=== PATIENT | male | born 1965 | race Caucasian/White ===

== ENCOUNTER 2022-03-12 19:39 | Inpatient (IN) | payer OTHER, SELFPAY ==
--- NOTE | ~2022-03-12 | MR_ITS ---
EXAMINATION: MR BRAIN WITHOUT AND WITH CONTRAST CLINICAL INFORMATION: Confusion. COMPARISON: CT head from 03/22/2022. TECHNIQUE: MRI of the brain was obtained using routine sequences without and following the administration of 8 mL of Gadavist intravenous contrast. FINDINGS: Dilation of the anterior cranial fossa is limited by susceptibility artifact from the patient's dental amalgam. Within this limitation, there is no focal restricted diffusion is demonstrated to suggest acute or subacute cerebral ischemia. No demonstrated evidence of acute or chronic hemorrhagic products on heme-sensitive imaging. Nonspecific scattered and partially confluent periventricular, deep white matter, and brainstem T2 FLAIR hyperintensities most commonly seen with mild to moderate underlying microangiopathy. Proportional prominence of the ventricles and sulcal spaces without evidence of obstructive hydrocephalus. No abnormal mass effect. No midline shift. Normal appearance of the pituitary gland. Normal positioning of the cerebellar tonsils. Normal arterial and venous vascular flow voids are present. No abnormal contrast enhancement. Normal, homogeneous marrow signal. Mild mucosal thickening of the paranasal sinuses. No signal abnormalities within the mastoids. MR/MR head/brain wo/w con IMPRESSION: 1. No demonstrated acute intracranial abnormalities. No abnormal intracranial enhancement. 2. Mild to moderate nonspecific white matter changes most commonly seen with underlying microangiopathy. Mild generalized cerebral volume loss.
--- NOTE | ~2022-03-12 | CT_ITS ---
EXAMINATION: CT HEAD WITHOUT CONTRAST CLINICAL INFORMATION: Acute mental status change COMPARISON: None TECHNIQUE: Imaging was performed from the skull base to vertex without intravenous administration of contrast. This CT examination was performed using dose optimization techniques as appropriate, variously including the following: *Automated exposure control *Adjustment of mA and/or kV according to patient size (this includes techniques or standardized protocols for targeted exams where dose is matched to indication/reason for exam; i.e. extremities or head) *Use of iterative reconstruction technique Total exam dose length product: 807 mGy-cm FINDINGS: No intra or extra-axial fluid collection, hemorrhage, or mass. No ventriculomegaly. No midline shift or herniation. Basal cisterns are patent. De Souza-white matter differentiation is maintained. No territorial encephalomalacia. No significant volume loss. There is no abnormal attenuation within the brain parenchyma. No calvarial fracture or soft tissue abnormality. The mastoid air cells and visualized portions of the paranasal sinuses are well aerated. CT/CT head/brain wo IV con IMPRESSION: 1. No acute intracranial pathology.
[2022-03-12 19:45] VITALS: BP 136/79; PULSE 86; RESP 16; TEMP 36.8; O2SAT 96; BMI 27.9
--- NOTE | 2022-03-12 19:50 | ED.PSYCH ---
HPI - Psych General Chief Complaint: Psychiatric Symptoms <Ofelia Calle NP - Last Filed: 03/13/22 02:43> Stated Complaint: SEC 12, calm/coop per EMS <Ofelia Calle NP - Last Filed: 03/13/22 02:43> Time Seen by Provider: 03/12/22 19:48 <Ofelia Calle NP - Last Filed: 03/13/22 02:43> Source: patient and EMS <Ofelia Calle NP - Last Filed: 03/13/22 02:43> Mode of arrival: EMS <Ofelia Calle NP - Last Filed: 03/13/22 02:43> Limitations: altered mental status <Ofelia Calle NP - Last Filed: 03/13/22 02:43> History of Present Illness HPI Narrative: 57-year-old male presents via EMS for decline in mental status. Patient has been paranoid, and unable to care for himself. <Ofelia Calle NP - Last Filed: 03/13/22 02:43> MD complaint: altered mental status and other (Paranoia, dmitriy) <Ofelia Calle NP - Last Filed: 03/13/22 02:43> Onset (ago): unknown <Ofelia Calle NP - Last Filed: 03/13/22 02:43> Duration: constant <Ofelia Calle NP - Last Filed: 03/13/22 02:43> History of same: Yes <Ofelia Calle NP - Last Filed: 03/13/22 02:43> Relieving factors: none <Ofelia Calle NP - Last Filed: 03/13/22 02:43> Context: significant life stressor <Ofelia Calle NP - Last Filed: 03/13/22 02:43> Associated symptoms: denies other symptoms <Ofelia Calle NP - Last Filed: 03/13/22 02:43> Treatments prior to arrival: placed on mental health hold <Ofelia Calle NP - Last Filed: 03/13/22 02:43> Related Data Home Medications: Home Medications Medication Instructions Recorded Confirmed levetiracetam 500 mg tablet 3 tab PO BID 03/12/22 03/12/22 levothyroxine 200 mcg tablet 1 tab PO DAILY 03/12/22 03/12/22 <Ofelia Calle NP - Last Filed: 03/13/22 02:43> Allergies/Adverse Reactions: Allergies Allergy/AdvReac Type Severity Reaction Status Date / Time amoxicillin [AMOXICILLIN] Allergy Unknown VOMITING/ABD Unverified 11/19/19 19:25 PAIN <Ofelia Calle NP - Last Filed: 03/13/22 02:43> Review of Systems Review of Systems: Yes Unobtainable due to mental status <Ofelia Calle NP - Last Filed: 03/13/22 02:43> [facility] Past Medical History Attestation statement: The following information was validated with the patient. <Ofelia Calle NP - Last Filed: 03/13/22 02:43> Source: old records reviewed <Ofelia Calle NP - Last Filed: 03/13/22 02:43> Medical History: Medical History (Updated 03/13/22 @ 02:43 by Ofelia Calle NP) Hypothyroidism Seizures <Ofelia Calle NP - Last Filed: 03/13/22 02:43> Social History Social History: Social History Advance Directives: No Advance Directives Information Provided: Yes <Ofelia Calle NP - Last Filed: 03/13/22 02:43> Physical Exam Vital Signs: Vital Signs: Last Vital Signs Temp 97.8 F 03/13/22 06:28 Pulse 63 03/13/22 06:28 Resp 03/13/22 06:28 BP 115/78 03/13/22 06:28 Pulse Ox 98 03/13/22 06:28 O2 Del Method 03/13/22 06:28 BMI result Body Mass Index 27.9 <Ofelia Calle NP - Last Filed: 03/13/22 02:43> Vital Signs: Last Vital Signs Temp 97.8 F 03/13/22 06:28 Pulse 63 03/13/22 06:28 Resp 03/13/22 06:28 BP 115/78 03/13/22 06:28 Pulse Ox 98 03/13/22 06:28 O2 Del Method 03/13/22 06:28 BMI result Body Mass Index 27.9 <Janey Garcia MD - Last Filed: 03/13/22 06:48> Appearance: Alert. Paranoid. Eyes: Pupils equal, round and reactive to light. ENT: Pharynx normal. Neck: Normal inspection. Neck supple. CVS: Normal heart rate and rhythm. Pulses normal. Respiratory: No respiratory distress. Breath sounds normal. Abdomen: Soft and nontender. Skin: Skin warm and dry. Normal skin color. Normal skin turgor. Extremities: No lower extremity edema. Gait balanced and coordinated. Neuro: No motor deficit. No sensory deficit. Cranial nerves 2-12 intact. <Ofelia Calle NP - Last Filed: 03/13/22 02:43> Course Course Course Narrative: 57-year-old male presents for psychiatric evaluation. Brought in by EMS and placed on a Section 12 in the community. Patient is not answering questions, is politely noncompliant. I do not feel that this patient understands what is asked of him. Patient requires multiple redirections. Will order labs, CT scan of the head, and care team consult. 20:14 patient requires p.o. medications for what seems to be anxiety. CT scan of head is negative for acute findings requiring emergent intervention. Lab values are within not concerning, H&H 13.1/41.1, glucose elevated at 166, urinalysis is negative for acute findings, influenza COVID RSV negative, drugs of abuse screen negative. Care team discussed patient's condition with his sister, sister states that this patient is not at his baseline. Sister is the rep payee. Patient was just served with a restraining order against his on 03/08/2022. At this time I feel that this patient requires further investigation, as well as care team. Plan of care is bed search. Physician observation at this time. <Ofelia Calle NP - Last Filed: 03/13/22 02:43> Reevaluation(s) Reevaluation #1: Continue physician observation, this patient is a Section 12 inpatient bed search for paranoia sent in by [facility]. Patient initially arrived agitated but did accept oral medications agitation and there were no acute events overnight and medication reconciliation has been completed. <Janey Garcia MD - Last Filed: 03/13/22 06:48> Time: 06:47 <Janey Garcia MD - Last Filed: 03/13/22 06:48> Medications Administered Generic Name Dose Route Start Last Admin Trade Name Freq PRN Reason Stop Dose Admin Levetiracetam 1,500 mg 03/12/22 23:45 03/13/22 00:05 Levetiracetam 500 Mg Tablet PO Not Given BID MANAS Levothyroxine Sodium 200 mcg 03/13/22 06:30 03/13/22 06:29 Levothyroxine Sodium 200 Mcg Tablet PO 200 mcg DAILY@0630 MANAS Administration Discontinued Medications Generic Name Dose Route Start Last Admin Trade Name Freq PRN Reason Stop Dose Admin Diphenhydramine HCl 50 mg 03/12/22 20:12 03/12/22 20:18 Diphenhydramine Hcl 25 Mg Capsule PO 03/12/22 20:13 50 mg ONCE ONE Administration Haloperidol 5 mg 03/12/22 20:12 03/12/22 20:17 Haloperidol 5 Mg Tablet PO 03/12/22 20:13 5 mg ONCE ONE Administration Lorazepam 2 mg 03/12/22 20:11 03/12/22 20:17 Lorazepam 1 Mg Tablet PO 03/12/22 20:12 2 mg ONCE ONE Administration <Ofelia Calle NP - Last Filed: 03/13/22 02:43> Medications Administered Generic Name Dose Route Start Last Admin Trade Name Freq PRN Reason Stop Dose Admin Levetiracetam 1,500 mg 03/12/22 23:45 03/13/22 00:05 Levetiracetam 500 Mg Tablet PO Not Given BID MANAS Levothyroxine Sodium 200 mcg 03/13/22 06:30 03/13/22 06:29 Levothyroxine Sodium 200 Mcg Tablet PO 200 mcg DAILY@0630 MANAS Administration Discontinued Medications Generic Name Dose Route Start Last Admin Trade Name Freq PRN Reason Stop Dose Admin Diphenhydramine HCl 50 mg 03/12/22 20:12 03/12/22 20:18 Diphenhydramine Hcl 25 Mg Capsule PO 03/12/22 20:13 50 mg ONCE ONE Administration Haloperidol 5 mg 03/12/22 20:12 03/12/22 20:17 Haloperidol 5 Mg Tablet PO 03/12/22 20:13 5 mg ONCE ONE Administration Lorazepam 2 mg 03/12/22 20:11 03/12/22 20:17 Lorazepam 1 Mg Tablet PO 03/12/22 20:12 2 mg ONCE ONE Administration <Janey Garcia MD - Last Filed: 03/13/22 06:48> Medical Decision Making Differential Diagnosis Differential Diagnoses: The differential diagnosis associated with the presentation includes <Ofelia Calle NP - Last Filed: 03/13/22 02:43> Psychosis, dementia, dmitriy <Ofelia Calle NP - Last Filed: 03/13/22 02:43> Admission/Observation Consideration of admission/observation: Escalation of care including admission/observation considered <Ofelia Calle NP - Last Filed: 03/13/22 02:43> Psychiatric admission recommended <Ofelia Calle NP - Last Filed: 03/13/22 02:43> Consult Healthcare Provider Management of the patient was discussed with: Behavioral Health Provider <Ofelia Calle NP - Last Filed: 03/13/22 02:43> Lab Data MDM Lab Attestation statement: I reviewed the patient's lab results. <Ofelia Calle NP - Last Filed: 03/13/22 02:43> Result Diagrams: 03/12/22 21:36 03/12/22 21:36 <Ofelia Calle NP - Last Filed: 03/13/22 02:43> Labs: Lab Results 03/12/22 03/12/22 03/12/22 Range/Units 20:23 20:23 20:23 WBC (4.8-10.8) X10*3/uL RBC (4.60-5.80) X10*6/uL Hgb (14.0-18.0) g/dl Hct (42.0-52.0) % MCV (80.0-98.0) fL MCH (27.0-33.0) pg MCHC (31.0-36.0) g/dl RDW (11.0-16.0) % Plt Count (160-400) X10*3/uL MPV (9.4-12.4) fL Immature Gran % (Auto) (0.0-0.4) % Neut % (Auto) (45-73) % Lymph % (Auto) (20-40) % [place] % (Auto) (2-11) % Eos % (Auto) (0-4) % Baso % (Auto) (0-2) % Lymph # (Auto) (1.2-4.9) X10*3/uL [place] # (Auto) (0.1-1.2) X10*3/uL Eos # (Auto) (0.0-0.4) X10*3/uL Baso # (Auto) (0.0-0.2) X10*3/uL Abs Immat Gran (auto) (0.00-0.03) X10*3/uL Absolute Neuts (auto) (2.0-8.3) x10*3/uL Absolute Nucleated RBC (0.0-0.012) X10*3/uL Nucleated RBC % (auto) (0.0-0.2) /100WBC Sodium (135-145) mmol/L Potassium (3.3-5.1) mmol/L Chloride (96-108) mmol/L Carbon Dioxide (22-29) mmol/L Anion Gap (12-20) BUN (9-16) mg/dL Creatinine (0.5-1.4) mg/dL Estim Creat Clear Calc Estimated GFR Random Glucose (60-115) mg/dL Calcium (8.4-10.2) mg/dL Total Bilirubin (0.0-1.0) mg/dL Direct Bilirubin (0.0-0.5) mg/dL AST (5-37) U/L ALT (0-40) U/L Alkaline Phosphatase (39-117) U/L Total Protein (6.5-8.0) g/dL Albumin (3.5-5.0) g/dL Lipase (8-78) U/L Urine Color Dark Yellow Urine Appearance Clear Urine pH 5.5 (5.0-9.0) Ur Specific [place] >= 1.030 H (1.005-1.025) Urine Protein 30 (1+) H (Neg-Trace) mg/dL Urine Glucose (UA) Negative (Negative) mg/dL Urine Ketones Trace (Negative) mg/dL Urine Blood Negative (Negative) Urine Nitrite Negative (Negative) Ur Leukocyte Esterase Negative (Negative) Urine RBC 0-2 (0-2) /HPF Urine WBC 0-5 (0-5) /HPF Ur Squamous Epith Cells 0-2 (0-2) /HPF Urine Bacteria None Seen (None Seen) Hyaline Casts 0-2 (0-2) /LPF Urine Opiates Screen Not Detected (Not Detect) Urine Fentanyl Screen Not Detected (Not Detect) Ur Barbiturates Screen Not Detected (Not Detect) Ur Phencyclidine Scrn Not Detected (Not Detect) Ur Amphetamines Screen Not Detected (Not Detect) U Benzodiazepines Scrn Not Detected (Not Detect) Urine Cocaine Screen Not Detected (Not Detect) U Marijuana (THC) Screen Not Detected (Not Detect) Influenza Type A (PCR) NEGATIVE (Negative) Influenza Type B (PCR) NEGATIVE (Negative) RSV RNA Qual (PCR) NEGATIVE (Negative) SARS-CoV-2 RNA (RT-PCR) NEGATIVE (Negative) 03/12/22 03/12/22 Range/Units 21:36 21:36 WBC 5.8 (4.8-10.8) X10*3/uL RBC 4.96 (4.60-5.80) X10*6/uL Hgb 13.1 L (14.0-18.0) g/dl Hct 41.1 L (42.0-52.0) % MCV 82.9 (80.0-98.0) fL MCH 26.4 L (27.0-33.0) pg MCHC 31.9 (31.0-36.0) g/dl RDW 18.3 H (11.0-16.0) % Plt Count 203 (160-400) X10*3/uL MPV 9.3 L (9.4-12.4) fL Immature Gran % (Auto) 0.7 H (0.0-0.4) % Neut % (Auto) 55.0 (45-73) % Lymph % (Auto) 36.3 (20-40) % [place] % (Auto) 5.2 (2-11) % Eos % (Auto) 2.1 (0-4) % Baso % (Auto) 0.7 (0-2) % Lymph # (Auto) 2.1 (1.2-4.9) X10*3/uL [place] # (Auto) 0.3 (0.1-1.2) X10*3/uL Eos # (Auto) 0.1 (0.0-0.4) X10*3/uL Baso # (Auto) 0.0 (0.0-0.2) X10*3/uL Abs Immat Gran (auto) 0.04 H (0.00-0.03) X10*3/uL Absolute Neuts (auto) 3.2 (2.0-8.3) x10*3/uL Absolute Nucleated RBC 0.000 (0.0-0.012) X10*3/uL Nucleated RBC % (auto) 0.0 (0.0-0.2) /100WBC Sodium 139 (135-145) mmol/L Potassium 3.4 (3.3-5.1) mmol/L Chloride 103 (96-108) mmol/L Carbon Dioxide 27 (22-29) mmol/L Anion Gap 12 (12-20) BUN 17 H (9-16) mg/dL Creatinine 1.27 (0.5-1.4) mg/dL Estim Creat Clear Calc 73.6 Estimated GFR 59 Random Glucose 166 H (60-115) mg/dL Calcium 8.7 (8.4-10.2) mg/dL Total Bilirubin 1.1 H (0.0-1.0) mg/dL Direct Bilirubin 0.3 (0.0-0.5) mg/dL AST 43 H (5-37) U/L ALT 25 (0-40) U/L Alkaline Phosphatase 75 (39-117) U/L Total Protein 6.3 L (6.5-8.0) g/dL Albumin 4.1 (3.5-5.0) g/dL Lipase 44 (8-78) U/L Urine Color Urine Appearance Urine pH (5.0-9.0) Ur Specific [place] (1.005-1.025) Urine Protein (Neg-Trace) mg/dL Urine Glucose (UA) (Negative) mg/dL Urine Ketones (Negative) mg/dL Urine Blood (Negative) Urine Nitrite (Negative) Ur Leukocyte Esterase (Negative) Urine RBC (0-2) /HPF Urine WBC (0-5) /HPF Ur Squamous Epith Cells (0-2) /HPF Urine Bacteria (None Seen) Hyaline Casts (0-2) /LPF Urine Opiates Screen (Not Detect) Urine Fentanyl Screen (Not Detect) Ur Barbiturates Screen (Not Detect) Ur Phencyclidine Scrn (Not Detect) Ur Amphetamines Screen (Not Detect) U Benzodiazepines Scrn (Not Detect) Urine Cocaine Screen (Not Detect) U Marijuana (THC) Screen (Not Detect) Influenza Type A (PCR) (Negative) Influenza Type B (PCR) (Negative) RSV RNA Qual (PCR) (Negative) SARS-CoV-2 RNA (RT-PCR) (Negative) <Ofelia Calle NP - Last Filed: 03/13/22 02:43> Lab Results 03/12/22 03/12/22 03/12/22 Range/Units 20:23 20:23 20:23 WBC (4.8-10.8) X10*3/uL RBC (4.60-5.80) X10*6/uL Hgb (14.0-18.0) g/dl Hct (42.0-52.0) % MCV (80.0-98.0) fL MCH (27.0-33.0) pg MCHC (31.0-36.0) g/dl RDW (11.0-16.0) % Plt Count (160-400) X10*3/uL MPV (9.4-12.4) fL Immature Gran % (Auto) (0.0-0.4) % Neut % (Auto) (45-73) % Lymph % (Auto) (20-40) % [place] % (Auto) (2-11) % Eos % (Auto) (0-4) % Baso % (Auto) (0-2) % Lymph # (Auto) (1.2-4.9) X10*3/uL [place] # (Auto) (0.1-1.2) X10*3/uL Eos # (Auto) (0.0-0.4) X10*3/uL Baso # (Auto) (0.0-0.2) X10*3/uL Abs Immat Gran (auto) (0.00-0.03) X10*3/uL Absolute Neuts (auto) (2.0-8.3) x10*3/uL Absolute Nucleated RBC (0.0-0.012) X10*3/uL Nucleated RBC % (auto) (0.0-0.2) /100WBC Sodium (135-145) mmol/L Potassium (3.3-5.1) mmol/L Chloride (96-108) mmol/L Carbon Dioxide (22-29) mmol/L Anion Gap (12-20) BUN (9-16) mg/dL Creatinine (0.5-1.4) mg/dL Estim Creat Clear Calc Estimated GFR Random Glucose (60-115) mg/dL Calcium (8.4-10.2) mg/dL Total Bilirubin (0.0-1.0) mg/dL Direct Bilirubin (0.0-0.5) mg/dL AST (5-37) U/L ALT (0-40) U/L Alkaline Phosphatase (39-117) U/L Total Protein (6.5-8.0) g/dL Albumin (3.5-5.0) g/dL Lipase (8-78) U/L Urine Color Dark Yellow Urine Appearance Clear Urine pH 5.5 (5.0-9.0) Ur Specific [place] >= 1.030 H (1.005-1.025) Urine Protein 30 (1+) H (Neg-Trace) mg/dL Urine Glucose (UA) Negative (Negative) mg/dL Urine Ketones Trace (Negative) mg/dL Urine Blood Negative (Negative) Urine Nitrite Negative (Negative) Ur Leukocyte Esterase Negative (Negative) Urine RBC 0-2 (0-2) /HPF Urine WBC 0-5 (0-5) /HPF Ur Squamous Epith Cells 0-2 (0-2) /HPF Urine Bacteria None Seen (None Seen) Hyaline Casts 0-2 (0-2) /LPF Urine Opiates Screen Not Detected (Not Detect) Urine Fentanyl Screen Not Detected (Not Detect) Ur Barbiturates Screen Not Detected (Not Detect) Ur Phencyclidine Scrn Not Detected (Not Detect) Ur Amphetamines Screen Not Detected (Not Detect) U Benzodiazepines Scrn Not Detected (Not Detect) Urine Cocaine Screen Not Detected (Not Detect) U Marijuana (THC) Screen Not Detected (Not Detect) Influenza Type A (PCR) NEGATIVE (Negative) Influenza Type B (PCR) NEGATIVE (Negative) RSV RNA Qual (PCR) NEGATIVE (Negative) SARS-CoV-2 RNA (RT-PCR) NEGATIVE (Negative) 03/12/22 03/12/22 Range/Units 21:36 21:36 WBC 5.8 (4.8-10.8) X10*3/uL RBC 4.96 (4.60-5.80) X10*6/uL Hgb 13.1 L (14.0-18.0) g/dl Hct 41.1 L (42.0-52.0) % MCV 82.9 (80.0-98.0) fL MCH 26.4 L (27.0-33.0) pg MCHC 31.9 (31.0-36.0) g/dl RDW 18.3 H (11.0-16.0) % Plt Count 203 (160-400) X10*3/uL MPV 9.3 L (9.4-12.4) fL Immature Gran % (Auto) 0.7 H (0.0-0.4) % Neut % (Auto) 55.0 (45-73) % Lymph % (Auto) 36.3 (20-40) % [place] % (Auto) 5.2 (2-11) % Eos % (Auto) 2.1 (0-4) % Baso % (Auto) 0.7 (0-2) % Lymph # (Auto) 2.1 (1.2-4.9) X10*3/uL [place] # (Auto) 0.3 (0.1-1.2) X10*3/uL Eos # (Auto) 0.1 (0.0-0.4) X10*3/uL Baso # (Auto) 0.0 (0.0-0.2) X10*3/uL Abs Immat Gran (auto) 0.04 H (0.00-0.03) X10*3/uL Absolute Neuts (auto) 3.2 (2.0-8.3) x10*3/uL Absolute Nucleated RBC 0.000 (0.0-0.012) X10*3/uL Nucleated RBC % (auto) 0.0 (0.0-0.2) /100WBC Sodium 139 (135-145) mmol/L Potassium 3.4 (3.3-5.1) mmol/L Chloride 103 (96-108) mmol/L Carbon Dioxide 27 (22-29) mmol/L Anion Gap 12 (12-20) BUN 17 H (9-16) mg/dL Creatinine 1.27 (0.5-1.4) mg/dL Estim Creat Clear Calc 73.6 Estimated GFR 59 Random Glucose 166 H (60-115) mg/dL Calcium 8.7 (8.4-10.2) mg/dL Total Bilirubin 1.1 H (0.0-1.0) mg/dL Direct Bilirubin 0.3 (0.0-0.5) mg/dL AST 43 H (5-37) U/L ALT 25 (0-40) U/L Alkaline Phosphatase 75 (39-117) U/L Total Protein 6.3 L (6.5-8.0) g/dL Albumin 4.1 (3.5-5.0) g/dL Lipase 44 (8-78) U/L Urine Color Urine Appearance Urine pH (5.0-9.0) Ur Specific [place] (1.005-1.025) Urine Protein (Neg-Trace) mg/dL Urine Glucose (UA) (Negative) mg/dL Urine Ketones (Negative) mg/dL Urine Blood (Negative) Urine Nitrite (Negative) Ur Leukocyte Esterase (Negative) Urine RBC (0-2) /HPF Urine WBC (0-5) /HPF Ur Squamous Epith Cells (0-2) /HPF Urine Bacteria (None Seen) Hyaline Casts (0-2) /LPF Urine Opiates Screen (Not Detect) Urine Fentanyl Screen (Not Detect) Ur Barbiturates Screen (Not Detect) Ur Phencyclidine Scrn (Not Detect) Ur Amphetamines Screen (Not Detect) U Benzodiazepines Scrn (Not Detect) Urine Cocaine Screen (Not Detect) U Marijuana (THC) Screen (Not Detect) Influenza Type A (PCR) (Negative) Influenza Type B (PCR) (Negative) RSV RNA Qual (PCR) (Negative) SARS-CoV-2 RNA (RT-PCR) (Negative) <Janey Garcia MD - Last Filed: 03/13/22 06:48> Independent Interpretation I performed an independent interpretation of an: EKG and CT Scan <Ofelia Calle NP - Last Filed: 03/13/22 02:43> Interpretation: Vent. rate 68 BPM IN interval 154 ms QRS duration 98 ms QT/QTc 420/446 ms P-R-T axes 55 0 84 Normal sinus rhythm Incomplete right bundle branch block Nonspecific T wave abnormality Abnormal ECG No previous ECGs available 12-MAR-2022 23:12:04 <WILLIAM Do Last Filed: 03/13/22 02:43> Radiology Impression Discussion of test interpretation with radiology: I have reviewed the radiologist's reading. <WILLIAM Do Last Filed: 03/13/22 02:43> Radiologist Impression: FINDINGS: No intra or extra-axial fluid collection, hemorrhage, or mass. No ventriculomegaly. No midline shift or herniation. Basal cisterns are patent. De Souza-white matter differentiation is maintained. No territorial encephalomalacia. ?No significant volume loss. There is no abnormal attenuation within the brain parenchyma. No calvarial fracture or soft tissue abnormality. ?The mastoid air cells and visualized portions of the paranasal sinuses are well aerated. CT/CT head/brain wo IV con IMPRESSION: 1. No acute intracranial pathology. ? <WILLIAM Do Last Filed: 03/13/22 02:43> Independent Historian Clinical information obtained from an independent historian. History obtained from or confirmed by: Other (Sister) <WILLIAM Do Last Filed: 03/13/22 02:43> External Record Review Patient has no prior records at this facility. <WILLIAM Do Last Filed: 03/13/22 02:43> Social Determinants Patient?s care significantly limited by Social Determinants of Health including: Other Social Determinant of Health <WILLIAM Do Last Filed: 03/13/22 02:43> Discharge Plan Discharge Clinical Impression: Acute psychosis <WILLIAM Do Last Filed: 03/13/22 02:43> Patient Disposition: Still a Patient <WILLIAM Do Last Filed: 03/13/22 02:43> Prescriptions: No Action levetiracetam 500 mg tablet 3 tab PO BID levothyroxine 200 mcg tablet 1 tab PO DAILY <Ofelia Calle NP - Last Filed: 03/13/22 02:43> Interventions: [place]-Suicide Risk Severity Scale Last Done: 03/13/22 06:00 <WILLIAM Do Last Filed: 03/13/22 02:43>
--- NOTE | 2022-03-12 19:51 | ECG_ITS ---
Test Reason : med clear Blood Pressure : / mmHG Vent. Rate : 068 BPM Atrial Rate : 068 BPM P-R Int : 154 ms QRS Dur : 098 ms QT Int : 420 ms P-R-T Axes : 055 000 084 degrees QTc Int : 446 ms Normal sinus rhythm Incomplete right bundle branch block Nonspecific T wave abnormality Abnormal ECG No previous ECGs available Referred By: Ofelia Calle Electronically Signed By:Chirag Burnett
[2022-03-12] MEDS: HaloperidoL 5 MG TABLET PO (20:17)
[2022-03-12] MEDS: LORazepam 1 MG TABLET 2 MG PO (20:17)
[2022-03-12] MEDS: diphenhydrAMINE HCL 25 MG CAPSULE 50 MG PO (20:18)
--- NOTE | 2022-03-12 20:20 | MHC.CARE ---
Pt's sister Ros Gómez phone number is .
[2022-03-12 20:35] LABS: Appearance Urine Clear; Color Urine Dark Yellow; Glucose Urine UA Negative (Negative); Leukocyte Esterase Urine Negative (Negative); Nitrite Urine Negative (Negative); PH 5.5 (5.0-9.0); Specific Gravity - Urine >= 1.030 (1.005-1.025); UMIC TRIGGER UACC YES; Urine Blood Negative (Negative); Urine Ketones Trace mg/dL (Negative); Urine Protein 30 (1+) mg/dL (Neg-Trace)
[2022-03-12 20:37] LABS: Bacteria Urine None Seen (None Seen); Hyaline Casts Urine 0-2 /LPF (0-2); RBC Urine 0-2 /HPF (0-2); Squamous Epithelial Cell Urine 0-2 /HPF (0-2); WBC Urine 0-5 /HPF (0-5)
[2022-03-12 20:39] LABS: Amphetamine Screen Urine Not Detected (Not Detect); Barbiturates, Urine Not Detected (Not Detect); Benzodiazepines Screen Urine Not Detected (Not Detect); Cannabinoid Screen Urine Not Detected (Not Detect); Cocaine Screen Urine Not Detected (Not Detect); Fentanyl, urine Not Detected (Not Detect); Opiate Screen Urine Not Detected (Not Detect); Phencyclidine Screen Urine Not Detected (Not Detect)
--- OUTSIDE RECORDS SUMMARY | 2022-03-12 20:58 | XMS_ITS | Continuity of Care Document ---
:1965 Author Organization [facility] Address [address] [place] [address]- Care Team Providers Name Role Phone Alysia FIELDS, Sanjeev Burt Primary Care Physician Encounter [facility] Date(s): 11/17/20 - 12/17/20 [facility] [address], [place] [address] Allergies, Adverse Reactions, Alerts Substance Reaction Severity Status amoxicillin Active penicillin upset stomach Active Immunizations Not Given Vaccine Date Status Refusal Reason influenza virus vaccine, inactivated 02/25/20 Not Given Patient Refuses pneumococcal 23-valent vaccine 02/25/20 Not Given P atient Refuses Medications divalproex sodium 500 mg oral tablet, extended release 3 tablet = 1,500 mg, By Mouth, Daily, # 90 tablet, 0 Refills, Maintenance, 12/06/20 14:01:00 EDT, E[id number], Partial fill upon patient request if the prescription is for a schedule II opioid drug., 179, cm, 12/02/20 16:26:00 EDT, H... Start Date: 12/06/20 Stop Date: 01/05/21 Status: Orderedlevothyroxine 0.2 mg oral tablet TAKE 1 TABLET BY MOUTH EVERY DAY Start Date: 12/03/20 Status: Ordered Problem List Condition Effective Dates Status Health Status Informant CAP (community acquired Active pneumonia)(Confirmed) Social History Social History Type Response Smoking Status Former smoker, quit more quoc n 30 days ago entered on: 12/05/20 Sex
--- OUTSIDE RECORDS SUMMARY | 2022-03-12 20:58 | XMS_ITS | Continuity of Care Document ---
:1965 Author Organization [facility] Address Unavailable , Care Team Providers Name Role Phone Sanjeev Hatfield MD [id number] Attending Physician: Rosales De Paz MD Admitting Physician: Rosales De Paz MD Allergies, Adverse Reactions, Alerts Substance Reaction Severity Status amoxicillin Active penicillin upset stomach Active Immunizations Not Given Vaccine Date Status Refusal Reason influenza virus vaccine, inactivated 02/25/20 Not Given Patient Refuses pneumococcal 23-valent vaccine 02/25/20 Not Given P atient Refuses Medications cyproheptadine 4 mg oral tablet 8 mg, 2, tablet, By Mouth, Daily, # 21 tablet, Refills 0, Maintenance, 12/28/20 7:34:00 EDT, Partialfill upon patient request if the prescription is for a schedule II opioid drug. Start Date: 12/28/20 Stop Date: 01/04/21 Status: OrderedDivalproex Sodium ER Tablet = 1,000 mg, Daily, take along with 250 mg in am, 0 Refills, Maintenance, 12/28/20 7:30:00 EDT, Partial fill upon patient request if the prescription is for a schedule II opioid drug. Start Date: 12/28/20 Status: OrderedlevETIRAcetam 500 mg oral tablet See Instructions, 3 tablets by mouth twice a day, 0 Refills, Maintenance, 12/28/20 7:32:00 EDT, Partial fill upon patient request if the prescription is for a schedule II opioid drug. Start Date: 12/28/20 Status: Orderedlevothyroxine 0.2 mg oral tablet TAKE 1 TABLET BY MOUTH EVERY DAY Start Date: 12/03/20 Status: Orderedmirtazapine 15 mg oral tablet 2 tablet = 30 mg, By Mouth, Daily at bedtime, # 30 tablet, 0 Refills, Maintenance, 12/28/20 7:33:00 EDT, Tablet, Partial fill upon patient request if the prescription is for a schedule II opioid drug. Start Date: 12/28/20 Status: Ordered Problem List Condition Effective Dates Status Health Status Informant CAP (community acquired Active pneumonia)(Confirmed) Social History Social History Type Response Smoking Status Former smoker, quit more quoc n 30 days ago entered on: 12/28/20 Sex
--- OUTSIDE RECORDS SUMMARY | 2022-03-12 20:58 | XMS_ITS | Continuity of Care Document ---
:1965 Author Organization [facility] Address Unavailable , Care Team Providers Name Role Phone Sanjeev Hatfield MD Primary Care Physician Encounter [facility] [place] ACCT R [id number] Date(s): 01/02/21 - 02/01/21 [facility] Attending Physician: Vickie Gary Admitting Physician: Vickie Gary Referring Physician: Vickie Gary Allergies, Adverse Reactions, Alerts Substance Reaction Severity [...]
--- OUTSIDE RECORDS SUMMARY | 2022-03-12 20:58 | XMS_ITS | Continuity of Care Document ---
:1965 Author Organization [facility] Address [address] [place] [address]- Care Team Providers Name Role Phone Rickey Neal MD Primary Care Physician Encounter [facility] Date(s): 02/24/20 - 03/25/[address] [address] Attending Physician: Dustin Ashraf Admitting Physician: Dustin Ashraf Referring Physician: Dustin Ashraf Allergies, Adverse Reactions, Alerts Substance Reaction Severity Status penicillin upset stomach Active Immunizations Not Given Vaccine Date Status Refusal Reason influenza virus vaccine, inactivated 02/25/20 Not Given Patient Refuses pneumococcal 23-valent vaccine 02/25/20 Not Given P atient Refuses Medications amantadine 50 mg/5 mL oral syrup 10 mL = 100 mg, By Mouth, Daily, 0 Refills, Maintenance, 03/01/20 10:09:00 EST, Syrup, Partial fill upon patient request if the prescription is for a schedule II opioid drug. Start Date: 03/01/20 Status: Orderedbisacodyl 10 mg rectal suppository 1 supp = 10 mg, Rectally, Daily, PRN Constipation, 0 Refills, Maintenance, 03/01/20 10:09:00 EST, Suppository, Partial fill upon patient request if the prescription is for a schedule II opioid drug. Start Date: 03/01/20 Status: OrderedclonazePAM 0.5 mg oral tablet 1 tablet = 0.5 mg, By Mouth, 3 times a day, 0 Refills, Maintenance, 03/01/20 10:09:00 EST, Tablet, Partial fill upon patient request if the prescription is for a schedule II opioid drug. Start Date: 03/01/20 Status: Orderedlactulose 10 gm/15 ml oral syrup 30 mL = 20 Gm, By Mouth, Daily at bedtime, PRN Constipation, 0 Refills, Maintenance, 03/01/20 10:09:00 EST, Syrup, Partial fill upon patient request if the prescription is for a schedule II opioid drug. Start Date: 03/01/20 Status: OrderedlevETIRAcetam 500 mg oral tablet 3 tablet = 1,500 mg, By Mouth, 2 times a day, 0 Refills, Maintenance, 03/01/20 10:09:00 EST, Tablet,Partial fill upon patient request if the prescription is for a schedule II opioid drug. Start Date: 03/01/20 Status: Orderedlevothyroxine 125 mcg (0.125 mg) oral tablet = 250 mcg, By Mouth, Daily, 0 Refills, Maintenance, 02/09/20 12:12:00 EST, Tablet, Partial fill uponpatient request if the prescription is for a schedule II opioid drug. Start Date: 02/09/20 Status: OrderedMaalox Plus Liquid 30 mL, By Mouth, Every 4 hours, PRN Dyspepsia, 0 Refills, Maintenance, 03/01/20 10:09:00 EST, Suspension, Partial fill upon patient request if the prescription is for a schedule II opioid drug. Start Date: 03/01/20 Status: Orderedpantoprazole 40 mg oral delayed release tablet = 40 mg, By Mouth, Daily, 0 Refills, Maintenance, 02/09/20 12:15:00 EST, EC Tablet Start Date: 02/09/20 Status: OrderedpredniSONE 10 mg oral tablet 1 tablet = 10 mg, By Mouth, Daily, # 2 tablet, 0 Refills, Maintenance, 03/01/20 10:09:00 EST, Tablet, Partial fill upon patient request if the prescription is for a schedule II opioid drug. Start Date: 03/01/20 Stop Date: 03/03/20 Status: OrderedTylenol 325 mg oral tablet 650 mg, 2, tablet, By Mouth, Every 6 hours, PRN, Mild pain or headache, Refills 0, Maintenance, Temperature, 03/01/20 10:09:00 EST, Partial fill upon patient request if the prescription is for a schedule II opioid drug. Start Date: 03/01/20 Status: Ordered Problem List Condition Effective Dates Status Health Status Informant CAP (community acquired Active pneumonia)(Confirmed)
--- OUTSIDE RECORDS SUMMARY | 2022-03-12 20:58 | XMS_ITS | Continuity of Care Document ---
:1965 Author Organization [facility] Address [address] [place] [address]- Care Team Providers Name Role Phone Not on Staff, PCP Primary Care Physician Unavailable Encounter [facility] Date(s): 01/16/20 - 02/09/[address] [address] Encounter Diagnosis Hypothyroidism (Final) - 01/16/20 Discharge Disposition: A-Transfer SNF Attending Physician: Jermain Rodriguez MD Admitting Physician: Niki Del Castillo MD Referring Physician: Not on Staff, Referring MD Allergies, Adverse Reactions, Alerts Substance Reaction Severity Status penicillin upset stomach Active Medications amantadine 50 mg/5 mL oral syrup 10 mL = 100 mg, By Mouth, 2 times a day, 0 Refills, Maintenance, 02/09/20 12:11:00 EST, Syrup, Partial fill upon patient request if the prescription is for a schedule II opioid drug. Start Date: 02/09/20 Status: OrderedEnoxaparin 0.4 mL = 40 mg, Subcutaneous Injection, Daily, 0 Refills, Maintenance, 02/09/20 12:11:00 EST, Injection, Partial fill upon patient request if the prescription is for a schedule II opioid drug. Start Date: 02/09/20 Status: OrderedInsulin Lispro 2-10 units, Subcutaneous Injection, 3 times a day before meals, << Sliding Scale Comments >> 150 - 199 2 units Call if less than 100 200 - 249 4 units 250 - 299 6 units 300 - 349 8 units 350 - 399 10 units Call if greater than 400 <... Start Date: 02/09/20 Status: OrderedlevETIRAcetam 500 mg oral tablet 2 tablet = 1,000 mg, By Mouth, 2 times a day, # 120 tablet, 0 Refills, Maintenance, 02/09/20 12:28:00 EST, Tablet, Partial fill upon patient request if the prescription is for a schedule II opioid drug. Start Date: 02/09/20 Stop Date: 03/10/20 Status: Orderedlevothyroxine 125 mcg (0.125 mg) oral tablet = 250 mcg, By Mouth, Daily, 0 Refills, Maintenance, 02/09/20 12:12:00 EST, Tablet, Partial fill uponpatient request if the prescription is for a schedule II opioid drug. Start Date: 02/09/20 Status: Orderedpantoprazole 40 mg oral delayed release tablet = 40 mg, By Mouth, Daily, 0 Refills, Maintenance, 02/09/20 12:15:00 EST, EC Tablet Start Date: 02/09/20 Status: OrderedpredniSONE 10 mg oral tablet See Instructions, 40 mg po daily for 2 days then 30 mg for 1 week then 20 mg for 1 week then 10 mg for 1 week and stop, # 50 tablet, 0 Refills, Maintenance, 02/09/20 12:13:00 EST, Tablet, Partial fill upon patient request if the prescription is for a... Start Date: 02/09/20 Status: Ordered Problem List Condition Effective Dates Status Health Status Informant CAP (community acquired Active pneumonia)(Confirmed) Results Orders for Microbiology Reports Name Date Sputum Culture w/ Gram Smear 01/25/20 Blood Culture 01/18/20 Blood Culture #2 01/18/20 Microbiology Reports TEST:Sputum Culture STATUS:Auth (Verified) BODY SITE: SOURCE:ENDOTR COLLECTED DATE/TIME:01/25/20 4:20 PMSputum Culture SPECIMEN DESCRIPTION : ENDOTRACHEAL ASPIRATE SPECIAL REQUESTS : NONE GRAM STAIN : 2+ SQ.EPITHELIAL CELLS 4+ POLYMORPHONUCLEAR LEUKOCYTES 2+ GRAM POSITIVE COCCI 3+ GRAM POSITIVE RODS 1+ GRAM NEGATIVE RODS CULTURE : 3+ NORMAL BUZZ REPORT STATUS : FINAL 01/28/2020TEST:Blood Culture, Second Order STATUS:Auth (Verified) BODY SITE: SOURCE:Blood COLLECTED DATE/TIME:01/18/20 8:34 AMBlood Culture, Second Order SPECIMEN DESCRIPTION : BLOOD NO SITE SPECIAL REQUESTS : NONE CULTURE : NO GROWTH 5 DAYS. REPORT STATUS : FINAL 01/23/2020TEST:Blood Culture STATUS:Auth (Verified) BODY SITE: SOURCE:Blood COLLECTED DATE/TIME:01/18/20 8:18 AMBlood Culture SPECIMEN DESCRIPTION : BLOOD LH SPECIAL REQUESTS : NONE CULTURE : NO GROWTH 5 DAYS. REPORT STATUS : FINAL 01/23/2020Radiology Reports Exam Date Time Procedure Performing Provider Status 02/01/20 1:26 PM Chest Portable Adrian Ho (Verified ) Notes:(Chest Portable) Reason For Exam: Line PlacementRESULT: Chest Portable Chest Portable performed at 12:40 PM Reason: Line Placement; Clinical Question(s): Line Placement; Special Instructions: NGT in place? COMPARISON: Multiple prior chest x-rays, the most recent of which is dated 01/29/2020. FINDINGS: LINES AND TUBES: An enteric tube extends to the stomach. LUNGS AND PLEURA: Interval improved aeration of the retrocardiac left lung base with minimal linear atelectasis remaining. No pleural effusion. No pneumothorax. HEART, MEDIASTINUM AND SUNIL: Heart is normal in size. Normal mediastinal and hilar contour. BONES AND SOFT TISSUES: No acute abnormality. IMPRESSION: 1. Enteric tube extending to the stomach. 2. Interval improved aeration of the retrocardiac left lung base, with mild linear atelectasis remaining. WSN: [id number] Ordering Physician: Donaldo Oakley Dictated By: Jenifer Grayson MD Dictated Date/Time: 02/01/20 1:38 pm Reviewed By: Jenifer Grayson MD Signed By: Jenifer Grayson MD Signed Date/Time: 02/01/20 1:38 pm Transcribed By: ANIYA Transcribed Date/Time: 02/01/20 1:36 pm Exam Date Time Procedure Performing Provider Status 01/29/20 10:47 PM Chest Portable Jorge A Abarca (V erified) Notes:(Chest Portable) Reason For Exam: Other:RESULT: Chest Portable Chest Portable INDICATION/CLINICAL QUESTION: Reason: Other:; Clinical Question(s): Tube Placement; NG-tube placement- need confirmation / Tube Placement TECHNIQUE: AP chest 2144 hours 01/29/2020. COMPARISON: 01/27/2020. FINDINGS: LINES AND TUBES: NG tube tip extends well into the stomach.. LUNGS AND PLEURA: RIGHT CHEST: The lung is clear and there is no effusion. LEFT CHEST: The upper and midlung are clear. Mild worsening left retrocardiac consolidation. No effusion.. HEART AND MEDIASTINAL CONTOURS: Normal. BONES AND SOFT TISSUES: No acute abnormality.. IMPRESSION: 1. NG tube tip in stomach. 2. No right chest abnormality. 3. In the left chest mild worsening left retrocardiac consolidation. WSN: [id number] Ordering Physician: Donaldo Oakley Dictated By: Jesse Callahan MD Dictated Date/Time: 01/29/20 11:01 p Reviewed By: Jesse Callahan MD Signed By: Jesse Callahan MD Signed Date/Time: 01/29/20 11:01 pm Transcribed By: ANIYA Transcribed Date/Time: 01/29/20 11:00 pm Exam Date Time Procedure Performing Provider Status 01/27/20 10:21 AM Chest Portable Jarred Shipley (Verifi ed) Notes:(Chest Portable) Reason For Exam: Tube PlacementRESULT: Chest Portable Chest Portable Reason: Tube Placement; Clinical Question(s): Tube Placement COMPARISON: 01/25/2020 FINDINGS: Endotracheal tube tip projects approximately 5.5 cm above the verito. No change. Enteric tube courses below the diaphragm into the stomach. No change. Left basilar consolidation is stable. Biapical pleural capping is stable. IMPRESSION: Stable exam WSN: [id number] Ordering Physician: Shane Anaya Dictated By: Tenzin Briones MD Dictated Date/Time: 01/27/20 10:30 a Reviewed By: Tenzin Briones MD Signed By: Tenzin Briones MD Signed Date/Time: 01/27/20 10:30 am Transcribed By: ANIYA Transcribed Date/Time: 01/27/20 10:29 am Exam Date Time Procedure Performing Provider Status 01/25/20 10:14 AM Chest Portable Denise Harley (Verifi ed) Notes:(Chest Portable) Reason For Exam: CoughRESULT: Chest Portable Chest Portable Reason: Cough; Clinical Question(s): Pneumonia COMPARISON: 01/18/2020 FINDINGS: LINES AND TUBES: Endotracheal tube tip unchanged, mid trachea. Enteric tube side-port proximal gastric body, tip below inferior margin of image. LUNGS AND PLEURA: Persistent retrocardiac consolidation, but slightly improving aeration. Small left pleural effusion slightly smaller. Moderate bilateral apical pleural thickening unchanged. No pneumothorax. HEART, MEDIASTINUM AND SUNIL: Heart is normal in size. Normal mediastinal and hilar contour. BONES AND SOFT TISSUES: No acute abnormality. IMPRESSION: Improving retrocardiac consolidation and small left pleural effusion. WSN: [id number] Ordering Physician: Trace Cheng Dictated By: Alan Stoll MD Dictated Date/Time: 01/25/20 10:22 a Reviewed By: Alan Stoll MD Signed By: Alan Stoll MD Signed Date/Time: 01/25/20 10:22 am Transcribed By: ANIYA Transcribed Date/Time: 01/25/20 10:20 am Exam Date Time Procedure Performing Provider Status 01/18/20 12:03 PM Chest Portable Herlinda Borja; Auth (Verified ) Notes:(Chest Portable) Reason For Exam: Tube PlacementRESULT: Chest Portable Chest Portable REASON: Tube Placement; Clinical Question(s): Tube Placement / Tube Placement COMPARISON: 01/18/2020 FINDINGS: LINES AND TUBES: Endotracheal tube ends 4.5 cm above the verito. Enteric tube tip and side-port project in the stomach. LUNGS AND PLEURA: Right lung and pleural space are clear. There is retrocardiac opacity and a small left pleural effusion. No pneumothorax. HEART, MEDIASTINUM AND SUNIL: Heart is normal in size. Normal mediastinal and hilar contour. BONES AND SOFT TISSUES: No acute abnormality. IMPRESSION: 1. Support structures as above. 2. Retrocardiac opacity compatible with small pleural effusion and left lower lobe atelectasis or pneumonia. WSN: [id number] Ordering Physician: Sarah Morrow Dictated By: Alan Nascimento MD Dictated Date/Time: 01/18/20 12:22 p Reviewed By: Alan Nascimento MD Signed By: Alan Nascimento MD Signed Date/Time: 01/18/20 12:22 pm Transcribed By: ANIYA Transcribed Date/Time: 01/18/20 12:21 pm Exam Date Time Procedure Performing Provider Status 01/18/20 1:09 AM Chest Portable Jose Shannon; Auth (Verified ) Notes:(Chest Portable) Reason For Exam: Tube PlacementRESULT: Chest Portable Examination: Portable chest performed on 01/18/2020 at 12:58 AM. History: Tube placement. Findings: A frontal view of the chest is compared to a prior study dated 01/16/2020. Since the prior study, an endotracheal tube has been placed in expected location. The cardiac silhouette is within normal limits for size. There is now dense consolidation within theleft lower lobe as well as within the left perihilar region. Volume loss in the left thorax has developed. The right lung is clear. The osseous structures are intact. IMPRESSION: Endotracheal tube as described. Airspace disease and volume loss within the left thorax which may represent a combination of infection and atelectasis. Clinical correlation is suggested. WSN: [id number] Ordering Physician: Janis Zeng Dictated By: Carlee Agarwal MD Dictated Date/Time: 01/18/20 8:33 am Reviewed By: Carlee Agarwal MD Signed By: Carlee Agarwal MD Signed Date/Time: 01/18/20 8:33 am Transcribed By: ANIYA Transcribed Date/Time: 01/18/20 8:31 am Exam Date Time Procedure Performing Provider Status 01/16/20 9:49 AM Chest Portable Arpit Palomares (Verified) Notes:(Chest Portable) Reason For Exam: Shortness of BreathRESULT: Chest Portable Chest Portable Reason: Shortness of Breath; Clinical Question(s): CHF COMPARISON: None. FINDINGS: Left lower lobe airspace disease IMPRESSION: Left lower lobe airspace disease consistent with pneumonia in the appropriate clinical setting. Follow-up is recommended to document resolution Discussed with Dr. Fuentes at 1038 hours 01/16/2020 WSN: [id number] Ordering Physician: Kirti Fuentes Dictated By: Tenzin Briones MD Dictated Date/Time: 01/16/20 10:38 a Reviewed By: Tenzin Briones MD Signed By: Tenzin Briones MD Signed Date/Time: 01/16/20 10:38 am Transcribed By: ANIYA Transcribed Date/Time: 01/16/20 10:35 am Vital Signs Most recent to oldest 1 2 3 [Reference Range]: Height 178 cm 178 cm 178 cm (02/09/20 4:00 AM) (02/09/20 12:43 AM) (02/08/20 12 :40 AM) Weight 86.5 kg 86.5 kg 86.5 kg (02/04/20 12:37 PM) (01/29/20 11:33 AM) (01/27/20 8:15 AM) Oxygen Saturation [94-100 98 % 100 % 100 % %] (02/09/20 1:44 PM) (02/09/20 7:24 AM) (02/09/20 4:0 0 AM) Pulse Rate [55-90 bpm] 78 bpm 71 bpm 69 bpm (02/09/20 1:44 PM) (02/09/20 7:24 AM) (02/09/20 4:0 0 AM) Body Mass Index 27.3 27.3 27.3 [18.5-24.99] *H* *H* *H* (01/16/20 7:00 PM) (01/16/20 2:46 PM) (01/16/20 2:35 PM) Blood Pressure 113/63 mm Hg 112/63 mm Hg 103/65 mm Hg [90-138/55-84 mm Hg] (02/09/20 1:44 PM) (02/09/20 7:24 AM) ( 0 4:00 AM) Respiratory Rate [16-30 18 br/min 20 br/min 18 br/mi n br/min] (02/09/20 1:44 PM) (02/09/20 7:24 AM) (02/09/20 4:0 0 AM) Temperature [96.8-100.4 97.3 DegF 97.1 DegF 98.2 Deg F DegF] (02/09/20 1:44 PM) (02/09/20 7:24 AM) (02/09/20 4:0 0 AM) Liters per Minute 0 L/min 0 L/min 0 L/min (02/08/20 8:00 AM) (02/07/20 5:07 PM) (02/07/20 11: 28 AM) Mode of Delivery (Oxygen) Room air Room air Room a ir (02/09/20 1:44 PM) (02/09/20 7:24 AM) (02/09/20 4:0 0 AM) Blood pressure sites Arm, left Arm, left Arm, right (02/09/20 1:44 PM) (02/09/20 7:24 AM) (02/09/20 4:0 0 AM) Temperature Route Temporal Temporal Oral (02/09/20 1:44 PM) (02/09/20 7:24 AM) (02/09/20 4:0 0 AM) Dry Weight 86.5 kg 86.5 kg 86.5 kg (01/16/20 7:00 PM) (01/16/20 2:46 PM) (01/16/20 2:35 PM) Mobility assistance Total assistance Total assistance Total assi stance (01/25/20 4:00 AM) (01/25/20 12:00 AM) (01/24/20 8:31 PM)
--- OUTSIDE RECORDS SUMMARY | 2022-03-12 20:58 | XMS_ITS | Continuity of Care Document ---
:1965 Author Organization [facility] Address [address] [place] [address]- Care Team Providers Name Role Phone Rickey Neal MD Primary Care Physician Encounter [facility] Date(s): 02/15/20 - 03/16/20 [facility] [address] [place] [id number] Allergies, Adverse Reactions, Alerts Substance Reaction Severity [...]
--- OUTSIDE RECORDS SUMMARY | 2022-03-12 20:58 | XMS_ITS | Continuity of Care Document ---
:1965 Author Organization [facility] Address [address] [place] [address]- Care Team Providers Name Role Phone Sanjeev Hatfield MD Primary Care Phys[id number] Date(s): 04/12/20 - 05/18/[address] [address] Attending Physician: Rosales De Paz MD Admitting Physician: Rosales De Paz MD Referring Physician: Rosales De Paz MD Allergies, Adverse Reactions, Alerts Substance Reaction Severity Status penicillin upset stomach Active Immunizations Not Given Vaccine Date Status Refusal Reason influenza virus vaccine, inactivated 02/25/20 Not Given Patient Refuses pneumococcal 23-valent vaccine 02/25/20 Not Given P atient Refuses Medications amantadine 100 mg oral capsule 100 mg, 1, capsule, By Mouth, 2 times a day, for 30 days, # 60 capsule, Refills 1, Tot. Refills 1, Acute 06/11/20 16:41:00 EDT, 04/12/20 16:41:00 EST, Route to Pharmacy Electronically, [facility]/pharmacy #[id number], Partial fill upon patient request if the presc... Start Date: 04/12/20 Stop Date: 06/11/20 Status: Orderedamantadine 100 mg oral tablet 1 tablet = 100 mg, By Mouth, 2 times a day, 0 Refills, Maintenance, 03/29/20 10:20:00 EST, Partial fill upon patient request if the prescription is for a schedule II opioid drug. Start Date: 03/29/20 Status: Orderedamantadine 50 mg/5 mL oral syrup 10 mL [...] II opioid drug. Start Date: 03/01/20 Status: Orderedcalcium carbonate 600 mg oral tablet 1 tablet = 600 mg, By Mouth, 2 times a day, # 60 tablet, 0 Refills, Maintenance, 04/12/20 16:45:00 EST, Tablet, [facility]pharm[facility] #[id number], Partial fill upon patient request if the prescription is for a schedule II opioid drug., saloni Marie, 03/29/20 9:56:00 EST,... Start Date: 04/12/20 Status: Orderedcalcium-vitamin D 600-400mg iu tabs calcium-vitamin D 600-400mg iu tabs, Refills 0, Maintenance, 03/29/20 10:19:00 EST, Supply Start Date: 03/29/20 Status: OrderedclonazePAM 0.5 mg oral tablet 1 tablet = 0.5 mg, By Mouth, 3 times a day, # 90 tablet, 5 Refills, Maintenance, 03/29/20 10:10:00 EST, Tablet, [id number], Partial fill upon patient request if the prescription is for a schedule II opioid drug., saloni Marie, 03/29/20 9:56:00 EST,... Start Date: 03/29/20 Stop Date: 09/25/20 Status: OrderedclonazePAM 0.5 mg oral tablet 1 tablet = 0.5 mg, By Mouth, 3 times a day, MassPAT checked, # 90 tablet, 1 Refills, Maintenance, 04/12/20 16:46:00 EST, Tablet, [id number], Partial fill upon patient request if the prescription is for a schedule II opioid drug., saloni Marie, 03/05... Start Date: 04/12/20 Status: Orderedlactulose 10 gm/15 ml oral syrup 30 mL = 20 Gm, By Mouth, Daily at bedtime, PRN Constipation, 0 Refills, Maintenance, 03/01/20 10:09:00 EST, Syrup, Partial fill upon patient request if the prescription is for a schedule II opioid drug. Start Date: 03/01/20 Status: OrderedlevETIRAcetam 500 mg oral tablet 3 tablet = 1,500 mg, By Mouth, 2 times a day, for 30 days, # 180 tablet, 5 Refills, Hard Stop 09/25/20 10:08:00 EDT, 03/29/20 10:08:00 EST, Tablet, Partial fill upon patient request if the prescriptionis for a schedule II opioid drug. Start Date: 03/29/20 Stop Date: 09/25/20 Status: OrderedlevETIRAcetam 500 mg oral tablet 3 tablet = 1,500 mg, By Mouth, 2 times a day, # 180 tablet, 5 Refills, Maintenance, 09/25/20 10:08:00 EDT, Tablet, [facility]/pharmacy #[id number], Partial fill upon patient request if the prescription is for a schedule II opioid drug., 178saloni, 03/29/20 9:56:00 E... Start Date: 09/25/20 Stop Date: 03/24/21 Status: Orderedlevothyroxine 125 mcg (0.125 mg) oral capsule 2 capsule = 250 mcg, By Mouth, Daily, # 60 capsule, 0 Refills, Maintenance, 04/20/20 10:20:00 EST, Capsule, [facility]/pharmacy #[id number], Partial fill upon patient request if the prescription is for a schedule II opioid drug., 178 cm, 03/29/20 9:56:00 EST, Hei... Start Date: 04/20/20 Status: Orderedlevothyroxine 125 mcg (0.125 mg) oral [...] Orderedpantoprazole 40 mg oral delayed release tablet 1 tablet = 40 mg, By Mouth, Daily, # 30 tablet, 0 Refills, Maintenance, 04/12/20 16:43:00 EST, EC Tablet, 178, cm, 03/29/20 9:56:00 EST, Height, 86.5, kg, 02/24/20 18:52:00 EST, Dry Weight Start Date: 04/12/20 Status: OrderedpredniSONE 10 mg oral tablet 1 [...]
--- OUTSIDE RECORDS SUMMARY | 2022-03-12 20:58 | XMS_ITS | Continuity of Care Document ---
:1965 Author Organization [facility] Address Unavailable , Care Team Providers Name Role Phone Not on Staff, PCP Primary Care Physician Unavailable [place] [facility] [place](s): 12/07/20 - 01/13/21 [facility] Attending Physician: Diamond Gómez MD Allergies, Adverse Reactions, Alerts No Known Medication Allergies Medications Colace sodium 100 mg oral capsule 100 mg, 1, capsule, By Mouth, 2 times a day, Refills 0, Maintenance, 12/21/20 13:11:00 EDT, Partial fill upon patient request if the prescription is for a schedule II opioid drug. Start Date: 12/21/20 Status: Orderedcyproheptadine 4 mg oral tablet 8 mg, 2, tablet, By Mouth, Daily, # 60 tablet, Refills 0, Tot. Refills 0, Maintenance, 12/21/20 13:05:00 EDT, Route to Pharmacy Electronically, [facility]/pharmacy #[id number], Partial fill upon patient request if the prescription is for a schedule II opioid drug.... Start Date: 12/21/20 Status: OrderedDepakote ER 250 mg oral tablet, extended release 1 tablet = 250 mg, By Mouth, Daily, Take 2 of the 500mg tablets plus 1 of the 250mg tablets in the morning, totalling 1250mg. - do not crush or chew - with food, # 30 tablet, 0 Refills, Maintenance, 12/22/20 10:18:00 EDT, [facility]/pharmacy #[id number], Partial... Start Date: 12/22/20 Status: OrderedDepakote ER 500 mg oral tablet, extended release See Instructions, Take 2 of the 500mg tablets plus 1 of the 250mg tablets in the morning, totalling 1250mg. - do not crush or chew - with food, # 60 tablet, 0 Refills, Maintenance, 12/22/20 10:14:00 EDT, [facility]/pharmacy #[id number], Partial fill upon patient... Start Date: 12/22/20 Status: Orderedlevothyroxine 175 mcg (0.175 mg) oral tablet = 175 mcg, By Mouth, Daily, 0 Refills, Maintenance, 12/21/20 13:10:00 EDT, Tablet, Partial fill uponpatient request if the prescription is for a schedule II opioid drug. Start Date: 12/21/20 Status: Orderedmirtazapine 15 mg oral tablet 2 tablet = 30 mg, By Mouth, Daily at bedtime, # 60 tablet, 0 Refills, Maintenance, 12/21/20 13:10:00EDT, Tablet, [facility]/pharmacy #[id number], Partial fill upon patient request if the prescription is for a schedule II opioid drug., 177.8, cm, 12/21/20 12:11:00... Start Date: 12/21/20 Status: OrderedMultivit Therapeutic/Minerals Tablet 1 tablet, By Mouth, Daily, 0 Refills, Maintenance, 12/21/20 13:10:00 EDT, Tablet, Partial fill upon patient request if the prescription is for a schedule II opioid drug. Start Date: 12/21/20 Status: Orderedthiamine 100 mg oral tablet 100 mg, 1, tablet, By Mouth, Daily, Refills 0, Maintenance, 12/21/20 13:10:00 EDT, Partial fill uponpatient request if the prescription is for a schedule II opioid drug. Start Date: 12/21/20 Status: Ordered Social History Social History Type Response Smoking Status Former smoker, quit more quoc n 30 days ago entered on: 12/12/20 Sex
--- OUTSIDE RECORDS SUMMARY | 2022-03-12 20:58 | XMS_ITS | Continuity of Care Document ---
:1965 Author Organization [facility] Address [address] [place] [address]- Care Team Providers Name Role Phone Sanjeev Hatfield MD Primary Care Physician Encounter [facility] [place] [facility]CT R [id number] Date(s): 04/01/20 - 05/07/[address] [address] Attending Physician: Rosales De Paz MD Admitting [...] 04/12/20 16:41:00 EST, Route to Pharmacy Electronically, [facility]/pharmacy #[id number], Partial fill upon patient request if the [...] 5 Refills, Maintenance, 09/25/20 10:08:00 EDT, Tablet, [facility]/pharmacy #[id number], Partial fill upon patient request if the prescription is for a schedule II opioid drug., 178saloni, 03/29/20 9:56:00 E... Start Date: 09/25/20 Stop Date: 03/24/21 Status: Orderedlevothyroxine 125 mcg (0.125 mg) oral capsule 2 capsule = 250 mcg, By Mouth, Daily, # 60 capsule, 0 Refills, Maintenance, 04/20/20 10:20:00 EST, Capsule, [facility]/pharmacy #[id number], Partial fill upon patient request if [...]
--- OUTSIDE RECORDS SUMMARY | 2022-03-12 20:58 | XMS_ITS | Continuity of Care Document ---
:1965 Author Organization [facility] Address [address], [address]rd Floor, [address] [place] [address]- Care Team Providers Name Role Phone Alysia FIELDS, Sanjeev Burt Primary Care Physician Encounter [facility] [place] Date(s): 04/12/20 - 05/12/20 [facility] [address], [address], [address] [place] [address]- Allergies, Adverse Reactions, Alerts Substance Reaction Severity [...] 04/12/20 16:41:00 EST, Route to Pharmacy Electronically, [facility]/pharmacy #[id number], Partial fill upon patient request if the [...] 0 Refills, Maintenance, 04/12/20 16:45:00 EST, Tablet, [facility]/pharmacy #[id number], Partial fill upon patient request if the prescription is for a schedule II opioid drug., 178, cm, 03/29/20 9:56:00 EST,... Start Date: 04/12/20 Status: Orderedcalcium-vitamin D 600-400mg iu tabs calcium-vitamin D 600-400mg iu tabs, Refills 0, Maintenance, 03/29/20 10:19:00 EST, Supply Start Date: 03/29/20 Status: OrderedclonazePAM 0.5 mg oral tablet 1 tablet = 0.5 mg, By Mouth, 3 times a day, # 90 tablet, 5 Refills, Maintenance, 03/29/20 10:10:00 EST, Tablet, [facility]/pharmacy #[id number], Partial fill upon patient request if the prescription is for a schedule II opioid drug., 178, cm, 03/29/20 9:56:00 EST,... Start Date: 03/29/20 Stop Date: 09/25/20 Status: OrderedclonazePAM 0.5 mg oral tablet 1 tablet = 0.5 mg, By Mouth, 3 times a day, MassPAT checked, # 90 tablet, 1 Refills, Maintenance, 04/12/20 16:46:00 EST, Tablet, [facility]/pharmacy #[id number], Partial fill upon patient request if the prescription is for a schedule II opioid drug., 178, cm, 03/05... Start Date: 04/12/20 Status: Orderedlactulose 10 [...] 5 Refills, Maintenance, 09/25/20 10:08:00 EDT, Tablet, [facility]/pharmacy #[id number], Partial fill upon patient request if the prescription is for a schedule II opioid drug., saloni Marie, 03/29/20 9:56:00 E... Start Date: 09/25/20 Stop Date: 03/24/21 Status: Orderedlevothyroxine 125 mcg (0.125 mg) oral capsule 2 capsule = 250 mcg, By Mouth, Daily, # 60 capsule, 0 Refills, Maintenance, 04/20/20 10:20:00 EST, Capsule, [facility]/pharmacy #[id number], Partial fill upon patient request if the prescription is for a schedule II opioid drug., saloni Marie, 03/29/20 9:56:00 EST, Hei... Start Date: 04/20/20 [...]
--- OUTSIDE RECORDS SUMMARY | 2022-03-12 20:58 | XMS_ITS | Continuity of Care Document ---
:1965 Author Organization [facility] Address [address] [place] [address]- Care Team Providers Name Role Phone Sanjeev Hatfield MD Primary Care Physician Encounter [facility] [place] Date(s): 02/22/20 - 03/30/[address] [address] Attending Physician: Rosales De Paz MD Admitting Physician: Rosales De Paz MD Referring Physician: Rosales De Paz MD Allergies, Adverse Reactions, Alerts Substance Reaction Severity Status penicillin upset stomach Active Immunizations Not Given Vaccine Date Status Refusal Reason influenza virus vaccine, inactivated 02/25/20 Not Given Patient Refuses pneumococcal 23-valent vaccine 02/25/20 Not Given P atient Refuses Medications amantadine 100 mg oral tablet 1 tablet = [...] II opioid drug. Start Date: 03/01/20 Status: Orderedcalcium-vitamin D 600-400mg iu tabs calcium-vitamin D 600-400mg iu tabs, Refills 0, Maintenance, 03/29/20 10:19:00 EST, Supply Start Date: 03/29/20 Status: OrderedclonazePAM 0.5 mg oral tablet 1 tablet = 0.5 mg, By Mouth, 3 times a day, # 90 tablet, 5 Refills, Maintenance, 03/29/20 10:10:00 EST, Tablet, [facility]/pharmacy #[id number], Partial fill upon patient request if the prescription is for a schedule II opioid drug., 178saloni, 03/29/20 9:56:00 EST,... Start Date: 03/29/20 Stop Date: 09/25/20 Status: Orderedlactulose 10 gm/15 ml oral syrup [...] 5 Refills, Maintenance, 09/25/20 10:08:00 EDT, Tablet, [facility]/pharmacy #[id number], Partial fill upon patient request if the prescription is for a schedule II opioid drug., 178, saloni, 03/29/20 9:56:00 E... Start Date: 09/25/20 Stop [...]
--- OUTSIDE RECORDS SUMMARY | 2022-03-12 20:58 | XMS_ITS | Continuity of Care Document ---
:1965 Author Organization [facility] Address [address] [place] [address]- Care Team Providers Name Role Phone Alysia FIELDS, Sanjeev Burt Primary Care Physician [place] [facility] [place]s): 03/28/21 - 04/27/21 [facility] [address] [place], [place] [address] Attending Physician: Vickie Gary Admitting Physician: Vickie Gary Referring Physician: AdmtrVickie Allergies, Adverse Reactions, Alerts Substance Reaction Severity [...] OrderedlevETIRAcetam 500 mg oral tablet See Instructions, TAKE 3 TABLETS BY MOUTH TWICE A DAY, # 180 tablet, 5 Refills, 03/02/21 16:27:00 EST, 178, cm, 12/28/20 8:16:00 EDT, Height, 64.5, kg, 12/28/20 8:16:00 EDT, Dry Weight Start Date: 03/02/21 Status: Orderedlevothyroxine 0.2 mg oral tablet 1 tablet = 200 mcg, By Mouth, Daily, TAKE 1 TABLET BY MOUTH EVERY DAY, # 30 tablet, 11 Refills, Maintenance, 03/28/21 9:14:00 EST, Tablet, [id number], Partial fill upon patient request if the prescription is for a schedule II opioid drug., 178... Start Date: 03/28/21 Stop Date: 03/23/22 Status: Orderedmirtazapine 15 mg oral tablet 2 [...]
--- OUTSIDE RECORDS SUMMARY | 2022-03-12 20:58 | XMS_ITS | Continuity of Care Document ---
:1965 Author Organization [facility] Address [address] [place] [address]- Care Team Providers Name Role Phone Sanjeev Hatfield MD Primary Care Physician Encounter [facility] [place] [place] [id number] Date(s): 10/18/20 - 11/23/[address] [address] Attending Physician: Rosales De [...] Refuses Medications amantadine 100 mg oral capsule 1, capsule, By Mouth, 2 times a day, # 60 capsule, Refills 5, Tot. Refills 0, Acute, 08/10/20 12:46:00 EDT, Route to Pharmacy Electronically, [id number], 178, cm, 07/08/20 10:59:00 EDT, Height, 86.5, kg, 02/24/20 18:52:00 EST, Dry Weight Start Date: 08/10/20 Status: Orderedcalcium carbonate 600 mg oral tablet 1 tablet = 600 mg, By Mouth, 2 times a day, # 60 tablet, 0 Refills, Maintenance, 04/12/20 16:45:00 EST, Tablet, [facility]/pharmacy #[id number], Partial fill upon patient request if the prescription is for a schedule II opioid drug., 178, cm, 03/29/20 9:56:00 EST,... Start Date: 04/12/20 Status: Orderedcalcium-vitamin D 600-400mg iu tabs calcium-vitamin D 600-400mg iu tabs, Refills 0, Maintenance, 03/29/20 10:19:00 EST, Supply Start Date: 03/29/20 Status: OrderedCeleXA 20 mg oral tablet 20 mg, 1, tablet, By Mouth, Daily, # 30 tablet, Refills 0, Tot. Refills 0, Maintenance, 10/25/20 9:42:00 EDT, Route to Pharmacy Electronically, [facility]/pharmacy #[id number], Partial fill upon patient request if the prescription is for a schedule II opioid drug.... Start Date: 10/25/20 Status: OrderedlevETIRAcetam 500 mg oral tablet 3 tablet, By Mouth, 2 times a day, # 180 tablet, 5 Refills, Maintenance, 08/12/20 14:16:00 EDT, [id number], 178, cm, 07/08/20 10:59:00 EDT, Height, 86.5, kg, 02/24/20 18:52:00 EST, Dry Weight Start Date: 08/12/20 Status: Orderedlevothyroxine 175 mcg (0.175 mg) oral tablet 1 tablet = 175 mcg, By Mouth, Daily, Tae on empty stomach, # 90 tablet, 0 Refills, Maintenance, 11/17/20 16:25:00 EDT, Tablet, [facility]/pharmacy #[id number], Partial fill upon patient request if the prescription is for a schedule II opioid drug., 179, cm, 10/31/... Start Date: 11/17/20 Status: Orderedpantoprazole 40 mg oral delayed release tablet 1 tablet = 40 mg, By Mouth, Daily, # 30 tablet, 0 Refills, Maintenance, 04/12/20 16:43:00 EST, EC Tablet, 178, cm, 03/29/20 9:56:00 EST, Height, 86.5, kg, 02/24/20 18:52:00 EST, Dry Weight Start Date: 04/12/20 Status: Ordered Problem List Condition Effective Dates Status Health Status Informant CAP (community acquired Active pneumonia)(Confirmed)
--- OUTSIDE RECORDS SUMMARY | 2022-03-12 20:58 | XMS_ITS | Continuity of Care Document ---
:1965 Author Organization [facility] Address Unavailable , Care Team Providers Name Role Phone Sanjeev Hatfield MD [id number] 09[facility] 10[facility]19/20 [facility] Allergies, Adverse Reactions, Alerts Substance Reaction Severity [...] 08/10/20 12:46:00 EDT, Route to Pharmacy Electronically, [id number], 178, cm, 07/08/20 10:59:00 EDT, Height, 86.5, kg, 02/24/20 18:52:00 EST, Dry Weight Start Date: 08/10/20 Status: Orderedbisacodyl 10 mg rectal suppository 1 [...] 0 Refills, Maintenance, 04/12/20 16:45:00 EST, Tablet, [facility]/pharmacy #[id number], Partial fill upon patient request if the prescription is for a schedule II opioid drug., 178, cm, 03/29/20 9:56:00 EST,... Start Date: 04/12/20 Status: Orderedcalcium-vitamin D 600-400mg iu tabs calcium-vitamin D 600-400mg iu tabs, Refills 0, Maintenance, 03/29/20 10:19:00 EST, Supply Start Date: 03/29/20 Status: OrderedclonazePAM 0.5 mg oral tablet 1 tablet, By Mouth, 3 times a day, Masspat checked., # 90 tablet, 0 Refills, Maintenance, 10/10/20 14:56:00 EDT, [facility]/pharmacy #[id number], 178, cm, 07/08/20 10:59:00 EDT, Height, 86.5, kg, 02/24/20 18:52:00 EST, Dry Weight Start Date: 10/10/20 Status: Orderedlactulose 10 gm/15 ml oral syrup [...] Refills, Maintenance, 08/12/20 14:16:00 EDT, [facility], 178, cm, 07/08/20 10:59:00 EDT, Height, 86.5, kg, 02/24/20 18:52:00 EST, Dry Weight Start Date: 08/12/20 Status: Orderedlevothyroxine 0.2 mg oral tablet 1 tablet, By Mouth, Daily, # 90 tablet, 0 Refills, Maintenance, 08/29/20 8:43:00 EDT, [facility], 178, cm, 07/08/20 10:59:00 EDT, Height, 86.5, kg, 02/24/20 18:52:00 EST, Dry Weight Start Date: 08/29/20 Status: OrderedMaalox Plus Liquid 30 mL, By [...]
--- OUTSIDE RECORDS SUMMARY | 2022-03-12 20:58 | XMS_ITS | Continuity of Care Document ---
:1965 Author Organization [facility] Address [address] [place] [address]- Care Team Providers Name Role Phone Sanjeev Hatfield MD Primary Care Physician Encounter [facility] [place] Date(s): 09/07/20 - 01/01/21 [facility] [address] [place], [place] [address] Attending Physician: Hailey Silver MD Admitting Physician: Hailey Silver MD Referring Physician: Sanjeev Hatfield MD Allergies, Adverse Reactions, Alerts Substance Reaction [...]
--- OUTSIDE RECORDS SUMMARY | 2022-03-12 20:58 | XMS_ITS | Continuity of Care Document ---
:1965 Author Organization [facility] Address Unavailable , Care Team Providers Name Role Phone Not on Staff, PCP Primary Care Physician Unavailable Encounter [facility] [place] Date(s): 12/14/20 - 01/13/21 [facility] Attending Physician: Vickie Gary Admitting Physician: Vickie Gary Referring Physician: Vickie Gary Allergies, Adverse Reactions, Alerts No Known Medication [...] 12/21/20 13:05:00 EDT, Route to Pharmacy Electronically, [facility]/pharmacy #[id number], Partial fill upon patient request [...] tablet, 0 Refills, Maintenance, 12/22/20 10:18:00 EDT, [facility]/pharmacy #[id number], Partial... Start Date: 12/22/20 Status: OrderedDepakote ER 500 mg oral tablet, extended release See Instructions, Take 2 of the 500mg tablets plus 1 of the 250mg tablets in the morning, totalling 1250mg. - do not crush or chew - with food, # 60 tablet, 0 Refills, Maintenance, 12/22/20 10:14:00 EDT, [facility]/pharmacy #[id number], Partial fill upon patient... Start [...] tablet, 0 Refills, Maintenance, 12/21/20 13:10:00EDT, Tablet, [facility]/pharmacy #[id number], Partial fill upon patient request [...]
--- OUTSIDE RECORDS SUMMARY | 2022-03-12 20:58 | XMS_ITS | Continuity of Care Document ---
:1965 Author Organization [facility] Address Unavailable , Care Team Providers Name Role Phone Sanjeev Hatfield MD Primary Care Physician [id number] Date(s): 03/02/21 - 04/01/21 [facility] Allergies, Adverse Reactions, Alerts Substance [...] 11 Refills, Maintenance, 03/28/21 9:14:00 EST, Tablet, [facility]/pharmacy #[id number], Partial fill upon patient request if [...]
--- OUTSIDE RECORDS SUMMARY | 2022-03-12 20:58 | XMS_ITS | Continuity of Care Document ---
:1965 Author Organization [facility] Address [address] [place] [address]- Care Team Providers Name Role Phone Alysia FIELDS, Sanjeev Burt Primary Care Physician Encounter [facility] [place] Date(s): 06/27/20 - 07/27/20 [facility] [address] [place] [address] Allergies, Adverse Reactions, Alerts Substance Reaction Severity Status penicillin upset stomach Active Immunizations Not Given Vaccine Date Status Refusal Reason influenza virus vaccine, inactivated 02/25/20 Not Given Patient Refuses pneumococcal 23-valent vaccine 02/25/20 Not Given P atient Refuses Medications amantadine 100 mg oral capsule 1, capsule, By Mouth, 2 times a day, # 60 capsule, Refills 1, Tot. Refills 0, Acute, 06/06/20 15:23:00 EDT, Route to Pharmacy Electronically, [facility], 178, cm, 03/29/20 9:56:00 EST, Height, 86.5, kg, 02/24/20 18:52:00 EST, Dry Weight Start Date: 06/06/20 Status: Orderedbisacodyl 10 mg rectal suppository 1 [...] 0 Refills, Maintenance, 04/12/20 16:45:00 EST, Tablet, [facility]/pharmacy #[id number], Partial fill upon patient request if [...] 5 Refills, Maintenance, 03/29/20 10:10:00 EST, Tablet, [facility]/pharmacy #[id number], Partial fill upon patient request if the prescription is for a schedule II opioid drug., 178, cm, 03/29/20 9:56:00 EST,... Start Date: 03/29/20 Stop Date: 09/25/20 Status: OrderedclonazePAM 0.5 mg oral tablet 1 tablet = 0.5 mg, By Mouth, 3 times a day, MassPAT checked, # 90 tablet, 1 Refills, Maintenance, 04/12/20 16:46:00 EST, Tablet, [facility]/pharmacy #[id number], Partial fill upon patient request if [...] # 180 tablet, 5 Refills, Hard Stop 09/20/21 10:08:00 EDT, 03/24/21 10:08:00 EST, Tablet, [id number], Partial fill upon patient requestif the prescription is for a schedule II opioid d... Start Date: 03/24/21 Stop Date: 09/20/21 Status: OrderedlevETIRAcetam 500 mg oral tablet, extended release 3 tablet = 1,500 mg, By Mouth, 2 times a day, # 180 tablet, 5 Refills, Maintenance, 07/08/20 11:12:00 EDT, ER Tablet, [facility]/pharmacy #[id number], Partial fill upon patient request if the prescription is for a schedule II opioid drug., 178, cm, 07/08/20 10:59:... Start Date: 07/08/20 Stop Date: 01/04/21 Status: Orderedlevothyroxine 125 mcg (0.125 mg) oral capsule 2 capsule = 250 mcg, By Mouth, Daily, # 60 capsule, 0 Refills, Maintenance, 04/20/20 10:20:00 EST, Capsule, [facility]/pharmacy #[id number], Partial fill upon patient request if the prescription is for a schedule II opioid drug., 178, cm, 03/29/20 9:56:00 EST, Hei... Start Date: [...]
--- OUTSIDE RECORDS SUMMARY | 2022-03-12 20:58 | XMS_ITS | Continuity of Care Document ---
:1965 Author Organization [facility] Address [address] [place] [address]- Care Team Providers Name Role Phone Alysia FIELDS, Sanjeev Burt Primary Care Physician Encounter [facility] [place] Date(s): 04/18/20 - 05/18/20 [facility] [address] [place] [id number] Allergies, Adverse Reactions, Alerts Substance Reaction Severity [...] 04/12/20 16:41:00 EST, Route to Pharmacy Electronically, [facility]/pharmacy #[id number], Partial fill upon patient request if the [...] 5 Refills, Maintenance, 03/29/20 10:10:00 EST, Tablet, [facility] 1 Refills, Maintenance, 04/12/20 16:46:00 EST, Tablet, [facility] 5 Refills, Maintenance, 09/25/20 10:08:00 EDT, Tablet, [facility]/pharmacy #[id number], Partial fill upon patient request if the prescription is for a schedule II opioid drug., saloni Marie, 03/29/20 9:56:00 E... Start Date: 09/25/20 Stop Date: 03/24/21 Status: Orderedlevothyroxine 125 mcg (0.125 mg) oral capsule 2 capsule = 250 mcg, By Mouth, Daily, # 60 capsule, 0 Refills, Maintenance, 04/20/20 10:20:00 EST, Capsule, [facility]/pharmacy #[id number], Partial fill upon patient request if the prescription is for a schedule II opioid drug., 178saloni, 03/29/20 9:56:00 EST, Hei... Start Date: 04/20/20 [...]
--- OUTSIDE RECORDS SUMMARY | 2022-03-12 20:58 | XMS_ITS | Continuity of Care Document ---
:1965 Author Organization [facility] Address [address] [place] [address]- Care Team Providers Name Role Phone Sanjeev Hatfield MD Primary Care Physician [place] [facility] [place]/17/20 - 10/18/[address] [address]- Encounter Diagnosis Intentional clonazepam overdose (Final) - 10/17/20 Discharge Disposition: Transfer to Psych Facility Attending Physician: Tio Valdez DO Admitting Physician: Tio Valdez DO Referring Physician: Not on Staff, Referring MD [...] 08/10/20 12:46:00 EDT, Route to Pharmacy Electronically, [id number], 178, cm, 07/08/20 10:59:00 EDT, Height, 86.5, [...] 0 Refills, Maintenance, 04/12/20 16:45:00 EST, Tablet, [facility]/pharmacy #[id number], Partial fill upon patient request [...] tablet, 0 Refills, Maintenance, 10/10/20 14:56:00 EDT, [facility]/pharmacy #[id number], 178, cm, 07/08/20 10:59:00 EDT, Height, [...] Refills, Maintenance, 08/12/20 14:16:00 EDT, [facility], 178, cm, 07/08/20 10:59:00 EDT, Height, 86.5, kg, 02/24/20 18:52:00 EST, Dry Weight Start Date: 08/12/20 Status: Orderedlevothyroxine 0.2 mg oral tablet 1 tablet, By Mouth, Daily, # 90 tablet, 0 Refills, Maintenance, 08/29/20 8:43:00 EDT, [facility], 178, cm, 07/08/20 10:59:00 EDT, Height, 86.5, [...] Status Informant CAP (community acquired Active pneumonia)(Confirmed) Vital Signs Most recent to oldest 1 2 3 [Reference Range]: Height 178 cm (10/17/20 12:30 PM) Weight 70 kg (10/17/20 12:30 PM) Oxygen Saturation [94-100 100 % 98 % 98 % %] (10/18/20 7:38 AM) (10/18/20 5:25 AM) (10/18/20 3:2 7 AM) Pulse Rate [55-90 bpm] 71 bpm 62 bpm 55 bpm (10/18/20 7:38 AM) (10/18/20 5:25 AM) (10/18/20 3:2 7 AM) Respiratory Rate [16-30 15 br/min 16 br/min 16 br/mi n br/min] *L* (10/18/20 5:25 AM) (10/18/20 3:27 AM) (10/18/20 7:38 AM) Temperature [96.8-100.4 97.8 DegF DegF] (10/18/20 1:37 AM) Mode of Delivery (Oxygen) Room air Room air Room a ir (10/18/20 7:38 AM) (10/18/20 5:25 AM) (10/18/20 3:2 7 AM) Blood pressure sites Arm, right Arm, right (10/17/20 2:02 PM) (10/17/20 12:30 PM) Temperature Route Axillary Oral (10/18/20 1:37 AM) (10/17/20 12:30 PM) Dry Weight 70 kg (10/17/20 12:30 PM) Weight Obtained Via Patient/family stated (10/17/20 12:30 PM) Dry Weight Obtained Via Patient/family stated (10/17/20 12:30 PM)
--- OUTSIDE RECORDS SUMMARY | 2022-03-12 20:58 | XMS_ITS | Continuity of Care Document ---
:1965 Author Organization [facility] and D tauruszander Address [address] [place] [address]- Care Team Providers Name Role Phone Sanjeev Hatfield MD Primary Care Physician En[place] [facility] [place](s[place] 12/02/20 - 01/01/21 [facility] [address] [place], [place] [address] Attending Physician: Vickie Gary Admitting Physician: Vickie Gary Referring Physician: trVickie Allergies, Adverse Reactions, Alerts Substance Reaction Severity [...]
--- OUTSIDE RECORDS SUMMARY | 2022-03-12 20:58 | XMS_ITS | Continuity of Care Document ---
:1965 Author Organization [facility] Endocrinology and D chris Address [address] [place] [address]- Care Team Providers Name Role Phone Sanjeev Hatfield MD Primary Care Physician [id number] Date(s): 09/03/20 - 01/01/21 [facility] and Diabetes [address] [place] [address]- Attending Physician: Alesia Munson MD Admitting Physician: Alesia Munson MD Referring Physician: Sanjeev Hatfield MD Allergies, [...]
--- OUTSIDE RECORDS SUMMARY | 2022-03-12 20:58 | XMS_ITS | Continuity of Care Document ---
:1965 Author Organization [facility] Address [address] [place] [address]- Care Team Providers Name Role Phone Sanjeev Hatfield MD Primary Care Physician [place] [facility] [place] - 11/13/[address] [address] Attending Physician: Rosales De Paz MD Admitting [...] 08/10/20 12:46:00 EDT, Route to Pharmacy Electronically, [facility] STORE 98344, 178, cm, 07/08/20 10:59:00 EDT, Height, 86.5, kg, 02/24/20 18:52:00 EST, Dry Weight Start Date: 08/10/20 Status: Orderedcalcium carbonate 600 mg oral tablet 1 tablet = 600 mg, By Mouth, 2 times a day, # 60 tablet, 0 Refills, Maintenance, 04/12/20 16:45:00 EST, Tablet, [facility]/pharmacy #[id number], Partial fill upon patient request if the [...] 10/25/20 9:42:00 EDT, Route to Pharmacy Electronically, [facility]/pharmacy #[id number], Partial fill upon patient request if the prescription is for a schedule II opioid drug.... Start Date: 10/25/20 Status: OrderedlevETIRAcetam 500 mg oral tablet 3 tablet, By Mouth, 2 times a day, # 180 tablet, 5 Refills, Maintenance, 08/12/20 14:16:00 EDT, [facility], 178, cm, 07/08/20 10:59:00 EDT, Height, 86.5, kg, 02/24/20 18:52:00 EST, Dry Weight Start Date: 08/12/20 Status: Orderedlevothyroxine 0.2 mg oral tablet 1 tablet, By Mouth, Daily, # 90 tablet, 0 Refills, Maintenance, 08/29/20 8:43:00 EDT, [facility], 178, cm, 07/08/20 10:59:00 EDT, Height, 86.5, kg, 02/24/20 18:52:00 EST, Dry Weight Start Date: 08/29/20 Status: Orderedpantoprazole 40 mg oral delayed release [...]
--- OUTSIDE RECORDS SUMMARY | 2022-03-12 20:58 | XMS_ITS | Continuity of Care Document ---
:1965 Author Organization [facility] Address [address] [place] [address]- Care Team Providers Name Role Phone Sanjeev Hatfield MD Primary Care Physician [place] [facility] [id number] Date(s): 10/19/20 - 11/24/[address] [address] Attending Physician: Rosales De Paz MD [...] 08/10/20 12:46:00 EDT, Route to Pharmacy Electronically, [facility] STORE 49516, 178, cm, 07/08/20 10:59:00 EDT, Height, 86.5, kg, 02/24/20 18:52:00 EST, Dry Weight Start Date: 08/10/20 Status: Orderedcalcium carbonate 600 mg oral tablet 1 tablet = 600 mg, By Mouth, 2 times a day, # 60 tablet, 0 Refills, Maintenance, 04/12/20 16:45:00 EST, Tablet, [facility]/pharmacy #[id number], Partial fill upon patient request if the [...] 10/25/20 9:42:00 EDT, Route to Pharmacy Electronically, [facility]/pharmacy #[id number], Partial fill upon patient request if the prescription is for a schedule II opioid drug.... Start Date: 10/25/20 Status: OrderedlevETIRAcetam 500 mg oral tablet 3 tablet, By Mouth, 2 times a day, # 180 tablet, 5 Refills, Maintenance, 08/12/20 14:16:00 EDT, [facility], 178, cm, 07/08/20 10:59:00 EDT, Height, 86.5, kg, 02/24/20 18:52:00 EST, Dry Weight Start Date: 08/12/20 Status: Orderedlevothyroxine 175 mcg (0.175 mg) oral tablet 1 tablet = 175 mcg, By Mouth, Daily, Tae on empty stomach, # 90 tablet, 0 Refills, Maintenance, 11/17/20 16:25:00 EDT, Tablet, [facility]/pharmacy #[id number], Partial fill upon patient request if [...]
--- OUTSIDE RECORDS SUMMARY | 2022-03-12 20:58 | XMS_ITS | Continuity of Care Document ---
:1965 Author Organization [facility] Address [address] [facility], 3rd Floor, [address] [place] [address]- Care Team Providers Name Role Phone Sanjeev Hatfield MD Primary Care Physician [id number] Date(s): 04/06/20 - 07/06/20 [facility] [address] [place], 3rd Floor, [address] [place] [id number] Attending Physician: Rosales De Paz MD [...] 06/06/20 15:23:00 EDT, Route to Pharmacy Electronically, [facility] 38937, 178, cm, 03/29/20 9:56:00 EST, Height, 86.5, [...] 0 Refills, Maintenance, 04/12/20 16:45:00 EST, Tablet, [facility]/pharmacy #[id number], Partial fill upon patient request [...] # 180 tablet, 5 Refills, Hard Stop 03/24/21 10:08:00 EST, 09/25/20 10:08:00 EDT, Tablet, [id number], Partial fill upon patient requestif the prescription is for a schedule II opioid d... Start Date: 09/25/20 Stop Date: 03/24/21 Status: OrderedlevETIRAcetam 500 mg oral tablet 3 tablet = 1,500 mg, By Mouth, 2 times a day, # 180 tablet, 5 Refills, Maintenance, 03/24/21 10:08:00 EST, Tablet, [facility]/pharmacy #[id number], Partial fill upon patient request if the prescription is for a schedule II opioid drug., 178, cm, 03/29/20 9:56:00 E... Start Date: 03/24/21 Stop Date: 09/20/21 Status: Orderedlevothyroxine 125 mcg (0.125 mg) oral capsule 2 capsule = 250 mcg, By Mouth, Daily, # 60 capsule, 0 Refills, Maintenance, 04/20/20 10:20:00 EST, Capsule, [facility]/pharmacy #[id number], Partial fill upon patient request [...]
--- OUTSIDE RECORDS SUMMARY | 2022-03-12 20:58 | XMS_ITS | Continuity of Care Document ---
:1965 Author Organization [facility] Address [address] [place], 3rd Floor, [address] [place] [address]- Care Team Providers Name Role Phone Val FIELDS, Rickey Felton Primary Care Physician En[place] [facility] [place] Date(s): 02/15/20 - 03/16/20 [facility] [address], [address], [address] [place] [id number] Allergies, Adverse Reactions, Alerts Substance Reaction [...]
--- OUTSIDE RECORDS SUMMARY | 2022-03-12 20:58 | XMS_ITS | Continuity of Care Document ---
:1965 Author Organization [facility] Endocrinology and D t[facility]zander Address [address] [place] [address]- Care Team Providers Name Role Phone Sanjeev Hatfield MD Primary Care Physician Encounter [facility] [place] Date(s): 02/23/20 - 06/18/20 [facility] Endocrinology and Diabetes [address] [place] [id number] Attending Physician: Alesia Munson MD Admitting Physician: Alesia Munson MD Referring Physician: Not on Staff, Referring [...] 06/06/20 15:23:00 EDT, Route to Pharmacy Electronically, [facility] 813[facility], 178, cm, 03/29/20 9:56:00 EST, Height, 86.5, [...] Refills, Maintenance, 04/12/20 16:45:00 EST, Tablet, [facility]/pharmacy #[id number], Partial fill upon patient request [...] Refills, Maintenance, 04/12/20 16:46:00 EST, Tablet, [facility]/pharmacy #[id number], Partial fill upon patient request [...] 5 Refills, Maintenance, 03/24/21 10:08:00 EST, Tablet, [facility]/pharmacy #[id number], Partial fill upon patient request if the prescription is for a schedule II opioid drug., 178, cm, 03/29/20 9:56:00 E... Start Date: 03/24/21 Stop Date: 09/20/21 Status: Orderedlevothyroxine 125 mcg (0.125 mg) oral capsule 2 capsule = 250 mcg, By Mouth, Daily, # 60 capsule, 0 Refills, Maintenance, 04/20/20 10:20:00 EST, Capsule, [facility]/pharmacy #[id number], Partial fill upon patient request [...]
--- OUTSIDE RECORDS SUMMARY | 2022-03-12 20:58 | XMS_ITS | Continuity of Care Document ---
:1965 Author Organization [facility] Address [address] [facility], 3rd Floor, [address] [place] [address]- Care Team Providers Name Role Phone Alysia FIELDS, Sanjeev Burt Primary Care Physician [place] [facility] [place] Date(s): 06/27/20 - 07/27/20 [facility] [address] [facility], 3rd [facility], [address] [place] [id number] Allergies, Adverse Reactions, Alerts Substance Reaction [...] 06/06/20 15:23:00 EDT, Route to Pharmacy Electronically, [facility] 47586, 178, cm, 03/29/20 9:56:00 EST, Height, 86.5, [...] 0 Refills, Maintenance, 04/12/20 16:45:00 EST, Tablet, [facility]/pharmacy #[id number], Partial fill upon patient request if the [...] 5 Refills, Maintenance, 03/29/20 10:10:00 EST, Tablet, [facility]/pharmacy #[id number], Partial fill upon patient request if the prescription is for a schedule II opioid drug., 178, cm, 03/29/20 9:56:00 EST,... Start Date: 03/29/20 Stop Date: 09/25/20 Status: OrderedclonazePAM 0.5 mg oral tablet 1 tablet = 0.5 mg, By Mouth, 3 times a day, MassPAT checked, # 90 tablet, 1 Refills, Maintenance, 04/12/20 16:46:00 EST, Tablet, [facility]/pharmacy #[id number], Partial fill upon patient request [...] Refills, Maintenance, 07/08/20 11:12:00 EDT, ER Tablet, [facility]/pharmacy #[id number], Partial fill upon patient request if the prescription is for a schedule II opioid drug., 178, cm, 07/08/20 10:59:... Start Date: 07/08/20 Stop Date: 01/04/21 Status: Orderedlevothyroxine 125 mcg (0.125 mg) oral capsule 2 capsule = 250 mcg, By Mouth, Daily, # 60 capsule, 0 Refills, Maintenance, 04/20/20 10:20:00 EST, Capsule, [facility]/pharmacy #[id number], Partial fill upon patient request [...]
--- OUTSIDE RECORDS SUMMARY | 2022-03-12 20:58 | XMS_ITS | Continuity of Care Document ---
:1965 Author Organization [facility] Address [address] [place] [address]- Care Team Providers Name Role Phone Rickey Neal MD Primary Care Physician [place] [facility] [place](s): 02/24/20 - 03/01/[address] [address]- Encounter Diagnosis Status epilepticus (Final) - 02/24/20 Discharge Disposition: Disch/Trans to IP Rehab or unit w/in Hos Attending Physician: Lyndsey Badillo MD Admitting Physician: Suzette Alvarez MD Referring Physician: Not on Staff, Referring [...] Height 178 cm 178 cm 178 cm (03/01/20 5:00 AM) (03/01/20 12:08 AM) (02/29/20 9:11 PM) Weight 86.5 kg (02/24/20 6:36 PM) Oxygen Saturation [94-100 100 % 100 % 100 % %] (03/01/20 11:57 AM) (03/01/20 8:33 AM) (03/01/20 5:00 AM) Pulse Rate [55-90 bpm] 98 bpm 82 bpm 73 bpm *H* (03/01/20 8:33 AM) (03/01/20 5:0 0 AM) (03/01/20 11:57 AM) Body Mass Index 27.3 [18.5-24.99] *H* (02/24/20 6:36 PM) Blood Pressure 138/51 mm Hg 103/75 mm Hg 104/62 mm Hg [90-138/55-84 mm Hg] (03/01/20 11:57 AM) (03/01/20 8:33 AM) ( 5:00 AM) Respiratory Rate [16-30 16 br/min 18 br/min 18 br/mi n br/min] (03/01/20 11:57 AM) (03/01/20 8:33 AM) (03/01/20 5:00 AM) Temperature [96.8-100.4 98.1 DegF 97.4 DegF 97.6 Deg F DegF] (03/01/20 11:57 AM) (03/01/20 8:33 AM) (03/01/20 5:00 AM) Liters per Minute 0 L/min 0 L/min 0 L/min (03/01/20 11:57 AM) (03/01/20 8:33 AM) (02/29/20 3:08 PM) Mode of Delivery (Oxygen) Room air Room air Room a ir (03/01/20 11:57 AM) (03/01/20 8:33 AM) (03/01/20 5:00 AM) Blood pressure sites Arm, left Arm, left Arm, left (03/01/20 11:57 AM) (03/01/20 8:33 AM) (03/01/20 5:00 AM) Temperature Route Temporal Oral Temporal (03/01/20 11:57 AM) (03/01/20 8:33 AM) (03/01/20 5:00 AM) Dry Weight 86.5 kg (02/24/20 6:36 PM)
--- OUTSIDE RECORDS SUMMARY | 2022-03-12 20:58 | XMS_ITS | Continuity of Care Document ---
:1965 Author Organization [facility] Address [address] [place] [address]- Care Team Providers Name Role Phone Alysia FIELDS, Sanjeev Burt Primary Care Physician En[place] [facility] [place] Date(s): 12/03/20 - 12/06/[address] [address] Encounter Diagnosis Seizure (Final) - 12/03/20 Discharge Disposition: A-D/C Home Attending Physician: oBo Romero MD Admitting Physician: Jalil Gamboa MD Referring Physician: Not on Staff, Referring [...] tablet, 0 Refills, Maintenance, 12/06/20 14:01:00 EDT, Matt, [facility]/pharmacy #[id number], Partial fill upon patient request if the prescription is for a schedule II opioid drug., 179, cm, 12/02/20 16:26:00 EDT, H... Start Date: 12/06/20 Stop Date: 01/05/21 Status: Orderedlevothyroxine 0.2 mg oral tablet TAKE 1 TABLET BY MOUTH EVERY DAY Start Date: 12/03/20 Status: Ordered Problem List Condition Effective Dates Status Health Status Informant CAP (community acquired Active pneumonia)(Confirmed) Results Radiology Reports Exam Date Time Procedure Performing Provider Status 12/03/20 5:20 PM Chest Portable Morena Fonseca (Verified) Notes:(Chest Portable) Reason For Exam: Tube PlacementRESULT: Chest Portable PROCEDURE: Chest Portable CLINICAL INDICATION: 55 years old Male with Reason: Tube Placement; Clinical Question(s): Tube Placement. COMPARISON: January 16, 2020 through earlier today. FINDINGS: Portable AP erect view of the chest performed at 4:49 PM. Lines and tubes: Several EKG leads project over the chest. Endotracheal tube has been advanced and is now 4.9 cm above the verito. Enteric tube ends in the proximal gastric body, the side-port in the gastric fundus. Lungs and pleura: Mild biapical pleural parenchymal scarring again noted. Lungs otherwise clear as visualized.. No pleural effusions.No evidence of pneumothorax. Heart, mediastinum and carlee: The cardiomediastinal silhouette and pulmonary vasculature are unremarkable. No cardiomegaly or pulmonary venous hypertension. Bones and soft tissues: No other demonstrable abnormality. IMPRESSION: 1. No evidence of acute cardiopulmonary disease. 2. ETT now ends 4.9 cm above the verito. Enteric tube ends in the proximal gastric body. Thank you for allowing me to participate in the care of this patient. WSN: [id number] Ordering Physician: Yuridia Ulrich Dictated By: Prince Bach MD Dictated Date/Time: 12/03/20 6:15 pm Reviewed By: Prince Bach MD Signed By: Prince Bach MD Signed Date/Time: 12/03/20 6:15 pm Transcribed By: ANIYA Transcribed Date/Time: 12/03/20 6:09 pm Exam Date Time Procedure Performing Provider Status 12/03/20 4:33 PM Chest Portable Jacquelin Fonseca; Jeffrey (Verified) Notes:(Chest Portable) Reason For Exam: Stroke;Other:RESULT: Chest Portable Chest Portable Reason: Other:; Stroke; Clinical Question(s): CHF COMPARISON: 02/01/2020 FINDINGS: LINES AND TUBES: Endotracheal tube terminates in the upper trachea at the thoracic inlet, about 8 cm above the verito. Recommend advancing by 4 cm. Nasogastric tube terminates below the diaphragm and below the lower margin of the radiograph. Sidehole is just distal to the GE junction. LUNGS AND PLEURA: Clear lungs. Normal pulmonary vascularity. No pleural effusion. No pneumothorax. HEART, MEDIASTINUM AND CARLEE: Heart is normal in size. Normal upper mediastinal and hilar contour. BONES AND SOFT TISSUES: No acute abnormality. IMPRESSION: No acute abnormality. Suggest advancing endotracheal tube by 4 cm. WSN: [id number] Ordering Physician: Lucia Lainez Dictated By: Leslie Loo MD Dictated Date/Time: 12/03/20 4:39 pm Reviewed By: Leslie Loo MD Signed By: Leslie Loo MD Signed Date/Time: 12/03/20 4:39 pm Transcribed By: ANIYA Transcribed Date/Time: 12/03/20 4:38 pm Vital Signs Most recent to oldest 1 2 3 [Reference Range]: Weight 64.6 kg (12/03/20 7:30 PM) Oxygen Saturation [94-100 %] 100 % 100 % 99 % (12/06/20 12:00 PM) (12/06/20 9:00 AM) (12/06/20 12 :07 AM) Pulse Rate [55-90 bpm] 86 bpm 82 bpm 88 bpm (12/06/20 12:00 PM) (12/06/20 9:00 AM) (12/06/20 12 :07 AM) Blood Pressure [90-138/55-84 112/70 mm Hg 116/73 mm Hg 147 /63 mm Hg mm Hg] (12/06/20 12:00 PM) (12/06/20 9:00 AM) *H* (12/06/20 12:07 A M) Respiratory Rate [16-30 18 br/min 18 br/min 20 br/mi n br/min] (12/06/20 12:00 PM) (12/06/20 9:00 AM) (12/06/20 12 :07 AM) Temperature [96.8-100.4 DegF] 98.6 DegF 98.2 DegF 97 .4 DegF (12/06/20 12:00 PM) (12/06/20 9:00 AM) (12/06/20 12 :07 AM) Liters per Minute 2 L/min (12/03/20 3:05 PM) Mode of Delivery (Oxygen) Room air Room air Room a ir (12/06/20 12:00 PM) (12/06/20 9:00 AM) (12/06/20 12 :07 AM) Blood pressure sites Arm, left Arm, left Arm, left (12/06/20 12:07 AM) (12/05/20 8:49 PM) (12/05/20 4: 26 PM) Temperature Route Oral Oral Temporal (12/06/20 12:00 PM) (12/06/20 9:00 AM) (12/06/20 12 :07 AM) Weight Obtained Via Bed scale (12/03/20 7:30 PM) Social History Social History Type Response Smoking Status Former smoker, quit more quoc n 30 days ago entered on: 12/05/20 Sex
--- OUTSIDE RECORDS SUMMARY | 2022-03-12 20:58 | XMS_ITS | Continuity of Care Document ---
:1965 Author Organization [facility] Address [address] [place] [address]- Care Team Providers Name Role Phone Sanjeev Hatfield MD Primary Care Physician Encounter [facility] [place] R [id number] Date(s): 12/02/20 - 12/02/[address] [address]- Discharge Disposition: A-D/C Walkout Attending Physician: Milly Moctezuma MD Admitting Physician: Milly Moctezuma MD Referring Physician: Not on Staff, Referring [...] 08/10/20 12:46:00 EDT, Route to Pharmacy Electronically, [facility] STORE 59279, 178, cm, 07/08/20 10:59:00 EDT, Height, 86.5, kg, 02/24/20 18:52:00 EST, Dry Weight Start Date: 08/10/20 Status: Orderedcalcium carbonate 600 mg oral tablet 1 tablet = 600 mg, By Mouth, 2 times a day, # 60 tablet, 0 Refills, Maintenance, 04/12/20 16:45:00 EST, Tablet, [facility]/pharmacy #[id number], Partial fill upon patient [...] 10/25/20 9:42:00 EDT, Route to Pharmacy Electronically, [facility]/pharmacy #[id number], Partial fill upon patient request if the prescription is for a schedule II opioid drug.... Start Date: 10/25/20 Status: OrderedlevETIRAcetam 500 mg oral tablet 3 tablet, By Mouth, 2 times a day, # 180 tablet, 5 Refills, Maintenance, 08/12/20 14:16:00 EDT, [facility], 178, cm, 07/08/20 10:59:00 EDT, Height, 86.5, kg, 02/24/20 18:52:00 EST, Dry Weight Start Date: 08/12/20 Status: Orderedlevothyroxine 175 mcg (0.175 mg) oral tablet 1 tablet = 175 mcg, By Mouth, Daily, Tae on empty stomach, # 90 tablet, 0 Refills, Maintenance, 11/17/20 16:25:00 EDT, Tablet, [facility]/pharmacy #[id number], Partial fill upon patient request if [...] oldest 1 2 3 [Reference Range]: Height 179 cm (12/02/20 4:26 PM) Weight 64.5 kg (12/02/20 4:26 PM) Oxygen Saturation [94-100 %] 100 % 100 % 100 % (12/02/20 5:32 PM) (12/02/20 4:26 PM) (12/02/20 4:2 1 PM) Pulse Rate [55-90 bpm] 82 bpm 76 bpm 84 bpm (12/02/20 5:32 PM) (12/02/20 4:26 PM) (12/02/20 4:2 1 PM) Blood Pressure [90-138/55-84 mm 128/71 mm Hg 126/68 mm Hg Hg] (12/02/20 5:32 PM) (12/02/20 4:26 PM) Respiratory Rate [16-30 br/min] 18 br/min 16 br/min (12/02/20 5:32 PM) (12/02/20 4:26 PM) Temperature [96.8-100.4 DegF] 97.7 DegF 97.8 DegF (12/02/20 5:32 PM) (12/02/20 4:26 PM) Mode of Delivery (Oxygen) Room air Room air (12/02/20 5:32 PM) (12/02/20 4:26 PM) Blood pressure sites Arm, left Arm, right (12/02/20 5:32 PM) (12/02/20 4:26 PM) Temperature Route Oral Oral (12/02/20 5:32 PM) (12/02/20 4:26 PM) Dry Weight 64.5 kg (12/02/20 4:26 PM) Weight Obtained Via Standing scale (12/02/20 4:26 PM) Dry Weight Obtained Via Standing scale (12/02/20 4:26 PM)
[2022-03-12 21:06] LABS: Influenza A PCR NEGATIVE (Negative); Influenza B PCR NEGATIVE (Negative); Resp Syncy Virus RNA Qual PCR NEGATIVE (Negative); SARS COV2 PCR INHOUSE NEGATIVE (Negative)
[2022-03-12 21:40] LABS: MANUAL DIFF FLAG NO
[2022-03-12 21:41] LABS: Basophils Percent Auto 0.7 % (0-2); Eosinophils Absolute Auto 0.1 X10*3/uL (0.0-0.4); Eosinophils Percent Auto 2.1 % (0-4); Hematocrit 41.1 % (42.0-52.0); Hemoglobin 13.1 g/dl (14.0-18.0); Imm Gran Abs Auto 0.04 X10*3/uL (0.00-0.03); Imm Gran Pct Auto 0.7 % (0.0-0.4); Lymphocytes Absolute Auto 2.1 X10*3/uL (1.2-4.9); Lymphocytes Percent Auto 36.3 % (20-40); Mean Corpuscular HGB Conc 31.9 g/dl (31.0-36.0); Mean Corpuscular Hemoglobin 26.4 pg (27.0-33.0); Mean Corpuscular Volume 82.9 fL (80.0-98.0); Mean Platelet Volume 9.3 fL (9.4-12.4); Monocytes Absolute Auto 0.3 X10*3/uL (0.1-1.2); Monocytes Percent Auto 5.2 % (2-11); Neutrophils Absolute Auto 3.2 x10*3/uL (2.0-8.3); Platelet Count 203 X10*3/uL (160-400); Red Blood Count 4.96 X10*6/uL (4.60-5.80); Red Cell Distribution Width 18.3 % (11.0-16.0); White Blood Count 5.8 X10*3/uL (4.8-10.8)
[2022-03-12 21:56] LABS: Alanine Aminotransferase 25 U/L (0-40); Albumin Level 4.1 g/dL (3.5-5.0); Alkaline Phosphatase 75 U/L (39-117); Anion Gap 12 (12-20); Aspartate Amino Transferase 43 U/L (5-37); Bilirubin Direct 0.3 mg/dL (0.0-0.5); Bilirubin Total 1.1 mg/dL (0.0-1.0); Blood Urea Nitrogen 17 mg/dL (9-16); Calcium 8.7 mg/dL (8.4-10.2); Carbon Dioxide 27 mmol/L (22-29); Chloride 103 mmol/L (96-108); Creatinine Clr Calc Pharmacy 73.6; Estimated Glomerular Filt Rate 59; Glucose Random 166 mg/dL (60-115); Lipase 44 U/L (8-78); Potassium 3.4 mmol/L (3.3-5.1); Sodium 139 mmol/L (135-145); Total Protein 6.3 g/dL (6.5-8.0)
--- NOTE | 2022-03-13 06:11 | PC.NURSE ---
Patient slept though the night, no distress observed/reported, patient at the time changeover was not compliant/demanding discharge/provider ordered Ativan 2 mg PO + Haldol 5 mg PO + Benadryl 50 mg PO/administered at 2017 with + effect, per care team patient's disposition is section 12 inpatient bed search, patient was evaluated by [facility] in the community, HS medication not administered patient sleeping/difficult to wake up, CT Head unremarkable, VSS, will continue to monitor.
[2022-03-13 06:28] VITALS: BP 115/78; PULSE 63; RESP 15; TEMP 36.6; O2SAT 98
[2022-03-13] MEDS: Levothyroxine Sodium 200 MCG TABLET PO (06:29)
[2022-03-13] MEDS: levETIRAcetam 500 MG TABLET 1500 MG PO ×2 (08:22→21:37)
--- NOTE | 2022-03-13 14:47 | PC.NURSE ---
nurse to nurse given to [facility] staff
[2022-03-13 18:00] VITALS: RESP 16
--- NOTE | 2022-03-13 20:26 | PC.ADMIT ---
pt is a 57 year old male who presented to [facility] with delusions. pt came to unit on a 12b. pt has a PMH of strokes, brain aneurism, and being a thyroid coma. during the admission, pt was hard to redirect and didn't want to sign anymore papers after the belongings legal. pt does not understand why he is here. after admission, pt ate his food and made a few phone calls that didn't make any sense. pt can't remember the events leading him to be here.
[2022-03-14] MEDS: levETIRAcetam 500 MG TABLET 1500 MG PO (08:38)
[2022-03-14] MEDS: Levothyroxine Sodium 200 MCG TABLET PO (08:38)
[2022-03-14 08:42] VITALS: BP 117/72; PULSE 85; RESP 18; TEMP 35.9; O2SAT 97
--- NOTE | 2022-03-14 09:32 | PC.NURSE ---
Pt denies being a smoker at this time.
[2022-03-14 09:37] LABS: Estimated Average Glucose 128 mg/dL; Hemoglobin A1c % 6.1 %
[2022-03-14 09:59] LABS: Alanine Aminotransferase 24 U/L (0-40); Albumin Level 4.5 g/dL (3.5-5.0); Alkaline Phosphatase 93 U/L (39-117); Anion Gap 14 (12-20); Aspartate Amino Transferase 30 U/L (5-37); Blood Urea Nitrogen 17 mg/dL (9-16); Calcium 9.5 mg/dL (8.4-10.2); Carbon Dioxide 26 mmol/L (22-29); Chloride 102 mmol/L (96-108); Cholesterol 279 mg/dL; Creatinine Clr Calc Pharmacy 81.9; Estimated Glomerular Filt Rate > 60; Glucose Fasting 100 mg/dL (60-99); HDL Cholesterol 42 mg/dL; LDL Cholesterol Calculated 206 mg/dl; Potassium 4.2 mmol/L (3.3-5.1); Sodium 138 mmol/L (135-145); Triglycerides 158 mg/dL
[2022-03-14 10:13] LABS: Thyroid Stimulating Hormone 71.64 uIU/mL (0.32-4.0)
[2022-03-14 10:52] LABS: Folate 4.9 ng/mL (> or = 4.0); Vitamin B12 320 pg/mL (200-900)
--- NOTE | 2022-03-14 12:56 | MHC.CLN ---
NUTRITION CONSULT FOR NOT EATING . VISITED WITH PATIENT HAVING LUNCH IN HIS ROOM. STATED THAT HE IS EATING. OBSERVED EATING HAMBURGER AND HAD VARIETY OF FOOD ON TRAY. ORDERED MEALS FOR NEXT DAY WITH [facility]. DOES NOT WANT NUTRITIONAL SUPPLEMENT. DOES NOT APPEAR TO NEED NUTRITIONAL SUPPLEMENT AT THIS TIME.
--- NOTE | 2022-03-14 16:00 | HO.PSYADMNOT ---
HPI Date of Service: 03/14/22 Chief Complaint: capgrass delusions Sources of Information: patient interviewed, chart reviewed and crisis/core team assessment reviewed HPI Subjective Notes: Diehl Warning, Conditional Voluntary and Section 12B Narrative: Patient is a 57-year-old male on a 12b with a history of hypothyroid disorder/thyroid coma, stroke and brain aneurysm who presents to the emergency room reportedly after his friends to come to a clinic, concern for his memory impairment, delusional thinking (about people being imposters), not taking medications and poor ADLs. Patient is calm and cooperative on approach. He says he does not really know why his friends dropped him off; he says there drunk but agrees they were worried about him though he is not sure why. Patient says he has had significant memory problems for a while but he cannot say for how long or if they have worsened (cannot even quantify if measured in weeks, months or years). Initially he denies that he has worries that people might be imposters, but later on in the interview he says sometimes, due to his poor memory, he will listen to how a friend/family member talks, the words they use, and if they appear different than usual, he worries they could be an imposter. One concern is that his sister is going to try and sell his house. He says he has been living with her for the past 2 years following from his , which he is grateful for, but keeps saying he thinks he is trying to sell it behind his back though she denies this. However, if so, he more thinks of it as friends playing a joke on him. He thinks his phone was hacked by his ex-'s boyfriend, however again he does not think it's malicious but just a joke. Patient does say that his poor memory is scaring him; he says everything is a blank since he has trouble remembering his family members names, or who they are unless he sees them visually; he says he loses track shopping and needs help doing so. When asked if he has children he says I think so... As senior medical writer inquired further, he says he knows he does and then starts to describe them, however he acknowledges that for a moment he might have been unsure. Patient says the only medication he takes is levothyroxine which he has been taking regularly, although TSH is high; patient says he has not been taking Keppra for about a year and wants it discontinued. Patient says he does want help but he is afraid of being locked up for the rest of his life and so does not want to sign in. However he did sign a release to talk to both his sister and ex-. Otherwise, Patient denies any auditory or visual hallucinations; he denies any alcohol or drug use; no other paranoid/delusional thoughts could be solicited. Patient denies any SI or HI; denies history of trauma. Past Psychiatric History: Reports 2x psychiatric hospitalizations, 1 about a year ago when he took an overdose of pills; he says he was not really tried to kill himself but just needed someone to talk to and the admission was helpful. Medical Evaluation Reviewed: Yes [facility] Medical History (Updated 03/15/22 @ 09:12 by Teo Moralez MD) Hypothyroidism Seizures Family History: Reports extensive family history of alcoholism Social History: Patient from his about 2 years ago Patient currently lives with his sister Ros Dropped out of school in the 10th grade to work Grew up with his mother Little historical contact with his father who is now Patient is the youngest of 5 siblings Substance History: Denies alcohol or drug use (minimal experimentation and high school) Trauma History: Denies Diagnostics Vital Signs (24Hr): Vital Signs - 24 hr 03/13/22 18:00 03/14/22 08:42 Temperature 96.7 F L Pulse Rate 85 Respiratory Rate 16 18 Blood Pressure 117/72 Pulse Oximetry 97 Oxygen Delivery Method Room Air BMI result Body Mass Index 27.9 Labs 03/12/22 21:36 03/14/22 08:37 Labs: Laboratory Results - last 48 hr 03/12/22 03/12/22 03/12/22 20:23 20:23 20:23 WBC RBC Hgb Hct MCV MCH MCHC RDW Plt Count MPV Immature Gran % (Auto) Neut % (Auto) Lymph % (Auto) Tompkins % (Auto) Eos % (Auto) Baso % (Auto) Lymph # (Auto) Tompkins # (Auto) Eos # (Auto) Baso # (Auto) Abs Immat Gran (auto) Absolute Neuts (auto) Absolute Nucleated RBC Nucleated RBC % (auto) Sodium Potassium Chloride Carbon Dioxide Anion Gap BUN Creatinine Estim Creat Clear Calc Estimated GFR Random Glucose Fasting Glucose Estimat Average Glucose Hemoglobin A1c % Calcium Total Bilirubin Direct Bilirubin AST ALT Alkaline Phosphatase Total Protein Albumin Triglycerides Cholesterol LDL Cholesterol, Calc HDL Cholesterol Lipase Vitamin B12 Folate TSH Urine Color Dark Yellow Urine Appearance Clear Urine pH 5.5 Ur Specific [place] >= 1.030 H Urine Protein 30 (1+) H Urine Glucose (UA) Negative Urine Ketones Trace Urine Blood Negative Urine Nitrite Negative Ur Leukocyte Esterase Negative Urine RBC 0-2 Urine WBC 0-5 Ur Squamous Epith Cells 0-2 Urine Bacteria None Seen Hyaline Casts 0-2 Urine Opiates Screen Not Detected Urine Fentanyl Screen Not Detected Ur Barbiturates Screen Not Detected Ur Phencyclidine Scrn Not Detected Ur Amphetamines Screen Not Detected U Benzodiazepines Scrn Not Detected Urine Cocaine Screen Not Detected U Marijuana (THC) Screen Not Detected Influenza Type A (PCR) NEGATIVE Influenza Type B (PCR) NEGATIVE RSV RNA Qual (PCR) NEGATIVE SARS-CoV-2 RNA (RT-PCR) NEGATIVE 03/12/22 03/12/22 03/14/22 21:36 21:36 08:37 WBC 5.8 RBC 4.96 Hgb 13.1 L Hct 41.1 L MCV 82.9 MCH 26.4 L MCHC 31.9 RDW 18.3 H Plt Count 203 MPV 9.3 L Immature Gran % (Auto) 0.7 H Neut % (Auto) 55.0 Lymph % (Auto) 36.3 Tompkins % (Auto) 5.2 Eos % (Auto) 2.1 Baso % (Auto) 0.7 Lymph # (Auto) 2.1 [place]pkins # (Auto) 0.3 Eos # (Auto) 0.1 Baso # (Auto) 0.0 Abs Immat Gran (auto) 0.04 H Absolute Neuts (auto) 3.2 Absolute Nucleated RBC 0.000 Nucleated RBC % (auto) 0.0 Sodium 139 138 Potassium 3.4 4.2 D Chloride 103 102 Carbon Dioxide 27 26 Anion Gap 12 14 BUN 17 H 17 H Creatinine 1.27 1.14 Estim Creat Clear Calc 73.6 81.9 Estimated GFR 59 > 60 Random Glucose 166 H Fasting Glucose 100 H Estimat Average Glucose Hemoglobin A1c % Calcium 8.7 9.5 D Total Bilirubin 1.1 H 1.0 Direct Bilirubin 0.3 AST 43 H 30 ALT 25 24 Alkaline Phosphatase 75 93 Total Protein 6.3 L 7.0 Albumin 4.1 4.5 Triglycerides 158 Cholesterol 279 LDL Cholesterol, Calc 206 HDL Cholesterol 42 Lipase 44 Vitamin B12 Folate TSH 71.64 H Urine Color Urine Appearance Urine pH Ur Specific [place] Urine Protein Urine Glucose (UA) Urine Ketones Urine Blood Urine Nitrite Ur Leukocyte Esterase Urine RBC Urine WBC Ur Squamous Epith Cells Urine Bacteria Hyaline Casts Urine Opiates Screen Urine Fentanyl Screen Ur Barbiturates Screen Ur Phencyclidine Scrn Ur Amphetamines Screen U Benzodiazepines Scrn Urine Cocaine Screen U Marijuana (THC) Screen Influenza Type A (PCR) Influenza Type B (PCR) RSV RNA Qual (PCR) SARS-CoV-2 RNA (RT-PCR) 03/14/22 03/14/22 08:37 08:37 WBC RBC Hgb Hct MCV MCH MCHC RDW Plt Count MPV Immature Gran % (Auto) Neut % (Auto) Lymph % (Auto) [place] % (Auto) Eos % (Auto) Baso % (Auto) Lymph # (Auto) [place] # (Auto) Eos # (Auto) Baso # (Auto) Abs Immat Gran (auto) Absolute Neuts (auto) Absolute Nucleated RBC Nucleated RBC % (auto) Sodium Potassium Chloride Carbon Dioxide Anion Gap BUN Creatinine Estim Creat Clear Calc Estimated GFR Random Glucose Fasting Glucose Estimat Average Glucose 128 Hemoglobin A1c % 6.1 Calcium Total Bilirubin Direct Bilirubin AST ALT Alkaline Phosphatase Total Protein Albumin Triglycerides Cholesterol LDL Cholesterol, Calc HDL Cholesterol Lipase Vitamin B12 320 Folate 4.9 TSH Urine Color Urine Appearance Urine pH Ur Specific [place] Urine Protein Urine Glucose (UA) Urine Ketones Urine Blood Urine Nitrite Ur Leukocyte Esterase Urine RBC Urine WBC Ur Squamous Epith Cells Urine Bacteria Hyaline Casts Urine Opiates Screen Urine Fentanyl Screen Ur Barbiturates Screen Ur Phencyclidine Scrn Ur Amphetamines Screen U Benzodiazepines Scrn Urine Cocaine Screen U Marijuana (THC) Screen Influenza Type A (PCR) Influenza Type B (PCR) RSV RNA Qual (PCR) SARS-CoV-2 RNA (RT-PCR) Imaging Radiology Impressions: ITS Impressions Head CT 03/12/22 20:45 IMPRESSION: 1. No acute intracranial pathology. Meds/Allergies Meds Home Medications Medication Instructions Recorded Confirmed Type levetiracetam 500 mg tablet 3 tab PO BID 03/12/22 03/12/22 History levothyroxine 200 mcg tablet 1 tab PO DAILY 03/12/22 03/12/22 History Allergies Allergies Allergy/AdvReac Type Severity Reaction Status Date / Time amoxicillin [AMOXICILLIN] Allergy Unknown VOMITING/ABD Unverified 11/19/19 19:25 PAIN Mental Status Exam Mental Status Exam Narrative: Pt is alert and oriented; behavior is cooperative, friendly and calm; patient is not in distress; dressed in casual attire and disheveled; mood is described as scared and affect anxious; eye contact appropriate; Speech is normal rate, volume and prosody and not pressured; no psychomotor agitation/retardation present; thought process is organized and goal directed; Thought content is on anxiety over memory impairment; some paranoid thinking about people sometimes being imposters; otherwise pertinent to relevant topics; denies any SI/HI. There is no evidence of perceptual disturbance and he denies AVH. Patients insight and judgment impaired. Assessment & Plan Assessment & Plan (1) Cognitive and behavioral changes: Status: Acute Code(s): R41.89 - Other symptoms and signs involving cognitive functions and awareness; R46.89 - Other symptoms and signs involving appearance and behavior (2) Delusional disorder: Status: Acute Code(s): F22 - Delusional disorders (3) Hypothyroidism: Status: Acute Code(s): E03.9 - Hypothyroidism, unspecified Plan Patient is a 57-year-old male on a 12b with a history of hypothyroid disorder/thyroid coma, stroke and brain aneurysm who presents to the emergency room reportedly after his friends to come to a clinic, concern for his memory impairment, delusional thinking (about people being imposters), not taking medications and poor ADLs. Patient is a poor historian and collateral as necessary to further assess. -He has history of stroke and other comorbidities that could influence cognition. Collateral is necessary to figure out the timelines of his memory impairment and whether it has worsened. Also, will need history from Neurology to see what imaging has been done -patient does have some paranoid delusional thoughts; he is vague about them. He does look moderately disheveled however he does not appear overtly disorganized at this time -significantly elevated TSH; he does say he takes his thyroid medication daily but will need collateral -although he says he scared about his memory impairment, he denies all other psychiatric symptoms. -will consult with endocrinology regarding elevated TSH Plan 12b Q 15 minute checks Continue levothyroxine Discontinue Levetiracetam: Patient says he has not been on that for almost a year and prescription history seems to support this. He says he does not want and it is to be discontinued. He denies any history of actually having a seizure but says this was started s/p thyroid coma as a prophylactic measure to prevent seizure Pursue collateral: Ros , patient's sister(ANNETTE signed) Romina, patient's ex- (ANNETTE signed) Patient educated on: diagnosis, medication risk/benefits and medical condition Informed Consent: understands, does not understand and further education needed Reason for continued inpatient stay Substantial Risk for: med/psych decompensation Statement Statement: I have reviewed the history and physical and performed a pertinent examination on my patient. No changes have occurred unless specified. If the History and Physical was not performed prior to admission, the Hospitalist's service will be consulted for completing the admission physical. Time Spent With Patient Time: Total time managing care of this patient today ____ minutes.
[2022-03-14 22:00] VITALS: BP 118/77; PULSE 95; TEMP 36.2; O2SAT 98
[2022-03-15 07:00] VITALS: BMI 25.7
[2022-03-15] MEDS: Levothyroxine Sodium 200 MCG TABLET PO (08:59)
[2022-03-15 09:12] VITALS: BP 119/77; PULSE 97; RESP 18; TEMP 36.4; O2SAT 98
--- NOTE | 2022-03-15 09:28 | HO.PSYCHPN ---
Subjective Subjective Date of Service: 03/15/22 Reason For Visit: capgrass delusions Interim History: On approach Patient calm and cooperative. However he stands in [address] in the bautista for hours on end, not moving, not interacting with others. Hospital Food Service Worker shared with patient what his sister said: Hospital Food Service Worker talked to patient's sister Ros today. She reports that up until his aneurysm, stroke thyroid issue all and 2020, patient was without any delusional issues. She said after his stroke, he had seizures for 3 months and needed rehabilitation for walking and talking. Since then he has struggled with significant memory loss and sometimes struggles to recognize people he knows. He was taking medications including Keppra and psychiatric medications for a while but stopped taking all of about 5+ months ago including his levothyroxine. She says that since then he has started to decompensate and over the past couple months it has gotten worse. She reports that he is become very suspicious and paranoid and accusing his sister of having a GPS on him. He also accused her of fabricating a bank account and believes that somehow she is involved in interfering with his frank-assist card; when she tried to explain that now that he has SSI, the frank-assist card became obsolete and a bank account set up, he refused believe her and says the [employer] people, whom he talked to himself, are scammers. Patient believes his phone is hacked and although he stares at it for most of the day, he will not answer it. Patient is very worried that his sisters trying to sell his house where his ex- still lives which will render her homeless. The past few weeks patient has had worsening behaviors. He started yelling and glaring at his sister saying that she is killing his family (possible about his belief that she is trying to sell his house which will make his ex- homeless) and saying over and over how could you do this. Sister was scared and called the police and started locking her bedroom door at night. family day care worker was talking with sister but patient was convinced it was not his real sister but an imposter. Patient espouses belief that his exwife is having squatters live in the basement which worries him. He also has concerns that his is dying, that she is not eating and unable to get water. Sister reports that patient violated the restraining order from his ex- and 2 weeks ago went over to the house, knocking on the door; the police came and patient was arrested. As soon as he was released, he went back to the house and was arrested again; as soon as released he went back to the house a 3rd time but this time just stood in front of it staring for hours. The last few days patient was staying at a friend's house who reports he was not showering or eating or sleeping for 3 days. Patient agrees with much of this. He says something is going on and he agrees there has been a recent escalation in problems. He reports that he did recently go to his ex-'s house, the house he owns repeatedly even after being arrested. He says I do not know why I went back... I went There and I would knock and knock.... I wonder if she is okay... I think that I am missing something on the other side of the door and.. I have to know. I am wondering what it is. He agrees that something is wrong and says the memory loss keeps bringing me back there... . He agrees he is not always sure if his sister or his mother are imposters. He asked them both about details of the home he grew up in but felt they did not know the answers so is questioning their authenticity. He is very worried that his is planning to sell the house which will make his homeless; he is worried his xwife is not eating very much at all and is sick. He concurs he is concerned that his is letting Street people live in their basement. Patient also agrees that unless he gets treatment he will likely continue these behaviors which worries him. Therefore he agreed to retract his 3 day notice and stay for treatment. He says he stopped taking levothyroxine because he does not like taking pills He stopped Keppra for the same reason and also that it made his stomach sick; denies any history of seizures since stopping about a year ago Hospital Food Service Worker discussed case with radiation technician Dr. Alberts (see Assessment) Mental Status Exam Mental Status Exam Narrative: Pt is alert and oriented; behavior is cooperative, friendly and calm; patient is not in distress; dressed in casual attire, clean cloths, adequate hygiene; mood is described as somethings wrong and affect anxious; eye contact appropriate; Speech is normal rate, volume and prosody and not pressured; no psychomotor agitation/retardation present; thought process is organized and goal directed; Thought content is on anxiety over memory impairment and on paranoid thinking; otherwise pertinent to relevant topics; denies any SI/HI. There is no evidence of perceptual disturbance and he denies AVH. Patients insight and judgment impaired. Diagnostics Vital Signs (24Hr): Vital Signs - 24 hr 03/14/22 22:00 03/15/22 09:12 Temperature 97.1 F 97.5 F Pulse Rate 95 97 Respiratory Rate 18 Blood Pressure 118/77 119/77 Pulse Oximetry 98 98 Oxygen Delivery Method Room Air Room Air BMI result Body Mass Index 27.9 Labs 03/12/22 21:36 03/14/22 08:37 Labs: Laboratory Results - last 48 hr 03/14/22 03/14/22 03/14/22 08:37 08:37 08:37 Sodium 138 Potassium 4.2 D Chloride 102 Carbon Dioxide 26 Anion Gap 14 BUN 17 H Creatinine 1.14 Estim Creat Clear Calc 81.9 Estimated GFR > 60 Fasting Glucose 100 H Estimat Average Glucose 128 Hemoglobin A1c % 6.1 Calcium 9.5 D Total Bilirubin 1.0 AST 30 ALT 24 Alkaline Phosphatase 93 Total Protein 7.0 Albumin 4.5 Triglycerides 158 Cholesterol 279 LDL Cholesterol, Calc 206 HDL Cholesterol 42 Vitamin B12 320 Folate 4.9 TSH 71.64 H Imaging Radiology Impressions: ITS Impressions Head CT 03/12/22 20:45 IMPRESSION: 1. No acute intracranial pathology. Medications Medications Current Medications Acetaminophen (Acetaminophen 325 Mg Tablet) 650 mg PO Q6H PRN PRN Reason: Headache/Pain Mild Scale (1-3) Al Hydroxide/Mg Hydroxide (Magnesium Hydrox/Alum Hydrox 30 Ml Oral.Susp) 30 ml PO Q6H PRN PRN Reason: Heartburn/Nausea Hydroxyzine HCl (Hydroxyzine Hcl 25 Mg Tablet) 25 mg PO Q6H PRN PRN Reason: Anxiety Levothyroxine Sodium (Levothyroxine Sodium 200 Mcg Tablet) 200 mcg PO DAILY@0630 [facility] Last Admin: 03/15/22 08:59 Dose: 200 mcg Magnesium Hydroxide (Milk Of Magnesia 30 Ml Oral.Susp) 30 ml PO DAILY PRN PRN Reason: Constipation Trazodone HCl (Trazodone Hcl 50 Mg Tablet) 50 mg PO BEDTIME PRN PRN Reason: Insomnia Allergies Allergies Allergy/AdvReac Type Severity Reaction Status Date / Time amoxicillin [AMOXICILLIN] Allergy Unknown VOMITING/ABD Unverified 11/19/19 19:25 PAIN Assessment & Plan Assessment & Plan (1) Cognitive and behavioral changes: Status: Acute Code(s): R41.89 - Other symptoms and signs involving cognitive functions and awareness; R46.89 - Other symptoms and signs involving appearance and behavior (2) Delusional disorder: Status: Acute Code(s): F22 - Delusional disorders (3) Hypothyroidism: Status: Acute Code(s): E03.9 - Hypothyroidism, unspecified Plan Patient is a 57-year-old male on a 12b with a history of hypothyroid disorder/thyroid coma, stroke and brain aneurysm who presents to the emergency room reportedly after his friends to come to a clinic, concern for his memory impairment, delusional thinking (about people being imposters), not taking medications and poor ADLs. Patient is a poor historian and collateral as necessary to further assess. -He has history of stroke and other comorbidities that could influence cognition. Collateral is necessary to figure out the timelines of his memory impairment and whether it has worsened. Also, will need history from Neurology to see what imaging has been done -patient does have some paranoid delusional thoughts; he is vague about them. He does look moderately disheveled however he does not appear overtly disorganized at this time -significantly elevated TSH; he does say he takes his thyroid medication daily but will need collateral -although he says he scared about his memory impairment, he denies all other psychiatric symptoms. -will consult with endocrinology regarding elevated TSH Hospital Food Service Worker discussed case with radiation technician Dr. Alberts. 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 As patient has not been taking levothyroxine, it is recommended to continue at current dose, make sure it by foods and other medications for 2 hours and recheck in a week Otherwise can monitor for vitals, bradycardia, decreased respiratory rate 03/15 Collateral helpful and reveals that he is having psychotic symptoms and is confused, possibly in the face of going off psychiatric medications; sister will try to get a hold of recent medication list; specification writer did try to call patient's PCP Dr. Hatfield but was unable to connect (ANNETTE Signed). Hypothyroidism due to noncompliance with medication. Memory loss present since stroke Plan CV Q 15 minute checks 1. Psychotic symptoms/delusions -possible the patient has been prescribed psychotropic medications in the past -symptoms seem to be worsening over the past 5 months possibly in the face of going off medications -will try to find out more of history and likely prescribe 2. 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 Cognitive disorder s/p stroke 2020: Reportedly present since stroke in 2020 Will likely refer to neurologist Otherwise: Discontinue Levetiracetam: Patient says he has not been on that for almost a year and prescription history seems to support this. He says he does not want and it is to be discontinued. He denies any history of actually having a seizure but says this was started s/p thyroid coma as a prophylactic measure to prevent seizure will continue to Pursue collateral: Ros , patient's sister(ANNETTE signed) Romina, patient's ex- (ANNETTE signed) Patient educated on: diagnosis and medication risk/benefits Informed Consent: understands, does not understand and further education needed Reason for contiued inpatient stay Substantial Risk for: inability to function Time Spent With Patient Time: Total time managing care of this patient today ____ minutes.
[2022-03-15 17:55] LABS: Free T4 (Free Thyroxine) 0.53 ng/dL (0.71-1.85); TSH reflex Free T4 67.72 uIU/mL (0.32-4.0)
[2022-03-15 18:00] VITALS: BP 122/68; PULSE 82; RESP 16; TEMP 36.4; O2SAT 98
[2022-03-16] MEDS: Levothyroxine Sodium 200 MCG TABLET PO (06:16)
[2022-03-16 09:49] VITALS: BP 114/78; PULSE 94; RESP 18; TEMP 36.4; O2SAT 97
--- NOTE | 2022-03-16 17:11 | HO.PSYCHPN ---
Subjective Subjective Date of Service: 03/16/22 Reason For Visit: capgrass delusions Interim History: Patient remains with paranoid thinking and cognitive impairment. Facilities Custodian discussed case with Dr. Hatfield's electromedical equipment repairer and patient was last seen on 09/30/2019 to taking levothyroxine, mirtazapine 15 mg, Depakote ER 750 mg and cyproheptadine 4 mg. Patient was not on Keppra. justowriter operator reviewed this history with patient and he says he does not remember any of these. Because patient does not like blood draws justowriter operator discussed options and He agrees to Risperdal. Patient then said he hopes to discharge soon because he needs to start work. Facilities Custodian reminded patient that he has not worked in years and has no upcoming job options. Patient a little confused but agrees he has not worked in years and does not have any upcoming jobs. He Accepted that a few more days in the unit will not interfere with this however he does not have insight into the fact that he is to confused for work right now and needs treatment. Mental Status Exam Mental Status Exam Narrative: Pt is alert and oriented; behavior is cooperative, friendly and calm; patient is not in distress; dressed in casual attire, clean cloths, adequate hygiene; mood is described as somethings wrong and affect anxious; eye contact appropriate; Speech is normal rate, volume and prosody and not pressured; no psychomotor agitation/retardation present; thought process is organized and goal directed; Thought content is on anxiety over memory impairment and on paranoid thinking; otherwise pertinent to relevant topics; denies any SI/HI. There is no evidence of perceptual disturbance and he denies AVH. Patients insight and judgment impaired. Diagnostics Vital Signs (24Hr): Vital Signs - 24 hr 03/15/22 18:00 03/16/22 09:49 Temperature 97.6 F 97.6 F Pulse Rate 82 94 Respiratory Rate 16 18 Blood Pressure 122/68 114/78 Pulse Oximetry 98 97 Oxygen Delivery Method Room Air Room Air BMI result Body Mass Index 25.7 Labs 03/12/22 21:36 03/14/22 08:37 Labs: Laboratory Results - last 48 hr 03/15/22 03/15/22 17:06 17:06 TSH 67.72 H Free T4 0.53 L Imaging Radiology Impressions: ITS Impressions Head CT 03/12/22 20:45 IMPRESSION: 1. No acute intracranial pathology. Medications Medications Current Medications Acetaminophen (Acetaminophen 325 Mg Tablet) 650 mg PO Q6H PRN PRN Reason: Headache/Pain Mild Scale (1-3) Al Hydroxide/Mg Hydroxide (Magnesium Hydrox/Alum Hydrox 30 Ml Oral.Susp) 30 ml PO Q6H PRN PRN Reason: Heartburn/Nausea Hydroxyzine HCl (Hydroxyzine Hcl 25 Mg Tablet) 25 mg PO Q6H PRN PRN Reason: Anxiety Levothyroxine Sodium (Levothyroxine Sodium 200 Mcg Tablet) 200 mcg PO DAILY@0630 [facility] Last Admin: 03/16/22 06:16 Dose: 200 mcg Magnesium Hydroxide (Milk Of Magnesia 30 Ml Oral.Susp) 30 ml PO DAILY PRN PRN Reason: Constipation Trazodone HCl (Trazodone Hcl 50 Mg Tablet) 50 mg PO BEDTIME PRN PRN Reason: Insomnia Allergies Allergies Allergy/AdvReac Type Severity Reaction Status Date / Time amoxicillin [AMOXICILLIN] Allergy Unknown VOMITING/ABD Unverified 11/19/19 19:25 PAIN Assessment & Plan Assessment & Plan (1) Cognitive and behavioral changes: Status: Acute Code(s): R41.89 - Other symptoms and signs involving cognitive functions and awareness; R46.89 - Other symptoms and signs involving appearance and behavior (2) Delusional disorder: Status: Acute Code(s): F22 - Delusional disorders (3) Hypothyroidism: Status: Acute Code(s): E03.9 - Hypothyroidism, unspecified Plan Patient is a 57-year-old male on a 12b with a history of hypothyroid disorder/thyroid coma, stroke and brain aneurysm who presents to the emergency room reportedly after his friends to come to a clinic, concern for his memory impairment, delusional thinking (about people being imposters), not taking medications and poor ADLs. Patient is a poor historian and collateral as necessary to further assess. -He has history of stroke and other comorbidities that could influence cognition. Collateral is necessary to figure out the timelines of his memory impairment and whether it has worsened. Also, will need history from Neurology to see what imaging has been done -patient does have some paranoid delusional thoughts; he is vague about them. He does look moderately disheveled however he does not appear overtly disorganized at this time -significantly elevated TSH; he does say he takes his thyroid medication daily but will need collateral -although he says he scared about his memory impairment, he denies all other psychiatric symptoms. -will consult with endocrinology regarding elevated TSH Facilities Custodian discussed case with supervisor core shop Dr. Alberts. 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 As patient has not been taking levothyroxine, it is recommended to continue at current dose, make sure it by foods and other medications for 2 hours and recheck in a week Otherwise can monitor for vitals, bradycardia, decreased respiratory rate 03/15 Collateral helpful and reveals that he is having psychotic symptoms and is confused, possibly in the face of going off psychiatric medications; sister will try to get a hold of recent medication list; justowriter operator did try to call patient's PCP Dr. Hatfield but was unable to connect (ANNETTE Signed). Hypothyroidism due to noncompliance with medication. Memory loss present since stroke 03/16 will start Risperdal Plan CV Q 15 minute checks 1. Psychotic symptoms/delusions Start Risperdal 1 mg b.i.d. -some history of prescribed psychotropic medications: mirtazapine 15 mg, Depakote ER 750 mg -symptoms seem to be worsening over the past 5 months possibly in the face of going off medications -will try to find out more of history and likely prescribe 2. Hypothyroid: Continue levothyroxine 200mcg daily at 06:30 Repeat TSH/free T4 hx of myxedema coma 3. Cognitive disorder s/p stroke 2020: Reportedly present since stroke in 2020 Will likely refer to neurologist Otherwise: Discontinue Levetiracetam: Patient says he has not been on that for almost a year and prescription history seems to support this. He says he does not want and it is to be discontinued. He denies any history of actually having a seizure but says this was started s/p thyroid coma as a prophylactic measure to prevent seizure will continue to Pursue collateral: Ros , patient's sister(ANNETTE signed) Romina, patient's ex- (ANNETTE signed) Patient educated on: diagnosis and medication risk/benefits Informed Consent: does not understand and further education needed Reason for contiued inpatient stay Substantial Risk for: inability to function Time Spent With Patient Time: Total time managing care of this patient today ____ minutes.
[2022-03-16 18:00] VITALS: BP 128/68; PULSE 85; RESP 16; TEMP 36.4; O2SAT 98
[2022-03-16] MEDS: risperiDONE 1 MG TABLET PO (20:32)
[2022-03-17] MEDS: risperiDONE 1 MG TABLET PO (08:36)
[2022-03-17] MEDS: Levothyroxine Sodium 200 MCG TABLET PO (08:36)
[2022-03-17 08:39] VITALS: BP 112/72; PULSE 82; RESP 20; TEMP 36.7; O2SAT 99
--- NOTE | 2022-03-17 10:45 | HO.PSYCHPN ---
Subjective Subjective Date of Service: 03/17/22 Reason For Visit: capgrass delusions Interim History: pt reports he feels tired the morning and life insurance underwriter agreed to switch Risperdal to evening time. He says I do not like taking pills. Commercial Or Institutional Cleaner discusses patient's presentation and that he appears to be struggling at home and patient agrees to continue taking them. He remains paranoid about the same issues, and person a prabhakar, sister trying to sell the house. He asks how long he has to stay on the unit and life insurance underwriter explained process but encouraged patient to stay a while longer to help with his struggles with which he agreed. Otherwise he is difficult with which to engage. Patient is eating and sleeping well, showering and attending to ADLs. Mental Status Exam Mental Status Exam Narrative: Pt is alert and oriented; behavior is cooperative, friendly and calm; patient is not in distress; dressed in casual attire, clean cloths, adequate hygiene; mood is described as somethings wrong and affect anxious; eye contact appropriate; Speech is normal rate, volume and prosody and not pressured; no psychomotor agitation/retardation present; thought process is organized and goal directed; Thought content is on anxiety over memory impairment and on paranoid thinking; otherwise pertinent to relevant topics; denies any SI/HI. There is no evidence of perceptual disturbance and he denies AVH. Patients insight and judgment impaired. Diagnostics Vital Signs (24Hr): Vital Signs - 24 hr 03/16/22 18:00 03/17/22 08:39 Temperature 97.6 F 98.1 F Pulse Rate 85 82 Respiratory Rate 16 20 Blood Pressure 128/68 112/72 Pulse Oximetry 98 99 Oxygen Delivery Method Room Air Room Air BMI result Body Mass Index 25.7 Labs 03/12/22 21:36 03/14/22 08:37 Labs: Laboratory Results - last 48 hr 03/15/22 03/15/22 17:06 17:06 TSH 67.72 H Free T4 0.53 L Imaging Radiology Impressions: ITS Impressions Head CT 03/12/22 20:45 IMPRESSION: 1. No acute intracranial pathology. Medications Medications Current Medications Acetaminophen (Acetaminophen 325 Mg Tablet) 650 mg PO Q6H PRN PRN Reason: Headache/Pain Mild Scale (1-3) Al Hydroxide/Mg Hydroxide (Magnesium Hydrox/Alum Hydrox 30 Ml Oral.Susp) 30 ml PO Q6H PRN PRN Reason: Heartburn/Nausea Hydroxyzine HCl (Hydroxyzine Hcl 25 Mg Tablet) 25 mg PO Q6H PRN PRN Reason: Anxiety Levothyroxine Sodium (Levothyroxine Sodium 200 Mcg Tablet) 200 mcg PO DAILY@0630 [facility] Last Admin: 03/17/22 08:36 Dose: 200 mcg Magnesium Hydroxide (Milk Of Magnesia 30 Ml Oral.Susp) 30 ml PO DAILY PRN PRN Reason: Constipation Risperidone (Risperidone 1 Mg Tablet) 1 mg PO BID [facility] Last Admin: 03/17/22 08:36 Dose: 1 mg Trazodone HCl (Trazodone Hcl 50 Mg Tablet) 50 mg PO BEDTIME PRN PRN Reason: Insomnia Allergies Allergies Allergy/AdvReac Type Severity Reaction Status Date / Time amoxicillin [AMOXICILLIN] Allergy Unknown VOMITING/ABD Unverified 11/19/19 19:25 PAIN Assessment & Plan Assessment & Plan (1) Delusional disorder: Status: Acute Code(s): F22 - Delusional disorders (2) Cognitive and behavioral changes: Status: Acute Code(s): R41.89 - Other symptoms and signs involving cognitive functions and awareness; R46.89 - Other symptoms and signs involving appearance and behavior (3) Hypothyroidism: Status: Acute Code(s): E03.9 - Hypothyroidism, unspecified Plan Patient is a 57-year-old male on a 12b with a history of hypothyroid disorder/thyroid coma, stroke and brain aneurysm who presents to the emergency room reportedly after his friends to come to a clinic, concern for his memory impairment, delusional thinking (about people being imposters), not taking medications and poor ADLs. Patient is a poor historian and collateral as necessary to further assess. -He has history of stroke and other comorbidities that could influence cognition. Collateral is necessary to figure out the timelines of his memory impairment and whether it has worsened. Also, will need history from Neurology to see what imaging has been done -patient does have some paranoid delusional thoughts; he is vague about them. He does look moderately disheveled however he does not appear overtly disorganized at this time -significantly elevated TSH; he does say he takes his thyroid medication daily but will need collateral -although he says he scared about his memory impairment, he denies all other psychiatric symptoms. -will consult with endocrinology regarding elevated TSH Commercial Or Institutional Cleaner discussed case with wine sales representative Dr. Alberts. 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 As patient has not been taking levothyroxine, it is recommended to continue at current dose, make sure it by foods and other medications for 2 hours and recheck in a week Otherwise can monitor for vitals, bradycardia, decreased respiratory rate 03/15 Collateral helpful and reveals that he is having psychotic symptoms and is confused, possibly in the face of going off psychiatric medications; sister will try to get a hold of recent medication list; life insurance underwriter did try to call patient's PCP Dr. Hatfield but was unable to connect (ANNETTE Signed). Hypothyroidism due to noncompliance with medication. Memory loss present since stroke 03/16 will start Risperdal 03/17 patient says tired from Risperdal in the morning so will switch to bedtime; remains with paranoid delusions; memory impairment. Very little insight Discussed case with team; discussed with nursing; reviewed vitals and WNL Plan CV Q 15 minute checks 1. Psychotic symptoms/delusions Changed to Risperdal 2 mg q.h.s. -some history of prescribed psychotropic medications: mirtazapine 15 mg, Depakote ER 750 mg -symptoms seem to be worsening over the past 5 months possibly in the face of going off medications -will try to find out more of history and likely prescribe 2. Hypothyroid: Continue levothyroxine 200mcg daily at 06:30 Repeat TSH/free T4 hx of myxedema coma 3. Cognitive disorder s/p stroke 2020: Reportedly present since stroke in 2020 Will likely refer to neurologist Otherwise: Discontinue Levetiracetam: Patient says he has not been on that for almost a year and prescription history seems to support this. He says he does not want and it is to be discontinued. He denies any history of actually having a seizure but says this was started s/p thyroid coma as a prophylactic measure to prevent seizure will continue to Pursue collateral: Ros , patient's sister(ANNETTE signed) Romina, patient's ex- (ANNETTE signed) Patient educated on: diagnosis and medication risk/benefits Informed Consent: understands and further education needed Reason for contiued inpatient stay Substantial Risk for: med/psych decompensation Time Spent With Patient Time: Total time managing care of this patient today ____ minutes.
[2022-03-17 18:00] VITALS: BP 114/81; PULSE 85; RESP 18; TEMP 36.4; O2SAT 97
[2022-03-17] MEDS: risperiDONE 2 MG TABLET PO (20:15)
[2022-03-18] MEDS: Levothyroxine Sodium 200 MCG TABLET PO (08:35)
[2022-03-18 08:39] VITALS: BP 117/75; PULSE 83; RESP 20; TEMP 36.3; O2SAT 99
--- NOTE | 2022-03-18 15:44 | P.PNPSI_ITS ---
Subjective Subjective Date of Service: 03/18/22 Reason For Visit: capgrass delusions Interim History: Patient reports the same; says he does not like taking the medication and says it makes him a little nauseous. He agrees to continue taking it however. Proofer Apprentice discussed restraining order/no trespass order however patient seems unable to grasp that he is not allowed to go back to the house. He keeps saying that it is his house and he wants to go there. Proofer Apprentice posed situation in mul tiple different ways, including illegality and risk of arrest and each time patient would revert back to that he will probably keep going back to the house... it is his house... he does not understand why he can not go back, etc. patient encourage automatic typewriter inspector to call his and said he will do the same. Proofer Apprentice asked if him calling her was a violation of the restraining order and patient said he did not know. Mental Status Exam Mental Status Exam Narrative: Pt is alert and oriented; behavior is cooperative, friendly on approach and calm, but also disorganized, often standing in one place in hallway for extended periods of time; patient is not in distress; dressed in casual attire, clean cloths, adequate hygiene; mood is described as ok affect more blunted; eye contact appropriate; Speech is normal rate, volume and prosody and not pressured; some psychomotor retardation present; thought process is goal directed but concrete; Thought content is on vacuous unless asks and than some anxiety over memory impairment and on paranoid thinking; otherwise pertinent to relevant topics; denies any SI/HI. Does not seem internally preoccupied; and he denies AVH. Patients insight and judgment impaired. Diagnostics Vital Signs (24Hr): Vital Signs - 24 hr 03/17/22 18:00 03/18/22 08:39 Temperature 97.6 F 97.3 F Pulse Rate 85 83 Respiratory Rate 18 20 Blood Pressure 114/81 117/75 Pulse Oximetry 97 99 Oxygen Delivery Method Room Air Room Air BMI result Body Mass Index 25.7 Labs 03/12/22 21:36 03/14/22 08:37 Imaging Radiology Impressions: ITS Impressions Head CT 03/12/22 20:45 IMPRESSION: 1. No acute intracranial pathology. Medications Medications Current Medications Acetaminophen (Acetaminophen 325 Mg Tablet) 650 mg PO Q6H PRN PRN Reason: Headache/Pain Mild Scale (1-3) Al Hydroxide/Mg Hydroxide (Magnesium Hydrox/Alum Hydrox 30 Ml Oral.Susp) 30 ml PO Q6H PRN PRN Reason: Heartburn/Nausea Hydroxyzine HCl (Hydroxyzine Hcl 25 Mg Tablet) 25 mg PO Q6H PRN PRN Reason: Anxiety Levothyroxine Sodium (Levothyroxine Sodium 200 Mcg Tablet) 200 mcg PO DAILY@06 30 [facility] Last Admin: 03/18/22 08:35 Dose: 200 mcg Magnesium Hydroxide (Milk Of Magnesia 30 Ml Oral.Susp) 30 ml PO DAILY PRN PRN Reason: Constipation Risperidone (Risperidone 2 Mg Tablet) 2 mg PO BEDTIME [facility] Last Admin: 03/17/22 20:15 Dose: 2 mg Trazodone HCl (Trazodone Hcl 50 Mg Tablet) 50 mg PO BEDTIME PRN PRN Reason: Insomnia Allergies Allergies Allergy/AdvReac Type Severity Reaction Status Date / Time amoxicillin [AMOXICILLIN] Allergy Unknown VOMITING/ABD Unverified 11/19/19 19:25 PAIN Assessment & Plan Assessment & Plan (1) Cognitive and behavioral changes: Status: Acute Code(s): R41.89 - Other symptoms and signs involving cognitive functions and awareness; R46.89 - Other symptoms and signs involving appearance and behavior (2) Delusional disorder: Status: Acute Code(s): F22 - Delusional disorders (3) Hypothyroidism: Status: Acute Code(s): E03.9 - Hypothyroidism, unspecified Plan Patient is a 57-year-old male on a 12b with a history of hypothyroid disorder/thyroid coma, stroke and brain aneurysm who presents to the emergency room reportedly after his friends to come to a clinic, concern for his memory impairment, delusional thinking (about people being imposters), not taking medications and poor ADLs. Patient is a poor historian and collateral as necessary to further assess. -He has history of stroke and other comorbidities that could influence cognition. Collateral is necessary to figure out the timelines of his memory impairment and whether it has worsened. Also, will need history from Neurology to see what imaging has been done -patient does have some paranoid delusional thoughts; he is vague about them. He does look moderately disheveled however he does not appear overtly dis organized at this time -significantly elevated TSH; he does say he takes his thyroid medication daily but will need collateral -although he says he scared about his memory impairment, he denies all other psychiatric symptoms. -will consult with endocrinology regarding elevated TSH Proofer Apprentice discussed case with glass checker Dr. Alberts. 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 As patient has not been taking levothyroxine, it is recommended to continue at current dose, make sure it by foods and other medications for 2 hours and recheck in a week Otherwise can monitor for vitals, bradycardia, decreased respiratory rate 03/15 Collateral helpful and reveals that he is having psychotic symptoms and is confused, possibly in the face of going off psychiatric medications; sister will try to get a hold of recent medication list; automatic typewriter inspector did try to call patient's PCP Dr. Hatfield but was unable to connect (ANNETTE Signed). Hypothyroidism due to noncompliance with medication. Memory loss present since stroke 03/16 will start Risperdal 03/17 patient says tired from Risperdal in the morning so will switch to bedtime; remains with paranoid delusions; memory impairment. Very little insight Discussed case with team; discussed with nursing; reviewed vitals and WNL 03/18 no change in presentation; not open to further med changes. Patient used to be on Depakote but does not want to take it and refuses it Will need to discuss further with team. Patient seems to have memory impairment/cognitive dysfunction present since his stroke 2 years ago, Which acc ording to collateral has not necessarily worsened. Patient also has some has paranoid delusional thinking. Seems to be a combination of both cognitive dysfunction and delusional thinking that brings him back to his house and violating restraining order. Patient is not currently under the care of a neurologist; automatic typewriter inspector discussed this with him any agrees to go, however his sister says he typically has no interest in doctor's appointments or medication. Patient lives at his sister's who cares for his needs; he has no history of violence or aggression towards anyone and is without any SI or HI. 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 Although patient is not in imminent risk for harm to himself or others, he risks getting arrested in prosecuted for violating restraining order. Need to talk with patient's ; will discuss further with team. -Discussed case with nursing; reviewed vitals and WNL Plan CV Q 15 minute checks 1. Psychotic symptoms/delusions continue Risperdal 2 mg q.h.s. -some history of prescribed psychotropic medications: mirtazapine 15 mg, Depakote ER 750 mg -symptoms seem to be worsening over the past 5 months possibly in the face of going off medications -will try to find out more of history and likely prescribe 2. Hypothyroid: Continue levothyroxine 200mcg daily at 06:30 Repeat TSH/free T4 hx of myxedema coma 3. Cognitive disorder s/p stroke 2020: Reportedly present since stroke in 2020 Will likely refer to neurologist Otherwise: Discontinue Levetiracetam: Patient says he has not been on that for almost a year and prescription history seems to support this. He says he does not want and it is to be discontinued. He denies any history of actually having a seizure but says this was started s/p thyroid coma as a prophylactic measure to prevent seizure will continue to Pursue collateral: Ros , patient's sister(ANNETTE signed) Romina, patient's ex- (ANNETTE signed) Patient educated on: diagnosis and medical condition Informed Consent: does not understand and further education needed Reason for contiued inpatient stay Substantial Risk for: med/psych decompensation Time Spent With Patient Time: Total time managing care of this patient today ____ minutes.
[2022-03-18 16:11] VITALS: BP 102/70; PULSE 95; RESP 16; TEMP 36.2; O2SAT 98
[2022-03-18] MEDS: risperiDONE 2 MG TABLET PO (19:54)
[2022-03-19] MEDS: Levothyroxine Sodium 200 MCG TABLET PO (06:24)
[2022-03-19 07:57] VITALS: BP 105/58; PULSE 90; RESP 16; TEMP 36.9; O2SAT 97
--- NOTE | 2022-03-19 09:28 | HO.PSYCHPN ---
Subjective Subjective Date of Service: 03/19/22 Reason For Visit: capgrass delusions Interim History: Patient discussed in teams with social Work and nursing; insurance underwriter called patient's estranged , Romina, multiple times in left voicemail Patient remains difficult with which to engage. To most questions he says I do not know. Patient remains with paranoid delusional beliefs that family members are often imposters; believes that his is in jeopardy, has strange people living at the house. Patient remains unable to grasp that he is not allowed to go to the house of his estranged , despite insurance underwriter discussing his recent arrests for having violated police order. Patient refused to increase Risperdal at this time. He asked about discharge but was amenable to staying on the unit for longer. Elevator Erector Helper asked about restraining order and he said it was because he texted his something upsetting however he said he did not remember what it was. Elevator Erector Helper asked about past hospital stays and he said it was for suicide thinking and an attempt however patient says he does not remember what the attempt was He remains mostly standing in 1 place looking around, engaging little with others. Eating, drinking, sleeping well enough; attending to ADLs Mental Status Exam Mental Status Exam Narrative: Pt is alert and oriented; behavior is cooperative, friendly enough on approach and calm, but also disorganized, often standing in one place in hallway for extended periods of time; patient is not in distress; dressed in casual attire, clean cloths, adequate hygiene; mood is described as ok affect blunted; eye contact appropriate; Speech is normal rate, volume and prosody and not pressured; some psychomotor retardation present; thought process is goal directed but concrete; Thought content is on paranoid delusions; some anxiety over memory impairment; he is able to be pertinent to relevant topics when asked; denies any SI/HI. Does not seem internally preoccupied; and he denies AVH. Memory impairment significant Patients insight and judgment impaired. Diagnostics Vital Signs (24Hr): Vital Signs - 24 hr 03/18/22 16:11 03/19/22 07:57 Temperature 97.2 F 98.4 F Pulse Rate 95 90 Respiratory Rate 16 16 Blood Pressure 102/70 105/58 L Pulse Oximetry 98 97 Oxygen Delivery Method Room Air Room Air BMI result Body Mass Index 25.7 Labs 03/12/22 21:36 03/14/22 08:37 Imaging Radiology Impressions: ITS Impressions Head CT 03/12/22 20:45 IMPRESSION: 1. No acute intracranial pathology. Medications Medications Current Medications Acetaminophen (Acetaminophen 325 Mg Tablet) 650 mg PO Q6H PRN PRN Reason: Headache/Pain Mild Scale (1-3) Al Hydroxide/Mg Hydroxide (Magnesium Hydrox/Alum Hydrox 30 Ml Oral.Susp) 30 ml PO Q6H PRN PRN Reason: Heartburn/Nausea Hydroxyzine HCl (Hydroxyzine Hcl 25 Mg Tablet) 25 mg PO Q6H PRN PRN Reason: Anxiety Levothyroxine Sodium (Levothyroxine Sodium 200 Mcg Tablet) 200 mcg PO DAILY@0630 [facility] Last Admin: 03/19/22 06:24 Dose: 200 mcg Magnesium Hydroxide (Milk Of Magnesia 30 Ml Oral.Susp) 30 ml PO DAILY PRN PRN Reason: Constipation Risperidone (Risperidone 2 Mg Tablet) 2 mg PO BEDTIME [facility] Last Admin: 03/18/22 19:54 Dose: 2 mg Trazodone HCl (Trazodone Hcl 50 Mg Tablet) 50 mg PO BEDTIME PRN PRN Reason: Insomnia Allergies Allergies Allergy/AdvReac Type Severity Reaction Status Date / Time amoxicillin [AMOXICILLIN] Allergy Unknown VOMITING/ABD Unverified 11/19/19 19:25 PAIN Assessment & Plan Assessment & Plan (1) Cognitive and behavioral changes: Status: Acute Code(s): R41.89 - Other symptoms and signs involving cognitive functions and awareness; R46.89 - Other symptoms and signs involving appearance and behavior (2) Delusional disorder: Status: Acute Code(s): F22 - Delusional disorders (3) Hypothyroidism: Status: Acute Code(s): E03.9 - Hypothyroidism, unspecified Plan Patient is a 57-year-old male on a 12b with a history of hypothyroid disorder/thyroid coma, stroke and brain aneurysm who presents to the emergency room reportedly after his friends to come to a clinic, concern for his memory impairment, delusional thinking (about people being imposters), not taking medications and poor ADLs. Patient is a poor historian and collateral as necessary to further assess. -He has history of stroke and other comorbidities that could influence cognition. Collateral is necessary to figure out the timelines of his memory impairment and whether it has worsened. Also, will need history from Neurology to see what imaging has been done -patient does have some paranoid delusional thoughts; he is vague about them. He does look moderately disheveled however he does not appear overtly disorganized at this time -significantly elevated TSH; he does say he takes his thyroid medication daily but will need collateral -although he says he scared about his memory impairment, he denies all other psychiatric symptoms. -will consult with endocrinology regarding elevated TSH Elevator Erector Helper discussed case with court recording monitor Dr. Alberts. 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 As patient has not been taking levothyroxine, it is recommended to continue at current dose, make sure it by foods and other medications for 2 hours and recheck in a week Otherwise can monitor for vitals, bradycardia, decreased respiratory rate 03/15 Collateral helpful and reveals that he is having psychotic symptoms and is confused, possibly in the face of going off psychiatric medications; sister will try to get a hold of recent medication list; insurance underwriter did try to call patient's PCP Dr. Hatfield but was unable to connect (ANNETTE Signed). Hypothyroidism due to noncompliance with medication. Memory loss present since stroke 03/16 will start Risperdal 03/17 patient says tired from Risperdal in the morning so will switch to bedtime; remains with paranoid delusions; memory impairment. Very little insight Discussed case with team; discussed with nursing; reviewed vitals and WNL 03/18 no change in presentation; not open to further med changes. Patient used to be on Depakote but does not want to take it and refuses it Will need to discuss further with team. Patient seems to have memory impairment/cognitive dysfunction present since his stroke 2 years ago, Which according to collateral has not necessarily worsened. Patient also has some has paranoid delusional thinking. Seems to be a combination of both cognitive dysfunction and delusional thinking that brings him back to his house and violating restraining order. Patient is not currently under the care of a neurologist; insurance underwriter discussed this with him any agrees to go, however his sister says he typically has no interest in doctor's appointments or medication. Patient lives at his sister's who cares for his needs; he has no history of violence or aggression towards anyone and is without any SI or HI. 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 Although patient is not in imminent risk for harm to himself or others, he risks getting arrested in prosecuted for violating restraining order. Need to talk with patient's ; will discuss further with team. -Discussed case with nursing; reviewed vitals and WNL 03/19 patient remains with paranoid delusions and without insight; he plans to continue going back to the house since in his mind, it is his house. Disorganized behavior in that he will stand [address] for long periods of time not engaging with others. Says he feels a little tired from the Risperdal but continues to take it. He says he will likely not take it once discharged. Plan CV Q 15 minute checks 1. Psychotic symptoms/delusions continue Risperdal 2 mg q.h.s. -some history of prescribed psychotropic medications: mirtazapine 15 mg, Depakote ER 750 mg -symptoms seem to be worsening over the past 5 months possibly in the face of going off medications -will try to find out more of history and likely prescribe 2. Hypothyroid: Continue levothyroxine 200mcg daily at 06:30 Repeat TSH/free T4 hx of myxedema coma 3. Cognitive disorder s/p stroke 2020: Reportedly present since stroke in 2020 Will likely refer to neurologist Otherwise: Discontinue Levetiracetam: Patient says he has not been on that for almost a year and prescription history seems to support this. He says he does not want and it is to be discontinued. He denies any history of actually having a seizure but says this was started s/p thyroid coma as a prophylactic measure to prevent seizure will continue to Pursue collateral: Ros , patient's sister(ANNETTE signed) Romina, patient's ex- (ANNETTE signed) Patient educated on: diagnosis and medication risk/benefits Informed Consent: does not understand Reason for contiued inpatient stay Substantial Risk for: inability to function and rapid decompensation Time Spent With Patient Time: Total time managing care of this patient today ____ minutes.
[2022-03-19 21:20] VITALS: BP 128/73; PULSE 93; TEMP 36.3
[2022-03-19] MEDS: risperiDONE 2 MG TABLET PO (21:27)
[2022-03-20] MEDS: Levothyroxine Sodium 200 MCG TABLET PO (07:07)
[2022-03-20 10:15] VITALS: BP 110/60; PULSE 101; RESP 18; TEMP 36.2; O2SAT 99
[2022-03-20 16:45] VITALS: BP 115/74; PULSE 84; TEMP 36.3
[2022-03-20] MEDS: risperiDONE 2 MG TABLET PO (22:16)
--- NOTE | 2022-03-20 23:49 | HO.PSYCHPN ---
Subjective Subjective Date of Service: 03/20/22 Reason For Visit: capgrass delusions Interim History: Patient discussed in teams; discussed case with Dr. Gonzalez who agrees with plan for MRI and neurology consult; discussed case with patient's strange Romina provided significant collateral Met with patient. No change in presentation. He remains without insight and with paranoid delusions regarding imposters and regarding his and her home. Patient was surprised to hear that Romina has been frightened by him coming over and that she wants him to stop. He said he does not want to frighten her. However he could not say he will stop going over there mentioning vague concerns about his ; patient said a does not bother him that he got arrested. Patient agreed to go up on Risperdal and does however he said he is not going to take it once he leaves the hospital. He also agreed to getting an MRI. Facilities Maintenance Manager talked with Romina, patient's estranged (ANNETTE signed): Romina reports that up until around 2020 when he had his coma and mini strokes, patient was is regular self without any overt psychiatric symptoms; only on automotive service writer's further inquiry did she say there was maybe some intermittent, minimal/mild paranoia. 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 She says afterwards he had some rehab and some memory impairment but nowhere near as significant as it is now. She says over the next 6 months his memory problems worsened. At some point they and he went to live with his sister. She says that for the past 8 months his memory has continued to deteriorate. For the past year he has been calling her around 50 or 60 times a day and would send constant text messages all day long. Would frequently show up at her house (she reports the house is fully hers, in her name). She continues to care about him and hope that he would eventually stop coming over as she continually explained that their relationship was over. Once, she let him into the house to see his nephew but then he would not leave an she said it took enormous effort to get him out the door. Since then she has not let him in the house. Despite this, he kept coming over to the house daily, knocking for hours at a time. She knew patient was struggling and did not want him to add to his troubles and so hesitated to call the police. However patient continued to come over and then actually started trying to get into the house, once using a credit card. He would call her daughter and say he standing outside the house. Patient would also stand for hours and front of the house. Romina started to get scared. He tried to get into the house about 3 weeks ago, she call the police who issued a no trespassing order. He violated the order, was arrested and taken to [facility] care home for couple days; immediately on release he would back to the house and got arrested again. Released again, he went over to the house and stood outside of it. Last week, just before this admission, send a text message to Romina that said she is not going to make it out alive. After this the operations manager assistant put a restraining order on patient. He continued to violated, stating outside her house for hours; he left his sister's house and stayed at a friend's house near [place] and for hours and hours, in the rain, in the snow would boiling house oiler front of her house, only going to his friend's house to sleep for a few hours and then to repeat the next day. Romina says this is what resulted in this admission. She says he accuses her of being an imposter on the phone; after interacting with the police he'll say they are not real cycle consultant, they are scammers... She reiterates that he is getting scary and that she is now scared of him. She is relieved to know that is in the hospital in hopes he can get help. Mental Status Exam Mental Status Exam Narrative: Pt is alert and oriented; behavior is cooperative, friendly enough on approach and calm, but also disorganized, often standing in one place in hallway for extended periods of time; patient is not in distress; dressed in casual attire, clean cloths, adequate hygiene; mood is described as ok affect blunted; eye contact appropriate; Speech is normal rate, volume and prosody and not pressured; some psychomotor retardation present; thought process is goal directed but concrete; Thought content is on paranoid delusions; some anxiety over memory impairment; he is able to be pertinent to relevant topics when asked; denies any SI/HI. Does not seem internally preoccupied; and he denies AVH. Memory impairment significant Patients insight and judgment impaired. Diagnostics Vital Signs (24Hr): Vital Signs - 24 hr 03/20/22 10:15 03/20/22 16:45 Temperature 97.1 F 97.4 F Pulse Rate 101 H 84 Respiratory Rate 18 Blood Pressure 110/60 115/74 Pulse Oximetry 99 Oxygen Delivery Method Room Air BMI result Body Mass Index 25.7 Labs 03/12/22 21:36 03/14/22 08:37 Imaging Radiology Impressions: ITS Impressions Head CT 03/12/22 20:45 IMPRESSION: 1. No acute intracranial pathology. Medications Medications Current Medications Acetaminophen (Acetaminophen 325 Mg Tablet) 650 mg PO Q6H PRN PRN Reason: Headache/Pain Mild Scale (1-3) Al Hydroxide/Mg Hydroxide (Magnesium Hydrox/Alum Hydrox 30 Ml Oral.Susp) 30 ml PO Q6H PRN PRN Reason: Heartburn/Nausea Hydroxyzine HCl (Hydroxyzine Hcl 25 Mg Tablet) 25 mg PO Q6H PRN PRN Reason: Anxiety Levothyroxine Sodium (Levothyroxine Sodium 200 Mcg Tablet) 200 mcg PO DAILY@0630 [facility] Last Admin: 03/20/22 07:07 Dose: 200 mcg Magnesium Hydroxide (Milk Of Magnesia 30 Ml Oral.Susp) 30 ml PO DAILY PRN PRN Reason: Constipation Risperidone (Risperidone 2 Mg Tablet) 2 mg PO BEDTIME [facility] Last Admin: 03/20/22 22:16 Dose: 2 mg Trazodone HCl (Trazodone Hcl 50 Mg Tablet) 50 mg PO BEDTIME PRN PRN Reason: Insomnia Allergies Allergies Allergy/AdvReac Type Severity Reaction Status Date / Time amoxicillin [AMOXICILLIN] Allergy Unknown VOMITING/ABD Unverified 11/19/19 19:25 PAIN Assessment & Plan Assessment & Plan (1) Cognitive and behavioral changes: Status: Acute Code(s): R41.89 - Other symptoms and signs involving cognitive functions and awareness; R46.89 - Other symptoms and signs involving appearance and behavior (2) Delusional disorder: Status: Acute Code(s): F22 - Delusional disorders (3) Hypothyroidism: Status: Acute Code(s): E03.9 - Hypothyroidism, unspecified Plan HPI: Patient is a 57-year-old male on a 12b with a history of hypothyroid disorder/thyroid coma, stroke and brain aneurysm who presents to the emergency room reportedly after his friends to come to a clinic, concern for his memory impairment, delusional thinking (about people being imposters), not taking medications and poor ADLs. Patient is a poor historian and collateral as necessary to further assess. -He has history of stroke and other comorbidities that could influence cognition. Collateral is necessary to figure out the timelines of his memory impairment and whether it has worsened. Also, will need history from Neurology to see what imaging has been done -patient does have some paranoid delusional thoughts; he is vague about them. He does look moderately disheveled however he does not appear overtly disorganized at this time -significantly elevated TSH; he does say he takes his thyroid medication daily but will need collateral -although he says he scared about his memory impairment, he denies all other psychiatric symptoms. -will consult with endocrinology regarding elevated TSH Hospital course: 03/15 Collateral helpful and reveals that he is having psychotic symptoms and is confused, possibly in the face of going off psychiatric medications; sister will try to get a hold of recent medication list; automotive service writer did try to call patient's PCP Dr. Hatfield but was unable to connect (ANNETTE Signed). Hypothyroidism due to noncompliance with medication. Memory loss present since stroke 03/16 will start Risperdal 03/17 patient says tired from Risperdal in the morning so will switch to bedtime; remains with paranoid delusions; memory impairment. Very little insight Discussed case with team; discussed with nursing; reviewed vitals and WNL 03/18 no change in presentation; not open to further med changes. Patient used to be on Depakote but does not want to take it and refuses it Will need to discuss further with team. Patient seems to have memory impairment/cognitive dysfunction present since his stroke 2 years ago, Which according to collateral has not necessarily worsened. Patient also has some has paranoid delusional thinking. Seems to be a combination of both cognitive dysfunction and delusional thinking that brings him back to his house and violating restraining order. Patient is not currently under the care of a neurologist; automotive service writer discussed this with him any agrees to go, however his sister says he typically has no interest in doctor's appointments or medication. Patient lives at his sister's who cares for his needs; he has no history of violence or aggression towards anyone and is without any SI or HI. 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 Although patient is not in imminent risk for harm to himself or others, he risks getting arrested in prosecuted for violating restraining order. Need to talk with patient's ; will discuss further with team. -Discussed case with nursing; reviewed vitals and WNL 03/19 patient remains with paranoid delusions and without insight; he plans to continue going back to the house since in his mind, it is his house. Disorganized behavior in that he will stand [address] for long periods of time not engaging with others. Says he feels a little tired from the Risperdal but continues to take it. He says he will likely not take it once discharged. 03/20 patient remains without insight and has paranoid delusions. Now having received collateral from his estranged Romina, it is more clear that patient's behaviors in the community are threatening. Romian is now scared of him. He has tried to break into his estranged 's house, has violated and no trespass order multiple times and has been subsequently arrested; the week prior to this admission, a Restraining order was enacted following a text patient sent to Romina which said she is not going to make it out alive. Patient than violated this restraining order. Patient has very little to no insight regarding his behaviors. Patient intends to continue going back to the house since he thinks it is his house and has paranoid, delusional concerns about his . Patient says he will not take medication once he leaves. At this time, patient is not safe for discharge. -will get Neurology consult (will hold off on MRI for neuro recs) -[facility] -[facility] pending FORMULATION/IMPRESSION: Patient is a 57-year-old male with no psychiatric history prior to 2020. 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 Over the past 6-8 months, patient's memory and cognitive function has significantly worsened; patient has developed paranoid delusions and is without insight. Due to a combination of paranoid delusional thinking and cognitive impairment, Patient has been increasingly harassing his estranged . The harassment has worsened and over the past few weeks and patient's estranged is now afraid: he has tried to break into her house, violated a no trespass order, sent a cryptic, threatening text message and has violated a restraining order. Patient does not seem to have any insight that his behaviors are harassing or frightening or that he is operating from paranoid delusions. It seems likely there is some relationship between between patient's paranoid delusions, his cognitive decline and history of either aneurysm/stroke/coma, given the clear timeline. Patient needs further workup with help from Neurology to better assess. At this time patient remains unsafe to be in the community and requires inpatient level of care for treatment and containment for safety and medication management. Plan CV Q 15 minute checks 1. Psychotic symptoms/delusions 2/2 to medical illness (aneurysm/stroke...) vs organic etiology Increase to Risperdal 3 mg q.h.s. Neurology consult Will get [facility] Concern that patient may need a guardian -Records pending: need more detailed history of aneurysm/stroke/coma as reports are all from non clinicians and without pertinent details -some history of prescribed psychotropic medications: mirtazapine 15 mg, Depakote ER 750 mg -symptoms seem to be worsening over the past 5 months (it now seems less likely that patient was adherent with medications) 2. Cognitive disorder s/p stroke, brain aneurysm, myxedema coma? All in 2020: Reportedly present since stroke in 2020 -neurology consult 3. Hypothyroid: Continue levothyroxine 200mcg daily at 06:30 discussed with grades [address] Alberts; appreciate recommendations hx of myxedema coma Otherwise: Discontinue Levetiracetam: Patient says he has not been on that for almost a year and prescription history seems to support this. He says he does not want and it is to be discontinued. He denies any history of actually having a seizure but says this was started s/p thyroid coma as a prophylactic measure to prevent seizure Facilities Maintenance Manager talked with Romina, patient's estranged (ANNETTE signed): Romina reports that up until around 2020 when he had his coma and mini strokes, patient was is regular self without any overt psychiatric symptoms; only on automotive service writer's further inquiry did she say there was maybe some intermittent, minimal/mild paranoia. 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 She says afterwards he had some rehab and some memory impairment but nowhere near as significant as it is now. She says over the next 6 months his memory problems worsened. At some point they and he went to live with his sister. She says that for the past 8 months his memory has continued to deteriorate. For the past year he has been calling her around 50 or 60 times a day and would send constant text messages all day long. Would frequently show up at her house (she reports the house is fully hers, in her name). She continues to care about him and hope that he would eventually stop coming over as she continually explained that their relationship was over. Once, she let him into the house to see his nephew but then he would not leave an she said it took enormous effort to get him out the door. Since then she has not let him in the house. Despite this, he kept coming over to the house daily, knocking for hours at a time. She knew patient was struggling and did not want him to add to his troubles and so hesitated to call the police. However patient continued to come over and then actually started trying to get into the house, once using a credit card. He would call her daughter and say he standing outside the house. Patient would also stand for hours and front of the house. Romina started to get scared. He tried to get into the house about 3 weeks ago, she call the police who issued a no trespassing order. He violated the order, was arrested and taken to [facility] for couple days; immediately on release he would back to the house and got arrested again. Released again, he went over to the house and stood outside of it. Last week, just before this admission, send a text message to Romina that said she is not going to make it out alive. After this the operations manager assistant put a restraining order on patient. He continued to violated, stating outside her house for hours; he left his sister's house and stayed at a friend's house near [place] and for hours and hours, in the rain, in the snow would boiling house oiler front of her house, only going to his friend's house to sleep for a few hours and then to repeat the next day. Romina says this is what resulted in this admission. She says he accuses her of being an imposter on the phone; after interacting with the police he'll say they are not real cycle consultant, they are scammers... She reiterates that he is getting scary and that she is now scared of him. She is relieved to know that is in the hospital in hopes he can get help. Regarding history of psychiatric admissions, Romina says that patient was admitted to a psychiatric hospital at least 2 times following suicide attempts, which also occurred soon after his aneurysm/stroke/coma. She says the the 1st attempt (not necessarily resulting in admission) was an intentional overdose from a bottle of pills. Second attempt was attempt to hang himself. Third attempt patient tried to cut his neck with a circular saw. Patient was admitted; required stitches only Of note, 's reporting corroborates with both patient's sister and with patient's own account Patient educated on: diagnosis, medication risk/benefits, therapeutic strategies and medical condition Informed Consent: does not understand Reason for contiued inpatient stay Substantial Risk for: harm to others and inability to function Time Spent With Patient Time: Total time managing care of this patient today ____ minutes.
[2022-03-21] MEDS: Levothyroxine Sodium 200 MCG TABLET PO (08:42)
[2022-03-21 08:43] VITALS: BP 126/66; PULSE 98; RESP 18; TEMP 36; O2SAT 100
--- NOTE | 2022-03-21 12:50 | HO.PSYCHPN ---
Subjective Subjective Date of Service: 03/21/22 Reason For Visit: capgrass delusions Interim History: pt tearful when describing how difficult life is now with such memory loss and confusion. Talking about returning to his 's house (no longer his), despite no trespass/restraining order, pt says i've lived there for so long... He tries to explain that the memory of living there seems to draw him back...though he also has delusional ideas about the house and his . Pt feels very lost. Pt says it's hard to make decisions, including what to eat; he gave an example that his sister will ask him what he wants for breakfast and he just won't know and sit there, not knowing. He agrees to Neuro consult. Carton Counter Feeder discussed case with neurologist. Mental Status Exam Mental Status Exam Narrative: Pt is alert and oriented; behavior is cooperative, friendly enough on approach and calm, but also disorganized, often standing in one place in hallway for extended periods of time; patient is not in distress; dressed in casual attire, clean cloths, adequate hygiene; mood is described as ok affect blunted; eye contact appropriate; Speech is normal rate, volume and prosody and not pressured; some psychomotor retardation present; thought process is goal directed but concrete; Thought content is on paranoid delusions; some anxiety over memory impairment; he is able to be pertinent to relevant topics when asked; denies any SI/HI. Does not seem internally preoccupied; and he denies AVH. Memory impairment significant Patients insight and judgment impaired. Diagnostics Vital Signs (24Hr): Vital Signs - 24 hr 03/20/22 16:45 03/21/22 08:43 Temperature 97.4 F 96.8 F Pulse Rate 84 98 Respiratory Rate 18 Blood Pressure 115/74 126/66 Pulse Oximetry 100 Oxygen Delivery Method Room Air BMI result Body Mass Index 25.7 Labs 03/12/22 21:36 03/14/22 08:37 Imaging Radiology Impressions: ITS Impressions Head CT 03/12/22 20:45 IMPRESSION: 1. No acute intracranial pathology. Medications Medications Current Medications Acetaminophen (Acetaminophen 325 Mg Tablet) 650 mg PO Q6H PRN PRN Reason: Headache/Pain Mild Scale (1-3) Al Hydroxide/Mg Hydroxide (Magnesium Hydrox/Alum Hydrox 30 Ml Oral.Susp) 30 ml PO Q6H PRN PRN Reason: Heartburn/Nausea Hydroxyzine HCl (Hydroxyzine Hcl 25 Mg Tablet) 25 mg PO Q6H PRN PRN Reason: Anxiety Levothyroxine Sodium (Levothyroxine Sodium 200 Mcg Tablet) 200 mcg PO DAILY@0630 MANAS Last Admin: 03/21/22 08:42 Dose: 200 mcg Magnesium Hydroxide (Milk Of Magnesia 30 Ml Oral.Susp) 30 ml PO DAILY PRN PRN Reason: Constipation Risperidone (Risperidone 3 Mg Tablet) 3 mg PO BEDTIME MANAS Trazodone HCl (Trazodone Hcl 50 Mg Tablet) 50 mg PO BEDTIME PRN PRN Reason: Insomnia Allergies Allergies Allergy/AdvReac Type Severity Reaction Status Date / Time amoxicillin [AMOXICILLIN] Allergy Unknown VOMITING/ABD Unverified 11/19/19 19:25 PAIN Assessment & Plan Assessment & Plan (1) Cognitive and behavioral changes: Status: Acute Code(s): R41.89 - Other symptoms and signs involving cognitive functions and awareness; R46.89 - Other symptoms and signs involving appearance and behavior (2) Delusional disorder: Status: Acute Code(s): F22 - Delusional disorders (3) Hypothyroidism: Status: Acute Code(s): E03.9 - Hypothyroidism, unspecified Plan HPI: Patient is a 57-year-old male on a 12b with a history of hypothyroid disorder/thyroid coma, stroke and brain aneurysm who presents to the emergency room reportedly after his friends to come to a clinic, concern for his memory impairment, delusional thinking (about people being imposters), not taking medications and poor ADLs. Patient is a poor historian and collateral as necessary to further assess. -He has history of stroke and other comorbidities that could influence cognition. Collateral is necessary to figure out the timelines of his memory impairment and whether it has worsened. Also, will need history from Neurology to see what imaging has been done -patient does have some paranoid delusional thoughts; he is vague about them. He does look moderately disheveled however he does not appear overtly disorganized at this time -significantly elevated TSH; he does say he takes his thyroid medication daily but will need collateral -although he says he scared about his memory impairment, he denies all other psychiatric symptoms. -will consult with endocrinology regarding elevated TSH Hospital course: 03/15 Collateral helpful and reveals that he is having psychotic symptoms and is confused, possibly in the face of going off psychiatric medications; sister will try to get a hold of recent medication list; telegraphic typewriter mechanic did try to call patient's PCP Dr. Hatfield but was unable to connect (ANNETTE Signed). Hypothyroidism due to noncompliance with medication. Memory loss present since stroke 03/16 will start Risperdal 03/17 patient says tired from Risperdal in the morning so will switch to bedtime; remains with paranoid delusions; memory impairment. Very little insight Discussed case with team; discussed with nursing; reviewed vitals and WNL 03/18 no change in presentation; not open to further med changes. Patient used to be on Depakote but does not want to take it and refuses it Will need to discuss further with team. Patient seems to have memory impairment/cognitive dysfunction present since his stroke 2 years ago, Which according to collateral has not necessarily worsened. Patient also has some has paranoid delusional thinking. Seems to be a combination of both cognitive dysfunction and delusional thinking that brings him back to his house and violating restraining order. Patient is not currently under the care of a neurologist; telegraphic typewriter mechanic discussed this with him any agrees to go, however his sister says he typically has no interest in doctor's appointments or medication. Patient lives at his sister's who cares for his needs; he has no history of violence or aggression towards anyone and is without any SI or HI. 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 Although patient is not in imminent risk for harm to himself or others, he risks getting arrested in prosecuted for violating restraining order. Need to talk with patient's ; will discuss further with team. -Discussed case with nursing; reviewed vitals and WNL 03/19 patient remains with paranoid delusions and without insight; he plans to continue going back to the house since in his mind, it is his house. Disorganized behavior in that he will stand [address] for long periods of time not engaging with others. Says he feels a little tired from the Risperdal but continues to take it. He says he will likely not take it once discharged. 03/20 patient remains without insight and has paranoid delusions. Now having received collateral from his estranged Romina, it is more clear that patient's behaviors in the community are threatening. Romina is now scared of him. He has tried to break into his 1/estranged 's house, has violated and no trespass order multiple times and has been subsequently arrested; the week prior to this admission, a Restraining order was enacted following a text patient sent to [place] which said she is not going to make it out alive. Patient than violated this restraining order. Patient has very little to no insight regarding his behaviors. Patient intends to continue going back to the house since he thinks it is his house and has paranoid, delusional concerns about his . Patient says he will not take medication once he leaves. At this time, patient is not safe for discharge. 03/21 no change; neuro consult pending Shannon FORMULATION/IMPRESSION: Patient is a 57-year-old male with no psychiatric history prior to 2020. 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 Over the past 6-8 months, patient's memory and cognitive function has significantly worsened; patient has developed paranoid delusions and is without insight. Due to a combination of paranoid delusional thinking and cognitive impairment, Patient has been increasingly harassing his estranged . The harassment has worsened and over the past few weeks and patient's estranged is now afraid: he has tried to break into her house, violated a no trespass order, sent a cryptic, threatening text message and has violated a restraining order. Patient does not seem to have any insight that his behaviors are harassing or frightening or that he is operating from paranoid delusions. It seems likely there is some relationship between between patient's paranoid delusions, his cognitive decline and history of either aneurysm/stroke/coma, given the clear timeline. Patient needs further workup with help from Neurology to better assess. At this time patient remains unsafe to be in the community and requires inpatient level of care for treatment and containment for safety and medication management. Plan CV Q 15 minute checks 1. Psychotic symptoms/delusions 2/2 to medical illness (aneurysm/stroke...) vs organic etiology Increase to Risperdal 3 mg q.h.s. Neurology consult Shannon Concern that patient may need a guardian -Records pending: need more detailed history of aneurysm/stroke/coma as reports are all from non clinicians and without pertinent details -some history of prescribed psychotropic medications: mirtazapine 15 mg, Depakote ER 750 mg -symptoms seem to be worsening over the past 5 months (it now seems less likely that patient was adherent with medications) 2. Cognitive disorder s/p stroke, brain aneurysm, myxedema coma? All in 2020: Reportedly present since stroke in 2020 -neurology consult 3. Hypothyroid: Continue levothyroxine 200mcg daily at 06:[address] engineers [address] Alberts; appreciate recommendations hx of myxedema coma Otherwise: Discontinue Levetiracetam: Patient says he has not been on that for almost a year and prescription history seems to support this. He says he does not want and it is to be discontinued. He denies any history of actually having a seizure but says this was started s/p thyroid coma as a prophylactic measure to prevent seizure Carton Counter Feeder talked with Romina, patient's estranged (ANNETTE signed): Romina reports that up until around 2020 when he had his coma and mini strokes, patient was is regular self without any overt psychiatric symptoms; only on telegraphic typewriter mechanic's further inquiry did she say there was maybe some intermittent, minimal/mild paranoia. 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 She says afterwards he had some rehab and some memory impairment but nowhere near as significant as it is now. She says over the next 6 months his memory problems worsened. At some point they and he went to live with his sister. She says that for the past 8 months his memory has continued to deteriorate. For the past year he has been calling her around 50 or 60 times a day and would send constant text messages all day long. Would frequently show up at her house (she reports the house is fully hers, in her name). She continues to care about him and hope that he would eventually stop coming over as she continually explained that their relationship was over. Once, she let him into the house to see his nephew but then he would not leave an she said it took enormous effort to get him out the door. Since then she has not let him in the house. Despite this, he kept coming over to the house daily, knocking for hours at a time. She knew patient was struggling and did not want him to add to his troubles and so hesitated to call the police. However patient continued to come over and then actually started trying to get into the house, once using a credit card. He would call her daughter and say he standing outside the house. Patient would also stand for hours and front of the house. Romina started to get scared. He tried to get into the house about 3 weeks ago, she call the police who issued a no trespassing order. He violated the order, was arrested and taken to [facility] for couple days; immediately on release he would back to the house and got arrested again. Released again, he went over to the house and stood outside of it. Last week, just before this admission, send a text message to Romina that said she is not going to make it out alive. After this the jigger machine operator put a restraining order on patient. He continued to violated, stating outside her house for hours; he left his sister's house and stayed at a friend's house near Romina and for hours and hours, in the rain, in the snow would bingo manager front of her house, only going to his friend's house to sleep for a few hours and then to repeat the next day. Romina says this is what resulted in this admission. She says he accuses her of being an imposter on the phone; after interacting with the police he'll say they are not real glass embosser, they are scammers... She reiterates that he is getting scary and that she is now scared of him. She is relieved to know that is in the hospital in hopes he can get help. Regarding history of psychiatric admissions, Romina says that patient was admitted to a psychiatric hospital at least 2 times following suicide attempts, which also occurred soon after his aneurysm/stroke/coma. She says the the 1st attempt (not necessarily resulting in admission) was an intentional overdose from a bottle of pills. Second attempt was attempt to hang himself. Third attempt patient tried to cut his neck with a circular saw. Patient was admitted; required stitches only Of note, 's reporting corroborates with both patient's sister and with patient's own account Patient educated on: diagnosis Informed Consent: understands and further education needed Reason for contiued inpatient stay Substantial Risk for: inability to function Time Spent With Patient Time: Total time managing care of this patient today ____ minutes.
--- NOTE | 2022-03-21 13:34 | PM.NEUROCN ---
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 His stated that he was quite sick when he was in hospital but then he came home and he was okay. He remained okay or well for few months but during that time he was noted to be somewhat depressed. Before his hospitalization in [facility], he used to have some depressed mood but no significant depression or any diagnosis was made. Few months after hospitalization, his personality changed and he became depressed and suicidal. One day he took a lot of prescription medicine. He also became paranoid and delusional. Since then his mental status has subsequently declined with many psychiatric symptoms and cognitive dysfunction. Review of Systems Review of Systems: No history of seizure-like episode or head trauma. He denied alcohol or drug use and his also stated that he did not drink alcohol at least since 2006 when she became associated with him. REPLACED BY [facility] Past Medical History Medical History (Updated 03/15/22 @ 09:12 by Teo Moralez MD) Hypothyroidism Seizures Social History Social History Household Members: Unknown / Unable to assess Housing: Unknown / Unable to assess Unable to assess alcohol history related to: Refusing to respond Patient Tobacco Use Status: Tobacco use Unknown Use of substances other than those prescribed or required for medical reasons: No Currently Displaying Signs/Symptoms of Drug Intoxication Withdrawal: No Advance Directives: No Advance Directives Information Provided: Yes Do you have thoughts of harming others: None Do you have a plan to hurt others: No Plan Recently lost weight without trying: Unsure How much weight loss: Not applicable Eating poorly because of decreased appetite: No Nutrition screen score: 2 Nutrition Risks: No Nutritional Risk Poor oral hygiene: No service: No Sexual orientation: Straight/Heterosexual Meds Allergies Allergy/AdvReac Type Severity Reaction Status Date / Time amoxicillin [AMOXICILLIN] Allergy Unknown VOMITING/ABD Unverified 11/19/19 19:25 PAIN Active Medications: Current Medications Acetaminophen (Acetaminophen 325 Mg Tablet) 650 mg PO Q6H PRN PRN Reason: Headache/Pain Mild Scale (1-3) Al Hydroxide/Mg Hydroxide (Magnesium Hydrox/Alum Hydrox 30 Ml Oral.Susp) 30 ml PO Q6H PRN PRN Reason: Heartburn/Nausea Hydroxyzine HCl (Hydroxyzine Hcl 25 Mg Tablet) 25 mg PO Q6H PRN PRN Reason: Anxiety Levothyroxine Sodium (Levothyroxine Sodium 200 Mcg Tablet) 200 mcg PO DAILY@0630 MANAS Last Admin: 03/21/22 08:42 Dose: 200 mcg Magnesium Hydroxide (Milk Of Magnesia 30 Ml Oral.Susp) 30 ml PO DAILY PRN PRN Reason: Constipation Risperidone (Risperidone 3 Mg Tablet) 3 mg PO BEDTIME MANAS Trazodone HCl (Trazodone Hcl 50 Mg Tablet) 50 mg PO BEDTIME PRN PRN Reason: Insomnia Home Medications Medication Instructions Recorded Confirmed Last Taken Type levetiracetam 500 mg tablet 3 tab PO BID 03/12/22 03/12/22 Unknown History levothyroxine 200 mcg tablet 1 tab PO DAILY 03/12/22 03/12/22 Unknown History Physical Exam Vital Signs: Vital Signs: Last Vital Signs Temp 96.8 F 03/21/22 08:43 Pulse 98 03/21/22 08:43 Resp 18 03/21/22 08:43 BP 126/66 03/21/22 08:43 Pulse Ox 100 03/21/22 08:43 O2 Del Method 03/21/22 08:43 BMI result Body Mass Index 25.7 Neuro: Other: He was alert and awake with normal spontaneity of speech fluency comprehension and somewhat flat affect. There was mild bradykinesia. Face was symmetrical. Visual guerra are full. Extraocular muscles were intact. There was no significant tremor. Deep tendon reflexes were trace to absent with flexor plantars. Gait was cautious. Results Labs 03/12/22 21:36 03/14/22 08:37 Labs: CT of brain revealed [id number] cortical bilateral cerebral atrophy for his age. Assessment and Plan (1) Cognitive and behavioral changes: Status: Acute 57 years old man who according to his was relatively okay until about couple of years ago when he was admitted [facility] with a diagnosis of ?thyroid coma?. I have not reviewed his records from [facility]. Apparently he was relatively okay after discharge for few months and then he became depressed, paranoid and delusional. Since then his mental status has not improved or gotten back to normal. When I talked to him, he could not recall or remember large part of this story. He is still significantly hypothyroid and is overall clinical situation probably can be explained based upon myxedema. This is a somewhat serious endocrinological condition, frequently requiring intensive care treatment and endocrinology expertise. Differential diagnosis could include many other entities resulting in encephalopathy but then we would be considering 2 different pathologies. If that was the case, collagen vascular are autoimmune etiologies should be considered. If not done before, he should have MRI of brain with and without contrast and CSF analysis for autoimmune encephalitis panel. On serum, he should have antinuclear antibody screen, double stranded DNA screen, Lyme and syphilis screen, an HIV test. Probably a better option is to transfer him to [facility] where multiple expertise are available and he had his previous treatment. Time Spent With Patient Time: Total time managing care of this patient today ____ minutes. Procedures Date of Service Date of Service: 03/21/22
--- NOTE | 2022-03-21 14:50 | PC.NURSE ---
Pt participated in [facility] screen on this date, pt scored 26/30 indicating cognition is within normal limits. An additional point was added to final result as pt did not finish high school. and nursing aware.
[2022-03-21 18:00] VITALS: BP 129/78; PULSE 92; TEMP 37.1; O2SAT 96
[2022-03-21] MEDS: risperiDONE 3 MG TABLET PO (22:17)
[2022-03-22 07:00] VITALS: BMI 26.2
[2022-03-22] MEDS: Levothyroxine Sodium 200 MCG TABLET PO (08:35)
[2022-03-22 08:47] VITALS: BP 122/64; PULSE 88; RESP 18; TEMP 35.9; O2SAT 97
--- NOTE | 2022-03-22 13:25 | P.PNPSI_ITS ---
Subjective Subjective Date of Service: 03/22/22 Reason For Visit: capgrass delusions Interim History: late entry note for pt seen 03/22/22 met with pt; discussed with team; discussed case with [facility], [facility] who will try to encourage pt to have MRI and agrees with necessity for help w/ dx yesterday pt agreed to MRI; today however he is having much trouble signing it, saying I' don't know what MRI stands for and though designer/writer explained he remains worried that he may be being fooled into signing something else (though he's had an MRI in the past). denies any hx of allergy to contrast dye says has BB in left side of nose, but that he's had MRI's since then. Mental Status Exam Mental Status Exam Narrative: Pt is alert and oriented; behavior is cooperative, friendly enough on approach and calm, but also disorganized, often standing in one place in hallway for extended periods of time; patient is not in distress; dressed in casual attire, clean cloths, adequate hygiene; mood is described as ok affect blunted; eye contact appropriate; Speech is normal rate, volume and prosody and not pressured; some psychomotor retardation present; thought process is goal directe d but concrete; Thought content is on paranoid delusions; some anxiety over memory impairment; he is able to be pertinent to relevant topics when asked; denies any SI/HI. Does not seem internally preoccupied; and he denies AVH. Memory impairment significant Patients insight and judgment impaired. Diagnostics Vital Signs (24Hr): Vital Signs - 24 hr 03/23/22 18:00 03/24/22 08:24 Temperature 97.8 F 96.9 F Pulse Rate 92 83 Respiratory Rate 16 16 Blood Pressure 118/78 124/75 Pulse Oximetry 98 96 Oxygen Delivery Method Room Air Room Air BMI result Body Mass Index 26.2 Labs 03/12/22 21:36 03/14/22 08:37 Imaging Radiology Impressions: ITS Impressions Head CT 03/12/22 20:45 IMPRESSION: 1. No acute intracranial pathology. Medications Medications Current Medications Acetaminophen (Acetaminophen 325 Mg Tablet) 650 mg PO Q6H PRN PRN Reason: Headache/Pain Mild Scale (1-3) Al Hydroxide/Mg Hydroxide (Magnesium Hydrox/Alum Hydrox 30 Ml Oral.Susp) 30 ml PO Q6H PRN PRN Reason: Heartburn/Nausea Hydroxyzine HCl (Hydroxyzine Hcl 25 Mg Tablet) 25 mg PO Q6H PRN PRN Reason: Anxiety Levothyroxine Sodium (Levothyroxine Sodium 200 Mcg Tablet) 200 mcg PO DAILY@0630 [facility] Last Admin: 03/24/22 06:02 Dose: 200 mcg Magnesium Hydroxide (Milk Of Magnesia 30 Ml Oral.Susp) 30 ml PO DAILY PRN PRN Reason: Constipation Risperidone (Risperidone 3 Mg Tablet) 3 mg PO BEDTIME [facility] Last Admin: 03/23/22 21:50 Dose: 3 mg Trazodone HCl (Trazodone Hcl 50 Mg Tablet) 50 mg PO BEDTIME PRN PRN Reason: Insomnia Allergies Allergies Allergy/AdvReac Type Severity Reaction Status Date / Time amoxicillin [AMOXICILLIN] Allergy Unknown VOMITING/ABD Unverified 11/19/19 19:25 PAIN Assessment & Plan Assessment & Plan (1) Cognitive and behavioral changes: Status: Acute Code(s): R41.89 - Other symptoms and signs involving cognitive functions and awareness; R46.89 - Other symptoms and signs involving appearance and behavior (2) Delusional disorder: Status: Acute Code(s): F22 - Delusional disorders (3) Hypothyroidism: Status: Acute Code(s): E03.9 - Hypothyroidism, unspecified Plan HPI: Patient is a 57-year-old male on a 12b with a history of hypothyroid disorder/thyroid coma, stroke and brain aneurysm who presents to the emergency room reportedly after his friends to come to a clinic, concern for his memory impairment, delusional thinking (about people being imposters), not taking medications and poor ADLs. Patient is a poor historian and collateral as necessary to further assess. -He has history of stroke and other comorbidities that could influence cognition. Collateral is necessary to figure out the timelines of his memory impairment and whether it has worsened. Also, will need history from Neurology to see what imaging has been done -patient does have some paranoid delusional thoughts; he is vague about them. He does look moderately disheveled however he does not appear overtly disorganized at this time -significantly elevated TSH; he does say he takes his thyroid medication daily but will need collateral -although he says he scared about his memory impairment, he denies all other psychiatric symptoms. -will consult with endocrinology regarding elevated TSH Hospital course: 03/15 Collateral helpful and reveals that he is having psychotic symptoms and is confused, possibly in the face of going off psychiatric medications; sister will try to get a hold of recent medication list; designer/writer did try to call patient's PCP Dr. Hatfield but was unable to connect (ANNETTE Signed). Hypothyroidism due to noncompliance with medication. Memory loss present since stroke 03/16 will start Risperdal 03/17 patient says tired from Risperdal in the morning so will switch to bedtime; remains with paranoid delusions; memory impairment. Very little insight Discussed case with team; discussed with nursing; reviewed vitals and WNL 03/18 no change in presentation; not open to further med changes. Patient used to be on Depakote but does not want to take it and refuses it Will need to discuss further with team. Patient seems to have memory impairment/cognitive dysfunction present since his stroke 2 years ago, Which according to collateral has not necessarily worsened. Patient also has some has paranoid delusional thinking. Seems to be a combination of both cognitive dysfunction and delusional thinking that brings him back to his house and violating restraining order. Patient is not currently under the care of a neurologist; designer/writer discussed this with him any agrees to go, however his sister says he typically has no interest in doctor's appointments or medication. Patient lives at his sister's who cares for his needs; he has no history of violence or aggression towards anyone and is without any SI or HI. 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 Although patient is not in imminent risk for harm to himself or others, he risks getting arrested in prosecuted for violating restraining order. Need to talk with patient's ; will discuss further with team. -Discussed case with nursing; reviewed vitals and WNL 03/19 patient remains with paranoid delusions and without insight; he plans to continue going back to the house since in his mind, it is his house. Disorganized behavior in that he will stand [address] for long periods of time not engaging with others. Says he feels a little tired from the Risperdal but cont inues to take it. He says he will likely not take it once discharged. 03/20 patient remains without insight and has paranoid delusions. Now having received collateral from his estranged Romina, it is more clear that patient's behaviors in the community are threatening. Romina is now scared of h im. He has tried to break into his 1/estranged 's house, has violated and no trespass order multiple times and has been subsequently arrested; the week prior to this admission, a Restraining order was enacted following a text patient sent to Romina which said she is not going to make it out alive. Patient than violated this restraining order. Patient has very little to no insight regarding his behaviors. Patient intends to continue going back to the house since he thinks it is his house and has paranoid, delusional concerns about his . Patient says he will not take medication once he leaves. At this time, patient is not safe for discharge. 03/21 no change; neuro consult pending [place] 03/22 refused MRI since paranoid FORMULATION/IMPRESSION: Patient is a 57-year-old male with no psychiatric history prior to 2020. 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 Over the past 6-8 months, patient's memory and cognitive function has significantly worsened; patient has developed paranoid delusions and is without insight. Due to a combination of paranoid delusional thinking and cognitive impairment, Patient has been increasingly harassing his estranged . The harassment has worsened and over the past few weeks and patient's estranged is now afraid: he has tried to break into her house, violated a no trespass order, sent a cryptic, threatening text message and has violated a restraining order. Patient does not seem to have any insight that his behaviors are harassing or frightening or that he is operating from paranoid delusions. It seems likely there is some relationship between between patient's paranoid delusions, his cognitive decline and history of either aneurysm/stroke/coma, given the clear timeline. Patient needs further workup with help from Neurology to better assess. At this time patient remains unsafe to be in the community an d requires inpatient level of care for treatment and containment for safety and medication management. Plan CV Q 15 minute checks 1. Psychotic symptoms/delusions 2/2 to medical illness (aneurysm/stroke...) vs organic etiology Increase to Risperdal 3 mg q.h.s. Neurology consult MRI ordered but pt refused to consent [place] Concern that patient may need a guardian -Records pending: need more detailed history of aneurysm/stroke/coma as reports are all from non clinicians and without pertinent details -some history of prescribed psychotropic medications: mirtazapine 15 mg, Depakote ER 750 mg -symptoms seem to be worsening over the past 5 months (it now seems less likely that patient was adherent with medications) 2. Cognitive disorder s/p stroke, brain aneurysm, myxedema coma? All in 2020: Reportedly present since stroke in 2020 -neurology consult 3. Hypothyroid: Continue levothyroxine 200mcg daily at 06:30 discussed with clinical research coordinator Dr. Alberts; appreciate recommendations hx of myxedema coma Otherwise: Discontinue Levetiracetam: Patient says he has not been on that for almost a year and prescription history seems to support this. He says he does not want and it is to be discontinued. He denies any history of actually having a seizure but says this was started s/p thyroid coma as a prophylactic measure to prevent seizure [employer]er talked with Romina, patient's estranged (ANNETTE signed): Romina reports that up until around 2020 when he had his coma and mini strokes, patient was is regular self without any overt psychiatric symptoms; only on designer/writer's further inquiry did she say there was maybe some intermittent, minimal/mild paranoia. 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 She says afterwards he had some rehab and some memory impairment but nowhere near as significant as it is now. She says over the next 6 months his memory problems worsened. At some point they and he went to live with his sister. She says that for the past 8 months his memory has continued to deteriorate. For the past year he has been calling her around 50 or 60 times a day and would send constant text messages all day long. Would frequently show up at her house (she reports the house is fully hers, in her name). She continues to care about him and hope that he would eventually stop coming over as she continually explained that their relationship was over. Once, she let him into the house to see his nephew but then he would not leave an she said it took enormous effort to get him out the door. Since then she has not let him in the house. Despite this, he kept coming over to the house daily, knocking for hours at a time. She knew patient was struggling and did not want him to add to his troubles and so hesitated to call the police. However patient continued to come over and then actually started trying to get into the house, once using a credit card. He would call her daughter and say he standing outside the house. Patient would also stand for hours and front of the house. Romina started to get scared. He tried to get into the house about 3 weeks ago, she call the police who issued a no trespassing order. He violated the order, was arrested and taken to [facility] assisted for couple days; immediately on release he would back to the house and got arrested again. Released again, he went over to the house and stood outside of it. Last week, just before this admission, send a text message to Romina that said she is not going to make it out alive. After this the rib builder put a restraining order on patient. He continued to violated, stating outside her house for hours; he left his sister's house and stayed at a friend's house near [facility] and for hours and hours, in the rain, in the snow would customer supply coordinator front of her house, only going to his friend's house to sleep for a few hours and then to repeat the next day. Romina says this is what resulted in this admission. She says he accuses her of being an imposter on the phone; after interacting with the police he'll say they are not real customer experience consultant, they are scammers... She reiterates that he is getting scary and that she is now scared of him. She is relieved to know that is in the hospital in hopes he can get help. Regarding history of psychiatric admissions, Romina says that patient was ad mitted to a psychiatric hospital at least 2 times following suicide attempts, which also occurred soon after his aneurysm/stroke/coma. She says the the 1st attempt (not necessarily resulting in admission) was an intentional overdose from a bottle of pills. Second attempt was attempt to hang himself. Third attempt patient tried to cut his neck with a circular saw. Patient was admitted; required stitches only Of note, 's reporting corroborates with both patient's sister and with patient's own account Patient educated on: diagnosis, medication risk/benefits and medical condition Informed Consent: does not understand and further education needed Reason for contiued inpatient stay Substantial Risk for: inability to function Time Spent With Patient Time: Total time managing care of this patient today ____ minutes.
[2022-03-22 17:16] VITALS: BP 125/66; PULSE 92; RESP 18; TEMP 36.1; O2SAT 98
[2022-03-22 18:14] VITALS: BP 120/75; PULSE 101; TEMP 36.6
[2022-03-22] MEDS: risperiDONE 3 MG TABLET PO (20:40)
[2022-03-23 08:22] VITALS: BP 115/65; PULSE 96; TEMP 36.9; O2SAT 97
[2022-03-23] MEDS: Levothyroxine Sodium 200 MCG TABLET PO (08:25)
--- NOTE | 2022-03-23 11:55 | P.PNPSI_ITS ---
Subjective Subjective Date of Service: 03/23/22 Reason For Visit: capgrass delusions Subjective Notes: Conditional Voluntary Interim History: Pt reports sleeping and eating well. he reports he does not remember when was the last time he spoke with his . He states he finds it unusual that she did not mention their dogs and this troubles him a bit. He denies SI/HI. he does described time when he had suicidal attempt some years ago- states he does not feel this way anymore. Per nursing, pt slept through the night. No behavioral concerns. taking meds as prescribed. Pt reports he feels tired but not sure what is causing this. Encouraged to continue taking meds. He is agreeable to do MRI today stating something is wrong with my brain. Medication Compliance: Yes Side effects from medications: No Review of Systems Review of Systems No history of seizure-like episode or head trauma. He denied alcohol or drug use and his also stated that he did not drink alcohol at least since 2006 when she became associated with him. Yes Unobtainable due to mental status Mental Status Exam Mental Status Exam Narrative: Pt is alert and oriented; behavior is cooperative, friendly enough on approach and calm, but also disorganized, often standing in one place in hallway for extended periods of time; patient is not in distress; dressed in casual attire, clean cloths, adequate hygiene; mood is described as ok affect blunted; eye contact appropriate; Speech is normal rate, volume and prosody and not pressured; some psychomotor retardation present; thought process is goal directed but concrete; Thought content is on paranoid delusions; some anxiety over memory impairment; he is able to be pertinent to relevant topics when asked; denies any SI/HI. Does not seem internally preoccupied; and he denies AVH. Memory impairment significant Patients insight and judgment impaired. Diagnostics Vital Signs (24Hr): Vital Signs - 24 hr 03/22/22 17:16 03/22/22 18:14 03/23/22 08:22 Temperature 96.9 F 98 F 98.5 F Pulse Rate 92 101 H 96 Respiratory Rate 18 Blood Pressure 125/66 120/75 115/65 Pulse Oximetry 98 97 Oxygen Delivery Method Room Air Room Air BMI result Body Mass Index 26.2 Labs 03/12/22 21:36 03/14/22 08:37 Imaging Radiology Impressions: ITS Impressions Head CT 03/12/22 20:45 IMPRESSION: 1. No acute intracranial pathology. Medications Medications Current Medications Acetaminophen (Acetaminophen 325 Mg Tablet) 650 mg PO Q6H PRN PRN Reason: Headache/Pain Mild Scale (1-3) Al Hydroxide/Mg Hydroxide (Magnesium Hydrox/Alum Hydrox 30 Ml Oral.Susp) 30 ml PO Q6H PRN PRN Reason: Heartburn/Nausea Hydroxyzine HCl (Hydroxyzine Hcl 25 Mg Tablet) 25 mg PO Q6H PRN PRN Reason: Anxiety Levothyroxine Sodium (Levothyroxine Sodium 200 Mcg Tablet) 200 mcg PO DAILY@0630 [facility] Last Admin: 03/23/22 08:25 Dose: 200 mcg Magnesium Hydroxide (Milk Of Magnesia 30 Ml Oral.Susp) 30 ml PO DAILY PRN PRN Reason: Constipation Risperidone (Risperidone 3 Mg Tablet) 3 mg PO BEDTIME [facility] Last Admin: 03/22/22 20:40 Dose: 3 mg Trazodone HCl (Trazodone Hcl 50 Mg Tablet) 50 mg PO BEDTIME PRN PRN Reason: Insomnia Allergies Allergies Allergy/AdvReac Type Severity Reaction Status Date / Time amoxicillin [AMOXICILLIN] Allergy Unknown VOMITING/ABD Unverified 11/19/19 19:25 PAIN Assessment & Plan Assessment & Plan (1) Delusional disorder: Status: Acute Code(s): F22 - Delusional disorders (2) Cognitive and behavioral changes: Status: Acute Code(s): R41.89 - Other symptoms and signs involving cognitive functions and awareness; R46.89 - Other symptoms and signs involving appearance and behavior (3) Hypothyroidism: Status: Acute Code(s): E03.9 - Hypothyroidism, unspecified Plan HPI: Patient is a 57-year-old male on a 12b with a history of hypothyroid disorder/thyroid coma, stroke and brain aneurysm who presents to the emergency room reportedly after his friends to come to a clinic, concern for his memory impairment, delusional thinking (about people being imposters), not taking medications and poor ADLs. Patient is a poor historian and collateral as necessary to further assess. -He has history of stroke and other comorbidities that could influence cognition. Collateral is necessary to figure out the timelines of his memory impairment and whether it has worsened. Also, will need history from Neurology to see what imaging has been done -patient does have some paranoid delusional thoughts; he is vague about them. He does look moderately disheveled however he does not appear overtly disorganized at this time -significantly elevated TSH; he does say he takes his thyroid medication daily but will need collateral -although he says he scared about his memory impairment, he denies all other psychiatric symptoms. -will consult with endocrinology regarding elevated TSH Hospital course: 03/15 Collateral helpful and reveals that he is having psychotic symptoms and is confused, possibly in the face of going off psychiatric medications; sister will try to get a hold of recent medication list; commercial loan underwriter did try to call patient's PCP Dr. Hatfield but was unable to connect (ANNETTE Signed). Hypothyroidism due to noncompliance with medication. Memory loss present since stroke 03/16 will start Risperdal 03/17 patient says tired from Risperdal in the morning so will switch to bedtime; remains with paranoid delusions; memory impairment. Very little insight Discussed case with team; discussed with nursing; reviewed vitals and WNL 03/18 no change in presentation; not open to further med changes. Patient used to be on Depakote but does not want to take it and refuses it Will need to discuss further with team. Patient seems to have memory impairment/cognitive dysfunction present since his stroke 2 years ago, Which according to collateral has not necessarily worsened. Patient also has some has paranoid delusional thinking. Seems to be a combination of both cognitive dysfunction and delusional thinking that brings him back to his house and violating restraining order. Patient is not currently under the care of a neurologist; commercial loan underwriter discussed this with him any agrees to go, however his sister says he typically has no interest in doctor's appointments or medication. Patient lives at his sister's who cares for his needs; he has no history of violence or aggression towards anyone and is without any SI or HI. 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 Although patient is not in imminent risk for harm to himself or others, he risks getting arrested in prosecuted for violating restraining order. Need to talk with patient's ; will discuss further with team. -Discussed case with nursing; reviewed vitals and WNL 03/19 patient remains with paranoid delusions and without insight; he plans to continue going back to the house since in his mind, it is his house. Disorganized behavior in that he will stand [address] for long periods of time not engaging with others. Says he feels a little tired from the Risperdal but continues to take it. He says he will likely not take it once discharged. 03/20 patient remains without insight and has paranoid delusions. Now having received collateral from his estranged Romina, it is more clear that patient's behaviors in the community are threatening. Romina is now scared of him. He has tried to break into his estranged 's house, has violated and no trespass order multiple times and has been subsequently arrested; the week prior to this admission, a Restraining order was enacted following a text patient sent to Romina which said she is not going to make it out alive. P atient than violated this restraining order. Patient has very little to no insight regarding his behaviors. Patient intends to continue going back to the house since he thinks it is his house and has paranoid, delusional concerns about his . Patient says he will not take medication once he leaves. At this time, patient is not safe for discharge. -will get Neurology consult (will hold off on MRI for neuro recs) -[facility] -records from [facility] pending 03/23- covering for Dr. Moralez, of note consider research/literature on high specificity for delusional misidentification disorders (such as cap gras delusions which are the ones pt has been having) after single lesion to right frontal cortex region. Pt to continue current medications. FORMULATION/IMPRESSION: Patient is a 57-year-old male with no psychiatric history prior to 2020. 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 Over the past 6-8 months, patient's memory and cognitive function has significantly worsened; patient has developed paranoid delusions and is without insight. Due to a combination of paranoid delusional thinking and cognitive impairment, Patient has been increasingly harassing his estranged . The harassment has worsened and over the past few weeks and patient's estranged is now afraid: he has tried to break into her house, violated a no trespass order, sent a cryptic, threatening text message and has violated a restraining order. Patient does not seem to have any insight that his behaviors are harassing or frightening or that he is operating from paranoid delusions. It seems likely there is some relationship between between patient's paranoid delusions, his cognitive decline and history of either aneurysm/stroke/coma, given the clear timeline. Patient needs further workup with help from Neurology to better assess. At this time patient remains unsafe to be in the community an d requires inpatient level of care for treatment and containment for safety and medication management. Plan CV Q 15 minute checks 1. Psychotic symptoms/delusions 2/2 to medical illness (aneurysm/stroke...) vs organic etiology Increase to Risperdal 3 mg q.h.s. Neurology consult Will get [place] Concern that patient may need a guardian -Records pending: need more detailed history of aneurysm/stroke/coma as reports are all from non clinicians and without pertinent details -some history of prescribed psychotropic medications: mirtazapine 15 mg, D epakote ER 750 mg -symptoms seem to be worsening over the past 5 months (it now seems less likely that patient was adherent with medications) 2. Cognitive disorder s/p stroke, brain aneurysm, myxedema coma? All in 2020: Reportedly present since stroke in 2020 -neurology consult 3. Hypothyroid: Continue levothyroxine 200mcg daily at 06:[address] Alberts; appreciate recommendations hx of myxedema coma Otherwise: Discontinue Levetiracetam: Patient says he has not been on that for almost a year and prescription history seems to support this. He says he does not want and it is to be discontinued. He denies any history of actually having a seizure but says this was started s/p thyroid coma as a prophylactic measure to prevent seizure Form Press Operator talked with Romina, patient's estranged (ANNETTE signed): Romina reports that up until around 2020 when he had his coma and mini strokes, patient was is regular self without any overt psychiatric symptoms; only on commercial loan underwriter's further inquiry did she say there was maybe some intermittent, minimal/mild paranoia. 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 She says afterwards he had some rehab and some memory impairment but nowhere near as significant as it is now. She says over the next 6 months his memory problems worsened. At some point they and he went to live with his sister. She says that for the past 8 months his memory has continued to deteriorate. For the past year he has been calling her around 50 or 60 times a day and would send constant text messages all day long. Would frequently show up at her house (she reports the house is fully hers, in her name). She continues to care about him and hope that he would eventually stop coming over as she continually explained that their relationship was over. Once, she let him into the house to see his nephew but then he would not leave an she said it took enormous effort to get him out the door. Since then she has not let him in the house. Despite this, he kept coming over to the house daily, knocking for hours at a time. She knew patient was struggling and did not want him to add to his troubles and so hesitated to call the police. However patient continued to come over and then actually start ed trying to get into the house, once using a credit card. He would call her daughter and say he standing outside the house. Patient would also stand for hours and front of the house. Romina started to get scared. He tried to get into the house about 3 weeks ago, she call the police who issued a no trespassing order. He violated the order, was arrested and taken to [facility] for couple days; immediately on release he would back to the house and got arrested again. Released again, he went over to the house and stood outside of it. Last week, just before this admission, send a text message to Romina that said she is not going to make it out alive. After this the bank accountant put a restrai connor order on patient. He continued to violated, stating outside her house for hours; he left his sister's house and stayed at a friend's house near Romina's and for hours and hours, in the rain, in the snow would disintegrator feeder front of her house, only going to his friend's house to sleep for a few hours and then to repeat the next day. Romina says this is what resulted in this admission. She says he accuses her of being an imposter on the phone; after interacting with the police he'll say they are not real complex case manager, they are scammers... She reiterates that he is getting scary and that she is now scared of him. She is relieved to know that is in the hospital in hopes he can get help. Regarding history of psychiatric admissions, Romina says that patient was admitted to a psychiatric hospital at least 2 times following suicide attempts, which also occurred soon after his aneurysm/stroke/coma. She says the the 1st attempt (not necessarily resulting in admission) was an intentional overdose f rom a bottle of pills. Second attempt was attempt to hang himself. Third attempt patient tried to cut his neck with a circular saw. Patient was admitted; required stitches only Of note, 's reporting corroborates with both patient's sister and with patient's own account Reason for contiued inpatient stay Substantial Risk for: inability to function Time Spent With Patient Time: Total time managing care of this patient today ____ minutes.
[2022-03-23 18:00] VITALS: BP 118/78; PULSE 92; RESP 16; TEMP 36.6; O2SAT 98
[2022-03-23] MEDS: risperiDONE 3 MG TABLET PO (21:50)
[2022-03-24] MEDS: Levothyroxine Sodium 200 MCG TABLET PO (06:02)
[2022-03-24 08:24] VITALS: BP 124/75; PULSE 83; RESP 16; TEMP 36.1; O2SAT 96
[2022-03-24 17:35] VITALS: BP 123/76; PULSE 100; RESP 18; TEMP 36.5; O2SAT 99
--- NOTE | 2022-03-24 20:15 | P.PNPSI_ITS ---
Subjective Subjective Date of Service: 03/24/22 Reason For Visit: capgrass delusions Interim History: Care review with nursing Approachable, visable, talkative but with an anxious paranoid edge Able to be available in milieu but with noticable tension Medication Compliance: Yes Side effects from medications: No Attending Groups: Intermittent Review of Systems Acute medical concerns: No Medical Review of Systems: unchanged Mental Status Exam Mental Status Exam Patient Appearance: Appropriate Patient Orientation: Person and Place Level of Consciousness: Alert Patient Behavior: Talkative and Good Eye Contact Mood Description: Apprehensive Affect Description: Apprehensive Patient Cognition Impaired: No Ability to Follow Directions: Good Speech Pattern: Spontaneous Speech 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: Episodic Impaired 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: None (denies) Delusions: Paranoid Ideation Perceptual Disturbances: Depersonalization and Derealization Thought Content: positive for Perseveration Judgement: Fair Diagnostics Vital Signs (24Hr): Vital Signs - 24 hr 03/24/22 08:24 03/24/22 17:35 Temperature 96.9 F 97.7 F Pulse Rate 83 100 Respiratory Rate 16 18 Blood Pressure 124/75 123/76 Pulse Oximetry 96 99 Oxygen Delivery Method Room Air Room Air BMI result Body Mass Index 26.2 Labs 03/12/22 21:36 03/14/22 08:37 Imaging Radiology Impressions: ITS Impressions Head CT 03/12/22 20:45 IMPRESSION: 1. No acute intracranial pathology. Medications Medications Current Medications Acetaminophen (Acetaminophen 325 Mg Tablet) 650 mg PO Q6H PRN PRN Reason: Headache/Pain Mild Scale (1-3) Al Hydroxide/Mg Hydroxide (Magnesium Hydrox/Alum Hydrox 30 Ml Oral.Susp) 30 ml PO Q6H PRN PRN Reason: Heartburn/Nausea Hydroxyzine HCl (Hydroxyzine Hcl 25 Mg Tablet) 25 mg PO Q6H PRN PRN Reason: Anxiety Levothyroxine Sodium (Levothyroxine Sodium 200 Mcg Tablet) 200 mcg PO DAILY@0630 FOR[facility]LY [facility], [facility] Last Admin: 03/24/22 06:02 Dose: 200 mcg Magnesium Hydroxide (Milk Of Magnesia 30 Ml Oral.Susp) 30 ml PO DAILY PRN PRN Reason: Constipation Risperidone (Risperidone 3 Mg Tablet) 3 mg PO BEDTIME FOR[facility]LY [facility] Last Admin: 03/23/22 21:50 Dose: 3 mg Trazodone HCl (Trazodone Hcl 50 Mg Tablet) 50 mg PO BEDTIME PRN PRN Reason: Insomnia Allergies Allergies Allergy/AdvReac Type Severity Reaction Status Date / Time amoxicillin [AMOXICILLIN] Allergy Unknown VOMITING/ABD Unverified 11/19/19 19:25 PAIN Assessment & Plan Assessment & Plan (1) Cognitive and behavioral changes: Status: Acute Code(s): R41.89 - Other symptoms and signs involving cognitive functions and awareness; R46.89 - Other symptoms and signs involving appearance and behavior (2) Delusional disorder: Status: Acute Code(s): F22 - Delusional disorders (3) Hypothyroidism: Status: Acute Code(s): E03.9 - Hypothyroidism, unspecified Plan HPI: Patient is a 57-year-old male on a 12b with a history of hypothyroid disorde r/thyroid coma, stroke and brain aneurysm who presents to the emergency room reportedly after his friends to come to a clinic, concern for his memory impairment, delusional thinking (about people being imposters), not taking medications and poor ADLs. Patient is a poor historian and collateral as necessary to further assess. -He has history of stroke and other comorbidities that could influence cognition. Collateral is necessary to figure out the timelines of his memory impairment and whether it has worsened. Also, will need history from Neurology to see what imaging has been done -patient does have some paranoid delusional thoughts; he is vague about them. He does look moderately disheveled however he does not appear overtly disorganized at this time -significantly elevated TSH; he does say he takes his thyroid medication daily but will need collateral -although he says he scared about his memory impairment, he denies all other psychiatric symptoms. -will consult with endocrinology regarding elevated TSH Hospital course: 03/15 Collateral helpful and reveals that he is having psychotic symptoms and is confused, possibly in the face of going off psychiatric medications; sister will try to get a hold of recent medication list; telegraphic typewriter operator chief did try to call patient's PCP Dr. Hatfield but was unable to connect (ANNETTE Signed). Hypothyroidism due to noncompliance with medication. Memory loss present since stroke 03/16 will start Risperdal 03/17 patient says tired from Risperdal in the morning so will switch to bedtime; remains with paranoid delusions; memory impairment. Very little insight Discussed case with team; discussed with nursing; reviewed vitals and WNL 03/18 no change in presentation; not open to further med changes. Patient used to be on Depakote but does not want to take it and refuses it Will need to discuss further with team. Patient seems to have memory impairment/cognitive dysfunction present since his stroke 2 years ago, Which according to collateral has not necessarily worsened. Patient also has some has paranoid delusional thinking. Seems to be a combination of both cognitive dysfunction and delusional thinking that brings him back to his house and violating restraining order. Patient is not currently under the care of a neur ologist; telegraphic typewriter operator chief discussed this with him any agrees to go, however his sister says he typically has no interest in doctor's appointments or medication. Patient lives at his sister's who cares for his needs; he has no history of violence or aggression towards anyone and is without any SI or HI. 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 Although patient is not in imminent risk for harm to himself or others, he risks getting arrested in prosecuted for violating restraining order. Need to talk with patient's ; will discuss further with team. -Discussed case with nursing; reviewed vitals and WNL 03/19 patient remains with paranoid delusions and without insight; he plans to continue going back to the house since in his mind, it is his house. Disorganized behavior in that he will stand [address] for long periods of time not engaging with others. Says he feels a little tired from the Risperdal but continues to take it. He says he will likely not take it once discharged. 03/20 patient remains without insight and has paranoid delusions. Now having received collateral from his estranged Romina, it is more clear that patient's behaviors in the community are threatening. Romina is now scared of him. He has tried to break into his 1/estranged 's house, has violated and no trespass order multiple times and has been subsequently arrested; the week prior to this admission, a Restraining order was enacted following a text p atient sent to Romina which said she is not going to make it out alive. Patient than violated this restraining order. Patient has very little to no insight regarding his behaviors. Patient intends to continue going back to the house since he thinks it is his house and has paranoid, delusional concerns about his . Patient says he will not take medication once he leaves. At this time, patient is not safe for discharge. 03/21 no change; neuro consult pending [facility] 03/24/22 continue current plan of care FORMULATION/IMPRESSION: Patient is a 57-year-old male with no psychiatric history prior to 2020. 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 Over the past 6-8 months, patient's memory and cognitive function has significantly worsened; patient has developed paranoid delusions and is without insight. Due to a combination of paranoid delusional thinking and cognitive impairment, Patient has been increasingly harassing his estranged . The harassment has worsened and over the past few weeks and patient's estranged is now afraid: he has tried to break into her house, violated a no trespass order, sent a cryptic, threatening text message and has violated a restraining order. Patient does not seem to have any insight that his behaviors are harassing or frightening or that he is operating from paranoid delusions. It seems likely there is some relationship between between patient's paranoid delusions, his cognitive decline and history of either aneurysm/stroke/coma, given the clear timeline. Patient needs further workup with help from Neurology to better assess. At this time patient remains unsafe to be in the community and requires inpatient level of care for treatment and containment for safety and medication management. Plan CV Q 15 minute checks 1. Psychotic symptoms/delusions 2/2 to medical illness (aneurysm/stroke...) vs organic etiology Increase to Risperdal 3 mg q.h.s. Neurology consult [facility] Concern that patient may need a guardian -Records pending: need more detailed history of aneurysm/stroke/coma as reports are all from non clinicians and without pertinent details -some history of prescribed psychotropic medications: mirtazapine 15 mg, Depakote ER 750 mg -symptoms seem to be worsening over the past 5 months (it now seems less likely that patient was adherent with medications) 2. Cognitive disorder s/p stroke, brain aneurysm, myxedema coma? All in 2020: Reportedly present since stroke in 2020 -neurology consult 3. Hypothyroid: Continue levothyroxine 200mcg daily at 06:[address] Alberts; appreciate recommendations hx of myxedema coma Otherwise: Discontinue Levetiracetam: Patient says he has not been on that for almost a year and prescription history seems to support this. He says he does not want and it is to be discontinued. He denies any history of actually having a seiz ure but says this was started s/p thyroid coma as a prophylactic measure to prevent seizure Wagon Drill Operator talked with Romina, patient's estranged (ANNETTE signed): Romina reports that up until around 2020 when he had his coma and mini strokes, patient was is regular self without any overt psychiatric symptoms; only on telegraphic typewriter operator chief's further inquiry did she say there was maybe some intermittent, minimal/mild paranoia. 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 She says afterwards he had some rehab and some memory impairment but nowhere near as significant as it is now. She says over the next 6 months his memory problems worsened. At some point they and he went to live with his sister. She says that for the past 8 months his memory has continued to deteriorate. For the past year he has been calling her around 50 or 60 times a day and would send constant text messages all day long. Would frequently show up at her house (she reports the house is fully hers, in her name). She continues to care about him and hope that he would eventually stop coming over as she continually explained that their relationship was over. Once, she let him into the house to see his nephew but then he would not leave an she said it took enormous effort to get him out the door. Since then she has not let him in the house. Despite this, he kept coming over to the house daily, knocking for hours at a time. She knew patient was struggling and did not want him to add to his troubles and so hesitated to call the police. However patient continued to come over and then actually started trying to get into the house, once using a credit card. He would call her daughter and say he standing outside the house. Patient would also stand for hours and front of the house. Romina started to get scared. He tried to get into the house about 3 weeks ago, she call the police who issued a no trespassing order. He violated the order, was arrested and taken to loved low assisted for couple days; immediately on release he would back to the house and got arrested again. Released again, he went over to the house and stood outside of it. Last week, just before this admission, send a text message to Romina that said she is not going to make it out alive. After this the lithography contact worker put a restraining order on patient. He continued to violated, stating outside her house for hours; he left his sister's house and stayed at a friend's house near Romina's and for hours and hours, in the rain, in the snow would automotive painter helper front of her house, only going to his friend's house to sleep for a few hours and then to repeat the next day. Romina says this is what resulted in this admission. She says he accuses her of being an imposter on the phone; after interacting with the police he'll say they are not real fell cutter, they are scammers... She reiterates that he is getting scary and that she is now scared of him. She is relieved to know that is in the hospital in hopes he can get help. Regarding history of psychiatric admissions, Romina says that patient was admitted to a psychiatric hospital at least 2 times following suicide attempts, which also occurred soon after his aneurysm/stroke/coma. She says the the 1st attempt (not necessarily resulting in admission) was an intentional overdose from a bottle of pills. Second attempt was attempt to hang himself. Third attempt patient tried to cut his neck with a circular saw. Patient was admitted; required stitches only Of note, 's reporting corroborates with both patient's sister and with patient's own account Informed Consent: further education needed Reason for contiued inpatient stay Substantial Risk for: rapid decompensation Time Spent With Patient Time: Total time managing care of this patient today ____ minutes.
[2022-03-24] MEDS: risperiDONE 3 MG TABLET PO (20:35)
[2022-03-25] MEDS: Levothyroxine Sodium 200 MCG TABLET PO (06:32)
[2022-03-25 08:52] VITALS: BP 111/71; PULSE 97; RESP 16; TEMP 36.8; O2SAT 96
[2022-03-25 18:00] VITALS: BP 125/68; PULSE 90; RESP 16; TEMP 37
--- NOTE | 2022-03-25 19:31 | P.PNPSI_ITS ---
Subjective Subjective Date of Service: 03/25/22 Reason For Visit: capgrass delusions Interim History: Quiet, visable, accepting of medications, present in milieu. Review with nursing Pt denies questions/concerns about his plan of care today. Medication Compliance: Yes Side effects from medications: No Attending Groups: Intermittent Review of Systems Acute medical concerns: No Medical Review of Systems: unchanged Mental Status Exam Mental Status Exam Patient Appearance: Appropriate Patient Orientation: Person and Place Level of Consciousness: Alert Patient Behavior: Talkative and Good Eye Contact Mood Description: Apprehensive Affect Description: Apprehensive Patient Cognition Impaired: No Ability to Follow Directions: Good Speech Pattern: Spontaneous Speech 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: Episodic Impaired 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: None (denies) Delusions: Paranoid Ideation Perceptual Disturbances: Depersonalization and Derealization Thought Content: positive for Perseveration Judgement: Fair Diagnostics Vital Signs (24Hr): Vital Signs - 24 hr 03/25/22 08:52 03/25/22 18:00 Temperature 98.2 F 98.6 F Pulse Rate 97 90 Respiratory Rate 16 16 Blood Pressure 111/71 125/68 Pulse Oximetry 96 Oxygen Delivery Method Room Air Room Air BMI result Body Mass Index 26.2 Labs 03/12/22 21:36 03/14/22 08:37 Imaging Radiology Impressions: ITS Impressions Head CT 03/12/22 20:45 IMPRESSION: 1. No acute intracranial pathology. Medications Medications Current Medications Acetaminophen (Acetaminophen 325 Mg Tablet) 650 mg PO Q6H PRN PRN Reason: Headache/Pain Mild Scale (1-3) Al Hydroxide/Mg Hydroxide (Magnesium Hydrox/Alum Hydrox 30 Ml Oral.Susp) 30 ml PO Q6H PRN PRN Reason: Heartburn/Nausea Hydroxyzine HCl (Hydroxyzine Hcl 25 Mg Tablet) 25 mg PO Q6H PRN PRN Reason: Anxiety Levothyroxine Sodium (Levothyroxine Sodium 200 Mcg Tablet) 200 mcg PO DAILY@0630 [facility] Last Admin: 03/25/22 06:32 Dose: 200 mcg Magnesium Hydroxide (Milk Of Magnesia 30 Ml Oral.Susp) 30 ml PO DAILY PRN PRN Reason: Constipation Risperidone (Risperidone 3 Mg Tablet) 3 mg PO BEDTIME [facility] Last Admin: 03/24/22 20:35 Dose: 3 mg Trazodone HCl (Trazodone Hcl 50 Mg Tablet) 50 mg PO BEDTIME PRN PRN Reason: Insomnia Allergies Allergies Allergy/AdvReac Type Severity Reaction Status Date / Time amoxicillin [AMOXICILLIN] Allergy Unknown VOMITING/ABD Unverified 11/19/19 19:25 PAIN Assessment & Plan Assessment & Plan (1) Cognitive and behavioral changes: Status: Acute Code(s): R41.89 - Other symptoms and signs involving cognitive functions and awareness; R46.89 - Other symptoms and signs involving appearance and behavior (2) Delusional disorder: Status: Acute Code(s): F22 - Delusional disorders (3) Hypothyroidism: Status: Acute Code(s): E03.9 - Hypothyroidism, unspecified Plan HPI: Patient is a 57-year-old male on a 12b with a history of hypothyroid disorder/thyroid coma, stroke and brain aneurysm who presents to the emergency room reportedly after his friends to come to a clinic, concern for his memory impairment, delusional thinking (about people being imposters), not taking medications and poor ADLs. Patient is a poor historian and collateral as necessary to further assess. -He has history of stroke and other comorbidities that could influence cognition. Collateral is necessary to figure out the timelines of his memory impairment and whether it has worsened. Also, will need history from Neurology to see what imaging has been done -patient does have some paranoid delusional thoughts; he is vague about them. He does look moderately disheveled however he does not appear overtly disorganized at this time -significantly elevated TSH; he does say he takes his thyroid medication daily but will need collateral -although he says he scared about his memory impairment, he denies all other psychiatric symptoms. -will consult with endocrinology regarding elevated TSH Hospital course: 03/15 Collateral helpful and reveals that he is having psychotic symptoms and is confused, possibly in the face of going off psychiatric medications; sister will try to get a hold of recent medication list; health technical writer did try to call patient's PCP Dr. Hatfield but was unable to connect (ANNETTE Signed). Hypothyroidism due to noncompliance with medication. Memory loss present since stroke 03/16 will start Risperdal 03/17 patient says tired from Risperdal in the morning so will switch to bedtime; remains with paranoid delusions; memory impairment. Very little insight Discussed case with team; discussed with nursing; reviewed vitals and WNL 03/18 no change in presentation; not open to further med changes. Patient used to be on Depakote but does not want to take it and refuses it Will need to discuss further with team. Patient seems to have memory impairment/cognitive dysfunction present since his stroke 2 years ago, Which according to collateral has not necessarily worsened. Patient also has some has paranoid delusional thinking. Seems to be a combination of both cognitive dysfunction and delusional thinking that brings him back to his house and violating restraining order. Patient is not currently under the care of a neurologist; health technical writer discussed this with him any agrees to go, however his sister says he typically has no interest in doctor's appointments or medication. Patient lives at his sister's who cares for his needs; he has no history of violence or aggression towards anyone and is without any SI or HI. 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 Although patient is not in imminent risk for harm to himself or others, he risks getting arrested in prosecuted for violating restraining order. Need to talk with patient's ; will discuss further with team. -Discussed case with nursing; reviewed vitals and WNL 03/19 patient remains with paranoid delusions and without insight; he plans to continue going back to the house since in his mind, it is his house. Disorgan ized behavior in that he will stand [address] for long periods of time not engaging with others. Says he feels a little tired from the Risperdal but continues to take it. He says he will likely not take it once discharged. 03/20 patient remains without insight and has paranoid delusions. Now having received collateral from his estranged Romina, it is more clear that patient's behaviors in the community are threatening. Romina is now scared of him. He has tried to break into his 1/estranged 's house, has violated and no trespass order multiple times and has been subsequently arrested; the week prior to this admission, a Restraining order was enacted following a text patient sent to Romina which said she is not going to make it out alive. Patient than violated this restraining order. Patient has very little to no insight regarding his behaviors. Patient intends to continue going back to the house since he thinks it is his house and has paranoid, delusional concerns about his . Patient says he will not take medication once he leaves. At this time, patient is not safe for discharge. 03/21 no change; neuro consult pending [place] 03/25/22- continue current plan FORMULATION/IMPRESSION: Patient is a 57-year-old male with no psychiatric history prior to 2020. 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 Over the past 6-8 months, patient's memory and cognitive function has significantly worsened; patient has developed paranoid delusions and is without insight. Due to a combination of paranoid delusional thinking and cognitive impairment, Patient has been increasingly harassing his estranged . The harassment has worsened and over the past few weeks and patient's estranged is now afraid: he has tried to break into her house, violated a no trespass order, sent a cryptic, threatening text message and has violated a restraining order. Patient does not seem to have any insight that his behaviors are harassing or frightening or that he is operating from paranoid delusions. It seems likely there is some relationship between between patient's paranoid delusions, his cognitive decline and history of either aneurysm/stroke/coma, given the clear timeline. Patient needs further workup with help from Neurology to better assess. At this time patient remains unsafe to be in the community and requires inpatient level of care for treatment and containment for safety and medication management. Plan CV Q 15 minute checks 1. Psychotic symptoms/delusions 2/2 to medical illness (aneurysm/stroke...) vs organic etiology Increase to Risperdal 3 mg q.h.s. Neurology consult [place] Concern that patient may need a guardian -Records pending: need more detailed history of aneurysm/stroke/coma as reports are all from non clinicians and without pertinent details -some history of prescribed psychotropic medications: mirtazapine 15 mg, Depakote ER 750 mg -symptoms seem to be worsening over the past 5 months (it now seems less likely that patient was adherent with medications) 2. Cognitive disorder s/p stroke, brain aneurysm, myxedema coma? All in 2020: Reportedly present since stroke in 2020 -neurology consult 3. Hypothyroid: Continue levothyroxine 200mcg daily at 06:30 [address]ing observer Dr. Alberts; appreciate recommendations hx of myxedema coma Otherwise: Discontinue Levetiracetam: Patient says he has not been on that for almost a year and prescription history seems to support this. He says he does not want and it is to be discontinued. He denies any history of actually having a seizure but says this was started s/p thyroid coma as a prophylactic measure to prevent seizure [employer] talked with Romina, patient's estranged (ANNETTE signed): Romina reports that up until around 2020 when he had his coma and mini strokes, patient was is regular self without any overt psychiatric symptoms; only on health technical writer's further inquiry did she say there was maybe some intermittent, minimal/ mild paranoia. 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 She says afterwards he had some rehab and some memory impairment but nowhere near as significant as it is now. She says over the next 6 months his memory problems worsened. At some point they and he went to live with his sister. She says that for the past 8 months his memory has continued to deteriorate. For the past year he has been calling her around 50 or 60 times a day and would send constant text messages all day long. Would frequently show up at her house (she reports the house is fully hers, in her name). She continues to care about him and hope that he would eventually stop coming over as she continually explained that their relationship was over. Once, she let him into the house to see his nephew but then he would not leave an she said it took enormous effort to get him out the door. Since then she has not let him in the house. Despite this, he kept coming over to the house daily, knocking for hours at a time. She knew patient was struggling and did not want him to add to his troubles and so hesitated to call the police. However patient continued to come over and then actually started trying to get into the house, once using a credit card. He would call her daughter and say he standing outside the house. Patient would also stand f or hours and front of the house. Romina started to get scared. He tried to get into the house about 3 weeks ago, she call the police who issued a no trespassing order. He violated the order, was arrested and [facility]; immediately on release he would back to the house and got arrested again. Released again, he went over to the house and stood outside of it. Last week, just before this admission, send a text message to Romina that said she is not going to make it out alive. After this the diving judge put a restraining order on patient. 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 Romina says this is what resulted in this admission. She says he accuses her of being an imposter on the phone; after interacting with the police he'll say they are not real bakery clerk, they are scammers... She reiterates that he is getting scary and that she is now scared of him. She is relieved to know that is in the hospital in hopes he can get help. Regarding history of psychiatric admissions, Romina says that patient was admitted to a psychiatric hospital at least 2 times following suicide attempts, which also occurred soon after his aneurysm/stroke/coma. She says the the 1st attempt (not necessarily resulting in admission) was an intentional overdose from a bottle of pills. Second attempt was attempt to hang himself. Third attempt patient tried to cut his neck with a circular saw. Patient was admitt ed; required stitches only Of note, 's reporting corroborates with both patient's sister and with patient's own account Reason for contiued inpatient stay Substantial Risk for: rapid decompensation Time Spent With Patient Time: Total time managing care of this patient today ____ minutes.
[2022-03-25] MEDS: risperiDONE 3 MG TABLET PO (20:54)
[2022-03-26] MEDS: Levothyroxine Sodium 200 MCG TABLET PO (06:19)
[2022-03-26 08:45] VITALS: BP 128/74; PULSE 96; RESP 18; TEMP 36.7; O2SAT 98
--- NOTE | 2022-03-26 09:31 | HO.PSYCHPN ---
Subjective Subjective Date of Service: 03/26/22 Reason For Visit: capgrass delusions Interim History: Met with patient; discussed with team; reviewed covering providers weekend notes Clear Coat Sprayer spent 30 minutes going through [facility] records regarding psychiatric admissions from October 2020 and December 2020. Also listed in records was reference to aneurysm which was apparently an incidental finding from neck CTA after patient tried to cut his neck with a circular saw all in suicide attempt. Reported is aneurysm 0.5 mg right VTA (commercial real estate underwriter discussed aneurysm findings w/ thoracic surgeon that said this is not something that would require a clip). Records also reported estrangement from his children and no work history for 25 years, the patient's old cannabis instead. Clear Coat Sprayer met with patient who remains concerned about people being imposters. He said he talked with his sister on phone and was unsure of her authenticity. Regarding the home where his estranged now owns and lives, patient was focused on his thoughts such as her friends kids are probably living in there... Patient previously asked when he would be discharged and he was offered a 3 day notice. However patient decided he did not want to sign it saying he knows something is wrong with him and that he would stay on the unit. That said he still refused to consent for the MRI. He kept reading it over and over . He said it is just an MRI... And had commercial real estate underwriter physically write on the consent form I consent for magnetic resonance imaging so the could be no ambiguity about what he was signing for. However patient still refused to sign it. Mental Status Exam Mental Status Exam Narrative: Pt is alert and oriented; behavior is cooperative, friendly enough on approach and calm, but also disorganized, often standing in one place in hallway for extended periods of time; patient is not in distress; dressed in casual attire, clean cloths, adequate hygiene; mood is described as ok affect blunted; eye contact appropriate; Speech is normal rate, volume and prosody and not pressured; some psychomotor retardation present; thought process is goal directed but concrete; Thought content is on paranoid delusions; some anxiety over memory impairment; he is able to be pertinent to relevant topics when asked; denies any SI/HI. Does not seem internally preoccupied; and he denies AVH. Memory impairment significant Patients insight and judgment impaired. Diagnostics Vital Signs (24Hr): Vital Signs - 24 hr 03/25/22 18:00 Temperature 98.6 F Pulse Rate 90 Respiratory Rate 16 Blood Pressure 125/68 Oxygen Delivery Method Room Air BMI result Body Mass Index 26.2 Labs 03/12/22 21:36 03/14/22 08:37 Imaging Radiology Impressions: ITS Impressions Head CT 03/12/22 20:45 IMPRESSION: 1. No acute intracranial pathology. Medications Medications Current Medications Acetaminophen (Acetaminophen 325 Mg Tablet) 650 mg PO Q6H PRN PRN Reason: Headache/Pain Mild Scale (1-3) Al Hydroxide/Mg Hydroxide (Magnesium Hydrox/Alum Hydrox 30 Ml Oral.Susp) 30 ml PO Q6H PRN PRN Reason: Heartburn/Nausea Hydroxyzine HCl (Hydroxyzine Hcl 25 Mg Tablet) 25 mg PO Q6H PRN PRN Reason: Anxiety Levothyroxine Sodium (Levothyroxine Sodium 200 Mcg Tablet) 200 mcg PO DAILY@0630 [facility] Last Admin: 03/26/22 06:19 Dose: 200 mcg Magnesium Hydroxide (Milk Of Magnesia 30 Ml Oral.Susp) 30 ml PO DAILY PRN PRN Reason: Constipation Risperidone (Risperidone 3 Mg Tablet) 3 mg PO BEDTIME [facility] Last Admin: 03/25/22 20:54 Dose: 3 mg Trazodone HCl (Trazodone Hcl 50 Mg Tablet) 50 mg PO BEDTIME PRN PRN Reason: Insomnia Allergies Allergies Allergy/AdvReac Type Severity Reaction Status Date / Time amoxicillin [AMOXICILLIN] Allergy Unknown VOMITING/ABD Unverified 11/19/19 19:25 PAIN Assessment & Plan Assessment & Plan (1) Cognitive and behavioral changes: Status: Acute Code(s): R41.89 - Other symptoms and signs involving cognitive functions and awareness; R46.89 - Other symptoms and signs involving appearance and behavior (2) Delusional disorder: Status: Acute Code(s): F22 - Delusional disorders (3) Hypothyroidism: Status: Acute Code(s): E03.9 - Hypothyroidism, unspecified Plan HPI: Patient is a 57-year-old male on a 12b with a history of hypothyroid disorder/thyroid coma, stroke and brain aneurysm who presents to the emergency room reportedly after his friends to come to a clinic, concern for his memory impairment, delusional thinking (about people being imposters), not taking medications and poor ADLs. Patient is a poor historian and collateral as necessary to further assess. -He has history of stroke and other comorbidities that could influence cognition. Collateral is necessary to figure out the timelines of his memory impairment and whether it has worsened. Also, will need history from Neurology to see what imaging has been done -patient does have some paranoid delusional thoughts; he is vague about them. He does look moderately disheveled however he does not appear overtly disorganized at this time -significantly elevated TSH; he does say he takes his thyroid medication daily but will need collateral -although he says he scared about his memory impairment, he denies all other psychiatric symptoms. -will consult with endocrinology regarding elevated TSH Hospital course: 03/15 Collateral helpful and reveals that he is having psychotic symptoms and is confused, possibly in the face of going off psychiatric medications; sister will try to get a hold of recent medication list; commercial real estate underwriter did try to call patient's PCP Dr. Hatfield but was unable to connect (ANNETTE Signed). Hypothyroidism due to noncompliance with medication. Memory loss present since stroke 03/16 will start Risperdal 03/17 patient says tired from Risperdal in the morning so will switch to bedtime; remains with paranoid delusions; memory impairment. Very little insight Discussed case with team; discussed with nursing; reviewed vitals and WNL 03/18 no change in presentation; not open to further med changes. Patient used to be on Depakote but does not want to take it and refuses it Will need to discuss further with team. Patient seems to have memory impairment/cognitive dysfunction present since his stroke 2 years ago, Which according to collateral has not necessarily worsened. Patient also has some has paranoid delusional thinking. Seems to be a combination of both cognitive dysfunction and delusional thinking that brings him back to his house and violating restraining order. Patient is not currently under the care of a neurologist; commercial real estate underwriter discussed this with him any agrees to go, however his sister says he typically has no interest in doctor's appointments or medication. Patient lives at his sister's who cares for his needs; he has no history of violence or aggression towards anyone and is without any SI or HI. 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 Although patient is not in imminent risk for harm to himself or others, he risks getting arrested in prosecuted for violating restraining order. Need to talk with patient's ; will discuss further with team. -Discussed case with nursing; reviewed vitals and WNL 03/19 patient remains with paranoid delusions and without insight; he plans to continue going back to the house since in his mind, it is his house. Disorganized behavior in that he will stand [address] for long periods of time not engaging with others. Says he feels a little tired from the Risperdal but continues to take it. He says he will likely not take it once discharged. 03/20 patient remains without insight and has paranoid delusions. Now having received collateral from his estranged Romina, it is more clear that patient's behaviors in the community are threatening. Romina is now scared of him. He has tried to break into his 1/estranged 's house, has violated and no trespass order multiple times and has been subsequently arrested; the week prior to this admission, a Restraining order was enacted following a text patient sent to Romina which said she is not going to make it out alive. Patient than violated this restraining order. Patient has very little to no insight regarding his behaviors. Patient intends to continue going back to the house since he thinks it is his house and has paranoid, delusional concerns about his . Patient says he will not take medication once he leaves. At this time, patient is not safe for discharge. 03/21 no change; neuro consult pending [place] 03/22 refused MRI since paranoid 03/26 no change in presentation FORMULATION/IMPRESSION: Patient is a 57-year-old male with no psychiatric history prior to 2020. 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 Over the past 6-8 months, patient's memory and cognitive function has significantly worsened; patient has developed paranoid delusions and is without insight. Due to a combination of paranoid delusional thinking and cognitive impairment, Patient has been increasingly harassing his estranged . The harassment has worsened and over the past few weeks and patient's estranged is now afraid: he has tried to break into her house, violated a no trespass order, sent a cryptic, threatening text message and has violated a restraining order. Patient does not seem to have any insight that his behaviors are harassing or frightening or that he is operating from paranoid delusions. It seems likely there is some relationship between between patient's paranoid delusions, his cognitive decline and history of either aneurysm/stroke/coma, given the clear timeline. Patient needs further workup with help from Neurology to better assess. At this time patient remains unsafe to be in the community and requires inpatient level of care for treatment and containment for safety and medication management. Plan CV Q 15 minute checks 1. Psychotic symptoms/delusions 2/2 to medical illness (aneurysm/stroke...) vs organic etiology Increase to Risperdal 4 mg q.h.s. Neurology consult MRI ordered but pt refused to consent [place] Concern that patient may need a guardian -Records pending: need more detailed history of aneurysm/stroke/coma as reports are all from non clinicians and without pertinent details -some history of prescribed psychotropic medications: mirtazapine 15 mg, Depakote ER 750 mg -symptoms seem to be worsening over the past 5 months (it now seems less likely that patient was adherent with medications) 2. Cognitive disorder s/p stroke, brain aneurysm, myxedema coma? All in 2020: Reportedly present since stroke in 2020 -neurology consult 3. Hypothyroid: Continue levothyroxine 200mcg daily at 06:[address] Alberts; appreciate recommendations hx of myxedema coma Otherwise: Discontinue Levetiracetam: Patient says he has not been on that for almost a year and prescription history seems to support this. He says he does not want and it is to be discontinued. He denies any history of actually having a seizure but says this was started s/p thyroid coma as a prophylactic measure to prevent seizure Clear Coat Sprayer talked with Romina, patient's estranged (ANNETTE signed): Romina reports that up until around 2020 when he had his coma and mini strokes, patient was is regular self without any overt psychiatric symptoms; only on commercial real estate underwriter's further inquiry did she say there was maybe some intermittent, minimal/mild paranoia. 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 She says afterwards he had some rehab and some memory impairment but nowhere near as significant as it is now. She says over the next 6 months his memory problems worsened. At some point they and he went to live with his sister. She says that for the past 8 months his memory has continued to deteriorate. For the past year he has been calling her around 50 or 60 times a day and would send constant text messages all day long. Would frequently show up at her house (she reports the house is fully hers, in her name). She continues to care about him and hope that he would eventually stop coming over as she continually explained that their relationship was over. Once, she let him into the house to see his nephew but then he would not leave an she said it took enormous effort to get him out the door. Since then she has not let him in the house. Despite this, he kept coming over to the house daily, knocking for hours at a time. She knew patient was struggling and did not want him to add to his troubles and so hesitated to call the police. However patient continued to come over and then actually started trying to get into the house, once using a credit card. He would call her daughter and say he standing outside the house. Patient would also stand for hours and front of the house. Romina started to get scared. He tried to get into the house about 3 weeks ago, she call the police who issued a no trespassing order. He violated the order, was arrested and taken to [facility] for couple days; immediately on release he would back to the house and got arrested again. Released again, he went over to the house and stood outside of it. Last week, just before this admission, send a text message to Romina that said she is not going to make it out alive. After this the licensing services clerk put a restraining order on patient. He continued to violated, stating outside her house for hours; he left his sister's house and stayed at a friend's house near [place]ina and for hours and hours, in the rain, in the snow would inclusion internship front of her house, only going to his friend's house to sleep for a few hours and then to repeat the next day. Romina says this is what resulted in this admission. She says he accuses her of being an imposter on the phone; after interacting with the police he'll say they are not real document management consultant, they are scammers... She reiterates that he is getting scary and that she is now scared of him. She is relieved to know that is in the hospital in hopes he can get help. Regarding history of psychiatric admissions, Romina says that patient was admitted to a psychiatric hospital at least 2 times following suicide attempts, which also occurred soon after his aneurysm/stroke/coma. She says the the 1st attempt (not necessarily resulting in admission) was an intentional overdose from a bottle of pills. Second attempt was attempt to hang himself. Third attempt patient tried to cut his neck with a circular saw. Patient was admitted; required stitches only Of note, 's reporting corroborates with both patient's sister and with patient's own account Patient educated on: diagnosis and medical condition Informed Consent: does not understand and further education needed Reason for contiued inpatient stay Substantial Risk for: inability to function Time Spent With Patient Time: Total time managing care of this patient today ____ minutes.
[2022-03-26 18:01] VITALS: BP 133/75; PULSE 89; TEMP 37
[2022-03-26] MEDS: risperiDONE 3 MG TABLET PO (21:02)
[2022-03-27] MEDS: Levothyroxine Sodium 200 MCG TABLET PO (08:42)
[2022-03-27 12:00] VITALS: BP 111/70; PULSE 91; RESP 18; TEMP 36.4; O2SAT 97
--- NOTE | 2022-03-27 17:34 | P.PNPSI_ITS ---
Subjective Subjective Date of Service: 03/27/22 Reason For Visit: capgrass delusions Subjective Notes: Conditional Voluntary Healthcare Proxy: Yes (not activated ) Mental Status Exam Mental Status Exam Narrative: Pt superfically cooperative somewhat guarded pt anxious somewhat flat pt cannot explain reasons why he goes to his old house knows there was no trespass order but seems notto be able to logically connect consequences states went off thyroid medication because it seems like sugar seems apathetic to medical concerns and legal concerns would not elaboraye regarding imposters in family flat guarded suspicious of motives denies si hi Diagnostics Vital Signs (24Hr): Vital Signs - 24 hr 03/28/22 09:46 03/28/22 17:10 Temperature 97.8 F 98.1 F Pulse Rate 92 98 Respiratory Rate 16 Blood Pressure 124/68 133/85 Pulse Oximetry 99 96 Oxygen Delivery Method Room Air Room Air BMI result Body Mass Index 26.2 Labs 03/12/22 21:36 03/14/22 08:37 Imaging Radiology Impressions: ITS Impressions Head CT 03/12/22 20:45 IMPRESSION: 1. No acute intracranial pathology. Medications Medications Current Medications Acetaminophen (Acetaminophen 325 Mg Tablet) 650 mg PO Q6H PRN PRN Reason: Headache/Pain Mild Scale (1-3) Al Hydroxide/Mg Hydroxide (Magnesium Hydrox/Alum Hydrox 30 Ml Oral.Susp) 30 ml PO Q6H PRN PRN Reason: Heartburn/Nausea Hydroxyzine HCl (Hydroxyzine Hcl 25 Mg Tablet) 25 mg PO Q6H PRN PRN Reason: Anxiety Levothyroxine Sodium (Levothyroxine Sodium 200 Mcg Tablet) 200 mcg PO DAILY@0630 [facility] Last Admin: 03/28/22 08:06 Dose: 200 mcg Magnesium Hydroxide (Milk Of Magnesia 30 Ml Oral.Susp) 30 ml PO DAILY PRN PRN Reason: Constipation Risperidone (Risperidone 2 Mg Tablet) 4 mg PO BEDTIME [facility] Last Admin: 03/28/22 20:36 Dose: 4 mg Trazodone HCl (Trazodone Hcl 50 Mg Tablet) 50 mg PO BEDTIME PRN PRN Reason: Insomnia Allergies Allergies Allergy/AdvReac Type Severity Reaction Status Date / Time amoxicillin [AMOXICILLIN] Allergy Unknown VOMITING/ABD Unverified 11/19/19 19:25 PAIN Assessment & Plan Assessment & Plan (1) Cognitive and behavioral changes: Status: Acute Code(s): R41.89 - Other symptoms and signs involving cognitive functions and awareness; R46.89 - Other symptoms and signs involving appearance and behavior (2) Delusional disorder: Status: Acute Code(s): F22 - Delusional disorders (3) Hypothyroidism: Status: Acute Code(s): E03.9 - Hypothyroidism, unspecified Plan HPI: Patient is a 57-year-old male on a 12b with a history of hypothyroid disorder/thyroid coma, stroke and brain aneurysm who presents to the emergency room reportedly after his friends to come to a clinic, concern for his memory impairment, delusional thinking (about people being imposters), not taking medications and poor ADLs. Patient is a poor historian and collateral as necessary to further assess. -He has history of stroke and other comorbidities that could influence cogn ition. Collateral is necessary to figure out the timelines of his memory impairment and whether it has worsened. Also, will need history from Neurology to see what imaging has been done -patient does have some paranoid delusional thoughts; he is vague about them. He does look moderately disheveled however he does not appear overtly disorganized at this time -significantly elevated TSH; he does say he takes his thyroid medication daily but will need collateral -although he says he scared about his memory impairment, he denies all other psychiatric symptoms. -will consult with endocrinology regarding elevated TSH Hospital course: 03/15 Collateral helpful and reveals that he is having psychotic symptoms and is confused, possibly in the face of going off psychiatric medications; sister will try to get a hold of recent medication list; resume writer did try to call patient's PCP Dr. Hatfield but was unable to connect (ANNETTE Signed). Hypothyroidism due to noncompliance with medication. Memory loss present since stroke 03/16 will start Risperdal 03/17 patient says tired from Risperdal in the morning so will switch to bedtime; remains with paranoid delusions; memory impairment. Very little insight Discussed case with team; discussed with nursing; reviewed vitals and WNL 03/18 no change in presentation; not open to further med changes. Patient used to be on Depakote but does not want to take it and refuses it Will need to discuss further with team. Patient seems to have memory impairment/cognitive dysfunction present since his stroke 2 years ago, Which according to collateral has not necessarily worsened. Patient also has some has paranoid delusional thinking. Seems to be a combination of both cognitive dysfunction and delusional thinking that brings him back to his house and violating restraining order. Patient is not currently under the care of a neurologist; resume writer discussed this with him any agrees to go, however his sister says he typically has no interest in doctor's appointments or medication. Patient lives at his sister's who cares for his needs; he has no history of violence or aggression towards anyone and is without any SI or HI. His intent ion of going to the ex-'s house (which he does own) is triggered by delusional thinking, but appears benign and is mostly to see if she is okay and out of concern for the house. Although patient is not in imminent risk for harm to himself or others, he risks getting arrested in prosecuted for violating restraining order. Need to talk with patient's ; will discuss further with team. -Discussed case with nursing; reviewed vitals and WNL 03/19 patient remains with paranoid delusions and without insight; he plans to continue going back to the house since in his mind, it is his house. D isorganized behavior in that he will stand [address] for long periods of time not engaging with others. Says he feels a little tired from the Risperdal but continues to take it. He says he will likely not take it once discharged. 03/20 patient remains without insight and has paranoid delusions. Now having received collateral from his estranged Romina, it is more clear that patient's behaviors in the community are threatening. Romina is now scared of him. He has tried to break into his 1/estranged 's house, has violated and no trespass order multiple times and has been subsequently arrested; the week prior to this admission, a Restraining order was enacted following a text patient sent to Romina which said she is not going to make it out alive. Patient than violated this restraining order. Patient has very little to no insight regarding his behaviors. Patient intends to continue going back to the house since he thinks it is his house and has paranoid, delusional concerns about his . Patient says he will not take medication once he leaves. At this time, patient is not safe for discharge. 03/21 no change; neuro consult pending Doyle 03/22 refused MRI since paranoid 03/26 no change in presentation 03/27/21 pt seen case reviewed extensively with dr heart denies thoughts to harm his or himself but guarded illogical has generally not had insight into medical condition or psych condition ? paranoia and misinterpetation post coma ? neuro ck mri encourage larose hopefully will improve judgement reasoning decrease risk post d/c may benefit from vna ? consider invoke hcp or guardianship at some point FORMULATION/IMPRESSION: Patient is a 57-year-old male with no psychiatric history prior to 2020. 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 Over the past 6-8 months, patient's memory and cognitive function has significantly worsened; patient has developed paranoid delusions and is without insight. Due to a combination of paranoid delusional thinking and cognitive impairment, Patient has been increasingly harassing his estranged . The harassment has worsened and over the past few weeks and patient's estranged is now afraid: he has tried to break into her house, violated a no trespass order, sent a cryptic, threatening text message and has violated a restraining order. Patient does not seem to have any insight that his behaviors are harassing or frightening or that he is operating from paranoid delusions. It seems likely there is some relationship between between patient's paranoid delusions, his cognitive decline and history of either aneurysm/stroke/coma, given the clear timeline. Patient needs further workup with help from Neurology to better assess. At this time patient remains unsafe to be in the community and requires inpatient level of care for treatment and containment for safety and medication management. Plan CV Q 15 minute checks 1. Psychotic symptoms/delusions 2/2 to medical illness (aneurysm/stroke...) vs organic etiology Increase to Risperdal 4 mg q.h.s. Neurology consult MRI ordered but pt refused to consent Doyle Concern that patient may need a guardian -Records pending: need more detailed history of aneurysm/stroke/coma as reports are all from non clinicians and without pertinent details -some history of prescribed psychotropic medications: mirtazapine 15 mg, Depakote ER 750 mg -symptoms seem to be worsening over the past 5 months (it now seems less likely that patient was adherent with medications) 2. Cognitive disorder s/p stroke, brain aneurysm, myxedema coma? All in 2020: Reportedly present since stroke in 2020 -neurology consult -MRI ordered; consent signed 3. Hypothyroid: Continue levothyroxine 200mcg daily at 06:[address] Alberts; appreciate recommendations hx of myxedema coma Otherwise: Discontinue Levetiracetam: Patient says he has not been on that for almost a year and prescription history seems to support this. He says he does not want and it is to be discontinued. He denies any history of actually having a seizure but says this was started s/p thyroid coma as a prophylactic measure to prevent seizure Oil Agent talked with Romina, patient's estranged (ANNETTE signed): Romina reports that up until around 2020 when he had his coma and mini strokes, patient was is regular self without any overt psychiatric symptoms; only on resume writer's further inquiry did she say there was maybe some intermittent, minimal/mild paranoia. 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 She says afterwards he had some rehab and some memory impairment but nowhere near as significant as it is now. She says over the next 6 months his memory problems worsened. At some point they and he went to live with his sister. She says that for the past 8 months his memory has continued to deteriorate. For the past year he has been calling her around 50 or 60 times a day and would send constant text messages all day long. Would frequently show up at her house (she reports the house is fully hers, in her name). She continues to care about him and hope that he would eventually stop coming over as she continually explained that their relationship was over. Once, she let him into the house to see his nephew but then he would not leave an she said it took enormous effort to get him out the door. Since then she has not let him in the house. Despite this, he kept coming over to the house daily, knocking for hours at a time. She knew patient was struggling and did not want him to add to his troubles and so hesitated to call the police. However patient continued to come over and then actually started trying to get into the house, once using a credit card. He would call her daughter and say he standing outside the house. Patient would also stand for hours and front of the house. Romina started to get scared. He tried to get into the house about 3 weeks ago, she call the police who issued a no trespassing order. He violated the order, was arrested and taken to [facility] for couple days; immediately on release he would back to the house and got arrested again. Released again, he went over to the house and stood outside of it. Last week, just before this admission, send a text message to Romina that said she is not going to make it out alive. After this the automotive warranty administrator put a restraining order on patient. He continued to violated, stating outside her house for hours; he left his sister's house and stayed at a friend's house near Romina and for hours and hours, in the rain, in the snow would kinder teacher front of her house, only going to his friend's house to sleep for a few hours and then to repeat the next day. Romina says this is what resulted in this admission. She says he accuses her of being an imposter on the phone; after interacting with the police he'll say they are not real real estate photographer, they are scammers... She reiterates that he is getting scary and that she is now scared of him. She is relieved to know that is in the hospital in hopes he can get help. Regarding history of psychiatric admissions, Romina says that patient was admitted to a psychiatric hospital at least 2 times following suicide attempts, which also occurred soon after his aneurysm/stroke/coma. She says the the 1st attempt (not necessarily resulting in admission) was an intentional overdose from a bottle of pills. Second attempt was attempt to hang himself. Third attempt patient tried to cut his neck with a circular saw. Patient was admitted; required stitches only Of note, 's reporting corroborates with both patient's sister and with patient's own account Reason for contiued inpatient stay Substantial Risk for: harm to others, inability to function, rapid decompensation and med/psych decompensation Time Spent With Patient Time: Total time managing care of this patient today ____ minutes.
[2022-03-27 18:43] VITALS: BP 125/68; PULSE 90; RESP 16; TEMP 37.1; O2SAT 97
[2022-03-27] MEDS: risperiDONE 2 MG TABLET 4 MG PO (22:07)
[2022-03-28] MEDS: Levothyroxine Sodium 200 MCG TABLET PO (08:06)
[2022-03-28 09:46] VITALS: BP 124/68; PULSE 92; RESP 16; TEMP 36.6; O2SAT 99
--- NOTE | 2022-03-28 14:36 | P.PNPSI_ITS ---
Subjective Subjective Date of Service: 03/28/22 Reason For Visit: capgrass delusions Interim History: met w/ patient; discussed with team; discussed with dr. larson; reviewed medical progress notes from [facility] pt signed consent for MRI; he shared how anxiety provoking it is to sign p aperwork when he worries he might be being tricked somehow. Senior Devops Engineer read outloud the consent form which he says he understands (and was able to answer all questions; able to read it himself) but says he can't help worrying. Pt says he trusts short story writer and was thankful for writers patience. Pt said he hopes that his will allow him to come back to the house and thinks she might be willing to; however, he also says that if she does not, he'll have to abide by the restraining order. Senior Devops Engineer inquires further, asking if pt will desist from going to the house. Pt corrects short story writer and says he's vicki ated to stay 50 feet away, which is written right on the order which I have in my jacket pocket. He says he will abide it and i have to...i have no choice...I don't want to go to prison. Of note, this is first time patient has clearly stated that he will abide by the restraining order and himself articulated that rules regarding restraining order. pt commented on continued worries that the people he talks to on phone, identifed as sister or , may be imposters; he is not sure, but the way the talked was different... further reviewed notes from [facility] regarding MRI and discussed with patient. 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 Mental Status Exam Mental Status Exam Narrative: Pt is alert and oriented; behavior is cooperative, friendly enough on approach and calm, but also disorganized, often standing in one place in hallway for extended periods of time; patient is not in distress; dressed in casual attire, clean cloths, adequate hygiene; mood is described as ok affect blunted; eye contact appropriate; Speech is normal rate, volume and prosody and not pressured; some psychomotor retardation present; thought process is goal directed but concrete; Thought content is on paranoid delusions; some anxiety over memory impairment; he is able to be pertinent to relevant topics when asked; denies any SI/HI. Does not seem internally preoccupied; and he denies AVH. Memory impairment significant Patients insight and judgment impaired. Diagnostics Vital Signs (24Hr): Vital Signs - 24 hr 03/27/22 18:43 03/28/22 09:46 Temperature 98.8 F 97.8 F Pulse Rate 90 92 Respiratory Rate 16 16 Blood Pressure 125/68 124/68 Pulse Oximetry 97 99 Oxygen Delivery Method Room Air Room Air BMI result Body Mass Index 26.2 Labs 03/12/22 21:36 03/14/22 08:37 Imaging Radiology Impressions: ITS Impressions Head CT 03/12/22 20:45 IMPRESSION: 1. No acute intracranial pathology. Medications Medications Current Medications Acetaminophen (Acetaminophen 325 Mg Tablet) 650 mg PO Q6H PRN PRN Reason: Headache/Pain Mild Scale (1-3) Al Hydroxide/Mg Hydroxide (Magnesium Hydrox/Alum Hydrox 30 Ml Oral.Susp) 30 ml PO Q6H PRN PRN Reason: Heartburn/Nausea Hydroxyzine HCl (Hydroxyzine Hcl 25 Mg Tablet) 25 mg PO Q6H PRN PRN Reason: Anxiety Levothyroxine Sodium (Levothyroxine Sodium 200 Mcg Tablet) 200 mcg PO DAILY@0630 [facility] Last Admin: 03/28/22 08:06 Dose: 200 mcg Magnesium Hydroxide (Milk Of Magnesia 30 Ml Oral.Susp) 30 ml PO DAILY PRN PRN Reason: Constipation Risperidone (Risperidone 2 Mg Tablet) 4 mg PO BEDTIME [facility] Last Admin: 03/27/22 22:07 Dose: 4 mg Trazodone HCl (Trazodone Hcl 50 Mg Tablet) 50 mg PO BEDTIME PRN PRN Reason: Insomnia Allergies Allergies Allergy/AdvReac Type Severity Reaction Status Date / Time amoxicillin [AMOXICILLIN] Allergy Unknown VOMITING/ABD Unverified 11/19/19 19:25 PAIN Assessment & Plan Assessment & Plan (1) Cognitive and behavioral changes: Status: Acute Code(s): R41.89 - Other symptoms and signs involving cognitive functions and awareness; R46.89 - Other symptoms and signs involving appearance and behavior (2) Delusional disorder: Status: Acute Code(s): F22 - Delusional disorders (3) Hypothyroidism: Status: Acute Code(s): E03.9 - Hypothyroidism, unspecified Plan HPI: Patient is a 57-year-old male on a 12b with a history of hypothyroid disorder/thyroid coma, stroke and brain aneurysm who presents to the emergency room reportedly after his friends to come to a clinic, concern for his memory impairment, delusional thinking (about people being imposters), not taking medications and poor ADLs. Patient is a poor historian and collateral as necessary to further assess. -He has history of stroke and other comorbidities that could influence cognition. Collateral is necessary to figure out the timelines of his memory impairment and whether it has worsened. Also, will need history from Neurology to see what imaging has been done -patient does have some paranoid delusional thoughts; he is vague about them. He does look moderately disheveled however he does not appear overtly disorganized at this time -significantly elevated TSH; he does say he takes his thyroid medication daily but will need collateral -although he says he scared about his memory impairment, he denies all other psychiatric symptoms. -will consult with endocrinology regarding elevated TSH Hospital course: 03/15 Collateral helpful and reveals that he is having psychotic symptoms and is confused, possibly in the face of going off psychiatric medications; sister will try to get a hold of recent medication list; short story writer did try to call patient's PCP Dr. Hatfield but was unable to connect (ANNETTE Signed). Hypothyroidism due to noncompliance with medication. Memory loss present since stroke 03/16 will start Risperdal 03/17 patient says tired from Risperdal in the morning so will switch to bedtime; remains with paranoid delusions; memory impairment. Very little insight Discussed case with team; discussed with nursing; reviewed vitals and WNL 03/18 no change in presentation; not open to further med changes. Patient used to be on Depakote but does not want to take it and refuses it Will need to discuss further with team. Patient seems to have memory impairment/cognitive dysfunction present since his stroke 2 years ago, Which according to collateral has not necessarily worsened. Patient also has some has paranoid delusional thinking. Seems to be a combination of both cognitive dysfunction and delusional thinking that brings him back to his house and violating restraining order. Patient is not currently under the care of a neurologist; short story writer discussed this with him any agrees to go, however his sister says he typically has no interest in doctor's appointments or medication. Patient lives at his sister's who cares for his needs; he has no history of violence or aggression towards anyone and is without any SI or HI. 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 Although patient is not in imminent risk for harm to himself or others, he risks getting arrested in prosecuted for violating restraining order. Need to talk with patient's ; will discuss further with team. -Discussed case with nursing; reviewed vitals and WNL 03/19 patient remains with paranoid delusions and without insight; he plans to continue going back to the house since in his mind, it is his house. Disorganized behavior in that he will stand [address] for long periods of time not engaging with others. Says he feels a little tired from the Risperdal but continues to take it. He says he will likely not take it once discharged. 03/20 patient remains without insight and has paranoid delusions. Now having received collateral from his estranged Romina, it is more clear that patient's behaviors in the community are threatening. Romina is now scared of him. He has tried to break into his 1/estranged 's house, has violated and no trespass order multiple times and has been subsequently arrested; the week prior to this admission, a Restraining order was enacted following a text patient sent to Romina which said she is not going to make it out alive. Patient than violated this restraining order. Patient has very little to no insight regarding his behaviors. Patient intends to continue going back to the house since he thinks it is his house and has paranoid, delusional concerns about his . Patient says he will not take medication once he leaves. At this time, patient is not safe for discharge. 03/21 no change; neuro consult pending [facility] 03/22 refused MRI since paranoid 03/26 no change in presentation 03/28 some improvement; for the first time he clearly articulates knowledge of the restraining order, the rules he must obey and the consequence of violating it. He says he will abide by it and that he has no choice. Pt thinks maybe his will let him come back to the house, but is open to the idea that he may be wrong. -consents to MRI he says he'll have to abide by the restraining order. Senior Devops Engineer inquires further, asking if pt will desist from going to the house. Pt corrects short story writer and says he's mandated to stay 50 feet away, which is written right on the order which I have in my jacket pocket. He says he will abide it and i have to...i have no choice...I don't want to go to prison. Of note, this is first time patient has clearly stated that he will abide by the restraining order and himself articulated that rules regarding restraining order. Hopefully this guido increased insight possibly due to Risperdal which would be encouraging if there is a treatment that can help patient be more safe in the community. FORMULATION/IMPRESSION: Patient is a 57-year-old male with no psychiatric history prior to 2020. 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 Over the past 6-8 months, patient's memory and cognitive function has significantly worsened; patient has developed paranoid delusions and is with out insight. Due to a combination of paranoid delusional thinking and cognitive impairment, Patient has been increasingly harassing his estranged . The harassment has worsened and over the past few weeks and patient's estranged is now afraid: he has tried to break into her house, violated a no trespass order, sent a cryptic, threatening text message and has violated a restraining order. Patient does not seem to have any insight that his behaviors are harassing or frightening or that he is operating from paranoid delusions. It seems likely there is some relationship between between patient's paranoid delusions, his cognitive decline and history of either aneurysm/stroke/coma, given the clear timeline. Patient needs further workup with help from Neurology to better assess. At this time patient remains unsafe to be in the community and requires inpatient level of care for treatment and containment for safety and medication management. Plan CV Q 15 minute checks 1. Psychotic symptoms/delusions 2/2 to medical illness (aneurysm/stroke...) vs organic etiology Increase to Risperdal 4 mg q.h.s. Neurology consult MRI ordered but pt refused to consent [facility] Concern that patient may need a guardian -Records pending: need more detailed history of aneurysm/stroke/coma as reports are all from non clinicians and without pertinent details -some history of prescribed psychotropic medications: mirtazapine 15 mg, Depakote ER 750 mg -symptoms seem to be worsening over the past 5 months (it now seems less likely that patient was adherent with medications) 2. Cognitive disorder s/p stroke, brain aneurysm, myxedema coma? All in 2020: Reportedly present since stroke in 2020 -neurology consult -MRI ordered; consent signed 3. Hypothyroid: Continue levothyroxine 200mcg daily at 06:30 discussed with chairman & chief executive officer Dr. 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 He says he does not want and it is to be discontinued. He denies any history of actually having a seizure but says this was started s/p thyroid coma as a prophylactic measure to prevent seizure Senior Devops Engineer talked with Romina, patient's estranged (ANNETTE signed): Romina reports that up until around 2020 when he had his coma and mini strokes, patient was is regular self without any overt psychiatric symptoms; only on short story writer's further inquiry did she say there was maybe some intermittent, minimal/mild paranoia. 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 She says afterwards he had some rehab and some memory impairment but nowhere near as significant as it is now. She says over the next 6 months his memory problems worsened. At some point they and he went to live with his sister. She says that for the past 8 months his memory has continued to deteriorate. For the past year he has been calling her around 50 or 60 times a day and would send constant text messages all day long. Would frequently show up at her house (she reports the house is fully hers, in her name). She continues to care about him and hope that he would eventually stop coming over as she continually explained that their relationship was over. Once, she let him into the house to see his nephew but then he would not leave an she said it took enormous effort to get him out the door. Since then she has not let him in the house. Despite this, he kept coming over to the house daily, knocking for hours at a time. She knew patient was struggling and did not want him to add to his troubles and so hesitated to call the police. However patient continued to come over and then actually s tarted trying to get into the house, once using a credit card. He would call her daughter and say he standing outside the house. Patient would also stand for hours and front of the house. Romina started to get scared. He tried to get into the house about 3 weeks ago, she call the police who issued a no trespassing order. He violated the order, was arrested and taken to [facility] for couple days; immediately on release he would back to the house and got arrested again. Released again, he went over to the house and stood outside of it. Last week, just before this admission, send a text message to Romina that said she is not going to make it out alive. After this the research dairy farm supervisor put a res training order on patient. He continued to violated, stating outside her house for hours; he left his sister's house and stayed at a friend's house near Romina'[place] and for hours and hours, in the rain, in the snow would assistant professor in family studies front of her house, only going to his friend's house to sleep for a few hours and then to repeat the next day. Romina says this is what resulted in this admission. She says he accuses her of being an imposter on the phone; after interacting with the police he'll say they are not real shopper's aide, they are scammers... She reiterates that he is getting scary and that she is now scared of him. She is relieved to know that is in the hospital in hopes he can get help. Regarding history of psychiatric admissions, Romina says that patient was admitted to a psychiatric hospital at least 2 times following suicide attempts, which also occurred soon after his aneurysm/stroke/coma. She says the the 1st attempt (not necessarily resulting in admission) was an intentional overdose from a bottle of pills. Second attempt was attempt to hang himself. Third attempt patient tried to cut his neck with a circular saw. Patient was admitted; required stitches only Of note, 's reporting corroborates with both patient's sister and with patient's own account Patient educated on: diagnosis and medical condition Informed Consent: understands, does not understand and further education needed Reason for contiued inpatient stay Substantial Risk for: rapid decompensation Time Spent With Patient Time: Total time managing care of this patient today ____ minutes.
[2022-03-28 17:10] VITALS: BP 133/85; PULSE 98; TEMP 36.7; O2SAT 96
[2022-03-28] MEDS: risperiDONE 2 MG TABLET 4 MG PO (20:36)
[2022-03-29] MEDS: Levothyroxine Sodium 200 MCG TABLET PO (08:33)
[2022-03-29 09:30] VITALS: BP 112/72; PULSE 92; RESP 16; TEMP 36.8; O2SAT 96
--- NOTE | 2022-03-29 10:09 | P.PNPSI_ITS ---
Subjective Subjective Date of Service: 03/29/22 Reason For Visit: capgrass delusions Interim History: met w/ patient; discussed in teams continues to agree to MRI. Regarding hx of stroke, pt says it was never dx by physician; he said one day he was at home, passed out and it's what he assumed was a mini stroke. Never went to hospital and did not discuss w/ PCP. Mental Status Exam Mental Status Exam Narrative: Pt is alert and oriented; behavior is cooperative, friendly enough on approach and calm, but also disorganized, often standing in one place in hallway for extended periods of time; patient is not in distress; dressed in casual attire, clean cloths, adequate hygiene; mood is described as ok affect blunted; eye contact appropriate; Speech is normal rate, volume and prosody and not pressured; some psychomotor retardation present; thought process is goal di rected but concrete; Thought content is on paranoid delusions; some anxiety over memory impairment; he is able to be pertinent to relevant topics when asked; denies any SI/HI. Does not seem internally preoccupied; and he denies AVH. Memory impairment significant Patients insight and judgment impaired. Diagnostics Vital Signs (24Hr): Vital Signs - 24 hr 03/28/22 17:10 03/29/22 09:30 Temperature 98.1 F 98.3 F Pulse Rate 98 92 Respiratory Rate 16 Blood Pressure 133/85 112/72 Pulse Oximetry 96 96 Oxygen Delivery Method Room Air Room Air BMI result Body Mass Index 26.2 Labs 03/12/22 21:36 03/14/22 08:37 Imaging Radiology Impressions: ITS Impressions Head CT 03/12/22 20:45 IMPRESSION: 1. No acute intracranial pathology. Medications Medications Current Medications Acetaminophen (Acetaminophen 325 Mg Tablet) 650 mg PO Q6H PRN PRN Reason: Headache/Pain Mild Scale (1-3) Al Hydroxide/Mg Hydroxide (Magnesium Hydrox/Alum Hydrox 30 Ml Oral.Susp) 30 ml PO Q6H PRN PRN Reason: Heartburn/Nausea Hydroxyzine HCl (Hydroxyzine Hcl 25 Mg Tablet) 25 mg PO Q6H PRN PRN Reason: Anxiety Levothyroxine Sodium (Levothyroxine Sodium 200 Mcg Tablet) 200 mcg PO DAILY@0630 [facility] Last Admin: 03/29/22 08:33 Dose: 200 mcg Magnesium Hydroxide (Milk Of Magnesia 30 Ml Oral.Susp) 30 ml PO DAILY PRN PRN Reason: Constipation Risperidone (Risperidone 2 Mg Tablet) 4 mg PO BEDTIME MANAS Last Admin: 03/28/22 20:36 Dose: 4 mg Trazodone HCl (Trazodone Hcl 50 Mg Tablet) 50 mg PO BEDTIME PRN PRN Reason: Insomnia Allergies Allergies Allergy/AdvReac Type Severity Reaction Status Date / Time amoxicillin [AMOXICILLIN] Allergy Unknown VOMITING/ABD Unverified 11/19/19 19:25 PAIN Assessment & Plan Assessment & Plan (1) Cognitive and behavioral changes: Status: Acute Code(s): R41.89 - Other symptoms and signs involving cognitive functions and awareness; R46.89 - Other symptoms and signs involving appearance and behavior (2) Delusional disorder: Status: Acute Code(s): F22 - Delusional disorders (3) Hypothyroidism: Status: Acute Code(s): E03.9 - Hypothyroidism, unspecified Plan HPI: Patient is a 57-year-old male on a 12b with a history of hypothyroid disorder/thyroid coma, stroke and brain aneurysm who presents to the emergency room reportedly after his friends to come to a clinic, concern for his memory impairment, delusional thinking (about people being imposters), not taking medications and poor ADLs. Patient is a poor historian and collateral as necessary to further assess. -He has history of stroke and other comorbidities that could influence cognition. Collateral is necessary to figure out the timelines of his memory impairment and whether it has worsened. Also, will need history from Neurology to see what imaging has been done -patient does have some paranoid delusional thoughts; he is vague about them. He does look moderately disheveled however he does not appear overtly disorganized at this time -significantly elevated TSH; he does say he takes his thyroid medication daily but will need collateral -although he says he scared about his memory impairment, he denies all other psychiatric symptoms. -will consult with endocrinology regarding elevated TSH Hospital course: 03/15 Collateral helpful and reveals that he is having psychotic symptoms and is confused, possibly in the face of going off psychiatric medications; sister will try to get a hold of recent medication list; policy writer typist did try to call patient's PCP Dr. Hatfield but was unable to connect (ANNETTE Signed). Hypothyroidism due to noncompliance with medication. Memory loss present since stroke 03/16 will start Risperdal 03/17 patient says tired from Risperdal in the morning so will switch to bedtime; remains with paranoid delusions; memory impairment. Very little insight Discussed case with team; discussed with nursing; reviewed vitals and WNL 03/18 no change in presentation; not open to further med changes. Patient used to be on Depakote but does not want to take it and refuses it Will need to discuss further with team. Patient seems to have memory impairment/cognitive dysfunction present since his stroke 2 years ago, Which according to collateral has not necessarily worsened. Patient also has some has paranoid delusional thinking. Seems to be a combination of both cognitive dysfunction and delusional thinking that brings him back to his house and violating restraining order. Patient is not currently under the care of a neurologist; policy writer typist discussed this with him any agrees to go, however his sister says he typically has no interest in doctor's appointments or medication. Patient lives at his sister's who cares for his needs; he has no history of violence or aggression towards anyone and is without any SI or HI. 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 Although patient is not in imminent risk for harm to himself or others, he risks getting arrested in prosecuted for violating restraining order. Need to talk with patient's ; will discuss further with team. -Discussed case with nursing; reviewed vitals and WNL 03/19 patient remains with paranoid delusions and without insight; he plans to continue going back to the house since in his mind, it is his house. Disorganized behavior in that he will stand [address] for long periods of time not engaging with others. Says he feels a little tired from the Risperdal but c ontinues to take it. He says he will likely not take it once discharged. 03/20 patient remains without insight and has paranoid delusions. Now having received collateral from his estranged Romina, it is more clear that patient's behaviors in the community are threatening. Romina is now scared of him. He has tried to break into his 1/estranged 's house, has violated and no trespass order multiple times and has been subsequently arrested; the week prior to this admission, a Restraining order was enacted following a text patient sent to Romina which said she is not going to make it out alive. Patient than violated this restraining order. Patient has very little to no insight regarding his behaviors. Patient intends to continue going back to the house since he thinks it is his house and has paranoid, delusional concerns about his . Patient says he will not take medication once he leaves. At this time, patient is not safe for discharge. 03/21 no change; neuro consult pending [place] 03/22 refused MRI since paranoid 03/26 no change in presentation 03/28 some improvement; for the first time he clearly articulates knowledge of the restraining order, the rules he must obey and the consequence of violating it. He says he will abide by it and that he has no choice. Pt thinks maybe his will let him come back to the house, but is open to the idea that he may be wrong. -consents to MRI he says he'll have to abide by the restraining order. Sky Cap inquires further, asking if pt will desist from going to the house. Pt corrects policy writer typist and says he's mandated to stay 50 feet away, which is written right on the order which I have in my jacket pocket. He says he will abide it and i have to...i have no choice...I don't want to go to nursing home. Of note, this is first time patient has clearly stated that he will abide by the restraining order and himself articulat ed that rules regarding restraining order. Hopefully this guido increased insight possibly due to Risperdal which would be encouraging if there is a treatment that can help patient be more safe in the community. 03/29 went for MRI FORMULATION/IMPRESSION: Patient is a 57-year-old male with no psychiatric history prior to 2020. 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 Over the past 6-8 months, patient's memory and cognitive function has significantly worsened; patient has developed paranoid delusions and is without insight. Due to a combination of paranoid delusional thinking and c ognitive impairment, Patient has been increasingly harassing his estranged . The harassment has worsened and over the past few weeks and patient's estranged is now afraid: he has tried to break into her house, violated a no trespass order, sent a cryptic, threatening text message and has violated a restraining order. Patient does not seem to have any insight that his behaviors are harassing or frightening or that he is operating from paranoid delusions. It seems likely there is some relationship between between patient's paranoid delusions, his cognitive decline and history of either aneurysm/stroke/coma, given the clear timeline. Patient needs further workup with help from Neurology to better assess. At this time patient remains unsafe to be in the community and requires inpatient level of care for treatment and containment for safety and medication management. Plan CV Q 15 minute checks 1. Psychotic symptoms/delusions 2/2 to medical illness (aneurysm/stroke...) vs organic etiology Increase to Risperdal 4 mg q.h.s. Neurology consult MRI ordered but pt refused to consent [place] Concern that patient may need a guardian -Records pending: need more detailed history of aneurysm/stroke/coma as reports are all from non clinicians and without pertinent details -some history of prescribed psychotropic medications: mirtazapine 15 mg, Depakote ER 750 mg -symptoms seem to be worsening over the past 5 months (it now seems less likely that patient was adherent with medications) 2. Cognitive disorder s/p stroke, brain aneurysm, myxedema coma? All in 2020: Reportedly present since stroke in 2020 -neurology consult -MRI ordered; consent signed 3. Hypothyroid: Continue levothyroxine 200mcg daily at 06:[address] 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 He says he does not want and it is to be discontinued. He denies any history of actually having a seizure but says this was started s/p thyroid coma as a prophylactic measure to prevent seizure [place] talked with Romina, patient's estranged (ANNETTE signed): Romina reports that up until around 2020 when he had his coma and mini strokes, patient was is regular self without any overt psychiatric symptoms; only on policy writer typist's further inquiry did she say there was maybe some intermittent, minimal/mild paranoia. 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 She says afterwards he had some rehab and some memory impairment but nowhere near as significant as it is now. She says over the next 6 months his memory problems worsened. At some point they and he went to live with his sister. She says that for the past 8 months his memory has continued to deteriorate. For the past year he has been calling her around 50 or 60 times a day and would send constant text messages all day long. Would frequently show up at her house (she reports the house is fully hers, in her name). She continues to care about him and hope that he would eventually stop coming over as she continually explained that their relationship was over. Once, she let him into the house to see his nephew but then he would not leave an she said it took enormous effort to get him out the door. Since then she has not let him in the house. Despite this, he kept coming over to the house daily, knocking for hours at a time. She knew patient was struggling and did not want him to add to his troubles and so hesitated to call the police. However patient continued to come over and then actually started trying to get into the house, once using a credit card. He would call her daughter and say he standing outside the house. Patient would also stand for hours and front of the house. Romina started to get scared. He tried to get into the house about 3 weeks ago, she call the police who issued a no trespassing order. He violated the order, was arrested and [facility]; immediately on release he would back to the house and got arrested again. Released again, he went over to the house and stood outside of it. Last week, just before this admission, send a text message to Romina that said she is not going to make it out alive. After this the inspector grain mill products put a restraining order on patient. He continued to violated, stating outside her house for hours; he left his sister's house and stayed at a friend's house near Romina's and for hours and hours, in the rain, in the snow would veterinary medical officer front of her house, only going to his friend's house to sleep for a few hours and then to repeat the next day. Romina says this is what resulted in this admission. She says he accuses her of being an imposter on the phone; after interacting wit h the police he'll say they are not real chief knowledge officer, they are scammers... She reiterates that he is getting scary and that she is now scared of him. She is relieved to know that is in the hospital in hopes he can get help. Regarding history of psychiatric admissions, Romina says that patient was admit seth to a psychiatric hospital at least 2 times following suicide attempts, which also occurred soon after his aneurysm/stroke/coma. She says the the 1st attempt (not necessarily resulting in admission) was an intentional overdose from a bottle of pills. Second attempt was attempt to hang himself. Third attempt patient tried to cut his neck with a circular saw. Patient was admitted; required stitches only Of note, 's reporting corroborates with both patient's sister and with patient's own account Patient educated on: medication risk/benefits Informed Consent: understands and further education needed Reason for contiued inpatient stay Substantial Risk for: rapid decompensation Time Spent With Patient Time: Total time managing care of this patient today ____ minutes.
[2022-03-29 18:05] VITALS: BP 124/73; PULSE 93; RESP 16; TEMP 36.3; O2SAT 96
[2022-03-29] MEDS: risperiDONE 2 MG TABLET 4 MG PO (21:05)
[2022-03-30] MEDS: Levothyroxine Sodium 200 MCG TABLET PO (06:31)
[2022-03-30 09:02] VITALS: BP 120/69; PULSE 91; RESP 16; TEMP 36.9; O2SAT 96
--- NOTE | 2022-03-30 15:11 | HO.PSYCHPN ---
Subjective Subjective Date of Service: 03/30/22 Reason For Visit: capgrass delusions Interim History: met w/patient; discussed in teams; talked w/ sister; reviewed MRI with patient. sister says she'll take him back if he agrees to take his meds and go to appointments. 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 pt continues to report that he believes sister/ could be imposters based on their phone conversations; he says they probably aren't but he's always a little suspicious. Talked to his and when asked about grandchild, all she said was the he's fine which made him suspcious. He says he thinks his will let him come back to the house. But that otherwise he'll go to stay at this sisters. Intially patient agreed to take Invega, but later refused. ambivalent about whether he'll get another TSH repeat lab Mental Status Exam Mental Status Exam Narrative: Pt is alert and oriented; behavior is cooperative, friendly enough on approach and calm, but also disorganized, often standing in one place in hallway for extended periods of time; patient is not in distress; dressed in casual attire, clean cloths, adequate hygiene; mood is described as ok affect blunted; eye contact appropriate; Speech is normal rate, volume and prosody and not pressured; some psychomotor retardation present; thought process is goal directed but concrete; Thought content is on paranoid delusions; some anxiety over memory impairment; he is able to be pertinent to relevant topics when asked; denies any SI/HI. Does not seem internally preoccupied; and he denies AVH. Memory impairment significant Patients insight and judgment impaired. Diagnostics Vital Signs (24Hr): Vital Signs - 24 hr 03/29/22 18:05 03/30/22 09:02 Temperature 97.4 F 98.4 F Pulse Rate 93 91 Respiratory Rate 16 16 Blood Pressure 124/73 120/69 Pulse Oximetry 96 96 Oxygen Delivery Method Room Air Room Air BMI result Body Mass Index 26.2 Labs 03/12/22 21:36 03/14/22 08:37 Imaging Radiology Impressions: ITS Impressions Head CT 03/12/22 20:45 IMPRESSION: 1. No acute intracranial pathology. Brain MRI 03/29/22 13:15 IMPRESSION: 1. No demonstrated acute intracranial abnormalities. No abnormal intracranial enhancement. 2. Mild to moderate nonspecific white matter changes most commonly seen with underlying microangiopathy. Mild generalized cerebral volume loss. Medications Medications Current Medications Acetaminophen (Acetaminophen 325 Mg Tablet) 650 mg PO Q6H PRN PRN Reason: Headache/Pain Mild Scale (1-3) Al Hydroxide/Mg Hydroxide (Magnesium Hydrox/Alum Hydrox 30 Ml Oral.Susp) 30 ml PO Q6H PRN PRN Reason: Heartburn/Nausea Hydroxyzine HCl (Hydroxyzine Hcl 25 Mg Tablet) 25 mg PO Q6H PRN PRN Reason: Anxiety Levothyroxine Sodium (Levothyroxine Sodium 200 Mcg Tablet) 200 mcg PO DAILY@0630 [facility] Last Admin: 03/30/22 06:31 Dose: 200 mcg Magnesium Hydroxide (Milk Of Magnesia 30 Ml Oral.Susp) 30 ml PO DAILY PRN PRN Reason: Constipation Risperidone (Risperidone 2 Mg Tablet) 4 mg PO BEDTIME [facility] Last Admin: 03/29/22 21:05 Dose: 4 mg Trazodone HCl (Trazodone Hcl 50 Mg Tablet) 50 mg PO BEDTIME PRN PRN Reason: Insomnia Allergies Allergies Allergy/AdvReac Type Severity Reaction Status Date / Time amoxicillin [AMOXICILLIN] Allergy Unknown VOMITING/ABD Unverified 11/19/19 19:25 PAIN Assessment & Plan Assessment & Plan (1) Cognitive and behavioral changes: Status: Acute Code(s): R41.89 - Other symptoms and signs involving cognitive functions and awareness; R46.89 - Other symptoms and signs involving appearance and behavior (2) Delusional disorder: Status: Acute Code(s): F22 - Delusional disorders (3) Hypothyroidism: Status: Acute Code(s): E03.9 - Hypothyroidism, unspecified Plan HPI: Patient is a 57-year-old male on a 12b with a history of hypothyroid disorder/thyroid coma, stroke and brain aneurysm who presents to the emergency room reportedly after his friends to come to a clinic, concern for his memory impairment, delusional thinking (about people being imposters), not taking medications and poor ADLs. Patient is a poor historian and collateral as necessary to further assess. -He has history of stroke and other comorbidities that could influence cognition. Collateral is necessary to figure out the timelines of his memory impairment and whether it has worsened. Also, will need history from Neurology to see what imaging has been done -patient does have some paranoid delusional thoughts; he is vague about them. He does look moderately disheveled however he does not appear overtly disorganized at this time -significantly elevated TSH; he does say he takes his thyroid medication daily but will need collateral -although he says he scared about his memory impairment, he denies all other psychiatric symptoms. -will consult with endocrinology regarding elevated TSH Hospital course: 03/15 Collateral helpful and reveals that he is having psychotic symptoms and is confused, possibly in the face of going off psychiatric medications; sister will try to get a hold of recent medication list; continuity writer did try to call patient's PCP Dr. Hatfield but was unable to connect (ANNETTE Signed). Hypothyroidism due to noncompliance with medication. Memory loss present since stroke 03/16 will start Risperdal 03/17 patient says tired from Risperdal in the morning so will switch to bedtime; remains with paranoid delusions; memory impairment. Very little insight Discussed case with team; discussed with nursing; reviewed vitals and WNL 03/18 no change in presentation; not open to further med changes. Patient used to be on Depakote but does not want to take it and refuses it Will need to discuss further with team. Patient seems to have memory impairment/cognitive dysfunction present since his stroke 2 years ago, Which according to collateral has not necessarily worsened. Patient also has some has paranoid delusional thinking. Seems to be a combination of both cognitive dysfunction and delusional thinking that brings him back to his house and violating restraining order. Patient is not currently under the care of a neurologist; continuity writer discussed this with him any agrees to go, however his sister says he typically has no interest in doctor's appointments or medication. Patient lives at his sister's who cares for his needs; he has no history of violence or aggression towards anyone and is without any SI or HI. 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 Although patient is not in imminent risk for harm to himself or others, he risks getting arrested in prosecuted for violating restraining order. Need to talk with patient's ; will discuss further with team. -Discussed case with nursing; reviewed vitals and WNL 03/19 patient remains with paranoid delusions and without insight; he plans to continue going back to the house since in his mind, it is his house. Disorganized behavior in that he will stand [address] for long periods of time not engaging with others. Says he feels a little tired from the Risperdal but continues to take it. He says he will likely not take it once discharged. 03/20 patient remains without insight and has paranoid delusions. Now having received collateral from his estranged Romina, it is more clear that patient's behaviors in the community are threatening. Romina is now scared of him. He has tried to break into his 1/estranged 's house, has violated and no trespass order multiple times and has been subsequently arrested; the week prior to this admission, a Restraining order was enacted following a text patient sent to Romina which said she is not going to make it out alive. Patient than violated this restraining order. Patient has very little to no insight regarding his behaviors. Patient intends to continue going back to the house since he thinks it is his house and has paranoid, delusional concerns about his . Patient says he will not take medication once he leaves. At this time, patient is not safe for discharge. 03/21 no change; neuro consult pending Lewis 03/22 refused MRI since paranoid 03/26 no change in presentation 03/28 some improvement; for the first time he clearly articulates knowledge of the restraining order, the rules he must obey and the consequence of violating it. He says he will abide by it and that he has no choice. Pt thinks maybe his will let him come back to the house, but is open to the idea that he may be wrong. -consents to MRI he says he'll have to abide by the restraining order. Director Of Collections inquires further, asking if pt will desist from going to the house. Pt corrects continuity writer and says he's mandated to stay 50 feet away, which is written right on the order which I have in my jacket pocket. He says he will abide it and i have to...i have no choice...I don't want to go to detention. Of note, this is first time patient has clearly stated that he will abide by the restraining order and himself articulated that rules regarding restraining order. Hopefully this guido increased insight possibly due to Risperdal which would be encouraging if there is a treatment that can help patient be more safe in the community. 03/29 went for MRI 03/30 perhaps a little less confused, but difficult to tell. still w/ paranoid, delusional thinking. Agreed to Invega IM but then refused FORMULATION/IMPRESSION: Patient is a 57-year-old male with no psychiatric history prior to 2020. 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 Over the past 6-8 months, patient's memory and cognitive function has significantly worsened; patient has developed paranoid delusions and is without insight. Due to a combination of paranoid delusional thinking and cognitive impairment, Patient has been increasingly harassing his estranged . The harassment has worsened and over the past few weeks and patient's estranged is now afraid: he has tried to break into her house, violated a no trespass order, sent a cryptic, threatening text message and has violated a restraining order. Patient does not seem to have any insight that his behaviors are harassing or frightening or that he is operating from paranoid delusions. It seems likely there is some relationship between between patient's paranoid delusions, his cognitive decline and history of either aneurysm/stroke/coma, given the clear timeline. Patient needs further workup with help from Neurology to better assess. At this time patient remains unsafe to be in the community and requires inpatient level of care for treatment and containment for safety and medication management. Plan CV Q 15 minute checks 1. Psychotic symptoms/delusions 2/2 to medical illness (aneurysm/stroke...) vs organic etiology Ordered INVEGA Sustenna 234mg IM; orderded on 03/30 (agreed then refused) Increase to Risperdal 4 mg q.h.s. Neurology consult MRI ordered but pt refused to consent Lewis Concern that patient may need a guardian -Records pending: need more detailed history of aneurysm/stroke/coma as reports are all from non clinicians and without pertinent details -some history of prescribed psychotropic medications: mirtazapine 15 mg, Depakote ER 750 mg -symptoms seem to be worsening over the past 5 months (it now seems less likely that patient was adherent with medications) 2. Cognitive disorder s/p stroke, brain aneurysm, myxedema coma? All in 2020: Reportedly present since stroke in 2020 -neurology consult -MRI ordered; consent signed 3. Hypothyroid: Continue levothyroxine 200mcg daily at 06:30 discussed with sr technical sales consultant Dr. 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 He says he does not want and it is to be discontinued. He denies any history of actually having a seizure but says this was started s/p thyroid coma as a prophylactic measure to prevent seizure Director Of Collections talked with Romina, patient's estranged (ANNETTE signed): Romina reports that up until around 2020 when he had his coma and mini strokes, patient was is regular self without any overt psychiatric symptoms; only on continuity writer's further inquiry did she say there was maybe some intermittent, minimal/mild paranoia. 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 She says afterwards he had some rehab and some memory impairment but nowhere near as significant as it is now. She says over the next 6 months his memory problems worsened. At some point they and he went to live with his sister. She says that for the past 8 months his memory has continued to deteriorate. For the past year he has been calling her around 50 or 60 times a day and would send constant text messages all day long. Would frequently show up at her house (she reports the house is fully hers, in her name). She continues to care about him and hope that he would eventually stop coming over as she continually explained that their relationship was over. Once, she let him into the house to see his nephew but then he would not leave an she said it took enormous effort to get him out the door. Since then she has not let him in the house. Despite this, he kept coming over to the house daily, knocking for hours at a time. She knew patient was struggling and did not want him to add to his troubles and so hesitated to call the police. However patient continued to come over and then actually started trying to get into the house, once using a credit card. He would call her daughter and say he standing outside the house. Patient would also stand for hours and front of the house. Romina started to get scared. He tried to get into the house about 3 weeks ago, she call the police who issued a no trespassing order. He violated the order, was arrested and taken to [facility] for rehab medicine detention for couple days; immediately on release he would back to the house and got arrested again. Released again, he went over to the house and stood outside of it. Last week, just before this admission, send a text message to Romina that said she is not going to make it out alive. After this the petroleum geology faculty member put a restraining order on patient. 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 Romina says this is what resulted in this admission. She says he accuses her of being an imposter on the phone; after interacting with the police he'll say they are not real boat diesel motor mechanic, they are scammers... She reiterates that he is getting scary and that she is now scared of him. She is relieved to know that is in the hospital in hopes he can get help. Regarding history of psychiatric admissions, Romina says that patient was admitted to a psychiatric hospital at least 2 times following suicide attempts, which also occurred soon after his aneurysm/stroke/coma. She says the the 1st attempt (not necessarily resulting in admission) was an intentional overdose from a bottle of pills. Second attempt was attempt to hang himself. Third attempt patient tried to cut his neck with a circular saw. Patient was admitted; required stitches only Of note, 's reporting corroborates with both patient's sister and with patient's own account Patient educated on: diagnosis, medication risk/benefits and medical condition Informed Consent: understands, does not understand and further education needed Reason for contiued inpatient stay Substantial Risk for: inability to function and med/psych decompensation Time Spent With Patient Time: Total time managing care of this patient today ____ minutes.
[2022-03-30 20:37] VITALS: BP 126/71; PULSE 81; TEMP 36.8
[2022-03-30] MEDS: risperiDONE 2 MG TABLET 4 MG PO (20:39)
[2022-03-31] MEDS: Levothyroxine Sodium 200 MCG TABLET PO (07:51)
[2022-03-31 07:56] VITALS: BP 133/77; PULSE 100; RESP 18; TEMP 36.4; O2SAT 96
--- NOTE | 2022-03-31 12:20 | P.PNPSI_ITS ---
Subjective Subjective Date of Service: 03/31/22 Reason For Visit: capgrass delusions Interim History: met w/patient; discussed with RN Patient reports he is feeling well today not too bad...fairly decent He says it's the best he felt in a while. He reports he slept well. He continues to be ambivalent about taking the Invega or checking his TSH. No SI. Review of Systems Review of Systems No history of seizure-like episode or head trauma. He denied alcohol or drug use and his also stated that he did not drink alcohol at least since 2006 when she became associated with him. Yes Unobtainable due to mental status Mental Status Exam Mental Status Exam Narrative: Pt is alert and oriented; behavior is cooperative, friendly enough on approach and calm, but also disorganized, often standing in one place in hallway for extended periods of time; patient is not in distress; dressed in casual attire, clean cloths, adequate hygiene; mood is described as ok affect blunted; eye contact appropriate; Speech is normal rate, volume and prosody and not pressured; some psychomotor retardation present; thought process is goal directed but concrete; Thought content is on paranoid delusions; some anxiety over memory impairment; he is able to be pertinent to relevant topics when asked; denies any SI/HI. Does not seem internally preoccupied; and he denies AVH. Memory impairment significant Patients insight and judgment impaired. Patient Appearance: Appropriate Patient Orientation: Person and Place Level of Consciousness: Alert Patient Behavior: Talkative and Good Eye Contact Mood Description: Apprehensive Affect Description: Apprehensive Patient Cognition Impaired: No Ability to Follow Directions: Good Speech Pattern: Spontaneous Speech 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: Episodic Impaired Diagnostics Vital Signs (24Hr): Vital Signs - 24 hr 03/31/22 07:56 03/31/22 18:00 Temperature 97.5 F 98 F Pulse Rate 100 92 Respiratory Rate 18 16 Blood Pressure 133/77 107/59 L Pulse Oximetry 96 98 Oxygen Delivery Method Room Air Room Air BMI result Body Mass Index 26.2 Labs 03/12/22 21:36 03/14/22 08:37 Imaging Radiology Impressions: ITS Impressions Head CT 03/12/22 20:45 IMPRESSION: 1. No acute intracranial pathology. Brain MRI 03/29/22 13:15 IMPRESSION: 1. No demonstrated acute intracranial abnormalities. No abnormal intracranial enhancement. 2. Mild to moderate nonspecific white matter changes most commonly seen with underlying microangiopathy. Mild generalized cerebral volume loss. Medications Medications Current Medications Acetaminophen (Acetaminophen 325 Mg Tablet) 650 mg PO Q6H PRN PRN Reason: Headache/Pain Mild Scale (1-3) Al Hydroxide/Mg Hydroxide (Magnesium Hydrox/Alum Hydrox 30 Ml Oral.Susp) 30 ml PO Q6H PRN PRN Reason: Heartburn/Nausea Hydroxyzine HCl (Hydroxyzine Hcl 25 Mg Tablet) 25 mg PO Q6H PRN PRN Reason: Anxiety Levothyroxine Sodium (Levothyroxine Sodium 200 Mcg Tablet) 200 mcg PO DAILY@0630 [facility] Last Admin: 03/31/22 07:51 Dose: 200 mcg Magnesium Hydroxide (Milk Of Magnesia 30 Ml Oral.Susp) 30 ml PO DAILY PRN PRN Reason: Constipation Risperidone (Risperidone 2 Mg Tablet) 4 mg PO BEDTIME [facility] Last Admin: 03/31/22 19:42 Dose: 4 mg Trazodone HCl (Trazodone Hcl 50 Mg Tablet) 50 mg PO BEDTIME PRN PRN Reason: Insomnia Allergies Allergies Allergy/AdvReac Type Severity Reaction Status Date / Time amoxicillin [AMOXICILLIN] Allergy Unknown VOMITING/ABD Unverified 11/19/19 19:25 PAIN Assessment & Plan Assessment & Plan (1) Cognitive and behavioral changes: Status: Acute Code(s): R41.89 - Other symptoms and signs involving cognitive functions and awareness; R46.89 - Other symptoms and signs involving appearance and behavior (2) Delusional disorder: Status: Acute Code(s): F22 - Delusional disorders (3) Hypothyroidism: Status: Acute Code(s): E03.9 - Hypothyroidism, unspecified Plan HPI: Patient is a 57-year-old male on a 12b with a history of hypothyroid disorder/thyroid coma, stroke and brain aneurysm who presents to the emergency room reportedly after his friends to come to a clinic, concern for his memory impairment, delusional thinking (about people being imposters), not taking medications and poor ADLs. Patient is a poor historian and collateral as necessary to further assess. -He has history of stroke and other comorbidities that could influence cognition. Collateral is necessary to figure out the timelines of his memory impairment and whether it has worsened. Also, will need history from Neurology to see what imaging has been done -patient does have some paranoid delusional thoughts; he is vague about them. He does look moderately disheveled however he does not appear overtly d isorganized at this time -significantly elevated TSH; he does say he takes his thyroid medication daily but will need collateral -although he says he scared about his memory impairment, he denies all other psychiatric symptoms. -will consult with endocrinology regarding elevated TSH Hospital course: 03/15 Collateral helpful and reveals that he is having psychotic symptoms and is confused, possibly in the face of going off psychiatric medications; sister will try to get a hold of recent medication list; song writer did try to call patient's PCP Dr. Hatfield but was unable to connect (ANNETTE Signed). Hypothyroidism due to noncompliance with medication. Memory loss present since stroke 03/16 will start Risperdal 03/17 patient says tired from Risperdal in the morning so will switch to bedtime; remains with paranoid delusions; memory impairment. Very little insight Discussed case with team; discussed with nursing; reviewed vitals and WNL 03/18 no change in presentation; not open to further med changes. Patient used to be on Depakote but does not want to take it and refuses it Will need to discuss further with team. Patient seems to have memory impairment/cognitive dysfunction present since his stroke 2 years ago, Which according to collateral has not necessarily worsened. Patient also has some has paranoid delusional thinking. Seems to be a combination of both cognitive dysfunction and delusional thinking that brings him back to his house and violating restraining order. Patient is not currently under the care of a neurologist; song writer discussed this with him any agrees to go, however his sister says he typically has no interest in doctor's appointments or medication. Patient lives at his sister's who cares for his needs; he has no history of violence or aggression towards anyone and is without any SI or HI. 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 Although patient is not in imminent risk for harm to himself or others, he risks getting arrested in prosecuted for violating restraining order. Need to talk with patient's ; will discuss further with team. -Discussed case with nursing; reviewed vitals and WNL 03/19 patient remains with paranoid delusions and without insight; he plans to continue going back to the house since in his mind, it is his house. Disorganized behavior in that he will stand [address] for long periods of time not engaging with others. Says he feels a little tired from the Risperdal but continues to take it. He says he will likely not take it once discharged. 03/20 patient remains without insight and has paranoid delusions. Now having received collateral from his estranged Romina, it is more clear that patient's behaviors in the community are threatening. Romina is now scared of him. He has tried to break into his 1/estranged 's house, has violated and no trespass order multiple times and has been subsequently arrested; the week prior to this admission, a Restraining order was enacted following a text patient sent to Romina which said she is not going to make it out alive. Patient than violated this restraining order. Patient has very little to no insight regarding his behaviors. Patient intends to continue going back to the house since he thinks it is his house and has paranoid, delusional concerns about his . Patient says he will not take medication once he leaves. At this time, patient is not safe for discharge. 03/21 no change; neuro consult pending [place] 03/22 refused MRI since paranoid 03/26 no change in presentation 03/28 some improvement; for the first time he clearly articulates knowledge of the restraining order, the rules he must obey and the consequence of violating it. He says he will abide by it and that he has no choice. Pt thinks maybe his will let him come back to the house, but is open to the idea that he may be wrong. -consents to MRI he says he'll have to abide by the restraining order. Communications And Signals Supervisor inquires further, asking if pt will desist from going to the house. Pt corrects song writer and says h e's mandated to stay 50 feet away, which is written right on the order which I have in my jacket pocket. He says he will abide it and i have to...i have no choice...I don't want to go to assisted. Of note, this is first time patient has clearly stated that he will abide by the restraining order and himself articulated that rules regarding restraining order. Hopefully this guido increased insight possibly due to Risperdal which would be encouraging if there is a treatment that can help patient be more safe in the community. 03/29 went for MRI 03/30 perhaps a little less confused, but difficult to tell. still w/ paranoid, delusional thinking. Agreed to Invega IM but then refused 03/31: continue current tx plan. Attempt to encourage him to take invega sustenna and check TSH/T4 FORMULATION/IMPRESSION: Patient is a 57-year-old male with no psychiatric history prior to 2020. 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 Over the past 6-8 months, patient's memory and cognitive function has significantly worsened; patient has developed paranoid delusions and is without insight. Due to a combination of paranoid delusional thinking and cognitive impairment, Patient has been increasingly harassing his estranged . The harassment has worsened and over the past few weeks and patient's estranged is now afraid: he has tried to break into her house, violated a no trespass order, sent a cryptic, threatening text message and has violated a restraining order. Patient does not seem to have any insight that his behaviors are harassing or frightening or that he is operating from paranoid delusions. It seems likely there is some relationship between between patient's paranoid delusions, his cognitive decline and history of either aneurysm/stroke/coma, given the clear timeline. Patient needs further workup with help from Neurology to better assess. At this time patient remains unsafe to be in the community and requires inpatient level of care for treatment and containment for safety and medication management. Plan CV Q 15 minute checks 1. Psychotic symptoms/delusions 2/2 to medical illness (aneurysm/stroke...) vs organic etiology Ordered INVEGA Sustenna 234mg IM; orderded on 03/30 (agreed then refused) Increase to Risperdal 4 mg q.h.s. Neurology consult MRI ordered but pt refused to consent [place] Concern that patient may need a guardian -Records pending: need more detailed history of aneurysm/stroke/coma as reports are all from non clinicians and without pertinent details -some history of prescribed psychotropic medications: mirtazapine 15 mg, Depakote ER 750 mg -symptoms seem to be worsening over the past 5 months (it now seems less likely that patient was adherent with medications) 2. Cognitive disorder s/p stroke, brain aneurysm, myxedema coma? All in 2020: Reportedly present since stroke in 2020 -neurology consult -MRI ordered; consent signed 3. Hypothyroid: Continue levothyroxine 200mcg daily at 06:30 discussed with melter supervisor open hearth furnace Dr. 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 He says he does not want and it is to be discontinued. He denies any history of actually having a seizure but says this was started s/p thyroid coma as a prophylactic measure to prevent seizure Communications And Signals Supervisor talked with Romina, patient's estranged (ANNETTE signed): Romina reports that up until around 2020 when he had his coma and mini strokes, patient was is regular self without any overt psychiatric symptoms; only on song writer's further inquiry did she say there was maybe some intermittent, minimal/mild paranoia. 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 She says afterwards he had some rehab and some memory impairment but nowhere near as significant as it is now. She says over the next 6 months his memory problems worsened. At some point they and he went to live with his sister. She says that for the past 8 months his memory has continued to deteriorate. For the past year he has been calling her around 50 or 60 times a day and would send constant text messages all day long. Would frequently show up at her house (she reports the house is fully hers, in her name). She continues to care about him and hope that he would eventually stop coming over as she continually explained that their relationship was over. Once, she let him into the house to see his nephew but then he would not leave an she said it took enormous effort to get him out the door. Since then she has not let him in the house. Despite this, he kept coming over to the house daily, knocking for hours at a time. She knew patient was struggling and did not want him to add to his troubles and so hesitated to call the police. However patient continued to come over and then actually started trying to get into the house, once using a credit card. He would call her daughter and say he standing outside the house. Patient would also stand for hours and front of the house. Romina started to get scared. He tried to get into the house about 3 weeks ago, she call the police who issued a no trespassing order. He violated the order, was arrested and taken to [facility] for couple days; immediately on release he would back to the house and got arrested again. Released again, he went over to the house and stood outside of it. Last week, just before this admission, send a text message to Romina that said she is not going to make it out alive. After this the principal developer put a restraining order on patient. 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 Romina says this is what resulted in this admission. She says he accuses her of being an imposter on the phone; after interacting with the police he'll say they are not real business systems developer, they are scammers... She r eiterates that he is getting scary and that she is now scared of him. She is relieved to know that is in the hospital in hopes he can get help. Regarding history of psychiatric admissions, Romina says that patient was admitted to a psychiatric hospital at least 2 times following suicide attempts, which also occurred soon after his aneurysm/stroke/coma. She says the the 1st attempt (not necessarily resulting in admission) was an intentional overdose from a bottle of pills. Second attempt was attempt to hang himself. Third attempt patient tried to cut his neck with a circular saw. Patient was admitted; required stitches only Of note, 's reporting corroborates with both patient's sister and with patient's own account Reason for contiued inpatient stay Substantial Risk for: inability to function, rapid decompensation and med/psych decompensation Time Spent With Patient Time: Total time managing care of this patient today ____ minutes.
[2022-03-31 18:00] VITALS: BP 107/59; PULSE 92; RESP 16; TEMP 36.6; O2SAT 98
[2022-03-31] MEDS: risperiDONE 2 MG TABLET 4 MG PO (19:42)
[2022-04-01 08:11] VITALS: BP 117/68; PULSE 100; RESP 16; TEMP 37.4; O2SAT 97
[2022-04-01] MEDS: Levothyroxine Sodium 200 MCG TABLET PO (08:41)
--- NOTE | 2022-04-01 15:25 | P.PNPSI_ITS ---
Subjective Subjective Date of Service: 04/01/22 Reason For Visit: capgrass delusions Interim History: met w/patient; discussed with RN Patient reports he is feeling well today pretty good He reports no side effects with medications. Informed him of the need for thyroid studies but he wa s non-committal. He reports good sleep. Not interested in Invega Sustenna because They're going to stick a needle in me again? He was fully alert but had difficulty with fund of knoledge. He said he likes football. When asked he didn't know the teams playing today ([facility] and [facility] championships). He reports he slept well. No SI. Review of Systems Review of Systems No history of seizure-like episode or head trauma. He denied alcohol or drug use and his also stated that he did not drink alcohol at least since 2006 when she became associated with him. Yes Unobtainable due to mental status Mental Status Exam Mental Status Exam Narrative: Pt is alert and oriented; behavior is cooperative, friendly enough on approach and calm, but also disorganized, often standing in one place in hallway for extended periods of time; patient is not in distress; dressed in casual attire, clean cloths, adequate hygiene; mood is described as ok affect blunted; eye contact appropriate; Speech is normal rate, volume and prosody and not pressured; some psychomotor retardation present; thought process is goal di rected but concrete; Thought content is on paranoid delusions; some anxiety over memory impairment; he is able to be pertinent to relevant topics when asked; denies any SI/HI. Does not seem internally preoccupied; and he denies AVH. Memory impairment significant Patients insight and judgment impaired. Patient Appearance: Appropriate Patient Orientation: Person and Place Level of Consciousness: Alert Patient Behavior: Talkative and Good Eye Contact Mood Description: Apprehensive Affect Description: Apprehensive Patient Cognition Impaired: No Ability to Follow Directions: Good Speech Pattern: Spontaneous Speech 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: Episodic Impaired Diagnostics Vital Signs (24Hr): Vital Signs - 24 hr 04/01/22 08:11 04/01/22 18:00 Temperature 99.3 F 97.6 F Pulse Rate 100 94 Respiratory Rate 16 Blood Pressure 117/68 109/64 Pulse Oximetry 97 97 Oxygen Delivery Method Room Air Room Air BMI result Body Mass Index 26.2 Labs 03/12/22 21:36 03/14/22 08:37 Imaging Radiology Impressions: ITS Impressions Head CT 03/12/22 20:45 IMPRESSION: 1. No acute intracranial pathology. Brain MRI 03/29/22 13:15 IMPRESSION: 1. No demonstrated acute intracranial abnormalities. No abnormal intracranial enhancement. 2. Mild to moderate nonspecific white matter changes most commonly seen with underlying microangiopathy. Mild generalized cerebral volume loss. Medications Medications Current Medications Acetaminophen (Acetaminophen 325 Mg Tablet) 650 mg PO Q6H PRN PRN Reason: Headache/Pain Mild Scale (1-3) Al Hydroxide/Mg Hydroxide (Magnesium Hydrox/Alum Hydrox 30 Ml Oral.Susp) 30 ml PO Q6H PRN PRN Reason: Heartburn/Nausea Hydroxyzine HCl (Hydroxyzine Hcl 25 Mg Tablet) 25 mg PO Q6H PRN PRN Reason: Anxiety Levothyroxine Sodium (Levothyroxine Sodium 200 Mcg Tablet) 200 mcg PO DAILY@0630 [facility] Last Admin: 04/01/22 08:41 Dose: 200 mcg Magnesium Hydroxide (Milk Of Magnesia 30 Ml Oral.Susp) 30 ml PO DAILY PRN PRN Reason: Constipation Risperidone (Risperidone 2 Mg Tablet) 4 mg PO BEDTIME [facility] Last Admin: 04/01/22 21:37 Dose: 4 mg Trazodone HCl (Trazodone Hcl 50 Mg Tablet) 50 mg PO BEDTIME PRN PRN Reason: Insomnia Allergies Allergies Allergy/AdvReac Type Severity Reaction Status Date / Time amoxicillin [AMOXICILLIN] Allergy Unknown VOMITING/ABD Unverified 11/19/19 19:25 PAIN Assessment & Plan Assessment & Plan (1) Cognitive and behavioral changes: Status: Acute Code(s): R41.89 - Other symptoms and signs involving cognitive functions and awareness; R46.89 - Other symptoms and signs involving appearance and behavior (2) Delusional disorder: Status: Acute Code(s): F22 - Delusional disorders (3) Hypothyroidism: Status: Acute Code(s): E03.9 - Hypothyroidism, unspecified Plan HPI: Patient is a 57-year-old male on a 12b with a history of hypothyroid disorder/thyroid coma, stroke and brain aneurysm who presents to the emergency room reportedly after his friends to come to a clinic, concern for his memory impairment, delusional thinking (about people being imposters), not taking medications and poor ADLs. Patient is a poor historian and collateral as necessary to further assess. -He has history of stroke and other comorbidities that could influence cognition. Collateral is necessary to figure out the timelines of his memory im pairment and whether it has worsened. Also, will need history from Neurology to see what imaging has been done -patient does have some paranoid delusional thoughts; he is vague about them. He does look moderately disheveled however he does not appear overtly disorganized at this time -significantly elevated TSH; he does say he takes his thyroid medication daily but will need collateral -although he says he scared about his memory impairment, he denies all other psychiatric symptoms. -will consult with endocrinology regarding elevated TSH Hospital course: 03/15 Collateral helpful and reveals that he is having psychotic symptoms and is confused, possibly in the face of going off psychiatric medications; sister will try to get a hold of recent medication list; signwriter did try to call patient's PCP Dr. Hatfield but was unable to connect (ANNETTE Signed). Hypothyroidism due to noncompliance with medication. Memory loss present since stroke 03/16 will start Risperdal 03/17 patient says tired from Risperdal in the morning so will switch to bedtime; remains with paranoid delusions; memory impairment. Very little insight Discussed case with team; discussed with nursing; reviewed vitals and WNL 03/18 no change in presentation; not open to further med changes. Patient used to be on Depakote but does not want to take it and refuses it Will need to discuss further with team. Patient seems to have memory impairment/cognitive dysfunction present since his stroke 2 years ago, Which according to collateral has not necessarily worsened. Patient also has some has paranoid delusional thinking. Seems to be a combination of both cognitive dysfunction and delusional thinking that brings him back to his house and violating restraining order. Patient is not currently under the care of a neurologist; signwriter discussed this with him any agrees to go, however his sister says he typically has no interest in doctor's appointments or medication. Patient lives at his sister's who cares for his needs; he has no history of violence or aggression towards anyone and is without any SI or HI. 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 Although patient is not in imminent risk for harm to himself or others, he risks getting arrested in prosecuted for violating restraining order. Need to talk with patient's ; will discuss further with team. -Discussed case with nursing; reviewed vitals and WNL 03/19 patient remains with paranoid delusions and without insight; he plans to continue going back to the house since in his mind, it is his house. Disorganized behavior in that he will stand [address] for long periods of time not engaging with others. Says he feels a little tired from the Risperdal but continues to take it. He says he will likely not take it once discharged. 03/20 patient remains without insight and has paranoid delusions. Now having received collateral from his estranged Romina, it is more clear that patient's behaviors in the community are threatening. Romina is now scared of him. He has tried to break into his 1/estranged 's house, has violated and no trespass order multiple times and has been subsequently arrested; the week prior to this admission, a Restraining order was enacted following a text patient sent to Romina which said she is not going to make it out alive. Patient than violated this restraining order. Patient has very little to no insight regarding his behaviors. Patient intends to continue going back to the house since he thinks it is his house and has paranoid, delusional concerns about his . Patient says he will not take medication once he leaves. At this time, patient is not safe for discharge. 03/21 no change; neuro consult pending [facility] 03/22 refused MRI since paranoid 03/26 no change in presentation 03/28 some improvement; for the first time he clearly articulates knowledge of the restraining order, the rules he must obey and the consequence of violating it. He says he will abide by it and that he has no choice. Pt thinks maybe his will let him come back to the house, but is open to the idea that he may be wrong. -consents to MRI he says he'll have to abide by the restraining order. Loading Machine Adjuster inquires further, asking if pt will desist from going to the house. Pt corrects signwriter and says he's mandated to stay 50 feet away, which is written right on the order which I have in my jacket pocket. He says he will abide it and i have to...i have no choice...I don't want to go to [facility]. Of note, this is first time patient has clearly stated that he will abide by the restraining order and himself articulated that rules regarding restraining order. Hopefully this guido increased insight possibly due to Risperdal which would be encouraging if there is a treatment that can help patient be more safe in the community. 03/29 went for MRI 03/30 perhaps a little less confused, but difficult to tell. still w/ paranoid, delusional thinking. Agreed to Invega IM but then refused 03/31: continue current tx plan. Attempt to encourage him to take invega sustenna and check TSH/T4 04/01: Continue tx plan. Check thyroid studies. FORMULATION/IMPRESSION: Patient is a 57-year-old male with no psychiatric history prior to 2020. 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 Over the past 6-8 months, patient's memory and cognitive function has significantly worsened; patient has developed paranoid delusions and is without insight. Due to a combination of paranoid delusional thinking and cognitive impairment, Patient has been increasingly harassing his estranged . The harassment has worsened and over the past few weeks and patient's estranged is now afraid: he has tried to break into her house, violated a no trespass order, sent a cryptic, threatening text message and has violated a restraining order. Patient does not seem to have any insight that his behaviors are harassing or frightening or that he is operating from paranoid delusions. It seems likely there is some relationship between between patient's paranoid delusions, his cognitive decline and history of either aneurysm/stroke/coma, given the clear timeline. Patient needs further workup with help from Neurology to better assess. At this time patient remains unsafe to be in the community and requires inpatient level of care for treatment and containment for safety and medication management. Plan CV Q 15 minute checks 1. Psychotic symptoms/delusions 2/2 to medical illness (aneurysm/stroke...) vs organic etiology Ordered INVEGA Sustenna 234mg IM; orderded on 03/30 (agreed then refused) Increase to Risperdal 4 mg q.h.s. Neurology consult MRI ordered but pt refused to consent [facility] Concern that patient may need a guardian -Records pending: need more detailed history of aneurysm/stroke/coma as reports are all from non clinicians and without pertinent details -some history of prescribed psychotropic medications: mirtazapine 15 mg, Depakote ER 750 mg -symptoms seem to be worsening over the past 5 months (it now seems less likely that patient was adherent with medications) 2. Cognitive disorder s/p stroke, brain aneurysm, myxedema coma? All in 2020: Reportedly present since stroke in 2020 -neurology consult -MRI ordered; consent signed 3. Hypothyroid: Continue levothyroxine 200mcg daily at 06:30 [address] with malted milk supervisor Dr. 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 He says he does not want and it is to be discontinued. He denies any history of actually having a seiz ure but says this was started s/p thyroid coma as a prophylactic measure to prevent seizure Loading Machine Adjuster talked with Romina, patient's estranged (ANNETTE signed): Romina reports that up until around 2020 when he had his coma and mini strokes, patient was is regular self without any overt psychiatric symptoms; only on signwriter's further inquiry did she say there was maybe some intermittent, minimal/mild paranoia. 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 She says afterwards he had some rehab and some memory impairment but nowhere near as significant as it is now. She says over the next 6 months his memory problems worsened. At some point they and he went to live with his sister. She says that for the past 8 months his memory has continued to deteriorate. For the past year he has been calling her around 50 or 60 times a day and would send constant text messages all day long. Would frequently show up at her house (she reports the house is fully hers, in her name). She continues to care about him and hope that he would eventually stop coming over as she continually explained that their relationship was over. Once, she let him into the house to see his nephew but then he would not leave an she said it took enormous effort to get him out the door. Since then she has not let him in the house. Despite this, he kept coming over to the house daily, knocking for hours at a time. She knew patient was struggling and did not want him to add to his troubles and so hesitated to call the police. However patient continued to come over and then actually started trying to get into the house, once using a credit card. He would call her daughter and say he standing outside the house. Patient would also stand for hours and front of the house. Romina started to get scared. He tried to get into the house about 3 weeks ago, she call the police who issued a no trespassing order. He violated the order, was arrested and taken to [facility] for couple days; immediately on release he would back to the house and got arrested again. Released again, he went over to the house and stood outside of it. Last week, just before this admission, send a text message to Romina that said she is not going to make it out alive. After this the resource technician put a restraining order on patient. He continued to violated, stating outside her house for hours; he left his sister's house and stayed at a friend's house near Romina's and for hours and hours, in the rain, in the snow would inter fold roll cutter front of her house, only going to his friend's house to sleep for a few hours and then to repeat the next day. Romina says this is what resulted in this admission. She says he accuses her of being an imposter on the phone; after interacting with the police he'll say they are not real station cook, they are scammers... She reiterates that he is getting scary and that she is now scared of him. She is relieved to know that is in the hospital in hopes he can get help. Regarding history of psychiatric admissions, Romina says that patient was admitted to a psychiatric hospital at least 2 times following suicide attempts, which also occurred soon after his aneurysm/stroke/coma. She says the the 1st attempt (not necessarily resulting in admission) was an intentional overdose from a bottle of pills. Second attempt was attempt to hang himself. Third attempt patient tried to cut his neck with a circular saw. Patient was admitted; required stitches only Of note, 's reporting corroborates with both patient's sister and with patient's own account Reason for contiued inpatient stay Substantial Risk for: inability to function and rapid decompensation Time Spent With Patient Time: Total time managing care of this patient today ____ minutes.
[2022-04-01 18:00] VITALS: BP 109/64; PULSE 94; TEMP 36.4; O2SAT 97
[2022-04-01] MEDS: risperiDONE 2 MG TABLET 4 MG PO (21:37)
[2022-04-02 06:00] VITALS: BP 112/72; PULSE 77; RESP 14; TEMP 36.3; O2SAT 100
[2022-04-02] MEDS: Levothyroxine Sodium 200 MCG TABLET PO (06:48)
[2022-04-02 14:07] LABS: Free T4 (Free Thyroxine) 1.21 ng/dL (0.71-1.85); Thyroid Stimulating Hormone 5.31 uIU/mL (0.32-4.0)
--- NOTE | 2022-04-02 17:36 | HO.PSYCHPN ---
Subjective Subjective Date of Service: 04/02/22 Reason For Visit: capgrass delusions Interim History: Late en her not a no th patient, discussed in teams; made with patient and social media sr strategy manager together; discussed case with patient's Patient remains focused on being able to return back to the house with his ; he continues to say that he thinks she probably wants him to come back there. Patient is ambivalent about continuing medications but says he will take them. He refuses long-acting injectable; also refuses to make his sister healthcare proxy. Patient continues to have delusional thoughts that the people he is talking to, his sister or his are potentially imposters. He will say things it did not seem like it was her...i don't know... Patient does continue to say he will respect to the restraining order if his remains behind it but he says he talked with her today and she did not bring it up which makes him think she might be willing to take him back to the house. Health Screener talked with Romina, patient's who said unequivocally she does not want him to come back to the house ever and has told him so numerous times. She says it does not matter how many times she says so he will just ask again. She did acknowledge that she has talked with him on the phone out of sympathy and once did offer him a ride home from the hospital if he could not get another 1. Health Screener explained how this is confusing to patient, sending a mix message with a restraining order on 1 side and offering help on another. Romina said that she is very willing to halt all communication if that will help him understand that he is not allowed back at the house and there is no relationship in between them nor will there be. Mental Status Exam Mental Status Exam Narrative: Pt is alert and oriented; behavior is cooperative, friendly enough on approach and calm, but also disorganized, often standing in one place in hallway for extended periods of time; patient is not in distress; dressed in casual attire, clean cloths, adequate hygiene; mood is described as ok affect blunted; eye contact appropriate; Speech is normal rate, volume and prosody and not pressured; some psychomotor retardation present; thought process is goal directed but concrete; Thought content is on paranoid delusions; some anxiety over memory impairment; he is able to be pertinent to relevant topics when asked; denies any SI/HI. Does not seem internally preoccupied; and he denies AVH. Memory impairment significant Patients insight and judgment impaired. Diagnostics Vital Signs (24Hr): Vital Signs - 24 hr 04/02/22 17:55 04/03/22 09:55 04/03/22 16:19 Temperature 97.5 F 98 F 98.2 F Pulse Rate 86 96 92 Respiratory Rate 16 Blood Pressure 108/52 L 116/64 138/69 Pulse Oximetry 99 Oxygen Delivery Method Room Air BMI result Body Mass Index 26.2 Labs 03/12/22 21:36 03/14/22 08:37 Labs: Laboratory Results - last 48 hr 04/02/22 13:17 TSH 5.31 H Free T4 1.21 Imaging Radiology Impressions: ITS Impressions Head CT 03/12/22 20:45 IMPRESSION: 1. No acute intracranial pathology. Brain MRI 03/29/22 13:15 IMPRESSION: 1. No demonstrated acute intracranial abnormalities. No abnormal intracranial enhancement. 2. Mild to moderate nonspecific white matter changes most commonly seen with underlying microangiopathy. Mild generalized cerebral volume loss. Medications Medications Current Medications Acetaminophen (Acetaminophen 325 Mg Tablet) 650 mg PO Q6H PRN PRN Reason: Headache/Pain Mild Scale (1-3) Al Hydroxide/Mg Hydroxide (Magnesium Hydrox/Alum Hydrox 30 Ml Oral.Susp) 30 ml PO Q6H PRN PRN Reason: Heartburn/Nausea Hydroxyzine HCl (Hydroxyzine Hcl 25 Mg Tablet) 25 mg PO Q6H PRN PRN Reason: Anxiety Levothyroxine Sodium (Levothyroxine Sodium 200 Mcg Tablet) 200 mcg PO DAILY@0630 [facility] Last Admin: 04/03/22 06:08 Dose: 200 mcg Magnesium Hydroxide (Milk Of Magnesia 30 Ml Oral.Susp) 30 ml PO DAILY PRN PRN Reason: Constipation Risperidone (Risperidone 1 Mg Tablet) 5 mg PO BEDTIME [facility] Last Admin: 04/02/22 20:59 Dose: 5 mg Trazodone HCl (Trazodone Hcl 50 Mg Tablet) 50 mg PO BEDTIME PRN PRN Reason: Insomnia Allergies Allergies Allergy/AdvReac Type Severity Reaction Status Date / Time amoxicillin [AMOXICILLIN] Allergy Unknown VOMITING/ABD Unverified 11/19/19 19:25 PAIN Assessment & Plan Assessment & Plan (1) Cognitive and behavioral changes: Status: Acute Code(s): R41.89 - Other symptoms and signs involving cognitive functions and awareness; R46.89 - Other symptoms and signs involving appearance and behavior (2) Delusional disorder: Status: Acute Code(s): F22 - Delusional disorders (3) Hypothyroidism: Status: Acute Code(s): E03.9 - Hypothyroidism, unspecified Plan HPI: Patient is a 57-year-old male on a 12b with a history of hypothyroid disorder/thyroid coma, stroke and brain aneurysm who presents to the emergency room reportedly after his friends to come to a clinic, concern for his memory impairment, delusional thinking (about people being imposters), not taking medications and poor ADLs. Patient is a poor historian and collateral as necessary to further assess. -He has history of stroke and other comorbidities that could influence cognition. Collateral is necessary to figure out the timelines of his memory impairment and whether it has worsened. Also, will need history from Neurology to see what imaging has been done -patient does have some paranoid delusional thoughts; he is vague about them. He does look moderately disheveled however he does not appear overtly disorganized at this time -significantly elevated TSH; he does say he takes his thyroid medication daily but will need collateral -although he says he scared about his memory impairment, he denies all other psychiatric symptoms. -will consult with endocrinology regarding elevated TSH Hospital course: 03/15 Collateral helpful and reveals that he is having psychotic symptoms and is confused, possibly in the face of going off psychiatric medications; sister will try to get a hold of recent medication list; database report writer did try to call patient's PCP Dr. Hatfield but was unable to connect (ANNETTE Signed). Hypothyroidism due to noncompliance with medication. Memory loss present since stroke 03/16 will start Risperdal 03/17 patient says tired from Risperdal in the morning so will switch to bedtime; remains with paranoid delusions; memory impairment. Very little insight Discussed case with team; discussed with nursing; reviewed vitals and WNL 03/18 no change in presentation; not open to further med changes. Patient used to be on Depakote but does not want to take it and refuses it Will need to discuss further with team. Patient seems to have memory impairment/cognitive dysfunction present since his stroke 2 years ago, Which according to collateral has not necessarily worsened. Patient also has some has paranoid delusional thinking. Seems to be a combination of both cognitive dysfunction and delusional thinking that brings him back to his house and violating restraining order. Patient is not currently under the care of a neurologist; database report writer discussed this with him any agrees to go, however his sister says he typically has no interest in doctor's appointments or medication. Patient lives at his sister's who cares for his needs; he has no history of violence or aggression towards anyone and is without any SI or HI. 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 Although patient is not in imminent risk for harm to himself or others, he risks getting arrested in prosecuted for violating restraining order. Need to talk with patient's ; will discuss further with team. -Discussed case with nursing; reviewed vitals and WNL 03/19 patient remains with paranoid delusions and without insight; he plans to continue going back to the house since in his mind, it is his house. Disorganized behavior in that he will stand [address] for long periods of time not engaging with others. Says he feels a little tired from the Risperdal but continues to take it. He says he will likely not take it once discharged. 03/20 patient remains without insight and has paranoid delusions. Now having received collateral from his estranged Romnia, it is more clear that patient's behaviors in the community are threatening. Romina is now scared of him. He has tried to break into his 1/estranged 's house, has violated and no trespass order multiple times and has been subsequently arrested; the week prior to this admission, a Restraining order was enacted following a text patient sent to Romina which said she is not going to make it out alive. Patient than violated this restraining order. Patient has very little to no insight regarding his behaviors. Patient intends to continue going back to the house since he thinks it is his house and has paranoid, delusional concerns about his . Patient says he will not take medication once he leaves. At this time, patient is not safe for discharge. 03/21 no change; neuro consult pending [place] 03/22 refused MRI since paranoid 03/26 no change in presentation 03/28 some improvement; for the first time he clearly articulates knowledge of the restraining order, the rules he must obey and the consequence of violating it. He says he will abide by it and that he has no choice. Pt thinks maybe his will let him come back to the house, but is open to the idea that he may be wrong. -consents to MRI he says he'll have to abide by the restraining order. Health Screener inquires further, asking if pt will desist from going to the house. Pt corrects database report writer and says he's mandated to stay 50 feet away, which is written right on the order which I have in my jacket pocket. He says he will abide it and i have to...i have no choice...I don't want to go to shelter. Of note, this is first time patient has clearly stated that he will abide by the restraining order and himself articulated that rules regarding restraining order. Hopefully this guido increased insight possibly due to Risperdal which would be encouraging if there is a treatment that can help patient be more safe in the community. 03/29 went for MRI 03/30 perhaps a little less confused, but difficult to tell. still w/ paranoid, delusional thinking. Agreed to Invega IM but then refused 03/31: continue current tx plan. Attempt to encourage him to take invega sustenna and check TSH/T4 04/01: Continue tx plan. Check thyroid studies. 04/02 no change; continues to say he will respect the restraining order. Will order repeat TSH FORMULATION/IMPRESSION: Patient is a 57-year-old male with no psychiatric history prior to 2020. 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 Over the past 6-8 months, patient's memory and cognitive function has significantly worsened; patient has developed paranoid delusions and is without insight. Due to a combination of paranoid delusional thinking and cognitive impairment, Patient has been increasingly harassing his estranged . The harassment has worsened and over the past few weeks and patient's estranged is now afraid: he has tried to break into her house, violated a no trespass order, sent a cryptic, threatening text message and has violated a restraining order. Patient does not seem to have any insight that his behaviors are harassing or frightening or that he is operating from paranoid delusions. It seems likely there is some relationship between between patient's paranoid delusions, his cognitive decline and history of either aneurysm/stroke/coma, given the clear timeline. Patient needs further workup with help from Neurology to better assess. At this time patient remains unsafe to be in the community and requires inpatient level of care for treatment and containment for safety and medication management. Plan CV Q 15 minute checks 1. Psychotic symptoms/delusions 2/2 to medical illness (aneurysm/stroke...) vs organic etiology Ordered INVEGA Sustenna 234mg IM; orderded on 03/30 (agreed then refused) Increase to Risperdal 4 mg q.h.s. Neurology consult MRI ordered but pt refused to consent [place] Concern that patient may need a guardian -Records pending: need more detailed history of aneurysm/stroke/coma as reports are all from non clinicians and without pertinent details -some history of prescribed psychotropic medications: mirtazapine 15 mg, Depakote ER 750 mg -symptoms seem to be worsening over the past 5 months (it now seems less likely that patient was adherent with medications) 2. Cognitive disorder s/p stroke, brain aneurysm, myxedema coma? All in 2020: Reportedly present since stroke in 2020 -neurology consult -MRI ordered; consent signed 3. Hypothyroid: Continue levothyroxine 200mcg daily at 06:[address] 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 He says he does not want and it is to be discontinued. He denies any history of actually having a seizure but says this was started s/p thyroid coma as a prophylactic measure to prevent seizure Health Screener talked with Romina, patient's estranged (ANNETTE signed): Romina reports that up until around 2020 when he had his coma and mini strokes, patient was is regular self without any overt psychiatric symptoms; only on database report writer's further inquiry did she say there was maybe some intermittent, minimal/mild paranoia. 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 She says afterwards he had some rehab and some memory impairment but nowhere near as significant as it is now. She says over the next 6 months his memory problems worsened. At some point they and he went to live with his sister. She says that for the past 8 months his memory has continued to deteriorate. For the past year he has been calling her around 50 or 60 times a day and would send constant text messages all day long. Would frequently show up at her house (she reports the house is fully hers, in her name). She continues to care about him and hope that he would eventually stop coming over as she continually explained that their relationship was over. Once, she let him into the house to see his nephew but then he would not leave an she said it took enormous effort to get him out the door. Since then she has not let him in the house. Despite this, he kept coming over to the house daily, knocking for hours at a time. She knew patient was struggling and did not want him to add to his troubles and so hesitated to call the police. However patient continued to come over and then actually started trying to get into the house, once using a credit card. He would call her daughter and say he standing outside the house. Patient would also stand for hours and front of the house. Romina started to get scared. He tried to get into the house about 3 weeks ago, she call the police who issued a no trespassing order. He violated the order, was arrested [facility]; immediately on release he would back to the house and got arrested again. Released again, he went over to the house and stood outside of it. Last week, just before this admission, send a text message to Romina that said she is not going to make it out alive. After this the order worker put a restraining order on patient. 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 Romina says this is what resulted in this admission. She says he accuses her of being an imposter on the phone; after interacting with the police he'll say they are not real financial administrative assistant, they are scammers... She reiterates that he is getting scary and that she is now scared of him. She is relieved to know that is in the hospital in hopes he can get help. Regarding history of psychiatric admissions, Romina says that patient was admitted to a psychiatric hospital at least 2 times following suicide attempts, which also occurred soon after his aneurysm/stroke/coma. She says the the 1st attempt (not necessarily resulting in admission) was an intentional overdose from a bottle of pills. Second attempt was attempt to hang himself. Third attempt patient tried to cut his neck with a circular saw. Patient was admitted; required stitches only Of note, 's reporting corroborates with both patient's sister and with patient's own account Patient educated on: diagnosis and medication risk/benefits Informed Consent: does not understand Reason for contiued inpatient stay Substantial Risk for: rapid decompensation Time Spent With Patient Time: Total time managing care of this patient today ____ minutes.
[2022-04-02 17:55] VITALS: BP 108/52; PULSE 86; TEMP 36.4
[2022-04-02] MEDS: risperiDONE 1 MG TABLET 5 MG PO (20:59)
[2022-04-03] MEDS: Levothyroxine Sodium 200 MCG TABLET PO (06:08)
[2022-04-03 09:55] VITALS: BP 116/64; PULSE 96; RESP 16; TEMP 36.6; O2SAT 99
[2022-04-03 16:19] VITALS: BP 138/69; PULSE 92; TEMP 36.8
--- NOTE | 2022-04-03 17:42 | HO.PSYCHPN ---
Subjective Subjective Date of Service: 04/03/22 Reason For Visit: capgrass delusions Interim History: Met with patient; discussed in teams No change; patient remains with paranoid thoughts about imposters; not clear about where he will go on discharge, still bringing up going with his . Agrees to family meeting with his sister and Skype call with . Mental Status Exam Mental Status Exam Narrative: Pt is alert and oriented; behavior is cooperative, friendly enough on approach and calm, but also disorganized, often standing in one place in hallway for extended periods of time; patient is not in distress; dressed in casual attire, clean cloths, adequate hygiene; mood is described as ok affect blunted; eye contact appropriate; Speech is normal rate, volume and prosody and not pressured; some psychomotor retardation present; thought process is goal directed but concrete; Thought content is on paranoid delusions; some anxiety over memory impairment; he is able to be pertinent to relevant topics when asked; denies any SI/HI. Does not seem internally preoccupied; and he denies AVH. Memory impairment significant Patients insight and judgment impaired. Diagnostics Vital Signs (24Hr): Vital Signs - 24 hr 04/02/22 17:55 04/03/22 09:55 04/03/22 16:19 Temperature 97.5 F 98 F 98.2 F Pulse Rate 86 96 92 Respiratory Rate 16 Blood Pressure 108/52 L 116/64 138/69 Pulse Oximetry 99 Oxygen Delivery Method Room Air BMI result Body Mass Index 26.2 Labs 03/12/22 21:36 03/14/22 08:37 Labs: Laboratory Results - last 48 hr 04/02/22 13:17 TSH 5.31 H Free T4 1.21 Imaging Radiology Impressions: ITS Impressions Head CT 03/12/22 20:45 IMPRESSION: 1. No acute intracranial pathology. Brain MRI 03/29/22 13:15 IMPRESSION: 1. No demonstrated acute intracranial abnormalities. No abnormal intracranial enhancement. 2. Mild to moderate nonspecific white matter changes most commonly seen with underlying microangiopathy. Mild generalized cerebral volume loss. Medications Medications Current Medications Acetaminophen (Acetaminophen 325 Mg Tablet) 650 mg PO Q6H PRN PRN Reason: Headache/Pain Mild Scale (1-3) Al Hydroxide/Mg Hydroxide (Magnesium Hydrox/Alum Hydrox 30 Ml Oral.Susp) 30 ml PO Q6H PRN PRN Reason: Heartburn/Nausea Hydroxyzine HCl (Hydroxyzine Hcl 25 Mg Tablet) 25 mg PO Q6H PRN PRN Reason: Anxiety Levothyroxine Sodium (Levothyroxine Sodium 200 Mcg Tablet) 200 mcg PO DAILY@0630 [facility] Last Admin: 04/03/22 06:08 Dose: 200 mcg Magnesium Hydroxide (Milk Of Magnesia 30 Ml Oral.Susp) 30 ml PO DAILY PRN PRN Reason: Constipation Risperidone (Risperidone 1 Mg Tablet) 5 mg PO BEDTIME [facility] Last Admin: 04/02/22 20:59 Dose: 5 mg Trazodone HCl (Trazodone Hcl 50 Mg Tablet) 50 mg PO BEDTIME PRN PRN Reason: Insomnia Allergies Allergies Allergy/AdvReac Type Severity Reaction Status Date / Time amoxicillin [AMOXICILLIN] Allergy Unknown VOMITING/ABD Unverified 11/19/19 19:25 PAIN Assessment & Plan Assessment & Plan (1) Cognitive and behavioral changes: Status: Acute Code(s): R41.89 - Other symptoms and signs involving cognitive functions and awareness; R46.89 - Other symptoms and signs involving appearance and behavior (2) Delusional disorder: Status: Acute Code(s): F22 - Delusional disorders (3) Hypothyroidism: Status: Acute Code(s): E03.9 - Hypothyroidism, unspecified Plan HPI: Patient is a 57-year-old male on a 12b with a history of hypothyroid disorder/thyroid coma, stroke and brain aneurysm who presents to the emergency room reportedly after his friends to come to a clinic, concern for his memory impairment, delusional thinking (about people being imposters), not taking medications and poor ADLs. Patient is a poor historian and collateral as necessary to further assess. -He has history of stroke and other comorbidities that could influence cognition. Collateral is necessary to figure out the timelines of his memory impairment and whether it has worsened. Also, will need history from Neurology to see what imaging has been done -patient does have some paranoid delusional thoughts; he is vague about them. He does look moderately disheveled however he does not appear overtly disorganized at this time -significantly elevated TSH; he does say he takes his thyroid medication daily but will need collateral -although he says he scared about his memory impairment, he denies all other psychiatric symptoms. -will consult with endocrinology regarding elevated TSH Hospital course: 03/15 Collateral helpful and reveals that he is having psychotic symptoms and is confused, possibly in the face of going off psychiatric medications; sister will try to get a hold of recent medication list; report writer did try to call patient's PCP Dr. Hatfield but was unable to connect (ANNETTE Signed). Hypothyroidism due to noncompliance with medication. Memory loss present since stroke 03/16 will start Risperdal 03/17 patient says tired from Risperdal in the morning so will switch to bedtime; remains with paranoid delusions; memory impairment. Very little insight Discussed case with team; discussed with nursing; reviewed vitals and WNL 03/18 no change in presentation; not open to further med changes. Patient used to be on Depakote but does not want to take it and refuses it Will need to discuss further with team. Patient seems to have memory impairment/cognitive dysfunction present since his stroke 2 years ago, Which according to collateral has not necessarily worsened. Patient also has some has paranoid delusional thinking. Seems to be a combination of both cognitive dysfunction and delusional thinking that brings him back to his house and violating restraining order. Patient is not currently under the care of a neurologist; report writer discussed this with him any agrees to go, however his sister says he typically has no interest in doctor's appointments or medication. Patient lives at his sister's who cares for his needs; he has no history of violence or aggression towards anyone and is without any SI or HI. 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 Although patient is not in imminent risk for harm to himself or others, he risks getting arrested in prosecuted for violating restraining order. Need to talk with patient's ; will discuss further with team. -Discussed case with nursing; reviewed vitals and WNL 03/19 patient remains with paranoid delusions and without insight; he plans to continue going back to the house since in his mind, it is his house. Disorganized behavior in that he will stand [address] for long periods of time not engaging with others. Says he feels a little tired from the Risperdal but continues to take it. He says he will likely not take it once discharged. 03/20 patient remains without insight and has paranoid delusions. Now having received collateral from his estranged Romina, it is more clear that patient's behaviors in the community are threatening. Romina is now scared of him. He has tried to break into his 1/estranged 's house, has violated and no trespass order multiple times and has been subsequently arrested; the week prior to this admission, a Restraining order was enacted following a text patient sent to Romina which said she is not going to make it out alive. Patient than violated this restraining order. Patient has very little to no insight regarding his behaviors. Patient intends to continue going back to the house since he thinks it is his house and has paranoid, delusional concerns about his . Patient says he will not take medication once he leaves. At this time, patient is not safe for discharge. 03/21 no change; neuro consult pending [place] 03/22 refused MRI since paranoid 03/26 no change in presentation 03/28 some improvement; for the first time he clearly articulates knowledge of the restraining order, the rules he must obey and the consequence of violating it. He says he will abide by it and that he has no choice. Pt thinks maybe his will let him come back to the house, but is open to the idea that he may be wrong. -consents to MRI he says he'll have to abide by the restraining order. Meter Installer inquires further, asking if pt will desist from going to the house. Pt corrects report writer and says he's mandated to stay 50 feet away, which is written right on the order which I have in my jacket pocket. He says he will abide it and i have to...i have no choice...I don't want to go to shelter. Of note, this is first time patient has clearly stated that he will abide by the restraining order and himself articulated that rules regarding restraining order. Hopefully this guido increased insight possibly due to Risperdal which would be encouraging if there is a treatment that can help patient be more safe in the community. 03/29 went for MRI 03/30 perhaps a little less confused, but difficult to tell. still w/ paranoid, delusional thinking. Agreed to Invega IM but then refused 03/31: continue current tx plan. Attempt to encourage him to take invega sustenna and check TSH/T4 04/01: Continue tx plan. Check thyroid studies. 04/02 no change; continues to say he will respect the restraining order. Will order repeat TSH 04/03 repeat TSH is grossly within normal limits and free T4 within normal limits ruling out hypothyroidism as a contributing factor to patient's confusion. FORMULATION/IMPRESSION: Patient is a 57-year-old male with no psychiatric history prior to 2020. 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 Over the past 6-8 months, patient's memory and cognitive function has significantly worsened; patient has developed paranoid delusions and is without insight. Due to a combination of paranoid delusional thinking and cognitive impairment, Patient has been increasingly harassing his estranged . The harassment has worsened and over the past few weeks and patient's estranged is now afraid: he has tried to break into her house, violated a no trespass order, sent a cryptic, threatening text message and has violated a restraining order. Patient does not seem to have any insight that his behaviors are harassing or frightening or that he is operating from paranoid delusions. It seems likely there is some relationship between between patient's paranoid delusions, his cognitive decline and history of either aneurysm/stroke/coma, given the clear timeline. Patient needs further workup with help from Neurology to better assess. At this time patient remains unsafe to be in the community and requires inpatient level of care for treatment and containment for safety and medication management. Plan CV Q 15 minute checks 1. Psychotic symptoms/delusions 2/2 to medical illness (aneurysm/stroke...) vs organic etiology Ordered INVEGA Sustenna 234mg IM; orderded on 03/30 (agreed then refused) Increase to Risperdal 4 mg q.h.s. Neurology consult MRI ordered but pt refused to consent [place] Concern that patient may need a guardian -Records pending: need more detailed history of aneurysm/stroke/coma as reports are all from non clinicians and without pertinent details -some history of prescribed psychotropic medications: mirtazapine 15 mg, Depakote ER 750 mg -symptoms seem to be worsening over the past 5 months (it now seems less likely that patient was adherent with medications) 2. Cognitive disorder s/p stroke, brain aneurysm, myxedema coma? All in 2020: Reportedly present since stroke in 2020 -neurology consult -MRI ordered; consent signed 3. Hypothyroid: resolved on levo labs on 04/03 TSH grossly WNL Free T4 WNL Continue levothyroxine 200mcg daily at 06:30 discussed with it quality assurance analyst Dr. 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 He says he does not want and it is to be discontinued. He denies any history of actually having a seizure but says this was started s/p thyroid coma as a prophylactic measure to prevent seizure Meter Installer talked with Romina, patient's estranged (ANNETTE signed): Romina reports that up until around 2020 when he had his coma and mini strokes, patient was is regular self without any overt psychiatric symptoms; only on report writer's further inquiry did she say there was maybe some intermittent, minimal/mild paranoia. 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 She says afterwards he had some rehab and some memory impairment but nowhere near as significant as it is now. She says over the next 6 months his memory problems worsened. At some point they and he went to live with his sister. She says that for the past 8 months his memory has continued to deteriorate. For the past year he has been calling her around 50 or 60 times a day and would send constant text messages all day long. Would frequently show up at her house (she reports the house is fully hers, in her name). She continues to care about him and hope that he would eventually stop coming over as she continually explained that their relationship was over. Once, she let him into the house to see his nephew but then he would not leave an she said it took enormous effort to get him out the door. Since then she has not let him in the house. Despite this, he kept coming over to the house daily, knocking for hours at a time. She knew patient was struggling and did not want him to add to his troubles and so hesitated to call the police. However patient continued to come over and then actually started trying to get into the house, once using a credit card. He would call her daughter and say he standing outside the house. Patient would also stand for hours and front of the house. Romina started to get scared. He tried to get into the house about 3 weeks ago, she call the police who issued a no trespassing order. He violated the order, was arrested and taken to [facility] for couple days; immediately on release he would back to the house and got arrested again. Released again, he went over to the house and stood outside of it. Last week, just before this admission, send a text message to Romina that said she is not going to make it out alive. After this the criminal judge put a restraining order on patient. He continued to violated, stating outside her house for hours; he left his sister's house and stayed at a friend's house near Romina's and for hours and hours, in the rain, in the snow would dragline oiler front of her house, only going to his friend's house to sleep for a few hours and then to repeat the next day. Romina says this is what resulted in this admission. She says he accuses her of being an imposter on the phone; after interacting with the police he'll say they are not real it systems administrator, they are scammers... She reiterates that he is getting scary and that she is now scared of him. She is relieved to know that is in the hospital in hopes he can get help. Regarding history of psychiatric admissions, Romina says that patient was admitted to a psychiatric hospital at least 2 times following suicide attempts, which also occurred soon after his aneurysm/stroke/coma. She says the the 1st attempt (not necessarily resulting in admission) was an intentional overdose from a bottle of pills. Second attempt was attempt to hang himself. Third attempt patient tried to cut his neck with a circular saw. Patient was admitted; required stitches only Of note, 's reporting corroborates with both patient's sister and with patient's own account Patient educated on: diagnosis Informed Consent: does not understand Reason for contiued inpatient stay Substantial Risk for: rapid decompensation Time Spent With Patient Time: Total time managing care of this patient today ____ minutes.
[2022-04-03] MEDS: risperiDONE 1 MG TABLET 5 MG PO (20:46)
[2022-04-04] MEDS: Levothyroxine Sodium 200 MCG TABLET PO (08:01)
[2022-04-04 09:55] VITALS: BP 115/66; PULSE 101; RESP 16; TEMP 36.8; O2SAT 97
[2022-04-04] MEDS: hydrOXYzine HCL 25 MG TABLET PO (11:44)
--- NOTE | 2022-04-04 12:31 | P.PNPSI_ITS ---
Subjective Subjective Date of Service: 04/04/22 Reason For Visit: [place] delusions Interim History: met w patient; discussed in teams; family meeting w/ sister pt remains confused about estranged 's intentions, saying he still thinks she probably wants him there; also, says he continues to sometimes believe that his sister was/is trying to sell his house. Sister shared that if he comes back to live there he has to take meds and go to appointments; pt said he would. She also says she does not want to be accused either, but to this pt was less sure how to respond saying he can't help thinking what he thinks. Sister and her better able to understand that pt's persistence and delusions are not likely to be undone and are out of his control. she shared how helpful he's been all his life, dedicated to family and what a complete change this is Mental Status Exam Mental Status Exam Narrative: Pt is alert and oriented; behavior is cooperative, friendly enough on approach and calm, but also disorganized, often standing in one place in hallway for extended periods of time; patient is not in distress; dressed in casual attire, clean cloths, adequate hygiene; mood is described as ok affect blunted; eye contact appropriate; Speech is normal rate, volume and prosody and not pressured; some psychomotor retardation present; thought process is goal dir ected but concrete; Thought content is on paranoid delusions; some anxiety over memory impairment; he is able to be pertinent to relevant topics when asked; denies any SI/HI. Does not seem internally preoccupied; and he denies AVH. Memory impairment significant Patients insight and judgment impaired. Diagnostics Vital Signs (24Hr): Vital Signs - 24 hr 04/03/22 16:19 04/04/22 09:55 Temperature 98.2 F 98.3 F Pulse Rate 92 101 H Respiratory Rate 16 Blood Pressure 138/69 115/66 Pulse Oximetry 97 Oxygen Delivery Method Room Air BMI result Body Mass Index 26.2 Labs 03/12/22 21:36 03/14/22 08:37 Labs: Laboratory Results - last 48 hr 04/02/22 13:17 TSH 5.31 H Free T4 1.21 Imaging Radiology Impressions: ITS Impressions Head CT 03/12/22 20:45 IMPRESSION: 1. No acute intracranial pathology. Brain MRI 03/29/22 13:15 IMPRESSION: 1. No demonstrated acute intracranial abnormalities. No abnormal intracranial enhancement. 2. Mild to moderate nonspecific white matter changes most commonly seen with underlying microangiopathy. Mild generalized cerebral volume loss. Medications Medications Current Medications Acetaminophen (Acetaminophen 325 Mg Tablet) 650 mg PO Q6H PRN PRN Reason: Headache/Pain Mild Scale (1-3) Al Hydroxide/Mg Hydroxide (Magnesium Hydrox/Alum Hydrox 30 Ml Oral.Susp) 30 ml PO Q6H PRN PRN Reason: Heartburn/Nausea Hydroxyzine HCl (Hydroxyzine Hcl 25 Mg Tablet) 25 mg PO Q6H PRN PRN Reason: Anxiety Last Admin: 04/04/22 11:44 Dose: 25 mg Levothyroxine Sodium (Levothyroxine Sodium 200 Mcg Tablet) 200 mcg PO DAILY@0630 [facility] Last Admin: 04/04/22 08:01 Dose: 200 mcg Magnesium Hydroxide (Milk Of Magnesia 30 Ml Oral.Susp) 30 ml PO DAILY PRN PRN Reason: Constipation Risperidone (Risperidone 1 Mg Tablet) 5 mg PO BEDTIME [facility] Last Admin: 04/03/22 20:46 Dose: 5 mg Trazodone HCl (Trazodone Hcl 50 Mg Tablet) 50 mg PO BEDTIME PRN PRN Reason: Insomnia Allergies Allergies Allergy/AdvReac Type Severity Reaction Status Date / Time amoxicillin [AMOXICILLIN] Allergy Unknown VOMITING/ABD Unverified 11/19/19 19:25 PAIN Assessment & Plan Assessment & Plan (1) Cognitive and behavioral changes: Status: Acute Code(s): R41.89 - Other symptoms and signs involving cognitive functions and awareness; R46.89 - Other symptoms and signs involving appearance and behavior (2) Delusional disorder: Status: Acute Code(s): F22 - Delusional disorders (3) Hypothyroidism: Status: Acute Code(s): E03.9 - Hypothyroidism, unspecified Plan HPI: Patient is a 57-year-old male on a 12b with a history of hypothyroid disorder/thyroid coma, stroke and brain aneurysm who presents to the emergency room reportedly after his friends to come to a clinic, concern for his memory impairment, delusional thinking (about people being imposters), not taking medications and poor ADLs. Patient is a poor historian and collateral as necessary to further assess. -He has history of stroke and other comorbidities that could influence cognition. Collateral is necessary to figure out the timelines of his memory impairment and whether it has worsened. Also, will need history from Neurology to see what imaging has been done -patient does have some paranoid delusional thoughts; he is vague about them. He does look moderately disheveled however he does not appear overtly disorganized at this time -significantly elevated TSH; he does say he takes his thyroid medication daily but will need collateral -although he says he scared about his memory impairment, he denies all other psychiatric symptoms. -will consult with endocrinology regarding elevated TSH Hospital course: 03/15 Collateral helpful and reveals that he is having psychotic symptoms and is confused, possibly in the face of going off psychiatric medications; sister will try to get a hold of recent medication list; food writer did try to call patient's PCP Dr. Hatfield but was unable to connect (ANNETTE Signed). Hypothyroidism due to noncompliance with medication. Memory loss present since stroke 03/16 will start Risperdal 03/17 patient says tired from Risperdal in the morning so will switch to bedtime; remains with paranoid delusions; memory impairment. Very little insight Discussed case with team; discussed with nursing; reviewed vitals and WNL 03/18 no change in presentation; not open to further med changes. Patient used t o be on Depakote but does not want to take it and refuses it Will need to discuss further with team. Patient seems to have memory impairment/cognitive dysfunction present since his stroke 2 years ago, Which according to collateral has not necessarily worsened. Patient also has some has paranoid delusional thinking. Seems to be a combination of both cognitive dysfunction and delusional thinking that brings him back to his house and violating restraining order. Patient is not currently under the care of a neurologist; food writer discussed this with him any agrees to go, however his sister says he typically has no interest in doctor's appointments or medication. Patient lives at his sister's who cares for his needs; he has no history of violence or aggression towards anyone and is without any SI or HI. 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 Although patient is not in imminent risk for harm to himself or others, he risks getting arrested in prosecuted for violating restraining order. Need to talk with patient's ; will discuss further with team. -Discussed case with nursing; reviewed vitals and WNL 03/19 patient remains with paranoid delusions and without insight; he plans to continue going back to the house since in his mind, it is his house. Disorganized behavior in that he will stand [address] for long periods of time not engaging with others. Says he feels a little tired from the Risperdal but continues to take it. He says he will likely not take it once discharged. 03/20 patient remains without insight and has paranoid delusions. Now having received collateral from his estranged Romina, it is more clear that patient's behaviors in the community are threatening. Romina is now scared of him. He has tried to break into his 1/estranged 's house, has violated and no trespass order multiple times and has been subsequently arrested; the week prior to this admission, a Restraining order was enacted following a text patient sent to Romina which said she is not going to make it out alive. Patient than violated this restraining order. Patient has very little to no insight regarding his behaviors. Patient intends to continue going back to the house since he thinks it is his house and has paranoid, delusional concerns about his . Patient says he will not take medication once he leaves. At this time, patient is not safe for discharge. 03/21 no change; neuro consult pending [place] 03/22 refused MRI since paranoid 03/26 no change in presentation 03/28 some improvement; for the first time he clearly articulates knowledge of the restraining order, the rules he must obey and the consequence of violating it. He says he will abide by it and that he has no choice. Pt thinks maybe his will let him come back to the house, but is open to the idea that he may be wrong. -consents to MRI he says he'll have to abide by the restraining order. [employer] Counter Associate inquires further, asking if pt will desist from going to the house. Pt corrects food writer and says he's mandated to stay 50 feet away, which is written right on the order which I have in my jacket pocket. He says he will abide it and i have to...i have no choice...I don't want to go to assisted. Of note, this is first time patient has harrison ro stated that he will abide by the restraining order and himself articulated that rules regarding restraining order. Hopefully this guido increased insight possibly due to Risperdal which would be encouraging if there is a treatment that can help patient be more safe in the community. 03/29 went for MRI 03/30 perhaps a little less confused, but difficult to tell. still w/ paranoid, delusional thinking. Agreed to Invega IM but then refused 03/31: continue current tx plan. Attempt to encourage him to take invega sustenna and check TSH/T4 04/01: Continue tx plan. Check thyroid studies. 04/02 no change; continues to say he will respect the restraining order. Will order repeat TSH 04/03 repeat TSH is grossly within normal limits and free T4 within normal limits ruling out hypothyroidism as a contributing factor to patient's confusion. 04/04 family meeting; remains difficult to assess what pt understands about his illness. Automotive [employer] Counter Associate shared how his worries of imposters are delusions but he is am bivalent FORMULATION/IMPRESSION: Patient is a 57-year-old male with no psychiatric history prior to 2020. 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 Over the past 6-8 months, patient's memory and cognitive function has significantly worsened; patient has developed paranoid delusions and is without insight. Due to a combination of paranoid delusional thinking and cognitive impairment, Patient has been increasingly harassing his estranged . The harassment has worsened and over the past few weeks and patient's estranged is now afraid: he has tried to break into her house, violated a no trespass order, sent a cryptic, threatening text message and has violated a restraining order. Patient does not seem to have any insight that his behaviors are harassing or frightening or that he is operating from paranoid delusions. It seems likely there is some relationship between between patient's paranoid delusions, his cognitive decline and history of either aneurysm/stroke/coma, given the clear timeline. Patient needs further workup with help from Neurology to better assess. At this time patient remains unsafe to be in the community and requires inpatient level of care for treatment and containment for safety and medication management. Plan CV Q 15 minute checks 1. Psychotic symptoms/delusions 2/2 to medical illness (aneurysm/stroke...) vs organic etiology Ordered INVEGA Sustenna 234mg IM; orderded on 03/30 (agreed then refused) Increase to Risperdal 5 mg q.h.s. Neurology consult MRI ordered but pt refused to consent [place] Concern that patient may need a guardian -Records pending: need more detailed history of aneurysm/stroke/coma as reports are all from non clinicians and without pertinent details -some history of prescribed psychotropic medications: mirtazapine 15 mg, Depakote ER 750 mg -symptoms seem to be worsening over the past 5 months (it now seems less likely that patient was adherent with medications) 2. Cognitive disorder s/p stroke, brain aneurysm, myxedema coma? All in 2020: Reportedly present since stroke in 2020 -neurology consult -MRI ordered; consent signed 3. Hypothyroid: resolved on levo labs on 04/03 TSH grossly WNL Free T4 WNL Continue levothyroxine 200mcg daily at 06:30 discussed with cd reactor operator head Dr. 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 He says he does not want and it is to be discontinued. He denies any history of actually having a seizure but says this was started s/p thyroid coma as a prophylactic measure to prevent seizure [employer] Counter Associate talked with Romina, patient's estranged (ANNETTE signed): Romina reports that up until around 2020 when he had his coma and mini strokes, patient was is regular self without any overt psychiatric symptoms; only on food writer's further inquiry did she say there was maybe some intermittent, minimal/mild paranoia. 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 She says afterwards he had some rehab and some memory impairment but nowhere near as significant as it is now. She says over the next 6 months his memory problems worsened. At some point they and he went to live with his sister. She says that for the past 8 months his memory has continued to deteriorate. For the past year he has been calling her around 50 or 60 times a day and would send constant text messages all day long. Would frequently show up at her house (she reports the house is fully hers, in her name). She continues to care about him and hope that he would eventually stop coming over as she continually explained that their relationship was over. Once, she let him into the house to see his nephew but then he would not leave an she said it took enormous effort to get him out the door. Since then she has not let him in the house. Despite this, he kept coming over to the house daily, knocking for hours at a time. She knew patient was struggling and did not want him to add to his troubles and so hesitated to call the police. However patient continued to come over and then actually started trying to get into the house, once using a credit card. He would call her daughter and say he standing outside the house. Patient would also stand for hours and front of the house. Romina started to get scared. He tried to get into the house about 3 weeks ago, she call the police who issued a no trespassing order. He violated the order, was arrested and taken to [facility] assisted for couple days; immediately on release he would back to the house and got arrested again. Released again, he went over to the house and stood outside of it. Last week, just before this admission, send a text message to Romina that said she is not going to make it out alive. After this the factory representative put a restraining order on patient. He continued to violated, stating outside her house for hours; he left his sister's house and stayed at a friend's house near Romina and for hours and hours, in the rain, in the snow would clinical account liaison front of her house, only going to his friend's house to sleep for a few hours and then to repeat the next day. Romina says this is what resulted in this admission. She says he accuses her of being an imposter on the phone; after interacting with the police he'll say they are not real [place], they are scammers... She reiterates that he is getting scary and that she is now scared of him. She is relieved to know that is in the hospital in hopes he can get help. Regarding history of psychiatric admissions, Romina says that patient was admitted to a psychiatric hospital at least 2 times following suicide attempts, which also occurred soon after his aneurysm/stroke/coma. She says the the 1st attempt (not necessarily resulting in admission) was an intentional overdose from a bottle of pills. Second attempt was attempt to hang himself. Third attempt patient tried to cut his neck with a circular saw. Patient was admitted; required stitches only Of note, 's reporting corroborates with both patient's sister and with lena ent's own account Patient educated on: diagnosis, medication risk/benefits and medical condition Informed Consent: understands, does not understand and further education needed Reason for contiued inpatient stay Substantial Risk for: inability to function Time Spent With Patient Time: Total time managing care of this patient today ____ minutes.
[2022-04-04 18:00] VITALS: BP 120/75; PULSE 68; RESP 16; TEMP 35.9; O2SAT 98
[2022-04-04] MEDS: risperiDONE 1 MG TABLET 5 MG PO (20:24)
[2022-04-05] MEDS: Levothyroxine Sodium 200 MCG TABLET PO (08:36)
[2022-04-05 09:20] VITALS: BP 115/71; PULSE 107; RESP 16; TEMP 36.3; O2SAT 97; BMI 26.8
[2022-04-05] MEDS: risperiDONE 3 MG TABLET 6 MG PO (21:20)
[2022-04-05 21:22] VITALS: BP 135/70; PULSE 80
--- NOTE | 2022-04-05 23:19 | HO.PSYCHPN ---
Subjective Subjective Date of Service: 04/05/22 Reason For Visit: [place] delusions Interim History: met patient; discussed in teams no change to presentation. refuses any med changes; remains ambivalent about whether people on phone (/sister) are imposters or if mind playing tricks on him. He says maybe...i don't know... Says he feels in limbo not knowing where he'll go on dc, sisters,, wifes? However he says he's starting to get the message from his that she does not want him there... Mental Status Exam Mental Status Exam Narrative: Pt is alert and oriented; behavior is cooperative, friendly enough on approach and calm, but also disorganized, often standing in one place in hallway for extended periods of time; patient is not in distress; dressed in casual attire, clean cloths, adequate hygiene; mood is described as ok affect blunted; eye contact appropriate; Speech is normal rate, volume and prosody and not pressured; some psychomotor retardation present; thought process is goal directed but concrete; Thought content is on paranoid delusions; some anxiety over memory impairment; he is able to be pertinent to relevant topics when asked; denies any SI/HI. Does not seem internally preoccupied; and he denies AVH. Memory impairment significant Patients insight and judgment impaired. Diagnostics Vital Signs (24Hr): Vital Signs - 24 hr 04/05/22 09:20 04/05/22 21:22 Temperature 97.4 F Pulse Rate 107 H 80 Respiratory Rate 16 Blood Pressure 115/71 135/70 Pulse Oximetry 97 Oxygen Delivery Method Room Air BMI result Body Mass Index 26.8 Labs 03/12/22 21:36 03/14/22 08:37 Imaging Radiology Impressions: ITS Impressions Head CT 03/12/22 20:45 IMPRESSION: 1. No acute intracranial pathology. Brain MRI 03/29/22 13:15 IMPRESSION: 1. No demonstrated acute intracranial abnormalities. No abnormal intracranial enhancement. 2. Mild to moderate nonspecific white matter changes most commonly seen with underlying microangiopathy. Mild generalized cerebral volume loss. Medications Medications Current Medications Acetaminophen (Acetaminophen 325 Mg Tablet) 650 mg PO Q6H PRN PRN Reason: Headache/Pain Mild Scale (1-3) Al Hydroxide/Mg Hydroxide (Magnesium Hydrox/Alum Hydrox 30 Ml Oral.Susp) 30 ml PO Q6H PRN PRN Reason: Heartburn/Nausea Levothyroxine Sodium (Levothyroxine Sodium 200 Mcg Tablet) 200 mcg PO DAILY@0630 [facility] Last Admin: 04/05/22 08:36 Dose: 200 mcg Magnesium Hydroxide (Milk Of Magnesia 30 Ml Oral.Susp) 30 ml PO DAILY PRN PRN Reason: Constipation Risperidone (Risperidone 3 Mg Tablet) 6 mg PO BEDTIME [facility] Last Admin: 04/05/22 21:20 Dose: 6 mg Trazodone HCl (Trazodone Hcl 50 Mg Tablet) 50 mg PO BEDTIME PRN PRN Reason: Insomnia Allergies Allergies Allergy/AdvReac Type Severity Reaction Status Date / Time amoxicillin [AMOXICILLIN] Allergy Unknown VOMITING/ABD Unverified 11/19/19 19:25 PAIN Assessment & Plan Assessment & Plan (1) Cognitive and behavioral changes: Status: Acute Code(s): R41.89 - Other symptoms and signs involving cognitive functions and awareness; R46.89 - Other symptoms and signs involving appearance and behavior (2) Delusional disorder: Status: Acute Code(s): F22 - Delusional disorders (3) Hypothyroidism: Status: Acute Code(s): E03.9 - Hypothyroidism, unspecified Plan HPI: Patient is a 57-year-old male on a 12b with a history of hypothyroid disorder/thyroid coma, stroke and brain aneurysm who presents to the emergency room reportedly after his friends to come to a clinic, concern for his memory impairment, delusional thinking (about people being imposters), not taking medications and poor ADLs. Patient is a poor historian and collateral as necessary to further assess. -He has history of stroke and other comorbidities that could influence cognition. Collateral is necessary to figure out the timelines of his memory impairment and whether it has worsened. Also, will need history from Neurology to see what imaging has been done -patient does have some paranoid delusional thoughts; he is vague about them. He does look moderately disheveled however he does not appear overtly disorganized at this time -significantly elevated TSH; he does say he takes his thyroid medication daily but will need collateral -although he says he scared about his memory impairment, he denies all other psychiatric symptoms. -will consult with endocrinology regarding elevated TSH Hospital course: 03/15 Collateral helpful and reveals that he is having psychotic symptoms and is confused, possibly in the face of going off psychiatric medications; sister will try to get a hold of recent medication list; writer technical publications did try to call patient's PCP Dr. Hatfield but was unable to connect (ANNETTE Signed). Hypothyroidism due to noncompliance with medication. Memory loss present since stroke 03/16 will start Risperdal 03/17 patient says tired from Risperdal in the morning so will switch to bedtime; remains with paranoid delusions; memory impairment. Very little insight Discussed case with team; discussed with nursing; reviewed vitals and WNL 03/18 no change in presentation; not open to further med changes. Patient used to be on Depakote but does not want to take it and refuses it Will need to discuss further with team. Patient seems to have memory impairment/cognitive dysfunction present since his stroke 2 years ago, Which according to collateral has not necessarily worsened. Patient also has some has paranoid delusional thinking. Seems to be a combination of both cognitive dysfunction and delusional thinking that brings him back to his house and violating restraining order. Patient is not currently under the care of a neurologist; writer technical publications discussed this with him any agrees to go, however his sister says he typically has no interest in doctor's appointments or medication. Patient lives at his sister's who cares for his needs; he has no history of violence or aggression towards anyone and is without any SI or HI. 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 Although patient is not in imminent risk for harm to himself or others, he risks getting arrested in prosecuted for violating restraining order. Need to talk with patient's ; will discuss further with team. -Discussed case with nursing; reviewed vitals and WNL 03/19 patient remains with paranoid delusions and without insight; he plans to continue going back to the house since in his mind, it is his house. Disorganized behavior in that he will stand [address] for long periods of time not engaging with others. Says he feels a little tired from the Risperdal but continues to take it. He says he will likely not take it once discharged. 03/20 patient remains without insight and has paranoid delusions. Now having received collateral from his estranged Romina, it is more clear that patient's behaviors in the community are threatening. Romina is now scared of him. He has tried to break into his 1/estranged 's house, has violated and no trespass order multiple times and has been subsequently arrested; the week prior to this admission, a Restraining order was enacted following a text patient sent to Romina which said she is not going to make it out alive. Patient than violated this restraining order. Patient has very little to no insight regarding his behaviors. Patient intends to continue going back to the house since he thinks it is his house and has paranoid, delusional concerns about his . Patient says he will not take medication once he leaves. At this time, patient is not safe for discharge. 03/21 no change; neuro consult pending [place] 03/22 refused MRI since paranoid 03/26 no change in presentation 03/28 some improvement; for the first time he clearly articulates knowledge of the restraining order, the rules he must obey and the consequence of violating it. He says he will abide by it and that he has no choice. Pt thinks maybe his will let him come back to the house, but is open to the idea that he may be wrong. -consents to MRI he says he'll have to abide by the restraining order. Auto Air Conditioning Apprentice inquires further, asking if pt will desist from going to the house. Pt corrects writer technical publications and says he's mandated to stay 50 feet away, which is written right on the order which I have in my jacket pocket. He says he will abide it and i have to...i have no choice...I don't want to go to group home. Of note, this is first time patient has clearly stated that he will abide by the restraining order and himself articulated that rules regarding restraining order. Hopefully this guido increased insight possibly due to Risperdal which would be encouraging if there is a treatment that can help patient be more safe in the community. 03/29 went for MRI 03/30 perhaps a little less confused, but difficult to tell. still w/ paranoid, delusional thinking. Agreed to Invega IM but then refused 03/31: continue current tx plan. Attempt to encourage him to take invega sustenna and check TSH/T4 04/01: Continue tx plan. Check thyroid studies. 04/02 no change; continues to say he will respect the restraining order. Will order repeat TSH 04/03 repeat TSH is grossly within normal limits and free T4 within normal limits ruling out hypothyroidism as a contributing factor to patient's confusion. 04/04 family meeting; remains difficult to assess what pt understands about his illness. Auto Air Conditioning Apprentice shared how his worries of imposters are delusions but he is ambivalent / planned zoom meeting w/ estranged but unable to get ahold of her; increase risperdal to 6mg to see if can help with persistent delusions FORMULATION/IMPRESSION: Patient is a 57-year-old male with no psychiatric history prior to 2020. 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 Over the past 6-8 months, patient's memory and cognitive function has significantly worsened; patient has developed paranoid delusions and is without insight. Due to a combination of paranoid delusional thinking and cognitive impairment, Patient has been increasingly harassing his estranged . The harassment has worsened and over the past few weeks and patient's estranged is now afraid: he has tried to break into her house, violated a no trespass order, sent a cryptic, threatening text message and has violated a restraining order. Patient does not seem to have any insight that his behaviors are harassing or frightening or that he is operating from paranoid delusions. It seems likely there is some relationship between between patient's paranoid delusions, his cognitive decline and history of either aneurysm/stroke/coma, given the clear timeline. Patient needs further workup with help from Neurology to better assess. At this time patient remains unsafe to be in the community and requires inpatient level of care for treatment and containment for safety and medication management. Plan CV Q 15 minute checks 1. Psychotic symptoms/delusions 2/2 to medical illness (aneurysm/stroke...) vs organic etiology Ordered INVEGA Sustenna 234mg IM; orderded on 03/30 (agreed then refused) Increase to Risperdal 6 mg q.h.s. Neurology consult MRI ordered but pt refused to consent [place] Concern that patient may need a guardian -Records pending: need more detailed history of aneurysm/stroke/coma as reports are all from non clinicians and without pertinent details -some history of prescribed psychotropic medications: mirtazapine 15 mg, Depakote ER 750 mg -symptoms seem to be worsening over the past 5 months (it now seems less likely that patient was adherent with medications) 2. Cognitive disorder s/p stroke, brain aneurysm, myxedema coma? All in 2020: Reportedly present since stroke in 2020 -neurology consult -MRI ordered; consent signed 3. Hypothyroid: resolved on levo labs on 04/03 TSH grossly WNL Free T4 WNL Continue levothyroxine 200mcg daily at 06:[address] operator [address] 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 He says he does not want and it is to be discontinued. He denies any history of actually having a seizure but says this was started s/p thyroid coma as a prophylactic measure to prevent seizure Auto Air Conditioning Apprentice talked with Romina, patient's estranged (ANNETTE signed): Romina reports that up until around 2020 when he had his coma and mini strokes, patient was is regular self without any overt psychiatric symptoms; only on writer technical publications's further inquiry did she say there was maybe some intermittent, minimal/mild paranoia. 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 She says afterwards he had some rehab and some memory impairment but nowhere near as significant as it is now. She says over the next 6 months his memory problems worsened. At some point they and he went to live with his sister. She says that for the past 8 months his memory has continued to deteriorate. For the past year he has been calling her around 50 or 60 times a day and would send constant text messages all day long. Would frequently show up at her house (she reports the house is fully hers, in her name). She continues to care about him and hope that he would eventually stop coming over as she continually explained that their relationship was over. Once, she let him into the house to see his nephew but then he would not leave an she said it took enormous effort to get him out the door. Since then she has not let him in the house. Despite this, he kept coming over to the house daily, knocking for hours at a time. She knew patient was struggling and did not want him to add to his troubles and so hesitated to call the police. However patient continued to come over and then actually started trying to get into the house, once using a credit card. He would call her daughter and say he standing outside the house. Patient would also stand for hours and front of the house. Romina started to get scared. He tried to get into the house about 3 weeks ago, she call the police who issued a no trespassing order. He violated the order, was arrested and taken to [facility] for couple days; immediately on release he would back to the house and got arrested again. Released again, he went over to the house and stood outside of it. Last week, just before this admission, send a text message to Romina that said she is not going to make it out alive. After this the document examiner put a restraining order on patient. He continued to violated, stating outside her house for hours; he left his sister's house and stayed at a friend's house near Romina's and for hours and hours, in the rain, in the snow would industrial engineering professor front of her house, only going to his friend's house to sleep for a few hours and then to repeat the next day. Romina says this is what resulted in this admission. She says he accuses her of being an imposter on the phone; after interacting with the police he'll say they are not real analysis intern, they are scammers... She reiterates that he is getting scary and that she is now scared of him. She is relieved to know that is in the hospital in hopes he can get help. Regarding history of psychiatric admissions, Romina says that patient was admitted to a psychiatric hospital at least 2 times following suicide attempts, which also occurred soon after his aneurysm/stroke/coma. She says the the 1st attempt (not necessarily resulting in admission) was an intentional overdose from a bottle of pills. Second attempt was attempt to hang himself. Third attempt patient tried to cut his neck with a circular saw. Patient was admitted; required stitches only Of note, 's reporting corroborates with both patient's sister and with patient's own account Patient educated on: diagnosis, medication risk/benefits and medical condition Informed Consent: understands, does not understand and further education needed Reason for contiued inpatient stay Substantial Risk for: med/psych decompensation Time Spent With Patient Time: Total time managing care of this patient today ____ minutes.
[2022-04-06] MEDS: Levothyroxine Sodium 200 MCG TABLET PO (05:52)
[2022-04-06 09:36] VITALS: BP 128/58; PULSE 103; RESP 16; TEMP 36.6; O2SAT 98
--- NOTE | 2022-04-06 17:23 | HO.PSYCHPN ---
Subjective Subjective Date of Service: 04/06/22 Reason For Visit: capgrass delusions Interim History: met w/ patient; discussed in teams; talked on phone w/ sister whose going out of town pt says he talked w/ Romina who said no no, no on whether he can come to house and that she sounds pretty adamant... he also says maybe the fact that he questions her is maybe [his] male ego... but then says he's not sure if was actually her on phone. Mental Status Exam Mental Status Exam Narrative: Pt is alert and oriented; behavior is cooperative, friendly enough on approach and calm, but also disorganized, often standing in one place in hallway for extended periods of time; patient is not in distress; dressed in casual attire, clean cloths, adequate hygiene; mood is described as ok affect blunted; eye contact appropriate; Speech is normal rate, volume and prosody and not pressured; some psychomotor retardation present; thought process is goal directed but concrete; Thought content is on paranoid delusions; some anxiety over memory impairment; he is able to be pertinent to relevant topics when asked; denies any SI/HI. Does not seem internally preoccupied; and he denies AVH. Memory impairment significant Patients insight and judgment impaired. Diagnostics Vital Signs (24Hr): Vital Signs - 24 hr 04/05/22 21:22 04/06/22 09:36 Temperature 97.8 F Pulse Rate 80 103 H Respiratory Rate 16 Blood Pressure 135/70 128/58 L Pulse Oximetry 98 Oxygen Delivery Method Room Air BMI result Body Mass Index 26.8 Labs 03/12/22 21:36 03/14/22 08:37 Imaging Radiology Impressions: ITS Impressions Head CT 03/12/22 20:45 IMPRESSION: 1. No acute intracranial pathology. Brain MRI 03/29/22 13:15 IMPRESSION: 1. No demonstrated acute intracranial abnormalities. No abnormal intracranial enhancement. 2. Mild to moderate nonspecific white matter changes most commonly seen with underlying microangiopathy. Mild generalized cerebral volume loss. Medications Medications Current Medications Acetaminophen (Acetaminophen 325 Mg Tablet) 650 mg PO Q6H PRN PRN Reason: Headache/Pain Mild Scale (1-3) Al Hydroxide/Mg Hydroxide (Magnesium Hydrox/Alum Hydrox 30 Ml Oral.Susp) 30 ml PO Q6H PRN PRN Reason: Heartburn/Nausea Levothyroxine Sodium (Levothyroxine Sodium 200 Mcg Tablet) 200 mcg PO DAILY@0630 [facility] Last Admin: 04/06/22 05:52 Dose: 200 mcg Magnesium Hydroxide (Milk Of Magnesia 30 Ml Oral.Susp) 30 ml PO DAILY PRN PRN Reason: Constipation Risperidone (Risperidone 3 Mg Tablet) 6 mg PO BEDTIME [facility] Last Admin: 04/05/22 21:20 Dose: 6 mg Trazodone HCl (Trazodone Hcl 50 Mg Tablet) 50 mg PO BEDTIME PRN PRN Reason: Insomnia Allergies Allergies Allergy/AdvReac Type Severity Reaction Status Date / Time amoxicillin [AMOXICILLIN] Allergy Unknown VOMITING/ABD Unverified 11/19/19 19:25 PAIN Assessment & Plan Assessment & Plan (1) Cognitive and behavioral changes: Status: Acute Code(s): R41.89 - Other symptoms and signs involving cognitive functions and awareness; R46.89 - Other symptoms and signs involving appearance and behavior (2) Delusional disorder: Status: Acute Code(s): F22 - Delusional disorders (3) Hypothyroidism: Status: Acute Code(s): E03.9 - Hypothyroidism, unspecified Plan HPI: Patient is a 57-year-old male on a 12b with a history of hypothyroid disorder/thyroid coma, stroke and brain aneurysm who presents to the emergency room reportedly after his friends to come to a clinic, concern for his memory impairment, delusional thinking (about people being imposters), not taking medications and poor ADLs. Patient is a poor historian and collateral as necessary to further assess. -He has history of stroke and other comorbidities that could influence cognition. Collateral is necessary to figure out the timelines of his memory impairment and whether it has worsened. Also, will need history from Neurology to see what imaging has been done -patient does have some paranoid delusional thoughts; he is vague about them. He does look moderately disheveled however he does not appear overtly disorganized at this time -significantly elevated TSH; he does say he takes his thyroid medication daily but will need collateral -although he says he scared about his memory impairment, he denies all other psychiatric symptoms. -will consult with endocrinology regarding elevated TSH Hospital course: 03/15 Collateral helpful and reveals that he is having psychotic symptoms and is confused, possibly in the face of going off psychiatric medications; sister will try to get a hold of recent medication list; screen writer did try to call patient's PCP Dr. Hatfield but was unable to connect (ANNETTE Signed). Hypothyroidism due to noncompliance with medication. Memory loss present since stroke 03/16 will start Risperdal 03/17 patient says tired from Risperdal in the morning so will switch to bedtime; remains with paranoid delusions; memory impairment. Very little insight Discussed case with team; discussed with nursing; reviewed vitals and WNL 03/18 no change in presentation; not open to further med changes. Patient used to be on Depakote but does not want to take it and refuses it Will need to discuss further with team. Patient seems to have memory impairment/cognitive dysfunction present since his stroke 2 years ago, Which according to collateral has not necessarily worsened. Patient also has some has paranoid delusional thinking. Seems to be a combination of both cognitive dysfunction and delusional thinking that brings him back to his house and violating restraining order. Patient is not currently under the care of a neurologist; screen writer discussed this with him any agrees to go, however his sister says he typically has no interest in doctor's appointments or medication. Patient lives at his sister's who cares for his needs; he has no history of violence or aggression towards anyone and is without any SI or HI. 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 Although patient is not in imminent risk for harm to himself or others, he risks getting arrested in prosecuted for violating restraining order. Need to talk with patient's ; will discuss further with team. -Discussed case with nursing; reviewed vitals and WNL 03/19 patient remains with paranoid delusions and without insight; he plans to continue going back to the house since in his mind, it is his house. Disorganized behavior in that he will stand [address] for long periods of time not engaging with others. Says he feels a little tired from the Risperdal but continues to take it. He says he will likely not take it once discharged. 03/20 patient remains without insight and has paranoid delusions. Now having received collateral from his estranged Romina, it is more clear that patient's behaviors in the community are threatening. Romina is now scared of him. He has tried to break into his 1/estranged 's house, has violated and no trespass order multiple times and has been subsequently arrested; the week prior to this admission, a Restraining order was enacted following a text patient sent to Romina which said she is not going to make it out alive. Patient than violated this restraining order. Patient has very little to no insight regarding his behaviors. Patient intends to continue going back to the house since he thinks it is his house and has paranoid, delusional concerns about his . Patient says he will not take medication once he leaves. At this time, patient is not safe for discharge. 03/21 no change; neuro consult pending [facility] 03/22 refused MRI since paranoid 03/26 no change in presentation 03/28 some improvement; for the first time he clearly articulates knowledge of the restraining order, the rules he must obey and the consequence of violating it. He says he will abide by it and that he has no choice. Pt thinks maybe his will let him come back to the house, but is open to the idea that he may be wrong. -consents to MRI he says he'll have to abide by the restraining order. Paper Machine Backtender inquires further, asking if pt will desist from going to the house. Pt corrects screen writer and says he's mandated to stay 50 feet away, which is written right on the order which I have in my jacket pocket. He says he will abide it and i have to...i have no choice...I don't want to go [facility] [place] [facility]. Of note, this is first time patient has clearly stated that he will abide by the restraining order and himself articulated that rules regarding restraining order. Hopefully this guido increased insight possibly due to Risperdal which would be encouraging if there is a treatment that can help patient be more safe in the community. 03/29 went for MRI 03/30 perhaps a little less confused, but difficult to tell. still w/ paranoid, delusional thinking. Agreed to Invega IM but then refused 03/31: continue current tx plan. Attempt to encourage him to take invega sustenna and check TSH/T4 04/01: Continue tx plan. Check thyroid studies. 04/02 no change; continues to say he will respect the restraining order. Will order repeat TSH 04/03 repeat TSH is grossly within normal limits and free T4 within normal limits ruling out hypothyroidism as a contributing factor to patient's confusion. 04/04 family meeting; remains difficult to assess what pt understands about his illness. Paper Machine Backtender shared how his worries of imposters are delusions but he is ambivalent / planned zoom meeting w/ estranged but unable to get ahold of her; increase risperdal to 6mg to see if can help with persistent delusions /3 continue current tx plan FORMULATION/IMPRESSION: Patient is a 57-year-old male with no psychiatric history prior to 2020. 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 Over the past 6-8 months, patient's memory and cognitive function has significantly worsened; patient has developed paranoid delusions and is without insight. Due to a combination of paranoid delusional thinking and cognitive impairment, Patient has been increasingly harassing his estranged . The harassment has worsened and over the past few weeks and patient's estranged is now afraid: he has tried to break into her house, violated a no trespass order, sent a cryptic, threatening text message and has violated a restraining order. Patient does not seem to have any insight that his behaviors are harassing or frightening or that he is operating from paranoid delusions. It seems likely there is some relationship between between patient's paranoid delusions, his cognitive decline and history of either aneurysm/stroke/coma, given the clear timeline. Patient needs further workup with help from Neurology to better assess. At this time patient remains unsafe to be in the community and requires inpatient level of care for treatment and containment for safety and medication management. Plan CV Q 15 minute checks 1. Psychotic symptoms/delusions 2/2 to medical illness (aneurysm/stroke...) vs organic etiology refuses iNVEGA Sustenna 234mg IM Increase to Risperdal 6 mg q.h.s. Neurology consult MRI ordered but pt refused to consent [facility] Concern that patient may need a guardian -Records pending: need more detailed history of aneurysm/stroke/coma as reports are all from non clinicians and without pertinent details -some history of prescribed psychotropic medications: mirtazapine 15 mg, Depakote ER 750 mg -symptoms seem to be worsening over the past 5 months (it now seems less likely that patient was adherent with medications) 2. Cognitive disorder s/p stroke, brain aneurysm, myxedema coma? All in 2020: Reportedly present since stroke in 2020 -neurology consult -MRI ordered; consent signed 3. Hypothyroid: resolved on levo labs on 04/03 TSH grossly WNL Free T4 WNL Continue levothyroxine 200mcg daily at 06:30 [address] design engineering manager Dr. 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 He says he does not want and it is to be discontinued. He denies any history of actually having a seizure but says this was started s/p thyroid coma as a prophylactic measure to prevent seizure Paper Machine Backtender talked with Romina, patient's estranged (ANNETTE signed): Romina reports that up until around 2020 when he had his coma and mini strokes, patient was is regular self without any overt psychiatric symptoms; only on screen writer's further inquiry did she say there was maybe some intermittent, minimal/mild paranoia. 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 She says afterwards he had some rehab and some memory impairment but nowhere near as significant as it is now. She says over the next 6 months his memory problems worsened. At some point they and he went to live with his sister. She says that for the past 8 months his memory has continued to deteriorate. For the past year he has been calling her around 50 or 60 times a day and would send constant text messages all day long. Would frequently show up at her house (she reports the house is fully hers, in her name). She continues to care about him and hope that he would eventually stop coming over as she continually explained that their relationship was over. Once, she let him into the house to see his nephew but then he would not leave an she said it took enormous effort to get him out the door. Since then she has not let him in the house. Despite this, he kept coming over to the house daily, knocking for hours at a time. She knew patient was struggling and did not want him to add to his troubles and so hesitated to call the police. However patient continued to come over and then actually started trying to get into the house, once using a credit card. He would call her daughter and say he standing outside the house. Patient would also stand for hours and front of the house. Romina started to get scared. He tried to get into the house about 3 weeks ago, she call the police who issued a no trespassing order. He violated the order, was arrested and taken to [facility] for couple days; immediately on release he would back to the house and got arrested again. Released again, he went over to the house and stood outside of it. Last week, just before this admission, send a text message to Romina that said she is not going to make it out alive. After this the regional sales consultant put a restraining order on patient. He continued to violated, stating outside her house for hours; he left his sister's house and stayed at a friend's house near Romina's and for hours and hours, in the rain, in the snow would rn imaging front of her house, only going to his friend's house to sleep for a few hours and then to repeat the next day. Romina says this is what resulted in this admission. She says he accuses her of being an imposter on the phone; after interacting with the police he'll say they are not real ui developer with [employer], they are scammers... She reiterates that he is getting scary and that she is now scared of him. She is relieved to know that is in the hospital in hopes he can get help. Regarding history of psychiatric admissions, Romnia says that patient was admitted to a psychiatric hospital at least 2 times following suicide attempts, which also occurred soon after his aneurysm/stroke/coma. She says the the 1st attempt (not necessarily resulting in admission) was an intentional overdose from a bottle of pills. Second attempt was attempt to hang himself. Third attempt patient tried to cut his neck with a circular saw. Patient was admitted; required stitches only Of note, 's reporting corroborates with both patient's sister and with patient's own account Patient educated on: diagnosis Informed Consent: does not understand and further education needed Reason for contiued inpatient stay Substantial Risk for: med/psych decompensation Time Spent With Patient Time: Total time managing care of this patient today ____ minutes.
[2022-04-06 18:00] VITALS: BP 128/66; PULSE 94; RESP 16; TEMP 36.6; O2SAT 98
[2022-04-06] MEDS: risperiDONE 3 MG TABLET 6 MG PO (19:55)
[2022-04-07] MEDS: Levothyroxine Sodium 200 MCG TABLET PO (06:26)
[2022-04-07 08:59] VITALS: BP 132/64; PULSE 122; RESP 16; TEMP 36.7; O2SAT 97
--- NOTE | 2022-04-07 17:37 | HO.PSYCHPN ---
Subjective Subjective Date of Service: 04/07/22 Reason For Visit: [place]grass delusions Interim History: met with patient. Chart reviewed. Discussed with Nursing. Noted complex neurological history. Overall today reports no immediate concerns. Reports feeling safe in supported. Reports needing a place to stay and not sure how that will work out. Mentions his in [place] and his sister who lived in [place]. Denies feeling depressed. No medication concerns. Sleep okay. Medication Compliance: Yes Side effects from medications: No Attending Groups: Intermittent Review of Systems Acute medical concerns: No Review of Systems Review of Systems Nothing acute Mental Status Exam Mental Status Exam Narrative: pleasant. Engaged. Fairly presented. [place] flat affect. No SI. No HI. No agitation or psychosis. Insight and judgment does appear limited Diagnostics Vital Signs (24Hr): Vital Signs - 24 hr 04/06/22 18:00 04/07/22 08:59 Temperature 97.9 F 98.1 F Pulse Rate 94 122 H Respiratory Rate 16 16 Blood Pressure 128/66 132/64 Pulse Oximetry 98 97 Oxygen Delivery Method Room Air Room Air BMI result Body Mass Index 26.8 Labs 03/12/22 21:36 03/14/22 08:37 Imaging Radiology Impressions: ITS Impressions Head CT 03/12/22 20:45 IMPRESSION: 1. No acute intracranial pathology. Brain MRI 03/29/22 13:15 IMPRESSION: 1. No demonstrated acute intracranial abnormalities. No abnormal intracranial enhancement. 2. Mild to moderate nonspecific white matter changes most commonly seen with underlying microangiopathy. Mild generalized cerebral volume loss. Medications Medications Current Medications Acetaminophen (Acetaminophen 325 Mg Tablet) 650 mg PO Q6H PRN PRN Reason: Headache/Pain Mild Scale (1-3) Al Hydroxide/Mg Hydroxide (Magnesium Hydrox/Alum Hydrox 30 Ml Oral.Susp) 30 ml PO Q6H PRN PRN Reason: Heartburn/Nausea Levothyroxine Sodium (Levothyroxine Sodium 200 Mcg Tablet) 200 mcg PO DAILY@0630 [facility] Last Admin: 04/07/22 06:26 Dose: 200 mcg Magnesium Hydroxide (Milk Of Magnesia 30 Ml Oral.Susp) 30 ml PO DAILY PRN PRN Reason: Constipation Risperidone (Risperidone 3 Mg Tablet) 6 mg PO BEDTIME [facility] Last Admin: 04/06/22 19:55 Dose: 6 mg Trazodone HCl (Trazodone Hcl 50 Mg Tablet) 50 mg PO BEDTIME PRN PRN Reason: Insomnia Allergies Allergies Allergy/AdvReac Type Severity Reaction Status Date / Time amoxicillin [AMOXICILLIN] Allergy Unknown VOMITING/ABD Unverified 11/19/19 19:25 PAIN Assessment & Plan Assessment & Plan (1) Cognitive and behavioral changes: Status: Acute Code(s): R41.89 - Other symptoms and signs involving cognitive functions and awareness; R46.89 - Other symptoms and signs involving appearance and behavior (2) Delusional disorder: Status: Acute Code(s): F22 - Delusional disorders (3) Hypothyroidism: Status: Acute Code(s): E03.9 - Hypothyroidism, unspecified Plan HPI: Patient is a 57-year-old male on a 12b with a history of hypothyroid disorder/thyroid coma, stroke and brain aneurysm who presents to the emergency room reportedly after his friends to come to a clinic, concern for his memory impairment, delusional thinking (about people being imposters), not taking medications and poor ADLs. Patient is a poor historian and collateral as necessary to further assess. -He has history of stroke and other comorbidities that could influence cognition. Collateral is necessary to figure out the timelines of his memory impairment and whether it has worsened. Also, will need history from Neurology to see what imaging has been done -patient does have some paranoid delusional thoughts; he is vague about them. He does look moderately disheveled however he does not appear overtly disorganized at this time -significantly elevated TSH; he does say he takes his thyroid medication daily but will need collateral -although he says he scared about his memory impairment, he denies all other psychiatric symptoms. -will consult with endocrinology regarding elevated TSH Hospital course: 03/15 Collateral helpful and reveals that he is having psychotic symptoms and is confused, possibly in the face of going off psychiatric medications; sister will try to get a hold of recent medication list; typewriter assembly and parts inspector did try to call patient's PCP Dr. Hatfield but was unable to connect (ANNETTE Signed). Hypothyroidism due to noncompliance with medication. Memory loss present since stroke 03/16 will start Risperdal 03/17 patient says tired from Risperdal in the morning so will switch to bedtime; remains with paranoid delusions; memory impairment. Very little insight Discussed case with team; discussed with nursing; reviewed vitals and WNL 03/18 no change in presentation; not open to further med changes. Patient used to be on Depakote but does not want to take it and refuses it Will need to discuss further with team. Patient seems to have memory impairment/cognitive dysfunction present since his stroke 2 years ago, Which according to collateral has not necessarily worsened. Patient also has some has paranoid delusional thinking. Seems to be a combination of both cognitive dysfunction and delusional thinking that brings him back to his house and violating restraining order. Patient is not currently under the care of a neurologist; typewriter assembly and parts inspector discussed this with him any agrees to go, however his sister says he typically has no interest in doctor's appointments or medication. Patient lives at his sister's who cares for his needs; he has no history of violence or aggression towards anyone and is without any SI or HI. 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 Although patient is not in imminent risk for harm to himself or others, he risks getting arrested in prosecuted for violating restraining order. Need to talk with patient's ; will discuss further with team. -Discussed case with nursing; reviewed vitals and WNL 03/19 patient remains with paranoid delusions and without insight; he plans to continue going back to the house since in his mind, it is his house. Disorganized behavior in that he will stand [address] for long periods of time not engaging with others. Says he feels a little tired from the Risperdal but continues to take it. He says he will likely not take it once discharged. 03/20 patient remains without insight and has paranoid delusions. Now having received collateral from his estranged Romina, it is more clear that patient's behaviors in the community are threatening. Romina is now scared of him. He has tried to break into his 1/estranged 's house, has violated and no trespass order multiple times and has been subsequently arrested; the week prior to this admission, a Restraining order was enacted following a text patient sent to Romina which said she is not going to make it out alive. Patient than violated this restraining order. Patient has very little to no insight regarding his behaviors. Patient intends to continue going back to the house since he thinks it is his house and has paranoid, delusional concerns about his . Patient says he will not take medication once he leaves. At this time, patient is not safe for discharge. 03/21 no change; neuro consult pending Grainger 03/22 refused MRI since paranoid 03/26 no change in presentation 03/28 some improvement; for the first time he clearly articulates knowledge of the restraining order, the rules he must obey and the consequence of violating it. He says he will abide by it and that he has no choice. Pt thinks maybe his will let him come back to the house, but is open to the idea that he may be wrong. -consents to MRI he says he'll have to abide by the restraining order. Aitchbone Breaker inquires further, asking if pt will desist from going to the house. Pt corrects typewriter assembly and parts inspector and says he's mandated to stay 50 feet away, which is written right on the order which I have in my jacket pocket. He says he will abide it and i have to...i have no choice...I don't want to go to assisted. Of note, this is first time patient has clearly stated that he will abide by the restraining order and himself articulated that rules regarding restraining order. Hopefully this guido increased insight possibly due to Risperdal which would be encouraging if there is a treatment that can help patient be more safe in the community. 03/29 went for MRI 03/30 perhaps a little less confused, but difficult to tell. still w/ paranoid, delusional thinking. Agreed to Invega IM but then refused 03/31: continue current tx plan. Attempt to encourage him to take invega sustenna and check TSH/T4 04/01: Continue tx plan. Check thyroid studies. 04/02 no change; continues to say he will respect the restraining order. Will order repeat TSH 04/03 repeat TSH is grossly within normal limits and free T4 within normal limits ruling out hypothyroidism as a contributing factor to patient's confusion. 04/04 family meeting; remains difficult to assess what pt understands about his illness. Aitchbone Breaker shared how his worries of imposters are delusions but he is ambivalent 2/2 planned zoom meeting w/ estranged but unable to get ahold of her; increase risperdal to 6mg to see if can help with persistent delusions 2/4 continue current tx plan FORMULATION/IMPRESSION: Patient is a 57-year-old male with no psychiatric history prior to 2020. 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 Over the past 6-8 months, patient's memory and cognitive function has significantly worsened; patient has developed paranoid delusions and is without insight. Due to a combination of paranoid delusional thinking and cognitive impairment, Patient has been increasingly harassing his estranged . The harassment has worsened and over the past few weeks and patient's estranged is now afraid: he has tried to break into her house, violated a no trespass order, sent a cryptic, threatening text message and has violated a restraining order. Patient does not seem to have any insight that his behaviors are harassing or frightening or that he is operating from paranoid delusions. It seems likely there is some relationship between between patient's paranoid delusions, his cognitive decline and history of either aneurysm/stroke/coma, given the clear timeline. Patient needs further workup with help from Neurology to better assess. At this time patient remains unsafe to be in the community and requires inpatient level of care for treatment and containment for safety and medication management. Plan CV Q 15 minute checks 1. Psychotic symptoms/delusions 2/2 to medical illness (aneurysm/stroke...) vs organic etiology refuses iNVEGA Sustenna 234mg IM Increase to Risperdal 6 mg q.h.s. Neurology consult MRI ordered but pt refused to consent Grainger Concern that patient may need a guardian -Records pending: need more detailed history of aneurysm/stroke/coma as reports are all from non clinicians and without pertinent details -some history of prescribed psychotropic medications: mirtazapine 15 mg, Depakote ER 750 mg -symptoms seem to be worsening over the past 5 months (it now seems less likely that patient was adherent with medications) 2. Cognitive disorder s/p stroke, brain aneurysm, myxedema coma? All in 2020: Reportedly present since stroke in 2020 -neurology consult -MRI ordered; consent signed 3. Hypothyroid: resolved on levo labs on 04/03 TSH grossly WNL Free T4 WNL Continue levothyroxine 200mcg daily at 06:30 [address] fire [address] chief Dr. 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 He says he does not want and it is to be discontinued. He denies any history of actually having a seizure but says this was started s/p thyroid coma as a prophylactic measure to prevent seizure Aitchbone Breaker talked with Romina, patient's estranged (ANNETTE signed): Romina reports that up until around 2020 when he had his coma and mini strokes, patient was is regular self without any overt psychiatric symptoms; only on typewriter assembly and parts inspector's further inquiry did she say there was maybe some intermittent, minimal/mild paranoia. 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 She says afterwards he had some rehab and some memory impairment but nowhere near as significant as it is now. She says over the next 6 months his memory problems worsened. At some point they and he went to live with his sister. She says that for the past 8 months his memory has continued to deteriorate. For the past year he has been calling her around 50 or 60 times a day and would send constant text messages all day long. Would frequently show up at her house (she reports the house is fully hers, in her name). She continues to care about him and hope that he would eventually stop coming over as she continually explained that their relationship was over. Once, she let him into the house to see his nephew but then he would not leave an she said it took enormous effort to get him out the door. Since then she has not let him in the house. Despite this, he kept coming over to the house daily, knocking for hours at a time. She knew patient was struggling and did not want him to add to his troubles and so hesitated to call the police. However patient continued to come over and then actually started trying to get into the house, once using a credit card. He would call her daughter and say he standing outside the house. Patient would also stand for hours and front of the house. Romina started to get scared. He tried to get into the house about 3 weeks ago, she call the police who issued a no trespassing order. He violated the order, was arrested and taken to [facility] assisted for couple days; immediately on release he would back to the house and got arrested again. Released again, he went over to the house and stood outside of it. Last week, just before this admission, send a text message to Romina that said she is not going to make it out alive. After this the mrp controller put a restraining order on patient. He continued to violated, stating outside her house for hours; he left his sister's house and stayed at a friend's house near [place] and for hours and hours, in the rain, in the snow would new client banking services clerk front of her house, only going to his friend's house to sleep for a few hours and then to repeat the next day. Romina says this is what resulted in this admission. She says he accuses her of being an imposter on the phone; after interacting with the police he'll say they are not real manager psychiatry, they are scammers... She reiterates that he is getting scary and that she is now scared of him. She is relieved to know that is in the hospital in hopes he can get help. Regarding history of psychiatric admissions, Romina says that patient was admitted to a psychiatric hospital at least 2 times following suicide attempts, which also occurred soon after his aneurysm/stroke/coma. She says the the 1st attempt (not necessarily resulting in admission) was an intentional overdose from a bottle of pills. Second attempt was attempt to hang himself. Third attempt patient tried to cut his neck with a circular saw. Patient was admitted; required stitches only Of note, 's reporting corroborates with both patient's sister and with patient's own account Reason for contiued inpatient stay Substantial Risk for: inability to function Time Spent With Patient Time: Total time managing care of this patient today ____ minutes.
[2022-04-07 18:00] VITALS: BP 124/69; PULSE 84; RESP 14; TEMP 37
[2022-04-07] MEDS: risperiDONE 3 MG TABLET 6 MG PO (21:05)
[2022-04-08] MEDS: Levothyroxine Sodium 200 MCG TABLET PO (06:47)
[2022-04-08 08:54] VITALS: BP 130/70; PULSE 99; RESP 16; TEMP 36.2; O2SAT 99
--- NOTE | 2022-04-08 12:35 | P.PNPSI_ITS ---
Subjective Subjective Date of Service: 04/08/22 Reason For Visit: capgrass delusions Interim History: met with patient and discussed with Nursing. Noted complex neurological history. Overall today reports no immediate concerns. Reports feeling safe. Continue to discuss needing a place to stay and unsure how things will work out. Reports speaking with his mom who lives in [place]. Mom reported that his sister who also lives in [place] is on vacation in [place] and therefore he is unable to speak with her. Reported restraining order with his makes things complicated. Reported this was a place due to violating a no trespass order and then sending text messages. Otherwise denies feeling depressed. No medication concerns. Sleep okay. Medication Compliance: Yes Side effects from medications: No Attending Groups: Intermittent Review of Systems Acute medical concerns: No Review of Systems Review of Systems Nothing acute Mental Status Exam Mental Status Exam Narrative: pleasant. Engaged. Fairly presented. [place] flat affect. No SI. No HI. No agitation or psychosis. Insight and judgment does appear limited Diagnostics Vital Signs (24Hr): Vital Signs - 24 hr 04/07/22 18:00 04/08/22 08:54 Temperature 98.6 F 97.2 F Pulse Rate 84 99 Respiratory Rate 14 16 Blood Pressure 124/69 130/70 Pulse Oximetry 99 BMI result Body Mass Index 26.8 Labs 03/12/22 21:36 03/14/22 08:37 Imaging Radiology Impressions: ITS Impressions Head CT 03/12/22 20:45 IMPRESSION: 1. No acute intracranial pathology. Brain MRI 03/29/22 13:15 IMPRESSION: 1. No demonstrated acute intracranial abnormalities. No abnormal intracranial enhancement. 2. Mild to moderate nonspecific white matter changes most commonly seen with underlying microangiopathy. Mild generalized cerebral volume loss. Medications Medications Current Medications Acetaminophen (Acetaminophen 325 Mg Tablet) 650 mg PO Q6H PRN PRN Reason: Headache/Pain Mild Scale (1-3) Al Hydroxide/Mg Hydroxide (Magnesium Hydrox/Alum Hydrox 30 Ml Oral.Susp) 30 ml PO Q6H PRN PRN Reason: Heartburn/Nausea Levothyroxine Sodium (Levothyroxine Sodium 200 Mcg Tablet) 200 mcg PO DAILY@0630 MANAS Last Admin: 04/08/22 06:47 Dose: 200 mcg Magnesium Hydroxide (Milk Of Magnesia 30 Ml Oral.Susp) 30 ml PO DAILY PRN PRN Reason: Constipation Risperidone (Risperidone 3 Mg Tablet) 6 mg PO BEDTIME [facility] Last Admin: 04/07/22 21:05 Dose: 6 mg Trazodone HCl (Trazodone Hcl 50 Mg Tablet) 50 mg PO BEDTIME PRN PRN Reason: Insomnia Allergies Allergies Allergy/AdvReac Type Severity Reaction Status Date / Time amoxicillin [AMOXICILLIN] Allergy Mild VOMITING/ABD Verified 04/07/22 22:10 PAIN Assessment & Plan Assessment & Plan (1) Cognitive and behavioral changes: Status: Acute Code(s): R41.89 - Other symptoms and signs involving cognitive functions and awareness; R46.89 - Other symptoms and signs involving appearance and behavior (2) Delusional disorder: Status: Acute Code(s): F22 - Delusional disorders (3) Hypothyroidism: Status: Acute Code(s): E03.9 - Hypothyroidism, unspecified Plan HPI: Patient is a 57-year-old male on a 12b with a history of hypothyroid disorder/thyroid coma, stroke and brain aneurysm who presents to the emergency room reportedly after his friends to come to a clinic, concern for his memory impairment, delusional thinking (about people being imposters), not taking medications and poor ADLs. Patient is a poor historian and collateral as necessary to further assess. -He has history of stroke and other comorbidities that could influence cognition. Collateral is necessary to figure out the timelines of his memory impairment and whether it has worsened. Also, will need history from Neurology to see what imaging has been done -patient does have some paranoid delusional thoughts; he is vague about them. He does look moderately disheveled however he does not appear overtly disorganized at this time -significantly elevated TSH; he does say he takes his thyroid medication daily but will need collateral -although he says he scared about his memory impairment, he denies all other psychiatric symptoms. -will consult with endocrinology regarding elevated TSH Hospital course: 03/15 Collateral helpful and reveals that he is having psychotic symptoms and is confused, possibly in the face of going off psychiatric medications; sister will try to get a hold of recent medication list; commercial insurance underwriter did try to call patient's PCP Dr. Hatfield but was unable to connect (ANNETTE Signed). Hypothyroidism due to noncompliance with medication. Memory loss present since stroke 03/16 will start Risperdal 03/17 patient says tired from Risperdal in the morning so will switch to bedtime; remains with paranoid delusions; memory impairment. Very little insight Discussed case with team; discussed with nursing; reviewed vitals and WNL 03/18 no change in presentation; not open to further med changes. Patient used to be on Depakote but does not want to take it and refuses it Will need to discuss further with team. Patient seems to have memory impairment/cognitive dysfunction present since his stroke 2 years ago, Which according to collateral has not necessarily worsened. Patient also has some has paranoid delusional thinking. Seems to be a combination of both cognitive dysfunction and delusional thinking that brings him back to his house and violating restraining order. Patient is not currently under the care of a neurologist; commercial insurance underwriter discussed this with him any agrees to go, however his sister says he typically has no interest in doctor's appointments or medication. Patient lives at his sister's who cares for his needs; he has no history of violence or aggression towards anyone and is without any SI or HI. 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 Although patient is not in imminent risk for harm to himself or others, he risks getting arrested in prosecuted for violating restraining order. Need to talk with patient's ; will discuss further with team. -Discussed case with nursing; reviewed vitals and WNL 03/19 patient remains with paranoid delusions and without insight; he plans to continue going back to the house since in his mind, it is his house. Disorganized behavior in that he will stand [address] for long periods of time not engaging with others. Says he feels a little tired from the Risperdal but continues to take it. He says he will likely not take it once discharged. 03/20 patient remains without insight and has paranoid delusions. Now having received collateral from his estranged Romina, it is more clear that patient's behaviors in the community are threatening. Romina is now scared of him. He has tried to break into his 1/estranged 's house, has violated and no trespass order multiple times and has been subsequently arrested; the week prior to this admission, a Restraining order was enacted following a text patient sent to Romina which said she is not going to make it out alive. Patient than violated this restraining order. Patient has very little to no insight regarding his behaviors. Patient intends to continue going back to the house since he thinks it is his house and has paranoid, delusional concerns about his . Patient says he will not take medication once he leaves. At this time, patient is not safe for discharge. 03/21 no change; neuro consult pending [place] 03/22 refused MRI since paranoid 03/26 no change in presentation 03/28 some improvement; for the first time he clearly articulates knowledge of the restraining order, the rules he must obey and the consequence of violating it. He says he will abide by it and that he has no choice. Pt thinks maybe his will let him come back to the house, but is open to the idea that he may be wrong. -consents to MRI he says he'll have to abide by the restraining order. Negative Developer inquires further, asking if pt will desist from going to the house. Pt corrects commercial insurance underwriter and says he's mandated to stay 50 feet away, which is written right on the order which I have in my jacket pocket. He says he will abide it and i have to...i have no choice...I don't want to go to prison. Of note, this is first time patient has clearly stated that he will abide by the restraining order and himself articulated that rules regarding restraining order. Hopefully this guido increased insight possibly due to Risperdal which would be encouraging if there is a treatment that can help patient be more safe in the community. 03/29 went for MRI 03/30 perhaps a little less confused, but difficult to tell. still w/ paranoid, delusional thinking. Agreed to Invega IM but then refused 03/31: continue current tx plan. Attempt to encourage him to take invega sustenna and check TSH/T4 04/01: Continue tx plan. Check thyroid studies. 04/02 no change; continues to say he will respect the restraining order. Will order repeat TSH 04/03 repeat TSH is grossly within normal limits and free T4 within normal limits ruling out hypothyroidism as a contributing factor to patient's confusion. 2/1 family meeting; remains difficult to assess what pt understands about his illness. Negative Developer shared how his worries of imposters are delusions but he is ambivalent 2/2 planned zoom meeting w/ estranged but unable to get ahold of her; incre ase risperdal to 6mg to see if can help with persistent delusions 2/5 continue current tx plan FORMULATION/IMPRESSION: Patient is a 57-year-old male with no psychiatric history prior to 2020. 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 Over the past 6-8 months, patient's memory and cognitive function has significantly worsened; patient has developed paranoid delusions and is without insight. Due to a combination of paranoid delusional thinking and cognitive impairment, Patient has been increasingly harassing his estranged . The harassment has worsened and over the past few weeks and patient's estranged is now afraid: he has tried to break into her house, violated a no trespass order, sent a cryptic, threatening text message and has violated a restraining order. Patient does not seem to have any insight that his behaviors are harassing or frightening or that he is operating from paranoid delusions. It seems likely there is some relationship between between patient's paranoid delusions, his cognitive decline and history of either aneurysm/stroke/coma, given the clear timeline. Patient needs further workup with help from Neurology to better assess. At this time patient remains unsafe to be in the community and requires inpatient level of care for treatment and containment for safety and medication management. Plan CV Q 15 minute checks 1. Psychotic symptoms/delusions 2/2 to medical illness (aneurysm/stroke...) vs organic etiology refuses iNVEGA Sustenna 234mg IM Increase to Risperdal 6 mg q.h.s. Neurology consult MRI ordered but pt refused to consent [place] Concern that patient may need a guardian -Records pending: need more detailed history of aneurysm/stroke/coma as reports are all from non clinicians and without pertinent details -some history of prescribed psychotropic medications: mirtazapine 15 mg, Depakote ER 750 mg -symptoms seem to be worsening over the past 5 months (it now seems less likely that patient was adherent with medications) 2. Cognitive disorder s/p stroke, brain aneurysm, myxedema coma? All in 2020: Reportedly present since stroke in 2020 -neurology consult -MRI ordered; consent signed 3. 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 He says he does not want and it is to be discontinued. He denies any history of actually having a seizure but says this was started s/p thyroid coma as a prophylactic measure to prevent seizure Negative Developer talked with Romina, patient's estranged (ANNETTE signed): Romina reports that up until around 2020 when he had his coma and mini strokes, patient was is regular self without any overt psychiatric symptoms; only on commercial insurance underwriter's further inquiry did she say there was maybe some intermittent, minimal/mild paranoia. 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 She says afterwards he had some rehab and some memory impairment but nowhere near as significant as it is now. She says over the next 6 months his memory problems worsened. At some point they and he went to live with his sister. She says that for the past 8 months his memory has continued to deteriorate. For the past year he has been calling her around 50 or 60 times a day and would send constant text messages all day long. Would frequently show up at her house (she reports the house is fully hers, in her name). She continues to care about him and hope that he would eventually stop coming over as she continually explained that their relationship was over. Once, she let him into the house to see his nephew but then he would not leave an she said it took enormous effort to get him out the door. Since then she has not let him in the house. Despite this, he kept coming over to the house daily, knocking for hours at a time. She knew patient was struggling and did not want him to add to his troubles and so hesitated to call the police. However patient continued to come over and then actually started trying to get into the house, once using a credit card. He would call her daughter and say he standing outside the house. Patient would also stand for hours and front of the house. Romina started to get scared. He tried to get into the house about 3 weeks ago, she call the police who issued a no trespassing order. He violated the order, was arrested and taken to [facility] for couple days; immediately on release he would back to the house and got arrested again. Released again, he went over to the house and stood outside of it. Last week, just before this admission, send a text message to Romina that said she is not going to make it out alive. After this the cold mill supervisor put a restraining order on patient. He continued to violated, stating outside her house for hours; he left his sister's house and stayed at a friend's house near Romina and for hours and hours, in the rain, in the snow would habilitative interventionist front of her house, only going to his friend's house to sleep for a few hours and then to repeat the next day. Romina says this is what resulted in this admission. She says he accuses her of being an imposter on the phone; after interacting with the police he'll say they are not real marshmallow machine worker, they are scammers... She reiterates that he is getting scary and that she is now scared of him. She is relieved to know that is in the hospital in hopes he can get help. Regarding history of psychiatric admissions, Romina says that patient was admitted to a psychiatric hospital at least 2 times following suicide attempts, which also occurred soon after his aneurysm/stroke/coma. She says the the 1st attempt (not necessarily resulting in admission) was an intentional overdose from a bottle of pills. Second attempt was attempt to hang himself. Third attempt patient tried to cut his neck with a circular saw. Patient was admitted; required stitches only Of note, 's reporting corroborates with both patient's sister and with patient's own account Reason for contiued inpatient stay Substantial Risk for: inability to function Time Spent With Patient Time: Total time managing care of this patient today ____ minutes.
[2022-04-08 17:08] VITALS: BP 104/63; PULSE 86; RESP 14; TEMP 37.1; O2SAT 98
[2022-04-08] MEDS: risperiDONE 3 MG TABLET 6 MG PO (22:16)
[2022-04-09] MEDS: Levothyroxine Sodium 200 MCG TABLET PO (06:43)
[2022-04-09 08:00] VITALS: BP 117/73; PULSE 96; RESP 18; TEMP 36.7; O2SAT 96
--- NOTE | 2022-04-09 10:06 | HO.PSYCHPN ---
Subjective Subjective Date of Service: 04/09/22 Reason For Visit: capgrass delusions Interim History: Met with patient; discussed in team; reviewed weekend notes written by covering provider/staff (and no change in presentation over weekend); Patient remains with paranoid delusions that the people he talked to his phone, his mother and his sister maybe imposters. He says it does not seem like them when he is talking to them. Facility Maintenance Worker nino get approaches the topic of patient's mind playing tricks on him and a delusion about which he says could be... I do not know. He did however agree to medication change to Zyprexa or other database report writer thinks appropriate. Regarding breaking the restraining order and going to his 's house he says I just got to go there. Mental Status Exam Mental Status Exam Narrative: Pt is alert and oriented; behavior is cooperative, friendly enough on approach and calm, but also disorganized, often standing in one place in hallway for extended periods of time; patient is not in distress; dressed in casual attire, clean cloths, adequate hygiene; mood is described as ok affect blunted; eye contact appropriate; Speech is normal rate, volume and prosody and not pressured; some psychomotor retardation present; thought process is goal directed but concrete; Thought content is on paranoid delusions; some anxiety over memory impairment; he is able to be pertinent to relevant topics when asked; denies any SI/HI. Does not seem internally preoccupied; and he denies AVH. Memory impairment significant Patients insight and judgment impaired. Diagnostics Vital Signs (24Hr): Vital Signs - 24 hr 04/08/22 17:08 04/09/22 08:00 Temperature 98.7 F 98.1 F Pulse Rate 86 96 Respiratory Rate 14 18 Blood Pressure 104/63 117/73 Pulse Oximetry 98 96 Oxygen Delivery Method Room Air Room Air BMI result Body Mass Index 26.8 Labs 03/12/22 21:36 03/14/22 08:37 Imaging Radiology Impressions: ITS Impressions Head CT 03/12/22 20:45 IMPRESSION: 1. No acute intracranial pathology. Brain MRI 03/29/22 13:15 IMPRESSION: 1. No demonstrated acute intracranial abnormalities. No abnormal intracranial enhancement. 2. Mild to moderate nonspecific white matter changes most commonly seen with underlying microangiopathy. Mild generalized cerebral volume loss. Medications Medications Current Medications Acetaminophen (Acetaminophen 325 Mg Tablet) 650 mg PO Q6H PRN PRN Reason: Headache/Pain Mild Scale (1-3) Al Hydroxide/Mg Hydroxide (Magnesium Hydrox/Alum Hydrox 30 Ml Oral.Susp) 30 ml PO Q6H PRN PRN Reason: Heartburn/Nausea Levothyroxine Sodium (Levothyroxine Sodium 200 Mcg Tablet) 200 mcg PO DAILY@0630 [facility] Last Admin: 04/09/22 06:43 Dose: 200 mcg Magnesium Hydroxide (Milk Of Magnesia 30 Ml Oral.Susp) 30 ml PO DAILY PRN PRN Reason: Constipation Risperidone (Risperidone 3 Mg Tablet) 6 mg PO BEDTIME [facility] Last Admin: 04/08/22 22:16 Dose: 6 mg Trazodone HCl (Trazodone Hcl 50 Mg Tablet) 50 mg PO BEDTIME PRN PRN Reason: Insomnia Allergies Allergies Allergy/AdvReac Type Severity Reaction Status Date / Time amoxicillin [AMOXICILLIN] Allergy Mild VOMITING/ABD Verified 04/07/22 22:10 PAIN Assessment & Plan Assessment & Plan (1) Cognitive and behavioral changes: Status: Acute Code(s): R41.89 - Other symptoms and signs involving cognitive functions and awareness; R46.89 - Other symptoms and signs involving appearance and behavior (2) Delusional disorder: Status: Acute Code(s): F22 - Delusional disorders (3) Hypothyroidism: Status: Acute Code(s): E03.9 - Hypothyroidism, unspecified Plan HPI: Patient is a 57-year-old male on a 12b with a history of hypothyroid disorder/thyroid coma, stroke and brain aneurysm who presents to the emergency room reportedly after his friends to come to a clinic, concern for his memory impairment, delusional thinking (about people being imposters), not taking medications and poor ADLs. Patient is a poor historian and collateral as necessary to further assess. -He has history of stroke and other comorbidities that could influence cognition. Collateral is necessary to figure out the timelines of his memory impairment and whether it has worsened. Also, will need history from Neurology to see what imaging has been done -patient does have some paranoid delusional thoughts; he is vague about them. He does look moderately disheveled however he does not appear overtly disorganized at this time -significantly elevated TSH; he does say he takes his thyroid medication daily but will need collateral -although he says he scared about his memory impairment, he denies all other psychiatric symptoms. -will consult with endocrinology regarding elevated TSH Hospital course: 03/15 Collateral helpful and reveals that he is having psychotic symptoms and is confused, possibly in the face of going off psychiatric medications; sister will try to get a hold of recent medication list; database report writer did try to call patient's PCP Dr. Hatfield but was unable to connect (ANNETTE Signed). Hypothyroidism due to noncompliance with medication. Memory loss present since stroke 03/16 will start Risperdal 03/17 patient says tired from Risperdal in the morning so will switch to bedtime; remains with paranoid delusions; memory impairment. Very little insight Discussed case with team; discussed with nursing; reviewed vitals and WNL 03/18 no change in presentation; not open to further med changes. Patient used to be on Depakote but does not want to take it and refuses it Will need to discuss further with team. Patient seems to have memory impairment/cognitive dysfunction present since his stroke 2 years ago, Which according to collateral has not necessarily worsened. Patient also has some has paranoid delusional thinking. Seems to be a combination of both cognitive dysfunction and delusional thinking that brings him back to his house and violating restraining order. Patient is not currently under the care of a neurologist; database report writer discussed this with him any agrees to go, however his sister says he typically has no interest in doctor's appointments or medication. Patient lives at his sister's who cares for his needs; he has no history of violence or aggression towards anyone and is without any SI or HI. 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 Although patient is not in imminent risk for harm to himself or others, he risks getting arrested in prosecuted for violating restraining order. Need to talk with patient's ; will discuss further with team. -Discussed case with nursing; reviewed vitals and WNL 03/19 patient remains with paranoid delusions and without insight; he plans to continue going back to the house since in his mind, it is his house. Disorganized behavior in that he will stand [address] for long periods of time not engaging with others. Says he feels a little tired from the Risperdal but continues to take it. He says he will likely not take it once discharged. 03/20 patient remains without insight and has paranoid delusions. Now having received collateral from his estranged Romina, it is more clear that patient's behaviors in the community are threatening. Romina is now scared of him. He has tried to break into his 1/estranged 's house, has violated and no trespass order multiple times and has been subsequently arrested; the week prior to this admission, a Restraining order was enacted following a text patient sent to Romina which said she is not going to make it out alive. Patient than violated this restraining order. Patient has very little to no insight regarding his behaviors. Patient intends to continue going back to the house since he thinks it is his house and has paranoid, delusional concerns about his . Patient says he will not take medication once he leaves. At this time, patient is not safe for discharge. 03/21 no change; neuro consult pending [place] 03/22 refused MRI since paranoid 03/26 no change in presentation 03/28 some improvement; for the first time he clearly articulates knowledge of the restraining order, the rules he must obey and the consequence of violating it. He says he will abide by it and that he has no choice. Pt thinks maybe his will let him come back to the house, but is open to the idea that he may be wrong. -consents to MRI he says he'll have to abide by the restraining order. Facility Maintenance Worker inquires further, asking if pt will desist from going to the house. Pt corrects database report writer and says he's mandated to stay 50 feet away, which is written right on the order which I have in my jacket pocket. He says he will abide it and i have to...i have no choice...I don't want to go to nursing home. Of note, this is first time patient has clearly stated that he will abide by the restraining order and himself articulated that rules regarding restraining order. Hopefully this guido increased insight possibly due to Risperdal which would be encouraging if there is a treatment that can help patient be more safe in the community. 03/29 went for MRI 03/30 perhaps a little less confused, but difficult to tell. still w/ paranoid, delusional thinking. Agreed to Invega IM but then refused 03/31: continue current tx plan. Attempt to encourage him to take invega sustenna and check TSH/T4 04/01: Continue tx plan. Check thyroid studies. 04/02 no change; continues to say he will respect the restraining order. Will order repeat TSH 04/03 repeat TSH is grossly within normal limits and free T4 within normal limits ruling out hypothyroidism as a contributing factor to patient's confusion. 04/04 family meeting; remains difficult to assess what pt understands about his illness. Facility Maintenance Worker shared how his worries of imposters are delusions but he is ambivalent 04/05 planned zoom meeting w/ estranged but unable to get ahold of her; increase risperdal to 6mg to see if can help with persistent delusions 04/08 continue current tx plan 04/09 patient does not seem to have improved much with Risperdal even at 6 mg; he agrees to medication change; will consider changing to Zyprexa FORMULATION/IMPRESSION: Patient is a 57-year-old male with no psychiatric history prior to 2020. 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 Over the past 6-8 months, patient's memory and cognitive function has significantly worsened; patient has developed paranoid delusions and is without insight. Due to a combination of paranoid delusional thinking and cognitive impairment, Patient has been increasingly harassing his estranged . The harassment has worsened and over the past few weeks and patient's estranged is now afraid: he has tried to break into her house, violated a no trespass order, sent a cryptic, threatening text message and has violated a restraining order. Patient does not seem to have any insight that his behaviors are harassing or frightening or that he is operating from paranoid delusions. It seems likely there is some relationship between between patient's paranoid delusions, his cognitive decline and history of either aneurysm/stroke/coma, given the clear timeline. Patient needs further workup with help from Neurology to better assess. At this time patient remains unsafe to be in the community and requires inpatient level of care for treatment and containment for safety and medication management. Plan CV Q 15 minute checks 1. Psychotic symptoms/delusions 2/2 to medical illness (aneurysm/stroke...) vs organic etiology refuses iNVEGA Sustenna 234mg IM Increase to Risperdal 6 mg q.h.s. Neurology consult MRI ordered but pt refused to consent [place] Concern that patient may need a guardian -Records pending: need more detailed history of aneurysm/stroke/coma as reports are all from non clinicians and without pertinent details -some history of prescribed psychotropic medications: mirtazapine 15 mg, Depakote ER 750 mg -symptoms seem to be worsening over the past 5 months (it now seems less likely that patient was adherent with medications) 2. Cognitive disorder s/p stroke, brain aneurysm, myxedema coma? All in 2020: Reportedly present since stroke in 2020 -neurology consult -MRI ordered; consent signed 3. Hypothyroid: resolved on levo labs on 04/03 TSH grossly WNL Free T4 WNL Continue levothyroxine 200mcg daily at 06:[address] 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 He says he does not want and it is to be discontinued. He denies any history of actually having a seizure but says this was started s/p thyroid coma as a prophylactic measure to prevent seizure Facility Maintenance Worker talked with Romina, patient's estranged (ANNETTE signed): Romina reports that up until around 2020 when he had his coma and mini strokes, patient was is regular self without any overt psychiatric symptoms; only on database report writer's further inquiry did she say there was maybe some intermittent, minimal/mild paranoia. 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 She says afterwards he had some rehab and some memory impairment but nowhere near as significant as it is now. She says over the next 6 months his memory problems worsened. At some point they and he went to live with his sister. She says that for the past 8 months his memory has continued to deteriorate. For the past year he has been calling her around 50 or 60 times a day and would send constant text messages all day long. Would frequently show up at her house (she reports the house is fully hers, in her name). She continues to care about him and hope that he would eventually stop coming over as she continually explained that their relationship was over. Once, she let him into the house to see his nephew but then he would not leave an she said it took enormous effort to get him out the door. Since then she has not let him in the house. Despite this, he kept coming over to the house daily, knocking for hours at a time. She knew patient was struggling and did not want him to add to his troubles and so hesitated to call the police. However patient continued to come over and then actually started trying to get into the house, once using a credit card. He would call her daughter and say he standing outside the house. Patient would also stand for hours and front of the house. Romina started to get scared. He tried to get into the house about 3 weeks ago, she call the police who issued a no trespassing order. He violated the order, was arrested [facility]; immediately on release he would back to the house and got arrested again. Released again, he went over to the house and stood outside of it. Last week, just before this admission, send a text message to Romina that said she is not going to make it out alive. After this the district court judge put a restraining order on patient. He continued to violated, stating outside her house for hours; he left his sister's house and stayed at a friend's house near Romina's and for hours and hours, in the rain, in the snow would elementary assistant principal front of her house, only going to his friend's house to sleep for a few hours and then to repeat the next day. Romina says this is what resulted in this admission. She says he accuses her of being an imposter on the phone; after interacting with the police he'll say they are not real merry go round attendant, they are scammers... She reiterates that he is getting scary and that she is now scared of him. She is relieved to know that is in the hospital in hopes he can get help. Regarding history of psychiatric admissions, Romina says that patient was admitted to a psychiatric hospital at least 2 times following suicide attempts, which also occurred soon after his aneurysm/stroke/coma. She says the the 1st attempt (not necessarily resulting in admission) was an intentional overdose from a bottle of pills. Second attempt was attempt to hang himself. Third attempt patient tried to cut his neck with a circular saw. Patient was admitted; required stitches only Of note, 's reporting corroborates with both patient's sister and with patient's own account Patient educated on: diagnosis and medication risk/benefits Informed Consent: further education needed Reason for contiued inpatient stay Substantial Risk for: rapid decompensation Time Spent With Patient Time: Total time managing care of this patient today ____ minutes.
[2022-04-09 17:22] VITALS: BP 117/71; PULSE 80; RESP 16; TEMP 37.1; O2SAT 98
[2022-04-09] MEDS: risperiDONE 3 MG TABLET 6 MG PO (21:27)
[2022-04-10 08:35] VITALS: BP 119/68; PULSE 96; RESP 16; TEMP 36.9; O2SAT 98
[2022-04-10] MEDS: Levothyroxine Sodium 200 MCG TABLET PO (08:50)
[2022-04-10 16:50] VITALS: BP 107/66; PULSE 78; RESP 16; TEMP 36.9; O2SAT 98
--- NOTE | 2022-04-10 17:14 | P.PNPSI_ITS ---
Subjective Subjective Date of Service: 04/10/22 Reason For Visit: capgrass delusions Interim History: Met with patient; discussed in teams; discussed case and med lamberto Patient said he talked to his today and when he asked if he could come and stay with her she said do you want me to hang up again? He says that he takes this is a yes... then adds, it that was her (on the phone). Again agrees to switching medication. Mental Status Exam Mental Status Exam Narrative: Pt is alert and oriented; behavior is cooperative, friendly enough on approach and calm, but also disorganized, often standing in one place in hallway for extended periods of time; patient is not in distress; dressed in casual attire, clean cloths, adequate hygiene; mood is described as ok affect blunted; eye contact appropriate; Speech is normal rate, volume and prosody and not pressured; some psychomotor retardation present; thought process is goal directed but concrete; Thought content is on paranoid delusions; some anxiety over memory impairment; he is able to be pertinent to relevant topics when asked; denies any SI/HI. Does not seem internally preoccupied; and he denies AVH. Memory impairment significant Patients insight and judgment impaired. Diagnostics Vital Signs (24Hr): Vital Signs - 24 hr 04/09/22 17:22 04/10/22 08:35 04/10/22 16:50 Temperature 98.7 F 98.5 F 98.5 F Pulse Rate 80 96 78 Respiratory Rate 16 16 16 Blood Pressure 117/71 119/68 107/66 Pulse Oximetry 98 98 98 Oxygen Delivery Method Room Air Room Air Room Air BMI result Body Mass Index 26.8 Labs 03/12/22 21:36 03/14/22 08:37 Imaging Radiology Impressions: ITS Impressions Head CT 03/12/22 20:45 IMPRESSION: 1. No acute intracranial pathology. Brain MRI 03/29/22 13:15 IMPRESSION: 1. No demonstrated acute intracranial abnormalities. No abnormal intracranial enhancement. 2. Mild to moderate nonspecific white matter changes most commonly seen with underlying microangiopathy. Mild generalized cerebral volume loss. Medications Medications Current Medications Acetaminophen (Acetaminophen 325 Mg Tablet) 650 mg PO Q6H PRN PRN Reason: Headache/Pain Mild Scale (1-3) Al Hydroxide/Mg Hydroxide (Magnesium Hydrox/Alum Hydrox 30 Ml Oral.Susp) 30 ml PO Q6H PRN PRN Reason: Heartburn/Nausea Levothyroxine Sodium (Levothyroxine Sodium 200 Mcg Tablet) 200 mcg PO DAILY@0630 [facility] Last Admin: 04/10/22 08:50 Dose: 200 mcg Magnesium Hydroxide (Milk Of Magnesia 30 Ml Oral.Susp) 30 ml PO DAILY PRN PRN Reason: Constipation Risperidone (Risperidone 3 Mg Tablet) 6 mg PO BEDTIME [facility] Last Admin: 04/09/22 21:27 Dose: 6 mg Trazodone HCl (Trazodone Hcl 50 Mg Tablet) 50 mg PO BEDTIME PRN PRN Reason: Insomnia Allergies Allergies Allergy/AdvReac Type Severity Reaction Status Date / Time amoxicillin [AMOXICILLIN] Allergy Mild VOMITING/ABD Verified 04/07/22 22:10 PAIN Assessment & Plan Assessment & Plan (1) Cognitive and behavioral changes: Status: Acute Code(s): R41.89 - Other symptoms and signs involving cognitive functions and awareness; R46.89 - Other symptoms and signs involving appearance and behavior (2) Delusional disorder: Status: Acute Code(s): F22 - Delusional disorders (3) Hypothyroidism: Status: Acute Code(s): E03.9 - Hypothyroidism, unspecified Plan HPI: Patient is a 57-year-old male on a 12b with a history of hypothyroid disorder/thyroid coma, stroke and brain aneurysm who presents to the emergency room reportedly after his friends to come to a clinic, concern for his memory impairment, delusional thinking (about people being imposters), not taking medications and poor ADLs. Patient is a poor historian and collateral as necessary to further assess. -He has history of stroke and other comorbidities that could influence cognition. Collateral is necessary to figure out the timelines of his memory impairment and whether it has worsened. Also, will need history from Neurology to see what imaging has been done -patient does have some paranoid delusional thoughts; he is vague about them. He does look moderately disheveled however he does not appear overtly disorganized at this time -significantly elevated TSH; he does say he takes his thyroid medication daily but will need collateral -although he says he scared about his memory impairment, he denies all other psychiatric symptoms. -will consult with endocrinology regarding elevated TSH Hospital course: 03/15 Collateral helpful and reveals that he is having psychotic symptoms and is confused, possibly in the face of going off psychiatric medications; sister will try to get a hold of recent medication list; communications writer did try to call patient's PCP Dr. Hatfield but was unable to connect (ANNETTE Signed). Hypothyroidism due to noncompliance with medication. Memory loss present since stroke 03/16 will start Risperdal 03/17 patient says tired from Risperdal in the morning so will switch to bedtime; remains with paranoid delusions; memory impairment. Very little insight Discussed case with team; discussed with nursing; reviewed vitals and WNL 03/18 no change in presentation; not open to further med changes. Patient used to be on Depakote but does not want to take it and refuses it Will need to discuss further with team. Patient seems to have memory impairment/cognitive dysfunction present since his stroke 2 years ago, Which according to collateral has not necessarily worsened. Patient also has some has paranoid delusional thinking. Seems to be a combination of both cognitive dysfunction and delusional thinking that brings him back to his house and violating restraining order. Patient is not currently under the care of a neurologist; communications writer discussed this with him any agrees to go, however his sister says he typically has no interest in doctor's appointments or medication. Patient lives at his sister's who cares for his needs; he has no history of violence or aggression towards anyone and is without any SI or HI. 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 Although patient is not in imminent risk for harm to himself or others, he risks getting arrested in prosecuted for violating restraining order. Need to talk with patient's ; will discuss further with team. -Discussed case with nursing; reviewed vitals and WNL 03/19 patient remains with paranoid delusions and without insight; he plans to continue going back to the house since in his mind, it is his house. Disorganized behavior in that he will stand [address] for long periods of time not engaging with others. Says he feels a little tired from the Risperdal but co ntinues to take it. He says he will likely not take it once discharged. 03/20 patient remains without insight and has paranoid delusions. Now having received collateral from his estranged Romina, it is more clear that patient's behaviors in the community are threatening. Romina is now scared of him. He has tried to break into his 1/estranged 's house, has violated and no trespass order multiple times and has been subsequently arrested; the week prior to this admission, a Restraining order was enacted following a text patient sent to Romina which said she is not going to make it out alive. Patient than violated this restraining order. Patient has very little to no insight regarding his behaviors. Patient intends to continue going back to the house since he thinks it is his house and has paranoid, delusional concerns about his . Patient says he will not take medication once he leaves. At this time, patient is not safe for discharge. 03/21 no change; neuro consult pending [place] 03/22 refused MRI since paranoid 03/26 no change in presentation 03/28 some improvement; for the first time he clearly articulates knowledge of the restraining order, the rules he must obey and the consequence of violating it. He says he will abide by it and that he has no choice. Pt thinks maybe his will let him come back to the house, but is open to the idea that he may be wrong. -consents to MRI he says he'll have to abide by the restraining order. Orthopedic Technician inquires further, asking if pt will desist from going to the house. Pt corrects communications writer and says he's mandated to stay 50 feet away, which is written right on the order which I have in my jacket pocket. He says he will abide it and i have to...i have no choice...I don't want to go to senior care. Of note, this is first time patient has clearly stated that he will abide by the restraining order and himself articulated that rules regarding restraining order. Hopefully this guido increased insight possibly due to Risperdal which would be encouraging if there is a treatment that can help patient be more safe in the community. 03/29 went for MRI 03/30 perhaps a little less confused, but difficult to tell. still w/ paranoid, delusional thinking. Agreed to Invega IM but then refused 03/31: continue current tx plan. Attempt to encourage him to take invega sustenna and check TSH/T4 04/01: Continue tx plan. Check thyroid studies. 04/02 no change; continues to say he will respect the restraining order. Will order repeat TSH 04/03 repeat TSH is grossly within normal limits and free T4 within normal limits ruling out hypothyroidism as a contributing factor to patient's confusion. 04/04 family meeting; remains difficult to assess what pt understands about his illness. Orthopedic Technician shared how his worries of imposters are delusions but he is ambivalent 04/05 planned zoom meeting w/ estranged but unable to get ahold of her; increase risperdal to 6mg to see if can help with persistent delusions 04/08 continue current tx plan 04/09 patient does not seem to have improved much with Risperdal even at 6 mg; he agrees to medication change; will consider changing to Zyprexa 04/10 switch to Haldol; pt agrees to med switch FORMULATION/IMPRESSION: Patient is a 57-year-old male with no psychiatric history prior to 2020. 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 Over the past 6-8 months, patient's memory and cognitive function has significantly worsened; patient has developed paranoid delusions and is without insight. Due to a combination of paranoid delusional thinking and cognitive impairment, Patient has been increasingly harassing his estranged . The harassment has worsened and over the past few weeks and patient's estranged is now afraid: he has tried to break into her house, violated a no trespass order, sent a cryptic, threatening text message and has violated a restraining order. Patient does not seem to have any insight that his behaviors are harassing or frightening or that he is operating from paranoid delusions. It seems likely there is some relationship between between patient's paranoid delusions, his cognitive decline and history of either aneurysm/stroke/coma, given the clear timeline. Patient needs further workup with help from Neurology to better assess. At this time patient remains unsafe to be in the community and requires inpatient level of care for treatment and containment for safety and medication management. Plan CV Q 15 minute checks 1. Psychotic symptoms/delusions 2/2 to medical illness (aneurysm/stroke...) vs organic etiology Start Haldol 5mg Will see if EEG can be revealing DC Risperdal Neurology consult MRI [place] Concern that patient may need a guardian -Records pending: need more detailed history of aneurysm/stroke/coma as reports are all from non clinicians and without pertinent details -some history of prescribed psychotropic medications: mirtazapine 15 mg, Depakote ER 750 mg -symptoms seem to be worsening over the past 5 months (it now seems less likely that patient was adherent with medications) 2. Cognitive disorder s/p stroke, brain aneurysm, myxedema coma? All in 2020: Reportedly present since stroke in 2020 -neurology consult -MRI ordered;remarkable 3. Hypothyroid: resolved on levo labs on 04/03 TSH grossly WNL Free T4 WNL Continue levothyroxine 200mcg daily at 06:30 discussed with market development specialist Dr. 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 He says he does not want and it is to be discontinued. He denies any history of actually having a seizure but says this was started s/p thyroid coma as a prophylactic measure to prevent seizure Orthopedic Technician talked with Romina, patient's estranged (ANNETTE signed): Romina reports that up until around 2020 when he had his coma and mini strokes, patient was is regular self without any overt psychiatric symptoms; only on communications writer's further inquiry did she say there was maybe some intermittent, minimal/mild paranoia. 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 She says afterwards he had some rehab and some memory impairment but nowhere near as significant as it is now. She says over the next 6 months his memory problems worsened. At some poi nt they and he went to live with his sister. She says that for the past 8 months his memory has continued to deteriorate. For the past year he has been calling her around 50 or 60 times a day and would send constant text messages all day long. Would frequently show up at her house (she reports the house is fully hers, in her name). She continues to care about him and hope that he would eventually stop coming over as she continually explained that their relationship was over. Once, she let him into the house to see his nephew but then he would not leave an she said it took enormous effort to get him out the door. Since then she has not let him in the house. Despite this, he kept coming over to the house daily, knocking for hours at a time. She knew patient was struggling and did not want him to add to his troubles and so hesitated to call the police. However patient continued to come over and then actually started trying to get into the house, once using a credit card. He would call her daughter and say he standing outside the house. Patient would also stand for hours and front of the house. Romina started to get scared. He tried to get into the house about 3 weeks ago, she call the police who issued a no trespassing order. He violated the order, was arrested and taken to [facility] for couple days; immediately on release he would back to the house and got arrested again. Released again, he went over to the house and stood outside of it. Last week, just before this admission, send a text message to Romina that said she is not going to make it out alive. After this the bessemer converter blower put a restraining order on patient. He continued to violated, stating outside her house for hours; he left his sister's house and stayed at a friend's house near Romina's and for hours and hours, in the rain, in the snow would bilingual research interviewer front of her house, only going to his friend's house to sleep for a few hours and then to repeat the next day. Romina says this is what resulted in this admission. She says he accuses her of being an imposter on the phone; after interacting with the police he'll say they are not real sandfill operator, they are scammers... She reiterates that he is getting scary and that she is now scared of him. She is relieved to know that is in the hospital in hopes he can get help. Regarding history of psychiatric admissions, Romina says that patient was admitted to a psychiatric hospital at least 2 times following suicide attempts, which also occurred soon after his aneurysm/stroke/coma. She says the the 1st attempt (not necessarily resulting in admission) was an intentional overdose from a bottle of pills. Second attempt was attempt to hang himself. Third attempt patient tried to cut his neck with a circular saw. Patient was admitted; required stitches only Of note, 's reporting corroborates with both patient's sister and with patient's own account Patient educated on: diagnosis Informed Consent: understands and further education needed Reason for contiued inpatient stay Substantial Risk for: rapid decompensation Time Spent With Patient Time: Total time managing care of this patient today ____ minutes.
[2022-04-10] MEDS: HaloperidoL 5 MG TABLET PO (21:02)
[2022-04-11 06:00] VITALS: BP 117/74; PULSE 89; RESP 16; O2SAT 97
[2022-04-11] MEDS: Levothyroxine Sodium 200 MCG TABLET PO (08:14)
--- NOTE | 2022-04-11 16:17 | P.PNPSI_ITS ---
Subjective Subjective Date of Service: 04/11/22 Reason For Visit: capgrass delusions Interim History: met with patient; discussed in teams Tolerating Haldol; agrees to EEG. Continue to discuss situation and patient remains ambivalent about his relationship with his estranged ; however he is not accusing his sister trying to sell his house. Female staff reports that patient has a picture in his room and he thinks specific female staff gave it to him which is incorrect Mental Status Exam Mental Status Exam Narrative: Pt is alert and oriented; behavior is cooperative, friendly enough on approach and calm, but also disorganized, often standing in one place in hallway for extended periods of time; patient is not in distress; dressed in casual attire, clean cloths, adequate hygiene; mood is described as ok affect blunted; eye contact appropriate; Speech is normal rate, volume and prosody and not pressured; some psychomotor retardation present; thought process is goal directed but concrete; Thought content is on paranoid delusions; some anxiety over memory impairment; he is able to be pertinent to relevant topics when asked; denies any SI/HI. Does not seem internally preoccupied; and he denies AVH. Memory impairment significant Patients insight and judgment impaired. Diagnostics Vital Signs (24Hr): Vital Signs - 24 hr 04/10/22 16:50 04/11/22 06:00 Temperature 98.5 F Pulse Rate 78 89 Respiratory Rate 16 16 Blood Pressure 107/66 117/74 Pulse Oximetry 98 97 Oxygen Delivery Method Room Air Room Air BMI result Body Mass Index 26.8 Labs 03/12/22 21:36 03/14/22 08:37 Imaging Radiology Impressions: ITS Impressions Head CT 03/12/22 20:45 IMPRESSION: 1. No acute intracranial pathology. Brain MRI 03/29/22 13:15 IMPRESSION: 1. No demonstrated acute intracranial abnormalities. No abnormal intracranial enhancement. 2. Mild to moderate nonspecific white matter changes most commonly seen with underlying microangiopathy. Mild generalized cerebral volume loss. Medications Medications Current Medications Acetaminophen (Acetaminophen 325 Mg Tablet) 650 mg PO Q6H PRN PRN Reason: Headache/Pain Mild Scale (1-3) Al Hydroxide/Mg Hydroxide (Magnesium Hydrox/Alum Hydrox 30 Ml Oral.Susp) 30 ml PO Q6H PRN PRN Reason: Heartburn/Nausea Haloperidol (Haloperidol 5 Mg Tablet) 5 mg PO BEDTIME MANAS Last Admin: 04/10/22 21:02 Dose: 5 mg Levothyroxine Sodium (Levothyroxine Sodium 200 Mcg Tablet) 200 mcg PO DAILY@0630 MANAS Last Admin: 04/11/22 08:14 Dose: 200 mcg Magnesium Hydroxide (Milk Of Magnesia 30 Ml Oral.Susp) 30 ml PO DAILY PRN PRN Reason: Constipation Trazodone HCl (Trazodone Hcl 50 Mg Tablet) 50 mg PO BEDTIME PRN PRN Reason: Insomnia Allergies Allergies Allergy/AdvReac Type Severity Reaction Status Date / Time amoxicillin [AMOXICILLIN] Allergy Mild VOMITING/ABD Verified 04/07/22 22:10 PAIN Assessment & Plan Assessment & Plan (1) Cognitive and behavioral changes: Status: Acute Code(s): R41.89 - Other symptoms and signs involving cognitive functions and awareness; R46.89 - Other symptoms and signs involving appearance and behavior (2) Delusional disorder: Status: Acute Code(s): F22 - Delusional disorders (3) Hypothyroidism: Status: Acute Code(s): E03.9 - Hypothyroidism, unspecified Plan HPI: Patient is a 57-year-old male on a 12b with a history of hypothyroid disorder/thyroid coma, stroke and brain aneurysm who presents to the emergency room reportedly after his friends to come to a clinic, concern for his memory impairment, delusional thinking (about people being imposters), not taking medications and poor ADLs. Patient is a poor historian and collateral as necessary to further assess. -He has history of stroke and other comorbidities that could influence cognition. Collateral is necessary to figure out the timelines of his memory impairment and whether it has worsened. Also, will need history from Neurology to see what imaging has been done -patient does have some paranoid delusional thoughts; he is vague about them. He does look moderately disheveled however he does not appear overtly disorganized at this time -significantly elevated TSH; he does say he takes his thyroid medication daily but will need collateral -although he says he scared about his memory impairment, he denies all other psychiatric symptoms. -will consult with endocrinology regarding elevated TSH Hospital course: 03/15 Collateral helpful and reveals that he is having psychotic symptoms and is confused, possibly in the face of going off psychiatric medications; sister will try to get a hold of recent medication list; editorial writer did try to call patient's PCP Dr. Hatfield but was unable to connect (ANNETTE Signed). Hypothyroidism due to noncompliance with medication. Memory loss present since stroke 03/16 will start Risperdal 03/17 patient says tired from Risperdal in the morning so will switch to bedtime; remains with paranoid delusions; memory impairment. Very little insight Discussed case with team; discussed with nursing; reviewed vitals and WNL 03/18 no change in presentation; not open to further med changes. Patient used to be on Depakote but does not want to take it and refuses it Will need to discuss further with team. Patient seems to have memory impairment/cognitive dysfunction present since his stroke 2 years ago, Which according to collateral has not necessarily worsened. Patient also has some has paranoid delusional thinking. Seems to be a combination of both cognitive dysfunction and delusional thinking that brings him back to his house and violating restraining order. Patient is not currently under the care of a neurologist; editorial writer discussed this with him any agrees to go, however his sister says he typically has no interest in doctor's appointments or medication. Patient lives at his sister's who cares for his needs; he has no history of violence or aggression towards anyone and is without any SI or HI. 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 Although patient is not in imminent risk for harm to himself or others, he risks getting arrested in prosecuted for violating restraining order. Need to talk with patient's ; will discuss further with team. -Discussed case with nursing; reviewed vitals and WNL 03/19 patient remains with paranoid delusions and without insight; he plans to continue going back to the house since in his mind, it is his house. Disorganized behavior in that he will stand [address] for long periods of time not engaging with others. Says he feels a little tired from the Risperdal but continues to take it. He says he will likely not take it once discharged. 03/20 patient remains without insight and has paranoid delusions. Now having received collateral from his estranged Romina, it is more clear that patient's behaviors in the community are threatening. Romina is now scared of him. He has tried to break into his 1/estranged 's house, has violated and no trespass order multiple times and has been subsequently arrested; the week prior to this admission, a Restraining order was enacted following a text patient sent to Romina which said she is not going to make it out alive. Patient than violated this restraining order. Patient has very little to no insight regarding his behaviors. Patient intends to continue going back to the house since he thinks it is his house and has paranoid, delusional concerns about his . Patient says he will not take medication once he leaves. At this time, patient is not safe for discharge. 03/21 no change; neuro consult pending [facility] 03/22 refused MRI since paranoid 03/26 no change in presentation 03/28 some improvement; for the first time he clearly articulates knowledge of the restraining order, the rules he must obey and the consequence of violating it. He says he will abide by it and that he has no choice. Pt thinks maybe his will let him come back to the house, but is open to the idea that he may be wrong. -consents to MRI he says he'll have to abide by the restraining order. Distribution Operations Manager inquires further, asking if pt will desist from going to the house. Pt corrects editorial writer and says he's mandated to stay 50 feet away, which is written right on the order which I have in my jacket pocket. He says he will abide it and i have to...i have no choice...I don't want to go to long-term. Of note, this is first time patient has clearly stated that he will abide by the restraining order and himself articulated that rules regarding restraining order. Hopefully this guido increased insight possibly due to Risperdal which would be encouraging if there is a treatment that can help patient be more safe in the community. 03/29 went for MRI 03/30 perhaps a little less confused, but difficult to tell. still w/ paranoid, delusional thinking. Agreed to Invega IM but then refused 03/31: continue current tx plan. Attempt to encourage him to take invega sustenna and check TSH/T4 04/01: Continue tx plan. Check thyroid studies. 04/02 no change; continues to say he will respect the restraining order. Will order repeat TSH 04/03 repeat TSH is grossly within normal limits and free T4 within normal limits ruling out hypothyroidism as a contributing factor to patient's confusion. 04/04 family meeting; remains difficult to assess what pt understands about his illness. Distribution Operations Manager shared how his worries of imposters are delusions but he is ambivalent 04/05 planned zoom meeting w/ estranged but unable to get ahold of her; inc rease risperdal to 6mg to see if can help with persistent delusions 04/08 continue current tx plan 04/09 patient does not seem to have improved much with Risperdal even at 6 mg; he agrees to medication change; will consider changing to Zyprexa 04/10 switch to Haldol; pt agrees to med switch 04/11 tolerated Haldol; agrees to EEG FORMULATION/IMPRESSION: Patient is a 57-year-old male with no psychiatric history prior to 2020. 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 Over the past 6-8 months, patient's memory and cognitive function has significantly worsened; patient has developed paranoid delusions and is without insight. Due to a combination of paranoid delusional thinking and cognitive impairment, Patient has been increasingly harassing his estranged . The harassment has worsened and over the past few weeks and patient's estranged is now afraid: he has tried to break into her house, violated a no trespass order, sent a cryptic, threatening text message and has violated a restraining order. Patient does not seem to have any insight that his behaviors are harassing or frightening or that he is operating from paranoid delusions. It seems likely there is some relationship between between patient's paranoid delusions, his cognitive decline and history of either aneurysm/stroke/coma, given the clear timeline. Patient needs further workup with help from Neurology to better assess. At this time patient remains unsafe to be in the community and requires inpatient level of care for treatment and containment for safety and medication management. Plan CV Q 15 minute checks 1. Psychotic symptoms/delusions 2/2 to medical illness (aneurysm/stroke...) vs organic etiology Start Haldol 5mg Will see if EEG can be revealing DC Risperdal Neurology consult MRI [facility] Concern that patient may need a guardian -Records pending: need more detailed history of aneurysm/stroke/coma as reports are all from non clinicians and without pertinent details -some history of prescribed psychotropic medications: mirtazapine 15 mg, Depakote ER 750 mg -symptoms seem to be worsening over the past 5 months (it now seems less likely that patient was adherent with medications) 2. Cognitive disorder s/p stroke, brain aneurysm, myxedema coma? All in 2020: Reportedly present since stroke in 2020 -neurology consult -MRI ordered;remarkable 3. Hypothyroid: resolved on levo labs on 04/03 TSH grossly WNL Free T4 WNL Continue levothyroxine 200mcg daily at 06:30 discussed with mobile lounge driver or operator Dr. 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 He says he does not want and it is to be discontinued. He denies any history of actually having a seizure but says this was started s/p thyroid coma as a prophylactic measure to prevent seizure Distribution Operations Manager talked with Romina, patient's estranged (ANNETTE signed): Romina reports that up until around 2020 when he had his coma and mini strokes, patient was is regular self without any overt psychiatric symptoms; only on editorial writer's further inquiry did she say there was maybe some intermittent, minimal/mild paranoia. 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 She says afterwards he had some rehab and some memory impairment but nowhere near as significant as it is now. She says over the next 6 months his memory problems worsened. At some point they and he went to live with his sister. She says that for the past 8 months his memory has continued to deteriorate. For the past year he has been calling her around 50 or 60 times a day and would send constant text messages all day long. Would frequently show up at her house (she reports the house is fully hers, in her name). She continues to care about him and hope that he would eventually stop coming over as she continually explained that their relationship was over. Once, she let him into the house to see his nephew but then he would not leave an she said it took enormous effort to get him out the door. Since then she has not let him in the house. Despite this, he kept coming over to the house daily, knocking for hours at a time. She knew patient was struggling and did not want him to add to his troubles and so hesitated to call the police. However patient continued to come over and then actually started trying to get into the house, once using a credit card. He would call her daughter and say he standing outside the house. Patient would also stand for hours and front of the house. Romina started to get scared. He tried to get into the house about 3 weeks ago, she call the police who issued a no trespassing order. He violated the order, was arrested and taken to [facility] for couple days; immediately on release he would back to the house and got arrested again. Released again, he went over to the house and stood outside of it. Last week, just before this admission, send a text message to Romina that said she is not going to make it out alive. After this the digital strategist senior manager put a restraining order on patient. He continued to violated, stating outside her house for hours; he left his sister's house and stayed at a friend's house near Romina's and for hours and hours, in the rain, in the snow would technical marketing engineer front of her house, only going to his friend's house to sleep for a few hours and then to repeat the next day. Romina says this is what resulted in this admission. She says he accuses her of being an imposter on the phone; after interacting with the police he'll say they are not real record keeper, they are scammers... She reiterates that he is getting scary and that she is now scared of him. She is relieved to know that is in the hospital in hopes he can get help. Regarding history of psychiatric admissions, Romina says that patient was admitted to a psychiatric hospital at least 2 times following suicide attempts, which also occurred soon after his aneurysm/stroke/coma. She says the the 1st attempt (not necessarily resulting in admission) was an intentional overdose from a bottle of pills. Second attempt was attempt to hang himself. Third attempt patient tried to cut his neck with a circular saw. Patient was admitted; required stitches only Of note, 's reporting corroborates with both patient's sister and with patient's own account Patient educated on: diagnosis and medication risk/benefits Informed Consent: understands, does not understand and further education needed Reason for contiued inpatient stay Substantial Risk for: med/psych decompensation Time Spent With Patient Time: Total time managing care of this patient today ____ minutes.
[2022-04-11 18:00] VITALS: BP 118/67; PULSE 86; RESP 18; TEMP 36.4; O2SAT 97
[2022-04-11] MEDS: HaloperidoL 5 MG TABLET PO (20:26)
--- NOTE | 2022-04-12 | EEG_ITS ---
This is a 16-channel EEG with an EKG lead. The patient is reported awake during the tracing. Background EEG rhythm is about 10 hertz 5-20 microvolt posteriorly and lower amplitude fast anteriorly. Photic stimulation does not produce any significant driving. Hyperventilation is not performed. Cardiac lead does not reveal any significant abnormality. No sharp wave spikes or paroxysmal tendencies noted. IMPRESSION: Unremarkable EEG. MD DAMION Amaro/MING / [id number]
[2022-04-12 06:00] VITALS: BP 105/68; PULSE 91; RESP 20; TEMP 36.8; O2SAT 96
[2022-04-12 07:00] VITALS: BMI 26.6
[2022-04-12] MEDS: Levothyroxine Sodium 200 MCG TABLET PO (08:43)
--- NOTE | 2022-04-12 17:08 | P.PNPSI_ITS ---
Subjective Subjective Date of Service: 04/12/22 Reason For Visit: capgrass delusions Interim History: Met with patient; discussed and teams Patient agrees to increasing Haldol. Reviewed EEG which was unremarkable. Patient continues to call his estranged Romina on have conversations. He says that he is not sure whether she has decided he cannot come home despite reality testing. Patient however seems to agree more often to obey restraining order (which she continues to ignore herself, talking on the phone w/ him). Continued concern about whether or not people on the phone are imposters with a real person. Mental Status Exam Mental Status Exam Narrative: Pt is alert and oriented; behavior is cooperative, friendly on approach calm, but also disorganized, often standing in one place in hallway for extended periods of time; patient is not in distress; dressed in casual attire, clean cloths, adequate hygiene; mood is described as ok affect blunted; eye contact appropriate; Speech is normal rate, volume and prosody and not pressured; some psychomotor retardation present; thought process is goal directed but concrete; Thought content is on paranoid delusions; some anxiety over memory impairment; he is able to be pertinent to relevant topics when asked; denies any SI/HI. Does not seem internally preoccupied; and he denies AVH. Memory impairment significant Patients insight and judgment impaired. Diagnostics Vital Signs (24Hr): Vital Signs - 24 hr 04/11/22 18:00 04/12/22 06:00 Temperature 97.5 F 98.3 F Pulse Rate 86 91 Respiratory Rate 18 20 Blood Pressure 118/67 105/68 Pulse Oximetry 97 96 Oxygen Delivery Method Room Air Room Air BMI result Body Mass Index 26.6 Labs 03/12/22 21:36 03/14/22 08:37 Imaging Radiology Impressions: ITS Impressions Head CT 03/12/22 20:45 IMPRESSION: 1. No acute intracranial pathology. Brain MRI 03/29/22 13:15 IMPRESSION: 1. No demonstrated acute intracranial abnormalities. No abnormal intracranial enhancement. 2. Mild to moderate nonspecific white matter changes most commonly seen with underlying microangiopathy. Mild generalized cerebral volume loss. Medications Medications Current Medications Acetaminophen (Acetaminophen 325 Mg Tablet) 650 mg PO Q6H PRN PRN Reason: Headache/Pain Mild Scale (1-3) Al Hydroxide/Mg Hydroxide (Magnesium Hydrox/Alum Hydrox 30 Ml Oral.Susp) 30 ml PO Q6H PRN PRN Reason: Heartburn/Nausea Benztropine Mesylate (Benztropine Mesylate 0.5 Mg Tablet) 0.5 mg PO TID PRN PRN Reason: Extrapyramidal Effects Haloperidol (Haloperidol 5 Mg Tablet) 10 mg PO BEDTIME [facility] Levothyroxine Sodium (Levothyroxine Sodium 200 Mcg Tablet) 200 mcg PO DAILY@0630 [facility] Last Admin: 04/12/22 08:43 Dose: 200 mcg Magnesium Hydroxide (Milk Of Magnesia 30 Ml Oral.Susp) 30 ml PO DAILY PRN PRN Reason: Constipation Trazodone HCl (Trazodone Hcl 50 Mg Tablet) 50 mg PO BEDTIME PRN PRN Reason: Insomnia Allergies Allergies Allergy/AdvReac Type Severity Reaction Status Date / Time amoxicillin [AMOXICILLIN] Allergy Mild VOMITING/ABD Verified 04/07/22 22:10 PAIN Assessment & Plan Assessment & Plan (1) Cognitive and behavioral changes: Status: Acute Code(s): R41.89 - Other symptoms and signs involving cognitive functions and awareness; R46.89 - Other symptoms and signs involving appearance and behavior (2) Delusional disorder: Status: Acute Code(s): F22 - Delusional disorders (3) Hypothyroidism: Status: Acute Code(s): E03.9 - Hypothyroidism, unspecified Plan HPI: Patient is a 57-year-old male on a 12b with a history of hypothyroid disorder/thyroid coma, stroke and brain aneurysm who presents to the emergency room reportedly after his friends to come to a clinic, concern for his memory impairment, delusional thinking (about people being imposters), not taking medications and poor ADLs. Patient is a poor historian and collateral as necessary to further assess. -He has history of stroke and other comorbidities that could influence cognition. Collateral is necessary to figure out the timelines of his memory impairment and whether it has worsened. Also, will need history from Neurology to see what imaging has been done -patient does have some paranoid delusional thoughts; he is vague about them. He does look moderately disheveled however he does not appear overtly disorg anized at this time -significantly elevated TSH; he does say he takes his thyroid medication daily b ut will need collateral -although he says he scared about his memory impairment, he denies all other psychiatric symptoms. -will consult with endocrinology regarding elevated TSH Hospital course: 03/15 Collateral helpful and reveals that he is having psychotic symptoms and is confused, possibly in the face of going off psychiatric medications; sister will try to get a hold of recent medication list; commercial lines underwriter did try to call patient's PCP Dr. Hatfield but was unable to connect (ANNETTE Signed). Hypothyroidism due to noncompliance with medication. Memory loss present since stroke 03/16 will start Risperdal 03/17 patient says tired from Risperdal in the morning so will switch to bedtime; remains with paranoid delusions; memory impairment. Very little insight Discussed case with team; discussed with nursing; reviewed vitals and WNL 03/18 no change in presentation; not open to further med changes. Patient used to be on Depakote but does not want to take it and refuses it Will need to discuss further with team. Patient seems to have memory impairment/cognitive dysfunction present since his stroke 2 years ago, Which according to collateral has not necessarily worsened. Patient also has some has paranoid delusional thinking. Seems to be a combination of both cognitive dy sfunction and delusional thinking that brings him back to his house and violating restraining order. Patient is not currently under the care of a neurologist; commercial lines underwriter discussed this with him any agrees to go, however his sister says he typically has no interest in doctor's appointments or medication. Patient lives at his sister's who cares for his needs; he has no history of violence or aggression towards anyone and is without any SI or HI. 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 Although patient is not in imminent risk for harm to himself or others, he risks getting arrested in prosecuted for violating restraining order. Need to talk with patient's ; will discuss further with team. -Discussed case with nursing; reviewed vitals and WNL 03/19 patient remains with paranoid delusions and without insight; he plans to continue going back to the house since in his mind, it is his house. Disorganized behavior in that he will stand [address] for long periods of time not engaging with others. Says he feels a little tired from the Risperdal but continues to take it. He says he will likely not take it once discharged. 03/20 patient remains without insight and has paranoid delusions. Now having received collateral from his estranged Romina, it is more clear that patient's behaviors in the community are threatening. Romina is now scared of him. He has tried to break into his 1/estranged 's house, has violated and no trespass order multiple times and has been subsequently arrested; the week prior to this admission, a Restraining order was enacted following a text patient sent to Romina which said she is not going to make it out alive. Patient than violated this restraining order. Patient has very little to no insight regarding his behaviors. Patient intends to continue going back to the house since he thinks it is his house and has paranoid, delusional concerns about his . Patient says he will not take medication once he leaves. At this time, patient is not safe for discharge. 03/21 no change; neuro consult pending [facility] 03/22 refused MRI since paranoid 03/26 no change in presentation 03/28 some improvement; for the first time he clearly articulates knowledge of the restraining order, the rules he must obey and the consequence of violating it. He says he will abide by it and that he has no choice. Pt thinks maybe his will let him come back to the house, but is open to the idea that he may be wrong. -consents to MRI he says he'll have to abide by the restraining order. Television Receiver Analyzer inquires further, asking if pt will desist from going to the house. Pt corrects commercial lines underwriter and says he's mandated to stay 50 feet away, which is written right on the order which I have in my jacket pocket. He says he will abide it and i have to...i have no choice...I don't want to go to custodial. Of note, this is first time patient has clearly stated that he will abide by the restraining order and himself articulated that rules regarding restraining order. Hopefully this guido increased insight possibly due to Risperdal which would be encouraging if there is a treatment that can help patient be more safe in the community. 1/26 went for MRI 03/30 perhaps a little less confused, but difficult to tell. still w/ paranoid, delusional thinking. Agreed to Invega IM but then refused 03/31: continue current tx plan. Attempt to encourage him to take invega sustenna and check TSH/T4 04/01: Continue tx plan. Check thyroid studies. 04/02 no change; continues to say he will respect the restraining order. Will order repeat TSH 04/03 repeat TSH is grossly within normal limits and free T4 within normal limits ruling out hypothyroidism as a contributing factor to patient's confusion. 04/04 family meeting; remains difficult to assess what pt understands about his illness. Television Receiver Analyzer shared how his worries of imposters are delusions but he is ambivalent 04/05 planned zoom meeting w/ estranged but unable to get ahold of her; increase risperdal to 6mg to see if can help with persistent delusions 04/08 continue current tx plan 04/09 patient does not seem to have improved much with Risperdal even at 6 mg; he agrees to medication change; will consider changing to Zyprexa 04/10 switch to Haldol; pt agrees to med switch 04/11 tolerated Haldol; agrees to EEG 04/12 EEG unremarkable; will increase Haldol to 10 mg FORMULATION/IMPRESSION: Patient is a 57-year-old male with no psychiatric history prior to 2020. 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 Over the past 6-8 months, patient's memory and cognitive function has significantly worsened; patient has developed paranoid delusions and is without insight. Due to a combination of paranoid delusional thinking and cognitive impairment, Patient has been increasingly harassing his estranged . The harassment has worsened and over the past few weeks and patient's estranged is now afraid: he has tried to break into her house, violated a no trespass order, sent a cryptic, threatening text message and has violated a restraining order. Patient does not seem to have any insight that his behaviors are harassing or frightening or that he is operating from paranoid delusions. It seems likely there is some relationship between between patient's paranoid delusions, his cognitive decline and history of either aneurysm/stroke/coma, given the clear timeline. Patient needs further workup with help from Neurology to better assess. At this time patient remains unsafe to be in the community and requires inpatient level of care for treatment and containment for safety and medication management. Plan CV Q 15 minute checks 1. Psychotic symptoms/delusions 2/2 to medical illness (aneurysm/stroke...) vs organic etiology Increase to Haldol 10 mg EEG unremarkable DC Risperdal MRI [facility] Concern that patient may need a guardian -Records pending: need more detailed history of aneurysm/stroke/coma as reports are all from non clinicians and without pertinent details -some history of prescribed psychotropic medications: mirtazapine 15 mg, Depakote ER 750 mg -symptoms seem to be worsening over the past 5 months (it now seems less likely that patient was adherent with medications) 2. Cognitive disorder s/p stroke, brain aneurysm, myxedema coma? All in 2020: Reportedly present since stroke in 2020 -neurology consult -MRI ordered;remarkable 3. Hypothyroid: resolved on levo labs on 04/03 TSH grossly WNL Free T4 WNL Continue levothyroxine 200mcg daily at 06:30 discussed with spinning room worker Dr. 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 He says he does not want and it is to be discontinued. He denies any history of actually having a seizure but says this was started s/p thyroid coma as a prophylactic measure to prevent seizure Television Receiver Analyzer talked with Romina, patient's estranged (ANNETTE signed): Romina reports that up until around 2020 when he had his coma and mini strokes, patient was is regular self without any overt psychiatric symptoms; only on commercial lines underwriter's further inquiry did she say there was maybe some intermittent, minimal/mild paranoia. 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 She says afterwards he had some rehab and some memory impairment but nowhere near as significant as it is now. She says over the next 6 months his memory problems worsened. At some point they and he went to live with his sister. She says that for the past 8 months his memory has continued to deteriorate. For the past year he has been calling her around 50 or 60 times a day and would send constant text messages all day long. Would frequently show up at her house (she reports the house is fully hers, in her name). She continues to care about him and hope that he would eventually stop coming over as she continually explained that their relationship was over. Once, she let him into the house to see his nephew but then he would not leave an she said it took enormous effort to get him out the door. Since then she has not let him in the house. Despite this, he kept coming over to the house daily, knocking for hours at a time. She knew patient was struggling and did not want him to add to his troubles and so hesitated to call the police. However patient continued to come over and then actually started trying to get into the house, once using a credit card. He would call her daughter and say he standing outside the house. Patient would also stand for hours and front of the house. Romina started to get scared. He tried to get into the house about 3 weeks ago, she call the police who issued a no trespassing order. He violated the order, was arrested and [facility] for couple [facility]; immediately on release he would back to the house and got arrested again. Released again, he went over to the house and stood outside of it. Last week, just before this admission, send a text message to Romina that said she is not going to make it out alive. After this the cinder crusher operator put a restraining order on patient. He continued to violated, stating outside her house for hours; he left his sister's house and stayed at a friend's house near [place] and for hours and hours, in the rain, in the snow would infrastructure administrator front of her house, only going to his friend's house to sleep for a few hours and then to repeat the next day. Romina says this is what resulted in this admission. She says he accuses her of being an imposter on the phone; after interacting with the police he'll say they are not real wood scrap handler, they are scammers... She reiterates that he is getting scary and that she is now scared of him. She is relieved to know that is in the hospital in hopes he can get help. Regarding history of psychiatric admissions, Romina says that patient was admitted to a psychiatric hospital at least 2 times following suicide attempts, which also occurred soon after his aneurysm/stroke/coma. She says the the 1st attempt (not necessarily resulting in admission) was an intentional overdose from a bottle of pills. Second attempt was attempt to hang himself. Third attempt patient tried to cut his neck with a circular saw. Patient was admitted; required stitches only Of note, 's reporting corroborates with both patient's sister and with patient's own account Patient educated on: diagnosis Informed Consent: further education needed Reason for contiued inpatient stay Substantial Risk for: med/psych decompensation Time Spent With Patient Time: Total time managing care of this patient today ____ minutes.
[2022-04-12 21:47] VITALS: BP 113/70; PULSE 80; RESP 14; TEMP 36.8
[2022-04-12] MEDS: HaloperidoL 5 MG TABLET 10 MG PO (21:49)
[2022-04-13 06:00] VITALS: BP 113/65; PULSE 84; RESP 16; TEMP 36.7; O2SAT 95
[2022-04-13] MEDS: Levothyroxine Sodium 200 MCG TABLET PO (06:50)
--- NOTE | 2022-04-13 16:59 | P.PNPSI_ITS ---
Subjective Subjective Date of Service: 04/13/22 Reason For Visit: capgrass delusions Interim History: Met with patient; discussed in teams Patient a little more engageable and brighter affect on approach. Talks a little more freely. He remains skeptical about whether not his will allow him to move back into the house however he says he will obey there is straightening order. Mental Status Exam Mental Status Exam Narrative: Pt is alert and oriented; behavior is cooperative, friendly on approach calm, but also disorganized, often standing in one place in hallway for extended periods of time; patient is not in distress; dressed in casual attire, clean cloths, adequate hygiene; mood is described as ok affect blunted; eye contact appropriate; Speech is normal rate, volume and prosody and not pressured; some psychomotor retardation present; thought process is goal directed but concrete; Thought content is on paranoid delusions; some anxiety over memory impairment; he is able to be pertinent to relevant topics when asked; denies any SI/HI. Does not seem internally preoccupied; and he denies AVH. Memory impairment significant Patients insight and judgment impaired. Diagnostics Vital Signs (24Hr): Vital Signs - 24 hr 04/12/22 21:47 04/13/22 06:00 Temperature 98.3 F 98.0 F Pulse Rate 80 84 Respiratory Rate 14 16 Blood Pressure 113/70 113/65 Pulse Oximetry 95 Oxygen Delivery Method Room Air BMI result Body Mass Index 26.6 Labs 03/12/22 21:36 03/14/22 08:37 Imaging Radiology Impressions: ITS Impressions Head CT 03/12/22 20:45 IMPRESSION: 1. No acute intracranial pathology. Brain MRI 03/29/22 13:15 IMPRESSION: 1. No demonstrated acute intracranial abnormalities. No abnormal intracranial enhancement. 2. Mild to moderate nonspecific white matter changes most commonly seen with underlying microangiopathy. Mild generalized cerebral volume loss. Medications Medications Current Medications Acetaminophen (Acetaminophen 325 Mg Tablet) 650 mg PO Q6H PRN PRN Reason: Headache/Pain Mild Scale (1-3) Al Hydroxide/Mg Hydroxide (Magnesium Hydrox/Alum Hydrox 30 Ml Oral.Susp) 30 ml PO Q6H PRN PRN Reason: Heartburn/Nausea Benztropine Mesylate (Benztropine Mesylate 0.5 Mg Tablet) 0.5 mg PO TID PRN PRN Reason: Extrapyramidal Effects Haloperidol (Haloperidol 5 Mg Tablet) 10 mg PO BEDTIME [facility] Last Admin: 04/12/22 21:49 Dose: 10 mg Levothyroxine Sodium (Levothyroxine Sodium 200 Mcg Tablet) 200 mcg PO D RAFAEL@0630 [facility] Last Admin: 04/13/22 06:50 Dose: 200 mcg Magnesium Hydroxide (Milk Of Magnesia 30 Ml Oral.Susp) 30 ml PO DAILY PRN PRN Reason: Constipation Trazodone HCl (Trazodone Hcl 50 Mg Tablet) 50 mg PO BEDTIME PRN PRN Reason: Insomnia Allergies Allergies Allergy/AdvReac Type Severity Reaction Status Date / Time amoxicillin [AMOXICILLIN] Allergy Mild VOMITING/ABD Verified 04/07/22 22:10 PAIN Assessment & Plan Assessment & Plan (1) Cognitive and behavioral changes: Status: Acute Code(s): R41.89 - Other symptoms and signs involving cognitive functions and awareness; R46.89 - Other symptoms and signs involving appearance and behavior (2) Delusional disorder: Status: Acute Code(s): F22 - Delusional disorders (3) Hypothyroidism: Status: Acute Code(s): E03.9 - Hypothyroidism, unspecified Plan HPI: Patient is a 57-year-old male on a 12b with a history of hypothyroid disorder/thyroid coma, stroke and brain aneurysm who presents to the emergency room reportedly after his friends to come to a clinic, concern for his memory im pairment, delusional thinking (about people being imposters), not taking medications and poor ADLs. Patient is a poor historian and collateral as necessary to further assess. -He has history of stroke and other comorbidities that could influence cognition. Collateral is necessary to figure out the timelines of his memory impairment and whether it has worsened. Also, will need history from Neurology to see what imaging has been done -patient does have some paranoid delusional thoughts; he is vague about them. He does look moderately disheveled however he does not appear overtly disorgani zed at this time -significantly elevated TSH; he does say he takes his thyroid medication daily but will need collateral -although he says he scared about his memory impairment, he denies all other ps ychiatric symptoms. -will consult with endocrinology regarding elevated TSH Hospital course: 03/15 Collateral helpful and reveals that he is having psychotic symptoms and is c onfused, possibly in the face of going off psychiatric medications; sister will try to get a hold of recent medication list; commercial lines underwriter did try to call patient's PCP Dr. Hatfield but was unable to connect (ANNETTE Signed). Hypothyroidism due to noncompliance with medication. Memory loss present since stroke 03/16 will start Risperdal 03/17 patient says tired from Risperdal in the morning so will switch to bedtime; remains with paranoid delusions; memory impairment. Very little insight Discussed case with team; discussed with nursing; reviewed vitals and WNL 03/18 no change in presentation; not open to further med changes. Patient used to be on Depakote but does not want to take it and refuses it Will need to discuss further with team. Patient seems to have memory impairment/cognitive dysfunction present since his stroke 2 years ago, Which according to collateral has not necessarily worsened. Patient also has some has paranoid delusional thinking. Seems to be a combination of both cognitive dysfunction and delusional thinking that brings him back to his house and violating restraining order. Patient is not currently under the care of a neurologist; commercial lines underwriter discussed this with him any agrees to go, however his sister says he typically has no interest in doctor's appointments or medication. Patient lives at his sister's who cares for his needs; he has no history of violence or aggression towards anyone and is without any SI or HI. 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 Although patient is not in imminent risk for harm to himself or others, he risks getting arrested in prosecuted for violating restraining order. Need to talk with patient's ; will discuss further with team. -Discussed case with nursing; reviewed vitals and WNL 03/19 patient remains with paranoid delusions and without insight; he plans to continue going back to the house since in his mind, it is his house. Disorganized behavior in that he will stand [address] for long periods of time not engaging with others. Says he feels a little tired from the Risperdal but continues to take it. He says he will likely not take it once discharged. 03/20 patient remains without insight and has paranoid delusions. Now having received collateral from his estranged Romina, it is more clear that patient's behaviors in the community are threatening. Romina is now scared of him. He has tried to break into his 1/estranged 's house, has violated and no trespass order multiple times and has been subsequently arrested; the week prior to this admission, a Restraining order was enacted following a text patient sent to Romina which said she is not going to make it out alive. Patient than violated this restraining order. Patient has very little to no in sight regarding his behaviors. Patient intends to continue going back to the house since he thinks it is his house and has paranoid, delusional concerns about his . Patient says he will not take medication once he leaves. At this time, patient is not safe for discharge. 03/21 no change; neuro consult pending [facility] 03/22 refused MRI since paranoid 03/26 no change in presentation 03/28 some improvement; for the first time he clearly articulates knowledge of the restraining order, the rules he must obey and the consequence of violating it. He says he will abide by it and that he has no choice. Pt thinks maybe his will let him come back to the house, but is open to the idea that he may be wrong. -consents to MRI he says he'll have to abide by the restraining order. Underwriting Internship inquires further, asking if pt will desist from going to the house. Pt corrects commercial lines underwriter and says he's mandated to stay 50 feet away, which is written right on the order which I have in my jacket pocket. He says he will abide it and i have to...i have no choice...I don't want to go to [facility]. Of note, this is first time patient has clearly stated that he will abide by the restraining order and himself articulated that rules regarding restraining order. Hopefully this guido increased insight possibly due to Risperdal which would be encouraging if there is a treatment that can help patient be more safe in the community. 03/29 went for MRI 03/30 perhaps a little less confused, but difficult to tell. still w/ paranoid, delusional thinking. Agreed to Invega IM but then refused 03/31: continue current tx plan. Attempt to encourage him to take invega sustenna and check TSH/T4 04/01: Continue tx plan. Check thyroid studies. 04/02 no change; continues to say he will respect the restraining order. Will order repeat TSH 04/03 repeat TSH is grossly within normal limits and free T4 within normal limits ruling out hypothyroidism as a contributing factor to patient's confusion. 04/04 family meeting; remains difficult to assess what pt understands about his illness. Underwriting Internship shared how his worries of imposters are delusions but he is ambivalent 04/05 planned zoom meeting w/ estranged but unable to get ahold of her; increase risperdal to 6mg to see if can help with persistent delusions 04/08 continue current tx plan 04/09 patient does not seem to have improved much with Risperdal even at 6 mg; he agrees to medication change; will consider changing to Zyprexa 04/10 switch to Haldol; pt agrees to med switch 04/11 tolerated Haldol; agrees to EEG 04/12 EEG unremarkable; will increase Haldol to 10 mg 04/13 patient a little brighter and a little more expressive. Patient continues to talk to his on the telephone. Underwriting Internship and team discussed patients dynamic with his Romina. It occurs to commercial lines underwriter and team that despite the fact that she got a restraining order on him, she is not really all that afraid of him; she continues to engage with him on the phone, almost daily (which ostensibly is a breach of the restraining order) and has even offered to give him a ride home from the hospital when discharged if he needs it (which she herself told commercial lines underwriter). While patient remains with poor insight regarding her continued and clearly expressed edict that he will not return to live with her, commercial lines underwriter agrees with patient that she does give him mixed messages. Will continue to assess patient; however despite his poor insight, he is more consistently saying that he will in fact obey the restraining order. FORMULATION/IMPRESSION: Patient is a 57-year-old male with no psychiatric history prior to 2020. 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 Over the past 6-8 months, patient's memory and cognitive function has significantly worsened; patient has developed paranoid delusions and is without insight. Due to a combination of paranoid delusional thinking and cognitive impairment, Patient has been increasingly harassing his estranged . The harassment has worsened and over the past few weeks and patient's estranged initially reported she was afraid of him after he tried to break into her house, violated a no trespass order, sent a cryptic text message and has violated a restraining order (text message initially thought to be threatening, but revealed to be more vague). Patient does not seem to have any insight that his behaviors are harassing or frightening or that he is operating from paranoid delusions. It seems likely there is some relationship between between patient's paranoid delusions, his cognitive decline and history of either aneurysm/stroke/coma, given the clear timeline. Over the course of his admission, it became more clear that patient's while concerned, is less afraid of patient. He has no history of harm and mostly just stares at her house. She says she does not know what he might do which is what worries her the most, however she continues to engage with him, talking with him on the phone while on the unit and has even offered him a ride on discharge, demonstrating that she is not all that afraid of him. Regarding whether not patient needs a guardian, he may very well but that has yet to be fully determined is patient is now on medication that may improve his functioning. Plan CV Q 15 minute checks 1. Psychotic symptoms/delusions 2/2 to medical illness (aneurysm/stroke...) vs organic etiology Haldol 10 mg DC Risperdal 2. Cognitive disorder s/p stroke, brain aneurysm, myxedema coma? All in 2020: Reportedly present since stroke in 2020 EEG 03/12/22 unremarkable [facility] MRI 03/29 IMPRESSION: 1.? No demonstrated acute intracranial abnormalities. No abnormal intracranial enhancement. 2.? Mild to moderate nonspecific white matter changes most commonly seen with underlying microangiopathy. Mild generalized cerebral volume loss. 3. Hypothyroid: resolved on levo labs on 04/03 TSH grossly WNL Free T4 WNL Continue levothyroxine 200mcg daily at 06:[address] 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 He says he does not want and it is to be discontinued. He denies any history of actually having a seizure but says this was started s/p thyroid coma as a prophylactic measure to prevent seizure Underwriting Internship talked with Romina, patient's estranged (ANNETTE signed): Romina reports that up until around 2020 when he had his coma and mini strokes, patient was is regular self without any overt psychiatric symptoms; only on commercial lines underwriter's further inquiry did she say there was maybe some intermittent, minimal/mild paranoia. 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 She says afterwards he had some rehab and some memory impairment but nowhere near as significant as it is now. She says over the next 6 months his memory problems worsened. At some p oint they and he went to live with his sister. She says that for the past 8 months his memory has continued to deteriorate. For the past year he has been calling her around 50 or 60 times a day and would send constant text messages all day long. Would frequently show up at her house (she reports the house is fully hers, in her name). She continues to care about him and hope that he would eventually stop coming over as she continually explained that their relationship was over. Once, she let him into the house to see his nephew but then he would not leave an she said it took enormous effort to get him out the door. Since then she has not let him in the house. Despite this, he kept coming over to the house daily, knocking for hours at a time. She knew patient was struggling and did not want him to add to his troubles and so hesitated to call the police. However patient continued to come over and then actually started trying to get into the house, once using a credit card. He would call her daughter and say he standing outside the house. Patient would also stand for hours and front of the house. Romina started to get scared. He tried to get into the house about 3 weeks ago, she call the police who issued a no trespassing order. He violated the order, was arrested and taken to [facility] for couple days; immediately on release he would back to the house and got arrested again. Released again, he went over to the house and stood outside of it. Last week, just before this admission, send a text message to Romina that said she is not going to make it out alive. After this the presiding judge put a restraining order on patient. He continued to violated, stating outside her house for hours; he left his sister's house and stayed at a friend's house near Romina's and for hours and hours, in the rain, in the snow would shirt finisher front of her house, only going to his friend's house to sleep for a few hours and then to repeat the next day. Romina says this is what resulted in this admission. She says he accuses her of being an imposter on the phone; after interacting with the police he'll say they are not real geophysical laboratory chief, they are scammers... She reiterates that he is getting scary and that she is now scared of him. She is relieved to know that is in the hospital in hopes he can get help. Regarding history of psychiatric admissions, Romina says that patient was admitted to a psychiatric hospital at least 2 times following suicide attempts, which also occurred soon after his aneurysm/stroke/coma. She says the the 1st attempt (not necessarily resulting in admission) was an intentional overdose from a bottle of pills. Second attempt was attempt to hang himself. Third attempt patient tried to cut his neck with a circular saw. Patient was admitted ; required stitches only Of note, 's reporting corroborates with both patient's sister and with patient's own account Patient educated on: diagnosis Informed Consent: understands, does not understand and further education needed Reason for contiued inpatient stay Substantial Risk for: med/psych decompensation Time Spent With Patient Time: Total time managing care of this patient today ____ minutes.
[2022-04-13 18:00] VITALS: BP 125/71; PULSE 78; RESP 14; TEMP 37.1
[2022-04-13] MEDS: HaloperidoL 5 MG TABLET 10 MG PO (21:33)
[2022-04-14] MEDS: Levothyroxine Sodium 200 MCG TABLET PO (08:40)
[2022-04-14 09:25] VITALS: BP 105/59; PULSE 89; RESP 18; TEMP 36.7; O2SAT 97
[2022-04-14 18:00] VITALS: BP 108/65; PULSE 85; RESP 18; TEMP 36.6; O2SAT 97
--- NOTE | 2022-04-14 18:49 | P.PNPSI_ITS ---
Subjective Subjective Date of Service: 04/14/22 Reason For Visit: capgrass delusions Interim History: Briefly met with patient; discussed in team Patient remains brighter and more engageable on approach. Discussed potentially discharging next week which he is hopeful for. Says he is tolerating medications well and denies any side effects; sleeping and eating well. Mental Status Exam Mental Status Exam Narrative: Pt is alert and oriented; behavior is cooperative, friendly on approach calm, but also disorganized, often standing in one place in hallway for extended perio ds of time; patient is not in distress; dressed in casual attire, clean cloths, adequate hygiene; mood is described as ok affect blunted; eye contact appropriate; Speech is normal rate, volume and prosody and not pressured; some psychomotor retardation present; thought process is goal directed but concrete; Thought content is on paranoid delusions; some anxiety over memory impairment; he is able to be pertinent to relevant topics when asked; denies any SI/HI. Does not seem internally preoccupied; and he denies AVH. Memory impairment significant Patients insight and judgment impaired. Diagnostics Vital Signs (24Hr): Vital Signs - 24 hr 04/14/22 09:25 Temperature 98.0 F Pulse Rate 89 Respiratory Rate 18 Blood Pressure 105/59 L Pulse Oximetry 97 Oxygen Delivery Method Room Air BMI result Body Mass Index 26.6 Labs 03/12/22 21:36 03/14/22 08:37 Imaging Radiology Impressions: ITS Impressions Head CT 03/12/22 20:45 IMPRESSION: 1. No acute intracranial pathology. Brain MRI 03/29/22 13:15 IMPRESSION: 1. No demonstrated acute intracranial abnormalities. No abnormal intracranial enhancement. 2. Mild to moderate nonspecific white matter changes most commonly seen with underlying microangiopathy. Mild generalized cerebral volume loss. Medications Medications Current Medications Acetaminophen (Acetaminophen 325 Mg Tablet) 650 mg PO Q6H PRN PRN Reason: Headache/Pain Mild Scale (1-3) Al Hydroxide/Mg Hydroxide (Magnesium Hydrox/Alum Hydrox 30 Ml Oral.Susp) 30 ml PO Q6H PRN PRN Reason: Heartburn/Nausea Benztropine Mesylate (Benztropine Mesylate 0.5 Mg Tablet) 0.5 mg PO TID PRN PRN Reason: Extrapyramidal Effects Haloperidol (Haloperidol 5 Mg Tablet) 10 mg PO BEDTIME MANAS Last Admin: 04/13/22 21:33 Dose: 10 mg Levothyroxine Sodium (Levothyroxine Sodium 200 Mcg Tablet) 200 mcg PO DAILY@0630 MANAS Last Admin: 04/14/22 08:40 Dose: 200 mcg Magnesium Hydroxide (Milk Of Magnesia 30 Ml Oral.Susp) 30 ml PO DAILY PRN PRN Reason: Constipation Trazodone HCl (Trazodone Hcl 50 Mg Tablet) 50 mg PO BEDTIME PRN PRN Reason: Insomnia Allergies Allergies Allergy/AdvReac Type Severity Reaction Status Date / Time amoxicillin [AMOXICILLIN] Allergy Mild VOMITING/ABD Verified 04/07/22 22:10 PAIN Assessment & Plan Assessment & Plan (1) Cognitive and behavioral changes: Status: Acute Code(s): R41.89 - Other symptoms and signs involving cognitive functions and awareness; R46.89 - Other symptoms and signs involving appearance and behavior (2) Delusional disorder: Status: Acute Code(s): F22 - Delusional disorders (3) Hypothyroidism: Status: Acute Code(s): E03.9 - Hypothyroidism, unspecified Plan HPI: Patient is a 57-year-old male on a 12b with a history of hypothyroid disorder/t hyroid coma, stroke and brain aneurysm who presents to the emergency room reportedly after his friends to come to a clinic, concern for his memory impairment, delusional thinking (about people being imposters), not taking medications and poor ADLs. Patient is a poor historian and collateral as necessary to further assess. -He has history of stroke and other comorbidities that could influence c ognition. Collateral is necessary to figure out the timelines of his memory impairment and whether it has worsened. Also, will need history from Neurology to see what imaging has been done -patient does have some paranoid delusional thoughts; he is vague about them. He does look moderately disheveled however he does not appear overtly disorganized at this time -significantly elevated TSH; he does say he takes his thyroid medication daily but will need collateral -although he says he scared about his memory impairment, he denies all other psychiatric symptoms. -will consult with endocrinology regarding elevated TSH Hospital course: 03/15 Collateral helpful and reveals that he is having psychotic symptoms and is confused, possibly in the face of going off psychiatric medications; sister will try to get a hold of recent medication list; customs entry writer did try to call patient's PCP Dr. Hatfield but was unable to connect (ANNETTE Signed). Hypothyroidism due to noncompliance with medication. Memory loss present since stroke 03/16 will start Risperdal 03/17 patient says tired from Risperdal in the morning so will switch to bedtime; remains with paranoid delusions; memory impairment. Very little insight Discussed case with team; discussed with nursing; reviewed vitals and WNL 03/18 no change in presentation; not open to further med changes. Patient used to be on Depakote but does not want to take it and refuses it Will need to discuss further with team. Patient seems to have memory impairment/cognitive dysfunction present since his stroke 2 years ago, Which according to collateral has not necessarily worsened. Patient also has some has paranoid delusional thinking. Seems to be a combination of both cognitive dysfunction and delusional thinking that brings him back to his house and violating restraining order. Patient is not currently under the care of a neurologist; customs entry writer discussed this with him any agrees to go, however his sister says he typically has no interest in doctor's appointments or medication. Patient lives at his sister's who cares for his needs; he has no history of violence or aggression towards anyone and is without any SI or HI. 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 Although patient is not in imminent risk for harm to himself or others, he risks getting arrested in prosecuted for violating restraining order. Need to talk with patient's ; will discuss further with team. -Discussed case with nursing; reviewed vitals and WNL 03/19 patient remains with paranoid delusions and without insight; he plans to continue going back to the house since in his mind, it is his house. Disorganized behavior in that he will stand [address] for long periods of time not engaging with others. Says he feels a little tired from the Risperdal but continues to take it. He says he will likely not take it once discharged. 03/20 patient remains without insight and has paranoid delusions. Now having received collateral from his estranged Romina, it is more clear that patient's behaviors in the community are threatening. Romina is now scared of him. He has tried to break into his 1/estranged 's house, has violated and no trespass order multiple times and has been subsequently arrested; the week prior to this admission, a Restraining order was enacted following a text lena ent sent to Romina which said she is not going to make it out alive. Patient than violated this restraining order. Patient has very little to no insight regarding his behaviors. Patient intends to continue going back to the house since he thinks it is his house and has paranoid, delusional concerns about his . Patient says he will not take medication once he leaves. At this time, patient is not safe for discharge. 03/21 no change; neuro consult pending [place] 03/22 refused MRI since paranoid 03/26 no change in presentation 03/28 some improvement; for the first time he clearly articulates knowledge of the restraining order, the rules he must obey and the consequence of violating it. He says he will abide by it and that he has no choice. Pt thinks maybe his will let him come back to the house, but is open to the idea that he may be wrong. -consents to MRI he says he'll have to abide by the restraining order. Mail List Librarian inquires further, asking if pt will desist from going to the house. Pt corrects customs entry writer and says he's mandated to stay 50 feet away, which is written right on the order which I have in my jacket pocket. He says he will abide it and i have to...i have no choice...I don't want to go to half-way. Of note, this is first time patient has clearly stated that he will abide by the restraining order and himself articulated that rules regarding restraining order. Hopefully this guido increased insight possibly due to Risperdal which would be encouraging if there is a treatment that can help patient be more safe in the community. 03/29 went for MRI 03/30 perhaps a little less confused, but difficult to tell. still w/ paranoid, delusional thinking. Agreed to Invega IM but then refused 03/31: continue current tx plan. Attempt to encourage him to take invega sustenna and check TSH/T4 04/01: Continue tx plan. Check thyroid studies. 04/02 no change; continues to say he will respect the restraining order. Will order repeat TSH 04/03 repeat TSH is grossly within normal limits and free T4 within normal limits ruling out hypothyroidism as a contributing factor to patient's confusion. 04/04 family meeting; remains difficult to assess what pt understands about his illness. Mail List Librarian shared how his worries of imposters are delusions but he is ambivalent 04/05 planned zoom meeting w/ estranged but unable to get ahold of her; increase risperdal to 6mg to see if can help with persistent delusions 04/08 continue current tx plan 04/09 patient does not seem to have improved much with Risperdal even at 6 mg; he agrees to medication change; will consider changing to Zyprexa 04/10 switch to Haldol; pt agrees to med switch 04/11 tolerated Haldol; agrees to EEG 04/12 EEG unremarkable; will increase Haldol to 10 mg 04/13 patient a little brighter and a little more expressive. Patient continues to talk to his on the telephone. Mail List Librarian and team discussed patients dynam ic with his Romina. It occurs to customs entry writer and team that despite the fact that she got a restraining order on him, she is not really all that afraid of him; she continues to engage with him on the phone, almost daily (which ostensibly is a breach of the restraining order) and has even offered to give him a ride home from the hospital when discharged if he needs it (which she herself told customs entry writer). While patient remains with poor insight regarding her continued and clearly expressed edict that he will not return to live with her, customs entry writer agrees with patient that she does give him mixed messages. Will continue to assess patient; however despite his poor insight, he is more consistently saying that he will in fact obey the restraining order. 04/14 Continue current tx plan FORMULATION/IMPRESSION: Patient is a 57-year-old male with no psychiatric history prior to 2020. 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 Over the past 6-8 months, patient's memory and cognitive function has significantly worsened; patient has developed paranoid delusions and is without insight. Due to a combination of paranoid delusional thinking and cognitive impairment, Patient has been increasingly harassing his estranged . The harassment has worsened and over the past few weeks and patient's e stranged initially reported she was afraid of him after he tried to break into her house, violated a no trespass order, sent a cryptic text message and has violated a restraining order (text message initially thought to be threatening, but revealed to be more vague). Patient does not seem to have any insight that his behaviors are harassing or frightening or that he is operating from paranoid delusions. It seems likely there is some relationship between between patient's paranoid delusions, his cognitive decline and history of either aneurysm/stroke/coma, given the clear timeline. Over the course of his admission, it became more clear that patient's while concerned, is less afraid of patient. He has no history of harm and mostly just stares at her house. She says she does not know what he might do which is what worries her the most, however she continues to engage with him, talking with him on the phone while on the unit and has even offered him a ride on discharge, tere strating that she is not all that afraid of him. Regarding whether not patient needs a guardian, he may very well but that has yet to be fully determined is patient is now on medication that may improve his functioning. Plan CV Q 15 minute checks 1. Psychotic symptoms/delusions 2/2 to medical illness (aneurysm/stroke...) vs organic etiology Haldol 10 mg DC Risperdal 2. Cognitive disorder s/p stroke, brain aneurysm, myxedema coma? All in 2020: Reportedly present since stroke in 2020 -neurology consult -MRI ordered;remarkable 3. Hypothyroid: resolved on levo labs on 04/03 TSH grossly WNL Free T4 WNL Continue levothyroxine 200mcg daily at 06:30 discussed with trust administrative assistant Dr. 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 He says he does not want and it is to be discontinued. He denies any history of actually having a seizure but says this was started s/p thyroid coma as a prophylactic measure to prevent seizure Mail List Librarian talked with Romina, patient's estranged (ANNETTE signed): Romina reports that up until around 2020 when he had his coma and mini strokes, patient was is regular self without any overt psychiatric symptoms; only on customs entry writer's further inquiry did she say there was maybe some intermittent, minim al/mild paranoia. 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 She says afterwards he had some rehab and some memory impairment but nowhere near as significant as it is now. She says over the next 6 months his memory problems worsened. At some point they and he went to live with his sister. She says that for the past 8 months his memory has continued to deteriorate. For the past year he has been calling her around 50 or 60 times a day and would send constant text messages all day long. Would frequently show up at her house (she reports the house is fully hers, in her name). She continues to care about him and hope that he would eventually stop coming over as she continually explained that their relationship was over. Once, she let him into the house to see his nephew but then he would not leave an she said it took enormous effort to get him out the door. Since then she has not let him in the house. Despite this, he kept coming over to the house daily, knocking for hours at a time. She knew patient was struggling and did not want him to add to his troubles and so hesitated to call the police. However patient continued to come over and then actually started trying to get into the house, once using a credit card. He would call her daughter and say he standing outside the house. Patient would also stand for hours and front of the house. Romina started to get scared. He tried to get into the house about 3 weeks ago, she call the police who issued a no trespassing order. He violated the order, was arrested and taken to [facility] half-way for couple days; immediately on release he would back to the house and got arrested again. Released again, he went over to the house and stood outside of it. Last week, just before this admission, send a text message to Romina that said she is not going to make it out alive. After this the desk clerk put a restraining order on patient. He continued to violated, stating outside her house for hours; he left his sister's house and stayed at a friend's house near Romina's and for hours and hours, in the rain, in the snow would leasing sales consultant front of her house, only going to his friend's house to sleep for a few hours and then to repeat the next day. Romina says this is what resulted in this admission. She says he accuses her of being an imposter on the phone; after interacting with the police he'll say they are not real associate partner, they are scammers... She reiterates that he is getting scary and that she is now scared of him. She is relieved to know that is in the hospital in hopes he can get help. Regarding history of psychiatric admissions, Romina says that patient was admitted to a psychiatric hospital at least 2 times following suicide attempts, which also occurred soon after his aneurysm/stroke/coma. She says the the 1st attempt (not necessarily resulting in admission) was an intentional overdose from a bottle of pills. Second attempt was attempt to hang himself. Third attempt patient tried to cut his neck with a circular saw. Patient was adm itted; required stitches only Of note, 's reporting corroborates with both patient's sister and with patient's own account Patient educated on: diagnosis, medication risk/benefits and therapeutic strategies Informed Consent: understands, does not understand and further education needed Reason for contiued inpatient stay Substantial Risk for: stable for discharge Time Spent With Patient Time: Total time managing care of this patient today ____ minutes.
[2022-04-14] MEDS: HaloperidoL 5 MG TABLET 10 MG PO (20:45)
[2022-04-15 08:15] VITALS: BP 118/69; PULSE 81; RESP 18; TEMP 36.9; O2SAT 96
[2022-04-15] MEDS: Levothyroxine Sodium 200 MCG TABLET PO (08:25)
--- NOTE | 2022-04-15 18:02 | P.PNPSI_ITS ---
Subjective Subjective Date of Service: 04/15/22 Reason For Visit: capgrass delusions Interim History: Late entry note for pt seen on 04/15/22 met with patient; discussed in teams Patient reports he has good; nope complaints, no requests. Mental Status Exam Mental Status Exam Narrative: Pt is alert and oriented; behavior is cooperative, friendly on approach calm, but also disorganized, often standing in one place in hallway for extended periods of time; patient is not in distress; dressed in casual attire, clean cloths, adequate hygiene; mood is described as ok affect blunted; eye contact appropriate; Speech is normal rate, volume and prosody and not pressured; some psychomotor retardation present; thought process is goal directed but concrete; Thought content is on paranoid delusions; some anxiety over memory impairment; he is able to be pertinent to relevant topics when asked; denies any SI/HI. Does not seem internally preoccupied; and he denies AVH. Memory impairment significant Patients insight and judgment impaired. Diagnostics Vital Signs (24Hr): Vital Signs - 24 hr 04/16/22 20:33 04/17/22 08:40 Temperature 98.1 F 97.5 F Pulse Rate 77 83 Respiratory Rate 16 20 Blood Pressure 110/67 121/72 Pulse Oximetry 98 Oxygen Delivery Method Room Air BMI result Body Mass Index 26.6 Labs 03/12/22 21:36 03/14/22 08:37 Imaging Radiology Impressions: ITS Impressions Head CT 03/12/22 20:45 IMPRESSION: 1. No acute intracranial pathology. Brain MRI 03/29/22 13:15 IMPRESSION: 1. No demonstrated acute intracranial abnormalities. No abnormal intracranial enhancement. 2. Mild to moderate nonspecific white matter changes most commonly seen with underlying microangiopathy. Mild generalized cerebral volume loss. Medications Medications Current Medications Acetaminophen (Acetaminophen 325 Mg Tablet) 650 mg PO Q6H PRN PRN Reason: Headache/Pain Mild Scale (1-3) Al Hydroxide/Mg Hydroxide (Magnesium Hydrox/Alum Hydrox 30 Ml Oral.Susp) 30 ml PO Q6H PRN PRN Reason: Heartburn/Nausea Benztropine Mesylate (Benztropine Mesylate 0.5 Mg Tablet) 0.5 mg PO TID PRN PRN Reason: Extrapyramidal Effects Haloperidol (Haloperidol 5 Mg Tablet) 10 mg PO BEDTIME MANAS Last Admin: 04/16/22 20:39 Dose: 10 mg Levothyroxine Sodium (Levothyroxine Sodium 200 Mcg Tablet) 200 mcg PO DAILY@0630 [facility] Last Admin: 04/17/22 06:07 Dose: 200 mcg Magnesium Hydroxide (Milk Of Magnesia 30 Ml Oral.Susp) 30 ml PO DAILY PRN PRN Reason: Constipation Trazodone HCl (Trazodone Hcl 50 Mg Tablet) 50 mg PO BEDTIME PRN PRN Reason: Insomnia Allergies Allergies Allergy/AdvReac Type Severity Reaction Status Date / Time amoxicillin [AMOXICILLIN] Allergy Mild VOMITING/ABD Verified 04/07/22 22:10 PAIN Assessment & Plan Assessment & Plan (1) Cognitive and behavioral changes: Status: Acute Code(s): R41.89 - Other symptoms and signs involving cognitive functions and awareness; R46.89 - Other symptoms and signs involving appearance and behavior (2) Delusional disorder: Status: Acute Code(s): F22 - Delusional disorders (3) Hypothyroidism: Status: Acute Code(s): E03.9 - Hypothyroidism, unspecified Plan HPI: Patient is a 57-year-old male on a 12b with a history of hypothyroid disord er/thyroid coma, stroke and brain aneurysm who presents to the emergency room reportedly after his friends to come to a clinic, concern for his memory impairment, delusional thinking (about people being imposters), not taking medications and poor ADLs. Patient is a poor historian and collateral as necessary to further assess. -He has history of stroke and other comorbidities that could influence cognition. Collateral is necessary to figure out the timelines of his memory impairment and whether it has worsened. Also, will need history from Neurology to see what imaging has been done -patient does have some paranoid delusional thoughts; he is vague about them. He does look moderately disheveled however he does not appear overtly disorganized at this time -significantly elevated TSH; he does say he takes his thyroid medication daily but will need collateral -although he says he scared about his memory impairment, he denies all other psychiatric symptoms. -will consult with endocrinology regarding elevated TSH Hospital course: 03/15 Collateral helpful and reveals that he is having psychotic symptoms and is confused, possibly in the face of going off psychiatric medications; sister will try to get a hold of recent medication list; scientific technical writer did try to call patient's PCP Dr. Hatfield but was unable to connect (ANNETTE Signed). Hypothyroidism due to noncompliance with medication. Memory loss present since stroke 03/16 will start Risperdal 03/17 patient says tired from Risperdal in the morning so will switch to bedtime; remains with paranoid delusions; memory impairment. Very little insight Discussed case with team; discussed with nursing; reviewed vitals and WNL 03/18 no change in presentation; not open to further med changes. Patient used to be on Depakote but does not want to take it and refuses it Will need to discuss further with team. Patient seems to have memory impairment/cognitive dysfunction present since his stroke 2 years ago, Which according to collateral has not necessarily worsened. Patient also has some has paranoid delusional thinking. Seems to be a combination of both cognitive dysfunction and delusional thinking that brings him back to his house and violating restraining order. Patient is not currently under the care of a vernon rologist; scientific technical writer discussed this with him any agrees to go, however his sister says he typically has no interest in doctor's appointments or medication. Patient lives at his sister's who cares for his needs; he has no history of violence or aggression towards anyone and is without any SI or HI. 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 Although patient is not in imminent risk for harm to himself or others, he risks getting arrested in prosecuted for violating restraining order. Need to talk with patient's ; will discuss further with team. -Discussed case with nursing; reviewed vitals and WNL 03/19 patient remains with paranoid delusions and without insight; he plans to continue going back to the house since in his mind, it is his house. Disorganized behavior in that he will stand [address] for long periods of time not engaging with others. Says he feels a little tired from the Risperdal but continues to take it. He says he will likely not take it once discharged. 03/20 patient remains without insight and has paranoid delusions. Now having received collateral from his estranged Romina, it is more clear that patient's behaviors in the community are threatening. Romina is now scared of him. He has tried to break into his 1/estranged 's house, has violated and no trespass order multiple times and has been subsequently arrested; the week prior to this admission, a Restraining order was enacted following a text patient sent to Romina which said she is not going to make it out alive. Patient than violated this restraining order. Patient has very little to no insight regarding his behaviors. Patient intends to continue going back to the house since he thinks it is his house and has paranoid, delusional concerns about his . Patient says he will not take medication once he leaves. At this time, patient is not safe for discharge. 03/21 no change; neuro consult pending [place] 03/22 refused MRI since paranoid 03/26 no change in presentation 03/28 some improvement; for the first time he clearly articulates knowledge of the restraining order, the rules he must obey and the consequence of violating it. He says he will abide by it and that he has no choice. Pt thinks maybe his will let him come back to the house, but is open to the idea that he may be wrong. -consents to MRI he says he'll have to abide by the restraining order. Dining Server inquires further, asking if pt will desist from going to the house. Pt corrects scientific technical writer and says he's mandated to stay 50 feet away, which is written right on the order which I have in my jacket pocket. He says he will abide it and i have to...i have no choice...I don't want to go to [facility]. Of note, this is first time patient has clearly stated that he will abide by the restraining order and himself articulated that rules regarding restraining order. Hopefully this guido increased insight possibly due to Risperdal which would be encouraging if there is a treatment that can help patient be more safe in the community. 03/29 went for MRI 03/30 perhaps a little less confused, but difficult to tell. still w/ paranoid, delusional thinking. Agreed to Invega IM but then refused 03/31: continue current tx plan. Attempt to encourage him to take invega sustenna and check TSH/T4 1/29: Continue tx plan. Check thyroid studies. 04/02 no change; continues to say he will respect the restraining order. Will order repeat TSH 04/03 repeat TSH is grossly within normal limits and free T4 within normal limits ruling out hypothyroidism as a contributing factor to patient's confusion. 04/04 family meeting; remains difficult to assess what pt understands about his illness. Dining Server shared how his worries of imposters are delusions but he is ambivalent 04/05 planned zoom meeting w/ estranged but unable to get ahold of her; increase risperdal to 6mg to see if can help with persistent delusions 04/08 continue current tx plan 04/09 patient does not seem to have improved much with Risperdal even at 6 mg; he agrees to medication change; will consider changing to Zyprexa 04/10 switch to Haldol; pt agrees to med switch 04/11 tolerated Haldol; agrees to EEG 04/12 EEG unremarkable; will increase Haldol to 10 mg 04/13 patient a little brighter and a little more expressive. Patient continues to talk to his on the telephone. Dining Server and team discussed geronimo ernst with his Romina. It occurs to scientific technical writer and team that despite the fact that she got a restraining order on him, she is not really all that afraid of him; she continues to engage with him on the phone, almost daily (which ostensibly is a breach of the restraining order) and has even offered to give him a ride home from the hospital when discharged if he needs it (which she herself told scientific technical writer). While patient remains with poor insight regarding her continued and clearly expressed edict that he will not return to live with her, scientific technical writer agrees with patient that she does give him mixed messages. Will continue to assess patient; however despite his poor insight, he is more consistently sa suzan that he will in fact obey the restraining order. 04/14 Continue current tx plan 04/15 continue current tx plan FORMULATION/IMPRESSION: Patient is a 57-year-old male with no psychiatric history prior to 2020. 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 Over the past 6-8 months, patient's memory and cognitive function has significantly worsened; patient has developed paranoid delusions and is without insight. Due to a combination of paranoid delusional thinking and cognitive impairment, Patient has been increasingly harassing his estranged . The harassment has worsened and over the past few weeks and patient's estranged initially reported she was afraid of him after he tried to break into her house, violated a no trespass order, sent a cryptic text message and has violated a restraining order (text message initially thought to be threatening, but revealed to be more vague). Patient does not seem to have any insight that his behaviors are harassing or frightening or that he is operating from paranoid delusions. It seems likely there is some relationship between be tween patient's paranoid delusions, his cognitive decline and history of either aneurysm/stroke/coma, given the clear timeline. Over the course of his admission, it became more clear that patient's while concerned, is less afraid of patient. He has no history of harm and mostly just stares at her house. She says she does not know what he might do which is what worries her the most, however she continues to engage with him, talking with him on the phone while on the unit and has even offered him a ride on discharge, demonstrating that she is not all that afraid of him. Regarding whether not patient needs a guardian, he may at some point, however, this has yet to be fully determined as patient is now on medication that may improve his functioning. Plan CV Q 15 minute checks 1. Psychotic symptoms/delusions 2/2 to medical illness (aneurysm/stroke...) vs organic etiology Continue Haldol 10 mg DC Risperdal 2. Cognitive disorder s/p stroke, brain aneurysm, myxedema coma? All in 2020: Reportedly present since stroke in 2020 -neurology consult -MRI ordered;remarkable 3. 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 He says he does not want and it is to be discontinued. He denies any history of actually having a seizure but says this was started s/p thyroid coma as a prophylactic measure to prevent seizure Dining Server talked with Romina, patient's estranged (ANNETTE signed): Romina reports that up until around 2020 when he had his coma and mini strokes, patient was is regular self without any overt psychiatric symptoms; only on scientific technical writer's further inquiry did she say there was maybe some intermittent, minimal/mild paranoia. 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 She says afterwards he had some rehab and some memory impairment but nowhere near as significant as it is now. She says over the next 6 months his memory problems worsened. At some point they and he went to live with his sister. She says that for the past 8 months his memory has continued to deteriorate. For the past year he has been calling her around 50 or 60 times a day and would send constant text messages all day long. Would frequently show up at her house (she reports the house is fully hers, in her name). She continues to care about him and hope that he would eventually stop coming over as she continually explained that their relationship was over. Once, she let him into the house to see his nephew but then he would not leave an she said it took enormous effort to get him out the door. Since then she has not let him in the house. Despite this, he kept coming over to the house daily, knocking for hours at a time. She knew patient was struggling and did not want him to add to his troubles and so hesitated to call the police. However patient continued to come over and then actually st arted trying to get into the house, once using a credit card. He would call her daughter and say he standing outside the house. Patient would also stand for hours and front of the house. Romina started to get scared. He tried to get into the house about 3 weeks ago, she call the police who issued a no trespassing order. He violated the order, was arrested and [facility]; immediately on release he would back to the house and got arrested again. Released again, he went over to the house and stood outside of it. Last week, just before this admission, send a text message to Romina that said she is not going to make it out alive. After this the distilling department supervisor put a rest raining order on patient. He continued to violated, stating outside her house for hours; he left his sister's house and stayed at a friend's house near Romina's and for hours and hours, in the rain, in the snow would specialist field engineer front of her house, only going to his friend's house to sleep for a few hours and then to repeat the next day. Romina says this is what resulted in this admission. She says he accuses her of being an imposter on the phone; after interacting with the police he'll say they are not real jelly filter tender, they are scammers... She reiterates that he is getting scary and that she is now scared of him. She is relieved to know that is in the hospital in hopes he can get help. Regarding history of psychiatric admissions, Romina says that patient was admitted to a psychiatric hospital at least 2 times following suicide attempts, which also occurred soon after his aneurysm/stroke/coma. She says the the 1st attempt (not necessarily resulting in admission) was an intentional overdose from a bottle of pills. Second attempt was attempt to hang himself. Third attempt patient tried to cut his neck with a circular saw. Patient was admitted; required stitches only Of note, 's reporting corroborates with both patient's sister and with patient's own account Reason for contiued inpatient stay Substantial Risk for: stable for discharge Time Spent With Patient Time: Total time managing care of this patient today ____ minutes.
[2022-04-15 20:45] VITALS: BP 131/76; PULSE 86; TEMP 36.3; O2SAT 94
[2022-04-15] MEDS: HaloperidoL 5 MG TABLET 10 MG PO (20:56)
[2022-04-16] MEDS: Levothyroxine Sodium 200 MCG TABLET PO (06:13)
[2022-04-16 08:10] VITALS: BP 118/65; PULSE 79; RESP 18; TEMP 36.1; O2SAT 9
[2022-04-16 20:33] VITALS: BP 110/67; PULSE 77; RESP 16; TEMP 36.7
[2022-04-16] MEDS: HaloperidoL 5 MG TABLET 10 MG PO (20:39)
[2022-04-17] MEDS: Levothyroxine Sodium 200 MCG TABLET PO (06:07)
[2022-04-17 08:40] VITALS: BP 121/72; PULSE 83; RESP 20; TEMP 36.4; O2SAT 98
--- NOTE | 2022-04-17 10:04 | P.PNPSI_ITS ---
Subjective Subjective Date of Service: 04/16/22 Reason For Visit: capgrass delusions Interim History: Late entry note for patient seen on 02/13 met with patient; discussed in teams Still wonders if people can be imposters when he is talking to them on the phone, however he says when talking them [id number] he has no problem knowing in distinguishing who they are. He reiterates that his confusion only exists when he's on the phone. Patient maintains he no longer is worried about his sister trying to sell his house that that is not on his mind. He also says that he will obey the restraining order. Patient does not want long-acting injectable Haldol, however he says he will continue taking his medications, Haldol and levothyroxine and that he will follow-up with outpatient providers. He plans to return to live at his sister's house. Rehabilitation Inspector talked with patient's sister who agrees that patient is a more alert and seems to be brighter. She welcomes him back home to live at her house. She understands that it is unclear at this time how patient will handle being back in the community but that he deserves a chance to prove that he can have safe behaviors and obey the restraining order. Diagnostics Vital Signs (24Hr): Vital Signs - 24 hr 04/16/22 20:33 04/17/22 08:40 Temperature 98.1 F 97.5 F Pulse Rate 77 83 Respiratory Rate 16 20 Blood Pressure 110/67 121/72 Pulse Oximetry 98 Oxygen Delivery Method Room Air BMI result Body Mass Index 26.6 Labs 03/12/22 21:36 03/14/22 08:37 Imaging Radiology Impressions: ITS Impressions Head CT 03/12/22 20:45 IMPRESSION: 1. No acute intracranial pathology. Brain MRI 03/29/22 13:15 IMPRESSION: 1. No demonstrated acute intracranial abnormalities. No abnormal intracranial enhancement. 2. Mild to moderate nonspecific white matter changes most commonly seen with underlying microangiopathy. Mild generalized cerebral volume loss. Medications Medications Current Medications Acetaminophen (Acetaminophen 325 Mg Tablet) 650 mg PO Q6H PRN PRN Reason: Headache/Pain Mild Scale (1-3) Al Hydroxide/Mg Hydroxide (Magnesium Hydrox/Alum Hydrox 30 Ml Oral.Susp) 30 ml PO Q6H PRN PRN Reason: Heartburn/Nausea Benztropine Mesylate (Benztropine Mesylate 0.5 Mg Tablet) 0.5 mg PO TID PRN PRN Reason: Extrapyramidal Effects Haloperidol (Haloperidol 5 Mg Tablet) 10 mg PO BEDTIME [facility] Last Admin: 04/16/22 20:39 Dose: 10 mg Levothyroxine Sodium (Levothyroxine Sodium 200 Mcg Tablet) 200 mcg PO DAILY@0630 [facility] Last Admin: 04/17/22 06:07 Dose: 200 mcg Magnesium Hydroxide (Milk Of Magnesia 30 Ml Oral.Susp) 30 ml PO DAILY PRN PRN Reason: Constipation Trazodone HCl (Trazodone Hcl 50 Mg Tablet) 50 mg PO BEDTIME PRN PRN Reason: Insomnia Allergies Allergies Allergy/AdvReac Type Severity Reaction Status Date / Time amoxicillin [AMOXICILLIN] Allergy Mild VOMITING/ABD Verified 04/07/22 22:10 PAIN Assessment & Plan Assessment & Plan (1) Cognitive and behavioral changes: Status: Acute Code(s): R41.89 - Other symptoms and signs involving cognitive functions and awareness; R46.89 - Other symptoms and signs involving appearance and behavior (2) Delusional disorder: Status: Acute Code(s): F22 - Delusional disorders (3) Hypothyroidism: Status: Acute Code(s): E03.9 - Hypothyroidism, unspecified Plan HPI: Patient is a 57-year-old male on a 12b with a history of hypothyroid disorder/thyroid coma, stroke and brain aneurysm who presents to the emergency room reportedly after his friends to come to a clinic, concern for his memory impairment, delusional thinking (about people being imposters), not taking medications and poor ADLs. Patient is a poor historian and collateral as necessary to further assess. -He has history of stroke and other comorbidities that could influence cognition. Collateral is necessary to figure out the timelines of his memory impairment and whether it has worsened. Also, will need history from Neurology to see what imaging has been done -patient does have some paranoid delusional thoughts; he is vague about them. He does look moderately disheveled however he does not appear overtly d isorganized at this time -significantly elevated TSH; he does say he takes his thyroid medication daily but will need collateral -although he says he scared about his memory impairment, he denies all other psychiatric symptoms. -will consult with endocrinology regarding elevated TSH Hospital course: 03/15 Collateral helpful and reveals that he is having psychotic symptoms and is confused, possibly in the face of going off psychiatric medications; sister will try to get a hold of recent medication list; web content writer did try to call patient's PCP Dr. Hatfield but was unable to connect (ANNETTE Signed). Hypothyroidism due to noncompliance with medication. Memory loss present since stroke 03/16 will start Risperdal 03/17 patient says tired from Risperdal in the morning so will switch to bedtime; remains with paranoid delusions; memory impairment. Very little insight Discussed case with team; discussed with nursing; reviewed vitals and WNL 03/18 no change in presentation; not open to further med changes. Patient used to be on Depakote but does not want to take it and refuses it Will need to discuss further with team. Patient seems to have memory impairment/cognitive dysfunction present since his stroke 2 years ago, Which according to collateral has not necessarily worsened. Patient also has some has paranoid delusional thinking. Seems to be a combination of both cognitive dysfunction and delusional thinking that brings him back to his house and violating restraining order. Patient is not currently under the care of a neurologist; web content writer discussed this with him any agrees to go, however his sister says he typically has no interest in doctor's appointments or medication. Patient lives at his sister's who cares for his needs; he has no history of violence or aggression towards anyone and is without any SI or HI. 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 Although patient is not in imminent risk for harm to himself or others, he risks getting arrested in prosecuted for violating restraining order. Need to talk with patient's ; will discuss further with team. -Discussed case with nursing; reviewed vitals and WNL 03/19 patient remains with paranoid delusions and without insight; he plans to continue going back to the house since in his mind, it is his house. Disorganized behavior in that he will stand [address] for long periods of time not engaging with others. Says he feels a little tired from the Risperdal but continues to take it. He says he will likely not take it once discharged. 03/20 patient remains without insight and has paranoid delusions. Now having received collateral from his estranged Romina, it is more clear that patient's behaviors in the community are threatening. Romina is now scared of him. He has tried to break into his 1/estranged 's house, has violated and no trespass order multiple times and has been subsequently arrested; the week prior to this admission, a Restraining order was enacted following a text patient sent to Romina which said she is not going to make it out alive. Patient than violated this restraining order. Patient has very little to no insight regarding his behaviors. Patient intends to continue going back to the house since he thinks it is his house and has paranoid, delusional concerns about his . Patient says he will not take medication once he leaves. At this time, patient is not safe for discharge. 03/21 no change; neuro consult pending [place] 03/22 refused MRI since paranoid 03/26 no change in presentation 03/28 some improvement; for the first time he clearly articulates knowledge of the restraining order, the rules he must obey and the consequence of violating it. He says he will abide by it and that he has no choice. Pt thinks maybe his will let him come back to the house, but is open to the idea that he may be wrong. -consents to MRI he says he'll have to abide by the restraining order. Rehabilitation Inspector inquires further, asking if pt will desist from going to the house. Pt corrects web content writer and says h e's mandated to stay 50 feet away, which is written right on the order which I have in my jacket pocket. He says he will abide it and i have to...i have no choice...I don't want to go to residential. Of note, this is first time patient has clearly stated that he will abide by the restraining order and himself articulated that rules regarding restraining order. Hopefully this guido increased insight possibly due to Risperdal which would be encouraging if there is a treatment that can help patient be more safe in the community. 03/29 went for MRI 03/30 perhaps a little less confused, but difficult to tell. still w/ paranoid, delusional thinking. Agreed to Invega IM but then refused 03/31: continue current tx plan. Attempt to encourage him to take invega sustenna and check TSH/T4 04/01: Continue tx plan. Check thyroid studies. 04/02 no change; continues to say he will respect the restraining order. Will order repeat TSH 04/03 repeat TSH is grossly within normal limits and free T4 within normal limits ruling out hypothyroidism as a contributing factor to patient's confusion. 04/04 family meeting; remains difficult to assess what pt understands about his illness. Rehabilitation Inspector shared how his worries of imposters are delusions but he is ambivalent 04/05 planned zoom meeting w/ estranged but unable to get ahold of her; increase risperdal to 6mg to see if can help with persistent delusions 04/08 continue current tx plan 04/09 patient does not seem to have improved much with Risperdal even at 6 mg; he agrees to medication change; will consider changing to Zyprexa 04/10 switch to Haldol; pt agrees to med switch 04/11 tolerated Haldol; agrees to EEG 04/12 EEG unremarkable; will increase Haldol to 10 mg 04/13 patient a little brighter and a little more expressive. Patient continues to talk to his on the telephone. Rehabilitation Inspector and team discussed patients dynamic with his Romina. It occurs to web content writer and team that despite the fact that she got a restraining order on him, she is not really all that afraid of him; she continues to engage with him on the phone, almost daily (which ostensibly is a breach of the restraining order) and has even offered to give him a ride home from the hospital when discharged if he needs it (which she herself told web content writer). While patient remains with poor insight regarding her continued and clearly expressed edict that he will not return to live with her, web content writer agrees with patient that she does give him mixed messages. Will continue to assess patient; however despite his poor insight, he is more consistently saying that he will in fact obey the restraining order. 04/14 Continue current tx plan 04/15 continue current tx plan 04/16 patient is hoping to return home. Still wonders if people can be imposters when he is talking to them on the phone, however he says when talking them [id number] he has no problem knowing in distinguishing who they are. He reiterates that his confusion only exists when he's on the phone. Patient maintains he no longer is worried about his sister trying to sell his house that that is not on his mind. He also says that he will obey the restraining order. Patient does not want long-acting injectable Haldol, however he says he will continue taking his medications, Haldol and levothyroxine and that he will follow-up with outpatient providers. He plans to return to live at his sister's house. Patient has remain on the unit for a thorough workup, including MRI, EEG, lab work all which have not produced any additional information that is currently helping to resolve his struggles. Rehabilitation Inspector discussed this with patient and his sister and both understand. Rehabilitation Inspector also discussed follow-up for a full neuropsych evaluation and an appointment has been made with which patient says he will attend. Rehabilitation Inspector talked with patient's sister who agrees that patient is a more alert and seems to be brighter. She welcomes him back home to live at her house. She understands that it is unclear at this time how patient will handle being back in the community but that he deserves a chance to prove that he can have safe behaviors and obey the restraining order. Has no history of harm to others; he repeats his draw to the house is a combination of being drawn by his memories and concern for his or if the yard needs attending to. Patient continues to have delusional ideas however they are less intense and some of them have resolved. He has remained with appropriate behavior on the unit, in good behavioral and impulse control. This time patient is not in imminent risk for harm to self or others and his request for discharge honored. FORMULATION/IMPRESSION: Patient is a 57-year-old male with no psychiatric history prior to 2020. 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 Over the past 6-8 months, patient's memory and cognitive function has significantly worsened; patient has developed paranoid delusions and is without insight. Due to a combination of paranoid delusional thinking and cognitive impairment, Patient has been increasingly harassing his estranged . The harassment has worsened and over the past few weeks and patient's estranged initially reported she was afraid of him after he tried to break into her house, violated a no trespass order, sent a cryptic text message and cazares s violated a restraining order (text message initially thought to be threatening, but revealed to be more vague). Patient does not seem to have any insight that his behaviors are harassing or frightening or that he is operating from paranoid delusions. It seems likely there is some relationship between between patient's paranoid delusions, his cognitive decline and history of either aneurysm/stroke/coma, given the clear timeline. Over the course of his admission, it became more clear that patient's while concerned, is less afraid of patient. He has no history of harm and mostly just stares at her house. She says she does not know what he might do which is what worries her the most, however she continues to engage with him, talking with him on the phone while on the unit and has even offered him a ride on discharge, demonstrating that she is not all that afraid of him. Regarding whether not patient needs a guardian, he may at some point, however, this has yet to be fully determined as patient is now on medication that may improve his functioning. Plan CV Q 15 minute checks 1. Psychotic symptoms/delusions 2/2 to medical illness (aneurysm/stroke...) vs organic etiology Continue Haldol 10 mg DC Risperdal 2. Cognitive disorder s/p stroke, brain aneurysm, myxedema coma? All in 2020: Reportedly present since stroke in 2020 -neurology consult -MRI ordered;remarkable 3. Hypothyroid: resolved on levo labs on 04/03 TSH grossly WNL Free T4 WNL Continue levothyroxine 200mcg daily at 06:[address] 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 He says he does not want and it is to be discontinued. He denies any history of actually having a seizure but says this was started s/p thyroid coma as a prophylactic measure to prevent seizure Rehabilitation Inspector talked with Romina, patient's estranged (ANNETTE signed): Romina reports that up until around 2020 when he had his coma and mini strokes, patient was is regular self without any overt psychiatric symptoms; only on web content writer's further inquiry did she say there was maybe some intermittent, minimal/mild paranoia. 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 She says afterwards he had some rehab and some memory impairment but nowhere near as significant as it is now. She says over the next 6 months his memory problems worsened. At some point they and he went to live with his sister. She says that for the past 8 months his memory has continued to deteriorate. For the past year he has been calling her around 50 or 60 times a day and would send constant text messages all day long. Would frequently show up at her house (she reports the house is fully hers, in her name). She continues to care about him and hope that he would eventually stop coming over as she continually explained that their relationship was over. Once, she let him into the house to see his nephew but then he would not leave an she said it took enormous effort to get him out the door. Since then she has not let him in the house. Despite this, he kept coming over to the house daily, knocking for hours at a time. She knew patient was struggling and did not want him to add to his troubles and so hesitated to call the police. However patient continued to come over and then actually started trying to get into the house, once using a credit card. He would call her daughter and say he standing outside the house. Patient would also stand for hours and front of the house. Romina started to get scared. He tried to get into the house about 3 weeks ago, she call the police who issued a no trespassing order. He violated the order, was arrested and [facility]; immediately on release he would back to the house and got arrested again. Released again, he went over to the house and stood outside of it. Last week, just before this admission, send a text message to Romina that said she is not going to make it out alive. After this the lining maker put a restraining order on patient. He continued to violated, stating outside her house for hours; he left his sister's house and stayed at a friend's house near Romina's and for hours and hours, in the rain, in the snow would power plant installer front of her house, only going to his friend's house to sleep for a few hours and then to repeat the next day. Romina says this is what resulted in this admission. She says he accuses her of being an imposter on the phone; after interacting with the police he'll say they are not real traveling construction superintendent, they are scammers... She reiterates that he is getting scary and that she is now scared of him. She is relieved to know that is in the hospital in hopes he can get help. Regarding history of psychiatric admissions, Romina says that patient was admitted to a psychiatric hospital at least 2 times following suicide attempts, which also occurred soon after his aneurysm/stroke/coma. She says the the 1st attempt (not necessarily resulting in admission) was an intentional overdose from a bottle of pills. Second attempt was attempt to hang himself. Third attempt patient tried to cut his neck with a circular saw. Patient was admitted; required stitches only Of note, 's reporting corroborates with both patient's sister and with patient's own account Patient educated on: diagnosis, medication risk/benefits and medical condition Reason for contiued inpatient stay Substantial Risk for: stable for discharge Time Spent With Patient Time: Total time managing care of this patient today ____ minutes.
--- NOTE | 2022-04-17 11:01 | PC.NURSE ---
Patient alert, oriented, responding appropriately to questions. Denies SI/HI, denies AH/VH. States he will be leaving today to live with his sister. States I guess so when asked if he is ready to be discharged. No concerns reported. Reviewed belongings w/ patient- no concerns reported.
--- NOTE | 2022-04-17 13:42 | P.DS_ITS ---
DS: Providers Provider Date of Service: 04/17/22 Date of admission: 03/13/22 15:37 Date of discharge: 04/17/22 Primary care physician: Unknown Physician Attending physician on admission: Teo Moralez Consults: 03/21/22 09:57 Consult to Neurology Routine Consulting Provider: [facility] Reason for consultation: worsening cognitive decline; new onset of paranoia s/p stroke/thryoid coma Attending physician on discharge: Teo Moralez DS: Diagnosis Discharge Diagnosis (1) Cognitive and behavioral changes: Status: Acute (2) Delusional disorder: Status: Acute (3) Hypothyroidism: Status: Acute DS: Medications Discharge Medications Home Medications: Previous Rx's Medication Instructions Recorded haloperidol 10 mg tablet 10 mg PO BEDTIME 30 days #30 tabs 04/17/22 levothyroxine 200 mcg tablet 200 mcg PO DAILY 30 days #30 tabs 04/17/22 Mental Status Exam Mental Status Exam Narrative: Pt is alert and oriented; behavior is cooperative, friendly on approach calm, can be disorganized, often standing in one place in hallway for extended periods of time; patient is not in distress; dressed in casual attire, clean cloths, adequate hygiene; mood is described as good affect less blunted, more expressive; eye contact appropriate; Speech is normal rate, volume and prosody and not pressured; some psychomotor retardation present; thought process is goal directed but concrete; Thought content is on discharge; some remanant of paranoid delusions; some anxiety over memory impairment; he is able to be pertinent to relevant topics when asked; denies any SI/HI. Does not seem internally preoccupied; and he denies AVH. Memory impairment significant Patients insight and judgment impaired but has improved some. Data Imaging Diagnostic Imaging Impressions Head CT 03/12/22 20:45 IMPRESSION: 1. No acute intracranial pathology. Brain MRI 03/29/22 13:15 IMPRESSION: 1. No demonstrated acute intracranial abnormalities. No abnormal intracranial enhancement. 2. Mild to moderate nonspecific white matter changes most commonly seen with underlying microangiopathy. Mild generalized cerebral volume loss. DS: Summary Hospital Course Hospital Course: HPI: Patient is a 57-year-old male on a 12b? with a history of hypothyroid disorder/thyroid coma, resents to the emergency room reportedly after his friends to come to a clinic, concern for his memory impairment, delusional thinking (about people being imposters), not taking medications and poor ADLs.? Hospital course: 03/15 Collateral helpful and reveals that he is having psychotic symptoms and is confused, possibly in the face of going off psychiatric medications; sister will try to get a hold of recent medication list; typewriters functional tester did try to call patient's PCP Dr. Hatfield but was unable to connect (ANNETTE Signed).? Hypothyroidism due to noncompliance with medication.? Memory loss present since myxedema coma. 03/16 will start Risperdal 03/17 patient says tired from Risperdal in the morning so will switch to bedtime; remains with paranoid delusions; memory impairment.? Very little insight Discussed case with team; discussed with nursing; reviewed vitals and WNL 03/18 no change in presentation; not open to further med changes.? Patient used to be on Depakote but does not want to take it and refuses it Will need to discuss further with team.? Patient seems to have memory impairment/cognitive dysfunction present since his stroke 2 years ago, Which according to collateral has not necessarily worsened.? Patient also has some has paranoid delusional thinking.? Seems to be a combination of both cognitive dysfunction and delusional thinking that brings him back to his house and violating restraining order.? Patient is not currently under the care of a neurologist; typewriters functional tester discussed this with him any agrees to go, however his sister says he typically has no interest in doctor's appointments or medication.? Patient lives at his sister's who cares for his needs; he has no history of violence or aggression towards anyone and is without any SI or HI.? 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 Although patient is not in imminent risk for harm to himself or others, he risks getting arrested in prosecuted for violating restraining order.? Need to talk with patient's ; will discuss further with team.? -Discussed case with nursing; reviewed vitals and WNL 03/19 patient remains with paranoid delusions and without insight; he plans to continue going back to the house since in his mind, it is his house.? Disorganized behavior in that he will stand [address] for long periods of time not engaging with others.? Says he feels a little tired from the Risperdal but continues to take it.? He says he will likely not take it once discharged. 03/20 patient remains without insight and has paranoid delusions.? Now having received collateral from his estranged Romina, it is more clear that patient's behaviors in the community are threatening.? Romina is now scared of him. He has tried to break into his 1/estranged 's house, has violated and no trespass order multiple times and has been subsequently arrested; the week prior to this admission, a Restraining order was enacted following a text patient sent to Romina which said she is not going to make it out alive. Patient than violated this restraining order.? Patient has very little to no insight regarding his behaviors.? Patient intends to continue going back to the house since he thinks it is his house and has paranoid, delusional concerns about his .? Patient says he will not take medication once he leaves.? At this time, patient is not safe for discharge. 03/21 no change; neuro consult pending Trevor 03/22 refused MRI since paranoid 03/26 no change in presentation 03/28 some improvement; for the first time he clearly articulates knowledge of the restraining order, the rules he must obey and the consequence of violating it. He says he will abide by it and that he has no choice. Pt thinks maybe his will let him come back to the house, but is open to the idea that he may be wrong. -consents to MRI he says he'll have to abide by the restraining order. Vocational Nursing Instructor inquires further, asking if pt will desist from going to the house. Pt corrects typewriters functional tester and says he's mandated to stay 50 feet away, which is written right on the order which I have in my jacket pocket. He says he will abide it and i have to...i have no choice...I don't want to go to care home. ? Of note, this is first time patient has clearly stated that he will abide by the restraining order and himself articulated that rules regarding restraining order.? Hopefully this guido increased insight possibly due to Risperdal which would be encouraging if there is a treatment that can help patient be more safe in the community. 03/29 went for MRI 03/30 perhaps a little less confused, but difficult to tell. still w/ paranoid, delusional thinking. Agreed to Invega IM but then refused 03/31: continue current tx plan. Attempt to encourage him to take invega sustenna and check TSH/T4 04/01: Continue tx plan. Check thyroid studies. 04/02 no change; continues to say he will respect the restraining order.? Will order repeat TSH 04/03 repeat TSH is grossly within normal limits and free T4 within normal limits ruling out hypothyroidism as a contributing factor to patient's confusion. 04/04 family meeting; remains difficult to assess what pt understands about his illness. Vocational Nursing Instructor shared how his worries of imposters are delusions but he is ambivalent 04/05 planned zoom meeting w/ estranged but unable to get ahold of her; increase risperdal to 6mg to see if can help with persistent delusions 04/08 continue current tx plan 04/09 patient does not seem to have improved much with Risperdal even at 6 mg; he agrees to medication change; will consider changing to Zyprexa 04/10 switch to Haldol; pt agrees to med switch 04/11 tolerated Haldol; agrees to EEG 04/12 EEG unremarkable; will increase Haldol to 10 mg 04/13 patient a little brighter and a little more expressive.? Patient continues to talk to his on the telephone.? Vocational Nursing Instructor and team discussed patients dynamic with his Romina. It occurs to typewriters functional tester and team that despite the fact that she got a restraining order on him, she is not really all that afraid of him; she continues to engage with him on the phone, almost daily (which ostensibly is a breach of the restraining order) and has even offered to give him a ride home from the hospital when discharged if he needs it (which she herself told typewriters functional tester).? While patient remains with poor insight regarding her continued and clearly expressed edict that he will not return to live with her, typewriters functional tester agrees with patient that she does give him mixed messages.? Will continue to assess patient; however despite his poor insight, he is more consistently saying that he will in fact obey the restraining order. 04/14 Continue current tx plan 04/15 continue current tx plan 04/16 patient is hoping to return home.? Still wonders if people can be imposters when he is talking to them on the phone, however he says when talking them [id number] he has no problem knowing in distinguishing who they are.? He reiterates that his confusion only exists when he's on the phone.? Patient maintains he no longer is worried about his sister trying to sell his house that that is not on his mind.? He also says that he will obey the restraining order.? Patient does not want long-acting injectable Haldol, however he says he will continue taking his medications, Haldol and levothyroxine and that he will follow-up with outpatient providers.? He plans to return to live at his sister's house.? Patient has remain on the unit for a thorough workup, including MRI, EEG, lab work all which have not produced any additional information that is currently helping to resolve his struggles.? Vocational Nursing Instructor discussed this with patient and his sister and both understand. Vocational Nursing Instructor also discussed follow-up for a full neuropsych evaluation and an appointment has been made with which patient says he will attend. Vocational Nursing Instructor talked with patient's sister who agrees that patient is a more alert and seems to be brighter.? She welcomes him back home to live at her house.? She understands that it is unclear at this time how patient will handle being back in the community but that he deserves a chance to prove that he can have safe behaviors and obey the restraining order.? Has no history of harm to others; he repeats his draw to the house is a combination of being drawn by his memories and concern for his or if the yard needs attending to.? Patient continues to have delusional ideas however they are less intense and some of them have resolved.? He has remained with appropriate behavior on the unit, in good behavioral and impulse control.? This time patient is not in imminent risk for harm to self or others and his request for discharge honored. FORMULATION/IMPRESSION: Patient is a 57-year-old male with no psychiatric history prior to 2020.? After patient had a myxedema coma reportedly in 2020 collateral reports beginning of memory impairment; also 2-3 suicide attempts, one for trying to cut neck with circular saw, resulting in patients first psychiatric admission.? Over the past 6-8 months, patient's memory and cognitive function has significantly worsened; patient has developed paranoid delusions and is without insight.? Due to a combination of paranoid delusional thinking and cognitive impairment, Patient has been increasingly harassing his estranged . The harassment has worsened and over the past few weeks and patient's estranged initially reported she was afraid of him after he tried to break into her house, violated a no trespass order, sent a cryptic text message and has violated a restraining order (text message initially thought to be threatening, but revealed to be more vague).? Patient does not seem to have any insight that his behaviors are harassing or frightening or that he is operating from paranoid delusions. It seems likely there is some relationship between between patient's paranoid delusions, his cognitive decline and history myxedema coma, given the clear timeline.? Over the course of his admission, it became more clear that patient's while concerned, is less afraid of patient.? He has no history of harm and mostly just stares at her house.? She says she does not know what he might do which is what worries her the most, however she continues to engage with him, talking with him on the phone while on the unit and has even offered him a ride on discharge, demonstrating that she is not all that afraid of him.? Regarding whether not patient needs a guardian, he may at some point, however, this has yet to be fully determined as patient is now on medication that may improve his functioning. 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 Haldol 10 mg DC Risperdal 2. 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 Alberts; appreciate recommendations hx of myxedema coma notes from [facility]:? 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 Patient says he has not been on that for almost a year and prescription history seems to support this.? He says he does not want and it is to be discontinued.? He denies any history of actually having a seizure but says this was started s/p thyroid coma as a prophylactic measure to prevent seizure Vocational Nursing Instructor talked with Romina, patient's estranged (ANNETTE signed): Romina reports that up until around 2020 when he had his coma and mini strokes, patient was is regular self without any overt psychiatric symptoms; only on typewriters functional tester's further inquiry did she say there was maybe some intermittent, minimal/mild paranoia.? She says the myxedema coma in 2020 was the most si gnificant event; she thinks the strokes were mild.? She says afterwards he had some rehab and some memory impairment but nowhere near as significant as it is now.? She says over the next 6 months his memory problems worsened.? At some point they and he went to live with his sister.? She says that for the past 8 months his memory has continued to deteriorate.? For the past year he has been calling her around 50 or 60 times a day and would send constant text messages all day long.? Would frequently show up at her house (she reports the house is fully hers, in her name).? She continues to care about him and hope that he would eventually stop coming over as she continually explained that their relationship was over.? Once, she let him into the house to see his nephew but then he would not leave an she said it took enormous effort to get him out the door.? Since then she has not let him in the house.? Despite this, he kept coming over to the house daily, knocking for hours at a time.? She knew patient was struggling and did not want him to add to his troubles and so hesitated to call the police.? However patient continued to come over and then actually started trying to get into the house, once using a credit card.? He would call her daughter and say he standing outside the house.? Patient would also stand for hours and front of the house.? Romina started to get scared.? He tried to get into the house about 3 weeks ago, she call the police who issued a no trespassing order.? He violated the order, was arrested and taken to [facility] for couple days; immediately on release he would back to the house and got arrested again.? Released again, he went over to the house and stood outside of it.? Last week, just before this admission, send a text message to Romina that sa id she is not going to make it out alive. After this the it systems analyst put a restraining order on patient.? He continued to violated, stating outside her house for hours; he left his sister's house and stayed at a friend's house near [place] and for hours and hours, in the rain, in the snow would marketing manager health communications front of her house, only going to his friend's house to sleep for a few hours and then to repeat the next day.? Romina says this is what resulted in this admission.? She says he accuses her of being an imposter on the phone; after interacting with the police he'll say they are not real purse seining hand, they are scammers...? She reiterates that he is getting scary and that she is now scared of him.? She is relieved to know that is in the hospital in hopes he can get help. Regarding history of psychiatric admissions, Romina says that patient was admitted to a psychiatric hospital at least 2 times following suicide attempts, which also occurred soon after his coma.? She says the the 1st attempt (not nec essarily resulting in admission) was an intentional overdose from a bottle of pills.? Second attempt was attempt to hang himself.? Third attempt patient tried to cut his neck with a circular saw.? Patient was admitted; required stitches only Of note,? 's reporting corroborates with both patient's sister and with patient's own account Time spent discussing smoking cessation with patient: 3 to 10 minutes Status at Discharge Functional status at discharge: independent ambulation Overall status at discharge: other (unclear what patients new baseline is) Time Spent with Patient Time attestation: Total time managing care of this patient today ____ minutes. Time spent: Less than 30 minutes Discharge Plan Discharge Anticipated Discharge Date/Time: 04/17/22 14:30 Patient Disposition: Home, Self-Care Discharge Diagnosis: Delusional disorder secondary to cognitive impairment Referrals: ANNA GONZALEZ [Other] - 1 Week [phone] [facility] will call to set up a time for a visit to assist with medication. ) [facility]: Kori Anderson [Other] - 04/19/22 11:00 am (Initial Diagnostic Evaluation for Therapy Appointment is by tele-health) [facility] [Other] - 05/14/22 1:00 pm (Initial Psychiatric Evaluation for medication management services Appointment is by tele-health.) [facility] [Other] - 06/13/22 11:00 am (Medication Management appointment with psychiatric provider Appointment is by tele-health ) [facility]Other[facility] - 04/24/22 (Referral for neuropsychological testing Patient and family should follow-up after discharge to determine status of referral and appointment scheduling.) Luigi Hatfield MD [Physician] - 1 Week (left message to call us back or call pt. with follow-up appointment.) Discharge Medications: New haloperidol 10 mg tablet 10 mg PO BEDTIME 30 Days Qty: 30 1RF Changed levothyroxine 200 mcg tablet 200 mcg PO DAILY 30 Days Qty: 30 1RF Discontinued levetiracetam 500 mg tablet 3 tab PO BID Discharge Orders: Discharge Order (Routine); Ordered 04/17/22 Ordered By: Teo Moralez Diet: Regular diet Activity on Discharge: As tolerated Stand Alone Forms: Patient Portal Discharge page, Community Support Care Plan Goals: Maintain mood and safe behaviors Take medications as prescribed Continue to pursue sobriety Practice coping skills Continue with outpatient providers and reach out to them as needed Health Concerns: Mood stability and behaviors Cognitive impairment Hypothyroid Plan of Treatment: Follow up with your PCP, psychiatric provider and other outpatient providers regarding above concerns Take medications as prescribed Assessment: Risk assessment at time of discharge:? Patient was interviewed prior to discharge and found to be fully oriented and without any SI or HI. Patient has insight and demonstrates good judgment in terms of wanting to pursue treatment. Patient is not in imminent risk of harm to self or others and has a safety plan that includes presenting to the closest ER or calling 911 if feeling unsafe.? Patient has been observed closely by nursing and unit staff throughout admission; patient has not engaged in any behaviors that suggest dangerousness to self or others and has demonstrated appropriate behaviors and impulse control Discharge Date/Time: 04/17/22 15:00
== END 2022-04-17 15:00 | disposition home or self-care (01) | DRG 760 ==
LOC: HO.ED 03-13 02:43 → HO.PM5 03-13 15:54
PROVIDERS: Nurse Practitioner Family; Admitting Provider Social Worker; Emergency Provider Internal Medicine; Visit Provider Psychiatry & Neurology Psychiatry
DX: F22 Delusional disorders (principal); E03.9 Hypothyroidism, unspecified; Z20.822 Contact with and (suspected) exposure to COVID-19; Z91.51 Personal history of suicidal behavior; Z88.0 Allergy status to penicillin; Z79.890 Hormone replacement therapy; Z79.899 Other long term (current) drug therapy
CPT/HCPCS: 0241U; 36415; 70450; 70553; 80048; 80053; 80061; 80076; 80307; 81001; 82607; 82746; 83036; 83690; 84439; 84443; 85025; 93005; 95816; 99285; A9585

== ENCOUNTER 2023-09-10 19:21 | Inpatient (IN) | payer OTHER, SELFPAY ==
--- NOTE | ~2023-09-10 | XR_ITS ---
EXAMINATION: XR CHEST 2 VIEWS HISTORY: R/O TB COMPARISON: There are no prior studies for comparison. FINDINGS: PA and lateral views of the chest are submitted. The lungs are expanded and clear. There is moderate biapical pleural thickening. There is no pleural effusion, pneumothorax, or pulmonary vascular congestion. The heart is normal in size. There is degenerative disc disease of the spine. XR/XR chest 2V IMPRESSION: Moderate biapical pleural thickening. The lungs are clear. Electronically signed by: Matias Cormier MD 04/02/2024 03:12 PM HUANG
--- NOTE | ~2023-09-10 | MR_ITS ---
EXAMINATION: MR BRAIN WITHOUT CONTRAST CLINICAL INFORMATION: Worsening cognition. History of coma. COMPARISON: Brain MRI from 03/29/2022. TECHNIQUE: MRI of the brain was obtained using routine sequences without contrast. FINDINGS: Evaluation of the anterior cranial fossae is limited by susceptibility artifact from the patient's dental amalgam. Within this limitation, there is no demonstrated focal restricted diffusion to suggest acute or subacute cerebral ischemia. No demonstrated evidence of acute or chronic hemorrhagic products on heme-sensitive imaging. Nonspecific scattered and partially confluent periventricular, deep white matter, and brainstem T2 FLAIR hyperintensities, most notably in the deep white matter of the right frontal lobe. Proportional prominence of the ventricles and sulcal spaces without evidence of obstructive hydrocephalus. No abnormal mass effect. No midline shift. Normal appearance of the pituitary gland. Normal positioning of the cerebellar tonsils. Normal arterial and venous vascular flow voids are present. Normal, homogeneous marrow signal. Moderate degenerative spondyloarthropathy of the visualized upper cervical spine. Mild mucosal thickening of the paranasal sinuses. No signal abnormalities within the mastoids. MR/MR brain wo con w neuroquant IMPRESSION: 1. No demonstrated acute intracranial abnormalities. 2. Chronic mild to moderate nonspecific white matter changes, most notably in the deep white matter of the right frontal lobe. Mild to moderate generalized cerebral volume loss.
[2023-09-10 19:41] VITALS: BP 135/103; PULSE 87; RESP 18; TEMP 36.6; O2SAT 97; BMI 28.9
[2023-09-10 20:07] LABS: MANUAL DIFF FLAG NO
[2023-09-10 20:08] LABS: Basophils Percent Auto 0.5 % (0-2); Eosinophils Absolute Auto 0.1 X10*3/uL (0.0-0.4); Eosinophils Percent Auto 1.1 % (0-4); Hematocrit 44.6 % (42.0-52.0); Hemoglobin 15.1 g/dl (14.0-18.0); Imm Gran Abs Auto 0.03 X10*3/uL (0.00-0.03); Imm Gran Pct Auto 0.3 % (0.0-0.4); Lymphocytes Absolute Auto 2.2 X10*3/uL (1.2-4.9); Lymphocytes Percent Auto 25.1 % (20-40); Mean Corpuscular HGB Conc 33.9 g/dl (31.0-36.0); Mean Corpuscular Hemoglobin 27.7 pg (27.0-33.0); Mean Corpuscular Volume 81.7 fL (80.0-98.0); Mean Platelet Volume 10.1 fL (9.4-12.4); Monocytes Absolute Auto 0.6 X10*3/uL (0.1-1.2); Monocytes Percent Auto 6.6 % (2-11); Neutrophils Absolute Auto 5.8 x10*3/uL (2.0-8.3); Neutrophils Percent Auto 66.4 % (45-73); Platelet Count 267 X10*3/uL (160-400); Red Blood Count 5.46 X10*6/uL (4.60-5.80); Red Cell Distribution Width 16.9 % (11.0-16.0); White Blood Count 8.8 X10*3/uL (4.8-10.8)
[2023-09-10 20:09] LABS: Appearance Urine Clear; Color Urine Dark Yellow; Glucose Urine UA 100 mg/dL (Negative); Leukocyte Esterase Urine Negative (Negative); Nitrite Urine Negative (Negative); Specific Gravity - Urine >= 1.030 (1.005-1.025); UMIC TRIGGER UACC YES; Urine Blood Negative (Negative); Urine Ketones Trace mg/dL (Negative); Urine Protein 30 (1+) mg/dL (Neg-Trace)
[2023-09-10 20:20] LABS: Amphetamine Screen Urine Not Detected (Not Detect); Barbiturates, Urine Not Detected (Not Detect); Benzodiazepines Screen Urine Not Detected (Not Detect); Buprenorphine Scr Not Detected (Not Detect); Cannabinoid Screen Urine Not Detected (Not Detect); Cocaine Screen Urine Not Detected (Not Detect); Fentanyl, urine Not Detected (Not Detect); Methadone Screen, Urine Not Detected (Not Detect); Opiate Screen Urine Not Detected (Not Detect); Oxycodone Screen Urine Not Detected (Not Detect); Phencyclidine Screen Urine Not Detected (Not Detect)
[2023-09-10 20:24] LABS: Alanine Aminotransferase 17 U/L (0-40); Albumin Level 4.9 g/dL (3.5-5.0); Alkaline Phosphatase 70 U/L (39-117); Anion Gap 18 (12-20); Aspartate Amino Transferase 16 U/L (5-37); Bilirubin Total 1.8 mg/dL (0.0-1.0); Blood Urea Nitrogen 22 mg/dL (9-16); Calcium 9.6 mg/dL (8.4-10.2); Carbon Dioxide 20 mmol/L (22-29); Chloride 104 mmol/L (96-108); Creatinine Clr Calc Pharmacy 66.7; Estimated Glomerular Filt Rate 56; Ethanol < 10 mg/dL; Glucose Random 197 mg/dL (60-115); Potassium 4.1 mmol/L (3.3-5.1); Sodium 138 mmol/L (135-145); Total Protein 7.9 g/dL (6.5-8.0)
[2023-09-10 20:29] LABS: Magnesium 2.2 mg/dL (1.6-2.6)
[2023-09-10 20:45] LABS: TSH reflex Free T4 74.14 uIU/mL (0.32-4.0)
[2023-09-10 21:26] LABS: Free T4 (Free Thyroxine) < 0.42 ng/dL (0.71-1.85)
[2023-09-10 22:28] LABS: Bacteria Urine None Seen (None Seen); Hyaline Casts Urine >20 /LPF (0-2); RBC Urine 0-2 /HPF (0-2); WBC Urine 0-5 /HPF (0-5)
--- NOTE | 2023-09-10 22:41 | ED.PSYCH ---
HPI - Psych General Chief Complaint: Psychiatric Symptoms Stated Complaint: sect.12 confused,combative Time Seen by Provider: 09/10/23 20:20 Source: patient and EMS Mode of arrival: EMS Limitations: no limitations History of Present Illness ED Provider: Dr. Gaye Philip HPI Narrative: Patient comes to the emergency room via ambulance. Patient was found wandering acting erratic by EMS, patient was brought to the ED. according to EMS, patient was released from retirement today. Patient denies any complaints. Seems that patient was getting his medications in the retirement. However, patient states that he was discharged today without any scripts. Patient states he had court today and he was released and since then patient has been wandering in the streets. Patient has no where to go. Patient denies SI or HI Related Data Previous Rx's ?Medication ?Instructions ?Recorded haloperidol 10 mg tablet 10 mg PO BEDTIME 30 days #30 tabs 04/17/22 levothyroxine 200 mcg tablet 200 mcg PO DAILY 30 days #30 tabs 04/17/22 Allergies Allergy/AdvReac Type Severity Reaction Status Date / Time amoxicillin [AMOXICILLIN] Allergy Mild VOMITING/ABD Verified 09/10/23 19:44 PAIN Review of Systems Review of Systems: Constitutional : No Weight loss, No Fever, No Chills, No Night Sweats, No Fatigue, No Malaise ENT/Mouth : No Hearing loss, No Ear Pain, No Nasal Congestion, No Sinus Pain, No Hoarseness, No sore throat, No Rhinorrhea, No Swallowing Difficulty Eyes: No Eye Pain, No Swelling, No Redness, No Foreign Body, No Discharge, No Vision Changes Cardiovascular : No Chest Pain, No SOB, No Dyspnea on Exertion, No Orthopnea, No Edema, No Palpitations Respiratory : No Cough, No Sputum, No Wheezing, No Smoke Exposure, No Dyspnea Gastrointestinal : No Nausea, No Vomiting, No Diarrhea, No Constipation, No abdominal Pain, No Hematochezia, No Melena Genitourinary : no irregular bleeding, No Dysuria, No Urinary Frequency, No Hematuria, No Urinary Incontinence, No Urgency, No Flank Pain, No Urinary Flow Changes, No Hesitancy Musculoskeletal : No joint pain, No Myalgias, No Joint Swelling Skin : No Skin Lesions, No rash Neuro : No Weakness, No Numbness, No Paresthesias, No Loss of Consciousness, No Dizziness, No Headache Psych : No Anxiety/Panic, No Depression, No SI/HI/AH/VH, patient states has no medications Heme/Lymph: No Bruising, No Bleeding,No Lymphadenopathy Endocrine : No Polyuria, No Polydipsia, No Temperature Intolerance [facility] Past Medical History Medical History Hypothyroidism Seizures Social History Social History Household Members: Unknown / Unable to assess Housing: Unknown / Unable to assess Unable to assess alcohol history related to: Refusing to respond Patient Tobacco Use Status: Tobacco use Unknown Advance Directives: No Advance Directives Information Provided: No Do you have a plan to hurt others: No Plan service: No Sexual orientation: Straight/Heterosexual Physical Exam Vital Signs: Vital Signs: Last Vital Signs Temp 97.8 F 09/10/23 19:41 Pulse 87 09/10/23 19:41 Resp 18 09/10/23 19:41 BP 135/103 H 09/10/23 19:41 Pulse Ox 97 09/10/23 19:41 O2 Del Method Room Air 09/10/23 19:41 BMI result Body Mass Index 28.9 Const: Other: Appearance: Alert. Oriented X3. No acute distress. Disheveled Eyes: Pupils equal, round and reactive to light. ENT: Pharynx normal. Neck: Normal inspection. Neck supple. No lymph nodes noted. No crepitus CVS: Normal heart rate and rhythm. Pulses normal. Normal S1 and S2 Respiratory: No respiratory distress. Breath sounds normal. No Wheezing. No rales Abdomen: Soft and nontender. No rigidity. No distention. Skin: Skin warm and dry. Normal skin color. Normal skin turgor. Extremities: No lower extremity edema. No Lacerations. No Rash Neuro: Oriented X 3. No motor deficit. No sensory deficit. Moving all extremities. No slurred speech. CN 2 through 12 grossly intact Psych: calm, cooperative, flat affect, slow to answer, polite Medications Administered Generic Name Dose Route Start Last Admin Trade Name Freq PRN Reason Stop Dose Admin Haloperidol 10 mg 09/10/23 22:45 09/10/23 23:07 Haloperidol 5 Mg Tablet PO 10 mg BEDTIME MANAS Administration Medical Decision Making Medical Decision Making [facility] Narrative: -my interpretation of labs, hematology and chemistry at baseline. TSH is 74.1, free T4 less than 0.42. Patient is currently taking 200 mcg of levothyroxine. It is possible that there is a compliance issue with his medication. At this time, we will not change his medication. Admitted, patient can be observed to see if the patient is actually taking his p.o. medications. Otherwise, patient will need an endocrinology follow-up since he has already on a fairly high dose of levothyroxine. Urine toxicology is negative, ETOH level negative -patient's med rec has been done, patient takes 10 mg p.o. Haldol at bedtime. -care team consult pending -23:10: Care team evaluated the patient, patient needs inpatient level of care. Patient is agreeable for inpatient treatment. Bed search in progress Differential Diagnosis Differential Diagnoses: The differential diagnosis associated with the presentation includes (Psychosis, cognitive and behavioral changes, delusional disorder, hypothyroidism) Admission/Observation Consideration of admission/observation: Escalation of care including admission/observation considered (Patient is under physician observation waiting to be seen by the care team to determine patient's disposition) Lab Data MDM Lab Attestation statement: I reviewed the patient's lab results. 09/10/23 20:00 09/10/23 20:00 Labs: Lab Results 09/10/23 09/10/23 Range/Units 19:55 20:00 WBC 8.8 (4.8-10.8) X10*3/uL RBC 5.46 (4.60-5.80) X10*6/uL Hgb 15.1 (14.0-18.0) g/dl Hct 44.6 (42.0-52.0) % MCV 81.7 (80.0-98.0) fL MCH 27.7 (27.0-33.0) pg MCHC 33.9 (31.0-36.0) g/dl RDW 16.9 H (11.0-16.0) % Plt Count 267 D (160-400) X10*3/uL MPV 10.1 (9.4-12.4) fL Immature Gran % (Auto) 0.3 (0.0-0.4) % Neut % (Auto) 66.4 (45-73) % Lymph % (Auto) 25.1 (20-40) % [place] % (Auto) 6.6 (2-11) % Eos % (Auto) 1.1 (0-4) % Baso % (Auto) 0.5 (0-2) % Lymph # (Auto) 2.2 (1.2-4.9) X10*3/uL [place] # (Auto) 0.6 (0.1-1.2) X10*3/uL Eos # (Auto) 0.1 (0.0-0.4) X10*3/uL Baso # (Auto) 0.0 (0.0-0.2) X10*3/uL Abs Immat Gran (auto) 0.03 (0.00-0.03) X10*3/uL Absolute Neuts (auto) 5.8 (2.0-8.3) x10*3/uL Absolute Nucleated RBC 0.000 (0.0-0.012) X10*3/uL Nucleated RBC % (auto) 0.0 (0.0-0.2) /100WBC Sodium 138 (135-145) mmol/L Potassium 4.1 (3.3-5.1) mmol/L Chloride 104 (96-108) mmol/L Carbon Dioxide 20 L (22-29) mmol/L Anion Gap 18 (12-20) BUN 22 H (9-16) mg/dL Creatinine 1.32 (0.5-1.4) mg/dL Estim Creat Clear Calc 66.7 Estimated GFR 56 Random Glucose 197 H (60-115) mg/dL Calcium 9.6 (8.4-10.2) mg/dL Magnesium 2.2 (1.6-2.6) mg/dL Total Bilirubin 1.8 H (0.0-1.0) mg/dL AST 16 (5-37) U/L ALT 17 (0-40) U/L Alkaline Phosphatase 70 (39-117) U/L Total Protein 7.9 (6.5-8.0) g/dL Albumin 4.9 (3.5-5.0) g/dL TSH 74.14 H (0.32-4.0) uIU/mL Free T4 < 0.42 L (0.71-1.85) ng/dL Urine Color Dark Yellow Urine Appearance Clear Urine pH 5.0 (5.0-9.0) Ur Specific [place] >= 1.030 H (1.005-1.025) Urine Protein 30 (1+) H (Neg-Trace) mg/dL Urine Glucose (UA) 100 H (Negative) mg/dL Urine Ketones Trace (Negative) mg/dL Urine Blood Negative (Negative) Urine Nitrite Negative (Negative) Ur Leukocyte Esterase Negative (Negative) Urine RBC 0-2 (0-2) /HPF Urine WBC 0-5 (0-5) /HPF Ur Squamous Epith Cells 3-5 (0-2) /HPF Urine Bacteria None Seen (None Seen) Hyaline Casts >20 (0-2) /LPF Urine Opiates Screen Not Detected (Not Detect) Ur Buprenorphine Scrn Not Detected (Not Detect) ng/mL Ur Oxycodone Screen Not Detected (Not Detect) ng/mL Urine Methadone Screen Not Detected (Not Detect) ng/mL Urine Fentanyl Screen Not Detected (Not Detect) Ur Barbiturates Screen Not Detected (Not Detect) Ur Phencyclidine Scrn Not Detected (Not Detect) Ur Amphetamines Screen Not Detected (Not Detect) U Benzodiazepines Scrn Not Detected (Not Detect) Urine Cocaine Screen Not Detected (Not Detect) U Marijuana (THC) Screen Not Detected (Not Detect) Ethyl Alcohol < 10 mg/dL Critical Care Time Critical Care Time Critical Care Time: Yes Total Critical Care Time: 30 Attestation: I have personally provided critical care time. Time includes review of lab data, radiology results, discussion with consultants, and monitoring for potential decompensation. Intervention performed as documented. Discharge Plan Discharge Clinical Impression: Acute psychosis Patient Disposition: Still a Patient Prescriptions: No Action haloperidol 10 mg tablet 10 mg PO BEDTIME 30 Days Qty: 30 1RF levothyroxine 200 mcg tablet 200 mcg PO DAILY 30 Days Qty: 30 1RF Interventions: [place]-Suicide Risk Severity Scale Last Done: 09/10/23 23:04 Print Language: Thai
[2023-09-10] MEDS: HaloperidoL 5 MG TABLET 10 MG PO (23:07)
--- NOTE | 2023-09-11 | ECG_ITS ---
Test Reason : check QT Blood Pressure : / mmHG Vent. Rate : 071 BPM Atrial Rate : 071 BPM P-R Int : 158 ms QRS Dur : 090 ms QT Int : 390 ms P-R-T Axes : 067 001 084 degrees QTc Int : 423 ms Normal sinus rhythm Nonspecific T wave abnormality Abnormal ECG When compared with ECG of 12-MAR-2022 23:12, Incomplete right bundle branch block is no longer Present Referred By: Gaye Philip Electronically Signed By:Chirag Burnett
[2023-09-11 06:06] VITALS: BP 99/71; PULSE 77; RESP 18; TEMP 36.8; O2SAT 99
--- NOTE | 2023-09-11 06:11 | PC.NURSE ---
Patient slept through the night, no distress observed/reported, no behavior and safety concerns, patient was assessed by care team, disposition is section 12 inpatient bed search, meds and meals compliant, will contineu to monitor
--- NOTE | 2023-09-11 07:31 | PC.NURSE ---
Assumed care of patient at 0645, patient appears to be in no apparent distress this am, sitting up at desk eating breakfast. Offers no complaints to this RN. Continue plan of care for inpatient bedsearch this am
[2023-09-11] MEDS: Levothyroxine Sodium 200 MCG TABLET PO (10:00)
[2023-09-11 12:02] VITALS: BMI 30.6
[2023-09-11 12:03] VITALS: BP 111/77; PULSE 65; RESP 16; TEMP 36.5; O2SAT 100
--- NOTE | 2023-09-11 13:09 | P.HPPS_ITS ---
HPI Date of Service: 09/11/23 Chief Complaint: CRISIS Sources of Information: patient interviewed, chart reviewed and crisis/core team assessment reviewed HPI Subjective Notes: Diehl Warning and Conditional Voluntary Narrative: Patient is a 58 year old male with hx of Schizoaffective d/o and hypothyroid disorder/thyroid coma, stroke and brain aneurysm, who was brought to [facility] ER on a Section 12 d/t disorganized behavior, concern for his memory impairment, medications noncompliance and poor ADLs. Per crisis report, pt presented to [facility] ER on Section 12 from the community for disorganized behavior, paranoia, confusion and not taking his medications. Patient was recently released from halfway and have not been compliant with his medications. Patient has hx of paranoia at baseline but presented to ER with altered mental status and disoriented to place or time. Patient denies any complaints. Pt reported he left halfway after his court hearing and did not have scripts. Pt denies SI/HI During admission assessment, pt alert and oriented, calm and cooperative. Disheveled, slow to respond to questions, intense eye contact at times. Pt reports he feels okay but have poor memory ; pt stated, I was walking around [place] trying to find my friends house. Then I think my friend called a Section 12 on me. I wasn't doing anything . Pt poor historian regarding his past psychiatric treatment. He reports he was in a psychiatric hospital in [place] and then just released from halfway because I think my has a restraining order on me . pt denies hx of substance abuse. Reviewed past medications; pt agreed to continue Haldol and Synthroid. Pt denies SI/HI/VH/AH. Please see Dr. Moralez's notes from last admission to [facility] (04/2022) regarding previous treatment. Patient gave verbal consent of speaking to his sister Ros. T/W spoke to patient's sister, Ros, via phone. Ros stated, patient has been in [facility] for the past three months, he was released and went to [facility] for not appearing in court for his restraining order . Pt's sister reports, pt was diagnosed with Schizoaffective d/o while at [facility]. Pt was released from [facility] yesterday. Patient does not have hx of aggressive behavior towards others. 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 Past Psychiatric History: pt does not currently have outpatient psychiatric providers. Med trials: Risperidal, mirtazepine, depakote, lamictal, haldol Per last admission: reports 2x psychiatric hospitalizations, hx overdose of pills; he says he was not really tried to kill himself but just needed someone to talk to and the admission was helpful. Medical Evaluation Reviewed: Yes [facility] Medical History Hypothyroidism Seizures Family History: Reports extensive family history of alcoholism Social History: Patient from his ; has 2 adult children. Homeless Dropped out of school in the 10th grade to work Grew up with his mother Little historical contact with his father who is now Patient is the youngest of 5 siblings Substance History: denies Trauma History: Denies Diagnostics Vital Signs (24Hr): Vital Signs - 24 hr 09/10/23 19:41 09/11/23 06:06 09/11/23 12:03 Temperature 97.8 F 98.3 F 97.7 F Pulse Rate 87 77 65 Respiratory Rate 18 18 16 Blood Pressure 135/103 H 99/71 111/77 Pulse Oximetry 97 99 100 Oxygen Delivery Method Room Air Room Air Room Air BMI result Body Mass Index 30.6 Labs 09/10/23 20:00 09/12/23 15:08 Labs: Laboratory Results - last 48 hr 09/10/23 09/10/23 19:55 20:00 WBC 8.8 RBC 5.46 Hgb 15.1 Hct 44.6 MCV 81.7 MCH 27.7 MCHC 33.9 RDW 16.9 H Plt Count 267 D MPV 10.1 Immature Gran % (Auto) 0.3 Neut % (Auto) 66.4 Lymph % (Auto) 25.1 [place] % (Auto) 6.6 Eos % (Auto) 1.1 Baso % (Auto) 0.5 Lymph # (Auto) 2.2 [place] # (Auto) 0.6 Eos # (Auto) 0.1 Baso # (Auto) 0.0 Abs Immat Gran (auto) 0.03 Absolute Neuts (auto) 5.8 Absolute Nucleated RBC 0.000 Nucleated RBC % (auto) 0.0 Sodium 138 Potassium 4.1 Chloride 104 Carbon Dioxide 20 L Anion Gap 18 BUN 22 H Creatinine 1.32 Estim Creat Clear Calc 66.7 Estimated GFR 56 Random Glucose 197 H Calcium 9.6 Magnesium 2.2 Total Bilirubin 1.8 H AST 16 ALT 17 Alkaline Phosphatase 70 Total Protein 7.9 Albumin 4.9 TSH 74.14 H Free T4 < 0.42 L Urine Color Dark Yellow Urine Appearance Clear Urine pH 5.0 Ur Specific [place] >= 1.030 H Urine Protein 30 (1+) H Urine Glucose (UA) 100 H Urine Ketones Trace Urine Blood Negative Urine Nitrite Negative Ur Leukocyte Esterase Negative Urine RBC 0-2 Urine WBC 0-5 Ur Squamous Epith Cells 3-5 Urine Bacteria None Seen Hyaline Casts >20 Urine Opiates Screen Not Detected Ur Buprenorphine Scrn Not Detected Ur Oxycodone Screen Not Detected Urine Methadone Screen Not Detected Urine Fentanyl Screen Not Detected Ur Barbiturates Screen Not Detected Ur Phencyclidine Scrn Not Detected Ur Amphetamines Screen Not Detected U Benzodiazepines Scrn Not Detected Urine Cocaine Screen Not Detected U Marijuana (THC) Screen Not Detected Ethyl Alcohol < 10 Meds/Allergies Allergies Allergies Allergy/AdvReac Type Severity Reaction Status Date / Time amoxicillin [AMOXICILLIN] Allergy Mild VOMITING/ABD Verified 09/10/23 19:44 PAIN Mental Status Exam Mental Status Exam Patient Appearance: Disheveled Patient Orientation: Person, Place, Time and Situation Level of Consciousness: Awake Patient Behavior: Cooperative and Confused Mood Description: Flat Affect Description: Flat Ability to Follow Directions: Fair Speech Pattern: Soft-Spoken and Delayed 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: Director Of Laboratory Operations Impaired 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: None Thought Process: Linear and Confusion Thought Content: positive for Linear and positive for Logical Judgement: Poor Assessment & Plan Assessment & Plan (1) Schizoaffective disorder: Status: Acute Code(s): F25.9 - Schizoaffective disorder, unspecified Plan Patient is a 58 year old male with hx of Schizoaffective d/o and hypothyroid disorder/thyroid coma, stroke and brain aneurysm, who was brought to [facility] ER on a Section 12 d/t disorganized behavior, concern for his memory impairment, medications noncompliance and poor ADLs. Plan: CV 15 minute safety checks Continue home medications: Haldol 10mg PO daily Synthroid 200mcg PO daily Obtain labs; A1C/POCs Obtain collateral from sister Obtain records from last hospitalization. MOCA Referral for [facility] services if patient is agreeable. encourage medication compliance;consider VARGAS discharge planning Patient educated on: diagnosis and medication risk/benefits Informed Consent: further education needed Reason for continued inpatient stay Substantial Risk for: med/psych decompensation Statement Statement: I have reviewed the history and physical and performed a pertinent examination on my patient. No changes have occurred unless specified. If the History and Physical was not performed prior to admission, the Hospitalist's service will be consulted for completing the admission physical. Time Spent With Patient Time: Total time managing care of this patient today _60___ minutes.
--- NOTE | 2023-09-11 13:35 | PC.ADMIT ---
Joe is admitted to at 1200 from? [facility] on a 12A for crisis. He signed a conditional voluntary after arrival to unit. Written report states that he was found wandering the streets behaving strangely and EMS brought him to ED. Joe was reportedly released from [facility] the day before admission and had nowhere to go & no medications. He is alert, calm & cooperative with admission process. Oriented to self & place but does not know the date. He knows it's summer 2023. Joe's affect is flat, with an inexpressive gaze during interview. Thought process seems disorganized & he endorses feeling forgetful and disoriented at times. Joe says that 10 years ago he took pills in a suicide attempt & his found him. He regretted the attempt and was glad to still be alive. He denies current SI/HI/AVH. He endorses hearing bad voices while he sleeps at night ( so I guess they're dreams ). Joe denies difficulty sleeping. I sleep a lot to escape reality. Joe states that he thinks he was at a psychiatric facility in [place] prior to being sent to [facility], however, unclear of any details. Joe's psychiatric history unknown at this time. Initially Joe said he was sitting in a friend's living room prior to admission, then the police showed up & called ambulance.. When asked who the friend was, he stated that he didn't know the person. Joe's recollection of events is likely inaccurate. Appetite is good. Joe denies any alcohol or substance use. Urine tox was negative. He quit smoking cigarettes 20 years ago. Changeover & skin check done without issue. He denies other physical complaint. Patient oriented to the unit and is placed on 15 minute checks for safety. He is interested in attending groups while here.
[2023-09-11] MEDS: HaloperidoL 5 MG TABLET 10 MG PO (15:51)
[2023-09-11 20:00] VITALS: BP 108/68; PULSE 65; RESP 16; TEMP 36.4; O2SAT 97
[2023-09-11 20:02] LABS: Glucose, Whole Blood 287 mg/dL (60-115)
[2023-09-11] MEDS: traZODone HCL 50 MG TABLET PO (23:06)
[2023-09-11] MEDS: hydrOXYzine HCL 25 MG TABLET PO (23:06)
[2023-09-12 07:35] VITALS: PULSE 68; RESP 16; TEMP 36.4; O2SAT 99
[2023-09-12 08:36] LABS: Glucose, Whole Blood 204 mg/dL (60-115)
[2023-09-12] MEDS: Levothyroxine Sodium 200 MCG TABLET PO (10:00)
[2023-09-12] MEDS: HaloperidoL 5 MG TABLET 10 MG PO (10:01)
--- NOTE | 2023-09-12 10:33 | PC.NURSE ---
Pt completed the [place] assessment with ticket writer. Pt scored a 8 out of 30 indicating a severe cognitive impairment.
[2023-09-12 15:44] LABS: Estimated Average Glucose 217 mg/dL; Hemoglobin A1c % 9.2 % (<6.0); Total Hemoglobin (HGBA1C) 3677.3048 umol/L
[2023-09-12 15:54] LABS: Alanine Aminotransferase 34 U/L (0-40); Albumin Level 4.4 g/dL (3.5-5.0); Alkaline Phosphatase 69 U/L (39-117); Anion Gap 15 (12-20); Aspartate Amino Transferase 12 U/L (5-37); Bilirubin Total 0.9 mg/dL (0.0-1.0); Blood Urea Nitrogen 20 mg/dL (9-16); Calcium 10.4 mg/dL (8.4-10.2); Carbon Dioxide 25 mmol/L (22-29); Chloride 101 mmol/L (96-108); Cholesterol 256 mg/dL (<200); Creatinine Clr Calc Pharmacy 61.5; Estimated Glomerular Filt Rate 50; Glucose Fasting 390 mg/dL (60-99); HDL Cholesterol 37 mg/dL (>40); Potassium 4.1 mmol/L (3.3-5.1); Sodium 137 mmol/L (135-145); Total Protein 7.2 g/dL (6.5-8.0); Triglycerides 474 mg/dL (<150)
[2023-09-12 17:56] LABS: Glucose, Whole Blood 425 mg/dL (60-115)
[2023-09-12 20:15] VITALS: BP 107/58; PULSE 79; RESP 14; TEMP 36.6; O2SAT 95
[2023-09-12] MEDS: traZODone HCL 50 MG TABLET PO (21:17)
[2023-09-12] MEDS: hydrOXYzine HCL 25 MG TABLET PO (21:18)
[2023-09-12] MEDS: Insulin Lispro 100 UNIT/ML 3 ML VIAL SUBCUT ×2 (21:21→22:26)
[2023-09-12 21:26] LABS: Glucose, Whole Blood > 600 mg/dL (60-115)
[2023-09-12 22:12] LABS: Glucose, Whole Blood 592 mg/dL (60-115)
--- NOTE | 2023-09-12 22:57 | HO.PSYCHPN ---
Subjective Subjective Date of Service: 09/05/23 Reason For Visit: CRISIS Subjective Notes: Conditional Voluntary Medical Problems Affecting Mental Status: Yes Interim History: Pt seen with initially with his mother present. Patient cognition was slowed the year but after an extended period of time often could not remember recent mood these tells her was quite vague. He did not always had [facility] and at correction. Could not explain why been present how long he had been at the hospital and reasons for his being in correction and then release and taken to a psychiatric hospital. Patient's chart reviewed. History of severe hypothyroidism and chronic noncompliance with medication treatment. He as best determine was at the [facility] for over 2 and half months has been on Haldol reportedly details of admission are not fully known at this time patient does have ongoing paranoia fear made his sister for a that 1 point she did get an order protection. Patient states he has never been directly threatening home day 1. 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: None Thought Process: Linear and Confusion Thought Content: positive for Linear and positive for Logical Judgement: Poor Diagnostics Vital Signs (24Hr): Vital Signs - 24 hr 09/12/23 07:35 09/12/23 20:15 Temperature 97.5 F 97.8 F Pulse Rate 68 79 Respiratory Rate 16 14 Blood Pressure 107/58 L Pulse Oximetry 99 95 Oxygen Delivery Method Room Air Room Air BMI result Body Mass Index 30.6 Labs 09/10/23 20:00 09/12/23 15:08 Labs: Laboratory Results - last 48 hr 09/11/23 09/12/23 09/12/23 19:58 08:27 15:08 Sodium 137 Potassium 4.1 Chloride 101 Carbon Dioxide 25 Anion Gap 15 BUN 20 H Creatinine 1.47 H Estim Creat Clear Calc 61.5 Estimated GFR 50 POC Glucose 287 H 204 H Fasting Glucose 390 H* Estimat Average Glucose 217 Hemoglobin A1c % 9.2 H Calcium 10.4 H D Total Bilirubin 0.9 AST 12 ALT 34 Alkaline Phosphatase 69 Total Protein 7.2 Albumin 4.4 Triglycerides 474 H Cholesterol 256 H LDL Cholesterol, Calc TNP HDL Cholesterol 37 L 09/12/23 09/12/23 09/12/23 17:52 21:14 22:08 Sodium Potassium Chloride Carbon Dioxide Anion Gap BUN Creatinine Estim Creat Clear Calc Estimated GFR POC Glucose 425 H* > 600 H* 592 H* Fasting Glucose Estimat Average Glucose Hemoglobin A1c % Calcium Total Bilirubin AST ALT Alkaline Phosphatase Total Protein Albumin Triglycerides Cholesterol LDL Cholesterol, Calc HDL Cholesterol Medications Medications Current Medications Acetaminophen (Acetaminophen 325 Mg Tablet) 650 mg PO Q6H PRN PRN Reason: Headache/Pain Mild Scale (1-3) Al Hydroxide/Mg Hydroxide (Magnesium Hydrox/Alum Hydrox 30 Ml Oral.Susp) 30 ml PO Q6H PRN PRN Reason: Heartburn/Nausea Benztropine Mesylate (Benztropine Mesylate 0.5 Mg Tablet) 0.5 mg PO TID PRN PRN Reason: Extrapyramidal Effects Haloperidol (Haloperidol 5 Mg Tablet) 10 mg PO DAILY [facility] Last Admin: 09/12/23 10:01 Dose: 10 mg Hydroxyzine HCl (Hydroxyzine Hcl 25 Mg Tablet) 25 mg PO Q6H PRN PRN Reason: Anxiety Last Admin: 09/12/23 21:18 Dose: 25 mg Insulin Human Lispro (Insulin Lispro 100 Unit/Ml 3 Ml Vial) 0 unit SUBCUT QIDACHS [facility]; Protocol Last Admin: 09/12/23 22:26 Dose: 10 unit Levothyroxine Sodium (Levothyroxine Sodium 200 Mcg Tablet) 200 mcg PO DAILY [facility] Last Admin: 09/12/23 10:00 Dose: 200 mcg Magnesium Hydroxide (Milk Of Magnesia 30 Ml Oral.Susp) 30 ml PO DAILY PRN PRN Reason: Constipation Nicotine Polacrilex (Nicotine Polacrilex 2 Mg Gum) 4 mg BUCCAL Q2H PRN PRN Reason: Nicotine Cravings Trazodone HCl (Trazodone Hcl 50 Mg Tablet) 50 mg PO BEDTIME MRX1 PRN PRN Reason: Insomnia Last Admin: 09/12/23 21:17 Dose: 50 mg Allergies Allergies Allergy/AdvReac Type Severity Reaction Status Date / Time amoxicillin [AMOXICILLIN] Allergy Mild VOMITING/ABD Verified 09/10/23 19:44 PAIN Assessment & Plan Assessment & Plan (1) Schizoaffective disorder: Status: Acute Code(s): F25.9 - Schizoaffective disorder, unspecified (2) Hypothyroidism: Status: Acute Code(s): E03.9 - Hypothyroidism, unspecified (3) Type 2 diabetes mellitus: Status: Acute Code(s): E11.9 - Type 2 diabetes mellitus without complications Plan Patient is a 58 year old male with hx of Schizoaffective d/o and hypothyroid disorder/thyroid coma, stroke and brain aneurysm, who was brought [place] [facility] on a Section 12 d/t disorganized behavior, concern for his memory impairment, medications noncompliance and poor ADLs. Plan: CV 15 minute safety checks Continue home medications: Haldol 10mg PO daily Synthroid 200mcg PO daily Obtain labs; A1C/POCs Obtain collateral from sister Obtain records from last hospitalization. MOCA Referral for DMH services if patient is agreeable. encourage medication compliance;consider VARGAS discharge planning 09/12/2023 Elevated fasting blood sugar elevated hemoglobin A1c 9.2 med consult placed put in point of care needed will start metformin Would benefit from clarity over recent hospitalization what this were done details regarding treatment continue Haldol unclear if patient has Healthcare proxy his [place] was low slowed cognition with poor details in depth at times during blankly regarding making judgments Unclear if any of this relates to past coma or 2 hypothyroidism. He does seem more impaired than when last seen unclear when last imaging was. Continue Haldol sitter neuro indira involvement regarding diagnostic picture. Patient does remain paranoid blunted suspicious apathetic. He might benefit from longer-term placement if available and appropriate at a later time involved DMH involvement would be quite helpful Reason for continued inpatient stay Substantial Risk for: harm to others, rapid decompensation and med/psych decompensation Time Spent With Patient Time: Total time managing care of this patient today ____ minutes.
[2023-09-13 07:36] VITALS: BP 101/58; PULSE 64; RESP 14; TEMP 36.5; O2SAT 98
--- NOTE | 2023-09-13 08:10 | HO.PSYCHPN ---
Subjective Subjective Reason For Visit: CRISIS Diagnostics Vital Signs (24Hr): Vital Signs - 24 hr 09/12/23 20:15 09/13/23 07:36 Temperature 97.8 F 97.7 F Pulse Rate 79 64 Respiratory Rate 14 14 Blood Pressure 107/58 L 101/58 L Pulse Oximetry 95 98 Oxygen Delivery Method Room Air Room Air BMI result Body Mass Index 30.6 Labs 09/10/23 20:00 09/12/23 15:08 Labs: Laboratory Results - last 48 hr 09/11/23 09/12/23 09/12/23 19:58 08:27 15:08 Sodium 137 Potassium 4.1 Chloride 101 Carbon Dioxide 25 Anion Gap 15 BUN 20 H Creatinine 1.47 H Estim Creat Clear Calc 61.5 Estimated GFR 50 POC Glucose 287 H 204 H Fasting Glucose 390 H* Estimat Average Glucose 217 Hemoglobin A1c % 9.2 H Calcium 10.4 H D Total Bilirubin 0.9 AST 12 ALT 34 Alkaline Phosphatase 69 Total Protein 7.2 Albumin 4.4 Triglycerides 474 H Cholesterol 256 H LDL Cholesterol, Calc TNP HDL Cholesterol 37 L 09/12/23 09/12/23 09/12/23 17:52 21:14 22:08 Sodium Potassium Chloride Carbon Dioxide Anion Gap BUN Creatinine Estim Creat Clear Calc Estimated GFR POC Glucose 425 H* > 600 H* 592 H* Fasting Glucose Estimat Average Glucose Hemoglobin A1c % Calcium Total Bilirubin AST ALT Alkaline Phosphatase Total Protein Albumin Triglycerides Cholesterol LDL Cholesterol, Calc HDL Cholesterol Medications Medications Current Medications Acetaminophen (Acetaminophen 325 Mg Tablet) 650 mg PO Q6H PRN PRN Reason: Headache/Pain Mild Scale (1-3) Al Hydroxide/Mg Hydroxide (Magnesium Hydrox/Alum Hydrox 30 Ml Oral.Susp) 30 ml PO Q6H PRN PRN Reason: Heartburn/Nausea Benztropine Mesylate (Benztropine Mesylate 0.5 Mg Tablet) 0.5 mg PO TID PRN PRN Reason: Extrapyramidal Effects Haloperidol (Haloperidol 5 Mg Tablet) 10 mg PO DAILY [facility] Last Admin: 09/12/23 10:01 Dose: 10 mg Hydroxyzine HCl (Hydroxyzine Hcl 25 Mg Tablet) 25 mg PO Q6H PRN PRN Reason: Anxiety Last Admin: 09/12/23 21:18 Dose: 25 mg Insulin Human Lispro (Insulin Lispro 100 Unit/Ml 3 Ml Vial) 0 unit SUBCUT QIDACHS [facility]; Protocol Last Admin: 09/12/23 22:26 Dose: 10 unit Levothyroxine Sodium (Levothyroxine Sodium 200 Mcg Tablet) 200 mcg PO DAILY [facility] Last Admin: 09/12/23 10:00 Dose: 200 mcg Magnesium Hydroxide (Milk Of Magnesia 30 Ml Oral.Susp) 30 ml PO DAILY PRN PRN Reason: Constipation Nicotine Polacrilex (Nicotine Polacrilex 2 Mg Gum) 4 mg BUCCAL Q2H PRN PRN Reason: Nicotine Cravings Trazodone HCl (Trazodone Hcl 50 Mg Tablet) 50 mg PO BEDTIME MRX1 PRN PRN Reason: Insomnia Last Admin: 09/12/23 21:17 Dose: 50 mg Allergies Allergies Allergy/AdvReac Type Severity Reaction Status Date / Time amoxicillin [AMOXICILLIN] Allergy Mild VOMITING/ABD Verified 09/10/23 19:44 PAIN Assessment & Plan Assessment & Plan (1) Schizoaffective disorder: Status: Acute Code(s): F25.9 - Schizoaffective disorder, unspecified (2) Hypothyroidism: Status: Acute Code(s): E03.9 - Hypothyroidism, unspecified (3) Type 2 diabetes mellitus: Status: Acute Code(s): E11.9 - Type 2 diabetes mellitus without complications Plan Patient is a 58 year old male with hx of Schizoaffective d/o and hypothyroid disorder/thyroid coma, stroke and brain aneurysm, who was brought to [facility] on a Section 12 d/t disorganized behavior, concern for his memory impairment, medications noncompliance and poor ADLs. Plan: CV 15 minute safety checks Continue home medications: Haldol 10mg PO daily Synthroid 200mcg PO daily Obtain labs; A1C/POCs Obtain collateral from sister Obtain records from last hospitalization. MOCA Referral for DMH services if patient is agreeable. encourage medication compliance;consider VARGAS discharge planning 09/12/2023 Elevated fasting blood sugar elevated hemoglobin A1c 9.2 med consult placed put in point of care needed will start metformin Would benefit from clarity over recent hospitalization what this were done details regarding treatment continue Haldol unclear if patient has Healthcare proxy his [place] was low slowed cognition with poor details in depth at times during blankly regarding making judgments Unclear if any of this relates to past coma or 2 hypothyroidism. He does seem more impaired than when last seen unclear when last imaging was. Continue Haldol sitter neuro indira involvement regarding diagnostic picture. Patient does remain paranoid blunted suspicious apathetic. He might benefit from longer-term placement if available and appropriate at a later time involved DMH involvement would be quite helpful Time Spent With Patient Time: Total time managing care of this patient today ____ minutes.
[2023-09-13] MEDS: HaloperidoL 5 MG TABLET 10 MG PO (08:59)
[2023-09-13] MEDS: Levothyroxine Sodium 200 MCG TABLET PO (08:59)
[2023-09-13 09:06] LABS: Glucose, Whole Blood 256 mg/dL (60-115)
[2023-09-13] MEDS: Insulin Lispro 100 UNIT/ML 3 ML VIAL SUBCUT ×4 (09:13→20:26)
--- NOTE | 2023-09-13 11:15 | PM.EVENT ---
Event Note Date of Service: 09/13/23 Event Note: Patient is a 58-year-old male with PMH significant for hypothyroidism unspecified mood disorder who was admitted to [facility] psychiatry unit after being found wandering around in the streets and acting erratically by EMS. Patient apparently had been released from long-term earlier that day. Hospitalist consult for medical management of new onset type 2 diabetes mellitus. Upon initial presentation to the ED patient's random glucose was 197 and POC was 287, the patient's POC spiked to over 600 after being on the unit. The patient's POC this morning upon waking was 256. Given morning glucose, little concern for DKA. A1c 9.2. Pt without previous known history of diabetes mellitus. Will place on sliding scale insulin, Lantus 15 at bedtime, and will start on metformin 500 ER daily. Patient seen and evaluated on the unit where he was provided counseling diabetes management lifestyle modifications, and diabetic diet. Was also provided diabetes education handouts for him to read and evaluate on his. Time Spent With Patient Time: Total time managing care of this patient today ____ minutes.
[2023-09-13 12:37] LABS: Glucose, Whole Blood 287 mg/dL (60-115)
[2023-09-13 17:50] LABS: Glucose, Whole Blood 264 mg/dL (60-115)
[2023-09-13] MEDS: metFORMIN HCl ER 500 MG TAB.ER.24H PO (18:10)
[2023-09-13 19:40] VITALS: BP 110/65; PULSE 97; RESP 18; TEMP 36.6; O2SAT 98
[2023-09-13 20:20] LABS: Glucose, Whole Blood 306 mg/dL (60-115)
[2023-09-13] MEDS: Insulin Glargine,Hum.rec.anlog 100 UNIT/ML 10 ML VIAL 15 UNIT SUBCUT (20:25)
[2023-09-13] MEDS: hydrOXYzine HCL 25 MG TABLET PO (20:27)
[2023-09-13] MEDS: traZODone HCL 50 MG TABLET PO (20:27)
--- NOTE | 2023-09-13 23:35 | HO.PSYCHPN ---
Subjective Subjective Date of Service: 09/13/23 Reason For Visit: paranoia cognitive impairment Subjective Notes: Conditional Voluntary Healthcare Proxy: No Guardianship: No Interim History: pt has confusing situation difficult to asses withdrawn amoivational anhedonic marked slowed mentation difficulty taking in information apathetic suspicious Mental Status Exam Mental Status Exam Patient Appearance: Disheveled Patient Orientation: Person, Place, Time and Situation Level of Consciousness: Awake Patient Behavior: Cooperative and Confused Mood Description: Calm, Apathetic, Flat and Apprehensive Affect Description: Flat Ability to Follow Directions: Fair Speech Pattern: Soft-Spoken and Delayed 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: None Thought Process: Linear and Confusion Thought Content: positive for Linear and positive for Logical Judgement: Poor Diagnostics Vital Signs (24Hr): Vital Signs - 24 hr 09/13/23 07:36 09/13/23 19:40 Temperature 97.7 F 98 F Pulse Rate 64 97 Respiratory Rate 14 18 Blood Pressure 101/58 L 110/65 Pulse Oximetry 98 98 Oxygen Delivery Method Room Air Room Air BMI result Body Mass Index 30.6 Labs 09/10/23 20:00 09/12/23 15:08 Labs: Laboratory Results - last 48 hr 09/12/23 09/12/23 09/12/23 08:27 15:08 17:52 Sodium 137 Potassium 4.1 Chloride 101 Carbon Dioxide 25 Anion Gap 15 BUN 20 H Creatinine 1.47 H Estim Creat Clear Calc 61.5 Estimated GFR 50 POC Glucose 204 H 425 H* Fasting Glucose 390 H* Estimat Average Glucose 217 Hemoglobin A1c % 9.2 H Calcium 10.4 H D Total Bilirubin 0.9 AST 12 ALT 34 Alkaline Phosphatase 69 Total Protein 7.2 Albumin 4.4 Triglycerides 474 H Cholesterol 256 H LDL Cholesterol, Calc TNP HDL Cholesterol 37 L 09/12/23 09/12/23 09/13/23 21:14 22:08 08:58 Sodium Potassium Chloride Carbon Dioxide Anion Gap BUN Creatinine Estim Creat Clear Calc Estimated GFR POC Glucose > 600 H* 592 H* 256 H Fasting Glucose Estimat Average Glucose Hemoglobin A1c % Calcium Total Bilirubin AST ALT Alkaline Phosphatase Total Protein Albumin Triglycerides Cholesterol LDL Cholesterol, Calc HDL Cholesterol 09/13/23 09/13/23 09/13/23 12:32 17:36 20:15 Sodium Potassium Chloride Carbon Dioxide Anion Gap BUN Creatinine Estim Creat Clear Calc Estimated GFR POC Glucose 287 H 264 H 306 H Fasting Glucose Estimat Average Glucose Hemoglobin A1c % Calcium Total Bilirubin AST ALT Alkaline Phosphatase Total Protein Albumin Triglycerides Cholesterol LDL Cholesterol, Calc HDL Cholesterol Medications Medications Current Medications Acetaminophen (Acetaminophen 325 Mg Tablet) 650 mg PO Q6H PRN PRN Reason: Headache/Pain Mild Scale (1-3) Al Hydroxide/Mg Hydroxide (Magnesium Hydrox/Alum Hydrox 30 Ml Oral.Susp) 30 ml PO Q6H PRN PRN Reason: Heartburn/Nausea Benztropine Mesylate (Benztropine Mesylate 0.5 Mg Tablet) 0.5 mg PO TID PRN PRN Reason: Extrapyramidal Effects Glucose (Glucose Gel 15 Gm Gel..Gram.) 15 gm PO Q15M PRN; Protocol PRN Reason: per Hypoglycemia Standing Ord. Haloperidol (Haloperidol 5 Mg Tablet) 10 mg PO DAILY [facility] Last Admin: 09/13/23 08:59 Dose: 10 mg Hydroxyzine HCl (Hydroxyzine Hcl 25 Mg Tablet) 25 mg PO Q6H PRN PRN Reason: Anxiety Last Admin: 09/13/23 20:27 Dose: 25 mg Dextrose (D10) 250 mls @ 750 mls/hr IV Q15M PRN; Protocol PRN Reason: per Hypoglycemia Standing Ord. Insulin Glargine (Insulin Glargine,Hum.Rec.Anlog 100 Unit/Ml 10 Ml Vial) 15 unit SUBCUT BEDTIME [facility] Last Admin: 09/13/23 20:25 Dose: 15 unit Insulin Human Lispro (Insulin Lispro 100 Unit/Ml 3 Ml Vial) 0 unit SUBCUT QIDACHS [facility]; Protocol Last Admin: 09/13/23 20:26 Dose: 8 unit Levothyroxine Sodium (Levothyroxine Sodium 200 Mcg Tablet) 200 mcg PO DAILY [facility] Last Admin: 09/13/23 08:59 Dose: 200 mcg Magnesium Hydroxide (Milk Of Magnesia 30 Ml Oral.Susp) 30 ml PO DAILY PRN PRN Reason: Constipation Metformin HCl (Metformin Hcl Er 500 Mg Tab.Er.24h) 500 mg PO DAILY@1700 [facility] Last Admin: 09/13/23 18:10 Dose: 500 mg Nicotine Polacrilex (Nicotine Polacrilex 2 Mg Gum) 4 mg BUCCAL Q2H PRN PRN Reason: Nicotine Cravings Trazodone HCl (Trazodone Hcl 50 Mg Tablet) 50 mg PO BEDTIME MRX1 PRN PRN Reason: Insomnia Last Admin: 09/13/23 20:27 Dose: 50 mg Allergies Allergies Allergy/AdvReac Type Severity Reaction Status Date / Time amoxicillin [AMOXICILLIN] Allergy Mild VOMITING/ABD Verified 09/10/23 19:44 PAIN Assessment & Plan Assessment & Plan (1) Schizoaffective disorder: Status: Acute Code(s): F25.9 - Schizoaffective disorder, unspecified (2) Hypothyroidism: Status: Acute Code(s): E03.9 - Hypothyroidism, unspecified (3) Type 2 diabetes mellitus: Status: Acute Code(s): E11.9 - Type 2 diabetes mellitus without complications Plan cont haldol get records ? hcp ? start antidep unclear hx Patient educated on: diagnosis, medication risk/benefits and medical condition Informed Consent: further education needed Reason for continued inpatient stay Substantial Risk for: inability to function, rapid decompensation and med/psych decompensation Time Spent With Patient Time: Total time managing care of this patient today ____ minutes.
[2023-09-14] MEDS: Levothyroxine Sodium 200 MCG TABLET PO (08:56)
[2023-09-14] MEDS: HaloperidoL 5 MG TABLET 10 MG PO (08:56)
[2023-09-14 09:08] LABS: Glucose, Whole Blood 292 mg/dL (60-115)
[2023-09-14] MEDS: Insulin Lispro 100 UNIT/ML 3 ML VIAL SUBCUT ×4 (09:17→22:15)
--- NOTE | 2023-09-14 09:33 | HO.PSYCHPN ---
Subjective Subjective Date of Service: 09/14/23 Reason For Visit: paranoia cognitive impairment Subjective Notes: Conditional Voluntary Interim History: Reviewed with Dr. Gonzalez. Keeping to self. More talkative today. Pt concerned he will be transferred to [facility]. Pt stated, The paper I signed yesterday. Are you going to send me back to the last hospital? That place was horrible . Pt was educated he signed a release of information with Dr. Gonzalez to obtain records from [facility]. Pt was given a copy of the release he signed. Despite this, pt continues to be anxious about being transferred. Pt denies SI/HI/VH/AH. Medication Compliance: Yes Side effects from medications: No Attending Groups: No Review of Systems Constitutional: Reports as per HPI Eyes: Reports as per HPI Reports as per HPI Cardiovascular: Reports as per HPI Respiratory: Reports as per HPI Gastrointestinal: Reports as per HPI Genitourinary: Reports as per HPI Musculoskeletal: Reports as per HPI Skin/Breast: Reports as per HPI Reports as per HPI Psychiatric: Reports as per HPI Endocrine: Reports as per HPI Hematologic/Lymphatic: Reports as per HPI Allergic/Immunologic: Reports as per HPI Mental Status Exam Mental Status Exam Narrative: Pt behavior is cooperative, calm, guarded; dressed in casual attire; mood is described as okay ; eye contact appropriate; Speech is slow rate, volume and not pressured; confused, paranoid, worried he will be transferred to [facility]; denies SI/HI/VH/AH. Diagnostics Vital Signs (24Hr): Vital Signs - 24 hr 09/13/23 19:40 Temperature 98 F Pulse Rate 97 Respiratory Rate 18 Blood Pressure 110/65 Pulse Oximetry 98 Oxygen Delivery Method Room Air BMI result Body Mass Index 30.6 Labs 09/10/23 20:00 09/12/23 15:08 Labs: Laboratory Results - last 48 hr 09/12/23 09/12/23 09/12/23 15:08 17:52 21:14 Sodium 137 Potassium 4.1 Chloride 101 Carbon Dioxide 25 Anion Gap 15 BUN 20 H Creatinine 1.47 H Estim Creat Clear Calc 61.5 Estimated GFR 50 POC Glucose 425 H* > 600 H* Fasting Glucose 390 H* Estimat Average Glucose 217 Hemoglobin A1c % 9.2 H Calcium 10.4 H D Total Bilirubin 0.9 AST 12 ALT 34 Alkaline Phosphatase 69 Total Protein 7.2 Albumin 4.4 Triglycerides 474 H Cholesterol 256 H LDL Cholesterol, Calc TNP HDL Cholesterol 37 L 09/12/23 09/13/23 09/13/23 22:08 08:58 12:32 Sodium Potassium Chloride Carbon Dioxide Anion Gap BUN Creatinine Estim Creat Clear Calc Estimated GFR POC Glucose 592 H* 256 H 287 H Fasting Glucose Estimat Average Glucose Hemoglobin A1c % Calcium Total Bilirubin AST ALT Alkaline Phosphatase Total Protein Albumin Triglycerides Cholesterol LDL Cholesterol, Calc HDL Cholesterol 09/13/23 09/13/23 09/14/23 17:36 20:15 08:59 Sodium Potassium Chloride Carbon Dioxide Anion Gap BUN Creatinine Estim Creat Clear Calc Estimated GFR POC Glucose 264 H 306 H 292 H Fasting Glucose Estimat Average Glucose Hemoglobin A1c % Calcium Total Bilirubin AST ALT Alkaline Phosphatase Total Protein Albumin Triglycerides Cholesterol LDL Cholesterol, Calc HDL Cholesterol Medications Medications Current Medications Acetaminophen (Acetaminophen 325 Mg Tablet) 650 mg PO Q6H PRN PRN Reason: Headache/Pain Mild Scale (1-3) Al Hydroxide/Mg Hydroxide (Magnesium Hydrox/Alum Hydrox 30 Ml Oral.Susp) 30 ml PO Q6H PRN PRN Reason: Heartburn/Nausea Benztropine Mesylate (Benztropine Mesylate 0.5 Mg Tablet) 0.5 mg PO TID PRN PRN Reason: Extrapyramidal Effects Glucose (Glucose Gel 15 Gm Gel..Gram.) 15 gm PO Q15M PRN; Protocol PRN Reason: per Hypoglycemia Standing Ord. Haloperidol (Haloperidol 5 Mg Tablet) 10 mg PO DAILY [facility] Last Admin: 09/14/23 08:56 Dose: 10 mg Hydroxyzine HCl (Hydroxyzine Hcl 25 Mg Tablet) 25 mg PO Q6H PRN PRN Reason: Anxiety Last Admin: 09/13/23 20:27 Dose: 25 mg Dextrose (D10) 250 mls @ 750 mls/hr IV Q15M PRN; Protocol PRN Reason: per Hypoglycemia Standing Ord. Insulin Glargine (Insulin Glargine,Hum.Rec.Anlog 100 Unit/Ml 10 Ml Vial) 15 unit SUBCUT BEDTIME [facility] Last Admin: 09/13/23 20:25 Dose: 15 unit Insulin Human Lispro (Insulin Lispro 100 Unit/Ml 3 Ml Vial) 0 unit SUBCUT QIDACHS [facility]; Protocol Last Admin: 09/14/23 09:17 Dose: 6 unit Levothyroxine Sodium (Levothyroxine Sodium 200 Mcg Tablet) 200 mcg PO DAILY [facility] Last Admin: 09/14/23 08:56 Dose: 200 mcg Magnesium Hydroxide (Milk Of Magnesia 30 Ml Oral.Susp) 30 ml PO DAILY PRN PRN Reason: Constipation Metformin HCl (Metformin Hcl Er 500 Mg Tab.Er.24h) 500 mg PO DAILY@1700 [facility] Last Admin: 09/13/23 18:10 Dose: 500 mg Nicotine Polacrilex (Nicotine Polacrilex 2 Mg Gum) 4 mg BUCCAL Q2H PRN PRN Reason: Nicotine Cravings Trazodone HCl (Trazodone Hcl 50 Mg Tablet) 50 mg PO BEDTIME MRX1 PRN PRN Reason: Insomnia Last Admin: 09/13/23 20:27 Dose: 50 mg Allergies Allergies Allergy/AdvReac Type Severity Reaction Status Date / Time amoxicillin [AMOXICILLIN] Allergy Mild VOMITING/ABD Verified 09/10/23 19:44 PAIN Assessment & Plan Assessment & Plan (1) Schizoaffective disorder: Status: Acute Code(s): F25.9 - Schizoaffective disorder, unspecified (2) Hypothyroidism: Status: Acute Code(s): E03.9 - Hypothyroidism, unspecified (3) Type 2 diabetes mellitus: Status: Acute Code(s): E11.9 - Type 2 diabetes mellitus without complications Plan Patient is a 58 year old male with hx of Schizoaffective d/o and hypothyroid disorder/thyroid coma, stroke and brain aneurysm, who was brought to [facility] ER on a Section 12 d/t disorganized behavior, concern for his memory impairment, medications noncompliance and poor ADLs. Plan: CV 15 minute safety checks Continue home medications: Haldol 10mg PO daily Synthroid 200mcg PO daily Obtain labs; A1C/POCs Obtain collateral from sister Obtain records from last hospitalization. MOCA Referral for DMH services if patient is agreeable. encourage medication compliance;consider VARGAS discharge planning 09/11: Elevated fasting blood sugar elevated hemoglobin A1c 9.2 med consult placed put in point of care needed will start metformin Would benefit from clarity over recent hospitalization what this were done details regarding treatment continue Haldol unclear if patient has Healthcare proxy his [place] was low slowed cognition with poor details in depth at times during blankly regarding making judgments Unclear if any of this relates to past coma or 2 hypothyroidism. He does seem more impaired than when last seen unclear when last imaging was. Continue Haldol sitter neuro indira involvement regarding diagnostic picture. Patient does remain paranoid blunted suspicious apathetic. He might benefit from longer-term placement if available and appropriate at a later time involved DMH involvement would be quite helpful 09/12: cont haldol get records ? hcp ? start antidep unclear hx 09/13: Keeping to self. More talkative today. Pt concerned he will be transferred to [facility]. Pt stated, The paper I signed yesterday. Are you going to send me back to the last hospital? That place was horrible . Pt was educated he signed a release of information with Dr. Gonzalez to obtain records from [facility]. Pt was given a copy of the release he signed. Despite this, pt continues to be anxious about being transferred. Pt denies SI/HI/VH/AH. Patient educated on: diagnosis and medication risk/benefits Reason for continued inpatient stay Substantial Risk for: med/psych decompensation Time Spent With Patient Time: Total time managing care of this patient today _20___ minutes.
[2023-09-14 10:20] LABS: Erythrocyte Sedimentation Rate 2 MM/HR (0-15)
[2023-09-14 12:53] LABS: Glucose, Whole Blood 344 mg/dL (60-115)
[2023-09-14 14:06] VITALS: BP 119/69; PULSE 93; RESP 16; O2SAT 99
[2023-09-14 17:41] LABS: Glucose, Whole Blood 313 mg/dL (60-115)
[2023-09-14] MEDS: metFORMIN HCl ER 500 MG TAB.ER.24H PO (18:29)
[2023-09-14 20:00] VITALS: BP 121/75; PULSE 95; RESP 16; TEMP 37.3; O2SAT 96
[2023-09-14 20:28] LABS: Glucose, Whole Blood 409 mg/dL (60-115)
[2023-09-14] MEDS: Insulin Glargine,Hum.rec.anlog 100 UNIT/ML 10 ML VIAL 15 UNIT SUBCUT (22:14)
--- NOTE | 2023-09-15 09:04 | P.PNPSI_ITS ---
Subjective Subjective Date of Service: 09/15/23 Reason For Visit: paranoia cognitive impairment Subjective Notes: Conditional Voluntary Interim History: Reviewed with Dr. Gonzalez. Keeping to self. active on unit. showered. Pt reports feeling alright today; pt reports he is worried about where I'm going to go . Pt continues concerned he will be transferred to [facility]. Pt denies SI/HI/VH/AH. Medication Compliance: Yes Side effects from medications: No Attending Groups: No Review of Systems Constitutional: Reports as per HPI Eyes: Reports as per HPI Reports as per HPI Cardiovascular: Reports as per HPI Respiratory: Reports as per HPI Gastrointestinal: Reports as per HPI Genitourinary: Reports as per HPI Musculoskeletal: Reports as per HPI Skin/Breast: Reports as per HPI Reports as per HPI Psychiatric: Reports as per HPI Endocrine: Reports as per HPI Hematologic/Lymphatic: Reports as per HPI Allergic/Immunologic: Reports as per HPI Mental Status Exam Mental Status Exam Narrative: Pt behavior is cooperative, calm; dressed in casual attire; mood is described as okay ; eye contact appropriate; Speech is slow rate, volume and not pressured; confused, paranoid, worried he will be transferred to [facility]; denies SI/HI/VH/AH. Diagnostics Vital Signs (24Hr): Vital Signs - 24 hr 09/14/23 14:06 09/14/23 20:00 Temperature 99.1 F Pulse Rate 93 95 Respiratory Rate 16 16 Blood Pressure 119/69 121/75 Pulse Oximetry 99 96 Oxygen Delivery Method Room Air Room Air BMI result Body Mass Index 30.6 Labs 09/10/23 20:00 09/12/23 15:08 Labs: Laboratory Results - last 48 hr 09/13/23 09/13/23 09/13/23 08:58 12:32 17:36 ESR POC Glucose 256 H 287 H 264 H C-Reactive Protein 09/13/23 09/14/23 09/14/23 20:15 08:59 09:06 ESR 2 POC Glucose 306 H 292 H C-Reactive Protein 0.10 09/14/23 09/14/23 09/14/23 12:48 17:36 20:19 ESR POC Glucose 344 H 313 H 409 H* C-Reactive Protein Medications Medications Current Medications Acetaminophen (Acetaminophen 325 Mg Tablet) 650 mg PO Q6H PRN PRN Reason: Headache/Pain Mild Scale (1-3) Al Hydroxide/Mg Hydroxide (Magnesium Hydrox/Alum Hydrox 30 Ml Oral.Susp) 30 ml PO Q6H PRN PRN Reason: Heartburn/Nausea Benztropine Mesylate (Benztropine Mesylate 0.5 Mg Tablet) 0.5 mg PO TID PRN PRN Reason: Extrapyramidal Effects Glucose (Glucose Gel 15 Gm Gel..Gram.) 15 gm PO Q15M PRN; Protocol PRN Reason: per Hypoglycemia Standing Ord. Haloperidol (Haloperidol 5 Mg Tablet) 10 mg PO DAILY [facility] Last Admin: 09/14/23 08:56 Dose: 10 mg Hydroxyzine HCl (Hydroxyzine Hcl 25 Mg Tablet) 25 mg PO Q6H PRN PRN Reason: Anxiety Last Admin: 09/13/23 20:27 Dose: 25 mg Dextrose (D10) 250 mls @ 750 mls/hr IV Q15M PRN; Protocol PRN Reason: per Hypoglycemia Standing Ord. Insulin Glargine (Insulin Glargine,Hum.Rec.Anlog 100 Unit/Ml 10 Ml Vial) 15 unit SUBCUT BEDTIME [facility] Last Admin: 09/14/23 22:14 Dose: 15 unit Insulin Human Lispro (Insulin Lispro 100 Unit/Ml 3 Ml Vial) 0 unit SUBCUT QIDACHS [facility]; Protocol Last Admin: 09/14/23 22:15 Dose: 10 unit Levothyroxine Sodium (Levothyroxine Sodium 200 Mcg Tablet) 200 mcg PO DAILY [facility] Last Admin: 09/14/23 08:56 Dose: 200 mcg Magnesium Hydroxide (Milk Of Magnesia 30 Ml Oral.Susp) 30 ml PO DAILY PRN PRN Reason: Constipation Metformin HCl (Metformin Hcl Er 500 Mg Tab.Er.24h) 500 mg PO DAILY@1700 [facility] Last Admin: 09/14/23 18:29 Dose: 500 mg Nicotine Polacrilex (Nicotine Polacrilex 2 Mg Gum) 4 mg BUCCAL Q2H PRN PRN Reason: Nicotine Cravings Trazodone HCl (Trazodone Hcl 50 Mg Tablet) 50 mg PO BEDTIME MRX1 PRN PRN Reason: Insomnia Last Admin: 09/13/23 20:27 Dose: 50 mg Allergies Allergies Allergy/AdvReac Type Severity Reaction Status Date / Time amoxicillin [AMOXICILLIN] Allergy Mild VOMITING/ABD Verified 09/10/23 19:44 PAIN Assessment & Plan Assessment & Plan (1) Schizoaffective disorder: Status: Acute Code(s): F25.9 - Schizoaffective disorder, unspecified (2) Hypothyroidism: Status: Acute Code(s): E03.9 - Hypothyroidism, unspecified (3) Type 2 diabetes mellitus: Status: Acute Code(s): E11.9 - Type 2 diabetes mellitus without complications Plan Patient is a 58 year old male with hx of Schizoaffective d/o and hypothyroid disorder/thyroid coma, stroke and brain aneurysm, who was brought to [facility] ER on a Section 12 d/t disorganized behavior, concern for his memory impairment, medications noncompliance and poor ADLs. Plan: CV 15 minute safety checks Continue home medications: Haldol 10mg PO daily Synthroid 200mcg PO daily Obtain labs; A1C/POCs Obtain collateral from sister Obtain records from last hospitalization. MOCA Referral for DMH services if patient is agreeable. encourage medication compliance;consider VARGAS discharge planning 09/11: Elevated fasting blood sugar elevated hemoglobin A1c 9.2 med consult placed put in point of care needed will start metformin Would benefit from clarity over recent hospitalization what this were done details regarding treatment continue Haldol unclear if patient has Healthcare proxy his [place] was low slowed cognition with poor details in depth at times during blankly regarding making judgments Unclear if any of this relates to past coma or 2 hypothyroidism. He does seem more impaired than when last seen unclear when last imaging was. Continue Haldol sitter neuro indira involvement regarding diagnostic picture. Patient does remain paranoid blunted suspicious apathetic. He might benefit from longer- term placement if available and appropriate at a later time involved DMH involvement would be quite helpful 09/12: cont haldol get records ? hcp ? start antidep unclear hx 09/13: Keeping to self. More talkative today. Pt concerned he will be transferred to [facility]. Pt stated, The paper I signed yesterday. Are you going to send me back to the last hospital? That place was horrible . Pt was educated he signed a release of information with Dr. Gonzalez to obtain records from [facility]. Pt was given a copy of the release he signed. Despite this, pt continues to be anxious about being transferred. Pt denies SI/HI/VH/AH. 09/14: Keeping to self. active on unit. showered. Pt reports feeling alright today; pt reports he is worried about where I'm going to go . Pt continues concerned he will be transferred to [facility]. Pt denies SI/HI/VH/AH. Patient educated on: diagnosis and medication risk/benefits Reason for continued inpatient stay Substantial Risk for: med/psych decompensation Time Spent With Patient Time: Total time managing care of this patient today _20___ minutes.
[2023-09-15 09:33] LABS: Glucose, Whole Blood 306 mg/dL (60-115)
[2023-09-15] MEDS: Levothyroxine Sodium 200 MCG TABLET PO (09:53)
[2023-09-15] MEDS: HaloperidoL 5 MG TABLET 10 MG PO (09:53)
[2023-09-15] MEDS: Insulin Lispro 100 UNIT/ML 3 ML VIAL SUBCUT ×3 (09:57→17:58)
[2023-09-15 13:00] LABS: Glucose, Whole Blood 443 mg/dL (60-115)
[2023-09-15 14:09] LABS: Glucose, Whole Blood 436 mg/dL (60-115)
[2023-09-15 17:51] LABS: Glucose, Whole Blood 406 mg/dL (60-115)
[2023-09-15] MEDS: metFORMIN HCl ER 500 MG TAB.ER.24H PO (17:59)
[2023-09-15 18:59] LABS: Glucose, Whole Blood 411 mg/dL (60-115)
[2023-09-15] MEDS: Insulin Lispro 100 UNIT/ML 3 ML VIAL 12 UNIT SUBCUT (19:47)
[2023-09-15 20:00] VITALS: BP 136/80; PULSE 90; RESP 16; TEMP 36.6; O2SAT 98
--- NOTE | 2023-09-15 20:59 | PC.NURSE ---
When RN attempted to recheck pt's blood sugar pt was upset you just checked it 10 minutes ago and I hate getting poked all day. Pt refused recheck of sugar and insulin.
[2023-09-15 22:47] LABS: Glucose, Whole Blood 156 mg/dL (60-115)
[2023-09-16 04:52] LABS: Syphilis Screen Nonreactive (Nonreactive)
[2023-09-16] MEDS: Levothyroxine Sodium 200 MCG TABLET PO (08:46)
[2023-09-16] MEDS: HaloperidoL 5 MG TABLET 10 MG PO (08:46)
[2023-09-16] MEDS: Insulin Lispro 100 UNIT/ML 3 ML VIAL SUBCUT ×4 (09:03→20:21)
[2023-09-16 09:28] LABS: Glucose, Whole Blood 197 mg/dL (60-115)
--- NOTE | 2023-09-16 10:06 | HO.PSYCHPN ---
Subjective Subjective Date of Service: 09/16/23 Reason For Visit: paranoia cognitive impairment Subjective Notes: Conditional Voluntary Interim History: Reviewed with Dr. Gonzalez. Pt reports feeling alright today; pt continues to report he is worried about where I'm going to go . Responding with brief responses. Guarded. Observed standing in one place for a long period of time. Appears confused. Pt denies SI/HI/VH/AH. T/W spoke to patient's sister, Ros, with patients verbal consent. Ros reports concerns regarding patients ability to make decisions regarding his mental and physical health. She plans on contacting legal advice on obtaining guardianship of patient. Medication Compliance: Yes Side effects from medications: No Attending Groups: No Review of Systems Constitutional: Reports as per HPI Eyes: Reports as per HPI Reports as per HPI Cardiovascular: Reports as per HPI Respiratory: Reports as per HPI Gastrointestinal: Reports as per HPI Genitourinary: Reports as per HPI Musculoskeletal: Reports as per HPI Skin/Breast: Reports as per HPI Reports as per HPI Psychiatric: Reports as per HPI Endocrine: Reports as per HPI Hematologic/Lymphatic: Reports as per HPI Allergic/Immunologic: Reports as per HPI Mental Status Exam Mental Status Exam Narrative: Pt behavior is cooperative, calm; dressed in casual attire; mood is described as okay ; eye contact appropriate; Speech is slow rate, volume and not pressured; confused, some disorganization; denies SI/HI/VH/AH. Diagnostics Vital Signs (24Hr): Vital Signs - 24 hr 09/15/23 20:00 Temperature 97.8 F Pulse Rate 90 Respiratory Rate 16 Blood Pressure 136/80 Pulse Oximetry 98 Oxygen Delivery Method Room Air BMI result Body Mass Index 30.6 Labs 09/10/23 20:00 09/12/23 15:08 Labs: Laboratory Results - last 48 hr 09/14/23 09/14/23 09/14/23 09:06 12:48 17:36 ESR 2 POC Glucose 344 H 313 H C-Reactive Protein 0.10 T.pallidum Ab (EIA) Nonreactive 09/14/23 09/15/23 09/15/23 20:19 09:26 12:55 ESR POC Glucose 409 H* 306 H 443 H* C-Reactive Protein T.pallidum Ab (EIA) 09/15/23 09/15/23 09/15/23 13:59 17:45 18:53 ESR POC Glucose 436 H* 406 H* 411 H* C-Reactive Protein T.pallidum Ab (EIA) 09/15/23 09/16/23 22:42 08:46 ESR POC Glucose 156 H 197 H C-Reactive Protein T.pallidum Ab (EIA) Medications Medications Current Medications Acetaminophen (Acetaminophen 325 Mg Tablet) 650 mg PO Q6H PRN PRN Reason: Headache/Pain Mild Scale (1-3) Al Hydroxide/Mg Hydroxide (Magnesium Hydrox/Alum Hydrox 30 Ml Oral.Susp) 30 ml PO Q6H PRN PRN Reason: Heartburn/Nausea Benztropine Mesylate (Benztropine Mesylate 0.5 Mg Tablet) 0.5 mg PO TID PRN PRN Reason: Extrapyramidal Effects Glucose (Glucose Gel 15 Gm Gel..Gram.) 15 gm PO Q15M PRN; Protocol PRN Reason: per Hypoglycemia Standing Ord. Haloperidol (Haloperidol 5 Mg Tablet) 10 mg PO DAILY [facility] Last Admin: 09/16/23 08:46 Dose: 10 mg Hydroxyzine HCl (Hydroxyzine Hcl 25 Mg Tablet) 25 mg PO Q6H PRN PRN Reason: Anxiety Last Admin: 09/13/23 20:27 Dose: 25 mg Dextrose (D10) 250 mls @ 750 mls/hr IV Q15M PRN; Protocol PRN Reason: per Hypoglycemia Standing Ord. Insulin Glargine (Insulin Glargine,Hum.Rec.Anlog 100 Unit/Ml 10 Ml Vial) 20 unit SUBCUT BEDTIME [facility] Last Admin: 09/15/23 20:59 Dose: Not Given Insulin Human Lispro (Insulin Lispro 100 Unit/Ml 3 Ml Vial) 0 unit SUBCUT QIDACHS [facility]; Protocol Last Admin: 09/16/23 09:03 Dose: 2 unit Levothyroxine Sodium (Levothyroxine Sodium 200 Mcg Tablet) 200 mcg PO DAILY [facility] Last Admin: 09/16/23 08:46 Dose: 200 mcg Magnesium Hydroxide (Milk Of Magnesia 30 Ml Oral.Susp) 30 ml PO DAILY PRN PRN Reason: Constipation Metformin HCl (Metformin Hcl Er 500 Mg Tab.Er.24h) 500 mg PO DAILY@1700 [facility] Last Admin: 09/15/23 17:59 Dose: 500 mg Nicotine Polacrilex (Nicotine Polacrilex 2 Mg Gum) 4 mg BUCCAL Q2H PRN PRN Reason: Nicotine Cravings Trazodone HCl (Trazodone Hcl 50 Mg Tablet) 50 mg PO BEDTIME MRX1 PRN PRN Reason: Insomnia Last Admin: 09/13/23 20:27 Dose: 50 mg Allergies Allergies Allergy/AdvReac Type Severity Reaction Status Date / Time amoxicillin [AMOXICILLIN] Allergy Mild VOMITING/ABD Verified 09/10/23 19:44 PAIN Assessment & Plan Assessment & Plan (1) Schizoaffective disorder: Status: Acute Code(s): F25.9 - Schizoaffective disorder, unspecified (2) Hypothyroidism: Status: Acute Code(s): E03.9 - Hypothyroidism, unspecified (3) Type 2 diabetes mellitus: Status: Acute Code(s): E11.9 - Type 2 diabetes mellitus without complications Plan Patient is a 58 year old male with hx of Schizoaffective d/o and hypothyroid disorder/thyroid coma, stroke and brain aneurysm, who was brought to [facility] ER on a Section 12 d/t disorganized behavior, concern for his memory impairment, medications noncompliance and poor ADLs. Plan: CV 15 minute safety checks Continue home medications: Haldol 10mg PO daily Synthroid 200mcg PO daily Obtain labs; A1C/POCs Obtain collateral from sister Obtain records from last hospitalization. MOCA Referral for DMH services if patient is agreeable. encourage medication compliance;consider VARGAS discharge planning 09/11: Elevated fasting blood sugar elevated hemoglobin A1c 9.2 med consult placed put in point of care needed will start metformin Would benefit from clarity over recent hospitalization what this were done details regarding treatment continue Haldol unclear if patient has Healthcare proxy his [place] was low slowed cognition with poor details in depth at times during blankly regarding making judgments Unclear if any of this relates to past coma or 2 hypothyroidism. He does seem more impaired than when last seen unclear when last imaging was. Continue Haldol sitter neuro indira involvement regarding diagnostic picture. Patient does remain paranoid blunted suspicious apathetic. He might benefit from longer-term placement if available and appropriate at a later time involved DMH involvement would be quite helpful 09/12: cont haldol get records ? hcp ? start antidep unclear hx 09/13: Keeping to self. More talkative today. Pt concerned he will be transferred to [facility]. Pt stated, The paper I signed yesterday. Are you going to send me back to the last hospital? That place was horrible . Pt was educated he signed a release of information with Dr. Gonzalez to obtain records from [facility]. Pt was given a copy of the release he signed. Despite this, pt continues to be anxious about being transferred. Pt denies SI/HI/VH/AH. 09/14: Keeping to self. active on unit. showered. Pt reports feeling alright today; pt reports he is worried about where I'm going to go . Pt continues concerned he will be transferred to [facility]. Pt denies SI/HI/VH/AH. 09/15:Pt reports feeling alright today; pt continues to report he is worried about where I'm going to go . Responding with brief responses. Guarded. Observed standing in one place for a long period of time. Appears confused. Pt denies SI/HI/VH/AH. T/W spoke to patient's sister, Ros, with patients verbal consent. Ros reports concerns regarding patients ability to make decisions regarding his mental and physical health. She plans on contacting legal advice on obtaining guardianship of patient. Patient educated on: diagnosis and medication risk/benefits Reason for continued inpatient stay Substantial Risk for: med/psych decompensation Time Spent With Patient Time: Total time managing care of this patient today _30___ minutes.
[2023-09-16 12:08] LABS: Glucose, Whole Blood 185 mg/dL (60-115)
[2023-09-16] MEDS: metFORMIN HCl ER 500 MG TAB.ER.24H PO (17:15)
[2023-09-16 17:21] LABS: Glucose, Whole Blood 249 mg/dL (60-115)
[2023-09-16 20:00] VITALS: BP 106/58; PULSE 63; RESP 16; TEMP 36.6; O2SAT 98
[2023-09-16 20:12] LABS: Glucose, Whole Blood 311 mg/dL (60-115)
[2023-09-16] MEDS: Insulin Glargine,Hum.rec.anlog 100 UNIT/ML 10 ML VIAL 20 UNIT SUBCUT (20:21)
[2023-09-17 07:30] VITALS: BP 114/70; PULSE 70; RESP 16; TEMP 36.4; O2SAT 99
[2023-09-17 08:54] LABS: Glucose, Whole Blood 213 mg/dL (60-115)
[2023-09-17] MEDS: HaloperidoL 5 MG TABLET 10 MG PO (09:12)
[2023-09-17] MEDS: Insulin Lispro 100 UNIT/ML 3 ML VIAL SUBCUT ×4 (09:13→21:58)
[2023-09-17] MEDS: Levothyroxine Sodium 200 MCG TABLET PO (09:13)
[2023-09-17 12:51] LABS: Glucose, Whole Blood 192 mg/dL (60-115)
--- NOTE | 2023-09-17 13:40 | HO.PSYCHPN ---
Subjective Subjective Date of Service: 09/17/23 Reason For Visit: paranoia cognitive impairment Subjective Notes: Conditional Voluntary Interim History: Reviewed with Dr. Gonzalez. Patient's presents similar to yesterday's presentation. Responding with brief responses. Guarded. Observed standing in one place for a long period of time, when asked what he is doing, pt stated, I don't know . Pt reports he plans on contacting his sister today and try to convince her for me to stay there . Pt denies SI/HI/VH/AH. Medication Compliance: Yes Side effects from medications: No Attending Groups: No Review of Systems Constitutional: Reports as per HPI Eyes: Reports as per HPI Reports as per HPI Cardiovascular: Reports as per HPI Respiratory: Reports as per HPI Gastrointestinal: Reports as per HPI Genitourinary: Reports as per HPI Musculoskeletal: Reports as per HPI Skin/Breast: Reports as per HPI Reports as per HPI Psychiatric: Reports as per HPI Endocrine: Reports as per HPI Hematologic/Lymphatic: Reports as per HPI Allergic/Immunologic: Reports as per HPI Mental Status Exam Mental Status Exam Narrative: Pt behavior is cooperative, calm; dressed in casual attire; mood is described as okay , flat affect; eye contact appropriate; Speech is slow rate, volume and not pressured; confused, disorganized ; denies SI/HI/VH/AH. Diagnostics Vital Signs (24Hr): Vital Signs - 24 hr 09/16/23 20:00 09/17/23 07:30 Temperature 97.8 F 97.5 F Pulse Rate 63 70 Respiratory Rate 16 16 Blood Pressure 106/58 L 114/70 Pulse Oximetry 98 99 Oxygen Delivery Method Room Air Room Air BMI result Body Mass Index 30.6 Labs 09/10/23 20:00 09/12/23 15:08 Labs: Laboratory Results - last 48 hr 09/14/23 09/15/23 09/15/23 09:06 13:59 17:45 POC Glucose 436 H* 406 H* T.pallidum Ab (EIA) Nonreactive 09/15/23 09/15/23 09/16/23 18:53 22:42 08:46 POC Glucose 411 H* 156 H 197 H T.pallidum Ab (EIA) 09/16/23 09/16/23 09/16/23 12:04 17:17 20:02 POC Glucose 185 H 249 H 311 H T.pallidum Ab (EIA) 09/17/23 09/17/23 08:49 12:47 POC Glucose 213 H 192 H T.pallidum Ab (EIA) Medications Medications Current Medications Acetaminophen (Acetaminophen 325 Mg Tablet) 650 mg PO Q6H PRN PRN Reason: Headache/Pain Mild Scale (1-3) Al Hydroxide/Mg Hydroxide (Magnesium Hydrox/Alum Hydrox 30 Ml Oral.Susp) 30 ml PO Q6H PRN PRN Reason: Heartburn/Nausea Benztropine Mesylate (Benztropine Mesylate 0.5 Mg Tablet) 0.5 mg PO TID PRN PRN Reason: Extrapyramidal Effects Glucose (Glucose Gel 15 Gm Gel..Gram.) 15 gm PO Q15M PRN; Protocol PRN Reason: per Hypoglycemia Standing Ord. Haloperidol (Haloperidol 5 Mg Tablet) 10 mg PO DAILY [facility] Last Admin: 09/17/23 09:12 Dose: 10 mg Hydroxyzine HCl (Hydroxyzine Hcl 25 Mg Tablet) 25 mg PO Q6H PRN PRN Reason: Anxiety Last Admin: 09/13/23 20:27 Dose: 25 mg Dextrose (D10) 250 mls @ 750 mls/hr IV Q15M PRN; Protocol PRN Reason: per Hypoglycemia Standing Ord. Insulin Glargine (Insulin Glargine,Hum.Rec.Anlog 100 Unit/Ml 10 Ml Vial) 20 unit SUBCUT BEDTIME [facility] Last Admin: 09/16/23 20:21 Dose: 20 unit Insulin Human Lispro (Insulin Lispro 100 Unit/Ml 3 Ml Vial) 0 unit SUBCUT QIDACHS [facility]; Protocol Last Admin: 09/17/23 12:58 Dose: 2 unit Levothyroxine Sodium (Levothyroxine Sodium 200 Mcg Tablet) 200 mcg PO DAILY [facility] Last Admin: 09/17/23 09:13 Dose: 200 mcg Magnesium Hydroxide (Milk Of Magnesia 30 Ml Oral.Susp) 30 ml PO DAILY PRN PRN Reason: Constipation Metformin HCl (Metformin Hcl Er 500 Mg Tab.Er.24h) 1,000 mg PO DAILY@1700 [facility] Nicotine Polacrilex (Nicotine Polacrilex 2 Mg Gum) 4 mg BUCCAL Q2H PRN PRN Reason: Nicotine Cravings Trazodone HCl (Trazodone Hcl 50 Mg Tablet) 50 mg PO BEDTIME MRX1 PRN PRN Reason: Insomnia Last Admin: 09/13/23 20:27 Dose: 50 mg Allergies Allergies Allergy/AdvReac Type Severity Reaction Status Date / Time amoxicillin [AMOXICILLIN] Allergy Mild VOMITING/ABD Verified 09/10/23 19:44 PAIN Assessment & Plan Assessment & Plan (1) Schizoaffective disorder: Status: Acute Code(s): F25.9 - Schizoaffective disorder, unspecified (2) Hypothyroidism: Status: Acute Code(s): E03.9 - Hypothyroidism, unspecified (3) Type 2 diabetes mellitus: Status: Acute Code(s): E11.9 - Type 2 diabetes mellitus without complications Plan Patient is a 58 year old male with hx of Schizoaffective d/o and hypothyroid disorder/thyroid coma, stroke and brain aneurysm, who was brought to [facility] on a Section 12 d/t disorganized behavior, concern for his memory impairment, medications noncompliance and poor ADLs. Plan: CV 15 minute safety checks Continue home medications: Haldol 10mg PO daily Synthroid 200mcg PO daily Obtain labs; A1C/POCs Obtain collateral from sister Obtain records from last hospitalization. MOCA Referral for DMH services if patient is agreeable. encourage medication compliance;consider VARGAS discharge planning 09/11: Elevated fasting blood sugar elevated hemoglobin A1c 9.2 med consult placed put in point of care needed will start metformin Would benefit from clarity over recent hospitalization what this were done details regarding treatment continue Haldol unclear if patient has Healthcare proxy his [place] was low slowed cognition with poor details in depth at times during blankly regarding making judgments Unclear if any of this relates to past coma or 2 hypothyroidism. He does seem more impaired than when last seen unclear when last imaging was. Continue Haldol sitter neuro indira involvement regarding diagnostic picture. Patient does remain paranoid blunted suspicious apathetic. He might benefit from longer-term placement if available and appropriate at a later time involved DMH involvement would be quite helpful 09/12: cont haldol get records ? hcp ? start antidep unclear hx 09/13: Keeping to self. More talkative today. Pt concerned he will be transferred to [facility]. Pt stated, The paper I signed yesterday. Are you going to send me back to the last hospital? That place was horrible . Pt was educated he signed a release of information with Dr. Gonzalez to obtain records from [facility]. Pt was given a copy of the release he signed. Despite this, pt continues to be anxious about being transferred. Pt denies SI/HI/VH/AH. 09/14: Keeping to self. active on unit. showered. Pt reports feeling alright today; pt reports he is worried about where I'm going to go . Pt continues concerned he will be transferred to [facility]. Pt denies SI/HI/VH/AH. 09/15:Pt reports feeling alright today; pt continues to report he is worried about where I'm going to go . Responding with brief responses. Guarded. Observed standing in one place for a long period of time. Appears confused. Pt denies SI/HI/VH/AH. T/W spoke to patient's sister, Ros, with patients verbal consent. Ros reports concerns regarding patients ability to make decisions regarding his mental and physical health. She plans on contacting legal advice on obtaining guardianship of patient. 09/16:Patient's presents similar to yesterday's presentation. Responding with brief responses. Guarded. Observed standing in one place for a long period of time, when asked what he is doing, pt stated, I don't know . Pt reports he plans on contacting his sister today and try to convince her for me to stay there . Pt denies SI/HI/VH/AH. Continue current tx plan. Patient educated on: diagnosis and medication risk/benefits Reason for continued inpatient stay Substantial Risk for: med/psych decompensation Time Spent With Patient Time: Total time managing care of this patient today _20___ minutes.
[2023-09-17] MEDS: metFORMIN HCl ER 500 MG TAB.ER.24H 1000 MG PO (18:12)
[2023-09-17 18:52] LABS: Glucose, Whole Blood 195 mg/dL (60-115)
[2023-09-17 21:39] VITALS: BP 104/63; PULSE 80; RESP 16; TEMP 37; O2SAT 99
[2023-09-17 21:41] LABS: Glucose, Whole Blood 168 mg/dL (60-115)
[2023-09-17] MEDS: Insulin Glargine,Hum.rec.anlog 100 UNIT/ML 10 ML VIAL 20 UNIT SUBCUT (21:57)
[2023-09-18 07:48] VITALS: BP 104/68; PULSE 73; RESP 16; TEMP 36.8; O2SAT 98
[2023-09-18] MEDS: Levothyroxine Sodium 200 MCG TABLET PO (09:35)
[2023-09-18] MEDS: HaloperidoL 5 MG TABLET 10 MG PO (09:35)
[2023-09-18 12:34] LABS: Glucose, Whole Blood 145 mg/dL (60-115)
[2023-09-18 12:55] LABS: Glucose, Whole Blood 135 mg/dL (60-115)
--- NOTE | 2023-09-18 13:05 | P.PNPSI_ITS ---
Subjective Subjective Date of Service: 09/18/23 Reason For Visit: paranoia cognitive impairment Subjective Notes: Conditional Voluntary Interim History: Reviewed with Dr. Gonzalez. brief responses. Guarded. 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 Pt denies SI/HI/VH/AH. T/W and Dr. Gonzalez spoke to patient's sister, Ros. Ros stated being [facility] HCP and plans on finding document. She plans on coming to the hospital on Saturday to be present for [employer] intake. Medication Compliance: Yes Side effects from medications: No Attending Groups: No Review of Systems Constitutional: Reports as per HPI Eyes: Reports as per HPI Reports as per HPI Cardiovascular: Reports as per HPI Respiratory: Reports as per HPI Gastrointestinal: Reports as per HPI Genitourinary: Reports as per HPI Musculoskeletal: Reports as per HPI Skin/Breast: Reports as per HPI Reports as per HPI Psychiatric: Reports as per HPI Endocrine: Reports as per HPI Hematologic/Lymphatic: Reports as per HPI Allergic/Immunologic: Reports as per HPI Mental Status Exam Mental Status Exam Narrative: Pt behavior is cooperative, calm; dressed in casual attire; mood is described as okay , flat affect; eye contact appropriate; Speech is slow rate, volume and not pressured; confused, disorganized ; denies SI/HI/VH/AH. Diagnostics Vital Signs (24Hr): Vital Signs - 24 hr 09/17/23 21:39 09/18/23 07:48 Temperature 98.6 F 98.2 F Pulse Rate 80 73 Respiratory Rate 16 16 Blood Pressure 104/63 104/68 Pulse Oximetry 99 98 Oxygen Delivery Method Room Air Room Air BMI result Body Mass Index 30.6 Labs 09/10/23 20:00 09/12/23 15:08 Labs: Laboratory Results - last 48 hr 09/16/23 09/16/23 09/17/23 17:17 20:02 08:49 POC Glucose 249 H 311 H 213 H 09/17/23 09/17/23 09/17/23 12:47 18:01 21:34 POC Glucose 192 H 195 H 168 H 09/18/23 09/18/23 08:11 12:48 POC Glucose 145 H 135 H Medications Medications Current Medications Acetaminophen (Acetaminophen 325 Mg Tablet) 650 mg PO Q6H PRN PRN Reason: Headache/Pain Mild Scale (1-3) Al Hydroxide/Mg Hydroxide (Magnesium Hydrox/Alum Hydrox 30 Ml Oral.Susp) 30 ml PO Q6H PRN PRN Reason: Heartburn/Nausea Benztropine Mesylate (Benztropine Mesylate 0.5 Mg Tablet) 0.5 mg PO TID PRN PRN Reason: Extrapyramidal Effects Glucose (Glucose Gel 15 Gm Gel..Gram.) 15 gm PO Q15M PRN; Protocol PRN Reason: per Hypoglycemia Standing Ord. Haloperidol (Haloperidol 5 Mg Tablet) 10 mg PO DAILY [facility] Last Admin: 09/18/23 09:35 Dose: 10 mg Hydroxyzine HCl (Hydroxyzine Hcl 25 Mg Tablet) 25 mg PO Q6H PRN PRN Reason: Anxiety Last Admin: 09/13/23 20:27 Dose: 25 mg Dextrose (D10) 250 mls @ 750 mls/hr IV Q15M PRN; Protocol PRN Reason: per Hypoglycemia Standing Ord. Insulin Glargine (Insulin Glargine,Hum.Rec.Anlog 100 Unit/Ml 10 Ml Vial) 20 unit SUBCUT BEDTIME [facility] Last Admin: 09/17/23 21:57 Dose: 20 unit Insulin Human Lispro (Insulin Lispro 100 Unit/Ml 3 Ml Vial) 0 unit SUBCUT QIDAS [facility]; Protocol Last Admin: 09/18/23 12:58 Dose: Not Given Levothyroxine Sodium (Levothyroxine Sodium 200 Mcg Tablet) 200 mcg PO DAILY [facility] Last Admin: 09/18/23 09:35 Dose: 200 mcg Magnesium Hydroxide (Milk Of Magnesia 30 Ml Oral.Susp) 30 ml PO DAILY PRN PRN Reason: Constipation Metformin HCl (Metformin Hcl Er 500 Mg Tab.Er.24h) 1,000 mg PO DAILY@1700 [facility] Last Admin: 09/17/23 18:12 Dose: 1,000 mg Nicotine Polacrilex (Nicotine Polacrilex 2 Mg Gum) 4 mg BUCCAL Q2H PRN PRN Reason: Nicotine Cravings Trazodone HCl (Trazodone Hcl 50 Mg Tablet) 50 mg PO BEDTIME MRX1 PRN PRN Reason: Insomnia Last Admin: 09/13/23 20:27 Dose: 50 mg Allergies Allergies Allergy/AdvReac Type Severity Reaction Status Date / Time amoxicillin [AMOXICILLIN] Allergy Mild VOMITING/ABD Verified 07/09/24 19:44 PAIN Assessment & Plan Assessment & Plan (1) Schizoaffective disorder: Status: Acute Code(s): F25.9 - Schizoaffective disorder, unspecified (2) Hypothyroidism: Status: Acute Code(s): E03.9 - Hypothyroidism, unspecified (3) Type 2 diabetes mellitus: Status: Acute Code(s): E11.9 - Type 2 diabetes mellitus without complications Plan Patient is a 58 year old male with hx of Schizoaffective d/o and hypothyroid disorder/thyroid coma, stroke and brain aneurysm, who was brought to [facility] on a Section 12 d/t disorganized behavior, concern for his memory impairment, medications noncompliance and poor ADLs. Plan: CV 15 minute safety checks Continue home medications: Haldol 10mg PO daily Synthroid 200mcg PO daily Obtain labs; A1C/POCs Obtain collateral from sister Obtain records from last hospitalization. MOCA Referral for DMH services if patient is agreeable. encourage medication compliance;consider VARGAS discharge planning 09/11: Elevated fasting blood sugar elevated hemoglobin A1c 9.2 med consult placed put in point of care needed will start metformin Would benefit from clarity over recent hospitalization what this were done details regarding treatment continue Haldol unclear if patient has Healthcare proxy his [place] was low slowed cognition with poor details in depth at times during blankly regarding making judgments Unclear if any of this relates to past coma or 2 hypothyroidism. He does seem more impaired than when last seen unclear when last imaging was. Continue Haldol sitter neuro indira involvement regarding diagnostic picture. Patient does remain paranoid blunted suspicious apathetic. He might benefit from longer- term placement if available and appropriate at a later time involved DMH involvement would be quite helpful 09/12: cont haldol get records ? hcp ? start antidep unclear hx 09/13: Keeping to self. More talkative today. Pt concerned he will be transferred to [facility]. Pt stated, The paper I signed yesterday. Are you going to send me back to the last hospital? That place was horrible . Pt was educated he signed a release of information with Dr. Gonzalez to obtain records from [facility]. Pt was given a copy of the release he signed. Despite this, pt continues to be anxious about being transferred. Pt denies SI/HI/VH/AH. 09/14: Keeping to self. active on unit. showered. Pt reports feeling alright today; pt reports he is worried about where I'm going to go . Pt continues concerned he will be transferred to [facility]. Pt denies SI/HI/VH/AH. 09/15:Pt reports feeling alright today; pt continues to report he is worried about where I'm going to go . Responding with brief responses. Guarded. Observed standing in one place for a long period of time. Appears confused. Pt denies SI/HI/VH/AH. T/W spoke to patient's sister, Ros, with patients verbal consent. Ros reports concerns regarding patients ability to make decisions regarding his mental and physical health. She plans on contacting legal advice on obtaining guardianship of patient. 09/16:Patient's presents similar to yesterday's presentation. Responding with brief responses. Guarded. Observed standing in one place for a long period of time, when asked what he is doing, pt stated, I don't know . Pt reports he plans on contacting his sister today and try to convince her for me to stay there . Pt denies SI/HI/VH/AH. Continue current tx plan. 09/17: brief responses. Guarded. 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 Pt denies SI/HI/VH/AH. T/W and Dr. Gonzalez spoke to patient's sister, Ros. Ros stated being [facility] HCP and plans on finding document. She plans on coming to the hospital on Saturday to be present for [facility] intake. Patient educated on: diagnosis and medication risk/benefits Reason for continued inpatient stay Substantial Risk for: med/psych decompensation Time Spent With Patient Time: Total time managing care of this patient today _20___ minutes.
[2023-09-18] MEDS: metFORMIN HCl ER 500 MG TAB.ER.24H 1000 MG PO (18:05)
[2023-09-18 18:15] LABS: Glucose, Whole Blood 237 mg/dL (60-115)
[2023-09-18] MEDS: Insulin Lispro 100 UNIT/ML 3 ML VIAL SUBCUT ×2 (18:21→22:11)
[2023-09-18 20:00] VITALS: BP 123/70; PULSE 97; RESP 16; TEMP 36.4; O2SAT 96
[2023-09-18 21:15] LABS: Glucose, Whole Blood 239 mg/dL (60-115)
[2023-09-18] MEDS: Insulin Glargine,Hum.rec.anlog 100 UNIT/ML 10 ML VIAL 20 UNIT SUBCUT (22:12)
[2023-09-19 07:00] VITALS: BMI 31.2
[2023-09-19 07:39] VITALS: BP 123/79; PULSE 94; RESP 16; TEMP 36.8; O2SAT 98
[2023-09-19 08:34] LABS: Glucose, Whole Blood 156 mg/dL (60-115)
[2023-09-19] MEDS: Levothyroxine Sodium 200 MCG TABLET PO (09:14)
[2023-09-19] MEDS: Insulin Lispro 100 UNIT/ML 3 ML VIAL SUBCUT (09:14)
[2023-09-19] MEDS: HaloperidoL 5 MG TABLET 10 MG PO (09:14)
--- NOTE | 2023-09-19 11:07 | HO.PSYCHPN ---
Subjective Subjective Date of Service: 09/19/23 Reason For Visit: paranoia cognitive impairment Subjective Notes: Conditional Voluntary Interim History: Pt was able to complete health care proxy appears to understand elements agreeable to brain mri some residual suspiciousness but much miram[place]es range of affect agreeable to [place] for memory attention s/p brain injury may help with apathy seen with his sister Medication Compliance: Yes Mental Status Exam Mental Status Exam Narrative: Mental Status Exam Narrative: Appearance: casually dressed rumpled flat looking Behavior:cooperative psychomotor:some retardation Speech: soft Thought proccess concrete perseverative Thought content:wanting to live with sister Mood:flat ok Affect:constricted SI:denies HI:denies VH/AH:none Delusions: Insight/judgment: limited insight regarding illness Memory/cog: impaired Diagnostics Vital Signs (24Hr): Vital Signs - 24 hr 09/18/23 20:00 09/19/23 07:39 Temperature 97.5 F 98.3 F Pulse Rate 97 94 Respiratory Rate 16 16 Blood Pressure 123/70 123/79 Pulse Oximetry 96 98 Oxygen Delivery Method Room Air Room Air BMI result Body Mass Index 31.2 Labs 09/10/23 20:00 09/19/23 17:32 Labs: Laboratory Results - last 48 hr 09/17/23 09/17/23 09/17/23 12:47 18:01 21:34 POC Glucose 192 H 195 H 168 H 09/18/23 09/18/23 09/18/23 08:11 12:48 18:10 POC Glucose 145 H 135 H 237 H 09/18/23 09/19/23 21:10 08:19 POC Glucose 239 H 156 H Medications Medications Current Medications Acetaminophen (Acetaminophen 325 Mg Tablet) 650 mg PO Q6H PRN PRN Reason: Headache/Pain Mild Scale (1-3) Al Hydroxide/Mg Hydroxide (Magnesium Hydrox/Alum Hydrox 30 Ml Oral.Susp) 30 ml PO Q6H PRN PRN Reason: Heartburn/Nausea Benztropine Mesylate (Benztropine Mesylate 0.5 Mg Tablet) 0.5 mg PO TID PRN PRN Reason: Extrapyramidal Effects Glucose (Glucose Gel 15 Gm Gel..Gram.) 15 gm PO Q15M PRN; Protocol PRN Reason: per Hypoglycemia Standing Ord. Haloperidol (Haloperidol 5 Mg Tablet) 10 mg PO DAILY [facility] Last Admin: 09/19/23 09:14 Dose: 10 mg Hydroxyzine HCl (Hydroxyzine Hcl 25 Mg Tablet) 25 mg PO Q6H PRN PRN Reason: Anxiety Last Admin: 09/13/23 20:27 Dose: 25 mg Dextrose (D10) 250 mls @ 750 mls/hr IV Q15M PRN; Protocol PRN Reason: per Hypoglycemia Standing Ord. Insulin Glargine (Insulin Glargine,Hum.Rec.Anlog 100 Unit/Ml 10 Ml Vial) 20 unit SUBCUT BEDTIME [facility] Last Admin: 09/18/23 22:12 Dose: 20 unit Insulin Human Lispro (Insulin Lispro 100 Unit/Ml 3 Ml Vial) 0 unit SUBCUT QIDACHS [facility]; Protocol Last Admin: 09/19/23 09:14 Dose: 2 unit Lamotrigine (Lamotrigine 25 Mg Tablet) 25 mg PO BEDTIME [facility] Levothyroxine Sodium (Levothyroxine Sodium 200 Mcg Tablet) 200 mcg PO DAILY [facility] Last Admin: 09/19/23 09:14 Dose: 200 mcg Magnesium Hydroxide (Milk Of Magnesia 30 Ml Oral.Susp) 30 ml PO DAILY PRN PRN Reason: Constipation Memantine (Memantine Hcl 5 Mg Tablet) 5 mg PO BID [facility] Metformin HCl (Metformin Hcl Er 500 Mg Tab.Er.24h) 1,000 mg PO DAILY@1700 [facility] Last Admin: 09/18/23 18:05 Dose: 1,000 mg Nicotine Polacrilex (Nicotine Polacrilex 2 Mg Gum) 4 mg BUCCAL Q2H PRN PRN Reason: Nicotine Cravings Trazodone HCl (Trazodone Hcl 50 Mg Tablet) 50 mg PO BEDTIME MRX1 PRN PRN Reason: Insomnia Last Admin: 09/13/23 20:27 Dose: 50 mg Allergies Allergies Allergy/AdvReac Type Severity Reaction Status Date / Time amoxicillin [AMOXICILLIN] Allergy Mild VOMITING/ABD Verified 09/10/23 19:44 PAIN Assessment & Plan Assessment & Plan (1) Schizoaffective disorder: Status: Acute Code(s): F25.9 - Schizoaffective disorder, unspecified (2) Hypothyroidism: Status: Acute Code(s): E03.9 - Hypothyroidism, unspecified (3) Type 2 diabetes mellitus: Status: Acute Code(s): E11.9 - Type 2 diabetes mellitus without complications Plan Patient is a 58 year old male with hx of Schizoaffective d/o and hypothyroid disorder/thyroid coma, stroke and brain aneurysm, who was brought to [facility] ER on a Section 12 d/t disorganized behavior, concern for his memory impairment, medications noncompliance and poor ADLs. Plan: CV 15 minute safety checks Continue home medications: Haldol 10mg PO daily Synthroid 200mcg PO daily Obtain labs; A1C/POCs Obtain collateral from sister Obtain records from last hospitalization. MOCA Referral for DMH services if patient is agreeable. encourage medication compliance;consider VARGAS discharge planning 09/11: Elevated fasting blood sugar elevated hemoglobin A1c 9.2 med consult placed put in point of care needed will start metformin Would benefit from clarity over recent hospitalization what this were done details regarding treatment continue Haldol unclear if patient has Healthcare proxy his [place] was low slowed cognition with poor details in depth at times during blankly regarding making judgments Unclear if any of this relates to past coma or 2 hypothyroidism. He does seem more impaired than when last seen unclear when last imaging was. Continue Haldol sitter neuro indira involvement regarding diagnostic picture. Patient does remain paranoid blunted suspicious apathetic. He might benefit from longer-term placement if available and appropriate at a later time involved DMH involvement would be quite helpful 09/12: cont haldol get records ? hcp ? start antidep unclear hx 09/13: Keeping to self. More talkative today. Pt concerned he will be transferred to [facility]. Pt stated, The paper I signed yesterday. Are you going to send me back to the last hospital? That place was horrible . Pt was educated he signed a release of information with Dr. Gonzalez to obtain records from [facility]. Pt was given a copy of the release he signed. Despite this, pt continues to be anxious about being transferred. Pt denies SI/HI/VH/AH. 09/14: Keeping to self. active on unit. showered. Pt reports feeling alright today; pt reports he is worried about where I'm going to go . Pt continues concerned he will be transferred to [facility]. Pt denies SI/HI/VH/AH. 09/15:Pt reports feeling alright today; pt continues to report he is worried about where I'm going to go . Responding with brief responses. Guarded. Observed standing in one place for a long period of time. Appears confused. Pt denies SI/HI/VH/AH. T/W spoke to patient's sister, Ros, with patients verbal consent. Ros reports concerns regarding patients ability to make decisions regarding his mental and physical health. She plans on contacting legal advice on obtaining guardianship of patient. 09/16:Patient's presents similar to yesterday's presentation. Responding with brief responses. Guarded. Observed standing in one place for a long period of time, when asked what he is doing, pt stated, I don't know . Pt reports he plans on contacting his sister today and try to convince her for me to stay there . Pt denies SI/HI/VH/AH. Continue current tx plan. 09/17: brief responses. Guarded. 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 Pt denies SI/HI/VH/AH. T/W and Dr. Gonzalez spoke to patient's sister, Ros. Ros stated being [facility] HCP and plans on finding document. She plans on coming to the hospital on Saturday to be present for [facility] intake. 09/18 no gross dmitriy flat had been on lamictal in past was stable to some degree on lamictal haldol [place] added Reason for continued inpatient stay Substantial Risk for: inability to function, rapid decompensation and med/psych decompensation Time Spent With Patient Time: Total time managing care of this patient today ____ minutes.
[2023-09-19] MEDS: Memantine HCl 5 MG TABLET PO ×2 (11:55→21:31)
[2023-09-19 12:04] LABS: Glucose, Whole Blood 145 mg/dL (60-115)
[2023-09-19 17:47] LABS: Glucose, Whole Blood 116 mg/dL (60-115)
[2023-09-19] MEDS: metFORMIN HCl ER 500 MG TAB.ER.24H 1000 MG PO (18:05)
[2023-09-19 18:06] LABS: Creatinine Clr Calc Pharmacy 90.4; Estimated Glomerular Filt Rate > 60
[2023-09-19 20:00] VITALS: BP 112/72; PULSE 92; RESP 16; TEMP 37; O2SAT 96
[2023-09-19 20:59] LABS: Glucose, Whole Blood 146 mg/dL (60-115)
[2023-09-19] MEDS: lamoTRIgine 25 MG TABLET PO (21:31)
[2023-09-19] MEDS: Insulin Glargine,Hum.rec.anlog 100 UNIT/ML 10 ML VIAL 20 UNIT SUBCUT (21:31)
[2023-09-20 08:00] VITALS: BP 122/75; PULSE 71; RESP 16; TEMP 36.4; O2SAT 98
[2023-09-20 08:28] LABS: Glucose, Whole Blood 100 mg/dL (60-115)
[2023-09-20] MEDS: HaloperidoL 5 MG TABLET 10 MG PO (09:01)
[2023-09-20] MEDS: Memantine HCl 5 MG TABLET PO ×2 (09:01→22:39)
[2023-09-20] MEDS: Levothyroxine Sodium 200 MCG TABLET PO (09:01)
[2023-09-20 13:10] LABS: Glucose, Whole Blood 107 mg/dL (60-115)
[2023-09-20] MEDS: Acetaminophen 325 MG TABLET 650 MG PO (15:15)
--- NOTE | 2023-09-20 15:15 | PC.NURSE ---
PT completed the [place] assessment with typewriter repairer scoring a 17 out of 30 indicating moderate cognitive impairment.
[2023-09-20] MEDS: metFORMIN HCl ER 500 MG TAB.ER.24H 1000 MG PO (16:31)
[2023-09-20 17:56] LABS: Glucose, Whole Blood 182 mg/dL (60-115)
[2023-09-20] MEDS: Insulin Lispro 100 UNIT/ML 3 ML VIAL SUBCUT (18:02)
[2023-09-20 22:02] VITALS: BP 116/64; PULSE 86; RESP 16; TEMP 36.3; O2SAT 96
[2023-09-20 22:15] LABS: Glucose, Whole Blood 153 mg/dL (60-115)
[2023-09-20] MEDS: lamoTRIgine 25 MG TABLET PO (22:39)
[2023-09-20] MEDS: Insulin Glargine,Hum.rec.anlog 100 UNIT/ML 10 ML VIAL 20 UNIT SUBCUT (22:40)
[2023-09-21 08:00] VITALS: BP 117/65; PULSE 70; RESP 15; TEMP 37; O2SAT 100
--- NOTE | 2023-09-21 08:17 | P.PNPSI_ITS ---
Subjective Subjective Date of Service: 09/21/23 Reason For Visit: paranoia cognitive impairment Interim History: Met with patient. Discussed with Nursing. Has been more anxious recently. Noted cognitive concerns and recently started on Namenda. Isolative. Patient reports not having any concerns and feeling fine. Feeling safe and well cared for. Review of Systems Review of Systems Yes all other systems are reviewed and are negative Mental Status Exam Mental Status Exam Narrative: Mental Status Exam Narrative: Appearance: casually dressed flat looking Behavior:cooperative psychomotor:some retardation Speech: soft Thought proccess concrete perseverative slowed mentation Thought content: No psychosis Mood:flat ok Affect:constricted SI:denies HI:denies VH/AH:none Delusions: Insight/judgment: limited insight regarding illness and decision making Memory/cog: impaired Patient Appearance: Disheveled Patient Orientation: Person, Place, Time and Situation Level of Consciousness: Awake Patient Behavior: Cooperative and Confused Mood Description: Calm, Apathetic, Flat and Apprehensive Affect Description: Flat Ability to Follow Directions: Fair Speech Pattern: Soft-Spoken and Delayed 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: Retirement Impaired Diagnostics Vital Signs (24Hr): Vital Signs - 24 hr 09/20/23 22:02 Temperature 97.4 F Pulse Rate 86 Respiratory Rate 16 Blood Pressure 116/64 Pulse Oximetry 96 Oxygen Delivery Method Room Air BMI result Body Mass Index 31.2 Labs 09/10/23 20:00 09/19/23 17:32 Labs: Laboratory Results - last 48 hr 09/19/23 09/19/23 09/19/23 08:19 11:54 17:32 Creatinine 1.01 Estim Creat Clear Calc 90.4 Estimated GFR > 60 POC Glucose 156 H 145 H 09/19/23 09/19/23 09/20/23 17:38 20:53 08:23 Creatinine Estim Creat Clear Calc Estimated GFR POC Glucose 116 H 146 H 100 09/20/23 09/20/23 09/20/23 12:48 17:50 22:08 Creatinine Estim Creat Clear Calc Estimated GFR POC Glucose 107 182 H 153 H Imaging Radiology Impressions: ITS Impressions Brain MRI 09/19/23 20:33 IMPRESSION: 1. No demonstrated acute intracranial abnormalities. 2. Chronic mild to moderate nonspecific white matter changes, most notably in the deep white matter of the right frontal lobe. Mild to moderate generalized cerebral volume loss. Medications Medications Current Medications Acetaminophen (Acetaminophen 325 Mg Tablet) 650 mg PO Q6H PRN PRN Reason: Headache/Pain Mild Scale (1-3) Last Admin: 09/20/23 15:15 Dose: 650 mg Al Hydroxide/Mg Hydroxide (Magnesium Hydrox/Alum Hydrox 30 Ml Oral.Susp) 30 ml PO Q6H PRN PRN Reason: Heartburn/Nausea Benztropine Mesylate (Benztropine Mesylate 0.5 Mg Tablet) 0.5 mg PO TID PRN PRN Reason: Extrapyramidal Effects Glucose (Glucose Gel 15 Gm Gel..Gram.) 15 gm PO Q15M PRN; Protocol PRN Reason: per Hypoglycemia Standing Ord. Haloperidol (Haloperidol 5 Mg Tablet) 10 mg PO DAILY [facility] Last Admin: 09/20/23 09:01 Dose: 10 mg Hydroxyzine HCl (Hydroxyzine Hcl 25 Mg Tablet) 25 mg PO Q6H PRN PRN Reason: Anxiety Last Admin: 09/13/23 20:27 Dose: 25 mg Dextrose (D10) 250 mls @ 750 mls/hr IV Q15M PRN; Protocol PRN Reason: per Hypoglycemia Standing Ord. Insulin Glargine (Insulin Glargine,Hum.Rec.Anlog 100 Unit/Ml 10 Ml Vial) 20 unit SUBCUT BEDTIME [facility] Last Admin: 09/20/23 22:40 Dose: 20 unit Insulin Human Lispro (Insulin Lispro 100 Unit/Ml 3 Ml Vial) 0 unit SUBCUT QIDACHS [facility]; Protocol Last Admin: 09/20/23 22:37 Dose: Not Given Lamotrigine (Lamotrigine 25 Mg Tablet) 25 mg PO BEDTIME [facility] Last Admin: 09/20/23 22:39 Dose: 25 mg Levothyroxine Sodium (Levothyroxine Sodium 200 Mcg Tablet) 200 mcg PO DAILY [facility] Last Admin: 09/20/23 09:01 Dose: 200 mcg Magnesium Hydroxide (Milk Of Magnesia 30 Ml Oral.Susp) 30 ml PO DAILY PRN PRN Reason: Constipation Memantine (Memantine Hcl 5 Mg Tablet) 5 mg PO BID [facility] Last Admin: 09/20/23 22:39 Dose: 5 mg Metformin HCl (Metformin Hcl Er 500 Mg Tab.Er.24h) 1,000 mg PO DAILY@1700 [facility] Last Admin: 09/20/23 16:31 Dose: 1,000 mg Nicotine Polacrilex (Nicotine Polacrilex 2 Mg Gum) 4 mg BUCCAL Q2H PRN PRN Reason: Nicotine Cravings Trazodone HCl (Trazodone Hcl 50 Mg Tablet) 50 mg PO BEDTIME MRX1 PRN PRN Reason: Insomnia Last Admin: 09/13/23 20:27 Dose: 50 mg Allergies Allergies Allergy/AdvReac Type Severity Reaction Status Date / Time amoxicillin [AMOXICILLIN] Allergy Mild VOMITING/ABD Verified 09/10/23 19:44 PAIN Assessment & Plan Assessment & Plan (1) Schizoaffective disorder: Status: Acute Code(s): F25.9 - Schizoaffective disorder, unspecified (2) Hypothyroidism: Status: Acute Code(s): E03.9 - Hypothyroidism, unspecified (3) Type 2 diabetes mellitus: Status: Acute Code(s): E11.9 - Type 2 diabetes mellitus without complications Plan Patient is a 58 year old male with hx of Schizoaffective d/o and hypothyroid disorder/thyroid coma, stroke and brain aneurysm, who was [place] [facility] [place] Section 12 d/t disorganized behavior, concern for his memory impairment, medications noncompliance and poor ADLs. Plan: CV 15 minute safety checks Continue home medications: Haldol 10mg PO daily Synthroid 200mcg PO daily Obtain labs; A1C/POCs Obtain collateral from sister Obtain records from last hospitalization. MOCA Referral for DMH services if patient is agreeable. encourage medication compliance;consider VARGAS discharge planning 09/11: Elevated fasting blood sugar elevated hemoglobin A1c 9.2 med consult placed put in point of care needed will start metformin Would benefit from clarity over recent hospitalization what this were done details regarding treatment continue Haldol unclear if patient has Healthcare proxy his [place] was low slowed cognition with poor details in depth at times during blankly regarding making judgments Unclear if any of this relates to past coma or 2 hypothyroidism. He does seem more impaired than when last seen unclear when last imaging was. Continue Haldol sitter neuro indira involvement regarding diagnostic picture. Patient does remain paranoid blunted suspicious apathetic. He might benefit from longer- term placement if available and appropriate at a later time involved DMH involvement would be quite helpful 09/12: cont haldol get records ? hcp ? start antidep unclear hx 09/13: Keeping to self. More talkative today. Pt concerned he will be transferred to [facility]. Pt stated, The paper I signed yesterday. Are you going to send me back to the last hospital? That place was horrible . Pt was educated he signed a release of information with Dr. Gonzalez to obtain records from [facility]. Pt was given a copy of the release he signed. Despite this, pt continues to be anxious about being transferred. Pt denies SI/HI/VH/AH. 09/14: Keeping to self. active on unit. showered. Pt reports feeling alright today; pt reports he is worried about where I'm going to go . Pt continues concerned he will be transferred to [facility]. Pt denies SI/HI/VH/AH. 09/15:Pt reports feeling alright today; pt continues to report he is worried about where I'm going to go . Responding with brief responses. Guarded. Observed standing in one place for a long period of time. Appears confused. Pt denies SI/HI/VH/AH. T/W spoke to patient's sister, Ros, with patients verbal consent. Ros reports concerns regarding patients ability to make decisions regarding his mental and physical health. She plans on contacting legal advice on obtaining guardianship of patient. 09/16:Patient's presents similar to yesterday's presentation. Responding with brief responses. Guarded. Observed standing in one place for a long period of time, when asked what he is doing, pt stated, I don't know . Pt reports he plans on contacting his sister today and try to convince her for me to stay there . Pt denies SI/HI/VH/AH. Continue current tx plan. 09/17: brief responses. Guarded. 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 Pt denies SI/HI/VH/AH. T/W and Dr. Gonzalez spoke to patient's sister, Ros. Ros stated being [facility] and plans on finding document. She plans on coming to the hospital on Saturday to be present for [facility] intake. 09/21/2023: No changes Reason for continued inpatient stay Substantial Risk for: inability to function Time Spent With Patient Time: Total time managing care of this patient today ____ minutes.
[2023-09-21] MEDS: Levothyroxine Sodium 200 MCG TABLET PO (08:52)
[2023-09-21] MEDS: Memantine HCl 5 MG TABLET PO ×2 (08:53→22:33)
[2023-09-21] MEDS: HaloperidoL 5 MG TABLET 10 MG PO (08:53)
[2023-09-21] MEDS: hydrOXYzine HCL 25 MG TABLET PO (08:55)
[2023-09-21 09:08] LABS: Glucose, Whole Blood 134 mg/dL (60-115)
--- NOTE | 2023-09-21 12:07 | P.PNPSI_ITS ---
Subjective Subjective Date of Service: 09/20/23 Reason For Visit: paranoia cognitive impairment Subjective Notes: Conditional Voluntary Interim History: Pt repeat moca improved more attentive no gross parania but does not fully reveal thinking process wishes to live in [place] agreeable to [facility] would benefit from [facility] ? need for vna brain mri no change sister vincent pt when at her home when psychotic was difficult to redirect irrational behavior Medication Compliance: Yes Mental Status Exam Mental Status Exam Narrative: Mental Status Exam Narrative: Appearance: casually dressed rumpled flat looking Behavior:cooperative psychomotor:some retardation Speech: soft Thought proccess concrete perseverative slowed mentation Thought content:wanting to live with sister agreeable to referral Mood:flat ok Affect:constricted SI:denies HI:denies VH/AH:none Delusions: Insight/judgment: limited insight regarding illness and decision making Memory/cog: impaired Diagnostics Vital Signs (24Hr): Vital Signs - 24 hr 09/20/23 22:02 09/21/23 08:00 Temperature 97.4 F 98.6 F Pulse Rate 86 70 Respiratory Rate 16 15 Blood Pressure 116/64 117/65 Pulse Oximetry 96 100 Oxygen Delivery Method Room Air Room Air BMI result Body Mass Index 31.2 Labs 09/10/23 20:00 09/19/23 17:32 Labs: Laboratory Results - last 48 hr 09/19/23 09/19/23 09/19/23 17:32 17:38 20:53 Creatinine 1.01 Estim Creat Clear Calc 90.4 Estimated GFR > 60 POC Glucose 116 H 146 H 09/20/23 09/20/23 09/20/23 08:23 12:48 17:50 Creatinine Estim Creat Clear Calc Estimated GFR POC Glucose 100 107 182 H 09/20/23 09/21/23 22:08 09:03 Creatinine Estim Creat Clear Calc Estimated GFR POC Glucose 153 H 134 H Imaging Radiology Impressions: ITS Impressions Brain MRI 09/19/23 20:33 IMPRESSION: 1. No demonstrated acute intracranial abnormalities. 2. Chronic mild to moderate nonspecific white matter changes, most notably in the deep white matter of the right frontal lobe. Mild to moderate generalized cerebral volume loss. Medications Medications Current Medications Acetaminophen (Acetaminophen 325 Mg Tablet) 650 mg PO Q6H PRN PRN Reason: Headache/Pain Mild Scale (1-3) Last Admin: 09/20/23 15:15 Dose: 650 mg Al Hydroxide/Mg Hydroxide (Magnesium Hydrox/Alum Hydrox 30 Ml Oral.Susp) 30 ml PO Q6H PRN PRN Reason: Heartburn/Nausea Benztropine Mesylate (Benztropine Mesylate 0.5 Mg Tablet) 0.5 mg PO TID PRN PRN Reason: Extrapyramidal Effects Glucose (Glucose Gel 15 Gm Gel..Gram.) 15 gm PO Q15M PRN; Protocol PRN Reason: per Hypoglycemia Standing Ord. Haloperidol (Haloperidol 5 Mg Tablet) 10 mg PO DAILY [facility] Last Admin: 09/21/23 08:53 Dose: 10 mg Hydroxyzine HCl (Hydroxyzine Hcl 25 Mg Tablet) 25 mg PO Q6H PRN PRN Reason: Anxiety Last Admin: 09/21/23 08:55 Dose: 25 mg Dextrose (D10) 250 mls @ 750 mls/hr IV Q15M PRN; Protocol PRN Reason: per Hypoglycemia Standing Ord. Insulin Glargine (Insulin Glargine,Hum.Rec.Anlog 100 Unit/Ml 10 Ml Vial) 20 unit SUBCUT BEDTIME [facility] Last Admin: 09/20/23 22:40 Dose: 20 unit Insulin Human Lispro (Insulin Lispro 100 Unit/Ml 3 Ml Vial) 0 unit SUBCUT QIDACHS [facility]; Protocol Last Admin: 09/21/23 09:03 Dose: Not Given Lamotrigine (Lamotrigine 25 Mg Tablet) 25 mg PO BEDTIME [facility] Last Admin: 09/20/23 22:39 Dose: 25 mg Levothyroxine Sodium (Levothyroxine Sodium 200 Mcg Tablet) 200 mcg PO DAILY [facility] Last Admin: 09/21/23 08:52 Dose: 200 mcg Magnesium Hydroxide (Milk Of Magnesia 30 Ml Oral.Susp) 30 ml PO DAILY PRN PRN Reason: Constipation Memantine (Memantine Hcl 5 Mg Tablet) 5 mg PO BID [facility] Last Admin: 09/21/23 08:53 Dose: 5 mg Metformin HCl (Metformin Hcl Er 500 Mg Tab.Er.24h) 1,000 mg PO DAILY@1700 [facility] Last Admin: 09/20/23 16:31 Dose: 1,000 mg Nicotine Polacrilex (Nicotine Polacrilex 2 Mg Gum) 4 mg BUCCAL Q2H PRN PRN Reason: Nicotine Cravings Trazodone HCl (Trazodone Hcl 50 Mg Tablet) 50 mg PO BEDTIME MRX1 PRN PRN Reason: Insomnia Last Admin: 09/13/23 20:27 Dose: 50 mg Allergies Allergies Allergy/AdvReac Type Severity Reaction Status Date / Time amoxicillin [AMOXICILLIN] Allergy Mild VOMITING/ABD Verified 09/10/23 19:44 PAIN Assessment & Plan Assessment & Plan (1) Schizoaffective disorder: Status: Acute Code(s): F25.9 - Schizoaffective disorder, unspecified (2) Hypothyroidism: Status: Acute Code(s): E03.9 - Hypothyroidism, unspecified (3) Type 2 diabetes mellitus: Status: Acute Code(s): E11.9 - Type 2 diabetes mellitus without complications Plan Patient is a 58 year old male with hx of Schizoaffective d/o and hypothyroid disorder/thyroid coma, stroke and brain aneurysm, who was brought to [facility] on a Section 12 d/t disorganized behavior, concern for his memory impairment, medications noncompliance and poor ADLs. Plan: CV 15 minute safety checks Continue home medications: Haldol 10mg PO daily Synthroid 200mcg PO daily Obtain labs; A1C/POCs Obtain collateral from sister Obtain records from last hospitalization. MOCA Referral for DMH services if patient is agreeable. encourage medication compliance;consider LAROSE discharge planning 09/11: Elevated fasting blood sugar elevated hemoglobin A1c 9.2 med consult placed put in point of care needed will start metformin Would benefit from clarity over recent hospitalization what this were done details regarding treatment continue Haldol unclear if patient has Healthcare proxy his [place] was low slowed cognition with poor details in depth at times during blankly regarding making judgments Unclear if any of this relates to past coma or 2 hypothyroidism. He does seem more impaired than when last seen unclear when last imaging was. Continue Haldol sitter neuro indira involvement regarding diagnostic picture. Patient does remain paranoid blunted suspicious apathetic. He might benefit from longer- term placement if available and appropriate at a later time involved DMH involvement would be quite helpful 09/12: cont haldol get records ? hcp ? start antidep unclear hx 09/13: Keeping to self. More talkative today. Pt concerned he will be transferred to [facility]. Pt stated, The paper I signed yesterday. Are you going to send me back to the last hospital? That place was horrible . Pt was educated he signed a release of information with Dr. Gonzalez to obtain records from [facility]. Pt was given a copy of the release he signed. Despite this, pt continues to be anxious about being transferred. Pt denies SI/HI/VH/AH. 09/14: Keeping to self. active on unit. showered. Pt reports feeling alright today; pt reports he is worried about where I'm going to go . Pt continues concerned he will be transferred to [facility]. Pt denies SI/HI/VH/AH. 09/15:Pt reports feeling alright today; pt continues to report he is worried about where I'm going to go . Responding with brief responses. Guarded. Observed standing in one place for a long period of time. Appears confused. Pt denies SI/HI/VH/AH. T/W spoke to patient's sister, Ros, with patients verbal consent. Ros reports concerns regarding patients ability to make decisions regarding his mental and physical health. She plans on contacting legal advice on obtaining guardianship of patient. 09/16:Patient's presents similar to yesterday's presentation. Responding with brief responses. Guarded. Observed standing in one place for a long period of time, when asked what he is doing, pt stated, I don't know . Pt reports he plans on contacting his sister today and try to convince her for me to stay there . Pt denies SI/HI/VH/AH. Continue current tx plan. 09/17: brief responses. Guarded. 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 Pt denies SI/HI/VH/AH. T/W and Dr. Gonzalez spoke to patient's sister, Ros. Ros stated being [facility] and plans on finding document. She plans on coming to the hospital on Saturday to be present for [facility] intake. 09/18 no gross dmitriy flat had been on lamictal in past was stable to some degree on lamictal haldol namenda added 09/20/23 Pt with miramontes affect flat ? dmitriy in past avoid anti dep namenda may have some mood and anxiety benfit [facility] referral limited insight regarding illness Reason for continued inpatient stay Substantial Risk for: inability to function, rapid decompensation and med/psych decompensation Time Spent With Patient Time: Total time managing care of this patient today ____ minutes.
[2023-09-21 12:34] LABS: Glucose, Whole Blood 122 mg/dL (60-115)
--- NOTE | 2023-09-21 15:19 | P.CNNE_ITS ---
History of Present Illness Data of Consult Service Date: 09/21/23 Primary Care Provider: Luigi Hatfield MD HPI Reason for consult: Encephalopathy 58 years old man with complex underlying history including psychotic mental disorder diabetes and hypothyroidism, both of them out of control. His recent TSH was in 70s and blood sugar in 600s. There was no witnessing or complain of any seizure. He did not volunteer any symptoms. Review of Systems 2 Review of Systems: No recent cold or flu-like illness PMFSH Past Medical History Medical History Hypothyroidism Seizures Social History Social History Household Members: None Household Members Other:: Recently released from assisted. Sates he has nobody and no home. Housing: Homeless Do you presently have visiting nurse or other home services: No Unable to assess alcohol history related to: Refusing to respond Patient Tobacco Use Status: Former Tobacco user Tobacco use type: Cigarette Smoked in Last 30 Days: No Patient Interested in Nicotine Replacement: No Use of substances other than those prescribed or required for medical reasons: No Substance Use Type Other:: urine tox screen negative Currently Displaying Signs/Symptoms of Drug Intoxication Withdrawal: No Any prior treatment program specific to substance use: No Have you been hit, kicked, punched, or otherwise hurt by someone within the past year? If so, by whom?: No Do you feel safe in your current relationship?: No Current Relationship Is there a partner from a previous relationship who is making you feel unsafe now?: No Spiritual Healthcare Practices: Believes in God Advance Directives: No Advance Directives Information Provided: No Do you have thoughts of harming others: None Do you have a plan to hurt others: No Plan Recently lost weight without trying: No Eating poorly because of decreased appetite: No Nutrition Risks: No Nutritional Risk service: No Sexual orientation: Straight/Heterosexual Meds Allergies Allergy/AdvReac Type Severity Reaction Status Date / Time amoxicillin [AMOXICILLIN] Allergy Mild VOMITING/ABD Verified 09/10/23 19:44 PAIN Active Medications: Current Medications Acetaminophen (Acetaminophen 325 Mg Tablet) 650 mg PO Q6H PRN PRN Reason: Headache/Pain Mild Scale (1-3) Last Admin: 09/20/23 15:15 Dose: 650 mg Al Hydroxide/Mg Hydroxide (Magnesium Hydrox/Alum Hydrox 30 Ml Oral.Susp) 30 ml PO Q6H PRN PRN Reason: Heartburn/Nausea Benztropine Mesylate (Benztropine Mesylate 0.5 Mg Tablet) 0.5 mg PO TID PRN PRN Reason: Extrapyramidal Effects Glucose (Glucose Gel 15 Gm Gel..Gram.) 15 gm PO Q15M PRN; Protocol PRN Reason: per Hypoglycemia Standing Ord. Haloperidol (Haloperidol 5 Mg Tablet) 10 mg PO DAILY [facility] Last Admin: 09/21/23 08:53 Dose: 10 mg Hydroxyzine HCl (Hydroxyzine Hcl 25 Mg Tablet) 25 mg PO Q6H PRN PRN Reason: Anxiety Last Admin: 09/21/23 08:55 Dose: 25 mg Dextrose (D10) 250 mls @ 750 mls/hr IV Q15M PRN; Protocol PRN Reason: per Hypoglycemia Standing Ord. Insulin Glargine (Insulin Glargine,Hum.Rec.Anlog 100 Unit/Ml 10 Ml Vial) 20 unit SUBCUT BEDTIME [facility] Last Admin: 09/20/23 22:40 Dose: 20 unit Insulin Human Lispro (Insulin Lispro 100 Unit/Ml 3 Ml Vial) 0 unit SUBCUT QIDACHS [facility]; Protocol Last Admin: 09/21/23 12:27 Dose: Not Given Lamotrigine (Lamotrigine 25 Mg Tablet) 25 mg PO BEDTIME [facility] Last Admin: 09/20/23 22:39 Dose: 25 mg Levothyroxine Sodium (Levothyroxine Sodium 200 Mcg Tablet) 200 mcg PO DAILY [facility] Last Admin: 09/21/23 08:52 Dose: 200 mcg Magnesium Hydroxide (Milk Of Magnesia 30 Ml Oral.Susp) 30 ml PO DAILY PRN PRN Reason: Constipation Memantine (Memantine Hcl 5 Mg Tablet) 5 mg PO BID [facility] Last Admin: 09/21/23 08:53 Dose: 5 mg Metformin HCl (Metformin Hcl Er 500 Mg Tab.Er.24h) 1,000 mg PO DAILY@1700 [facility] Last Admin: 09/20/23 16:31 Dose: 1,000 mg Nicotine Polacrilex (Nicotine Polacrilex 2 Mg Gum) 4 mg BUCCAL Q2H PRN PRN Reason: Nicotine Cravings Trazodone HCl (Trazodone Hcl 50 Mg Tablet) 50 mg PO BEDTIME MRX1 PRN PRN Reason: Insomnia Last Admin: 09/13/23 20:27 Dose: 50 mg Physical Exam 2 Vital Signs: Vital Signs: Last Vital Signs Temp 98.6 F 09/21/23 08:00 Pulse 70 09/21/23 08:00 Resp 15 09/21/23 08:00 BP 117/65 09/21/23 08:00 Pulse Ox 100 09/21/23 08:00 O2 Del Method Room Air 09/21/23 08:00 BMI result Body Mass Index 31.2 Neuro: Other: He is alert and awake with flat affect. He talked slowly and sparsely. Despite that, he was able to name simple objects and repeat simple statements. Comprehension was intact. Facial expression were limited with flat affect. Extraocular muscles were intact. Visual guerra are full. There was no focal arm or leg weakness. Deep tendon reflexes were absent with flat plantars. Speech was normal. Results Labs 09/10/23 20:00 09/19/23 17:32 Labs: Brain imaging did not reveal any significant abnormality. Assessment and Plan (1) Toxic metabolic encephalopathy: Status: Acute 58 years old man with underlying psychotic mental disorder recently treated for uncontrolled hypothyroidism and hyperglycemia with TSH in 70s and blood sugar and 600s. Both of these conditions could impact brain and could result in microscopic changes, which could cause encephalopathy in especially impact on memory part of brain. Pathology may not be visible even on MRI of brain. Good medical management for few months might take his brain to recover. Procedures Date of Service Date of Service: 09/21/23
[2023-09-21] MEDS: metFORMIN HCl ER 500 MG TAB.ER.24H 1000 MG PO (17:25)
[2023-09-21 18:05] LABS: Glucose, Whole Blood 110 mg/dL (60-115)
[2023-09-21 19:14] VITALS: BP 116/66; PULSE 80; RESP 16; TEMP 36.6; O2SAT 99
[2023-09-21 22:21] LABS: Glucose, Whole Blood 138 mg/dL (60-115)
[2023-09-21] MEDS: lamoTRIgine 25 MG TABLET PO (22:33)
[2023-09-21] MEDS: Insulin Glargine,Hum.rec.anlog 100 UNIT/ML 10 ML VIAL 20 UNIT SUBCUT (22:37)
[2023-09-22 08:00] VITALS: BP 116/74; PULSE 75; RESP 18; TEMP 36.5; O2SAT 95
[2023-09-22 08:47] LABS: Glucose, Whole Blood 112 mg/dL (60-115)
[2023-09-22] MEDS: Memantine HCl 5 MG TABLET PO ×2 (09:01→20:57)
[2023-09-22] MEDS: HaloperidoL 5 MG TABLET 10 MG PO (09:01)
[2023-09-22] MEDS: Levothyroxine Sodium 200 MCG TABLET PO (09:01)
--- NOTE | 2023-09-22 10:31 | HO.PSYCHPN ---
Subjective Subjective Date of Service: 09/22/23 Reason For Visit: paranoia cognitive impairment Interim History: Met with patient. In hallway. Isolative. Patient reports not having any concerns and feeling fine. Feeling safe and well cared for. Medication Compliance: Yes Side effects from medications: No Attending Groups: Intermittent Review of Systems Acute medical concerns: No Review of Systems Review of Systems unremarkable Constitutional: Reports as per HPI Eyes: Reports as per HPI Reports as per HPI Cardiovascular: Reports as per HPI Respiratory: Reports as per HPI Gastrointestinal: Reports as per HPI Genitourinary: Reports as per HPI Musculoskeletal: Reports as per HPI Skin/Breast: Reports as per HPI Reports as per HPI Psychiatric: Reports as per HPI Endocrine: Reports as per HPI Hematologic/Lymphatic: Reports as per HPI Allergic/Immunologic: Reports as per HPI Mental Status Exam Mental Status Exam Narrative: Mental Status Exam Narrative: Appearance: casually dressed flat looking Behavior:cooperative psychomotor:some retardation Speech: soft Thought proccess concrete perseverative slowed mentation Thought content: No psychosis Mood:flat ok Affect:constricted SI:denies HI:denies VH/AH:none Delusions: Insight/judgment: limited insight regarding illness and decision making Memory/cog: impaired Diagnostics Vital Signs (24Hr): Vital Signs - 24 hr 09/21/23 19:14 09/22/23 08:00 Temperature 97.9 F 97.7 F Pulse Rate 80 75 Respiratory Rate 16 18 Blood Pressure 116/66 116/74 Pulse Oximetry 99 95 Oxygen Delivery Method Room Air Room Air BMI result Body Mass Index 31.2 Labs 09/10/23 20:00 09/19/23 17:32 Labs: Laboratory Results - last 48 hr 09/20/23 09/20/23 09/20/23 12:48 17:50 22:08 POC Glucose 107 182 H 153 H 09/21/23 09/21/23 09/21/23 09:03 12:26 17:47 POC Glucose 134 H 122 H 110 09/21/23 09/22/23 22:15 08:37 POC Glucose 138 H 112 Imaging Radiology Impressions: ITS Impressions Brain MRI 09/19/23 20:33 IMPRESSION: 1. No demonstrated acute intracranial abnormalities. 2. Chronic mild to moderate nonspecific white matter changes, most notably in the deep white matter of the right frontal lobe. Mild to moderate generalized cerebral volume loss. Medications Medications Current Medications Acetaminophen (Acetaminophen 325 Mg Tablet) 650 mg PO Q6H PRN PRN Reason: Headache/Pain Mild Scale (1-3) Last Admin: 09/20/23 15:15 Dose: 650 mg Al Hydroxide/Mg Hydroxide (Magnesium Hydrox/Alum Hydrox 30 Ml Oral.Susp) 30 ml PO Q6H PRN PRN Reason: Heartburn/Nausea Benztropine Mesylate (Benztropine Mesylate 0.5 Mg Tablet) 0.5 mg PO TID PRN PRN Reason: Extrapyramidal Effects Glucose (Glucose Gel 15 Gm Gel..Gram.) 15 gm PO Q15M PRN; Protocol PRN Reason: per Hypoglycemia Standing Ord. Haloperidol (Haloperidol 5 Mg Tablet) 10 mg PO DAILY [facility] Last Admin: 09/22/23 09:01 Dose: 10 mg Hydroxyzine HCl (Hydroxyzine Hcl 25 Mg Tablet) 25 mg PO Q6H PRN PRN Reason: Anxiety Last Admin: 09/21/23 08:55 Dose: 25 mg Dextrose (D10) 250 mls @ 750 mls/hr IV Q15M PRN; Protocol PRN Reason: per Hypoglycemia Standing Ord. Insulin Glargine (Insulin Glargine,Hum.Rec.Anlog 100 Unit/Ml 10 Ml Vial) 20 unit SUBCUT BEDTIME [facility] Last Admin: 09/21/23 22:37 Dose: 20 unit Insulin Human Lispro (Insulin Lispro 100 Unit/Ml 3 Ml Vial) 0 unit SUBCUT QIDACHS [facility]; Protocol Last Admin: 09/22/23 09:01 Dose: Not Given Lamotrigine (Lamotrigine 25 Mg Tablet) 25 mg PO BEDTIME [facility] Last Admin: 09/21/23 22:33 Dose: 25 mg Levothyroxine Sodium (Levothyroxine Sodium 200 Mcg Tablet) 200 mcg PO DAILY [facility] Last Admin: 09/22/23 09:01 Dose: 200 mcg Magnesium Hydroxide (Milk Of Magnesia 30 Ml Oral.Susp) 30 ml PO DAILY PRN PRN Reason: Constipation Memantine (Memantine Hcl 5 Mg Tablet) 5 mg PO BID [facility] Last Admin: 09/22/23 09:01 Dose: 5 mg Metformin HCl (Metformin Hcl Er 500 Mg Tab.Er.24h) 1,000 mg PO DAILY@1700 [facility] Last Admin: 09/21/23 17:25 Dose: 1,000 mg Nicotine Polacrilex (Nicotine Polacrilex 2 Mg Gum) 4 mg BUCCAL Q2H PRN PRN Reason: Nicotine Cravings Trazodone HCl (Trazodone Hcl 50 Mg Tablet) 50 mg PO BEDTIME MRX1 PRN PRN Reason: Insomnia Last Admin: 09/13/23 20:27 Dose: 50 mg Allergies Allergies Allergy/AdvReac Type Severity Reaction Status Date / Time amoxicillin [AMOXICILLIN] Allergy Mild VOMITING/ABD Verified 09/10/23 19:44 PAIN Assessment & Plan Assessment & Plan (1) Schizoaffective disorder: Status: Acute Code(s): F25.9 - Schizoaffective disorder, unspecified (2) Hypothyroidism: Status: Acute Code(s): E03.9 - Hypothyroidism, unspecified (3) Type 2 diabetes mellitus: Status: Acute Code(s): E11.9 - Type 2 diabetes mellitus without complications Plan Patient is a 58 year old male with hx of Schizoaffective d/o and hypothyroid disorder/thyroid coma, stroke and brain aneurysm, who was brought to [facility] ER on a Section 12 d/t disorganized behavior, concern for his memory impairment, medications noncompliance and poor ADLs. Plan: CV 15 minute safety checks Continue home medications: Haldol 10mg PO daily Synthroid 200mcg PO daily Obtain labs; A1C/POCs Obtain collateral from sister Obtain records from last hospitalization. MOCA Referral for DMH services if patient is agreeable. encourage medication compliance;consider VARGAS discharge planning 09/11: Elevated fasting blood sugar elevated hemoglobin A1c 9.2 med consult placed put in point of care needed will start metformin Would benefit from clarity over recent hospitalization what this were done details regarding treatment continue Haldol unclear if patient has Healthcare proxy his [place] was low slowed cognition with poor details in depth at times during blankly regarding making judgments Unclear if any of this relates to past coma or 2 hypothyroidism. He does seem more impaired than when last seen unclear when last imaging was. Continue Haldol sitter neuro indira involvement regarding diagnostic picture. Patient does remain paranoid blunted suspicious apathetic. He might benefit from longer-term placement if available and appropriate at a later time involved DMH involvement would be quite helpful 09/12: cont haldol get records ? hcp ? start antidep unclear hx 09/13: Keeping to self. More talkative today. Pt concerned he will be transferred to [facility]. Pt stated, The paper I signed yesterday. Are you going to send me back to the last hospital? That place was horrible . Pt was educated he signed a release of information with Dr. Gonzalez to obtain records from [facility]. Pt was given a copy of the release he signed. Despite this, pt continues to be anxious about being transferred. Pt denies SI/HI/VH/AH. 09/14: Keeping to self. active on unit. showered. Pt reports feeling alright today; pt reports he is worried about where I'm going to go . Pt continues concerned he will be transferred to [facility]. Pt denies SI/HI/VH/AH. 09/15:Pt reports feeling alright today; pt continues to report he is worried about where I'm going to go . Responding with brief responses. Guarded. Observed standing in one place for a long period of time. Appears confused. Pt denies SI/HI/VH/AH. T/W spoke to patient's sister, Ros, with patients verbal consent. Ros reports concerns regarding patients ability to make decisions regarding his mental and physical health. She plans on contacting legal advice on obtaining guardianship of patient. 09/16:Patient's presents similar to yesterday's presentation. Responding with brief responses. Guarded. Observed standing in one place for a long period of time, when asked what he is doing, pt stated, I don't know . Pt reports he plans on contacting his sister today and try to convince her for me to stay there . Pt denies SI/HI/VH/AH. Continue current tx plan. 09/17: brief responses. Guarded. 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 Pt denies SI/HI/VH/AH. T/W and Dr. Gonzalez spoke to patient's sister, Ros. Ros stated being [facility] and plans on finding document. She plans on coming to the hospital on Saturday to be present for [facility] intake. 09/22/2023: No changes Reason for continued inpatient stay Substantial Risk for: inability to function and rapid decompensation Time Spent With Patient Time: Total time managing care of this patient today ____ minutes.
[2023-09-22 12:39] LABS: Glucose, Whole Blood 115 mg/dL (60-115)
[2023-09-22] MEDS: metFORMIN HCl ER 500 MG TAB.ER.24H 1000 MG PO (17:40)
[2023-09-22] MEDS: Insulin Lispro 100 UNIT/ML 3 ML VIAL SUBCUT ×2 (17:40→20:59)
[2023-09-22 17:55] LABS: Glucose, Whole Blood 175 mg/dL (60-115)
[2023-09-22 20:00] VITALS: BP 115/64; PULSE 95; RESP 18; TEMP 36.8; O2SAT 97
[2023-09-22] MEDS: lamoTRIgine 25 MG TABLET PO (20:57)
[2023-09-22 20:58] LABS: Glucose, Whole Blood 179 mg/dL (60-115)
[2023-09-22] MEDS: Insulin Glargine,Hum.rec.anlog 100 UNIT/ML 10 ML VIAL 20 UNIT SUBCUT (20:58)
[2023-09-23 07:50] VITALS: BP 128/78; PULSE 75; RESP 16; TEMP 36.6; O2SAT 100
[2023-09-23] MEDS: Levothyroxine Sodium 200 MCG TABLET PO (08:33)
[2023-09-23] MEDS: HaloperidoL 5 MG TABLET 10 MG PO (08:34)
[2023-09-23] MEDS: Memantine HCl 5 MG TABLET PO ×2 (08:35→21:13)
[2023-09-23 09:00] LABS: Glucose, Whole Blood 119 mg/dL (60-115)
[2023-09-23] MEDS: metFORMIN HCl ER 500 MG TAB.ER.24H 1000 MG PO (16:07)
[2023-09-23 17:24] LABS: Glucose, Whole Blood 107 mg/dL (60-115)
[2023-09-23 17:35] LABS: Glucose, Whole Blood 165 mg/dL (60-115)
[2023-09-23] MEDS: Insulin Lispro 100 UNIT/ML 3 ML VIAL SUBCUT ×2 (18:20→21:14)
[2023-09-23 20:00] VITALS: BP 126/61; PULSE 88; RESP 16; TEMP 37.4; O2SAT 96
[2023-09-23 20:14] LABS: Glucose, Whole Blood 195 mg/dL (60-115)
[2023-09-23] MEDS: lamoTRIgine 25 MG TABLET PO (21:13)
[2023-09-23] MEDS: Insulin Glargine,Hum.rec.anlog 100 UNIT/ML 10 ML VIAL 20 UNIT SUBCUT (21:15)
--- NOTE | 2023-09-23 23:35 | HO.PSYCHPN ---
Subjective Subjective Date of Service: 09/23/23 Reason For Visit: paranoia cognitive impairment Subjective Notes: Conditional Voluntary Interim History: Patient is somewhat passive apathetic. Difficulty processing information he is flat dysphoric somewhat less paranoid minimal engagement with others Mental Status Exam Mental Status Exam Narrative: Mental Status Exam Narrative: Appearance: casually dressed flat looking Behavior:cooperative psychomotor:some retardation Speech: soft Thought proccess concrete perseverative slowed mentation Thought content: Thought blocking Mood:flat ok Affect:constricted SI:denies HI:denies VH/AH: Less auditory hallucinations Delusions: Insight/judgment: limited insight regarding illness and decision making Memory/cog: impaired Diagnostics Vital Signs (24Hr): Vital Signs - 24 hr 09/23/23 07:50 09/23/23 20:00 Temperature 97.8 F 99.4 F Pulse Rate 75 88 Respiratory Rate 16 16 Blood Pressure 128/78 126/61 Pulse Oximetry 100 96 Oxygen Delivery Method Room Air Room Air BMI result Body Mass Index 31.2 Labs 09/10/23 20:00 09/19/23 17:32 Labs: Laboratory Results - last 48 hr 09/22/23 09/22/23 09/22/23 08:37 12:33 17:37 POC Glucose 112 115 175 H 09/22/23 09/23/23 09/23/23 20:44 08:52 13:00 POC Glucose 179 H 119 H 107 09/23/23 09/23/23 17:25 19:52 POC Glucose 165 H 195 H Imaging Radiology Impressions: ITS Impressions Brain MRI 09/19/23 20:33 IMPRESSION: 1. No demonstrated acute intracranial abnormalities. 2. Chronic mild to moderate nonspecific white matter changes, most notably in the deep white matter of the right frontal lobe. Mild to moderate generalized cerebral volume loss. Medications Medications Current Medications Acetaminophen (Acetaminophen 325 Mg Tablet) 650 mg PO Q6H PRN PRN Reason: Headache/Pain Mild Scale (1-3) Last Admin: 09/20/23 15:15 Dose: 650 mg Al Hydroxide/Mg Hydroxide (Magnesium Hydrox/Alum Hydrox 30 Ml Oral.Susp) 30 ml PO Q6H PRN PRN Reason: Heartburn/Nausea Benztropine Mesylate (Benztropine Mesylate 0.5 Mg Tablet) 0.5 mg PO TID PRN PRN Reason: Extrapyramidal Effects Glucose (Glucose Gel 15 Gm Gel..Gram.) 15 gm PO Q15M PRN; Protocol PRN Reason: per Hypoglycemia Standing Ord. Haloperidol (Haloperidol 5 Mg Tablet) 10 mg PO DAILY [facility] Last Admin: 09/23/23 08:34 Dose: 10 mg Hydroxyzine HCl (Hydroxyzine Hcl 25 Mg Tablet) 25 mg PO Q6H PRN PRN Reason: Anxiety Last Admin: 09/21/23 08:55 Dose: 25 mg Dextrose (D10) 250 mls @ 750 mls/hr IV Q15M PRN; Protocol PRN Reason: per Hypoglycemia Standing Ord. Insulin Glargine (Insulin Glargine,Hum.Rec.Anlog 100 Unit/Ml 10 Ml Vial) 20 unit SUBCUT BEDTIME [facility] Last Admin: 09/23/23 21:15 Dose: 20 unit Insulin Human Lispro (Insulin Lispro 100 Unit/Ml 3 Ml Vial) 0 unit SUBCUT QIDACHS [facility]; Protocol Last Admin: 09/23/23 21:14 Dose: 2 unit Lamotrigine (Lamotrigine 25 Mg Tablet) 25 mg PO BEDTIME [facility] Last Admin: 09/23/23 21:13 Dose: 25 mg Levothyroxine Sodium (Levothyroxine Sodium 200 Mcg Tablet) 200 mcg PO DAILY [facility] Last Admin: 09/23/23 08:33 Dose: 200 mcg Magnesium Hydroxide (Milk Of Magnesia 30 Ml Oral.Susp) 30 ml PO DAILY PRN PRN Reason: Constipation Memantine (Memantine Hcl 5 Mg Tablet) 5 mg PO BID [facility] Last Admin: 09/23/23 21:13 Dose: 5 mg Metformin HCl (Metformin Hcl Er 500 Mg Tab.Er.24h) 1,000 mg PO DAILY@1700 [facility] Last Admin: 09/23/23 16:07 Dose: 1,000 mg Nicotine Polacrilex (Nicotine Polacrilex 2 Mg Gum) 4 mg BUCCAL Q2H PRN PRN Reason: Nicotine Cravings Trazodone HCl (Trazodone Hcl 50 Mg Tablet) 50 mg PO BEDTIME MRX1 PRN PRN Reason: Insomnia Last Admin: 09/13/23 20:27 Dose: 50 mg Allergies Allergies Allergy/AdvReac Type Severity Reaction Status Date / Time amoxicillin [AMOXICILLIN] Allergy Mild VOMITING/ABD Verified 09/10/23 19:44 PAIN Assessment & Plan Assessment & Plan (1) Schizoaffective disorder: Status: Acute Code(s): F25.9 - Schizoaffective disorder, unspecified (2) Hypothyroidism: Status: Acute Code(s): E03.9 - Hypothyroidism, unspecified (3) Type 2 diabetes mellitus: Status: Acute Code(s): E11.9 - Type 2 diabetes mellitus without complications Plan Patient is a 58 year old male with hx of Schizoaffective d/o and hypothyroid disorder/thyroid coma, stroke and brain aneurysm, who was brought to [facility] ER on a Section 12 d/t disorganized behavior, concern for his memory impairment, medications noncompliance and poor ADLs. Plan: CV 15 minute safety checks Continue home medications: Haldol 10mg PO daily Synthroid 200mcg PO daily Obtain labs; A1C/POCs Obtain collateral from sister Obtain records from last hospitalization. MOCA Referral for DMH services if patient is agreeable. encourage medication compliance;consider VARGAS discharge planning 09/11: Elevated fasting blood sugar elevated hemoglobin A1c 9.2 med consult placed put in point of care needed will start metformin Would benefit from clarity over recent hospitalization what this were done details regarding treatment continue Haldol unclear if patient has Healthcare proxy his [place] was low slowed cognition with poor details in depth at times during blankly regarding making judgments Unclear if any of this relates to past coma or 2 hypothyroidism. He does seem more impaired than when last seen unclear when last imaging was. Continue Haldol sitter neuro indira involvement regarding diagnostic picture. Patient does remain paranoid blunted suspicious apathetic. He might benefit from longer-term placement if available and appropriate at a later time involved DMH involvement would be quite helpful 09/12: cont haldol get records ? hcp ? start antidep unclear hx 09/13: Keeping to self. More talkative today. Pt concerned he will be transferred to [facility]. Pt stated, The paper I signed yesterday. Are you going to send me back to the last hospital? That place was horrible . Pt was educated he signed a release of information with Dr. Gonzalez to obtain records from [facility]. Pt was given a copy of the release he signed. Despite this, pt continues to be anxious about being transferred. Pt denies SI/HI/VH/AH. 09/14: Keeping to self. active on unit. showered. Pt reports feeling alright today; pt reports he is worried about where I'm going to go . Pt continues concerned he will be transferred to [facility]. Pt denies SI/HI/VH/AH. 09/15:Pt reports feeling alright today; pt continues to report he is worried about where I'm going to go . Responding with brief responses. Guarded. Observed standing in one place for a long period of time. Appears confused. Pt denies SI/HI/VH/AH. T/W spoke to patient's sister, Ros, with patients verbal consent. Ros reports concerns regarding patients ability to make decisions regarding his mental and physical health. She plans on contacting legal advice on obtaining guardianship of patient. 09/16:Patient's presents similar to yesterday's presentation. Responding with brief responses. Guarded. Observed standing in one place for a long period of time, when asked what he is doing, pt stated, I don't know . Pt reports he plans on contacting his sister today and try to convince her for me to stay there . Pt denies SI/HI/VH/AH. Continue current tx plan. 09/17: brief responses. Guarded. 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 Pt denies SI/HI/VH/AH. T/W and Dr. Gonzalez spoke to patient's sister, Ros. Ros stated being [facility] and plans on finding document. She plans on coming to the hospital on Saturday to be present for [facility] intake. 09/22/2023: No changes 09/23/2023 Patient flat apathetic difficult insight and judgment his sister is healthcare proxy if needed patient is accepting medical treatment Referral to [facility] Reason for continued inpatient stay Substantial Risk for: inability to function and rapid decompensation Time Spent With Patient Time: Total time managing care of this patient today ____ minutes.
[2023-09-24 08:00] VITALS: BP 104/59; PULSE 81; RESP 16; TEMP 36.4; O2SAT 97
[2023-09-24 08:42] LABS: Glucose, Whole Blood 114 mg/dL (60-115)
[2023-09-24] MEDS: Memantine HCl 5 MG TABLET PO ×2 (08:45→21:29)
[2023-09-24] MEDS: HaloperidoL 5 MG TABLET 10 MG PO (08:45)
[2023-09-24] MEDS: Levothyroxine Sodium 200 MCG TABLET PO (08:45)
[2023-09-24 13:03] LABS: Glucose, Whole Blood 235 mg/dL (60-115)
[2023-09-24] MEDS: Insulin Lispro 100 UNIT/ML 3 ML VIAL SUBCUT ×2 (13:56→21:30)
[2023-09-24] MEDS: metFORMIN HCl ER 500 MG TAB.ER.24H 1000 MG PO (17:54)
[2023-09-24 18:01] LABS: Glucose, Whole Blood 139 mg/dL (60-115)
[2023-09-24 20:00] VITALS: BP 121/66; PULSE 88; RESP 16; TEMP 36.9; O2SAT 97
[2023-09-24 21:24] LABS: Glucose, Whole Blood 243 mg/dL (60-115)
[2023-09-24] MEDS: lamoTRIgine 25 MG TABLET PO (21:29)
[2023-09-24] MEDS: Insulin Glargine,Hum.rec.anlog 100 UNIT/ML 10 ML VIAL 20 UNIT SUBCUT (21:31)
--- NOTE | 2023-09-24 23:00 | HO.PSYCHPN ---
Subjective Subjective Date of Service: 09/24/23 Reason For Visit: paranoia cognitive impairment Diagnostics Vital Signs (24Hr): Vital Signs - 24 hr 09/24/23 08:00 09/24/23 20:00 Temperature 97.5 F 98.4 F Pulse Rate 81 88 Respiratory Rate 16 16 Blood Pressure 104/59 L 121/66 Pulse Oximetry 97 97 Oxygen Delivery Method Room Air Room Air BMI result Body Mass Index 31.2 Labs 09/10/23 20:00 09/19/23 17:32 Labs: Laboratory Results - last 48 hr 09/23/23 09/23/23 09/23/23 08:52 13:00 17:25 POC Glucose 119 H 107 165 H 09/23/23 09/24/23 09/24/23 19:52 08:37 12:55 POC Glucose 195 H 114 235 H 09/24/23 09/24/23 17:51 21:20 POC Glucose 139 H 243 H Imaging Radiology Impressions: ITS Impressions Brain MRI 09/19/23 20:33 IMPRESSION: 1. No demonstrated acute intracranial abnormalities. 2. Chronic mild to moderate nonspecific white matter changes, most notably in the deep white matter of the right frontal lobe. Mild to moderate generalized cerebral volume loss. Medications Medications Current Medications Acetaminophen (Acetaminophen 325 Mg Tablet) 650 mg PO Q6H PRN PRN Reason: Headache/Pain Mild Scale (1-3) Last Admin: 09/20/23 15:15 Dose: 650 mg Al Hydroxide/Mg Hydroxide (Magnesium Hydrox/Alum Hydrox 30 Ml Oral.Susp) 30 ml PO Q6H PRN PRN Reason: Heartburn/Nausea Benztropine Mesylate (Benztropine Mesylate 0.5 Mg Tablet) 0.5 mg PO TID PRN PRN Reason: Extrapyramidal Effects Glucose (Glucose Gel 15 Gm Gel..Gram.) 15 gm PO Q15M PRN; Protocol PRN Reason: per Hypoglycemia Standing Ord. Haloperidol (Haloperidol 5 Mg Tablet) 10 mg PO DAILY [facility]NA[facility] Last Admin: 09/24/23 08:45 Dose: 10 mg Hydroxyzine HCl (Hydroxyzine Hcl 25 Mg Tablet) 25 mg PO Q6H PRN PRN Reason: Anxiety Last Admin: 09/21/23 08:55 Dose: 25 mg Dextrose (D10) 250 mls @ 750 mls/hr IV Q15M PRN; Protocol PRN Reason: per Hypoglycemia Standing Ord. Insulin Glargine (Insulin Glargine,Hum.Rec.Anlog 100 Unit/Ml 10 Ml Vial) 20 unit SUBCUT BEDTIME [facility] Last Admin: 09/24/23 21:31 Dose: 20 unit Insulin Human Lispro (Insulin Lispro 100 Unit/Ml 3 Ml Vial) 0 unit SUBCUT QIDACHS [facility]; Protocol Last Admin: 09/24/23 21:30 Dose: 4 unit Lamotrigine (Lamotrigine 25 Mg Tablet) 25 mg PO BEDTIME [facility] Last Admin: 09/24/23 21:29 Dose: 25 mg Levothyroxine Sodium (Levothyroxine Sodium 200 Mcg Tablet) 200 mcg PO DAILY [facility] Last Admin: 09/24/23 08:45 Dose: 200 mcg Magnesium Hydroxide (Milk Of Magnesia 30 Ml Oral.Susp) 30 ml PO DAILY PRN PRN Reason: Constipation Memantine (Memantine Hcl 5 Mg Tablet) 5 mg PO BID [facility] Last Admin: 09/24/23 21:29 Dose: 5 mg Metformin HCl (Metformin Hcl Er 500 Mg Tab.Er.24h) 1,000 mg PO DAILY@1700 [facility] Last Admin: 09/24/23 17:54 Dose: 1,000 mg Nicotine Polacrilex (Nicotine Polacrilex 2 Mg Gum) 4 mg BUCCAL Q2H PRN PRN Reason: Nicotine Cravings Trazodone HCl (Trazodone Hcl 50 Mg Tablet) 50 mg PO BEDTIME MRX1 PRN PRN Reason: Insomnia Last Admin: 09/13/23 20:27 Dose: 50 mg Allergies Allergies Allergy/AdvReac Type Severity Reaction Status Date / Time amoxicillin [AMOXICILLIN] Allergy Mild VOMITING/ABD Verified 09/10/23 19:44 PAIN Assessment & Plan Assessment & Plan (1) Schizoaffective disorder: Status: Acute Code(s): F25.9 - Schizoaffective disorder, unspecified (2) Hypothyroidism: Status: Acute Code(s): E03.9 - Hypothyroidism, unspecified (3) Type 2 diabetes mellitus: Status: Acute Code(s): E11.9 - Type 2 diabetes mellitus without complications Plan Patient is a 58 year old male with hx of Schizoaffective d/o and hypothyroid disorder/thyroid coma, stroke and brain aneurysm, who was brought to [facility] on a Section 12 d/t disorganized behavior, concern for his memory impairment, medications noncompliance and poor ADLs. Plan: CV 15 minute safety checks Continue home medications: Haldol 10mg PO daily Synthroid 200mcg PO daily Obtain labs; A1C/POCs Obtain collateral from sister Obtain records from last hospitalization. MOCA Referral for DMH services if patient is agreeable. encourage medication compliance;consider VARGAS discharge planning 09/11: Elevated fasting blood sugar elevated hemoglobin A1c 9.2 med consult placed put in point of care needed will start metformin Would benefit from clarity over recent hospitalization what this were done details regarding treatment continue Haldol unclear if patient has Healthcare proxy his [place] was low slowed cognition with poor details in depth at times during blankly regarding making judgments Unclear if any of this relates to past coma or 2 hypothyroidism. He does seem more impaired than when last seen unclear when last imaging was. Continue Haldol sitter neuro indira involvement regarding diagnostic picture. Patient does remain paranoid blunted suspicious apathetic. He might benefit from longer-term placement if available and appropriate at a later time involved DMH involvement would be quite helpful 09/12: cont haldol get records ? hcp ? start antidep unclear hx 09/13: Keeping to self. More talkative today. Pt concerned he will be transferred to [facility]. Pt stated, The paper I signed yesterday. Are you going to send me back to the last hospital? That place was horrible . Pt was educated he signed a release of information with Dr. Gonzalez to obtain records from [facility]. Pt was given a copy of the release he signed. Despite this, pt continues to be anxious about being transferred. Pt denies SI/HI/VH/AH. 09/14: Keeping to self. active on unit. showered. Pt reports feeling alright today; pt reports he is worried about where I'm going to go . Pt continues concerned he will be transferred to [facility]. Pt denies SI/HI/VH/AH. 09/15:Pt reports feeling alright today; pt continues to report he is worried about where I'm going to go . Responding with brief responses. Guarded. Observed standing in one place for a long period of time. Appears confused. Pt denies SI/HI/VH/AH. T/W spoke to patient's sister, Ros, with patients verbal consent. Ros reports concerns regarding patients ability to make decisions regarding his mental and physical health. She plans on contacting legal advice on obtaining guardianship of patient. 09/16:Patient's presents similar to yesterday's presentation. Responding with brief responses. Guarded. Observed standing in one place for a long period of time, when asked what he is doing, pt stated, I don't know . Pt reports he plans on contacting his sister today and try to convince her for me to stay there . Pt denies SI/HI/VH/AH. Continue current tx plan. 09/17: brief responses. Guarded. 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 Pt denies SI/HI/VH/AH. T/W and Dr. Gonzalez spoke to patient's sister, Ros. Ros stated being [facility] and plans on finding document. She plans on coming to the hospital on Saturday to be present for [facility] intake. 09/22/2023: No changes 09/23/2023 Patient flat apathetic difficult insight and judgment his sister is healthcare proxy if needed patient is accepting medical treatment Referral to [facility] 09/24/23 Considers starting Haldol Decanoate patient is agreeable superficially difficulty with exec fx was seen [facility] Reason for continued inpatient stay Substantial Risk for: inability to function and rapid decompensation Time Spent With Patient Time: Total time managing care of this patient today ____ minutes.
[2023-09-25 08:00] VITALS: BP 110/68; PULSE 71; RESP 16; TEMP 36.4; O2SAT 100
[2023-09-25] MEDS: HaloperidoL 5 MG TABLET 10 MG PO ×2 (08:25→21:40)
[2023-09-25] MEDS: Levothyroxine Sodium 200 MCG TABLET PO (08:25)
[2023-09-25] MEDS: Memantine HCl 5 MG TABLET PO ×2 (08:25→21:40)
[2023-09-25 08:45] LABS: Glucose, Whole Blood 106 mg/dL (60-115)
[2023-09-25 13:17] LABS: Glucose, Whole Blood 160 mg/dL (60-115)
[2023-09-25] MEDS: Insulin Lispro 100 UNIT/ML 3 ML VIAL SUBCUT ×2 (13:32→21:44)
--- NOTE | 2023-09-25 15:59 | P.PNPSI_ITS ---
Subjective Subjective Date of Service: 09/25/23 Reason For Visit: paranoia cognitive impairment Subjective Notes: Conditional Voluntary Interim History: Pt depressed withdrawnapathetic disinterested slowed mentation difficulty processing material only fx when cued to do so no dmitriy denies si Medication Compliance: Yes Mental Status Exam Mental Status Exam Narrative: Mental Status Exam Narrative: Appearance: casually dressed flat looking Behavior:cooperative psychomotor:some retardation Speech: soft Thought proccess concrete perseverative slowed mentation Thought content: Thought blocking difficulty taking in information overwhelmed at thought of not living with family member Mood:flat Affect:constricted SI:denies HI:denies VH/AH: Less auditory hallucinations Delusions:some suspiciousness Insight/judgment: limited insight regarding illness and decision making Memory/cog: impaired Diagnostics Vital Signs (24Hr): Vital Signs - 24 hr 09/24/23 20:00 09/25/23 08:00 Temperature 98.4 F 97.5 F Pulse Rate 88 71 Respiratory Rate 16 16 Blood Pressure 121/66 110/68 Pulse Oximetry 97 100 Oxygen Delivery Method Room Air Room Air BMI result Body Mass Index 31.2 Labs 09/10/23 20:00 09/19/23 17:32 Labs: Laboratory Results - last 48 hr 09/23/23 09/23/23 09/23/23 13:00 17:25 19:52 POC Glucose 107 165 H 195 H 09/24/23 09/24/23 09/24/23 08:37 12:55 17:51 POC Glucose 114 235 H 139 H 09/24/23 09/25/23 09/25/23 21:20 08:32 13:05 POC Glucose 243 H 106 160 H Imaging Radiology Impressions: ITS Impressions Brain MRI 09/19/23 20:33 IMPRESSION: 1. No demonstrated acute intracranial abnormalities. 2. Chronic mild to moderate nonspecific white matter changes, most notably in the deep white matter of the right frontal lobe. Mild to moderate generalized cerebral volume loss. Medications Medications Current Medications Acetaminophen (Acetaminophen 325 Mg Tablet) 650 mg PO Q6H PRN PRN Reason: Headache/Pain Mild Scale (1-3) Last Admin: 09/20/23 15:15 Dose: 650 mg Al Hydroxide/Mg Hydroxide (Magnesium Hydrox/Alum Hydrox 30 Ml Oral.Susp) 30 ml PO Q6H PRN PRN Reason: Heartburn/Nausea Benztropine Mesylate (Benztropine Mesylate 0.5 Mg Tablet) 0.5 mg PO TID PRN PRN Reason: Extrapyramidal Effects Glucose (Glucose Gel 15 Gm Gel..Gram.) 15 gm PO Q15M PRN; Protocol PRN Reason: per Hypoglycemia Standing Ord. Haloperidol (Haloperidol 5 Mg Tablet) 10 mg PO BEDTIME [facility] Hydroxyzine HCl (Hydroxyzine Hcl 25 Mg Tablet) 25 mg PO Q6H PRN PRN Reason: Anxiety Last Admin: 09/21/23 08:55 Dose: 25 mg Dextrose (D10) 250 mls @ 750 mls/hr IV Q15M PRN; Protocol PRN Reason: per Hypoglycemia Standing Ord. Insulin Glargine (Insulin Glargine,Hum.Rec.Anlog 100 Unit/Ml 10 Ml Vial) 20 unit SUBCUT BEDTIME [facility] Last Admin: 09/24/23 21:31 Dose: 20 unit Insulin Human Lispro (Insulin Lispro 100 Unit/Ml 3 Ml Vial) 0 unit SUBCUT QIDACHS [facility]; Protocol Last Admin: 09/25/23 13:32 Dose: 2 unit Lamotrigine (Lamotrigine 25 Mg Tablet) 25 mg PO BEDTIME [facility] Last Admin: 09/24/23 21:29 Dose: 25 mg Levothyroxine Sodium (Levothyroxine Sodium 200 Mcg Tablet) 200 mcg PO DAILY [facility] Last Admin: 09/25/23 08:25 Dose: 200 mcg Magnesium Hydroxide (Milk Of Magnesia 30 Ml Oral.Susp) 30 ml PO DAILY PRN PRN Reason: Constipation Memantine (Memantine Hcl 5 Mg Tablet) 5 mg PO BID [facility] Last Admin: 09/25/23 08:25 Dose: 5 mg Metformin HCl (Metformin Hcl Er 500 Mg Tab.Er.24h) 1,000 mg PO DAILY@1700 [facility] Last Admin: 09/24/23 17:54 Dose: 1,000 mg Nicotine Polacrilex (Nicotine Polacrilex 2 Mg Gum) 4 mg BUCCAL Q2H PRN PRN Reason: Nicotine Cravings Trazodone HCl (Trazodone Hcl 50 Mg Tablet) 50 mg PO BEDTIME MRX1 PRN PRN Reason: Insomnia Last Admin: 09/13/23 20:27 Dose: 50 mg Allergies Allergies Allergy/AdvReac Type Severity Reaction Status Date / Time amoxicillin [AMOXICILLIN] Allergy Mild VOMITING/ABD Verified 09/10/23 19:44 PAIN Assessment & Plan Assessment & Plan (1) Schizoaffective disorder: Status: Acute Code(s): F25.9 - Schizoaffective disorder, unspecified (2) Hypothyroidism: Status: Acute Code(s): E03.9 - Hypothyroidism, unspecified (3) Type 2 diabetes mellitus: Status: Acute Code(s): E11.9 - Type 2 diabetes mellitus without complications Plan Patient is a 58 year old male with hx of Schizoaffective d/o and hypothyroid disorder/thyroid coma, stroke and brain aneurysm, who was brought to [facility] on a Section 12 d/t disorganized behavior, concern for his memory impairment, medications noncompliance and poor ADLs. Plan: CV 15 minute safety checks Continue home medications: Haldol 10mg PO daily Synthroid 200mcg PO daily Obtain labs; A1C/POCs Obtain collateral from sister Obtain records from last hospitalization. MOCA Referral for DMH services if patient is agreeable. encourage medication compliance;consider VARGAS discharge planning 09/11: Elevated fasting blood sugar elevated hemoglobin A1c 9.2 med consult placed put in point of care needed will start metformin Would benefit from clarity over recent hospitalization what this were done details regarding treatment continue Haldol unclear if patient has Healthcare proxy his [place] was low slowed cognition with poor details in depth at times during blankly regarding making judgments Unclear if any of this relates to past coma or 2 hypothyroidism. He does seem more impaired than when last seen unclear when last imaging was. Continue Haldol sitter neuro indira involvement regarding diagnostic picture. Patient does remain paranoid blunted suspicious apathetic. He might benefit from longer- term placement if available and appropriate at a later time involved DMH involvement would be quite helpful 09/12: cont haldol get records ? hcp ? start antidep unclear hx 09/13: Keeping to self. More talkative today. Pt concerned he will be transferred to [facility]. Pt stated, The paper I signed yesterday. Are you going to send me back to the last hospital? That place was horrible . Pt was educated he signed a release of information with Dr. Gonzalez to obtain records from [facility]. Pt was given a copy of the release he signed. Despite this, pt continues to be anxious about being transferred. Pt denies SI/HI/VH/AH. 09/14: Keeping to self. active on unit. showered. Pt reports feeling alright today; pt reports he is worried about where I'm going to go . Pt continues concerned he will be transferred to [facility]. Pt denies SI/HI/VH/AH. 09/15:Pt reports feeling alright today; pt continues to report he is worried about where I'm going to go . Responding with brief responses. Guarded. Observed standing in one place for a long period of time. Appears confused. Pt denies SI/HI/VH/AH. T/W spoke to patient's sister, Ros, with patients verbal consent. Ros reports concerns regarding patients ability to make decisions regarding his mental and physical health. She plans on contacting legal advice on obtaining guardianship of patient. 09/16:Patient's presents similar to yesterday's presentation. Responding with brief responses. Guarded. Observed standing in one place for a long period of time, when asked what he is doing, pt stated, I don't know . Pt reports he plans on contacting his sister today and try to convince her for me to stay there . Pt denies SI/HI/VH/AH. Continue current tx plan. 09/17: brief responses. Guarded. Continues to online publisher one place for a long period of time, when asked what he is doing, pt stated, I don't know . Pt denies SI/HI/VH/AH. T/W and Dr. Gonzalez spoke to patient's sister, Ros. Ros stated being [facility] and plans on finding document. She plans on coming to the hospital on Saturday to be present for [facility] intake. 09/22/2023: No changes 09/23/2023 Patient flat apathetic difficult insight and judgment his sister is healthcare proxy if needed patient is accepting medical treatment Referral to [facility] 09/24/23 Considers starting Haldol Decanoate patient is agreeable superficially difficulty with exec fx was seen [facility] 09/25/23 Pt seen in f/u mood flat dysphoric difficulty engaging in conversation preoccupied with thought he wont be living with family thing slowed apathetic no clear response with [place] ? some improvement inc lamictal start low dose sertraline inc lamictal ck tsh Reason for continued inpatient stay Substantial Risk for: inability to function, rapid decompensation and med/psych decompensation Time Spent With Patient Time: Total time managing care of this patient today ____ minutes.
[2023-09-25 17:42] LABS: Glucose, Whole Blood 139 mg/dL (60-115)
[2023-09-25] MEDS: metFORMIN HCl ER 500 MG TAB.ER.24H 1000 MG PO (18:19)
[2023-09-25 20:53] VITALS: BP 117/71; PULSE 93; TEMP 36.6; O2SAT 96
[2023-09-25 21:37] LABS: Glucose, Whole Blood 237 mg/dL (60-115)
[2023-09-25] MEDS: lamoTRIgine 25 MG TABLET PO (21:40)
[2023-09-25] MEDS: Insulin Glargine,Hum.rec.anlog 100 UNIT/ML 10 ML VIAL 20 UNIT SUBCUT (21:44)
[2023-09-26 07:00] VITALS: BMI 31.1
[2023-09-26 08:00] VITALS: BP 102/65; PULSE 78; RESP 16; TEMP 36.5; O2SAT 98
[2023-09-26 08:06] LABS: Creatinine Clr Calc Pharmacy 101.4; Estimated Glomerular Filt Rate > 60
[2023-09-26 08:49] LABS: Glucose, Whole Blood 156 mg/dL (60-115)
[2023-09-26] MEDS: Sertraline HCL 25 MG TABLET PO (09:13)
[2023-09-26] MEDS: Levothyroxine Sodium 200 MCG TABLET PO (09:13)
[2023-09-26] MEDS: Memantine HCl 5 MG TABLET PO ×2 (09:13→20:15)
[2023-09-26] MEDS: Insulin Lispro 100 UNIT/ML 3 ML VIAL SUBCUT (09:22)
--- NOTE | 2023-09-26 10:19 | P.HPPS_ITS ---
HPI Chief Complaint: paranoia cognitive impairment HPI Past Psychiatric History: pt does not currently have outpatient psychiatric providers. Med trials: Risperidal, mirtazepine, depakote, lamictal, haldol Per last admission: reports 2x psychiatric hospitalizations, hx overdose of pills; he says he was not really tried to kill himself but just needed someone to talk to and the admission was helpful. [facility] Medical History Hypothyroidism Seizures Family History: Reports extensive family history of alcoholism Social History: Patient from his ; has 2 adult children. Homeless Dropped out of school in the 10th grade to work Grew up with his mother Little historical contact with his father who is now Patient is the youngest of 5 siblings Trauma History: Denies Diagnostics Vital Signs (24Hr): Vital Signs - 24 hr 09/25/23 20:53 09/26/23 08:00 Temperature 97.8 F 97.7 F Pulse Rate 93 78 Respiratory Rate 16 Blood Pressure 117/71 102/65 Pulse Oximetry 96 98 Oxygen Delivery Method Room Air Room Air BMI result Body Mass Index 31.1 Labs 09/10/23 20:00 09/26/23 07:32 Labs: Laboratory Results - last 48 hr 09/24/23 09/24/23 09/24/23 12:55 17:51 21:20 Creatinine Estim Creat Clear Calc Estimated GFR POC Glucose 235 H 139 H 243 H 09/25/23 09/25/23 09/25/23 08:32 13:05 17:32 Creatinine Estim Creat Clear Calc Estimated GFR POC Glucose 106 160 H 139 H 09/25/23 09/26/23 09/26/23 21:32 07:32 08:40 Creatinine 0.90 Estim Creat Clear Calc 101.4 Estimated GFR > 60 POC Glucose 237 H 156 H Imaging Radiology Impressions: ITS Impressions Brain MRI 09/19/23 20:33 IMPRESSION: 1. No demonstrated acute intracranial abnormalities. 2. Chronic mild to moderate nonspecific white matter changes, most notably in the deep white matter of the right frontal lobe. Mild to moderate generalized cerebral volume loss. Meds/Allergies Allergies Allergies Allergy/AdvReac Type Severity Reaction Status Date / Time amoxicillin [AMOXICILLIN] Allergy Mild VOMITING/ABD Verified 09/10/23 19:44 PAIN Assessment & Plan Statement Statement: I have reviewed the history and physical and performed a pertinent examination on my patient. No changes have occurred unless specified. If the History and Physical was not performed prior to admission, the Hospitalist's service will be consulted for completing the admission physical. Time Spent With Patient Time: Total time managing care of this patient today ____ minutes.
--- NOTE | 2023-09-26 10:19 | HO.PSYCHPN ---
Subjective Subjective Date of Service: 09/26/23 Reason For Visit: paranoia cognitive impairment Subjective Notes: Conditional Voluntary Interim History: Patient depressed flat withdrawn often staring taking time to respond depressed feels it is delusional that he can not live with his sister since of unreality slowed mentation depressed Lamictal sertraline added Abilify started patient depressed difficult to engage in going to [facility] Mental Status Exam Mental Status Exam Narrative: Mental Status Exam Narrative: Appearance: Behavior: Needs encouragement to leave the room often staring in space psychomotor: Psychomotor retarded Speech: Mumbling low volume limited prosody Thought proccess concrete marked slowing Thought content: It is delusional sense of on reality that he is not living with his sister at other times alludes to conspiracy Mood: Depressed flat anxious Affect: Constricted SI:denies HI:denies VH/AH:none not forthcoming but but hears people mumbling Delusions: Regarding house Insight/judgment: Marked lack of insight and judgment Memory/cog: Diagnostics Vital Signs (24Hr): Vital Signs - 24 hr 09/25/23 20:53 09/26/23 08:00 Temperature 97.8 F 97.7 F Pulse Rate 93 78 Respiratory Rate 16 Blood Pressure 117/71 102/65 Pulse Oximetry 96 98 Oxygen Delivery Method Room Air Room Air BMI result Body Mass Index 31.1 Labs 09/10/23 20:00 09/26/23 07:32 Labs: Laboratory Results - last 48 hr 09/24/23 09/24/23 09/24/23 12:55 17:51 21:20 Creatinine Estim Creat Clear Calc Estimated GFR POC Glucose 235 H 139 H 243 H 09/25/23 09/25/23 09/25/23 08:32 13:05 17:32 Creatinine Estim Creat Clear Calc Estimated GFR POC Glucose 106 160 H 139 H 09/25/23 09/26/23 09/26/23 21:32 07:32 08:40 Creatinine 0.90 Estim Creat Clear Calc 101.4 Estimated GFR > 60 POC Glucose 237 H 156 H Imaging Radiology Impressions: ITS Impressions Brain MRI 09/19/23 20:33 IMPRESSION: 1. No demonstrated acute intracranial abnormalities. 2. Chronic mild to moderate nonspecific white matter changes, most notably in the deep white matter of the right frontal lobe. Mild to moderate generalized cerebral volume loss. Medications Medications Current Medications Acetaminophen (Acetaminophen 325 Mg Tablet) 650 mg PO Q6H PRN PRN Reason: Headache/Pain Mild Scale (1-3) Last Admin: 09/20/23 15:15 Dose: 650 mg Al Hydroxide/Mg Hydroxide (Magnesium Hydrox/Alum Hydrox 30 Ml Oral.Susp) 30 ml PO Q6H PRN PRN Reason: Heartburn/Nausea Benztropine Mesylate (Benztropine Mesylate 0.5 Mg Tablet) 0.5 mg PO TID PRN PRN Reason: Extrapyramidal Effects Glucose (Glucose Gel 15 Gm Gel..Gram.) 15 gm PO Q15M PRN; Protocol PRN Reason: per Hypoglycemia Standing Ord. Haloperidol (Haloperidol 5 Mg Tablet) 10 mg PO BEDTIME COUNTS INCLUDE 234 BEDS AT THE [facility] Last Admin: 09/25/23 21:40 Dose: 10 mg Hydroxyzine HCl (Hydroxyzine Hcl 25 Mg Tablet) 25 mg PO Q6H PRN PRN Reason: Anxiety Last Admin: 09/21/23 08:55 Dose: 25 mg Dextrose (D10) 250 mls @ 750 mls/hr IV Q15M PRN; Protocol PRN Reason: per Hypoglycemia Standing Ord. Insulin Glargine (Insulin Glargine,Hum.Rec.Anlog 100 Unit/Ml 10 Ml Vial) 20 unit SUBCUT BEDTIME COUNTS INCLUDE 234 BEDS AT THE [facility] Last Admin: 09/25/23 21:44 Dose: 20 unit Insulin Human Lispro (Insulin Lispro 100 Unit/Ml 3 Ml Vial) 0 unit SUBCUT QIDACHS COUNTS INCLUDE 234 BEDS AT THE [facility]; Protocol Last Admin: 09/26/23 09:22 Dose: 2 unit Lamotrigine (Lamotrigine 25 Mg Tablet) 50 mg PO BEDTIME COUNTS INCLUDE 234 BEDS AT THE [facility] Levothyroxine Sodium (Levothyroxine Sodium 200 Mcg Tablet) 200 mcg PO DAILY COUNTS INCLUDE 234 BEDS AT THE [facility] Last Admin: 09/26/23 09:13 Dose: 200 mcg Magnesium Hydroxide (Milk Of Magnesia 30 Ml Oral.Susp) 30 ml PO DAILY PRN PRN Reason: Constipation Memantine (Memantine Hcl 5 Mg Tablet) 5 mg PO BID COUNTS INCLUDE 234 BEDS AT THE [facility] Last Admin: 09/26/23 09:13 Dose: 5 mg Metformin HCl (Metformin Hcl Er 500 Mg Tab.Er.24h) 1,000 mg PO DAILY@1700 COUNTS INCLUDE 234 BEDS AT THE [facility] Last Admin: 09/25/23 18:19 Dose: 1,000 mg Nicotine Polacrilex (Nicotine Polacrilex 2 Mg Gum) 4 mg BUCCAL Q2H PRN PRN Reason: Nicotine Cravings Sertraline HCl (Sertraline Hcl 25 Mg Tablet) 25 mg PO DAILY [facility] Last Admin: 09/26/23 09:13 Dose: 25 mg Trazodone HCl (Trazodone Hcl 50 Mg Tablet) 50 mg PO BEDTIME MRX1 PRN PRN Reason: Insomnia Last Admin: 09/13/23 20:27 Dose: 50 mg Allergies Allergies Allergy/AdvReac Type Severity Reaction Status Date / Time amoxicillin [AMOXICILLIN] Allergy Mild VOMITING/ABD Verified 09/10/23 19:44 PAIN Assessment & Plan Assessment & Plan (1) Schizoaffective disorder: Status: Acute Code(s): F25.9 - Schizoaffective disorder, unspecified (2) Hypothyroidism: Status: Acute Code(s): E03.9 - Hypothyroidism, unspecified (3) Type 2 diabetes mellitus: Status: Acute Code(s): E11.9 - Type 2 diabetes mellitus without complications Plan Patient is a 58 year old male with hx of Schizoaffective d/o and hypothyroid disorder/thyroid coma, stroke and brain aneurysm, who was brought to [facility] ER on a Section 12 d/t disorganized behavior, concern for his memory impairment, medications noncompliance and poor ADLs. Plan: CV 15 minute safety checks Continue home medications: Haldol 10mg PO daily Synthroid 200mcg PO daily Obtain labs; A1C/POCs Obtain collateral from sister Obtain records from last hospitalization. MOCA Referral for DMH services if patient is agreeable. encourage medication compliance;consider VARGAS discharge planning 09/11: Elevated fasting blood sugar elevated hemoglobin A1c 9.2 med consult placed put in point of care needed will start metformin Would benefit from clarity over recent hospitalization what this were done details regarding treatment continue Haldol unclear if patient has Healthcare proxy his [place] was low slowed cognition with poor details in depth at times during blankly regarding making judgments Unclear if any of this relates to past coma or 2 hypothyroidism. He does seem more impaired than when last seen unclear when last imaging was. Continue Haldol sitter neuro indira involvement regarding diagnostic picture. Patient does remain paranoid blunted suspicious apathetic. He might benefit from longer-term placement if available and appropriate at a later time involved DMH involvement would be quite helpful 09/12: cont haldol get records ? hcp ? start antidep unclear hx 09/13: Keeping to self. More talkative today. Pt concerned he will be transferred to [facility]. Pt stated, The paper I signed yesterday. Are you going to send me back to the last hospital? That place was horrible . Pt was educated he signed a release of information with Dr. Gonzalez to obtain records from [facility]. Pt was given a copy of the release he signed. Despite this, pt continues to be anxious about being transferred. Pt denies SI/HI/VH/AH. 09/14: Keeping to self. active on unit. showered. Pt reports feeling alright today; pt reports he is worried about where I'm going to go . Pt continues concerned he will be transferred to [facility]. Pt denies SI/HI/VH/AH. 09/15:Pt reports feeling alright today; pt continues to report he is worried about where I'm going to go . Responding with brief responses. Guarded. Observed standing in one place for a long period of time. Appears confused. Pt denies SI/HI/VH/AH. T/W spoke to patient's sister, Ros, with patients verbal consent. Ros reports concerns regarding patients ability to make decisions regarding his mental and physical health. She plans on contacting legal advice on obtaining guardianship of patient. 09/16:Patient's presents similar to yesterday's presentation. Responding with brief responses. Guarded. Observed standing in one place for a long period of time, when asked what he is doing, pt stated, I don't know . Pt reports he plans on contacting his sister today and try to convince her for me to stay there . Pt denies SI/HI/VH/AH. Continue current tx plan. 09/17: brief responses. Guarded. 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 Pt denies SI/HI/VH/AH. T/W and Dr. Gonzalez spoke to patient's sister, Ros. Ros stated being [facility] H[facility] and plans on finding document. She plans on coming to the hospital on Saturday to be present for [facility] intake. 09/22/2023: No changes 09/23/2023 Patient flat apathetic difficult insight and judgment his sister is healthcare proxy if needed patient is accepting medical treatment Referral to [facility] 09/24/23 Considers starting Haldol Decanoate patient is agreeable superficially difficulty with exec fx was seen [facility] 09/25/23 Pt seen in f/u mood flat dysphoric difficulty engaging in conversation preoccupied with thought he wont be living with family thing slowed apathetic no clear response with namenda ? some improvement inc lamictal start low dose sertraline inc lamictal ck tsh 09/26/2023 Start Abilify as augmentation with Haldol see if can be more stimulating regarding depressed mood apathetic limited engagement sertraline 50 mg Lamictal 25 b.i.d. referral to [facility] which would have structure unclear if patient can engage with this he remains quite depressed has delusional beliefs regarding housing and that things have been done he has repeatedly tried to reach out to his sister denies active SI needs much help dressing talking with others encouragement to eat severe thought blocking Abilify might be more stimulating than Haldol which can be more dulling Reason for continued inpatient stay Substantial Risk for: inability to function, rapid decompensation and med/psych decompensation Time Spent With Patient Time: Total time managing care of this patient today ____ minutes.
[2023-09-26 12:48] LABS: Glucose, Whole Blood 149 mg/dL (60-115)
[2023-09-26 17:49] LABS: Glucose, Whole Blood 148 mg/dL (60-115)
[2023-09-26] MEDS: metFORMIN HCl ER 500 MG TAB.ER.24H 1000 MG PO (17:54)
[2023-09-26 20:00] VITALS: BP 143/79; PULSE 92; RESP 18; TEMP 37.1; O2SAT 95
[2023-09-26] MEDS: lamoTRIgine 25 MG TABLET 50 MG PO (20:15)
[2023-09-26] MEDS: Insulin Glargine,Hum.rec.anlog 100 UNIT/ML 10 ML VIAL 20 UNIT SUBCUT (20:15)
[2023-09-26] MEDS: HaloperidoL 5 MG TABLET 10 MG PO (20:15)
[2023-09-27 07:40] VITALS: BP 123/84; PULSE 104; RESP 18; TEMP 36.7; O2SAT 96
[2023-09-27] MEDS: Levothyroxine Sodium 200 MCG TABLET PO (09:24)
[2023-09-27] MEDS: Memantine HCl 5 MG TABLET PO ×2 (09:25→22:14)
[2023-09-27] MEDS: Sertraline HCL 50 MG TABLET PO (09:26)
[2023-09-27] MEDS: ARIPiprazole 2 MG TABLET 4 MG PO (09:26)
[2023-09-27 09:36] LABS: Glucose, Whole Blood 97 mg/dL (60-115)
[2023-09-27 12:52] LABS: Glucose, Whole Blood 133 mg/dL (60-115)
--- NOTE | 2023-09-27 16:11 | HO.PSYCHPN ---
Subjective Subjective Date of Service: 09/27/23 Reason For Visit: paranoia cognitive impairment Mental Status Exam Mental Status Exam Narrative: Mental Status Exam Narrative: Appearance: Behavior: Needs encouragement to leave the room often staring in space but improving psychomotor: Psychomotor retarded Speech: Mumbling low volume limited prosody some improvement Thought proccess concrete marked slowing Thought content: It is delusional sense of on reality that he is not living with his sister at other times alludes to conspiracy other timres better perspective Mood: Depressed flat anxious Affect: Constricted SI:denies HI:denies VH/AH:none not forthcoming but but hears people mumbling Delusions: Regarding house Insight/judgment: Marked lack of insight and judgment Memory/cog: Diagnostics Vital Signs (24Hr): Vital Signs - 24 hr 09/26/23 20:00 09/27/23 07:40 Temperature 98.7 F 98.0 F Pulse Rate 92 104 H Respiratory Rate 18 18 Blood Pressure 143/79 H 123/84 Pulse Oximetry 95 96 Oxygen Delivery Method Room Air Room Air BMI result Body Mass Index 31.1 Labs 09/10/23 20:00 09/26/23 07:32 Labs: Laboratory Results - last 48 hr 09/25/23 09/25/23 09/26/23 17:32 21:32 07:32 Creatinine 0.90 Estim Creat Clear Calc 101.4 Estimated GFR > 60 POC Glucose 139 H 237 H 09/26/23 09/26/23 09/26/23 08:40 12:43 17:46 Creatinine Estim Creat Clear Calc Estimated GFR POC Glucose 156 H 149 H 148 H 09/27/23 09/27/23 09:26 12:47 Creatinine Estim Creat Clear Calc Estimated GFR POC Glucose 97 133 H Imaging Radiology Impressions: ITS Impressions Brain MRI 09/19/23 20:33 IMPRESSION: 1. No demonstrated acute intracranial abnormalities. 2. Chronic mild to moderate nonspecific white matter changes, most notably in the deep white matter of the right frontal lobe. Mild to moderate generalized cerebral volume loss. Medications Medications Current Medications Acetaminophen (Acetaminophen 325 Mg Tablet) 650 mg PO Q6H PRN PRN Reason: Headache/Pain Mild Scale (1-3) Last Admin: 09/20/23 15:15 Dose: 650 mg Al Hydroxide/Mg Hydroxide (Magnesium Hydrox/Alum Hydrox 30 Ml Oral.Susp) 30 ml PO Q6H PRN PRN Reason: Heartburn/Nausea Aripiprazole (Aripiprazole 2 Mg Tablet) 4 mg PO DAILY [facility] Last Admin: 09/27/23 09:26 Dose: 4 mg Benztropine Mesylate (Benztropine Mesylate 0.5 Mg Tablet) 0.5 mg PO TID PRN PRN Reason: Extrapyramidal Effects Glucose (Glucose Gel 15 Gm Gel..Gram.) 15 gm PO Q15M PRN; Protocol PRN Reason: per Hypoglycemia Standing Ord. Haloperidol (Haloperidol 5 Mg Tablet) 10 mg PO BEDTIME [facility] Last Admin: 09/26/23 20:15 Dose: 10 mg Hydroxyzine HCl (Hydroxyzine Hcl 25 Mg Tablet) 25 mg PO Q6H PRN PRN Reason: Anxiety Last Admin: 09/21/23 08:55 Dose: 25 mg Dextrose (D10) 250 mls @ 750 mls/hr IV Q15M PRN; Protocol PRN Reason: per Hypoglycemia Standing Ord. Insulin Glargine (Insulin Glargine,Hum.Rec.Anlog 100 Unit/Ml 10 Ml Vial) 20 unit SUBCUT BEDTIME [facility] Last Admin: 09/26/23 20:15 Dose: 20 unit Insulin Human Lispro (Insulin Lispro 100 Unit/Ml 3 Ml Vial) 0 unit SUBCUT QIDACHS [facility]; Protocol Last Admin: 09/27/23 12:57 Dose: Not Given Lamotrigine (Lamotrigine 25 Mg Tablet) 50 mg PO BEDTIME [facility] Last Admin: 09/26/23 20:15 Dose: 50 mg Levothyroxine Sodium (Levothyroxine Sodium 200 Mcg Tablet) 200 mcg PO DAILY [facility] Last Admin: 09/27/23 09:24 Dose: 200 mcg Magnesium Hydroxide (Milk Of Magnesia 30 Ml Oral.Susp) 30 ml PO DAILY PRN PRN Reason: Constipation Memantine (Memantine Hcl 5 Mg Tablet) 5 mg PO BID [facility] Last Admin: 09/27/23 09:25 Dose: 5 mg Metformin HCl (Metformin Hcl Er 500 Mg Tab.Er.24h) 1,000 mg PO DAILY@1700 [facility] Last Admin: 09/26/23 17:54 Dose: 1,000 mg Nicotine Polacrilex (Nicotine Polacrilex 2 Mg Gum) 4 mg BUCCAL Q2H PRN PRN Reason: Nicotine Cravings Sertraline HCl (Sertraline Hcl 50 Mg Tablet) 50 mg PO DAILY [facility] Last Admin: 09/27/23 09:26 Dose: 50 mg Trazodone HCl (Trazodone Hcl 50 Mg Tablet) 50 mg PO BEDTIME MRX1 PRN PRN Reason: Insomnia Last Admin: 09/13/23 20:27 Dose: 50 mg Allergies Allergies Allergy/AdvReac Type Severity Reaction Status Date / Time amoxicillin [AMOXICILLIN] Allergy Mild VOMITING/ABD Verified 09/10/23 19:44 PAIN Assessment & Plan Assessment & Plan (1) Schizoaffective disorder: Status: Acute Code(s): F25.9 - Schizoaffective disorder, unspecified (2) Hypothyroidism: Status: Acute Code(s): E03.9 - Hypothyroidism, unspecified (3) Type 2 diabetes mellitus: Status: Acute Code(s): E11.9 - Type 2 diabetes mellitus without complications Plan Patient is a 58 year old male with hx of Schizoaffective d/o and hypothyroid disorder/thyroid coma, stroke and brain aneurysm, who was brought to [facility] on a Section 12 d/t disorganized behavior, concern for his memory impairment, medications noncompliance and poor ADLs. Plan: CV 15 minute safety checks Continue home medications: Haldol 10mg PO daily Synthroid 200mcg PO daily Obtain labs; A1C/POCs Obtain collateral from sister Obtain records from last hospitalization. MOCA Referral for DMH services if patient is agreeable. encourage medication compliance;consider VARGAS discharge planning 09/11: Elevated fasting blood sugar elevated hemoglobin A1c 9.2 med consult placed put in point of care needed will start metformin Would benefit from clarity over recent hospitalization what this were done details regarding treatment continue Haldol unclear if patient has Healthcare proxy his [place] was low slowed cognition with poor details in depth at times during blankly regarding making judgments Unclear if any of this relates to past coma or 2 hypothyroidism. He does seem more impaired than when last seen unclear when last imaging was. Continue Haldol sitter neuro indira involvement regarding diagnostic picture. Patient does remain paranoid blunted suspicious apathetic. He might benefit from longer-term placement if available and appropriate at a later time involved DMH involvement would be quite helpful 09/12: cont haldol get records ? hcp ? start antidep unclear hx 09/13: Keeping to self. More talkative today. Pt concerned he will be transferred to [facility]. Pt stated, The paper I signed yesterday. Are you going to send me back to the last hospital? That place was horrible . Pt was educated he signed a release of information with Dr. Gonzalez to obtain records from [facility]. Pt was given a copy of the release he signed. Despite this, pt continues to be anxious about being transferred. Pt denies SI/HI/VH/AH. 09/14: Keeping to self. active on unit. showered. Pt reports feeling alright today; pt reports he is worried about where I'm going to go . Pt continues concerned he will be transferred to [facility]. Pt denies SI/HI/VH/AH. 09/15:Pt reports feeling alright today; pt continues to report he is worried about where I'm going to go . Responding with brief responses. Guarded. Observed standing in one place for a long period of time. Appears confused. Pt denies SI/HI/VH/AH. T/W spoke to patient's sister, Ros, with patients verbal consent. Ros reports concerns regarding patients ability to make decisions regarding his mental and physical health. She plans on contacting legal advice on obtaining guardianship of patient. 09/16:Patient's presents similar to yesterday's presentation. Responding with brief responses. Guarded. Observed standing in one place for a long period of time, when asked what he is doing, pt stated, I don't know . Pt reports he plans on contacting his sister today and try to convince her for me to stay there . Pt denies SI/HI/VH/AH. Continue current tx plan. 09/17: brief responses. Guarded. 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 Pt denies SI/HI/VH/AH. T/W and Dr. Gonzalez spoke to patient's sister, Ros. Ros stated being [facility] HCP and plans on finding document. She plans on coming to the hospital on Saturday to be present for [facility] intake. 09/22/2023: No changes 09/23/2023 Patient flat apathetic difficult insight and judgment his sister is healthcare proxy if needed patient is accepting medical treatment Referral to [facility] 09/24/23 Considers starting Haldol Decanoate patient is agreeable superficially difficulty with exec fx was seen [facility] 09/25/23 Pt seen in f/u mood flat dysphoric difficulty engaging in conversation preoccupied with thought he wont be living with family thing slowed apathetic no clear response with namenda ? some improvement inc lamictal start low dose sertraline inc lamictal ck tsh 09/26/2023 Start Abilify as augmentation with Haldol see if can be more stimulating regarding depressed mood apathetic limited engagement sertraline 50 mg Lamictal 25 b.i.d. referral to [facility] which would have structure unclear if patient can engage with this he remains quite depressed has delusional beliefs regarding housing and that things have been done he has repeatedly tried to reach out to his sister denies active SI needs much help dressing talking with others encouragement to eat severe thought blocking Abilify might be more stimulating than Haldol which can be more dulling 09/27/23 Abilinathaniel started sertraline Lamictal encouraged step-down to [facility] encourage reality orientation denies active SI Reason for continued inpatient stay Substantial Risk for: harm to self and med/psych decompensation Time Spent With Patient Time: Total time managing care of this patient today ____ minutes.
[2023-09-27] MEDS: hydrOXYzine HCL 25 MG TABLET PO (16:37)
[2023-09-27 17:45] LABS: Glucose, Whole Blood 191 mg/dL (60-115)
[2023-09-27] MEDS: Insulin Lispro 100 UNIT/ML 3 ML VIAL SUBCUT ×2 (17:52→22:11)
[2023-09-27] MEDS: metFORMIN HCl ER 500 MG TAB.ER.24H 1000 MG PO (17:53)
[2023-09-27 20:00] VITALS: BP 116/67; PULSE 88; RESP 18; TEMP 36.6; O2SAT 97
[2023-09-27 20:40] LABS: Glucose, Whole Blood 175 mg/dL (60-115)
[2023-09-27] MEDS: Insulin Glargine,Hum.rec.anlog 100 UNIT/ML 10 ML VIAL 20 UNIT SUBCUT (22:12)
[2023-09-27] MEDS: HaloperidoL 5 MG TABLET 10 MG PO (22:14)
[2023-09-27] MEDS: lamoTRIgine 25 MG TABLET 50 MG PO (22:15)
[2023-09-28 08:00] VITALS: BP 101/65; PULSE 92; RESP 16; TEMP 36.8; O2SAT 96
[2023-09-28] MEDS: Levothyroxine Sodium 200 MCG TABLET PO (08:22)
[2023-09-28] MEDS: Memantine HCl 5 MG TABLET PO ×2 (08:22→22:31)
[2023-09-28] MEDS: Sertraline HCL 50 MG TABLET PO (08:22)
[2023-09-28] MEDS: ARIPiprazole 2 MG TABLET 4 MG PO (08:22)
[2023-09-28] MEDS: hydrOXYzine HCL 25 MG TABLET PO (08:31)
[2023-09-28 09:18] LABS: Glucose, Whole Blood 128 mg/dL (60-115)
--- NOTE | 2023-09-28 10:38 | HO.PSYCHPN ---
Subjective Subjective Date of Service: 09/28/23 Reason For Visit: paranoia cognitive impairment Subjective Notes: Conditional Voluntary Interim History: Patient was seen and discussed in rounds today. Records and plans were reviewed. Continues to endorse depression. No anxiety. Eating and sleeping adequately. He is medication compliant. Continues to be guarded. Some paranoia reported. Blood sugars have been within acceptable range. No SI. No changes were made today Review of Systems Review of Systems Yes all other systems are reviewed and are negative Mental Status Exam Mental Status Exam Narrative: In today's visit he is alert, oriented and pleasant. Normal speech. Moderate eye contact. Affect is subdued. No acute signs of psychosis. No active SI. Cognitively intact. Diagnostics Vital Signs (24Hr): Vital Signs - 24 hr 09/27/23 20:00 09/28/23 08:00 Temperature 98 F 98.3 F Pulse Rate 88 92 Respiratory Rate 18 16 Blood Pressure 116/67 101/65 Pulse Oximetry 97 96 Oxygen Delivery Method Room Air Room Air BMI result Body Mass Index 31.1 Labs 09/10/23 20:00 09/26/23 07:32 Labs: Laboratory Results - last 48 hr 09/26/23 09/26/23 09/27/23 12:43 17:46 09:26 POC Glucose 149 H 148 H 97 09/27/23 09/27/23 09/27/23 12:47 17:41 20:29 POC Glucose 133 H 191 H 175 H 09/28/23 08:33 POC Glucose 128 H Imaging Radiology Impressions: ITS Impressions Brain MRI 09/19/23 20:33 IMPRESSION: 1. No demonstrated acute intracranial abnormalities. 2. Chronic mild to moderate nonspecific white matter changes, most notably in the deep white matter of the right frontal lobe. Mild to moderate generalized cerebral volume loss. Medications Medications Current Medications Acetaminophen (Acetaminophen 325 Mg Tablet) 650 mg PO Q6H PRN PRN Reason: Headache/Pain Mild Scale (1-3) Last Admin: 09/20/23 15:15 Dose: 650 mg Al Hydroxide/Mg Hydroxide (Magnesium Hydrox/Alum Hydrox 30 Ml Oral.Susp) 30 ml PO Q6H PRN PRN Reason: Heartburn/Nausea Aripiprazole (Aripiprazole 2 Mg Tablet) 4 mg PO DAILY MANAS Last Admin: 09/28/23 08:22 Dose: 4 mg Benztropine Mesylate (Benztropine Mesylate 0.5 Mg Tablet) 0.5 mg PO TID PRN PRN Reason: Extrapyramidal Effects Glucose (Glucose Gel 15 Gm Gel..Gram.) 15 gm PO Q15M PRN; Protocol PRN Reason: per Hypoglycemia Standing Ord. Haloperidol (Haloperidol 5 Mg Tablet) 10 mg PO BEDTIME [facility] Last Admin: 09/27/23 22:14 Dose: 10 mg Hydroxyzine HCl (Hydroxyzine Hcl 25 Mg Tablet) 25 mg PO Q6H PRN PRN Reason: Anxiety Last Admin: 09/28/23 08:31 Dose: 25 mg Dextrose (D10) 250 mls @ 750 mls/hr IV Q15M PRN; Protocol PRN Reason: per Hypoglycemia Standing Ord. Insulin Glargine (Insulin Glargine,Hum.Rec.Anlog 100 Unit/Ml 10 Ml Vial) 20 unit SUBCUT BEDTIME [facility] Last Admin: 09/27/23 22:12 Dose: 20 unit Insulin Human Lispro (Insulin Lispro 100 Unit/Ml 3 Ml Vial) 0 unit SUBCUT QIDACHS [facility]; Protocol Last Admin: 09/28/23 08:34 Dose: Not Given Lamotrigine (Lamotrigine 25 Mg Tablet) 50 mg PO BEDTIME [facility] Last Admin: 09/27/23 22:15 Dose: 50 mg Levothyroxine Sodium (Levothyroxine Sodium 200 Mcg Tablet) 200 mcg PO DAILY [facility] Last Admin: 09/28/23 08:22 Dose: 200 mcg Magnesium Hydroxide (Milk Of Magnesia 30 Ml Oral.Susp) 30 ml PO DAILY PRN PRN Reason: Constipation Memantine (Memantine Hcl 5 Mg Tablet) 5 mg PO BID [facility] Last Admin: 09/28/23 08:22 Dose: 5 mg Metformin HCl (Metformin Hcl Er 500 Mg Tab.Er.24h) 1,000 mg PO DAILY@1700 [facility] Last Admin: 09/27/23 17:53 Dose: 1,000 mg Nicotine Polacrilex (Nicotine Polacrilex 2 Mg Gum) 4 mg BUCCAL Q2H PRN PRN Reason: Nicotine Cravings Sertraline HCl (Sertraline Hcl 50 Mg Tablet) 50 mg PO DAILY [facility] Last Admin: 09/28/23 08:22 Dose: 50 mg Trazodone HCl (Trazodone Hcl 50 Mg Tablet) 50 mg PO BEDTIME MRX1 PRN PRN Reason: Insomnia Last Admin: 09/13/23 20:27 Dose: 50 mg Allergies Allergies Allergy/AdvReac Type Severity Reaction Status Date / Time amoxicillin [AMOXICILLIN] Allergy Mild VOMITING/ABD Verified 09/10/23 19:44 PAIN Assessment & Plan Assessment & Plan (1) Schizoaffective disorder: Status: Acute Code(s): F25.9 - Schizoaffective disorder, unspecified (2) Hypothyroidism: Status: Acute Code(s): E03.9 - Hypothyroidism, unspecified (3) Type 2 diabetes mellitus: Status: Acute Code(s): E11.9 - Type 2 diabetes mellitus without complications Plan Patient is a 58 year old male with hx of Schizoaffective d/o and hypothyroid disorder/thyroid coma, stroke and brain aneurysm, who was brought to [facility] on a Section 12 d/t disorganized behavior, concern for his memory impairment, medications noncompliance and poor ADLs. Plan: CV 15 minute safety checks Continue home medications: Haldol 10mg PO daily Synthroid 200mcg PO daily Obtain labs; A1C/POCs Obtain collateral from sister Obtain records from last hospitalization. MOCA Referral for DMH services if patient is agreeable. encourage medication compliance;consider VARGAS discharge planning 09/11: Elevated fasting blood sugar elevated hemoglobin A1c 9.2 med consult placed put in point of care needed will start metformin Would benefit from clarity over recent hospitalization what this were done details regarding treatment continue Haldol unclear if patient has Healthcare proxy his Leslie was low slowed cognition with poor details in depth at times during blankly regarding making judgments Unclear if any of this relates to past coma or 2 hypothyroidism. He does seem more impaired than when last seen unclear when last imaging was. Continue Haldol sitter neuro indira involvement regarding diagnostic picture. Patient does remain paranoid blunted suspicious apathetic. He might benefit from longer-term placement if available and appropriate at a later time involved DMH involvement would be quite helpful 09/12: cont haldol get records ? hcp ? start antidep unclear hx 09/13: Keeping to self. More talkative today. Pt concerned he will be transferred to [facility]. Pt stated, The paper I signed yesterday. Are you going to send me back to the last hospital? That place was horrible . Pt was educated he signed a release of information with Dr. Gonzalez to obtain records from [facility]. Pt was given a copy of the release he signed. Despite this, pt continues to be anxious about being transferred. Pt denies SI/HI/VH/AH. 09/14: Keeping to self. active on unit. showered. Pt reports feeling alright today; pt reports he is worried about where I'm going to go . Pt continues concerned he will be transferred to [facility]. Pt denies SI/HI/VH/AH. 09/15:Pt reports feeling alright today; pt continues to report he is worried about where I'm going to go . Responding with brief responses. Guarded. Observed standing in one place for a long period of time. Appears confused. Pt denies SI/HI/VH/AH. T/W spoke to patient's sister, Ros, with patients verbal consent. Ros reports concerns regarding patients ability to make decisions regarding his mental and physical health. She plans on contacting legal advice on obtaining guardianship of patient. 09/16:Patient's presents similar to yesterday's presentation. Responding with brief responses. Guarded. Observed standing in one place for a long period of time, when asked what he is doing, pt stated, I don't know . Pt reports he plans on contacting his sister today and try to convince her for me to stay there . Pt denies SI/HI/VH/AH. Continue current tx plan. 09/17: brief responses. Guarded. 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 Pt denies SI/HI/VH/AH. T/W and Dr. Gonzalez spoke to patient's sister, Ros. Ros stated being [facility] HCP and plans on finding document. She plans on coming to the hospital on Saturday to be present for [facility] intake. 09/22/2023: No changes 09/23/2023 Patient flat apathetic difficult insight and judgment his sister is healthcare proxy if needed patient is accepting medical treatment Referral to [facility] 09/24/23 Considers starting Haldol Decanoate patient is agreeable superficially difficulty with exec fx was seen [facility] 09/25/23 Pt seen in f/u mood flat dysphoric difficulty engaging in conversation preoccupied with thought he wont be living with family thing slowed apathetic no clear response with [place] ? some improvement inc lamictal start low dose sertraline inc lamictal ck tsh 09/26/2023 Start Abilify as augmentation with Haldol see if can be more stimulating regarding depressed mood apathetic limited engagement sertraline 50 mg Lamictal 25 b.i.d. referral [facility] which would have structure unclear if patient can engage with this he remains quite depressed has delusional beliefs regarding housing and that things have been done he has repeatedly tried to reach out to his sister denies active SI needs much help dressing talking with others encouragement to eat severe thought blocking Abilify might be more stimulating than Haldol which can be more dulling 09/27/23 Abilify started sertraline Lamictal encouraged step-down to [facility]' encourage reality orientation denies active SI 09/27: Continue current regimen and plans Reason for continued inpatient stay Substantial Risk for: med/psych decompensation Time Spent With Patient Time: Total time managing care of this patient today ____ minutes.
[2023-09-28 12:57] LABS: Glucose, Whole Blood 226 mg/dL (60-115)
[2023-09-28] MEDS: Insulin Lispro 100 UNIT/ML 3 ML VIAL SUBCUT ×2 (13:37→22:28)
[2023-09-28 18:06] LABS: Glucose, Whole Blood 96 mg/dL (60-115)
[2023-09-28] MEDS: metFORMIN HCl ER 500 MG TAB.ER.24H 1000 MG PO (18:12)
[2023-09-28 20:00] VITALS: BP 116/71; PULSE 73; RESP 18; TEMP 36.7; O2SAT 96
[2023-09-28 21:38] LABS: Glucose, Whole Blood 279 mg/dL (60-115)
[2023-09-28] MEDS: Insulin Glargine,Hum.rec.anlog 100 UNIT/ML 10 ML VIAL 20 UNIT SUBCUT (22:28)
[2023-09-28] MEDS: lamoTRIgine 25 MG TABLET 50 MG PO (22:30)
[2023-09-28] MEDS: HaloperidoL 5 MG TABLET 10 MG PO (22:32)
[2023-09-29 08:00] VITALS: BP 115/71; PULSE 85; RESP 12; TEMP 36.7; O2SAT 97
[2023-09-29 08:45] LABS: Glucose, Whole Blood 109 mg/dL (60-115)
[2023-09-29] MEDS: ARIPiprazole 2 MG TABLET 4 MG PO (09:14)
[2023-09-29] MEDS: Sertraline HCL 50 MG TABLET PO (09:14)
[2023-09-29] MEDS: Memantine HCl 5 MG TABLET PO ×2 (09:14→20:15)
[2023-09-29] MEDS: Levothyroxine Sodium 200 MCG TABLET PO (09:14)
--- NOTE | 2023-09-29 10:43 | HO.PSYCHPN ---
Subjective Subjective Date of Service: 09/29/23 Reason For Visit: paranoia cognitive impairment Subjective Notes: Conditional Voluntary Interim History: Patient was seen and discussed in rounds today. Records and plans were reviewed. He continues to be mostly isolative with little interaction with others on less approached. Sleeps a lot. Still having depression and anxiety. Some thought blocking reported. Affect is flat. Eating and sleeping adequately. No changes were made today Review of Systems Review of Systems Yes all other systems are reviewed and are negative Mental Status Exam Mental Status Exam Narrative: In today's visit he is alert, oriented and pleasant. Normal speech. Moderate eye contact. Affect is subdued. No acute signs of psychosis. No active SI. Cognitively intact. Diagnostics Vital Signs (24Hr): Vital Signs - 24 hr 09/28/23 20:00 Temperature 98.1 F Pulse Rate 73 Respiratory Rate 18 Blood Pressure 116/71 Pulse Oximetry 96 Oxygen Delivery Method Room Air BMI result Body Mass Index 31.1 Labs 09/10/23 20:00 09/26/23 07:32 Labs: Laboratory Results - last 48 hr 09/27/23 09/27/23 09/27/23 12:47 17:41 20:29 POC Glucose 133 H 191 H 175 H 09/28/23 09/28/23 09/28/23 08:33 12:50 17:53 POC Glucose 128 H 226 H 96 09/28/23 09/29/23 21:34 08:37 POC Glucose 279 H 109 Imaging Radiology Impressions: ITS Impressions Brain MRI 09/19/23 20:33 IMPRESSION: 1. No demonstrated acute intracranial abnormalities. 2. Chronic mild to moderate nonspecific white matter changes, most notably in the deep white matter of the right frontal lobe. Mild to moderate generalized cerebral volume loss. Medications Medications Current Medications Acetaminophen (Acetaminophen 325 Mg Tablet) 650 mg PO Q6H PRN PRN Reason: Headache/Pain Mild Scale (1-3) Last Admin: 09/20/23 15:15 Dose: 650 mg Al Hydroxide/Mg Hydroxide (Magnesium Hydrox/Alum Hydrox 30 Ml Oral.Susp) 30 ml PO Q6H PRN PRN Reason: Heartburn/Nausea Aripiprazole (Aripiprazole 2 Mg Tablet) 4 mg PO DAILY MANAS Last Admin: 09/29/23 09:14 Dose: 4 mg Benztropine Mesylate (Benztropine Mesylate 0.5 Mg Tablet) 0.5 mg PO TID PRN PRN Reason: Extrapyramidal Effects Glucose (Glucose Gel 15 Gm Gel..Gram.) 15 gm PO Q15M PRN; Protocol PRN Reason: per Hypoglycemia Standing Ord. Haloperidol (Haloperidol 5 Mg Tablet) 10 mg PO BEDTIME [facility] Last Admin: 09/28/23 22:32 Dose: 10 mg Hydroxyzine HCl (Hydroxyzine Hcl 25 Mg Tablet) 25 mg PO Q6H PRN PRN Reason: Anxiety Last Admin: 09/28/23 08:31 Dose: 25 mg Dextrose (D10) 250 mls @ 750 mls/hr IV Q15M PRN; Protocol PRN Reason: per Hypoglycemia Standing Ord. Insulin Glargine (Insulin Glargine,Hum.Rec.Anlog 100 Unit/Ml 10 Ml Vial) 20 unit SUBCUT BEDTIME [facility] Last Admin: 09/28/23 22:28 Dose: 20 unit Insulin Human Lispro (Insulin Lispro 100 Unit/Ml 3 Ml Vial) 0 unit SUBCUT QIDACHS [facility]; Protocol Last Admin: 09/29/23 09:12 Dose: Not Given Lamotrigine (Lamotrigine 25 Mg Tablet) 50 mg PO BEDTIME [facility] Last Admin: 09/28/23 22:30 Dose: 50 mg Levothyroxine Sodium (Levothyroxine Sodium 200 Mcg Tablet) 200 mcg PO DAILY [facility] Last Admin: 09/29/23 09:14 Dose: 200 mcg Magnesium Hydroxide (Milk Of Magnesia 30 Ml Oral.Susp) 30 ml PO DAILY PRN PRN Reason: Constipation Memantine (Memantine Hcl 5 Mg Tablet) 5 mg PO BID [facility] Last Admin: 09/29/23 09:14 Dose: 5 mg Metformin HCl (Metformin Hcl Er 500 Mg Tab.Er.24h) 1,000 mg PO DAILY@1700 [facility] Last Admin: 09/28/23 18:12 Dose: 1,000 mg Nicotine Polacrilex (Nicotine Polacrilex 2 Mg Gum) 4 mg BUCCAL Q2H PRN PRN Reason: Nicotine Cravings Sertraline HCl (Sertraline Hcl 50 Mg Tablet) 50 mg PO DAILY [facility] Last Admin: 09/29/23 09:14 Dose: 50 mg Trazodone HCl (Trazodone Hcl 50 Mg Tablet) 50 mg PO BEDTIME MRX1 PRN PRN Reason: Insomnia Last Admin: 09/13/23 20:27 Dose: 50 mg Allergies Allergies Allergy/AdvReac Type Severity Reaction Status Date / Time amoxicillin [AMOXICILLIN] Allergy Mild VOMITING/ABD Verified 09/10/23 19:44 PAIN Assessment & Plan Assessment & Plan (1) Schizoaffective disorder: Status: Acute Code(s): F25.9 - Schizoaffective disorder, unspecified (2) Hypothyroidism: Status: Acute Code(s): E03.9 - Hypothyroidism, unspecified (3) Type 2 diabetes mellitus: Status: Acute Code(s): E11.9 - Type 2 diabetes mellitus without complications Plan Patient is a 58 year old male with hx of Schizoaffective d/o and hypothyroid disorder/thyroid coma, stroke and brain aneurysm, who was brought to [facility] on a Section 12 d/t disorganized behavior, concern for his memory impairment, medications noncompliance and poor ADLs. Plan: CV 15 minute safety checks Continue home medications: Haldol 10mg PO daily Synthroid 200mcg PO daily Obtain labs; A1C/POCs Obtain collateral from sister Obtain records from last hospitalization. MOCA Referral for DMH services if patient is agreeable. encourage medication compliance;consider VARGAS discharge planning 09/11: Elevated fasting blood sugar elevated hemoglobin A1c 9.2 med consult placed put in point of care needed will start metformin Would benefit from clarity over recent hospitalization what this were done details regarding treatment continue Haldol unclear if patient has Healthcare proxy his R[place] was low slowed cognition with poor details in depth at times during blankly regarding making judgments Unclear if any of this relates to past coma or 2 hypothyroidism. He does seem more impaired than when last seen unclear when last imaging was. Continue Haldol sitter neuro indira involvement regarding diagnostic picture. Patient does remain paranoid blunted suspicious apathetic. He might benefit from longer-term placement if available and appropriate at a later time involved DMH involvement would be quite helpful 09/12: cont haldol get records ? hcp ? start antidep unclear hx 09/13: Keeping to self. More talkative today. Pt concerned he will be transferred to [facility]. Pt stated, The paper I signed yesterday. Are you going to send me back to the last hospital? That place was horrible . Pt was educated he signed a release of information with Dr. Gonzalez to obtain records from [facility]. Pt was given a copy of the release he signed. Despite this, pt continues to be anxious about being transferred. Pt denies SI/HI/VH/AH. 09/14: Keeping to self. active on unit. showered. Pt reports feeling alright today; pt reports he is worried about where I'm going to go . Pt continues concerned he will be transferred to [facility]. Pt denies SI/HI/VH/AH. 09/15:Pt reports feeling alright today; pt continues to report he is worried about where I'm going to go . Responding with brief responses. Guarded. Observed standing in one place for a long period of time. Appears confused. Pt denies SI/HI/VH/AH. T/W spoke to patient's sister, Ros, with patients verbal consent. Ros reports concerns regarding patients ability to make decisions regarding his mental and physical health. She plans on contacting legal advice on obtaining guardianship of patient. 09/16:Patient's presents similar to yesterday's presentation. Responding with brief responses. Guarded. Observed standing in one place for a long period of time, when asked what he is doing, pt stated, I don't know . Pt reports he plans on contacting his sister today and try to convince her for me to stay there . Pt denies SI/HI/VH/AH. Continue current tx plan. 09/17: brief responses. Guarded. 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 Pt denies SI/HI/VH/AH. T/W and Dr. Gonzalez spoke to patient's sister, Ros. Ros stated being [facility] HCP and plans on finding document. She plans on coming to the hospital on Saturday to be present for [facility] intake. 09/22/2023: No changes 09/23/2023 Patient flat apathetic difficult insight and judgment his sister is healthcare proxy if needed patient is accepting medical treatment Referral to [facility] 09/24/23 Considers starting Haldol Decanoate patient is agreeable superficially difficulty with exec fx was seen [facility] 09/25/23 Pt seen in f/u mood flat dysphoric difficulty engaging in conversation preoccupied with thought he wont be living with family thing slowed apathetic no clear response with [place] ? some improvement inc lamictal start low dose sertraline inc lamictal ck tsh 09/26/2023 Start Abilify as augmentation with Haldol see if can be more stimulating regarding depressed mood apathetic limited engagement sertraline 50 mg Lamictal 25 b.i.d. referral to [facility] which would have structure unclear if patient can engage with this he remains quite depressed has delusional beliefs regarding housing and that things have been done he has repeatedly tried to reach out to his sister denies active SI needs much help dressing talking with others encouragement to eat severe thought blocking Abilify might be more stimulating than Haldol which can be more dulling 09/27/23 Abilifwaldemar started sertraline Lamictal encouraged step-down to [facility] encourage reality orientation denies active SI 09/27: Continue current regimen and plans 09/28: Continue current regimen and plans. Reason for continued inpatient stay Substantial Risk for: med/psych decompensation Time Spent With Patient Time: Total time managing care of this patient today ____ minutes.
[2023-09-29 12:44] LABS: Glucose, Whole Blood 88 mg/dL (60-115)
[2023-09-29 17:50] LABS: Glucose, Whole Blood 228 mg/dL (60-115)
[2023-09-29] MEDS: metFORMIN HCl ER 500 MG TAB.ER.24H 1000 MG PO (17:52)
[2023-09-29] MEDS: Insulin Lispro 100 UNIT/ML 3 ML VIAL SUBCUT ×2 (18:33→20:55)
[2023-09-29 19:10] VITALS: BP 141/72; PULSE 84; RESP 16; TEMP 36.8; O2SAT 97
[2023-09-29] MEDS: HaloperidoL 5 MG TABLET 10 MG PO (20:15)
[2023-09-29] MEDS: lamoTRIgine 25 MG TABLET 50 MG PO (20:15)
[2023-09-29 20:51] LABS: Glucose, Whole Blood 194 mg/dL (60-115)
[2023-09-29] MEDS: Insulin Glargine,Hum.rec.anlog 100 UNIT/ML 10 ML VIAL 20 UNIT SUBCUT (20:54)
[2023-09-30 07:43] VITALS: BP 116/70; PULSE 77; RESP 14; TEMP 36.8; O2SAT 95
[2023-09-30 08:28] LABS: Glucose, Whole Blood 125 mg/dL (60-115)
[2023-09-30] MEDS: Memantine HCl 5 MG TABLET PO ×2 (08:52→20:21)
[2023-09-30] MEDS: Levothyroxine Sodium 200 MCG TABLET PO (08:52)
[2023-09-30] MEDS: ARIPiprazole 2 MG TABLET 4 MG PO (08:52)
[2023-09-30] MEDS: Sertraline HCL 50 MG TABLET PO (08:52)
[2023-09-30 12:59] LABS: Glucose, Whole Blood 120 mg/dL (60-115)
[2023-09-30 17:52] LABS: Glucose, Whole Blood 122 mg/dL (60-115)
[2023-09-30] MEDS: metFORMIN HCl ER 500 MG TAB.ER.24H 1000 MG PO (17:53)
[2023-09-30 20:00] VITALS: BP 114/71; PULSE 81; RESP 16; TEMP 36.5; O2SAT 96
[2023-09-30] MEDS: HaloperidoL 5 MG TABLET 10 MG PO (20:20)
[2023-09-30] MEDS: lamoTRIgine 25 MG TABLET 50 MG PO (20:21)
--- NOTE | 2023-09-30 21:20 | P.PNPSI_ITS ---
Subjective Subjective Date of Service: 09/30/23 Reason For Visit: paranoia cognitive impairment Mental Status Exam Mental Status Exam Narrative: The patient speech is delayed thought is slowed staring at times patient alert mildly melancholic wishes to go home with his sister seems somewhat more accepting no gross hallucinations or delusional material noted at this time no active SI mood somewhat depressed constricted Diagnostics Vital Signs (24Hr): Vital Signs - 24 hr 09/30/23 07:43 Temperature 98.3 F Pulse Rate 77 Respiratory Rate 14 Blood Pressure 116/70 Pulse Oximetry 95 Oxygen Delivery Method Room Air BMI result Body Mass Index 31.1 Labs 09/10/23 20:00 09/26/23 07:32 Labs: Laboratory Results - last 48 hr 09/28/23 09/29/23 09/29/23 21:34 08:37 12:39 POC Glucose 279 H 109 88 09/29/23 09/29/23 09/30/23 17:45 20:48 08:23 POC Glucose 228 H 194 H 125 H 09/30/23 09/30/23 12:56 17:45 POC Glucose 120 H 122 H Imaging Radiology Impressions: ITS Impressions Brain MRI 09/19/23 20:33 IMPRESSION: 1. No demonstrated acute intracranial abnormalities. 2. Chronic mild to moderate nonspecific white matter changes, most notably in the deep white matter of the right frontal lobe. Mild to moderate generalized cerebral volume loss. Medications Medications Current Medications Acetaminophen (Acetaminophen 325 Mg Tablet) 650 mg PO Q6H PRN PRN Reason: Headache/Pain Mild Scale (1-3) Last Admin: 09/20/23 15:15 Dose: 650 mg Al Hydroxide/Mg Hydroxide (Magnesium Hydrox/Alum Hydrox 30 Ml Oral.Susp) 30 ml PO Q6H PRN PRN Reason: Heartburn/Nausea Aripiprazole (Aripiprazole 5 Mg Tablet) 5 mg PO DAILY MANAS Benztropine Mesylate (Benztropine Mesylate 0.5 Mg Tablet) 0.5 mg PO TID PRN PRN Reason: Extrapyramidal Effects Glucose (Glucose Gel 15 Gm Gel..Gram.) 15 gm PO Q15M PRN; Protocol PRN Reason: per Hypoglycemia Standing Ord. Haloperidol (Haloperidol 5 Mg Tablet) 10 mg PO BEDTIME MANAS Last Admin: 09/30/23 20:20 Dose: 10 mg Hydroxyzine HCl (Hydroxyzine Hcl 25 Mg Tablet) 25 mg PO Q6H PRN PRN Reason: Anxiety Last Admin: 09/28/23 08:31 Dose: 25 mg Dextrose (D10) 250 mls @ 750 mls/hr IV Q15M PRN; Protocol PRN Reason: per Hypoglycemia Standing Ord. Insulin Glargine (Insulin Glargine,Hum.Rec.Anlog 100 Unit/Ml 10 Ml Vial) 20 unit SUBCUT BEDTIME [facility] Last Admin: 09/29/23 20:54 Dose: 20 unit Insulin Human Lispro (Insulin Lispro 100 Unit/Ml 3 Ml Vial) 0 unit SUBCUT QIDACHS [facility]; Protocol Last Admin: 09/30/23 17:55 Dose: Not Given Lamotrigine (Lamotrigine 25 Mg Tablet) 50 mg PO BEDTIME [facility] Last Admin: 09/30/23 20:21 Dose: 50 mg Levothyroxine Sodium (Levothyroxine Sodium 200 Mcg Tablet) 200 mcg PO DAILY [facility] Last Admin: 09/30/23 08:52 Dose: 200 mcg Magnesium Hydroxide (Milk Of Magnesia 30 Ml Oral.Susp) 30 ml PO DAILY PRN PRN Reason: Constipation Memantine (Memantine Hcl 5 Mg Tablet) 5 mg PO BID [facility] Last Admin: 09/30/23 20:21 Dose: 5 mg Metformin HCl (Metformin Hcl Er 500 Mg Tab.Er.24h) 1,000 mg PO DAILY@1700 [facility] Last Admin: 09/30/23 17:53 Dose: 1,000 mg Nicotine Polacrilex (Nicotine Polacrilex 2 Mg Gum) 4 mg BUCCAL Q2H PRN PRN Reason: Nicotine Cravings Sertraline HCl (Sertraline Hcl 50 Mg Tablet) 50 mg PO DAILY [facility] Last Admin: 09/30/23 08:52 Dose: 50 mg Trazodone HCl (Trazodone Hcl 50 Mg Tablet) 50 mg PO BEDTIME MRX1 PRN PRN Reason: Insomnia Last Admin: 09/13/23 20:27 Dose: 50 mg Allergies Allergies Allergy/AdvReac Type Severity Reaction Status Date / Time amoxicillin [AMOXICILLIN] Allergy Mild VOMITING/ABD Verified 09/10/23 19:44 PAIN Assessment & Plan Assessment & Plan (1) Schizoaffective disorder: Status: Acute Code(s): F25.9 - Schizoaffective disorder, unspecified (2) Hypothyroidism: Status: Acute Code(s): E03.9 - Hypothyroidism, unspecified (3) Type 2 diabetes mellitus: Status: Acute Code(s): E11.9 - Type 2 diabetes mellitus without complications Plan Patient is a 58 year old male with hx of Schizoaffective d/o and hypothyroid disorder/thyroid coma, stroke and brain aneurysm, who was brought to [facility] on a Section 12 d/t disorganized behavior, concern for his memory impairment, medications noncompliance and poor ADLs. Plan: CV 15 minute safety checks Continue home medications: Haldol 10mg PO daily Synthroid 200mcg PO daily Obtain labs; A1C/POCs Obtain collateral from sister Obtain records from last hospitalization. MOCA Referral for DMH services if patient is agreeable. encourage medication compliance;consider VARGAS discharge planning 09/11: Elevated fasting blood sugar elevated hemoglobin A1c 9.2 med consult placed put in point of care needed will start metformin Would benefit from clarity over recent hospitalization what this were done details regarding treatment continue Haldol unclear if patient has Healthcare proxy his [place] was low slowed cognition with poor details in depth at times during blankly regarding making judgments Unclear if any of this relates to past coma or 2 hypothyroidism. He does seem more impaired than when last seen unclear when last imaging was. Continue Haldol sitter neuro indira involvement regarding diagnostic picture. Patient does remain paranoid blunted suspicious apathetic. He might benefit from longer- term placement if available and appropriate at a later time involved DMH involvement would be quite helpful 09/12: cont haldol get records ? hcp ? start antidep unclear hx 09/13: Keeping to self. More talkative today. Pt concerned he will be transferred to [facility]. Pt stated, The paper I signed yesterday. Are you going to send me back to the last hospital? That place was horrible . Pt was educated he signed a release of information with Dr. Gonzalez to obtain records from [facility]. Pt was given a copy of the release he signed. Despite this, pt continues to be anxious about being transferred. Pt denies SI/HI/VH/AH. 09/14: Keeping to self. active on unit. showered. Pt reports feeling alright today; pt reports he is worried about where I'm going to go . Pt continues concerned he will be transferred to [facility]. Pt denies SI/HI/VH/AH. 09/15:Pt reports feeling alright today; pt continues to report he is worried about where I'm going to go . Responding with brief responses. Guarded. Observed standing in one place for a long period of time. Appears confused. Pt denies SI/HI/VH/AH. T/W spoke to patient's sister, Ros, with patients verbal consent. Ros reports concerns regarding patients ability to make decisions regarding his mental and physical health. She plans on contacting legal advice on obtaining guardianship of patient. 09/16:Patient's presents similar to yesterday's presentation. Responding with brief responses. Guarded. Observed standing in one place for a long period of time, when asked what he is doing, pt stated, I don't know . Pt reports he plans on contacting his sister today and try to convince her for me to stay there . Pt denies SI/HI/VH/AH. Continue current tx plan. 09/17: brief responses. Guarded. 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 Pt denies SI/HI/VH/AH. T/W and Dr. Gonzalez spoke to patient's sister, Ros. Ros stated being [facility] and plans on finding document. She plans on coming to the hospital on Saturday to be present for [facility] intake. 09/22/2023: No changes 09/23/2023 Patient flat apathetic difficult insight and judgment his sister is healthcare proxy if needed patient is accepting medical treatment Referral to [facility] 09/24/23 Considers starting Haldol Decanoate patient is agreeable superficially difficulty with exec fx was seen [facility] 09/25/23 Pt seen in f/u mood flat dysphoric difficulty engaging in conversation preoccupied with thought he wont be living with family thing slowed apathetic no clear response with namenda ? some improvement inc lamictal start low dose sertraline inc lamictal ck tsh 09/26/2023 Start Abilify as augmentation with Haldol see if can be more stimulating regarding depressed mood apathetic limited engagement sertraline 50 mg Lamictal 25 b.i.d. referral to [facility] which would have structure unclear if patient can engage with this he remains quite depressed has delusional beliefs regarding housing and that things have been done he has repeatedly tried to reach out to his sister denies active SI needs much help dressing talking with others encouragement to eat severe thought blocking Abilify might be more stimulating than Haldol which can be more dulling 09/27/23 Abiadiel started sertraline Lamictal encouraged step-down to [place] encourage reality orientation denies active SI 09/27: Continue current regimen and plans 09/28: Continue current regimen and plans. 09/30/2023 Referral to [facility]' increase Abilify to 5 mg daily eventually try and taper Haldol sertraline 50 mg daily Reason for continued inpatient stay Substantial Risk for: inability to function, rapid decompensation and med/psych decompensation Time Spent With Patient Time: Total time managing care of this patient today ____ minutes.
[2023-09-30] MEDS: Insulin Glargine,Hum.rec.anlog 100 UNIT/ML 10 ML VIAL 20 UNIT SUBCUT (21:34)
[2023-09-30 21:39] LABS: Glucose, Whole Blood 131 mg/dL (60-115)
[2023-10-01 07:20] VITALS: BP 107/58; PULSE 82; RESP 14; TEMP 36.8; O2SAT 95
[2023-10-01 08:00] VITALS: BP 107/58; PULSE 82; RESP 16; TEMP 36.8; O2SAT 96
[2023-10-01 08:25] LABS: Glucose, Whole Blood 114 mg/dL (60-115)
[2023-10-01] MEDS: Sertraline HCL 50 MG TABLET PO (08:34)
[2023-10-01] MEDS: Levothyroxine Sodium 200 MCG TABLET PO (08:34)
[2023-10-01] MEDS: ARIPiprazole 5 MG TABLET PO (08:34)
[2023-10-01] MEDS: Memantine HCl 5 MG TABLET PO ×2 (08:34→21:14)
[2023-10-01] MEDS: ARIPiprazole 2 MG TABLET PO (11:32)
[2023-10-01 12:33] LABS: Glucose, Whole Blood 153 mg/dL (60-115)
[2023-10-01] MEDS: Insulin Lispro 100 UNIT/ML 3 ML VIAL SUBCUT ×3 (12:40→21:16)
[2023-10-01 17:58] LABS: Glucose, Whole Blood 190 mg/dL (60-115)
[2023-10-01] MEDS: metFORMIN HCl ER 500 MG TAB.ER.24H 1000 MG PO (18:09)
[2023-10-01 20:00] VITALS: BP 105/58; PULSE 78; RESP 18; TEMP 36.6; O2SAT 97
[2023-10-01 20:32] LABS: Glucose, Whole Blood 204 mg/dL (60-115)
[2023-10-01] MEDS: ARIPiprazole 2 MG TABLET 4 MG PO (21:13)
[2023-10-01] MEDS: HaloperidoL 5 MG TABLET PO (21:13)
[2023-10-01] MEDS: lamoTRIgine 25 MG TABLET 50 MG PO (21:13)
[2023-10-01] MEDS: Insulin Glargine,Hum.rec.anlog 100 UNIT/ML 10 ML VIAL 20 UNIT SUBCUT (21:15)
--- NOTE | 2023-10-01 23:09 | P.PNPSI_ITS ---
Subjective Subjective Date of Service: 10/01/23 Reason For Visit: paranoia cognitive impairment Interim History: Patient casually dressed flat dysphoric no SI or HI. Minimal engagement with others often can tend to stare this seems to be somewhat improving no gross paranoia Diagnostics Vital Signs (24Hr): Vital Signs - 24 hr 10/01/23 07:20 10/01/23 08:00 10/01/23 20:00 Temperature 98.2 F 98.2 F 97.8 F Pulse Rate 82 82 78 Respiratory Rate 14 16 18 Blood Pressure 107/58 L 107/58 L 105/58 L Pulse Oximetry 95 96 97 Oxygen Delivery Method Room Air Room Air Room Air BMI result Body Mass Index 31.1 Labs 09/10/23 20:00 09/26/23 07:32 Labs: Laboratory Results - last 48 hr 09/30/23 09/30/23 09/30/23 08:23 12:56 17:45 POC Glucose 125 H 120 H 122 H 09/30/23 10/01/23 10/01/23 21:33 08:21 12:27 POC Glucose 131 H 114 153 H 10/01/23 10/01/23 17:53 20:26 POC Glucose 190 H 204 H Imaging Radiology Impressions: ITS Impressions Brain MRI 09/19/23 20:33 IMPRESSION: 1. No demonstrated acute intracranial abnormalities. 2. Chronic mild to moderate nonspecific white matter changes, most notably in the deep white matter of the right frontal lobe. Mild to moderate generalized cerebral volume loss. Medications Medications Current Medications Acetaminophen (Acetaminophen 325 Mg Tablet) 650 mg PO Q6H PRN PRN Reason: Headache/Pain Mild Scale (1-3) Last Admin: 09/20/23 15:15 Dose: 650 mg Al Hydroxide/Mg Hydroxide (Magnesium Hydrox/Alum Hydrox 30 Ml Oral.Susp) 30 ml PO Q6H PRN PRN Reason: Heartburn/Nausea Aripiprazole (Aripiprazole 10 Mg Tablet) 10 mg PO DAILY MANAS Aripiprazole (Aripiprazole 2 Mg Tablet) 4 mg PO BEDTIME MANAS Last Admin: 10/01/23 21:13 Dose: 4 mg Benztropine Mesylate (Benztropine Mesylate 0.5 Mg Tablet) 0.5 mg PO TID PRN PRN Reason: Extrapyramidal Effects Glucose (Glucose Gel 15 Gm Gel..Gram.) 15 gm PO Q15M PRN; Protocol PRN Reason: per Hypoglycemia Standing Ord. Haloperidol (Haloperidol 5 Mg Tablet) 5 mg PO BEDTIME [facility] Last Admin: 10/01/23 21:13 Dose: 5 mg Hydroxyzine HCl (Hydroxyzine Hcl 25 Mg Tablet) 25 mg PO Q6H PRN PRN Reason: Anxiety Last Admin: 09/28/23 08:31 Dose: 25 mg Dextrose (D10) 250 mls @ 750 mls/hr IV Q15M PRN; Protocol PRN Reason: per Hypoglycemia Standing Ord. Insulin Glargine (Insulin Glargine,Hum.Rec.Anlog 100 Unit/Ml 10 Ml Vial) 20 unit SUBCUT BEDTIME [facility] Last Admin: 10/01/23 21:15 Dose: 20 unit Insulin Human Lispro (Insulin Lispro 100 Unit/Ml 3 Ml Vial) 0 unit SUBCUT QIDACHS [facility]; Protocol Last Admin: 10/01/23 21:16 Dose: 4 unit Lamotrigine (Lamotrigine 25 Mg Tablet) 50 mg PO BEDTIME [facility] Last Admin: 10/01/23 21:13 Dose: 50 mg Levothyroxine Sodium (Levothyroxine Sodium 200 Mcg Tablet) 200 mcg PO DAILY [facility] Last Admin: 10/01/23 08:34 Dose: 200 mcg Magnesium Hydroxide (Milk Of Magnesia 30 Ml Oral.Susp) 30 ml PO DAILY PRN PRN Reason: Constipation Memantine (Memantine Hcl 5 Mg Tablet) 5 mg PO BID [facility] Last Admin: 10/01/23 21:14 Dose: 5 mg Metformin HCl (Metformin Hcl Er 500 Mg Tab.Er.24h) 1,000 mg PO DAILY@1700 [facility] Last Admin: 10/01/23 18:09 Dose: 1,000 mg Nicotine Polacrilex (Nicotine Polacrilex 2 Mg Gum) 4 mg BUCCAL Q2H PRN PRN Reason: Nicotine Cravings Sertraline HCl (Sertraline Hcl 50 Mg Tablet) 50 mg PO DAILY [facility] Last Admin: 10/01/23 08:34 Dose: 50 mg Trazodone HCl (Trazodone Hcl 50 Mg Tablet) 50 mg PO BEDTIME MRX1 PRN PRN Reason: Insomnia Last Admin: 09/13/23 20:27 Dose: 50 mg Allergies Allergies Allergy/AdvReac Type Severity Reaction Status Date / Time amoxicillin [AMOXICILLIN] Allergy Mild VOMITING/ABD Verified 09/10/23 19:44 PAIN Assessment & Plan Assessment & Plan (1) Schizoaffective disorder: Status: Acute Code(s): F25.9 - Schizoaffective disorder, unspecified (2) Hypothyroidism: Status: Acute Code(s): E03.9 - Hypothyroidism, unspecified (3) Type 2 diabetes mellitus: Status: Acute Code(s): E11.9 - Type 2 diabetes mellitus without complications Plan Patient is a 58 year old male with hx of Schizoaffective d/o and hypothyroid disorder/thyroid coma, stroke and brain aneurysm, who was brought to [facility] ER on a Section 12 d/t disorganized behavior, concern for his memory impairment, medications noncompliance and poor ADLs. Plan: CV 15 minute safety checks Continue home medications: Haldol 10mg PO daily Synthroid 200mcg PO daily Obtain labs; A1C/POCs Obtain collateral from sister Obtain records from last hospitalization. MOCA Referral for DMH services if patient is agreeable. encourage medication compliance;consider VARGAS discharge planning 09/11: Elevated fasting blood sugar elevated hemoglobin A1c 9.2 med consult placed put in point of care needed will start metformin Would benefit from clarity over recent hospitalization what this were done details regarding treatment continue Haldol unclear if patient has Healthcare proxy his [place] was low slowed cognition with poor details in depth at times during blankly regarding making judgments Unclear if any of this relates to past coma or 2 hypothyroidism. He does seem more impaired than when last seen unclear when last imaging was. Continue Haldol sitter neuro indira involvement regarding diagnostic picture. Patient does remain paranoid blunted suspicious apathetic. He might benefit from longer- term placement if available and appropriate at a later time involved DMH involvement would be quite helpful 09/12: cont haldol get records ? hcp ? start antidep unclear hx 09/13: Keeping to self. More talkative today. Pt concerned he will be transferred to [facility]. Pt stated, The paper I signed yesterday. Are you going to send me back to the last hospital? That place was horrible . Pt was educated he signed a release of information with Dr. Gonzalez to obtain records from [facility]. Pt was given a copy of the release he signed. Despite this, pt continues to be anxious about being transferred. Pt denies SI/HI/VH/AH. 09/14: Keeping to self. active on unit. showered. Pt reports feeling alright today; pt reports he is worried about where I'm going to go . Pt continues concerned he will be transferred to [facility]. Pt denies SI/HI/VH/AH. 09/15:Pt reports feeling alright today; pt continues to report he is worried about where I'm going to go . Responding with brief responses. Guarded. Observed standing in one place for a long period of time. Appears confused. Pt denies SI/HI/VH/AH. T/W spoke to patient's sister, Ros, with patients verbal consent. Ros reports concerns regarding patients ability to make decisions regarding his mental and physical health. She plans on contacting legal advice on obtaining guardianship of patient. 09/16:Patient's presents similar to yesterday's presentation. Responding with brief responses. Guarded. Observed standing in one place for a long period of time, when asked what he is doing, pt stated, I don't know . Pt reports he plans on contacting his sister today and try to convince her for me to stay there . Pt denies SI/HI/VH/AH. Continue current tx plan. 09/17: brief responses. Guarded. 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 Pt denies SI/HI/VH/AH. T/W and Dr. Gonzalez spoke to patient's sister, Ros. Ros stated being [facility] and plans on finding document. She plans on coming to the hospital on Saturday to be present for [facility] intake. 09/22/2023: No changes 09/23/2023 Patient flat apathetic difficult insight and judgment his sister is healthcare proxy if needed patient is accepting medical treatment Referral to [facility] 09/24/23 Considers starting Haldol Decanoate patient is agreeable superficially difficulty with exec fx was seen [facility] 09/25/23 Pt seen in f/u mood flat dysphoric difficulty engaging in conversation preoccupied with thought he wont be living with family thing slowed apathetic no clear response with [place] ? some improvement inc lamictal start low dose sertraline inc lamictal ck tsh 09/26/2023 Start Abilify as augmentation with Haldol see if can be more stimulating regarding depressed mood apathetic limited engagement sertraline 50 mg Lamictal 25 b.i.d. referral to [facility] which would have structure unclear if patient can engage with this he remains quite depressed has delusional beliefs regarding housing and that things have been done he has repeatedly tried to reach out to his sister denies active SI needs much help dressing talking with others encouragement to eat severe thought blocking Abilify might be more stimulating than Haldol which can be more dulling 09/27/23 Abilify started sertraline Lamictal encouraged step-down to [facility] encourage reality orientation denies active SI 09/27: Continue current regimen and plans 09/28: Continue current regimen and plans. 09/30/2023 Referral to [facility] increase Abilify to 5 mg daily eventually try and taper Haldol sertraline 50 mg daily 10/01/2023 Increase Abilify to 10 mg lower Haldol to 7 mg continue sertraline and Lamictal Reason for continued inpatient stay Substantial Risk for: inability to function and rapid decompensation Time Spent With Patient Time: Total time managing care of this patient today ____ minutes.
[2023-10-02 07:35] VITALS: BP 121/73; PULSE 86; RESP 18; TEMP 36.6; O2SAT 95
[2023-10-02] MEDS: Sertraline HCL 50 MG TABLET PO (08:13)
[2023-10-02] MEDS: ARIPiprazole 10 MG TABLET PO (08:14)
[2023-10-02] MEDS: Memantine HCl 5 MG TABLET PO ×2 (08:14→21:12)
[2023-10-02] MEDS: Levothyroxine Sodium 200 MCG TABLET PO (08:14)
[2023-10-02 08:37] LABS: Glucose, Whole Blood 135 mg/dL (60-115)
--- NOTE | 2023-10-02 09:43 | P.PNPSI_ITS ---
Subjective Subjective Date of Service: 10/02/23 Reason For Visit: paranoia cognitive impairment Subjective Notes: Conditional Voluntary Healthcare Proxy: Yes (no invoked to this point) Interim History: Patient is somewhat isolated and depressed. He has been rejected by a rest homesetting was too paranoid withdrawn Trying to taper off of Haldol to see if the patient can be more engaged less dulled and apathetic. He has started on Abilify and sertraline Medication Compliance: Yes Mental Status Exam Mental Status Exam Narrative: The patient is dysphoric sad looking blunted poverty of content limited engagement slowed mentation. Decrease in paranoid concerns vague auditory hallucinations that he can not elucidate. At times some level of suspiciousness denies SI HI actively difficulty with decision-making impaired insight judgment Diagnostics Vital Signs (24Hr): Vital Signs - 24 hr 10/01/23 20:00 10/02/23 07:35 Temperature 97.8 F 97.8 F Pulse Rate 78 86 Respiratory Rate 18 18 Blood Pressure 105/58 L 121/73 Pulse Oximetry 97 95 Oxygen Delivery Method Room Air Room Air BMI result Body Mass Index 31.1 Labs 09/10/23 20:00 09/26/23 07:32 Labs: Laboratory Results - last 48 hr 09/30/23 09/30/23 09/30/23 12:56 17:45 21:33 POC Glucose 120 H 122 H 131 H 10/01/23 10/01/23 10/01/23 08:21 12:27 17:53 POC Glucose 114 153 H 190 H 10/01/23 10/02/23 20:26 08:32 POC Glucose 204 H 135 H Imaging Radiology Impressions: ITS Impressions Brain MRI 09/19/23 20:33 IMPRESSION: 1. No demonstrated acute intracranial abnormalities. 2. Chronic mild to moderate nonspecific white matter changes, most notably in the deep white matter of the right frontal lobe. Mild to moderate generalized cerebral volume loss. Medications Medications Current Medications Acetaminophen (Acetaminophen 325 Mg Tablet) 650 mg PO Q6H PRN PRN Reason: Headache/Pain Mild Scale (1-3) Last Admin: 09/20/23 15:15 Dose: 650 mg Al Hydroxide/Mg Hydroxide (Magnesium Hydrox/Alum Hydrox 30 Ml Oral.Susp) 30 ml PO Q6H PRN PRN Reason: Heartburn/Nausea Aripiprazole (Aripiprazole 10 Mg Tablet) 10 mg PO DAILY MANAS Last Admin: 10/02/23 08:14 Dose: 10 mg Aripiprazole (Aripiprazole 2 Mg Tablet) 4 mg PO BEDTIME [facility] Last Admin: 10/01/23 21:13 Dose: 4 mg Benztropine Mesylate (Benztropine Mesylate 0.5 Mg Tablet) 0.5 mg PO TID PRN PRN Reason: Extrapyramidal Effects Glucose (Glucose Gel 15 Gm Gel..Gram.) 15 gm PO Q15M PRN; Protocol PRN Reason: per Hypoglycemia Standing Ord. Haloperidol (Haloperidol 5 Mg Tablet) 5 mg PO BEDTIME [facility] Last Admin: 10/01/23 21:13 Dose: 5 mg Hydroxyzine HCl (Hydroxyzine Hcl 25 Mg Tablet) 25 mg PO Q6H PRN PRN Reason: Anxiety Last Admin: 09/28/23 08:31 Dose: 25 mg Dextrose (D10) 250 mls @ 750 mls/hr IV Q15M PRN; Protocol PRN Reason: per Hypoglycemia Standing Ord. Insulin Glargine (Insulin Glargine,Hum.Rec.Anlog 100 Unit/Ml 10 Ml Vial) 20 unit SUBCUT BEDTIME [facility] Last Admin: 10/01/23 21:15 Dose: 20 unit Insulin Human Lispro (Insulin Lispro 100 Unit/Ml 3 Ml Vial) 0 unit SUBCUT QIDACHS [facility]; Protocol Last Admin: 10/02/23 08:43 Dose: Not Given Lamotrigine (Lamotrigine 25 Mg Tablet) 50 mg PO BEDTIME [facility] Last Admin: 10/01/23 21:13 Dose: 50 mg Levothyroxine Sodium (Levothyroxine Sodium 200 Mcg Tablet) 200 mcg PO DAILY [facility] Last Admin: 10/02/23 08:14 Dose: 200 mcg Magnesium Hydroxide (Milk Of Magnesia 30 Ml Oral.Susp) 30 ml PO DAILY PRN PRN Reason: Constipation Memantine (Memantine Hcl 5 Mg Tablet) 5 mg PO BID [facility] Last Admin: 10/02/23 08:14 Dose: 5 mg Metformin HCl (Metformin Hcl Er 500 Mg Tab.Er.24h) 1,000 mg PO DAILY@1700 [facility] Last Admin: 10/01/23 18:09 Dose: 1,000 mg Nicotine Polacrilex (Nicotine Polacrilex 2 Mg Gum) 4 mg BUCCAL Q2H PRN PRN Reason: Nicotine Cravings Sertraline HCl (Sertraline Hcl 50 Mg Tablet) 50 mg PO DAILY MANAS Last Admin: 10/02/23 08:13 Dose: 50 mg Trazodone HCl (Trazodone Hcl 50 Mg Tablet) 50 mg PO BEDTIME MRX1 PRN PRN Reason: Insomnia Last Admin: 09/13/23 20:27 Dose: 50 mg Allergies Allergies Allergy/AdvReac Type Severity Reaction Status Date / Time amoxicillin [AMOXICILLIN] Allergy Mild VOMITING/ABD Verified 09/10/23 19:44 PAIN Assessment & Plan Assessment & Plan (1) Schizoaffective disorder: Status: Acute Code(s): F25.9 - Schizoaffective disorder, unspecified (2) Hypothyroidism: Status: Acute Code(s): E03.9 - Hypothyroidism, unspecified (3) Type 2 diabetes mellitus: Status: Acute Code(s): E11.9 - Type 2 diabetes mellitus without complications Plan Patient is a 58 year old male with hx of Schizoaffective d/o and hypothyroid disorder/thyroid coma, stroke and brain aneurysm, who was brought to [facility] ER on a Section 12 d/t disorganized behavior, concern for his memory impairment, medications noncompliance and poor ADLs. Plan: CV 15 minute safety checks Continue home medications: Haldol 10mg PO daily Synthroid 200mcg PO daily Obtain labs; A1C/POCs Obtain collateral from sister Obtain records from last hospitalization. MOCA Referral for DMH services if patient is agreeable. encourage medication compliance;consider VARGAS discharge planning 09/11: Elevated fasting blood sugar elevated hemoglobin A1c 9.2 med consult placed put in point of care needed will start metformin Would benefit from clarity over recent hospitalization what this were done details regarding treatment continue Haldol unclear if patient has Healthcare proxy his [place] was low slowed cognition with poor details in depth at times during blankly regarding making judgments Unclear if any of this relates to past coma or 2 hypothyroidism. He does seem more impaired than when last seen unclear when last imaging was. Continue Haldol sitter neuro indira involvement regarding diagnostic picture. Patient does remain paranoid blunted suspicious apathetic. He might benefit from longer- term placement if available and appropriate at a later time involved DMH involvement would be quite helpful 09/12: cont haldol get records ? hcp ? start antidep unclear hx 09/13: Keeping to self. More talkative today. Pt concerned he will be transferred to [facility]. Pt stated, The paper I signed yesterday. Are you going to send me back to the last hospital? That place was horrible . Pt was educated he signed a release of information with Dr. Gonzalez to obtain records from [facility]. Pt was given a copy of the release he signed. Despite this, pt continues to be anxious about being transferred. Pt denies SI/HI/VH/AH. 09/14: Keeping to self. active on unit. showered. Pt reports feeling alright today; pt reports he is worried about where I'm going to go . Pt continues concerned he will be transferred to [facility]. Pt denies SI/HI/VH/AH. 09/15:Pt reports feeling alright today; pt continues to report he is worried about where I'm going to go . Responding with brief responses. Guarded. Observed standing in one place for a long period of time. Appears confused. Pt denies SI/HI/VH/AH. T/W spoke to patient's sister, Ros, with patients verbal consent. Ros reports concerns regarding patients ability to make decisions regarding his mental and physical health. She plans on contacting legal advice on obtaining guardianship of patient. 09/16:Patient's presents similar to yesterday's presentation. Responding with brief responses. Guarded. Observed standing in one place for a long period of time, when asked what he is doing, pt stated, I don't know . Pt reports he plans on contacting his sister today and try to convince her for me to stay there . Pt denies SI/HI/VH/AH. Continue current tx plan. 09/17: brief responses. Guarded. 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 Pt denies SI/HI/VH/AH. T/W and Dr. Gonzalez spoke to patient's sister, Ros. Ros stated being [facility] and plans on finding document. She plans on coming to the hospital on Saturday to be present for [facility] intake. 09/22/2023: No changes 09/23/2023 Patient flat apathetic difficult insight and judgment his sister is healthcare proxy if needed patient is accepting medical treatment Referral to [facility] 09/24/23 Considers starting Haldol Decanoate patient is agreeable superficially difficulty with exec fx was seen [facility] 09/25/23 Pt seen in f/u mood flat dysphoric difficulty engaging in conversation preoccupied with thought he wont be living with family thing slowed apathetic no clear response with namenda ? some improvement inc lamictal start low dose sertraline inc lamictal ck tsh 09/26/2023 Start Abilify as augmentation with Haldol see if can be more stimulating regarding depressed mood apathetic limited engagement sertraline 50 mg Lamictal 25 b.i.d. referral to [facility] which would have structure unclear if patient can engage with this he remains quite depressed has delusional beliefs regarding housing and that things have been done he has repeatedly tried to reach out to his sister denies active SI needs much help dressing talking with others encouragement to eat severe thought blocking Abilify might be more stimulating than Haldol which can be more dulling 09/27/23 Abilify started sertraline Lamictal encouraged step-down to [facility] encourage reality orientation denies active SI 09/27: Continue current regimen and plans 09/28: Continue current regimen and plans. 09/30/2023 Referral to [facility] increase Abilify to 5 mg daily eventually try and taper Haldol sertraline 50 mg daily 10/01/2023 Increase Abilify to 10 mg lower Haldol to 7 mg continue sertraline and Lamictal 10/02/2023 Abilify increased to 10 mg continue to taper Haldol sertraline 100 mg Lamictal increased to 75 mg patient apathetic withdrawn difficulty with placement some paranoia continues difficulty with decision making at times. Not physically aggressive internally preoccupied seems somewhat improved with Abilify sertraline Continue discharge planning Reason for continued inpatient stay Substantial Risk for: inability to function, rapid decompensation and med/psych decompensation Time Spent With Patient Time: Total time managing care of this patient today ____ minutes.
[2023-10-02 12:42] LABS: Glucose, Whole Blood 171 mg/dL (60-115)
[2023-10-02] MEDS: Insulin Lispro 100 UNIT/ML 3 ML VIAL SUBCUT ×2 (12:48→18:01)
[2023-10-02 17:46] LABS: Glucose, Whole Blood 162 mg/dL (60-115)
[2023-10-02] MEDS: metFORMIN HCl ER 500 MG TAB.ER.24H 1000 MG PO (18:02)
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
[2023-10-02 20:00] VITALS: BP 121/77; PULSE 85; RESP 16; TEMP 36.8; O2SAT 96
[2023-10-02 21:02] LABS: Glucose, Whole Blood 150 mg/dL (60-115)
[2023-10-02] MEDS: lamoTRIgine 25 MG TABLET 50 MG PO (21:11)
[2023-10-02] MEDS: HaloperidoL 5 MG TABLET PO (21:12)
[2023-10-02] MEDS: Insulin Glargine,Hum.rec.anlog 100 UNIT/ML 10 ML VIAL 20 UNIT SUBCUT (21:13)
[2023-10-03 07:00] VITALS: BMI 31.5
[2023-10-03 08:00] VITALS: BP 130/69; PULSE 82; RESP 16; TEMP 36.9; O2SAT 94
[2023-10-03 08:34] LABS: Glucose, Whole Blood 139 mg/dL (60-115)
[2023-10-03] MEDS: Memantine HCl 5 MG TABLET PO ×2 (08:45→21:40)
[2023-10-03] MEDS: Levothyroxine Sodium 200 MCG TABLET PO (08:45)
[2023-10-03] MEDS: Sertraline HCL 100 MG TABLET PO (08:45)
[2023-10-03] MEDS: ARIPiprazole 10 MG TABLET PO (08:45)
[2023-10-03 12:42] LABS: Glucose, Whole Blood 188 mg/dL (60-115)
[2023-10-03] MEDS: Insulin Lispro 100 UNIT/ML 3 ML VIAL SUBCUT ×3 (13:20→21:41)
[2023-10-03 17:43] LABS: Glucose, Whole Blood 182 mg/dL (60-115)
[2023-10-03] MEDS: metFORMIN HCl ER 500 MG TAB.ER.24H 1000 MG PO (18:13)
[2023-10-03 20:00] VITALS: BP 132/76; PULSE 81; RESP 18; TEMP 36.9; O2SAT 97
[2023-10-03 20:54] LABS: Glucose, Whole Blood 187 mg/dL (60-115)
[2023-10-03] MEDS: HaloperidoL 5 MG TABLET PO (21:40)
[2023-10-03] MEDS: lamoTRIgine 25 MG TABLET 50 MG PO (21:40)
[2023-10-03] MEDS: Insulin Glargine,Hum.rec.anlog 100 UNIT/ML 10 ML VIAL 20 UNIT SUBCUT (21:41)
--- NOTE | 2023-10-03 23:02 | HO.PSYCHPN ---
Subjective Subjective Date of Service: 10/03/23 Reason For Visit: paranoia cognitive impairment Subjective Notes: Conditional Voluntary Healthcare Proxy: Yes Interim History: Patient is somewhat blunted in the community but he is somewhat active engaged has been cooperative with care. Blunted Has been agreeable to medical care Medication Compliance: Yes Mental Status Exam Mental Status Exam Narrative: The patient is dysphoric sad looking blunted poverty of content limited engagement slowed mentation. Decrease in paranoid concerns vague auditory hallucinations that he can not elucidate. At times some level of suspiciousness no overt aggression or marked paranoia denies SI HI actively difficulty with decision-making impaired insight judgment Diagnostics Vital Signs (24Hr): Vital Signs - 24 hr 10/03/23 08:00 10/03/23 20:00 Temperature 98.5 F 98.4 F Pulse Rate 82 81 Respiratory Rate 16 18 Blood Pressure 130/69 132/76 Pulse Oximetry 94 97 Oxygen Delivery Method Room Air Room Air BMI result Body Mass Index 31.5 Labs 09/10/23 20:00 09/26/23 07:32 Labs: Laboratory Results - last 48 hr 10/02/23 10/02/23 10/02/23 08:32 12:38 17:41 POC Glucose 135 H 171 H 162 H 10/02/23 10/03/23 10/03/23 20:57 08:24 12:36 POC Glucose 150 H 139 H 188 H 10/03/23 10/03/23 17:35 20:41 POC Glucose 182 H 187 H Imaging Radiology Impressions: ITS Impressions Brain MRI 09/19/23 20:33 IMPRESSION: 1. No demonstrated acute intracranial abnormalities. 2. Chronic mild to moderate nonspecific white matter changes, most notably in the deep white matter of the right frontal lobe. Mild to moderate generalized cerebral volume loss. Medications Medications Current Medications Acetaminophen (Acetaminophen 325 Mg Tablet) 650 mg PO Q6H PRN PRN Reason: Headache/Pain Mild Scale (1-3) Last Admin: 09/20/23 15:15 Dose: 650 mg Al Hydroxide/Mg Hydroxide (Magnesium Hydrox/Alum Hydrox 30 Ml Oral.Susp) 30 ml PO Q6H PRN PRN Reason: Heartburn/Nausea Aripiprazole (Aripiprazole 10 Mg Tablet) 10 mg PO DAILY MANAS Last Admin: 10/03/23 08:45 Dose: 10 mg Benztropine Mesylate (Benztropine Mesylate 0.5 Mg Tablet) 0.5 mg PO TID PRN PRN Reason: Extrapyramidal Effects Glucose (Glucose Gel 15 Gm Gel..Gram.) 15 gm PO Q15M PRN; Protocol PRN Reason: per Hypoglycemia Standing Ord. Haloperidol (Haloperidol 5 Mg Tablet) 5 mg PO BEDTIME [facility] Last Admin: 10/03/23 21:40 Dose: 5 mg Hydroxyzine HCl (Hydroxyzine Hcl 25 Mg Tablet) 25 mg PO Q6H PRN PRN Reason: Anxiety Last Admin: 09/28/23 08:31 Dose: 25 mg Dextrose (D10) 250 mls @ 750 mls/hr IV Q15M PRN; Protocol PRN Reason: per Hypoglycemia Standing Ord. Insulin Glargine (Insulin Glargine,Hum.Rec.Anlog 100 Unit/Ml 10 Ml Vial) 20 unit SUBCUT BEDTIME [facility] Last Admin: 10/03/23 21:41 Dose: 20 unit Insulin Human Lispro (Insulin Lispro 100 Unit/Ml 3 Ml Vial) 0 unit SUBCUT QIDACHS [facility]; Protocol Last Admin: 10/03/23 21:41 Dose: 2 unit Lamotrigine (Lamotrigine 25 Mg Tablet) 50 mg PO BEDTIME [facility] Last Admin: 10/03/23 21:40 Dose: 50 mg Levothyroxine Sodium (Levothyroxine Sodium 200 Mcg Tablet) 200 mcg PO DAILY [facility] Last Admin: 10/03/23 08:45 Dose: 200 mcg Magnesium Hydroxide (Milk Of Magnesia 30 Ml Oral.Susp) 30 ml PO DAILY PRN PRN Reason: Constipation Memantine (Memantine Hcl 5 Mg Tablet) 5 mg PO BID [facility] Last Admin: 10/03/23 21:40 Dose: 5 mg Metformin HCl (Metformin Hcl Er 500 Mg Tab.Er.24h) 1,000 mg PO DAILY@1700 [facility] Last Admin: 10/03/23 18:13 Dose: 1,000 mg Nicotine Polacrilex (Nicotine Polacrilex 2 Mg Gum) 4 mg BUCCAL Q2H PRN PRN Reason: Nicotine Cravings Sertraline HCl (Sertraline Hcl 100 Mg Tablet) 100 mg PO DAILY [facility] Last Admin: 10/03/23 08:45 Dose: 100 mg Trazodone HCl (Trazodone Hcl 50 Mg Tablet) 50 mg PO BEDTIME MRX1 PRN PRN Reason: Insomnia Last Admin: 09/13/23 20:27 Dose: 50 mg Allergies Allergies Allergy/AdvReac Type Severity Reaction Status Date / Time amoxicillin [AMOXICILLIN] Allergy Mild VOMITING/ABD Verified 09/10/23 19:44 PAIN Assessment & Plan Assessment & Plan (1) Schizoaffective disorder: Status: Acute Code(s): F25.9 - Schizoaffective disorder, unspecified (2) Hypothyroidism: Status: Acute Code(s): E03.9 - Hypothyroidism, unspecified (3) Type 2 diabetes mellitus: Status: Acute Code(s): E11.9 - Type 2 diabetes mellitus without complications Plan Patient is a 58 year old male with hx of Schizoaffective d/o and hypothyroid disorder/thyroid coma, stroke and brain aneurysm, who was brought to [facility] ER on a Section 12 d/t disorganized behavior, concern for his memory impairment, medications noncompliance and poor ADLs. Plan: CV 15 minute safety checks Continue home medications: Haldol 10mg PO daily Synthroid 200mcg PO daily Obtain labs; A1C/POCs Obtain collateral from sister Obtain records from last hospitalization. MOCA Referral for DMH services if patient is agreeable. encourage medication compliance;consider [facility]ARGAS discharge planning 09/11: Elevated fasting blood sugar elevated hemoglobin A1c 9.2 med consult placed put in point of care needed will start metformin Would benefit from clarity over recent hospitalization what this were done details regarding treatment continue Haldol unclear if patient has Healthcare proxy his [place] was low slowed cognition with poor details in depth at times during blankly regarding making judgments Unclear if any of this relates to past coma or 2 hypothyroidism. He does seem more impaired than when last seen unclear when last imaging was. Continue Haldol sitter neuro indira involvement regarding diagnostic picture. Patient does remain paranoid blunted suspicious apathetic. He might benefit from longer-term placement if available and appropriate at a later time involved DMH involvement would be quite helpful 09/12: cont haldol get records ? hcp ? start antidep unclear hx 09/13: Keeping to self. More talkative today. Pt concerned he will be transferred to [facility]. Pt stated, The paper I signed yesterday. Are you going to send me back to the last hospital? That place was horrible . Pt was educated he signed a release of information with Dr. Gonzalez to obtain records from [facility]. Pt was given a copy of the release he signed. Despite this, pt continues to be anxious about being transferred. Pt denies SI/HI/VH/AH. 09/14: Keeping to self. active on unit. showered. Pt reports feeling alright today; pt reports he is worried about where I'm going to go . Pt continues concerned he will be transferred to [facility]. Pt denies SI/HI/VH/AH. 09/15:Pt reports feeling alright today; pt continues to report he is worried about where I'm going to go . Responding with brief responses. Guarded. Observed standing in one place for a long period of time. Appears confused. Pt denies SI/HI/VH/AH. T/W spoke to patient's sister, Ros, with patients verbal consent. Ros reports concerns regarding patients ability to make decisions regarding his mental and physical health. She plans on contacting legal advice on obtaining guardianship of patient. 09/16:Patient's presents similar to yesterday's presentation. Responding with brief responses. Guarded. Observed standing in one place for a long period of time, when asked what he is doing, pt stated, I don't know . Pt reports he plans on contacting his sister today and try to convince her for me to stay there . Pt denies SI/HI/VH/AH. Continue current tx plan. 09/17: brief responses. Guarded. 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 Pt denies SI/HI/VH/AH. T/W and Dr. Gonzalez spoke to patient's sister, Ros. Ros stated being [facility] and plans on finding document. She plans on coming to the hospital on Saturday to be present for [facility] intake. 09/22/2023: No changes 09/23/2023 Patient flat apathetic difficult insight and judgment his sister is healthcare proxy if needed patient is accepting medical treatment Referral to [facility] 09/24/23 Considers starting Haldol Decanoate patient is agreeable superficially difficulty with exec fx was seen [facility] 09/25/23 Pt seen in f/u mood flat dysphoric difficulty engaging in conversation preoccupied with thought he wont be living with family thing slowed apathetic no clear response with namenda ? some improvement inc lamictal start low dose sertraline inc lamictal ck tsh 09/26/2023 Start Abilify as augmentation with Haldol see if can be more stimulating regarding depressed mood apathetic limited engagement sertraline 50 mg Lamictal 25 b.i.d. referral to [facility] which would have structure unclear if patient can engage with this he remains quite depressed has delusional beliefs regarding housing and that things have been done he has repeatedly tried to reach out to his sister denies active SI needs much help dressing talking with others encouragement to eat severe thought blocking Abilify might be more stimulating than Haldol which can be more dulling 09/27/23 Abilify started sertraline Lamictal encouraged step-down to [facility] encourage reality orientation denies active SI 09/27: Continue current regimen and plans 09/28: Continue current regimen and plans. 09/30/2023 Referral to [facility] increase Abilify to 5 mg daily eventually try and taper Haldol sertraline 50 mg daily 10/01/2023 Increase Abilify to 10 mg lower Haldol to 7 mg continue sertraline and Lamictal 10/02/2023 Abilify increased to 10 mg continue to taper Haldol sertraline 100 mg Lamictal increased to 75 mg patient apathetic withdrawn difficulty with placement some paranoia continues difficulty with decision making at times. Not physically aggressive internally preoccupied seems somewhat improved with Abilify sertraline Continue discharge planning 10/03/2023 Patient somewhat blunted flat slowed thinking during the day times staring. Change Abilify to 10 mg at bedtime. Scheduled Haldol will lowered to 2.5 mg Continue sertraline 100 mg Namenda 5 b.i.d. Reason for continued inpatient stay Substantial Risk for: inability to function, rapid decompensation and med/psych decompensation Time Spent With Patient Time: Total time managing care of this patient today ____ minutes.
[2023-10-04 08:00] VITALS: BP 133/75; PULSE 82; RESP 16; TEMP 36.5; O2SAT 98
[2023-10-04 08:42] LABS: Glucose, Whole Blood 111 mg/dL (60-115)
[2023-10-04] MEDS: Sertraline HCL 100 MG TABLET PO (09:10)
[2023-10-04] MEDS: Levothyroxine Sodium 200 MCG TABLET PO (09:11)
[2023-10-04] MEDS: Memantine HCl 5 MG TABLET PO ×2 (09:11→20:49)
[2023-10-04] MEDS: modafiniL 100 MG TABLET 50 MG PO (11:51)
[2023-10-04 12:53] LABS: Glucose, Whole Blood 187 mg/dL (60-115)
--- NOTE | 2023-10-04 12:53 | HO.PSYEVENT ---
Event Note Date of Service: 10/04/23 Time Spent With Patient Time: Total time managing care of this patient today ____ minutes.
[2023-10-04] MEDS: Insulin Lispro 100 UNIT/ML 3 ML VIAL SUBCUT ×3 (13:16→20:48)
[2023-10-04 15:03] LABS: Creatinine Clr Calc Pharmacy 94.6; Estimated Glomerular Filt Rate > 60
[2023-10-04 17:48] LABS: Glucose, Whole Blood 195 mg/dL (60-115)
[2023-10-04] MEDS: metFORMIN HCl ER 500 MG TAB.ER.24H 1000 MG PO (17:49)
[2023-10-04 20:16] VITALS: BP 143/72; PULSE 82; RESP 16; TEMP 36.9; O2SAT 98
[2023-10-04 20:17] LABS: Glucose, Whole Blood 213 mg/dL (60-115)
[2023-10-04] MEDS: Insulin Glargine,Hum.rec.anlog 100 UNIT/ML 10 ML VIAL 20 UNIT SUBCUT (20:48)
[2023-10-04] MEDS: traZODone HCL 50 MG TABLET PO (20:49)
[2023-10-04] MEDS: lamoTRIgine 25 MG TABLET 50 MG PO (20:49)
[2023-10-04] MEDS: ARIPiprazole 10 MG TABLET PO (20:49)
[2023-10-05 08:00] VITALS: BP 118/68; PULSE 84; TEMP 36.8; O2SAT 97
[2023-10-05 08:49] LABS: Glucose, Whole Blood 120 mg/dL (60-115)
[2023-10-05] MEDS: Memantine HCl 5 MG TABLET PO ×2 (09:14→21:46)
[2023-10-05] MEDS: Levothyroxine Sodium 200 MCG TABLET PO (09:14)
[2023-10-05] MEDS: Sertraline HCL 100 MG TABLET PO (09:14)
[2023-10-05] MEDS: modafiniL 100 MG TABLET 50 MG PO (09:15)
--- NOTE | 2023-10-05 09:49 | P.PNPSI_ITS ---
Subjective Subjective Date of Service: 10/05/23 Reason For Visit: paranoia cognitive impairment Interim History: Met with patient. Isolative. Patient reports not having any concerns and feeling fine. Feeling safe and well cared for. Review of Systems Review of Systems unremarkable Yes all other systems are reviewed and are negative Constitutional: Reports as per HPI Eyes: Reports as per HPI Reports as per HPI Cardiovascular: Reports as per HPI Respiratory: Reports as per HPI Gastrointestinal: Reports as per HPI Genitourinary: Reports as per HPI Musculoskeletal: Reports as per HPI Skin/Breast: Reports as per HPI Reports as per HPI Psychiatric: Reports as per HPI Endocrine: Reports as per HPI Hematologic/Lymphatic: Reports as per HPI Allergic/Immunologic: Reports as per HPI Mental Status Exam Mental Status Exam Narrative: The patient is dysphoric sad looking blunted poverty of content limited engagement slowed mentation. no overt paranoia or hallucinations. 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 Diagnostics Vital Signs (24Hr): Vital Signs - 24 hr 10/04/23 20:16 10/05/23 08:00 Temperature 98.5 F 98.2 F Pulse Rate 82 84 Respiratory Rate 16 Blood Pressure 143/72 H 118/68 Pulse Oximetry 98 97 Oxygen Delivery Method Room Air Room Air BMI result Body Mass Index 31.5 Labs 09/10/23 20:00 10/04/23 14:35 Labs: Laboratory Results - last 48 hr 10/03/23 10/03/23 10/03/23 12:36 17:35 20:41 Creatinine Estim Creat Clear Calc Estimated GFR POC Glucose 188 H 182 H 187 H 10/04/23 10/04/23 10/04/23 08:38 12:42 14:35 Creatinine 0.97 Estim Creat Clear Calc 94.6 Estimated GFR > 60 POC Glucose 111 187 H 10/04/23 10/04/23 10/05/23 17:41 20:13 08:44 Creatinine Estim Creat Clear Calc Estimated GFR POC Glucose 195 H 213 H 120 H Imaging Radiology Impressions: ITS Impressions Brain MRI 09/19/23 20:33 IMPRESSION: 1. No demonstrated acute intracranial abnormalities. 2. Chronic mild to moderate nonspecific white matter changes, most notably in the deep white matter of the right frontal lobe. Mild to moderate generalized cerebral volume loss. Medications Medications Current Medications Acetaminophen (Acetaminophen 325 Mg Tablet) 650 mg PO Q6H PRN PRN Reason: Headache/Pain Mild Scale (1-3) Last Admin: 09/20/23 15:15 Dose: 650 mg Al Hydroxide/Mg Hydroxide (Magnesium Hydrox/Alum Hydrox 30 Ml Oral.Susp) 30 ml PO Q6H PRN PRN Reason: Heartburn/Nausea Aripiprazole (Aripiprazole 10 Mg Tablet) 10 mg PO BEDTIME [facility] Last Admin: 10/04/23 20:49 Dose: 10 mg Benztropine Mesylate (Benztropine Mesylate 0.5 Mg Tablet) 0.5 mg PO TID PRN PRN Reason: Extrapyramidal Effects Glucose (Glucose Gel 15 Gm Gel..Gram.) 15 gm PO Q15M PRN; Protocol PRN Reason: per Hypoglycemia Standing Ord. Hydroxyzine HCl (Hydroxyzine Hcl 25 Mg Tablet) 25 mg PO Q6H PRN PRN Reason: Anxiety Last Admin: 09/28/23 08:31 Dose: 25 mg Dextrose (D10) 250 mls @ 750 mls/hr IV Q15M PRN; Protocol PRN Reason: per Hypoglycemia Standing Ord. Insulin Glargine (Insulin Glargine,Hum.Rec.Anlog 100 Unit/Ml 10 Ml Vial) 20 unit SUBCUT BEDTIME [facility] Last Admin: 10/04/23 20:48 Dose: 20 unit Insulin Human Lispro (Insulin Lispro 100 Unit/Ml 3 Ml Vial) 0 unit SUBCUT QIDACHS [facility]; Protocol Last Admin: 10/05/23 08:46 Dose: Not Given Lamotrigine (Lamotrigine 25 Mg Tablet) 50 mg PO BEDTIME [facility] Last Admin: 10/04/23 20:49 Dose: 50 mg Levothyroxine Sodium (Levothyroxine Sodium 200 Mcg Tablet) 200 mcg PO DAILY [facility] Last Admin: 10/05/23 09:14 Dose: 200 mcg Magnesium Hydroxide (Milk Of Magnesia 30 Ml Oral.Susp) 30 ml PO DAILY PRN PRN Reason: Constipation Memantine (Memantine Hcl 5 Mg Tablet) 5 mg PO BID [facility] Last Admin: 10/05/23 09:14 Dose: 5 mg Metformin HCl (Metformin Hcl Er 500 Mg Tab.Er.24h) 1,000 mg PO DAILY@1700 [facility] Last Admin: 10/04/23 17:49 Dose: 1,000 mg Modafinil (Modafinil 100 Mg Tablet) 50 mg PO DAILY [facility] Last Admin: 10/05/23 09:15 Dose: 50 mg Nicotine Polacrilex (Nicotine Polacrilex 2 Mg Gum) 4 mg BUCCAL Q2H PRN PRN Reason: Nicotine Cravings Sertraline HCl (Sertraline Hcl 100 Mg Tablet) 100 mg PO DAILY [facility] Last Admin: 10/05/23 09:14 Dose: 100 mg Trazodone HCl (Trazodone Hcl 50 Mg Tablet) 50 mg PO BEDTIME [facility]X1 PRN PRN Reason: Insomnia Last Admin: 10/04/23 20:49 Dose: 50 mg Allergies Allergies Allergy/AdvReac Type Severity Reaction Status Date / Time amoxicillin [AMOXICILLIN] Allergy Mild VOMITING/ABD Verified 09/10/23 19:44 PAIN Assessment & Plan Assessment & Plan (1) Schizoaffective disorder: Status: Acute Code(s): F25.9 - Schizoaffective disorder, unspecified (2) Hypothyroidism: Status: Acute Code(s): E03.9 - Hypothyroidism, unspecified (3) Type 2 diabetes mellitus: Status: Acute Code(s): E11.9 - Type 2 diabetes mellitus without complications Plan Patient is a 58 year old male with hx of Schizoaffective d/o and hypothyroid disorder/thyroid coma, stroke and brain aneurysm, who was brought to [facility] on a Section 12 d/t disorganized behavior, concern for his memory impairment, medications noncompliance and poor ADLs. Plan: CV 15 minute safety checks Continue home medications: Haldol 10mg PO daily Synthroid 200mcg PO daily Obtain labs; A1C/POCs Obtain collateral from sister Obtain records from last hospitalization. MOCA Referral for DMH services if patient is agreeable. encourage medication compliance;consider VARGAS discharge planning 09/11: Elevated fasting blood sugar elevated hemoglobin A1c 9.2 med consult placed put in point of care needed will start metformin Would benefit from clarity over recent hospitalization what this were done details regarding treatment continue Haldol unclear if patient has Healthcare proxy his [place] was low slowed cognition with poor details in depth at times during blankly regarding making judgments Unclear if any of this relates to past coma or 2 hypothyroidism. He does seem more impaired than when last seen unclear when last imaging was. Continue Haldol sitter neuro [facility]ira involvement regarding diagnostic picture. Patient does remain paranoid blunted suspicious apathetic. He might benefit from longer- term placement if available and appropriate at a later time involved [facility] involvement would be quite helpful 09/12: cont haldol get records ? hcp ? start antidep unclear hx 09/13: Keeping to self. More talkative today. Pt concerned he will be transferred to [facility]. Pt stated, The paper I signed yesterday. Are you going to send me back to the last hospital? That place was horrible . Pt was educated he signed a release of information with Dr. Gonzalez to obtain records from [facility]. Pt was given a copy of the release he signed. Despite this, pt continues to be anxious about being transferred. Pt denies SI/HI/VH/AH. 09/14: Keeping to self. active on unit. showered. Pt reports feeling alright today; pt reports he is worried about where I'm going to go . Pt continues concerned he will be transferred to [facility]. Pt denies SI/HI/VH/AH. 09/15:Pt reports feeling alright today; pt continues to report he is worried about where I'm going to go . Responding with brief responses. Guarded. Observed standing in one place for a long period of time. Appears confused. Pt denies SI/HI/VH/AH. T/W spoke to patient's sister, Ros, with patients verbal consent. Ros reports concerns regarding patients ability to make decisions regarding his mental and physical health. She plans on contacting legal advice on obtaining guardianship of patient. 09/16:Patient's presents similar to yesterday's presentation. Responding with brief responses. Guarded. Observed standing in one place for a long period of time, when asked what he is doing, pt stated, I don't know . Pt reports he plans on contacting his sister today and try to convince her for me to stay there . Pt denies SI/HI/VH/AH. Continue current tx plan. 09/17: brief responses. Guarded. 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 Pt denies SI/HI/VH/AH. T/W and Dr. Gonzalez spoke to patient's sister, Ros. Ros stated being [facility] H[facility] and plans on finding document. She plans on coming to the hospital on Saturday to be present for [facility] intake. 09/22/2023: No changes 09/23/2023 Patient flat apathetic difficult insight and judgment his sister is healthcare proxy if needed patient is accepting medical treatment Referral to [facility] 09/24/23 Considers starting Haldol Decanoate patient is agreeable superficially difficulty with exec fx was seen [facility] 09/25/23 Pt seen in f/u mood flat dysphoric difficulty engaging in conversation preoccupied with thought he wont be living with family thing slowed apathetic no clear response with namenda ? some improvement inc lamictal start low dose sertraline inc lamictal ck tsh 09/26/2023 Start Abilify as augmentation with Haldol see if can be more stimulating regarding depressed mood apathetic limited engagement sertraline 50 mg Lamictal 25 b.i.d. referral to [facility] which would have structure unclear if patient can engage with this he remains quite depressed has delusional beliefs regarding housing and that things have been done he has repeatedly tried to reach out to his sister denies active SI needs much help dressing talking with others encouragement to eat severe thought blocking Abilify might be more stimulating than Haldol which can be more dulling 09/27/23 Abilify started sertraline Lamictal encouraged step-down to [facility] encourage reality orientation denies active SI 09/27: Continue current regimen and plans 09/28: Continue current regimen and plans. 09/30/2023 Referral to [facility] increase Abilify to 5 mg daily eventually try and taper Haldol sertraline 50 mg daily 10/01/2023 Increase Abilify to 10 mg lower Haldol to 7 mg continue sertraline and Lamictal 10/02/2023 Abilify increased to 10 mg continue to taper Haldol sertraline 100 mg Lamictal increased to 75 mg patient apathetic withdrawn difficulty with placement some paranoia continues difficulty with decision making at times. Not physically aggressive internally preoccupied seems somewhat improved with Abilify sertraline Continue discharge planning 10/03/2023 Patient somewhat blunted flat slowed thinking during the day times staring. Change Abilify to 10 mg at bedtime. Scheduled Haldol will lowered to 2.5 mg Continue sertraline 100 mg Namenda 5 b.i.d. 10/05/2023: No changes Reason for continued inpatient stay Substantial Risk for: inability to function Time Spent With Patient Time: Total time managing care of this patient today ____ minutes.
[2023-10-05 12:58] LABS: Glucose, Whole Blood 130 mg/dL (60-115)
[2023-10-05 17:31] LABS: Glucose, Whole Blood 189 mg/dL (60-115)
[2023-10-05] MEDS: Insulin Lispro 100 UNIT/ML 3 ML VIAL SUBCUT ×2 (17:34→21:48)
[2023-10-05] MEDS: metFORMIN HCl ER 500 MG TAB.ER.24H 1000 MG PO (17:35)
[2023-10-05 21:17] LABS: Glucose, Whole Blood 164 mg/dL (60-115)
[2023-10-05 21:30] VITALS: BP 144/71; PULSE 85; RESP 16; TEMP 36.8; O2SAT 98
[2023-10-05] MEDS: ARIPiprazole 10 MG TABLET PO (21:46)
[2023-10-05] MEDS: traZODone HCL 50 MG TABLET PO (21:46)
[2023-10-05] MEDS: Insulin Glargine,Hum.rec.anlog 100 UNIT/ML 10 ML VIAL 20 UNIT SUBCUT (21:47)
[2023-10-05] MEDS: lamoTRIgine 25 MG TABLET 50 MG PO (21:47)
[2023-10-06 08:00] VITALS: BP 134/76; PULSE 84; RESP 14; TEMP 36.4; O2SAT 98
[2023-10-06 08:36] LABS: Glucose, Whole Blood 114 mg/dL (60-115)
--- NOTE | 2023-10-06 08:38 | HO.PSYCHPN ---
Subjective Subjective Date of Service: 10/06/23 Reason For Visit: paranoia cognitive impairment Interim History: Met with patient. In the milieu today. Bright in affect. Watching the Olympics and swimming. Patient reports not having any concerns and feeling fine. Feeling safe and well cared for. Medication Compliance: Yes Side effects from medications: No Attending Groups: No Review of Systems Acute medical concerns: No Review of Systems Review of Systems unremarkable Mental Status Exam Mental Status Exam Narrative: In the milieu. Self-care okay. Brighter affect. No overt paranoia or hallucinations. No SI HI actively difficulty with decision-making impaired insight judgment Diagnostics Vital Signs (24Hr): Vital Signs - 24 hr 10/05/23 21:30 10/06/23 08:00 Temperature 98.2 F 97.5 F Pulse Rate 85 84 Respiratory Rate 16 14 Blood Pressure 144/71 H 134/76 Pulse Oximetry 98 98 Oxygen Delivery Method Room Air Room Air BMI result Body Mass Index 31.5 Labs 09/10/23 20:00 10/04/23 14:35 Labs: Laboratory Results - last 48 hr 10/04/23 10/04/23 10/04/23 08:38 12:42 14:35 Creatinine 0.97 Estim Creat Clear Calc 94.6 Estimated GFR > 60 POC Glucose 111 187 H 10/04/23 10/04/23 10/05/23 17:41 20:13 08:44 Creatinine Estim Creat Clear Calc Estimated GFR POC Glucose 195 H 213 H 120 H 10/05/23 10/05/23 10/05/23 12:53 17:21 21:13 Creatinine Estim Creat Clear Calc Estimated GFR POC Glucose 130 H 189 H 164 H 10/06/23 08:30 Creatinine Estim Creat Clear Calc Estimated GFR POC Glucose 114 Imaging Radiology Impressions: ITS Impressions Brain MRI 09/19/23 20:33 IMPRESSION: 1. No demonstrated acute intracranial abnormalities. 2. Chronic mild to moderate nonspecific white matter changes, most notably in the deep white matter of the right frontal lobe. Mild to moderate generalized cerebral volume loss. Medications Medications Current Medications Acetaminophen (Acetaminophen 325 Mg Tablet) 650 mg PO Q6H PRN PRN Reason: Headache/Pain Mild Scale (1-3) Last Admin: 09/20/23 15:15 Dose: 650 mg Al Hydroxide/Mg Hydroxide (Magnesium Hydrox/Alum Hydrox 30 Ml Oral.Susp) 30 ml PO Q6H PRN PRN Reason: Heartburn/Nausea Aripiprazole (Aripiprazole 10 Mg Tablet) 10 mg PO BEDTIME [facility] Last Admin: 10/05/23 21:46 Dose: 10 mg Benztropine Mesylate (Benztropine Mesylate 0.5 Mg Tablet) 0.5 mg PO TID PRN PRN Reason: Extrapyramidal Effects Glucose (Glucose Gel 15 Gm Gel..Gram.) 15 gm PO Q15M PRN; Protocol PRN Reason: per Hypoglycemia Standing Ord. Hydroxyzine HCl (Hydroxyzine Hcl 25 Mg Tablet) 25 mg PO Q6H PRN PRN Reason: Anxiety Last Admin: 09/28/23 08:31 Dose: 25 mg Dextrose (D10) 250 mls @ 750 mls/hr IV Q15M PRN; Protocol PRN Reason: per Hypoglycemia Standing Ord. Insulin Glargine (Insulin Glargine,Hum.Rec.Anlog 100 Unit/Ml 10 Ml Vial) 20 unit SUBCUT BEDTIME [facility] Last Admin: 10/05/23 21:47 Dose: 20 unit Insulin Human Lispro (Insulin Lispro 100 Unit/Ml 3 Ml Vial) 0 unit SUBCUT QIDACHS [facility]; Protocol Last Admin: 10/05/23 21:48 Dose: 2 unit Lamotrigine (Lamotrigine 25 Mg Tablet) 50 mg PO BEDTIME [facility] Last Admin: 10/05/23 21:47 Dose: 50 mg Levothyroxine Sodium (Levothyroxine Sodium 200 Mcg Tablet) 200 mcg PO DAILY [facility] Last Admin: 10/05/23 09:14 Dose: 200 mcg Magnesium Hydroxide (Milk Of Magnesia 30 Ml Oral.Susp) 30 ml PO DAILY PRN PRN Reason: Constipation Memantine (Memantine Hcl 5 Mg Tablet) 5 mg PO BID [facility] Last Admin: 10/05/23 21:46 Dose: 5 mg Metformin HCl (Metformin Hcl Er 500 Mg Tab.Er.24h) 1,000 mg PO DAILY@1700 [facility] Last Admin: 10/05/23 17:35 Dose: 1,000 mg Modafinil (Modafinil 100 Mg Tablet) 50 mg PO DAILY [facility] Last Admin: 10/05/23 09:15 Dose: 50 mg Nicotine Polacrilex (Nicotine Polacrilex 2 Mg Gum) 4 mg BUCCAL Q2H PRN PRN Reason: Nicotine Cravings Sertraline HCl (Sertraline Hcl 100 Mg Tablet) 100 mg PO DAILY [facility] Last Admin: 10/05/23 09:14 Dose: 100 mg Trazodone HCl (Trazodone Hcl 50 Mg Tablet) 50 mg PO BEDTIME MRX1 PRN PRN Reason: Insomnia Last Admin: 10/05/23 21:46 Dose: 50 mg Allergies Allergies Allergy/AdvReac Type Severity Reaction Status Date / Time amoxicillin [AMOXICILLIN] Allergy Mild VOMITING/ABD Verified 09/10/23 19:44 PAIN Assessment & Plan Assessment & Plan (1) Schizoaffective disorder: Status: Acute Code(s): F25.9 - Schizoaffective disorder, unspecified (2) Hypothyroidism: Status: Acute Code(s): E03.9 - Hypothyroidism, unspecified (3) Type 2 diabetes mellitus: Status: Acute Code(s): E11.9 - Type 2 diabetes mellitus without complications Plan Patient is a 58 year old male with hx of Schizoaffective d/o and hypothyroid disorder/thyroid coma, stroke and brain aneurysm, who was brought to [facility] on a Section 12 d/t disorganized behavior, concern for his memory impairment, medications noncompliance and poor ADLs. Plan: CV 15 minute safety checks Continue home medications: Haldol 10mg PO daily Synthroid 200mcg PO daily Obtain labs; A1C/POCs Obtain collateral from sister Obtain records from last hospitalization. MOCA Referral for DMH services if patient is agreeable. encourage medication compliance;consider VARGAS discharge planning 09/11: Elevated fasting blood sugar elevated hemoglobin A1c 9.2 med consult placed put in point of care needed will start metformin Would benefit from clarity over recent hospitalization what this were done details regarding treatment continue Haldol unclear if patient has Healthcare proxy his [place] was low slowed cognition with poor details in depth at times during blankly regarding making judgments Unclear if any of this relates to past coma or 2 hypothyroidism. He does seem more impaired than when last seen unclear when last imaging was. Continue Haldol sitter neuro indira involvement regarding diagnostic picture. Patient does remain paranoid blunted suspicious apathetic. He might benefit from longer-term placement if available and appropriate at a later time involved [facility] involvement would be quite helpful 09/12: cont haldol get records ? hcp ? start antidep unclear hx 09/13: Keeping to self. More talkative today. Pt concerned he will be transferred to [facility]. Pt stated, The paper I signed yesterday. Are you going to send me back to the last hospital? That place was horrible . Pt was educated he signed a release of information with Dr. Gonzalez to obtain records from [facility]. Pt was given a copy of the release he signed. Despite this, pt continues to be anxious about being transferred. Pt denies SI/HI/VH/AH. 09/14: Keeping to self. active on unit. showered. Pt reports feeling alright today; pt reports he is worried about where I'm going to go . Pt continues concerned he will be transferred to [facility]. Pt denies SI/HI/VH/AH. 09/15:Pt reports feeling alright today; pt continues to report he is worried about where I'm going to go . Responding with brief responses. Guarded. Observed standing in one place for a long period of time. Appears confused. Pt denies SI/HI/VH/AH. T/W spoke to patient's sister, Ros, with patients verbal consent. Ros reports concerns regarding patients ability to make decisions regarding his mental and physical health. She plans on contacting legal advice on obtaining guardianship of patient. 09/16:Patient's presents similar to yesterday's presentation. Responding with brief responses. Guarded. Observed standing in one place for a long period of time, when asked what he is doing, pt stated, I don't know . Pt reports he plans on contacting his sister today and try to convince her for me to stay there . Pt denies SI/HI/VH/AH. Continue current tx plan. 09/17: brief responses. Guarded. 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 Pt denies SI/HI/VH/AH. T/W and Dr. Gonzalez spoke to patient's sister, Ros. Ros stated being [facility] H[facility] and plans on finding document. She plans on coming to the hospital on Saturday to be present for [facility] intake. 09/22/2023: No changes 09/23/2023 Patient flat apathetic difficult insight and judgment his sister is healthcare proxy if needed patient is accepting medical treatment Referral to [facility] 09/24/23 Considers starting Haldol Decanoate patient is agreeable superficially difficulty with exec fx was seen [facility] 09/25/23 Pt seen in f/u mood flat dysphoric difficulty engaging in conversation preoccupied with thought he wont be living with family thing slowed apathetic no clear response with namenda ? some improvement inc lamictal start low dose sertraline inc lamictal ck tsh 09/26/2023 Start Abilify as augmentation with Haldol see if can be more stimulating regarding depressed mood apathetic limited engagement sertraline 50 mg Lamictal 25 b.i.d. referral to [facility] which would have structure unclear if patient can engage with this he remains quite depressed has delusional beliefs regarding housing and that things have been done he has repeatedly tried to reach out to his sister denies active SI needs much help dressing talking with others encouragement to eat severe thought blocking Abilify might be more stimulating than Haldol which can be more dulling 09/27/23 Abilify started sertraline Lamictal encouraged step-down to [facility] encourage reality orientation denies active SI 09/27: Continue current regimen and plans 09/28: Continue current regimen and plans. 09/30/2023 Referral to [facility] increase Abilify to 5 mg daily eventually try and taper Haldol sertraline 50 mg daily 10/01/2023 Increase Abilify to 10 mg lower Haldol to 7 mg continue sertraline and Lamictal 10/02/2023 Abilify increased to 10 mg continue to taper Haldol sertraline 100 mg Lamictal increased to 75 mg patient apathetic withdrawn difficulty with placement some paranoia continues difficulty with decision making at times. Not physically aggressive internally preoccupied seems somewhat improved with Abilify sertraline Continue discharge planning 10/03/2023 Patient somewhat blunted flat slowed thinking during the day times staring. Change Abilify to 10 mg at bedtime. Scheduled Haldol will lowered to 2.5 mg Continue sertraline 100 mg Namenda 5 b.i.d. 10/05/2023: No changes 10/06/2023: No changes Reason for continued inpatient stay Substantial Risk for: rapid decompensation Time Spent With Patient Time: Total time managing care of this patient today ____ minutes.
[2023-10-06] MEDS: modafiniL 100 MG TABLET 50 MG PO (08:46)
[2023-10-06] MEDS: Levothyroxine Sodium 200 MCG TABLET PO (08:46)
[2023-10-06] MEDS: Memantine HCl 5 MG TABLET PO ×2 (08:47→21:01)
[2023-10-06] MEDS: Sertraline HCL 100 MG TABLET PO (08:47)
[2023-10-06 12:52] LABS: Glucose, Whole Blood 211 mg/dL (60-115)
[2023-10-06] MEDS: Insulin Lispro 100 UNIT/ML 3 ML VIAL SUBCUT ×2 (12:57→17:48)
[2023-10-06 17:40] LABS: Glucose, Whole Blood 189 mg/dL (60-115)
[2023-10-06] MEDS: metFORMIN HCl ER 500 MG TAB.ER.24H 1000 MG PO (17:41)
[2023-10-06 20:50] LABS: Glucose, Whole Blood 149 mg/dL (60-115)
[2023-10-06 20:56] VITALS: BP 147/75; PULSE 81; RESP 18; TEMP 36.9; O2SAT 96
[2023-10-06] MEDS: lamoTRIgine 25 MG TABLET 50 MG PO (21:01)
[2023-10-06] MEDS: ARIPiprazole 10 MG TABLET PO (21:01)
[2023-10-06] MEDS: Insulin Glargine,Hum.rec.anlog 100 UNIT/ML 10 ML VIAL 20 UNIT SUBCUT (21:04)
[2023-10-07 07:50] VITALS: BP 121/65; PULSE 83; RESP 14; TEMP 36.4; O2SAT 94
[2023-10-07 08:25] LABS: Glucose, Whole Blood 117 mg/dL (60-115)
[2023-10-07] MEDS: modafiniL 100 MG TABLET 50 MG PO (08:59)
[2023-10-07] MEDS: Sertraline HCL 100 MG TABLET PO (08:59)
[2023-10-07] MEDS: Memantine HCl 5 MG TABLET PO ×2 (08:59→20:44)
[2023-10-07] MEDS: Levothyroxine Sodium 200 MCG TABLET PO (09:00)
[2023-10-07 13:01] LABS: Glucose, Whole Blood 141 mg/dL (60-115)
[2023-10-07 17:53] LABS: Glucose, Whole Blood 180 mg/dL (60-115)
[2023-10-07] MEDS: Insulin Lispro 100 UNIT/ML 3 ML VIAL SUBCUT ×2 (17:57→21:02)
[2023-10-07] MEDS: metFORMIN HCl ER 500 MG TAB.ER.24H 1000 MG PO (17:58)
[2023-10-07 20:00] VITALS: BP 119/58; PULSE 92; RESP 18; TEMP 37.1; O2SAT 97
[2023-10-07] MEDS: lamoTRIgine 25 MG TABLET 50 MG PO (20:44)
[2023-10-07] MEDS: ARIPiprazole 10 MG TABLET PO (20:44)
[2023-10-07] MEDS: Insulin Glargine,Hum.rec.anlog 100 UNIT/ML 10 ML VIAL 20 UNIT SUBCUT (21:02)
[2023-10-07 21:04] LABS: Glucose, Whole Blood 184 mg/dL (60-115)
--- NOTE | 2023-10-07 21:40 | P.PNPSI_ITS ---
Subjective Subjective Date of Service: 10/04/23 Reason For Visit: paranoia cognitive impairment Subjective Notes: Conditional Voluntary Interim History: Patient seen psychiatric follow-up the patient is somewhat withdrawn depressed hesitant. Modafinil started for alertness and apathy sertraline Lamictal Haldol tapered and discontinued patient on Abilify Medication Compliance: Yes Mental Status Exam Mental Status Exam Narrative: The patient is dysphoric sad looking blunted poverty of content limited engagement slowed mentation. Decrease in paranoid concerns vague auditory hallucinations that he can not elucidate. At times some level of suspiciousness no overt aggression or marked paranoia denies SI HI actively difficulty with decision-making impaired insight judgment Diagnostics Vital Signs (24Hr): Vital Signs - 24 hr 10/07/23 07:50 10/07/23 20:00 Temperature 97.5 F 98.8 F Pulse Rate 83 92 Respiratory Rate 14 18 Blood Pressure 121/65 119/58 L Pulse Oximetry 94 97 Oxygen Delivery Method Room Air Room Air BMI result Body Mass Index 31.5 Labs 09/10/23 20:00 10/04/23 14:35 Labs: Laboratory Results - last 48 hr 10/06/23 10/06/23 10/06/23 08:30 12:48 17:36 POC Glucose 114 211 H 189 H 10/06/23 10/07/23 10/07/23 20:46 08:21 12:57 POC Glucose 149 H 117 H 141 H 10/07/23 10/07/23 17:50 20:55 POC Glucose 180 H 184 H Imaging Radiology Impressions: ITS Impressions Brain MRI 09/19/23 20:33 IMPRESSION: 1. No demonstrated acute intracranial abnormalities. 2. Chronic mild to moderate nonspecific white matter changes, most notably in the deep white matter of the right frontal lobe. Mild to moderate generalized cerebral volume loss. Medications Medications Current Medications Acetaminophen (Acetaminophen 325 Mg Tablet) 650 mg PO Q6H PRN PRN Reason: Headache/Pain Mild Scale (1-3) Last Admin: 09/20/23 15:15 Dose: 650 mg Al Hydroxide/Mg Hydroxide (Magnesium Hydrox/Alum Hydrox 30 Ml Oral.Susp) 30 ml PO Q6H PRN PRN Reason: Heartburn/Nausea Aripiprazole (Aripiprazole 10 Mg Tablet) 10 mg PO BEDTIME MANAS Last Admin: 10/07/23 20:44 Dose: 10 mg Benztropine Mesylate (Benztropine Mesylate 0.5 Mg Tablet) 0.5 mg PO TID PRN PRN Reason: Extrapyramidal Effects Glucose (Glucose Gel 15 Gm Gel..Gram.) 15 gm PO Q15M PRN; Protocol PRN Reason: per Hypoglycemia Standing Ord. Hydroxyzine HCl (Hydroxyzine Hcl 25 Mg Tablet) 25 mg PO Q6H PRN PRN Reason: Anxiety Last Admin: 09/28/23 08:31 Dose: 25 mg Dextrose (D10) 250 mls @ 750 mls/hr IV Q15M PRN; Protocol PRN Reason: per Hypoglycemia Standing Ord. Insulin Glargine (Insulin Glargine,Hum.Rec.Anlog 100 Unit/Ml 10 Ml Vial) 20 unit SUBCUT BEDTIME [facility] Last Admin: 10/07/23 21:02 Dose: 20 unit Insulin Human Lispro (Insulin Lispro 100 Unit/Ml 3 Ml Vial) 0 unit SUBCUT QIDACHS [facility]; Protocol Last Admin: 10/07/23 21:02 Dose: 2 unit Lamotrigine (Lamotrigine 25 Mg Tablet) 50 mg PO BEDTIME [facility] Last Admin: 10/07/23 20:44 Dose: 50 mg Levothyroxine Sodium (Levothyroxine Sodium 200 Mcg Tablet) 200 mcg PO DAILY [facility] Last Admin: 10/07/23 09:00 Dose: 200 mcg Magnesium Hydroxide (Milk Of Magnesia 30 Ml Oral.Susp) 30 ml PO DAILY PRN PRN Reason: Constipation Memantine (Memantine Hcl 5 Mg Tablet) 5 mg PO BID [facility] Last Admin: 10/07/23 20:44 Dose: 5 mg Metformin HCl (Metformin Hcl Er 500 Mg Tab.Er.24h) 1,000 mg PO DAILY@1700 [facility] Last Admin: 10/07/23 17:58 Dose: 1,000 mg Modafinil (Modafinil 100 Mg Tablet) 50 mg PO DAILY [facility] Last Admin: 10/07/23 08:59 Dose: 50 mg Nicotine Polacrilex (Nicotine Polacrilex 2 Mg Gum) 4 mg BUCCAL Q2H PRN PRN Reason: Nicotine Cravings Sertraline HCl (Sertraline Hcl 100 Mg Tablet) 100 mg PO DAILY [facility] Last Admin: 10/07/23 08:59 Dose: 100 mg Trazodone HCl (Trazodone Hcl 50 Mg Tablet) 50 mg PO BEDTIME MRX1 PRN PRN Reason: Insomnia Last Admin: 10/05/23 21:46 Dose: 50 mg Allergies Allergies Allergy/AdvReac Type Severity Reaction Status Date / Time amoxicillin [AMOXICILLIN] Allergy Mild VOMITING/ABD Verified 09/10/23 19:44 PAIN Assessment & Plan Assessment & Plan (1) Schizoaffective disorder: Status: Acute Code(s): F25.9 - Schizoaffective disorder, unspecified (2) Hypothyroidism: Status: Acute Code(s): E03.9 - Hypothyroidism, unspecified (3) Type 2 diabetes mellitus: Status: Acute Code(s): E11.9 - Type 2 diabetes mellitus without complications Plan Patient is a 58 year old male with hx of Schizoaffective d/o and hypothyroid disorder/thyroid coma, stroke and brain aneurysm, who was brought to [facility] [place] [place] [facility] on a Section 12 d/t disorganized behavior, concern for his memory impairment, medications noncompliance and poor ADLs. Plan: CV 15 minute safety checks Continue home medications: Haldol 10mg PO daily Synthroid 200mcg PO daily Obtain labs; A1C/POCs Obtain collateral from sister Obtain records from last hospitalization. MOCA Referral for DMH services if patient is agreeable. encourage medication compliance;consider VARGAS discharge planning 09/11: Elevated fasting blood sugar elevated hemoglobin A1c 9.2 med consult placed put in point of care needed will start metformin Would benefit from clarity over recent hospitalization what this were done details regarding treatment continue Haldol unclear if patient has Healthcare proxy his [place] was low slowed cognition with poor details in depth at times during blankly regarding making judgments Unclear if any of this relates to past coma or 2 hypothyroidism. He does seem more impaired than when last seen unclear when last imaging was. Continue Haldol sitter neuro indira involvement regarding diagnostic picture. Patient does remain paranoid blunted suspicious apathetic. He might benefit from longer- term placement if available and appropriate at a later time involved DMH involvement would be quite helpful 09/12: cont haldol get records ? hcp ? start antidep unclear hx 09/13: Keeping to self. More talkative today. Pt concerned he will be transferred to [facility]. Pt stated, The paper I signed yesterday. Are you going to send me back to the last hospital? That place was horrible . Pt was educated he signed a release of information with Dr. Gonzalez to obtain records from [facility]. Pt was given a copy of the release he signed. Despite this, pt continues to be anxious about being transferred. Pt denies SI/HI/VH/AH. 09/14: Keeping to self. active on unit. showered. Pt reports feeling alright today; pt reports he is worried about where I'm going to go . Pt continues concerned he will be transferred to [facility]. Pt denies SI/HI/VH/AH. 09/15:Pt reports feeling alright today; pt continues to report he is worried about where I'm going to go . Responding with brief responses. Guarded. Observed standing in one place for a long period of time. Appears confused. Pt denies SI/HI/VH/AH. T/W spoke to patient's sister, Ros, with patients verbal consent. Ros reports concerns regarding patients ability to make decisions regarding his mental and physical health. She plans on contacting legal advice on obtaining guardianship of patient. 09/16:Patient's presents similar to yesterday's presentation. Responding with brief responses. Guarded. Observed standing in one place for a long period of time, when asked what he is doing, pt stated, I don't know . Pt reports he plans on contacting his sister today and try to convince her for me to stay there . Pt denies SI/HI/VH/AH. Continue current tx plan. 09/17: brief responses. Guarded. 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 Pt denies SI/HI/VH/AH. T/W and Dr. Gonzalez spoke to patient's sister, Ros. Ros stated being [place] HCP and plans on finding document. She plans on coming to the hospital on Saturday to be present for [facility] intake. 09/22/2023: No changes 09/23/2023 Patient flat apathetic difficult insight and judgment his sister is healthcare proxy if needed patient is accepting medical treatment Referral to [facility] 09/24/23 Considers starting Haldol Decanoate patient is agreeable superficially difficulty with exec fx was seen [facility] 09/25/23 Pt seen in f/u mood flat dysphoric difficulty engaging in conversation preoccupied with thought he wont be living with family thing slowed apathetic no clear response with namenda ? some improvement inc lamictal start low dose sertraline inc lamictal ck tsh 09/26/2023 Start Abilify as augmentation with Haldol see if can be more stimulating regarding depressed mood apathetic limited engagement sertraline 50 mg Lamictal 25 b.i.d. referral to [facility] which would have structure unclear if patient can engage with this he remains quite depressed has delusional beliefs regarding housing and that things have been done he has repeatedly tried to reach out to his sister denies active SI needs much help dressing talking with others encouragement to eat severe thought blocking Abilify might be more stimulating than Haldol which can be more dulling 09/27/23 Abilify started sertraline Lamictal encouraged step-down to [facility] encourage reality orientation denies active SI 09/27: Continue current regimen and plans 09/28: Continue current regimen and plans. 09/30/2023 [address]erral to [facility] increase Abilify to 5 mg daily eventually try and taper Haldol sertraline 50 mg daily 10/01/2023 Increase Abilify to 10 mg lower Haldol to 7 mg continue sertraline and Lamictal 10/02/2023 Abilify increased to 10 mg continue to taper Haldol sertraline 100 mg Lamictal increased to 75 mg patient apathetic withdrawn difficulty with placement some paranoia continues difficulty with decision making at times. Not physically aggressive internally preoccupied seems somewhat improved with Abilify sertraline Continue discharge planning 10/03/2023 Patient somewhat blunted flat slowed thinking during the day times staring. Change Abilify to 10 mg at bedtime. Scheduled Haldol will lowered to 2.5 mg Continue sertraline 100 mg Namenda 5 b.i.d. 10/04/2023 . Haldol discontinued modafinil low-dose monitor for psychosis or agitation continue discharge planning Reason for continued inpatient stay Substantial Risk for: inability to function, rapid decompensation and med/psych decompensation Time Spent With Patient Time: Total time managing care of this patient today ____ minutes.
--- NOTE | 2023-10-07 21:45 | HO.PSYCHPN ---
Subjective Subjective Date of Service: 10/07/23 Reason For Visit: paranoia cognitive impairment Subjective Notes: Conditional Voluntary Interim History: Patient states he is feeling somewhat better no negative effects from recent change in medication Referrals in process for discharge planning Medication Compliance: Yes Mental Status Exam Mental Status Exam Narrative: The patient is dysphoric sad looking blunted poverty of content limited engagement slowed mentation. Decrease in paranoid concerns slowed mentation continues At times some level of suspiciousness no overt aggression or marked paranoia denies SI HI actively difficulty with decision-making impaired insight judgment Diagnostics Vital Signs (24Hr): Vital Signs - 24 hr 10/07/23 07:50 10/07/23 20:00 Temperature 97.5 F 98.8 F Pulse Rate 83 92 Respiratory Rate 14 18 Blood Pressure 121/65 119/58 L Pulse Oximetry 94 97 Oxygen Delivery Method Room Air Room Air BMI result Body Mass Index 31.5 Labs 09/10/23 20:00 10/04/23 14:35 Labs: Laboratory Results - last 48 hr 10/06/23 10/06/23 10/06/23 08:30 12:48 17:36 POC Glucose 114 211 H 189 H 10/06/23 10/07/23 10/07/23 20:46 08:21 12:57 POC Glucose 149 H 117 H 141 H 10/07/23 10/07/23 17:50 20:55 POC Glucose 180 H 184 H Imaging Radiology Impressions: ITS Impressions Brain MRI 09/19/23 20:33 IMPRESSION: 1. No demonstrated acute intracranial abnormalities. 2. Chronic mild to moderate nonspecific white matter changes, most notably in the deep white matter of the right frontal lobe. Mild to moderate generalized cerebral volume loss. Medications Medications Current Medications Acetaminophen (Acetaminophen 325 Mg Tablet) 650 mg PO Q6H PRN PRN Reason: Headache/Pain Mild Scale (1-3) Last Admin: 09/20/23 15:15 Dose: 650 mg Al Hydroxide/Mg Hydroxide (Magnesium Hydrox/Alum Hydrox 30 Ml Oral.Susp) 30 ml PO Q6H PRN PRN Reason: Heartburn/Nausea Aripiprazole (Aripiprazole 10 Mg Tablet) 10 mg PO BEDTIME MANAS Last Admin: 10/07/23 20:44 Dose: 10 mg Benztropine Mesylate (Benztropine Mesylate 0.5 Mg Tablet) 0.5 mg PO TID PRN PRN Reason: Extrapyramidal Effects Glucose (Glucose Gel 15 Gm Gel..Gram.) 15 gm PO Q15M PRN; Protocol PRN Reason: per Hypoglycemia Standing Ord. Hydroxyzine HCl (Hydroxyzine Hcl 25 Mg Tablet) 25 mg PO Q6H PRN PRN Reason: Anxiety Last Admin: 09/28/23 08:31 Dose: 25 mg Dextrose (D10) 250 mls @ 750 mls/hr IV Q15M PRN; Protocol PRN Reason: per Hypoglycemia Standing Ord. Insulin Glargine (Insulin Glargine,Hum.Rec.Anlog 100 Unit/Ml 10 Ml Vial) 20 unit SUBCUT BEDTIME [facility] Last Admin: 10/07/23 21:02 Dose: 20 unit Insulin Human Lispro (Insulin Lispro 100 Unit/Ml 3 Ml Vial) 0 unit SUBCUT QIDACHS [facility]; Protocol Last Admin: 10/07/23 21:02 Dose: 2 unit Lamotrigine (Lamotrigine 25 Mg Tablet) 50 mg PO BEDTIME [facility] Last Admin: 10/07/23 20:44 Dose: 50 mg Levothyroxine Sodium (Levothyroxine Sodium 200 Mcg Tablet) 200 mcg PO DAILY [facility] Last Admin: 10/07/23 09:00 Dose: 200 mcg Magnesium Hydroxide (Milk Of Magnesia 30 Ml Oral.Susp) 30 ml PO DAILY PRN PRN Reason: Constipation Memantine (Memantine Hcl 5 Mg Tablet) 5 mg PO BID [facility] Last Admin: 10/07/23 20:44 Dose: 5 mg Metformin HCl (Metformin Hcl Er 500 Mg Tab.Er.24h) 1,000 mg PO DAILY@1700 [facility] Last Admin: 10/07/23 17:58 Dose: 1,000 mg Modafinil (Modafinil 100 Mg Tablet) 50 mg PO DAILY [facility] Last Admin: 10/07/23 08:59 Dose: 50 mg Nicotine Polacrilex (Nicotine Polacrilex 2 Mg Gum) 4 mg BUCCAL Q2H PRN PRN Reason: Nicotine Cravings Sertraline HCl (Sertraline Hcl 100 Mg Tablet) 100 mg PO DAILY [facility] Last Admin: 10/07/23 08:59 Dose: 100 mg Trazodone HCl (Trazodone Hcl 50 Mg Tablet) 50 mg PO BEDTIME MRX1 PRN PRN Reason: Insomnia Last Admin: 10/05/23 21:46 Dose: 50 mg Allergies Allergies Allergy/AdvReac Type Severity Reaction Status Date / Time amoxicillin [AMOXICILLIN] Allergy Mild VOMITING/ABD Verified 09/10/23 19:44 PAIN Assessment & Plan Assessment & Plan (1) Schizoaffective disorder: Status: Acute Code(s): F25.9 - Schizoaffective disorder, unspecified (2) Hypothyroidism: Status: Acute Code(s): E03.9 - Hypothyroidism, unspecified (3) Type 2 diabetes mellitus: Status: Acute Code(s): E11.9 - Type 2 diabetes mellitus without complications Plan Patient is a 58 year old male with hx of Schizoaffective d/o and hypothyroid disorder/thyroid coma, stroke and brain aneurysm, who was brought to [facility] [place] [facility] on a Section 12 d/t disorganized behavior, concern for his memory impairment, medications noncompliance and poor ADLs. Plan: CV 15 minute safety checks Continue home medications: Haldol 10mg PO daily Synthroid 200mcg PO daily Obtain labs; A1C/POCs Obtain collateral from sister Obtain records from last hospitalization. MOCA Referral for DMH services if patient is agreeable. encourage medication compliance;consider VARGAS discharge planning 09/11: Elevated fasting blood sugar elevated hemoglobin A1c 9.2 med consult placed put in point of care needed will start metformin Would benefit from clarity over recent hospitalization what this were done details regarding treatment continue Haldol unclear if patient has Healthcare proxy his [place] was low slowed cognition with poor details in depth at times during blankly regarding making judgments Unclear if any of this relates to past coma or 2 hypothyroidism. He does seem more impaired than when last seen unclear when last imaging was. Continue Haldol sitter neuro indira involvement regarding diagnostic picture. Patient does remain paranoid blunted suspicious apathetic. He might benefit from longer-term placement if available and appropriate at a later time involved DMH involvement would be quite helpful 09/12: cont haldol get records ? hcp ? start antidep unclear hx 09/13: Keeping to self. More talkative today. Pt concerned he will be transferred to [facility]. Pt stated, The paper I signed yesterday. Are you going to send me back to the last hospital? That place was horrible . Pt was educated he signed a release of information with Dr. Gonzalez to obtain records from [facility]. Pt was given a copy of the release he signed. Despite this, pt continues to be anxious about being transferred. Pt denies SI/HI/VH/AH. 09/14: Keeping to self. active on unit. showered. Pt reports feeling alright today; pt reports he is worried about where I'm going to go . Pt continues concerned he will be transferred to [facility]. Pt denies SI/HI/VH/AH. 09/15:Pt reports feeling alright today; pt continues to report he is worried about where I'm going to go . Responding with brief responses. Guarded. Observed standing in one place for a long period of time. Appears confused. Pt denies SI/HI/VH/AH. T/W spoke to patient's sister, Ros, with patients verbal consent. Ros reports concerns regarding patients ability to make decisions regarding his mental and physical health. She plans on contacting legal advice on obtaining guardianship of patient. 09/16:Patient's presents similar to yesterday's presentation. Responding with brief responses. Guarded. Observed standing in one place for a long period of time, when asked what he is doing, pt stated, I don't know . Pt reports he plans on contacting his sister today and try to convince her for me to stay there . Pt denies SI/HI/VH/AH. Continue current tx plan. 09/17: brief responses. Guarded. 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 Pt denies SI/HI/VH/AH. T/W and Dr. Gonzalez spoke to patient's sister, Ros. Ros stated being [place] HCP and plans on finding document. She plans on coming to the hospital on Saturday to be present for [facility] intake. 09/22/2023: No changes 09/23/2023 Patient flat apathetic difficult insight and judgment his sister is healthcare proxy if needed patient is accepting medical treatment Referral to [facility] 09/24/23 Considers starting Haldol Decanoate patient is agreeable superficially difficulty with exec fx was seen [facility] 09/25/23 Pt seen in f/u mood flat dysphoric difficulty engaging in conversation preoccupied with thought he wont be living with family thing slowed apathetic no clear response with namenda ? some improvement inc lamictal start low dose sertraline inc lamictal ck tsh 09/26/2023 Start Abilify as augmentation with Haldol see if can be more stimulating regarding depressed mood apathetic limited engagement sertraline 50 mg Lamictal 25 b.i.d. referral to [facility] which would have structure unclear if patient can engage with this he remains quite depressed has delusional beliefs regarding housing and that things have been done he has repeatedly tried to reach out to his sister denies active SI needs much help dressing talking with others encouragement to eat severe thought blocking Abilify might be more stimulating than Haldol which can be more dulling 09/27/23 Abilify started sertraline Lamictal [facility] encourage reality orientation denies active SI 09/27: Continue current regimen and plans 09/28: Continue current regimen and plans. 09/30/2023 Referral to [facility] increase Abilify to 5 mg daily eventually try and taper Haldol sertraline 50 mg daily 10/01/2023 Increase Abilify to 10 mg lower Haldol to 7 mg continue sertraline and Lamictal 10/02/2023 Abilify increased to 10 mg continue to taper Haldol sertraline 100 mg Lamictal increased to 75 mg patient apathetic withdrawn difficulty with placement some paranoia continues difficulty with decision making at times. Not physically aggressive internally preoccupied seems somewhat improved with Abilify sertraline Continue discharge planning 10/03/2023 Patient somewhat blunted flat slowed thinking during the day times staring. Change Abilify to 10 mg at bedtime. Scheduled Haldol will lowered to 2.5 mg Continue sertraline 100 mg Namenda 5 b.i.d. 10/04/2023 . Haldol discontinued modafinil low-dose monitor for psychosis or agitation continue discharge planning 10/07/2023 May need to firm healthcare proxy calls have been placed to sister to try to help in discharge planning. Referrals made. Patient cooperative with care Patient educated on: medication risk/benefits, therapeutic strategies and medical condition Informed Consent: further education needed Reason for continued inpatient stay Substantial Risk for: inability to function, rapid decompensation and med/psych decompensation Time Spent With Patient Time: Total time managing care of this patient today ____ minutes.
[2023-10-08 08:00] VITALS: BP 121/64; PULSE 84; RESP 16; TEMP 36.4; O2SAT 96
[2023-10-08] MEDS: modafiniL 100 MG TABLET 50 MG PO (08:56)
[2023-10-08] MEDS: Memantine HCl 5 MG TABLET PO ×2 (08:57→22:02)
[2023-10-08] MEDS: Levothyroxine Sodium 200 MCG TABLET PO (08:57)
[2023-10-08] MEDS: Sertraline HCL 100 MG TABLET PO (08:57)
[2023-10-08 09:24] LABS: Glucose, Whole Blood 135 mg/dL (60-115)
[2023-10-08 13:10] LABS: Glucose, Whole Blood 213 mg/dL (60-115)
[2023-10-08] MEDS: Insulin Lispro 100 UNIT/ML 3 ML VIAL SUBCUT ×2 (13:12→22:06)
--- NOTE | 2023-10-08 13:14 | P.PNPSI_ITS ---
Subjective Subjective Date of Service: 10/08/23 Reason For Visit: paranoia cognitive impairment Subjective Notes: Conditional Voluntary Interim History: Patient tolerating Abilify well change to long-acting more social less sedated no noted active hallucinations has tolerated modafinil no rigidity noted. See social work note for discharge planning referrals made Medication Compliance: Yes Diagnostics Vital Signs (24Hr): Vital Signs - 24 hr 10/07/23 20:00 10/08/23 08:00 Temperature 98.8 F 97.5 F Pulse Rate 92 84 Respiratory Rate 18 16 Blood Pressure 119/58 L 121/64 Pulse Oximetry 97 96 Oxygen Delivery Method Room Air Room Air BMI result Body Mass Index 31.5 Labs 09/10/23 20:00 10/04/23 14:35 Labs: Laboratory Results - last 48 hr 10/06/23 10/06/23 10/07/23 17:36 20:46 08:21 POC Glucose 189 H 149 H 117 H 10/07/23 10/07/23 10/07/23 12:57 17:50 20:55 POC Glucose 141 H 180 H 184 H 10/08/23 10/08/23 09:20 13:05 POC Glucose 135 H 213 H Imaging Radiology Impressions: ITS Impressions Brain MRI 09/19/23 20:33 IMPRESSION: 1. No demonstrated acute intracranial abnormalities. 2. Chronic mild to moderate nonspecific white matter changes, most notably in the deep white matter of the right frontal lobe. Mild to moderate generalized cerebral volume loss. Medications Medications Current Medications Acetaminophen (Acetaminophen 325 Mg Tablet) 650 mg PO Q6H PRN PRN Reason: Headache/Pain Mild Scale (1-3) Last Admin: 09/20/23 15:15 Dose: 650 mg Al Hydroxide/Mg Hydroxide (Magnesium Hydrox/Alum Hydrox 30 Ml Oral.Susp) 30 ml PO Q6H PRN PRN Reason: Heartburn/Nausea Aripiprazole (Aripiprazole 10 Mg Tablet) 10 mg PO BEDTIME [facility] Last Admin: 10/07/23 20:44 Dose: 10 mg Benztropine Mesylate (Benztropine Mesylate 0.5 Mg Tablet) 0.5 mg PO TID PRN PRN Reason: Extrapyramidal Effects Glucose (Glucose Gel 15 Gm Gel..Gram.) 15 gm PO Q15M PRN; Protocol PRN Reason: per Hypoglycemia Standing Ord. Hydroxyzine HCl (Hydroxyzine Hcl 25 Mg Tablet) 25 mg PO Q6H PRN PRN Reason: Anxiety Last Admin: 09/28/23 08:31 Dose: 25 mg Dextrose (D10) 250 mls @ 750 mls/hr IV Q15M PRN; Protocol PRN Reason: per Hypoglycemia Standing Ord. Insulin Glargine (Insulin Glargine,Hum.Rec.Anlog 100 Unit/Ml 10 Ml Vial) 20 unit SUBCUT BEDTIME [facility] Last Admin: 10/07/23 21:02 Dose: 20 unit Insulin Human Lispro (Insulin Lispro 100 Unit/Ml 3 Ml Vial) 0 unit SUBCUT QIDACHS [facility]; Protocol Last Admin: 10/08/23 13:12 Dose: 4 unit Lamotrigine (Lamotrigine 25 Mg Tablet) 75 mg PO BEDTIME [facility] Levothyroxine Sodium (Levothyroxine Sodium 200 Mcg Tablet) 200 mcg PO DAILY [facility] Last Admin: 10/08/23 08:57 Dose: 200 mcg Magnesium Hydroxide (Milk Of Magnesia 30 Ml Oral.Susp) 30 ml PO DAILY PRN PRN Reason: Constipation Memantine (Memantine Hcl 5 Mg Tablet) 5 mg PO BID [facility] Last Admin: 10/08/23 08:57 Dose: 5 mg Metformin HCl (Metformin Hcl Er 500 Mg Tab.Er.24h) 1,000 mg PO DAILY@1700 [facility] Last Admin: 10/07/23 17:58 Dose: 1,000 mg Modafinil (Modafinil 100 Mg Tablet) 50 mg PO DAILY [facility] Last Admin: 10/08/23 08:56 Dose: 50 mg Nicotine Polacrilex (Nicotine Polacrilex 2 Mg Gum) 4 mg BUCCAL Q2H PRN PRN Reason: Nicotine Cravings Sertraline HCl (Sertraline Hcl 100 Mg Tablet) 100 mg PO DAILY [facility] Last Admin: 10/08/23 08:57 Dose: 100 mg Trazodone HCl (Trazodone Hcl 50 Mg Tablet) 50 mg PO BEDTIME MRX1 PRN PRN Reason: Insomnia Last Admin: 10/05/23 21:46 Dose: 50 mg Allergies Allergies Allergy/AdvReac Type Severity Reaction Status Date / Time amoxicillin [AMOXICILLIN] Allergy Mild VOMITING/ABD Verified 09/10/23 19:44 PAIN Assessment & Plan Assessment & Plan (1) Schizoaffective disorder: Status: Acute Code(s): F25.9 - Schizoaffective disorder, unspecified (2) Hypothyroidism: Status: Acute Code(s): E03.9 - Hypothyroidism, unspecified (3) Type 2 diabetes mellitus: Status: Acute Code(s): E11.9 - Type 2 diabetes mellitus without complications Plan Patient is a 58 year old male with hx of Schizoaffective d/o and hypothyroid disorder/thyroid coma, stroke and brain aneurysm, who was brought to [facility] on a Section 12 d/t disorganized behavior, concern for his memory impairment, medications noncompliance and poor ADLs. Plan: CV 15 minute safety checks Continue home medications: Haldol 10mg PO daily Synthroid 200mcg PO daily Obtain labs; A1C/POCs Obtain collateral from sister Obtain records from last hospitalization. MOCA Referral for DMH services if patient is agreeable. encourage medication compliance;consider VARGAS discharge planning 09/11: Elevated fasting blood sugar elevated hemoglobin A1c 9.2 med consult placed put in point of care needed will start metformin Would benefit from clarity over recent hospitalization what this were done details regarding treatment continue Haldol unclear if patient has Healthcare proxy his [place] was low slowed cognition with poor details in depth at times during blankly regarding making judgments Unclear if any of this relates to past coma or 2 hypothyroidism. He does seem more impaired than when last seen unclear when last imaging was. Continue Haldol sitter neuro indira involvement regarding diagnostic picture. Patient does remain paranoid blunted suspicious apathetic. He might benefit from longer- term placement if available and appropriate at a later time involved DMH involvement would be quite helpful 09/12: cont haldol get records ? hcp ? start antidep unclear hx 09/13: Keeping to self. More talkative today. Pt concerned he will be transferred to [facility]. Pt stated, The paper I signed yesterday. Are you going to send me back to the last hospital? That place was horrible . Pt was educated he signed a release of information with Dr. Gonzalez to obtain records from [facility]. Pt was given a copy of the release he signed. Despite this, pt continues to be anxious about being transferred. Pt denies SI/HI/VH/AH. 09/14: Keeping to self. active on unit. showered. Pt reports feeling alright today; pt reports he is worried about where I'm going to go . Pt continues concerned he will be transferred to [facility]. Pt denies SI/HI/VH/AH. 09/15:Pt reports feeling alright today; pt continues to report he is worried about where I'm going to go . Responding with brief responses. Guarded. Observed standing in one place for a long period of time. Appears confused. Pt denies SI/HI/VH/AH. T/W spoke to patient's sister, Ros, with patients verbal consent. Ros reports concerns regarding patients ability to make decisions regarding his mental and physical health. She plans on contacting legal advice on obtaining guardianship of patient. 09/16:Patient's presents similar to yesterday's presentation. Responding with brief responses. Guarded. Observed standing in one place for a long period of time, when asked what he is doing, pt stated, I don't know . Pt reports he plans on contacting his sister today and try to convince her for me to stay there . Pt denies SI/HI/VH/AH. Continue current tx plan. 09/17: brief responses. Guarded. 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 Pt denies SI/HI/VH/AH. T/W and Dr. Gonzalez spoke to patient's sister, Ros. Ros stated being [facility] and plans on finding document. She plans on coming to the hospital on Saturday to be present for [facility] intake. 09/22/2023: No changes 09/23/2023 Patient flat apathetic difficult insight and judgment his sister is healthcare proxy if needed patient is accepting medical treatment Referral to [facility] 09/24/23 Considers starting Haldol Decanoate patient is agreeable superficially difficulty with exec fx was seen [facility] 09/25/23 Pt seen in f/u mood flat dysphoric difficulty engaging in conversation preoccupied with thought he wont be living with family thing slowed apathetic no clear response with namenda ? some improvement inc lamictal start low dose sertraline inc lamictal ck tsh 09/26/2023 Start Abilify as augmentation with Haldol see if can be more stimulating regarding depressed mood apathetic limited engagement sertraline 50 mg Lamictal 25 b.i.d. referral to [facility] which would have structure unclear if patient can engage with this he remains quite depressed has delusional beliefs regarding housing and that things have been done he has repeatedly tried to reach out to his sister denies active SI needs much help dressing talking with others encouragement to eat severe thought blocking Abilify might be more stimulating than Haldol which can be more dulling 09/27/23 Abilify started sertraline Lamictal encouraged step-down to [facility] encourage reality orientation denies active SI 09/27: Continue current regimen and plans 09/28: Continue current regimen and plans. 09/30/2023 Referral to [facility] increase Abilify to 5 mg daily eventually try and taper Haldol sertraline 50 mg daily 10/01/2023 Increase Abilify to 10 mg lower Haldol to 7 mg continue sertraline and Lamictal 10/02/2023 Abilify increased to 10 mg continue to taper Haldol sertraline 100 mg Lamictal increased to 75 mg patient apathetic withdrawn difficulty with placement some paranoia continues difficulty with decision making at times. Not physically aggressive internally preoccupied seems somewhat improved with Abilify sertraline Continue discharge planning 10/03/2023 Patient somewhat blunted flat slowed thinking during the day times staring. Change Abilify to 10 mg at bedtime. Scheduled Haldol will lowered to 2.5 mg Continue sertraline 100 mg Namenda 5 b.i.d. 10/04/2023 . Haldol discontinued modafinil low-dose monitor for psychosis or agitation continue discharge planning 10/07/2023 May need to firm healthcare proxy calls have been placed to sister to try to help in discharge planning. Referrals made. Patient cooperative with care 10/08/2023 Pharmacy ordering Abilify maintain a increase modafinil 100 mg patient remains flat passive depressed some improvement noted no current paranoia noted continue discharge planning no current safe discharge plan Reason for continued inpatient stay Substantial Risk for: inability to function and rapid decompensation Time Spent With Patient Time: Total time managing care of this patient today ____ minutes.
[2023-10-08 17:50] LABS: Glucose, Whole Blood 131 mg/dL (60-115)
[2023-10-08] MEDS: metFORMIN HCl ER 500 MG TAB.ER.24H 1000 MG PO (17:57)
[2023-10-08 20:45] VITALS: BP 129/88; PULSE 81; RESP 14; TEMP 36.8; O2SAT 97
[2023-10-08 20:51] LABS: Glucose, Whole Blood 203 mg/dL (60-115)
[2023-10-08] MEDS: ARIPiprazole 10 MG TABLET PO (22:02)
[2023-10-08] MEDS: traZODone HCL 50 MG TABLET PO (22:02)
[2023-10-08] MEDS: lamoTRIgine 25 MG TABLET 75 MG PO (22:03)
[2023-10-08] MEDS: Insulin Glargine,Hum.rec.anlog 100 UNIT/ML 10 ML VIAL 20 UNIT SUBCUT (22:05)
[2023-10-09 08:27] LABS: Glucose, Whole Blood 116 mg/dL (60-115)
[2023-10-09 08:56] VITALS: BP 127/68; PULSE 85; RESP 16; TEMP 36.8; O2SAT 97
[2023-10-09] MEDS: Levothyroxine Sodium 200 MCG TABLET PO (08:57)
[2023-10-09] MEDS: modafiniL 100 MG TABLET PO (08:57)
[2023-10-09] MEDS: Memantine HCl 5 MG TABLET PO ×2 (08:57→22:04)
[2023-10-09] MEDS: Sertraline HCL 100 MG TABLET PO (08:57)
[2023-10-09 12:37] LABS: Glucose, Whole Blood 157 mg/dL (60-115)
[2023-10-09] MEDS: Insulin Lispro 100 UNIT/ML 3 ML VIAL SUBCUT ×2 (12:38→17:43)
--- NOTE | 2023-10-09 14:21 | PC.NURSE ---
At approximately 1400, Wilmer was in an OT group with another patient who became emotional/tearful over the topic. Following this, the other patient asked to have time alone with the OT. However, Wilmer would not leave the room to give the other patient space. He displayed thought blocking and was very limited in his responses and reasons for not leaving the room. Pt acknowleged he was worried about the other patient. When the other patient and the OT left to go to another room, he then followed them into the sensory room and also would not leave. Pt was again extremely difficult to redirect. Per other patient, Wilmer has mentioned that he reminds him of his son. Pt was eventually convinced to stand outside door. notified.
[2023-10-09 17:40] LABS: Glucose, Whole Blood 204 mg/dL (60-115)
[2023-10-09] MEDS: metFORMIN HCl ER 500 MG TAB.ER.24H 1000 MG PO (17:43)
[2023-10-09 20:15] VITALS: BP 126/75; PULSE 90; RESP 16; TEMP 36.8; O2SAT 98
[2023-10-09 22:01] LABS: Glucose, Whole Blood 213 mg/dL (60-115)
[2023-10-09] MEDS: ARIPiprazole 10 MG TABLET PO (22:04)
[2023-10-09] MEDS: lamoTRIgine 25 MG TABLET 75 MG PO (22:04)
[2023-10-09] MEDS: Insulin Glargine,Hum.rec.anlog 100 UNIT/ML 10 ML VIAL 20 UNIT SUBCUT (22:07)
--- NOTE | 2023-10-09 22:43 | HO.PSYCHPN ---
Subjective Subjective Date of Service: 10/09/23 Reason For Visit: paranoia cognitive impairment Subjective Notes: Conditional Voluntary Interim History: The pt was increasingly upset over a patient on the unit who had been upset earlier in the day in the patient felt set wanted to the other patient but had a difficult time being redirected. He seemed to have a difficult time processing information at that time was quite anxious ruminating agitated depressed. He denied hallucinations Medication Compliance: Yes Mental Status Exam Mental Status Exam Narrative: The patient is dysphoric sad looking blunted poverty of content limited engagement slowed mentation. Decrease in paranoid concerns slowed mentation continues At times some level of suspiciousness no overt aggression or marked paranoia . He could not explain his actions earlier in the day when he obsessional followed another patient who had appeared to be upset and when staff attempted to redirect him he was just standing there mute difficulty to redirect could not explain his behavior no SI HI actively difficulty with decision-making impaired insight judgment Diagnostics Vital Signs (24Hr): Vital Signs - 24 hr 10/09/23 08:56 10/09/23 20:15 Temperature 98.2 F 98.3 F Pulse Rate 85 90 Respiratory Rate 16 16 Blood Pressure 127/68 126/75 Pulse Oximetry 97 98 Oxygen Delivery Method Room Air Room Air BMI result Body Mass Index 31.5 Labs 09/10/23 20:00 10/04/23 14:35 Labs: Laboratory Results - last 48 hr 10/08/23 10/08/23 10/08/23 09:20 13:05 17:45 POC Glucose 135 H 213 H 131 H 10/08/23 10/09/23 10/09/23 20:34 08:19 12:34 POC Glucose 203 H 116 H 157 H 10/09/23 10/09/23 17:35 21:56 POC Glucose 204 H 213 H Imaging Radiology Impressions: ITS Impressions Brain MRI 09/19/23 20:33 IMPRESSION: 1. No demonstrated acute intracranial abnormalities. 2. Chronic mild to moderate nonspecific white matter changes, most notably in the deep white matter of the right frontal lobe. Mild to moderate generalized cerebral volume loss. Medications Medications Current Medications Acetaminophen (Acetaminophen 325 Mg Tablet) 650 mg PO Q6H PRN PRN Reason: Headache/Pain Mild Scale (1-3) Last Admin: 09/20/23 15:15 Dose: 650 mg Al Hydroxide/Mg Hydroxide (Magnesium Hydrox/Alum Hydrox 30 Ml Oral.Susp) 30 ml PO Q6H PRN PRN Reason: Heartburn/Nausea Aripiprazole (Aripiprazole 10 Mg Tablet) 10 mg PO BEDTIME [facility] Last Admin: 10/09/23 22:04 Dose: 10 mg Benztropine Mesylate (Benztropine Mesylate 0.5 Mg Tablet) 0.5 mg PO TID PRN PRN Reason: Extrapyramidal Effects Glucose (Glucose Gel 15 Gm Gel..Gram.) 15 gm PO Q15M PRN; Protocol PRN Reason: per Hypoglycemia Standing Ord. Hydroxyzine HCl (Hydroxyzine Hcl 25 Mg Tablet) 25 mg PO Q6H PRN PRN Reason: Anxiety Last Admin: 09/28/23 08:31 Dose: 25 mg Dextrose (D10) 250 mls @ 750 mls/hr IV Q15M PRN; Protocol PRN Reason: per Hypoglycemia Standing Ord. Insulin Glargine (Insulin Glargine,Hum.Rec.Anlog 100 Unit/Ml 10 Ml Vial) 20 unit SUBCUT BEDTIME [facility] Last Admin: 10/09/23 22:07 Dose: 20 unit Insulin Human Lispro (Insulin Lispro 100 Unit/Ml 3 Ml Vial) 0 unit SUBCUT QIDACHS [facility]; Protocol Last Admin: 10/09/23 22:08 Dose: Not Given Lamotrigine (Lamotrigine 25 Mg Tablet) 75 mg PO BEDTIME [facility] Last Admin: 10/09/23 22:04 Dose: 75 mg Levothyroxine Sodium (Levothyroxine Sodium 200 Mcg Tablet) 200 mcg PO DAILY [facility] Last Admin: 10/09/23 08:57 Dose: 200 mcg Magnesium Hydroxide (Milk Of Magnesia 30 Ml Oral.Susp) 30 ml PO DAILY PRN PRN Reason: Constipation Memantine (Memantine Hcl 5 Mg Tablet) 5 mg PO BID [facility] Last Admin: 10/09/23 22:04 Dose: 5 mg Metformin HCl (Metformin Hcl Er 500 Mg Tab.Er.24h) 1,000 mg PO DAILY@1700 [facility] Last Admin: 10/09/23 17:43 Dose: 1,000 mg Nicotine Polacrilex (Nicotine Polacrilex 2 Mg Gum) 4 mg BUCCAL Q2H PRN PRN Reason: Nicotine Cravings Sertraline HCl (Sertraline Hcl 100 Mg Tablet) 100 mg PO DAILY [facility] Last Admin: 10/09/23 08:57 Dose: 100 mg Trazodone HCl (Trazodone Hcl 50 Mg Tablet) 50 mg PO BEDTIME MRX1 PRN PRN Reason: Insomnia Last Admin: 10/08/23 22:02 Dose: 50 mg Allergies Allergies Allergy/AdvReac Type Severity Reaction Status Date / Time amoxicillin [AMOXICILLIN] Allergy Mild VOMITING/ABD Verified 09/10/23 19:44 PAIN Assessment & Plan Assessment & Plan (1) Schizoaffective disorder: Status: Acute Code(s): F25.9 - Schizoaffective disorder, unspecified (2) Hypothyroidism: Status: Acute Code(s): E03.9 - Hypothyroidism, unspecified (3) Type 2 diabetes mellitus: Status: Acute Code(s): E11.9 - Type 2 diabetes mellitus without complications Plan Patient is a 58 year old male with hx of Schizoaffective d/o and hypothyroid disorder/thyroid coma, stroke and brain aneurysm, who was brought to [facility] on a Section 12 d/t disorganized behavior, concern for his memory impairment, medications noncompliance and poor ADLs. Plan: CV 15 minute safety checks Continue home medications: Haldol 10mg PO daily Synthroid 200mcg PO daily Obtain labs; A1C/POCs Obtain collateral from sister Obtain records from last hospitalization. MOCA Referral for DMH services if patient is agreeable. encourage medication compliance;consider VARGAS discharge planning 09/11: Elevated fasting blood sugar elevated hemoglobin A1c 9.2 med consult placed put in point of care needed will start metformin Would benefit from clarity over recent hospitalization what this were done details regarding treatment continue Haldol unclear if patient has Healthcare proxy his [place] was low slowed cognition with poor details in depth at times during blankly regarding making judgments Unclear if any of this relates to past coma or 2 hypothyroidism. He does seem more impaired than when last seen unclear when last imaging was. Continue Haldol sitter neuro indira involvement regarding diagnostic picture. Patient does remain paranoid blunted suspicious apathetic. He might benefit from longer-term placement if available and appropriate at a later time involved DMH involvement would be quite helpful 09/12: cont haldol get records ? hcp ? start antidep unclear hx 09/13: Keeping to self. More talkative today. Pt concerned he will be transferred to [facility]. Pt stated, The paper I signed yesterday. Are you going to send me back to the last hospital? That place was horrible . Pt was educated he signed a release of information with Dr. Gonzalez to obtain records from [facility]. Pt was given a copy of the release he signed. Despite this, pt continues to be anxious about being transferred. Pt denies SI/HI/VH/AH. 09/14: Keeping to self. active on unit. showered. Pt reports feeling alright today; pt reports he is worried about where I'm going to go . Pt continues concerned he will be transferred to [facility]. Pt denies SI/HI/VH/AH. 09/15:Pt reports feeling alright today; pt continues to report he is worried about where I'm going to go . Responding with brief responses. Guarded. Observed standing in one place for a long period of time. Appears confused. Pt denies SI/HI/VH/AH. T/W spoke to patient's sister, Ros, with patients verbal consent. Ros reports concerns regarding patients ability to make decisions regarding his mental and physical health. She plans on contacting legal advice on obtaining guardianship of patient. 09/16:Patient's presents similar to yesterday's presentation. Responding with brief responses. Guarded. Observed standing in one place for a long period of time, when asked what he is doing, pt stated, I don't know . Pt reports he plans on contacting his sister today and try to convince her for me to stay there . Pt denies SI/HI/VH/AH. Continue current tx plan. 09/17: brief responses. Guarded. 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 Pt denies SI/HI/VH/AH. T/W and Dr. Gonzalez spoke to patient's sister, Ros. Ros stated being [facility] and plans on finding document. She plans on coming to the hospital on Saturday to be present for . [facility] intake. 09/22/2023: No changes 09/23/2023 Patient flat apathetic difficult insight and judgment his sister is healthcare proxy if needed patient is accepting medical treatment Referral to [facility] 09/24/23 Considers starting Haldol Decanoate patient is agreeable superficially difficulty with exec fx was seen [facility] 09/25/23 Pt seen in f/u mood flat dysphoric difficulty engaging in conversation preoccupied with thought he wont be living with family thing slowed apathetic no clear response with namenda ? some improvement inc lamictal start low dose sertraline inc lamictal ck tsh 09/26/2023 Start Abilify as augmentation with Haldol see if can be more stimulating regarding depressed mood apathetic limited engagement sertraline 50 mg Lamictal 25 b.i.d. referral to [facility] which would have structure unclear if patient can engage with this he remains quite depressed has delusional beliefs regarding housing and that things have been done he has repeatedly tried to reach out to his sister denies active SI needs much help dressing talking with others encouragement to eat severe thought blocking Abilify might be more stimulating than Haldol which can be more dulling 09/27/23 Abilify started sertraline Lamictal encouraged step-down to [facility] encourage reality orientation denies active SI 09/27: Continue current regimen and plans 09/28: Continue current regimen and plans. 09/30/2023 [address]erral to [facility] increase Abilify to 5 mg daily eventually try and taper Haldol sertraline 50 mg daily 10/01/2023 Increase Abilify to 10 mg lower Haldol to 7 mg continue sertraline and Lamictal 10/02/2023 Abilify increased to 10 mg continue to taper Haldol sertraline 100 mg Lamictal increased to 75 mg patient apathetic withdrawn difficulty with placement some paranoia continues difficulty with decision making at times. Not physically aggressive internally preoccupied seems somewhat improved with Abilify sertraline Continue discharge planning 10/03/2023 Patient somewhat blunted flat slowed thinking during the day times staring. Change Abilify to 10 mg at bedtime. Scheduled Haldol will lowered to 2.5 mg Continue sertraline 100 mg Namenda 5 b.i.d. 10/04/2023 . Haldol discontinued modafinil low-dose monitor for psychosis or agitation continue discharge planning 10/07/2023 May need to firm healthcare proxy calls have been placed to sister to try to help in discharge planning. Referrals made. Patient cooperative with care 10/08/2023 Pharmacy ordering Abilify maintain a increase modafinil 100 mg patient remains flat passive depressed some improvement noted no current paranoia noted continue discharge planning no current safe discharge plan 10/09/2023 Increase Lamictal 100 mg Abilify Maintena 400 mg hold modafinil unclear if was overly stimulating patient continues to present internally preoccupied. Reason for continued inpatient stay Substantial Risk for: inability to function, rapid decompensation and med/psych decompensation Time Spent With Patient Time: Total time managing care of this patient today ____ minutes.
[2023-10-09] MEDS: traZODone HCL 50 MG TABLET PO (22:49)
[2023-10-09] MEDS: hydrOXYzine HCL 25 MG TABLET PO (22:49)
[2023-10-10 07:00] VITALS: BMI 31.4
[2023-10-10 08:48] LABS: Glucose, Whole Blood 120 mg/dL (60-115)
[2023-10-10] MEDS: Memantine HCl 5 MG TABLET PO ×2 (09:03→22:03)
[2023-10-10] MEDS: Levothyroxine Sodium 200 MCG TABLET PO (09:03)
[2023-10-10] MEDS: Sertraline HCL 100 MG TABLET PO (09:03)
--- NOTE | 2023-10-10 09:58 | P.PNPSI_ITS ---
Subjective Subjective Date of Service: 10/10/23 Reason For Visit: paranoia cognitive impairment Subjective Notes: Conditional Voluntary Interim History: Patient seen follow-up patient has mildly less hesitancy not overly agitated here pertinent extensively have significant difficulty 2nd having difficulty participating planning for discharge. Healthcare proxy invoked Mental Status Exam Mental Status Exam Narrative: The patient is dysphoric sad looking blunted poverty of content limited engagement slowed mentation. slowed mentation continues difficulty with discharge planning suspiciousness at signing releases At times some level of suspiciousness no overt aggression or marked paranoia . Poverty of content no SI HI actively difficulty with decision-making impaired insight judgment Diagnostics Vital Signs (24Hr): Vital Signs - 24 hr 10/09/23 20:15 Temperature 98.3 F Pulse Rate 90 Respiratory Rate 16 Blood Pressure 126/75 Pulse Oximetry 98 Oxygen Delivery Method Room Air BMI result Body Mass Index 31.4 Labs 09/10/23 20:00 10/04/23 14:35 Labs: Laboratory Results - last 48 hr 10/08/23 10/08/23 10/08/23 13:05 17:45 20:34 POC Glucose 213 H 131 H 203 H 10/09/23 10/09/23 10/09/23 08:19 12:34 17:35 POC Glucose 116 H 157 H 204 H 10/09/23 10/10/23 21:56 08:42 POC Glucose 213 H 120 H Imaging Radiology Impressions: ITS Impressions Brain MRI 09/19/23 20:33 IMPRESSION: 1. No demonstrated acute intracranial abnormalities. 2. Chronic mild to moderate nonspecific white matter changes, most notably in the deep white matter of the right frontal lobe. Mild to moderate generalized cerebral volume loss. Medications Medications Current Medications Acetaminophen (Acetaminophen 325 Mg Tablet) 650 mg PO Q6H PRN PRN Reason: Headache/Pain Mild Scale (1-3) Last Admin: 09/20/23 15:15 Dose: 650 mg Al Hydroxide/Mg Hydroxide (Magnesium Hydrox/Alum Hydrox 30 Ml Oral.Susp) 30 ml PO Q6H PRN PRN Reason: Heartburn/Nausea Aripiprazole (Aripiprazole 10 Mg Tablet) 10 mg PO BEDTIME [facility] Last Admin: 10/09/23 22:04 Dose: 10 mg Benztropine Mesylate (Benztropine Mesylate 0.5 Mg Tablet) 0.5 mg PO TID PRN PRN Reason: Extrapyramidal Effects Glucose (Glucose Gel 15 Gm Gel..Gram.) 15 gm PO Q15M PRN; Protocol PRN Reason: per Hypoglycemia Standing Ord. Hydroxyzine HCl (Hydroxyzine Hcl 25 Mg Tablet) 25 mg PO Q6H PRN PRN Reason: Anxiety Last Admin: 10/09/23 22:49 Dose: 25 mg Dextrose (D10) 250 mls @ 750 mls/hr IV Q15M PRN; Protocol PRN Reason: per Hypoglycemia Standing Ord. Insulin Glargine (Insulin Glargine,Hum.Rec.Anlog 100 Unit/Ml 10 Ml Vial) 20 unit SUBCUT BEDTIME [facility] Last Admin: 10/09/23 22:07 Dose: 20 unit Insulin Human Lispro (Insulin Lispro 100 Unit/Ml 3 Ml Vial) 0 unit SUBCUT QIDACHS [facility]; Protocol Last Admin: 10/10/23 09:03 Dose: Not Given Lamotrigine (Lamotrigine 25 Mg Tablet) 75 mg PO BEDTIME [facility] Last Admin: 10/09/23 22:04 Dose: 75 mg Levothyroxine Sodium (Levothyroxine Sodium 200 Mcg Tablet) 200 mcg PO DAILY [facility] Last Admin: 10/10/23 09:03 Dose: 200 mcg Magnesium Hydroxide (Milk Of Magnesia 30 Ml Oral.Susp) 30 ml PO DAILY PRN PRN Reason: Constipation Memantine (Memantine Hcl 5 Mg Tablet) 5 mg PO BID [facility] Last Admin: 10/10/23 09:03 Dose: 5 mg Metformin HCl (Metformin Hcl Er 500 Mg Tab.Er.24h) 1,000 mg PO DAILY@1700 [facility] Last Admin: 10/09/23 17:43 Dose: 1,000 mg Nicotine Polacrilex (Nicotine Polacrilex 2 Mg Gum) 4 mg BUCCAL Q2H PRN PRN Reason: Nicotine Cravings Sertraline HCl (Sertraline Hcl 100 Mg Tablet) 100 mg PO DAILY [facility] Last Admin: 10/10/23 09:03 Dose: 100 mg Trazodone HCl (Trazodone Hcl 50 Mg Tablet) 50 mg PO BEDTIME MRX1 PRN PRN Reason: Insomnia Last Admin: 10/09/23 22:49 Dose: 50 mg Allergies Allergies Allergy/AdvReac Type Severity Reaction Status Date / Time amoxicillin [AMOXICILLIN] Allergy Mild VOMITING/ABD Verified 09/10/23 19:44 PAIN Assessment & Plan Assessment & Plan (1) Schizoaffective disorder: Status: Acute Code(s): F25.9 - Schizoaffective disorder, unspecified (2) Hypothyroidism: Status: Acute Code(s): E03.9 - Hypothyroidism, unspecified (3) Type 2 diabetes mellitus: Status: Acute Code(s): E11.9 - Type 2 diabetes mellitus without complications Plan Patient is a 58 year old male with hx of Schizoaffective d/o and hypothyroid disorder/thyroid coma, stroke and brain aneurysm, who was [place] [facility] 12 d/t disorganized behavior, concern for his memory impairment, medications noncompliance and poor ADLs. Plan: CV 15 minute safety checks Continue home medications: Haldol 10mg PO daily Synthroid 200mcg PO daily Obtain labs; A1C/POCs Obtain collateral from sister Obtain records from last hospitalization. MOCA Referral for DMH services if patient is agreeable. encourage medication compliance;consider VARGAS discharge planning 09/11: Elevated fasting blood sugar elevated hemoglobin A1c 9.2 med consult placed put in point of care needed will start metformin Would benefit from clarity over recent hospitalization what this were done details regarding treatment continue Haldol unclear if patient has Healthcare proxy his [place] was low slowed cognition with poor details in depth at times during blankly regarding making judgments Unclear if any of this relates to past coma or 2 hypothyroidism. He does seem more impaired than when last seen unclear when last imaging was. Continue Haldol sitter neuro indira involvement regarding diagnostic picture. Patient does remain paranoid blunted suspicious apathetic. He might benefit from longer- term placement if available and appropriate at a later time involved DMH involvement would be quite helpful 09/12: cont haldol get records ? hcp ? start antidep unclear hx 09/13: Keeping to self. More talkative today. Pt concerned he will be transferred to [facility]. Pt stated, The paper I signed yesterday. Are you going to send me back to the last hospital? That place was horrible . Pt was educated he signed a release of information with Dr. Gonzalez to obtain records from [facility]. Pt was given a copy of the release he signed. Despite this, pt continues to be anxious about being transferred. Pt denies SI/HI/VH/AH. 09/14: Keeping to self. active on unit. showered. Pt reports feeling alright today; pt reports he is worried about where I'm going to go . Pt continues concerned he will be transferred to [facility]. Pt denies SI/HI/VH/AH. 09/15:Pt reports feeling alright today; pt continues to report he is worried about where I'm going to go . Responding with brief responses. Guarded. Observed standing in one place for a long period of time. Appears confused. Pt denies SI/HI/VH/AH. T/W spoke to patient's sister, Ros, with patients verbal consent. Ros reports concerns regarding patients ability to make decisions regarding his mental and physical health. She plans on contacting legal advice on obtaining guardianship of patient. 09/16:Patient's presents similar to yesterday's presentation. Responding with brief responses. Guarded. Observed standing in one place for a long period of time, when asked what he is doing, pt stated, I don't know . Pt reports he plans on contacting his sister today and try to convince her for me to stay there . Pt denies SI/HI/VH/AH. Continue current tx plan. 09/17: brief responses. Guarded. 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 Pt denies SI/HI/VH/AH. T/W and Dr. Gonzalez spoke to patient's sister, Ros. Ros stated being [facility] HCP and plans on finding document. She plans on coming to the hospital on Saturday to be present for [facility] intake. 09/22/2023: No changes 09/23/2023 Patient flat apathetic difficult insight and judgment his sister is healthcare proxy if needed patient is accepting medical treatment Referral to [facility] 09/24/23 Considers starting Haldol Decanoate patient is agreeable superficially difficulty with exec fx was seen [facility] 09/25/23 Pt seen in f/u mood flat dysphoric difficulty engaging in conversation preoccupied with thought he wont be living with family thing slowed apathetic no clear response with namenda ? some improvement inc lamictal start low dose sertraline inc lamictal ck tsh 09/26/2023 Start Abilify as augmentation with Haldol see if can be more stimulating regarding depressed mood apathetic limited engagement sertraline 50 mg Lamictal 25 b.i.d. referral to [facility] which would have structure unclear if patient can engage with this he remains quite depressed has delusional beliefs regarding housing and that things have been done he has repeatedly tried to reach out to his sister denies active SI needs much help dressing talking with others encouragement to eat severe thought blocking Abilify might be more stimulating than Haldol which can be more dulling 09/27/23 Abilify started sertraline Lamictal encouraged step-down to [facility] encourage reality orientation denies active SI 09/27: Continue current regimen and plans 09/28: Continue current regimen and plans. 09/30/2023 Referral to [facility] increase Abilify to 5 mg daily eventually try and taper Haldol sertraline 50 mg daily 10/01/2023 Increase Abilify to 10 mg lower Haldol to 7 mg continue sertraline and Lamictal 10/02/2023 Abilify increased to 10 mg continue to taper Haldol sertraline 100 mg Lamictal increased to 75 mg patient apathetic withdrawn difficulty with placement some paranoia continues difficulty with decision making at times. Not physically aggressive internally preoccupied seems somewhat improved with Abilify sertraline Continue discharge planning 10/03/2023 Patient somewhat blunted flat slowed thinking during the day times staring. Change Abilify to 10 mg at bedtime. Scheduled Haldol will lowered to 2.5 mg Continue sertraline 100 mg Namenda 5 b.i.d. 10/04/2023 . Haldol discontinued modafinil low-dose monitor for psychosis or agitation continue discharge planning 10/07/2023 May need to firm healthcare proxy calls have been placed to sister to try to help in discharge planning. Referrals made. Patient cooperative with care 10/08/2023 Pharmacy ordering Abilify maintain a increase modafinil 100 mg patient remains flat passive depressed some improvement noted no current paranoia noted continue discharge planning no current safe discharge plan 10/09/2023 Increase Lamictal 100 mg Abilify Maintena 400 mg hold modafinil unclear if was overly stimulating patient continues to present internally preoccupied. 10/10/23 Healthcare proxy invoked discharge planning continue Lamictal Abilify pending maintain a Reason for continued inpatient stay Substantial Risk for: inability to function, rapid decompensation and med/psych decompensation Time Spent With Patient Time: Total time managing care of this patient today ____ minutes.
[2023-10-10 13:11] LABS: Glucose, Whole Blood 102 mg/dL (60-115)
[2023-10-10 18:01] LABS: Glucose, Whole Blood 208 mg/dL (60-115)
[2023-10-10] MEDS: Insulin Lispro 100 UNIT/ML 3 ML VIAL SUBCUT (18:06)
[2023-10-10] MEDS: metFORMIN HCl ER 500 MG TAB.ER.24H 1000 MG PO (18:06)
[2023-10-10 20:12] VITALS: BP 139/79; PULSE 83; RESP 16; TEMP 36.2; O2SAT 97
[2023-10-10 21:51] LABS: Glucose, Whole Blood 137 mg/dL (60-115)
[2023-10-10] MEDS: traZODone HCL 50 MG TABLET PO (22:02)
[2023-10-10] MEDS: hydrOXYzine HCL 25 MG TABLET PO (22:03)
[2023-10-10] MEDS: lamoTRIgine 25 MG TABLET 75 MG PO (22:03)
[2023-10-10] MEDS: ARIPiprazole 10 MG TABLET PO (22:03)
[2023-10-10] MEDS: Insulin Glargine,Hum.rec.anlog 100 UNIT/ML 10 ML VIAL 20 UNIT SUBCUT (22:09)
[2023-10-11 07:25] VITALS: BP 132/65; PULSE 90; RESP 18; TEMP 36.1; O2SAT 96
[2023-10-11 08:49] LABS: Glucose, Whole Blood 135 mg/dL (60-115)
[2023-10-11] MEDS: Levothyroxine Sodium 200 MCG TABLET PO (09:14)
[2023-10-11] MEDS: Sertraline HCL 100 MG TABLET PO (09:14)
[2023-10-11] MEDS: Memantine HCl 5 MG TABLET PO ×2 (09:14→20:53)
[2023-10-11 09:40] LABS: Estimated Glomerular Filt Rate > 60
[2023-10-11 13:41] LABS: Glucose, Whole Blood 113 mg/dL (60-115)
[2023-10-11 17:58] LABS: Glucose, Whole Blood 165 mg/dL (60-115)
[2023-10-11] MEDS: metFORMIN HCl ER 500 MG TAB.ER.24H 1000 MG PO (18:11)
[2023-10-11] MEDS: Insulin Lispro 100 UNIT/ML 3 ML VIAL SUBCUT ×2 (18:12→20:50)
[2023-10-11 20:00] VITALS: BP 129/72; PULSE 92; RESP 16; TEMP 36.3; O2SAT 97
[2023-10-11 20:37] LABS: Glucose, Whole Blood 152 mg/dL (60-115)
[2023-10-11] MEDS: Insulin Glargine,Hum.rec.anlog 100 UNIT/ML 10 ML VIAL 20 UNIT SUBCUT (20:51)
[2023-10-11] MEDS: lamoTRIgine 25 MG TABLET 75 MG PO (20:53)
[2023-10-11] MEDS: ARIPiprazole 10 MG TABLET PO (20:55)
[2023-10-11] MEDS: hydrOXYzine HCL 25 MG TABLET PO (20:55)
[2023-10-11] MEDS: traZODone HCL 50 MG TABLET PO (20:55)
--- NOTE | 2023-10-11 21:13 | P.PNPSI_ITS ---
Subjective Subjective Date of Service: 10/11/23 Reason For Visit: paranoia cognitive impairment Subjective Notes: Conditional Voluntary Healthcare Proxy: Yes (Sign new CV) Interim History: Patient seen psychiatric follow-up somewhat more verbal odd interpersonally healthcare proxy invoked new CV signed Mental Status Exam Mental Status Exam Narrative: The patient is dysphoric sad looking blunted poverty of content limited engagement slowed mentation. slowed mentation continues difficulty with discharge planning suspiciousness at signing releases At times some level of suspiciousness no overt aggression or marked paranoia difficulty at times understanding difficulty at times changing sets. Poverty of content no SI HI actively difficulty with decision-making impaired insight judgment Diagnostics Vital Signs (24Hr): Vital Signs - 24 hr 10/11/23 07:25 Temperature 97.0 F Pulse Rate 90 Respiratory Rate 18 Blood Pressure 132/65 Pulse Oximetry 96 Oxygen Delivery Method Room Air BMI result Body Mass Index 31.4 Labs 09/10/23 20:00 10/11/23 08:59 Labs: Laboratory Results - last 48 hr 10/09/23 10/10/23 10/10/23 21:56 08:42 13:07 Creatinine Estim Creat Clear Calc Estimated GFR POC Glucose 213 H 120 H 102 10/10/23 10/10/23 10/11/23 17:57 21:46 08:39 Creatinine Estim Creat Clear Calc Estimated GFR POC Glucose 208 H 137 H 135 H 10/11/23 10/11/23 10/11/23 08:59 13:34 17:50 Creatinine 0.81 Estim Creat Clear Calc 113.0 Estimated GFR > 60 POC Glucose 113 165 H 10/11/23 20:32 Creatinine Estim Creat Clear Calc Estimated GFR POC Glucose 152 H Imaging Radiology Impressions: ITS Impressions Brain MRI 09/19/23 20:33 IMPRESSION: 1. No demonstrated acute intracranial abnormalities. 2. Chronic mild to moderate nonspecific white matter changes, most notably in the deep white matter of the right frontal lobe. Mild to moderate generalized cerebral volume loss. Medications Medications Current Medications Acetaminophen (Acetaminophen 325 Mg Tablet) 650 mg PO Q6H PRN PRN Reason: Headache/Pain Mild Scale (1-3) Last Admin: 09/20/23 15:15 Dose: 650 mg Al Hydroxide/Mg Hydroxide (Magnesium Hydrox/Alum Hydrox 30 Ml Oral.Susp) 30 ml PO Q6H PRN PRN Reason: Heartburn/Nausea Aripiprazole (Aripiprazole 10 Mg Tablet) 10 mg PO BEDTIME [facility] Last Admin: 10/11/23 20:55 Dose: 10 mg Benztropine Mesylate (Benztropine Mesylate 0.5 Mg Tablet) 0.5 mg PO TID PRN PRN Reason: Extrapyramidal Effects Glucose (Glucose Gel 15 Gm Gel..Gram.) 15 gm PO Q15M PRN; Protocol PRN Reason: per Hypoglycemia Standing Ord. Hydroxyzine HCl (Hydroxyzine Hcl 25 Mg Tablet) 25 mg PO Q6H PRN PRN Reason: Anxiety Last Admin: 10/11/23 20:55 Dose: 25 mg Dextrose (D10) 250 mls @ 750 mls/hr IV Q15M PRN; Protocol PRN Reason: per Hypoglycemia Standing Ord. Insulin Glargine (Insulin Glargine,Hum.Rec.Anlog 100 Unit/Ml 10 Ml Vial) 20 unit SUBCUT BEDTIME [facility] Last Admin: 10/11/23 20:51 Dose: 20 unit Insulin Human Lispro (Insulin Lispro 100 Unit/Ml 3 Ml Vial) 0 unit SUBCUT QIDACHS [facility]; Protocol Last Admin: 10/11/23 20:50 Dose: 2 unit Lamotrigine (Lamotrigine 25 Mg Tablet) 75 mg PO BEDTIME [facility] Last Admin: 10/11/23 20:53 Dose: 75 mg Levothyroxine Sodium (Levothyroxine Sodium 200 Mcg Tablet) 200 mcg PO DAILY [facility] Last Admin: 10/11/23 09:14 Dose: 200 mcg Magnesium Hydroxide (Milk Of Magnesia 30 Ml Oral.Susp) 30 ml PO DAILY PRN PRN Reason: Constipation Memantine (Memantine Hcl 5 Mg Tablet) 5 mg PO BID [facility] Last Admin: 10/11/23 20:53 Dose: 5 mg Metformin HCl (Metformin Hcl Er 500 Mg Tab.Er.24h) 1,000 mg PO DAILY@1700 [facility] Last Admin: 10/11/23 18:11 Dose: 1,000 mg Nicotine Polacrilex (Nicotine Polacrilex 2 Mg Gum) 4 mg BUCCAL Q2H PRN PRN Reason: Nicotine Cravings Sertraline HCl (Sertraline Hcl 100 Mg Tablet) 100 mg PO DAILY [facility] Last Admin: 10/11/23 09:14 Dose: 100 mg Trazodone HCl (Trazodone Hcl 50 Mg Tablet) 50 mg PO BEDTIME MRX1 PRN PRN Reason: Insomnia Last Admin: 10/11/23 20:55 Dose: 50 mg Allergies Allergies Allergy/AdvReac Type Severity Reaction Status Date / Time amoxicillin [AMOXICILLIN] Allergy Mild VOMITING/ABD Verified 09/10/23 19:44 PAIN Assessment & Plan Assessment & Plan (1) Schizoaffective disorder: Status: Acute Code(s): F25.9 - Schizoaffective disorder, unspecified (2) Hypothyroidism: Status: Acute Code(s): E03.9 - Hypothyroidism, unspecified (3) Type 2 diabetes mellitus: Status: Acute Code(s): E11.9 - Type 2 diabetes mellitus without complications Plan Patient is a 58 year old male with hx of Schizoaffective d/o and hypothyroid disorder/thyroid coma, stroke and brain aneurysm, who was brought to [facility] [place] [facility] on a Section 12 d/t disorganized behavior, concern for his memory impairment, medications noncompliance and poor ADLs. Plan: CV 15 minute safety checks Continue home medications: Haldol 10mg PO daily Synthroid 200mcg PO daily Obtain labs; A1C/POCs Obtain collateral from sister Obtain records from last hospitalization. MOCA Referral for DMH services if patient is agreeable. encourage medication compliance;consider VARGAS discharge planning 09/11: Elevated fasting blood sugar elevated hemoglobin A1c 9.2 med consult placed put in point of care needed will start metformin Would benefit from clarity over recent hospitalization what this were done details regarding treatment continue Haldol unclear if patient has Healthcare proxy his [place] was low slowed cognition with poor details in depth at times during blankly regarding making judgments Unclear if any of this relates to past coma or 2 hypothyroidism. He does seem more impaired than when last seen unclear when last imaging was. Continue Haldol sitter neuro indira involvement regarding diagnostic picture. Patient does remain paranoid blunted suspicious apathetic. He might benefit from longer- term placement if available and appropriate at a later time involved DMH involvement would be quite helpful 09/12: cont haldol get records ? hcp ? start antidep unclear hx 09/13: Keeping to self. More talkative today. Pt concerned he will be transferred to [facility]. Pt stated, The paper I signed yesterday. Are you going to send me back to the last hospital? That place was horrible . Pt was educated he signed a release of information with Dr. Gonzalez to obtain records from [facility]. Pt was given a copy of the release he signed. Despite this, pt continues to be anxious about being transferred. Pt denies SI/HI/VH/AH. 09/14: Keeping to self. active on unit. showered. Pt reports feeling alright today; pt reports he is worried about where I'm going to go . Pt continues concerned he will be transferred to [facility]. Pt denies SI/HI/VH/AH. 09/15:Pt reports feeling alright today; pt continues to report he is worried about where I'm going to go . Responding with brief responses. Guarded. Observed standing in one place for a long period of time. Appears confused. Pt denies SI/HI/VH/AH. T/W spoke to patient's sister, Ros, with patients verbal consent. Ros reports concerns regarding patients ability to make decisions regarding his mental and physical health. She plans on contacting legal advice on obtaining guardianship of patient. 09/16:Patient's presents similar to yesterday's presentation. Responding with brief responses. Guarded. Observed standing in one place for a long period of time, when asked what he is doing, pt stated, I don't know . Pt reports he plans on contacting his sister today and try to convince her for me to stay there . Pt denies SI/HI/VH/AH. Continue current tx plan. 09/17: brief responses. Guarded. 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 Pt denies SI/HI/VH/AH. T/W and Dr. Gonzalez spoke to patient's sister, Ros. Ros stated being [facility] HCP and plans on finding document. She plans on coming to the hospital on Saturday to be present for [facility] intake. 09/22/2023: No changes 09/23/2023 Patient flat apathetic difficult insight and judgment his sister is healthcare proxy if needed patient is accepting medical treatment Referral to [facility] 09/24/23 Considers starting Haldol Decanoate patient is agreeable superficially difficulty with exec fx was seen [facility] 09/25/23 Pt seen in f/u mood flat dysphoric difficulty engaging in conversation preoccupied with thought he wont be living with family thing slowed apathetic no clear response with namenda ? some improvement inc lamictal start low dose sertraline inc lamictal ck tsh 09/26/2023 Start Abilify as augmentation with Haldol see if can be more stimulating regarding depressed mood apathetic limited engagement sertraline 50 mg Lamictal 25 b.i.d. referral to [facility] which would have structure unclear if patient can engage with this he remains quite depressed has delusional beliefs regarding housing and that things have been done he has repeatedly tried to reach out to his sister denies active SI needs much help dressing talking with others encouragement to eat severe thought blocking Abilify might be more stimulating than Haldol which can be more dulling 09/27/23 Abilify started sertraline Lamictal encouraged step-down to [facility] encourage reality orientation denies active SI 09/27: Continue current regimen and plans 09/28: Continue current regimen and plans. 09/30/2023 Referral to [facility] increase Abilify to 5 mg daily eventually try and taper Haldol sertraline 50 mg daily 10/01/2023 Increase Abilify to 10 mg lower Haldol to 7 mg continue sertraline and Lamictal 10/02/2023 Abilify increased to 10 mg continue to taper Haldol sertraline 100 mg Lamictal increased to 75 mg patient apathetic withdrawn difficulty with placement some paranoia continues difficulty with decision making at times. Not physically aggressive internally preoccupied seems somewhat improved with Abilify sertraline Continue discharge planning 10/03/2023 Patient somewhat blunted flat slowed thinking during the day times staring. Change Abilify to 10 mg at bedtime. Scheduled Haldol will lowered to 2.5 mg Continue sertraline 100 mg Nam[place] 5 b.i.d. 10/04/2023 . Haldol discontinued modafinil low-dose monitor for psychosis or agitation continue discharge planning 10/07/2023 May need to firm healthcare proxy calls have been placed to sister to try to help in discharge planning. Referrals made. Patient cooperative with care 10/08/2023 Pharmacy ordering Abilify maintain a increase modafinil 100 mg patient remains flat passive depressed some improvement noted no current paranoia noted continue discharge planning no current safe discharge plan 10/09/2023 Increase Lamictal 100 mg Abilify Maintena 400 mg hold modafinil unclear if was overly stimulating patient continues to present internally preoccupied. 10/10/23 Healthcare proxy invoked discharge planning continue Lamictal Abilify pending maintain a 10/11/2023 Healthcare proxy invoked new CV signed discharge planning Reason for continued inpatient stay Substantial Risk for: inability to function and rapid decompensation Time Spent With Patient Time: Total time managing care of this patient today ____ minutes.
[2023-10-12 07:55] VITALS: BP 130/78; PULSE 87; RESP 16; TEMP 36.4; O2SAT 96
[2023-10-12 09:05] LABS: Glucose, Whole Blood 116 mg/dL (60-115)
[2023-10-12] MEDS: Memantine HCl 5 MG TABLET PO ×2 (09:28→21:15)
[2023-10-12] MEDS: Sertraline HCL 100 MG TABLET PO (09:28)
[2023-10-12] MEDS: Levothyroxine Sodium 200 MCG TABLET PO (09:28)
[2023-10-12 12:45] LABS: Glucose, Whole Blood 122 mg/dL (60-115)
--- NOTE | 2023-10-12 13:39 | HO.PSYCHPN ---
Subjective Subjective Date of Service: 10/12/23 Reason For Visit: paranoia cognitive impairment Subjective Notes: Conditional Voluntary Interim History: The nursing staff reported the patient had been more depressed slept all night he is guarded states most of the time in his room. On interview the patient denies new symptoms he looks internally preoccupied. He denies side-effects with current medication. Mental Status Exam Mental Status Exam Patient Appearance: Appropriate Patient Orientation: Person and Situation Level of Consciousness: Awake and Appropriate Patient Behavior: Guarded and Passive Mood Description: Withdrawn Affect Description: Constricted Ability to Follow Directions: Fair Speech Pattern: Clear 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: None Delusions: Not Present Thought Process: Distracted and Slowed Thinking Thought Content: positive for [place] and positive for Poverty of Content Judgement: Poor Diagnostics Vital Signs (24Hr): Vital Signs - 24 hr 10/11/23 20:00 10/12/23 07:55 Temperature 97.3 F 97.6 F Pulse Rate 92 87 Respiratory Rate 16 16 Blood Pressure 129/72 130/78 Pulse Oximetry 97 96 Oxygen Delivery Method Room Air Room Air BMI result Body Mass Index 31.4 Labs 09/10/23 20:00 10/11/23 08:59 Labs: Laboratory Results - last 48 hr 10/10/23 10/10/23 10/11/23 17:57 21:46 08:39 Creatinine Estim Creat Clear Calc Estimated GFR POC Glucose 208 H 137 H 135 H 10/11/23 10/11/23 10/11/23 08:59 13:34 17:50 Creatinine 0.81 Estim Creat Clear Calc 113.0 Estimated GFR > 60 POC Glucose 113 165 H 10/11/23 10/12/23 10/12/23 20:32 08:52 12:35 Creatinine Estim Creat Clear Calc Estimated GFR POC Glucose 152 H 116 H 122 H Imaging Radiology Impressions: ITS Impressions Brain MRI 09/19/23 20:33 IMPRESSION: 1. No demonstrated acute intracranial abnormalities. 2. Chronic mild to moderate nonspecific white matter changes, most notably in the deep white matter of the right frontal lobe. Mild to moderate generalized cerebral volume loss. Medications Medications Current Medications Acetaminophen (Acetaminophen 325 Mg Tablet) 650 mg PO Q6H PRN PRN Reason: Headache/Pain Mild Scale (1-3) Last Admin: 09/20/23 15:15 Dose: 650 mg Al Hydroxide/Mg Hydroxide (Magnesium Hydrox/Alum Hydrox 30 Ml Oral.Susp) 30 ml PO Q6H PRN PRN Reason: Heartburn/Nausea Aripiprazole (Aripiprazole 10 Mg Tablet) 10 mg PO BEDTIME [facility] Last Admin: 10/11/23 20:55 Dose: 10 mg Benztropine Mesylate (Benztropine Mesylate 0.5 Mg Tablet) 0.5 mg PO TID PRN PRN Reason: Extrapyramidal Effects Glucose (Glucose Gel 15 Gm Gel..Gram.) 15 gm PO Q15M PRN; Protocol PRN Reason: per Hypoglycemia Standing Ord. Hydroxyzine HCl (Hydroxyzine Hcl 25 Mg Tablet) 25 mg PO Q6H PRN PRN Reason: Anxiety Last Admin: 10/11/23 20:55 Dose: 25 mg Dextrose (D10) 250 mls @ 750 mls/hr IV Q15M PRN; Protocol PRN Reason: per Hypoglycemia Standing Ord. Insulin Glargine (Insulin Glargine,Hum.Rec.Anlog 100 Unit/Ml 10 Ml Vial) 20 unit SUBCUT BEDTIME [facility] Last Admin: 10/11/23 20:51 Dose: 20 unit Insulin Human Lispro (Insulin Lispro 100 Unit/Ml 3 Ml Vial) 0 unit SUBCUT QIDACHS [facility]; Protocol Last Admin: 10/12/23 13:02 Dose: Not Given Lamotrigine (Lamotrigine 100 Mg Tablet) 100 mg PO BEDTIME [facility] Levothyroxine Sodium (Levothyroxine Sodium 200 Mcg Tablet) 200 mcg PO DAILY [facility] Last Admin: 10/12/23 09:28 Dose: 200 mcg Magnesium Hydroxide (Milk Of Magnesia 30 Ml Oral.Susp) 30 ml PO DAILY PRN PRN Reason: Constipation Memantine (Memantine Hcl 5 Mg Tablet) 5 mg PO BID [facility] Last Admin: 10/12/23 09:28 Dose: 5 mg Metformin HCl (Metformin Hcl Er 500 Mg Tab.Er.24h) 1,000 mg PO DAILY@1700 [facility] Last Admin: 10/11/23 18:11 Dose: 1,000 mg Nicotine Polacrilex (Nicotine Polacrilex 2 Mg Gum) 4 mg BUCCAL Q2H PRN PRN Reason: Nicotine Cravings Sertraline HCl (Sertraline Hcl 100 Mg Tablet) 100 mg PO DAILY [facility] Last Admin: 10/12/23 09:28 Dose: 100 mg Trazodone HCl (Trazodone Hcl 50 Mg Tablet) 50 mg PO BEDTIME MRX1 PRN PRN Reason: Insomnia Last Admin: 10/11/23 20:55 Dose: 50 mg Allergies Allergies Allergy/AdvReac Type Severity Reaction Status Date / Time amoxicillin [AMOXICILLIN] Allergy Mild VOMITING/ABD Verified 09/10/23 19:44 PAIN Assessment & Plan Assessment & Plan (1) Schizoaffective disorder: Status: Acute Code(s): F25.9 - Schizoaffective disorder, unspecified (2) Hypothyroidism: Status: Acute Code(s): E03.9 - Hypothyroidism, unspecified (3) Type 2 diabetes mellitus: Status: Acute Code(s): E11.9 - Type 2 diabetes mellitus without complications Plan Patient is a 58 year old male with hx of Schizoaffective d/o and hypothyroid disorder/thyroid coma, stroke and brain aneurysm, who was brought to [facility] ER on a Section 12 d/t disorganized behavior, concern for his memory impairment, medications noncompliance and poor ADLs. Plan: CV 15 minute safety checks Continue home medications: Haldol 10mg PO daily Synthroid 200mcg PO daily Obtain labs; A1C/POCs Obtain collateral from sister Obtain records from last hospitalization. MOCA Referral for DMH services if patient is agreeable. encourage medication compliance;consider VARGAS discharge planning 09/11: Elevated fasting blood sugar elevated hemoglobin A1c 9.2 med consult placed put in point of care needed will start metformin Would benefit from clarity over recent hospitalization what this were done details regarding treatment continue Haldol unclear if patient has Healthcare proxy his [place] was low slowed cognition with poor details in depth at times during blankly regarding making judgments Unclear if any of this relates to past coma or 2 hypothyroidism. He does seem more impaired than when last seen unclear when last imaging was. Continue Haldol sitter neuro indira involvement regarding diagnostic picture. Patient does remain paranoid blunted suspicious apathetic. He might benefit from longer-term placement if available and appropriate at a later time involved DMH involvement would be quite helpful 09/12: cont haldol get records ? hcp ? start antidep unclear hx 09/13: Keeping to self. More talkative today. Pt concerned he will be transferred to [facility]. Pt stated, The paper I signed yesterday. Are you going to send me back to the last hospital? That place was horrible . Pt was educated he signed a release of information with Dr. Gonzalez to obtain records from [facility]. Pt was given a copy of the release he signed. Despite this, pt continues to be anxious about being transferred. Pt denies SI/HI/VH/AH. 09/14: Keeping to self. active on unit. showered. Pt reports feeling alright today; pt reports he is worried about where I'm going to go . Pt continues concerned he will be transferred to [facility]. Pt denies SI/HI/VH/AH. 09/15:Pt reports feeling alright today; pt continues to report he is worried about where I'm going to go . Responding with brief responses. Guarded. Observed standing in one place for a long period of time. Appears confused. Pt denies SI/HI/VH/AH. T/W spoke to patient's sister, Ros, with patients verbal consent. Ros reports concerns regarding patients ability to make decisions regarding his mental and physical health. She plans on contacting legal advice on obtaining guardianship of patient. 09/16:Patient's presents similar to yesterday's presentation. Responding with brief responses. Guarded. Observed standing in one place for a long period of time, when asked what he is doing, pt stated, I don't know . Pt reports he plans on contacting his sister today and try to convince her for me to stay there . Pt denies SI/HI/VH/AH. Continue current tx plan. 09/17: brief responses. Guarded. 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 Pt denies SI/HI/VH/AH. T/W and Dr. Gonzalez spoke to patient's sister, Ros. Ros stated being [facility] HCP and plans on finding document. She plans on coming to the hospital on Saturday to be present for [facility] intake. 09/22/2023: No changes 09/23/2023 Patient flat apathetic difficult insight and judgment his sister is healthcare proxy if needed patient is accepting medical treatment Referral to [facility] 09/24/23 Considers starting Haldol Decanoate patient is agreeable superficially difficulty with exec fx was seen [facility] 09/25/23 Pt seen in f/u mood flat dysphoric difficulty engaging in conversation preoccupied with thought he wont be living with family thing slowed apathetic no clear response with namenda ? some improvement inc lamictal start low dose sertraline inc lamictal ck tsh 09/26/2023 Start Abilify as augmentation with Haldol see if can be more stimulating regarding depressed mood apathetic limited engagement sertraline 50 mg Lamictal 25 b.i.d. referral to [facility] which would have structure unclear if patient can engage with this he remains quite depressed has delusional beliefs regarding housing and that things have been done he has repeatedly tried to reach out to his sister denies active SI needs much help dressing talking with others encouragement to eat severe thought blocking Abilify might be more stimulating than Haldol which can be more dulling 09/27/23 Abilify started sertraline Lamictal encouraged step-down to [facility] encourage reality orientation denies active SI 09/27: Continue current regimen and plans 09/28: Continue current regimen and plans. 09/30/2023 Referral to [facility] increase Abilify to 5 mg daily eventually try and taper Haldol sertraline 50 mg daily 10/01/2023 Increase Abilify to 10 mg lower Haldol to 7 mg continue sertraline and Lamictal 10/02/2023 Abilify increased to 10 mg continue to taper Haldol sertraline 100 mg Lamictal increased to 75 mg patient apathetic withdrawn difficulty with placement some paranoia continues difficulty with decision making at times. Not physically aggressive internally preoccupied seems somewhat improved with Abilify sertraline Continue discharge planning 10/03/2023 Patient somewhat blunted flat slowed thinking during the day times staring. Change Abilify to 10 mg at bedtime. Scheduled Haldol will lowered to 2.5 mg Continue sertraline 100 mg Namenda 5 b.i.d. 10/04/2023 . Haldol discontinued modafinil low-dose monitor for psychosis or agitation continue discharge planning 10/07/2023 May need to firm healthcare proxy calls have been placed to sister to try to help in discharge planning. Referrals made. Patient cooperative with care 10/08/2023 Pharmacy ordering Abilify maintain a increase modafinil 100 mg patient remains flat passive depressed some improvement noted no current paranoia noted continue discharge planning no current safe discharge plan 10/09/2023 Increase Lamictal 100 mg Abilify Maintena 400 mg hold modafinil unclear if was overly stimulating patient continues to present internally preoccupied. 10/10/23 Healthcare proxy invoked discharge planning continue Lamictal Abilify pending maintain a 10/11/2023 Healthcare proxy invoked new CV signed discharge planning. 10/11 keep same treatment Reason for continued inpatient stay Substantial Risk for: inability to function, rapid decompensation and med/psych decompensation Time Spent With Patient Time: Total time managing care of this patient today _20___ minutes.
[2023-10-12 17:53] LABS: Glucose, Whole Blood 187 mg/dL (60-115)
[2023-10-12] MEDS: metFORMIN HCl ER 500 MG TAB.ER.24H 1000 MG PO (18:02)
[2023-10-12] MEDS: Insulin Lispro 100 UNIT/ML 3 ML VIAL SUBCUT (18:03)
[2023-10-12 20:00] VITALS: BP 122/69; PULSE 89; RESP 16; TEMP 36.8; O2SAT 97
[2023-10-12 21:09] LABS: Glucose, Whole Blood 137 mg/dL (60-115)
[2023-10-12] MEDS: Insulin Glargine,Hum.rec.anlog 100 UNIT/ML 10 ML VIAL 20 UNIT SUBCUT (21:14)
[2023-10-12] MEDS: lamoTRIgine 100 MG TABLET PO (21:15)
[2023-10-12] MEDS: ARIPiprazole 10 MG TABLET PO (21:16)
[2023-10-12] MEDS: hydrOXYzine HCL 25 MG TABLET PO (21:16)
[2023-10-12] MEDS: traZODone HCL 50 MG TABLET PO (21:16)
[2023-10-13 08:00] VITALS: BP 131/62; PULSE 91; RESP 14; TEMP 37.6; O2SAT 95
[2023-10-13 08:28] LABS: Glucose, Whole Blood 113 mg/dL (60-115)
[2023-10-13] MEDS: Sertraline HCL 100 MG TABLET PO (08:33)
[2023-10-13] MEDS: Levothyroxine Sodium 200 MCG TABLET PO (08:33)
[2023-10-13] MEDS: Memantine HCl 5 MG TABLET PO ×2 (08:33→20:48)
[2023-10-13] MEDS: Acetaminophen 325 MG TABLET 650 MG PO (09:39)
[2023-10-13 12:58] LABS: Glucose, Whole Blood 159 mg/dL (60-115)
--- NOTE | 2023-10-13 12:59 | P.PNPSI_ITS ---
Subjective Subjective Date of Service: 10/13/23 Reason For Visit: paranoia cognitive impairment Subjective Notes: Conditional Voluntary Interim History: The nursing staff reported the patient has been flat withdrawn guarded but pleasant. He slept 8 hours. On interview the patient denies new symptoms he states that he is doing fine. No side effects with current medication. Mental Status Exam Mental Status Exam Patient Appearance: Appropriate Patient Orientation: Person and Situation Level of Consciousness: Awake and Appropriate Patient Behavior: Guarded and Passive Mood Description: Withdrawn Affect Description: Calm Patient Cognition Impaired: Yes Ability to Follow Directions: Good Speech Pattern: Clear 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: None Delusions: Not Present Thought Process: Distracted and Slowed Thinking Thought Content: positive for [place] and positive for Poverty of Content Judgement: Fair Diagnostics Vital Signs (24Hr): Vital Signs - 24 hr 10/12/23 20:00 10/13/23 08:00 Temperature 98.2 F 99.6 F Pulse Rate 89 91 Respiratory Rate 16 14 Blood Pressure 122/69 131/62 Pulse Oximetry 97 95 Oxygen Delivery Method Room Air Room Air BMI result Body Mass Index 31.4 Labs 09/10/23 20:00 10/11/23 08:59 Labs: Laboratory Results - last 48 hr 10/11/23 10/11/23 10/11/23 13:34 17:50 20:32 POC Glucose 113 165 H 152 H 10/12/23 10/12/23 10/12/23 08:52 12:35 17:49 POC Glucose 116 H 122 H 187 H 10/12/23 10/13/23 10/13/23 20:57 08:09 12:53 POC Glucose 137 H 113 159 H Imaging Radiology Impressions: ITS Impressions Brain MRI 09/19/23 20:33 IMPRESSION: 1. No demonstrated acute intracranial abnormalities. 2. Chronic mild to moderate nonspecific white matter changes, most notably in the deep white matter of the right frontal lobe. Mild to moderate generalized cerebral volume loss. Medications Medications Current Medications Acetaminophen (Acetaminophen 325 Mg Tablet) 650 mg PO Q6H PRN PRN Reason: Headache/Pain Mild Scale (1-3) Last Admin: 10/13/23 09:39 Dose: 650 mg Al Hydroxide/Mg Hydroxide (Magnesium Hydrox/Alum Hydrox 30 Ml Oral.Susp) 30 ml PO Q6H PRN PRN Reason: Heartburn/Nausea Aripiprazole (Aripiprazole 10 Mg Tablet) 10 mg PO BEDTIME [facility] Last Admin: 10/12/23 21:16 Dose: 10 mg Benztropine Mesylate (Benztropine Mesylate 0.5 Mg Tablet) 0.5 mg PO TID PRN PRN Reason: Extrapyramidal Effects Glucose (Glucose Gel 15 Gm Gel..Gram.) 15 gm PO Q15M PRN; Protocol PRN Reason: per Hypoglycemia Standing Ord. Hydroxyzine HCl (Hydroxyzine Hcl 25 Mg Tablet) 25 mg PO Q6H PRN PRN Reason: Anxiety Last Admin: 10/12/23 21:16 Dose: 25 mg Dextrose (D10) 250 mls @ 750 mls/hr IV Q15M PRN; Protocol PRN Reason: per Hypoglycemia Standing Ord. Insulin Glargine (Insulin Glargine,Hum.Rec.Anlog 100 Unit/Ml 10 Ml Vial) 20 unit SUBCUT BEDTIME [facility] Last Admin: 10/12/23 21:14 Dose: 20 unit Insulin Human Lispro (Insulin Lispro 100 Unit/Ml 3 Ml Vial) 0 unit SUBCUT QIDACHS [facility]; Protocol Last Admin: 10/13/23 09:51 Dose: Not Given Lamotrigine (Lamotrigine 100 Mg Tablet) 100 mg PO BEDTIME [facility] Last Admin: 10/12/23 21:15 Dose: 100 mg Levothyroxine Sodium (Levothyroxine Sodium 200 Mcg Tablet) 200 mcg PO DAILY [facility] Last Admin: 10/13/23 08:33 Dose: 200 mcg Magnesium Hydroxide (Milk Of Magnesia 30 Ml Oral.Susp) 30 ml PO DAILY PRN PRN Reason: Constipation Memantine (Memantine Hcl 5 Mg Tablet) 5 mg PO BID [facility] Last Admin: 10/13/23 08:33 Dose: 5 mg Metformin HCl (Metformin Hcl Er 500 Mg Tab.Er.24h) 1,000 mg PO DAILY@1700 [facility] Last Admin: 10/12/23 18:02 Dose: 1,000 mg Nicotine Polacrilex (Nicotine Polacrilex 2 Mg Gum) 4 mg BUCCAL Q2H PRN PRN Reason: Nicotine Cravings Sertraline HCl (Sertraline Hcl 100 Mg Tablet) 100 mg PO DAILY [facility] Last Admin: 10/13/23 08:33 Dose: 100 mg Trazodone HCl (Trazodone Hcl 50 Mg Tablet) 50 mg PO BEDTIME MRX1 PRN PRN Reason: Insomnia Last Admin: 10/12/23 21:16 Dose: 50 mg Allergies Allergies Allergy/AdvReac Type Severity Reaction Status Date / Time amoxicillin [AMOXICILLIN] Allergy Mild VOMITING/ABD Verified 09/10/23 19:44 PAIN Assessment & Plan Assessment & Plan (1) Schizoaffective disorder: Status: Acute Code(s): F25.9 - Schizoaffective disorder, unspecified (2) Hypothyroidism: Status: Acute Code(s): E03.9 - Hypothyroidism, unspecified (3) Type 2 diabetes mellitus: Status: Acute Code(s): E11.9 - Type 2 diabetes mellitus without complications Plan Patient is a 58 year old male with hx of Schizoaffective d/o and hypothyroid disorder/thyroid coma, stroke and brain aneurysm, who was brought to [facility] on a Section 12 d/t disorganized behavior, concern for his memory impairment, medications noncompliance and poor ADLs. Plan: CV 15 minute safety checks Continue home medications: Haldol 10mg PO daily Synthroid 200mcg PO daily Obtain labs; A1C/POCs Obtain collateral from sister Obtain records from last hospitalization. MOCA Referral for DMH services if patient is agreeable. encourage medication compliance;consider VARGAS discharge planning 09/11: Elevated fasting blood sugar elevated hemoglobin A1c 9.2 med consult placed put in point of care needed will start metformin Would benefit from clarity over recent hospitalization what this were done details regarding treatment continue Haldol unclear if patient has Healthcare proxy his [place] was low slowed cognition with poor details in depth at times during blankly regarding making judgments Unclear if any of this relates to past coma or 2 hypothyroidism. He does seem more impaired than when last seen unclear when last imaging was. Continue Haldol sitter neuro indira involvement regarding diagnostic picture. Patient does remain paranoid blunted suspicious apathetic. He might benefit from longer- term placement if available and appropriate at a later time involved DMH involvement would be quite helpful 09/12: cont haldol get records ? hcp ? start antidep unclear hx 09/13: Keeping to self. More talkative today. Pt concerned he will be transferred to [facility]. Pt stated, The paper I signed yesterday. Are you going to send me back to the last hospital? That place was horrible . Pt was educated he signed a release of information with Dr. Gonzalez to obtain records from [facility]. Pt was given a copy of the release he signed. Despite this, pt continues to be anxious about being transferred. Pt denies SI/HI/VH/AH. 09/14: Keeping to self. active on unit. showered. Pt reports feeling alright today; pt reports he is worried about where I'm going to go . Pt continues concerned he will be transferred to [facility]. Pt denies SI/HI/VH/AH. 09/15:Pt reports feeling alright today; pt continues to report he is worried about where I'm going to go . Responding with brief responses. Guarded. Observed standing in one place for a long period of time. Appears confused. Pt denies SI/HI/VH/AH. T/W spoke to patient's sister, Ros, with patients verbal consent. Ros reports concerns regarding patients ability to make decisions regarding his mental and physical health. She plans on contacting legal advice on obtaining guardianship of patient. 09/16:Patient's presents similar to yesterday's presentation. Responding with brief responses. Guarded. Observed standing in one place for a long period of time, when asked what he is doing, pt stated, I don't know . Pt reports he plans on contacting his sister today and try to convince her for me to stay there . Pt denies SI/HI/VH/AH. Continue current tx plan. 09/17: brief responses. Guarded. 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 Pt denies SI/HI/VH/AH. T/W and Dr. Gonzalez spoke to patient's sister, Ros. Ros stated being [facility] HCP and plans on finding document. She plans on coming to the hospital on Saturday to be present for [facility] intake. 09/22/2023: No changes 09/23/2023 Patient flat apathetic difficult insight and judgment his sister is healthcare proxy if needed patient is accepting medical treatment Referral to [facility] 09/24/23 Considers starting Haldol Decanoate patient is agreeable superficially difficulty with exec fx was seen [facility] 09/25/23 Pt seen in f/u mood flat dysphoric difficulty engaging in conversation preoccupied with thought he wont be living with family thing slowed apathetic no clear response with namenda ? some improvement inc lamictal start low dose sertraline inc lamictal ck tsh 09/26/2023 Start Abilify as augmentation with Haldol see if can be more stimulating regarding depressed mood apathetic limited engagement sertraline 50 mg Lamictal 25 b.i.d. referral to [facility] which would have structure unclear if patient can engage with this he remains quite depressed has delusional beliefs regarding housing and that things have been done he has repeatedly tried to reach out to his sister denies active SI needs much help dressing talking with others encouragement to eat severe thought blocking Abilify might be more stimulating than Haldol which can be more dulling 09/27/23 Abilify started sertraline Lamictal encouraged step-down to [facility] encourage reality orientation denies active SI 09/27: Continue current regimen and plans 09/28: Continue current regimen and plans. 09/30/2023 [address]erral to [facility] increase Abilify to 5 mg daily eventually try and taper Haldol sertraline 50 mg daily 10/01/2023 Increase Abilify to 10 mg lower Haldol to 7 mg continue sertraline and Lamictal 10/02/2023 Abilify increased to 10 mg continue to taper Haldol sertraline 100 mg Lamictal increased to 75 mg patient apathetic withdrawn difficulty with placement some paranoia continues difficulty with decision making at times. Not physically aggressive internally preoccupied seems somewhat improved with Abilify sertraline Continue discharge planning 10/03/2023 Patient somewhat blunted flat slowed thinking during the day times staring. Change Abilify to 10 mg at bedtime. Scheduled Haldol will lowered to 2.5 mg Continue sertraline 100 mg Nam[place] 5 b.i.d. 10/04/2023 . Haldol discontinued modafinil low-dose monitor for psychosis or agitation continue discharge planning 10/07/2023 May need to firm healthcare proxy calls have been placed to sister to try to help in discharge planning. Referrals made. Patient cooperative with care 10/08/2023 Pharmacy ordering Abilify maintain a increase modafinil 100 mg patient remains flat passive depressed some improvement noted no current paranoia noted continue discharge planning no current safe discharge plan 10/09/2023 Increase Lamictal 100 mg Abilify Maintena 400 mg hold modafinil unclear if was overly stimulating patient continues to present internally preoccupied. 10/10/23 Healthcare proxy invoked discharge planning continue Lamictal Abilify pending maintain a 10/11/2023 Healthcare proxy invoked new CV signed discharge planning. 10/11 keep same treatment 10/12 keep same treatment Reason for continued inpatient stay Substantial Risk for: inability to function, rapid decompensation and med/psych decompensation Time Spent With Patient Time: Total time managing care of this patient today __20__ minutes.
[2023-10-13] MEDS: Insulin Lispro 100 UNIT/ML 3 ML VIAL SUBCUT ×2 (13:07→21:32)
[2023-10-13 17:46] LABS: Glucose, Whole Blood 124 mg/dL (60-115)
[2023-10-13] MEDS: metFORMIN HCl ER 500 MG TAB.ER.24H 1000 MG PO (18:47)
[2023-10-13 20:00] VITALS: BP 122/66; PULSE 90; RESP 18; TEMP 36.4; O2SAT 98
[2023-10-13] MEDS: lamoTRIgine 100 MG TABLET PO (20:48)
[2023-10-13] MEDS: ARIPiprazole 10 MG TABLET PO (20:48)
[2023-10-13] MEDS: Insulin Glargine,Hum.rec.anlog 100 UNIT/ML 10 ML VIAL 20 UNIT SUBCUT (21:27)
[2023-10-13 21:32] LABS: Glucose, Whole Blood 224 mg/dL (60-115)
[2023-10-14 08:00] VITALS: BP 129/73; PULSE 96; RESP 16; TEMP 36.8; O2SAT 99
[2023-10-14 08:33] LABS: Glucose, Whole Blood 100 mg/dL (60-115)
[2023-10-14] MEDS: Memantine HCl 5 MG TABLET PO ×2 (09:03→21:55)
[2023-10-14] MEDS: Sertraline HCL 100 MG TABLET PO (09:03)
[2023-10-14] MEDS: Levothyroxine Sodium 200 MCG TABLET PO (09:04)
[2023-10-14 13:11] LABS: Glucose, Whole Blood 123 mg/dL (60-115)
[2023-10-14 18:19] LABS: Glucose, Whole Blood 123 mg/dL (60-115)
[2023-10-14] MEDS: metFORMIN HCl ER 500 MG TAB.ER.24H 1000 MG PO (18:46)
[2023-10-14 20:00] VITALS: BP 136/82; PULSE 92; RESP 16; TEMP 36.9; O2SAT 96
[2023-10-14 21:15] LABS: Glucose, Whole Blood 233 mg/dL (60-115)
[2023-10-14] MEDS: Insulin Glargine,Hum.rec.anlog 100 UNIT/ML 10 ML VIAL 20 UNIT SUBCUT (21:54)
[2023-10-14] MEDS: Insulin Lispro 100 UNIT/ML 3 ML VIAL SUBCUT (21:54)
[2023-10-14] MEDS: ARIPiprazole 10 MG TABLET PO (21:55)
[2023-10-14] MEDS: lamoTRIgine 100 MG TABLET PO (21:55)
[2023-10-14] MEDS: traZODone HCL 50 MG TABLET PO (21:55)
--- NOTE | 2023-10-14 22:42 | P.PNPSI_ITS ---
Subjective Subjective Date of Service: 10/07/23 Reason For Visit: paranoia cognitive impairment Subjective Notes: Conditional Voluntary Healthcare Proxy: Yes Interim History: Patient has been in engaged not overly depressed or agitated remains flat intermittently withdrawn Social work working on discharge with [facility] proxy invoked Mental Status Exam Mental Status Exam Patient Appearance: Appropriate Patient Orientation: Person and Situation Level of Consciousness: Awake and Appropriate Patient Behavior: Guarded and Passive Mood Description: Withdrawn Affect Description: Calm Patient Cognition Impaired: Yes Ability to Follow Directions: Good Speech Pattern: Clear 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: None Delusions: Not Present Thought Process: Distracted and Slowed Thinking Thought Content: positive for [place] and positive for Poverty of Content Judgement: Fair Diagnostics Vital Signs (24Hr): Vital Signs - 24 hr 10/14/23 08:00 10/14/23 20:00 Temperature 98.3 F 98.5 F Pulse Rate 96 92 Respiratory Rate 16 16 Blood Pressure 129/73 136/82 Pulse Oximetry 99 96 Oxygen Delivery Method Room Air Room Air BMI result Body Mass Index 31.4 Labs 09/10/23 20:00 10/11/23 08:59 Labs: Laboratory Results - last 48 hr 10/13/23 10/13/23 10/13/23 08:09 12:53 17:38 POC Glucose 113 159 H 124 H 10/13/23 10/14/23 10/14/23 21:26 08:26 12:47 POC Glucose 224 H 100 123 H 10/14/23 10/14/23 18:16 21:09 POC Glucose 123 H 233 H Imaging Radiology Impressions: ITS Impressions Brain MRI 09/19/23 20:33 IMPRESSION: 1. No demonstrated acute intracranial abnormalities. 2. Chronic mild to moderate nonspecific white matter changes, most notably in the deep white matter of the right frontal lobe. Mild to moderate generalized cerebral volume loss. Medications Medications Current Medications Acetaminophen (Acetaminophen 325 Mg Tablet) 650 mg PO Q6H PRN PRN Reason: Headache/Pain Mild Scale (1-3) Last Admin: 10/13/23 09:39 Dose: 650 mg Al Hydroxide/Mg Hydroxide (Magnesium Hydrox/Alum Hydrox 30 Ml Oral.Susp) 30 ml PO Q6H PRN PRN Reason: Heartburn/Nausea Aripiprazole (Aripiprazole 10 Mg Tablet) 10 mg PO BEDTIME MANAS Last Admin: 10/14/23 21:55 Dose: 10 mg Benztropine Mesylate (Benztropine Mesylate 0.5 Mg Tablet) 0.5 mg PO TID PRN PRN Reason: Extrapyramidal Effects Glucose (Glucose Gel 15 Gm Gel..Gram.) 15 gm PO Q15M PRN; Protocol PRN Reason: per Hypoglycemia Standing Ord. Hydroxyzine HCl (Hydroxyzine Hcl 25 Mg Tablet) 25 mg PO Q6H PRN PRN Reason: Anxiety Last Admin: 10/12/23 21:16 Dose: 25 mg Dextrose (D10) 250 mls @ 750 mls/hr IV Q15M PRN; Protocol PRN Reason: per Hypoglycemia Standing Ord. Insulin Glargine (Insulin Glargine,Hum.Rec.Anlog 100 Unit/Ml 10 Ml Vial) 20 unit SUBCUT BEDTIME [facility] Last Admin: 10/14/23 21:54 Dose: 20 unit Insulin Human Lispro (Insulin Lispro 100 Unit/Ml 3 Ml Vial) 0 unit SUBCUT QIDACHS [facility]; Protocol Last Admin: 10/14/23 21:54 Dose: 4 unit Lamotrigine (Lamotrigine 100 Mg Tablet) 100 mg PO BEDTIME [facility] Last Admin: 10/14/23 21:55 Dose: 100 mg Levothyroxine Sodium (Levothyroxine Sodium 200 Mcg Tablet) 200 mcg PO DAILY [facility] Last Admin: 10/14/23 09:04 Dose: 200 mcg Magnesium Hydroxide (Milk Of Magnesia 30 Ml Oral.Susp) 30 ml PO DAILY PRN PRN Reason: Constipation Memantine (Memantine Hcl 5 Mg Tablet) 5 mg PO BID [facility] Last Admin: 10/14/23 21:55 Dose: 5 mg Metformin HCl (Metformin Hcl Er 500 Mg Tab.Er.24h) 1,000 mg PO DAILY@1700 [facility] Last Admin: 10/14/23 18:46 Dose: 1,000 mg Nicotine Polacrilex (Nicotine Polacrilex 2 Mg Gum) 4 mg BUCCAL Q2H PRN PRN Reason: Nicotine Cravings Sertraline HCl (Sertraline Hcl 100 Mg Tablet) 100 mg PO DAILY [facility] Last Admin: 10/14/23 09:03 Dose: 100 mg Trazodone HCl (Trazodone Hcl 50 Mg Tablet) 50 mg PO BEDTIME MRX1 PRN PRN Reason: Insomnia Last Admin: 10/14/23 21:55 Dose: 50 mg Allergies Allergies Allergy/AdvReac Type Severity Reaction Status Date / Time amoxicillin [AMOXICILLIN] Allergy Mild VOMITING/ABD Verified 09/10/23 19:44 PAIN Assessment & Plan Assessment & Plan (1) Schizoaffective disorder: Status: Acute Code(s): F25.9 - Schizoaffective disorder, unspecified (2) Hypothyroidism: Status: Acute Code(s): E03.9 - Hypothyroidism, unspecified (3) Type 2 diabetes mellitus: Status: Acute Code(s): E11.9 - Type 2 diabetes mellitus without complications Plan Patient is a 58 year old male with hx of Schizoaffective d/o and hypothyroid disorder/thyroid coma, stroke and brain aneurysm, who was brought to [facility] on a Section 12 d/t disorganized behavior, concern for his memory impairment, medications noncompliance and poor ADLs. Plan: CV 15 minute safety checks Continue home medications: Haldol 10mg PO daily Synthroid 200mcg PO daily Obtain labs; A1C/POCs Obtain collateral from sister Obtain records from last hospitalization. MOCA Referral for DMH services if patient is agreeable. encourage medication compliance;consider VARGAS discharge planning 09/11: Elevated fasting blood sugar elevated hemoglobin A1c 9.2 med consult placed put in point of care needed will start metformin Would benefit from clarity over recent hospitalization what this were done details regarding treatment continue Haldol unclear if patient has Healthcare proxy his [place] was low slowed cognition with poor details in depth at times during blankly regarding making judgments Unclear if any of this relates to past coma or 2 hypothyroidism. He does seem more impaired than when last seen unclear when last imaging was. Continue Haldol sitter neuro indira involvement regarding diagnostic picture. Patient does remain paranoid blunted suspicious apathetic. He might benefit from longer- term placement if available and appropriate at a later time involved DMH involvement would be quite helpful 09/12: cont haldol get records ? hcp ? start antidep unclear hx 09/13: Keeping to self. More talkative today. Pt concerned he will be transferred to [facility]. Pt stated, The paper I signed yesterday. Are you going to send me back to the last hospital? That place was horrible . Pt was educated he signed a release of information with Dr. Gonzalez to obtain records from [facility]. Pt was given a copy of the release he signed. Despite this, pt continues to be anxious about being transferred. Pt denies SI/HI/VH/AH. 09/14: Keeping to self. active on unit. showered. Pt reports feeling alright today; pt reports he is worried about where I'm going to go . Pt continues concerned he will be transferred to [facility]. Pt denies SI/HI/VH/AH. 09/15:Pt reports feeling alright today; pt continues to report he is worried about where I'm going to go . Responding with brief responses. Guarded. Observed standing in one place for a long period of time. Appears confused. Pt denies SI/HI/VH/AH. T/W spoke to patient's sister, Ros, with patients verbal consent. Ros reports concerns regarding patients ability to make decisions regarding his mental and physical health. She plans on contacting legal advice on obtaining guardianship of patient. 09/16:Patient's presents similar to yesterday's presentation. Responding with brief responses. Guarded. Observed standing in one place for a long period of time, when asked what he is doing, pt stated, I don't know . Pt reports he plans on contacting his sister today and try to convince her for me to stay there . Pt denies SI/HI/VH/AH. Continue current tx plan. 09/17: brief responses. Guarded. 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 Pt denies SI/HI/VH/AH. T/W and Dr. Gonzalez spoke to patient's sister, Ros. Ros stated being [facility] and plans on finding document. She plans on coming to the hospital on Saturday to be present for [facility] intake. 09/22/2023: No changes 09/23/2023 Patient flat apathetic difficult insight and judgment his sister is healthcare proxy if needed patient is accepting medical treatment Referral to [facility] 09/24/23 Considers starting Haldol Decanoate patient is agreeable superficially difficulty with exec fx was seen [facility] 09/25/23 Pt seen in f/u mood flat dysphoric difficulty engaging in conversation preoccupied with thought he wont be living with family thing slowed apathetic no clear response with namenda ? some improvement inc lamictal start low dose sertraline inc lamictal ck tsh 09/26/2023 Start Abilify as augmentation with Haldol see if can be more stimulating regarding depressed mood apathetic limited engagement sertraline 50 mg Lamictal 25 b.i.d. referral to [facility] which would have structure unclear if patient can engage with this he remains quite depressed has delusional beliefs regarding housing and that things have been done he has repeatedly tried to reach out to his sister denies active SI needs much help dressing talking with others encouragement to eat severe thought blocking Abilify might be more stimulating than Haldol which can be more dulling 09/27/23 Abilify started sertraline Lamictal [facility] encourage reality orientation denies active SI 09/27: Continue current regimen and plans 09/28: Continue current regimen and plans. 09/30/2023 Referral to [facility] [place] increase Abilify to 5 mg daily eventually try and taper Haldol sertraline 50 mg daily 10/01/2023 Increase Abilify to 10 mg lower Haldol to 7 mg continue sertraline and Lamictal 10/02/2023 Abilify increased to 10 mg continue to taper Haldol sertraline 100 mg Lamictal increased to 75 mg patient apathetic withdrawn difficulty with placement some paranoia continues difficulty with decision making at times. Not physically aggressive internally preoccupied seems somewhat improved with Abilify sertraline Continue discharge planning 10/03/2023 Patient somewhat blunted flat slowed thinking during the day times staring. Change Abilify to 10 mg at bedtime. Scheduled Haldol will lowered to 2.5 mg Continue sertraline 100 mg Namenda 5 b.i.d. 10/04/2023 . Haldol discontinued modafinil low-dose monitor for psychosis or agitation continue discharge planning 10/07/2023 May need to firm healthcare proxy calls have been placed to sister to try to help in discharge planning. Referrals made. Patient cooperative with care 10/08/2023 Pharmacy ordering Abilify maintain a increase modafinil 100 mg patient remains flat passive depressed some improvement noted no current paranoia noted continue discharge planning no current safe discharge plan 10/09/2023 Increase Lamictal 100 mg Abilify Maintena 400 mg hold modafinil unclear if was overly stimulating patient continues to present internally preoccupied. 10/10/23 Healthcare proxy invoked discharge planning continue Lamictal Abilify pending maintain a 10/11/2023 Healthcare proxy invoked new CV signed discharge planning. 10/11 keep same treatment 10/12 keep same treatment 10/14/2023 Continue plan of care Lamictal Abilify discharge planning sertraline Reason for continued inpatient stay Substantial Risk for: inability to function and rapid decompensation Time Spent With Patient Time: Total time managing care of this patient today ____ minutes.
[2023-10-15 08:00] VITALS: BP 121/58; PULSE 84; RESP 16; TEMP 36.4; O2SAT 96
[2023-10-15 08:43] LABS: Glucose, Whole Blood 128 mg/dL (60-115)
[2023-10-15] MEDS: Sertraline HCL 100 MG TABLET PO (08:55)
[2023-10-15] MEDS: Levothyroxine Sodium 200 MCG TABLET PO (08:55)
[2023-10-15] MEDS: Memantine HCl 5 MG TABLET PO ×2 (08:55→21:10)
[2023-10-15 12:48] LABS: Glucose, Whole Blood 199 mg/dL (60-115)
[2023-10-15] MEDS: Insulin Lispro 100 UNIT/ML 3 ML VIAL SUBCUT ×2 (13:17→18:02)
--- NOTE | 2023-10-15 15:22 | P.PNPSI_ITS ---
Subjective Subjective Date of Service: 10/15/23 Reason For Visit: paranoia cognitive impairment Interim History: calm, cooperative, pleasant. reports he is sleeping, eating, toileting, getting along with others well. no complaints or requests. per staff, staring, malodorous. taking meds. showered last night. slept 8 hours. Mental Status Exam Mental Status Exam Patient Appearance: Appropriate Patient Orientation: Person and Situation Level of Consciousness: Awake and Appropriate Patient Behavior: Guarded and Passive Mood Description: Withdrawn Affect Description: Calm Patient Cognition Impaired: Yes Ability to Follow Directions: Good Speech Pattern: Clear 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: None Delusions: Not Present Thought Process: Distracted and Slowed Thinking Thought Content: positive for [place] and positive for Poverty of Content Judgement: Fair Diagnostics Vital Signs (24Hr): Vital Signs - 24 hr 10/14/23 20:00 10/15/23 08:00 Temperature 98.5 F 97.6 F Pulse Rate 92 84 Respiratory Rate 16 16 Blood Pressure 136/82 121/58 L Pulse Oximetry 96 96 Oxygen Delivery Method Room Air Room Air BMI result Body Mass Index 31.4 Labs 09/10/23 20:00 10/11/23 08:59 Labs: Laboratory Results - last 48 hr 10/13/23 10/13/23 10/14/23 17:38 21:26 08:26 POC Glucose 124 H 224 H 100 10/14/23 10/14/23 10/14/23 12:47 18:16 21:09 POC Glucose 123 H 123 H 233 H 10/15/23 10/15/23 08:29 12:41 POC Glucose 128 H 199 H Imaging Radiology Impressions: ITS Impressions Brain MRI 09/19/23 20:33 IMPRESSION: 1. No demonstrated acute intracranial abnormalities. 2. Chronic mild to moderate nonspecific white matter changes, most notably in the deep white matter of the right frontal lobe. Mild to moderate generalized cerebral volume loss. Medications Medications Current Medications Acetaminophen (Acetaminophen 325 Mg Tablet) 650 mg PO Q6H PRN PRN Reason: Headache/Pain Mild Scale (1-3) Last Admin: 10/13/23 09:39 Dose: 650 mg Al Hydroxide/Mg Hydroxide (Magnesium Hydrox/Alum Hydrox 30 Ml Oral.Susp) 30 ml PO Q6H PRN PRN Reason: Heartburn/Nausea Aripiprazole (Aripiprazole 10 Mg Tablet) 10 mg PO BEDTIME MANAS Last Admin: 10/14/23 21:55 Dose: 10 mg Benztropine Mesylate (Benztropine Mesylate 0.5 Mg Tablet) 0.5 mg PO TID PRN PRN Reason: Extrapyramidal Effects Glucose (Glucose Gel 15 Gm Gel..Gram.) 15 gm PO Q15M PRN; Protocol PRN Reason: per Hypoglycemia Standing Ord. Hydroxyzine HCl (Hydroxyzine Hcl 25 Mg Tablet) 25 mg PO Q6H PRN PRN Reason: Anxiety Last Admin: 10/12/23 21:16 Dose: 25 mg Dextrose (D10) 250 mls @ 750 mls/hr IV Q15M PRN; Protocol PRN Reason: per Hypoglycemia Standing Ord. Insulin Glargine (Insulin Glargine,Hum.Rec.Anlog 100 Unit/Ml 10 Ml Vial) 20 unit SUBCUT BEDTIME [facility] Last Admin: 10/14/23 21:54 Dose: 20 unit Insulin Human Lispro (Insulin Lispro 100 Unit/Ml 3 Ml Vial) 0 unit SUBCUT QIDACHS [facility]; Protocol Last Admin: 10/15/23 13:17 Dose: 2 unit Lamotrigine (Lamotrigine 100 Mg Tablet) 100 mg PO BEDTIME [facility] Last Admin: 10/14/23 21:55 Dose: 100 mg Levothyroxine Sodium (Levothyroxine Sodium 200 Mcg Tablet) 200 mcg PO DAILY [facility] Last Admin: 10/15/23 08:55 Dose: 200 mcg Magnesium Hydroxide (Milk Of Magnesia 30 Ml Oral.Susp) 30 ml PO DAILY PRN PRN Reason: Constipation Memantine (Memantine Hcl 5 Mg Tablet) 5 mg PO BID [facility] Last Admin: 10/15/23 08:55 Dose: 5 mg Metformin HCl (Metformin Hcl Er 500 Mg Tab.Er.24h) 1,000 mg PO DAILY@1700 [facility] Last Admin: 10/14/23 18:46 Dose: 1,000 mg Nicotine Polacrilex (Nicotine Polacrilex 2 Mg Gum) 4 mg BUCCAL Q2H PRN PRN Reason: Nicotine Cravings Sertraline HCl (Sertraline Hcl 100 Mg Tablet) 100 mg PO DAILY [facility] Last Admin: 10/15/23 08:55 Dose: 100 mg Trazodone HCl (Trazodone Hcl 50 Mg Tablet) 50 mg PO BEDTIME MRX1 PRN PRN Reason: Insomnia Last Admin: 10/14/23 21:55 Dose: 50 mg Allergies Allergies Allergy/AdvReac Type Severity Reaction Status Date / Time amoxicillin [AMOXICILLIN] Allergy Mild VOMITING/ABD Verified 09/10/23 19:44 PAIN Assessment & Plan Assessment & Plan (1) Schizoaffective disorder: Status: Acute Code(s): F25.9 - Schizoaffective disorder, unspecified (2) Hypothyroidism: Status: Acute Code(s): E03.9 - Hypothyroidism, unspecified (3) Type 2 diabetes mellitus: Status: Acute Code(s): E11.9 - Type 2 diabetes mellitus without complications Plan Patient is a 58 year old male with hx of Schizoaffective d/o and hypothyroid disorder/thyroid coma, stroke and brain aneurysm, who was brought to [facility] ER on a Section 12 d/t disorganized behavior, concern for his memory impairment, medications noncompliance and poor ADLs. Plan: CV 15 minute safety checks Continue home medications: Haldol 10mg PO daily Synthroid 200mcg PO daily Obtain labs; A1C/POCs Obtain collateral from sister Obtain records from last hospitalization. MOCA Referral for DMH services if patient is agreeable. encourage medication compliance;consider VARGAS discharge planning 09/11: Elevated fasting blood sugar elevated hemoglobin A1c 9.2 med consult placed put in point of care needed will start metformin Would benefit from clarity over recent hospitalization what this were done details regarding treatment continue Haldol unclear if patient has Healthcare proxy his [place] was low slowed cognition with poor details in depth at times during blankly regarding making judgments Unclear if any of this relates to past coma or 2 hypothyroidism. He does seem more impaired than when last seen unclear when last imaging was. Continue Haldol sitter neuro indira involvement regarding diagnostic picture. Patient does remain paranoid blunted suspicious apathetic. He might benefit from longer- term placement if available and appropriate at a later time involved DMH involvement would be quite helpful 09/12: cont haldol get records ? hcp ? start antidep unclear hx 09/13: Keeping to self. More talkative today. Pt concerned he will be transferred to [facility]. Pt stated, The paper I signed yesterday. Are you going to send me back to the last hospital? That place was horrible . Pt was educated he signed a release of information with Dr. Gonzalez to obtain records from [facility]. Pt was given a copy of the release he signed. Despite this, pt continues to be anxious about being transferred. Pt denies SI/HI/VH/AH. 09/14: Keeping to self. active on unit. showered. Pt reports feeling alright today; pt reports he is worried about where I'm going to go . Pt continues concerned he will be transferred to [facility]. Pt denies SI/HI/VH/AH. 09/15:Pt reports feeling alright today; pt continues to report he is worried about where I'm going to go . Responding with brief responses. Guarded. Observed standing in one place for a long period of time. Appears confused. Pt denies SI/HI/VH/AH. T/W spoke to patient's sister, Ros, with patients verbal consent. Ros reports concerns regarding patients ability to make decisions regarding his mental and physical health. She plans on contacting legal advice on obtaining guardianship of patient. 09/16:Patient's presents similar to yesterday's presentation. Responding with brief responses. Guarded. Observed standing in one place for a long period of time, when asked what he is doing, pt stated, I don't know . Pt reports he plans on contacting his sister today and try to convince her for me to stay there . Pt denies SI/HI/VH/AH. Continue current tx plan. 09/17: brief responses. Guarded. 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 Pt denies SI/HI/VH/AH. T/W and Dr. Gonzalez spoke to patient's sister, Ros. Ros stated being [facility] and plans on finding document. She plans on coming to the hospital on Saturday to be present for [facility] intake. 09/22/2023: No changes 09/23/2023 Patient flat apathetic difficult insight and judgment his sister is healthcare proxy if needed patient is accepting medical treatment Referral to [facility] 09/24/23 Considers starting Haldol Decanoate patient is agreeable superficially difficulty with exec fx was seen [facility] 09/25/23 Pt seen in f/u mood flat dysphoric difficulty engaging in conversation preoccupied with thought he wont be living with family thing slowed apathetic no clear response with [place] ? some improvement inc lamictal start low dose sertraline inc lamictal ck tsh 09/26/2023 Start Abilify as augmentation with Haldol see if can be more stimulating regarding depressed mood apathetic limited engagement sertraline 50 mg Lamictal 25 b.i.d. referral to [facility] which would have structure unclear if patient can engage with this he remains quite depressed has delusional beliefs regarding housing and that things have been done he has repeatedly tried to reach out to his sister denies active SI needs much help dressing talking with others encouragement to eat severe thought blocking Abilify might be more stimulating than Haldol which can be more dulling 09/27/23 Abilify started sertraline Lamictal encouraged step-down to [facility] encourage reality orientation denies active SI 09/27: Continue current regimen and plans 09/28: Continue current regimen and plans. 09/30/2023 [address]erral to [facility] increase Abilify to 5 mg daily eventually try and taper Haldol sertraline 50 mg daily 10/01/2023 Increase Abilify to 10 mg lower Haldol to 7 mg continue sertraline and Lamictal 10/02/2023 Abilify increased to 10 mg continue to taper Haldol sertraline 100 mg Lamictal increased to 75 mg patient apathetic withdrawn difficulty with placement some paranoia continues difficulty with decision making at times. Not physically aggressive internally preoccupied seems somewhat improved with Abilify sertraline Continue discharge planning 10/03/2023 Patient somewhat blunted flat slowed thinking during the day times staring. Change Abilify to 10 mg at bedtime. Scheduled Haldol will lowered to 2.5 mg Continue sertraline 100 mg Namenda 5 b.i.d. 10/04/2023 . Haldol discontinued modafinil low-dose monitor for psychosis or agitation continue discharge planning 10/07/2023 May need to firm healthcare proxy calls have been placed to sister to try to help in discharge planning. Referrals made. Patient cooperative with care 10/08/2023 Pharmacy ordering Abilify maintain a increase modafinil 100 mg patient remains flat passive depressed some improvement noted no current paranoia noted continue discharge planning no current safe discharge plan 10/09/2023 Increase Lamictal 100 mg Abilify Maintena 400 mg hold modafinil unclear if was overly stimulating patient continues to present internally preoccupied. 10/10/23 Healthcare proxy invoked discharge planning continue Lamictal Abilify pending maintain a 10/11/2023 Healthcare proxy invoked new CV signed discharge planning. 10/11 keep same treatment 10/12 keep same treatment 10/14/2023 Continue plan of care Lamictal Abilify discharge planning sertraline 10/14: stable. continue current mgmt. Reason for continued inpatient stay Substantial Risk for: inability to function Time Spent With Patient Time: Total time managing care of this patient today ____ minutes.
[2023-10-15 17:47] LABS: Glucose, Whole Blood 222 mg/dL (60-115)
[2023-10-15] MEDS: metFORMIN HCl ER 500 MG TAB.ER.24H 1000 MG PO (18:03)
[2023-10-15 20:10] VITALS: BP 106/60; PULSE 78; RESP 16; TEMP 37; O2SAT 95
[2023-10-15 20:21] LABS: Glucose, Whole Blood 130 mg/dL (60-115)
[2023-10-15] MEDS: lamoTRIgine 100 MG TABLET PO (21:11)
[2023-10-15] MEDS: ARIPiprazole 10 MG TABLET PO (21:11)
[2023-10-15] MEDS: Insulin Glargine,Hum.rec.anlog 100 UNIT/ML 10 ML VIAL 20 UNIT SUBCUT (21:12)
[2023-10-16 07:45] VITALS: BP 116/63; PULSE 81; RESP 16; TEMP 36.9; O2SAT 96
[2023-10-16] MEDS: Memantine HCl 5 MG TABLET PO ×2 (09:14→21:26)
[2023-10-16] MEDS: Sertraline HCL 100 MG TABLET PO (09:14)
[2023-10-16] MEDS: Levothyroxine Sodium 200 MCG TABLET PO (09:14)
[2023-10-16 12:45] LABS: Glucose, Whole Blood 128 mg/dL (60-115)
--- NOTE | 2023-10-16 16:34 | HO.PSYCHPN ---
Subjective Subjective Date of Service: 10/16/23 Reason For Visit: paranoia cognitive impairment Interim History: no change in presentation. per staff, more social. taking meds. no issues. slept 7 hours. Mental Status Exam Mental Status Exam Patient Appearance: Appropriate Patient Orientation: Person and Situation Level of Consciousness: Awake and Appropriate Patient Behavior: Guarded and Passive Mood Description: Withdrawn Affect Description: Calm Patient Cognition Impaired: Yes Ability to Follow Directions: Good Speech Pattern: Clear 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: None Delusions: Not Present Thought Process: Distracted and Slowed Thinking Thought Content: positive for [place] and positive for Poverty of Content Judgement: Fair Diagnostics Vital Signs (24Hr): Vital Signs - 24 hr 10/15/23 20:10 10/16/23 07:45 Temperature 98.6 F 98.5 F Pulse Rate 78 81 Respiratory Rate 16 16 Blood Pressure 106/60 116/63 Pulse Oximetry 95 96 Oxygen Delivery Method Room Air Room Air BMI result Body Mass Index 31.4 Labs 09/10/23 20:00 10/11/23 08:59 Labs: Laboratory Results - last 48 hr 10/14/23 10/14/23 10/15/23 18:16 21:09 08:29 POC Glucose 123 H 233 H 128 H 10/15/23 10/15/23 10/15/23 12:41 17:37 20:16 POC Glucose 199 H 222 H 130 H 10/16/23 12:41 POC Glucose 128 H Imaging Radiology Impressions: ITS Impressions Brain MRI 09/19/23 20:33 IMPRESSION: 1. No demonstrated acute intracranial abnormalities. 2. Chronic mild to moderate nonspecific white matter changes, most notably in the deep white matter of the right frontal lobe. Mild to moderate generalized cerebral volume loss. Medications Medications Current Medications Acetaminophen (Acetaminophen 325 Mg Tablet) 650 mg PO Q6H PRN PRN Reason: Headache/Pain Mild Scale (1-3) Last Admin: 10/13/23 09:39 Dose: 650 mg Al Hydroxide/Mg Hydroxide (Magnesium Hydrox/Alum Hydrox 30 Ml Oral.Susp) 30 ml PO Q6H PRN PRN Reason: Heartburn/Nausea Aripiprazole (Aripiprazole 10 Mg Tablet) 10 mg PO BEDTIME MANAS Last Admin: 10/15/23 21:11 Dose: 10 mg Benztropine Mesylate (Benztropine Mesylate 0.5 Mg Tablet) 0.5 mg PO TID PRN PRN Reason: Extrapyramidal Effects Glucose (Glucose Gel 15 Gm Gel..Gram.) 15 gm PO Q15M PRN; Protocol PRN Reason: per Hypoglycemia Standing Ord. Hydroxyzine HCl (Hydroxyzine Hcl 25 Mg Tablet) 25 mg PO Q6H PRN PRN Reason: Anxiety Last Admin: 10/12/23 21:16 Dose: 25 mg Dextrose (D10) 250 mls @ 750 mls/hr IV Q15M PRN; Protocol PRN Reason: per Hypoglycemia Standing Ord. Insulin Glargine (Insulin Glargine,Hum.Rec.Anlog 100 Unit/Ml 10 Ml Vial) 20 unit SUBCUT BEDTIME [facility] Last Admin: 10/15/23 21:12 Dose: 20 unit Insulin Human Lispro (Insulin Lispro 100 Unit/Ml 3 Ml Vial) 0 unit SUBCUT QIDACHS [facility]; Protocol Last Admin: 10/16/23 12:44 Dose: Not Given Lamotrigine (Lamotrigine 100 Mg Tablet) 100 mg PO BEDTIME [facility] Last Admin: 10/15/23 21:11 Dose: 100 mg Levothyroxine Sodium (Levothyroxine Sodium 200 Mcg Tablet) 200 mcg PO DAILY [facility] Last Admin: 10/16/23 09:14 Dose: 200 mcg Magnesium Hydroxide (Milk Of Magnesia 30 Ml Oral.Susp) 30 ml PO DAILY PRN PRN Reason: Constipation Memantine (Memantine Hcl 5 Mg Tablet) 5 mg PO BID [facility] Last Admin: 10/16/23 09:14 Dose: 5 mg Metformin HCl (Metformin Hcl Er 500 Mg Tab.Er.24h) 1,000 mg PO DAILY@1700 [facility] Last Admin: 10/15/23 18:03 Dose: 1,000 mg Nicotine Polacrilex (Nicotine Polacrilex 2 Mg Gum) 4 mg BUCCAL Q2H PRN PRN Reason: Nicotine Cravings Sertraline HCl (Sertraline Hcl 100 Mg Tablet) 100 mg PO DAILY [facility] Last Admin: 10/16/23 09:14 Dose: 100 mg Trazodone HCl (Trazodone Hcl 50 Mg Tablet) 50 mg PO BEDTIME MRX1 PRN PRN Reason: Insomnia Last Admin: 10/14/23 21:55 Dose: 50 mg Allergies Allergies Allergy/AdvReac Type Severity Reaction Status Date / Time amoxicillin [AMOXICILLIN] Allergy Mild VOMITING/ABD Verified 09/10/23 19:44 PAIN Assessment & Plan Assessment & Plan (1) Schizoaffective disorder: Status: Acute Code(s): F25.9 - Schizoaffective disorder, unspecified (2) Hypothyroidism: Status: Acute Code(s): E03.9 - Hypothyroidism, unspecified (3) Type 2 diabetes mellitus: Status: Acute Code(s): E11.9 - Type 2 diabetes mellitus without complications Plan Patient is a 58 year old male with hx of Schizoaffective d/o and hypothyroid disorder/thyroid coma, stroke and brain aneurysm, who was brought to [facility] ER on a Section 12 d/t disorganized behavior, concern for his memory impairment, medications noncompliance and poor ADLs. Plan: CV 15 minute safety checks Continue home medications: Haldol 10mg PO daily Synthroid 200mcg PO daily Obtain labs; A1C/POCs Obtain collateral from sister Obtain records from last hospitalization. MOCA Referral for DMH services if patient is agreeable. encourage medication compliance;consider VARGAS discharge planning 09/11: Elevated fasting blood sugar elevated hemoglobin A1c 9.2 med consult placed put in point of care needed will start metformin Would benefit from clarity over recent hospitalization what this were done details regarding treatment continue Haldol unclear if patient has Healthcare proxy his [place] was low slowed cognition with poor details in depth at times during blankly regarding making judgments Unclear if any of this relates to past coma or 2 hypothyroidism. He does seem more impaired than when last seen unclear when last imaging was. Continue Haldol sitter neuro indira involvement regarding diagnostic picture. Patient does remain paranoid blunted suspicious apathetic. He might benefit from longer-term placement if available and appropriate at a later time involved DMH involvement would be quite helpful 09/12: cont haldol get records ? hcp ? start antidep unclear hx 09/13: Keeping to self. More talkative today. Pt concerned he will be transferred to [facility]. Pt stated, The paper I signed yesterday. Are you going to send me back to the last hospital? That place was horrible . Pt was educated he signed a release of information with Dr. Gonzalez to obtain records from [facility]. Pt was given a copy of the release he signed. Despite this, pt continues to be anxious about being transferred. Pt denies SI/HI/VH/AH. 07/14: Keeping to self. active on unit. showered. Pt reports feeling alright today; pt reports he is worried about where I'm going to go . Pt continues concerned he will be transferred to [facility]. Pt denies SI/HI/VH/AH. 09/15:Pt reports feeling alright today; pt continues to report he is worried about where I'm going to go . Responding with brief responses. Guarded. Observed standing in one place for a long period of time. Appears confused. Pt denies SI/HI/VH/AH. T/W spoke to patient's sister, Ros, with patients verbal consent. Ros reports concerns regarding patients ability to make decisions regarding his mental and physical health. She plans on contacting legal advice on obtaining guardianship of patient. 09/16:Patient's presents similar to yesterday's presentation. Responding with brief responses. Guarded. Observed standing in one place for a long period of time, when asked what he is doing, pt stated, I don't know . Pt reports he plans on contacting his sister today and try to convince her for me to stay there . Pt denies SI/HI/VH/AH. Continue current tx plan. 09/17: brief responses. Guarded. 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 Pt denies SI/HI/VH/AH. T/W and Dr. Gonzalez spoke to patient's sister, Ros. Ros stated being [facility] and plans on finding document. She plans on coming to the hospital on Saturday to be present for [facility] intake. 09/22/2023: No changes 09/23/2023 Patient flat apathetic difficult insight and judgment his sister is healthcare proxy if needed patient is accepting medical treatment Referral to [facility] 09/24/23 Considers starting Haldol Decanoate patient is agreeable superficially difficulty with exec fx was seen [facility] 09/25/23 Pt seen in f/u mood flat dysphoric difficulty engaging in conversation preoccupied with thought he wont be living with family thing slowed apathetic no clear response with namenda ? some improvement inc lamictal start low dose sertraline inc lamictal ck tsh 09/26/2023 Start Abilify as augmentation with Haldol see if can be more stimulating regarding depressed mood apathetic limited engagement sertraline 50 mg Lamictal 25 b.i.d. referral to [facility] which would have structure unclear if patient can engage with this he remains quite depressed has delusional beliefs regarding housing and that things have been done he has repeatedly tried to reach out to his sister denies active SI needs much help dressing talking with others encouragement to eat severe thought blocking Abilify might be more stimulating than Haldol which can be more dulling 09/27/23 Abilify started sertraline Lamictal encouraged step-down to [facility] encourage reality orientation denies active SI 09/27: Continue current regimen and plans 09/28: Continue current regimen and plans. 09/30/2023 Referral to [facility] increase Abilify to 5 mg daily eventually try and taper Haldol sertraline 50 mg daily 10/01/2023 Increase Abilify to 10 mg lower Haldol to 7 mg continue sertraline and Lamictal 10/02/2023 Abilify increased to 10 mg continue to taper Haldol sertraline 100 mg Lamictal increased to 75 mg patient apathetic withdrawn difficulty with placement some paranoia continues difficulty with decision making at times. Not physically aggressive internally preoccupied seems somewhat improved with Abilify sertraline Continue discharge planning 10/03/2023 Patient somewhat blunted flat slowed thinking during the day times staring. Change Abilify to 10 mg at bedtime. Scheduled Haldol will lowered to 2.5 mg Continue sertraline 100 mg Namenda 5 b.i.d. 10/04/2023 . Haldol discontinued modafinil low-dose monitor for psychosis or agitation continue discharge planning 10/07/2023 May need to firm healthcare proxy calls have been placed to sister to try to help in discharge planning. Referrals made. Patient cooperative with care 10/08/2023 Pharmacy ordering Abilify maintain a increase modafinil 100 mg patient remains flat passive depressed some improvement noted no current paranoia noted continue discharge planning no current safe discharge plan 10/09/2023 Increase Lamictal 100 mg Abilify Maintena 400 mg hold modafinil unclear if was overly stimulating patient continues to present internally preoccupied. 10/10/23 Healthcare proxy invoked discharge planning continue Lamictal Abilify pending maintain a 10/11/2023 Healthcare proxy invoked new CV signed discharge planning. 10/11 keep same treatment 10/12 keep same treatment 10/14/2023 Continue plan of care Lamictal Abilify discharge planning sertraline 10/14: stable. continue current mgmt. 10/15: stable. continue current mgmt. Reason for continued inpatient stay Substantial Risk for: inability to function and rapid decompensation Time Spent With Patient Time: Total time managing care of this patient today ____ minutes.
[2023-10-16 17:42] LABS: Glucose, Whole Blood 180 mg/dL (60-115)
[2023-10-16] MEDS: metFORMIN HCl ER 500 MG TAB.ER.24H 1000 MG PO (18:13)
[2023-10-16] MEDS: Insulin Lispro 100 UNIT/ML 3 ML VIAL SUBCUT ×2 (18:14→21:27)
[2023-10-16 20:00] VITALS: BP 123/65; PULSE 82; RESP 15; TEMP 36.8; O2SAT 97
[2023-10-16] MEDS: lamoTRIgine 100 MG TABLET PO (21:26)
[2023-10-16] MEDS: ARIPiprazole 10 MG TABLET PO (21:26)
[2023-10-16] MEDS: Insulin Glargine,Hum.rec.anlog 100 UNIT/ML 10 ML VIAL 20 UNIT SUBCUT (21:28)
[2023-10-17 00:16] LABS: Glucose, Whole Blood 170 mg/dL (60-115)
[2023-10-17 07:00] VITALS: BMI 31.3
[2023-10-17 08:00] VITALS: BP 121/73; PULSE 82; RESP 14; TEMP 36.9; O2SAT 95
[2023-10-17 08:45] LABS: Glucose, Whole Blood 119 mg/dL (60-115)
[2023-10-17] MEDS: Memantine HCl 5 MG TABLET PO ×2 (09:07→21:45)
[2023-10-17] MEDS: Sertraline HCL 100 MG TABLET PO (09:07)
[2023-10-17 09:27] LABS: Creatinine Clr Calc Pharmacy 107.7; Estimated Glomerular Filt Rate > 60
[2023-10-17] MEDS: Levothyroxine Sodium 200 MCG TABLET PO (09:59)
[2023-10-17 12:35] LABS: Glucose, Whole Blood 136 mg/dL (60-115)
[2023-10-17] MEDS: metFORMIN HCl ER 500 MG TAB.ER.24H 1000 MG PO (17:23)
[2023-10-17 17:48] LABS: Glucose, Whole Blood 137 mg/dL (60-115)
[2023-10-17 20:00] VITALS: BP 123/71; PULSE 79; RESP 16; TEMP 36.9; O2SAT 97
--- NOTE | 2023-10-17 21:01 | P.PNPSI_ITS ---
Subjective Subjective Date of Service: 10/17/23 Reason For Visit: paranoia cognitive impairment Interim History: no change in presentation. calm, slowed, pleasant. no complaints or requests. per staff, no dep/anx. flat, visible. taking meds. more spontaneous than prior. brighter, social. no SI/HI/AVH. Mental Status Exam Mental Status Exam Patient Appearance: Appropriate Patient Orientation: Person and Situation Level of Consciousness: Awake and Appropriate Patient Behavior: Guarded and Passive Mood Description: Withdrawn Affect Description: Calm Patient Cognition Impaired: Yes Ability to Follow Directions: Good Speech Pattern: Clear 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: None Delusions: Not Present Thought Process: Distracted and Slowed Thinking Thought Content: positive for [place] and positive for Poverty of Content Judgement: Fair Diagnostics Vital Signs (24Hr): Vital Signs - 24 hr 10/17/23 08:00 Temperature 98.5 F Pulse Rate 82 Respiratory Rate 14 Blood Pressure 121/73 Pulse Oximetry 95 Oxygen Delivery Method Room Air BMI result Body Mass Index 31.3 Labs 09/10/23 20:00 10/17/23 08:49 Labs: Laboratory Results - last 48 hr 10/16/23 10/16/23 10/16/23 12:41 17:37 20:32 Creatinine Estim Creat Clear Calc Estimated GFR POC Glucose 128 H 180 H 170 H 10/17/23 10/17/23 10/17/23 08:30 08:49 12:28 Creatinine 0.85 Estim Creat Clear Calc 107.7 Estimated GFR > 60 POC Glucose 119 H 136 H 10/17/23 17:44 Creatinine Estim Creat Clear Calc Estimated GFR POC Glucose 137 H Imaging Radiology Impressions: ITS Impressions Brain MRI 09/19/23 20:33 IMPRESSION: 1. No demonstrated acute intracranial abnormalities. 2. Chronic mild to moderate nonspecific white matter changes, most notably in the deep white matter of the right frontal lobe. Mild to moderate generalized cerebral volume loss. Medications Medications Current Medications Acetaminophen (Acetaminophen 325 Mg Tablet) 650 mg PO Q6H PRN PRN Reason: Headache/Pain Mild Scale (1-3) Last Admin: 10/13/23 09:39 Dose: 650 mg Al Hydroxide/Mg Hydroxide (Magnesium Hydrox/Alum Hydrox 30 Ml Oral.Susp) 30 ml PO Q6H PRN PRN Reason: Heartburn/Nausea Aripiprazole (Aripiprazole 10 Mg Tablet) 10 mg PO BEDTIME MANAS Last Admin: 10/16/23 21:26 Dose: 10 mg Benztropine Mesylate (Benztropine Mesylate 0.5 Mg Tablet) 0.5 mg PO TID PRN PRN Reason: Extrapyramidal Effects Glucose (Glucose Gel 15 Gm Gel..Gram.) 15 gm PO Q15M PRN; Protocol PRN Reason: per Hypoglycemia Standing Ord. Hydroxyzine HCl (Hydroxyzine Hcl 25 Mg Tablet) 25 mg PO Q6H PRN PRN Reason: Anxiety Last Admin: 10/12/23 21:16 Dose: 25 mg Dextrose (D10) 250 mls @ 750 mls/hr IV Q15M PRN; Protocol PRN Reason: per Hypoglycemia Standing Ord. Insulin Glargine (Insulin Glargine,Hum.Rec.Anlog 100 Unit/Ml 10 Ml Vial) 20 unit SUBCUT BEDTIME [facility] Last Admin: 10/16/23 21:28 Dose: 20 unit Insulin Human Lispro (Insulin Lispro 100 Unit/Ml 3 Ml Vial) 0 unit SUBCUT QIDACHS [facility]; Protocol Last Admin: 10/17/23 17:54 Dose: Not Given Lamotrigine (Lamotrigine 100 Mg Tablet) 100 mg PO BEDTIME [facility] Last Admin: 10/16/23 21:26 Dose: 100 mg Levothyroxine Sodium (Levothyroxine Sodium 200 Mcg Tablet) 200 mcg PO DAILY [facility] Last Admin: 10/17/23 09:59 Dose: 200 mcg Magnesium Hydroxide (Milk Of Magnesia 30 Ml Oral.Susp) 30 ml PO DAILY PRN PRN Reason: Constipation Memantine (Memantine Hcl 5 Mg Tablet) 5 mg PO BID [facility] Last Admin: 10/17/23 09:07 Dose: 5 mg Metformin HCl (Metformin Hcl Er 500 Mg Tab.Er.24h) 1,000 mg PO DAILY@1700 [facility] Last Admin: 10/17/23 17:23 Dose: 1,000 mg Nicotine Polacrilex (Nicotine Polacrilex 2 Mg Gum) 4 mg BUCCAL Q2H PRN PRN Reason: Nicotine Cravings Sertraline HCl (Sertraline Hcl 100 Mg Tablet) 100 mg PO DAILY [facility] Last Admin: 10/17/23 09:07 Dose: 100 mg Trazodone HCl (Trazodone Hcl 50 Mg Tablet) 50 mg PO BEDTIME MRX1 PRN PRN Reason: Insomnia Last Admin: 10/14/23 21:55 Dose: 50 mg Allergies Allergies Allergy/AdvReac Type Severity Reaction Status Date / Time amoxicillin [AMOXICILLIN] Allergy Mild VOMITING/ABD Verified 09/10/23 19:44 PAIN Assessment & Plan Assessment & Plan (1) Schizoaffective disorder: Status: Acute Code(s): F25.9 - Schizoaffective disorder, unspecified (2) Hypothyroidism: Status: Acute Code(s): E03.9 - Hypothyroidism, unspecified (3) Type 2 diabetes mellitus: Status: Acute Code(s): E11.9 - Type 2 diabetes mellitus without complications Plan Patient is a 58 year old male with hx of Schizoaffective d/o and hypothyroid disorder/thyroid coma, stroke and brain aneurysm, who was brought to [facility] ER on a Section 12 d/t disorganized behavior, concern for his memory impairment, medications noncompliance and poor ADLs. Plan: CV 15 minute safety checks Continue home medications: Haldol 10mg PO daily Synthroid 200mcg PO daily Obtain labs; A1C/POCs Obtain collateral from sister Obtain records from last hospitalization. MOCA Referral for DMH services if patient is agreeable. encourage medication compliance;consider VARGAS discharge planning 09/11: Elevated fasting blood sugar elevated hemoglobin A1c 9.2 med consult placed put in point of care needed will start metformin Would benefit from clarity over recent hospitalization what this were done details regarding treatment continue Haldol unclear if patient has Healthcare proxy his [place] was low slowed cognition with poor details in depth at times during blankly regarding making judgments Unclear if any of this relates to past coma or 2 hypothyroidism. He does seem more impaired than when last seen unclear when last imaging was. Continue Haldol sitter neuro indira involvement regarding diagnostic picture. Patient does remain paranoid blunted suspicious apathetic. He might benefit from longer- term placement if available and appropriate at a later time involved DMH involvement would be quite helpful 09/12: cont haldol get records ? hcp ? start antidep unclear hx 09/13: Keeping to self. More talkative today. Pt concerned he will be transferred to [facility]. Pt stated, The paper I signed yesterday. Are you going to send me back to the last hospital? That place was horrible . Pt was educated he signed a release of information with Dr. Gonzalez to obtain records from [facility]. Pt was given a copy of the release he signed. Despite this, pt continues to be anxious about being transferred. Pt denies SI/HI/VH/AH. 09/14: Keeping to self. active on unit. showered. Pt reports feeling alright today; pt reports he is worried about where I'm going to go . Pt continues concerned he will be transferred to [facility]. Pt denies SI/HI/VH/AH. 09/15:Pt reports feeling alright today; pt continues to report he is worried about where I'm going to go . Responding with brief responses. Guarded. Observed standing in one place for a long period of time. Appears confused. Pt denies SI/HI/VH/AH. T/W spoke to patient's sister, Ros, with patients verbal consent. Ros reports concerns regarding patients ability to make decisions regarding his mental and physical health. She plans on contacting legal advice on obtaining guardianship of patient. 09/16:Patient's presents similar to yesterday's presentation. Responding with brief responses. Guarded. Observed standing in one place for a long period of time, when asked what he is doing, pt stated, I don't know . Pt reports he plans on contacting his sister today and try to convince her for me to stay there . Pt denies SI/HI/VH/AH. Continue current tx plan. 09/17: brief responses. Guarded. 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 Pt denies SI/HI/VH/AH. T/W and Dr. Gonzalez spoke to patient's sister, Ros. Ros stated being [facility] and plans on finding document. She plans on coming to the hospital on Saturday to be present for [facility] intake. 09/22/2023: No changes 09/23/2023 Patient flat apathetic difficult insight and judgment his sister is healthcare proxy if needed patient is accepting medical treatment Referral to [facility] 09/24/23 Considers starting Haldol Decanoate patient is agreeable superficially difficulty with exec fx was seen [facility] 09/25/23 Pt seen in f/u mood flat dysphoric difficulty engaging in conversation preoccupied with thought he wont be living with family thing slowed apathetic no clear response with namenda ? some improvement inc lamictal start low dose sertraline inc lamictal ck tsh 09/26/2023 Start Abilify as augmentation with Haldol see if can be more stimulating regarding depressed mood apathetic limited engagement sertraline 50 mg Lamictal 25 b.i.d. referral to [facility] which would have structure unclear if patient can engage with this he remains quite depressed has delusional beliefs regarding housing and that things have been done he has repeatedly tried to reach out to his sister denies active SI needs much help dressing talking with others encouragement to eat severe thought blocking Abilify might be more stimulating than Haldol which can be more dulling 09/27/23 Abilify started sertraline Lamictal encouraged step-down to [facility] encourage reality orientation denies active SI 09/27: Continue current regimen and plans 09/28: Continue current regimen and plans. 09/30/2023 [address]erral to [facility] increase Abilify to 5 mg daily eventually try and taper Haldol sertraline 50 mg daily 10/01/2023 Increase Abilify to 10 mg lower Haldol to 7 mg continue sertraline and Lamictal 10/02/2023 Abilify increased to 10 mg continue to taper Haldol sertraline 100 mg Lamictal increased to 75 mg patient apathetic withdrawn difficulty with placement some paranoia continues difficulty with decision making at times. Not physically aggressive internally preoccupied seems somewhat improved with Abilify sertraline Continue discharge planning 10/03/2023 Patient somewhat blunted flat slowed thinking during the day times staring. Change Abilify to 10 mg at bedtime. Scheduled Haldol will lowered to 2.5 mg Continue sertraline 100 mg Namenda 5 b.i.d. 10/04/2023 . Haldol discontinued modafinil low-dose monitor for psychosis or agitation continue discharge planning 10/07/2023 May need to firm healthcare proxy calls have been placed to sister to try to help in discharge planning. Referrals made. Patient cooperative with care 10/08/2023 Pharmacy ordering Abilify maintain a increase modafinil 100 mg patient remains flat passive depressed some improvement noted no current paranoia noted continue discharge planning no current safe discharge plan 10/09/2023 Increase Lamictal 100 mg Abilify Maintena 400 mg hold modafinil unclear if was overly stimulating patient continues to present internally preoccupied. 10/10/23 Healthcare proxy invoked discharge planning continue Lamictal Abilify pending maintain a 10/11/2023 Healthcare proxy invoked new CV signed discharge planning. 10/11 keep same treatment 10/12 keep same treatment 10/14/2023 Continue plan of care Lamictal Abilify discharge planning sertraline 10/14: stable. continue current mgmt. 10/15: stable. continue current mgmt. 10/16: stable presentation. continue current mgmt. Reason for continued inpatient stay Substantial Risk for: inability to function and rapid decompensation Time Spent With Patient Time: Total time managing care of this patient today ____ minutes.
[2023-10-17 21:10] LABS: Glucose, Whole Blood 204 mg/dL (60-115)
[2023-10-17] MEDS: Insulin Lispro 100 UNIT/ML 3 ML VIAL SUBCUT (21:43)
[2023-10-17] MEDS: Insulin Glargine,Hum.rec.anlog 100 UNIT/ML 10 ML VIAL 20 UNIT SUBCUT (21:44)
[2023-10-17] MEDS: hydrOXYzine HCL 25 MG TABLET PO (21:45)
[2023-10-17] MEDS: lamoTRIgine 100 MG TABLET PO (21:45)
[2023-10-17] MEDS: traZODone HCL 50 MG TABLET PO (21:45)
[2023-10-17] MEDS: ARIPiprazole 10 MG TABLET PO (21:45)
[2023-10-18 07:55] VITALS: BP 118/67; PULSE 77; RESP 14; TEMP 36.5; O2SAT 95
[2023-10-18] MEDS: Sertraline HCL 100 MG TABLET PO (09:08)
[2023-10-18] MEDS: Memantine HCl 5 MG TABLET PO ×2 (09:08→21:55)
[2023-10-18] MEDS: Levothyroxine Sodium 200 MCG TABLET PO (09:08)
[2023-10-18 11:32] LABS: Glucose, Whole Blood 140 mg/dL (60-115)
[2023-10-18 12:43] LABS: Glucose, Whole Blood 137 mg/dL (60-115)
[2023-10-18 17:49] LABS: Glucose, Whole Blood 136 mg/dL (60-115)
[2023-10-18] MEDS: metFORMIN HCl ER 500 MG TAB.ER.24H 1000 MG PO (18:03)
--- NOTE | 2023-10-18 18:06 | HO.PSYCHPN ---
Subjective Subjective Date of Service: 10/18/23 Reason For Visit: paranoia cognitive impairment Interim History: no change in presentation. per staff, no change in presentation. Mental Status Exam Mental Status Exam Patient Appearance: Appropriate Patient Orientation: Person and Situation Level of Consciousness: Awake and Appropriate Patient Behavior: Guarded and Passive Mood Description: Withdrawn Affect Description: Calm Patient Cognition Impaired: Yes Ability to Follow Directions: Good Speech Pattern: Clear 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: None Delusions: Not Present Thought Process: Distracted and Slowed Thinking Thought Content: positive for [place] and positive for Poverty of Content Judgement: Fair Diagnostics Vital Signs (24Hr): Vital Signs - 24 hr 10/17/23 20:00 10/18/23 07:55 Temperature 98.5 F 97.7 F Pulse Rate 79 77 Respiratory Rate 16 14 Blood Pressure 123/71 118/67 Pulse Oximetry 97 95 Oxygen Delivery Method Room Air Room Air BMI result Body Mass Index 31.3 Labs 09/10/23 20:00 10/17/23 08:49 Labs: Laboratory Results - last 48 hr 10/16/23 10/17/23 10/17/23 20:32 08:30 08:49 Creatinine 0.85 Estim Creat Clear Calc 107.7 Estimated GFR > 60 POC Glucose 170 H 119 H 10/17/23 10/17/23 10/17/23 12:28 17:44 21:05 Creatinine Estim Creat Clear Calc Estimated GFR POC Glucose 136 H 137 H 204 H 10/18/23 10/18/23 10/18/23 08:53 12:38 17:44 Creatinine Estim Creat Clear Calc Estimated GFR POC Glucose 140 H 137 H 136 H Imaging Radiology Impressions: ITS Impressions Brain MRI 09/19/23 20:33 IMPRESSION: 1. No demonstrated acute intracranial abnormalities. 2. Chronic mild to moderate nonspecific white matter changes, most notably in the deep white matter of the right frontal lobe. Mild to moderate generalized cerebral volume loss. Medications Medications Current Medications Acetaminophen (Acetaminophen 325 Mg Tablet) 650 mg PO Q6H PRN PRN Reason: Headache/Pain Mild Scale (1-3) Last Admin: 10/13/23 09:39 Dose: 650 mg Al Hydroxide/Mg Hydroxide (Magnesium Hydrox/Alum Hydrox 30 Ml Oral.Susp) 30 ml PO Q6H PRN PRN Reason: Heartburn/Nausea Aripiprazole (Aripiprazole 10 Mg Tablet) 10 mg PO BEDTIME MANAS Last Admin: 10/17/23 21:45 Dose: 10 mg Benztropine Mesylate (Benztropine Mesylate 0.5 Mg Tablet) 0.5 mg PO TID PRN PRN Reason: Extrapyramidal Effects Glucose (Glucose Gel 15 Gm Gel..Gram.) 15 gm PO Q15M PRN; Protocol PRN Reason: per Hypoglycemia Standing Ord. Hydroxyzine HCl (Hydroxyzine Hcl 25 Mg Tablet) 25 mg PO Q6H PRN PRN Reason: Anxiety Last Admin: 10/17/23 21:45 Dose: 25 mg Dextrose (D10) 250 mls @ 750 mls/hr IV Q15M PRN; Protocol PRN Reason: per Hypoglycemia Standing Ord. Insulin Glargine (Insulin Glargine,Hum.Rec.Anlog 100 Unit/Ml 10 Ml Vial) 20 unit SUBCUT BEDTIME [facility] Last Admin: 10/17/23 21:44 Dose: 20 unit Insulin Human Lispro (Insulin Lispro 100 Unit/Ml 3 Ml Vial) 0 unit SUBCUT QIDACHS [facility]; Protocol Last Admin: 10/18/23 18:03 Dose: Not Given Lamotrigine (Lamotrigine 100 Mg Tablet) 100 mg PO BEDTIME [facility] Last Admin: 10/17/23 21:45 Dose: 100 mg Levothyroxine Sodium (Levothyroxine Sodium 200 Mcg Tablet) 200 mcg PO DAILY [facility] Last Admin: 10/18/23 09:08 Dose: 200 mcg Magnesium Hydroxide (Milk Of Magnesia 30 Ml Oral.Susp) 30 ml PO DAILY PRN PRN Reason: Constipation Memantine (Memantine Hcl 5 Mg Tablet) 5 mg PO BID [facility] Last Admin: 10/18/23 09:08 Dose: 5 mg Metformin HCl (Metformin Hcl Er 500 Mg Tab.Er.24h) 1,000 mg PO DAILY@1700 [facility] Last Admin: 10/18/23 18:03 Dose: 1,000 mg Nicotine Polacrilex (Nicotine Polacrilex 2 Mg Gum) 4 mg BUCCAL Q2H PRN PRN Reason: Nicotine Cravings Sertraline HCl (Sertraline Hcl 100 Mg Tablet) 100 mg PO DAILY [facility] Last Admin: 10/18/23 09:08 Dose: 100 mg Trazodone HCl (Trazodone Hcl 50 Mg Tablet) 50 mg PO BEDTIME MRX1 PRN PRN Reason: Insomnia Last Admin: 10/17/23 21:45 Dose: 50 mg Allergies Allergies Allergy/AdvReac Type Severity Reaction Status Date / Time amoxicillin [AMOXICILLIN] Allergy Mild VOMITING/ABD Verified 09/10/23 19:44 PAIN Assessment & Plan Assessment & Plan (1) Schizoaffective disorder: Status: Acute Code(s): F25.9 - Schizoaffective disorder, unspecified (2) Hypothyroidism: Status: Acute Code(s): E03.9 - Hypothyroidism, unspecified (3) Type 2 diabetes mellitus: Status: Acute Code(s): E11.9 - Type 2 diabetes mellitus without complications Plan Patient is a 58 year old male with hx of Schizoaffective d/o and hypothyroid disorder/thyroid coma, stroke and brain aneurysm, who was brought to [facility] ER on a Section 12 d/t disorganized behavior, concern for his memory impairment, medications noncompliance and poor ADLs. Plan: CV 15 minute safety checks Continue home medications: Haldol 10mg PO daily Synthroid 200mcg PO daily Obtain labs; A1C/POCs Obtain collateral from sister Obtain records from last hospitalization. MOCA Referral for DMH services if patient is agreeable. encourage medication compliance;consider VARGAS discharge planning 09/11: Elevated fasting blood sugar elevated hemoglobin A1c 9.2 med consult placed put in point of care needed will start metformin Would benefit from clarity over recent hospitalization what this were done details regarding treatment continue Haldol unclear if patient has Healthcare proxy his [place] was low slowed cognition with poor details in depth at times during blankly regarding making judgments Unclear if any of this relates to past coma or 2 hypothyroidism. He does seem more impaired than when last seen unclear when last imaging was. Continue Haldol sitter neuro indira involvement regarding diagnostic picture. Patient does remain paranoid blunted suspicious apathetic. He might benefit from longer-term placement if available and appropriate at a later time involved DMH involvement would be quite helpful 09/12: cont haldol get records ? hcp ? start antidep unclear hx 09/13: Keeping to self. More talkative today. Pt concerned he will be transferred to [facility]. Pt stated, The paper I signed yesterday. Are you going to send me back to the last hospital? That place was horrible . Pt was educated he signed a release of information with Dr. Gonzalez to obtain records from [facility]. Pt was given a copy of the release he signed. Despite this, pt continues to be anxious about being transferred. Pt denies SI/HI/VH/AH. 09/14: Keeping to self. active on unit. showered. Pt reports feeling alright today; pt reports he is worried about where I'm going to go . Pt continues concerned he will be transferred to [facility]. Pt denies SI/HI/VH/AH. 09/15:Pt reports feeling alright today; pt continues to report he is worried about where I'm going to go . Responding with brief responses. Guarded. Observed standing in one place for a long period of time. Appears confused. Pt denies SI/HI/VH/AH. T/W spoke to patient's sister, Ros, with patients verbal consent. Ros reports concerns regarding patients ability to make decisions regarding his mental and physical health. She plans on contacting legal advice on obtaining guardianship of patient. 09/16:Patient's presents similar to yesterday's presentation. Responding with brief responses. Guarded. Observed standing in one place for a long period of time, when asked what he is doing, pt stated, I don't know . Pt reports he plans on contacting his sister today and try to convince her for me to stay there . Pt denies SI/HI/VH/AH. Continue current tx plan. 09/17: brief responses. Guarded. 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 Pt denies SI/HI/VH/AH. T/W and Dr. Gonzalez spoke to patient's sister, Ros. Ros stated being [facility] and plans on finding document. She plans on coming to the hospital on Saturday to be present for [facility] intake. 09/22/2023: No changes 09/23/2023 Patient flat apathetic difficult insight and judgment his sister is healthcare proxy if needed patient is accepting medical treatment Referral to [facility] 09/24/23 Considers starting Haldol Decanoate patient is agreeable superficially difficulty with exec fx was seen [facility] 09/25/23 Pt seen in f/u mood flat dysphoric difficulty engaging in conversation preoccupied with thought he wont be living with family thing slowed apathetic no clear response with namenda ? some improvement inc lamictal start low dose sertraline inc lamictal ck tsh 09/26/2023 Start Abilify as augmentation with Haldol see if can be more stimulating regarding depressed mood apathetic limited engagement sertraline 50 mg Lamictal 25 b.i.d. referral to [facility] which would have structure unclear if patient can engage with this he remains quite depressed has delusional beliefs regarding housing and that things have been done he has repeatedly tried to reach out to his sister denies active SI needs much help dressing talking with others encouragement to eat severe thought blocking Abilify might be more stimulating than Haldol which can be more dulling 09/27/23 Abilify started sertraline Lamictal encouraged step-down to [facility] encourage reality orientation denies active SI 09/27: Continue current regimen and plans 09/28: Continue current regimen and plans. 09/30/2023 Referral to [facility] increase Abilify to 5 mg daily eventually try and taper Haldol sertraline 50 mg daily 10/01/2023 Increase Abilify to 10 mg lower Haldol to 7 mg continue sertraline and Lamictal 10/02/2023 Abilify increased to 10 mg continue to taper Haldol sertraline 100 mg Lamictal increased to 75 mg patient apathetic withdrawn difficulty with placement some paranoia continues difficulty with decision making at times. Not physically aggressive internally preoccupied seems somewhat improved with Abilify sertraline Continue discharge planning 10/03/2023 Patient somewhat blunted flat slowed thinking during the day times staring. Change Abilify to 10 mg at bedtime. Scheduled Haldol will lowered to 2.5 mg Continue sertraline 100 mg Namenda 5 b.i.d. 10/04/2023 . Haldol discontinued modafinil low-dose monitor for psychosis or agitation continue discharge planning 10/07/2023 May need to firm healthcare proxy calls have been placed to sister to try to help in discharge planning. Referrals made. Patient cooperative with care 10/08/2023 Pharmacy ordering Abilify maintain a increase modafinil 100 mg patient remains flat passive depressed some improvement noted no current paranoia noted continue discharge planning no current safe discharge plan 10/09/2023 Increase Lamictal 100 mg Abilify Maintena 400 mg hold modafinil unclear if was overly stimulating patient continues to present internally preoccupied. 10/10/23 Healthcare proxy invoked discharge planning continue Lamictal Abilify pending maintain a 10/11/2023 Healthcare proxy invoked new CV signed discharge planning. 10/11 keep same treatment 10/12 keep same treatment 10/14/2023 Continue plan of care Lamictal Abilify discharge planning sertraline 10/14: stable. continue current mgmt. 10/15: stable. continue current mgmt. 10/16: stable presentation. continue current mgmt. 10/17: as for yesterday. Reason for continued inpatient stay Substantial Risk for: inability to function and rapid decompensation Time Spent With Patient Time: Total time managing care of this patient today ____ minutes.
[2023-10-18 19:14] VITALS: BP 118/63; PULSE 92; RESP 14; TEMP 36.7; O2SAT 98
[2023-10-18 21:37] LABS: Glucose, Whole Blood 220 mg/dL (60-115)
[2023-10-18] MEDS: hydrOXYzine HCL 25 MG TABLET PO (21:55)
[2023-10-18] MEDS: Insulin Lispro 100 UNIT/ML 3 ML VIAL SUBCUT (21:55)
[2023-10-18] MEDS: lamoTRIgine 100 MG TABLET PO (21:55)
[2023-10-18] MEDS: ARIPiprazole 10 MG TABLET PO (21:55)
[2023-10-18] MEDS: traZODone HCL 50 MG TABLET PO (21:55)
[2023-10-18] MEDS: Insulin Glargine,Hum.rec.anlog 100 UNIT/ML 10 ML VIAL 20 UNIT SUBCUT (21:57)
[2023-10-19 08:44] LABS: Glucose, Whole Blood 113 mg/dL (60-115)
[2023-10-19] MEDS: Levothyroxine Sodium 200 MCG TABLET PO (09:14)
[2023-10-19] MEDS: Sertraline HCL 100 MG TABLET PO (09:14)
[2023-10-19] MEDS: Memantine HCl 5 MG TABLET PO ×2 (09:14→21:55)
[2023-10-19 13:08] LABS: Glucose, Whole Blood 131 mg/dL (60-115)
--- NOTE | 2023-10-19 17:37 | P.PNPSI_ITS ---
Subjective Subjective Date of Service: 10/19/23 Reason For Visit: paranoia cognitive impairment Interim History: no change in presentation. per staff, no issues or changes. Mental Status Exam Mental Status Exam Patient Appearance: Appropriate Patient Orientation: Person and Situation Level of Consciousness: Awake and Appropriate Patient Behavior: Guarded and Passive Mood Description: Withdrawn Affect Description: Calm Patient Cognition Impaired: Yes Ability to Follow Directions: Good Speech Pattern: Clear 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: None Delusions: Not Present Thought Process: Distracted and Slowed Thinking Thought Content: positive for [place] and positive for Poverty of Content Judgement: Fair Diagnostics Vital Signs (24Hr): Vital Signs - 24 hr 10/18/23 19:14 Temperature 98.0 F Pulse Rate 92 Respiratory Rate 14 Blood Pressure 118/63 Pulse Oximetry 98 Oxygen Delivery Method Room Air BMI result Body Mass Index 31.3 Labs 09/10/23 20:00 10/17/23 08:49 Labs: Laboratory Results - last 48 hr 10/17/23 10/17/23 10/18/23 17:44 21:05 08:53 POC Glucose 137 H 204 H 140 H 10/18/23 10/18/23 10/18/23 12:38 17:44 21:32 POC Glucose 137 H 136 H 220 H 10/19/23 10/19/23 08:39 13:04 POC Glucose 113 131 H Imaging Radiology Impressions: ITS Impressions Brain MRI 09/19/23 20:33 IMPRESSION: 1. No demonstrated acute intracranial abnormalities. 2. Chronic mild to moderate nonspecific white matter changes, most notably in the deep white matter of the right frontal lobe. Mild to moderate generalized cerebral volume loss. Medications Medications Current Medications Acetaminophen (Acetaminophen 325 Mg Tablet) 650 mg PO Q6H PRN PRN Reason: Headache/Pain Mild Scale (1-3) Last Admin: 10/13/23 09:39 Dose: 650 mg Al Hydroxide/Mg Hydroxide (Magnesium Hydrox/Alum Hydrox 30 Ml Oral.Susp) 30 ml PO Q6H PRN PRN Reason: Heartburn/Nausea Aripiprazole (Aripiprazole 10 Mg Tablet) 10 mg PO BEDTIME MANAS Last Admin: 10/18/23 21:55 Dose: 10 mg Benztropine Mesylate (Benztropine Mesylate 0.5 Mg Tablet) 0.5 mg PO TID PRN PRN Reason: Extrapyramidal Effects Glucose (Glucose Gel 15 Gm Gel..Gram.) 15 gm PO Q15M PRN; Protocol PRN Reason: per Hypoglycemia Standing Ord. Hydroxyzine HCl (Hydroxyzine Hcl 25 Mg Tablet) 25 mg PO Q6H PRN PRN Reason: Anxiety Last Admin: 10/18/23 21:55 Dose: 25 mg Dextrose (D10) 250 mls @ 750 mls/hr IV Q15M PRN; Protocol PRN Reason: per Hypoglycemia Standing Ord. Insulin Glargine (Insulin Glargine,Hum.Rec.Anlog 100 Unit/Ml 10 Ml Vial) 20 unit SUBCUT BEDTIME [facility] Last Admin: 10/18/23 21:57 Dose: 20 unit Insulin Human Lispro (Insulin Lispro 100 Unit/Ml 3 Ml Vial) 0 unit SUBCUT QIDACHS [facility]; Protocol Last Admin: 10/19/23 13:07 Dose: Not Given Lamotrigine (Lamotrigine 100 Mg Tablet) 100 mg PO BEDTIME [facility] Last Admin: 10/18/23 21:55 Dose: 100 mg Levothyroxine Sodium (Levothyroxine Sodium 200 Mcg Tablet) 200 mcg PO DAILY [facility] Last Admin: 10/19/23 09:14 Dose: 200 mcg Magnesium Hydroxide (Milk Of Magnesia 30 Ml Oral.Susp) 30 ml PO DAILY PRN PRN Reason: Constipation Memantine (Memantine Hcl 5 Mg Tablet) 5 mg PO BID [facility] Last Admin: 10/19/23 09:14 Dose: 5 mg Metformin HCl (Metformin Hcl Er 500 Mg Tab.Er.24h) 1,000 mg PO DAILY@1700 [facility] Last Admin: 10/18/23 18:03 Dose: 1,000 mg Nicotine Polacrilex (Nicotine Polacrilex 2 Mg Gum) 4 mg BUCCAL Q2H PRN PRN Reason: Nicotine Cravings Sertraline HCl (Sertraline Hcl 100 Mg Tablet) 100 mg PO DAILY [facility] Last Admin: 10/19/23 09:14 Dose: 100 mg Trazodone HCl (Trazodone Hcl 50 Mg Tablet) 50 mg PO BEDTIME MRX1 PRN PRN Reason: Insomnia Last Admin: 10/18/23 21:55 Dose: 50 mg Allergies Allergies Allergy/AdvReac Type Severity Reaction Status Date / Time amoxicillin [AMOXICILLIN] Allergy Mild VOMITING/ABD Verified 09/10/23 19:44 PAIN Assessment & Plan Assessment & Plan (1) Schizoaffective disorder: Status: Acute Code(s): F25.9 - Schizoaffective disorder, unspecified (2) Hypothyroidism: Status: Acute Code(s): E03.9 - Hypothyroidism, unspecified (3) Type 2 diabetes mellitus: Status: Acute Code(s): E11.9 - Type 2 diabetes mellitus without complications Plan Patient is a 58 year old male with hx of Schizoaffective d/o and hypothyroid disorder/thyroid coma, stroke and brain aneurysm, who was brought to [facility] on a Section 12 d/t disorganized behavior, concern for his memory impairment, medications noncompliance and poor ADLs. Plan: CV 15 minute safety checks Continue home medications: Haldol 10mg PO daily Synthroid 200mcg PO daily Obtain labs; A1C/POCs Obtain collateral from sister Obtain records from last hospitalization. MOCA Referral for DMH services if patient is agreeable. encourage medication compliance;consider VARAGS discharge planning 09/11: Elevated fasting blood sugar elevated hemoglobin A1c 9.2 med consult placed put in point of care needed will start metformin Would benefit from clarity over recent hospitalization what this were done details regarding treatment continue Haldol unclear if patient has Healthcare proxy his [place] was low slowed cognition with poor details in depth at times during blankly regarding making judgments Unclear if any of this relates to past coma or 2 hypothyroidism. He does seem more impaired than when last seen unclear when last imaging was. Continue Haldol sitter neuro indira involvement regarding diagnostic picture. Patient does remain paranoid blunted suspicious apathetic. He might benefit from longer- term placement if available and appropriate at a later time involved DMH involvement would be quite helpful 09/12: cont haldol get records ? hcp ? start antidep unclear hx 09/13: Keeping to self. More talkative today. Pt concerned he will be transferred to [facility]. Pt stated, The paper I signed yesterday. Are you going to send me back to the last hospital? That place was horrible . Pt was educated he signed a release of information with Dr. Gonzalez to obtain records from [facility]. Pt was given a copy of the release he signed. Despite this, pt continues to be anxious about being transferred. Pt denies SI/HI/VH/AH. 09/14: Keeping to self. active on unit. showered. Pt reports feeling alright today; pt reports he is worried about where I'm going to go . Pt continues concerned he will be transferred to [facility]. Pt denies SI/HI/VH/AH. 09/15:Pt reports feeling alright today; pt continues to report he is worried about where I'm going to go . Responding with brief responses. Guarded. Observed standing in one place for a long period of time. Appears confused. Pt denies SI/HI/VH/AH. T/W spoke to patient's sister, Ros, with patients verbal consent. Ros reports concerns regarding patients ability to make decisions regarding his mental and physical health. She plans on contacting legal advice on obtaining guardianship of patient. 09/16:Patient's presents similar to yesterday's presentation. Responding with brief responses. Guarded. Observed standing in one place for a long period of time, when asked what he is doing, pt stated, I don't know . Pt reports he plans on contacting his sister today and try to convince her for me to stay there . Pt denies SI/HI/VH/AH. Continue current tx plan. 09/17: brief responses. Guarded. 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 Pt denies SI/HI/VH/AH. T/W and Dr. Gonzalez spoke to patient's sister, Ros. Ros stated being [facility] and plans on finding document. She plans on coming to the hospital on Saturday to be present for [facility] intake. 09/22/2023: No changes 09/23/2023 Patient flat apathetic difficult insight and judgment his sister is healthcare proxy if needed patient is accepting medical treatment Referral to [facility] 09/24/23 Considers starting Haldol Decanoate patient is agreeable superficially difficulty with exec fx was seen [facility] 09/25/23 Pt seen in f/u mood flat dysphoric difficulty engaging in conversation preoccupied with thought he wont be living with family thing slowed apathetic no clear response with namenda ? some improvement inc lamictal start low dose sertraline inc lamictal ck tsh 09/26/2023 Start Abilify as augmentation with Haldol see if can be more stimulating regarding depressed mood apathetic limited engagement sertraline 50 mg Lamictal 25 b.i.d. referral to [facility] which would have structure unclear if patient can engage with this he remains quite depressed has delusional beliefs regarding housing and that things have been done he has repeatedly tried to reach out to his sister denies active SI needs much help dressing talking with others encouragement to eat severe thought blocking Abilify might be more stimulating than Haldol which can be more dulling 09/27/23 Abilify started sertraline Lamictal encouraged step-down to [facility] encourage reality orientation denies active SI 09/27: Continue current regimen and plans 09/28: Continue current regimen and plans. 09/30/2023 Referral to [facility] increase Abilify to 5 mg daily eventually try and taper Haldol sertraline 50 mg daily 10/01/2023 Increase Abilify to 10 mg lower Haldol to 7 mg continue sertraline and Lamictal 10/02/2023 Abilify increased to 10 mg continue to taper Haldol sertraline 100 mg Lamictal increased to 75 mg patient apathetic withdrawn difficulty with placement some paranoia continues difficulty with decision making at times. Not physically aggressive internally preoccupied seems somewhat improved with Abilify sertraline Continue discharge planning 10/03/2023 Patient somewhat blunted flat slowed thinking during the day times staring. Change Abilify to 10 mg at bedtime. Scheduled Haldol will lowered to 2.5 mg Continue sertraline 100 mg Namenda 5 b.i.d. 10/04/2023 . Haldol discontinued modafinil low-dose monitor for psychosis or agitation continue discharge planning 10/07/2023 May need to firm healthcare proxy calls have been placed to sister to try to help in discharge planning. Referrals made. Patient cooperative with care 10/08/2023 Pharmacy ordering Abilify maintain a increase modafinil 100 mg patient remains flat passive depressed some improvement noted no current paranoia noted continue discharge planning no current safe discharge plan 10/09/2023 Increase Lamictal 100 mg Abilify Maintena 400 mg hold modafinil unclear if was overly stimulating patient continues to present internally preoccupied. 10/10/23 Healthcare proxy invoked discharge planning continue Lamictal Abilify pending maintain a 10/11/2023 Healthcare proxy invoked new CV signed discharge planning. 10/11 keep same treatment 10/12 keep same treatment 10/14/2023 Continue plan of care Lamictal Abilify discharge planning sertraline 10/14: stable. continue current mgmt. 10/15: stable. continue current mgmt. 10/16: stable presentation. continue current mgmt. 10/17: as for yesterday. 10/18: no changes. Reason for continued inpatient stay Substantial Risk for: inability to function Time Spent With Patient Time: Total time managing care of this patient today ____ minutes.
[2023-10-19 17:52] LABS: Glucose, Whole Blood 135 mg/dL (60-115)
[2023-10-19] MEDS: metFORMIN HCl ER 500 MG TAB.ER.24H 1000 MG PO (18:21)
[2023-10-19 20:00] VITALS: BP 116/68; PULSE 83; RESP 16; TEMP 36.7; O2SAT 98
[2023-10-19] MEDS: Insulin Lispro 100 UNIT/ML 3 ML VIAL SUBCUT (21:53)
[2023-10-19] MEDS: Insulin Glargine,Hum.rec.anlog 100 UNIT/ML 10 ML VIAL 20 UNIT SUBCUT (21:54)
[2023-10-19] MEDS: traZODone HCL 50 MG TABLET PO (21:55)
[2023-10-19] MEDS: ARIPiprazole 10 MG TABLET PO (21:55)
[2023-10-19] MEDS: hydrOXYzine HCL 25 MG TABLET PO (21:55)
[2023-10-19] MEDS: lamoTRIgine 100 MG TABLET PO (21:55)
[2023-10-19 22:02] LABS: Glucose, Whole Blood 209 mg/dL (60-115)
[2023-10-20 08:49] LABS: Glucose, Whole Blood 100 mg/dL (60-115)
[2023-10-20 09:11] VITALS: BP 127/71; PULSE 91; RESP 18; TEMP 37.1; O2SAT 95
[2023-10-20] MEDS: Levothyroxine Sodium 200 MCG TABLET PO (09:12)
[2023-10-20] MEDS: Memantine HCl 5 MG TABLET PO ×2 (09:12→22:30)
[2023-10-20] MEDS: Sertraline HCL 100 MG TABLET PO (09:12)
[2023-10-20 13:02] LABS: Glucose, Whole Blood 105 mg/dL (60-115)
--- NOTE | 2023-10-20 17:07 | HO.PSYCHPN ---
Subjective Subjective Date of Service: 10/20/23 Reason For Visit: paranoia cognitive impairment Interim History: no change in presentation. per staff, calm, pleasant, no change, no events. Mental Status Exam Mental Status Exam Patient Appearance: Appropriate Patient Orientation: Person and Situation Level of Consciousness: Awake and Appropriate Patient Behavior: Guarded and Passive Mood Description: Withdrawn Affect Description: Calm Patient Cognition Impaired: Yes Ability to Follow Directions: Good Speech Pattern: Clear 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: None Delusions: Not Present Thought Process: Distracted and Slowed Thinking Thought Content: positive for [place] and positive for Poverty of Content Judgement: Fair Diagnostics Vital Signs (24Hr): Vital Signs - 24 hr 10/19/23 20:00 10/20/23 09:11 Temperature 98.1 F 98.8 F Pulse Rate 83 91 Respiratory Rate 16 18 Blood Pressure 116/68 127/71 Pulse Oximetry 98 95 Oxygen Delivery Method Room Air Room Air BMI result Body Mass Index 31.3 Labs 09/10/23 20:00 10/17/23 08:49 Labs: Laboratory Results - last 48 hr 10/18/23 10/18/23 10/19/23 17:44 21:32 08:39 POC Glucose 136 H 220 H 113 10/19/23 10/19/23 10/19/23 13:04 17:45 21:42 POC Glucose 131 H 135 H 209 H 10/20/23 10/20/23 08:44 12:53 POC Glucose 100 105 Imaging Radiology Impressions: ITS Impressions Brain MRI 09/19/23 20:33 IMPRESSION: 1. No demonstrated acute intracranial abnormalities. 2. Chronic mild to moderate nonspecific white matter changes, most notably in the deep white matter of the right frontal lobe. Mild to moderate generalized cerebral volume loss. Medications Medications Current Medications Acetaminophen (Acetaminophen 325 Mg Tablet) 650 mg PO Q6H PRN PRN Reason: Headache/Pain Mild Scale (1-3) Last Admin: 10/13/23 09:39 Dose: 650 mg Al Hydroxide/Mg Hydroxide (Magnesium Hydrox/Alum Hydrox 30 Ml Oral.Susp) 30 ml PO Q6H PRN PRN Reason: Heartburn/Nausea Aripiprazole (Aripiprazole 10 Mg Tablet) 10 mg PO BEDTIME [facility] Last Admin: 10/19/23 21:55 Dose: 10 mg Benztropine Mesylate (Benztropine Mesylate 0.5 Mg Tablet) 0.5 mg PO TID PRN PRN Reason: Extrapyramidal Effects Glucose (Glucose Gel 15 Gm Gel..Gram.) 15 gm PO Q15M PRN; Protocol PRN Reason: per Hypoglycemia Standing Ord. Hydroxyzine HCl (Hydroxyzine Hcl 25 Mg Tablet) 25 mg PO Q6H PRN PRN Reason: Anxiety Last Admin: 10/19/23 21:55 Dose: 25 mg Dextrose (D10) 250 mls @ 750 mls/hr IV Q15M PRN; Protocol PRN Reason: per Hypoglycemia Standing Ord. Insulin Glargine (Insulin Glargine,Hum.Rec.Anlog 100 Unit/Ml 10 Ml Vial) 20 unit SUBCUT BEDTIME [facility] Last Admin: 10/19/23 21:54 Dose: 20 unit Insulin Human Lispro (Insulin Lispro 100 Unit/Ml 3 Ml Vial) 0 unit SUBCUT QIDACHS [facility]; Protocol Last Admin: 10/20/23 13:08 Dose: Not Given Lamotrigine (Lamotrigine 100 Mg Tablet) 100 mg PO BEDTIME [facility] Last Admin: 10/19/23 21:55 Dose: 100 mg Levothyroxine Sodium (Levothyroxine Sodium 200 Mcg Tablet) 200 mcg PO DAILY [facility] Last Admin: 10/20/23 09:12 Dose: 200 mcg Magnesium Hydroxide (Milk Of Magnesia 30 Ml Oral.Susp) 30 ml PO DAILY PRN PRN Reason: Constipation Memantine (Memantine Hcl 5 Mg Tablet) 5 mg PO BID [facility] Last Admin: 10/20/23 09:12 Dose: 5 mg Metformin HCl (Metformin Hcl Er 500 Mg Tab.Er.24h) 1,000 mg PO DAILY@1700 [facility] Last Admin: 10/19/23 18:21 Dose: 1,000 mg Nicotine Polacrilex (Nicotine Polacrilex 2 Mg Gum) 4 mg BUCCAL Q2H PRN PRN Reason: Nicotine Cravings Sertraline HCl (Sertraline Hcl 100 Mg Tablet) 100 mg PO DAILY [facility] Last Admin: 10/20/23 09:12 Dose: 100 mg Trazodone HCl (Trazodone Hcl 50 Mg Tablet) 50 mg PO BEDTIME MRX1 PRN PRN Reason: Insomnia Last Admin: 10/19/23 21:55 Dose: 50 mg Allergies Allergies Allergy/AdvReac Type Severity Reaction Status Date / Time amoxicillin [AMOXICILLIN] Allergy Mild VOMITING/ABD Verified 09/10/23 19:44 PAIN Assessment & Plan Assessment & Plan (1) Schizoaffective disorder: Status: Acute Code(s): F25.9 - Schizoaffective disorder, unspecified (2) Hypothyroidism: Status: Acute Code(s): E03.9 - Hypothyroidism, unspecified (3) Type 2 diabetes mellitus: Status: Acute Code(s): E11.9 - Type 2 diabetes mellitus without complications Plan Patient is a 58 year old male with hx of Schizoaffective d/o and hypothyroid disorder/thyroid coma, stroke and brain aneurysm, who was brought to [facility] ER on a Section 12 d/t disorganized behavior, concern for his memory impairment, medications noncompliance and poor ADLs. Plan: CV 15 minute safety checks Continue home medications: Haldol 10mg PO daily Synthroid 200mcg PO daily Obtain labs; A1C/POCs Obtain collateral from sister Obtain records from last hospitalization. MOCA Referral for DMH services if patient is agreeable. encourage medication compliance;consider VARGAS discharge planning 09/11: Elevated fasting blood sugar elevated hemoglobin A1c 9.2 med consult placed put in point of care needed will start metformin Would benefit from clarity over recent hospitalization what this were done details regarding treatment continue Haldol unclear if patient has Healthcare proxy his [place] was low slowed cognition with poor details in depth at times during blankly regarding making judgments Unclear if any of this relates to past coma or 2 hypothyroidism. He does seem more impaired than when last seen unclear when last imaging was. Continue Haldol sitter neuro indira involvement regarding diagnostic picture. Patient does remain paranoid blunted suspicious apathetic. He might benefit from longer-term placement if available and appropriate at a later time involved DMH involvement would be quite helpful 09/12: cont haldol get records ? hcp ? start antidep unclear hx 09/13: Keeping to self. More talkative today. Pt concerned he will be transferred to [facility]. Pt stated, The paper I signed yesterday. Are you going to send me back to the last hospital? That place was horrible . Pt was educated he signed a release of information with Dr. Gonzalez to obtain records from [facility]. Pt was given a copy of the release he signed. Despite this, pt continues to be anxious about being transferred. Pt denies SI/HI/VH/AH. 09/14: Keeping to self. active on unit. showered. Pt reports feeling alright today; pt reports he is worried about where I'm going to go . Pt continues concerned he will be transferred to [facility]. Pt denies SI/HI/VH/AH. 09/15:Pt reports feeling alright today; pt continues to report he is worried about where I'm going to go . Responding with brief responses. Guarded. Observed standing in one place for a long period of time. Appears confused. Pt denies SI/HI/VH/AH. T/W spoke to patient's sister, Ros, with patients verbal consent. Ros reports concerns regarding patients ability to make decisions regarding his mental and physical health. She plans on contacting legal advice on obtaining guardianship of patient. 09/16:Patient's presents similar to yesterday's presentation. Responding with brief responses. Guarded. Observed standing in one place for a long period of time, when asked what he is doing, pt stated, I don't know . Pt reports he plans on contacting his sister today and try to convince her for me to stay there . Pt denies SI/HI/VH/AH. Continue current tx plan. 09/17: brief responses. Guarded. 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 Pt denies SI/HI/VH/AH. T/W and Dr. Gonzalez spoke to patient's sister, Ros. Ros stated being [facility] and plans on finding document. She plans on coming to the hospital on Saturday to be present for [facility] intake. 09/22/2023: No changes 09/23/2023 Patient flat apathetic difficult insight and judgment his sister is healthcare proxy if needed patient is accepting medical treatment Referral to [facility] 09/24/23 Considers starting Haldol Decanoate patient is agreeable superficially difficulty with exec fx was seen [facility] 09/25/23 Pt seen in f/u mood flat dysphoric difficulty engaging in conversation preoccupied with thought he wont be living with family thing slowed apathetic no clear response with namenda ? some improvement inc lamictal start low dose sertraline inc lamictal ck tsh 09/26/2023 Start Abilify as augmentation with Haldol see if can be more stimulating regarding depressed mood apathetic limited engagement sertraline 50 mg Lamictal 25 b.i.d. referral to [facility] which would have structure unclear if patient can engage with this he remains quite depressed has delusional beliefs regarding housing and that things have been done he has repeatedly tried to reach out to his sister denies active SI needs much help dressing talking with others encouragement to eat severe thought blocking Abilify might be more stimulating than Haldol which can be more dulling 09/27/23 Abilify started sertraline Lamictal encouraged step-down to [facility] encourage reality orientation denies active SI 09/27: Continue current regimen and plans 09/28: Continue current regimen and plans. 09/30/2023 Referral to [facility] increase Abilify to 5 mg daily eventually try and taper Haldol sertraline 50 mg daily 10/01/2023 Increase Abilify to 10 mg lower Haldol to 7 mg continue sertraline and Lamictal 10/02/2023 Abilify increased to 10 mg continue to taper Haldol sertraline 100 mg Lamictal increased to 75 mg patient apathetic withdrawn difficulty with placement some paranoia continues difficulty with decision making at times. Not physically aggressive internally preoccupied seems somewhat improved with Abilify sertraline Continue discharge planning 10/03/2023 Patient somewhat blunted flat slowed thinking during the day times staring. Change Abilify to 10 mg at bedtime. Scheduled Haldol will lowered to 2.5 mg Continue sertraline 100 mg Namenda 5 b.i.d. 10/04/2023 . Haldol discontinued modafinil low-dose monitor for psychosis or agitation continue discharge planning 10/07/2023 May need to firm healthcare proxy calls have been placed to sister to try to help in discharge planning. Referrals made. Patient cooperative with care 10/08/2023 Pharmacy ordering Abilify maintain a increase modafinil 100 mg patient remains flat passive depressed some improvement noted no current paranoia noted continue discharge planning no current safe discharge plan 10/09/2023 Increase Lamictal 100 mg Abilify Maintena 400 mg hold modafinil unclear if was overly stimulating patient continues to present internally preoccupied. 10/10/23 Healthcare proxy invoked discharge planning continue Lamictal Abilify pending maintain a 10/11/2023 Healthcare proxy invoked new CV signed discharge planning. 10/11 keep same treatment 10/12 keep same treatment 10/14/2023 Continue plan of care Lamictal Abilify discharge planning sertraline 10/14: stable. continue current mgmt. 10/15: stable. continue current mgmt. 10/16: stable presentation. continue current mgmt. 10/17: as for yesterday. 10/18: no changes. 10/19: stabel, safe. no change. Reason for continued inpatient stay Substantial Risk for: inability to function and rapid decompensation Time Spent With Patient Time: Total time managing care of this patient today ____ minutes.
[2023-10-20 17:57] LABS: Glucose, Whole Blood 88 mg/dL (60-115)
[2023-10-20] MEDS: metFORMIN HCl ER 500 MG TAB.ER.24H 1000 MG PO (18:16)
[2023-10-20 20:00] VITALS: BP 129/68; PULSE 92; RESP 16; TEMP 36.9; O2SAT 96
[2023-10-20] MEDS: Insulin Glargine,Hum.rec.anlog 100 UNIT/ML 10 ML VIAL 20 UNIT SUBCUT (22:29)
[2023-10-20] MEDS: ARIPiprazole 10 MG TABLET PO (22:30)
[2023-10-20] MEDS: lamoTRIgine 100 MG TABLET PO (22:30)
[2023-10-20 22:37] LABS: Glucose, Whole Blood 162 mg/dL (60-115)
[2023-10-20] MEDS: Insulin Lispro 100 UNIT/ML 3 ML VIAL SUBCUT (22:37)
[2023-10-21 08:05] VITALS: BP 127/70; PULSE 82; RESP 16; TEMP 37.1; O2SAT 97
[2023-10-21] MEDS: Sertraline HCL 100 MG TABLET PO (08:37)
[2023-10-21] MEDS: Levothyroxine Sodium 200 MCG TABLET PO (08:37)
[2023-10-21] MEDS: Memantine HCl 5 MG TABLET PO ×2 (08:37→21:36)
[2023-10-21 08:52] LABS: Glucose, Whole Blood 102 mg/dL (60-115)
--- NOTE | 2023-10-21 10:41 | P.PNPSI_ITS ---
Subjective Subjective Date of Service: 10/21/23 Reason For Visit: paranoia cognitive impairment Subjective Notes: Conditional Voluntary Healthcare Proxy: Yes Interim History: Reviewed with Dr. Gonzalez. no change in presentation. calm, cooperative. active on unit, social with select peers, attending groups. Pt reports feeling alright . denies SI/HI/VH/AH. Social work waiting to hear from possible placement location. Continue current tx plan. Medication Compliance: Yes Side effects from medications: No Attending Groups: Yes Review of Systems Constitutional: Reports as per HPI Eyes: Reports as per HPI Reports as per HPI Cardiovascular: Reports as per HPI Respiratory: Reports as per HPI Gastrointestinal: Reports as per HPI Genitourinary: Reports as per HPI Musculoskeletal: Reports as per HPI Skin/Breast: Reports as per HPI Reports as per HPI Psychiatric: Reports as per HPI Endocrine: Reports as per HPI Hematologic/Lymphatic: Reports as per HPI Allergic/Immunologic: Reports as per HPI Mental Status Exam Mental Status Exam Patient Appearance: Appropriate Patient Orientation: Person and Situation Level of Consciousness: Awake and Appropriate Patient Behavior: Guarded and Passive Mood Description: Calm and Withdrawn Affect Description: Calm Patient Cognition Impaired: Yes Ability to Follow Directions: Good Speech Pattern: Clear 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: [employer] Impaired Diagnostics Vital Signs (24Hr): Vital Signs - 24 hr 10/20/23 20:00 10/21/23 08:05 Temperature 98.5 F 98.7 F Pulse Rate 92 82 Respiratory Rate 16 16 Blood Pressure 129/68 127/70 Pulse Oximetry 96 97 Oxygen Delivery Method Room Air Room Air BMI result Body Mass Index 31.3 Labs 09/10/23 20:00 10/17/23 08:49 Labs: Laboratory Results - last 48 hr 10/19/23 10/19/23 10/19/23 13:04 17:45 21:42 POC Glucose 131 H 135 H 209 H 10/20/23 10/20/23 10/20/23 08:44 12:53 17:52 POC Glucose 100 105 88 10/20/23 10/21/23 22:28 08:30 POC Glucose 162 H 102 Imaging Radiology Impressions: ITS Impressions Brain MRI 09/19/23 20:33 IMPRESSION: 1. No demonstrated acute intracranial abnormalities. 2. Chronic mild to moderate nonspecific white matter changes, most notably in the deep white matter of the right frontal lobe. Mild to moderate generalized cerebral volume loss. Medications Medications Current Medications Acetaminophen (Acetaminophen 325 Mg Tablet) 650 mg PO Q6H PRN PRN Reason: Headache/Pain Mild Scale (1-3) Last Admin: 10/13/23 09:39 Dose: 650 mg Al Hydroxide/Mg Hydroxide (Magnesium Hydrox/Alum Hydrox 30 Ml Oral.Susp) 30 ml PO Q6H PRN PRN Reason: Heartburn/Nausea Aripiprazole (Aripiprazole 10 Mg Tablet) 10 mg PO BEDTIME [facility] Last Admin: 10/20/23 22:30 Dose: 10 mg Benztropine Mesylate (Benztropine Mesylate 0.5 Mg Tablet) 0.5 mg PO TID PRN PRN Reason: Extrapyramidal Effects Glucose (Glucose Gel 15 Gm Gel..Gram.) 15 gm PO Q15M PRN; Protocol PRN Reason: per Hypoglycemia Standing Ord. Hydroxyzine HCl (Hydroxyzine Hcl 25 Mg Tablet) 25 mg PO Q6H PRN PRN Reason: Anxiety Last Admin: 10/19/23 21:55 Dose: 25 mg Dextrose (D10) 250 mls @ 750 mls/hr IV Q15M PRN; Protocol PRN Reason: per Hypoglycemia Standing Ord. Insulin Glargine (Insulin Glargine,Hum.Rec.Anlog 100 Unit/Ml 10 Ml Vial) 20 unit SUBCUT BEDTIME [facility] Last Admin: 10/20/23 22:29 Dose: 20 unit Insulin Human Lispro (Insulin Lispro 100 Unit/Ml 3 Ml Vial) 0 unit SUBCUT QIDACHS [facility]; Protocol Last Admin: 10/21/23 09:30 Dose: Not Given Lamotrigine (Lamotrigine 100 Mg Tablet) 100 mg PO BEDTIME [facility] Last Admin: 10/20/23 22:30 Dose: 100 mg Levothyroxine Sodium (Levothyroxine Sodium 200 Mcg Tablet) 200 mcg PO DAILY [facility] Last Admin: 10/21/23 08:37 Dose: 200 mcg Magnesium Hydroxide (Milk Of Magnesia 30 Ml Oral.Susp) 30 ml PO DAILY PRN PRN Reason: Constipation Memantine (Memantine Hcl 5 Mg Tablet) 5 mg PO BID [facility] Last Admin: 10/21/23 08:37 Dose: 5 mg Metformin HCl (Metformin Hcl Er 500 Mg Tab.Er.24h) 1,000 mg PO DAILY@1700 [facility] Last Admin: 10/20/23 18:16 Dose: 1,000 mg Nicotine Polacrilex (Nicotine Polacrilex 2 Mg Gum) 4 mg BUCCAL Q2H PRN PRN Reason: Nicotine Cravings Sertraline HCl (Sertraline Hcl 100 Mg Tablet) 100 mg PO DAILY [facility] Last Admin: 10/21/23 08:37 Dose: 100 mg Trazodone HCl (Trazodone Hcl 50 Mg Tablet) 50 mg PO BEDTIME MRX1 PRN PRN Reason: Insomnia Last Admin: 10/19/23 21:55 Dose: 50 mg Allergies Allergies Allergy/AdvReac Type Severity Reaction Status Date / Time amoxicillin [AMOXICILLIN] Allergy Mild VOMITING/ABD Verified 09/10/23 19:44 PAIN Assessment & Plan Assessment & Plan (1) Schizoaffective disorder: Status: Acute Code(s): F25.9 - Schizoaffective disorder, unspecified (2) Hypothyroidism: Status: Acute Code(s): E03.9 - Hypothyroidism, unspecified (3) Type 2 diabetes mellitus: Status: Acute Code(s): E11.9 - Type 2 diabetes mellitus without complications Plan Patient is a 58 year old male with hx of Schizoaffective d/o and hypothyroid disorder/thyroid coma, stroke and brain aneurysm, who was brought to [facility] on a Section 12 d/t disorganized behavior, concern for his memory impairment, medications noncompliance and poor ADLs. Plan: CV 15 minute safety checks Continue home medications: Haldol 10mg PO daily Synthroid 200mcg PO daily Obtain labs; A1C/POCs Obtain collateral from sister Obtain records from last hospitalization. MOCA Referral for DMH services if patient is agreeable. encourage medication compliance;consider VARGAS discharge planning 09/11: Elevated fasting blood sugar elevated hemoglobin A1c 9.2 med consult placed put in point of care needed will start metformin Would benefit from clarity over recent hospitalization what this were done details regarding treatment continue Haldol unclear if patient has Healthcare proxy his [place] was low slowed cognition with poor details in depth at times during blankly regarding making judgments Unclear if any of this relates to past coma or 2 hypothyroidism. He does seem more impaired than when last seen unclear when last imaging was. Continue Haldol sitter neuro indira involvement regarding diagnostic picture. Patient does remain paranoid blunted suspicious apathetic. He might benefit from longer- term placement if available and appropriate at a later time involved DMH involvement would be quite helpful 09/12: cont haldol get records ? hcp ? start antidep unclear hx 09/13: Keeping to self. More talkative today. Pt concerned he will be transferred to [facility]. Pt stated, The paper I signed yesterday. Are you going to send me back to the last hospital? That place was horrible . Pt was educated he signed a release of information with Dr. Gonzalez to obtain records from [facility]. Pt was given a copy of the release he signed. Despite this, pt continues to be anxious about being transferred. Pt denies SI/HI/VH/AH. 09/14: Keeping to self. active on unit. showered. Pt reports feeling alright today; pt reports he is worried about where I'm going to go . Pt continues concerned he will be transferred to [facility]. Pt denies SI/HI/VH/AH. 09/15:Pt reports feeling alright today; pt continues to report he is worried about where I'm going to go . Responding with brief responses. Guarded. Observed standing in one place for a long period of time. Appears confused. Pt denies SI/HI/VH/AH. T/W spoke to patient's sister, Ros, with patients verbal consent. Ros reports concerns regarding patients ability to make decisions regarding his mental and physical health. She plans on contacting legal advice on obtaining guardianship of patient. 09/16:Patient's presents similar to yesterday's presentation. Responding with brief responses. Guarded. Observed standing in one place for a long period of time, when asked what he is doing, pt stated, I don't know . Pt reports he plans on contacting his sister today and try to convince her for me to stay there . Pt denies SI/HI/VH/AH. Continue current tx plan. 09/17: brief responses. Guarded. 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 Pt denies SI/HI/VH/AH. T/W and Dr. Gonzalez spoke to patient's sister, Ros. Ros stated being [facility] and plans on finding document. She plans on coming to the hospital on Saturday to be present for [facility] intake. 09/22/2023: No changes 09/23/2023 Patient flat apathetic difficult insight and judgment his sister is healthcare proxy if needed patient is accepting medical treatment Referral to [facility] 09/24/23 Considers starting Haldol Decanoate patient is agreeable superficially difficulty with exec fx was seen [facility] 09/25/23 Pt seen in f/u mood flat dysphoric difficulty engaging in conversation preoccupied with thought he wont be living with family thing slowed apathetic no clear response with namenda ? some improvement inc lamictal start low dose sertraline inc lamictal ck tsh 09/26/2023 Start Abilify as augmentation with Haldol see if can be more stimulating regarding depressed mood apathetic limited engagement sertraline 50 mg Lamictal 25 b.i.d. referral to [facility] which would have structure unclear if patient can engage with this he remains quite depressed has delusional beliefs regarding housing and that things have been done he has repeatedly tried to reach out to his sister denies active SI needs much help dressing talking with others encouragement to eat severe thought blocking Abilify might be more stimulating than Haldol which can be more dulling 09/27/23 Abilifwaldemar started sertraline Lamictal encouraged step-down to [facility] encourage reality orientation denies active SI 09/27: Continue current regimen and plans 09/28: Continue current regimen and plans. 09/30/2023 Referral to [facility] increase Abilify to 5 mg daily eventually try and taper Haldol sertraline 50 mg daily 10/01/2023 Increase Abilify to 10 mg lower Haldol to 7 mg continue sertraline and Lamictal 10/02/2023 Abilify increased to 10 mg continue to taper Haldol sertraline 100 mg Lamictal increased to 75 mg patient apathetic withdrawn difficulty with placement some paranoia continues difficulty with decision making at times. Not physically aggressive internally preoccupied seems somewhat improved with Abilify sertraline Continue discharge planning 10/03/2023 Patient somewhat blunted flat slowed thinking during the day times staring. Change Abilify to 10 mg at bedtime. Scheduled Haldol will lowered to 2.5 mg Continue sertraline 100 mg Namenda 5 b.i.d. 10/04/2023 . Haldol discontinued modafinil low-dose monitor for psychosis or agitation continue discharge planning 10/07/2023 May need to firm healthcare proxy calls have been placed to sister to try to help in discharge planning. Referrals made. Patient cooperative with care 10/08/2023 Pharmacy ordering Abilify maintain a increase modafinil 100 mg patient remains flat passive depressed some improvement noted no current paranoia noted continue discharge planning no current safe discharge plan 10/09/2023 Increase Lamictal 100 mg Abilify Maintena 400 mg hold modafinil unclear if was overly stimulating patient continues to present internally preoccupied. 10/10/23 Healthcare proxy invoked discharge planning continue Lamictal Abilify pending maintain a 10/11/2023 Healthcare proxy invoked new CV signed discharge planning. 10/11 keep same treatment 10/12 keep same treatment 10/14/2023 Continue plan of care Lamictal Abilify discharge planning sertraline 10/14: stable. continue current mgmt. 10/15: stable. continue current mgmt. 10/16: stable presentation. continue current mgmt. 10/17: as for yesterday. 10/18: no changes. 10/19: stabel, safe. no change. 10/20: no change in presentation. calm, cooperative. active on unit, social with select peers, attending groups. Pt reports feeling alright . denies SI/HI/VH/AH. Social work waiting to hear from possible placement location. Continue current tx plan. Patient educated on: diagnosis and medication risk/benefits Reason for continued inpatient stay Substantial Risk for: med/psych decompensation Time Spent With Patient Time: Total time managing care of this patient today _20___ minutes.
[2023-10-21 12:32] LABS: Glucose, Whole Blood 66 mg/dL (60-115)
[2023-10-21] MEDS: metFORMIN HCl ER 500 MG TAB.ER.24H 1000 MG PO (17:15)
[2023-10-21 17:23] LABS: Glucose, Whole Blood 256 mg/dL (60-115)
[2023-10-21] MEDS: Insulin Lispro 100 UNIT/ML 3 ML VIAL SUBCUT (17:43)
[2023-10-21 20:00] VITALS: BP 128/72; PULSE 89; RESP 16; TEMP 36.9; O2SAT 98
[2023-10-21 21:13] LABS: Glucose, Whole Blood 127 mg/dL (60-115)
[2023-10-21] MEDS: lamoTRIgine 100 MG TABLET PO (21:36)
[2023-10-21] MEDS: ARIPiprazole 10 MG TABLET PO (21:36)
[2023-10-21] MEDS: Insulin Glargine,Hum.rec.anlog 100 UNIT/ML 10 ML VIAL 20 UNIT SUBCUT (21:37)
[2023-10-22 08:00] VITALS: BP 128/79; PULSE 88; RESP 18; TEMP 36.9; O2SAT 94
[2023-10-22 08:52] LABS: Glucose, Whole Blood 119 mg/dL (60-115)
[2023-10-22] MEDS: Levothyroxine Sodium 200 MCG TABLET PO (09:05)
[2023-10-22] MEDS: Memantine HCl 5 MG TABLET PO ×2 (09:05→21:56)
[2023-10-22] MEDS: Sertraline HCL 100 MG TABLET PO (09:05)
--- NOTE | 2023-10-22 11:06 | HO.PSYCHPN ---
Subjective Subjective Date of Service: 10/22/23 Reason For Visit: paranoia cognitive impairment Subjective Notes: Conditional Voluntary Interim History: Reviewed with Dr. Gonzalez. no change in presentation. calm, cooperative. active on unit, social with select peers, attending groups. Pt reports feeling alright . denies SI/HI/VH/AH. Showered with encouragement Medication Compliance: Yes Side effects from medications: No Attending Groups: Yes Review of Systems Constitutional: Reports as per HPI Eyes: Reports as per HPI Reports as per HPI Cardiovascular: Reports as per HPI Respiratory: Reports as per HPI Gastrointestinal: Reports as per HPI Genitourinary: Reports as per HPI Musculoskeletal: Reports as per HPI Skin/Breast: Reports as per HPI Reports as per HPI Psychiatric: Reports as per HPI Endocrine: Reports as per HPI Hematologic/Lymphatic: Reports as per HPI Allergic/Immunologic: Reports as per HPI Mental Status Exam Mental Status Exam Patient Appearance: Appropriate Patient Orientation: Person and Situation Level of Consciousness: Awake and Appropriate Patient Behavior: Guarded and Passive Mood Description: Calm and Withdrawn Affect Description: Calm Patient Cognition Impaired: Yes Ability to Follow Directions: Good Speech Pattern: Clear 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: Orthotist/Prosthetist Impaired Diagnostics Vital Signs (24Hr): Vital Signs - 24 hr 10/21/23 20:00 10/22/23 08:00 Temperature 98.4 F 98.4 F Pulse Rate 89 88 Respiratory Rate 16 18 Blood Pressure 128/72 128/79 Pulse Oximetry 98 94 Oxygen Delivery Method Room Air Room Air BMI result Body Mass Index 31.3 Labs 09/10/23 20:00 10/17/23 08:49 Labs: Laboratory Results - last 48 hr 10/20/23 10/20/23 10/20/23 12:53 17:52 22:28 POC Glucose 105 88 162 H 10/21/23 10/21/23 10/21/23 08:30 12:28 17:19 POC Glucose 102 66 256 H 10/21/23 10/22/23 21:09 08:47 POC Glucose 127 H 119 H Imaging Radiology Impressions: ITS Impressions Brain MRI 09/19/23 20:33 IMPRESSION: 1. No demonstrated acute intracranial abnormalities. 2. Chronic mild to moderate nonspecific white matter changes, most notably in the deep white matter of the right frontal lobe. Mild to moderate generalized cerebral volume loss. Medications Medications Current Medications Acetaminophen (Acetaminophen 325 Mg Tablet) 650 mg PO Q6H PRN PRN Reason: Headache/Pain Mild Scale (1-3) Last Admin: 10/13/23 09:39 Dose: 650 mg Al Hydroxide/Mg Hydroxide (Magnesium Hydrox/Alum Hydrox 30 Ml Oral.Susp) 30 ml PO Q6H PRN PRN Reason: Heartburn/Nausea Aripiprazole (Aripiprazole 10 Mg Tablet) 10 mg PO BEDTIME [facility] Last Admin: 10/21/23 21:36 Dose: 10 mg Benztropine Mesylate (Benztropine Mesylate 0.5 Mg Tablet) 0.5 mg PO TID PRN PRN Reason: Extrapyramidal Effects Glucose (Glucose Gel 15 Gm Gel..Gram.) 15 gm PO Q15M PRN; Protocol PRN Reason: per Hypoglycemia Standing Ord. Hydroxyzine HCl (Hydroxyzine Hcl 25 Mg Tablet) 25 mg PO Q6H PRN PRN Reason: Anxiety Last Admin: 10/19/23 21:55 Dose: 25 mg Dextrose (D10) 250 mls @ 750 mls/hr IV Q15M PRN; Protocol PRN Reason: per Hypoglycemia Standing Ord. Insulin Glargine (Insulin Glargine,Hum.Rec.Anlog 100 Unit/Ml 10 Ml Vial) 20 unit SUBCUT BEDTIME [facility] Last Admin: 10/21/23 21:37 Dose: 20 unit Insulin Human Lispro (Insulin Lispro 100 Unit/Ml 3 Ml Vial) 0 unit SUBCUT QIDACHS [facility]; Protocol Last Admin: 10/22/23 09:06 Dose: Not Given Lamotrigine (Lamotrigine 100 Mg Tablet) 100 mg PO BEDTIME [facility] Last Admin: 10/21/23 21:36 Dose: 100 mg Levothyroxine Sodium (Levothyroxine Sodium 200 Mcg Tablet) 200 mcg PO DAILY [facility] Last Admin: 10/22/23 09:05 Dose: 200 mcg Magnesium Hydroxide (Milk Of Magnesia 30 Ml Oral.Susp) 30 ml PO DAILY PRN PRN Reason: Constipation Memantine (Memantine Hcl 5 Mg Tablet) 5 mg PO BID [facility] Last Admin: 10/22/23 09:05 Dose: 5 mg Metformin HCl (Metformin Hcl Er 500 Mg Tab.Er.24h) 1,000 mg PO DAILY@1700 [facility] Last Admin: 10/21/23 17:15 Dose: 1,000 mg Nicotine Polacrilex (Nicotine Polacrilex 2 Mg Gum) 4 mg BUCCAL Q2H PRN PRN Reason: Nicotine Cravings Sertraline HCl (Sertraline Hcl 100 Mg Tablet) 100 mg PO DAILY MANAS Last Admin: 10/22/23 09:05 Dose: 100 mg Trazodone HCl (Trazodone Hcl 50 Mg Tablet) 50 mg PO BEDTIME MRX1 PRN PRN Reason: Insomnia Last Admin: 10/19/23 21:55 Dose: 50 mg Allergies Allergies Allergy/AdvReac Type Severity Reaction Status Date / Time amoxicillin [AMOXICILLIN] Allergy Mild VOMITING/ABD Verified 09/10/23 19:44 PAIN Assessment & Plan Assessment & Plan (1) Schizoaffective disorder: Status: Acute Code(s): F25.9 - Schizoaffective disorder, unspecified (2) Hypothyroidism: Status: Acute Code(s): E03.9 - Hypothyroidism, unspecified (3) Type 2 diabetes mellitus: Status: Acute Code(s): E11.9 - Type 2 diabetes mellitus without complications Plan Patient is a 58 year old male with hx of Schizoaffective d/o and hypothyroid disorder/thyroid coma, stroke and brain aneurysm, who was brought to [facility] on a [address] 12 d/t disorganized behavior, concern for his memory impairment, medications noncompliance and poor ADLs. Plan: CV 15 minute safety checks Continue home medications: Haldol 10mg PO daily Synthroid 200mcg PO daily Obtain labs; A1C/POCs Obtain collateral from sister Obtain records from last hospitalization. MOCA Referral for [facility] services if patient is agreeable. encourage medication compliance;consider VARGAS discharge planning 09/11: Elevated fasting blood sugar elevated hemoglobin A1c 9.2 med consult placed put in point of care needed will start metformin Would benefit from clarity over recent hospitalization what this were done details regarding treatment continue Haldol unclear if patient has Healthcare proxy his [place] was low slowed cognition with poor details in depth at times during blankly regarding making judgments Unclear if any of this relates to past coma or 2 hypothyroidism. He does seem more impaired than when last seen unclear when last imaging was. Continue Haldol sitter neuro indira involvement regarding diagnostic picture. Patient does remain paranoid blunted suspicious apathetic. He might benefit from longer-term placement if available and appropriate at a later time involved [facility] involvement would be quite helpful 09/12: cont haldol get records ? hcp ? start antidep unclear hx 09/13: Keeping to self. More talkative today. Pt concerned he will be transferred to [facility]. Pt stated, The paper I signed yesterday. Are you going to send me back to the last hospital? That place was horrible . Pt was educated he signed a release of information with Dr. Gonzalez to obtain records from [facility]. Pt was given a copy of the release he signed. Despite this, pt continues to be anxious about being transferred. Pt denies SI/HI/VH/AH. 09/14: Keeping to self. active on unit. showered. Pt reports feeling alright today; pt reports he is worried about where I'm going to go . Pt continues concerned he will be transferred to [facility]. Pt denies SI/HI/VH/AH. 09/15:Pt reports feeling alright today; pt continues to report he is worried about where I'm going to go . Responding with brief responses. Guarded. Observed standing in one place for a long period of time. Appears confused. Pt denies SI/HI/VH/AH. T/W spoke to patient's sister, Ros, with patients verbal consent. Ros reports concerns regarding patients ability to make decisions regarding his mental and physical health. She plans on contacting legal advice on obtaining guardianship of patient. 09/16:Patient's presents similar to yesterday's presentation. Responding with brief responses. Guarded. Observed standing in one place for a long period of time, when asked what he is doing, pt stated, I don't know . Pt reports he plans on contacting his sister today and try to convince her for me to stay there . Pt denies SI/HI/VH/AH. Continue current tx plan. 09/17: brief responses. Guarded. 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 Pt denies SI/HI/VH/AH. T/W and Dr. Gonzalez spoke to patient's sister, Ros. Ros stated being [facility] HCP and plans on finding document. She plans on coming to the hospital on Saturday to be present for [facility] intake. 09/22/2023: No changes 09/23/2023 Patient flat apathetic difficult insight and judgment his sister is healthcare proxy if needed patient is accepting medical treatment Referral to [facility] 09/24/23 Considers starting Haldol Decanoate patient is agreeable superficially difficulty with exec fx [facility] 09/25/23 Pt seen in f/u mood flat dysphoric difficulty engaging in conversation preoccupied with thought he wont be living with family thing slowed apathetic no clear response with namenda ? some improvement inc lamictal start low dose sertraline inc lamictal ck tsh 09/26/2023 Start Abilify as augmentation with Haldol see if can be more stimulating regarding depressed mood apathetic limited engagement sertraline 50 mg Lamictal 25 b.i.d. referral to [facility] which would have structure unclear if patient can engage with this he remains quite depressed has delusional beliefs regarding housing and that things have been done he has repeatedly tried to reach out to his sister denies active SI needs much help dressing talking with others encouragement to eat severe thought blocking Abilify might be more stimulating than Haldol which can be more dulling 09/27/23 Abilify started sertraline Lamictal encouraged step-down to [facility] encourage reality orientation denies active SI 09/27: Continue current regimen and plans 09/28: Continue current regimen and plans. 09/30/2023 Referral to [facility] increase Abilify to 5 mg daily eventually try and taper Haldol sertraline 50 mg daily 10/01/2023 Increase Abilify to 10 mg lower Haldol to 7 mg continue sertraline and Lamictal 10/02/2023 Abilify increased to 10 mg continue to taper Haldol sertraline 100 mg Lamictal increased to 75 mg patient apathetic withdrawn difficulty with placement some paranoia continues difficulty with decision making at times. Not physically aggressive internally preoccupied seems somewhat improved with Abilify sertraline Continue discharge planning 10/03/2023 Patient somewhat blunted flat slowed thinking during the day times staring. Change Abilify to 10 mg at bedtime. Scheduled Haldol will lowered to 2.5 mg Continue sertraline 100 mg Namenda 5 b.i.d. 10/04/2023 . Haldol discontinued modafinil low-dose monitor for psychosis or agitation continue discharge planning 10/07/2023 May need to firm healthcare proxy calls have been placed to sister to try to help in discharge planning. Referrals made. Patient cooperative with care 10/08/2023 Pharmacy ordering Abilify maintain a increase modafinil 100 mg patient remains flat passive depressed some improvement noted no current paranoia noted continue discharge planning no current safe discharge plan 10/09/2023 Increase Lamictal 100 mg Abilify Maintena 400 mg hold modafinil unclear if was overly stimulating patient continues to present internally preoccupied. 10/10/23 Healthcare proxy invoked discharge planning continue Lamictal Abilify pending maintain a 10/11/2023 Healthcare proxy invoked new CV signed discharge planning. 10/11 keep same treatment 10/12 keep same treatment 10/14/2023 Continue plan of care Lamictal Abilify discharge planning sertraline 10/14: stable. continue current mgmt. 10/15: stable. continue current mgmt. 10/16: stable presentation. continue current mgmt. 10/17: as for yesterday. 10/18: no changes. 10/19: stabel, safe. no change. 10/20: no change in presentation. calm, cooperative. active on unit, social with select peers, attending groups. Pt reports feeling alright . denies SI/HI/VH/AH. Social work waiting to hear from possible placement location. Continue current tx plan. 10/21: continue current tx plan. awaiting placement. Patient educated on: medication risk/benefits Reason for continued inpatient stay Substantial Risk for: med/psych decompensation Time Spent With Patient Time: Total time managing care of this patient today _20___ minutes.
[2023-10-22 12:57] LABS: Glucose, Whole Blood 135 mg/dL (60-115)
[2023-10-22] MEDS: metFORMIN HCl ER 500 MG TAB.ER.24H 1000 MG PO (17:34)
[2023-10-22 17:43] LABS: Glucose, Whole Blood 103 mg/dL (60-115)
[2023-10-22 20:00] VITALS: BP 115/70; PULSE 84; RESP 16; TEMP 36.6; O2SAT 98
[2023-10-22 21:35] LABS: Glucose, Whole Blood 191 mg/dL (60-115)
[2023-10-22] MEDS: lamoTRIgine 100 MG TABLET PO (21:56)
[2023-10-22] MEDS: ARIPiprazole 10 MG TABLET PO (21:56)
[2023-10-22] MEDS: Insulin Glargine,Hum.rec.anlog 100 UNIT/ML 10 ML VIAL 20 UNIT SUBCUT (21:57)
[2023-10-22] MEDS: Insulin Lispro 100 UNIT/ML 3 ML VIAL SUBCUT (21:58)
[2023-10-23 07:56] VITALS: BP 134/72; PULSE 99; RESP 16; TEMP 36.5; O2SAT 97
[2023-10-23 08:34] LABS: Glucose, Whole Blood 99 mg/dL (60-115)
--- NOTE | 2023-10-23 08:54 | P.PNPSI_ITS ---
Subjective Subjective Date of Service: 10/23/23 Reason For Visit: paranoia cognitive impairment Subjective Notes: Conditional Voluntary Interim History: Reviewed with Dr. Gonzalez. calm, cooperative. active on unit, social with select peers, attending groups. Pt reports feeling good ; pt stated, I'm waiting to see where I'm going . denies SI/HI/VH/AH. Showered with encouragement. Medication Compliance: Yes Side effects from medications: No Attending Groups: Yes Review of Systems Constitutional: Reports as per HPI Eyes: Reports as per HPI Reports as per HPI Cardiovascular: Reports as per HPI Respiratory: Reports as per HPI Gastrointestinal: Reports as per HPI Genitourinary: Reports as per HPI Musculoskeletal: Reports as per HPI Skin/Breast: Reports as per HPI Reports as per HPI Psychiatric: Reports as per HPI Endocrine: Reports as per HPI Hematologic/Lymphatic: Reports as per HPI Allergic/Immunologic: Reports as per HPI Mental Status Exam Mental Status Exam Patient Appearance: Appropriate Patient Orientation: Person, Place and Situation Level of Consciousness: Awake and Appropriate Patient Behavior: Guarded and Passive Mood Description: Calm and Withdrawn Affect Description: Calm Patient Cognition Impaired: Yes Ability to Follow Directions: Good Speech Pattern: Clear 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 Thought Process: Slowed Thinking Diagnostics Vital Signs (24Hr): Vital Signs - 24 hr 10/22/23 20:00 10/23/23 07:56 Temperature 98 F 97.7 F Pulse Rate 84 99 Respiratory Rate 16 16 Blood Pressure 115/70 134/72 Pulse Oximetry 98 97 Oxygen Delivery Method Room Air Room Air BMI result Body Mass Index 31.3 Labs 09/10/23 20:00 10/17/23 08:49 Labs: Laboratory Results - last 48 hr 10/21/23 10/21/23 10/21/23 12:28 17:19 21:09 POC Glucose 66 256 H 127 H 10/22/23 10/22/23 10/22/23 08:47 12:47 17:39 POC Glucose 119 H 135 H 103 10/22/23 10/23/23 21:31 08:29 POC Glucose 191 H 99 Imaging Radiology Impressions: ITS Impressions Brain MRI 09/19/23 20:33 IMPRESSION: 1. No demonstrated acute intracranial abnormalities. 2. Chronic mild to moderate nonspecific white matter changes, most notably in the deep white matter of the right frontal lobe. Mild to moderate generalized cerebral volume loss. Medications Medications Current Medications Acetaminophen (Acetaminophen 325 Mg Tablet) 650 mg PO Q6H PRN PRN Reason: Headache/Pain Mild Scale (1-3) Last Admin: 10/13/23 09:39 Dose: 650 mg Al Hydroxide/Mg Hydroxide (Magnesium Hydrox/Alum Hydrox 30 Ml Oral.Susp) 30 ml PO Q6H PRN PRN Reason: Heartburn/Nausea Aripiprazole (Aripiprazole 10 Mg Tablet) 10 mg PO BEDTIME [facility] Last Admin: 10/22/23 21:56 Dose: 10 mg Benztropine Mesylate (Benztropine Mesylate 0.5 Mg Tablet) 0.5 mg PO TID PRN PRN Reason: Extrapyramidal Effects Glucose (Glucose Gel 15 Gm Gel..Gram.) 15 gm PO Q15M PRN; Protocol PRN Reason: per Hypoglycemia Standing Ord. Hydroxyzine HCl (Hydroxyzine Hcl 25 Mg Tablet) 25 mg PO Q6H PRN PRN Reason: Anxiety Last Admin: 10/19/23 21:55 Dose: 25 mg Dextrose (D10) 250 mls @ 750 mls/hr IV Q15M PRN; Protocol PRN Reason: per Hypoglycemia Standing Ord. Insulin Glargine (Insulin Glargine,Hum.Rec.Anlog 100 Unit/Ml 10 Ml Vial) 20 unit SUBCUT BEDTIME [facility] Last Admin: 10/22/23 21:57 Dose: 20 unit Insulin Human Lispro (Insulin Lispro 100 Unit/Ml 3 Ml Vial) 0 unit SUBCUT QIDACHS [facility]; Protocol Last Admin: 10/22/23 21:58 Dose: 2 unit Lamotrigine (Lamotrigine 100 Mg Tablet) 100 mg PO BEDTIME [facility] Last Admin: 10/22/23 21:56 Dose: 100 mg Levothyroxine Sodium (Levothyroxine Sodium 200 Mcg Tablet) 200 mcg PO DAILY [facility] Last Admin: 10/22/23 09:05 Dose: 200 mcg Magnesium Hydroxide (Milk Of Magnesia 30 Ml Oral.Susp) 30 ml PO DAILY PRN PRN Reason: Constipation Memantine (Memantine Hcl 5 Mg Tablet) 5 mg PO BID [facility] Last Admin: 10/22/23 21:56 Dose: 5 mg Metformin HCl (Metformin Hcl Er 500 Mg Tab.Er.24h) 1,000 mg PO DAILY@1700 [facility] Last Admin: 10/22/23 17:34 Dose: 1,000 mg Nicotine Polacrilex (Nicotine Polacrilex 2 Mg Gum) 4 mg BUCCAL Q2H PRN PRN Reason: Nicotine Cravings Sertraline HCl (Sertraline Hcl 100 Mg Tablet) 100 mg PO DAILY [facility] Last Admin: 10/22/23 09:05 Dose: 100 mg Trazodone HCl (Trazodone Hcl 50 Mg Tablet) 50 mg PO BEDTIME [facility] PRN PRN Reason: Insomnia Last Admin: 10/19/23 21:55 Dose: 50 mg Allergies Allergies Allergy/AdvReac Type Severity Reaction Status Date / Time amoxicillin [AMOXICILLIN] Allergy Mild VOMITING/ABD Verified 09/10/23 19:44 PAIN Assessment & Plan Assessment & Plan (1) Schizoaffective disorder: Status: Acute Code(s): F25.9 - Schizoaffective disorder, unspecified (2) Hypothyroidism: Status: Acute Code(s): E03.9 - Hypothyroidism, unspecified (3) Type 2 diabetes mellitus: Status: Acute Code(s): E11.9 - Type 2 diabetes mellitus without complications Plan Patient is a 58 year old male with hx of Schizoaffective d/o and hypothyroid disorder/thyroid coma, stroke and brain aneurysm, who was brought to [facility] ER on a Section 12 d/t disorganized behavior, concern for his memory impairment, medications noncompliance and poor ADLs. Plan: CV 15 minute safety checks Continue home medications: Haldol 10mg PO daily Synthroid 200mcg PO daily Obtain labs; A1C/POCs Obtain collateral from sister Obtain records from last hospitalization. MOCA Referral for [facility] services if patient is agreeable. encourage medication compliance;consider [facility]AS discharge planning 09/11: Elevated fasting blood sugar elevated hemoglobin A1c 9.2 med consult placed put in point of care needed will start metformin Would benefit from clarity over recent hospitalization what this were done details regarding treatment continue Haldol unclear if patient has Healthcare proxy his Angelina was low slowed cognition with poor details in depth at times during blankly regarding making judgments Unclear if any of this relates to past coma or 2 hypothyroidism. He does seem more impaired than when last seen unclear when last imaging was. Continue Haldol sitter neuro indira involvement regarding diagnostic picture. Patient does remain paranoid blunted suspicious apathetic. He might benefit from longer- term placement if available and appropriate at a later time involved [facility] involvement would be quite helpful 09/12: cont haldol get records ? hcp ? start antidep unclear hx 09/13: Keeping to self. More talkative today. Pt concerned he will be transferred to [facility]. Pt stated, The paper I signed yesterday. Are you going to send me back to the last hospital? That place was horrible . Pt was educated he signed a release of information with Dr. Gonzalez to obtain records from [facility]. Pt was given a copy of the release he signed. Despite this, pt continues to be anxious about being transferred. Pt denies SI/HI/VH/AH. 09/14: Keeping to self. active on unit. showered. Pt reports feeling alright today; pt reports he is worried about where I'm going to go . Pt continues concerned he will be transferred to [facility]. Pt denies SI/HI/VH/AH. 09/15:Pt reports feeling alright today; pt continues to report he is worried about where I'm going to go . Responding with brief responses. Guarded. Observed standing in one place for a long period of time. Appears confused. Pt denies SI/HI/VH/AH. T/W spoke to patient's sister, Ros, with patients verbal consent. Ros reports concerns regarding patients ability to make decisions regarding his mental and physical health. She plans on contacting legal advice on obtaining guardianship of patient. 09/16:Patient's presents similar to yesterday's presentation. Responding with brief responses. Guarded. Observed standing in one place for a long period of time, when asked what he is doing, pt stated, I don't know . Pt reports he plans on contacting his sister today and try to convince her for me to stay there . Pt denies SI/HI/VH/AH. Continue current tx plan. 09/17: brief responses. Guarded. 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 Pt denies SI/HI/VH/AH. T/W and Dr. Gonzalez spoke to patient's sister, Ros. Ros stated being [facility] HCP and plans on finding document. She plans on coming to the hospital on Saturday to be present for [facility] intake. 09/22/2023: No changes 09/23/2023 Patient flat apathetic difficult insight and judgment his sister is healthcare proxy if needed patient is accepting medical treatment Referral to [facility] 09/24/23 Considers starting Haldol Decanoate patient is agreeable superficially difficulty with exec fx was seen [facility] 09/25/23 Pt seen in f/u mood flat dysphoric difficulty engaging in conversation preoccupied with thought he wont be living with family thing slowed apathetic no clear response with namenda ? some improvement inc lamictal start low dose sertraline inc lamictal ck tsh 09/26/2023 Start Abilify as augmentation with Haldol see if can be more stimulating regarding depressed mood apathetic limited engagement sertraline 50 mg Lamictal 25 b.i.d. referral to [facility] which would have structure unclear if patient can engage with this he remains quite depressed has delusional beliefs regarding housing and that things have been done he has repeatedly tried to reach out to his sister denies active SI needs much help dressing talking with others encouragement to eat severe thought blocking Abilify might be more stimulating than Haldol which can be more dulling 09/27/23 Abilifwaldemar started sertraline Lamictal encouraged step-down to [facility] encourage reality orientation denies active SI 09/27: Continue current regimen and plans 09/28: Continue current regimen and plans. 09/30/2023 Referral to [facility] increase Abilify to 5 mg daily eventually try and taper Haldol sertraline 50 mg daily 10/01/2023 Increase Abilify to 10 mg lower Haldol to 7 mg continue sertraline and Lamictal 10/02/2023 Abilify increased to 10 mg continue to taper Haldol sertraline 100 mg Lamictal increased to 75 mg patient apathetic withdrawn difficulty with placement some paranoia continues difficulty with decision making at times. Not physically aggressive internally preoccupied seems somewhat improved with Abilify sertraline Continue discharge planning 10/03/2023 Patient somewhat blunted flat slowed thinking during the day times staring. Change Abilify to 10 mg at bedtime. Scheduled Haldol will lowered to 2.5 mg Continue sertraline 100 mg Namenda 5 b.i.d. 10/04/2023 . Haldol discontinued modafinil low-dose monitor for psychosis or agitation continue discharge planning 10/07/2023 May need to firm healthcare proxy calls have been placed to sister to try to help in discharge planning. Referrals made. Patient cooperative with care 10/08/2023 Pharmacy ordering Abilify maintain a increase modafinil 100 mg patient remains flat passive depressed some improvement noted no current paranoia noted continue discharge planning no current safe discharge plan 10/09/2023 Increase Lamictal 100 mg Abilify Maintena 400 mg hold modafinil unclear if was overly stimulating patient continues to present internally preoccupied. 10/10/23 Healthcare proxy invoked discharge planning continue Lamictal Abilify pending maintain a 10/11/2023 Healthcare proxy invoked new CV signed discharge planning. 10/11 keep same treatment 10/12 keep same treatment 10/14/2023 Continue plan of care Lamictal Abilify discharge planning sertraline 10/14: stable. continue current mgmt. 10/15: stable. continue current mgmt. 10/16: stable presentation. continue current mgmt. 10/17: as for yesterday. 10/18: no changes. 10/19: stabel, safe. no change. 10/20: no change in presentation. calm, cooperative. active on unit, social with select peers, attending groups. Pt reports feeling alright . denies SI/HI/VH/AH. Social work waiting to hear from possible placement location. Continue current tx plan. 10/21: continue current tx plan. awaiting placement. 10/22: calm, cooperative. active on unit, social with select peers, attending groups. Pt reports feeling good ; pt stated, I'm waiting to see where I'm going . denies SI/HI/VH/AH. Showered with encouragement. Patient educated on: diagnosis and medication risk/benefits Reason for continued inpatient stay Substantial Risk for: med/psych decompensation Time Spent With Patient Time: Total time managing care of this patient today _20___ minutes.
[2023-10-23] MEDS: Levothyroxine Sodium 200 MCG TABLET PO (09:27)
[2023-10-23] MEDS: Sertraline HCL 100 MG TABLET PO (09:27)
[2023-10-23] MEDS: Memantine HCl 5 MG TABLET PO ×2 (09:27→20:09)
[2023-10-23 12:58] LABS: Glucose, Whole Blood 122 mg/dL (60-115)
[2023-10-23] MEDS: metFORMIN HCl ER 500 MG TAB.ER.24H 1000 MG PO (17:29)
[2023-10-23 17:42] LABS: Glucose, Whole Blood 205 mg/dL (60-115)
[2023-10-23] MEDS: Insulin Lispro 100 UNIT/ML 3 ML VIAL SUBCUT ×2 (17:52→20:09)
[2023-10-23 19:35] VITALS: BP 123/72; PULSE 80; RESP 16; TEMP 36.2; O2SAT 97
[2023-10-23 19:58] LABS: Glucose, Whole Blood 160 mg/dL (60-115)
[2023-10-23] MEDS: lamoTRIgine 100 MG TABLET PO (20:09)
[2023-10-23] MEDS: ARIPiprazole 10 MG TABLET PO (20:09)
[2023-10-23] MEDS: Insulin Glargine,Hum.rec.anlog 100 UNIT/ML 10 ML VIAL 20 UNIT SUBCUT (20:09)
[2023-10-24 07:00] VITALS: BMI 31.2
[2023-10-24 07:52] VITALS: BP 142/77; PULSE 106; RESP 16; TEMP 36.4; O2SAT 95
[2023-10-24 08:50] LABS: Glucose, Whole Blood 271 mg/dL (60-115)
[2023-10-24] MEDS: Insulin Lispro 100 UNIT/ML 3 ML VIAL SUBCUT ×3 (09:02→21:00)
[2023-10-24] MEDS: Sertraline HCL 100 MG TABLET PO (09:03)
[2023-10-24] MEDS: Levothyroxine Sodium 200 MCG TABLET PO (09:03)
[2023-10-24] MEDS: Memantine HCl 5 MG TABLET PO ×2 (09:04→21:00)
[2023-10-24 09:15] LABS: Creatinine Clr Calc Pharmacy 100.5; Estimated Glomerular Filt Rate > 60
[2023-10-24] MEDS: hydrOXYzine HCL 25 MG TABLET PO (12:18)
[2023-10-24 12:35] LABS: Glucose, Whole Blood 105 mg/dL (60-115)
--- NOTE | 2023-10-24 13:16 | P.PNPSI_ITS ---
Subjective Subjective Date of Service: 10/24/23 Reason For Visit: paranoia cognitive impairment Subjective Notes: Conditional Voluntary Interim History: Reviewed with Dr. Gonzalez. calm, cooperative. active on unit, social with select peers, attending groups. Pt reports feeling good ; similar to yesterdays presentation. Medication Compliance: Yes Side effects from medications: No Attending Groups: Yes Review of Systems Constitutional: Reports as per HPI Eyes: Reports as per HPI Reports as per HPI Cardiovascular: Reports as per HPI Respiratory: Reports as per HPI Gastrointestinal: Reports as per HPI Genitourinary: Reports as per HPI Musculoskeletal: Reports as per HPI Skin/Breast: Reports as per HPI Reports as per HPI Psychiatric: Reports as per HPI Endocrine: Reports as per HPI Hematologic/Lymphatic: Reports as per HPI Allergic/Immunologic: Reports as per HPI Mental Status Exam Mental Status Exam Patient Appearance: Appropriate Patient Orientation: Person, Place and Situation Level of Consciousness: Awake and Appropriate Patient Behavior: Guarded and Passive Mood Description: Calm and Withdrawn Affect Description: Calm Patient Cognition Impaired: Yes Ability to Follow Directions: Good Speech Pattern: Clear 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: Director Educational Radio Impaired Diagnostics Vital Signs (24Hr): Vital Signs - 24 hr 10/23/23 19:35 10/24/23 07:52 Temperature 97.1 F 97.6 F Pulse Rate 80 106 H Respiratory Rate 16 16 Blood Pressure 123/72 142/77 H Pulse Oximetry 97 95 Oxygen Delivery Method Room Air BMI result Body Mass Index 31.2 Labs 09/10/23 20:00 10/24/23 08:50 Labs: Laboratory Results - last 48 hr 10/22/23 10/22/23 10/23/23 17:39 21:31 08:29 Creatinine Estim Creat Clear Calc Estimated GFR POC Glucose 103 191 H 99 10/23/23 10/23/23 10/23/23 12:54 17:38 19:53 Creatinine Estim Creat Clear Calc Estimated GFR POC Glucose 122 H 205 H 160 H 10/24/23 10/24/23 10/24/23 08:46 08:50 12:27 Creatinine 0.91 Estim Creat Clear Calc 100.5 Estimated GFR > 60 POC Glucose 271 H 105 Imaging Radiology Impressions: ITS Impressions Brain MRI 09/19/23 20:33 IMPRESSION: 1. No demonstrated acute intracranial abnormalities. 2. Chronic mild to moderate nonspecific white matter changes, most notably in the deep white matter of the right frontal lobe. Mild to moderate generalized cerebral volume loss. Medications Medications Current Medications Acetaminophen (Acetaminophen 325 Mg Tablet) 650 mg PO Q6H PRN PRN Reason: Headache/Pain Mild Scale (1-3) Last Admin: 10/13/23 09:39 Dose: 650 mg Al Hydroxide/Mg Hydroxide (Magnesium Hydrox/Alum Hydrox 30 Ml Oral.Susp) 30 ml PO Q6H PRN PRN Reason: Heartburn/Nausea Aripiprazole (Aripiprazole 10 Mg Tablet) 10 mg PO BEDTIME [facility] Last Admin: 10/23/23 20:09 Dose: 10 mg Benztropine Mesylate (Benztropine Mesylate 0.5 Mg Tablet) 0.5 mg PO TID PRN PRN Reason: Extrapyramidal Effects Glucose (Glucose Gel 15 Gm Gel..Gram.) 15 gm PO Q15M PRN; Protocol PRN Reason: per Hypoglycemia Standing Ord. Hydroxyzine HCl (Hydroxyzine Hcl 25 Mg Tablet) 25 mg PO Q6H PRN PRN Reason: Anxiety Last Admin: 10/24/23 12:18 Dose: 25 mg Dextrose (D10) 250 mls @ 750 mls/hr IV Q15M PRN; Protocol PRN Reason: per Hypoglycemia Standing Ord. Insulin Glargine (Insulin Glargine,Hum.Rec.Anlog 100 Unit/Ml 10 Ml Vial) 20 unit SUBCUT BEDTIME [facility] Last Admin: 10/23/23 20:09 Dose: 20 unit Insulin Human Lispro (Insulin Lispro 100 Unit/Ml 3 Ml Vial) 0 unit SUBCUT QIDACHS [facility]; Protocol Last Admin: 10/24/23 12:38 Dose: Not Given Lamotrigine (Lamotrigine 100 Mg Tablet) 100 mg PO BEDTIME [facility] Last Admin: 10/23/23 20:09 Dose: 100 mg Levothyroxine Sodium (Levothyroxine Sodium 200 Mcg Tablet) 200 mcg PO DAILY [facility] Last Admin: 10/24/23 09:03 Dose: 200 mcg Magnesium Hydroxide (Milk Of Magnesia 30 Ml Oral.Susp) 30 ml PO DAILY PRN PRN Reason: Constipation Memantine (Memantine Hcl 5 Mg Tablet) 5 mg PO BID [facility] Last Admin: 10/24/23 09:04 Dose: 5 mg Metformin HCl (Metformin Hcl Er 500 Mg Tab.Er.24h) 1,000 mg PO DAILY@1700 [facility] Last Admin: 10/23/23 17:29 Dose: 1,000 mg Nicotine Polacrilex (Nicotine Polacrilex 2 Mg Gum) 4 mg BUCCAL Q2H PRN PRN Reason: Nicotine Cravings Sertraline HCl (Sertraline Hcl 100 Mg Tablet) 100 mg PO DAILY [facility] Last Admin: 10/24/23 09:03 Dose: 100 mg Trazodone HCl (Trazodone Hcl 50 Mg Tablet) 50 mg PO BEDTIME [facility]X1 PRN PRN Reason: Insomnia Last Admin: 10/19/23 21:55 Dose: 50 mg Allergies Allergies Allergy/AdvReac Type Severity Reaction Status Date / Time amoxicillin [AMOXICILLIN] Allergy Mild VOMITING/ABD Verified 09/10/23 19:44 PAIN Assessment & Plan Assessment & Plan (1) Schizoaffective disorder: Status: Acute Code(s): F25.9 - Schizoaffective disorder, unspecified (2) Hypothyroidism: Status: Acute Code(s): E03.9 - Hypothyroidism, unspecified (3) Type 2 diabetes mellitus: Status: Acute Code(s): E11.9 - Type 2 diabetes mellitus without complications Plan Patient is a 58 year old male with hx of Schizoaffective d/o and hypothyroid disorder/thyroid coma, stroke and brain aneurysm, who was brought to [facility] ER on a Section 12 d/t disorganized behavior, concern for his memory impairment, medications noncompliance and poor ADLs. Plan: CV 15 minute safety checks Continue home medications: Haldol 10mg PO daily Synthroid 200mcg PO daily Obtain labs; A1C/POCs Obtain collateral from sister Obtain records from last hospitalization. MOCA Referral for [facility] services if patient is agreeable. encourage medication compliance;consider [facility]ARGAS discharge planning 09/11: Elevated fasting blood sugar elevated hemoglobin A1c 9.2 med consult placed put in point of care needed will start metformin Would benefit from clarity over recent hospitalization what this were done details regarding treatment continue Haldol unclear if patient has Healthcare proxy his Antimony was low slowed cognition with poor details in depth at times during blankly regarding making judgments Unclear if any of this relates to past coma or 2 hypothyroidism. He does seem more impaired than when last seen unclear when last imaging was. Continue Haldol sitter neuro indira involvement regarding diagnostic picture. Patient does remain paranoid blunted suspicious apathetic. He might benefit from longer- term placement if available and appropriate at a later time involved [facility] involvement would be quite helpful 09/12: cont haldol get records ? hcp ? start antidep unclear hx 09/13: Keeping to self. More talkative today. Pt concerned he will be transferred to [facility]. Pt stated, The paper I signed yesterday. Are you going to send me back to the last hospital? That place was horrible . Pt was educated he signed a release of information with Dr. Gonzalez to obtain records from [facility]. Pt was given a copy of the release he signed. Despite this, pt continues to be anxious about being transferred. Pt denies SI/HI/VH/AH. 09/14: Keeping to self. active on unit. showered. Pt reports feeling alright today; pt reports he is worried about where I'm going to go . Pt continues concerned he will be transferred to [facility]. Pt denies SI/HI/VH/AH. 09/15:Pt reports feeling alright today; pt continues to report he is worried about where I'm going to go . Responding with brief responses. Guarded. Observed standing in one place for a long period of time. Appears confused. Pt denies SI/HI/VH/AH. T/W spoke to patient's sister, Ros, with patients verbal consent. Ros reports concerns regarding patients ability to make decisions regarding his mental and physical health. She plans on contacting legal advice on obtaining guardianship of patient. 09/16:Patient's presents similar to yesterday's presentation. Responding with brief responses. Guarded. Observed standing in one place for a long period of time, when asked what he is doing, pt stated, I don't know . Pt reports he plans on contacting his sister today and try to convince her for me to stay there . Pt denies SI/HI/VH/AH. Continue current tx plan. 09/17: brief responses. Guarded. 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 Pt denies SI/HI/VH/AH. T/W and Dr. Gonzalez spoke to patient's sister, Ros. Ros stated being [facility] HCP and plans on finding document. She plans on coming to the hospital on Saturday to be present for [facility] intake. 09/22/2023: No changes 09/23/2023 Patient flat apathetic difficult insight and judgment his sister is healthcare proxy if needed patient is accepting medical treatment Referral to [facility] 09/24/23 Considers starting Haldol Decanoate patient is agreeable superficially difficulty with exec fx was seen [facility] 09/25/23 Pt seen in f/u mood flat dysphoric difficulty engaging in conversation preoccupied with thought he wont be living with family thing slowed apathetic no clear response with namenda ? some improvement inc lamictal start low dose sertraline inc lamictal ck tsh 09/26/2023 Start Abilify as augmentation with Haldol see if can be more stimulating regarding depressed mood apathetic limited engagement sertraline 50 mg Lamictal 25 b.i.d. referral to [facility] which would have structure unclear if patient can engage with this he remains quite depressed has delusional beliefs regarding housing and that things have been done he has repeatedly tried to reach out to his sister denies active SI needs much help dressing talking with others encouragement to eat severe thought blocking Abilify might be more stimulating than Haldol which can be more dulling 09/27/23 Abilify started sertraline Lamictal encouraged step-down to [facility] encourage reality orientation denies active SI 09/27: Continue current regimen and plans 09/28: Continue current regimen and plans. 09/30/2023 Referral to [facility] increase Abilify to 5 mg daily eventually try and taper Haldol sertraline 50 mg daily 10/01/2023 Increase Abilify to 10 mg lower Haldol to 7 mg continue sertraline and Lamictal 10/02/2023 Abilify increased to 10 mg continue to taper Haldol sertraline 100 mg Lamictal increased to 75 mg patient apathetic withdrawn difficulty with placement some paranoia continues difficulty with decision making at times. Not physically aggressive internally preoccupied seems somewhat improved with Abilify sertraline Continue discharge planning 10/03/2023 Patient somewhat blunted flat slowed thinking during the day times staring. Change Abilify to 10 mg at bedtime. Scheduled Haldol will lowered to 2.5 mg Continue sertraline 100 mg Namenda 5 b.i.d. 10/04/2023 . Haldol discontinued modafinil low-dose monitor for psychosis or agitation continue discharge planning 10/07/2023 May need to firm healthcare proxy calls have been placed to sister to try to help in discharge planning. Referrals made. Patient cooperative with care 10/08/2023 Pharmacy ordering Abilify maintain a increase modafinil 100 mg patient remains flat passive depressed some improvement noted no current paranoia noted continue discharge planning no current safe discharge plan 10/09/2023 Increase Lamictal 100 mg Abilify Maintena 400 mg hold modafinil unclear if was overly stimulating patient continues to present internally preoccupied. 10/10/23 Healthcare proxy invoked discharge planning continue Lamictal Abilify pending maintain a 10/11/2023 Healthcare proxy invoked new CV signed discharge planning. 10/11 keep same treatment 10/12 keep same treatment 10/14/2023 Continue plan of care Lamictal Abilify discharge planning sertraline 10/14: stable. continue current mgmt. 10/15: stable. continue current mgmt. 10/16: stable presentation. continue current mgmt. 10/17: as for yesterday. 10/18: no changes. 10/19: stabel, safe. no change. 10/20: no change in presentation. calm, cooperative. active on unit, social with select peers, attending groups. Pt reports feeling alright . denies SI/HI/VH/AH. Social work waiting to hear from possible placement location. Continue current tx plan. 10/21: continue current tx plan. awaiting placement. 10/22: calm, cooperative. active on unit, social with select peers, attending groups. Pt reports feeling good ; pt stated, I'm waiting to see where I'm going . denies SI/HI/VH/AH. Showered with encouragement. 10/23: continue current tx plan. Patient educated on: medication risk/benefits Reason for continued inpatient stay Substantial Risk for: other (waiting for placement.) Time Spent With Patient Time: Total time managing care of this patient today _20___ minutes.
[2023-10-24 17:25] LABS: Glucose, Whole Blood 245 mg/dL (60-115)
[2023-10-24] MEDS: metFORMIN HCl ER 500 MG TAB.ER.24H 1000 MG PO (17:42)
[2023-10-24 19:55] VITALS: BP 136/71; PULSE 80; RESP 16; TEMP 36.8; O2SAT 97
[2023-10-24 20:57] LABS: Glucose, Whole Blood 215 mg/dL (60-115)
[2023-10-24] MEDS: ARIPiprazole 10 MG TABLET PO (20:59)
[2023-10-24] MEDS: lamoTRIgine 100 MG TABLET PO (20:59)
[2023-10-24] MEDS: Insulin Glargine,Hum.rec.anlog 100 UNIT/ML 10 ML VIAL 20 UNIT SUBCUT (21:00)
[2023-10-25 07:35] VITALS: BP 119/71; PULSE 83; RESP 20; TEMP 36.9; O2SAT 95
[2023-10-25 08:44] LABS: Glucose, Whole Blood 100 mg/dL (60-115)
--- NOTE | 2023-10-25 09:04 | HO.PSYCHPN ---
Subjective Subjective Date of Service: 10/25/23 Reason For Visit: paranoia cognitive impairment Subjective Notes: Conditional Voluntary Interim History: Reviewed with Dr. Gonzalez. calm, cooperative. active on unit, social with select peers, attending groups. Pt reports feeling good ; pt stated, I just want a place to live . Medication Compliance: Yes Side effects from medications: No Attending Groups: Yes Review of Systems Constitutional: Reports as per HPI Eyes: Reports as per HPI Reports as per HPI Cardiovascular: Reports as per HPI Respiratory: Reports as per HPI Gastrointestinal: Reports as per HPI Genitourinary: Reports as per HPI Musculoskeletal: Reports as per HPI Skin/Breast: Reports as per HPI Reports as per HPI Psychiatric: Reports as per HPI Endocrine: Reports as per HPI Hematologic/Lymphatic: Reports as per HPI Allergic/Immunologic: Reports as per HPI Mental Status Exam Mental Status Exam Patient Appearance: Appropriate Patient Orientation: Person, Place and Situation Level of Consciousness: Awake and Appropriate Patient Behavior: Guarded and Passive Mood Description: Calm and Withdrawn Affect Description: Calm Patient Cognition Impaired: Yes Ability to Follow Directions: Good Speech Pattern: Clear 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: Line Fisher Impaired Diagnostics Vital Signs (24Hr): Vital Signs - 24 hr 10/24/23 19:55 10/25/23 07:35 Temperature 98.2 F 98.5 F Pulse Rate 80 83 Respiratory Rate 16 20 Blood Pressure 136/71 119/71 Pulse Oximetry 97 95 Oxygen Delivery Method Room Air Room Air BMI result Body Mass Index 31.2 Labs 09/10/23 20:00 10/24/23 08:50 Labs: Laboratory Results - last 48 hr 10/23/23 10/23/23 10/23/23 12:54 17:38 19:53 Creatinine Estim Creat Clear Calc Estimated GFR POC Glucose 122 H 205 H 160 H 10/24/23 10/24/23 10/24/23 08:46 08:50 12:27 Creatinine 0.91 Estim Creat Clear Calc 100.5 Estimated GFR > 60 POC Glucose 271 H 105 10/24/23 10/24/23 10/25/23 17:21 20:53 08:37 Creatinine Estim Creat Clear Calc Estimated GFR POC Glucose 245 H 215 H 100 Imaging Radiology Impressions: ITS Impressions Brain MRI 09/19/23 20:33 IMPRESSION: 1. No demonstrated acute intracranial abnormalities. 2. Chronic mild to moderate nonspecific white matter changes, most notably in the deep white matter of the right frontal lobe. Mild to moderate generalized cerebral volume loss. Medications Medications Current Medications Acetaminophen (Acetaminophen 325 Mg Tablet) 650 mg PO Q6H PRN PRN Reason: Headache/Pain Mild Scale (1-3) Last Admin: 10/13/23 09:39 Dose: 650 mg Al Hydroxide/Mg Hydroxide (Magnesium Hydrox/Alum Hydrox 30 Ml Oral.Susp) 30 ml PO Q6H PRN PRN Reason: Heartburn/Nausea Aripiprazole (Aripiprazole 10 Mg Tablet) 10 mg PO BEDTIME [facility] Last Admin: 10/24/23 20:59 Dose: 10 mg Benztropine Mesylate (Benztropine Mesylate 0.5 Mg Tablet) 0.5 mg PO TID PRN PRN Reason: Extrapyramidal Effects Glucose (Glucose Gel 15 Gm Gel..Gram.) 15 gm PO Q15M PRN; Protocol PRN Reason: per Hypoglycemia Standing Ord. Hydroxyzine HCl (Hydroxyzine Hcl 25 Mg Tablet) 25 mg PO Q6H PRN PRN Reason: Anxiety Last Admin: 10/24/23 12:18 Dose: 25 mg Dextrose (D10) 250 mls @ 750 mls/hr IV Q15M PRN; Protocol PRN Reason: per Hypoglycemia Standing Ord. Insulin Glargine (Insulin Glargine,Hum.Rec.Anlog 100 Unit/Ml 10 Ml Vial) 20 unit SUBCUT BEDTIME [facility] Last Admin: 10/24/23 21:00 Dose: 20 unit Insulin Human Lispro (Insulin Lispro 100 Unit/Ml 3 Ml Vial) 0 unit SUBCUT QIDACHS [facility]; Protocol Last Admin: 10/24/23 21:00 Dose: 4 unit Lamotrigine (Lamotrigine 100 Mg Tablet) 100 mg PO BEDTIME [facility] Last Admin: 10/24/23 20:59 Dose: 100 mg Levothyroxine Sodium (Levothyroxine Sodium 200 Mcg Tablet) 200 mcg PO DAILY [facility] Last Admin: 10/24/23 09:03 Dose: 200 mcg Magnesium Hydroxide (Milk Of Magnesia 30 Ml Oral.Susp) 30 ml PO DAILY PRN PRN Reason: Constipation Memantine (Memantine Hcl 5 Mg Tablet) 5 mg PO BID [facility] Last Admin: 10/24/23 21:00 Dose: 5 mg Metformin HCl (Metformin Hcl Er 500 Mg Tab.Er.24h) 1,000 mg PO DAILY@1700 [facility] Last Admin: 10/24/23 17:42 Dose: 1,000 mg Nicotine Polacrilex (Nicotine Polacrilex 2 Mg Gum) 4 mg BUCCAL Q2H PRN PRN Reason: Nicotine Cravings Sertraline HCl (Sertraline Hcl 100 Mg Tablet) 100 mg PO DAILY [facility] Last Admin: 10/24/23 09:03 Dose: 100 mg Trazodone HCl (Trazodone Hcl 50 Mg Tablet) 50 mg PO BEDTIME MRX1 PRN PRN Reason: Insomnia Last Admin: 10/19/23 21:55 Dose: 50 mg Allergies Allergies Allergy/AdvReac Type Severity Reaction Status Date / Time amoxicillin [AMOXICILLIN] Allergy Mild VOMITING/ABD Verified 09/10/23 19:44 PAIN Assessment & Plan Assessment & Plan (1) Schizoaffective disorder: Status: Acute Code(s): F25.9 - Schizoaffective disorder, unspecified (2) Hypothyroidism: Status: Acute Code(s): E03.9 - Hypothyroidism, unspecified (3) Type 2 diabetes mellitus: Status: Acute Code(s): E11.9 - Type 2 diabetes mellitus without complications Plan Patient is a 58 year old male with hx of Schizoaffective d/o and hypothyroid disorder/thyroid coma, stroke and brain aneurysm, who was brought to [facility] on a [address] d/t disorganized behavior, concern for his memory impairment, medications noncompliance and poor ADLs. Plan: CV 15 minute safety checks Continue home medications: Haldol 10mg PO daily Synthroid 200mcg PO daily Obtain labs; A1C/POCs Obtain collateral from sister Obtain records from last hospitalization. MOCA Referral for [facility] services if patient is agreeable. encourage medication compliance;consider VARGAS discharge planning 09/11: Elevated fasting blood sugar elevated hemoglobin A1c 9.2 med consult placed put in point of care needed will start metformin Would benefit from clarity over recent hospitalization what this were done details regarding treatment continue Haldol unclear if patient has Healthcare proxy his [place] was low slowed cognition with poor details in depth at times during blankly regarding making judgments Unclear if any of this relates to past coma or 2 hypothyroidism. He does seem more impaired than when last seen unclear when last imaging was. Continue Haldol sitter neuro indira involvement regarding diagnostic picture. Patient does remain paranoid blunted suspicious apathetic. He might benefit from longer-term placement if available and appropriate at a later time involved [facility] involvement would be quite helpful 09/12: cont haldol get records ? hcp ? start antidep unclear hx 09/13: Keeping to self. More talkative today. Pt concerned he will be transferred to [facility]. Pt stated, The paper I signed yesterday. Are you going to send me back to the last hospital? That place was horrible . Pt was educated he signed a release of information with Dr. Gonzalez to obtain records from [facility]. Pt was given a copy of the release he signed. Despite this, pt continues to be anxious about being transferred. Pt denies SI/HI/VH/AH. 09/14: Keeping to self. active on unit. showered. Pt reports feeling alright today; pt reports he is worried about where I'm going to go . Pt continues concerned he will be transferred to [facility]. Pt denies SI/HI/VH/AH. 09/15:Pt reports feeling alright today; pt continues to report he is worried about where I'm going to go . Responding with brief responses. Guarded. Observed standing in one place for a long period of time. Appears confused. Pt denies SI/HI/VH/AH. T/W spoke to patient's sister, Ros, with patients verbal consent. Ros reports concerns regarding patients ability to make decisions regarding his mental and physical health. She plans on contacting legal advice on obtaining guardianship of patient. 09/16:Patient's presents similar to yesterday's presentation. Responding with brief responses. Guarded. Observed standing in one place for a long period of time, when asked what he is doing, pt stated, I don't know . Pt reports he plans on contacting his sister today and try to convince her for me to stay there . Pt denies SI/HI/VH/AH. Continue current tx plan. 09/17: brief responses. Guarded. 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 Pt denies SI/HI/VH/AH. T/W and Dr. Gonzalez spoke to patient's sister, Ros. Ros stated being [facility] HCP and plans on finding document. She plans on coming to the hospital on Saturday to be present for [facility] intake. 09/22/2023: No changes 09/23/2023 Patient flat apathetic difficult insight and judgment his sister is healthcare proxy if needed patient is accepting medical treatment Referral to [facility] 09/24/23 Considers starting Haldol Decanoate patient is agreeable superficially difficulty with exec fx was seen [facility] 09/25/23 Pt seen in f/u mood flat dysphoric difficulty engaging in conversation preoccupied with thought he wont be living with family thing slowed apathetic no clear response with namenda ? some improvement inc lamictal start low dose sertraline inc lamictal ck tsh 09/26/2023 Start Abilify as augmentation with Haldol see if can be more stimulating regarding depressed mood apathetic limited engagement sertraline 50 mg Lamictal 25 b.i.d. referral to [facility] which would have structure unclear if patient can engage with this he remains quite depressed has delusional beliefs regarding housing and that things have been done he has repeatedly tried to reach out to his sister denies active SI needs much help dressing talking with others encouragement to eat severe thought blocking Abilify might be more stimulating than Haldol which can be more dulling 09/27/23 Abilinathaniel started sertraline Lamictal encouraged step-down to [facility] encourage reality orientation denies active SI 09/27: Continue current regimen and plans 09/28: Continue current regimen and plans. 09/30/2023 Referral to [facility] increase Abilify to 5 mg daily eventually try and taper Haldol sertraline 50 mg daily 10/01/2023 Increase Abilify to 10 mg lower Haldol to 7 mg continue sertraline and Lamictal 10/02/2023 Abilify increased to 10 mg continue to taper Haldol sertraline 100 mg Lamictal increased to 75 mg patient apathetic withdrawn difficulty with placement some paranoia continues difficulty with decision making at times. Not physically aggressive internally preoccupied seems somewhat improved with Abilify sertraline Continue discharge planning 10/03/2023 Patient somewhat blunted flat slowed thinking during the day times staring. Change Abilify to 10 mg at bedtime. Scheduled Haldol will lowered to 2.5 mg Continue sertraline 100 mg Namenda 5 b.i.d. 10/04/2023 . Haldol discontinued modafinil low-dose monitor for psychosis or agitation continue discharge planning 10/07/2023 May need to firm healthcare proxy calls have been placed to sister to try to help in discharge planning. Referrals made. Patient cooperative with care 10/08/2023 Pharmacy ordering Abilify maintain a increase modafinil 100 mg patient remains flat passive depressed some improvement noted no current paranoia noted continue discharge planning no current safe discharge plan 10/09/2023 Increase Lamictal 100 mg Abilify Maintena 400 mg hold modafinil unclear if was overly stimulating patient continues to present internally preoccupied. 10/10/23 Healthcare proxy invoked discharge planning continue Lamictal Abilify pending maintain a 10/11/2023 Healthcare proxy invoked new CV signed discharge planning. 10/11 keep same treatment 10/12 keep same treatment 10/14/2023 Continue plan of care Lamictal Abilify discharge planning sertraline 10/14: stable. continue current mgmt. 10/15: stable. continue current mgmt. 10/16: stable presentation. continue current mgmt. 10/17: as for yesterday. 10/18: no changes. 10/19: stabel, safe. no change. 10/20: no change in presentation. calm, cooperative. active on unit, social with select peers, attending groups. Pt reports feeling alright . denies SI/HI/VH/AH. Social work waiting to hear from possible placement location. Continue current tx plan. 10/21: continue current tx plan. awaiting placement. 10/22: calm, cooperative. active on unit, social with select peers, attending groups. Pt reports feeling good ; pt stated, I'm waiting to see where I'm going . denies SI/HI/VH/AH. Showered with encouragement. 10/23: continue current tx plan. 10/24: calm, cooperative. active on unit, social with select peers, attending groups. Pt reports feeling good ; pt stated, I just want a place to live . Patient educated on: diagnosis and medication risk/benefits Reason for continued inpatient stay Substantial Risk for: other Time Spent With Patient Time: Total time managing care of this patient today _20___ minutes.
[2023-10-25] MEDS: Sertraline HCL 100 MG TABLET PO (09:29)
[2023-10-25] MEDS: Levothyroxine Sodium 200 MCG TABLET PO (09:29)
[2023-10-25] MEDS: Memantine HCl 5 MG TABLET PO ×2 (09:30→21:16)
[2023-10-25] MEDS: Simethicone 80 MG TAB.CHEW PO ×3 (11:31→21:16)
[2023-10-25 12:57] LABS: Glucose, Whole Blood 117 mg/dL (60-115)
[2023-10-25 17:42] LABS: Glucose, Whole Blood 180 mg/dL (60-115)
[2023-10-25] MEDS: metFORMIN HCl ER 500 MG TAB.ER.24H 1000 MG PO (17:55)
[2023-10-25] MEDS: Insulin Lispro 100 UNIT/ML 3 ML VIAL SUBCUT ×2 (17:55→21:15)
[2023-10-25 20:00] VITALS: BP 119/68; PULSE 87; RESP 16; TEMP 36.7; O2SAT 98
[2023-10-25 20:45] LABS: Glucose, Whole Blood 197 mg/dL (60-115)
[2023-10-25] MEDS: Insulin Glargine,Hum.rec.anlog 100 UNIT/ML 10 ML VIAL 20 UNIT SUBCUT (21:15)
[2023-10-25] MEDS: hydrOXYzine HCL 25 MG TABLET PO (21:16)
[2023-10-25] MEDS: lamoTRIgine 100 MG TABLET PO (21:16)
[2023-10-25] MEDS: ARIPiprazole 10 MG TABLET PO (21:16)
[2023-10-26 07:50] VITALS: BP 122/66; PULSE 85; RESP 16; TEMP 36.8; O2SAT 95
--- NOTE | 2023-10-26 08:35 | HO.PSYCHPN ---
Subjective Subjective Date of Service: 10/26/23 Reason For Visit: paranoia cognitive impairment Subjective Notes: Conditional Voluntary (hcp) Healthcare Proxy: Yes Medical Problems Affecting Mental Status: No Interim History: 58 yo WM with chronic schiz and hx toxic encephalopathy doing ok - eating ans leeping ok , taking medications denies se - Medication Compliance: Yes Side effects from medications: No Attending Groups: Intermittent Review of Systems Acute medical concerns: No Medical Review of Systems: unchanged Mental Status Exam Mental Status Exam Patient Appearance: Appropriate and Unkempt Patient Orientation: Person, Place and Situation Level of Consciousness: Awake Patient Behavior: Appropriate and Passive Mood Description: Calm Affect Description: Blunted Patient Cognition Impaired: Yes Ability to Follow Directions: Fair Speech Pattern: Clear Thought Process: Intact and Goal Oriented Thought Content: positive for [place] and positive for Poverty of Content Abnormal Motor Activity Signs and Symptoms: Muscle Rigidity Judgement: Fair Diagnostics Vital Signs (24Hr): Vital Signs - 24 hr 10/25/23 20:00 10/26/23 07:50 Temperature 98.1 F 98.3 F Pulse Rate 87 85 Respiratory Rate 16 16 Blood Pressure 119/68 122/66 Pulse Oximetry 98 95 Oxygen Delivery Method Room Air Room Air BMI result Body Mass Index 31.2 Labs 09/10/23 20:00 10/24/23 08:50 Labs: Laboratory Results - last 48 hr 10/24/23 10/24/23 10/24/23 08:46 08:50 12:27 Creatinine 0.91 Estim Creat Clear Calc 100.5 Estimated GFR > 60 POC Glucose 271 H 105 10/24/23 10/24/23 10/25/23 17:21 20:53 08:37 Creatinine Estim Creat Clear Calc Estimated GFR POC Glucose 245 H 215 H 100 10/25/23 10/25/23 10/25/23 12:49 17:34 20:41 Creatinine Estim Creat Clear Calc Estimated GFR POC Glucose 117 H 180 H 197 H Imaging Radiology Impressions: ITS Impressions Brain MRI 09/19/23 20:33 IMPRESSION: 1. No demonstrated acute intracranial abnormalities. 2. Chronic mild to moderate nonspecific white matter changes, most notably in the deep white matter of the right frontal lobe. Mild to moderate generalized cerebral volume loss. Medications Medications Current Medications Acetaminophen (Acetaminophen 325 Mg Tablet) 650 mg PO Q6H PRN PRN Reason: Headache/Pain Mild Scale (1-3) Last Admin: 10/13/23 09:39 Dose: 650 mg Al Hydroxide/Mg Hydroxide (Magnesium Hydrox/Alum Hydrox 30 Ml Oral.Susp) 30 ml PO Q6H PRN PRN Reason: Heartburn/Nausea Aripiprazole (Aripiprazole 10 Mg Tablet) 10 mg PO BEDTIME [facility] Last Admin: 10/25/23 21:16 Dose: 10 mg Benztropine Mesylate (Benztropine Mesylate 0.5 Mg Tablet) 0.5 mg PO TID PRN PRN Reason: Extrapyramidal Effects Glucose (Glucose Gel 15 Gm Gel..Gram.) 15 gm PO Q15M PRN; Protocol PRN Reason: per Hypoglycemia Standing Ord. Hydroxyzine HCl (Hydroxyzine Hcl 25 Mg Tablet) 25 mg PO Q6H PRN PRN Reason: Anxiety Last Admin: 10/25/23 21:16 Dose: 25 mg Dextrose (D10) 250 mls @ 750 mls/hr IV Q15M PRN; Protocol PRN Reason: per Hypoglycemia Standing Ord. Insulin Glargine (Insulin Glargine,Hum.Rec.Anlog 100 Unit/Ml 10 Ml Vial) 20 unit SUBCUT BEDTIME [facility] Last Admin: 10/25/23 21:15 Dose: 20 unit Insulin Human Lispro (Insulin Lispro 100 Unit/Ml 3 Ml Vial) 0 unit SUBCUT QIDACHS [facility]; Protocol Last Admin: 10/25/23 21:15 Dose: 2 unit Lamotrigine (Lamotrigine 100 Mg Tablet) 100 mg PO BEDTIME [facility] Last Admin: 10/25/23 21:16 Dose: 100 mg Levothyroxine Sodium (Levothyroxine Sodium 200 Mcg Tablet) 200 mcg PO DAILY [facility] Last Admin: 10/25/23 09:29 Dose: 200 mcg Magnesium Hydroxide (Milk Of Magnesia 30 Ml Oral.Susp) 30 ml PO DAILY PRN PRN Reason: Constipation Memantine (Memantine Hcl 5 Mg Tablet) 5 mg PO BID [facility] Last Admin: 10/25/23 21:16 Dose: 5 mg Metformin HCl (Metformin Hcl Er 500 Mg Tab.Er.24h) 1,000 mg PO DAILY@1700 [facility] Last Admin: 10/25/23 17:55 Dose: 1,000 mg Nicotine Polacrilex (Nicotine Polacrilex 2 Mg Gum) 4 mg BUCCAL Q2H PRN PRN Reason: Nicotine Cravings Sertraline HCl (Sertraline Hcl 100 Mg Tablet) 100 mg PO DAILY [facility] Last Admin: 10/25/23 09:29 Dose: 100 mg Simethicone (Simethicone 80 Mg Tab.Chew) 80 mg PO QIDWMHS [facility] Last Admin: 10/25/23 21:16 Dose: 80 mg Trazodone HCl (Trazodone Hcl 50 Mg Tablet) 50 mg PO BEDTIME MRX1 PRN PRN Reason: Insomnia Last Admin: 10/19/23 21:55 Dose: 50 mg Allergies Allergies Allergy/AdvReac Type Severity Reaction Status Date / Time amoxicillin [AMOXICILLIN] Allergy Mild VOMITING/ABD Verified 09/10/23 19:44 PAIN Assessment & Plan Assessment & Plan (1) Schizoaffective disorder: Status: Acute Code(s): F25.9 - Schizoaffective disorder, unspecified (2) Hypothyroidism: Status: Acute Code(s): E03.9 - Hypothyroidism, unspecified (3) Type 2 diabetes mellitus: Status: Acute Code(s): E11.9 - Type 2 diabetes mellitus without complications Plan Patient is a 58 year old male with hx of Schizoaffective d/o and hypothyroid disorder/thyroid coma, stroke and brain aneurysm, who was brought to [facility] on a [address] d/t disorganized behavior, concern for his memory impairment, medications noncompliance and poor ADLs. Plan: CV 15 minute safety checks Continue home medications: Haldol 10mg PO daily Synthroid 200mcg PO daily Obtain labs; A1C/POCs Obtain collateral from sister Obtain records from last hospitalization. MOCA Referral for [facility] services if patient is agreeable. encourage medication compliance;consider VARGAS discharge planning 09/11: Elevated fasting blood sugar elevated hemoglobin A1c 9.2 med consult placed put in point of care needed will start metformin Would benefit from clarity over recent hospitalization what this were done details regarding treatment continue Haldol unclear if patient has Healthcare proxy his [place] was low slowed cognition with poor details in depth at times during blankly regarding making judgments Unclear if any of this relates to past coma or 2 hypothyroidism. He does seem more impaired than when last seen unclear when last imaging was. Continue Haldol sitter neuro indira involvement regarding diagnostic picture. Patient does remain paranoid blunted suspicious apathetic. He might benefit from longer-term placement if available and appropriate at a later time involved [facility] involvement would be quite helpful 09/12: cont haldol get records ? hcp ? start antidep unclear hx 09/13: Keeping to self. More talkative today. Pt concerned he will be transferred to [facility]. Pt stated, The paper I signed yesterday. Are you going to send me back to the last hospital? That place was horrible . Pt was educated he signed a release of information with Dr. Gonzalez to obtain records from [facility]. Pt was given a copy of the release he signed. Despite this, pt continues to be anxious about being transferred. Pt denies SI/HI/VH/AH. 09/14: Keeping to self. active on unit. showered. Pt reports feeling alright today; pt reports he is worried about where I'm going to go . Pt continues concerned he will be transferred to [facility]. Pt denies SI/HI/VH/AH. 09/15:Pt reports feeling alright today; pt continues to report he is worried about where I'm going to go . Responding with brief responses. Guarded. Observed standing in one place for a long period of time. Appears confused. Pt denies SI/HI/VH/AH. T/W spoke to patient's sister, Ros, with patients verbal consent. Ros reports concerns regarding patients ability to make decisions regarding his mental and physical health. She plans on contacting legal advice on obtaining guardianship of patient. 09/16:Patient's presents similar to yesterday's presentation. Responding with brief responses. Guarded. Observed standing in one place for a long period of time, when asked what he is doing, pt stated, I don't know . Pt reports he plans on contacting his sister today and try to convince her for me to stay there . Pt denies SI/HI/VH/AH. Continue current tx plan. 09/17: brief responses. Guarded. Continues to social work program coordinator one place for a long period of time, when asked what he is doing, pt stated, I don't know . Pt denies SI/HI/VH/AH. T/W and Dr. Gonzalez spoke to patient's sister, Ros. Ros stated being [facility] HCP and plans on finding document. She plans on coming to the hospital on Saturday to be present for [facility] intake. 09/22/2023: No changes 09/23/2023 Patient flat apathetic difficult insight and judgment his sister is healthcare proxy if needed patient is accepting medical treatment Referral to [facility] 09/24/23 Considers starting Haldol Decanoate patient is agreeable superficially difficulty with exec fx was seen [facility] 09/25/23 Pt seen in f/u mood flat dysphoric difficulty engaging in conversation preoccupied with thought he wont be living with family thing slowed apathetic no clear response with namenda ? some improvement inc lamictal start low dose sertraline inc lamictal ck tsh 09/26/2023 Start Abilify as augmentation with Haldol see if can be more stimulating regarding depressed mood apathetic limited engagement sertraline 50 mg Lamictal 25 b.i.d. referral to [facility] which would have structure unclear if patient can engage with this he remains quite depressed has delusional beliefs regarding housing and that things have been done he has repeatedly tried to reach out to his sister denies active SI needs much help dressing talking with others encouragement to eat severe thought blocking Abilify might be more stimulating than Haldol which can be more dulling 09/27/23 Abilify started sertraline Lamictal encouraged step-down to [facility] encourage reality orientation denies active SI 09/27: Continue current regimen and plans 09/28: Continue current regimen and plans. 09/30/2023 Referral to [facility] increase Abilify to 5 mg daily eventually try and taper Haldol sertraline 50 mg daily 10/01/2023 Increase Abilify to 10 mg lower Haldol to 7 mg continue sertraline and Lamictal 10/02/2023 Abilify increased to 10 mg continue to taper Haldol sertraline 100 mg Lamictal increased to 75 mg patient apathetic withdrawn difficulty with placement some paranoia continues difficulty with decision making at times. Not physically aggressive internally preoccupied seems somewhat improved with Abilify sertraline Continue discharge planning 10/03/2023 Patient somewhat blunted flat slowed thinking during the day times staring. Change Abilify to 10 mg at bedtime. Scheduled Haldol will lowered to 2.5 mg Continue sertraline 100 mg Namenda 5 b.i.d. 10/04/2023 . Haldol discontinued modafinil low-dose monitor for psychosis or agitation continue discharge planning 10/07/2023 May need to firm healthcare proxy calls have been placed to sister to try to help in discharge planning. Referrals made. Patient cooperative with care 10/08/2023 Pharmacy ordering Abilify maintain a increase modafinil 100 mg patient remains flat passive depressed some improvement noted no current paranoia noted continue discharge planning no current safe discharge plan 10/09/2023 Increase Lamictal 100 mg Abilify Maintena 400 mg hold modafinil unclear if was overly stimulating patient continues to present internally preoccupied. 10/10/23 Healthcare proxy invoked discharge planning continue Lamictal Abilify pending maintain a 10/11/2023 Healthcare proxy invoked new CV signed discharge planning. 10/11 keep same treatment 10/12 keep same treatment 10/14/2023 Continue plan of care Lamictal Abilify discharge planning sertraline 10/14: stable. continue current mgmt. 10/15: stable. continue current mgmt. 10/16: stable presentation. continue current mgmt. 10/17: as for yesterday. 10/18: no changes. 10/19: stabel, safe. no change. 10/20: no change in presentation. calm, cooperative. active on unit, social with select peers, attending groups. Pt reports feeling alright . denies SI/HI/VH/AH. Social work waiting to hear from possible placement location. Continue current tx plan. 10/21: continue current tx plan. awaiting placement. 10/22: calm, cooperative. active on unit, social with select peers, attending groups. Pt reports feeling good ; pt stated, I'm waiting to see where I'm going . denies SI/HI/VH/AH. Showered with encouragement. 10/23: continue current tx plan. 10/24: calm, cooperative. active on unit, social with select peers, attending groups. Pt reports feeling good ; pt stated, I just want a place to live . 10/25- likely at baseline for him- CTP Reason for continued inpatient stay Substantial Risk for: inability to function and rapid decompensation Time Spent With Patient Time: Total time managing care of this patient today ____ minutes.
[2023-10-26] MEDS: Memantine HCl 5 MG TABLET PO ×2 (08:58→21:15)
[2023-10-26] MEDS: Sertraline HCL 100 MG TABLET PO (08:58)
[2023-10-26] MEDS: Simethicone 80 MG TAB.CHEW PO ×3 (08:58→21:15)
[2023-10-26] MEDS: Levothyroxine Sodium 200 MCG TABLET PO (08:58)
[2023-10-26 09:17] LABS: Glucose, Whole Blood 109 mg/dL (60-115)
[2023-10-26 13:07] LABS: Glucose, Whole Blood 197 mg/dL (60-115)
[2023-10-26] MEDS: Insulin Lispro 100 UNIT/ML 3 ML VIAL SUBCUT ×3 (14:21→21:14)
[2023-10-26] MEDS: metFORMIN HCl ER 500 MG TAB.ER.24H 1000 MG PO (17:09)
[2023-10-26 17:55] LABS: Glucose, Whole Blood 214 mg/dL (60-115)
[2023-10-26 20:00] VITALS: BP 121/69; PULSE 90; RESP 16; TEMP 36.8; O2SAT 96
[2023-10-26 20:21] LABS: Glucose, Whole Blood 151 mg/dL (60-115)
[2023-10-26] MEDS: Insulin Glargine,Hum.rec.anlog 100 UNIT/ML 10 ML VIAL 20 UNIT SUBCUT (21:14)
[2023-10-26] MEDS: hydrOXYzine HCL 25 MG TABLET PO (21:15)
[2023-10-26] MEDS: lamoTRIgine 100 MG TABLET PO (21:15)
[2023-10-26] MEDS: ARIPiprazole 10 MG TABLET PO (21:15)
[2023-10-27 07:45] VITALS: BP 128/86; PULSE 113; RESP 16; TEMP 36.9; O2SAT 96
[2023-10-27 08:45] LABS: Glucose, Whole Blood 111 mg/dL (60-115)
[2023-10-27] MEDS: Levothyroxine Sodium 200 MCG TABLET PO (08:51)
[2023-10-27] MEDS: Sertraline HCL 100 MG TABLET PO (08:51)
[2023-10-27] MEDS: Memantine HCl 5 MG TABLET PO ×2 (08:51→20:39)
[2023-10-27] MEDS: Simethicone 80 MG TAB.CHEW PO ×4 (08:53→20:38)
[2023-10-27 12:57] LABS: Glucose, Whole Blood 111 mg/dL (60-115)
[2023-10-27] MEDS: metFORMIN HCl ER 500 MG TAB.ER.24H 1000 MG PO (17:48)
[2023-10-27 17:49] LABS: Glucose, Whole Blood 192 mg/dL (60-115)
[2023-10-27] MEDS: Insulin Lispro 100 UNIT/ML 3 ML VIAL SUBCUT (17:50)
[2023-10-27 19:20] VITALS: BP 130/75; PULSE 89; RESP 18; TEMP 36.9; O2SAT 97
--- NOTE | 2023-10-27 20:04 | P.PNPSI_ITS ---
Subjective Subjective Date of Service: 10/27/23 Reason For Visit: paranoia cognitive impairment Subjective Notes: Conditional Voluntary Healthcare Proxy: Yes Medical Problems Affecting Mental Status: Yes (hx memory impairment- cog changes - ) Interim History: 58 yo with schizoaffective do likely at baseline- more kempt today took shower, reports doing ok - reviewed blood sugars- he thought he had same blood sugars x2 today 117' Medication Compliance: Yes Side effects from medications: No Attending Groups: Intermittent Review of Systems Acute medical concerns: No Medical Review of Systems: unchanged Mental Status Exam Mental Status Exam Patient Appearance: Appropriate Patient Orientation: Person, Place and Situation Level of Consciousness: Awake Patient Behavior: Appropriate and Passive Mood Description: Calm Affect Description: Blunted Patient Cognition Impaired: Yes Ability to Follow Directions: Fair Speech Pattern: Clear Thought Process: Intact and Goal Oriented Thought Content: positive for [place] and positive for Poverty of Content Abnormal Motor Activity Signs and Symptoms: Muscle Rigidity Judgement: Fair Diagnostics Vital Signs (24Hr): Vital Signs - 24 hr 10/27/23 07:45 Temperature 98.5 F Pulse Rate 113 H Respiratory Rate 16 Blood Pressure 128/86 Pulse Oximetry 96 Oxygen Delivery Method Room Air BMI result Body Mass Index 31.2 Labs 09/10/23 20:00 10/24/23 08:50 Labs: Laboratory Results - last 48 hr 10/25/23 10/26/23 10/26/23 20:41 09:13 12:54 POC Glucose 197 H 109 197 H 10/26/23 10/26/23 10/27/23 17:50 20:12 08:29 POC Glucose 214 H 151 H 111 10/27/23 10/27/23 12:51 17:40 POC Glucose 111 192 H Imaging Radiology Impressions: ITS Impressions Brain MRI 09/19/23 20:33 IMPRESSION: 1. No demonstrated acute intracranial abnormalities. 2. Chronic mild to moderate nonspecific white matter changes, most notably in the deep white matter of the right frontal lobe. Mild to moderate generalized cerebral volume loss. Medications Medications Current Medications Acetaminophen (Acetaminophen 325 Mg Tablet) 650 mg PO Q6H PRN PRN Reason: Headache/Pain Mild Scale (1-3) Last Admin: 10/13/23 09:39 Dose: 650 mg Al Hydroxide/Mg Hydroxide (Magnesium Hydrox/Alum Hydrox 30 Ml Oral.Susp) 30 ml PO Q6H PRN PRN Reason: Heartburn/Nausea Aripiprazole (Aripiprazole 10 Mg Tablet) 10 mg PO BEDTIME [facility] Last Admin: 10/26/23 21:15 Dose: 10 mg Benztropine Mesylate (Benztropine Mesylate 0.5 Mg Tablet) 0.5 mg PO TID PRN PRN Reason: Extrapyramidal Effects Glucose (Glucose Gel 15 Gm Gel..Gram.) 15 gm PO Q15M PRN; Protocol PRN Reason: per Hypoglycemia Standing Ord. Hydroxyzine HCl (Hydroxyzine Hcl 25 Mg Tablet) 25 mg PO Q6H PRN PRN Reason: Anxiety Last Admin: 10/26/23 21:15 Dose: 25 mg Dextrose (D10) 250 mls @ 750 mls/hr IV Q15M PRN; Protocol PRN Reason: per Hypoglycemia Standing Ord. Insulin Glargine (Insulin Glargine,Hum.Rec.Anlog 100 Unit/Ml 10 Ml Vial) 20 unit SUBCUT BEDTIME [facility] Last Admin: 10/26/23 21:14 Dose: 20 unit Insulin Human Lispro (Insulin Lispro 100 Unit/Ml 3 Ml Vial) 0 unit SUBCUT QIDACHS [facility]; Protocol Last Admin: 10/27/23 17:50 Dose: 2 unit Lamotrigine (Lamotrigine 100 Mg Tablet) 100 mg PO BEDTIME [facility] Last Admin: 10/26/23 21:15 Dose: 100 mg Levothyroxine Sodium (Levothyroxine Sodium 200 Mcg Tablet) 200 mcg PO DAILY [facility] Last Admin: 10/27/23 08:51 Dose: 200 mcg Magnesium Hydroxide (Milk Of Magnesia 30 Ml Oral.Susp) 30 ml PO DAILY PRN PRN Reason: Constipation Memantine (Memantine Hcl 5 Mg Tablet) 5 mg PO BID [facility] Last Admin: 10/27/23 08:51 Dose: 5 mg Metformin HCl (Metformin Hcl Er 500 Mg Tab.Er.24h) 1,000 mg PO DAILY@1700 [facility] Last Admin: 10/27/23 17:48 Dose: 1,000 mg Nicotine Polacrilex (Nicotine Polacrilex 2 Mg Gum) 4 mg BUCCAL Q2H PRN PRN Reason: Nicotine Cravings Sertraline HCl (Sertraline Hcl 100 Mg Tablet) 100 mg PO DAILY [facility] Last Admin: 10/27/23 08:51 Dose: 100 mg Simethicone (Simethicone 80 Mg Tab.Chew) 80 mg [facility] Last Admin: 10/27/23 17:55 Dose: 80 mg Trazodone HCl (Trazodone Hcl 50 Mg Tablet) 50 mg PO BEDTIME [facility]X1 PRN PRN Reason: Insomnia Last Admin: 10/19/23 21:55 Dose: 50 mg Allergies Allergies Allergy/AdvReac Type Severity Reaction Status Date / Time amoxicillin [AMOXICILLIN] Allergy Mild VOMITING/ABD Verified 09/10/23 19:44 PAIN Assessment & Plan Assessment & Plan (1) Schizoaffective disorder: Status: Acute Code(s): F25.9 - Schizoaffective disorder, unspecified (2) Hypothyroidism: Status: Acute Code(s): E03.9 - Hypothyroidism, unspecified (3) Type 2 diabetes mellitus: Status: Acute Code(s): E11.9 - Type 2 diabetes mellitus without complications Plan Patient is a 58 year old male with hx of Schizoaffective d/o and hypothyroid disorder/thyroid coma, stroke and brain aneurysm, who was [place] [facility] [place] d/t disorganized behavior, concern for his memory impairment, medications noncompliance and poor ADLs. Plan: CV 15 minute safety checks Continue home medications: Haldol 10mg PO daily Synthroid 200mcg PO daily Obtain labs; A1C/POCs Obtain collateral from sister Obtain records from last hospitalization. MOCA Referral for DMH services if patient is agreeable. encourage medication compliance;consider VARGAS discharge planning 09/11: Elevated fasting blood sugar elevated hemoglobin A1c 9.2 med consult placed put in point of care needed will start metformin Would benefit from clarity over recent hospitalization what this were done details regarding treatment continue Haldol unclear if patient has Healthcare proxy his [place] was low slowed cognition with poor details in depth at times during blankly regarding making judgments Unclear if any of this relates to past coma or 2 hypothyroidism. He does seem more impaired than when last seen unclear when last imaging was. Continue Haldol sitter neuro indira involvement regarding diagnostic picture. Patient does remain paranoid blunted suspicious apathetic. He might benefit from longer- term placement if available and appropriate at a later time involved [facility]H involvement would be quite helpful 09/12: cont haldol get records ? hcp ? start antidep unclear hx 09/13: Keeping to self. More talkative today. Pt concerned he will be transferred to [facility]. Pt stated, The paper I signed yesterday. Are you going to send me back to the last hospital? That place was horrible . Pt was educated he signed a release of information with Dr. Gonzalez to obtain records from [facility]. Pt was given a copy of the release he signed. Despite this, pt continues to be anxious about being transferred. Pt denies SI/HI/VH/AH. 09/14: Keeping to self. active on unit. showered. Pt reports feeling alright today; pt reports he is worried about where I'm going to go . Pt continues concerned he will be transferred to [facility]. Pt denies SI/HI/VH/AH. 09/15:Pt reports feeling alright today; pt continues to report he is worried about where I'm going to go . Responding with brief responses. Guarded. Observed standing in one place for a long period of time. Appears confused. Pt denies SI/HI/VH/AH. T/W spoke to patient's sister, Ros, with patients verbal consent. Ros reports concerns regarding patients ability to make decisions regarding his mental and physical health. She plans on contacting legal advice on obtaining guardianship of patient. 09/16:Patient's presents similar to yesterday's presentation. Responding with brief responses. Guarded. Observed standing in one place for a long period of time, when asked what he is doing, pt stated, I don't know . Pt reports he plans on contacting his sister today and try to convince her for me to stay there . Pt denies SI/HI/VH/AH. Continue current tx plan. 09/17: brief responses. Guarded. 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 Pt denies SI/HI/VH/AH. T/W and Dr. Gonzalez spoke to patient's sister, Ros. Ros stated being [facility] HCP and plans on finding document. She plans on coming to the hospital on Saturday to be present for [facility] intake. 09/22/2023: No changes 09/23/2023 Patient flat apathetic difficult insight and judgment his sister is healthcare proxy if needed patient is accepting medical treatment Referral to [facility] 09/24/23 Considers starting Haldol Dec[place] patient is agreeable superficially difficulty with exec fx was seen [facility] 09/25/23 Pt seen in f/u mood flat dysphoric difficulty engaging in conversation preoccupied with thought he wont be living with family thing slowed apathetic no clear response with namenda ? some improvement inc lamictal start low dose sertraline inc lamictal ck tsh 09/26/2023 Start Abilify as augmentation with Haldol see if can be more stimulating regarding depressed mood apathetic limited engagement sertraline 50 mg Lamictal 25 b.i.d. referral to [facility] which would have structure unclear if patient can engage with this he remains quite depressed has delusional beliefs regarding housing and that things have been done he has repeatedly tried to reach out to his sister denies active SI needs much help dressing talking with others encouragement to eat severe thought blocking Abilify might be more stimulating than Haldol which can be more dulling 09/27/23 Abilify started sertraline Lamictal encouraged step-down to [facility] encourage reality orientation denies active SI 09/27: Continue current regimen and plans 09/28: Continue current regimen and plans. 09/30/2023 Referral to [facility] increase Abilify to 5 mg daily eventually try and taper Haldol sertraline 50 mg daily 10/01/2023 Increase Abilify to 10 mg lower Haldol to 7 mg continue sertraline and Lamictal 10/02/2023 Abilify increased to 10 mg continue to taper Haldol sertraline 100 mg Lamictal increased to 75 mg patient apathetic withdrawn difficulty with placement some paranoia continues difficulty with decision making at times. Not physically aggressive internally preoccupied seems somewhat improved with Abilify sertraline Continue discharge planning 10/03/2023 Patient somewhat blunted flat slowed thinking during the day times staring. Change Abilify to 10 mg at bedtime. Scheduled Haldol will lowered to 2.5 mg Continue sertraline 100 mg Namenda 5 b.i.d. 10/04/2023 . Haldol discontinued modafinil low-dose monitor for psychosis or agitation continue discharge planning 10/07/2023 May need to firm healthcare proxy calls have been placed to sister to try to help in discharge planning. Referrals made. Patient cooperative with care 10/08/2023 Pharmacy ordering Abilify maintain a increase modafinil 100 mg patient remains flat passive depressed some improvement noted no current paranoia noted continue discharge planning no current safe discharge plan 10/09/2023 Increase Lamictal 100 mg Abilify Maintena 400 mg hold modafinil unclear if was overly stimulating patient continues to present internally preoccupied. 10/10/23 Healthcare proxy invoked discharge planning continue Lamictal Abilify pending maintain a 10/11/2023 Healthcare proxy invoked new CV signed discharge planning. 10/11 keep same treatment 10/12 keep same treatment 10/14/2023 Continue plan of care Lamictal Abilify discharge planning sertraline 10/14: stable. continue current mgmt. 10/15: stable. continue current mgmt. 10/16: stable presentation. continue current mgmt. 10/17: as for yesterday. 10/18: no changes. 10/19: stabel, safe. no change. 10/20: no change in presentation. calm, cooperative. active on unit, social with select peers, attending groups. Pt reports feeling alright . denies SI/HI/VH/AH. Social work waiting to hear from possible placement location. Continue current tx plan. 10/21: continue current tx plan. awaiting placement. 10/22: calm, cooperative. active on unit, social with select peers, attending groups. Pt reports feeling good ; pt stated, I'm waiting to see where I'm going . denies SI/HI/VH/AH. Showered with encouragement. 10/23: continue current tx plan. 10/24: calm, cooperative. active on unit, social with select peers, attending groups. Pt reports feeling good ; pt stated, I just want a place to live . 10/25- likely at baseline for him- CTP 10/26 CTP likely needs placement Patient educated on: medical condition Informed Consent: understands Reason for continued inpatient stay Substantial Risk for: inability to function and rapid decompensation Time Spent With Patient Time: Total time managing care of this patient today ____ minutes.
[2023-10-27] MEDS: ARIPiprazole 10 MG TABLET PO (20:38)
[2023-10-27] MEDS: traZODone HCL 50 MG TABLET PO (20:38)
[2023-10-27] MEDS: hydrOXYzine HCL 25 MG TABLET PO (20:38)
[2023-10-27] MEDS: lamoTRIgine 100 MG TABLET PO (20:38)
[2023-10-27] MEDS: Insulin Glargine,Hum.rec.anlog 100 UNIT/ML 10 ML VIAL 20 UNIT SUBCUT (21:10)
[2023-10-27 22:17] LABS: Glucose, Whole Blood 148 mg/dL (60-115)
[2023-10-28 07:49] VITALS: BP 113/56; PULSE 83; RESP 18; TEMP 36.6; O2SAT 96
[2023-10-28 08:30] LABS: Glucose, Whole Blood 121 mg/dL (60-115)
[2023-10-28] MEDS: Simethicone 80 MG TAB.CHEW PO ×4 (08:47→21:54)
[2023-10-28] MEDS: Levothyroxine Sodium 200 MCG TABLET PO (08:47)
[2023-10-28] MEDS: Sertraline HCL 100 MG TABLET PO (08:48)
[2023-10-28] MEDS: Memantine HCl 5 MG TABLET PO ×2 (08:48→21:54)
--- NOTE | 2023-10-28 09:57 | HO.PSYCHPN ---
Subjective Subjective Date of Service: 10/28/23 Reason For Visit: paranoia cognitive impairment Subjective Notes: Conditional Voluntary Interim History: Reviewed with Dr. Gonzalez. calm, cooperative. active on unit, social with select peers, attending groups. Pt reports feeling okay ; he reports sleeping well. denies any issues at this time. Medication Compliance: Yes Side effects from medications: No Attending Groups: Yes Review of Systems Constitutional: Reports as per HPI Eyes: Reports as per HPI Reports as per HPI Cardiovascular: Reports as per HPI Respiratory: Reports as per HPI Gastrointestinal: Reports as per HPI Genitourinary: Reports as per HPI Musculoskeletal: Reports as per HPI Skin/Breast: Reports as per HPI Reports as per HPI Psychiatric: Reports as per HPI Endocrine: Reports as per HPI Hematologic/Lymphatic: Reports as per HPI Allergic/Immunologic: Reports as per HPI Mental Status Exam Mental Status Exam Patient Appearance: Appropriate Patient Orientation: Person, Place and Situation Level of Consciousness: Awake and Appropriate Patient Behavior: Guarded and Passive Mood Description: Calm and Withdrawn Affect Description: Calm Patient Cognition Impaired: Yes Ability to Follow Directions: Good Speech Pattern: Clear 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: Spot Washer Impaired Diagnostics Vital Signs (24Hr): Vital Signs - 24 hr 10/27/23 19:20 10/28/23 07:49 Temperature 98.4 F 97.8 F Pulse Rate 89 83 Respiratory Rate 18 18 Blood Pressure 130/75 113/56 L Pulse Oximetry 97 96 Oxygen Delivery Method Room Air Room Air BMI result Body Mass Index 31.2 Labs 09/10/23 20:00 10/24/23 08:50 Labs: Laboratory Results - last 48 hr 10/26/23 10/26/23 10/26/23 12:54 17:50 20:12 POC Glucose 197 H 214 H 151 H 10/27/23 10/27/23 10/27/23 08:29 12:51 17:40 POC Glucose 111 111 192 H 10/27/23 10/28/23 21:06 08:23 POC Glucose 148 H 121 H Imaging Radiology Impressions: ITS Impressions Brain MRI 09/19/23 20:33 IMPRESSION: 1. No demonstrated acute intracranial abnormalities. 2. Chronic mild to moderate nonspecific white matter changes, most notably in the deep white matter of the right frontal lobe. Mild to moderate generalized cerebral volume loss. Medications Medications Current Medications Acetaminophen (Acetaminophen 325 Mg Tablet) 650 mg PO Q6H PRN PRN Reason: Headache/Pain Mild Scale (1-3) Last Admin: 10/13/23 09:39 Dose: 650 mg Al Hydroxide/Mg Hydroxide (Magnesium Hydrox/Alum Hydrox 30 Ml Oral.Susp) 30 ml PO Q6H PRN PRN Reason: Heartburn/Nausea Aripiprazole (Aripiprazole 10 Mg Tablet) 10 mg PO BEDTIME ON LICENSE OF [facility] Last Admin: 10/27/23 20:38 Dose: 10 mg Benztropine Mesylate (Benztropine Mesylate 0.5 Mg Tablet) 0.5 mg PO TID PRN PRN Reason: Extrapyramidal Effects Glucose (Glucose Gel 15 Gm Gel..Gram.) 15 gm PO Q15M PRN; Protocol PRN Reason: per Hypoglycemia Standing Ord. Hydroxyzine HCl (Hydroxyzine Hcl 25 Mg Tablet) 25 mg PO Q6H PRN PRN Reason: Anxiety Last Admin: 10/27/23 20:38 Dose: 25 mg Dextrose (D10) 250 mls @ 750 mls/hr IV Q15M PRN; Protocol PRN Reason: per Hypoglycemia Standing Ord. Insulin Glargine (Insulin Glargine,Hum.Rec.Anlog 100 Unit/Ml 10 Ml Vial) 20 unit SUBCUT BEDTIME ON LICENSE OF [facility] Last Admin: 10/27/23 21:10 Dose: 20 unit Insulin Human Lispro (Insulin Lispro 100 Unit/Ml 3 Ml Vial) 0 unit SUBCUT QIDACHS ON LICENSE OF [facility]; Protocol Last Admin: 10/28/23 09:19 Dose: Not Given Lamotrigine (Lamotrigine 100 Mg Tablet) 100 mg PO BEDTIME ON LICENSE OF [facility] Last Admin: 10/27/23 20:38 Dose: 100 mg Levothyroxine Sodium (Levothyroxine Sodium 200 Mcg Tablet) 200 mcg PO DAILY ON LICENSE OF [facility] Last Admin: 10/28/23 08:47 Dose: 200 mcg Magnesium Hydroxide (Milk Of Magnesia 30 Ml Oral.Susp) 30 ml PO DAILY PRN PRN Reason: Constipation Memantine (Memantine Hcl 5 Mg Tablet) 5 mg PO BID ON LICENSE OF [facility] Last Admin: 10/28/23 08:48 Dose: 5 mg Metformin HCl (Metformin Hcl Er 500 Mg Tab.Er.24h) 1,000 mg PO DAILY@1700 ON LICENSE OF [facility] Last Admin: 10/27/23 17:48 Dose: 1,000 mg Nicotine Polacrilex (Nicotine Polacrilex 2 Mg Gum) 4 mg BUCCAL Q2H PRN PRN Reason: Nicotine Cravings Sertraline HCl (Sertraline Hcl 100 Mg Tablet) 100 mg PO DAILY ON LICENSE OF [facility] Last Admin: 10/28/23 08:48 Dose: 100 mg Simethicone (Simethicone 80 Mg Tab.Chew) 80 mg PO QIDWMHS ON LICENSE OF [facility] Last Admin: 10/28/23 08:47 Dose: 80 mg Trazodone HCl (Trazodone Hcl 50 Mg Tablet) 50 mg PO BEDTIME MRX1 PRN PRN Reason: Insomnia Last Admin: 10/27/23 20:38 Dose: 50 mg Allergies Allergies Allergy/AdvReac Type Severity Reaction Status Date / Time amoxicillin [AMOXICILLIN] Allergy Mild VOMITING/ABD Verified 09/10/23 19:44 PAIN Assessment & Plan Assessment & Plan (1) Schizoaffective disorder: Status: Acute Code(s): F25.9 - Schizoaffective disorder, unspecified (2) Hypothyroidism: Status: Acute Code(s): E03.9 - Hypothyroidism, unspecified (3) Type 2 diabetes mellitus: Status: Acute Code(s): E11.9 - Type 2 diabetes mellitus without complications Plan Patient is a 58 year old male with hx of Schizoaffective d/o and hypothyroid disorder/thyroid coma, stroke and brain aneurysm, who was brought to [facility] on a Section 12 d/t disorganized behavior, concern for his memory impairment, medications noncompliance and poor ADLs. Plan: CV 15 minute safety checks Continue home medications: Haldol 10mg PO daily Synthroid 200mcg PO daily Obtain labs; A1C/POCs Obtain collateral from sister Obtain records from last hospitalization. MOCA Referral for DMH services if patient is agreeable. encourage medication compliance;consider VARGAS discharge planning 09/11: Elevated fasting blood sugar elevated hemoglobin A1c 9.2 med consult placed put in point of care needed will start metformin Would benefit from clarity over recent hospitalization what this were done details regarding treatment continue Haldol unclear if patient has Healthcare proxy his [place] was low slowed cognition with poor details in depth at times during blankly regarding making judgments Unclear if any of this relates to past coma or 2 hypothyroidism. He does seem more impaired than when last seen unclear when last imaging was. Continue Haldol sitter neuro indira involvement regarding diagnostic picture. Patient does remain paranoid blunted suspicious apathetic. He might benefit from longer-term placement if available and appropriate at a later time involved DMH involvement would be quite helpful 09/12: cont haldol get records ? hcp ? start antidep unclear hx 09/13: Keeping to self. More talkative today. Pt concerned he will be transferred to [facility]. Pt stated, The paper I signed yesterday. Are you going to send me back to the last hospital? That place was horrible . Pt was educated he signed a release of information with Dr. Gonzalez to obtain records from [facility]. Pt was given a copy of the release he signed. Despite this, pt continues to be anxious about being transferred. Pt denies SI/HI/VH/AH. 09/14: Keeping to self. active on unit. showered. Pt reports feeling alright today; pt reports he is worried about where I'm going to go . Pt continues concerned he will be transferred to [facility]. Pt denies SI/HI/VH/AH. 09/15:Pt reports feeling alright today; pt continues to report he is worried about where I'm going to go . Responding with brief responses. Guarded. Observed standing in one place for a long period of time. Appears confused. Pt denies SI/HI/VH/AH. T/W spoke to patient's sister, Ros, with patients verbal consent. Ros reports concerns regarding patients ability to make decisions regarding his mental and physical health. She plans on contacting legal advice on obtaining guardianship of patient. 09/16:Patient's presents similar to yesterday's presentation. Responding with brief responses. Guarded. Observed standing in one place for a long period of time, when asked what he is doing, pt stated, I don't know . Pt reports he plans on contacting his sister today and try to convince her for me to stay there . Pt denies SI/HI/VH/AH. Continue current tx plan. 09/17: brief responses. Guarded. 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 Pt denies SI/HI/VH/AH. T/W and Dr. Gonzalez spoke to patient's sister, Ros. Ros stated being [facility] HCP and plans on finding document. She plans on coming to the hospital on Saturday to be present for [facility] intake. 09/22/2023: No changes 09/23/2023 Patient flat apathetic difficult insight and judgment his sister is healthcare proxy if needed patient is accepting medical treatment Referral to [facility] 09/24/23 Considers starting Haldol Decanoate patient is agreeable superficially difficulty with exec fx was seen [facility] 09/25/23 Pt seen in f/u mood flat dysphoric difficulty engaging in conversation preoccupied with thought he wont be living with family thing slowed apathetic no clear response with namenda ? some improvement inc lamictal start low dose sertraline inc lamictal ck tsh 09/26/2023 Start Abilify as augmentation with Haldol see if can be more stimulating regarding depressed mood apathetic limited engagement sertraline 50 mg Lamictal 25 b.i.d. referral to [facility] which would have structure unclear if patient can engage with this he remains quite depressed has delusional beliefs regarding housing and that things have been done he has repeatedly tried to reach out to his sister denies active SI needs much help dressing talking with others encouragement to eat severe thought blocking Abilify might be more stimulating than Haldol which can be more dulling 09/27/23 Abilinathaniel started sertraline Lamictal encouraged step-down to [facility] encourage reality orientation denies active SI 09/27: Continue current regimen and plans 09/28: Continue current regimen and plans. 09/30/2023 Referral to [facility] increase Abilify to 5 mg daily eventually try and taper Haldol sertraline 50 mg daily 10/01/2023 Increase Abilify to 10 mg lower Haldol to 7 mg continue sertraline and Lamictal 10/02/2023 Abilify increased to 10 mg continue to taper Haldol sertraline 100 mg Lamictal increased to 75 mg patient apathetic withdrawn difficulty with placement some paranoia continues difficulty with decision making at times. Not physically aggressive internally preoccupied seems somewhat improved with Abilify sertraline Continue discharge planning 10/03/2023 Patient somewhat blunted flat slowed thinking during the day times staring. Change Abilify to 10 mg at bedtime. Scheduled Haldol will lowered to 2.5 mg Continue sertraline 100 mg Namenda 5 b.i.d. 10/04/2023 . Haldol discontinued modafinil low-dose monitor for psychosis or agitation continue discharge planning 10/07/2023 May need to firm healthcare proxy calls have been placed to sister to try to help in discharge planning. Referrals made. Patient cooperative with care 10/08/2023 Pharmacy ordering Abilify maintain a increase modafinil 100 mg patient remains flat passive depressed some improvement noted no current paranoia noted continue discharge planning no current safe discharge plan 10/09/2023 Increase Lamictal 100 mg Abilify Maintena 400 mg hold modafinil unclear if was overly stimulating patient continues to present internally preoccupied. 10/10/23 Healthcare proxy invoked discharge planning continue Lamictal Abilify pending maintain a 10/11/2023 Healthcare proxy invoked new CV signed discharge planning. 10/11 keep same treatment 10/12 keep same treatment 10/14/2023 Continue plan of care Lamictal Abilify discharge planning sertraline 10/14: stable. continue current mgmt. 10/15: stable. continue current mgmt. 10/16: stable presentation. continue current mgmt. 10/17: as for yesterday. 10/18: no changes. 10/19: stabel, safe. no change. 10/20: no change in presentation. calm, cooperative. active on unit, social with select peers, attending groups. Pt reports feeling alright . denies SI/HI/VH/AH. Social work waiting to hear from possible placement location. Continue current tx plan. 10/21: continue current tx plan. awaiting placement. 10/22: calm, cooperative. active on unit, social with select peers, attending groups. Pt reports feeling good ; pt stated, I'm waiting to see where I'm going . denies SI/HI/VH/AH. Showered with encouragement. 10/23: continue current tx plan. 10/24: calm, cooperative. active on unit, social with select peers, attending groups. Pt reports feeling good ; pt stated, I just want a place to live . 10/27: continue current tx plan. awaiting placement. Patient educated on: diagnosis and medication risk/benefits Reason for continued inpatient stay Substantial Risk for: other (awaiting placement) Time Spent With Patient Time: Total time managing care of this patient today _20___ minutes.
[2023-10-28 12:41] LABS: Glucose, Whole Blood 162 mg/dL (60-115)
[2023-10-28] MEDS: Insulin Lispro 100 UNIT/ML 3 ML VIAL SUBCUT ×3 (12:50→21:55)
[2023-10-28] MEDS: metFORMIN HCl ER 500 MG TAB.ER.24H 1000 MG PO (18:07)
[2023-10-28 18:15] LABS: Glucose, Whole Blood 178 mg/dL (60-115)
[2023-10-28 20:00] VITALS: BP 141/66; PULSE 84; RESP 16; TEMP 36.9; O2SAT 97
[2023-10-28 21:48] LABS: Glucose, Whole Blood 151 mg/dL (60-115)
[2023-10-28] MEDS: lamoTRIgine 100 MG TABLET PO (21:54)
[2023-10-28] MEDS: ARIPiprazole 10 MG TABLET PO (21:55)
[2023-10-28] MEDS: Insulin Glargine,Hum.rec.anlog 100 UNIT/ML 10 ML VIAL 20 UNIT SUBCUT (21:55)
[2023-10-29 07:37] VITALS: BP 121/73; PULSE 82; RESP 18; TEMP 36.9; O2SAT 96
[2023-10-29] MEDS: Memantine HCl 5 MG TABLET PO ×2 (08:36→21:04)
[2023-10-29] MEDS: Levothyroxine Sodium 200 MCG TABLET PO (08:36)
[2023-10-29] MEDS: Sertraline HCL 100 MG TABLET PO (08:36)
[2023-10-29] MEDS: Simethicone 80 MG TAB.CHEW PO ×4 (08:37→21:04)
[2023-10-29 09:05] LABS: Glucose, Whole Blood 119 mg/dL (60-115)
--- NOTE | 2023-10-29 09:09 | HO.PSYCHPN ---
Subjective Subjective Date of Service: 10/29/23 Reason For Visit: paranoia cognitive impairment Subjective Notes: Conditional Voluntary Interim History: Reviewed with Dr. Gonzalez. calm, cooperative. active on unit, social with select peers, attending groups. Pt reports feeling okay ; denies any issues at this time. Awaiting placement. Medication Compliance: Yes Side effects from medications: No Attending Groups: Yes Review of Systems Constitutional: Reports as per HPI Eyes: Reports as per HPI Reports as per HPI Cardiovascular: Reports as per HPI Respiratory: Reports as per HPI Gastrointestinal: Reports as per HPI Genitourinary: Reports as per HPI Musculoskeletal: Reports as per HPI Skin/Breast: Reports as per HPI Reports as per HPI Psychiatric: Reports as per HPI Endocrine: Reports as per HPI Hematologic/Lymphatic: Reports as per HPI Allergic/Immunologic: Reports as per HPI Mental Status Exam Mental Status Exam Patient Appearance: Appropriate Patient Orientation: Person, Place and Situation Level of Consciousness: Awake Patient Behavior: Appropriate, Cooperative and Passive Mood Description: Calm Affect Description: Blunted Patient Cognition Impaired: Yes Ability to Follow Directions: Fair Speech Pattern: Clear 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: Social Media Content Specialist Impaired Diagnostics Vital Signs (24Hr): Vital Signs - 24 hr 10/28/23 20:00 10/29/23 07:37 Temperature 98.5 F 98.4 F Pulse Rate 84 82 Respiratory Rate 16 18 Blood Pressure 141/66 H 121/73 Pulse Oximetry 97 96 Oxygen Delivery Method Room Air Room Air BMI result Body Mass Index 31.2 Labs 09/10/23 20:00 10/24/23 08:50 Labs: Laboratory Results - last 48 hr 10/27/23 10/27/23 10/27/23 12:51 17:40 21:06 POC Glucose 111 192 H 148 H 10/28/23 10/28/23 10/28/23 08:23 12:33 18:07 POC Glucose 121 H 162 H 178 H 10/28/23 10/29/23 21:44 08:43 POC Glucose 151 H 119 H Imaging Radiology Impressions: ITS Impressions Brain MRI 09/19/23 20:33 IMPRESSION: 1. No demonstrated acute intracranial abnormalities. 2. Chronic mild to moderate nonspecific white matter changes, most notably in the deep white matter of the right frontal lobe. Mild to moderate generalized cerebral volume loss. Medications Medications Current Medications Acetaminophen (Acetaminophen 325 Mg Tablet) 650 mg PO Q6H PRN PRN Reason: Headache/Pain Mild Scale (1-3) Last Admin: 10/13/23 09:39 Dose: 650 mg Al Hydroxide/Mg Hydroxide (Magnesium Hydrox/Alum Hydrox 30 Ml Oral.Susp) 30 ml PO Q6H PRN PRN Reason: Heartburn/Nausea Aripiprazole (Aripiprazole 10 Mg Tablet) 10 mg PO BEDTIME [facility] Last Admin: 10/28/23 21:55 Dose: 10 mg Benztropine Mesylate (Benztropine Mesylate 0.5 Mg Tablet) 0.5 mg PO TID PRN PRN Reason: Extrapyramidal Effects Glucose (Glucose Gel 15 Gm Gel..Gram.) 15 gm PO Q15M PRN; Protocol PRN Reason: per Hypoglycemia Standing Ord. Hydroxyzine HCl (Hydroxyzine Hcl 25 Mg Tablet) 25 mg PO Q6H PRN PRN Reason: Anxiety Last Admin: 10/27/23 20:38 Dose: 25 mg Dextrose (D10) 250 mls @ 750 mls/hr IV Q15M PRN; Protocol PRN Reason: per Hypoglycemia Standing Ord. Insulin Glargine (Insulin Glargine,Hum.Rec.Anlog 100 Unit/Ml 10 Ml Vial) 20 unit SUBCUT BEDTIME [facility] Last Admin: 10/28/23 21:55 Dose: 20 unit Insulin Human Lispro (Insulin Lispro 100 Unit/Ml 3 Ml Vial) 0 unit SUBCUT QIDACHS [facility]; Protocol Last Admin: 10/29/23 08:58 Dose: Not Given Lamotrigine (Lamotrigine 100 Mg Tablet) 100 mg PO BEDTIME [facility] Last Admin: 10/28/23 21:54 Dose: 100 mg Levothyroxine Sodium (Levothyroxine Sodium 200 Mcg Tablet) 200 mcg PO DAILY [facility] Last Admin: 10/29/23 08:36 Dose: 200 mcg Magnesium Hydroxide (Milk Of Magnesia 30 Ml Oral.Susp) 30 ml PO DAILY PRN PRN Reason: Constipation Memantine (Memantine Hcl 5 Mg Tablet) 5 mg PO BID [facility] Last Admin: 10/29/23 08:36 Dose: 5 mg Metformin HCl (Metformin Hcl Er 500 Mg Tab.Er.24h) 1,000 mg PO DAILY@1700 [facility] Last Admin: 10/28/23 18:07 Dose: 1,000 mg Nicotine Polacrilex (Nicotine Polacrilex 2 Mg Gum) 4 mg BUCCAL Q2H PRN PRN Reason: Nicotine Cravings Sertraline HCl (Sertraline Hcl 100 Mg Tablet) 100 mg PO DAILY [facility] Last Admin: 10/29/23 08:36 Dose: 100 mg Simethicone (Simethicone 80 Mg Tab.Chew) 80 mg PO QIDWMHS [facility] Last Admin: 10/29/23 08:37 Dose: 80 mg Trazodone HCl (Trazodone Hcl 50 Mg Tablet) 50 mg PO BEDTIME MRX1 PRN PRN Reason: Insomnia Last Admin: 10/27/23 20:38 Dose: 50 mg Allergies Allergies Allergy/AdvReac Type Severity Reaction Status Date / Time amoxicillin [AMOXICILLIN] Allergy Mild VOMITING/ABD Verified 09/10/23 19:44 PAIN Assessment & Plan Assessment & Plan (1) Schizoaffective disorder: Status: Acute Code(s): F25.9 - Schizoaffective disorder, unspecified (2) Hypothyroidism: Status: Acute Code(s): E03.9 - Hypothyroidism, unspecified (3) Type 2 diabetes mellitus: Status: Acute Code(s): E11.9 - Type 2 diabetes mellitus without complications Plan Patient is a 58 year old male with hx of Schizoaffective d/o and hypothyroid disorder/thyroid coma, stroke and brain aneurysm, who was brought to [facility] on a [address] d/t disorganized behavior, concern for his memory impairment, medications noncompliance and poor ADLs. Plan: CV 15 minute safety checks Continue home medications: Haldol 10mg PO daily Synthroid 200mcg PO daily Obtain labs; A1C/POCs Obtain collateral from sister Obtain records from last hospitalization. MOCA Referral for [facility] services if patient is agreeable. encourage medication compliance;consider VARGAS discharge planning 09/11: Elevated fasting blood sugar elevated hemoglobin A1c 9.2 med consult placed put in point of care needed will start metformin Would benefit from clarity over recent hospitalization what this were done details regarding treatment continue Haldol unclear if patient has Healthcare proxy his [place] was low slowed cognition with poor details in depth at times during blankly regarding making judgments Unclear if any of this relates to past coma or 2 hypothyroidism. He does seem more impaired than when last seen unclear when last imaging was. Continue Haldol sitter neuro indira involvement regarding diagnostic picture. Patient does remain paranoid blunted suspicious apathetic. He might benefit from longer-term placement if available and appropriate at a later time involved [facility] involvement would be quite helpful 09/12: cont haldol get records ? hcp ? start antidep unclear hx 09/13: Keeping to self. More talkative today. Pt concerned he will be transferred to [facility]. Pt stated, The paper I signed yesterday. Are you going to send me back to the last hospital? That place was horrible . Pt was educated he signed a release of information with Dr. Gonzalez to obtain records from [facility]. Pt was given a copy of the release he signed. Despite this, pt continues to be anxious about being transferred. Pt denies SI/HI/VH/AH. 09/14: Keeping to self. active on unit. showered. Pt reports feeling alright today; pt reports he is worried about where I'm going to go . Pt continues concerned he will be transferred to [facility]. Pt denies SI/HI/VH/AH. 09/15:Pt reports feeling alright today; pt continues to report he is worried about where I'm going to go . Responding with brief responses. Guarded. Observed standing in one place for a long period of time. Appears confused. Pt denies SI/HI/VH/AH. T/W spoke to patient's sister, Ros, with patients verbal consent. Ros reports concerns regarding patients ability to make decisions regarding his mental and physical health. She plans on contacting legal advice on obtaining guardianship of patient. 09/16:Patient's presents similar to yesterday's presentation. Responding with brief responses. Guarded. Observed standing in one place for a long period of time, when asked what he is doing, pt stated, I don't know . Pt reports he plans on contacting his sister today and try to convince her for me to stay there . Pt denies SI/HI/VH/AH. Continue current tx plan. 09/17: brief responses. Guarded. 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 Pt denies SI/HI/VH/AH. T/W and Dr. Gonzalez spoke to patient's sister, Ros. Ros stated being [facility] HCP and plans on finding document. She plans on coming to the hospital on Saturday to be present for [facility] intake. 09/22/2023: No changes 09/23/2023 Patient flat apathetic difficult insight and judgment his sister is healthcare proxy if needed patient is accepting medical treatment Referral to [facility] 09/24/23 Considers starting Haldol Decanoate patient is agreeable superficially difficulty with exec fx was seen [facility] 09/25/23 Pt seen in f/u mood flat dysphoric difficulty engaging in conversation preoccupied with thought he wont be living with family thing slowed apathetic no clear response with namenda ? some improvement inc lamictal start low dose sertraline inc lamictal ck tsh 09/26/2023 Start Abilify as augmentation with Haldol see if can be more stimulating regarding depressed mood apathetic limited engagement sertraline 50 mg Lamictal 25 b.i.d. referral to [facility] which would have structure unclear if patient can engage with this he remains quite depressed has delusional beliefs regarding housing and that things have been done he has repeatedly tried to reach out to his sister denies active SI needs much help dressing talking with others encouragement to eat severe thought blocking Abilify might be more stimulating than Haldol which can be more dulling 09/27/23 Abilinathaniel started sertraline Lamictal encouraged step-down to [facility] encourage reality orientation denies active SI 09/27: Continue current regimen and plans 09/28: Continue current regimen and plans. 09/30/2023 Referral to [facility] increase Abilify to 5 mg daily eventually try and taper Haldol sertraline 50 mg daily 10/01/2023 Increase Abilify to 10 mg lower Haldol to 7 mg continue sertraline and Lamictal 10/02/2023 Abilify increased to 10 mg continue to taper Haldol sertraline 100 mg Lamictal increased to 75 mg patient apathetic withdrawn difficulty with placement some paranoia continues difficulty with decision making at times. Not physically aggressive internally preoccupied seems somewhat improved with Abilify sertraline Continue discharge planning 10/03/2023 Patient somewhat blunted flat slowed thinking during the day times staring. Change Abilify to 10 mg at bedtime. Scheduled Haldol will lowered to 2.5 mg Continue sertraline 100 mg Namenda 5 b.i.d. 10/04/2023 . Haldol discontinued modafinil low-dose monitor for psychosis or agitation continue discharge planning 10/07/2023 May need to firm healthcare proxy calls have been placed to sister to try to help in discharge planning. Referrals made. Patient cooperative with care 10/08/2023 Pharmacy ordering Abilify maintain a increase modafinil 100 mg patient remains flat passive depressed some improvement noted no current paranoia noted continue discharge planning no current safe discharge plan 10/09/2023 Increase Lamictal 100 mg Abilify Maintena 400 mg hold modafinil unclear if was overly stimulating patient continues to present internally preoccupied. 10/10/23 Healthcare proxy invoked discharge planning continue Lamictal Abilify pending maintain a 10/11/2023 Healthcare proxy invoked new CV signed discharge planning. 10/11 keep same treatment 10/12 keep same treatment 10/14/2023 Continue plan of care Lamictal Abilify discharge planning sertraline 10/14: stable. continue current mgmt. 10/15: stable. continue current mgmt. 10/16: stable presentation. continue current mgmt. 10/17: as for yesterday. 10/18: no changes. 10/19: stabel, safe. no change. 10/20: no change in presentation. calm, cooperative. active on unit, social with select peers, attending groups. Pt reports feeling alright . denies SI/HI/VH/AH. Social work waiting to hear from possible placement location. Continue current tx plan. 10/21: continue current tx plan. awaiting placement. 10/22: calm, cooperative. active on unit, social with select peers, attending groups. Pt reports feeling good ; pt stated, I'm waiting to see where I'm going . denies SI/HI/VH/AH. Showered with encouragement. 10/23: continue current tx plan. 10/24: calm, cooperative. active on unit, social with select peers, attending groups. Pt reports feeling good ; pt stated, I just want a place to live . 10/25- likely at baseline for him- CTP 10/26 CTP likely needs placement 10/27: continue current tx plan. awaiting placement. 10/28: Similar to yesterday. No change in presentation. Patient educated on: medication risk/benefits Reason for continued inpatient stay Substantial Risk for: other (Awaiting placement) Time Spent With Patient Time: Total time managing care of this patient today _20___ minutes.
[2023-10-29 12:54] LABS: Glucose, Whole Blood 197 mg/dL (60-115)
[2023-10-29] MEDS: Insulin Lispro 100 UNIT/ML 3 ML VIAL SUBCUT ×2 (13:49→18:33)
[2023-10-29 17:48] LABS: Glucose, Whole Blood 188 mg/dL (60-115)
[2023-10-29] MEDS: metFORMIN HCl ER 500 MG TAB.ER.24H 1000 MG PO (18:34)
[2023-10-29 19:45] VITALS: BP 123/65; PULSE 87; RESP 18; TEMP 36.9; O2SAT 95
[2023-10-29 20:50] LABS: Glucose, Whole Blood 149 mg/dL (60-115)
[2023-10-29] MEDS: ARIPiprazole 10 MG TABLET PO (21:04)
[2023-10-29] MEDS: lamoTRIgine 100 MG TABLET PO (21:04)
[2023-10-29] MEDS: Insulin Glargine,Hum.rec.anlog 100 UNIT/ML 10 ML VIAL 20 UNIT SUBCUT (21:05)
[2023-10-30 07:33] VITALS: BP 130/74; PULSE 104; RESP 18; TEMP 36.9; O2SAT 95
--- NOTE | 2023-10-30 08:12 | P.PNPSI_ITS ---
Subjective Subjective Date of Service: 10/30/23 Reason For Visit: paranoia cognitive impairment Subjective Notes: Conditional Voluntary Interim History: Reviewed with Dr. Gonzalez. calm, cooperative. active on unit, social with select peers, attending groups. Pt reports feeling good ;pt stated, just waiting for a place to live . denies any issues at this time. Awaiting placement. Medication Compliance: Yes Side effects from medications: No Attending Groups: Yes Review of Systems Constitutional: Reports as per HPI Eyes: Reports as per HPI Reports as per HPI Cardiovascular: Reports as per HPI Respiratory: Reports as per HPI Gastrointestinal: Reports as per HPI Genitourinary: Reports as per HPI Musculoskeletal: Reports as per HPI Skin/Breast: Reports as per HPI Reports as per HPI Psychiatric: Reports as per HPI Endocrine: Reports as per HPI Hematologic/Lymphatic: Reports as per HPI Allergic/Immunologic: Reports as per HPI Mental Status Exam Mental Status Exam Patient Appearance: Appropriate Patient Orientation: Person, Place and Situation Level of Consciousness: Awake Patient Behavior: Appropriate, Cooperative and Passive Mood Description: Calm Affect Description: Blunted Patient Cognition Impaired: Yes Ability to Follow Directions: Fair Speech Pattern: Clear 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: Halfway Impaired Diagnostics Vital Signs (24Hr): Vital Signs - 24 hr 10/29/23 19:45 10/30/23 07:33 Temperature 98.4 F 98.4 F Pulse Rate 87 104 H Respiratory Rate 18 18 Blood Pressure 123/65 130/74 Pulse Oximetry 95 95 Oxygen Delivery Method Room Air Room Air BMI result Body Mass Index 31.2 Labs 09/10/23 20:00 10/24/23 08:50 Labs: Laboratory Results - last 48 hr 10/28/23 10/28/23 10/28/23 08:23 12:33 18:07 POC Glucose 121 H 162 H 178 H 10/28/23 10/29/23 10/29/23 21:44 08:43 12:50 POC Glucose 151 H 119 H 197 H 10/29/23 10/29/23 17:40 20:45 POC Glucose 188 H 149 H Imaging Radiology Impressions: ITS Impressions Brain MRI 09/19/23 20:33 IMPRESSION: 1. No demonstrated acute intracranial abnormalities. 2. Chronic mild to moderate nonspecific white matter changes, most notably in the deep white matter of the right frontal lobe. Mild to moderate generalized cerebral volume loss. Medications Medications Current Medications Acetaminophen (Acetaminophen 325 Mg Tablet) 650 mg PO Q6H PRN PRN Reason: Headache/Pain Mild Scale (1-3) Last Admin: 10/13/23 09:39 Dose: 650 mg Al Hydroxide/Mg Hydroxide (Magnesium Hydrox/Alum Hydrox 30 Ml Oral.Susp) 30 ml PO Q6H PRN PRN Reason: Heartburn/Nausea Aripiprazole (Aripiprazole 10 Mg Tablet) 10 mg PO BEDTIME [facility] Last Admin: 10/29/23 21:04 Dose: 10 mg Benztropine Mesylate (Benztropine Mesylate 0.5 Mg Tablet) 0.5 mg PO TID PRN PRN Reason: Extrapyramidal Effects Glucose (Glucose Gel 15 Gm Gel..Gram.) 15 gm PO Q15M PRN; Protocol PRN Reason: per Hypoglycemia Standing Ord. Hydroxyzine HCl (Hydroxyzine Hcl 25 Mg Tablet) 25 mg PO Q6H PRN PRN Reason: Anxiety Last Admin: 10/27/23 20:38 Dose: 25 mg Dextrose (D10) 250 mls @ 750 mls/hr IV Q15M PRN; Protocol PRN Reason: per Hypoglycemia Standing Ord. Insulin Glargine (Insulin Glargine,Hum.Rec.Anlog 100 Unit/Ml 10 Ml Vial) 20 unit SUBCUT BEDTIME [facility] Last Admin: 10/29/23 21:05 Dose: 20 unit Insulin Human Lispro (Insulin Lispro 100 Unit/Ml 3 Ml Vial) 0 unit SUBCUT QIDACHS [facility]; Protocol Last Admin: 10/29/23 21:10 Dose: Not Given Lamotrigine (Lamotrigine 100 Mg Tablet) 100 mg PO BEDTIME [facility] Last Admin: 10/29/23 21:04 Dose: 100 mg Levothyroxine Sodium (Levothyroxine Sodium 200 Mcg Tablet) 200 mcg PO DAILY [facility] Last Admin: 10/29/23 08:36 Dose: 200 mcg Magnesium Hydroxide (Milk Of Magnesia 30 Ml Oral.Susp) 30 ml PO DAILY PRN PRN Reason: Constipation Memantine (Memantine Hcl 5 Mg Tablet) 5 mg PO BID [facility] Last Admin: 10/29/23 21:04 Dose: 5 mg Metformin HCl (Metformin Hcl Er 500 Mg Tab.Er.24h) 1,000 mg PO DAILY@1700 [facility] Last Admin: 10/29/23 18:34 Dose: 1,000 mg Nicotine Polacrilex (Nicotine Polacrilex 2 Mg Gum) 4 mg BUCCAL Q2H PRN PRN Reason: Nicotine Cravings Sertraline HCl (Sertraline Hcl 100 Mg Tablet) 100 mg PO DAILY [facility] Last Admin: 10/29/23 08:36 Dose: 100 mg Simethicone (Simethicone 80 Mg Tab.Chew) 80 mg PO QIDWMHS [facility] Last Admin: 10/29/23 21:04 Dose: 80 mg Trazodone HCl (Trazodone Hcl 50 Mg Tablet) 50 mg PO BEDTIME MRX1 PRN PRN Reason: Insomnia Last Admin: 10/27/23 20:38 Dose: 50 mg Allergies Allergies Allergy/AdvReac Type Severity Reaction Status Date / Time amoxicillin [AMOXICILLIN] Allergy Mild VOMITING/ABD Verified 09/10/23 19:44 PAIN Assessment & Plan Assessment & Plan (1) Schizoaffective disorder: Status: Acute Code(s): F25.9 - Schizoaffective disorder, unspecified (2) Hypothyroidism: Status: Acute Code(s): E03.9 - Hypothyroidism, unspecified (3) Type 2 diabetes mellitus: Status: Acute Code(s): E11.9 - Type 2 diabetes mellitus without complications Plan Patient is a 58 year old male with hx of Schizoaffective d/o and hypothyroid disorder/thyroid coma, stroke and brain aneurysm, who was brought to [facility] ER on a [address] 12 d/t disorganized behavior, concern for his memory impairment, medications noncompliance and poor ADLs. Plan: CV 15 minute safety checks Continue home medications: Haldol 10mg PO daily Synthroid 200mcg PO daily Obtain labs; A1C/POCs Obtain collateral from sister Obtain records from last hospitalization. MOCA Referral for DMH services if patient is agreeable. encourage medication compliance;consider VARGAS discharge planning 09/11: Elevated fasting blood sugar elevated hemoglobin A1c 9.2 med consult placed put in point of care needed will start metformin Would benefit from clarity over recent hospitalization what this were done details regarding treatment continue Haldol unclear if patient has Healthcare proxy his [place] was low slowed cognition with poor details in depth at times during blankly regarding making judgments Unclear if any of this relates to past coma or 2 hypothyroidism. He does seem more impaired than when last seen unclear when last imaging was. Continue Haldol sitter neuro indira involvement regarding diagnostic picture. Patient does remain paranoid blunted suspicious apathetic. He might benefit from longer- term placement if available and appropriate at a later time involved H involvement would be quite helpful 09/12: cont haldol get records ? hcp ? start antidep unclear hx 09/13: Keeping to self. More talkative today. Pt concerned he will be transferred to [facility]. Pt stated, The paper I signed yesterday. Are you going to send me back to the last hospital? That place was horrible . Pt was educated he signed a release of information with Dr. Gonzalez to obtain records from [facility]. Pt was given a copy of the release he signed. Despite this, pt continues to be anxious about being transferred. Pt denies SI/HI/VH/AH. 09/14: Keeping to self. active on unit. showered. Pt reports feeling alright today; pt reports he is worried about where I'm going to go . Pt continues concerned he will be transferred to [facility]. Pt denies SI/HI/VH/AH. 09/15:Pt reports feeling alright today; pt continues to report he is worried about where I'm going to go . Responding with brief responses. Guarded. Observed standing in one place for a long period of time. Appears confused. Pt denies SI/HI/VH/AH. T/W spoke to patient's sister, Ros, with patients verbal consent. Rso reports concerns regarding patients ability to make decisions regarding his mental and physical health. She plans on contacting legal advice on obtaining guardianship of patient. 09/16:Patient's presents similar to yesterday's presentation. Responding with brief responses. Guarded. Observed standing in one place for a long period of time, when asked what he is doing, pt stated, I don't know . Pt reports he plans on contacting his sister today and try to convince her for me to stay there . Pt denies SI/HI/VH/AH. Continue current tx plan. 09/17: brief responses. Guarded. 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 Pt denies SI/HI/VH/AH. T/W and Dr. Gonzalez spoke to patient's sister, Ros. Ros stated being [facility] HCP and plans on finding document. She plans on coming to the hospital on Saturday [facility]. 09/22/2023: No changes 09/23/2023 Patient flat apathetic difficult insight and judgment his sister is healthcare proxy if needed patient is accepting medical treatment Referral to [facility] 09/24/23 Considers starting Haldol Decanoate patient is agreeable superficially difficulty with [facility]23 Pt seen in f/u mood flat dysphoric difficulty engaging in conversation preoccupied with thought he wont be living with family thing slowed apathetic no clear response with namenda ? some improvement inc lamictal start low dose sertraline inc lamictal ck tsh 09/26/2023 Start Abilify as augmentation with Haldol see if can be more stimulating regarding depressed mood apathetic limited engagement sertraline 50 mg Lamictal 25 b.i.d. referral to [facility] which would have structure unclear if patient can engage with this he remains quite depressed has delusional beliefs regarding housing and that things have been done he has repeatedly tried to reach out to his sister denies active SI needs much help dressing talking with others encouragement to eat severe thought blocking Abilify might be more stimulating than Haldol which can be more dulling 09/27/23 Abilinathaniel started sertraline Lamictal encouraged step-down to [facility] encourage reality orientation denies active SI 09/27: Continue current regimen and plans 09/28: Continue current regimen and plans. 09/30/2023 Referral to [facility] increase Abilify to 5 mg daily eventually try and taper Haldol sertraline 50 mg daily 10/01/2023 Increase Abilify to 10 mg lower Haldol to 7 mg continue sertraline and Lamictal 10/02/2023 Abilify increased to 10 mg continue to taper Haldol sertraline 100 mg Lamictal increased to 75 mg patient apathetic withdrawn difficulty with placement some paranoia continues difficulty with decision making at times. Not physically aggressive internally preoccupied seems somewhat improved with Abilify sertraline Continue discharge planning 10/03/2023 Patient somewhat blunted flat slowed thinking during the day times staring. Change Abilify to 10 mg at bedtime. Scheduled Haldol will lowered to 2.5 mg Continue sertraline 100 mg Namenda 5 b.i.d. 10/04/2023 . Haldol discontinued modafinil low-dose monitor for psychosis or agitation continue discharge planning 10/07/2023 May need to firm healthcare proxy calls have been placed to sister to try to help in discharge planning. Referrals made. Patient cooperative with care 10/08/2023 Pharmacy ordering Abilify maintain a increase modafinil 100 mg patient remains flat passive depressed some improvement noted no current paranoia noted continue discharge planning no current safe discharge plan 10/09/2023 Increase Lamictal 100 mg Abilify Maintena 400 mg hold modafinil unclear if was overly stimulating patient continues to present internally preoccupied. 10/10/23 Healthcare proxy invoked discharge planning continue Lamictal Abilify pending maintain a 10/11/2023 Healthcare proxy invoked new CV signed discharge planning. 10/11 keep same treatment 10/12 keep same treatment 10/14/2023 Continue plan of care Lamictal Abilify discharge planning sertraline 10/14: stable. continue current mgmt. 10/15: stable. continue current mgmt. 10/16: stable presentation. continue current mgmt. 10/17: as for yesterday. 10/18: no changes. 10/19: stabel, safe. no change. 10/20: no change in presentation. calm, cooperative. active on unit, social with select peers, attending groups. Pt reports feeling alright . denies SI/HI/VH/AH. Social work waiting to hear from possible placement location. Continue current tx plan. 10/21: continue current tx plan. awaiting placement. 10/22: calm, cooperative. active on unit, social with select peers, attending groups. Pt reports feeling good ; pt stated, I'm waiting to see where I'm going . denies SI/HI/VH/AH. Showered with encouragement. 10/23: continue current tx plan. 10/24: calm, cooperative. active on unit, social with select peers, attending groups. Pt reports feeling good ; pt stated, I just want a place to live . 10/25- likely at baseline for him- CTP 10/26 CTP likely needs placement 10/27: continue current tx plan. awaiting placement. 10/28: Similar to yesterday. No change in presentation. 10/29: Pt reports feeling good ;pt stated, just waiting for a place to live . denies any issues at this time. Patient educated on: diagnosis and medication risk/benefits Reason for continued inpatient stay Substantial Risk for: other (awaiting placement.) Time Spent With Patient Time: Total time managing care of this patient today _20___ minutes.
[2023-10-30] MEDS: Levothyroxine Sodium 200 MCG TABLET PO (08:45)
[2023-10-30] MEDS: Sertraline HCL 100 MG TABLET PO (08:45)
[2023-10-30] MEDS: Memantine HCl 5 MG TABLET PO ×2 (08:45→20:35)
[2023-10-30] MEDS: Simethicone 80 MG TAB.CHEW PO ×4 (08:46→21:22)
[2023-10-30 08:49] LABS: Glucose, Whole Blood 123 mg/dL (60-115)
[2023-10-30 12:53] LABS: Glucose, Whole Blood 177 mg/dL (60-115)
[2023-10-30] MEDS: Insulin Lispro 100 UNIT/ML 3 ML VIAL SUBCUT ×2 (13:32→20:37)
[2023-10-30 16:05] VITALS: BP 138/78; PULSE 69; RESP 16; TEMP 36.5; O2SAT 97
[2023-10-30] MEDS: metFORMIN HCl ER 500 MG TAB.ER.24H 1000 MG PO (17:04)
[2023-10-30 17:57] LABS: Glucose, Whole Blood 128 mg/dL (60-115)
[2023-10-30 20:00] VITALS: BP 128/73; PULSE 93; RESP 16; TEMP 36.8; O2SAT 96
[2023-10-30 20:29] LABS: Glucose, Whole Blood 189 mg/dL (60-115)
[2023-10-30] MEDS: ARIPiprazole 10 MG TABLET PO (20:35)
[2023-10-30] MEDS: lamoTRIgine 100 MG TABLET PO (20:35)
[2023-10-30] MEDS: Insulin Glargine,Hum.rec.anlog 100 UNIT/ML 10 ML VIAL 20 UNIT SUBCUT (20:36)
[2023-10-31 07:00] VITALS: BMI 31.4
[2023-10-31 08:00] VITALS: BP 146/70; PULSE 100; RESP 16; TEMP 36.8; O2SAT 96
[2023-10-31] MEDS: Sertraline HCL 100 MG TABLET PO (08:40)
[2023-10-31] MEDS: Levothyroxine Sodium 200 MCG TABLET PO (08:40)
[2023-10-31] MEDS: Memantine HCl 5 MG TABLET PO ×2 (08:40→21:00)
[2023-10-31] MEDS: Simethicone 80 MG TAB.CHEW PO ×4 (08:41→21:00)
--- NOTE | 2023-10-31 08:41 | HO.PSYCHPN ---
Subjective Subjective Date of Service: 10/31/23 Reason For Visit: paranoia cognitive impairment Subjective Notes: Conditional Voluntary Interim History: Reviewed with Dr. Gonzalez. calm, cooperative. active on unit, social with select peers, attending groups. Pt reports feeling worried about where I am going to live . denies any issues at this time. Medication Compliance: Yes Side effects from medications: No Attending Groups: Yes Review of Systems Constitutional: Reports as per HPI Eyes: Reports as per HPI Reports as per HPI Cardiovascular: Reports as per HPI Respiratory: Reports as per HPI Gastrointestinal: Reports as per HPI Genitourinary: Reports as per HPI Musculoskeletal: Reports as per HPI Skin/Breast: Reports as per HPI Reports as per HPI Psychiatric: Reports as per HPI Endocrine: Reports as per HPI Hematologic/Lymphatic: Reports as per HPI Allergic/Immunologic: Reports as per HPI Mental Status Exam Mental Status Exam Patient Appearance: Appropriate Patient Orientation: Person, Place and Situation Level of Consciousness: Awake Patient Behavior: Appropriate and Cooperative Mood Description: Calm Affect Description: Blunted Patient Cognition Impaired: Yes Ability to Follow Directions: Fair Speech Pattern: Clear and Soft-Spoken 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 Thought Process: Linear Thought Content: positive for Goal Oriented Diagnostics Vital Signs (24Hr): Vital Signs - 24 hr 10/30/23 16:05 10/30/23 20:00 10/31/23 08:00 Temperature 97.7 F 98.3 F 98.2 F Pulse Rate 69 93 100 Respiratory Rate 16 16 16 Blood Pressure 138/78 128/73 146/70 H Pulse Oximetry 97 96 96 Oxygen Delivery Method Room Air Room Air Room Air BMI result Body Mass Index 31.2 Labs 09/10/23 20:00 10/31/23 09:47 Labs: Laboratory Results - last 48 hr 10/29/23 10/29/23 10/29/23 08:43 12:50 17:40 POC Glucose 119 H 197 H 188 H 10/29/23 10/30/23 10/30/23 20:45 08:39 12:50 POC Glucose 149 H 123 H 177 H 10/30/23 10/30/23 17:43 20:24 POC Glucose 128 H 189 H Imaging Radiology Impressions: ITS Impressions Brain MRI 09/19/23 20:33 IMPRESSION: 1. No demonstrated acute intracranial abnormalities. 2. Chronic mild to moderate nonspecific white matter changes, most notably in the deep white matter of the right frontal lobe. Mild to moderate generalized cerebral volume loss. Medications Medications Current Medications Acetaminophen (Acetaminophen 325 Mg Tablet) 650 mg PO Q6H PRN PRN Reason: Headache/Pain Mild Scale (1-3) Last Admin: 10/13/23 09:39 Dose: 650 mg Al Hydroxide/Mg Hydroxide (Magnesium Hydrox/Alum Hydrox 30 Ml Oral.Susp) 30 ml PO Q6H PRN PRN Reason: Heartburn/Nausea Aripiprazole (Aripiprazole 10 Mg Tablet) 10 mg PO BEDTIME [facility] Last Admin: 10/30/23 20:35 Dose: 10 mg Benztropine Mesylate (Benztropine Mesylate 0.5 Mg Tablet) 0.5 mg PO TID PRN PRN Reason: Extrapyramidal Effects Glucose (Glucose Gel 15 Gm Gel..Gram.) 15 gm PO Q15M PRN; Protocol PRN Reason: per Hypoglycemia Standing Ord. Hydroxyzine HCl (Hydroxyzine Hcl 25 Mg Tablet) 25 mg PO Q6H PRN PRN Reason: Anxiety Last Admin: 10/27/23 20:38 Dose: 25 mg Dextrose (D10) 250 mls @ 750 mls/hr IV Q15M PRN; Protocol PRN Reason: per Hypoglycemia Standing Ord. Insulin Glargine (Insulin Glargine,Hum.Rec.Anlog 100 Unit/Ml 10 Ml Vial) 20 unit SUBCUT BEDTIME [facility] Last Admin: 10/30/23 20:36 Dose: 20 unit Insulin Human Lispro (Insulin Lispro 100 Unit/Ml 3 Ml Vial) 0 unit SUBCUT QIDACHS [facility]; Protocol Last Admin: 10/30/23 20:37 Dose: 2 unit Lamotrigine (Lamotrigine 100 Mg Tablet) 100 mg PO BEDTIME [facility] Last Admin: 10/30/23 20:35 Dose: 100 mg Levothyroxine Sodium (Levothyroxine Sodium 200 Mcg Tablet) 200 mcg PO DAILY [facility] Last Admin: 10/30/23 08:45 Dose: 200 mcg Magnesium Hydroxide (Milk Of Magnesia 30 Ml Oral.Susp) 30 ml PO DAILY PRN PRN Reason: Constipation Memantine (Memantine Hcl 5 Mg Tablet) 5 mg PO BID [facility] Last Admin: 10/30/23 20:35 Dose: 5 mg Metformin HCl (Metformin Hcl Er 500 Mg Tab.Er.24h) 1,000 mg PO DAILY@1700 [facility] Last Admin: 10/30/23 17:04 Dose: 1,000 mg Nicotine Polacrilex (Nicotine Polacrilex 2 Mg Gum) 4 mg BUCCAL Q2H PRN PRN Reason: Nicotine Cravings Sertraline HCl (Sertraline Hcl 100 Mg Tablet) 100 mg PO DAILY [facility] Last Admin: 10/30/23 08:45 Dose: 100 mg Simethicone (Simethicone 80 Mg Tab.Chew) 80 mg PO QIDWMHS [facility] Last Admin: 10/30/23 21:22 Dose: 80 mg Trazodone HCl (Trazodone Hcl 50 Mg Tablet) 50 mg PO BEDTIME MRX1 PRN PRN Reason: Insomnia Last Admin: 10/27/23 20:38 Dose: 50 mg Allergies Allergies Allergy/AdvReac Type Severity Reaction Status Date / Time amoxicillin [AMOXICILLIN] Allergy Mild VOMITING/ABD Verified 09/10/23 19:44 PAIN Assessment & Plan Assessment & Plan (1) Schizoaffective disorder: Status: Acute Code(s): F25.9 - Schizoaffective disorder, unspecified (2) Hypothyroidism: Status: Acute Code(s): E03.9 - Hypothyroidism, unspecified (3) Type 2 diabetes mellitus: Status: Acute Code(s): E11.9 - Type 2 diabetes mellitus without complications Plan Patient is a 58 year old male with hx of Schizoaffective d/o and hypothyroid disorder/thyroid coma, stroke and brain aneurysm, who was brought to [facility] on a [address] 12 d/t disorganized behavior, concern for his memory impairment, medications noncompliance and poor ADLs. Plan: CV 15 minute safety checks Continue home medications: Haldol 10mg PO daily Synthroid 200mcg PO daily Obtain labs; A1C/POCs Obtain collateral from sister Obtain records from last hospitalization. MOCA Referral for [facility]H services if patient is agreeable. encourage medication compliance;consider VARGAS discharge planning 09/11: Elevated fasting blood sugar elevated hemoglobin A1c 9.2 med consult placed put in point of care needed will start metformin Would benefit from clarity over recent hospitalization what this were done details regarding treatment continue Haldol unclear if patient has Healthcare proxy his [place] was low slowed cognition with poor details in depth at times during blankly regarding making judgments Unclear if any of this relates to past coma or 2 hypothyroidism. He does seem more impaired than when last seen unclear when last imaging was. Continue Haldol [facility] involvement regarding diagnostic picture. Patient does remain paranoid blunted suspicious apathetic. He might benefit from longer-term placement if available and appropriate at a later time involved [facility] involvement would be quite helpful 09/12: cont haldol get records ? hcp ? start antidep unclear hx 09/13: Keeping to self. More talkative today. Pt concerned he will be transferred to [facility]. Pt stated, The paper I signed yesterday. Are you going to send me back to the last hospital? That place was horrible . Pt was educated he signed a release of information with Dr. Gonzalez to obtain records from [facility]. Pt was given a copy of the release he signed. Despite this, pt continues to be anxious about being transferred. Pt denies SI/HI/VH/AH. 09/14: Keeping to self. active on unit. showered. Pt reports feeling alright today; pt reports he is worried about where I'm going to go . Pt continues concerned he will be transferred to [facility]. Pt denies SI/HI/VH/AH. 09/15:Pt reports feeling alright today; pt continues to report he is worried about where I'm going to go . Responding with brief responses. Guarded. Observed standing in one place for a long period of time. Appears confused. Pt denies SI/HI/VH/AH. T/W spoke to patient's sister, Ros, with patients verbal consent. Ros reports concerns regarding patients ability to make decisions regarding his mental and physical health. She plans on contacting legal advice on obtaining guardianship of patient. 09/16:Patient's presents similar to yesterday's presentation. Responding with brief responses. Guarded. Observed standing in one place for a long period of time, when asked what he is doing, pt stated, I don't know . Pt reports he plans on contacting his sister today and try to convince her for me to stay there . Pt denies SI/HI/VH/AH. Continue current tx plan. 09/17: brief responses. Guarded. 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 Pt denies SI/HI/VH/AH. T/W and Dr. Gonzalez spoke to patient's sister, Ros. Ros stated being [facility] HCP and plans on finding document. She plans on coming to the hospital on Saturday to be present for [facility] intake. 09/22/2023: No changes 09/23/2023 Patient flat apathetic difficult insight and judgment his sister is healthcare proxy if needed patient is accepting medical treatment Referral to [facility] 09/24/23 Considers starting Haldol Decanoate patient is agreeable superficially difficulty with exec fx was seen [facility] 09/25/23 Pt seen in f/u mood flat dysphoric difficulty engaging in conversation preoccupied with thought he wont be living with family thing slowed apathetic no clear response with namenda ? some improvement inc lamictal start low dose sertraline inc lamictal ck tsh 09/26/2023 Start Abilify as augmentation with Haldol see if can be more stimulating regarding depressed mood apathetic limited engagement sertraline 50 mg Lamictal 25 b.i.d. referral to [facility] which would have structure unclear if patient can engage with this he remains quite depressed has delusional beliefs regarding housing and that things have been done he has repeatedly tried to reach out to his sister denies active SI needs much help dressing talking with others encouragement to eat severe thought blocking Abilify might be more stimulating than Haldol which can be more dulling 09/27/23 Abilify started sertraline Lamictal encouraged step-down to [facility] encourage reality orientation denies active SI 09/27: Continue current regimen and plans 09/28: Continue current regimen and plans. 09/30/2023 Referral to [facility] [place] increase Abilify to 5 mg daily eventually try and taper Haldol sertraline 50 mg daily 10/01/2023 Increase Abilify to 10 mg lower Haldol to 7 mg continue sertraline and Lamictal 10/02/2023 Abilify increased to 10 mg continue to taper Haldol sertraline 100 mg Lamictal increased to 75 mg patient apathetic withdrawn difficulty with placement some paranoia continues difficulty with decision making at times. Not physically aggressive internally preoccupied seems somewhat improved with Abilify sertraline Continue discharge planning 10/03/2023 Patient somewhat blunted flat slowed thinking during the day times staring. Change Abilify to 10 mg at bedtime. Scheduled Haldol will lowered to 2.5 mg Continue sertraline 100 mg Namenda 5 b.i.d. 10/04/2023 . Haldol discontinued modafinil low-dose monitor for psychosis or agitation continue discharge planning 10/07/2023 May need to firm healthcare proxy calls have been placed to sister to try to help in discharge planning. Referrals made. Patient cooperative with care 10/08/2023 Pharmacy ordering Abilify maintain a increase modafinil 100 mg patient remains flat passive depressed some improvement noted no current paranoia noted continue discharge planning no current safe discharge plan 10/09/2023 Increase Lamictal 100 mg Abilify Maintena 400 mg hold modafinil unclear if was overly stimulating patient continues to present internally preoccupied. 10/10/23 Healthcare proxy invoked discharge planning continue Lamictal Abilify pending maintain a 10/11/2023 Healthcare proxy invoked new CV signed discharge planning. 10/11 keep same treatment 10/12 keep same treatment 10/14/2023 Continue plan of care Lamictal Abilify discharge planning sertraline 10/14: stable. continue current mgmt. 10/15: stable. continue current mgmt. 10/16: stable presentation. continue current mgmt. 10/17: as for yesterday. 10/18: no changes. 10/19: stabel, safe. no change. 10/20: no change in presentation. calm, cooperative. active on unit, social with select peers, attending groups. Pt reports feeling alright . denies SI/HI/VH/AH. Social work waiting to hear from possible placement location. Continue current tx plan. 10/21: continue current tx plan. awaiting placement. 10/22: calm, cooperative. active on unit, social with select peers, attending groups. Pt reports feeling good ; pt stated, I'm waiting to see where I'm going . denies SI/HI/VH/AH. Showered with encouragement. 10/23: continue current tx plan. 10/24: calm, cooperative. active on unit, social with select peers, attending groups. Pt reports feeling good ; pt stated, I just want a place to live . 10/25- likely at baseline for him- CTP 10/26 CTP likely needs placement 10/27: continue current tx plan. awaiting placement. 10/28: Similar to yesterday. No change in presentation. 10/29: Pt reports feeling good ;pt stated, just waiting for a place to live . denies any issues at this time. 10/30: calm, cooperative. active on unit, social with select peers, attending groups. Pt reports feeling worried about where I am going to live . denies any issues at this time. Patient educated on: diagnosis, medication risk/benefits and therapeutic strategies Reason for continued inpatient stay Substantial Risk for: other (Awaiting placement) Time Spent With Patient Time: Total time managing care of this patient today _20___ minutes.
[2023-10-31 08:48] LABS: Glucose, Whole Blood 122 mg/dL (60-115)
[2023-10-31 10:34] LABS: Creatinine Clr Calc Pharmacy 100.3; Estimated Glomerular Filt Rate > 60
[2023-10-31 11:52] LABS: Glucose, Whole Blood 266 mg/dL (60-115)
[2023-10-31 12:53] LABS: Glucose, Whole Blood 247 mg/dL (60-115)
[2023-10-31] MEDS: Insulin Lispro 100 UNIT/ML 3 ML VIAL SUBCUT ×3 (13:01→20:59)
[2023-10-31] MEDS: metFORMIN HCl ER 500 MG TAB.ER.24H 1000 MG PO (17:23)
[2023-10-31 18:00] LABS: Glucose, Whole Blood 230 mg/dL (60-115)
[2023-10-31 20:00] VITALS: BP 130/72; PULSE 91; RESP 16; TEMP 37; O2SAT 96
[2023-10-31 20:40] LABS: Glucose, Whole Blood 219 mg/dL (60-115)
[2023-10-31] MEDS: Insulin Glargine,Hum.rec.anlog 100 UNIT/ML 10 ML VIAL 20 UNIT SUBCUT (20:59)
[2023-10-31] MEDS: lamoTRIgine 100 MG TABLET PO (21:00)
[2023-10-31] MEDS: ARIPiprazole 10 MG TABLET PO (21:00)
[2023-11-01 07:35] VITALS: BP 120/61; PULSE 86; RESP 18; TEMP 36.9; O2SAT 94
[2023-11-01 08:00] VITALS: BP 120/61; PULSE 86; RESP 16; TEMP 36.9; O2SAT 94
--- NOTE | 2023-11-01 08:32 | HO.PSYCHPN ---
Subjective Subjective Date of Service: 11/01/23 Reason For Visit: paranoia cognitive impairment Subjective Notes: Conditional Voluntary Interim History: Reviewed with Dr. Gonzalez. calm, cooperative. active on unit, social with select peers, attending groups. denies any issues at this time. Similar to yesterdays presentation. Medication Compliance: Yes Side effects from medications: No Attending Groups: Yes Review of Systems Constitutional: Reports as per HPI Eyes: Reports as per HPI Reports as per HPI Cardiovascular: Reports as per HPI Respiratory: Reports as per HPI Gastrointestinal: Reports as per HPI Genitourinary: Reports as per HPI Musculoskeletal: Reports as per HPI Skin/Breast: Reports as per HPI Reports as per HPI Psychiatric: Reports as per HPI Endocrine: Reports as per HPI Hematologic/Lymphatic: Reports as per HPI Allergic/Immunologic: Reports as per HPI Mental Status Exam Mental Status Exam Patient Appearance: Appropriate Patient Orientation: Person, Place and Situation Level of Consciousness: Awake Patient Behavior: Appropriate and Cooperative Mood Description: Calm Affect Description: Blunted Patient Cognition Impaired: Yes Ability to Follow Directions: Fair Speech Pattern: Clear and Soft-Spoken 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: Air Technician Impaired Diagnostics Vital Signs (24Hr): Vital Signs - 24 hr 10/31/23 20:00 11/01/23 07:35 Temperature 98.6 F 98.5 F Pulse Rate 91 86 Respiratory Rate 16 18 Blood Pressure 130/72 120/61 Pulse Oximetry 96 94 Oxygen Delivery Method Room Air Room Air BMI result Body Mass Index 31.4 Labs 09/10/23 20:00 10/31/23 09:47 Labs: Laboratory Results - last 48 hr 10/30/23 10/30/23 10/30/23 08:39 12:50 17:43 Creatinine Estim Creat Clear Calc Estimated GFR POC Glucose 123 H 177 H 128 H 10/30/23 10/31/23 10/31/23 20:24 08:35 09:47 Creatinine 0.91 Estim Creat Clear Calc 100.3 Estimated GFR > 60 POC Glucose 189 H 122 H 10/31/23 10/31/23 10/31/23 11:45 12:45 17:52 Creatinine Estim Creat Clear Calc Estimated GFR POC Glucose 266 H 247 H 230 H 10/31/23 20:36 Creatinine Estim Creat Clear Calc Estimated GFR POC Glucose 219 H Imaging Radiology Impressions: ITS Impressions Brain MRI 09/19/23 20:33 IMPRESSION: 1. No demonstrated acute intracranial abnormalities. 2. Chronic mild to moderate nonspecific white matter changes, most notably in the deep white matter of the right frontal lobe. Mild to moderate generalized cerebral volume loss. Medications Medications Current Medications Acetaminophen (Acetaminophen 325 Mg Tablet) 650 mg PO Q6H PRN PRN Reason: Headache/Pain Mild Scale (1-3) Last Admin: 10/13/23 09:39 Dose: 650 mg Al Hydroxide/Mg Hydroxide (Magnesium Hydrox/Alum Hydrox 30 Ml Oral.Susp) 30 ml PO Q6H PRN PRN Reason: Heartburn/Nausea Aripiprazole (Aripiprazole 10 Mg Tablet) 10 mg PO BEDTIME [facility] Last Admin: 10/31/23 21:00 Dose: 10 mg Benztropine Mesylate (Benztropine Mesylate 0.5 Mg Tablet) 0.5 mg PO TID PRN PRN Reason: Extrapyramidal Effects Glucose (Glucose Gel 15 Gm Gel..Gram.) 15 gm PO Q15M PRN; Protocol PRN Reason: per Hypoglycemia Standing Ord. Hydroxyzine HCl (Hydroxyzine Hcl 25 Mg Tablet) 25 mg PO Q6H PRN PRN Reason: Anxiety Last Admin: 10/27/23 20:38 Dose: 25 mg Dextrose (D10) 250 mls @ 750 mls/hr IV Q15M PRN; Protocol PRN Reason: per Hypoglycemia Standing Ord. Insulin Glargine (Insulin Glargine,Hum.Rec.Anlog 100 Unit/Ml 10 Ml Vial) 20 unit SUBCUT BEDTIME [facility] Last Admin: 10/31/23 20:59 Dose: 20 unit Insulin Human Lispro (Insulin Lispro 100 Unit/Ml 3 Ml Vial) 0 unit SUBCUT QIDACHS [facility]; Protocol Last Admin: 10/31/23 20:59 Dose: 4 unit Lamotrigine (Lamotrigine 100 Mg Tablet) 100 mg PO BEDTIME [facility] Last Admin: 10/31/23 21:00 Dose: 100 mg Levothyroxine Sodium (Levothyroxine Sodium 200 Mcg Tablet) 200 mcg PO DAILY [facility] Last Admin: 10/31/23 08:40 Dose: 200 mcg Magnesium Hydroxide (Milk Of Magnesia 30 Ml Oral.Susp) 30 ml PO DAILY PRN PRN Reason: Constipation Memantine (Memantine Hcl 5 Mg Tablet) 5 mg PO BID [facility] Last Admin: 10/31/23 21:00 Dose: 5 mg Metformin HCl (Metformin Hcl Er 500 Mg Tab.Er.24h) 1,000 mg PO DAILY@1700 [facility] Last Admin: 10/31/23 17:23 Dose: 1,000 mg Nicotine Polacrilex (Nicotine Polacrilex 2 Mg Gum) 4 mg BUCCAL Q2H PRN PRN Reason: Nicotine Cravings Sertraline HCl (Sertraline Hcl 100 Mg Tablet) 100 mg PO DAILY [facility] Last Admin: 10/31/23 08:40 Dose: 100 mg Simethicone (Simethicone 80 Mg Tab.Chew) 80 mg PO QIDWMHS [facility] Last Admin: 10/31/23 21:00 Dose: 80 mg Trazodone HCl (Trazodone Hcl 50 Mg Tablet) 50 mg PO BEDTIME MRX1 PRN PRN Reason: Insomnia Last Admin: 10/27/23 20:38 Dose: 50 mg Allergies Allergies Allergy/AdvReac Type Severity Reaction Status Date / Time amoxicillin [AMOXICILLIN] Allergy Mild VOMITING/ABD Verified 09/10/23 19:44 PAIN Assessment & Plan Assessment & Plan (1) Schizoaffective disorder: Status: Acute Code(s): F25.9 - Schizoaffective disorder, unspecified (2) Hypothyroidism: Status: Acute Code(s): E03.9 - Hypothyroidism, unspecified (3) Type 2 diabetes mellitus: Status: Acute Code(s): E11.9 - Type 2 diabetes mellitus without complications Plan Patient is a 58 year old male with hx of Schizoaffective d/o and hypothyroid disorder/thyroid coma, stroke and brain aneurysm, who was brought to [facility] on a [address] 12 d/t disorganized behavior, concern for his memory impairment, medications noncompliance and poor ADLs. Plan: CV 15 minute safety checks Continue home medications: Haldol 10mg PO daily Synthroid 200mcg PO daily Obtain labs; A1C/POCs Obtain collateral from sister Obtain records from last hospitalization. MOCA Referral for [facility] services if patient is agreeable. encourage medication compliance;consider [facility]AS discharge planning 09/11: Elevated fasting blood sugar elevated hemoglobin A1c 9.2 med consult placed put in point of care needed will start metformin Would benefit from clarity over recent hospitalization what this were done details regarding treatment continue Haldol unclear if patient has Healthcare proxy his [place] was low slowed cognition with poor details in depth at times during blankly regarding making judgments Unclear if any of this relates to past coma or 2 hypothyroidism. He does seem more impaired than when last seen unclear when last imaging was. Continue Haldol sitter neuro indira involvement regarding diagnostic picture. Patient does remain paranoid blunted suspicious apathetic. He might benefit from longer-term placement if available and appropriate at a later time involved [facility] involvement would be quite helpful 09/12: cont haldol get records ? hcp ? start antidep unclear hx 09/13: Keeping to self. More talkative today. Pt concerned he will be transferred to [facility]. Pt stated, The paper I signed yesterday. Are you going to send me back to the last hospital? That place was horrible . Pt was educated he signed a release of information with Dr. Gonzalez to obtain records from [facility]. Pt was given a copy of the release he signed. Despite this, pt continues to be anxious about being transferred. Pt denies SI/HI/VH/AH. 09/14: Keeping to self. active on unit. showered. Pt reports feeling alright today; pt reports he is worried about where I'm going to go . Pt continues concerned he will be transferred to [facility]. Pt denies SI/HI/VH/AH. 09/15:Pt reports feeling alright today; pt continues to report he is worried about where I'm going to go . Responding with brief responses. Guarded. Observed standing in one place for a long period of time. Appears confused. Pt denies SI/HI/VH/AH. T/W spoke to patient's sister, Ros, with patients verbal consent. Ros reports concerns regarding patients ability to make decisions regarding his mental and physical health. She plans on contacting legal advice on obtaining guardianship of patient. 09/16:Patient's presents similar to yesterday's presentation. Responding with brief responses. Guarded. Observed standing in one place for a long period of time, when asked what he is doing, pt stated, I don't know . Pt reports he plans on contacting his sister today and try to convince her for me to stay there . Pt denies SI/HI/VH/AH. Continue current tx plan. 09/17: brief responses. Guarded. 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 Pt denies SI/HI/VH/AH. T/W and Dr. Gonzalez spoke to patient's sister, Ros. Ros stated being [facility] HCP and plans on finding document. She plans on coming to the hospital on Saturday to be present for [facility] intake. 09/22/2023: No changes 09/23/2023 Patient flat apathetic difficult insight and judgment his sister is healthcare proxy if needed patient is accepting medical treatment Referral to [facility] 09/24/23 Considers starting Haldol Decanoate patient is agreeable superficially difficulty with exec fx was seen [facility] 09/25/23 Pt seen in f/u mood flat dysphoric difficulty engaging in conversation preoccupied with thought he wont be living with family thing slowed apathetic no clear response with namenda ? some improvement inc lamictal start low dose sertraline inc lamictal ck tsh 09/26/2023 Start Abilify as augmentation with Haldol see if can be more stimulating regarding depressed mood apathetic limited engagement sertraline 50 mg Lamictal 25 b.i.d. referral to [facility] which would have structure unclear if patient can engage with this he remains quite depressed has delusional beliefs regarding housing and that things have been done he has repeatedly tried to reach out to his sister denies active SI needs much help dressing talking with others encouragement to eat severe thought blocking Abilify might be more stimulating than Haldol which can be more dulling 09/27/23 Abilify started sertraline Lamictal encouraged step-down to [facility] encourage reality orientation denies active SI 09/27: Continue current regimen and plans 09/28: Continue current regimen and plans. 09/30/2023 Referral to [facility] increase Abilify to 5 mg daily eventually try and taper Haldol sertraline 50 mg daily 10/01/2023 Increase Abilify to 10 mg lower Haldol to 7 mg continue sertraline and Lamictal 10/02/2023 Abilify increased to 10 mg continue to taper Haldol sertraline 100 mg Lamictal increased to 75 mg patient apathetic withdrawn difficulty with placement some paranoia continues difficulty with decision making at times. Not physically aggressive internally preoccupied seems somewhat improved with Abilify sertraline Continue discharge planning 10/03/2023 Patient somewhat blunted flat slowed thinking during the day times staring. Change Abilify to 10 mg at bedtime. Scheduled Haldol will lowered to 2.5 mg Continue sertraline 100 mg Namenda 5 b.i.d. 10/04/2023 . Haldol discontinued modafinil low-dose monitor for psychosis or agitation continue discharge planning 10/07/2023 May need to firm healthcare proxy calls have been placed to sister to try to help in discharge planning. Referrals made. Patient cooperative with care 10/08/2023 Pharmacy ordering Abilify maintain a increase modafinil 100 mg patient remains flat passive depressed some improvement noted no current paranoia noted continue discharge planning no current safe discharge plan 10/09/2023 Increase Lamictal 100 mg Abilify Maintena 400 mg hold modafinil unclear if was overly stimulating patient continues to present internally preoccupied. 10/10/23 Healthcare proxy invoked discharge planning continue Lamictal Abilify pending maintain a 10/11/2023 Healthcare proxy invoked new CV signed discharge planning. 10/11 keep same treatment 10/12 keep same treatment 10/14/2023 Continue plan of care Lamictal Abilify discharge planning sertraline 10/14: stable. continue current mgmt. 10/15: stable. continue current mgmt. 10/16: stable presentation. continue current mgmt. 10/17: as for yesterday. 10/18: no changes. 10/19: stabel, safe. no change. 10/20: no change in presentation. calm, cooperative. active on unit, social with select peers, attending groups. Pt reports feeling alright . denies SI/HI/VH/AH. Social work waiting to hear from possible placement location. Continue current tx plan. 10/21: continue current tx plan. awaiting placement. 10/22: calm, cooperative. active on unit, social with select peers, attending groups. Pt reports feeling good ; pt stated, I'm waiting to see where I'm going . denies SI/HI/VH/AH. Showered with encouragement. 10/23: continue current tx plan. 10/24: calm, cooperative. active on unit, social with select peers, attending groups. Pt reports feeling good ; pt stated, I just want a place to live . 10/25- likely at baseline for him- CTP 10/26 CTP likely needs placement 10/27: continue current tx plan. awaiting placement. 10/28: Similar to yesterday. No change in presentation. 10/29: Pt reports feeling good ;pt stated, just waiting for a place to live . denies any issues at this time. 10/30: calm, cooperative. active on unit, social with select peers, attending groups. Pt reports feeling worried about where I am going to live . denies any issues at this time. 10/21: no change in presentation. continue current tx plan. Patient educated on: diagnosis and medication risk/benefits Reason for continued inpatient stay Substantial Risk for: other (awaiting placement.) Time Spent With Patient Time: Total time managing care of this patient today _20___ minutes.
[2023-11-01] MEDS: Simethicone 80 MG TAB.CHEW PO ×4 (08:37→20:09)
[2023-11-01] MEDS: Sertraline HCL 100 MG TABLET PO (08:37)
[2023-11-01] MEDS: Levothyroxine Sodium 200 MCG TABLET PO (08:37)
[2023-11-01] MEDS: Memantine HCl 5 MG TABLET PO ×2 (08:37→20:08)
[2023-11-01 08:47] LABS: Glucose, Whole Blood 112 mg/dL (60-115)
[2023-11-01 13:01] LABS: Glucose, Whole Blood 125 mg/dL (60-115)
[2023-11-01] MEDS: metFORMIN HCl ER 500 MG TAB.ER.24H 1000 MG PO (16:20)
[2023-11-01 17:33] LABS: Glucose, Whole Blood 129 mg/dL (60-115)
[2023-11-01 20:01] VITALS: BP 150/84; PULSE 91; RESP 18; TEMP 37.2; O2SAT 96
[2023-11-01 20:01] LABS: Glucose, Whole Blood 193 mg/dL (60-115)
[2023-11-01] MEDS: Insulin Lispro 100 UNIT/ML 3 ML VIAL SUBCUT (20:08)
[2023-11-01] MEDS: lamoTRIgine 100 MG TABLET PO (20:08)
[2023-11-01] MEDS: traZODone HCL 50 MG TABLET PO (20:08)
[2023-11-01] MEDS: ARIPiprazole 10 MG TABLET PO (20:08)
[2023-11-01] MEDS: Insulin Glargine,Hum.rec.anlog 100 UNIT/ML 10 ML VIAL 20 UNIT SUBCUT (20:09)
[2023-11-02 07:45] VITALS: BP 132/67; PULSE 83; RESP 14; TEMP 36.9; O2SAT 96
[2023-11-02] MEDS: Simethicone 80 MG TAB.CHEW PO ×4 (08:39→20:07)
[2023-11-02] MEDS: Memantine HCl 5 MG TABLET PO ×2 (08:39→20:07)
[2023-11-02] MEDS: Sertraline HCL 100 MG TABLET PO (08:39)
[2023-11-02] MEDS: Levothyroxine Sodium 200 MCG TABLET PO (08:39)
[2023-11-02 08:53] LABS: Glucose, Whole Blood 112 mg/dL (60-115)
--- NOTE | 2023-11-02 09:06 | HO.PSYCHPN ---
Subjective Subjective Date of Service: 11/02/23 Reason For Visit: paranoia cognitive impairment Interim History: calm, cooperative. visible in milieu. social with select peers, attending groups. denies any issues at this time. Similar to yesterdays presentation. Review of Systems Review of Systems unremarkable Yes all other systems are reviewed and are negative Constitutional: Reports as per HPI Eyes: Reports as per HPI Reports as per HPI Cardiovascular: Reports as per HPI Respiratory: Reports as per HPI Gastrointestinal: Reports as per HPI Genitourinary: Reports as per HPI Musculoskeletal: Reports as per HPI Skin/Breast: Reports as per HPI Reports as per HPI Psychiatric: Reports as per HPI Endocrine: Reports as per HPI Hematologic/Lymphatic: Reports as per HPI Allergic/Immunologic: Reports as per HPI Mental Status Exam Mental Status Exam Narrative: The patient is dysphoric sad looking blunted poverty of content limited engagement slowed mentation. slowed mentation continues difficulty with discharge planning suspiciousness at signing releases At times some level of suspiciousness no overt aggression or marked paranoia difficulty at times understanding difficulty at times changing sets. Poverty of content no SI HI actively difficulty with decision-making impaired insight judgment Patient Appearance: Appropriate Patient Orientation: Person, Place and Situation Level of Consciousness: Awake Patient Behavior: Appropriate and Cooperative Mood Description: Calm Affect Description: Blunted Patient Cognition Impaired: Yes Ability to Follow Directions: Fair Speech Pattern: Clear and Soft-Spoken 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: Usp Impaired Diagnostics Vital Signs (24Hr): Vital Signs - 24 hr 11/01/23 20:01 11/02/23 07:45 Temperature 99.0 F 98.5 F Pulse Rate 91 83 Respiratory Rate 18 14 Blood Pressure 150/84 H 132/67 Pulse Oximetry 96 96 Oxygen Delivery Method Room Air Room Air BMI result Body Mass Index 31.4 Labs 09/10/23 20:00 10/31/23 09:47 Labs: Laboratory Results - last 48 hr 10/31/23 10/31/23 10/31/23 09:47 11:45 12:45 Creatinine 0.91 Estim Creat Clear Calc 100.3 Estimated GFR > 60 POC Glucose 266 H 247 H 10/31/23 10/31/23 11/01/23 17:52 20:36 08:42 Creatinine Estim Creat Clear Calc Estimated GFR POC Glucose 230 H 219 H 112 11/01/23 11/01/23 11/01/23 12:57 17:27 19:57 Creatinine Estim Creat Clear Calc Estimated GFR POC Glucose 125 H 129 H 193 H 11/02/23 08:41 Creatinine Estim Creat Clear Calc Estimated GFR POC Glucose 112 Imaging Radiology Impressions: ITS Impressions Brain MRI 09/19/23 20:33 IMPRESSION: 1. No demonstrated acute intracranial abnormalities. 2. Chronic mild to moderate nonspecific white matter changes, most notably in the deep white matter of the right frontal lobe. Mild to moderate generalized cerebral volume loss. Medications Medications Current Medications Acetaminophen (Acetaminophen 325 Mg Tablet) 650 mg PO Q6H PRN PRN Reason: Headache/Pain Mild Scale (1-3) Last Admin: 10/13/23 09:39 Dose: 650 mg Al Hydroxide/Mg Hydroxide (Magnesium Hydrox/Alum Hydrox 30 Ml Oral.Susp) 30 ml PO Q6H PRN PRN Reason: Heartburn/Nausea Aripiprazole (Aripiprazole 10 Mg Tablet) 10 mg PO BEDTIME [facility] Last Admin: 11/01/23 20:08 Dose: 10 mg Benztropine Mesylate (Benztropine Mesylate 0.5 Mg Tablet) 0.5 mg PO TID PRN PRN Reason: Extrapyramidal Effects Glucose (Glucose Gel 15 Gm Gel..Gram.) 15 gm PO Q15M PRN; Protocol PRN Reason: per Hypoglycemia Standing Ord. Hydroxyzine HCl (Hydroxyzine Hcl 25 Mg Tablet) 25 mg PO Q6H PRN PRN Reason: Anxiety Last Admin: 10/27/23 20:38 Dose: 25 mg Dextrose (D10) 250 mls @ 750 mls/hr IV Q15M PRN; Protocol PRN Reason: per Hypoglycemia Standing Ord. Insulin Glargine (Insulin Glargine,Hum.Rec.Anlog 100 Unit/Ml 10 Ml Vial) 20 unit SUBCUT BEDTIME [facility] Last Admin: 11/01/23 20:09 Dose: 20 unit Insulin Human Lispro (Insulin Lispro 100 Unit/Ml 3 Ml Vial) 0 unit SUBCUT QIDACHS [facility]; Protocol Last Admin: 11/02/23 08:52 Dose: Not Given Lamotrigine (Lamotrigine 100 Mg Tablet) 100 mg PO BEDTIME [facility] Last Admin: 11/01/23 20:08 Dose: 100 mg Levothyroxine Sodium (Levothyroxine Sodium 200 Mcg Tablet) 200 mcg PO DAILY [facility] Last Admin: 11/02/23 08:39 Dose: 200 mcg Magnesium Hydroxide (Milk Of Magnesia 30 Ml Oral.Susp) 30 ml PO DAILY PRN PRN Reason: Constipation Memantine (Memantine Hcl 5 Mg Tablet) 5 mg PO BID [facility] Last Admin: 11/02/23 08:39 Dose: 5 mg Metformin HCl (Metformin Hcl Er 500 Mg Tab.Er.24h) 1,000 mg PO DAILY@1700 [facility] Last Admin: 11/01/23 16:20 Dose: 1,000 mg Nicotine Polacrilex (Nicotine Polacrilex 2 Mg Gum) 4 mg BUCCAL Q2H PRN PRN Reason: Nicotine Cravings Sertraline HCl (Sertraline Hcl 100 Mg Tablet) 100 mg PO DAILY [facility] Last Admin: 11/02/23 08:39 Dose: 100 mg Simethicone (Simethicone 80 Mg Tab.Chew) 80 mg PO QIDWMHS [facility] Last Admin: 11/02/23 08:39 Dose: 80 mg Trazodone HCl (Trazodone Hcl 50 Mg Tablet) 50 mg PO BEDTIME MRX1 PRN PRN Reason: Insomnia Last Admin: 11/01/23 20:08 Dose: 50 mg Allergies Allergies Allergy/AdvReac Type Severity Reaction Status Date / Time amoxicillin [AMOXICILLIN] Allergy Mild VOMITING/ABD Verified 09/10/23 19:44 PAIN Assessment & Plan Assessment & Plan (1) Schizoaffective disorder: Status: Acute Code(s): F25.9 - Schizoaffective disorder, unspecified (2) Hypothyroidism: Status: Acute Code(s): E03.9 - Hypothyroidism, unspecified (3) Type 2 diabetes mellitus: Status: Acute Code(s): E11.9 - Type 2 diabetes mellitus without complications Plan Patient is a 58 year old male with hx of Schizoaffective d/o and hypothyroid disorder/thyroid coma, stroke and brain aneurysm, who was brought to [facility] on a [address] 12 d/t disorganized behavior, concern for his memory impairment, medications noncompliance and poor ADLs. Plan: CV 15 minute safety checks Continue home medications: Haldol 10mg PO daily Synthroid 200mcg PO daily Obtain labs; A1C/POCs Obtain collateral from sister Obtain records from last hospitalization. MOCA Referral for [facility] services if patient is agreeable. encourage medication compliance;consider VARGAS discharge planning 09/11: Elevated fasting blood sugar elevated hemoglobin A1c 9.2 med consult placed put in point of care needed will start metformin Would benefit from clarity over recent hospitalization what this were done details regarding treatment continue Haldol unclear if patient has Healthcare proxy his [place] was low slowed cognition with poor details in depth at times during blankly regarding making judgments Unclear if any of this relates to past coma or 2 hypothyroidism. He does seem more impaired than when last seen unclear when last imaging was. Continue Haldol sitter neuro indira involvement regarding diagnostic picture. Patient does remain paranoid blunted suspicious apathetic. He might benefit from longer-term placement if available and appropriate at a later time involved [facility] involvement would be quite helpful 09/12: cont haldol get records ? hcp ? start antidep unclear hx 09/13: Keeping to self. More talkative today. Pt concerned he will be transferred to [facility]. Pt stated, The paper I signed yesterday. Are you going to send me back to the last hospital? That place was horrible . Pt was educated he signed a release of information with Dr. Gonzalez to obtain records from [facility]. Pt was given a copy of the release he signed. Despite this, pt continues to be anxious about being transferred. Pt denies SI/HI/VH/AH. 09/14: Keeping to self. active on unit. showered. Pt reports feeling alright today; pt reports he is worried about where I'm going to go . Pt continues concerned he will be transferred to [facility]. Pt denies SI/HI/VH/AH. 09/15:Pt reports feeling alright today; pt continues to report he is worried about where I'm going to go . Responding with brief responses. Guarded. Observed standing in one place for a long period of time. Appears confused. Pt denies SI/HI/VH/AH. T/W spoke to patient's sister, Ros, with patients verbal consent. Ros reports concerns regarding patients ability to make decisions regarding his mental and physical health. She plans on contacting legal advice on obtaining guardianship of patient. 09/16:Patient's presents similar to yesterday's presentation. Responding with brief responses. Guarded. Observed standing in one place for a long period of time, when asked what he is doing, pt stated, I don't know . Pt reports he plans on contacting his sister today and try to convince her for me to stay there . Pt denies SI/HI/VH/AH. Continue current tx plan. 09/17: brief responses. Guarded. 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 Pt denies SI/HI/VH/AH. T/W and Dr. Gonzalez spoke to patient's sister, oRs. Ros stated being [facility] HCP and plans on finding document. She plans on coming to the hospital on Saturday to be present for [facility] intake. 09/22/2023: No changes 09/23/2023 Patient flat apathetic difficult insight and judgment his sister is healthcare proxy if needed patient is accepting medical treatment Referral to [facility] 09/24/23 Considers starting Haldol Decanoate patient is agreeable superficially difficulty with exec fx was seen [facility] 09/25/23 Pt seen in f/u mood flat dysphoric difficulty engaging in conversation preoccupied with thought he wont be living with family thing slowed apathetic no clear response with namenda ? some improvement inc lamictal start low dose sertraline inc lamictal ck tsh 09/26/2023 Start Abilify as augmentation with Haldol see if can be more stimulating regarding depressed mood apathetic limited engagement sertraline 50 mg Lamictal 25 b.i.d. referral to [facility] which would have structure unclear if patient can engage with this he remains quite depressed has delusional beliefs regarding housing and that things have been done he has repeatedly tried to reach out to his sister denies active SI needs much help dressing talking with others encouragement to eat severe thought blocking Abilify might be more stimulating than Haldol which can be more dulling 09/27/23 Abilify started sertraline Lamictal encouraged step-down to [facility] encourage reality orientation denies active SI 09/27: Continue current regimen and plans 09/28: Continue current regimen and plans. 09/30/2023 Referral to [facility] [place] increase Abilify to 5 mg daily eventually try and taper Haldol sertraline 50 mg daily 10/01/2023 Increase Abilify to 10 mg lower Haldol to 7 mg continue sertraline and Lamictal 10/02/2023 Abilify increased to 10 mg continue to taper Haldol sertraline 100 mg Lamictal increased to 75 mg patient apathetic withdrawn difficulty with placement some paranoia continues difficulty with decision making at times. Not physically aggressive internally preoccupied seems somewhat improved with Abilify sertraline Continue discharge planning 10/03/2023 Patient somewhat blunted flat slowed thinking during the day times staring. Change Abilify to 10 mg at bedtime. Scheduled Haldol will lowered to 2.5 mg Continue sertraline 100 mg Namenda 5 b.i.d. 10/04/2023 . Haldol discontinued modafinil low-dose monitor for psychosis or agitation continue discharge planning 10/07/2023 May need to firm healthcare proxy calls have been placed to sister to try to help in discharge planning. Referrals made. Patient cooperative with care 10/08/2023 Pharmacy ordering Abilify maintain a increase modafinil 100 mg patient remains flat passive depressed some improvement noted no current paranoia noted continue discharge planning no current safe discharge plan 10/09/2023 Increase Lamictal 100 mg Abilify Maintena 400 mg hold modafinil unclear if was overly stimulating patient continues to present internally preoccupied. 10/10/23 Healthcare proxy invoked discharge planning continue Lamictal Abilify pending maintain a 10/11/2023 Healthcare proxy invoked new CV signed discharge planning. 10/11 keep same treatment 10/12 keep same treatment 10/14/2023 Continue plan of care Lamictal Abilify discharge planning sertraline 10/14: stable. continue current mgmt. 10/15: stable. continue current mgmt. 10/16: stable presentation. continue current mgmt. 10/17: as for yesterday. 10/18: no changes. 10/19: stabel, safe. no change. 10/20: no change in presentation. calm, cooperative. active on unit, social with select peers, attending groups. Pt reports feeling alright . denies SI/HI/VH/AH. Social work waiting to hear from possible placement location. Continue current tx plan. 10/21: continue current tx plan. awaiting placement. 10/22: calm, cooperative. active on unit, social with select peers, attending groups. Pt reports feeling good ; pt stated, I'm waiting to see where I'm going . denies SI/HI/VH/AH. Showered with encouragement. 10/23: continue current tx plan. 10/24: calm, cooperative. active on unit, social with select peers, attending groups. Pt reports feeling good ; pt stated, I just want a place to live . 10/25- likely at baseline for him- CTP 10/26 CTP likely needs placement 10/27: continue current tx plan. awaiting placement. 10/28: Similar to yesterday. No change in presentation. 10/29: Pt reports feeling good ;pt stated, just waiting for a place to live . denies any issues at this time. 10/30: calm, cooperative. active on unit, social with select peers, attending groups. Pt reports feeling worried about where I am going to live . denies any issues at this time. 10/21: no change in presentation. continue current tx plan. 11/01: continue current management and treatment plan. Reason for continued inpatient stay Substantial Risk for: inability to function and rapid decompensation Time Spent With Patient Time: Total time managing care of this patient today ____ minutes.
[2023-11-02 12:51] LABS: Glucose, Whole Blood 198 mg/dL (60-115)
[2023-11-02] MEDS: Insulin Lispro 100 UNIT/ML 3 ML VIAL SUBCUT ×3 (12:59→20:08)
[2023-11-02] MEDS: metFORMIN HCl ER 500 MG TAB.ER.24H 1000 MG PO (17:08)
[2023-11-02 17:48] LABS: Glucose, Whole Blood 172 mg/dL (60-115)
[2023-11-02 18:14] VITALS: BP 118/62; PULSE 90; RESP 16; TEMP 36.9; O2SAT 97
[2023-11-02 19:56] LABS: Glucose, Whole Blood 195 mg/dL (60-115)
[2023-11-02] MEDS: traZODone HCL 50 MG TABLET PO ×2 (20:07→21:52)
[2023-11-02] MEDS: ARIPiprazole 10 MG TABLET PO (20:07)
[2023-11-02] MEDS: lamoTRIgine 100 MG TABLET PO (20:07)
[2023-11-02] MEDS: Insulin Glargine,Hum.rec.anlog 100 UNIT/ML 10 ML VIAL 20 UNIT SUBCUT (20:08)
[2023-11-03 07:57] VITALS: BP 126/67; PULSE 82; RESP 16; TEMP 36.8; O2SAT 98
[2023-11-03] MEDS: Memantine HCl 5 MG TABLET PO ×2 (08:18→20:41)
[2023-11-03] MEDS: Simethicone 80 MG TAB.CHEW PO ×4 (08:18→20:41)
[2023-11-03] MEDS: Levothyroxine Sodium 200 MCG TABLET PO (08:18)
[2023-11-03] MEDS: Sertraline HCL 100 MG TABLET PO (08:18)
[2023-11-03 08:49] LABS: Glucose, Whole Blood 113 mg/dL (60-115)
--- NOTE | 2023-11-03 11:38 | P.PNPSI_ITS ---
Subjective Subjective Date of Service: 11/03/23 Reason For Visit: paranoia cognitive impairment Interim History: calm, cooperative. visible in milieu. social with select peers, attending groups. denies any issues at this time. Similar to yesterdays presentation. Review of Systems Review of Systems unremarkable Yes all other systems are reviewed and are negative Constitutional: Reports as per HPI Eyes: Reports as per HPI Reports as per HPI Cardiovascular: Reports as per HPI Respiratory: Reports as per HPI Gastrointestinal: Reports as per HPI Genitourinary: Reports as per HPI Musculoskeletal: Reports as per HPI Skin/Breast: Reports as per HPI Reports as per HPI Psychiatric: Reports as per HPI Endocrine: Reports as per HPI Hematologic/Lymphatic: Reports as per HPI Allergic/Immunologic: Reports as per HPI Mental Status Exam Mental Status Exam Narrative: The patient is dysphoric sad looking blunted poverty of content limited engagement slowed mentation. slowed mentation continues difficulty with discharge planning suspiciousness at signing releases At times some level of suspiciousness no overt aggression or marked paranoia difficulty at times understanding difficulty at times changing sets. Poverty of content no SI HI actively difficulty with decision-making impaired insight judgment Patient Appearance: Appropriate Patient Orientation: Person, Place and Situation Level of Consciousness: Awake Patient Behavior: Appropriate and Cooperative Mood Description: Calm Affect Description: Blunted Patient Cognition Impaired: Yes Ability to Follow Directions: Fair Speech Pattern: Clear and Soft-Spoken 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: Usp Impaired Diagnostics Vital Signs (24Hr): Vital Signs - 24 hr 11/02/23 18:14 11/03/23 07:57 Temperature 98.4 F 98.2 F Pulse Rate 90 82 Respiratory Rate 16 16 Blood Pressure 118/62 126/67 Pulse Oximetry 97 98 Oxygen Delivery Method Room Air Room Air BMI result Body Mass Index 31.4 Labs 09/10/23 20:00 10/31/23 09:47 Labs: Laboratory Results - last 48 hr 11/01/23 11/01/23 11/01/23 12:57 17:27 19:57 POC Glucose 125 H 129 H 193 H 11/02/23 11/02/23 11/02/23 08:41 12:40 17:41 POC Glucose 112 198 H 172 H 11/02/23 11/03/23 19:51 08:41 POC Glucose 195 H 113 Imaging Radiology Impressions: ITS Impressions Brain MRI 09/19/23 20:33 IMPRESSION: 1. No demonstrated acute intracranial abnormalities. 2. Chronic mild to moderate nonspecific white matter changes, most notably in the deep white matter of the right frontal lobe. Mild to moderate generalized cerebral volume loss. Medications Medications Current Medications Acetaminophen (Acetaminophen 325 Mg Tablet) 650 mg PO Q6H PRN PRN Reason: Headache/Pain Mild Scale (1-3) Last Admin: 10/13/23 09:39 Dose: 650 mg Al Hydroxide/Mg Hydroxide (Magnesium Hydrox/Alum Hydrox 30 Ml Oral.Susp) 30 ml PO Q6H PRN PRN Reason: Heartburn/Nausea Aripiprazole (Aripiprazole 10 Mg Tablet) 10 mg PO BEDTIME [facility] Last Admin: 11/02/23 20:07 Dose: 10 mg Benztropine Mesylate (Benztropine Mesylate 0.5 Mg Tablet) 0.5 mg PO TID PRN PRN Reason: Extrapyramidal Effects Glucose (Glucose Gel 15 Gm Gel..Gram.) 15 gm PO Q15M PRN; Protocol PRN Reason: per Hypoglycemia Standing Ord. Hydroxyzine HCl (Hydroxyzine Hcl 25 Mg Tablet) 25 mg PO Q6H PRN PRN Reason: Anxiety Last Admin: 10/27/23 20:38 Dose: 25 mg Dextrose (D10) 250 mls @ 750 mls/hr IV Q15M PRN; Protocol PRN Reason: per Hypoglycemia Standing Ord. Insulin Glargine (Insulin Glargine,Hum.Rec.Anlog 100 Unit/Ml 10 Ml Vial) 20 unit SUBCUT BEDTIME [facility] Last Admin: 11/02/23 20:08 Dose: 20 unit Insulin Human Lispro (Insulin Lispro 100 Unit/Ml 3 Ml Vial) 0 unit SUBCUT QIDACHS [facility]; Protocol Last Admin: 11/03/23 08:55 Dose: Not Given Lamotrigine (Lamotrigine 100 Mg Tablet) 100 mg PO BEDTIME [facility] Last Admin: 11/02/23 20:07 Dose: 100 mg Levothyroxine Sodium (Levothyroxine Sodium 200 Mcg Tablet) 200 mcg PO DAILY [facility] Last Admin: 11/03/23 08:18 Dose: 200 mcg Magnesium Hydroxide (Milk Of Magnesia 30 Ml Oral.Susp) 30 ml PO DAILY PRN PRN Reason: Constipation Memantine (Memantine Hcl 5 Mg Tablet) 5 mg PO BID [facility] Last Admin: 11/03/23 08:18 Dose: 5 mg Metformin HCl (Metformin Hcl Er 500 Mg Tab.Er.24h) 1,000 mg PO DAILY@1700 [facility] Last Admin: 11/02/23 17:08 Dose: 1,000 mg Nicotine Polacrilex (Nicotine Polacrilex 2 Mg Gum) 4 mg BUCCAL Q2H PRN PRN Reason: Nicotine Cravings Sertraline HCl (Sertraline Hcl 100 Mg Tablet) 100 mg PO DAILY [facility] Last Admin: 11/03/23 08:18 Dose: 100 mg Simethicone (Simethicone 80 Mg Tab.Chew) 80 mg PO QIDWMHS [facility] Last Admin: 11/03/23 08:18 Dose: 80 mg Trazodone HCl (Trazodone Hcl 50 Mg Tablet) 50 mg PO BEDTIME MRX1 PRN PRN Reason: Insomnia Last Admin: 11/02/23 21:52 Dose: 50 mg Allergies Allergies Allergy/AdvReac Type Severity Reaction Status Date / Time amoxicillin [AMOXICILLIN] Allergy Mild VOMITING/ABD Verified 09/10/23 19:44 PAIN Assessment & Plan Assessment & Plan (1) Schizoaffective disorder: Status: Acute Code(s): F25.9 - Schizoaffective disorder, unspecified (2) Hypothyroidism: Status: Acute Code(s): E03.9 - Hypothyroidism, unspecified (3) Type 2 diabetes mellitus: Status: Acute Code(s): E11.9 - Type 2 diabetes mellitus without complications Plan Patient is a 58 year old male with hx of Schizoaffective d/o and hypothyroid disorder/thyroid coma, stroke and brain aneurysm, who was brought to [facility] ER on a [address] 12 d/t disorganized behavior, concern for his memory impairment, medications noncompliance and poor ADLs. Plan: CV 15 minute safety checks Continue home medications: Haldol 10mg PO daily Synthroid 200mcg PO daily Obtain labs; A1C/POCs Obtain collateral from sister Obtain records from last hospitalization. MOCA Referral for [facility] services if patient is agreeable. encourage medication compliance;consider VARGAS discharge planning 09/11: Elevated fasting blood sugar elevated hemoglobin A1c 9.2 med consult placed put in point of care needed will start metformin Would benefit from clarity over recent hospitalization what this were done details regarding treatment continue Haldol unclear if patient has Healthcare proxy his [place] was low slowed cognition with poor details in depth at times during blankly regarding making judgments Unclear if any of this relates to past coma or 2 hypothyroidism. He does seem more impaired than when last seen unclear when last imaging was. Continue Haldol [facility] involvement regarding diagnostic picture. Patient does remain paranoid blunted suspicious apathetic. He might benefit from longer- term placement if available and appropriate at a later time involved [facility] involvement would be quite helpful 09/12: cont haldol get records ? hcp ? start antidep unclear hx 09/13: Keeping to self. More talkative today. Pt concerned he will be transferred to [facility]. Pt stated, The paper I signed yesterday. Are you going to send me back to the last hospital? That place was horrible . Pt was educated he signed a release of information with Dr. Gonzalez to obtain records from [facility]. Pt was given a copy of the release he signed. Despite this, pt continues to be anxious about being transferred. Pt denies SI/HI/VH/AH. 09/14: Keeping to self. active on unit. showered. Pt reports feeling alright today; pt reports he is worried about where I'm going to go . Pt continues concerned he will be transferred to [facility]. Pt denies SI/HI/VH/AH. 09/15:Pt reports feeling alright today; pt continues to report he is worried about where I'm going to go . Responding with brief responses. Guarded. Observed standing in one place for a long period of time. Appears confused. Pt denies SI/HI/VH/AH. T/W spoke to patient's sister, Ros, with patients verbal consent. Ros reports concerns regarding patients ability to make decisions regarding his mental and physical health. She plans on contacting legal advice on obtaining guardianship of patient. 09/16:Patient's presents similar to yesterday's presentation. Responding with brief responses. Guarded. Observed standing in one place for a long period of time, when asked what he is doing, pt stated, I don't know . Pt reports he plans on contacting his sister today and try to convince her for me to stay there . Pt denies SI/HI/VH/AH. Continue current tx plan. 09/17: brief responses. Guarded. 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 Pt denies SI/HI/VH/AH. T/W and Dr. Gonzalez spoke to patient's sister, Ros. Ros stated being [facility] HCP and plans on finding document. She plans on coming to the hospital on Saturday to be present for [facility] intake. 09/22/2023: No changes 09/23/2023 Patient flat apathetic difficult insight and judgment his sister is healthcare proxy if needed patient is accepting medical treatment Referral to [facility] 09/24/23 Considers starting Haldol Decanoate patient is agreeable superficially difficulty with exec fx was seen [facility] 09/25/23 Pt seen in f/u mood flat dysphoric difficulty engaging in conversation preoccupied with thought he wont be living with family thing slowed apathetic no clear response with namenda ? some improvement inc lamictal start low dose sertraline inc lamictal ck tsh 09/26/2023 Start Abilify as augmentation with Haldol see if can be more stimulating regarding depressed mood apathetic limited engagement sertraline 50 mg Lamictal 25 b.i.d. referral to [facility] which would have structure unclear if patient can engage with this he remains quite depressed has delusional beliefs regarding housing and that things have been done he has repeatedly tried to reach out to his sister denies active SI needs much help dressing talking with others encouragement to eat severe thought blocking Abilify might be more stimulating than Haldol which can be more dulling 09/27/23 Abilify started sertraline Lamictal encouraged step-down to [facility] encourage reality orientation denies active SI 09/27: Continue current regimen and plans 09/28: Continue current regimen and plans. 09/30/2023 Referral to [facility] increase Abilify to 5 mg daily eventually try and taper Haldol sertraline 50 mg daily 10/01/2023 Increase Abilify to 10 mg lower Haldol to 7 mg continue sertraline and Lamictal 10/02/2023 Abilify increased to 10 mg continue to taper Haldol sertraline 100 mg Lamictal increased to 75 mg patient apathetic withdrawn difficulty with placement some paranoia continues difficulty with decision making at times. Not physically aggressive internally preoccupied seems somewhat improved with Abilify sertraline Continue discharge planning 10/03/2023 Patient somewhat blunted flat slowed thinking during the day times staring. Change Abilify to 10 mg at bedtime. Scheduled Haldol will lowered to 2.5 mg Continue sertraline 100 mg Namenda 5 b.i.d. 10/04/2023 . Haldol discontinued modafinil low-dose monitor for psychosis or agitation continue discharge planning 10/07/2023 May need to firm healthcare proxy calls have been placed to sister to try to help in discharge planning. Referrals made. Patient cooperative with care 10/08/2023 Pharmacy ordering Abilify maintain a increase modafinil 100 mg patient remains flat passive depressed some improvement noted no current paranoia noted continue discharge planning no current safe discharge plan 10/09/2023 Increase Lamictal 100 mg Abilify Maintena 400 mg hold modafinil unclear if was overly stimulating patient continues to present internally preoccupied. 10/10/23 Healthcare proxy invoked discharge planning continue Lamictal Abilify pending maintain a 10/11/2023 Healthcare proxy invoked new CV signed discharge planning. 10/11 keep same treatment 10/12 keep same treatment 10/14/2023 Continue plan of care Lamictal Abilify discharge planning sertraline 10/14: stable. continue current mgmt. 10/15: stable. continue current mgmt. 10/16: stable presentation. continue current mgmt. 10/17: as for yesterday. 10/18: no changes. 10/19: stabel, safe. no change. 10/20: no change in presentation. calm, cooperative. active on unit, social with select peers, attending groups. Pt reports feeling alright . denies SI/HI/VH/AH. Social work waiting to hear from possible placement location. Continue current tx plan. 10/21: continue current tx plan. awaiting placement. 10/22: calm, cooperative. active on unit, social with select peers, attending groups. Pt reports feeling good ; pt stated, I'm waiting to see where I'm going . denies SI/HI/VH/AH. Showered with encouragement. 10/23: continue current tx plan. 10/24: calm, cooperative. active on unit, social with select peers, attending groups. Pt reports feeling good ; pt stated, I just want a place to live . 10/25- likely at baseline for him- CTP 10/26 CTP likely needs placement 10/27: continue current tx plan. awaiting placement. 10/28: Similar to yesterday. No change in presentation. 10/29: Pt reports feeling good ;pt stated, just waiting for a place to live . denies any issues at this time. 10/30: calm, cooperative. active on unit, social with select peers, attending groups. Pt reports feeling worried about where I am going to live . denies any issues at this time. 10/21: no change in presentation. continue current tx plan. 11/01: continue current management and treatment plan. 11/02: Continue current management and treatment plan. Reason for continued inpatient stay Substantial Risk for: inability to function and rapid decompensation Time Spent With Patient Time: Total time managing care of this patient today ____ minutes.
[2023-11-03 12:39] LABS: Glucose, Whole Blood 256 mg/dL (60-115)
[2023-11-03] MEDS: Insulin Lispro 100 UNIT/ML 3 ML VIAL SUBCUT ×3 (12:39→20:43)
[2023-11-03 17:50] LABS: Glucose, Whole Blood 160 mg/dL (60-115)
[2023-11-03] MEDS: metFORMIN HCl ER 500 MG TAB.ER.24H 1000 MG PO (17:52)
[2023-11-03 19:30] VITALS: BP 125/70; PULSE 84; RESP 16; TEMP 37.2; O2SAT 98
[2023-11-03 20:34] LABS: Glucose, Whole Blood 263 mg/dL (60-115)
[2023-11-03] MEDS: lamoTRIgine 100 MG TABLET PO (20:41)
[2023-11-03] MEDS: ARIPiprazole 10 MG TABLET PO (20:41)
[2023-11-03] MEDS: Insulin Glargine,Hum.rec.anlog 100 UNIT/ML 10 ML VIAL 20 UNIT SUBCUT (20:42)
[2023-11-04 07:50] VITALS: BP 116/67; PULSE 88; RESP 16; TEMP 36.7; O2SAT 94
[2023-11-04] MEDS: Levothyroxine Sodium 200 MCG TABLET PO (08:46)
[2023-11-04] MEDS: Memantine HCl 5 MG TABLET PO ×2 (08:46→21:00)
[2023-11-04] MEDS: Simethicone 80 MG TAB.CHEW PO ×4 (08:46→21:00)
[2023-11-04] MEDS: Sertraline HCL 100 MG TABLET PO (08:47)
[2023-11-04 09:04] LABS: Glucose, Whole Blood 114 mg/dL (60-115)
--- NOTE | 2023-11-04 11:19 | HO.PSYCHPN ---
Subjective Subjective Date of Service: 11/04/23 Reason For Visit: paranoia cognitive impairment Interim History: calm, cooperative. visible in milieu. social with select peers, attending groups. denies any issues at this time. Similar to yesterdays presentation. Review of Systems Review of Systems unremarkable Yes all other systems are reviewed and are negative Constitutional: Reports as per HPI Eyes: Reports as per HPI Reports as per HPI Cardiovascular: Reports as per HPI Respiratory: Reports as per HPI Gastrointestinal: Reports as per HPI Genitourinary: Reports as per HPI Musculoskeletal: Reports as per HPI Skin/Breast: Reports as per HPI Reports as per HPI Psychiatric: Reports as per HPI Endocrine: Reports as per HPI Hematologic/Lymphatic: Reports as per HPI Allergic/Immunologic: Reports as per HPI Mental Status Exam Mental Status Exam Narrative: The patient is dysphoric sad looking blunted poverty of content limited engagement slowed mentation. slowed mentation continues difficulty with discharge planning suspiciousness at signing releases At times some level of suspiciousness no overt aggression or marked paranoia difficulty at times understanding difficulty at times changing sets. Poverty of content no SI HI actively difficulty with decision-making impaired insight judgment Patient Appearance: Appropriate Patient Orientation: Person, Place and Situation Level of Consciousness: Awake Patient Behavior: Appropriate and Cooperative Mood Description: Calm Affect Description: Blunted Patient Cognition Impaired: Yes Ability to Follow Directions: Fair Speech Pattern: Clear and Soft-Spoken 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: [facility] Impaired Diagnostics Vital Signs (24Hr): Vital Signs - 24 hr 11/03/23 19:30 11/04/23 07:50 Temperature 99 F 98.1 F Pulse Rate 84 88 Respiratory Rate 16 16 Blood Pressure 125/70 116/67 Pulse Oximetry 98 94 Oxygen Delivery Method Room Air Room Air BMI result Body Mass Index 31.4 Labs 09/10/23 20:00 10/31/23 09:47 Labs: Laboratory Results - last 48 hr 11/02/23 11/02/23 11/02/23 12:40 17:41 19:51 POC Glucose 198 H 172 H 195 H 11/03/23 11/03/23 11/03/23 08:41 12:34 17:47 POC Glucose 113 256 H 160 H 11/03/23 11/04/23 20:30 08:56 POC Glucose 263 H 114 Imaging Radiology Impressions: ITS Impressions Brain MRI 09/19/23 20:33 IMPRESSION: 1. No demonstrated acute intracranial abnormalities. 2. Chronic mild to moderate nonspecific white matter changes, most notably in the deep white matter of the right frontal lobe. Mild to moderate generalized cerebral volume loss. Medications Medications Current Medications Acetaminophen (Acetaminophen 325 Mg Tablet) 650 mg PO Q6H PRN PRN Reason: Headache/Pain Mild Scale (1-3) Last Admin: 10/13/23 09:39 Dose: 650 mg Al Hydroxide/Mg Hydroxide (Magnesium Hydrox/Alum Hydrox 30 Ml Oral.Susp) 30 ml PO Q6H PRN PRN Reason: Heartburn/Nausea Aripiprazole (Aripiprazole 10 Mg Tablet) 10 mg PO BEDTIME COUNTS INCLUDE 234 BEDS AT THE [facility] Last Admin: 11/03/23 20:41 Dose: 10 mg Benztropine Mesylate (Benztropine Mesylate 0.5 Mg Tablet) 0.5 mg PO TID PRN PRN Reason: Extrapyramidal Effects Glucose (Glucose Gel 15 Gm Gel..Gram.) 15 gm PO Q15M PRN; Protocol PRN Reason: per Hypoglycemia Standing Ord. Hydroxyzine HCl (Hydroxyzine Hcl 25 Mg Tablet) 25 mg PO Q6H PRN PRN Reason: Anxiety Last Admin: 10/27/23 20:38 Dose: 25 mg Dextrose (D10) 250 mls @ 750 mls/hr IV Q15M PRN; Protocol PRN Reason: per Hypoglycemia Standing Ord. Insulin Glargine (Insulin Glargine,Hum.Rec.Anlog 100 Unit/Ml 10 Ml Vial) 20 unit SUBCUT BEDTIME COUNTS INCLUDE 234 BEDS AT THE [facility] Last Admin: 11/03/23 20:42 Dose: 20 unit Insulin Human Lispro (Insulin Lispro 100 Unit/Ml 3 Ml Vial) 0 unit SUBCUT QIDACHS COUNTS INCLUDE 234 BEDS AT THE [facility]; Protocol Last Admin: 11/04/23 09:20 Dose: Not Given Lamotrigine (Lamotrigine 100 Mg Tablet) 100 mg PO BEDTIME COUNTS INCLUDE 234 BEDS AT THE [facility] Last Admin: 11/03/23 20:41 Dose: 100 mg Levothyroxine Sodium (Levothyroxine Sodium 200 Mcg Tablet) 200 mcg PO DAILY COUNTS INCLUDE 234 BEDS AT THE [facility] Last Admin: 11/04/23 08:46 Dose: 200 mcg Magnesium Hydroxide (Milk Of Magnesia 30 Ml Oral.Susp) 30 ml PO DAILY PRN PRN Reason: Constipation Memantine (Memantine Hcl 5 Mg Tablet) 5 mg PO BID COUNTS INCLUDE 234 BEDS AT THE [facility] Last Admin: 11/04/23 08:46 Dose: 5 mg Metformin HCl (Metformin Hcl Er 500 Mg Tab.Er.24h) 1,000 mg PO DAILY@1700 COUNTS INCLUDE 234 BEDS AT THE [facility] Last Admin: 11/03/23 17:52 Dose: 1,000 mg Nicotine Polacrilex (Nicotine Polacrilex 2 Mg Gum) 4 mg BUCCAL Q2H PRN PRN Reason: Nicotine Cravings Sertraline HCl (Sertraline Hcl 100 Mg Tablet) 100 mg PO DAILY COUNTS INCLUDE 234 BEDS AT THE [facility] Last Admin: 11/04/23 08:47 Dose: 100 mg Simethicone (Simethicone 80 Mg Tab.Chew) 80 mg PO QIDWMHS COUNTS INCLUDE 234 BEDS AT THE [facility] Last Admin: 11/04/23 08:46 Dose: 80 mg Trazodone HCl (Trazodone Hcl 50 Mg Tablet) 50 mg PO BEDTIME MRX1 PRN PRN Reason: Insomnia Last Admin: 11/02/23 21:52 Dose: 50 mg Allergies Allergies Allergy/AdvReac Type Severity Reaction Status Date / Time amoxicillin [AMOXICILLIN] Allergy Mild VOMITING/ABD Verified 09/10/23 19:44 PAIN Assessment & Plan Assessment & Plan (1) Schizoaffective disorder: Status: Acute Code(s): F25.9 - Schizoaffective disorder, unspecified (2) Hypothyroidism: Status: Acute Code(s): E03.9 - Hypothyroidism, unspecified (3) Type 2 diabetes mellitus: Status: Acute Code(s): E11.9 - Type 2 diabetes mellitus without complications Plan Patient is a 58 year old male with hx of Schizoaffective d/o and hypothyroid disorder/thyroid coma, stroke and brain aneurysm, who was brought [place] [facility] [place] a [address] d/t disorganized behavior, concern for his memory impairment, medications noncompliance and poor ADLs. Plan: CV 15 minute safety checks Continue home medications: Haldol 10mg PO daily Synthroid 200mcg PO daily Obtain labs; A1C/POCs Obtain collateral from sister Obtain records from last hospitalization. MOCA Referral for [facility] services if patient is agreeable. encourage medication compliance;consider VARGAS discharge planning 09/11: Elevated fasting blood sugar elevated hemoglobin A1c 9.2 med consult placed put in point of care needed will start metformin Would benefit from clarity over recent hospitalization what this were done details regarding treatment continue Haldol unclear if patient has Healthcare proxy his [place] was low slowed cognition with poor details in depth at times during blankly regarding making judgments Unclear if any of this relates to past coma or 2 hypothyroidism. He does seem more impaired than when last seen unclear when last imaging was. Continue Haldol [facility] involvement regarding diagnostic picture. Patient does remain paranoid blunted suspicious apathetic. He might benefit from longer-term placement if available and appropriate at a later time involved [facility] involvement would be quite helpful 09/12: cont haldol get records ? hcp ? start antidep unclear hx 09/13: Keeping to self. More talkative today. Pt concerned he will be transferred to [facility]. Pt stated, The paper I signed yesterday. Are you going to send me back to the last hospital? That place was horrible . Pt was educated he signed a release of information with Dr. Gonzalez to obtain records from [facility]. Pt was given a copy of the release he signed. Despite this, pt continues to be anxious about being transferred. Pt denies SI/HI/VH/AH. 09/14: Keeping to self. active on unit. showered. Pt reports feeling alright today; pt reports he is worried about where I'm going to go . Pt continues concerned he will be transferred to [facility]. Pt denies SI/HI/VH/AH. 09/15:Pt reports feeling alright today; pt continues to report he is worried about where I'm going to go . Responding with brief responses. Guarded. Observed standing in one place for a long period of time. Appears confused. Pt denies SI/HI/VH/AH. T/W spoke to patient's sister, Ros, with patients verbal consent. Ros reports concerns regarding patients ability to make decisions regarding his mental and physical health. She plans on contacting legal advice on obtaining guardianship of patient. 09/16:Patient's presents similar to yesterday's presentation. Responding with brief responses. Guarded. Observed standing in one place for a long period of time, when asked what he is doing, pt stated, I don't know . Pt reports he plans on contacting his sister today and try to convince her for me to stay there . Pt denies SI/HI/VH/AH. Continue current tx plan. 09/17: brief responses. Guarded. Continues to [employer] one place for a long period of time, when asked what he is doing, pt stated, I don't know . Pt denies SI/HI/VH/AH. T/W and Dr. Gonzalez spoke to patient's sister, Ros. Ros stated being [facility] HCP and plans on finding document. She plans on coming to the hospital on Saturday to be present for [facility] intake. 09/22/2023: No changes 09/23/2023 Patient flat apathetic difficult insight and judgment his sister is healthcare proxy if needed patient is accepting medical treatment Referral to [facility] 09/24/23 Considers starting Haldol Decanoate patient is agreeable superficially difficulty with exec fx was seen [facility] 09/25/23 Pt seen in f/u mood flat dysphoric difficulty engaging in conversation preoccupied with thought he wont be living with family thing slowed apathetic no clear response with namenda ? some improvement inc lamictal start low dose sertraline inc lamictal ck tsh 09/26/2023 Start Abilify as augmentation with Haldol see if can be more stimulating regarding depressed mood apathetic limited engagement sertraline 50 mg Lamictal 25 b.i.d. referral to [facility] which would have structure unclear if patient can engage with this he remains quite depressed has delusional beliefs regarding housing and that things have been done he has repeatedly tried to reach out to his sister denies active SI needs much help dressing talking with others encouragement to eat severe thought blocking Abilify might be more stimulating than Haldol which can be more dulling 09/27/23 Abilify started sertraline Lamictal encouraged step-down to [facility] encourage reality orientation denies active SI 09/27: Continue current regimen and plans 09/28: Continue current regimen and plans. 09/30/2023 Referral to [facility] increase Abilify to 5 mg daily eventually try and taper Haldol sertraline 50 mg daily 10/01/2023 Increase Abilify to 10 mg lower Haldol to 7 mg continue sertraline and Lamictal 10/02/2023 Abilify increased to 10 mg continue to taper Haldol sertraline 100 mg Lamictal increased to 75 mg patient apathetic withdrawn difficulty with placement some paranoia continues difficulty with decision making at times. Not physically aggressive internally preoccupied seems somewhat improved with Abilify sertraline Continue discharge planning 10/03/2023 Patient somewhat blunted flat slowed thinking during the day times staring. Change Abilify to 10 mg at bedtime. Scheduled Haldol will lowered to 2.5 mg Continue sertraline 100 mg Namenda 5 b.i.d. 10/04/2023 . Haldol discontinued modafinil low-dose monitor for psychosis or agitation continue discharge planning 10/07/2023 May need to firm healthcare proxy calls have been placed to sister to try to help in discharge planning. Referrals made. Patient cooperative with care 10/08/2023 Pharmacy ordering Abilify maintain a increase modafinil 100 mg patient remains flat passive depressed some improvement noted no current paranoia noted continue discharge planning no current safe discharge plan 10/09/2023 Increase Lamictal 100 mg Abilify Maintena 400 mg hold modafinil unclear if was overly stimulating patient continues to present internally preoccupied. 10/10/23 Healthcare proxy invoked discharge planning continue Lamictal Abilify pending maintain a 10/11/2023 Healthcare proxy invoked new CV signed discharge planning. 10/11 keep same treatment 10/12 keep same treatment 10/14/2023 Continue plan of care Lamictal Abilify discharge planning sertraline 10/14: stable. continue current mgmt. 10/15: stable. continue current mgmt. 10/16: stable presentation. continue current mgmt. 10/17: as for yesterday. 10/18: no changes. 10/19: stabel, safe. no change. 10/20: no change in presentation. calm, cooperative. active on unit, social with select peers, attending groups. Pt reports feeling alright . denies SI/HI/VH/AH. Social work waiting to hear from possible placement location. Continue current tx plan. 10/21: continue current tx plan. awaiting placement. 10/22: calm, cooperative. active on unit, social with select peers, attending groups. Pt reports feeling good ; pt stated, I'm waiting to see where I'm going . denies SI/HI/VH/AH. Showered with encouragement. 10/23: continue current tx plan. 10/24: calm, cooperative. active on unit, social with select peers, attending groups. Pt reports feeling good ; pt stated, I just want a place to live . 10/25- likely at baseline for him- CTP 10/26 CTP likely needs placement 10/27: continue current tx plan. awaiting placement. 10/28: Similar to yesterday. No change in presentation. 10/29: Pt reports feeling good ;pt stated, just waiting for a place to live . denies any issues at this time. 10/30: calm, cooperative. active on unit, social with select peers, attending groups. Pt reports feeling worried about where I am going to live . denies any issues at this time. 10/21: no change in presentation. continue current tx plan. 11/01: continue current management and treatment plan. 11/02: Continue current management and treatment plan. 11/03: Continue current management and treatment plan. Reason for continued inpatient stay Substantial Risk for: inability to function and rapid decompensation Time Spent With Patient Time: Total time managing care of this patient today ____ minutes.
[2023-11-04 12:55] LABS: Glucose, Whole Blood 217 mg/dL (60-115)
[2023-11-04] MEDS: Insulin Lispro 100 UNIT/ML 3 ML VIAL SUBCUT ×2 (13:03→21:02)
[2023-11-04] MEDS: metFORMIN HCl ER 500 MG TAB.ER.24H 1000 MG PO (16:37)
[2023-11-04 18:07] LABS: Glucose, Whole Blood 148 mg/dL (60-115)
[2023-11-04 19:45] VITALS: BP 130/72; PULSE 101; RESP 18; TEMP 36.8; O2SAT 96
[2023-11-04 19:56] LABS: Glucose, Whole Blood 174 mg/dL (60-115)
[2023-11-04] MEDS: lamoTRIgine 100 MG TABLET PO (21:00)
[2023-11-04] MEDS: ARIPiprazole 10 MG TABLET PO (21:00)
[2023-11-04] MEDS: Insulin Glargine,Hum.rec.anlog 100 UNIT/ML 10 ML VIAL 20 UNIT SUBCUT (21:01)
[2023-11-05 07:57] VITALS: BP 127/67; PULSE 84; RESP 14; TEMP 36.6; O2SAT 97
[2023-11-05 08:31] LABS: Glucose, Whole Blood 106 mg/dL (60-115)
[2023-11-05] MEDS: Levothyroxine Sodium 200 MCG TABLET PO (08:39)
[2023-11-05] MEDS: Simethicone 80 MG TAB.CHEW PO ×4 (08:39→20:47)
[2023-11-05] MEDS: Memantine HCl 5 MG TABLET PO ×2 (08:39→20:47)
[2023-11-05] MEDS: Sertraline HCL 100 MG TABLET PO (08:42)
--- NOTE | 2023-11-05 09:30 | P.PNPSI_ITS ---
Subjective Subjective Date of Service: 11/05/23 Reason For Visit: paranoia cognitive impairment Subjective Notes: Conditional Voluntary Interim History: Reviewed with Dr. Gonzalez. Active on unit. calm, cooperative. social with select peers, attending groups. denies any issues at this time. He reports sleeping well. Pt reports he would be interested in applying for [facility] services; social work aware. Medication Compliance: Yes Side effects from medications: No Attending Groups: Yes Review of Systems Constitutional: Reports as per HPI Eyes: Reports as per HPI Reports as per HPI Cardiovascular: Reports as per HPI Respiratory: Reports as per HPI Gastrointestinal: Reports as per HPI Genitourinary: Reports as per HPI Musculoskeletal: Reports as per HPI Skin/Breast: Reports as per HPI Reports as per HPI Psychiatric: Reports as per HPI Endocrine: Reports as per HPI Hematologic/Lymphatic: Reports as per HPI Allergic/Immunologic: Reports as per HPI Mental Status Exam Mental Status Exam Patient Appearance: Appropriate Patient Orientation: Person, Place and Situation Level of Consciousness: Awake Patient Behavior: Appropriate and Cooperative Mood Description: Calm Affect Description: Blunted Patient Cognition Impaired: Yes Ability to Follow Directions: Fair Speech Pattern: Clear and Soft-Spoken 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 Vital Signs (24Hr): Vital Signs - 24 hr 11/04/23 19:45 11/05/23 07:57 Temperature 98.2 F 97.8 F Pulse Rate 101 H 84 Respiratory Rate 18 14 Blood Pressure 130/72 127/67 Pulse Oximetry 96 97 Oxygen Delivery Method Room Air Room Air BMI result Body Mass Index 31.4 Labs 09/10/23 20:00 10/31/23 09:47 Labs: Laboratory Results - last 48 hr 11/03/23 11/03/23 11/03/23 12:34 17:47 20:30 POC Glucose 256 H 160 H 263 H 11/04/23 11/04/23 11/04/23 08:56 12:48 17:38 POC Glucose 114 217 H 148 H 11/04/23 11/05/23 19:50 08:23 POC Glucose 174 H 106 Imaging Radiology Impressions: ITS Impressions Brain MRI 09/19/23 20:33 IMPRESSION: 1. No demonstrated acute intracranial abnormalities. 2. Chronic mild to moderate nonspecific white matter changes, most notably in the deep white matter of the right frontal lobe. Mild to moderate generalized cerebral volume loss. Medications Medications Current Medications Acetaminophen (Acetaminophen 325 Mg Tablet) 650 mg PO Q6H PRN PRN Reason: Headache/Pain Mild Scale (1-3) Last Admin: 10/13/23 09:39 Dose: 650 mg Al Hydroxide/Mg Hydroxide (Magnesium Hydrox/Alum Hydrox 30 Ml Oral.Susp) 30 ml PO Q6H PRN PRN Reason: Heartburn/Nausea Aripiprazole (Aripiprazole 10 Mg Tablet) 10 mg PO BEDTIME [facility] Last Admin: 11/04/23 21:00 Dose: 10 mg Benztropine Mesylate (Benztropine Mesylate 0.5 Mg Tablet) 0.5 mg PO TID PRN PRN Reason: Extrapyramidal Effects Glucose (Glucose Gel 15 Gm Gel..Gram.) 15 gm PO Q15M PRN; Protocol PRN Reason: per Hypoglycemia Standing Ord. Hydroxyzine HCl (Hydroxyzine Hcl 25 Mg Tablet) 25 mg PO Q6H PRN PRN Reason: Anxiety Last Admin: 10/27/23 20:38 Dose: 25 mg Dextrose (D10) 250 mls @ 750 mls/hr IV Q15M PRN; Protocol PRN Reason: per Hypoglycemia Standing Ord. Insulin Glargine (Insulin Glargine,Hum.Rec.Anlog 100 Unit/Ml 10 Ml Vial) 20 unit SUBCUT BEDTIME [facility] Last Admin: 11/04/23 21:01 Dose: 20 unit Insulin Human Lispro (Insulin Lispro 100 Unit/Ml 3 Ml Vial) 0 unit SUBCUT QIDACHS [facility]; Protocol Last Admin: 11/05/23 08:27 Dose: Not Given Lamotrigine (Lamotrigine 100 Mg Tablet) 100 mg PO BEDTIME [facility] Last Admin: 11/04/23 21:00 Dose: 100 mg Levothyroxine Sodium (Levothyroxine Sodium 200 Mcg Tablet) 200 mcg PO DAILY [facility] Last Admin: 11/05/23 08:39 Dose: 200 mcg Magnesium Hydroxide (Milk Of Magnesia 30 Ml Oral.Susp) 30 ml PO DAILY PRN PRN Reason: Constipation Memantine (Memantine Hcl 5 Mg Tablet) 5 mg PO BID [facility] Last Admin: 11/05/23 08:39 Dose: 5 mg Metformin HCl (Metformin Hcl Er 500 Mg Tab.Er.24h) 1,000 mg PO DAILY@1700 [facility] Last Admin: 11/04/23 16:37 Dose: 1,000 mg Nicotine Polacrilex (Nicotine Polacrilex 2 Mg Gum) 4 mg BUCCAL Q2H PRN PRN Reason: Nicotine Cravings Sertraline HCl (Sertraline Hcl 100 Mg Tablet) 100 mg PO DAILY [facility] Last Admin: 11/05/23 08:42 Dose: 100 mg Simethicone (Simethicone 80 Mg Tab.Chew) 80 mg PO QIDWMHS [facility] Last Admin: 11/05/23 08:39 Dose: 80 mg Trazodone HCl (Trazodone Hcl 50 Mg Tablet) 50 mg PO BEDTIME MRX1 PRN PRN Reason: Insomnia Last Admin: 11/02/23 21:52 Dose: 50 mg Allergies Allergies Allergy/AdvReac Type Severity Reaction Status Date / Time amoxicillin [AMOXICILLIN] Allergy Mild VOMITING/ABD Verified 09/10/23 19:44 PAIN Assessment & Plan Assessment & Plan (1) Schizoaffective disorder: Status: Acute Code(s): F25.9 - Schizoaffective disorder, unspecified (2) Hypothyroidism: Status: Acute Code(s): E03.9 - Hypothyroidism, unspecified (3) Type 2 diabetes mellitus: Status: Acute Code(s): E11.9 - Type 2 diabetes mellitus without complications Plan Patient is a 58 year old male with hx of Schizoaffective d/o and hypothyroid disorder/thyroid coma, stroke and brain aneurysm, who was brought to [facility] on a [address] d/t disorganized behavior, concern for his memory impairment, medications noncompliance and poor ADLs. Plan: CV 15 minute safety checks Continue home medications: Haldol 10mg PO daily Synthroid 200mcg PO daily Obtain labs; A1C/POCs Obtain collateral from sister Obtain records from last hospitalization. MOCA Referral for [facility] services if patient is agreeable. encourage medication compliance;consider VARGAS discharge planning 09/11: Elevated fasting blood sugar elevated hemoglobin A1c 9.2 med consult placed put in point of care needed will start metformin Would benefit from clarity over recent hospitalization what this were done details regarding treatment continue Haldol unclear if patient has Healthcare proxy his [place] was low slowed cognition with poor details in depth at times during blankly regarding making judgments Unclear if any of this relates to past coma or 2 hypothyroidism. He does seem more impaired than when last seen unclear when last imaging was. Continue Haldol sitter neuro indira involvement regarding diagnostic picture. Patient does remain paranoid blunted suspicious apathetic. He might benefit from longer- term placement if available and appropriate at a later time involved H involvement would be quite helpful 09/12: cont haldol get records ? hcp ? start antidep unclear hx 09/13: Keeping to self. More talkative today. Pt concerned he will be transferred to [facility]. Pt stated, The paper I signed yesterday. Are you going to send me back to the last hospital? That place was horrible . Pt was educated he signed a release of information with Dr. Gonzalez to obtain records from [facility]. Pt was given a copy of the release he signed. Despite this, pt continues to be anxious about being transferred. Pt denies SI/HI/VH/AH. 09/14: Keeping to self. active on unit. showered. Pt reports feeling alright today; pt reports he is worried about where I'm going to go . Pt continues concerned he will be transferred to [facility]. Pt denies SI/HI/VH/AH. 09/15:Pt reports feeling alright today; pt continues to report he is worried about where I'm going to go . Responding with brief responses. Guarded. Observed standing in one place for a long period of time. Appears confused. Pt denies SI/HI/VH/AH. T/W spoke to patient's sister, Ros, with patients verbal consent. Ros reports concerns regarding patients ability to make decisions regarding his mental and physical health. She plans on contacting legal advice on obtaining guardianship of patient. 09/16:Patient's presents similar to yesterday's presentation. Responding with brief responses. Guarded. Observed standing in one place for a long period of time, when asked what he is doing, pt stated, I don't know . Pt reports he plans on contacting his sister today and try to convince her for me to stay there . Pt denies SI/HI/VH/AH. Continue current tx plan. 09/17: brief responses. Guarded. 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 Pt denies SI/HI/VH/AH. T/W and Dr. Gonzalez spoke to patient's sister, Ros. Ros stated being [facility] HCP and plans on finding document. She plans on coming to the hospital on Saturday to be present for [facility] intake. 09/21: No changes 09/22:Patient flat apathetic difficult insight and judgment his sister is healthcare proxy if needed patient is accepting medical treatment Referral to [facility] 09/23:Considers starting Haldol Decanoate patient is agreeable superficially difficulty with exec fx was seen [facility] 09/24:Pt seen in f/u mood flat dysphoric difficulty engaging in conversation preoccupied with thought he wont be living with family thing slowed apathetic no clear response with namenda ? some improvement inc lamictal start low dose sertraline inc lamictal ck tsh 09/25:Start Abilify as augmentation with Haldol see if can be more stimulating regarding depressed mood apathetic limited engagement sertraline 50 mg Lamictal 25 b.i.d. referral to [facility] which would have structure unclear if patient can engage with this he remains quite depressed has delusional beliefs regarding housing and that things have been done he has repeatedly tried to reach out to his sister denies active SI needs much help dressing talking with others encouragement to eat severe thought blocking Abilify might be more stimulating than Haldol which can be more dulling 09/26:Abilify started sertraline Lamictal encouraged step-down to [facility] encourage reality orientation denies active SI 09/27: Continue current regimen and plans 09/28: Continue current regimen and plans. 09/29: [facility] increase Abilify to 5 mg daily eventually try and taper Haldol sertraline 50 mg daily 09/30:Increase Abilify to 10 mg lower Haldol to 7 mg continue sertraline and Lamictal 10/01:Abilify increased to 10 mg continue to taper Haldol sertraline 100 mg Lamictal increased to 75 mg patient apathetic withdrawn difficulty with placement some paranoia continues difficulty with decision making at times. Not physically aggressive internally preoccupied seems somewhat improved with Abilify sertraline Continue discharge planning 10/02:Patient somewhat blunted flat slowed thinking during the day times staring. Change Abilify to 10 mg at bedtime. Scheduled Haldol will lowered to 2.5 mg Continue sertraline 100 mg Namenda 5 b.i.d. 10/03:Haldol discontinued modafinil low-dose monitor for psychosis or agitation continue discharge planning 10/06: May need to firm healthcare proxy calls have been placed to sister to try to help in discharge planning. Referrals made. Patient cooperative with care 10/07:Pharmacy ordering Abilify maintain a increase modafinil 100 mg patient remains flat passive depressed some improvement noted no current paranoia noted continue discharge planning no current safe discharge plan 10/08: Increase Lamictal 100 mg Abilify Maintena 400 mg hold modafinil unclear if was overly stimulating patient continues to present internally preoccupied. 10/09:Healthcare proxy invoked discharge planning continue Lamictal Abilify pending maintain a 10/10:Healthcare proxy invoked new CV signed discharge planning. 10/11 keep same treatment 10/12 keep same treatment 10/13: Continue plan of care Lamictal Abilify discharge planning sertraline 10/14: stable. continue current mgmt. 10/15: stable. continue current mgmt. 10/16: stable presentation. continue current mgmt. 10/17: as for yesterday. 10/18: no changes. 10/19: stabel, safe. no change. 10/20: no change in presentation. calm, cooperative. active on unit, social with select peers, attending groups. Pt reports feeling alright . denies SI/HI/VH/AH. Social work waiting to hear from possible placement location. Continue current tx plan. 10/21: continue current tx plan. awaiting placement. 10/22: calm, cooperative. active on unit, social with select peers, attending groups. Pt reports feeling good ; pt stated, I'm waiting to see where I'm going . denies SI/HI/VH/AH. Showered with encouragement. 10/23: continue current tx plan. 10/24: calm, cooperative. active on unit, social with select peers, attending groups. Pt reports feeling good ; pt stated, I just want a place to live . 10/25- likely at baseline for him- CTP 10/26 CTP likely needs placement 10/27: continue current tx plan. awaiting placement. 10/28: Similar to yesterday. No change in presentation. 10/29: Pt reports feeling good ;pt stated, just waiting for a place to live . denies any issues at this time. 10/30: calm, cooperative. active on unit, social with select peers, attending groups. Pt reports feeling worried about where I am going to live . denies any issues at this time. 10/21: no change in presentation. continue current tx plan. 11/01: continue current management and treatment plan. 11/02: Continue current management and treatment plan. 11/03: Continue current management and treatment plan. 11/04: Active on unit. calm, cooperative. social with select peers, attending groups. denies any issues at this time. He reports sleeping well. Pt reports he would be interested in applying for [facility] services; social work aware. Patient educated on: diagnosis and medication risk/benefits Reason for continued inpatient stay Substantial Risk for: other (awaiting placement.) Time Spent With Patient Time: Total time managing care of this patient today _20___ minutes.
[2023-11-05 12:52] LABS: Glucose, Whole Blood 235 mg/dL (60-115)
[2023-11-05] MEDS: Insulin Lispro 100 UNIT/ML 3 ML VIAL SUBCUT ×2 (13:02→20:48)
[2023-11-05 17:58] LABS: Glucose, Whole Blood 141 mg/dL (60-115)
[2023-11-05] MEDS: metFORMIN HCl ER 500 MG TAB.ER.24H 1000 MG PO (18:14)
[2023-11-05 19:45] VITALS: BP 134/83; PULSE 95; RESP 16; TEMP 37.4; O2SAT 97
[2023-11-05 20:34] LABS: Glucose, Whole Blood 202 mg/dL (60-115)
[2023-11-05] MEDS: lamoTRIgine 100 MG TABLET PO (20:47)
[2023-11-05] MEDS: ARIPiprazole 10 MG TABLET PO (20:47)
[2023-11-05] MEDS: Insulin Glargine,Hum.rec.anlog 100 UNIT/ML 10 ML VIAL 20 UNIT SUBCUT (20:49)
[2023-11-06 08:00] VITALS: BP 133/76; PULSE 82; RESP 16; TEMP 36.3; O2SAT 96
[2023-11-06] MEDS: Memantine HCl 5 MG TABLET PO ×2 (08:24→20:20)
[2023-11-06] MEDS: Sertraline HCL 100 MG TABLET PO (08:24)
[2023-11-06] MEDS: Simethicone 80 MG TAB.CHEW PO ×4 (08:24→20:20)
[2023-11-06] MEDS: Levothyroxine Sodium 200 MCG TABLET PO (08:24)
[2023-11-06 08:31] LABS: Glucose, Whole Blood 117 mg/dL (60-115)
--- NOTE | 2023-11-06 09:55 | P.PNPSI_ITS ---
Subjective Subjective Date of Service: 11/06/23 Reason For Visit: paranoia cognitive impairment Subjective Notes: Conditional Voluntary Interim History: Reviewed with Dr. Gonzalez. Active on unit. calm, cooperative. social with select peers, attending groups. denies any issues at this time. Pt reports feeling okay ; he reports anxiety regarding placement. Medication Compliance: Yes Side effects from medications: No Attending Groups: Yes Review of Systems Constitutional: Reports as per HPI Eyes: Reports as per HPI Reports as per HPI Cardiovascular: Reports as per HPI Respiratory: Reports as per HPI Gastrointestinal: Reports as per HPI Genitourinary: Reports as per HPI Musculoskeletal: Reports as per HPI Skin/Breast: Reports as per HPI Reports as per HPI Psychiatric: Reports as per HPI Endocrine: Reports as per HPI Hematologic/Lymphatic: Reports as per HPI Allergic/Immunologic: Reports as per HPI Mental Status Exam Mental Status Exam Patient Appearance: Appropriate Patient Orientation: Person, Place and Situation Level of Consciousness: Awake Patient Behavior: Appropriate and Cooperative Mood Description: Calm Affect Description: Blunted Patient Cognition Impaired: Yes Ability to Follow Directions: Fair Speech Pattern: Clear and Soft-Spoken 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: Long-Term Impaired Diagnostics Vital Signs (24Hr): Vital Signs - 24 hr 11/05/23 19:45 11/06/23 08:00 Temperature 99.3 F 97.4 F Pulse Rate 95 82 Respiratory Rate 16 16 Blood Pressure 134/83 133/76 Pulse Oximetry 97 96 Oxygen Delivery Method Room Air Room Air BMI result Body Mass Index 31.4 Labs 09/10/23 20:00 10/31/23 09:47 Labs: Laboratory Results - last 48 hr 11/04/23 11/04/23 11/04/23 12:48 17:38 19:50 POC Glucose 217 H 148 H 174 H 11/05/23 11/05/23 11/05/23 08:23 12:40 17:52 POC Glucose 106 235 H 141 H 11/05/23 11/06/23 20:29 08:25 POC Glucose 202 H 117 H Imaging Radiology Impressions: ITS Impressions Brain MRI 09/19/23 20:33 IMPRESSION: 1. No demonstrated acute intracranial abnormalities. 2. Chronic mild to moderate nonspecific white matter changes, most notably in the deep white matter of the right frontal lobe. Mild to moderate generalized cerebral volume loss. Medications Medications Current Medications Acetaminophen (Acetaminophen 325 Mg Tablet) 650 mg PO Q6H PRN PRN Reason: Headache/Pain Mild Scale (1-3) Last Admin: 10/13/23 09:39 Dose: 650 mg Al Hydroxide/Mg Hydroxide (Magnesium Hydrox/Alum Hydrox 30 Ml Oral.Susp) 30 ml PO Q6H PRN PRN Reason: Heartburn/Nausea Aripiprazole (Aripiprazole 10 Mg Tablet) 10 mg PO BEDTIME [facility] Last Admin: 11/05/23 20:47 Dose: 10 mg Benztropine Mesylate (Benztropine Mesylate 0.5 Mg Tablet) 0.5 mg PO TID PRN PRN Reason: Extrapyramidal Effects Glucose (Glucose Gel 15 Gm Gel..Gram.) 15 gm PO Q15M PRN; Protocol PRN Reason: per Hypoglycemia Standing Ord. Hydroxyzine HCl (Hydroxyzine Hcl 25 Mg Tablet) 25 mg PO Q6H PRN PRN Reason: Anxiety Last Admin: 10/27/23 20:38 Dose: 25 mg Dextrose (D10) 250 mls @ 750 mls/hr IV Q15M PRN; Protocol PRN Reason: per Hypoglycemia Standing Ord. Insulin Glargine (Insulin Glargine,Hum.Rec.Anlog 100 Unit/Ml 10 Ml Vial) 20 unit SUBCUT BEDTIME [facility] Last Admin: 11/05/23 20:49 Dose: 20 unit Insulin Human Lispro (Insulin Lispro 100 Unit/Ml 3 Ml Vial) 0 unit SUBCUT QIDACHS [facility]; Protocol Last Admin: 11/06/23 08:48 Dose: Not Given Lamotrigine (Lamotrigine 100 Mg Tablet) 100 mg PO BEDTIME [facility] Last Admin: 11/05/23 20:47 Dose: 100 mg Levothyroxine Sodium (Levothyroxine Sodium 200 Mcg Tablet) 200 mcg PO DAILY [facility] Last Admin: 11/06/23 08:24 Dose: 200 mcg Magnesium Hydroxide (Milk Of Magnesia 30 Ml Oral.Susp) 30 ml PO DAILY PRN PRN Reason: Constipation Memantine (Memantine Hcl 5 Mg Tablet) 5 mg PO BID [facility] Last Admin: 11/06/23 08:24 Dose: 5 mg Metformin HCl (Metformin Hcl Er 500 Mg Tab.Er.24h) 1,000 mg PO DAILY@1700 [facility] Last Admin: 11/05/23 18:14 Dose: 1,000 mg Nicotine Polacrilex (Nicotine Polacrilex 2 Mg Gum) 4 mg BUCCAL Q2H PRN PRN Reason: Nicotine Cravings Sertraline HCl (Sertraline Hcl 100 Mg Tablet) 100 mg PO DAILY [facility] Last Admin: 11/06/23 08:24 Dose: 100 mg Simethicone (Simethicone 80 Mg Tab.Chew) 80 mg PO QIDWMHS [facility] Last Admin: 11/06/23 08:24 Dose: 80 mg Trazodone HCl (Trazodone Hcl 50 Mg Tablet) 50 mg PO BEDTIME MRX1 PRN PRN Reason: Insomnia Last Admin: 11/02/23 21:52 Dose: 50 mg Allergies Allergies Allergy/AdvReac Type Severity Reaction Status Date / Time amoxicillin [AMOXICILLIN] Allergy Mild VOMITING/ABD Verified 09/10/23 19:44 PAIN Assessment & Plan Assessment & Plan (1) Schizoaffective disorder: Status: Acute Code(s): F25.9 - Schizoaffective disorder, unspecified (2) Hypothyroidism: Status: Acute Code(s): E03.9 - Hypothyroidism, unspecified (3) Type 2 diabetes mellitus: Status: Acute Code(s): E11.9 - Type 2 diabetes mellitus without complications Plan Patient is a 58 year old male with hx of Schizoaffective d/o and hypothyroid disorder/thyroid coma, stroke and brain aneurysm, who was brought to [facility] on a [address] 12 d/t disorganized behavior, concern for his memory impairment, medications noncompliance and poor ADLs. Plan: CV 15 minute safety checks Continue home medications: Haldol 10mg PO daily Synthroid 200mcg PO daily Obtain labs; A1C/POCs Obtain collateral from sister Obtain records from last hospitalization. MOCA Referral for [facility] services if patient is agreeable. encourage medication compliance;consider VARGAS discharge planning 09/11: Elevated fasting blood sugar elevated hemoglobin A1c 9.2 med consult placed put in point of care needed will start metformin Would benefit from clarity over recent hospitalization what this were done details regarding treatment continue Haldol unclear if patient has Healthcare proxy his [place] was low slowed cognition with poor details in depth at times during blankly regarding making judgments Unclear if any of this relates to past coma or 2 hypothyroidism. He does seem more impaired than when last seen unclear when last imaging was. Continue Haldol sitter neuro indira involvement regarding diagnostic picture. Patient does remain paranoid blunted suspicious apathetic. He might benefit from longer- term placement if available and appropriate at a later time involved [facility] involvement would be quite helpful 09/12: cont haldol get records ? hcp ? start antidep unclear hx 09/13: Keeping to self. More talkative today. Pt concerned he will be transferred to [facility]. Pt stated, The paper I signed yesterday. Are you going to send me back to the last hospital? That place was horrible . Pt was educated he signed a release of information with Dr. Gonzalez to obtain records from [facility]. Pt was given a copy of the release he signed. Despite this, pt continues to be anxious about being transferred. Pt denies SI/HI/VH/AH. 09/14: Keeping to self. active on unit. showered. Pt reports feeling alright today; pt reports he is worried about where I'm going to go . Pt continues concerned he will be transferred to [facility]. Pt denies SI/HI/VH/AH. 09/15:Pt reports feeling alright today; pt continues to report he is worried about where I'm going to go . Responding with brief responses. Guarded. Observed standing in one place for a long period of time. Appears confused. Pt denies SI/HI/VH/AH. T/W spoke to patient's sister, Ros, with patients verbal consent. Ros reports concerns regarding patients ability to make decisions regarding his mental and physical health. She plans on contacting legal advice on obtaining guardianship of patient. 09/16:Patient's presents similar to yesterday's presentation. Responding with brief responses. Guarded. Observed standing in one place for a long period of time, when asked what he is doing, pt stated, I don't know . Pt reports he plans on contacting his sister today and try to convince her for me to stay there . Pt denies SI/HI/VH/AH. Continue current tx plan. 09/17: brief responses. Guarded. 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 Pt denies SI/HI/VH/AH. T/W and Dr. Gonzalez spoke to patient's sister, Ros. Ros stated being [facility] HCP and plans on finding document. She plans on coming to the hospital on Saturday to be present for [facility] intake. 09/21: No changes 09/22:Patient flat apathetic difficult insight and judgment his sister is healthcare proxy if needed patient is accepting medical treatment Referral to [facility] 09/23:Considers starting Haldol Decanoate patient is agreeable superficially difficulty with exec fx was seen [facility] 09/24:Pt seen in f/u mood flat dysphoric difficulty engaging in conversation preoccupied with thought he wont be living with family thing slowed apathetic no clear response with namenda ? some improvement inc lamictal start low dose sertraline inc lamictal ck tsh 09/25:Start Abilify as augmentation with Haldol see if can be more stimulating regarding depressed mood apathetic limited engagement sertraline 50 mg Lamictal 25 b.i.d. referral to [facility] which would have structure unclear if patient can engage with this he remains quite depressed has delusional beliefs regarding housing and that things have been done he has repeatedly tried to reach out to his sister denies active SI needs much help dressing talking with others encouragement to eat severe thought blocking Abilify might be more stimulating than Haldol which can be more dulling 09/26:Abilify started sertraline Lamictal encouraged [facility] reality orientation denies active SI 09/27: Continue current regimen and plans 09/28: Continue current regimen and plans. 09/29: Referral to [facility] Salty increase Abilify to 5 mg daily eventually try and taper Haldol sertraline 50 mg daily 09/30:Increase Abilify to 10 mg lower Haldol to 7 mg continue sertraline and Lamictal 10/01:Abilify increased to 10 mg continue to taper Haldol sertraline 100 mg Lamictal increased to 75 mg patient apathetic withdrawn difficulty with placement some paranoia continues difficulty with decision making at times. Not physically aggressive internally preoccupied seems somewhat improved with Abilify sertraline Continue discharge planning 10/02:Patient somewhat blunted flat slowed thinking during the day times staring. Change Abilify to 10 mg at bedtime. Scheduled Haldol will lowered to 2.5 mg Continue sertraline 100 mg Namenda 5 b.i.d. 10/03:Haldol discontinued modafinil low-dose monitor for psychosis or agitation continue discharge planning 10/06: May need to firm healthcare proxy calls have been placed to sister to try to help in discharge planning. Referrals made. Patient cooperative with care 10/07:Pharmacy ordering Abilify maintain a increase modafinil 100 mg patient remains flat passive depressed some improvement noted no current paranoia noted continue discharge planning no current safe discharge plan 10/08: Increase Lamictal 100 mg Abilify Maintena 400 mg hold modafinil unclear if was overly stimulating patient continues to present internally preoccupied. 10/09:Healthcare proxy invoked discharge planning continue Lamictal Abilify pending maintain a 10/10:Healthcare proxy invoked new CV signed discharge planning. 10/11 keep same treatment 10/12 keep same treatment 10/13: Continue plan of care Lamictal Abilify discharge planning sertraline 10/14: stable. continue current mgmt. 10/15: stable. continue current mgmt. 10/16: stable presentation. continue current mgmt. 10/17: as for yesterday. 10/18: no changes. 10/19: stabel, safe. no change. 10/20: no change in presentation. calm, cooperative. active on unit, social with select peers, attending groups. Pt reports feeling alright . denies SI/HI/VH/AH. Social work waiting to hear from possible placement location. Continue current tx plan. 10/21: continue current tx plan. awaiting placement. 10/22: calm, cooperative. active on unit, social with select peers, attending groups. Pt reports feeling good ; pt stated, I'm waiting to see where I'm going . denies SI/HI/VH/AH. Showered with encouragement. 10/23: continue current tx plan. 10/24: calm, cooperative. active on unit, social with select peers, attending groups. Pt reports feeling good ; pt stated, I just want a place to live . 10/25- likely at baseline for him- CTP 10/26 CTP likely needs placement 10/27: continue current tx plan. awaiting placement. 10/28: Similar to yesterday. No change in presentation. 10/29: Pt reports feeling good ;pt stated, just waiting for a place to live . denies any issues at this time. 10/30: calm, cooperative. active on unit, social with select peers, attending groups. Pt reports feeling worried about where I am going to live . denies any issues at this time. 10/21: no change in presentation. continue current tx plan. 11/01: continue current management and treatment plan. 11/02: Continue current management and treatment plan. 11/03: Continue current management and treatment plan. 11/04: Active on unit. calm, cooperative. social with select peers, attending groups. denies any issues at this time. He reports sleeping well. Pt reports he would be interested in applying for [facility] services; social work aware. 11/05: Active on unit. calm, cooperative. social with select peers, attending groups. denies any issues at this time. Pt reports feeling okay ; he reports anxiety regarding placement. Continue current tx plan. Patient educated on: diagnosis and medication risk/benefits Reason for continued inpatient stay Substantial Risk for: other (awaiting placement.) Time Spent With Patient Time: Total time managing care of this patient today _20___ minutes.
[2023-11-06 12:39] LABS: Glucose, Whole Blood 131 mg/dL (60-115)
[2023-11-06] MEDS: metFORMIN HCl ER 500 MG TAB.ER.24H 1000 MG PO (17:14)
[2023-11-06 17:22] LABS: Glucose, Whole Blood 148 mg/dL (60-115)
[2023-11-06 20:00] VITALS: BP 133/73; PULSE 90; RESP 18; TEMP 36.4; O2SAT 96
[2023-11-06] MEDS: ARIPiprazole 10 MG TABLET PO (20:20)
[2023-11-06] MEDS: lamoTRIgine 100 MG TABLET PO (20:20)
[2023-11-06] MEDS: Insulin Glargine,Hum.rec.anlog 100 UNIT/ML 10 ML VIAL 20 UNIT SUBCUT (20:20)
[2023-11-06 20:30] LABS: Glucose, Whole Blood 143 mg/dL (60-115)
[2023-11-07 07:00] VITALS: BMI 31.8
[2023-11-07 07:39] VITALS: BP 116/70; PULSE 86; RESP 14; TEMP 36.4; O2SAT 98
[2023-11-07] MEDS: Memantine HCl 5 MG TABLET PO ×2 (08:38→21:44)
[2023-11-07] MEDS: Simethicone 80 MG TAB.CHEW PO ×4 (08:38→21:45)
[2023-11-07] MEDS: Sertraline HCL 100 MG TABLET PO (08:38)
[2023-11-07] MEDS: Levothyroxine Sodium 200 MCG TABLET PO (08:40)
[2023-11-07 08:43] LABS: Glucose, Whole Blood 102 mg/dL (60-115)
[2023-11-07 09:00] LABS: Creatinine Clr Calc Pharmacy 102.9; Estimated Glomerular Filt Rate > 60
[2023-11-07] MEDS: Insulin Lispro 100 UNIT/ML 3 ML VIAL SUBCUT ×2 (12:42→21:43)
[2023-11-07 12:45] LABS: Glucose, Whole Blood 193 mg/dL (60-115)
[2023-11-07] MEDS: metFORMIN HCl ER 500 MG TAB.ER.24H 1000 MG PO (17:17)
[2023-11-07 17:32] LABS: Glucose, Whole Blood 95 mg/dL (60-115)
[2023-11-07 20:00] VITALS: BP 119/67; PULSE 92; RESP 16; TEMP 36.8; O2SAT 97
--- NOTE | 2023-11-07 21:12 | HO.PSYCHPN ---
Subjective Subjective Date of Service: 11/07/23 Reason For Visit: paranoia cognitive impairment Subjective Notes: Conditional Voluntary Healthcare Proxy: Yes Interim History: Pt generally doing ok flat cooperative with tx some socialization . Discharge planning continues Medication Compliance: Yes Side effects from medications: No Attending Groups: Yes Review of Systems Medical Review of Systems: unchanged Mental Status Exam Mental Status Exam Patient Appearance: Appropriate Patient Orientation: Person, Place and Situation Level of Consciousness: Awake Patient Behavior: Appropriate and Cooperative Mood Description: Calm Affect Description: Blunted Patient Cognition Impaired: Yes Ability to Follow Directions: Fair Speech Pattern: Clear and Soft-Spoken 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: Alf Impaired Diagnostics Vital Signs (24Hr): Vital Signs - 24 hr 11/07/23 07:39 Temperature 97.6 F Pulse Rate 86 Respiratory Rate 14 Blood Pressure 116/70 Pulse Oximetry 98 Oxygen Delivery Method Room Air BMI result Body Mass Index 31.8 Labs 09/10/23 20:00 11/07/23 08:26 Labs: Laboratory Results - last 48 hr 11/06/23 11/06/23 11/06/23 08:25 12:26 17:18 Creatinine Estim Creat Clear Calc Estimated GFR POC Glucose 117 H 131 H 148 H 11/06/23 11/07/23 11/07/23 19:58 08:26 08:38 Creatinine 0.89 Estim Creat Clear Calc 102.9 Estimated GFR > 60 POC Glucose 143 H 102 11/07/23 11/07/23 12:38 17:27 Creatinine Estim Creat Clear Calc Estimated GFR POC Glucose 193 H 95 Imaging Radiology Impressions: ITS Impressions Brain MRI 09/19/23 20:33 IMPRESSION: 1. No demonstrated acute intracranial abnormalities. 2. Chronic mild to moderate nonspecific white matter changes, most notably in the deep white matter of the right frontal lobe. Mild to moderate generalized cerebral volume loss. Medications Medications Current Medications Acetaminophen (Acetaminophen 325 Mg Tablet) 650 mg PO Q6H PRN PRN Reason: Headache/Pain Mild Scale (1-3) Last Admin: 10/13/23 09:39 Dose: 650 mg Al Hydroxide/Mg Hydroxide (Magnesium Hydrox/Alum Hydrox 30 Ml Oral.Susp) 30 ml PO Q6H PRN PRN Reason: Heartburn/Nausea Aripiprazole (Aripiprazole 10 Mg Tablet) 10 mg PO BEDTIME MANAS Last Admin: 11/06/23 20:20 Dose: 10 mg Benztropine Mesylate (Benztropine Mesylate 0.5 Mg Tablet) 0.5 mg PO TID PRN PRN Reason: Extrapyramidal Effects Glucose (Glucose Gel 15 Gm Gel..Gram.) 15 gm PO Q15M PRN; Protocol PRN Reason: per Hypoglycemia Standing Ord. Hydroxyzine HCl (Hydroxyzine Hcl 25 Mg Tablet) 25 mg PO Q6H PRN PRN Reason: Anxiety Last Admin: 10/27/23 20:38 Dose: 25 mg Dextrose (D10) 250 mls @ 750 mls/hr IV Q15M PRN; Protocol PRN Reason: per Hypoglycemia Standing Ord. Insulin Glargine (Insulin Glargine,Hum.Rec.Anlog 100 Unit/Ml 10 Ml Vial) 20 unit SUBCUT BEDTIME [facility] Last Admin: 11/06/23 20:20 Dose: 20 unit Insulin Human Lispro (Insulin Lispro 100 Unit/Ml 3 Ml Vial) 0 unit SUBCUT QIDACHS [facility]; Protocol Last Admin: 11/07/23 17:38 Dose: Not Given Lamotrigine (Lamotrigine 100 Mg Tablet) 100 mg PO BEDTIME [facility] Last Admin: 11/06/23 20:20 Dose: 100 mg Levothyroxine Sodium (Levothyroxine Sodium 200 Mcg Tablet) 200 mcg PO DAILY [facility] Last Admin: 11/07/23 08:40 Dose: 200 mcg Magnesium Hydroxide (Milk Of Magnesia 30 Ml Oral.Susp) 30 ml PO DAILY PRN PRN Reason: Constipation Memantine (Memantine Hcl 5 Mg Tablet) 5 mg PO BID [facility] Last Admin: 11/07/23 08:38 Dose: 5 mg Metformin HCl (Metformin Hcl Er 500 Mg Tab.Er.24h) 1,000 mg PO DAILY@1700 [facility] Last Admin: 11/07/23 17:17 Dose: 1,000 mg Nicotine Polacrilex (Nicotine Polacrilex 2 Mg Gum) 4 mg BUCCAL Q2H PRN PRN Reason: Nicotine Cravings Sertraline HCl (Sertraline Hcl 100 Mg Tablet) 100 mg PO DAILY [facility] Last Admin: 11/07/23 08:38 Dose: 100 mg Simethicone (Simethicone 80 Mg Tab.Chew) 80 mg PO QIDWMHS [facility] Last Admin: 11/07/23 17:17 Dose: 80 mg Trazodone HCl (Trazodone Hcl 50 Mg Tablet) 50 mg PO BEDTIME MRX1 PRN PRN Reason: Insomnia Last Admin: 11/02/23 21:52 Dose: 50 mg Allergies Allergies Allergy/AdvReac Type Severity Reaction Status Date / Time amoxicillin [AMOXICILLIN] Allergy Mild VOMITING/ABD Verified 09/10/23 19:44 PAIN Assessment & Plan Assessment & Plan (1) Schizoaffective disorder: Status: Acute Code(s): F25.9 - Schizoaffective disorder, unspecified (2) Hypothyroidism: Status: Acute Code(s): E03.9 - Hypothyroidism, unspecified (3) Type 2 diabetes mellitus: Status: Acute Code(s): E11.9 - Type 2 diabetes mellitus without complications Plan Patient is a 58 year old male with hx of Schizoaffective d/o and hypothyroid disorder/thyroid coma, stroke and brain aneurysm, who was [place] [facility] [place] [facility] [place] 12 d/t disorganized behavior, concern for his memory impairment, medications noncompliance and poor ADLs. Plan: CV 15 minute safety checks Continue home medications: Haldol 10mg PO daily Synthroid 200mcg PO daily Obtain labs; A1C/POCs Obtain collateral from sister Obtain records from last hospitalization. MOCA Referral for [facility] services if patient is agreeable. encourage medication compliance;consider VARGAS discharge planning 09/11: Elevated fasting blood sugar elevated hemoglobin A1c 9.2 med consult placed put in point of care needed will start metformin Would benefit from clarity over recent hospitalization what this were done details regarding treatment continue Haldol unclear if patient has Healthcare proxy his Coles was low slowed cognition with poor details in depth at times during blankly regarding making judgments Unclear if any of this relates to past coma or 2 hypothyroidism. He does seem more impaired than when last seen unclear when last imaging was. Continue Haldol sitter neuro indira involvement regarding diagnostic picture. Patient does remain paranoid blunted suspicious apathetic. He might benefit from longer-term placement if available and appropriate at a later time involved [facility] involvement would be quite helpful 09/12: cont haldol get records ? hcp ? start antidep unclear hx 09/13: Keeping to self. More talkative today. Pt concerned he will be transferred to [facility]. Pt stated, The paper I signed yesterday. Are you going to send me back to the last hospital? That place was horrible . Pt was educated he signed a release of information with Dr. Gonzalez to obtain records from [facility]. Pt was given a copy of the release he signed. Despite this, pt continues to be anxious about being transferred. Pt denies SI/HI/VH/AH. 09/14: Keeping to self. active on unit. showered. Pt reports feeling alright today; pt reports he is worried about where I'm going to go . Pt continues concerned he will be transferred to [facility]. Pt denies SI/HI/VH/AH. 09/15:Pt reports feeling alright today; pt continues to report he is worried about where I'm going to go . Responding with brief responses. Guarded. Observed standing in one place for a long period of time. Appears confused. Pt denies SI/HI/VH/AH. T/W spoke to patient's sister, Ros, with patients verbal consent. Ros reports concerns regarding patients ability to make decisions regarding his mental and physical health. She plans on contacting legal advice on obtaining guardianship of patient. 09/16:Patient's presents similar to yesterday's presentation. Responding with brief responses. Guarded. Observed standing in one place for a long period of time, when asked what he is doing, pt stated, I don't know . Pt reports he plans on contacting his sister today and try to convince her for me to stay there . Pt denies SI/HI/VH/AH. Continue current tx plan. 09/17: brief responses. Guarded. 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 Pt denies SI/HI/VH/AH. T/W and Dr. Gonzalez spoke to patient's sister, Ros. Ros stated being [facility] HCP and plans on finding document. She plans on coming to the hospital on Saturday to be present for [facility] intake. 09/21: No changes 09/22:Patient flat apathetic difficult insight and judgment his sister is healthcare proxy if needed patient is accepting medical treatment Referral to [facility] 09/23:Considers starting Haldol Decanoate patient is agreeable superficially difficulty with exec fx was seen [facility] 09/24:Pt seen in f/u mood flat dysphoric difficulty engaging in conversation preoccupied with thought he wont be living with family thing slowed apathetic no clear response with namenda ? some improvement inc lamictal start low dose sertraline inc lamictal ck tsh 09/25:Start Abilify as augmentation with Haldol see if can be more stimulating regarding depressed mood apathetic limited engagement sertraline 50 mg Lamictal 25 b.i.d. referral to [facility] which would have structure unclear if patient can engage with this he remains quite depressed has delusional beliefs regarding housing and that things have been done he has repeatedly tried to reach out to his sister denies active SI needs much help dressing talking with others encouragement to eat severe thought blocking Abilify might be more stimulating than Haldol which can be more dulling 09/26:Abilify started sertraline Lamictal encouraged step-down to [facility] encourage reality orientation denies active SI 09/27: Continue current regimen and plans 09/28: Continue current regimen and plans. 09/29: Referral to [facility] increase Abilify to 5 mg daily eventually try and taper Haldol sertraline 50 mg daily 09/30:Increase Abilify to 10 mg lower Haldol to 7 mg continue sertraline and Lamictal 10/01:Abilify increased to 10 mg continue to taper Haldol sertraline 100 mg Lamictal increased to 75 mg patient apathetic withdrawn difficulty with placement some paranoia continues difficulty with decision making at times. Not physically aggressive internally preoccupied seems somewhat improved with Abilify sertraline Continue discharge planning 10/02:Patient somewhat blunted flat slowed thinking during the day times staring. Change Abilify to 10 mg at bedtime. Scheduled Haldol will lowered to 2.5 mg Continue sertraline 100 mg Namenda 5 b.i.d. 10/03:Haldol discontinued modafinil low-dose monitor for psychosis or agitation continue discharge planning 10/06: May need to firm healthcare proxy calls have been placed to sister to try to help in discharge planning. Referrals made. Patient cooperative with care 10/07:Pharmacy ordering Abilify maintain a increase modafinil 100 mg patient remains flat passive depressed some improvement noted no current paranoia noted continue discharge planning no current safe discharge plan 10/08: Increase Lamictal 100 mg Abilify Maintena 400 mg hold modafinil unclear if was overly stimulating patient continues to present internally preoccupied. 10/09:Healthcare proxy invoked discharge planning continue Lamictal Abilify pending maintain a 10/10:Healthcare proxy invoked new CV signed discharge planning. 10/11 keep same treatment 10/12 keep same treatment 10/13: Continue plan of care Lamictal Abilify discharge planning sertraline 10/14: stable. continue current mgmt. 10/15: stable. continue current mgmt. 10/16: stable presentation. continue current mgmt. 10/17: as for yesterday. 10/18: no changes. 10/19: stabel, safe. no change. 10/20: no change in presentation. calm, cooperative. active on unit, social with select peers, attending groups. Pt reports feeling alright . denies SI/HI/VH/AH. Social work waiting to hear from possible placement location. Continue current tx plan. 10/21: continue current tx plan. awaiting placement. 10/22: calm, cooperative. active on unit, social with select peers, attending groups. Pt reports feeling good ; pt stated, I'm waiting to see where I'm going . denies SI/HI/VH/AH. Showered with encouragement. 10/23: continue current tx plan. 10/24: calm, cooperative. active on unit, social with select peers, attending groups. Pt reports feeling good ; pt stated, I just want a place to live . 10/25- likely at baseline for him- CTP 10/26 CTP likely needs placement 10/27: continue current tx plan. awaiting placement. 10/28: Similar to yesterday. No change in presentation. 10/29: Pt reports feeling good ;pt stated, just waiting for a place to live . denies any issues at this time. 10/30: calm, cooperative. active on unit, social with select peers, attending groups. Pt reports feeling worried about where I am going to live . denies any issues at this time. 10/21: no change in presentation. continue current tx plan. 11/01: continue current management and treatment plan. 11/02: Continue current management and treatment plan. 11/03: Continue current management and treatment plan. 11/04: Active on unit. calm, cooperative. social with select peers, attending groups. denies any issues at this time. He reports sleeping well. Pt reports he would be interested in applying for [facility] services; social work aware. 11/05: Active on unit. calm, cooperative. social with select peers, attending groups. denies any issues at this time. Pt reports feeling okay ; he reports anxiety regarding placement. Continue current tx plan. 11/07/23 [facility] referral has appropriate concerns re living stuation cont abilify lamictal Reason for continued inpatient stay Substantial Risk for: inability to function and rapid decompensation Time Spent With Patient Time: Total time managing care of this patient today ____ minutes.
[2023-11-07 21:38] LABS: Glucose, Whole Blood 226 mg/dL (60-115)
[2023-11-07] MEDS: Insulin Glargine,Hum.rec.anlog 100 UNIT/ML 10 ML VIAL 20 UNIT SUBCUT (21:44)
[2023-11-07] MEDS: ARIPiprazole 10 MG TABLET PO (21:44)
[2023-11-07] MEDS: lamoTRIgine 100 MG TABLET PO (21:45)
[2023-11-07] MEDS: traZODone HCL 50 MG TABLET PO (21:45)
[2023-11-08 08:00] VITALS: BP 123/74; PULSE 82; RESP 18; TEMP 36.9; O2SAT 96
[2023-11-08 08:38] LABS: Glucose, Whole Blood 118 mg/dL (60-115)
[2023-11-08] MEDS: Levothyroxine Sodium 200 MCG TABLET PO (09:09)
[2023-11-08] MEDS: Memantine HCl 5 MG TABLET PO ×2 (09:09→20:59)
[2023-11-08] MEDS: Sertraline HCL 100 MG TABLET PO (09:09)
[2023-11-08] MEDS: Simethicone 80 MG TAB.CHEW PO ×4 (09:09→20:58)
[2023-11-08 12:44] LABS: Glucose, Whole Blood 172 mg/dL (60-115)
[2023-11-08] MEDS: Insulin Lispro 100 UNIT/ML 3 ML VIAL SUBCUT ×3 (13:23→20:56)
[2023-11-08 17:34] LABS: Glucose, Whole Blood 197 mg/dL (60-115)
[2023-11-08] MEDS: metFORMIN HCl ER 500 MG TAB.ER.24H 1000 MG PO (17:42)
[2023-11-08 20:00] VITALS: BP 132/65; PULSE 91; RESP 16; TEMP 36.6; O2SAT 95
[2023-11-08 20:31] LABS: Glucose, Whole Blood 181 mg/dL (60-115)
[2023-11-08] MEDS: Insulin Glargine,Hum.rec.anlog 100 UNIT/ML 10 ML VIAL 20 UNIT SUBCUT (20:56)
[2023-11-08] MEDS: ARIPiprazole 10 MG TABLET PO (20:58)
[2023-11-08] MEDS: traZODone HCL 50 MG TABLET PO (20:59)
[2023-11-08] MEDS: lamoTRIgine 100 MG TABLET PO (20:59)
--- NOTE | 2023-11-08 21:34 | P.PNPSI_ITS ---
Subjective Subjective Date of Service: 11/08/23 Reason For Visit: paranoia cognitive impairment Subjective Notes: Conditional Voluntary Interim History: Patient not combative on the unit cooperative with care. Has been more engaged with discharge planning more receptive to alternative planning referrals made to [facility]. Patient subdued but engaged when approached not threatening or combative. Medication Compliance: Yes Side effects from medications: No Attending Groups: Yes Mental Status Exam Mental Status Exam Patient Appearance: Appropriate Patient Orientation: Person, Place and Situation Level of Consciousness: Awake Patient Behavior: Appropriate and Cooperative Mood Description: Calm Affect Description: Blunted Patient Cognition Impaired: Yes Ability to Follow Directions: Fair Speech Pattern: Clear and Soft-Spoken 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: Mcc Impaired Diagnostics Vital Signs (24Hr): Vital Signs - 24 hr 11/08/23 08:00 Temperature 98.5 F Pulse Rate 82 Respiratory Rate 18 Blood Pressure 123/74 Pulse Oximetry 96 Oxygen Delivery Method Room Air BMI result Body Mass Index 31.8 Labs 09/10/23 20:00 11/07/23 08:26 Labs: Laboratory Results - last 48 hr 11/07/23 11/07/23 11/07/23 08:26 08:38 12:38 Creatinine 0.89 Estim Creat Clear Calc 102.9 Estimated GFR > 60 POC Glucose 102 193 H 11/07/23 11/07/23 11/08/23 17:27 21:33 08:31 Creatinine Estim Creat Clear Calc Estimated GFR POC Glucose 95 226 H 118 H 11/08/23 11/08/23 11/08/23 12:33 17:22 20:19 Creatinine Estim Creat Clear Calc Estimated GFR POC Glucose 172 H 197 H 181 H Imaging Radiology Impressions: ITS Impressions Brain MRI 09/19/23 20:33 IMPRESSION: 1. No demonstrated acute intracranial abnormalities. 2. Chronic mild to moderate nonspecific white matter changes, most notably in the deep white matter of the right frontal lobe. Mild to moderate generalized cerebral volume loss. Medications Medications Current Medications Acetaminophen (Acetaminophen 325 Mg Tablet) 650 mg PO Q6H PRN PRN Reason: Headache/Pain Mild Scale (1-3) Last Admin: 10/13/23 09:39 Dose: 650 mg Al Hydroxide/Mg Hydroxide (Magnesium Hydrox/Alum Hydrox 30 Ml Oral.Susp) 30 ml PO Q6H PRN PRN Reason: Heartburn/Nausea Aripiprazole (Aripiprazole 10 Mg Tablet) 10 mg PO BEDTIME MANAS Last Admin: 11/08/23 20:58 Dose: 10 mg Benztropine Mesylate (Benztropine Mesylate 0.5 Mg Tablet) 0.5 mg PO TID PRN PRN Reason: Extrapyramidal Effects Glucose (Glucose Gel 15 Gm Gel..Gram.) 15 gm PO Q15M PRN; Protocol PRN Reason: per Hypoglycemia Standing Ord. Hydroxyzine HCl (Hydroxyzine Hcl 25 Mg Tablet) 25 mg PO Q6H PRN PRN Reason: Anxiety Last Admin: 10/27/23 20:38 Dose: 25 mg Dextrose (D10) 250 mls @ 750 mls/hr IV Q15M PRN; Protocol PRN Reason: per Hypoglycemia Standing Ord. Insulin Glargine (Insulin Glargine,Hum.Rec.Anlog 100 Unit/Ml 10 Ml Vial) 20 unit SUBCUT BEDTIME COUNT INCLUDES THE [facility] Last Admin: 11/08/23 20:56 Dose: 20 unit Insulin Human Lispro (Insulin Lispro 100 Unit/Ml 3 Ml Vial) 0 unit SUBCUT QIDACHS COUNT INCLUDES THE [facility]; Protocol Last Admin: 11/08/23 20:56 Dose: 2 unit Lamotrigine (Lamotrigine 100 Mg Tablet) 100 mg PO BEDTIME COUNT INCLUDES THE [facility] Last Admin: 11/08/23 20:59 Dose: 100 mg Levothyroxine Sodium (Levothyroxine Sodium 200 Mcg Tablet) 200 mcg PO DAILY COUNT INCLUDES THE [facility] Last Admin: 11/08/23 09:09 Dose: 200 mcg Magnesium Hydroxide (Milk Of Magnesia 30 Ml Oral.Susp) 30 ml PO DAILY PRN PRN Reason: Constipation Memantine (Memantine Hcl 5 Mg Tablet) 5 mg PO BID COUNT INCLUDES THE [facility] Last Admin: 11/08/23 20:59 Dose: 5 mg Metformin HCl (Metformin Hcl Er 500 Mg Tab.Er.24h) 1,000 mg PO DAILY@1700 COUNT INCLUDES THE [facility] Last Admin: 11/08/23 17:42 Dose: 1,000 mg Nicotine Polacrilex (Nicotine Polacrilex 2 Mg Gum) 4 mg BUCCAL Q2H PRN PRN Reason: Nicotine Cravings Sertraline HCl (Sertraline Hcl 100 Mg Tablet) 100 mg PO DAILY COUNT INCLUDES THE [facility] Last Admin: 11/08/23 09:09 Dose: 100 mg Simethicone (Simethicone 80 Mg Tab.Chew) 80 mg PO QIDWMHS COUNT INCLUDES THE [facility] Last Admin: 11/08/23 20:58 Dose: 80 mg Trazodone HCl (Trazodone Hcl 50 Mg Tablet) 50 mg PO BEDTIME MRX1 PRN PRN Reason: Insomnia Last Admin: 11/08/23 20:59 Dose: 50 mg Allergies Allergies Allergy/AdvReac Type Severity Reaction Status Date / Time amoxicillin [AMOXICILLIN] Allergy Mild VOMITING/ABD Verified 09/10/23 19:44 PAIN Assessment & Plan Assessment & Plan (1) Schizoaffective disorder: Status: Acute Code(s): F25.9 - Schizoaffective disorder, unspecified (2) Hypothyroidism: Status: Acute Code(s): E03.9 - Hypothyroidism, unspecified (3) Type 2 diabetes mellitus: Status: Acute Code(s): E11.9 - Type 2 diabetes mellitus without complications Plan Patient is a 58 year old male with hx of Schizoaffective d/o and hypothyroid disorder/thyroid coma, stroke and brain aneurysm, who was brought to [facility] on a [facility] 12 d/t disorganized behavior, concern for his memory impairment, medications noncompliance and poor ADLs. Plan: CV 15 minute safety checks Continue home medications: Haldol 10mg PO daily Synthroid 200mcg PO daily Obtain labs; A1C/POCs Obtain collateral from sister Obtain records from last hospitalization. MOCA Referral for [facility] services if patient is agreeable. encourage medication compliance;consider VARGAS discharge planning 09/11: Elevated fasting blood sugar elevated hemoglobin A1c 9.2 med consult placed put in point of care needed will start metformin Would benefit from clarity over recent hospitalization what this were done details regarding treatment continue Haldol unclear if patient has Healthcare proxy his [place] was low slowed cognition with poor details in depth at times during blankly regarding making judgments Unclear if any of this relates to past coma or 2 hypothyroidism. He does seem more impaired than when last seen unclear when last imaging was. Continue Haldol sitter neuro indira involvement regarding diagnostic picture. Patient does remain paranoid blunted suspicious apathetic. He might benefit from longer- term placement if available and appropriate at a later time involved [facility] involvement would be quite helpful 09/12: cont haldol get records ? hcp ? start antidep unclear hx 09/13: Keeping to self. More talkative today. Pt concerned he will be transferred to [facility]. Pt stated, The paper I signed yesterday. Are you going to send me back to the last hospital? That place was horrible . Pt was educated he signed a release of information with Dr. Gonzalez to obtain records from [facility]. Pt was given a copy of the release he signed. Despite this, pt continues to be anxious about being transferred. Pt denies SI/HI/VH/AH. 09/14: Keeping to self. active on unit. showered. Pt reports feeling alright today; pt reports he is worried about where I'm going to go . Pt continues concerned he will be transferred to [facility]. Pt denies SI/HI/VH/AH. 09/15:Pt reports feeling alright today; pt continues to report he is worried about where I'm going to go . Responding with brief responses. Guarded. Observed standing in one place for a long period of time. Appears confused. Pt denies SI/HI/VH/AH. T/W spoke to patient's sister, Ros, with patients verbal consent. Ros reports concerns regarding patients ability to make decisions regarding his mental and physical health. She plans on contacting legal advice on obtaining guardianship of patient. 09/16:Patient's presents similar to yesterday's presentation. Responding with brief responses. Guarded. Observed standing in one place for a long period of time, when asked what he is doing, pt stated, I don't know . Pt reports he plans on contacting his sister today and try to convince her for me to stay there . Pt denies SI/HI/VH/AH. Continue current tx plan. 09/17: brief responses. Guarded. Continues to windows admin one place for a long period of time, when asked what he is doing, pt stated, I don't know . Pt denies SI/HI/VH/AH. T/W and Dr. Gonzalez spoke to patient's sister, Ros. Ros stated being [facility] HCP and plans on finding document. She plans on coming to the hospital on Saturday to be present for [facility] intake. 09/21: No changes 09/22:Patient flat apathetic difficult insight and judgment his sister is healthcare proxy if needed patient is accepting medical treatment Referral to [facility] 09/23:Considers starting Haldol Dec[place] patient is agreeable superficially difficulty with exec fx was seen [facility] 09/24:Pt seen in f/u mood flat dysphoric difficulty engaging in conversation preoccupied with thought he wont be living with family thing slowed apathetic no clear response with namenda ? some improvement inc lamictal start low dose sertraline inc lamictal ck tsh 09/25:Start Abilify as augmentation with Haldol see if can be more stimulating regarding depressed mood apathetic limited engagement sertraline 50 mg Lamictal 25 b.i.d. referral to [facility] which would have structure unclear if patient can engage with this he remains quite depressed has delusional beliefs regarding housing and that things have been done he has repeatedly tried to reach out to his sister denies active SI needs much help dressing talking with others encouragement to eat severe thought blocking Abilify might be more stimulating than Haldol which can be more dulling 09/26:Abilify started sertraline Lamictal encouraged step-down to [facility] encourage reality orientation denies active SI 09/27: Continue current regimen and plans 09/28: Continue current regimen and plans. 09/29: Referral to [facility] increase Abilify to 5 mg daily eventually try and taper Haldol sertraline 50 mg daily 09/30:Increase Abilify to 10 mg lower Haldol to 7 mg continue sertraline and Lamictal 10/01:Abilify increased to 10 mg continue to taper Haldol sertraline 100 mg Lamictal increased to 75 mg patient apathetic withdrawn difficulty with placement some paranoia continues difficulty with decision making at times. Not physically aggressive internally preoccupied seems somewhat improved with Abilify sertraline Continue discharge planning 10/02:Patient somewhat blunted flat slowed thinking during the day times staring. Change Abilify to 10 mg at bedtime. Scheduled Haldol will lowered to 2.5 mg Continue sertraline 100 mg Namenda 5 b.i.d. 10/03:Haldol discontinued modafinil low-dose monitor for psychosis or agitation continue discharge planning 10/06: May need to firm healthcare proxy calls have been placed to sister to try to help in discharge planning. Referrals made. Patient cooperative with care 10/07:Pharmacy ordering Abilify maintain a increase modafinil 100 mg patient remains flat passive depressed some improvement noted no current paranoia noted continue discharge planning no current safe discharge plan 10/08: Increase Lamictal 100 mg Abilify Maintena 400 mg hold modafinil unclear if was overly stimulating patient continues to present internally preoccupied. 10/09:Healthcare proxy invoked discharge planning continue Lamictal Abilify pending maintain a 10/10:Healthcare proxy invoked new CV signed discharge planning. 10/11 keep same treatment 10/12 keep same treatment 10/13: Continue plan of care Lamictal Abilify discharge planning sertraline 10/14: stable. continue current mgmt. 10/15: stable. continue current mgmt. 10/16: stable presentation. continue current mgmt. 10/17: as for yesterday. 10/18: no changes. 10/19: stabel, safe. no change. 10/20: no change in presentation. calm, cooperative. active on unit, social with select peers, attending groups. Pt reports feeling alright . denies SI/HI/VH/AH. Social work waiting to hear from possible placement location. Continue current tx plan. 10/21: continue current tx plan. awaiting placement. 10/22: calm, cooperative. active on unit, social with select peers, attending groups. Pt reports feeling good ; pt stated, I'm waiting to see where I'm going . denies SI/HI/VH/AH. Showered with encouragement. 10/23: continue current tx plan. 10/24: calm, cooperative. active on unit, social with select peers, attending groups. Pt reports feeling good ; pt stated, I just want a place to live . 10/25- likely at baseline for him- CTP 10/26 CTP likely needs placement 10/27: continue current tx plan. awaiting placement. 10/28: Similar to yesterday. No change in presentation. 10/29: Pt reports feeling good ;pt stated, just waiting for a place to live . denies any issues at this time. 10/30: calm, cooperative. active on unit, social with select peers, attending groups. Pt reports feeling worried about where I am going to live . denies any issues at this time. 10/21: no change in presentation. continue current tx plan. 11/01: continue current management and treatment plan. 11/02: Continue current management and treatment plan. 11/03: Continue current management and treatment plan. 11/04: Active on unit. calm, cooperative. social with select peers, attending groups. denies any issues at this time. He reports sleeping well. Pt reports he would be interested in applying for [facility] services; social work aware. 11/05: Active on unit. calm, cooperative. social with select peers, attending groups. denies any issues at this time. Pt reports feeling okay ; he reports anxiety regarding placement. Continue current tx plan. 11/07/23 [facility] referral has appropriate concerns re living stuation cont abilify lamictal Patient educated on: therapeutic strategies and medical condition Informed Consent: further education needed Reason for continued inpatient stay Substantial Risk for: inability to function, rapid decompensation and med/psych decompensation Time Spent With Patient Time: Total time managing care of this patient today ____ minutes.
--- NOTE | 2023-11-08 21:56 | P.PNPSI_ITS ---
Subjective Subjective Date of Service: 11/08/23 Reason For Visit: paranoia cognitive impairment Healthcare Proxy: Yes Interim History: Pt passive withdrawn not grossly paranoid has been out in milieu referral to [facility] Mental Status Exam Mental Status Exam Patient Appearance: Appropriate Patient Orientation: Person, Place and Situation Level of Consciousness: Awake Patient Behavior: Appropriate and Cooperative Mood Description: Calm Affect Description: Blunted Patient Cognition Impaired: Yes Ability to Follow Directions: Fair Speech Pattern: Clear and Soft-Spoken 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: Half-Way Impaired Diagnostics Vital Signs (24Hr): Vital Signs - 24 hr 11/08/23 08:00 Temperature 98.5 F Pulse Rate 82 Respiratory Rate 18 Blood Pressure 123/74 Pulse Oximetry 96 Oxygen Delivery Method Room Air BMI result Body Mass Index 31.8 Labs 09/10/23 20:00 11/07/23 08:26 Labs: Laboratory Results - last 48 hr 11/07/23 11/07/23 11/07/23 08:26 08:38 12:38 Creatinine 0.89 Estim Creat Clear Calc 102.9 Estimated GFR > 60 POC Glucose 102 193 H 11/07/23 11/07/23 11/08/23 17:27 21:33 08:31 Creatinine Estim Creat Clear Calc Estimated GFR POC Glucose 95 226 H 118 H 11/08/23 11/08/23 11/08/23 12:33 17:22 20:19 Creatinine Estim Creat Clear Calc Estimated GFR POC Glucose 172 H 197 H 181 H Imaging Radiology Impressions: ITS Impressions Brain MRI 09/19/23 20:33 IMPRESSION: 1. No demonstrated acute intracranial abnormalities. 2. Chronic mild to moderate nonspecific white matter changes, most notably in the deep white matter of the right frontal lobe. Mild to moderate generalized cerebral volume loss. Medications Medications Current Medications Acetaminophen (Acetaminophen 325 Mg Tablet) 650 mg PO Q6H PRN PRN Reason: Headache/Pain Mild Scale (1-3) Last Admin: 10/13/23 09:39 Dose: 650 mg Al Hydroxide/Mg Hydroxide (Magnesium Hydrox/Alum Hydrox 30 Ml Oral.Susp) 30 ml PO Q6H PRN PRN Reason: Heartburn/Nausea Aripiprazole (Aripiprazole 10 Mg Tablet) 10 mg PO BEDTIME MANAS Last Admin: 11/08/23 20:58 Dose: 10 mg Benztropine Mesylate (Benztropine Mesylate 0.5 Mg Tablet) 0.5 mg PO TID PRN PRN Reason: Extrapyramidal Effects Glucose (Glucose Gel 15 Gm Gel..Gram.) 15 gm PO Q15M PRN; Protocol PRN Reason: per Hypoglycemia Standing Ord. Hydroxyzine HCl (Hydroxyzine Hcl 25 Mg Tablet) 25 mg PO Q6H PRN PRN Reason: Anxiety Last Admin: 10/27/23 20:38 Dose: 25 mg Dextrose (D10) 250 mls @ 750 mls/hr IV Q15M PRN; Protocol PRN Reason: per Hypoglycemia Standing Ord. Insulin Glargine (Insulin Glargine,Hum.Rec.Anlog 100 Unit/Ml 10 Ml Vial) 20 unit SUBCUT BEDTIME [facility] Last Admin: 11/08/23 20:56 Dose: 20 unit Insulin Human Lispro (Insulin Lispro 100 Unit/Ml 3 Ml Vial) 0 unit SUBCUT QIDACHS [facility]; Protocol Last Admin: 11/08/23 20:56 Dose: 2 unit Lamotrigine (Lamotrigine 100 Mg Tablet) 100 mg PO BEDTIME [facility] Last Admin: 11/08/23 20:59 Dose: 100 mg Levothyroxine Sodium (Levothyroxine Sodium 200 Mcg Tablet) 200 mcg PO DAILY [facility] Last Admin: 11/08/23 09:09 Dose: 200 mcg Magnesium Hydroxide (Milk Of Magnesia 30 Ml Oral.Susp) 30 ml PO DAILY PRN PRN Reason: Constipation Memantine (Memantine Hcl 5 Mg Tablet) 5 mg PO BID [facility] Last Admin: 11/08/23 20:59 Dose: 5 mg Metformin HCl (Metformin Hcl Er 500 Mg Tab.Er.24h) 1,000 mg PO DAILY@1700 [facility] Last Admin: 11/08/23 17:42 Dose: 1,000 mg Nicotine Polacrilex (Nicotine Polacrilex 2 Mg Gum) 4 mg BUCCAL Q2H PRN PRN Reason: Nicotine Cravings Sertraline HCl (Sertraline Hcl 100 Mg Tablet) 100 mg PO DAILY [facility] Last Admin: 11/08/23 09:09 Dose: 100 mg Simethicone (Simethicone 80 Mg Tab.Chew) 80 mg PO QIDWMHS [facility] Last Admin: 11/08/23 20:58 Dose: 80 mg Trazodone HCl (Trazodone Hcl 50 Mg Tablet) 50 mg PO BEDTIME MRX1 PRN PRN Reason: Insomnia Last Admin: 11/08/23 20:59 Dose: 50 mg Allergies Allergies Allergy/AdvReac Type Severity Reaction Status Date / Time amoxicillin [AMOXICILLIN] Allergy Mild VOMITING/ABD Verified 09/10/23 19:44 PAIN Assessment & Plan Assessment & Plan (1) Schizoaffective disorder: Status: Acute Code(s): F25.9 - Schizoaffective disorder, unspecified (2) Hypothyroidism: Status: Acute Code(s): E03.9 - Hypothyroidism, unspecified (3) Type 2 diabetes mellitus: Status: Acute Code(s): E11.9 - Type 2 diabetes mellitus without complications Plan Patient is a 58 year old male with hx of Schizoaffective d/o and hypothyroid disorder/thyroid coma, stroke and brain aneurysm, who was brought to [facility] on a [address] d/t disorganized behavior, concern for his memory impairment, medications noncompliance and poor ADLs. Plan: CV 15 minute safety checks Continue home medications: Haldol 10mg PO daily Synthroid 200mcg PO daily Obtain labs; A1C/POCs Obtain collateral from sister Obtain records from last hospitalization. MOCA Referral for [facility] services if patient is agreeable. encourage medication compliance;consider VARGAS discharge planning 09/11: Elevated fasting blood sugar elevated hemoglobin A1c 9.2 med consult placed put in point of care needed will start metformin Would benefit from clarity over recent hospitalization what this were done details regarding treatment continue Haldol unclear if patient has Healthcare proxy his [place] was low slowed cognition with poor details in depth at times during blankly regarding making judgments Unclear if any of this relates to past coma or 2 hypothyroidism. He does seem more impaired than when last seen unclear when last imaging was. Continue Haldol sitter neuro indira involvement regarding diagnostic picture. Patient does remain paranoid blunted suspicious apathetic. He might benefit from longer- term placement if available and appropriate at a later time involved [facility] involvement would be quite helpful 09/12: cont haldol get records ? hcp ? start antidep unclear hx 09/13: Keeping to self. More talkative today. Pt concerned he will be transferred to [facility]. Pt stated, The paper I signed yesterday. Are you going to send me back to the last hospital? That place was horrible . Pt was educated he signed a release of information with Dr. Gonzalez to obtain records from [facility]. Pt was given a copy of the release he signed. Despite this, pt continues to be anxious about being transferred. Pt denies SI/HI/VH/AH. 09/14: Keeping to self. active on unit. showered. Pt reports feeling alright today; pt reports he is worried about where I'm going to go . Pt continues concerned he will be transferred to [facility]. Pt denies SI/HI/VH/AH. 09/15:Pt reports feeling alright today; pt continues to report he is worried about where I'm going to go . Responding with brief responses. Guarded. Observed standing in one place for a long period of time. Appears confused. Pt denies SI/HI/VH/AH. T/W spoke to patient's sister, Ros, with patients verbal consent. Ros reports concerns regarding patients ability to make decisions regarding his mental and physical health. She plans on contacting legal advice on obtaining guardianship of patient. 09/16:Patient's presents similar to yesterday's presentation. Responding with brief responses. Guarded. Observed standing in one place for a long period of time, when asked what he is doing, pt stated, I don't know . Pt reports he plans on contacting his sister today and try to convince her for me to stay there . Pt denies SI/HI/VH/AH. Continue current tx plan. 09/17: brief responses. Guarded. Continues to voucher examiner one place for a long period of time, when asked what he is doing, pt stated, I don't know . Pt denies SI/HI/VH/AH. T/W and Dr. Gnozalez spoke to patient's sister, Ros. Ros stated being [facility] HCP and plans on finding document. She plans on coming to the hospital on Saturday to be present for [facility] intake. 09/21: No changes 09/22:Patient flat apathetic difficult insight and judgment his sister is healthcare proxy if needed patient is accepting medical treatment Referral to [facility] 09/23:Considers starting Haldol Decanoate patient is agreeable superficially difficulty with exec fx was seen [facility] 09/24:Pt seen in f/u mood flat dysphoric difficulty engaging in conversation preoccupied with thought he wont be living with family thing slowed apathetic no clear response with miloa ? some improvement inc lamictal start low dose sertraline inc lamictal ck tsh 09/25:Start Abilify as augmentation with Haldol see if can be more stimulating regarding depressed mood apathetic limited engagement sertraline 50 mg Lamictal 25 b.i.d. referral to [facility] which would have structure unclear if patient can engage with this he remains quite depressed has delusional beliefs regarding housing and that things have been done he has repeatedly tried to reach out to his sister denies active SI needs much help dressing talking with others encouragement to eat severe thought blocking Abilify might be more stimulating than Haldol which can be more dulling 09/26:Abilify started sertraline Lamictal encouraged step-down to [facility] encourage reality orientation denies active SI 09/27: Continue current regimen and plans 09/28: Continue current regimen and plans. 09/29: Referral to [facility] increase Abilify to 5 mg daily eventually try and taper Haldol sertraline 50 mg daily 09/30:Increase Abilify to 10 mg lower Haldol to 7 mg continue sertraline and Lamictal 10/01:Abilify increased to 10 mg continue to taper Haldol sertraline 100 mg Lamictal increased to 75 mg patient apathetic withdrawn difficulty with placement some paranoia continues difficulty with decision making at times. Not physically aggressive internally preoccupied seems somewhat improved with Abilify sertraline Continue discharge planning 10/02:Patient somewhat blunted flat slowed thinking during the day times staring. Change Abilify to 10 mg at bedtime. Scheduled Haldol will lowered to 2.5 mg Continue sertraline 100 mg Namenda 5 b.i.d. 10/03:Haldol discontinued modafinil low-dose monitor for psychosis or agitation continue discharge planning 10/06: May need to firm healthcare proxy calls have been placed to sister to try to help in discharge planning. Referrals made. Patient cooperative with care 10/07:Pharmacy ordering Abilify maintain a increase modafinil 100 mg patient remains flat passive depressed some improvement noted no current paranoia noted continue discharge planning no current safe discharge plan 10/08: Increase Lamictal 100 mg Abilify Maintena 400 mg hold modafinil unclear if was overly stimulating patient continues to present internally preoccupied. 10/09:Healthcare proxy invoked discharge planning continue Lamictal Abilify pending maintain a 10/10:Healthcare proxy invoked new CV signed discharge planning. 10/11 keep same treatment 10/12 keep same treatment 10/13: Continue plan of care Lamictal Abilify discharge planning sertraline 10/14: stable. continue current mgmt. 10/15: stable. continue current mgmt. 10/16: stable presentation. continue current mgmt. 10/17: as for yesterday. 10/18: no changes. 10/19: stabel, safe. no change. 10/20: no change in presentation. calm, cooperative. active on unit, social with select peers, attending groups. Pt reports feeling alright . denies SI/HI/VH/AH. Social work waiting to hear from possible placement location. Continue current tx plan. 10/21: continue current tx plan. awaiting placement. 10/22: calm, cooperative. active on unit, social with select peers, attending groups. Pt reports feeling good ; pt stated, I'm waiting to see where I'm going . denies SI/HI/VH/AH. Showered with encouragement. 10/23: continue current tx plan. 10/24: calm, cooperative. active on unit, social with select peers, attending groups. Pt reports feeling good ; pt stated, I just want a place to live . 10/25- likely at baseline for him- CTP 10/26 CTP likely needs placement 10/27: continue current tx plan. awaiting placement. 10/28: Similar to yesterday. No change in presentation. 10/29: Pt reports feeling good ;pt stated, just waiting for a place to live . denies any issues at this time. 10/30: calm, cooperative. active on unit, social with select peers, attending groups. Pt reports feeling worried about where I am going to live . denies any issues at this time. 10/21: no change in presentation. continue current tx plan. 11/01: continue current management and treatment plan. 11/02: Continue current management and treatment plan. 11/03: Continue current management and treatment plan. 11/04: Active on unit. calm, cooperative. social with select peers, attending groups. denies any issues at this time. He reports sleeping well. Pt reports he would be interested in applying for [facility] services; social work aware. 11/05: Active on unit. calm, cooperative. social with select peers, attending groups. denies any issues at this time. Pt reports feeling okay ; he reports anxiety regarding placement. Continue current tx plan. 11/07/23 [facility] referral has appropriate concerns re living stuation cont abilify lamictal 11/08/23 Pt cooperative with care d/c planning working with cont d/c planning cont lamictal abilify Reason for continued inpatient stay Substantial Risk for: inability to function and rapid decompensation Time Spent With Patient Time: Total time managing care of this patient today ____ minutes.
[2023-11-09 07:50] VITALS: BP 156/91; PULSE 108; RESP 14; TEMP 36.6; O2SAT 96
--- NOTE | 2023-11-09 08:07 | P.PNPSI_ITS ---
Subjective Subjective Date of Service: 11/09/23 Reason For Visit: paranoia cognitive impairment Interim History: Met with patient. In the milieu today. Brighter in affect. Watching TV. Patient reports not having any concerns and feeling fine. Feeling safe and well cared for. Medication Compliance: Yes Side effects from medications: No Review of Systems Acute medical concerns: No Review of Systems Review of Systems unremarkable Mental Status Exam Mental Status Exam Patient Appearance: Appropriate Patient Orientation: Person, Place and Situation Level of Consciousness: Awake Patient Behavior: Appropriate and Cooperative Mood Description: Calm Affect Description: Blunted Patient Cognition Impaired: Yes Ability to Follow Directions: Fair Speech Pattern: Clear and Soft-Spoken 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: Retirement Impaired Diagnostics Vital Signs (24Hr): Vital Signs - 24 hr 11/08/23 20:00 Temperature 97.9 F Pulse Rate 91 Respiratory Rate 16 Blood Pressure 132/65 Pulse Oximetry 95 Oxygen Delivery Method Room Air BMI result Body Mass Index 31.8 Labs 09/10/23 20:00 11/07/23 08:26 Labs: Laboratory Results - last 48 hr 11/07/23 11/07/23 11/07/23 08:26 08:38 12:38 Creatinine 0.89 Estim Creat Clear Calc 102.9 Estimated GFR > 60 POC Glucose 102 193 H 11/07/23 11/07/23 11/08/23 17:27 21:33 08:31 Creatinine Estim Creat Clear Calc Estimated GFR POC Glucose 95 226 H 118 H 11/08/23 11/08/23 11/08/23 12:33 17:22 20:19 Creatinine Estim Creat Clear Calc Estimated GFR POC Glucose 172 H 197 H 181 H Imaging Radiology Impressions: ITS Impressions Brain MRI 09/19/23 20:33 IMPRESSION: 1. No demonstrated acute intracranial abnormalities. 2. Chronic mild to moderate nonspecific white matter changes, most notably in the deep white matter of the right frontal lobe. Mild to moderate generalized cerebral volume loss. Medications Medications Current Medications Acetaminophen (Acetaminophen 325 Mg Tablet) 650 mg PO Q6H PRN PRN Reason: Headache/Pain Mild Scale (1-3) Last Admin: 10/13/23 09:39 Dose: 650 mg Al Hydroxide/Mg Hydroxide (Magnesium Hydrox/Alum Hydrox 30 Ml Oral.Susp) 30 ml PO Q6H PRN PRN Reason: Heartburn/Nausea Aripiprazole (Aripiprazole 10 Mg Tablet) 10 mg PO BEDTIME MANAS Last Admin: 11/08/23 20:58 Dose: 10 mg Benztropine Mesylate (Benztropine Mesylate 0.5 Mg Tablet) 0.5 mg PO TID PRN PRN Reason: Extrapyramidal Effects Glucose (Glucose Gel 15 Gm Gel..Gram.) 15 gm PO Q15M PRN; Protocol PRN Reason: per Hypoglycemia Standing Ord. Hydroxyzine HCl (Hydroxyzine Hcl 25 Mg Tablet) 25 mg PO Q6H PRN PRN Reason: Anxiety Last Admin: 10/27/23 20:38 Dose: 25 mg Dextrose (D10) 250 mls @ 750 mls/hr IV Q15M PRN; Protocol PRN Reason: per Hypoglycemia Standing Ord. Insulin Glargine (Insulin Glargine,Hum.Rec.Anlog 100 Unit/Ml 10 Ml Vial) 20 unit SUBCUT BEDTIME [facility] Last Admin: 11/08/23 20:56 Dose: 20 unit Insulin Human Lispro (Insulin Lispro 100 Unit/Ml 3 Ml Vial) 0 unit SUBCUT QIDACHS [facility]; Protocol Last Admin: 11/08/23 20:56 Dose: 2 unit Lamotrigine (Lamotrigine 100 Mg Tablet) 100 mg PO BEDTIME [facility] Last Admin: 11/08/23 20:59 Dose: 100 mg Levothyroxine Sodium (Levothyroxine Sodium 200 Mcg Tablet) 200 mcg PO DAILY [facility] Last Admin: 11/08/23 09:09 Dose: 200 mcg Magnesium Hydroxide (Milk Of Magnesia 30 Ml Oral.Susp) 30 ml PO DAILY PRN PRN Reason: Constipation Memantine (Memantine Hcl 5 Mg Tablet) 5 mg PO BID [facility] Last Admin: 11/08/23 20:59 Dose: 5 mg Metformin HCl (Metformin Hcl Er 500 Mg Tab.Er.24h) 1,000 mg PO DAILY@1700 [facility] Last Admin: 11/08/23 17:42 Dose: 1,000 mg Nicotine Polacrilex (Nicotine Polacrilex 2 Mg Gum) 4 mg BUCCAL Q2H PRN PRN Reason: Nicotine Cravings Sertraline HCl (Sertraline Hcl 100 Mg Tablet) 100 mg PO DAILY [facility] Last Admin: 11/08/23 09:09 Dose: 100 mg Simethicone (Simethicone 80 Mg Tab.Chew) 80 mg PO QIDWMHS MANAS Last Admin: 11/08/23 20:58 Dose: 80 mg Trazodone HCl (Trazodone Hcl 50 Mg Tablet) 50 mg PO BEDTIME MRX1 PRN PRN Reason: Insomnia Last Admin: 11/08/23 20:59 Dose: 50 mg Allergies Allergies Allergy/AdvReac Type Severity Reaction Status Date / Time amoxicillin [AMOXICILLIN] Allergy Mild VOMITING/ABD Verified 09/10/23 19:44 PAIN Assessment & Plan Assessment & Plan (1) Schizoaffective disorder: Status: Acute Code(s): F25.9 - Schizoaffective disorder, unspecified (2) Hypothyroidism: Status: Acute Code(s): E03.9 - Hypothyroidism, unspecified (3) Type 2 diabetes mellitus: Status: Acute Code(s): E11.9 - Type 2 diabetes mellitus without complications Plan Patient is a 58 year old male with hx of Schizoaffective d/o and hypothyroid disorder/thyroid coma, stroke and brain aneurysm, who was brought to [facility] on a [address] 12 d/t disorganized behavior, concern for his memory impairment, medications noncompliance and poor ADLs. Plan: CV 15 minute safety checks Continue home medications: Haldol 10mg PO daily Synthroid 200mcg PO daily Obtain labs; A1C/POCs Obtain collateral from sister Obtain records from last hospitalization. MOCA Referral for [facility] services if patient is agreeable. encourage medication compliance;consider VARGAS discharge planning 09/11: Elevated fasting blood sugar elevated hemoglobin A1c 9.2 med consult placed put in point of care needed will start metformin Would benefit from clarity over recent hospitalization what this were done details regarding treatment continue Haldol unclear if patient has Healthcare proxy his [place] was low slowed cognition with poor details in depth at times during blankly regarding making judgments Unclear if any of this relates to past coma or 2 hypothyroidism. He does seem more impaired than when last seen unclear when last imaging was. Continue Haldol sitter neuro indira involvement regarding diagnostic picture. Patient does remain paranoid blunted suspicious apathetic. He might benefit from longer- term placement if available and appropriate at a later time involved [facility] involvement would be quite helpful 09/12: cont haldol get records ? hcp ? start antidep unclear hx 09/13: Keeping to self. More talkative today. Pt concerned he will be transferred to [facility]. Pt stated, The paper I signed yesterday. Are you going to send me back to the last hospital? That place was horrible . Pt was educated he signed a release of information with Dr. Gonzalez to obtain records from [facility]. Pt was given a copy of the release he signed. Despite this, pt continues to be anxious about being transferred. Pt denies SI/HI/VH/AH. 09/14: Keeping to self. active on unit. showered. Pt reports feeling alright today; pt reports he is worried about where I'm going to go . Pt continues concerned he will be transferred to [facility]. Pt denies SI/HI/VH/AH. 09/15:Pt reports feeling alright today; pt continues to report he is worried about where I'm going to go . Responding with brief responses. Guarded. Observed standing in one place for a long period of time. Appears confused. Pt denies SI/HI/VH/AH. T/W spoke to patient's sister, Ros, with patients verbal consent. Ros reports concerns regarding patients ability to make decisions regarding his mental and physical health. She plans on contacting legal advice on obtaining guardianship of patient. 09/16:Patient's presents similar to yesterday's presentation. Responding with brief responses. Guarded. Observed standing in one place for a long period of time, when asked what he is doing, pt stated, I don't know . Pt reports he plans on contacting his sister today and try to convince her for me to stay there . Pt denies SI/HI/VH/AH. Continue current tx plan. 09/17: brief responses. Guarded. 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 Pt denies SI/HI/VH/AH. T/W and Dr. Gonzalez spoke to patient's sister, Ros. Ros stated being [facility] HCP and plans on finding document. She plans on coming to the hospital on Saturday to be present for [facility] intake. 09/21: No changes 09/22:Patient flat apathetic difficult insight and judgment his sister is healthcare proxy if needed patient is accepting medical treatment Referral to [facility] 09/23:Considers starting Haldol Decanoate patient is agreeable superficially difficulty with exec fx was seen [facility] 09/24:Pt seen in f/u mood flat dysphoric difficulty engaging in conversation preoccupied with thought he wont be living with family thing slowed apathetic no clear response with namenda ? some improvement inc lamictal start low dose sertraline inc lamictal ck tsh 09/25:Start Abilify as augmentation with Haldol see if can be more stimulating regarding depressed mood apathetic limited engagement sertraline 50 mg Lamictal 25 b.i.d. referral to [facility] which would have structure unclear if patient can engage with this he remains quite depressed has delusional beliefs regarding housing and that things have been done he has repeatedly tried to reach out to his sister denies active SI needs much help dressing talking with others encouragement to eat severe thought blocking Abilify might be more stimulating than Haldol which can be more dulling 09/26:Abilify started sertraline Lamictal encouraged step-down to [facility] encourage reality orientation denies active SI 09/27: Continue current regimen and plans 09/28: Continue current regimen and plans. 09/29: Referral to [facility] increase Abilify to 5 mg daily eventually try and taper Haldol sertraline 50 mg daily 09/30:Increase Abilify to 10 mg lower Haldol to 7 mg continue sertraline and Lamictal 10/01:Abilify increased to 10 mg continue to taper Haldol sertraline 100 mg Lamictal increased to 75 mg patient apathetic withdrawn difficulty with placement some paranoia continues difficulty with decision making at times. Not physically aggressive internally preoccupied seems somewhat improved with Abilify sertraline Continue discharge planning 10/02:Patient somewhat blunted flat slowed thinking during the day times staring. Change Abilify to 10 mg at bedtime. Scheduled Haldol will lowered to 2.5 mg Continue sertraline 100 mg Namenda 5 b.i.d. 10/03:Haldol discontinued modafinil low-dose monitor for psychosis or agitation continue discharge planning 10/06: May need to firm healthcare proxy calls have been placed to sister to try to help in discharge planning. Referrals made. Patient cooperative with care 10/07:Pharmacy ordering Abilify maintain a increase modafinil 100 mg patient remains flat passive depressed some improvement noted no current paranoia noted continue discharge planning no current safe discharge plan 10/08: Increase Lamictal 100 mg Abilify Maintena 400 mg hold modafinil unclear if was overly stimulating patient continues to present internally preoccupied. 10/09:Healthcare proxy invoked discharge planning continue Lamictal Abilify pending maintain a 10/10:Healthcare proxy invoked new CV signed discharge planning. 10/11 keep same treatment 10/12 keep same treatment 10/13: Continue plan of care Lamictal Abilify discharge planning sertraline 10/14: stable. continue current mgmt. 10/15: stable. continue current mgmt. 10/16: stable presentation. continue current mgmt. 10/17: as for yesterday. 10/18: no changes. 10/19: stabel, safe. no change. 10/20: no change in presentation. calm, cooperative. active on unit, social with select peers, attending groups. Pt reports feeling alright . denies SI/HI/VH/AH. Social work waiting to hear from possible placement location. Continue current tx plan. 10/21: continue current tx plan. awaiting placement. 10/22: calm, cooperative. active on unit, social with select peers, attending groups. Pt reports feeling good ; pt stated, I'm waiting to see where I'm going . denies SI/HI/VH/AH. Showered with encouragement. 10/23: continue current tx plan. 10/24: calm, cooperative. active on unit, social with select peers, attending groups. Pt reports feeling good ; pt stated, I just want a place to live . 10/25- likely at baseline for him- CTP 10/26 CTP likely needs placement 10/27: continue current tx plan. awaiting placement. 10/28: Similar to yesterday. No change in presentation. 10/29: Pt reports feeling good ;pt stated, just waiting for a place to live . denies any issues at this time. 10/30: calm, cooperative. active on unit, social with select peers, attending groups. Pt reports feeling worried about where I am going to live . denies any issues at this time. 10/21: no change in presentation. continue current tx plan. 11/01: continue current management and treatment plan. 11/02: Continue current management and treatment plan. 11/03: Continue current management and treatment plan. 11/04: Active on unit. calm, cooperative. social with select peers, attending groups. denies any issues at this time. He reports sleeping well. Pt reports he would be interested in applying for [facility] services; social work aware. 11/05: Active on unit. calm, cooperative. social with select peers, attending groups. denies any issues at this time. Pt reports feeling okay ; he reports anxiety regarding placement. Continue current tx plan. 11/07/23 DM referral has appropriate concerns re living stuation cont abilify lamictal 11/08: no changes Reason for continued inpatient stay Substantial Risk for: rapid decompensation Time Spent With Patient Time: Total time managing care of this patient today ____ minutes.
[2023-11-09 09:11] LABS: Glucose, Whole Blood 106 mg/dL (60-115)
[2023-11-09] MEDS: Levothyroxine Sodium 200 MCG TABLET PO (09:29)
[2023-11-09] MEDS: Simethicone 80 MG TAB.CHEW PO ×4 (09:29→20:49)
[2023-11-09] MEDS: Sertraline HCL 100 MG TABLET PO (09:29)
[2023-11-09] MEDS: Memantine HCl 5 MG TABLET PO ×2 (09:29→20:49)
[2023-11-09] MEDS: Insulin Lispro 100 UNIT/ML 3 ML VIAL SUBCUT ×2 (12:49→20:49)
[2023-11-09 12:53] LABS: Glucose, Whole Blood 195 mg/dL (60-115)
[2023-11-09 17:54] LABS: Glucose, Whole Blood 111 mg/dL (60-115)
[2023-11-09] MEDS: metFORMIN HCl ER 500 MG TAB.ER.24H 1000 MG PO (17:56)
[2023-11-09 20:00] VITALS: BP 133/70; PULSE 94; RESP 18; TEMP 36.9; O2SAT 95
[2023-11-09 20:40] LABS: Glucose, Whole Blood 202 mg/dL (60-115)
[2023-11-09] MEDS: Insulin Glargine,Hum.rec.anlog 100 UNIT/ML 10 ML VIAL 20 UNIT SUBCUT (20:48)
[2023-11-09] MEDS: traZODone HCL 50 MG TABLET PO (20:49)
[2023-11-09] MEDS: lamoTRIgine 100 MG TABLET PO (20:49)
[2023-11-09] MEDS: ARIPiprazole 10 MG TABLET PO (20:49)
[2023-11-10 08:00] VITALS: BP 122/75; PULSE 81; RESP 16; TEMP 36.4; O2SAT 97
--- NOTE | 2023-11-10 08:11 | HO.PSYCHPN ---
Subjective Subjective Date of Service: 11/10/23 Reason For Visit: paranoia cognitive impairment Medical Problems Affecting Mental Status: No Interim History: Met with patient. In the milieu. Brighter affect. Patient reports not having any concerns and feeling fine. Feeling safe and well cared for. Medication Compliance: Yes Side effects from medications: No Attending Groups: Intermittent Review of Systems Acute medical concerns: No Review of Systems Review of Systems unremarkable Mental Status Exam Mental Status Exam Patient Appearance: Appropriate Patient Orientation: Person, Place and Situation Level of Consciousness: Awake Patient Behavior: Appropriate and Cooperative Mood Description: Calm Affect Description: Blunted Patient Cognition Impaired: Yes Ability to Follow Directions: Fair Speech Pattern: Clear and Soft-Spoken 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: Senior Care Impaired Diagnostics Vital Signs (24Hr): Vital Signs - 24 hr 11/09/23 20:00 Temperature 98.4 F Pulse Rate 94 Respiratory Rate 18 Blood Pressure 133/70 Pulse Oximetry 95 Oxygen Delivery Method Room Air BMI result Body Mass Index 31.8 Labs 09/10/23 20:00 11/07/23 08:26 Labs: Laboratory Results - last 48 hr 11/08/23 11/08/23 11/08/23 08:31 12:33 17:22 POC Glucose 118 H 172 H 197 H 11/08/23 11/09/23 11/09/23 20:19 08:24 12:38 POC Glucose 181 H 106 195 H 11/09/23 11/09/23 17:42 20:37 POC Glucose 111 202 H Imaging Radiology Impressions: ITS Impressions Brain MRI 09/19/23 20:33 IMPRESSION: 1. No demonstrated acute intracranial abnormalities. 2. Chronic mild to moderate nonspecific white matter changes, most notably in the deep white matter of the right frontal lobe. Mild to moderate generalized cerebral volume loss. Medications Medications Current Medications Acetaminophen (Acetaminophen 325 Mg Tablet) 650 mg PO Q6H PRN PRN Reason: Headache/Pain Mild Scale (1-3) Last Admin: 10/13/23 09:39 Dose: 650 mg Al Hydroxide/Mg Hydroxide (Magnesium Hydrox/Alum Hydrox 30 Ml Oral.Susp) 30 ml PO Q6H PRN PRN Reason: Heartburn/Nausea Aripiprazole (Aripiprazole 10 Mg Tablet) 10 mg PO BEDTIME MANAS Last Admin: 11/09/23 20:49 Dose: 10 mg Benztropine Mesylate (Benztropine Mesylate 0.5 Mg Tablet) 0.5 mg PO TID PRN PRN Reason: Extrapyramidal Effects Glucose (Glucose Gel 15 Gm Gel..Gram.) 15 gm PO Q15M PRN; Protocol PRN Reason: per Hypoglycemia Standing Ord. Hydroxyzine HCl (Hydroxyzine Hcl 25 Mg Tablet) 25 mg PO Q6H PRN PRN Reason: Anxiety Last Admin: 10/27/23 20:38 Dose: 25 mg Dextrose (D10) 250 mls @ 750 mls/hr IV Q15M PRN; Protocol PRN Reason: per Hypoglycemia Standing Ord. Insulin Glargine (Insulin Glargine,Hum.Rec.Anlog 100 Unit/Ml 10 Ml Vial) 20 unit SUBCUT BEDTIME [facility] Last Admin: 11/09/23 20:48 Dose: 20 unit Insulin Human Lispro (Insulin Lispro 100 Unit/Ml 3 Ml Vial) 0 unit SUBCUT QIDACHS [facility]; Protocol Last Admin: 11/09/23 20:49 Dose: 4 unit Lamotrigine (Lamotrigine 100 Mg Tablet) 100 mg PO BEDTIME [facility] Last Admin: 11/09/23 20:49 Dose: 100 mg Levothyroxine Sodium (Levothyroxine Sodium 200 Mcg Tablet) 200 mcg PO DAILY [facility] Last Admin: 11/09/23 09:29 Dose: 200 mcg Magnesium Hydroxide (Milk Of Magnesia 30 Ml Oral.Susp) 30 ml PO DAILY PRN PRN Reason: Constipation Memantine (Memantine Hcl 5 Mg Tablet) 5 mg PO BID [facility] Last Admin: 11/09/23 20:49 Dose: 5 mg Metformin HCl (Metformin Hcl Er 500 Mg Tab.Er.24h) 1,000 mg PO DAILY@1700 [facility] Last Admin: 11/09/23 17:56 Dose: 1,000 mg Nicotine Polacrilex (Nicotine Polacrilex 2 Mg Gum) 4 mg BUCCAL Q2H PRN PRN Reason: Nicotine Cravings Sertraline HCl (Sertraline Hcl 100 Mg Tablet) 100 mg PO DAILY [facility] Last Admin: 11/09/23 09:29 Dose: 100 mg Simethicone (Simethicone 80 Mg Tab.Chew) 80 mg PO QIDWMHS [facility] Last Admin: 11/09/23 20:49 Dose: 80 mg Trazodone HCl (Trazodone Hcl 50 Mg Tablet) 50 mg PO BEDTIME MRX1 PRN PRN Reason: Insomnia Last Admin: 11/09/23 20:49 Dose: 50 mg Allergies Allergies Allergy/AdvReac Type Severity Reaction Status Date / Time amoxicillin [AMOXICILLIN] Allergy Mild VOMITING/ABD Verified 09/10/23 19:44 PAIN Assessment & Plan Assessment & Plan (1) Schizoaffective disorder: Status: Acute Code(s): F25.9 - Schizoaffective disorder, unspecified (2) Hypothyroidism: Status: Acute Code(s): E03.9 - Hypothyroidism, unspecified (3) Type 2 diabetes mellitus: Status: Acute Code(s): E11.9 - Type 2 diabetes mellitus without complications Plan Patient is a 58 year old male with hx of Schizoaffective d/o and hypothyroid disorder/thyroid coma, stroke and brain aneurysm, who was [place] [facility] [place] 12 d/t disorganized behavior, concern for his memory impairment, medications noncompliance and poor ADLs. Plan: CV 15 minute safety checks Continue home medications: Haldol 10mg PO daily Synthroid 200mcg PO daily Obtain labs; A1C/POCs Obtain collateral from sister Obtain records from last hospitalization. MOCA Referral for [facility]H services if patient is agreeable. encourage medication compliance;consider VARGAS discharge planning 09/11: Elevated fasting blood sugar elevated hemoglobin A1c 9.2 med consult placed put in point of care needed will start metformin Would benefit from clarity over recent hospitalization what this were done details regarding treatment continue Haldol unclear if patient has Healthcare proxy his [place] was low slowed cognition with poor details in depth at times during blankly regarding making judgments Unclear if any of this relates to past coma or 2 hypothyroidism. He does seem more impaired than when last seen unclear when last imaging was. Continue Haldol sitter neuro indira involvement regarding diagnostic picture. Patient does remain paranoid blunted suspicious apathetic. He might benefit from longer-term placement if available and appropriate at a later time involved [facility] involvement would be quite helpful 09/12: cont haldol get records ? hcp ? start antidep unclear hx 09/13: Keeping to self. More talkative today. Pt concerned he will be transferred to [facility]. Pt stated, The paper I signed yesterday. Are you going to send me back to the last hospital? That place was horrible . Pt was educated he signed a release of information with Dr. Gonzalez to obtain records from [facility]. Pt was given a copy of the release he signed. Despite this, pt continues to be anxious about being transferred. Pt denies SI/HI/VH/AH. 09/14: Keeping to self. active on unit. showered. Pt reports feeling alright today; pt reports he is worried about where I'm going to go . Pt continues concerned he will be transferred to [facility]. Pt denies SI/HI/VH/AH. 09/15:Pt reports feeling alright today; pt continues to report he is worried about where I'm going to go . Responding with brief responses. Guarded. Observed standing in one place for a long period of time. Appears confused. Pt denies SI/HI/VH/AH. T/W spoke to patient's sister, Ros, with patients verbal consent. Ros reports concerns regarding patients ability to make decisions regarding his mental and physical health. She plans on contacting legal advice on obtaining guardianship of patient. 09/16:Patient's presents similar to yesterday's presentation. Responding with brief responses. Guarded. Observed standing in one place for a long period of time, when asked what he is doing, pt stated, I don't know . Pt reports he plans on contacting his sister today and try to convince her for me to stay there . Pt denies SI/HI/VH/AH. Continue current tx plan. 09/17: brief responses. Guarded. 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 Pt denies SI/HI/VH/AH. T/W and Dr. Gonzlaez spoke to patient's sister, Ros. Ros stated being [facility] HCP and plans on finding document. She plans on coming to the hospital on Saturday to be present for [facility] intake. 09/21: No changes 09/22:Patient flat apathetic difficult insight and judgment his sister is healthcare proxy if needed patient is accepting medical treatment Referral to [facility] 09/23:Considers starting Haldol Decanoate patient is agreeable superficially difficulty with exec fx was seen [facility] 09/24:Pt seen in f/u mood flat dysphoric difficulty engaging in conversation preoccupied with thought he wont be living with family thing slowed apathetic no clear response with namenda ? some improvement inc lamictal start low dose sertraline inc lamictal ck tsh 09/25:Start Abilify as augmentation with Haldol see if can be more stimulating regarding depressed mood apathetic limited engagement sertraline 50 mg Lamictal 25 b.i.d. referral to [facility] which would have structure unclear if patient can engage with this he remains quite depressed has delusional beliefs regarding housing and that things have been done he has repeatedly tried to reach out to his sister denies active SI needs much help dressing talking with others encouragement to eat severe thought blocking Abilify might be more stimulating than Haldol which can be more dulling 09/26:Abilify started sertraline Lamictal encouraged step-down to [facility] encourage reality orientation denies active SI 09/27: Continue current regimen and plans 09/28: Continue current regimen and plans. 09/29: Referral to [facility] increase Abilify to 5 mg daily eventually try and taper Haldol sertraline 50 mg daily 09/30:Increase Abilify to 10 mg lower Haldol to 7 mg continue sertraline and Lamictal 10/01:Abilify increased to 10 mg continue to taper Haldol sertraline 100 mg Lamictal increased to 75 mg patient apathetic withdrawn difficulty with placement some paranoia continues difficulty with decision making at times. Not physically aggressive internally preoccupied seems somewhat improved with Abilify sertraline Continue discharge planning 10/02:Patient somewhat blunted flat slowed thinking during the day times staring. Change Abilify to 10 mg at bedtime. Scheduled Haldol will lowered to 2.5 mg Continue sertraline 100 mg Namenda 5 b.i.d. 10/03:Haldol discontinued modafinil low-dose monitor for psychosis or agitation continue discharge planning 10/06: May need to firm healthcare proxy calls have been placed to sister to try to help in discharge planning. Referrals made. Patient cooperative with care 10/07:Pharmacy ordering Abilify maintain a increase modafinil 100 mg patient remains flat passive depressed some improvement noted no current paranoia noted continue discharge planning no current safe discharge plan 10/08: Increase Lamictal 100 mg Abilify Maintena 400 mg hold modafinil unclear if was overly stimulating patient continues to present internally preoccupied. 10/09:Healthcare proxy invoked discharge planning continue Lamictal Abilify pending maintain a 10/10:Healthcare proxy invoked new CV signed discharge planning. 10/11 keep same treatment 10/12 keep same treatment 10/13: Continue plan of care Lamictal Abilify discharge planning sertraline 10/14: stable. continue current mgmt. 10/15: stable. continue current mgmt. 10/16: stable presentation. continue current mgmt. 10/17: as for yesterday. 10/18: no changes. 10/19: stabel, safe. no change. 10/20: no change in presentation. calm, cooperative. active on unit, social with select peers, attending groups. Pt reports feeling alright . denies SI/HI/VH/AH. Social work waiting to hear from possible placement location. Continue current tx plan. 10/21: continue current tx plan. awaiting placement. 10/22: calm, cooperative. active on unit, social with select peers, attending groups. Pt reports feeling good ; pt stated, I'm waiting to see where I'm going . denies SI/HI/VH/AH. Showered with encouragement. 10/23: continue current tx plan. 10/24: calm, cooperative. active on unit, social with select peers, attending groups. Pt reports feeling good ; pt stated, I just want a place to live . 10/25- likely at baseline for him- CTP 10/26 CTP likely needs placement 10/27: continue current tx plan. awaiting placement. 10/28: Similar to yesterday. No change in presentation. 10/29: Pt reports feeling good ;pt stated, just waiting for a place to live . denies any issues at this time. 10/30: calm, cooperative. active on unit, social with select peers, attending groups. Pt reports feeling worried about where I am going to live . denies any issues at this time. 10/21: no change in presentation. continue current tx plan. 11/01: continue current management and treatment plan. 11/02: Continue current management and treatment plan. 11/03: Continue current management and treatment plan. 11/04: Active on unit. calm, cooperative. social with select peers, attending groups. denies any issues at this time. He reports sleeping well. Pt reports he would be interested in applying for [facility] services; social work aware. 11/05: Active on unit. calm, cooperative. social with select peers, attending groups. denies any issues at this time. Pt reports feeling okay ; he reports anxiety regarding placement. Continue current tx plan. 11/07/23 DM referral has appropriate concerns re living stuation cont abilify lamictal 11/09: no changes Reason for continued inpatient stay Substantial Risk for: rapid decompensation Time Spent With Patient Time: Total time managing care of this patient today ____ minutes.
[2023-11-10] MEDS: Memantine HCl 5 MG TABLET PO ×2 (08:39→20:29)
[2023-11-10] MEDS: Simethicone 80 MG TAB.CHEW PO ×4 (08:39→20:29)
[2023-11-10] MEDS: Levothyroxine Sodium 200 MCG TABLET PO (08:39)
[2023-11-10] MEDS: Sertraline HCL 100 MG TABLET PO (08:39)
[2023-11-10 08:43] LABS: Glucose, Whole Blood 106 mg/dL (60-115)
[2023-11-10 12:33] LABS: Glucose, Whole Blood 178 mg/dL (60-115)
[2023-11-10] MEDS: Insulin Lispro 100 UNIT/ML 3 ML VIAL SUBCUT ×2 (13:09→20:28)
[2023-11-10 17:44] LABS: Glucose, Whole Blood 147 mg/dL (60-115)
[2023-11-10] MEDS: metFORMIN HCl ER 500 MG TAB.ER.24H 1000 MG PO (17:57)
[2023-11-10 20:00] VITALS: BP 127/63; PULSE 88; RESP 18; TEMP 36.6; O2SAT 97
[2023-11-10 20:28] LABS: Glucose, Whole Blood 156 mg/dL (60-115)
[2023-11-10] MEDS: Insulin Glargine,Hum.rec.anlog 100 UNIT/ML 10 ML VIAL 20 UNIT SUBCUT (20:29)
[2023-11-10] MEDS: ARIPiprazole 10 MG TABLET PO (20:29)
[2023-11-10] MEDS: lamoTRIgine 100 MG TABLET PO (20:29)
[2023-11-10] MEDS: traZODone HCL 50 MG TABLET PO (20:29)
[2023-11-11 08:00] VITALS: BP 136/71; PULSE 87; RESP 16; TEMP 36.5; O2SAT 97
[2023-11-11] MEDS: Levothyroxine Sodium 200 MCG TABLET PO (08:33)
[2023-11-11] MEDS: Simethicone 80 MG TAB.CHEW PO ×4 (08:33→21:14)
[2023-11-11] MEDS: Memantine HCl 5 MG TABLET PO ×2 (08:33→21:14)
[2023-11-11] MEDS: Sertraline HCL 100 MG TABLET PO (08:33)
[2023-11-11 08:35] LABS: Glucose, Whole Blood 109 mg/dL (60-115)
[2023-11-11 12:45] LABS: Glucose, Whole Blood 188 mg/dL (60-115)
[2023-11-11] MEDS: Insulin Lispro 100 UNIT/ML 3 ML VIAL SUBCUT ×2 (12:50→17:57)
[2023-11-11 17:45] LABS: Glucose, Whole Blood 152 mg/dL (60-115)
[2023-11-11] MEDS: metFORMIN HCl ER 500 MG TAB.ER.24H 1000 MG PO (17:58)
[2023-11-11 20:00] VITALS: BP 133/74; PULSE 89; RESP 16; TEMP 37.1; O2SAT 97
[2023-11-11 21:04] LABS: Glucose, Whole Blood 140 mg/dL (60-115)
[2023-11-11] MEDS: ARIPiprazole 10 MG TABLET PO (21:14)
[2023-11-11] MEDS: Insulin Glargine,Hum.rec.anlog 100 UNIT/ML 10 ML VIAL 20 UNIT SUBCUT (21:14)
[2023-11-11] MEDS: lamoTRIgine 100 MG TABLET PO (21:15)
--- NOTE | 2023-11-11 22:06 | HO.PSYCHPN ---
Subjective Subjective Date of Service: 11/11/23 Reason For Visit: paranoia cognitive impairment Medical Problems Affecting Mental Status: Yes (past brain injury) Interim History: Met with patient. Patient flat cooperative apathetic goes to the emotions in the milieu needs direction. 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 No demonstrated acute intracranial abnormalities. 2. Chronic mild to moderate nonspecific white matter changes, most notably in the deep white matter of the right frontal lobe. Mild to moderate generalized cerebral volume loss. Medications Medications Current Medications Acetaminophen (Acetaminophen 325 Mg Tablet) 650 mg PO Q6H PRN PRN Reason: Headache/Pain Mild Scale (1-3) Last Admin: 10/13/23 09:39 Dose: 650 mg Al Hydroxide/Mg Hydroxide (Magnesium Hydrox/Alum Hydrox 30 Ml Oral.Susp) 30 ml PO Q6H PRN PRN Reason: Heartburn/Nausea Aripiprazole (Aripiprazole 10 Mg Tablet) 10 mg PO BEDTIME MANAS Last Admin: 11/11/23 21:14 Dose: 10 mg Benztropine Mesylate (Benztropine Mesylate 0.5 Mg Tablet) 0.5 mg PO TID PRN PRN Reason: Extrapyramidal Effects Glucose (Glucose Gel 15 Gm Gel..Gram.) 15 gm PO Q15M PRN; Protocol PRN Reason: per Hypoglycemia Standing Ord. Hydroxyzine HCl (Hydroxyzine Hcl 25 Mg Tablet) 25 mg PO Q6H PRN PRN Reason: Anxiety Last Admin: 10/27/23 20:38 Dose: 25 mg Dextrose (D10) 250 mls @ 750 mls/hr IV Q15M PRN; Protocol PRN Reason: per Hypoglycemia Standing Ord. Insulin Glargine (Insulin Glargine,Hum.Rec.Anlog 100 Unit/Ml 10 Ml Vial) 20 unit SUBCUT BEDTIME PENDING SALE TO [facility] Last Admin: 11/11/23 21:14 Dose: 20 unit Insulin Human Lispro (Insulin Lispro 100 Unit/Ml 3 Ml Vial) 0 unit SUBCUT QIDACHS PENDING SALE TO [facility]; Protocol Last Admin: 11/11/23 17:57 Dose: 2 unit Lamotrigine (Lamotrigine 100 Mg Tablet) 100 mg PO BEDTIME PENDING SALE TO [facility] Last Admin: 11/11/23 21:15 Dose: 100 mg Levothyroxine Sodium (Levothyroxine Sodium 200 Mcg Tablet) 200 mcg PO DAILY PENDING SALE TO [facility] Last Admin: 11/11/23 08:33 Dose: 200 mcg Magnesium Hydroxide (Milk Of Magnesia 30 Ml Oral.Susp) 30 ml PO DAILY PRN PRN Reason: Constipation Memantine (Memantine Hcl 5 Mg Tablet) 5 mg PO BID PENDING SALE TO [facility] Last Admin: 11/11/23 21:14 Dose: 5 mg Metformin HCl (Metformin Hcl Er 500 Mg Tab.Er.24h) 1,000 mg PO DAILY@1700 PENDING SALE TO [facility] Last Admin: 11/11/23 17:58 Dose: 1,000 mg Nicotine Polacrilex (Nicotine Polacrilex 2 Mg Gum) 4 mg BUCCAL Q2H PRN PRN Reason: Nicotine Cravings Sertraline HCl (Sertraline Hcl 100 Mg Tablet) 100 mg PO DAILY PENDING SALE TO [facility] Last Admin: 11/11/23 08:33 Dose: 100 mg Simethicone (Simethicone 80 Mg Tab.Chew) 80 mg PO QIDWMHS PENDING SALE TO [facility] Last Admin: 11/11/23 21:14 Dose: 80 mg Trazodone HCl (Trazodone Hcl 50 Mg Tablet) 50 mg PO BEDTIME MRX1 PRN PRN Reason: Insomnia Last Admin: 11/10/23 20:29 Dose: 50 mg Allergies Allergies Allergy/AdvReac Type Severity Reaction Status Date / Time amoxicillin [AMOXICILLIN] Allergy Mild VOMITING/ABD Verified 09/10/23 19:44 PAIN Assessment & Plan Assessment & Plan (1) Schizoaffective disorder: Status: Acute Code(s): F25.9 - Schizoaffective disorder, unspecified (2) Hypothyroidism: Status: Acute Code(s): E03.9 - Hypothyroidism, unspecified (3) Type 2 diabetes mellitus: Status: Acute Code(s): E11.9 - Type 2 diabetes mellitus without complications (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 Plan: CV 15 minute safety checks Continue home medications: Haldol 10mg PO daily Synthroid 200mcg PO daily Obtain labs; A1C/POCs Obtain collateral from sister Obtain records from last hospitalization. MOCA Referral for [facility] services if patient is agreeable. encourage medication compliance;consider [facility]AS discharge planning 09/11: Elevated fasting blood sugar elevated hemoglobin A1c 9.2 med consult placed put in point of care needed will start metformin Would benefit from clarity over recent hospitalization what this were done details regarding treatment continue Haldol unclear if patient has Healthcare proxy his [place] was low slowed cognition with poor details in depth at times during blankly regarding making judgments Unclear if any of this relates to past coma or 2 hypothyroidism. He does seem more impaired than when last seen unclear when last imaging was. Continue Haldol sitter neuro indira involvement regarding diagnostic picture. Patient does remain paranoid blunted suspicious apathetic. He might benefit from longer-term placement if available and appropriate at a later time involved [facility] involvement would be quite helpful 09/12: cont haldol get records ? hcp ? start antidep unclear hx 09/13: Keeping to self. More talkative today. Pt concerned he will be transferred to [facility]. Pt stated, The paper I signed yesterday. Are you going to send me back to the last hospital? That place was horrible . Pt was educated he signed a release of information with Dr. Gonzalez to obtain records from [facility]. Pt was given a copy of the release he signed. Despite this, pt continues to be anxious about being transferred. Pt denies SI/HI/VH/AH. 09/14: Keeping to self. active on unit. showered. Pt reports feeling alright today; pt reports he is worried about where I'm going to go . Pt continues concerned he will be transferred to [facility]. Pt denies SI/HI/VH/AH. 09/15:Pt reports feeling alright today; pt continues to report he is worried about where I'm going to go . Responding with brief responses. Guarded. Observed standing in one place for a long period of time. Appears confused. Pt denies SI/HI/VH/AH. T/W spoke to patient's sister, Ros, with patients verbal consent. Ros reports concerns regarding patients ability to make decisions regarding his mental and physical health. She plans on contacting legal advice on obtaining guardianship of patient. 09/16:Patient's presents similar to yesterday's presentation. Responding with brief responses. Guarded. Observed standing in one place for a long period of time, when asked what he is doing, pt stated, I don't know . Pt reports he plans on contacting his sister today and try to convince her for me to stay there . Pt denies SI/HI/VH/AH. Continue current tx plan. 09/17: brief responses. Guarded. 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 Pt denies SI/HI/VH/AH. T/W and Dr. Gonzalez spoke to patient's sister, Ros. Ros stated being [facility] HCP and plans on finding document. She plans on coming to the hospital on Saturday to be present for [facility] intake. 09/21: No changes 09/22:Patient flat apathetic difficult insight and judgment his sister is healthcare proxy if needed patient is accepting medical treatment Referral to [facility] 09/23:Considers starting Haldol Decanoate patient is agreeable superficially difficulty with exec fx was seen [facility] 09/24:Pt seen in f/u mood flat dysphoric difficulty engaging in conversation preoccupied with thought he wont be living with family thing slowed apathetic no clear response with namenda ? some improvement inc lamictal start low dose sertraline inc lamictal ck tsh 09/25:Start Abilify as augmentation with Haldol see if can be more stimulating regarding depressed mood apathetic limited engagement sertraline 50 mg Lamictal 25 b.i.d. referral to [facility] which would have structure unclear if patient can engage with this he remains quite depressed has delusional beliefs regarding housing and that things have been done he has repeatedly tried to reach out to his sister denies active SI needs much help dressing talking with others encouragement to eat severe thought blocking Abilify might be more stimulating than Haldol which can be more dulling 09/26:Abilify started sertraline Lamictal encouraged step-down to [facility] encourage reality orientation denies active SI 09/27: Continue current regimen and plans 09/28: Continue current regimen and plans. 09/29: Referral to [facility] increase Abilify to 5 mg daily eventually try and taper Haldol sertraline 50 mg daily 09/30:Increase Abilify to 10 mg lower Haldol to 7 mg continue sertraline and Lamictal 10/01:Abilify increased to 10 mg continue to taper Haldol sertraline 100 mg Lamictal increased to 75 mg patient apathetic withdrawn difficulty with placement some paranoia continues difficulty with decision making at times. Not physically aggressive internally preoccupied seems somewhat improved with Abilify sertraline Continue discharge planning 10/02:Patient somewhat blunted flat slowed thinking during the day times staring. Change Abilify to 10 mg at bedtime. Scheduled Haldol will lowered to 2.5 mg Continue sertraline 100 mg Namenda 5 b.i.d. 10/03:Haldol discontinued modafinil low-dose monitor for psychosis or agitation continue discharge planning 10/06: May need to firm healthcare proxy calls have been placed to sister to try to help in discharge planning. Referrals made. Patient cooperative with care 10/07:Pharmacy ordering Abilify maintain a increase modafinil 100 mg patient remains flat passive depressed some improvement noted no current paranoia noted continue discharge planning no current safe discharge plan 10/08: Increase Lamictal 100 mg Abilify Maintena 400 mg hold modafinil unclear if was overly stimulating patient continues to present internally preoccupied. 10/09:Healthcare proxy invoked discharge planning continue Lamictal Abilify pending maintain a 10/10:Healthcare proxy invoked new CV signed discharge planning. 10/11 keep same treatment 10/12 keep same treatment 10/13: Continue plan of care Lamictal Abilify discharge planning sertraline 10/14: stable. continue current mgmt. 10/15: stable. continue current mgmt. 10/16: stable presentation. continue current mgmt. 10/17: as for yesterday. 10/18: no changes. 10/19: stabel, safe. no change. 10/20: no change in presentation. calm, cooperative. active on unit, social with select peers, attending groups. Pt reports feeling alright . denies SI/HI/VH/AH. Social work waiting to hear from possible placement location. Continue current tx plan. 10/21: continue current tx plan. awaiting placement. 10/22: calm, cooperative. active on unit, social with select peers, attending groups. Pt reports feeling good ; pt stated, I'm waiting to see where I'm going . denies SI/HI/VH/AH. Showered with encouragement. 10/23: continue current tx plan. 10/24: calm, cooperative. active on unit, social with select peers, attending groups. Pt reports feeling good ; pt stated, I just want a place to live . 10/25- likely at baseline for him- CTP 10/26 CTP likely needs placement 10/27: continue current tx plan. awaiting placement. 10/28: Similar to yesterday. No change in presentation. 10/29: Pt reports feeling good ;pt stated, just waiting for a place to live . denies any issues at this time. 10/30: calm, cooperative. active on unit, social with select peers, attending groups. Pt reports feeling worried about where I am going to live . denies any issues at this time. 10/21: no change in presentation. continue current tx plan. 11/01: continue current management and treatment plan. 11/02: Continue current management and treatment plan. 11/03: Continue current management and treatment plan. 11/04: Active on unit. calm, cooperative. social with select peers, attending groups. denies any issues at this time. He reports sleeping well. Pt reports he would be interested in applying for [facility] services; social work aware. 11/05: Active on unit. calm, cooperative. social with select peers, attending groups. denies any issues at this time. Pt reports feeling okay ; he reports anxiety regarding placement. Continue current tx plan. 11/07/23 [facility] referral has appropriate concerns re living stuation cont abilify lamictal 11/08/23 Pt cooperative with care d/c planning working with cont d/c planning cont lamictal abilify 11/12/23 Patient increasingly despairing aware of no clear discharge plan periods needs cuing for much functioning limited social engaged needs help regarding diabetes and medication compliance reportedly had been rejected by multiple rest homes patient not threatening intermittently hopeless helpless very limited family contact at this time Reason for continued inpatient stay Substantial Risk for: inability to function, rapid decompensation and med/psych decompensation Time Spent With Patient Time: Total time managing care of this patient today ____ minutes.
[2023-11-12 08:00] VITALS: BP 126/68; PULSE 77; RESP 16; TEMP 36.4; O2SAT 97
[2023-11-12] MEDS: Levothyroxine Sodium 200 MCG TABLET PO (08:34)
[2023-11-12] MEDS: Memantine HCl 5 MG TABLET PO ×2 (08:34→21:17)
[2023-11-12] MEDS: Sertraline HCL 100 MG TABLET PO (08:35)
[2023-11-12] MEDS: Simethicone 80 MG TAB.CHEW PO ×4 (08:37→21:17)
[2023-11-12 08:39] LABS: Glucose, Whole Blood 133 mg/dL (60-115)
[2023-11-12 12:48] LABS: Glucose, Whole Blood 159 mg/dL (60-115)
[2023-11-12] MEDS: Insulin Lispro 100 UNIT/ML 3 ML VIAL SUBCUT (12:50)
[2023-11-12] MEDS: metFORMIN HCl ER 500 MG TAB.ER.24H 1000 MG PO (17:03)
[2023-11-12 17:59] LABS: Glucose, Whole Blood 128 mg/dL (60-115)
[2023-11-12 20:00] VITALS: BP 135/79; PULSE 96; RESP 18; TEMP 36.8; O2SAT 98
[2023-11-12 20:42] LABS: Glucose, Whole Blood 149 mg/dL (60-115)
[2023-11-12] MEDS: ARIPiprazole 10 MG TABLET PO (21:17)
[2023-11-12] MEDS: lamoTRIgine 100 MG TABLET PO (21:17)
[2023-11-12] MEDS: Insulin Glargine,Hum.rec.anlog 100 UNIT/ML 10 ML VIAL 20 UNIT SUBCUT (21:19)
[2023-11-13 07:54] VITALS: BP 134/84; PULSE 74; RESP 16; TEMP 36.7; O2SAT 96
[2023-11-13] MEDS: Levothyroxine Sodium 200 MCG TABLET PO (08:41)
[2023-11-13] MEDS: Sertraline HCL 100 MG TABLET PO (08:41)
[2023-11-13] MEDS: Memantine HCl 5 MG TABLET PO ×2 (08:41→20:56)
[2023-11-13 08:55] LABS: Glucose, Whole Blood 107 mg/dL (60-115)
[2023-11-13] MEDS: Simethicone 80 MG TAB.CHEW PO ×4 (09:39→20:56)
--- NOTE | 2023-11-13 12:06 | HO.PSYCHPN ---
Subjective Subjective Date of Service: 11/13/23 Reason For Visit: paranoia cognitive impairment Medical Problems Affecting Mental Status: Yes (past brain injury) Interim History: Met with patient. Patient flat cooperative apathetic goes to the emotions in the milieu needs direction. Pt somehat discouraged apathetic needs encouragement to fx despairing at times Medication Compliance: Yes Side effects from medications: No Attending Groups: Intermittent Review of Systems Acute medical concerns: No Mental Status Exam Mental Status Exam Patient Appearance: Fatigued Patient Orientation: Person, Place and Situation Level of Consciousness: Awake Patient Behavior: Appropriate and Cooperative Mood Description: Calm Affect Description: Blunted Patient Cognition Impaired: Yes Ability to Follow Directions: Fair Speech Pattern: Clear and Soft-Spoken Thought Content: positive for Preoccupation, negative for Suicidal Ideation or negative for Homicidal Ideation Depressive Symptoms: Increased Anxiety Judgement: Fair Diagnostics Vital Signs (24Hr): Vital Signs - 24 hr 11/12/23 20:00 11/13/23 07:54 Temperature 98.3 F 98.0 F Pulse Rate 96 74 Respiratory Rate 18 16 Blood Pressure 135/79 134/84 Pulse Oximetry 98 96 Oxygen Delivery Method Room Air Room Air BMI result Body Mass Index 31.8 Labs 09/10/23 20:00 11/07/23 08:26 Labs: Laboratory Results - last 48 hr 11/11/23 11/11/23 11/11/23 12:41 17:39 21:01 POC Glucose 188 H 152 H 140 H 11/12/23 11/12/23 11/12/23 08:30 12:44 17:51 POC Glucose 133 H 159 H 128 H 11/12/23 11/13/23 20:36 08:39 POC Glucose 149 H 107 Imaging Radiology Impressions: ITS Impressions Brain MRI 09/19/23 20:33 IMPRESSION: 1. No demonstrated acute intracranial abnormalities. 2. Chronic mild to moderate nonspecific white matter changes, most notably in the deep white matter of the right frontal lobe. Mild to moderate generalized cerebral volume loss. Medications Medications Current Medications Acetaminophen (Acetaminophen 325 Mg Tablet) 650 mg PO Q6H PRN PRN Reason: Headache/Pain Mild Scale (1-3) Last Admin: 10/13/23 09:39 Dose: 650 mg Al Hydroxide/Mg Hydroxide (Magnesium Hydrox/Alum Hydrox 30 Ml Oral.Susp) 30 ml PO Q6H PRN PRN Reason: Heartburn/Nausea Aripiprazole (Aripiprazole 10 Mg Tablet) 10 mg PO BEDTIME [facility] Last Admin: 11/12/23 21:17 Dose: 10 mg Benztropine Mesylate (Benztropine Mesylate 0.5 Mg Tablet) 0.5 mg PO TID PRN PRN Reason: Extrapyramidal Effects Glucose (Glucose Gel 15 Gm Gel..Gram.) 15 gm PO Q15M PRN; Protocol PRN Reason: per Hypoglycemia Standing Ord. Hydroxyzine HCl (Hydroxyzine Hcl 25 Mg Tablet) 25 mg PO Q6H PRN PRN Reason: Anxiety Last Admin: 10/27/23 20:38 Dose: 25 mg Dextrose (D10) 250 mls @ 750 mls/hr IV Q15M PRN; Protocol PRN Reason: per Hypoglycemia Standing Ord. Insulin Glargine (Insulin Glargine,Hum.Rec.Anlog 100 Unit/Ml 10 Ml Vial) 20 unit SUBCUT BEDTIME [facility] Last Admin: 11/12/23 21:19 Dose: 20 unit Insulin Human Lispro (Insulin Lispro 100 Unit/Ml 3 Ml Vial) 0 unit SUBCUT QIDACHS [facility]; Protocol Last Admin: 11/13/23 08:40 Dose: Not Given Lamotrigine (Lamotrigine 100 Mg Tablet) 100 mg PO BEDTIME [facility] Last Admin: 11/12/23 21:17 Dose: 100 mg Levothyroxine Sodium (Levothyroxine Sodium 200 Mcg Tablet) 200 mcg PO DAILY [facility] Last Admin: 11/13/23 08:41 Dose: 200 mcg Magnesium Hydroxide (Milk Of Magnesia 30 Ml Oral.Susp) 30 ml PO DAILY PRN PRN Reason: Constipation Memantine (Memantine Hcl 5 Mg Tablet) 5 mg PO BID [facility] Last Admin: 11/13/23 08:41 Dose: 5 mg Metformin HCl (Metformin Hcl Er 500 Mg Tab.Er.24h) 1,000 mg PO DAILY@1700 [facility] Last Admin: 11/12/23 17:03 Dose: 1,000 mg Nicotine Polacrilex (Nicotine Polacrilex 2 Mg Gum) 4 mg BUCCAL Q2H PRN PRN Reason: Nicotine Cravings Sertraline HCl (Sertraline Hcl 100 Mg Tablet) 100 mg PO DAILY [facility] Last Admin: 11/13/23 08:41 Dose: 100 mg Simethicone (Simethicone 80 Mg Tab.Chew) 80 mg PO [facility]ID[facility] Last Admin: 11/13/23 09:39 Dose: 80 mg Trazodone HCl (Trazodone Hcl 50 Mg Tablet) 50 mg PO BEDTIME MRX1 PRN PRN Reason: Insomnia Last Admin: 11/10/23 20:29 Dose: 50 mg Allergies Allergies Allergy/AdvReac Type Severity Reaction Status Date / Time amoxicillin [AMOXICILLIN] Allergy Mild VOMITING/ABD Verified 09/10/23 19:44 PAIN Assessment & Plan Assessment & Plan (1) Schizoaffective disorder: Status: Acute Code(s): F25.9 - Schizoaffective disorder, unspecified (2) Hypothyroidism: Status: Acute Code(s): E03.9 - Hypothyroidism, unspecified (3) Type 2 diabetes mellitus: Status: Acute Code(s): E11.9 - Type 2 diabetes mellitus without complications (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 Plan: CV 15 minute safety checks Continue home medications: Haldol 10mg PO daily Synthroid 200mcg PO daily Obtain labs; A1C/POCs Obtain collateral from sister Obtain records from last hospitalization. MOCA Referral for [facility]H services if patient is agreeable. encourage medication compliance;consider [facility] discharge planning 09/11: Elevated fasting blood sugar elevated hemoglobin A1c 9.2 med consult placed put in point of care needed will start metformin Would benefit from clarity over recent hospitalization what this were done details regarding treatment continue Haldol unclear if patient has Healthcare proxy his [place] was low slowed cognition with poor details in depth at times during blankly regarding making judgments Unclear if any of this relates to past coma or 2 hypothyroidism. He does seem more impaired than when last seen unclear when last imaging was. Continue Haldol sitter neuro indira involvement regarding diagnostic picture. Patient does remain paranoid blunted suspicious apathetic. He might benefit from longer-term placement if available and appropriate at a later time involved [facility] involvement would be quite helpful 09/12: cont haldol get records ? hcp ? start antidep unclear hx 09/13: Keeping to self. More talkative today. Pt concerned he will be transferred to [facility]. Pt stated, The paper I signed yesterday. Are you going to send me back to the last hospital? That place was horrible . Pt was educated he signed a release of information with Dr. Gonzalez to obtain records from [facility]. Pt was given a copy of the release he signed. Despite this, pt continues to be anxious about being transferred. Pt denies SI/HI/VH/AH. 09/14: Keeping to self. active on unit. showered. Pt reports feeling alright today; pt reports he is worried about where I'm going to go . Pt continues concerned he will be transferred to [facility]. Pt denies SI/HI/VH/AH. 09/15:Pt reports feeling alright today; pt continues to report he is worried about where I'm going to go . Responding with brief responses. Guarded. Observed standing in one place for a long period of time. Appears confused. Pt denies SI/HI/VH/AH. T/W spoke to patient's sister, Ros, with patients verbal consent. Ros reports concerns regarding patients ability to make decisions regarding his mental and physical health. She plans on contacting legal advice on obtaining guardianship of patient. 09/16:Patient's presents similar to yesterday's presentation. Responding with brief responses. Guarded. Observed standing in one place for a long period of time, when asked what he is doing, pt stated, I don't know . Pt reports he plans on contacting his sister today and try to convince her for me to stay there . Pt denies SI/HI/VH/AH. Continue current tx plan. 09/17: brief responses. Guarded. 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 Pt denies SI/HI/VH/AH. T/W and Dr. Gonzalez spoke to patient's sister, Ros. Ros stated being [facility] H[facility] and plans on finding document. She plans on coming to the hospital on Saturday to be present for [facility] intake. 09/21: No changes 09/22:Patient flat apathetic difficult insight and judgment his sister is healthcare proxy if needed patient is accepting medical treatment Referral to [facility] 09/23:Considers starting Haldol [place] patient is agreeable superficially difficulty with exec fx was seen [facility] 09/24:Pt seen in f/u mood flat dysphoric difficulty engaging in conversation preoccupied with thought he wont be living with family thing slowed apathetic no clear response with namenda ? some improvement inc lamictal start low dose sertraline inc lamictal ck tsh 09/25:Start Abilify as augmentation with Haldol see if can be more stimulating regarding depressed mood apathetic limited engagement sertraline 50 mg Lamictal 25 b.i.d. referral to [facility] which would have structure unclear if patient can engage with this he remains quite depressed has delusional beliefs regarding housing and that things have been done he has repeatedly tried to reach out to his sister denies active SI needs much help dressing talking with others encouragement to eat severe thought blocking Abilify might be more stimulating than Haldol which can be more dulling 09/26:Abilify started sertraline Lamictal encouraged step-down to [facility] encourage reality orientation denies active SI 09/27: Continue current regimen and plans 09/28: Continue current regimen and plans. 09/29: Referral to [facility] increase Abilify to 5 mg daily eventually try and taper Haldol sertraline 50 mg daily 09/30:Increase Abilify to 10 mg lower Haldol to 7 mg continue sertraline and Lamictal 10/01:Abilify increased to 10 mg continue to taper Haldol sertraline 100 mg Lamictal increased to 75 mg patient apathetic withdrawn difficulty with placement some paranoia continues difficulty with decision making at times. Not physically aggressive internally preoccupied seems somewhat improved with Abilify sertraline Continue discharge planning 10/02:Patient somewhat blunted flat slowed thinking during the day times staring. Change Abilify to 10 mg at bedtime. Scheduled Haldol will lowered to 2.5 mg Continue sertraline 100 mg Namenda 5 b.i.d. 10/03:Haldol discontinued modafinil low-dose monitor for psychosis or agitation continue discharge planning 10/06: May need to firm healthcare proxy calls have been placed to sister to try to help in discharge planning. Referrals made. Patient cooperative with care 10/07:Pharmacy ordering Abilify maintain a increase modafinil 100 mg patient remains flat passive depressed some improvement noted no current paranoia noted continue discharge planning no current safe discharge plan 10/08: Increase Lamictal 100 mg Abilify Maintena 400 mg hold modafinil unclear if was overly stimulating patient continues to present internally preoccupied. 10/09:Healthcare proxy invoked discharge planning continue Lamictal Abilify pending maintain a 10/10:Healthcare proxy invoked new CV signed discharge planning. 10/11 keep same treatment 10/12 keep same treatment 10/13: Continue plan of care Lamictal Abilify discharge planning sertraline 10/14: stable. continue current mgmt. 10/15: stable. continue current mgmt. 10/16: stable presentation. continue current mgmt. 10/17: as for yesterday. 10/18: no changes. 10/19: stabel, safe. no change. 10/20: no change in presentation. calm, cooperative. active on unit, social with select peers, attending groups. Pt reports feeling alright . denies SI/HI/VH/AH. Social work waiting to hear from possible placement location. Continue current tx plan. 10/21: continue current tx plan. awaiting placement. 10/22: calm, cooperative. active on unit, social with select peers, attending groups. Pt reports feeling good ; pt stated, I'm waiting to see where I'm going . denies SI/HI/VH/AH. Showered with encouragement. 10/23: continue current tx plan. 10/24: calm, cooperative. active on unit, social with select peers, attending groups. Pt reports feeling good ; pt stated, I just want a place to live . 10/25- likely at baseline for him- CTP 10/26 CTP likely needs placement 10/27: continue current tx plan. awaiting placement. 10/28: Similar to yesterday. No change in presentation. 10/29: Pt reports feeling good ;pt stated, just waiting for a place to live . denies any issues at this time. 10/30: calm, cooperative. active on unit, social with select peers, attending groups. Pt reports feeling worried about where I am going to live . denies any issues at this time. 10/21: no change in presentation. continue current tx plan. 11/01: continue current management and treatment plan. 11/02: Continue current management and treatment plan. 11/03: Continue current management and treatment plan. 11/04: Active on unit. calm, cooperative. social with select peers, attending groups. denies any issues at this time. He reports sleeping well. Pt reports he would be interested in applying for [facility] services; social work aware. 11/05: Active on unit. calm, cooperative. social with select peers, attending groups. denies any issues at this time. Pt reports feeling okay ; he reports anxiety regarding placement. Continue current tx plan. 11/07/23 DM referral has appropriate concerns re living stuation cont abilify lamictal 11/08/23 Pt cooperative with care d/c planning working with cont d/c planning cont lamictal abilify 11/12/23 Patient increasingly despairing aware of no clear discharge plan periods needs cuing for much functioning limited social engaged needs help regarding diabetes and medication compliance reportedly had been rejected by multiple rest homes patient not threatening intermittently hopeless helpless very limited family contact at this time 11/13/23 pt flat depressed hopeless helpless unable to fx without structure Reason for continued inpatient stay Substantial Risk for: inability to function, rapid decompensation and med/psych decompensation Time Spent With Patient Time: Total time managing care of this patient today ____ minutes.
[2023-11-13 12:44] LABS: Glucose, Whole Blood 177 mg/dL (60-115)
[2023-11-13] MEDS: Insulin Lispro 100 UNIT/ML 3 ML VIAL SUBCUT ×3 (12:52→20:57)
[2023-11-13] MEDS: metFORMIN HCl ER 500 MG TAB.ER.24H 1000 MG PO (17:10)
[2023-11-13 17:50] LABS: Glucose, Whole Blood 166 mg/dL (60-115)
[2023-11-13 19:57] VITALS: BP 120/68; PULSE 85; RESP 16; TEMP 36.9; O2SAT 97
[2023-11-13 20:41] LABS: Glucose, Whole Blood 163 mg/dL (60-115)
[2023-11-13] MEDS: lamoTRIgine 100 MG TABLET PO (20:56)
[2023-11-13] MEDS: ARIPiprazole 10 MG TABLET PO (20:56)
[2023-11-13] MEDS: Insulin Glargine,Hum.rec.anlog 100 UNIT/ML 10 ML VIAL 20 UNIT SUBCUT (20:57)
[2023-11-14 07:00] VITALS: BMI 31.9
[2023-11-14 08:00] VITALS: BP 133/70; PULSE 79; RESP 16; TEMP 36.9; O2SAT 95
[2023-11-14 08:57] LABS: Glucose, Whole Blood 111 mg/dL (60-115)
[2023-11-14] MEDS: Levothyroxine Sodium 200 MCG TABLET PO (09:02)
[2023-11-14] MEDS: Sertraline HCL 100 MG TABLET PO (09:02)
[2023-11-14] MEDS: Memantine HCl 5 MG TABLET PO ×2 (09:02→20:58)
[2023-11-14] MEDS: Simethicone 80 MG TAB.CHEW PO ×3 (12:29→20:58)
[2023-11-14 12:32] LABS: Glucose, Whole Blood 192 mg/dL (60-115)
[2023-11-14] MEDS: Insulin Lispro 100 UNIT/ML 3 ML VIAL SUBCUT ×2 (12:52→21:00)
[2023-11-14 17:41] LABS: Glucose, Whole Blood 91 mg/dL (60-115)
[2023-11-14] MEDS: metFORMIN HCl ER 500 MG TAB.ER.24H 1000 MG PO (18:41)
[2023-11-14 20:00] VITALS: BP 133/65; PULSE 86; RESP 16; TEMP 36.8; O2SAT 96
[2023-11-14 20:24] LABS: Glucose, Whole Blood 289 mg/dL (60-115)
[2023-11-14] MEDS: lamoTRIgine 100 MG TABLET PO (20:58)
[2023-11-14] MEDS: ARIPiprazole 10 MG TABLET PO (20:58)
[2023-11-14] MEDS: Insulin Glargine,Hum.rec.anlog 100 UNIT/ML 10 ML VIAL 20 UNIT SUBCUT (21:00)
[2023-11-15 07:42] VITALS: BP 117/68; PULSE 80; RESP 16; TEMP 36.6; O2SAT 97
[2023-11-15] MEDS: Simethicone 80 MG TAB.CHEW PO ×4 (08:48→20:46)
[2023-11-15] MEDS: Levothyroxine Sodium 200 MCG TABLET PO (08:48)
[2023-11-15] MEDS: Memantine HCl 5 MG TABLET PO ×2 (08:48→20:46)
[2023-11-15] MEDS: Sertraline HCL 100 MG TABLET PO (08:48)
[2023-11-15 09:04] LABS: Glucose, Whole Blood 90 mg/dL (60-115)
[2023-11-15 12:52] LABS: Glucose, Whole Blood 139 mg/dL (60-115)
[2023-11-15 17:35] LABS: Glucose, Whole Blood 101 mg/dL (60-115)
[2023-11-15] MEDS: metFORMIN HCl ER 500 MG TAB.ER.24H 1000 MG PO (17:39)
[2023-11-15 20:00] VITALS: BP 120/58; PULSE 80; RESP 14; TEMP 36.6; O2SAT 97
[2023-11-15 20:24] LABS: Glucose, Whole Blood 175 mg/dL (60-115)
[2023-11-15] MEDS: Insulin Lispro 100 UNIT/ML 3 ML VIAL SUBCUT (20:44)
[2023-11-15] MEDS: Insulin Glargine,Hum.rec.anlog 100 UNIT/ML 10 ML VIAL 20 UNIT SUBCUT (20:44)
[2023-11-15] MEDS: lamoTRIgine 100 MG TABLET PO (20:46)
[2023-11-15] MEDS: ARIPiprazole 10 MG TABLET PO (20:46)
[2023-11-16 07:45] VITALS: BP 114/63; PULSE 83; RESP 14; TEMP 36.8; O2SAT 98
[2023-11-16] MEDS: Sertraline HCL 100 MG TABLET PO (09:12)
[2023-11-16] MEDS: Memantine HCl 5 MG TABLET PO ×2 (09:12→21:02)
[2023-11-16] MEDS: Levothyroxine Sodium 200 MCG TABLET PO (09:12)
[2023-11-16] MEDS: Simethicone 80 MG TAB.CHEW PO ×4 (09:13→21:02)
[2023-11-16 09:39] LABS: Glucose, Whole Blood 111 mg/dL (60-115)
--- NOTE | 2023-11-16 10:07 | HO.PSYCHPN ---
Subjective Subjective Date of Service: 11/16/23 Reason For Visit: paranoia cognitive impairment Subjective Notes: Conditional Voluntary Interim History: Pt slept through the night. He is in bed. he reports doing well. he denies SI/HI. somewhat constricted affect but congruent. No behavioral concerns. Diagnostics Vital Signs (24Hr): Vital Signs - 24 hr 11/15/23 20:00 11/16/23 07:45 Temperature 97.9 F 98.3 F Pulse Rate 80 83 Respiratory Rate 14 14 Blood Pressure 120/58 L 114/63 Pulse Oximetry 97 98 Oxygen Delivery Method Room Air Room Air BMI result Body Mass Index 31.9 Labs 09/10/23 20:00 11/07/23 08:26 Labs: Laboratory Results - last 48 hr 11/14/23 11/14/23 11/14/23 12:28 17:37 20:18 POC Glucose 192 H 91 289 H 11/15/23 11/15/23 11/15/23 09:00 12:48 17:31 POC Glucose 90 139 H 101 11/15/23 11/16/23 20:20 09:11 POC Glucose 175 H 111 Imaging Radiology Impressions: ITS Impressions Brain MRI 09/19/23 20:33 IMPRESSION: 1. No demonstrated acute intracranial abnormalities. 2. Chronic mild to moderate nonspecific white matter changes, most notably in the deep white matter of the right frontal lobe. Mild to moderate generalized cerebral volume loss. Medications Medications Current Medications Acetaminophen (Acetaminophen 325 Mg Tablet) 650 mg PO Q6H PRN PRN Reason: Headache/Pain Mild Scale (1-3) Last Admin: 10/13/23 09:39 Dose: 650 mg Al Hydroxide/Mg Hydroxide (Magnesium Hydrox/Alum Hydrox 30 Ml Oral.Susp) 30 ml PO Q6H PRN PRN Reason: Heartburn/Nausea Aripiprazole (Aripiprazole 10 Mg Tablet) 10 mg PO BEDTIME MANAS Last Admin: 11/15/23 20:46 Dose: 10 mg Benztropine Mesylate (Benztropine Mesylate 0.5 Mg Tablet) 0.5 mg PO TID PRN PRN Reason: Extrapyramidal Effects Glucose (Glucose Gel 15 Gm Gel..Gram.) 15 gm PO Q15M PRN; Protocol PRN Reason: per Hypoglycemia Standing Ord. Hydroxyzine HCl (Hydroxyzine Hcl 25 Mg Tablet) 25 mg PO Q6H PRN PRN Reason: Anxiety Last Admin: 10/27/23 20:38 Dose: 25 mg Dextrose (D10) 250 mls @ 750 mls/hr IV Q15M PRN; Protocol PRN Reason: per Hypoglycemia Standing Ord. Insulin Glargine (Insulin Glargine,Hum.Rec.Anlog 100 Unit/Ml 10 Ml Vial) 20 unit SUBCUT BEDTIME [facility] Last Admin: 11/15/23 20:44 Dose: 20 unit Insulin Human Lispro (Insulin Lispro 100 Unit/Ml 3 Ml Vial) 0 unit SUBCUT QIDACHS [facility]; Protocol Last Admin: 11/16/23 09:14 Dose: Not Given Lamotrigine (Lamotrigine 100 Mg Tablet) 100 mg PO BEDTIME [facility] Last Admin: 11/15/23 20:46 Dose: 100 mg Levothyroxine Sodium (Levothyroxine Sodium 200 Mcg Tablet) 200 mcg PO DAILY [facility] Last Admin: 11/16/23 09:12 Dose: 200 mcg Magnesium Hydroxide (Milk Of Magnesia 30 Ml Oral.Susp) 30 ml PO DAILY PRN PRN Reason: Constipation Memantine (Memantine Hcl 5 Mg Tablet) 5 mg PO BID [facility] Last Admin: 11/16/23 09:12 Dose: 5 mg Metformin HCl (Metformin Hcl Er 500 Mg Tab.Er.24h) 1,000 mg PO DAILY@1700 [facility] Last Admin: 11/15/23 17:39 Dose: 1,000 mg Nicotine Polacrilex (Nicotine Polacrilex 2 Mg Gum) 4 mg BUCCAL Q2H PRN PRN Reason: Nicotine Cravings Sertraline HCl (Sertraline Hcl 100 Mg Tablet) 100 mg PO DAILY [facility] Last Admin: 11/16/23 09:12 Dose: 100 mg Simethicone (Simethicone 80 Mg Tab.Chew) 80 mg PO QIDWMHS [facility] Last Admin: 11/16/23 09:13 Dose: 80 mg Trazodone HCl (Trazodone Hcl 50 Mg Tablet) 50 mg PO BEDTIME MRX1 PRN PRN Reason: Insomnia Last Admin: 11/10/23 20:29 Dose: 50 mg Allergies Allergies Allergy/AdvReac Type Severity Reaction Status Date / Time amoxicillin [AMOXICILLIN] Allergy Mild VOMITING/ABD Verified 09/10/23 19:44 PAIN Assessment & Plan Assessment & Plan (1) Schizoaffective disorder: Status: Acute Code(s): F25.9 - Schizoaffective disorder, unspecified (2) Hypothyroidism: Status: Acute Code(s): E03.9 - Hypothyroidism, unspecified (3) Type 2 diabetes mellitus: Status: Acute Code(s): E11.9 - Type 2 diabetes mellitus without complications (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 Plan: CV 15 minute safety checks Continue home medications: Haldol 10mg PO daily Synthroid 200mcg PO daily Obtain labs; A1C/POCs Obtain collateral from sister Obtain records from last hospitalization. MOCA Referral for [facility] services if patient is agreeable. encourage medication compliance;consider VARGAS discharge planning 09/11: Elevated fasting blood sugar elevated hemoglobin A1c 9.2 med consult placed put in point of care needed will start metformin Would benefit from clarity over recent hospitalization what this were done details regarding treatment continue Haldol unclear if patient has Healthcare proxy his [place] was low slowed cognition with poor details in depth at times during blankly regarding making judgments Unclear if any of this relates to past coma or 2 hypothyroidism. He does seem more impaired than when last seen unclear when last imaging was. Continue Haldol sitter neuro indira involvement regarding diagnostic picture. Patient does remain paranoid blunted suspicious apathetic. He might benefit from longer-term placement if available and appropriate at a later time involved [facility] involvement would be quite helpful 09/12: cont haldol get records ? hcp ? start antidep unclear hx 09/13: Keeping to self. More talkative today. Pt concerned he will be transferred to [facility]. Pt stated, The paper I signed yesterday. Are you going to send me back to the last hospital? That place was horrible . Pt was educated he signed a release of information with Dr. Gonzalez to obtain records from [facility]. Pt was given a copy of the release he signed. Despite this, pt continues to be anxious about being transferred. Pt denies SI/HI/VH/AH. 09/14: Keeping to self. active on unit. showered. Pt reports feeling alright today; pt reports he is worried about where I'm going to go . Pt continues concerned he will be transferred to [facility]. Pt denies SI/HI/VH/AH. 09/15:Pt reports feeling alright today; pt continues to report he is worried about where I'm going to go . Responding with brief responses. Guarded. Observed standing in one place for a long period of time. Appears confused. Pt denies SI/HI/VH/AH. T/W spoke to patient's sister, Ros, with patients verbal consent. Ros reports concerns regarding patients ability to make decisions regarding his mental and physical health. She plans on contacting legal advice on obtaining guardianship of patient. 09/16:Patient's presents similar to yesterday's presentation. Responding with brief responses. Guarded. Observed standing in one place for a long period of time, when asked what he is doing, pt stated, I don't know . Pt reports he plans on contacting his sister today and try to convince her for me to stay there . Pt denies SI/HI/VH/AH. Continue current tx plan. 09/17: brief responses. Guarded. 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 Pt denies SI/HI/VH/AH. T/W and Dr. Gonzalez spoke to patient's sister, Ros. Ros stated being [facility] HCP and plans on finding document. She plans on coming to the hospital on Saturday to be present for [facility] intake. 09/21: No changes 09/22:Patient flat apathetic difficult insight and judgment his sister is healthcare proxy if needed patient is accepting medical treatment Referral to [facility] 09/23:Considers starting Haldol Decanoate patient is agreeable superficially difficulty with exec fx was seen [facility] 09/24:Pt seen in f/u mood flat dysphoric difficulty engaging in conversation preoccupied with thought he wont be living with family thing slowed apathetic no clear response with namenda ? some improvement inc lamictal start low dose sertraline inc lamictal ck tsh 09/25:Start Abilify as augmentation with Haldol see if can be more stimulating regarding depressed mood apathetic limited engagement sertraline 50 mg Lamictal 25 b.i.d. referral to [facility] which would have structure unclear if patient can engage with this he remains quite depressed has delusional beliefs regarding housing and that things have been done he has repeatedly tried to reach out to his sister denies active SI needs much help dressing talking with others encouragement to eat severe thought blocking Abilify might be more stimulating than Haldol which can be more dulling 09/26:Abilify started sertraline Lamictal encouraged step-down to [facility] encourage reality orientation denies active SI 09/27: Continue current regimen and plans 09/28: Continue current regimen and plans. 09/29: Referral to [facility] increase Abilify to 5 mg daily eventually try and taper Haldol sertraline 50 mg daily 09/30:Increase Abilify to 10 mg lower Haldol to 7 mg continue sertraline and Lamictal 10/01:Abilify increased to 10 mg continue to taper Haldol sertraline 100 mg Lamictal increased to 75 mg patient apathetic withdrawn difficulty with placement some paranoia continues difficulty with decision making at times. Not physically aggressive internally preoccupied seems somewhat improved with Abilify sertraline Continue discharge planning 10/02:Patient somewhat blunted flat slowed thinking during the day times staring. Change Abilify to 10 mg at bedtime. Scheduled Haldol will lowered to 2.5 mg Continue sertraline 100 mg Namenda 5 b.i.d. 10/03:Haldol discontinued modafinil low-dose monitor for psychosis or agitation continue discharge planning 10/06: May need to firm healthcare proxy calls have been placed to sister to try to help in discharge planning. Referrals made. Patient cooperative with care 10/07:Pharmacy ordering Abilify maintain a increase modafinil 100 mg patient remains flat passive depressed some improvement noted no current paranoia noted continue discharge planning no current safe discharge plan 10/08: Increase Lamictal 100 mg Abilify Maintena 400 mg hold modafinil unclear if was overly stimulating patient continues to present internally preoccupied. 10/09:Healthcare proxy invoked discharge planning continue Lamictal Abilify pending maintain a 10/10:Healthcare proxy invoked new CV signed discharge planning. 10/11 keep same treatment 10/12 keep same treatment 10/13: Continue plan of care Lamictal Abilify discharge planning sertraline 10/14: stable. continue current mgmt. 10/15: stable. continue current mgmt. 10/16: stable presentation. continue current mgmt. 10/17: as for yesterday. 10/18: no changes. 10/19: stabel, safe. no change. 10/20: no change in presentation. calm, cooperative. active on unit, social with select peers, attending groups. Pt reports feeling alright . denies SI/HI/VH/AH. Social work waiting to hear from possible placement location. Continue current tx plan. 10/21: continue current tx plan. awaiting placement. 10/22: calm, cooperative. active on unit, social with select peers, attending groups. Pt reports feeling good ; pt stated, I'm waiting to see where I'm going . denies SI/HI/VH/AH. Showered with encouragement. 10/23: continue current tx plan. 10/24: calm, cooperative. active on unit, social with select peers, attending groups. Pt reports feeling good ; pt stated, I just want a place to live . 10/25- likely at baseline for him- CTP 10/26 CTP likely needs placement 10/27: continue current tx plan. awaiting placement. 10/28: Similar to yesterday. No change in presentation. 10/29: Pt reports feeling good ;pt stated, just waiting for a place to live . denies any issues at this time. 10/30: calm, cooperative. active on unit, social with select peers, attending groups. Pt reports feeling worried about where I am going to live . denies any issues at this time. 10/21: no change in presentation. continue current tx plan. 11/01: continue current management and treatment plan. 11/02: Continue current management and treatment plan. 11/03: Continue current management and treatment plan. 11/04: Active on unit. calm, cooperative. social with select peers, attending groups. denies any issues at this time. He reports sleeping well. Pt reports he would be interested in applying for [facility] services; social work aware. 11/05: Active on unit. calm, cooperative. social with select peers, attending groups. denies any issues at this time. Pt reports feeling okay ; he reports anxiety regarding placement. Continue current tx plan. 11/07/23 [facility] referral has appropriate concerns re living stuation cont abilify lamictal 11/08/23 Pt cooperative with care d/c planning working with cont d/c planning cont lamictal abilify 11/12/23 Patient increasingly despairing aware of no clear discharge plan periods needs cuing for much functioning limited social engaged needs help regarding diabetes and medication compliance reportedly had been rejected by multiple rest homes patient not threatening intermittently hopeless helpless very limited family contact at this time 11/13/23 pt flat depressed hopeless helpless unable to fx without structure 11/15 continue tx. Reason for continued inpatient stay Substantial Risk for: inability to function Time Spent With Patient Time: Total time managing care of this patient today ____ minutes.
[2023-11-16 13:01] LABS: Glucose, Whole Blood 161 mg/dL (60-115)
[2023-11-16] MEDS: Insulin Lispro 100 UNIT/ML 3 ML VIAL SUBCUT ×2 (13:42→21:00)
[2023-11-16 17:57] LABS: Glucose, Whole Blood 95 mg/dL (60-115)
[2023-11-16] MEDS: metFORMIN HCl ER 500 MG TAB.ER.24H 1000 MG PO (18:00)
[2023-11-16 19:15] VITALS: BP 120/65; PULSE 87; RESP 16; TEMP 36.9; O2SAT 96
[2023-11-16 20:57] LABS: Glucose, Whole Blood 188 mg/dL (60-115)
[2023-11-16] MEDS: Insulin Glargine,Hum.rec.anlog 100 UNIT/ML 10 ML VIAL 20 UNIT SUBCUT (21:00)
[2023-11-16] MEDS: ARIPiprazole 10 MG TABLET PO (21:02)
[2023-11-16] MEDS: lamoTRIgine 100 MG TABLET PO (21:02)
[2023-11-17 08:00] VITALS: BP 107/57; PULSE 80; RESP 16; TEMP 36.4; O2SAT 97
[2023-11-17 08:43] LABS: Glucose, Whole Blood 117 mg/dL (60-115)
[2023-11-17] MEDS: Memantine HCl 5 MG TABLET PO ×2 (08:54→20:18)
[2023-11-17] MEDS: Simethicone 80 MG TAB.CHEW PO ×4 (08:54→20:18)
[2023-11-17] MEDS: Sertraline HCL 100 MG TABLET PO (08:54)
[2023-11-17] MEDS: Levothyroxine Sodium 200 MCG TABLET PO (11:03)
--- NOTE | 2023-11-17 12:08 | HO.PSYCHPN ---
Subjective Subjective Date of Service: 11/17/23 Reason For Visit: paranoia cognitive impairment Subjective Notes: Conditional Voluntary Interim History: Pt slept through the night. He was up this morning, well dressed. He denies any SI/HI. Or physical concerns. He also denies concerns with medications. no overt psychosis or delusional content noted or reported. Review of Systems Review of Systems unremarkable Yes all other systems are reviewed and are negative Constitutional: Reports as per HPI Eyes: Reports as per HPI Reports as per HPI Cardiovascular: Reports as per HPI Respiratory: Reports as per HPI Gastrointestinal: Reports as per HPI Genitourinary: Reports as per HPI Musculoskeletal: Reports as per HPI Skin/Breast: Reports as per HPI Reports as per HPI Psychiatric: Reports as per HPI Endocrine: Reports as per HPI Hematologic/Lymphatic: Reports as per HPI Allergic/Immunologic: Reports as per HPI Mental Status Exam Mental Status Exam Patient Appearance: Fatigued Patient Orientation: Person, Place and Situation Level of Consciousness: Awake Patient Behavior: Appropriate and Cooperative Mood Description: Calm Affect Description: Blunted Patient Cognition Impaired: Yes Ability to Follow Directions: Fair Speech Pattern: Clear and Soft-Spoken 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: Senior Care Impaired Diagnostics Vital Signs (24Hr): Vital Signs - 24 hr 11/16/23 19:15 11/17/23 08:00 Temperature 98.4 F 97.6 F Pulse Rate 87 80 Respiratory Rate 16 16 Blood Pressure 120/65 107/57 L Pulse Oximetry 96 97 Oxygen Delivery Method Room Air Room Air BMI result Body Mass Index 31.9 Labs 09/10/23 20:00 11/07/23 08:26 Labs: Laboratory Results - last 48 hr 11/15/23 11/15/23 11/15/23 12:48 17:31 20:20 POC Glucose 139 H 101 175 H 11/16/23 11/16/23 11/16/23 09:11 12:51 17:54 POC Glucose 111 161 H 95 11/16/23 11/17/23 20:52 08:38 POC Glucose 188 H 117 H Imaging Radiology Impressions: ITS Impressions Brain MRI 09/19/23 20:33 IMPRESSION: 1. No demonstrated acute intracranial abnormalities. 2. Chronic mild to moderate nonspecific white matter changes, most notably in the deep white matter of the right frontal lobe. Mild to moderate generalized cerebral volume loss. Medications Medications Current Medications Acetaminophen (Acetaminophen 325 Mg Tablet) 650 mg PO Q6H PRN PRN Reason: Headache/Pain Mild Scale (1-3) Last Admin: 10/13/23 09:39 Dose: 650 mg Al Hydroxide/Mg Hydroxide (Magnesium Hydrox/Alum Hydrox 30 Ml Oral.Susp) 30 ml PO Q6H PRN PRN Reason: Heartburn/Nausea Aripiprazole (Aripiprazole 10 Mg Tablet) 10 mg PO BEDTIME [facility] Last Admin: 11/16/23 21:02 Dose: 10 mg Benztropine Mesylate (Benztropine Mesylate 0.5 Mg Tablet) 0.5 mg PO TID PRN PRN Reason: Extrapyramidal Effects Glucose (Glucose Gel 15 Gm Gel..Gram.) 15 gm PO Q15M PRN; Protocol PRN Reason: per Hypoglycemia Standing Ord. Hydroxyzine HCl (Hydroxyzine Hcl 25 Mg Tablet) 25 mg PO Q6H PRN PRN Reason: Anxiety Last Admin: 10/27/23 20:38 Dose: 25 mg Dextrose (D10) 250 mls @ 750 mls/hr IV Q15M PRN; Protocol PRN Reason: per Hypoglycemia Standing Ord. Insulin Glargine (Insulin Glargine,Hum.Rec.Anlog 100 Unit/Ml 10 Ml Vial) 20 unit SUBCUT BEDTIME [facility] Last Admin: 11/16/23 21:00 Dose: 20 unit Insulin Human Lispro (Insulin Lispro 100 Unit/Ml 3 Ml Vial) 0 unit SUBCUT QIDACHS [facility]; Protocol Last Admin: 11/17/23 09:26 Dose: Not Given Lamotrigine (Lamotrigine 100 Mg Tablet) 100 mg PO BEDTIME [facility] Last Admin: 11/16/23 21:02 Dose: 100 mg Levothyroxine Sodium (Levothyroxine Sodium 200 Mcg Tablet) 200 mcg PO DAILY [facility] Last Admin: 11/17/23 11:03 Dose: 200 mcg Magnesium Hydroxide (Milk Of Magnesia 30 Ml Oral.Susp) 30 ml PO DAILY PRN PRN Reason: Constipation Memantine (Memantine Hcl 5 Mg Tablet) 5 mg PO BID [facility] Last Admin: 11/17/23 08:54 Dose: 5 mg Metformin HCl (Metformin Hcl Er 500 Mg Tab.Er.24h) 1,000 mg PO DAILY@1700 [facility] Last Admin: 11/16/23 18:00 Dose: 1,000 mg Nicotine Polacrilex (Nicotine Polacrilex 2 Mg Gum) 4 mg BUCCAL Q2H PRN PRN Reason: Nicotine Cravings Sertraline HCl (Sertraline Hcl 100 Mg Tablet) 100 mg PO DAILY [facility] Last Admin: 11/17/23 08:54 Dose: 100 mg Simethicone (Simethicone 80 Mg Tab.Chew) 80 mg PO QIDWMHS [facility] Last Admin: 11/17/23 08:54 Dose: 80 mg Trazodone HCl (Trazodone Hcl 50 Mg Tablet) 50 mg PO BEDTIME MRX1 PRN PRN Reason: Insomnia Last Admin: 11/10/23 20:29 Dose: 50 mg Allergies Allergies Allergy/AdvReac Type Severity Reaction Status Date / Time amoxicillin [AMOXICILLIN] Allergy Mild VOMITING/ABD Verified 09/10/23 19:44 PAIN Assessment & Plan Assessment & Plan (1) Schizoaffective disorder: Status: Acute Code(s): F25.9 - Schizoaffective disorder, unspecified (2) Hypothyroidism: Status: Acute Code(s): E03.9 - Hypothyroidism, unspecified (3) Type 2 diabetes mellitus: Status: Acute Code(s): E11.9 - Type 2 diabetes mellitus without complications (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 Plan: CV 15 minute safety checks Continue home medications: Haldol 10mg PO daily Synthroid 200mcg PO daily Obtain labs; A1C/POCs Obtain collateral from sister Obtain records from last hospitalization. MOCA Referral for [facility] services if patient is agreeable. encourage medication compliance;consider VARGAS discharge planning 09/11: Elevated fasting blood sugar elevated hemoglobin A1c 9.2 med consult placed put in point of care needed will start metformin Would benefit from clarity over recent hospitalization what this were done details regarding treatment continue Haldol unclear if patient has Healthcare proxy his Cidra was low slowed cognition with poor details in depth at times during blankly regarding making judgments Unclear if any of this relates to past coma or 2 hypothyroidism. He does seem more impaired than when last seen unclear when last imaging was. Continue Haldol sitter neuro indira involvement regarding diagnostic picture. Patient does remain paranoid blunted suspicious apathetic. He might benefit from longer-term placement if available and appropriate at a later time involved H involvement would be quite helpful 09/12: cont haldol get records ? hcp ? start antidep unclear hx 09/13: Keeping to self. More talkative today. Pt concerned he will be transferred to [facility]. Pt stated, The paper I signed yesterday. Are you going to send me back to the last hospital? That place was horrible . Pt was educated he signed a release of information with Dr. Gonzalez to obtain records from [facility]. Pt was given a copy of the release he signed. Despite this, pt continues to be anxious about being transferred. Pt denies SI/HI/VH/AH. 09/14: Keeping to self. active on unit. showered. Pt reports feeling alright today; pt reports he is worried about where I'm going to go . Pt continues concerned he will be transferred to [facility]. Pt denies SI/HI/VH/AH. 09/15:Pt reports feeling alright today; pt continues to report he is worried about where I'm going to go . Responding with brief responses. Guarded. Observed standing in one place for a long period of time. Appears confused. Pt denies SI/HI/VH/AH. T/W spoke to patient's sister, Ros, with patients verbal consent. Ros reports concerns regarding patients ability to make decisions regarding his mental and physical health. She plans on contacting legal advice on obtaining guardianship of patient. 09/16:Patient's presents similar to yesterday's presentation. Responding with brief responses. Guarded. Observed standing in one place for a long period of time, when asked what he is doing, pt stated, I don't know . Pt reports he plans on contacting his sister today and try to convince her for me to stay there . Pt denies SI/HI/VH/AH. Continue current tx plan. 09/17: brief responses. Guarded. 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 Pt denies SI/HI/VH/AH. T/W and Dr. Gonzalez spoke to patient's sister, Ros. Ros stated being [facility] HCP and plans on finding document. She plans on coming to the hospital on Saturday to be present for [facility] intake. 09/21: No changes 09/22:Patient flat apathetic difficult insight and judgment his sister is healthcare proxy if needed patient is accepting medical treatment Referral to [facility] 09/23:Considers starting Haldol Decanoate patient is agreeable superficially difficulty with exec fx was seen [facility] 09/24:Pt seen in f/u mood flat dysphoric difficulty engaging in conversation preoccupied with thought he wont be living with family thing slowed apathetic no clear response with namenda ? some improvement inc lamictal start low dose sertraline inc lamictal ck tsh 09/25:Start Abilify as augmentation with Haldol see if can be more stimulating regarding depressed mood apathetic limited engagement sertraline 50 mg Lamictal 25 b.i.d. referral to [facility] which would have structure unclear if patient can engage with this he remains quite depressed has delusional beliefs regarding housing and that things have been done he has repeatedly tried to reach out to his sister denies active SI needs much help dressing talking with others encouragement to eat severe thought blocking Abilify might be more stimulating than Haldol which can be more dulling 09/26:Abilify started sertraline Lamictal encouraged step-down to [facility] encourage reality orientation denies active SI 09/27: Continue current regimen and plans 09/28: Continue current regimen and plans. 09/29: Referral to [facility] increase Abilify to 5 mg daily eventually try and taper Haldol sertraline 50 mg daily 09/30:Increase Abilify to 10 mg lower Haldol to 7 mg continue sertraline and Lamictal 10/01:Abilify increased to 10 mg continue to taper Haldol sertraline 100 mg Lamictal increased to 75 mg patient apathetic withdrawn difficulty with placement some paranoia continues difficulty with decision making at times. Not physically aggressive internally preoccupied seems somewhat improved with Abilify sertraline Continue discharge planning 10/02:Patient somewhat blunted flat slowed thinking during the day times staring. Change Abilify to 10 mg at bedtime. Scheduled Haldol will lowered to 2.5 mg Continue sertraline 100 mg Namenda 5 b.i.d. 10/03:Haldol discontinued modafinil low-dose monitor for psychosis or agitation continue discharge planning 10/06: May need to firm healthcare proxy calls have been placed to sister to try to help in discharge planning. Referrals made. Patient cooperative with care 10/07:Pharmacy ordering Abilify maintain a increase modafinil 100 mg patient remains flat passive depressed some improvement noted no current paranoia noted continue discharge planning no current safe discharge plan 10/08: Increase Lamictal 100 mg Abilify Maintena 400 mg hold modafinil unclear if was overly stimulating patient continues to present internally preoccupied. 10/09:Healthcare proxy invoked discharge planning continue Lamictal Abilify pending maintain a 10/10:Healthcare proxy invoked new CV signed discharge planning. 10/11 keep same treatment 10/12 keep same treatment 10/13: Continue plan of care Lamictal Abilify discharge planning sertraline 10/14: stable. continue current mgmt. 10/15: stable. continue current mgmt. 10/16: stable presentation. continue current mgmt. 10/17: as for yesterday. 10/18: no changes. 10/19: stabel, safe. no change. 10/20: no change in presentation. calm, cooperative. active on unit, social with select peers, attending groups. Pt reports feeling alright . denies SI/HI/VH/AH. Social work waiting to hear from possible placement location. Continue current tx plan. 10/21: continue current tx plan. awaiting placement. 10/22: calm, cooperative. active on unit, social with select peers, attending groups. Pt reports feeling good ; pt stated, I'm waiting to see where I'm going . denies SI/HI/VH/AH. Showered with encouragement. 10/23: continue current tx plan. 10/24: calm, cooperative. active on unit, social with select peers, attending groups. Pt reports feeling good ; pt stated, I just want a place to live . 10/25- likely at baseline for him- CTP 10/26 CTP likely needs placement 10/27: continue current tx plan. awaiting placement. 10/28: Similar to yesterday. No change in presentation. 10/29: Pt reports feeling good ;pt stated, just waiting for a place to live . denies any issues at this time. 10/30: calm, cooperative. active on unit, social with select peers, attending groups. Pt reports feeling worried about where I am going to live . denies any issues at this time. 10/21: no change in presentation. continue current tx plan. 11/01: continue current management and treatment plan. 11/02: Continue current management and treatment plan. 11/03: Continue current management and treatment plan. 11/04: Active on unit. calm, cooperative. social with select peers, attending groups. denies any issues at this time. He reports sleeping well. Pt reports he would be interested in applying for [facility] services; social work aware. 11/05: Active on unit. calm, cooperative. social with select peers, attending groups. denies any issues at this time. Pt reports feeling okay ; he reports anxiety regarding placement. Continue current tx plan. 11/07/23 [facility] referral has appropriate concerns re living stuation cont abilify lamictal 11/08/23 Pt cooperative with care d/c planning working with cont d/c planning cont lamictal abilify 11/12/23 Patient increasingly despairing aware of no clear discharge plan periods needs cuing for much functioning limited social engaged needs help regarding diabetes and medication compliance reportedly had been rejected by multiple rest homes patient not threatening intermittently hopeless helpless very limited family contact at this time 11/13/23 pt flat depressed hopeless helpless unable to fx without structure 11/15 continue tx. 11/16 continue tx. Reason for continued inpatient stay Substantial Risk for: inability to function Time Spent With Patient Time: Total time managing care of this patient today ____ minutes.
[2023-11-17 13:03] LABS: Glucose, Whole Blood 109 mg/dL (60-115)
[2023-11-17 13:45] LABS: Creatinine Clr Calc Pharmacy 96.1; Estimated Glomerular Filt Rate > 60
[2023-11-17] MEDS: metFORMIN HCl ER 500 MG TAB.ER.24H 1000 MG PO (17:18)
[2023-11-17 17:41] LABS: Glucose, Whole Blood 98 mg/dL (60-115)
[2023-11-17 19:42] VITALS: BP 130/62; PULSE 82; RESP 18; TEMP 36.8; O2SAT 96
[2023-11-17 20:14] LABS: Glucose, Whole Blood 211 mg/dL (60-115)
[2023-11-17] MEDS: Insulin Lispro 100 UNIT/ML 3 ML VIAL SUBCUT (20:17)
[2023-11-17] MEDS: Insulin Glargine,Hum.rec.anlog 100 UNIT/ML 10 ML VIAL 20 UNIT SUBCUT (20:17)
[2023-11-17] MEDS: lamoTRIgine 100 MG TABLET PO (20:18)
[2023-11-17] MEDS: ARIPiprazole 10 MG TABLET PO (20:18)
[2023-11-18 07:46] VITALS: BP 124/64; PULSE 78; RESP 16; TEMP 36.4; O2SAT 95
[2023-11-18 08:40] LABS: Glucose, Whole Blood 93 mg/dL (60-115)
[2023-11-18] MEDS: Memantine HCl 5 MG TABLET PO ×2 (09:00→20:35)
[2023-11-18] MEDS: Simethicone 80 MG TAB.CHEW PO ×4 (09:00→20:35)
[2023-11-18] MEDS: Sertraline HCL 100 MG TABLET PO (09:00)
[2023-11-18] MEDS: Levothyroxine Sodium 200 MCG TABLET PO (09:00)
[2023-11-18 12:40] LABS: Glucose, Whole Blood 169 mg/dL (60-115)
[2023-11-18] MEDS: Insulin Lispro 100 UNIT/ML 3 ML VIAL SUBCUT ×2 (12:55→18:08)
[2023-11-18 14:34] LABS: TSH reflex Free T4 0.22 uIU/mL (0.32-4.0)
[2023-11-18 15:30] LABS: Free T4 (Free Thyroxine) 1.34 ng/dL (0.71-1.85)
[2023-11-18] MEDS: metFORMIN HCl ER 500 MG TAB.ER.24H 1000 MG PO (17:59)
[2023-11-18 18:00] LABS: Glucose, Whole Blood 180 mg/dL (60-115)
[2023-11-18 19:48] VITALS: BP 123/68; PULSE 85; RESP 18; TEMP 36.6; O2SAT 96
[2023-11-18 20:15] LABS: Glucose, Whole Blood 141 mg/dL (60-115)
[2023-11-18] MEDS: lamoTRIgine 100 MG TABLET PO (20:35)
[2023-11-18] MEDS: ARIPiprazole 10 MG TABLET PO (20:35)
[2023-11-18] MEDS: Insulin Glargine,Hum.rec.anlog 100 UNIT/ML 10 ML VIAL 20 UNIT SUBCUT (20:37)
--- NOTE | 2023-11-18 22:47 | HO.PSYCHPN ---
Subjective Subjective Date of Service: 11/18/23 Reason For Visit: paranoia cognitive impairment Subjective Notes: Conditional Voluntary Healthcare Proxy: Yes Mental Status Exam Mental Status Exam Patient Appearance: Fatigued Patient Orientation: Person, Place and Situation Level of Consciousness: Awake Patient Behavior: Appropriate and Cooperative Mood Description: Calm Affect Description: Blunted Patient Cognition Impaired: Yes Ability to Follow Directions: Fair Speech Pattern: Clear and Soft-Spoken 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: Penitentiary Impaired Thought Content: positive for [place] and positive for Poverty of Content Depressive Symptoms: Increased Fatigue and Loss of Energy Judgement: Fair Diagnostics Vital Signs (24Hr): Vital Signs - 24 hr 11/18/23 07:46 11/18/23 19:48 Temperature 97.6 F 98 F Pulse Rate 78 85 Respiratory Rate 16 18 Blood Pressure 124/64 123/68 Pulse Oximetry 95 96 Oxygen Delivery Method Room Air Room Air BMI result Body Mass Index 31.9 Labs 09/10/23 20:00 11/17/23 13:23 Labs: Laboratory Results - last 48 hr 11/17/23 11/17/23 11/17/23 08:38 12:59 13:23 Creatinine 0.96 Estim Creat Clear Calc 96.1 Estimated GFR > 60 POC Glucose 117 H 109 TSH Free T4 11/17/23 11/17/23 11/18/23 17:37 20:03 08:35 Creatinine Estim Creat Clear Calc Estimated GFR POC Glucose 98 211 H 93 TSH Free T4 11/18/23 11/18/23 11/18/23 12:35 13:26 17:54 Creatinine Estim Creat Clear Calc Estimated GFR POC Glucose 169 H 180 H TSH 0.22 L Free T4 1.34 11/18/23 20:01 Creatinine Estim Creat Clear Calc Estimated GFR POC Glucose 141 H TSH Free T4 Imaging Radiology Impressions: ITS Impressions Brain MRI 09/19/23 20:33 IMPRESSION: 1. No demonstrated acute intracranial abnormalities. 2. Chronic mild to moderate nonspecific white matter changes, most notably in the deep white matter of the right frontal lobe. Mild to moderate generalized cerebral volume loss. Medications Medications Current Medications Acetaminophen (Acetaminophen 325 Mg Tablet) 650 mg PO Q6H PRN PRN Reason: Headache/Pain Mild Scale (1-3) Last Admin: 10/13/23 09:39 Dose: 650 mg Al Hydroxide/Mg Hydroxide (Magnesium Hydrox/Alum Hydrox 30 Ml Oral.Susp) 30 ml PO Q6H PRN PRN Reason: Heartburn/Nausea Aripiprazole (Aripiprazole 10 Mg Tablet) 10 mg PO BEDTIME [facility] Last Admin: 11/18/23 20:35 Dose: 10 mg Benztropine Mesylate (Benztropine Mesylate 0.5 Mg Tablet) 0.5 mg PO TID PRN PRN Reason: Extrapyramidal Effects Glucose (Glucose Gel 15 Gm Gel..Gram.) 15 gm PO Q15M PRN; Protocol PRN Reason: per Hypoglycemia Standing Ord. Hydroxyzine HCl (Hydroxyzine Hcl 25 Mg Tablet) 25 mg PO Q6H PRN PRN Reason: Anxiety Last Admin: 10/27/23 20:38 Dose: 25 mg Dextrose (D10) 250 mls @ 750 mls/hr IV Q15M PRN; Protocol PRN Reason: per Hypoglycemia Standing Ord. Insulin Glargine (Insulin Glargine,Hum.Rec.Anlog 100 Unit/Ml 10 Ml Vial) 20 unit SUBCUT BEDTIME [facility] Last Admin: 11/18/23 20:37 Dose: 20 unit Insulin Human Lispro (Insulin Lispro 100 Unit/Ml 3 Ml Vial) 0 unit SUBCUT QIDACHS [facility]; Protocol Last Admin: 11/18/23 20:38 Dose: Not Given Lamotrigine (Lamotrigine 100 Mg Tablet) 100 mg PO BEDTIME [facility] Last Admin: 11/18/23 20:35 Dose: 100 mg Levothyroxine Sodium (Levothyroxine Sodium 200 Mcg Tablet) 200 mcg PO DAILY [facility] Last Admin: 11/18/23 09:00 Dose: 200 mcg Magnesium Hydroxide (Milk Of Magnesia 30 Ml Oral.Susp) 30 ml PO DAILY PRN PRN Reason: Constipation Memantine (Memantine Hcl 5 Mg Tablet) 5 mg PO BID [facility] Last Admin: 11/18/23 20:35 Dose: 5 mg Metformin HCl (Metformin Hcl Er 500 Mg Tab.Er.24h) 1,000 mg PO DAILY@1700 [facility] Last Admin: 11/18/23 17:59 Dose: 1,000 mg Nicotine Polacrilex (Nicotine Polacrilex 2 Mg Gum) 4 mg BUCCAL Q2H PRN PRN Reason: Nicotine Cravings Sertraline HCl (Sertraline Hcl 100 Mg Tablet) 100 mg PO DAILY [facility] Last Admin: 11/18/23 09:00 Dose: 100 mg Simethicone (Simethicone 80 Mg Tab.Chew) 80 mg PO QID[facility]NA[facility] Last Admin: 11/18/23 20:35 Dose: 80 mg Trazodone HCl (Trazodone Hcl 50 Mg Tablet) 50 mg PO BEDTIME MRX1 PRN PRN Reason: Insomnia Last Admin: 11/10/23 20:29 Dose: 50 mg Allergies Allergies Allergy/AdvReac Type Severity Reaction Status Date / Time amoxicillin [AMOXICILLIN] Allergy Mild VOMITING/ABD Verified 09/10/23 19:44 PAIN Assessment & Plan Assessment & Plan (1) Schizoaffective disorder: Status: Acute Code(s): F25.9 - Schizoaffective disorder, unspecified (2) Hypothyroidism: Status: Acute Code(s): E03.9 - Hypothyroidism, unspecified (3) Type 2 diabetes mellitus: Status: Acute Code(s): E11.9 - Type 2 diabetes mellitus without complications (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 Plan: CV 15 minute safety checks Continue home medications: Haldol 10mg PO daily Synthroid 200mcg PO daily Obtain labs; A1C/POCs Obtain collateral from sister Obtain records from last hospitalization. MOCA Referral for DMH services if patient is agreeable. encourage medication compliance;consider VARGAS discharge planning 09/11: Elevated fasting blood sugar elevated hemoglobin A1c 9.2 med consult placed put in point of care needed will start metformin Would benefit from clarity over recent hospitalization what this were done details regarding treatment continue Haldol unclear if patient has Healthcare proxy his [place] was low slowed cognition with poor details in depth at times during blankly regarding making judgments Unclear if any of this relates to past coma or 2 hypothyroidism. He does seem more impaired than when last seen unclear when last imaging was. Continue Haldol sitter neuro indira involvement regarding diagnostic picture. Patient does remain paranoid blunted suspicious apathetic. He might benefit from longer-term placement if available and appropriate at a later time involved DMH involvement would be quite helpful 09/12: cont haldol get records ? hcp ? start antidep unclear hx 09/13: Keeping to self. More talkative today. Pt concerned he will be transferred to [facility]. Pt stated, The paper I signed yesterday. Are you going to send me back to the last hospital? That place was horrible . Pt was educated he signed a release of information with Dr. Gonzalez to obtain records from [facility]. Pt was given a copy of the release he signed. Despite this, pt continues to be anxious about being transferred. Pt denies SI/HI/VH/AH. 09/14: Keeping to self. active on unit. showered. Pt reports feeling alright today; pt reports he is worried about where I'm going to go . Pt continues concerned he will be transferred to [facility]. Pt denies SI/HI/VH/AH. 09/15:Pt reports feeling alright today; pt continues to report he is worried about where I'm going to go . Responding with brief responses. Guarded. Observed standing in one place for a long period of time. Appears confused. Pt denies SI/HI/VH/AH. T/W spoke to patient's sister, Ros, with patients verbal consent. Ros reports concerns regarding patients ability to make decisions regarding his mental and physical health. She plans on contacting legal advice on obtaining guardianship of patient. 09/16:Patient's presents similar to yesterday's presentation. Responding with brief responses. Guarded. Observed standing in one place for a long period of time, when asked what he is doing, pt stated, I don't know . Pt reports he plans on contacting his sister today and try to convince her for me to stay there . Pt denies SI/HI/VH/AH. Continue current tx plan. 09/17: brief responses. Guarded. 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 Pt denies SI/HI/VH/AH. T/W and Dr. Gonzalez spoke to patient's sister, Ros. Ros stated being [facility] HCP and plans on finding document. She plans on coming to the hospital on Saturday to be present for [facility] intake. 09/21: No changes 09/22:Patient flat apathetic difficult insight and judgment his sister is healthcare proxy if needed patient is accepting medical treatment Referral to [facility] 09/23:Considers starting Haldol Decanoate patient is agreeable superficially difficulty with exec fx was seen [facility] 09/24:Pt seen in f/u mood flat dysphoric difficulty engaging in conversation preoccupied with thought he wont be living with family thing slowed apathetic no clear response with namenda ? some improvement inc lamictal start low dose sertraline inc lamictal ck tsh 09/25:Start Abilify as augmentation with Haldol see if can be more stimulating regarding depressed mood apathetic limited engagement sertraline 50 mg Lamictal 25 b.i.d. referral to [facility] which would have structure unclear if patient can engage with this he remains quite depressed has delusional beliefs regarding housing and that things have been done he has repeatedly tried to reach out to his sister denies active SI needs much help dressing talking with others encouragement to eat severe thought blocking Abilify might be more stimulating than Haldol which can be more dulling 09/26:Abilify started sertraline Lamictal encouraged step-down to [facility] encourage reality orientation denies active SI 09/27: Continue current regimen and plans 09/28: Continue current regimen and plans. 09/29: [facility] increase Abilify to 5 mg daily eventually try and taper Haldol sertraline 50 mg daily 09/30:Increase Abilify to 10 mg lower Haldol to 7 mg continue sertraline and Lamictal 10/01:Abilify increased to 10 mg continue to taper Haldol sertraline 100 mg Lamictal increased to 75 mg patient apathetic withdrawn difficulty with placement some paranoia continues difficulty with decision making at times. Not physically aggressive internally preoccupied seems somewhat improved with Abilify sertraline Continue discharge planning 10/02:Patient somewhat blunted flat slowed thinking during the day times staring. Change Abilify to 10 mg at bedtime. Scheduled Haldol will lowered to 2.5 mg Continue sertraline 100 mg Namenda 5 b.i.d. 10/03:Haldol discontinued modafinil low-dose monitor for psychosis or agitation continue discharge planning 10/06: May need to firm healthcare proxy calls have been placed to sister to try to help in discharge planning. Referrals made. Patient cooperative with care 10/07:Pharmacy ordering Abilify maintain a increase modafinil 100 mg patient remains flat passive depressed some improvement noted no current paranoia noted continue discharge planning no current safe discharge plan 10/08: Increase Lamictal 100 mg Abilify Maintena 400 mg hold modafinil unclear if was overly stimulating patient continues to present internally preoccupied. 10/09:Healthcare proxy invoked discharge planning continue Lamictal Abilify pending maintain a 10/10:Healthcare proxy invoked new CV signed discharge planning. 10/11 keep same treatment 10/12 keep same treatment 10/13: Continue plan of care Lamictal Abilify discharge planning sertraline 10/14: stable. continue current mgmt. 10/15: stable. continue current mgmt. 10/16: stable presentation. continue current mgmt. 10/17: as for yesterday. 10/18: no changes. 10/19: stabel, safe. no change. 10/20: no change in presentation. calm, cooperative. active on unit, social with select peers, attending groups. Pt reports feeling alright . denies SI/HI/VH/AH. Social work waiting to hear from possible placement location. Continue current tx plan. 10/21: continue current tx plan. awaiting placement. 10/22: calm, cooperative. active on unit, social with select peers, attending groups. Pt reports feeling good ; pt stated, I'm waiting to see where I'm going . denies SI/HI/VH/AH. Showered with encouragement. 10/23: continue current tx plan. 10/24: calm, cooperative. active on unit, social with select peers, attending groups. Pt reports feeling good ; pt stated, I just want a place to live . 10/25- likely at baseline for him- CTP 10/26 CTP likely needs placement 10/27: continue current tx plan. awaiting placement. 10/28: Similar to yesterday. No change in presentation. 10/29: Pt reports feeling good ;pt stated, just waiting for a place to live . denies any issues at this time. 10/30: calm, cooperative. active on unit, social with select peers, attending groups. Pt reports feeling worried about where I am going to live . denies any issues at this time. 10/21: no change in presentation. continue current tx plan. 11/01: continue current management and treatment plan. 11/02: Continue current management and treatment plan. 11/03: Continue current management and treatment plan. 11/04: Active on unit. calm, cooperative. social with select peers, attending groups. denies any issues at this time. He reports sleeping well. Pt reports he would be interested in applying for [facility] services; social work aware. 11/05: Active on unit. calm, cooperative. social with select peers, attending groups. denies any issues at this time. Pt reports feeling okay ; he reports anxiety regarding placement. Continue current tx plan. 11/07/23 DM referral has appropriate concerns re living stuation cont abilify lamictal 11/08/23 Pt cooperative with care d/c planning working with cont d/c planning cont lamictal abilify 11/12/23 Patient increasingly despairing aware of no clear discharge plan periods needs cuing for much functioning limited social engaged needs help regarding diabetes and medication compliance reportedly had been rejected by multiple rest homes patient not threatening intermittently hopeless helpless very limited family contact at this time 11/13/23 pt flat depressed hopeless helpless unable to fx without structure 11/15 continue tx. 11/16 continue tx. 11/18/2023 Continue plan of care referral to [facility] TSH low will decrease levothyroxine Reason for continued inpatient stay Substantial Risk for: inability to function, rapid decompensation and med/psych decompensation Time Spent With Patient Time: Total time managing care of this patient today ____ minutes.
[2023-11-19 08:00] VITALS: BP 115/62; PULSE 78; RESP 16; TEMP 36.9; O2SAT 95
[2023-11-19] MEDS: Levothyroxine Sodium 200 MCG TABLET PO (08:45)
[2023-11-19] MEDS: Simethicone 80 MG TAB.CHEW PO ×4 (08:45→20:31)
[2023-11-19] MEDS: Sertraline HCL 100 MG TABLET PO (08:45)
[2023-11-19] MEDS: Memantine HCl 5 MG TABLET PO ×2 (08:45→20:32)
[2023-11-19 08:54] LABS: Glucose, Whole Blood 104 mg/dL (60-115)
[2023-11-19 12:31] LABS: Glucose, Whole Blood 217 mg/dL (60-115)
[2023-11-19] MEDS: Insulin Lispro 100 UNIT/ML 3 ML VIAL SUBCUT ×2 (12:50→20:33)
[2023-11-19] MEDS: metFORMIN HCl ER 500 MG TAB.ER.24H 1000 MG PO (17:01)
[2023-11-19 17:53] LABS: Glucose, Whole Blood 109 mg/dL (60-115)
[2023-11-19 20:00] VITALS: BP 115/62; PULSE 78; RESP 16; TEMP 36.9; O2SAT 95
[2023-11-19 20:25] LABS: Glucose, Whole Blood 248 mg/dL (60-115)
[2023-11-19] MEDS: lamoTRIgine 100 MG TABLET PO (20:32)
[2023-11-19] MEDS: ARIPiprazole 10 MG TABLET PO (20:32)
[2023-11-19] MEDS: Insulin Glargine,Hum.rec.anlog 100 UNIT/ML 10 ML VIAL 20 UNIT SUBCUT (20:33)
--- NOTE | 2023-11-19 21:59 | P.PNPSI_ITS ---
Subjective Subjective Date of Service: 11/19/23 Reason For Visit: paranoia cognitive impairment Subjective Notes: Conditional Voluntary Interim History: pt withdrawn flat less engaged Medication Compliance: Yes Mental Status Exam Mental Status Exam Patient Appearance: Fatigued Patient Orientation: Person, Place and Situation Level of Consciousness: Awake Patient Behavior: Appropriate and Cooperative Mood Description: Calm, Blunted and Flat Affect Description: Blunted Patient Cognition Impaired: Yes Ability to Follow Directions: Fair Speech Pattern: Clear and Soft-Spoken 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: Nursing Home Impaired Thought Content: positive for [place] and positive for Poverty of Content Depressive Symptoms: Increased Fatigue and Loss of Energy Judgement: Fair Diagnostics Vital Signs (24Hr): Vital Signs - 24 hr 11/19/23 08:00 11/19/23 20:00 Temperature 98.4 F 98.4 F Pulse Rate 78 78 Respiratory Rate 16 16 Blood Pressure 115/62 115/62 Pulse Oximetry 95 95 Oxygen Delivery Method Room Air Room Air BMI result Body Mass Index 31.9 Labs 09/10/23 20:00 11/17/23 13:23 Labs: Laboratory Results - last 48 hr 11/18/23 11/18/23 11/18/23 08:35 12:35 13:26 POC Glucose 93 169 H TSH 0.22 L Free T4 1.34 11/18/23 11/18/23 11/19/23 17:54 20:01 08:45 POC Glucose 180 H 141 H 104 TSH Free T4 11/19/23 11/19/23 11/19/23 12:18 17:42 20:21 POC Glucose 217 H 109 248 H TSH Free T4 Imaging Radiology Impressions: ITS Impressions Brain MRI 09/19/23 20:33 IMPRESSION: 1. No demonstrated acute intracranial abnormalities. 2. Chronic mild to moderate nonspecific white matter changes, most notably in the deep white matter of the right frontal lobe. Mild to moderate generalized cerebral volume loss. Medications Medications Current Medications Acetaminophen (Acetaminophen 325 Mg Tablet) 650 mg PO Q6H PRN PRN Reason: Headache/Pain Mild Scale (1-3) Last Admin: 10/13/23 09:39 Dose: 650 mg Al Hydroxide/Mg Hydroxide (Magnesium Hydrox/Alum Hydrox 30 Ml Oral.Susp) 30 ml PO Q6H PRN PRN Reason: Heartburn/Nausea Aripiprazole (Aripiprazole 10 Mg Tablet) 10 mg PO BEDTIME MANAS Last Admin: 09/17/24 20:32 Dose: 10 mg Benztropine Mesylate (Benztropine Mesylate 0.5 Mg Tablet) 0.5 mg PO TID PRN PRN Reason: Extrapyramidal Effects Glucose (Glucose Gel 15 Gm Gel..Gram.) 15 gm PO Q15M PRN; Protocol PRN Reason: per Hypoglycemia Standing Ord. Hydroxyzine HCl (Hydroxyzine Hcl 25 Mg Tablet) 25 mg PO Q6H PRN PRN Reason: Anxiety Last Admin: 10/27/23 20:38 Dose: 25 mg Dextrose (D10) 250 mls @ 750 mls/hr IV Q15M PRN; Protocol PRN Reason: per Hypoglycemia Standing Ord. Insulin Glargine (Insulin Glargine,Hum.Rec.Anlog 100 Unit/Ml 10 Ml Vial) 20 unit SUBCUT BEDTIME [facility] Last Admin: 11/19/23 20:33 Dose: 20 unit Insulin Human Lispro (Insulin Lispro 100 Unit/Ml 3 Ml Vial) 0 unit SUBCUT QIDACHS [facility]; Protocol Last Admin: 11/19/23 20:33 Dose: 4 unit Lamotrigine (Lamotrigine 100 Mg Tablet) 100 mg PO BEDTIME [facility] Last Admin: 11/19/23 20:32 Dose: 100 mg Levothyroxine Sodium (Levothyroxine Sodium 200 Mcg Tablet) 200 mcg PO DAILY [facility] Last Admin: 11/19/23 08:45 Dose: 200 mcg Magnesium Hydroxide (Milk Of Magnesia 30 Ml Oral.Susp) 30 ml PO DAILY PRN PRN Reason: Constipation Memantine (Memantine Hcl 5 Mg Tablet) 5 mg PO BID [facility] Last Admin: 11/19/23 20:32 Dose: 5 mg Metformin HCl (Metformin Hcl Er 500 Mg Tab.Er.24h) 1,000 mg PO DAILY@1700 [facility] Last Admin: 11/19/23 17:01 Dose: 1,000 mg Nicotine Polacrilex (Nicotine Polacrilex 2 Mg Gum) 4 mg BUCCAL Q2H PRN PRN Reason: Nicotine Cravings Sertraline HCl (Sertraline Hcl 100 Mg Tablet) 100 mg PO DAILY [facility] Last Admin: 11/19/23 08:45 Dose: 100 mg Simethicone (Simethicone 80 Mg Tab.Chew) 80 mg PO QIDWMHS [facility] Last Admin: 11/19/23 20:31 Dose: 80 mg Trazodone HCl (Trazodone Hcl 50 Mg Tablet) 50 mg PO BEDTIME MRX1 PRN PRN Reason: Insomnia Last Admin: 11/10/23 20:29 Dose: 50 mg Allergies Allergies Allergy/AdvReac Type Severity Reaction Status Date / Time amoxicillin [AMOXICILLIN] Allergy Mild VOMITING/ABD Verified 09/10/23 19:44 PAIN Assessment & Plan Assessment & Plan (1) Schizoaffective disorder: Status: Acute Code(s): F25.9 - Schizoaffective disorder, unspecified (2) Hypothyroidism: Status: Acute Code(s): E03.9 - Hypothyroidism, unspecified (3) Type 2 diabetes mellitus: Status: Acute Code(s): E11.9 - Type 2 diabetes mellitus without complications (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 on a [place] 12 d/t disorganized behavior, concern for his memory impairment, medications noncompliance and poor ADLs. Plan: CV 15 minute safety checks Continue home medications: Haldol 10mg PO daily Synthroid 200mcg PO daily Obtain labs; A1C/POCs Obtain collateral from sister Obtain records from last hospitalization. MOCA Referral for [facility] services if patient is agreeable. encourage medication compliance;consider [facility]AS discharge planning 09/11: Elevated fasting blood sugar elevated hemoglobin A1c 9.2 med consult placed put in point of care needed will start metformin Would benefit from clarity over recent hospitalization what this were done details regarding treatment continue Haldol unclear if patient has Healthcare proxy his [place] was low slowed cognition with poor details in depth at times during blankly regarding making judgments Unclear if any of this relates to past coma or 2 hypothyroidism. He does seem more impaired than when last seen unclear when last imaging was. Continue Haldol sitter neuro indira involvement regarding diagnostic picture. Patient does remain paranoid blunted suspicious apathetic. He might benefit from longer- term placement if available and appropriate at a later time involved [facility] involvement would be quite helpful 09/12: cont haldol get records ? hcp ? start antidep unclear hx 09/13: Keeping to self. More talkative today. Pt concerned he will be transferred to [facility]. Pt stated, The paper I signed yesterday. Are you going to send me back to the last hospital? That place was horrible . Pt was educated he signed a release of information with Dr. Gonzalez to obtain records from [facility]. Pt was given a copy of the release he signed. Despite this, pt continues to be anxious about being transferred. Pt denies SI/HI/VH/AH. 09/14: Keeping to self. active on unit. showered. Pt reports feeling alright today; pt reports he is worried about where I'm going to go . Pt continues concerned he will be transferred to [facility]. Pt denies SI/HI/VH/AH. 09/15:Pt reports feeling alright today; pt continues to report he is worried about where I'm going to go . Responding with brief responses. Guarded. Observed standing in one place for a long period of time. Appears confused. Pt denies SI/HI/VH/AH. T/W spoke to patient's sister, Ros, with patients verbal consent. Ros reports concerns regarding patients ability to make decisions regarding his mental and physical health. She plans on contacting legal advice on obtaining guardianship of patient. 09/16:Patient's presents similar to yesterday's presentation. Responding with brief responses. Guarded. Observed standing in one place for a long period of time, when asked what he is doing, pt stated, I don't know . Pt reports he plans on contacting his sister today and try to convince her for me to stay there . Pt denies SI/HI/VH/AH. Continue current tx plan. 09/17: brief responses. Guarded. 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 Pt denies SI/HI/VH/AH. T/W and Dr. Gonzalez spoke to patient's sister, Ros. Ros stated being [facility] HCP and plans on finding document. She plans on coming to the hospital on Saturday to be present for [facility] intake. 09/21: No changes 09/22:Patient flat apathetic difficult insight and judgment his sister is healthcare proxy if needed patient is accepting medical treatment Referral to [facility] 09/23:Considers starting Haldol Decano[place] patient is agreeable superficially difficulty with exec fx was seen [facility] 09/24:Pt seen in f/u mood flat dysphoric difficulty engaging in conversation preoccupied with thought he wont be living with family thing slowed apathetic no clear response with namenda ? some improvement inc lamictal start low dose sertraline inc lamictal ck tsh 09/25:Start Abilify as augmentation with Haldol see if can be more stimulating regarding depressed mood apathetic limited engagement sertraline 50 mg Lamictal 25 b.i.d. referral to [facility] which would have structure unclear if patient can engage with this he remains quite depressed has delusional beliefs regarding housing and that things have been done he has repeatedly tried to reach out to his sister denies active SI needs much help dressing talking with others encouragement to eat severe thought blocking Abilify might be more stimulating than Haldol which can be more dulling 09/26:Abilify started sertraline Lamictal encouraged step-down to [facility] encourage reality orientation denies active SI 09/27: Continue current regimen and plans 09/28: Continue current regimen and plans. 09/29: Referral to [facility] increase Abilify to 5 mg daily eventually try and taper Haldol sertraline 50 mg daily 09/30:Increase Abilify to 10 mg lower Haldol to 7 mg continue sertraline and Lamictal 10/01:Abilify increased to 10 mg continue to taper Haldol sertraline 100 mg Lamictal increased to 75 mg patient apathetic withdrawn difficulty with placement some paranoia continues difficulty with decision making at times. Not physically aggressive internally preoccupied seems somewhat improved with Abilify sertraline Continue discharge planning 10/02:Patient somewhat blunted flat slowed thinking during the day times staring. Change Abilify to 10 mg at bedtime. Scheduled Haldol will lowered to 2.5 mg Continue sertraline 100 mg Namenda 5 b.i.d. 10/03:Haldol discontinued modafinil low-dose monitor for psychosis or agitation continue discharge planning 10/06: May need to firm healthcare proxy calls have been placed to sister to try to help in discharge planning. Referrals made. Patient cooperative with care 10/07:Pharmacy ordering Abilify maintain a increase modafinil 100 mg patient remains flat passive depressed some improvement noted no current paranoia noted continue discharge planning no current safe discharge plan 10/08: Increase Lamictal 100 mg Abilify Maintena 400 mg hold modafinil unclear if was overly stimulating patient continues to present internally preoccupied. 10/09:Healthcare proxy invoked discharge planning continue Lamictal Abilify pending maintain a 10/10:Healthcare proxy invoked new CV signed discharge planning. 10/11 keep same treatment 10/12 keep same treatment 10/13: Continue plan of care Lamictal Abilify discharge planning sertraline 10/14: stable. continue current mgmt. 10/15: stable. continue current mgmt. 10/16: stable presentation. continue current mgmt. 10/17: as for yesterday. 10/18: no changes. 10/19: stabel, safe. no change. 10/20: no change in presentation. calm, cooperative. active on unit, social with select peers, attending groups. Pt reports feeling alright . denies SI/HI/VH/AH. Social work waiting to hear from possible placement location. Continue current tx plan. 10/21: continue current tx plan. awaiting placement. 10/22: calm, cooperative. active on unit, social with select peers, attending groups. Pt reports feeling good ; pt stated, I'm waiting to see where I'm going . denies SI/HI/VH/AH. Showered with encouragement. 10/23: continue current tx plan. 10/24: calm, cooperative. active on unit, social with select peers, attending groups. Pt reports feeling good ; pt stated, I just want a place to live . 10/25- likely at baseline for him- CTP 10/26 CTP likely needs placement 10/27: continue current tx plan. awaiting placement. 10/28: Similar to yesterday. No change in presentation. 10/29: Pt reports feeling good ;pt stated, just waiting for a place to live . denies any issues at this time. 10/30: calm, cooperative. active on unit, social with select peers, attending groups. Pt reports feeling worried about where I am going to live . denies any issues at this time. 10/21: no change in presentation. continue current tx plan. 11/01: continue current management and treatment plan. 11/02: Continue current management and treatment plan. 11/03: Continue current management and treatment plan. 11/04: Active on unit. calm, cooperative. social with select peers, attending groups. denies any issues at this time. He reports sleeping well. Pt reports he would be interested in applying for [facility] services; social work aware. 11/05: Active on unit. calm, cooperative. social with select peers, attending groups. denies any issues at this time. Pt reports feeling okay ; he reports anxiety regarding placement. Continue current tx plan. 11/07/23 [facility] referral has appropriate concerns re living stuation cont abilify lamictal 11/08/23 Pt cooperative with care d/c planning working with cont d/c planning cont lamictal abilify 11/12/23 Patient increasingly despairing aware of no clear discharge plan periods needs cuing for much functioning limited social engaged needs help regarding diabetes and medication compliance reportedly had been rejected by multiple rest homes patient not threatening intermittently hopeless helpless very limited family contact at this time 11/13/23 pt flat depressed hopeless helpless unable to fx without structure 11/15 continue tx. 11/16 continue tx. 11/18/2023 Continue plan of care referral to [facility] TSH low will decrease levothyroxine 11/19/23 Pt flat dysphor ic inc hopeless helpless lamictal 150 hs dec levothyroxine 150 d/c planning cont Reason for continued inpatient stay Substantial Risk for: inability to function, rapid decompensation and med/psych decompensation Time Spent With Patient Time: Total time managing care of this patient today ____ minutes.
--- NOTE | 2023-11-20 00:34 | PC.NURSE ---
Joe requested that this nurse to not wake him up at 0600 to give him levothyroxine. Patient stated he normally takes it at 0900 and would like to sleep.
[2023-11-20] MEDS: Sertraline HCL 100 MG TABLET PO (08:32)
[2023-11-20] MEDS: Memantine HCl 5 MG TABLET PO ×2 (08:32→21:11)
[2023-11-20] MEDS: Simethicone 80 MG TAB.CHEW PO ×4 (08:34→21:11)
[2023-11-20] MEDS: Levothyroxine Sodium 150 MCG TABLET PO (08:34)
[2023-11-20 08:41] LABS: Glucose, Whole Blood 106 mg/dL (60-115)
[2023-11-20 12:44] LABS: Glucose, Whole Blood 146 mg/dL (60-115)
[2023-11-20] MEDS: metFORMIN HCl ER 500 MG TAB.ER.24H 1000 MG PO (16:26)
[2023-11-20 17:46] LABS: Glucose, Whole Blood 118 mg/dL (60-115)
[2023-11-20 20:00] VITALS: BP 124/65; PULSE 80; RESP 16; TEMP 36.8; O2SAT 96
[2023-11-20 20:55] LABS: Glucose, Whole Blood 160 mg/dL (60-115)
[2023-11-20] MEDS: Insulin Glargine,Hum.rec.anlog 100 UNIT/ML 10 ML VIAL 20 UNIT SUBCUT (21:09)
[2023-11-20] MEDS: Insulin Lispro 100 UNIT/ML 3 ML VIAL SUBCUT (21:09)
[2023-11-20] MEDS: lamoTRIgine 100 MG TABLET 150 MG PO (21:11)
[2023-11-20] MEDS: ARIPiprazole 10 MG TABLET PO (21:11)
[2023-11-21] MEDS: Levothyroxine Sodium 150 MCG TABLET PO (08:26)
[2023-11-21] MEDS: Simethicone 80 MG TAB.CHEW PO ×4 (08:26→22:40)
[2023-11-21] MEDS: Sertraline HCL 100 MG TABLET PO (08:26)
[2023-11-21] MEDS: Memantine HCl 5 MG TABLET PO ×2 (08:26→21:15)
[2023-11-21 08:33] LABS: Glucose, Whole Blood 113 mg/dL (60-115)
--- NOTE | 2023-11-21 09:47 | HO.PSYCHPN ---
Subjective Subjective Date of Service: 11/21/23 Reason For Visit: paranoia cognitive impairment Subjective Notes: Conditional Voluntary Interim History: Reviewed with Dr. Gonzalez. Keeping to self. Laying in bed most of morning. Pt reports feeling depressed because of the situation . Continues to deny SI/HI/VH/AH. Pt is hoping for housing soon. Medication Compliance: Yes Side effects from medications: No Attending Groups: Intermittent Review of Systems Constitutional: Reports as per HPI Eyes: Reports as per HPI Reports as per HPI Cardiovascular: Reports as per HPI Respiratory: Reports as per HPI Gastrointestinal: Reports as per HPI Genitourinary: Reports as per HPI Musculoskeletal: Reports as per HPI Skin/Breast: Reports as per HPI Reports as per HPI Psychiatric: Reports as per HPI Endocrine: Reports as per HPI Hematologic/Lymphatic: Reports as per HPI Allergic/Immunologic: Reports as per HPI Mental Status Exam Mental Status Exam Patient Appearance: Fatigued Patient Orientation: Person, Place and Situation Level of Consciousness: Awake Patient Behavior: Appropriate and Cooperative Mood Description: Calm, Blunted and Flat Affect Description: Blunted Patient Cognition Impaired: Yes Ability to Follow Directions: Fair Speech Pattern: Clear and Soft-Spoken 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 No demonstrated acute intracranial abnormalities. 2. Chronic mild to moderate nonspecific white matter changes, most notably in the deep white matter of the right frontal lobe. Mild to moderate generalized cerebral volume loss. Medications Medications Current Medications Acetaminophen (Acetaminophen 325 Mg Tablet) 650 mg PO Q6H PRN PRN Reason: Headache/Pain Mild Scale (1-3) Last Admin: 10/13/23 09:39 Dose: 650 mg Al Hydroxide/Mg Hydroxide (Magnesium Hydrox/Alum Hydrox 30 Ml Oral.Susp) 30 ml PO Q6H PRN PRN Reason: Heartburn/Nausea Aripiprazole (Aripiprazole 10 Mg Tablet) 10 mg PO BEDTIME [facility] Last Admin: 11/20/23 21:11 Dose: 10 mg Benztropine Mesylate (Benztropine Mesylate 0.5 Mg Tablet) 0.5 mg PO TID PRN PRN Reason: Extrapyramidal Effects Glucose (Glucose Gel 15 Gm Gel..Gram.) 15 gm PO Q15M PRN; Protocol PRN Reason: per Hypoglycemia Standing Ord. Hydroxyzine HCl (Hydroxyzine Hcl 25 Mg Tablet) 25 mg PO Q6H PRN PRN Reason: Anxiety Last Admin: 10/27/23 20:38 Dose: 25 mg Dextrose (D10) 250 mls @ 750 mls/hr IV Q15M PRN; Protocol PRN Reason: per Hypoglycemia Standing Ord. Insulin Glargine (Insulin Glargine,Hum.Rec.Anlog 100 Unit/Ml 10 Ml Vial) 20 unit SUBCUT BEDTIME [facility] Last Admin: 11/20/23 21:09 Dose: 20 unit Insulin Human Lispro (Insulin Lispro 100 Unit/Ml 3 Ml Vial) 0 unit SUBCUT QIDACHS [facility]; Protocol Last Admin: 11/21/23 08:26 Dose: Not Given Lamotrigine (Lamotrigine 100 Mg Tablet) 150 mg PO BEDTIME [facility] Last Admin: 11/20/23 21:11 Dose: 150 mg Levothyroxine Sodium (Levothyroxine Sodium 150 Mcg Tablet) 150 mcg PO DAILY@0600 [facility] Last Admin: 11/21/23 08:26 Dose: 150 mcg Magnesium Hydroxide (Milk Of Magnesia 30 Ml Oral.Susp) 30 ml PO DAILY PRN PRN Reason: Constipation Memantine (Memantine Hcl 5 Mg Tablet) 5 mg PO BID [facility] Last Admin: 11/21/23 08:26 Dose: 5 mg Metformin HCl (Metformin Hcl Er 500 Mg Tab.Er.24h) 1,000 mg PO DAILY@1700 [facility] Last Admin: 11/20/23 16:26 Dose: 1,000 mg Nicotine Polacrilex (Nicotine Polacrilex 2 Mg Gum) 4 mg BUCCAL Q2H PRN PRN Reason: Nicotine Cravings Sertraline HCl (Sertraline Hcl 100 Mg Tablet) 100 mg PO DAILY [facility] Last Admin: 11/21/23 08:26 Dose: 100 mg Simethicone (Simethicone 80 Mg Tab.Chew) 80 mg PO QIDWMHS [facility] Last Admin: 11/21/23 08:26 Dose: 80 mg Trazodone HCl (Trazodone Hcl 50 Mg Tablet) 50 mg PO BEDTIME MRX1 PRN PRN Reason: Insomnia Last Admin: 11/10/23 20:29 Dose: 50 mg Allergies Allergies Allergy/AdvReac Type Severity Reaction Status Date / Time amoxicillin [AMOXICILLIN] Allergy Mild VOMITING/ABD Verified 09/10/23 19:44 PAIN Assessment & Plan Assessment & Plan (1) Schizoaffective disorder: Status: Acute Code(s): F25.9 - Schizoaffective disorder, unspecified (2) Hypothyroidism: Status: Acute Code(s): E03.9 - Hypothyroidism, unspecified (3) Type 2 diabetes mellitus: Status: Acute Code(s): E11.9 - Type 2 diabetes mellitus without complications (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 Plan: CV 15 minute safety checks Continue home medications: Haldol 10mg PO daily Synthroid 200mcg PO daily Obtain labs; A1C/POCs Obtain collateral from sister Obtain records from last hospitalization. MOCA Referral for [facility] services if patient is agreeable. encourage medication compliance;consider VARGAS discharge planning 09/11: Elevated fasting blood sugar elevated hemoglobin A1c 9.2 med consult placed put in point of care needed will start metformin Would benefit from clarity over recent hospitalization what this were done details regarding treatment continue Haldol unclear if patient has Healthcare proxy his [place] was low slowed cognition with poor details in depth at times during blankly regarding making judgments Unclear if any of this relates to past coma or 2 hypothyroidism. He does seem more impaired than when last seen unclear when last imaging was. Continue Haldol sitter neuro indira involvement regarding diagnostic picture. Patient does remain paranoid blunted suspicious apathetic. He might benefit from longer-term placement if available and appropriate at a later time involved [facility] involvement would be quite helpful 09/12: cont haldol get records ? hcp ? start antidep unclear hx 09/13: Keeping to self. More talkative today. Pt concerned he will be transferred to [facility]. Pt stated, The paper I signed yesterday. Are you going to send me back to the last hospital? That place was horrible . Pt was educated he signed a release of information with Dr. Gonzalez to obtain records from [facility]. Pt was given a copy of the release he signed. Despite this, pt continues to be anxious about being transferred. Pt denies SI/HI/VH/AH. 09/14: Keeping to self. active on unit. showered. Pt reports feeling alright today; pt reports he is worried about where I'm going to go . Pt continues concerned he will be transferred to [facility]. Pt denies SI/HI/VH/AH. 09/15:Pt reports feeling alright today; pt continues to report he is worried about where I'm going to go . Responding with brief responses. Guarded. Observed standing in one place for a long period of time. Appears confused. Pt denies SI/HI/VH/AH. T/W spoke to patient's sister, Ros, with patients verbal consent. Ros reports concerns regarding patients ability to make decisions regarding his mental and physical health. She plans on contacting legal advice on obtaining guardianship of patient. 09/16:Patient's presents similar to yesterday's presentation. Responding with brief responses. Guarded. Observed standing in one place for a long period of time, when asked what he is doing, pt stated, I don't know . Pt reports he plans on contacting his sister today and try to convince her for me to stay there . Pt denies SI/HI/VH/AH. Continue current tx plan. 09/17: brief responses. Guarded. 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 Pt denies SI/HI/VH/AH. T/W and Dr. Gonzalez spoke to patient's sister, Ros. Ros stated being [facility] HCP and plans on finding document. She plans on coming to the hospital on Saturday to be present for [facility] intake. 09/21: No changes 09/22:Patient flat apathetic difficult insight and judgment his sister is healthcare proxy if needed patient is accepting medical treatment Referral to [facility] 09/23:Considers starting Haldol Decanoate patient is agreeable superficially difficulty with exec fx was seen [facility] 09/24:Pt seen in f/u mood flat dysphoric difficulty engaging in conversation preoccupied with thought he wont be living with family thing slowed apathetic no clear response with namenda ? some improvement inc lamictal start low dose sertraline inc lamictal ck tsh 09/25:Start Abilify as augmentation with Haldol see if can be more stimulating regarding depressed mood apathetic limited engagement sertraline 50 mg Lamictal 25 b.i.d. referral to [facility] which would have structure unclear if patient can engage with this he remains quite depressed has delusional beliefs regarding housing and that things have been done he has repeatedly tried to reach out to his sister denies active SI needs much help dressing talking with others encouragement to eat severe thought blocking Abilify might be more stimulating than Haldol which can be more dulling 09/26:Abilify started sertraline Lamictal encouraged step-down to [facility] encourage reality orientation denies active SI 09/27: Continue current regimen and plans 09/28: Continue current regimen and plans. 09/29: Referral to [facility] increase Abilify to 5 mg daily eventually try and taper Haldol sertraline 50 mg daily 09/30:Increase Abilify to 10 mg lower Haldol to 7 mg continue sertraline and Lamictal 10/01:Abilify increased to 10 mg continue to taper Haldol sertraline 100 mg Lamictal increased to 75 mg patient apathetic withdrawn difficulty with placement some paranoia continues difficulty with decision making at times. Not physically aggressive internally preoccupied seems somewhat improved with Abilify sertraline Continue discharge planning 10/02:Patient somewhat blunted flat slowed thinking during the day times staring. Change Abilify to 10 mg at bedtime. Scheduled Haldol will lowered to 2.5 mg Continue sertraline 100 mg Namenda 5 b.i.d. 10/03:Haldol discontinued modafinil low-dose monitor for psychosis or agitation continue discharge planning 10/06: May need to firm healthcare proxy calls have been placed to sister to try to help in discharge planning. Referrals made. Patient cooperative with care 10/07:Pharmacy ordering Abilify maintain a increase modafinil 100 mg patient remains flat passive depressed some improvement noted no current paranoia noted continue discharge planning no current safe discharge plan 10/08: Increase Lamictal 100 mg Abilify Maintena 400 mg hold modafinil unclear if was overly stimulating patient continues to present internally preoccupied. 10/09:Healthcare proxy invoked discharge planning continue Lamictal Abilify pending maintain a 10/10:Healthcare proxy invoked new CV signed discharge planning. 10/11 keep same treatment 10/12 keep same treatment 10/13: Continue plan of care Lamictal Abilify discharge planning sertraline 10/14: stable. continue current mgmt. 10/15: stable. continue current mgmt. 10/16: stable presentation. continue current mgmt. 10/17: as for yesterday. 10/18: no changes. 10/19: stabel, safe. no change. 10/20: no change in presentation. calm, cooperative. active on unit, social with select peers, attending groups. Pt reports feeling alright . denies SI/HI/VH/AH. Social work waiting to hear from possible placement location. Continue current tx plan. 10/21: continue current tx plan. awaiting placement. 10/22: calm, cooperative. active on unit, social with select peers, attending groups. Pt reports feeling good ; pt stated, I'm waiting to see where I'm going . denies SI/HI/VH/AH. Showered with encouragement. 10/23: continue current tx plan. 10/24: calm, cooperative. active on unit, social with select peers, attending groups. Pt reports feeling good ; pt stated, I just want a place to live . 8/24- likely at baseline for him- CTP 10/26 CTP likely needs placement 10/27: continue current tx plan. awaiting placement. 10/28: Similar to yesterday. No change in presentation. 10/29: Pt reports feeling good ;pt stated, just waiting for a place to live . denies any issues at this time. 10/30: calm, cooperative. active on unit, social with select peers, attending groups. Pt reports feeling worried about where I am going to live . denies any issues at this time. 10/21: no change in presentation. continue current tx plan. 11/01: continue current management and treatment plan. 11/02: Continue current management and treatment plan. 11/03: Continue current management and treatment plan. 11/04: Active on unit. calm, cooperative. social with select peers, attending groups. denies any issues at this time. He reports sleeping well. Pt reports he would be interested in applying for [facility] services; social work aware. 11/05: Active on unit. calm, cooperative. social with select peers, attending groups. denies any issues at this time. Pt reports feeling okay ; he reports anxiety regarding placement. Continue current tx plan. 11/06: [facility] referral has appropriate concerns re living stuation cont abilify lamictal 11/07: Pt cooperative with care d/c planning working with cont d/c planning cont lamictal abilify 11/11: Patient increasingly despairing aware of no clear discharge plan periods needs cuing for much functioning limited social engaged needs help regarding diabetes and medication compliance reportedly had been rejected by multiple rest homes patient not threatening intermittently hopeless helpless very limited family contact at this time 11/12: pt flat depressed hopeless helpless unable to fx without structure 11/15 continue tx. 11/16 continue tx. 11/17: Continue plan of care referral to [facility] TSH low will decrease levothyroxine 11/18: Pt flat dysphor ic inc hopeless helpless lamictal 150 hs dec levothyroxine 150 d/c planning cont 11/20: Keeping to self. Laying in bed most of morning. Pt reports feeling depressed because of the situation . Continues to deny SI/HI/VH/AH. Pt is hoping for housing soon. Patient educated on: diagnosis and medication risk/benefits Reason for continued inpatient stay Substantial Risk for: other (waiting for placement.) Time Spent With Patient Time: Total time managing care of this patient today _20___ minutes.
--- NOTE | 2023-11-21 11:12 | P.PNPSI_ITS ---
Subjective Subjective Date of Service: 11/20/23 Reason For Visit: paranoia cognitive impairment Subjective Notes: Conditional Voluntary Interim History: pt calm flat does participate Mental Status Exam Mental Status Exam Patient Appearance: Fatigued Patient Orientation: Person, Place and Situation Level of Consciousness: Awake Patient Behavior: Appropriate and Cooperative Mood Description: Calm, Blunted and Flat Affect Description: Blunted Patient Cognition Impaired: Yes Ability to Follow Directions: Fair Speech Pattern: Clear and Soft-Spoken 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: Alf Impaired Diagnostics Vital Signs (24Hr): Vital Signs - 24 hr 11/20/23 20:00 Temperature 98.2 F Pulse Rate 80 Respiratory Rate 16 Blood Pressure 124/65 Pulse Oximetry 96 Oxygen Delivery Method Room Air BMI result Body Mass Index 31.9 Labs 09/10/23 20:00 11/28/23 07:51 Labs: Laboratory Results - last 48 hr 11/19/23 11/19/23 11/19/23 12:18 17:42 20:21 POC Glucose 217 H 109 248 H 11/20/23 11/20/23 11/20/23 08:29 12:36 17:42 POC Glucose 106 146 H 118 H 11/20/23 11/21/23 20:50 08:25 POC Glucose 160 H 113 Imaging Radiology Impressions: ITS Impressions Brain MRI 09/19/23 20:33 IMPRESSION: 1. No demonstrated acute intracranial abnormalities. 2. Chronic mild to moderate nonspecific white matter changes, most notably in the deep white matter of the right frontal lobe. Mild to moderate generalized cerebral volume loss. Medications Medications Current Medications Acetaminophen (Acetaminophen 325 Mg Tablet) 650 mg PO Q6H PRN PRN Reason: Headache/Pain Mild Scale (1-3) Last Admin: 10/13/23 09:39 Dose: 650 mg Al Hydroxide/Mg Hydroxide (Magnesium Hydrox/Alum Hydrox 30 Ml Oral.Susp) 30 ml PO Q6H PRN PRN Reason: Heartburn/Nausea Aripiprazole (Aripiprazole 10 Mg Tablet) 10 mg PO BEDTIME MANAS Last Admin: 11/20/23 21:11 Dose: 10 mg Benztropine Mesylate (Benztropine Mesylate 0.5 Mg Tablet) 0.5 mg PO TID PRN PRN Reason: Extrapyramidal Effects Glucose (Glucose Gel 15 Gm Gel..Gram.) 15 gm PO Q15M PRN; Protocol PRN Reason: per Hypoglycemia Standing Ord. Hydroxyzine HCl (Hydroxyzine Hcl 25 Mg Tablet) 25 mg PO Q6H PRN PRN Reason: Anxiety Last Admin: 10/27/23 20:38 Dose: 25 mg Dextrose (D10) 250 mls @ 750 mls/hr IV Q15M PRN; Protocol PRN Reason: per Hypoglycemia Standing Ord. Insulin Glargine (Insulin Glargine,Hum.Rec.Anlog 100 Unit/Ml 10 Ml Vial) 20 unit SUBCUT BEDTIME [facility] Last Admin: 11/20/23 21:09 Dose: 20 unit Insulin Human Lispro (Insulin Lispro 100 Unit/Ml 3 Ml Vial) 0 unit SUBCUT QIDACHS [facility]; Protocol Last Admin: 11/21/23 08:26 Dose: Not Given Lamotrigine (Lamotrigine 100 Mg Tablet) 150 mg PO BEDTIME [facility] Last Admin: 11/20/23 21:11 Dose: 150 mg Levothyroxine Sodium (Levothyroxine Sodium 150 Mcg Tablet) 150 mcg PO DAILY@0600 [facility] Last Admin: 11/21/23 08:26 Dose: 150 mcg Magnesium Hydroxide (Milk Of Magnesia 30 Ml Oral.Susp) 30 ml PO DAILY PRN PRN Reason: Constipation Memantine (Memantine Hcl 5 Mg Tablet) 5 mg PO BID [facility] Last Admin: 11/21/23 08:26 Dose: 5 mg Metformin HCl (Metformin Hcl Er 500 Mg Tab.Er.24h) 1,000 mg PO DAILY@1700 [facility] Last Admin: 11/20/23 16:26 Dose: 1,000 mg Nicotine Polacrilex (Nicotine Polacrilex 2 Mg Gum) 4 mg BUCCAL Q2H PRN PRN Reason: Nicotine Cravings Sertraline HCl (Sertraline Hcl 100 Mg Tablet) 100 mg PO DAILY [facility] Last Admin: 11/21/23 08:26 Dose: 100 mg Simethicone (Simethicone 80 Mg Tab.Chew) 80 mg PO QIDWMHS [facility] Last Admin: 11/21/23 08:26 Dose: 80 mg Trazodone HCl (Trazodone Hcl 50 Mg Tablet) 50 mg PO BEDTIME MRX1 PRN PRN Reason: Insomnia Last Admin: 11/10/23 20:29 Dose: 50 mg Allergies Allergies Allergy/AdvReac Type Severity Reaction Status Date / Time amoxicillin [AMOXICILLIN] Allergy Mild VOMITING/ABD Verified 09/10/23 19:44 PAIN Assessment & Plan Assessment & Plan (1) Schizoaffective disorder: Status: Acute Code(s): F25.9 - Schizoaffective disorder, unspecified (2) Hypothyroidism: Status: Acute Code(s): E03.9 - Hypothyroidism, unspecified (3) Type 2 diabetes mellitus: Status: Acute Code(s): E11.9 - Type 2 diabetes mellitus without complications (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 Plan: CV 15 minute safety checks Continue home medications: Haldol 10mg PO daily Synthroid 200mcg PO daily Obtain labs; A1C/POCs Obtain collateral from sister Obtain records from last hospitalization. MOCA Referral for [facility] services if patient is agreeable. encourage medication compliance;consider VARGAS discharge planning 09/11: Elevated fasting blood sugar elevated hemoglobin A1c 9.2 med consult placed put in point of care needed will start metformin Would benefit from clarity over recent hospitalization what this were done details regarding treatment continue Haldol unclear if patient has Healthcare proxy his [place] was low slowed cognition with poor details in depth at times during blankly regarding making judgments Unclear if any of this relates to past coma or 2 hypothyroidism. He does seem more impaired than when last seen unclear when last imaging was. Continue Haldol sitter neuro indira involvement regarding diagnostic picture. Patient does remain paranoid blunted suspicious apathetic. He might benefit from longer- term placement if available and appropriate at a later time involved [facility] involvement would be quite helpful 09/12: cont haldol get records ? hcp ? start antidep unclear hx 09/13: Keeping to self. More talkative today. Pt concerned he will be transferred to [facility]. Pt stated, The paper I signed yesterday. Are you going to send me back to the last hospital? That place was horrible . Pt was educated he signed a release of information with Dr. Gonzalez to obtain records from [facility]. Pt was given a copy of the release he signed. Despite this, pt continues to be anxious about being transferred. Pt denies SI/HI/VH/AH. 09/14: Keeping to self. active on unit. showered. Pt reports feeling alright today; pt reports he is worried about where I'm going to go . Pt continues concerned he will be transferred to [facility]. Pt denies SI/HI/VH/AH. 09/15:Pt reports feeling alright today; pt continues to report he is worried about where I'm going to go . Responding with brief responses. Guarded. Observed standing in one place for a long period of time. Appears confused. Pt denies SI/HI/VH/AH. T/W spoke to patient's sister, Ros, with patients verbal consent. Ros reports concerns regarding patients ability to make decisions regarding his mental and physical health. She plans on contacting legal advice on obtaining guardianship of patient. 09/16:Patient's presents similar to yesterday's presentation. Responding with brief responses. Guarded. Observed standing in one place for a long period of time, when asked what he is doing, pt stated, I don't know . Pt reports he plans on contacting his sister today and try to convince her for me to stay there . Pt denies SI/HI/VH/AH. Continue current tx plan. 09/17: brief responses. Guarded. 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 Pt denies SI/HI/VH/AH. T/W and Dr. Gonzalez spoke to patient's sister, Ros. Ros stated being [facility] HCP and plans on finding document. She plans on coming to the hospital on Saturday to be present for [facility] intake. 09/21: No changes 09/22:Patient flat apathetic difficult insight and judgment his sister is healthcare proxy if needed patient is accepting medical treatment Referral to [facility] 09/23:Considers starting Haldol Decanoate patient is agreeable superficially difficulty with exec fx was seen [facility] 09/24:Pt seen in f/u mood flat dysphoric difficulty engaging in conversation preoccupied with thought he wont be living with family thing slowed apathetic no clear response with namenda ? some improvement inc lamictal start low dose sertraline inc lamictal ck tsh 09/25:Start Abilify as augmentation with Haldol see if can be more stimulating regarding depressed mood apathetic limited engagement sertraline 50 mg Lamictal 25 b.i.d. referral to [facility] which would have structure unclear if patient can engage with this he remains quite depressed has delusional beliefs regarding housing and that things have been done he has repeatedly tried to reach out to his sister denies active SI needs much help dressing talking with others encouragement to eat severe thought blocking Abilify might be more stimulating than Haldol which can be more dulling 09/26:Abilify started sertraline Lamictal encouraged step-down to [facility] encourage reality orientation denies active SI 09/27: Continue current regimen and plans 09/28: Continue current regimen and plans. 09/29: Referral to [facility] increase Abilify to 5 mg daily eventually try and taper Haldol sertraline 50 mg daily 09/30:Increase Abilify to 10 mg lower Haldol to 7 mg continue sertraline and Lamictal 10/01:Abilify increased to 10 mg continue to taper Haldol sertraline 100 mg Lamictal increased to 75 mg patient apathetic withdrawn difficulty with placement some paranoia continues difficulty with decision making at times. Not physically aggressive internally preoccupied seems somewhat improved with Abilify sertraline Continue discharge planning 10/02:Patient somewhat blunted flat slowed thinking during the day times staring. Change Abilify to 10 mg at bedtime. Scheduled Haldol will lowered to 2.5 mg Continue sertraline 100 mg Namenda 5 b.i.d. 10/03:Haldol discontinued modafinil low-dose monitor for psychosis or agitation continue discharge planning 10/06: May need to firm healthcare proxy calls have been placed to sister to try to help in discharge planning. Referrals made. Patient cooperative with care 10/07:Pharmacy ordering Abilify maintain a increase modafinil 100 mg patient remains flat passive depressed some improvement noted no current paranoia noted continue discharge planning no current safe discharge plan 10/08: Increase Lamictal 100 mg Abilify Maintena 400 mg hold modafinil unclear if was overly stimulating patient continues to present internally preoccupied. 10/09:Healthcare proxy invoked discharge planning continue Lamictal Abilify pending maintain a 10/10:Healthcare proxy invoked new CV signed discharge planning. 10/11 keep same treatment 10/12 keep same treatment 10/13: Continue plan of care Lamictal Abilify discharge planning sertraline 10/14: stable. continue current mgmt. 10/15: stable. continue current mgmt. 10/16: stable presentation. continue current mgmt. 10/17: as for yesterday. 10/18: no changes. 10/19: stabel, safe. no change. 10/20: no change in presentation. calm, cooperative. active on unit, social with select peers, attending groups. Pt reports feeling alright . denies SI/HI/VH/AH. Social work waiting to hear from possible placement location. Continue current tx plan. 10/21: continue current tx plan. awaiting placement. 10/22: calm, cooperative. active on unit, social with select peers, attending groups. Pt reports feeling good ; pt stated, I'm waiting to see where I'm going . denies SI/HI/VH/AH. Showered with encouragement. 10/23: continue current tx plan. 10/24: calm, cooperative. active on unit, social with select peers, attending groups. Pt reports feeling good ; pt stated, I just want a place to live . 10/25- likely at baseline for him- CTP 10/26 CTP likely needs placement 10/27: continue current tx plan. awaiting placement. 10/28: Similar to yesterday. No change in presentation. 10/29: Pt reports feeling good ;pt stated, just waiting for a place to live . denies any issues at this time. 10/30: calm, cooperative. active on unit, social with select peers, attending groups. Pt reports feeling worried about where I am going to live . denies any issues at this time. 10/21: no change in presentation. continue current tx plan. 11/01: continue current management and treatment plan. 11/02: Continue current management and treatment plan. 11/03: Continue current management and treatment plan. 11/04: Active on unit. calm, cooperative. social with select peers, attending groups. denies any issues at this time. He reports sleeping well. Pt reports he would be interested in applying for [facility] services; social work aware. 11/05: Active on unit. calm, cooperative. social with select peers, attending groups. denies any issues at this time. Pt reports feeling okay ; he reports anxiety regarding placement. Continue current tx plan. 11/07/23 DM referral has appropriate concerns re living stuation cont abilify lamictal 11/08/23 Pt cooperative with care d/c planning working with sw cont d/c planning cont lamictal abilify 11/12/23 Patient increasingly despairing aware of no clear discharge plan periods needs cuing for much functioning limited social engaged needs help regarding diabetes and medication compliance reportedly had been rejected by multiple rest homes patient not threatening intermittently hopeless helpless very limited family contact at this time 11/13/23 pt flat depressed hopeless helpless unable to fx without structure 11/15 continue tx. 11/16 continue tx. 11/18/2023 Continue plan of care referral to [facility] TSH low will decrease levothyroxine 11/19/23 Pt flat dysphor ic inc hopeless helpless lamictal 150 hs dec levothyroxine 150 d/c planning cont 11/20/23 lamictal inc d/c planning dm referral Reason for continued inpatient stay Substantial Risk for: inability to function and rapid decompensation Time Spent With Patient Time: Total time managing care of this patient today ____ minutes.
[2023-11-21 12:39] LABS: Glucose, Whole Blood 115 mg/dL (60-115)
[2023-11-21 17:40] LABS: Glucose, Whole Blood 166 mg/dL (60-115)
[2023-11-21] MEDS: Insulin Lispro 100 UNIT/ML 3 ML VIAL SUBCUT ×2 (17:55→21:16)
[2023-11-21] MEDS: metFORMIN HCl ER 500 MG TAB.ER.24H 1000 MG PO (17:58)
[2023-11-21 20:00] VITALS: BP 119/65; PULSE 88; RESP 18; TEMP 36.7; O2SAT 95
[2023-11-21 21:06] LABS: Glucose, Whole Blood 178 mg/dL (60-115)
[2023-11-21] MEDS: lamoTRIgine 100 MG TABLET 150 MG PO (21:14)
[2023-11-21] MEDS: ARIPiprazole 10 MG TABLET PO (21:15)
[2023-11-21] MEDS: Insulin Glargine,Hum.rec.anlog 100 UNIT/ML 10 ML VIAL 20 UNIT SUBCUT (21:16)
[2023-11-22 07:40] VITALS: BP 105/63; PULSE 76; RESP 14; TEMP 36.6; O2SAT 98
[2023-11-22 08:55] LABS: Glucose, Whole Blood 112 mg/dL (60-115)
--- NOTE | 2023-11-22 09:05 | P.PNPSI_ITS ---
Subjective Subjective Date of Service: 11/22/23 Reason For Visit: paranoia cognitive impairment Subjective Notes: Conditional Voluntary Interim History: Reviewed with Dr. Gonzalez. Active on unit, social with peers. Pt continues to report feeling depressed because of the situation . denies SI/HI/VH/AH. Denies any issues at this time. Medication Compliance: Yes Side effects from medications: No Attending Groups: Yes Review of Systems Constitutional: Reports as per HPI Eyes: Reports as per HPI Reports as per HPI Cardiovascular: Reports as per HPI Respiratory: Reports as per HPI Gastrointestinal: Reports as per HPI Genitourinary: Reports as per HPI Musculoskeletal: Reports as per HPI Skin/Breast: Reports as per HPI Reports as per HPI Psychiatric: Reports as per HPI Endocrine: Reports as per HPI Hematologic/Lymphatic: Reports as per HPI Allergic/Immunologic: Reports as per HPI Mental Status Exam Mental Status Exam Patient Appearance: Disheveled Patient Orientation: Person, Place and Situation Level of Consciousness: Awake Patient Behavior: Appropriate and Cooperative Mood Description: Calm, Blunted and Flat Affect Description: Blunted Patient Cognition Impaired: Yes Ability to Follow Directions: Fair Speech Pattern: Clear and Soft-Spoken 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: Retirement Impaired Diagnostics Vital Signs (24Hr): Vital Signs - 24 hr 11/21/23 20:00 11/22/23 07:40 Temperature 98.0 F 97.9 F Pulse Rate 88 76 Respiratory Rate 18 14 Blood Pressure 119/65 105/63 Pulse Oximetry 95 98 Oxygen Delivery Method Room Air Room Air BMI result Body Mass Index 31.9 Labs 09/10/23 20:00 11/17/23 13:23 Labs: Laboratory Results - last 48 hr 11/20/23 11/20/23 11/20/23 12:36 17:42 20:50 POC Glucose 146 H 118 H 160 H 11/21/23 11/21/23 11/21/23 08:25 12:35 17:34 POC Glucose 113 115 166 H 11/21/23 11/22/23 21:01 08:51 POC Glucose 178 H 112 Imaging Radiology Impressions: ITS Impressions Brain MRI 09/19/23 20:33 IMPRESSION: 1. No demonstrated acute intracranial abnormalities. 2. Chronic mild to moderate nonspecific white matter changes, most notably in the deep white matter of the right frontal lobe. Mild to moderate generalized cerebral volume loss. Medications Medications Current Medications Acetaminophen (Acetaminophen 325 Mg Tablet) 650 mg PO Q6H PRN PRN Reason: Headache/Pain Mild Scale (1-3) Last Admin: 10/13/23 09:39 Dose: 650 mg Al Hydroxide/Mg Hydroxide (Magnesium Hydrox/Alum Hydrox 30 Ml Oral.Susp) 30 ml PO Q6H PRN PRN Reason: Heartburn/Nausea Aripiprazole (Aripiprazole 10 Mg Tablet) 10 mg PO BEDTIME [facility] Last Admin: 11/21/23 21:15 Dose: 10 mg Benztropine Mesylate (Benztropine Mesylate 0.5 Mg Tablet) 0.5 mg PO TID PRN PRN Reason: Extrapyramidal Effects Glucose (Glucose Gel 15 Gm Gel..Gram.) 15 gm PO Q15M PRN; Protocol PRN Reason: per Hypoglycemia Standing Ord. Hydroxyzine HCl (Hydroxyzine Hcl 25 Mg Tablet) 25 mg PO Q6H PRN PRN Reason: Anxiety Last Admin: 10/27/23 20:38 Dose: 25 mg Dextrose (D10) 250 mls @ 750 mls/hr IV Q15M PRN; Protocol PRN Reason: per Hypoglycemia Standing Ord. Insulin Glargine (Insulin Glargine,Hum.Rec.Anlog 100 Unit/Ml 10 Ml Vial) 20 unit SUBCUT BEDTIME [facility] Last Admin: 11/21/23 21:16 Dose: 20 unit Insulin Human Lispro (Insulin Lispro 100 Unit/Ml 3 Ml Vial) 0 unit SUBCUT QIDACHS [facility]; Protocol Last Admin: 11/22/23 08:53 Dose: Not Given Lamotrigine (Lamotrigine 100 Mg Tablet) 150 mg PO BEDTIME [facility] Last Admin: 11/21/23 21:14 Dose: 150 mg Levothyroxine Sodium (Levothyroxine Sodium 150 Mcg Tablet) 150 mcg PO DAILY@0600 [facility] Last Admin: 11/21/23 08:26 Dose: 150 mcg Magnesium Hydroxide (Milk Of Magnesia 30 Ml Oral.Susp) 30 ml PO DAILY PRN PRN Reason: Constipation Memantine (Memantine Hcl 5 Mg Tablet) 5 mg PO BID [facility] Last Admin: 11/21/23 21:15 Dose: 5 mg Metformin HCl (Metformin Hcl Er 500 Mg Tab.Er.24h) 1,000 mg PO DAILY@1700 [facility] Last Admin: 11/21/23 17:58 Dose: 1,000 mg Nicotine Polacrilex (Nicotine Polacrilex 2 Mg Gum) 4 mg BUCCAL Q2H PRN PRN Reason: Nicotine Cravings Sertraline HCl (Sertraline Hcl 100 Mg Tablet) 100 mg PO DAILY [facility] Last Admin: 11/21/23 08:26 Dose: 100 mg Simethicone (Simethicone 80 Mg Tab.Chew) 80 mg PO QIDWMHS [facility] Last Admin: 11/21/23 22:40 Dose: 80 mg Trazodone HCl (Trazodone Hcl 50 Mg Tablet) 50 mg PO BEDTIME MRX1 PRN PRN Reason: Insomnia Last Admin: 11/10/23 20:29 Dose: 50 mg Allergies Allergies Allergy/AdvReac Type Severity Reaction Status Date / Time amoxicillin [AMOXICILLIN] Allergy Mild VOMITING/ABD Verified 09/10/23 19:44 PAIN Assessment & Plan Assessment & Plan (1) Schizoaffective disorder: Status: Acute Code(s): F25.9 - Schizoaffective disorder, unspecified (2) Hypothyroidism: Status: Acute Code(s): E03.9 - Hypothyroidism, unspecified (3) Type 2 diabetes mellitus: Status: Acute Code(s): E11.9 - Type 2 diabetes mellitus without complications (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 Plan: CV 15 minute safety checks Continue home medications: Haldol 10mg PO daily Synthroid 200mcg PO daily Obtain labs; A1C/POCs Obtain collateral from sister Obtain records from last hospitalization. MOCA Referral for [facility] services if patient is agreeable. encourage medication compliance;consider VARGAS discharge planning 09/11: Elevated fasting blood sugar elevated hemoglobin A1c 9.2 med consult placed put in point of care needed will start metformin Would benefit from clarity over recent hospitalization what this were done details regarding treatment continue Haldol unclear if patient has Healthcare proxy his [place] was low slowed cognition with poor details in depth at times during blankly regarding making judgments Unclear if any of this relates to past coma or 2 hypothyroidism. He does seem more impaired than when last seen unclear when last imaging was. [facility] regarding diagnostic picture. Patient does remain paranoid blunted suspicious apathetic. He might benefit from longer- term placement if available and appropriate at a later time involved [facility] involvement would be quite helpful 09/12: cont haldol get records ? hcp ? start antidep unclear hx 09/13: Keeping to self. More talkative today. Pt concerned he will be transferred to [facility]. Pt stated, The paper I signed yesterday. Are you going to send me back to the last hospital? That place was horrible . Pt was educated he signed a release of information with Dr. Gonzalez to obtain records from [facility]. Pt was given a copy of the release he signed. Despite this, pt continues to be anxious about being transferred. Pt denies SI/HI/VH/AH. 09/14: Keeping to self. active on unit. showered. Pt reports feeling alright today; pt reports he is worried about where I'm going to go . Pt continues concerned he will be transferred to [facility]. Pt denies SI/HI/VH/AH. 09/15:Pt reports feeling alright today; pt continues to report he is worried about where I'm going to go . Responding with brief responses. Guarded. Observed standing in one place for a long period of time. Appears confused. Pt denies SI/HI/VH/AH. T/W spoke to patient's sister, Ros, with patients verbal consent. Ros reports concerns regarding patients ability to make decisions regarding his mental and physical health. She plans on contacting legal advice on obtaining guardianship of patient. 09/16:Patient's presents similar to yesterday's presentation. Responding with brief responses. Guarded. Observed standing in one place for a long period of time, when asked what he is doing, pt stated, I don't know . Pt reports he plans on contacting his sister today and try to convince her for me to stay there . Pt denies SI/HI/VH/AH. Continue current tx plan. 09/17: brief responses. Guarded. 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 Pt denies SI/HI/VH/AH. T/W and Dr. Gonzalez spoke to patient's sister, Ros. Ros stated being [facility] HCP and plans on finding document. She plans on coming to the hospital on Saturday to be present for [facility] intake. 09/21: No changes 09/22:Patient flat apathetic difficult insight and judgment his sister is healthcare proxy if needed patient is accepting medical treatment Referral to [facility] 09/23:Considers starting Haldol Decanoate patient is agreeable superficially difficulty with exec fx was seen [facility] 09/24:Pt seen in f/u mood flat dysphoric difficulty engaging in conversation preoccupied with thought he wont be living with family thing slowed apathetic no clear response with namenda ? some improvement inc lamictal start low dose sertraline inc lamictal ck tsh 09/25:Start Abilify as augmentation with Haldol see if can be more stimulating regarding depressed mood apathetic limited engagement sertraline 50 mg Lamictal 25 b.i.d. referral to [facility] which would have structure unclear if patient can engage with this he remains quite depressed has delusional beliefs regarding housing and that things have been done he has repeatedly tried to reach out to his sister denies active SI needs much help dressing talking with others encouragement to eat severe thought blocking Abilify might be more stimulating than Haldol which can be more dulling 09/26:Abilify started sertraline Lamictal encouraged step-down to [facility] encourage reality orientation denies active SI 09/27: Continue current regimen and plans 09/28: Continue current regimen and plans. 09/29: Referral to [facility] increase Abilify to 5 mg daily eventually try and taper Haldol sertraline 50 mg daily 09/30:Increase Abilify to 10 mg lower Haldol to 7 mg continue sertraline and Lamictal 10/01:Abilify increased to 10 mg continue to taper Haldol sertraline 100 mg Lamictal increased to 75 mg patient apathetic withdrawn difficulty with placement some paranoia continues difficulty with decision making at times. Not physically aggressive internally preoccupied seems somewhat improved with Abilify sertraline Continue discharge planning 10/02:Patient somewhat blunted flat slowed thinking during the day times staring. Change Abilify to 10 mg at bedtime. Scheduled Haldol will lowered to 2.5 mg Continue sertraline 100 mg Namenda 5 b.i.d. 10/03:Haldol discontinued modafinil low-dose monitor for psychosis or agitation continue discharge planning 10/06: May need to firm healthcare proxy calls have been placed to sister to try to help in discharge planning. Referrals made. Patient cooperative with care 10/07:Pharmacy ordering Abilify maintain a increase modafinil 100 mg patient remains flat passive depressed some improvement noted no current paranoia noted continue discharge planning no current safe discharge plan 10/08: Increase Lamictal 100 mg Abilify Maintena 400 mg hold modafinil unclear if was overly stimulating patient continues to present internally preoccupied. 10/09:Healthcare proxy invoked discharge planning continue Lamictal Abilify pending maintain a 10/10:Healthcare proxy invoked new CV signed discharge planning. 10/11 keep same treatment 10/12 keep same treatment 10/13: Continue plan of care Lamictal Abilify discharge planning sertraline 10/14: stable. continue current mgmt. 10/15: stable. continue current mgmt. 10/16: stable presentation. continue current mgmt. 10/17: as for yesterday. 10/18: no changes. 10/19: stabel, safe. no change. 10/20: no change in presentation. calm, cooperative. active on unit, social with select peers, attending groups. Pt reports feeling alright . denies SI/HI/VH/AH. Social work waiting to hear from possible placement location. Continue current tx plan. 10/21: continue current tx plan. awaiting placement. 10/22: calm, cooperative. active on unit, social with select peers, attending groups. Pt reports feeling good ; pt stated, I'm waiting to see where I'm going . denies SI/HI/VH/AH. Showered with encouragement. 10/23: continue current tx plan. 10/24: calm, cooperative. active on unit, social with select peers, attending groups. Pt reports feeling good ; pt stated, I just want a place to live . 10/25- likely at baseline for him- CTP 10/26 CTP likely needs placement 10/27: continue current tx plan. awaiting placement. 10/28: Similar to yesterday. No change in presentation. 10/29: Pt reports feeling good ;pt stated, just waiting for a place to live . denies any issues at this time. 10/30: calm, cooperative. active on unit, social with select peers, attending groups. Pt reports feeling worried about where I am going to live . denies any issues at this time. 10/21: no change in presentation. continue current tx plan. 11/01: continue current management and treatment plan. 11/02: Continue current management and treatment plan. 11/03: Continue current management and treatment plan. 11/04: Active on unit. calm, cooperative. social with select peers, attending groups. denies any issues at this time. He reports sleeping well. Pt reports he would be interested in applying for [facility] services; social work aware. 11/05: Active on unit. calm, cooperative. social with select peers, attending groups. denies any issues at this time. Pt reports feeling okay ; he reports anxiety regarding placement. Continue current tx plan. 11/06: DM referral has appropriate concerns re living stuation cont abilify lamictal 11/07: Pt cooperative with care d/c planning working with cont d/c planning cont lamictal abilify 11/11: Patient increasingly despairing aware of no clear discharge plan periods needs cuing for much functioning limited social engaged needs help regarding diabetes and medication compliance reportedly had been rejected by multiple rest homes patient not threatening intermittently hopeless helpless very limited family contact at this time 11/12: pt flat depressed hopeless helpless unable to fx without structure 11/15 continue tx. 11/16 continue tx. 11/17: Continue plan of care referral to [facility] TSH low will decrease levothyroxine 11/18: Pt flat dysphor ic inc hopeless helpless lamictal 150 hs dec levothyroxine 150 d/c planning cont 11/20: Keeping to self. Laying in bed most of morning. Pt reports feeling depressed because of the situation . Continues to deny SI/HI/VH/AH. Pt is hoping for housing soon. 11/21: Active on unit, social with peers. Pt continues to report feeling depressed because of the situation . denies SI/HI/VH/AH. Denies any issues at this time. Reason for continued inpatient stay Substantial Risk for: other (waiting for placement.) Time Spent With Patient Time: Total time managing care of this patient today _20___ minutes.
[2023-11-22] MEDS: Sertraline HCL 100 MG TABLET PO (09:56)
[2023-11-22] MEDS: Simethicone 80 MG TAB.CHEW PO ×2 (09:56→13:05)
[2023-11-22] MEDS: Memantine HCl 5 MG TABLET PO ×2 (09:56→21:00)
[2023-11-22] MEDS: Levothyroxine Sodium 150 MCG TABLET PO (09:56)
[2023-11-22 12:53] LABS: Glucose, Whole Blood 199 mg/dL (60-115)
[2023-11-22] MEDS: Insulin Lispro 100 UNIT/ML 3 ML VIAL SUBCUT ×2 (13:04→21:01)
[2023-11-22 17:43] LABS: Glucose, Whole Blood 113 mg/dL (60-115)
[2023-11-22] MEDS: metFORMIN HCl ER 500 MG TAB.ER.24H 1000 MG PO (18:07)
[2023-11-22 19:40] VITALS: BP 142/80; PULSE 92; RESP 16; TEMP 36.7; O2SAT 96
[2023-11-22 20:19] LABS: Glucose, Whole Blood 237 mg/dL (60-115)
[2023-11-22] MEDS: lamoTRIgine 100 MG TABLET 150 MG PO (21:00)
[2023-11-22] MEDS: ARIPiprazole 10 MG TABLET PO (21:00)
[2023-11-22] MEDS: Insulin Glargine,Hum.rec.anlog 100 UNIT/ML 10 ML VIAL 20 UNIT SUBCUT (21:01)
[2023-11-23 08:23] LABS: Glucose, Whole Blood 100 mg/dL (60-115)
[2023-11-23 08:33] VITALS: BP 116/67; PULSE 86; RESP 18; TEMP 36.8; O2SAT 95
[2023-11-23] MEDS: Levothyroxine Sodium 150 MCG TABLET PO (08:33)
[2023-11-23] MEDS: Memantine HCl 5 MG TABLET PO ×2 (08:34→21:21)
[2023-11-23] MEDS: Sertraline HCL 100 MG TABLET PO (08:34)
[2023-11-23 09:06] LABS: Creatinine Clr Calc Pharmacy 104.8; Estimated Glomerular Filt Rate > 60
--- NOTE | 2023-11-23 10:10 | P.PNPSI_ITS ---
Subjective Subjective Date of Service: 11/23/23 Reason For Visit: paranoia cognitive impairment Subjective Notes: Conditional Voluntary Interim History: Patient was seen and discussed in rounds today. Records and plans were reviewed. He continues to be doing okay on the unit with social interactions, attending groups. Continues to endorse anxiety and depression and is awaiting placement. No complaints or side effects. No changes were made today Review of Systems Review of Systems Yes unobtainable due to endotracheal tube Mental Status Exam Mental Status Exam Patient Appearance: Disheveled Patient Orientation: Person, Place and Situation Level of Consciousness: Awake Patient Behavior: Appropriate and Cooperative Mood Description: Calm, Blunted and Flat Affect Description: Blunted Patient Cognition Impaired: Yes Ability to Follow Directions: Fair Speech Pattern: Clear and Soft-Spoken 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: Mosaic Tiler Impaired Diagnostics Vital Signs (24Hr): Vital Signs - 24 hr 11/22/23 19:40 11/23/23 08:33 Temperature 98.1 F 98.2 F Pulse Rate 92 86 Respiratory Rate 16 18 Blood Pressure 142/80 H 116/67 Pulse Oximetry 96 95 Oxygen Delivery Method Room Air Room Air BMI result Body Mass Index 31.9 Labs 09/10/23 20:00 11/23/23 08:28 Labs: Laboratory Results - last 48 hr 11/21/23 11/21/23 11/21/23 12:35 17:34 21:01 Creatinine Estim Creat Clear Calc Estimated GFR POC Glucose 115 166 H 178 H 11/22/23 11/22/23 11/22/23 08:51 12:48 17:38 Creatinine Estim Creat Clear Calc Estimated GFR POC Glucose 112 199 H 113 11/22/23 11/23/23 11/23/23 20:08 08:16 08:28 Creatinine 0.88 Estim Creat Clear Calc 104.8 Estimated GFR > 60 POC Glucose 237 H 100 Imaging Radiology Impressions: ITS Impressions Brain MRI 09/19/23 20:33 IMPRESSION: 1. No demonstrated acute intracranial abnormalities. 2. Chronic mild to moderate nonspecific white matter changes, most notably in the deep white matter of the right frontal lobe. Mild to moderate generalized cerebral volume loss. Medications Medications Current Medications Acetaminophen (Acetaminophen 325 Mg Tablet) 650 mg PO Q6H PRN PRN Reason: Headache/Pain Mild Scale (1-3) Last Admin: 10/13/23 09:39 Dose: 650 mg Al Hydroxide/Mg Hydroxide (Magnesium Hydrox/Alum Hydrox 30 Ml Oral.Susp) 30 ml PO Q6H PRN PRN Reason: Heartburn/Nausea Aripiprazole (Aripiprazole 10 Mg Tablet) 10 mg PO BEDTIME [facility] Last Admin: 11/22/23 21:00 Dose: 10 mg Benztropine Mesylate (Benztropine Mesylate 0.5 Mg Tablet) 0.5 mg PO TID PRN PRN Reason: Extrapyramidal Effects Glucose (Glucose Gel 15 Gm Gel..Gram.) 15 gm PO Q15M PRN; Protocol PRN Reason: per Hypoglycemia Standing Ord. Hydroxyzine HCl (Hydroxyzine Hcl 25 Mg Tablet) 25 mg PO Q6H PRN PRN Reason: Anxiety Last Admin: 10/27/23 20:38 Dose: 25 mg Dextrose (D10) 250 mls @ 750 mls/hr IV Q15M PRN; Protocol PRN Reason: per Hypoglycemia Standing Ord. Insulin Glargine (Insulin Glargine,Hum.Rec.Anlog 100 Unit/Ml 10 Ml Vial) 20 unit SUBCUT BEDTIME [facility] Last Admin: 11/22/23 21:01 Dose: 20 unit Insulin Human Lispro (Insulin Lispro 100 Unit/Ml 3 Ml Vial) 0 unit SUBCUT QIDACHS [facility]; Protocol Last Admin: 11/23/23 08:56 Dose: Not Given Lamotrigine (Lamotrigine 100 Mg Tablet) 150 mg PO BEDTIME [facility] Last Admin: 11/22/23 21:00 Dose: 150 mg Levothyroxine Sodium (Levothyroxine Sodium 150 Mcg Tablet) 150 mcg PO DAILY@0600 [facility] Last Admin: 11/23/23 08:33 Dose: 150 mcg Magnesium Hydroxide (Milk Of Magnesia 30 Ml Oral.Susp) 30 ml PO DAILY PRN PRN Reason: Constipation Memantine (Memantine Hcl 5 Mg Tablet) 5 mg PO BID [facility] Last Admin: 11/23/23 08:34 Dose: 5 mg Metformin HCl (Metformin Hcl Er 500 Mg Tab.Er.24h) 1,000 mg PO DAILY@1700 [facility] Last Admin: 11/22/23 18:07 Dose: 1,000 mg Nicotine Polacrilex (Nicotine Polacrilex 2 Mg Gum) 4 mg BUCCAL Q2H PRN PRN Reason: Nicotine Cravings Sertraline HCl (Sertraline Hcl 100 Mg Tablet) 100 mg PO DAILY [facility] Last Admin: 11/23/23 08:34 Dose: 100 mg Simethicone (Simethicone 80 Mg Tab.Chew) 80 mg PO QIDWMHS PRN PRN Reason: Gas Trazodone HCl (Trazodone Hcl 50 Mg Tablet) 50 mg PO BEDTIME MRX1 PRN PRN Reason: Insomnia Last Admin: 11/10/23 20:29 Dose: 50 mg Allergies Allergies Allergy/AdvReac Type Severity Reaction Status Date / Time amoxicillin [AMOXICILLIN] Allergy Mild VOMITING/ABD Verified 09/10/23 19:44 PAIN Assessment & Plan Assessment & Plan (1) Schizoaffective disorder: Status: Acute Code(s): F25.9 - Schizoaffective disorder, unspecified (2) Hypothyroidism: Status: Acute Code(s): E03.9 - Hypothyroidism, unspecified (3) Type 2 diabetes mellitus: Status: Acute Code(s): E11.9 - Type 2 diabetes mellitus without complications (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 Plan: CV 15 minute safety checks Continue home medications: Haldol 10mg PO daily Synthroid 200mcg PO daily Obtain labs; A1C/POCs Obtain collateral from sister Obtain records from last hospitalization. MOCA Referral for [facility] services if patient is agreeable. encourage medication compliance;consider VARGAS discharge planning 09/11: Elevated fasting blood sugar elevated hemoglobin A1c 9.2 med consult placed put in point of care needed will start metformin Would benefit from clarity over recent hospitalization what this were done details regarding treatment continue Haldol unclear if patient has Healthcare proxy his [place] was low slowed cognition with poor details in depth at times during blankly regarding making judgments Unclear if any of this relates to past coma or 2 hypothyroidism. He does seem more impaired than when last seen unclear when last imaging was. Continue Haldol sitter neuro indira involvement regarding diagnostic picture. Patient does remain paranoid blunted suspicious apathetic. He might benefit from longer- term placement if available and appropriate at a later time involved H involvement would be quite helpful 09/12: cont haldol get records ? hcp ? start antidep unclear hx 09/13: Keeping to self. More talkative today. Pt concerned he will be transferred to [facility]. Pt stated, The paper I signed yesterday. Are you going to send me back to the last hospital? That place was horrible . Pt was educated he signed a release of information with Dr. Gonzalez to obtain records from [facility]. Pt was given a copy of the release he signed. Despite this, pt continues to be anxious about being transferred. Pt denies SI/HI/VH/AH. 09/14: Keeping to self. active on unit. showered. Pt reports feeling alright today; pt reports he is worried about where I'm going to go . Pt continues concerned he will be transferred to [facility]. Pt denies SI/HI/VH/AH. 09/15:Pt reports feeling alright today; pt continues to report he is worried about where I'm going to go . Responding with brief responses. Guarded. Observed standing in one place for a long period of time. Appears confused. Pt denies SI/HI/VH/AH. T/W spoke to patient's sister, Ros, with patients verbal consent. Ros reports concerns regarding patients ability to make decisions regarding his mental and physical health. She plans on contacting legal advice on obtaining guardianship of patient. 09/16:Patient's presents similar to yesterday's presentation. Responding with brief responses. Guarded. Observed standing in one place for a long period of time, when asked what he is doing, pt stated, I don't know . Pt reports he plans on contacting his sister today and try to convince her for me to stay there . Pt denies SI/HI/VH/AH. Continue current tx plan. 09/17: brief responses. Guarded. 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 Pt denies SI/HI/VH/AH. T/W and Dr. Gonzalez spoke to patient's sister, Ros. Ros stated being [facility] HCP and plans on finding document. She plans on coming to the hospital on Saturday to be present for [facility] intake. 09/21: No changes 09/22:Patient flat apathetic difficult insight and judgment his sister is healthcare proxy if needed patient is accepting medical treatment Referral to [facility] 09/23:Considers starting Haldol Decanoate patient is agreeable superficially difficulty with exec fx was seen [facility] 09/24:Pt seen in f/u mood flat dysphoric difficulty engaging in conversation preoccupied with thought he wont be living with family thing slowed apathetic no clear response with namenda ? some improvement inc lamictal start low dose sertraline inc lamictal ck tsh 09/25:Start Abilify as augmentation with Haldol see if can be more stimulating regarding depressed mood apathetic limited engagement sertraline 50 mg Lamictal 25 b.i.d. referral to [facility] which would have structure unclear if patient can engage with this he remains quite depressed has delusional beliefs regarding housing and that things have been done he has repeatedly tried to reach out to his sister denies active SI needs much help dressing talking with others encouragement to eat severe thought blocking Abilify might be more stimulating than Haldol which can be more dulling 09/26:Abilify started sertraline Lamictal encouraged step-down to [facility] encourage reality orientation denies active SI 09/27: Continue current regimen and plans 09/28: Continue current regimen and plans. 09/29: Referral to [facility] increase Abilify to 5 mg daily eventually try and taper Haldol sertraline 50 mg daily 09/30:Increase Abilify to 10 mg lower Haldol to 7 mg continue sertraline and Lamictal 10/01:Abilify increased to 10 mg continue to taper Haldol sertraline 100 mg Lamictal increased to 75 mg patient apathetic withdrawn difficulty with placement some paranoia continues difficulty with decision making at times. Not physically aggressive internally preoccupied seems somewhat improved with Abilify sertraline Continue discharge planning 10/02:Patient somewhat blunted flat slowed thinking during the day times staring. Change Abilify to 10 mg at bedtime. Scheduled Haldol will lowered to 2.5 mg Continue sertraline 100 mg Namenda 5 b.i.d. 10/03:Haldol discontinued modafinil low-dose monitor for psychosis or agitation continue discharge planning 10/06: May need to firm healthcare proxy calls have been placed to sister to try to help in discharge planning. Referrals made. Patient cooperative with care 10/07:Pharmacy ordering Abilify maintain a increase modafinil 100 mg patient remains flat passive depressed some improvement noted no current paranoia noted continue discharge planning no current safe discharge plan 10/08: Increase Lamictal 100 mg Abilify Maintena 400 mg hold modafinil unclear if was overly stimulating patient continues to present internally preoccupied. 10/09:Healthcare proxy invoked discharge planning continue Lamictal Abilify pending maintain a 10/10:Healthcare proxy invoked new CV signed discharge planning. 10/11 keep same treatment 10/12 keep same treatment 10/13: Continue plan of care Lamictal Abilify discharge planning sertraline 10/14: stable. continue current mgmt. 10/15: stable. continue current mgmt. 10/16: stable presentation. continue current mgmt. 10/17: as for yesterday. 10/18: no changes. 10/19: stabel, safe. no change. 10/20: no change in presentation. calm, cooperative. active on unit, social with select peers, attending groups. Pt reports feeling alright . denies SI/HI/VH/AH. Social work waiting to hear from possible placement location. Continue current tx plan. 10/21: continue current tx plan. awaiting placement. 10/22: calm, cooperative. active on unit, social with select peers, attending groups. Pt reports feeling good ; pt stated, I'm waiting to see where I'm going . denies SI/HI/VH/AH. Showered with encouragement. 10/23: continue current tx plan. 10/24: calm, cooperative. active on unit, social with select peers, attending groups. Pt reports feeling good ; pt stated, I just want a place to live . 10/25- likely at baseline for him- CTP 10/26 CTP likely needs placement 10/27: continue current tx plan. awaiting placement. 10/28: Similar to yesterday. No change in presentation. 10/29: Pt reports feeling good ;pt stated, just waiting for a place to live . denies any issues at this time. 10/30: calm, cooperative. active on unit, social with select peers, attending groups. Pt reports feeling worried about where I am going to live . denies any issues at this time. 10/21: no change in presentation. continue current tx plan. 11/01: continue current management and treatment plan. 11/02: Continue current management and treatment plan. 11/03: Continue current management and treatment plan. 11/04: Active on unit. calm, cooperative. social with select peers, attending groups. denies any issues at this time. He reports sleeping well. Pt reports he would be interested in applying for [facility] services; social work aware. 11/05: Active on unit. calm, cooperative. social with select peers, attending groups. denies any issues at this time. Pt reports feeling okay ; he reports anxiety regarding placement. Continue current tx plan. 11/06: [facility] referral has appropriate concerns re living stuation cont abilify lamictal 11/07: Pt cooperative with care d/c planning working with cont d/c planning cont lamictal abilify 11/11: Patient increasingly despairing aware of no clear discharge plan periods needs cuing for much functioning limited social engaged needs help regarding diabetes and medication compliance reportedly had been rejected by multiple rest homes patient not threatening intermittently hopeless helpless very limited family contact at this time 11/12: pt flat depressed hopeless helpless unable to fx without structure 11/15 continue tx. 11/16 continue tx. 11/17: Continue plan of care referral to [facility] TSH low will decrease levothyroxine 11/18: Pt flat dysphor ic inc hopeless helpless lamictal 150 hs dec levothyroxine 150 d/c planning cont 11/20: Keeping to self. Laying in bed most of morning. Pt reports feeling depressed because of the situation . Continues to deny SI/HI/VH/AH. Pt is hoping for housing soon. 11/21: Active on unit, social with peers. Pt continues to report feeling depressed because of the situation . denies SI/HI/VH/AH. Denies any issues at this time. 11/22: Continue current regimen and plans Reason for continued inpatient stay Substantial Risk for: med/psych decompensation Time Spent With Patient Time: Total time managing care of this patient today ____ minutes.
[2023-11-23 12:50] LABS: Glucose, Whole Blood 190 mg/dL (60-115)
[2023-11-23] MEDS: Insulin Lispro 100 UNIT/ML 3 ML VIAL SUBCUT ×2 (12:56→21:27)
[2023-11-23 17:49] LABS: Glucose, Whole Blood 138 mg/dL (60-115)
[2023-11-23] MEDS: metFORMIN HCl ER 500 MG TAB.ER.24H 1000 MG PO (17:55)
[2023-11-23 20:00] VITALS: BP 131/70; PULSE 87; RESP 16; TEMP 36.8; O2SAT 98
[2023-11-23 21:14] LABS: Glucose, Whole Blood 186 mg/dL (60-115)
[2023-11-23] MEDS: lamoTRIgine 100 MG TABLET 150 MG PO (21:21)
[2023-11-23] MEDS: ARIPiprazole 10 MG TABLET PO (21:22)
[2023-11-23] MEDS: Insulin Glargine,Hum.rec.anlog 100 UNIT/ML 10 ML VIAL 20 UNIT SUBCUT (21:26)
[2023-11-24 08:45] LABS: Glucose, Whole Blood 100 mg/dL (60-115)
[2023-11-24] MEDS: Memantine HCl 5 MG TABLET PO ×2 (08:47→21:10)
[2023-11-24] MEDS: Sertraline HCL 100 MG TABLET PO (08:47)
[2023-11-24] MEDS: Levothyroxine Sodium 150 MCG TABLET PO (08:47)
[2023-11-24 08:49] VITALS: BP 127/59; PULSE 76; RESP 18; TEMP 36.7; O2SAT 98
--- NOTE | 2023-11-24 10:08 | HO.PSYCHPN ---
Subjective Subjective Date of Service: 11/24/23 Reason For Visit: paranoia cognitive impairment Subjective Notes: Conditional Voluntary Interim History: Patient was seen and discussed in rounds today. Records and plans were reviewed. He has been stable and is doing better. Some interactions with others and is more visible. Moderate anxiety and depression persisting. Eating and sleeping, 7 hours. No complaints or side effects. No SI. 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 Vital Signs (24Hr): Vital Signs - 24 hr 11/23/23 20:00 11/24/23 08:49 Temperature 98.2 F 98.0 F Pulse Rate 87 76 Respiratory Rate 16 18 Blood Pressure 131/70 127/59 L Pulse Oximetry 98 98 Oxygen Delivery Method Room Air Room Air BMI result Body Mass Index 31.9 Labs 09/10/23 20:00 11/23/23 08:28 Labs: Laboratory Results - last 48 hr 11/22/23 11/22/23 11/22/23 12:48 17:38 20:08 Creatinine Estim Creat Clear Calc Estimated GFR POC Glucose 199 H 113 237 H 11/23/23 11/23/23 11/23/23 08:16 08:28 12:46 Creatinine 0.88 Estim Creat Clear Calc 104.8 Estimated GFR > 60 POC Glucose 100 190 H 11/23/23 11/23/23 11/24/23 17:34 21:09 08:31 Creatinine Estim Creat Clear Calc Estimated GFR POC Glucose 138 H 186 H 100 Imaging Radiology Impressions: ITS Impressions Brain MRI 09/19/23 20:33 IMPRESSION: 1. No demonstrated acute intracranial abnormalities. 2. Chronic mild to moderate nonspecific white matter changes, most notably in the deep white matter of the right frontal lobe. Mild to moderate generalized cerebral volume loss. Medications Medications Current Medications Acetaminophen (Acetaminophen 325 Mg Tablet) 650 mg PO Q6H PRN PRN Reason: Headache/Pain Mild Scale (1-3) Last Admin: 10/13/23 09:39 Dose: 650 mg Al Hydroxide/Mg Hydroxide (Magnesium Hydrox/Alum Hydrox 30 Ml Oral.Susp) 30 ml PO Q6H PRN PRN Reason: Heartburn/Nausea Aripiprazole (Aripiprazole 10 Mg Tablet) 10 mg PO BEDTIME [facility] Last Admin: 11/23/23 21:22 Dose: 10 mg Benztropine Mesylate (Benztropine Mesylate 0.5 Mg Tablet) 0.5 mg PO TID PRN PRN Reason: Extrapyramidal Effects Glucose (Glucose Gel 15 Gm Gel..Gram.) 15 gm PO Q15M PRN; Protocol PRN Reason: per Hypoglycemia Standing Ord. Hydroxyzine HCl (Hydroxyzine Hcl 25 Mg Tablet) 25 mg PO Q6H PRN PRN Reason: Anxiety Last Admin: 10/27/23 20:38 Dose: 25 mg Dextrose (D10) 250 mls @ 750 mls/hr IV Q15M PRN; Protocol PRN Reason: per Hypoglycemia Standing Ord. Insulin Glargine (Insulin Glargine,Hum.Rec.Anlog 100 Unit/Ml 10 Ml Vial) 20 unit SUBCUT BEDTIME [facility] Last Admin: 11/23/23 21:26 Dose: 20 unit Insulin Human Lispro (Insulin Lispro 100 Unit/Ml 3 Ml Vial) 0 unit SUBCUT QIDACHS [facility]; Protocol Last Admin: 11/24/23 08:49 Dose: Not Given Lamotrigine (Lamotrigine 100 Mg Tablet) 150 mg PO BEDTIME [facility] Last Admin: 11/23/23 21:21 Dose: 150 mg Levothyroxine Sodium (Levothyroxine Sodium 150 Mcg Tablet) 150 mcg PO DAILY@0600 [facility] Last Admin: 11/24/23 08:47 Dose: 150 mcg Magnesium Hydroxide (Milk Of Magnesia 30 Ml Oral.Susp) 30 ml PO DAILY PRN PRN Reason: Constipation Memantine (Memantine Hcl 5 Mg Tablet) 5 mg PO BID [facility] Last Admin: 11/24/23 08:47 Dose: 5 mg Metformin HCl (Metformin Hcl Er 500 Mg Tab.Er.24h) 1,000 mg PO DAILY@1700 [facility] Last Admin: 11/23/23 17:55 Dose: 1,000 mg Nicotine Polacrilex (Nicotine Polacrilex 2 Mg Gum) 4 mg BUCCAL Q2H PRN PRN Reason: Nicotine Cravings Sertraline HCl (Sertraline Hcl 100 Mg Tablet) 100 mg PO DAILY [facility] Last Admin: 11/24/23 08:47 Dose: 100 mg Simethicone (Simethicone 80 Mg Tab.Chew) 80 mg PO QIDWMHS PRN PRN Reason: Gas Trazodone HCl (Trazodone Hcl 50 Mg Tablet) 50 mg PO BEDTIME MRX1 PRN PRN Reason: Insomnia Last Admin: 11/10/23 20:29 Dose: 50 mg Allergies Allergies Allergy/AdvReac Type Severity Reaction Status Date / Time amoxicillin [AMOXICILLIN] Allergy Mild VOMITING/ABD Verified 09/10/23 19:44 PAIN Assessment & Plan Assessment & Plan (1) Schizoaffective disorder: Status: Acute Code(s): F25.9 - Schizoaffective disorder, unspecified (2) Hypothyroidism: Status: Acute Code(s): E03.9 - Hypothyroidism, unspecified (3) Type 2 diabetes mellitus: Status: Acute Code(s): E11.9 - Type 2 diabetes mellitus without complications (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 Plan: CV 15 minute safety checks Continue home medications: Haldol 10mg PO daily Synthroid 200mcg PO daily Obtain labs; A1C/POCs Obtain collateral from sister Obtain records from last hospitalization. MOCA Referral for [facility] services if patient is agreeable. encourage medication compliance;consider VARGAS discharge planning 09/11: Elevated fasting blood sugar elevated hemoglobin A1c 9.2 med consult placed put in point of care needed will start metformin Would benefit from clarity over recent hospitalization what this were done details regarding treatment continue Haldol unclear if patient has Healthcare proxy his [place] was low slowed cognition with poor details in depth at times during blankly regarding making judgments Unclear if any of this relates to past coma or 2 hypothyroidism. He does seem more impaired than when last seen unclear when last imaging was. Continue Haldol [facility]ira involvement regarding diagnostic picture. Patient does remain paranoid blunted suspicious apathetic. He might benefit from longer-term placement if available and appropriate at a later time involved H involvement would be quite helpful 09/12: cont haldol get records ? hcp ? start antidep unclear hx 09/13: Keeping to self. More talkative today. Pt concerned he will be transferred to [facility]. Pt stated, The paper I signed yesterday. Are you going to send me back to the last hospital? That place was horrible . Pt was educated he signed a release of information with Dr. Gonzalez to obtain records from [facility]. Pt was given a copy of the release he signed. Despite this, pt continues to be anxious about being transferred. Pt denies SI/HI/VH/AH. 09/14: Keeping to self. active on unit. showered. Pt reports feeling alright today; pt reports he is worried about where I'm going to go . Pt continues concerned he will be transferred to [facility]. Pt denies SI/HI/VH/AH. 09/15:Pt reports feeling alright today; pt continues to report he is worried about where I'm going to go . Responding with brief responses. Guarded. Observed standing in one place for a long period of time. Appears confused. Pt denies SI/HI/VH/AH. T/W spoke to patient's sister, Ros, with patients verbal consent. Ros reports concerns regarding patients ability to make decisions regarding his mental and physical health. She plans on contacting legal advice on obtaining guardianship of patient. 09/16:Patient's presents similar to yesterday's presentation. Responding with brief responses. Guarded. Observed standing in one place for a long period of time, when asked what he is doing, pt stated, I don't know . Pt reports he plans on contacting his sister today and try to convince her for me to stay there . Pt denies SI/HI/VH/AH. Continue current tx plan. 09/17: brief responses. Guarded. 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 Pt denies SI/HI/VH/AH. T/W and Dr. Gonzalez spoke to patient's sister, Ros. Ros stated being [facility] HCP and plans on finding document. She plans on coming to the hospital on Saturday to be present for [facility] intake. 09/21: No changes 09/22:Patient flat apathetic difficult insight and judgment his sister is healthcare proxy if needed patient is accepting medical treatment Referral to [facility] 09/23:Considers starting Haldol Decanoate patient is agreeable superficially difficulty with exec fx was seen [facility] 09/24:Pt seen in f/u mood flat dysphoric difficulty engaging in conversation preoccupied with thought he wont be living with family thing slowed apathetic no clear response with namenda ? some improvement inc lamictal start low dose sertraline inc lamictal ck tsh 09/25:Start Abilify as augmentation with Haldol see if can be more stimulating regarding depressed mood apathetic limited engagement sertraline 50 mg Lamictal 25 b.i.d. referral to [facility] which would have structure unclear if patient can engage with this he remains quite depressed has delusional beliefs regarding housing and that things have been done he has repeatedly tried to reach out to his sister denies active SI needs much help dressing talking with others encouragement to eat severe thought blocking Abilify might be more stimulating than Haldol which can be more dulling 09/26:Abilify started sertraline Lamictal encouraged step-down to [facility] encourage reality orientation denies active SI 09/27: Continue current regimen and plans 09/28: Continue current regimen and plans. 09/29: Referral to [facility] increase Abilify to 5 mg daily eventually try and taper Haldol sertraline 50 mg daily 09/30:Increase Abilify to 10 mg lower Haldol to 7 mg continue sertraline and Lamictal 10/01:Abilify increased to 10 mg continue to taper Haldol sertraline 100 mg Lamictal increased to 75 mg patient apathetic withdrawn difficulty with placement some paranoia continues difficulty with decision making at times. Not physically aggressive internally preoccupied seems somewhat improved with Abilify sertraline Continue discharge planning 10/02:Patient somewhat blunted flat slowed thinking during the day times staring. Change Abilify to 10 mg at bedtime. Scheduled Haldol will lowered to 2.5 mg Continue sertraline 100 mg Namenda 5 b.i.d. 10/03:Haldol discontinued modafinil low-dose monitor for psychosis or agitation continue discharge planning 10/06: May need to firm healthcare proxy calls have been placed to sister to try to help in discharge planning. Referrals made. Patient cooperative with care 10/07:Pharmacy ordering Abilify maintain a increase modafinil 100 mg patient remains flat passive depressed some improvement noted no current paranoia noted continue discharge planning no current safe discharge plan 10/08: Increase Lamictal 100 mg Abilify Maintena 400 mg hold modafinil unclear if was overly stimulating patient continues to present internally preoccupied. 10/09:Healthcare proxy invoked discharge planning continue Lamictal Abilify pending maintain a 10/10:Healthcare proxy invoked new CV signed discharge planning. 10/11 keep same treatment 10/12 keep same treatment 10/13: Continue plan of care Lamictal Abilify discharge planning sertraline 10/14: stable. continue current mgmt. 10/15: stable. continue current mgmt. 10/16: stable presentation. continue current mgmt. 10/17: as for yesterday. 10/18: no changes. 10/19: stabel, safe. no change. 10/20: no change in presentation. calm, cooperative. active on unit, social with select peers, attending groups. Pt reports feeling alright . denies SI/HI/VH/AH. Social work waiting to hear from possible placement location. Continue current tx plan. 10/21: continue current tx plan. awaiting placement. 10/22: calm, cooperative. active on unit, social with select peers, attending groups. Pt reports feeling good ; pt stated, I'm waiting to see where I'm going . denies SI/HI/VH/AH. Showered with encouragement. 10/23: continue current tx plan. 10/24: calm, cooperative. active on unit, social with select peers, attending groups. Pt reports feeling good ; pt stated, I just want a place to live . 10/25- likely at baseline for him- CTP 10/26 CTP likely needs placement 10/27: continue current tx plan. awaiting placement. 10/28: Similar to yesterday. No change in presentation. 10/29: Pt reports feeling good ;pt stated, just waiting for a place to live . denies any issues at this time. 10/30: calm, cooperative. active on unit, social with select peers, attending groups. Pt reports feeling worried about where I am going to live . denies any issues at this time. 10/21: no change in presentation. continue current tx plan. 11/01: continue current management and treatment plan. 11/02: Continue current management and treatment plan. 11/03: Continue current management and treatment plan. 11/04: Active on unit. calm, cooperative. social with select peers, attending groups. denies any issues at this time. He reports sleeping well. Pt reports he would be interested in applying for [facility] services; social work aware. 11/05: Active on unit. calm, cooperative. social with select peers, attending groups. denies any issues at this time. Pt reports feeling okay ; he reports anxiety regarding placement. Continue current tx plan. 11/06: DM referral has appropriate concerns re living stuation cont abilify lamictal 11/07: Pt cooperative with care d/c planning working with cont d/c planning cont lamictal abilify 11/11: Patient increasingly despairing aware of no clear discharge plan periods needs cuing for much functioning limited social engaged needs help regarding diabetes and medication compliance reportedly had been rejected by multiple rest homes patient not threatening intermittently hopeless helpless very limited family contact at this time 11/12: pt flat depressed hopeless helpless unable to fx without structure 11/15 continue tx. 11/16 continue tx. 11/17: Continue plan of care referral to [facility] TSH low will decrease levothyroxine 11/18: Pt flat dysphor ic inc hopeless helpless lamictal 150 hs dec levothyroxine 150 d/c planning cont 11/20: Keeping to self. Laying in bed most of morning. Pt reports feeling depressed because of the situation . Continues to deny SI/HI/VH/AH. Pt is hoping for housing soon. 11/21: Active on unit, social with peers. Pt continues to report feeling depressed because of the situation . denies SI/HI/VH/AH. Denies any issues at this time. 11/22: Continue current regimen and plans 11/23: Continue current regimen and plans Reason for continued inpatient stay Substantial Risk for: med/psych decompensation Time Spent With Patient Time: Total time managing care of this patient today ____ minutes.
[2023-11-24 12:52] LABS: Glucose, Whole Blood 96 mg/dL (60-115)
[2023-11-24 13:27] LABS: Creatinine Clr Calc Pharmacy 83.1; Estimated Glomerular Filt Rate > 60
[2023-11-24 17:27] LABS: Glucose, Whole Blood 107 mg/dL (60-115)
[2023-11-24] MEDS: metFORMIN HCl ER 500 MG TAB.ER.24H 1000 MG PO (18:06)
[2023-11-24 19:57] VITALS: BP 122/66; PULSE 85; RESP 16; TEMP 36.7; O2SAT 95
[2023-11-24 21:06] LABS: Glucose, Whole Blood 161 mg/dL (60-115)
[2023-11-24] MEDS: Insulin Glargine,Hum.rec.anlog 100 UNIT/ML 10 ML VIAL 20 UNIT SUBCUT (21:07)
[2023-11-24] MEDS: Insulin Lispro 100 UNIT/ML 3 ML VIAL SUBCUT (21:07)
[2023-11-24] MEDS: ARIPiprazole 10 MG TABLET PO (21:09)
[2023-11-24] MEDS: lamoTRIgine 100 MG TABLET 150 MG PO (21:10)
[2023-11-25 08:45] VITALS: BP 114/71; PULSE 72; RESP 18; TEMP 36.7; O2SAT 96
[2023-11-25] MEDS: Levothyroxine Sodium 150 MCG TABLET PO (08:53)
[2023-11-25] MEDS: Sertraline HCL 100 MG TABLET PO (08:53)
[2023-11-25] MEDS: Memantine HCl 5 MG TABLET PO ×2 (08:53→21:02)
--- NOTE | 2023-11-25 08:53 | HO.PSYCHPN ---
Subjective Subjective Date of Service: 11/25/23 Reason For Visit: paranoia cognitive impairment Subjective Notes: Conditional Voluntary Interim History: Reviewed with Dr. Gonzalez. Active on unit, social with peers. Denies any issues at this time. Visited with his sister, Ros. Pt reports visit went well. He reports feeling alright today. Medication Compliance: Yes Side effects from medications: No Attending Groups: Yes Review of Systems Constitutional: Reports as per HPI Eyes: Reports as per HPI Reports as per HPI Cardiovascular: Reports as per HPI Respiratory: Reports as per HPI Gastrointestinal: Reports as per HPI Genitourinary: Reports as per HPI Musculoskeletal: Reports as per HPI Skin/Breast: Reports as per HPI Reports as per HPI Psychiatric: Reports as per HPI Endocrine: Reports as per HPI Hematologic/Lymphatic: Reports as per HPI Allergic/Immunologic: Reports as per HPI Mental Status Exam Mental Status Exam Patient Appearance: Disheveled Patient Orientation: Person, Place and Situation Level of Consciousness: Awake Patient Behavior: Appropriate and Cooperative Mood Description: Calm, Blunted and Flat Affect Description: Blunted Patient Cognition Impaired: Yes Ability to Follow Directions: Fair Speech Pattern: Clear and Soft-Spoken 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: Technician Test Systems Impaired Diagnostics Vital Signs (24Hr): Vital Signs - 24 hr 11/24/23 19:57 Temperature 98.0 F Pulse Rate 85 Respiratory Rate 16 Blood Pressure 122/66 Pulse Oximetry 95 Oxygen Delivery Method Room Air BMI result Body Mass Index 31.9 Labs 09/10/23 20:00 11/24/23 12:55 Labs: Laboratory Results - last 48 hr 11/23/23 11/23/23 11/23/23 08:28 12:46 17:34 Creatinine 0.88 Estim Creat Clear Calc 104.8 Estimated GFR > 60 POC Glucose 190 H 138 H 11/23/23 11/24/23 11/24/23 21:09 08:31 12:46 Creatinine Estim Creat Clear Calc Estimated GFR POC Glucose 186 H 100 96 11/24/23 11/24/23 11/24/23 12:55 17:23 21:02 Creatinine 1.11 Estim Creat Clear Calc 83.1 Estimated GFR > 60 POC Glucose 107 161 H Imaging Radiology Impressions: ITS Impressions Brain MRI 09/19/23 20:33 IMPRESSION: 1. No demonstrated acute intracranial abnormalities. 2. Chronic mild to moderate nonspecific white matter changes, most notably in the deep white matter of the right frontal lobe. Mild to moderate generalized cerebral volume loss. Medications Medications Current Medications Acetaminophen (Acetaminophen 325 Mg Tablet) 650 mg PO Q6H PRN PRN Reason: Headache/Pain Mild Scale (1-3) Last Admin: 10/13/23 09:39 Dose: 650 mg Al Hydroxide/Mg Hydroxide (Magnesium Hydrox/Alum Hydrox 30 Ml Oral.Susp) 30 ml PO Q6H PRN PRN Reason: Heartburn/Nausea Aripiprazole (Aripiprazole 10 Mg Tablet) 10 mg PO BEDTIME [facility] Last Admin: 11/24/23 21:09 Dose: 10 mg Benztropine Mesylate (Benztropine Mesylate 0.5 Mg Tablet) 0.5 mg PO TID PRN PRN Reason: Extrapyramidal Effects Glucose (Glucose Gel 15 Gm Gel..Gram.) 15 gm PO Q15M PRN; Protocol PRN Reason: per Hypoglycemia Standing Ord. Hydroxyzine HCl (Hydroxyzine Hcl 25 Mg Tablet) 25 mg PO Q6H PRN PRN Reason: Anxiety Last Admin: 10/27/23 20:38 Dose: 25 mg Dextrose (D10) 250 mls @ 750 mls/hr IV Q15M PRN; Protocol PRN Reason: per Hypoglycemia Standing Ord. Insulin Glargine (Insulin Glargine,Hum.Rec.Anlog 100 Unit/Ml 10 Ml Vial) 20 unit SUBCUT BEDTIME [facility] Last Admin: 11/24/23 21:07 Dose: 20 unit Insulin Human Lispro (Insulin Lispro 100 Unit/Ml 3 Ml Vial) 0 unit SUBCUT QIDACHS [facility]; Protocol Last Admin: 11/24/23 21:07 Dose: 2 unit Lamotrigine (Lamotrigine 100 Mg Tablet) 150 mg PO BEDTIME [facility] Last Admin: 11/24/23 21:10 Dose: 150 mg Levothyroxine Sodium (Levothyroxine Sodium 150 Mcg Tablet) 150 mcg PO DAILY@0600 [facility] Last Admin: 11/24/23 08:47 Dose: 150 mcg Magnesium Hydroxide (Milk Of Magnesia 30 Ml Oral.Susp) 30 ml PO DAILY PRN PRN Reason: Constipation Memantine (Memantine Hcl 5 Mg Tablet) 5 mg PO BID [facility] Last Admin: 11/24/23 21:10 Dose: 5 mg Metformin HCl (Metformin Hcl Er 500 Mg Tab.Er.24h) 1,000 mg PO DAILY@1700 [facility] Last Admin: 11/24/23 18:06 Dose: 1,000 mg Nicotine Polacrilex (Nicotine Polacrilex 2 Mg Gum) 4 mg BUCCAL Q2H PRN PRN Reason: Nicotine Cravings Sertraline HCl (Sertraline Hcl 100 Mg Tablet) 100 mg PO DAILY [facility] Last Admin: 11/24/23 08:47 Dose: 100 mg Simethicone (Simethicone 80 Mg Tab.Chew) 80 mg PO QIDWMHS PRN PRN Reason: Gas Trazodone HCl (Trazodone Hcl 50 Mg Tablet) 50 mg PO BEDTIME MRX1 PRN PRN Reason: Insomnia Last Admin: 11/10/23 20:29 Dose: 50 mg Allergies Allergies Allergy/AdvReac Type Severity Reaction Status Date / Time amoxicillin [AMOXICILLIN] Allergy Mild VOMITING/ABD Verified 09/10/23 19:44 PAIN Assessment & Plan Assessment & Plan (1) Schizoaffective disorder: Status: Acute Code(s): F25.9 - Schizoaffective disorder, unspecified (2) Hypothyroidism: Status: Acute Code(s): E03.9 - Hypothyroidism, unspecified (3) Type 2 diabetes mellitus: Status: Acute Code(s): E11.9 - Type 2 diabetes mellitus without complications (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 Plan: CV 15 minute safety checks Continue home medications: Haldol 10mg PO daily Synthroid 200mcg PO daily Obtain labs; A1C/POCs Obtain collateral from sister Obtain records from last hospitalization. MOCA Referral for [facility] services if patient is agreeable. encourage medication compliance;consider VARGAS discharge planning 09/11: Elevated fasting blood sugar elevated hemoglobin A1c 9.2 med consult placed put in point of care needed will start metformin Would benefit from clarity over recent hospitalization what this were done details regarding treatment continue Haldol unclear if patient has Healthcare proxy his [place] was low slowed cognition with poor details in depth at times during blankly regarding making judgments Unclear if any of this relates to past coma or 2 hypothyroidism. He does seem more impaired than when last seen unclear when last imaging was. Continue Haldol sitter neuro indira involvement regarding diagnostic picture. Patient does remain paranoid blunted suspicious apathetic. He might benefit from longer-term placement if available and appropriate at a later time involved [facility] involvement would be quite helpful 09/12: cont haldol get records ? hcp ? start antidep unclear hx 09/13: Keeping to self. More talkative today. Pt concerned he will be transferred to [facility]. Pt stated, The paper I signed yesterday. Are you going to send me back to the last hospital? That place was horrible . Pt was educated he signed a release of information with Dr. Gonzalez to obtain records from [facility]. Pt was given a copy of the release he signed. Despite this, pt continues to be anxious about being transferred. Pt denies SI/HI/VH/AH. 09/14: Keeping to self. active on unit. showered. Pt reports feeling alright today; pt reports he is worried about where I'm going to go . Pt continues concerned he will be transferred to [facility]. Pt denies SI/HI/VH/AH. 09/15:Pt reports feeling alright today; pt continues to report he is worried about where I'm going to go . Responding with brief responses. Guarded. Observed standing in one place for a long period of time. Appears confused. Pt denies SI/HI/VH/AH. T/W spoke to patient's sister, Ros, with patients verbal consent. Ros reports concerns regarding patients ability to make decisions regarding his mental and physical health. She plans on contacting legal advice on obtaining guardianship of patient. 09/16:Patient's presents similar to yesterday's presentation. Responding with brief responses. Guarded. Observed standing in one place for a long period of time, when asked what he is doing, pt stated, I don't know . Pt reports he plans on contacting his sister today and try to convince her for me to stay there . Pt denies SI/HI/VH/AH. Continue current tx plan. 09/17: brief responses. Guarded. 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 Pt denies SI/HI/VH/AH. T/W and Dr. Gonzalez spoke to patient's sister, Ros. Ros stated being [facility] HCP and plans on finding document. She plans on coming to the hospital on Saturday to be present for [facility] intake. 09/21: No changes 09/22:Patient flat apathetic difficult insight and judgment his sister is healthcare proxy if needed patient is accepting medical treatment Referral to [facility] 09/23:Considers starting Haldol Decanoate patient is agreeable superficially difficulty with exec fx was seen [facility] 09/24:Pt seen in f/u mood flat dysphoric difficulty engaging in conversation preoccupied with thought he wont be living with family thing slowed apathetic no clear response with namenda ? some improvement inc lamictal start low dose sertraline inc lamictal ck tsh 09/25:Start Abilify as augmentation with Haldol see if can be more stimulating regarding depressed mood apathetic limited engagement sertraline 50 mg Lamictal 25 b.i.d. referral to [facility] which would have structure unclear if patient can engage with this he remains quite depressed has delusional beliefs regarding housing and that things have been done he has repeatedly tried to reach out to his sister denies active SI needs much help dressing talking with others encouragement to eat severe thought blocking Abilify might be more stimulating than Haldol which can be more dulling 09/26:Abilify started sertraline Lamictal encouraged step-down to [facility] encourage reality orientation denies active SI 09/27: Continue current regimen and plans 09/28: Continue current regimen and plans. 09/29: Referral to [facility] increase Abilify to 5 mg daily eventually try and taper Haldol sertraline 50 mg daily 09/30:Increase Abilify to 10 mg lower Haldol to 7 mg continue sertraline and Lamictal 10/01:Abilify increased to 10 mg continue to taper Haldol sertraline 100 mg Lamictal increased to 75 mg patient apathetic withdrawn difficulty with placement some paranoia continues difficulty with decision making at times. Not physically aggressive internally preoccupied seems somewhat improved with Abilify sertraline Continue discharge planning 10/02:Patient somewhat blunted flat slowed thinking during the day times staring. Change Abilify to 10 mg at bedtime. Scheduled Haldol will lowered to 2.5 mg Continue sertraline 100 mg Namenda 5 b.i.d. 10/03:Haldol discontinued modafinil low-dose monitor for psychosis or agitation continue discharge planning 10/06: May need to firm healthcare proxy calls have been placed to sister to try to help in discharge planning. Referrals made. Patient cooperative with care 10/07:Pharmacy ordering Abilify maintain a increase modafinil 100 mg patient remains flat passive depressed some improvement noted no current paranoia noted continue discharge planning no current safe discharge plan 10/08: Increase Lamictal 100 mg Abilify Maintena 400 mg hold modafinil unclear if was overly stimulating patient continues to present internally preoccupied. 10/09:Healthcare proxy invoked discharge planning continue Lamictal Abilify pending maintain a 10/10:Healthcare proxy invoked new CV signed discharge planning. 10/11 keep same treatment 10/12 keep same treatment 10/13: Continue plan of care Lamictal Abilify discharge planning sertraline 10/14: stable. continue current mgmt. 10/15: stable. continue current mgmt. 10/16: stable presentation. continue current mgmt. 10/17: as for yesterday. 10/18: no changes. 10/19: stabel, safe. no change. 10/20: no change in presentation. calm, cooperative. active on unit, social with select peers, attending groups. Pt reports feeling alright . denies SI/HI/VH/AH. Social work waiting to hear from possible placement location. Continue current tx plan. 10/21: continue current tx plan. awaiting placement. 10/22: calm, cooperative. active on unit, social with select peers, attending groups. Pt reports feeling good ; pt stated, I'm waiting to see where I'm going . denies SI/HI/VH/AH. Showered with encouragement. 10/23: continue current tx plan. 10/24: calm, cooperative. active on unit, social with select peers, attending groups. Pt reports feeling good ; pt stated, I just want a place to live . 10/25- likely at baseline for him- CTP 10/26 CTP likely needs placement 10/27: continue current tx plan. awaiting placement. 10/28: Similar to yesterday. No change in presentation. 10/29: Pt reports feeling good ;pt stated, just waiting for a place to live . denies any issues at this time. 10/30: calm, cooperative. active on unit, social with select peers, attending groups. Pt reports feeling worried about where I am going to live . denies any issues at this time. 10/21: no change in presentation. continue current tx plan. 11/01: continue current management and treatment plan. 11/02: Continue current management and treatment plan. 11/03: Continue current management and treatment plan. 11/04: Active on unit. calm, cooperative. social with select peers, attending groups. denies any issues at this time. He reports sleeping well. Pt reports he would be interested in applying for [facility] services; social work aware. 11/05: Active on unit. calm, cooperative. social with select peers, attending groups. denies any issues at this time. Pt reports feeling okay ; he reports anxiety regarding placement. Continue current tx plan. 11/06: [facility] referral has appropriate concerns re living stuation cont abilify lamictal 11/07: Pt cooperative with care d/c planning working with cont d/c planning cont lamictal abilify 11/11: Patient increasingly despairing aware of no clear discharge plan periods needs cuing for much functioning limited social engaged needs help regarding diabetes and medication compliance reportedly had been rejected by multiple rest homes patient not threatening intermittently hopeless helpless very limited family contact at this time 11/12: pt flat depressed hopeless helpless unable to fx without structure 11/15 continue tx. 11/16 continue tx. 11/17: Continue plan of care referral to [facility] TSH low will decrease levothyroxine 11/18: Pt flat dysphor ic inc hopeless helpless lamictal 150 hs dec levothyroxine 150 d/c planning cont 11/20: Keeping to self. Laying in bed most of morning. Pt reports feeling depressed because of the situation . Continues to deny SI/HI/VH/AH. Pt is hoping for housing soon. 11/21: Active on unit, social with peers. Pt continues to report feeling depressed because of the situation . denies SI/HI/VH/AH. Denies any issues at this time. 11/22: Continue current regimen and plans 11/23: Continue current regimen and plans 11/24: Denies any issues at this time. Visited with his sister, Ros. Pt reports visit went well. He reports feeling alright today. Waiting on placement. Patient educated on: therapeutic strategies Reason for continued inpatient stay Substantial Risk for: other (waiting for placement.) Time Spent With Patient Time: Total time managing care of this patient today _20___ minutes.
[2023-11-25 09:03] LABS: Glucose, Whole Blood 100 mg/dL (60-115)
[2023-11-25 13:13] LABS: Glucose, Whole Blood 183 mg/dL (60-115)
[2023-11-25] MEDS: Insulin Lispro 100 UNIT/ML 3 ML VIAL SUBCUT ×3 (13:20→21:00)
[2023-11-25] MEDS: metFORMIN HCl ER 500 MG TAB.ER.24H 1000 MG PO (17:50)
[2023-11-25 18:12] LABS: Glucose, Whole Blood 166 mg/dL (60-115)
[2023-11-25 20:00] VITALS: BP 133/70; PULSE 99; RESP 16; TEMP 36.6; O2SAT 99
[2023-11-25 20:36] LABS: Glucose, Whole Blood 162 mg/dL (60-115)
[2023-11-25] MEDS: Insulin Glargine,Hum.rec.anlog 100 UNIT/ML 10 ML VIAL 20 UNIT SUBCUT (21:00)
[2023-11-25] MEDS: ARIPiprazole 10 MG TABLET PO (21:02)
[2023-11-25] MEDS: lamoTRIgine 100 MG TABLET 150 MG PO (21:02)
[2023-11-26 07:57] VITALS: BP 117/58; PULSE 73; RESP 16; TEMP 36.8; O2SAT 95
[2023-11-26 08:41] LABS: Glucose, Whole Blood 103 mg/dL (60-115)
--- NOTE | 2023-11-26 08:57 | HO.PSYCHPN ---
Subjective Subjective Date of Service: 11/26/23 Reason For Visit: paranoia cognitive impairment Subjective Notes: Conditional Voluntary Interim History: Reviewed with Dr. Gonzalez. Active on unit, social with peers. Denies any issues at this time. Pt reports feeling so-so today; he reports feeling impatient regarding placement. showered with staff encouragement. Medication Compliance: Yes Side effects from medications: No Attending Groups: Yes Review of Systems Constitutional: Reports as per HPI Eyes: Reports as per HPI Reports as per HPI Cardiovascular: Reports as per HPI Respiratory: Reports as per HPI Gastrointestinal: Reports as per HPI Genitourinary: Reports as per HPI Musculoskeletal: Reports as per HPI Skin/Breast: Reports as per HPI Reports as per HPI Psychiatric: Reports as per HPI Endocrine: Reports as per HPI Hematologic/Lymphatic: Reports as per HPI Allergic/Immunologic: Reports as per HPI Mental Status Exam Mental Status Exam Patient Appearance: Disheveled Patient Orientation: Person, Place and Situation Level of Consciousness: Awake Patient Behavior: Appropriate and Cooperative Mood Description: Calm, Blunted and Flat Affect Description: Blunted Patient Cognition Impaired: Yes Ability to Follow Directions: Fair Speech Pattern: Clear and Soft-Spoken 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: Assisted Impaired Diagnostics Vital Signs (24Hr): Vital Signs - 24 hr 11/25/23 20:00 11/26/23 07:57 Temperature 97.8 F 98.2 F Pulse Rate 99 73 Respiratory Rate 16 16 Blood Pressure 133/70 117/58 L Pulse Oximetry 99 95 Oxygen Delivery Method Room Air Room Air BMI result Body Mass Index 31.9 Labs 09/10/23 20:00 11/24/23 12:55 Labs: Laboratory Results - last 48 hr 11/24/23 11/24/23 11/24/23 12:46 12:55 17:23 Creatinine 1.11 Estim Creat Clear Calc 83.1 Estimated GFR > 60 POC Glucose 96 107 11/24/23 11/25/23 11/25/23 21:02 08:57 12:51 Creatinine Estim Creat Clear Calc Estimated GFR POC Glucose 161 H 100 183 H 11/25/23 11/25/23 11/26/23 18:06 20:29 08:28 Creatinine Estim Creat Clear Calc Estimated GFR POC Glucose 166 H 162 H 103 Imaging Radiology Impressions: ITS Impressions Brain MRI 09/19/23 20:33 IMPRESSION: 1. No demonstrated acute intracranial abnormalities. 2. Chronic mild to moderate nonspecific white matter changes, most notably in the deep white matter of the right frontal lobe. Mild to moderate generalized cerebral volume loss. Medications Medications Current Medications Acetaminophen (Acetaminophen 325 Mg Tablet) 650 mg PO Q6H PRN PRN Reason: Headache/Pain Mild Scale (1-3) Last Admin: 10/13/23 09:39 Dose: 650 mg Al Hydroxide/Mg Hydroxide (Magnesium Hydrox/Alum Hydrox 30 Ml Oral.Susp) 30 ml PO Q6H PRN PRN Reason: Heartburn/Nausea Aripiprazole (Aripiprazole 10 Mg Tablet) 10 mg PO BEDTIME [facility] Last Admin: 11/25/23 21:02 Dose: 10 mg Benztropine Mesylate (Benztropine Mesylate 0.5 Mg Tablet) 0.5 mg PO TID PRN PRN Reason: Extrapyramidal Effects Glucose (Glucose Gel 15 Gm Gel..Gram.) 15 gm PO Q15M PRN; Protocol PRN Reason: per Hypoglycemia Standing Ord. Hydroxyzine HCl (Hydroxyzine Hcl 25 Mg Tablet) 25 mg PO Q6H PRN PRN Reason: Anxiety Last Admin: 10/27/23 20:38 Dose: 25 mg Dextrose (D10) 250 mls @ 750 mls/hr IV Q15M PRN; Protocol PRN Reason: per Hypoglycemia Standing Ord. Insulin Glargine (Insulin Glargine,Hum.Rec.Anlog 100 Unit/Ml 10 Ml Vial) 20 unit SUBCUT BEDTIME [facility] Last Admin: 11/25/23 21:00 Dose: 20 unit Insulin Human Lispro (Insulin Lispro 100 Unit/Ml 3 Ml Vial) 0 unit SUBCUT QIDACHS [facility]; Protocol Last Admin: 11/26/23 08:51 Dose: Not Given Lamotrigine (Lamotrigine 100 Mg Tablet) 150 mg PO BEDTIME [facility] Last Admin: 11/25/23 21:02 Dose: 150 mg Levothyroxine Sodium (Levothyroxine Sodium 150 Mcg Tablet) 150 mcg PO DAILY@0800 [facility] Magnesium Hydroxide (Milk Of Magnesia 30 Ml Oral.Susp) 30 ml PO DAILY PRN PRN Reason: Constipation Memantine (Memantine Hcl 5 Mg Tablet) 5 mg PO BID [facility] Last Admin: 11/25/23 21:02 Dose: 5 mg Metformin HCl (Metformin Hcl Er 500 Mg Tab.Er.24h) 1,000 mg PO DAILY@1700 [facility] Last Admin: 11/25/23 17:50 Dose: 1,000 mg Nicotine Polacrilex (Nicotine Polacrilex 2 Mg Gum) 4 mg BUCCAL Q2H PRN PRN Reason: Nicotine Cravings Sertraline HCl (Sertraline Hcl 100 Mg Tablet) 100 mg PO DAILY [facility] Last Admin: 11/25/23 08:53 Dose: 100 mg Simethicone (Simethicone 80 Mg Tab.Chew) 80 mg PO QIDWMHS PRN PRN Reason: Gas Trazodone HCl (Trazodone Hcl 50 Mg Tablet) 50 mg PO BEDTIME MRX1 PRN PRN Reason: Insomnia Last Admin: 11/10/23 20:29 Dose: 50 mg Allergies Allergies Allergy/AdvReac Type Severity Reaction Status Date / Time amoxicillin [AMOXICILLIN] Allergy Mild VOMITING/ABD Verified 09/10/23 19:44 PAIN Assessment & Plan Assessment & Plan (1) Schizoaffective disorder: Status: Acute Code(s): F25.9 - Schizoaffective disorder, unspecified (2) Hypothyroidism: Status: Acute Code(s): E03.9 - Hypothyroidism, unspecified (3) Type 2 diabetes mellitus: Status: Acute Code(s): E11.9 - Type 2 diabetes mellitus without complications (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 Plan: CV 15 minute safety checks Continue home medications: Haldol 10mg PO daily Synthroid 200mcg PO daily Obtain labs; A1C/POCs Obtain collateral from sister Obtain records from last hospitalization. MOCA Referral for [facility] services if patient is agreeable. encourage medication compliance;consider VARGAS discharge planning 09/11: Elevated fasting blood sugar elevated hemoglobin A1c 9.2 med consult placed put in point of care needed will start metformin Would benefit from clarity over recent hospitalization what this were done details regarding treatment continue Haldol unclear if patient has Healthcare proxy his Parker was low slowed cognition with poor details in depth at times during blankly regarding making judgments Unclear if any of this relates to past coma or 2 hypothyroidism. He does seem more impaired than when last seen unclear when last imaging was. Continue Haldol sitter neuro indira involvement regarding diagnostic picture. Patient does remain paranoid blunted suspicious apathetic. He might benefit from longer-term placement if available and appropriate at a later time involved [facility] involvement would be quite helpful 09/12: cont haldol get records ? hcp ? start antidep unclear hx 09/13: Keeping to self. More talkative today. Pt concerned he will be transferred to [facility]. Pt stated, The paper I signed yesterday. Are you going to send me back to the last hospital? That place was horrible . Pt was educated he signed a release of information with Dr. Gonzalez to obtain records from [facility]. Pt was given a copy of the release he signed. Despite this, pt continues to be anxious about being transferred. Pt denies SI/HI/VH/AH. 09/14: Keeping to self. active on unit. showered. Pt reports feeling alright today; pt reports he is worried about where I'm going to go . Pt continues concerned he will be transferred to [facility]. Pt denies SI/HI/VH/AH. 09/15:Pt reports feeling alright today; pt continues to report he is worried about where I'm going to go . Responding with brief responses. Guarded. Observed standing in one place for a long period of time. Appears confused. Pt denies SI/HI/VH/AH. T/W spoke to patient's sister, Ros, with patients verbal consent. Ros reports concerns regarding patients ability to make decisions regarding his mental and physical health. She plans on contacting legal advice on obtaining guardianship of patient. 09/16:Patient's presents similar to yesterday's presentation. Responding with brief responses. Guarded. Observed standing in one place for a long period of time, when asked what he is doing, pt stated, I don't know . Pt reports he plans on contacting his sister today and try to convince her for me to stay there . Pt denies SI/HI/VH/AH. Continue current tx plan. 09/17: brief responses. Guarded. 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 Pt denies SI/HI/VH/AH. T/W and Dr. Gonzalez spoke to patient's sister, Ros. Ros stated being [facility] HCP and plans on finding document. She plans on coming to the hospital on Saturday to be present for [facility] intake. 09/21: No changes 09/22:Patient flat apathetic difficult insight and judgment his sister is healthcare proxy if needed patient is accepting medical treatment Referral to [facility] 09/23:Considers starting Haldol Decanoate patient is agreeable superficially difficulty with exec fx was seen [facility] 09/24:Pt seen in f/u mood flat dysphoric difficulty engaging in conversation preoccupied with thought he wont be living with family thing slowed apathetic no clear response with namenda ? some improvement inc lamictal start low dose sertraline inc lamictal ck tsh 09/25:Start Abilify as augmentation with Haldol see if can be more stimulating regarding depressed mood apathetic limited engagement sertraline 50 mg Lamictal 25 b.i.d. referral to [facility] which would have structure unclear if patient can engage with this he remains quite depressed has delusional beliefs regarding housing and that things have been done he has repeatedly tried to reach out to his sister denies active SI needs much help dressing talking with others encouragement to eat severe thought blocking Abilify might be more stimulating than Haldol which can be more dulling 09/26:Abilify started sertraline Lamictal encouraged step-down to [facility] encourage reality orientation denies active SI 09/27: Continue current regimen and plans 09/28: Continue current regimen and plans. 09/29: Referral to [facility] increase Abilify to 5 mg daily eventually try and taper Haldol sertraline 50 mg daily 09/30:Increase Abilify to 10 mg lower Haldol to 7 mg continue sertraline and Lamictal 10/01:Abilify increased to 10 mg continue to taper Haldol sertraline 100 mg Lamictal increased to 75 mg patient apathetic withdrawn difficulty with placement some paranoia continues difficulty with decision making at times. Not physically aggressive internally preoccupied seems somewhat improved with Abilify sertraline Continue discharge planning 10/02:Patient somewhat blunted flat slowed thinking during the day times staring. Change Abilify to 10 mg at bedtime. Scheduled Haldol will lowered to 2.5 mg Continue sertraline 100 mg Namenda 5 b.i.d. 10/03:Haldol discontinued modafinil low-dose monitor for psychosis or agitation continue discharge planning 10/06: May need to firm healthcare proxy calls have been placed to sister to try to help in discharge planning. Referrals made. Patient cooperative with care 10/07:Pharmacy ordering Abilify maintain a increase modafinil 100 mg patient remains flat passive depressed some improvement noted no current paranoia noted continue discharge planning no current safe discharge plan 10/08: Increase Lamictal 100 mg Abilify Maintena 400 mg hold modafinil unclear if was overly stimulating patient continues to present internally preoccupied. 10/09:Healthcare proxy invoked discharge planning continue Lamictal Abilify pending maintain a 10/10:Healthcare proxy invoked new CV signed discharge planning. 10/11 keep same treatment 10/12 keep same treatment 10/13: Continue plan of care Lamictal Abilify discharge planning sertraline 10/14: stable. continue current mgmt. 10/15: stable. continue current mgmt. 10/16: stable presentation. continue current mgmt. 10/17: as for yesterday. 10/18: no changes. 10/19: stabel, safe. no change. 10/20: no change in presentation. calm, cooperative. active on unit, social with select peers, attending groups. Pt reports feeling alright . denies SI/HI/VH/AH. Social work waiting to hear from possible placement location. Continue current tx plan. 10/21: continue current tx plan. awaiting placement. 10/22: calm, cooperative. active on unit, social with select peers, attending groups. Pt reports feeling good ; pt stated, I'm waiting to see where I'm going . denies SI/HI/VH/AH. Showered with encouragement. 10/23: continue current tx plan. 10/24: calm, cooperative. active on unit, social with select peers, attending groups. Pt reports feeling good ; pt stated, I just want a place to live . 10/25- likely at baseline for him- CTP 10/26 CTP likely needs placement 10/27: continue current tx plan. awaiting placement. 10/28: Similar to yesterday. No change in presentation. 10/29: Pt reports feeling good ;pt stated, just waiting for a place to live . denies any issues at this time. 10/30: calm, cooperative. active on unit, social with select peers, attending groups. Pt reports feeling worried about where I am going to live . denies any issues at this time. 10/21: no change in presentation. continue current tx plan. 11/01: continue current management and treatment plan. 11/02: Continue current management and treatment plan. 11/03: Continue current management and treatment plan. 11/04: Active on unit. calm, cooperative. social with select peers, attending groups. denies any issues at this time. He reports sleeping well. Pt reports he would be interested in applying for [facility] services; social work aware. 11/05: Active on unit. calm, cooperative. social with select peers, attending groups. denies any issues at this time. Pt reports feeling okay ; he reports anxiety regarding placement. Continue current tx plan. 11/06: [facility] referral has appropriate concerns re living stuation cont abilify lamictal 11/07: Pt cooperative with care d/c planning working with cont d/c planning cont lamictal abilify 11/11: Patient increasingly despairing aware of no clear discharge plan periods needs cuing for much functioning limited social engaged needs help regarding diabetes and medication compliance reportedly had been rejected by multiple rest homes patient not threatening intermittently hopeless helpless very limited family contact at this time 11/12: pt flat depressed hopeless helpless unable to fx without structure 11/15 continue tx. 11/16 continue tx. 11/17: Continue plan of care referral to [facility] TSH low will decrease levothyroxine 11/18: Pt flat dysphor ic inc hopeless helpless lamictal 150 hs dec levothyroxine 150 d/c planning cont 11/20: Keeping to self. Laying in bed most of morning. Pt reports feeling depressed because of the situation . Continues to deny SI/HI/VH/AH. Pt is hoping for housing soon. 11/21: Active on unit, social with peers. Pt continues to report feeling depressed because of the situation . denies SI/HI/VH/AH. Denies any issues at this time. 11/22: Continue current regimen and plans 11/23: Continue current regimen and plans 11/24: Denies any issues at this time. Visited with his sister, Ros. Pt reports visit went well. He reports feeling alright today. Waiting on placement. 11/25: Pt reports feeling so-so today; he reports feeling impatient regarding placement. showered with staff encouragement. Reason for continued inpatient stay Substantial Risk for: other Time Spent With Patient Time: Total time managing care of this patient today _20___ minutes.
[2023-11-26] MEDS: Sertraline HCL 100 MG TABLET PO (09:26)
[2023-11-26] MEDS: Memantine HCl 5 MG TABLET PO ×2 (09:27→21:19)
[2023-11-26] MEDS: Levothyroxine Sodium 150 MCG TABLET PO (09:27)
[2023-11-26 12:51] LABS: Glucose, Whole Blood 110 mg/dL (60-115)
[2023-11-26] MEDS: metFORMIN HCl ER 500 MG TAB.ER.24H 1000 MG PO (17:48)
[2023-11-26 17:49] LABS: Glucose, Whole Blood 133 mg/dL (60-115)
[2023-11-26 20:00] VITALS: BP 111/57; PULSE 84; RESP 16; TEMP 36.7; O2SAT 97
[2023-11-26 21:04] LABS: Glucose, Whole Blood 188 mg/dL (60-115)
[2023-11-26] MEDS: lamoTRIgine 100 MG TABLET 150 MG PO (21:19)
[2023-11-26] MEDS: ARIPiprazole 10 MG TABLET PO (21:19)
[2023-11-26] MEDS: Insulin Lispro 100 UNIT/ML 3 ML VIAL SUBCUT (21:21)
[2023-11-26] MEDS: Insulin Glargine,Hum.rec.anlog 100 UNIT/ML 10 ML VIAL 20 UNIT SUBCUT (21:21)
[2023-11-27 08:00] VITALS: RESP 18
[2023-11-27 08:45] LABS: Glucose, Whole Blood 155 mg/dL (60-115)
--- NOTE | 2023-11-27 09:02 | P.PNPSI_ITS ---
Subjective Subjective Date of Service: 11/27/23 Reason For Visit: paranoia cognitive impairment Subjective Notes: Conditional Voluntary Interim History: Reviewed with Dr. Gonzalez. Active on unit, social with peers. Denies any issues at this time. Pt reports feeling okay today; he reports feeling impatient regarding placement. Medication Compliance: Yes Side effects from medications: No Attending Groups: Yes Review of Systems Constitutional: Reports as per HPI Eyes: Reports as per HPI Reports as per HPI Cardiovascular: Reports as per HPI Respiratory: Reports as per HPI Gastrointestinal: Reports as per HPI Genitourinary: Reports as per HPI Musculoskeletal: Reports as per HPI Skin/Breast: Reports as per HPI Reports as per HPI Psychiatric: Reports as per HPI Endocrine: Reports as per HPI Hematologic/Lymphatic: Reports as per HPI Allergic/Immunologic: Reports as per HPI Mental Status Exam Mental Status Exam Patient Appearance: Disheveled Patient Orientation: Person, Place and Situation Level of Consciousness: Awake Patient Behavior: Appropriate and Cooperative Mood Description: Calm, Blunted and Flat Affect Description: Blunted Patient Cognition Impaired: Yes Ability to Follow Directions: Fair Speech Pattern: Clear and Soft-Spoken 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 No demonstrated acute intracranial abnormalities. 2. Chronic mild to moderate nonspecific white matter changes, most notably in the deep white matter of the right frontal lobe. Mild to moderate generalized cerebral volume loss. Medications Medications Current Medications Acetaminophen (Acetaminophen 325 Mg Tablet) 650 mg PO Q6H PRN PRN Reason: Headache/Pain Mild Scale (1-3) Last Admin: 10/13/23 09:39 Dose: 650 mg Al Hydroxide/Mg Hydroxide (Magnesium Hydrox/Alum Hydrox 30 Ml Oral.Susp) 30 ml PO Q6H PRN PRN Reason: Heartburn/Nausea Aripiprazole (Aripiprazole 10 Mg Tablet) 10 mg PO BEDTIME [facility] Last Admin: 11/26/23 21:19 Dose: 10 mg Benztropine Mesylate (Benztropine Mesylate 0.5 Mg Tablet) 0.5 mg PO TID PRN PRN Reason: Extrapyramidal Effects Glucose (Glucose Gel 15 Gm Gel..Gram.) 15 gm PO Q15M PRN; Protocol PRN Reason: per Hypoglycemia Standing Ord. Hydroxyzine HCl (Hydroxyzine Hcl 25 Mg Tablet) 25 mg PO Q6H PRN PRN Reason: Anxiety Last Admin: 10/27/23 20:38 Dose: 25 mg Dextrose (D10) 250 mls @ 750 mls/hr IV Q15M PRN; Protocol PRN Reason: per Hypoglycemia Standing Ord. Insulin Glargine (Insulin Glargine,Hum.Rec.Anlog 100 Unit/Ml 10 Ml Vial) 20 unit SUBCUT BEDTIME [facility] Last Admin: 11/26/23 21:21 Dose: 20 unit Insulin Human Lispro (Insulin Lispro 100 Unit/Ml 3 Ml Vial) 0 unit SUBCUT QIDACHS [facility]; Protocol Last Admin: 11/26/23 21:21 Dose: 2 unit Lamotrigine (Lamotrigine 100 Mg Tablet) 150 mg PO BEDTIME [facility] Last Admin: 11/26/23 21:19 Dose: 150 mg Levothyroxine Sodium (Levothyroxine Sodium 150 Mcg Tablet) 150 mcg PO DAILY@0800 [facility] Last Admin: 11/26/23 09:27 Dose: 150 mcg Magnesium Hydroxide (Milk Of Magnesia 30 Ml Oral.Susp) 30 ml PO DAILY PRN PRN Reason: Constipation Memantine (Memantine Hcl 5 Mg Tablet) 5 mg PO BID [facility] Last Admin: 11/26/23 21:19 Dose: 5 mg Metformin HCl (Metformin Hcl Er 500 Mg Tab.Er.24h) 1,000 mg PO DAILY@1700 [facility] Last Admin: 11/26/23 17:48 Dose: 1,000 mg Nicotine Polacrilex (Nicotine Polacrilex 2 Mg Gum) 4 mg BUCCAL Q2H PRN PRN Reason: Nicotine Cravings Sertraline HCl (Sertraline Hcl 100 Mg Tablet) 100 mg PO DAILY MANAS Last Admin: 11/26/23 09:26 Dose: 100 mg Simethicone (Simethicone 80 Mg Tab.Chew) 80 mg PO QIDWMHS PRN PRN Reason: Gas Trazodone HCl (Trazodone Hcl 50 Mg Tablet) 50 mg PO BEDTIME MRX1 PRN PRN Reason: Insomnia Last Admin: 11/10/23 20:29 Dose: 50 mg Allergies Allergies Allergy/AdvReac Type Severity Reaction Status Date / Time amoxicillin [AMOXICILLIN] Allergy Mild VOMITING/ABD Verified 09/10/23 19:44 PAIN Assessment & Plan Assessment & Plan (1) Schizoaffective disorder: Status: Acute Code(s): F25.9 - Schizoaffective disorder, unspecified (2) Hypothyroidism: Status: Acute Code(s): E03.9 - Hypothyroidism, unspecified (3) Type 2 diabetes mellitus: Status: Acute Code(s): E11.9 - Type 2 diabetes mellitus without complications (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 Plan: CV 15 minute safety checks Continue home medications: Haldol 10mg PO daily Synthroid 200mcg PO daily Obtain labs; A1C/POCs Obtain collateral from sister Obtain records from last hospitalization. MOCA Referral for DMH services if patient is agreeable. encourage medication compliance;consider VARGAS discharge planning 09/11: Elevated fasting blood sugar elevated hemoglobin A1c 9.2 med consult placed put in point of care needed will start metformin Would benefit from clarity over recent hospitalization what this were done details regarding treatment continue Haldol unclear if patient has Healthcare proxy his [place] was low slowed cognition with poor details in depth at times during blankly regarding making judgments Unclear if any of this relates to past coma or 2 hypothyroidism. He does seem more impaired than when last seen unclear when last imaging was. Continue Haldol [facility]ira involvement regarding diagnostic picture. Patient does remain paranoid blunted suspicious apathetic. He might benefit from longer- term placement if available and appropriate at a later time involved [facility] involvement would be quite helpful 09/12: cont haldol get records ? hcp ? start antidep unclear hx 09/13: Keeping to self. More talkative today. Pt concerned he will be transferred to [facility]. Pt stated, The paper I signed yesterday. Are you going to send me back to the last hospital? That place was horrible . Pt was educated he signed a release of information with Dr. Gonzalez to obtain records from [facility]. Pt was given a copy of the release he signed. Despite this, pt continues to be anxious about being transferred. Pt denies SI/HI/VH/AH. 09/14: Keeping to self. active on unit. showered. Pt reports feeling alright today; pt reports he is worried about where I'm going to go . Pt continues concerned he will be transferred to [facility]. Pt denies SI/HI/VH/AH. 09/15:Pt reports feeling alright today; pt continues to report he is worried about where I'm going to go . Responding with brief responses. Guarded. Observed standing in one place for a long period of time. Appears confused. Pt denies SI/HI/VH/AH. T/W spoke to patient's sister, Ros, with patients verbal consent. Ros reports concerns regarding patients ability to make decisions regarding his mental and physical health. She plans on contacting legal advice on obtaining guardianship of patient. 09/16:Patient's presents similar to yesterday's presentation. Responding with brief responses. Guarded. Observed standing in one place for a long period of time, when asked what he is doing, pt stated, I don't know . Pt reports he plans on contacting his sister today and try to convince her for me to stay there . Pt denies SI/HI/VH/AH. Continue current tx plan. 09/17: brief responses. Guarded. 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 Pt denies SI/HI/VH/AH. T/W and Dr. Gonzalez spoke to patient's sister, Ros. Ros stated being [facility] HCP and plans on finding document. She plans on coming to the hospital on Saturday to be present for [facility] intake. 09/21: No changes 09/22:Patient flat apathetic difficult insight and judgment his sister is healthcare proxy if needed patient is accepting medical treatment Referral to [facility] 09/23:Considers starting Haldol Decano[place] patient is agreeable superficially difficulty with exec fx was seen [facility] 09/24:Pt seen in f/u mood flat dysphoric difficulty engaging in conversation preoccupied with thought he wont be living with family thing slowed apathetic no clear response with namenda ? some improvement inc lamictal start low dose sertraline inc lamictal ck tsh 09/25:Start Abilify as augmentation with Haldol see if can be more stimulating regarding depressed mood apathetic limited engagement sertraline 50 mg Lamictal 25 b.i.d. referral to [facility] which would have structure unclear if patient can engage with this he remains quite depressed has delusional beliefs regarding housing and that things have been done he has repeatedly tried to reach out to his sister denies active SI needs much help dressing talking with others encouragement to eat severe thought blocking Abilify might be more stimulating than Haldol which can be more dulling 09/26:Abilify started sertraline Lamictal encouraged step-down to [facility] encourage reality orientation denies active SI 09/27: Continue current regimen and plans 09/28: Continue current regimen and plans. 09/29: Referral to [facility] increase Abilify to 5 mg daily eventually try and taper Haldol sertraline 50 mg daily 09/30:Increase Abilify to 10 mg lower Haldol to 7 mg continue sertraline and Lamictal 10/01:Abilify increased to 10 mg continue to taper Haldol sertraline 100 mg Lamictal increased to 75 mg patient apathetic withdrawn difficulty with placement some paranoia continues difficulty with decision making at times. Not physically aggressive internally preoccupied seems somewhat improved with Abilify sertraline Continue discharge planning 10/02:Patient somewhat blunted flat slowed thinking during the day times staring. Change Abilify to 10 mg at bedtime. Scheduled Haldol will lowered to 2.5 mg Continue sertraline 100 mg Namenda 5 b.i.d. 10/03:Haldol discontinued modafinil low-dose monitor for psychosis or agitation continue discharge planning 10/06: May need to firm healthcare proxy calls have been placed to sister to try to help in discharge planning. Referrals made. Patient cooperative with care 10/07:Pharmacy ordering Abilify maintain a increase modafinil 100 mg patient remains flat passive depressed some improvement noted no current paranoia noted continue discharge planning no current safe discharge plan 10/08: Increase Lamictal 100 mg Abilify Maintena 400 mg hold modafinil unclear if was overly stimulating patient continues to present internally preoccupied. 10/09:Healthcare proxy invoked discharge planning continue Lamictal Abilify pending maintain a 10/10:Healthcare proxy invoked new CV signed discharge planning. 10/11 keep same treatment 10/12 keep same treatment 10/13: Continue plan of care Lamictal Abilify discharge planning sertraline 10/14: stable. continue current mgmt. 10/15: stable. continue current mgmt. 10/16: stable presentation. continue current mgmt. 10/17: as for yesterday. 10/18: no changes. 10/19: stabel, safe. no change. 10/20: no change in presentation. calm, cooperative. active on unit, social with select peers, attending groups. Pt reports feeling alright . denies SI/HI/VH/AH. Social work waiting to hear from possible placement location. Continue current tx plan. 10/21: continue current tx plan. awaiting placement. 10/22: calm, cooperative. active on unit, social with select peers, attending groups. Pt reports feeling good ; pt stated, I'm waiting to see where I'm going . denies SI/HI/VH/AH. Showered with encouragement. 10/23: continue current tx plan. 10/24: calm, cooperative. active on unit, social with select peers, attending groups. Pt reports feeling good ; pt stated, I just want a place to live . 10/25- likely at baseline for him- CTP 10/26 CTP likely needs placement 10/27: continue current tx plan. awaiting placement. 10/28: Similar to yesterday. No change in presentation. 10/29: Pt reports feeling good ;pt stated, just waiting for a place to live . denies any issues at this time. 10/30: calm, cooperative. active on unit, social with select peers, attending groups. Pt reports feeling worried about where I am going to live . denies any issues at this time. 10/21: no change in presentation. continue current tx plan. 11/01: continue current management and treatment plan. 11/02: Continue current management and treatment plan. 11/03: Continue current management and treatment plan. 11/04: Active on unit. calm, cooperative. social with select peers, attending groups. denies any issues at this time. He reports sleeping well. Pt reports he would be interested in applying for [facility] services; social work aware. 11/05: Active on unit. calm, cooperative. social with select peers, attending groups. denies any issues at this time. Pt reports feeling okay ; he reports anxiety regarding placement. Continue current tx plan. 11/06: DM referral has appropriate concerns re living stuation cont abilify lamictal 11/07: Pt cooperative with care d/c planning working with cont d/c planning cont lamictal abilify 11/11: Patient increasingly despairing aware of no clear discharge plan periods needs cuing for much functioning limited social engaged needs help regarding diabetes and medication compliance reportedly had been rejected by multiple rest homes patient not threatening intermittently hopeless helpless very limited family contact at this time 11/12: pt flat depressed hopeless helpless unable to fx without structure 11/15 continue tx. 11/16 continue tx. 11/17: Continue plan of care referral to [facility] TSH low will decrease levothyroxine 11/18: Pt flat dysphor ic inc hopeless helpless lamictal 150 hs dec levothyroxine 150 d/c planning cont 11/20: Keeping to self. Laying in bed most of morning. Pt reports feeling depressed because of the situation . Continues to deny SI/HI/VH/AH. Pt is hoping for housing soon. 11/21: Active on unit, social with peers. Pt continues to report feeling depressed because of the situation . denies SI/HI/VH/AH. Denies any issues at this time. 11/22: Continue current regimen and plans 11/23: Continue current regimen and plans 11/24: Denies any issues at this time. Visited with his sister, Ros. Pt reports visit went well. He reports feeling alright today. Waiting on placement. 11/25: Pt reports feeling so-so today; he reports feeling impatient regarding placement. showered with staff encouragement. 11/26: continue current tx plan. Reason for continued inpatient stay Substantial Risk for: other Time Spent With Patient Time: Total time managing care of this patient today _20___ minutes.
[2023-11-27] MEDS: Levothyroxine Sodium 150 MCG TABLET PO (09:08)
[2023-11-27] MEDS: Sertraline HCL 100 MG TABLET PO (09:08)
[2023-11-27] MEDS: Insulin Lispro 100 UNIT/ML 3 ML VIAL SUBCUT (09:08)
[2023-11-27] MEDS: Memantine HCl 5 MG TABLET PO ×2 (09:08→22:06)
[2023-11-27] MEDS: Ondansetron ODT 8 MG TAB.RAPDIS TRANSLINGU (10:48)
[2023-11-27] MEDS: Magnesium Hydrox/Alum Hydrox 30 ML ORAL.SUSP PO (10:48)
[2023-11-27 13:00] LABS: Glucose, Whole Blood 181 mg/dL (60-115)
[2023-11-27] MEDS: metFORMIN HCl ER 500 MG TAB.ER.24H 1000 MG PO (17:46)
[2023-11-27 17:48] LABS: Glucose, Whole Blood 102 mg/dL (60-115)
[2023-11-27 20:00] VITALS: BP 138/68; PULSE 82; RESP 16; TEMP 37.6; O2SAT 94
[2023-11-27 21:00] LABS: Glucose, Whole Blood 150 mg/dL (60-115)
[2023-11-27] MEDS: Insulin Glargine,Hum.rec.anlog 100 UNIT/ML 10 ML VIAL 20 UNIT SUBCUT (22:05)
[2023-11-27] MEDS: lamoTRIgine 100 MG TABLET 150 MG PO (22:06)
[2023-11-27] MEDS: ARIPiprazole 10 MG TABLET PO (22:06)
[2023-11-28 07:00] VITALS: BMI 31.9
[2023-11-28 07:45] VITALS: BP 140/81; PULSE 73; RESP 16; TEMP 36.8; O2SAT 97
[2023-11-28 08:23] LABS: Creatinine Clr Calc Pharmacy 95.1; Estimated Glomerular Filt Rate > 60
[2023-11-28 08:36] LABS: Glucose, Whole Blood 121 mg/dL (60-115)
[2023-11-28] MEDS: Memantine HCl 5 MG TABLET PO ×2 (08:55→21:27)
[2023-11-28] MEDS: Levothyroxine Sodium 150 MCG TABLET PO (08:55)
[2023-11-28] MEDS: Sertraline HCL 100 MG TABLET PO (08:55)
--- NOTE | 2023-11-28 09:18 | HO.PSYCHPN ---
Subjective Subjective Date of Service: 11/28/23 Reason For Visit: paranoia cognitive impairment Subjective Notes: Conditional Voluntary Interim History: Reviewed with Dr. Gonzalez. Active on unit, social with peers. Denies any issues at this time. Pt reports feeling okay today; waiting on placement. Medication Compliance: Yes Side effects from medications: No Attending Groups: Yes Review of Systems Constitutional: Reports as per HPI Eyes: Reports as per HPI Reports as per HPI Cardiovascular: Reports as per HPI Respiratory: Reports as per HPI Gastrointestinal: Reports as per HPI Genitourinary: Reports as per HPI Musculoskeletal: Reports as per HPI Skin/Breast: Reports as per HPI Reports as per HPI Psychiatric: Reports as per HPI Endocrine: Reports as per HPI Hematologic/Lymphatic: Reports as per HPI Allergic/Immunologic: Reports as per HPI Mental Status Exam Mental Status Exam Patient Appearance: Disheveled Patient Orientation: Person, Place and Situation Level of Consciousness: Awake Patient Behavior: Appropriate and Cooperative Mood Description: Calm, Blunted and Flat Affect Description: Blunted Patient Cognition Impaired: Yes Ability to Follow Directions: Fair Speech Pattern: Clear and Soft-Spoken 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: Folding Machine Feeder Impaired Diagnostics Vital Signs (24Hr): Vital Signs - 24 hr 11/27/23 20:00 11/28/23 07:45 Temperature 99.7 F 98.2 F Pulse Rate 82 73 Respiratory Rate 16 16 Blood Pressure 138/68 140/81 H Pulse Oximetry 94 97 Oxygen Delivery Method Room Air Room Air BMI result Body Mass Index 31.9 Labs 09/10/23 20:00 11/28/23 07:51 Labs: Laboratory Results - last 48 hr 11/26/23 11/26/23 11/26/23 12:41 17:45 20:59 Creatinine Estim Creat Clear Calc Estimated GFR POC Glucose 110 133 H 188 H 11/27/23 11/27/23 11/27/23 08:36 12:51 17:44 Creatinine Estim Creat Clear Calc Estimated GFR POC Glucose 155 H 181 H 102 11/27/23 11/28/23 11/28/23 20:56 07:51 08:29 Creatinine 0.97 Estim Creat Clear Calc 95.1 Estimated GFR > 60 POC Glucose 150 H 121 H Imaging Radiology Impressions: ITS Impressions Brain MRI 09/19/23 20:33 IMPRESSION: 1. No demonstrated acute intracranial abnormalities. 2. Chronic mild to moderate nonspecific white matter changes, most notably in the deep white matter of the right frontal lobe. Mild to moderate generalized cerebral volume loss. Medications Medications Current Medications Acetaminophen (Acetaminophen 325 Mg Tablet) 650 mg PO Q6H PRN PRN Reason: Headache/Pain Mild Scale (1-3) Last Admin: 10/13/23 09:39 Dose: 650 mg Al Hydroxide/Mg Hydroxide (Magnesium Hydrox/Alum Hydrox 30 Ml Oral.Susp) 30 ml PO Q6H PRN PRN Reason: Heartburn/Nausea Last Admin: 11/27/23 10:48 Dose: 30 ml Aripiprazole (Aripiprazole 10 Mg Tablet) 10 mg PO BEDTIME [facility] Last Admin: 11/27/23 22:06 Dose: 10 mg Benztropine Mesylate (Benztropine Mesylate 0.5 Mg Tablet) 0.5 mg PO TID PRN PRN Reason: Extrapyramidal Effects Glucose (Glucose Gel 15 Gm Gel..Gram.) 15 gm PO Q15M PRN; Protocol PRN Reason: per Hypoglycemia Standing Ord. Hydroxyzine HCl (Hydroxyzine Hcl 25 Mg Tablet) 25 mg PO Q6H PRN PRN Reason: Anxiety Last Admin: 10/27/23 20:38 Dose: 25 mg Dextrose (D10) 250 mls @ 750 mls/hr IV Q15M PRN; Protocol PRN Reason: per Hypoglycemia Standing Ord. Insulin Glargine (Insulin Glargine,Hum.Rec.Anlog 100 Unit/Ml 10 Ml Vial) 20 unit SUBCUT BEDTIME [facility] Last Admin: 11/27/23 22:05 Dose: 20 unit Insulin Human Lispro (Insulin Lispro 100 Unit/Ml 3 Ml Vial) 0 unit SUBCUT QIDACHS [facility]; Protocol Last Admin: 11/28/23 09:00 Dose: Not Given Lamotrigine (Lamotrigine 100 Mg Tablet) 150 mg PO BEDTIME [facility] Last Admin: 11/27/23 22:06 Dose: 150 mg Levothyroxine Sodium (Levothyroxine Sodium 150 Mcg Tablet) 150 mcg PO DAILY@0800 [facility] Last Admin: 11/28/23 08:55 Dose: 150 mcg Magnesium Hydroxide (Milk Of Magnesia 30 Ml Oral.Susp) 30 ml PO DAILY PRN PRN Reason: Constipation Memantine (Memantine Hcl 5 Mg Tablet) 5 mg PO BID [facility] Last Admin: 11/28/23 08:55 Dose: 5 mg Metformin HCl (Metformin Hcl Er 500 Mg Tab.Er.24h) 1,000 mg PO DAILY@1700 [facility] Last Admin: 11/27/23 17:46 Dose: 1,000 mg Nicotine Polacrilex (Nicotine Polacrilex 2 Mg Gum) 4 mg BUCCAL Q2H PRN PRN Reason: Nicotine Cravings Ondansetron HCl (Ondansetron Odt 8 Mg Tab.Rapdis) 8 mg TRANSLINGU Q8H PRN PRN Reason: Nausea and Vomiting Last Admin: 11/27/23 10:48 Dose: 8 mg Sertraline HCl (Sertraline Hcl 100 Mg Tablet) 100 mg PO DAILY [facility] Last Admin: 11/28/23 08:55 Dose: 100 mg Simethicone (Simethicone 80 Mg Tab.Chew) 80 mg PO QIDWMHS PRN PRN Reason: Gas Trazodone HCl (Trazodone Hcl 50 Mg Tablet) 50 mg PO BEDTIME MRX1 PRN PRN Reason: Insomnia Last Admin: 11/10/23 20:29 Dose: 50 mg Allergies Allergies Allergy/AdvReac Type Severity Reaction Status Date / Time amoxicillin [AMOXICILLIN] Allergy Mild VOMITING/ABD Verified 09/10/23 19:44 PAIN Assessment & Plan Assessment & Plan (1) Schizoaffective disorder: Status: Acute Code(s): F25.9 - Schizoaffective disorder, unspecified (2) Hypothyroidism: Status: Acute Code(s): E03.9 - Hypothyroidism, unspecified (3) Type 2 diabetes mellitus: Status: Acute Code(s): E11.9 - Type 2 diabetes mellitus without complications (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 Plan: CV 15 minute safety checks Continue home medications: Haldol 10mg PO daily Synthroid 200mcg PO daily Obtain labs; A1C/POCs Obtain collateral from sister Obtain records from last hospitalization. MOCA Referral for [facility] services if patient is agreeable. encourage medication compliance;consider VARGAS discharge planning 09/11: Elevated fasting blood sugar elevated hemoglobin A1c 9.2 med consult placed put in point of care needed will start metformin Would benefit from clarity over recent hospitalization what this were done details regarding treatment continue Haldol unclear if patient has Healthcare proxy his Herman was low slowed cognition with poor details in depth at times during blankly regarding making judgments Unclear if any of this relates to past coma or 2 hypothyroidism. He does seem more impaired than when last seen unclear when last imaging was. Continue Haldol sitter neuro indira involvement regarding diagnostic picture. Patient does remain paranoid blunted suspicious apathetic. He might benefit from longer-term placement if available and appropriate at a later time involved [facility] involvement would be quite helpful 09/12: cont haldol get records ? hcp ? start antidep unclear hx 09/13: Keeping to self. More talkative today. Pt concerned he will be transferred to [facility]. Pt stated, The paper I signed yesterday. Are you going to send me back to the last hospital? That place was horrible . Pt was educated he signed a release of information with Dr. Gonzalez to obtain records from [facility]. Pt was given a copy of the release he signed. Despite this, pt continues to be anxious about being transferred. Pt denies SI/HI/VH/AH. 09/14: Keeping to self. active on unit. showered. Pt reports feeling alright today; pt reports he is worried about where I'm going to go . Pt continues concerned he will be transferred to [facility]. Pt denies SI/HI/VH/AH. 09/15:Pt reports feeling alright today; pt continues to report he is worried about where I'm going to go . Responding with brief responses. Guarded. Observed standing in one place for a long period of time. Appears confused. Pt denies SI/HI/VH/AH. T/W spoke to patient's sister, Ros, with patients verbal consent. Ros reports concerns regarding patients ability to make decisions regarding his mental and physical health. She plans on contacting legal advice on obtaining guardianship of patient. 09/16:Patient's presents similar to yesterday's presentation. Responding with brief responses. Guarded. Observed standing in one place for a long period of time, when asked what he is doing, pt stated, I don't know . Pt reports he plans on contacting his sister today and try to convince her for me to stay there . Pt denies SI/HI/VH/AH. Continue current tx plan. 09/17: brief responses. Guarded. 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 Pt denies SI/HI/VH/AH. T/W and Dr. Gonzalez spoke to patient's sister, Ros. Ros stated being [facility] HCP and plans on finding document. She plans on coming to the hospital on Saturday to be present for [facility] intake. 09/21: No changes 09/22:Patient flat apathetic difficult insight and judgment his sister is healthcare proxy if needed patient is accepting medical treatment Referral to [facility] 09/23:Considers starting Haldol Decanoate patient is agreeable superficially difficulty with exec fx was seen [facility] 09/24:Pt seen in f/u mood flat dysphoric difficulty engaging in conversation preoccupied with thought he wont be living with family thing slowed apathetic no clear response with namenda ? some improvement inc lamictal start low dose sertraline inc lamictal ck tsh 09/25:Start Abilify as augmentation with Haldol see if can be more stimulating regarding depressed mood apathetic limited engagement sertraline 50 mg Lamictal 25 b.i.d. referral to [facility] which would have structure unclear if patient can engage with this he remains quite depressed has delusional beliefs regarding housing and that things have been done he has repeatedly tried to reach out to his sister denies active SI needs much help dressing talking with others encouragement to eat severe thought blocking Abilify might be more stimulating than Haldol which can be more dulling 09/26:Abilify started sertraline Lamictal encouraged step-down to [facility] encourage reality orientation denies active SI 09/27: Continue current regimen and plans 09/28: Continue current regimen and plans. 09/29: Referral to [facility] increase Abilify to 5 mg daily eventually try and taper Haldol sertraline 50 mg daily 09/30:Increase Abilify to 10 mg lower Haldol to 7 mg continue sertraline and Lamictal 10/01:Abilify increased to 10 mg continue to taper Haldol sertraline 100 mg Lamictal increased to 75 mg patient apathetic withdrawn difficulty with placement some paranoia continues difficulty with decision making at times. Not physically aggressive internally preoccupied seems somewhat improved with Abilify sertraline Continue discharge planning 10/02:Patient somewhat blunted flat slowed thinking during the day times staring. Change Abilify to 10 mg at bedtime. Scheduled Haldol will lowered to 2.5 mg Continue sertraline 100 mg Namenda 5 b.i.d. 10/03:Haldol discontinued modafinil low-dose monitor for psychosis or agitation continue discharge planning 10/06: May need to firm healthcare proxy calls have been placed to sister to try to help in discharge planning. Referrals made. Patient cooperative with care 10/07:Pharmacy ordering Abilify maintain a increase modafinil 100 mg patient remains flat passive depressed some improvement noted no current paranoia noted continue discharge planning no current safe discharge plan 10/08: Increase Lamictal 100 mg Abilify Maintena 400 mg hold modafinil unclear if was overly stimulating patient continues to present internally preoccupied. 10/09:Healthcare proxy invoked discharge planning continue Lamictal Abilify pending maintain a 10/10:Healthcare proxy invoked new CV signed discharge planning. 10/11 keep same treatment 10/12 keep same treatment 10/13: Continue plan of care Lamictal Abilify discharge planning sertraline 10/14: stable. continue current mgmt. 10/15: stable. continue current mgmt. 10/16: stable presentation. continue current mgmt. 10/17: as for yesterday. 10/18: no changes. 10/19: stabel, safe. no change. 10/20: no change in presentation. calm, cooperative. active on unit, social with select peers, attending groups. Pt reports feeling alright . denies SI/HI/VH/AH. Social work waiting to hear from possible placement location. Continue current tx plan. 10/21: continue current tx plan. awaiting placement. 10/22: calm, cooperative. active on unit, social with select peers, attending groups. Pt reports feeling good ; pt stated, I'm waiting to see where I'm going . denies SI/HI/VH/AH. Showered with encouragement. 10/23: continue current tx plan. 10/24: calm, cooperative. active on unit, social with select peers, attending groups. Pt reports feeling good ; pt stated, I just want a place to live . 10/25- likely at baseline for him- CTP 10/26 CTP likely needs placement 10/27: continue current tx plan. awaiting placement. 10/28: Similar to yesterday. No change in presentation. 10/29: Pt reports feeling good ;pt stated, just waiting for a place to live . denies any issues at this time. 10/30: calm, cooperative. active on unit, social with select peers, attending groups. Pt reports feeling worried about where I am going to live . denies any issues at this time. 10/21: no change in presentation. continue current tx plan. 11/01: continue current management and treatment plan. 11/02: Continue current management and treatment plan. 11/03: Continue current management and treatment plan. 11/04: Active on unit. calm, cooperative. social with select peers, attending groups. denies any issues at this time. He reports sleeping well. Pt reports he would be interested in applying for [facility] services; social work aware. 11/05: Active on unit. calm, cooperative. social with select peers, attending groups. denies any issues at this time. Pt reports feeling okay ; he reports anxiety regarding placement. Continue current tx plan. 11/06: [facility] referral has appropriate concerns re living stuation cont abilify lamictal 11/07: Pt cooperative with care d/c planning working with sw cont d/c planning cont lamictal abilify 11/11: Patient increasingly despairing aware of no clear discharge plan periods needs cuing for much functioning limited social engaged needs help regarding diabetes and medication compliance reportedly had been rejected by multiple rest homes patient not threatening intermittently hopeless helpless very limited family contact at this time 11/12: pt flat depressed hopeless helpless unable to fx without structure 11/15 continue tx. 11/16 continue tx. 11/17: Continue plan of care referral to [facility] TSH low will decrease levothyroxine 11/18: Pt flat dysphor ic inc hopeless helpless lamictal 150 hs dec levothyroxine 150 d/c planning cont 11/20: Keeping to self. Laying in bed most of morning. Pt reports feeling depressed because of the situation . Continues to deny SI/HI/VH/AH. Pt is hoping for housing soon. 11/21: Active on unit, social with peers. Pt continues to report feeling depressed because of the situation . denies SI/HI/VH/AH. Denies any issues at this time. 11/22: Continue current regimen and plans 11/23: Continue current regimen and plans 11/24: Denies any issues at this time. Visited with his sister, Ros. Pt reports visit went well. He reports feeling alright today. Waiting on placement. 11/25: Pt reports feeling so-so today; he reports feeling impatient regarding placement. showered with staff encouragement. 11/26: continue current tx plan. 11/27: Continue current treatment plan. Waiting on placement. Reason for continued inpatient stay Substantial Risk for: other Time Spent With Patient Time: Total time managing care of this patient today _20___ minutes.
[2023-11-28 12:35] LABS: Glucose, Whole Blood 149 mg/dL (60-115)
[2023-11-28 17:33] LABS: Glucose, Whole Blood 201 mg/dL (60-115)
[2023-11-28] MEDS: metFORMIN HCl ER 500 MG TAB.ER.24H 1000 MG PO (17:51)
[2023-11-28] MEDS: Insulin Lispro 100 UNIT/ML 3 ML VIAL SUBCUT ×2 (18:01→21:26)
[2023-11-28 20:00] VITALS: BP 129/65; PULSE 81; RESP 16; TEMP 36.6; O2SAT 99
[2023-11-28 21:12] LABS: Glucose, Whole Blood 182 mg/dL (60-115)
[2023-11-28] MEDS: Insulin Glargine,Hum.rec.anlog 100 UNIT/ML 10 ML VIAL 20 UNIT SUBCUT (21:26)
[2023-11-28] MEDS: lamoTRIgine 100 MG TABLET 150 MG PO (21:27)
[2023-11-28] MEDS: ARIPiprazole 10 MG TABLET PO (21:27)
[2023-11-29 08:36] LABS: Glucose, Whole Blood 121 mg/dL (60-115)
[2023-11-29 08:40] VITALS: BP 128/76; PULSE 83; RESP 18; TEMP 36.4; O2SAT 96
[2023-11-29] MEDS: Levothyroxine Sodium 150 MCG TABLET PO (08:41)
[2023-11-29] MEDS: Memantine HCl 5 MG TABLET PO ×2 (08:42→20:26)
[2023-11-29] MEDS: Sertraline HCL 100 MG TABLET PO (08:42)
--- NOTE | 2023-11-29 09:07 | P.PNPSI_ITS ---
Subjective Subjective Date of Service: 11/29/23 Reason For Visit: paranoia cognitive impairment Subjective Notes: Conditional Voluntary Interim History: Reviewed with Dr. Gonzalez. Similar to days prior. Active on unit, social with peers. Denies any issues at this time. Pt reports feeling okay today; waiting on placement. Medication Compliance: Yes Side effects from medications: No Attending Groups: Yes Review of Systems Constitutional: Reports as per HPI Eyes: Reports as per HPI Reports as per HPI Cardiovascular: Reports as per HPI Respiratory: Reports as per HPI Gastrointestinal: Reports as per HPI Genitourinary: Reports as per HPI Musculoskeletal: Reports as per HPI Skin/Breast: Reports as per HPI Reports as per HPI Psychiatric: Reports as per HPI Endocrine: Reports as per HPI Hematologic/Lymphatic: Reports as per HPI Allergic/Immunologic: Reports as per HPI Mental Status Exam Mental Status Exam Patient Appearance: Disheveled Patient Orientation: Person, Place and Situation Level of Consciousness: Awake Patient Behavior: Appropriate and Cooperative Mood Description: Calm, Blunted and Flat Affect Description: Blunted Patient Cognition Impaired: Yes Ability to Follow Directions: Fair Speech Pattern: Clear and Soft-Spoken 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: Redeye Gunner Impaired Diagnostics Vital Signs (24Hr): Vital Signs - 24 hr 11/28/23 20:00 11/29/23 08:40 Temperature 98 F 97.6 F Pulse Rate 81 83 Respiratory Rate 16 18 Blood Pressure 129/65 128/76 Pulse Oximetry 99 96 Oxygen Delivery Method Room Air Room Air BMI result Body Mass Index 31.9 Labs 09/10/23 20:00 11/28/23 07:51 Labs: Laboratory Results - last 48 hr 11/27/23 11/27/23 11/27/23 12:51 17:44 20:56 Creatinine Estim Creat Clear Calc Estimated GFR POC Glucose 181 H 102 150 H 11/28/23 11/28/23 11/28/23 07:51 08:29 12:26 Creatinine 0.97 Estim Creat Clear Calc 95.1 Estimated GFR > 60 POC Glucose 121 H 149 H 11/28/23 11/28/23 11/29/23 17:25 21:05 08:28 Creatinine Estim Creat Clear Calc Estimated GFR POC Glucose 201 H 182 H 121 H Imaging Radiology Impressions: ITS Impressions Brain MRI 09/19/23 20:33 IMPRESSION: 1. No demonstrated acute intracranial abnormalities. 2. Chronic mild to moderate nonspecific white matter changes, most notably in the deep white matter of the right frontal lobe. Mild to moderate generalized cerebral volume loss. Medications Medications Current Medications Acetaminophen (Acetaminophen 325 Mg Tablet) 650 mg PO Q6H PRN PRN Reason: Headache/Pain Mild Scale (1-3) Last Admin: 10/13/23 09:39 Dose: 650 mg Al Hydroxide/Mg Hydroxide (Magnesium Hydrox/Alum Hydrox 30 Ml Oral.Susp) 30 ml PO Q6H PRN PRN Reason: Heartburn/Nausea Last Admin: 11/27/23 10:48 Dose: 30 ml Aripiprazole (Aripiprazole 10 Mg Tablet) 10 mg PO BEDTIME [facility] Last Admin: 11/28/23 21:27 Dose: 10 mg Benztropine Mesylate (Benztropine Mesylate 0.5 Mg Tablet) 0.5 mg PO TID PRN PRN Reason: Extrapyramidal Effects Glucose (Glucose Gel 15 Gm Gel..Gram.) 15 gm PO Q15M PRN; Protocol PRN Reason: per Hypoglycemia Standing Ord. Hydroxyzine HCl (Hydroxyzine Hcl 25 Mg Tablet) 25 mg PO Q6H PRN PRN Reason: Anxiety Last Admin: 10/27/23 20:38 Dose: 25 mg Dextrose (D10) 250 mls @ 750 mls/hr IV Q15M PRN; Protocol PRN Reason: per Hypoglycemia Standing Ord. Insulin Glargine (Insulin Glargine,Hum.Rec.Anlog 100 Unit/Ml 10 Ml Vial) 20 unit SUBCUT BEDTIME [facility] Last Admin: 11/28/23 21:26 Dose: 20 unit Insulin Human Lispro (Insulin Lispro 100 Unit/Ml 3 Ml Vial) 0 unit SUBCUT QIDACHS [facility]; Protocol Last Admin: 11/29/23 08:32 Dose: Not Given Lamotrigine (Lamotrigine 100 Mg Tablet) 150 mg PO BEDTIME [facility] Last Admin: 11/28/23 21:27 Dose: 150 mg Levothyroxine Sodium (Levothyroxine Sodium 150 Mcg Tablet) 150 mcg PO DAILY@0800 [facility] Last Admin: 11/29/23 08:41 Dose: 150 mcg Magnesium Hydroxide (Milk Of Magnesia 30 Ml Oral.Susp) 30 ml PO DAILY PRN PRN Reason: Constipation Memantine (Memantine Hcl 5 Mg Tablet) 5 mg PO BID [facility] Last Admin: 11/29/23 08:42 Dose: 5 mg Metformin HCl (Metformin Hcl Er 500 Mg Tab.Er.24h) 1,000 mg PO DAILY@1700 [facility] Last Admin: 11/28/23 17:51 Dose: 1,000 mg Nicotine Polacrilex (Nicotine Polacrilex 2 Mg Gum) 4 mg BUCCAL Q2H PRN PRN Reason: Nicotine Cravings Ondansetron HCl (Ondansetron Odt 8 Mg Tab.Rapdis) 8 mg TRANSLINGU Q8H PRN PRN Reason: Nausea and Vomiting Last Admin: 11/27/23 10:48 Dose: 8 mg Sertraline HCl (Sertraline Hcl 100 Mg Tablet) 100 mg PO DAILY [facility] Last Admin: 11/29/23 08:42 Dose: 100 mg Simethicone (Simethicone 80 Mg Tab.Chew) 80 mg PO QIDWMHS PRN PRN Reason: Gas Trazodone HCl (Trazodone Hcl 50 Mg Tablet) 50 mg PO BEDTIME MRX1 PRN PRN Reason: Insomnia Last Admin: 11/10/23 20:29 Dose: 50 mg Allergies Allergies Allergy/AdvReac Type Severity Reaction Status Date / Time amoxicillin [AMOXICILLIN] Allergy Mild VOMITING/ABD Verified 09/10/23 19:44 PAIN Assessment & Plan Assessment & Plan (1) Schizoaffective disorder: Status: Acute Code(s): F25.9 - Schizoaffective disorder, unspecified (2) Hypothyroidism: Status: Acute Code(s): E03.9 - Hypothyroidism, unspecified (3) Type 2 diabetes mellitus: Status: Acute Code(s): E11.9 - Type 2 diabetes mellitus without complications (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 Plan: CV 15 minute safety checks Continue home medications: Haldol 10mg PO daily Synthroid 200mcg PO daily Obtain labs; A1C/POCs Obtain collateral from sister Obtain records from last hospitalization. MOCA Referral for [facility] services if patient is agreeable. encourage medication compliance;consider VARGAS discharge planning 09/11: Elevated fasting blood sugar elevated hemoglobin A1c 9.2 med consult placed put in point of care needed will start metformin Would benefit from clarity over recent hospitalization what this were done details regarding treatment continue Haldol unclear if patient has Healthcare proxy his [place] was low slowed cognition with poor details in depth at times during blankly regarding making judgments Unclear if any of this relates to past coma or 2 hypothyroidism. He does seem more impaired than when last seen unclear when last imaging was. Continue Haldol sitter neuro indira involvement regarding diagnostic picture. Patient does remain paranoid blunted suspicious apathetic. He might benefit from longer- term placement if available and appropriate at a later time involved [facility] involvement would be quite helpful 09/12: cont haldol get records ? hcp ? start antidep unclear hx 09/13: Keeping to self. More talkative today. Pt concerned he will be transferred to [facility]. Pt stated, The paper I signed yesterday. Are you going to send me back to the last hospital? That place was horrible . Pt was educated he signed a release of information with Dr. Gonzalez to obtain records from [facility]. Pt was given a copy of the release he signed. Despite this, pt continues to be anxious about being transferred. Pt denies SI/HI/VH/AH. 09/14: Keeping to self. active on unit. showered. Pt reports feeling alright today; pt reports he is worried about where I'm going to go . Pt continues concerned he will be transferred to [facility]. Pt denies SI/HI/VH/AH. 09/15:Pt reports feeling alright today; pt continues to report he is worried about where I'm going to go . Responding with brief responses. Guarded. Observed standing in one place for a long period of time. Appears confused. Pt denies SI/HI/VH/AH. T/W spoke to patient's sister, Ros, with patients verbal consent. Ros reports concerns regarding patients ability to make decisions regarding his mental and physical health. She plans on contacting legal advice on obtaining guardianship of patient. 07/16:Patient's presents similar to yesterday's presentation. Responding with brief responses. Guarded. Observed standing in one place for a long period of time, when asked what he is doing, pt stated, I don't know . Pt reports he plans on contacting his sister today and try to convince her for me to stay there . Pt denies SI/HI/VH/AH. Continue current tx plan. 09/17: brief responses. Guarded. 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 Pt denies SI/HI/VH/AH. T/W and Dr. Gonzalez spoke to patient's sister, Ros. Ros stated being [facility] HCP and plans on finding document. She plans on coming to the hospital on Saturday to be present for [facility] intake. 09/21: No changes 09/22:Patient flat apathetic difficult insight and judgment his sister is healthcare proxy if needed patient is accepting medical treatment Referral to [facility] 09/23:Considers starting Haldol Decanoate patient is agreeable superficially difficulty with exec fx was seen [facility] 09/24:Pt seen in f/u mood flat dysphoric difficulty engaging in conversation preoccupied with thought he wont be living with family thing slowed apathetic no clear response with namenda ? some improvement inc lamictal start low dose sertraline inc lamictal ck tsh 09/25:Start Abilify as augmentation with Haldol see if can be more stimulating regarding depressed mood apathetic limited engagement sertraline 50 mg Lamictal 25 b.i.d. referral to [facility] which would have structure unclear if patient can engage with this he remains quite depressed has delusional beliefs regarding housing and that things have been done he has repeatedly tried to reach out to his sister denies active SI needs much help dressing talking with others encouragement to eat severe thought blocking Abilify might be more stimulating than Haldol which can be more dulling 09/26:Abilify started sertraline Lamictal encouraged step-down to [facility] encourage reality orientation denies active SI 09/27: Continue current regimen and plans 09/28: Continue current regimen and plans. 09/29: Referral to [facility] increase Abilify to 5 mg daily eventually try and taper Haldol sertraline 50 mg daily 09/30:Increase Abilify to 10 mg lower Haldol to 7 mg continue sertraline and Lamictal 10/01:Abilify increased to 10 mg continue to taper Haldol sertraline 100 mg Lamictal increased to 75 mg patient apathetic withdrawn difficulty with placement some paranoia continues difficulty with decision making at times. Not physically aggressive internally preoccupied seems somewhat improved with Abilify sertraline Continue discharge planning 10/02:Patient somewhat blunted flat slowed thinking during the day times staring. Change Abilify to 10 mg at bedtime. Scheduled Haldol will lowered to 2.5 mg Continue sertraline 100 mg Namenda 5 b.i.d. 10/03:Haldol discontinued modafinil low-dose monitor for psychosis or agitation continue discharge planning 10/06: May need to firm healthcare proxy calls have been placed to sister to try to help in discharge planning. Referrals made. Patient cooperative with care 10/07:Pharmacy ordering Abilify maintain a increase modafinil 100 mg patient remains flat passive depressed some improvement noted no current paranoia noted continue discharge planning no current safe discharge plan 10/08: Increase Lamictal 100 mg Abilify Maintena 400 mg hold modafinil unclear if was overly stimulating patient continues to present internally preoccupied. 10/09:Healthcare proxy invoked discharge planning continue Lamictal Abilify pending maintain a 10/10:Healthcare proxy invoked new CV signed discharge planning. 10/11 keep same treatment 10/12 keep same treatment 10/13: Continue plan of care Lamictal Abilify discharge planning sertraline 10/14: stable. continue current mgmt. 10/15: stable. continue current mgmt. 10/16: stable presentation. continue current mgmt. 10/17: as for yesterday. 10/18: no changes. 10/19: stabel, safe. no change. 10/20: no change in presentation. calm, cooperative. active on unit, social with select peers, attending groups. Pt reports feeling alright . denies SI/HI/VH/AH. Social work waiting to hear from possible placement location. Continue current tx plan. 10/21: continue current tx plan. awaiting placement. 10/22: calm, cooperative. active on unit, social with select peers, attending groups. Pt reports feeling good ; pt stated, I'm waiting to see where I'm going . denies SI/HI/VH/AH. Showered with encouragement. 10/23: continue current tx plan. 10/24: calm, cooperative. active on unit, social with select peers, attending groups. Pt reports feeling good ; pt stated, I just want a place to live . 10/25- likely at baseline for him- CTP 10/26 CTP likely needs placement 10/27: continue current tx plan. awaiting placement. 10/28: Similar to yesterday. No change in presentation. 10/29: Pt reports feeling good ;pt stated, just waiting for a place to live . denies any issues at this time. 10/30: calm, cooperative. active on unit, social with select peers, attending groups. Pt reports feeling worried about where I am going to live . denies any issues at this time. 10/21: no change in presentation. continue current tx plan. 11/01: continue current management and treatment plan. 11/02: Continue current management and treatment plan. 11/03: Continue current management and treatment plan. 11/04: Active on unit. calm, cooperative. social with select peers, attending groups. denies any issues at this time. He reports sleeping well. Pt reports he would be interested in applying for [facility] services; social work aware. 11/05: Active on unit. calm, cooperative. social with select peers, attending groups. denies any issues at this time. Pt reports feeling okay ; he reports anxiety regarding placement. Continue current tx plan. 11/06: DM referral has appropriate concerns re living stuation cont abilify lamictal 11/07: Pt cooperative with care d/c planning working with sw cont d/c planning cont lamictal abilify 11/11: Patient increasingly despairing aware of no clear discharge plan periods needs cuing for much functioning limited social engaged needs help regarding diabetes and medication compliance reportedly had been rejected by multiple rest homes patient not threatening intermittently hopeless helpless very limited family contact at this time 11/12: pt flat depressed hopeless helpless unable to fx without structure 11/15 continue tx. 11/16 continue tx. 11/17: Continue plan of care referral to [facility] TSH low will decrease levothyroxine 11/18: Pt flat dysphor ic inc hopeless helpless lamictal 150 hs dec levothyroxine 150 d/c planning cont 11/20: Keeping to self. Laying in bed most of morning. Pt reports feeling depressed because of the situation . Continues to deny SI/HI/VH/AH. Pt is hoping for housing soon. 11/21: Active on unit, social with peers. Pt continues to report feeling depressed because of the situation . denies SI/HI/VH/AH. Denies any issues at this time. 11/22: Continue current regimen and plans 11/23: Continue current regimen and plans 11/24: Denies any issues at this time. Visited with his sister, Ros. Pt reports visit went well. He reports feeling alright today. Waiting on placement. 11/25: Pt reports feeling so-so today; he reports feeling impatient regarding placement. showered with staff encouragement. 11/26: continue current tx plan. 11/27: Continue current treatment plan. Waiting on placement. 11/28: Similar to days prior. waiting on placement. continue current tx plan. Reason for continued inpatient stay Substantial Risk for: other Time Spent With Patient Time: Total time managing care of this patient today _20___ minutes.
[2023-11-29 12:53] LABS: Glucose, Whole Blood 117 mg/dL (60-115)
[2023-11-29 17:36] LABS: Glucose, Whole Blood 136 mg/dL (60-115)
[2023-11-29] MEDS: metFORMIN HCl ER 500 MG TAB.ER.24H 1000 MG PO (17:36)
[2023-11-29 19:58] VITALS: BP 144/80; PULSE 96; RESP 18; TEMP 36.9; O2SAT 96
[2023-11-29 20:18] LABS: Glucose, Whole Blood 203 mg/dL (60-115)
[2023-11-29] MEDS: Insulin Glargine,Hum.rec.anlog 100 UNIT/ML 10 ML VIAL 20 UNIT SUBCUT (20:23)
[2023-11-29] MEDS: Insulin Lispro 100 UNIT/ML 3 ML VIAL SUBCUT (20:24)
[2023-11-29] MEDS: ARIPiprazole 10 MG TABLET PO (20:26)
[2023-11-29] MEDS: lamoTRIgine 100 MG TABLET 150 MG PO (20:26)
[2023-11-30 07:57] VITALS: BP 118/68; PULSE 80; RESP 16; TEMP 36.8; O2SAT 98
[2023-11-30 08:53] LABS: Glucose, Whole Blood 109 mg/dL (60-115)
[2023-11-30] MEDS: Memantine HCl 5 MG TABLET PO ×2 (09:22→20:53)
[2023-11-30] MEDS: Levothyroxine Sodium 150 MCG TABLET PO (09:22)
[2023-11-30] MEDS: Sertraline HCL 100 MG TABLET PO (09:22)
--- NOTE | 2023-11-30 10:11 | HO.PSYCHPN ---
Subjective Subjective Date of Service: 11/30/23 Reason For Visit: paranoia cognitive impairment Subjective Notes: Conditional Voluntary Interim History: Reviewed with Dr. Gonzalez. Similar to days prior. Denies any issues at this time. waiting on placement. Medication Compliance: Yes Side effects from medications: No Attending Groups: Yes Review of Systems Constitutional: Reports as per HPI Eyes: Reports as per HPI Reports as per HPI Cardiovascular: Reports as per HPI Respiratory: Reports as per HPI Gastrointestinal: Reports as per HPI Genitourinary: Reports as per HPI Musculoskeletal: Reports as per HPI Skin/Breast: Reports as per HPI Reports as per HPI Psychiatric: Reports as per HPI Endocrine: Reports as per HPI Hematologic/Lymphatic: Reports as per HPI Allergic/Immunologic: Reports as per HPI Mental Status Exam Mental Status Exam Patient Appearance: Disheveled Patient Orientation: Person, Place and Situation Level of Consciousness: Awake Patient Behavior: Appropriate and Cooperative Mood Description: Calm, Blunted and Flat Affect Description: Blunted Patient Cognition Impaired: Yes Ability to Follow Directions: Fair Speech Pattern: Clear and Soft-Spoken 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: Intermediate Impaired Diagnostics Vital Signs (24Hr): Vital Signs - 24 hr 11/29/23 19:58 11/30/23 07:57 Temperature 98.5 F 98.2 F Pulse Rate 96 80 Respiratory Rate 18 16 Blood Pressure 144/80 H 118/68 Pulse Oximetry 96 98 Oxygen Delivery Method Room Air Room Air BMI result Body Mass Index 31.9 Labs 09/10/23 20:00 11/28/23 07:51 Labs: Laboratory Results - last 48 hr 11/28/23 11/28/23 11/28/23 12:26 17:25 21:05 POC Glucose 149 H 201 H 182 H 11/29/23 11/29/23 11/29/23 08:28 12:45 17:32 POC Glucose 121 H 117 H 136 H 11/29/23 11/30/23 20:14 08:38 POC Glucose 203 H 109 Imaging Radiology Impressions: ITS Impressions Brain MRI 09/19/23 20:33 IMPRESSION: 1. No demonstrated acute intracranial abnormalities. 2. Chronic mild to moderate nonspecific white matter changes, most notably in the deep white matter of the right frontal lobe. Mild to moderate generalized cerebral volume loss. Medications Medications Current Medications Acetaminophen (Acetaminophen 325 Mg Tablet) 650 mg PO Q6H PRN PRN Reason: Headache/Pain Mild Scale (1-3) Last Admin: 08/11/24 09:39 Dose: 650 mg Al Hydroxide/Mg Hydroxide (Magnesium Hydrox/Alum Hydrox 30 Ml Oral.Susp) 30 ml PO Q6H PRN PRN Reason: Heartburn/Nausea Last Admin: 11/27/23 10:48 Dose: 30 ml Aripiprazole (Aripiprazole 10 Mg Tablet) 10 mg PO BEDTIME [facility] Last Admin: 11/29/23 20:26 Dose: 10 mg Benztropine Mesylate (Benztropine Mesylate 0.5 Mg Tablet) 0.5 mg PO TID PRN PRN Reason: Extrapyramidal Effects Glucose (Glucose Gel 15 Gm Gel..Gram.) 15 gm PO Q15M PRN; Protocol PRN Reason: per Hypoglycemia Standing Ord. Hydroxyzine HCl (Hydroxyzine Hcl 25 Mg Tablet) 25 mg PO Q6H PRN PRN Reason: Anxiety Last Admin: 10/27/23 20:38 Dose: 25 mg Dextrose (D10) 250 mls @ 750 mls/hr IV Q15M PRN; Protocol PRN Reason: per Hypoglycemia Standing Ord. Insulin Glargine (Insulin Glargine,Hum.Rec.Anlog 100 Unit/Ml 10 Ml Vial) 20 unit SUBCUT BEDTIME [facility] Last Admin: 11/29/23 20:23 Dose: 20 unit Insulin Human Lispro (Insulin Lispro 100 Unit/Ml 3 Ml Vial) 0 unit SUBCUT QIDACHS [facility]; Protocol Last Admin: 11/30/23 09:21 Dose: Not Given Lamotrigine (Lamotrigine 100 Mg Tablet) 150 mg PO BEDTIME [facility] Last Admin: 11/29/23 20:26 Dose: 150 mg Levothyroxine Sodium (Levothyroxine Sodium 150 Mcg Tablet) 150 mcg PO DAILY@0800 [facility] Last Admin: 11/30/23 09:22 Dose: 150 mcg Magnesium Hydroxide (Milk Of Magnesia 30 Ml Oral.Susp) 30 ml PO DAILY PRN PRN Reason: Constipation Memantine (Memantine Hcl 5 Mg Tablet) 5 mg PO BID [facility] Last Admin: 11/30/23 09:22 Dose: 5 mg Metformin HCl (Metformin Hcl Er 500 Mg Tab.Er.24h) 1,000 mg PO DAILY@1700 [facility] Last Admin: 11/29/23 17:36 Dose: 1,000 mg Nicotine Polacrilex (Nicotine Polacrilex 2 Mg Gum) 4 mg BUCCAL Q2H PRN PRN Reason: Nicotine Cravings Ondansetron HCl (Ondansetron Odt 8 Mg Tab.Rapdis) 8 mg TRANSLINGU Q8H PRN PRN Reason: Nausea and Vomiting Last Admin: 11/27/23 10:48 Dose: 8 mg Sertraline HCl (Sertraline Hcl 100 Mg Tablet) 100 mg PO DAILY MANAS Last Admin: 11/30/23 09:22 Dose: 100 mg Simethicone (Simethicone 80 Mg Tab.Chew) 80 mg PO QIDWMHS PRN PRN Reason: Gas Trazodone HCl (Trazodone Hcl 50 Mg Tablet) 50 mg PO BEDTIME MRX1 PRN PRN Reason: Insomnia Last Admin: 11/10/23 20:29 Dose: 50 mg Allergies Allergies Allergy/AdvReac Type Severity Reaction Status Date / Time amoxicillin [AMOXICILLIN] Allergy Mild VOMITING/ABD Verified 09/10/23 19:44 PAIN Assessment & Plan Assessment & Plan (1) Schizoaffective disorder: Status: Acute Code(s): F25.9 - Schizoaffective disorder, unspecified (2) Hypothyroidism: Status: Acute Code(s): E03.9 - Hypothyroidism, unspecified (3) Type 2 diabetes mellitus: Status: Acute Code(s): E11.9 - Type 2 diabetes mellitus without complications (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 Plan: CV 15 minute safety checks Continue home medications: Haldol 10mg PO daily Synthroid 200mcg PO daily Obtain labs; A1C/POCs Obtain collateral from sister Obtain records from last hospitalization. MOCA Referral for DM services if patient is agreeable. encourage medication compliance;consider VARGAS discharge planning 09/11: Elevated fasting blood sugar elevated hemoglobin A1c 9.2 med consult placed put in point of care needed will start metformin Would benefit from clarity over recent hospitalization what this were done details regarding treatment continue Haldol unclear if patient has Healthcare proxy his [place] was low slowed cognition with poor details in depth at times during blankly regarding making judgments Unclear if any of this relates to past coma or 2 hypothyroidism. He does seem more impaired than when last seen unclear when last imaging was. Continue Haldol sitter neuro indira involvement regarding diagnostic picture. Patient does remain paranoid blunted suspicious apathetic. He might benefit from longer-term placement if available and appropriate at a later time involved [facility] involvement would be quite helpful 09/12: cont haldol get records ? hcp ? start antidep unclear hx 09/13: Keeping to self. More talkative today. Pt concerned he will be transferred to [facility]. Pt stated, The paper I signed yesterday. Are you going to send me back to the last hospital? That place was horrible . Pt was educated he signed a release of information with Dr. Gonzalez to obtain records from [facility]. Pt was given a copy of the release he signed. Despite this, pt continues to be anxious about being transferred. Pt denies SI/HI/VH/AH. 09/14: Keeping to self. active on unit. showered. Pt reports feeling alright today; pt reports he is worried about where I'm going to go . Pt continues concerned he will be transferred to [facility]. Pt denies SI/HI/VH/AH. 09/15:Pt reports feeling alright today; pt continues to report he is worried about where I'm going to go . Responding with brief responses. Guarded. Observed standing in one place for a long period of time. Appears confused. Pt denies SI/HI/VH/AH. T/W spoke to patient's sister, Ros, with patients verbal consent. Ros reports concerns regarding patients ability to make decisions regarding his mental and physical health. She plans on contacting legal advice on obtaining guardianship of patient. 09/16:Patient's presents similar to yesterday's presentation. Responding with brief responses. Guarded. Observed standing in one place for a long period of time, when asked what he is doing, pt stated, I don't know . Pt reports he plans on contacting his sister today and try to convince her for me to stay there . Pt denies SI/HI/VH/AH. Continue current tx plan. 09/17: brief responses. Guarded. 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 Pt denies SI/HI/VH/AH. T/W and Dr. Gonzalez spoke to patient's sister, Ros. Ros stated being [facility] HCP and plans on finding document. She plans on coming to the hospital on Saturday to be present for [facility] intake. 09/21: No changes 09/22:Patient flat apathetic difficult insight and judgment his sister is healthcare proxy if needed patient is accepting medical treatment Referral to [facility] 09/23:Considers starting Haldol Decanoate patient is agreeable superficially difficulty with exec fx was seen [facility] 09/24:Pt seen in f/u mood flat dysphoric difficulty engaging in conversation preoccupied with thought he wont be living with family thing slowed apathetic no clear response with namenda ? some improvement inc lamictal start low dose sertraline inc lamictal ck tsh 09/25:Start Abilify as augmentation with Haldol see if can be more stimulating regarding depressed mood apathetic limited engagement sertraline 50 mg Lamictal 25 b.i.d. referral to [facility] which would have structure unclear if patient can engage with this he remains quite depressed has delusional beliefs regarding housing and that things have been done he has repeatedly tried to reach out to his sister denies active SI needs much help dressing talking with others encouragement to eat severe thought blocking Abilify might be more stimulating than Haldol which can be more dulling 09/26:Abilify started sertraline Lamictal encouraged step-down to [facility] encourage reality orientation denies active SI 09/27: Continue current regimen and plans 09/28: Continue current regimen and plans. 09/29: Referral to [facility] increase Abilify to 5 mg daily eventually try and taper Haldol sertraline 50 mg daily 09/30:Increase Abilify to 10 mg lower Haldol to 7 mg continue sertraline and Lamictal 10/01:Abilify increased to 10 mg continue to taper Haldol sertraline 100 mg Lamictal increased to 75 mg patient apathetic withdrawn difficulty with placement some paranoia continues difficulty with decision making at times. Not physically aggressive internally preoccupied seems somewhat improved with Abilify sertraline Continue discharge planning 10/02:Patient somewhat blunted flat slowed thinking during the day times staring. Change Abilify to 10 mg at bedtime. Scheduled Haldol will lowered to 2.5 mg Continue sertraline 100 mg Namenda 5 b.i.d. 10/03:Haldol discontinued modafinil low-dose monitor for psychosis or agitation continue discharge planning 10/06: May need to firm healthcare proxy calls have been placed to sister to try to help in discharge planning. Referrals made. Patient cooperative with care 10/07:Pharmacy ordering Abilify maintain a increase modafinil 100 mg patient remains flat passive depressed some improvement noted no current paranoia noted continue discharge planning no current safe discharge plan 10/08: Increase Lamictal 100 mg Abilify Maintena 400 mg hold modafinil unclear if was overly stimulating patient continues to present internally preoccupied. 10/09:Healthcare proxy invoked discharge planning continue Lamictal Abilify pending maintain a 10/10:Healthcare proxy invoked new CV signed discharge planning. 10/11 keep same treatment 10/12 keep same treatment 10/13: Continue plan of care Lamictal Abilify discharge planning sertraline 10/14: stable. continue current mgmt. 10/15: stable. continue current mgmt. 10/16: stable presentation. continue current mgmt. 10/17: as for yesterday. 10/18: no changes. 10/19: stabel, safe. no change. 10/20: no change in presentation. calm, cooperative. active on unit, social with select peers, attending groups. Pt reports feeling alright . denies SI/HI/VH/AH. Social work waiting to hear from possible placement location. Continue current tx plan. 10/21: continue current tx plan. awaiting placement. 10/22: calm, cooperative. active on unit, social with select peers, attending groups. Pt reports feeling good ; pt stated, I'm waiting to see where I'm going . denies SI/HI/VH/AH. Showered with encouragement. 10/23: continue current tx plan. 10/24: calm, cooperative. active on unit, social with select peers, attending groups. Pt reports feeling good ; pt stated, I just want a place to live . 10/25- likely at baseline for him- CTP 10/26 CTP likely needs placement 10/27: continue current tx plan. awaiting placement. 10/28: Similar to yesterday. No change in presentation. 10/29: Pt reports feeling good ;pt stated, just waiting for a place to live . denies any issues at this time. 10/30: calm, cooperative. active on unit, social with select peers, attending groups. Pt reports feeling worried about where I am going to live . denies any issues at this time. 10/21: no change in presentation. continue current tx plan. 11/01: continue current management and treatment plan. 11/02: Continue current management and treatment plan. 11/03: Continue current management and treatment plan. 11/04: Active on unit. calm, cooperative. social with select peers, attending groups. denies any issues at this time. He reports sleeping well. Pt reports he would be interested in applying for [facility] services; social work aware. 11/05: Active on unit. calm, cooperative. social with select peers, attending groups. denies any issues at this time. Pt reports feeling okay ; he reports anxiety regarding placement. Continue current tx plan. 11/06: DM referral has appropriate concerns re living stuation cont abilify lamictal 11/07: Pt cooperative with care d/c planning working with cont d/c planning cont lamictal abilify 11/11: Patient increasingly despairing aware of no clear discharge plan periods needs cuing for much functioning limited social engaged needs help regarding diabetes and medication compliance reportedly had been rejected by multiple rest homes patient not threatening intermittently hopeless helpless very limited family contact at this time 11/12: pt flat depressed hopeless helpless unable to fx without structure 11/15 continue tx. 11/16 continue tx. 11/17: Continue plan of care referral to [facility] TSH low will decrease levothyroxine 11/18: Pt flat dysphor ic inc hopeless helpless lamictal 150 hs dec levothyroxine 150 d/c planning cont 11/20: Keeping to self. Laying in bed most of morning. Pt reports feeling depressed because of the situation . Continues to deny SI/HI/VH/AH. Pt is hoping for housing soon. 11/21: Active on unit, social with peers. Pt continues to report feeling depressed because of the situation . denies SI/HI/VH/AH. Denies any issues at this time. 11/22: Continue current regimen and plans 11/23: Continue current regimen and plans 11/24: Denies any issues at this time. Visited with his sister, Ros. Pt reports visit went well. He reports feeling alright today. Waiting on placement. 11/25: Pt reports feeling so-so today; he reports feeling impatient regarding placement. showered with staff encouragement. 11/26: continue current tx plan. 11/27: Continue current treatment plan. Waiting on placement. 11/28: Similar to days prior. waiting on placement. continue current tx plan. 11/29: Continue current treatment plan. Reason for continued inpatient stay Substantial Risk for: other Time Spent With Patient Time: Total time managing care of this patient today _20___ minutes.
[2023-11-30 12:22] LABS: Glucose, Whole Blood 262 mg/dL (60-115)
[2023-11-30] MEDS: Insulin Lispro 100 UNIT/ML 3 ML VIAL SUBCUT ×2 (12:47→20:54)
[2023-11-30 17:55] LABS: Glucose, Whole Blood 118 mg/dL (60-115)
[2023-11-30] MEDS: metFORMIN HCl ER 500 MG TAB.ER.24H 1000 MG PO (18:01)
[2023-11-30 19:35] VITALS: BP 133/71; PULSE 85; RESP 16; TEMP 37.1; O2SAT 98
[2023-11-30 20:06] LABS: Glucose, Whole Blood 238 mg/dL (60-115)
[2023-11-30] MEDS: lamoTRIgine 100 MG TABLET 150 MG PO (20:53)
[2023-11-30] MEDS: ARIPiprazole 10 MG TABLET PO (20:53)
[2023-11-30] MEDS: Insulin Glargine,Hum.rec.anlog 100 UNIT/ML 10 ML VIAL 20 UNIT SUBCUT (20:54)
[2023-12-01 08:57] LABS: Glucose, Whole Blood 102 mg/dL (60-115)
--- NOTE | 2023-12-01 09:01 | HO.PSYCHPN ---
Subjective Subjective Date of Service: 12/01/23 Reason For Visit: paranoia cognitive impairment Subjective Notes: Conditional Voluntary Interim History: Reviewed with Dr. Gonzalez. Similar to days prior. Denies any issues at this time. waiting on placement. Medication Compliance: Yes Side effects from medications: No Attending Groups: Yes Review of Systems Constitutional: Reports as per HPI Eyes: Reports as per HPI Reports as per HPI Cardiovascular: Reports as per HPI Respiratory: Reports as per HPI Gastrointestinal: Reports as per HPI Genitourinary: Reports as per HPI Musculoskeletal: Reports as per HPI Skin/Breast: Reports as per HPI Reports as per HPI Psychiatric: Reports as per HPI Endocrine: Reports as per HPI Hematologic/Lymphatic: Reports as per HPI Allergic/Immunologic: Reports as per HPI Mental Status Exam Mental Status Exam Patient Appearance: Disheveled Patient Orientation: Person, Place and Situation Level of Consciousness: Awake Patient Behavior: Appropriate and Cooperative Mood Description: Calm, Blunted and Flat Affect Description: Blunted Patient Cognition Impaired: Yes Ability to Follow Directions: Fair Speech Pattern: Clear and Soft-Spoken 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: Care Home Impaired Diagnostics Vital Signs (24Hr): Vital Signs - 24 hr 11/30/23 19:35 Temperature 98.7 F Pulse Rate 85 Respiratory Rate 16 Blood Pressure 133/71 Pulse Oximetry 98 Oxygen Delivery Method Room Air BMI result Body Mass Index 31.9 Labs 09/10/23 20:00 11/28/23 07:51 Labs: Laboratory Results - last 48 hr 11/29/23 11/29/23 11/29/23 12:45 17:32 20:14 POC Glucose 117 H 136 H 203 H 11/30/23 11/30/23 11/30/23 08:38 12:13 17:51 POC Glucose 109 262 H 118 H 11/30/23 12/01/23 20:00 08:50 POC Glucose 238 H 102 Imaging Radiology Impressions: ITS Impressions Brain MRI 09/19/23 20:33 IMPRESSION: 1. No demonstrated acute intracranial abnormalities. 2. Chronic mild to moderate nonspecific white matter changes, most notably in the deep white matter of the right frontal lobe. Mild to moderate generalized cerebral volume loss. Medications Medications Current Medications Acetaminophen (Acetaminophen 325 Mg Tablet) 650 mg PO Q6H PRN PRN Reason: Headache/Pain Mild Scale (1-3) Last Admin: 10/13/23 09:39 Dose: 650 mg Al Hydroxide/Mg Hydroxide (Magnesium Hydrox/Alum Hydrox 30 Ml Oral.Susp) 30 ml PO Q6H PRN PRN Reason: Heartburn/Nausea Last Admin: 11/27/23 10:48 Dose: 30 ml Aripiprazole (Aripiprazole 10 Mg Tablet) 10 mg PO BEDTIME [facility] Last Admin: 11/30/23 20:53 Dose: 10 mg Benztropine Mesylate (Benztropine Mesylate 0.5 Mg Tablet) 0.5 mg PO TID PRN PRN Reason: Extrapyramidal Effects Glucose (Glucose Gel 15 Gm Gel..Gram.) 15 gm PO Q15M PRN; Protocol PRN Reason: per Hypoglycemia Standing Ord. Hydroxyzine HCl (Hydroxyzine Hcl 25 Mg Tablet) 25 mg PO Q6H PRN PRN Reason: Anxiety Last Admin: 10/27/23 20:38 Dose: 25 mg Dextrose (D10) 250 mls @ 750 mls/hr IV Q15M PRN; Protocol PRN Reason: per Hypoglycemia Standing Ord. Insulin Glargine (Insulin Glargine,Hum.Rec.Anlog 100 Unit/Ml 10 Ml Vial) 20 unit SUBCUT BEDTIME [facility] Last Admin: 11/30/23 20:54 Dose: 20 unit Insulin Human Lispro (Insulin Lispro 100 Unit/Ml 3 Ml Vial) 0 unit SUBCUT QIDACHS [facility]; Protocol Last Admin: 12/01/23 08:53 Dose: Not Given Lamotrigine (Lamotrigine 100 Mg Tablet) 150 mg PO BEDTIME [facility] Last Admin: 11/30/23 20:53 Dose: 150 mg Levothyroxine Sodium (Levothyroxine Sodium 150 Mcg Tablet) 150 mcg PO DAILY@0800 [facility] Last Admin: 11/30/23 09:22 Dose: 150 mcg Magnesium Hydroxide (Milk Of Magnesia 30 Ml Oral.Susp) 30 ml PO DAILY PRN PRN Reason: Constipation Memantine (Memantine Hcl 5 Mg Tablet) 5 mg PO BID [facility] Last Admin: 11/30/23 20:53 Dose: 5 mg Metformin HCl (Metformin Hcl Er 500 Mg Tab.Er.24h) 1,000 mg PO DAILY@1700 [facility] Last Admin: 11/30/23 18:01 Dose: 1,000 mg Nicotine Polacrilex (Nicotine Polacrilex 2 Mg Gum) 4 mg BUCCAL Q2H PRN PRN Reason: Nicotine Cravings Ondansetron HCl (Ondansetron Odt 8 Mg Tab.Rapdis) 8 mg TRANSLINGU Q8H PRN PRN Reason: Nausea and Vomiting Last Admin: 11/27/23 10:48 Dose: 8 mg Sertraline HCl (Sertraline Hcl 100 Mg Tablet) 100 mg PO DAILY MANAS Last Admin: 11/30/23 09:22 Dose: 100 mg Simethicone (Simethicone 80 Mg Tab.Chew) 80 mg PO QIDWMHS PRN PRN Reason: Gas Trazodone HCl (Trazodone Hcl 50 Mg Tablet) 50 mg PO BEDTIME MRX1 PRN PRN Reason: Insomnia Last Admin: 11/10/23 20:29 Dose: 50 mg Allergies Allergies Allergy/AdvReac Type Severity Reaction Status Date / Time amoxicillin [AMOXICILLIN] Allergy Mild VOMITING/ABD Verified 09/10/23 19:44 PAIN Assessment & Plan Assessment & Plan (1) Schizoaffective disorder: Status: Acute Code(s): F25.9 - Schizoaffective disorder, unspecified (2) Hypothyroidism: Status: Acute Code(s): E03.9 - Hypothyroidism, unspecified (3) Type 2 diabetes mellitus: Status: Acute Code(s): E11.9 - Type 2 diabetes mellitus without complications (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 Plan: CV 15 minute safety checks Continue home medications: Haldol 10mg PO daily Synthroid 200mcg PO daily Obtain labs; A1C/POCs Obtain collateral from sister Obtain records from last hospitalization. MOCA Referral for [facility] services if patient is agreeable. encourage medication compliance;consider VARGAS discharge planning 09/11: Elevated fasting blood sugar elevated hemoglobin A1c 9.2 med consult placed put in point of care needed will start metformin Would benefit from clarity over recent hospitalization what this were done details regarding treatment continue Haldol unclear if patient has Healthcare proxy his Jud was low slowed cognition with poor details in depth at times during blankly regarding making judgments Unclear if any of this relates to past coma or 2 hypothyroidism. He does seem more impaired than when last seen unclear when last imaging was. Continue Haldol sitter neuro indira involvement regarding diagnostic picture. Patient does remain paranoid blunted suspicious apathetic. He might benefit from longer-term placement if available and appropriate at a later time involved [facility] involvement would be quite helpful 09/12: cont haldol get records ? hcp ? start antidep unclear hx 09/13: Keeping to self. More talkative today. Pt concerned he will be transferred to [facility]. Pt stated, The paper I signed yesterday. Are you going to send me back to the last hospital? That place was horrible . Pt was educated he signed a release of information with Dr. Gonzalez to obtain records from [facility]. Pt was given a copy of the release he signed. Despite this, pt continues to be anxious about being transferred. Pt denies SI/HI/VH/AH. 09/14: Keeping to self. active on unit. showered. Pt reports feeling alright today; pt reports he is worried about where I'm going to go . Pt continues concerned he will be transferred to [facility]. Pt denies SI/HI/VH/AH. 09/15:Pt reports feeling alright today; pt continues to report he is worried about where I'm going to go . Responding with brief responses. Guarded. Observed standing in one place for a long period of time. Appears confused. Pt denies SI/HI/VH/AH. T/W spoke to patient's sister, Ros, with patients verbal consent. Ros reports concerns regarding patients ability to make decisions regarding his mental and physical health. She plans on contacting legal advice on obtaining guardianship of patient. 09/16:Patient's presents similar to yesterday's presentation. Responding with brief responses. Guarded. Observed standing in one place for a long period of time, when asked what he is doing, pt stated, I don't know . Pt reports he plans on contacting his sister today and try to convince her for me to stay there . Pt denies SI/HI/VH/AH. Continue current tx plan. 09/17: brief responses. Guarded. Continues to lineman a class one place for a long period of time, when asked what he is doing, pt stated, I don't know . Pt denies SI/HI/VH/AH. T/W and Dr. Gonzalez spoke to patient's sister, Ros. Ros stated being [facility] HCP and plans on finding document. She plans on coming to the hospital on Saturday to be present for [facility] intake. 09/21: No changes 09/22:Patient flat apathetic difficult insight and judgment his sister is healthcare proxy if needed patient is accepting medical treatment Referral to [facility] 09/23:Considers starting Haldol Decanoate patient is agreeable superficially difficulty with exec fx was seen [facility] 09/24:Pt seen in f/u mood flat dysphoric difficulty engaging in conversation preoccupied with thought he wont be living with family thing slowed apathetic no clear response with namenda ? some improvement inc lamictal start low dose sertraline inc lamictal ck tsh 09/25:Start Abilify as augmentation with Haldol see if can be more stimulating regarding depressed mood apathetic limited engagement sertraline 50 mg Lamictal 25 b.i.d. referral to [facility] which would have structure unclear if patient can engage with this he remains quite depressed has delusional beliefs regarding housing and that things have been done he has repeatedly tried to reach out to his sister denies active SI needs much help dressing talking with others encouragement to eat severe thought blocking Abilify might be more stimulating than Haldol which can be more dulling 09/26:Abilify started sertraline Lamictal encouraged step-down to [facility] encourage reality orientation denies active SI 09/27: Continue current regimen and plans 09/28: Continue current regimen and plans. 09/29: Referral to [facility] increase Abilify to 5 mg daily eventually try and taper Haldol sertraline 50 mg daily 09/30:Increase Abilify to 10 mg lower Haldol to 7 mg continue sertraline and Lamictal 10/01:Abilify increased to 10 mg continue to taper Haldol sertraline 100 mg Lamictal increased to 75 mg patient apathetic withdrawn difficulty with placement some paranoia continues difficulty with decision making at times. Not physically aggressive internally preoccupied seems somewhat improved with Abilify sertraline Continue discharge planning 10/02:Patient somewhat blunted flat slowed thinking during the day times staring. Change Abilify to 10 mg at bedtime. Scheduled Haldol will lowered to 2.5 mg Continue sertraline 100 mg Namenda 5 b.i.d. 10/03:Haldol discontinued modafinil low-dose monitor for psychosis or agitation continue discharge planning 10/06: May need to firm healthcare proxy calls have been placed to sister to try to help in discharge planning. Referrals made. Patient cooperative with care 10/07:Pharmacy ordering Abilify maintain a increase modafinil 100 mg patient remains flat passive depressed some improvement noted no current paranoia noted continue discharge planning no current safe discharge plan 10/08: Increase Lamictal 100 mg Abilify Maintena 400 mg hold modafinil unclear if was overly stimulating patient continues to present internally preoccupied. 10/09:Healthcare proxy invoked discharge planning continue Lamictal Abilify pending maintain a 10/10:Healthcare proxy invoked new CV signed discharge planning. 10/11 keep same treatment 10/12 keep same treatment 10/13: Continue plan of care Lamictal Abilify discharge planning sertraline 10/14: stable. continue current mgmt. 10/15: stable. continue current mgmt. 10/16: stable presentation. continue current mgmt. 10/17: as for yesterday. 10/18: no changes. 10/19: stabel, safe. no change. 10/20: no change in presentation. calm, cooperative. active on unit, social with select peers, attending groups. Pt reports feeling alright . denies SI/HI/VH/AH. Social work waiting to hear from possible placement location. Continue current tx plan. 10/21: continue current tx plan. awaiting placement. 10/22: calm, cooperative. active on unit, social with select peers, attending groups. Pt reports feeling good ; pt stated, I'm waiting to see where I'm going . denies SI/HI/VH/AH. Showered with encouragement. 10/23: continue current tx plan. 10/24: calm, cooperative. active on unit, social with select peers, attending groups. Pt reports feeling good ; pt stated, I just want a place to live . 10/25- likely at baseline for him- CTP 10/26 CTP likely needs placement 10/27: continue current tx plan. awaiting placement. 10/28: Similar to yesterday. No change in presentation. 10/29: Pt reports feeling good ;pt stated, just waiting for a place to live . denies any issues at this time. 10/30: calm, cooperative. active on unit, social with select peers, attending groups. Pt reports feeling worried about where I am going to live . denies any issues at this time. 10/21: no change in presentation. continue current tx plan. 11/01: continue current management and treatment plan. 11/02: Continue current management and treatment plan. 11/03: Continue current management and treatment plan. 11/04: Active on unit. calm, cooperative. social with select peers, attending groups. denies any issues at this time. He reports sleeping well. Pt reports he would be interested in applying for [facility] services; social work aware. 11/05: Active on unit. calm, cooperative. social with select peers, attending groups. denies any issues at this time. Pt reports feeling okay ; he reports anxiety regarding placement. Continue current tx plan. 11/06: [facility] referral has appropriate concerns re living stuation cont abilify lamictal 11/07: Pt cooperative with care d/c planning working with cont d/c planning cont lamictal abilify 11/11: Patient increasingly despairing aware of no clear discharge plan periods needs cuing for much functioning limited social engaged needs help regarding diabetes and medication compliance reportedly had been rejected by multiple rest homes patient not threatening intermittently hopeless helpless very limited family contact at this time 11/12: pt flat depressed hopeless helpless unable to fx without structure 11/15 continue tx. 11/16 continue tx. 11/17: Continue plan of care referral to [facility] TSH low will decrease levothyroxine 11/18: Pt flat dysphor ic inc hopeless helpless lamictal 150 hs dec levothyroxine 150 d/c planning cont 11/20: Keeping to self. Laying in bed most of morning. Pt reports feeling depressed because of the situation . Continues to deny SI/HI/VH/AH. Pt is hoping for housing soon. 11/21: Active on unit, social with peers. Pt continues to report feeling depressed because of the situation . denies SI/HI/VH/AH. Denies any issues at this time. 11/22: Continue current regimen and plans 11/23: Continue current regimen and plans 11/24: Denies any issues at this time. Visited with his sister, Ros. Pt reports visit went well. He reports feeling alright today. Waiting on placement. 11/25: Pt reports feeling so-so today; he reports feeling impatient regarding placement. showered with staff encouragement. 11/26: continue current tx plan. 11/27: Continue current treatment plan. Waiting on placement. 11/28: Similar to days prior. waiting on placement. continue current tx plan. 11/29: Continue current treatment plan. 11/30: Continue current treatment plan. Reason for continued inpatient stay Substantial Risk for: other (Waiting on placement.) Time Spent With Patient Time: Total time managing care of this patient today _20___ minutes.
[2023-12-01] MEDS: Levothyroxine Sodium 150 MCG TABLET PO (09:28)
[2023-12-01] MEDS: Memantine HCl 5 MG TABLET PO ×2 (09:28→22:16)
[2023-12-01] MEDS: Sertraline HCL 100 MG TABLET PO (09:28)
[2023-12-01 10:00] VITALS: BP 142/71; PULSE 100; RESP 18; TEMP 36.9; O2SAT 96
[2023-12-01 13:11] LABS: Glucose, Whole Blood 101 mg/dL (60-115)
[2023-12-01] MEDS: metFORMIN HCl ER 500 MG TAB.ER.24H 1000 MG PO (17:49)
[2023-12-01 17:50] LABS: Glucose, Whole Blood 102 mg/dL (60-115)
[2023-12-01 20:00] VITALS: BP 124/70; PULSE 85; RESP 16; TEMP 36.9; O2SAT 98
[2023-12-01 20:25] LABS: Glucose, Whole Blood 186 mg/dL (60-115)
[2023-12-01] MEDS: Insulin Lispro 100 UNIT/ML 3 ML VIAL SUBCUT (22:12)
[2023-12-01] MEDS: Insulin Glargine,Hum.rec.anlog 100 UNIT/ML 10 ML VIAL 20 UNIT SUBCUT (22:12)
[2023-12-01] MEDS: ARIPiprazole 10 MG TABLET PO (22:14)
[2023-12-01] MEDS: lamoTRIgine 100 MG TABLET 150 MG PO (22:15)
[2023-12-02] MEDS: traZODone HCL 50 MG TABLET PO ×2 (00:02→23:29)
[2023-12-02] MEDS: hydrOXYzine HCL 25 MG TABLET PO (00:02)
[2023-12-02 08:32] LABS: Glucose, Whole Blood 100 mg/dL (60-115)
[2023-12-02] MEDS: Sertraline HCL 100 MG TABLET PO (09:56)
[2023-12-02] MEDS: Levothyroxine Sodium 150 MCG TABLET PO (09:56)
[2023-12-02] MEDS: Memantine HCl 5 MG TABLET PO ×2 (09:56→21:38)
[2023-12-02 11:40] VITALS: BP 136/83; PULSE 85; RESP 18; TEMP 36.4; O2SAT 97
[2023-12-02 12:43] LABS: Glucose, Whole Blood 218 mg/dL (60-115)
[2023-12-02] MEDS: Insulin Lispro 100 UNIT/ML 3 ML VIAL SUBCUT ×2 (12:55→21:37)
[2023-12-02 17:54] LABS: Glucose, Whole Blood 101 mg/dL (60-115)
[2023-12-02] MEDS: metFORMIN HCl ER 500 MG TAB.ER.24H 1000 MG PO (18:05)
[2023-12-02 20:00] VITALS: BP 133/66; PULSE 95; RESP 17; TEMP 36.9; O2SAT 98
[2023-12-02 21:25] LABS: Glucose, Whole Blood 237 mg/dL (60-115)
[2023-12-02] MEDS: Insulin Glargine,Hum.rec.anlog 100 UNIT/ML 10 ML VIAL 20 UNIT SUBCUT (21:37)
[2023-12-02] MEDS: lamoTRIgine 100 MG TABLET 150 MG PO (21:38)
[2023-12-02] MEDS: ARIPiprazole 10 MG TABLET PO (21:38)
--- NOTE | 2023-12-02 23:03 | HO.PSYCHPN ---
Subjective Subjective Date of Service: 12/02/23 Reason For Visit: paranoia cognitive impairment Subjective Notes: Conditional Voluntary Healthcare Proxy: Yes Medical Problems Affecting Mental Status: Yes Interim History: Patient seen psychiatric follow-up. Patient has been engaged on the unit flat somewhat apathetic cooperative with planning intermittent group attendance No aggression or stocking Medication Compliance: Yes Mental Status Exam Mental Status Exam Patient Appearance: Disheveled Patient Orientation: Person, Place and Situation Level of Consciousness: Awake Patient Behavior: Appropriate and Cooperative Mood Description: Calm, Blunted and Flat Affect Description: Blunted Patient Cognition Impaired: Yes Ability to Follow Directions: Fair Speech Pattern: Clear and Soft-Spoken 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: Snf Impaired Thought Content: positive for [place] and positive for Poverty of Content Diagnostics Vital Signs (24Hr): Vital Signs - 24 hr 12/02/23 11:40 Temperature 97.5 F Pulse Rate 85 Respiratory Rate 18 Blood Pressure 136/83 Pulse Oximetry 97 Oxygen Delivery Method Room Air BMI result Body Mass Index 31.9 Labs 09/10/23 20:00 11/28/23 07:51 Labs: Laboratory Results - last 48 hr 12/01/23 12/01/23 12/01/23 08:50 13:07 17:45 POC Glucose 102 101 102 12/01/23 12/02/23 12/02/23 20:18 08:25 12:37 POC Glucose 186 H 100 218 H 12/02/23 12/02/23 17:49 21:11 POC Glucose 101 237 H Imaging Radiology Impressions: ITS Impressions Brain MRI 09/19/23 20:33 IMPRESSION: 1. No demonstrated acute intracranial abnormalities. 2. Chronic mild to moderate nonspecific white matter changes, most notably in the deep white matter of the right frontal lobe. Mild to moderate generalized cerebral volume loss. Medications Medications Current Medications Acetaminophen (Acetaminophen 325 Mg Tablet) 650 mg PO Q6H PRN PRN Reason: Headache/Pain Mild Scale (1-3) Last Admin: 10/13/23 09:39 Dose: 650 mg Al Hydroxide/Mg Hydroxide (Magnesium Hydrox/Alum Hydrox 30 Ml Oral.Susp) 30 ml PO Q6H PRN PRN Reason: Heartburn/Nausea Last Admin: 11/27/23 10:48 Dose: 30 ml Aripiprazole (Aripiprazole 10 Mg Tablet) 10 mg PO BEDTIME MANAS Last Admin: 12/02/23 21:38 Dose: 10 mg Benztropine Mesylate (Benztropine Mesylate 0.5 Mg Tablet) 0.5 mg PO TID PRN PRN Reason: Extrapyramidal Effects Glucose (Glucose Gel 15 Gm Gel..Gram.) 15 gm PO Q15M PRN; Protocol PRN Reason: per Hypoglycemia Standing Ord. Hydroxyzine HCl (Hydroxyzine Hcl 25 Mg Tablet) 25 mg PO Q6H PRN PRN Reason: Anxiety Last Admin: 12/02/23 00:02 Dose: 25 mg Dextrose (D10) 250 mls @ 750 mls/hr IV Q15M PRN; Protocol PRN Reason: per Hypoglycemia Standing Ord. Insulin Glargine (Insulin Glargine,Hum.Rec.Anlog 100 Unit/Ml 10 Ml Vial) 20 unit SUBCUT BEDTIME [facility] Last Admin: 12/02/23 21:37 Dose: 20 unit Insulin Human Lispro (Insulin Lispro 100 Unit/Ml 3 Ml Vial) 0 unit SUBCUT QIDACHS [facility]; Protocol Last Admin: 12/02/23 21:37 Dose: 4 unit Lamotrigine (Lamotrigine 100 Mg Tablet) 150 mg PO BEDTIME [facility] Last Admin: 12/02/23 21:38 Dose: 150 mg Levothyroxine Sodium (Levothyroxine Sodium 150 Mcg Tablet) 150 mcg PO DAILY@0800 [facility] Last Admin: 12/02/23 09:56 Dose: 150 mcg Magnesium Hydroxide (Milk Of Magnesia 30 Ml Oral.Susp) 30 ml PO DAILY PRN PRN Reason: Constipation Memantine (Memantine Hcl 5 Mg Tablet) 5 mg PO BID [facility] Last Admin: 12/02/23 21:38 Dose: 5 mg Metformin HCl (Metformin Hcl Er 500 Mg Tab.Er.24h) 1,000 mg PO DAILY@1700 [facility] Last Admin: 12/02/23 18:05 Dose: 1,000 mg Nicotine Polacrilex (Nicotine Polacrilex 2 Mg Gum) 4 mg BUCCAL Q2H PRN PRN Reason: Nicotine Cravings Ondansetron HCl (Ondansetron Odt 8 Mg Tab.Rapdis) 8 mg TRANSLINGU Q8H PRN PRN Reason: Nausea and Vomiting Last Admin: 11/27/23 10:48 Dose: 8 mg Sertraline HCl (Sertraline Hcl 100 Mg Tablet) 100 mg PO DAILY [facility] Last Admin: 12/02/23 09:56 Dose: 100 mg Simethicone (Simethicone 80 Mg Tab.Chew) 80 mg PO QIDWMHS PRN PRN Reason: Gas Trazodone HCl (Trazodone Hcl 50 Mg Tablet) 50 mg PO BEDTIME MRX1 PRN PRN Reason: Insomnia Last Admin: 12/02/23 00:02 Dose: 50 mg Allergies Allergies Allergy/AdvReac Type Severity Reaction Status Date / Time amoxicillin [AMOXICILLIN] Allergy Mild VOMITING/ABD Verified 09/10/23 19:44 PAIN Assessment & Plan Assessment & Plan (1) Schizoaffective disorder: Status: Acute Code(s): F25.9 - Schizoaffective disorder, unspecified (2) Hypothyroidism: Status: Acute Code(s): E03.9 - Hypothyroidism, unspecified (3) Type 2 diabetes mellitus: Status: Acute Code(s): E11.9 - Type 2 diabetes mellitus without complications (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 Plan: CV 15 minute safety checks Continue home medications: Haldol 10mg PO daily Synthroid 200mcg PO daily Obtain labs; A1C/POCs Obtain collateral from sister Obtain records from last hospitalization. MOCA Referral for [facility] services if patient is agreeable. encourage medication compliance;consider VARGAS discharge planning 09/11: Elevated fasting blood sugar elevated hemoglobin A1c 9.2 med consult placed put in point of care needed will start metformin Would benefit from clarity over recent hospitalization what this were done details regarding treatment continue Haldol unclear if patient has Healthcare proxy his [place] was low slowed cognition with poor details in depth at times during blankly regarding making judgments Unclear if any of this relates to past coma or 2 hypothyroidism. He does seem more impaired than when last seen unclear when last imaging was. Continue Haldol sitter neuro indira involvement regarding diagnostic picture. Patient does remain paranoid blunted suspicious apathetic. He might benefit from longer-term placement if available and appropriate at a later time involved H involvement would be quite helpful 09/12: cont haldol get records ? hcp ? start antidep unclear hx 09/13: Keeping to self. More talkative today. Pt concerned he will be transferred to [facility]. Pt stated, The paper I signed yesterday. Are you going to send me back to the last hospital? That place was horrible . Pt was educated he signed a release of information with Dr. Gonzalez to obtain records from [facility]. Pt was given a copy of the release he signed. Despite this, pt continues to be anxious about being transferred. Pt denies SI/HI/VH/AH. 09/14: Keeping to self. active on unit. showered. Pt reports feeling alright today; pt reports he is worried about where I'm going to go . Pt continues concerned he will be transferred to [facility]. Pt denies SI/HI/VH/AH. 09/15:Pt reports feeling alright today; pt continues to report he is worried about where I'm going to go . Responding with brief responses. Guarded. Observed standing in one place for a long period of time. Appears confused. Pt denies SI/HI/VH/AH. T/W spoke to patient's sister, Ros, with patients verbal consent. Ros reports concerns regarding patients ability to make decisions regarding his mental and physical health. She plans on contacting legal advice on obtaining guardianship of patient. 09/16:Patient's presents similar to yesterday's presentation. Responding with brief responses. Guarded. Observed standing in one place for a long period of time, when asked what he is doing, pt stated, I don't know . Pt reports he plans on contacting his sister today and try to convince her for me to stay there . Pt denies SI/HI/VH/AH. Continue current tx plan. 09/17: brief responses. Guarded. 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 Pt denies SI/HI/VH/AH. T/W and Dr. Gonzalez spoke to patient's sister, Ros. Ros stated being [facility] HCP and plans on finding document. She plans on coming to the hospital on Saturday to be present for [facility] intake. 09/21: No changes 09/22:Patient flat apathetic difficult insight and judgment his sister is healthcare proxy if needed patient is accepting medical treatment Referral to [facility] 09/23:Considers starting Haldol Decanoate patient is agreeable superficially difficulty with exec fx was seen [facility] 09/24:Pt seen in f/u mood flat dysphoric difficulty engaging in conversation preoccupied with thought he wont be living with family thing slowed apathetic no clear response with namenda ? some improvement inc lamictal start low dose sertraline inc lamictal ck tsh 09/25:Start Abilify as augmentation with Haldol see if can be more stimulating regarding depressed mood apathetic limited engagement sertraline 50 mg Lamictal 25 b.i.d. referral to [facility] which would have structure unclear if patient can engage with this he remains quite depressed has delusional beliefs regarding housing and that things have been done he has repeatedly tried to reach out to his sister denies active SI needs much help dressing talking with others encouragement to eat severe thought blocking Abilify might be more stimulating than Haldol which can be more dulling 09/26:Abilify started sertraline Lamictal encouraged [facility] to [facility] encourage reality orientation denies active SI 09/27: Continue current regimen and plans 09/28: Continue current regimen and plans. 09/29: Referral to [facility] increase Abilify to 5 mg daily eventually try and taper Haldol sertraline 50 mg daily 09/30:Increase Abilify to 10 mg lower Haldol to 7 mg continue sertraline and Lamictal 10/01:Abilify increased to 10 mg continue to taper Haldol sertraline 100 mg Lamictal increased to 75 mg patient apathetic withdrawn difficulty with placement some paranoia continues difficulty with decision making at times. Not physically aggressive internally preoccupied seems somewhat improved with Abilify sertraline Continue discharge planning 10/02:Patient somewhat blunted flat slowed thinking during the day times staring. Change Abilify to 10 mg at bedtime. Scheduled Haldol will lowered to 2.5 mg Continue sertraline 100 mg Namenda 5 b.i.d. 10/03:Haldol discontinued modafinil low-dose monitor for psychosis or agitation continue discharge planning 10/06: May need to firm healthcare proxy calls have been placed to sister to try to help in discharge planning. Referrals made. Patient cooperative with care 10/07:Pharmacy ordering Abilify maintain a increase modafinil 100 mg patient remains flat passive depressed some improvement noted no current paranoia noted continue discharge planning no current safe discharge plan 10/08: Increase Lamictal 100 mg Abilify Maintena 400 mg hold modafinil unclear if was overly stimulating patient continues to present internally preoccupied. 10/09:Healthcare proxy invoked discharge planning continue Lamictal Abilify pending maintain a 10/10:Healthcare proxy invoked new CV signed discharge planning. 10/11 keep same treatment 10/12 keep same treatment 10/13: Continue plan of care Lamictal Abilify discharge planning sertraline 10/14: stable. continue current mgmt. 10/15: stable. continue current mgmt. 10/16: stable presentation. continue current mgmt. 10/17: as for yesterday. 10/18: no changes. 10/19: stabel, safe. no change. 10/20: no change in presentation. calm, cooperative. active on unit, social with select peers, attending groups. Pt reports feeling alright . denies SI/HI/VH/AH. Social work waiting to hear from possible placement location. Continue current tx plan. 10/21: continue current tx plan. awaiting placement. 10/22: calm, cooperative. active on unit, social with select peers, attending groups. Pt reports feeling good ; pt stated, I'm waiting to see where I'm going . denies SI/HI/VH/AH. Showered with encouragement. 10/23: continue current tx plan. 10/24: calm, cooperative. active on unit, social with select peers, attending groups. Pt reports feeling good ; pt stated, I just want a place to live . 10/25- likely at baseline for him- CTP 10/26 CTP likely needs placement 10/27: continue current tx plan. awaiting placement. 10/28: Similar to yesterday. No change in presentation. 10/29: Pt reports feeling good ;pt stated, just waiting for a place to live . denies any issues at this time. 10/30: calm, cooperative. active on unit, social with select peers, attending groups. Pt reports feeling worried about where I am going to live . denies any issues at this time. 10/21: no change in presentation. continue current tx plan. 11/01: continue current management and treatment plan. 11/02: Continue current management and treatment plan. 11/03: Continue current management and treatment plan. 11/04: Active on unit. calm, cooperative. social with select peers, attending groups. denies any issues at this time. He reports sleeping well. Pt reports he would be interested in applying for [facility] services; social work aware. 11/05: Active on unit. calm, cooperative. social with select peers, attending groups. denies any issues at this time. Pt reports feeling okay ; he reports anxiety regarding placement. Continue current tx plan. 11/07/23 [facility] referral has appropriate concerns re living stuation cont abilify lamictal 11/08/23 Pt cooperative with care d/c planning working with sw cont d/c planning cont lamictal abilify 11/12/23 Patient increasingly despairing aware of no clear discharge plan periods needs cuing for much functioning limited social engaged needs help regarding diabetes and medication compliance reportedly had been rejected by multiple rest homes patient not threatening intermittently hopeless helpless very limited family contact at this time 11/13/23 pt flat depressed hopeless helpless unable to fx without structure 11/15 continue tx. 11/16 continue tx. 11/18/2023 Continue plan of care referral to [facility] TSH low will decrease levothyroxine 11/19/23 Pt flat dysphor ic inc hopeless helpless lamictal 150 hs dec levothyroxine 150 d/c planning cont 11/20/23 lamictal inc d/c planning [facility] 12/02/2023 Continue Lamictal Abilify patient cooperative with care gets despairing at times regarding lack of family support problematic discharge planning in relationship to finding suitable structured place to live Reason for continued inpatient stay Substantial Risk for: inability to function, rapid decompensation and med/psych decompensation Time Spent With Patient Time: Total time managing care of this patient today ____ minutes.
[2023-12-03 07:15] VITALS: BP 144/75; PULSE 72; RESP 16; TEMP 36.8; O2SAT 97
[2023-12-03] MEDS: Sertraline HCL 100 MG TABLET PO (08:12)
[2023-12-03] MEDS: Memantine HCl 5 MG TABLET PO ×2 (08:13→20:55)
[2023-12-03] MEDS: Levothyroxine Sodium 150 MCG TABLET PO (08:13)
[2023-12-03 08:36] LABS: Glucose, Whole Blood 132 mg/dL (60-115)
--- NOTE | 2023-12-03 09:56 | HO.PSYCHPN ---
Subjective Subjective Date of Service: 12/03/23 Reason For Visit: paranoia cognitive impairment Subjective Notes: Conditional Voluntary Interim History: Reviewed with Dr. Gonzalez. Social with peers. Per nursing, pt did not sleep last night. Pt reports he did not sleeping because he wasn't tired but feel okay ; ordered Ativan 1mg PO bedtime for tonight, pt aware. Medication Compliance: Yes Side effects from medications: No Attending Groups: Yes Review of Systems Constitutional: Reports as per HPI Eyes: Reports as per HPI Reports as per HPI Cardiovascular: Reports as per HPI Respiratory: Reports as per HPI Gastrointestinal: Reports as per HPI Genitourinary: Reports as per HPI Musculoskeletal: Reports as per HPI Skin/Breast: Reports as per HPI Reports as per HPI Psychiatric: Reports as per HPI Endocrine: Reports as per HPI Hematologic/Lymphatic: Reports as per HPI Allergic/Immunologic: Reports as per HPI Mental Status Exam Mental Status Exam Patient Appearance: Disheveled Patient Orientation: Person, Place and Situation Level of Consciousness: Awake Patient Behavior: Appropriate and Cooperative Mood Description: Calm, Blunted and Flat Affect Description: Blunted Patient Cognition Impaired: Yes Ability to Follow Directions: Fair Speech Pattern: Clear and Soft-Spoken 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: Shelter Impaired Diagnostics Vital Signs (24Hr): Vital Signs - 24 hr 12/02/23 11:40 12/02/23 20:00 12/03/23 07:15 Temperature 97.5 F 98.4 F 98.3 F Pulse Rate 85 95 72 Respiratory Rate 18 17 16 Blood Pressure 136/83 133/66 144/75 H Pulse Oximetry 97 98 97 Oxygen Delivery Method Room Air Room Air Room Air BMI result Body Mass Index 31.9 Labs 09/10/23 20:00 11/28/23 07:51 Labs: Laboratory Results - last 48 hr 12/01/23 12/01/23 12/01/23 13:07 17:45 20:18 POC Glucose 101 102 186 H 12/02/23 12/02/23 12/02/23 08:25 12:37 17:49 POC Glucose 100 218 H 101 12/02/23 12/03/23 21:11 08:27 POC Glucose 237 H 132 H Imaging Radiology Impressions: ITS Impressions Brain MRI 09/19/23 20:33 IMPRESSION: 1. No demonstrated acute intracranial abnormalities. 2. Chronic mild to moderate nonspecific white matter changes, most notably in the deep white matter of the right frontal lobe. Mild to moderate generalized cerebral volume loss. Medications Medications Current Medications Acetaminophen (Acetaminophen 325 Mg Tablet) 650 mg PO Q6H PRN PRN Reason: Headache/Pain Mild Scale (1-3) Last Admin: 10/13/23 09:39 Dose: 650 mg Al Hydroxide/Mg Hydroxide (Magnesium Hydrox/Alum Hydrox 30 Ml Oral.Susp) 30 ml PO Q6H PRN PRN Reason: Heartburn/Nausea Last Admin: 11/27/23 10:48 Dose: 30 ml Aripiprazole (Aripiprazole 10 Mg Tablet) 10 mg PO BEDTIME [facility] Last Admin: 12/02/23 21:38 Dose: 10 mg Benztropine Mesylate (Benztropine Mesylate 0.5 Mg Tablet) 0.5 mg PO TID PRN PRN Reason: Extrapyramidal Effects Glucose (Glucose Gel 15 Gm Gel..Gram.) 15 gm PO Q15M PRN; Protocol PRN Reason: per Hypoglycemia Standing Ord. Hydroxyzine HCl (Hydroxyzine Hcl 25 Mg Tablet) 25 mg PO Q6H PRN PRN Reason: Anxiety Last Admin: 12/02/23 00:02 Dose: 25 mg Dextrose (D10) 250 mls @ 750 mls/hr IV Q15M PRN; Protocol PRN Reason: per Hypoglycemia Standing Ord. Insulin Glargine (Insulin Glargine,Hum.Rec.Anlog 100 Unit/Ml 10 Ml Vial) 20 unit SUBCUT BEDTIME [facility] Last Admin: 12/02/23 21:37 Dose: 20 unit Insulin Human Lispro (Insulin Lispro 100 Unit/Ml 3 Ml Vial) 0 unit SUBCUT QIDACHS [facility]; Protocol Last Admin: 12/03/23 09:05 Dose: Not Given Lamotrigine (Lamotrigine 100 Mg Tablet) 150 mg PO BEDTIME [facility] Last Admin: 12/02/23 21:38 Dose: 150 mg Levothyroxine Sodium (Levothyroxine Sodium 150 Mcg Tablet) 150 mcg PO DAILY@0800 [facility] Last Admin: 12/03/23 08:13 Dose: 150 mcg Magnesium Hydroxide (Milk Of Magnesia 30 Ml Oral.Susp) 30 ml PO DAILY PRN PRN Reason: Constipation Memantine (Memantine Hcl 5 Mg Tablet) 5 mg PO BID [facility] Last Admin: 12/03/23 08:13 Dose: 5 mg Metformin HCl (Metformin Hcl Er 500 Mg Tab.Er.24h) 1,000 mg PO DAILY@1700 [facility] Last Admin: 12/02/23 18:05 Dose: 1,000 mg Nicotine Polacrilex (Nicotine Polacrilex 2 Mg Gum) 4 mg BUCCAL Q2H PRN PRN Reason: Nicotine Cravings Ondansetron HCl (Ondansetron Odt 8 Mg Tab.Rapdis) 8 mg TRANSLINGU Q8H PRN PRN Reason: Nausea and Vomiting Last Admin: 11/27/23 10:48 Dose: 8 mg Sertraline HCl (Sertraline Hcl 100 Mg Tablet) 100 mg PO DAILY [facility] Last Admin: 12/03/23 08:12 Dose: 100 mg Simethicone (Simethicone 80 Mg Tab.Chew) 80 mg PO QIDWMHS PRN PRN Reason: Gas Trazodone HCl (Trazodone Hcl 50 Mg Tablet) 50 mg PO BEDTIME MRX1 PRN PRN Reason: Insomnia Last Admin: 12/02/23 23:29 Dose: 50 mg Allergies Allergies Allergy/AdvReac Type Severity Reaction Status Date / Time amoxicillin [AMOXICILLIN] Allergy Mild VOMITING/ABD Verified 09/10/23 19:44 PAIN Assessment & Plan Assessment & Plan (1) Schizoaffective disorder: Status: Acute Code(s): F25.9 - Schizoaffective disorder, unspecified (2) Hypothyroidism: Status: Acute Code(s): E03.9 - Hypothyroidism, unspecified (3) Type 2 diabetes mellitus: Status: Acute Code(s): E11.9 - Type 2 diabetes mellitus without complications (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 Plan: CV 15 minute safety checks Continue home medications: Haldol 10mg PO daily Synthroid 200mcg PO daily Obtain labs; A1C/POCs Obtain collateral from sister Obtain records from last hospitalization. MOCA Referral for [facility] services if patient is agreeable. encourage medication compliance;consider VARGAS discharge planning 09/11: Elevated fasting blood sugar elevated hemoglobin A1c 9.2 med consult placed put in point of care needed will start metformin Would benefit from clarity over recent hospitalization what this were done details regarding treatment continue Haldol unclear if patient has Healthcare proxy his [place] was low slowed cognition with poor details in depth at times during blankly regarding making judgments Unclear if any of this relates to past coma or 2 hypothyroidism. He does seem more impaired than when last seen unclear when last imaging was. Continue Haldol sitter neuro indira involvement regarding diagnostic picture. Patient does remain paranoid blunted suspicious apathetic. He might benefit from longer-term placement if available and appropriate at a later time involved [facility] involvement would be quite helpful 09/12: cont haldol get records ? hcp ? start antidep unclear hx 09/13: Keeping to self. More talkative today. Pt concerned he will be transferred to [facility]. Pt stated, The paper I signed yesterday. Are you going to send me back to the last hospital? That place was horrible . Pt was educated he signed a release of information with Dr. Gonzalez to obtain records from [facility]. Pt was given a copy of the release he signed. Despite this, pt continues to be anxious about being transferred. Pt denies SI/HI/VH/AH. 09/14: Keeping to self. active on unit. showered. Pt reports feeling alright today; pt reports he is worried about where I'm going to go . Pt continues concerned he will be transferred to [facility]. Pt denies SI/HI/VH/AH. 09/15:Pt reports feeling alright today; pt continues to report he is worried about where I'm going to go . Responding with brief responses. Guarded. Observed standing in one place for a long period of time. Appears confused. Pt denies SI/HI/VH/AH. T/W spoke to patient's sister, Ros, with patients verbal consent. Ros reports concerns regarding patients ability to make decisions regarding his mental and physical health. She plans on contacting legal advice on obtaining guardianship of patient. 09/16:Patient's presents similar to yesterday's presentation. Responding with brief responses. Guarded. Observed standing in one place for a long period of time, when asked what he is doing, pt stated, I don't know . Pt reports he plans on contacting his sister today and try to convince her for me to stay there . Pt denies SI/HI/VH/AH. Continue current tx plan. 09/17: brief responses. Guarded. 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 Pt denies SI/HI/VH/AH. T/W and Dr. Gonzalez spoke to patient's sister, Ros. Ros stated being [place] HCP and plans on finding document. She plans on coming to the hospital on Saturday to be present for [facility] intake. 09/21: No changes 09/22:Patient flat apathetic difficult insight and judgment his sister is healthcare proxy if needed patient is accepting medical treatment Referral to [facility] 09/23:Considers starting Haldol Decano[place] patient is agreeable superficially difficulty with exec fx was seen [facility] 09/24:Pt seen in f/u mood flat dysphoric difficulty engaging in conversation preoccupied with thought he wont be living with family thing slowed apathetic no clear response with namenda ? some improvement inc lamictal start low dose sertraline inc lamictal ck tsh 09/25:Start Abilify as augmentation with Haldol see if can be more stimulating regarding depressed mood apathetic limited engagement sertraline 50 mg Lamictal 25 b.i.d. referral to [facility] which would have structure unclear if patient can engage with this he remains quite depressed has delusional beliefs regarding housing and that things have been done he has repeatedly tried to reach out to his sister denies active SI needs much help dressing talking with others encouragement to eat severe thought blocking Abilify might be more stimulating than Haldol which can be more dulling 09/26:Abilify started sertraline Lamictal encouraged step-down to [facility] encourage reality orientation denies active SI 09/27: Continue current regimen and plans 09/28: Continue current regimen and plans. 09/29: Referral to [facility] increase Abilify to 5 mg daily eventually try and taper Haldol sertraline 50 mg daily 09/30:Increase Abilify to 10 mg lower Haldol to 7 mg continue sertraline and Lamictal 10/01:Abilify increased to 10 mg continue to taper Haldol sertraline 100 mg Lamictal increased to 75 mg patient apathetic withdrawn difficulty with placement some paranoia continues difficulty with decision making at times. Not physically aggressive internally preoccupied seems somewhat improved with Abilify sertraline Continue discharge planning 10/02:Patient somewhat blunted flat slowed thinking during the day times staring. Change Abilify to 10 mg at bedtime. Scheduled Haldol will lowered to 2.5 mg Continue sertraline 100 mg Namenda 5 b.i.d. 10/03:Haldol discontinued modafinil low-dose monitor for psychosis or agitation continue discharge planning 10/06: May need to firm healthcare proxy calls have been placed to sister to try to help in discharge planning. Referrals made. Patient cooperative with care 10/07:Pharmacy ordering Abilify maintain a increase modafinil 100 mg patient remains flat passive depressed some improvement noted no current paranoia noted continue discharge planning no current safe discharge plan 10/08: Increase Lamictal 100 mg Abilify Maintena 400 mg hold modafinil unclear if was overly stimulating patient continues to present internally preoccupied. 10/09:Healthcare proxy invoked discharge planning continue Lamictal Abilify pending maintain a 10/10:Healthcare proxy invoked new CV signed discharge planning. 10/11 keep same treatment 10/12 keep same treatment 10/13: Continue plan of care Lamictal Abilify discharge planning sertraline 10/14: stable. continue current mgmt. 10/15: stable. continue current mgmt. 10/16: stable presentation. continue current mgmt. 10/17: as for yesterday. 10/18: no changes. 10/19: stabel, safe. no change. 10/20: no change in presentation. calm, cooperative. active on unit, social with select peers, attending groups. Pt reports feeling alright . denies SI/HI/VH/AH. Social work waiting to hear from possible placement location. Continue current tx plan. 10/21: continue current tx plan. awaiting placement. 10/22: calm, cooperative. active on unit, social with select peers, attending groups. Pt reports feeling good ; pt stated, I'm waiting to see where I'm going . denies SI/HI/VH/AH. Showered with encouragement. 10/23: continue current tx plan. 10/24: calm, cooperative. active on unit, social with select peers, attending groups. Pt reports feeling good ; pt stated, I just want a place to live . 10/25- likely at baseline for him- CTP 10/26 CTP likely needs placement 10/27: continue current tx plan. awaiting placement. 10/28: Similar to yesterday. No change in presentation. 10/29: Pt reports feeling good ;pt stated, just waiting for a place to live . denies any issues at this time. 10/30: calm, cooperative. active on unit, social with select peers, attending groups. Pt reports feeling worried about where I am going to live . denies any issues at this time. 10/21: no change in presentation. continue current tx plan. 11/01: continue current management and treatment plan. 11/02: Continue current management and treatment plan. 11/03: Continue current management and treatment plan. 11/04: Active on unit. calm, cooperative. social with select peers, attending groups. denies any issues at this time. He reports sleeping well. Pt reports he would be interested in applying for [facility] services; social work aware. 11/05: Active on unit. calm, cooperative. social with select peers, attending groups. denies any issues at this time. Pt reports feeling okay ; he reports anxiety regarding placement. Continue current tx plan. 11/07/23 [facility] referral has appropriate concerns re living stuation cont abilify lamictal 11/08/23 Pt cooperative with care d/c planning working with sw cont d/c planning cont lamictal abilify 11/12/23 Patient increasingly despairing aware of no clear discharge plan periods needs cuing for much functioning limited social engaged needs help regarding diabetes and medication compliance reportedly had been rejected by multiple rest homes patient not threatening intermittently hopeless helpless very limited family contact at this time 11/13/23 pt flat depressed hopeless helpless unable to fx without structure 11/15 continue tx. 11/16 continue tx. 11/18/2023 Continue plan of care referral to [facility] TSH low will decrease levothyroxine 11/19/23 Pt flat dysphor ic inc hopeless helpless lamictal 150 hs dec levothyroxine 150 d/c planning cont 11/20/23 lamictal inc d/c planning [facility] referral 12/02/2023 Continue Lamictal Abilify patient cooperative with care gets despairing at times regarding lack of family support problematic discharge planning in relationship to finding suitable structured place to live 12/02: Social with peers. Per nursing, pt did not sleep last night. Pt reports he did not sleeping because he wasn't tired but feel okay ; ordered Ativan 1mg PO bedtime for tonight, pt aware. Patient educated on: diagnosis and medication risk/benefits Reason for continued inpatient stay Substantial Risk for: other (waiting on placement) Time Spent With Patient Time: Total time managing care of this patient today _20___ minutes.
[2023-12-03 12:42] LABS: Glucose, Whole Blood 163 mg/dL (60-115)
[2023-12-03] MEDS: Insulin Lispro 100 UNIT/ML 3 ML VIAL SUBCUT (12:57)
[2023-12-03] MEDS: metFORMIN HCl ER 500 MG TAB.ER.24H 1000 MG PO (18:11)
[2023-12-03 18:15] LABS: Glucose, Whole Blood 152 mg/dL (60-115)
--- NOTE | 2023-12-03 18:34 | PC.NURSE ---
Patient insulin held, currently sleeping, difficult to wake as he did not sleep last night. Did not eat dinner.
[2023-12-03] MEDS: LORazepam 1 MG TABLET PO (20:55)
[2023-12-03] MEDS: ARIPiprazole 10 MG TABLET PO (20:56)
[2023-12-03] MEDS: lamoTRIgine 100 MG TABLET 150 MG PO (20:56)
[2023-12-03] MEDS: Insulin Glargine,Hum.rec.anlog 100 UNIT/ML 10 ML VIAL 20 UNIT SUBCUT (20:59)
[2023-12-03 21:05] LABS: Glucose, Whole Blood 125 mg/dL (60-115)
[2023-12-04 09:10] LABS: Glucose, Whole Blood 107 mg/dL (60-115)
[2023-12-04] MEDS: Levothyroxine Sodium 150 MCG TABLET PO (09:22)
[2023-12-04] MEDS: Memantine HCl 5 MG TABLET PO ×2 (09:22→21:24)
[2023-12-04] MEDS: Sertraline HCL 100 MG TABLET PO (09:28)
--- NOTE | 2023-12-04 10:50 | HO.PSYCHPN ---
Subjective Subjective Date of Service: 12/04/23 Reason For Visit: paranoia cognitive impairment Subjective Notes: Conditional Voluntary Interim History: Reviewed with Dr. Gonzalez. In bed sleeping, pt reports he is catching up on sleep from the night before. Calm, cooperative. T/W and wire worker, Billie, with pt to discuss possibly going to the [facility]. Pt reports he would like to call his sister and speak to her before deciding. DC Ativan. Medication Compliance: Yes Side effects from medications: No Attending Groups: Yes Review of Systems Constitutional: Reports as per HPI Eyes: Reports as per HPI Reports as per HPI Cardiovascular: Reports as per HPI Respiratory: Reports as per HPI Gastrointestinal: Reports as per HPI Genitourinary: Reports as per HPI Musculoskeletal: Reports as per HPI Skin/Breast: Reports as per HPI Reports as per HPI Psychiatric: Reports as per HPI Endocrine: Reports as per HPI Hematologic/Lymphatic: Reports as per HPI Allergic/Immunologic: Reports as per HPI Mental Status Exam Mental Status Exam Patient Appearance: Disheveled Patient Orientation: Person, Place and Situation Level of Consciousness: Awake Patient Behavior: Appropriate and Cooperative Mood Description: Calm, Blunted and Flat Affect Description: Blunted Patient Cognition Impaired: Yes Ability to Follow Directions: Fair Speech Pattern: Clear and Soft-Spoken 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: Mcc Impaired Diagnostics Vital Signs (24Hr): BMI result Body Mass Index 31.9 Labs 09/10/23 20:00 11/28/23 07:51 Labs: Laboratory Results - last 48 hr 12/02/23 12/02/23 12/02/23 12:37 17:49 21:11 POC Glucose 218 H 101 237 H 12/03/23 12/03/23 12/03/23 08:27 12:39 18:09 POC Glucose 132 H 163 H 152 H 12/03/23 12/04/23 20:54 09:04 POC Glucose 125 H 107 Imaging Radiology Impressions: ITS Impressions Brain MRI 09/19/23 20:33 IMPRESSION: 1. No demonstrated acute intracranial abnormalities. 2. Chronic mild to moderate nonspecific white matter changes, most notably in the deep white matter of the right frontal lobe. Mild to moderate generalized cerebral volume loss. Medications Medications Current Medications Acetaminophen (Acetaminophen 325 Mg Tablet) 650 mg PO Q6H PRN PRN Reason: Headache/Pain Mild Scale (1-3) Last Admin: 08/11/24 09:39 Dose: 650 mg Al Hydroxide/Mg Hydroxide (Magnesium Hydrox/Alum Hydrox 30 Ml Oral.Susp) 30 ml PO Q6H PRN PRN Reason: Heartburn/Nausea Last Admin: 11/27/23 10:48 Dose: 30 ml Aripiprazole (Aripiprazole 10 Mg Tablet) 10 mg PO BEDTIME [facility] Last Admin: 12/03/23 20:56 Dose: 10 mg Benztropine Mesylate (Benztropine Mesylate 0.5 Mg Tablet) 0.5 mg PO TID PRN PRN Reason: Extrapyramidal Effects Glucose (Glucose Gel 15 Gm Gel..Gram.) 15 gm PO Q15M PRN; Protocol PRN Reason: per Hypoglycemia Standing Ord. Hydroxyzine HCl (Hydroxyzine Hcl 25 Mg Tablet) 25 mg PO Q6H PRN PRN Reason: Anxiety Last Admin: 12/02/23 00:02 Dose: 25 mg Dextrose (D10) 250 mls @ 750 mls/hr IV Q15M PRN; Protocol PRN Reason: per Hypoglycemia Standing Ord. Insulin Glargine (Insulin Glargine,Hum.Rec.Anlog 100 Unit/Ml 10 Ml Vial) 20 unit SUBCUT BEDTIME [facility] Last Admin: 12/03/23 20:59 Dose: 20 unit Insulin Human Lispro (Insulin Lispro 100 Unit/Ml 3 Ml Vial) 0 unit SUBCUT QIDACHS [facility]; Protocol Last Admin: 12/04/23 09:08 Dose: Not Given Lamotrigine (Lamotrigine 100 Mg Tablet) 150 mg PO BEDTIME [facility] Last Admin: 12/03/23 20:56 Dose: 150 mg Levothyroxine Sodium (Levothyroxine Sodium 150 Mcg Tablet) 150 mcg PO DAILY@0800 [facility] Last Admin: 12/04/23 09:22 Dose: 150 mcg Lorazepam (Lorazepam 1 Mg Tablet) 1 mg PO BEDTIME [facility] Last Admin: 12/03/23 20:55 Dose: 1 mg Magnesium Hydroxide (Milk Of Magnesia 30 Ml Oral.Susp) 30 ml PO DAILY PRN PRN Reason: Constipation Memantine (Memantine Hcl 5 Mg Tablet) 5 mg PO BID [facility] Last Admin: 12/04/23 09:22 Dose: 5 mg Metformin HCl (Metformin Hcl Er 500 Mg Tab.Er.24h) 1,000 mg PO DAILY@1700 [facility] Last Admin: 12/03/23 18:11 Dose: 1,000 mg Nicotine Polacrilex (Nicotine Polacrilex 2 Mg Gum) 4 mg BUCCAL Q2H PRN PRN Reason: Nicotine Cravings Ondansetron HCl (Ondansetron Odt 8 Mg Tab.Rapdis) 8 mg TRANSLINGU Q8H PRN PRN Reason: Nausea and Vomiting Last Admin: 11/27/23 10:48 Dose: 8 mg Sertraline HCl (Sertraline Hcl 100 Mg Tablet) 100 mg PO DAILY MANAS Last Admin: 12/04/23 09:28 Dose: 100 mg Simethicone (Simethicone 80 Mg Tab.Chew) 80 mg PO QIDWMHS PRN PRN Reason: Gas Trazodone HCl (Trazodone Hcl 50 Mg Tablet) 50 mg PO BEDTIME MRX1 PRN PRN Reason: Insomnia Last Admin: 12/02/23 23:29 Dose: 50 mg Allergies Allergies Allergy/AdvReac Type Severity Reaction Status Date / Time amoxicillin [AMOXICILLIN] Allergy Mild VOMITING/ABD Verified 09/10/23 19:44 PAIN Assessment & Plan Assessment & Plan (1) Schizoaffective disorder: Status: Acute Code(s): F25.9 - Schizoaffective disorder, unspecified (2) Hypothyroidism: Status: Acute Code(s): E03.9 - Hypothyroidism, unspecified (3) Type 2 diabetes mellitus: Status: Acute Code(s): E11.9 - Type 2 diabetes mellitus without complications (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 Plan: CV 15 minute safety checks Continue home medications: Haldol 10mg PO daily Synthroid 200mcg PO daily Obtain labs; A1C/POCs Obtain collateral from sister Obtain records from last hospitalization. MOCA Referral for [facility] services if patient is agreeable. encourage medication compliance;consider VARGAS discharge planning 09/11: Elevated fasting blood sugar elevated hemoglobin A1c 9.2 med consult placed put in point of care needed will start metformin Would benefit from clarity over recent hospitalization what this were done details regarding treatment continue Haldol unclear if patient has Healthcare proxy his [place] was low slowed cognition with poor details in depth at times during blankly regarding making judgments Unclear if any of this relates to past coma or 2 hypothyroidism. He does seem more impaired than when last seen unclear when last imaging was. Continue Haldol sitter neuro indira involvement regarding diagnostic picture. Patient does remain paranoid blunted suspicious apathetic. He might benefit from longer-term placement if available and appropriate at a later time involved [facility] involvement would be quite helpful 09/12: cont haldol get records ? hcp ? start antidep unclear hx 09/13: Keeping to self. More talkative today. Pt concerned he will be transferred to [facility]. Pt stated, The paper I signed yesterday. Are you going to send me back to the last hospital? That place was horrible . Pt was educated he signed a release of information with Dr. Gonzalez to obtain records from [facility]. Pt was given a copy of the release he signed. Despite this, pt continues to be anxious about being transferred. Pt denies SI/HI/VH/AH. 09/14: Keeping to self. active on unit. showered. Pt reports feeling alright today; pt reports he is worried about where I'm going to go . Pt continues concerned he will be transferred to [facility]. Pt denies SI/HI/VH/AH. 09/15:Pt reports feeling alright today; pt continues to report he is worried about where I'm going to go . Responding with brief responses. Guarded. Observed standing in one place for a long period of time. Appears confused. Pt denies SI/HI/VH/AH. T/W spoke to patient's sister, Ros, with patients verbal consent. Ros reports concerns regarding patients ability to make decisions regarding his mental and physical health. She plans on contacting legal advice on obtaining guardianship of patient. 09/16:Patient's presents similar to yesterday's presentation. Responding with brief responses. Guarded. Observed standing in one place for a long period of time, when asked what he is doing, pt stated, I don't know . Pt reports he plans on contacting his sister today and try to convince her for me to stay there . Pt denies SI/HI/VH/AH. Continue current tx plan. 09/17: brief responses. Guarded. Continues to director of assisted living one place for a long period of time, when asked what he is doing, pt stated, I don't know . Pt denies SI/HI/VH/AH. T/W and Dr. Gonzalez spoke to patient's sister, Ros. Ros stated being [facility] HCP and plans on finding document. She plans on coming to the hospital on Saturday to be present for [facility] intake. 09/21: No changes 09/22:Patient flat apathetic difficult insight and judgment his sister is healthcare proxy if needed patient is accepting medical treatment Referral to [facility] 09/23:Considers starting Haldol Decanoate patient is agreeable superficially difficulty with exec fx was seen [facility] 09/24:Pt seen in f/u mood flat dysphoric difficulty engaging in conversation preoccupied with thought he wont be living with family thing slowed apathetic no clear response with namenda ? some improvement inc lamictal start low dose sertraline inc lamictal ck tsh 09/25:Start Abilify as augmentation with Haldol see if can be more stimulating regarding depressed mood apathetic limited engagement sertraline 50 mg Lamictal 25 b.i.d. referral to [facility] which would have structure unclear if patient can engage with this he remains quite depressed has delusional beliefs regarding housing and that things have been done he has repeatedly tried to reach out to his sister denies active SI needs much help dressing talking with others encouragement to eat severe thought blocking Abilify might be more stimulating than Haldol which can be more dulling 09/26:Abilify started sertraline Lamictal encouraged step-down to [facility] encourage reality orientation denies active SI 09/27: Continue current regimen and plans 09/28: Continue current regimen and plans. 09/29: Referral to [facility] increase Abilify to 5 mg daily eventually try and taper Haldol sertraline 50 mg daily 09/30:Increase Abilify to 10 mg lower Haldol to 7 mg continue sertraline and Lamictal 10/01:Abilify increased to 10 mg continue to taper Haldol sertraline 100 mg Lamictal increased to 75 mg patient apathetic withdrawn difficulty with placement some paranoia continues difficulty with decision making at times. Not physically aggressive internally preoccupied seems somewhat improved with Abilify sertraline Continue discharge planning 10/02:Patient somewhat blunted flat slowed thinking during the day times staring. Change Abilify to 10 mg at bedtime. Scheduled Haldol will lowered to 2.5 mg Continue sertraline 100 mg Namenda 5 b.i.d. 10/03:Haldol discontinued modafinil low-dose monitor for psychosis or agitation continue discharge planning 10/06: May need to firm healthcare proxy calls have been placed to sister to try to help in discharge planning. Referrals made. Patient cooperative with care 10/07:Pharmacy ordering Abilify maintain a increase modafinil 100 mg patient remains flat passive depressed some improvement noted no current paranoia noted continue discharge planning no current safe discharge plan 10/08: Increase Lamictal 100 mg Abilify Maintena 400 mg hold modafinil unclear if was overly stimulating patient continues to present internally preoccupied. 10/09:Healthcare proxy invoked discharge planning continue Lamictal Abilify pending maintain a 10/10:Healthcare proxy invoked new CV signed discharge planning. 10/11 keep same treatment 10/12 keep same treatment 10/13: Continue plan of care Lamictal Abilify discharge planning sertraline 10/14: stable. continue current mgmt. 10/15: stable. continue current mgmt. 10/16: stable presentation. continue current mgmt. 10/17: as for yesterday. 10/18: no changes. 10/19: stabel, safe. no change. 10/20: no change in presentation. calm, cooperative. active on unit, social with select peers, attending groups. Pt reports feeling alright . denies SI/HI/VH/AH. Social work waiting to hear from possible placement location. Continue current tx plan. 10/21: continue current tx plan. awaiting placement. 10/22: calm, cooperative. active on unit, social with select peers, attending groups. Pt reports feeling good ; pt stated, I'm waiting to see where I'm going . denies SI/HI/VH/AH. Showered with encouragement. 10/23: continue current tx plan. 10/24: calm, cooperative. active on unit, social with select peers, attending groups. Pt reports feeling good ; pt stated, I just want a place to live . 10/25- likely at baseline for him- CTP 10/26 CTP likely needs placement 10/27: continue current tx plan. awaiting placement. 10/28: Similar to yesterday. No change in presentation. 10/29: Pt reports feeling good ;pt stated, just waiting for a place to live . denies any issues at this time. 10/30: calm, cooperative. active on unit, social with select peers, attending groups. Pt reports feeling worried about where I am going to live . denies any issues at this time. 10/21: no change in presentation. continue current tx plan. 11/01: continue current management and treatment plan. 11/02: Continue current management and treatment plan. 11/03: Continue current management and treatment plan. 11/04: Active on unit. calm, cooperative. social with select peers, attending groups. denies any issues at this time. He reports sleeping well. Pt reports he would be interested in applying for [facility] services; social work aware. 11/05: Active on unit. calm, cooperative. social with select peers, attending groups. denies any issues at this time. Pt reports feeling okay ; he reports anxiety regarding placement. Continue current tx plan. 11/07/23 [facility] referral has appropriate concerns re living stuation cont abilify lamictal 11/08/23 Pt cooperative with care d/c planning working with cont d/c planning cont lamictal abilify 11/12/23 Patient increasingly despairing aware of no clear discharge plan periods needs cuing for much functioning limited social engaged needs help regarding diabetes and medication compliance reportedly had been rejected by multiple rest homes patient not threatening intermittently hopeless helpless very limited family contact at this time 11/13/23 pt flat depressed hopeless helpless unable to fx without structure 11/15 continue tx. 11/16 continue tx. 11/18/2023 Continue plan of care referral to [facility] TSH low will decrease levothyroxine 11/19/23 Pt flat dysphor ic inc hopeless helpless lamictal 150 hs dec levothyroxine 150 d/c planning cont 11/20/23 lamictal inc d/c planning dmh referral 12/02/2023 Continue Lamictal Abilify patient cooperative with care gets despairing at times regarding lack of family support problematic discharge planning in relationship to finding suitable structured place to live 12/02: Social with peers. Per nursing, pt did not sleep last night. Pt reports he did not sleeping because he wasn't tired but feel okay ; ordered Ativan 1mg PO bedtime for tonight, pt aware. 12/03: In bed sleeping, pt reports he is catching up on sleep from the night before. Calm, cooperative. T/W and wire worker, Billie, with pt to discuss possibly going to the [facility]. Pt reports he would like to call his sister and speak to her before deciding. DC Ativan. Patient educated on: other Reason for continued inpatient stay Substantial Risk for: other Time Spent With Patient Time: Total time managing care of this patient today _20___ minutes.
[2023-12-04 12:41] LABS: Glucose, Whole Blood 113 mg/dL (60-115)
[2023-12-04 12:53] VITALS: BP 120/61; PULSE 77; RESP 17; TEMP 36.6; O2SAT 99
[2023-12-04 17:37] LABS: Glucose, Whole Blood 104 mg/dL (60-115)
[2023-12-04] MEDS: metFORMIN HCl ER 500 MG TAB.ER.24H 1000 MG PO (17:44)
[2023-12-04 20:53] LABS: Glucose, Whole Blood 175 mg/dL (60-115)
[2023-12-04 21:09] VITALS: BP 145/76; PULSE 86; RESP 18; TEMP 36.5; O2SAT 98
[2023-12-04] MEDS: Insulin Glargine,Hum.rec.anlog 100 UNIT/ML 10 ML VIAL 20 UNIT SUBCUT (21:21)
[2023-12-04] MEDS: Insulin Lispro 100 UNIT/ML 3 ML VIAL SUBCUT (21:22)
[2023-12-04] MEDS: ARIPiprazole 10 MG TABLET PO (21:24)
[2023-12-04] MEDS: lamoTRIgine 100 MG TABLET 150 MG PO (21:24)
[2023-12-05 07:00] VITALS: BMI 32.3
--- NOTE | 2023-12-05 09:02 | P.PNPSI_ITS ---
Subjective Subjective Date of Service: 12/05/23 Reason For Visit: paranoia cognitive impairment Subjective Notes: Conditional Voluntary Interim History: Reviewed with Dr. Gonzalez. Active on unit, social with peers. attending groups. T/W and pan tank worker, Billie, met with pt to discuss discharge plan. Pt reports he doesn't know if he would want to go to a homeless correction; he states he would rather live on the street because I've done it before . Pt encouraged to consider benefits of going to a correction with the winter coming; he agreed to doing phone intake with social services director on Saturday with Shaylee Moore. Medication Compliance: Yes Side effects from medications: No Attending Groups: Yes Review of Systems Constitutional: Reports as per HPI Eyes: Reports as per HPI Reports as per HPI Cardiovascular: Reports as per HPI Respiratory: Reports as per HPI Gastrointestinal: Reports as per HPI Genitourinary: Reports as per HPI Musculoskeletal: Reports as per HPI Skin/Breast: Reports as per HPI Reports as per HPI Psychiatric: Reports as per HPI Endocrine: Reports as per HPI Hematologic/Lymphatic: Reports as per HPI Allergic/Immunologic: Reports as per HPI Mental Status Exam Mental Status Exam Patient Appearance: Disheveled Patient Orientation: Person, Place and Situation Level of Consciousness: Awake Patient Behavior: Appropriate and Cooperative Mood Description: Calm, Blunted and Flat Affect Description: Blunted Patient Cognition Impaired: Yes Ability to Follow Directions: Fair Speech Pattern: Clear and Soft-Spoken 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: Career Information Specialist Impaired Diagnostics Vital Signs (24Hr): Vital Signs - 24 hr 12/04/23 12:53 12/04/23 21:09 Temperature 97.8 F 97.7 F Pulse Rate 77 86 Respiratory Rate 17 18 Blood Pressure 120/61 145/76 H Pulse Oximetry 99 98 Oxygen Delivery Method Room Air Room Air BMI result Body Mass Index 31.9 Labs 09/10/23 20:00 12/05/23 09:05 Labs: Laboratory Results - last 48 hr 12/03/23 12/03/23 12/03/23 12:39 18:09 20:54 POC Glucose 163 H 152 H 125 H 12/04/23 12/04/23 12/04/23 09:04 12:36 17:33 POC Glucose 107 113 104 12/04/23 20:44 POC Glucose 175 H Imaging Radiology Impressions: ITS Impressions Brain MRI 09/19/23 20:33 IMPRESSION: 1. No demonstrated acute intracranial abnormalities. 2. Chronic mild to moderate nonspecific white matter changes, most notably in the deep white matter of the right frontal lobe. Mild to moderate generalized cerebral volume loss. Medications Medications Current Medications Acetaminophen (Acetaminophen 325 Mg Tablet) 650 mg PO Q6H PRN PRN Reason: Headache/Pain Mild Scale (1-3) Last Admin: 10/13/23 09:39 Dose: 650 mg Al Hydroxide/Mg Hydroxide (Magnesium Hydrox/Alum Hydrox 30 Ml Oral.Susp) 30 ml PO Q6H PRN PRN Reason: Heartburn/Nausea Last Admin: 11/27/23 10:48 Dose: 30 ml Aripiprazole (Aripiprazole 10 Mg Tablet) 10 mg PO BEDTIME [facility] Last Admin: 12/04/23 21:24 Dose: 10 mg Benztropine Mesylate (Benztropine Mesylate 0.5 Mg Tablet) 0.5 mg PO TID PRN PRN Reason: Extrapyramidal Effects Glucose (Glucose Gel 15 Gm Gel..Gram.) 15 gm PO Q15M PRN; Protocol PRN Reason: per Hypoglycemia Standing Ord. Hydroxyzine HCl (Hydroxyzine Hcl 25 Mg Tablet) 25 mg PO Q6H PRN PRN Reason: Anxiety Last Admin: 12/02/23 00:02 Dose: 25 mg Dextrose (D10) 250 mls @ 750 mls/hr IV Q15M PRN; Protocol PRN Reason: per Hypoglycemia Standing Ord. Insulin Glargine (Insulin Glargine,Hum.Rec.Anlog 100 Unit/Ml 10 Ml Vial) 20 unit SUBCUT BEDTIME [facility] Last Admin: 12/04/23 21:21 Dose: 20 unit Insulin Human Lispro (Insulin Lispro 100 Unit/Ml 3 Ml Vial) 0 unit SUBCUT QIDACHS [facility]; Protocol Last Admin: 12/04/23 21:22 Dose: 2 unit Lamotrigine (Lamotrigine 100 Mg Tablet) 150 mg PO BEDTIME [facility] Last Admin: 12/04/23 21:24 Dose: 150 mg Levothyroxine Sodium (Levothyroxine Sodium 150 Mcg Tablet) 150 mcg PO DAILY@0800 [facility] Last Admin: 12/04/23 09:22 Dose: 150 mcg Magnesium Hydroxide (Milk Of Magnesia 30 Ml Oral.Susp) 30 ml PO DAILY PRN PRN Reason: Constipation Memantine (Memantine Hcl 5 Mg Tablet) 5 mg PO BID [facility] Last Admin: 12/04/23 21:24 Dose: 5 mg Metformin HCl (Metformin Hcl Er 500 Mg Tab.Er.24h) 1,000 mg PO DAILY@1700 [facility] Last Admin: 12/04/23 17:44 Dose: 1,000 mg Nicotine Polacrilex (Nicotine Polacrilex 2 Mg Gum) 4 mg BUCCAL Q2H PRN PRN Reason: Nicotine Cravings Ondansetron HCl (Ondansetron Odt 8 Mg Tab.Rapdis) 8 mg TRANSLINGU Q8H PRN PRN Reason: Nausea and Vomiting Last Admin: 11/27/23 10:48 Dose: 8 mg Sertraline HCl (Sertraline Hcl 100 Mg Tablet) 100 mg PO DAILY [facility] Last Admin: 12/04/23 09:28 Dose: 100 mg Simethicone (Simethicone 80 Mg Tab.Chew) 80 mg PO QIDWMHS PRN PRN Reason: Gas Trazodone HCl (Trazodone Hcl 50 Mg Tablet) 50 mg PO BEDTIME MRX1 PRN PRN Reason: Insomnia Last Admin: 12/02/23 23:29 Dose: 50 mg Allergies Allergies Allergy/AdvReac Type Severity Reaction Status Date / Time amoxicillin [AMOXICILLIN] Allergy Mild VOMITING/ABD Verified 09/10/23 19:44 PAIN Assessment & Plan Assessment & Plan (1) Schizoaffective disorder: Status: Acute Code(s): F25.9 - Schizoaffective disorder, unspecified (2) Hypothyroidism: Status: Acute Code(s): E03.9 - Hypothyroidism, unspecified (3) Type 2 diabetes mellitus: Status: Acute Code(s): E11.9 - Type 2 diabetes mellitus without complications (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 Plan: CV 15 minute safety checks Continue home medications: Haldol 10mg PO daily Synthroid 200mcg PO daily Obtain labs; A1C/POCs Obtain collateral from sister Obtain records from last hospitalization. MOCA Referral for [facility] services if patient is agreeable. encourage medication compliance;consider VARGAS discharge planning 09/11: Elevated fasting blood sugar elevated hemoglobin A1c 9.2 med consult placed put in point of care needed will start metformin Would benefit from clarity over recent hospitalization what this were done details regarding treatment continue Haldol unclear if patient has Healthcare proxy his [place] was low slowed cognition with poor details in depth at times during blankly regarding making judgments Unclear if any of this relates to past coma or 2 hypothyroidism. He does seem more impaired than when last seen unclear when last imaging was. Continue Haldol sitter neuro indira involvement regarding diagnostic picture. Patient does remain paranoid blunted suspicious apathetic. He might benefit from longer- term placement if available and appropriate at a later time involved [facility] involvement would be quite helpful 09/12: cont haldol get records ? hcp ? start antidep unclear hx 09/13: Keeping to self. More talkative today. Pt concerned he will be transferred to [facility]. Pt stated, The paper I signed yesterday. Are you going to send me back to the last hospital? That place was horrible . Pt was educated he signed a release of information with Dr. Gonzalez to obtain records from [facility]. Pt was given a copy of the release he signed. Despite this, pt continues to be anxious about being transferred. Pt denies SI/HI/VH/AH. 09/14: Keeping to self. active on unit. showered. Pt reports feeling alright today; pt reports he is worried about where I'm going to go . Pt continues concerned he will be transferred to [facility]. Pt denies SI/HI/VH/AH. 09/15:Pt reports feeling alright today; pt continues to report he is worried about where I'm going to go . Responding with brief responses. Guarded. Observed standing in one place for a long period of time. Appears confused. Pt denies SI/HI/VH/AH. T/W spoke to patient's sister, Ros, with patients verbal consent. Ros reports concerns regarding patients ability to make decisions regarding his mental and physical health. She plans on contacting legal advice on obtaining guardianship of patient. 09/16:Patient's presents similar to yesterday's presentation. Responding with brief responses. Guarded. Observed standing in one place for a long period of time, when asked what he is doing, pt stated, I don't know . Pt reports he plans on contacting his sister today and try to convince her for me to stay there . Pt denies SI/HI/VH/AH. Continue current tx plan. 09/17: brief responses. Guarded. 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 Pt denies SI/HI/VH/AH. T/W and Dr. Gonzalez spoke to patient's sister, Ros. Ros stated being [facility] HCP and plans on finding document. She plans on coming to the hospital on Saturday to be present for [facility] intake. 09/21: No changes 09/22:Patient flat apathetic difficult insight and judgment his sister is healthcare proxy if needed patient is accepting medical treatment Referral to [facility] 09/23:Considers starting Haldol Decanoate patient is agreeable superficially difficulty with exec fx was seen [facility] 09/24:Pt seen in f/u mood flat dysphoric difficulty engaging in conversation preoccupied with thought he wont be living with family thing slowed apathetic no clear response with namenda ? some improvement inc lamictal start low dose sertraline inc lamictal ck tsh 09/25:Start Abilify as augmentation with Haldol see if can be more stimulating regarding depressed mood apathetic limited engagement sertraline 50 mg Lamictal 25 b.i.d. referral to [facility] which would have structure unclear if patient can engage with this he remains quite depressed has delusional beliefs regarding housing and that things have been done he has repeatedly tried to reach out to his sister denies active SI needs much help dressing talking with others encouragement to eat severe thought blocking Abilify might be more stimulating than Haldol which can be more dulling 09/26:Abilify started sertraline Lamictal encouraged step-down to [facility] encourage reality orientation denies active SI 09/27: Continue current regimen and plans 09/28: Continue current regimen and plans. 09/29: Referral to [facility] increase Abilify to 5 mg daily eventually try and taper Haldol sertraline 50 mg daily 09/30:Increase Abilify to 10 mg lower Haldol to 7 mg continue sertraline and Lamictal 10/01:Abilify increased to 10 mg continue to taper Haldol sertraline 100 mg Lamictal increased to 75 mg patient apathetic withdrawn difficulty with placement some paranoia continues difficulty with decision making at times. Not physically aggressive internally preoccupied seems somewhat improved with Abilify sertraline Continue discharge planning 10/02:Patient somewhat blunted flat slowed thinking during the day times staring. Change Abilify to 10 mg at bedtime. Scheduled Haldol will lowered to 2.5 mg Continue sertraline 100 mg Namenda 5 b.i.d. 10/03:Haldol discontinued modafinil low-dose monitor for psychosis or agitation continue discharge planning 10/06: May need to firm healthcare proxy calls have been placed to sister to try to help in discharge planning. Referrals made. Patient cooperative with care 10/07:Pharmacy ordering Abilify maintain a increase modafinil 100 mg patient remains flat passive depressed some improvement noted no current paranoia noted continue discharge planning no current safe discharge plan 10/08: Increase Lamictal 100 mg Abilify Maintena 400 mg hold modafinil unclear if was overly stimulating patient continues to present internally preoccupied. 10/09:Healthcare proxy invoked discharge planning continue Lamictal Abilify pending maintain a 10/10:Healthcare proxy invoked new CV signed discharge planning. 10/11 keep same treatment 10/12 keep same treatment 10/13: Continue plan of care Lamictal Abilify discharge planning sertraline 10/14: stable. continue current mgmt. 10/15: stable. continue current mgmt. 10/16: stable presentation. continue current mgmt. 10/17: as for yesterday. 10/18: no changes. 10/19: stabel, safe. no change. 10/20: no change in presentation. calm, cooperative. active on unit, social with select peers, attending groups. Pt reports feeling alright . denies SI/HI/VH/AH. Social work waiting to hear from possible placement location. Continue current tx plan. 10/21: continue current tx plan. awaiting placement. 10/22: calm, cooperative. active on unit, social with select peers, attending groups. Pt reports feeling good ; pt stated, I'm waiting to see where I'm going . denies SI/HI/VH/AH. Showered with encouragement. 10/23: continue current tx plan. 10/24: calm, cooperative. active on unit, social with select peers, attending groups. Pt reports feeling good ; pt stated, I just want a place to live . 10/25- likely at baseline for him- CTP 10/26 CTP likely needs placement 10/27: continue current tx plan. awaiting placement. 10/28: Similar to yesterday. No change in presentation. 10/29: Pt reports feeling good ;pt stated, just waiting for a place to live . denies any issues at this time. 10/30: calm, cooperative. active on unit, social with select peers, attending groups. Pt reports feeling worried about where I am going to live . denies any issues at this time. 10/21: no change in presentation. continue current tx plan. 11/01: continue current management and treatment plan. 11/02: Continue current management and treatment plan. 11/03: Continue current management and treatment plan. 11/04: Active on unit. calm, cooperative. social with select peers, attending groups. denies any issues at this time. He reports sleeping well. Pt reports he would be interested in applying for [facility] services; social work aware. 11/05: Active on unit. calm, cooperative. social with select peers, attending groups. denies any issues at this time. Pt reports feeling okay ; he reports anxiety regarding placement. Continue current tx plan. 11/07/23 [facility]H referral has appropriate concerns re living stuation cont abilify lamictal 11/08/23 Pt cooperative with care d/c planning working with sw cont d/c planning cont lamictal abilify 11/12/23 Patient increasingly despairing aware of no clear discharge plan periods needs cuing for much functioning limited social engaged needs help regarding diabetes and medication compliance reportedly had been rejected by multiple rest homes patient not threatening intermittently hopeless helpless very limited family contact at this time 11/13/23 pt flat depressed hopeless helpless unable to fx without structure 11/15 continue tx. 11/16 continue tx. 11/18/2023 Continue plan of care referral to [facility] TSH low will decrease levothyroxine 11/19/23 Pt flat dysphor ic inc hopeless helpless lamictal 150 hs dec levothyroxine 150 d/c planning cont 11/20/23 lamictal inc d/c planning dm referral 12/02/2023 Continue Lamictal Abilify patient cooperative with care gets despairing at times regarding lack of family support problematic discharge planning in relationship to finding suitable structured place to live 12/02: Social with peers. Per nursing, pt did not sleep last night. Pt reports he did not sleeping because he wasn't tired but feel okay ; ordered Ativan 1mg PO bedtime for tonight, pt aware. 12/03: In bed sleeping, pt reports he is catching up on sleep from the night before. Calm, cooperative. T/W and pan tank worker, Billie, with pt to discuss possibly going to the [facility]. Pt reports he would like to call his sister and speak to her before deciding. DC Ativan. 12/04: Active on unit, social with peers. attending groups. T/W and pan tank worker, Billie, met with pt to discuss discharge plan. Pt reports he doesn't know if he would want to go to a homeless correction; he states he would rather live on the street because I've done it before . Pt encouraged to consider benefits of going to a correction with the winter months coming; he agreed to doing phone intake with social services director on Saturday with [facility]. Patient educated on: other Reason for continued inpatient stay Substantial Risk for: other Time Spent With Patient Time: Total time managing care of this patient today _20___ minutes.
[2023-12-05 09:03] LABS: Glucose, Whole Blood 103 mg/dL (60-115)
[2023-12-05] MEDS: Memantine HCl 5 MG TABLET PO ×2 (09:10→21:30)
[2023-12-05] MEDS: Sertraline HCL 100 MG TABLET PO (09:10)
[2023-12-05] MEDS: Levothyroxine Sodium 150 MCG TABLET PO (09:10)
[2023-12-05 09:32] LABS: Creatinine Clr Calc Pharmacy 113.9; Estimated Glomerular Filt Rate > 60
[2023-12-05 12:33] VITALS: BP 134/71; PULSE 82; RESP 16; TEMP 36.4; O2SAT 98
[2023-12-05 12:53] LABS: Glucose, Whole Blood 115 mg/dL (60-115)
[2023-12-05 17:50] LABS: Glucose, Whole Blood 144 mg/dL (60-115)
[2023-12-05] MEDS: metFORMIN HCl ER 500 MG TAB.ER.24H 1000 MG PO (17:51)
[2023-12-05 19:35] VITALS: BP 127/67; PULSE 80; RESP 16; TEMP 37.1; O2SAT 97
[2023-12-05 20:50] LABS: Glucose, Whole Blood 181 mg/dL (60-115)
[2023-12-05] MEDS: Insulin Lispro 100 UNIT/ML 3 ML VIAL SUBCUT (21:28)
[2023-12-05] MEDS: Insulin Glargine,Hum.rec.anlog 100 UNIT/ML 10 ML VIAL 20 UNIT SUBCUT (21:28)
[2023-12-05] MEDS: lamoTRIgine 100 MG TABLET 150 MG PO (21:29)
[2023-12-05] MEDS: ARIPiprazole 10 MG TABLET PO (21:30)
[2023-12-06 08:00] VITALS: BP 117/72; PULSE 73; RESP 14; TEMP 36.5; O2SAT 95
--- NOTE | 2023-12-06 08:42 | HO.PSYCHPN ---
Subjective Subjective Date of Service: 12/06/23 Reason For Visit: paranoia cognitive impairment Subjective Notes: Conditional Voluntary Interim History: Reviewed with Dr. Gonzalez. Pt presents similar to yesterday. Continues to perseverate about [facility] being a longterm and not a program; He continues to agree to do phone intake on Saturday. Discussed VARGAS, pt reports he want time to consider d/t not liking needles . Medication Compliance: Yes Side effects from medications: No Attending Groups: Yes Review of Systems Constitutional: Reports as per HPI Eyes: Reports as per HPI Reports as per HPI Cardiovascular: Reports as per HPI Respiratory: Reports as per HPI Gastrointestinal: Reports as per HPI Genitourinary: Reports as per HPI Musculoskeletal: Reports as per HPI Skin/Breast: Reports as per HPI Reports as per HPI Psychiatric: Reports as per HPI Endocrine: Reports as per HPI Hematologic/Lymphatic: Reports as per HPI Allergic/Immunologic: Reports as per HPI Mental Status Exam Mental Status Exam Patient Appearance: Disheveled Patient Orientation: Person, Place and Situation Level of Consciousness: Awake Patient Behavior: Appropriate and Cooperative Mood Description: Calm, Blunted and Flat Affect Description: Blunted Patient Cognition Impaired: Yes Ability to Follow Directions: Fair Speech Pattern: Clear and Soft-Spoken 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: 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 Diagnostics Vital Signs (24Hr): Vital Signs - 24 hr 12/05/23 12:33 12/05/23 19:35 12/06/23 08:00 Temperature 97.5 F 98.7 F 97.7 F Pulse Rate 82 80 73 Respiratory Rate 16 16 14 Blood Pressure 134/71 127/67 117/72 Pulse Oximetry 98 97 95 Oxygen Delivery Method Room Air Room Air Room Air BMI result Body Mass Index 32.3 Labs 09/10/23 20:00 12/05/23 09:05 Labs: Laboratory Results - last 48 hr 12/04/23 12/04/23 12/04/23 09:04 12:36 17:33 Creatinine Estim Creat Clear Calc Estimated GFR POC Glucose 107 113 104 12/04/23 12/05/23 12/05/23 20:44 08:58 09:05 Creatinine 0.81 Estim Creat Clear Calc 113.9 Estimated GFR > 60 POC Glucose 175 H 103 12/05/23 12/05/23 12/05/23 12:49 17:46 20:31 Creatinine Estim Creat Clear Calc Estimated GFR POC Glucose 115 144 H 181 H Imaging Radiology Impressions: ITS Impressions Brain MRI 09/19/23 20:33 IMPRESSION: 1. No demonstrated acute intracranial abnormalities. 2. Chronic mild to moderate nonspecific white matter changes, most notably in the deep white matter of the right frontal lobe. Mild to moderate generalized cerebral volume loss. Medications Medications Current Medications Acetaminophen (Acetaminophen 325 Mg Tablet) 650 mg PO Q6H PRN PRN Reason: Headache/Pain Mild Scale (1-3) Last Admin: 10/13/23 09:39 Dose: 650 mg Al Hydroxide/Mg Hydroxide (Magnesium Hydrox/Alum Hydrox 30 Ml Oral.Susp) 30 ml PO Q6H PRN PRN Reason: Heartburn/Nausea Last Admin: 11/27/23 10:48 Dose: 30 ml Aripiprazole (Aripiprazole 10 Mg Tablet) 10 mg PO BEDTIME [facility] Last Admin: 12/05/23 21:30 Dose: 10 mg Benztropine Mesylate (Benztropine Mesylate 0.5 Mg Tablet) 0.5 mg PO TID PRN PRN Reason: Extrapyramidal Effects Glucose (Glucose Gel 15 Gm Gel..Gram.) 15 gm PO Q15M PRN; Protocol PRN Reason: per Hypoglycemia Standing Ord. Hydroxyzine HCl (Hydroxyzine Hcl 25 Mg Tablet) 25 mg PO Q6H PRN PRN Reason: Anxiety Last Admin: 12/02/23 00:02 Dose: 25 mg Dextrose (D10) 250 mls @ 750 mls/hr IV Q15M PRN; Protocol PRN Reason: per Hypoglycemia Standing Ord. Insulin Glargine (Insulin Glargine,Hum.Rec.Anlog 100 Unit/Ml 10 Ml Vial) 20 unit SUBCUT BEDTIME [facility] Last Admin: 12/05/23 21:28 Dose: 20 unit Insulin Human Lispro (Insulin Lispro 100 Unit/Ml 3 Ml Vial) 0 unit SUBCUT QIDACHS [facility]; Protocol Last Admin: 12/05/23 21:28 Dose: 2 unit Lamotrigine (Lamotrigine 100 Mg Tablet) 150 mg PO BEDTIME [facility] Last Admin: 12/05/23 21:29 Dose: 150 mg Levothyroxine Sodium (Levothyroxine Sodium 150 Mcg Tablet) 150 mcg PO DAILY@0800 [facility] Last Admin: 12/05/23 09:10 Dose: 150 mcg Magnesium Hydroxide (Milk Of Magnesia 30 Ml Oral.Susp) 30 ml PO DAILY PRN PRN Reason: Constipation Memantine (Memantine Hcl 5 Mg Tablet) 5 mg PO BID [facility] Last Admin: 12/05/23 21:30 Dose: 5 mg Metformin HCl (Metformin Hcl Er 500 Mg Tab.Er.24h) 1,000 mg PO DAILY@1700 [facility] Last Admin: 12/05/23 17:51 Dose: 1,000 mg Nicotine Polacrilex (Nicotine Polacrilex 2 Mg Gum) 4 mg BUCCAL Q2H PRN PRN Reason: Nicotine Cravings Ondansetron HCl (Ondansetron Odt 8 Mg Tab.Rapdis) 8 mg TRANSLINGU Q8H PRN PRN Reason: Nausea and Vomiting Last Admin: 11/27/23 10:48 Dose: 8 mg Sertraline HCl (Sertraline Hcl 100 Mg Tablet) 100 mg PO DAILY [facility] Last Admin: 12/05/23 09:10 Dose: 100 mg Simethicone (Simethicone 80 Mg Tab.Chew) 80 mg PO QIDWMHS PRN PRN Reason: Gas Trazodone HCl (Trazodone Hcl 50 Mg Tablet) 50 mg PO BEDTIME MRX1 PRN PRN Reason: Insomnia Last Admin: 12/02/23 23:29 Dose: 50 mg Allergies Allergies Allergy/AdvReac Type Severity Reaction Status Date / Time amoxicillin [AMOXICILLIN] Allergy Mild VOMITING/ABD Verified 09/10/23 19:44 PAIN Assessment & Plan Assessment & Plan (1) Schizoaffective disorder: Status: Acute Code(s): F25.9 - Schizoaffective disorder, unspecified (2) Hypothyroidism: Status: Acute Code(s): E03.9 - Hypothyroidism, unspecified (3) Type 2 diabetes mellitus: Status: Acute Code(s): E11.9 - Type 2 diabetes mellitus without complications (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 ER on a [address] d/t disorganized behavior, concern for his memory impairment, medications noncompliance and poor ADLs. Plan: CV 15 minute safety checks Continue home medications: Haldol 10mg PO daily Synthroid 200mcg PO daily Obtain labs; A1C/POCs Obtain collateral from sister Obtain records from last hospitalization. MOCA Referral for DMH services if patient is agreeable. encourage medication compliance;consider VARGAS discharge planning 09/11: Elevated fasting blood sugar elevated hemoglobin A1c 9.2 med consult placed put in point of care needed will start metformin Would benefit from clarity over recent hospitalization what this were done details regarding treatment continue Haldol unclear if patient has Healthcare proxy his [place] was low slowed cognition with poor details in depth at times during blankly regarding making judgments Unclear if any of this relates to past coma or 2 hypothyroidism. He does seem more impaired than when last seen unclear when last imaging was. Continue Haldol sitter neuro indira involvement regarding diagnostic picture. Patient does remain paranoid blunted suspicious apathetic. He might benefit from longer-term placement if available and appropriate at a later time involved DMH involvement would be quite helpful 09/12: cont haldol get records ? hcp ? start antidep unclear hx 09/13: Keeping to self. More talkative today. Pt concerned he will be transferred to [facility]. Pt stated, The paper I signed yesterday. Are you going to send me back to the last hospital? That place was horrible . Pt was educated he signed a release of information with Dr. Gonzalez to obtain records from [facility]. Pt was given a copy of the release he signed. Despite this, pt continues to be anxious about being transferred. Pt denies SI/HI/VH/AH. 09/14: Keeping to self. active on unit. showered. Pt reports feeling alright today; pt reports he is worried about where I'm going to go . Pt continues concerned he will be transferred to [facility]. Pt denies SI/HI/VH/AH. 09/15:Pt reports feeling alright today; pt continues to report he is worried about where I'm going to go . Responding with brief responses. Guarded. Observed standing in one place for a long period of time. Appears confused. Pt denies SI/HI/VH/AH. T/W spoke to patient's sister, Ros, with patients verbal consent. Ros reports concerns regarding patients ability to make decisions regarding his mental and physical health. She plans on contacting legal advice on obtaining guardianship of patient. 09/16:Patient's presents similar to yesterday's presentation. Responding with brief responses. Guarded. Observed standing in one place for a long period of time, when asked what he is doing, pt stated, I don't know . Pt reports he plans on contacting his sister today and try to convince her for me to stay there . Pt denies SI/HI/VH/AH. Continue current tx plan. 09/17: brief responses. Guarded. 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 Pt denies SI/HI/VH/AH. T/W and Dr. Gonzalez spoke to patient's sister, Ros. Ros stated being [facility] HCP and plans on finding document. She plans on coming to the hospital on Saturday to be present for [facility] intake. 09/21: No changes 09/22:Patient flat apathetic difficult insight and judgment his sister is healthcare proxy if needed patient is accepting medical treatment Referral to [facility] 09/23:Considers starting Haldol Decanoate patient is agreeable superficially difficulty with exec fx was seen [facility] 09/24:Pt seen in f/u mood flat dysphoric difficulty engaging in conversation preoccupied with thought he wont be living with family thing slowed apathetic no clear response with namenda ? some improvement inc lamictal start low dose sertraline inc lamictal ck tsh 09/25:Start Abilify as augmentation with Haldol see if can be more stimulating regarding depressed mood apathetic limited engagement sertraline 50 mg Lamictal 25 b.i.d. referral to [facility] which would have structure unclear if patient can engage with this he remains quite depressed has delusional beliefs regarding housing and that things have been done he has repeatedly tried to reach out to his sister denies active SI needs much help dressing talking with others encouragement to eat severe thought blocking Abilify might be more stimulating than Haldol which can be more dulling 09/26:Abilify started sertraline Lamictal encouraged step-down to [facility] encourage reality orientation denies active SI 09/27: Continue current regimen and plans 09/28: Continue current regimen and plans. 09/29: Referral to [facility] increase Abilify to 5 mg daily eventually try and taper Haldol sertraline 50 mg daily 09/30:Increase Abilify to 10 mg lower Haldol to 7 mg continue sertraline and Lamictal 10/01:Abilify increased to 10 mg continue to taper Haldol sertraline 100 mg Lamictal increased to 75 mg patient apathetic withdrawn difficulty with placement some paranoia continues difficulty with decision making at times. Not physically aggressive internally preoccupied seems somewhat improved with Abilify sertraline Continue discharge planning 10/02:Patient somewhat blunted flat slowed thinking during the day times staring. Change Abilify to 10 mg at bedtime. Scheduled Haldol will lowered to 2.5 mg Continue sertraline 100 mg Namenda 5 b.i.d. 10/03:Haldol discontinued modafinil low-dose monitor for psychosis or agitation continue discharge planning 10/06: May need to firm healthcare proxy calls have been placed to sister to try to help in discharge planning. Referrals made. Patient cooperative with care 10/07:Pharmacy ordering Abilify maintain a increase modafinil 100 mg patient remains flat passive depressed some improvement noted no current paranoia noted continue discharge planning no current safe discharge plan 10/08: Increase Lamictal 100 mg Abilify Maintena 400 mg hold modafinil unclear if was overly stimulating patient continues to present internally preoccupied. 10/09:Healthcare proxy invoked discharge planning continue Lamictal Abilify pending maintain a 10/10:Healthcare proxy invoked new CV signed discharge planning. 10/11 keep same treatment 10/12 keep same treatment 10/13: Continue plan of care Lamictal Abilify discharge planning sertraline 10/14: stable. continue current mgmt. 10/15: stable. continue current mgmt. 10/16: stable presentation. continue current mgmt. 10/17: as for yesterday. 10/18: no changes. 10/19: stabel, safe. no change. 10/20: no change in presentation. calm, cooperative. active on unit, social with select peers, attending groups. Pt reports feeling alright . denies SI/HI/VH/AH. Social work waiting to hear from possible placement location. Continue current tx plan. 10/21: continue current tx plan. awaiting placement. 10/22: calm, cooperative. active on unit, social with select peers, attending groups. Pt reports feeling good ; pt stated, I'm waiting to see where I'm going . denies SI/HI/VH/AH. Showered with encouragement. 10/23: continue current tx plan. 10/24: calm, cooperative. active on unit, social with select peers, attending groups. Pt reports feeling good ; pt stated, I just want a place to live . 10/25- likely at baseline for him- CTP 10/26 CTP likely needs placement 10/27: continue current tx plan. awaiting placement. 10/28: Similar to yesterday. No change in presentation. 10/29: Pt reports feeling good ;pt stated, just waiting for a place to live . denies any issues at this time. 10/30: calm, cooperative. active on unit, social with select peers, attending groups. Pt reports feeling worried about where I am going to live . denies any issues at this time. 10/21: no change in presentation. continue current tx plan. 11/01: continue current management and treatment plan. 11/02: Continue current management and treatment plan. 11/03: Continue current management and treatment plan. 11/04: Active on unit. calm, cooperative. social with select peers, attending groups. denies any issues at this time. He reports sleeping well. Pt reports he would be interested in applying for DMH services; social work aware. 11/05: Active on unit. calm, cooperative. social with select peers, attending groups. denies any issues at this time. Pt reports feeling okay ; he reports anxiety regarding placement. Continue current tx plan. 11/07/23 DMH referral has appropriate concerns re living stuation cont abilify lamictal 11/08/23 Pt cooperative with care d/c planning working with sw cont d/c planning cont lamictal abilify 11/12/23 Patient increasingly despairing aware of no clear discharge plan periods needs cuing for much functioning limited social engaged needs help regarding diabetes and medication compliance reportedly had been rejected by multiple rest homes patient not threatening intermittently hopeless helpless very limited family contact at this time 11/13/23 pt flat depressed hopeless helpless unable to fx without structure 11/15 continue tx. 11/16 continue tx. 11/18/2023 Continue plan of care referral to [facility] TSH low will decrease levothyroxine 11/19/23 Pt flat dysphor ic inc hopeless helpless lamictal 150 hs dec levothyroxine 150 d/c planning cont 11/20/23 lamictal inc d/c planning [facility] referral 12/02/2023 Continue Lamictal Abilify patient cooperative with care gets despairing at times regarding lack of family support problematic discharge planning in relationship to finding suitable structured place to live 12/02: Social with peers. Per nursing, pt did not sleep last night. Pt reports he did not sleeping because he wasn't tired but feel okay ; ordered Ativan 1mg PO bedtime for tonight, pt aware. 12/03: In bed sleeping, pt reports he is catching up on sleep from the night before. Calm, cooperative. T/W and trim line worker, Billie, with pt to discuss possibly going to the [employer]. Pt reports he would like to call his sister and speak to her before deciding. DC Ativan. 12/04: Active on unit, social with peers. attending groups. T/W and trim line workerBillie, met with pt to discuss discharge plan. Pt reports he doesn't know if he would want to go to a homeless longterm; he states he would rather live on the street because I've done it before . Pt encouraged to consider benefits of going to a longterm with the winter months coming; he agreed to doing phone intake with adoption social worker on Saturday with [facility]. 12/05: Pt presents similar to yesterday. Continues to perseverate about [facility] being a longterm and not a program; He continues to agree to do phone intake on Saturday. Discussed VARGAS, pt reports he want time to consider d/t not liking needles . Patient educated on: other Reason for continued inpatient stay Substantial Risk for: other Time Spent With Patient Time: Total time managing care of this patient today _20___ minutes.
[2023-12-06 08:47] LABS: Glucose, Whole Blood 103 mg/dL (60-115)
[2023-12-06] MEDS: Sertraline HCL 100 MG TABLET PO (09:17)
[2023-12-06] MEDS: Memantine HCl 5 MG TABLET PO ×2 (09:17→21:31)
[2023-12-06] MEDS: Levothyroxine Sodium 150 MCG TABLET PO (09:18)
[2023-12-06 12:30] LABS: Glucose, Whole Blood 207 mg/dL (60-115)
[2023-12-06] MEDS: Insulin Lispro 100 UNIT/ML 3 ML VIAL SUBCUT ×3 (13:16→21:28)
[2023-12-06 17:51] LABS: Glucose, Whole Blood 153 mg/dL (60-115)
[2023-12-06] MEDS: metFORMIN HCl ER 500 MG TAB.ER.24H 1000 MG PO (18:13)
[2023-12-06 20:00] VITALS: BP 119/76; PULSE 80; RESP 16; TEMP 36.6; O2SAT 98
[2023-12-06 20:18] LABS: Glucose, Whole Blood 176 mg/dL (60-115)
[2023-12-06] MEDS: Insulin Glargine,Hum.rec.anlog 100 UNIT/ML 10 ML VIAL 20 UNIT SUBCUT (21:29)
[2023-12-06] MEDS: ARIPiprazole 10 MG TABLET PO (21:31)
[2023-12-06] MEDS: lamoTRIgine 100 MG TABLET 150 MG PO (21:31)
[2023-12-06] MEDS: traZODone HCL 50 MG TABLET PO (21:40)
[2023-12-07 07:26] LABS: Glucose, Whole Blood 106 mg/dL (60-115)
[2023-12-07 07:45] VITALS: BP 146/83; PULSE 71; RESP 14; TEMP 36.4; O2SAT 98
[2023-12-07] MEDS: Sertraline HCL 100 MG TABLET PO (08:24)
[2023-12-07] MEDS: Levothyroxine Sodium 150 MCG TABLET PO (08:24)
[2023-12-07] MEDS: Memantine HCl 5 MG TABLET PO ×2 (08:24→21:17)
--- NOTE | 2023-12-07 08:35 | P.PNPSI_ITS ---
Subjective Subjective Date of Service: 12/07/23 Reason For Visit: paranoia cognitive impairment Subjective Notes: Conditional Voluntary Healthcare Proxy: No Guardianship: No Medical Problems Affecting Mental Status: No Interim History: 58 yo WM stable from schizoaffective disorder but now has nowhere to be dced to - and not able to arrange this himself - so continues here pending placement- denying any issue with dep/anxiety/psychosis continues poorly kempt -playing cards with nurse- Medication Compliance: Yes Side effects from medications: No Attending Groups: Yes Review of Systems Acute medical concerns: No Medical Review of Systems: unchanged Mental Status Exam Mental Status Exam Patient Appearance: Disheveled Patient Orientation: Person, Place and Situation Level of Consciousness: Awake Patient Behavior: Appropriate and Cooperative Mood Description: Calm, Blunted and Flat Affect Description: Blunted Patient Cognition Impaired: Yes Ability to Follow Directions: Fair Speech Pattern: Clear and Soft-Spoken 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: Division Service Manager Impaired Diagnostics Vital Signs (24Hr): Vital Signs - 24 hr 12/06/23 20:00 12/07/23 07:45 Temperature 98 F 97.6 F Pulse Rate 80 71 Respiratory Rate 16 14 Blood Pressure 119/76 146/83 H Pulse Oximetry 98 98 Oxygen Delivery Method Room Air Room Air BMI result Body Mass Index 32.3 Labs 09/10/23 20:00 12/05/23 09:05 Labs: Laboratory Results - last 48 hr 12/05/23 12/05/23 12/05/23 08:58 09:05 12:49 Creatinine 0.81 Estim Creat Clear Calc 113.9 Estimated GFR > 60 POC Glucose 103 115 12/05/23 12/05/23 12/06/23 17:46 20:31 08:37 Creatinine Estim Creat Clear Calc Estimated GFR POC Glucose 144 H 181 H 103 12/06/23 12/06/23 12/06/23 12:25 17:47 20:14 Creatinine Estim Creat Clear Calc Estimated GFR POC Glucose 207 H 153 H 176 H 12/07/23 07:19 Creatinine Estim Creat Clear Calc Estimated GFR POC Glucose 106 Imaging Radiology Impressions: ITS Impressions Brain MRI 09/19/23 20:33 IMPRESSION: 1. No demonstrated acute intracranial abnormalities. 2. Chronic mild to moderate nonspecific white matter changes, most notably in the deep white matter of the right frontal lobe. Mild to moderate generalized cerebral volume loss. Medications Medications Current Medications Acetaminophen (Acetaminophen 325 Mg Tablet) 650 mg PO Q6H PRN PRN Reason: Headache/Pain Mild Scale (1-3) Last Admin: 10/13/23 09:39 Dose: 650 mg Al Hydroxide/Mg Hydroxide (Magnesium Hydrox/Alum Hydrox 30 Ml Oral.Susp) 30 ml PO Q6H PRN PRN Reason: Heartburn/Nausea Last Admin: 11/27/23 10:48 Dose: 30 ml Aripiprazole (Aripiprazole 10 Mg Tablet) 10 mg PO BEDTIME [facility] Last Admin: 12/06/23 21:31 Dose: 10 mg Benztropine Mesylate (Benztropine Mesylate 0.5 Mg Tablet) 0.5 mg PO TID PRN PRN Reason: Extrapyramidal Effects Glucose (Glucose Gel 15 Gm Gel..Gram.) 15 gm PO Q15M PRN; Protocol PRN Reason: per Hypoglycemia Standing Ord. Hydroxyzine HCl (Hydroxyzine Hcl 25 Mg Tablet) 25 mg PO Q6H PRN PRN Reason: Anxiety Last Admin: 12/02/23 00:02 Dose: 25 mg Dextrose (D10) 250 mls @ 750 mls/hr IV Q15M PRN; Protocol PRN Reason: per Hypoglycemia Standing Ord. Insulin Glargine (Insulin Glargine,Hum.Rec.Anlog 100 Unit/Ml 10 Ml Vial) 20 unit SUBCUT BEDTIME [facility] Last Admin: 12/06/23 21:29 Dose: 20 unit Insulin Human Lispro (Insulin Lispro 100 Unit/Ml 3 Ml Vial) 0 unit SUBCUT QIDACHS [facility]; Protocol Last Admin: 12/06/23 21:28 Dose: 2 unit Lamotrigine (Lamotrigine 100 Mg Tablet) 150 mg PO BEDTIME [facility] Last Admin: 12/06/23 21:31 Dose: 150 mg Levothyroxine Sodium (Levothyroxine Sodium 150 Mcg Tablet) 150 mcg PO DAILY@0800 [facility] Last Admin: 12/07/23 08:24 Dose: 150 mcg Magnesium Hydroxide (Milk Of Magnesia 30 Ml Oral.Susp) 30 ml PO DAILY PRN PRN Reason: Constipation Memantine (Memantine Hcl 5 Mg Tablet) 5 mg PO BID [facility] Last Admin: 12/07/23 08:24 Dose: 5 mg Metformin HCl (Metformin Hcl Er 500 Mg Tab.Er.24h) 1,000 mg PO DAILY@1700 [facility] Last Admin: 12/06/23 18:13 Dose: 1,000 mg Nicotine Polacrilex (Nicotine Polacrilex 2 Mg Gum) 4 mg BUCCAL Q2H PRN PRN Reason: Nicotine Cravings Ondansetron HCl (Ondansetron Odt 8 Mg Tab.Rapdis) 8 mg TRANSLINGU Q8H PRN PRN Reason: Nausea and Vomiting Last Admin: 11/27/23 10:48 Dose: 8 mg Sertraline HCl (Sertraline Hcl 100 Mg Tablet) 100 mg PO DAILY [facility] Last Admin: 12/07/23 08:24 Dose: 100 mg Simethicone (Simethicone 80 Mg Tab.Chew) 80 mg PO QIDWMHS PRN PRN Reason: Gas Trazodone HCl (Trazodone Hcl 50 Mg Tablet) 50 mg PO BEDTIME MRX1 PRN PRN Reason: Insomnia Last Admin: 12/06/23 21:40 Dose: 50 mg Allergies Allergies Allergy/AdvReac Type Severity Reaction Status Date / Time amoxicillin [AMOXICILLIN] Allergy Mild VOMITING/ABD Verified 09/10/23 19:44 PAIN Assessment & Plan Assessment & Plan (1) Schizoaffective disorder: Status: Acute Code(s): F25.9 - Schizoaffective disorder, unspecified (2) Hypothyroidism: Status: Acute Code(s): E03.9 - Hypothyroidism, unspecified (3) Type 2 diabetes mellitus: Status: Acute Code(s): E11.9 - Type 2 diabetes mellitus without complications (4) 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 Plan: CV 15 minute safety checks Continue home medications: Haldol 10mg PO daily Synthroid 200mcg PO daily Obtain labs; A1C/POCs Obtain collateral from sister Obtain records from last hospitalization. MOCA Referral for [facility] services if patient is agreeable. encourage medication compliance;consider VARGAS discharge planning 09/11: Elevated fasting blood sugar elevated hemoglobin A1c 9.2 med consult placed put in point of care needed will start metformin Would benefit from clarity over recent hospitalization what this were done details regarding treatment continue Haldol unclear if patient has Healthcare proxy his [place] was low slowed cognition with poor details in depth at times during blankly regarding making judgments Unclear if any of this relates to past coma or 2 hypothyroidism. He does seem more impaired than when last seen unclear when last imaging was. Continue Haldol sitter neuro indira involvement regarding diagnostic picture. Patient does remain paranoid blunted suspicious apathetic. He might benefit from longer- term placement if available and appropriate at a later time involved [facility] involvement would be quite helpful 09/12: cont haldol get records ? hcp ? start antidep unclear hx 09/13: Keeping to self. More talkative today. Pt concerned he will be transferred to [facility]. Pt stated, The paper I signed yesterday. Are you going to send me back to the last hospital? That place was horrible . Pt was educated he signed a release of information with Dr. Gonzalez to obtain records from [facility]. Pt was given a copy of the release he signed. Despite this, pt continues to be anxious about being transferred. Pt denies SI/HI/VH/AH. 09/14: Keeping to self. active on unit. showered. Pt reports feeling alright today; pt reports he is worried about where I'm going to go . Pt continues concerned he will be transferred to [facility]. Pt denies SI/HI/VH/AH. 09/15:Pt reports feeling alright today; pt continues to report he is worried about where I'm going to go . Responding with brief responses. Guarded. Observed standing in one place for a long period of time. Appears confused. Pt denies SI/HI/VH/AH. T/W spoke to patient's sister, Ros, with patients verbal consent. Ros reports concerns regarding patients ability to make decisions regarding his mental and physical health. She plans on contacting legal advice on obtaining guardianship of patient. 09/16:Patient's presents similar to yesterday's presentation. Responding with brief responses. Guarded. Observed standing in one place for a long period of time, when asked what he is doing, pt stated, I don't know . Pt reports he plans on contacting his sister today and try to convince her for me to stay there . Pt denies SI/HI/VH/AH. Continue current tx plan. 09/17: brief responses. Guarded. Continues to satin finisher one place for a long period of time, when asked what he is doing, pt stated, I don't know . Pt denies SI/HI/VH/AH. T/W and Dr. Gonzalez spoke to patient's sister, Ros. Ros stated being [facility] HCP and plans on finding document. She plans on coming to the hospital on Saturday to be present for [facility] intake. 09/21: No changes 09/22:Patient flat apathetic difficult insight and judgment his sister is healthcare proxy if needed patient is accepting medical treatment Referral to [facility] 09/23:Considers starting Haldol Decanoate patient is agreeable superficially difficulty with exec fx was seen [facility] 09/24:Pt seen in f/u mood flat dysphoric difficulty engaging in conversation preoccupied with thought he wont be living with family thing slowed apathetic no clear response with namenda ? some improvement inc lamictal start low dose sertraline inc lamictal ck tsh 09/25:Start Abilify as augmentation with Haldol see if can be more stimulating regarding depressed mood apathetic limited engagement sertraline 50 mg Lamictal 25 b.i.d. referral to [facility] which would have structure unclear if patient can engage with this he remains quite depressed has delusional beliefs regarding housing and that things have been done he has repeatedly tried to reach out to his sister denies active SI needs much help dressing talking with others encouragement to eat severe thought blocking Abilify might be more stimulating than Haldol which can be more dulling 09/26:Abilify started sertraline Lamictal encouraged step-down to [facility] encourage reality orientation denies active SI 09/27: Continue current regimen and plans 09/28: Continue current regimen and plans. 09/29: Referral to [facility] increase Abilify to 5 mg daily eventually try and taper Haldol sertraline 50 mg daily 09/30:Increase Abilify to 10 mg lower Haldol to 7 mg continue sertraline and Lamictal 10/01:Abilify increased to 10 mg continue to taper Haldol sertraline 100 mg Lamictal increased to 75 mg patient apathetic withdrawn difficulty with placement some paranoia continues difficulty with decision making at times. Not physically aggressive internally preoccupied seems somewhat improved with Abilify sertraline Continue discharge planning 10/02:Patient somewhat blunted flat slowed thinking during the day times staring. Change Abilify to 10 mg at bedtime. Scheduled Haldol will lowered to 2.5 mg Continue sertraline 100 mg Namenda 5 b.i.d. 10/03:Haldol discontinued modafinil low-dose monitor for psychosis or agitation continue discharge planning 10/06: May need to firm healthcare proxy calls have been placed to sister to try to help in discharge planning. Referrals made. Patient cooperative with care 10/07:Pharmacy ordering Abilify maintain a increase modafinil 100 mg patient remains flat passive depressed some improvement noted no current paranoia noted continue discharge planning no current safe discharge plan 10/08: Increase Lamictal 100 mg Abilify Maintena 400 mg hold modafinil unclear if was overly stimulating patient continues to present internally preoccupied. 10/09:Healthcare proxy invoked discharge planning continue Lamictal Abilify pending maintain a 10/10:Healthcare proxy invoked new CV signed discharge planning. 10/11 keep same treatment 10/12 keep same treatment 10/13: Continue plan of care Lamictal Abilify discharge planning sertraline 10/14: stable. continue current mgmt. 10/15: stable. continue current mgmt. 10/16: stable presentation. continue current mgmt. 10/17: as for yesterday. 10/18: no changes. 10/19: stabel, safe. no change. 10/20: no change in presentation. calm, cooperative. active on unit, social with select peers, attending groups. Pt reports feeling alright . denies SI/HI/VH/AH. Social work waiting to hear from possible placement location. Continue current tx plan. 10/21: continue current tx plan. awaiting placement. 10/22: calm, cooperative. active on unit, social with select peers, attending groups. Pt reports feeling good ; pt stated, I'm waiting to see where I'm going . denies SI/HI/VH/AH. Showered with encouragement. 10/23: continue current tx plan. 10/24: calm, cooperative. active on unit, social with select peers, attending groups. Pt reports feeling good ; pt stated, I just want a place to live . 10/25- likely at baseline for him- CTP 10/26 CTP likely needs placement 10/27: continue current tx plan. awaiting placement. 10/28: Similar to yesterday. No change in presentation. 10/29: Pt reports feeling good ;pt stated, just waiting for a place to live . denies any issues at this time. 10/30: calm, cooperative. active on unit, social with select peers, attending groups. Pt reports feeling worried about where I am going to live . denies any issues at this time. 10/21: no change in presentation. continue current tx plan. 11/01: continue current management and treatment plan. 11/02: Continue current management and treatment plan. 11/03: Continue current management and treatment plan. 11/04: Active on unit. calm, cooperative. social with select peers, attending groups. denies any issues at this time. He reports sleeping well. Pt reports he would be interested in applying for [facility] services; social work aware. 11/05: Active on unit. calm, cooperative. social with select peers, attending groups. denies any issues at this time. Pt reports feeling okay ; he reports anxiety regarding placement. Continue current tx plan. 11/07/23 [facility] referral has appropriate concerns re living stuation cont abilify lamictal 11/08/23 Pt cooperative with care d/c planning working with cont d/c planning cont lamictal abilify 11/12/23 Patient increasingly despairing aware of no clear discharge plan periods needs cuing for much functioning limited social engaged needs help regarding diabetes and medication compliance reportedly had been rejected by multiple rest homes patient not threatening intermittently hopeless helpless very limited family contact at this time 11/13/23 pt flat depressed hopeless helpless unable to fx without structure 11/15 continue tx. 11/16 continue tx. 11/18/2023 Continue plan of care referral to [facility] TSH low will decrease levothyroxine 11/19/23 Pt flat dysphor ic inc hopeless helpless lamictal 150 hs dec levothyroxine 150 d/c planning cont 11/20/23 lamictal inc d/c planning dmh referral 12/02/2023 Continue Lamictal Abilify patient cooperative with care gets despairing at times regarding lack of family support problematic discharge planning in relationship to finding suitable structured place to live 12/02: Social with peers. Per nursing, pt did not sleep last night. Pt reports he did not sleeping because he wasn't tired but feel okay ; ordered Ativan 1mg PO bedtime for tonight, pt aware. 12/03: In bed sleeping, pt reports he is catching up on sleep from the night before. Calm, cooperative. T/W and top and trim worker, Billie, with pt to discuss possibly going to the [facility]. Pt reports he would like to call his sister and speak to her before deciding. DC Ativan. 12/04: Active on unit, social with peers. attending groups. T/W and top and trim worker, Billie, met with pt to discuss discharge plan. Pt reports he doesn't know if he would want to go to a homeless prison; he states he would rather live on the street because I've done it before . Pt encouraged to consider benefits of going to a prison with the winter months coming; he agreed to doing phone intake with social media assistant on Saturday with Shaylee Moore. 12/05: Pt presents similar to yesterday. Continues to perseverate about [facility] being a prison and not a program; He continues to agree to do phone intake on Saturday. Discussed VARGAS, pt reports he want time to consider d/t not liking needles . 12/06 CTP pending placement Reason for continued inpatient stay Substantial Risk for: inability to function and rapid decompensation Time Spent With Patient Time: Total time managing care of this patient today ____ minutes.
[2023-12-07 12:41] LABS: Glucose, Whole Blood 193 mg/dL (60-115)
[2023-12-07] MEDS: Insulin Lispro 100 UNIT/ML 3 ML VIAL SUBCUT ×2 (13:02→21:33)
[2023-12-07 17:57] LABS: Glucose, Whole Blood 139 mg/dL (60-115)
[2023-12-07] MEDS: metFORMIN HCl ER 500 MG TAB.ER.24H 1000 MG PO (18:04)
[2023-12-07 19:45] VITALS: BP 137/73; PULSE 89; RESP 16; TEMP 37.4; O2SAT 97
[2023-12-07] MEDS: Insulin Glargine,Hum.rec.anlog 100 UNIT/ML 10 ML VIAL 20 UNIT SUBCUT (21:17)
[2023-12-07] MEDS: lamoTRIgine 100 MG TABLET 150 MG PO (21:17)
[2023-12-07] MEDS: ARIPiprazole 10 MG TABLET PO (21:17)
[2023-12-07 21:26] LABS: Glucose, Whole Blood 177 mg/dL (60-115)
[2023-12-08 07:45] VITALS: BP 119/68; PULSE 74; RESP 16; TEMP 36.4; O2SAT 95
[2023-12-08] MEDS: Sertraline HCL 100 MG TABLET PO (09:04)
[2023-12-08] MEDS: Memantine HCl 5 MG TABLET PO ×2 (09:04→20:52)
[2023-12-08] MEDS: Levothyroxine Sodium 150 MCG TABLET PO (09:05)
[2023-12-08 09:17] LABS: Glucose, Whole Blood 121 mg/dL (60-115)
--- NOTE | 2023-12-08 11:18 | P.PNPSI_ITS ---
Subjective Subjective Date of Service: 12/08/23 Reason For Visit: paranoia cognitive impairment Subjective Notes: Conditional Voluntary Healthcare Proxy: No Guardianship: No Medical Problems Affecting Mental Status: No Interim History: Continues stable psychiatrically baseline -poorly kempt but alert and cooperative denying sys or s/e Medication Compliance: Yes Side effects from medications: No Attending Groups: Yes Review of Systems Acute medical concerns: No Medical Review of Systems: unchanged Mental Status Exam Mental Status Exam Patient Appearance: Disheveled Patient Orientation: Person, Place and Situation Level of Consciousness: Awake Patient Behavior: Appropriate and Cooperative Mood Description: Calm, Blunted and Flat Affect Description: Blunted Patient Cognition Impaired: Yes Ability to Follow Directions: Fair Speech Pattern: Clear and Soft-Spoken 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: Cloth Trimmer Hand Impaired Diagnostics Vital Signs (24Hr): Vital Signs - 24 hr 12/07/23 19:45 12/08/23 07:45 Temperature 99.3 F 97.5 F Pulse Rate 89 74 Respiratory Rate 16 16 Blood Pressure 137/73 119/68 Pulse Oximetry 97 95 Oxygen Delivery Method Room Air Room Air BMI result Body Mass Index 32.3 Labs 09/10/23 20:00 12/05/23 09:05 Labs: Laboratory Results - last 48 hr 12/06/23 12/06/23 12/06/23 12:25 17:47 20:14 POC Glucose 207 H 153 H 176 H 12/07/23 12/07/23 12/07/23 07:19 12:34 17:50 POC Glucose 106 193 H 139 H 12/07/23 12/08/23 21:15 09:03 POC Glucose 177 H 121 H Imaging Radiology Impressions: ITS Impressions Brain MRI 09/19/23 20:33 IMPRESSION: 1. No demonstrated acute intracranial abnormalities. 2. Chronic mild to moderate nonspecific white matter changes, most notably in the deep white matter of the right frontal lobe. Mild to moderate generalized cerebral volume loss. Medications Medications Current Medications Acetaminophen (Acetaminophen 325 Mg Tablet) 650 mg PO Q6H PRN PRN Reason: Headache/Pain Mild Scale (1-3) Last Admin: 10/13/23 09:39 Dose: 650 mg Al Hydroxide/Mg Hydroxide (Magnesium Hydrox/Alum Hydrox 30 Ml Oral.Susp) 30 ml PO Q6H PRN PRN Reason: Heartburn/Nausea Last Admin: 11/27/23 10:48 Dose: 30 ml Aripiprazole (Aripiprazole 10 Mg Tablet) 10 mg PO BEDTIME [facility] Last Admin: 12/07/23 21:17 Dose: 10 mg Benztropine Mesylate (Benztropine Mesylate 0.5 Mg Tablet) 0.5 mg PO TID PRN PRN Reason: Extrapyramidal Effects Glucose (Glucose Gel 15 Gm Gel..Gram.) 15 gm PO Q15M PRN; Protocol PRN Reason: per Hypoglycemia Standing Ord. Hydroxyzine HCl (Hydroxyzine Hcl 25 Mg Tablet) 25 mg PO Q6H PRN PRN Reason: Anxiety Last Admin: 12/02/23 00:02 Dose: 25 mg Dextrose (D10) 250 mls @ 750 mls/hr IV Q15M PRN; Protocol PRN Reason: per Hypoglycemia Standing Ord. Insulin Glargine (Insulin Glargine,Hum.Rec.Anlog 100 Unit/Ml 10 Ml Vial) 20 unit SUBCUT BEDTIME [facility] Last Admin: 12/07/23 21:17 Dose: 20 unit Insulin Human Lispro (Insulin Lispro 100 Unit/Ml 3 Ml Vial) 0 unit SUBCUT QIDACHS [facility]; Protocol Last Admin: 12/08/23 09:12 Dose: Not Given Lamotrigine (Lamotrigine 100 Mg Tablet) 150 mg PO BEDTIME [facility] Last Admin: 12/07/23 21:17 Dose: 150 mg Levothyroxine Sodium (Levothyroxine Sodium 150 Mcg Tablet) 150 mcg PO DAILY@0800 [facility] Last Admin: 12/08/23 09:05 Dose: 150 mcg Magnesium Hydroxide (Milk Of Magnesia 30 Ml Oral.Susp) 30 ml PO DAILY PRN PRN Reason: Constipation Memantine (Memantine Hcl 5 Mg Tablet) 5 mg PO BID [facility] Last Admin: 12/08/23 09:04 Dose: 5 mg Metformin HCl (Metformin Hcl Er 500 Mg Tab.Er.24h) 1,000 mg PO DAILY@1700 [facility] Last Admin: 12/07/23 18:04 Dose: 1,000 mg Nicotine Polacrilex (Nicotine Polacrilex 2 Mg Gum) 4 mg BUCCAL Q2H PRN PRN Reason: Nicotine Cravings Ondansetron HCl (Ondansetron Odt 8 Mg Tab.Rapdis) 8 mg TRANSLINGU Q8H PRN PRN Reason: Nausea and Vomiting Last Admin: 11/27/23 10:48 Dose: 8 mg Sertraline HCl (Sertraline Hcl 100 Mg Tablet) 100 mg PO DAILY [facility] Last Admin: 12/08/23 09:04 Dose: 100 mg Simethicone (Simethicone 80 Mg Tab.Chew) 80 mg PO QIDWMHS PRN PRN Reason: Gas Trazodone HCl (Trazodone Hcl 50 Mg Tablet) 50 mg PO BEDTIME MRX1 PRN PRN Reason: Insomnia Last Admin: 12/06/23 21:40 Dose: 50 mg Allergies Allergies Allergy/AdvReac Type Severity Reaction Status Date / Time amoxicillin [AMOXICILLIN] Allergy Mild VOMITING/ABD Verified 09/10/23 19:44 PAIN Assessment & Plan Assessment & Plan (1) Schizoaffective disorder: Status: Acute Code(s): F25.9 - Schizoaffective disorder, unspecified (2) Hypothyroidism: Status: Acute Code(s): E03.9 - Hypothyroidism, unspecified (3) Type 2 diabetes mellitus: Status: Acute Code(s): E11.9 - Type 2 diabetes mellitus without complications (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 Plan: CV 15 minute safety checks Continue home medications: Haldol 10mg PO daily Synthroid 200mcg PO daily Obtain labs; A1C/POCs Obtain collateral from sister Obtain records from last hospitalization. MOCA Referral for [facility] services if patient is agreeable. encourage medication compliance;consider VARGAS discharge planning 09/11: Elevated fasting blood sugar elevated hemoglobin A1c 9.2 med consult placed put in point of care needed will start metformin Would benefit from clarity over recent hospitalization what this were done details regarding treatment continue Haldol unclear if patient has Healthcare proxy his [place] was low slowed cognition with poor details in depth at times during blankly regarding making judgments Unclear if any of this relates to past coma or 2 hypothyroidism. He does seem more impaired than when last seen unclear when last imaging was. [facility] regarding diagnostic picture. Patient does remain paranoid blunted suspicious apathetic. He might benefit from longer- term placement if available and appropriate at a later time involved [facility] involvement would be quite helpful 09/12: cont haldol get records ? hcp ? start antidep unclear hx 09/13: Keeping to self. More talkative today. Pt concerned he will be transferred to [facility]. Pt stated, The paper I signed yesterday. Are you going to send me back to the last hospital? That place was horrible . Pt was educated he signed a release of information with Dr. Gonzalez to obtain records from [facility]. Pt was given a copy of the release he signed. Despite this, pt continues to be anxious about being transferred. Pt denies SI/HI/VH/AH. 09/14: Keeping to self. active on unit. showered. Pt reports feeling alright today; pt reports he is worried about where I'm going to go . Pt continues concerned he will be transferred to [facility]. Pt denies SI/HI/VH/AH. 09/15:Pt reports feeling alright today; pt continues to report he is worried about where I'm going to go . Responding with brief responses. Guarded. Observed standing in one place for a long period of time. Appears confused. Pt denies SI/HI/VH/AH. T/W spoke to patient's sister, Ros, with patients verbal consent. Ros reports concerns regarding patients ability to make decisions regarding his mental and physical health. She plans on contacting legal advice on obtaining guardianship of patient. 09/16:Patient's presents similar to yesterday's presentation. Responding with brief responses. Guarded. Observed standing in one place for a long period of time, when asked what he is doing, pt stated, I don't know . Pt reports he plans on contacting his sister today and try to convince her for me to stay there . Pt denies SI/HI/VH/AH. Continue current tx plan. 09/17: brief responses. Guarded. 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 Pt denies SI/HI/VH/AH. T/W and Dr. Gonzalez spoke to patient's sister, Ros. Ros stated being [facility] HCP and plans on finding document. She plans on coming to the hospital on Saturday to be present for [facility] intake. 09/21: No changes 09/22:Patient flat apathetic difficult insight and judgment his sister is healthcare proxy if needed patient is accepting medical treatment Referral to [facility] 09/23:Considers starting Haldol Decanoate patient is agreeable superficially difficulty with exec fx was seen [facility] 09/24:Pt seen in f/u mood flat dysphoric difficulty engaging in conversation preoccupied with thought he wont be living with family thing slowed apathetic no clear response with namenda ? some improvement inc lamictal start low dose sertraline inc lamictal ck tsh 09/25:Start Abilify as augmentation with Haldol see if can be more stimulating regarding depressed mood apathetic limited engagement sertraline 50 mg Lamictal 25 b.i.d. referral to [facility] which would have structure unclear if patient can engage with this he remains quite depressed has delusional beliefs regarding housing and that things have been done he has repeatedly tried to reach out to his sister denies active SI needs much help dressing talking with others encouragement to eat severe thought blocking Abilify might be more stimulating than Haldol which can be more dulling 09/26:Abilify started sertraline Lamictal encouraged step-down to [facility] encourage reality orientation denies active SI 09/27: Continue current regimen and plans 09/28: Continue current regimen and plans. 09/29: Referral to [facility] increase Abilify to 5 mg daily eventually try and taper Haldol sertraline 50 mg daily 09/30:Increase Abilify to 10 mg lower Haldol to 7 mg continue sertraline and Lamictal 10/01:Abilify increased to 10 mg continue to taper Haldol sertraline 100 mg Lamictal increased to 75 mg patient apathetic withdrawn difficulty with placement some paranoia continues difficulty with decision making at times. Not physically aggressive internally preoccupied seems somewhat improved with Abilify sertraline Continue discharge planning 10/02:Patient somewhat blunted flat slowed thinking during the day times staring. Change Abilify to 10 mg at bedtime. Scheduled Haldol will lowered to 2.5 mg Continue sertraline 100 mg Namenda 5 b.i.d. 10/03:Haldol discontinued modafinil low-dose monitor for psychosis or agitation continue discharge planning 10/06: May need to firm healthcare proxy calls have been placed to sister to try to help in discharge planning. Referrals made. Patient cooperative with care 10/07:Pharmacy ordering Abilify maintain a increase modafinil 100 mg patient remains flat passive depressed some improvement noted no current paranoia noted continue discharge planning no current safe discharge plan 10/08: Increase Lamictal 100 mg Abilify Maintena 400 mg hold modafinil unclear if was overly stimulating patient continues to present internally preoccupied. 10/09:Healthcare proxy invoked discharge planning continue Lamictal Abilify pending maintain a 10/10:Healthcare proxy invoked new CV signed discharge planning. 10/11 keep same treatment 10/12 keep same treatment 10/13: Continue plan of care Lamictal Abilify discharge planning sertraline 10/14: stable. continue current mgmt. 10/15: stable. continue current mgmt. 10/16: stable presentation. continue current mgmt. 10/17: as for yesterday. 10/18: no changes. 10/19: stabel, safe. no change. 10/20: no change in presentation. calm, cooperative. active on unit, social with select peers, attending groups. Pt reports feeling alright . denies SI/HI/VH/AH. Social work waiting to hear from possible placement location. Continue current tx plan. 10/21: continue current tx plan. awaiting placement. 10/22: calm, cooperative. active on unit, social with select peers, attending groups. Pt reports feeling good ; pt stated, I'm waiting to see where I'm going . denies SI/HI/VH/AH. Showered with encouragement. 10/23: continue current tx plan. 10/24: calm, cooperative. active on unit, social with select peers, attending groups. Pt reports feeling good ; pt stated, I just want a place to live . 10/25- likely at baseline for him- CTP 10/26 CTP likely needs placement 10/27: continue current tx plan. awaiting placement. 10/28: Similar to yesterday. No change in presentation. 10/29: Pt reports feeling good ;pt stated, just waiting for a place to live . denies any issues at this time. 10/30: calm, cooperative. active on unit, social with select peers, attending groups. Pt reports feeling worried about where I am going to live . denies any issues at this time. 10/21: no change in presentation. continue current tx plan. 11/01: continue current management and treatment plan. 11/02: Continue current management and treatment plan. 11/03: Continue current management and treatment plan. 11/04: Active on unit. calm, cooperative. social with select peers, attending groups. denies any issues at this time. He reports sleeping well. Pt reports he would be interested in applying for [facility] services; social work aware. 11/05: Active on unit. calm, cooperative. social with select peers, attending groups. denies any issues at this time. Pt reports feeling okay ; he reports anxiety regarding placement. Continue current tx plan. 11/07/23 [facility] referral has appropriate concerns re living stuation cont abilify lamictal 11/08/23 Pt cooperative with care d/c planning working with cont d/c planning cont lamictal abilify 11/12/23 Patient increasingly despairing aware of no clear discharge plan periods needs cuing for much functioning limited social engaged needs help regarding diabetes and medication compliance reportedly had been rejected by multiple rest homes patient not threatening intermittently hopeless helpless very limited family contact at this time 11/13/23 pt flat depressed hopeless helpless unable to fx without structure 11/15 continue tx. 11/16 continue tx. 11/18/2023 Continue plan of care referral to [facility] TSH low will decrease levothyroxine 11/19/23 Pt flat dysphor ic inc hopeless helpless lamictal 150 hs dec levothyroxine 150 d/c planning cont 11/20/23 lamictal inc d/c planning h referral 12/02/2023 Continue Lamictal Abilify patient cooperative with care gets despairing at times regarding lack of family support problematic discharge planning in relationship to finding suitable structured place to live 12/02: Social with peers. Per nursing, pt did not sleep last night. Pt reports he did not sleeping because he wasn't tired but feel okay ; ordered Ativan 1mg PO bedtime for tonight, pt aware. 12/03: In bed sleeping, pt reports he is catching up on sleep from the night before. Calm, cooperative. T/W and extrusion utility worker, Billie, with pt to discuss possibly going to the [facility]. Pt reports he would like to call his sister and speak to her before deciding. DC Ativan. 12/04: Active on unit, social with peers. attending groups. T/W and extrusion utility worker, Billie, met with pt to discuss discharge plan. Pt reports he doesn't know if he would want to go to a homeless alf; he states he would rather live on the street because I've done it before . Pt encouraged to consider benefits of going to a alf with the winter months coming; he agreed to doing phone intake with public health social worker on Saturday with [facility]. 12/05: Pt presents similar to yesterday. Continues to perseverate about [facility] being a alf and not a program; He continues to agree to do phone intake on Saturday. Discussed VARGAS, pt reports he want time to consider d/t not liking needles . 12/06 no change 12/07 CTP pending placement Reason for continued inpatient stay Substantial Risk for: inability to function and rapid decompensation Time Spent With Patient Time: Total time managing care of this patient today ____ minutes.
[2023-12-08 12:52] LABS: Glucose, Whole Blood 110 mg/dL (60-115)
[2023-12-08 17:46] LABS: Glucose, Whole Blood 140 mg/dL (60-115)
[2023-12-08] MEDS: metFORMIN HCl ER 500 MG TAB.ER.24H 1000 MG PO (17:47)
[2023-12-08 19:45] VITALS: BP 129/68; PULSE 80; TEMP 36.3; O2SAT 99
[2023-12-08 20:45] LABS: Glucose, Whole Blood 166 mg/dL (60-115)
[2023-12-08] MEDS: Insulin Lispro 100 UNIT/ML 3 ML VIAL SUBCUT (20:50)
[2023-12-08] MEDS: Insulin Glargine,Hum.rec.anlog 100 UNIT/ML 10 ML VIAL 20 UNIT SUBCUT (20:50)
[2023-12-08] MEDS: ARIPiprazole 10 MG TABLET PO (20:52)
[2023-12-08] MEDS: lamoTRIgine 100 MG TABLET 150 MG PO (20:52)
[2023-12-09 07:34] LABS: Glucose, Whole Blood 109 mg/dL (60-115)
--- NOTE | 2023-12-09 09:15 | HO.PSYCHPN ---
Subjective Subjective Date of Service: 12/09/23 Reason For Visit: paranoia cognitive impairment Subjective Notes: Conditional Voluntary Interim History: Reviewed with Dr. Gonzalez. Active on unit, social with peers. Pt had phone interview with [facility], however, after multiple attempts at calling them, no one at [facility] picked up the phone to conduct interview. life skills worker to get into contact with them again. Pt denies any issues at this time. Medication Compliance: Yes Side effects from medications: No Attending Groups: Yes Review of Systems Constitutional: Reports as per HPI Eyes: Reports as per HPI Reports as per HPI Cardiovascular: Reports as per HPI Respiratory: Reports as per HPI Gastrointestinal: Reports as per HPI Genitourinary: Reports as per HPI Musculoskeletal: Reports as per HPI Skin/Breast: Reports as per HPI Reports as per HPI Psychiatric: Reports as per HPI Endocrine: Reports as per HPI Hematologic/Lymphatic: Reports as per HPI Allergic/Immunologic: Reports as per HPI 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: Correction Impaired 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: None Diagnostics Vital Signs (24Hr): Vital Signs - 24 hr 12/08/23 19:45 Temperature 97.4 F Pulse Rate 80 Blood Pressure 129/68 Pulse Oximetry 99 Oxygen Delivery Method Room Air BMI result Body Mass Index 32.3 Labs 09/10/23 20:00 12/05/23 09:05 Labs: Laboratory Results - last 48 hr 12/07/23 12/07/23 12/07/23 12:34 17:50 21:15 POC Glucose 193 H 139 H 177 H 12/08/23 12/08/23 12/08/23 09:03 12:49 17:39 POC Glucose 121 H 110 140 H 12/08/23 12/09/23 20:40 07:30 POC Glucose 166 H 109 Imaging Radiology Impressions: ITS Impressions Brain MRI 09/19/23 20:33 IMPRESSION: 1. No demonstrated acute intracranial abnormalities. 2. Chronic mild to moderate nonspecific white matter changes, most notably in the deep white matter of the right frontal lobe. Mild to moderate generalized cerebral volume loss. Medications Medications Current Medications Acetaminophen (Acetaminophen 325 Mg Tablet) 650 mg PO Q6H PRN PRN Reason: Headache/Pain Mild Scale (1-3) Last Admin: 10/13/23 09:39 Dose: 650 mg Al Hydroxide/Mg Hydroxide (Magnesium Hydrox/Alum Hydrox 30 Ml Oral.Susp) 30 ml PO Q6H PRN PRN Reason: Heartburn/Nausea Last Admin: 11/27/23 10:48 Dose: 30 ml Aripiprazole (Aripiprazole 10 Mg Tablet) 10 mg PO BEDTIME [facility] Last Admin: 12/08/23 20:52 Dose: 10 mg Benztropine Mesylate (Benztropine Mesylate 0.5 Mg Tablet) 0.5 mg PO TID PRN PRN Reason: Extrapyramidal Effects Glucose (Glucose Gel 15 Gm Gel..Gram.) 15 gm PO Q15M PRN; Protocol PRN Reason: per Hypoglycemia Standing Ord. Hydroxyzine HCl (Hydroxyzine Hcl 25 Mg Tablet) 25 mg PO Q6H PRN PRN Reason: Anxiety Last Admin: 12/02/23 00:02 Dose: 25 mg Dextrose (D10) 250 mls @ 750 mls/hr IV Q15M PRN; Protocol PRN Reason: per Hypoglycemia Standing Ord. Insulin Glargine (Insulin Glargine,Hum.Rec.Anlog 100 Unit/Ml 10 Ml Vial) 20 unit SUBCUT BEDTIME [facility] Last Admin: 12/08/23 20:50 Dose: 20 unit Insulin Human Lispro (Insulin Lispro 100 Unit/Ml 3 Ml Vial) 0 unit SUBCUT QIDACHS [facility]; Protocol Last Admin: 12/09/23 08:31 Dose: Not Given Lamotrigine (Lamotrigine 100 Mg Tablet) 150 mg PO BEDTIME [facility] Last Admin: 12/08/23 20:52 Dose: 150 mg Levothyroxine Sodium (Levothyroxine Sodium 150 Mcg Tablet) 150 mcg PO DAILY@0800 [facility] Last Admin: 12/08/23 09:05 Dose: 150 mcg Magnesium Hydroxide (Milk Of Magnesia 30 Ml Oral.Susp) 30 ml PO DAILY PRN PRN Reason: Constipation Memantine (Memantine Hcl 5 Mg Tablet) 5 mg PO BID [facility] Last Admin: 12/08/23 20:52 Dose: 5 mg Metformin HCl (Metformin Hcl Er 500 Mg Tab.Er.24h) 1,000 mg PO DAILY@1700 [facility] Last Admin: 12/08/23 17:47 Dose: 1,000 mg Nicotine Polacrilex (Nicotine Polacrilex 2 Mg Gum) 4 mg BUCCAL Q2H PRN PRN Reason: Nicotine Cravings Ondansetron HCl (Ondansetron Odt 8 Mg Tab.Rapdis) 8 mg TRANSLINGU Q8H PRN PRN Reason: Nausea and Vomiting Last Admin: 11/27/23 10:48 Dose: 8 mg Sertraline HCl (Sertraline Hcl 100 Mg Tablet) 100 mg PO DAILY MANAS Last Admin: 12/08/23 09:04 Dose: 100 mg Simethicone (Simethicone 80 Mg Tab.Chew) 80 mg PO QIDWMHS PRN PRN Reason: Gas Trazodone HCl (Trazodone Hcl 50 Mg Tablet) 50 mg PO BEDTIME MRX1 PRN PRN Reason: Insomnia Last Admin: 12/06/23 21:40 Dose: 50 mg Allergies Allergies Allergy/AdvReac Type Severity Reaction Status Date / Time amoxicillin [AMOXICILLIN] Allergy Mild VOMITING/ABD Verified 09/10/23 19:44 PAIN Assessment & Plan Assessment & Plan (1) Schizoaffective disorder: Status: Acute Code(s): F25.9 - Schizoaffective disorder, unspecified (2) Hypothyroidism: Status: Acute Code(s): E03.9 - Hypothyroidism, unspecified (3) Type 2 diabetes mellitus: Status: Acute Code(s): E11.9 - Type 2 diabetes mellitus without complications (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 Plan: CV 15 minute safety checks Continue home medications: Haldol 10mg PO daily Synthroid 200mcg PO daily Obtain labs; A1C/POCs Obtain collateral from sister Obtain records from last hospitalization. MOCA Referral for [facility] services if patient is agreeable. encourage medication compliance;consider VARGAS discharge planning 09/11: Elevated fasting blood sugar elevated hemoglobin A1c 9.2 med consult placed put in point of care needed will start metformin Would benefit from clarity over recent hospitalization what this were done details regarding treatment continue Haldol unclear if patient has Healthcare proxy his [place]ullen was low slowed cognition with poor details in depth at times during blankly regarding making judgments Unclear if any of this relates to past coma or 2 hypothyroidism. He does seem more impaired than when last seen unclear when last imaging was. Continue Haldol sitter neuro indira involvement regarding diagnostic picture. Patient does remain paranoid blunted suspicious apathetic. He might benefit from longer-term placement if available and appropriate at a later time involved [facility] involvement would be quite helpful 09/12: cont haldol get records ? hcp ? start antidep unclear hx 09/13: Keeping to self. More talkative today. Pt concerned he will be transferred to [facility]. Pt stated, The paper I signed yesterday. Are you going to send me back to the last hospital? That place was horrible . Pt was educated he signed a release of information with Dr. Gonzalez to obtain records from [facility]. Pt was given a copy of the release he signed. Despite this, pt continues to be anxious about being transferred. Pt denies SI/HI/VH/AH. 09/14: Keeping to self. active on unit. showered. Pt reports feeling alright today; pt reports he is worried about where I'm going to go . Pt continues concerned he will be transferred to [facility]. Pt denies SI/HI/VH/AH. 09/15:Pt reports feeling alright today; pt continues to report he is worried about where I'm going to go . Responding with brief responses. Guarded. Observed standing in one place for a long period of time. Appears confused. Pt denies SI/HI/VH/AH. T/W spoke to patient's sister, Ros, with patients verbal consent. Ros reports concerns regarding patients ability to make decisions regarding his mental and physical health. She plans on contacting legal advice on obtaining guardianship of patient. 09/16:Patient's presents similar to yesterday's presentation. Responding with brief responses. Guarded. Observed standing in one place for a long period of time, when asked what he is doing, pt stated, I don't know . Pt reports he plans on contacting his sister today and try to convince her for me to stay there . Pt denies SI/HI/VH/AH. Continue current tx plan. 09/17: brief responses. Guarded. 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 Pt denies SI/HI/VH/AH. T/W and Dr. Gonzalez spoke to patient's sister, Ros. Ros stated being [facility] HCP and plans on finding document. She plans on coming to the hospital on Saturday to be present for [facility] intake. 09/21: No changes 09/22:Patient flat apathetic difficult insight and judgment his sister is healthcare proxy if needed patient is accepting medical treatment Referral to [facility] 09/23:Considers starting Haldol Decanoate patient is agreeable superficially difficulty with exec fx was seen [facility] 09/24:Pt seen in f/u mood flat dysphoric difficulty engaging in conversation preoccupied with thought he wont be living with family thing slowed apathetic no clear response with namenda ? some improvement inc lamictal start low dose sertraline inc lamictal ck tsh 09/25:Start Abilify as augmentation with Haldol see if can be more stimulating regarding depressed mood apathetic limited engagement sertraline 50 mg Lamictal 25 b.i.d. referral to [facility] which would have structure unclear if patient can engage with this he remains quite depressed has delusional beliefs regarding housing and that things have been done he has repeatedly tried to reach out to his sister denies active SI needs much help dressing talking with others encouragement to eat severe thought blocking Abilify might be more stimulating than Haldol which can be more dulling 09/26:Abilify started sertraline Lamictal encouraged step-down to [facility] encourage reality orientation denies active SI 09/27: Continue current regimen and plans 09/28: Continue current regimen and plans. 09/29: Referral to [facility] increase Abilify to 5 mg daily eventually try and taper Haldol sertraline 50 mg daily 09/30:Increase Abilify to 10 mg lower Haldol to 7 mg continue sertraline and Lamictal 10/01:Abilify increased to 10 mg continue to taper Haldol sertraline 100 mg Lamictal increased to 75 mg patient apathetic withdrawn difficulty with placement some paranoia continues difficulty with decision making at times. Not physically aggressive internally preoccupied seems somewhat improved with Abilify sertraline Continue discharge planning 10/02:Patient somewhat blunted flat slowed thinking during the day times staring. Change Abilify to 10 mg at bedtime. Scheduled Haldol will lowered to 2.5 mg Continue sertraline 100 mg Namenda 5 b.i.d. 10/03:Haldol discontinued modafinil low-dose monitor for psychosis or agitation continue discharge planning 10/06: May need to firm healthcare proxy calls have been placed to sister to try to help in discharge planning. Referrals made. Patient cooperative with care 10/07:Pharmacy ordering Abilify maintain a increase modafinil 100 mg patient remains flat passive depressed some improvement noted no current paranoia noted continue discharge planning no current safe discharge plan 10/08: Increase Lamictal 100 mg Abilify Maintena 400 mg hold modafinil unclear if was overly stimulating patient continues to present internally preoccupied. 10/09:Healthcare proxy invoked discharge planning continue Lamictal Abilify pending maintain a 10/10:Healthcare proxy invoked new CV signed discharge planning. 10/11 keep same treatment 10/12 keep same treatment 10/13: Continue plan of care Lamictal Abilify discharge planning sertraline 10/14: stable. continue current mgmt. 10/15: stable. continue current mgmt. 10/16: stable presentation. continue current mgmt. 10/17: as for yesterday. 10/18: no changes. 10/19: stabel, safe. no change. 10/20: no change in presentation. calm, cooperative. active on unit, social with select peers, attending groups. Pt reports feeling alright . denies SI/HI/VH/AH. Social work waiting to hear from possible placement location. Continue current tx plan. 10/21: continue current tx plan. awaiting placement. 10/22: calm, cooperative. active on unit, social with select peers, attending groups. Pt reports feeling good ; pt stated, I'm waiting to see where I'm going . denies SI/HI/VH/AH. Showered with encouragement. 10/23: continue current tx plan. 10/24: calm, cooperative. active on unit, social with select peers, attending groups. Pt reports feeling good ; pt stated, I just want a place to live . 10/25- likely at baseline for him- CTP 10/26 CTP likely needs placement 10/27: continue current tx plan. awaiting placement. 10/28: Similar to yesterday. No change in presentation. 10/29: Pt reports feeling good ;pt stated, just waiting for a place to live . denies any issues at this time. 10/30: calm, cooperative. active on unit, social with select peers, attending groups. Pt reports feeling worried about where I am going to live . denies any issues at this time. 10/21: no change in presentation. continue current tx plan. 11/01: continue current management and treatment plan. 11/02: Continue current management and treatment plan. 11/03: Continue current management and treatment plan. 11/04: Active on unit. calm, cooperative. social with select peers, attending groups. denies any issues at this time. He reports sleeping well. Pt reports he would be interested in applying for [facility] services; social work aware. 11/05: Active on unit. calm, cooperative. social with select peers, attending groups. denies any issues at this time. Pt reports feeling okay ; he reports anxiety regarding placement. Continue current tx plan. 11/07/23 [facility] referral has appropriate concerns re living stuation cont abilify lamictal 11/08/23 Pt cooperative with care d/c planning working with cont d/c planning cont lamictal abilify 11/12/23 Patient increasingly despairing aware of no clear discharge plan periods needs cuing for much functioning limited social engaged needs help regarding diabetes and medication compliance reportedly had been rejected by multiple rest homes patient not threatening intermittently hopeless helpless very limited family contact at this time 11/13/23 pt flat depressed hopeless helpless unable to fx without structure 11/15 continue tx. 11/16 continue tx. 11/18/2023 Continue plan of care referral to [facility] TSH low will decrease levothyroxine 11/19/23 Pt flat dysphor ic inc hopeless helpless lamictal 150 hs dec levothyroxine 150 d/c planning cont 11/20/23 lamictal inc d/c planning dmh referral 12/02/2023 Continue Lamictal Abilify patient cooperative with care gets despairing at times regarding lack of family support problematic discharge planning in relationship to finding suitable structured place to live 12/02: Social with peers. Per nursing, pt did not sleep last night. Pt reports he did not sleeping because he wasn't tired but feel okay ; ordered Ativan 1mg PO bedtime for tonight, pt aware. 12/03: In bed sleeping, pt reports he is catching up on sleep from the night before. Calm, cooperative. T/W and life skills worker, Billie, with pt to discuss possibly going to the [facility]. Pt reports he would like to call his sister and speak to her before deciding. DC Ativan. 12/04: Active on unit, social with peers. attending groups. T/W and life skills worker, Billie, met with pt to discuss discharge plan. Pt reports he doesn't know if he would want to go to a homeless halfway; he states he would rather live on the street because I've done it before . Pt encouraged to consider benefits of going to a halfway with the winter months coming; he agreed to doing phone intake with social work coordinator on Saturday with [facility]. 12/05: Pt presents similar to yesterday. Continues to perseverate about [facility] being a halfway and not a program; He continues to agree to do phone intake on Saturday. Discussed VARGAS, pt reports he want time to consider d/t not liking needles . 12/08: Pt had phone interview with [facility], however, after multiple attempts at calling them, no one at [facility] picked up the phone to conduct interview. life skills worker to get into contact with them again. Pt denies any issues at this time. Patient educated on: other Reason for continued inpatient stay Substantial Risk for: other Time Spent With Patient Time: Total time managing care of this patient today _20___ minutes.
[2023-12-09] MEDS: Memantine HCl 5 MG TABLET PO ×2 (09:42→20:31)
[2023-12-09] MEDS: Sertraline HCL 100 MG TABLET PO (09:42)
[2023-12-09] MEDS: Levothyroxine Sodium 150 MCG TABLET PO (09:42)
[2023-12-09 10:01] VITALS: BP 128/72; PULSE 78; RESP 14; TEMP 36.6; O2SAT 96
[2023-12-09 11:57] LABS: Glucose, Whole Blood 292 mg/dL (60-115)
[2023-12-09] MEDS: Insulin Lispro 100 UNIT/ML 3 ML VIAL SUBCUT ×2 (12:29→16:59)
[2023-12-09 16:42] LABS: Glucose, Whole Blood 169 mg/dL (60-115)
[2023-12-09] MEDS: metFORMIN HCl ER 500 MG TAB.ER.24H 1000 MG PO (16:58)
[2023-12-09 20:00] VITALS: BP 127/75; PULSE 86; RESP 16; TEMP 36.5; O2SAT 96
[2023-12-09 20:28] LABS: Glucose, Whole Blood 127 mg/dL (60-115)
[2023-12-09] MEDS: Insulin Glargine,Hum.rec.anlog 100 UNIT/ML 10 ML VIAL 20 UNIT SUBCUT (20:30)
[2023-12-09] MEDS: lamoTRIgine 100 MG TABLET 150 MG PO (20:31)
[2023-12-09] MEDS: ARIPiprazole 10 MG TABLET PO (20:31)
[2023-12-09] MEDS: traZODone HCL 50 MG TABLET PO ×2 (20:31→23:11)
[2023-12-10 07:38] LABS: Glucose, Whole Blood 109 mg/dL (60-115)
[2023-12-10 07:52] VITALS: BP 124/72; PULSE 72; RESP 14; TEMP 36.1; O2SAT 94
[2023-12-10] MEDS: Memantine HCl 5 MG TABLET PO ×2 (08:35→21:47)
[2023-12-10] MEDS: Sertraline HCL 100 MG TABLET PO (08:35)
[2023-12-10] MEDS: Levothyroxine Sodium 150 MCG TABLET PO (08:36)
--- NOTE | 2023-12-10 09:02 | HO.PSYCHPN ---
Subjective Subjective Date of Service: 12/10/23 Reason For Visit: paranoia cognitive impairment Subjective Notes: Conditional Voluntary Interim History: Reviewed with Dr. Gonzalez. Active on unit, social with peers. Pt denies any issues at this time. Patient agreed to receiving Radha Maintena; risks/benefits reviewed. Waiting on placement. Medication Compliance: Yes Side effects from medications: No Attending Groups: Yes Review of Systems Constitutional: Reports as per HPI Eyes: Reports as per HPI Reports as per HPI Cardiovascular: Reports as per HPI Respiratory: Reports as per HPI Gastrointestinal: Reports as per HPI Genitourinary: Reports as per HPI Musculoskeletal: Reports as per HPI Skin/Breast: Reports as per HPI Reports as per HPI Psychiatric: Reports as per HPI Endocrine: Reports as per HPI Hematologic/Lymphatic: Reports as per HPI Allergic/Immunologic: Reports as per HPI 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: Fpc Impaired Diagnostics Vital Signs (24Hr): Vital Signs - 24 hr 12/09/23 10:01 12/09/23 20:00 12/10/23 07:52 Temperature 97.9 F 97.7 F 97.0 F Pulse Rate 78 86 72 Respiratory Rate 14 16 14 Blood Pressure 128/72 127/75 124/72 Pulse Oximetry 96 96 94 Oxygen Delivery Method Room Air Room Air Room Air BMI result Body Mass Index 32.3 Labs 09/10/23 20:00 12/05/23 09:05 Labs: Laboratory Results - last 48 hr 12/08/23 12/08/23 12/08/23 09:03 12:49 17:39 POC Glucose 121 H 110 140 H 12/08/23 12/09/23 12/09/23 20:40 07:30 11:52 POC Glucose 166 H 109 292 H 12/09/23 12/09/23 12/10/23 16:36 20:22 07:32 POC Glucose 169 H 127 H 109 Imaging Radiology Impressions: ITS Impressions Brain MRI 09/19/23 20:33 IMPRESSION: 1. No demonstrated acute intracranial abnormalities. 2. Chronic mild to moderate nonspecific white matter changes, most notably in the deep white matter of the right frontal lobe. Mild to moderate generalized cerebral volume loss. Medications Medications Current Medications Acetaminophen (Acetaminophen 325 Mg Tablet) 650 mg PO Q6H PRN PRN Reason: Headache/Pain Mild Scale (1-3) Last Admin: 10/13/23 09:39 Dose: 650 mg Al Hydroxide/Mg Hydroxide (Magnesium Hydrox/Alum Hydrox 30 Ml Oral.Susp) 30 ml PO Q6H PRN PRN Reason: Heartburn/Nausea Last Admin: 11/27/23 10:48 Dose: 30 ml Aripiprazole (Aripiprazole 10 Mg Tablet) 10 mg PO BEDTIME REPLACED BY [facility] Last Admin: 12/09/23 20:31 Dose: 10 mg Benztropine Mesylate (Benztropine Mesylate 0.5 Mg Tablet) 0.5 mg PO TID PRN PRN Reason: Extrapyramidal Effects Glucose (Glucose Gel 15 Gm Gel..Gram.) 15 gm PO Q15M PRN; Protocol PRN Reason: per Hypoglycemia Standing Ord. Hydroxyzine HCl (Hydroxyzine Hcl 25 Mg Tablet) 25 mg PO Q6H PRN PRN Reason: Anxiety Last Admin: 12/02/23 00:02 Dose: 25 mg Dextrose (D10) 250 mls @ 750 mls/hr IV Q15M PRN; Protocol PRN Reason: per Hypoglycemia Standing Ord. Insulin Glargine (Insulin Glargine,Hum.Rec.Anlog 100 Unit/Ml 10 Ml Vial) 20 unit SUBCUT BEDTIME REPLACED BY [facility] Last Admin: 12/09/23 20:30 Dose: 20 unit Insulin Human Lispro (Insulin Lispro 100 Unit/Ml 3 Ml Vial) 0 unit SUBCUT QIDACHS REPLACED BY [facility]; Protocol Last Admin: 12/10/23 07:46 Dose: Not Given Lamotrigine (Lamotrigine 100 Mg Tablet) 150 mg PO BEDTIME REPLACED BY [facility] Last Admin: 12/09/23 20:31 Dose: 150 mg Levothyroxine Sodium (Levothyroxine Sodium 150 Mcg Tablet) 150 mcg PO DAILY@0800 REPLACED BY [facility] Last Admin: 12/10/23 08:36 Dose: 150 mcg Magnesium Hydroxide (Milk Of Magnesia 30 Ml Oral.Susp) 30 ml PO DAILY PRN PRN Reason: Constipation Memantine (Memantine Hcl 5 Mg Tablet) 5 mg PO BID REPLACED BY [facility] Last Admin: 12/10/23 08:35 Dose: 5 mg Metformin HCl (Metformin Hcl Er 500 Mg Tab.Er.24h) 1,000 mg PO DAILY@1700 REPLACED BY [facility] Last Admin: 12/09/23 16:58 Dose: 1,000 mg Nicotine Polacrilex (Nicotine Polacrilex 2 Mg Gum) 4 mg BUCCAL Q2H PRN PRN Reason: Nicotine Cravings Ondansetron HCl (Ondansetron Odt 8 Mg Tab.Rapdis) 8 mg TRANSLINGU Q8H PRN PRN Reason: Nausea and Vomiting Last Admin: 11/27/23 10:48 Dose: 8 mg Sertraline HCl (Sertraline Hcl 100 Mg Tablet) 100 mg PO DAILY REPLACED BY [facility] Last Admin: 12/10/23 08:35 Dose: 100 mg Simethicone (Simethicone 80 Mg Tab.Chew) 80 mg PO QIDWMHS PRN PRN Reason: Gas Trazodone HCl (Trazodone Hcl 50 Mg Tablet) 50 mg PO BEDTIME MRX1 PRN PRN Reason: Insomnia Last Admin: 12/09/23 23:11 Dose: 50 mg Allergies Allergies Allergy/AdvReac Type Severity Reaction Status Date / Time amoxicillin [AMOXICILLIN] Allergy Mild VOMITING/ABD Verified 09/10/23 19:44 PAIN Assessment & Plan Assessment & Plan (1) Schizoaffective disorder: Status: Acute Code(s): F25.9 - Schizoaffective disorder, unspecified (2) Hypothyroidism: Status: Acute Code(s): E03.9 - Hypothyroidism, unspecified (3) Type 2 diabetes mellitus: Status: Acute Code(s): E11.9 - Type 2 diabetes mellitus without complications (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 Plan: CV 15 minute safety checks Continue home medications: Haldol 10mg PO daily Synthroid 200mcg PO daily Obtain labs; A1C/POCs Obtain collateral from sister Obtain records from last hospitalization. MOCA Referral for [facility] services if patient is agreeable. encourage medication compliance;consider VARGAS discharge planning 09/11: Elevated fasting blood sugar elevated hemoglobin A1c 9.2 med consult placed put in point of care needed will start metformin Would benefit from clarity over recent hospitalization what this were done details regarding treatment continue Haldol unclear if patient has Healthcare proxy his [place] was low slowed cognition with poor details in depth at times during blankly regarding making judgments Unclear if any of this relates to past coma or 2 hypothyroidism. He does seem more impaired than when last seen unclear when last imaging was. Continue Haldol sitter neuro indira involvement regarding diagnostic picture. Patient does remain paranoid blunted suspicious apathetic. He might benefit from longer-term placement if available and appropriate at a later time involved [facility] involvement would be quite helpful 09/12: cont haldol get records ? hcp ? start antidep unclear hx 09/13: Keeping to self. More talkative today. Pt concerned he will be transferred to [facility]. Pt stated, The paper I signed yesterday. Are you going to send me back to the last hospital? That place was horrible . Pt was educated he signed a release of information with Dr. Gonzalez to obtain records from [facility]. Pt was given a copy of the release he signed. Despite this, pt continues to be anxious about being transferred. Pt denies SI/HI/VH/AH. 09/14: Keeping to self. active on unit. showered. Pt reports feeling alright today; pt reports he is worried about where I'm going to go . Pt continues concerned he will be transferred to [facility]. Pt denies SI/HI/VH/AH. 09/15:Pt reports feeling alright today; pt continues to report he is worried about where I'm going to go . Responding with brief responses. Guarded. Observed standing in one place for a long period of time. Appears confused. Pt denies SI/HI/VH/AH. T/W spoke to patient's sister, Ros, with patients verbal consent. Ros reports concerns regarding patients ability to make decisions regarding his mental and physical health. She plans on contacting legal advice on obtaining guardianship of patient. 09/16:Patient's presents similar to yesterday's presentation. Responding with brief responses. Guarded. Observed standing in one place for a long period of time, when asked what he is doing, pt stated, I don't know . Pt reports he plans on contacting his sister today and try to convince her for me to stay there . Pt denies SI/HI/VH/AH. Continue current tx plan. 09/17: brief responses. Guarded. Continues to health information managers one place for a long period of time, when asked what he is doing, pt stated, I don't know . Pt denies SI/HI/VH/AH. T/W and Dr. Gonzalez spoke to patient's sister, Ros. Ros stated being [facility] HCP and plans on finding document. She plans on coming to the hospital on Saturday to be present for [facility] intake. 09/21: No changes 09/22:Patient flat apathetic difficult insight and judgment his sister is healthcare proxy if needed patient is accepting medical treatment Referral to [facility] 09/23:Considers starting Haldol Decanoate patient is agreeable superficially difficulty with exec fx was seen [facility] 09/24:Pt seen in f/u mood flat dysphoric difficulty engaging in conversation preoccupied with thought he wont be living with family thing slowed apathetic no clear response with namenda ? some improvement inc lamictal start low dose sertraline inc lamictal ck tsh 09/25:Start Abilify as augmentation with Haldol see if can be more stimulating regarding depressed mood apathetic limited engagement sertraline 50 mg Lamictal 25 b.i.d. referral to [facility] which would have structure unclear if patient can engage with this he remains quite depressed has delusional beliefs regarding housing and that things have been done he has repeatedly tried to reach out to his sister denies active SI needs much help dressing talking with others encouragement to eat severe thought blocking Abilify might be more stimulating than Haldol which can be more dulling 09/26:Abilify started sertraline Lamictal encouraged step-down to [facility] encourage reality orientation denies active SI 09/27: Continue current regimen and plans 09/28: Continue current regimen and plans. 09/29: Referral to [facility] increase Abilify to 5 mg daily eventually try and taper Haldol sertraline 50 mg daily 09/30:Increase Abilify to 10 mg lower Haldol to 7 mg continue sertraline and Lamictal 10/01:Abilify increased to 10 mg continue to taper Haldol sertraline 100 mg Lamictal increased to 75 mg patient apathetic withdrawn difficulty with placement some paranoia continues difficulty with decision making at times. Not physically aggressive internally preoccupied seems somewhat improved with Abilify sertraline Continue discharge planning 10/02:Patient somewhat blunted flat slowed thinking during the day times staring. Change Abilify to 10 mg at bedtime. Scheduled Haldol will lowered to 2.5 mg Continue sertraline 100 mg Namenda 5 b.i.d. 10/03:Haldol discontinued modafinil low-dose monitor for psychosis or agitation continue discharge planning 10/06: May need to firm healthcare proxy calls have been placed to sister to try to help in discharge planning. Referrals made. Patient cooperative with care 10/07:Pharmacy ordering Abilify maintain a increase modafinil 100 mg patient remains flat passive depressed some improvement noted no current paranoia noted continue discharge planning no current safe discharge plan 10/08: Increase Lamictal 100 mg Abilify Maintena 400 mg hold modafinil unclear if was overly stimulating patient continues to present internally preoccupied. 10/09:Healthcare proxy invoked discharge planning continue Lamictal Abilify pending maintain a 10/10:Healthcare proxy invoked new CV signed discharge planning. 10/11 keep same treatment 10/12 keep same treatment 10/13: Continue plan of care Lamictal Abilify discharge planning sertraline 10/14: stable. continue current mgmt. 10/15: stable. continue current mgmt. 10/16: stable presentation. continue current mgmt. 10/17: as for yesterday. 10/18: no changes. 10/19: stabel, safe. no change. 10/20: no change in presentation. calm, cooperative. active on unit, social with select peers, attending groups. Pt reports feeling alright . denies SI/HI/VH/AH. Social work waiting to hear from possible placement location. Continue current tx plan. 10/21: continue current tx plan. awaiting placement. 10/22: calm, cooperative. active on unit, social with select peers, attending groups. Pt reports feeling good ; pt stated, I'm waiting to see where I'm going . denies SI/HI/VH/AH. Showered with encouragement. 10/23: continue current tx plan. 10/24: calm, cooperative. active on unit, social with select peers, attending groups. Pt reports feeling good ; pt stated, I just want a place to live . 10/25- likely at baseline for him- CTP 10/26 CTP likely needs placement 10/27: continue current tx plan. awaiting placement. 10/28: Similar to yesterday. No change in presentation. 10/29: Pt reports feeling good ;pt stated, just waiting for a place to live . denies any issues at this time. 10/30: calm, cooperative. active on unit, social with select peers, attending groups. Pt reports feeling worried about where I am going to live . denies any issues at this time. 10/21: no change in presentation. continue current tx plan. 11/01: continue current management and treatment plan. 11/02: Continue current management and treatment plan. 11/03: Continue current management and treatment plan. 11/04: Active on unit. calm, cooperative. social with select peers, attending groups. denies any issues at this time. He reports sleeping well. Pt reports he would be interested in applying for [facility] services; social work aware. 11/05: Active on unit. calm, cooperative. social with select peers, attending groups. denies any issues at this time. Pt reports feeling okay ; he reports anxiety regarding placement. Continue current tx plan. 11/07/23 DM referral has appropriate concerns re living stuation cont abilify lamictal 11/08/23 Pt cooperative with care d/c planning working with cont d/c planning cont lamictal abilify 11/12/23 Patient increasingly despairing aware of no clear discharge plan periods needs cuing for much functioning limited social engaged needs help regarding diabetes and medication compliance reportedly had been rejected by multiple rest homes patient not threatening intermittently hopeless helpless very limited family contact at this time 11/13/23 pt flat depressed hopeless helpless unable to fx without structure 11/15 continue tx. 11/16 continue tx. 11/18/2023 Continue plan of care referral to [facility] TSH low will decrease levothyroxine 11/19/23 Pt flat dysphor ic inc hopeless helpless lamictal 150 hs dec levothyroxine 150 d/c planning cont 11/20/23 lamictal inc d/c planning [facility] 12/02/2023 Continue Lamictal Abilify patient cooperative with care gets despairing at times regarding lack of family support problematic discharge planning in relationship to finding suitable structured place to live 12/02: Social with peers. Per nursing, pt did not sleep last night. Pt reports he did not sleeping because he wasn't tired but feel okay ; ordered Ativan 1mg PO bedtime for tonight, pt aware. 12/03: In bed sleeping, pt reports he is catching up on sleep from the night before. Calm, cooperative. T/W and automotive tire worker, Billie, with pt to discuss possibly going to the [facility]. Pt reports he would like to call his sister and speak to her before deciding. DC Ativan. 12/04: Active on unit, social with peers. attending groups. T/W and automotive tire worker, Billie, met with pt to discuss discharge plan. Pt reports he doesn't know if he would want to go to a homeless skilled nursing; he states he would rather live on the street because I've done it before . Pt encouraged to consider benefits of going to a skilled nursing with the winter months coming; he agreed to doing phone intake with school social worker on Saturday with [facility]. 12/05: Pt presents similar to yesterday. Continues to perseverate about [facility] being a skilled nursing and not a program; He continues to agree to do phone intake on Saturday. Discussed VARGAS, pt reports he want time to consider d/t not liking needles . 12/08: Pt had phone interview with [facility], however, after multiple attempts at calling them, no one at [facility] picked up the phone to conduct interview. automotive tire worker to get into contact with them again. Pt denies any issues at this time. 12/09: Active on unit, social with peers. Pt denies any issues at this time. Patient agreed to receiving Abilify Maintena; risks/benefits reviewed. Waiting on placement. Patient educated on: diagnosis and medication risk/benefits Reason for continued inpatient stay Substantial Risk for: other Time Spent With Patient Time: Total time managing care of this patient today _20___ minutes.
[2023-12-10 11:50] LABS: Glucose, Whole Blood 140 mg/dL (60-115)
[2023-12-10 16:41] LABS: Glucose, Whole Blood 182 mg/dL (60-115)
[2023-12-10] MEDS: Insulin Lispro 100 UNIT/ML 3 ML VIAL SUBCUT (17:01)
[2023-12-10] MEDS: metFORMIN HCl ER 500 MG TAB.ER.24H 1000 MG PO (17:02)
[2023-12-10] MEDS: ARIPIPRAZOLE 300 MG IM (17:14)
[2023-12-10 20:00] VITALS: BP 124/78; PULSE 82; RESP 16; TEMP 36.7; O2SAT 96
[2023-12-10 21:09] LABS: Glucose, Whole Blood 147 mg/dL (60-115)
[2023-12-10] MEDS: lamoTRIgine 100 MG TABLET 150 MG PO (21:47)
[2023-12-10] MEDS: Insulin Glargine,Hum.rec.anlog 100 UNIT/ML 10 ML VIAL 20 UNIT SUBCUT (21:47)
[2023-12-10] MEDS: ARIPiprazole 10 MG TABLET PO (21:47)
[2023-12-10] MEDS: traZODone HCL 50 MG TABLET PO (23:00)
[2023-12-11 07:53] LABS: Glucose, Whole Blood 133 mg/dL (60-115)
[2023-12-11 08:00] VITALS: BP 129/69; PULSE 72; RESP 16; TEMP 37.2; O2SAT 98
[2023-12-11] MEDS: Memantine HCl 5 MG TABLET PO ×2 (08:32→22:13)
[2023-12-11] MEDS: Sertraline HCL 100 MG TABLET PO (08:32)
[2023-12-11] MEDS: Levothyroxine Sodium 150 MCG TABLET PO (08:32)
--- NOTE | 2023-12-11 08:56 | P.PNPSI_ITS ---
Subjective Subjective Date of Service: 12/11/23 Reason For Visit: paranoia cognitive impairment Subjective Notes: Conditional Voluntary Interim History: Reviewed with Dr. Gonzalez. Active on unit, social with peers. Pt denies any issues at this time. Patient received Abilify Maintena yesterday. He denies any side effects. Pleasant. Waiting on placement. Medication Compliance: Yes Side effects from medications: No Review of Systems Constitutional: Reports as per HPI Eyes: Reports as per HPI Reports as per HPI Cardiovascular: Reports as per HPI Respiratory: Reports as per HPI Gastrointestinal: Reports as per HPI Genitourinary: Reports as per HPI Musculoskeletal: Reports as per HPI Skin/Breast: Reports as per HPI Reports as per HPI Psychiatric: Reports as per HPI Endocrine: Reports as per HPI Hematologic/Lymphatic: Reports as per HPI Allergic/Immunologic: Reports as per HPI 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 Vital Signs (24Hr): Vital Signs - 24 hr 12/10/23 20:00 12/11/23 08:00 Temperature 98.1 F 98.9 F Pulse Rate 82 72 Respiratory Rate 16 16 Blood Pressure 124/78 129/69 Pulse Oximetry 96 98 Oxygen Delivery Method Room Air Room Air BMI result Body Mass Index 32.3 Labs 09/10/23 20:00 12/05/23 09:05 Labs: Laboratory Results - last 48 hr 12/09/23 12/09/23 12/09/23 11:52 16:36 20:22 POC Glucose 292 H 169 H 127 H 12/10/23 12/10/23 12/10/23 07:32 11:40 16:36 POC Glucose 109 140 H 182 H 12/10/23 12/11/23 21:02 07:48 POC Glucose 147 H 133 H Imaging Radiology Impressions: ITS Impressions Brain MRI 09/19/23 20:33 IMPRESSION: 1. No demonstrated acute intracranial abnormalities. 2. Chronic mild to moderate nonspecific white matter changes, most notably in the deep white matter of the right frontal lobe. Mild to moderate generalized cerebral volume loss. Medications Medications Current Medications Acetaminophen (Acetaminophen 325 Mg Tablet) 650 mg PO Q6H PRN PRN Reason: Headache/Pain Mild Scale (1-3) Last Admin: 10/13/23 09:39 Dose: 650 mg Al Hydroxide/Mg Hydroxide (Magnesium Hydrox/Alum Hydrox 30 Ml Oral.Susp) 30 ml PO Q6H PRN PRN Reason: Heartburn/Nausea Last Admin: 11/27/23 10:48 Dose: 30 ml Aripiprazole (Aripiprazole 10 Mg Tablet) 10 mg PO BEDTIME [facility] Last Admin: 12/10/23 21:47 Dose: 10 mg Aripiprazole (Aripiprazole Er 300 Mg Suser.Syr) 300 mg IM Q28D [facility] Last Admin: 12/10/23 17:14 Dose: 300 mg Benztropine Mesylate (Benztropine Mesylate 0.5 Mg Tablet) 0.5 mg PO TID PRN PRN Reason: Extrapyramidal Effects Glucose (Glucose Gel 15 Gm Gel..Gram.) 15 gm PO Q15M PRN; Protocol PRN Reason: per Hypoglycemia Standing Ord. Hydroxyzine HCl (Hydroxyzine Hcl 25 Mg Tablet) 25 mg PO Q6H PRN PRN Reason: Anxiety Last Admin: 12/02/23 00:02 Dose: 25 mg Dextrose (D10) 250 mls @ 750 mls/hr IV Q15M PRN; Protocol PRN Reason: per Hypoglycemia Standing Ord. Insulin Glargine (Insulin Glargine,Hum.Rec.Anlog 100 Unit/Ml 10 Ml Vial) 20 unit SUBCUT BEDTIME [facility] Last Admin: 12/10/23 21:47 Dose: 20 unit Insulin Human Lispro (Insulin Lispro 100 Unit/Ml 3 Ml Vial) 0 unit SUBCUT QIDACHS [facility]; Protocol Last Admin: 12/11/23 08:32 Dose: Not Given Lamotrigine (Lamotrigine 100 Mg Tablet) 150 mg PO BEDTIME [facility] Last Admin: 12/10/23 21:47 Dose: 150 mg Levothyroxine Sodium (Levothyroxine Sodium 150 Mcg Tablet) 150 mcg PO DAILY@0800 [facility] Last Admin: 12/11/23 08:32 Dose: 150 mcg Magnesium Hydroxide (Milk Of Magnesia 30 Ml Oral.Susp) 30 ml PO DAILY PRN PRN Reason: Constipation Memantine (Memantine Hcl 5 Mg Tablet) 5 mg PO BID [facility] Last Admin: 12/11/23 08:32 Dose: 5 mg Metformin HCl (Metformin Hcl Er 500 Mg Tab.Er.24h) 1,000 mg PO DAILY@1700 [facility] Last Admin: 12/10/23 17:02 Dose: 1,000 mg Nicotine Polacrilex (Nicotine Polacrilex 2 Mg Gum) 4 mg BUCCAL Q2H PRN PRN Reason: Nicotine Cravings Ondansetron HCl (Ondansetron Odt 8 Mg Tab.Rapdis) 8 mg TRANSLINGU Q8H PRN PRN Reason: Nausea and Vomiting Last Admin: 11/27/23 10:48 Dose: 8 mg Sertraline HCl (Sertraline Hcl 100 Mg Tablet) 100 mg PO DAILY [facility] Last Admin: 12/11/23 08:32 Dose: 100 mg Simethicone (Simethicone 80 Mg Tab.Chew) 80 mg PO QIDWMHS PRN PRN Reason: Gas Trazodone HCl (Trazodone Hcl 50 Mg Tablet) 50 mg PO BEDTIME MRX1 PRN PRN Reason: Insomnia Last Admin: 12/10/23 23:00 Dose: 50 mg Allergies Allergies Allergy/AdvReac Type Severity Reaction Status Date / Time amoxicillin [AMOXICILLIN] Allergy Mild VOMITING/ABD Verified 09/10/23 19:44 PAIN Assessment & Plan Assessment & Plan (1) Schizoaffective disorder: Status: Acute Code(s): F25.9 - Schizoaffective disorder, unspecified (2) Hypothyroidism: Status: Acute Code(s): E03.9 - Hypothyroidism, unspecified (3) Type 2 diabetes mellitus: Status: Acute Code(s): E11.9 - Type 2 diabetes mellitus without complications (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 on a Section 12 d/t disorganized behavior, concern for his memory impairment, medications noncompliance and poor ADLs. Plan: CV 15 minute safety checks Continue home medications: Haldol 10mg PO daily Synthroid 200mcg PO daily Obtain labs; A1C/POCs Obtain collateral from sister Obtain records from last hospitalization. MOCA Referral for [facility] services if patient is agreeable. encourage medication compliance;consider VARGAS discharge planning 09/11: Elevated fasting blood sugar elevated hemoglobin A1c 9.2 med consult placed put in point of care needed will start metformin Would benefit from clarity over recent hospitalization what this were done details regarding treatment continue Haldol unclear if patient has Healthcare proxy his [place] was low slowed cognition with poor details in depth at times during blankly regarding making judgments Unclear if any of this relates to past coma or 2 hypothyroidism. He does seem more impaired than when last seen unclear when last imaging was. Continue Haldol sitter neuro indira involvement regarding diagnostic picture. Patient does remain paranoid blunted suspicious apathetic. He might benefit from longer- term placement if available and appropriate at a later time involved [facility] involvement would be quite helpful 09/12: cont haldol get records ? hcp ? start antidep unclear hx 09/13: Keeping to self. More talkative today. Pt concerned he will be transferred to [facility]. Pt stated, The paper I signed yesterday. Are you going to send me back to the last hospital? That place was horrible . Pt was educated he signed a release of information with Dr. Gonzalez to obtain records from [facility]. Pt was given a copy of the release he signed. Despite this, pt continues to be anxious about being transferred. Pt denies SI/HI/VH/AH. 09/14: Keeping to self. active on unit. showered. Pt reports feeling alright today; pt reports he is worried about where I'm going to go . Pt continues concerned he will be transferred to [facility]. Pt denies SI/HI/VH/AH. 09/15:Pt reports feeling alright today; pt continues to report he is worried about where I'm going to go . Responding with brief responses. Guarded. Observed standing in one place for a long period of time. Appears confused. Pt denies SI/HI/VH/AH. T/W spoke to patient's sister, Ros, with patients verbal consent. Ros reports concerns regarding patients ability to make decisions regarding his mental and physical health. She plans on contacting legal advice on obtaining guardianship of patient. 09/16:Patient's presents similar to yesterday's presentation. Responding with brief responses. Guarded. Observed standing in one place for a long period of time, when asked what he is doing, pt stated, I don't know . Pt reports he plans on contacting his sister today and try to convince her for me to stay there . Pt denies SI/HI/VH/AH. Continue current tx plan. 09/17: brief responses. Guarded. 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 Pt denies SI/HI/VH/AH. T/W and Dr. Gonzalez spoke to patient's sister, Ros. Ros stated being [place] HCP and plans on finding document. She plans on coming to the hospital on Saturday to be present for [facility] intake. 09/21: No changes 09/22:Patient flat apathetic difficult insight and judgment his sister is healthcare proxy if needed patient is accepting medical treatment Referral to [facility] 09/23:Considers starting Haldol Decanoate patient is agreeable superficially difficulty with exec fx was seen [facility] 09/24:Pt seen in f/u mood flat dysphoric difficulty engaging in conversation preoccupied with thought he wont be living with family thing slowed apathetic no clear response with namenda ? some improvement inc lamictal start low dose sertraline inc lamictal ck tsh 09/25:Start Abilify as augmentation with Haldol see if can be more stimulating regarding depressed mood apathetic limited engagement sertraline 50 mg Lamictal 25 b.i.d. referral to [facility] which would have structure unclear if patient can engage with this he remains quite depressed has delusional beliefs regarding housing and that things have been done he has repeatedly tried to reach out to his sister denies active SI needs much help dressing talking with others encouragement to eat severe thought blocking Abilify might be more stimulating than Haldol which can be more dulling 09/26:Abilify started sertraline Lamictal encouraged step-down to [facility] encourage reality orientation denies active SI 09/27: Continue current regimen and plans 09/28: Continue current regimen and plans. 09/29: Referral to [facility] increase Abilify to 5 mg daily eventually try and taper Haldol sertraline 50 mg daily 09/30:Increase Abilify to 10 mg lower Haldol to 7 mg continue sertraline and Lamictal 10/01:Abilify increased to 10 mg continue to taper Haldol sertraline 100 mg Lamictal increased to 75 mg patient apathetic withdrawn difficulty with placement some paranoia continues difficulty with decision making at times. Not physically aggressive internally preoccupied seems somewhat improved with Abilify sertraline Continue discharge planning 10/02:Patient somewhat blunted flat slowed thinking during the day times staring. Change Abilify to 10 mg at bedtime. Scheduled Haldol will lowered to 2.5 mg Continue sertraline 100 mg Namenda 5 b.i.d. 10/03:Haldol discontinued modafinil low-dose monitor for psychosis or agitation continue discharge planning 10/06: May need to firm healthcare proxy calls have been placed to sister to try to help in discharge planning. Referrals made. Patient cooperative with care 10/07:Pharmacy ordering Abilify maintain a increase modafinil 100 mg patient remains flat passive depressed some improvement noted no current paranoia noted continue discharge planning no current safe discharge plan 10/08: Increase Lamictal 100 mg Abilify Maintena 400 mg hold modafinil unclear if was overly stimulating patient continues to present internally preoccupied. 10/09:Healthcare proxy invoked discharge planning continue Lamictal Abilify pending maintain a 10/10:Healthcare proxy invoked new CV signed discharge planning. 10/11 keep same treatment 10/12 keep same treatment 10/13: Continue plan of care Lamictal Abilify discharge planning sertraline 10/14: stable. continue current mgmt. 10/15: stable. continue current mgmt. 10/16: stable presentation. continue current mgmt. 10/17: as for yesterday. 10/18: no changes. 10/19: stabel, safe. no change. 10/20: no change in presentation. calm, cooperative. active on unit, social with select peers, attending groups. Pt reports feeling alright . denies SI/HI/VH/AH. Social work waiting to hear from possible placement location. Continue current tx plan. 10/21: continue current tx plan. awaiting placement. 10/22: calm, cooperative. active on unit, social with select peers, attending groups. Pt reports feeling good ; pt stated, I'm waiting to see where I'm going . denies SI/HI/VH/AH. Showered with encouragement. 10/23: continue current tx plan. 10/24: calm, cooperative. active on unit, social with select peers, attending groups. Pt reports feeling good ; pt stated, I just want a place to live . 10/25- likely at baseline for him- CTP 10/26 CTP likely needs placement 10/27: continue current tx plan. awaiting placement. 10/28: Similar to yesterday. No change in presentation. 10/29: Pt reports feeling good ;pt stated, just waiting for a place to live . denies any issues at this time. 10/30: calm, cooperative. active on unit, social with select peers, attending groups. Pt reports feeling worried about where I am going to live . denies any issues at this time. 10/21: no change in presentation. continue current tx plan. 11/01: continue current management and treatment plan. 11/02: Continue current management and treatment plan. 11/03: Continue current management and treatment plan. 11/04: Active on unit. calm, cooperative. social with select peers, attending groups. denies any issues at this time. He reports sleeping well. Pt reports he would be interested in applying for [facility] services; social work aware. 11/05: Active on unit. calm, cooperative. social with select peers, attending groups. denies any issues at this time. Pt reports feeling okay ; he reports anxiety regarding placement. Continue current tx plan. 11/07/23 [facility]H referral has appropriate concerns re living stuation cont abilify lamictal 11/08/23 Pt cooperative with care d/c planning working with sw cont d/c planning cont lamictal abilify 11/12/23 Patient increasingly despairing aware of no clear discharge plan periods needs cuing for much functioning limited social engaged needs help regarding diabetes and medication compliance reportedly had been rejected by multiple rest homes patient not threatening intermittently hopeless helpless very limited family contact at this time 11/13/23 pt flat depressed hopeless helpless unable to fx without structure 11/15 continue tx. 11/16 continue tx. 11/18/2023 Continue plan of care referral to [facility] TSH low will decrease levothyroxine 11/19/23 Pt flat dysphor ic inc hopeless helpless lamictal 150 hs dec levothyroxine 150 d/c planning cont 11/20/23 lamictal inc d/c planning dm referral 12/02/2023 Continue Lamictal Abilify patient cooperative with care gets despairing at times regarding lack of family support problematic discharge planning in relationship to finding suitable structured place to live 12/02: Social with peers. Per nursing, pt did not sleep last night. Pt reports he did not sleeping because he wasn't tired but feel okay ; ordered Ativan 1mg PO bedtime for tonight, pt aware. 12/03: In bed sleeping, pt reports he is catching up on sleep from the night before. Calm, cooperative. T/W and photofinishing laboratory worker, Billie, with pt to discuss possibly going to the [facility]. Pt reports he would like to call his sister and speak to her before deciding. DC Ativan. 12/04: Active on unit, social with peers. attending groups. T/W and photofinishing laboratory worker, Billie, met with pt to discuss discharge plan. Pt reports he doesn't know if he would want to go to a homeless residential; he states he would rather live on the street because I've done it before . Pt encouraged to consider benefits of going to a residential with the winter months coming; he agreed to doing phone intake with social and political studies professor on Saturday with [facility]. 12/05: Pt presents similar to yesterday. Continues to perseverate about [facility] being a residential and not a program; He continues to agree to do phone intake on Saturday. Discussed VARGAS, pt reports he want time to consider d/t not liking needles . 12/08: Pt had phone interview with [facility], however, after multiple attempts at calling them, no one at [facility] picked up the phone to conduct interview. photofinishing laboratory worker to get into contact with them again. Pt denies any issues at this time. 12/09: Active on unit, social with peers. Pt denies any issues at this time. Patient agreed to receiving Abilify Maintena; risks/benefits reviewed. Waiting on placement. 12/10: Patient received Abilify Maintena yesterday. He denies any side effects. Pleasant. Waiting on placement. Patient educated on: medication risk/benefits Reason for continued inpatient stay Substantial Risk for: other Time Spent With Patient Time: Total time managing care of this patient today _20___ minutes.
[2023-12-11 11:50] LABS: Glucose, Whole Blood 255 mg/dL (60-115)
[2023-12-11] MEDS: Insulin Lispro 100 UNIT/ML 3 ML VIAL SUBCUT (12:18)
[2023-12-11 16:46] LABS: Glucose, Whole Blood 86 mg/dL (60-115)
[2023-12-11] MEDS: metFORMIN HCl ER 500 MG TAB.ER.24H 1000 MG PO (16:48)
[2023-12-11 20:00] VITALS: BP 126/60; PULSE 88; RESP 16; TEMP 36.6; O2SAT 97
[2023-12-11 21:19] LABS: Glucose, Whole Blood 113 mg/dL (60-115)
[2023-12-11] MEDS: Insulin Glargine,Hum.rec.anlog 100 UNIT/ML 10 ML VIAL 20 UNIT SUBCUT (22:12)
[2023-12-11] MEDS: traZODone HCL 50 MG TABLET PO (22:13)
[2023-12-11] MEDS: ARIPiprazole 10 MG TABLET PO (22:13)
[2023-12-11] MEDS: lamoTRIgine 100 MG TABLET 150 MG PO (22:13)
[2023-12-12 08:00] VITALS: BP 118/73; PULSE 74; RESP 16; TEMP 36.4; O2SAT 96
[2023-12-12] MEDS: Memantine HCl 5 MG TABLET PO ×2 (08:25→21:21)
[2023-12-12] MEDS: Sertraline HCL 100 MG TABLET PO (08:25)
[2023-12-12] MEDS: Levothyroxine Sodium 150 MCG TABLET PO (08:25)
--- NOTE | 2023-12-12 09:16 | P.PNPSI_ITS ---
Subjective Subjective Date of Service: 12/12/23 Reason For Visit: paranoia cognitive impairment Subjective Notes: Conditional Voluntary Interim History: Reviewed with Dr. Gonzalez. Active on unit, social with peers. Pt denies any issues at this time. Waiting on placement. Medication Compliance: Yes Side effects from medications: No Attending Groups: Yes Review of Systems Constitutional: Reports as per HPI Eyes: Reports as per HPI Reports as per HPI Cardiovascular: Reports as per HPI Respiratory: Reports as per HPI Gastrointestinal: Reports as per HPI Genitourinary: Reports as per HPI Musculoskeletal: Reports as per HPI Skin/Breast: Reports as per HPI Reports as per HPI Psychiatric: Reports as per HPI Endocrine: Reports as per HPI Hematologic/Lymphatic: Reports as per HPI Allergic/Immunologic: Reports as per HPI 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: Mcfp Impaired Diagnostics Vital Signs (24Hr): Vital Signs - 24 hr 12/11/23 20:00 12/12/23 08:00 Temperature 97.8 F 97.6 F Pulse Rate 88 74 Respiratory Rate 16 16 Blood Pressure 126/60 118/73 Pulse Oximetry 97 96 Oxygen Delivery Method Room Air Room Air BMI result Body Mass Index 32.3 Labs 09/10/23 20:00 12/05/23 09:05 Labs: Laboratory Results - last 48 hr 12/10/23 12/10/23 12/10/23 11:40 16:36 21:02 POC Glucose 140 H 182 H 147 H 12/11/23 12/11/23 12/11/23 07:48 11:43 16:38 POC Glucose 133 H 255 H 86 12/11/23 21:15 POC Glucose 113 Imaging Radiology Impressions: ITS Impressions Brain MRI 09/19/23 20:33 IMPRESSION: 1. No demonstrated acute intracranial abnormalities. 2. Chronic mild to moderate nonspecific white matter changes, most notably in the deep white matter of the right frontal lobe. Mild to moderate generalized cerebral volume loss. Medications Medications Current Medications Acetaminophen (Acetaminophen 325 Mg Tablet) 650 mg PO Q6H PRN PRN Reason: Headache/Pain Mild Scale (1-3) Last Admin: 10/13/23 09:39 Dose: 650 mg Al Hydroxide/Mg Hydroxide (Magnesium Hydrox/Alum Hydrox 30 Ml Oral.Susp) 30 ml PO Q6H PRN PRN Reason: Heartburn/Nausea Last Admin: 11/27/23 10:48 Dose: 30 ml Aripiprazole (Aripiprazole 10 Mg Tablet) 10 mg PO BEDTIME [facility] Last Admin: 12/11/23 22:13 Dose: 10 mg Aripiprazole (Aripiprazole Er 300 Mg Suser.Syr) 300 mg IM Q28D [facility] Last Admin: 12/10/23 17:14 Dose: 300 mg Benztropine Mesylate (Benztropine Mesylate 0.5 Mg Tablet) 0.5 mg PO TID PRN PRN Reason: Extrapyramidal Effects Glucose (Glucose Gel 15 Gm Gel..Gram.) 15 gm PO Q15M PRN; Protocol PRN Reason: per Hypoglycemia Standing Ord. Hydroxyzine HCl (Hydroxyzine Hcl 25 Mg Tablet) 25 mg PO Q6H PRN PRN Reason: Anxiety Last Admin: 12/02/23 00:02 Dose: 25 mg Dextrose (D10) 250 mls @ 750 mls/hr IV Q15M PRN; Protocol PRN Reason: per Hypoglycemia Standing Ord. Insulin Glargine (Insulin Glargine,Hum.Rec.Anlog 100 Unit/Ml 10 Ml Vial) 20 unit SUBCUT BEDTIME [facility] Last Admin: 12/11/23 22:12 Dose: 20 unit Insulin Human Lispro (Insulin Lispro 100 Unit/Ml 3 Ml Vial) 0 unit SUBCUT QIDACHS [facility]; Protocol Last Admin: 12/12/23 08:26 Dose: Not Given Lamotrigine (Lamotrigine 100 Mg Tablet) 150 mg PO BEDTIME [facility] Last Admin: 12/11/23 22:13 Dose: 150 mg Levothyroxine Sodium (Levothyroxine Sodium 150 Mcg Tablet) 150 mcg PO DAILY@0800 [facility] Last Admin: 12/12/23 08:25 Dose: 150 mcg Magnesium Hydroxide (Milk Of Magnesia 30 Ml Oral.Susp) 30 ml PO DAILY PRN PRN Reason: Constipation Memantine (Memantine Hcl 5 Mg Tablet) 5 mg PO BID [facility] Last Admin: 12/12/23 08:25 Dose: 5 mg Metformin HCl (Metformin Hcl Er 500 Mg Tab.Er.24h) 1,000 mg PO DAILY@1700 [facility] Last Admin: 12/11/23 16:48 Dose: 1,000 mg Ondansetron HCl (Ondansetron Odt 8 Mg Tab.Rapdis) 8 mg TRANSLINGU Q8H PRN PRN Reason: Nausea and Vomiting Last Admin: 11/27/23 10:48 Dose: 8 mg Sertraline HCl (Sertraline Hcl 100 Mg Tablet) 100 mg PO DAILY [facility] Last Admin: 12/12/23 08:25 Dose: 100 mg Simethicone (Simethicone 80 Mg Tab.Chew) 80 mg PO QIDWMHS PRN PRN Reason: Gas Trazodone HCl (Trazodone Hcl 50 Mg Tablet) 50 mg PO BEDTIME MRX1 PRN PRN Reason: Insomnia Last Admin: 12/11/23 22:13 Dose: 50 mg Allergies Allergies Allergy/AdvReac Type Severity Reaction Status Date / Time amoxicillin [AMOXICILLIN] Allergy Mild VOMITING/ABD Verified 09/10/23 19:44 PAIN Assessment & Plan Assessment & Plan (1) Schizoaffective disorder: Status: Acute Code(s): F25.9 - Schizoaffective disorder, unspecified (2) Hypothyroidism: Status: Acute Code(s): E03.9 - Hypothyroidism, unspecified (3) Type 2 diabetes mellitus: Status: Acute Code(s): E11.9 - Type 2 diabetes mellitus without complications (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 Plan: CV 15 minute safety checks Continue home medications: Haldol 10mg PO daily Synthroid 200mcg PO daily Obtain labs; A1C/POCs Obtain collateral from sister Obtain records from last hospitalization. MOCA Referral for [facility] services if patient is agreeable. encourage medication compliance;consider VARGAS discharge planning 09/11: Elevated fasting blood sugar elevated hemoglobin A1c 9.2 med consult placed put in point of care needed will start metformin Would benefit from clarity over recent hospitalization what this were done details regarding treatment continue Haldol unclear if patient has Healthcare proxy his Sullivan was low slowed cognition with poor details in depth at times during blankly regarding making judgments Unclear if any of this relates to past coma or 2 hypothyroidism. He does seem more impaired than when last seen unclear when last imaging was. Continue Haldol sitter neuro indira involvement regarding diagnostic picture. Patient does remain paranoid blunted suspicious apathetic. He might benefit from longer- term placement if available and appropriate at a later time involved [facility] involvement would be quite helpful 09/12: cont haldol get records ? hcp ? start antidep unclear hx 09/13: Keeping to self. More talkative today. Pt concerned he will be transferred to [facility]. Pt stated, The paper I signed yesterday. Are you going to send me back to the last hospital? That place was horrible . Pt was educated he signed a release of information with Dr. Gonzalez to obtain records from [facility]. Pt was given a copy of the release he signed. Despite this, pt continues to be anxious about being transferred. Pt denies SI/HI/VH/AH. 09/14: Keeping to self. active on unit. showered. Pt reports feeling alright today; pt reports he is worried about where I'm going to go . Pt continues concerned he will be transferred to [facility]. Pt denies SI/HI/VH/AH. 09/15:Pt reports feeling alright today; pt continues to report he is worried about where I'm going to go . Responding with brief responses. Guarded. Observed standing in one place for a long period of time. Appears confused. Pt denies SI/HI/VH/AH. T/W spoke to patient's sister, Ros, with patients verbal consent. Ros reports concerns regarding patients ability to make decisions regarding his mental and physical health. She plans on contacting legal advice on obtaining guardianship of patient. 09/16:Patient's presents similar to yesterday's presentation. Responding with brief responses. Guarded. Observed standing in one place for a long period of time, when asked what he is doing, pt stated, I don't know . Pt reports he plans on contacting his sister today and try to convince her for me to stay there . Pt denies SI/HI/VH/AH. Continue current tx plan. 09/17: brief responses. Guarded. Continues to continuous improvement black belt one place for a long period of time, when asked what he is doing, pt stated, I don't know . Pt denies SI/HI/VH/AH. T/W and Dr. Gonzalez spoke to patient's sister, Ros. Ros stated being [place] HCP and plans on finding document. She plans on coming to the hospital on Saturday to be present for [facility] intake. 09/21: No changes 09/22:Patient flat apathetic difficult insight and judgment his sister is healthcare proxy if needed patient is accepting medical treatment Referral to [facility] 09/23:Considers starting Haldol Decanoate patient is agreeable superficially difficulty with exec fx was seen [facility] 09/24:Pt seen in f/u mood flat dysphoric difficulty engaging in conversation preoccupied with thought he wont be living with family thing slowed apathetic no clear response with namenda ? some improvement inc lamictal start low dose sertraline inc lamictal ck tsh 09/25:Start Abilify as augmentation with Haldol see if can be more stimulating regarding depressed mood apathetic limited engagement sertraline 50 mg Lamictal 25 b.i.d. referral to [facility] which would have structure unclear if patient can engage with this he remains quite depressed has delusional beliefs regarding housing and that things have been done he has repeatedly tried to reach out to his sister denies active SI needs much help dressing talking with others encouragement to eat severe thought blocking Abilify might be more stimulating than Haldol which can be more dulling 09/26:Abilify started sertraline Lamictal encouraged step-down to [facility] encourage reality orientation denies active SI 09/27: Continue current regimen and plans 09/28: Continue current regimen and plans. 09/29: Referral to [facility] increase Abilify to 5 mg daily eventually try and taper Haldol sertraline 50 mg daily 09/30:Increase Abilify to 10 mg lower Haldol to 7 mg continue sertraline and Lamictal 10/01:Abilify increased to 10 mg continue to taper Haldol sertraline 100 mg Lamictal increased to 75 mg patient apathetic withdrawn difficulty with placement some paranoia continues difficulty with decision making at times. Not physically aggressive internally preoccupied seems somewhat improved with Abilify sertraline Continue discharge planning 10/02:Patient somewhat blunted flat slowed thinking during the day times staring. Change Abilify to 10 mg at bedtime. Scheduled Haldol will lowered to 2.5 mg Continue sertraline 100 mg Namenda 5 b.i.d. 10/03:Haldol discontinued modafinil low-dose monitor for psychosis or agitation continue discharge planning 10/06: May need to firm healthcare proxy calls have been placed to sister to try to help in discharge planning. Referrals made. Patient cooperative with care 10/07:Pharmacy ordering Abilify maintain a increase modafinil 100 mg patient remains flat passive depressed some improvement noted no current paranoia noted continue discharge planning no current safe discharge plan 10/08: Increase Lamictal 100 mg Abilify Maintena 400 mg hold modafinil unclear if was overly stimulating patient continues to present internally preoccupied. 10/09:Healthcare proxy invoked discharge planning continue Lamictal Abilify pending maintain a 10/10:Healthcare proxy invoked new CV signed discharge planning. 10/11 keep same treatment 10/12 keep same treatment 10/13: Continue plan of care Lamictal Abilify discharge planning sertraline 10/14: stable. continue current mgmt. 10/15: stable. continue current mgmt. 10/16: stable presentation. continue current mgmt. 10/17: as for yesterday. 10/18: no changes. 10/19: stabel, safe. no change. 10/20: no change in presentation. calm, cooperative. active on unit, social with select peers, attending groups. Pt reports feeling alright . denies SI/HI/VH/AH. Social work waiting to hear from possible placement location. Continue current tx plan. 10/21: continue current tx plan. awaiting placement. 10/22: calm, cooperative. active on unit, social with select peers, attending groups. Pt reports feeling good ; pt stated, I'm waiting to see where I'm going . denies SI/HI/VH/AH. Showered with encouragement. 10/23: continue current tx plan. 10/24: calm, cooperative. active on unit, social with select peers, attending groups. Pt reports feeling good ; pt stated, I just want a place to live . 10/25- likely at baseline for him- CTP 10/26 CTP likely needs placement 10/27: continue current tx plan. awaiting placement. 10/28: Similar to yesterday. No change in presentation. 10/29: Pt reports feeling good ;pt stated, just waiting for a place to live . denies any issues at this time. 10/30: calm, cooperative. active on unit, social with select peers, attending groups. Pt reports feeling worried about where I am going to live . denies any issues at this time. 10/21: no change in presentation. continue current tx plan. 11/01: continue current management and treatment plan. 11/02: Continue current management and treatment plan. 11/03: Continue current management and treatment plan. 11/04: Active on unit. calm, cooperative. social with select peers, attending groups. denies any issues at this time. He reports sleeping well. Pt reports he would be interested in applying for [facility] services; social work aware. 11/05: Active on unit. calm, cooperative. social with select peers, attending groups. denies any issues at this time. Pt reports feeling okay ; he reports anxiety regarding placement. Continue current tx plan. 11/07/23 [facility] referral has appropriate concerns re living stuation cont abilify lamictal 11/08/23 Pt cooperative with care d/c planning working with cont d/c planning cont lamictal abilify 11/12/23 Patient increasingly despairing aware of no clear discharge plan periods needs cuing for much functioning limited social engaged needs help regarding diabetes and medication compliance reportedly had been rejected by multiple rest homes patient not threatening intermittently hopeless helpless very limited family contact at this time 11/13/23 pt flat depressed hopeless helpless unable to fx without structure 11/15 continue tx. 11/16 continue tx. 11/18/2023 Continue plan of care referral to [facility] TSH low will decrease levothyroxine 11/19/23 Pt flat dysphor ic inc hopeless helpless lamictal 150 hs dec levothyroxine 150 d/c planning cont 11/20/23 lamictal inc d/c planning dmh referral 12/02/2023 Continue Lamictal Abilify patient cooperative with care gets despairing at times regarding lack of family support problematic discharge planning in relationship to finding suitable structured place to live 12/02: Social with peers. Per nursing, pt did not sleep last night. Pt reports he did not sleeping because he wasn't tired but feel okay ; ordered Ativan 1mg PO bedtime for tonight, pt aware. 12/03: In bed sleeping, pt reports he is catching up on sleep from the night before. Calm, cooperative. T/W and curing room worker, Billie, with pt to discuss possibly going to the [facility]. Pt reports he would like to call his sister and speak to her before deciding. DC Ativan. 12/04: Active on unit, social with peers. attending groups. T/W and curing room worker, Billie, met with pt to discuss discharge plan. Pt reports he doesn't know if he would want to go to a homeless nursing home; he states he would rather live on the street because I've done it before . Pt encouraged to consider benefits of going to a nursing home with the winter months coming; he agreed to doing phone intake with health and social care teacher on Saturday with [facility]. 12/05: Pt presents similar to yesterday. Continues to perseverate about [facility] being a nursing home and not a program; He continues to agree to do phone intake on Saturday. Discussed VARGAS, pt reports he want time to consider d/t not liking needles . 12/08: Pt had phone interview with [facility], however, after multiple attempts at calling them, no one at [facility] picked up the phone to conduct interview. curing room worker to get into contact with them again. Pt denies any issues at this time. 12/09: Active on unit, social with peers. Pt denies any issues at this time. Patient agreed to receiving Abilify Maintena; risks/benefits reviewed. Waiting on placement. 12/10: Patient received Abilify Maintena yesterday. He denies any side effects. Pleasant. Waiting on placement. 12/11: continue current tx plan. Reason for continued inpatient stay Substantial Risk for: other Time Spent With Patient Time: Total time managing care of this patient today _20___ minutes.
[2023-12-12 10:04] LABS: Glucose, Whole Blood 132 mg/dL (60-115)
[2023-12-12 11:43] LABS: Glucose, Whole Blood 223 mg/dL (60-115)
[2023-12-12] MEDS: Insulin Lispro 100 UNIT/ML 3 ML VIAL SUBCUT ×2 (12:05→21:18)
[2023-12-12 13:33] VITALS: BMI 32.4
[2023-12-12 17:03] LABS: Glucose, Whole Blood 144 mg/dL (60-115)
[2023-12-12] MEDS: metFORMIN HCl ER 500 MG TAB.ER.24H 1000 MG PO (17:25)
[2023-12-12 20:20] VITALS: BP 133/73; PULSE 95; RESP 16; TEMP 36.9; O2SAT 97
[2023-12-12 21:14] LABS: Glucose, Whole Blood 198 mg/dL (60-115)
[2023-12-12] MEDS: ARIPiprazole 10 MG TABLET PO (21:18)
[2023-12-12] MEDS: Insulin Glargine,Hum.rec.anlog 100 UNIT/ML 10 ML VIAL 20 UNIT SUBCUT (21:19)
[2023-12-12] MEDS: traZODone HCL 50 MG TABLET PO ×2 (21:19→22:39)
[2023-12-12] MEDS: lamoTRIgine 100 MG TABLET 150 MG PO (21:19)
[2023-12-13 08:00] VITALS: BP 128/83; PULSE 95; RESP 16; TEMP 36.4; O2SAT 98
[2023-12-13 08:23] LABS: Glucose, Whole Blood 123 mg/dL (60-115)
[2023-12-13] MEDS: Levothyroxine Sodium 150 MCG TABLET PO (08:59)
[2023-12-13] MEDS: Sertraline HCL 100 MG TABLET PO (08:59)
[2023-12-13] MEDS: Memantine HCl 5 MG TABLET PO ×2 (09:00→20:35)
--- NOTE | 2023-12-13 09:19 | P.PNPSI_ITS ---
Subjective Subjective Date of Service: 12/13/23 Reason For Visit: paranoia cognitive impairment Subjective Notes: Conditional Voluntary Interim History: Reviewed with Dr. Gonzalez. Similar to days prior. Active on unit, social with peers. Pt denies any issues at this time. Waiting on placement. Medication Compliance: Yes Side effects from medications: No Attending Groups: Yes Review of Systems Constitutional: Reports as per HPI Eyes: Reports as per HPI Reports as per HPI Cardiovascular: Reports as per HPI Respiratory: Reports as per HPI Gastrointestinal: Reports as per HPI Genitourinary: Reports as per HPI Musculoskeletal: Reports as per HPI Skin/Breast: Reports as per HPI Reports as per HPI Psychiatric: Reports as per HPI Endocrine: Reports as per HPI Hematologic/Lymphatic: Reports as per HPI Allergic/Immunologic: Reports as per HPI 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 Diagnostics Vital Signs (24Hr): Vital Signs - 24 hr 12/12/23 20:20 12/13/23 08:00 Temperature 98.5 F 97.5 F Pulse Rate 95 95 Respiratory Rate 16 16 Blood Pressure 133/73 128/83 Pulse Oximetry 97 98 Oxygen Delivery Method Room Air Room Air BMI result Body Mass Index 32.4 Labs 09/10/23 20:00 12/05/23 09:05 Labs: Laboratory Results - last 48 hr 12/11/23 12/11/23 12/11/23 11:43 16:38 21:15 POC Glucose 255 H 86 113 12/12/23 12/12/23 12/12/23 07:50 11:35 16:58 POC Glucose 132 H 223 H 144 H 12/12/23 12/13/23 21:09 08:08 POC Glucose 198 H 123 H Imaging Radiology Impressions: ITS Impressions Brain MRI 09/19/23 20:33 IMPRESSION: 1. No demonstrated acute intracranial abnormalities. 2. Chronic mild to moderate nonspecific white matter changes, most notably in the deep white matter of the right frontal lobe. Mild to moderate generalized cerebral volume loss. Medications Medications Current Medications Acetaminophen (Acetaminophen 325 Mg Tablet) 650 mg PO Q6H PRN PRN Reason: Headache/Pain Mild Scale (1-3) Last Admin: 10/13/23 09:39 Dose: 650 mg Al Hydroxide/Mg Hydroxide (Magnesium Hydrox/Alum Hydrox 30 Ml Oral.Susp) 30 ml PO Q6H PRN PRN Reason: Heartburn/Nausea Last Admin: 11/27/23 10:48 Dose: 30 ml Aripiprazole (Aripiprazole 10 Mg Tablet) 10 mg PO BEDTIME [facility] Last Admin: 12/12/23 21:18 Dose: 10 mg Aripiprazole (Aripiprazole Er 300 Mg Suser.Syr) 300 mg IM Q28D [facility] Last Admin: 12/10/23 17:14 Dose: 300 mg Benztropine Mesylate (Benztropine Mesylate 0.5 Mg Tablet) 0.5 mg PO TID PRN PRN Reason: Extrapyramidal Effects Glucose (Glucose Gel 15 Gm Gel..Gram.) 15 gm PO Q15M PRN; Protocol PRN Reason: per Hypoglycemia Standing Ord. Hydroxyzine HCl (Hydroxyzine Hcl 25 Mg Tablet) 25 mg PO Q6H PRN PRN Reason: Anxiety Last Admin: 12/02/23 00:02 Dose: 25 mg Dextrose (D10) 250 mls @ 750 mls/hr IV Q15M PRN; Protocol PRN Reason: per Hypoglycemia Standing Ord. Insulin Glargine (Insulin Glargine,Hum.Rec.Anlog 100 Unit/Ml 10 Ml Vial) 20 unit SUBCUT BEDTIME [facility] Last Admin: 12/12/23 21:19 Dose: 20 unit Insulin Human Lispro (Insulin Lispro 100 Unit/Ml 3 Ml Vial) 0 unit SUBCUT QIDACHS [facility]; Protocol Last Admin: 12/13/23 08:10 Dose: Not Given Lamotrigine (Lamotrigine 100 Mg Tablet) 150 mg PO BEDTIME [facility] Last Admin: 12/12/23 21:19 Dose: 150 mg Levothyroxine Sodium (Levothyroxine Sodium 150 Mcg Tablet) 150 mcg PO DAILY@0800 [facility] Last Admin: 12/13/23 08:59 Dose: 150 mcg Magnesium Hydroxide (Milk Of Magnesia 30 Ml Oral.Susp) 30 ml PO DAILY PRN PRN Reason: Constipation Memantine (Memantine Hcl 5 Mg Tablet) 5 mg PO BID [facility] Last Admin: 12/13/23 09:00 Dose: 5 mg Metformin HCl (Metformin Hcl Er 500 Mg Tab.Er.24h) 1,000 mg PO DAILY@1700 [facility] Last Admin: 12/12/23 17:25 Dose: 1,000 mg Ondansetron HCl (Ondansetron Odt 8 Mg Tab.Rapdis) 8 mg TRANSLINGU Q8H PRN PRN Reason: Nausea and Vomiting Last Admin: 11/27/23 10:48 Dose: 8 mg Sertraline HCl (Sertraline Hcl 100 Mg Tablet) 100 mg PO DAILY [facility] Last Admin: 12/13/23 08:59 Dose: 100 mg Simethicone (Simethicone 80 Mg Tab.Chew) 80 mg PO QIDWMHS PRN PRN Reason: Gas Trazodone HCl (Trazodone Hcl 50 Mg Tablet) 50 mg PO BEDTIME MRX1 PRN PRN Reason: Insomnia Last Admin: 12/12/23 22:39 Dose: 50 mg Allergies Allergies Allergy/AdvReac Type Severity Reaction Status Date / Time amoxicillin [AMOXICILLIN] Allergy Mild VOMITING/ABD Verified 09/10/23 19:44 PAIN Assessment & Plan Assessment & Plan (1) Schizoaffective disorder: Status: Acute Code(s): F25.9 - Schizoaffective disorder, unspecified (2) Hypothyroidism: Status: Acute Code(s): E03.9 - Hypothyroidism, unspecified (3) Type 2 diabetes mellitus: Status: Acute Code(s): E11.9 - Type 2 diabetes mellitus without complications (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 Plan: CV 15 minute safety checks Continue home medications: Haldol 10mg PO daily Synthroid 200mcg PO daily Obtain labs; A1C/POCs Obtain collateral from sister Obtain records from last hospitalization. MOCA Referral for [facility] services if patient is agreeable. encourage medication compliance;consider VARGAS discharge planning 09/11: Elevated fasting blood sugar elevated hemoglobin A1c 9.2 med consult placed put in point of care needed will start metformin Would benefit from clarity over recent hospitalization what this were done details regarding treatment continue Haldol unclear if patient has Healthcare proxy his Edgar was low slowed cognition with poor details in depth at times during blankly regarding making judgments Unclear if any of this relates to past coma or 2 hypothyroidism. He does seem more impaired than when last seen unclear when last imaging was. Continue Haldol sitter neuro indira involvement regarding diagnostic picture. Patient does remain paranoid blunted suspicious apathetic. He might benefit from longer- term placement if available and appropriate at a later time involved [facility] involvement would be quite helpful 09/12: cont haldol get records ? hcp ? start antidep unclear hx 09/13: Keeping to self. More talkative today. Pt concerned he will be transferred to [facility]. Pt stated, The paper I signed yesterday. Are you going to send me back to the last hospital? That place was horrible . Pt was educated he signed a release of information with Dr. Gonzalez to obtain records from [facility]. Pt was given a copy of the release he signed. Despite this, pt continues to be anxious about being transferred. Pt denies SI/HI/VH/AH. 09/14: Keeping to self. active on unit. showered. Pt reports feeling alright today; pt reports he is worried about where I'm going to go . Pt continues concerned he will be transferred to [facility]. Pt denies SI/HI/VH/AH. 09/15:Pt reports feeling alright today; pt continues to report he is worried about where I'm going to go . Responding with brief responses. Guarded. Observed standing in one place for a long period of time. Appears confused. Pt denies SI/HI/VH/AH. T/W spoke to patient's sister, Ros, with patients verbal consent. Ros reports concerns regarding patients ability to make decisions regarding his mental and physical health. She plans on contacting legal advice on obtaining guardianship of patient. 09/16:Patient's presents similar to yesterday's presentation. Responding with brief responses. Guarded. Observed standing in one place for a long period of time, when asked what he is doing, pt stated, I don't know . Pt reports he plans on contacting his sister today and try to convince her for me to stay there . Pt denies SI/HI/VH/AH. Continue current tx plan. 09/17: brief responses. Guarded. 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 Pt denies SI/HI/VH/AH. T/W and Dr. Gonzalez spoke to patient's sister, Ros. Ros stated being [facility] HCP and plans on finding document. She plans on coming to the hospital on Saturday to be present for [facility] intake. 09/21: No changes 09/22:Patient flat apathetic difficult insight and judgment his sister is healthcare proxy if needed patient is accepting medical treatment Referral to [facility] 09/23:Considers starting Haldol Decanoate patient is agreeable superficially difficulty with exec fx was seen [facility] 09/24:Pt seen in f/u mood flat dysphoric difficulty engaging in conversation preoccupied with thought he wont be living with family thing slowed apathetic no clear response with namenda ? some improvement inc lamictal start low dose sertraline inc lamictal ck tsh 09/25:Start Abilify as augmentation with Haldol see if can be more stimulating regarding depressed mood apathetic limited engagement sertraline 50 mg Lamictal 25 b.i.d. referral to [facility] which would have structure unclear if patient can engage with this he remains quite depressed has delusional beliefs regarding housing and that things have been done he has repeatedly tried to reach out to his sister denies active SI needs much help dressing talking with others encouragement to eat severe thought blocking Abilify might be more stimulating than Haldol which can be more dulling 09/26:Abilify started sertraline Lamictal encouraged step-down to [facility] encourage reality orientation denies active SI 09/27: Continue current regimen and plans 09/28: Continue current regimen and plans. 09/29: Referral to [facility] increase Abilify to 5 mg daily eventually try and taper Haldol sertraline 50 mg daily 09/30:Increase Abilify to 10 mg lower Haldol to 7 mg continue sertraline and Lamictal 10/01:Abilify increased to 10 mg continue to taper Haldol sertraline 100 mg Lamictal increased to 75 mg patient apathetic withdrawn difficulty with placement some paranoia continues difficulty with decision making at times. Not physically aggressive internally preoccupied seems somewhat improved with Abilify sertraline Continue discharge planning 10/02:Patient somewhat blunted flat slowed thinking during the day times staring. Change Abilify to 10 mg at bedtime. Scheduled Haldol will lowered to 2.5 mg Continue sertraline 100 mg Namenda 5 b.i.d. 10/03:Haldol discontinued modafinil low-dose monitor for psychosis or agitation continue discharge planning 10/06: May need to firm healthcare proxy calls have been placed to sister to try to help in discharge planning. Referrals made. Patient cooperative with care 10/07:Pharmacy ordering Abilify maintain a increase modafinil 100 mg patient remains flat passive depressed some improvement noted no current paranoia noted continue discharge planning no current safe discharge plan 10/08: Increase Lamictal 100 mg Abilify Maintena 400 mg hold modafinil unclear if was overly stimulating patient continues to present internally preoccupied. 10/09:Healthcare proxy invoked discharge planning continue Lamictal Abilify pending maintain a 10/10:Healthcare proxy invoked new CV signed discharge planning. 10/11 keep same treatment 10/12 keep same treatment 10/13: Continue plan of care Lamictal Abilify discharge planning sertraline 10/14: stable. continue current mgmt. 10/15: stable. continue current mgmt. 10/16: stable presentation. continue current mgmt. 16: as for yesterday. 10/18: no changes. 10/19: stabel, safe. no change. 10/20: no change in presentation. calm, cooperative. active on unit, social with select peers, attending groups. Pt reports feeling alright . denies SI/HI/VH/AH. Social work waiting to hear from possible placement location. Continue current tx plan. 10/21: continue current tx plan. awaiting placement. 10/22: calm, cooperative. active on unit, social with select peers, attending groups. Pt reports feeling good ; pt stated, I'm waiting to see where I'm going . denies SI/HI/VH/AH. Showered with encouragement. 10/23: continue current tx plan. 10/24: calm, cooperative. active on unit, social with select peers, attending groups. Pt reports feeling good ; pt stated, I just want a place to live . 10/25- likely at baseline for him- CTP 10/26 CTP likely needs placement 10/27: continue current tx plan. awaiting placement. 10/28: Similar to yesterday. No change in presentation. 10/29: Pt reports feeling good ;pt stated, just waiting for a place to live . denies any issues at this time. 10/30: calm, cooperative. active on unit, social with select peers, attending groups. Pt reports feeling worried about where I am going to live . denies any issues at this time. 10/21: no change in presentation. continue current tx plan. 11/01: continue current management and treatment plan. 11/02: Continue current management and treatment plan. 11/03: Continue current management and treatment plan. 11/04: Active on unit. calm, cooperative. social with select peers, attending groups. denies any issues at this time. He reports sleeping well. Pt reports he would be interested in applying for [facility] services; social work aware. 11/05: Active on unit. calm, cooperative. social with select peers, attending groups. denies any issues at this time. Pt reports feeling okay ; he reports anxiety regarding placement. Continue current tx plan. 11/07/23 [facility] referral has appropriate concerns re living stuation cont abilify lamictal 11/08/23 Pt cooperative with care d/c planning working with cont d/c planning cont lamictal abilify 11/12/23 Patient increasingly despairing aware of no clear discharge plan periods needs cuing for much functioning limited social engaged needs help regarding diabetes and medication compliance reportedly had been rejected by multiple rest homes patient not threatening intermittently hopeless helpless very limited family contact at this time 11/13/23 pt flat depressed hopeless helpless unable to fx without structure 11/15 continue tx. 11/16 continue tx. 11/18/2023 Continue plan of care referral to [facility] TSH low will decrease levothyroxine 11/19/23 Pt flat dysphor ic inc hopeless helpless lamictal 150 hs dec levothyroxine 150 d/c planning cont 11/20/23 lamictal inc d/c planning dmh referral 12/02/2023 Continue Lamictal Abilify patient cooperative with care gets despairing at times regarding lack of family support problematic discharge planning in relationship to finding suitable structured place to live 12/02: Social with peers. Per nursing, pt did not sleep last night. Pt reports he did not sleeping because he wasn't tired but feel okay ; ordered Ativan 1mg PO bedtime for tonight, pt aware. 12/03: In bed sleeping, pt reports he is catching up on sleep from the night before. Calm, cooperative. T/W and food prep worker, Billie, with pt to discuss possibly going to the [facility]. Pt reports he would like to call his sister and speak to her before deciding. DC Ativan. 12/04: Active on unit, social with peers. attending groups. T/W and food prep worker, Billie, met with pt to discuss discharge plan. Pt reports he doesn't know if he would want to go to a homeless retirement; he states he would rather live on the street because I've done it before . Pt encouraged to consider benefits of going to a retirement with the winter months coming; he agreed to doing phone intake with adoption social worker on Saturday with [facility]. 12/05: Pt presents similar to yesterday. Continues to perseverate about [facility] being a retirement and not a program; He continues to agree to do phone intake on Saturday. Discussed VARGAS, pt reports he want time to consider d/t not liking needles . 12/08: Pt had phone interview with [facility], however, after multiple attempts at calling them, no one at [facility] picked up the phone to conduct interview. food prep worker to get into contact with them again. Pt denies any issues at this time. 12/09: Active on unit, social with peers. Pt denies any issues at this time. Patient agreed to receiving Abilify Maintena; risks/benefits reviewed. Waiting on placement. 12/10: Patient received Abilify Maintena yesterday. He denies any side effects. Pleasant. Waiting on placement. 12/11: continue current tx plan. 12/12: similar to days prior. waiting on placement. continue current tx plan. Reason for continued inpatient stay Substantial Risk for: other Time Spent With Patient Time: Total time managing care of this patient today _20___ minutes.
[2023-12-13] MEDS: Ondansetron ODT 8 MG TAB.RAPDIS TRANSLINGU (10:51)
[2023-12-13 12:00] LABS: Glucose, Whole Blood 191 mg/dL (60-115)
[2023-12-13] MEDS: Insulin Lispro 100 UNIT/ML 3 ML VIAL SUBCUT (12:08)
[2023-12-13 16:52] LABS: Glucose, Whole Blood 79 mg/dL (60-115)
[2023-12-13] MEDS: metFORMIN HCl ER 500 MG TAB.ER.24H 1000 MG PO (16:56)
[2023-12-13 19:42] VITALS: BP 112/68; PULSE 78; RESP 16; TEMP 36.8; O2SAT 95
[2023-12-13] MEDS: traZODone HCL 50 MG TABLET PO ×2 (20:33→23:15)
[2023-12-13 20:34] LABS: Glucose, Whole Blood 135 mg/dL (60-115)
[2023-12-13] MEDS: lamoTRIgine 100 MG TABLET 150 MG PO (20:34)
[2023-12-13] MEDS: ARIPiprazole 10 MG TABLET PO (20:36)
[2023-12-13] MEDS: Insulin Glargine,Hum.rec.anlog 100 UNIT/ML 10 ML VIAL 20 UNIT SUBCUT (20:36)
[2023-12-14 07:27] LABS: Glucose, Whole Blood 123 mg/dL (60-115)
[2023-12-14 07:31] VITALS: BP 115/55; PULSE 88; RESP 18; TEMP 37.2; O2SAT 94
[2023-12-14] MEDS: Sertraline HCL 100 MG TABLET PO (09:11)
[2023-12-14] MEDS: Memantine HCl 5 MG TABLET PO ×2 (09:11→21:44)
[2023-12-14] MEDS: Levothyroxine Sodium 150 MCG TABLET PO (09:11)
[2023-12-14 09:50] LABS: Creatinine Clr Calc Pharmacy 95.8; Estimated Glomerular Filt Rate > 60
[2023-12-14 12:26] LABS: Glucose, Whole Blood 202 mg/dL (60-115)
[2023-12-14] MEDS: Insulin Lispro 100 UNIT/ML 3 ML VIAL SUBCUT ×3 (12:48→21:45)
[2023-12-14 16:48] LABS: Glucose, Whole Blood 219 mg/dL (60-115)
[2023-12-14] MEDS: metFORMIN HCl ER 500 MG TAB.ER.24H 1000 MG PO (17:12)
[2023-12-14 20:09] VITALS: BP 118/93; PULSE 74; RESP 18; TEMP 36.9; O2SAT 98
--- NOTE | 2023-12-14 20:26 | P.PNPSI_ITS ---
Subjective Subjective Date of Service: 12/14/23 Reason For Visit: paranoia cognitive impairment Interim History: appears more down than prior. MD inquires, pt replies, lots of people come and go. 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 Impaired Diagnostics Vital Signs (24Hr): Vital Signs - 24 hr 12/14/23 07:31 12/14/23 20:09 Temperature 98.9 F 98.5 F Pulse Rate 88 74 Respiratory Rate 18 18 Blood Pressure 115/55 L 118/93 H Pulse Oximetry 94 98 Oxygen Delivery Method Room Air Room Air BMI result Body Mass Index 32.4 Labs 09/10/23 20:00 12/14/23 09:27 Labs: Laboratory Results - last 48 hr 12/12/23 12/13/23 12/13/23 21:09 08:08 11:56 Creatinine Estim Creat Clear Calc Estimated GFR POC Glucose 198 H 123 H 191 H 12/13/23 12/13/23 12/14/23 16:46 20:30 07:23 Creatinine Estim Creat Clear Calc Estimated GFR POC Glucose 79 135 H 123 H 12/14/23 12/14/23 12/14/23 09:27 12:21 16:41 Creatinine 0.97 Estim Creat Clear Calc 95.8 Estimated GFR > 60 POC Glucose 202 H 219 H Imaging Radiology Impressions: ITS Impressions Brain MRI 09/19/23 20:33 IMPRESSION: 1. No demonstrated acute intracranial abnormalities. 2. Chronic mild to moderate nonspecific white matter changes, most notably in the deep white matter of the right frontal lobe. Mild to moderate generalized cerebral volume loss. Medications Medications Current Medications Acetaminophen (Acetaminophen 325 Mg Tablet) 650 mg PO Q6H PRN PRN Reason: Headache/Pain Mild Scale (1-3) Last Admin: 10/13/23 09:39 Dose: 650 mg Al Hydroxide/Mg Hydroxide (Magnesium Hydrox/Alum Hydrox 30 Ml Oral.Susp) 30 ml PO Q6H PRN PRN Reason: Heartburn/Nausea Last Admin: 11/27/23 10:48 Dose: 30 ml Aripiprazole (Aripiprazole 10 Mg Tablet) 10 mg PO BEDTIME MANAS Last Admin: 12/13/23 20:36 Dose: 10 mg Aripiprazole (Aripiprazole Er 300 Mg Suser.Syr) 300 mg IM Q28D [facility] Last Admin: 12/10/23 17:14 Dose: 300 mg Benztropine Mesylate (Benztropine Mesylate 0.5 Mg Tablet) 0.5 mg PO TID PRN PRN Reason: Extrapyramidal Effects Glucose (Glucose Gel 15 Gm Gel..Gram.) 15 gm PO Q15M PRN; Protocol PRN Reason: per Hypoglycemia Standing Ord. Hydroxyzine HCl (Hydroxyzine Hcl 25 Mg Tablet) 25 mg PO Q6H PRN PRN Reason: Anxiety Last Admin: 12/02/23 00:02 Dose: 25 mg Dextrose (D10) 250 mls @ 750 mls/hr IV Q15M PRN; Protocol PRN Reason: per Hypoglycemia Standing Ord. Insulin Glargine (Insulin Glargine,Hum.Rec.Anlog 100 Unit/Ml 10 Ml Vial) 20 unit SUBCUT BEDTIME [facility] Last Admin: 12/13/23 20:36 Dose: 20 unit Insulin Human Lispro (Insulin Lispro 100 Unit/Ml 3 Ml Vial) 0 unit SUBCUT QIDACHS [facility]; Protocol Last Admin: 12/14/23 17:11 Dose: 4 unit Lamotrigine (Lamotrigine 100 Mg Tablet) 150 mg PO BEDTIME [facility] Last Admin: 12/13/23 20:34 Dose: 150 mg Levothyroxine Sodium (Levothyroxine Sodium 150 Mcg Tablet) 150 mcg PO DAILY@0800 [facility] Last Admin: 12/14/23 09:11 Dose: 150 mcg Magnesium Hydroxide (Milk Of Magnesia 30 Ml Oral.Susp) 30 ml PO DAILY PRN PRN Reason: Constipation Memantine (Memantine Hcl 5 Mg Tablet) 5 mg PO BID [facility] Last Admin: 12/14/23 09:11 Dose: 5 mg Metformin HCl (Metformin Hcl Er 500 Mg Tab.Er.24h) 1,000 mg PO DAILY@1700 [facility] Last Admin: 12/14/23 17:12 Dose: 1,000 mg Ondansetron HCl (Ondansetron Odt 8 Mg Tab.Rapdis) 8 mg TRANSLINGU Q8H PRN PRN Reason: Nausea and Vomiting Last Admin: 12/13/23 10:51 Dose: 8 mg Sertraline HCl (Sertraline Hcl 100 Mg Tablet) 100 mg PO DAILY MANAS Last Admin: 12/14/23 09:11 Dose: 100 mg Simethicone (Simethicone 80 Mg Tab.Chew) 80 mg PO QIDWMHS PRN PRN Reason: Gas Trazodone HCl (Trazodone Hcl 50 Mg Tablet) 50 mg PO BEDTIME MRX1 PRN PRN Reason: Insomnia Last Admin: 12/13/23 23:15 Dose: 50 mg Allergies Allergies Allergy/AdvReac Type Severity Reaction Status Date / Time amoxicillin [AMOXICILLIN] Allergy Mild VOMITING/ABD Verified 09/10/23 19:44 PAIN Assessment & Plan Assessment & Plan (1) Schizoaffective disorder: Status: Acute Code(s): F25.9 - Schizoaffective disorder, unspecified (2) Hypothyroidism: Status: Acute Code(s): E03.9 - Hypothyroidism, unspecified (3) Type 2 diabetes mellitus: Status: Acute Code(s): E11.9 - Type 2 diabetes mellitus without complications (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 Plan: CV 15 minute safety checks Continue home medications: Haldol 10mg PO daily Synthroid 200mcg PO daily Obtain labs; A1C/POCs Obtain collateral from sister Obtain records from last hospitalization. MOCA Referral for [facility] services if patient is agreeable. encourage medication compliance;consider VARGAS discharge planning 09/11: Elevated fasting blood sugar elevated hemoglobin A1c 9.2 med consult placed put in point of care needed will start metformin Would benefit from clarity over recent hospitalization what this were done details regarding treatment continue Haldol unclear if patient has Healthcare proxy his Rogers was low slowed cognition with poor details in depth at times during blankly regarding making judgments Unclear if any of this relates to past coma or 2 hypothyroidism. He does seem more impaired than when last seen unclear when last imaging was. [facility] picture. Patient does remain paranoid blunted suspicious apathetic. He might benefit from longer- term placement if available and appropriate at a later time involved [facility] involvement would be quite helpful 09/12: cont haldol get records ? hcp ? start antidep unclear hx 09/13: Keeping to self. More talkative today. Pt concerned he will be transferred to [facility]. Pt stated, The paper I signed yesterday. Are you going to send me back to the last hospital? That place was horrible . Pt was educated he signed a release of information with Dr. Gonzalez to obtain records from [facility]. Pt was given a copy of the release he signed. Despite this, pt continues to be anxious about being transferred. Pt denies SI/HI/VH/AH. 09/14: Keeping to self. active on unit. showered. Pt reports feeling alright today; pt reports he is worried about where I'm going to go . Pt continues concerned he will be transferred to [facility]. Pt denies SI/HI/VH/AH. 09/15:Pt reports feeling alright today; pt continues to report he is worried about where I'm going to go . Responding with brief responses. Guarded. Observed standing in one place for a long period of time. Appears confused. Pt denies SI/HI/VH/AH. T/W spoke to patient's sister, Ros, with patients verbal consent. Ros reports concerns regarding patients ability to make decisions regarding his mental and physical health. She plans on contacting legal advice on obtaining guardianship of patient. 09/16:Patient's presents similar to yesterday's presentation. Responding with brief responses. Guarded. Observed standing in one place for a long period of time, when asked what he is doing, pt stated, I don't know . Pt reports he plans on contacting his sister today and try to convince her for me to stay there . Pt denies SI/HI/VH/AH. Continue current tx plan. 09/17: brief responses. Guarded. Continues to clinical documentation consultant one place for a long period of time, when asked what he is doing, pt stated, I don't know . Pt denies SI/HI/VH/AH. T/W and Dr. Gonzalez spoke to patient's sister, Ros. Ros stated being [facility] HCP and plans on finding document. She plans on coming to the hospital on Saturday to be present for [facility] intake. 09/21: No changes 09/22:Patient flat apathetic difficult insight and judgment his sister is healthcare proxy if needed patient is accepting medical treatment Referral to [facility] 09/23:Considers starting Haldol Decanoate patient is agreeable superficially difficulty with exec fx was seen [facility] 09/24:Pt seen in f/u mood flat dysphoric difficulty engaging in conversation preoccupied with thought he wont be living with family thing slowed apathetic no clear response with namenda ? some improvement inc lamictal start low dose sertraline inc lamictal ck tsh 09/25:Start Abilify as augmentation with Haldol see if can be more stimulating regarding depressed mood apathetic limited engagement sertraline 50 mg Lamictal 25 b.i.d. referral to [facility] which would have structure unclear if patient can engage with this he remains quite depressed has delusional beliefs regarding housing and that things have been done he has repeatedly tried to reach out to his sister denies active SI needs much help dressing talking with others encouragement to eat severe thought blocking Abilify might be more stimulating than Haldol which can be more dulling 09/26:Abilify started sertraline Lamictal encouraged step-down to [facility] encourage reality orientation denies active SI 09/27: Continue current regimen and plans 09/28: Continue current regimen and plans. 09/29: Referral to [facility] increase Abilify to 5 mg daily eventually try and taper Haldol sertraline 50 mg daily 09/30:Increase Abilify to 10 mg lower Haldol to 7 mg continue sertraline and Lamictal 10/01:Abilify increased to 10 mg continue to taper Haldol sertraline 100 mg Lamictal increased to 75 mg patient apathetic withdrawn difficulty with placement some paranoia continues difficulty with decision making at times. Not physically aggressive internally preoccupied seems somewhat improved with Abilify sertraline Continue discharge planning 8/1:Patient somewhat blunted flat slowed thinking during the day times staring. Change Abilify to 10 mg at bedtime. Scheduled Haldol will lowered to 2.5 mg Continue sertraline 100 mg Namenda 5 b.i.d. 10/03:Haldol discontinued modafinil low-dose monitor for psychosis or agitation continue discharge planning 10/06: May need to firm healthcare proxy calls have been placed to sister to try to help in discharge planning. Referrals made. Patient cooperative with care 10/07:Pharmacy ordering Abilify maintain a increase modafinil 100 mg patient remains flat passive depressed some improvement noted no current paranoia noted continue discharge planning no current safe discharge plan 10/08: Increase Lamictal 100 mg Abilify Maintena 400 mg hold modafinil unclear if was overly stimulating patient continues to present internally preoccupied. 10/09:Healthcare proxy invoked discharge planning continue Lamictal Abilify pending maintain a 10/10:Healthcare proxy invoked new CV signed discharge planning. 10/11 keep same treatment 10/12 keep same treatment 10/13: Continue plan of care Lamictal Abilify discharge planning sertraline 10/14: stable. continue current mgmt. 10/15: stable. continue current mgmt. 10/16: stable presentation. continue current mgmt. 10/17: as for yesterday. 10/18: no changes. 10/19: stabel, safe. no change. 10/20: no change in presentation. calm, cooperative. active on unit, social with select peers, attending groups. Pt reports feeling alright . denies SI/HI/VH/AH. Social work waiting to hear from possible placement location. Continue current tx plan. 10/21: continue current tx plan. awaiting placement. 10/22: calm, cooperative. active on unit, social with select peers, attending groups. Pt reports feeling good ; pt stated, I'm waiting to see where I'm going . denies SI/HI/VH/AH. Showered with encouragement. 10/23: continue current tx plan. 10/24: calm, cooperative. active on unit, social with select peers, attending groups. Pt reports feeling good ; pt stated, I just want a place to live . 10/25- likely at baseline for him- CTP 8/25 CTP likely needs placement 10/27: continue current tx plan. awaiting placement. 10/28: Similar to yesterday. No change in presentation. 10/29: Pt reports feeling good ;pt stated, just waiting for a place to live . denies any issues at this time. 10/30: calm, cooperative. active on unit, social with select peers, attending groups. Pt reports feeling worried about where I am going to live . denies any issues at this time. 10/21: no change in presentation. continue current tx plan. 11/01: continue current management and treatment plan. 11/02: Continue current management and treatment plan. 11/03: Continue current management and treatment plan. 11/04: Active on unit. calm, cooperative. social with select peers, attending groups. denies any issues at this time. He reports sleeping well. Pt reports he would be interested in applying for [facility] services; social work aware. 11/05: Active on unit. calm, cooperative. social with select peers, attending groups. denies any issues at this time. Pt reports feeling okay ; he reports anxiety regarding placement. Continue current tx plan. 11/07/23 [facility] referral has appropriate concerns re living stuation cont abilify lamictal 11/08/23 Pt cooperative with care d/c planning working with cont d/c planning cont lamictal abilify 11/12/23 Patient increasingly despairing aware of no clear discharge plan periods needs cuing for much functioning limited social engaged needs help regarding diabetes and medication compliance reportedly had been rejected by multiple rest homes patient not threatening intermittently hopeless helpless very limited family contact at this time 11/13/23 pt flat depressed hopeless helpless unable to fx without structure 11/15 continue tx. 11/16 continue tx. 11/18/2023 Continue plan of care referral to [facility] TSH low will decrease levothyroxine 11/19/23 Pt flat dysphor ic inc hopeless helpless lamictal 150 hs dec levothyroxine 150 d/c planning cont 11/20/23 lamictal inc d/c planning h referral 12/02/2023 Continue Lamictal Abilify patient cooperative with care gets despairing at times regarding lack of family support problematic discharge planning in relationship to finding suitable structured place to live 12/02: Social with peers. Per nursing, pt did not sleep last night. Pt reports he did not sleeping because he wasn't tired but feel okay ; ordered Ativan 1mg PO bedtime for tonight, pt aware. 12/03: In bed sleeping, pt reports he is catching up on sleep from the night before. Calm, cooperative. T/W and deli worker, Billie, with pt to discuss possibly going to the [facility]. Pt reports he would like to call his sister and speak to her before deciding. DC Ativan. 12/04: Active on unit, social with peers. attending groups. T/W and deli worker, Billie, met with pt to discuss discharge plan. Pt reports he doesn't know if he would want to go to a homeless fci; he states he would rather live on the street because I've done it before . Pt encouraged to consider benefits of going to a fci with the winter months coming; he agreed to doing phone intake with hospital social worker on Saturday with [facility]. 12/05: Pt presents similar to yesterday. Continues to perseverate about [facility] being a fci and not a program; He continues to agree to do phone intake on Saturday. Discussed VARGAS, pt reports he want time to consider d/t not liking needles . 12/08: Pt had phone interview with [facility], however, after multiple attempts at calling them, no one at [facility] picked up the phone to conduct interview. deli worker to get into contact with them again. Pt denies any issues at this time. 12/09: Active on unit, social with peers. Pt denies any issues at this time. Patient agreed to receiving Abilify Maintena; risks/benefits reviewed. Waiting on placement. 12/10: Patient received Abilify Maintena yesterday. He denies any side effects. Pleasant. Waiting on placement. 12/11: continue current tx plan. 12/12: similar to days prior. waiting on placement. continue current tx plan. 12/13: appearing more depressed or demoralized. notes lots of people come and go. continue current mgmt. Reason for continued inpatient stay Substantial Risk for: inability to function Time Spent With Patient Time: Total time managing care of this patient today ____ minutes.
[2023-12-14 21:23] LABS: COVID-19 Test Negative (Negative); IDNOW Serial# 152EDE1D
[2023-12-14 21:28] LABS: Glucose, Whole Blood 182 mg/dL (60-115)
[2023-12-14] MEDS: Insulin Glargine,Hum.rec.anlog 100 UNIT/ML 10 ML VIAL 20 UNIT SUBCUT (21:44)
[2023-12-14] MEDS: ARIPiprazole 10 MG TABLET PO (21:44)
[2023-12-14] MEDS: lamoTRIgine 100 MG TABLET 150 MG PO (21:44)
[2023-12-14] MEDS: traZODone HCL 50 MG TABLET PO ×2 (22:26→23:24)
[2023-12-15 07:59] LABS: Glucose, Whole Blood 119 mg/dL (60-115)
[2023-12-15 09:00] VITALS: BP 109/62; PULSE 71; RESP 18; TEMP 37.1; O2SAT 96
[2023-12-15] MEDS: Memantine HCl 5 MG TABLET PO ×2 (09:16→21:30)
[2023-12-15] MEDS: Sertraline HCL 100 MG TABLET PO (09:16)
[2023-12-15] MEDS: Levothyroxine Sodium 150 MCG TABLET PO (09:16)
[2023-12-15 11:57] LABS: Glucose, Whole Blood 174 mg/dL (60-115)
[2023-12-15] MEDS: Insulin Lispro 100 UNIT/ML 3 ML VIAL SUBCUT ×2 (12:04→21:29)
[2023-12-15 16:52] LABS: Glucose, Whole Blood 101 mg/dL (60-115)
[2023-12-15] MEDS: metFORMIN HCl ER 500 MG TAB.ER.24H 1000 MG PO (16:59)
--- NOTE | 2023-12-15 18:02 | P.PNPSI_ITS ---
Subjective Subjective Date of Service: 12/15/23 Reason For Visit: paranoia cognitive impairment Interim History: no change in presentation from yesterday. seems a bit down. find me a place to live? per staff, looking off a bit. c/o feeling tired. more animated eves. taking meds. COVID NEG. vomited yesterday. more animated this morning. slept 8 hours. 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: Group Home Impaired Diagnostics Vital Signs (24Hr): Vital Signs - 24 hr 12/14/23 20:09 12/15/23 09:00 Temperature 98.5 F 98.7 F Pulse Rate 74 71 Respiratory Rate 18 18 Blood Pressure 118/93 H 109/62 Pulse Oximetry 98 96 Oxygen Delivery Method Room Air Room Air BMI result Body Mass Index 32.4 Labs 09/10/23 20:00 12/14/23 09:27 Labs: Laboratory Results - last 48 hr 12/13/23 12/14/23 12/14/23 20:30 07:23 09:27 Creatinine 0.97 Estim Creat Clear Calc 95.8 Estimated GFR > 60 POC Glucose 135 H 123 H COVID-19 ([facility]ARSHA) COVID-19 Clin Com 12/14/23 12/14/23 12/14/23 12:21 16:41 20:45 Creatinine Estim Creat Clear Calc Estimated GFR POC Glucose 202 H 219 H COVID-19 ([facility]ARSHA) Negative COVID-19 Clin Com See Note 12/14/23 12/15/23 12/15/23 21:10 07:50 11:51 Creatinine Estim Creat Clear Calc Estimated GFR POC Glucose 182 H 119 H 174 H COVID-19 ([facility]ARSHA) COVID-19 Clin Com 12/15/23 16:43 Creatinine Estim Creat Clear Calc Estimated GFR POC Glucose 101 COVID-19 (HARSHA) COVID-19 Clin Com Imaging Radiology Impressions: ITS Impressions Brain MRI 09/19/23 20:33 IMPRESSION: 1. No demonstrated acute intracranial abnormalities. 2. Chronic mild to moderate nonspecific white matter changes, most notably in the deep white matter of the right frontal lobe. Mild to moderate generalized cerebral volume loss. Medications Medications Current Medications Acetaminophen (Acetaminophen 325 Mg Tablet) 650 mg PO Q6H PRN PRN Reason: Headache/Pain Mild Scale (1-3) Last Admin: 10/13/23 09:39 Dose: 650 mg Al Hydroxide/Mg Hydroxide (Magnesium Hydrox/Alum Hydrox 30 Ml Oral.Susp) 30 ml PO Q6H PRN PRN Reason: Heartburn/Nausea Last Admin: 11/27/23 10:48 Dose: 30 ml Aripiprazole (Aripiprazole 10 Mg Tablet) 10 mg PO BEDTIME MANAS Last Admin: 12/14/23 21:44 Dose: 10 mg Aripiprazole (Aripiprazole Er 300 Mg Suser.Syr) 300 mg IM Q28D [facility] Last Admin: 12/10/23 17:14 Dose: 300 mg Benztropine Mesylate (Benztropine Mesylate 0.5 Mg Tablet) 0.5 mg PO TID PRN PRN Reason: Extrapyramidal Effects Glucose (Glucose Gel 15 Gm Gel..Gram.) 15 gm PO Q15M PRN; Protocol PRN Reason: per Hypoglycemia Standing Ord. Hydroxyzine HCl (Hydroxyzine Hcl 25 Mg Tablet) 25 mg PO Q6H PRN PRN Reason: Anxiety Last Admin: 12/02/23 00:02 Dose: 25 mg Dextrose (D10) 250 mls @ 750 mls/hr IV Q15M PRN; Protocol PRN Reason: per Hypoglycemia Standing Ord. Insulin Glargine (Insulin Glargine,Hum.Rec.Anlog 100 Unit/Ml 10 Ml Vial) 20 unit SUBCUT BEDTIME [facility] Last Admin: 12/14/23 21:44 Dose: 20 unit Insulin Human Lispro (Insulin Lispro 100 Unit/Ml 3 Ml Vial) 0 unit SUBCUT QIDACHS [facility]; Protocol Last Admin: 12/15/23 17:06 Dose: Not Given Lamotrigine (Lamotrigine 100 Mg Tablet) 150 mg PO BEDTIME [facility] Last Admin: 12/14/23 21:44 Dose: 150 mg Levothyroxine Sodium (Levothyroxine Sodium 150 Mcg Tablet) 150 mcg PO DAILY@0800 [facility] Last Admin: 12/15/23 09:16 Dose: 150 mcg Magnesium Hydroxide (Milk Of Magnesia 30 Ml Oral.Susp) 30 ml PO DAILY PRN PRN Reason: Constipation Memantine (Memantine Hcl 5 Mg Tablet) 5 mg PO BID [facility] Last Admin: 12/15/23 09:16 Dose: 5 mg Metformin HCl (Metformin Hcl Er 500 Mg Tab.Er.24h) 1,000 mg PO DAILY@1700 [facility] Last Admin: 12/15/23 16:59 Dose: 1,000 mg Ondansetron HCl (Ondansetron Odt 8 Mg Tab.Rapdis) 8 mg TRANSLINGU Q8H PRN PRN Reason: Nausea and Vomiting Last Admin: 12/13/23 10:51 Dose: 8 mg Sertraline HCl (Sertraline Hcl 100 Mg Tablet) 100 mg PO DAILY [facility] Last Admin: 12/15/23 09:16 Dose: 100 mg Simethicone (Simethicone 80 Mg Tab.Chew) 80 mg PO QIDWMHS PRN PRN Reason: Gas Trazodone HCl (Trazodone Hcl 50 Mg Tablet) 50 mg PO BEDTIME MRX1 PRN PRN Reason: Insomnia Last Admin: 12/14/23 23:24 Dose: 50 mg Allergies Allergies Allergy/AdvReac Type Severity Reaction Status Date / Time amoxicillin [AMOXICILLIN] Allergy Mild VOMITING/ABD Verified 09/10/23 19:44 PAIN Assessment & Plan Assessment & Plan (1) Schizoaffective disorder: Status: Acute Code(s): F25.9 - Schizoaffective disorder, unspecified (2) Hypothyroidism: Status: Acute Code(s): E03.9 - Hypothyroidism, unspecified (3) Type 2 diabetes mellitus: Status: Acute Code(s): E11.9 - Type 2 diabetes mellitus without complications (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 Plan: CV 15 minute safety checks Continue home medications: Haldol 10mg PO daily Synthroid 200mcg PO daily Obtain labs; A1C/POCs Obtain collateral from sister Obtain records from last hospitalization. MOCA Referral for [facility] services if patient is agreeable. encourage medication compliance;consider VARGAS discharge planning 09/11: Elevated fasting blood sugar elevated hemoglobin A1c 9.2 med consult placed put in point of care needed will start metformin Would benefit from clarity over recent hospitalization what this were done details regarding treatment continue Haldol unclear if patient has Healthcare proxy his Leslie was low slowed cognition with poor details in depth at times during blankly regarding making judgments Unclear if any of this relates to past coma or 2 hypothyroidism. He does seem more impaired than when last seen unclear when last imaging was. Continue Haldol sitter neuro indira involvement regarding diagnostic picture. Patient does remain paranoid blunted suspicious apathetic. He might benefit from longer- term placement if available and appropriate at a later time involved [facility] involvement would be quite helpful 09/12: cont haldol get records ? hcp ? start antidep unclear hx 09/13: Keeping to self. More talkative today. Pt concerned he will be transferred to [facility]. Pt stated, The paper I signed yesterday. Are you going to send me back to the last hospital? That place was horrible . Pt was educated he signed a release of information with Dr. Gonzalez to obtain records from [facility]. Pt was given a copy of the release he signed. Despite this, pt continues to be anxious about being transferred. Pt denies SI/HI/VH/AH. 09/14: Keeping to self. active on unit. showered. Pt reports feeling alright today; pt reports he is worried about where I'm going to go . Pt continues concerned he will be transferred to [facility]. Pt denies SI/HI/VH/AH. 09/15:Pt reports feeling alright today; pt continues to report he is worried about where I'm going to go . Responding with brief responses. Guarded. Observed standing in one place for a long period of time. Appears confused. Pt denies SI/HI/VH/AH. T/W spoke to patient's sister, Ros, with patients verbal consent. Ros reports concerns regarding patients ability to make decisions regarding his mental and physical health. She plans on contacting legal advice on obtaining guardianship of patient. 09/16:Patient's presents similar to yesterday's presentation. Responding with brief responses. Guarded. Observed standing in one place for a long period of time, when asked what he is doing, pt stated, I don't know . Pt reports he plans on contacting his sister today and try to convince her for me to stay there . Pt denies SI/HI/VH/AH. Continue current tx plan. 09/17: brief responses. Guarded. 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 Pt denies SI/HI/VH/AH. T/W and Dr. Gonzalez spoke to patient's sister, Ros. Ros stated being Hyamn HCP and plans on finding document. She plans on coming to the hospital on Saturday to be present for [facility] intake. 09/21: No changes 09/22:Patient flat apathetic difficult insight and judgment his sister is healthcare proxy if needed patient is accepting medical treatment Referral to [facility] 09/23:Considers starting Haldol Decanoate patient is agreeable superficially difficulty with exec fx was seen [facility] 09/24:Pt seen in f/u mood flat dysphoric difficulty engaging in conversation preoccupied with thought he wont be living with family thing slowed apathetic no clear response with namenda ? some improvement inc lamictal start low dose sertraline inc lamictal ck tsh 09/25:Start Abilify as augmentation with Haldol see if can be more stimulating regarding depressed mood apathetic limited engagement sertraline 50 mg Lamictal 25 b.i.d. referral to [facility] which would have structure unclear if patient can engage with this he remains quite depressed has delusional beliefs regarding housing and that things have been done he has repeatedly tried to reach out to his sister denies active SI needs much help dressing talking with others encouragement to eat severe thought blocking Abilify might be more stimulating than Haldol which can be more dulling 09/26:Abilify started sertraline Lamictal encouraged step-down to [facility] encourage reality orientation denies active SI 09/27: Continue current regimen and plans 09/28: Continue current regimen and plans. 09/29: Referral to [facility] increase Abilify to 5 mg daily eventually try and taper Haldol sertraline 50 mg daily 09/30:Increase Abilify to 10 mg lower Haldol to 7 mg continue sertraline and Lamictal 10/01:Abilify increased to 10 mg continue to taper Haldol sertraline 100 mg Lamictal increased to 75 mg patient apathetic withdrawn difficulty with placement some paranoia continues difficulty with decision making at times. Not physically aggressive internally preoccupied seems somewhat improved with Abilify sertraline Continue discharge planning 10/02:Patient somewhat blunted flat slowed thinking during the day times staring. Change Abilify to 10 mg at bedtime. Scheduled Haldol will lowered to 2.5 mg Continue sertraline 100 mg Namenda 5 b.i.d. 10/03:Haldol discontinued modafinil low-dose monitor for psychosis or agitation continue discharge planning 10/06: May need to firm healthcare proxy calls have been placed to sister to try to help in discharge planning. Referrals made. Patient cooperative with care 10/07:Pharmacy ordering Abilify maintain a increase modafinil 100 mg patient remains flat passive depressed some improvement noted no current paranoia noted continue discharge planning no current safe discharge plan 10/08: Increase Lamictal 100 mg Abilify Maintena 400 mg hold modafinil unclear if was overly stimulating patient continues to present internally preoccupied. 10/09:Healthcare proxy invoked discharge planning continue Lamictal Abilify pending maintain a 10/10:Healthcare proxy invoked new CV signed discharge planning. 10/11 keep same treatment 10/12 keep same treatment 10/13: Continue plan of care Lamictal Abilify discharge planning sertraline 10/14: stable. continue current mgmt. 10/15: stable. continue current mgmt. 10/16: stable presentation. continue current mgmt. 10/17: as for yesterday. 10/18: no changes. 10/19: stabel, safe. no change. 10/20: no change in presentation. calm, cooperative. active on unit, social with select peers, attending groups. Pt reports feeling alright . denies SI/HI/VH/AH. Social work waiting to hear from possible placement location. Continue current tx plan. 10/21: continue current tx plan. awaiting placement. 10/22: calm, cooperative. active on unit, social with select peers, attending groups. Pt reports feeling good ; pt stated, I'm waiting to see where I'm going . denies SI/HI/VH/AH. Showered with encouragement. 10/23: continue current tx plan. 10/24: calm, cooperative. active on unit, social with select peers, attending groups. Pt reports feeling good ; pt stated, I just want a place to live . 10/25- likely at baseline for him- CTP 10/26 CTP likely needs placement 10/27: continue current tx plan. awaiting placement. 10/28: Similar to yesterday. No change in presentation. 10/29: Pt reports feeling good ;pt stated, just waiting for a place to live . denies any issues at this time. 10/30: calm, cooperative. active on unit, social with select peers, attending groups. Pt reports feeling worried about where I am going to live . denies any issues at this time. 10/21: no change in presentation. continue current tx plan. 11/01: continue current management and treatment plan. 11/02: Continue current management and treatment plan. 11/03: Continue current management and treatment plan. 11/04: Active on unit. calm, cooperative. social with select peers, attending groups. denies any issues at this time. He reports sleeping well. Pt reports he would be interested in applying for [facility] services; social work aware. 11/05: Active on unit. calm, cooperative. social with select peers, attending groups. denies any issues at this time. Pt reports feeling okay ; he reports anxiety regarding placement. Continue current tx plan. 11/07/23 [facility] referral has appropriate concerns re living stuation cont abilify lamictal 11/08/23 Pt cooperative with care d/c planning working with cont d/c planning cont lamictal abilify 11/12/23 Patient increasingly despairing aware of no clear discharge plan periods needs cuing for much functioning limited social engaged needs help regarding diabetes and medication compliance reportedly had been rejected by multiple rest homes patient not threatening intermittently hopeless helpless very limited family contact at this time 11/13/23 pt flat depressed hopeless helpless unable to fx without structure 11/15 continue tx. 11/16 continue tx. 11/18/2023 Continue plan of care referral to [facility] TSH low will decrease levothyroxine 11/19/23 Pt flat dysphor ic inc hopeless helpless lamictal 150 hs dec levothyroxine 150 d/c planning cont 11/20/23 lamictal inc d/c planning [facility] referral 12/02/2023 Continue Lamictal Abilify patient cooperative with care gets despairing at times regarding lack of family support problematic discharge planning in relationship to finding suitable structured place to live 12/02: Social with peers. Per nursing, pt did not sleep last night. Pt reports he did not sleeping because he wasn't tired but feel okay ; ordered Ativan 1mg PO bedtime for tonight, pt aware. 12/03: In bed sleeping, pt reports he is catching up on sleep from the night before. Calm, cooperative. T/W and loft worker, Billie, with pt to discuss possibly going to the [facility]. Pt reports he would like to call his sister and speak to her before deciding. DC Ativan. 12/04: Active on unit, social with peers. attending groups. T/W and loft worker, Billie, met with pt to discuss discharge plan. Pt reports he doesn't know if he would want to go to a homeless assisted; he states he would rather live on the street because I've done it before . Pt encouraged to consider benefits of going to a assisted with the winter months coming; he agreed to doing phone intake with nephrology social worker on Saturday with Shaylee Moore. 12/05: Pt presents similar to yesterday. Continues to perseverate about [facility] being a assisted and not a program; He continues to agree to do phone intake on Saturday. Discussed VARGAS, pt reports he want time to consider d/t not liking needles . 12/08: Pt had phone interview with [facility], however, after multiple attempts at calling them, no one at [facility] picked up the phone to conduct interview. loft worker to get into contact with them again. Pt denies any issues at this time. 12/09: Active on unit, social with peers. Pt denies any issues at this time. Patient agreed to receiving Abilify Maintena; risks/benefits reviewed. Waiting on placement. 12/10: Patient received Abilify Maintena yesterday. He denies any side effects. Pleasant. Waiting on placement. 12/11: continue current tx plan. 12/12: similar to days prior. waiting on placement. continue current tx plan. 12/13: appearing more depressed or demoralized. notes lots of people come and go. continue current mgmt. 12/14: same as for yesterday: find me a place to live? continue current mgmt. Reason for continued inpatient stay Substantial Risk for: inability to function Time Spent With Patient Time: Total time managing care of this patient today ____ minutes.
[2023-12-15 20:00] VITALS: BP 125/58; PULSE 85; RESP 18; TEMP 36.8; O2SAT 96
[2023-12-15 21:13] LABS: Glucose, Whole Blood 224 mg/dL (60-115)
[2023-12-15] MEDS: lamoTRIgine 100 MG TABLET 150 MG PO (21:29)
[2023-12-15] MEDS: ARIPiprazole 10 MG TABLET PO (21:30)
[2023-12-15] MEDS: Insulin Glargine,Hum.rec.anlog 100 UNIT/ML 10 ML VIAL 20 UNIT SUBCUT (21:30)
[2023-12-15] MEDS: traZODone HCL 50 MG TABLET PO ×2 (21:30→23:13)
[2023-12-16 07:51] VITALS: BP 130/68; PULSE 73; RESP 16; TEMP 36.4; O2SAT 98
[2023-12-16 07:51] LABS: Glucose, Whole Blood 109 mg/dL (60-115)
[2023-12-16] MEDS: Levothyroxine Sodium 150 MCG TABLET PO (08:14)
[2023-12-16] MEDS: Sertraline HCL 100 MG TABLET PO (08:14)
[2023-12-16] MEDS: Memantine HCl 5 MG TABLET PO ×2 (08:14→21:31)
[2023-12-16 11:50] LABS: Glucose, Whole Blood 144 mg/dL (60-115)
[2023-12-16 16:46] LABS: Glucose, Whole Blood 178 mg/dL (60-115)
[2023-12-16] MEDS: Insulin Lispro 100 UNIT/ML 3 ML VIAL SUBCUT ×2 (17:09→21:31)
[2023-12-16] MEDS: metFORMIN HCl ER 500 MG TAB.ER.24H 1000 MG PO (17:09)
--- NOTE | 2023-12-16 19:29 | P.PNPSI_ITS ---
Subjective Subjective Date of Service: 12/16/23 Reason For Visit: paranoia cognitive impairment Interim History: up and about more today. otherwise no change in presentation. per staff, depressed, frustrated. 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: Chcf Impaired Diagnostics Vital Signs (24Hr): Vital Signs - 24 hr 12/15/23 20:00 12/16/23 07:51 Temperature 98.2 F 97.6 F Pulse Rate 85 73 Respiratory Rate 18 16 Blood Pressure 125/58 L 130/68 Pulse Oximetry 96 98 Oxygen Delivery Method Room Air Room Air BMI result Body Mass Index 32.4 Labs 09/10/23 20:00 12/14/23 09:27 Labs: Laboratory Results - last 48 hr 12/14/23 12/14/23 12/15/23 20:45 21:10 07:50 POC Glucose 182 H 119 H COVID-19 (HARSHA) Negative COVID-19 Clin Com See Note 12/15/23 12/15/23 12/15/23 11:51 16:43 21:04 POC Glucose 174 H 101 224 H COVID-19 (HARSHA) COVID-19 Clin Com 12/16/23 12/16/23 12/16/23 07:42 11:44 16:37 POC Glucose 109 144 H 178 H COVID-19 (HARSHA) COVID-19 Clin Com Imaging Radiology Impressions: ITS Impressions Brain MRI 09/19/23 20:33 IMPRESSION: 1. No demonstrated acute intracranial abnormalities. 2. Chronic mild to moderate nonspecific white matter changes, most notably in the deep white matter of the right frontal lobe. Mild to moderate generalized cerebral volume loss. Medications Medications Current Medications Acetaminophen (Acetaminophen 325 Mg Tablet) 650 mg PO Q6H PRN PRN Reason: Headache/Pain Mild Scale (1-3) Last Admin: 10/13/23 09:39 Dose: 650 mg Al Hydroxide/Mg Hydroxide (Magnesium Hydrox/Alum Hydrox 30 Ml Oral.Susp) 30 ml PO Q6H PRN PRN Reason: Heartburn/Nausea Last Admin: 11/27/23 10:48 Dose: 30 ml Aripiprazole (Aripiprazole 10 Mg Tablet) 10 mg PO BEDTIME [facility] Last Admin: 12/15/23 21:30 Dose: 10 mg Aripiprazole (Aripiprazole Er 300 Mg Suser.Syr) 300 mg IM Q28D [facility] Last Admin: 12/10/23 17:14 Dose: 300 mg Benztropine Mesylate (Benztropine Mesylate 0.5 Mg Tablet) 0.5 mg PO TID PRN PRN Reason: Extrapyramidal Effects Glucose (Glucose Gel 15 Gm Gel..Gram.) 15 gm PO Q15M PRN; Protocol PRN Reason: per Hypoglycemia Standing Ord. Hydroxyzine HCl (Hydroxyzine Hcl 25 Mg Tablet) 25 mg PO Q6H PRN PRN Reason: Anxiety Last Admin: 12/02/23 00:02 Dose: 25 mg Dextrose (D10) 250 mls @ 750 mls/hr IV Q15M PRN; Protocol PRN Reason: per Hypoglycemia Standing Ord. Insulin Glargine (Insulin Glargine,Hum.Rec.Anlog 100 Unit/Ml 10 Ml Vial) 20 unit SUBCUT BEDTIME [facility] Last Admin: 12/15/23 21:30 Dose: 20 unit Insulin Human Lispro (Insulin Lispro 100 Unit/Ml 3 Ml Vial) 0 unit SUBCUT QIDACHS [facility]; Protocol Last Admin: 12/16/23 17:09 Dose: 2 unit Lamotrigine (Lamotrigine 100 Mg Tablet) 150 mg PO BEDTIME [facility] Last Admin: 12/15/23 21:29 Dose: 150 mg Levothyroxine Sodium (Levothyroxine Sodium 150 Mcg Tablet) 150 mcg PO DAILY@0800 [facility] Last Admin: 12/16/23 08:14 Dose: 150 mcg Magnesium Hydroxide (Milk Of Magnesia 30 Ml Oral.Susp) 30 ml PO DAILY PRN PRN Reason: Constipation Memantine (Memantine Hcl 5 Mg Tablet) 5 mg PO BID [facility] Last Admin: 12/16/23 08:14 Dose: 5 mg Metformin HCl (Metformin Hcl Er 500 Mg Tab.Er.24h) 1,000 mg PO DAILY@1700 [facility] Last Admin: 12/16/23 17:09 Dose: 1,000 mg Ondansetron HCl (Ondansetron Odt 8 Mg Tab.Rapdis) 8 mg TRANSLINGU Q8H PRN PRN Reason: Nausea and Vomiting Last Admin: 12/13/23 10:51 Dose: 8 mg Sertraline HCl (Sertraline Hcl 100 Mg Tablet) 100 mg PO DAILY MANAS Last Admin: 12/16/23 08:14 Dose: 100 mg Simethicone (Simethicone 80 Mg Tab.Chew) 80 mg PO QIDWMHS PRN PRN Reason: Gas Trazodone HCl (Trazodone Hcl 50 Mg Tablet) 50 mg PO BEDTIME MRX1 PRN PRN Reason: Insomnia Last Admin: 12/15/23 23:13 Dose: 50 mg Allergies Allergies Allergy/AdvReac Type Severity Reaction Status Date / Time amoxicillin [AMOXICILLIN] Allergy Mild VOMITING/ABD Verified 09/10/23 19:44 PAIN Assessment & Plan Assessment & Plan (1) Schizoaffective disorder: Status: Acute Code(s): F25.9 - Schizoaffective disorder, unspecified (2) Hypothyroidism: Status: Acute Code(s): E03.9 - Hypothyroidism, unspecified (3) Type 2 diabetes mellitus: Status: Acute Code(s): E11.9 - Type 2 diabetes mellitus without complications (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 Plan: CV 15 minute safety checks Continue home medications: Haldol 10mg PO daily Synthroid 200mcg PO daily Obtain labs; A1C/POCs Obtain collateral from sister Obtain records from last hospitalization. MOCA Referral for [facility] services if patient is agreeable. encourage medication compliance;consider VARGAS discharge planning 09/11: Elevated fasting blood sugar elevated hemoglobin A1c 9.2 med consult placed put in point of care needed will start metformin Would benefit from clarity over recent hospitalization what this were done details regarding treatment continue Haldol unclear if patient has Healthcare proxy his [place] was low slowed cognition with poor details in depth at times during blankly regarding making judgments Unclear if any of this relates to past coma or 2 hypothyroidism. He does seem more impaired than when last seen unclear when last imaging was. Continue Haldol [facility] neuro indira involvement regarding diagnostic picture. Patient does remain paranoid blunted suspicious apathetic. He might benefit from longer- term placement if available and appropriate at a later time involved [facility] involvement would be quite helpful 09/12: cont haldol get records ? hcp ? start antidep unclear hx 09/13: Keeping to self. More talkative today. Pt concerned he will be transferred to [facility]. Pt stated, The paper I signed yesterday. Are you going to send me back to the last hospital? That place was horrible . Pt was educated he signed a release of information with Dr. Gonzalez to obtain records from [facility]. Pt was given a copy of the release he signed. Despite this, pt continues to be anxious about being transferred. Pt denies SI/HI/VH/AH. 09/14: Keeping to self. active on unit. showered. Pt reports feeling alright today; pt reports he is worried about where I'm going to go . Pt continues concerned he will be transferred to [facility]. Pt denies SI/HI/VH/AH. 09/15:Pt reports feeling alright today; pt continues to report he is worried about where I'm going to go . Responding with brief responses. Guarded. Observed standing in one place for a long period of time. Appears confused. Pt denies SI/HI/VH/AH. T/W spoke to patient's sister, Ros, with patients verbal consent. Ros reports concerns regarding patients ability to make decisions regarding his mental and physical health. She plans on contacting legal advice on obtaining guardianship of patient. 09/16:Patient's presents similar to yesterday's presentation. Responding with brief responses. Guarded. Observed standing in one place for a long period of time, when asked what he is doing, pt stated, I don't know . Pt reports he plans on contacting his sister today and try to convince her for me to stay there . Pt denies SI/HI/VH/AH. Continue current tx plan. 09/17: brief responses. Guarded. Continues to clinical psychiatrist one place for a long period of time, when asked what he is doing, pt stated, I don't know . Pt denies SI/HI/VH/AH. T/W and Dr. Gonzalez spoke to patient's sister, Ros. Ros stated being [facility] HCP and plans on finding document. She plans on coming to the hospital on Saturday to be present for [facility] intake. 09/21: No changes 09/22:Patient flat apathetic difficult insight and judgment his sister is healthcare proxy if needed patient is accepting medical treatment Referral to [facility] 09/23:Considers starting Haldol Decanoate patient is agreeable superficially difficulty with exec fx was seen [facility] 09/24:Pt seen in f/u mood flat dysphoric difficulty engaging in conversation preoccupied with thought he wont be living with family thing slowed apathetic no clear response with namenda ? some improvement inc lamictal start low dose sertraline inc lamictal ck tsh 09/25:Start Abilify as augmentation with Haldol see if can be more stimulating regarding depressed mood apathetic limited engagement sertraline 50 mg Lamictal 25 b.i.d. referral to [facility] which would have structure unclear if patient can engage with this he remains quite depressed has delusional beliefs regarding housing and that things have been done he has repeatedly tried to reach out to his sister denies active SI needs much help dressing talking with others encouragement to eat severe thought blocking Abilify might be more stimulating than Haldol which can be more dulling 09/26:Abilify started sertraline Lamictal encouraged step-down to [facility] encourage reality orientation denies active SI 09/27: Continue current regimen and plans 09/28: Continue current regimen and plans. 09/29: Referral to [facility] increase Abilify to 5 mg daily eventually try and taper Haldol sertraline 50 mg daily 09/30:Increase Abilify to 10 mg lower Haldol to 7 mg continue sertraline and Lamictal 10/01:Abilify increased to 10 mg continue to taper Haldol sertraline 100 mg Lamictal increased to 75 mg patient apathetic withdrawn difficulty with placement some paranoia continues difficulty with decision making at times. Not physically aggressive internally preoccupied seems somewhat improved with Abilify sertraline Continue discharge planning 10/02:Patient somewhat blunted flat slowed thinking during the day times staring. Change Abilify to 10 mg at bedtime. Scheduled Haldol will lowered to 2.5 mg Continue sertraline 100 mg Namenda 5 b.i.d. 10/03:Haldol discontinued modafinil low-dose monitor for psychosis or agitation continue discharge planning 10/06: May need to firm healthcare proxy calls have been placed to sister to try to help in discharge planning. Referrals made. Patient cooperative with care 10/07:Pharmacy ordering Abilify maintain a increase modafinil 100 mg patient remains flat passive depressed some improvement noted no current paranoia noted continue discharge planning no current safe discharge plan 10/08: Increase Lamictal 100 mg Abilify Maintena 400 mg hold modafinil unclear if was overly stimulating patient continues to present internally preoccupied. 10/09:Healthcare proxy invoked discharge planning continue Lamictal Abilify pending maintain a 10/10:Healthcare proxy invoked new CV signed discharge planning. 10/11 keep same treatment 10/12 keep same treatment 10/13: Continue plan of care Lamictal Abilify discharge planning sertraline 10/14: stable. continue current mgmt. 10/15: stable. continue current mgmt. 10/16: stable presentation. continue current mgmt. 10/17: as for yesterday. 10/18: no changes. 10/19: stabel, safe. no change. 10/20: no change in presentation. calm, cooperative. active on unit, social with select peers, attending groups. Pt reports feeling alright . denies SI/HI/VH/AH. Social work waiting to hear from possible placement location. Continue current tx plan. 10/21: continue current tx plan. awaiting placement. 10/22: calm, cooperative. active on unit, social with select peers, attending groups. Pt reports feeling good ; pt stated, I'm waiting to see where I'm going . denies SI/HI/VH/AH. Showered with encouragement. 10/23: continue current tx plan. 10/24: calm, cooperative. active on unit, social with select peers, attending groups. Pt reports feeling good ; pt stated, I just want a place to live . 10/25- likely at baseline for him- CTP 10/26 CTP likely needs placement 10/27: continue current tx plan. awaiting placement. 10/28: Similar to yesterday. No change in presentation. 10/29: Pt reports feeling good ;pt stated, just waiting for a place to live . denies any issues at this time. 10/30: calm, cooperative. active on unit, social with select peers, attending groups. Pt reports feeling worried about where I am going to live . denies any issues at this time. 10/21: no change in presentation. continue current tx plan. 11/01: continue current management and treatment plan. 11/02: Continue current management and treatment plan. 11/03: Continue current management and treatment plan. 11/04: Active on unit. calm, cooperative. social with select peers, attending groups. denies any issues at this time. He reports sleeping well. Pt reports he would be interested in applying for [facility] services; social work aware. 11/05: Active on unit. calm, cooperative. social with select peers, attending groups. denies any issues at this time. Pt reports feeling okay ; he reports anxiety regarding placement. Continue current tx plan. 11/07/23 [facility] referral has appropriate concerns re living stuation cont abilify lamictal 11/08/23 Pt cooperative with care d/c planning working with cont d/c planning cont lamictal abilify 11/12/23 Patient increasingly despairing aware of no clear discharge plan periods needs cuing for much functioning limited social engaged needs help regarding diabetes and medication compliance reportedly had been rejected by multiple rest homes patient not threatening intermittently hopeless helpless very limited family contact at this time 11/13/23 pt flat depressed hopeless helpless unable to fx without structure 11/15 continue tx. 11/16 continue tx. 11/18/2023 Continue plan of care referral to [facility] TSH low will decrease levothyroxine 11/19/23 Pt flat dysphor ic inc hopeless helpless lamictal 150 hs dec levothyroxine 150 d/c planning cont 11/20/23 lamictal inc d/c planning dmh referral 12/02/2023 Continue Lamictal Abilify patient cooperative with care gets despairing at times regarding lack of family support problematic discharge planning in relationship to finding suitable structured place to live 12/02: Social with peers. Per nursing, pt did not sleep last night. Pt reports he did not sleeping because he wasn't tired but feel okay ; ordered Ativan 1mg PO bedtime for tonight, pt aware. 12/03: In bed sleeping, pt reports he is catching up on sleep from the night before. Calm, cooperative. T/W and production staff worker, Billie, with pt to discuss possibly going to the [facility]. Pt reports he would like to call his sister and speak to her before deciding. DC Ativan. 12/04: Active on unit, social with peers. attending groups. T/W and production staff worker, Billie, met with pt to discuss discharge plan. Pt reports he doesn't know if he would want to go to a homeless care home; he states he would rather live on the street because I've done it before . Pt encouraged to consider benefits of going to a care home with the winter months coming; he agreed to doing phone intake with social services analyst on Saturday with [facility]. 12/05: Pt presents similar to yesterday. Continues to perseverate about [facility] being a care home and not a program; He continues to agree to do phone intake on Saturday. Discussed VARGAS, pt reports he want time to consider d/t not liking needles . 12/08: Pt had phone interview with [facility], however, after multiple attempts at calling them, no one at [facility] picked up the phone to conduct interview. production staff worker to get into contact with them again. Pt denies any issues at this time. 12/09: Active on unit, social with peers. Pt denies any issues at this time. Patient agreed to receiving Abilify Maintena; risks/benefits reviewed. Waiting on placement. 12/10: Patient received Abilify Maintena yesterday. He denies any side effects. Pleasant. Waiting on placement. 12/11: continue current tx plan. 12/12: similar to days prior. waiting on placement. continue current tx plan. 12/13: appearing more depressed or demoralized. notes lots of people come and go. continue current mgmt. 12/14: same as for yesterday: find me a place to live? continue current mgmt. 12/15: out and about more. otherwise stable. continue current mgmt. Reason for continued inpatient stay Substantial Risk for: inability to function Time Spent With Patient Time: Total time managing care of this patient today ____ minutes.
[2023-12-16 20:56] VITALS: BP 121/86; PULSE 89; RESP 16; TEMP 37.1; O2SAT 97
[2023-12-16 21:14] LABS: Glucose, Whole Blood 154 mg/dL (60-115)
[2023-12-16] MEDS: Insulin Glargine,Hum.rec.anlog 100 UNIT/ML 10 ML VIAL 20 UNIT SUBCUT (21:30)
[2023-12-16] MEDS: traZODone HCL 50 MG TABLET PO ×2 (21:31→23:33)
[2023-12-16] MEDS: lamoTRIgine 100 MG TABLET 150 MG PO (21:31)
[2023-12-16] MEDS: ARIPiprazole 10 MG TABLET PO (21:31)
[2023-12-17 07:59] LABS: Glucose, Whole Blood 150 mg/dL (60-115)
[2023-12-17 08:17] VITALS: BP 124/64; PULSE 83; RESP 16; TEMP 36.3; O2SAT 96
[2023-12-17] MEDS: Memantine HCl 5 MG TABLET PO ×2 (08:28→20:11)
[2023-12-17] MEDS: Levothyroxine Sodium 150 MCG TABLET PO (08:28)
[2023-12-17] MEDS: Sertraline HCL 100 MG TABLET PO (08:28)
--- NOTE | 2023-12-17 09:34 | P.PNPSI_ITS ---
Subjective Subjective Date of Service: 12/17/23 Reason For Visit: paranoia cognitive impairment Subjective Notes: Conditional Voluntary Interim History: Reviewed with Dr. Gonzalez. Active on unit. Pt reports feeling okay ; pt stated, just waiting to see where I go . denies any issues at this time. Medication Compliance: Yes Side effects from medications: No Attending Groups: Yes Review of Systems Constitutional: Reports as per HPI Eyes: Reports as per HPI Reports as per HPI Cardiovascular: Reports as per HPI Respiratory: Reports as per HPI Gastrointestinal: Reports as per HPI Genitourinary: Reports as per HPI Musculoskeletal: Reports as per HPI Skin/Breast: Reports as per HPI Reports as per HPI Psychiatric: Reports as per HPI Endocrine: Reports as per HPI Hematologic/Lymphatic: Reports as per HPI Allergic/Immunologic: Reports as per HPI 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: Prison Impaired Diagnostics Vital Signs (24Hr): Vital Signs - 24 hr 12/16/23 20:56 12/17/23 08:17 Temperature 98.7 F 97.3 F Pulse Rate 89 83 Respiratory Rate 16 16 Blood Pressure 121/86 124/64 Pulse Oximetry 97 96 Oxygen Delivery Method Room Air Room Air BMI result Body Mass Index 32.4 Labs 09/10/23 20:00 12/14/23 09:27 Labs: Laboratory Results - last 48 hr 12/15/23 12/15/23 12/15/23 11:51 16:43 21:04 POC Glucose 174 H 101 224 H 12/16/23 12/16/23 12/16/23 07:42 11:44 16:37 POC Glucose 109 144 H 178 H 12/16/23 12/17/23 21:09 07:52 POC Glucose 154 H 150 H Imaging Radiology Impressions: ITS Impressions Brain MRI 09/19/23 20:33 IMPRESSION: 1. No demonstrated acute intracranial abnormalities. 2. Chronic mild to moderate nonspecific white matter changes, most notably in the deep white matter of the right frontal lobe. Mild to moderate generalized cerebral volume loss. Medications Medications Current Medications Acetaminophen (Acetaminophen 325 Mg Tablet) 650 mg PO Q6H PRN PRN Reason: Headache/Pain Mild Scale (1-3) Last Admin: 10/13/23 09:39 Dose: 650 mg Al Hydroxide/Mg Hydroxide (Magnesium Hydrox/Alum Hydrox 30 Ml Oral.Susp) 30 ml PO Q6H PRN PRN Reason: Heartburn/Nausea Last Admin: 11/27/23 10:48 Dose: 30 ml Aripiprazole (Aripiprazole 10 Mg Tablet) 10 mg PO BEDTIME [facility] Last Admin: 12/16/23 21:31 Dose: 10 mg Aripiprazole (Aripiprazole Er 300 Mg Suser.Syr) 300 mg IM Q28D [facility] Last Admin: 12/10/23 17:14 Dose: 300 mg Benztropine Mesylate (Benztropine Mesylate 0.5 Mg Tablet) 0.5 mg PO TID PRN PRN Reason: Extrapyramidal Effects Glucose (Glucose Gel 15 Gm Gel..Gram.) 15 gm PO Q15M PRN; Protocol PRN Reason: per Hypoglycemia Standing Ord. Hydroxyzine HCl (Hydroxyzine Hcl 25 Mg Tablet) 25 mg PO Q6H PRN PRN Reason: Anxiety Last Admin: 12/02/23 00:02 Dose: 25 mg Dextrose (D10) 250 mls @ 750 mls/hr IV Q15M PRN; Protocol PRN Reason: per Hypoglycemia Standing Ord. Insulin Glargine (Insulin Glargine,Hum.Rec.Anlog 100 Unit/Ml 10 Ml Vial) 20 unit SUBCUT BEDTIME [facility] Last Admin: 12/16/23 21:30 Dose: 20 unit Insulin Human Lispro (Insulin Lispro 100 Unit/Ml 3 Ml Vial) 0 unit SUBCUT QIDACHS [facility]; Protocol Last Admin: 12/17/23 08:13 Dose: Not Given Lamotrigine (Lamotrigine 100 Mg Tablet) 150 mg PO BEDTIME [facility] Last Admin: 12/16/23 21:31 Dose: 150 mg Levothyroxine Sodium (Levothyroxine Sodium 150 Mcg Tablet) 150 mcg PO DAILY@0800 [facility] Last Admin: 12/17/23 08:28 Dose: 150 mcg Magnesium Hydroxide (Milk Of Magnesia 30 Ml Oral.Susp) 30 ml PO DAILY PRN PRN Reason: Constipation Memantine (Memantine Hcl 5 Mg Tablet) 5 mg PO BID [facility] Last Admin: 12/17/23 08:28 Dose: 5 mg Metformin HCl (Metformin Hcl Er 500 Mg Tab.Er.24h) 1,000 mg PO DAILY@1700 [facility] Last Admin: 12/16/23 17:09 Dose: 1,000 mg Ondansetron HCl (Ondansetron Odt 8 Mg Tab.Rapdis) 8 mg TRANSLINGU Q8H PRN PRN Reason: Nausea and Vomiting Last Admin: 12/13/23 10:51 Dose: 8 mg Sertraline HCl (Sertraline Hcl 100 Mg Tablet) 100 mg PO DAILY [facility] Last Admin: 12/17/23 08:28 Dose: 100 mg Simethicone (Simethicone 80 Mg Tab.Chew) 80 mg PO QIDWMHS PRN PRN Reason: Gas Trazodone HCl (Trazodone Hcl 50 Mg Tablet) 50 mg PO BEDTIME MRX1 PRN PRN Reason: Insomnia Last Admin: 12/16/23 23:33 Dose: 50 mg Allergies Allergies Allergy/AdvReac Type Severity Reaction Status Date / Time amoxicillin [AMOXICILLIN] Allergy Mild VOMITING/ABD Verified 09/10/23 19:44 PAIN Assessment & Plan Assessment & Plan (1) Schizoaffective disorder: Status: Acute Code(s): F25.9 - Schizoaffective disorder, unspecified (2) Hypothyroidism: Status: Acute Code(s): E03.9 - Hypothyroidism, unspecified (3) Type 2 diabetes mellitus: Status: Acute Code(s): E11.9 - Type 2 diabetes mellitus without complications (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 Plan: CV 15 minute safety checks Continue home medications: Haldol 10mg PO daily Synthroid 200mcg PO daily Obtain labs; A1C/POCs Obtain collateral from sister Obtain records from last hospitalization. MOCA Referral for [facility] services if patient is agreeable. encourage medication compliance;consider VARGAS discharge planning 09/11: Elevated fasting blood sugar elevated hemoglobin A1c 9.2 med consult placed put in point of care needed will start metformin Would benefit from clarity over recent hospitalization what this were done details regarding treatment continue Haldol unclear if patient has Healthcare proxy his [place] was low slowed cognition with poor details in depth at times during blankly regarding making judgments Unclear if any of this relates to past coma or 2 hypothyroidism. He does seem more impaired than when last seen unclear when last imaging was. Continue Haldol sitter neuro indira involvement regarding diagnostic picture. Patient does remain paranoid blunted suspicious apathetic. He might benefit from longer- term placement if available and appropriate at a later time involved [facility] involvement would be quite helpful 09/12: cont haldol get records ? hcp ? start antidep unclear hx 09/13: Keeping to self. More talkative today. Pt concerned he will be transferred to [facility]. Pt stated, The paper I signed yesterday. Are you going to send me back to the last hospital? That place was horrible . Pt was educated he signed a release of information with Dr. Gonzalez to obtain records from [facility]. Pt was given a copy of the release he signed. Despite this, pt continues to be anxious about being transferred. Pt denies SI/HI/VH/AH. 09/14: Keeping to self. active on unit. showered. Pt reports feeling alright today; pt reports he is worried about where I'm going to go . Pt continues concerned he will be transferred to [facility]. Pt denies SI/HI/VH/AH. 09/15:Pt reports feeling alright today; pt continues to report he is worried about where I'm going to go . Responding with brief responses. Guarded. Observed standing in one place for a long period of time. Appears confused. Pt denies SI/HI/VH/AH. T/W spoke to patient's sister, Ros, with patients verbal consent. Ros reports concerns regarding patients ability to make decisions regarding his mental and physical health. She plans on contacting legal advice on obtaining guardianship of patient. 09/16:Patient's presents similar to yesterday's presentation. Responding with brief responses. Guarded. Observed standing in one place for a long period of time, when asked what he is doing, pt stated, I don't know . Pt reports he plans on contacting his sister today and try to convince her for me to stay there . Pt denies SI/HI/VH/AH. Continue current tx plan. 09/17: brief responses. Guarded. Continues to online trader one place for a long period of time, when asked what he is doing, pt stated, I don't know . Pt denies SI/HI/VH/AH. T/W and Dr. Gonzalez spoke to patient's sister, Ros. Ros stated being [facility] HCP and plans on finding document. She plans on coming to the hospital on Saturday to be present for [facility] intake. 09/21: No changes 09/22:Patient flat apathetic difficult insight and judgment his sister is healthcare proxy if needed patient is accepting medical treatment Referral to [facility] 09/23:Considers starting Haldol Decanoate patient is agreeable superficially difficulty with exec fx was seen [facility] 09/24:Pt seen in f/u mood flat dysphoric difficulty engaging in conversation preoccupied with thought he wont be living with family thing slowed apathetic no clear response with namenda ? some improvement inc lamictal start low dose sertraline inc lamictal ck tsh 09/25:Start Abilify as augmentation with Haldol see if can be more stimulating regarding depressed mood apathetic limited engagement sertraline 50 mg Lamictal 25 b.i.d. referral to [facility] which would have structure unclear if patient can engage with this he remains quite depressed has delusional beliefs regarding housing and that things have been done he has repeatedly tried to reach out to his sister denies active SI needs much help dressing talking with others encouragement to eat severe thought blocking Abilify might be more stimulating than Haldol which can be more dulling 09/26:Abilify started sertraline Lamictal encouraged step-down to [facility] encourage reality orientation denies active SI 09/27: Continue current regimen and plans 09/28: Continue current regimen and plans. 09/29: Referral to [facility] increase Abilify to 5 mg daily eventually try and taper Haldol sertraline 50 mg daily 09/30:Increase Abilify to 10 mg lower Haldol to 7 mg continue sertraline and Lamictal 10/01:Abilify increased to 10 mg continue to taper Haldol sertraline 100 mg Lamictal increased to 75 mg patient apathetic withdrawn difficulty with placement some paranoia continues difficulty with decision making at times. Not physically aggressive internally preoccupied seems somewhat improved with Abilify sertraline Continue discharge planning 10/02:Patient somewhat blunted flat slowed thinking during the day times staring. Change Abilify to 10 mg at bedtime. Scheduled Haldol will lowered to 2.5 mg Continue sertraline 100 mg Namenda 5 b.i.d. 10/03:Haldol discontinued modafinil low-dose monitor for psychosis or agitation continue discharge planning 10/06: May need to firm healthcare proxy calls have been placed to sister to try to help in discharge planning. Referrals made. Patient cooperative with care 10/07:Pharmacy ordering Abilify maintain a increase modafinil 100 mg patient remains flat passive depressed some improvement noted no current paranoia noted continue discharge planning no current safe discharge plan 10/08: Increase Lamictal 100 mg Abilify Maintena 400 mg hold modafinil unclear if was overly stimulating patient continues to present internally preoccupied. 10/09:Healthcare proxy invoked discharge planning continue Lamictal Abilify pending maintain a 10/10:Healthcare proxy invoked new CV signed discharge planning. 10/11 keep same treatment 10/12 keep same treatment 10/13: Continue plan of care Lamictal Abilify discharge planning sertraline 10/14: stable. continue current mgmt. 10/15: stable. continue current mgmt. 10/16: stable presentation. continue current mgmt. 10/17: as for yesterday. 10/18: no changes. 10/19: stabel, safe. no change. 10/20: no change in presentation. calm, cooperative. active on unit, social with select peers, attending groups. Pt reports feeling alright . denies SI/HI/VH/AH. Social work waiting to hear from possible placement location. Continue current tx plan. 10/21: continue current tx plan. awaiting placement. 10/22: calm, cooperative. active on unit, social with select peers, attending groups. Pt reports feeling good ; pt stated, I'm waiting to see where I'm going . denies SI/HI/VH/AH. Showered with encouragement. 10/23: continue current tx plan. 10/24: calm, cooperative. active on unit, social with select peers, attending groups. Pt reports feeling good ; pt stated, I just want a place to live . 10/25- likely at baseline for him- CTP 10/26 CTP likely needs placement 10/27: continue current tx plan. awaiting placement. 10/28: Similar to yesterday. No change in presentation. 10/29: Pt reports feeling good ;pt stated, just waiting for a place to live . denies any issues at this time. 10/30: calm, cooperative. active on unit, social with select peers, attending groups. Pt reports feeling worried about where I am going to live . denies any issues at this time. 10/21: no change in presentation. continue current tx plan. 11/01: continue current management and treatment plan. 11/02: Continue current management and treatment plan. 11/03: Continue current management and treatment plan. 11/04: Active on unit. calm, cooperative. social with select peers, attending groups. denies any issues at this time. He reports sleeping well. Pt reports he would be interested in applying for [facility] services; social work aware. 11/05: Active on unit. calm, cooperative. social with select peers, attending groups. denies any issues at this time. Pt reports feeling okay ; he reports anxiety regarding placement. Continue current tx plan. 11/07/23 [facility] referral has appropriate concerns re living stuation cont abilify lamictal 11/08/23 Pt cooperative with care d/c planning working with cont d/c planning cont lamictal abilify 11/12/23 Patient increasingly despairing aware of no clear discharge plan periods needs cuing for much functioning limited social engaged needs help regarding diabetes and medication compliance reportedly had been rejected by multiple rest homes patient not threatening intermittently hopeless helpless very limited family contact at this time 11/13/23 pt flat depressed hopeless helpless unable to fx without structure 11/15 continue tx. 11/16 continue tx. 11/18/2023 Continue plan of care referral to [facility] TSH low will decrease levothyroxine 11/19/23 Pt flat dysphor ic inc hopeless helpless lamictal 150 hs dec levothyroxine 150 d/c planning cont 11/20/23 lamictal inc d/c planning dmh referral 12/02/2023 Continue Lamictal Abilify patient cooperative with care gets despairing at times regarding lack of family support problematic discharge planning in relationship to finding suitable structured place to live 12/02: Social with peers. Per nursing, pt did not sleep last night. Pt reports he did not sleeping because he wasn't tired but feel okay ; ordered Ativan 1mg PO bedtime for tonight, pt aware. 12/03: In bed sleeping, pt reports he is catching up on sleep from the night before. Calm, cooperative. T/W and toll test desk worker, Billie, with pt to discuss possibly going to the [facility]. Pt reports he would like to call his sister and speak to her before deciding. DC Ativan. 12/04: Active on unit, social with peers. attending groups. T/W and toll test desk worker, Billie, met with pt to discuss discharge plan. Pt reports he doesn't know if he would want to go to a homeless chcf; he states he would rather live on the street because I've done it before . Pt encouraged to consider benefits of going to a chcf with the winter months coming; he agreed to doing phone intake with executive secretary social welfare on Saturday with [facility]. 12/05: Pt presents similar to yesterday. Continues to perseverate about [facility] being a chcf and not a program; He continues to agree to do phone intake on Saturday. Discussed VARGAS, pt reports he want time to consider d/t not liking needles . 12/08: Pt had phone interview with [facility], however, after multiple attempts at calling them, no one at [facility] picked up the phone to conduct interview. toll test desk worker to get into contact with them again. Pt denies any issues at this time. 12/09: Active on unit, social with peers. Pt denies any issues at this time. Patient agreed to receiving Abilify Maintena; risks/benefits reviewed. Waiting on placement. 12/10: Patient received Abilify Maintena yesterday. He denies any side effects. Pleasant. Waiting on placement. 12/11: continue current tx plan. 12/12: similar to days prior. waiting on placement. continue current tx plan. 12/13: appearing more depressed or demoralized. notes lots of people come and go. continue current mgmt. 12/14: same as for yesterday: find me a place to live? continue current mgmt. 12/15: out and about more. otherwise stable. continue current mgmt. 12/16: continue current tx plan. Reason for continued inpatient stay Substantial Risk for: other Time Spent With Patient Time: Total time managing care of this patient today _20___ minutes.
[2023-12-17 11:51] LABS: Glucose, Whole Blood 114 mg/dL (60-115)
[2023-12-17] MEDS: metFORMIN HCl ER 500 MG TAB.ER.24H 1000 MG PO (16:03)
[2023-12-17 16:34] LABS: Glucose, Whole Blood 204 mg/dL (60-115)
[2023-12-17] MEDS: Insulin Lispro 100 UNIT/ML 3 ML VIAL SUBCUT (17:10)
[2023-12-17 20:00] VITALS: BP 143/77; PULSE 92; RESP 16; TEMP 37.2; O2SAT 96
[2023-12-17] MEDS: lamoTRIgine 100 MG TABLET 150 MG PO (20:10)
[2023-12-17] MEDS: traZODone HCL 50 MG TABLET PO ×2 (20:11→23:11)
[2023-12-17] MEDS: ARIPiprazole 10 MG TABLET PO (20:11)
[2023-12-17] MEDS: Insulin Glargine,Hum.rec.anlog 100 UNIT/ML 10 ML VIAL 20 UNIT SUBCUT (20:16)
[2023-12-17 20:17] LABS: Glucose, Whole Blood 97 mg/dL (60-115)
[2023-12-18 07:47] LABS: Glucose, Whole Blood 135 mg/dL (60-115)
[2023-12-18 07:57] VITALS: BP 115/59; PULSE 80; RESP 16; TEMP 36.4; O2SAT 97
[2023-12-18] MEDS: Memantine HCl 5 MG TABLET PO ×2 (08:41→21:44)
[2023-12-18] MEDS: Levothyroxine Sodium 150 MCG TABLET PO (08:41)
[2023-12-18] MEDS: Sertraline HCL 100 MG TABLET PO (08:41)
--- NOTE | 2023-12-18 11:08 | HO.PSYCHPN ---
Subjective Subjective Date of Service: 12/18/23 Reason For Visit: paranoia cognitive impairment Subjective Notes: Conditional Voluntary Interim History: Reviewed with Dr. Gonzalez. Similar to days prior. Pt reports feeling okay ; waiting on placement. denies any issues at this time. Medication Compliance: Yes Side effects from medications: No Attending Groups: Yes Review of Systems Constitutional: Reports as per HPI Eyes: Reports as per HPI Reports as per HPI Cardiovascular: Reports as per HPI Respiratory: Reports as per HPI Gastrointestinal: Reports as per HPI Genitourinary: Reports as per HPI Musculoskeletal: Reports as per HPI Skin/Breast: Reports as per HPI Reports as per HPI Psychiatric: Reports as per HPI Endocrine: Reports as per HPI Hematologic/Lymphatic: Reports as per HPI Allergic/Immunologic: Reports as per HPI 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: Prison Impaired Diagnostics Vital Signs (24Hr): Vital Signs - 24 hr 12/17/23 20:00 12/18/23 07:57 Temperature 98.9 F 97.5 F Pulse Rate 92 80 Respiratory Rate 16 16 Blood Pressure 143/77 H 115/59 L Pulse Oximetry 96 97 Oxygen Delivery Method Room Air Room Air BMI result Body Mass Index 32.4 Labs 09/10/23 20:00 12/14/23 09:27 Labs: Laboratory Results - last 48 hr 12/16/23 12/16/23 12/16/23 11:44 16:37 21:09 POC Glucose 144 H 178 H 154 H 12/17/23 12/17/23 12/17/23 07:52 11:45 16:28 POC Glucose 150 H 114 204 H 12/17/23 12/18/23 20:14 07:42 POC Glucose 97 135 H Imaging Radiology Impressions: ITS Impressions Brain MRI 09/19/23 20:33 IMPRESSION: 1. No demonstrated acute intracranial abnormalities. 2. Chronic mild to moderate nonspecific white matter changes, most notably in the deep white matter of the right frontal lobe. Mild to moderate generalized cerebral volume loss. Medications Medications Current Medications Acetaminophen (Acetaminophen 325 Mg Tablet) 650 mg PO Q6H PRN PRN Reason: Headache/Pain Mild Scale (1-3) Last Admin: 10/13/23 09:39 Dose: 650 mg Al Hydroxide/Mg Hydroxide (Magnesium Hydrox/Alum Hydrox 30 Ml Oral.Susp) 30 ml PO Q6H PRN PRN Reason: Heartburn/Nausea Last Admin: 11/27/23 10:48 Dose: 30 ml Aripiprazole (Aripiprazole 10 Mg Tablet) 10 mg PO BEDTIME [facility] Last Admin: 12/17/23 20:11 Dose: 10 mg Aripiprazole (Aripiprazole Er 300 Mg Suser.Syr) 300 mg IM Q28D [facility] Last Admin: 12/10/23 17:14 Dose: 300 mg Benztropine Mesylate (Benztropine Mesylate 0.5 Mg Tablet) 0.5 mg PO TID PRN PRN Reason: Extrapyramidal Effects Glucose (Glucose Gel 15 Gm Gel..Gram.) 15 gm PO Q15M PRN; Protocol PRN Reason: per Hypoglycemia Standing Ord. Hydroxyzine HCl (Hydroxyzine Hcl 25 Mg Tablet) 25 mg PO Q6H PRN PRN Reason: Anxiety Last Admin: 12/02/23 00:02 Dose: 25 mg Dextrose (D10) 250 mls @ 750 mls/hr IV Q15M PRN; Protocol PRN Reason: per Hypoglycemia Standing Ord. Insulin Glargine (Insulin Glargine,Hum.Rec.Anlog 100 Unit/Ml 10 Ml Vial) 20 unit SUBCUT BEDTIME [facility] Last Admin: 12/17/23 20:16 Dose: 20 unit Insulin Human Lispro (Insulin Lispro 100 Unit/Ml 3 Ml Vial) 0 unit SUBCUT QIDACHS [facility]; Protocol Last Admin: 12/18/23 08:15 Dose: Not Given Lamotrigine (Lamotrigine 100 Mg Tablet) 150 mg PO BEDTIME [facility] Last Admin: 12/17/23 20:10 Dose: 150 mg Levothyroxine Sodium (Levothyroxine Sodium 150 Mcg Tablet) 150 mcg PO DAILY@0800 [facility] Last Admin: 12/18/23 08:41 Dose: 150 mcg Magnesium Hydroxide (Milk Of Magnesia 30 Ml Oral.Susp) 30 ml PO DAILY PRN PRN Reason: Constipation Memantine (Memantine Hcl 5 Mg Tablet) 5 mg PO BID [facility] Last Admin: 12/18/23 08:41 Dose: 5 mg Metformin HCl (Metformin Hcl Er 500 Mg Tab.Er.24h) 1,000 mg PO DAILY@1700 [facility] Last Admin: 12/17/23 16:03 Dose: 1,000 mg Ondansetron HCl (Ondansetron Odt 8 Mg Tab.Rapdis) 8 mg TRANSLINGU Q8H PRN PRN Reason: Nausea and Vomiting Last Admin: 12/13/23 10:51 Dose: 8 mg Sertraline HCl (Sertraline Hcl 100 Mg Tablet) 100 mg PO DAILY [facility] Last Admin: 12/18/23 08:41 Dose: 100 mg Simethicone (Simethicone 80 Mg Tab.Chew) 80 mg PO QIDWMHS PRN PRN Reason: Gas Trazodone HCl (Trazodone Hcl 50 Mg Tablet) 50 mg PO BEDTIME MRX1 PRN PRN Reason: Insomnia Last Admin: 12/17/23 23:11 Dose: 50 mg Allergies Allergies Allergy/AdvReac Type Severity Reaction Status Date / Time amoxicillin [AMOXICILLIN] Allergy Mild VOMITING/ABD Verified 09/10/23 19:44 PAIN Assessment & Plan Assessment & Plan (1) Schizoaffective disorder: Status: Acute Code(s): F25.9 - Schizoaffective disorder, unspecified (2) Hypothyroidism: Status: Acute Code(s): E03.9 - Hypothyroidism, unspecified (3) Type 2 diabetes mellitus: Status: Acute Code(s): E11.9 - Type 2 diabetes mellitus without complications (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 Plan: CV 15 minute safety checks Continue home medications: Haldol 10mg PO daily Synthroid 200mcg PO daily Obtain labs; A1C/POCs Obtain collateral from sister Obtain records from last hospitalization. MOCA Referral for [facility]H services if patient is agreeable. encourage medication compliance;consider VARGAS discharge planning 09/11: Elevated fasting blood sugar elevated hemoglobin A1c 9.2 med consult placed put in point of care needed will start metformin Would benefit from clarity over recent hospitalization what this were done details regarding treatment continue Haldol unclear if patient has Healthcare proxy his Belle was low slowed cognition with poor details in depth at times during blankly regarding making judgments Unclear if any of this relates to past coma or 2 hypothyroidism. He does seem more impaired than when last seen unclear when last imaging was. Continue Haldol sitter neuro indira involvement regarding diagnostic picture. Patient does remain paranoid blunted suspicious apathetic. He might benefit from longer-term placement if available and appropriate at a later time involved [facility] involvement would be quite helpful 09/12: cont haldol get records ? hcp ? start antidep unclear hx 09/13: Keeping to self. More talkative today. Pt concerned he will be transferred to [facility]. Pt stated, The paper I signed yesterday. Are you going to send me back to the last hospital? That place was horrible . Pt was educated he signed a release of information with Dr. Gonzalez to obtain records from [facility]. Pt was given a copy of the release he signed. Despite this, pt continues to be anxious about being transferred. Pt denies SI/HI/VH/AH. 09/14: Keeping to self. active on unit. showered. Pt reports feeling alright today; pt reports he is worried about where I'm going to go . Pt continues concerned he will be transferred to [facility]. Pt denies SI/HI/VH/AH. 09/15:Pt reports feeling alright today; pt continues to report he is worried about where I'm going to go . Responding with brief responses. Guarded. Observed standing in one place for a long period of time. Appears confused. Pt denies SI/HI/VH/AH. T/W spoke to patient's sister, Ros, with patients verbal consent. Ros reports concerns regarding patients ability to make decisions regarding his mental and physical health. She plans on contacting legal advice on obtaining guardianship of patient. 09/16:Patient's presents similar to yesterday's presentation. Responding with brief responses. Guarded. Observed standing in one place for a long period of time, when asked what he is doing, pt stated, I don't know . Pt reports he plans on contacting his sister today and try to convince her for me to stay there . Pt denies SI/HI/VH/AH. Continue current tx plan. 09/17: brief responses. Guarded. 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 Pt denies SI/HI/VH/AH. T/W and Dr. Gonzalez spoke to patient's sister, Ros. Ros stated being [facility] HCP and plans on finding document. She plans on coming to the hospital on Saturday to be present for [facility] intake. 09/21: No changes 09/22:Patient flat apathetic difficult insight and judgment his sister is healthcare proxy if needed patient is accepting medical treatment Referral to [facility] 09/23:Considers starting Haldol Decanoate patient is agreeable superficially difficulty with exec fx was seen [facility] 09/24:Pt seen in f/u mood flat dysphoric difficulty engaging in conversation preoccupied with thought he wont be living with family thing slowed apathetic no clear response with namenda ? some improvement inc lamictal start low dose sertraline inc lamictal ck tsh 09/25:Start Abilify as augmentation with Haldol see if can be more stimulating regarding depressed mood apathetic limited engagement sertraline 50 mg Lamictal 25 b.i.d. referral to [facility] which would have structure unclear if patient can engage with this he remains quite depressed has delusional beliefs regarding housing and that things have been done he has repeatedly tried to reach out to his sister denies active SI needs much help dressing talking with others encouragement to eat severe thought blocking Abilify might be more stimulating than Haldol which can be more dulling 09/26:Abilify started sertraline Lamictal encouraged step-down to [facility] encourage reality orientation denies active SI 09/27: Continue current regimen and plans 09/28: Continue current regimen and plans. 09/29: Referral to [facility] increase Abilify to 5 mg daily eventually try and taper Haldol sertraline 50 mg daily 09/30:Increase Abilify to 10 mg lower Haldol to 7 mg continue sertraline and Lamictal 10/01:Abilify increased to 10 mg continue to taper Haldol sertraline 100 mg Lamictal increased to 75 mg patient apathetic withdrawn difficulty with placement some paranoia continues difficulty with decision making at times. Not physically aggressive internally preoccupied seems somewhat improved with Abilify sertraline Continue discharge planning 10/02:Patient somewhat blunted flat slowed thinking during the day times staring. Change Abilify to 10 mg at bedtime. Scheduled Haldol will lowered to 2.5 mg Continue sertraline 100 mg Namenda 5 b.i.d. 10/03:Haldol discontinued modafinil low-dose monitor for psychosis or agitation continue discharge planning 10/06: May need to firm healthcare proxy calls have been placed to sister to try to help in discharge planning. Referrals made. Patient cooperative with care 10/07:Pharmacy ordering Abilify maintain a increase modafinil 100 mg patient remains flat passive depressed some improvement noted no current paranoia noted continue discharge planning no current safe discharge plan 10/08: Increase Lamictal 100 mg Abilify Maintena 400 mg hold modafinil unclear if was overly stimulating patient continues to present internally preoccupied. 10/09:Healthcare proxy invoked discharge planning continue Lamictal Abilify pending maintain a 10/10:Healthcare proxy invoked new CV signed discharge planning. 10/11 keep same treatment 10/12 keep same treatment 10/13: Continue plan of care Lamictal Abilify discharge planning sertraline 10/14: stable. continue current mgmt. 10/15: stable. continue current mgmt. 10/16: stable presentation. continue current mgmt. 16: as for yesterday. 10/18: no changes. 10/19: stabel, safe. no change. 10/20: no change in presentation. calm, cooperative. active on unit, social with select peers, attending groups. Pt reports feeling alright . denies SI/HI/VH/AH. Social work waiting to hear from possible placement location. Continue current tx plan. 10/21: continue current tx plan. awaiting placement. 10/22: calm, cooperative. active on unit, social with select peers, attending groups. Pt reports feeling good ; pt stated, I'm waiting to see where I'm going . denies SI/HI/VH/AH. Showered with encouragement. 10/23: continue current tx plan. 10/24: calm, cooperative. active on unit, social with select peers, attending groups. Pt reports feeling good ; pt stated, I just want a place to live . 10/25- likely at baseline for him- CTP 10/26 CTP likely needs placement 10/27: continue current tx plan. awaiting placement. 10/28: Similar to yesterday. No change in presentation. 10/29: Pt reports feeling good ;pt stated, just waiting for a place to live . denies any issues at this time. 10/30: calm, cooperative. active on unit, social with select peers, attending groups. Pt reports feeling worried about where I am going to live . denies any issues at this time. 10/21: no change in presentation. continue current tx plan. 11/01: continue current management and treatment plan. 11/02: Continue current management and treatment plan. 11/03: Continue current management and treatment plan. 11/04: Active on unit. calm, cooperative. social with select peers, attending groups. denies any issues at this time. He reports sleeping well. Pt reports he would be interested in applying for [facility] services; social work aware. 11/05: Active on unit. calm, cooperative. social with select peers, attending groups. denies any issues at this time. Pt reports feeling okay ; he reports anxiety regarding placement. Continue current tx plan. 11/07/23 [facility] referral has appropriate concerns re living stuation cont abilify lamictal 11/08/23 Pt cooperative with care d/c planning working with cont d/c planning cont lamictal abilify 11/12/23 Patient increasingly despairing aware of no clear discharge plan periods needs cuing for much functioning limited social engaged needs help regarding diabetes and medication compliance reportedly had been rejected by multiple rest homes patient not threatening intermittently hopeless helpless very limited family contact at this time 11/13/23 pt flat depressed hopeless helpless unable to fx without structure 11/15 continue tx. 11/16 continue tx. 11/18/2023 Continue plan of care referral to [facility] TSH low will decrease levothyroxine 11/19/23 Pt flat dysphor ic inc hopeless helpless lamictal 150 hs dec levothyroxine 150 d/c planning cont 11/20/23 lamictal inc d/c planning dmh referral 12/02/2023 Continue Lamictal Abilify patient cooperative with care gets despairing at times regarding lack of family support problematic discharge planning in relationship to finding suitable structured place to live 12/02: Social with peers. Per nursing, pt did not sleep last night. Pt reports he did not sleeping because he wasn't tired but feel okay ; ordered Ativan 1mg PO bedtime for tonight, pt aware. 12/03: In bed sleeping, pt reports he is catching up on sleep from the night before. Calm, cooperative. T/W and machine shop worker, Billie, with pt to discuss possibly going to the [facility]. Pt reports he would like to call his sister and speak to her before deciding. DC Ativan. 12/04: Active on unit, social with peers. attending groups. T/W and machine shop worker, Billie, met with pt to discuss discharge plan. Pt reports he doesn't know if he would want to go to a homeless halfway; he states he would rather live on the street because I've done it before . Pt encouraged to consider benefits of going to a halfway with the winter months coming; he agreed to doing phone intake with socially responsible investment adviser on Saturday with [facility]. 12/05: Pt presents similar to yesterday. Continues to perseverate about [facility] being a halfway and not a program; He continues to agree to do phone intake on Saturday. Discussed VARGAS, pt reports he want time to consider d/t not liking needles . 12/08: Pt had phone interview with [facility], however, after multiple attempts at calling them, no one at [facility] picked up the phone to conduct interview. machine shop worker to get into contact with them again. Pt denies any issues at this time. 12/09: Active on unit, social with peers. Pt denies any issues at this time. Patient agreed to receiving Abilify Maintena; risks/benefits reviewed. Waiting on placement. 12/10: Patient received Abilify Maintena yesterday. He denies any side effects. Pleasant. Waiting on placement. 12/11: continue current tx plan. 12/12: similar to days prior. waiting on placement. continue current tx plan. 12/13: appearing more depressed or demoralized. notes lots of people come and go. continue current mgmt. 12/14: same as for yesterday: find me a place to live? continue current mgmt. 12/15: out and about more. otherwise stable. continue current mgmt. 12/16: continue current tx plan. 12/17: continue current tx plan. Reason for continued inpatient stay Substantial Risk for: other (waiting on placement. ) Time Spent With Patient Time: Total time managing care of this patient today _20___ minutes.
[2023-12-18] MEDS: Insulin Lispro 100 UNIT/ML 3 ML VIAL SUBCUT (12:07)
[2023-12-18 12:18] LABS: Glucose, Whole Blood 243 mg/dL (60-115)
[2023-12-18 16:46] LABS: Glucose, Whole Blood 137 mg/dL (60-115)
[2023-12-18] MEDS: metFORMIN HCl ER 500 MG TAB.ER.24H 1000 MG PO (17:07)
[2023-12-18 19:54] VITALS: BP 124/64; PULSE 88; RESP 16; TEMP 36.8; O2SAT 97
[2023-12-18 20:31] LABS: Glucose, Whole Blood 136 mg/dL (60-115)
[2023-12-18] MEDS: Insulin Glargine,Hum.rec.anlog 100 UNIT/ML 10 ML VIAL 20 UNIT SUBCUT (21:43)
[2023-12-18] MEDS: lamoTRIgine 100 MG TABLET 150 MG PO (21:43)
[2023-12-18] MEDS: traZODone HCL 50 MG TABLET PO ×2 (21:44→22:44)
[2023-12-18] MEDS: ARIPiprazole 10 MG TABLET PO (21:44)
[2023-12-19 07:00] VITALS: BMI 32.7
[2023-12-19 07:51] LABS: Glucose, Whole Blood 107 mg/dL (60-115)
[2023-12-19 08:41] VITALS: BP 124/64; PULSE 96; RESP 18; TEMP 36.7; O2SAT 96
[2023-12-19] MEDS: Levothyroxine Sodium 150 MCG TABLET PO (08:42)
[2023-12-19] MEDS: Sertraline HCL 100 MG TABLET PO (08:42)
[2023-12-19] MEDS: Memantine HCl 5 MG TABLET PO ×2 (08:42→21:43)
[2023-12-19 09:18] LABS: Creatinine Clr Calc Pharmacy 104.4; Estimated Glomerular Filt Rate > 60
--- NOTE | 2023-12-19 09:30 | P.PNPSI_ITS ---
Subjective Subjective Date of Service: 12/19/23 Reason For Visit: paranoia cognitive impairment Subjective Notes: Conditional Voluntary Interim History: Reviewed with Dr. Gonzalez. Similar to days prior. Pt reports feeling okay ; waiting on placement. denies any issues at this time. Medication Compliance: Yes Side effects from medications: No Attending Groups: Yes Review of Systems Constitutional: Reports as per HPI Eyes: Reports as per HPI Reports as per HPI Cardiovascular: Reports as per HPI Respiratory: Reports as per HPI Gastrointestinal: Reports as per HPI Genitourinary: Reports as per HPI Musculoskeletal: Reports as per HPI Skin/Breast: Reports as per HPI Reports as per HPI Psychiatric: Reports as per HPI Endocrine: Reports as per HPI Hematologic/Lymphatic: Reports as per HPI Allergic/Immunologic: Reports as per HPI 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: Jail Impaired Diagnostics Vital Signs (24Hr): Vital Signs - 24 hr 12/18/23 19:54 12/19/23 08:41 Temperature 98.2 F 98.0 F Pulse Rate 88 96 Respiratory Rate 16 18 Blood Pressure 124/64 124/64 Pulse Oximetry 97 96 Oxygen Delivery Method Room Air Room Air BMI result Body Mass Index 32.4 Labs 09/10/23 20:00 12/19/23 08:07 Labs: Laboratory Results - last 48 hr 12/17/23 12/17/23 12/17/23 11:45 16:28 20:14 Creatinine Estim Creat Clear Calc Estimated GFR POC Glucose 114 204 H 97 12/18/23 12/18/23 12/18/23 07:42 11:48 16:42 Creatinine Estim Creat Clear Calc Estimated GFR POC Glucose 135 H 243 H 137 H 12/18/23 12/19/23 12/19/23 20:27 07:47 08:07 Creatinine 0.89 Estim Creat Clear Calc 104.4 Estimated GFR > 60 POC Glucose 136 H 107 Imaging Radiology Impressions: ITS Impressions Brain MRI 09/19/23 20:33 IMPRESSION: 1. No demonstrated acute intracranial abnormalities. 2. Chronic mild to moderate nonspecific white matter changes, most notably in the deep white matter of the right frontal lobe. Mild to moderate generalized cerebral volume loss. Medications Medications Current Medications Acetaminophen (Acetaminophen 325 Mg Tablet) 650 mg PO Q6H PRN PRN Reason: Headache/Pain Mild Scale (1-3) Last Admin: 10/13/23 09:39 Dose: 650 mg Al Hydroxide/Mg Hydroxide (Magnesium Hydrox/Alum Hydrox 30 Ml Oral.Susp) 30 ml PO Q6H PRN PRN Reason: Heartburn/Nausea Last Admin: 11/27/23 10:48 Dose: 30 ml Aripiprazole (Aripiprazole 10 Mg Tablet) 10 mg PO BEDTIME MANAS Last Admin: 12/18/23 21:44 Dose: 10 mg Aripiprazole (Aripiprazole Er 300 Mg Suser.Syr) 300 mg IM Q28D [facility] Last Admin: 12/10/23 17:14 Dose: 300 mg Benztropine Mesylate (Benztropine Mesylate 0.5 Mg Tablet) 0.5 mg PO TID PRN PRN Reason: Extrapyramidal Effects Glucose (Glucose Gel 15 Gm Gel..Gram.) 15 gm PO Q15M PRN; Protocol PRN Reason: per Hypoglycemia Standing Ord. Hydroxyzine HCl (Hydroxyzine Hcl 25 Mg Tablet) 25 mg PO Q6H PRN PRN Reason: Anxiety Last Admin: 12/02/23 00:02 Dose: 25 mg Dextrose (D10) 250 mls @ 750 mls/hr IV Q15M PRN; Protocol PRN Reason: per Hypoglycemia Standing Ord. Insulin Glargine (Insulin Glargine,Hum.Rec.Anlog 100 Unit/Ml 10 Ml Vial) 20 unit SUBCUT BEDTIME [facility] Last Admin: 12/18/23 21:43 Dose: 20 unit Insulin Human Lispro (Insulin Lispro 100 Unit/Ml 3 Ml Vial) 0 unit SUBCUT QIDACHS [facility]; Protocol Last Admin: 12/19/23 07:54 Dose: Not Given Lamotrigine (Lamotrigine 100 Mg Tablet) 150 mg PO BEDTIME [facility] Last Admin: 12/18/23 21:43 Dose: 150 mg Levothyroxine Sodium (Levothyroxine Sodium 150 Mcg Tablet) 150 mcg PO DAILY@0800 [facility] Last Admin: 12/19/23 08:42 Dose: 150 mcg Magnesium Hydroxide (Milk Of Magnesia 30 Ml Oral.Susp) 30 ml PO DAILY PRN PRN Reason: Constipation Memantine (Memantine Hcl 5 Mg Tablet) 5 mg PO BID [facility] Last Admin: 12/19/23 08:42 Dose: 5 mg Metformin HCl (Metformin Hcl Er 500 Mg Tab.Er.24h) 1,000 mg PO DAILY@1700 [facility] Last Admin: 12/18/23 17:07 Dose: 1,000 mg Ondansetron HCl (Ondansetron Odt 8 Mg Tab.Rapdis) 8 mg TRANSLINGU Q8H PRN PRN Reason: Nausea and Vomiting Last Admin: 12/13/23 10:51 Dose: 8 mg Sertraline HCl (Sertraline Hcl 100 Mg Tablet) 100 mg PO DAILY [facility] Last Admin: 12/19/23 08:42 Dose: 100 mg Simethicone (Simethicone 80 Mg Tab.Chew) 80 mg PO QIDWMHS PRN PRN Reason: Gas Trazodone HCl (Trazodone Hcl 50 Mg Tablet) 50 mg PO BEDTIME MRX1 PRN PRN Reason: Insomnia Last Admin: 12/18/23 22:44 Dose: 50 mg Allergies Allergies Allergy/AdvReac Type Severity Reaction Status Date / Time amoxicillin [AMOXICILLIN] Allergy Mild VOMITING/ABD Verified 09/10/23 19:44 PAIN Assessment & Plan Assessment & Plan (1) Schizoaffective disorder: Status: Acute Code(s): F25.9 - Schizoaffective disorder, unspecified (2) Hypothyroidism: Status: Acute Code(s): E03.9 - Hypothyroidism, unspecified (3) Type 2 diabetes mellitus: Status: Acute Code(s): E11.9 - Type 2 diabetes mellitus without complications (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 Plan: CV 15 minute safety checks Continue home medications: Haldol 10mg PO daily Synthroid 200mcg PO daily Obtain labs; A1C/POCs Obtain collateral from sister Obtain records from last hospitalization. MOCA Referral for [facility] services if patient is agreeable. encourage medication compliance;consider VARGAS discharge planning 09/11: Elevated fasting blood sugar elevated hemoglobin A1c 9.2 med consult placed put in point of care needed will start metformin Would benefit from clarity over recent hospitalization what this were done details regarding treatment continue Haldol unclear if patient has Healthcare proxy his [place] was low slowed cognition with poor details in depth at times during blankly regarding making judgments Unclear if any of this relates to past coma or 2 hypothyroidism. He does seem more impaired than when last seen unclear when last imaging was. Continue Haldol sitter neuro indira involvement regarding diagnostic picture. Patient does remain paranoid blunted suspicious apathetic. He might benefit from longer- term placement if available and appropriate at a later time involved [facility] involvement would be quite helpful 09/12: cont haldol get records ? hcp ? start antidep unclear hx 09/13: Keeping to self. More talkative today. Pt concerned he will be transferred to [facility]. Pt stated, The paper I signed yesterday. Are you going to send me back to the last hospital? That place was horrible . Pt was educated he signed a release of information with Dr. Gonzalez to obtain records from [facility]. Pt was given a copy of the release he signed. Despite this, pt continues to be anxious about being transferred. Pt denies SI/HI/VH/AH. 09/14: Keeping to self. active on unit. showered. Pt reports feeling alright today; pt reports he is worried about where I'm going to go . Pt continues concerned he will be transferred to [facility]. Pt denies SI/HI/VH/AH. 09/15:Pt reports feeling alright today; pt continues to report he is worried about where I'm going to go . Responding with brief responses. Guarded. Observed standing in one place for a long period of time. Appears confused. Pt denies SI/HI/VH/AH. T/W spoke to patient's sister, Ros, with patients verbal consent. Ros reports concerns regarding patients ability to make decisions regarding his mental and physical health. She plans on contacting legal advice on obtaining guardianship of patient. 09/16:Patient's presents similar to yesterday's presentation. Responding with brief responses. Guarded. Observed standing in one place for a long period of time, when asked what he is doing, pt stated, I don't know . Pt reports he plans on contacting his sister today and try to convince her for me to stay there . Pt denies SI/HI/VH/AH. Continue current tx plan. 09/17: brief responses. Guarded. 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 Pt denies SI/HI/VH/AH. T/W and Dr. Gonzalez spoke to patient's sister, Ros. Ros stated being [facility] HCP and plans on finding document. She plans on coming to the hospital on Saturday to be present for [facility] intake. 09/21: No changes 09/22:Patient flat apathetic difficult insight and judgment his sister is healthcare proxy if needed patient is accepting medical treatment Referral to [facility] 09/23:Considers starting Haldol Decanoate patient is agreeable superficially difficulty with exec fx was seen [facility] 09/24:Pt seen in f/u mood flat dysphoric difficulty engaging in conversation preoccupied with thought he wont be living with family thing slowed apathetic no clear response with namenda ? some improvement inc lamictal start low dose sertraline inc lamictal ck tsh 09/25:Start Abilify as augmentation with Haldol see if can be more stimulating regarding depressed mood apathetic limited engagement sertraline 50 mg Lamictal 25 b.i.d. referral to [facility] which would have structure unclear if patient can engage with this he remains quite depressed has delusional beliefs regarding housing and that things have been done he has repeatedly tried to reach out to his sister denies active SI needs much help dressing talking with others encouragement to eat severe thought blocking Abilify might be more stimulating than Haldol which can be more dulling 09/26:Abilify started sertraline Lamictal encouraged step-down to [facility] encourage reality orientation denies active SI 09/27: Continue current regimen and plans 09/28: Continue current regimen and plans. 09/29: Referral to [facility] increase Abilify to 5 mg daily eventually try and taper Haldol sertraline 50 mg daily 09/30:Increase Abilify to 10 mg lower Haldol to 7 mg continue sertraline and Lamictal 10/01:Abilify increased to 10 mg continue to taper Haldol sertraline 100 mg Lamictal increased to 75 mg patient apathetic withdrawn difficulty with placement some paranoia continues difficulty with decision making at times. Not physically aggressive internally preoccupied seems somewhat improved with Abilify sertraline Continue discharge planning 10/02:Patient somewhat blunted flat slowed thinking during the day times staring. Change Abilify to 10 mg at bedtime. Scheduled Haldol will lowered to 2.5 mg Continue sertraline 100 mg Namenda 5 b.i.d. 10/03:Haldol discontinued modafinil low-dose monitor for psychosis or agitation continue discharge planning 10/06: May need to firm healthcare proxy calls have been placed to sister to try to help in discharge planning. Referrals made. Patient cooperative with care 10/07:Pharmacy ordering Abilify maintain a increase modafinil 100 mg patient remains flat passive depressed some improvement noted no current paranoia noted continue discharge planning no current safe discharge plan 10/08: Increase Lamictal 100 mg Abilify Maintena 400 mg hold modafinil unclear if was overly stimulating patient continues to present internally preoccupied. 10/09:Healthcare proxy invoked discharge planning continue Lamictal Abilify pending maintain a 10/10:Healthcare proxy invoked new CV signed discharge planning. 10/11 keep same treatment 10/12 keep same treatment 10/13: Continue plan of care Lamictal Abilify discharge planning sertraline 10/14: stable. continue current mgmt. 10/15: stable. continue current mgmt. 10/16: stable presentation. continue current mgmt. 10/17: as for yesterday. 10/18: no changes. 10/19: stabel, safe. no change. 10/20: no change in presentation. calm, cooperative. active on unit, social with select peers, attending groups. Pt reports feeling alright . denies SI/HI/VH/AH. Social work waiting to hear from possible placement location. Continue current tx plan. 10/21: continue current tx plan. awaiting placement. 10/22: calm, cooperative. active on unit, social with select peers, attending groups. Pt reports feeling good ; pt stated, I'm waiting to see where I'm going . denies SI/HI/VH/AH. Showered with encouragement. 10/23: continue current tx plan. 10/24: calm, cooperative. active on unit, social with select peers, attending groups. Pt reports feeling good ; pt stated, I just want a place to live . 10/25- likely at baseline for him- CTP 10/26 CTP likely needs placement 10/27: continue current tx plan. awaiting placement. 10/28: Similar to yesterday. No change in presentation. 10/29: Pt reports feeling good ;pt stated, just waiting for a place to live . denies any issues at this time. 10/30: calm, cooperative. active on unit, social with select peers, attending groups. Pt reports feeling worried about where I am going to live . denies any issues at this time. 10/21: no change in presentation. continue current tx plan. 11/01: continue current management and treatment plan. 11/02: Continue current management and treatment plan. 11/03: Continue current management and treatment plan. 11/04: Active on unit. calm, cooperative. social with select peers, attending groups. denies any issues at this time. He reports sleeping well. Pt reports he would be interested in applying for [facility] services; social work aware. 11/05: Active on unit. calm, cooperative. social with select peers, attending groups. denies any issues at this time. Pt reports feeling okay ; he reports anxiety regarding placement. Continue current tx plan. 11/07/23 [facility] referral has appropriate concerns re living stuation cont abilify lamictal 11/08/23 Pt cooperative with care d/c planning working with cont d/c planning cont lamictal abilify 11/12/23 Patient increasingly despairing aware of no clear discharge plan periods needs cuing for much functioning limited social engaged needs help regarding diabetes and medication compliance reportedly had been rejected by multiple rest homes patient not threatening intermittently hopeless helpless very limited family contact at this time 11/13/23 pt flat depressed hopeless helpless unable to fx without structure 11/15 continue tx. 11/16 continue tx. 11/18/2023 Continue plan of care referral to [facility] TSH low will decrease levothyroxine 11/19/23 Pt flat dysphor ic inc hopeless helpless lamictal 150 hs dec levothyroxine 150 d/c planning cont 11/20/23 lamictal inc d/c planning [facility] [place] referral 12/02/2023 Continue Lamictal Abilify patient cooperative with care gets despairing at times regarding lack of family support problematic discharge planning in relationship to finding suitable structured place to live 12/02: Social with peers. Per nursing, pt did not sleep last night. Pt reports he did not sleeping because he wasn't tired but feel okay ; ordered Ativan 1mg PO bedtime for tonight, pt aware. 12/03: In bed sleeping, pt reports he is catching up on sleep from the night before. Calm, cooperative. T/W and c iron worker, Billie, with pt to discuss possibly going to the [facility]. Pt reports he would like to call his sister and speak to her before deciding. DC Ativan. 12/04: Active on unit, social with peers. attending groups. T/W and c iron worker, Billie, met with pt to discuss discharge plan. Pt reports he doesn't know if he would want to go to a homeless penitentiary; he states he would rather live on the street because I've done it before . Pt encouraged to consider benefits of going to a penitentiary with the winter months coming; he agreed to doing phone intake with social media executive on Saturday with Shaylee Moore. 12/05: Pt presents similar to yesterday. Continues to perseverate about [facility] being a penitentiary and not a program; He continues to agree to do phone intake on Saturday. Discussed VARGAS, pt reports he want time to consider d/t not liking needles . 12/08: Pt had phone interview with [facility], however, after multiple attempts at calling them, no one at [facility] picked up the phone to conduct interview. c iron worker to get into contact with them again. Pt denies any issues at this time. 12/09: Active on unit, social with peers. Pt denies any issues at this time. Patient agreed to receiving Abilify Maintena; risks/benefits reviewed. Waiting on placement. 12/10: Patient received Abilify Maintena yesterday. He denies any side effects. Pleasant. Waiting on placement. 12/11: continue current tx plan. 12/12: similar to days prior. waiting on placement. continue current tx plan. 12/13: appearing more depressed or demoralized. notes lots of people come and go. continue current mgmt. 12/14: same as for yesterday: find me a place to live? continue current mgmt. 12/15: out and about more. otherwise stable. continue current mgmt. 12/16: continue current tx plan. 12/17: continue current tx plan. 12/18: awaiting placement. denies any issues. Patient educated on: diagnosis and medication risk/benefits Reason for continued inpatient stay Substantial Risk for: other (awaiting placement) Time Spent With Patient Time: Total time managing care of this patient today _20___ minutes.
[2023-12-19 12:02] LABS: Glucose, Whole Blood 222 mg/dL (60-115)
[2023-12-19] MEDS: Acetaminophen 325 MG TABLET 650 MG PO (12:03)
[2023-12-19] MEDS: Insulin Lispro 100 UNIT/ML 3 ML VIAL SUBCUT ×2 (12:04→21:44)
[2023-12-19 16:59] LABS: Glucose, Whole Blood 142 mg/dL (60-115)
[2023-12-19] MEDS: metFORMIN HCl ER 500 MG TAB.ER.24H 1000 MG PO (17:59)
[2023-12-19 20:00] VITALS: BP 152/78; PULSE 92; RESP 16; TEMP 36.3; O2SAT 97
[2023-12-19 21:20] LABS: Glucose, Whole Blood 206 mg/dL (60-115)
[2023-12-19] MEDS: Insulin Glargine,Hum.rec.anlog 100 UNIT/ML 10 ML VIAL 20 UNIT SUBCUT (21:43)
[2023-12-19] MEDS: ARIPiprazole 10 MG TABLET PO (21:43)
[2023-12-19] MEDS: traZODone HCL 50 MG TABLET PO ×2 (21:43→23:11)
[2023-12-19] MEDS: lamoTRIgine 100 MG TABLET 150 MG PO (21:43)
[2023-12-20 08:00] VITALS: BP 138/83; PULSE 85; RESP 18; TEMP 36.9; O2SAT 97
[2023-12-20] MEDS: Memantine HCl 5 MG TABLET PO ×2 (08:05→21:57)
[2023-12-20] MEDS: Sertraline HCL 100 MG TABLET PO (08:05)
[2023-12-20] MEDS: Levothyroxine Sodium 150 MCG TABLET PO (08:06)
[2023-12-20 08:41] VITALS: BP 138/83; PULSE 85; RESP 18; TEMP 36.9; O2SAT 97
--- NOTE | 2023-12-20 09:26 | P.PNPSI_ITS ---
Subjective Subjective Date of Service: 12/20/23 Reason For Visit: paranoia cognitive impairment Subjective Notes: Conditional Voluntary Interim History: Reviewed with Dr. Gonzalez. Pt reports feeling alright ; Social work continues to work on placement. Pt denies any issues at this time. Pt reports sleeping well. Medication Compliance: Yes Side effects from medications: No Attending Groups: Yes Review of Systems Constitutional: Reports as per HPI Eyes: Reports as per HPI Reports as per HPI Cardiovascular: Reports as per HPI Respiratory: Reports as per HPI Gastrointestinal: Reports as per HPI Genitourinary: Reports as per HPI Musculoskeletal: Reports as per HPI Skin/Breast: Reports as per HPI Reports as per HPI Psychiatric: Reports as per HPI Endocrine: Reports as per HPI Hematologic/Lymphatic: Reports as per HPI Allergic/Immunologic: Reports as per HPI 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: Shelter Impaired Diagnostics Vital Signs (24Hr): Vital Signs - 24 hr 12/19/23 20:00 12/20/23 08:00 12/20/23 08:41 Temperature 97.4 F 98.4 F 98.4 F Pulse Rate 92 85 85 Respiratory Rate 16 18 18 Blood Pressure 152/78 H 138/83 138/83 Pulse Oximetry 97 97 97 Oxygen Delivery Method Room Air Room Air Room Air BMI result Body Mass Index 32.7 Labs 09/10/23 20:00 12/19/23 08:07 Labs: Laboratory Results - last 48 hr 12/18/23 12/18/23 12/18/23 11:48 16:42 20:27 Creatinine Estim Creat Clear Calc Estimated GFR POC Glucose 243 H 137 H 136 H 12/19/23 12/19/23 12/19/23 07:47 08:07 11:58 Creatinine 0.89 Estim Creat Clear Calc 104.4 Estimated GFR > 60 POC Glucose 107 222 H 12/19/23 12/19/23 16:55 21:15 Creatinine Estim Creat Clear Calc Estimated GFR POC Glucose 142 H 206 H Imaging Radiology Impressions: ITS Impressions Brain MRI 09/19/23 20:33 IMPRESSION: 1. No demonstrated acute intracranial abnormalities. 2. Chronic mild to moderate nonspecific white matter changes, most notably in the deep white matter of the right frontal lobe. Mild to moderate generalized cerebral volume loss. Medications Medications Current Medications Acetaminophen (Acetaminophen 325 Mg Tablet) 650 mg PO Q6H PRN PRN Reason: Headache/Pain Mild Scale (1-3) Last Admin: 12/19/23 12:03 Dose: 650 mg Al Hydroxide/Mg Hydroxide (Magnesium Hydrox/Alum Hydrox 30 Ml Oral.Susp) 30 ml PO Q6H PRN PRN Reason: Heartburn/Nausea Last Admin: 11/27/23 10:48 Dose: 30 ml Aripiprazole (Aripiprazole 10 Mg Tablet) 10 mg PO BEDTIME [facility] Last Admin: 12/19/23 21:43 Dose: 10 mg Aripiprazole (Aripiprazole Er 300 Mg Suser.Syr) 300 mg IM Q28D [facility] Last Admin: 12/10/23 17:14 Dose: 300 mg Benztropine Mesylate (Benztropine Mesylate 0.5 Mg Tablet) 0.5 mg PO TID PRN PRN Reason: Extrapyramidal Effects Glucose (Glucose Gel 15 Gm Gel..Gram.) 15 gm PO Q15M PRN; Protocol PRN Reason: per Hypoglycemia Standing Ord. Hydroxyzine HCl (Hydroxyzine Hcl 25 Mg Tablet) 25 mg PO Q6H PRN PRN Reason: Anxiety Last Admin: 12/02/23 00:02 Dose: 25 mg Dextrose (D10) 250 mls @ 750 mls/hr IV Q15M PRN; Protocol PRN Reason: per Hypoglycemia Standing Ord. Insulin Glargine (Insulin Glargine,Hum.Rec.Anlog 100 Unit/Ml 10 Ml Vial) 20 unit SUBCUT BEDTIME [facility] Last Admin: 12/19/23 21:43 Dose: 20 unit Insulin Human Lispro (Insulin Lispro 100 Unit/Ml 3 Ml Vial) 0 unit SUBCUT QIDACHS [facility]; Protocol Last Admin: 12/20/23 07:54 Dose: Not Given Lamotrigine (Lamotrigine 100 Mg Tablet) 150 mg PO BEDTIME [facility] Last Admin: 12/19/23 21:43 Dose: 150 mg Levothyroxine Sodium (Levothyroxine Sodium 150 Mcg Tablet) 150 mcg PO DAILY@0800 [facility] Last Admin: 12/20/23 08:06 Dose: 150 mcg Magnesium Hydroxide (Milk Of Magnesia 30 Ml Oral.Susp) 30 ml PO DAILY PRN PRN Reason: Constipation Memantine (Memantine Hcl 5 Mg Tablet) 5 mg PO BID [facility] Last Admin: 12/20/23 08:05 Dose: 5 mg Metformin HCl (Metformin Hcl Er 500 Mg Tab.Er.24h) 1,000 mg PO DAILY@1700 [facility] Last Admin: 12/19/23 17:59 Dose: 1,000 mg Ondansetron HCl (Ondansetron Odt 8 Mg Tab.Rapdis) 8 mg TRANSLINGU Q8H PRN PRN Reason: Nausea and Vomiting Last Admin: 12/13/23 10:51 Dose: 8 mg Sertraline HCl (Sertraline Hcl 100 Mg Tablet) 100 mg PO DAILY [facility] Last Admin: 12/20/23 08:05 Dose: 100 mg Simethicone (Simethicone 80 Mg Tab.Chew) 80 mg PO QIDWMHS PRN PRN Reason: Gas Trazodone HCl (Trazodone Hcl 50 Mg Tablet) 50 mg PO BEDTIME MRX1 PRN PRN Reason: Insomnia Last Admin: 12/19/23 23:11 Dose: 50 mg Allergies Allergies Allergy/AdvReac Type Severity Reaction Status Date / Time amoxicillin [AMOXICILLIN] Allergy Mild VOMITING/ABD Verified 09/10/23 19:44 PAIN Assessment & Plan Assessment & Plan (1) Schizoaffective disorder: Status: Acute Code(s): F25.9 - Schizoaffective disorder, unspecified (2) Hypothyroidism: Status: Acute Code(s): E03.9 - Hypothyroidism, unspecified (3) Type 2 diabetes mellitus: Status: Acute Code(s): E11.9 - Type 2 diabetes mellitus without complications (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 Plan: CV 15 minute safety checks Continue home medications: Haldol 10mg PO daily Synthroid 200mcg PO daily Obtain labs; A1C/POCs Obtain collateral from sister Obtain records from last hospitalization. MOCA Referral for [facility] services if patient is agreeable. encourage medication compliance;consider VARGAS discharge planning 09/11: Elevated fasting blood sugar elevated hemoglobin A1c 9.2 med consult placed put in point of care needed will start metformin Would benefit from clarity over recent hospitalization what this were done details regarding treatment continue Haldol unclear if patient has Healthcare proxy his Regina was low slowed cognition with poor details in depth at times during blankly regarding making judgments Unclear if any of this relates to past coma or 2 hypothyroidism. He does seem more impaired than when last seen unclear when last imaging was. Continue Haldol sitter neuro indira involvement regarding diagnostic picture. Patient does remain paranoid blunted suspicious apathetic. He might benefit from longer- term placement if available and appropriate at a later time involved [facility] involvement would be quite helpful 09/12: cont haldol get records ? hcp ? start antidep unclear hx 09/13: Keeping to self. More talkative today. Pt concerned he will be transferred to [facility]. Pt stated, The paper I signed yesterday. Are you going to send me back to the last hospital? That place was horrible . Pt was educated he signed a release of information with Dr. Gonzalez to obtain records from [facility]. Pt was given a copy of the release he signed. Despite this, pt continues to be anxious about being transferred. Pt denies SI/HI/VH/AH. 09/14: Keeping to self. active on unit. showered. Pt reports feeling alright today; pt reports he is worried about where I'm going to go . Pt continues concerned he will be transferred to [facility]. Pt denies SI/HI/VH/AH. 09/15:Pt reports feeling alright today; pt continues to report he is worried about where I'm going to go . Responding with brief responses. Guarded. Observed standing in one place for a long period of time. Appears confused. Pt denies SI/HI/VH/AH. T/W spoke to patient's sister, Ros, with patients verbal consent. Ros reports concerns regarding patients ability to make decisions regarding his mental and physical health. She plans on contacting legal advice on obtaining guardianship of patient. 09/16:Patient's presents similar to yesterday's presentation. Responding with brief responses. Guarded. Observed standing in one place for a long period of time, when asked what he is doing, pt stated, I don't know . Pt reports he plans on contacting his sister today and try to convince her for me to stay there . Pt denies SI/HI/VH/AH. Continue current tx plan. 09/17: brief responses. Guarded. Continues to clinical admissions manager one place for a long period of time, when asked what he is doing, pt stated, I don't know . Pt denies SI/HI/VH/AH. T/W and Dr. Gonzalez spoke to patient's sister, Ros. Ros stated being [facility] HCP and plans on finding document. She plans on coming to the hospital on Saturday to be present for [facility] intake. 09/21: No changes 09/22:Patient flat apathetic difficult insight and judgment his sister is healthcare proxy if needed patient is accepting medical treatment Referral to [facility] 09/23:Considers starting Haldol Decanoate patient is agreeable superficially difficulty with exec fx was seen [facility] 09/24:Pt seen in f/u mood flat dysphoric difficulty engaging in conversation preoccupied with thought he wont be living with family thing slowed apathetic no clear response with namenda ? some improvement inc lamictal start low dose sertraline inc lamictal ck tsh 09/25:Start Abilify as augmentation with Haldol see if can be more stimulating regarding depressed mood apathetic limited engagement sertraline 50 mg Lamictal 25 b.i.d. referral to [facility] which would have structure unclear if patient can engage with this he remains quite depressed has delusional beliefs regarding housing and that things have been done he has repeatedly tried to reach out to his sister denies active SI needs much help dressing talking with others encouragement to eat severe thought blocking Abilify might be more stimulating than Haldol which can be more dulling 09/26:Abilify started sertraline Lamictal encouraged step-down to [facility] encourage reality orientation denies active SI 09/27: Continue current regimen and plans 09/28: Continue current regimen and plans. 09/29: Referral to [facility] increase Abilify to 5 mg daily eventually try and taper Haldol sertraline 50 mg daily 09/30:Increase Abilify to 10 mg lower Haldol to 7 mg continue sertraline and Lamictal 10/01:Abilify increased to 10 mg continue to taper Haldol sertraline 100 mg Lamictal increased to 75 mg patient apathetic withdrawn difficulty with placement some paranoia continues difficulty with decision making at times. Not physically aggressive internally preoccupied seems somewhat improved with Abilify sertraline Continue discharge planning 10/02:Patient somewhat blunted flat slowed thinking during the day times staring. Change Abilify to 10 mg at bedtime. Scheduled Haldol will lowered to 2.5 mg Continue sertraline 100 mg Namenda 5 b.i.d. 10/03:Haldol discontinued modafinil low-dose monitor for psychosis or agitation continue discharge planning 10/06: May need to firm healthcare proxy calls have been placed to sister to try to help in discharge planning. Referrals made. Patient cooperative with care 10/07:Pharmacy ordering Abilify maintain a increase modafinil 100 mg patient remains flat passive depressed some improvement noted no current paranoia noted continue discharge planning no current safe discharge plan 10/08: Increase Lamictal 100 mg Abilify Maintena 400 mg hold modafinil unclear if was overly stimulating patient continues to present internally preoccupied. 10/09:Healthcare proxy invoked discharge planning continue Lamictal Abilify pending maintain a 10/10:Healthcare proxy invoked new CV signed discharge planning. 10/11 keep same treatment 10/12 keep same treatment 10/13: Continue plan of care Lamictal Abilify discharge planning sertraline 10/14: stable. continue current mgmt. 10/15: stable. continue current mgmt. 10/16: stable presentation. continue current mgmt. 10/17: as for yesterday. 10/18: no changes. 10/19: stabel, safe. no change. 10/20: no change in presentation. calm, cooperative. active on unit, social with select peers, attending groups. Pt reports feeling alright . denies SI/HI/VH/AH. Social work waiting to hear from possible placement location. Continue current tx plan. 10/21: continue current tx plan. awaiting placement. 10/22: calm, cooperative. active on unit, social with select peers, attending groups. Pt reports feeling good ; pt stated, I'm waiting to see where I'm going . denies SI/HI/VH/AH. Showered with encouragement. 10/23: continue current tx plan. 10/24: calm, cooperative. active on unit, social with select peers, attending groups. Pt reports feeling good ; pt stated, I just want a place to live . 10/25- likely at baseline for him- CTP 10/26 CTP likely needs placement 10/27: continue current tx plan. awaiting placement. 10/28: Similar to yesterday. No change in presentation. 10/29: Pt reports feeling good ;pt stated, just waiting for a place to live . denies any issues at this time. 10/30: calm, cooperative. active on unit, social with select peers, attending groups. Pt reports feeling worried about where I am going to live . denies any issues at this time. 10/21: no change in presentation. continue current tx plan. 11/01: continue current management and treatment plan. 11/02: Continue current management and treatment plan. 11/03: Continue current management and treatment plan. 11/04: Active on unit. calm, cooperative. social with select peers, attending groups. denies any issues at this time. He reports sleeping well. Pt reports he would be interested in applying for [facility] services; social work aware. 11/05: Active on unit. calm, cooperative. social with select peers, attending groups. denies any issues at this time. Pt reports feeling okay ; he reports anxiety regarding placement. Continue current tx plan. 11/07/23 DMH referral has appropriate concerns re living stuation cont abilify lamictal 11/08/23 Pt cooperative with care d/c planning working with sw cont d/c planning cont lamictal abilify 11/12/23 Patient increasingly despairing aware of no clear discharge plan periods needs cuing for much functioning limited social engaged needs help regarding diabetes and medication compliance reportedly had been rejected by multiple rest homes patient not threatening intermittently hopeless helpless very limited family contact at this time 11/13/23 pt flat depressed hopeless helpless unable to fx without structure 11/15 continue tx. 11/16 continue tx. 11/18/2023 Continue plan of care referral to [facility] TSH low will decrease levothyroxine 11/19/23 Pt flat dysphor ic inc hopeless helpless lamictal 150 hs dec levothyroxine 150 d/c planning cont 11/20/23 lamictal inc d/c planning dm referral 12/02/2023 Continue Lamictal Abilify patient cooperative with care gets despairing at times regarding lack of family support problematic discharge planning in relationship to finding suitable structured place to live 12/02: Social with peers. Per nursing, pt did not sleep last night. Pt reports he did not sleeping because he wasn't tired but feel okay ; ordered Ativan 1mg PO bedtime for tonight, pt aware. 12/03: In bed sleeping, pt reports he is catching up on sleep from the night before. Calm, cooperative. T/W and retail worker, Billie, with pt to discuss possibly going to the [facility]. Pt reports he would like to call his sister and speak to her before deciding. DC Ativan. 12/04: Active on unit, social with peers. attending groups. T/W and retail worker, Billie, met with pt to discuss discharge plan. Pt reports he doesn't know if he would want to go to a homeless intermediate; he states he would rather live on the street because I've done it before . Pt encouraged to consider benefits of going to a intermediate with the winter months coming; he agreed to doing phone intake with social media community manager on Saturday with [facility]. 12/05: Pt presents similar to yesterday. Continues to perseverate about [facility] being a intermediate and not a program; He continues to agree to do phone intake on Saturday. Discussed VARGAS, pt reports he want time to consider d/t not liking needles . 12/08: Pt had phone interview with [facility], however, after multiple attempts at calling them, no one at [facility] picked up the phone to conduct interview. retail worker to get into contact with them again. Pt denies any issues at this time. 12/09: Active on unit, social with peers. Pt denies any issues at this time. Patient agreed to receiving Abilify Maintena; risks/benefits reviewed. Waiting on placement. 12/10: Patient received Abilify Maintena yesterday. He denies any side effects. Pleasant. Waiting on placement. 12/11: continue current tx plan. 12/12: similar to days prior. waiting on placement. continue current tx plan. 12/13: appearing more depressed or demoralized. notes lots of people come and go. continue current mgmt. 12/14: same as for yesterday: find me a place to live? continue current mgmt. 12/15: out and about more. otherwise stable. continue current mgmt. 12/16: continue current tx plan. 12/17: continue current tx plan. 12/18: awaiting placement. denies any issues. 12/19: Pt reports feeling alright ; Social work continues to work on placement. Pt denies any issues at this time. Pt reports sleeping well. Reason for continued inpatient stay Substantial Risk for: other (awaiting placement. ) Time Spent With Patient Time: Total time managing care of this patient today _20___ minutes.
[2023-12-20 11:58] LABS: Glucose, Whole Blood 114 mg/dL (60-115)
[2023-12-20 11:58] LABS: Glucose, Whole Blood 152 mg/dL (60-115)
[2023-12-20] MEDS: Insulin Lispro 100 UNIT/ML 3 ML VIAL SUBCUT ×2 (12:11→21:56)
[2023-12-20 17:00] LABS: Glucose, Whole Blood 89 mg/dL (60-115)
[2023-12-20] MEDS: metFORMIN HCl ER 500 MG TAB.ER.24H 1000 MG PO (17:33)
[2023-12-20 20:00] VITALS: BP 143/75; PULSE 95; RESP 16; TEMP 36.3; O2SAT 97
[2023-12-20 20:09] LABS: Glucose, Whole Blood 176 mg/dL (60-115)
[2023-12-20] MEDS: Insulin Glargine,Hum.rec.anlog 100 UNIT/ML 10 ML VIAL 20 UNIT SUBCUT (21:56)
[2023-12-20] MEDS: traZODone HCL 50 MG TABLET PO ×2 (21:57→23:21)
[2023-12-20] MEDS: lamoTRIgine 100 MG TABLET 150 MG PO (21:57)
[2023-12-20] MEDS: ARIPiprazole 10 MG TABLET PO (21:57)
[2023-12-21 08:03] VITALS: BP 129/70; PULSE 70; RESP 16; TEMP 36.7; O2SAT 98
[2023-12-21 08:13] LABS: Glucose, Whole Blood 95 mg/dL (60-115)
--- NOTE | 2023-12-21 08:52 | P.PNPSI_ITS ---
Subjective Subjective Date of Service: 12/21/23 Reason For Visit: paranoia cognitive impairment Interim History: Met briefly with pt, discussed with team. Pt awaits placement. POC values reviewed with team. Well engaged, states he has no current concerns about his treatment or plan of care. 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 Vital Signs (24Hr): Vital Signs - 24 hr 12/20/23 20:00 12/21/23 08:03 Temperature 97.3 F 98.1 F Pulse Rate 95 70 Respiratory Rate 16 16 Blood Pressure 143/75 H 129/70 Pulse Oximetry 97 98 Oxygen Delivery Method Room Air Room Air BMI result Body Mass Index 32.7 Labs 09/10/23 20:00 12/19/23 08:07 Labs: Laboratory Results - last 48 hr 12/19/23 12/19/23 12/19/23 08:07 11:58 16:55 Creatinine 0.89 Estim Creat Clear Calc 104.4 Estimated GFR > 60 POC Glucose 222 H 142 H 12/19/23 12/20/23 12/20/23 21:15 07:52 11:55 Creatinine Estim Creat Clear Calc Estimated GFR POC Glucose 206 H 114 152 H 12/20/23 12/20/23 12/21/23 16:57 19:58 08:09 Creatinine Estim Creat Clear Calc Estimated GFR POC Glucose 89 176 H 95 Imaging Radiology Impressions: ITS Impressions Brain MRI 09/19/23 20:33 IMPRESSION: 1. No demonstrated acute intracranial abnormalities. 2. Chronic mild to moderate nonspecific white matter changes, most notably in the deep white matter of the right frontal lobe. Mild to moderate generalized cerebral volume loss. Medications Medications Current Medications Acetaminophen (Acetaminophen 325 Mg Tablet) 650 mg PO Q6H PRN PRN Reason: Headache/Pain Mild Scale (1-3) Last Admin: 12/19/23 12:03 Dose: 650 mg Al Hydroxide/Mg Hydroxide (Magnesium Hydrox/Alum Hydrox 30 Ml Oral.Susp) 30 ml PO Q6H PRN PRN Reason: Heartburn/Nausea Last Admin: 11/27/23 10:48 Dose: 30 ml Aripiprazole (Aripiprazole 10 Mg Tablet) 10 mg PO BEDTIME [facility] Last Admin: 12/20/23 21:57 Dose: 10 mg Aripiprazole (Aripiprazole Er 300 Mg Suser.Syr) 300 mg IM Q28D [facility] Last Admin: 12/10/23 17:14 Dose: 300 mg Benztropine Mesylate (Benztropine Mesylate 0.5 Mg Tablet) 0.5 mg PO TID PRN PRN Reason: Extrapyramidal Effects Glucose (Glucose Gel 15 Gm Gel..Gram.) 15 gm PO Q15M PRN; Protocol PRN Reason: per Hypoglycemia Standing Ord. Hydroxyzine HCl (Hydroxyzine Hcl 25 Mg Tablet) 25 mg PO Q6H PRN PRN Reason: Anxiety Last Admin: 12/02/23 00:02 Dose: 25 mg Dextrose (D10) 250 mls @ 750 mls/hr IV Q15M PRN; Protocol PRN Reason: per Hypoglycemia Standing Ord. Insulin Glargine (Insulin Glargine,Hum.Rec.Anlog 100 Unit/Ml 10 Ml Vial) 20 unit SUBCUT BEDTIME [facility] Last Admin: 12/20/23 21:56 Dose: 20 unit Insulin Human Lispro (Insulin Lispro 100 Unit/Ml 3 Ml Vial) 0 unit SUBCUT QIDACHS [facility]; Protocol Last Admin: 12/20/23 21:56 Dose: 2 unit Lamotrigine (Lamotrigine 100 Mg Tablet) 150 mg PO BEDTIME [facility] Last Admin: 12/20/23 21:57 Dose: 150 mg Levothyroxine Sodium (Levothyroxine Sodium 150 Mcg Tablet) 150 mcg PO DAILY@0800 [facility] Last Admin: 12/20/23 08:06 Dose: 150 mcg Magnesium Hydroxide (Milk Of Magnesia 30 Ml Oral.Susp) 30 ml PO DAILY PRN PRN Reason: Constipation Memantine (Memantine Hcl 5 Mg Tablet) 5 mg PO BID [facility] Last Admin: 12/20/23 21:57 Dose: 5 mg Metformin HCl (Metformin Hcl Er 500 Mg Tab.Er.24h) 1,000 mg PO DAILY@1700 [facility] Last Admin: 10/18/24 17:33 Dose: 1,000 mg Ondansetron HCl (Ondansetron Odt 8 Mg Tab.Rapdis) 8 mg TRANSLINGU Q8H PRN PRN Reason: Nausea and Vomiting Last Admin: 12/13/23 10:51 Dose: 8 mg Sertraline HCl (Sertraline Hcl 100 Mg Tablet) 100 mg PO DAILY MANAS Last Admin: 12/20/23 08:05 Dose: 100 mg Simethicone (Simethicone 80 Mg Tab.Chew) 80 mg PO QIDWMHS PRN PRN Reason: Gas Trazodone HCl (Trazodone Hcl 50 Mg Tablet) 50 mg PO BEDTIME MRX1 PRN PRN Reason: Insomnia Last Admin: 12/20/23 23:21 Dose: 50 mg Allergies Allergies Allergy/AdvReac Type Severity Reaction Status Date / Time amoxicillin [AMOXICILLIN] Allergy Mild VOMITING/ABD Verified 09/10/23 19:44 PAIN Assessment & Plan Assessment & Plan (1) Schizoaffective disorder: Status: Acute Code(s): F25.9 - Schizoaffective disorder, unspecified (2) Hypothyroidism: Status: Acute Code(s): E03.9 - Hypothyroidism, unspecified (3) Type 2 diabetes mellitus: Status: Acute Code(s): E11.9 - Type 2 diabetes mellitus without complications (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 Plan: CV 15 minute safety checks Continue home medications: Haldol 10mg PO daily Synthroid 200mcg PO daily Obtain labs; A1C/POCs Obtain collateral from sister Obtain records from last hospitalization. MOCA Referral for [facility] services if patient is agreeable. encourage medication compliance;consider VARGAS discharge planning 09/11: Elevated fasting blood sugar elevated hemoglobin A1c 9.2 med consult placed put in point of care needed will start metformin Would benefit from clarity over recent hospitalization what this were done details regarding treatment continue Haldol unclear if patient has Healthcare proxy his [place] was low slowed cognition with poor details in depth at times during blankly regarding making judgments Unclear if any of this relates to past coma or 2 hypothyroidism. He does seem more impaired than when last seen unclear when last imaging was. Continue Haldol sitter neuro indira involvement regarding diagnostic picture. Patient does remain paranoid blunted suspicious apathetic. He might benefit from longer- term placement if available and appropriate at a later time involved [facility] involvement would be quite helpful 09/12: cont haldol get records ? hcp ? start antidep unclear hx 09/13: Keeping to self. More talkative today. Pt concerned he will be transferred to [facility]. Pt stated, The paper I signed yesterday. Are you going to send me back to the last hospital? That place was horrible . Pt was educated he signed a release of information with Dr. Gonzalez to obtain records from [facility]. Pt was given a copy of the release he signed. Despite this, pt continues to be anxious about being transferred. Pt denies SI/HI/VH/AH. 09/14: Keeping to self. active on unit. showered. Pt reports feeling alright today; pt reports he is worried about where I'm going to go . Pt continues concerned he will be transferred to [facility]. Pt denies SI/HI/VH/AH. 09/15:Pt reports feeling alright today; pt continues to report he is worried about where I'm going to go . Responding with brief responses. Guarded. Observed standing in one place for a long period of time. Appears confused. Pt denies SI/HI/VH/AH. T/W spoke to patient's sister, Ros, with patients verbal consent. Ros reports concerns regarding patients ability to make decisions regarding his mental and physical health. She plans on contacting legal advice on obtaining guardianship of patient. 09/16:Patient's presents similar to yesterday's presentation. Responding with brief responses. Guarded. Observed standing in one place for a long period of time, when asked what he is doing, pt stated, I don't know . Pt reports he plans on contacting his sister today and try to convince her for me to stay there . Pt denies SI/HI/VH/AH. Continue current tx plan. 09/17: brief responses. Guarded. 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 Pt denies SI/HI/VH/AH. T/W and Dr. Gonzalez spoke to patient's sister, Ros. Ros stated being [facility] HCP and plans on finding document. She plans on coming to the hospital on Saturday to be present for [facility] intake. 09/21: No changes 09/22:Patient flat apathetic difficult insight and judgment his sister is healthcare proxy if needed patient is accepting medical treatment Referral to [facility] 09/23:Considers starting Haldol Decanoate patient is agreeable superficially difficulty with exec fx was seen [facility] 09/24:Pt seen in f/u mood flat dysphoric difficulty engaging in conversation preoccupied with thought he wont be living with family thing slowed apathetic no clear response with namenda ? some improvement inc lamictal start low dose sertraline inc lamictal ck tsh 09/25:Start Abilify as augmentation with Haldol see if can be more stimulating regarding depressed mood apathetic limited engagement sertraline 50 mg Lamictal 25 b.i.d. referral to [facility] which would have structure unclear if patient can engage with this he remains quite depressed has delusional beliefs regarding housing and that things have been done he has repeatedly tried to reach out to his sister denies active SI needs much help dressing talking with others encouragement to eat severe thought blocking Abilify might be more stimulating than Haldol which can be more dulling 09/26:Abilify started sertraline Lamictal encouraged step-down to [facility] encourage reality orientation denies active SI 09/27: Continue current regimen and plans 09/28: Continue current regimen and plans. 09/29: Referral to [facility] increase Abilify to 5 mg daily eventually try and taper Haldol sertraline 50 mg daily 09/30:Increase Abilify to 10 mg lower Haldol to 7 mg continue sertraline and Lamictal 10/01:Abilify increased to 10 mg continue to taper Haldol sertraline 100 mg Lamictal increased to 75 mg patient apathetic withdrawn difficulty with placement some paranoia continues difficulty with decision making at times. Not physically aggressive internally preoccupied seems somewhat improved with Abilify sertraline Continue discharge planning 10/02:Patient somewhat blunted flat slowed thinking during the day times staring. Change Abilify to 10 mg at bedtime. Scheduled Haldol will lowered to 2.5 mg Continue sertraline 100 mg Namenda 5 b.i.d. 10/03:Haldol discontinued modafinil low-dose monitor for psychosis or agitation continue discharge planning 10/06: May need to firm healthcare proxy calls have been placed to sister to try to help in discharge planning. Referrals made. Patient cooperative with care 10/07:Pharmacy ordering Abilify maintain a increase modafinil 100 mg patient remains flat passive depressed some improvement noted no current paranoia noted continue discharge planning no current safe discharge plan 10/08: Increase Lamictal 100 mg Abilify Maintena 400 mg hold modafinil unclear if was overly stimulating patient continues to present internally preoccupied. 10/09:Healthcare proxy invoked discharge planning continue Lamictal Abilify pending maintain a 10/10:Healthcare proxy invoked new CV signed discharge planning. 10/11 keep same treatment 10/12 keep same treatment 10/13: Continue plan of care Lamictal Abilify discharge planning sertraline 10/14: stable. continue current mgmt. 10/15: stable. continue current mgmt. 10/16: stable presentation. continue current mgmt. 10/17: as for yesterday. 10/18: no changes. 10/19: stabel, safe. no change. 10/20: no change in presentation. calm, cooperative. active on unit, social with select peers, attending groups. Pt reports feeling alright . denies SI/HI/VH/AH. Social work waiting to hear from possible placement location. Continue current tx plan. 10/21: continue current tx plan. awaiting placement. 10/22: calm, cooperative. active on unit, social with select peers, attending groups. Pt reports feeling good ; pt stated, I'm waiting to see where I'm going . denies SI/HI/VH/AH. Showered with encouragement. 10/23: continue current tx plan. 10/24: calm, cooperative. active on unit, social with select peers, attending groups. Pt reports feeling good ; pt stated, I just want a place to live . 10/25- likely at baseline for him- CTP 10/26 CTP likely needs placement 10/27: continue current tx plan. awaiting placement. 10/28: Similar to yesterday. No change in presentation. 10/29: Pt reports feeling good ;pt stated, just waiting for a place to live . denies any issues at this time. 10/30: calm, cooperative. active on unit, social with select peers, attending groups. Pt reports feeling worried about where I am going to live . denies any issues at this time. 10/21: no change in presentation. continue current tx plan. 11/01: continue current management and treatment plan. 11/02: Continue current management and treatment plan. 11/03: Continue current management and treatment plan. 11/04: Active on unit. calm, cooperative. social with select peers, attending groups. denies any issues at this time. He reports sleeping well. Pt reports he would be interested in applying for [facility] services; social work aware. 11/05: Active on unit. calm, cooperative. social with select peers, attending groups. denies any issues at this time. Pt reports feeling okay ; he reports anxiety regarding placement. Continue current tx plan. 11/07/23 [facility] referral has appropriate concerns re living stuation cont abilify lamictal 11/08/23 Pt cooperative with care d/c planning working with cont d/c planning cont lamictal abilify 11/12/23 Patient increasingly despairing aware of no clear discharge plan periods needs cuing for much functioning limited social engaged needs help regarding diabetes and medication compliance reportedly had been rejected by multiple rest homes patient not threatening intermittently hopeless helpless very limited family contact at this time 11/13/23 pt flat depressed hopeless helpless unable to fx without structure 11/15 continue tx. 11/16 continue tx. 11/18/2023 Continue plan of care referral to [facility] TSH low will decrease levothyroxine 11/19/23 Pt flat dysphor ic inc hopeless helpless lamictal 150 hs dec levothyroxine 150 d/c planning cont 11/20/23 lamictal inc d/c planning dmh referral 12/02/2023 Continue Lamictal Abilify patient cooperative with care gets despairing at times regarding lack of family support problematic discharge planning in relationship to finding suitable structured place to live 12/02: Social with peers. Per nursing, pt did not sleep last night. Pt reports he did not sleeping because he wasn't tired but feel okay ; ordered Ativan 1mg PO bedtime for tonight, pt aware. 12/03: In bed sleeping, pt reports he is catching up on sleep from the night before. Calm, cooperative. T/W and printed circuit board reworker, Billie, with pt to discuss possibly going to the [facility]. Pt reports he would like to call his sister and speak to her before deciding. DC Ativan. 12/04: Active on unit, social with peers. attending groups. T/W and printed circuit board reworker, Billie, met with pt to discuss discharge plan. Pt reports he doesn't know if he would want to go to a homeless nursing home; he states he would rather live on the street because I've done it before . Pt encouraged to consider benefits of going to a nursing home with the winter months coming; he agreed to doing phone intake with transition social worker on Saturday with [facility]. 12/05: Pt presents similar to yesterday. Continues to perseverate about [facility] being a nursing home and not a program; He continues to agree to do phone intake on Saturday. Discussed VARGAS, pt reports he want time to consider d/t not liking needles . 12/08: Pt had phone interview with [facility], however, after multiple attempts at calling them, no one at [facility] picked up the phone to conduct interview. printed circuit board reworker to get into contact with them again. Pt denies any issues at this time. 12/09: Active on unit, social with peers. Pt denies any issues at this time. Patient agreed to receiving Abilify Maintena; risks/benefits reviewed. Waiting on placement. 12/10: Patient received Abilify Maintena yesterday. He denies any side effects. Pleasant. Waiting on placement. 12/11: continue current tx plan. 12/12: similar to days prior. waiting on placement. continue current tx plan. 12/13: appearing more depressed or demoralized. notes lots of people come and go. continue current mgmt. 12/14: same as for yesterday: find me a place to live? continue current mgmt. 12/15: out and about more. otherwise stable. continue current mgmt. 12/16: continue current tx plan. 12/17: continue current tx plan. 12/18: awaiting placement. denies any issues. 12/19: Pt reports feeling alright ; Social work continues to work on placement. Pt denies any issues at this time. Pt reports sleeping well. 12/20: Continue plan of care Reason for continued inpatient stay Substantial Risk for: rapid decompensation Time Spent With Patient Time: Total time managing care of this patient today ____ minutes.
[2023-12-21] MEDS: Memantine HCl 5 MG TABLET PO ×2 (09:00→21:44)
[2023-12-21] MEDS: Sertraline HCL 100 MG TABLET PO (09:00)
[2023-12-21] MEDS: Levothyroxine Sodium 150 MCG TABLET PO (09:00)
[2023-12-21 11:59] LABS: Glucose, Whole Blood 102 mg/dL (60-115)
[2023-12-21 17:02] LABS: Glucose, Whole Blood 146 mg/dL (60-115)
[2023-12-21] MEDS: metFORMIN HCl ER 500 MG TAB.ER.24H 1000 MG PO (17:14)
[2023-12-21 20:00] VITALS: BP 133/76; RESP 16; O2SAT 95
[2023-12-21 20:52] LABS: Glucose, Whole Blood 197 mg/dL (60-115)
[2023-12-21] MEDS: traZODone HCL 50 MG TABLET PO ×2 (21:43→23:38)
[2023-12-21] MEDS: lamoTRIgine 100 MG TABLET 150 MG PO (21:43)
[2023-12-21] MEDS: ARIPiprazole 10 MG TABLET PO (21:44)
[2023-12-21] MEDS: Insulin Lispro 100 UNIT/ML 3 ML VIAL SUBCUT (21:46)
[2023-12-21] MEDS: Insulin Glargine,Hum.rec.anlog 100 UNIT/ML 10 ML VIAL 20 UNIT SUBCUT (21:47)
[2023-12-21] MEDS: hydrOXYzine HCL 25 MG TABLET PO (23:37)
[2023-12-22 07:47] LABS: Glucose, Whole Blood 109 mg/dL (60-115)
[2023-12-22 08:17] VITALS: BP 121/62; PULSE 75; RESP 16; TEMP 36.4; O2SAT 97
[2023-12-22] MEDS: Sertraline HCL 100 MG TABLET PO (09:04)
[2023-12-22] MEDS: Memantine HCl 5 MG TABLET PO ×2 (09:04→21:14)
[2023-12-22] MEDS: Levothyroxine Sodium 150 MCG TABLET PO (09:04)
--- NOTE | 2023-12-22 09:10 | HO.PSYCHPN ---
Subjective Subjective Date of Service: 12/22/23 Reason For Visit: paranoia cognitive impairment Subjective Notes: Conditional Voluntary Interim History: Met with pt, discussed with team who report pt is feeling down as he has been in hospital for several months unable to find housing. States sleep is interrupted and he worries he will not find a place to live but is making an effort. POC's reviewed. Pt denies SI/HI/AH/VH. Medication Compliance: Yes Side effects from medications: No Review of Systems Acute medical concerns: No Medical Review of Systems: unchanged Review of Systems Review of Systems Yes all other systems are reviewed and are negative 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: Cottrell Operator Impaired Diagnostics Vital Signs (24Hr): Vital Signs - 24 hr 12/21/23 20:00 12/22/23 08:17 Temperature 97.6 F Pulse Rate 75 Respiratory Rate 16 16 Blood Pressure 133/76 121/62 Pulse Oximetry 95 97 Oxygen Delivery Method Room Air Room Air BMI result Body Mass Index 32.7 Labs 09/10/23 20:00 12/19/23 08:07 Labs: Laboratory Results - last 48 hr 12/20/23 12/20/23 12/20/23 07:52 11:55 16:57 POC Glucose 114 152 H 89 12/20/23 12/21/23 12/21/23 19:58 08:09 11:54 POC Glucose 176 H 95 102 12/21/23 12/21/23 12/22/23 16:58 20:47 07:43 POC Glucose 146 H 197 H 109 Imaging Radiology Impressions: ITS Impressions Brain MRI 09/19/23 20:33 IMPRESSION: 1. No demonstrated acute intracranial abnormalities. 2. Chronic mild to moderate nonspecific white matter changes, most notably in the deep white matter of the right frontal lobe. Mild to moderate generalized cerebral volume loss. Medications Medications Current Medications Acetaminophen (Acetaminophen 325 Mg Tablet) 650 mg PO Q6H PRN PRN Reason: Headache/Pain Mild Scale (1-3) Last Admin: 12/19/23 12:03 Dose: 650 mg Al Hydroxide/Mg Hydroxide (Magnesium Hydrox/Alum Hydrox 30 Ml Oral.Susp) 30 ml PO Q6H PRN PRN Reason: Heartburn/Nausea Last Admin: 11/27/23 10:48 Dose: 30 ml Aripiprazole (Aripiprazole 10 Mg Tablet) 10 mg PO BEDTIME [facility] Last Admin: 12/21/23 21:44 Dose: 10 mg Aripiprazole (Aripiprazole Er 300 Mg Suser.Syr) 300 mg IM Q28D [facility] Last Admin: 12/10/23 17:14 Dose: 300 mg Benztropine Mesylate (Benztropine Mesylate 0.5 Mg Tablet) 0.5 mg PO TID PRN PRN Reason: Extrapyramidal Effects Glucose (Glucose Gel 15 Gm Gel..Gram.) 15 gm PO Q15M PRN; Protocol PRN Reason: per Hypoglycemia Standing Ord. Hydroxyzine HCl (Hydroxyzine Hcl 25 Mg Tablet) 25 mg PO Q6H PRN PRN Reason: Anxiety Last Admin: 12/21/23 23:37 Dose: 25 mg Dextrose (D10) 250 mls @ 750 mls/hr IV Q15M PRN; Protocol PRN Reason: per Hypoglycemia Standing Ord. Insulin Glargine (Insulin Glargine,Hum.Rec.Anlog 100 Unit/Ml 10 Ml Vial) 20 unit SUBCUT BEDTIME [facility] Last Admin: 12/21/23 21:47 Dose: 20 unit Insulin Human Lispro (Insulin Lispro 100 Unit/Ml 3 Ml Vial) 0 unit SUBCUT QIDACHS [facility]; Protocol Last Admin: 12/22/23 08:13 Dose: Not Given Lamotrigine (Lamotrigine 100 Mg Tablet) 150 mg PO BEDTIME [facility] Last Admin: 12/21/23 21:43 Dose: 150 mg Levothyroxine Sodium (Levothyroxine Sodium 150 Mcg Tablet) 150 mcg PO DAILY@0800 [facility] Last Admin: 12/22/23 09:04 Dose: 150 mcg Magnesium Hydroxide (Milk Of Magnesia 30 Ml Oral.Susp) 30 ml PO DAILY PRN PRN Reason: Constipation Memantine (Memantine Hcl 5 Mg Tablet) 5 mg PO BID [facility] Last Admin: 12/22/23 09:04 Dose: 5 mg Metformin HCl (Metformin Hcl Er 500 Mg Tab.Er.24h) 1,000 mg PO DAILY@1700 [facility] Last Admin: 12/21/23 17:14 Dose: 1,000 mg Ondansetron HCl (Ondansetron Odt 8 Mg Tab.Rapdis) 8 mg TRANSLINGU Q8H PRN PRN Reason: Nausea and Vomiting Last Admin: 12/13/23 10:51 Dose: 8 mg Sertraline HCl (Sertraline Hcl 100 Mg Tablet) 100 mg PO DAILY MANAS Last Admin: 12/22/23 09:04 Dose: 100 mg Simethicone (Simethicone 80 Mg Tab.Chew) 80 mg PO QIDWMHS PRN PRN Reason: Gas Trazodone HCl (Trazodone Hcl 50 Mg Tablet) 50 mg PO BEDTIME MRX1 PRN PRN Reason: Insomnia Last Admin: 12/21/23 23:38 Dose: 50 mg Allergies Allergies Allergy/AdvReac Type Severity Reaction Status Date / Time amoxicillin [AMOXICILLIN] Allergy Mild VOMITING/ABD Verified 09/10/23 19:44 PAIN Assessment & Plan Assessment & Plan (1) Schizoaffective disorder: Status: Acute Code(s): F25.9 - Schizoaffective disorder, unspecified (2) Hypothyroidism: Status: Acute Code(s): E03.9 - Hypothyroidism, unspecified (3) Type 2 diabetes mellitus: Status: Acute Code(s): E11.9 - Type 2 diabetes mellitus without complications (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 Plan: CV 15 minute safety checks Continue home medications: Haldol 10mg PO daily Synthroid 200mcg PO daily Obtain labs; A1C/POCs Obtain collateral from sister Obtain records from last hospitalization. MOCA Referral for [facility] services if patient is agreeable. encourage medication compliance;consider VARGAS discharge planning 09/11: Elevated fasting blood sugar elevated hemoglobin A1c 9.2 med consult placed put in point of care needed will start metformin Would benefit from clarity over recent hospitalization what this were done details regarding treatment continue Haldol unclear if patient has Healthcare proxy his Pike was low slowed cognition with poor details in depth at times during blankly regarding making judgments Unclear if any of this relates to past coma or 2 hypothyroidism. He does seem more impaired than when last seen unclear when last imaging was. Continue Haldol sitter neuro indira involvement regarding diagnostic picture. Patient does remain paranoid blunted suspicious apathetic. He might benefit from longer-term placement if available and appropriate at a later time involved [facility]H involvement would be quite helpful 09/12: cont haldol get records ? hcp ? start antidep unclear hx 09/13: Keeping to self. More talkative today. Pt concerned he will be transferred to [facility]. Pt stated, The paper I signed yesterday. Are you going to send me back to the last hospital? That place was horrible . Pt was educated he signed a release of information with Dr. Gonzalez to obtain records from [facility]. Pt was given a copy of the release he signed. Despite this, pt continues to be anxious about being transferred. Pt denies SI/HI/VH/AH. 09/14: Keeping to self. active on unit. showered. Pt reports feeling alright today; pt reports he is worried about where I'm going to go . Pt continues concerned he will be transferred to [facility]. Pt denies SI/HI/VH/AH. 09/15:Pt reports feeling alright today; pt continues to report he is worried about where I'm going to go . Responding with brief responses. Guarded. Observed standing in one place for a long period of time. Appears confused. Pt denies SI/HI/VH/AH. T/W spoke to patient's sister, Ros, with patients verbal consent. Ros reports concerns regarding patients ability to make decisions regarding his mental and physical health. She plans on contacting legal advice on obtaining guardianship of patient. 09/16:Patient's presents similar to yesterday's presentation. Responding with brief responses. Guarded. Observed standing in one place for a long period of time, when asked what he is doing, pt stated, I don't know . Pt reports he plans on contacting his sister today and try to convince her for me to stay there . Pt denies SI/HI/VH/AH. Continue current tx plan. 09/17: brief responses. Guarded. 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 Pt denies SI/HI/VH/AH. T/W and Dr. Gonzalez spoke to patient's sister, Ros. Ros stated being [facility] HCP and plans on finding document. She plans on coming to the hospital on Saturday to be present for [facility] intake. 09/21: No changes 09/22:Patient flat apathetic difficult insight and judgment his sister is healthcare proxy if needed patient is accepting medical treatment Referral to [facility] 09/23:Considers starting Haldol Decanoate patient is agreeable superficially difficulty with exec fx was seen [facility] 09/24:Pt seen in f/u mood flat dysphoric difficulty engaging in conversation preoccupied with thought he wont be living with family thing slowed apathetic no clear response with namenda ? some improvement inc lamictal start low dose sertraline inc lamictal ck tsh 09/25:Start Abilify as augmentation with Haldol see if can be more stimulating regarding depressed mood apathetic limited engagement sertraline 50 mg Lamictal 25 b.i.d. referral to [facility] which would have structure unclear if patient can engage with this he remains quite depressed has delusional beliefs regarding housing and that things have been done he has repeatedly tried to reach out to his sister denies active SI needs much help dressing talking with others encouragement to eat severe thought blocking Abilify might be more stimulating than Haldol which can be more dulling 09/26:Abilify started sertraline Lamictal encouraged step-down to [facility] encourage reality orientation denies active SI 09/27: Continue current regimen and plans 09/28: Continue current regimen and plans. 09/29: Referral to [facility] increase Abilify to 5 mg daily eventually try and taper Haldol sertraline 50 mg daily 09/30:Increase Abilify to 10 mg lower Haldol to 7 mg continue sertraline and Lamictal 10/01:Abilify increased to 10 mg continue to taper Haldol sertraline 100 mg Lamictal increased to 75 mg patient apathetic withdrawn difficulty with placement some paranoia continues difficulty with decision making at times. Not physically aggressive internally preoccupied seems somewhat improved with Abilify sertraline Continue discharge planning 10/02:Patient somewhat blunted flat slowed thinking during the day times staring. Change Abilify to 10 mg at bedtime. Scheduled Haldol will lowered to 2.5 mg Continue sertraline 100 mg Namenda 5 b.i.d. 10/03:Haldol discontinued modafinil low-dose monitor for psychosis or agitation continue discharge planning 10/06: May need to firm healthcare proxy calls have been placed to sister to try to help in discharge planning. Referrals made. Patient cooperative with care 10/07:Pharmacy ordering Abilify maintain a increase modafinil 100 mg patient remains flat passive depressed some improvement noted no current paranoia noted continue discharge planning no current safe discharge plan 10/08: Increase Lamictal 100 mg Abilify Maintena 400 mg hold modafinil unclear if was overly stimulating patient continues to present internally preoccupied. 10/09:Healthcare proxy invoked discharge planning continue Lamictal Abilify pending maintain a 10/10:Healthcare proxy invoked new CV signed discharge planning. 10/11 keep same treatment 10/12 keep same treatment 10/13: Continue plan of care Lamictal Abilify discharge planning sertraline 10/14: stable. continue current mgmt. 10/15: stable. continue current mgmt. 10/16: stable presentation. continue current mgmt. 10/17: as for yesterday. 10/18: no changes. 10/19: stabel, safe. no change. 10/20: no change in presentation. calm, cooperative. active on unit, social with select peers, attending groups. Pt reports feeling alright . denies SI/HI/VH/AH. Social work waiting to hear from possible placement location. Continue current tx plan. 10/21: continue current tx plan. awaiting placement. 10/22: calm, cooperative. active on unit, social with select peers, attending groups. Pt reports feeling good ; pt stated, I'm waiting to see where I'm going . denies SI/HI/VH/AH. Showered with encouragement. 10/23: continue current tx plan. 08/23: calm, cooperative. active on unit, social with select peers, attending groups. Pt reports feeling good ; pt stated, I just want a place to live . 10/25- likely at baseline for him- CTP 10/26 CTP likely needs placement 10/27: continue current tx plan. awaiting placement. 10/28: Similar to yesterday. No change in presentation. 10/29: Pt reports feeling good ;pt stated, just waiting for a place to live . denies any issues at this time. 10/30: calm, cooperative. active on unit, social with select peers, attending groups. Pt reports feeling worried about where I am going to live . denies any issues at this time. 10/21: no change in presentation. continue current tx plan. 11/01: continue current management and treatment plan. 11/02: Continue current management and treatment plan. 11/03: Continue current management and treatment plan. 11/04: Active on unit. calm, cooperative. social with select peers, attending groups. denies any issues at this time. He reports sleeping well. Pt reports he would be interested in applying for [facility] services; social work aware. 11/05: Active on unit. calm, cooperative. social with select peers, attending groups. denies any issues at this time. Pt reports feeling okay ; he reports anxiety regarding placement. Continue current tx plan. 11/07/23 [facility] referral has appropriate concerns re living stuation cont abilify lamictal 11/08/23 Pt cooperative with care d/c planning working with cont d/c planning cont lamictal abilify 11/12/23 Patient increasingly despairing aware of no clear discharge plan periods needs cuing for much functioning limited social engaged needs help regarding diabetes and medication compliance reportedly had been rejected by multiple rest homes patient not threatening intermittently hopeless helpless very limited family contact at this time 11/13/23 pt flat depressed hopeless helpless unable to fx without structure 11/15 continue tx. 11/16 continue tx. 11/18/2023 Continue plan of care referral to [facility] TSH low will decrease levothyroxine 11/19/23 Pt flat dysphor ic inc hopeless helpless lamictal 150 hs dec levothyroxine 150 d/c planning cont 11/20/23 lamictal inc d/c planning dmh referral 12/02/2023 Continue Lamictal Abilify patient cooperative with care gets despairing at times regarding lack of family support problematic discharge planning in relationship to finding suitable structured place to live 12/02: Social with peers. Per nursing, pt did not sleep last night. Pt reports he did not sleeping because he wasn't tired but feel okay ; ordered Ativan 1mg PO bedtime for tonight, pt aware. 12/03: In bed sleeping, pt reports he is catching up on sleep from the night before. Calm, cooperative. T/W and hospital tray service worker, Billie, with pt to discuss possibly going to the [facility]. Pt reports he would like to call his sister and speak to her before deciding. DC Ativan. 12/04: Active on unit, social with peers. attending groups. T/W and hospital tray service worker, Billie, met with pt to discuss discharge plan. Pt reports he doesn't know if he would want to go [place] a [place]; he states he would rather live on the street because I've done it before . Pt encouraged to consider benefits of going to a [place] with the winter months coming; he agreed to doing phone intake with transition social worker on Saturday with [facility]. 12/05: Pt presents similar to yesterday. Continues to perseverate about [facility] being a [place] and not a program; He continues to agree to do phone intake on Saturday. Discussed VARGAS, pt reports he want time to consider d/t not liking needles . 12/08: Pt had phone interview with [facility], however, after multiple attempts at calling them, no one at [facility] picked up the phone to conduct interview. hospital tray service worker to get into contact with them again. Pt denies any issues at this time. 12/09: Active on unit, social with peers. Pt denies any issues at this time. Patient agreed to receiving Abilify Maintena; risks/benefits reviewed. Waiting on placement. 12/10: Patient received Abilify Maintena yesterday. He denies any side effects. Pleasant. Waiting on placement. 12/11: continue current tx plan. 12/12: similar to days prior. waiting on placement. continue current tx plan. 12/13: appearing more depressed or demoralized. notes lots of people come and go. continue current mgmt. 12/14: same as for yesterday: find me a place to live? continue current mgmt. 12/15: out and about more. otherwise stable. continue current mgmt. 12/16: continue current tx plan. 12/17: continue current tx plan. 12/18: awaiting placement. denies any issues. 12/19: Pt reports feeling alright ; Social work continues to work on placement. Pt denies any issues at this time. Pt reports sleeping well. 12/20: Continue plan of care 12/21: Continue plan of care Reason for continued inpatient stay Substantial Risk for: rapid decompensation Time Spent With Patient Time: Total time managing care of this patient today ____ minutes.
[2023-12-22 11:51] LABS: Glucose, Whole Blood 172 mg/dL (60-115)
[2023-12-22] MEDS: Insulin Lispro 100 UNIT/ML 3 ML VIAL SUBCUT ×2 (12:09→21:10)
[2023-12-22 16:44] LABS: Glucose, Whole Blood 94 mg/dL (60-115)
[2023-12-22] MEDS: metFORMIN HCl ER 500 MG TAB.ER.24H 1000 MG PO (17:21)
[2023-12-22 20:00] VITALS: BP 120/72; PULSE 90; RESP 18; TEMP 36.9; O2SAT 96
[2023-12-22 20:48] LABS: Glucose, Whole Blood 169 mg/dL (60-115)
[2023-12-22] MEDS: Insulin Glargine,Hum.rec.anlog 100 UNIT/ML 10 ML VIAL 20 UNIT SUBCUT (21:09)
[2023-12-22] MEDS: ARIPiprazole 10 MG TABLET PO (21:12)
[2023-12-22] MEDS: lamoTRIgine 100 MG TABLET 150 MG PO (21:12)
[2023-12-22] MEDS: traZODone HCL 50 MG TABLET PO ×2 (21:14→23:28)
[2023-12-23 07:25] VITALS: BP 102/64; PULSE 71; RESP 14; TEMP 36.6; O2SAT 94
[2023-12-23 07:46] LABS: Glucose, Whole Blood 91 mg/dL (60-115)
[2023-12-23] MEDS: Memantine HCl 5 MG TABLET PO ×2 (08:55→21:21)
[2023-12-23] MEDS: Levothyroxine Sodium 150 MCG TABLET PO (08:55)
[2023-12-23] MEDS: Sertraline HCL 100 MG TABLET PO (08:55)
--- NOTE | 2023-12-23 11:16 | HO.PSYCHPN ---
Subjective Subjective Date of Service: 12/23/23 Reason For Visit: paranoia cognitive impairment Subjective Notes: Conditional Voluntary Interim History: Reviewed with Dr. Gonzalez. Patient reports feeling okay ; continues to wait on placement. denies any issues at this time. Pt denies SI/HI/AH/VH. Continue current tx plan. Medication Compliance: Yes Side effects from medications: No Attending Groups: Yes Review of Systems Constitutional: Reports as per HPI Eyes: Reports as per HPI Reports as per HPI Cardiovascular: Reports as per HPI Respiratory: Reports as per HPI Gastrointestinal: Reports as per HPI Genitourinary: Reports as per HPI Musculoskeletal: Reports as per HPI Skin/Breast: Reports as per HPI Reports as per HPI Psychiatric: Reports as per HPI Endocrine: Reports as per HPI Hematologic/Lymphatic: Reports as per HPI Allergic/Immunologic: Reports as per HPI 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: Alf Impaired Diagnostics Vital Signs (24Hr): Vital Signs - 24 hr 12/22/23 20:00 12/23/23 07:25 Temperature 98.5 F 97.8 F Pulse Rate 90 71 Respiratory Rate 18 14 Blood Pressure 120/72 102/64 Pulse Oximetry 96 94 Oxygen Delivery Method Room Air Room Air BMI result Body Mass Index 32.7 Labs 09/10/23 20:00 12/19/23 08:07 Labs: Laboratory Results - last 48 hr 12/21/23 12/21/23 12/21/23 11:54 16:58 20:47 POC Glucose 102 146 H 197 H 12/22/23 12/22/23 12/22/23 07:43 11:48 16:40 POC Glucose 109 172 H 94 12/22/23 12/23/23 20:38 07:40 POC Glucose 169 H 91 Imaging Radiology Impressions: ITS Impressions Brain MRI 09/19/23 20:33 IMPRESSION: 1. No demonstrated acute intracranial abnormalities. 2. Chronic mild to moderate nonspecific white matter changes, most notably in the deep white matter of the right frontal lobe. Mild to moderate generalized cerebral volume loss. Medications Medications Current Medications Acetaminophen (Acetaminophen 325 Mg Tablet) 650 mg PO Q6H PRN PRN Reason: Headache/Pain Mild Scale (1-3) Last Admin: 12/19/23 12:03 Dose: 650 mg Al Hydroxide/Mg Hydroxide (Magnesium Hydrox/Alum Hydrox 30 Ml Oral.Susp) 30 ml PO Q6H PRN PRN Reason: Heartburn/Nausea Last Admin: 11/27/23 10:48 Dose: 30 ml Aripiprazole (Aripiprazole 10 Mg Tablet) 10 mg PO BEDTIME [facility] Last Admin: 12/22/23 21:12 Dose: 10 mg Aripiprazole (Aripiprazole Er 300 Mg Suser.Syr) 300 mg IM Q28D [facility] Last Admin: 12/10/23 17:14 Dose: 300 mg Benztropine Mesylate (Benztropine Mesylate 0.5 Mg Tablet) 0.5 mg PO TID PRN PRN Reason: Extrapyramidal Effects Glucose (Glucose Gel 15 Gm Gel..Gram.) 15 gm PO Q15M PRN; Protocol PRN Reason: per Hypoglycemia Standing Ord. Hydroxyzine HCl (Hydroxyzine Hcl 25 Mg Tablet) 25 mg PO Q6H PRN PRN Reason: Anxiety Last Admin: 12/21/23 23:37 Dose: 25 mg Dextrose (D10) 250 mls @ 750 mls/hr IV Q15M PRN; Protocol PRN Reason: per Hypoglycemia Standing Ord. Insulin Glargine (Insulin Glargine,Hum.Rec.Anlog 100 Unit/Ml 10 Ml Vial) 20 unit SUBCUT BEDTIME [facility] Last Admin: 12/22/23 21:09 Dose: 20 unit Insulin Human Lispro (Insulin Lispro 100 Unit/Ml 3 Ml Vial) 0 unit SUBCUT QIDACHS [facility]; Protocol Last Admin: 12/23/23 08:55 Dose: Not Given Lamotrigine (Lamotrigine 100 Mg Tablet) 150 mg PO BEDTIME [facility] Last Admin: 12/22/23 21:12 Dose: 150 mg Levothyroxine Sodium (Levothyroxine Sodium 150 Mcg Tablet) 150 mcg PO DAILY@0800 [facility] Last Admin: 12/23/23 08:55 Dose: 150 mcg Magnesium Hydroxide (Milk Of Magnesia 30 Ml Oral.Susp) 30 ml PO DAILY PRN PRN Reason: Constipation Memantine (Memantine Hcl 5 Mg Tablet) 5 mg PO BID [facility] Last Admin: 12/23/23 08:55 Dose: 5 mg Metformin HCl (Metformin Hcl Er 500 Mg Tab.Er.24h) 1,000 mg PO DAILY@1700 [facility] Last Admin: 12/22/23 17:21 Dose: 1,000 mg Ondansetron HCl (Ondansetron Odt 8 Mg Tab.Rapdis) 8 mg TRANSLINGU Q8H PRN PRN Reason: Nausea and Vomiting Last Admin: 12/13/23 10:51 Dose: 8 mg Sertraline HCl (Sertraline Hcl 100 Mg Tablet) 100 mg PO DAILY [facility] Last Admin: 12/23/23 08:55 Dose: 100 mg Simethicone (Simethicone 80 Mg Tab.Chew) 80 mg PO QIDWMHS PRN PRN Reason: Gas Trazodone HCl (Trazodone Hcl 50 Mg Tablet) 50 mg PO BEDTIME MRX1 PRN PRN Reason: Insomnia Last Admin: 12/22/23 23:28 Dose: 50 mg Allergies Allergies Allergy/AdvReac Type Severity Reaction Status Date / Time amoxicillin [AMOXICILLIN] Allergy Mild VOMITING/ABD Verified 09/10/23 19:44 PAIN Assessment & Plan Assessment & Plan (1) Schizoaffective disorder: Status: Acute Code(s): F25.9 - Schizoaffective disorder, unspecified (2) Hypothyroidism: Status: Acute Code(s): E03.9 - Hypothyroidism, unspecified (3) Type 2 diabetes mellitus: Status: Acute Code(s): E11.9 - Type 2 diabetes mellitus without complications (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 Plan: CV 15 minute safety checks Continue home medications: Haldol 10mg PO daily Synthroid 200mcg PO daily Obtain labs; A1C/POCs Obtain collateral from sister Obtain records from last hospitalization. MOCA Referral for DMH services if patient is agreeable. encourage medication compliance;consider VARGAS discharge planning 09/11: Elevated fasting blood sugar elevated hemoglobin A1c 9.2 med consult placed put in point of care needed will start metformin Would benefit from clarity over recent hospitalization what this were done details regarding treatment continue Haldol unclear if patient has Healthcare proxy his [place] was low slowed cognition with poor details in depth at times during blankly regarding making judgments Unclear if any of this relates to past coma or 2 hypothyroidism. He does seem more impaired than when last seen unclear when last imaging was. Continue Haldol sitter neuro indira involvement regarding diagnostic picture. Patient does remain paranoid blunted suspicious apathetic. He might benefit from longer-term placement if available and appropriate at a later time involved DMH involvement would be quite helpful 09/12: cont haldol get records ? hcp ? start antidep unclear hx 09/13: Keeping to self. More talkative today. Pt concerned he will be transferred to [facility]. Pt stated, The paper I signed yesterday. Are you going to send me back to the last hospital? That place was horrible . Pt was educated he signed a release of information with Dr. Gonzalez to obtain records from [facility]. Pt was given a copy of the release he signed. Despite this, pt continues to be anxious about being transferred. Pt denies SI/HI/VH/AH. 09/14: Keeping to self. active on unit. showered. Pt reports feeling alright today; pt reports he is worried about where I'm going to go . Pt continues concerned he will be transferred to [facility]. Pt denies SI/HI/VH/AH. 09/15:Pt reports feeling alright today; pt continues to report he is worried about where I'm going to go . Responding with brief responses. Guarded. Observed standing in one place for a long period of time. Appears confused. Pt denies SI/HI/VH/AH. T/W spoke to patient's sister, Ros, with patients verbal consent. Ros reports concerns regarding patients ability to make decisions regarding his mental and physical health. She plans on contacting legal advice on obtaining guardianship of patient. 09/16:Patient's presents similar to yesterday's presentation. Responding with brief responses. Guarded. Observed standing in one place for a long period of time, when asked what he is doing, pt stated, I don't know . Pt reports he plans on contacting his sister today and try to convince her for me to stay there . Pt denies SI/HI/VH/AH. Continue current tx plan. 09/17: brief responses. Guarded. Continues to wrist liner one place for a long period of time, when asked what he is doing, pt stated, I don't know . Pt denies SI/HI/VH/AH. T/W and Dr. Gonzalez spoke to patient's sister, Ros. Ros stated being [facility] HCP and plans on finding document. She plans on coming to the hospital on Saturday to be present for [facility] intake. 09/21: No changes 09/22:Patient flat apathetic difficult insight and judgment his sister is healthcare proxy if needed patient is accepting medical treatment Referral to [facility] 09/23:Considers starting Haldol Decanoate patient is agreeable superficially difficulty with exec fx was seen [facility] 09/24:Pt seen in f/u mood flat dysphoric difficulty engaging in conversation preoccupied with thought he wont be living with family thing slowed apathetic no clear response with namenda ? some improvement inc lamictal start low dose sertraline inc lamictal ck tsh 09/25:Start Abilify as augmentation with Haldol see if can be more stimulating regarding depressed mood apathetic limited engagement sertraline 50 mg Lamictal 25 b.i.d. referral to [facility] which would have structure unclear if patient can engage with this he remains quite depressed has delusional beliefs regarding housing and that things have been done he has repeatedly tried to reach out to his sister denies active SI needs much help dressing talking with others encouragement to eat severe thought blocking Abilify might be more stimulating than Haldol which can be more dulling 09/26:Abilify started sertraline Lamictal encouraged step-down to [facility] encourage reality orientation denies active SI 09/27: Continue current regimen and plans 09/28: Continue current regimen and plans. 09/29: Referral to [facility] increase Abilify to 5 mg daily eventually try and taper Haldol sertraline 50 mg daily 09/30:Increase Abilify to 10 mg lower Haldol to 7 mg continue sertraline and Lamictal 10/01:Abilify increased to 10 mg continue to taper Haldol sertraline 100 mg Lamictal increased to 75 mg patient apathetic withdrawn difficulty with placement some paranoia continues difficulty with decision making at times. Not physically aggressive internally preoccupied seems somewhat improved with Abilify sertraline Continue discharge planning 10/02:Patient somewhat blunted flat slowed thinking during the day times staring. Change Abilify to 10 mg at bedtime. Scheduled Haldol will lowered to 2.5 mg Continue sertraline 100 mg Namenda 5 b.i.d. 10/03:Haldol discontinued modafinil low-dose monitor for psychosis or agitation continue discharge planning 10/06: May need to firm healthcare proxy calls have been placed to sister to try to help in discharge planning. Referrals made. Patient cooperative with care 10/07:Pharmacy ordering Abilify maintain a increase modafinil 100 mg patient remains flat passive depressed some improvement noted no current paranoia noted continue discharge planning no current safe discharge plan 10/08: Increase Lamictal 100 mg Abilify Maintena 400 mg hold modafinil unclear if was overly stimulating patient continues to present internally preoccupied. 10/09:Healthcare proxy invoked discharge planning continue Lamictal Abilify pending maintain a 10/10:Healthcare proxy invoked new CV signed discharge planning. 10/11 keep same treatment 10/12 keep same treatment 10/13: Continue plan of care Lamictal Abilify discharge planning sertraline 10/14: stable. continue current mgmt. 10/15: stable. continue current mgmt. 10/16: stable presentation. continue current mgmt. 10/17: as for yesterday. 10/18: no changes. 10/19: stabel, safe. no change. 10/20: no change in presentation. calm, cooperative. active on unit, social with select peers, attending groups. Pt reports feeling alright . denies SI/HI/VH/AH. Social work waiting to hear from possible placement location. Continue current tx plan. 10/21: continue current tx plan. awaiting placement. 10/22: calm, cooperative. active on unit, social with select peers, attending groups. Pt reports feeling good ; pt stated, I'm waiting to see where I'm going . denies SI/HI/VH/AH. Showered with encouragement. 10/23: continue current tx plan. 10/24: calm, cooperative. active on unit, social with select peers, attending groups. Pt reports feeling good ; pt stated, I just want a place to live . 10/25- likely at baseline for him- CTP 10/26 CTP likely needs placement 10/27: continue current tx plan. awaiting placement. 10/28: Similar to yesterday. No change in presentation. 10/29: Pt reports feeling good ;pt stated, just waiting for a place to live . denies any issues at this time. 10/30: calm, cooperative. active on unit, social with select peers, attending groups. Pt reports feeling worried about where I am going to live . denies any issues at this time. 10/21: no change in presentation. continue current tx plan. 11/01: continue current management and treatment plan. 11/02: Continue current management and treatment plan. 11/03: Continue current management and treatment plan. 11/04: Active on unit. calm, cooperative. social with select peers, attending groups. denies any issues at this time. He reports sleeping well. Pt reports he would be interested in applying for [facility] services; social work aware. 11/05: Active on unit. calm, cooperative. social with select peers, attending groups. denies any issues at this time. Pt reports feeling okay ; he reports anxiety regarding placement. Continue current tx plan. 11/07/23 [facility] referral has appropriate concerns re living stuation cont abilify lamictal 11/08/23 Pt cooperative with care d/c planning working with cont d/c planning cont lamictal abilify 11/12/23 Patient increasingly despairing aware of no clear discharge plan periods needs cuing for much functioning limited social engaged needs help regarding diabetes and medication compliance reportedly had been rejected by multiple rest homes patient not threatening intermittently hopeless helpless very limited family contact at this time 11/13/23 pt flat depressed hopeless helpless unable to fx without structure 11/15 continue tx. 11/16 continue tx. 11/18/2023 Continue plan of care referral to [facility] TSH low will decrease levothyroxine 11/19/23 Pt flat dysphor ic inc hopeless helpless lamictal 150 hs dec levothyroxine 150 d/c planning cont 11/20/23 lamictal inc d/c planning dmh referral 12/02/2023 Continue Lamictal Abilify patient cooperative with care gets despairing at times regarding lack of family support problematic discharge planning in relationship to finding suitable structured place to live 12/02: Social with peers. Per nursing, pt did not sleep last night. Pt reports he did not sleeping because he wasn't tired but feel okay ; ordered Ativan 1mg PO bedtime for tonight, pt aware. 12/03: In bed sleeping, pt reports he is catching up on sleep from the night before. Calm, cooperative. T/W and supervisor shed workers, Billie, with pt to discuss possibly going to the [facility]. Pt reports he would like to call his sister and speak to her before deciding. DC Ativan. 12/04: Active on unit, social with peers. attending groups. T/W and supervisor shed workers, Billie, met with pt to discuss discharge plan. Pt reports he doesn't know if he would want to go to a homeless group home; he states he would rather live on the street because I've done it before . Pt encouraged to consider benefits of going to a group home with the winter months coming; he agreed to doing phone intake with professor of social work on Saturday with [facility]. 12/05: Pt presents similar to yesterday. Continues to perseverate about [facility] being a group home and not a program; He continues to agree to do phone intake on Saturday. Discussed VARGAS, pt reports he want time to consider d/t not liking needles . 12/08: Pt had phone interview with [facility], however, after multiple attempts at calling them, no one at [facility] picked up the phone to conduct interview. supervisor shed workers to get into contact with them again. Pt denies any issues at this time. 12/09: Active on unit, social with peers. Pt denies any issues at this time. Patient agreed to receiving Abilify Maintena; risks/benefits reviewed. Waiting on placement. 12/10: Patient received Abilify Maintena yesterday. He denies any side effects. Pleasant. Waiting on placement. 12/11: continue current tx plan. 12/12: similar to days prior. waiting on placement. continue current tx plan. 12/13: appearing more depressed or demoralized. notes lots of people come and go. continue current mgmt. 12/14: same as for yesterday: find me a place to live? continue current mgmt. 12/15: out and about more. otherwise stable. continue current mgmt. 12/16: continue current tx plan. 12/17: continue current tx plan. 12/18: awaiting placement. denies any issues. 12/19: Pt reports feeling alright ; Social work continues to work on placement. Pt denies any issues at this time. Pt reports sleeping well. 12/20: Continue plan of care 12/21: Continue plan of care 12/22: continue current tx plan. Reason for continued inpatient stay Substantial Risk for: other (waiting on placement.) Time Spent With Patient Time: Total time managing care of this patient today _20___ minutes.
[2023-12-23 12:02] LABS: Glucose, Whole Blood 169 mg/dL (60-115)
[2023-12-23] MEDS: Insulin Lispro 100 UNIT/ML 3 ML VIAL SUBCUT ×2 (12:17→17:08)
[2023-12-23 16:42] LABS: Glucose, Whole Blood 169 mg/dL (60-115)
[2023-12-23] MEDS: metFORMIN HCl ER 500 MG TAB.ER.24H 1000 MG PO (17:08)
[2023-12-23 20:00] VITALS: BP 127/69; PULSE 87; RESP 18; TEMP 37.2; O2SAT 95
[2023-12-23 21:17] LABS: Glucose, Whole Blood 134 mg/dL (60-115)
[2023-12-23] MEDS: lamoTRIgine 100 MG TABLET 150 MG PO (21:21)
[2023-12-23] MEDS: Insulin Glargine,Hum.rec.anlog 100 UNIT/ML 10 ML VIAL 20 UNIT SUBCUT (21:21)
[2023-12-23] MEDS: ARIPiprazole 10 MG TABLET PO (21:21)
[2023-12-23] MEDS: traZODone HCL 50 MG TABLET PO ×2 (21:21→23:01)
[2023-12-24 08:00] VITALS: BP 120/62; PULSE 82; RESP 14; TEMP 36.7; O2SAT 95
[2023-12-24 08:00] LABS: Glucose, Whole Blood 148 mg/dL (60-115)
[2023-12-24] MEDS: Levothyroxine Sodium 150 MCG TABLET PO (08:54)
[2023-12-24] MEDS: Sertraline HCL 100 MG TABLET PO (08:54)
[2023-12-24] MEDS: Memantine HCl 5 MG TABLET PO ×2 (08:54→20:37)
--- NOTE | 2023-12-24 09:23 | HO.PSYCHPN ---
Subjective Subjective Date of Service: 12/24/23 Reason For Visit: paranoia cognitive impairment Subjective Notes: Conditional Voluntary Interim History: Reviewed with Dr. Gonzalez. Patient reports feeling okay ; continues to wait on placement. denies any issues at this time. Continue current tx plan. Medication Compliance: Yes Side effects from medications: No Attending Groups: Yes Review of Systems Constitutional: Reports as per HPI Eyes: Reports as per HPI Reports as per HPI Cardiovascular: Reports as per HPI Respiratory: Reports as per HPI Gastrointestinal: Reports as per HPI Genitourinary: Reports as per HPI Musculoskeletal: Reports as per HPI Skin/Breast: Reports as per HPI Reports as per HPI Psychiatric: Reports as per HPI Endocrine: Reports as per HPI Hematologic/Lymphatic: Reports as per HPI Allergic/Immunologic: Reports as per HPI 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: Halfway Impaired Diagnostics Vital Signs (24Hr): Vital Signs - 24 hr 12/23/23 20:00 12/24/23 08:00 Temperature 99.0 F 98.0 F Pulse Rate 87 82 Respiratory Rate 18 14 Blood Pressure 127/69 120/62 Pulse Oximetry 95 95 Oxygen Delivery Method Room Air Room Air BMI result Body Mass Index 32.7 Labs 09/10/23 20:00 12/19/23 08:07 Labs: Laboratory Results - last 48 hr 12/22/23 12/22/23 12/22/23 11:48 16:40 20:38 POC Glucose 172 H 94 169 H 12/23/23 12/23/23 12/23/23 07:40 11:58 16:38 POC Glucose 91 169 H 169 H 12/23/23 12/24/23 21:11 07:55 POC Glucose 134 H 148 H Imaging Radiology Impressions: ITS Impressions Brain MRI 09/19/23 20:33 IMPRESSION: 1. No demonstrated acute intracranial abnormalities. 2. Chronic mild to moderate nonspecific white matter changes, most notably in the deep white matter of the right frontal lobe. Mild to moderate generalized cerebral volume loss. Medications Medications Current Medications Acetaminophen (Acetaminophen 325 Mg Tablet) 650 mg PO Q6H PRN PRN Reason: Headache/Pain Mild Scale (1-3) Last Admin: 12/19/23 12:03 Dose: 650 mg Al Hydroxide/Mg Hydroxide (Magnesium Hydrox/Alum Hydrox 30 Ml Oral.Susp) 30 ml PO Q6H PRN PRN Reason: Heartburn/Nausea Last Admin: 11/27/23 10:48 Dose: 30 ml Aripiprazole (Aripiprazole 10 Mg Tablet) 10 mg PO BEDTIME [facility] Last Admin: 12/23/23 21:21 Dose: 10 mg Aripiprazole (Aripiprazole Er 300 Mg Suser.Syr) 300 mg IM Q28D [facility] Last Admin: 12/10/23 17:14 Dose: 300 mg Benztropine Mesylate (Benztropine Mesylate 0.5 Mg Tablet) 0.5 mg PO TID PRN PRN Reason: Extrapyramidal Effects Glucose (Glucose Gel 15 Gm Gel..Gram.) 15 gm PO Q15M PRN; Protocol PRN Reason: per Hypoglycemia Standing Ord. Hydroxyzine HCl (Hydroxyzine Hcl 25 Mg Tablet) 25 mg PO Q6H PRN PRN Reason: Anxiety Last Admin: 12/21/23 23:37 Dose: 25 mg Dextrose (D10) 250 mls @ 750 mls/hr IV Q15M PRN; Protocol PRN Reason: per Hypoglycemia Standing Ord. Insulin Glargine (Insulin Glargine,Hum.Rec.Anlog 100 Unit/Ml 10 Ml Vial) 20 unit SUBCUT BEDTIME [facility] Last Admin: 12/23/23 21:21 Dose: 20 unit Insulin Human Lispro (Insulin Lispro 100 Unit/Ml 3 Ml Vial) 0 unit SUBCUT QIDACHS [facility]; Protocol Last Admin: 12/24/23 09:17 Dose: Not Given Lamotrigine (Lamotrigine 100 Mg Tablet) 150 mg PO BEDTIME [facility] Last Admin: 12/23/23 21:21 Dose: 150 mg Levothyroxine Sodium (Levothyroxine Sodium 150 Mcg Tablet) 150 mcg PO DAILY@0800 [facility] Last Admin: 12/24/23 08:54 Dose: 150 mcg Magnesium Hydroxide (Milk Of Magnesia 30 Ml Oral.Susp) 30 ml PO DAILY PRN PRN Reason: Constipation Memantine (Memantine Hcl 5 Mg Tablet) 5 mg PO BID [facility] Last Admin: 12/24/23 08:54 Dose: 5 mg Metformin HCl (Metformin Hcl Er 500 Mg Tab.Er.24h) 1,000 mg PO DAILY@1700 [facility] Last Admin: 12/23/23 17:08 Dose: 1,000 mg Ondansetron HCl (Ondansetron Odt 8 Mg Tab.Rapdis) 8 mg TRANSLINGU Q8H PRN PRN Reason: Nausea and Vomiting Last Admin: 12/13/23 10:51 Dose: 8 mg Sertraline HCl (Sertraline Hcl 100 Mg Tablet) 100 mg PO DAILY [facility] Last Admin: 12/24/23 08:54 Dose: 100 mg Simethicone (Simethicone 80 Mg Tab.Chew) 80 mg PO QIDWMHS PRN PRN Reason: Gas Trazodone HCl (Trazodone Hcl 50 Mg Tablet) 50 mg PO BEDTIME MRX1 PRN PRN Reason: Insomnia Last Admin: 12/23/23 23:01 Dose: 50 mg Allergies Allergies Allergy/AdvReac Type Severity Reaction Status Date / Time amoxicillin [AMOXICILLIN] Allergy Mild VOMITING/ABD Verified 09/10/23 19:44 PAIN Assessment & Plan Assessment & Plan (1) Schizoaffective disorder: Status: Acute Code(s): F25.9 - Schizoaffective disorder, unspecified (2) Hypothyroidism: Status: Acute Code(s): E03.9 - Hypothyroidism, unspecified (3) Type 2 diabetes mellitus: Status: Acute Code(s): E11.9 - Type 2 diabetes mellitus without complications (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 Plan: CV 15 minute safety checks Continue home medications: Haldol 10mg PO daily Synthroid 200mcg PO daily Obtain labs; A1C/POCs Obtain collateral from sister Obtain records from last hospitalization. MOCA Referral for [facility]H services if patient is agreeable. encourage medication compliance;consider VARGAS discharge planning 09/11: Elevated fasting blood sugar elevated hemoglobin A1c 9.2 med consult placed put in point of care needed will start metformin Would benefit from clarity over recent hospitalization what this were done details regarding treatment continue Haldol unclear if patient has Healthcare proxy his [place] was low slowed cognition with poor details in depth at times during blankly regarding making judgments Unclear if any of this relates to past coma or 2 hypothyroidism. He does seem more impaired than when last seen unclear when last imaging was. Continue Haldol sitter neuro indira involvement regarding diagnostic picture. Patient does remain paranoid blunted suspicious apathetic. He might benefit from longer-term placement if available and appropriate at a later time involved [facility] involvement would be quite helpful 09/12: cont haldol get records ? hcp ? start antidep unclear hx 09/13: Keeping to self. More talkative today. Pt concerned he will be transferred to [facility]. Pt stated, The paper I signed yesterday. Are you going to send me back to the last hospital? That place was horrible . Pt was educated he signed a release of information with Dr. Gonzalez to obtain records from [facility]. Pt was given a copy of the release he signed. Despite this, pt continues to be anxious about being transferred. Pt denies SI/HI/VH/AH. 09/14: Keeping to self. active on unit. showered. Pt reports feeling alright today; pt reports he is worried about where I'm going to go . Pt continues concerned he will be transferred to [facility]. Pt denies SI/HI/VH/AH. 09/15:Pt reports feeling alright today; pt continues to report he is worried about where I'm going to go . Responding with brief responses. Guarded. Observed standing in one place for a long period of time. Appears confused. Pt denies SI/HI/VH/AH. T/W spoke to patient's sister, Ros, with patients verbal consent. Ros reports concerns regarding patients ability to make decisions regarding his mental and physical health. She plans on contacting legal advice on obtaining guardianship of patient. 09/16:Patient's presents similar to yesterday's presentation. Responding with brief responses. Guarded. Observed standing in one place for a long period of time, when asked what he is doing, pt stated, I don't know . Pt reports he plans on contacting his sister today and try to convince her for me to stay there . Pt denies SI/HI/VH/AH. Continue current tx plan. 09/17: brief responses. Guarded. Continues to marketing information coordinator one place for a long period of time, when asked what he is doing, pt stated, I don't know . Pt denies SI/HI/VH/AH. T/W and Dr. Gonzalez spoke to patient's sister, Ros. Ros stated being [facility] HCP and plans on finding document. She plans on coming to the hospital on Saturday to be present for [facility] intake. 09/21: No changes 09/22:Patient flat apathetic difficult insight and judgment his sister is healthcare proxy if needed patient is accepting medical treatment Referral to [facility] 09/23:Considers starting Haldol Decanoate patient is agreeable superficially difficulty with exec fx was seen [facility] 09/24:Pt seen in f/u mood flat dysphoric difficulty engaging in conversation preoccupied with thought he wont be living with family thing slowed apathetic no clear response with namenda ? some improvement inc lamictal start low dose sertraline inc lamictal ck tsh 09/25:Start Abilify as augmentation with Haldol see if can be more stimulating regarding depressed mood apathetic limited engagement sertraline 50 mg Lamictal 25 b.i.d. referral to [facility] which would have structure unclear if patient can engage with this he remains quite depressed has delusional beliefs regarding housing and that things have been done he has repeatedly tried to reach out to his sister denies active SI needs much help dressing talking with others encouragement to eat severe thought blocking Abilify might be more stimulating than Haldol which can be more dulling 09/26:Abilify started sertraline Lamictal encouraged step-down to [facility] encourage reality orientation denies active SI 09/27: Continue current regimen and plans 09/28: Continue current regimen and plans. 09/29: Referral to [facility] increase Abilify to 5 mg daily eventually try and taper Haldol sertraline 50 mg daily 09/30:Increase Abilify to 10 mg lower Haldol to 7 mg continue sertraline and Lamictal 10/01:Abilify increased to 10 mg continue to taper Haldol sertraline 100 mg Lamictal increased to 75 mg patient apathetic withdrawn difficulty with placement some paranoia continues difficulty with decision making at times. Not physically aggressive internally preoccupied seems somewhat improved with Abilify sertraline Continue discharge planning 10/02:Patient somewhat blunted flat slowed thinking during the day times staring. Change Abilify to 10 mg at bedtime. Scheduled Haldol will lowered to 2.5 mg Continue sertraline 100 mg Namenda 5 b.i.d. 10/03:Haldol discontinued modafinil low-dose monitor for psychosis or agitation continue discharge planning 10/06: May need to firm healthcare proxy calls have been placed to sister to try to help in discharge planning. Referrals made. Patient cooperative with care 10/07:Pharmacy ordering Abilify maintain a increase modafinil 100 mg patient remains flat passive depressed some improvement noted no current paranoia noted continue discharge planning no current safe discharge plan 10/08: Increase Lamictal 100 mg Abilify Maintena 400 mg hold modafinil unclear if was overly stimulating patient continues to present internally preoccupied. 10/09:Healthcare proxy invoked discharge planning continue Lamictal Abilify pending maintain a 10/10:Healthcare proxy invoked new CV signed discharge planning. 10/11 keep same treatment 10/12 keep same treatment 10/13: Continue plan of care Lamictal Abilify discharge planning sertraline 10/14: stable. continue current mgmt. 10/15: stable. continue current mgmt. 10/16: stable presentation. continue current mgmt. 16: as for yesterday. 10/18: no changes. 10/19: stabel, safe. no change. 10/20: no change in presentation. calm, cooperative. active on unit, social with select peers, attending groups. Pt reports feeling alright . denies SI/HI/VH/AH. Social work waiting to hear from possible placement location. Continue current tx plan. 10/21: continue current tx plan. awaiting placement. 10/22: calm, cooperative. active on unit, social with select peers, attending groups. Pt reports feeling good ; pt stated, I'm waiting to see where I'm going . denies SI/HI/VH/AH. Showered with encouragement. 10/23: continue current tx plan. 10/24: calm, cooperative. active on unit, social with select peers, attending groups. Pt reports feeling good ; pt stated, I just want a place to live . 10/25- likely at baseline for him- CTP 10/26 CTP likely needs placement 10/27: continue current tx plan. awaiting placement. 10/28: Similar to yesterday. No change in presentation. 10/29: Pt reports feeling good ;pt stated, just waiting for a place to live . denies any issues at this time. 10/30: calm, cooperative. active on unit, social with select peers, attending groups. Pt reports feeling worried about where I am going to live . denies any issues at this time. 10/21: no change in presentation. continue current tx plan. 11/01: continue current management and treatment plan. 11/02: Continue current management and treatment plan. 11/03: Continue current management and treatment plan. 11/04: Active on unit. calm, cooperative. social with select peers, attending groups. denies any issues at this time. He reports sleeping well. Pt reports he would be interested in applying for [facility] services; social work aware. 11/05: Active on unit. calm, cooperative. social with select peers, attending groups. denies any issues at this time. Pt reports feeling okay ; he reports anxiety regarding placement. Continue current tx plan. 11/07/23 [facility] referral has appropriate concerns re living stuation cont abilify lamictal 11/08/23 Pt cooperative with care d/c planning working with cont d/c planning cont lamictal abilify 11/12/23 Patient increasingly despairing aware of no clear discharge plan periods needs cuing for much functioning limited social engaged needs help regarding diabetes and medication compliance reportedly had been rejected by multiple rest homes patient not threatening intermittently hopeless helpless very limited family contact at this time 11/13/23 pt flat depressed hopeless helpless unable to fx without structure 11/15 continue tx. 11/16 continue tx. 11/18/2023 Continue plan of care referral to [facility] TSH low will decrease levothyroxine 11/19/23 Pt flat dysphor ic inc hopeless helpless lamictal 150 hs dec levothyroxine 150 d/c planning cont 11/20/23 lamictal inc d/c planning dmh referral 12/02/2023 Continue Lamictal Abilify patient cooperative with care gets despairing at times regarding lack of family support problematic discharge planning in relationship to finding suitable structured place to live 12/02: Social with peers. Per nursing, pt did not sleep last night. Pt reports he did not sleeping because he wasn't tired but feel okay ; ordered Ativan 1mg PO bedtime for tonight, pt aware. 12/03: In bed sleeping, pt reports he is catching up on sleep from the night before. Calm, cooperative. T/W and horticultural farmworker, Billie, with pt to discuss possibly going to the [facility]. Pt reports he would like to call his sister and speak to her before deciding. DC Ativan. 12/04: Active on unit, social with peers. attending groups. T/W and horticultural farmworker, Billie, met with pt to discuss discharge plan. Pt reports he doesn't know if he would want to go to a homeless nursing home; he states he would rather live on the street because I've done it before . Pt encouraged to consider benefits of going to a nursing home with the winter months coming; he agreed to doing phone intake with social studies department chair on Saturday with [facility]. 12/05: Pt presents similar to yesterday. Continues to perseverate about [facility] being a nursing home and not a program; He continues to agree to do phone intake on Saturday. Discussed VARGAS, pt reports he want time to consider d/t not liking needles . 12/08: Pt had phone interview with [facility], however, after multiple attempts at calling them, no one at [facility] picked up the phone to conduct interview. horticultural farmworker to get into contact with them again. Pt denies any issues at this time. 12/09: Active on unit, social with peers. Pt denies any issues at this time. Patient agreed to receiving Abilify Maintena; risks/benefits reviewed. Waiting on placement. 12/10: Patient received Abilify Maintena yesterday. He denies any side effects. Pleasant. Waiting on placement. 12/11: continue current tx plan. 12/12: similar to days prior. waiting on placement. continue current tx plan. 12/13: appearing more depressed or demoralized. notes lots of people come and go. continue current mgmt. 12/14: same as for yesterday: find me a place to live? continue current mgmt. 12/15: out and about more. otherwise stable. continue current mgmt. 12/16: continue current tx plan. 12/17: continue current tx plan. 12/18: awaiting placement. denies any issues. 12/19: Pt reports feeling alright ; Social work continues to work on placement. Pt denies any issues at this time. Pt reports sleeping well. 12/20: Continue plan of care 12/21: Continue plan of care 12/22: continue current tx plan. 12/23: continue tx plan. Reason for continued inpatient stay Substantial Risk for: other Time Spent With Patient Time: Total time managing care of this patient today __20__ minutes.
[2023-12-24 12:07] LABS: Glucose, Whole Blood 125 mg/dL (60-115)
[2023-12-24] MEDS: metFORMIN HCl ER 500 MG TAB.ER.24H 1000 MG PO (16:53)
[2023-12-24 17:01] LABS: Glucose, Whole Blood 146 mg/dL (60-115)
[2023-12-24 20:00] VITALS: BP 134/74; PULSE 83; RESP 16; TEMP 36.9; O2SAT 98
[2023-12-24] MEDS: Insulin Glargine,Hum.rec.anlog 100 UNIT/ML 10 ML VIAL 20 UNIT SUBCUT (20:35)
[2023-12-24] MEDS: lamoTRIgine 100 MG TABLET 150 MG PO (20:36)
[2023-12-24] MEDS: ARIPiprazole 10 MG TABLET PO (20:37)
[2023-12-24 20:58] LABS: Glucose, Whole Blood 132 mg/dL (60-115)
[2023-12-25 08:00] VITALS: BP 119/67; PULSE 74; RESP 16; TEMP 36.9; O2SAT 97
[2023-12-25 08:08] LABS: Glucose, Whole Blood 106 mg/dL (60-115)
[2023-12-25] MEDS: Levothyroxine Sodium 150 MCG TABLET PO (09:07)
[2023-12-25] MEDS: Memantine HCl 5 MG TABLET PO ×2 (09:07→22:08)
[2023-12-25] MEDS: Sertraline HCL 100 MG TABLET PO (09:07)
--- NOTE | 2023-12-25 09:40 | P.PNPSI_ITS ---
Subjective Subjective Date of Service: 12/25/23 Reason For Visit: paranoia cognitive impairment Subjective Notes: Conditional Voluntary Interim History: Reviewed with Dr. Gonzalez. Patient reports feeling alright ; continues to wait on placement. denies any issues at this time. Pt stated, I'm just waiting for my meeting . Medication Compliance: Yes Side effects from medications: No Attending Groups: Yes Review of Systems Constitutional: Reports as per HPI Eyes: Reports as per HPI Reports as per HPI Cardiovascular: Reports as per HPI Respiratory: Reports as per HPI Gastrointestinal: Reports as per HPI Genitourinary: Reports as per HPI Musculoskeletal: Reports as per HPI Skin/Breast: Reports as per HPI Reports as per HPI Psychiatric: Reports as per HPI Endocrine: Reports as per HPI Hematologic/Lymphatic: Reports as per HPI Allergic/Immunologic: Reports as per HPI 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: Surtass Analyst Impaired Diagnostics Vital Signs (24Hr): Vital Signs - 24 hr 12/24/23 20:00 Temperature 98.4 F Pulse Rate 83 Respiratory Rate 16 Blood Pressure 134/74 Pulse Oximetry 98 Oxygen Delivery Method Room Air BMI result Body Mass Index 32.7 Labs 09/10/23 20:00 12/19/23 08:07 Labs: Laboratory Results - last 48 hr 12/23/23 12/23/23 12/23/23 11:58 16:38 21:11 POC Glucose 169 H 169 H 134 H 12/24/23 12/24/23 12/24/23 07:55 12:04 16:52 POC Glucose 148 H 125 H 146 H 12/24/23 12/25/23 20:34 08:02 POC Glucose 132 H 106 Imaging Radiology Impressions: ITS Impressions Brain MRI 09/19/23 20:33 IMPRESSION: 1. No demonstrated acute intracranial abnormalities. 2. Chronic mild to moderate nonspecific white matter changes, most notably in the deep white matter of the right frontal lobe. Mild to moderate generalized cerebral volume loss. Medications Medications Current Medications Acetaminophen (Acetaminophen 325 Mg Tablet) 650 mg PO Q6H PRN PRN Reason: Headache/Pain Mild Scale (1-3) Last Admin: 12/19/23 12:03 Dose: 650 mg Al Hydroxide/Mg Hydroxide (Magnesium Hydrox/Alum Hydrox 30 Ml Oral.Susp) 30 ml PO Q6H PRN PRN Reason: Heartburn/Nausea Last Admin: 11/27/23 10:48 Dose: 30 ml Aripiprazole (Aripiprazole 10 Mg Tablet) 10 mg PO BEDTIME [facility] Last Admin: 12/24/23 20:37 Dose: 10 mg Aripiprazole (Aripiprazole Er 300 Mg Suser.Syr) 300 mg IM Q28D [facility] Last Admin: 12/10/23 17:14 Dose: 300 mg Benztropine Mesylate (Benztropine Mesylate 0.5 Mg Tablet) 0.5 mg PO TID PRN PRN Reason: Extrapyramidal Effects Glucose (Glucose Gel 15 Gm Gel..Gram.) 15 gm PO Q15M PRN; Protocol PRN Reason: per Hypoglycemia Standing Ord. Hydroxyzine HCl (Hydroxyzine Hcl 25 Mg Tablet) 25 mg PO Q6H PRN PRN Reason: Anxiety Last Admin: 12/21/23 23:37 Dose: 25 mg Dextrose (D10) 250 mls @ 750 mls/hr IV Q15M PRN; Protocol PRN Reason: per Hypoglycemia Standing Ord. Insulin Glargine (Insulin Glargine,Hum.Rec.Anlog 100 Unit/Ml 10 Ml Vial) 20 unit SUBCUT BEDTIME [facility] Last Admin: 12/24/23 20:35 Dose: 20 unit Insulin Human Lispro (Insulin Lispro 100 Unit/Ml 3 Ml Vial) 0 unit SUBCUT QIDACHS [facility]; Protocol Last Admin: 12/25/23 09:07 Dose: Not Given Lamotrigine (Lamotrigine 100 Mg Tablet) 150 mg PO BEDTIME [facility] Last Admin: 12/24/23 20:36 Dose: 150 mg Levothyroxine Sodium (Levothyroxine Sodium 150 Mcg Tablet) 150 mcg PO DAILY@0800 [facility] Last Admin: 12/25/23 09:07 Dose: 150 mcg Magnesium Hydroxide (Milk Of Magnesia 30 Ml Oral.Susp) 30 ml PO DAILY PRN PRN Reason: Constipation Memantine (Memantine Hcl 5 Mg Tablet) 5 mg PO BID [facility] Last Admin: 12/25/23 09:07 Dose: 5 mg Metformin HCl (Metformin Hcl Er 500 Mg Tab.Er.24h) 1,000 mg PO DAILY@1700 [facility] Last Admin: 12/24/23 16:53 Dose: 1,000 mg Ondansetron HCl (Ondansetron Odt 8 Mg Tab.Rapdis) 8 mg TRANSLINGU Q8H PRN PRN Reason: Nausea and Vomiting Last Admin: 12/13/23 10:51 Dose: 8 mg Sertraline HCl (Sertraline Hcl 100 Mg Tablet) 100 mg PO DAILY [facility] Last Admin: 12/25/23 09:07 Dose: 100 mg Simethicone (Simethicone 80 Mg Tab.Chew) 80 mg PO QIDWMHS PRN PRN Reason: Gas Trazodone HCl (Trazodone Hcl 50 Mg Tablet) 50 mg PO BEDTIME MRX1 PRN PRN Reason: Insomnia Last Admin: 12/23/23 23:01 Dose: 50 mg Allergies Allergies Allergy/AdvReac Type Severity Reaction Status Date / Time amoxicillin [AMOXICILLIN] Allergy Mild VOMITING/ABD Verified 09/10/23 19:44 PAIN Assessment & Plan Assessment & Plan (1) Schizoaffective disorder: Status: Acute Code(s): F25.9 - Schizoaffective disorder, unspecified (2) Hypothyroidism: Status: Acute Code(s): E03.9 - Hypothyroidism, unspecified (3) Type 2 diabetes mellitus: Status: Acute Code(s): E11.9 - Type 2 diabetes mellitus without complications (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 Plan: CV 15 minute safety checks Continue home medications: Haldol 10mg PO daily Synthroid 200mcg PO daily Obtain labs; A1C/POCs Obtain collateral from sister Obtain records from last hospitalization. MOCA Referral for [facility] services if patient is agreeable. encourage medication compliance;consider VARGAS discharge planning 09/11: Elevated fasting blood sugar elevated hemoglobin A1c 9.2 med consult placed put in point of care needed will start metformin Would benefit from clarity over recent hospitalization what this were done details regarding treatment continue Haldol unclear if patient has Healthcare proxy his [place] was low slowed cognition with poor details in depth at times during blankly regarding making judgments Unclear if any of this relates to past coma or 2 hypothyroidism. He does seem more impaired than when last seen unclear when last imaging was. Continue Haldol sitter neuro indira involvement regarding diagnostic picture. Patient does remain paranoid blunted suspicious apathetic. He might benefit from longer- term placement if available and appropriate at a later time involved [facility] involvement would be quite helpful 09/12: cont haldol get records ? hcp ? start antidep unclear hx 09/13: Keeping to self. More talkative today. Pt concerned he will be transferred to [facility]. Pt stated, The paper I signed yesterday. Are you going to send me back to the last hospital? That place was horrible . Pt was educated he signed a release of information with Dr. Gonzalez to obtain records from [facility]. Pt was given a copy of the release he signed. Despite this, pt continues to be anxious about being transferred. Pt denies SI/HI/VH/AH. 09/14: Keeping to self. active on unit. showered. Pt reports feeling alright today; pt reports he is worried about where I'm going to go . Pt continues concerned he will be transferred to [facility]. Pt denies SI/HI/VH/AH. 09/15:Pt reports feeling alright today; pt continues to report he is worried about where I'm going to go . Responding with brief responses. Guarded. Observed standing in one place for a long period of time. Appears confused. Pt denies SI/HI/VH/AH. T/W spoke to patient's sister, Ros, with patients verbal consent. Ros reports concerns regarding patients ability to make decisions regarding his mental and physical health. She plans on contacting legal advice on obtaining guardianship of patient. 09/16:Patient's presents similar to yesterday's presentation. Responding with brief responses. Guarded. Observed standing in one place for a long period of time, when asked what he is doing, pt stated, I don't know . Pt reports he plans on contacting his sister today and try to convince her for me to stay there . Pt denies SI/HI/VH/AH. Continue current tx plan. 09/17: brief responses. Guarded. Continues to attending ambulatory care one place for a long period of time, when asked what he is doing, pt stated, I don't know . Pt denies SI/HI/VH/AH. T/W and Dr. Gonzalez spoke to patient's sister, Ros. Ros stated being [facility] HCP and plans on finding document. She plans on coming to the hospital on Saturday to be present for [facility] intake. 09/21: No changes 09/22:Patient flat apathetic difficult insight and judgment his sister is healthcare proxy if needed patient is accepting medical treatment Referral to [facility] 09/23:Considers starting Haldol Decanoate patient is agreeable superficially difficulty with exec fx was seen [facility] 09/24:Pt seen in f/u mood flat dysphoric difficulty engaging in conversation preoccupied with thought he wont be living with family thing slowed apathetic no clear response with namenda ? some improvement inc lamictal start low dose sertraline inc lamictal ck tsh 09/25:Start Abilify as augmentation with Haldol see if can be more stimulating regarding depressed mood apathetic limited engagement sertraline 50 mg Lamictal 25 b.i.d. referral to [facility] which would have structure unclear if patient can engage with this he remains quite depressed has delusional beliefs regarding housing and that things have been done he has repeatedly tried to reach out to his sister denies active SI needs much help dressing talking with others encouragement to eat severe thought blocking Abilify might be more stimulating than Haldol which can be more dulling 09/26:Abilify started sertraline Lamictal encouraged step-down to [facility] encourage reality orientation denies active SI 09/27: Continue current regimen and plans 09/28: Continue current regimen and plans. 09/29: Referral to [facility] increase Abilify to 5 mg daily eventually try and taper Haldol sertraline 50 mg daily 09/30:Increase Abilify to 10 mg lower Haldol to 7 mg continue sertraline and Lamictal 7/31:Abilify increased to 10 mg continue to taper Haldol sertraline 100 mg Lamictal increased to 75 mg patient apathetic withdrawn difficulty with placement some paranoia continues difficulty with decision making at times. Not physically aggressive internally preoccupied seems somewhat improved with Abilify sertraline Continue discharge planning 10/02:Patient somewhat blunted flat slowed thinking during the day times staring. Change Abilify to 10 mg at bedtime. Scheduled Haldol will lowered to 2.5 mg Continue sertraline 100 mg Namenda 5 b.i.d. 10/03:Haldol discontinued modafinil low-dose monitor for psychosis or agitation continue discharge planning 10/06: May need to firm healthcare proxy calls have been placed to sister to try to help in discharge planning. Referrals made. Patient cooperative with care 10/07:Pharmacy ordering Abilify maintain a increase modafinil 100 mg patient remains flat passive depressed some improvement noted no current paranoia noted continue discharge planning no current safe discharge plan 10/08: Increase Lamictal 100 mg Abilify Maintena 400 mg hold modafinil unclear if was overly stimulating patient continues to present internally preoccupied. 10/09:Healthcare proxy invoked discharge planning continue Lamictal Abilify pending maintain a 10/10:Healthcare proxy invoked new CV signed discharge planning. 10/11 keep same treatment 10/12 keep same treatment 10/13: Continue plan of care Lamictal Abilify discharge planning sertraline 10/14: stable. continue current mgmt. 10/15: stable. continue current mgmt. 10/16: stable presentation. continue current mgmt. 10/17: as for yesterday. 10/18: no changes. 10/19: stabel, safe. no change. 10/20: no change in presentation. calm, cooperative. active on unit, social with select peers, attending groups. Pt reports feeling alright . denies SI/HI/VH/AH. Social work waiting to hear from possible placement location. Continue current tx plan. 10/21: continue current tx plan. awaiting placement. 10/22: calm, cooperative. active on unit, social with select peers, attending groups. Pt reports feeling good ; pt stated, I'm waiting to see where I'm going . denies SI/HI/VH/AH. Showered with encouragement. 10/23: continue current tx plan. 10/24: calm, cooperative. active on unit, social with select peers, attending groups. Pt reports feeling good ; pt stated, I just want a place to live . 10/25- likely at baseline for him- CTP 10/26 CTP likely needs placement 10/27: continue current tx plan. awaiting placement. 10/28: Similar to yesterday. No change in presentation. 10/29: Pt reports feeling good ;pt stated, just waiting for a place to live . denies any issues at this time. 10/30: calm, cooperative. active on unit, social with select peers, attending groups. Pt reports feeling worried about where I am going to live . denies any issues at this time. 10/21: no change in presentation. continue current tx plan. 11/01: continue current management and treatment plan. 11/02: Continue current management and treatment plan. 11/03: Continue current management and treatment plan. 11/04: Active on unit. calm, cooperative. social with select peers, attending groups. denies any issues at this time. He reports sleeping well. Pt reports he would be interested in applying for [facility] services; social work aware. 11/05: Active on unit. calm, cooperative. social with select peers, attending groups. denies any issues at this time. Pt reports feeling okay ; he reports anxiety regarding placement. Continue current tx plan. 11/07/23 [facility] referral has appropriate concerns re living stuation cont abilify lamictal 11/08/23 Pt cooperative with care d/c planning working with cont d/c planning cont lamictal abilify 11/12/23 Patient increasingly despairing aware of no clear discharge plan periods needs cuing for much functioning limited social engaged needs help regarding diabetes and medication compliance reportedly had been rejected by multiple rest homes patient not threatening intermittently hopeless helpless very limited family contact at this time 11/13/23 pt flat depressed hopeless helpless unable to fx without structure 11/15 continue tx. 11/16 continue tx. 11/18/2023 Continue plan of care referral to [facility] TSH low will decrease levothyroxine 11/19/23 Pt flat dysphor ic inc hopeless helpless lamictal 150 hs dec levothyroxine 150 d/c planning cont 11/20/23 lamictal inc d/c planning dmh referral 12/02/2023 Continue Lamictal Abilify patient cooperative with care gets despairing at times regarding lack of family support problematic discharge planning in relationship to finding suitable structured place to live 12/02: Social with peers. Per nursing, pt did not sleep last night. Pt reports he did not sleeping because he wasn't tired but feel okay ; ordered Ativan 1mg PO bedtime for tonight, pt aware. 12/03: In bed sleeping, pt reports he is catching up on sleep from the night before. Calm, cooperative. T/W and pantry worker, Billie, with pt to discuss possibly going to the [facility]. Pt reports he would like to call his sister and speak to her before deciding. DC Ativan. 12/04: Active on unit, social with peers. attending groups. T/W and pantry worker, Billie, met with pt to discuss discharge plan. Pt reports he doesn't know if he would want to go to a homeless correction; he states he would rather live on the street because I've done it before . Pt encouraged to consider benefits of going to a correction with the winter months coming; he agreed to doing phone intake with social problems specialist on Saturday with [facility]. 12/05: Pt presents similar to yesterday. Continues to perseverate about [facility] being a correction and not a program; He continues to agree to do phone intake on Saturday. Discussed VARGAS, pt reports he want time to consider d/t not liking needles . 12/08: Pt had phone interview with [facility], however, after multiple attempts at calling them, no one at [facility] picked up the phone to conduct interview. pantry worker to get into contact with them again. Pt denies any issues at this time. 12/09: Active on unit, social with peers. Pt denies any issues at this time. Patient agreed to receiving Abilify Maintena; risks/benefits reviewed. Waiting on placement. 12/10: Patient received Abilify Maintena yesterday. He denies any side effects. Pleasant. Waiting on placement. 12/11: continue current tx plan. 12/12: similar to days prior. waiting on placement. continue current tx plan. 10/12: appearing more depressed or demoralized. notes lots of people come and go. continue current mgmt. 12/14: same as for yesterday: find me a place to live? continue current mgmt. 12/15: out and about more. otherwise stable. continue current mgmt. 12/16: continue current tx plan. 12/17: continue current tx plan. 12/18: awaiting placement. denies any issues. 12/19: Pt reports feeling alright ; Social work continues to work on placement. Pt denies any issues at this time. Pt reports sleeping well. 12/20: Continue plan of care 12/21: Continue plan of care 12/22: continue current tx plan. 12/23: continue tx plan. 12/24: continue tx plan. Reason for continued inpatient stay Substantial Risk for: other (waiting for placement.) Time Spent With Patient Time: Total time managing care of this patient today _20___ minutes.
[2023-12-25 12:21] LABS: Glucose, Whole Blood 120 mg/dL (60-115)
[2023-12-25 17:14] LABS: Glucose, Whole Blood 117 mg/dL (60-115)
[2023-12-25] MEDS: metFORMIN HCl ER 500 MG TAB.ER.24H 1000 MG PO (17:37)
[2023-12-25 20:00] VITALS: BP 120/68; PULSE 80; RESP 16; TEMP 37; O2SAT 98
[2023-12-25 21:20] LABS: Glucose, Whole Blood 253 mg/dL (60-115)
[2023-12-25] MEDS: Insulin Glargine,Hum.rec.anlog 100 UNIT/ML 10 ML VIAL 20 UNIT SUBCUT (22:06)
[2023-12-25] MEDS: lamoTRIgine 100 MG TABLET 150 MG PO (22:07)
[2023-12-25] MEDS: Insulin Lispro 100 UNIT/ML 3 ML VIAL SUBCUT (22:07)
[2023-12-25] MEDS: traZODone HCL 50 MG TABLET PO ×2 (22:08→22:44)
[2023-12-25] MEDS: ARIPiprazole 10 MG TABLET PO (22:08)
[2023-12-26 07:00] VITALS: BMI 32.3
[2023-12-26 07:49] VITALS: BP 138/63; PULSE 77; RESP 16; TEMP 36.8; O2SAT 95
[2023-12-26 08:14] LABS: Glucose, Whole Blood 119 mg/dL (60-115)
[2023-12-26] MEDS: Sertraline HCL 100 MG TABLET PO (08:40)
[2023-12-26] MEDS: Levothyroxine Sodium 150 MCG TABLET PO (08:40)
[2023-12-26] MEDS: Memantine HCl 5 MG TABLET PO ×2 (08:40→21:43)
--- NOTE | 2023-12-26 09:47 | P.PNPSI_ITS ---
Subjective Subjective Date of Service: 12/26/23 Reason For Visit: paranoia cognitive impairment Subjective Notes: Conditional Voluntary Interim History: Reviewed with Dr. Gonzalez. Active on unit, social with peers. Patient reports feeling alright ; continues to wait on placement. denies any issues at this time. Medication Compliance: Yes Side effects from medications: No Attending Groups: Yes Review of Systems Review of Systems unremarkable Yes all other systems are reviewed and are negative and unobtainable due to endotracheal tube Constitutional: Reports as per HPI Eyes: Reports as per HPI Reports as per HPI Cardiovascular: Reports as per HPI Respiratory: Reports as per HPI Gastrointestinal: Reports as per HPI Genitourinary: Reports as per HPI Musculoskeletal: Reports as per HPI Skin/Breast: Reports as per HPI Reports as per HPI Psychiatric: Reports as per HPI Endocrine: Reports as per HPI Hematologic/Lymphatic: Reports as per HPI Allergic/Immunologic: Reports as per HPI 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: Dental Scheduling Coordinator Impaired Diagnostics Vital Signs (24Hr): Vital Signs - 24 hr 12/25/23 20:00 12/26/23 07:49 Temperature 98.6 F 98.3 F Pulse Rate 80 77 Respiratory Rate 16 16 Blood Pressure 120/68 138/63 Pulse Oximetry 98 95 Oxygen Delivery Method Room Air Room Air BMI result Body Mass Index 32.7 Labs 09/10/23 20:00 12/19/23 08:07 Labs: Laboratory Results - last 48 hr 12/24/23 12/24/23 12/24/23 12:04 16:52 20:34 POC Glucose 125 H 146 H 132 H 12/25/23 12/25/23 12/25/23 08:02 12:18 17:09 POC Glucose 106 120 H 117 H 12/25/23 12/26/23 21:14 07:59 POC Glucose 253 H 119 H Imaging Radiology Impressions: ITS Impressions Brain MRI 09/19/23 20:33 IMPRESSION: 1. No demonstrated acute intracranial abnormalities. 2. Chronic mild to moderate nonspecific white matter changes, most notably in the deep white matter of the right frontal lobe. Mild to moderate generalized cerebral volume loss. Medications Medications Current Medications Acetaminophen (Acetaminophen 325 Mg Tablet) 650 mg PO Q6H PRN PRN Reason: Headache/Pain Mild Scale (1-3) Last Admin: 12/19/23 12:03 Dose: 650 mg Al Hydroxide/Mg Hydroxide (Magnesium Hydrox/Alum Hydrox 30 Ml Oral.Susp) 30 ml PO Q6H PRN PRN Reason: Heartburn/Nausea Last Admin: 11/27/23 10:48 Dose: 30 ml Aripiprazole (Aripiprazole 10 Mg Tablet) 10 mg PO BEDTIME [facility] Last Admin: 12/25/23 22:08 Dose: 10 mg Aripiprazole (Aripiprazole Er 300 Mg Suser.Syr) 300 mg IM Q28D [facility] Last Admin: 12/10/23 17:14 Dose: 300 mg Benztropine Mesylate (Benztropine Mesylate 0.5 Mg Tablet) 0.5 mg PO TID PRN PRN Reason: Extrapyramidal Effects Glucose (Glucose Gel 15 Gm Gel..Gram.) 15 gm PO Q15M PRN; Protocol PRN Reason: per Hypoglycemia Standing Ord. Hydroxyzine HCl (Hydroxyzine Hcl 25 Mg Tablet) 25 mg PO Q6H PRN PRN Reason: Anxiety Last Admin: 12/21/23 23:37 Dose: 25 mg Dextrose (D10) 250 mls @ 750 mls/hr IV Q15M PRN; Protocol PRN Reason: per Hypoglycemia Standing Ord. Insulin Glargine (Insulin Glargine,Hum.Rec.Anlog 100 Unit/Ml 10 Ml Vial) 20 unit SUBCUT BEDTIME [facility] Last Admin: 12/25/23 22:06 Dose: 20 unit Insulin Human Lispro (Insulin Lispro 100 Unit/Ml 3 Ml Vial) 0 unit SUBCUT QIDACHS [facility]; Protocol Last Admin: 12/26/23 08:39 Dose: Not Given Lamotrigine (Lamotrigine 100 Mg Tablet) 150 mg PO BEDTIME [facility] Last Admin: 12/25/23 22:07 Dose: 150 mg Levothyroxine Sodium (Levothyroxine Sodium 150 Mcg Tablet) 150 mcg PO DAILY@0800 [facility] Last Admin: 12/26/23 08:40 Dose: 150 mcg Magnesium Hydroxide (Milk Of Magnesia 30 Ml Oral.Susp) 30 ml PO DAILY PRN PRN Reason: Constipation Memantine (Memantine Hcl 5 Mg Tablet) 5 mg PO BID [facility] Last Admin: 12/26/23 08:40 Dose: 5 mg Metformin HCl (Metformin Hcl Er 500 Mg Tab.Er.24h) 1,000 mg PO DAILY@1700 [facility] Last Admin: 12/25/23 17:37 Dose: 1,000 mg Ondansetron HCl (Ondansetron Odt 8 Mg Tab.Rapdis) 8 mg TRANSLINGU Q8H PRN PRN Reason: Nausea and Vomiting Last Admin: 12/13/23 10:51 Dose: 8 mg Sertraline HCl (Sertraline Hcl 100 Mg Tablet) 100 mg PO DAILY [facility] Last Admin: 12/26/23 08:40 Dose: 100 mg Simethicone (Simethicone 80 Mg Tab.Chew) 80 mg PO QIDWMHS PRN PRN Reason: Gas Trazodone HCl (Trazodone Hcl 50 Mg Tablet) 50 mg PO BEDTIME MRX1 PRN PRN Reason: Insomnia Last Admin: 12/25/23 22:44 Dose: 50 mg Allergies Allergies Allergy/AdvReac Type Severity Reaction Status Date / Time amoxicillin [AMOXICILLIN] Allergy Mild VOMITING/ABD Verified 09/10/23 19:44 PAIN Assessment & Plan Assessment & Plan (1) Schizoaffective disorder: Status: Acute Code(s): F25.9 - Schizoaffective disorder, unspecified (2) Hypothyroidism: Status: Acute Code(s): E03.9 - Hypothyroidism, unspecified (3) Type 2 diabetes mellitus: Status: Acute Code(s): E11.9 - Type 2 diabetes mellitus without complications (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 Plan: CV 15 minute safety checks Continue home medications: Haldol 10mg PO daily Synthroid 200mcg PO daily Obtain labs; A1C/POCs Obtain collateral from sister Obtain records from last hospitalization. MOCA Referral for [facility]H services if patient is agreeable. encourage medication compliance;consider VARGAS discharge planning 09/11: Elevated fasting blood sugar elevated hemoglobin A1c 9.2 med consult placed put in point of care needed will start metformin Would benefit from clarity over recent hospitalization what this were done details regarding treatment continue Haldol unclear if patient has Healthcare proxy his [place] was low slowed cognition with poor details in depth at times during blankly regarding making judgments Unclear if any of this relates to past coma or 2 hypothyroidism. He does seem more impaired than when last seen unclear when last imaging was. Continue Haldol sitter neuro indira involvement regarding diagnostic picture. Patient does remain paranoid blunted suspicious apathetic. He might benefit from longer- term placement if available and appropriate at a later time involved DMH involvement would be quite helpful 09/12: cont haldol get records ? hcp ? start antidep unclear hx 09/13: Keeping to self. More talkative today. Pt concerned he will be transferred to [facility]. Pt stated, The paper I signed yesterday. Are you going to send me back to the last hospital? That place was horrible . Pt was educated he signed a release of information with Dr. Gonzalez to obtain records from [facility]. Pt was given a copy of the release he signed. Despite this, pt continues to be anxious about being transferred. Pt denies SI/HI/VH/AH. 09/14: Keeping to self. active on unit. showered. Pt reports feeling alright today; pt reports he is worried about where I'm going to go . Pt continues concerned he will be transferred to [facility]. Pt denies SI/HI/VH/AH. 09/15:Pt reports feeling alright today; pt continues to report he is worried about where I'm going to go . Responding with brief responses. Guarded. Observed standing in one place for a long period of time. Appears confused. Pt denies SI/HI/VH/AH. T/W spoke to patient's sister, Ros, with patients verbal consent. Ros reports concerns regarding patients ability to make decisions regarding his mental and physical health. She plans on contacting legal advice on obtaining guardianship of patient. 09/16:Patient's presents similar to yesterday's presentation. Responding with brief responses. Guarded. Observed standing in one place for a long period of time, when asked what he is doing, pt stated, I don't know . Pt reports he plans on contacting his sister today and try to convince her for me to stay there . Pt denies SI/HI/VH/AH. Continue current tx plan. 09/17: brief responses. Guarded. 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 Pt denies SI/HI/VH/AH. T/W and Dr. Gonzalez spoke to patient's sister, Ros. Ros stated being [place] HCP and plans on finding document. She plans on coming to the hospital on Saturday to be present for [facility] intake. 09/21: No changes 09/22:Patient flat apathetic difficult insight and judgment his sister is healthcare proxy if needed patient is accepting medical treatment Referral to [facility] 09/23:Considers starting Haldol Decanoate patient is agreeable superficially difficulty with exec fx was seen [facility] 09/24:Pt seen in f/u mood flat dysphoric difficulty engaging in conversation preoccupied with thought he wont be living with family thing slowed apathetic no clear response with namenda ? some improvement inc lamictal start low dose sertraline inc lamictal ck tsh 09/25:Start Abilify as augmentation with Haldol see if can be more stimulating regarding depressed mood apathetic limited engagement sertraline 50 mg Lamictal 25 b.i.d. referral to [facility] which would have structure unclear if patient can engage with this he remains quite depressed has delusional beliefs regarding housing and that things have been done he has repeatedly tried to reach out to his sister denies active SI needs much help dressing talking with others encouragement to eat severe thought blocking Abilify might be more stimulating than Haldol which can be more dulling 09/26:Abilify started sertraline Lamictal encouraged step-down to [facility] encourage reality orientation denies active SI 09/27: Continue current regimen and plans 09/28: Continue current regimen and plans. 09/29: Referral to [facility] increase Abilify to 5 mg daily eventually try and taper Haldol sertraline 50 mg daily 09/30:Increase Abilify to 10 mg lower Haldol to 7 mg continue sertraline and Lamictal 10/01:Abilify increased to 10 mg continue to taper Haldol sertraline 100 mg Lamictal increased to 75 mg patient apathetic withdrawn difficulty with placement some paranoia continues difficulty with decision making at times. Not physically aggressive internally preoccupied seems somewhat improved with Abilify sertraline Continue discharge planning 10/02:Patient somewhat blunted flat slowed thinking during the day times staring. Change Abilify to 10 mg at bedtime. Scheduled Haldol will lowered to 2.5 mg Continue sertraline 100 mg Namenda 5 b.i.d. 10/03:Haldol discontinued modafinil low-dose monitor for psychosis or agitation continue discharge planning 10/06: May need to firm healthcare proxy calls have been placed to sister to try to help in discharge planning. Referrals made. Patient cooperative with care 10/07:Pharmacy ordering Abilify maintain a increase modafinil 100 mg patient remains flat passive depressed some improvement noted no current paranoia noted continue discharge planning no current safe discharge plan 10/08: Increase Lamictal 100 mg Abilify Maintena 400 mg hold modafinil unclear if was overly stimulating patient continues to present internally preoccupied. 10/09:Healthcare proxy invoked discharge planning continue Lamictal Abilify pending maintain a 10/10:Healthcare proxy invoked new CV signed discharge planning. 10/11 keep same treatment 10/12 keep same treatment 10/13: Continue plan of care Lamictal Abilify discharge planning sertraline 10/14: stable. continue current mgmt. 10/15: stable. continue current mgmt. 10/16: stable presentation. continue current mgmt. 10/17: as for yesterday. 10/18: no changes. 10/19: stabel, safe. no change. 10/20: no change in presentation. calm, cooperative. active on unit, social with select peers, attending groups. Pt reports feeling alright . denies SI/HI/VH/AH. Social work waiting to hear from possible placement location. Continue current tx plan. 10/21: continue current tx plan. awaiting placement. 10/22: calm, cooperative. active on unit, social with select peers, attending groups. Pt reports feeling good ; pt stated, I'm waiting to see where I'm going . denies SI/HI/VH/AH. Showered with encouragement. 10/23: continue current tx plan. 10/24: calm, cooperative. active on unit, social with select peers, attending groups. Pt reports feeling good ; pt stated, I just want a place to live . 10/25- likely at baseline for him- CTP 10/26 CTP likely needs placement 10/27: continue current tx plan. awaiting placement. 10/28: Similar to yesterday. No change in presentation. 10/29: Pt reports feeling good ;pt stated, just waiting for a place to live . denies any issues at this time. 10/30: calm, cooperative. active on unit, social with select peers, attending groups. Pt reports feeling worried about where I am going to live . denies any issues at this time. 10/21: no change in presentation. continue current tx plan. 11/01: continue current management and treatment plan. 11/02: Continue current management and treatment plan. 11/03: Continue current management and treatment plan. 11/04: Active on unit. calm, cooperative. social with select peers, attending groups. denies any issues at this time. He reports sleeping well. Pt reports he would be interested in applying for [facility] services; social work aware. 11/05: Active on unit. calm, cooperative. social with select peers, attending groups. denies any issues at this time. Pt reports feeling okay ; he reports anxiety regarding placement. Continue current tx plan. 11/07/23 DM referral has appropriate concerns re living stuation cont abilify lamictal 11/08/23 Pt cooperative with care d/c planning working with cont d/c planning cont lamictal abilify 11/12/23 Patient increasingly despairing aware of no clear discharge plan periods needs cuing for much functioning limited social engaged needs help regarding diabetes and medication compliance reportedly had been rejected by multiple rest homes patient not threatening intermittently hopeless helpless very limited family contact at this time 11/13/23 pt flat depressed hopeless helpless unable to fx without structure 11/15 continue tx. 11/16 continue tx. 11/18/2023 Continue plan of care referral to [facility] TSH low will decrease levothyroxine 11/19/23 Pt flat dysphor ic inc hopeless helpless lamictal 150 hs dec levothyroxine 150 d/c planning cont 11/20/23 lamictal inc d/c planning [facility] referral 12/02/2023 Continue Lamictal Abilify patient cooperative with care gets despairing at times regarding lack of family support problematic discharge planning in relationship to finding suitable structured place to live 12/02: Social with peers. Per nursing, pt did not sleep last night. Pt reports he did not sleeping because he wasn't tired but feel okay ; ordered Ativan 1mg PO bedtime for tonight, pt aware. 12/03: In bed sleeping, pt reports he is catching up on sleep from the night before. Calm, cooperative. T/W and draw off worker, Billie, with pt to discuss possibly going to the [facility]. Pt reports he would like to call his sister and speak to her before deciding. DC Ativan. 12/04: Active on unit, social with peers. attending groups. T/W and draw off worker, Billie, met with pt to discuss discharge plan. Pt reports he doesn't know if he would want to go to a homeless intermediate; he states he would rather live on the street because I've done it before . Pt encouraged to consider benefits of going to a intermediate with the winter months coming; he agreed to doing phone intake with bilingual social worker on Saturday with [facility]. 12/05: Pt presents similar to yesterday. Continues to perseverate about [facility] being a intermediate and not a program; He continues to agree to do phone intake on Saturday. Discussed VARGAS, pt reports he want time to consider d/t not liking needles . 12/08: Pt had phone interview with [facility], however, after multiple attempts at calling them, no one at [facility] picked up the phone to conduct interview. draw off worker to get into contact with them again. Pt denies any issues at this time. 12/09: Active on unit, social with peers. Pt denies any issues at this time. Patient agreed to receiving Abilify Maintena; risks/benefits reviewed. Waiting on placement. 12/10: Patient received Abilify Maintena yesterday. He denies any side effects. Pleasant. Waiting on placement. 12/11: continue current tx plan. 12/12: similar to days prior. waiting on placement. continue current tx plan. 12/13: appearing more depressed or demoralized. notes lots of people come and go. continue current mgmt. 12/14: same as for yesterday: find me a place to live? continue current mgmt. 12/15: out and about more. otherwise stable. continue current mgmt. 12/16: continue current tx plan. 12/17: continue current tx plan. 12/18: awaiting placement. denies any issues. 12/19: Pt reports feeling alright ; Social work continues to work on placement. Pt denies any issues at this time. Pt reports sleeping well. 12/20: Continue plan of care 12/21: Continue plan of care 12/22: continue current tx plan. 12/23: continue tx plan. 12/24: continue tx plan. 12/25: similar to days prior. waiting on placement. Reason for continued inpatient stay Substantial Risk for: other (waiting on placement) Time Spent With Patient Time: Total time managing care of this patient today _20___ minutes.
[2023-12-26 11:45] LABS: Glucose, Whole Blood 234 mg/dL (60-115)
[2023-12-26] MEDS: Insulin Lispro 100 UNIT/ML 3 ML VIAL SUBCUT ×2 (12:09→16:56)
[2023-12-26 16:50] LABS: Glucose, Whole Blood 180 mg/dL (60-115)
[2023-12-26] MEDS: metFORMIN HCl ER 500 MG TAB.ER.24H 1000 MG PO (16:56)
[2023-12-26 20:00] VITALS: BP 125/76; PULSE 82; RESP 18; TEMP 36.9; O2SAT 96
[2023-12-26 21:29] LABS: Glucose, Whole Blood 116 mg/dL (60-115)
[2023-12-26] MEDS: Insulin Glargine,Hum.rec.anlog 100 UNIT/ML 10 ML VIAL 20 UNIT SUBCUT (21:42)
[2023-12-26] MEDS: ARIPiprazole 10 MG TABLET PO (21:43)
[2023-12-26] MEDS: lamoTRIgine 100 MG TABLET 150 MG PO (21:43)
[2023-12-26] MEDS: traZODone HCL 50 MG TABLET PO ×2 (21:43→23:32)
[2023-12-27 07:52] VITALS: BP 116/70; PULSE 67; RESP 16; TEMP 36.5; O2SAT 98
[2023-12-27 07:56] LABS: Glucose, Whole Blood 109 mg/dL (60-115)
[2023-12-27] MEDS: Sertraline HCL 100 MG TABLET PO (08:22)
[2023-12-27] MEDS: Levothyroxine Sodium 150 MCG TABLET PO (08:22)
[2023-12-27] MEDS: Memantine HCl 5 MG TABLET PO ×2 (08:22→21:43)
--- NOTE | 2023-12-27 09:20 | HO.PSYCHPN ---
Subjective Subjective Date of Service: 12/27/23 Reason For Visit: paranoia cognitive impairment Subjective Notes: Conditional Voluntary Interim History: Reviewed with Dr. Gonzalez. Active on unit, social with peers. Patient reports feeling good ; pt stated, I'm waiting for somewhere to go . continues to wait on placement. denies any issues at this time. Medication Compliance: Yes Side effects from medications: No Attending Groups: Yes Review of Systems Constitutional: Reports as per HPI Eyes: Reports as per HPI Reports as per HPI Cardiovascular: Reports as per HPI Respiratory: Reports as per HPI Gastrointestinal: Reports as per HPI Genitourinary: Reports as per HPI Musculoskeletal: Reports as per HPI Skin/Breast: Reports as per HPI Reports as per HPI Psychiatric: Reports as per HPI Endocrine: Reports as per HPI Hematologic/Lymphatic: Reports as per HPI Allergic/Immunologic: Reports as per HPI 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 Diagnostics Vital Signs (24Hr): Vital Signs - 24 hr 12/26/23 20:00 12/27/23 07:52 Temperature 98.5 F 97.7 F Pulse Rate 82 67 Respiratory Rate 18 16 Blood Pressure 125/76 116/70 Pulse Oximetry 96 98 Oxygen Delivery Method Room Air Room Air BMI result Body Mass Index 32.3 Labs 09/10/23 20:00 12/19/23 08:07 Labs: Laboratory Results - last 48 hr 12/25/23 12/25/23 12/25/23 12:18 17:09 21:14 POC Glucose 120 H 117 H 253 H 12/26/23 12/26/23 12/26/23 07:59 11:40 16:47 POC Glucose 119 H 234 H 180 H 12/26/23 12/27/23 21:23 07:46 POC Glucose 116 H 109 Imaging Radiology Impressions: ITS Impressions Brain MRI 09/19/23 20:33 IMPRESSION: 1. No demonstrated acute intracranial abnormalities. 2. Chronic mild to moderate nonspecific white matter changes, most notably in the deep white matter of the right frontal lobe. Mild to moderate generalized cerebral volume loss. Medications Medications Current Medications Acetaminophen (Acetaminophen 325 Mg Tablet) 650 mg PO Q6H PRN PRN Reason: Headache/Pain Mild Scale (1-3) Last Admin: 12/19/23 12:03 Dose: 650 mg Al Hydroxide/Mg Hydroxide (Magnesium Hydrox/Alum Hydrox 30 Ml Oral.Susp) 30 ml PO Q6H PRN PRN Reason: Heartburn/Nausea Last Admin: 11/27/23 10:48 Dose: 30 ml Aripiprazole (Aripiprazole 10 Mg Tablet) 10 mg PO BEDTIME [facility] Last Admin: 12/26/23 21:43 Dose: 10 mg Aripiprazole (Aripiprazole Er 300 Mg Suser.Syr) 300 mg IM Q28D [facility] Last Admin: 12/10/23 17:14 Dose: 300 mg Benztropine Mesylate (Benztropine Mesylate 0.5 Mg Tablet) 0.5 mg PO TID PRN PRN Reason: Extrapyramidal Effects Glucose (Glucose Gel 15 Gm Gel..Gram.) 15 gm PO Q15M PRN; Protocol PRN Reason: per Hypoglycemia Standing Ord. Hydroxyzine HCl (Hydroxyzine Hcl 25 Mg Tablet) 25 mg PO Q6H PRN PRN Reason: Anxiety Last Admin: 12/21/23 23:37 Dose: 25 mg Dextrose (D10) 250 mls @ 750 mls/hr IV Q15M PRN; Protocol PRN Reason: per Hypoglycemia Standing Ord. Insulin Glargine (Insulin Glargine,Hum.Rec.Anlog 100 Unit/Ml 10 Ml Vial) 20 unit SUBCUT BEDTIME [facility] Last Admin: 12/26/23 21:42 Dose: 20 unit Insulin Human Lispro (Insulin Lispro 100 Unit/Ml 3 Ml Vial) 0 unit SUBCUT QIDACHS [facility]; Protocol Last Admin: 12/27/23 08:37 Dose: Not Given Lamotrigine (Lamotrigine 100 Mg Tablet) 150 mg PO BEDTIME [facility] Last Admin: 12/26/23 21:43 Dose: 150 mg Levothyroxine Sodium (Levothyroxine Sodium 150 Mcg Tablet) 150 mcg PO DAILY@0800 [facility] Last Admin: 12/27/23 08:22 Dose: 150 mcg Magnesium Hydroxide (Milk Of Magnesia 30 Ml Oral.Susp) 30 ml PO DAILY PRN PRN Reason: Constipation Memantine (Memantine Hcl 5 Mg Tablet) 5 mg PO BID [facility] Last Admin: 12/27/23 08:22 Dose: 5 mg Metformin HCl (Metformin Hcl Er 500 Mg Tab.Er.24h) 1,000 mg PO DAILY@1700 [facility] Last Admin: 12/26/23 16:56 Dose: 1,000 mg Ondansetron HCl (Ondansetron Odt 8 Mg Tab.Rapdis) 8 mg TRANSLINGU Q8H PRN PRN Reason: Nausea and Vomiting Last Admin: 12/13/23 10:51 Dose: 8 mg Sertraline HCl (Sertraline Hcl 100 Mg Tablet) 100 mg PO DAILY [facility] Last Admin: 12/27/23 08:22 Dose: 100 mg Simethicone (Simethicone 80 Mg Tab.Chew) 80 mg PO QIDWMHS PRN PRN Reason: Gas Trazodone HCl (Trazodone Hcl 50 Mg Tablet) 50 mg PO BEDTIME MRX1 PRN PRN Reason: Insomnia Last Admin: 12/26/23 23:32 Dose: 50 mg Allergies Allergies Allergy/AdvReac Type Severity Reaction Status Date / Time amoxicillin [AMOXICILLIN] Allergy Mild VOMITING/ABD Verified 09/10/23 19:44 PAIN Assessment & Plan Assessment & Plan (1) Schizoaffective disorder: Status: Acute Code(s): F25.9 - Schizoaffective disorder, unspecified (2) Hypothyroidism: Status: Acute Code(s): E03.9 - Hypothyroidism, unspecified (3) Type 2 diabetes mellitus: Status: Acute Code(s): E11.9 - Type 2 diabetes mellitus without complications (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 Plan: CV 15 minute safety checks Continue home medications: Haldol 10mg PO daily Synthroid 200mcg PO daily Obtain labs; A1C/POCs Obtain collateral from sister Obtain records from last hospitalization. MOCA Referral for [facility] services if patient is agreeable. encourage medication compliance;consider VARGAS discharge planning 09/11: Elevated fasting blood sugar elevated hemoglobin A1c 9.2 med consult placed put in point of care needed will start metformin Would benefit from clarity over recent hospitalization what this were done details regarding treatment continue Haldol unclear if patient has Healthcare proxy his [place] was low slowed cognition with poor details in depth at times during blankly regarding making judgments Unclear if any of this relates to past coma or 2 hypothyroidism. He does seem more impaired than when last seen unclear when last imaging was. Continue Haldol sitter neuro indira involvement regarding diagnostic picture. Patient does remain paranoid blunted suspicious apathetic. He might benefit from longer-term placement if available and appropriate at a later time involved [facility] involvement would be quite helpful 09/12: cont haldol get records ? hcp ? start antidep unclear hx 09/13: Keeping to self. More talkative today. Pt concerned he will be transferred to [facility]. Pt stated, The paper I signed yesterday. Are you going to send me back to the last hospital? That place was horrible . Pt was educated he signed a release of information with Dr. Gonzalez to obtain records from [facility]. Pt was given a copy of the release he signed. Despite this, pt continues to be anxious about being transferred. Pt denies SI/HI/VH/AH. 09/14: Keeping to self. active on unit. showered. Pt reports feeling alright today; pt reports he is worried about where I'm going to go . Pt continues concerned he will be transferred to [facility]. Pt denies SI/HI/VH/AH. 09/15:Pt reports feeling alright today; pt continues to report he is worried about where I'm going to go . Responding with brief responses. Guarded. Observed standing in one place for a long period of time. Appears confused. Pt denies SI/HI/VH/AH. T/W spoke to patient's sister, Ros, with patients verbal consent. Ros reports concerns regarding patients ability to make decisions regarding his mental and physical health. She plans on contacting legal advice on obtaining guardianship of patient. 09/16:Patient's presents similar to yesterday's presentation. Responding with brief responses. Guarded. Observed standing in one place for a long period of time, when asked what he is doing, pt stated, I don't know . Pt reports he plans on contacting his sister today and try to convince her for me to stay there . Pt denies SI/HI/VH/AH. Continue current tx plan. 09/17: brief responses. Guarded. 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 Pt denies SI/HI/VH/AH. T/W and Dr. Gonzalez spoke to patient's sister, Ros. Ros stated being [facility] H[facility] and plans on finding document. She plans on coming to the hospital on Saturday to be present for [facility] intake. 09/21: No changes 09/22:Patient flat apathetic difficult insight and judgment his sister is healthcare proxy if needed patient is accepting medical treatment Referral to [facility] 09/23:Considers starting Haldol Decanoate patient is agreeable superficially difficulty with exec fx was seen [facility] 09/24:Pt seen in f/u mood flat dysphoric difficulty engaging in conversation preoccupied with thought he wont be living with family thing slowed apathetic no clear response with namenda ? some improvement inc lamictal start low dose sertraline inc lamictal ck tsh 09/25:Start Abilify as augmentation with Haldol see if can be more stimulating regarding depressed mood apathetic limited engagement sertraline 50 mg Lamictal 25 b.i.d. referral to [facility] which would have structure unclear if patient can engage with this he remains quite depressed has delusional beliefs regarding housing and that things have been done he has repeatedly tried to reach out to his sister denies active SI needs much help dressing talking with others encouragement to eat severe thought blocking Abilify might be more stimulating than Haldol which can be more dulling 09/26:Abilify started sertraline Lamictal encouraged step-down to [facility] encourage reality orientation denies active SI 09/27: Continue current regimen and plans 09/28: Continue current regimen and plans. 09/29: Referral to [facility] increase Abilify to 5 mg daily eventually try and taper Haldol sertraline 50 mg daily 09/30:Increase Abilify to 10 mg lower Haldol to 7 mg continue sertraline and Lamictal 10/01:Abilify increased to 10 mg continue to taper Haldol sertraline 100 mg Lamictal increased to 75 mg patient apathetic withdrawn difficulty with placement some paranoia continues difficulty with decision making at times. Not physically aggressive internally preoccupied seems somewhat improved with Abilify sertraline Continue discharge planning 10/02:Patient somewhat blunted flat slowed thinking during the day times staring. Change Abilify to 10 mg at bedtime. Scheduled Haldol will lowered to 2.5 mg Continue sertraline 100 mg Namenda 5 b.i.d. 10/03:Haldol discontinued modafinil low-dose monitor for psychosis or agitation continue discharge planning 10/06: May need to firm healthcare proxy calls have been placed to sister to try to help in discharge planning. Referrals made. Patient cooperative with care 10/07:Pharmacy ordering Abilify maintain a increase modafinil 100 mg patient remains flat passive depressed some improvement noted no current paranoia noted continue discharge planning no current safe discharge plan 10/08: Increase Lamictal 100 mg Abilify Maintena 400 mg hold modafinil unclear if was overly stimulating patient continues to present internally preoccupied. 10/09:Healthcare proxy invoked discharge planning continue Lamictal Abilify pending maintain a 10/10:Healthcare proxy invoked new CV signed discharge planning. 10/11 keep same treatment 10/12 keep same treatment 10/13: Continue plan of care Lamictal Abilify discharge planning sertraline 10/14: stable. continue current mgmt. 10/15: stable. continue current mgmt. 10/16: stable presentation. continue current mgmt. 10/17: as for yesterday. 10/18: no changes. 10/19: stabel, safe. no change. 10/20: no change in presentation. calm, cooperative. active on unit, social with select peers, attending groups. Pt reports feeling alright . denies SI/HI/VH/AH. Social work waiting to hear from possible placement location. Continue current tx plan. 10/21: continue current tx plan. awaiting placement. 10/22: calm, cooperative. active on unit, social with select peers, attending groups. Pt reports feeling good ; pt stated, I'm waiting to see where I'm going . denies SI/HI/VH/AH. Showered with encouragement. 10/23: continue current tx plan. 10/24: calm, cooperative. active on unit, social with select peers, attending groups. Pt reports feeling good ; pt stated, I just want a place to live . 10/25- likely at baseline for him- CTP 10/26 CTP likely needs placement 10/27: continue current tx plan. awaiting placement. 10/28: Similar to yesterday. No change in presentation. 10/29: Pt reports feeling good ;pt stated, just waiting for a place to live . denies any issues at this time. 10/30: calm, cooperative. active on unit, social with select peers, attending groups. Pt reports feeling worried about where I am going to live . denies any issues at this time. 10/21: no change in presentation. continue current tx plan. 11/01: continue current management and treatment plan. 11/02: Continue current management and treatment plan. 11/03: Continue current management and treatment plan. 11/04: Active on unit. calm, cooperative. social with select peers, attending groups. denies any issues at this time. He reports sleeping well. Pt reports he would be interested in applying for [facility] services; social work aware. 11/05: Active on unit. calm, cooperative. social with select peers, attending groups. denies any issues at this time. Pt reports feeling okay ; he reports anxiety regarding placement. Continue current tx plan. 11/07/23 [facility] referral has appropriate concerns re living stuation cont abilify lamictal 11/08/23 Pt cooperative with care d/c planning working with cont d/c planning cont lamictal abilify 11/12/23 Patient increasingly despairing aware of no clear discharge plan periods needs cuing for much functioning limited social engaged needs help regarding diabetes and medication compliance reportedly had been rejected by multiple rest homes patient not threatening intermittently hopeless helpless very limited family contact at this time 11/13/23 pt flat depressed hopeless helpless unable to fx without structure 11/15 continue tx. 11/16 continue tx. 11/18/2023 Continue plan of care referral to [facility] TSH low will decrease levothyroxine 11/19/23 Pt flat dysphor ic inc hopeless helpless lamictal 150 hs dec levothyroxine 150 d/c planning cont 11/20/23 lamictal inc d/c planning dmh referral 12/02/2023 Continue Lamictal Abilify patient cooperative with care gets despairing at times regarding lack of family support problematic discharge planning in relationship to finding suitable structured place to live 12/02: Social with peers. Per nursing, pt did not sleep last night. Pt reports he did not sleeping because he wasn't tired but feel okay ; ordered Ativan 1mg PO bedtime for tonight, pt aware. 12/03: In bed sleeping, pt reports he is catching up on sleep from the night before. Calm, cooperative. T/W and welfare case worker, Billie, with pt to discuss possibly going to the [facility]. Pt reports he would like to call his sister and speak to her before deciding. DC Ativan. 12/04: Active on unit, social with peers. attending groups. T/W and welfare case worker, Billie, met with pt to discuss discharge plan. Pt reports he doesn't know if he would want to go to a homeless half-way; he states he would rather live on the street because I've done it before . Pt encouraged to consider benefits of going to a half-way with the winter months coming; he agreed to doing phone intake with director social welfare on Saturday with [facility]. 12/05: Pt presents similar to yesterday. Continues to perseverate about [facility] being a half-way and not a program; He continues to agree to do phone intake on Saturday. Discussed VARGAS, pt reports he want time to consider d/t not liking needles . 12/08: Pt had phone interview with [facility], however, after multiple attempts at calling them, no one at [facility] picked up the phone to conduct interview. welfare case worker to get into contact with them again. Pt denies any issues at this time. 12/09: Active on unit, social with peers. Pt denies any issues at this time. Patient agreed to receiving Abilify Maintena; risks/benefits reviewed. Waiting on placement. 12/10: Patient received Abilify Maintena yesterday. He denies any side effects. Pleasant. Waiting on placement. 10/10: continue current tx plan. 12/12: similar to days prior. waiting on placement. continue current tx plan. 12/13: appearing more depressed or demoralized. notes lots of people come and go. continue current mgmt. 12/14: same as for yesterday: find me a place to live? continue current mgmt. 12/15: out and about more. otherwise stable. continue current mgmt. 12/16: continue current tx plan. 12/17: continue current tx plan. 12/18: awaiting placement. denies any issues. 12/19: Pt reports feeling alright ; Social work continues to work on placement. Pt denies any issues at this time. Pt reports sleeping well. 12/20: Continue plan of care 12/21: Continue plan of care 12/22: continue current tx plan. 12/23: continue tx plan. 12/24: continue tx plan. 12/25: similar to days prior. waiting on placement. 12/26: Continue current tx plan. Reason for continued inpatient stay Substantial Risk for: other Time Spent With Patient Time: Total time managing care of this patient today _20___ minutes.
[2023-12-27 12:10] LABS: Glucose, Whole Blood 363 mg/dL (60-115)
[2023-12-27] MEDS: Insulin Lispro 100 UNIT/ML 3 ML VIAL SUBCUT ×3 (12:14→21:42)
[2023-12-27 16:50] LABS: Glucose, Whole Blood 221 mg/dL (60-115)
[2023-12-27] MEDS: metFORMIN HCl ER 500 MG TAB.ER.24H 1000 MG PO (16:54)
[2023-12-27 20:00] VITALS: BP 120/67; PULSE 76; RESP 16; TEMP 37.2; O2SAT 96
[2023-12-27 21:35] LABS: Glucose, Whole Blood 218 mg/dL (60-115)
[2023-12-27] MEDS: Insulin Glargine,Hum.rec.anlog 100 UNIT/ML 10 ML VIAL 20 UNIT SUBCUT (21:43)
[2023-12-27] MEDS: lamoTRIgine 100 MG TABLET 150 MG PO (21:43)
[2023-12-27] MEDS: ARIPiprazole 10 MG TABLET PO (21:43)
[2023-12-27] MEDS: traZODone HCL 50 MG TABLET PO ×2 (21:43→23:42)
[2023-12-28 07:44] VITALS: BP 120/70; PULSE 74; RESP 14; TEMP 36.6; O2SAT 97
[2023-12-28 07:54] LABS: Glucose, Whole Blood 128 mg/dL (60-115)
[2023-12-28] MEDS: Memantine HCl 5 MG TABLET PO ×2 (08:38→21:51)
[2023-12-28] MEDS: Sertraline HCL 100 MG TABLET PO (08:38)
[2023-12-28] MEDS: Levothyroxine Sodium 150 MCG TABLET PO (08:38)
[2023-12-28 11:02] LABS: Estimated Glomerular Filt Rate > 60
--- NOTE | 2023-12-28 11:07 | P.PNPSI_ITS ---
Subjective Subjective Date of Service: 12/28/23 Reason For Visit: paranoia cognitive impairment Interim History: Active on unit, social with peers. Patient reports feeling good ; Continues to wait on placement. denies any issues at this time. Review of Systems Review of Systems unremarkable Yes all other systems are reviewed and are negative and unobtainable due to endotracheal tube Constitutional: Reports as per HPI Eyes: Reports as per HPI Reports as per HPI Cardiovascular: Reports as per HPI Respiratory: Reports as per HPI Gastrointestinal: Reports as per HPI Genitourinary: Reports as per HPI Musculoskeletal: Reports as per HPI Skin/Breast: Reports as per HPI Reports as per HPI Psychiatric: Reports as per HPI Endocrine: Reports as per HPI Hematologic/Lymphatic: Reports as per HPI Allergic/Immunologic: Reports as per HPI Mental Status Exam Mental Status Exam Narrative: The patient is dysphoric sad looking blunted poverty of content limited engagement slowed mentation. slowed mentation continues difficulty with discharge planning suspiciousness at signing releases At times some level of suspiciousness no overt aggression or marked paranoia difficulty at times understanding difficulty at times changing sets. Poverty of content no SI HI actively difficulty with decision-making impaired insight judgment Patient Appearance: Disheveled Patient Orientation: Person, Place and Situation Level of Consciousness: Awake Patient Behavior: Appropriate and Cooperative Mood Description: Calm and Blunted Affect Description: Blunted Patient Cognition Impaired: Yes Ability to Follow Directions: Fair Speech Pattern: Clear and Soft-Spoken 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: Correction Impaired Diagnostics Vital Signs (24Hr): Vital Signs - 24 hr 12/27/23 20:00 12/28/23 07:44 Temperature 99.0 F 97.8 F Pulse Rate 76 74 Respiratory Rate 16 14 Blood Pressure 120/67 120/70 Pulse Oximetry 96 97 Oxygen Delivery Method Room Air Room Air BMI result Body Mass Index 32.3 Labs 09/10/23 20:00 12/28/23 09:57 Labs: Laboratory Results - last 48 hr 12/26/23 12/26/23 12/26/23 11:40 16:47 21:23 Creatinine Estim Creat Clear Calc Estimated GFR POC Glucose 234 H 180 H 116 H 12/27/23 12/27/23 12/27/23 07:46 12:05 16:45 Creatinine Estim Creat Clear Calc Estimated GFR POC Glucose 109 363 H* 221 H 12/27/23 12/28/23 12/28/23 21:25 07:43 09:57 Creatinine 1.02 Estim Creat Clear Calc 91.0 Estimated GFR > 60 POC Glucose 218 H 128 H Imaging Radiology Impressions: ITS Impressions Brain MRI 09/19/23 20:33 IMPRESSION: 1. No demonstrated acute intracranial abnormalities. 2. Chronic mild to moderate nonspecific white matter changes, most notably in the deep white matter of the right frontal lobe. Mild to moderate generalized cerebral volume loss. Medications Medications Current Medications Acetaminophen (Acetaminophen 325 Mg Tablet) 650 mg PO Q6H PRN PRN Reason: Headache/Pain Mild Scale (1-3) Last Admin: 12/19/23 12:03 Dose: 650 mg Al Hydroxide/Mg Hydroxide (Magnesium Hydrox/Alum Hydrox 30 Ml Oral.Susp) 30 ml PO Q6H PRN PRN Reason: Heartburn/Nausea Last Admin: 11/27/23 10:48 Dose: 30 ml Aripiprazole (Aripiprazole 10 Mg Tablet) 10 mg PO BEDTIME MANAS Last Admin: 12/27/23 21:43 Dose: 10 mg Aripiprazole (Aripiprazole Er 300 Mg Suser.Syr) 300 mg IM Q28D MANAS Last Admin: 12/10/23 17:14 Dose: 300 mg Benztropine Mesylate (Benztropine Mesylate 0.5 Mg Tablet) 0.5 mg PO TID PRN PRN Reason: Extrapyramidal Effects Glucose (Glucose Gel 15 Gm Gel..Gram.) 15 gm PO Q15M PRN; Protocol PRN Reason: per Hypoglycemia Standing Ord. Hydroxyzine HCl (Hydroxyzine Hcl 25 Mg Tablet) 25 mg PO Q6H PRN PRN Reason: Anxiety Last Admin: 12/21/23 23:37 Dose: 25 mg Dextrose (D10) 250 mls @ 750 mls/hr IV Q15M PRN; Protocol PRN Reason: per Hypoglycemia Standing Ord. Insulin Glargine (Insulin Glargine,Hum.Rec.Anlog 100 Unit/Ml 10 Ml Vial) 20 unit SUBCUT BEDTIME MANAS Last Admin: 12/27/23 21:43 Dose: 20 unit Insulin Human Lispro (Insulin Lispro 100 Unit/Ml 3 Ml Vial) 0 unit SUBCUT QIDACHS MANAS; Protocol Last Admin: 12/28/23 08:38 Dose: Not Given Lamotrigine (Lamotrigine 100 Mg Tablet) 150 mg PO BEDTIME MANAS Last Admin: 12/27/23 21:43 Dose: 150 mg Levothyroxine Sodium (Levothyroxine Sodium 150 Mcg Tablet) 150 mcg PO DAILY@0800 [facility] Last Admin: 12/28/23 08:38 Dose: 150 mcg Magnesium Hydroxide (Milk Of Magnesia 30 Ml Oral.Susp) 30 ml PO DAILY PRN PRN Reason: Constipation Memantine (Memantine Hcl 5 Mg Tablet) 5 mg PO BID [facility] Last Admin: 12/28/23 08:38 Dose: 5 mg Metformin HCl (Metformin Hcl Er 500 Mg Tab.Er.24h) 1,000 mg PO DAILY@1700 [facility] Last Admin: 12/27/23 16:54 Dose: 1,000 mg Ondansetron HCl (Ondansetron Odt 8 Mg Tab.Rapdis) 8 mg TRANSLINGU Q8H PRN PRN Reason: Nausea and Vomiting Last Admin: 12/13/23 10:51 Dose: 8 mg Sertraline HCl (Sertraline Hcl 100 Mg Tablet) 100 mg PO DAILY [facility] Last Admin: 12/28/23 08:38 Dose: 100 mg Simethicone (Simethicone 80 Mg Tab.Chew) 80 mg PO QIDWMHS PRN PRN Reason: Gas Trazodone HCl (Trazodone Hcl 50 Mg Tablet) 50 mg PO BEDTIME MRX1 PRN PRN Reason: Insomnia Last Admin: 12/27/23 23:42 Dose: 50 mg Allergies Allergies Allergy/AdvReac Type Severity Reaction Status Date / Time amoxicillin [AMOXICILLIN] Allergy Mild VOMITING/ABD Verified 09/10/23 19:44 PAIN Assessment & Plan Assessment & Plan (1) Schizoaffective disorder: Status: Acute Code(s): F25.9 - Schizoaffective disorder, unspecified (2) Hypothyroidism: Status: Acute Code(s): E03.9 - Hypothyroidism, unspecified (3) Type 2 diabetes mellitus: Status: Acute Code(s): E11.9 - Type 2 diabetes mellitus without complications (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 Plan: CV 15 minute safety checks Continue home medications: Haldol 10mg PO daily Synthroid 200mcg PO daily Obtain labs; A1C/POCs Obtain collateral from sister Obtain records from last hospitalization. MOCA Referral for DMH services if patient is agreeable. encourage medication compliance;consider VARGAS discharge planning 09/11: Elevated fasting blood sugar elevated hemoglobin A1c 9.2 med consult placed put in point of care needed will start metformin Would benefit from clarity over recent hospitalization what this were done details regarding treatment continue Haldol unclear if patient has Healthcare proxy his [place] was low slowed cognition with poor details in depth at times during blankly regarding making judgments Unclear if any of this relates to past coma or 2 hypothyroidism. He does seem more impaired than when last seen unclear when last imaging was. Continue Haldol sitter neuro indira involvement regarding diagnostic picture. Patient does remain paranoid blunted suspicious apathetic. He might benefit from longer- term placement if available and appropriate at a later time involved DMH involvement would be quite helpful 09/12: cont haldol get records ? hcp ? start antidep unclear hx 09/13: Keeping to self. More talkative today. Pt concerned he will be transferred to [facility]. Pt stated, The paper I signed yesterday. Are you going to send me back to the last hospital? That place was horrible . Pt was educated he signed a release of information with Dr. Gonzalez to obtain records from [facility]. Pt was given a copy of the release he signed. Despite this, pt continues to be anxious about being transferred. Pt denies SI/HI/VH/AH. 09/14: Keeping to self. active on unit. showered. Pt reports feeling alright today; pt reports he is worried about where I'm going to go . Pt continues concerned he will be transferred to [facility]. Pt denies SI/HI/VH/AH. 09/15:Pt reports feeling alright today; pt continues to report he is worried about where I'm going to go . Responding with brief responses. Guarded. Observed standing in one place for a long period of time. Appears confused. Pt denies SI/HI/VH/AH. T/W spoke to patient's sister, Ros, with patients verbal consent. Ros reports concerns regarding patients ability to make decisions regarding his mental and physical health. She plans on contacting legal advice on obtaining guardianship of patient. 09/16:Patient's presents similar to yesterday's presentation. Responding with brief responses. Guarded. Observed standing in one place for a long period of time, when asked what he is doing, pt stated, I don't know . Pt reports he plans on contacting his sister today and try to convince her for me to stay there . Pt denies SI/HI/VH/AH. Continue current tx plan. 09/17: brief responses. Guarded. 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 Pt denies SI/HI/VH/AH. T/W and Dr. Gonzalez spoke to patient's sister, Ros. Ros stated being [place] HCP and plans on finding document. She plans on coming to the hospital on Saturday to be present for [facility] intake. 09/21: No changes 09/22:Patient flat apathetic difficult insight and judgment his sister is healthcare proxy if needed patient is accepting medical treatment Referral to [facility] 09/23:Considers starting Haldol Decanoate patient is agreeable superficially difficulty with exec fx was seen [facility] 09/24:Pt seen in f/u mood flat dysphoric difficulty engaging in conversation preoccupied with thought he wont be living with family thing slowed apathetic no clear response with namenda ? some improvement inc lamictal start low dose sertraline inc lamictal ck tsh 09/25:Start Abilify as augmentation with Haldol see if can be more stimulating regarding depressed mood apathetic limited engagement sertraline 50 mg Lamictal 25 b.i.d. referral to [facility] which would have structure unclear if patient can engage with this he remains quite depressed has delusional beliefs regarding housing and that things have been done he has repeatedly tried to reach out to his sister denies active SI needs much help dressing talking with others encouragement to eat severe thought blocking Abilify might be more stimulating than Haldol which can be more dulling 09/26:Abilify started sertraline Lamictal encouraged step-down to [facility]' encourage reality orientation denies active SI 09/27: Continue current regimen and plans 09/28: Continue current regimen and plans. 09/29: Referral to [facility] increase Abilify to 5 mg daily eventually try and taper Haldol sertraline 50 mg daily 09/30:Increase Abilify to 10 mg lower Haldol to 7 mg continue sertraline and Lamictal 10/01:Abilify increased to 10 mg continue to taper Haldol sertraline 100 mg Lamictal increased to 75 mg patient apathetic withdrawn difficulty with placement some paranoia continues difficulty with decision making at times. Not physically aggressive internally preoccupied seems somewhat improved with Abilify sertraline Continue discharge planning 10/02:Patient somewhat blunted flat slowed thinking during the day times staring. Change Abilify to 10 mg at bedtime. Scheduled Haldol will lowered to 2.5 mg Continue sertraline 100 mg Namenda 5 b.i.d. 10/03:Haldol discontinued modafinil low-dose monitor for psychosis or agitation continue discharge planning 10/06: May need to firm healthcare proxy calls have been placed to sister to try to help in discharge planning. Referrals made. Patient cooperative with care 10/07:Pharmacy ordering Abilify maintain a increase modafinil 100 mg patient remains flat passive depressed some improvement noted no current paranoia noted continue discharge planning no current safe discharge plan 10/08: Increase Lamictal 100 mg Abilify Maintena 400 mg hold modafinil unclear if was overly stimulating patient continues to present internally preoccupied. 10/09:Healthcare proxy invoked discharge planning continue Lamictal Abilify pending maintain a 10/10:Healthcare proxy invoked new CV signed discharge planning. 10/11 keep same treatment 10/12 keep same treatment 10/13: Continue plan of care Lamictal Abilify discharge planning sertraline 10/14: stable. continue current mgmt. 10/15: stable. continue current mgmt. 15: stable presentation. continue current mgmt. 16: as for yesterday. 10/18: no changes. 10/19: stabel, safe. no change. 10/20: no change in presentation. calm, cooperative. active on unit, social with select peers, attending groups. Pt reports feeling alright . denies SI/HI/VH/AH. Social work waiting to hear from possible placement location. Continue current tx plan. 10/21: continue current tx plan. awaiting placement. 10/22: calm, cooperative. active on unit, social with select peers, attending groups. Pt reports feeling good ; pt stated, I'm waiting to see where I'm going . denies SI/HI/VH/AH. Showered with encouragement. 10/23: continue current tx plan. 10/24: calm, cooperative. active on unit, social with select peers, attending groups. Pt reports feeling good ; pt stated, I just want a place to live . 10/25- likely at baseline for him- CTP 10/26 CTP likely needs placement 10/27: continue current tx plan. awaiting placement. 10/28: Similar to yesterday. No change in presentation. 10/29: Pt reports feeling good ;pt stated, just waiting for a place to live . denies any issues at this time. 10/30: calm, cooperative. active on unit, social with select peers, attending groups. Pt reports feeling worried about where I am going to live . denies any issues at this time. 10/21: no change in presentation. continue current tx plan. 11/01: continue current management and treatment plan. 11/02: Continue current management and treatment plan. 11/03: Continue current management and treatment plan. 11/04: Active on unit. calm, cooperative. social with select peers, attending groups. denies any issues at this time. He reports sleeping well. Pt reports he would be interested in applying for [facility] services; social work aware. 11/05: Active on unit. calm, cooperative. social with select peers, attending groups. denies any issues at this time. Pt reports feeling okay ; he reports anxiety regarding placement. Continue current tx plan. 11/07/23 [facility]H referral has appropriate concerns re living stuation cont abilify lamictal 11/08/23 Pt cooperative with care d/c planning working with sw cont d/c planning cont lamictal abilify 11/12/23 Patient increasingly despairing aware of no clear discharge plan periods needs cuing for much functioning limited social engaged needs help regarding diabetes and medication compliance reportedly had been rejected by multiple rest homes patient not threatening intermittently hopeless helpless very limited family contact at this time 11/13/23 pt flat depressed hopeless helpless unable to fx without structure 11/15 continue tx. 11/16 continue tx. 11/18/2023 Continue plan of care referral to [facility] TSH low will decrease levothyroxine 11/19/23 Pt flat dysphor ic inc hopeless helpless lamictal 150 hs dec levothyroxine 150 d/c planning cont 11/20/23 lamictal inc d/c planning dm referral 12/02/2023 Continue Lamictal Abilify patient cooperative with care gets despairing at times regarding lack of family support problematic discharge planning in relationship to finding suitable structured place to live 12/02: Social with peers. Per nursing, pt did not sleep last night. Pt reports he did not sleeping because he wasn't tired but feel okay ; ordered Ativan 1mg PO bedtime for tonight, pt aware. 12/03: In bed sleeping, pt reports he is catching up on sleep from the night before. Calm, cooperative. T/W and railway track worker, Billie, with pt to discuss possibly going to the [facility]. Pt reports he would like to call his sister and speak to her before deciding. DC Ativan. 12/04: Active on unit, social with peers. attending groups. T/W and railway track worker, Billie, met with pt to discuss discharge plan. Pt reports he doesn't know if he would want to go to a homeless care home; he states he would rather live on the street because I've done it before . Pt encouraged to consider benefits of going to a care home with the winter months coming; he agreed to doing phone intake with renal social worker on Saturday with [facility]. 12/05: Pt presents similar to yesterday. Continues to perseverate about [facility] being a care home and not a program; He continues to agree to do phone intake on Saturday. Discussed VARGAS, pt reports he want time to consider d/t not liking needles . 12/08: Pt had phone interview with [facility], however, after multiple attempts at calling them, no one at [facility] picked up the phone to conduct interview. railway track worker to get into contact with them again. Pt denies any issues at this time. 12/09: Active on unit, social with peers. Pt denies any issues at this time. Patient agreed to receiving Abilify Maintena; risks/benefits reviewed. Waiting on placement. 12/10: Patient received Abilify Maintena yesterday. He denies any side effects. Pleasant. Waiting on placement. 12/11: continue current tx plan. 12/12: similar to days prior. waiting on placement. continue current tx plan. 12/13: appearing more depressed or demoralized. notes lots of people come and go. continue current mgmt. 12/14: same as for yesterday: find me a place to live? continue current mgmt. 12/15: out and about more. otherwise stable. continue current mgmt. 12/16: continue current tx plan. 12/17: continue current tx plan. 12/18: awaiting placement. denies any issues. 12/19: Pt reports feeling alright ; Social work continues to work on placement. Pt denies any issues at this time. Pt reports sleeping well. 12/20: Continue plan of care 12/21: Continue plan of care 12/22: continue current tx plan. 12/23: continue tx plan. 12/24: continue tx plan. 12/25: similar to days prior. waiting on placement. 12/26: Continue current tx plan. 12/27: Continue current management and treatment plan. Reason for continued inpatient stay Substantial Risk for: inability to function, rapid decompensation and med/psych decompensation Time Spent With Patient Time: Total time managing care of this patient today ____ minutes.
[2023-12-28 12:01] LABS: Glucose, Whole Blood 127 mg/dL (60-115)
[2023-12-28] MEDS: metFORMIN HCl ER 500 MG TAB.ER.24H 1000 MG PO (16:53)
[2023-12-28 17:02] LABS: Glucose, Whole Blood 178 mg/dL (60-115)
[2023-12-28] MEDS: Insulin Lispro 100 UNIT/ML 3 ML VIAL SUBCUT ×2 (17:14→21:50)
[2023-12-28 19:46] VITALS: BP 117/81; PULSE 80; RESP 16; TEMP 36.9; O2SAT 98
[2023-12-28 21:37] LABS: Glucose, Whole Blood 152 mg/dL (60-115)
[2023-12-28] MEDS: Insulin Glargine,Hum.rec.anlog 100 UNIT/ML 10 ML VIAL 20 UNIT SUBCUT (21:50)
[2023-12-28] MEDS: hydrOXYzine HCL 25 MG TABLET PO (21:51)
[2023-12-28] MEDS: ARIPiprazole 10 MG TABLET PO (21:51)
[2023-12-28] MEDS: traZODone HCL 50 MG TABLET PO ×2 (21:51→23:16)
[2023-12-28] MEDS: lamoTRIgine 100 MG TABLET 150 MG PO (21:52)
[2023-12-29 08:02] LABS: Glucose, Whole Blood 131 mg/dL (60-115)
[2023-12-29] MEDS: Memantine HCl 5 MG TABLET PO ×2 (10:07→22:02)
[2023-12-29] MEDS: Sertraline HCL 100 MG TABLET PO (10:07)
[2023-12-29] MEDS: Levothyroxine Sodium 150 MCG TABLET PO (10:07)
[2023-12-29 11:31] LABS: Glucose, Whole Blood 208 mg/dL (60-115)
--- NOTE | 2023-12-29 11:49 | HO.PSYCHPN ---
Subjective Subjective Date of Service: 12/29/23 Reason For Visit: paranoia cognitive impairment Interim History: Active on unit, social with peers. Patient reports feeling good ; Continues to wait on placement. denies any issues at this time. Review of Systems Review of Systems unremarkable Yes all other systems are reviewed and are negative and unobtainable due to endotracheal tube Constitutional: Reports as per HPI Eyes: Reports as per HPI Reports as per HPI Cardiovascular: Reports as per HPI Respiratory: Reports as per HPI Gastrointestinal: Reports as per HPI Genitourinary: Reports as per HPI Musculoskeletal: Reports as per HPI Skin/Breast: Reports as per HPI Reports as per HPI Psychiatric: Reports as per HPI Endocrine: Reports as per HPI Hematologic/Lymphatic: Reports as per HPI Allergic/Immunologic: Reports as per HPI Mental Status Exam Mental Status Exam Narrative: The patient is dysphoric sad looking blunted poverty of content limited engagement slowed mentation. slowed mentation continues difficulty with discharge planning suspiciousness at signing releases At times some level of suspiciousness no overt aggression or marked paranoia difficulty at times understanding difficulty at times changing sets. Poverty of content no SI HI actively difficulty with decision-making impaired insight judgment Patient Appearance: Disheveled Patient Orientation: Person, Place and Situation Level of Consciousness: Awake Patient Behavior: Appropriate and Cooperative Mood Description: Calm and Blunted Affect Description: Blunted Patient Cognition Impaired: Yes Ability to Follow Directions: Fair Speech Pattern: Clear and Soft-Spoken 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: Fdc Impaired Diagnostics Vital Signs (24Hr): Vital Signs - 24 hr 12/28/23 19:46 Temperature 98.5 F Pulse Rate 80 Respiratory Rate 16 Blood Pressure 117/81 Pulse Oximetry 98 Oxygen Delivery Method Room Air BMI result Body Mass Index 32.3 Labs 09/10/23 20:00 12/28/23 09:57 Labs: Laboratory Results - last 48 hr 12/27/23 12/27/23 12/27/23 12:05 16:45 21:25 Creatinine Estim Creat Clear Calc Estimated GFR POC Glucose 363 H* 221 H 218 H 12/28/23 12/28/23 12/28/23 07:43 09:57 11:46 Creatinine 1.02 Estim Creat Clear Calc 91.0 Estimated GFR > 60 POC Glucose 128 H 127 H 12/28/23 12/28/23 12/29/23 16:53 21:32 07:53 Creatinine Estim Creat Clear Calc Estimated GFR POC Glucose 178 H 152 H 131 H 12/29/23 11:28 Creatinine Estim Creat Clear Calc Estimated GFR POC Glucose 208 H Imaging Radiology Impressions: ITS Impressions Brain MRI 09/19/23 20:33 IMPRESSION: 1. No demonstrated acute intracranial abnormalities. 2. Chronic mild to moderate nonspecific white matter changes, most notably in the deep white matter of the right frontal lobe. Mild to moderate generalized cerebral volume loss. Medications Medications Current Medications Acetaminophen (Acetaminophen 325 Mg Tablet) 650 mg PO Q6H PRN PRN Reason: Headache/Pain Mild Scale (1-3) Last Admin: 12/19/23 12:03 Dose: 650 mg Al Hydroxide/Mg Hydroxide (Magnesium Hydrox/Alum Hydrox 30 Ml Oral.Susp) 30 ml PO Q6H PRN PRN Reason: Heartburn/Nausea Last Admin: 11/27/23 10:48 Dose: 30 ml Aripiprazole (Aripiprazole 10 Mg Tablet) 10 mg PO BEDTIME MANAS Last Admin: 12/28/23 21:51 Dose: 10 mg Aripiprazole (Aripiprazole Er 300 Mg Suser.Syr) 300 mg IM Q28D MANAS Last Admin: 12/10/23 17:14 Dose: 300 mg Benztropine Mesylate (Benztropine Mesylate 0.5 Mg Tablet) 0.5 mg PO TID PRN PRN Reason: Extrapyramidal Effects Glucose (Glucose Gel 15 Gm Gel..Gram.) 15 gm PO Q15M PRN; Protocol PRN Reason: per Hypoglycemia Standing Ord. Hydroxyzine HCl (Hydroxyzine Hcl 25 Mg Tablet) 25 mg PO Q6H PRN PRN Reason: Anxiety Last Admin: 12/28/23 21:51 Dose: 25 mg Dextrose (D10) 250 mls @ 750 mls/hr IV Q15M PRN; Protocol PRN Reason: per Hypoglycemia Standing Ord. Insulin Glargine (Insulin Glargine,Hum.Rec.Anlog 100 Unit/Ml 10 Ml Vial) 20 unit SUBCUT BEDTIME MANAS Last Admin: 12/28/23 21:50 Dose: 20 unit Insulin Human Lispro (Insulin Lispro 100 Unit/Ml 3 Ml Vial) 0 unit SUBCUT QIDACHS MANAS; Protocol Last Admin: 12/29/23 08:51 Dose: Not Given Lamotrigine (Lamotrigine 100 Mg Tablet) 150 mg PO BEDTIME MANAS Last Admin: 12/28/23 21:52 Dose: 150 mg Levothyroxine Sodium (Levothyroxine Sodium 150 Mcg Tablet) 150 mcg PO DAILY@0800 [facility] Last Admin: 12/29/23 10:07 Dose: 150 mcg Magnesium Hydroxide (Milk Of Magnesia 30 Ml Oral.Susp) 30 ml PO DAILY PRN PRN Reason: Constipation Memantine (Memantine Hcl 5 Mg Tablet) 5 mg PO BID [facility] Last Admin: 12/29/23 10:07 Dose: 5 mg Metformin HCl (Metformin Hcl Er 500 Mg Tab.Er.24h) 1,000 mg PO DAILY@1700 [facility] Last Admin: 12/28/23 16:53 Dose: 1,000 mg Ondansetron HCl (Ondansetron Odt 8 Mg Tab.Rapdis) 8 mg TRANSLINGU Q8H PRN PRN Reason: Nausea and Vomiting Last Admin: 12/13/23 10:51 Dose: 8 mg Sertraline HCl (Sertraline Hcl 100 Mg Tablet) 100 mg PO DAILY [facility] Last Admin: 12/29/23 10:07 Dose: 100 mg Simethicone (Simethicone 80 Mg Tab.Chew) 80 mg PO QIDWMHS PRN PRN Reason: Gas Trazodone HCl (Trazodone Hcl 50 Mg Tablet) 50 mg PO BEDTIME MRX1 PRN PRN Reason: Insomnia Last Admin: 12/28/23 23:16 Dose: 50 mg Allergies Allergies Allergy/AdvReac Type Severity Reaction Status Date / Time amoxicillin [AMOXICILLIN] Allergy Mild VOMITING/ABD Verified 09/10/23 19:44 PAIN Assessment & Plan Assessment & Plan (1) Schizoaffective disorder: Status: Acute Code(s): F25.9 - Schizoaffective disorder, unspecified (2) Hypothyroidism: Status: Acute Code(s): E03.9 - Hypothyroidism, unspecified (3) Type 2 diabetes mellitus: Status: Acute Code(s): E11.9 - Type 2 diabetes mellitus without complications (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 Plan: CV 15 minute safety checks Continue home medications: Haldol 10mg PO daily Synthroid 200mcg PO daily Obtain labs; A1C/POCs Obtain collateral from sister Obtain records from last hospitalization. MOCA Referral for DMH services if patient is agreeable. encourage medication compliance;consider VARGAS discharge planning 09/11: Elevated fasting blood sugar elevated hemoglobin A1c 9.2 med consult placed put in point of care needed will start metformin Would benefit from clarity over recent hospitalization what this were done details regarding treatment continue Haldol unclear if patient has Healthcare proxy his [place] was low slowed cognition with poor details in depth at times during blankly regarding making judgments Unclear if any of this relates to past coma or 2 hypothyroidism. He does seem more impaired than when last seen unclear when last imaging was. Continue Haldol sitter neuro indira involvement regarding diagnostic picture. Patient does remain paranoid blunted suspicious apathetic. He might benefit from longer-term placement if available and appropriate at a later time involved DMH involvement would be quite helpful 09/12: cont haldol get records ? hcp ? start antidep unclear hx 09/13: Keeping to self. More talkative today. Pt concerned he will be transferred to [facility]. Pt stated, The paper I signed yesterday. Are you going to send me back to the last hospital? That place was horrible . Pt was educated he signed a release of information with Dr. Gonzalez to obtain records from [facility]. Pt was given a copy of the release he signed. Despite this, pt continues to be anxious about being transferred. Pt denies SI/HI/VH/AH. 09/14: Keeping to self. active on unit. showered. Pt reports feeling alright today; pt reports he is worried about where I'm going to go . Pt continues concerned he will be transferred to [facility]. Pt denies SI/HI/VH/AH. 09/15:Pt reports feeling alright today; pt continues to report he is worried about where I'm going to go . Responding with brief responses. Guarded. Observed standing in one place for a long period of time. Appears confused. Pt denies SI/HI/VH/AH. T/W spoke to patient's sister, Ros, with patients verbal consent. Ros reports concerns regarding patients ability to make decisions regarding his mental and physical health. She plans on contacting legal advice on obtaining guardianship of patient. 09/16:Patient's presents similar to yesterday's presentation. Responding with brief responses. Guarded. Observed standing in one place for a long period of time, when asked what he is doing, pt stated, I don't know . Pt reports he plans on contacting his sister today and try to convince her for me to stay there . Pt denies SI/HI/VH/AH. Continue current tx plan. 09/17: brief responses. Guarded. Continues to health and safety inspector one place for a long period of time, when asked what he is doing, pt stated, I don't know . Pt denies SI/HI/VH/AH. T/W and Dr. Gonzalez spoke to patient's sister, Ros. Ros stated being Scott HCP and plans on finding document. She plans on coming to the hospital on Saturday to be present for [facility] intake. 09/21: No changes 09/22:Patient flat apathetic difficult insight and judgment his sister is healthcare proxy if needed patient is accepting medical treatment Referral to [facility] 09/23:Considers starting Haldol Decanoate patient is agreeable superficially difficulty with exec fx was seen [facility] 09/24:Pt seen in f/u mood flat dysphoric difficulty engaging in conversation preoccupied with thought he wont be living with family thing slowed apathetic no clear response with namenda ? some improvement inc lamictal start low dose sertraline inc lamictal ck tsh 09/25:Start Abilify as augmentation with Haldol see if can be more stimulating regarding depressed mood apathetic limited engagement sertraline 50 mg Lamictal 25 b.i.d. referral to [facility] which would have structure unclear if patient can engage with this he remains quite depressed has delusional beliefs regarding housing and that things have been done he has repeatedly tried to reach out to his sister denies active SI needs much help dressing talking with others encouragement to eat severe thought blocking Abilify might be more stimulating than Haldol which can be more dulling 09/26:Abilify started sertraline Lamictal encouraged step-down to [facility]' encourage reality orientation denies active SI 09/27: Continue current regimen and plans 09/28: Continue current regimen and plans. 09/29: Referral to [facility] increase Abilify to 5 mg daily eventually try and taper Haldol sertraline 50 mg daily 09/30:Increase Abilify to 10 mg lower Haldol to 7 mg continue sertraline and Lamictal 10/01:Abilify increased to 10 mg continue to taper Haldol sertraline 100 mg Lamictal increased to 75 mg patient apathetic withdrawn difficulty with placement some paranoia continues difficulty with decision making at times. Not physically aggressive internally preoccupied seems somewhat improved with Abilify sertraline Continue discharge planning 10/02:Patient somewhat blunted flat slowed thinking during the day times staring. Change Abilify to 10 mg at bedtime. Scheduled Haldol will lowered to 2.5 mg Continue sertraline 100 mg Namenda 5 b.i.d. 10/03:Haldol discontinued modafinil low-dose monitor for psychosis or agitation continue discharge planning 10/06: May need to firm healthcare proxy calls have been placed to sister to try to help in discharge planning. Referrals made. Patient cooperative with care 10/07:Pharmacy ordering Abilify maintain a increase modafinil 100 mg patient remains flat passive depressed some improvement noted no current paranoia noted continue discharge planning no current safe discharge plan 10/08: Increase Lamictal 100 mg Abilify Maintena 400 mg hold modafinil unclear if was overly stimulating patient continues to present internally preoccupied. 10/09:Healthcare proxy invoked discharge planning continue Lamictal Abilify pending maintain a 10/10:Healthcare proxy invoked new CV signed discharge planning. 10/11 keep same treatment 10/12 keep same treatment 10/13: Continue plan of care Lamictal Abilify discharge planning sertraline 10/14: stable. continue current mgmt. 10/15: stable. continue current mgmt. 15: stable presentation. continue current mgmt. 16: as for yesterday. 10/18: no changes. 8/18: stabel, safe. no change. 10/20: no change in presentation. calm, cooperative. active on unit, social with select peers, attending groups. Pt reports feeling alright . denies SI/HI/VH/AH. Social work waiting to hear from possible placement location. Continue current tx plan. 10/21: continue current tx plan. awaiting placement. 10/22: calm, cooperative. active on unit, social with select peers, attending groups. Pt reports feeling good ; pt stated, I'm waiting to see where I'm going . denies SI/HI/VH/AH. Showered with encouragement. 10/23: continue current tx plan. 10/24: calm, cooperative. active on unit, social with select peers, attending groups. Pt reports feeling good ; pt stated, I just want a place to live . 10/25- likely at baseline for him- CTP 10/26 CTP likely needs placement 10/27: continue current tx plan. awaiting placement. 10/28: Similar to yesterday. No change in presentation. 10/29: Pt reports feeling good ;pt stated, just waiting for a place to live . denies any issues at this time. 10/30: calm, cooperative. active on unit, social with select peers, attending groups. Pt reports feeling worried about where I am going to live . denies any issues at this time. 10/21: no change in presentation. continue current tx plan. 11/01: continue current management and treatment plan. 11/02: Continue current management and treatment plan. 11/03: Continue current management and treatment plan. 11/04: Active on unit. calm, cooperative. social with select peers, attending groups. denies any issues at this time. He reports sleeping well. Pt reports he would be interested in applying for [facility] services; social work aware. 11/05: Active on unit. calm, cooperative. social with select peers, attending groups. denies any issues at this time. Pt reports feeling okay ; he reports anxiety regarding placement. Continue current tx plan. 11/07/23 DMH referral has appropriate concerns re living stuation cont abilify lamictal 11/08/23 Pt cooperative with care d/c planning working with sw cont d/c planning cont lamictal abilify 11/12/23 Patient increasingly despairing aware of no clear discharge plan periods needs cuing for much functioning limited social engaged needs help regarding diabetes and medication compliance reportedly had been rejected by multiple rest homes patient not threatening intermittently hopeless helpless very limited family contact at this time 11/13/23 pt flat depressed hopeless helpless unable to fx without structure 11/15 continue tx. 11/16 continue tx. 11/18/2023 Continue plan of care referral to [facility] TSH low will decrease levothyroxine 11/19/23 Pt flat dysphor ic inc hopeless helpless lamictal 150 hs dec levothyroxine 150 d/c planning cont 11/20/23 lamictal inc d/c planning dm referral 12/02/2023 Continue Lamictal Abilify patient cooperative with care gets despairing at times regarding lack of family support problematic discharge planning in relationship to finding suitable structured place to live 12/02: Social with peers. Per nursing, pt did not sleep last night. Pt reports he did not sleeping because he wasn't tired but feel okay ; ordered Ativan 1mg PO bedtime for tonight, pt aware. 12/03: In bed sleeping, pt reports he is catching up on sleep from the night before. Calm, cooperative. T/W and utility worker production, Billie, with pt to discuss possibly going to the [facility]. Pt reports he would like to call his sister and speak to her before deciding. DC Ativan. 12/04: Active on unit, social with peers. attending groups. T/W and utility worker production, Billie, met with pt to discuss discharge plan. Pt reports he doesn't know if he would want to go to a homeless [facility]; he states he would rather live on the street because I've done it before . Pt encouraged to consider benefits of going to a [facility] with the winter months coming; he agreed to doing phone intake with social science instructor on Saturday with [facility]. 12/05: Pt presents similar to yesterday. Continues to perseverate about [facility] being a m[facility] and not a program; He continues to agree to do phone intake on Saturday. Discussed VARGAS, pt reports he want time to consider d/t not liking needles . 12/08: Pt had phone interview with [facility], however, after multiple attempts at calling them, no one at [facility] picked up the phone to conduct interview. utility worker production to get into contact with them again. Pt denies any issues at this time. 12/09: Active on unit, social with peers. Pt denies any issues at this time. Patient agreed to receiving Abilify Maintena; risks/benefits reviewed. Waiting on placement. 12/10: Patient received Abilify Maintena yesterday. He denies any side effects. Pleasant. Waiting on placement. 12/11: continue current tx plan. 12/12: similar to days prior. waiting on placement. continue current tx plan. 12/13: appearing more depressed or demoralized. notes lots of people come and go. continue current mgmt. 12/14: same as for yesterday: find me a place to live? continue current mgmt. 12/15: out and about more. otherwise stable. continue current mgmt. 12/16: continue current tx plan. 12/17: continue current tx plan. 12/18: awaiting placement. denies any issues. 12/19: Pt reports feeling alright ; Social work continues to work on placement. Pt denies any issues at this time. Pt reports sleeping well. 12/20: Continue plan of care 12/21: Continue plan of care 12/22: continue current tx plan. 12/23: continue tx plan. 12/24: continue tx plan. 12/25: similar to days prior. waiting on placement. 12/26: Continue current tx plan. 12/27: Continue current management and treatment plan. 12/28: Continue current management and treatment plan. Reason for continued inpatient stay Substantial Risk for: inability to function and rapid decompensation Time Spent With Patient Time: Total time managing care of this patient today ____ minutes.
[2023-12-29] MEDS: Insulin Lispro 100 UNIT/ML 3 ML VIAL SUBCUT (12:00)
[2023-12-29 16:35] LABS: Glucose, Whole Blood 114 mg/dL (60-115)
[2023-12-29] MEDS: metFORMIN HCl ER 500 MG TAB.ER.24H 1000 MG PO (17:07)
[2023-12-29 20:00] VITALS: BP 135/78; PULSE 88; RESP 16; TEMP 36.9; O2SAT 96
[2023-12-29 21:44] LABS: Glucose, Whole Blood 136 mg/dL (60-115)
[2023-12-29] MEDS: lamoTRIgine 100 MG TABLET 150 MG PO (22:01)
[2023-12-29] MEDS: Insulin Glargine,Hum.rec.anlog 100 UNIT/ML 10 ML VIAL 20 UNIT SUBCUT (22:01)
[2023-12-29] MEDS: hydrOXYzine HCL 25 MG TABLET PO (22:02)
[2023-12-29] MEDS: traZODone HCL 50 MG TABLET PO ×2 (22:02→23:35)
[2023-12-29] MEDS: ARIPiprazole 10 MG TABLET PO (22:02)
[2023-12-29] MEDS: Acetaminophen 325 MG TABLET 650 MG PO (23:35)
[2023-12-30 07:37] VITALS: BP 129/74; PULSE 96; RESP 26; TEMP 36.6; O2SAT 99
[2023-12-30 08:07] LABS: Glucose, Whole Blood 125 mg/dL (60-115)
[2023-12-30] MEDS: Sertraline HCL 100 MG TABLET PO (08:22)
[2023-12-30] MEDS: Levothyroxine Sodium 150 MCG TABLET PO (08:22)
[2023-12-30] MEDS: Memantine HCl 5 MG TABLET PO ×2 (08:22→20:59)
[2023-12-30] MEDS: Acetaminophen 325 MG TABLET 650 MG PO ×2 (09:16→16:37)
[2023-12-30] MEDS: Throat Lozenge, Medicated LOZENGE 1 LOZENGE MUCOUS MEM ×3 (09:18→20:59)
[2023-12-30] MEDS: Ondansetron ODT 8 MG TAB.RAPDIS TRANSLINGU (09:18)
[2023-12-30 11:01] LABS: Influenza A PCR NEGATIVE (Negative); Influenza B PCR NEGATIVE (Negative); Resp Syncy Virus RNA Qual PCR NEGATIVE (Negative); SARS COV2 PCR INHOUSE POSITIVE (Negative)
[2023-12-30 11:45] LABS: Glucose, Whole Blood 121 mg/dL (60-115)
--- NOTE | 2023-12-30 12:53 | P.PNPSI_ITS ---
Subjective Subjective Date of Service: 12/30/23 Reason For Visit: paranoia cognitive impairment Subjective Notes: Conditional Voluntary Interim History: Reviewed with Dr. Gonzalez. In bed, tested positive for Covid. Vomited x1 per nursing. Pt reports feeling okay ; sleeping most of shift. Medication Compliance: Yes Side effects from medications: No 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: Section Chief Impaired Diagnostics Vital Signs (24Hr): Vital Signs - 24 hr 12/29/23 20:00 12/30/23 07:37 Temperature 98.4 F 97.9 F Pulse Rate 88 96 Respiratory Rate 16 26 H Blood Pressure 135/78 129/74 Pulse Oximetry 96 99 Oxygen Delivery Method Room Air Room Air BMI result Body Mass Index 32.3 Labs 09/10/23 20:00 12/28/23 09:57 Labs: Laboratory Results - last 48 hr 12/28/23 12/28/23 12/29/23 16:53 21:32 07:53 POC Glucose 178 H 152 H 131 H Influenza Type A (PCR) Influenza Type B (PCR) RSV RNA Qual (PCR) SARS-CoV-2 RNA (RT-PCR) 12/29/23 12/29/23 12/29/23 11:28 16:31 21:38 POC Glucose 208 H 114 136 H Influenza Type A (PCR) Influenza Type B (PCR) RSV RNA Qual (PCR) SARS-CoV-2 RNA (RT-PCR) 12/30/23 12/30/23 12/30/23 07:54 10:05 11:40 POC Glucose 125 H 121 H Influenza Type A (PCR) NEGATIVE Influenza Type B (PCR) NEGATIVE RSV RNA Qual (PCR) NEGATIVE SARS-CoV-2 RNA (RT-PCR) POSITIVE A Imaging Radiology Impressions: ITS Impressions Brain MRI 09/19/23 20:33 IMPRESSION: 1. No demonstrated acute intracranial abnormalities. 2. Chronic mild to moderate nonspecific white matter changes, most notably in the deep white matter of the right frontal lobe. Mild to moderate generalized cerebral volume loss. Medications Medications Current Medications Acetaminophen (Acetaminophen 325 Mg Tablet) 650 mg PO Q6H PRN PRN Reason: Headache/Pain Mild Scale (1-3) Last Admin: 12/30/23 09:16 Dose: 650 mg Al Hydroxide/Mg Hydroxide (Magnesium Hydrox/Alum Hydrox 30 Ml Oral.Susp) 30 ml PO Q6H PRN PRN Reason: Heartburn/Nausea Last Admin: 11/27/23 10:48 Dose: 30 ml Aripiprazole (Aripiprazole Er 300 Mg Suser.Syr) 300 mg IM Q28D MANAS Last Admin: 12/10/23 17:14 Dose: 300 mg Benzocaine (Throat Lozenge, Medicated Lozenge) 1 lozenge MUCOUS MEM Q2H PRN PRN Reason: Sore Throat Last Admin: 12/30/23 09:18 Dose: 1 lozenge Benztropine Mesylate (Benztropine Mesylate 0.5 Mg Tablet) 0.5 mg PO TID PRN PRN Reason: Extrapyramidal Effects Glucose (Glucose Gel 15 Gm Gel..Gram.) 15 gm PO Q15M PRN; Protocol PRN Reason: per Hypoglycemia Standing Ord. Guaifenesin/Dextromethorphan (Guaifenesin Dm 100/10/5 Ml 5 Ml Syrup) 5 ml PO Q4H PRN PRN Reason: Cough Hydroxyzine HCl (Hydroxyzine Hcl 25 Mg Tablet) 25 mg PO Q6H PRN PRN Reason: Anxiety Last Admin: 12/29/23 22:02 Dose: 25 mg Dextrose (D10) 250 mls @ 750 mls/hr IV Q15M PRN; Protocol PRN Reason: per Hypoglycemia Standing Ord. Insulin Glargine (Insulin Glargine,Hum.Rec.Anlog 100 Unit/Ml 10 Ml Vial) 20 unit SUBCUT BEDTIME [facility] Last Admin: 12/29/23 22:01 Dose: 20 unit Insulin Human Lispro (Insulin Lispro 100 Unit/Ml 3 Ml Vial) 0 unit SUBCUT QIDACHS [facility]; Protocol Last Admin: 12/30/23 08:21 Dose: Not Given Lamotrigine (Lamotrigine 100 Mg Tablet) 150 mg PO BEDTIME [facility] Last Admin: 12/29/23 22:01 Dose: 150 mg Levothyroxine Sodium (Levothyroxine Sodium 150 Mcg Tablet) 150 mcg PO DAILY@0800 [facility] Last Admin: 12/30/23 08:22 Dose: 150 mcg Magnesium Hydroxide (Milk Of Magnesia 30 Ml Oral.Susp) 30 ml PO DAILY PRN PRN Reason: Constipation Memantine (Memantine Hcl 5 Mg Tablet) 5 mg PO BID [facility] Last Admin: 12/30/23 08:22 Dose: 5 mg Metformin HCl (Metformin Hcl Er 500 Mg Tab.Er.24h) 1,000 mg PO DAILY@1700 [facility] Last Admin: 12/29/23 17:07 Dose: 1,000 mg Ondansetron HCl (Ondansetron Odt 8 Mg Tab.Rapdis) 8 mg TRANSLINGU Q8H PRN PRN Reason: Nausea and Vomiting Last Admin: 12/30/23 09:18 Dose: 8 mg Sertraline HCl (Sertraline Hcl 100 Mg Tablet) 100 mg PO DAILY [facility] Last Admin: 12/30/23 08:22 Dose: 100 mg Simethicone (Simethicone 80 Mg Tab.Chew) 80 mg PO QIDWMHS PRN PRN Reason: Gas Trazodone HCl (Trazodone Hcl 50 Mg Tablet) 50 mg PO BEDTIME MRX1 PRN PRN Reason: Insomnia Last Admin: 12/29/23 23:35 Dose: 50 mg Allergies Allergies Allergy/AdvReac Type Severity Reaction Status Date / Time amoxicillin [AMOXICILLIN] Allergy Mild VOMITING/ABD Verified 09/10/23 19:44 PAIN Assessment & Plan Assessment & Plan (1) Schizoaffective disorder: Status: Acute Code(s): F25.9 - Schizoaffective disorder, unspecified (2) Hypothyroidism: Status: Acute Code(s): E03.9 - Hypothyroidism, unspecified (3) Type 2 diabetes mellitus: Status: Acute Code(s): E11.9 - Type 2 diabetes mellitus without complications (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 Plan: CV 15 minute safety checks Continue home medications: Haldol 10mg PO daily Synthroid 200mcg PO daily Obtain labs; A1C/POCs Obtain collateral from sister Obtain records from last hospitalization. MOCA Referral for DMH services if patient is agreeable. encourage medication compliance;consider VARGAS discharge planning 09/11: Elevated fasting blood sugar elevated hemoglobin A1c 9.2 med consult placed put in point of care needed will start metformin Would benefit from clarity over recent hospitalization what this were done details regarding treatment continue Haldol unclear if patient has Healthcare proxy his Pearl was low slowed cognition with poor details in depth at times during blankly regarding making judgments Unclear if any of this relates to past coma or 2 hypothyroidism. He does seem more impaired than when last seen unclear when last imaging was. Continue Haldol sitter neuro indira involvement regarding diagnostic picture. Patient does remain paranoid blunted suspicious apathetic. He might benefit from longer- term placement if available and appropriate at a later time involved [facility]H involvement would be quite helpful 09/12: cont haldol get records ? hcp ? start antidep unclear hx 09/13: Keeping to self. More talkative today. Pt concerned he will be transferred to [facility]. Pt stated, The paper I signed yesterday. Are you going to send me back to the last hospital? That place was horrible . Pt was educated he signed a release of information with Dr. Gonzalez to obtain records from [facility]. Pt was given a copy of the release he signed. Despite this, pt continues to be anxious about being transferred. Pt denies SI/HI/VH/AH. 09/14: Keeping to self. active on unit. showered. Pt reports feeling alright today; pt reports he is worried about where I'm going to go . Pt continues concerned he will be transferred to [facility]. Pt denies SI/HI/VH/AH. 09/15:Pt reports feeling alright today; pt continues to report he is worried about where I'm going to go . Responding with brief responses. Guarded. Observed standing in one place for a long period of time. Appears confused. Pt denies SI/HI/VH/AH. T/W spoke to patient's sister, Ros, with patients verbal consent. Ros reports concerns regarding patients ability to make decisions regarding his mental and physical health. She plans on contacting legal advice on obtaining guardianship of patient. 09/16:Patient's presents similar to yesterday's presentation. Responding with brief responses. Guarded. Observed standing in one place for a long period of time, when asked what he is doing, pt stated, I don't know . Pt reports he plans on contacting his sister today and try to convince her for me to stay there . Pt denies SI/HI/VH/AH. Continue current tx plan. 09/17: brief responses. Guarded. 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 Pt denies SI/HI/VH/AH. T/W and Dr. Gonzalez spoke to patient's sister, Ros. Ros stated being [facility] HCP and plans on finding document. She plans on coming to the hospital on Saturday to be present for [facility] intake. 09/21: No changes 09/22:Patient flat apathetic difficult insight and judgment his sister is healthcare proxy if needed patient is accepting medical treatment Referral to [facility] 09/23:Considers starting Haldol Decanoate patient is agreeable superficially difficulty with exec fx was seen [facility] 09/24:Pt seen in f/u mood flat dysphoric difficulty engaging in conversation preoccupied with thought he wont be living with family thing slowed apathetic no clear response with namenda ? some improvement inc lamictal start low dose sertraline inc lamictal ck tsh 09/25:Start Abilify as augmentation with Haldol see if can be more stimulating regarding depressed mood apathetic limited engagement sertraline 50 mg Lamictal 25 b.i.d. referral to [facility] which would have structure unclear if patient can engage with this he remains quite depressed has delusional beliefs regarding housing and that things have been done he has repeatedly tried to reach out to his sister denies active SI needs much help dressing talking with others encouragement to eat severe thought blocking Abilify might be more stimulating than Haldol which can be more dulling 09/26:Abilify started sertraline Lamictal encouraged step-down to [facility] encourage reality orientation denies active SI 09/27: Continue current regimen and plans 09/28: Continue current regimen and plans. 09/29: Referral to [facility] increase Abilify to 5 mg daily eventually try and taper Haldol sertraline 50 mg daily 09/30:Increase Abilify to 10 mg lower Haldol to 7 mg continue sertraline and Lamictal 10/01:Abilify increased to 10 mg continue to taper Haldol sertraline 100 mg Lamictal increased to 75 mg patient apathetic withdrawn difficulty with placement some paranoia continues difficulty with decision making at times. Not physically aggressive internally preoccupied seems somewhat improved with Abilify sertraline Continue discharge planning 10/02:Patient somewhat blunted flat slowed thinking during the day times staring. Change Abilify to 10 mg at bedtime. Scheduled Haldol will lowered to 2.5 mg Continue sertraline 100 mg Namenda 5 b.i.d. 10/03:Haldol discontinued modafinil low-dose monitor for psychosis or agitation continue discharge planning 10/06: May need to firm healthcare proxy calls have been placed to sister to try to help in discharge planning. Referrals made. Patient cooperative with care 10/07:Pharmacy ordering Abilify maintain a increase modafinil 100 mg patient remains flat passive depressed some improvement noted no current paranoia noted continue discharge planning no current safe discharge plan 10/08: Increase Lamictal 100 mg Abilify Maintena 400 mg hold modafinil unclear if was overly stimulating patient continues to present internally preoccupied. 10/09:Healthcare proxy invoked discharge planning continue Lamictal Abilify pending maintain a 10/10:Healthcare proxy invoked new CV signed discharge planning. 10/11 keep same treatment 10/12 keep same treatment 10/13: Continue plan of care Lamictal Abilify discharge planning sertraline 10/14: stable. continue current mgmt. 10/15: stable. continue current mgmt. 10/16: stable presentation. continue current mgmt. 10/17: as for yesterday. 10/18: no changes. 10/19: stabel, safe. no change. 10/20: no change in presentation. calm, cooperative. active on unit, social with select peers, attending groups. Pt reports feeling alright . denies SI/HI/VH/AH. Social work waiting to hear from possible placement location. Continue current tx plan. 10/21: continue current tx plan. awaiting placement. 10/22: calm, cooperative. active on unit, social with select peers, attending groups. Pt reports feeling good ; pt stated, I'm waiting to see where I'm going . denies SI/HI/VH/AH. Showered with encouragement. 10/23: continue current tx plan. 10/24: calm, cooperative. active on unit, social with select peers, attending groups. Pt reports feeling good ; pt stated, I just want a place to live . 10/25- likely at baseline for him- CTP 10/26 CTP likely needs placement 10/27: continue current tx plan. awaiting placement. 10/28: Similar to yesterday. No change in presentation. 10/29: Pt reports feeling good ;pt stated, just waiting for a place to live . denies any issues at this time. 10/30: calm, cooperative. active on unit, social with select peers, attending groups. Pt reports feeling worried about where I am going to live . denies any issues at this time. 10/21: no change in presentation. continue current tx plan. 11/01: continue current management and treatment plan. 11/02: Continue current management and treatment plan. 11/03: Continue current management and treatment plan. 11/04: Active on unit. calm, cooperative. social with select peers, attending groups. denies any issues at this time. He reports sleeping well. Pt reports he would be interested in applying for [facility] services; social work aware. 11/05: Active on unit. calm, cooperative. social with select peers, attending groups. denies any issues at this time. Pt reports feeling okay ; he reports anxiety regarding placement. Continue current tx plan. 11/07/23 DMH referral has appropriate concerns re living stuation cont abilify lamictal 11/08/23 Pt cooperative with care d/c planning working with sw cont d/c planning cont lamictal abilify 11/12/23 Patient increasingly despairing aware of no clear discharge plan periods needs cuing for much functioning limited social engaged needs help regarding diabetes and medication compliance reportedly had been rejected by multiple rest homes patient not threatening intermittently hopeless helpless very limited family contact at this time 11/13/23 pt flat depressed hopeless helpless unable to fx without structure 11/15 continue tx. 11/16 continue tx. 11/18/2023 Continue plan of care referral to [facility] TSH low will decrease levothyroxine 11/19/23 Pt flat dysphor ic inc hopeless helpless lamictal 150 hs dec levothyroxine 150 d/c planning cont 11/20/23 lamictal inc d/c planning dm referral 12/02/2023 Continue Lamictal Abilify patient cooperative with care gets despairing at times regarding lack of family support problematic discharge planning in relationship to finding suitable structured place to live 12/02: Social with peers. Per nursing, pt did not sleep last night. Pt reports he did not sleeping because he wasn't tired but feel okay ; ordered Ativan 1mg PO bedtime for tonight, pt aware. 12/03: In bed sleeping, pt reports he is catching up on sleep from the night before. Calm, cooperative. T/W and putty worker, Billie, with pt to discuss possibly going to the [facility]. Pt reports he would like to call his sister and speak to her before deciding. DC Ativan. 12/04: Active on unit, social with peers. attending groups. T/W and putty worker, Billie, met with pt to discuss discharge plan. Pt reports he doesn't know if he would want to go to a homeless detention; he states he would rather live on the street because I've done it before . Pt encouraged to consider benefits of going to a detention with the winter months coming; he agreed to doing phone intake with social science manager on Saturday with [facility]. 12/05: Pt presents similar to yesterday. Continues to perseverate about [facility] being a detention and not a program; He continues to agree to do phone intake on Saturday. Discussed VARGAS, pt reports he want time to consider d/t not liking needles . 12/08: Pt had phone interview with [facility], however, after multiple attempts at calling them, no one at [facility] picked up the phone to conduct interview. putty worker to get into contact with them again. Pt denies any issues at this time. 12/09: Active on unit, social with peers. Pt denies any issues at this time. Patient agreed to receiving Abilify Maintena; risks/benefits reviewed. Waiting on placement. 12/10: Patient received Abilify Maintena yesterday. He denies any side effects. Pleasant. Waiting on placement. 12/11: continue current tx plan. 12/12: similar to days prior. waiting on placement. continue current tx plan. 12/13: appearing more depressed or demoralized. notes lots of people come and go. continue current mgmt. 12/14: same as for yesterday: find me a place to live? continue current mgmt. 12/15: out and about more. otherwise stable. continue current mgmt. 12/16: continue current tx plan. 12/17: continue current tx plan. 12/18: awaiting placement. denies any issues. 12/19: Pt reports feeling alright ; Social work continues to work on placement. Pt denies any issues at this time. Pt reports sleeping well. 12/20: Continue plan of care 12/21: Continue plan of care 12/22: continue current tx plan. 12/23: continue tx plan. 12/24: continue tx plan. 12/25: similar to days prior. waiting on placement. 12/26: Continue current tx plan. 12/27: Continue current management and treatment plan. 12/28: Continue current management and treatment plan. 12/29: In bed, tested positive for Covid. Vomited x1 per nursing. Pt reports feeling okay ; sleeping most of shift. Continue current tx plan. Patient educated on: diagnosis, medication risk/benefits and medical condition Reason for continued inpatient stay Substantial Risk for: other (waiting on placement.) Time Spent With Patient Time: Total time managing care of this patient today _20___ minutes.
[2023-12-30 16:15] VITALS: BP 126/80; PULSE 80; RESP 18; TEMP 37; O2SAT 96
[2023-12-30 16:36] LABS: Glucose, Whole Blood 108 mg/dL (60-115)
[2023-12-30] MEDS: metFORMIN HCl ER 500 MG TAB.ER.24H 1000 MG PO (16:37)
[2023-12-30] MEDS: guaiFENesin DM 100/10/5 ML 5 ML SYRUP PO ×2 (16:37→20:58)
--- NOTE | 2023-12-30 18:16 | PC.NURSE ---
Joe woke up this am c/o upper and lower respiratory congestion. He vomited multiple times but denied this was brought on by cough. I have an upset stomach His bowel sounds are audible. He declined Maalox. He took zofran, tylenol and throat lozenge. He did ate only bites of breakfast and lunch and drank only sips of fluids despite encouragment. Fluids provided bedside. Pt tested positive for Covid this morning and is on isolation precautions. He was moved to the anteroom. He expressed displeasure about having to move. I have been in that bed for 4 months. It doesn't need to change. I explained contagion to pt and he still insisted on staying in his bed in the triple room. He was perseverative about going back to that bed. When I told him that he could move back to that bed after his isolation was over he expressed belief that the pt currently assigned to that bed was conspiring against him to keep that bed.
[2023-12-30 20:00] VITALS: BP 147/69; PULSE 88; RESP 16; TEMP 37.2; O2SAT 97
[2023-12-30 20:43] LABS: Glucose, Whole Blood 123 mg/dL (60-115)
[2023-12-30] MEDS: traZODone HCL 50 MG TABLET PO (20:58)
[2023-12-30] MEDS: Insulin Glargine,Hum.rec.anlog 100 UNIT/ML 10 ML VIAL 20 UNIT SUBCUT (20:58)
[2023-12-30] MEDS: hydrOXYzine HCL 25 MG TABLET PO (20:59)
[2023-12-30] MEDS: lamoTRIgine 100 MG TABLET 150 MG PO (20:59)
[2023-12-31 07:57] LABS: Glucose, Whole Blood 112 mg/dL (60-115)
[2023-12-31 08:35] VITALS: BP 123/71; PULSE 96; RESP 16; TEMP 37.4; O2SAT 95
[2023-12-31] MEDS: Memantine HCl 5 MG TABLET PO ×2 (08:39→21:35)
[2023-12-31] MEDS: Ondansetron ODT 8 MG TAB.RAPDIS TRANSLINGU (08:39)
[2023-12-31] MEDS: Levothyroxine Sodium 150 MCG TABLET PO (08:39)
[2023-12-31] MEDS: Sertraline HCL 100 MG TABLET PO (08:39)
[2023-12-31] MEDS: Acetaminophen 325 MG TABLET 650 MG PO (08:40)
--- NOTE | 2023-12-31 09:47 | P.PNPSI_ITS ---
Subjective Subjective Date of Service: 12/31/23 Reason For Visit: paranoia cognitive impairment Subjective Notes: Conditional Voluntary Interim History: Reviewed with Dr. Gonzalez. Pt reports feeling okay ; continues on isolation d/t being Covid positive. Utilizing IPad. Pt reports sleeping well. denies SI/HI/VH/AH. Medication Compliance: Yes Side effects from medications: No Review of Systems Constitutional: Reports as per HPI Eyes: Reports as per HPI Reports as per HPI Cardiovascular: Reports as per HPI Respiratory: Reports as per HPI Gastrointestinal: Reports as per HPI Genitourinary: Reports as per HPI Musculoskeletal: Reports as per HPI Skin/Breast: Reports as per HPI Reports as per HPI Psychiatric: Reports as per HPI Endocrine: Reports as per HPI Hematologic/Lymphatic: Reports as per HPI Allergic/Immunologic: Reports as per HPI 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: Spinner Tender Impaired Diagnostics Vital Signs (24Hr): Vital Signs - 24 hr 12/30/23 16:15 12/30/23 20:00 Temperature 98.6 F 99 F Pulse Rate 80 88 Respiratory Rate 18 16 Blood Pressure 126/80 147/69 H Pulse Oximetry 96 97 Oxygen Delivery Method Room Air Room Air BMI result Body Mass Index 32.3 Labs 09/10/23 20:00 12/28/23 09:57 Labs: Laboratory Results - last 48 hr 12/29/23 12/29/23 12/29/23 11:28 16:31 21:38 POC Glucose 208 H 114 136 H Influenza Type A (PCR) Influenza Type B (PCR) RSV RNA Qual (PCR) SARS-CoV-2 RNA (RT-PCR) 12/30/23 12/30/23 12/30/23 07:54 10:05 11:40 POC Glucose 125 H 121 H Influenza Type A (PCR) NEGATIVE Influenza Type B (PCR) NEGATIVE RSV RNA Qual (PCR) NEGATIVE SARS-CoV-2 RNA (RT-PCR) POSITIVE A 12/30/23 12/30/23 12/31/23 16:31 20:35 07:46 POC Glucose 108 123 H 112 Influenza Type A (PCR) Influenza Type B (PCR) RSV RNA Qual (PCR) SARS-CoV-2 RNA (RT-PCR) Imaging Radiology Impressions: ITS Impressions Brain MRI 09/19/23 20:33 IMPRESSION: 1. No demonstrated acute intracranial abnormalities. 2. Chronic mild to moderate nonspecific white matter changes, most notably in the deep white matter of the right frontal lobe. Mild to moderate generalized cerebral volume loss. Medications Medications Current Medications Acetaminophen (Acetaminophen 325 Mg Tablet) 650 mg PO Q6H PRN PRN Reason: Headache/Pain Mild Scale (1-3) Last Admin: 12/31/23 08:40 Dose: 650 mg Al Hydroxide/Mg Hydroxide (Magnesium Hydrox/Alum Hydrox 30 Ml Oral.Susp) 30 ml PO Q6H PRN PRN Reason: Heartburn/Nausea Last Admin: 11/27/23 10:48 Dose: 30 ml Aripiprazole (Aripiprazole Er 300 Mg Suser.Syr) 300 mg IM Q28D MANAS Last Admin: 12/10/23 17:14 Dose: 300 mg Benzocaine (Throat Lozenge, Medicated Lozenge) 1 lozenge MUCOUS MEM Q2H PRN PRN Reason: Sore Throat Last Admin: 12/30/23 20:59 Dose: 1 lozenge Benztropine Mesylate (Benztropine Mesylate 0.5 Mg Tablet) 0.5 mg PO TID PRN PRN Reason: Extrapyramidal Effects Glucose (Glucose Gel 15 Gm Gel..Gram.) 15 gm PO Q15M PRN; Protocol PRN Reason: per Hypoglycemia Standing Ord. Guaifenesin/Dextromethorphan (Guaifenesin Dm 100/10/5 Ml 5 Ml Syrup) 5 ml PO Q4H PRN PRN Reason: Cough Last Admin: 12/30/23 20:58 Dose: 5 ml Hydroxyzine HCl (Hydroxyzine Hcl 25 Mg Tablet) 25 mg PO Q6H PRN PRN Reason: Anxiety Last Admin: 12/30/23 20:59 Dose: 25 mg Dextrose (D10) 250 mls @ 750 mls/hr IV Q15M PRN; Protocol PRN Reason: per Hypoglycemia Standing Ord. Insulin Glargine (Insulin Glargine,Hum.Rec.Anlog 100 Unit/Ml 10 Ml Vial) 20 unit SUBCUT BEDTIME MANAS Last Admin: 12/30/23 20:58 Dose: 20 unit Insulin Human Lispro (Insulin Lispro 100 Unit/Ml 3 Ml Vial) 0 unit SUBCUT QIDACHS [facility]; Protocol Last Admin: 12/31/23 08:39 Dose: Not Given Lamotrigine (Lamotrigine 100 Mg Tablet) 150 mg PO BEDTIME [facility] Last Admin: 12/30/23 20:59 Dose: 150 mg Levothyroxine Sodium (Levothyroxine Sodium 150 Mcg Tablet) 150 mcg PO DAILY@0800 [facility] Last Admin: 12/31/23 08:39 Dose: 150 mcg Magnesium Hydroxide (Milk Of Magnesia 30 Ml Oral.Susp) 30 ml PO DAILY PRN PRN Reason: Constipation Memantine (Memantine Hcl 5 Mg Tablet) 5 mg PO BID [facility] Last Admin: 12/31/23 08:39 Dose: 5 mg Metformin HCl (Metformin Hcl Er 500 Mg Tab.Er.24h) 1,000 mg PO DAILY@1700 [facility] Last Admin: 12/30/23 16:37 Dose: 1,000 mg Ondansetron HCl (Ondansetron Odt 8 Mg Tab.Rapdis) 8 mg TRANSLINGU Q8H PRN PRN Reason: Nausea and Vomiting Last Admin: 12/31/23 08:39 Dose: 8 mg Sertraline HCl (Sertraline Hcl 100 Mg Tablet) 100 mg PO DAILY [facility] Last Admin: 12/31/23 08:39 Dose: 100 mg Simethicone (Simethicone 80 Mg Tab.Chew) 80 mg PO QIDWMHS PRN PRN Reason: Gas Trazodone HCl (Trazodone Hcl 50 Mg Tablet) 50 mg PO BEDTIME MRX1 PRN PRN Reason: Insomnia Last Admin: 12/30/23 20:58 Dose: 50 mg Allergies Allergies Allergy/AdvReac Type Severity Reaction Status Date / Time amoxicillin [AMOXICILLIN] Allergy Mild VOMITING/ABD Verified 09/10/23 19:44 PAIN Assessment & Plan Assessment & Plan (1) Schizoaffective disorder: Status: Acute Code(s): F25.9 - Schizoaffective disorder, unspecified (2) Hypothyroidism: Status: Acute Code(s): E03.9 - Hypothyroidism, unspecified (3) Type 2 diabetes mellitus: Status: Acute Code(s): E11.9 - Type 2 diabetes mellitus without complications (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 Plan: CV 15 minute safety checks Continue home medications: Haldol 10mg PO daily Synthroid 200mcg PO daily Obtain labs; A1C/POCs Obtain collateral from sister Obtain records from last hospitalization. MOCA Referral for [facility] services if patient is agreeable. encourage medication compliance;consider VARGAS discharge planning 09/11: Elevated fasting blood sugar elevated hemoglobin A1c 9.2 med consult placed put in point of care needed will start metformin Would benefit from clarity over recent hospitalization what this were done details regarding treatment continue Haldol unclear if patient has Healthcare proxy his [place] was low slowed cognition with poor details in depth at times during blankly regarding making judgments Unclear if any of this relates to past coma or 2 hypothyroidism. He does seem more impaired than when last seen unclear when last imaging was. Continue Haldol sitter neuro indira involvement regarding diagnostic picture. Patient does remain paranoid blunted suspicious apathetic. He might benefit from longer- term placement if available and appropriate at a later time involved [facility] involvement would be quite helpful 09/12: cont haldol get records ? hcp ? start antidep unclear hx 09/13: Keeping to self. More talkative today. Pt concerned he will be transferred to [facility]. Pt stated, The paper I signed yesterday. Are you going to send me back to the last hospital? That place was horrible . Pt was educated he signed a release of information with Dr. Gonzalez to obtain records from [facility]. Pt was given a copy of the release he signed. Despite this, pt continues to be anxious about being transferred. Pt denies SI/HI/VH/AH. 09/14: Keeping to self. active on unit. showered. Pt reports feeling alright today; pt reports he is worried about where I'm going to go . Pt continues concerned he will be transferred to [facility]. Pt denies SI/HI/VH/AH. 09/15:Pt reports feeling alright today; pt continues to report he is worried about where I'm going to go . Responding with brief responses. Guarded. Observed standing in one place for a long period of time. Appears confused. Pt denies SI/HI/VH/AH. T/W spoke to patient's sister, Ros, with patients verbal consent. Ros reports concerns regarding patients ability to make decisions regarding his mental and physical health. She plans on contacting legal advice on obtaining guardianship of patient. 09/16:Patient's presents similar to yesterday's presentation. Responding with brief responses. Guarded. Observed standing in one place for a long period of time, when asked what he is doing, pt stated, I don't know . Pt reports he plans on contacting his sister today and try to convince her for me to stay there . Pt denies SI/HI/VH/AH. Continue current tx plan. 09/17: brief responses. Guarded. Continues to ironer machine one place for a long period of time, when asked what he is doing, pt stated, I don't know . Pt denies SI/HI/VH/AH. T/W and Dr. Gonzalez spoke to patient's sister, Ros. Ros stated being [facility] HCP and plans on finding document. She plans on coming to the hospital on Saturday to be present for [facility] intake. 09/21: No changes 09/22:Patient flat apathetic difficult insight and judgment his sister is healthcare proxy if needed patient is accepting medical treatment Referral to [facility] 09/23:Considers starting Haldol Decanoate patient is agreeable superficially difficulty with exec fx was seen [facility] 09/24:Pt seen in f/u mood flat dysphoric difficulty engaging in conversation preoccupied with thought he wont be living with family thing slowed apathetic no clear response with namenda ? some improvement inc lamictal start low dose sertraline inc lamictal ck tsh 09/25:Start Abilify as augmentation with Haldol see if can be more stimulating regarding depressed mood apathetic limited engagement sertraline 50 mg Lamictal 25 b.i.d. referral to [facility] which would have structure unclear if patient can engage with this he remains quite depressed has delusional beliefs regarding housing and that things have been done he has repeatedly tried to reach out to his sister denies active SI needs much help dressing talking with others encouragement to eat severe thought blocking Abilify might be more stimulating than Haldol which can be more dulling 09/26:Abilify started sertraline Lamictal encouraged step-down to [facility] encourage reality orientation denies active SI 09/27: Continue current regimen and plans 09/28: Continue current regimen and plans. 09/29: Referral to [facility] increase Abilify to 5 mg daily eventually try and taper Haldol sertraline 50 mg daily 09/30:Increase Abilify to 10 mg lower Haldol to 7 mg continue sertraline and Lamictal 10/01:Abilify increased to 10 mg continue to taper Haldol sertraline 100 mg Lamictal increased to 75 mg patient apathetic withdrawn difficulty with placement some paranoia continues difficulty with decision making at times. Not physically aggressive internally preoccupied seems somewhat improved with Abilify sertraline Continue discharge planning 10/02:Patient somewhat blunted flat slowed thinking during the day times staring. Change Abilify to 10 mg at bedtime. Scheduled Haldol will lowered to 2.5 mg Continue sertraline 100 mg Namenda 5 b.i.d. 10/03:Haldol discontinued modafinil low-dose monitor for psychosis or agitation continue discharge planning 10/06: May need to firm healthcare proxy calls have been placed to sister to try to help in discharge planning. Referrals made. Patient cooperative with care 10/07:Pharmacy ordering Abilify maintain a increase modafinil 100 mg patient remains flat passive depressed some improvement noted no current paranoia noted continue discharge planning no current safe discharge plan 10/08: Increase Lamictal 100 mg Abilify Maintena 400 mg hold modafinil unclear if was overly stimulating patient continues to present internally preoccupied. 10/09:Healthcare proxy invoked discharge planning continue Lamictal Abilify pending maintain a 10/10:Healthcare proxy invoked new CV signed discharge planning. 10/11 keep same treatment 10/12 keep same treatment 10/13: Continue plan of care Lamictal Abilify discharge planning sertraline 10/14: stable. continue current mgmt. 10/15: stable. continue current mgmt. 10/16: stable presentation. continue current mgmt. 10/17: as for yesterday. 10/18: no changes. 10/19: stabel, safe. no change. 10/20: no change in presentation. calm, cooperative. active on unit, social with select peers, attending groups. Pt reports feeling alright . denies SI/HI/VH/AH. Social work waiting to hear from possible placement location. Continue current tx plan. 10/21: continue current tx plan. awaiting placement. 10/22: calm, cooperative. active on unit, social with select peers, attending groups. Pt reports feeling good ; pt stated, I'm waiting to see where I'm going . denies SI/HI/VH/AH. Showered with encouragement. 10/23: continue current tx plan. 10/24: calm, cooperative. active on unit, social with select peers, attending groups. Pt reports feeling good ; pt stated, I just want a place to live . 10/25- likely at baseline for him- CTP 10/26 CTP likely needs placement 10/27: continue current tx plan. awaiting placement. 10/28: Similar to yesterday. No change in presentation. 10/29: Pt reports feeling good ;pt stated, just waiting for a place to live . denies any issues at this time. 10/30: calm, cooperative. active on unit, social with select peers, attending groups. Pt reports feeling worried about where I am going to live . denies any issues at this time. 10/21: no change in presentation. continue current tx plan. 11/01: continue current management and treatment plan. 11/02: Continue current management and treatment plan. 11/03: Continue current management and treatment plan. 11/04: Active on unit. calm, cooperative. social with select peers, attending groups. denies any issues at this time. He reports sleeping well. Pt reports he would be interested in applying for [facility] services; social work aware. 11/05: Active on unit. calm, cooperative. social with select peers, attending groups. denies any issues at this time. Pt reports feeling okay ; he reports anxiety regarding placement. Continue current tx plan. 11/07/23 [facility] referral has appropriate concerns re living stuation cont abilify lamictal 11/08/23 Pt cooperative with care d/c planning working with sw cont d/c planning cont lamictal abilify 11/12/23 Patient increasingly despairing aware of no clear discharge plan periods needs cuing for much functioning limited social engaged needs help regarding diabetes and medication compliance reportedly had been rejected by multiple rest homes patient not threatening intermittently hopeless helpless very limited family contact at this time 11/13/23 pt flat depressed hopeless helpless unable to fx without structure 11/15 continue tx. 11/16 continue tx. 11/18/2023 Continue plan of care referral to [facility] TSH low will decrease levothyroxine 11/19/23 Pt flat dysphor ic inc hopeless helpless lamictal 150 hs dec levothyroxine 150 d/c planning cont 11/20/23 lamictal inc d/c planning [facility] referral 12/02/2023 Continue Lamictal Abilify patient cooperative with care gets despairing at times regarding lack of family support problematic discharge planning in relationship to finding suitable structured place to live 12/02: Social with peers. Per nursing, pt did not sleep last night. Pt reports he did not sleeping because he wasn't tired but feel okay ; ordered Ativan 1mg PO bedtime for tonight, pt aware. 12/03: In bed sleeping, pt reports he is catching up on sleep from the night before. Calm, cooperative. T/W and room worker, Billie, with pt to discuss possibly going to the [facility]. Pt reports he would like to call his sister and speak to her before deciding. DC Ativan. 12/04: Active on unit, social with peers. attending groups. T/W and room workerBillie, met with pt to discuss discharge plan. Pt reports he doesn't know if he would want to go to a homeless skilled nursing; he states he would rather live on the street because I've done it before . Pt encouraged to consider benefits of going to a skilled nursing with the winter months coming; he agreed to doing phone intake with secondary social studies teacher on Saturday with [facility] [facility]. 12/05: Pt presents similar to yesterday. Continues to perseverate about [facility] [facility] being a skilled nursing and not a program; He continues to agree to do phone intake on Saturday. Discussed V[facility]AS, pt reports he want time to consider d/t not liking needles . 12/08: Pt had phone interview with [facility], however, after multiple attempts at calling them, no one at [facility] picked up the phone to conduct interview. room worker to get into contact with them again. Pt denies any issues at this time. 12/09: Active on unit, social with peers. Pt denies any issues at this time. Patient agreed to receiving Abilify Maintena; risks/benefits reviewed. Waiting on placement. 12/10: Patient received Abilify Maintena yesterday. He denies any side effects. Pleasant. Waiting on placement. 12/11: continue current tx plan. 12/12: similar to days prior. waiting on placement. continue current tx plan. 12/13: appearing more depressed or demoralized. notes lots of people come and go. continue current mgmt. 12/14: same as for yesterday: find me a place to live? continue current mgmt. 12/15: out and about more. otherwise stable. continue current mgmt. 12/16: continue current tx plan. 12/17: continue current tx plan. 12/18: awaiting placement. denies any issues. 12/19: Pt reports feeling alright ; Social work continues to work on placement. Pt denies any issues at this time. Pt reports sleeping well. 12/20: Continue plan of care 12/21: Continue plan of care 12/22: continue current tx plan. 12/23: continue tx plan. 12/24: continue tx plan. 12/25: similar to days prior. waiting on placement. 12/26: Continue current tx plan. 12/27: Continue current management and treatment plan. 12/28: Continue current management and treatment plan. 12/29: In bed, tested positive for Covid. Vomited x1 per nursing. Pt reports feeling okay ; sleeping most of shift. Continue current tx plan. 12/30: Pt reports feeling okay ; continues on isolation d/t being Covid positive. Utilizing IPad. Pt reports sleeping well. denies SI/HI/VH/AH. Has not vomited today. Reason for continued inpatient stay Substantial Risk for: other Time Spent With Patient Time: Total time managing care of this patient today _20___ minutes.
[2023-12-31 11:43] LABS: Glucose, Whole Blood 127 mg/dL (60-115)
[2023-12-31 17:01] LABS: Glucose, Whole Blood 133 mg/dL (60-115)
[2023-12-31] MEDS: metFORMIN HCl ER 500 MG TAB.ER.24H 1000 MG PO (17:12)
[2023-12-31 20:58] VITALS: BP 130/85; PULSE 107; RESP 16; TEMP 37.1; O2SAT 96
[2023-12-31 21:04] LABS: Glucose, Whole Blood 160 mg/dL (60-115)
[2023-12-31] MEDS: Insulin Glargine,Hum.rec.anlog 100 UNIT/ML 10 ML VIAL 20 UNIT SUBCUT (21:33)
[2023-12-31] MEDS: Insulin Lispro 100 UNIT/ML 3 ML VIAL SUBCUT (21:34)
[2023-12-31] MEDS: traZODone HCL 50 MG TABLET PO (21:35)
[2023-12-31] MEDS: lamoTRIgine 100 MG TABLET 150 MG PO (21:36)
[2024-01-01 07:53] LABS: Glucose, Whole Blood 142 mg/dL (60-115)
[2024-01-01 08:00] VITALS: BP 131/64; PULSE 96; RESP 18; TEMP 36.8; O2SAT 95
[2024-01-01] MEDS: Memantine HCl 5 MG TABLET PO ×2 (08:45→21:56)
[2024-01-01] MEDS: Levothyroxine Sodium 150 MCG TABLET PO (08:45)
[2024-01-01] MEDS: Acetaminophen 325 MG TABLET 650 MG PO (08:45)
[2024-01-01] MEDS: Sertraline HCL 100 MG TABLET PO (08:46)
--- NOTE | 2024-01-01 09:00 | HO.PSYCHPN ---
Subjective Subjective Date of Service: 01/01/24 Reason For Visit: paranoia cognitive impairment Subjective Notes: Conditional Voluntary Interim History: Pt reports feeling alright ; pt stated, I still have a stuffy nose, cough and headache but I'm starting to feel better . continues on isolation. denies other issues at this time. Medication Compliance: Yes Side effects from medications: No Review of Systems Constitutional: Reports as per HPI Eyes: Reports as per HPI Reports as per HPI Cardiovascular: Reports as per HPI Respiratory: Reports as per HPI Gastrointestinal: Reports as per HPI Genitourinary: Reports as per HPI Musculoskeletal: Reports as per HPI Skin/Breast: Reports as per HPI Reports as per HPI Psychiatric: Reports as per HPI Endocrine: Reports as per HPI Hematologic/Lymphatic: Reports as per HPI Allergic/Immunologic: Reports as per HPI 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: [facility] Impaired Diagnostics Vital Signs (24Hr): Vital Signs - 24 hr 12/31/23 20:58 01/01/24 08:00 Temperature 98.8 F 98.3 F Pulse Rate 107 H 96 Respiratory Rate 16 18 Blood Pressure 130/85 131/64 Pulse Oximetry 96 95 Oxygen Delivery Method Room Air Room Air BMI result Body Mass Index 32.3 Labs 09/10/23 20:00 12/28/23 09:57 Labs: Laboratory Results - last 48 hr 12/30/23 12/30/23 12/30/23 10:05 11:40 16:31 POC Glucose 121 H 108 Influenza Type A (PCR) NEGATIVE Influenza Type B (PCR) NEGATIVE RSV RNA Qual (PCR) NEGATIVE SARS-CoV-2 RNA (RT-PCR) POSITIVE A 12/30/23 12/31/23 12/31/23 20:35 07:46 11:38 POC Glucose 123 H 112 127 H Influenza Type A (PCR) Influenza Type B (PCR) RSV RNA Qual (PCR) SARS-CoV-2 RNA (RT-PCR) 12/31/23 12/31/23 01/01/24 16:55 20:44 07:48 POC Glucose 133 H 160 H 142 H Influenza Type A (PCR) Influenza Type B (PCR) RSV RNA Qual (PCR) SARS-CoV-2 RNA (RT-PCR) Imaging Radiology Impressions: ITS Impressions Brain MRI 09/19/23 20:33 IMPRESSION: 1. No demonstrated acute intracranial abnormalities. 2. Chronic mild to moderate nonspecific white matter changes, most notably in the deep white matter of the right frontal lobe. Mild to moderate generalized cerebral volume loss. Medications Medications Current Medications Acetaminophen (Acetaminophen 325 Mg Tablet) 650 mg PO Q6H PRN PRN Reason: Headache/Pain Mild Scale (1-3) Last Admin: 01/01/24 08:45 Dose: 650 mg Al Hydroxide/Mg Hydroxide (Magnesium Hydrox/Alum Hydrox 30 Ml Oral.Susp) 30 ml PO Q6H PRN PRN Reason: Heartburn/Nausea Last Admin: 11/27/23 10:48 Dose: 30 ml Aripiprazole (Aripiprazole Er 300 Mg Suser.Syr) 300 mg IM Q28D MANAS Last Admin: 12/10/23 17:14 Dose: 300 mg Benzocaine (Throat Lozenge, Medicated Lozenge) 1 lozenge MUCOUS MEM Q2H PRN PRN Reason: Sore Throat Last Admin: 12/30/23 20:59 Dose: 1 lozenge Benztropine Mesylate (Benztropine Mesylate 0.5 Mg Tablet) 0.5 mg PO TID PRN PRN Reason: Extrapyramidal Effects Glucose (Glucose Gel 15 Gm Gel..Gram.) 15 gm PO Q15M PRN; Protocol PRN Reason: per Hypoglycemia Standing Ord. Guaifenesin/Dextromethorphan (Guaifenesin Dm 100/10/5 Ml 5 Ml Syrup) 5 ml PO Q4H PRN PRN Reason: Cough Last Admin: 12/30/23 20:58 Dose: 5 ml Hydroxyzine HCl (Hydroxyzine Hcl 25 Mg Tablet) 25 mg PO Q6H PRN PRN Reason: Anxiety Last Admin: 12/30/23 20:59 Dose: 25 mg Dextrose (D10) 250 mls @ 750 mls/hr IV Q15M PRN; Protocol PRN Reason: per Hypoglycemia Standing Ord. Insulin Glargine (Insulin Glargine,Hum.Rec.Anlog 100 Unit/Ml 10 Ml Vial) 20 unit SUBCUT BEDTIME MANAS Last Admin: 12/31/23 21:33 Dose: 20 unit Insulin Human Lispro (Insulin Lispro 100 Unit/Ml 3 Ml Vial) 0 unit SUBCUT QIDACHS [facility]; Protocol Last Admin: 01/01/24 08:48 Dose: Not Given Lamotrigine (Lamotrigine 100 Mg Tablet) 150 mg PO BEDTIME [facility] Last Admin: 12/31/23 21:36 Dose: 150 mg Levothyroxine Sodium (Levothyroxine Sodium 150 Mcg Tablet) 150 mcg PO DAILY@0800 [facility] Last Admin: 01/01/24 08:45 Dose: 150 mcg Magnesium Hydroxide (Milk Of Magnesia 30 Ml Oral.Susp) 30 ml PO DAILY PRN PRN Reason: Constipation Memantine (Memantine Hcl 5 Mg Tablet) 5 mg PO BID [facility] Last Admin: 01/01/24 08:45 Dose: 5 mg Metformin HCl (Metformin Hcl Er 500 Mg Tab.Er.24h) 1,000 mg PO DAILY@1700 [facility] Last Admin: 12/31/23 17:12 Dose: 1,000 mg Ondansetron HCl (Ondansetron Odt 8 Mg Tab.Rapdis) 8 mg TRANSLINGU Q8H PRN PRN Reason: Nausea and Vomiting Last Admin: 12/31/23 08:39 Dose: 8 mg Sertraline HCl (Sertraline Hcl 100 Mg Tablet) 100 mg PO DAILY [facility] Last Admin: 01/01/24 08:46 Dose: 100 mg Simethicone (Simethicone 80 Mg Tab.Chew) 80 mg PO QIDWMHS PRN PRN Reason: Gas Trazodone HCl (Trazodone Hcl 50 Mg Tablet) 50 mg PO BEDTIME MRX1 PRN PRN Reason: Insomnia Last Admin: 12/31/23 21:35 Dose: 50 mg Allergies Allergies Allergy/AdvReac Type Severity Reaction Status Date / Time amoxicillin [AMOXICILLIN] Allergy Mild VOMITING/ABD Verified 09/10/23 19:44 PAIN Assessment & Plan Assessment & Plan (1) Schizoaffective disorder: Status: Acute Code(s): F25.9 - Schizoaffective disorder, unspecified (2) Hypothyroidism: Status: Acute Code(s): E03.9 - Hypothyroidism, unspecified (3) Type 2 diabetes mellitus: Status: Acute Code(s): E11.9 - Type 2 diabetes mellitus without complications (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 Plan: CV 15 minute safety checks Continue home medications: Haldol 10mg PO daily Synthroid 200mcg PO daily Obtain labs; A1C/POCs Obtain collateral from sister Obtain records from last hospitalization. MOCA Referral for [facility]H services if patient is agreeable. encourage medication compliance;consider VARGAS discharge planning 09/11: Elevated fasting blood sugar elevated hemoglobin A1c 9.2 med consult placed put in point of care needed will start metformin Would benefit from clarity over recent hospitalization what this were done details regarding treatment continue Haldol unclear if patient has Healthcare proxy his [place] was low slowed cognition with poor details in depth at times during blankly regarding making judgments Unclear if any of this relates to past coma or 2 hypothyroidism. He does seem more impaired than when last seen unclear when last imaging was. Continue Haldol sitter neuro indira involvement regarding diagnostic picture. Patient does remain paranoid blunted suspicious apathetic. He might benefit from longer-term placement if available and appropriate at a later time involved [facility] involvement would be quite helpful 09/12: cont haldol get records ? hcp ? start antidep unclear hx 09/13: Keeping to self. More talkative today. Pt concerned he will be transferred to [facility]. Pt stated, The paper I signed yesterday. Are you going to send me back to the last hospital? That place was horrible . Pt was educated he signed a release of information with Dr. Gonzalez to obtain records from [facility]. Pt was given a copy of the release he signed. Despite this, pt continues to be anxious about being transferred. Pt denies SI/HI/VH/AH. 09/14: Keeping to self. active on unit. showered. Pt reports feeling alright today; pt reports he is worried about where I'm going to go . Pt continues concerned he will be transferred to [facility]. Pt denies SI/HI/VH/AH. 09/15:Pt reports feeling alright today; pt continues to report he is worried about where I'm going to go . Responding with brief responses. Guarded. Observed standing in one place for a long period of time. Appears confused. Pt denies SI/HI/VH/AH. T/W spoke to patient's sister, Ros, with patients verbal consent. Ros reports concerns regarding patients ability to make decisions regarding his mental and physical health. She plans on contacting legal advice on obtaining guardianship of patient. 09/16:Patient's presents similar to yesterday's presentation. Responding with brief responses. Guarded. Observed standing in one place for a long period of time, when asked what he is doing, pt stated, I don't know . Pt reports he plans on contacting his sister today and try to convince her for me to stay there . Pt denies SI/HI/VH/AH. Continue current tx plan. 09/17: brief responses. Guarded. 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 Pt denies SI/HI/VH/AH. T/W and Dr. Gonzalez spoke to patient's sister, Ros. Ros stated being [facility] HCP and plans on finding document. She plans on coming to the hospital on Saturday to be present for [facility] intake. 09/21: No changes 09/22:Patient flat apathetic difficult insight and judgment his sister is healthcare proxy if needed patient is accepting medical treatment Referral to [facility] 09/23:Considers starting Haldol Decanoate patient is agreeable superficially difficulty with exec fx was seen [facility] 09/24:Pt seen in f/u mood flat dysphoric difficulty engaging in conversation preoccupied with thought he wont be living with family thing slowed apathetic no clear response with namenda ? some improvement inc lamictal start low dose sertraline inc lamictal ck tsh 09/25:Start Abilify as augmentation with Haldol see if can be more stimulating regarding depressed mood apathetic limited engagement sertraline 50 mg Lamictal 25 b.i.d. referral to [facility] which would have structure unclear if patient can engage with this he remains quite depressed has delusional beliefs regarding housing and that things have been done he has repeatedly tried to reach out to his sister denies active SI needs much help dressing talking with others encouragement to eat severe thought blocking Abilify might be more stimulating than Haldol which can be more dulling 09/26:Abilify started sertraline Lamictal encouraged step-down to [facility] encourage reality orientation denies active SI 09/27: Continue current regimen and plans 09/28: Continue current regimen and plans. 09/29: Referral to [facility] increase Abilify to 5 mg daily eventually try and taper Haldol sertraline 50 mg daily 09/30:Increase Abilify to 10 mg lower Haldol to 7 mg continue sertraline and Lamictal 10/01:Abilify increased to 10 mg continue to taper Haldol sertraline 100 mg Lamictal increased to 75 mg patient apathetic withdrawn difficulty with placement some paranoia continues difficulty with decision making at times. Not physically aggressive internally preoccupied seems somewhat improved with Abilify sertraline Continue discharge planning 10/02:Patient somewhat blunted flat slowed thinking during the day times staring. Change Abilify to 10 mg at bedtime. Scheduled Haldol will lowered to 2.5 mg Continue sertraline 100 mg Namenda 5 b.i.d. 10/03:Haldol discontinued modafinil low-dose monitor for psychosis or agitation continue discharge planning 10/06: May need to firm healthcare proxy calls have been placed to sister to try to help in discharge planning. Referrals made. Patient cooperative with care 10/07:Pharmacy ordering Abilify maintain a increase modafinil 100 mg patient remains flat passive depressed some improvement noted no current paranoia noted continue discharge planning no current safe discharge plan 10/08: Increase Lamictal 100 mg Abilify Maintena 400 mg hold modafinil unclear if was overly stimulating patient continues to present internally preoccupied. 10/09:Healthcare proxy invoked discharge planning continue Lamictal Abilify pending maintain a 10/10:Healthcare proxy invoked new CV signed discharge planning. 10/11 keep same treatment 10/12 keep same treatment 10/13: Continue plan of care Lamictal Abilify discharge planning sertraline 10/14: stable. continue current mgmt. 10/15: stable. continue current mgmt. 10/16: stable presentation. continue current mgmt. 10/17: as for yesterday. 10/18: no changes. 10/19: stabel, safe. no change. 10/20: no change in presentation. calm, cooperative. active on unit, social with select peers, attending groups. Pt reports feeling alright . denies SI/HI/VH/AH. Social work waiting to hear from possible placement location. Continue current tx plan. 10/21: continue current tx plan. awaiting placement. 10/22: calm, cooperative. active on unit, social with select peers, attending groups. Pt reports feeling good ; pt stated, I'm waiting to see where I'm going . denies SI/HI/VH/AH. Showered with encouragement. 10/23: continue current tx plan. 10/24: calm, cooperative. active on unit, social with select peers, attending groups. Pt reports feeling good ; pt stated, I just want a place to live . 10/25- likely at baseline for him- CTP 10/26 CTP likely needs placement 10/27: continue current tx plan. awaiting placement. 10/28: Similar to yesterday. No change in presentation. 10/29: Pt reports feeling good ;pt stated, just waiting for a place to live . denies any issues at this time. 10/30: calm, cooperative. active on unit, social with select peers, attending groups. Pt reports feeling worried about where I am going to live . denies any issues at this time. 10/21: no change in presentation. continue current tx plan. 11/01: continue current management and treatment plan. 11/02: Continue current management and treatment plan. 11/03: Continue current management and treatment plan. 11/04: Active on unit. calm, cooperative. social with select peers, attending groups. denies any issues at this time. He reports sleeping well. Pt reports he would be interested in applying for [facility] services; social work aware. 11/05: Active on unit. calm, cooperative. social with select peers, attending groups. denies any issues at this time. Pt reports feeling okay ; he reports anxiety regarding placement. Continue current tx plan. 11/07/23 [facility] referral has appropriate concerns re living stuation cont abilify lamictal 11/08/23 Pt cooperative with care d/c planning working with sw cont d/c planning cont lamictal abilify 11/12/23 Patient increasingly despairing aware of no clear discharge plan periods needs cuing for much functioning limited social engaged needs help regarding diabetes and medication compliance reportedly had been rejected by multiple rest homes patient not threatening intermittently hopeless helpless very limited family contact at this time 11/13/23 pt flat depressed hopeless helpless unable to fx without structure 11/15 continue tx. 11/16 continue tx. 11/18/2023 Continue plan of care referral to [facility] TSH low will decrease levothyroxine 11/19/23 Pt flat dysphor ic inc hopeless helpless lamictal 150 hs dec levothyroxine 150 d/c planning cont 11/20/23 lamictal inc d/c planning [facility] referral 12/02/2023 Continue Lamictal Abilify patient cooperative with care gets despairing at times regarding lack of family support problematic discharge planning in relationship to finding suitable structured place to live 12/02: Social with peers. Per nursing, pt did not sleep last night. Pt reports he did not sleeping because he wasn't tired but feel okay ; ordered Ativan 1mg PO bedtime for tonight, pt aware. 12/03: In bed sleeping, pt reports he is catching up on sleep from the night before. Calm, cooperative. T/W and child welfare caseworker, Billie, with pt to discuss possibly going to the [facility]. Pt reports he would like to call his sister and speak to her before deciding. DC Ativan. 12/04: Active on unit, social with peers. attending groups. T/W and child welfare caseworkerBillie, met with pt to discuss discharge plan. Pt reports he doesn't know if he would want to go to a homeless retirement; he states he would rather live on the street because I've done it before . Pt encouraged to consider benefits of going to a retirement with the winter months coming; he agreed to doing phone intake with social service liaison on Saturday with [facility]. 12/05: Pt presents similar to yesterday. Continues to perseverate about [facility] being a retirement and not a program; He continues to agree to do phone intake on Saturday. Discussed VARGAS, pt reports he want time to consider d/t not liking needles . 12/08: Pt had phone interview with [facility], however, after multiple attempts at calling them, no one at [facility] picked up the phone to conduct interview. child welfare caseworker to get into contact with them again. Pt denies any issues at this time. 12/09: Active on unit, social with peers. Pt denies any issues at this time. Patient agreed to receiving Abilify Maintena; risks/benefits reviewed. Waiting on placement. 12/10: Patient received Abilify Maintena yesterday. He denies any side effects. Pleasant. Waiting on placement. 12/11: continue current tx plan. 12/12: similar to days prior. waiting on placement. continue current tx plan. 12/13: appearing more depressed or demoralized. notes lots of people come and go. continue current mgmt. 12/14: same as for yesterday: find me a place to live? continue current mgmt. 12/15: out and about more. otherwise stable. continue current mgmt. 12/16: continue current tx plan. 12/17: continue current tx plan. 12/18: awaiting placement. denies any issues. 12/19: Pt reports feeling alright ; Social work continues to work on placement. Pt denies any issues at this time. Pt reports sleeping well. 12/20: Continue plan of care 12/21: Continue plan of care 12/22: continue current tx plan. 12/23: continue tx plan. 12/24: continue tx plan. 12/25: similar to days prior. waiting on placement. 12/26: Continue current tx plan. 12/27: Continue current management and treatment plan. 12/28: Continue current management and treatment plan. 12/29: In bed, tested positive for Covid. Vomited x1 per nursing. Pt reports feeling okay ; sleeping most of shift. Continue current tx plan. 12/30: Pt reports feeling okay ; continues on isolation d/t being Covid positive. Utilizing IPad. Pt reports sleeping well. denies SI/HI/VH/AH. Has not vomited today. 12/31: Pt reports feeling alright ; pt stated, I still have a stuffy nose, cough and headache but I'm starting to feel better . continues on isolation. denies other issues at this time. Continue current tx plan. Reason for continued inpatient stay Substantial Risk for: other (waiting on placement.) Time Spent With Patient Time: Total time managing care of this patient today _20___ minutes.
[2024-01-01 11:47] LABS: Glucose, Whole Blood 111 mg/dL (60-115)
[2024-01-01 16:54] LABS: Glucose, Whole Blood 167 mg/dL (60-115)
[2024-01-01] MEDS: Insulin Lispro 100 UNIT/ML 3 ML VIAL SUBCUT (17:37)
[2024-01-01] MEDS: metFORMIN HCl ER 500 MG TAB.ER.24H 1000 MG PO (17:37)
[2024-01-01 20:00] VITALS: BP 131/76; PULSE 104; RESP 18; TEMP 36.8; O2SAT 96
[2024-01-01 20:45] LABS: Glucose, Whole Blood 124 mg/dL (60-115)
[2024-01-01] MEDS: Insulin Glargine,Hum.rec.anlog 100 UNIT/ML 10 ML VIAL 20 UNIT SUBCUT (21:55)
[2024-01-01] MEDS: guaiFENesin DM 100/10/5 ML 5 ML SYRUP PO (21:56)
[2024-01-01] MEDS: traZODone HCL 50 MG TABLET PO (21:56)
[2024-01-01] MEDS: lamoTRIgine 100 MG TABLET 150 MG PO (21:56)
[2024-01-02 07:45] LABS: Glucose, Whole Blood 115 mg/dL (60-115)
[2024-01-02 08:00] VITALS: BP 128/72; PULSE 83; RESP 18; TEMP 36.4; O2SAT 97
[2024-01-02] MEDS: Sertraline HCL 100 MG TABLET PO (08:01)
[2024-01-02] MEDS: Memantine HCl 5 MG TABLET PO ×2 (08:01→20:45)
[2024-01-02] MEDS: Levothyroxine Sodium 150 MCG TABLET PO (08:01)
[2024-01-02 09:40] LABS: Creatinine Clr Calc Pharmacy 113.2; Estimated Glomerular Filt Rate > 60
--- NOTE | 2024-01-02 10:49 | P.PNPSI_ITS ---
Subjective Subjective Date of Service: 01/02/24 Reason For Visit: paranoia cognitive impairment Subjective Notes: Conditional Voluntary Interim History: Pt reports feeling ok ; pt reports starting to feel better from Covid. continues on isolation. denies other issues at this time. Continues waiting on placement. Medication Compliance: Yes Side effects from medications: No Review of Systems Constitutional: Reports as per HPI Eyes: Reports as per HPI Reports as per HPI Cardiovascular: Reports as per HPI Respiratory: Reports as per HPI Gastrointestinal: Reports as per HPI Genitourinary: Reports as per HPI Musculoskeletal: Reports as per HPI Skin/Breast: Reports as per HPI Reports as per HPI Psychiatric: Reports as per HPI Endocrine: Reports as per HPI Hematologic/Lymphatic: Reports as per HPI Allergic/Immunologic: Reports as per HPI 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 Vital Signs (24Hr): Vital Signs - 24 hr 01/01/24 20:00 01/02/24 08:00 Temperature 98.3 F 97.6 F Pulse Rate 104 H 83 Respiratory Rate 18 18 Blood Pressure 131/76 128/72 Pulse Oximetry 96 97 Oxygen Delivery Method Room Air Room Air BMI result Body Mass Index 32.3 Labs 09/10/23 20:00 01/02/24 07:51 Labs: Laboratory Results - last 48 hr 12/31/23 12/31/23 12/31/23 11:38 16:55 20:44 Creatinine Estim Creat Clear Calc Estimated GFR POC Glucose 127 H 133 H 160 H 01/01/24 01/01/24 01/01/24 07:48 11:41 16:46 Creatinine Estim Creat Clear Calc Estimated GFR POC Glucose 142 H 111 167 H 01/01/24 01/02/24 01/02/24 20:36 07:39 07:51 Creatinine 0.82 Estim Creat Clear Calc 113.2 Estimated GFR > 60 POC Glucose 124 H 115 Imaging Radiology Impressions: ITS Impressions Brain MRI 09/19/23 20:33 IMPRESSION: 1. No demonstrated acute intracranial abnormalities. 2. Chronic mild to moderate nonspecific white matter changes, most notably in the deep white matter of the right frontal lobe. Mild to moderate generalized cerebral volume loss. Medications Medications Current Medications Acetaminophen (Acetaminophen 325 Mg Tablet) 650 mg PO Q6H PRN PRN Reason: Headache/Pain Mild Scale (1-3) Last Admin: 01/01/24 08:45 Dose: 650 mg Al Hydroxide/Mg Hydroxide (Magnesium Hydrox/Alum Hydrox 30 Ml Oral.Susp) 30 ml PO Q6H PRN PRN Reason: Heartburn/Nausea Last Admin: 11/27/23 10:48 Dose: 30 ml Aripiprazole (Aripiprazole Er 300 Mg Suser.Syr) 300 mg IM Q28D MANAS Last Admin: 12/10/23 17:14 Dose: 300 mg Benzocaine (Throat Lozenge, Medicated Lozenge) 1 lozenge MUCOUS MEM Q2H PRN PRN Reason: Sore Throat Last Admin: 12/30/23 20:59 Dose: 1 lozenge Benztropine Mesylate (Benztropine Mesylate 0.5 Mg Tablet) 0.5 mg PO TID PRN PRN Reason: Extrapyramidal Effects Glucose (Glucose Gel 15 Gm Gel..Gram.) 15 gm PO Q15M PRN; Protocol PRN Reason: per Hypoglycemia Standing Ord. Guaifenesin/Dextromethorphan (Guaifenesin Dm 100/10/5 Ml 5 Ml Syrup) 5 ml PO Q4H PRN PRN Reason: Cough Last Admin: 01/01/24 21:56 Dose: 5 ml Hydroxyzine HCl (Hydroxyzine Hcl 25 Mg Tablet) 25 mg PO Q6H PRN PRN Reason: Anxiety Last Admin: 12/30/23 20:59 Dose: 25 mg Dextrose (D10) 250 mls @ 750 mls/hr IV Q15M PRN; Protocol PRN Reason: per Hypoglycemia Standing Ord. Insulin Glargine (Insulin Glargine,Hum.Rec.Anlog 100 Unit/Ml 10 Ml Vial) 20 unit SUBCUT BEDTIME MANAS Last Admin: 01/01/24 21:55 Dose: 20 unit Insulin Human Lispro (Insulin Lispro 100 Unit/Ml 3 Ml Vial) 0 unit SUBCUT QIDACHS [facility]; Protocol Last Admin: 01/02/24 08:21 Dose: Not Given Lamotrigine (Lamotrigine 100 Mg Tablet) 150 mg PO BEDTIME MANAS Last Admin: 01/01/24 21:56 Dose: 150 mg Levothyroxine Sodium (Levothyroxine Sodium 150 Mcg Tablet) 150 mcg PO DAILY@0800 [facility] Last Admin: 01/02/24 08:01 Dose: 150 mcg Magnesium Hydroxide (Milk Of Magnesia 30 Ml Oral.Susp) 30 ml PO DAILY PRN PRN Reason: Constipation Memantine (Memantine Hcl 5 Mg Tablet) 5 mg PO BID [facility] Last Admin: 01/02/24 08:01 Dose: 5 mg Metformin HCl (Metformin Hcl Er 500 Mg Tab.Er.24h) 1,000 mg PO DAILY@1700 [facility] Last Admin: 01/01/24 17:37 Dose: 1,000 mg Ondansetron HCl (Ondansetron Odt 8 Mg Tab.Rapdis) 8 mg TRANSLINGU Q8H PRN PRN Reason: Nausea and Vomiting Last Admin: 12/31/23 08:39 Dose: 8 mg Sertraline HCl (Sertraline Hcl 100 Mg Tablet) 100 mg PO DAILY [facility] Last Admin: 01/02/24 08:01 Dose: 100 mg Simethicone (Simethicone 80 Mg Tab.Chew) 80 mg PO QIDWMHS PRN PRN Reason: Gas Trazodone HCl (Trazodone Hcl 50 Mg Tablet) 50 mg PO BEDTIME MRX1 PRN PRN Reason: Insomnia Last Admin: 01/01/24 21:56 Dose: 50 mg Allergies Allergies Allergy/AdvReac Type Severity Reaction Status Date / Time amoxicillin [AMOXICILLIN] Allergy Mild VOMITING/ABD Verified 09/10/23 19:44 PAIN Assessment & Plan Assessment & Plan (1) Schizoaffective disorder: Status: Acute Code(s): F25.9 - Schizoaffective disorder, unspecified (2) Hypothyroidism: Status: Acute Code(s): E03.9 - Hypothyroidism, unspecified (3) Type 2 diabetes mellitus: Status: Acute Code(s): E11.9 - Type 2 diabetes mellitus without complications (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 Plan: CV 15 minute safety checks Continue home medications: Haldol 10mg PO daily Synthroid 200mcg PO daily Obtain labs; A1C/POCs Obtain collateral from sister Obtain records from last hospitalization. MOCA Referral for [facility] services if patient is agreeable. encourage medication compliance;consider VARGAS discharge planning 09/11: Elevated fasting blood sugar elevated hemoglobin A1c 9.2 med consult placed put in point of care needed will start metformin Would benefit from clarity over recent hospitalization what this were done details regarding treatment continue Haldol unclear if patient has Healthcare proxy his [place] was low slowed cognition with poor details in depth at times during blankly regarding making judgments Unclear if any of this relates to past coma or 2 hypothyroidism. He does seem more impaired than when last seen unclear when last imaging was. Continue Haldol sitter neuro indira involvement regarding diagnostic picture. Patient does remain paranoid blunted suspicious apathetic. He might benefit from longer- term placement if available and appropriate at a later time involved [facility] involvement would be quite helpful 09/12: cont haldol get records ? hcp ? start antidep unclear hx 09/13: Keeping to self. More talkative today. Pt concerned he will be transferred to [facility]. Pt stated, The paper I signed yesterday. Are you going to send me back to the last hospital? That place was horrible . Pt was educated he signed a release of information with Dr. Gonzalez to obtain records from [facility]. Pt was given a copy of the release he signed. Despite this, pt continues to be anxious about being transferred. Pt denies SI/HI/VH/AH. 09/14: Keeping to self. active on unit. showered. Pt reports feeling alright today; pt reports he is worried about where I'm going to go . Pt continues concerned he will be transferred to [facility]. Pt denies SI/HI/VH/AH. 09/15:Pt reports feeling alright today; pt continues to report he is worried about where I'm going to go . Responding with brief responses. Guarded. Observed standing in one place for a long period of time. Appears confused. Pt denies SI/HI/VH/AH. T/W spoke to patient's sister, Ros, with patients verbal consent. Ros reports concerns regarding patients ability to make decisions regarding his mental and physical health. She plans on contacting legal advice on obtaining guardianship of patient. 09/16:Patient's presents similar to yesterday's presentation. Responding with brief responses. Guarded. Observed standing in one place for a long period of time, when asked what he is doing, pt stated, I don't know . Pt reports he plans on contacting his sister today and try to convince her for me to stay there . Pt denies SI/HI/VH/AH. Continue current tx plan. 09/17: brief responses. Guarded. 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 Pt denies SI/HI/VH/AH. T/W and Dr. Gonzalez spoke to patient's sister, Ros. Ros stated being [place] HCP and plans on finding document. She plans on coming to the hospital on Saturday to be present for [facility] intake. 09/21: No changes 09/22:Patient flat apathetic difficult insight and judgment his sister is healthcare proxy if needed patient is accepting medical treatment Referral to [facility] 09/23:Considers starting Haldol Decanoate patient is agreeable superficially difficulty with exec fx was seen [facility] 09/24:Pt seen in f/u mood flat dysphoric difficulty engaging in conversation preoccupied with thought he wont be living with family thing slowed apathetic no clear response with namenda ? some improvement inc lamictal start low dose sertraline inc lamictal ck tsh 09/25:Start Abilify as augmentation with Haldol see if can be more stimulating regarding depressed mood apathetic limited engagement sertraline 50 mg Lamictal 25 b.i.d. referral to [facility] which would have structure unclear if patient can engage with this he remains quite depressed has delusional beliefs regarding housing and that things have been done he has repeatedly tried to reach out to his sister denies active SI needs much help dressing talking with others encouragement to eat severe thought blocking Abilify might be more stimulating than Haldol which can be more dulling 09/26:Abilify started sertraline Lamictal encouraged step-down to [facility] encourage reality orientation denies active SI 09/27: Continue current regimen and plans 09/28: Continue current regimen and plans. 09/29: Referral to [facility] increase Abilify to 5 mg daily eventually try and taper Haldol sertraline 50 mg daily 09/30:Increase Abilify to 10 mg lower Haldol to 7 mg continue sertraline and Lamictal 10/01:Abilify increased to 10 mg continue to taper Haldol sertraline 100 mg Lamictal increased to 75 mg patient apathetic withdrawn difficulty with placement some paranoia continues difficulty with decision making at times. Not physically aggressive internally preoccupied seems somewhat improved with Abilify sertraline Continue discharge planning 10/02:Patient somewhat blunted flat slowed thinking during the day times staring. Change Abilify to 10 mg at bedtime. Scheduled Haldol will lowered to 2.5 mg Continue sertraline 100 mg Namenda 5 b.i.d. 10/03:Haldol discontinued modafinil low-dose monitor for psychosis or agitation continue discharge planning 10/06: May need to firm healthcare proxy calls have been placed to sister to try to help in discharge planning. Referrals made. Patient cooperative with care 10/07:Pharmacy ordering Abilify maintain a increase modafinil 100 mg patient remains flat passive depressed some improvement noted no current paranoia noted continue discharge planning no current safe discharge plan 10/08: Increase Lamictal 100 mg Abilify Maintena 400 mg hold modafinil unclear if was overly stimulating patient continues to present internally preoccupied. 10/09:Healthcare proxy invoked discharge planning continue Lamictal Abilify pending maintain a 10/10:Healthcare proxy invoked new CV signed discharge planning. 10/11 keep same treatment 10/12 keep same treatment 10/13: Continue plan of care Lamictal Abilify discharge planning sertraline 10/14: stable. continue current mgmt. 10/15: stable. continue current mgmt. 15: stable presentation. continue current mgmt. 16: as for yesterday. 10/18: no changes. 10/19: stabel, safe. no change. 10/20: no change in presentation. calm, cooperative. active on unit, social with select peers, attending groups. Pt reports feeling alright . denies SI/HI/VH/AH. Social work waiting to hear from possible placement location. Continue current tx plan. 10/21: continue current tx plan. awaiting placement. 10/22: calm, cooperative. active on unit, social with select peers, attending groups. Pt reports feeling good ; pt stated, I'm waiting to see where I'm going . denies SI/HI/VH/AH. Showered with encouragement. 10/23: continue current tx plan. 10/24: calm, cooperative. active on unit, social with select peers, attending groups. Pt reports feeling good ; pt stated, I just want a place to live . 10/25- likely at baseline for him- CTP 10/26 CTP likely needs placement 10/27: continue current tx plan. awaiting placement. 10/28: Similar to yesterday. No change in presentation. 10/29: Pt reports feeling good ;pt stated, just waiting for a place to live . denies any issues at this time. 10/30: calm, cooperative. active on unit, social with select peers, attending groups. Pt reports feeling worried about where I am going to live . denies any issues at this time. 10/21: no change in presentation. continue current tx plan. 11/01: continue current management and treatment plan. 11/02: Continue current management and treatment plan. 11/03: Continue current management and treatment plan. 11/04: Active on unit. calm, cooperative. social with select peers, attending groups. denies any issues at this time. He reports sleeping well. Pt reports he would be interested in applying for [facility] services; social work aware. 11/05: Active on unit. calm, cooperative. social with select peers, attending groups. denies any issues at this time. Pt reports feeling okay ; he reports anxiety regarding placement. Continue current tx plan. 11/07/23 [facility]H referral has appropriate concerns re living stuation cont abilify lamictal 11/08/23 Pt cooperative with care d/c planning working with sw cont d/c planning cont lamictal abilify 11/12/23 Patient increasingly despairing aware of no clear discharge plan periods needs cuing for much functioning limited social engaged needs help regarding diabetes and medication compliance reportedly had been rejected by multiple rest homes patient not threatening intermittently hopeless helpless very limited family contact at this time 11/13/23 pt flat depressed hopeless helpless unable to fx without structure 11/15 continue tx. 11/16 continue tx. 11/18/2023 Continue plan of care referral to [facility] TSH low will decrease levothyroxine 11/19/23 Pt flat dysphor ic inc hopeless helpless lamictal 150 hs dec levothyroxine 150 d/c planning cont 11/20/23 lamictal inc d/c planning [facility] referral 12/02/2023 Continue Lamictal Abilify patient cooperative with care gets despairing at times regarding lack of family support problematic discharge planning in relationship to finding suitable structured place to live 12/02: Social with peers. Per nursing, pt did not sleep last night. Pt reports he did not sleeping because he wasn't tired but feel okay ; ordered Ativan 1mg PO bedtime for tonight, pt aware. 12/03: In bed sleeping, pt reports he is catching up on sleep from the night before. Calm, cooperative. T/W and flow worker, Billie, with pt to discuss possibly going to the [facility]. Pt reports he would like to call his sister and speak to her before deciding. DC Ativan. 12/04: Active on unit, social with peers. attending groups. T/W and flow workerBillie, met with pt to discuss discharge plan. Pt reports he doesn't know if he would want to go to a homeless halfway; he states he would rather live on the street because I've done it before . Pt encouraged to consider benefits of going to a halfway with the winter months coming; he agreed to doing phone intake with family welfare social work professor on Saturday with [facility]. 12/05: Pt presents similar to yesterday. Continues to perseverate about [facility] being a halfway and not a program; He continues to agree to do phone intake on Saturday. Discussed VARGAS, pt reports he want time to consider d/t not liking needles . 12/08: Pt had phone interview with [facility], however, after multiple attempts at calling them, no one at [facility] picked up the phone to conduct interview. flow worker to get into contact with them again. Pt denies any issues at this time. 12/09: Active on unit, social with peers. Pt denies any issues at this time. Patient agreed to receiving Abilify Maintena; risks/benefits reviewed. Waiting on placement. 12/10: Patient received Abilify Maintena yesterday. He denies any side effects. Pleasant. Waiting on placement. 12/11: continue current tx plan. 12/12: similar to days prior. waiting on placement. continue current tx plan. 12/13: appearing more depressed or demoralized. notes lots of people come and go. continue current mgmt. 12/14: same as for yesterday: find me a place to live? continue current mgmt. 12/15: out and about more. otherwise stable. continue current mgmt. 12/16: continue current tx plan. 12/17: continue current tx plan. 12/18: awaiting placement. denies any issues. 12/19: Pt reports feeling alright ; Social work continues to work on placement. Pt denies any issues at this time. Pt reports sleeping well. 12/20: Continue plan of care 12/21: Continue plan of care 12/22: continue current tx plan. 12/23: continue tx plan. 12/24: continue tx plan. 12/25: similar to days prior. waiting on placement. 12/26: Continue current tx plan. 12/27: Continue current management and treatment plan. 12/28: Continue current management and treatment plan. 12/29: In bed, tested positive for Covid. Vomited x1 per nursing. Pt reports feeling okay ; sleeping most of shift. Continue current tx plan. 12/30: Pt reports feeling okay ; continues on isolation d/t being Covid positive. Utilizing IPad. Pt reports sleeping well. denies SI/HI/VH/AH. Has not vomited today. 12/31: Pt reports feeling alright ; pt stated, I still have a stuffy nose, cough and headache but I'm starting to feel better . continues on isolation. denies other issues at this time. Continue current tx plan. 01/01: pt reports covid symptoms are improving. continues waiting on placement. Reason for continued inpatient stay Substantial Risk for: other Time Spent With Patient Time: Total time managing care of this patient today _20___ minutes.
[2024-01-02] MEDS: guaiFENesin DM 100/10/5 ML 5 ML SYRUP PO (11:46)
[2024-01-02 11:53] LABS: Glucose, Whole Blood 120 mg/dL (60-115)
[2024-01-02 16:52] LABS: Glucose, Whole Blood 116 mg/dL (60-115)
[2024-01-02] MEDS: metFORMIN HCl ER 500 MG TAB.ER.24H 1000 MG PO (17:23)
[2024-01-02 19:40] VITALS: BP 137/76; PULSE 86; RESP 16; TEMP 36.6; O2SAT 96
[2024-01-02 20:10] LABS: Glucose, Whole Blood 145 mg/dL (60-115)
[2024-01-02] MEDS: Insulin Glargine,Hum.rec.anlog 100 UNIT/ML 10 ML VIAL 20 UNIT SUBCUT (20:44)
[2024-01-02] MEDS: lamoTRIgine 100 MG TABLET 150 MG PO (20:45)
[2024-01-03 07:43] LABS: Glucose, Whole Blood 108 mg/dL (60-115)
[2024-01-03] MEDS: Memantine HCl 5 MG TABLET PO ×2 (08:59→20:43)
[2024-01-03] MEDS: Levothyroxine Sodium 150 MCG TABLET PO (09:00)
[2024-01-03] MEDS: Sertraline HCL 100 MG TABLET PO (09:00)
--- NOTE | 2024-01-03 09:21 | P.PNPSI_ITS ---
Subjective Subjective Date of Service: 01/03/24 Reason For Visit: paranoia cognitive impairment Subjective Notes: Conditional Voluntary Interim History: Pt reports feeling good today. He continues on isolation d/t Covid. Pt reports sleeping well. Continues waiting on placement. Medication Compliance: Yes Side effects from medications: No Review of Systems Constitutional: Reports as per HPI Eyes: Reports as per HPI Reports as per HPI Cardiovascular: Reports as per HPI Respiratory: Reports as per HPI Gastrointestinal: Reports as per HPI Genitourinary: Reports as per HPI Musculoskeletal: Reports as per HPI Skin/Breast: Reports as per HPI Reports as per HPI Psychiatric: Reports as per HPI Endocrine: Reports as per HPI Hematologic/Lymphatic: Reports as per HPI Allergic/Immunologic: Reports as per HPI 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: Special Needs Caregiver Impaired Diagnostics Vital Signs (24Hr): Vital Signs - 24 hr 01/02/24 19:40 Temperature 97.8 F Pulse Rate 86 Respiratory Rate 16 Blood Pressure 137/76 Pulse Oximetry 96 Oxygen Delivery Method Room Air BMI result Body Mass Index 32.3 Labs 09/10/23 20:00 01/02/24 07:51 Labs: Laboratory Results - last 48 hr 01/01/24 01/01/24 01/01/24 11:41 16:46 20:36 Creatinine Estim Creat Clear Calc Estimated GFR POC Glucose 111 167 H 124 H 01/02/24 01/02/24 01/02/24 07:39 07:51 11:47 Creatinine 0.82 Estim Creat Clear Calc 113.2 Estimated GFR > 60 POC Glucose 115 120 H 01/02/24 01/02/24 01/03/24 16:49 20:05 07:36 Creatinine Estim Creat Clear Calc Estimated GFR POC Glucose 116 H 145 H 108 Imaging Radiology Impressions: ITS Impressions Brain MRI 09/19/23 20:33 IMPRESSION: 1. No demonstrated acute intracranial abnormalities. 2. Chronic mild to moderate nonspecific white matter changes, most notably in the deep white matter of the right frontal lobe. Mild to moderate generalized cerebral volume loss. Medications Medications Current Medications Acetaminophen (Acetaminophen 325 Mg Tablet) 650 mg PO Q6H PRN PRN Reason: Headache/Pain Mild Scale (1-3) Last Admin: 01/01/24 08:45 Dose: 650 mg Al Hydroxide/Mg Hydroxide (Magnesium Hydrox/Alum Hydrox 30 Ml Oral.Susp) 30 ml PO Q6H PRN PRN Reason: Heartburn/Nausea Last Admin: 11/27/23 10:48 Dose: 30 ml Aripiprazole (Aripiprazole Er 300 Mg Suser.Syr) 300 mg IM Q28D [facility] Last Admin: 12/10/23 17:14 Dose: 300 mg Benzocaine (Throat Lozenge, Medicated Lozenge) 1 lozenge MUCOUS MEM Q2H PRN PRN Reason: Sore Throat Last Admin: 12/30/23 20:59 Dose: 1 lozenge Benztropine Mesylate (Benztropine Mesylate 0.5 Mg Tablet) 0.5 mg PO TID PRN PRN Reason: Extrapyramidal Effects Glucose (Glucose Gel 15 Gm Gel..Gram.) 15 gm PO Q15M PRN; Protocol PRN Reason: per Hypoglycemia Standing Ord. Guaifenesin/Dextromethorphan (Guaifenesin Dm 100/10/5 Ml 5 Ml Syrup) 5 ml PO Q4H PRN PRN Reason: Cough Last Admin: 01/02/24 11:46 Dose: 5 ml Hydroxyzine HCl (Hydroxyzine Hcl 25 Mg Tablet) 25 mg PO Q6H PRN PRN Reason: Anxiety Last Admin: 12/30/23 20:59 Dose: 25 mg Dextrose (D10) 250 mls @ 750 mls/hr IV Q15M PRN; Protocol PRN Reason: per Hypoglycemia Standing Ord. Insulin Glargine (Insulin Glargine,Hum.Rec.Anlog 100 Unit/Ml 10 Ml Vial) 20 unit SUBCUT BEDTIME [facility] Last Admin: 01/02/24 20:44 Dose: 20 unit Insulin Human Lispro (Insulin Lispro 100 Unit/Ml 3 Ml Vial) 0 unit SUBCUT QIDACHS [facility]; Protocol Last Admin: 01/03/24 08:59 Dose: Not Given Lamotrigine (Lamotrigine 100 Mg Tablet) 150 mg PO BEDTIME [facility] Last Admin: 01/02/24 20:45 Dose: 150 mg Levothyroxine Sodium (Levothyroxine Sodium 150 Mcg Tablet) 150 mcg PO DAILY@0800 [facility] Last Admin: 01/03/24 09:00 Dose: 150 mcg Magnesium Hydroxide (Milk Of Magnesia 30 Ml Oral.Susp) 30 ml PO DAILY PRN PRN Reason: Constipation Memantine (Memantine Hcl 5 Mg Tablet) 5 mg PO BID [facility] Last Admin: 01/03/24 08:59 Dose: 5 mg Metformin HCl (Metformin Hcl Er 500 Mg Tab.Er.24h) 1,000 mg PO DAILY@1700 [facility] Last Admin: 01/02/24 17:23 Dose: 1,000 mg Ondansetron HCl (Ondansetron Odt 8 Mg Tab.Rapdis) 8 mg TRANSLINGU Q8H PRN PRN Reason: Nausea and Vomiting Last Admin: 12/31/23 08:39 Dose: 8 mg Sertraline HCl (Sertraline Hcl 100 Mg Tablet) 100 mg PO DAILY [facility] Last Admin: 01/03/24 09:00 Dose: 100 mg Simethicone (Simethicone 80 Mg Tab.Chew) 80 mg PO QIDWMHS PRN PRN Reason: Gas Trazodone HCl (Trazodone Hcl 50 Mg Tablet) 50 mg PO BEDTIME MRX1 PRN PRN Reason: Insomnia Last Admin: 01/01/24 21:56 Dose: 50 mg Allergies Allergies Allergy/AdvReac Type Severity Reaction Status Date / Time amoxicillin [AMOXICILLIN] Allergy Mild VOMITING/ABD Verified 09/10/23 19:44 PAIN Assessment & Plan Assessment & Plan (1) Schizoaffective disorder: Status: Acute Code(s): F25.9 - Schizoaffective disorder, unspecified (2) Hypothyroidism: Status: Acute Code(s): E03.9 - Hypothyroidism, unspecified (3) Type 2 diabetes mellitus: Status: Acute Code(s): E11.9 - Type 2 diabetes mellitus without complications (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 Plan: CV 15 minute safety checks Continue home medications: Haldol 10mg PO daily Synthroid 200mcg PO daily Obtain labs; A1C/POCs Obtain collateral from sister Obtain records from last hospitalization. MOCA Referral for DMH services if patient is agreeable. encourage medication compliance;consider VARGAS discharge planning 09/11: Elevated fasting blood sugar elevated hemoglobin A1c 9.2 med consult placed put in point of care needed will start metformin Would benefit from clarity over recent hospitalization what this were done details regarding treatment continue Haldol unclear if patient has Healthcare proxy his [place] was low slowed cognition with poor details in depth at times during blankly regarding making judgments Unclear if any of this relates to past coma or 2 hypothyroidism. He does seem more impaired than when last seen unclear when last imaging was. Continue Haldol sitter neuro indira involvement regarding diagnostic picture. Patient does remain paranoid blunted suspicious apathetic. He might benefit from longer- term placement if available and appropriate at a later time involved DMH involvement would be quite helpful 09/12: cont haldol get records ? hcp ? start antidep unclear hx 09/13: Keeping to self. More talkative today. Pt concerned he will be transferred to [facility]. Pt stated, The paper I signed yesterday. Are you going to send me back to the last hospital? That place was horrible . Pt was educated he signed a release of information with Dr. Gonzalez to obtain records from [facility]. Pt was given a copy of the release he signed. Despite this, pt continues to be anxious about being transferred. Pt denies SI/HI/VH/AH. 09/14: Keeping to self. active on unit. showered. Pt reports feeling alright today; pt reports he is worried about where I'm going to go . Pt continues concerned he will be transferred to [facility]. Pt denies SI/HI/VH/AH. 09/15:Pt reports feeling alright today; pt continues to report he is worried about where I'm going to go . Responding with brief responses. Guarded. Observed standing in one place for a long period of time. Appears confused. Pt denies SI/HI/VH/AH. T/W spoke to patient's sister, Ros, with patients verbal consent. Ros reports concerns regarding patients ability to make decisions regarding his mental and physical health. She plans on contacting legal advice on obtaining guardianship of patient. 09/16:Patient's presents similar to yesterday's presentation. Responding with brief responses. Guarded. Observed standing in one place for a long period of time, when asked what he is doing, pt stated, I don't know . Pt reports he plans on contacting his sister today and try to convince her for me to stay there . Pt denies SI/HI/VH/AH. Continue current tx plan. 09/17: brief responses. Guarded. 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 Pt denies SI/HI/VH/AH. T/W and Dr. Gonzalez spoke to patient's sister, Ros. Ros stated being [facility] HCP and plans on finding document. She plans on coming to the hospital on Saturday to be present for [facility] intake. 09/21: No changes 09/22:Patient flat apathetic difficult insight and judgment his sister is healthcare proxy if needed patient is accepting medical treatment Referral to [facility] 09/23:Considers starting Haldol Decanoate patient is agreeable superficially difficulty with exec fx was seen [facility] 09/24:Pt seen in f/u mood flat dysphoric difficulty engaging in conversation preoccupied with thought he wont be living with family thing slowed apathetic no clear response with namenda ? some improvement inc lamictal start low dose sertraline inc lamictal ck tsh 09/25:Start Abilify as augmentation with Haldol see if can be more stimulating regarding depressed mood apathetic limited engagement sertraline 50 mg Lamictal 25 b.i.d. referral to [facility] which would have structure unclear if patient can engage with this he remains quite depressed has delusional beliefs regarding housing and that things have been done he has repeatedly tried to reach out to his sister denies active SI needs much help dressing talking with others encouragement to eat severe thought blocking Abilify might be more stimulating than Haldol which can be more dulling 09/26:Abilify started sertraline Lamictal encouraged step-down to [facility] encourage reality orientation denies active SI 09/27: Continue current regimen and plans 09/28: Continue current regimen and plans. 09/29: Referral to [facility] increase Abilify to 5 mg daily eventually try and taper Haldol sertraline 50 mg daily 09/30:Increase Abilify to 10 mg lower Haldol to 7 mg continue sertraline and Lamictal 10/01:Abilify increased to 10 mg continue to taper Haldol sertraline 100 mg Lamictal increased to 75 mg patient apathetic withdrawn difficulty with placement some paranoia continues difficulty with decision making at times. Not physically aggressive internally preoccupied seems somewhat improved with Abilify sertraline Continue discharge planning 10/02:Patient somewhat blunted flat slowed thinking during the day times staring. Change Abilify to 10 mg at bedtime. Scheduled Haldol will lowered to 2.5 mg Continue sertraline 100 mg Namenda 5 b.i.d. 10/03:Haldol discontinued modafinil low-dose monitor for psychosis or agitation continue discharge planning 10/06: May need to firm healthcare proxy calls have been placed to sister to try to help in discharge planning. Referrals made. Patient cooperative with care 10/07:Pharmacy ordering Abilify maintain a increase modafinil 100 mg patient remains flat passive depressed some improvement noted no current paranoia noted continue discharge planning no current safe discharge plan 10/08: Increase Lamictal 100 mg Abilify Maintena 400 mg hold modafinil unclear if was overly stimulating patient continues to present internally preoccupied. 10/09:Healthcare proxy invoked discharge planning continue Lamictal Abilify pending maintain a 10/10:Healthcare proxy invoked new CV signed discharge planning. 10/11 keep same treatment 10/12 keep same treatment 10/13: Continue plan of care Lamictal Abilify discharge planning sertraline 10/14: stable. continue current mgmt. 10/15: stable. continue current mgmt. 10/16: stable presentation. continue current mgmt. 10/17: as for yesterday. 10/18: no changes. 10/19: stabel, safe. no change. 10/20: no change in presentation. calm, cooperative. active on unit, social with select peers, attending groups. Pt reports feeling alright . denies SI/HI/VH/AH. Social work waiting to hear from possible placement location. Continue current tx plan. 10/21: continue current tx plan. awaiting placement. 10/22: calm, cooperative. active on unit, social with select peers, attending groups. Pt reports feeling good ; pt stated, I'm waiting to see where I'm going . denies SI/HI/VH/AH. Showered with encouragement. 10/23: continue current tx plan. 10/24: calm, cooperative. active on unit, social with select peers, attending groups. Pt reports feeling good ; pt stated, I just want a place to live . 10/25- likely at baseline for him- CTP 10/26 CTP likely needs placement 10/27: continue current tx plan. awaiting placement. 10/28: Similar to yesterday. No change in presentation. 10/29: Pt reports feeling good ;pt stated, just waiting for a place to live . denies any issues at this time. 10/30: calm, cooperative. active on unit, social with select peers, attending groups. Pt reports feeling worried about where I am going to live . denies any issues at this time. 10/21: no change in presentation. continue current tx plan. 11/01: continue current management and treatment plan. 11/02: Continue current management and treatment plan. 11/03: Continue current management and treatment plan. 11/04: Active on unit. calm, cooperative. social with select peers, attending groups. denies any issues at this time. He reports sleeping well. Pt reports he would be interested in applying for DMH services; social work aware. 11/05: Active on unit. calm, cooperative. social with select peers, attending groups. denies any issues at this time. Pt reports feeling okay ; he reports anxiety regarding placement. Continue current tx plan. 11/07/23 DMH referral has appropriate concerns re living stuation cont abilify lamictal 11/08/23 Pt cooperative with care d/c planning working with cont d/c planning cont lamictal abilify 11/12/23 Patient increasingly despairing aware of no clear discharge plan periods needs cuing for much functioning limited social engaged needs help regarding diabetes and medication compliance reportedly had been rejected by multiple rest homes patient not threatening intermittently hopeless helpless very limited family contact at this time 11/13/23 pt flat depressed hopeless helpless unable to fx without structure 11/15 continue tx. 11/16 continue tx. 11/18/2023 Continue plan of care referral to [facility] TSH low will decrease levothyroxine 11/19/23 Pt flat dysphor ic inc hopeless helpless lamictal 150 hs dec levothyroxine 150 d/c planning cont 11/20/23 lamictal inc d/c planning [facility] referral 12/02/2023 Continue Lamictal Abilify patient cooperative with care gets despairing at times regarding lack of family support problematic discharge planning in relationship to finding suitable structured place to live 12/02: Social with peers. Per nursing, pt did not sleep last night. Pt reports he did not sleeping because he wasn't tired but feel okay ; ordered Ativan 1mg PO bedtime for tonight, pt aware. 12/03: In bed sleeping, pt reports he is catching up on sleep from the night before. Calm, cooperative. T/W and poultry husbandry worker, Billie, with pt to discuss possibly going to the [facility]. Pt reports he would like to call his sister and speak to her before deciding. DC Ativan. 12/04: Active on unit, social with peers. attending groups. T/W and poultry husbandry workerBillie, met with pt to discuss discharge plan. Pt reports he doesn't know if he would want to go to a homeless residential; he states he would rather live on the street because I've done it before . Pt encouraged to consider benefits of going to a residential with the winter months coming; he agreed to doing phone intake with social media specialist on Saturday with [facility]. 12/05: Pt presents similar to yesterday. Continues to perseverate about [facility] being a residential and not a program; He continues to agree to do phone intake on Saturday. Discussed VARGAS, pt reports he want time to consider d/t not liking needles . 12/08: Pt had phone interview with [facility], however, after multiple attempts at calling them, no one at [facility] picked up the phone to conduct interview. poultry husbandry worker to get into contact with them again. Pt denies any issues at this time. 12/09: Active on unit, social with peers. Pt denies any issues at this time. Patient agreed to receiving Abilify Maintena; risks/benefits reviewed. Waiting on placement. 12/10: Patient received Abilify Maintena yesterday. He denies any side effects. Pleasant. Waiting on placement. 12/11: continue current tx plan. 12/12: similar to days prior. waiting on placement. continue current tx plan. 12/13: appearing more depressed or demoralized. notes lots of people come and go. continue current mgmt. 12/14: same as for yesterday: find me a place to live? continue current mgmt. 12/15: out and about more. otherwise stable. continue current mgmt. 12/16: continue current tx plan. 12/17: continue current tx plan. 12/18: awaiting placement. denies any issues. 12/19: Pt reports feeling alright ; Social work continues to work on placement. Pt denies any issues at this time. Pt reports sleeping well. 12/20: Continue plan of care 12/21: Continue plan of care 12/22: continue current tx plan. 12/23: continue tx plan. 12/24: continue tx plan. 12/25: similar to days prior. waiting on placement. 12/26: Continue current tx plan. 12/27: Continue current management and treatment plan. 12/28: Continue current management and treatment plan. 12/29: In bed, tested positive for Covid. Vomited x1 per nursing. Pt reports feeling okay ; sleeping most of shift. Continue current tx plan. 12/30: Pt reports feeling okay ; continues on isolation d/t being Covid positive. Utilizing IPad. Pt reports sleeping well. denies SI/HI/VH/AH. Has not vomited today. 12/31: Pt reports feeling alright ; pt stated, I still have a stuffy nose, cough and headache but I'm starting to feel better . continues on isolation. denies other issues at this time. Continue current tx plan. 01/01: pt reports covid symptoms are improving. continues waiting on placement. 01/02: Continue tx plan. Reason for continued inpatient stay Substantial Risk for: other (waiting on placement.) Time Spent With Patient Time: Total time managing care of this patient today _20___ minutes.
[2024-01-03 12:13] LABS: Glucose, Whole Blood 114 mg/dL (60-115)
[2024-01-03] MEDS: metFORMIN HCl ER 500 MG TAB.ER.24H 1000 MG PO (17:01)
[2024-01-03 17:06] LABS: Glucose, Whole Blood 150 mg/dL (60-115)
[2024-01-03 20:00] VITALS: BP 141/79; PULSE 85; RESP 18; TEMP 36.9; O2SAT 95
[2024-01-03] MEDS: lamoTRIgine 100 MG TABLET 150 MG PO (20:43)
[2024-01-03] MEDS: Insulin Glargine,Hum.rec.anlog 100 UNIT/ML 10 ML VIAL 20 UNIT SUBCUT (20:43)
[2024-01-03] MEDS: Insulin Lispro 100 UNIT/ML 3 ML VIAL SUBCUT (20:44)
[2024-01-03 20:56] LABS: Glucose, Whole Blood 151 mg/dL (60-115)
[2024-01-04 07:50] VITALS: BP 108/59; PULSE 79; RESP 14; TEMP 37; O2SAT 95
[2024-01-04 07:51] LABS: Glucose, Whole Blood 119 mg/dL (60-115)
--- NOTE | 2024-01-04 08:02 | HO.PSYCHPN ---
Subjective Subjective Date of Service: 01/04/24 Reason For Visit: paranoia cognitive impairment Interim History: Pt reports feeling good today. Denies any COVID symptoms x 2 days. Reports sleep, energy and appetite good. Denies depression. Feels safe. Medication Compliance: Yes Side effects from medications: No Attending Groups: No Review of Systems Acute medical concerns: No Review of Systems Review of Systems denies congestion, cough or any respiratory symptoms Mental Status Exam Mental Status Exam Narrative: ANte room eating lunch. The patient is blunted with poverty of content. Some suspiciousness. Denied hallucinations. Denied SI or HI. Difficulty with decision-making impaired insight judgment Diagnostics Vital Signs (24Hr): Vital Signs - 24 hr 01/03/24 20:00 Temperature 98.4 F Pulse Rate 85 Respiratory Rate 18 Blood Pressure 141/79 H Pulse Oximetry 95 Oxygen Delivery Method Room Air BMI result Body Mass Index 32.3 Labs 09/10/23 20:00 01/02/24 07:51 Labs: Laboratory Results - last 48 hr 01/02/24 01/02/24 01/02/24 07:51 11:47 16:49 Creatinine 0.82 Estim Creat Clear Calc 113.2 Estimated GFR > 60 POC Glucose 120 H 116 H 01/02/24 01/03/24 01/03/24 20:05 07:36 12:07 Creatinine Estim Creat Clear Calc Estimated GFR POC Glucose 145 H 108 114 01/03/24 01/03/24 01/04/24 17:00 20:37 07:45 Creatinine Estim Creat Clear Calc Estimated GFR POC Glucose 150 H 151 H 119 H Imaging Radiology Impressions: ITS Impressions Brain MRI 09/19/23 20:33 IMPRESSION: 1. No demonstrated acute intracranial abnormalities. 2. Chronic mild to moderate nonspecific white matter changes, most notably in the deep white matter of the right frontal lobe. Mild to moderate generalized cerebral volume loss. Medications Medications Current Medications Acetaminophen (Acetaminophen 325 Mg Tablet) 650 mg PO Q6H PRN PRN Reason: Headache/Pain Mild Scale (1-3) Last Admin: 01/01/24 08:45 Dose: 650 mg Al Hydroxide/Mg Hydroxide (Magnesium Hydrox/Alum Hydrox 30 Ml Oral.Susp) 30 ml PO Q6H PRN PRN Reason: Heartburn/Nausea Last Admin: 11/27/23 10:48 Dose: 30 ml Aripiprazole (Aripiprazole Er 300 Mg Suser.Syr) 300 mg IM Q28D [facility] Last Admin: 12/10/23 17:14 Dose: 300 mg Benzocaine (Throat Lozenge, Medicated Lozenge) 1 lozenge MUCOUS MEM Q2H PRN PRN Reason: Sore Throat Last Admin: 12/30/23 20:59 Dose: 1 lozenge Benztropine Mesylate (Benztropine Mesylate 0.5 Mg Tablet) 0.5 mg PO TID PRN PRN Reason: Extrapyramidal Effects Glucose (Glucose Gel 15 Gm Gel..Gram.) 15 gm PO Q15M PRN; Protocol PRN Reason: per Hypoglycemia Standing Ord. Guaifenesin/Dextromethorphan (Guaifenesin Dm 100/10/5 Ml 5 Ml Syrup) 5 ml PO Q4H PRN PRN Reason: Cough Last Admin: 01/02/24 11:46 Dose: 5 ml Hydroxyzine HCl (Hydroxyzine Hcl 25 Mg Tablet) 25 mg PO Q6H PRN PRN Reason: Anxiety Last Admin: 12/30/23 20:59 Dose: 25 mg Dextrose (D10) 250 mls @ 750 mls/hr IV Q15M PRN; Protocol PRN Reason: per Hypoglycemia Standing Ord. Insulin Glargine (Insulin Glargine,Hum.Rec.Anlog 100 Unit/Ml 10 Ml Vial) 20 unit SUBCUT BEDTIME [facility] Last Admin: 01/03/24 20:43 Dose: 20 unit Insulin Human Lispro (Insulin Lispro 100 Unit/Ml 3 Ml Vial) 0 unit SUBCUT QIDACHS [facility]; Protocol Last Admin: 01/03/24 20:44 Dose: 2 unit Lamotrigine (Lamotrigine 100 Mg Tablet) 150 mg PO BEDTIME [facility] Last Admin: 01/03/24 20:43 Dose: 150 mg Levothyroxine Sodium (Levothyroxine Sodium 150 Mcg Tablet) 150 mcg PO DAILY@0800 [facility] Last Admin: 01/03/24 09:00 Dose: 150 mcg Magnesium Hydroxide (Milk Of Magnesia 30 Ml Oral.Susp) 30 ml PO DAILY PRN PRN Reason: Constipation Memantine (Memantine Hcl 5 Mg Tablet) 5 mg PO BID [facility] Last Admin: 01/03/24 20:43 Dose: 5 mg Metformin HCl (Metformin Hcl Er 500 Mg Tab.Er.24h) 1,000 mg PO DAILY@1700 [facility] Last Admin: 01/03/24 17:01 Dose: 1,000 mg Ondansetron HCl (Ondansetron Odt 8 Mg Tab.Rapdis) 8 mg TRANSLINGU Q8H PRN PRN Reason: Nausea and Vomiting Last Admin: 12/31/23 08:39 Dose: 8 mg Sertraline HCl (Sertraline Hcl 100 Mg Tablet) 100 mg PO DAILY [facility] Last Admin: 01/03/24 09:00 Dose: 100 mg Simethicone (Simethicone 80 Mg Tab.Chew) 80 mg PO QIDWMHS PRN PRN Reason: Gas Trazodone HCl (Trazodone Hcl 50 Mg Tablet) 50 mg PO BEDTIME MRX1 PRN PRN Reason: Insomnia Last Admin: 01/01/24 21:56 Dose: 50 mg Allergies Allergies Allergy/AdvReac Type Severity Reaction Status Date / Time amoxicillin [AMOXICILLIN] Allergy Mild VOMITING/ABD Verified 09/10/23 19:44 PAIN Assessment & Plan Assessment & Plan (1) Schizoaffective disorder: Status: Acute Code(s): F25.9 - Schizoaffective disorder, unspecified (2) Hypothyroidism: Status: Acute Code(s): E03.9 - Hypothyroidism, unspecified (3) Type 2 diabetes mellitus: Status: Acute Code(s): E11.9 - Type 2 diabetes mellitus without complications (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 Plan: CV 15 minute safety checks Continue home medications: Haldol 10mg PO daily Synthroid 200mcg PO daily Obtain labs; A1C/POCs Obtain collateral from sister Obtain records from last hospitalization. MOCA Referral for [facility] services if patient is agreeable. encourage medication compliance;consider VARGAS discharge planning 09/11: Elevated fasting blood sugar elevated hemoglobin A1c 9.2 med consult placed put in point of care needed will start metformin Would benefit from clarity over recent hospitalization what this were done details regarding treatment continue Haldol unclear if patient has Healthcare proxy his [place] was low slowed cognition with poor details in depth at times during blankly regarding making judgments Unclear if any of this relates to past coma or 2 hypothyroidism. He does seem more impaired than when last seen unclear when last imaging was. Continue Haldol sitter neuro indira involvement regarding diagnostic picture. Patient does remain paranoid blunted suspicious apathetic. He might benefit from longer-term placement if available and appropriate at a later time involved [facility] involvement would be quite helpful 09/12: cont haldol get records ? hcp ? start antidep unclear hx 09/13: Keeping to self. More talkative today. Pt concerned he will be transferred to [facility]. Pt stated, The paper I signed yesterday. Are you going to send me back to the last hospital? That place was horrible . Pt was educated he signed a release of information with Dr. Gonzalez to obtain records from [facility]. Pt was given a copy of the release he signed. Despite this, pt continues to be anxious about being transferred. Pt denies SI/HI/VH/AH. 09/14: Keeping to self. active on unit. showered. Pt reports feeling alright today; pt reports he is worried about where I'm going to go . Pt continues concerned he will be transferred to [facility]. Pt denies SI/HI/VH/AH. 09/15:Pt reports feeling alright today; pt continues to report he is worried about where I'm going to go . Responding with brief responses. Guarded. Observed standing in one place for a long period of time. Appears confused. Pt denies SI/HI/VH/AH. T/W spoke to patient's sister, Ros, with patients verbal consent. Ros reports concerns regarding patients ability to make decisions regarding his mental and physical health. She plans on contacting legal advice on obtaining guardianship of patient. 09/16:Patient's presents similar to yesterday's presentation. Responding with brief responses. Guarded. Observed standing in one place for a long period of time, when asked what he is doing, pt stated, I don't know . Pt reports he plans on contacting his sister today and try to convince her for me to stay there . Pt denies SI/HI/VH/AH. Continue current tx plan. 09/17: brief responses. Guarded. 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 Pt denies SI/HI/VH/AH. T/W and Dr. Gonzalez spoke to patient's sister, Ros. Ros stated being [facility] HCP and plans on finding document. She plans on coming to the hospital on Saturday to be present for [facility] intake. 09/21: No changes 09/22:Patient flat apathetic difficult insight and judgment his sister is healthcare proxy if needed patient is accepting medical treatment Referral to [facility] 09/23:Considers starting Haldol Decanoate patient is agreeable superficially difficulty with exec fx was seen [facility] 09/24:Pt seen in f/u mood flat dysphoric difficulty engaging in conversation preoccupied with thought he wont be living with family thing slowed apathetic no clear response with namenda ? some improvement inc lamictal start low dose sertraline inc lamictal ck tsh 09/25:Start Abilify as augmentation with Haldol see if can be more stimulating regarding depressed mood apathetic limited engagement sertraline 50 mg Lamictal 25 b.i.d. referral to [facility] which would have structure unclear if patient can engage with this he remains quite depressed has delusional beliefs regarding housing and that things have been done he has repeatedly tried to reach out to his sister denies active SI needs much help dressing talking with others encouragement to eat severe thought blocking Abilify might be more stimulating than Haldol which can be more dulling 09/26:Abilify started sertraline Lamictal encouraged step-down to [facility] encourage reality orientation denies active SI 09/27: Continue current regimen and plans 09/28: Continue current regimen and plans. 09/29: Referral to [facility] increase Abilify to 5 mg daily eventually try and taper Haldol sertraline 50 mg daily 09/30:Increase Abilify to 10 mg lower Haldol to 7 mg continue sertraline and Lamictal 10/01:Abilify increased to 10 mg continue to taper Haldol sertraline 100 mg Lamictal increased to 75 mg patient apathetic withdrawn difficulty with placement some paranoia continues difficulty with decision making at times. Not physically aggressive internally preoccupied seems somewhat improved with Abilify sertraline Continue discharge planning 10/02:Patient somewhat blunted flat slowed thinking during the day times staring. Change Abilify to 10 mg at bedtime. Scheduled Haldol will lowered to 2.5 mg Continue sertraline 100 mg Namenda 5 b.i.d. 10/03:Haldol discontinued modafinil low-dose monitor for psychosis or agitation continue discharge planning 10/06: May need to firm healthcare proxy calls have been placed to sister to try to help in discharge planning. Referrals made. Patient cooperative with care 10/07:Pharmacy ordering Abilify maintain a increase modafinil 100 mg patient remains flat passive depressed some improvement noted no current paranoia noted continue discharge planning no current safe discharge plan 10/08: Increase Lamictal 100 mg Abilify Maintena 400 mg hold modafinil unclear if was overly stimulating patient continues to present internally preoccupied. 10/09:Healthcare proxy invoked discharge planning continue Lamictal Abilify pending maintain a 10/10:Healthcare proxy invoked new CV signed discharge planning. 10/11 keep same treatment 10/12 keep same treatment 10/13: Continue plan of care Lamictal Abilify discharge planning sertraline 10/14: stable. continue current mgmt. 10/15: stable. continue current mgmt. 10/16: stable presentation. continue current mgmt. 10/17: as for yesterday. 10/18: no changes. 10/19: stabel, safe. no change. 10/20: no change in presentation. calm, cooperative. active on unit, social with select peers, attending groups. Pt reports feeling alright . denies SI/HI/VH/AH. Social work waiting to hear from possible placement location. Continue current tx plan. 10/21: continue current tx plan. awaiting placement. 10/22: calm, cooperative. active on unit, social with select peers, attending groups. Pt reports feeling good ; pt stated, I'm waiting to see where I'm going . denies SI/HI/VH/AH. Showered with encouragement. 10/23: continue current tx plan. 10/24: calm, cooperative. active on unit, social with select peers, attending groups. Pt reports feeling good ; pt stated, I just want a place to live . 10/25- likely at baseline for him- CTP 10/26 CTP likely needs placement 10/27: continue current tx plan. awaiting placement. 10/28: Similar to yesterday. No change in presentation. 10/29: Pt reports feeling good ;pt stated, just waiting for a place to live . denies any issues at this time. 10/30: calm, cooperative. active on unit, social with select peers, attending groups. Pt reports feeling worried about where I am going to live . denies any issues at this time. 10/21: no change in presentation. continue current tx plan. 11/01: continue current management and treatment plan. 11/02: Continue current management and treatment plan. 11/03: Continue current management and treatment plan. 11/04: Active on unit. calm, cooperative. social with select peers, attending groups. denies any issues at this time. He reports sleeping well. Pt reports he would be interested in applying for [facility] services; social work aware. 11/05: Active on unit. calm, cooperative. social with select peers, attending groups. denies any issues at this time. Pt reports feeling okay ; he reports anxiety regarding placement. Continue current tx plan. 11/07/23 [facility] referral has appropriate concerns re living stuation cont abilify lamictal 11/08/23 Pt cooperative with care d/c planning working with cont d/c planning cont lamictal abilify 11/12/23 Patient increasingly despairing aware of no clear discharge plan periods needs cuing for much functioning limited social engaged needs help regarding diabetes and medication compliance reportedly had been rejected by multiple rest homes patient not threatening intermittently hopeless helpless very limited family contact at this time 11/13/23 pt flat depressed hopeless helpless unable to fx without structure 11/15 continue tx. 11/16 continue tx. 11/18/2023 Continue plan of care referral to [facility] TSH low will decrease levothyroxine 11/19/23 Pt flat dysphor ic inc hopeless helpless lamictal 150 hs dec levothyroxine 150 d/c planning cont 11/20/23 lamictal inc d/c planning dmh referral 12/02/2023 Continue Lamictal Abilify patient cooperative with care gets despairing at times regarding lack of family support problematic discharge planning in relationship to finding suitable structured place to live 12/02: Social with peers. Per nursing, pt did not sleep last night. Pt reports he did not sleeping because he wasn't tired but feel okay ; ordered Ativan 1mg PO bedtime for tonight, pt aware. 12/03: In bed sleeping, pt reports he is catching up on sleep from the night before. Calm, cooperative. T/W and grain oilseed or pasture farm worker, Billie, with pt to discuss possibly going to the [facility]. Pt reports he would like to call his sister and speak to her before deciding. DC Ativan. 12/04: Active on unit, social with peers. attending groups. T/W and grain oilseed or pasture farm worker, Billie, met with pt to discuss discharge plan. Pt reports he doesn't know if he would want to go to a homeless long term; he states he would rather live on the street because I've done it before . Pt encouraged to consider benefits of going to a long term with the winter months coming; he agreed to doing phone intake with social media job titles on Saturday with [facility]. 12/05: Pt presents similar to yesterday. Continues to perseverate about [facility] being a long term and not a program; He continues to agree to do phone intake on Saturday. Discussed VARGAS, pt reports he want time to consider d/t not liking needles . 12/08: Pt had phone interview with [facility], however, after multiple attempts at calling them, no one at [facility] picked up the phone to conduct interview. grain oilseed or pasture farm worker to get into contact with them again. Pt denies any issues at this time. 12/09: Active on unit, social with peers. Pt denies any issues at this time. Patient agreed to receiving Abilify Maintena; risks/benefits reviewed. Waiting on placement. 12/10: Patient received Abilify Maintena yesterday. He denies any side effects. Pleasant. Waiting on placement. 12/11: continue current tx plan. 12/12: similar to days prior. waiting on placement. continue current tx plan. 12/13: appearing more depressed or demoralized. notes lots of people come and go. continue current mgmt. 12/14: same as for yesterday: find me a place to live? continue current mgmt. 12/15: out and about more. otherwise stable. continue current mgmt. 12/16: continue current tx plan. 12/17: continue current tx plan. 12/18: awaiting placement. denies any issues. 12/19: Pt reports feeling alright ; Social work continues to work on placement. Pt denies any issues at this time. Pt reports sleeping well. 12/20: Continue plan of care 12/21: Continue plan of care 12/22: continue current tx plan. 12/23: continue tx plan. 12/24: continue tx plan. 12/25: similar to days prior. waiting on placement. 12/26: Continue current tx plan. 12/27: Continue current management and treatment plan. 12/28: Continue current management and treatment plan. 12/29: In bed, tested positive for Covid. Vomited x1 per nursing. Pt reports feeling okay ; sleeping most of shift. Continue current tx plan. 12/30: Pt reports feeling okay ; continues on isolation d/t being Covid positive. Utilizing IPad. Pt reports sleeping well. denies SI/HI/VH/AH. Has not vomited today. 12/31: Pt reports feeling alright ; pt stated, I still have a stuffy nose, cough and headache but I'm starting to feel better . continues on isolation. denies other issues at this time. Continue current tx plan. 01/01: pt reports covid symptoms are improving. continues waiting on placement. 01/02: Continue tx plan. 01/04/24: no changes. Reason for continued inpatient stay Substantial Risk for: rapid decompensation Time Spent With Patient Time: Total time managing care of this patient today ____ minutes.
[2024-01-04] MEDS: Levothyroxine Sodium 150 MCG TABLET PO (08:40)
[2024-01-04] MEDS: Sertraline HCL 100 MG TABLET PO (08:40)
[2024-01-04] MEDS: Memantine HCl 5 MG TABLET PO ×2 (08:40→21:16)
[2024-01-04 12:00] LABS: Glucose, Whole Blood 115 mg/dL (60-115)
[2024-01-04 16:06] LABS: COVID-19 Test Positive (Negative); IDNOW Serial# 152EDE1D
[2024-01-04] MEDS: metFORMIN HCl ER 500 MG TAB.ER.24H 1000 MG PO (16:46)
[2024-01-04 16:49] LABS: Glucose, Whole Blood 149 mg/dL (60-115)
[2024-01-04 20:00] VITALS: BP 108/60; PULSE 79; RESP 14; TEMP 37; O2SAT 95
[2024-01-04 20:57] LABS: Glucose, Whole Blood 132 mg/dL (60-115)
[2024-01-04] MEDS: Insulin Glargine,Hum.rec.anlog 100 UNIT/ML 10 ML VIAL 20 UNIT SUBCUT (21:14)
[2024-01-04] MEDS: lamoTRIgine 100 MG TABLET 150 MG PO (21:15)
[2024-01-05 07:36] LABS: Glucose, Whole Blood 109 mg/dL (60-115)
[2024-01-05 07:43] VITALS: BP 125/76; PULSE 75; RESP 16; TEMP 36.7; O2SAT 96
[2024-01-05] MEDS: Sertraline HCL 100 MG TABLET PO (08:28)
[2024-01-05] MEDS: Levothyroxine Sodium 150 MCG TABLET PO (08:29)
[2024-01-05] MEDS: Memantine HCl 5 MG TABLET PO ×2 (08:29→22:19)
--- NOTE | 2024-01-05 10:25 | P.PNPSI_ITS ---
Subjective Subjective Date of Service: 01/05/24 Reason For Visit: paranoia cognitive impairment Interim History: Pt reports feeling tired today. Reports runny nose and congesyion today. Reports sleep, energy and appetite ok. Denies depression. Feels safe. Medication Compliance: Yes Side effects from medications: No Attending Groups: No Review of Systems Acute medical concerns: No Review of Systems Review of Systems endorses congestion and runny nose Mental Status Exam Mental Status Exam Narrative: Ante room. Mask. The patient is blunted with poverty of content. No overt suspiciousness. Denied hallucinations. Denied SI or HI. Difficulty with decision-making impaired insight judgment Diagnostics Vital Signs (24Hr): Vital Signs - 24 hr 01/04/24 20:00 01/05/24 07:43 Temperature 98.6 F 98.1 F Pulse Rate 79 75 Respiratory Rate 14 16 Blood Pressure 108/60 125/76 Pulse Oximetry 95 96 Oxygen Delivery Method Room Air Room Air BMI result Body Mass Index 32.3 Labs 09/10/23 20:00 01/02/24 07:51 Labs: Laboratory Results - last 48 hr 01/03/24 01/03/24 01/03/24 12:07 17:00 20:37 POC Glucose 114 150 H 151 H COVID-19 ([facility]ARSHA) COVID-19 Clin Com 01/04/24 01/04/24 01/04/24 07:45 11:56 15:20 POC Glucose 119 H 115 COVID-19 (HARSHA) Positive A COVID-19 Clin Com See Note 01/04/24 01/04/24 01/05/24 16:45 20:53 07:29 POC Glucose 149 H 132 H 109 COVID-19 (HARSHA) COVID-19 Clin Com Imaging Radiology Impressions: ITS Impressions Brain MRI 09/19/23 20:33 IMPRESSION: 1. No demonstrated acute intracranial abnormalities. 2. Chronic mild to moderate nonspecific white matter changes, most notably in the deep white matter of the right frontal lobe. Mild to moderate generalized cerebral volume loss. Medications Medications Current Medications Acetaminophen (Acetaminophen 325 Mg Tablet) 650 mg PO Q6H PRN PRN Reason: Headache/Pain Mild Scale (1-3) Last Admin: 01/01/24 08:45 Dose: 650 mg Al Hydroxide/Mg Hydroxide (Magnesium Hydrox/Alum Hydrox 30 Ml Oral.Susp) 30 ml PO Q6H PRN PRN Reason: Heartburn/Nausea Last Admin: 11/27/23 10:48 Dose: 30 ml Aripiprazole (Aripiprazole Er 300 Mg Suser.Syr) 300 mg IM Q28D [facility] Last Admin: 12/10/23 17:14 Dose: 300 mg Benzocaine (Throat Lozenge, Medicated Lozenge) 1 lozenge MUCOUS MEM Q2H PRN PRN Reason: Sore Throat Last Admin: 12/30/23 20:59 Dose: 1 lozenge Benztropine Mesylate (Benztropine Mesylate 0.5 Mg Tablet) 0.5 mg PO TID PRN PRN Reason: Extrapyramidal Effects Glucose (Glucose Gel 15 Gm Gel..Gram.) 15 gm PO Q15M PRN; Protocol PRN Reason: per Hypoglycemia Standing Ord. Guaifenesin/Dextromethorphan (Guaifenesin Dm 100/10/5 Ml 5 Ml Syrup) 5 ml PO Q4H PRN PRN Reason: Cough Last Admin: 01/02/24 11:46 Dose: 5 ml Hydroxyzine HCl (Hydroxyzine Hcl 25 Mg Tablet) 25 mg PO Q6H PRN PRN Reason: Anxiety Last Admin: 12/30/23 20:59 Dose: 25 mg Dextrose (D10) 250 mls @ 750 mls/hr IV Q15M PRN; Protocol PRN Reason: per Hypoglycemia Standing Ord. Insulin Glargine (Insulin Glargine,Hum.Rec.Anlog 100 Unit/Ml 10 Ml Vial) 20 unit SUBCUT BEDTIME [facility] Last Admin: 01/04/24 21:14 Dose: 20 unit Insulin Human Lispro (Insulin Lispro 100 Unit/Ml 3 Ml Vial) 0 unit SUBCUT QIDACHS [facility]; Protocol Last Admin: 01/05/24 07:43 Dose: Not Given Lamotrigine (Lamotrigine 100 Mg Tablet) 150 mg PO BEDTIME [facility] Last Admin: 01/04/24 21:15 Dose: 150 mg Levothyroxine Sodium (Levothyroxine Sodium 150 Mcg Tablet) 150 mcg PO DAILY@0800 [facility] Last Admin: 01/05/24 08:29 Dose: 150 mcg Magnesium Hydroxide (Milk Of Magnesia 30 Ml Oral.Susp) 30 ml PO DAILY PRN PRN Reason: Constipation Memantine (Memantine Hcl 5 Mg Tablet) 5 mg PO BID [facility] Last Admin: 01/05/24 08:29 Dose: 5 mg Metformin HCl (Metformin Hcl Er 500 Mg Tab.Er.24h) 1,000 mg PO DAILY@1700 [facility] Last Admin: 01/04/24 16:46 Dose: 1,000 mg Ondansetron HCl (Ondansetron Odt 8 Mg Tab.Rapdis) 8 mg TRANSLINGU Q8H PRN PRN Reason: Nausea and Vomiting Last Admin: 12/31/23 08:39 Dose: 8 mg Sertraline HCl (Sertraline Hcl 100 Mg Tablet) 100 mg PO DAILY [facility] Last Admin: 01/05/24 08:28 Dose: 100 mg Simethicone (Simethicone 80 Mg Tab.Chew) 80 mg PO QIDWMHS PRN PRN Reason: Gas Trazodone HCl (Trazodone Hcl 50 Mg Tablet) 50 mg PO BEDTIME MRX1 PRN PRN Reason: Insomnia Last Admin: 01/01/24 21:56 Dose: 50 mg Allergies Allergies Allergy/AdvReac Type Severity Reaction Status Date / Time amoxicillin [AMOXICILLIN] Allergy Mild VOMITING/ABD Verified 09/10/23 19:44 PAIN Assessment & Plan Assessment & Plan (1) Schizoaffective disorder: Status: Acute Code(s): F25.9 - Schizoaffective disorder, unspecified (2) Hypothyroidism: Status: Acute Code(s): E03.9 - Hypothyroidism, unspecified (3) Type 2 diabetes mellitus: Status: Acute Code(s): E11.9 - Type 2 diabetes mellitus without complications (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 Plan: CV 15 minute safety checks Continue home medications: Haldol 10mg PO daily Synthroid 200mcg PO daily Obtain labs; A1C/POCs Obtain collateral from sister Obtain records from last hospitalization. MOCA Referral for DMH services if patient is agreeable. encourage medication compliance;consider VARGAS discharge planning 09/11: Elevated fasting blood sugar elevated hemoglobin A1c 9.2 med consult placed put in point of care needed will start metformin Would benefit from clarity over recent hospitalization what this were done details regarding treatment continue Haldol unclear if patient has Healthcare proxy his [place] was low slowed cognition with poor details in depth at times during blankly regarding making judgments Unclear if any of this relates to past coma or 2 hypothyroidism. He does seem more impaired than when last seen unclear when last imaging was. Continue Haldol sitter neuro indira involvement regarding diagnostic picture. Patient does remain paranoid blunted suspicious apathetic. He might benefit from longer- term placement if available and appropriate at a later time involved DMH involvement would be quite helpful 09/12: cont haldol get records ? hcp ? start antidep unclear hx 09/13: Keeping to self. More talkative today. Pt concerned he will be transferred to [facility]. Pt stated, The paper I signed yesterday. Are you going to send me back to the last hospital? That place was horrible . Pt was educated he signed a release of information with Dr. Gonzalez to obtain records from [facility]. Pt was given a copy of the release he signed. Despite this, pt continues to be anxious about being transferred. Pt denies SI/HI/VH/AH. 09/14: Keeping to self. active on unit. showered. Pt reports feeling alright today; pt reports he is worried about where I'm going to go . Pt continues concerned he will be transferred to [facility]. Pt denies SI/HI/VH/AH. 09/15:Pt reports feeling alright today; pt continues to report he is worried about where I'm going to go . Responding with brief responses. Guarded. Observed standing in one place for a long period of time. Appears confused. Pt denies SI/HI/VH/AH. T/W spoke to patient's sister, Ros, with patients verbal consent. Ros reports concerns regarding patients ability to make decisions regarding his mental and physical health. She plans on contacting legal advice on obtaining guardianship of patient. 09/16:Patient's presents similar to yesterday's presentation. Responding with brief responses. Guarded. Observed standing in one place for a long period of time, when asked what he is doing, pt stated, I don't know . Pt reports he plans on contacting his sister today and try to convince her for me to stay there . Pt denies SI/HI/VH/AH. Continue current tx plan. 09/17: brief responses. Guarded. 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 Pt denies SI/HI/VH/AH. T/W and Dr. Gonzalez spoke to patient's sister, Ros. Ros stated being [facility] HCP and plans on finding document. She plans on coming to the hospital on Saturday to be present for [facility] intake. 09/21: No changes 09/22:Patient flat apathetic difficult insight and judgment his sister is healthcare proxy if needed patient is accepting medical treatment Referral to [facility] 09/23:Considers starting Haldol Decanoate patient is agreeable superficially difficulty with exec fx was seen [facility] 09/24:Pt seen in f/u mood flat dysphoric difficulty engaging in conversation preoccupied with thought he wont be living with family thing slowed apathetic no clear response with namenda ? some improvement inc lamictal start low dose sertraline inc lamictal ck tsh 09/25:Start Abilify as augmentation with Haldol see if can be more stimulating regarding depressed mood apathetic limited engagement sertraline 50 mg Lamictal 25 b.i.d. referral to [facility] which would have structure unclear if patient can engage with this he remains quite depressed has delusional beliefs regarding housing and that things have been done he has repeatedly tried to reach out to his sister denies active SI needs much help dressing talking with others encouragement to eat severe thought blocking Abilify might be more stimulating than Haldol which can be more dulling 09/26:Abilify started sertraline Lamictal encouraged step-down to [facility] encourage reality orientation denies active SI 09/27: Continue current regimen and plans 09/28: Continue current regimen and plans. 09/29: Referral to [facility] increase Abilify to 5 mg daily eventually try and taper Haldol sertraline 50 mg daily 09/30:Increase Abilify to 10 mg lower Haldol to 7 mg continue sertraline and Lamictal 10/01:Abilify increased to 10 mg continue to taper Haldol sertraline 100 mg Lamictal increased to 75 mg patient apathetic withdrawn difficulty with placement some paranoia continues difficulty with decision making at times. Not physically aggressive internally preoccupied seems somewhat improved with Abilify sertraline Continue discharge planning 10/02:Patient somewhat blunted flat slowed thinking during the day times staring. Change Abilify to 10 mg at bedtime. Scheduled Haldol will lowered to 2.5 mg Continue sertraline 100 mg Namenda 5 b.i.d. 10/03:Haldol discontinued modafinil low-dose monitor for psychosis or agitation continue discharge planning 10/06: May need to firm healthcare proxy calls have been placed to sister to try to help in discharge planning. Referrals made. Patient cooperative with care 10/07:Pharmacy ordering Abilify maintain a increase modafinil 100 mg patient remains flat passive depressed some improvement noted no current paranoia noted continue discharge planning no current safe discharge plan 10/08: Increase Lamictal 100 mg Abilify Maintena 400 mg hold modafinil unclear if was overly stimulating patient continues to present internally preoccupied. 10/09:Healthcare proxy invoked discharge planning continue Lamictal Abilify pending maintain a 10/10:Healthcare proxy invoked new CV signed discharge planning. 10/11 keep same treatment 10/12 keep same treatment 10/13: Continue plan of care Lamictal Abilify discharge planning sertraline 10/14: stable. continue current mgmt. 10/15: stable. continue current mgmt. 10/16: stable presentation. continue current mgmt. 10/17: as for yesterday. 10/18: no changes. 10/19: stabel, safe. no change. 10/20: no change in presentation. calm, cooperative. active on unit, social with select peers, attending groups. Pt reports feeling alright . denies SI/HI/VH/AH. Social work waiting to hear from possible placement location. Continue current tx plan. 10/21: continue current tx plan. awaiting placement. 10/22: calm, cooperative. active on unit, social with select peers, attending groups. Pt reports feeling good ; pt stated, I'm waiting to see where I'm going . denies SI/HI/VH/AH. Showered with encouragement. 10/23: continue current tx plan. 10/24: calm, cooperative. active on unit, social with select peers, attending groups. Pt reports feeling good ; pt stated, I just want a place to live . 10/25- likely at baseline for him- CTP 10/26 CTP likely needs placement 10/27: continue current tx plan. awaiting placement. 10/28: Similar to yesterday. No change in presentation. 10/29: Pt reports feeling good ;pt stated, just waiting for a place to live . denies any issues at this time. 10/30: calm, cooperative. active on unit, social with select peers, attending groups. Pt reports feeling worried about where I am going to live . denies any issues at this time. 10/21: no change in presentation. continue current tx plan. 11/01: continue current management and treatment plan. 11/02: Continue current management and treatment plan. 11/03: Continue current management and treatment plan. 11/04: Active on unit. calm, cooperative. social with select peers, attending groups. denies any issues at this time. He reports sleeping well. Pt reports he would be interested in applying for [facility] services; social work aware. 11/05: Active on unit. calm, cooperative. social with select peers, attending groups. denies any issues at this time. Pt reports feeling okay ; he reports anxiety regarding placement. Continue current tx plan. 11/07/23 DM referral has appropriate concerns re living stuation cont abilify lamictal 11/08/23 Pt cooperative with care d/c planning working with cont d/c planning cont lamictal abilify 11/12/23 Patient increasingly despairing aware of no clear discharge plan periods needs cuing for much functioning limited social engaged needs help regarding diabetes and medication compliance reportedly had been rejected by multiple rest homes patient not threatening intermittently hopeless helpless very limited family contact at this time 11/13/23 pt flat depressed hopeless helpless unable to fx without structure 11/15 continue tx. 11/16 continue tx. 11/18/2023 Continue plan of care referral to [facility] TSH low will decrease levothyroxine 11/19/23 Pt flat dysphor ic inc hopeless helpless lamictal 150 hs dec levothyroxine 150 d/c planning cont 11/20/23 lamictal inc d/c planning dmh referral 12/02/2023 Continue Lamictal Abilify patient cooperative with care gets despairing at times regarding lack of family support problematic discharge planning in relationship to finding suitable structured place to live 12/02: Social with peers. Per nursing, pt did not sleep last night. Pt reports he did not sleeping because he wasn't tired but feel okay ; ordered Ativan 1mg PO bedtime for tonight, pt aware. 12/03: In bed sleeping, pt reports he is catching up on sleep from the night before. Calm, cooperative. T/W and tare worker, Billie, with pt to discuss possibly going to the [facility]. Pt reports he would like to call his sister and speak to her before deciding. DC Ativan. 12/04: Active on unit, social with peers. attending groups. T/W and tare worker, Billie, met with pt to discuss discharge plan. Pt reports he doesn't know if he would want to go to a homeless fci; he states he would rather live on the street because I've done it before . Pt encouraged to consider benefits of going to a fci with the winter months coming; he agreed to doing phone intake with transition social worker on Saturday with [facility]. 12/05: Pt presents similar to yesterday. Continues to perseverate about [facility] being a fci and not a program; He continues to agree to do phone intake on Saturday. Discussed VARGAS, pt reports he want time to consider d/t not liking needles . 12/08: Pt had phone interview with [facility], however, after multiple attempts at calling them, no one at [facility] picked up the phone to conduct interview. tare worker to get into contact with them again. Pt denies any issues at this time. 12/09: Active on unit, social with peers. Pt denies any issues at this time. Patient agreed to receiving Abilify Maintena; risks/benefits reviewed. Waiting on placement. 12/10: Patient received Abilify Maintena yesterday. He denies any side effects. Pleasant. Waiting on placement. 12/11: continue current tx plan. 12/12: similar to days prior. waiting on placement. continue current tx plan. 12/13: appearing more depressed or demoralized. notes lots of people come and go. continue current mgmt. 12/14: same as for yesterday: find me a place to live? continue current mgmt. 12/15: out and about more. otherwise stable. continue current mgmt. 12/16: continue current tx plan. 12/17: continue current tx plan. 12/18: awaiting placement. denies any issues. 12/19: Pt reports feeling alright ; Social work continues to work on placement. Pt denies any issues at this time. Pt reports sleeping well. 12/20: Continue plan of care 12/21: Continue plan of care 12/22: continue current tx plan. 12/23: continue tx plan. 12/24: continue tx plan. 12/25: similar to days prior. waiting on placement. 12/26: Continue current tx plan. 12/27: Continue current management and treatment plan. 12/28: Continue current management and treatment plan. 12/29: In bed, tested positive for Covid. Vomited x1 per nursing. Pt reports feeling okay ; sleeping most of shift. Continue current tx plan. 12/30: Pt reports feeling okay ; continues on isolation d/t being Covid positive. Utilizing IPad. Pt reports sleeping well. denies SI/HI/VH/AH. Has not vomited today. 12/31: Pt reports feeling alright ; pt stated, I still have a stuffy nose, cough and headache but I'm starting to feel better . continues on isolation. denies other issues at this time. Continue current tx plan. 01/01: pt reports covid symptoms are improving. continues waiting on placement. 01/02: Continue tx plan. 01/05/24: no changes. Reason for continued inpatient stay Substantial Risk for: rapid decompensation Time Spent With Patient Time: Total time managing care of this patient today ____ minutes.
[2024-01-05 12:03] LABS: Glucose, Whole Blood 166 mg/dL (60-115)
[2024-01-05] MEDS: Insulin Lispro 100 UNIT/ML 3 ML VIAL SUBCUT ×3 (12:10→22:18)
[2024-01-05 17:02] LABS: Glucose, Whole Blood 181 mg/dL (60-115)
[2024-01-05] MEDS: metFORMIN HCl ER 500 MG TAB.ER.24H 1000 MG PO (17:05)
[2024-01-05 19:35] VITALS: BP 133/75; PULSE 81; RESP 18; TEMP 36.8; O2SAT 96
[2024-01-05 21:56] LABS: Glucose, Whole Blood 185 mg/dL (60-115)
[2024-01-05] MEDS: Insulin Glargine,Hum.rec.anlog 100 UNIT/ML 10 ML VIAL 20 UNIT SUBCUT (22:18)
[2024-01-05] MEDS: lamoTRIgine 100 MG TABLET 150 MG PO (22:19)
[2024-01-06 07:45] LABS: Glucose, Whole Blood 119 mg/dL (60-115)
[2024-01-06 07:55] VITALS: BP 128/72; PULSE 77; RESP 16; TEMP 36.6; O2SAT 91
[2024-01-06] MEDS: Levothyroxine Sodium 150 MCG TABLET PO (08:03)
[2024-01-06] MEDS: Sertraline HCL 100 MG TABLET PO (08:03)
[2024-01-06] MEDS: Memantine HCl 5 MG TABLET PO ×2 (08:03→21:30)
--- NOTE | 2024-01-06 10:18 | HO.PSYCHPN ---
Subjective Subjective Date of Service: 01/06/24 Reason For Visit: paranoia cognitive impairment Subjective Notes: Conditional Voluntary Interim History: Active on unit. Pt reports feeling okay today; denies any issues at this time. pt had meeting with [facility] to be placed on list for temporary placement; pt declined. Dr. Gonzalez to speak to patient regarding this. Medication Compliance: Yes Side effects from medications: No Attending Groups: Yes Review of Systems Constitutional: Reports as per HPI Eyes: Reports as per HPI Reports as per HPI Cardiovascular: Reports as per HPI Respiratory: Reports as per HPI Gastrointestinal: Reports as per HPI Genitourinary: Reports as per HPI Musculoskeletal: Reports as per HPI Skin/Breast: Reports as per HPI Reports as per HPI Psychiatric: Reports as per HPI Endocrine: Reports as per HPI Hematologic/Lymphatic: Reports as per HPI Allergic/Immunologic: Reports as per HPI 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: Snf Impaired Diagnostics Vital Signs (24Hr): Vital Signs - 24 hr 01/05/24 19:35 01/06/24 07:55 Temperature 98.3 F 97.8 F Pulse Rate 81 77 Respiratory Rate 18 16 Blood Pressure 133/75 128/72 Pulse Oximetry 96 91 L Oxygen Delivery Method Room Air Room Air BMI result Body Mass Index 32.3 Labs 09/10/23 20:00 01/02/24 07:51 Labs: Laboratory Results - last 48 hr 01/04/24 01/04/24 01/04/24 11:56 15:20 16:45 POC Glucose 115 149 H COVID-19 (HARSHA) Positive A COVID-19 Clin Com See Note 01/04/24 01/05/24 01/05/24 20:53 07:29 11:58 POC Glucose 132 H 109 166 H COVID-19 (HARSHA) COVID-19 Clin Com 01/05/24 01/05/24 01/06/24 16:59 21:51 07:38 POC Glucose 181 H 185 H 119 H COVID-19 (HARSHA) COVID-19 Clin Com Imaging Radiology Impressions: ITS Impressions Brain MRI 09/19/23 20:33 IMPRESSION: 1. No demonstrated acute intracranial abnormalities. 2. Chronic mild to moderate nonspecific white matter changes, most notably in the deep white matter of the right frontal lobe. Mild to moderate generalized cerebral volume loss. Medications Medications Current Medications Acetaminophen (Acetaminophen 325 Mg Tablet) 650 mg PO Q6H PRN PRN Reason: Headache/Pain Mild Scale (1-3) Last Admin: 01/01/24 08:45 Dose: 650 mg Al Hydroxide/Mg Hydroxide (Magnesium Hydrox/Alum Hydrox 30 Ml Oral.Susp) 30 ml PO Q6H PRN PRN Reason: Heartburn/Nausea Last Admin: 11/27/23 10:48 Dose: 30 ml Aripiprazole (Aripiprazole Er 300 Mg Suser.Syr) 300 mg IM Q28D MANAS Last Admin: 12/10/23 17:14 Dose: 300 mg Benzocaine (Throat Lozenge, Medicated Lozenge) 1 lozenge MUCOUS MEM Q2H PRN PRN Reason: Sore Throat Last Admin: 12/30/23 20:59 Dose: 1 lozenge Benztropine Mesylate (Benztropine Mesylate 0.5 Mg Tablet) 0.5 mg PO TID PRN PRN Reason: Extrapyramidal Effects Glucose (Glucose Gel 15 Gm Gel..Gram.) 15 gm PO Q15M PRN; Protocol PRN Reason: per Hypoglycemia Standing Ord. Guaifenesin/Dextromethorphan (Guaifenesin Dm 100/10/5 Ml 5 Ml Syrup) 5 ml PO Q4H PRN PRN Reason: Cough Last Admin: 01/02/24 11:46 Dose: 5 ml Hydroxyzine HCl (Hydroxyzine Hcl 25 Mg Tablet) 25 mg PO Q6H PRN PRN Reason: Anxiety Last Admin: 12/30/23 20:59 Dose: 25 mg Dextrose (D10) 250 mls @ 750 mls/hr IV Q15M PRN; Protocol PRN Reason: per Hypoglycemia Standing Ord. Insulin Glargine (Insulin Glargine,Hum.Rec.Anlog 100 Unit/Ml 10 Ml Vial) 20 unit SUBCUT BEDTIME [facility] Last Admin: 01/05/24 22:18 Dose: 20 unit Insulin Human Lispro (Insulin Lispro 100 Unit/Ml 3 Ml Vial) 0 unit SUBCUT QIDACHS [facility]; Protocol Last Admin: 01/06/24 07:52 Dose: Not Given Lamotrigine (Lamotrigine 100 Mg Tablet) 150 mg PO BEDTIME [facility] Last Admin: 01/05/24 22:19 Dose: 150 mg Levothyroxine Sodium (Levothyroxine Sodium 150 Mcg Tablet) 150 mcg PO DAILY@0800 [facility] Last Admin: 01/06/24 08:03 Dose: 150 mcg Magnesium Hydroxide (Milk Of Magnesia 30 Ml Oral.Susp) 30 ml PO DAILY PRN PRN Reason: Constipation Memantine (Memantine Hcl 5 Mg Tablet) 5 mg PO BID [facility] Last Admin: 01/06/24 08:03 Dose: 5 mg Metformin HCl (Metformin Hcl Er 500 Mg Tab.Er.24h) 1,000 mg PO DAILY@1700 [facility] Last Admin: 01/05/24 17:05 Dose: 1,000 mg Ondansetron HCl (Ondansetron Odt 8 Mg Tab.Rapdis) 8 mg TRANSLINGU Q8H PRN PRN Reason: Nausea and Vomiting Last Admin: 12/31/23 08:39 Dose: 8 mg Sertraline HCl (Sertraline Hcl 100 Mg Tablet) 100 mg PO DAILY [facility] Last Admin: 01/06/24 08:03 Dose: 100 mg Simethicone (Simethicone 80 Mg Tab.Chew) 80 mg PO QIDWMHS PRN PRN Reason: Gas Trazodone HCl (Trazodone Hcl 50 Mg Tablet) 50 mg PO BEDTIME MRX1 PRN PRN Reason: Insomnia Last Admin: 01/01/24 21:56 Dose: 50 mg Allergies Allergies Allergy/AdvReac Type Severity Reaction Status Date / Time amoxicillin [AMOXICILLIN] Allergy Mild VOMITING/ABD Verified 09/10/23 19:44 PAIN Assessment & Plan Assessment & Plan (1) Schizoaffective disorder: Status: Acute Code(s): F25.9 - Schizoaffective disorder, unspecified (2) Hypothyroidism: Status: Acute Code(s): E03.9 - Hypothyroidism, unspecified (3) Type 2 diabetes mellitus: Status: Acute Code(s): E11.9 - Type 2 diabetes mellitus without complications (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 Plan: CV 15 minute safety checks Continue home medications: Haldol 10mg PO daily Synthroid 200mcg PO daily Obtain labs; A1C/POCs Obtain collateral from sister Obtain records from last hospitalization. MOCA Referral for [facility] services if patient is agreeable. encourage medication compliance;consider VARGAS discharge planning 09/11: Elevated fasting blood sugar elevated hemoglobin A1c 9.2 med consult placed put in point of care needed will start metformin Would benefit from clarity over recent hospitalization what this were done details regarding treatment continue Haldol unclear if patient has Healthcare proxy his [place] was low slowed cognition with poor details in depth at times during blankly regarding making judgments Unclear if any of this relates to past coma or 2 hypothyroidism. He does seem more impaired than when last seen unclear when last imaging was. Continue Haldol sitter neuro indira involvement regarding diagnostic picture. Patient does remain paranoid blunted suspicious apathetic. He might benefit from longer-term placement if available and appropriate at a later time involved [facility] involvement would be quite helpful 09/12: cont haldol get records ? hcp ? start antidep unclear hx 09/13: Keeping to self. More talkative today. Pt concerned he will be transferred to [facility]. Pt stated, The paper I signed yesterday. Are you going to send me back to the last hospital? That place was horrible . Pt was educated he signed a release of information with Dr. Gonzalez to obtain records from [facility]. Pt was given a copy of the release he signed. Despite this, pt continues to be anxious about being transferred. Pt denies SI/HI/VH/AH. 09/14: Keeping to self. active on unit. showered. Pt reports feeling alright today; pt reports he is worried about where I'm going to go . Pt continues concerned he will be transferred to [facility]. Pt denies SI/HI/VH/AH. 09/15:Pt reports feeling alright today; pt continues to report he is worried about where I'm going to go . Responding with brief responses. Guarded. Observed standing in one place for a long period of time. Appears confused. Pt denies SI/HI/VH/AH. T/W spoke to patient's sister, Ros, with patients verbal consent. Ros reports concerns regarding patients ability to make decisions regarding his mental and physical health. She plans on contacting legal advice on obtaining guardianship of patient. 09/16:Patient's presents similar to yesterday's presentation. Responding with brief responses. Guarded. Observed standing in one place for a long period of time, when asked what he is doing, pt stated, I don't know . Pt reports he plans on contacting his sister today and try to convince her for me to stay there . Pt denies SI/HI/VH/AH. Continue current tx plan. 09/17: brief responses. Guarded. 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 Pt denies SI/HI/VH/AH. T/W and Dr. Gonzalez spoke to patient's sister, Ros. Ros stated being [facility] HCP and plans on finding document. She plans on coming to the hospital on Saturday to be present for [facility] intake. 09/21: No changes 09/22:Patient flat apathetic difficult insight and judgment his sister is healthcare proxy if needed patient is accepting medical treatment Referral to [facility] 09/23:Considers starting Haldol Decanoate patient is agreeable superficially difficulty with exec fx was seen [facility] 09/24:Pt seen in f/u mood flat dysphoric difficulty engaging in conversation preoccupied with thought he wont be living with family thing slowed apathetic no clear response with namenda ? some improvement inc lamictal start low dose sertraline inc lamictal ck tsh 09/25:Start Abilify as augmentation with Haldol see if can be more stimulating regarding depressed mood apathetic limited engagement sertraline 50 mg Lamictal 25 b.i.d. referral to [facility] which would have structure unclear if patient can engage with this he remains quite depressed has delusional beliefs regarding housing and that things have been done he has repeatedly tried to reach out to his sister denies active SI needs much help dressing talking with others encouragement to eat severe thought blocking Abilify might be more stimulating than Haldol which can be more dulling 09/26:Abilify started sertraline Lamictal encouraged step-down to [facility]' encourage reality orientation denies active SI 09/27: Continue current regimen and plans 09/28: Continue current regimen and plans. 09/29: Referral to [facility] increase Abilify to 5 mg daily eventually try and taper Haldol sertraline 50 mg daily 09/30:Increase Abilify to 10 mg lower Haldol to 7 mg continue sertraline and Lamictal 10/01:Abilify increased to 10 mg continue to taper Haldol sertraline 100 mg Lamictal increased to 75 mg patient apathetic withdrawn difficulty with placement some paranoia continues difficulty with decision making at times. Not physically aggressive internally preoccupied seems somewhat improved with Abilify sertraline Continue discharge planning 10/02:Patient somewhat blunted flat slowed thinking during the day times staring. Change Abilify to 10 mg at bedtime. Scheduled Haldol will lowered to 2.5 mg Continue sertraline 100 mg Namenda 5 b.i.d. 10/03:Haldol discontinued modafinil low-dose monitor for psychosis or agitation continue discharge planning 10/06: May need to firm healthcare proxy calls have been placed to sister to try to help in discharge planning. Referrals made. Patient cooperative with care 10/07:Pharmacy ordering Abilify maintain a increase modafinil 100 mg patient remains flat passive depressed some improvement noted no current paranoia noted continue discharge planning no current safe discharge plan 10/08: Increase Lamictal 100 mg Abilify Maintena 400 mg hold modafinil unclear if was overly stimulating patient continues to present internally preoccupied. 10/09:Healthcare proxy invoked discharge planning continue Lamictal Abilify pending maintain a 10/10:Healthcare proxy invoked new CV signed discharge planning. 10/11 keep same treatment 10/12 keep same treatment 10/13: Continue plan of care Lamictal Abilify discharge planning sertraline 10/14: stable. continue current mgmt. 10/15: stable. continue current mgmt. 10/16: stable presentation. continue current mgmt. 10/17: as for yesterday. 10/18: no changes. 10/19: stabel, safe. no change. 10/20: no change in presentation. calm, cooperative. active on unit, social with select peers, attending groups. Pt reports feeling alright . denies SI/HI/VH/AH. Social work waiting to hear from possible placement location. Continue current tx plan. 10/21: continue current tx plan. awaiting placement. 10/22: calm, cooperative. active on unit, social with select peers, attending groups. Pt reports feeling good ; pt stated, I'm waiting to see where I'm going . denies SI/HI/VH/AH. Showered with encouragement. 10/23: continue current tx plan. 10/24: calm, cooperative. active on unit, social with select peers, attending groups. Pt reports feeling good ; pt stated, I just want a place to live . 10/25- likely at baseline for him- CTP 10/26 CTP likely needs placement 10/27: continue current tx plan. awaiting placement. 10/28: Similar to yesterday. No change in presentation. 10/29: Pt reports feeling good ;pt stated, just waiting for a place to live . denies any issues at this time. 10/30: calm, cooperative. active on unit, social with select peers, attending groups. Pt reports feeling worried about where I am going to live . denies any issues at this time. 10/21: no change in presentation. continue current tx plan. 11/01: continue current management and treatment plan. 11/02: Continue current management and treatment plan. 11/03: Continue current management and treatment plan. 11/04: Active on unit. calm, cooperative. social with select peers, attending groups. denies any issues at this time. He reports sleeping well. Pt reports he would be interested in applying for [facility] services; social work aware. 11/05: Active on unit. calm, cooperative. social with select peers, attending groups. denies any issues at this time. Pt reports feeling okay ; he reports anxiety regarding placement. Continue current tx plan. 11/07/23 [facility] referral has appropriate concerns re living stuation cont abilify lamictal 11/08/23 Pt cooperative with care d/c planning working with sw cont d/c planning cont lamictal abilify 11/12/23 Patient increasingly despairing aware of no clear discharge plan periods needs cuing for much functioning limited social engaged needs help regarding diabetes and medication compliance reportedly had been rejected by multiple rest homes patient not threatening intermittently hopeless helpless very limited family contact at this time 11/13/23 pt flat depressed hopeless helpless unable to fx without structure 11/15 continue tx. 11/16 continue tx. 11/18/2023 Continue plan of care referral to [facility] TSH low will decrease levothyroxine 11/19/23 Pt flat dysphor ic inc hopeless helpless lamictal 150 hs dec levothyroxine 150 d/c planning cont 11/20/23 lamictal inc d/c planning [facility] referral 12/02/2023 Continue Lamictal Abilify patient cooperative with care gets despairing at times regarding lack of family support problematic discharge planning in relationship to finding suitable structured place to live 12/02: Social with peers. Per nursing, pt did not sleep last night. Pt reports he did not sleeping because he wasn't tired but feel okay ; ordered Ativan 1mg PO bedtime for tonight, pt aware. 12/03: In bed sleeping, pt reports he is catching up on sleep from the night before. Calm, cooperative. T/W and s iron worker, Billie, with pt to discuss possibly going to the [facility]. Pt reports he would like to call his sister and speak to her before deciding. DC Ativan. 12/04: Active on unit, social with peers. attending groups. T/W and s iron workerBillie, met with pt to discuss discharge plan. Pt reports he doesn't know if he would want to go to a homeless long-term; he states he would rather live on the street because I've done it before . Pt encouraged to consider benefits of going to a long-term with the winter months coming; he agreed to doing phone intake with 7th grade social studies teacher on Saturday with [facility]. 12/05: Pt presents similar to yesterday. Continues to perseverate about [facility] being a long-term and not a program; He continues to agree to do phone intake on Saturday. Discussed VARGAS, pt reports he want time to consider d/t not liking needles . 12/08: Pt had phone interview with Shaylee Moore, however, after multiple attempts at calling them, no one at [facility] picked up the phone to conduct interview. s iron worker to get into contact with them again. Pt denies any issues at this time. 12/09: Active on unit, social with peers. Pt denies any issues at this time. Patient agreed to receiving Abilify Maintena; risks/benefits reviewed. Waiting on placement. 12/10: Patient received Abilify Maintena yesterday. He denies any side effects. Pleasant. Waiting on placement. 12/11: continue current tx plan. 12/12: similar to days prior. waiting on placement. continue current tx plan. 12/13: appearing more depressed or demoralized. notes lots of people come and go. continue current mgmt. 12/14: same as for yesterday: find me a place to live? continue current mgmt. 12/15: out and about more. otherwise stable. continue current mgmt. 12/16: continue current tx plan. 12/17: continue current tx plan. 12/18: awaiting placement. denies any issues. 12/19: Pt reports feeling alright ; Social work continues to work on placement. Pt denies any issues at this time. Pt reports sleeping well. 12/20: Continue plan of care 12/21: Continue plan of care 12/22: continue current tx plan. 12/23: continue tx plan. 12/24: continue tx plan. 12/25: similar to days prior. waiting on placement. 12/26: Continue current tx plan. 12/27: Continue current management and treatment plan. 12/28: Continue current management and treatment plan. 12/29: In bed, tested positive for Covid. Vomited x1 per nursing. Pt reports feeling okay ; sleeping most of shift. Continue current tx plan. 12/30: Pt reports feeling okay ; continues on isolation d/t being Covid positive. Utilizing IPad. Pt reports sleeping well. denies SI/HI/VH/AH. Has not vomited today. 12/31: Pt reports feeling alright ; pt stated, I still have a stuffy nose, cough and headache but I'm starting to feel better . continues on isolation. denies other issues at this time. Continue current tx plan. 01/01: pt reports covid symptoms are improving. continues waiting on placement. 11/1: Continue tx plan. 01/05/24: no changes. 01/05: Active on unit. Pt reports feeling okay today; denies any issues at this time. pt had meeting with [facility] to be placed on list for temporary placement; pt declined. Dr. Gonzalez to speak to patient regarding this. Patient educated on: diagnosis and medication risk/benefits Reason for continued inpatient stay Substantial Risk for: other (discharge planning) Time Spent With Patient Time: Total time managing care of this patient today _20___ minutes.
[2024-01-06 12:06] LABS: Glucose, Whole Blood 123 mg/dL (60-115)
[2024-01-06 17:04] LABS: Glucose, Whole Blood 103 mg/dL (60-115)
[2024-01-06] MEDS: metFORMIN HCl ER 500 MG TAB.ER.24H 1000 MG PO (17:15)
[2024-01-06 20:00] VITALS: BP 124/79; PULSE 79; RESP 16; TEMP 36.6; O2SAT 94
[2024-01-06 21:18] LABS: Glucose, Whole Blood 167 mg/dL (60-115)
[2024-01-06] MEDS: Insulin Lispro 100 UNIT/ML 3 ML VIAL SUBCUT (21:29)
[2024-01-06] MEDS: Insulin Glargine,Hum.rec.anlog 100 UNIT/ML 10 ML VIAL 20 UNIT SUBCUT (21:29)
[2024-01-06] MEDS: lamoTRIgine 100 MG TABLET 150 MG PO (21:30)
[2024-01-06] MEDS: traZODone HCL 50 MG TABLET PO (21:30)
[2024-01-06] MEDS: guaiFENesin DM 100/10/5 ML 5 ML SYRUP PO (22:48)
[2024-01-07 07:34] VITALS: BP 123/71; PULSE 73; RESP 18; TEMP 36.6; O2SAT 97
[2024-01-07 07:57] LABS: Glucose, Whole Blood 100 mg/dL (60-115)
--- NOTE | 2024-01-07 08:43 | P.PNPSI_ITS ---
Subjective Subjective Date of Service: 01/07/24 Reason For Visit: paranoia cognitive impairment Subjective Notes: Conditional Voluntary Interim History: Discussed placement; pt reports he is thinking about saying yes to the motel . pt reports he does not believe his sister or pediatric social worker that he has money saved in the bank. Pt believes if he left to go to the motel he would be stuck there with no money . Social work to discuss with pt. Medication Compliance: Yes Side effects from medications: No Attending Groups: Yes Review of Systems Constitutional: Reports as per HPI Eyes: Reports as per HPI Reports as per HPI Cardiovascular: Reports as per HPI Respiratory: Reports as per HPI Gastrointestinal: Reports as per HPI Genitourinary: Reports as per HPI Musculoskeletal: Reports as per HPI Skin/Breast: Reports as per HPI Reports as per HPI Psychiatric: Reports as per HPI Endocrine: Reports as per HPI Hematologic/Lymphatic: Reports as per HPI Allergic/Immunologic: Reports as per HPI 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: Air Quality Technician Impaired Diagnostics Vital Signs (24Hr): Vital Signs - 24 hr 01/06/24 20:00 01/07/24 07:34 Temperature 97.8 F 97.9 F Pulse Rate 79 73 Respiratory Rate 16 18 Blood Pressure 124/79 123/71 Pulse Oximetry 94 97 Oxygen Delivery Method Room Air Room Air BMI result Body Mass Index 32.3 Labs 09/10/23 20:00 01/02/24 07:51 Labs: Laboratory Results - last 48 hr 01/05/24 01/05/24 01/05/24 11:58 16:59 21:51 POC Glucose 166 H 181 H 185 H 01/06/24 01/06/24 01/06/24 07:38 12:01 17:01 POC Glucose 119 H 123 H 103 01/06/24 01/07/24 21:13 07:43 POC Glucose 167 H 100 Imaging Radiology Impressions: ITS Impressions Brain MRI 09/19/23 20:33 IMPRESSION: 1. No demonstrated acute intracranial abnormalities. 2. Chronic mild to moderate nonspecific white matter changes, most notably in the deep white matter of the right frontal lobe. Mild to moderate generalized cerebral volume loss. Medications Medications Current Medications Acetaminophen (Acetaminophen 325 Mg Tablet) 650 mg PO Q6H PRN PRN Reason: Headache/Pain Mild Scale (1-3) Last Admin: 01/01/24 08:45 Dose: 650 mg Al Hydroxide/Mg Hydroxide (Magnesium Hydrox/Alum Hydrox 30 Ml Oral.Susp) 30 ml PO Q6H PRN PRN Reason: Heartburn/Nausea Last Admin: 11/27/23 10:48 Dose: 30 ml Aripiprazole (Aripiprazole Er 300 Mg Suser.Syr) 300 mg IM Q28D MANAS Last Admin: 12/10/23 17:14 Dose: 300 mg Benzocaine (Throat Lozenge, Medicated Lozenge) 1 lozenge MUCOUS MEM Q2H PRN PRN Reason: Sore Throat Last Admin: 12/30/23 20:59 Dose: 1 lozenge Benztropine Mesylate (Benztropine Mesylate 0.5 Mg Tablet) 0.5 mg PO TID PRN PRN Reason: Extrapyramidal Effects Glucose (Glucose Gel 15 Gm Gel..Gram.) 15 gm PO Q15M PRN; Protocol PRN Reason: per Hypoglycemia Standing Ord. Guaifenesin/Dextromethorphan (Guaifenesin Dm 100/10/5 Ml 5 Ml Syrup) 5 ml PO Q4H PRN PRN Reason: Cough Last Admin: 01/06/24 22:48 Dose: 5 ml Hydroxyzine HCl (Hydroxyzine Hcl 25 Mg Tablet) 25 mg PO Q6H PRN PRN Reason: Anxiety Last Admin: 12/30/23 20:59 Dose: 25 mg Dextrose (D10) 250 mls @ 750 mls/hr IV Q15M PRN; Protocol PRN Reason: per Hypoglycemia Standing Ord. Insulin Glargine (Insulin Glargine,Hum.Rec.Anlog 100 Unit/Ml 10 Ml Vial) 20 unit SUBCUT BEDTIME [facility] Last Admin: 01/06/24 21:29 Dose: 20 unit Insulin Human Lispro (Insulin Lispro 100 Unit/Ml 3 Ml Vial) 0 unit SUBCUT QIDACHS [facility]; Protocol Last Admin: 01/07/24 08:36 Dose: Not Given Lamotrigine (Lamotrigine 100 Mg Tablet) 150 mg PO BEDTIME [facility] Last Admin: 01/06/24 21:30 Dose: 150 mg Levothyroxine Sodium (Levothyroxine Sodium 150 Mcg Tablet) 150 mcg PO DAILY@0800 [facility] Last Admin: 01/06/24 08:03 Dose: 150 mcg Magnesium Hydroxide (Milk Of Magnesia 30 Ml Oral.Susp) 30 ml PO DAILY PRN PRN Reason: Constipation Memantine (Memantine Hcl 5 Mg Tablet) 5 mg PO BID [facility] Last Admin: 01/06/24 21:30 Dose: 5 mg Metformin HCl (Metformin Hcl Er 500 Mg Tab.Er.24h) 1,000 mg PO DAILY@1700 [facility] Last Admin: 01/06/24 17:15 Dose: 1,000 mg Ondansetron HCl (Ondansetron Odt 8 Mg Tab.Rapdis) 8 mg TRANSLINGU Q8H PRN PRN Reason: Nausea and Vomiting Last Admin: 12/31/23 08:39 Dose: 8 mg Sertraline HCl (Sertraline Hcl 100 Mg Tablet) 100 mg PO DAILY [facility] Last Admin: 01/06/24 08:03 Dose: 100 mg Simethicone (Simethicone 80 Mg Tab.Chew) 80 mg PO QIDWMHS PRN PRN Reason: Gas Trazodone HCl (Trazodone Hcl 50 Mg Tablet) 50 mg PO BEDTIME MRX1 PRN PRN Reason: Insomnia Last Admin: 01/06/24 21:30 Dose: 50 mg Allergies Allergies Allergy/AdvReac Type Severity Reaction Status Date / Time amoxicillin [AMOXICILLIN] Allergy Mild VOMITING/ABD Verified 09/10/23 19:44 PAIN Assessment & Plan Assessment & Plan (1) Schizoaffective disorder: Status: Acute Code(s): F25.9 - Schizoaffective disorder, unspecified (2) Hypothyroidism: Status: Acute Code(s): E03.9 - Hypothyroidism, unspecified (3) Type 2 diabetes mellitus: Status: Acute Code(s): E11.9 - Type 2 diabetes mellitus without complications (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 Plan: CV 15 minute safety checks Continue home medications: Haldol 10mg PO daily Synthroid 200mcg PO daily Obtain labs; A1C/POCs Obtain collateral from sister Obtain records from last hospitalization. MOCA Referral for DMH services if patient is agreeable. encourage medication compliance;consider VARGAS discharge planning 09/11: Elevated fasting blood sugar elevated hemoglobin A1c 9.2 med consult placed put in point of care needed will start metformin Would benefit from clarity over recent hospitalization what this were done details regarding treatment continue Haldol unclear if patient has Healthcare proxy his [place] was low slowed cognition with poor details in depth at times during blankly regarding making judgments Unclear if any of this relates to past coma or 2 hypothyroidism. He does seem more impaired than when last seen unclear when last imaging was. Continue Haldol sitter neuro indira involvement regarding diagnostic picture. Patient does remain paranoid blunted suspicious apathetic. He might benefit from longer- term placement if available and appropriate at a later time involved DMH involvement would be quite helpful 09/12: cont haldol get records ? hcp ? start antidep unclear hx 09/13: Keeping to self. More talkative today. Pt concerned he will be transferred to [facility]. Pt stated, The paper I signed yesterday. Are you going to send me back to the last hospital? That place was horrible . Pt was educated he signed a release of information with Dr. Gonzalez to obtain records from [facility]. Pt was given a copy of the release he signed. Despite this, pt continues to be anxious about being transferred. Pt denies SI/HI/VH/AH. 09/14: Keeping to self. active on unit. showered. Pt reports feeling alright today; pt reports he is worried about where I'm going to go . Pt continues concerned he will be transferred to [facility]. Pt denies SI/HI/VH/AH. 09/15:Pt reports feeling alright today; pt continues to report he is worried about where I'm going to go . Responding with brief responses. Guarded. Observed standing in one place for a long period of time. Appears confused. Pt denies SI/HI/VH/AH. T/W spoke to patient's sister, Ros, with patients verbal consent. Ros reports concerns regarding patients ability to make decisions regarding his mental and physical health. She plans on contacting legal advice on obtaining guardianship of patient. 09/16:Patient's presents similar to yesterday's presentation. Responding with brief responses. Guarded. Observed standing in one place for a long period of time, when asked what he is doing, pt stated, I don't know . Pt reports he plans on contacting his sister today and try to convince her for me to stay there . Pt denies SI/HI/VH/AH. Continue current tx plan. 09/17: brief responses. Guarded. Continues to bobbin dumper one place for a long period of time, when asked what he is doing, pt stated, I don't know . Pt denies SI/HI/VH/AH. T/W and Dr. Gonzalez spoke to patient's sister, Ros. Ros stated being [place] HCP and plans on finding document. She plans on coming to the hospital on Saturday to be present for [facility] intake. 09/21: No changes 09/22:Patient flat apathetic difficult insight and judgment his sister is healthcare proxy if needed patient is accepting medical treatment Referral to [facility] 09/23:Considers starting Haldol Decano[place] patient is agreeable superficially difficulty with exec fx was seen [facility] 09/24:Pt seen in f/u mood flat dysphoric difficulty engaging in conversation preoccupied with thought he wont be living with family thing slowed apathetic no clear response with namenda ? some improvement inc lamictal start low dose sertraline inc lamictal ck tsh 09/25:Start Abilify as augmentation with Haldol see if can be more stimulating regarding depressed mood apathetic limited engagement sertraline 50 mg Lamictal 25 b.i.d. referral to [facility] which would have structure unclear if patient can engage with this he remains quite depressed has delusional beliefs regarding housing and that things have been done he has repeatedly tried to reach out to his sister denies active SI needs much help dressing talking with others encouragement to eat severe thought blocking Abilify might be more stimulating than Haldol which can be more dulling 09/26:Abilify started sertraline Lamictal encouraged step-down to [facility]' encourage reality orientation denies active SI 09/27: Continue current regimen and plans 09/28: Continue current regimen and plans. 09/29: Referral to [facility] increase Abilify to 5 mg daily eventually try and taper Haldol sertraline 50 mg daily 09/30:Increase Abilify to 10 mg lower Haldol to 7 mg continue sertraline and Lamictal 10/01:Abilify increased to 10 mg continue to taper Haldol sertraline 100 mg Lamictal increased to 75 mg patient apathetic withdrawn difficulty with placement some paranoia continues difficulty with decision making at times. Not physically aggressive internally preoccupied seems somewhat improved with Abilify sertraline Continue discharge planning 10/02:Patient somewhat blunted flat slowed thinking during the day times staring. Change Abilify to 10 mg at bedtime. Scheduled Haldol will lowered to 2.5 mg Continue sertraline 100 mg Namenda 5 b.i.d. 10/03:Haldol discontinued modafinil low-dose monitor for psychosis or agitation continue discharge planning 10/06: May need to firm healthcare proxy calls have been placed to sister to try to help in discharge planning. Referrals made. Patient cooperative with care 10/07:Pharmacy ordering Abilify maintain a increase modafinil 100 mg patient remains flat passive depressed some improvement noted no current paranoia noted continue discharge planning no current safe discharge plan 10/08: Increase Lamictal 100 mg Abilify Maintena 400 mg hold modafinil unclear if was overly stimulating patient continues to present internally preoccupied. 10/09:Healthcare proxy invoked discharge planning continue Lamictal Abilify pending maintain a 10/10:Healthcare proxy invoked new CV signed discharge planning. 10/11 keep same treatment 10/12 keep same treatment 10/13: Continue plan of care Lamictal Abilify discharge planning sertraline 10/14: stable. continue current mgmt. 10/15: stable. continue current mgmt. 15: stable presentation. continue current mgmt. 16: as for yesterday. 10/18: no changes. 10/19: stabel, safe. no change. 10/20: no change in presentation. calm, cooperative. active on unit, social with select peers, attending groups. Pt reports feeling alright . denies SI/HI/VH/AH. Social work waiting to hear from possible placement location. Continue current tx plan. 10/21: continue current tx plan. awaiting placement. 10/22: calm, cooperative. active on unit, social with select peers, attending groups. Pt reports feeling good ; pt stated, I'm waiting to see where I'm going . denies SI/HI/VH/AH. Showered with encouragement. 10/23: continue current tx plan. 10/24: calm, cooperative. active on unit, social with select peers, attending groups. Pt reports feeling good ; pt stated, I just want a place to live . 10/25- likely at baseline for him- CTP 10/26 CTP likely needs placement 10/27: continue current tx plan. awaiting placement. 10/28: Similar to yesterday. No change in presentation. 10/29: Pt reports feeling good ;pt stated, just waiting for a place to live . denies any issues at this time. 10/30: calm, cooperative. active on unit, social with select peers, attending groups. Pt reports feeling worried about where I am going to live . denies any issues at this time. 10/21: no change in presentation. continue current tx plan. 11/01: continue current management and treatment plan. 11/02: Continue current management and treatment plan. 11/03: Continue current management and treatment plan. 11/04: Active on unit. calm, cooperative. social with select peers, attending groups. denies any issues at this time. He reports sleeping well. Pt reports he would be interested in applying for [facility] services; social work aware. 11/05: Active on unit. calm, cooperative. social with select peers, attending groups. denies any issues at this time. Pt reports feeling okay ; he reports anxiety regarding placement. Continue current tx plan. 11/07/23 DMH referral has appropriate concerns re living stuation cont abilify lamictal 11/08/23 Pt cooperative with care d/c planning working with sw cont d/c planning cont lamictal abilify 11/12/23 Patient increasingly despairing aware of no clear discharge plan periods needs cuing for much functioning limited social engaged needs help regarding diabetes and medication compliance reportedly had been rejected by multiple rest homes patient not threatening intermittently hopeless helpless very limited family contact at this time 11/13/23 pt flat depressed hopeless helpless unable to fx without structure 11/15 continue tx. 11/16 continue tx. 11/18/2023 Continue plan of care referral to [facility] TSH low will decrease levothyroxine 11/19/23 Pt flat dysphor ic inc hopeless helpless lamictal 150 hs dec levothyroxine 150 d/c planning cont 11/20/23 lamictal inc d/c planning dm referral 12/02/2023 Continue Lamictal Abilify patient cooperative with care gets despairing at times regarding lack of family support problematic discharge planning in relationship to finding suitable structured place to live 12/02: Social with peers. Per nursing, pt did not sleep last night. Pt reports he did not sleeping because he wasn't tired but feel okay ; ordered Ativan 1mg PO bedtime for tonight, pt aware. 12/03: In bed sleeping, pt reports he is catching up on sleep from the night before. Calm, cooperative. T/W and sample shoe inspector and reworker, Billie, with pt to discuss possibly going to the [facility]. Pt reports he would like to call his sister and speak to her before deciding. DC Ativan. 12/04: Active on unit, social with peers. attending groups. T/W and sample shoe inspector and reworkerBillie, met with pt to discuss discharge plan. Pt reports he doesn't know if he would want to go to a homeless prison; he states he would rather live on the street because I've done it before . Pt encouraged to consider benefits of going to a prison with the winter months coming; he agreed to doing phone intake with pediatric social worker on Saturday with [facility]. 12/05: Pt presents similar to yesterday. Continues to perseverate about [facility] being a prison and not a program; He continues to agree to do phone intake on Saturday. Discussed VARGAS, pt reports he want time to consider d/t not liking needles . 12/08: Pt had phone interview with [facility], however, after multiple attempts at calling them, no one at [facility] picked up the phone to conduct interview. sample shoe inspector and reworker to get into contact with them again. Pt denies any issues at this time. 12/09: Active on unit, social with peers. Pt denies any issues at this time. Patient agreed to receiving Abilify Maintena; risks/benefits reviewed. Waiting on placement. 12/10: Patient received Abilify Maintena yesterday. He denies any side effects. Pleasant. Waiting on placement. 12/11: continue current tx plan. 12/12: similar to days prior. waiting on placement. continue current tx plan. 12/13: appearing more depressed or demoralized. notes lots of people come and go. continue current mgmt. 12/14: same as for yesterday: find me a place to live? continue current mgmt. 12/15: out and about more. otherwise stable. continue current mgmt. 12/16: continue current tx plan. 12/17: continue current tx plan. 12/18: awaiting placement. denies any issues. 12/19: Pt reports feeling alright ; Social work continues to work on placement. Pt denies any issues at this time. Pt reports sleeping well. 12/20: Continue plan of care 12/21: Continue plan of care 12/22: continue current tx plan. 12/23: continue tx plan. 12/24: continue tx plan. 12/25: similar to days prior. waiting on placement. 12/26: Continue current tx plan. 12/27: Continue current management and treatment plan. 12/28: Continue current management and treatment plan. 12/29: In bed, tested positive for Covid. Vomited x1 per nursing. Pt reports feeling okay ; sleeping most of shift. Continue current tx plan. 12/30: Pt reports feeling okay ; continues on isolation d/t being Covid positive. Utilizing IPad. Pt reports sleeping well. denies SI/HI/VH/AH. Has not vomited today. 12/31: Pt reports feeling alright ; pt stated, I still have a stuffy nose, cough and headache but I'm starting to feel better . continues on isolation. denies other issues at this time. Continue current tx plan. 01/01: pt reports covid symptoms are improving. continues waiting on placement. 01/02: Continue tx plan. 01/05/24: no changes. 01/05: Active on unit. Pt reports feeling okay today; denies any issues at this time. pt had meeting with [facility] to be placed on list for temporary placement; pt declined. Dr. Gonzalez to speak to patient regarding this. 01/06: Discussed placement; pt reports he is thinking about saying yes to the motel . pt reports he does not believe his sister or pediatric social worker that he has money saved in the bank. Pt believes if he left to go to the motel he would be stuck there with no money . Social work to discuss with pt. Reason for continued inpatient stay Substantial Risk for: other (waiting on placement. ) Time Spent With Patient Time: Total time managing care of this patient today _20___ minutes.
[2024-01-07] MEDS: Sertraline HCL 100 MG TABLET PO (08:46)
[2024-01-07] MEDS: Levothyroxine Sodium 150 MCG TABLET PO (08:46)
[2024-01-07] MEDS: Memantine HCl 5 MG TABLET PO ×2 (08:46→22:05)
[2024-01-07 11:42] LABS: Glucose, Whole Blood 168 mg/dL (60-115)
[2024-01-07] MEDS: Insulin Lispro 100 UNIT/ML 3 ML VIAL SUBCUT ×2 (12:04→16:52)
[2024-01-07] MEDS: metFORMIN HCl ER 500 MG TAB.ER.24H 1000 MG PO (16:52)
[2024-01-07 16:53] LABS: Glucose, Whole Blood 247 mg/dL (60-115)
[2024-01-07 21:19] LABS: Glucose, Whole Blood 144 mg/dL (60-115)
[2024-01-07 21:49] VITALS: BP 139/69; PULSE 83; RESP 18; TEMP 36.6; O2SAT 97
[2024-01-07] MEDS: lamoTRIgine 100 MG TABLET 150 MG PO (21:52)
[2024-01-07] MEDS: Insulin Glargine,Hum.rec.anlog 100 UNIT/ML 10 ML VIAL 20 UNIT SUBCUT (21:52)
[2024-01-07] MEDS: traZODone HCL 50 MG TABLET PO (21:52)
[2024-01-08 08:00] VITALS: BP 139/79; PULSE 74; RESP 16; TEMP 36.4; O2SAT 100
[2024-01-08 08:01] LABS: Glucose, Whole Blood 129 mg/dL (60-115)
[2024-01-08] MEDS: Levothyroxine Sodium 150 MCG TABLET PO (08:22)
[2024-01-08] MEDS: Memantine HCl 5 MG TABLET PO ×2 (08:22→20:57)
[2024-01-08] MEDS: Sertraline HCL 100 MG TABLET PO (08:22)
[2024-01-08] MEDS: ARIPIPRAZOLE 300 MG IM (09:00)
--- NOTE | 2024-01-08 09:16 | HO.PSYCHPN ---
Subjective Subjective Date of Service: 01/08/24 Reason For Visit: paranoia cognitive impairment Subjective Notes: Conditional Voluntary Interim History: Active on unit. social with peers. denies any issues. Pt reports feeling okay ; reports he is still thinking about where he will go after discharge. Medication Compliance: Yes Side effects from medications: No Attending Groups: Yes Review of Systems Constitutional: Reports as per HPI Eyes: Reports as per HPI Reports as per HPI Cardiovascular: Reports as per HPI Respiratory: Reports as per HPI Gastrointestinal: Reports as per HPI Genitourinary: Reports as per HPI Musculoskeletal: Reports as per HPI Skin/Breast: Reports as per HPI Reports as per HPI Psychiatric: Reports as per HPI Endocrine: Reports as per HPI Hematologic/Lymphatic: Reports as per HPI Allergic/Immunologic: Reports as per HPI 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: Mcc Impaired Diagnostics Vital Signs (24Hr): Vital Signs - 24 hr 01/07/24 21:49 01/08/24 08:00 Temperature 97.9 F 97.6 F Pulse Rate 83 74 Respiratory Rate 18 16 Blood Pressure 139/69 139/79 Pulse Oximetry 97 100 Oxygen Delivery Method Room Air Room Air BMI result Body Mass Index 32.3 Labs 09/10/23 20:00 01/02/24 07:51 Labs: Laboratory Results - last 48 hr 01/06/24 01/06/24 01/06/24 12:01 17:01 21:13 POC Glucose 123 H 103 167 H 01/07/24 01/07/24 01/07/24 07:43 11:39 16:49 POC Glucose 100 168 H 247 H 01/07/24 01/08/24 21:14 07:57 POC Glucose 144 H 129 H Imaging Radiology Impressions: ITS Impressions Brain MRI 09/19/23 20:33 IMPRESSION: 1. No demonstrated acute intracranial abnormalities. 2. Chronic mild to moderate nonspecific white matter changes, most notably in the deep white matter of the right frontal lobe. Mild to moderate generalized cerebral volume loss. Medications Medications Current Medications Acetaminophen (Acetaminophen 325 Mg Tablet) 650 mg PO Q6H PRN PRN Reason: Headache/Pain Mild Scale (1-3) Last Admin: 01/01/24 08:45 Dose: 650 mg Al Hydroxide/Mg Hydroxide (Magnesium Hydrox/Alum Hydrox 30 Ml Oral.Susp) 30 ml PO Q6H PRN PRN Reason: Heartburn/Nausea Last Admin: 11/27/23 10:48 Dose: 30 ml Aripiprazole (Aripiprazole Er 300 Mg Suser.Syr) 300 mg IM Q28D@0900 [facility] Last Admin: 01/08/24 09:00 Dose: 300 mg Benzocaine (Throat Lozenge, Medicated Lozenge) 1 lozenge MUCOUS MEM Q2H PRN PRN Reason: Sore Throat Last Admin: 12/30/23 20:59 Dose: 1 lozenge Benztropine Mesylate (Benztropine Mesylate 0.5 Mg Tablet) 0.5 mg PO TID PRN PRN Reason: Extrapyramidal Effects Glucose (Glucose Gel 15 Gm Gel..Gram.) 15 gm PO Q15M PRN; Protocol PRN Reason: per Hypoglycemia Standing Ord. Guaifenesin/Dextromethorphan (Guaifenesin Dm 100/10/5 Ml 5 Ml Syrup) 5 ml PO Q4H PRN PRN Reason: Cough Last Admin: 01/06/24 22:48 Dose: 5 ml Hydroxyzine HCl (Hydroxyzine Hcl 25 Mg Tablet) 25 mg PO Q6H PRN PRN Reason: Anxiety Last Admin: 12/30/23 20:59 Dose: 25 mg Dextrose (D10) 250 mls @ 750 mls/hr IV Q15M PRN; Protocol PRN Reason: per Hypoglycemia Standing Ord. Insulin Glargine (Insulin Glargine,Hum.Rec.Anlog 100 Unit/Ml 10 Ml Vial) 20 unit SUBCUT BEDTIME [facility] Last Admin: 01/07/24 21:52 Dose: 20 unit Insulin Human Lispro (Insulin Lispro 100 Unit/Ml 3 Ml Vial) 0 unit SUBCUT QIDACHS [facility]; Protocol Last Admin: 01/08/24 08:40 Dose: Not Given Lamotrigine (Lamotrigine 100 Mg Tablet) 150 mg PO BEDTIME [facility] Last Admin: 01/07/24 21:52 Dose: 150 mg Levothyroxine Sodium (Levothyroxine Sodium 150 Mcg Tablet) 150 mcg PO DAILY@0800 [facility] Last Admin: 01/08/24 08:22 Dose: 150 mcg Magnesium Hydroxide (Milk Of Magnesia 30 Ml Oral.Susp) 30 ml PO DAILY PRN PRN Reason: Constipation Memantine (Memantine Hcl 5 Mg Tablet) 5 mg PO BID [facility] Last Admin: 01/08/24 08:22 Dose: 5 mg Metformin HCl (Metformin Hcl Er 500 Mg Tab.Er.24h) 1,000 mg PO DAILY@1700 [facility] Last Admin: 01/07/24 16:52 Dose: 1,000 mg Ondansetron HCl (Ondansetron Odt 8 Mg Tab.Rapdis) 8 mg TRANSLINGU Q8H PRN PRN Reason: Nausea and Vomiting Last Admin: 12/31/23 08:39 Dose: 8 mg Sertraline HCl (Sertraline Hcl 100 Mg Tablet) 100 mg PO DAILY [facility] Last Admin: 01/08/24 08:22 Dose: 100 mg Simethicone (Simethicone 80 Mg Tab.Chew) 80 mg PO QIDWMHS PRN PRN Reason: Gas Trazodone HCl (Trazodone Hcl 50 Mg Tablet) 50 mg PO BEDTIME MRX1 PRN PRN Reason: Insomnia Last Admin: 01/07/24 21:52 Dose: 50 mg Allergies Allergies Allergy/AdvReac Type Severity Reaction Status Date / Time amoxicillin [AMOXICILLIN] Allergy Mild VOMITING/ABD Verified 09/10/23 19:44 PAIN Assessment & Plan Assessment & Plan (1) Schizoaffective disorder: Status: Acute Code(s): F25.9 - Schizoaffective disorder, unspecified (2) Hypothyroidism: Status: Acute Code(s): E03.9 - Hypothyroidism, unspecified (3) Type 2 diabetes mellitus: Status: Acute Code(s): E11.9 - Type 2 diabetes mellitus without complications (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 Plan: CV 15 minute safety checks Continue home medications: Haldol 10mg PO daily Synthroid 200mcg PO daily Obtain labs; A1C/POCs Obtain collateral from sister Obtain records from last hospitalization. MOCA Referral for [facility]H services if patient is agreeable. encourage medication compliance;consider VARGAS discharge planning 09/11: Elevated fasting blood sugar elevated hemoglobin A1c 9.2 med consult placed put in point of care needed will start metformin Would benefit from clarity over recent hospitalization what this were done details regarding treatment continue Haldol unclear if patient has Healthcare proxy his [place] was low slowed cognition with poor details in depth at times during blankly regarding making judgments Unclear if any of this relates to past coma or 2 hypothyroidism. He does seem more impaired than when last seen unclear when last imaging was. Continue Haldol sitter neuro indira involvement regarding diagnostic picture. Patient does remain paranoid blunted suspicious apathetic. He might benefit from longer-term placement if available and appropriate at a later time involved [facility]H involvement would be quite helpful 09/12: cont haldol get records ? hcp ? start antidep unclear hx 09/13: Keeping to self. More talkative today. Pt concerned he will be transferred to [facility]. Pt stated, The paper I signed yesterday. Are you going to send me back to the last hospital? That place was horrible . Pt was educated he signed a release of information with Dr. Gonzalez to obtain records from [facility]. Pt was given a copy of the release he signed. Despite this, pt continues to be anxious about being transferred. Pt denies SI/HI/VH/AH. 09/14: Keeping to self. active on unit. showered. Pt reports feeling alright today; pt reports he is worried about where I'm going to go . Pt continues concerned he will be transferred to [facility]. Pt denies SI/HI/VH/AH. 09/15:Pt reports feeling alright today; pt continues to report he is worried about where I'm going to go . Responding with brief responses. Guarded. Observed standing in one place for a long period of time. Appears confused. Pt denies SI/HI/VH/AH. T/W spoke to patient's sister, Ros, with patients verbal consent. Ros reports concerns regarding patients ability to make decisions regarding his mental and physical health. She plans on contacting legal advice on obtaining guardianship of patient. 09/16:Patient's presents similar to yesterday's presentation. Responding with brief responses. Guarded. Observed standing in one place for a long period of time, when asked what he is doing, pt stated, I don't know . Pt reports he plans on contacting his sister today and try to convince her for me to stay there . Pt denies SI/HI/VH/AH. Continue current tx plan. 09/17: brief responses. Guarded. 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 Pt denies SI/HI/VH/AH. T/W and Dr. Gonzalez spoke to patient's sister, Ros. Ros stated being [facility] HCP and plans on finding document. She plans on coming to the hospital on Saturday to be present for [facility] intake. 09/21: No changes 09/22:Patient flat apathetic difficult insight and judgment his sister is healthcare proxy if needed patient is accepting medical treatment Referral to [facility] 09/23:Considers starting Haldol Decanoate patient is agreeable superficially difficulty with exec fx was seen [facility] 09/24:Pt seen in f/u mood flat dysphoric difficulty engaging in conversation preoccupied with thought he wont be living with family thing slowed apathetic no clear response with namenda ? some improvement inc lamictal start low dose sertraline inc lamictal ck tsh 09/25:Start Abilify as augmentation with Haldol see if can be more stimulating regarding depressed mood apathetic limited engagement sertraline 50 mg Lamictal 25 b.i.d. referral to [facility] which would have structure unclear if patient can engage with this he remains quite depressed has delusional beliefs regarding housing and that things have been done he has repeatedly tried to reach out to his sister denies active SI needs much help dressing talking with others encouragement to eat severe thought blocking Abilify might be more stimulating than Haldol which can be more dulling 09/26:Abilify started sertraline Lamictal encouraged step-down to [facility] encourage reality orientation denies active SI 09/27: Continue current regimen and plans 09/28: Continue current regimen and plans. 09/29: Referral to [facility] increase Abilify to 5 mg daily eventually try and taper Haldol sertraline 50 mg daily 09/30:Increase Abilify to 10 mg lower Haldol to 7 mg continue sertraline and Lamictal 10/01:Abilify increased to 10 mg continue to taper Haldol sertraline 100 mg Lamictal increased to 75 mg patient apathetic withdrawn difficulty with placement some paranoia continues difficulty with decision making at times. Not physically aggressive internally preoccupied seems somewhat improved with Abilify sertraline Continue discharge planning 10/02:Patient somewhat blunted flat slowed thinking during the day times staring. Change Abilify to 10 mg at bedtime. Scheduled Haldol will lowered to 2.5 mg Continue sertraline 100 mg Namenda 5 b.i.d. 10/03:Haldol discontinued modafinil low-dose monitor for psychosis or agitation continue discharge planning 10/06: May need to firm healthcare proxy calls have been placed to sister to try to help in discharge planning. Referrals made. Patient cooperative with care 10/07:Pharmacy ordering Abilify maintain a increase modafinil 100 mg patient remains flat passive depressed some improvement noted no current paranoia noted continue discharge planning no current safe discharge plan 10/08: Increase Lamictal 100 mg Abilify Maintena 400 mg hold modafinil unclear if was overly stimulating patient continues to present internally preoccupied. 10/09:Healthcare proxy invoked discharge planning continue Lamictal Abilify pending maintain a 10/10:Healthcare proxy invoked new CV signed discharge planning. 10/11 keep same treatment 10/12 keep same treatment 10/13: Continue plan of care Lamictal Abilify discharge planning sertraline 10/14: stable. continue current mgmt. 10/15: stable. continue current mgmt. 10/16: stable presentation. continue current mgmt. 10/17: as for yesterday. 10/18: no changes. 10/19: stabel, safe. no change. 10/20: no change in presentation. calm, cooperative. active on unit, social with select peers, attending groups. Pt reports feeling alright . denies SI/HI/VH/AH. Social work waiting to hear from possible placement location. Continue current tx plan. 10/21: continue current tx plan. awaiting placement. 10/22: calm, cooperative. active on unit, social with select peers, attending groups. Pt reports feeling good ; pt stated, I'm waiting to see where I'm going . denies SI/HI/VH/AH. Showered with encouragement. 10/23: continue current tx plan. 10/24: calm, cooperative. active on unit, social with select peers, attending groups. Pt reports feeling good ; pt stated, I just want a place to live . 10/25- likely at baseline for him- CTP 10/26 CTP likely needs placement 10/27: continue current tx plan. awaiting placement. 10/28: Similar to yesterday. No change in presentation. 10/29: Pt reports feeling good ;pt stated, just waiting for a place to live . denies any issues at this time. 10/30: calm, cooperative. active on unit, social with select peers, attending groups. Pt reports feeling worried about where I am going to live . denies any issues at this time. 10/21: no change in presentation. continue current tx plan. 11/01: continue current management and treatment plan. 11/02: Continue current management and treatment plan. 11/03: Continue current management and treatment plan. 11/04: Active on unit. calm, cooperative. social with select peers, attending groups. denies any issues at this time. He reports sleeping well. Pt reports he would be interested in applying for [facility] services; social work aware. 11/05: Active on unit. calm, cooperative. social with select peers, attending groups. denies any issues at this time. Pt reports feeling okay ; he reports anxiety regarding placement. Continue current tx plan. 11/07/23 [facility] referral has appropriate concerns re living stuation cont abilify lamictal 11/08/23 Pt cooperative with care d/c planning working with sw cont d/c planning cont lamictal abilify 11/12/23 Patient increasingly despairing aware of no clear discharge plan periods needs cuing for much functioning limited social engaged needs help regarding diabetes and medication compliance reportedly had been rejected by multiple rest homes patient not threatening intermittently hopeless helpless very limited family contact at this time 11/13/23 pt flat depressed hopeless helpless unable to fx without structure 11/15 continue tx. 11/16 continue tx. 11/18/2023 Continue plan of care referral to [facility] TSH low will decrease levothyroxine 11/19/23 Pt flat dysphor ic inc hopeless helpless lamictal 150 hs dec levothyroxine 150 d/c planning cont 11/20/23 lamictal inc d/c planning [facility] referral 12/02/2023 Continue Lamictal Abilify patient cooperative with care gets despairing at times regarding lack of family support problematic discharge planning in relationship to finding suitable structured place to live 12/02: Social with peers. Per nursing, pt did not sleep last night. Pt reports he did not sleeping because he wasn't tired but feel okay ; ordered Ativan 1mg PO bedtime for tonight, pt aware. 12/03: In bed sleeping, pt reports he is catching up on sleep from the night before. Calm, cooperative. T/W and wafer polishing lead worker, Billie, with pt to discuss possibly going to the [facility]. Pt reports he would like to call his sister and speak to her before deciding. DC Ativan. 12/04: Active on unit, social with peers. attending groups. T/W and wafer polishing lead worker, Billie, met with pt to discuss discharge plan. Pt reports he doesn't know if he would want to go to a homeless penitentiary; he states he would rather live on the street because I've done it before . Pt encouraged to consider benefits of going to a penitentiary with the winter months coming; he agreed to doing phone intake with social insurance adviser on Saturday with [facility]. 12/05: Pt presents similar to yesterday. Continues to perseverate about [facility] being a penitentiary and not a program; He continues to agree to do phone intake on Saturday. Discussed VARGAS, pt reports he want time to consider d/t not liking needles . 12/08: Pt had phone interview with [facility], however, after multiple attempts at calling them, no one at [facility] picked up the phone to conduct interview. wafer polishing lead worker to get into contact with them again. Pt denies any issues at this time. 12/09: Active on unit, social with peers. Pt denies any issues at this time. Patient agreed to receiving Abilify Maintena; risks/benefits reviewed. Waiting on placement. 12/10: Patient received Abilify Maintena yesterday. He denies any side effects. Pleasant. Waiting on placement. 12/11: continue current tx plan. 12/12: similar to days prior. waiting on placement. continue current tx plan. 12/13: appearing more depressed or demoralized. notes lots of people come and go. continue current mgmt. 12/14: same as for yesterday: find me a place to live? continue current mgmt. 12/15: out and about more. otherwise stable. continue current mgmt. 12/16: continue current tx plan. 12/17: continue current tx plan. 12/18: awaiting placement. denies any issues. 12/19: Pt reports feeling alright ; Social work continues to work on placement. Pt denies any issues at this time. Pt reports sleeping well. 12/20: Continue plan of care 12/21: Continue plan of care 12/22: continue current tx plan. 12/23: continue tx plan. 12/24: continue tx plan. 12/25: similar to days prior. waiting on placement. 12/26: Continue current tx plan. 12/27: Continue current management and treatment plan. 12/28: Continue current management and treatment plan. 12/29: In bed, tested positive for Covid. Vomited x1 per nursing. Pt reports feeling okay ; sleeping most of shift. Continue current tx plan. 12/30: Pt reports feeling okay ; continues on isolation d/t being Covid positive. Utilizing IPad. Pt reports sleeping well. denies SI/HI/VH/AH. Has not vomited today. 12/31: Pt reports feeling alright ; pt stated, I still have a stuffy nose, cough and headache but I'm starting to feel better . continues on isolation. denies other issues at this time. Continue current tx plan. 01/01: pt reports covid symptoms are improving. continues waiting on placement. 01/02: Continue tx plan. 01/05/24: no changes. 01/05: Active on unit. Pt reports feeling okay today; denies any issues at this time. pt had meeting with [facility] to be placed on list for temporary placement; pt declined. Dr. Gonzalez to speak to patient regarding this. 01/06: Discussed placement; pt reports he is thinking about saying yes to the motel . pt reports he does not believe his sister or social insurance adviser that he has money saved in the bank. Pt believes if he left to go to the motel he would be stuck there with no money . Social work to discuss with pt. 01/07: Active on unit. social with peers. denies any issues. Pt reports feeling okay ; reports he is still thinking about where he will go after discharge. Reason for continued inpatient stay Substantial Risk for: other (waiting on placement.) Time Spent With Patient Time: Total time managing care of this patient today _20___ minutes.
[2024-01-08 11:53] LABS: Glucose, Whole Blood 190 mg/dL (60-115)
[2024-01-08] MEDS: Insulin Lispro 100 UNIT/ML 3 ML VIAL SUBCUT ×2 (12:19→20:55)
[2024-01-08 16:46] LABS: Glucose, Whole Blood 138 mg/dL (60-115)
[2024-01-08] MEDS: metFORMIN HCl ER 500 MG TAB.ER.24H 1000 MG PO (17:15)
[2024-01-08 18:50] VITALS: BP 116/69; PULSE 84; RESP 18; TEMP 36.2; O2SAT 95
[2024-01-08 20:21] LABS: Glucose, Whole Blood 196 mg/dL (60-115)
[2024-01-08] MEDS: Insulin Glargine,Hum.rec.anlog 100 UNIT/ML 10 ML VIAL 20 UNIT SUBCUT (20:52)
[2024-01-08] MEDS: lamoTRIgine 100 MG TABLET 150 MG PO (20:56)
[2024-01-09 07:00] VITALS: BMI 32.4
[2024-01-09 07:38] LABS: Glucose, Whole Blood 116 mg/dL (60-115)
[2024-01-09 08:00] VITALS: BP 119/78; PULSE 74; RESP 18; TEMP 36.8; O2SAT 97
[2024-01-09] MEDS: Memantine HCl 5 MG TABLET PO ×2 (08:40→20:33)
[2024-01-09] MEDS: Sertraline HCL 100 MG TABLET PO (08:40)
[2024-01-09] MEDS: Levothyroxine Sodium 150 MCG TABLET PO (08:41)
[2024-01-09 10:31] LABS: Creatinine Clr Calc Pharmacy 91.7; Estimated Glomerular Filt Rate > 60
--- NOTE | 2024-01-09 10:44 | P.PNPSI_ITS ---
Subjective Subjective Date of Service: 01/09/24 Reason For Visit: paranoia cognitive impairment Subjective Notes: Conditional Voluntary Interim History: Active on unit. social with peers. denies any issues. Pt reports feeling okay ; waiting on placement. Medication Compliance: Yes Side effects from medications: No Attending Groups: Yes Review of Systems Constitutional: Reports as per HPI Eyes: Reports as per HPI Reports as per HPI Cardiovascular: Reports as per HPI Respiratory: Reports as per HPI Gastrointestinal: Reports as per HPI Genitourinary: Reports as per HPI Musculoskeletal: Reports as per HPI Skin/Breast: Reports as per HPI Reports as per HPI Psychiatric: Reports as per HPI Endocrine: Reports as per HPI Hematologic/Lymphatic: Reports as per HPI Allergic/Immunologic: Reports as per HPI 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: Intermediate Impaired Diagnostics Vital Signs (24Hr): Vital Signs - 24 hr 01/08/24 18:50 01/09/24 08:00 Temperature 97.2 F 98.2 F Pulse Rate 84 74 Respiratory Rate 18 18 Blood Pressure 116/69 119/78 Pulse Oximetry 95 97 Oxygen Delivery Method Room Air Room Air BMI result Body Mass Index 32.3 Labs 09/10/23 20:00 01/09/24 09:43 Labs: Laboratory Results - last 48 hr 01/07/24 01/07/24 01/07/24 11:39 16:49 21:14 Creatinine Estim Creat Clear Calc Estimated GFR POC Glucose 168 H 247 H 144 H 01/08/24 01/08/24 01/08/24 07:57 11:49 16:35 Creatinine Estim Creat Clear Calc Estimated GFR POC Glucose 129 H 190 H 138 H 01/08/24 01/09/24 01/09/24 20:18 07:26 09:43 Creatinine 1.00 Estim Creat Clear Calc 91.7 Estimated GFR > 60 POC Glucose 196 H 116 H Imaging Radiology Impressions: ITS Impressions Brain MRI 09/19/23 20:33 IMPRESSION: 1. No demonstrated acute intracranial abnormalities. 2. Chronic mild to moderate nonspecific white matter changes, most notably in the deep white matter of the right frontal lobe. Mild to moderate generalized cerebral volume loss. Medications Medications Current Medications Acetaminophen (Acetaminophen 325 Mg Tablet) 650 mg PO Q6H PRN PRN Reason: Headache/Pain Mild Scale (1-3) Last Admin: 01/01/24 08:45 Dose: 650 mg Al Hydroxide/Mg Hydroxide (Magnesium Hydrox/Alum Hydrox 30 Ml Oral.Susp) 30 ml PO Q6H PRN PRN Reason: Heartburn/Nausea Last Admin: 11/27/23 10:48 Dose: 30 ml Aripiprazole (Aripiprazole Er 300 Mg Suser.Syr) 300 mg IM Q28D@0900 [facility] Last Admin: 01/08/24 09:00 Dose: 300 mg Benzocaine (Throat Lozenge, Medicated Lozenge) 1 lozenge MUCOUS MEM Q2H PRN PRN Reason: Sore Throat Last Admin: 12/30/23 20:59 Dose: 1 lozenge Benztropine Mesylate (Benztropine Mesylate 0.5 Mg Tablet) 0.5 mg PO TID PRN PRN Reason: Extrapyramidal Effects Glucose (Glucose Gel 15 Gm Gel..Gram.) 15 gm PO Q15M PRN; Protocol PRN Reason: per Hypoglycemia Standing Ord. Guaifenesin/Dextromethorphan (Guaifenesin Dm 100/10/5 Ml 5 Ml Syrup) 5 ml PO Q4H PRN PRN Reason: Cough Last Admin: 01/06/24 22:48 Dose: 5 ml Hydroxyzine HCl (Hydroxyzine Hcl 25 Mg Tablet) 25 mg PO Q6H PRN PRN Reason: Anxiety Last Admin: 12/30/23 20:59 Dose: 25 mg Dextrose (D10) 250 mls @ 750 mls/hr IV Q15M PRN; Protocol PRN Reason: per Hypoglycemia Standing Ord. Insulin Glargine (Insulin Glargine,Hum.Rec.Anlog 100 Unit/Ml 10 Ml Vial) 20 unit SUBCUT BEDTIME [facility] Last Admin: 01/08/24 20:52 Dose: 20 unit Insulin Human Lispro (Insulin Lispro 100 Unit/Ml 3 Ml Vial) 0 unit SUBCUT QIDACHS [facility]; Protocol Last Admin: 01/09/24 08:41 Dose: Not Given Lamotrigine (Lamotrigine 100 Mg Tablet) 150 mg PO BEDTIME [facility] Last Admin: 01/08/24 20:56 Dose: 150 mg Levothyroxine Sodium (Levothyroxine Sodium 150 Mcg Tablet) 150 mcg PO DAILY@0800 [facility] Last Admin: 01/09/24 08:41 Dose: 150 mcg Magnesium Hydroxide (Milk Of Magnesia 30 Ml Oral.Susp) 30 ml PO DAILY PRN PRN Reason: Constipation Memantine (Memantine Hcl 5 Mg Tablet) 5 mg PO BID [facility] Last Admin: 01/09/24 08:40 Dose: 5 mg Metformin HCl (Metformin Hcl Er 500 Mg Tab.Er.24h) 1,000 mg PO DAILY@1700 [facility] Last Admin: 01/08/24 17:15 Dose: 1,000 mg Ondansetron HCl (Ondansetron Odt 8 Mg Tab.Rapdis) 8 mg TRANSLINGU Q8H PRN PRN Reason: Nausea and Vomiting Last Admin: 12/31/23 08:39 Dose: 8 mg Sertraline HCl (Sertraline Hcl 100 Mg Tablet) 100 mg PO DAILY [facility] Last Admin: 01/09/24 08:40 Dose: 100 mg Simethicone (Simethicone 80 Mg Tab.Chew) 80 mg PO QIDWMHS PRN PRN Reason: Gas Trazodone HCl (Trazodone Hcl 50 Mg Tablet) 50 mg PO BEDTIME MRX1 PRN PRN Reason: Insomnia Last Admin: 01/07/24 21:52 Dose: 50 mg Allergies Allergies Allergy/AdvReac Type Severity Reaction Status Date / Time amoxicillin [AMOXICILLIN] Allergy Mild VOMITING/ABD Verified 09/10/23 19:44 PAIN Assessment & Plan Assessment & Plan (1) Schizoaffective disorder: Status: Acute Code(s): F25.9 - Schizoaffective disorder, unspecified (2) Hypothyroidism: Status: Acute Code(s): E03.9 - Hypothyroidism, unspecified (3) Type 2 diabetes mellitus: Status: Acute Code(s): E11.9 - Type 2 diabetes mellitus without complications (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 Plan: CV 15 minute safety checks Continue home medications: Haldol 10mg PO daily Synthroid 200mcg PO daily Obtain labs; A1C/POCs Obtain collateral from sister Obtain records from last hospitalization. MOCA Referral for DMH services if patient is agreeable. encourage medication compliance;consider VARGAS discharge planning 09/11: Elevated fasting blood sugar elevated hemoglobin A1c 9.2 med consult placed put in point of care needed will start metformin Would benefit from clarity over recent hospitalization what this were done details regarding treatment continue Haldol unclear if patient has Healthcare proxy his [place] was low slowed cognition with poor details in depth at times during blankly regarding making judgments Unclear if any of this relates to past coma or 2 hypothyroidism. He does seem more impaired than when last seen unclear when last imaging was. Continue Haldol sitter neuro indira involvement regarding diagnostic picture. Patient does remain paranoid blunted suspicious apathetic. He might benefit from longer- term placement if available and appropriate at a later time involved DMH involvement would be quite helpful 09/12: cont haldol get records ? hcp ? start antidep unclear hx 09/13: Keeping to self. More talkative today. Pt concerned he will be transferred to [facility]. Pt stated, The paper I signed yesterday. Are you going to send me back to the last hospital? That place was horrible . Pt was educated he signed a release of information with Dr. Gonzalez to obtain records from [facility]. Pt was given a copy of the release he signed. Despite this, pt continues to be anxious about being transferred. Pt denies SI/HI/VH/AH. 09/14: Keeping to self. active on unit. showered. Pt reports feeling alright today; pt reports he is worried about where I'm going to go . Pt continues concerned he will be transferred to [facility]. Pt denies SI/HI/VH/AH. 09/15:Pt reports feeling alright today; pt continues to report he is worried about where I'm going to go . Responding with brief responses. Guarded. Observed standing in one place for a long period of time. Appears confused. Pt denies SI/HI/VH/AH. T/W spoke to patient's sister, Ros, with patients verbal consent. Ros reports concerns regarding patients ability to make decisions regarding his mental and physical health. She plans on contacting legal advice on obtaining guardianship of patient. 09/16:Patient's presents similar to yesterday's presentation. Responding with brief responses. Guarded. Observed standing in one place for a long period of time, when asked what he is doing, pt stated, I don't know . Pt reports he plans on contacting his sister today and try to convince her for me to stay there . Pt denies SI/HI/VH/AH. Continue current tx plan. 09/17: brief responses. Guarded. 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 Pt denies SI/HI/VH/AH. T/W and Dr. Gonzalez spoke to patient's sister, Ros. Ros stated being [place] HCP and plans on finding document. She plans on coming to the hospital on Saturday to be present for [facility] intake. 09/21: No changes 09/22:Patient flat apathetic difficult insight and judgment his sister is healthcare proxy if needed patient is accepting medical treatment Referral to [facility] 09/23:Considers starting Haldol Decanoate patient is agreeable superficially difficulty with exec fx was seen [facility] 09/24:Pt seen in f/u mood flat dysphoric difficulty engaging in conversation preoccupied with thought he wont be living with family thing slowed apathetic no clear response with namenda ? some improvement inc lamictal start low dose sertraline inc lamictal ck tsh 09/25:Start Abilify as augmentation with Haldol see if can be more stimulating regarding depressed mood apathetic limited engagement sertraline 50 mg Lamictal 25 b.i.d. referral to [facility] which would have structure unclear if patient can engage with this he remains quite depressed has delusional beliefs regarding housing and that things have been done he has repeatedly tried to reach out to his sister denies active SI needs much help dressing talking with others encouragement to eat severe thought blocking Abilify might be more stimulating than Haldol which can be more dulling 09/26:Abilify started sertraline Lamictal encouraged step-down to [facility]' encourage reality orientation denies active SI 09/27: Continue current regimen and plans 09/28: Continue current regimen and plans. 09/29: Referral to [facility]' increase Abilify to 5 mg daily eventually try and taper Haldol sertraline 50 mg daily 09/30:Increase Abilify to 10 mg lower Haldol to 7 mg continue sertraline and Lamictal 10/01:Abilify increased to 10 mg continue to taper Haldol sertraline 100 mg Lamictal increased to 75 mg patient apathetic withdrawn difficulty with placement some paranoia continues difficulty with decision making at times. Not physically aggressive internally preoccupied seems somewhat improved with Abilify sertraline Continue discharge planning 10/02:Patient somewhat blunted flat slowed thinking during the day times staring. Change Abilify to 10 mg at bedtime. Scheduled Haldol will lowered to 2.5 mg Continue sertraline 100 mg Namenda 5 b.i.d. 10/03:Haldol discontinued modafinil low-dose monitor for psychosis or agitation continue discharge planning 10/06: May need to firm healthcare proxy calls have been placed to sister to try to help in discharge planning. Referrals made. Patient cooperative with care 10/07:Pharmacy ordering Abilify maintain a increase modafinil 100 mg patient remains flat passive depressed some improvement noted no current paranoia noted continue discharge planning no current safe discharge plan 10/08: Increase Lamictal 100 mg Abilify Maintena 400 mg hold modafinil unclear if was overly stimulating patient continues to present internally preoccupied. 10/09:Healthcare proxy invoked discharge planning continue Lamictal Abilify pending maintain a 10/10:Healthcare proxy invoked new CV signed discharge planning. 10/11 keep same treatment 10/12 keep same treatment 10/13: Continue plan of care Lamictal Abilify discharge planning sertraline 10/14: stable. continue current mgmt. 10/15: stable. continue current mgmt. 15: stable presentation. continue current mgmt. 16: as for yesterday. 10/18: no changes. 10/19: stabel, safe. no change. 10/20: no change in presentation. calm, cooperative. active on unit, social with select peers, attending groups. Pt reports feeling alright . denies SI/HI/VH/AH. Social work waiting to hear from possible placement location. Continue current tx plan. 10/21: continue current tx plan. awaiting placement. 10/22: calm, cooperative. active on unit, social with select peers, attending groups. Pt reports feeling good ; pt stated, I'm waiting to see where I'm going . denies SI/HI/VH/AH. Showered with encouragement. 10/23: continue current tx plan. 10/24: calm, cooperative. active on unit, social with select peers, attending groups. Pt reports feeling good ; pt stated, I just want a place to live . 10/25- likely at baseline for him- CTP 10/26 CTP likely needs placement 10/27: continue current tx plan. awaiting placement. 10/28: Similar to yesterday. No change in presentation. 10/29: Pt reports feeling good ;pt stated, just waiting for a place to live . denies any issues at this time. 10/30: calm, cooperative. active on unit, social with select peers, attending groups. Pt reports feeling worried about where I am going to live . denies any issues at this time. 10/21: no change in presentation. continue current tx plan. 11/01: continue current management and treatment plan. 11/02: Continue current management and treatment plan. 11/03: Continue current management and treatment plan. 11/04: Active on unit. calm, cooperative. social with select peers, attending groups. denies any issues at this time. He reports sleeping well. Pt reports he would be interested in applying for [facility] services; social work aware. 11/05: Active on unit. calm, cooperative. social with select peers, attending groups. denies any issues at this time. Pt reports feeling okay ; he reports anxiety regarding placement. Continue current tx plan. 11/07/23 DMH referral has appropriate concerns re living stuation cont abilify lamictal 11/08/23 Pt cooperative with care d/c planning working with sw cont d/c planning cont lamictal abilify 11/12/23 Patient increasingly despairing aware of no clear discharge plan periods needs cuing for much functioning limited social engaged needs help regarding diabetes and medication compliance reportedly had been rejected by multiple rest homes patient not threatening intermittently hopeless helpless very limited family contact at this time 11/13/23 pt flat depressed hopeless helpless unable to fx without structure 11/15 continue tx. 11/16 continue tx. 11/18/2023 Continue plan of care referral to [facility] TSH low will decrease levothyroxine 11/19/23 Pt flat dysphor ic inc hopeless helpless lamictal 150 hs dec levothyroxine 150 d/c planning cont 11/20/23 lamictal inc d/c planning dm referral 12/02/2023 Continue Lamictal Abilify patient cooperative with care gets despairing at times regarding lack of family support problematic discharge planning in relationship to finding suitable structured place to live 12/02: Social with peers. Per nursing, pt did not sleep last night. Pt reports he did not sleeping because he wasn't tired but feel okay ; ordered Ativan 1mg PO bedtime for tonight, pt aware. 12/03: In bed sleeping, pt reports he is catching up on sleep from the night before. Calm, cooperative. T/W and baking factory worker, Billie, with pt to discuss possibly going to the [facility]. Pt reports he would like to call his sister and speak to her before deciding. DC Ativan. 12/04: Active on unit, social with peers. attending groups. T/W and baking factory workerBillie, met with pt to discuss discharge plan. Pt reports he doesn't know if he would want to go to a homeless long term; he states he would rather live on the street because I've done it before . Pt encouraged to consider benefits of going to a long term with the winter months coming; he agreed to doing phone intake with social worker clinical on Saturday with [facility]. 12/05: Pt presents similar to yesterday. Continues to perseverate about [facility] being a long term and not a program; He continues to agree to do phone intake on Saturday. Discussed VARGAS, pt reports he want time to consider d/t not liking needles . 12/08: Pt had phone interview with [facility], however, after multiple attempts at calling them, no one at [facility] picked up the phone to conduct interview. baking factory worker to get into contact with them again. Pt denies any issues at this time. 12/09: Active on unit, social with peers. Pt denies any issues at this time. Patient agreed to receiving Abilify Maintena; risks/benefits reviewed. Waiting on placement. 12/10: Patient received Abilify Maintena yesterday. He denies any side effects. Pleasant. Waiting on placement. 12/11: continue current tx plan. 12/12: similar to days prior. waiting on placement. continue current tx plan. 12/13: appearing more depressed or demoralized. notes lots of people come and go. continue current mgmt. 12/14: same as for yesterday: find me a place to live? continue current mgmt. 12/15: out and about more. otherwise stable. continue current mgmt. 12/16: continue current tx plan. 12/17: continue current tx plan. 12/18: awaiting placement. denies any issues. 12/19: Pt reports feeling alright ; Social work continues to work on placement. Pt denies any issues at this time. Pt reports sleeping well. 12/20: Continue plan of care 12/21: Continue plan of care 12/22: continue current tx plan. 12/23: continue tx plan. 12/24: continue tx plan. 12/25: similar to days prior. waiting on placement. 12/26: Continue current tx plan. 12/27: Continue current management and treatment plan. 12/28: Continue current management and treatment plan. 12/29: In bed, tested positive for Covid. Vomited x1 per nursing. Pt reports feeling okay ; sleeping most of shift. Continue current tx plan. 12/30: Pt reports feeling okay ; continues on isolation d/t being Covid positive. Utilizing IPad. Pt reports sleeping well. denies SI/HI/VH/AH. Has not vomited today. 12/31: Pt reports feeling alright ; pt stated, I still have a stuffy nose, cough and headache but I'm starting to feel better . continues on isolation. denies other issues at this time. Continue current tx plan. 01/01: pt reports covid symptoms are improving. continues waiting on placement. 01/02: Continue tx plan. 01/05/24: no changes. 01/05: Active on unit. Pt reports feeling okay today; denies any issues at this time. pt had meeting with [facility] to be placed on list for temporary placement; pt declined. Dr. Gonzalez to speak to patient regarding this. 01/06: Discussed placement; pt reports he is thinking about saying yes to the motel . pt reports he does not believe his sister or social worker clinical that he has money saved in the bank. Pt believes if he left to go to the motel he would be stuck there with no money . Social work to discuss with pt. 01/07: Active on unit. social with peers. denies any issues. Pt reports feeling okay ; reports he is still thinking about where he will go after discharge. 01/08: waiting on placement. continue current tx plan. Reason for continued inpatient stay Substantial Risk for: other (awaiting placement.) Time Spent With Patient Time: Total time managing care of this patient today _20___ minutes.
[2024-01-09 12:07] LABS: Glucose, Whole Blood 150 mg/dL (60-115)
[2024-01-09 16:58] LABS: Glucose, Whole Blood 142 mg/dL (60-115)
[2024-01-09] MEDS: metFORMIN HCl ER 500 MG TAB.ER.24H 1000 MG PO (17:25)
[2024-01-09 20:00] VITALS: BP 118/74; PULSE 80; RESP 18; TEMP 36.9; O2SAT 100
[2024-01-09 20:16] LABS: Glucose, Whole Blood 247 mg/dL (60-115)
[2024-01-09] MEDS: lamoTRIgine 100 MG TABLET 150 MG PO (20:34)
[2024-01-09] MEDS: Insulin Lispro 100 UNIT/ML 3 ML VIAL SUBCUT (20:35)
[2024-01-09] MEDS: Insulin Glargine,Hum.rec.anlog 100 UNIT/ML 10 ML VIAL 20 UNIT SUBCUT (20:36)
[2024-01-10 07:43] VITALS: BP 134/77; PULSE 94; RESP 16; TEMP 36.9; O2SAT 98
[2024-01-10 08:08] LABS: Glucose, Whole Blood 101 mg/dL (60-115)
[2024-01-10] MEDS: Levothyroxine Sodium 150 MCG TABLET PO (08:41)
[2024-01-10] MEDS: Sertraline HCL 100 MG TABLET PO (08:41)
[2024-01-10] MEDS: Memantine HCl 5 MG TABLET PO ×2 (08:41→21:12)
[2024-01-10 11:52] LABS: Glucose, Whole Blood 107 mg/dL (60-115)
--- NOTE | 2024-01-10 12:08 | HO.PSYCHPN ---
Subjective Subjective Date of Service: 01/10/24 Reason For Visit: paranoia cognitive impairment Subjective Notes: Conditional Voluntary Interim History: Active on unit. social with peers. denies any issues. Patient continues to wait on placement. Medication Compliance: Yes Side effects from medications: No Attending Groups: Yes Review of Systems Constitutional: Reports as per HPI Eyes: Reports as per HPI Reports as per HPI Cardiovascular: Reports as per HPI Respiratory: Reports as per HPI Gastrointestinal: Reports as per HPI Genitourinary: Reports as per HPI Musculoskeletal: Reports as per HPI Skin/Breast: Reports as per HPI Reports as per HPI Psychiatric: Reports as per HPI Endocrine: Reports as per HPI Hematologic/Lymphatic: Reports as per HPI Allergic/Immunologic: Reports as per HPI 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: Tso Impaired Diagnostics Vital Signs (24Hr): Vital Signs - 24 hr 01/09/24 20:00 01/10/24 07:43 Temperature 98.4 F 98.5 F Pulse Rate 80 94 Respiratory Rate 18 16 Blood Pressure 118/74 134/77 Pulse Oximetry 100 98 Oxygen Delivery Method Room Air Room Air BMI result Body Mass Index 32.4 Labs 09/10/23 20:00 01/09/24 09:43 Labs: Laboratory Results - last 48 hr 01/08/24 01/08/24 01/09/24 16:35 20:18 07:26 Creatinine Estim Creat Clear Calc Estimated GFR POC Glucose 138 H 196 H 116 H 01/09/24 01/09/24 01/09/24 09:43 12:03 16:49 Creatinine 1.00 Estim Creat Clear Calc 91.7 Estimated GFR > 60 POC Glucose 150 H 142 H 01/09/24 01/10/24 01/10/24 20:11 07:56 11:47 Creatinine Estim Creat Clear Calc Estimated GFR POC Glucose 247 H 101 107 Imaging Radiology Impressions: ITS Impressions Brain MRI 09/19/23 20:33 IMPRESSION: 1. No demonstrated acute intracranial abnormalities. 2. Chronic mild to moderate nonspecific white matter changes, most notably in the deep white matter of the right frontal lobe. Mild to moderate generalized cerebral volume loss. Medications Medications Current Medications Acetaminophen (Acetaminophen 325 Mg Tablet) 650 mg PO Q6H PRN PRN Reason: Headache/Pain Mild Scale (1-3) Last Admin: 01/01/24 08:45 Dose: 650 mg Al Hydroxide/Mg Hydroxide (Magnesium Hydrox/Alum Hydrox 30 Ml Oral.Susp) 30 ml PO Q6H PRN PRN Reason: Heartburn/Nausea Last Admin: 11/27/23 10:48 Dose: 30 ml Aripiprazole (Aripiprazole Er 300 Mg Suser.Syr) 300 mg IM Q28D@0900 [facility] Last Admin: 01/08/24 09:00 Dose: 300 mg Benzocaine (Throat Lozenge, Medicated Lozenge) 1 lozenge MUCOUS MEM Q2H PRN PRN Reason: Sore Throat Last Admin: 12/30/23 20:59 Dose: 1 lozenge Benztropine Mesylate (Benztropine Mesylate 0.5 Mg Tablet) 0.5 mg PO TID PRN PRN Reason: Extrapyramidal Effects Glucose (Glucose Gel 15 Gm Gel..Gram.) 15 gm PO Q15M PRN; Protocol PRN Reason: per Hypoglycemia Standing Ord. Guaifenesin/Dextromethorphan (Guaifenesin Dm 100/10/5 Ml 5 Ml Syrup) 5 ml PO Q4H PRN PRN Reason: Cough Last Admin: 01/06/24 22:48 Dose: 5 ml Hydroxyzine HCl (Hydroxyzine Hcl 25 Mg Tablet) 25 mg PO Q6H PRN PRN Reason: Anxiety Last Admin: 12/30/23 20:59 Dose: 25 mg Dextrose (D10) 250 mls @ 750 mls/hr IV Q15M PRN; Protocol PRN Reason: per Hypoglycemia Standing Ord. Insulin Glargine (Insulin Glargine,Hum.Rec.Anlog 100 Unit/Ml 10 Ml Vial) 20 unit SUBCUT BEDTIME [facility] Last Admin: 01/09/24 20:36 Dose: 20 unit Insulin Human Lispro (Insulin Lispro 100 Unit/Ml 3 Ml Vial) 0 unit SUBCUT QIDACHS [facility]; Protocol Last Admin: 01/10/24 11:49 Dose: Not Given Lamotrigine (Lamotrigine 100 Mg Tablet) 150 mg PO BEDTIME [facility] Last Admin: 01/09/24 20:34 Dose: 150 mg Levothyroxine Sodium (Levothyroxine Sodium 150 Mcg Tablet) 150 mcg PO DAILY@0800 [facility] Last Admin: 01/10/24 08:41 Dose: 150 mcg Magnesium Hydroxide (Milk Of Magnesia 30 Ml Oral.Susp) 30 ml PO DAILY PRN PRN Reason: Constipation Memantine (Memantine Hcl 5 Mg Tablet) 5 mg PO BID [facility] Last Admin: 01/10/24 08:41 Dose: 5 mg Metformin HCl (Metformin Hcl Er 500 Mg Tab.Er.24h) 1,000 mg PO DAILY@1700 [facility] Last Admin: 01/09/24 17:25 Dose: 1,000 mg Ondansetron HCl (Ondansetron Odt 8 Mg Tab.Rapdis) 8 mg TRANSLINGU Q8H PRN PRN Reason: Nausea and Vomiting Last Admin: 12/31/23 08:39 Dose: 8 mg Sertraline HCl (Sertraline Hcl 100 Mg Tablet) 100 mg PO DAILY [facility] Last Admin: 01/10/24 08:41 Dose: 100 mg Simethicone (Simethicone 80 Mg Tab.Chew) 80 mg PO QIDWMHS PRN PRN Reason: Gas Trazodone HCl (Trazodone Hcl 50 Mg Tablet) 50 mg PO BEDTIME MRX1 PRN PRN Reason: Insomnia Last Admin: 01/07/24 21:52 Dose: 50 mg Allergies Allergies Allergy/AdvReac Type Severity Reaction Status Date / Time amoxicillin [AMOXICILLIN] Allergy Mild VOMITING/ABD Verified 09/10/23 19:44 PAIN Assessment & Plan Assessment & Plan (1) Schizoaffective disorder: Status: Acute Code(s): F25.9 - Schizoaffective disorder, unspecified (2) Hypothyroidism: Status: Acute Code(s): E03.9 - Hypothyroidism, unspecified (3) Type 2 diabetes mellitus: Status: Acute Code(s): E11.9 - Type 2 diabetes mellitus without complications (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 Plan: CV 15 minute safety checks Continue home medications: Haldol 10mg PO daily Synthroid 200mcg PO daily Obtain labs; A1C/POCs Obtain collateral from sister Obtain records from last hospitalization. MOCA Referral for DMH services if patient is agreeable. encourage medication compliance;consider VARGAS discharge planning 09/11: Elevated fasting blood sugar elevated hemoglobin A1c 9.2 med consult placed put in point of care needed will start metformin Would benefit from clarity over recent hospitalization what this were done details regarding treatment continue Haldol unclear if patient has Healthcare proxy his [place] was low slowed cognition with poor details in depth at times during blankly regarding making judgments Unclear if any of this relates to past coma or 2 hypothyroidism. He does seem more impaired than when last seen unclear when last imaging was. Continue Haldol sitter neuro indira involvement regarding diagnostic picture. Patient does remain paranoid blunted suspicious apathetic. He might benefit from longer-term placement if available and appropriate at a later time involved DMH involvement would be quite helpful 09/12: cont haldol get records ? hcp ? start antidep unclear hx 09/13: Keeping to self. More talkative today. Pt concerned he will be transferred to [facility]. Pt stated, The paper I signed yesterday. Are you going to send me back to the last hospital? That place was horrible . Pt was educated he signed a release of information with Dr. Gonzalez to obtain records from [facility]. Pt was given a copy of the release he signed. Despite this, pt continues to be anxious about being transferred. Pt denies SI/HI/VH/AH. 09/14: Keeping to self. active on unit. showered. Pt reports feeling alright today; pt reports he is worried about where I'm going to go . Pt continues concerned he will be transferred to [facility]. Pt denies SI/HI/VH/AH. 09/15:Pt reports feeling alright today; pt continues to report he is worried about where I'm going to go . Responding with brief responses. Guarded. Observed standing in one place for a long period of time. Appears confused. Pt denies SI/HI/VH/AH. T/W spoke to patient's sister, Ros, with patients verbal consent. Ros reports concerns regarding patients ability to make decisions regarding his mental and physical health. She plans on contacting legal advice on obtaining guardianship of patient. 09/16:Patient's presents similar to yesterday's presentation. Responding with brief responses. Guarded. Observed standing in one place for a long period of time, when asked what he is doing, pt stated, I don't know . Pt reports he plans on contacting his sister today and try to convince her for me to stay there . Pt denies SI/HI/VH/AH. Continue current tx plan. 09/17: brief responses. Guarded. 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 Pt denies SI/HI/VH/AH. T/W and Dr. Gonzalez spoke to patient's sister, Ros. Ros stated being [place] HCP and plans on finding document. She plans on coming to the hospital on Saturday to be present for [facility] intake. 09/21: No changes 09/22:Patient flat apathetic difficult insight and judgment his sister is healthcare proxy if needed patient is accepting medical treatment Referral to [facility] 09/23:Considers starting Haldol Decanoate patient is agreeable superficially difficulty with exec fx was seen [facility] 09/24:Pt seen in f/u mood flat dysphoric difficulty engaging in conversation preoccupied with thought he wont be living with family thing slowed apathetic no clear response with namenda ? some improvement inc lamictal start low dose sertraline inc lamictal ck tsh 09/25:Start Abilify as augmentation with Haldol see if can be more stimulating regarding depressed mood apathetic limited engagement sertraline 50 mg Lamictal [address] [facility] which would have structure unclear if patient can engage with this he remains quite depressed has delusional beliefs regarding housing and that things have been done he has repeatedly tried to reach out to his sister denies active SI needs much help dressing talking with others encouragement to eat severe thought blocking Abilify might be more stimulating than Haldol which can be more dulling 09/26:Abilify started sertraline Lamictal encouraged step-down to [facility] encourage reality orientation denies active SI 09/27: Continue current regimen and plans 09/28: Continue current regimen and plans. 09/29: Referral to [facility] increase Abilify to 5 mg daily eventually try and taper Haldol sertraline 50 mg daily 09/30:Increase Abilify to 10 mg lower Haldol to 7 mg continue sertraline and Lamictal 10/01:Abilify increased to 10 mg continue to taper Haldol sertraline 100 mg Lamictal increased to 75 mg patient apathetic withdrawn difficulty with placement some paranoia continues difficulty with decision making at times. Not physically aggressive internally preoccupied seems somewhat improved with Abilify sertraline Continue discharge planning 10/02:Patient somewhat blunted flat slowed thinking during the day times staring. Change Abilify to 10 mg at bedtime. Scheduled Haldol will lowered to 2.5 mg Continue sertraline 100 mg Namenda 5 b.i.d. 10/03:Haldol discontinued modafinil low-dose monitor for psychosis or agitation continue discharge planning 10/06: May need to firm healthcare proxy calls have been placed to sister to try to help in discharge planning. Referrals made. Patient cooperative with care 10/07:Pharmacy ordering Abilify maintain a increase modafinil 100 mg patient remains flat passive depressed some improvement noted no current paranoia noted continue discharge planning no current safe discharge plan 10/08: Increase Lamictal 100 mg Abilify Maintena 400 mg hold modafinil unclear if was overly stimulating patient continues to present internally preoccupied. 10/09:Healthcare proxy invoked discharge planning continue Lamictal Abilify pending maintain a 10/10:Healthcare proxy invoked new CV signed discharge planning. 10/11 keep same treatment 10/12 keep same treatment 10/13: Continue plan of care Lamictal Abilify discharge planning sertraline 10/14: stable. continue current mgmt. 10/15: stable. continue current mgmt. 15: stable presentation. continue current mgmt. 16: as for yesterday. 10/18: no changes. 10/19: stabel, safe. no change. 10/20: no change in presentation. calm, cooperative. active on unit, social with select peers, attending groups. Pt reports feeling alright . denies SI/HI/VH/AH. Social work waiting to hear from possible placement location. Continue current tx plan. 10/21: continue current tx plan. awaiting placement. 10/22: calm, cooperative. active on unit, social with select peers, attending groups. Pt reports feeling good ; pt stated, I'm waiting to see where I'm going . denies SI/HI/VH/AH. Showered with encouragement. 10/23: continue current tx plan. 10/24: calm, cooperative. active on unit, social with select peers, attending groups. Pt reports feeling good ; pt stated, I just want a place to live . 10/25- likely at baseline for him- CTP 10/26 CTP likely needs placement 10/27: continue current tx plan. awaiting placement. 10/28: Similar to yesterday. No change in presentation. 10/29: Pt reports feeling good ;pt stated, just waiting for a place to live . denies any issues at this time. 10/30: calm, cooperative. active on unit, social with select peers, attending groups. Pt reports feeling worried about where I am going to live . denies any issues at this time. 10/21: no change in presentation. continue current tx plan. 11/01: continue current management and treatment plan. 11/02: Continue current management and treatment plan. 11/03: Continue current management and treatment plan. 11/04: Active on unit. calm, cooperative. social with select peers, attending groups. denies any issues at this time. He reports sleeping well. Pt reports he would be interested in applying for DMH services; social work aware. 11/05: Active on unit. calm, cooperative. social with select peers, attending groups. denies any issues at this time. Pt reports feeling okay ; he reports anxiety regarding placement. Continue current tx plan. 11/07/23 DMH referral has appropriate concerns re living stuation cont abilify lamictal 11/08/23 Pt cooperative with care d/c planning working with sw cont d/c planning cont lamictal abilify 11/12/23 Patient increasingly despairing aware of no clear discharge plan periods needs cuing for much functioning limited social engaged needs help regarding diabetes and medication compliance reportedly had been rejected by multiple rest homes patient not threatening intermittently hopeless helpless very limited family contact at this time 11/13/23 pt flat depressed hopeless helpless unable to fx without structure 11/15 continue tx. 11/16 continue tx. 11/18/2023 Continue plan of care referral to [facility] TSH low will decrease levothyroxine 11/19/23 Pt flat dysphor ic inc hopeless helpless lamictal 150 hs dec levothyroxine 150 d/c planning cont 11/20/23 lamictal inc d/c planning [facility] referral 12/02/2023 Continue Lamictal Abilify patient cooperative with care gets despairing at times regarding lack of family support problematic discharge planning in relationship to finding suitable structured place to live 12/02: Social with peers. Per nursing, pt did not sleep last night. Pt reports he did not sleeping because he wasn't tired but feel okay ; ordered Ativan 1mg PO bedtime for tonight, pt aware. 12/03: In bed sleeping, pt reports he is catching up on sleep from the night before. Calm, cooperative. T/W and sail lay out worker, Billie, with pt to discuss possibly going to the [facility]. Pt reports he would like to call his sister and speak to her before deciding. DC Ativan. 12/04: Active on unit, social with peers. attending groups. T/W and sail lay out workerBillie, met with pt to discuss discharge plan. Pt reports he doesn't know if he would want to go to a homeless residential; he states he would rather live on the street because I've done it before . Pt encouraged to consider benefits of going to a residential with the winter months coming; he agreed to doing phone intake with social media strategist on Saturday with [facility]. 12/05: Pt presents similar to yesterday. Continues to perseverate about [facility] being a residential and not a program; He continues to agree to do phone intake on Saturday. Discussed VARGAS, pt reports he want time to consider d/t not liking needles . 12/08: Pt had phone interview with [facility], however, after multiple attempts at calling them, no one at [facility] picked up the phone to conduct interview. sail lay out worker to get into contact with them again. Pt denies any issues at this time. 12/09: Active on unit, social with peers. Pt denies any issues at this time. Patient agreed to receiving Abilify Maintena; risks/benefits reviewed. Waiting on placement. 12/10: Patient received Abilify Maintena yesterday. He denies any side effects. Pleasant. Waiting on placement. 12/11: continue current tx plan. 12/12: similar to days prior. waiting on placement. continue current tx plan. 12/13: appearing more depressed or demoralized. notes lots of people come and go. continue current mgmt. 12/14: same as for yesterday: find me a place to live? continue current mgmt. 12/15: out and about more. otherwise stable. continue current mgmt. 12/16: continue current tx plan. 12/17: continue current tx plan. 12/18: awaiting placement. denies any issues. 12/19: Pt reports feeling alright ; Social work continues to work on placement. Pt denies any issues at this time. Pt reports sleeping well. 12/20: Continue plan of care 12/21: Continue plan of care 12/22: continue current tx plan. 12/23: continue tx plan. 12/24: continue tx plan. 12/25: similar to days prior. waiting on placement. 12/26: Continue current tx plan. 12/27: Continue current management and treatment plan. 12/28: Continue current management and treatment plan. 12/29: In bed, tested positive for Covid. Vomited x1 per nursing. Pt reports feeling okay ; sleeping most of shift. Continue current tx plan. 12/30: Pt reports feeling okay ; continues on isolation d/t being Covid positive. Utilizing IPad. Pt reports sleeping well. denies SI/HI/VH/AH. Has not vomited today. 12/31: Pt reports feeling alright ; pt stated, I still have a stuffy nose, cough and headache but I'm starting to feel better . continues on isolation. denies other issues at this time. Continue current tx plan. 01/01: pt reports covid symptoms are improving. continues waiting on placement. 01/02: Continue tx plan. 01/05/24: no changes. 01/05: Active on unit. Pt reports feeling okay today; denies any issues at this time. pt had meeting with [facility] to be placed on list for temporary placement; pt declined. Dr. Gonzalez to speak to patient regarding this. 01/06: Discussed placement; pt reports he is thinking about saying yes to the motel . pt reports he does not believe his sister or social media strategist that he has money saved in the bank. Pt believes if he left to go to the motel he would be stuck there with no money . Social work to discuss with pt. 01/07: Active on unit. social with peers. denies any issues. Pt reports feeling okay ; reports he is still thinking about where he will go after discharge. 01/08: waiting on placement. continue current tx plan. 01/09: Patient continues to wait on placement. Reason for continued inpatient stay Substantial Risk for: other Time Spent With Patient Time: Total time managing care of this patient today _10___ minutes.
[2024-01-10] MEDS: metFORMIN HCl ER 500 MG TAB.ER.24H 1000 MG PO (16:41)
[2024-01-10 16:42] LABS: Glucose, Whole Blood 98 mg/dL (60-115)
[2024-01-10 19:32] VITALS: BP 156/82; PULSE 94; TEMP 36.9; O2SAT 96
[2024-01-10 21:07] LABS: Glucose, Whole Blood 188 mg/dL (60-115)
[2024-01-10] MEDS: lamoTRIgine 100 MG TABLET 150 MG PO (21:12)
[2024-01-10] MEDS: Insulin Glargine,Hum.rec.anlog 100 UNIT/ML 10 ML VIAL 20 UNIT SUBCUT (21:14)
[2024-01-10] MEDS: traZODone HCL 50 MG TABLET PO (23:13)
[2024-01-11] MEDS: traZODone HCL 50 MG TABLET PO ×3 (00:10→23:40)
[2024-01-11 08:13] LABS: Glucose, Whole Blood 124 mg/dL (60-115)
[2024-01-11] MEDS: Sertraline HCL 100 MG TABLET PO (09:09)
[2024-01-11] MEDS: Levothyroxine Sodium 150 MCG TABLET PO (09:09)
[2024-01-11] MEDS: Memantine HCl 5 MG TABLET PO ×2 (09:09→22:06)
--- NOTE | 2024-01-11 11:32 | HO.PSYCHPN ---
Subjective Subjective Date of Service: 01/11/24 Reason For Visit: paranoia cognitive impairment Interim History: Active on unit. social with peers. denies any issues. Patient continues to wait on placement. Review of Systems Review of Systems endorses congestion and runny nose Yes all other systems are reviewed and are negative and unobtainable due to endotracheal tube Constitutional: Reports as per HPI Eyes: Reports as per HPI Reports as per HPI Cardiovascular: Reports as per HPI Respiratory: Reports as per HPI Gastrointestinal: Reports as per HPI Genitourinary: Reports as per HPI Musculoskeletal: Reports as per HPI Skin/Breast: Reports as per HPI Reports as per HPI Psychiatric: Reports as per HPI Endocrine: Reports as per HPI Hematologic/Lymphatic: Reports as per HPI Allergic/Immunologic: Reports as per HPI Mental Status Exam Mental Status Exam Narrative: Ante room. Mask. The patient is blunted with poverty of content. No overt suspiciousness. Denied hallucinations. Denied SI or HI. 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 No demonstrated acute intracranial abnormalities. 2. Chronic mild to moderate nonspecific white matter changes, most notably in the deep white matter of the right frontal lobe. Mild to moderate generalized cerebral volume loss. Medications Medications Current Medications Acetaminophen (Acetaminophen 325 Mg Tablet) 650 mg PO Q6H PRN PRN Reason: Headache/Pain Mild Scale (1-3) Last Admin: 01/01/24 08:45 Dose: 650 mg Al Hydroxide/Mg Hydroxide (Magnesium Hydrox/Alum Hydrox 30 Ml Oral.Susp) 30 ml PO Q6H PRN PRN Reason: Heartburn/Nausea Last Admin: 11/27/23 10:48 Dose: 30 ml Aripiprazole (Aripiprazole Er 300 Mg Suser.Syr) 300 mg IM Q28D@0900 [facility] Last Admin: 01/08/24 09:00 Dose: 300 mg Benzocaine (Throat Lozenge, Medicated Lozenge) 1 lozenge MUCOUS MEM Q2H PRN PRN Reason: Sore Throat Last Admin: 12/30/23 20:59 Dose: 1 lozenge Benztropine Mesylate (Benztropine Mesylate 0.5 Mg Tablet) 0.5 mg PO TID PRN PRN Reason: Extrapyramidal Effects Glucose (Glucose Gel 15 Gm Gel..Gram.) 15 gm PO Q15M PRN; Protocol PRN Reason: per Hypoglycemia Standing Ord. Guaifenesin/Dextromethorphan (Guaifenesin Dm 100/10/5 Ml 5 Ml Syrup) 5 ml PO Q4H PRN PRN Reason: Cough Last Admin: 01/06/24 22:48 Dose: 5 ml Hydroxyzine HCl (Hydroxyzine Hcl 25 Mg Tablet) 25 mg PO Q6H PRN PRN Reason: Anxiety Last Admin: 12/30/23 20:59 Dose: 25 mg Dextrose (D10) 250 mls @ 750 mls/hr IV Q15M PRN; Protocol PRN Reason: per Hypoglycemia Standing Ord. Insulin Glargine (Insulin Glargine,Hum.Rec.Anlog 100 Unit/Ml 10 Ml Vial) 20 unit SUBCUT BEDTIME [facility] Last Admin: 01/10/24 21:14 Dose: 20 unit Insulin Human Lispro (Insulin Lispro 100 Unit/Ml 3 Ml Vial) 0 unit SUBCUT QIDACHS [facility]; Protocol Last Admin: 01/11/24 09:10 Dose: Not Given Lamotrigine (Lamotrigine 100 Mg Tablet) 150 mg PO BEDTIME [facility] Last Admin: 01/10/24 21:12 Dose: 150 mg Levothyroxine Sodium (Levothyroxine Sodium 150 Mcg Tablet) 150 mcg PO DAILY@0800 [facility] Last Admin: 01/11/24 09:09 Dose: 150 mcg Magnesium Hydroxide (Milk Of Magnesia 30 Ml Oral.Susp) 30 ml PO DAILY PRN PRN Reason: Constipation Memantine (Memantine Hcl 5 Mg Tablet) 5 mg PO BID [facility] Last Admin: 01/11/24 09:09 Dose: 5 mg Metformin HCl (Metformin Hcl Er 500 Mg Tab.Er.24h) 1,000 mg PO DAILY@1700 [facility] Last Admin: 01/10/24 16:41 Dose: 1,000 mg Ondansetron HCl (Ondansetron Odt 8 Mg Tab.Rapdis) 8 mg TRANSLINGU Q8H PRN PRN Reason: Nausea and Vomiting Last Admin: 12/31/23 08:39 Dose: 8 mg Sertraline HCl (Sertraline Hcl 100 Mg Tablet) 100 mg PO DAILY [facility] Last Admin: 01/11/24 09:09 Dose: 100 mg Simethicone (Simethicone 80 Mg Tab.Chew) 80 mg PO QIDWMHS PRN PRN Reason: Gas Trazodone HCl (Trazodone Hcl 50 Mg Tablet) 50 mg PO BEDTIME MRX1 PRN PRN Reason: Insomnia Last Admin: 01/11/24 00:10 Dose: 50 mg Allergies Allergies Allergy/AdvReac Type Severity Reaction Status Date / Time amoxicillin [AMOXICILLIN] Allergy Mild VOMITING/ABD Verified 09/10/23 19:44 PAIN Assessment & Plan Assessment & Plan (1) Schizoaffective disorder: Status: Acute Code(s): F25.9 - Schizoaffective disorder, unspecified (2) Hypothyroidism: Status: Acute Code(s): E03.9 - Hypothyroidism, unspecified (3) Type 2 diabetes mellitus: Status: Acute Code(s): E11.9 - Type 2 diabetes mellitus without complications (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 Plan: CV 15 minute safety checks Continue home medications: Haldol 10mg PO daily Synthroid 200mcg PO daily Obtain labs; A1C/POCs Obtain collateral from sister Obtain records from last hospitalization. MOCA Referral for DMH services if patient is agreeable. encourage medication compliance;consider VARGAS discharge planning 09/11: Elevated fasting blood sugar elevated hemoglobin A1c 9.2 med consult placed put in point of care needed will start metformin Would benefit from clarity over recent hospitalization what this were done details regarding treatment continue Haldol unclear if patient has Healthcare proxy his [place] was low slowed cognition with poor details in depth at times during blankly regarding making judgments Unclear if any of this relates to past coma or 2 hypothyroidism. He does seem more impaired than when last seen unclear when last imaging was. Continue Haldol sitter neuro indira involvement regarding diagnostic picture. Patient does remain paranoid blunted suspicious apathetic. He might benefit from longer-term placement if available and appropriate at a later time involved DMH involvement would be quite helpful 09/12: cont haldol get records ? hcp ? start antidep unclear hx 09/13: Keeping to self. More talkative today. Pt concerned he will be transferred to [facility]. Pt stated, The paper I signed yesterday. Are you going to send me back to the last hospital? That place was horrible . Pt was educated he signed a release of information with Dr. Gonzalez to obtain records from [facility]. Pt was given a copy of the release he signed. Despite this, pt continues to be anxious about being transferred. Pt denies SI/HI/VH/AH. 09/14: Keeping to self. active on unit. showered. Pt reports feeling alright today; pt reports he is worried about where I'm going to go . Pt continues concerned he will be transferred to [facility]. Pt denies SI/HI/VH/AH. 09/15:Pt reports feeling alright today; pt continues to report he is worried about where I'm going to go . Responding with brief responses. Guarded. Observed standing in one place for a long period of time. Appears confused. Pt denies SI/HI/VH/AH. T/W spoke to patient's sister, Ros, with patients verbal consent. Ros reports concerns regarding patients ability to make decisions regarding his mental and physical health. She plans on contacting legal advice on obtaining guardianship of patient. 09/16:Patient's presents similar to yesterday's presentation. Responding with brief responses. Guarded. Observed standing in one place for a long period of time, when asked what he is doing, pt stated, I don't know . Pt reports he plans on contacting his sister today and try to convince her for me to stay there . Pt denies SI/HI/VH/AH. Continue current tx plan. 09/17: brief responses. Guarded. 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 Pt denies SI/HI/VH/AH. T/W and Dr. Gonzalez spoke to patient's sister, Ros. Ros stated being [facility] HCP and plans on finding document. She plans on coming to the hospital on Saturday to be present for [facility] intake. 09/21: No changes 09/22:Patient flat apathetic difficult insight and judgment his sister is healthcare proxy if needed patient is accepting medical treatment Referral to [facility] 09/23:Considers starting Haldol Decanoate patient is agreeable superficially difficulty with exec fx was seen [facility] 09/24:Pt seen in f/u mood flat dysphoric difficulty engaging in conversation preoccupied with thought he wont be living with family thing slowed apathetic no clear response with namenda ? some improvement inc lamictal start low dose sertraline inc lamictal ck tsh 09/25:Start Abilify as augmentation with Haldol see if can be more stimulating regarding depressed mood apathetic limited engagement sertraline 50 mg Lamictal 25 b.i.d. referral to [facility] which would have structure unclear if patient can engage with this he remains quite depressed has delusional beliefs regarding housing and that things have been done he has repeatedly tried to reach out to his sister denies active SI needs much help dressing talking with others encouragement to eat severe thought blocking Abilify might be more stimulating than Haldol which can be more dulling 09/26:Abilify started sertraline Lamictal encouraged step-down to [facility] encourage reality orientation denies active SI 09/27: Continue current regimen and plans 09/28: Continue current regimen and plans. 09/29: Referral to [facility] increase Abilify to 5 mg daily eventually try and taper Haldol sertraline 50 mg daily 09/30:Increase Abilify to 10 mg lower Haldol to 7 mg continue sertraline and Lamictal 10/01:Abilify increased to 10 mg continue to taper Haldol sertraline 100 mg Lamictal increased to 75 mg patient apathetic withdrawn difficulty with placement some paranoia continues difficulty with decision making at times. Not physically aggressive internally preoccupied seems somewhat improved with Abilify sertraline Continue discharge planning 10/02:Patient somewhat blunted flat slowed thinking during the day times staring. Change Abilify to 10 mg at bedtime. Scheduled Haldol will lowered to 2.5 mg Continue sertraline 100 mg Namenda 5 b.i.d. 10/03:Haldol discontinued modafinil low-dose monitor for psychosis or agitation continue discharge planning 10/06: May need to firm healthcare proxy calls have been placed to sister to try to help in discharge planning. Referrals made. Patient cooperative with care 10/07:Pharmacy ordering Abilify maintain a increase modafinil 100 mg patient remains flat passive depressed some improvement noted no current paranoia noted continue discharge planning no current safe discharge plan 10/08: Increase Lamictal 100 mg Abilify Maintena 400 mg hold modafinil unclear if was overly stimulating patient continues to present internally preoccupied. 10/09:Healthcare proxy invoked discharge planning continue Lamictal Abilify pending maintain a 10/10:Healthcare proxy invoked new CV signed discharge planning. 10/11 keep same treatment 10/12 keep same treatment 10/13: Continue plan of care Lamictal Abilify discharge planning sertraline 10/14: stable. continue current mgmt. 10/15: stable. continue current mgmt. 10/16: stable presentation. continue current mgmt. 10/17: as for yesterday. 10/18: no changes. 10/19: stabel, safe. no change. 10/20: no change in presentation. calm, cooperative. active on unit, social with select peers, attending groups. Pt reports feeling alright . denies SI/HI/VH/AH. Social work waiting to hear from possible placement location. Continue current tx plan. 10/21: continue current tx plan. awaiting placement. 10/22: calm, cooperative. active on unit, social with select peers, attending groups. Pt reports feeling good ; pt stated, I'm waiting to see where I'm going . denies SI/HI/VH/AH. Showered with encouragement. 10/23: continue current tx plan. 10/24: calm, cooperative. active on unit, social with select peers, attending groups. Pt reports feeling good ; pt stated, I just want a place to live . 10/25- likely at baseline for him- CTP 10/26 CTP likely needs placement 10/27: continue current tx plan. awaiting placement. 10/28: Similar to yesterday. No change in presentation. 10/29: Pt reports feeling good ;pt stated, just waiting for a place to live . denies any issues at this time. 10/30: calm, cooperative. active on unit, social with select peers, attending groups. Pt reports feeling worried about where I am going to live . denies any issues at this time. 10/21: no change in presentation. continue current tx plan. 11/01: continue current management and treatment plan. 11/02: Continue current management and treatment plan. 11/03: Continue current management and treatment plan. 11/04: Active on unit. calm, cooperative. social with select peers, attending groups. denies any issues at this time. He reports sleeping well. Pt reports he would be interested in applying for DMH services; social work aware. 11/05: Active on unit. calm, cooperative. social with select peers, attending groups. denies any issues at this time. Pt reports feeling okay ; he reports anxiety regarding placement. Continue current tx plan. 11/07/23 DMH referral has appropriate concerns re living stuation cont abilify lamictal 11/08/23 Pt cooperative with care d/c planning working with sw cont d/c planning cont lamictal abilify 11/12/23 Patient increasingly despairing aware of no clear discharge plan periods needs cuing for much functioning limited social engaged needs help regarding diabetes and medication compliance reportedly had been rejected by multiple rest homes patient not threatening intermittently hopeless helpless very limited family contact at this time 11/13/23 pt flat depressed hopeless helpless unable to fx without structure 11/15 continue tx. 11/16 continue tx. 11/18/2023 Continue plan of care referral to [facility] TSH low will decrease levothyroxine 11/19/23 Pt flat dysphor ic inc hopeless helpless lamictal 150 hs dec levothyroxine 150 d/c planning cont 11/20/23 lamictal inc d/c planning [facility] referral 12/02/2023 Continue Lamictal Abilify patient cooperative with care gets despairing at times regarding lack of family support problematic discharge planning in relationship to finding suitable structured place to live 12/02: Social with peers. Per nursing, pt did not sleep last night. Pt reports he did not sleeping because he wasn't tired but feel okay ; ordered Ativan 1mg PO bedtime for tonight, pt aware. 12/03: In bed sleeping, pt reports he is catching up on sleep from the night before. Calm, cooperative. T/W and wire web worker, Billie, with pt to discuss possibly going to the [facility]. Pt reports he would like to call his sister and speak to her before deciding. DC Ativan. 12/04: Active on unit, social with peers. attending groups. T/W and wire web workerBillie, met with pt to discuss discharge plan. Pt reports he doesn't know if he would want to go [place]; he states he would rather live on the street because I've done it before . Pt encouraged to consider benefits of going to a [place] with the winter months coming; he agreed to doing phone intake with social services analyst on Saturday with [facility]. 12/05: Pt presents similar to yesterday. Continues to perseverate about [facility] being a [place] and not a program; He continues to agree to do phone intake on Saturday. Discussed VARGAS, pt reports he want time to consider d/t not liking needles . 12/08: Pt had phone interview with [facility], however, after multiple attempts at calling them, no one at [facility] picked up the phone to conduct interview. wire web worker to get into contact with them again. Pt denies any issues at this time. 12/09: Active on unit, social with peers. Pt denies any issues at this time. Patient agreed to receiving Abilify Maintena; risks/benefits reviewed. Waiting on placement. 12/10: Patient received Abilify Maintena yesterday. He denies any side effects. Pleasant. Waiting on placement. 12/11: continue current tx plan. 12/12: similar to days prior. waiting on placement. continue current tx plan. 12/13: appearing more depressed or demoralized. notes lots of people come and go. continue current mgmt. 12/14: same as for yesterday: find me a place to live? continue current mgmt. 12/15: out and about more. otherwise stable. continue current mgmt. 12/16: continue current tx plan. 12/17: continue current tx plan. 12/18: awaiting placement. denies any issues. 12/19: Pt reports feeling alright ; Social work continues to work on placement. Pt denies any issues at this time. Pt reports sleeping well. 12/20: Continue plan of care 12/21: Continue plan of care 12/22: continue current tx plan. 12/23: continue tx plan. 12/24: continue tx plan. 12/25: similar to days prior. waiting on placement. 12/26: Continue current tx plan. 12/27: Continue current management and treatment plan. 12/28: Continue current management and treatment plan. 12/29: In bed, tested positive for Covid. Vomited x1 per nursing. Pt reports feeling okay ; sleeping most of shift. Continue current tx plan. 12/30: Pt reports feeling okay ; continues on isolation d/t being Covid positive. Utilizing IPad. Pt reports sleeping well. denies SI/HI/VH/AH. Has not vomited today. 12/31: Pt reports feeling alright ; pt stated, I still have a stuffy nose, cough and headache but I'm starting to feel better . continues on isolation. denies other issues at this time. Continue current tx plan. 01/01: pt reports covid symptoms are improving. continues waiting on placement. 01/02: Continue tx plan. 01/05/24: no changes. 01/05: Active on unit. Pt reports feeling okay today; denies any issues at this time. pt had meeting with [facility] to be placed on list for temporary placement; pt declined. Dr. Gonzalez to speak to patient regarding this. 01/06: Discussed placement; pt reports he is thinking about saying yes to the motel . pt reports he does not believe his sister or social services analyst that he has money saved in the bank. Pt believes if he left to go to the motel he would be stuck there with no money . Social work to discuss with pt. 01/07: Active on unit. social with peers. denies any issues. Pt reports feeling okay ; reports he is still thinking about where he will go after discharge. 01/08: waiting on placement. continue current tx plan. 01/09: Patient continues to wait on placement. 119: Continue current management and treatment plan. Reason for continued inpatient stay Substantial Risk for: inability to function and rapid decompensation Time Spent With Patient Time: Total time managing care of this patient today ____ minutes.
[2024-01-11 11:49] LABS: Glucose, Whole Blood 115 mg/dL (60-115)
[2024-01-11 16:56] LABS: Glucose, Whole Blood 121 mg/dL (60-115)
[2024-01-11] MEDS: metFORMIN HCl ER 500 MG TAB.ER.24H 1000 MG PO (17:40)
[2024-01-11 19:24] VITALS: BP 145/86; PULSE 86; RESP 16; TEMP 36.7; O2SAT 98
[2024-01-11 21:42] LABS: Glucose, Whole Blood 124 mg/dL (60-115)
[2024-01-11] MEDS: lamoTRIgine 100 MG TABLET 150 MG PO (22:07)
[2024-01-11] MEDS: Insulin Glargine,Hum.rec.anlog 100 UNIT/ML 10 ML VIAL 20 UNIT SUBCUT (22:09)
[2024-01-12 07:38] VITALS: BP 123/66; PULSE 75; RESP 16; TEMP 36.3; O2SAT 98
[2024-01-12 07:58] LABS: Glucose, Whole Blood 126 mg/dL (60-115)
[2024-01-12] MEDS: Memantine HCl 5 MG TABLET PO ×2 (08:34→20:54)
[2024-01-12] MEDS: Sertraline HCL 100 MG TABLET PO (08:34)
[2024-01-12] MEDS: Levothyroxine Sodium 150 MCG TABLET PO (08:34)
--- NOTE | 2024-01-12 11:21 | HO.PSYCHPN ---
Subjective Subjective Date of Service: 01/12/24 Reason For Visit: paranoia cognitive impairment Interim History: Active on unit. social with peers. denies any issues. Patient continues to wait on placement. Review of Systems Review of Systems endorses congestion and runny nose Yes all other systems are reviewed and are negative and unobtainable due to endotracheal tube Constitutional: Reports as per HPI Eyes: Reports as per HPI Reports as per HPI Cardiovascular: Reports as per HPI Respiratory: Reports as per HPI Gastrointestinal: Reports as per HPI Genitourinary: Reports as per HPI Musculoskeletal: Reports as per HPI Skin/Breast: Reports as per HPI Reports as per HPI Psychiatric: Reports as per HPI Endocrine: Reports as per HPI Hematologic/Lymphatic: Reports as per HPI Allergic/Immunologic: Reports as per HPI Mental Status Exam Mental Status Exam Narrative: Ante room. Mask. The patient is blunted with poverty of content. No overt suspiciousness. Denied hallucinations. Denied SI or HI. Difficulty with decision-making impaired insight judgment Patient Appearance: Disheveled Patient Orientation: Person, Place and Situation Level of Consciousness: Awake Patient Behavior: Appropriate and Cooperative Mood Description: Calm and Blunted Affect Description: Blunted Patient Cognition Impaired: Yes Ability to Follow Directions: Fair Speech Pattern: Clear and Soft-Spoken 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: Sign Fabricator Impaired Diagnostics Vital Signs (24Hr): Vital Signs - 24 hr 01/11/24 19:24 01/12/24 07:38 Temperature 98.1 F 97.3 F Pulse Rate 86 75 Respiratory Rate 16 16 Blood Pressure 145/86 H 123/66 Pulse Oximetry 98 98 Oxygen Delivery Method Room Air Room Air BMI result Body Mass Index 32.4 Labs 09/10/23 20:00 01/09/24 09:43 Labs: Laboratory Results - last 48 hr 01/10/24 01/10/24 01/10/24 11:47 16:33 21:01 POC Glucose 107 98 188 H 01/11/24 01/11/24 01/11/24 08:08 11:46 16:53 POC Glucose 124 H 115 121 H 01/11/24 01/12/24 21:38 07:51 POC Glucose 124 H 126 H Imaging Radiology Impressions: ITS Impressions Brain MRI 09/19/23 20:33 IMPRESSION: 1. No demonstrated acute intracranial abnormalities. 2. Chronic mild to moderate nonspecific white matter changes, most notably in the deep white matter of the right frontal lobe. Mild to moderate generalized cerebral volume loss. Medications Medications Current Medications Acetaminophen (Acetaminophen 325 Mg Tablet) 650 mg PO Q6H PRN PRN Reason: Headache/Pain Mild Scale (1-3) Last Admin: 01/01/24 08:45 Dose: 650 mg Al Hydroxide/Mg Hydroxide (Magnesium Hydrox/Alum Hydrox 30 Ml Oral.Susp) 30 ml PO Q6H PRN PRN Reason: Heartburn/Nausea Last Admin: 11/27/23 10:48 Dose: 30 ml Aripiprazole (Aripiprazole Er 300 Mg Suser.Syr) 300 mg IM Q28D@0900 [facility] Last Admin: 01/08/24 09:00 Dose: 300 mg Benzocaine (Throat Lozenge, Medicated Lozenge) 1 lozenge MUCOUS MEM Q2H PRN PRN Reason: Sore Throat Last Admin: 12/30/23 20:59 Dose: 1 lozenge Benztropine Mesylate (Benztropine Mesylate 0.5 Mg Tablet) 0.5 mg PO TID PRN PRN Reason: Extrapyramidal Effects Glucose (Glucose Gel 15 Gm Gel..Gram.) 15 gm PO Q15M PRN; Protocol PRN Reason: per Hypoglycemia Standing Ord. Guaifenesin/Dextromethorphan (Guaifenesin Dm 100/10/5 Ml 5 Ml Syrup) 5 ml PO Q4H PRN PRN Reason: Cough Last Admin: 01/06/24 22:48 Dose: 5 ml Hydroxyzine HCl (Hydroxyzine Hcl 25 Mg Tablet) 25 mg PO Q6H PRN PRN Reason: Anxiety Last Admin: 12/30/23 20:59 Dose: 25 mg Dextrose (D10) 250 mls @ 750 mls/hr IV Q15M PRN; Protocol PRN Reason: per Hypoglycemia Standing Ord. Insulin Glargine (Insulin Glargine,Hum.Rec.Anlog 100 Unit/Ml 10 Ml Vial) 20 unit SUBCUT BEDTIME [facility] Last Admin: 01/11/24 22:09 Dose: 20 unit Insulin Human Lispro (Insulin Lispro 100 Unit/Ml 3 Ml Vial) 0 unit SUBCUT QIDACHS [facility]; Protocol Last Admin: 01/12/24 08:35 Dose: Not Given Lamotrigine (Lamotrigine 100 Mg Tablet) 150 mg PO BEDTIME [facility] Last Admin: 01/11/24 22:07 Dose: 150 mg Levothyroxine Sodium (Levothyroxine Sodium 150 Mcg Tablet) 150 mcg PO DAILY@0800 [facility] Last Admin: 01/12/24 08:34 Dose: 150 mcg Magnesium Hydroxide (Milk Of Magnesia 30 Ml Oral.Susp) 30 ml PO DAILY PRN PRN Reason: Constipation Memantine (Memantine Hcl 5 Mg Tablet) 5 mg PO BID [facility] Last Admin: 01/12/24 08:34 Dose: 5 mg Metformin HCl (Metformin Hcl Er 500 Mg Tab.Er.24h) 1,000 mg PO DAILY@1700 [facility] Last Admin: 01/11/24 17:40 Dose: 1,000 mg Ondansetron HCl (Ondansetron Odt 8 Mg Tab.Rapdis) 8 mg TRANSLINGU Q8H PRN PRN Reason: Nausea and Vomiting Last Admin: 12/31/23 08:39 Dose: 8 mg Sertraline HCl (Sertraline Hcl 100 Mg Tablet) 100 mg PO DAILY [facility] Last Admin: 01/12/24 08:34 Dose: 100 mg Simethicone (Simethicone 80 Mg Tab.Chew) 80 mg PO QIDWMHS PRN PRN Reason: Gas Trazodone HCl (Trazodone Hcl 50 Mg Tablet) 50 mg PO BEDTIME MRX1 PRN PRN Reason: Insomnia Last Admin: 01/11/24 23:40 Dose: 50 mg Allergies Allergies Allergy/AdvReac Type Severity Reaction Status Date / Time amoxicillin [AMOXICILLIN] Allergy Mild VOMITING/ABD Verified 09/10/23 19:44 PAIN Assessment & Plan Assessment & Plan (1) Schizoaffective disorder: Status: Acute Code(s): F25.9 - Schizoaffective disorder, unspecified (2) Hypothyroidism: Status: Acute Code(s): E03.9 - Hypothyroidism, unspecified (3) Type 2 diabetes mellitus: Status: Acute Code(s): E11.9 - Type 2 diabetes mellitus without complications (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 Plan: CV 15 minute safety checks Continue home medications: Haldol 10mg PO daily Synthroid 200mcg PO daily Obtain labs; A1C/POCs Obtain collateral from sister Obtain records from last hospitalization. MOCA Referral for [facility] services if patient is agreeable. encourage medication compliance;consider VARGAS discharge planning 09/11: Elevated fasting blood sugar elevated hemoglobin A1c 9.2 med consult placed put in point of care needed will start metformin Would benefit from clarity over recent hospitalization what this were done details regarding treatment continue Haldol unclear if patient has Healthcare proxy his [place] was low slowed cognition with poor details in depth at times during blankly regarding making judgments Unclear if any of this relates to past coma or 2 hypothyroidism. He does seem more impaired than when last seen unclear when last imaging was. Continue Haldol sitter neuro indira involvement regarding diagnostic picture. Patient does remain paranoid blunted suspicious apathetic. He might benefit from longer-term placement if available and appropriate at a later time involved [facility] involvement would be quite helpful 09/12: cont haldol get records ? hcp ? start antidep unclear hx 09/13: Keeping to self. More talkative today. Pt concerned he will be transferred to [facility]. Pt stated, The paper I signed yesterday. Are you going to send me back to the last hospital? That place was horrible . Pt was educated he signed a release of information with Dr. Gonzalez to obtain records from [facility]. Pt was given a copy of the release he signed. Despite this, pt continues to be anxious about being transferred. Pt denies SI/HI/VH/AH. 09/14: Keeping to self. active on unit. showered. Pt reports feeling alright today; pt reports he is worried about where I'm going to go . Pt continues concerned he will be transferred to [facility]. Pt denies SI/HI/VH/AH. 09/15:Pt reports feeling alright today; pt continues to report he is worried about where I'm going to go . Responding with brief responses. Guarded. Observed standing in one place for a long period of time. Appears confused. Pt denies SI/HI/VH/AH. T/W spoke to patient's sister, Ros, with patients verbal consent. Ros reports concerns regarding patients ability to make decisions regarding his mental and physical health. She plans on contacting legal advice on obtaining guardianship of patient. 09/16:Patient's presents similar to yesterday's presentation. Responding with brief responses. Guarded. Observed standing in one place for a long period of time, when asked what he is doing, pt stated, I don't know . Pt reports he plans on contacting his sister today and try to convince her for me to stay there . Pt denies SI/HI/VH/AH. Continue current tx plan. 09/17: brief responses. Guarded. 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 Pt denies SI/HI/VH/AH. T/W and Dr. Gonzalez spoke to patient's sister, Ros. Ros stated being [place] HCP and plans on finding document. She plans on coming to the hospital on Saturday to be present for [facility] intake. 09/21: No changes 09/22:Patient flat apathetic difficult insight and judgment his sister is healthcare proxy if needed patient is accepting medical treatment Referral to [facility] 09/23:Considers starting Haldol Decanoate patient is agreeable superficially difficulty with exec fx was seen [facility] 09/24:Pt seen in f/u mood flat dysphoric difficulty engaging in conversation preoccupied with thought he wont be living with family thing slowed apathetic no clear response with namenda ? some improvement inc lamictal start low dose sertraline inc lamictal ck tsh 09/25:Start Abilify as augmentation with Haldol see if can be more stimulating regarding depressed mood apathetic limited engagement sertraline 50 mg Lamictal 25 b.i.d. referral to [facility] which would have structure unclear if patient can engage with this he remains quite depressed has delusional beliefs regarding housing and that things have been done he has repeatedly tried to reach out to his sister denies active SI needs much help dressing talking with others encouragement to eat severe thought blocking Abilify might be more stimulating than Haldol which can be more dulling 09/26:Abilify started sertraline Lamictal encouraged step-down to [facility]' encourage reality orientation denies active SI 09/27: Continue current regimen and plans 09/28: Continue current regimen and plans. 09/29: Referral to [facility]' increase Abilify to 5 mg daily eventually try and taper Haldol sertraline 50 mg daily 09/30:Increase Abilify to 10 mg lower Haldol to 7 mg continue sertraline and Lamictal 10/01:Abilify increased to 10 mg continue to taper Haldol sertraline 100 mg Lamictal increased to 75 mg patient apathetic withdrawn difficulty with placement some paranoia continues difficulty with decision making at times. Not physically aggressive internally preoccupied seems somewhat improved with Abilify sertraline Continue discharge planning 10/02:Patient somewhat blunted flat slowed thinking during the day times staring. Change Abilify to 10 mg at bedtime. Scheduled Haldol will lowered to 2.5 mg Continue sertraline 100 mg Namenda 5 b.i.d. 10/03:Haldol discontinued modafinil low-dose monitor for psychosis or agitation continue discharge planning 10/06: May need to firm healthcare proxy calls have been placed to sister to try to help in discharge planning. Referrals made. Patient cooperative with care 10/07:Pharmacy ordering Abilify maintain a increase modafinil 100 mg patient remains flat passive depressed some improvement noted no current paranoia noted continue discharge planning no current safe discharge plan 10/08: Increase Lamictal 100 mg Abilify Maintena 400 mg hold modafinil unclear if was overly stimulating patient continues to present internally preoccupied. 10/09:Healthcare proxy invoked discharge planning continue Lamictal Abilify pending maintain a 10/10:Healthcare proxy invoked new CV signed discharge planning. 10/11 keep same treatment 10/12 keep same treatment 10/13: Continue plan of care Lamictal Abilify discharge planning sertraline 10/14: stable. continue current mgmt. 10/15: stable. continue current mgmt. 15: stable presentation. continue current mgmt. 16: as for yesterday. 10/18: no changes. 10/19: stabel, safe. no change. 10/20: no change in presentation. calm, cooperative. active on unit, social with select peers, attending groups. Pt reports feeling alright . denies SI/HI/VH/AH. Social work waiting to hear from possible placement location. Continue current tx plan. 10/21: continue current tx plan. awaiting placement. 10/22: calm, cooperative. active on unit, social with select peers, attending groups. Pt reports feeling good ; pt stated, I'm waiting to see where I'm going . denies SI/HI/VH/AH. Showered with encouragement. 10/23: continue current tx plan. 10/24: calm, cooperative. active on unit, social with select peers, attending groups. Pt reports feeling good ; pt stated, I just want a place to live . 10/25- likely at baseline for him- CTP 10/26 CTP likely needs placement 10/27: continue current tx plan. awaiting placement. 10/28: Similar to yesterday. No change in presentation. 10/29: Pt reports feeling good ;pt stated, just waiting for a place to live . denies any issues at this time. 10/30: calm, cooperative. active on unit, social with select peers, attending groups. Pt reports feeling worried about where I am going to live . denies any issues at this time. 10/21: no change in presentation. continue current tx plan. 11/01: continue current management and treatment plan. 11/02: Continue current management and treatment plan. 11/03: Continue current management and treatment plan. 11/04: Active on unit. calm, cooperative. social with select peers, attending groups. denies any issues at this time. He reports sleeping well. Pt reports he would be interested in applying for [facility] services; social work aware. 11/05: Active on unit. calm, cooperative. social with select peers, attending groups. denies any issues at this time. Pt reports feeling okay ; he reports anxiety regarding placement. Continue current tx plan. 11/07/23 [facility] referral has appropriate concerns re living stuation cont abilify lamictal 11/08/23 Pt cooperative with care d/c planning working with sw cont d/c planning cont lamictal abilify 11/12/23 Patient increasingly despairing aware of no clear discharge plan periods needs cuing for much functioning limited social engaged needs help regarding diabetes and medication compliance reportedly had been rejected by multiple rest homes patient not threatening intermittently hopeless helpless very limited family contact at this time 11/13/23 pt flat depressed hopeless helpless unable to fx without structure 11/15 continue tx. 11/16 continue tx. 11/18/2023 Continue plan of care referral to [facility] TSH low will decrease levothyroxine 11/19/23 Pt flat dysphor ic inc hopeless helpless lamictal 150 hs dec levothyroxine 150 d/c planning cont 11/20/23 lamictal inc d/c planning [facility] 12/02/2023 Continue Lamictal Abilify patient cooperative with care gets despairing at times regarding lack of family support problematic discharge planning in relationship to finding suitable structured place to live 12/02: Social with peers. Per nursing, pt did not sleep last night. Pt reports he did not sleeping because he wasn't tired but feel okay ; ordered Ativan 1mg PO bedtime for tonight, pt aware. 12/03: In bed sleeping, pt reports he is catching up on sleep from the night before. Calm, cooperative. T/W and sheet metal duct worker supervisor, Billie, with pt to discuss possibly going to the [facility]. Pt reports he would like to call his sister and speak to her before deciding. DC Ativan. 12/04: Active on unit, social with peers. attending groups. T/W and sheet metal duct worker supervisorBillie, met with pt to discuss discharge plan. Pt reports he doesn't know if he would want to go to a homeless chcf; he states he would rather live on the street because I've done it before . Pt encouraged to consider benefits of going to a chcf with the winter months coming; he agreed to doing phone intake with clinical social work aide on Saturday with [facility]. 12/05: Pt presents similar to yesterday. Continues to perseverate about [facility] being a chcf and not a program; He continues to agree to do phone intake on Saturday. Discussed VARGAS, pt reports he want time to consider d/t not liking needles . 12/08: Pt had phone interview with [facility], however, after multiple attempts at calling them, no one at [facility] picked up the phone to conduct interview. sheet metal duct worker supervisor to get into contact with them again. Pt denies any issues at this time. 12/09: Active on unit, social with peers. Pt denies any issues at this time. Patient agreed to receiving Abilify Maintena; risks/benefits reviewed. Waiting on placement. 12/10: Patient received Abilify Maintena yesterday. He denies any side effects. Pleasant. Waiting on placement. 12/11: continue current tx plan. 12/12: similar to days prior. waiting on placement. continue current tx plan. 12/13: appearing more depressed or demoralized. notes lots of people come and go. continue current mgmt. 12/14: same as for yesterday: find me a place to live? continue current mgmt. 12/15: out and about more. otherwise stable. continue current mgmt. 12/16: continue current tx plan. 12/17: continue current tx plan. 12/18: awaiting placement. denies any issues. 12/19: Pt reports feeling alright ; Social work continues to work on placement. Pt denies any issues at this time. Pt reports sleeping well. 12/20: Continue plan of care 12/21: Continue plan of care 12/22: continue current tx plan. 12/23: continue tx plan. 12/24: continue tx plan. 12/25: similar to days prior. waiting on placement. 12/26: Continue current tx plan. 12/27: Continue current management and treatment plan. 12/28: Continue current management and treatment plan. 12/29: In bed, tested positive for Covid. Vomited x1 per nursing. Pt reports feeling okay ; sleeping most of shift. Continue current tx plan. 12/30: Pt reports feeling okay ; continues on isolation d/t being Covid positive. Utilizing IPad. Pt reports sleeping well. denies SI/HI/VH/AH. Has not vomited today. 12/31: Pt reports feeling alright ; pt stated, I still have a stuffy nose, cough and headache but I'm starting to feel better . continues on isolation. denies other issues at this time. Continue current tx plan. 01/01: pt reports covid symptoms are improving. continues waiting on placement. 01/02: Continue tx plan. 01/05/24: no changes. 01/05: Active on unit. Pt reports feeling okay today; denies any issues at this time. pt had meeting with [facility] to be placed on list for temporary placement; pt declined. Dr. Gonzalez to speak to patient regarding this. 01/06: Discussed placement; pt reports he is thinking about saying yes to the motel . pt reports he does not believe his sister or clinical social work aide that he has money saved in the bank. Pt believes if he left to go to the motel he would be stuck there with no money . Social work to discuss with pt. 01/07: Active on unit. social with peers. denies any issues. Pt reports feeling okay ; reports he is still thinking about where he will go after discharge. 01/08: waiting on placement. continue current tx plan. 01/09: Patient continues to wait on placement. 119: Continue current management and treatment plan. 03/13: Continue current management and treatment plan. Reason for continued inpatient stay Substantial Risk for: inability to function, rapid decompensation and med/psych decompensation Time Spent With Patient Time: Total time managing care of this patient today ____ minutes.
[2024-01-12 11:41] LABS: Glucose, Whole Blood 209 mg/dL (60-115)
[2024-01-12] MEDS: Insulin Lispro 100 UNIT/ML 3 ML VIAL SUBCUT (12:03)
[2024-01-12 16:42] LABS: Glucose, Whole Blood 133 mg/dL (60-115)
[2024-01-12] MEDS: metFORMIN HCl ER 500 MG TAB.ER.24H 1000 MG PO (17:09)
[2024-01-12 20:00] VITALS: BP 150/74; PULSE 91; RESP 16; TEMP 36.8; O2SAT 99
[2024-01-12 20:46] LABS: Glucose, Whole Blood 141 mg/dL (60-115)
[2024-01-12] MEDS: Insulin Glargine,Hum.rec.anlog 100 UNIT/ML 10 ML VIAL 20 UNIT SUBCUT (20:52)
[2024-01-12] MEDS: traZODone HCL 50 MG TABLET PO ×2 (20:54→23:19)
[2024-01-12] MEDS: lamoTRIgine 100 MG TABLET 150 MG PO (20:55)
[2024-01-13 08:00] VITALS: BP 119/58; PULSE 84; RESP 16; TEMP 37; O2SAT 96
[2024-01-13 08:06] LABS: Glucose, Whole Blood 119 mg/dL (60-115)
[2024-01-13] MEDS: Memantine HCl 5 MG TABLET PO ×2 (09:08→20:58)
[2024-01-13] MEDS: Sertraline HCL 100 MG TABLET PO (09:08)
[2024-01-13] MEDS: Levothyroxine Sodium 150 MCG TABLET PO (09:08)
--- NOTE | 2024-01-13 10:14 | P.PNPSI_ITS ---
Subjective Subjective Date of Service: 01/13/24 Reason For Visit: paranoia cognitive impairment Subjective Notes: Conditional Voluntary Interim History: Active on unit. social with peers. denies any issues. He reports his called him over the weekend to tell him his dog . Patient continues to wait on placement. Medication Compliance: Yes Side effects from medications: No Attending Groups: Yes Review of Systems Constitutional: Reports as per HPI Eyes: Reports as per HPI Reports as per HPI Cardiovascular: Reports as per HPI Respiratory: Reports as per HPI Gastrointestinal: Reports as per HPI Genitourinary: Reports as per HPI Musculoskeletal: Reports as per HPI Skin/Breast: Reports as per HPI Reports as per HPI Psychiatric: Reports as per HPI Endocrine: Reports as per HPI Hematologic/Lymphatic: Reports as per HPI Allergic/Immunologic: Reports as per HPI 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: Assisted Impaired Diagnostics Vital Signs (24Hr): Vital Signs - 24 hr 01/12/24 20:00 01/13/24 08:00 Temperature 98.3 F 98.6 F Pulse Rate 91 84 Respiratory Rate 16 16 Blood Pressure 150/74 H 119/58 L Pulse Oximetry 99 96 Oxygen Delivery Method Room Air Room Air BMI result Body Mass Index 32.4 Labs 09/10/23 20:00 01/09/24 09:43 Labs: Laboratory Results - last 48 hr 01/11/24 01/11/24 01/11/24 11:46 16:53 21:38 POC Glucose 115 121 H 124 H 01/12/24 01/12/24 01/12/24 07:51 11:37 16:39 POC Glucose 126 H 209 H 133 H 01/12/24 01/13/24 20:41 08:01 POC Glucose 141 H 119 H Imaging Radiology Impressions: ITS Impressions Brain MRI 09/19/23 20:33 IMPRESSION: 1. No demonstrated acute intracranial abnormalities. 2. Chronic mild to moderate nonspecific white matter changes, most notably in the deep white matter of the right frontal lobe. Mild to moderate generalized cerebral volume loss. Medications Medications Current Medications Acetaminophen (Acetaminophen 325 Mg Tablet) 650 mg PO Q6H PRN PRN Reason: Headache/Pain Mild Scale (1-3) Last Admin: 01/01/24 08:45 Dose: 650 mg Al Hydroxide/Mg Hydroxide (Magnesium Hydrox/Alum Hydrox 30 Ml Oral.Susp) 30 ml PO Q6H PRN PRN Reason: Heartburn/Nausea Last Admin: 11/27/23 10:48 Dose: 30 ml Aripiprazole (Aripiprazole Er 300 Mg Suser.Syr) 300 mg IM Q28D@0900 [facility] Last Admin: 01/08/24 09:00 Dose: 300 mg Benzocaine (Throat Lozenge, Medicated Lozenge) 1 lozenge MUCOUS MEM Q2H PRN PRN Reason: Sore Throat Last Admin: 12/30/23 20:59 Dose: 1 lozenge Benztropine Mesylate (Benztropine Mesylate 0.5 Mg Tablet) 0.5 mg PO TID PRN PRN Reason: Extrapyramidal Effects Glucose (Glucose Gel 15 Gm Gel..Gram.) 15 gm PO Q15M PRN; Protocol PRN Reason: per Hypoglycemia Standing Ord. Guaifenesin/Dextromethorphan (Guaifenesin Dm 100/10/5 Ml 5 Ml Syrup) 5 ml PO Q4H PRN PRN Reason: Cough Last Admin: 01/06/24 22:48 Dose: 5 ml Hydroxyzine HCl (Hydroxyzine Hcl 25 Mg Tablet) 25 mg PO Q6H PRN PRN Reason: Anxiety Last Admin: 12/30/23 20:59 Dose: 25 mg Dextrose (D10) 250 mls @ 750 mls/hr IV Q15M PRN; Protocol PRN Reason: per Hypoglycemia Standing Ord. Insulin Glargine (Insulin Glargine,Hum.Rec.Anlog 100 Unit/Ml 10 Ml Vial) 20 unit SUBCUT BEDTIME [facility] Last Admin: 01/12/24 20:52 Dose: 20 unit Insulin Human Lispro (Insulin Lispro 100 Unit/Ml 3 Ml Vial) 0 unit SUBCUT QIDACHS [facility]; Protocol Last Admin: 01/13/24 09:02 Dose: Not Given Lamotrigine (Lamotrigine 100 Mg Tablet) 150 mg PO BEDTIME [facility] Last Admin: 01/12/24 20:55 Dose: 150 mg Levothyroxine Sodium (Levothyroxine Sodium 150 Mcg Tablet) 150 mcg PO DAILY@0800 [facility] Last Admin: 01/13/24 09:08 Dose: 150 mcg Magnesium Hydroxide (Milk Of Magnesia 30 Ml Oral.Susp) 30 ml PO DAILY PRN PRN Reason: Constipation Memantine (Memantine Hcl 5 Mg Tablet) 5 mg PO BID [facility] Last Admin: 01/13/24 09:08 Dose: 5 mg Metformin HCl (Metformin Hcl Er 500 Mg Tab.Er.24h) 1,000 mg PO DAILY@1700 [facility] Last Admin: 01/12/24 17:09 Dose: 1,000 mg Ondansetron HCl (Ondansetron Odt 8 Mg Tab.Rapdis) 8 mg TRANSLINGU Q8H PRN PRN Reason: Nausea and Vomiting Last Admin: 12/31/23 08:39 Dose: 8 mg Sertraline HCl (Sertraline Hcl 100 Mg Tablet) 100 mg PO DAILY [facility] Last Admin: 01/13/24 09:08 Dose: 100 mg Simethicone (Simethicone 80 Mg Tab.Chew) 80 mg PO QIDWMHS PRN PRN Reason: Gas Trazodone HCl (Trazodone Hcl 50 Mg Tablet) 50 mg PO BEDTIME MRX1 PRN PRN Reason: Insomnia Last Admin: 01/12/24 23:19 Dose: 50 mg Allergies Allergies Allergy/AdvReac Type Severity Reaction Status Date / Time amoxicillin [AMOXICILLIN] Allergy Mild VOMITING/ABD Verified 09/10/23 19:44 PAIN Assessment & Plan Assessment & Plan (1) Schizoaffective disorder: Status: Acute Code(s): F25.9 - Schizoaffective disorder, unspecified (2) Hypothyroidism: Status: Acute Code(s): E03.9 - Hypothyroidism, unspecified (3) Type 2 diabetes mellitus: Status: Acute Code(s): E11.9 - Type 2 diabetes mellitus without complications (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 Plan: CV 15 minute safety checks Continue home medications: Haldol 10mg PO daily Synthroid 200mcg PO daily Obtain labs; A1C/POCs Obtain collateral from sister Obtain records from last hospitalization. MOCA Referral for DMH services if patient is agreeable. encourage medication compliance;consider VARGAS discharge planning 09/11: Elevated fasting blood sugar elevated hemoglobin A1c 9.2 med consult placed put in point of care needed will start metformin Would benefit from clarity over recent hospitalization what this were done details regarding treatment continue Haldol unclear if patient has Healthcare proxy his Coal was low slowed cognition with poor details in depth at times during blankly regarding making judgments Unclear if any of this relates to past coma or 2 hypothyroidism. He does seem more impaired than when last seen unclear when last imaging was. Continue Haldol sitter neuro indira involvement regarding diagnostic picture. Patient does remain paranoid blunted suspicious apathetic. He might benefit from longer- term placement if available and appropriate at a later time involved DMH involvement would be quite helpful 09/12: cont haldol get records ? hcp ? start antidep unclear hx 09/13: Keeping to self. More talkative today. Pt concerned he will be transferred to [facility]. Pt stated, The paper I signed yesterday. Are you going to send me back to the last hospital? That place was horrible . Pt was educated he signed a release of information with Dr. Gonzalez to obtain records from [facility]. Pt was given a copy of the release he signed. Despite this, pt continues to be anxious about being transferred. Pt denies SI/HI/VH/AH. 09/14: Keeping to self. active on unit. showered. Pt reports feeling alright today; pt reports he is worried about where I'm going to go . Pt continues concerned he will be transferred to [facility]. Pt denies SI/HI/VH/AH. 09/15:Pt reports feeling alright today; pt continues to report he is worried about where I'm going to go . Responding with brief responses. Guarded. Observed standing in one place for a long period of time. Appears confused. Pt denies SI/HI/VH/AH. T/W spoke to patient's sister, Ros, with patients verbal consent. Ros reports concerns regarding patients ability to make decisions regarding his mental and physical health. She plans on contacting legal advice on obtaining guardianship of patient. 09/16:Patient's presents similar to yesterday's presentation. Responding with brief responses. Guarded. Observed standing in one place for a long period of time, when asked what he is doing, pt stated, I don't know . Pt reports he plans on contacting his sister today and try to convince her for me to stay there . Pt denies SI/HI/VH/AH. Continue current tx plan. 09/17: brief responses. Guarded. 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 Pt denies SI/HI/VH/AH. T/W and Dr. Gonzalez spoke to patient's sister, Ros. Ros stated being [facility] HCP and plans on finding document. She plans on coming to the hospital on Saturday to be present for [facility] intake. 09/21: No changes 09/22:Patient flat apathetic difficult insight and judgment his sister is healthcare proxy if needed patient is accepting medical treatment Referral to [facility] 09/23:Considers starting Haldol Decanoate patient is agreeable superficially difficulty with exec fx was seen [facility] 09/24:Pt seen in f/u mood flat dysphoric difficulty engaging in conversation preoccupied with thought he wont be living with family thing slowed apathetic no clear response with namenda ? some improvement inc lamictal start low dose sertraline inc lamictal ck tsh 09/25:Start Abilify as augmentation with Haldol see if can be more stimulating regarding depressed mood apathetic limited engagement sertraline 50 mg Lamictal 25 b.i.d. referral to [facility] which would have structure unclear if patient can engage with this he remains quite depressed has delusional beliefs regarding housing and that things have been done he has repeatedly tried to reach out to his sister denies active SI needs much help dressing talking with others encouragement to eat severe thought blocking Abilify might be more stimulating than Haldol which can be more dulling 09/26:Abilify started sertraline Lamictal encouraged step-down to [facility] encourage reality orientation denies active SI 09/27: Continue current regimen and plans 09/28: Continue current regimen and plans. 09/29: Referral to [facility] increase Abilify to 5 mg daily eventually try and taper Haldol sertraline 50 mg daily 09/30:Increase Abilify to 10 mg lower Haldol to 7 mg continue sertraline and Lamictal 10/01:Abilify increased to 10 mg continue to taper Haldol sertraline 100 mg Lamictal increased to 75 mg patient apathetic withdrawn difficulty with placement some paranoia continues difficulty with decision making at times. Not physically aggressive internally preoccupied seems somewhat improved with Abilify sertraline Continue discharge planning 10/02:Patient somewhat blunted flat slowed thinking during the day times staring. Change Abilify to 10 mg at bedtime. Scheduled Haldol will lowered to 2.5 mg Continue sertraline 100 mg Namenda 5 b.i.d. 10/03:Haldol discontinued modafinil low-dose monitor for psychosis or agitation continue discharge planning 10/06: May need to firm healthcare proxy calls have been placed to sister to try to help in discharge planning. Referrals made. Patient cooperative with care 10/07:Pharmacy ordering Abilify maintain a increase modafinil 100 mg patient remains flat passive depressed some improvement noted no current paranoia noted continue discharge planning no current safe discharge plan 10/08: Increase Lamictal 100 mg Abilify Maintena 400 mg hold modafinil unclear if was overly stimulating patient continues to present internally preoccupied. 10/09:Healthcare proxy invoked discharge planning continue Lamictal Abilify pending maintain a 10/10:Healthcare proxy invoked new CV signed discharge planning. 10/11 keep same treatment 10/12 keep same treatment 10/13: Continue plan of care Lamictal Abilify discharge planning sertraline 10/14: stable. continue current mgmt. 10/15: stable. continue current mgmt. 10/16: stable presentation. continue current mgmt. 10/17: as for yesterday. 10/18: no changes. 10/19: stabel, safe. no change. 10/20: no change in presentation. calm, cooperative. active on unit, social with select peers, attending groups. Pt reports feeling alright . denies SI/HI/VH/AH. Social work waiting to hear from possible placement location. Continue current tx plan. 10/21: continue current tx plan. awaiting placement. 10/22: calm, cooperative. active on unit, social with select peers, attending groups. Pt reports feeling good ; pt stated, I'm waiting to see where I'm going . denies SI/HI/VH/AH. Showered with encouragement. 10/23: continue current tx plan. 10/24: calm, cooperative. active on unit, social with select peers, attending groups. Pt reports feeling good ; pt stated, I just want a place to live . 10/25- likely at baseline for him- CTP 10/26 CTP likely needs placement 10/27: continue current tx plan. awaiting placement. 10/28: Similar to yesterday. No change in presentation. 10/29: Pt reports feeling good ;pt stated, just waiting for a place to live . denies any issues at this time. 10/30: calm, cooperative. active on unit, social with select peers, attending groups. Pt reports feeling worried about where I am going to live . denies any issues at this time. 10/21: no change in presentation. continue current tx plan. 11/01: continue current management and treatment plan. 11/02: Continue current management and treatment plan. 11/03: Continue current management and treatment plan. 11/04: Active on unit. calm, cooperative. social with select peers, attending groups. denies any issues at this time. He reports sleeping well. Pt reports he would be interested in applying for DMH services; social work aware. 11/05: Active on unit. calm, cooperative. social with select peers, attending groups. denies any issues at this time. Pt reports feeling okay ; he reports anxiety regarding placement. Continue current tx plan. 11/07/23 DMH referral has appropriate concerns re living stuation cont abilify lamictal 11/08/23 Pt cooperative with care d/c planning working with sw cont d/c planning cont lamictal abilify 11/12/23 Patient increasingly despairing aware of no clear discharge plan periods needs cuing for much functioning limited social engaged needs help regarding diabetes and medication compliance reportedly had been rejected by multiple rest homes patient not threatening intermittently hopeless helpless very limited family contact at this time 11/13/23 pt flat depressed hopeless helpless unable to fx without structure 11/15 continue tx. 11/16 continue tx. 11/18/2023 Continue plan of care referral to [facility] TSH low will decrease levothyroxine 11/19/23 Pt flat dysphor ic inc hopeless helpless lamictal 150 hs dec levothyroxine 150 d/c planning cont 11/20/23 lamictal inc d/c planning [facility] referral 12/02/2023 Continue Lamictal Abilify patient cooperative with care gets despairing at times regarding lack of family support problematic discharge planning in relationship to finding suitable structured place to live 12/02: Social with peers. Per nursing, pt did not sleep last night. Pt reports he did not sleeping because he wasn't tired but feel okay ; ordered Ativan 1mg PO bedtime for tonight, pt aware. 12/03: In bed sleeping, pt reports he is catching up on sleep from the night before. Calm, cooperative. T/W and boning room worker, Billie, with pt to discuss possibly going to the [facility]. Pt reports he would like to call his sister and speak to her before deciding. DC Ativan. 12/04: Active on unit, social with peers. attending groups. T/W and boning room workerBillie, met with pt to discuss discharge plan. Pt reports he doesn't know if he would want to go to a homeless correction; he states he would rather live on the street because I've done it before . Pt encouraged to consider benefits of going to a correction with the winter months coming; he agreed to doing phone intake with social problems specialist on Saturday with [facility]. 12/05: Pt presents similar to yesterday. Continues to perseverate about [facility] being a correction and not a program; He continues to agree to do phone intake on Saturday. Discussed VARGAS, pt reports he want time to consider d/t not liking needles . 12/08: Pt had phone interview with [facility], however, after multiple attempts at calling them, no one at [facility] picked up the phone to conduct interview. boning room worker to get into contact with them again. Pt denies any issues at this time. 12/09: Active on unit, social with peers. Pt denies any issues at this time. Patient agreed to receiving Abilify Maintena; risks/benefits reviewed. Waiting on placement. 12/10: Patient received Abilify Maintena yesterday. He denies any side effects. Pleasant. Waiting on placement. 12/11: continue current tx plan. 12/12: similar to days prior. waiting on placement. continue current tx plan. 12/13: appearing more depressed or demoralized. notes lots of people come and go. continue current mgmt. 12/14: same as for yesterday: find me a place to live? continue current mgmt. 12/15: out and about more. otherwise stable. continue current mgmt. 12/16: continue current tx plan. 12/17: continue current tx plan. 12/18: awaiting placement. denies any issues. 12/19: Pt reports feeling alright ; Social work continues to work on placement. Pt denies any issues at this time. Pt reports sleeping well. 12/20: Continue plan of care 12/21: Continue plan of care 12/22: continue current tx plan. 12/23: continue tx plan. 12/24: continue tx plan. 12/25: similar to days prior. waiting on placement. 12/26: Continue current tx plan. 12/27: Continue current management and treatment plan. 12/28: Continue current management and treatment plan. 12/29: In bed, tested positive for Covid. Vomited x1 per nursing. Pt reports feeling okay ; sleeping most of shift. Continue current tx plan. 12/30: Pt reports feeling okay ; continues on isolation d/t being Covid positive. Utilizing IPad. Pt reports sleeping well. denies SI/HI/VH/AH. Has not vomited today. 12/31: Pt reports feeling alright ; pt stated, I still have a stuffy nose, cough and headache but I'm starting to feel better . continues on isolation. denies other issues at this time. Continue current tx plan. 01/01: pt reports covid symptoms are improving. continues waiting on placement. 01/02: Continue tx plan. 01/05/24: no changes. 01/05: Active on unit. Pt reports feeling okay today; denies any issues at this time. pt had meeting with [facility] to be placed on list for temporary placement; pt declined. Dr. Gonzalez to speak to patient regarding this. 01/06: Discussed placement; pt reports he is thinking about saying yes to the motel . pt reports he does not believe his sister or social problems specialist that he has money saved in the bank. Pt believes if he left to go to the motel he would be stuck there with no money . Social work to discuss with pt. 01/07: Active on unit. social with peers. denies any issues. Pt reports feeling okay ; reports he is still thinking about where he will go after discharge. 01/08: waiting on placement. continue current tx plan. 01/09: Patient continues to wait on placement. 119: Continue current management and treatment plan. 03/13: Continue current management and treatment plan. 01/12: waiting on placement. Reason for continued inpatient stay Substantial Risk for: other Time Spent With Patient Time: Total time managing care of this patient today _20___ minutes.
[2024-01-13 11:44] LABS: Glucose, Whole Blood 115 mg/dL (60-115)
[2024-01-13 16:37] LABS: Glucose, Whole Blood 101 mg/dL (60-115)
[2024-01-13] MEDS: metFORMIN HCl ER 500 MG TAB.ER.24H 1000 MG PO (17:26)
[2024-01-13 20:00] VITALS: BP 140/66; PULSE 88; RESP 16; TEMP 36.9; O2SAT 96
[2024-01-13 20:13] LABS: Glucose, Whole Blood 156 mg/dL (60-115)
[2024-01-13] MEDS: Insulin Glargine,Hum.rec.anlog 100 UNIT/ML 10 ML VIAL 20 UNIT SUBCUT (20:55)
[2024-01-13] MEDS: Insulin Lispro 100 UNIT/ML 3 ML VIAL SUBCUT (20:56)
[2024-01-13] MEDS: lamoTRIgine 100 MG TABLET 150 MG PO (20:58)
[2024-01-13] MEDS: traZODone HCL 50 MG TABLET PO ×2 (20:59→23:24)
[2024-01-14 07:40] VITALS: BP 113/72; PULSE 72; RESP 16; TEMP 36.4; O2SAT 96
[2024-01-14 07:57] LABS: Glucose, Whole Blood 114 mg/dL (60-115)
[2024-01-14] MEDS: Levothyroxine Sodium 150 MCG TABLET PO (08:13)
[2024-01-14] MEDS: Sertraline HCL 100 MG TABLET PO (08:13)
[2024-01-14] MEDS: Memantine HCl 5 MG TABLET PO ×2 (08:13→21:39)
--- NOTE | 2024-01-14 09:39 | HO.PSYCHPN ---
Subjective Subjective Date of Service: 01/14/24 Reason For Visit: paranoia cognitive impairment Subjective Notes: Conditional Voluntary Interim History: Active on unit. social with peers. denies any issues. Patient continues to wait on placement. Medication Compliance: Yes Side effects from medications: No Attending Groups: Yes Review of Systems Constitutional: Reports as per HPI Eyes: Reports as per HPI Reports as per HPI Cardiovascular: Reports as per HPI Respiratory: Reports as per HPI Gastrointestinal: Reports as per HPI Genitourinary: Reports as per HPI Musculoskeletal: Reports as per HPI Skin/Breast: Reports as per HPI Reports as per HPI Psychiatric: Reports as per HPI Endocrine: Reports as per HPI Hematologic/Lymphatic: Reports as per HPI Allergic/Immunologic: Reports as per HPI 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: Deli Department Manager Impaired Diagnostics Vital Signs (24Hr): Vital Signs - 24 hr 01/13/24 20:00 01/14/24 07:40 Temperature 98.5 F 97.6 F Pulse Rate 88 72 Respiratory Rate 16 16 Blood Pressure 140/66 H 113/72 Pulse Oximetry 96 96 Oxygen Delivery Method Room Air Room Air BMI result Body Mass Index 32.4 Labs 09/10/23 20:00 01/09/24 09:43 Labs: Laboratory Results - last 48 hr 01/12/24 01/12/24 01/12/24 11:37 16:39 20:41 POC Glucose 209 H 133 H 141 H 01/13/24 01/13/24 01/13/24 08:01 11:40 16:31 POC Glucose 119 H 115 101 01/13/24 01/14/24 20:09 07:37 POC Glucose 156 H 114 Imaging Radiology Impressions: ITS Impressions Brain MRI 09/19/23 20:33 IMPRESSION: 1. No demonstrated acute intracranial abnormalities. 2. Chronic mild to moderate nonspecific white matter changes, most notably in the deep white matter of the right frontal lobe. Mild to moderate generalized cerebral volume loss. Medications Medications Current Medications Acetaminophen (Acetaminophen 325 Mg Tablet) 650 mg PO Q6H PRN PRN Reason: Headache/Pain Mild Scale (1-3) Last Admin: 01/01/24 08:45 Dose: 650 mg Al Hydroxide/Mg Hydroxide (Magnesium Hydrox/Alum Hydrox 30 Ml Oral.Susp) 30 ml PO Q6H PRN PRN Reason: Heartburn/Nausea Last Admin: 11/27/23 10:48 Dose: 30 ml Aripiprazole (Aripiprazole Er 300 Mg Suser.Syr) 300 mg IM Q28D@0900 [facility] Last Admin: 01/08/24 09:00 Dose: 300 mg Benzocaine (Throat Lozenge, Medicated Lozenge) 1 lozenge MUCOUS MEM Q2H PRN PRN Reason: Sore Throat Last Admin: 12/30/23 20:59 Dose: 1 lozenge Benztropine Mesylate (Benztropine Mesylate 0.5 Mg Tablet) 0.5 mg PO TID PRN PRN Reason: Extrapyramidal Effects Glucose (Glucose Gel 15 Gm Gel..Gram.) 15 gm PO Q15M PRN; Protocol PRN Reason: per Hypoglycemia Standing Ord. Guaifenesin/Dextromethorphan (Guaifenesin Dm 100/10/5 Ml 5 Ml Syrup) 5 ml PO Q4H PRN PRN Reason: Cough Last Admin: 01/06/24 22:48 Dose: 5 ml Hydroxyzine HCl (Hydroxyzine Hcl 25 Mg Tablet) 25 mg PO Q6H PRN PRN Reason: Anxiety Last Admin: 12/30/23 20:59 Dose: 25 mg Dextrose (D10) 250 mls @ 750 mls/hr IV Q15M PRN; Protocol PRN Reason: per Hypoglycemia Standing Ord. Insulin Glargine (Insulin Glargine,Hum.Rec.Anlog 100 Unit/Ml 10 Ml Vial) 20 unit SUBCUT BEDTIME [facility] Last Admin: 01/13/24 20:55 Dose: 20 unit Insulin Human Lispro (Insulin Lispro 100 Unit/Ml 3 Ml Vial) 0 unit SUBCUT QIDACHS [facility]; Protocol Last Admin: 01/14/24 07:44 Dose: Not Given Lamotrigine (Lamotrigine 100 Mg Tablet) 150 mg PO BEDTIME [facility] Last Admin: 01/13/24 20:58 Dose: 150 mg Levothyroxine Sodium (Levothyroxine Sodium 150 Mcg Tablet) 150 mcg PO DAILY@0800 [facility] Last Admin: 01/14/24 08:13 Dose: 150 mcg Magnesium Hydroxide (Milk Of Magnesia 30 Ml Oral.Susp) 30 ml PO DAILY PRN PRN Reason: Constipation Memantine (Memantine Hcl 5 Mg Tablet) 5 mg PO BID [facility] Last Admin: 01/14/24 08:13 Dose: 5 mg Metformin HCl (Metformin Hcl Er 500 Mg Tab.Er.24h) 1,000 mg PO DAILY@1700 [facility] Last Admin: 01/13/24 17:26 Dose: 1,000 mg Ondansetron HCl (Ondansetron Odt 8 Mg Tab.Rapdis) 8 mg TRANSLINGU Q8H PRN PRN Reason: Nausea and Vomiting Last Admin: 12/31/23 08:39 Dose: 8 mg Sertraline HCl (Sertraline Hcl 100 Mg Tablet) 100 mg PO DAILY [facility] Last Admin: 01/14/24 08:13 Dose: 100 mg Simethicone (Simethicone 80 Mg Tab.Chew) 80 mg PO QIDWMHS PRN PRN Reason: Gas Trazodone HCl (Trazodone Hcl 50 Mg Tablet) 50 mg PO BEDTIME MRX1 PRN PRN Reason: Insomnia Last Admin: 01/13/24 23:24 Dose: 50 mg Allergies Allergies Allergy/AdvReac Type Severity Reaction Status Date / Time amoxicillin [AMOXICILLIN] Allergy Mild VOMITING/ABD Verified 09/10/23 19:44 PAIN Assessment & Plan Assessment & Plan (1) Schizoaffective disorder: Status: Acute Code(s): F25.9 - Schizoaffective disorder, unspecified (2) Hypothyroidism: Status: Acute Code(s): E03.9 - Hypothyroidism, unspecified (3) Type 2 diabetes mellitus: Status: Acute Code(s): E11.9 - Type 2 diabetes mellitus without complications (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 Plan: CV 15 minute safety checks Continue home medications: Haldol 10mg PO daily Synthroid 200mcg PO daily Obtain labs; A1C/POCs Obtain collateral from sister Obtain records from last hospitalization. MOCA Referral for DMH services if patient is agreeable. encourage medication compliance;consider VARGAS discharge planning 09/11: Elevated fasting blood sugar elevated hemoglobin A1c 9.2 med consult placed put in point of care needed will start metformin Would benefit from clarity over recent hospitalization what this were done details regarding treatment continue Haldol unclear if patient has Healthcare proxy his [place] was low slowed cognition with poor details in depth at times during blankly regarding making judgments Unclear if any of this relates to past coma or 2 hypothyroidism. He does seem more impaired than when last seen unclear when last imaging was. Continue Haldol sitter neuro indira involvement regarding diagnostic picture. Patient does remain paranoid blunted suspicious apathetic. He might benefit from longer-term placement if available and appropriate at a later time involved DMH involvement would be quite helpful 09/12: cont haldol get records ? hcp ? start antidep unclear hx 09/13: Keeping to self. More talkative today. Pt concerned he will be transferred to [facility]. Pt stated, The paper I signed yesterday. Are you going to send me back to the last hospital? That place was horrible . Pt was educated he signed a release of information with Dr. Gonzalez to obtain records from [facility]. Pt was given a copy of the release he signed. Despite this, pt continues to be anxious about being transferred. Pt denies SI/HI/VH/AH. 09/14: Keeping to self. active on unit. showered. Pt reports feeling alright today; pt reports he is worried about where I'm going to go . Pt continues concerned he will be transferred to [facility]. Pt denies SI/HI/VH/AH. 09/15:Pt reports feeling alright today; pt continues to report he is worried about where I'm going to go . Responding with brief responses. Guarded. Observed standing in one place for a long period of time. Appears confused. Pt denies SI/HI/VH/AH. T/W spoke to patient's sister, Ros, with patients verbal consent. Ros reports concerns regarding patients ability to make decisions regarding his mental and physical health. She plans on contacting legal advice on obtaining guardianship of patient. 09/16:Patient's presents similar to yesterday's presentation. Responding with brief responses. Guarded. Observed standing in one place for a long period of time, when asked what he is doing, pt stated, I don't know . Pt reports he plans on contacting his sister today and try to convince her for me to stay there . Pt denies SI/HI/VH/AH. Continue current tx plan. 09/17: brief responses. Guarded. Continues to ambulatory care coordinator one place for a long period of time, when asked what he is doing, pt stated, I don't know . Pt denies SI/HI/VH/AH. T/W and Dr. Gonzalez spoke to patient's sister, Ros. Ros stated being Hyamn HCP and plans on finding document. She plans on coming to the hospital on Saturday to be present for [facility] intake. 09/21: No changes 09/22:Patient flat apathetic difficult insight and judgment his sister is healthcare proxy if needed patient is accepting medical treatment Referral to [facility] 09/23:Considers starting Haldol Decano[place] patient is agreeable superficially difficulty with exec fx was seen [facility] 09/24:Pt seen in f/u mood flat dysphoric difficulty engaging in conversation preoccupied with thought he wont be living with family thing slowed apathetic no clear response with namenda ? some improvement inc lamictal start low dose sertraline inc lamictal ck tsh 09/25:Start Abilify as augmentation with Haldol see if can be more stimulating regarding depressed mood apathetic limited engagement sertraline 50 mg Lamictal 25 b.i.d. referral to [facility] which would have structure unclear if patient can engage with this he remains quite depressed has delusional beliefs regarding housing and that things have been done he has repeatedly tried to reach out to his sister denies active SI needs much help dressing talking with others encouragement to eat severe thought blocking Abilify might be more stimulating than Haldol which can be more dulling 09/26:Abilify started sertraline Lamictal encouraged step-down to [facility] encourage reality orientation denies active SI 09/27: Continue current regimen and plans 09/28: Continue current regimen and plans. 09/29: Referral to [facility] increase Abilify to 5 mg daily eventually try and taper Haldol sertraline 50 mg daily 09/30:Increase Abilify to 10 mg lower Haldol to 7 mg continue sertraline and Lamictal 10/01:Abilify increased to 10 mg continue to taper Haldol sertraline 100 mg Lamictal increased to 75 mg patient apathetic withdrawn difficulty with placement some paranoia continues difficulty with decision making at times. Not physically aggressive internally preoccupied seems somewhat improved with Abilify sertraline Continue discharge planning 10/02:Patient somewhat blunted flat slowed thinking during the day times staring. Change Abilify to 10 mg at bedtime. Scheduled Haldol will lowered to 2.5 mg Continue sertraline 100 mg Namenda 5 b.i.d. 10/03:Haldol discontinued modafinil low-dose monitor for psychosis or agitation continue discharge planning 10/06: May need to firm healthcare proxy calls have been placed to sister to try to help in discharge planning. Referrals made. Patient cooperative with care 10/07:Pharmacy ordering Abilify maintain a increase modafinil 100 mg patient remains flat passive depressed some improvement noted no current paranoia noted continue discharge planning no current safe discharge plan 10/08: Increase Lamictal 100 mg Abilify Maintena 400 mg hold modafinil unclear if was overly stimulating patient continues to present internally preoccupied. 10/09:Healthcare proxy invoked discharge planning continue Lamictal Abilify pending maintain a 10/10:Healthcare proxy invoked new CV signed discharge planning. 10/11 keep same treatment 10/12 keep same treatment 10/13: Continue plan of care Lamictal Abilify discharge planning sertraline 10/14: stable. continue current mgmt. 10/15: stable. continue current mgmt. 10/16: stable presentation. continue current mgmt. 10/17: as for yesterday. 10/18: no changes. 10/19: stabel, safe. no change. 10/20: no change in presentation. calm, cooperative. active on unit, social with select peers, attending groups. Pt reports feeling alright . denies SI/HI/VH/AH. Social work waiting to hear from possible placement location. Continue current tx plan. 10/21: continue current tx plan. awaiting placement. 10/22: calm, cooperative. active on unit, social with select peers, attending groups. Pt reports feeling good ; pt stated, I'm waiting to see where I'm going . denies SI/HI/VH/AH. Showered with encouragement. 10/23: continue current tx plan. 10/24: calm, cooperative. active on unit, social with select peers, attending groups. Pt reports feeling good ; pt stated, I just want a place to live . 10/25- likely at baseline for him- CTP 10/26 CTP likely needs placement 10/27: continue current tx plan. awaiting placement. 10/28: Similar to yesterday. No change in presentation. 10/29: Pt reports feeling good ;pt stated, just waiting for a place to live . denies any issues at this time. 10/30: calm, cooperative. active on unit, social with select peers, attending groups. Pt reports feeling worried about where I am going to live . denies any issues at this time. 10/21: no change in presentation. continue current tx plan. 11/01: continue current management and treatment plan. 11/02: Continue current management and treatment plan. 11/03: Continue current management and treatment plan. 11/04: Active on unit. calm, cooperative. social with select peers, attending groups. denies any issues at this time. He reports sleeping well. Pt reports he would be interested in applying for DM services; social work aware. 11/05: Active on unit. calm, cooperative. social with select peers, attending groups. denies any issues at this time. Pt reports feeling okay ; he reports anxiety regarding placement. Continue current tx plan. 11/07/23 DMH referral has appropriate concerns re living stuation cont abilify lamictal 11/08/23 Pt cooperative with care d/c planning working with sw cont d/c planning cont lamictal abilify 11/12/23 Patient increasingly despairing aware of no clear discharge plan periods needs cuing for much functioning limited social engaged needs help regarding diabetes and medication compliance reportedly had been rejected by multiple rest homes patient not threatening intermittently hopeless helpless very limited family contact at this time 11/13/23 pt flat depressed hopeless helpless unable to fx without structure 11/15 continue tx. 11/16 continue tx. 11/18/2023 Continue plan of care referral to [facility] TSH low will decrease levothyroxine 11/19/23 Pt flat dysphor ic inc hopeless helpless lamictal 150 hs dec levothyroxine 150 d/c planning cont 11/20/23 lamictal inc d/c planning [facility] referral 12/02/2023 Continue Lamictal Abilify patient cooperative with care gets despairing at times regarding lack of family support problematic discharge planning in relationship to finding suitable structured place to live 12/02: Social with peers. Per nursing, pt did not sleep last night. Pt reports he did not sleeping because he wasn't tired but feel okay ; ordered Ativan 1mg PO bedtime for tonight, pt aware. 12/03: In bed sleeping, pt reports he is catching up on sleep from the night before. Calm, cooperative. T/W and sanitation worker cleaning equipment, Billie, with pt to discuss possibly going to the [facility]. Pt reports he would like to call his sister and speak to her before deciding. DC Ativan. 12/04: Active on unit, social with peers. attending groups. T/W and sanitation worker cleaning equipment, Billie, met with pt to discuss discharge plan. Pt reports he doesn't know if he would want to go to a homeless nursing home; he states he would rather live on the street because I've done it before . Pt encouraged to consider benefits of going to a nursing home with the winter months coming; he agreed to doing phone intake with social work associate on Saturday with [facility]. 12/05: Pt presents similar to yesterday. Continues to perseverate about [facility] being a nursing home and not a program; He continues to agree to do phone intake on Saturday. Discussed VARGAS, pt reports he want time to consider d/t not liking needles . 12/08: Pt had phone interview with [facility], however, after multiple attempts at calling them, no one at [facility] picked up the phone to conduct interview. sanitation worker cleaning equipment to get into contact with them again. Pt denies any issues at this time. 12/09: Active on unit, social with peers. Pt denies any issues at this time. Patient agreed to receiving Abilify Maintena; risks/benefits reviewed. Waiting on placement. 12/10: Patient received Abilify Maintena yesterday. He denies any side effects. Pleasant. Waiting on placement. 12/11: continue current tx plan. 12/12: similar to days prior. waiting on placement. continue current tx plan. 12/13: appearing more depressed or demoralized. notes lots of people come and go. continue current mgmt. 12/14: same as for yesterday: find me a place to live? continue current mgmt. 12/15: out and about more. otherwise stable. continue current mgmt. 12/16: continue current tx plan. 12/17: continue current tx plan. 12/18: awaiting placement. denies any issues. 12/19: Pt reports feeling alright ; Social work continues to work on placement. Pt denies any issues at this time. Pt reports sleeping well. 12/20: Continue plan of care 12/21: Continue plan of care 12/22: continue current tx plan. 12/23: continue tx plan. 12/24: continue tx plan. 12/25: similar to days prior. waiting on placement. 12/26: Continue current tx plan. 12/27: Continue current management and treatment plan. 12/28: Continue current management and treatment plan. 12/29: In bed, tested positive for Covid. Vomited x1 per nursing. Pt reports feeling okay ; sleeping most of shift. Continue current tx plan. 12/30: Pt reports feeling okay ; continues on isolation d/t being Covid positive. Utilizing IPad. Pt reports sleeping well. denies SI/HI/VH/AH. Has not vomited today. 12/31: Pt reports feeling alright ; pt stated, I still have a stuffy nose, cough and headache but I'm starting to feel better . continues on isolation. denies other issues at this time. Continue current tx plan. 01/01: pt reports covid symptoms are improving. continues waiting on placement. 01/02: Continue tx plan. 01/05/24: no changes. 01/05: Active on unit. Pt reports feeling okay today; denies any issues at this time. pt had meeting with [facility] to be placed on list for temporary placement; pt declined. Dr. Gonzalez to speak to patient regarding this. 01/06: Discussed placement; pt reports he is thinking about saying yes to the motel . pt reports he does not believe his sister or social work associate that he has money saved in the bank. Pt believes if he left to go to the motel he would be stuck there with no money . Social work to discuss with pt. 01/07: Active on unit. social with peers. denies any issues. Pt reports feeling okay ; reports he is still thinking about where he will go after discharge. 01/08: waiting on placement. continue current tx plan. 01/09: Patient continues to wait on placement. 119: Continue current management and treatment plan. 03/13: Continue current management and treatment plan. 01/12: waiting on placement. 01/13: continue current tx plan. Reason for continued inpatient stay Substantial Risk for: other (waiting on placement.) Time Spent With Patient Time: Total time managing care of this patient today _20___ minutes.
[2024-01-14 12:03] LABS: Glucose, Whole Blood 125 mg/dL (60-115)
[2024-01-14 16:58] LABS: Glucose, Whole Blood 196 mg/dL (60-115)
[2024-01-14] MEDS: metFORMIN HCl ER 500 MG TAB.ER.24H 1000 MG PO (17:23)
[2024-01-14] MEDS: Insulin Lispro 100 UNIT/ML 3 ML VIAL SUBCUT (17:24)
[2024-01-14 21:08] VITALS: BP 142/75; PULSE 89; RESP 14; TEMP 36.8; O2SAT 98
[2024-01-14 21:24] LABS: Glucose, Whole Blood 134 mg/dL (60-115)
[2024-01-14] MEDS: Insulin Glargine,Hum.rec.anlog 100 UNIT/ML 10 ML VIAL 20 UNIT SUBCUT (21:37)
[2024-01-14] MEDS: lamoTRIgine 100 MG TABLET 150 MG PO (21:38)
[2024-01-14] MEDS: traZODone HCL 50 MG TABLET PO ×2 (21:39→23:43)
[2024-01-15 07:15] VITALS: BP 115/68; PULSE 76; RESP 14; TEMP 36.4; O2SAT 97
[2024-01-15 07:41] LABS: Glucose, Whole Blood 172 mg/dL (60-115)
[2024-01-15] MEDS: Sertraline HCL 100 MG TABLET PO (09:00)
[2024-01-15] MEDS: Memantine HCl 5 MG TABLET PO ×2 (09:00→21:08)
[2024-01-15] MEDS: Insulin Lispro 100 UNIT/ML 3 ML VIAL SUBCUT ×2 (09:00→17:27)
[2024-01-15] MEDS: Levothyroxine Sodium 150 MCG TABLET PO (09:00)
[2024-01-15 11:54] LABS: Glucose, Whole Blood 141 mg/dL (60-115)
--- NOTE | 2024-01-15 13:47 | PC.NURSE ---
Pt was transferred to the S1 unit for bed placement.
[2024-01-15 13:48] VITALS: BMI 33.0
[2024-01-15 13:54] VITALS: BP 138/82; PULSE 97; RESP 18; TEMP 36.7; O2SAT 98
--- NOTE | 2024-01-15 13:56 | PC.ADMIT ---
Joe was transferred from M3 to S1, he is currently on a Conditional Voluntary. He is diagnosed with Schizoaffective Disorder, on initial presentation appeared disorganized. He is currently alert and oriented X4, he is calm and pleasant, when asked how he felt stated I don't know, he reports endorsing anxiety and depression, When asked if he had any thoughts of wanting to hurt self stated No, verbalized to look for staff if thoughts occur. He is currently on 15 minute checks.
[2024-01-15 17:24] LABS: Glucose, Whole Blood 227 mg/dL (60-115)
[2024-01-15] MEDS: metFORMIN HCl ER 500 MG TAB.ER.24H 1000 MG PO (17:26)
[2024-01-15 20:00] VITALS: BP 140/81; PULSE 88; RESP 16; TEMP 36.5; O2SAT 95
[2024-01-15] MEDS: Insulin Glargine,Hum.rec.anlog 100 UNIT/ML 10 ML VIAL 20 UNIT SUBCUT (21:06)
[2024-01-15] MEDS: lamoTRIgine 100 MG TABLET 150 MG PO (21:07)
[2024-01-15] MEDS: hydrOXYzine HCL 25 MG TABLET PO (21:08)
[2024-01-15] MEDS: traZODone HCL 50 MG TABLET PO (21:08)
[2024-01-15 21:26] LABS: Glucose, Whole Blood 140 mg/dL (60-115)
[2024-01-16] MEDS: traZODone HCL 50 MG TABLET PO ×2 (00:44→21:25)
[2024-01-16] MEDS: LORazepam 1 MG TABLET PO (01:31)
[2024-01-16 06:44] LABS: Glucose, Whole Blood 133 mg/dL (60-115)
[2024-01-16 07:00] VITALS: BMI 32.9
[2024-01-16 08:00] VITALS: BP 116/66; PULSE 80; RESP 18; TEMP 36.6; O2SAT 96
[2024-01-16] MEDS: Levothyroxine Sodium 150 MCG TABLET PO (08:48)
[2024-01-16] MEDS: Sertraline HCL 100 MG TABLET PO (08:48)
[2024-01-16] MEDS: Memantine HCl 5 MG TABLET PO ×2 (08:48→21:24)
[2024-01-16 09:34] LABS: Creatinine Clr Calc Pharmacy 95.5; Estimated Glomerular Filt Rate > 60
[2024-01-16 11:32] LABS: Glucose, Whole Blood 166 mg/dL (60-115)
[2024-01-16] MEDS: Insulin Lispro 100 UNIT/ML 3 ML VIAL SUBCUT ×2 (11:39→21:25)
--- NOTE | 2024-01-16 14:29 | HO.PSYCHPN ---
Subjective Subjective Date of Service: 01/16/24 Reason For Visit: paranoia cognitive impairment Subjective Notes: Conditional Voluntary Interim History: The nursing staff reported the patient had been compliant with treatment, he states that he is doing well. On interview the patient denies new symptoms denies side effects with his medications he feels comfortable the unit. Mental Status Exam Mental Status Exam Patient Appearance: Appropriate Patient Orientation: Person and Situation Level of Consciousness: Awake and Appropriate Patient Behavior: Guarded and Passive Mood Description: Calm Affect Description: Constricted Patient Cognition Impaired: Yes Ability to Follow Directions: Good Speech Pattern: Clear 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: None Delusions: Ideas of Reference Thought Process: Distracted and Slowed Thinking Thought Content: positive for [place] and positive for Poverty of Content Judgement: Fair Diagnostics Vital Signs (24Hr): Vital Signs - 24 hr 01/15/24 20:00 01/16/24 08:00 Temperature 97.7 F 97.8 F Pulse Rate 88 80 Respiratory Rate 16 18 Blood Pressure 140/81 H 116/66 Pulse Oximetry 95 96 Oxygen Delivery Method Room Air Room Air BMI result Body Mass Index 33.0 Labs 09/10/23 20:00 01/16/24 08:08 Labs: Laboratory Results - last 48 hr 01/14/24 01/14/24 01/15/24 16:55 21:21 07:35 Creatinine Estim Creat Clear Calc Estimated GFR POC Glucose 196 H 134 H 172 H 01/15/24 01/15/24 01/15/24 11:50 17:20 20:58 Creatinine Estim Creat Clear Calc Estimated GFR POC Glucose 141 H 227 H 140 H 01/16/24 01/16/24 01/16/24 06:39 08:08 11:27 Creatinine 0.97 Estim Creat Clear Calc 95.5 Estimated GFR > 60 POC Glucose 133 H 166 H Imaging Radiology Impressions: ITS Impressions Brain MRI 09/19/23 20:33 IMPRESSION: 1. No demonstrated acute intracranial abnormalities. 2. Chronic mild to moderate nonspecific white matter changes, most notably in the deep white matter of the right frontal lobe. Mild to moderate generalized cerebral volume loss. Medications Medications Current Medications Acetaminophen (Acetaminophen 325 Mg Tablet) 650 mg PO Q6H PRN PRN Reason: Headache/Pain Mild Scale (1-3) Last Admin: 01/01/24 08:45 Dose: 650 mg Al Hydroxide/Mg Hydroxide (Magnesium Hydrox/Alum Hydrox 30 Ml Oral.Susp) 30 ml PO Q6H PRN PRN Reason: Heartburn/Nausea Last Admin: 11/27/23 10:48 Dose: 30 ml Aripiprazole (Aripiprazole Er 300 Mg Suser.Syr) 300 mg IM Q28D@0900 [facility] Last Admin: 01/08/24 09:00 Dose: 300 mg Benzocaine (Throat Lozenge, Medicated Lozenge) 1 lozenge MUCOUS MEM Q2H PRN PRN Reason: Sore Throat Last Admin: 12/30/23 20:59 Dose: 1 lozenge Benztropine Mesylate (Benztropine Mesylate 0.5 Mg Tablet) 0.5 mg PO TID PRN PRN Reason: Extrapyramidal Effects Glucose (Glucose Gel 15 Gm Gel..Gram.) 15 gm PO Q15M PRN; Protocol PRN Reason: per Hypoglycemia Standing Ord. Guaifenesin/Dextromethorphan (Guaifenesin Dm 100/10/5 Ml 5 Ml Syrup) 5 ml PO Q4H PRN PRN Reason: Cough Last Admin: 01/06/24 22:48 Dose: 5 ml Hydroxyzine HCl (Hydroxyzine Hcl 25 Mg Tablet) 25 mg PO Q6H PRN PRN Reason: Anxiety Last Admin: 01/15/24 21:08 Dose: 25 mg Dextrose (D10) 250 mls @ 750 mls/hr IV Q15M PRN; Protocol PRN Reason: per Hypoglycemia Standing Ord. Insulin Glargine (Insulin Glargine,Hum.Rec.Anlog 100 Unit/Ml 10 Ml Vial) 20 unit SUBCUT BEDTIME [facility] Last Admin: 01/15/24 21:06 Dose: 20 unit Insulin Human Lispro (Insulin Lispro 100 Unit/Ml 3 Ml Vial) 0 unit SUBCUT QIDACHS [facility]; Protocol Last Admin: 01/16/24 11:39 Dose: 2 unit Lamotrigine (Lamotrigine 100 Mg Tablet) 150 mg PO BEDTIME [facility] Last Admin: 01/15/24 21:07 Dose: 150 mg Levothyroxine Sodium (Levothyroxine Sodium 150 Mcg Tablet) 150 mcg PO DAILY@0800 [facility] Last Admin: 01/16/24 08:48 Dose: 150 mcg Magnesium Hydroxide (Milk Of Magnesia 30 Ml Oral.Susp) 30 ml PO DAILY PRN PRN Reason: Constipation Memantine (Memantine Hcl 5 Mg Tablet) 5 mg PO BID [facility] Last Admin: 01/16/24 08:48 Dose: 5 mg Metformin HCl (Metformin Hcl Er 500 Mg Tab.Er.24h) 1,000 mg PO DAILY@1700 [facility] Last Admin: 01/15/24 17:26 Dose: 1,000 mg Ondansetron HCl (Ondansetron Odt 8 Mg Tab.Rapdis) 8 mg TRANSLINGU Q8H PRN PRN Reason: Nausea and Vomiting Last Admin: 12/31/23 08:39 Dose: 8 mg Sertraline HCl (Sertraline Hcl 100 Mg Tablet) 100 mg PO DAILY [facility] Last Admin: 01/16/24 08:48 Dose: 100 mg Simethicone (Simethicone 80 Mg Tab.Chew) 80 mg PO QIDWMHS PRN PRN Reason: Gas Trazodone HCl (Trazodone Hcl 50 Mg Tablet) 50 mg PO BEDTIME MRX1 PRN PRN Reason: Insomnia Last Admin: 01/16/24 00:44 Dose: 50 mg Allergies Allergies Allergy/AdvReac Type Severity Reaction Status Date / Time amoxicillin [AMOXICILLIN] Allergy Mild VOMITING/ABD Verified 09/10/23 19:44 PAIN Assessment & Plan Assessment & Plan (1) Schizoaffective disorder: Status: Acute Code(s): F25.9 - Schizoaffective disorder, unspecified (2) Hypothyroidism: Status: Acute Code(s): E03.9 - Hypothyroidism, unspecified (3) Type 2 diabetes mellitus: Status: Acute Code(s): E11.9 - Type 2 diabetes mellitus without complications (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 Plan: CV 15 minute safety checks Continue home medications: Haldol 10mg PO daily Synthroid 200mcg PO daily Obtain labs; A1C/POCs Obtain collateral from sister Obtain records from last hospitalization. MOCA Referral for [facility] services if patient is agreeable. encourage medication compliance;consider VARGAS discharge planning 09/11: Elevated fasting blood sugar elevated hemoglobin A1c 9.2 med consult placed put in point of care needed will start metformin Would benefit from clarity over recent hospitalization what this were done details regarding treatment continue Haldol unclear if patient has Healthcare proxy his [place] was low slowed cognition with poor details in depth at times during blankly regarding making judgments Unclear if any of this relates to past coma or 2 hypothyroidism. He does seem more impaired than when last seen unclear when last imaging was. Continue Haldol sitter neuro indira involvement regarding diagnostic picture. Patient does remain paranoid blunted suspicious apathetic. He might benefit from longer-term placement if available and appropriate at a later time involved [facility] involvement would be quite helpful 09/12: cont haldol get records ? hcp ? start antidep unclear hx 09/13: Keeping to self. More talkative today. Pt concerned he will be transferred to [facility]. Pt stated, The paper I signed yesterday. Are you going to send me back to the last hospital? That place was horrible . Pt was educated he signed a release of information with Dr. Gonzalez to obtain records from [facility]. Pt was given a copy of the release he signed. Despite this, pt continues to be anxious about being transferred. Pt denies SI/HI/VH/AH. 09/14: Keeping to self. active on unit. showered. Pt reports feeling alright today; pt reports he is worried about where I'm going to go . Pt continues concerned he will be transferred to [facility]. Pt denies SI/HI/VH/AH. 09/15:Pt reports feeling alright today; pt continues to report he is worried about where I'm going to go . Responding with brief responses. Guarded. Observed standing in one place for a long period of time. Appears confused. Pt denies SI/HI/VH/AH. T/W spoke to patient's sister, Ros, with patients verbal consent. Ros reports concerns regarding patients ability to make decisions regarding his mental and physical health. She plans on contacting legal advice on obtaining guardianship of patient. 09/16:Patient's presents similar to yesterday's presentation. Responding with brief responses. Guarded. Observed standing in one place for a long period of time, when asked what he is doing, pt stated, I don't know . Pt reports he plans on contacting his sister today and try to convince her for me to stay there . Pt denies SI/HI/VH/AH. Continue current tx plan. 09/17: brief responses. Guarded. 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 Pt denies SI/HI/VH/AH. T/W and Dr. Gonzalez spoke to patient's sister, Ros. Ros stated being [facility] HCP and plans on finding document. She plans on coming to the hospital on Saturday to be present for [facility] intake. 09/21: No changes 09/22:Patient flat apathetic difficult insight and judgment his sister is healthcare proxy if needed patient is accepting medical treatment Referral to [facility] 09/23:Considers starting Haldol Decanoate patient is agreeable superficially difficulty with exec fx was seen [facility] 09/24:Pt seen in f/u mood flat dysphoric difficulty engaging in conversation preoccupied with thought he wont be living with family thing slowed apathetic no clear response with namenda ? some improvement inc lamictal start low dose sertraline inc lamictal ck tsh 09/25:Start Abilify as augmentation with Haldol see if can be more stimulating regarding depressed mood apathetic limited engagement sertraline 50 mg Lamictal 25 b.i.d. referral to [facility] which would have structure unclear if patient can engage with this he remains quite depressed has delusional beliefs regarding housing and that things have been done he has repeatedly tried to reach out to his sister denies active SI needs much help dressing talking with others encouragement to eat severe thought blocking Abilify might be more stimulating than Haldol which can be more dulling 09/26:Abilify started sertraline Lamictal encouraged step-down to [facility] encourage reality orientation denies active SI 09/27: Continue current regimen and plans 09/28: Continue current regimen and plans. 09/29: Referral to [facility] increase Abilify to 5 mg daily eventually try and taper Haldol sertraline 50 mg daily 09/30:Increase Abilify to 10 mg lower Haldol to 7 mg continue sertraline and Lamictal 10/01:Abilify increased to 10 mg continue to taper Haldol sertraline 100 mg Lamictal increased to 75 mg patient apathetic withdrawn difficulty with placement some paranoia continues difficulty with decision making at times. Not physically aggressive internally preoccupied seems somewhat improved with Abilify sertraline Continue discharge planning 10/02:Patient somewhat blunted flat slowed thinking during the day times staring. Change Abilify to 10 mg at bedtime. Scheduled Haldol will lowered to 2.5 mg Continue sertraline 100 mg Namenda 5 b.i.d. 10/03:Haldol discontinued modafinil low-dose monitor for psychosis or agitation continue discharge planning 10/06: May need to firm healthcare proxy calls have been placed to sister to try to help in discharge planning. Referrals made. Patient cooperative with care 10/07:Pharmacy ordering Abilify maintain a increase modafinil 100 mg patient remains flat passive depressed some improvement noted no current paranoia noted continue discharge planning no current safe discharge plan 10/08: Increase Lamictal 100 mg Abilify Maintena 400 mg hold modafinil unclear if was overly stimulating patient continues to present internally preoccupied. 10/09:Healthcare proxy invoked discharge planning continue Lamictal Abilify pending maintain a 10/10:Healthcare proxy invoked new CV signed discharge planning. 10/11 keep same treatment 10/12 keep same treatment 10/13: Continue plan of care Lamictal Abilify discharge planning sertraline 10/14: stable. continue current mgmt. 10/15: stable. continue current mgmt. 10/16: stable presentation. continue current mgmt. 10/17: as for yesterday. 10/18: no changes. 10/19: stabel, safe. no change. 10/20: no change in presentation. calm, cooperative. active on unit, social with select peers, attending groups. Pt reports feeling alright . denies SI/HI/VH/AH. Social work waiting to hear from possible placement location. Continue current tx plan. 10/21: continue current tx plan. awaiting placement. 10/22: calm, cooperative. active on unit, social with select peers, attending groups. Pt reports feeling good ; pt stated, I'm waiting to see where I'm going . denies SI/HI/VH/AH. Showered with encouragement. 10/23: continue current tx plan. 10/24: calm, cooperative. active on unit, social with select peers, attending groups. Pt reports feeling good ; pt stated, I just want a place to live . 10/25- likely at baseline for him- CTP 10/26 CTP likely needs placement 10/27: continue current tx plan. awaiting placement. 10/28: Similar to yesterday. No change in presentation. 10/29: Pt reports feeling good ;pt stated, just waiting for a place to live . denies any issues at this time. 10/30: calm, cooperative. active on unit, social with select peers, attending groups. Pt reports feeling worried about where I am going to live . denies any issues at this time. 10/21: no change in presentation. continue current tx plan. 11/01: continue current management and treatment plan. 11/02: Continue current management and treatment plan. 11/03: Continue current management and treatment plan. 11/04: Active on unit. calm, cooperative. social with select peers, attending groups. denies any issues at this time. He reports sleeping well. Pt reports he would be interested in applying for [facility] services; social work aware. 11/05: Active on unit. calm, cooperative. social with select peers, attending groups. denies any issues at this time. Pt reports feeling okay ; he reports anxiety regarding placement. Continue current tx plan. 11/07/23 [facility] referral has appropriate concerns re living stuation cont abilify lamictal 11/08/23 Pt cooperative with care d/c planning working with sw cont d/c planning cont lamictal abilify 11/12/23 Patient increasingly despairing aware of no clear discharge plan periods needs cuing for much functioning limited social engaged needs help regarding diabetes and medication compliance reportedly had been rejected by multiple rest homes patient not threatening intermittently hopeless helpless very limited family contact at this time 11/13/23 pt flat depressed hopeless helpless unable to fx without structure 11/15 continue tx. 9/15 continue tx. 11/18/2023 Continue plan of care referral to [facility] TSH low will decrease levothyroxine 11/19/23 Pt flat dysphor ic inc hopeless helpless lamictal 150 hs dec levothyroxine 150 d/c planning cont 11/20/23 lamictal inc d/c planning dm referral 12/02/2023 Continue Lamictal Abilify patient cooperative with care gets despairing at times regarding lack of family support problematic discharge planning in relationship to finding suitable structured place to live 12/02: Social with peers. Per nursing, pt did not sleep last night. Pt reports he did not sleeping because he wasn't tired but feel okay ; ordered Ativan 1mg PO bedtime for tonight, pt aware. 12/03: In bed sleeping, pt reports he is catching up on sleep from the night before. Calm, cooperative. T/W and wharf worker, Billie, with pt to discuss possibly going to the [facility]. Pt reports he would like to call his sister and speak to her before deciding. DC Ativan. 12/04: Active on unit, social with peers. attending groups. T/W and wharf worker, Billie, met with pt to discuss discharge plan. Pt reports he doesn't know if he would want to go to a homeless alf; he states he would rather live on the street because I've done it before . Pt encouraged to consider benefits of going to a alf with the winter months coming; he agreed to doing phone intake with social group worker on Saturday with Shaylee Moore. 12/05: Pt presents similar to yesterday. Continues to perseverate about [facility] being a alf and not a program; He continues to agree to do phone intake on Saturday. Discussed VARGAS, pt reports he want time to consider d/t not liking needles . 12/08: Pt had phone interview with [facility], however, after multiple attempts at calling them, no one at [facility] picked up the phone to conduct interview. wharf worker to get into contact with them again. Pt denies any issues at this time. 12/09: Active on unit, social with peers. Pt denies any issues at this time. Patient agreed to receiving Abilify Maintena; risks/benefits reviewed. Waiting on placement. 12/10: Patient received Abilify Maintena yesterday. He denies any side effects. Pleasant. Waiting on placement. 12/11: continue current tx plan. 12/12: similar to days prior. waiting on placement. continue current tx plan. 12/13: appearing more depressed or demoralized. notes lots of people come and go. continue current mgmt. 12/14: same as for yesterday: find me a place to live? continue current mgmt. 12/15: out and about more. otherwise stable. continue current mgmt. 12/16: continue current tx plan. 12/17: continue current tx plan. 12/18: awaiting placement. denies any issues. 12/19: Pt reports feeling alright ; Social work continues to work on placement. Pt denies any issues at this time. Pt reports sleeping well. 12/20: Continue plan of care 12/21: Continue plan of care 12/22: continue current tx plan. 12/23: continue tx plan. 12/24: continue tx plan. 12/25: similar to days prior. waiting on placement. 12/26: Continue current tx plan. 12/27: Continue current management and treatment plan. 12/28: Continue current management and treatment plan. 12/29: In bed, tested positive for Covid. Vomited x1 per nursing. Pt reports feeling okay ; sleeping most of shift. Continue current tx plan. 12/30: Pt reports feeling okay ; continues on isolation d/t being Covid positive. Utilizing IPad. Pt reports sleeping well. denies SI/HI/VH/AH. Has not vomited today. 12/31: Pt reports feeling alright ; pt stated, I still have a stuffy nose, cough and headache but I'm starting to feel better . continues on isolation. denies other issues at this time. Continue current tx plan. 01/01: pt reports covid symptoms are improving. continues waiting on placement. 01/02: Continue tx plan. 01/05/24: no changes. 01/05: Active on unit. Pt reports feeling okay today; denies any issues at this time. pt had meeting with [facility] to be placed on list for temporary placement; pt declined. Dr. Gonzalez to speak to patient regarding this. 01/06: Discussed placement; pt reports he is thinking about saying yes to the motel . pt reports he does not believe his sister or social group worker that he has money saved in the bank. Pt believes if he left to go to the motel he would be stuck there with no money . Social work to discuss with pt. 01/07: Active on unit. social with peers. denies any issues. Pt reports feeling okay ; reports he is still thinking about where he will go after discharge. 01/08: waiting on placement. continue current tx plan. 01/09: Patient continues to wait on placement. 119: Continue current management and treatment plan. 03/13: Continue current management and treatment plan. 01/12: waiting on placement. 01/13: continue current tx plan. Plan 1. Continue with same treatment. 2. Waiting for placement Reason for continued inpatient stay Substantial Risk for: inability to function, rapid decompensation and med/psych decompensation Time Spent With Patient Time: Total time managing care of this patient today _20___ minutes.
[2024-01-16 16:02] LABS: Glucose, Whole Blood 121 mg/dL (60-115)
[2024-01-16] MEDS: metFORMIN HCl ER 500 MG TAB.ER.24H 1000 MG PO (16:27)
[2024-01-16 20:00] VITALS: BP 133/71; PULSE 77; RESP 16; TEMP 35.9; O2SAT 99
[2024-01-16 21:09] LABS: Glucose, Whole Blood 158 mg/dL (60-115)
[2024-01-16] MEDS: hydrOXYzine HCL 25 MG TABLET PO (21:24)
[2024-01-16] MEDS: lamoTRIgine 100 MG TABLET 150 MG PO (21:24)
[2024-01-16] MEDS: Insulin Glargine,Hum.rec.anlog 100 UNIT/ML 10 ML VIAL 20 UNIT SUBCUT (21:25)
[2024-01-17 06:56] LABS: Glucose, Whole Blood 129 mg/dL (60-115)
[2024-01-17] MEDS: Memantine HCl 5 MG TABLET PO ×2 (08:01→20:13)
[2024-01-17] MEDS: Levothyroxine Sodium 150 MCG TABLET PO (08:01)
[2024-01-17] MEDS: Sertraline HCL 100 MG TABLET PO (08:01)
[2024-01-17 08:37] VITALS: BP 106/58; PULSE 89; RESP 16; TEMP 36.8; O2SAT 94
[2024-01-17 11:26] LABS: Glucose, Whole Blood 124 mg/dL (60-115)
--- NOTE | 2024-01-17 12:55 | P.PNPSI_ITS ---
Subjective Subjective Date of Service: 01/17/24 Reason For Visit: paranoia cognitive impairment Subjective Notes: Conditional Voluntary Interim History: The nursing staff reported he has been pleasant and cooperative fully compliant with treatment. He slept 8 hours. The occupational therapist reported that he has been doing well at groups. On interview the patient denies new symptoms no side effects. Mental Status Exam Mental Status Exam Patient Appearance: Well Grooomed and Appropriate Patient Orientation: Person and Situation Level of Consciousness: Awake and Appropriate Patient Behavior: Guarded and Passive Mood Description: Withdrawn Affect Description: Constricted Patient Cognition Impaired: Yes Ability to Follow Directions: Good Speech Pattern: Clear 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: None Delusions: Not Present Thought Process: Distracted and Slowed Thinking Thought Content: positive for [place] and positive for Poverty of Content Judgement: Fair Diagnostics Vital Signs (24Hr): Vital Signs - 24 hr 01/16/24 20:00 01/17/24 08:37 Temperature 96.7 F L 98.2 F Pulse Rate 77 89 Respiratory Rate 16 16 Blood Pressure 133/71 106/58 L Pulse Oximetry 99 94 Oxygen Delivery Method Room Air Room Air BMI result Body Mass Index 32.9 Labs 09/10/23 20:00 01/16/24 08:08 Labs: Laboratory Results - last 48 hr 01/15/24 01/15/24 01/16/24 17:20 20:58 06:39 Creatinine Estim Creat Clear Calc Estimated GFR POC Glucose 227 H 140 H 133 H 01/16/24 01/16/24 01/16/24 08:08 11:27 15:58 Creatinine 0.97 Estim Creat Clear Calc 95.5 Estimated GFR > 60 POC Glucose 166 H 121 H 01/16/24 01/17/24 01/17/24 21:01 06:50 11:22 Creatinine Estim Creat Clear Calc Estimated GFR POC Glucose 158 H 129 H 124 H Imaging Radiology Impressions: ITS Impressions Brain MRI 09/19/23 20:33 IMPRESSION: 1. No demonstrated acute intracranial abnormalities. 2. Chronic mild to moderate nonspecific white matter changes, most notably in the deep white matter of the right frontal lobe. Mild to moderate generalized cerebral volume loss. Medications Medications Current Medications Acetaminophen (Acetaminophen 325 Mg Tablet) 650 mg PO Q6H PRN PRN Reason: Headache/Pain Mild Scale (1-3) Last Admin: 01/01/24 08:45 Dose: 650 mg Al Hydroxide/Mg Hydroxide (Magnesium Hydrox/Alum Hydrox 30 Ml Oral.Susp) 30 ml PO Q6H PRN PRN Reason: Heartburn/Nausea Last Admin: 11/27/23 10:48 Dose: 30 ml Aripiprazole (Aripiprazole Er 300 Mg Suser.Syr) 300 mg IM Q28D@0900 [facility] Last Admin: 01/08/24 09:00 Dose: 300 mg Benzocaine (Throat Lozenge, Medicated Lozenge) 1 lozenge MUCOUS MEM Q2H PRN PRN Reason: Sore Throat Last Admin: 12/30/23 20:59 Dose: 1 lozenge Benztropine Mesylate (Benztropine Mesylate 0.5 Mg Tablet) 0.5 mg PO TID PRN PRN Reason: Extrapyramidal Effects Glucose (Glucose Gel 15 Gm Gel..Gram.) 15 gm PO Q15M PRN; Protocol PRN Reason: per Hypoglycemia Standing Ord. Guaifenesin/Dextromethorphan (Guaifenesin Dm 100/10/5 Ml 5 Ml Syrup) 5 ml PO Q4H PRN PRN Reason: Cough Last Admin: 01/06/24 22:48 Dose: 5 ml Hydroxyzine HCl (Hydroxyzine Hcl 25 Mg Tablet) 25 mg PO Q6H PRN PRN Reason: Anxiety Last Admin: 01/16/24 21:24 Dose: 25 mg Dextrose (D10) 250 mls @ 750 mls/hr IV Q15M PRN; Protocol PRN Reason: per Hypoglycemia Standing Ord. Insulin Glargine (Insulin Glargine,Hum.Rec.Anlog 100 Unit/Ml 10 Ml Vial) 20 unit SUBCUT BEDTIME [facility] Last Admin: 01/16/24 21:25 Dose: 20 unit Insulin Human Lispro (Insulin Lispro 100 Unit/Ml 3 Ml Vial) 0 unit SUBCUT QIDACHS [facility]; Protocol Last Admin: 01/17/24 11:27 Dose: Not Given Lamotrigine (Lamotrigine 100 Mg Tablet) 150 mg PO BEDTIME [facility] Last Admin: 01/16/24 21:24 Dose: 150 mg Levothyroxine Sodium (Levothyroxine Sodium 150 Mcg Tablet) 150 mcg PO DAILY@0800 [facility] Last Admin: 01/17/24 08:01 Dose: 150 mcg Magnesium Hydroxide (Milk Of Magnesia 30 Ml Oral.Susp) 30 ml PO DAILY PRN PRN Reason: Constipation Memantine (Memantine Hcl 5 Mg Tablet) 5 mg PO BID [facility] Last Admin: 01/17/24 08:01 Dose: 5 mg Metformin HCl (Metformin Hcl Er 500 Mg Tab.Er.24h) 1,000 mg PO DAILY@1700 [facility] Last Admin: 01/16/24 16:27 Dose: 1,000 mg Ondansetron HCl (Ondansetron Odt 8 Mg Tab.Rapdis) 8 mg TRANSLINGU Q8H PRN PRN Reason: Nausea and Vomiting Last Admin: 12/31/23 08:39 Dose: 8 mg Sertraline HCl (Sertraline Hcl 100 Mg Tablet) 100 mg PO DAILY [facility] Last Admin: 01/17/24 08:01 Dose: 100 mg Simethicone (Simethicone 80 Mg Tab.Chew) 80 mg PO QIDWMHS PRN PRN Reason: Gas Trazodone HCl (Trazodone Hcl 50 Mg Tablet) 50 mg PO BEDTIME MRX1 PRN PRN Reason: Insomnia Last Admin: 01/16/24 21:25 Dose: 50 mg Allergies Allergies Allergy/AdvReac Type Severity Reaction Status Date / Time amoxicillin [AMOXICILLIN] Allergy Mild VOMITING/ABD Verified 09/10/23 19:44 PAIN Assessment & Plan Assessment & Plan (1) Schizoaffective disorder: Status: Acute Code(s): F25.9 - Schizoaffective disorder, unspecified (2) Hypothyroidism: Status: Acute Code(s): E03.9 - Hypothyroidism, unspecified (3) Type 2 diabetes mellitus: Status: Acute Code(s): E11.9 - Type 2 diabetes mellitus without complications (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 Plan: CV 15 minute safety checks Continue home medications: Haldol 10mg PO daily Synthroid 200mcg PO daily Obtain labs; A1C/POCs Obtain collateral from sister Obtain records from last hospitalization. MOCA Referral for DMH services if patient is agreeable. encourage medication compliance;consider VARGAS discharge planning 09/11: Elevated fasting blood sugar elevated hemoglobin A1c 9.2 med consult placed put in point of care needed will start metformin Would benefit from clarity over recent hospitalization what this were done details regarding treatment continue Haldol unclear if patient has Healthcare proxy his [place] was low slowed cognition with poor details in depth at times during blankly regarding making judgments Unclear if any of this relates to past coma or 2 hypothyroidism. He does seem more impaired than when last seen unclear when last imaging was. Continue Haldol sitter neuro indira involvement regarding diagnostic picture. Patient does remain paranoid blunted suspicious apathetic. He might benefit from longer- term placement if available and appropriate at a later time involved DMH involvement would be quite helpful 09/12: cont haldol get records ? hcp ? start antidep unclear hx 09/13: Keeping to self. More talkative today. Pt concerned he will be transferred to [facility]. Pt stated, The paper I signed yesterday. Are you going to send me back to the last hospital? That place was horrible . Pt was educated he signed a release of information with Dr. Gonzalez to obtain records from [facility]. Pt was given a copy of the release he signed. Despite this, pt continues to be anxious about being transferred. Pt denies SI/HI/VH/AH. 09/14: Keeping to self. active on unit. showered. Pt reports feeling alright today; pt reports he is worried about where I'm going to go . Pt continues concerned he will be transferred to [facility]. Pt denies SI/HI/VH/AH. 09/15:Pt reports feeling alright today; pt continues to report he is worried about where I'm going to go . Responding with brief responses. Guarded. Observed standing in one place for a long period of time. Appears confused. Pt denies SI/HI/VH/AH. T/W spoke to patient's sister, Ros, with patients verbal consent. Ros reports concerns regarding patients ability to make decisions regarding his mental and physical health. She plans on contacting legal advice on obtaining guardianship of patient. 09/16:Patient's presents similar to yesterday's presentation. Responding with brief responses. Guarded. Observed standing in one place for a long period of time, when asked what he is doing, pt stated, I don't know . Pt reports he plans on contacting his sister today and try to convince her for me to stay there . Pt denies SI/HI/VH/AH. Continue current tx plan. 09/17: brief responses. Guarded. 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 Pt denies SI/HI/VH/AH. T/W and Dr. Gonzalez spoke to patient's sister, Ros. Ros stated being [facility] HCP and plans on finding document. She plans on coming to the hospital on Saturday to be present for [facility] intake. 09/21: No changes 09/22:Patient flat apathetic difficult insight and judgment his sister is healthcare proxy if needed patient is accepting medical treatment Referral to [facility] 09/23:Considers starting Haldol [place] patient is agreeable superficially difficulty with exec fx was seen [facility] 09/24:Pt seen in f/u mood flat dysphoric difficulty engaging in conversation preoccupied with thought he wont be living with family thing slowed apathetic no clear response with namenda ? some improvement inc lamictal start low dose sertraline inc lamictal ck tsh 09/25:Start Abilify as augmentation with Haldol see if can be more stimulating regarding depressed mood apathetic limited engagement sertraline 50 mg Lamictal 25 b.i.d. referral to [facility] which would have structure unclear if patient can engage with this he remains quite depressed has delusional beliefs regarding housing and that things have been done he has repeatedly tried to reach out to his sister denies active SI needs much help dressing talking with others encouragement to eat severe thought blocking Abilify might be more stimulating than Haldol which can be more dulling 09/26:Abilify started sertraline Lamictal encouraged step-down to [facility] encourage reality orientation denies active SI 09/27: Continue current regimen and plans 09/28: Continue current regimen and plans. 09/29: Referral to [facility] increase Abilify to 5 mg daily eventually try and taper Haldol sertraline 50 mg daily 09/30:Increase Abilify to 10 mg lower Haldol to 7 mg continue sertraline and Lamictal 10/01:Abilify increased to 10 mg continue to taper Haldol sertraline 100 mg Lamictal increased to 75 mg patient apathetic withdrawn difficulty with placement some paranoia continues difficulty with decision making at times. Not physically aggressive internally preoccupied seems somewhat improved with Abilify sertraline Continue discharge planning 10/02:Patient somewhat blunted flat slowed thinking during the day times staring. Change Abilify to 10 mg at bedtime. Scheduled Haldol will lowered to 2.5 mg Continue sertraline 100 mg Namenda 5 b.i.d. 10/03:Haldol discontinued modafinil low-dose monitor for psychosis or agitation continue discharge planning 10/06: May need to firm healthcare proxy calls have been placed to sister to try to help in discharge planning. Referrals made. Patient cooperative with care 10/07:Pharmacy ordering Abilify maintain a increase modafinil 100 mg patient remains flat passive depressed some improvement noted no current paranoia noted continue discharge planning no current safe discharge plan 10/08: Increase Lamictal 100 mg Abilify Maintena 400 mg hold modafinil unclear if was overly stimulating patient continues to present internally preoccupied. 10/09:Healthcare proxy invoked discharge planning continue Lamictal Abilify pending maintain a 10/10:Healthcare proxy invoked new CV signed discharge planning. 10/11 keep same treatment 10/12 keep same treatment 10/13: Continue plan of care Lamictal Abilify discharge planning sertraline 10/14: stable. continue current mgmt. 10/15: stable. continue current mgmt. 10/16: stable presentation. continue current mgmt. 10/17: as for yesterday. 10/18: no changes. 10/19: stabel, safe. no change. 10/20: no change in presentation. calm, cooperative. active on unit, social with select peers, attending groups. Pt reports feeling alright . denies SI/HI/VH/AH. Social work waiting to hear from possible placement location. Continue current tx plan. 10/21: continue current tx plan. awaiting placement. 10/22: calm, cooperative. active on unit, social with select peers, attending groups. Pt reports feeling good ; pt stated, I'm waiting to see where I'm going . denies SI/HI/VH/AH. Showered with encouragement. 10/23: continue current tx plan. 10/24: calm, cooperative. active on unit, social with select peers, attending groups. Pt reports feeling good ; pt stated, I just want a place to live . 10/25- likely at baseline for him- CTP 10/26 CTP likely needs placement 10/27: continue current tx plan. awaiting placement. 10/28: Similar to yesterday. No change in presentation. 10/29: Pt reports feeling good ;pt stated, just waiting for a place to live . denies any issues at this time. 10/30: calm, cooperative. active on unit, social with select peers, attending groups. Pt reports feeling worried about where I am going to live . denies any issues at this time. 10/21: no change in presentation. continue current tx plan. 11/01: continue current management and treatment plan. 11/02: Continue current management and treatment plan. 11/03: Continue current management and treatment plan. 11/04: Active on unit. calm, cooperative. social with select peers, attending groups. denies any issues at this time. He reports sleeping well. Pt reports he would be interested in applying for [facility] services; social work aware. 11/05: Active on unit. calm, cooperative. social with select peers, attending groups. denies any issues at this time. Pt reports feeling okay ; he reports anxiety regarding placement. Continue current tx plan. 11/07/23 DMH referral has appropriate concerns re living stuation cont abilify lamictal 11/08/23 Pt cooperative with care d/c planning working with sw cont d/c planning cont lamictal abilify 11/12/23 Patient increasingly despairing aware of no clear discharge plan periods needs cuing for much functioning limited social engaged needs help regarding diabetes and medication compliance reportedly had been rejected by multiple rest homes patient not threatening intermittently hopeless helpless very limited family contact at this time 11/13/23 pt flat depressed hopeless helpless unable to fx without structure 11/15 continue tx. 11/16 continue tx. 11/18/2023 Continue plan of care referral to [facility] TSH low will decrease levothyroxine 11/19/23 Pt flat dysphor ic inc hopeless helpless lamictal 150 hs dec levothyroxine 150 d/c planning cont 11/20/23 lamictal inc d/c planning dm referral 12/02/2023 Continue Lamictal Abilify patient cooperative with care gets despairing at times regarding lack of family support problematic discharge planning in relationship to finding suitable structured place to live 12/02: Social with peers. Per nursing, pt did not sleep last night. Pt reports he did not sleeping because he wasn't tired but feel okay ; ordered Ativan 1mg PO bedtime for tonight, pt aware. 12/03: In bed sleeping, pt reports he is catching up on sleep from the night before. Calm, cooperative. T/W and clinical social worker, Billie, with pt to discuss possibly going to the [facility]. Pt reports he would like to call his sister and speak to her before deciding. DC Ativan. 12/04: Active on unit, social with peers. attending groups. T/W and clinical social worker, Billie, met with pt to discuss discharge plan. Pt reports he doesn't know if he would want to go to a homeless senior care; he states he would rather live on the street because I've done it before . Pt encouraged to consider benefits of going to a senior care with the winter months coming; he agreed to doing phone intake with social service assistant on Saturday with [facility]. 12/05: Pt presents similar to yesterday. Continues to perseverate about [facility] being a senior care and not a program; He continues to agree to do phone intake on Saturday. Discussed VARGAS, pt reports he want time to consider d/t not liking needles . 12/08: Pt had phone interview with [facility], however, after multiple attempts at calling them, no one at [facility] picked up the phone to conduct interview. clinical social worker to get into contact with them again. Pt denies any issues at this time. 12/09: Active on unit, social with peers. Pt denies any issues at this time. Patient agreed to receiving Abilify Maintena; risks/benefits reviewed. Waiting on placement. 12/10: Patient received Abilify Maintena yesterday. He denies any side effects. Pleasant. Waiting on placement. 12/11: continue current tx plan. 12/12: similar to days prior. waiting on placement. continue current tx plan. 12/13: appearing more depressed or demoralized. notes lots of people come and go. continue current mgmt. 12/14: same as for yesterday: find me a place to live? continue current mgmt. 12/15: out and about more. otherwise stable. continue current mgmt. 12/16: continue current tx plan. 12/17: continue current tx plan. 12/18: awaiting placement. denies any issues. 12/19: Pt reports feeling alright ; Social work continues to work on placement. Pt denies any issues at this time. Pt reports sleeping well. 12/20: Continue plan of care 12/21: Continue plan of care 12/22: continue current tx plan. 12/23: continue tx plan. 12/24: continue tx plan. 12/25: similar to days prior. waiting on placement. 12/26: Continue current tx plan. 12/27: Continue current management and treatment plan. 12/28: Continue current management and treatment plan. 12/29: In bed, tested positive for Covid. Vomited x1 per nursing. Pt reports feeling okay ; sleeping most of shift. Continue current tx plan. 12/30: Pt reports feeling okay ; continues on isolation d/t being Covid positive. Utilizing IPad. Pt reports sleeping well. denies SI/HI/VH/AH. Has not vomited today. 12/31: Pt reports feeling alright ; pt stated, I still have a stuffy nose, cough and headache but I'm starting to feel better . continues on isolation. denies other issues at this time. Continue current tx plan. 01/01: pt reports covid symptoms are improving. continues waiting on placement. 01/02: Continue tx plan. 01/05/24: no changes. 01/05: Active on unit. Pt reports feeling okay today; denies any issues at this time. pt had meeting with [facility] to be placed on list for temporary placement; pt declined. Dr. Gonzalez to speak to patient regarding this. 01/06: Discussed placement; pt reports he is thinking about saying yes to the motel . pt reports he does not believe his sister or social service assistant that he has money saved in the bank. Pt believes if he left to go to the motel he would be stuck there with no money . Social work to discuss with pt. 01/07: Active on unit. social with peers. denies any issues. Pt reports feeling okay ; reports he is still thinking about where he will go after discharge. 01/08: waiting on placement. continue current tx plan. 01/09: Patient continues to wait on placement. 119: Continue current management and treatment plan. 03/13: Continue current management and treatment plan. 01/12: waiting on placement. 01/13: continue current tx plan. Plan 1. Continue with same treatment. 2. Waiting for placement Reason for continued inpatient stay Substantial Risk for: inability to function, rapid decompensation and med/psych decompensation Time Spent With Patient Time: Total time managing care of this patient today __20__ minutes.
[2024-01-17 16:28] LABS: Glucose, Whole Blood 164 mg/dL (60-115)
[2024-01-17] MEDS: metFORMIN HCl ER 500 MG TAB.ER.24H 1000 MG PO (16:30)
[2024-01-17] MEDS: Insulin Lispro 100 UNIT/ML 3 ML VIAL SUBCUT ×2 (16:31→20:16)
[2024-01-17 19:49] LABS: Glucose, Whole Blood 168 mg/dL (60-115)
[2024-01-17 20:00] VITALS: BP 138/83; PULSE 89; RESP 18; TEMP 37.2; O2SAT 98
[2024-01-17] MEDS: traZODone HCL 50 MG TABLET PO (20:13)
[2024-01-17] MEDS: lamoTRIgine 100 MG TABLET 150 MG PO (20:13)
[2024-01-17] MEDS: hydrOXYzine HCL 25 MG TABLET PO (20:13)
[2024-01-17] MEDS: Insulin Glargine,Hum.rec.anlog 100 UNIT/ML 10 ML VIAL 20 UNIT SUBCUT (20:15)
[2024-01-18 06:43] LABS: Glucose, Whole Blood 115 mg/dL (60-115)
[2024-01-18 09:26] VITALS: BP 121/71; PULSE 71; RESP 16; TEMP 36.6; O2SAT 99
[2024-01-18] MEDS: Memantine HCl 5 MG TABLET PO ×2 (09:27→20:51)
[2024-01-18] MEDS: Levothyroxine Sodium 150 MCG TABLET PO (09:27)
[2024-01-18] MEDS: Sertraline HCL 100 MG TABLET PO (09:27)
--- NOTE | 2024-01-18 12:20 | P.PNPSI_ITS ---
Subjective Subjective Date of Service: 01/18/24 Reason For Visit: paranoia cognitive impairment Subjective Notes: Conditional Voluntary Interim History: Patient was seen and discussed in rounds today. Records and plans were reviewed. He continues to be very unhappy, having been moved from the 3rd floor to this unit for placement. He feels bored. POC was changed to once a day. No behavioral issues. Eating and sleeping adequately. No other complaints or side effects. Review of Systems Review of Systems Yes all other systems are reviewed and are negative Mental Status Exam Mental Status Exam Patient Appearance: Well Grooomed and Appropriate Patient Orientation: Person and Situation Level of Consciousness: Awake and Appropriate Patient Behavior: Guarded and Passive Mood Description: Withdrawn Affect Description: Constricted Patient Cognition Impaired: Yes Ability to Follow Directions: Good Speech Pattern: Clear 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: None Delusions: Not Present Thought Process: Distracted and Slowed Thinking Thought Content: positive for Jeremiah and positive for Poverty of Content Judgement: Fair Diagnostics Vital Signs (24Hr): Vital Signs - 24 hr 01/17/24 20:00 01/18/24 09:26 Temperature 98.9 F 97.8 F Pulse Rate 89 71 Respiratory Rate 18 16 Blood Pressure 138/83 121/71 Pulse Oximetry 98 99 Oxygen Delivery Method Room Air Room Air BMI result Body Mass Index 32.9 Labs 09/10/23 20:00 01/16/24 08:08 Labs: Laboratory Results - last 48 hr 01/16/24 01/16/24 01/17/24 15:58 21:01 06:50 POC Glucose 121 H 158 H 129 H 01/17/24 01/17/24 01/17/24 11:22 16:24 19:40 POC Glucose 124 H 164 H 168 H 01/18/24 06:38 POC Glucose 115 Imaging Radiology Impressions: ITS Impressions Brain MRI 09/19/23 20:33 IMPRESSION: 1. No demonstrated acute intracranial abnormalities. 2. Chronic mild to moderate nonspecific white matter changes, most notably in the deep white matter of the right frontal lobe. Mild to moderate generalized cerebral volume loss. Medications Medications Current Medications Acetaminophen (Acetaminophen 325 Mg Tablet) 650 mg PO Q6H PRN PRN Reason: Headache/Pain Mild Scale (1-3) Last Admin: 01/01/24 08:45 Dose: 650 mg Al Hydroxide/Mg Hydroxide (Magnesium Hydrox/Alum Hydrox 30 Ml Oral.Susp) 30 ml PO Q6H PRN PRN Reason: Heartburn/Nausea Last Admin: 11/27/23 10:48 Dose: 30 ml Aripiprazole (Aripiprazole Er 300 Mg Suser.Syr) 300 mg IM Q28D@0900 [facility] Last Admin: 01/08/24 09:00 Dose: 300 mg Benzocaine (Throat Lozenge, Medicated Lozenge) 1 lozenge MUCOUS MEM Q2H PRN PRN Reason: Sore Throat Last Admin: 12/30/23 20:59 Dose: 1 lozenge Benztropine Mesylate (Benztropine Mesylate 0.5 Mg Tablet) 0.5 mg PO TID PRN PRN Reason: Extrapyramidal Effects Glucose (Glucose Gel 15 Gm Gel..Gram.) 15 gm PO Q15M PRN; Protocol PRN Reason: per Hypoglycemia Standing Ord. Guaifenesin/Dextromethorphan (Guaifenesin Dm 100/10/5 Ml 5 Ml Syrup) 5 ml PO Q4H PRN PRN Reason: Cough Last Admin: 01/06/24 22:48 Dose: 5 ml Hydroxyzine HCl (Hydroxyzine Hcl 25 Mg Tablet) 25 mg PO Q6H PRN PRN Reason: Anxiety Last Admin: 01/17/24 20:13 Dose: 25 mg Dextrose (D10) 250 mls @ 750 mls/hr IV Q15M PRN; Protocol PRN Reason: per Hypoglycemia Standing Ord. Insulin Glargine (Insulin Glargine,Hum.Rec.Anlog 100 Unit/Ml 10 Ml Vial) 20 unit SUBCUT BEDTIME [facility] Last Admin: 01/17/24 20:15 Dose: 20 unit Lamotrigine (Lamotrigine 100 Mg Tablet) 150 mg PO BEDTIME [facility] Last Admin: 01/17/24 20:13 Dose: 150 mg Levothyroxine Sodium (Levothyroxine Sodium 150 Mcg Tablet) 150 mcg PO DAILY@0800 [facility] Last Admin: 01/18/24 09:27 Dose: 150 mcg Magnesium Hydroxide (Milk Of Magnesia 30 Ml Oral.Susp) 30 ml PO DAILY PRN PRN Reason: Constipation Memantine (Memantine Hcl 5 Mg Tablet) 5 mg PO BID [facility] Last Admin: 01/18/24 09:27 Dose: 5 mg Metformin HCl (Metformin Hcl Er 500 Mg Tab.Er.24h) 1,000 mg PO DAILY@1700 [facility] Last Admin: 01/17/24 16:30 Dose: 1,000 mg Ondansetron HCl (Ondansetron Odt 8 Mg Tab.Rapdis) 8 mg TRANSLINGU Q8H PRN PRN Reason: Nausea and Vomiting Last Admin: 12/31/23 08:39 Dose: 8 mg Sertraline HCl (Sertraline Hcl 100 Mg Tablet) 100 mg PO DAILY [facility] Last Admin: 01/18/24 09:27 Dose: 100 mg Simethicone (Simethicone 80 Mg Tab.Chew) 80 mg PO QIDWMHS PRN PRN Reason: Gas Trazodone HCl (Trazodone Hcl 50 Mg Tablet) 50 mg PO BEDTIME MRX1 PRN PRN Reason: Insomnia Last Admin: 01/17/24 20:13 Dose: 50 mg Allergies Allergies Allergy/AdvReac Type Severity Reaction Status Date / Time amoxicillin [AMOXICILLIN] Allergy Mild VOMITING/ABD Verified 09/10/23 19:44 PAIN Assessment & Plan Assessment & Plan (1) Schizoaffective disorder: Status: Acute Code(s): F25.9 - Schizoaffective disorder, unspecified (2) Hypothyroidism: Status: Acute Code(s): E03.9 - Hypothyroidism, unspecified (3) Type 2 diabetes mellitus: Status: Acute Code(s): E11.9 - Type 2 diabetes mellitus without complications (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 Plan: CV 15 minute safety checks Continue home medications: Haldol 10mg PO daily Synthroid 200mcg PO daily Obtain labs; A1C/POCs Obtain collateral from sister Obtain records from last hospitalization. MOCA Referral for [facility]H services if patient is agreeable. encourage medication compliance;consider VARGAS discharge planning 09/11: Elevated fasting blood sugar elevated hemoglobin A1c 9.2 med consult placed put in point of care needed will start metformin Would benefit from clarity over recent hospitalization what this were done details regarding treatment continue Haldol unclear if patient has Healthcare proxy his [place] was low slowed cognition with poor details in depth at times during blankly regarding making judgments Unclear if any of this relates to past coma or 2 hypothyroidism. He does seem more impaired than when last seen unclear when last imaging was. Continue Haldol sitter neuro indira involvement regarding diagnostic picture. Patient does remain paranoid blunted suspicious apathetic. He might benefit from longer- term placement if available and appropriate at a later time involved DMH involvement would be quite helpful 09/12: cont haldol get records ? hcp ? start antidep unclear hx 09/13: Keeping to self. More talkative today. Pt concerned he will be transferred to [facility]. Pt stated, The paper I signed yesterday. Are you going to send me back to the last hospital? That place was horrible . Pt was educated he signed a release of information with Dr. Gonzalez to obtain records from [facility]. Pt was given a copy of the release he signed. Despite this, pt continues to be anxious about being transferred. Pt denies SI/HI/VH/AH. 09/14: Keeping to self. active on unit. showered. Pt reports feeling alright today; pt reports he is worried about where I'm going to go . Pt continues concerned he will be transferred to [facility]. Pt denies SI/HI/VH/AH. 09/15:Pt reports feeling alright today; pt continues to report he is worried about where I'm going to go . Responding with brief responses. Guarded. Observed standing in one place for a long period of time. Appears confused. Pt denies SI/HI/VH/AH. T/W spoke to patient's sister, Ros, with patients verbal consent. Ros reports concerns regarding patients ability to make decisions regarding his mental and physical health. She plans on contacting legal advice on obtaining guardianship of patient. 09/16:Patient's presents similar to yesterday's presentation. Responding with brief responses. Guarded. Observed standing in one place for a long period of time, when asked what he is doing, pt stated, I don't know . Pt reports he plans on contacting his sister today and try to convince her for me to stay there . Pt denies SI/HI/VH/AH. Continue current tx plan. 09/17: brief responses. Guarded. 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 Pt denies SI/HI/VH/AH. T/W and Dr. Gonzalez spoke to patient's sister, Ros. Ros stated being [facility] HCP and plans on finding document. She plans on coming to the hospital on Saturday to be present for [facility] intake. 09/21: No changes 09/22:Patient flat apathetic difficult insight and judgment his sister is healthcare proxy if needed patient is accepting medical treatment Referral to [facility] 09/23:Considers starting Haldol Decanoate patient is agreeable superficially difficulty with exec fx was seen [facility] 09/24:Pt seen in f/u mood flat dysphoric difficulty engaging in conversation preoccupied with thought he wont be living with family thing slowed apathetic no clear response with namenda ? some improvement inc lamictal start low dose sertraline inc lamictal ck tsh 09/25:Start Abilify as augmentation with Haldol see if can be more stimulating regarding depressed mood apathetic limited engagement sertraline 50 mg Lamictal 25 b.i.d. referral to [facility] which would have structure unclear if patient can engage with this he remains quite depressed has delusional beliefs regarding housing and that things have been done he has repeatedly tried to reach out to his sister denies active SI needs much help dressing talking with others encouragement to eat severe thought blocking Abilify might be more stimulating than Haldol which can be more dulling 09/26:Abilify started sertraline Lamictal encouraged step-down to [facility] encourage reality orientation denies active SI 09/27: Continue current regimen and plans 09/28: Continue current regimen and plans. 09/29: Referral to [facility] increase Abilify to 5 mg daily eventually try and taper Haldol sertraline 50 mg daily 09/30:Increase Abilify to 10 mg lower Haldol to 7 mg continue sertraline and Lamictal 10/01:Abilify increased to 10 mg continue to taper Haldol sertraline 100 mg Lamictal increased to 75 mg patient apathetic withdrawn difficulty with placement some paranoia continues difficulty with decision making at times. Not physically aggressive internally preoccupied seems somewhat improved with Abilify sertraline Continue discharge planning 10/02:Patient somewhat blunted flat slowed thinking during the day times staring. Change Abilify to 10 mg at bedtime. Scheduled Haldol will lowered to 2.5 mg Continue sertraline 100 mg Namenda 5 b.i.d. 10/03:Haldol discontinued modafinil low-dose monitor for psychosis or agitation continue discharge planning 10/06: May need to firm healthcare proxy calls have been placed to sister to try to help in discharge planning. Referrals made. Patient cooperative with care 10/07:Pharmacy ordering Abilify maintain a increase modafinil 100 mg patient remains flat passive depressed some improvement noted no current paranoia noted continue discharge planning no current safe discharge plan 10/08: Increase Lamictal 100 mg Abilify Maintena 400 mg hold modafinil unclear if was overly stimulating patient continues to present internally preoccupied. 10/09:Healthcare proxy invoked discharge planning continue Lamictal Abilify pending maintain a 10/10:Healthcare proxy invoked new CV signed discharge planning. 10/11 keep same treatment 10/12 keep same treatment 10/13: Continue plan of care Lamictal Abilify discharge planning sertraline 10/14: stable. continue current mgmt. 10/15: stable. continue current mgmt. 10/16: stable presentation. continue current mgmt. 10/17: as for yesterday. 10/18: no changes. 10/19: stabel, safe. no change. 10/20: no change in presentation. calm, cooperative. active on unit, social with select peers, attending groups. Pt reports feeling alright . denies SI/HI/VH/AH. Social work waiting to hear from possible placement location. Continue current tx plan. 10/21: continue current tx plan. awaiting placement. 10/22: calm, cooperative. active on unit, social with select peers, attending groups. Pt reports feeling good ; pt stated, I'm waiting to see where I'm going . denies SI/HI/VH/AH. Showered with encouragement. 10/23: continue current tx plan. 10/24: calm, cooperative. active on unit, social with select peers, attending groups. Pt reports feeling good ; pt stated, I just want a place to live . 10/25- likely at baseline for him- CTP 10/26 CTP likely needs placement 10/27: continue current tx plan. awaiting placement. 10/28: Similar to yesterday. No change in presentation. 10/29: Pt reports feeling good ;pt stated, just waiting for a place to live . denies any issues at this time. 10/30: calm, cooperative. active on unit, social with select peers, attending groups. Pt reports feeling worried about where I am going to live . denies any issues at this time. 10/21: no change in presentation. continue current tx plan. 11/01: continue current management and treatment plan. 11/02: Continue current management and treatment plan. 11/03: Continue current management and treatment plan. 11/04: Active on unit. calm, cooperative. social with select peers, attending groups. denies any issues at this time. He reports sleeping well. Pt reports he would be interested in applying for [facility] services; social work aware. 11/05: Active on unit. calm, cooperative. social with select peers, attending groups. denies any issues at this time. Pt reports feeling okay ; he reports anxiety regarding placement. Continue current tx plan. 11/07/23 [facility] referral has appropriate concerns re living stuation cont abilify lamictal 11/08/23 Pt cooperative with care d/c planning working with cont d/c planning cont lamictal abilify 11/12/23 Patient increasingly despairing aware of no clear discharge plan periods needs cuing for much functioning limited social engaged needs help regarding diabetes and medication compliance reportedly had been rejected by multiple rest homes patient not threatening intermittently hopeless helpless very limited family contact at this time 11/13/23 pt flat depressed hopeless helpless unable to fx without structure 11/15 continue tx. 11/16 continue tx. 11/18/2023 Continue plan of care referral to [facility] TSH low will decrease levothyroxine 11/19/23 Pt flat dysphor ic inc hopeless helpless lamictal 150 hs dec levothyroxine 150 d/c planning cont 11/20/23 lamictal inc d/c planning dmh referral 12/02/2023 Continue Lamictal Abilify patient cooperative with care gets despairing at times regarding lack of family support problematic discharge planning in relationship to finding suitable structured place to live 12/02: Social with peers. Per nursing, pt did not sleep last night. Pt reports he did not sleeping because he wasn't tired but feel okay ; ordered Ativan 1mg PO bedtime for tonight, pt aware. 12/03: In bed sleeping, pt reports he is catching up on sleep from the night before. Calm, cooperative. T/W and outside maintenance worker, Billie, with pt to discuss possibly going to the [facility]. Pt reports he would like to call his sister and speak to her before deciding. DC Ativan. 12/04: Active on unit, social with peers. attending groups. T/W and outside maintenance worker, Billie, met with pt to discuss discharge plan. Pt reports he doesn't know if he would want to go to a homeless long term; he states he would rather live on the street because I've done it before . Pt encouraged to consider benefits of going to a long term with the winter months coming; he agreed to doing phone intake with social problems specialist on Saturday with [facility]. 12/05: Pt presents similar to yesterday. Continues to perseverate about [facility] being a long term and not a program; He continues to agree to do phone intake on Saturday. Discussed VARGAS, pt reports he want time to consider d/t not liking needles . 12/08: Pt had phone interview with [facility], however, after multiple attempts at calling them, no one at [facility] picked up the phone to conduct interview. outside maintenance worker to get into contact with them again. Pt denies any issues at this time. 12/09: Active on unit, social with peers. Pt denies any issues at this time. Patient agreed to receiving Abilify Maintena; risks/benefits reviewed. Waiting on placement. 12/10: Patient received Abilify Maintena yesterday. He denies any side effects. Pleasant. Waiting on placement. 12/11: continue current tx plan. 12/12: similar to days prior. waiting on placement. continue current tx plan. 12/13: appearing more depressed or demoralized. notes lots of people come and go. continue current mgmt. 12/14: same as for yesterday: find me a place to live? continue current mgmt. 12/15: out and about more. otherwise stable. continue current mgmt. 12/16: continue current tx plan. 12/17: continue current tx plan. 12/18: awaiting placement. denies any issues. 12/19: Pt reports feeling alright ; Social work continues to work on placement. Pt denies any issues at this time. Pt reports sleeping well. 12/20: Continue plan of care 12/21: Continue plan of care 12/22: continue current tx plan. 12/23: continue tx plan. 12/24: continue tx plan. 12/25: similar to days prior. waiting on placement. 12/26: Continue current tx plan. 12/27: Continue current management and treatment plan. 12/28: Continue current management and treatment plan. 12/29: In bed, tested positive for Covid. Vomited x1 per nursing. Pt reports feeling okay ; sleeping most of shift. Continue current tx plan. 12/30: Pt reports feeling okay ; continues on isolation d/t being Covid positive. Utilizing IPad. Pt reports sleeping well. denies SI/HI/VH/AH. Has not vomited today. 12/31: Pt reports feeling alright ; pt stated, I still have a stuffy nose, cough and headache but I'm starting to feel better . continues on isolation. denies other issues at this time. Continue current tx plan. 01/01: pt reports covid symptoms are improving. continues waiting on placement. 01/02: Continue tx plan. 01/05/24: no changes. 01/05: Active on unit. Pt reports feeling okay today; denies any issues at this time. pt had meeting with [facility] to be placed on list for temporary placement; pt declined. Dr. Gonzalez to speak to patient regarding this. 01/06: Discussed placement; pt reports he is thinking about saying yes to the motel . pt reports he does not believe his sister or social problems specialist that he has money saved in the bank. Pt believes if he left to go to the motel he would be stuck there with no money . Social work to discuss with pt. 01/07: Active on unit. social with peers. denies any issues. Pt reports feeling okay ; reports he is still thinking about where he will go after discharge. 01/08: waiting on placement. continue current tx plan. 01/09: Patient continues to wait on placement. 119: Continue current management and treatment plan. 03/13: Continue current management and treatment plan. 01/12: waiting on placement. 01/13: continue current tx plan. 01/17: Continue current regimen and plans for stabilization and medication management Plan 1. Continue with same treatment. 2. Waiting for placement Reason for continued inpatient stay Substantial Risk for: med/psych decompensation Time Spent With Patient Time: Total time managing care of this patient today ____ minutes.
[2024-01-18] MEDS: metFORMIN HCl ER 500 MG TAB.ER.24H 1000 MG PO (16:48)
[2024-01-18 19:58] VITALS: BP 132/73; PULSE 80; RESP 18; TEMP 36.7; O2SAT 97
[2024-01-18] MEDS: lamoTRIgine 100 MG TABLET 150 MG PO (20:51)
[2024-01-18] MEDS: hydrOXYzine HCL 25 MG TABLET PO (20:51)
[2024-01-18] MEDS: traZODone HCL 50 MG TABLET PO (20:51)
[2024-01-18] MEDS: Insulin Glargine,Hum.rec.anlog 100 UNIT/ML 10 ML VIAL 20 UNIT SUBCUT (20:52)
[2024-01-19] MEDS: Levothyroxine Sodium 150 MCG TABLET PO (05:51)
[2024-01-19 06:56] LABS: Glucose, Whole Blood 120 mg/dL (60-115)
[2024-01-19 09:24] VITALS: BP 119/72; PULSE 75; RESP 18; TEMP 36.6; O2SAT 97
[2024-01-19] MEDS: Memantine HCl 5 MG TABLET PO ×2 (09:27→20:24)
[2024-01-19] MEDS: Sertraline HCL 100 MG TABLET PO (09:27)
--- NOTE | 2024-01-19 10:58 | P.PNPSI_ITS ---
Subjective Subjective Date of Service: 01/19/24 Reason For Visit: paranoia cognitive impairment Subjective Notes: Conditional Voluntary Interim History: Patient was seen and discussed in rounds today. Records and plans were reviewed. He is doing a little better and resigned to the fact that he is on the new unit, awaiting placement. He has been helping with 1 other patient on the unit which gives him something to do. No complaints. Eating and sleeping adequately. No SI reported Review of Systems Review of Systems Yes all other systems are reviewed and are negative Mental Status Exam Mental Status Exam Patient Appearance: Well Grooomed and Appropriate Patient Orientation: Person and Situation Level of Consciousness: Awake and Appropriate Patient Behavior: Guarded and Passive Mood Description: Withdrawn Affect Description: Constricted Patient Cognition Impaired: Yes Ability to Follow Directions: Good Speech Pattern: Clear 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: None Delusions: Not Present Thought Process: Distracted and Slowed Thinking Thought Content: positive for [place] and positive for Poverty of Content Judgement: Fair Diagnostics Vital Signs (24Hr): Vital Signs - 24 hr 01/18/24 19:58 01/19/24 09:24 Temperature 98.1 F 98 F Pulse Rate 80 75 Respiratory Rate 18 18 Blood Pressure 132/73 119/72 Pulse Oximetry 97 97 Oxygen Delivery Method Room Air Room Air BMI result Body Mass Index 32.9 Labs 09/10/23 20:00 01/16/24 08:08 Labs: Laboratory Results - last 48 hr 01/17/24 01/17/24 01/17/24 11:22 16:24 19:40 POC Glucose 124 H 164 H 168 H 01/18/24 01/19/24 06:38 06:47 POC Glucose 115 120 H Imaging Radiology Impressions: ITS Impressions Brain MRI 09/19/23 20:33 IMPRESSION: 1. No demonstrated acute intracranial abnormalities. 2. Chronic mild to moderate nonspecific white matter changes, most notably in the deep white matter of the right frontal lobe. Mild to moderate generalized cerebral volume loss. Medications Medications Current Medications Acetaminophen (Acetaminophen 325 Mg Tablet) 650 mg PO Q6H PRN PRN Reason: Headache/Pain Mild Scale (1-3) Last Admin: 01/01/24 08:45 Dose: 650 mg Al Hydroxide/Mg Hydroxide (Magnesium Hydrox/Alum Hydrox 30 Ml Oral.Susp) 30 ml PO Q6H PRN PRN Reason: Heartburn/Nausea Last Admin: 11/27/23 10:48 Dose: 30 ml Aripiprazole (Aripiprazole Er 300 Mg Suser.Syr) 300 mg IM Q28D@0900 [facility] Last Admin: 01/08/24 09:00 Dose: 300 mg Benzocaine (Throat Lozenge, Medicated Lozenge) 1 lozenge MUCOUS MEM Q2H PRN PRN Reason: Sore Throat Last Admin: 12/30/23 20:59 Dose: 1 lozenge Benztropine Mesylate (Benztropine Mesylate 0.5 Mg Tablet) 0.5 mg PO TID PRN PRN Reason: Extrapyramidal Effects Glucose (Glucose Gel 15 Gm Gel..Gram.) 15 gm PO Q15M PRN; Protocol PRN Reason: per Hypoglycemia Standing Ord. Guaifenesin/Dextromethorphan (Guaifenesin Dm 100/10/5 Ml 5 Ml Syrup) 5 ml PO Q4H PRN PRN Reason: Cough Last Admin: 01/06/24 22:48 Dose: 5 ml Hydroxyzine HCl (Hydroxyzine Hcl 25 Mg Tablet) 25 mg PO Q6H PRN PRN Reason: Anxiety Last Admin: 01/18/24 20:51 Dose: 25 mg Dextrose (D10) 250 mls @ 750 mls/hr IV Q15M PRN; Protocol PRN Reason: per Hypoglycemia Standing Ord. Insulin Glargine (Insulin Glargine,Hum.Rec.Anlog 100 Unit/Ml 10 Ml Vial) 20 unit SUBCUT BEDTIME [facility] Last Admin: 01/18/24 20:52 Dose: 20 unit Lamotrigine (Lamotrigine 100 Mg Tablet) 150 mg PO BEDTIME [facility] Last Admin: 01/18/24 20:51 Dose: 150 mg Levothyroxine Sodium (Levothyroxine Sodium 150 Mcg Tablet) 150 mcg PO DAILY@0630 [facility] Last Admin: 01/19/24 05:51 Dose: 150 mcg Magnesium Hydroxide (Milk Of Magnesia 30 Ml Oral.Susp) 30 ml PO DAILY PRN PRN Reason: Constipation Memantine (Memantine Hcl 5 Mg Tablet) 5 mg PO BID [facility] Last Admin: 01/19/24 09:27 Dose: 5 mg Metformin HCl (Metformin Hcl Er 500 Mg Tab.Er.24h) 1,000 mg PO DAILY@1700 [facility] Last Admin: 01/18/24 16:48 Dose: 1,000 mg Ondansetron HCl (Ondansetron Odt 8 Mg Tab.Rapdis) 8 mg TRANSLINGU Q8H PRN PRN Reason: Nausea and Vomiting Last Admin: 12/31/23 08:39 Dose: 8 mg Sertraline HCl (Sertraline Hcl 100 Mg Tablet) 100 mg PO DAILY MANAS Last Admin: 01/19/24 09:27 Dose: 100 mg Simethicone (Simethicone 80 Mg Tab.Chew) 80 mg PO QIDWMHS PRN PRN Reason: Gas Trazodone HCl (Trazodone Hcl 50 Mg Tablet) 50 mg PO BEDTIME MRX1 PRN PRN Reason: Insomnia Last Admin: 01/18/24 20:51 Dose: 50 mg Allergies Allergies Allergy/AdvReac Type Severity Reaction Status Date / Time amoxicillin [AMOXICILLIN] Allergy Mild VOMITING/ABD Verified 09/10/23 19:44 PAIN Assessment & Plan Assessment & Plan (1) Schizoaffective disorder: Status: Acute Code(s): F25.9 - Schizoaffective disorder, unspecified (2) Hypothyroidism: Status: Acute Code(s): E03.9 - Hypothyroidism, unspecified (3) Type 2 diabetes mellitus: Status: Acute Code(s): E11.9 - Type 2 diabetes mellitus without complications (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 Plan: CV 15 minute safety checks Continue home medications: Haldol 10mg PO daily Synthroid 200mcg PO daily Obtain labs; A1C/POCs Obtain collateral from sister Obtain records from last hospitalization. MOCA Referral for DMH services if patient is agreeable. encourage medication compliance;consider VARGAS discharge planning 09/11: Elevated fasting blood sugar elevated hemoglobin A1c 9.2 med consult placed put in point of care needed will start metformin Would benefit from clarity over recent hospitalization what this were done details regarding treatment continue Haldol unclear if patient has Healthcare proxy his [place] was low slowed cognition with poor details in depth at times during blankly regarding making judgments Unclear if any of this relates to past coma or 2 hypothyroidism. He does seem more impaired than when last seen unclear when last imaging was. Continue Haldol sitter neuro indira involvement regarding diagnostic picture. Patient does remain paranoid blunted suspicious apathetic. He might benefit from longer- term placement if available and appropriate at a later time involved [facility] involvement would be quite helpful 09/12: cont haldol get records ? hcp ? start antidep unclear hx 09/13: Keeping to self. More talkative today. Pt concerned he will be transferred to [facility]. Pt stated, The paper I signed yesterday. Are you going to send me back to the last hospital? That place was horrible . Pt was educated he signed a release of information with Dr. Gonzalez to obtain records from [facility]. Pt was given a copy of the release he signed. Despite this, pt continues to be anxious about being transferred. Pt denies SI/HI/VH/AH. 09/14: Keeping to self. active on unit. showered. Pt reports feeling alright today; pt reports he is worried about where I'm going to go . Pt continues concerned he will be transferred to [facility]. Pt denies SI/HI/VH/AH. 09/15:Pt reports feeling alright today; pt continues to report he is worried about where I'm going to go . Responding with brief responses. Guarded. Observed standing in one place for a long period of time. Appears confused. Pt denies SI/HI/VH/AH. T/W spoke to patient's sister, Ros, with patients verbal consent. Ros reports concerns regarding patients ability to make decisions regarding his mental and physical health. She plans on contacting legal advice on obtaining guardianship of patient. 09/16:Patient's presents similar to yesterday's presentation. Responding with brief responses. Guarded. Observed standing in one place for a long period of time, when asked what he is doing, pt stated, I don't know . Pt reports he plans on contacting his sister today and try to convince her for me to stay there . Pt denies SI/HI/VH/AH. Continue current tx plan. 09/17: brief responses. Guarded. Continues to operations examiner one place for a long period of time, when asked what he is doing, pt stated, I don't know . Pt denies SI/HI/VH/AH. T/W and Dr. Gonzalez spoke to patient's sister, Ros. Ros stated being [facility] HCP and plans on finding document. She plans on coming to the hospital on Saturday to be present for [facility] intake. 09/21: No changes 09/22:Patient flat apathetic difficult insight and judgment his sister is healthcare proxy if needed patient is accepting medical treatment Referral to [facility] 09/23:Considers starting Haldol Decanoate patient is agreeable superficially difficulty with exec fx was seen [facility] 09/24:Pt seen in f/u mood flat dysphoric difficulty engaging in conversation preoccupied with thought he wont be living with family thing slowed apathetic no clear response with namenda ? some improvement inc lamictal start low dose sertraline inc lamictal ck tsh 09/25:Start Abilify as augmentation with Haldol see if can be more stimulating regarding depressed mood apathetic limited engagement sertraline 50 mg Lamictal 25 b.i.d. referral to [facility] which would have structure unclear if patient can engage with this he remains quite depressed has delusional beliefs regarding housing and that things have been done he has repeatedly tried to reach out to his sister denies active SI needs much help dressing talking with others encouragement to eat severe thought blocking Abilify might be more stimulating than Haldol which can be more dulling 09/26:Abilify started sertraline Lamictal encouraged step-down to [facility] encourage reality orientation denies active SI 09/27: Continue current regimen and plans 09/28: Continue current regimen and plans. 09/29: Referral to [facility] increase Abilify to 5 mg daily eventually try and taper Haldol sertraline 50 mg daily 09/30:Increase Abilify to 10 mg lower Haldol to 7 mg continue sertraline and Lamictal 10/01:Abilify increased to 10 mg continue to taper Haldol sertraline 100 mg Lamictal increased to 75 mg patient apathetic withdrawn difficulty with placement some paranoia continues difficulty with decision making at times. Not physically aggressive internally preoccupied seems somewhat improved with Abilify sertraline Continue discharge planning 10/02:Patient somewhat blunted flat slowed thinking during the day times staring. Change Abilify to 10 mg at bedtime. Scheduled Haldol will lowered to 2.5 mg Continue sertraline 100 mg Namenda 5 b.i.d. 10/03:Haldol discontinued modafinil low-dose monitor for psychosis or agitation continue discharge planning 10/06: May need to firm healthcare proxy calls have been placed to sister to try to help in discharge planning. Referrals made. Patient cooperative with care 10/07:Pharmacy ordering Abilify maintain a increase modafinil 100 mg patient remains flat passive depressed some improvement noted no current paranoia noted continue discharge planning no current safe discharge plan 10/08: Increase Lamictal 100 mg Abilify Maintena 400 mg hold modafinil unclear if was overly stimulating patient continues to present internally preoccupied. 10/09:Healthcare proxy invoked discharge planning continue Lamictal Abilify pending maintain a 10/10:Healthcare proxy invoked new CV signed discharge planning. 10/11 keep same treatment 10/12 keep same treatment 10/13: Continue plan of care Lamictal Abilify discharge planning sertraline 10/14: stable. continue current mgmt. 10/15: stable. continue current mgmt. 10/16: stable presentation. continue current mgmt. 10/17: as for yesterday. 10/18: no changes. 10/19: stabel, safe. no change. 10/20: no change in presentation. calm, cooperative. active on unit, social with select peers, attending groups. Pt reports feeling alright . denies SI/HI/VH/AH. Social work waiting to hear from possible placement location. Continue current tx plan. 10/21: continue current tx plan. awaiting placement. 10/22: calm, cooperative. active on unit, social with select peers, attending groups. Pt reports feeling good ; pt stated, I'm waiting to see where I'm going . denies SI/HI/VH/AH. Showered with encouragement. 10/23: continue current tx plan. 10/24: calm, cooperative. active on unit, social with select peers, attending groups. Pt reports feeling good ; pt stated, I just want a place to live . 10/25- likely at baseline for him- CTP 10/26 CTP likely needs placement 10/27: continue current tx plan. awaiting placement. 10/28: Similar to yesterday. No change in presentation. 10/29: Pt reports feeling good ;pt stated, just waiting for a place to live . denies any issues at this time. 10/30: calm, cooperative. active on unit, social with select peers, attending groups. Pt reports feeling worried about where I am going to live . denies any issues at this time. 10/21: no change in presentation. continue current tx plan. 11/01: continue current management and treatment plan. 11/02: Continue current management and treatment plan. 11/03: Continue current management and treatment plan. 11/04: Active on unit. calm, cooperative. social with select peers, attending groups. denies any issues at this time. He reports sleeping well. Pt reports he would be interested in applying for [facility] services; social work aware. 11/05: Active on unit. calm, cooperative. social with select peers, attending groups. denies any issues at this time. Pt reports feeling okay ; he reports anxiety regarding placement. Continue current tx plan. 11/07/23 [facility] referral has appropriate concerns re living stuation cont abilify lamictal 11/08/23 Pt cooperative with care d/c planning working with cont d/c planning cont lamictal abilify 11/12/23 Patient increasingly despairing aware of no clear discharge plan periods needs cuing for much functioning limited social engaged needs help regarding diabetes and medication compliance reportedly had been rejected by multiple rest homes patient not threatening intermittently hopeless helpless very limited family contact at this time 11/13/23 pt flat depressed hopeless helpless unable to fx without structure 11/15 continue tx. 11/16 continue tx. 11/18/2023 Continue plan of care referral to [facility] TSH low will decrease levothyroxine 11/19/23 Pt flat dysphor ic inc hopeless helpless lamictal 150 hs dec levothyroxine 150 d/c planning cont 11/20/23 lamictal inc d/c planning dmh referral 12/02/2023 Continue Lamictal Abilify patient cooperative with care gets despairing at times regarding lack of family support problematic discharge planning in relationship to finding suitable structured place to live 12/02: Social with peers. Per nursing, pt did not sleep last night. Pt reports he did not sleeping because he wasn't tired but feel okay ; ordered Ativan 1mg PO bedtime for tonight, pt aware. 12/03: In bed sleeping, pt reports he is catching up on sleep from the night before. Calm, cooperative. T/W and typing office worker, Billie, with pt to discuss possibly going to the [facility]. Pt reports he would like to call his sister and speak to her before deciding. DC Ativan. 12/04: Active on unit, social with peers. attending groups. T/W and typing office worker, Billie, met with pt to discuss discharge plan. Pt reports he doesn't know if he would want to go to a homeless fci; he states he would rather live on the street because I've done it before . Pt encouraged to consider benefits of going to a fci with the winter months coming; he agreed to doing phone intake with social media strategist on Saturday with [facility]. 12/05: Pt presents similar to yesterday. Continues to perseverate about [facility] being a fci and not a program; He continues to agree to do phone intake on Saturday. Discussed VARGAS, pt reports he want time to consider d/t not liking needles . 12/08: Pt had phone interview with [facility], however, after multiple attempts at calling them, no one at [facility] picked up the phone to conduct interview. typing office worker to get into contact with them again. Pt denies any issues at this time. 12/09: Active on unit, social with peers. Pt denies any issues at this time. Patient agreed to receiving Abilify Maintena; risks/benefits reviewed. Waiting on placement. 12/10: Patient received Abilify Maintena yesterday. He denies any side effects. Pleasant. Waiting on placement. 12/11: continue current tx plan. 12/12: similar to days prior. waiting on placement. continue current tx plan. 12/13: appearing more depressed or demoralized. notes lots of people come and go. continue current mgmt. 12/14: same as for yesterday: find me a place to live? continue current mgmt. 12/15: out and about more. otherwise stable. continue current mgmt. 12/16: continue current tx plan. 12/17: continue current tx plan. 12/18: awaiting placement. denies any issues. 12/19: Pt reports feeling alright ; Social work continues to work on placement. Pt denies any issues at this time. Pt reports sleeping well. 12/20: Continue plan of care 12/21: Continue plan of care 12/22: continue current tx plan. 12/23: continue tx plan. 12/24: continue tx plan. 12/25: similar to days prior. waiting on placement. 12/26: Continue current tx plan. 12/27: Continue current management and treatment plan. 12/28: Continue current management and treatment plan. 12/29: In bed, tested positive for Covid. Vomited x1 per nursing. Pt reports feeling okay ; sleeping most of shift. Continue current tx plan. 12/30: Pt reports feeling okay ; continues on isolation d/t being Covid positive. Utilizing IPad. Pt reports sleeping well. denies SI/HI/VH/AH. Has not vomited today. 12/31: Pt reports feeling alright ; pt stated, I still have a stuffy nose, cough and headache but I'm starting to feel better . continues on isolation. denies other issues at this time. Continue current tx plan. 01/01: pt reports covid symptoms are improving. continues waiting on placement. 01/02: Continue tx plan. 01/05/24: no changes. 01/05: Active on unit. Pt reports feeling okay today; denies any issues at this time. pt had meeting with [facility] to be placed on list for temporary placement; pt declined. Dr. Gonzalez to speak to patient regarding this. 01/06: Discussed placement; pt reports he is thinking about saying yes to the motel . pt reports he does not believe his sister or social media strategist that he has money saved in the bank. Pt believes if he left to go to the motel he would be stuck there with no money . Social work to discuss with pt. 01/07: Active on unit. social with peers. denies any issues. Pt reports feeling okay ; reports he is still thinking about where he will go after discharge. 01/08: waiting on placement. continue current tx plan. 01/09: Patient continues to wait on placement. 119: Continue current management and treatment plan. 03/13: Continue current management and treatment plan. 01/12: waiting on placement. 01/13: continue current tx plan. 01/17: Continue current regimen and plans for stabilization and medication management 01/18: Continue current regimen and plans for stabilization and medication management and placement Plan 1. Continue with same treatment. 2. Waiting for placement Reason for continued inpatient stay Substantial Risk for: med/psych decompensation Time Spent With Patient Time: Total time managing care of this patient today ____ minutes.
[2024-01-19] MEDS: metFORMIN HCl ER 500 MG TAB.ER.24H 1000 MG PO (17:05)
[2024-01-19 20:00] VITALS: BP 119/75; PULSE 80; RESP 18; TEMP 37.1; O2SAT 94
[2024-01-19] MEDS: Insulin Glargine,Hum.rec.anlog 100 UNIT/ML 10 ML VIAL 20 UNIT SUBCUT (20:24)
[2024-01-19] MEDS: hydrOXYzine HCL 25 MG TABLET PO (20:24)
[2024-01-19] MEDS: traZODone HCL 50 MG TABLET PO (20:24)
[2024-01-19] MEDS: lamoTRIgine 100 MG TABLET 150 MG PO (20:24)
[2024-01-20] MEDS: Levothyroxine Sodium 150 MCG TABLET PO (06:39)
[2024-01-20 06:45] LABS: Glucose, Whole Blood 115 mg/dL (60-115)
[2024-01-20 08:00] VITALS: BP 138/71; PULSE 81; RESP 18; TEMP 36.6; O2SAT 96
[2024-01-20] MEDS: Memantine HCl 5 MG TABLET PO ×2 (08:43→20:51)
[2024-01-20] MEDS: Sertraline HCL 100 MG TABLET PO (08:43)
--- NOTE | 2024-01-20 13:13 | P.PNPSI_ITS ---
Subjective Subjective Date of Service: 01/20/24 Reason For Visit: paranoia cognitive impairment Subjective Notes: Conditional Voluntary Interim History: Nursing staff reported the patient had been pleasant, social with peers. The social security benefits interviewer reported that the residential program will come tomorrow to assess him. His [facility] application still pending. We will need to invoke the healthcare proxy and affirming court to assure transfer. On interview the patient denies new symptoms, waiting on placement. Mental Status Exam Mental Status Exam Patient Appearance: Appropriate Patient Orientation: Person and Situation Level of Consciousness: Awake and Appropriate Patient Behavior: Guarded and Passive Mood Description: Withdrawn Affect Description: Constricted Patient Cognition Impaired: Yes Ability to Follow Directions: Good Speech Pattern: Clear 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: None Delusions: Not Present Thought Process: Distracted and Slowed Thinking Thought Content: positive for [place] and positive for Poverty of Content Judgement: Fair Diagnostics Vital Signs (24Hr): Vital Signs - 24 hr 01/19/24 20:00 01/20/24 08:00 Temperature 98.8 F 97.8 F Pulse Rate 80 81 Respiratory Rate 18 18 Blood Pressure 119/75 138/71 Pulse Oximetry 94 96 Oxygen Delivery Method Room Air Room Air BMI result Body Mass Index 32.9 Labs 09/10/23 20:00 01/16/24 08:08 Labs: Laboratory Results - last 48 hr 01/19/24 01/20/24 06:47 06:41 POC Glucose 120 H 115 Imaging Radiology Impressions: ITS Impressions Brain MRI 09/19/23 20:33 IMPRESSION: 1. No demonstrated acute intracranial abnormalities. 2. Chronic mild to moderate nonspecific white matter changes, most notably in the deep white matter of the right frontal lobe. Mild to moderate generalized cerebral volume loss. Medications Medications Current Medications Acetaminophen (Acetaminophen 325 Mg Tablet) 650 mg PO Q6H PRN PRN Reason: Headache/Pain Mild Scale (1-3) Last Admin: 01/01/24 08:45 Dose: 650 mg Al Hydroxide/Mg Hydroxide (Magnesium Hydrox/Alum Hydrox 30 Ml Oral.Susp) 30 ml PO Q6H PRN PRN Reason: Heartburn/Nausea Last Admin: 11/27/23 10:48 Dose: 30 ml Aripiprazole (Aripiprazole Er 300 Mg Suser.Syr) 300 mg IM Q28D@0900 MANAS Last Admin: 01/08/24 09:00 Dose: 300 mg Benzocaine (Throat Lozenge, Medicated Lozenge) 1 lozenge MUCOUS MEM Q2H PRN PRN Reason: Sore Throat Last Admin: 12/30/23 20:59 Dose: 1 lozenge Benztropine Mesylate (Benztropine Mesylate 0.5 Mg Tablet) 0.5 mg PO TID PRN PRN Reason: Extrapyramidal Effects Glucose (Glucose Gel 15 Gm Gel..Gram.) 15 gm PO Q15M PRN; Protocol PRN Reason: per Hypoglycemia Standing Ord. Guaifenesin/Dextromethorphan (Guaifenesin Dm 100/10/5 Ml 5 Ml Syrup) 5 ml PO Q4H PRN PRN Reason: Cough Last Admin: 01/06/24 22:48 Dose: 5 ml Hydroxyzine HCl (Hydroxyzine Hcl 25 Mg Tablet) 25 mg PO Q6H PRN PRN Reason: Anxiety Last Admin: 01/19/24 20:24 Dose: 25 mg Dextrose (D10) 250 mls @ 750 mls/hr IV Q15M PRN; Protocol PRN Reason: per Hypoglycemia Standing Ord. Insulin Glargine (Insulin Glargine,Hum.Rec.Anlog 100 Unit/Ml 10 Ml Vial) 20 unit SUBCUT BEDTIME [facility] Last Admin: 01/19/24 20:24 Dose: 20 unit Lamotrigine (Lamotrigine 100 Mg Tablet) 150 mg PO BEDTIME [facility] Last Admin: 01/19/24 20:24 Dose: 150 mg Levothyroxine Sodium (Levothyroxine Sodium 150 Mcg Tablet) 150 mcg PO DAILY@0630 [facility] Last Admin: 01/20/24 06:39 Dose: 150 mcg Magnesium Hydroxide (Milk Of Magnesia 30 Ml Oral.Susp) 30 ml PO DAILY PRN PRN Reason: Constipation Memantine (Memantine Hcl 5 Mg Tablet) 5 mg PO BID [facility] Last Admin: 01/20/24 08:43 Dose: 5 mg Metformin HCl (Metformin Hcl Er 500 Mg Tab.Er.24h) 1,000 mg PO DAILY@1700 [facility] Last Admin: 01/19/24 17:05 Dose: 1,000 mg Ondansetron HCl (Ondansetron Odt 8 Mg Tab.Rapdis) 8 mg TRANSLINGU Q8H PRN PRN Reason: Nausea and Vomiting Last Admin: 10/29/24 08:39 Dose: 8 mg Sertraline HCl (Sertraline Hcl 100 Mg Tablet) 100 mg PO DAILY MANAS Last Admin: 01/20/24 08:43 Dose: 100 mg Simethicone (Simethicone 80 Mg Tab.Chew) 80 mg PO QIDWMHS PRN PRN Reason: Gas Trazodone HCl (Trazodone Hcl 50 Mg Tablet) 50 mg PO BEDTIME MRX1 PRN PRN Reason: Insomnia Last Admin: 01/19/24 20:24 Dose: 50 mg Allergies Allergies Allergy/AdvReac Type Severity Reaction Status Date / Time amoxicillin [AMOXICILLIN] Allergy Mild VOMITING/ABD Verified 09/10/23 19:44 PAIN Assessment & Plan Assessment & Plan (1) Schizoaffective disorder: Status: Acute Code(s): F25.9 - Schizoaffective disorder, unspecified (2) Hypothyroidism: Status: Acute Code(s): E03.9 - Hypothyroidism, unspecified (3) Type 2 diabetes mellitus: Status: Acute Code(s): E11.9 - Type 2 diabetes mellitus without complications (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 Plan: CV 15 minute safety checks Continue home medications: Haldol 10mg PO daily Synthroid 200mcg PO daily Obtain labs; A1C/POCs Obtain collateral from sister Obtain records from last hospitalization. MOCA Referral for [facility] services if patient is agreeable. encourage medication compliance;consider VARGAS discharge planning 09/11: Elevated fasting blood sugar elevated hemoglobin A1c 9.2 med consult placed put in point of care needed will start metformin Would benefit from clarity over recent hospitalization what this were done details regarding treatment continue Haldol unclear if patient has Healthcare proxy his [place] was low slowed cognition with poor details in depth at times during blankly regarding making judgments Unclear if any of this relates to past coma or 2 hypothyroidism. He does seem more impaired than when last seen unclear when last imaging was. Continue Haldol [facility] involvement regarding diagnostic picture. Patient does remain paranoid blunted suspicious apathetic. He might benefit from longer- term placement if available and appropriate at a later time involved [facility] involvement would be quite helpful 09/12: cont haldol get records ? hcp ? start antidep unclear hx 09/13: Keeping to self. More talkative today. Pt concerned he will be transferred to [facility]. Pt stated, The paper I signed yesterday. Are you going to send me back to the last hospital? That place was horrible . Pt was educated he signed a release of information with Dr. Gonzalez to obtain records from [facility]. Pt was given a copy of the release he signed. Despite this, pt continues to be anxious about being transferred. Pt denies SI/HI/VH/AH. 09/14: Keeping to self. active on unit. showered. Pt reports feeling alright today; pt reports he is worried about where I'm going to go . Pt continues concerned he will be transferred to [facility]. Pt denies SI/HI/VH/AH. 09/15:Pt reports feeling alright today; pt continues to report he is worried about where I'm going to go . Responding with brief responses. Guarded. Observed standing in one place for a long period of time. Appears confused. Pt denies SI/HI/VH/AH. T/W spoke to patient's sister, Ros, with patients verbal consent. Ros reports concerns regarding patients ability to make decisions regarding his mental and physical health. She plans on contacting legal advice on obtaining guardianship of patient. 09/16:Patient's presents similar to yesterday's presentation. Responding with brief responses. Guarded. Observed standing in one place for a long period of time, when asked what he is doing, pt stated, I don't know . Pt reports he plans on contacting his sister today and try to convince her for me to stay there . Pt denies SI/HI/VH/AH. Continue current tx plan. 09/17: brief responses. Guarded. 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 Pt denies SI/HI/VH/AH. T/W and Dr. Gonzalez spoke to patient's sister, Ros. Ros stated being [facility] HCP and plans on finding document. She plans on coming to the hospital on Saturday to be present for [facility] intake. 09/21: No changes 09/22:Patient flat apathetic difficult insight and judgment his sister is healthcare proxy if needed patient is accepting medical treatment Referral to [facility] 09/23:Considers starting Haldol Decanoate patient is agreeable superficially difficulty with exec fx was seen [facility] 09/24:Pt seen in f/u mood flat dysphoric difficulty engaging in conversation preoccupied with thought he wont be living with family thing slowed apathetic no clear response with namenda ? some improvement inc lamictal start low dose sertraline inc lamictal ck tsh 09/25:Start Abilify as augmentation with Haldol see if can be more stimulating regarding depressed mood apathetic limited engagement sertraline 50 mg Lamictal 25 b.i.d. referral to [facility] which would have structure unclear if patient can engage with this he remains quite depressed has delusional beliefs regarding housing and that things have been done he has repeatedly tried to reach out to his sister denies active SI needs much help dressing talking with others encouragement to eat severe thought blocking Abilify might be more stimulating than Haldol which can be more dulling 09/26:Abilify started sertraline Lamictal encouraged step-down to [facility] encourage reality orientation denies active SI 09/27: Continue current regimen and plans 09/28: Continue current regimen and plans. 09/29: Referral to [facility] increase Abilify to 5 mg daily eventually try and taper Haldol sertraline 50 mg daily 09/30:Increase Abilify to 10 mg lower Haldol to 7 mg continue sertraline and Lamictal 10/01:Abilify increased to 10 mg continue to taper Haldol sertraline 100 mg Lamictal increased to 75 mg patient apathetic withdrawn difficulty with placement some paranoia continues difficulty with decision making at times. Not physically aggressive internally preoccupied seems somewhat improved with Abilify sertraline Continue discharge planning 10/02:Patient somewhat blunted flat slowed thinking during the day times staring. Change Abilify to 10 mg at bedtime. Scheduled Haldol will lowered to 2.5 mg Continue sertraline 100 mg Namenda 5 b.i.d. 10/03:Haldol discontinued modafinil low-dose monitor for psychosis or agitation continue discharge planning 10/06: May need to firm healthcare proxy calls have been placed to sister to try to help in discharge planning. Referrals made. Patient cooperative with care 10/07:Pharmacy ordering Abilify maintain a increase modafinil 100 mg patient remains flat passive depressed some improvement noted no current paranoia noted continue discharge planning no current safe discharge plan 10/08: Increase Lamictal 100 mg Abilify Maintena 400 mg hold modafinil unclear if was overly stimulating patient continues to present internally preoccupied. 10/09:Healthcare proxy invoked discharge planning continue Lamictal Abilify pending maintain a 10/10:Healthcare proxy invoked new CV signed discharge planning. 10/11 keep same treatment 10/12 keep same treatment 10/13: Continue plan of care Lamictal Abilify discharge planning sertraline 10/14: stable. continue current mgmt. 10/15: stable. continue current mgmt. 10/16: stable presentation. continue current mgmt. 10/17: as for yesterday. 10/18: no changes. 10/19: stabel, safe. no change. 10/20: no change in presentation. calm, cooperative. active on unit, social with select peers, attending groups. Pt reports feeling alright . denies SI/HI/VH/AH. Social work waiting to hear from possible placement location. Continue current tx plan. 10/21: continue current tx plan. awaiting placement. 10/22: calm, cooperative. active on unit, social with select peers, attending groups. Pt reports feeling good ; pt stated, I'm waiting to see where I'm going . denies SI/HI/VH/AH. Showered with encouragement. 10/23: continue current tx plan. 10/24: calm, cooperative. active on unit, social with select peers, attending groups. Pt reports feeling good ; pt stated, I just want a place to live . 10/25- likely at baseline for him- CTP 10/26 CTP likely needs placement 10/27: continue current tx plan. awaiting placement. 10/28: Similar to yesterday. No change in presentation. 10/29: Pt reports feeling good ;pt stated, just waiting for a place to live . denies any issues at this time. 10/30: calm, cooperative. active on unit, social with select peers, attending groups. Pt reports feeling worried about where I am going to live . denies any issues at this time. 10/21: no change in presentation. continue current tx plan. 11/01: continue current management and treatment plan. 11/02: Continue current management and treatment plan. 11/03: Continue current management and treatment plan. 11/04: Active on unit. calm, cooperative. social with select peers, attending groups. denies any issues at this time. He reports sleeping well. Pt reports he would be interested in applying for [facility] services; social work aware. 11/05: Active on unit. calm, cooperative. social with select peers, attending groups. denies any issues at this time. Pt reports feeling okay ; he reports anxiety regarding placement. Continue current tx plan. 11/07/23 [facility] referral has appropriate concerns re living stuation cont abilify lamictal 11/08/23 Pt cooperative with care d/c planning working with cont d/c planning cont lamictal abilify 11/12/23 Patient increasingly despairing aware of no clear discharge plan periods needs cuing for much functioning limited social engaged needs help regarding diabetes and medication compliance reportedly had been rejected by multiple rest homes patient not threatening intermittently hopeless helpless very limited family contact at this time 11/13/23 pt flat depressed hopeless helpless unable to fx without structure 11/15 continue tx. 11/16 continue tx. 11/18/2023 Continue plan of care referral to [facility] TSH low will decrease levothyroxine 11/19/23 Pt flat dysphor ic inc hopeless helpless lamictal 150 hs dec levothyroxine 150 d/c planning cont 11/20/23 lamictal inc d/c planning dmh referral 12/02/2023 Continue Lamictal Abilify patient cooperative with care gets despairing at times regarding lack of family support problematic discharge planning in relationship to finding suitable structured place to live 12/02: Social with peers. Per nursing, pt did not sleep last night. Pt reports he did not sleeping because he wasn't tired but feel okay ; ordered Ativan 1mg PO bedtime for tonight, pt aware. 12/03: In bed sleeping, pt reports he is catching up on sleep from the night before. Calm, cooperative. T/W and healthcare social worker, Billie, with pt to discuss possibly going to the [facility]. Pt reports he would like to call his sister and speak to her before deciding. DC Ativan. 12/04: Active on unit, social with peers. attending groups. T/W and healthcare social worker, Billie, met with pt to discuss discharge plan. Pt reports he doesn't know if he would want to go to a homeless nursing home; he states he would rather live on the street because I've done it before . Pt encouraged to consider benefits of going to a nursing home with the winter months coming; he agreed to doing phone intake with social security benefits interviewer on Saturday with [facility]. 12/05: Pt presents similar to yesterday. Continues to perseverate about [facility] being a nursing home and not a program; He continues to agree to do phone intake on Saturday. Discussed VARGAS, pt reports he want time to consider d/t not liking needles . 12/08: Pt had phone interview with [facility], however, after multiple attempts at calling them, no one at [facility] picked up the phone to conduct interview. healthcare social worker to get into contact with them again. Pt denies any issues at this time. 12/09: Active on unit, social with peers. Pt denies any issues at this time. Patient agreed to receiving Abilify Maintena; risks/benefits reviewed. Waiting on placement. 12/10: Patient received Abilify Maintena yesterday. He denies any side effects. Pleasant. Waiting on placement. 12/11: continue current tx plan. 12/12: similar to days prior. waiting on placement. continue current tx plan. 12/13: appearing more depressed or demoralized. notes lots of people come and go. continue current mgmt. 12/14: same as for yesterday: find me a place to live? continue current mgmt. 12/15: out and about more. otherwise stable. continue current mgmt. 12/16: continue current tx plan. 10/16: continue current tx plan. 12/18: awaiting placement. denies any issues. 12/19: Pt reports feeling alright ; Social work continues to work on placement. Pt denies any issues at this time. Pt reports sleeping well. 12/20: Continue plan of care 12/21: Continue plan of care 12/22: continue current tx plan. 12/23: continue tx plan. 12/24: continue tx plan. 12/25: similar to days prior. waiting on placement. 12/26: Continue current tx plan. 12/27: Continue current management and treatment plan. 12/28: Continue current management and treatment plan. 12/29: In bed, tested positive for Covid. Vomited x1 per nursing. Pt reports feeling okay ; sleeping most of shift. Continue current tx plan. 12/30: Pt reports feeling okay ; continues on isolation d/t being Covid positive. Utilizing IPad. Pt reports sleeping well. denies SI/HI/VH/AH. Has not vomited today. 12/31: Pt reports feeling alright ; pt stated, I still have a stuffy nose, cough and headache but I'm starting to feel better . continues on isolation. denies other issues at this time. Continue current tx plan. 01/01: pt reports covid symptoms are improving. continues waiting on placement. 01/02: Continue tx plan. 01/05/24: no changes. 01/05: Active on unit. Pt reports feeling okay today; denies any issues at this time. pt had meeting with [facility] to be placed on list for temporary placement; pt declined. Dr. Gonzalez to speak to patient regarding this. 01/06: Discussed placement; pt reports he is thinking about saying yes to the motel . pt reports he does not believe his sister or social security benefits interviewer that he has money saved in the bank. Pt believes if he left to go to the motel he would be stuck there with no money . Social work to discuss with pt. 01/07: Active on unit. social with peers. denies any issues. Pt reports feeling okay ; reports he is still thinking about where he will go after discharge. 01/08: waiting on placement. continue current tx plan. 01/09: Patient continues to wait on placement. 119: Continue current management and treatment plan. 03/13: Continue current management and treatment plan. 01/12: waiting on placement. 01/13: continue current tx plan. 01/17: Continue current regimen and plans for stabilization and medication management 01/18: Continue current regimen and plans for stabilization and medication management and placement Plan 1. Continue with same treatment. 2. Waiting for placement Reason for continued inpatient stay Substantial Risk for: inability to function, rapid decompensation and med/psych decompensation Time Spent With Patient Time: Total time managing care of this patient today __20__ minutes.
[2024-01-20] MEDS: metFORMIN HCl ER 500 MG TAB.ER.24H 1000 MG PO (16:40)
[2024-01-20 20:35] VITALS: BP 134/83; PULSE 86; RESP 18; TEMP 36.7; O2SAT 96
[2024-01-20 20:44] LABS: Glucose, Whole Blood 129 mg/dL (60-115)
[2024-01-20] MEDS: Insulin Glargine,Hum.rec.anlog 100 UNIT/ML 10 ML VIAL 20 UNIT SUBCUT (20:49)
[2024-01-20] MEDS: lamoTRIgine 100 MG TABLET 150 MG PO (20:51)
[2024-01-21] MEDS: Levothyroxine Sodium 150 MCG TABLET PO (07:01)
[2024-01-21 07:28] LABS: Glucose, Whole Blood 153 mg/dL (60-115)
[2024-01-21] MEDS: Memantine HCl 5 MG TABLET PO ×2 (09:00→20:34)
[2024-01-21] MEDS: Sertraline HCL 100 MG TABLET PO (09:00)
--- NOTE | 2024-01-21 13:09 | HO.PSYCHPN ---
Subjective Subjective Date of Service: 01/21/24 Reason For Visit: paranoia cognitive impairment Subjective Notes: Conditional Voluntary Interim History: The nursing staff reported no changes in his mental status, he was compliant with treatment. On interview the patient denies new symptoms, waiting for placement. Mental Status Exam Mental Status Exam Patient Appearance: Appropriate Patient Orientation: Person and Situation Level of Consciousness: Awake and Appropriate Patient Behavior: Guarded and Passive Mood Description: Withdrawn Affect Description: Constricted Patient Cognition Impaired: Yes Ability to Follow Directions: Good Speech Pattern: Clear 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: None Delusions: Not Present Thought Process: Distracted and Slowed Thinking Thought Content: positive for Toyah and positive for Poverty of Content Judgement: Fair Diagnostics Vital Signs (24Hr): Vital Signs - 24 hr 01/20/24 20:35 Temperature 98.0 F Pulse Rate 86 Respiratory Rate 18 Blood Pressure 134/83 Pulse Oximetry 96 Oxygen Delivery Method Room Air BMI result Body Mass Index 32.9 Labs 09/10/23 20:00 01/16/24 08:08 Labs: Laboratory Results - last 48 hr 01/20/24 01/20/24 01/21/24 06:41 20:33 07:03 POC Glucose 115 129 H 153 H Imaging Radiology Impressions: ITS Impressions Brain MRI 09/19/23 20:33 IMPRESSION: 1. No demonstrated acute intracranial abnormalities. 2. Chronic mild to moderate nonspecific white matter changes, most notably in the deep white matter of the right frontal lobe. Mild to moderate generalized cerebral volume loss. Medications Medications Current Medications Acetaminophen (Acetaminophen 325 Mg Tablet) 650 mg PO Q6H PRN PRN Reason: Headache/Pain Mild Scale (1-3) Last Admin: 01/01/24 08:45 Dose: 650 mg Al Hydroxide/Mg Hydroxide (Magnesium Hydrox/Alum Hydrox 30 Ml Oral.Susp) 30 ml PO Q6H PRN PRN Reason: Heartburn/Nausea Last Admin: 11/27/23 10:48 Dose: 30 ml Aripiprazole (Aripiprazole Er 300 Mg Suser.Syr) 300 mg IM Q28D@0900 MANAS Last Admin: 01/08/24 09:00 Dose: 300 mg Benzocaine (Throat Lozenge, Medicated Lozenge) 1 lozenge MUCOUS MEM Q2H PRN PRN Reason: Sore Throat Last Admin: 12/30/23 20:59 Dose: 1 lozenge Benztropine Mesylate (Benztropine Mesylate 0.5 Mg Tablet) 0.5 mg PO TID PRN PRN Reason: Extrapyramidal Effects Glucose (Glucose Gel 15 Gm Gel..Gram.) 15 gm PO Q15M PRN; Protocol PRN Reason: per Hypoglycemia Standing Ord. Guaifenesin/Dextromethorphan (Guaifenesin Dm 100/10/5 Ml 5 Ml Syrup) 5 ml PO Q4H PRN PRN Reason: Cough Last Admin: 01/06/24 22:48 Dose: 5 ml Hydroxyzine HCl (Hydroxyzine Hcl 25 Mg Tablet) 25 mg PO Q6H PRN PRN Reason: Anxiety Last Admin: 01/19/24 20:24 Dose: 25 mg Dextrose (D10) 250 mls @ 750 mls/hr IV Q15M PRN; Protocol PRN Reason: per Hypoglycemia Standing Ord. Insulin Glargine (Insulin Glargine,Hum.Rec.Anlog 100 Unit/Ml 10 Ml Vial) 20 unit SUBCUT BEDTIME [facility] Last Admin: 01/20/24 20:49 Dose: 20 unit Lamotrigine (Lamotrigine 100 Mg Tablet) 150 mg PO BEDTIME [facility] Last Admin: 01/20/24 20:51 Dose: 150 mg Levothyroxine Sodium (Levothyroxine Sodium 150 Mcg Tablet) 150 mcg PO DAILY@0630 [facility] Last Admin: 01/21/24 07:01 Dose: 150 mcg Magnesium Hydroxide (Milk Of Magnesia 30 Ml Oral.Susp) 30 ml PO DAILY PRN PRN Reason: Constipation Memantine (Memantine Hcl 5 Mg Tablet) 5 mg PO BID [facility] Last Admin: 01/21/24 09:00 Dose: 5 mg Metformin HCl (Metformin Hcl Er 500 Mg Tab.Er.24h) 1,000 mg PO DAILY@1700 [facility] Last Admin: 01/20/24 16:40 Dose: 1,000 mg Ondansetron HCl (Ondansetron Odt 8 Mg Tab.Rapdis) 8 mg TRANSLINGU Q8H PRN PRN Reason: Nausea and Vomiting Last Admin: 12/31/23 08:39 Dose: 8 mg Sertraline HCl (Sertraline Hcl 100 Mg Tablet) 100 mg PO DAILY [facility] Last Admin: 01/21/24 09:00 Dose: 100 mg Simethicone (Simethicone 80 Mg Tab.Chew) 80 mg PO QIDWMHS PRN PRN Reason: Gas Trazodone HCl (Trazodone Hcl 50 Mg Tablet) 50 mg PO BEDTIME MRX1 PRN PRN Reason: Insomnia Last Admin: 01/19/24 20:24 Dose: 50 mg Allergies Allergies Allergy/AdvReac Type Severity Reaction Status Date / Time amoxicillin [AMOXICILLIN] Allergy Mild VOMITING/ABD Verified 09/10/23 19:44 PAIN Assessment & Plan Assessment & Plan (1) Schizoaffective disorder: Status: Acute Code(s): F25.9 - Schizoaffective disorder, unspecified (2) Hypothyroidism: Status: Acute Code(s): E03.9 - Hypothyroidism, unspecified (3) Type 2 diabetes mellitus: Status: Acute Code(s): E11.9 - Type 2 diabetes mellitus without complications (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 Plan: CV 15 minute safety checks Continue home medications: Haldol 10mg PO daily Synthroid 200mcg PO daily Obtain labs; A1C/POCs Obtain collateral from sister Obtain records from last hospitalization. MOCA Referral for DMH services if patient is agreeable. encourage medication compliance;consider V[facility]AS discharge planning 09/11: Elevated fasting blood sugar elevated hemoglobin A1c 9.2 med consult placed put in point of care needed will start metformin Would benefit from clarity over recent hospitalization what this were done details regarding treatment continue Haldol unclear if patient has Healthcare proxy his [place] was low slowed cognition with poor details in depth at times during blankly regarding making judgments Unclear if any of this relates to past coma or 2 hypothyroidism. He does seem more impaired than when last seen unclear when last imaging was. Continue Haldol sitter neuro indira involvement regarding diagnostic picture. Patient does remain paranoid blunted suspicious apathetic. He might benefit from longer-term placement if available and appropriate at a later time involved DMH involvement would be quite helpful 09/12: cont haldol get records ? hcp ? start antidep unclear hx 09/13: Keeping to self. More talkative today. Pt concerned he will be transferred to [facility]. Pt stated, The paper I signed yesterday. Are you going to send me back to the last hospital? That place was horrible . Pt was educated he signed a release of information with Dr. Gonzalez to obtain records from [facility]. Pt was given a copy of the release he signed. Despite this, pt continues to be anxious about being transferred. Pt denies SI/HI/VH/AH. 09/14: Keeping to self. active on unit. showered. Pt reports feeling alright today; pt reports he is worried about where I'm going to go . Pt continues concerned he will be transferred to [facility]. Pt denies SI/HI/VH/AH. 09/15:Pt reports feeling alright today; pt continues to report he is worried about where I'm going to go . Responding with brief responses. Guarded. Observed standing in one place for a long period of time. Appears confused. Pt denies SI/HI/VH/AH. T/W spoke to patient's sister, Ros, with patients verbal consent. Ros reports concerns regarding patients ability to make decisions regarding his mental and physical health. She plans on contacting legal advice on obtaining guardianship of patient. 09/16:Patient's presents similar to yesterday's presentation. Responding with brief responses. Guarded. Observed standing in one place for a long period of time, when asked what he is doing, pt stated, I don't know . Pt reports he plans on contacting his sister today and try to convince her for me to stay there . Pt denies SI/HI/VH/AH. Continue current tx plan. 09/17: brief responses. Guarded. 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 Pt denies SI/HI/VH/AH. T/W and Dr. Gonzalez spoke to patient's sister, Ros. Ros stated being [facility] HCP and plans on finding document. She plans on coming to the hospital on Saturday to be present for [facility] intake. 09/21: No changes 09/22:Patient flat apathetic difficult insight and judgment his sister is healthcare proxy if needed patient is accepting medical treatment Referral to [facility] 09/23:Considers starting Haldol Decanoate patient is agreeable superficially difficulty with exec fx was seen [facility] 09/24:Pt seen in f/u mood flat dysphoric difficulty engaging in conversation preoccupied with thought he wont be living with family thing slowed apathetic no clear response with namenda ? some improvement inc lamictal start low dose sertraline inc lamictal ck tsh 09/25:Start Abilify as augmentation with Haldol see if can be more stimulating regarding depressed mood apathetic limited engagement sertraline 50 mg Lamictal 25 b.i.d. referral to [facility] which would have structure unclear if patient can engage with this he remains quite depressed has delusional beliefs regarding housing and that things have been done he has repeatedly tried to reach out to his sister denies active SI needs much help dressing talking with others encouragement to eat severe thought blocking Abilify might be more stimulating than Haldol which can be more dulling 09/26:Abilify started sertraline Lamictal encouraged step-down to [facility] Salty encourage reality orientation denies active SI 09/27: Continue current regimen and plans 09/28: Continue current regimen and plans. 09/29: Referral to [facility] increase Abilify to 5 mg daily eventually try and taper Haldol sertraline 50 mg daily 09/30:Increase Abilify to 10 mg lower Haldol to 7 mg continue sertraline and Lamictal 10/01:Abilify increased to 10 mg continue to taper Haldol sertraline 100 mg Lamictal increased to 75 mg patient apathetic withdrawn difficulty with placement some paranoia continues difficulty with decision making at times. Not physically aggressive internally preoccupied seems somewhat improved with Abilify sertraline Continue discharge planning 10/02:Patient somewhat blunted flat slowed thinking during the day times staring. Change Abilify to 10 mg at bedtime. Scheduled Haldol will lowered to 2.5 mg Continue sertraline 100 mg Namenda 5 b.i.d. 10/03:Haldol discontinued modafinil low-dose monitor for psychosis or agitation continue discharge planning 10/06: May need to firm healthcare proxy calls have been placed to sister to try to help in discharge planning. Referrals made. Patient cooperative with care 10/07:Pharmacy ordering Abilify maintain a increase modafinil 100 mg patient remains flat passive depressed some improvement noted no current paranoia noted continue discharge planning no current safe discharge plan 10/08: Increase Lamictal 100 mg Abilify Maintena 400 mg hold modafinil unclear if was overly stimulating patient continues to present internally preoccupied. 10/09:Healthcare proxy invoked discharge planning continue Lamictal Abilify pending maintain a 10/10:Healthcare proxy invoked new CV signed discharge planning. 10/11 keep same treatment 10/12 keep same treatment 10/13: Continue plan of care Lamictal Abilify discharge planning sertraline 10/14: stable. continue current mgmt. 10/15: stable. continue current mgmt. 10/16: stable presentation. continue current mgmt. 10/17: as for yesterday. 10/18: no changes. 10/19: stabel, safe. no change. 10/20: no change in presentation. calm, cooperative. active on unit, social with select peers, attending groups. Pt reports feeling alright . denies SI/HI/VH/AH. Social work waiting to hear from possible placement location. Continue current tx plan. 10/21: continue current tx plan. awaiting placement. 10/22: calm, cooperative. active on unit, social with select peers, attending groups. Pt reports feeling good ; pt stated, I'm waiting to see where I'm going . denies SI/HI/VH/AH. Showered with encouragement. 10/23: continue current tx plan. 10/24: calm, cooperative. active on unit, social with select peers, attending groups. Pt reports feeling good ; pt stated, I just want a place to live . 10/25- likely at baseline for him- CTP 10/26 CTP likely needs placement 10/27: continue current tx plan. awaiting placement. 10/28: Similar to yesterday. No change in presentation. 10/29: Pt reports feeling good ;pt stated, just waiting for a place to live . denies any issues at this time. 10/30: calm, cooperative. active on unit, social with select peers, attending groups. Pt reports feeling worried about where I am going to live . denies any issues at this time. 10/21: no change in presentation. continue current tx plan. 11/01: continue current management and treatment plan. 11/02: Continue current management and treatment plan. 11/03: Continue current management and treatment plan. 11/04: Active on unit. calm, cooperative. social with select peers, attending groups. denies any issues at this time. He reports sleeping well. Pt reports he would be interested in applying for [facility] services; social work aware. 11/05: Active on unit. calm, cooperative. social with select peers, attending groups. denies any issues at this time. Pt reports feeling okay ; he reports anxiety regarding placement. Continue current tx plan. 11/07/23 [facility] referral has appropriate concerns re living stuation cont abilify lamictal 11/08/23 Pt cooperative with care d/c planning working with cont d/c planning cont lamictal abilify 11/12/23 Patient increasingly despairing aware of no clear discharge plan periods needs cuing for much functioning limited social engaged needs help regarding diabetes and medication compliance reportedly had been rejected by multiple rest homes patient not threatening intermittently hopeless helpless very limited family contact at this time 11/13/23 pt flat depressed hopeless helpless unable to fx without structure 11/15 continue tx. 11/16 continue tx. 11/18/2023 Continue plan of care referral to [facility] TSH low will decrease levothyroxine 11/19/23 Pt flat dysphor ic inc hopeless helpless lamictal 150 hs dec levothyroxine 150 d/c planning cont 11/20/23 lamictal inc d/c planning dmh referral 12/02/2023 Continue Lamictal Abilify patient cooperative with care gets despairing at times regarding lack of family support problematic discharge planning in relationship to finding suitable structured place to live 12/02: Social with peers. Per nursing, pt did not sleep last night. Pt reports he did not sleeping because he wasn't tired but feel okay ; ordered Ativan 1mg PO bedtime for tonight, pt aware. 12/03: In bed sleeping, pt reports he is catching up on sleep from the night before. Calm, cooperative. T/W and bilingual patient support caseworker, Billie, with pt to discuss possibly going to the [facility]. Pt reports he would like to call his sister and speak to her before deciding. DC Ativan. 12/04: Active on unit, social with peers. attending groups. T/W and bilingual patient support caseworker, Billie, met with pt to discuss discharge plan. Pt reports he doesn't know if he would want to go to a homeless alf; he states he would rather live on the street because I've done it before . Pt encouraged to consider benefits of going to a alf with the winter months coming; he agreed to doing phone intake with director social welfare on Saturday with [facility]. 12/05: Pt presents similar to yesterday. Continues to perseverate about [facility] being a alf and not a program; He continues to agree to do phone intake on Saturday. Discussed VARGAS, pt reports he want time to consider d/t not liking needles . 12/08: Pt had phone interview with [facility], however, after multiple attempts at calling them, no one at [facility] picked up the phone to conduct interview. bilingual patient support caseworker to get into contact with them again. Pt denies any issues at this time. 12/09: Active on unit, social with peers. Pt denies any issues at this time. Patient agreed to receiving Abilify Maintena; risks/benefits reviewed. Waiting on placement. 12/10: Patient received Abilify Maintena yesterday. He denies any side effects. Pleasant. Waiting on placement. 12/11: continue current tx plan. 12/12: similar to days prior. waiting on placement. continue current tx plan. 12/13: appearing more depressed or demoralized. notes lots of people come and go. continue current mgmt. 12/14: same as for yesterday: find me a place to live? continue current mgmt. 12/15: out and about more. otherwise stable. continue current mgmt. 12/16: continue current tx plan. 12/17: continue current tx plan. 12/18: awaiting placement. denies any issues. 12/19: Pt reports feeling alright ; Social work continues to work on placement. Pt denies any issues at this time. Pt reports sleeping well. 12/20: Continue plan of care 12/21: Continue plan of care 12/22: continue current tx plan. 12/23: continue tx plan. 12/24: continue tx plan. 12/25: similar to days prior. waiting on placement. 12/26: Continue current tx plan. 12/27: Continue current management and treatment plan. 12/28: Continue current management and treatment plan. 12/29: In bed, tested positive for Covid. Vomited x1 per nursing. Pt reports feeling okay ; sleeping most of shift. Continue current tx plan. 12/30: Pt reports feeling okay ; continues on isolation d/t being Covid positive. Utilizing IPad. Pt reports sleeping well. denies SI/HI/VH/AH. Has not vomited today. 12/31: Pt reports feeling alright ; pt stated, I still have a stuffy nose, cough and headache but I'm starting to feel better . continues on isolation. denies other issues at this time. Continue current tx plan. 01/01: pt reports covid symptoms are improving. continues waiting on placement. 01/02: Continue tx plan. 01/05/24: no changes. 01/05: Active on unit. Pt reports feeling okay today; denies any issues at this time. pt had meeting with [facility] to be placed on list for temporary placement; pt declined. Dr. Gonzalez to speak to patient regarding this. 01/06: Discussed placement; pt reports he is thinking about saying yes to the motel . pt reports he does not believe his sister or director social welfare that he has money saved in the bank. Pt believes if he left to go to the motel he would be stuck there with no money . Social work to discuss with pt. 01/07: Active on unit. social with peers. denies any issues. Pt reports feeling okay ; reports he is still thinking about where he will go after discharge. 01/08: waiting on placement. continue current tx plan. 01/09: Patient continues to wait on placement. 119: Continue current management and treatment plan. 03/13: Continue current management and treatment plan. 01/12: waiting on placement. 01/13: continue current tx plan. 01/17: Continue current regimen and plans for stabilization and medication management 01/18: Continue current regimen and plans for stabilization and medication management and placement Plan 1. Continue with same treatment. 2. Waiting for placement Reason for continued inpatient stay Substantial Risk for: inability to function, rapid decompensation and med/psych decompensation Time Spent With Patient Time: Total time managing care of this patient today __20__ minutes.
[2024-01-21] MEDS: metFORMIN HCl ER 500 MG TAB.ER.24H 1000 MG PO (18:07)
[2024-01-21 20:00] VITALS: BP 141/76; PULSE 85; RESP 16; TEMP 36.6; O2SAT 98
[2024-01-21] MEDS: Insulin Glargine,Hum.rec.anlog 100 UNIT/ML 10 ML VIAL 20 UNIT SUBCUT (20:29)
[2024-01-21] MEDS: lamoTRIgine 100 MG TABLET 150 MG PO (20:29)
[2024-01-21] MEDS: traZODone HCL 50 MG TABLET PO ×2 (20:29→23:42)
[2024-01-21 21:06] LABS: Glucose, Whole Blood 135 mg/dL (60-115)
[2024-01-21] MEDS: hydrOXYzine HCL 25 MG TABLET PO (23:42)
[2024-01-22] MEDS: Levothyroxine Sodium 150 MCG TABLET PO (06:13)
[2024-01-22 06:43] LABS: Glucose, Whole Blood 120 mg/dL (60-115)
--- NOTE | 2024-01-22 08:19 | P.PNPSI_ITS ---
Subjective Subjective Date of Service: 01/22/24 Reason For Visit: paranoia cognitive impairment Subjective Notes: Conditional Voluntary Interim History: The nursing staff reported the patient attends to groups he is pleasant cooperative compliant with treatment. On interview the patient denies new symptoms. Mental Status Exam Mental Status Exam Patient Appearance: Appropriate Patient Orientation: Person and Situation Level of Consciousness: Awake and Appropriate Patient Behavior: Guarded and Passive Mood Description: Withdrawn Affect Description: Constricted Patient Cognition Impaired: Yes Ability to Follow Directions: Good Speech Pattern: Clear 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: None Delusions: Not Present Thought Process: Distracted and Slowed Thinking Thought Content: positive for [place] and positive for Circumstantial Judgement: Fair Diagnostics Vital Signs (24Hr): Vital Signs - 24 hr 01/21/24 20:00 Temperature 97.8 F Pulse Rate 85 Respiratory Rate 16 Blood Pressure 141/76 H Pulse Oximetry 98 Oxygen Delivery Method Room Air BMI result Body Mass Index 32.9 Labs 09/10/23 20:00 01/16/24 08:08 Labs: Laboratory Results - last 48 hr 01/20/24 01/21/24 01/21/24 20:33 07:03 20:22 POC Glucose 129 H 153 H 135 H 01/22/24 06:38 POC Glucose 120 H Imaging Radiology Impressions: ITS Impressions Brain MRI 09/19/23 20:33 IMPRESSION: 1. No demonstrated acute intracranial abnormalities. 2. Chronic mild to moderate nonspecific white matter changes, most notably in the deep white matter of the right frontal lobe. Mild to moderate generalized cerebral volume loss. Medications Medications Current Medications Acetaminophen (Acetaminophen 325 Mg Tablet) 650 mg PO Q6H PRN PRN Reason: Headache/Pain Mild Scale (1-3) Last Admin: 01/01/24 08:45 Dose: 650 mg Al Hydroxide/Mg Hydroxide (Magnesium Hydrox/Alum Hydrox 30 Ml Oral.Susp) 30 ml PO Q6H PRN PRN Reason: Heartburn/Nausea Last Admin: 11/27/23 10:48 Dose: 30 ml Aripiprazole (Aripiprazole Er 300 Mg Suser.Syr) 300 mg IM Q28D@0900 MANAS Last Admin: 01/08/24 09:00 Dose: 300 mg Benzocaine (Throat Lozenge, Medicated Lozenge) 1 lozenge MUCOUS MEM Q2H PRN PRN Reason: Sore Throat Last Admin: 12/30/23 20:59 Dose: 1 lozenge Benztropine Mesylate (Benztropine Mesylate 0.5 Mg Tablet) 0.5 mg PO TID PRN PRN Reason: Extrapyramidal Effects Glucose (Glucose Gel 15 Gm Gel..Gram.) 15 gm PO Q15M PRN; Protocol PRN Reason: per Hypoglycemia Standing Ord. Guaifenesin/Dextromethorphan (Guaifenesin Dm 100/10/5 Ml 5 Ml Syrup) 5 ml PO Q4H PRN PRN Reason: Cough Last Admin: 01/06/24 22:48 Dose: 5 ml Hydroxyzine HCl (Hydroxyzine Hcl 25 Mg Tablet) 25 mg PO Q6H PRN PRN Reason: Anxiety Last Admin: 01/21/24 23:42 Dose: 25 mg Dextrose (D10) 250 mls @ 750 mls/hr IV Q15M PRN; Protocol PRN Reason: per Hypoglycemia Standing Ord. Insulin Glargine (Insulin Glargine,Hum.Rec.Anlog 100 Unit/Ml 10 Ml Vial) 20 unit SUBCUT BEDTIME [facility] Last Admin: 01/21/24 20:29 Dose: 20 unit Lamotrigine (Lamotrigine 100 Mg Tablet) 150 mg PO BEDTIME [facility] Last Admin: 01/21/24 20:29 Dose: 150 mg Levothyroxine Sodium (Levothyroxine Sodium 150 Mcg Tablet) 150 mcg PO DAILY@0630 [facility] Last Admin: 01/22/24 06:13 Dose: 150 mcg Magnesium Hydroxide (Milk Of Magnesia 30 Ml Oral.Susp) 30 ml PO DAILY PRN PRN Reason: Constipation Memantine (Memantine Hcl 5 Mg Tablet) 5 mg PO BID [facility] Last Admin: 01/21/24 20:34 Dose: 5 mg Metformin HCl (Metformin Hcl Er 500 Mg Tab.Er.24h) 1,000 mg PO DAILY@1700 [facility] Last Admin: 01/21/24 18:07 Dose: 1,000 mg Ondansetron HCl (Ondansetron Odt 8 Mg Tab.Rapdis) 8 mg TRANSLINGU Q8H PRN PRN Reason: Nausea and Vomiting Last Admin: 12/31/23 08:39 Dose: 8 mg Sertraline HCl (Sertraline Hcl 100 Mg Tablet) 100 mg PO DAILY [facility] Last Admin: 01/21/24 09:00 Dose: 100 mg Simethicone (Simethicone 80 Mg Tab.Chew) 80 mg PO QIDWMHS PRN PRN Reason: Gas Trazodone HCl (Trazodone Hcl 50 Mg Tablet) 50 mg PO BEDTIME MRX1 PRN PRN Reason: Insomnia Last Admin: 01/21/24 23:42 Dose: 50 mg Allergies Allergies Allergy/AdvReac Type Severity Reaction Status Date / Time amoxicillin [AMOXICILLIN] Allergy Mild VOMITING/ABD Verified 09/10/23 19:44 PAIN Assessment & Plan Assessment & Plan (1) Schizoaffective disorder: Status: Acute Code(s): F25.9 - Schizoaffective disorder, unspecified (2) Hypothyroidism: Status: Acute Code(s): E03.9 - Hypothyroidism, unspecified (3) Type 2 diabetes mellitus: Status: Acute Code(s): E11.9 - Type 2 diabetes mellitus without complications (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 Plan: CV 15 minute safety checks Continue home medications: Haldol 10mg PO daily Synthroid 200mcg PO daily Obtain labs; A1C/POCs Obtain collateral from sister Obtain records from last hospitalization. MOCA Referral for [facility] services if patient is agreeable. encourage medication compliance;consider VARGAS discharge planning 09/11: Elevated fasting blood sugar elevated hemoglobin A1c 9.2 med consult placed put in point of care needed will start metformin Would benefit from clarity over recent hospitalization what this were done details regarding treatment continue Haldol unclear if patient has Healthcare proxy his [place] was low slowed cognition with poor details in depth at times during blankly regarding making judgments Unclear if any of this relates to past coma or 2 hypothyroidism. He does seem more impaired than when last seen unclear when last imaging was. Continue Haldol sitter neuro indira involvement regarding diagnostic picture. Patient does remain paranoid blunted suspicious apathetic. He might benefit from longer- term placement if available and appropriate at a later time involved H involvement would be quite helpful 09/12: cont haldol get records ? hcp ? start antidep unclear hx 09/13: Keeping to self. More talkative today. Pt concerned he will be transferred to [facility]. Pt stated, The paper I signed yesterday. Are you going to send me back to the last hospital? That place was horrible . Pt was educated he signed a release of information with Dr. Gonzalez to obtain records from [facility]. Pt was given a copy of the release he signed. Despite this, pt continues to be anxious about being transferred. Pt denies SI/HI/VH/AH. 09/14: Keeping to self. active on unit. showered. Pt reports feeling alright today; pt reports he is worried about where I'm going to go . Pt continues concerned he will be transferred to [facility]. Pt denies SI/HI/VH/AH. 09/15:Pt reports feeling alright today; pt continues to report he is worried about where I'm going to go . Responding with brief responses. Guarded. Observed standing in one place for a long period of time. Appears confused. Pt denies SI/HI/VH/AH. T/W spoke to patient's sister, Ros, with patients verbal consent. Ros reports concerns regarding patients ability to make decisions regarding his mental and physical health. She plans on contacting legal advice on obtaining guardianship of patient. 09/16:Patient's presents similar to yesterday's presentation. Responding with brief responses. Guarded. Observed standing in one place for a long period of time, when asked what he is doing, pt stated, I don't know . Pt reports he plans on contacting his sister today and try to convince her for me to stay there . Pt denies SI/HI/VH/AH. Continue current tx plan. 09/17: brief responses. Guarded. 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 Pt denies SI/HI/VH/AH. T/W and Dr. Gonzalez spoke to patient's sister, Ros. Ros stated being [facility] HCP and plans on finding document. She plans on coming to the hospital on Saturday to be present for [facility] intake. 09/21: No changes 09/22:Patient flat apathetic difficult insight and judgment his sister is healthcare proxy if needed patient is accepting medical treatment [facility] 09/23:Considers starting Haldol Decanoate patient is agreeable superficially difficulty with exec [facility] 09/24:Pt seen in f/u mood flat dysphoric difficulty engaging in conversation preoccupied with thought he wont be living with family thing slowed apathetic no clear response with namenda ? some improvement inc lamictal start low dose sertraline inc lamictal ck tsh 09/25:Start Abilify as augmentation with Haldol see if can be more stimulating regarding depressed mood apathetic limited engagement sertraline 50 mg Lamictal 25 b.i.d. referral to [facility] which would have structure unclear if patient can engage with this he remains quite depressed has delusional beliefs regarding housing and that things have been done he has repeatedly tried to reach out to his sister denies active SI needs much help dressing talking with others encouragement to eat severe thought blocking Abilify might be more stimulating than Haldol which can be more dulling 09/26:Abilify started sertraline Lamictal encouraged step-down to [facility] encourage reality orientation denies active SI 09/27: Continue current regimen and plans 09/28: Continue current regimen and plans. 09/29: Referral to [facility] increase Abilify to 5 mg daily eventually try and taper Haldol sertraline 50 mg daily 09/30:Increase Abilify to 10 mg lower Haldol to 7 mg continue sertraline and Lamictal 10/01:Abilify increased to 10 mg continue to taper Haldol sertraline 100 mg Lamictal increased to 75 mg patient apathetic withdrawn difficulty with placement some paranoia continues difficulty with decision making at times. Not physically aggressive internally preoccupied seems somewhat improved with Abilify sertraline Continue discharge planning 10/02:Patient somewhat blunted flat slowed thinking during the day times staring. Change Abilify to 10 mg at bedtime. Scheduled Haldol will lowered to 2.5 mg Continue sertraline 100 mg Namenda 5 b.i.d. 10/03:Haldol discontinued modafinil low-dose monitor for psychosis or agitation continue discharge planning 10/06: May need to firm healthcare proxy calls have been placed to sister to try to help in discharge planning. Referrals made. Patient cooperative with care 10/07:Pharmacy ordering Abilify maintain a increase modafinil 100 mg patient remains flat passive depressed some improvement noted no current paranoia noted continue discharge planning no current safe discharge plan 10/08: Increase Lamictal 100 mg Abilify Maintena 400 mg hold modafinil unclear if was overly stimulating patient continues to present internally preoccupied. 10/09:Healthcare proxy invoked discharge planning continue Lamictal Abilify pending maintain a 10/10:Healthcare proxy invoked new CV signed discharge planning. 10/11 keep same treatment 10/12 keep same treatment 10/13: Continue plan of care Lamictal Abilify discharge planning sertraline 10/14: stable. continue current mgmt. 10/15: stable. continue current mgmt. 10/16: stable presentation. continue current mgmt. 10/17: as for yesterday. 10/18: no changes. 10/19: stabel, safe. no change. 10/20: no change in presentation. calm, cooperative. active on unit, social with select peers, attending groups. Pt reports feeling alright . denies SI/HI/VH/AH. Social work waiting to hear from possible placement location. Continue current tx plan. 10/21: continue current tx plan. awaiting placement. 10/22: calm, cooperative. active on unit, social with select peers, attending groups. Pt reports feeling good ; pt stated, I'm waiting to see where I'm going . denies SI/HI/VH/AH. Showered with encouragement. 10/23: continue current tx plan. 10/24: calm, cooperative. active on unit, social with select peers, attending groups. Pt reports feeling good ; pt stated, I just want a place to live . 10/25- likely at baseline for him- CTP 10/26 CTP likely needs placement 10/27: continue current tx plan. awaiting placement. 10/28: Similar to yesterday. No change in presentation. 10/29: Pt reports feeling good ;pt stated, just waiting for a place to live . denies any issues at this time. 10/30: calm, cooperative. active on unit, social with select peers, attending groups. Pt reports feeling worried about where I am going to live . denies any issues at this time. 10/21: no change in presentation. continue current tx plan. 11/01: continue current management and treatment plan. 11/02: Continue current management and treatment plan. 11/03: Continue current management and treatment plan. 11/04: Active on unit. calm, cooperative. social with select peers, attending groups. denies any issues at this time. He reports sleeping well. Pt reports he would be interested in applying for [facility] services; social work aware. 11/05: Active on unit. calm, cooperative. social with select peers, attending groups. denies any issues at this time. Pt reports feeling okay ; he reports anxiety regarding placement. Continue current tx plan. 11/07/23 [facility] referral has appropriate concerns re living stuation cont abilify lamictal 11/08/23 Pt cooperative with care d/c planning working with cont d/c planning cont lamictal abilify 11/12/23 Patient increasingly despairing aware of no clear discharge plan periods needs cuing for much functioning limited social engaged needs help regarding diabetes and medication compliance reportedly had been rejected by multiple rest homes patient not threatening intermittently hopeless helpless very limited family contact at this time 11/13/23 pt flat depressed hopeless helpless unable to fx without structure 11/15 continue tx. 11/16 continue tx. 11/18/2023 Continue plan of care referral to [facility] TSH low will decrease levothyroxine 11/19/23 Pt flat dysphor ic inc hopeless helpless lamictal 150 hs dec levothyroxine 150 d/c planning cont 11/20/23 lamictal inc d/c planning [facility] referral 12/02/2023 Continue Lamictal Abilify patient cooperative with care gets despairing at times regarding lack of family support problematic discharge planning in relationship to finding suitable structured place to live 12/02: Social with peers. Per nursing, pt did not sleep last night. Pt reports he did not sleeping because he wasn't tired but feel okay ; ordered Ativan 1mg PO bedtime for tonight, pt aware. 12/03: In bed sleeping, pt reports he is catching up on sleep from the night before. Calm, cooperative. T/W and probation worker, Billie, with pt to discuss possibly going to the [facility]. Pt reports he would like to call his sister and speak to her before deciding. DC Ativan. 12/04: Active on unit, social with peers. attending groups. T/W and probation worker, Billie, met with pt to discuss discharge plan. Pt reports he doesn't know if he would want to go to a homeless fdc; he states he would rather live on the street because I've done it before . Pt encouraged to consider benefits of going to a fdc with the winter months coming; he agreed to doing phone intake with social service worker on Saturday with [facility]. 12/05: Pt presents similar to yesterday. Continues to perseverate about [facility] being a fdc and not a program; He continues to agree to do phone intake on Saturday. Discussed VARGAS, pt reports he want time to consider d/t not liking needles . 12/08: Pt had phone interview with [facility], however, after multiple attempts at calling them, no one at [facility] picked up the phone to conduct interview. probation worker to get into contact with them again. Pt denies any issues at this time. 12/09: Active on unit, social with peers. Pt denies any issues at this time. Patient agreed to receiving Abilify Maintena; risks/benefits reviewed. Waiting on placement. 12/10: Patient received Abilify Maintena yesterday. He denies any side effects. Pleasant. Waiting on placement. 12/11: continue current tx plan. 12/12: similar to days prior. waiting on placement. continue current tx plan. 12/13: appearing more depressed or demoralized. notes lots of people come and go. continue current mgmt. 12/14: same as for yesterday: find me a place to live? continue current mgmt. 12/15: out and about more. otherwise stable. continue current mgmt. 12/16: continue current tx plan. 12/17: continue current tx plan. 12/18: awaiting placement. denies any issues. 12/19: Pt reports feeling alright ; Social work continues to work on placement. Pt denies any issues at this time. Pt reports sleeping well. 12/20: Continue plan of care 12/21: Continue plan of care 12/22: continue current tx plan. 12/23: continue tx plan. 12/24: continue tx plan. 12/25: similar to days prior. waiting on placement. 12/26: Continue current tx plan. 12/27: Continue current management and treatment plan. 12/28: Continue current management and treatment plan. 12/29: In bed, tested positive for Covid. Vomited x1 per nursing. Pt reports feeling okay ; sleeping most of shift. Continue current tx plan. 12/30: Pt reports feeling okay ; continues on isolation d/t being Covid positive. Utilizing IPad. Pt reports sleeping well. denies SI/HI/VH/AH. Has not vomited today. 12/31: Pt reports feeling alright ; pt stated, I still have a stuffy nose, cough and headache but I'm starting to feel better . continues on isolation. denies other issues at this time. Continue current tx plan. 01/01: pt reports covid symptoms are improving. continues waiting on placement. 01/02: Continue tx plan. 01/05/24: no changes. 01/05: Active on unit. Pt reports feeling okay today; denies any issues at this time. pt had meeting with [facility] to be placed on list for temporary placement; pt declined. Dr. Gonzalez to speak to patient regarding this. 01/06: Discussed placement; pt reports he is thinking about saying yes to the motel . pt reports he does not believe his sister or social service worker that he has money saved in the bank. Pt believes if he left to go to the motel he would be stuck there with no money . Social work to discuss with pt. 01/07: Active on unit. social with peers. denies any issues. Pt reports feeling okay ; reports he is still thinking about where he will go after discharge. 01/08: waiting on placement. continue current tx plan. 01/09: Patient continues to wait on placement. 119: Continue current management and treatment plan. 03/13: Continue current management and treatment plan. 01/12: waiting on placement. 01/13: continue current tx plan. 01/17: Continue current regimen and plans for stabilization and medication management 01/18: Continue current regimen and plans for stabilization and medication management and placement Plan 1. Continue with same treatment. 2. Waiting for placement Reason for continued inpatient stay Substantial Risk for: inability to function, rapid decompensation and med/psych decompensation Time Spent With Patient Time: Total time managing care of this patient today _20___ minutes.
[2024-01-22 09:42] VITALS: BP 152/77; PULSE 82; RESP 15; TEMP 36.1; O2SAT 97
[2024-01-22] MEDS: Memantine HCl 5 MG TABLET PO ×2 (09:43→21:26)
[2024-01-22] MEDS: Sertraline HCL 100 MG TABLET PO (09:43)
[2024-01-22] MEDS: metFORMIN HCl ER 500 MG TAB.ER.24H 1000 MG PO (17:25)
[2024-01-22 20:00] VITALS: BP 114/69; PULSE 77; RESP 16; TEMP 36.6; O2SAT 96
[2024-01-22] MEDS: Insulin Glargine,Hum.rec.anlog 100 UNIT/ML 10 ML VIAL 20 UNIT SUBCUT (21:25)
[2024-01-22] MEDS: lamoTRIgine 100 MG TABLET 150 MG PO (21:25)
[2024-01-22] MEDS: hydrOXYzine HCL 25 MG TABLET PO (21:26)
[2024-01-22] MEDS: traZODone HCL 50 MG TABLET PO (21:26)
[2024-01-23] MEDS: Levothyroxine Sodium 150 MCG TABLET PO (06:26)
[2024-01-23 06:53] LABS: Glucose, Whole Blood 107 mg/dL (60-115)
[2024-01-23 08:00] VITALS: BP 118/66; PULSE 74; RESP 18; TEMP 36.7; O2SAT 96
[2024-01-23] MEDS: Memantine HCl 5 MG TABLET PO ×2 (08:36→20:44)
[2024-01-23] MEDS: Sertraline HCL 100 MG TABLET PO (08:36)
[2024-01-23 09:01] VITALS: BMI 32.2
[2024-01-23 10:55] LABS: Creatinine Clr Calc Pharmacy 105.2; Estimated Glomerular Filt Rate > 60
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
[2024-01-23] MEDS: metFORMIN HCl ER 500 MG TAB.ER.24H 1000 MG PO (16:46)
[2024-01-23 20:00] VITALS: BP 127/71; PULSE 85; RESP 18; TEMP 36.9; O2SAT 97
[2024-01-23] MEDS: Insulin Glargine,Hum.rec.anlog 100 UNIT/ML 10 ML VIAL 20 UNIT SUBCUT (20:41)
[2024-01-23] MEDS: lamoTRIgine 100 MG TABLET 150 MG PO (20:42)
[2024-01-23] MEDS: traZODone HCL 50 MG TABLET PO (20:44)
[2024-01-23] MEDS: hydrOXYzine HCL 25 MG TABLET PO (20:44)
[2024-01-24] MEDS: traZODone HCL 50 MG TABLET PO (00:21)
[2024-01-24] MEDS: Levothyroxine Sodium 150 MCG TABLET PO (06:53)
[2024-01-24 07:09] LABS: Glucose, Whole Blood 102 mg/dL (60-115)
[2024-01-24 08:00] VITALS: BP 115/61; PULSE 73; RESP 18; TEMP 36.9; O2SAT 96
[2024-01-24] MEDS: Memantine HCl 5 MG TABLET PO ×2 (09:01→20:43)
[2024-01-24] MEDS: Sertraline HCL 50 MG TABLET PO (09:01)
--- NOTE | 2024-01-24 12:41 | P.PNPSI_ITS ---
Subjective Subjective Date of Service: 01/24/24 Reason For Visit: paranoia cognitive impairment Subjective Notes: Conditional Voluntary Interim History: The nursing staff reported the patient remains on one-to-one since he is very intrusive following patient's to the bathroom. He has been intrusive but redirectable. On interview the patient denies new symptoms, waiting for placement. Mental Status Exam Mental Status Exam Patient Appearance: Well Grooomed and Appropriate Patient Orientation: Person and Situation Level of Consciousness: Awake and Appropriate Patient Behavior: Guarded and Passive Mood Description: Withdrawn Affect Description: Constricted Patient Cognition Impaired: Yes Ability to Follow Directions: Good Speech Pattern: Clear 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: None Delusions: Ideas of Reference Thought Process: Linear Thought Content: positive for [place] and positive for Poverty of Content Judgement: Fair Diagnostics Vital Signs (24Hr): Vital Signs - 24 hr 01/23/24 20:00 01/24/24 08:00 Temperature 98.5 F 98.4 F Pulse Rate 85 73 Respiratory Rate 18 18 Blood Pressure 127/71 115/61 Pulse Oximetry 97 96 Oxygen Delivery Method Room Air Room Air BMI result Body Mass Index 32.2 Labs 09/10/23 20:00 01/23/24 10:28 Labs: Laboratory Results - last 48 hr 01/23/24 01/23/24 01/24/24 06:44 10:28 06:52 Creatinine 0.87 Estim Creat Clear Calc 105.2 Estimated GFR > 60 POC Glucose 107 102 Imaging Radiology Impressions: ITS Impressions Brain MRI 09/19/23 20:33 IMPRESSION: 1. No demonstrated acute intracranial abnormalities. 2. Chronic mild to moderate nonspecific white matter changes, most notably in the deep white matter of the right frontal lobe. Mild to moderate generalized cerebral volume loss. Medications Medications Current Medications Acetaminophen (Acetaminophen 325 Mg Tablet) 650 mg PO Q6H PRN PRN Reason: Headache/Pain Mild Scale (1-3) Last Admin: 01/01/24 08:45 Dose: 650 mg Al Hydroxide/Mg Hydroxide (Magnesium Hydrox/Alum Hydrox 30 Ml Oral.Susp) 30 ml PO Q6H PRN PRN Reason: Heartburn/Nausea Last Admin: 11/27/23 10:48 Dose: 30 ml Aripiprazole (Aripiprazole Er 300 Mg Suser.Syr) 300 mg IM Q28D@0900 MANAS Last Admin: 01/08/24 09:00 Dose: 300 mg Benzocaine (Throat Lozenge, Medicated Lozenge) 1 lozenge MUCOUS MEM Q2H PRN PRN Reason: Sore Throat Last Admin: 12/30/23 20:59 Dose: 1 lozenge Benztropine Mesylate (Benztropine Mesylate 0.5 Mg Tablet) 0.5 mg PO TID PRN PRN Reason: Extrapyramidal Effects Glucose (Glucose Gel 15 Gm Gel..Gram.) 15 gm PO Q15M PRN; Protocol PRN Reason: per Hypoglycemia Standing Ord. Guaifenesin/Dextromethorphan (Guaifenesin Dm 100/10/5 Ml 5 Ml Syrup) 5 ml PO Q4H PRN PRN Reason: Cough Last Admin: 01/06/24 22:48 Dose: 5 ml Hydroxyzine HCl (Hydroxyzine Hcl 25 Mg Tablet) 25 mg PO Q6H PRN PRN Reason: Anxiety Last Admin: 01/23/24 20:44 Dose: 25 mg Dextrose (D10) 250 mls @ 750 mls/hr IV Q15M PRN; Protocol PRN Reason: per Hypoglycemia Standing Ord. Insulin Glargine (Insulin Glargine,Hum.Rec.Anlog 100 Unit/Ml 10 Ml Vial) 20 unit SUBCUT BEDTIME [facility] Last Admin: 01/23/24 20:41 Dose: 20 unit Lamotrigine (Lamotrigine 100 Mg Tablet) 150 mg PO BEDTIME [facility] Last Admin: 01/23/24 20:42 Dose: 150 mg Levothyroxine Sodium (Levothyroxine Sodium 150 Mcg Tablet) 150 mcg PO DAILY@0630 [facility] Last Admin: 01/24/24 06:53 Dose: 150 mcg Magnesium Hydroxide (Milk Of Magnesia 30 Ml Oral.Susp) 30 ml PO DAILY PRN PRN Reason: Constipation Memantine (Memantine Hcl 5 Mg Tablet) 5 mg PO BID [facility] Last Admin: 01/24/24 09:01 Dose: 5 mg Metformin HCl (Metformin Hcl Er 500 Mg Tab.Er.24h) 1,000 mg PO DAILY@1700 [facility] Last Admin: 01/23/24 16:46 Dose: 1,000 mg Ondansetron HCl (Ondansetron Odt 8 Mg Tab.Rapdis) 8 mg TRANSLINGU Q8H PRN PRN Reason: Nausea and Vomiting Last Admin: 12/31/23 08:39 Dose: 8 mg Sertraline HCl (Sertraline Hcl 50 Mg Tablet) 50 mg PO DAILY MANAS Last Admin: 01/24/24 09:01 Dose: 50 mg Simethicone (Simethicone 80 Mg Tab.Chew) 80 mg PO QIDWMHS PRN PRN Reason: Gas Trazodone HCl (Trazodone Hcl 50 Mg Tablet) 50 mg PO BEDTIME MRX1 PRN PRN Reason: Insomnia Last Admin: 01/24/24 00:21 Dose: 50 mg Allergies Allergies Allergy/AdvReac Type Severity Reaction Status Date / Time amoxicillin [AMOXICILLIN] Allergy Mild VOMITING/ABD Verified 09/10/23 19:44 PAIN Assessment & Plan Assessment & Plan (1) Schizoaffective disorder: Status: Acute Code(s): F25.9 - Schizoaffective disorder, unspecified (2) Hypothyroidism: Status: Acute Code(s): E03.9 - Hypothyroidism, unspecified (3) Type 2 diabetes mellitus: Status: Acute Code(s): E11.9 - Type 2 diabetes mellitus without complications (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 Plan: CV 15 minute safety checks Continue home medications: Haldol 10mg PO daily Synthroid 200mcg PO daily Obtain labs; A1C/POCs Obtain collateral from sister Obtain records from last hospitalization. MOCA Referral for [facility] services if patient is agreeable. encourage medication compliance;consider VARGAS discharge planning 09/11: Elevated fasting blood sugar elevated hemoglobin A1c 9.2 med consult placed put in point of care needed will start metformin Would benefit from clarity over recent hospitalization what this were done details regarding treatment continue Haldol unclear if patient has Healthcare proxy his [place] was low slowed cognition with poor details in depth at times during blankly regarding making judgments Unclear if any of this relates to past coma or 2 hypothyroidism. He does seem more impaired than when last seen unclear when last imaging was. Continue Haldol [facility] neuro indira involvement regarding diagnostic picture. Patient does remain paranoid blunted suspicious apathetic. He might benefit from longer- term placement if available and appropriate at a later time involved [facility] involvement would be quite helpful 09/12: cont haldol get records ? hcp ? start antidep unclear hx 09/13: Keeping to self. More talkative today. Pt concerned he will be transferred to [facility]. Pt stated, The paper I signed yesterday. Are you going to send me back to the last hospital? That place was horrible . Pt was educated he signed a release of information with Dr. Gonzalez to obtain records from [facility]. Pt was given a copy of the release he signed. Despite this, pt continues to be anxious about being transferred. Pt denies SI/HI/VH/AH. 09/14: Keeping to self. active on unit. showered. Pt reports feeling alright today; pt reports he is worried about where I'm going to go . Pt continues concerned he will be transferred to [facility]. Pt denies SI/HI/VH/AH. 09/15:Pt reports feeling alright today; pt continues to report he is worried about where I'm going to go . Responding with brief responses. Guarded. Observed standing in one place for a long period of time. Appears confused. Pt denies SI/HI/VH/AH. T/W spoke to patient's sister, Ros, with patients verbal consent. Ros reports concerns regarding patients ability to make decisions regarding his mental and physical health. She plans on contacting legal advice on obtaining guardianship of patient. 09/16:Patient's presents similar to yesterday's presentation. Responding with brief responses. Guarded. Observed standing in one place for a long period of time, when asked what he is doing, pt stated, I don't know . Pt reports he plans on contacting his sister today and try to convince her for me to stay there . Pt denies SI/HI/VH/AH. Continue current tx plan. 09/17: brief responses. Guarded. 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 Pt denies SI/HI/VH/AH. T/W and Dr. Gonzalez spoke to patient's sister, Ros. Ros stated being [facility] HCP and plans on finding document. She plans on coming to the hospital on Saturday to be present for [facility] intake. 09/21: No changes 09/22:Patient flat apathetic difficult insight and judgment his sister is healthcare proxy if needed patient is accepting medical treatment Referral to [facility] 09/23:Considers starting Haldol Decanoate patient is agreeable superficially difficulty with exec fx was seen [facility] 09/24:Pt seen in f/u mood flat dysphoric difficulty engaging in conversation preoccupied with thought he wont be living with family thing slowed apathetic no clear response with namenda ? some improvement inc lamictal start low dose sertraline inc lamictal ck tsh 09/25:Start Abilify as augmentation with Haldol see if can be more stimulating regarding depressed mood apathetic limited engagement sertraline 50 mg Lamictal 25 b.i.d. referral to [facility] which would have structure unclear if patient can engage with this he remains quite depressed has delusional beliefs regarding housing and that things have been done he has repeatedly tried to reach out to his sister denies active SI needs much help dressing talking with others encouragement to eat severe thought blocking Abilify might be more stimulating than Haldol which can be more dulling 09/26:Abilify started sertraline Lamictal encouraged step-down to [facility] encourage reality orientation denies active SI 09/27: Continue current regimen and plans 09/28: Continue current regimen and plans. 09/29: Referral to [facility] increase Abilify to 5 mg daily eventually try and taper Haldol sertraline 50 mg daily 09/30:Increase Abilify to 10 mg lower Haldol to 7 mg continue sertraline and Lamictal 10/01:Abilify increased to 10 mg continue to taper Haldol sertraline 100 mg Lamictal increased to 75 mg patient apathetic withdrawn difficulty with placement some paranoia continues difficulty with decision making at times. Not physically aggressive internally preoccupied seems somewhat improved with Abilify sertraline Continue discharge planning 10/02:Patient somewhat blunted flat slowed thinking during the day times staring. Change Abilify to 10 mg at bedtime. Scheduled Haldol will lowered to 2.5 mg Continue sertraline 100 mg Namenda 5 b.i.d. 10/03:Haldol discontinued modafinil low-dose monitor for psychosis or agitation continue discharge planning 10/06: May need to firm healthcare proxy calls have been placed to sister to try to help in discharge planning. Referrals made. Patient cooperative with care 10/07:Pharmacy ordering Abilify maintain a increase modafinil 100 mg patient remains flat passive depressed some improvement noted no current paranoia noted continue discharge planning no current safe discharge plan 10/08: Increase Lamictal 100 mg Abilify Maintena 400 mg hold modafinil unclear if was overly stimulating patient continues to present internally preoccupied. 10/09:Healthcare proxy invoked discharge planning continue Lamictal Abilify pending maintain a 10/10:Healthcare proxy invoked new CV signed discharge planning. 10/11 keep same treatment 10/12 keep same treatment 10/13: Continue plan of care Lamictal Abilify discharge planning sertraline 10/14: stable. continue current mgmt. 10/15: stable. continue current mgmt. 10/16: stable presentation. continue current mgmt. 10/17: as for yesterday. 10/18: no changes. 10/19: stabel, safe. no change. 10/20: no change in presentation. calm, cooperative. active on unit, social with select peers, attending groups. Pt reports feeling alright . denies SI/HI/VH/AH. Social work waiting to hear from possible placement location. Continue current tx plan. 10/21: continue current tx plan. awaiting placement. 10/22: calm, cooperative. active on unit, social with select peers, attending groups. Pt reports feeling good ; pt stated, I'm waiting to see where I'm going . denies SI/HI/VH/AH. Showered with encouragement. 10/23: continue current tx plan. 10/24: calm, cooperative. active on unit, social with select peers, attending groups. Pt reports feeling good ; pt stated, I just want a place to live . 10/25- likely at baseline for him- CTP 10/26 CTP likely needs placement 10/27: continue current tx plan. awaiting placement. 10/28: Similar to yesterday. No change in presentation. 10/29: Pt reports feeling good ;pt stated, just waiting for a place to live . denies any issues at this time. 10/30: calm, cooperative. active on unit, social with select peers, attending groups. Pt reports feeling worried about where I am going to live . denies any issues at this time. 10/21: no change in presentation. continue current tx plan. 11/01: continue current management and treatment plan. 11/02: Continue current management and treatment plan. 11/03: Continue current management and treatment plan. 11/04: Active on unit. calm, cooperative. social with select peers, attending groups. denies any issues at this time. He reports sleeping well. Pt reports he would be interested in applying for [facility] services; social work aware. 11/05: Active on unit. calm, cooperative. social with select peers, attending groups. denies any issues at this time. Pt reports feeling okay ; he reports anxiety regarding placement. Continue current tx plan. 11/07/23 [facility] referral has appropriate concerns re living stuation cont abilify lamictal 11/08/23 Pt cooperative with care d/c planning working with cont d/c planning cont lamictal abilify 11/12/23 Patient increasingly despairing aware of no clear discharge plan periods needs cuing for much functioning limited social engaged needs help regarding diabetes and medication compliance reportedly had been rejected by multiple rest homes patient not threatening intermittently hopeless helpless very limited family contact at this time 11/13/23 pt flat depressed hopeless helpless unable to fx without structure 11/15 continue tx. 11/16 continue tx. 11/18/2023 Continue plan of care referral to [facility] TSH low will decrease levothyroxine 11/19/23 Pt flat dysphor ic inc hopeless helpless lamictal 150 hs dec levothyroxine 150 d/c planning cont 11/20/23 lamictal inc d/c planning dmh referral 12/02/2023 Continue Lamictal Abilify patient cooperative with care gets despairing at times regarding lack of family support problematic discharge planning in relationship to finding suitable structured place to live 12/02: Social with peers. Per nursing, pt did not sleep last night. Pt reports he did not sleeping because he wasn't tired but feel okay ; ordered Ativan 1mg PO bedtime for tonight, pt aware. 12/03: In bed sleeping, pt reports he is catching up on sleep from the night before. Calm, cooperative. T/W and right of way worker, Billie, with pt to discuss possibly going to the [facility]. Pt reports he would like to call his sister and speak to her before deciding. DC Ativan. 12/04: Active on unit, social with peers. attending groups. T/W and right of way worker, Billie, met with pt to discuss discharge plan. Pt reports he doesn't know if he would want to go to a homeless half-way; he states he would rather live on the street because I've done it before . Pt encouraged to consider benefits of going to a half-way with the winter months coming; he agreed to doing phone intake with social media strategist on Saturday with [facility]. 12/05: Pt presents similar to yesterday. Continues to perseverate about [facility] being a half-way and not a program; He continues to agree to do phone intake on Saturday. Discussed VARGAS, pt reports he want time to consider d/t not liking needles . 12/08: Pt had phone interview with [facility], however, after multiple attempts at calling them, no one at [facility] picked up the phone to conduct interview. right of way worker to get into contact with them again. Pt denies any issues at this time. 12/09: Active on unit, social with peers. Pt denies any issues at this time. Patient agreed to receiving Abilify Maintena; risks/benefits reviewed. Waiting on placement. 12/10: Patient received Abilify Maintena yesterday. He denies any side effects. Pleasant. Waiting on placement. 12/11: continue current tx plan. 12/12: similar to days prior. waiting on placement. continue current tx plan. 12/13: appearing more depressed or demoralized. notes lots of people come and go. continue current mgmt. 12/14: same as for yesterday: find me a place to live? continue current mgmt. 12/15: out and about more. otherwise stable. continue current mgmt. 12/16: continue current tx plan. 12/17: continue current tx plan. 12/18: awaiting placement. denies any issues. 12/19: Pt reports feeling alright ; Social work continues to work on placement. Pt denies any issues at this time. Pt reports sleeping well. 12/20: Continue plan of care 12/21: Continue plan of care 12/22: continue current tx plan. 12/23: continue tx plan. 12/24: continue tx plan. 12/25: similar to days prior. waiting on placement. 12/26: Continue current tx plan. 12/27: Continue current management and treatment plan. 12/28: Continue current management and treatment plan. 12/29: In bed, tested positive for Covid. Vomited x1 per nursing. Pt reports feeling okay ; sleeping most of shift. Continue current tx plan. 12/30: Pt reports feeling okay ; continues on isolation d/t being Covid positive. Utilizing IPad. Pt reports sleeping well. denies SI/HI/VH/AH. Has not vomited today. 12/31: Pt reports feeling alright ; pt stated, I still have a stuffy nose, cough and headache but I'm starting to feel better . continues on isolation. denies other issues at this time. Continue current tx plan. 01/01: pt reports covid symptoms are improving. continues waiting on placement. 01/02: Continue tx plan. 01/05/24: no changes. 01/05: Active on unit. Pt reports feeling okay today; denies any issues at this time. pt had meeting with [facility] to be placed on list for temporary placement; pt declined. Dr. Gonzalez to speak to patient regarding this. 01/06: Discussed placement; pt reports he is thinking about saying yes to the motel . pt reports he does not believe his sister or social media strategist that he has money saved in the bank. Pt believes if he left to go to the motel he would be stuck there with no money . Social work to discuss with pt. 01/07: Active on unit. social with peers. denies any issues. Pt reports feeling okay ; reports he is still thinking about where he will go after discharge. 01/08: waiting on placement. continue current tx plan. 01/09: Patient continues to wait on placement. 119: Continue current management and treatment plan. 03/13: Continue current management and treatment plan. 01/12: waiting on placement. 01/13: continue current tx plan. 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 noted on the unit to fixate on certain female peers. Plan 1. Continue with same treatment. 2. Waiting for placement Reason for continued inpatient stay Substantial Risk for: inability to function, rapid decompensation and med/psych decompensation Time Spent With Patient Time: Total time managing care of this patient today __20__ minutes.
[2024-01-24 13:53] LABS: Estimated Average Glucose 143 mg/dL; Hemoglobin A1C 175.3444 umol/L; Hemoglobin A1c % 6.6 % (<6.0); Total Hemoglobin (HGBA1C) 3614.9736 umol/L
[2024-01-24 14:16] LABS: TSH reflex Free T4 1.23 uIU/mL (0.32-4.0)
[2024-01-24] MEDS: metFORMIN HCl ER 500 MG TAB.ER.24H 1000 MG PO (16:30)
[2024-01-24 20:00] VITALS: BP 130/75; PULSE 91; RESP 14; TEMP 36.6; O2SAT 96
[2024-01-24] MEDS: Insulin Glargine,Hum.rec.anlog 100 UNIT/ML 10 ML VIAL 20 UNIT SUBCUT (20:42)
[2024-01-24] MEDS: lamoTRIgine 100 MG TABLET 150 MG PO (20:43)
[2024-01-25] MEDS: Levothyroxine Sodium 150 MCG TABLET PO (06:32)
[2024-01-25 06:46] LABS: Glucose, Whole Blood 106 mg/dL (60-115)
[2024-01-25 08:01] VITALS: BP 141/65; PULSE 93; RESP 20; TEMP 36.6; O2SAT 98
[2024-01-25] MEDS: Memantine HCl 5 MG TABLET PO ×2 (08:40→20:28)
[2024-01-25] MEDS: Sertraline HCL 50 MG TABLET PO (08:40)
--- NOTE | 2024-01-25 14:16 | P.PNPSI_ITS ---
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 Medication Compliance: Yes Side effects from medications: No Attending Groups: Yes Review of Systems Acute medical concerns: No Medical Review of Systems: unchanged Mental Status Exam Mental Status Exam Patient Appearance: Well Grooomed and Appropriate Patient Orientation: Person and Situation Level of Consciousness: Awake and Appropriate Patient Behavior: Guarded and Passive Mood Description: Withdrawn Affect Description: Constricted Patient Cognition Impaired: Yes Ability to Follow Directions: Good Speech Pattern: Clear 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: None Delusions: Ideas of Reference Thought Process: Linear Thought Content: positive for [place] and positive for Poverty of Content Judgement: Poor Diagnostics Vital Signs (24Hr): Vital Signs - 24 hr 01/24/24 20:00 01/25/24 08:01 Temperature 97.8 F 97.8 F Pulse Rate 91 93 Respiratory Rate 14 20 Blood Pressure 130/75 141/65 H Pulse Oximetry 96 98 Oxygen Delivery Method Room Air Room Air BMI result Body Mass Index 32.2 Labs 09/10/23 20:00 01/23/24 10:28 Labs: Laboratory Results - last 48 hr 01/24/24 01/24/24 01/25/24 06:52 13:28 06:31 POC Glucose 102 106 Estimat Average Glucose 143 Hemoglobin A1c % 6.6 H TSH 1.23 Imaging Radiology Impressions: ITS Impressions Brain MRI 09/19/23 20:33 IMPRESSION: 1. No demonstrated acute intracranial abnormalities. 2. Chronic mild to moderate nonspecific white matter changes, most notably in the deep white matter of the right frontal lobe. Mild to moderate generalized cerebral volume loss. Medications Medications Current Medications Acetaminophen (Acetaminophen 325 Mg Tablet) 650 mg PO Q6H PRN PRN Reason: Headache/Pain Mild Scale (1-3) Last Admin: 01/01/24 08:45 Dose: 650 mg Al Hydroxide/Mg Hydroxide (Magnesium Hydrox/Alum Hydrox 30 Ml Oral.Susp) 30 ml PO Q6H PRN PRN Reason: Heartburn/Nausea Last Admin: 11/27/23 10:48 Dose: 30 ml Aripiprazole (Aripiprazole Er 300 Mg Suser.Syr) 300 mg IM Q28D@0900 [facility] Last Admin: 01/08/24 09:00 Dose: 300 mg Benzocaine (Throat Lozenge, Medicated Lozenge) 1 lozenge MUCOUS MEM Q2H PRN PRN Reason: Sore Throat Last Admin: 12/30/23 20:59 Dose: 1 lozenge Benztropine Mesylate (Benztropine Mesylate 0.5 Mg Tablet) 0.5 mg PO TID PRN PRN Reason: Extrapyramidal Effects Glucose (Glucose Gel 15 Gm Gel..Gram.) 15 gm PO Q15M PRN; Protocol PRN Reason: per Hypoglycemia Standing Ord. Guaifenesin/Dextromethorphan (Guaifenesin Dm 100/10/5 Ml 5 Ml Syrup) 5 ml PO Q4H PRN PRN Reason: Cough Last Admin: 01/06/24 22:48 Dose: 5 ml Hydroxyzine HCl (Hydroxyzine Hcl 25 Mg Tablet) 25 mg PO Q6H PRN PRN Reason: Anxiety Last Admin: 01/23/24 20:44 Dose: 25 mg Dextrose (D10) 250 mls @ 750 mls/hr IV Q15M PRN; Protocol PRN Reason: per Hypoglycemia Standing Ord. Insulin Glargine (Insulin Glargine,Hum.Rec.Anlog 100 Unit/Ml 10 Ml Vial) 20 unit SUBCUT BEDTIME [facility] Last Admin: 01/24/24 20:42 Dose: 20 unit Lamotrigine (Lamotrigine 100 Mg Tablet) 150 mg PO BEDTIME [facility] Last Admin: 01/24/24 20:43 Dose: 150 mg Levothyroxine Sodium (Levothyroxine Sodium 150 Mcg Tablet) 150 mcg PO DAILY@0630 [facility] Last Admin: 01/25/24 06:32 Dose: 150 mcg Magnesium Hydroxide (Milk Of Magnesia 30 Ml Oral.Susp) 30 ml PO DAILY PRN PRN Reason: Constipation Memantine (Memantine Hcl 5 Mg Tablet) 5 mg PO BID [facility] Last Admin: 01/25/24 08:40 Dose: 5 mg Metformin HCl (Metformin Hcl Er 500 Mg Tab.Er.24h) 1,000 mg PO DAILY@1700 [facility] Last Admin: 01/24/24 16:30 Dose: 1,000 mg Ondansetron HCl (Ondansetron Odt 8 Mg Tab.Rapdis) 8 mg TRANSLINGU Q8H PRN PRN Reason: Nausea and Vomiting Last Admin: 12/31/23 08:39 Dose: 8 mg Sertraline HCl (Sertraline Hcl 50 Mg Tablet) 50 mg PO DAILY [facility] Last Admin: 01/25/24 08:40 Dose: 50 mg Simethicone (Simethicone 80 Mg Tab.Chew) 80 mg PO QIDWMHS PRN PRN Reason: Gas Trazodone HCl (Trazodone Hcl 50 Mg Tablet) 50 mg PO BEDTIME MRX1 PRN PRN Reason: Insomnia Last Admin: 01/24/24 00:21 Dose: 50 mg Allergies Allergies Allergy/AdvReac Type Severity Reaction Status Date / Time amoxicillin [AMOXICILLIN] Allergy Mild VOMITING/ABD Verified 09/10/23 19:44 PAIN Assessment & Plan Assessment & Plan (1) Schizoaffective disorder: Status: Acute Code(s): F25.9 - Schizoaffective disorder, unspecified (2) Hypothyroidism: Status: Acute Code(s): E03.9 - Hypothyroidism, unspecified (3) Type 2 diabetes mellitus: Status: Acute Code(s): E11.9 - Type 2 diabetes mellitus without complications (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 Plan: CV 15 minute safety checks Continue home medications: Haldol 10mg PO daily Synthroid 200mcg PO daily Obtain labs; A1C/POCs Obtain collateral from sister Obtain records from last hospitalization. MOCA Referral for DMH services if patient is agreeable. encourage medication compliance;consider VARGAS discharge planning 09/11: Elevated fasting blood sugar elevated hemoglobin A1c 9.2 med consult placed put in point of care needed will start metformin Would benefit from clarity over recent hospitalization what this were done details regarding treatment continue Haldol unclear if patient has Healthcare proxy his [place] was low slowed cognition with poor details in depth at times during blankly regarding making judgments Unclear if any of this relates to past coma or 2 hypothyroidism. He does seem more impaired than when last seen unclear when last imaging was. Continue Haldol sitter neuro indira involvement regarding diagnostic picture. Patient does remain paranoid blunted suspicious apathetic. He might benefit from longer- term placement if available and appropriate at a later time involved DMH involvement would be quite helpful 09/12: cont haldol get records ? hcp ? start antidep unclear hx 09/13: Keeping to self. More talkative today. Pt concerned he will be transferred to [facility]. Pt stated, The paper I signed yesterday. Are you going to send me back to the last hospital? That place was horrible . Pt was educated he signed a release of information with Dr. Gonzalez to obtain records from [facility]. Pt was given a copy of the release he signed. Despite this, pt continues to be anxious about being transferred. Pt denies SI/HI/VH/AH. 09/14: Keeping to self. active on unit. showered. Pt reports feeling alright today; pt reports he is worried about where I'm going to go . Pt continues concerned he will be transferred to [facility]. Pt denies SI/HI/VH/AH. 09/15:Pt reports feeling alright today; pt continues to report he is worried about where I'm going to go . Responding with brief responses. Guarded. Observed standing in one place for a long period of time. Appears confused. Pt denies SI/HI/VH/AH. T/W spoke to patient's sister, Ros, with patients verbal consent. Ros reports concerns regarding patients ability to make decisions regarding his mental and physical health. She plans on contacting legal advice on obtaining guardianship of patient. 09/16:Patient's presents similar to yesterday's presentation. Responding with brief responses. Guarded. Observed standing in one place for a long period of time, when asked what he is doing, pt stated, I don't know . Pt reports he plans on contacting his sister today and try to convince her for me to stay there . Pt denies SI/HI/VH/AH. Continue current tx plan. 09/17: brief responses. Guarded. 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 Pt denies SI/HI/VH/AH. T/W and Dr. Gonzalez spoke to patient's sister, Ros. Ros stated being [facility] HCP and plans on finding document. She plans on coming to the hospital on Saturday to be present for [facility] intake. 09/21: No changes 09/22:Patient flat apathetic difficult insight and judgment his sister is healthcare proxy if needed patient is accepting medical treatment Referral to [facility] 09/23:Considers starting Haldol Decanoate patient is agreeable superficially difficulty with exec fx was seen [facility] 09/24:Pt seen in f/u mood flat dysphoric difficulty engaging in conversation preoccupied with thought he wont be living with family thing slowed apathetic no clear response with namenda ? some improvement inc lamictal start low dose sertraline inc lamictal ck tsh 09/25:Start Abilify as augmentation with Haldol see if can be more stimulating regarding depressed mood apathetic limited engagement sertraline 50 mg Lamictal 25 b.i.d. referral to [facility] which would have structure unclear if patient can engage with this he remains quite depressed has delusional beliefs regarding housing and that things have been done he has repeatedly tried to reach out to his sister denies active SI needs much help dressing talking with others encouragement to eat severe thought blocking Abilify might be more stimulating than Haldol which can be more dulling 09/26:Abilify started sertraline Lamictal encouraged step-down to [facility] encourage reality orientation denies active SI 09/27: Continue current regimen and plans 09/28: Continue current regimen and plans. 09/29: Referral to [facility] increase Abilify to 5 mg daily eventually try and taper Haldol sertraline 50 mg daily 09/30:Increase Abilify to 10 mg lower Haldol to 7 mg continue sertraline and Lamictal 10/01:Abilify increased to 10 mg continue to taper Haldol sertraline 100 mg Lamictal increased to 75 mg patient apathetic withdrawn difficulty with placement some paranoia continues difficulty with decision making at times. Not physically aggressive internally preoccupied seems somewhat improved with Abilify sertraline Continue discharge planning 10/02:Patient somewhat blunted flat slowed thinking during the day times staring. Change Abilify to 10 mg at bedtime. Scheduled Haldol will lowered to 2.5 mg Continue sertraline 100 mg Namenda 5 b.i.d. 10/03:Haldol discontinued modafinil low-dose monitor for psychosis or agitation continue discharge planning 10/06: May need to firm healthcare proxy calls have been placed to sister to try to help in discharge planning. Referrals made. Patient cooperative with care 10/07:Pharmacy ordering Abilify maintain a increase modafinil 100 mg patient remains flat passive depressed some improvement noted no current paranoia noted continue discharge planning no current safe discharge plan 10/08: Increase Lamictal 100 mg Abilify Maintena 400 mg hold modafinil unclear if was overly stimulating patient continues to present internally preoccupied. 10/09:Healthcare proxy invoked discharge planning continue Lamictal Abilify pending maintain a 10/10:Healthcare proxy invoked new CV signed discharge planning. 10/11 keep same treatment 10/12 keep same treatment 10/13: Continue plan of care Lamictal Abilify discharge planning sertraline 10/14: stable. continue current mgmt. 10/15: stable. continue current mgmt. 10/16: stable presentation. continue current mgmt. 10/17: as for yesterday. 10/18: no changes. 10/19: stabel, safe. no change. 10/20: no change in presentation. calm, cooperative. active on unit, social with select peers, attending groups. Pt reports feeling alright . denies SI/HI/VH/AH. Social work waiting to hear from possible placement location. Continue current tx plan. 10/21: continue current tx plan. awaiting placement. 10/22: calm, cooperative. active on unit, social with select peers, attending groups. Pt reports feeling good ; pt stated, I'm waiting to see where I'm going . denies SI/HI/VH/AH. Showered with encouragement. 10/23: continue current tx plan. 10/24: calm, cooperative. active on unit, social with select peers, attending groups. Pt reports feeling good ; pt stated, I just want a place to live . 10/25- likely at baseline for him- CTP 10/26 CTP likely needs placement 10/27: continue current tx plan. awaiting placement. 10/28: Similar to yesterday. No change in presentation. 10/29: Pt reports feeling good ;pt stated, just waiting for a place to live . denies any issues at this time. 10/30: calm, cooperative. active on unit, social with select peers, attending groups. Pt reports feeling worried about where I am going to live . denies any issues at this time. 10/21: no change in presentation. continue current tx plan. 11/01: continue current management and treatment plan. 11/02: Continue current management and treatment plan. 11/03: Continue current management and treatment plan. 11/04: Active on unit. calm, cooperative. social with select peers, attending groups. denies any issues at this time. He reports sleeping well. Pt reports he would be interested in applying for [facility] services; social work aware. 11/05: Active on unit. calm, cooperative. social with select peers, attending groups. denies any issues at this time. Pt reports feeling okay ; he reports anxiety regarding placement. Continue current tx plan. 11/07/23 [facility] referral has appropriate concerns re living stuation cont abilify lamictal 11/08/23 Pt cooperative with care d/c planning working with cont d/c planning cont lamictal abilify 11/12/23 Patient increasingly despairing aware of no clear discharge plan periods needs cuing for much functioning limited social engaged needs help regarding diabetes and medication compliance reportedly had been rejected by multiple rest homes patient not threatening intermittently hopeless helpless very limited family contact at this time 11/13/23 pt flat depressed hopeless helpless unable to fx without structure 11/15 continue tx. 11/16 continue tx. 11/18/2023 Continue plan of care referral to [facility] TSH low will decrease levothyroxine 11/19/23 Pt flat dysphor ic inc hopeless helpless lamictal 150 hs dec levothyroxine 150 d/c planning cont 11/20/23 lamictal inc d/c planning dmh referral 12/02/2023 Continue Lamictal Abilify patient cooperative with care gets despairing at times regarding lack of family support problematic discharge planning in relationship to finding suitable structured place to live 12/02: Social with peers. Per nursing, pt did not sleep last night. Pt reports he did not sleeping because he wasn't tired but feel okay ; ordered Ativan 1mg PO bedtime for tonight, pt aware. 12/03: In bed sleeping, pt reports he is catching up on sleep from the night before. Calm, cooperative. T/W and food and drink factory workers, Billie, with pt to discuss possibly going to the [facility]. Pt reports he would like to call his sister and speak to her before deciding. DC Ativan. 12/04: Active on unit, social with peers. attending groups. T/W and food and drink factory workers, Billie, met with pt to discuss discharge plan. Pt reports he doesn't know if he would want to go to a homeless snf; he states he would rather live on the street because I've done it before . Pt encouraged to consider benefits of going to a snf with the winter months coming; he agreed to doing phone intake with social work supervisor on Saturday with [facility]. 12/05: Pt presents similar to yesterday. Continues to perseverate about [facility] being a snf and not a program; He continues to agree to do phone intake on Saturday. Discussed VARGAS, pt reports he want time to consider d/t not liking needles . 12/08: Pt had phone interview with [facility], however, after multiple attempts at calling them, no one at [facility] picked up the phone to conduct interview. food and drink factory workers to get into contact with them again. Pt denies any issues at this time. 12/09: Active on unit, social with peers. Pt denies any issues at this time. Patient agreed to receiving Abilify Maintena; risks/benefits reviewed. Waiting on placement. 12/10: Patient received Abilify Maintena yesterday. He denies any side effects. Pleasant. Waiting on placement. 12/11: continue current tx plan. 12/12: similar to days prior. waiting on placement. continue current tx plan. 12/13: appearing more depressed or demoralized. notes lots of people come and go. continue current mgmt. 12/14: same as for yesterday: find me a place to live? continue current mgmt. 12/15: out and about more. otherwise stable. continue current mgmt. 12/16: continue current tx plan. 12/17: continue current tx plan. 12/18: awaiting placement. denies any issues. 12/19: Pt reports feeling alright ; Social work continues to work on placement. Pt denies any issues at this time. Pt reports sleeping well. 12/20: Continue plan of care 12/21: Continue plan of care 12/22: continue current tx plan. 12/23: continue tx plan. 12/24: continue tx plan. 12/25: similar to days prior. waiting on placement. 12/26: Continue current tx plan. 12/27: Continue current management and treatment plan. 12/28: Continue current management and treatment plan. 12/29: In bed, tested positive for Covid. Vomited x1 per nursing. Pt reports feeling okay ; sleeping most of shift. Continue current tx plan. 12/30: Pt reports feeling okay ; continues on isolation d/t being Covid positive. Utilizing IPad. Pt reports sleeping well. denies SI/HI/VH/AH. Has not vomited today. 12/31: Pt reports feeling alright ; pt stated, I still have a stuffy nose, cough and headache but I'm starting to feel better . continues on isolation. denies other issues at this time. Continue current tx plan. 01/01: pt reports covid symptoms are improving. continues waiting on placement. 01/02: Continue tx plan. 01/05/24: no changes. 01/05: Active on unit. Pt reports feeling okay today; denies any issues at this time. pt had meeting with [facility] to be placed on list for temporary placement; pt declined. Dr. Gonzalez to speak to patient regarding this. 01/06: Discussed placement; pt reports he is thinking about saying yes to the motel . pt reports he does not believe his sister or social work supervisor that he has money saved in the bank. Pt believes if he left to go to the motel he would be stuck there with no money . Social work to discuss with pt. 01/07: Active on unit. social with peers. denies any issues. Pt reports feeling okay ; reports he is still thinking about where he will go after discharge. 01/08: waiting on placement. continue current tx plan. 01/09: Patient continues to wait on placement. 119: Continue current management and treatment plan. 03/13: Continue current management and treatment plan. 01/12: waiting on placement. 01/13: continue current tx plan. 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 noted on the unit to fixate on certain female peers. 01/24 continues with impaired insight/judgement- risk to others requiring inpatient and 1;1 Plan 1. Continue with same treatment. 2. Waiting for placement Reason for continued inpatient stay Substantial Risk for: harm to others and rapid decompensation Time Spent With Patient Time: Total time managing care of this patient today ____ minutes.
[2024-01-25] MEDS: metFORMIN HCl ER 500 MG TAB.ER.24H 1000 MG PO (16:44)
[2024-01-25 20:00] VITALS: BP 131/72; PULSE 91; RESP 15; TEMP 37; O2SAT 97
[2024-01-25] MEDS: lamoTRIgine 100 MG TABLET 150 MG PO (20:28)
[2024-01-25] MEDS: traZODone HCL 50 MG TABLET PO (20:28)
[2024-01-25] MEDS: Insulin Glargine,Hum.rec.anlog 100 UNIT/ML 10 ML VIAL 20 UNIT SUBCUT (20:29)
[2024-01-26] MEDS: Levothyroxine Sodium 150 MCG TABLET PO (06:32)
[2024-01-26 06:54] LABS: Glucose, Whole Blood 104 mg/dL (60-115)
[2024-01-26 08:00] VITALS: BP 118/64; PULSE 72; RESP 17; TEMP 36; O2SAT 99
[2024-01-26] MEDS: Sertraline HCL 50 MG TABLET PO (09:37)
[2024-01-26] MEDS: Memantine HCl 5 MG TABLET PO ×2 (09:37→20:27)
--- NOTE | 2024-01-26 15:17 | HO.PSYCHPN ---
Subjective Subjective Date of Service: 01/26/24 Reason For Visit: paranoia cognitive impairment Subjective Notes: Conditional Voluntary Healthcare Proxy: No Guardianship: No Medical Problems Affecting Mental Status: Yes (Fronto temporal dementia ?) Interim History: 59 yo WM with early dementia hx of injury to frontal lobe- ? 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 Medical Review of Systems: unchanged Mental Status Exam Mental Status Exam Patient Appearance: Appropriate and Unkempt Patient Orientation: Person and Situation Level of Consciousness: Awake and Appropriate Patient Behavior: Guarded and Passive Mood Description: Withdrawn Affect Description: Constricted Patient Cognition Impaired: Yes Ability to Follow Directions: Good Speech Pattern: Clear 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: None Delusions: Ideas of Reference Thought Process: Linear Thought Content: positive for [place] and positive for Poverty of Content Judgement: Poor Diagnostics Vital Signs (24Hr): Vital Signs - 24 hr 01/25/24 20:00 01/26/24 08:00 Temperature 98.6 F 96.8 F Pulse Rate 91 72 Respiratory Rate 15 17 Blood Pressure 131/72 118/64 Pulse Oximetry 97 99 Oxygen Delivery Method Room Air BMI result Body Mass Index 32.2 Labs 09/10/23 20:00 01/23/24 10:28 Labs: Laboratory Results - last 48 hr 01/25/24 01/26/24 06:31 06:40 POC Glucose 106 104 Imaging Radiology Impressions: ITS Impressions Brain MRI 09/19/23 20:33 IMPRESSION: 1. No demonstrated acute intracranial abnormalities. 2. Chronic mild to moderate nonspecific white matter changes, most notably in the deep white matter of the right frontal lobe. Mild to moderate generalized cerebral volume loss. Medications Medications Current Medications Acetaminophen (Acetaminophen 325 Mg Tablet) 650 mg PO Q6H PRN PRN Reason: Headache/Pain Mild Scale (1-3) Last Admin: 01/01/24 08:45 Dose: 650 mg Al Hydroxide/Mg Hydroxide (Magnesium Hydrox/Alum Hydrox 30 Ml Oral.Susp) 30 ml PO Q6H PRN PRN Reason: Heartburn/Nausea Last Admin: 11/27/23 10:48 Dose: 30 ml Aripiprazole (Aripiprazole Er 300 Mg Suser.Syr) 300 mg IM Q28D@0900 [facility] Last Admin: 01/08/24 09:00 Dose: 300 mg Benzocaine (Throat Lozenge, Medicated Lozenge) 1 lozenge MUCOUS MEM Q2H PRN PRN Reason: Sore Throat Last Admin: 12/30/23 20:59 Dose: 1 lozenge Benztropine Mesylate (Benztropine Mesylate 0.5 Mg Tablet) 0.5 mg PO TID PRN PRN Reason: Extrapyramidal Effects Glucose (Glucose Gel 15 Gm Gel..Gram.) 15 gm PO Q15M PRN; Protocol PRN Reason: per Hypoglycemia Standing Ord. Guaifenesin/Dextromethorphan (Guaifenesin Dm 100/10/5 Ml 5 Ml Syrup) 5 ml PO Q4H PRN PRN Reason: Cough Last Admin: 01/06/24 22:48 Dose: 5 ml Hydroxyzine HCl (Hydroxyzine Hcl 25 Mg Tablet) 25 mg PO Q6H PRN PRN Reason: Anxiety Last Admin: 01/23/24 20:44 Dose: 25 mg Dextrose (D10) 250 mls @ 750 mls/hr IV Q15M PRN; Protocol PRN Reason: per Hypoglycemia Standing Ord. Insulin Glargine (Insulin Glargine,Hum.Rec.Anlog 100 Unit/Ml 10 Ml Vial) 20 unit SUBCUT BEDTIME [facility] Last Admin: 01/25/24 20:29 Dose: 20 unit Lamotrigine (Lamotrigine 100 Mg Tablet) 150 mg PO BEDTIME [facility] Last Admin: 01/25/24 20:28 Dose: 150 mg Levothyroxine Sodium (Levothyroxine Sodium 150 Mcg Tablet) 150 mcg PO DAILY@0630 [facility] Last Admin: 01/26/24 06:32 Dose: 150 mcg Magnesium Hydroxide (Milk Of Magnesia 30 Ml Oral.Susp) 30 ml PO DAILY PRN PRN Reason: Constipation Memantine (Memantine Hcl 5 Mg Tablet) 5 mg PO BID [facility] Last Admin: 01/26/24 09:37 Dose: 5 mg Metformin HCl (Metformin Hcl Er 500 Mg Tab.Er.24h) 1,000 mg PO DAILY@1700 [facility] Last Admin: 01/25/24 16:44 Dose: 1,000 mg Ondansetron HCl (Ondansetron Odt 8 Mg Tab.Rapdis) 8 mg TRANSLINGU Q8H PRN PRN Reason: Nausea and Vomiting Last Admin: 12/31/23 08:39 Dose: 8 mg Sertraline HCl (Sertraline Hcl 50 Mg Tablet) 50 mg PO DAILY MANAS Last Admin: 01/26/24 09:37 Dose: 50 mg Simethicone (Simethicone 80 Mg Tab.Chew) 80 mg PO QIDWMHS PRN PRN Reason: Gas Trazodone HCl (Trazodone Hcl 50 Mg Tablet) 50 mg PO BEDTIME MRX1 PRN PRN Reason: Insomnia Last Admin: 01/25/24 20:28 Dose: 50 mg Allergies Allergies Allergy/AdvReac Type Severity Reaction Status Date / Time amoxicillin [AMOXICILLIN] Allergy Mild VOMITING/ABD Verified 09/10/23 19:44 PAIN Assessment & Plan Assessment & Plan (1) Schizoaffective disorder: Status: Acute Code(s): F25.9 - Schizoaffective disorder, unspecified (2) Hypothyroidism: Status: Acute Code(s): E03.9 - Hypothyroidism, unspecified (3) Type 2 diabetes mellitus: Status: Acute Code(s): E11.9 - Type 2 diabetes mellitus without complications (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 Plan: CV 15 minute safety checks Continue home medications: Haldol 10mg PO daily Synthroid 200mcg PO daily Obtain labs; A1C/POCs Obtain collateral from sister Obtain records from last hospitalization. MOCA Referral for DMH services if patient is agreeable. encourage medication compliance;consider VARGAS discharge planning 09/11: Elevated fasting blood sugar elevated hemoglobin A1c 9.2 med consult placed put in point of care needed will start metformin Would benefit from clarity over recent hospitalization what this were done details regarding treatment continue Haldol unclear if patient has Healthcare proxy his [place] was low slowed cognition with poor details in depth at times during blankly regarding making judgments Unclear if any of this relates to past coma or 2 hypothyroidism. He does seem more impaired than when last seen unclear when last imaging was. Continue Haldol sitter neuro indira involvement regarding diagnostic picture. Patient does remain paranoid blunted suspicious apathetic. He might benefit from longer-term placement if available and appropriate at a later time involved DMH involvement would be quite helpful 09/12: cont haldol get records ? hcp ? start antidep unclear hx 09/13: Keeping to self. More talkative today. Pt concerned he will be transferred to [facility]. Pt stated, The paper I signed yesterday. Are you going to send me back to the last hospital? That place was horrible . Pt was educated he signed a release of information with Dr. Gonzalez to obtain records from [facility]. Pt was given a copy of the release he signed. Despite this, pt continues to be anxious about being transferred. Pt denies SI/HI/VH/AH. 09/14: Keeping to self. active on unit. showered. Pt reports feeling alright today; pt reports he is worried about where I'm going to go . Pt continues concerned he will be transferred to [facility]. Pt denies SI/HI/VH/AH. 09/15:Pt reports feeling alright today; pt continues to report he is worried about where I'm going to go . Responding with brief responses. Guarded. Observed standing in one place for a long period of time. Appears confused. Pt denies SI/HI/VH/AH. T/W spoke to patient's sister, Ros, with patients verbal consent. Ros reports concerns regarding patients ability to make decisions regarding his mental and physical health. She plans on contacting legal advice on obtaining guardianship of patient. 09/16:Patient's presents similar to yesterday's presentation. Responding with brief responses. Guarded. Observed standing in one place for a long period of time, when asked what he is doing, pt stated, I don't know . Pt reports he plans on contacting his sister today and try to convince her for me to stay there . Pt denies SI/HI/VH/AH. Continue current tx plan. 09/17: brief responses. Guarded. Continues to quality internship one place for a long period of time, when asked what he is doing, pt stated, I don't know . Pt denies SI/HI/VH/AH. T/W and Dr. Gonzalez spoke to patient's sister, Ros. Ros stated being [facility] HCP and plans on finding document. She plans on coming to the hospital on Saturday to be present for [facility] intake. 09/21: No changes 09/22:Patient flat apathetic difficult insight and judgment his sister is healthcare proxy if needed patient is accepting medical treatment Referral to [facility] 09/23:Considers starting Haldol Decanoate patient is agreeable superficially difficulty with exec fx was seen [facility] 09/24:Pt seen in f/u mood flat dysphoric difficulty engaging in conversation preoccupied with thought he wont be living with family thing slowed apathetic no clear response with namenda ? some improvement inc lamictal start low dose sertraline inc lamictal ck tsh 09/25:Start Abilify as augmentation with Haldol see if can be more stimulating regarding depressed mood apathetic limited engagement sertraline 50 mg Lamictal 25 b.i.d. referral to [facility] which would have structure unclear if patient can engage with this he remains quite depressed has delusional beliefs regarding housing and that things have been done he has repeatedly tried to reach out to his sister denies active SI needs much help dressing talking with others encouragement to eat severe thought blocking Abilify might be more stimulating than Haldol which can be more dulling 09/26:Abilify started sertraline Lamictal encouraged step-down to [facility] encourage reality orientation denies active SI 09/27: Continue current regimen and plans 09/28: Continue current regimen and plans. 09/29: Referral to [facility] increase Abilify to 5 mg daily eventually try and taper Haldol sertraline 50 mg daily 09/30:Increase Abilify to 10 mg lower Haldol to 7 mg continue sertraline and Lamictal 10/01:Abilify increased to 10 mg continue to taper Haldol sertraline 100 mg Lamictal increased to 75 mg patient apathetic withdrawn difficulty with placement some paranoia continues difficulty with decision making at times. Not physically aggressive internally preoccupied seems somewhat improved with Abilify sertraline Continue discharge planning 10/02:Patient somewhat blunted flat slowed thinking during the day times staring. Change Abilify to 10 mg at bedtime. Scheduled Haldol will lowered to 2.5 mg Continue sertraline 100 mg Namenda 5 b.i.d. 10/03:Haldol discontinued modafinil low-dose monitor for psychosis or agitation continue discharge planning 10/06: May need to firm healthcare proxy calls have been placed to sister to try to help in discharge planning. Referrals made. Patient cooperative with care 10/07:Pharmacy ordering Abilify maintain a increase modafinil 100 mg patient remains flat passive depressed some improvement noted no current paranoia noted continue discharge planning no current safe discharge plan 10/08: Increase Lamictal 100 mg Abilify Maintena 400 mg hold modafinil unclear if was overly stimulating patient continues to present internally preoccupied. 10/09:Healthcare proxy invoked discharge planning continue Lamictal Abilify pending maintain a 10/10:Healthcare proxy invoked new CV signed discharge planning. 10/11 keep same treatment 10/12 keep same treatment 10/13: Continue plan of care Lamictal Abilify discharge planning sertraline 10/14: stable. continue current mgmt. 10/15: stable. continue current mgmt. 10/16: stable presentation. continue current mgmt. 10/17: as for yesterday. 10/18: no changes. 10/19: stabel, safe. no change. 10/20: no change in presentation. calm, cooperative. active on unit, social with select peers, attending groups. Pt reports feeling alright . denies SI/HI/VH/AH. Social work waiting to hear from possible placement location. Continue current tx plan. 10/21: continue current tx plan. awaiting placement. 10/22: calm, cooperative. active on unit, social with select peers, attending groups. Pt reports feeling good ; pt stated, I'm waiting to see where I'm going . denies SI/HI/VH/AH. Showered with encouragement. 10/23: continue current tx plan. 10/24: calm, cooperative. active on unit, social with select peers, attending groups. Pt reports feeling good ; pt stated, I just want a place to live . 10/25- likely at baseline for him- CTP 10/26 CTP likely needs placement 10/27: continue current tx plan. awaiting placement. 10/28: Similar to yesterday. No change in presentation. 10/29: Pt reports feeling good ;pt stated, just waiting for a place to live . denies any issues at this time. 10/30: calm, cooperative. active on unit, social with select peers, attending groups. Pt reports feeling worried about where I am going to live . denies any issues at this time. 10/21: no change in presentation. continue current tx plan. 11/01: continue current management and treatment plan. 11/02: Continue current management and treatment plan. 11/03: Continue current management and treatment plan. 11/04: Active on unit. calm, cooperative. social with select peers, attending groups. denies any issues at this time. He reports sleeping well. Pt reports he would be interested in applying for [facility] services; social work aware. 11/05: Active on unit. calm, cooperative. social with select peers, attending groups. denies any issues at this time. Pt reports feeling okay ; he reports anxiety regarding placement. Continue current tx plan. 11/07/23 [facility] referral has appropriate concerns re living stuation cont abilify lamictal 11/08/23 Pt cooperative with care d/c planning working with cont d/c planning cont lamictal abilify 11/12/23 Patient increasingly despairing aware of no clear discharge plan periods needs cuing for much functioning limited social engaged needs help regarding diabetes and medication compliance reportedly had been rejected by multiple rest homes patient not threatening intermittently hopeless helpless very limited family contact at this time 11/13/23 pt flat depressed hopeless helpless unable to fx without structure 11/15 continue tx. 11/16 continue tx. 11/18/2023 Continue plan of care referral to [facility] TSH low will decrease levothyroxine 11/19/23 Pt flat dysphor ic inc hopeless helpless lamictal 150 hs dec levothyroxine 150 d/c planning cont 11/20/23 lamictal inc d/c planning dmh referral 12/02/2023 Continue Lamictal Abilify patient cooperative with care gets despairing at times regarding lack of family support problematic discharge planning in relationship to finding suitable structured place to live 12/02: Social with peers. Per nursing, pt did not sleep last night. Pt reports he did not sleeping because he wasn't tired but feel okay ; ordered Ativan 1mg PO bedtime for tonight, pt aware. 12/03: In bed sleeping, pt reports he is catching up on sleep from the night before. Calm, cooperative. T/W and overhead worker, Billie, with pt to discuss possibly going to the [facility]. Pt reports he would like to call his sister and speak to her before deciding. DC Ativan. 12/04: Active on unit, social with peers. attending groups. T/W and overhead worker, Billie, met with pt to discuss discharge plan. Pt reports he doesn't know if he would want to go to a homeless senior care; he states he would rather live on the street because I've done it before . Pt encouraged to consider benefits of going to a senior care with the winter months coming; he agreed to doing phone intake with healthcare social worker on Saturday with [facility]. 12/05: Pt presents similar to yesterday. Continues to perseverate about [facility] being a senior care and not a program; He continues to agree to do phone intake on Saturday. Discussed VARGAS, pt reports he want time to consider d/t not liking needles . 12/08: Pt had phone interview with [facility], however, after multiple attempts at calling them, no one at [facility] picked up the phone to conduct interview. overhead worker to get into contact with them again. Pt denies any issues at this time. 12/09: Active on unit, social with peers. Pt denies any issues at this time. Patient agreed to receiving Abilify Maintena; risks/benefits reviewed. Waiting on placement. 12/10: Patient received Abilify Maintena yesterday. He denies any side effects. Pleasant. Waiting on placement. 12/11: continue current tx plan. 12/12: similar to days prior. waiting on placement. continue current tx plan. 12/13: appearing more depressed or demoralized. notes lots of people come and go. continue current mgmt. 12/14: same as for yesterday: find me a place to live? continue current mgmt. 12/15: out and about more. otherwise stable. continue current mgmt. 12/16: continue current tx plan. 12/17: continue current tx plan. 12/18: awaiting placement. denies any issues. 12/19: Pt reports feeling alright ; Social work continues to work on placement. Pt denies any issues at this time. Pt reports sleeping well. 12/20: Continue plan of care 12/21: Continue plan of care 12/22: continue current tx plan. 12/23: continue tx plan. 12/24: continue tx plan. 12/25: similar to days prior. waiting on placement. 12/26: Continue current tx plan. 12/27: Continue current management and treatment plan. 12/28: Continue current management and treatment plan. 12/29: In bed, tested positive for Covid. Vomited x1 per nursing. Pt reports feeling okay ; sleeping most of shift. Continue current tx plan. 12/30: Pt reports feeling okay ; continues on isolation d/t being Covid positive. Utilizing IPad. Pt reports sleeping well. denies SI/HI/VH/AH. Has not vomited today. 12/31: Pt reports feeling alright ; pt stated, I still have a stuffy nose, cough and headache but I'm starting to feel better . continues on isolation. denies other issues at this time. Continue current tx plan. 01/01: pt reports covid symptoms are improving. continues waiting on placement. 01/02: Continue tx plan. 01/05/24: no changes. 01/05: Active on unit. Pt reports feeling okay today; denies any issues at this time. pt had meeting with [facility] to be placed on list for temporary placement; pt declined. Dr. Gonzalez to speak to patient regarding this. 01/06: Discussed placement; pt reports he is thinking about saying yes to the motel . pt reports he does not believe his sister or healthcare social worker that he has money saved in the bank. Pt believes if he left to go to the motel he would be stuck there with no money . Social work to discuss with pt. 01/07: Active on unit. social with peers. denies any issues. Pt reports feeling okay ; reports he is still thinking about where he will go after discharge. 01/08: waiting on placement. continue current tx plan. 01/09: Patient continues to wait on placement. 119: Continue current management and treatment plan. 03/13: Continue current management and treatment plan. 01/12: waiting on placement. 01/13: continue current tx plan. 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 noted on the unit to fixate on certain female peers. 01/24 continues with impaired insight/judgement- risk to others requiring inpatient and 1;1 01/25 given poor insight and stalking behavior continues to need inpt level of stay Plan 1. Continue with same treatment. 2. Waiting for placement Reason for continued inpatient stay Substantial Risk for: harm to others, inability to function and rapid decompensation Time Spent With Patient Time: Total time managing care of this patient today ____ minutes.
[2024-01-26] MEDS: metFORMIN HCl ER 500 MG TAB.ER.24H 1000 MG PO (17:01)
--- NOTE | 2024-01-26 17:57 | PC.NURSE ---
Patient compliant with medications, refused breakfast but joined other clients for lunch and dinner. Interacting mostly with roommate. 1:1 observation continues.
[2024-01-26 20:00] VITALS: BP 120/61; PULSE 74; RESP 16; TEMP 36.6; O2SAT 98
[2024-01-26] MEDS: lamoTRIgine 100 MG TABLET 150 MG PO (20:25)
[2024-01-26] MEDS: Insulin Glargine,Hum.rec.anlog 100 UNIT/ML 10 ML VIAL 20 UNIT SUBCUT (20:25)
[2024-01-26] MEDS: traZODone HCL 50 MG TABLET PO (20:27)
[2024-01-27] MEDS: Levothyroxine Sodium 150 MCG TABLET PO (06:50)
[2024-01-27 07:00] LABS: Glucose, Whole Blood 145 mg/dL (60-115)
[2024-01-27 08:00] VITALS: BP 105/68; PULSE 68; RESP 17; TEMP 36; O2SAT 97
[2024-01-27] MEDS: Sertraline HCL 50 MG TABLET PO (08:49)
[2024-01-27] MEDS: Memantine HCl 5 MG TABLET PO ×2 (08:49→22:23)
--- NOTE | 2024-01-27 13:07 | HO.PSYCHPN ---
Subjective Subjective Date of Service: 01/27/24 Reason For Visit: paranoia cognitive impairment Subjective Notes: Conditional Voluntary Interim History: The nursing staff reported the patient had been compliant with treatment, no changes in his mental status. Today we review his case and we decided to change to 5 minute checks. On interview the patient denies new symptoms, waiting for placement. Mental Status Exam Mental Status Exam Patient Appearance: Appropriate Patient Orientation: Person and Situation Level of Consciousness: Awake and Appropriate Patient Behavior: Guarded and Passive Mood Description: Withdrawn Affect Description: Constricted Patient Cognition Impaired: Yes Ability to Follow Directions: Good Speech Pattern: Clear 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: None Delusions: Not Present Thought Process: Distracted and Slowed Thinking Thought Content: positive for Hen[place] and positive for Poverty of Content Judgement: Fair Diagnostics Vital Signs (24Hr): Vital Signs - 24 hr 01/26/24 20:00 01/27/24 08:00 Temperature 97.9 F 96.8 F Pulse Rate 74 68 Respiratory Rate 16 17 Blood Pressure 120/61 105/68 Pulse Oximetry 98 97 Oxygen Delivery Method Room Air Room Air BMI result Body Mass Index 32.2 Labs 09/10/23 20:00 01/23/24 10:28 Labs: Laboratory Results - last 48 hr 01/26/24 01/27/24 06:40 06:47 POC Glucose 104 145 H Imaging Radiology Impressions: ITS Impressions Brain MRI 09/19/23 20:33 IMPRESSION: 1. No demonstrated acute intracranial abnormalities. 2. Chronic mild to moderate nonspecific white matter changes, most notably in the deep white matter of the right frontal lobe. Mild to moderate generalized cerebral volume loss. Medications Medications Current Medications Acetaminophen (Acetaminophen 325 Mg Tablet) 650 mg PO Q6H PRN PRN Reason: Headache/Pain Mild Scale (1-3) Last Admin: 01/01/24 08:45 Dose: 650 mg Al Hydroxide/Mg Hydroxide (Magnesium Hydrox/Alum Hydrox 30 Ml Oral.Susp) 30 ml PO Q6H PRN PRN Reason: Heartburn/Nausea Last Admin: 11/27/23 10:48 Dose: 30 ml Aripiprazole (Aripiprazole Er 300 Mg Suser.Syr) 300 mg IM Q28D@0900 MANAS Last Admin: 01/08/24 09:00 Dose: 300 mg Benzocaine (Throat Lozenge, Medicated Lozenge) 1 lozenge MUCOUS MEM Q2H PRN PRN Reason: Sore Throat Last Admin: 12/30/23 20:59 Dose: 1 lozenge Benztropine Mesylate (Benztropine Mesylate 0.5 Mg Tablet) 0.5 mg PO TID PRN PRN Reason: Extrapyramidal Effects Glucose (Glucose Gel 15 Gm Gel..Gram.) 15 gm PO Q15M PRN; Protocol PRN Reason: per Hypoglycemia Standing Ord. Guaifenesin/Dextromethorphan (Guaifenesin Dm 100/10/5 Ml 5 Ml Syrup) 5 ml PO Q4H PRN PRN Reason: Cough Last Admin: 01/06/24 22:48 Dose: 5 ml Hydroxyzine HCl (Hydroxyzine Hcl 25 Mg Tablet) 25 mg PO Q6H PRN PRN Reason: Anxiety Last Admin: 01/23/24 20:44 Dose: 25 mg Dextrose (D10) 250 mls @ 750 mls/hr IV Q15M PRN; Protocol PRN Reason: per Hypoglycemia Standing Ord. Insulin Glargine (Insulin Glargine,Hum.Rec.Anlog 100 Unit/Ml 10 Ml Vial) 20 unit SUBCUT BEDTIME [facility] Last Admin: 01/26/24 20:25 Dose: 20 unit Lamotrigine (Lamotrigine 100 Mg Tablet) 150 mg PO BEDTIME [facility] Last Admin: 01/26/24 20:25 Dose: 150 mg Levothyroxine Sodium (Levothyroxine Sodium 150 Mcg Tablet) 150 mcg PO DAILY@0630 [facility] Last Admin: 01/27/24 06:50 Dose: 150 mcg Magnesium Hydroxide (Milk Of Magnesia 30 Ml Oral.Susp) 30 ml PO DAILY PRN PRN Reason: Constipation Memantine (Memantine Hcl 5 Mg Tablet) 5 mg PO BID [facility] Last Admin: 01/27/24 08:49 Dose: 5 mg Metformin HCl (Metformin Hcl Er 500 Mg Tab.Er.24h) 1,000 mg PO DAILY@1700 [facility] Last Admin: 01/26/24 17:01 Dose: 1,000 mg Ondansetron HCl (Ondansetron Odt 8 Mg Tab.Rapdis) 8 mg TRANSLINGU Q8H PRN PRN Reason: Nausea and Vomiting Last Admin: 12/31/23 08:39 Dose: 8 mg Sertraline HCl (Sertraline Hcl 50 Mg Tablet) 50 mg PO DAILY [facility] Last Admin: 01/27/24 08:49 Dose: 50 mg Simethicone (Simethicone 80 Mg Tab.Chew) 80 mg PO QIDWMHS PRN PRN Reason: Gas Trazodone HCl (Trazodone Hcl 50 Mg Tablet) 50 mg PO BEDTIME MRX1 PRN PRN Reason: Insomnia Last Admin: 01/26/24 20:27 Dose: 50 mg Allergies Allergies Allergy/AdvReac Type Severity Reaction Status Date / Time amoxicillin [AMOXICILLIN] Allergy Mild VOMITING/ABD Verified 09/10/23 19:44 PAIN Assessment & Plan Assessment & Plan (1) Schizoaffective disorder: Status: Acute Code(s): F25.9 - Schizoaffective disorder, unspecified (2) Hypothyroidism: Status: Acute Code(s): E03.9 - Hypothyroidism, unspecified (3) Type 2 diabetes mellitus: Status: Acute Code(s): E11.9 - Type 2 diabetes mellitus without complications (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 Plan: CV 15 minute safety checks Continue home medications: Haldol 10mg PO daily Synthroid 200mcg PO daily Obtain labs; A1C/POCs Obtain collateral from sister Obtain records from last hospitalization. MOCA Referral for [facility] services if patient is agreeable. encourage medication compliance;consider [facility] discharge planning 09/11: Elevated fasting blood sugar elevated hemoglobin A1c 9.2 med consult placed put in point of care needed will start metformin Would benefit from clarity over recent hospitalization what this were done details regarding treatment continue Haldol unclear if patient has Healthcare proxy his [place] was low slowed cognition with poor details in depth at times during blankly regarding making judgments Unclear if any of this relates to past coma or 2 hypothyroidism. He does seem more impaired than when last seen unclear when last imaging was. [facility] regarding diagnostic picture. Patient does remain paranoid blunted suspicious apathetic. He might benefit from longer-term placement if available and appropriate at a later time involved H involvement would be quite helpful 09/12: cont haldol get records ? hcp ? start antidep unclear hx 09/13: Keeping to self. More talkative today. Pt concerned he will be transferred to [facility]. Pt stated, The paper I signed yesterday. Are you going to send me back to the last hospital? That place was horrible . Pt was educated he signed a release of information with Dr. Gonzalez to obtain records from [facility]. Pt was given a copy of the release he signed. Despite this, pt continues to be anxious about being transferred. Pt denies SI/HI/VH/AH. 09/14: Keeping to self. active on unit. showered. Pt reports feeling alright today; pt reports he is worried about where I'm going to go . Pt continues concerned he will be transferred to [facility]. Pt denies SI/HI/VH/AH. 09/15:Pt reports feeling alright today; pt continues to report he is worried about where I'm going to go . Responding with brief responses. Guarded. Observed standing in one place for a long period of time. Appears confused. Pt denies SI/HI/VH/AH. T/W spoke to patient's sister, Ros, with patients verbal consent. Ros reports concerns regarding patients ability to make decisions regarding his mental and physical health. She plans on contacting legal advice on obtaining guardianship of patient. 09/16:Patient's presents similar to yesterday's presentation. Responding with brief responses. Guarded. Observed standing in one place for a long period of time, when asked what he is doing, pt stated, I don't know . Pt reports he plans on contacting his sister today and try to convince her for me to stay there . Pt denies SI/HI/VH/AH. Continue current tx plan. 09/17: brief responses. Guarded. 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 Pt denies SI/HI/VH/AH. T/W and Dr. Gonzalez spoke to patient's sister, Ros. Ros stated being [facility] HCP and plans on finding document. She plans on coming to the hospital on Saturday to be present for [facility] intake. 09/21: No changes 09/22:Patient flat apathetic difficult insight and judgment his sister is healthcare proxy if needed patient is accepting medical treatment Referral to [facility] 09/23:Considers starting Haldol Decanoate patient is agreeable superficially difficulty with exec fx was seen [facility] 09/24:Pt seen in f/u mood flat dysphoric difficulty engaging in conversation preoccupied with thought he wont be living with family thing slowed apathetic no clear response with namenda ? some improvement inc lamictal start low dose sertraline inc lamictal ck tsh 09/25:Start Abilify as augmentation with Haldol see if can be more stimulating regarding depressed mood apathetic limited engagement sertraline 50 mg Lamictal 25 b.i.d. referral to [facility] which would have structure unclear if patient can engage with this he remains quite depressed has delusional beliefs regarding housing and that things have been done he has repeatedly tried to reach out to his sister denies active SI needs much help dressing talking with others encouragement to eat severe thought blocking Abilify might be more stimulating than Haldol which can be more dulling 09/26:Abilify started sertraline Lamictal encouraged step-down to [facility] encourage reality orientation denies active SI 09/27: Continue current regimen and plans 09/28: Continue current regimen and plans. 09/29: Referral to [facility] increase Abilify to 5 mg daily eventually try and taper Haldol sertraline 50 mg daily 09/30:Increase Abilify to 10 mg lower Haldol to 7 mg continue sertraline and Lamictal 10/01:Abilify increased to 10 mg continue to taper Haldol sertraline 100 mg Lamictal increased to 75 mg patient apathetic withdrawn difficulty with placement some paranoia continues difficulty with decision making at times. Not physically aggressive internally preoccupied seems somewhat improved with Abilify sertraline Continue discharge planning 10/02:Patient somewhat blunted flat slowed thinking during the day times staring. Change Abilify to 10 mg at bedtime. Scheduled Haldol will lowered to 2.5 mg Continue sertraline 100 mg Namenda 5 b.i.d. 10/03:Haldol discontinued modafinil low-dose monitor for psychosis or agitation continue discharge planning 10/06: May need to firm healthcare proxy calls have been placed to sister to try to help in discharge planning. Referrals made. Patient cooperative with care 10/07:Pharmacy ordering Abilify maintain a increase modafinil 100 mg patient remains flat passive depressed some improvement noted no current paranoia noted continue discharge planning no current safe discharge plan 10/08: Increase Lamictal 100 mg Abilify Maintena 400 mg hold modafinil unclear if was overly stimulating patient continues to present internally preoccupied. 10/09:Healthcare proxy invoked discharge planning continue Lamictal Abilify pending maintain a 10/10:Healthcare proxy invoked new CV signed discharge planning. 10/11 keep same treatment 10/12 keep same treatment 10/13: Continue plan of care Lamictal Abilify discharge planning sertraline 10/14: stable. continue current mgmt. 10/15: stable. continue current mgmt. 10/16: stable presentation. continue current mgmt. 10/17: as for yesterday. 10/18: no changes. 10/19: stabel, safe. no change. 10/20: no change in presentation. calm, cooperative. active on unit, social with select peers, attending groups. Pt reports feeling alright . denies SI/HI/VH/AH. Social work waiting to hear from possible placement location. Continue current tx plan. 10/21: continue current tx plan. awaiting placement. 10/22: calm, cooperative. active on unit, social with select peers, attending groups. Pt reports feeling good ; pt stated, I'm waiting to see where I'm going . denies SI/HI/VH/AH. Showered with encouragement. 10/23: continue current tx plan. 10/24: calm, cooperative. active on unit, social with select peers, attending groups. Pt reports feeling good ; pt stated, I just want a place to live . 10/25- likely at baseline for him- CTP 10/26 CTP likely needs placement 10/27: continue current tx plan. awaiting placement. 10/28: Similar to yesterday. No change in presentation. 10/29: Pt reports feeling good ;pt stated, just waiting for a place to live . denies any issues at this time. 10/30: calm, cooperative. active on unit, social with select peers, attending groups. Pt reports feeling worried about where I am going to live . denies any issues at this time. 10/21: no change in presentation. continue current tx plan. 11/01: continue current management and treatment plan. 11/02: Continue current management and treatment plan. 11/03: Continue current management and treatment plan. 11/04: Active on unit. calm, cooperative. social with select peers, attending groups. denies any issues at this time. He reports sleeping well. Pt reports he would be interested in applying for [facility] services; social work aware. 11/05: Active on unit. calm, cooperative. social with select peers, attending groups. denies any issues at this time. Pt reports feeling okay ; he reports anxiety regarding placement. Continue current tx plan. 11/07/23 [facility] referral has appropriate concerns re living stuation cont abilify lamictal 11/08/23 Pt cooperative with care d/c planning working with cont d/c planning cont lamictal abilify 11/12/23 Patient increasingly despairing aware of no clear discharge plan periods needs cuing for much functioning limited social engaged needs help regarding diabetes and medication compliance reportedly had been rejected by multiple rest homes patient not threatening intermittently hopeless helpless very limited family contact at this time 11/13/23 pt flat depressed hopeless helpless unable to fx without structure 11/15 continue tx. 11/16 continue tx. 11/18/2023 Continue plan of care referral to [facility] TSH low will decrease levothyroxine 11/19/23 Pt flat dysphor ic inc hopeless helpless lamictal 150 hs dec levothyroxine 150 d/c planning cont 11/20/23 lamictal inc d/c planning [facility] referral 12/02/2023 Continue Lamictal Abilify patient cooperative with care gets despairing at times regarding lack of family support problematic discharge planning in relationship to finding suitable structured place to live 12/02: Social with peers. Per nursing, pt did not sleep last night. Pt reports he did not sleeping because he wasn't tired but feel okay ; ordered Ativan 1mg PO bedtime for tonight, pt aware. 12/03: In bed sleeping, pt reports he is catching up on sleep from the night before. Calm, cooperative. T/W and warehouse worker, Billie, with pt to discuss possibly going to the [facility]. Pt reports he would like to call his sister and speak to her before deciding. DC Ativan. 12/04: Active on unit, social with peers. attending groups. T/W and warehouse worker, Billie, met with pt to discuss discharge plan. Pt reports he doesn't know if he would want to go [place] a [place]; he states he would rather live on the street because I've done it before . Pt encouraged to consider benefits of going to a [place] with the winter months coming; he agreed to doing phone intake with social scientist on Saturday with [facility]. 12/05: Pt presents similar to yesterday. Continues to perseverate about [facility] being a [place] and not a program; He continues to agree to do phone intake on Saturday. Discussed [facility], pt reports he want time to consider d/t not liking needles . 12/08: Pt had phone interview with [facility], however, after multiple attempts at calling them, no one at [facility] picked up the phone to conduct interview. warehouse worker to get into contact with them again. Pt denies any issues at this time. 12/09: Active on unit, social with peers. Pt denies any issues at this time. Patient agreed to receiving Abilify Maintena; risks/benefits reviewed. Waiting on placement. 12/10: Patient received Abilify Maintena yesterday. He denies any side effects. Pleasant. Waiting on placement. 12/11: continue current tx plan. 12/12: similar to days prior. waiting on placement. continue current tx plan. 12/13: appearing more depressed or demoralized. notes lots of people come and go. continue current mgmt. 12/14: same as for yesterday: find me a place to live? continue current mgmt. 12/15: out and about more. otherwise stable. continue current mgmt. 12/16: continue current tx plan. 12/17: continue current tx plan. 12/18: awaiting placement. denies any issues. 12/19: Pt reports feeling alright ; Social work continues to work on placement. Pt denies any issues at this time. Pt reports sleeping well. 12/20: Continue plan of care 12/21: Continue plan of care 12/22: continue current tx plan. 12/23: continue tx plan. 12/24: continue tx plan. 12/25: similar to days prior. waiting on placement. 12/26: Continue current tx plan. 12/27: Continue current management and treatment plan. 12/28: Continue current management and treatment plan. 12/29: In bed, tested positive for Covid. Vomited x1 per nursing. Pt reports feeling okay ; sleeping most of shift. Continue current tx plan. 12/30: Pt reports feeling okay ; continues on isolation d/t being Covid positive. Utilizing IPad. Pt reports sleeping well. denies SI/HI/VH/AH. Has not vomited today. 12/31: Pt reports feeling alright ; pt stated, I still have a stuffy nose, cough and headache but I'm starting to feel better . continues on isolation. denies other issues at this time. Continue current tx plan. 01/01: pt reports covid symptoms are improving. continues waiting on placement. 01/02: Continue tx plan. 01/05/24: no changes. 01/05: Active on unit. Pt reports feeling okay today; denies any issues at this time. pt had meeting with [facility] to be placed on list for temporary placement; pt declined. Dr. Gonzalez to speak to patient regarding this. 01/06: Discussed placement; pt reports he is thinking about saying yes to the motel . pt reports he does not believe his sister or social scientist that he has money saved in the bank. Pt believes if he left to go to the motel he would be stuck there with no money . Social work to discuss with pt. 01/07: Active on unit. social with peers. denies any issues. Pt reports feeling okay ; reports he is still thinking about where he will go after discharge. 01/08: waiting on placement. continue current tx plan. 01/09: Patient continues to wait on placement. 119: Continue current management and treatment plan. 03/13: Continue current management and treatment plan. 01/12: waiting on placement. 01/13: continue current tx plan. 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 noted on the unit to fixate on certain female peers. 01/24 continues with impaired insight/judgement- risk to others requiring inpatient and 1;1 01/25 given poor insight and stalking behavior continues to need inpt level of stay Plan 1. Continue with same treatment. 2. Waiting for placement Reason for continued inpatient stay Substantial Risk for: inability to function, rapid decompensation and med/psych decompensation Time Spent With Patient Time: Total time managing care of this patient today __20__ minutes.
[2024-01-27] MEDS: metFORMIN HCl ER 500 MG TAB.ER.24H 1000 MG PO (16:35)
[2024-01-27 20:00] VITALS: BP 127/75; PULSE 81; RESP 16; TEMP 36.6; O2SAT 96
[2024-01-27] MEDS: traZODone HCL 50 MG TABLET PO (22:23)
[2024-01-27] MEDS: lamoTRIgine 100 MG TABLET 150 MG PO (22:25)
[2024-01-27] MEDS: Insulin Glargine,Hum.rec.anlog 100 UNIT/ML 10 ML VIAL 20 UNIT SUBCUT (22:27)
[2024-01-28] MEDS: Levothyroxine Sodium 150 MCG TABLET PO (05:34)
[2024-01-28 06:01] LABS: Glucose, Whole Blood 127 mg/dL (60-115)
[2024-01-28 08:00] VITALS: BP 123/76; PULSE 84; RESP 18; TEMP 36.6; O2SAT 95
--- NOTE | 2024-01-28 08:26 | P.PNPSI_ITS ---
Subjective Subjective Date of Service: 01/28/24 Reason For Visit: paranoia cognitive impairment Subjective Notes: Conditional Voluntary Interim History: The nursing staff reported the patient had been sociable, playing cards with his roommate watching TV still intrusive at times but redirectable pleasant. Denies new symptoms. Fasting blood sugars today at 01:27 slept 8 hours. On interview the patient denies new symptoms waiting for placement. Mental Status Exam Mental Status Exam Patient Appearance: Appropriate Patient Orientation: Person Level of Consciousness: Awake and Appropriate Patient Behavior: Cooperative and Passive Mood Description: Calm Affect Description: Constricted Patient Cognition Impaired: Yes Ability to Follow Directions: Good Speech Pattern: Clear 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: None Delusions: Not Present Thought Process: Distracted and Slowed Thinking Thought Content: positive for [place] and positive for Poverty of Content Judgement: Poor Diagnostics Vital Signs (24Hr): Vital Signs - 24 hr 01/27/24 20:00 01/28/24 08:00 Temperature 98 F 97.8 F Pulse Rate 81 84 Respiratory Rate 16 18 Blood Pressure 127/75 123/76 Pulse Oximetry 96 95 Oxygen Delivery Method Room Air Room Air BMI result Body Mass Index 32.2 Labs 09/10/23 20:00 01/23/24 10:28 Labs: Laboratory Results - last 48 hr 01/27/24 01/28/24 06:47 05:56 POC Glucose 145 H 127 H Imaging Radiology Impressions: ITS Impressions Brain MRI 09/19/23 20:33 IMPRESSION: 1. No demonstrated acute intracranial abnormalities. 2. Chronic mild to moderate nonspecific white matter changes, most notably in the deep white matter of the right frontal lobe. Mild to moderate generalized cerebral volume loss. Medications Medications Current Medications Acetaminophen (Acetaminophen 325 Mg Tablet) 650 mg PO Q6H PRN PRN Reason: Headache/Pain Mild Scale (1-3) Last Admin: 01/01/24 08:45 Dose: 650 mg Al Hydroxide/Mg Hydroxide (Magnesium Hydrox/Alum Hydrox 30 Ml Oral.Susp) 30 ml PO Q6H PRN PRN Reason: Heartburn/Nausea Last Admin: 11/27/23 10:48 Dose: 30 ml Aripiprazole (Aripiprazole Er 300 Mg Suser.Syr) 300 mg IM Q28D@0900 MANAS Last Admin: 01/08/24 09:00 Dose: 300 mg Benzocaine (Throat Lozenge, Medicated Lozenge) 1 lozenge MUCOUS MEM Q2H PRN PRN Reason: Sore Throat Last Admin: 12/30/23 20:59 Dose: 1 lozenge Benztropine Mesylate (Benztropine Mesylate 0.5 Mg Tablet) 0.5 mg PO TID PRN PRN Reason: Extrapyramidal Effects Glucose (Glucose Gel 15 Gm Gel..Gram.) 15 gm PO Q15M PRN; Protocol PRN Reason: per Hypoglycemia Standing Ord. Guaifenesin/Dextromethorphan (Guaifenesin Dm 100/10/5 Ml 5 Ml Syrup) 5 ml PO Q4H PRN PRN Reason: Cough Last Admin: 01/06/24 22:48 Dose: 5 ml Hydroxyzine HCl (Hydroxyzine Hcl 25 Mg Tablet) 25 mg PO Q6H PRN PRN Reason: Anxiety Last Admin: 01/23/24 20:44 Dose: 25 mg Dextrose (D10) 250 mls @ 750 mls/hr IV Q15M PRN; Protocol PRN Reason: per Hypoglycemia Standing Ord. Insulin Glargine (Insulin Glargine,Hum.Rec.Anlog 100 Unit/Ml 10 Ml Vial) 20 unit SUBCUT BEDTIME [facility] Last Admin: 01/27/24 22:27 Dose: 20 unit Lamotrigine (Lamotrigine 100 Mg Tablet) 150 mg PO BEDTIME [facility] Last Admin: 01/27/24 22:25 Dose: 150 mg Levothyroxine Sodium (Levothyroxine Sodium 150 Mcg Tablet) 150 mcg PO DAILY@0630 [facility] Last Admin: 01/28/24 05:34 Dose: 150 mcg Magnesium Hydroxide (Milk Of Magnesia 30 Ml Oral.Susp) 30 ml PO DAILY PRN PRN Reason: Constipation Memantine (Memantine Hcl 5 Mg Tablet) 5 mg PO BID [facility] Last Admin: 01/27/24 22:23 Dose: 5 mg Metformin HCl (Metformin Hcl Er 500 Mg Tab.Er.24h) 1,000 mg PO DAILY@1700 [facility] Last Admin: 01/27/24 16:35 Dose: 1,000 mg Ondansetron HCl (Ondansetron Odt 8 Mg Tab.Rapdis) 8 mg TRANSLINGU Q8H PRN PRN Reason: Nausea and Vomiting Last Admin: 12/31/23 08:39 Dose: 8 mg Sertraline HCl (Sertraline Hcl 50 Mg Tablet) 50 mg PO DAILY MANAS Last Admin: 01/27/24 08:49 Dose: 50 mg Simethicone (Simethicone 80 Mg Tab.Chew) 80 mg PO QIDWMHS PRN PRN Reason: Gas Trazodone HCl (Trazodone Hcl 50 Mg Tablet) 50 mg PO BEDTIME MRX1 PRN PRN Reason: Insomnia Last Admin: 01/27/24 22:23 Dose: 50 mg Allergies Allergies Allergy/AdvReac Type Severity Reaction Status Date / Time amoxicillin [AMOXICILLIN] Allergy Mild VOMITING/ABD Verified 09/10/23 19:44 PAIN Assessment & Plan Assessment & Plan (1) Schizoaffective disorder: Status: Acute Code(s): F25.9 - Schizoaffective disorder, unspecified (2) Hypothyroidism: Status: Acute Code(s): E03.9 - Hypothyroidism, unspecified (3) Type 2 diabetes mellitus: Status: Acute Code(s): E11.9 - Type 2 diabetes mellitus without complications (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 Plan: CV 15 minute safety checks Continue home medications: Haldol 10mg PO daily Synthroid 200mcg PO daily Obtain labs; A1C/POCs Obtain collateral from sister Obtain records from last hospitalization. MOCA Referral for [facility] services if patient is agreeable. encourage medication compliance;consider VARGAS discharge planning 09/11: Elevated fasting blood sugar elevated hemoglobin A1c 9.2 med consult placed put in point of care needed will start metformin Would benefit from clarity over recent hospitalization what this were done details regarding treatment continue Haldol unclear if patient has Healthcare proxy his [place] was low slowed cognition with poor details in depth at times during blankly regarding making judgments Unclear if any of this relates to past coma or 2 hypothyroidism. He does seem more impaired than when last seen unclear when last imaging was. Continue Haldol [facility] neuro indira involvement regarding diagnostic picture. Patient does remain paranoid blunted suspicious apathetic. He might benefit from longer- term placement if available and appropriate at a later time involved H involvement would be quite helpful 09/12: cont haldol get records ? hcp ? start antidep unclear hx 09/13: Keeping to self. More talkative today. Pt concerned he will be transferred to [facility]. Pt stated, The paper I signed yesterday. Are you going to send me back to the last hospital? That place was horrible . Pt was educated he signed a release of information with Dr. Gonzalez to obtain records from [facility]. Pt was given a copy of the release he signed. Despite this, pt continues to be anxious about being transferred. Pt denies SI/HI/VH/AH. 09/14: Keeping to self. active on unit. showered. Pt reports feeling alright today; pt reports he is worried about where I'm going to go . Pt continues concerned he will be transferred to [facility]. Pt denies SI/HI/VH/AH. 09/15:Pt reports feeling alright today; pt continues to report he is worried about where I'm going to go . Responding with brief responses. Guarded. Observed standing in one place for a long period of time. Appears confused. Pt denies SI/HI/VH/AH. T/W spoke to patient's sister, Ros, with patients verbal consent. Ros reports concerns regarding patients ability to make decisions regarding his mental and physical health. She plans on contacting legal advice on obtaining guardianship of patient. 09/16:Patient's presents similar to yesterday's presentation. Responding with brief responses. Guarded. Observed standing in one place for a long period of time, when asked what he is doing, pt stated, I don't know . Pt reports he plans on contacting his sister today and try to convince her for me to stay there . Pt denies SI/HI/VH/AH. Continue current tx plan. 09/17: brief responses. Guarded. 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 Pt denies SI/HI/VH/AH. T/W and Dr. Gonzalez spoke to patient's sister, Ros. Ros stated being [facility] HCP and plans on finding document. She plans on coming to the hospital on Saturday to be present for [facility] intake. 09/21: No changes 09/22:Patient flat apathetic difficult insight and judgment his sister is healthcare proxy if needed patient is accepting medical treatment Referral to [facility] 09/23:Considers starting Haldol Decano[place] patient is agreeable superficially difficulty with exec fx was seen [facility] 09/24:Pt seen in f/u mood flat dysphoric difficulty engaging in conversation preoccupied with thought he wont be living with family thing slowed apathetic no clear response with namenda ? some improvement inc lamictal start low dose sertraline inc lamictal ck tsh 09/25:Start Abilify as augmentation with Haldol see if can be more stimulating regarding depressed mood apathetic limited engagement sertraline 50 mg Lamictal 25 b.i.d. referral to [facility] which would have structure unclear if patient can engage with this he remains quite depressed has delusional beliefs regarding housing and that things have been done he has repeatedly tried to reach out to his sister denies active SI needs much help dressing talking with others encouragement to eat severe thought blocking Abilify might be more stimulating than Haldol which can be more dulling 09/26:Abilify started sertraline Lamictal encouraged step-down to [facility] encourage reality orientation denies active SI 09/27: Continue current regimen and plans 09/28: Continue current regimen and plans. 09/29: Referral to [facility] increase Abilify to 5 mg daily eventually try and taper Haldol sertraline 50 mg daily 09/30:Increase Abilify to 10 mg lower Haldol to 7 mg continue sertraline and Lamictal 10/01:Abilify increased to 10 mg continue to taper Haldol sertraline 100 mg Lamictal increased to 75 mg patient apathetic withdrawn difficulty with placement some paranoia continues difficulty with decision making at times. Not physically aggressive internally preoccupied seems somewhat improved with Abilify sertraline Continue discharge planning 10/02:Patient somewhat blunted flat slowed thinking during the day times staring. Change Abilify to 10 mg at bedtime. Scheduled Haldol will lowered to 2.5 mg Continue sertraline 100 mg Namenda 5 b.i.d. 10/03:Haldol discontinued modafinil low-dose monitor for psychosis or agitation continue discharge planning 10/06: May need to firm healthcare proxy calls have been placed to sister to try to help in discharge planning. Referrals made. Patient cooperative with care 10/07:Pharmacy ordering Abilify maintain a increase modafinil 100 mg patient remains flat passive depressed some improvement noted no current paranoia noted continue discharge planning no current safe discharge plan 10/08: Increase Lamictal 100 mg Abilify Maintena 400 mg hold modafinil unclear if was overly stimulating patient continues to present internally preoccupied. 10/09:Healthcare proxy invoked discharge planning continue Lamictal Abilify pending maintain a 10/10:Healthcare proxy invoked new CV signed discharge planning. 10/11 keep same treatment 10/12 keep same treatment 10/13: Continue plan of care Lamictal Abilify discharge planning sertraline 10/14: stable. continue current mgmt. 10/15: stable. continue current mgmt. 10/16: stable presentation. continue current mgmt. 10/17: as for yesterday. 10/18: no changes. 10/19: stabel, safe. no change. 10/20: no change in presentation. calm, cooperative. active on unit, social with select peers, attending groups. Pt reports feeling alright . denies SI/HI/VH/AH. Social work waiting to hear from possible placement location. Continue current tx plan. 10/21: continue current tx plan. awaiting placement. 10/22: calm, cooperative. active on unit, social with select peers, attending groups. Pt reports feeling good ; pt stated, I'm waiting to see where I'm going . denies SI/HI/VH/AH. Showered with encouragement. 10/23: continue current tx plan. 10/24: calm, cooperative. active on unit, social with select peers, attending groups. Pt reports feeling good ; pt stated, I just want a place to live . 10/25- likely at baseline for him- CTP 10/26 CTP likely needs placement 10/27: continue current tx plan. awaiting placement. 10/28: Similar to yesterday. No change in presentation. 10/29: Pt reports feeling good ;pt stated, just waiting for a place to live . denies any issues at this time. 10/30: calm, cooperative. active on unit, social with select peers, attending groups. Pt reports feeling worried about where I am going to live . denies any issues at this time. 10/21: no change in presentation. continue current tx plan. 11/01: continue current management and treatment plan. 11/02: Continue current management and treatment plan. 11/03: Continue current management and treatment plan. 11/04: Active on unit. calm, cooperative. social with select peers, attending groups. denies any issues at this time. He reports sleeping well. Pt reports he would be interested in applying for [facility] services; social work aware. 11/05: Active on unit. calm, cooperative. social with select peers, attending groups. denies any issues at this time. Pt reports feeling okay ; he reports anxiety regarding placement. Continue current tx plan. 11/07/23 DM referral has appropriate concerns re living stuation cont abilify lamictal 11/08/23 Pt cooperative with care d/c planning working with cont d/c planning cont lamictal abilify 11/12/23 Patient increasingly despairing aware of no clear discharge plan periods needs cuing for much functioning limited social engaged needs help regarding diabetes and medication compliance reportedly had been rejected by multiple rest homes patient not threatening intermittently hopeless helpless very limited family contact at this time 11/13/23 pt flat depressed hopeless helpless unable to fx without structure 11/15 continue tx. 11/16 continue tx. 11/18/2023 Continue plan of care referral to [facility] TSH low will decrease levothyroxine 11/19/23 Pt flat dysphor ic inc hopeless helpless lamictal 150 hs dec levothyroxine 150 d/c planning cont 11/20/23 lamictal inc d/c planning h referral 12/02/2023 Continue Lamictal Abilify patient cooperative with care gets despairing at times regarding lack of family support problematic discharge planning in relationship to finding suitable structured place to live 12/02: Social with peers. Per nursing, pt did not sleep last night. Pt reports he did not sleeping because he wasn't tired but feel okay ; ordered Ativan 1mg PO bedtime for tonight, pt aware. 12/03: In bed sleeping, pt reports he is catching up on sleep from the night before. Calm, cooperative. T/W and picking table worker, Billie, with pt to discuss possibly going to the [facility]. Pt reports he would like to call his sister and speak to her before deciding. DC Ativan. 12/04: Active on unit, social with peers. attending groups. T/W and picking table worker, Billie, met with pt to discuss discharge plan. Pt reports he doesn't know if he would want to go to a homeless senior living; he states he would rather live on the street because I've done it before . Pt encouraged to consider benefits of going to a senior living with the winter months coming; he agreed to doing phone intake with geriatric social work professor on Saturday with [facility]. 12/05: Pt presents similar to yesterday. Continues to perseverate about [facility] being a senior living and not a program; He continues to agree to do phone intake on Saturday. Discussed VARGAS, pt reports he want time to consider d/t not liking needles . 12/08: Pt had phone interview with [facility], however, after multiple attempts at calling them, no one at [facility] picked up the phone to conduct interview. picking table worker to get into contact with them again. Pt denies any issues at this time. 12/09: Active on unit, social with peers. Pt denies any issues at this time. Patient agreed to receiving Abilify Maintena; risks/benefits reviewed. Waiting on placement. 12/10: Patient received Abilify Maintena yesterday. He denies any side effects. Pleasant. Waiting on placement. 12/11: continue current tx plan. 12/12: similar to days prior. waiting on placement. continue current tx plan. 12/13: appearing more depressed or demoralized. notes lots of people come and go. continue current mgmt. 12/14: same as for yesterday: find me a place to live? continue current mgmt. 12/15: out and about more. otherwise stable. continue current mgmt. 15: continue current tx plan. 12/17: continue current tx plan. 12/18: awaiting placement. denies any issues. 12/19: Pt reports feeling alright ; Social work continues to work on placement. Pt denies any issues at this time. Pt reports sleeping well. 12/20: Continue plan of care 12/21: Continue plan of care 12/22: continue current tx plan. 12/23: continue tx plan. 12/24: continue tx plan. 12/25: similar to days prior. waiting on placement. 12/26: Continue current tx plan. 12/27: Continue current management and treatment plan. 12/28: Continue current management and treatment plan. 12/29: In bed, tested positive for Covid. Vomited x1 per nursing. Pt reports feeling okay ; sleeping most of shift. Continue current tx plan. 12/30: Pt reports feeling okay ; continues on isolation d/t being Covid positive. Utilizing IPad. Pt reports sleeping well. denies SI/HI/VH/AH. Has not vomited today. 12/31: Pt reports feeling alright ; pt stated, I still have a stuffy nose, cough and headache but I'm starting to feel better . continues on isolation. denies other issues at this time. Continue current tx plan. 01/01: pt reports covid symptoms are improving. continues waiting on placement. 01/02: Continue tx plan. 01/05/24: no changes. 01/05: Active on unit. Pt reports feeling okay today; denies any issues at this time. pt had meeting with [facility] to be placed on list for temporary placement; pt declined. Dr. Gonzalez to speak to patient regarding this. 01/06: Discussed placement; pt reports he is thinking about saying yes to the motel . pt reports he does not believe his sister or geriatric social work professor that he has money saved in the bank. Pt believes if he left to go to the motel he would be stuck there with no money . Social work to discuss with pt. 01/07: Active on unit. social with peers. denies any issues. Pt reports feeling okay ; reports he is still thinking about where he will go after discharge. 01/08: waiting on placement. continue current tx plan. 01/09: Patient continues to wait on placement. 119: Continue current management and treatment plan. 03/13: Continue current management and treatment plan. 01/12: waiting on placement. 01/13: continue current tx plan. 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 noted on the unit to fixate on certain female peers. 01/24 continues with impaired insight/judgement- risk to others requiring inpatient and 1;1 01/25 given poor insight and stalking behavior continues to need inpt level of stay Plan 1. Continue with same treatment. 2. Waiting for placement Reason for continued inpatient stay Substantial Risk for: inability to function, rapid decompensation and med/psych decompensation Time Spent With Patient Time: Total time managing care of this patient today __20__ minutes.
[2024-01-28] MEDS: Sertraline HCL 50 MG TABLET PO (08:38)
[2024-01-28] MEDS: Memantine HCl 5 MG TABLET PO ×2 (08:38→21:01)
[2024-01-28] MEDS: metFORMIN HCl ER 500 MG TAB.ER.24H 1000 MG PO (16:39)
[2024-01-28 20:00] VITALS: BP 138/84; PULSE 76; RESP 16; TEMP 36.1; O2SAT 94
[2024-01-28] MEDS: Insulin Glargine,Hum.rec.anlog 100 UNIT/ML 10 ML VIAL 20 UNIT SUBCUT (21:01)
[2024-01-28] MEDS: lamoTRIgine 100 MG TABLET 150 MG PO (21:01)
[2024-01-28 21:08] LABS: Glucose, Whole Blood 106 mg/dL (60-115)
[2024-01-29] MEDS: Levothyroxine Sodium 150 MCG TABLET PO (05:14)
[2024-01-29 05:22] LABS: Glucose, Whole Blood 164 mg/dL (60-115)
[2024-01-29 07:40] LABS: Glucose, Whole Blood 117 mg/dL (60-115)
[2024-01-29 08:00] VITALS: BP 124/69; PULSE 76; RESP 16; TEMP 36.8; O2SAT 96
[2024-01-29] MEDS: Memantine HCl 5 MG TABLET PO ×2 (08:00→20:29)
[2024-01-29] MEDS: Sertraline HCL 50 MG TABLET PO (08:00)
--- NOTE | 2024-01-29 14:07 | HO.PSYCHPN ---
Subjective Subjective Date of Service: 01/29/24 Reason For Visit: paranoia cognitive impairment Subjective Notes: Conditional Voluntary Interim History: The nursing staff reported the patient had been compliant with treatment slept 7 hours. On interview the patient denies new symptoms, waiting for placement. Mental Status Exam Mental Status Exam Patient Appearance: Appropriate Patient Orientation: Person and Situation Level of Consciousness: Awake and Appropriate Patient Behavior: Guarded and Passive Mood Description: Withdrawn Affect Description: Constricted Patient Cognition Impaired: Yes Ability to Follow Directions: Good Speech Pattern: Clear 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: None Delusions: Not Present Thought Process: Distracted and Slowed Thinking Thought Content: positive for [place] and positive for Poverty of Content Judgement: Fair Diagnostics Vital Signs (24Hr): Vital Signs - 24 hr 01/28/24 20:00 01/29/24 08:00 Temperature 97 F 98.3 F Pulse Rate 76 76 Respiratory Rate 16 16 Blood Pressure 138/84 124/69 Pulse Oximetry 94 96 Oxygen Delivery Method Room Air Room Air BMI result Body Mass Index 32.2 Labs 09/10/23 20:00 01/23/24 10:28 Labs: Laboratory Results - last 48 hr 01/28/24 01/28/24 01/29/24 05:56 21:04 05:17 POC Glucose 127 H 106 164 H 01/29/24 07:36 POC Glucose 117 H Imaging Radiology Impressions: ITS Impressions Brain MRI 09/19/23 20:33 IMPRESSION: 1. No demonstrated acute intracranial abnormalities. 2. Chronic mild to moderate nonspecific white matter changes, most notably in the deep white matter of the right frontal lobe. Mild to moderate generalized cerebral volume loss. Medications Medications Current Medications Acetaminophen (Acetaminophen 325 Mg Tablet) 650 mg PO Q6H PRN PRN Reason: Headache/Pain Mild Scale (1-3) Last Admin: 01/01/24 08:45 Dose: 650 mg Al Hydroxide/Mg Hydroxide (Magnesium Hydrox/Alum Hydrox 30 Ml Oral.Susp) 30 ml PO Q6H PRN PRN Reason: Heartburn/Nausea Last Admin: 11/27/23 10:48 Dose: 30 ml Aripiprazole (Aripiprazole Er 300 Mg Suser.Syr) 300 mg IM Q28D@0900 MANAS Last Admin: 01/08/24 09:00 Dose: 300 mg Benzocaine (Throat Lozenge, Medicated Lozenge) 1 lozenge MUCOUS MEM Q2H PRN PRN Reason: Sore Throat Last Admin: 12/30/23 20:59 Dose: 1 lozenge Benztropine Mesylate (Benztropine Mesylate 0.5 Mg Tablet) 0.5 mg PO TID PRN PRN Reason: Extrapyramidal Effects Glucose (Glucose Gel 15 Gm Gel..Gram.) 15 gm PO Q15M PRN; Protocol PRN Reason: per Hypoglycemia Standing Ord. Guaifenesin/Dextromethorphan (Guaifenesin Dm 100/10/5 Ml 5 Ml Syrup) 5 ml PO Q4H PRN PRN Reason: Cough Last Admin: 01/06/24 22:48 Dose: 5 ml Hydroxyzine HCl (Hydroxyzine Hcl 25 Mg Tablet) 25 mg PO Q6H PRN PRN Reason: Anxiety Last Admin: 01/23/24 20:44 Dose: 25 mg Dextrose (D10) 250 mls @ 750 mls/hr IV Q15M PRN; Protocol PRN Reason: per Hypoglycemia Standing Ord. Insulin Glargine (Insulin Glargine,Hum.Rec.Anlog 100 Unit/Ml 10 Ml Vial) 20 unit SUBCUT BEDTIME [facility] Last Admin: 01/28/24 21:01 Dose: 20 unit Lamotrigine (Lamotrigine 100 Mg Tablet) 150 mg PO BEDTIME [facility] Last Admin: 01/28/24 21:01 Dose: 150 mg Levothyroxine Sodium (Levothyroxine Sodium 150 Mcg Tablet) 150 mcg PO DAILY@0630 [facility] Last Admin: 01/29/24 05:14 Dose: 150 mcg Magnesium Hydroxide (Milk Of Magnesia 30 Ml Oral.Susp) 30 ml PO DAILY PRN PRN Reason: Constipation Memantine (Memantine Hcl 5 Mg Tablet) 5 mg PO BID [facility] Last Admin: 01/29/24 08:00 Dose: 5 mg Metformin HCl (Metformin Hcl Er 500 Mg Tab.Er.24h) 1,000 mg PO DAILY@1700 [facility] Last Admin: 01/28/24 16:39 Dose: 1,000 mg Ondansetron HCl (Ondansetron Odt 8 Mg Tab.Rapdis) 8 mg TRANSLINGU Q8H PRN PRN Reason: Nausea and Vomiting Last Admin: 12/31/23 08:39 Dose: 8 mg Sertraline HCl (Sertraline Hcl 50 Mg Tablet) 50 mg PO DAILY [facility] Last Admin: 01/29/24 08:00 Dose: 50 mg Simethicone (Simethicone 80 Mg Tab.Chew) 80 mg PO QIDWMHS PRN PRN Reason: Gas Trazodone HCl (Trazodone Hcl 50 Mg Tablet) 50 mg PO BEDTIME MRX1 PRN PRN Reason: Insomnia Last Admin: 01/27/24 22:23 Dose: 50 mg Allergies Allergies Allergy/AdvReac Type Severity Reaction Status Date / Time amoxicillin [AMOXICILLIN] Allergy Mild VOMITING/ABD Verified 09/10/23 19:44 PAIN Assessment & Plan Assessment & Plan (1) Schizoaffective disorder: Status: Acute Code(s): F25.9 - Schizoaffective disorder, unspecified (2) Hypothyroidism: Status: Acute Code(s): E03.9 - Hypothyroidism, unspecified (3) Type 2 diabetes mellitus: Status: Acute Code(s): E11.9 - Type 2 diabetes mellitus without complications (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 Plan: CV 15 minute safety checks Continue home medications: Haldol 10mg PO daily Synthroid 200mcg PO daily Obtain labs; A1C/POCs Obtain collateral from sister Obtain records from last hospitalization. MOCA Referral for [facility] services if patient is agreeable. encourage medication compliance;consider VARGAS discharge planning 09/11: Elevated fasting blood sugar elevated hemoglobin A1c 9.2 med consult placed put in point of care needed will start metformin Would benefit from clarity over recent hospitalization what this were done details regarding treatment continue Haldol unclear if patient has Healthcare proxy his [place] was low slowed cognition with poor details in depth at times during blankly regarding making judgments Unclear if any of this relates to past coma or 2 hypothyroidism. He does seem more impaired than when last seen unclear when last imaging was. Continue Haldol sitter neuro indira involvement regarding diagnostic picture. Patient does remain paranoid blunted suspicious apathetic. He might benefit from longer-term placement if available and appropriate at a later time involved H involvement would be quite helpful 09/12: cont haldol get records ? hcp ? start antidep unclear hx 09/13: Keeping to self. More talkative today. Pt concerned he will be transferred to [facility]. Pt stated, The paper I signed yesterday. Are you going to send me back to the last hospital? That place was horrible . Pt was educated he signed a release of information with Dr. Gonzalez to obtain records from [facility]. Pt was given a copy of the release he signed. Despite this, pt continues to be anxious about being transferred. Pt denies SI/HI/VH/AH. 09/14: Keeping to self. active on unit. showered. Pt reports feeling alright today; pt reports he is worried about where I'm going to go . Pt continues concerned he will be transferred to [facility]. Pt denies SI/HI/VH/AH. 09/15:Pt reports feeling alright today; pt continues to report he is worried about where I'm going to go . Responding with brief responses. Guarded. Observed standing in one place for a long period of time. Appears confused. Pt denies SI/HI/VH/AH. T/W spoke to patient's sister, Ros, with patients verbal consent. Ros reports concerns regarding patients ability to make decisions regarding his mental and physical health. She plans on contacting legal advice on obtaining guardianship of patient. 09/16:Patient's presents similar to yesterday's presentation. Responding with brief responses. Guarded. Observed standing in one place for a long period of time, when asked what he is doing, pt stated, I don't know . Pt reports he plans on contacting his sister today and try to convince her for me to stay there . Pt denies SI/HI/VH/AH. Continue current tx plan. 09/17: brief responses. Guarded. 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 Pt denies SI/HI/VH/AH. T/W and Dr. Gonzalez spoke to patient's sister, Ros. Ros stated being [facility] HCP and plans on finding document. She plans on coming to the hospital on Saturday to be present for [facility] intake. 09/21: No changes 09/22:Patient flat apathetic difficult insight and judgment his sister is healthcare proxy if needed patient is accepting medical treatment Referral to [facility] 09/23:Considers starting Haldol Decanoate patient is agreeable superficially difficulty with exec fx was seen [facility] 09/24:Pt seen in f/u mood flat dysphoric difficulty engaging in conversation preoccupied with thought he wont be living with family thing slowed apathetic no clear response with namenda ? some improvement inc lamictal start low dose sertraline inc lamictal ck tsh 09/25:Start Abilify as augmentation with Haldol see if can be more stimulating regarding depressed mood apathetic limited engagement sertraline 50 mg Lamictal 25 b.i.d. referral to [facility] which would have structure unclear if patient can engage with this he remains quite depressed has delusional beliefs regarding housing and that things have been done he has repeatedly tried to reach out to his sister denies active SI needs much help dressing talking with others encouragement to eat severe thought blocking Abilify might be more stimulating than Haldol which can be more dulling 09/26:Abilify started sertraline Lamictal encouraged step-down to [facility] encourage reality orientation denies active SI 09/27: Continue current regimen and plans 09/28: Continue current regimen and plans. 09/29: Referral to [facility] increase Abilify to 5 mg daily eventually try and taper Haldol sertraline 50 mg daily 09/30:Increase Abilify to 10 mg lower Haldol to 7 mg continue sertraline and Lamictal 10/01:Abilify increased to 10 mg continue to taper Haldol sertraline 100 mg Lamictal increased to 75 mg patient apathetic withdrawn difficulty with placement some paranoia continues difficulty with decision making at times. Not physically aggressive internally preoccupied seems somewhat improved with Abilify sertraline Continue discharge planning 10/02:Patient somewhat blunted flat slowed thinking during the day times staring. Change Abilify to 10 mg at bedtime. Scheduled Haldol will lowered to 2.5 mg Continue sertraline 100 mg Namenda 5 b.i.d. 10/03:Haldol discontinued modafinil low-dose monitor for psychosis or agitation continue discharge planning 10/06: May need to firm healthcare proxy calls have been placed to sister to try to help in discharge planning. Referrals made. Patient cooperative with care 10/07:Pharmacy ordering Abilify maintain a increase modafinil 100 mg patient remains flat passive depressed some improvement noted no current paranoia noted continue discharge planning no current safe discharge plan 10/08: Increase Lamictal 100 mg Abilify Maintena 400 mg hold modafinil unclear if was overly stimulating patient continues to present internally preoccupied. 10/09:Healthcare proxy invoked discharge planning continue Lamictal Abilify pending maintain a 10/10:Healthcare proxy invoked new CV signed discharge planning. 10/11 keep same treatment 10/12 keep same treatment 10/13: Continue plan of care Lamictal Abilify discharge planning sertraline 10/14: stable. continue current mgmt. 10/15: stable. continue current mgmt. 10/16: stable presentation. continue current mgmt. 10/17: as for yesterday. 10/18: no changes. 10/19: stabel, safe. no change. 10/20: no change in presentation. calm, cooperative. active on unit, social with select peers, attending groups. Pt reports feeling alright . denies SI/HI/VH/AH. Social work waiting to hear from possible placement location. Continue current tx plan. 10/21: continue current tx plan. awaiting placement. 10/22: calm, cooperative. active on unit, social with select peers, attending groups. Pt reports feeling good ; pt stated, I'm waiting to see where I'm going . denies SI/HI/VH/AH. Showered with encouragement. 10/23: continue current tx plan. 10/24: calm, cooperative. active on unit, social with select peers, attending groups. Pt reports feeling good ; pt stated, I just want a place to live . 10/25- likely at baseline for him- CTP 10/26 CTP likely needs placement 10/27: continue current tx plan. awaiting placement. 08/27: Similar to yesterday. No change in presentation. 10/29: Pt reports feeling good ;pt stated, just waiting for a place to live . denies any issues at this time. 10/30: calm, cooperative. active on unit, social with select peers, attending groups. Pt reports feeling worried about where I am going to live . denies any issues at this time. 10/21: no change in presentation. continue current tx plan. 11/01: continue current management and treatment plan. 11/02: Continue current management and treatment plan. 11/03: Continue current management and treatment plan. 11/04: Active on unit. calm, cooperative. social with select peers, attending groups. denies any issues at this time. He reports sleeping well. Pt reports he would be interested in applying for [facility] services; social work aware. 11/05: Active on unit. calm, cooperative. social with select peers, attending groups. denies any issues at this time. Pt reports feeling okay ; he reports anxiety regarding placement. Continue current tx plan. 11/07/23 [facility] referral has appropriate concerns re living stuation cont abilify lamictal 11/08/23 Pt cooperative with care d/c planning working with cont d/c planning cont lamictal abilify 11/12/23 Patient increasingly despairing aware of no clear discharge plan periods needs cuing for much functioning limited social engaged needs help regarding diabetes and medication compliance reportedly had been rejected by multiple rest homes patient not threatening intermittently hopeless helpless very limited family contact at this time 11/13/23 pt flat depressed hopeless helpless unable to fx without structure 11/15 continue tx. 11/16 continue tx. 11/18/2023 Continue plan of care referral to [facility] TSH low will decrease levothyroxine 11/19/23 Pt flat dysphor ic inc hopeless helpless lamictal 150 hs dec levothyroxine 150 d/c planning cont 11/20/23 lamictal inc d/c planning [facility] referral 12/02/2023 Continue Lamictal Abilify patient cooperative with care gets despairing at times regarding lack of family support problematic discharge planning in relationship to finding suitable structured place to live 12/02: Social with peers. Per nursing, pt did not sleep last night. Pt reports he did not sleeping because he wasn't tired but feel okay ; ordered Ativan 1mg PO bedtime for tonight, pt aware. 12/03: In bed sleeping, pt reports he is catching up on sleep from the night before. Calm, cooperative. T/W and rehabilitation worker, Billie, with pt to discuss possibly going to the [facility]. Pt reports he would like to call his sister and speak to her before deciding. DC Ativan. 12/04: Active on unit, social with peers. attending groups. T/W and rehabilitation worker, Billie, met with pt to discuss discharge plan. Pt reports he doesn't know if he would want to go to a homeless assisted; he states he would rather live on the street because I've done it before . Pt encouraged to consider benefits of going to a assisted with the winter months coming; he agreed to doing phone intake with social services director on Saturday with [facility]. 12/05: Pt presents similar to yesterday. Continues to perseverate about [facility] being a assisted and not a program; He continues to agree to do phone intake on Saturday. Discussed VARGAS, pt reports he want time to consider d/t not liking needles . 12/08: Pt had phone interview with [facility], however, after multiple attempts at calling them, no one at [facility] picked up the phone to conduct interview. rehabilitation worker to get into contact with them again. Pt denies any issues at this time. 12/09: Active on unit, social with peers. Pt denies any issues at this time. Patient agreed to receiving Abilify Maintena; risks/benefits reviewed. Waiting on placement. 12/10: Patient received Abilify Maintena yesterday. He denies any side effects. Pleasant. Waiting on placement. 12/11: continue current tx plan. 12/12: similar to days prior. waiting on placement. continue current tx plan. 12/13: appearing more depressed or demoralized. notes lots of people come and go. continue current mgmt. 12/14: same as for yesterday: find me a place to live? continue current mgmt. 12/15: out and about more. otherwise stable. continue current mgmt. 12/16: continue current tx plan. 12/17: continue current tx plan. 12/18: awaiting placement. denies any issues. 12/19: Pt reports feeling alright ; Social work continues to work on placement. Pt denies any issues at this time. Pt reports sleeping well. 12/20: Continue plan of care 12/21: Continue plan of care 12/22: continue current tx plan. 12/23: continue tx plan. 12/24: continue tx plan. 12/25: similar to days prior. waiting on placement. 12/26: Continue current tx plan. 12/27: Continue current management and treatment plan. 12/28: Continue current management and treatment plan. 12/29: In bed, tested positive for Covid. Vomited x1 per nursing. Pt reports feeling okay ; sleeping most of shift. Continue current tx plan. 12/30: Pt reports feeling okay ; continues on isolation d/t being Covid positive. Utilizing IPad. Pt reports sleeping well. denies SI/HI/VH/AH. Has not vomited today. 12/31: Pt reports feeling alright ; pt stated, I still have a stuffy nose, cough and headache but I'm starting to feel better . continues on isolation. denies other issues at this time. Continue current tx plan. 01/01: pt reports covid symptoms are improving. continues waiting on placement. 01/02: Continue tx plan. 01/05/24: no changes. 01/05: Active on unit. Pt reports feeling okay today; denies any issues at this time. pt had meeting with [facility] to be placed on list for temporary placement; pt declined. Dr. Gonzalez to speak to patient regarding this. 01/06: Discussed placement; pt reports he is thinking about saying yes to the motel . pt reports he does not believe his sister or social services director that he has money saved in the bank. Pt believes if he left to go to the motel he would be stuck there with no money . Social work to discuss with pt. 01/07: Active on unit. social with peers. denies any issues. Pt reports feeling okay ; reports he is still thinking about where he will go after discharge. 01/08: waiting on placement. continue current tx plan. 01/09: Patient continues to wait on placement. 119: Continue current management and treatment plan. 03/13: Continue current management and treatment plan. 01/12: waiting on placement. 01/13: continue current tx plan. 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 noted on the unit to fixate on certain female peers. 01/24 continues with impaired insight/judgement- risk to others requiring inpatient and 1;1 01/25 given poor insight and stalking behavior continues to need inpt level of stay Plan 1. Continue with same treatment. 2. Waiting for placement Reason for continued inpatient stay Substantial Risk for: inability to function, rapid decompensation and med/psych decompensation Time Spent With Patient Time: Total time managing care of this patient today __20__ minutes.
[2024-01-29] MEDS: metFORMIN HCl ER 500 MG TAB.ER.24H 1000 MG PO (16:45)
[2024-01-29 20:00] VITALS: BP 116/75; PULSE 89; RESP 18; TEMP 36; O2SAT 96
[2024-01-29] MEDS: Insulin Glargine,Hum.rec.anlog 100 UNIT/ML 10 ML VIAL 20 UNIT SUBCUT (20:28)
[2024-01-29] MEDS: lamoTRIgine 100 MG TABLET 150 MG PO (20:28)
[2024-01-29] MEDS: hydrOXYzine HCL 25 MG TABLET PO (23:13)
[2024-01-29] MEDS: traZODone HCL 50 MG TABLET PO (23:13)
[2024-01-30] MEDS: Levothyroxine Sodium 150 MCG TABLET PO (05:55)
[2024-01-30 06:38] LABS: Glucose, Whole Blood 113 mg/dL (60-115)
[2024-01-30 07:00] VITALS: BMI 32.4
[2024-01-30 08:20] LABS: Creatinine Clr Calc Pharmacy 91.5; Estimated Glomerular Filt Rate > 60
[2024-01-30 08:26] VITALS: BP 115/57; PULSE 79; RESP 16; TEMP 36.6; O2SAT 98
[2024-01-30] MEDS: Memantine HCl 5 MG TABLET PO ×2 (08:29→20:54)
[2024-01-30] MEDS: Sertraline HCL 50 MG TABLET PO (08:29)
--- NOTE | 2024-01-30 11:43 | HO.PSYCHPN ---
Subjective Subjective Date of Service: 01/30/24 Reason For Visit: paranoia cognitive impairment Interim History: Patient seen psychiatric follow-up. The patient social engaged Mental Status Exam Mental Status Exam Patient Appearance: Appropriate Patient Orientation: Person and Situation Level of Consciousness: Awake and Appropriate Patient Behavior: Guarded and Passive Mood Description: Withdrawn Affect Description: Constricted Patient Cognition Impaired: Yes Ability to Follow Directions: Good Speech Pattern: Clear 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: None Delusions: Not Present Thought Process: Distracted and Slowed Thinking Thought Content: positive for [place] and positive for Poverty of Content Judgement: Fair Diagnostics Vital Signs (24Hr): Vital Signs - 24 hr 01/29/24 20:00 01/30/24 08:26 Temperature 96.8 F 97.9 F Pulse Rate 89 79 Respiratory Rate 18 16 Blood Pressure 116/75 115/57 L Pulse Oximetry 96 98 Oxygen Delivery Method Room Air Room Air BMI result Body Mass Index 32.2 Labs 09/10/23 20:00 01/30/24 07:28 Labs: Laboratory Results - last 48 hr 01/28/24 01/29/24 01/29/24 21:04 05:17 07:36 Creatinine Estim Creat Clear Calc Estimated GFR POC Glucose 106 164 H 117 H 01/30/24 01/30/24 06:12 07:28 Creatinine 1.00 Estim Creat Clear Calc 91.5 Estimated GFR > 60 POC Glucose 113 Imaging Radiology Impressions: ITS Impressions Brain MRI 09/19/23 20:33 IMPRESSION: 1. No demonstrated acute intracranial abnormalities. 2. Chronic mild to moderate nonspecific white matter changes, most notably in the deep white matter of the right frontal lobe. Mild to moderate generalized cerebral volume loss. Medications Medications Current Medications Acetaminophen (Acetaminophen 325 Mg Tablet) 650 mg PO Q6H PRN PRN Reason: Headache/Pain Mild Scale (1-3) Last Admin: 01/01/24 08:45 Dose: 650 mg Al Hydroxide/Mg Hydroxide (Magnesium Hydrox/Alum Hydrox 30 Ml Oral.Susp) 30 ml PO Q6H PRN PRN Reason: Heartburn/Nausea Last Admin: 11/27/23 10:48 Dose: 30 ml Aripiprazole (Aripiprazole Er 300 Mg Suser.Syr) 300 mg IM Q28D@0900 MANAS Last Admin: 01/08/24 09:00 Dose: 300 mg Benzocaine (Throat Lozenge, Medicated Lozenge) 1 lozenge MUCOUS MEM Q2H PRN PRN Reason: Sore Throat Last Admin: 12/30/23 20:59 Dose: 1 lozenge Benztropine Mesylate (Benztropine Mesylate 0.5 Mg Tablet) 0.5 mg PO TID PRN PRN Reason: Extrapyramidal Effects Glucose (Glucose Gel 15 Gm Gel..Gram.) 15 gm PO Q15M PRN; Protocol PRN Reason: per Hypoglycemia Standing Ord. Guaifenesin/Dextromethorphan (Guaifenesin Dm 100/10/5 Ml 5 Ml Syrup) 5 ml PO Q4H PRN PRN Reason: Cough Last Admin: 01/06/24 22:48 Dose: 5 ml Hydroxyzine HCl (Hydroxyzine Hcl 25 Mg Tablet) 25 mg PO Q6H PRN PRN Reason: Anxiety Last Admin: 01/29/24 23:13 Dose: 25 mg Dextrose (D10) 250 mls @ 750 mls/hr IV Q15M PRN; Protocol PRN Reason: per Hypoglycemia Standing Ord. Insulin Glargine (Insulin Glargine,Hum.Rec.Anlog 100 Unit/Ml 10 Ml Vial) 20 unit SUBCUT BEDTIME [facility] Last Admin: 01/29/24 20:28 Dose: 20 unit Lamotrigine (Lamotrigine 100 Mg Tablet) 150 mg PO BEDTIME [facility] Last Admin: 01/29/24 20:28 Dose: 150 mg Levothyroxine Sodium (Levothyroxine Sodium 150 Mcg Tablet) 150 mcg PO DAILY@0630 [facility] Last Admin: 01/30/24 05:55 Dose: 150 mcg Magnesium Hydroxide (Milk Of Magnesia 30 Ml Oral.Susp) 30 ml PO DAILY PRN PRN Reason: Constipation Memantine (Memantine Hcl 5 Mg Tablet) 5 mg PO BID [facility] Last Admin: 01/30/24 08:29 Dose: 5 mg Metformin HCl (Metformin Hcl Er 500 Mg Tab.Er.24h) 1,000 mg PO DAILY@1700 [facility] Last Admin: 01/29/24 16:45 Dose: 1,000 mg Ondansetron HCl (Ondansetron Odt 8 Mg Tab.Rapdis) 8 mg TRANSLINGU Q8H PRN PRN Reason: Nausea and Vomiting Last Admin: 12/31/23 08:39 Dose: 8 mg Sertraline HCl (Sertraline Hcl 50 Mg Tablet) 50 mg PO DAILY MANAS Last Admin: 01/30/24 08:29 Dose: 50 mg Simethicone (Simethicone 80 Mg Tab.Chew) 80 mg PO QIDWMHS PRN PRN Reason: Gas Trazodone HCl (Trazodone Hcl 50 Mg Tablet) 50 mg PO BEDTIME MRX1 PRN PRN Reason: Insomnia Last Admin: 01/29/24 23:13 Dose: 50 mg Allergies Allergies Allergy/AdvReac Type Severity Reaction Status Date / Time amoxicillin [AMOXICILLIN] Allergy Mild VOMITING/ABD Verified 09/10/23 19:44 PAIN Assessment & Plan Assessment & Plan (1) Schizoaffective disorder: Status: Acute Code(s): F25.9 - Schizoaffective disorder, unspecified (2) Hypothyroidism: Status: Acute Code(s): E03.9 - Hypothyroidism, unspecified (3) Type 2 diabetes mellitus: Status: Acute Code(s): E11.9 - Type 2 diabetes mellitus without complications (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 Plan: CV 15 minute safety checks Continue home medications: Haldol 10mg PO daily Synthroid 200mcg PO daily Obtain labs; A1C/POCs Obtain collateral from sister Obtain records from last hospitalization. MOCA Referral for [facility] services if patient is agreeable. encourage medication compliance;consider VARGAS discharge planning 09/11: Elevated fasting blood sugar elevated hemoglobin A1c 9.2 med consult placed put in point of care needed will start metformin Would benefit from clarity over recent hospitalization what this were done details regarding treatment continue Haldol unclear if patient has Healthcare proxy his [place] was low slowed cognition with poor details in depth at times during blankly regarding making judgments Unclear if any of this relates to past coma or 2 hypothyroidism. He does seem more impaired than when last seen unclear when last imaging was. Continue Haldol [facility] neuro [facility] involvement regarding diagnostic picture. Patient does remain paranoid blunted suspicious apathetic. He might benefit from longer-term placement if available and appropriate at a later time involved [facility] involvement would be quite helpful 09/12: cont haldol get records ? hcp ? start antidep unclear hx 09/13: Keeping to self. More talkative today. Pt concerned he will be transferred to [facility]. Pt stated, The paper I signed yesterday. Are you going to send me back to the last hospital? That place was horrible . Pt was educated he signed a release of information with Dr. Gonzalez to obtain records from [facility]. Pt was given a copy of the release he signed. Despite this, pt continues to be anxious about being transferred. Pt denies SI/HI/VH/AH. 09/14: Keeping to self. active on unit. showered. Pt reports feeling alright today; pt reports he is worried about where I'm going to go . Pt continues concerned he will be transferred to [facility]. Pt denies SI/HI/VH/AH. 09/15:Pt reports feeling alright today; pt continues to report he is worried about where I'm going to go . Responding with brief responses. Guarded. Observed standing in one place for a long period of time. Appears confused. Pt denies SI/HI/VH/AH. T/W spoke to patient's sister, Ros, with patients verbal consent. Ros reports concerns regarding patients ability to make decisions regarding his mental and physical health. She plans on contacting legal advice on obtaining guardianship of patient. 09/16:Patient's presents similar to yesterday's presentation. Responding with brief responses. Guarded. Observed standing in one place for a long period of time, when asked what he is doing, pt stated, I don't know . Pt reports he plans on contacting his sister today and try to convince her for me to stay there . Pt denies SI/HI/VH/AH. Continue current tx plan. 09/17: brief responses. Guarded. 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 Pt denies SI/HI/VH/AH. T/W and Dr. Gonzalez spoke to patient's sister, Ros. Ros stated being [facility] HCP and plans on finding document. She plans on coming to the hospital on Saturday to be present for [facility] intake. 09/21: No changes 09/22:Patient flat apathetic difficult insight and judgment his sister is healthcare proxy if needed patient is accepting medical treatment Referral to [facility] 09/23:Considers starting Haldol Decanoate patient is agreeable superficially difficulty with exec fx was seen [facility] 09/24:Pt seen in f/u mood flat dysphoric difficulty engaging in conversation preoccupied with thought he wont be living with family thing slowed apathetic no clear response with namenda ? some improvement inc lamictal start low dose sertraline inc lamictal ck tsh 09/25:Start Abilify as augmentation with Haldol see if can be more stimulating regarding depressed mood apathetic limited engagement sertraline 50 mg Lamictal 25 b.i.d. referral to [facility] which would have structure unclear if patient can engage with this he remains quite depressed has delusional beliefs regarding housing and that things have been done he has repeatedly tried to reach out to his sister denies active SI needs much help dressing talking with others encouragement to eat severe thought blocking Abilify might be more stimulating than Haldol which can be more dulling 09/26:Abilify started sertraline Lamictal encouraged step-down to [facility] encourage reality orientation denies active SI 09/27: Continue current regimen and plans 09/28: Continue current regimen and plans. 09/29: Referral to [facility] increase Abilify to 5 mg daily eventually try and taper Haldol sertraline 50 mg daily 09/30:Increase Abilify to 10 mg lower Haldol to 7 mg continue sertraline and Lamictal 10/01:Abilify increased to 10 mg continue to taper Haldol sertraline 100 mg Lamictal increased to 75 mg patient apathetic withdrawn difficulty with placement some paranoia continues difficulty with decision making at times. Not physically aggressive internally preoccupied seems somewhat improved with Abilify sertraline Continue discharge planning 10/02:Patient somewhat blunted flat slowed thinking during the day times staring. Change Abilify to 10 mg at bedtime. Scheduled Haldol will lowered to 2.5 mg Continue sertraline 100 mg Namenda 5 b.i.d. 10/03:Haldol discontinued modafinil low-dose monitor for psychosis or agitation continue discharge planning 10/06: May need to firm healthcare proxy calls have been placed to sister to try to help in discharge planning. Referrals made. Patient cooperative with care 10/07:Pharmacy ordering Abilify maintain a increase modafinil 100 mg patient remains flat passive depressed some improvement noted no current paranoia noted continue discharge planning no current safe discharge plan 10/08: Increase Lamictal 100 mg Abilify Maintena 400 mg hold modafinil unclear if was overly stimulating patient continues to present internally preoccupied. 10/09:Healthcare proxy invoked discharge planning continue Lamictal Abilify pending maintain a 10/10:Healthcare proxy invoked new CV signed discharge planning. 10/11 keep same treatment 10/12 keep same treatment 10/13: Continue plan of care Lamictal Abilify discharge planning sertraline 10/14: stable. continue current mgmt. 10/15: stable. continue current mgmt. 10/16: stable presentation. continue current mgmt. 10/17: as for yesterday. 10/18: no changes. 10/19: stabel, safe. no change. 10/20: no change in presentation. calm, cooperative. active on unit, social with select peers, attending groups. Pt reports feeling alright . denies SI/HI/VH/AH. Social work waiting to hear from possible placement location. Continue current tx plan. 10/21: continue current tx plan. awaiting placement. 10/22: calm, cooperative. active on unit, social with select peers, attending groups. Pt reports feeling good ; pt stated, I'm waiting to see where I'm going . denies SI/HI/VH/AH. Showered with encouragement. 10/23: continue current tx plan. 10/24: calm, cooperative. active on unit, social with select peers, attending groups. Pt reports feeling good ; pt stated, I just want a place to live . 10/25- likely at baseline for him- CTP 10/26 CTP likely needs placement 10/27: continue current tx plan. awaiting placement. 10/28: Similar to yesterday. No change in presentation. 10/29: Pt reports feeling good ;pt stated, just waiting for a place to live . denies any issues at this time. 10/30: calm, cooperative. active on unit, social with select peers, attending groups. Pt reports feeling worried about where I am going to live . denies any issues at this time. 10/21: no change in presentation. continue current tx plan. 11/01: continue current management and treatment plan. 11/02: Continue current management and treatment plan. 11/03: Continue current management and treatment plan. 11/04: Active on unit. calm, cooperative. social with select peers, attending groups. denies any issues at this time. He reports sleeping well. Pt reports he would be interested in applying for [facility] services; social work aware. 11/05: Active on unit. calm, cooperative. social with select peers, attending groups. denies any issues at this time. Pt reports feeling okay ; he reports anxiety regarding placement. Continue current tx plan. 11/07/23 [facility] referral has appropriate concerns re living stuation cont abilify lamictal 11/08/23 Pt cooperative with care d/c planning working with sw cont d/c planning cont lamictal abilify 11/12/23 Patient increasingly despairing aware of no clear discharge plan periods needs cuing for much functioning limited social engaged needs help regarding diabetes and medication compliance reportedly had been rejected by multiple rest homes patient not threatening intermittently hopeless helpless very limited family contact at this time 11/13/23 pt flat depressed hopeless helpless unable to fx without structure 11/15 continue tx. 11/16 continue tx. 11/18/2023 Continue plan of care referral to [facility] TSH low will decrease levothyroxine 11/19/23 Pt flat dysphor ic inc hopeless helpless lamictal 150 hs dec levothyroxine 150 d/c planning cont 11/20/23 lamictal inc d/c planning h referral 12/02/2023 Continue Lamictal Abilify patient cooperative with care gets despairing at times regarding lack of family support problematic discharge planning in relationship to finding suitable structured place to live 12/02: Social with peers. Per nursing, pt did not sleep last night. Pt reports he did not sleeping because he wasn't tired but feel okay ; ordered Ativan 1mg PO bedtime for tonight, pt aware. 12/03: In bed sleeping, pt reports he is catching up on sleep from the night before. Calm, cooperative. T/W and carnival worker, Billie, with pt to discuss possibly going to the [facility]. Pt reports he would like to call his sister and speak to her before deciding. DC Ativan. 12/04: Active on unit, social with peers. attending groups. T/W and carnival worker, Billie, met with pt to discuss discharge plan. Pt reports he doesn't know if he would want to go to a homeless intermediate; he states he would rather live on the street because I've done it before . Pt encouraged to consider benefits of going to a intermediate with the winter months coming; he agreed to doing phone intake with social work coordinator on Saturday with [facility]. 12/05: Pt presents similar to yesterday. Continues to perseverate about [facility] being a intermediate and not a program; He continues to agree to do phone intake on Saturday. Discussed VARGAS, pt reports he want time to consider d/t not liking needles . 12/08: Pt had phone interview with [facility], however, after multiple attempts at calling them, no one at [facility] picked up the phone to conduct interview. carnival worker to get into contact with them again. Pt denies any issues at this time. 12/09: Active on unit, social with peers. Pt denies any issues at this time. Patient agreed to receiving Abilify Maintena; risks/benefits reviewed. Waiting on placement. 12/10: Patient received Abilify Maintena yesterday. He denies any side effects. Pleasant. Waiting on placement. 12/11: continue current tx plan. 12/12: similar to days prior. waiting on placement. continue current tx plan. 12/13: appearing more depressed or demoralized. notes lots of people come and go. continue current mgmt. 12/14: same as for yesterday: find me a place to live? continue current mgmt. 12/15: out and about more. otherwise stable. continue current mgmt. 15: continue current tx plan. 12/17: continue current tx plan. 12/18: awaiting placement. denies any issues. 12/19: Pt reports feeling alright ; Social work continues to work on placement. Pt denies any issues at this time. Pt reports sleeping well. 12/20: Continue plan of care 12/21: Continue plan of care 12/22: continue current tx plan. 12/23: continue tx plan. 12/24: continue tx plan. 12/25: similar to days prior. waiting on placement. 12/26: Continue current tx plan. 12/27: Continue current management and treatment plan. 12/28: Continue current management and treatment plan. 12/29: In bed, tested positive for Covid. Vomited x1 per nursing. Pt reports feeling okay ; sleeping most of shift. Continue current tx plan. 12/30: Pt reports feeling okay ; continues on isolation d/t being Covid positive. Utilizing IPad. Pt reports sleeping well. denies SI/HI/VH/AH. Has not vomited today. 12/31: Pt reports feeling alright ; pt stated, I still have a stuffy nose, cough and headache but I'm starting to feel better . continues on isolation. denies other issues at this time. Continue current tx plan. 01/01: pt reports covid symptoms are improving. continues waiting on placement. 01/02: Continue tx plan. 01/05/24: no changes. 01/05: Active on unit. Pt reports feeling okay today; denies any issues at this time. pt had meeting with [facility] to be placed on list for temporary placement; pt declined. Dr. Gonzalez to speak to patient regarding this. 01/06: Discussed placement; pt reports he is thinking about saying yes to the motel . pt reports he does not believe his sister or social work coordinator that he has money saved in the bank. Pt believes if he left to go to the motel he would be stuck there with no money . Social work to discuss with pt. 01/07: Active on unit. social with peers. denies any issues. Pt reports feeling okay ; reports he is still thinking about where he will go after discharge. 01/08: waiting on placement. continue current tx plan. 01/09: Patient continues to wait on placement. 119: Continue current management and treatment plan. 03/13: Continue current management and treatment plan. 01/12: waiting on placement. 01/13: continue current tx plan. 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 noted on the unit to fixate on certain female peers. 01/24 continues with impaired insight/judgement- risk to others requiring inpatient and 1;1 01/25 given poor insight and stalking behavior continues to need inpt level of stay 02/01/24 Patient with odd affect feels safe in this setting requires structured setting given neurocognitive behavioral difficulties Plan 1. Continue with same treatment. 2. Waiting for placement Reason for continued inpatient stay Substantial Risk for: inability to function and rapid decompensation Time Spent With Patient Time: Total time managing care of this patient today ____ minutes.
[2024-01-30] MEDS: metFORMIN HCl ER 500 MG TAB.ER.24H 1000 MG PO (17:11)
[2024-01-30 20:53] VITALS: BP 109/62; PULSE 82; RESP 16; TEMP 36.5; O2SAT 96
[2024-01-30] MEDS: lamoTRIgine 100 MG TABLET 150 MG PO (20:54)
[2024-01-30] MEDS: Insulin Glargine,Hum.rec.anlog 100 UNIT/ML 10 ML VIAL 20 UNIT SUBCUT (20:55)
[2024-01-31] MEDS: Levothyroxine Sodium 150 MCG TABLET PO (05:44)
[2024-01-31 05:51] LABS: Glucose, Whole Blood 117 mg/dL (60-115)
[2024-01-31 08:00] VITALS: BP 123/64; PULSE 97; RESP 16; TEMP 2.7; TEMP 36.8; O2SAT 96
[2024-01-31] MEDS: Sertraline HCL 50 MG TABLET PO (08:21)
[2024-01-31] MEDS: Memantine HCl 5 MG TABLET PO ×2 (08:21→20:19)
[2024-01-31 13:37] LABS: Glucose, Whole Blood 144 mg/dL (60-115)
--- NOTE | 2024-01-31 14:53 | P.PNPSI_ITS ---
Subjective Subjective Date of Service: 01/31/24 Reason For Visit: paranoia cognitive impairment Subjective Notes: Conditional Voluntary Interim History: The nursing staff reported the patient had been in bed, no changes in his mental status. On interview the patient denies new symptoms, waiting for placement. Mental Status Exam Mental Status Exam Patient Appearance: Appropriate Patient Orientation: Person and Situation Level of Consciousness: Awake and Appropriate Patient Behavior: Guarded and Passive Mood Description: Withdrawn Affect Description: Constricted Patient Cognition Impaired: Yes Ability to Follow Directions: Good Speech Pattern: Clear 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: None Delusions: Not Present Thought Process: Distracted and Slowed Thinking Thought Content: positive for [place] and positive for Poverty of Content Judgement: Fair Diagnostics Vital Signs (24Hr): Vital Signs - 24 hr 01/30/24 20:53 01/31/24 08:00 Temperature 97.7 F 36.8 F L Pulse Rate 82 97 Respiratory Rate 16 16 Blood Pressure 109/62 123/64 Pulse Oximetry 96 96 Oxygen Delivery Method Room Air Room Air BMI result Body Mass Index 32.4 Labs 09/10/23 20:00 01/30/24 07:28 Labs: Laboratory Results - last 48 hr 01/30/24 01/30/24 01/31/24 06:12 07:28 05:47 Creatinine 1.00 Estim Creat Clear Calc 91.5 Estimated GFR > 60 POC Glucose 113 117 H 01/31/24 13:34 Creatinine Estim Creat Clear Calc Estimated GFR POC Glucose 144 H Imaging Radiology Impressions: ITS Impressions Brain MRI 09/19/23 20:33 IMPRESSION: 1. No demonstrated acute intracranial abnormalities. 2. Chronic mild to moderate nonspecific white matter changes, most notably in the deep white matter of the right frontal lobe. Mild to moderate generalized cerebral volume loss. Medications Medications Current Medications Acetaminophen (Acetaminophen 325 Mg Tablet) 650 mg PO Q6H PRN PRN Reason: Headache/Pain Mild Scale (1-3) Last Admin: 01/01/24 08:45 Dose: 650 mg Al Hydroxide/Mg Hydroxide (Magnesium Hydrox/Alum Hydrox 30 Ml Oral.Susp) 30 ml PO Q6H PRN PRN Reason: Heartburn/Nausea Last Admin: 11/27/23 10:48 Dose: 30 ml Aripiprazole (Aripiprazole Er 300 Mg Suser.Syr) 300 mg IM Q28D@0900 MANAS Last Admin: 01/08/24 09:00 Dose: 300 mg Benzocaine (Throat Lozenge, Medicated Lozenge) 1 lozenge MUCOUS MEM Q2H PRN PRN Reason: Sore Throat Last Admin: 12/30/23 20:59 Dose: 1 lozenge Benztropine Mesylate (Benztropine Mesylate 0.5 Mg Tablet) 0.5 mg PO TID PRN PRN Reason: Extrapyramidal Effects Glucose (Glucose Gel 15 Gm Gel..Gram.) 15 gm PO Q15M PRN; Protocol PRN Reason: per Hypoglycemia Standing Ord. Guaifenesin/Dextromethorphan (Guaifenesin Dm 100/10/5 Ml 5 Ml Syrup) 5 ml PO Q4H PRN PRN Reason: Cough Last Admin: 01/06/24 22:48 Dose: 5 ml Hydroxyzine HCl (Hydroxyzine Hcl 25 Mg Tablet) 25 mg PO Q6H PRN PRN Reason: Anxiety Last Admin: 01/29/24 23:13 Dose: 25 mg Dextrose (D10) 250 mls @ 750 mls/hr IV Q15M PRN; Protocol PRN Reason: per Hypoglycemia Standing Ord. Insulin Glargine (Insulin Glargine,Hum.Rec.Anlog 100 Unit/Ml 10 Ml Vial) 20 unit SUBCUT BEDTIME [facility] Last Admin: 01/30/24 20:55 Dose: 20 unit Lamotrigine (Lamotrigine 100 Mg Tablet) 150 mg PO BEDTIME [facility] Last Admin: 01/30/24 20:54 Dose: 150 mg Levothyroxine Sodium (Levothyroxine Sodium 150 Mcg Tablet) 150 mcg PO DAILY@0630 [facility] Last Admin: 01/31/24 05:44 Dose: 150 mcg Magnesium Hydroxide (Milk Of Magnesia 30 Ml Oral.Susp) 30 ml PO DAILY PRN PRN Reason: Constipation Memantine (Memantine Hcl 5 Mg Tablet) 5 mg PO BID [facility] Last Admin: 01/31/24 08:21 Dose: 5 mg Metformin HCl (Metformin Hcl Er 500 Mg Tab.Er.24h) 1,000 mg PO DAILY@1700 [facility] Last Admin: 01/30/24 17:11 Dose: 1,000 mg Ondansetron HCl (Ondansetron Odt 8 Mg Tab.Rapdis) 8 mg TRANSLINGU Q8H PRN PRN Reason: Nausea and Vomiting Last Admin: 12/31/23 08:39 Dose: 8 mg Sertraline HCl (Sertraline Hcl 50 Mg Tablet) 50 mg PO DAILY MANAS Last Admin: 01/31/24 08:21 Dose: 50 mg Simethicone (Simethicone 80 Mg Tab.Chew) 80 mg PO QIDWMHS PRN PRN Reason: Gas Trazodone HCl (Trazodone Hcl 50 Mg Tablet) 50 mg PO BEDTIME MRX1 PRN PRN Reason: Insomnia Last Admin: 01/29/24 23:13 Dose: 50 mg Allergies Allergies Allergy/AdvReac Type Severity Reaction Status Date / Time amoxicillin [AMOXICILLIN] Allergy Mild VOMITING/ABD Verified 09/10/23 19:44 PAIN Assessment & Plan Assessment & Plan (1) Schizoaffective disorder: Status: Acute Code(s): F25.9 - Schizoaffective disorder, unspecified (2) Hypothyroidism: Status: Acute Code(s): E03.9 - Hypothyroidism, unspecified (3) Type 2 diabetes mellitus: Status: Acute Code(s): E11.9 - Type 2 diabetes mellitus without complications (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 Plan: CV 15 minute safety checks Continue home medications: Haldol 10mg PO daily Synthroid 200mcg PO daily Obtain labs; A1C/POCs Obtain collateral from sister Obtain records from last hospitalization. MOCA Referral for [facility] services if patient is agreeable. encourage medication compliance;consider VARGAS discharge planning 09/11: Elevated fasting blood sugar elevated hemoglobin A1c 9.2 med consult placed put in point of care needed will start metformin Would benefit from clarity over recent hospitalization what this were done details regarding treatment continue Haldol unclear if patient has Healthcare proxy his [place] was low slowed cognition with poor details in depth at times during blankly regarding making judgments Unclear if any of this relates to past coma or 2 hypothyroidism. He does seem more impaired than when last seen unclear when last imaging was. Continue Haldol [facility] involvement regarding diagnostic picture. Patient does remain paranoid blunted suspicious apathetic. He might benefit from longer- term placement if available and appropriate at a later time involved [facility] involvement would be quite helpful 09/12: cont haldol get records ? hcp ? start antidep unclear hx 09/13: Keeping to self. More talkative today. Pt concerned he will be transferred to [facility]. Pt stated, The paper I signed yesterday. Are you going to send me back to the last hospital? That place was horrible . Pt was educated he signed a release of information with Dr. Gonzalez to obtain records from [facility]. Pt was given a copy of the release he signed. Despite this, pt continues to be anxious about being transferred. Pt denies SI/HI/VH/AH. 09/14: Keeping to self. active on unit. showered. Pt reports feeling alright today; pt reports he is worried about where I'm going to go . Pt continues concerned he will be transferred to [facility]. Pt denies SI/HI/VH/AH. 09/15:Pt reports feeling alright today; pt continues to report he is worried about where I'm going to go . Responding with brief responses. Guarded. Observed standing in one place for a long period of time. Appears confused. Pt denies SI/HI/VH/AH. T/W spoke to patient's sister, Ros, with patients verbal consent. Ros reports concerns regarding patients ability to make decisions regarding his mental and physical health. She plans on contacting legal advice on obtaining guardianship of patient. 09/16:Patient's presents similar to yesterday's presentation. Responding with brief responses. Guarded. Observed standing in one place for a long period of time, when asked what he is doing, pt stated, I don't know . Pt reports he plans on contacting his sister today and try to convince her for me to stay there . Pt denies SI/HI/VH/AH. Continue current tx plan. 09/17: brief responses. Guarded. 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 Pt denies SI/HI/VH/AH. T/W and Dr. Gonzalez spoke to patient's sister, Ros. Ros stated being [facility] HCP and plans on finding document. She plans on coming to the hospital on Saturday to be present for [facility] intake. 09/21: No changes 09/22:Patient flat apathetic difficult insight and judgment his sister is healthcare proxy if needed patient is accepting medical treatment Referral to [facility] 09/23:Considers starting Haldol Decanoate patient is agreeable superficially difficulty with exec fx was seen [facility] 09/24:Pt seen in f/u mood flat dysphoric difficulty engaging in conversation preoccupied with thought he wont be living with family thing slowed apathetic no clear response with namenda ? some improvement inc lamictal start low dose sertraline inc lamictal ck tsh 09/25:Start Abilify as augmentation with Haldol see if can be more stimulating regarding depressed mood apathetic limited engagement sertraline 50 mg Lamictal 25 b.i.d. referral to [facility] which would have structure unclear if patient can engage with this he remains quite depressed has delusional beliefs regarding housing and that things have been done he has repeatedly tried to reach out to his sister denies active SI needs much help dressing talking with others encouragement to eat severe thought blocking Abilify might be more stimulating than Haldol which can be more dulling 09/26:Abilify started sertraline Lamictal encouraged step-down to [facility] encourage reality orientation denies active SI 09/27: Continue current regimen and plans 09/28: Continue current regimen and plans. 09/29: Referral to [facility] increase Abilify to 5 mg daily eventually try and taper Haldol sertraline 50 mg daily 09/30:Increase Abilify to 10 mg lower Haldol to 7 mg continue sertraline and Lamictal 10/01:Abilify increased to 10 mg continue to taper Haldol sertraline 100 mg Lamictal increased to 75 mg patient apathetic withdrawn difficulty with placement some paranoia continues difficulty with decision making at times. Not physically aggressive internally preoccupied seems somewhat improved with Abilify sertraline Continue discharge planning 10/02:Patient somewhat blunted flat slowed thinking during the day times staring. Change Abilify to 10 mg at bedtime. Scheduled Haldol will lowered to 2.5 mg Continue sertraline 100 mg Namenda 5 b.i.d. 10/03:Haldol discontinued modafinil low-dose monitor for psychosis or agitation continue discharge planning 10/06: May need to firm healthcare proxy calls have been placed to sister to try to help in discharge planning. Referrals made. Patient cooperative with care 10/07:Pharmacy ordering Abilify maintain a increase modafinil 100 mg patient remains flat passive depressed some improvement noted no current paranoia noted continue discharge planning no current safe discharge plan 10/08: Increase Lamictal 100 mg Abilify Maintena 400 mg hold modafinil unclear if was overly stimulating patient continues to present internally preoccupied. 10/09:Healthcare proxy invoked discharge planning continue Lamictal Abilify pending maintain a 10/10:Healthcare proxy invoked new CV signed discharge planning. 10/11 keep same treatment 10/12 keep same treatment 10/13: Continue plan of care Lamictal Abilify discharge planning sertraline 10/14: stable. continue current mgmt. 10/15: stable. continue current mgmt. 10/16: stable presentation. continue current mgmt. 10/17: as for yesterday. 10/18: no changes. 10/19: stabel, safe. no change. 10/20: no change in presentation. calm, cooperative. active on unit, social with select peers, attending groups. Pt reports feeling alright . denies SI/HI/VH/AH. Social work waiting to hear from possible placement location. Continue current tx plan. 10/21: continue current tx plan. awaiting placement. 10/22: calm, cooperative. active on unit, social with select peers, attending groups. Pt reports feeling good ; pt stated, I'm waiting to see where I'm going . denies SI/HI/VH/AH. Showered with encouragement. 10/23: continue current tx plan. 10/24: calm, cooperative. active on unit, social with select peers, attending groups. Pt reports feeling good ; pt stated, I just want a place to live . 10/25- likely at baseline for him- CTP 10/26 CTP likely needs placement 10/27: continue current tx plan. awaiting placement. 10/28: Similar to yesterday. No change in presentation. 10/29: Pt reports feeling good ;pt stated, just waiting for a place to live . denies any issues at this time. 10/30: calm, cooperative. active on unit, social with select peers, attending groups. Pt reports feeling worried about where I am going to live . denies any issues at this time. 10/21: no change in presentation. continue current tx plan. 11/01: continue current management and treatment plan. 11/02: Continue current management and treatment plan. 11/03: Continue current management and treatment plan. 11/04: Active on unit. calm, cooperative. social with select peers, attending groups. denies any issues at this time. He reports sleeping well. Pt reports he would be interested in applying for [facility] services; social work aware. 11/05: Active on unit. calm, cooperative. social with select peers, attending groups. denies any issues at this time. Pt reports feeling okay ; he reports anxiety regarding placement. Continue current tx plan. 11/07/23 [facility] referral has appropriate concerns re living stuation cont abilify lamictal 11/08/23 Pt cooperative with care d/c planning working with cont d/c planning cont lamictal abilify 11/12/23 Patient increasingly despairing aware of no clear discharge plan periods needs cuing for much functioning limited social engaged needs help regarding diabetes and medication compliance reportedly had been rejected by multiple rest homes patient not threatening intermittently hopeless helpless very limited family contact at this time 11/13/23 pt flat depressed hopeless helpless unable to fx without structure 11/15 continue tx. 11/16 continue tx. 11/18/2023 Continue plan of care referral to [facility] TSH low will decrease levothyroxine 11/19/23 Pt flat dysphor ic inc hopeless helpless lamictal 150 hs dec levothyroxine 150 d/c planning cont 11/20/23 lamictal inc d/c planning dmh referral 12/02/2023 Continue Lamictal Abilify patient cooperative with care gets despairing at times regarding lack of family support problematic discharge planning in relationship to finding suitable structured place to live 12/02: Social with peers. Per nursing, pt did not sleep last night. Pt reports he did not sleeping because he wasn't tired but feel okay ; ordered Ativan 1mg PO bedtime for tonight, pt aware. 12/03: In bed sleeping, pt reports he is catching up on sleep from the night before. Calm, cooperative. T/W and conservation worker, Billie, with pt to discuss possibly going to the [facility]. Pt reports he would like to call his sister and speak to her before deciding. DC Ativan. 12/04: Active on unit, social with peers. attending groups. T/W and conservation worker, Billie, met with pt to discuss discharge plan. Pt reports he doesn't know if he would want to go to a homeless fpc; he states he would rather live on the street because I've done it before . Pt encouraged to consider benefits of going to a fpc with the winter months coming; he agreed to doing phone intake with psychologist social on Saturday with [facility]. 12/05: Pt presents similar to yesterday. Continues to perseverate about [facility] being a fpc and not a program; He continues to agree to do phone intake on Saturday. Discussed VARGAS, pt reports he want time to consider d/t not liking needles . 12/08: Pt had phone interview with [facility], however, after multiple attempts at calling them, no one at [facility] picked up the phone to conduct interview. conservation worker to get into contact with them again. Pt denies any issues at this time. 12/09: Active on unit, social with peers. Pt denies any issues at this time. Patient agreed to receiving Abilify Maintena; risks/benefits reviewed. Waiting on placement. 12/10: Patient received Abilify Maintena yesterday. He denies any side effects. Pleasant. Waiting on placement. 12/11: continue current tx plan. 12/12: similar to days prior. waiting on placement. continue current tx plan. 12/13: appearing more depressed or demoralized. notes lots of people come and go. continue current mgmt. 12/14: same as for yesterday: find me a place to live? continue current mgmt. 12/15: out and about more. otherwise stable. continue current mgmt. 12/16: continue current tx plan. 12/17: continue current tx plan. 12/18: awaiting placement. denies any issues. 12/19: Pt reports feeling alright ; Social work continues to work on placement. Pt denies any issues at this time. Pt reports sleeping well. 12/20: Continue plan of care 12/21: Continue plan of care 12/22: continue current tx plan. 12/23: continue tx plan. 12/24: continue tx plan. 12/25: similar to days prior. waiting on placement. 12/26: Continue current tx plan. 12/27: Continue current management and treatment plan. 12/28: Continue current management and treatment plan. 12/29: In bed, tested positive for Covid. Vomited x1 per nursing. Pt reports feeling okay ; sleeping most of shift. Continue current tx plan. 12/30: Pt reports feeling okay ; continues on isolation d/t being Covid positive. Utilizing IPad. Pt reports sleeping well. denies SI/HI/VH/AH. Has not vomited today. 12/31: Pt reports feeling alright ; pt stated, I still have a stuffy nose, cough and headache but I'm starting to feel better . continues on isolation. denies other issues at this time. Continue current tx plan. 01/01: pt reports covid symptoms are improving. continues waiting on placement. 01/02: Continue tx plan. 01/05/24: no changes. 01/05: Active on unit. Pt reports feeling okay today; denies any issues at this time. pt had meeting with [facility] to be placed on list for temporary placement; pt declined. Dr. Gonzalez to speak to patient regarding this. 01/06: Discussed placement; pt reports he is thinking about saying yes to the motel . pt reports he does not believe his sister or psychologist social that he has money saved in the bank. Pt believes if he left to go to the motel he would be stuck there with no money . Social work to discuss with pt. 01/07: Active on unit. social with peers. denies any issues. Pt reports feeling okay ; reports he is still thinking about where he will go after discharge. 01/08: waiting on placement. continue current tx plan. 01/09: Patient continues to wait on placement. 119: Continue current management and treatment plan. 03/13: Continue current management and treatment plan. 01/12: waiting on placement. 01/13: continue current tx plan. 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 noted on the unit to fixate on certain female peers. 01/24 continues with impaired insight/judgement- risk to others requiring inpatient and 1;1 01/25 given poor insight and stalking behavior continues to need inpt level of stay Plan 1. Continue with same treatment. 2. Waiting for placement Reason for continued inpatient stay Substantial Risk for: inability to function, rapid decompensation and med/psych decompensation Time Spent With Patient Time: Total time managing care of this patient today __20__ minutes.
[2024-01-31] MEDS: metFORMIN HCl ER 500 MG TAB.ER.24H 1000 MG PO (16:31)
[2024-01-31 20:00] VITALS: BP 124/75; PULSE 85; TEMP 36.3; O2SAT 97
[2024-01-31] MEDS: Insulin Glargine,Hum.rec.anlog 100 UNIT/ML 10 ML VIAL 20 UNIT SUBCUT (20:19)
[2024-01-31] MEDS: lamoTRIgine 100 MG TABLET 150 MG PO (20:19)
[2024-01-31] MEDS: traZODone HCL 50 MG TABLET PO (20:19)
[2024-02-01] MEDS: Levothyroxine Sodium 150 MCG TABLET PO (06:34)
[2024-02-01 07:02] LABS: Glucose, Whole Blood 107 mg/dL (60-115)
[2024-02-01 08:00] VITALS: BP 121/76; PULSE 87; RESP 18; TEMP 36.7; O2SAT 97
[2024-02-01] MEDS: Memantine HCl 5 MG TABLET PO ×2 (09:01→20:57)
[2024-02-01] MEDS: Sertraline HCL 50 MG TABLET PO (09:01)
[2024-02-01] MEDS: metFORMIN HCl ER 500 MG TAB.ER.24H 1000 MG PO (16:29)
[2024-02-01 20:00] VITALS: BP 134/71; PULSE 88; RESP 18; TEMP 36.4; O2SAT 95
[2024-02-01] MEDS: Insulin Glargine,Hum.rec.anlog 100 UNIT/ML 10 ML VIAL 20 UNIT SUBCUT (20:56)
[2024-02-01] MEDS: lamoTRIgine 100 MG TABLET 150 MG PO (20:57)
[2024-02-01] MEDS: traZODone HCL 50 MG TABLET PO (20:57)
[2024-02-02] MEDS: Levothyroxine Sodium 150 MCG TABLET PO (06:37)
[2024-02-02 07:05] LABS: Glucose, Whole Blood 126 mg/dL (60-115)
[2024-02-02 07:55] VITALS: BP 133/70; PULSE 76; RESP 18; TEMP 36.8; O2SAT 98
[2024-02-02] MEDS: Memantine HCl 5 MG TABLET PO ×2 (08:01→21:05)
[2024-02-02] MEDS: Sertraline HCL 50 MG TABLET PO (08:01)
--- NOTE | 2024-02-02 13:02 | P.PNPSI_ITS ---
Subjective Subjective Date of Service: 02/02/24 Reason For Visit: paranoia cognitive impairment Subjective Notes: Conditional Voluntary Interim History: Pt has been cooperative calm no gross psychosis cooperative Mental Status Exam Mental Status Exam Patient Appearance: Appropriate Patient Orientation: Person, Place and Situation Level of Consciousness: Awake and Appropriate Patient Behavior: Guarded and Passive Mood Description: Blunted Affect Description: Constricted Patient Cognition Impaired: Yes Ability to Follow Directions: Good Speech Pattern: Clear and Appropriate 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: None Delusions: Ideas of Reference Thought Process: Slowed Thinking Thought Content: positive for [place] and positive for Poverty of Content Judgement: Fair Diagnostics Vital Signs (24Hr): Vital Signs - 24 hr 02/01/24 20:00 02/02/24 07:55 Temperature 97.6 F 98.2 F Pulse Rate 88 76 Respiratory Rate 18 18 Blood Pressure 134/71 133/70 Pulse Oximetry 95 98 Oxygen Delivery Method Room Air Room Air BMI result Body Mass Index 32.4 Labs 09/10/23 20:00 01/30/24 07:28 Labs: Laboratory Results - last 48 hr 01/31/24 02/01/24 02/02/24 13:34 06:35 06:37 POC Glucose 144 H 107 126 H Imaging Radiology Impressions: ITS Impressions Brain MRI 09/19/23 20:33 IMPRESSION: 1. No demonstrated acute intracranial abnormalities. 2. Chronic mild to moderate nonspecific white matter changes, most notably in the deep white matter of the right frontal lobe. Mild to moderate generalized cerebral volume loss. Medications Medications Current Medications Acetaminophen (Acetaminophen 325 Mg Tablet) 650 mg PO Q6H PRN PRN Reason: Headache/Pain Mild Scale (1-3) Last Admin: 01/01/24 08:45 Dose: 650 mg Al Hydroxide/Mg Hydroxide (Magnesium Hydrox/Alum Hydrox 30 Ml Oral.Susp) 30 ml PO Q6H PRN PRN Reason: Heartburn/Nausea Last Admin: 11/27/23 10:48 Dose: 30 ml Aripiprazole (Aripiprazole Er 300 Mg Suser.Syr) 300 mg IM Q28D@0900 MANAS Last Admin: 01/08/24 09:00 Dose: 300 mg Benzocaine (Throat Lozenge, Medicated Lozenge) 1 lozenge MUCOUS MEM Q2H PRN PRN Reason: Sore Throat Last Admin: 12/30/23 20:59 Dose: 1 lozenge Benztropine Mesylate (Benztropine Mesylate 0.5 Mg Tablet) 0.5 mg PO TID PRN PRN Reason: Extrapyramidal Effects Glucose (Glucose Gel 15 Gm Gel..Gram.) 15 gm PO Q15M PRN; Protocol PRN Reason: per Hypoglycemia Standing Ord. Guaifenesin/Dextromethorphan (Guaifenesin Dm 100/10/5 Ml 5 Ml Syrup) 5 ml PO Q4H PRN PRN Reason: Cough Last Admin: 01/06/24 22:48 Dose: 5 ml Hydroxyzine HCl (Hydroxyzine Hcl 25 Mg Tablet) 25 mg PO Q6H PRN PRN Reason: Anxiety Last Admin: 01/29/24 23:13 Dose: 25 mg Dextrose (D10) 250 mls @ 750 mls/hr IV Q15M PRN; Protocol PRN Reason: per Hypoglycemia Standing Ord. Insulin Glargine (Insulin Glargine,Hum.Rec.Anlog 100 Unit/Ml 10 Ml Vial) 20 unit SUBCUT BEDTIME [facility] Last Admin: 02/01/24 20:56 Dose: 20 unit Lamotrigine (Lamotrigine 100 Mg Tablet) 150 mg PO BEDTIME [facility] Last Admin: 02/01/24 20:57 Dose: 150 mg Levothyroxine Sodium (Levothyroxine Sodium 150 Mcg Tablet) 150 mcg PO DAILY@0630 [facility] Last Admin: 02/02/24 06:37 Dose: 150 mcg Magnesium Hydroxide (Milk Of Magnesia 30 Ml Oral.Susp) 30 ml PO DAILY PRN PRN Reason: Constipation Memantine (Memantine Hcl 5 Mg Tablet) 5 mg PO BID [facility] Last Admin: 02/02/24 08:01 Dose: 5 mg Metformin HCl (Metformin Hcl Er 500 Mg Tab.Er.24h) 1,000 mg PO DAILY@1700 [facility] Last Admin: 02/01/24 16:29 Dose: 1,000 mg Ondansetron HCl (Ondansetron Odt 8 Mg Tab.Rapdis) 8 mg TRANSLINGU Q8H PRN PRN Reason: Nausea and Vomiting Last Admin: 12/31/23 08:39 Dose: 8 mg Sertraline HCl (Sertraline Hcl 50 Mg Tablet) 50 mg PO DAILY [facility] Last Admin: 02/02/24 08:01 Dose: 50 mg Simethicone (Simethicone 80 Mg Tab.Chew) 80 mg PO QIDWMHS PRN PRN Reason: Gas Trazodone HCl (Trazodone Hcl 50 Mg Tablet) 50 mg PO BEDTIME MRX1 PRN PRN Reason: Insomnia Last Admin: 02/01/24 20:57 Dose: 50 mg Allergies Allergies Allergy/AdvReac Type Severity Reaction Status Date / Time amoxicillin [AMOXICILLIN] Allergy Mild VOMITING/ABD Verified 09/10/23 19:44 PAIN Assessment & Plan Assessment & Plan (1) Schizoaffective disorder: Status: Acute Code(s): F25.9 - Schizoaffective disorder, unspecified (2) Hypothyroidism: Status: Acute Code(s): E03.9 - Hypothyroidism, unspecified (3) Type 2 diabetes mellitus: Status: Acute Code(s): E11.9 - Type 2 diabetes mellitus without complications (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 Plan: CV 15 minute safety checks Continue home medications: Haldol 10mg PO daily Synthroid 200mcg PO daily Obtain labs; A1C/POCs Obtain collateral from sister Obtain records from last hospitalization. MOCA Referral for [facility] services if patient is agreeable. encourage medication compliance;consider VARGAS discharge planning 09/11: Elevated fasting blood sugar elevated hemoglobin A1c 9.2 med consult placed put in point of care needed will start metformin Would benefit from clarity over recent hospitalization what this were done details regarding treatment continue Haldol unclear if patient has Healthcare proxy his [place] was low slowed cognition with poor details in depth at times during blankly regarding making judgments Unclear if any of this relates to past coma or 2 hypothyroidism. He does seem more impaired than when last seen unclear when last imaging was. Continue Haldol sitter neuro indira involvement regarding diagnostic picture. Patient does remain paranoid blunted suspicious apathetic. He might benefit from longer- term placement if available and appropriate at a later time involved [facility] involvement would be quite helpful 09/12: cont haldol get records ? hcp ? start antidep unclear hx 09/13: Keeping to self. More talkative today. Pt concerned he will be transferred to [facility]. Pt stated, The paper I signed yesterday. Are you going to send me back to the last hospital? That place was horrible . Pt was educated he signed a release of information with Dr. Gonzalez to obtain records from [facility]. Pt was given a copy of the release he signed. Despite this, pt continues to be anxious about being transferred. Pt denies SI/HI/VH/AH. 09/14: Keeping to self. active on unit. showered. Pt reports feeling alright today; pt reports he is worried about where I'm going to go . Pt continues concerned he will be transferred to [facility]. Pt denies SI/HI/VH/AH. 09/15:Pt reports feeling alright today; pt continues to report he is worried about where I'm going to go . Responding with brief responses. Guarded. Observed standing in one place for a long period of time. Appears confused. Pt denies SI/HI/VH/AH. T/W spoke to patient's sister, Ros, with patients verbal consent. Ros reports concerns regarding patients ability to make decisions regarding his mental and physical health. She plans on contacting legal advice on obtaining guardianship of patient. 09/16:Patient's presents similar to yesterday's presentation. Responding with brief responses. Guarded. Observed standing in one place for a long period of time, when asked what he is doing, pt stated, I don't know . Pt reports he plans on contacting his sister today and try to convince her for me to stay there . Pt denies SI/HI/VH/AH. Continue current tx plan. 09/17: brief responses. Guarded. Continues to ground instructor basic one place for a long period of time, when asked what he is doing, pt stated, I don't know . Pt denies SI/HI/VH/AH. T/W and Dr. Gonzalez spoke to patient's sister, Ros. Ros stated being [facility] HCP and plans on finding document. She plans on coming to the hospital on Saturday to be present for [facility] intake. 09/21: No changes 09/22:Patient flat apathetic difficult insight and judgment his sister is healthcare proxy if needed patient is accepting medical treatment Referral to [facility] 09/23:Considers starting Haldol Decanoate patient is agreeable superficially difficulty with exec fx was seen [facility] 09/24:Pt seen in f/u mood flat dysphoric difficulty engaging in conversation preoccupied with thought he wont be living with family thing slowed apathetic no clear response with namenda ? some improvement inc lamictal start low dose sertraline inc lamictal ck tsh 09/25:Start Abilify as augmentation with Haldol see if can be more stimulating regarding depressed mood apathetic limited engagement sertraline 50 mg Lamictal 25 b.i.d. referral to [facility] which would have structure unclear if patient can engage with this he remains quite depressed has delusional beliefs regarding housing and that things have been done he has repeatedly tried to reach out to his sister denies active SI needs much help dressing talking with others encouragement to eat severe thought blocking Abilify might be more stimulating than Haldol which can be more dulling 09/26:Abilify started sertraline Lamictal encouraged step-down to [facility] encourage reality orientation denies active SI 09/27: Continue current regimen and plans 09/28: Continue current regimen and plans. 09/29: Referral to [facility] increase Abilify to 5 mg daily eventually try and taper Haldol sertraline 50 mg daily 09/30:Increase Abilify to 10 mg lower Haldol to 7 mg continue sertraline and Lamictal 10/01:Abilify increased to 10 mg continue to taper Haldol sertraline 100 mg Lamictal increased to 75 mg patient apathetic withdrawn difficulty with placement some paranoia continues difficulty with decision making at times. Not physically aggressive internally preoccupied seems somewhat improved with Abilify sertraline Continue discharge planning 10/02:Patient somewhat blunted flat slowed thinking during the day times staring. Change Abilify to 10 mg at bedtime. Scheduled Haldol will lowered to 2.5 mg Continue sertraline 100 mg Namenda 5 b.i.d. 10/03:Haldol discontinued modafinil low-dose monitor for psychosis or agitation continue discharge planning 10/06: May need to firm healthcare proxy calls have been placed to sister to try to help in discharge planning. Referrals made. Patient cooperative with care 10/07:Pharmacy ordering Abilify maintain a increase modafinil 100 mg patient remains flat passive depressed some improvement noted no current paranoia noted continue discharge planning no current safe discharge plan 10/08: Increase Lamictal 100 mg Abilify Maintena 400 mg hold modafinil unclear if was overly stimulating patient continues to present internally preoccupied. 10/09:Healthcare proxy invoked discharge planning continue Lamictal Abilify pending maintain a 10/10:Healthcare proxy invoked new CV signed discharge planning. 10/11 keep same treatment 10/12 keep same treatment 10/13: Continue plan of care Lamictal Abilify discharge planning sertraline 10/14: stable. continue current mgmt. 10/15: stable. continue current mgmt. 10/16: stable presentation. continue current mgmt. 10/17: as for yesterday. 10/18: no changes. 10/19: stabel, safe. no change. 10/20: no change in presentation. calm, cooperative. active on unit, social with select peers, attending groups. Pt reports feeling alright . denies SI/HI/VH/AH. Social work waiting to hear from possible placement location. Continue current tx plan. 10/21: continue current tx plan. awaiting placement. 10/22: calm, cooperative. active on unit, social with select peers, attending groups. Pt reports feeling good ; pt stated, I'm waiting to see where I'm going . denies SI/HI/VH/AH. Showered with encouragement. 10/23: continue current tx plan. 10/24: calm, cooperative. active on unit, social with select peers, attending groups. Pt reports feeling good ; pt stated, I just want a place to live . 10/25- likely at baseline for him- CTP 10/26 CTP likely needs placement 10/27: continue current tx plan. awaiting placement. 10/28: Similar to yesterday. No change in presentation. 10/29: Pt reports feeling good ;pt stated, just waiting for a place to live . denies any issues at this time. 10/30: calm, cooperative. active on unit, social with select peers, attending groups. Pt reports feeling worried about where I am going to live . denies any issues at this time. 10/21: no change in presentation. continue current tx plan. 11/01: continue current management and treatment plan. 11/02: Continue current management and treatment plan. 11/03: Continue current management and treatment plan. 11/04: Active on unit. calm, cooperative. social with select peers, attending groups. denies any issues at this time. He reports sleeping well. Pt reports he would be interested in applying for [facility] services; social work aware. 11/05: Active on unit. calm, cooperative. social with select peers, attending groups. denies any issues at this time. Pt reports feeling okay ; he reports anxiety regarding placement. Continue current tx plan. 11/07/23 [facility] referral has appropriate concerns re living stuation cont abilify lamictal 11/08/23 Pt cooperative with care d/c planning working with cont d/c planning cont lamictal abilify 11/12/23 Patient increasingly despairing aware of no clear discharge plan periods needs cuing for much functioning limited social engaged needs help regarding diabetes and medication compliance reportedly had been rejected by multiple rest homes patient not threatening intermittently hopeless helpless very limited family contact at this time 11/13/23 pt flat depressed hopeless helpless unable to fx without structure 11/15 continue tx. 11/16 continue tx. 11/18/2023 Continue plan of care referral to [facility] TSH low will decrease levothyroxine 11/19/23 Pt flat dysphor ic inc hopeless helpless lamictal 150 hs dec levothyroxine 150 d/c planning cont 11/20/23 lamictal inc d/c planning dmh referral 12/02/2023 Continue Lamictal Abilify patient cooperative with care gets despairing at times regarding lack of family support problematic discharge planning in relationship to finding suitable structured place to live 12/02: Social with peers. Per nursing, pt did not sleep last night. Pt reports he did not sleeping because he wasn't tired but feel okay ; ordered Ativan 1mg PO bedtime for tonight, pt aware. 12/03: In bed sleeping, pt reports he is catching up on sleep from the night before. Calm, cooperative. T/W and reinforcing iron worker helper, Billie, with pt to discuss possibly going to the [facility]. Pt reports he would like to call his sister and speak to her before deciding. DC Ativan. 12/04: Active on unit, social with peers. attending groups. T/W and reinforcing iron worker helper, Billie, met with pt to discuss discharge plan. Pt reports he doesn't know if he would want to go to a homeless penitentiary; he states he would rather live on the street because I've done it before . Pt encouraged to consider benefits of going to a penitentiary with the winter months coming; he agreed to doing phone intake with social organization professor on Saturday with [facility]. 12/05: Pt presents similar to yesterday. Continues to perseverate about [facility] being a penitentiary and not a program; He continues to agree to do phone intake on Saturday. Discussed VARGAS, pt reports he want time to consider d/t not liking needles . 12/08: Pt had phone interview with [facility], however, after multiple attempts at calling them, no one at [facility] picked up the phone to conduct interview. reinforcing iron worker helper to get into contact with them again. Pt denies any issues at this time. 12/09: Active on unit, social with peers. Pt denies any issues at this time. Patient agreed to receiving Abilify Maintena; risks/benefits reviewed. Waiting on placement. 12/10: Patient received Abilify Maintena yesterday. He denies any side effects. Pleasant. Waiting on placement. 12/11: continue current tx plan. 12/12: similar to days prior. waiting on placement. continue current tx plan. 12/13: appearing more depressed or demoralized. notes lots of people come and go. continue current mgmt. 12/14: same as for yesterday: find me a place to live? continue current mgmt. 12/15: out and about more. otherwise stable. continue current mgmt. 12/16: continue current tx plan. 12/17: continue current tx plan. 12/18: awaiting placement. denies any issues. 12/19: Pt reports feeling alright ; Social work continues to work on placement. Pt denies any issues at this time. Pt reports sleeping well. 12/20: Continue plan of care 12/21: Continue plan of care 12/22: continue current tx plan. 12/23: continue tx plan. 12/24: continue tx plan. 12/25: similar to days prior. waiting on placement. 12/26: Continue current tx plan. 12/27: Continue current management and treatment plan. 12/28: Continue current management and treatment plan. 12/29: In bed, tested positive for Covid. Vomited x1 per nursing. Pt reports feeling okay ; sleeping most of shift. Continue current tx plan. 12/30: Pt reports feeling okay ; continues on isolation d/t being Covid positive. Utilizing IPad. Pt reports sleeping well. denies SI/HI/VH/AH. Has not vomited today. 12/31: Pt reports feeling alright ; pt stated, I still have a stuffy nose, cough and headache but I'm starting to feel better . continues on isolation. denies other issues at this time. Continue current tx plan. 01/01: pt reports covid symptoms are improving. continues waiting on placement. 01/02: Continue tx plan. 01/05/24: no changes. 01/05: Active on unit. Pt reports feeling okay today; denies any issues at this time. pt had meeting with [facility] to be placed on list for temporary placement; pt declined. Dr. Gonzalez to speak to patient regarding this. 01/06: Discussed placement; pt reports he is thinking about saying yes to the motel . pt reports he does not believe his sister or social organization professor that he has money saved in the bank. Pt believes if he left to go to the motel he would be stuck there with no money . Social work to discuss with pt. 01/07: Active on unit. social with peers. denies any issues. Pt reports feeling okay ; reports he is still thinking about where he will go after discharge. 01/08: waiting on placement. continue current tx plan. 01/09: Patient continues to wait on placement. 119: Continue current management and treatment plan. 03/13: Continue current management and treatment plan. 01/12: waiting on placement. 01/13: continue current tx plan. 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 noted on the unit to fixate on certain female peers. 01/24 continues with impaired insight/judgement- risk to others requiring inpatient and 1;1 01/25 given poor insight and stalking behavior continues to need inpt level of stay 02/01/24 Patient with odd affect feels safe in this setting requires structured setting given neurocognitive behavioral difficulties 02/02/24 Pt flat blunted not aggressive but can be intrusive needs help with medication and cueing Plan 1. Continue with same treatment. 2. Waiting for placement Reason for continued inpatient stay Substantial Risk for: rapid decompensation and med/psych decompensation Time Spent With Patient Time: Total time managing care of this patient today ____ minutes.
[2024-02-02] MEDS: metFORMIN HCl ER 500 MG TAB.ER.24H 1000 MG PO (17:18)
[2024-02-02 20:00] VITALS: BP 116/68; PULSE 77; RESP 14; TEMP 36.6; O2SAT 96
[2024-02-02] MEDS: Insulin Glargine,Hum.rec.anlog 100 UNIT/ML 10 ML VIAL 20 UNIT SUBCUT (21:03)
[2024-02-02] MEDS: lamoTRIgine 100 MG TABLET 150 MG PO (21:04)
[2024-02-02] MEDS: hydrOXYzine HCL 25 MG TABLET PO (21:05)
[2024-02-02] MEDS: traZODone HCL 50 MG TABLET PO (21:05)
[2024-02-03] MEDS: Levothyroxine Sodium 150 MCG TABLET PO (05:58)
[2024-02-03 06:33] LABS: Glucose, Whole Blood 110 mg/dL (60-115)
[2024-02-03 07:55] VITALS: BP 133/74; PULSE 84; RESP 18; TEMP 36.1; O2SAT 98
[2024-02-03] MEDS: Sertraline HCL 50 MG TABLET PO (08:22)
[2024-02-03] MEDS: Memantine HCl 5 MG TABLET PO ×2 (08:23→20:47)
[2024-02-03 15:33] VITALS: BP 170/84; PULSE 94; RESP 18; O2SAT 96
--- NOTE | 2024-02-03 16:42 | HO.PSYCHPN ---
Subjective Subjective Date of Service: 02/03/24 Reason For Visit: paranoia cognitive impairment Subjective Notes: Conditional Voluntary Interim History: The nursing staff reported the patient had been compliant with treatment, no changes in mental status still intrusive.. He slept like 8 hours On interview the patient denies new symptoms waiting for placement Mental Status Exam Mental Status Exam Patient Appearance: Appropriate Patient Orientation: Person and Situation Level of Consciousness: Awake and Appropriate Patient Behavior: Guarded and Passive Mood Description: Withdrawn Affect Description: Constricted Patient Cognition Impaired: Yes Ability to Follow Directions: Good Speech Pattern: Clear 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: None Delusions: Not Present Thought Process: Distracted and Slowed Thinking Thought Content: positive for [place] and positive for Poverty of Content Judgement: Fair Diagnostics Vital Signs (24Hr): Vital Signs - 24 hr 02/02/24 20:00 02/03/24 07:55 02/03/24 15:33 Temperature 97.9 F 97 F Pulse Rate 77 84 94 Respiratory Rate 14 18 18 Blood Pressure 116/68 133/74 170/84 H Pulse Oximetry 96 98 96 Oxygen Delivery Method Room Air Room Air Room Air BMI result Body Mass Index 32.4 Labs 09/10/23 20:00 01/30/24 07:28 Labs: Laboratory Results - last 48 hr 02/02/24 02/03/24 06:37 06:01 POC Glucose 126 H 110 Imaging Radiology Impressions: ITS Impressions Brain MRI 09/19/23 20:33 IMPRESSION: 1. No demonstrated acute intracranial abnormalities. 2. Chronic mild to moderate nonspecific white matter changes, most notably in the deep white matter of the right frontal lobe. Mild to moderate generalized cerebral volume loss. Medications Medications Current Medications Acetaminophen (Acetaminophen 325 Mg Tablet) 650 mg PO Q6H PRN PRN Reason: Headache/Pain Mild Scale (1-3) Last Admin: 01/01/24 08:45 Dose: 650 mg Al Hydroxide/Mg Hydroxide (Magnesium Hydrox/Alum Hydrox 30 Ml Oral.Susp) 30 ml PO Q6H PRN PRN Reason: Heartburn/Nausea Last Admin: 11/27/23 10:48 Dose: 30 ml Aripiprazole (Aripiprazole Er 300 Mg Suser.Syr) 300 mg IM Q28D@0900 MANAS Last Admin: 01/08/24 09:00 Dose: 300 mg Benzocaine (Throat Lozenge, Medicated Lozenge) 1 lozenge MUCOUS MEM Q2H PRN PRN Reason: Sore Throat Last Admin: 12/30/23 20:59 Dose: 1 lozenge Benztropine Mesylate (Benztropine Mesylate 0.5 Mg Tablet) 0.5 mg PO TID PRN PRN Reason: Extrapyramidal Effects Glucose (Glucose Gel 15 Gm Gel..Gram.) 15 gm PO Q15M PRN; Protocol PRN Reason: per Hypoglycemia Standing Ord. Guaifenesin/Dextromethorphan (Guaifenesin Dm 100/10/5 Ml 5 Ml Syrup) 5 ml PO Q4H PRN PRN Reason: Cough Last Admin: 01/06/24 22:48 Dose: 5 ml Hydroxyzine HCl (Hydroxyzine Hcl 25 Mg Tablet) 25 mg PO Q6H PRN PRN Reason: Anxiety Last Admin: 02/02/24 21:05 Dose: 25 mg Dextrose (D10) 250 mls @ 750 mls/hr IV Q15M PRN; Protocol PRN Reason: per Hypoglycemia Standing Ord. Insulin Glargine (Insulin Glargine,Hum.Rec.Anlog 100 Unit/Ml 10 Ml Vial) 20 unit SUBCUT BEDTIME [facility] Last Admin: 02/02/24 21:03 Dose: 20 unit Lamotrigine (Lamotrigine 100 Mg Tablet) 150 mg PO BEDTIME [facility] Last Admin: 02/02/24 21:04 Dose: 150 mg Levothyroxine Sodium (Levothyroxine Sodium 150 Mcg Tablet) 150 mcg PO DAILY@0630 [facility] Last Admin: 02/03/24 05:58 Dose: 150 mcg Magnesium Hydroxide (Milk Of Magnesia 30 Ml Oral.Susp) 30 ml PO DAILY PRN PRN Reason: Constipation Memantine (Memantine Hcl 5 Mg Tablet) 5 mg PO BID [facility] Last Admin: 02/03/24 08:23 Dose: 5 mg Metformin HCl (Metformin Hcl Er 500 Mg Tab.Er.24h) 1,000 mg PO DAILY@1700 [facility] Last Admin: 02/02/24 17:18 Dose: 1,000 mg Ondansetron HCl (Ondansetron Odt 8 Mg Tab.Rapdis) 8 mg TRANSLINGU Q8H PRN PRN Reason: Nausea and Vomiting Last Admin: 12/31/23 08:39 Dose: 8 mg Sertraline HCl (Sertraline Hcl 50 Mg Tablet) 50 mg PO DAILY MANAS Last Admin: 02/03/24 08:22 Dose: 50 mg Simethicone (Simethicone 80 Mg Tab.Chew) 80 mg PO QIDWMHS PRN PRN Reason: Gas Trazodone HCl (Trazodone Hcl 50 Mg Tablet) 50 mg PO BEDTIME MRX1 PRN PRN Reason: Insomnia Last Admin: 02/02/24 21:05 Dose: 50 mg Allergies Allergies Allergy/AdvReac Type Severity Reaction Status Date / Time amoxicillin [AMOXICILLIN] Allergy Mild VOMITING/ABD Verified 09/10/23 19:44 PAIN Assessment & Plan Assessment & Plan (1) Schizoaffective disorder: Status: Acute Code(s): F25.9 - Schizoaffective disorder, unspecified (2) Hypothyroidism: Status: Acute Code(s): E03.9 - Hypothyroidism, unspecified (3) Type 2 diabetes mellitus: Status: Acute Code(s): E11.9 - Type 2 diabetes mellitus without complications (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 Plan: CV 15 minute safety checks Continue home medications: Haldol 10mg PO daily Synthroid 200mcg PO daily Obtain labs; A1C/POCs Obtain collateral from sister Obtain records from last hospitalization. MOCA Referral for [facility] services if patient is agreeable. encourage medication compliance;consider VARGAS discharge planning 09/11: Elevated fasting blood sugar elevated hemoglobin A1c 9.2 med consult placed put in point of care needed will start metformin Would benefit from clarity over recent hospitalization what this were done details regarding treatment continue Haldol unclear if patient has Healthcare proxy his [place] was low slowed cognition with poor details in depth at times during blankly regarding making judgments Unclear if any of this relates to past coma or 2 hypothyroidism. He does seem more impaired than when last seen unclear when last imaging was. Continue Haldol [facility] neuro [facility] involvement regarding diagnostic picture. Patient does remain paranoid blunted suspicious apathetic. He might benefit from longer-term placement if available and appropriate at a later time involved [facility] involvement would be quite helpful 09/12: cont haldol get records ? hcp ? start antidep unclear hx 09/13: Keeping to self. More talkative today. Pt concerned he will be transferred to [facility]. Pt stated, The paper I signed yesterday. Are you going to send me back to the last hospital? That place was horrible . Pt was educated he signed a release of information with Dr. Gonzalez to obtain records from [facility]. Pt was given a copy of the release he signed. Despite this, pt continues to be anxious about being transferred. Pt denies SI/HI/VH/AH. 09/14: Keeping to self. active on unit. showered. Pt reports feeling alright today; pt reports he is worried about where I'm going to go . Pt continues concerned he will be transferred to [facility]. Pt denies SI/HI/VH/AH. 09/15:Pt reports feeling alright today; pt continues to report he is worried about where I'm going to go . Responding with brief responses. Guarded. Observed standing in one place for a long period of time. Appears confused. Pt denies SI/HI/VH/AH. T/W spoke to patient's sister, Ros, with patients verbal consent. Ros reports concerns regarding patients ability to make decisions regarding his mental and physical health. She plans on contacting legal advice on obtaining guardianship of patient. 09/16:Patient's presents similar to yesterday's presentation. Responding with brief responses. Guarded. Observed standing in one place for a long period of time, when asked what he is doing, pt stated, I don't know . Pt reports he plans on contacting his sister today and try to convince her for me to stay there . Pt denies SI/HI/VH/AH. Continue current tx plan. 09/17: brief responses. Guarded. 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 Pt denies SI/HI/VH/AH. T/W and Dr. Gonzalez spoke to patient's sister, Ros. Ros stated being [facility] HCP and plans on finding document. She plans on coming to the hospital on Saturday to be present for [facility] intake. 09/21: No changes 09/22:Patient flat apathetic difficult insight and judgment his sister is healthcare proxy if needed patient is accepting medical treatment Referral to [facility] 09/23:Considers starting Haldol Decano[place] patient is agreeable superficially difficulty with exec fx was seen [facility] 09/24:Pt seen in f/u mood flat dysphoric difficulty engaging in conversation preoccupied with thought he wont be living with family thing slowed apathetic no clear response with namenda ? some improvement inc lamictal start low dose sertraline inc lamictal ck tsh 09/25:Start Abilify as augmentation with Haldol see if can be more stimulating regarding depressed mood apathetic limited engagement sertraline 50 mg Lamictal 25 b.i.d. referral to [facility] which would have structure unclear if patient can engage with this he remains quite depressed has delusional beliefs regarding housing and that things have been done he has repeatedly tried to reach out to his sister denies active SI needs much help dressing talking with others encouragement to eat severe thought blocking Abilify might be more stimulating than Haldol which can be more dulling 09/26:Abilify started sertraline Lamictal encouraged step-down to [facility] encourage reality orientation denies active SI 09/27: Continue current regimen and plans 09/28: Continue current regimen and plans. 09/29: Referral to [facility] increase Abilify to 5 mg daily eventually try and taper Haldol sertraline 50 mg daily 09/30:Increase Abilify to 10 mg lower Haldol to 7 mg continue sertraline and Lamictal 10/01:Abilify increased to 10 mg continue to taper Haldol sertraline 100 mg Lamictal increased to 75 mg patient apathetic withdrawn difficulty with placement some paranoia continues difficulty with decision making at times. Not physically aggressive internally preoccupied seems somewhat improved with Abilify sertraline Continue discharge planning 10/02:Patient somewhat blunted flat slowed thinking during the day times staring. Change Abilify to 10 mg at bedtime. Scheduled Haldol will lowered to 2.5 mg Continue sertraline 100 mg Namenda 5 b.i.d. 10/03:Haldol discontinued modafinil low-dose monitor for psychosis or agitation continue discharge planning 10/06: May need to firm healthcare proxy calls have been placed to sister to try to help in discharge planning. Referrals made. Patient cooperative with care 10/07:Pharmacy ordering Abilify maintain a increase modafinil 100 mg patient remains flat passive depressed some improvement noted no current paranoia noted continue discharge planning no current safe discharge plan 10/08: Increase Lamictal 100 mg Abilify Maintena 400 mg hold modafinil unclear if was overly stimulating patient continues to present internally preoccupied. 10/09:Healthcare proxy invoked discharge planning continue Lamictal Abilify pending maintain a 10/10:Healthcare proxy invoked new CV signed discharge planning. 10/11 keep same treatment 10/12 keep same treatment 10/13: Continue plan of care Lamictal Abilify discharge planning sertraline 10/14: stable. continue current mgmt. 10/15: stable. continue current mgmt. 10/16: stable presentation. continue current mgmt. 10/17: as for yesterday. 10/18: no changes. 10/19: stabel, safe. no change. 10/20: no change in presentation. calm, cooperative. active on unit, social with select peers, attending groups. Pt reports feeling alright . denies SI/HI/VH/AH. Social work waiting to hear from possible placement location. Continue current tx plan. 10/21: continue current tx plan. awaiting placement. 10/22: calm, cooperative. active on unit, social with select peers, attending groups. Pt reports feeling good ; pt stated, I'm waiting to see where I'm going . denies SI/HI/VH/AH. Showered with encouragement. 10/23: continue current tx plan. 10/24: calm, cooperative. active on unit, social with select peers, attending groups. Pt reports feeling good ; pt stated, I just want a place to live . 10/25- likely at baseline for him- CTP 10/26 CTP likely needs placement 10/27: continue current tx plan. awaiting placement. 10/28: Similar to yesterday. No change in presentation. 10/29: Pt reports feeling good ;pt stated, just waiting for a place to live . denies any issues at this time. 10/30: calm, cooperative. active on unit, social with select peers, attending groups. Pt reports feeling worried about where I am going to live . denies any issues at this time. 10/21: no change in presentation. continue current tx plan. 11/01: continue current management and treatment plan. 11/02: Continue current management and treatment plan. 11/03: Continue current management and treatment plan. 11/04: Active on unit. calm, cooperative. social with select peers, attending groups. denies any issues at this time. He reports sleeping well. Pt reports he would be interested in applying for [facility] services; social work aware. 11/05: Active on unit. calm, cooperative. social with select peers, attending groups. denies any issues at this time. Pt reports feeling okay ; he reports anxiety regarding placement. Continue current tx plan. 11/07/23 [facility] referral has appropriate concerns re living stuation cont abilify lamictal 11/08/23 Pt cooperative with care d/c planning working with sw cont d/c planning cont lamictal abilify 11/12/23 Patient increasingly despairing aware of no clear discharge plan periods needs cuing for much functioning limited social engaged needs help regarding diabetes and medication compliance reportedly had been rejected by multiple rest homes patient not threatening intermittently hopeless helpless very limited family contact at this time 11/13/23 pt flat depressed hopeless helpless unable to fx without structure 11/15 continue tx. 11/16 continue tx. 11/18/2023 Continue plan of care referral to [facility] TSH low will decrease levothyroxine 11/19/23 Pt flat dysphor ic inc hopeless helpless lamictal 150 hs dec levothyroxine 150 d/c planning cont 11/20/23 lamictal inc d/c planning h referral 12/02/2023 Continue Lamictal Abilify patient cooperative with care gets despairing at times regarding lack of family support problematic discharge planning in relationship to finding suitable structured place to live 12/02: Social with peers. Per nursing, pt did not sleep last night. Pt reports he did not sleeping because he wasn't tired but feel okay ; ordered Ativan 1mg PO bedtime for tonight, pt aware. 12/03: In bed sleeping, pt reports he is catching up on sleep from the night before. Calm, cooperative. T/W and wind up worker, Billie, with pt to discuss possibly going to the [facility]. Pt reports he would like to call his sister and speak to her before deciding. DC Ativan. 12/04: Active on unit, social with peers. attending groups. T/W and wind up worker, Billie, met with pt to discuss discharge plan. Pt reports he doesn't know if he would want to go to a homeless snf; he states he would rather live on the street because I've done it before . Pt encouraged to consider benefits of going to a snf with the winter months coming; he agreed to doing phone intake with child welfare social worker on Saturday with [facility]. 12/05: Pt presents similar to yesterday. Continues to perseverate about [facility] being a snf and not a program; He continues to agree to do phone intake on Saturday. Discussed VARGAS, pt reports he want time to consider d/t not liking needles . 12/08: Pt had phone interview with [facility], however, after multiple attempts at calling them, no one at [facility] picked up the phone to conduct interview. wind up worker to get into contact with them again. Pt denies any issues at this time. 12/09: Active on unit, social with peers. Pt denies any issues at this time. Patient agreed to receiving Abilify Maintena; risks/benefits reviewed. Waiting on placement. 12/10: Patient received Abilify Maintena yesterday. He denies any side effects. Pleasant. Waiting on placement. 12/11: continue current tx plan. 12/12: similar to days prior. waiting on placement. continue current tx plan. 12/13: appearing more depressed or demoralized. notes lots of people come and go. continue current mgmt. 12/14: same as for yesterday: find me a place to live? continue current mgmt. 12/15: out and about more. otherwise stable. continue current mgmt. 15: continue current tx plan. 12/17: continue current tx plan. 12/18: awaiting placement. denies any issues. 12/19: Pt reports feeling alright ; Social work continues to work on placement. Pt denies any issues at this time. Pt reports sleeping well. 12/20: Continue plan of care 12/21: Continue plan of care 12/22: continue current tx plan. 12/23: continue tx plan. 12/24: continue tx plan. 12/25: similar to days prior. waiting on placement. 12/26: Continue current tx plan. 12/27: Continue current management and treatment plan. 12/28: Continue current management and treatment plan. 12/29: In bed, tested positive for Covid. Vomited x1 per nursing. Pt reports feeling okay ; sleeping most of shift. Continue current tx plan. 12/30: Pt reports feeling okay ; continues on isolation d/t being Covid positive. Utilizing IPad. Pt reports sleeping well. denies SI/HI/VH/AH. Has not vomited today. 12/31: Pt reports feeling alright ; pt stated, I still have a stuffy nose, cough and headache but I'm starting to feel better . continues on isolation. denies other issues at this time. Continue current tx plan. 01/01: pt reports covid symptoms are improving. continues waiting on placement. 01/02: Continue tx plan. 01/05/24: no changes. 01/05: Active on unit. Pt reports feeling okay today; denies any issues at this time. pt had meeting with [facility] to be placed on list for temporary placement; pt declined. Dr. Gonzalez to speak to patient regarding this. 01/06: Discussed placement; pt reports he is thinking about saying yes to the motel . pt reports he does not believe his sister or child welfare social worker that he has money saved in the bank. Pt believes if he left to go to the motel he would be stuck there with no money . Social work to discuss with pt. 01/07: Active on unit. social with peers. denies any issues. Pt reports feeling okay ; reports he is still thinking about where he will go after discharge. 01/08: waiting on placement. continue current tx plan. 01/09: Patient continues to wait on placement. 119: Continue current management and treatment plan. 03/13: Continue current management and treatment plan. 01/12: waiting on placement. 01/13: continue current tx plan. 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 noted on the unit to fixate on certain female peers. 01/24 continues with impaired insight/judgement- risk to others requiring inpatient and 1;1 01/25 given poor insight and stalking behavior continues to need inpt level of stay 02/01/24 Patient with odd affect feels safe in this setting requires structured setting given neurocognitive behavioral difficulties Plan 1. Continue with same treatment. 2. Waiting for placement Reason for continued inpatient stay Substantial Risk for: inability to function, rapid decompensation and med/psych decompensation Time Spent With Patient Time: Total time managing care of this patient today __20__ minutes.
[2024-02-03] MEDS: metFORMIN HCl ER 500 MG TAB.ER.24H 1000 MG PO (17:06)
[2024-02-03 20:00] VITALS: BP 129/79; PULSE 87; RESP 18; TEMP 35.7; O2SAT 97
[2024-02-03] MEDS: lamoTRIgine 100 MG TABLET 150 MG PO (20:45)
[2024-02-03] MEDS: Insulin Glargine,Hum.rec.anlog 100 UNIT/ML 10 ML VIAL 20 UNIT SUBCUT (20:45)
[2024-02-03] MEDS: traZODone HCL 50 MG TABLET PO ×2 (20:47→22:56)
[2024-02-03] MEDS: hydrOXYzine HCL 25 MG TABLET PO (20:47)
[2024-02-04] MEDS: Levothyroxine Sodium 150 MCG TABLET PO (06:08)
[2024-02-04 06:41] LABS: Glucose, Whole Blood 77 mg/dL (60-115)
[2024-02-04] MEDS: Memantine HCl 5 MG TABLET PO ×2 (08:17→20:49)
[2024-02-04] MEDS: Sertraline HCL 50 MG TABLET PO (08:17)
[2024-02-04 08:19] VITALS: BP 130/80; PULSE 88; TEMP 36.9; O2SAT 100
[2024-02-04] MEDS: metFORMIN HCl ER 500 MG TAB.ER.24H 1000 MG PO (16:22)
--- NOTE | 2024-02-04 16:42 | P.PNPSI_ITS ---
Subjective Subjective Date of Service: 02/04/24 Reason For Visit: paranoia cognitive impairment Subjective Notes: Conditional Voluntary Interim History: The nursing staff reported new symptoms pleasant, slept 7 hours. The occupational therapist reported that now he accepts redirection. On interview the patient denies new symptoms, waiting for placement. Mental Status Exam Mental Status Exam Patient Appearance: Well Grooomed and Appropriate Patient Orientation: Person and Situation Level of Consciousness: Awake and Appropriate Patient Behavior: Guarded and Passive Mood Description: Withdrawn Affect Description: Constricted Patient Cognition Impaired: Yes Ability to Follow Directions: Good Speech Pattern: Clear 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: None Delusions: Not Present Thought Process: Distracted and Slowed Thinking Thought Content: positive for [place] and positive for Poverty of Content Judgement: Poor Diagnostics Vital Signs (24Hr): Vital Signs - 24 hr 02/03/24 20:00 02/04/24 08:19 Temperature 96.3 F L 98.4 F Pulse Rate 87 88 Respiratory Rate 18 Blood Pressure 129/79 130/80 Pulse Oximetry 97 100 Oxygen Delivery Method Room Air Room Air BMI result Body Mass Index 32.4 Labs 09/10/23 20:00 01/30/24 07:28 Labs: Laboratory Results - last 48 hr 02/03/24 02/04/24 06:01 06:22 POC Glucose 110 77 Imaging Radiology Impressions: ITS Impressions Brain MRI 09/19/23 20:33 IMPRESSION: 1. No demonstrated acute intracranial abnormalities. 2. Chronic mild to moderate nonspecific white matter changes, most notably in the deep white matter of the right frontal lobe. Mild to moderate generalized cerebral volume loss. Medications Medications Current Medications Acetaminophen (Acetaminophen 325 Mg Tablet) 650 mg PO Q6H PRN PRN Reason: Headache/Pain Mild Scale (1-3) Last Admin: 01/01/24 08:45 Dose: 650 mg Al Hydroxide/Mg Hydroxide (Magnesium Hydrox/Alum Hydrox 30 Ml Oral.Susp) 30 ml PO Q6H PRN PRN Reason: Heartburn/Nausea Last Admin: 11/27/23 10:48 Dose: 30 ml Aripiprazole (Aripiprazole Er 300 Mg Suser.Syr) 300 mg IM Q28D@0900 MANAS Last Admin: 01/08/24 09:00 Dose: 300 mg Benzocaine (Throat Lozenge, Medicated Lozenge) 1 lozenge MUCOUS MEM Q2H PRN PRN Reason: Sore Throat Last Admin: 12/30/23 20:59 Dose: 1 lozenge Benztropine Mesylate (Benztropine Mesylate 0.5 Mg Tablet) 0.5 mg PO TID PRN PRN Reason: Extrapyramidal Effects Glucose (Glucose Gel 15 Gm Gel..Gram.) 15 gm PO Q15M PRN; Protocol PRN Reason: per Hypoglycemia Standing Ord. Guaifenesin/Dextromethorphan (Guaifenesin Dm 100/10/5 Ml 5 Ml Syrup) 5 ml PO Q4H PRN PRN Reason: Cough Last Admin: 01/06/24 22:48 Dose: 5 ml Hydroxyzine HCl (Hydroxyzine Hcl 25 Mg Tablet) 25 mg PO Q6H PRN PRN Reason: Anxiety Last Admin: 02/03/24 20:47 Dose: 25 mg Dextrose (D10) 250 mls @ 750 mls/hr IV Q15M PRN; Protocol PRN Reason: per Hypoglycemia Standing Ord. Insulin Glargine (Insulin Glargine,Hum.Rec.Anlog 100 Unit/Ml 10 Ml Vial) 20 unit SUBCUT BEDTIME [facility] Last Admin: 02/03/24 20:45 Dose: 20 unit Lamotrigine (Lamotrigine 100 Mg Tablet) 150 mg PO BEDTIME [facility] Last Admin: 02/03/24 20:45 Dose: 150 mg Levothyroxine Sodium (Levothyroxine Sodium 150 Mcg Tablet) 150 mcg PO DAILY@0630 [facility] Last Admin: 02/04/24 06:08 Dose: 150 mcg Magnesium Hydroxide (Milk Of Magnesia 30 Ml Oral.Susp) 30 ml PO DAILY PRN PRN Reason: Constipation Memantine (Memantine Hcl 5 Mg Tablet) 5 mg PO BID [facility] Last Admin: 02/04/24 08:17 Dose: 5 mg Metformin HCl (Metformin Hcl Er 500 Mg Tab.Er.24h) 1,000 mg PO DAILY@1700 [facility] Last Admin: 02/04/24 16:22 Dose: 1,000 mg Ondansetron HCl (Ondansetron Odt 8 Mg Tab.Rapdis) 8 mg TRANSLINGU Q8H PRN PRN Reason: Nausea and Vomiting Last Admin: 12/31/23 08:39 Dose: 8 mg Sertraline HCl (Sertraline Hcl 50 Mg Tablet) 50 mg PO DAILY [facility] Last Admin: 02/04/24 08:17 Dose: 50 mg Simethicone (Simethicone 80 Mg Tab.Chew) 80 mg PO QIDWMHS PRN PRN Reason: Gas Trazodone HCl (Trazodone Hcl 50 Mg Tablet) 50 mg PO BEDTIME MRX1 PRN PRN Reason: Insomnia Last Admin: 02/03/24 22:56 Dose: 50 mg Allergies Allergies Allergy/AdvReac Type Severity Reaction Status Date / Time amoxicillin [AMOXICILLIN] Allergy Mild VOMITING/ABD Verified 09/10/23 19:44 PAIN Assessment & Plan Assessment & Plan (1) Schizoaffective disorder: Status: Acute Code(s): F25.9 - Schizoaffective disorder, unspecified (2) Hypothyroidism: Status: Acute Code(s): E03.9 - Hypothyroidism, unspecified (3) Type 2 diabetes mellitus: Status: Acute Code(s): E11.9 - Type 2 diabetes mellitus without complications (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 Plan: CV 15 minute safety checks Continue home medications: Haldol 10mg PO daily Synthroid 200mcg PO daily Obtain labs; A1C/POCs Obtain collateral from sister Obtain records from last hospitalization. MOCA Referral for DMH services if patient is agreeable. encourage medication compliance;consider VARGAS discharge planning 09/11: Elevated fasting blood sugar elevated hemoglobin A1c 9.2 med consult placed put in point of care needed will start metformin Would benefit from clarity over recent hospitalization what this were done details regarding treatment continue Haldol unclear if patient has Healthcare proxy his [place] was low slowed cognition with poor details in depth at times during blankly regarding making judgments Unclear if any of this relates to past coma or 2 hypothyroidism. He does seem more impaired than when last seen unclear when last imaging was. Continue Haldol sitter neuro indira involvement regarding diagnostic picture. Patient does remain paranoid blunted suspicious apathetic. He might benefit from longer- term placement if available and appropriate at a later time involved [facility] involvement would be quite helpful 09/12: cont haldol get records ? hcp ? start antidep unclear hx 09/13: Keeping to self. More talkative today. Pt concerned he will be transferred to [facility]. Pt stated, The paper I signed yesterday. Are you going to send me back to the last hospital? That place was horrible . Pt was educated he signed a release of information with Dr. Gonzalez to obtain records from [facility]. Pt was given a copy of the release he signed. Despite this, pt continues to be anxious about being transferred. Pt denies SI/HI/VH/AH. 09/14: Keeping to self. active on unit. showered. Pt reports feeling alright today; pt reports he is worried about where I'm going to go . Pt continues concerned he will be transferred to [facility]. Pt denies SI/HI/VH/AH. 09/15:Pt reports feeling alright today; pt continues to report he is worried about where I'm going to go . Responding with brief responses. Guarded. Observed standing in one place for a long period of time. Appears confused. Pt denies SI/HI/VH/AH. T/W spoke to patient's sister, Ros, with patients verbal consent. Ros reports concerns regarding patients ability to make decisions regarding his mental and physical health. She plans on contacting legal advice on obtaining guardianship of patient. 09/16:Patient's presents similar to yesterday's presentation. Responding with brief responses. Guarded. Observed standing in one place for a long period of time, when asked what he is doing, pt stated, I don't know . Pt reports he plans on contacting his sister today and try to convince her for me to stay there . Pt denies SI/HI/VH/AH. Continue current tx plan. 09/17: brief responses. Guarded. 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 Pt denies SI/HI/VH/AH. T/W and Dr. Gonzalez spoke to patient's sister, Ros. Ros stated being [facility] HCP and plans on finding document. She plans on coming to the hospital on Saturday to be present for [facility] intake. 09/21: No changes 09/22:Patient flat apathetic difficult insight and judgment his sister is healthcare proxy if needed patient is accepting medical treatment Referral to [facility] 09/23:Considers starting Haldol Decanoate patient is agreeable superficially difficulty with exec fx was seen [facility] 09/24:Pt seen in f/u mood flat dysphoric difficulty engaging in conversation preoccupied with thought he wont be living with family thing slowed apathetic no clear response with namenda ? some improvement inc lamictal start low dose sertraline inc lamictal ck tsh 09/25:Start Abilify as augmentation with Haldol see if can be more stimulating regarding depressed mood apathetic limited engagement sertraline 50 mg Lamictal 25 b.i.d. [facility] unclear if patient can engage with this he remains quite depressed has delusional beliefs regarding housing and that things have been done he has repeatedly tried to reach out to his sister denies active SI needs much help dressing talking with others encouragement to eat severe thought blocking Abilify might be more stimulating than Haldol which can be more dulling 09/26:Abilify started sertraline Lamictal encouraged step-down to [facility] encourage reality orientation denies active SI 09/27: Continue current regimen and plans 09/28: Continue current regimen and plans. 09/29: Referral to [facility] [place] increase Abilify to 5 mg daily eventually try and taper Haldol sertraline 50 mg daily 09/30:Increase Abilify to 10 mg lower Haldol to 7 mg continue sertraline and Lamictal 10/01:Abilify increased to 10 mg continue to taper Haldol sertraline 100 mg Lamictal increased to 75 mg patient apathetic withdrawn difficulty with placement some paranoia continues difficulty with decision making at times. Not physically aggressive internally preoccupied seems somewhat improved with Abilify sertraline Continue discharge planning 10/02:Patient somewhat blunted flat slowed thinking during the day times staring. Change Abilify to 10 mg at bedtime. Scheduled Haldol will lowered to 2.5 mg Continue sertraline 100 mg Namenda 5 b.i.d. 10/03:Haldol discontinued modafinil low-dose monitor for psychosis or agitation continue discharge planning 10/06: May need to firm healthcare proxy calls have been placed to sister to try to help in discharge planning. Referrals made. Patient cooperative with care 10/07:Pharmacy ordering Abilify maintain a increase modafinil 100 mg patient remains flat passive depressed some improvement noted no current paranoia noted continue discharge planning no current safe discharge plan 10/08: Increase Lamictal 100 mg Abilify Maintena 400 mg hold modafinil unclear if was overly stimulating patient continues to present internally preoccupied. 10/09:Healthcare proxy invoked discharge planning continue Lamictal Abilify pending maintain a 10/10:Healthcare proxy invoked new CV signed discharge planning. 10/11 keep same treatment 10/12 keep same treatment 10/13: Continue plan of care Lamictal Abilify discharge planning sertraline 10/14: stable. continue current mgmt. 10/15: stable. continue current mgmt. 10/16: stable presentation. continue current mgmt. 10/17: as for yesterday. 10/18: no changes. 10/19: stabel, safe. no change. 10/20: no change in presentation. calm, cooperative. active on unit, social with select peers, attending groups. Pt reports feeling alright . denies SI/HI/VH/AH. Social work waiting to hear from possible placement location. Continue current tx plan. 10/21: continue current tx plan. awaiting placement. 10/22: calm, cooperative. active on unit, social with select peers, attending groups. Pt reports feeling good ; pt stated, I'm waiting to see where I'm going . denies SI/HI/VH/AH. Showered with encouragement. 10/23: continue current tx plan. 10/24: calm, cooperative. active on unit, social with select peers, attending groups. Pt reports feeling good ; pt stated, I just want a place to live . 10/25- likely at baseline for him- CTP 10/26 CTP likely needs placement 10/27: continue current tx plan. awaiting placement. 10/28: Similar to yesterday. No change in presentation. 10/29: Pt reports feeling good ;pt stated, just waiting for a place to live . denies any issues at this time. 10/30: calm, cooperative. active on unit, social with select peers, attending groups. Pt reports feeling worried about where I am going to live . denies any issues at this time. 10/21: no change in presentation. continue current tx plan. 11/01: continue current management and treatment plan. 11/02: Continue current management and treatment plan. 11/03: Continue current management and treatment plan. 11/04: Active on unit. calm, cooperative. social with select peers, attending groups. denies any issues at this time. He reports sleeping well. Pt reports he would be interested in applying for [facility] services; social work aware. 11/05: Active on unit. calm, cooperative. social with select peers, attending groups. denies any issues at this time. Pt reports feeling okay ; he reports anxiety regarding placement. Continue current tx plan. 11/07/23 [facility] referral has appropriate concerns re living stuation cont abilify lamictal 11/08/23 Pt cooperative with care d/c planning working with cont d/c planning cont lamictal abilify 11/12/23 Patient increasingly despairing aware of no clear discharge plan periods needs cuing for much functioning limited social engaged needs help regarding diabetes and medication compliance reportedly had been rejected by multiple rest homes patient not threatening intermittently hopeless helpless very limited family contact at this time 11/13/23 pt flat depressed hopeless helpless unable to fx without structure 11/15 continue tx. 11/16 continue tx. 11/18/2023 Continue plan of care referral to [facility] TSH low will decrease levothyroxine 11/19/23 Pt flat dysphor ic inc hopeless helpless lamictal 150 hs dec levothyroxine 150 d/c planning cont 11/20/23 lamictal inc d/c planning [facility] referral 12/02/2023 Continue Lamictal Abilify patient cooperative with care gets despairing at times regarding lack of family support problematic discharge planning in relationship to finding suitable structured place to live 12/02: Social with peers. Per nursing, pt did not sleep last night. Pt reports he did not sleeping because he wasn't tired but feel okay ; ordered Ativan 1mg PO bedtime for tonight, pt aware. 12/03: In bed sleeping, pt reports he is catching up on sleep from the night before. Calm, cooperative. T/W and alteration worker, Billie, with pt to discuss possibly going to the [facility]. Pt reports he would like to call his sister and speak to her before deciding. DC Ativan. 12/04: Active on unit, social with peers. attending groups. T/W and alteration worker, Billie, met with pt to discuss discharge plan. Pt reports he doesn't know if he would want to go to a homeless long-term; he states he would rather live on the street because I've done it before . Pt encouraged to consider benefits of going to a long-term with the winter months coming; he agreed to doing phone intake with social services director on Saturday with [facility]. 12/05: Pt presents similar to yesterday. Continues to perseverate about [facility] being a long-term and not a program; He continues to agree to do phone intake on Saturday. Discussed VARGAS, pt reports he want time to consider d/t not liking needles . 12/08: Pt had phone interview with [facility], however, after multiple attempts at calling them, no one at [facility] picked up the phone to conduct interview. alteration worker to get into contact with them again. Pt denies any issues at this time. 12/09: Active on unit, social with peers. Pt denies any issues at this time. Patient agreed to receiving Abilify Maintena; risks/benefits reviewed. Waiting on placement. 12/10: Patient received Abilify Maintena yesterday. He denies any side effects. Pleasant. Waiting on placement. 12/11: continue current tx plan. 12/12: similar to days prior. waiting on placement. continue current tx plan. 12/13: appearing more depressed or demoralized. notes lots of people come and go. continue current mgmt. 12/14: same as for yesterday: find me a place to live? continue current mgmt. 12/15: out and about more. otherwise stable. continue current mgmt. 12/16: continue current tx plan. 12/17: continue current tx plan. 12/18: awaiting placement. denies any issues. 12/19: Pt reports feeling alright ; Social work continues to work on placement. Pt denies any issues at this time. Pt reports sleeping well. 12/20: Continue plan of care 12/21: Continue plan of care 12/22: continue current tx plan. 12/23: continue tx plan. 12/24: continue tx plan. 12/25: similar to days prior. waiting on placement. 12/26: Continue current tx plan. 12/27: Continue current management and treatment plan. 12/28: Continue current management and treatment plan. 12/29: In bed, tested positive for Covid. Vomited x1 per nursing. Pt reports feeling okay ; sleeping most of shift. Continue current tx plan. 12/30: Pt reports feeling okay ; continues on isolation d/t being Covid positive. Utilizing IPad. Pt reports sleeping well. denies SI/HI/VH/AH. Has not vomited today. 12/31: Pt reports feeling alright ; pt stated, I still have a stuffy nose, cough and headache but I'm starting to feel better . continues on isolation. denies other issues at this time. Continue current tx plan. 01/01: pt reports covid symptoms are improving. continues waiting on placement. 01/02: Continue tx plan. 01/05/24: no changes. 01/05: Active on unit. Pt reports feeling okay today; denies any issues at this time. pt had meeting with [facility] to be placed on list for temporary placement; pt declined. Dr. Gonzalez to speak to patient regarding this. 01/06: Discussed placement; pt reports he is thinking about saying yes to the motel . pt reports he does not believe his sister or social services director that he has money saved in the bank. Pt believes if he left to go to the motel he would be stuck there with no money . Social work to discuss with pt. 01/07: Active on unit. social with peers. denies any issues. Pt reports feeling okay ; reports he is still thinking about where he will go after discharge. 01/08: waiting on placement. continue current tx plan. 01/09: Patient continues to wait on placement. 119: Continue current management and treatment plan. 03/13: Continue current management and treatment plan. 01/12: waiting on placement. 01/13: continue current tx plan. 11/16: Continue current regimen and plans for stabilization and medication management 01/18: Continue current regimen and plans for stabilization and medication management and placement 01/22- Reviewing his chart- noted that on MRI right frontal atrophy- lesions on this part of the brain, known to cause syndromes of misidentification(past s/s of people being impostors), stalking behaviors. noted on the unit to fixate on certain female peers. 01/24 continues with impaired insight/judgement- risk to others requiring inpatient and 1;1 01/25 given poor insight and stalking behavior continues to need inpt level of stay 02/01/24 Patient with odd affect feels safe in this setting requires structured setting given neurocognitive behavioral difficulties Plan 1. Continue with same treatment. 2. Waiting for placement Reason for continued inpatient stay Substantial Risk for: inability to function, rapid decompensation and med/psych decompensation Time Spent With Patient Time: Total time managing care of this patient today __20__ minutes.
[2024-02-04 20:00] VITALS: BP 113/72; PULSE 81; RESP 16; TEMP 36; O2SAT 96
[2024-02-04] MEDS: lamoTRIgine 100 MG TABLET 150 MG PO (20:48)
[2024-02-04] MEDS: hydrOXYzine HCL 25 MG TABLET PO (20:49)
[2024-02-04] MEDS: traZODone HCL 50 MG TABLET PO (20:49)
[2024-02-04] MEDS: Insulin Glargine,Hum.rec.anlog 100 UNIT/ML 10 ML VIAL 20 UNIT SUBCUT (20:49)
[2024-02-05] MEDS: Levothyroxine Sodium 150 MCG TABLET PO (06:36)
[2024-02-05 07:16] LABS: Glucose, Whole Blood 113 mg/dL (60-115)
[2024-02-05 08:00] VITALS: BP 115/62; PULSE 75; RESP 19; TEMP 37.1; O2SAT 98
[2024-02-05] MEDS: Memantine HCl 5 MG TABLET PO ×2 (08:07→20:30)
[2024-02-05] MEDS: Sertraline HCL 50 MG TABLET PO (08:08)
[2024-02-05] MEDS: ARIPIPRAZOLE 300 MG IM (10:14)
--- NOTE | 2024-02-05 13:41 | HO.PSYCHPN ---
Subjective Subjective Date of Service: 02/05/24 Reason For Visit: paranoia cognitive impairment Subjective Notes: Conditional Voluntary Interim History: The nursing staff reported no changes in mental status compliant with treatment. On interview the patient denies new symptoms, waiting for placement. Mental Status Exam Mental Status Exam Patient Appearance: Appropriate Patient Orientation: Person and Situation Level of Consciousness: Awake and Appropriate Patient Behavior: Guarded and Passive Mood Description: Withdrawn Affect Description: Constricted Patient Cognition Impaired: Yes Ability to Follow Directions: Good Speech Pattern: Clear 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: None Delusions: Ideas of Reference Thought Process: Distracted and Slowed Thinking Thought Content: positive for [place] and positive for Poverty of Content Judgement: Fair Diagnostics Vital Signs (24Hr): Vital Signs - 24 hr 02/04/24 20:00 02/05/24 08:00 Temperature 96.8 F 98.8 F Pulse Rate 81 75 Respiratory Rate 16 19 Blood Pressure 113/72 115/62 Pulse Oximetry 96 98 Oxygen Delivery Method Room Air Room Air BMI result Body Mass Index 32.4 Labs 09/10/23 20:00 01/30/24 07:28 Labs: Laboratory Results - last 48 hr 02/04/24 02/05/24 06:22 06:53 POC Glucose 77 113 Imaging Radiology Impressions: ITS Impressions Brain MRI 09/19/23 20:33 IMPRESSION: 1. No demonstrated acute intracranial abnormalities. 2. Chronic mild to moderate nonspecific white matter changes, most notably in the deep white matter of the right frontal lobe. Mild to moderate generalized cerebral volume loss. Medications Medications Current Medications Acetaminophen (Acetaminophen 325 Mg Tablet) 650 mg PO Q6H PRN PRN Reason: Headache/Pain Mild Scale (1-3) Last Admin: 01/01/24 08:45 Dose: 650 mg Al Hydroxide/Mg Hydroxide (Magnesium Hydrox/Alum Hydrox 30 Ml Oral.Susp) 30 ml PO Q6H PRN PRN Reason: Heartburn/Nausea Last Admin: 11/27/23 10:48 Dose: 30 ml Aripiprazole (Aripiprazole Er 300 Mg Suser.Syr) 300 mg IM Q28D@0900 MANAS Last Admin: 02/05/24 10:14 Dose: 300 mg Benzocaine (Throat Lozenge, Medicated Lozenge) 1 lozenge MUCOUS MEM Q2H PRN PRN Reason: Sore Throat Last Admin: 12/30/23 20:59 Dose: 1 lozenge Benztropine Mesylate (Benztropine Mesylate 0.5 Mg Tablet) 0.5 mg PO TID PRN PRN Reason: Extrapyramidal Effects Glucose (Glucose Gel 15 Gm Gel..Gram.) 15 gm PO Q15M PRN; Protocol PRN Reason: per Hypoglycemia Standing Ord. Guaifenesin/Dextromethorphan (Guaifenesin Dm 100/10/5 Ml 5 Ml Syrup) 5 ml PO Q4H PRN PRN Reason: Cough Last Admin: 01/06/24 22:48 Dose: 5 ml Hydroxyzine HCl (Hydroxyzine Hcl 25 Mg Tablet) 25 mg PO Q6H PRN PRN Reason: Anxiety Last Admin: 02/04/24 20:49 Dose: 25 mg Dextrose (D10) 250 mls @ 750 mls/hr IV Q15M PRN; Protocol PRN Reason: per Hypoglycemia Standing Ord. Insulin Glargine (Insulin Glargine,Hum.Rec.Anlog 100 Unit/Ml 10 Ml Vial) 20 unit SUBCUT BEDTIME [facility] Last Admin: 02/04/24 20:49 Dose: 20 unit Lamotrigine (Lamotrigine 100 Mg Tablet) 150 mg PO BEDTIME [facility] Last Admin: 02/04/24 20:48 Dose: 150 mg Levothyroxine Sodium (Levothyroxine Sodium 150 Mcg Tablet) 150 mcg PO DAILY@0630 [facility] Last Admin: 02/05/24 06:36 Dose: 150 mcg Magnesium Hydroxide (Milk Of Magnesia 30 Ml Oral.Susp) 30 ml PO DAILY PRN PRN Reason: Constipation Memantine (Memantine Hcl 5 Mg Tablet) 5 mg PO BID [facility] Last Admin: 02/05/24 08:07 Dose: 5 mg Metformin HCl (Metformin Hcl Er 500 Mg Tab.Er.24h) 1,000 mg PO DAILY@1700 [facility] Last Admin: 02/04/24 16:22 Dose: 1,000 mg Ondansetron HCl (Ondansetron Odt 8 Mg Tab.Rapdis) 8 mg TRANSLINGU Q8H PRN PRN Reason: Nausea and Vomiting Last Admin: 12/31/23 08:39 Dose: 8 mg Sertraline HCl (Sertraline Hcl 50 Mg Tablet) 50 mg PO DAILY [facility] Last Admin: 02/05/24 08:08 Dose: 50 mg Simethicone (Simethicone 80 Mg Tab.Chew) 80 mg PO QIDWMHS PRN PRN Reason: Gas Trazodone HCl (Trazodone Hcl 50 Mg Tablet) 50 mg PO BEDTIME MRX1 PRN PRN Reason: Insomnia Last Admin: 02/04/24 20:49 Dose: 50 mg Allergies Allergies Allergy/AdvReac Type Severity Reaction Status Date / Time amoxicillin [AMOXICILLIN] Allergy Mild VOMITING/ABD Verified 09/10/23 19:44 PAIN Assessment & Plan Assessment & Plan (1) Schizoaffective disorder: Status: Acute Code(s): F25.9 - Schizoaffective disorder, unspecified (2) Hypothyroidism: Status: Acute Code(s): E03.9 - Hypothyroidism, unspecified (3) Type 2 diabetes mellitus: Status: Acute Code(s): E11.9 - Type 2 diabetes mellitus without complications (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 Plan: CV 15 minute safety checks Continue home medications: Haldol 10mg PO daily Synthroid 200mcg PO daily Obtain labs; A1C/POCs Obtain collateral from sister Obtain records from last hospitalization. MOCA Referral for [facility] services if patient is agreeable. encourage medication compliance;consider VARGAS discharge planning 09/11: Elevated fasting blood sugar elevated hemoglobin A1c 9.2 med consult placed put in point of care needed will start metformin Would benefit from clarity over recent hospitalization what this were done details regarding treatment continue Haldol unclear if patient has Healthcare proxy his Jbphh was low slowed cognition with poor details in depth at times during blankly regarding making judgments Unclear if any of this relates to past coma or 2 hypothyroidism. He does seem more impaired than when last seen unclear when last imaging was. Continue Haldol sitter neuro indira involvement regarding diagnostic picture. Patient does remain paranoid blunted suspicious apathetic. He might benefit from longer-term placement if available and appropriate at a later time involved [facility] involvement would be quite helpful 09/12: cont haldol get records ? hcp ? start antidep unclear hx 09/13: Keeping to self. More talkative today. Pt concerned he will be transferred to [facility]. Pt stated, The paper I signed yesterday. Are you going to send me back to the last hospital? That place was horrible . Pt was educated he signed a release of information with Dr. Gonzalez to obtain records from [facility]. Pt was given a copy of the release he signed. Despite this, pt continues to be anxious about being transferred. Pt denies SI/HI/VH/AH. 09/14: Keeping to self. active on unit. showered. Pt reports feeling alright today; pt reports he is worried about where I'm going to go . Pt continues concerned he will be transferred to [facility]. Pt denies SI/HI/VH/AH. 09/15:Pt reports feeling alright today; pt continues to report he is worried about where I'm going to go . Responding with brief responses. Guarded. Observed standing in one place for a long period of time. Appears confused. Pt denies SI/HI/VH/AH. T/W spoke to patient's sister, Ros, with patients verbal consent. Ros reports concerns regarding patients ability to make decisions regarding his mental and physical health. She plans on contacting legal advice on obtaining guardianship of patient. 09/16:Patient's presents similar to yesterday's presentation. Responding with brief responses. Guarded. Observed standing in one place for a long period of time, when asked what he is doing, pt stated, I don't know . Pt reports he plans on contacting his sister today and try to convince her for me to stay there . Pt denies SI/HI/VH/AH. Continue current tx plan. 09/17: brief responses. Guarded. 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 Pt denies SI/HI/VH/AH. T/W and Dr. Gonzalez spoke to patient's sister, Ros. Ros stated being [facility] HCP and plans on finding document. She plans on coming to the hospital on Saturday to be present for [facility] intake. 09/21: No changes 09/22:Patient flat apathetic difficult insight and judgment his sister is healthcare proxy if needed patient is accepting medical treatment Referral to [facility] 09/23:Considers starting Haldol Decanoate patient is agreeable superficially difficulty with exec fx was seen [facility] 09/24:Pt seen in f/u mood flat dysphoric difficulty engaging in conversation preoccupied with thought he wont be living with family thing slowed apathetic no clear response with namenda ? some improvement inc lamictal start low dose sertraline inc lamictal ck tsh 09/25:Start Abilify as augmentation with Haldol see if can be more stimulating regarding depressed mood apathetic limited engagement sertraline 50 mg Lamictal 25 b.i.d. [facility] unclear if patient can engage with this he remains quite depressed has delusional beliefs regarding housing and that things have been done he has repeatedly tried to reach out to his sister denies active SI needs much help dressing talking with others encouragement to eat severe thought blocking Abilify might be more stimulating than Haldol which can be more dulling 09/26:Abilify started sertraline Lamictal encouraged step-down to [facility] encourage reality orientation denies active SI 09/27: Continue current regimen and plans 09/28: Continue current regimen and plans. 09/29: Referral to [facility] increase Abilify to 5 mg daily eventually try and taper Haldol sertraline 50 mg daily 09/30:Increase Abilify to 10 mg lower Haldol to 7 mg continue sertraline and Lamictal 10/01:Abilify increased to 10 mg continue to taper Haldol sertraline 100 mg Lamictal increased to 75 mg patient apathetic withdrawn difficulty with placement some paranoia continues difficulty with decision making at times. Not physically aggressive internally preoccupied seems somewhat improved with Abilify sertraline Continue discharge planning 10/02:Patient somewhat blunted flat slowed thinking during the day times staring. Change Abilify to 10 mg at bedtime. Scheduled Haldol will lowered to 2.5 mg Continue sertraline 100 mg Namenda 5 b.i.d. 10/03:Haldol discontinued modafinil low-dose monitor for psychosis or agitation continue discharge planning 10/06: May need to firm healthcare proxy calls have been placed to sister to try to help in discharge planning. Referrals made. Patient cooperative with care 10/07:Pharmacy ordering Abilify maintain a increase modafinil 100 mg patient remains flat passive depressed some improvement noted no current paranoia noted continue discharge planning no current safe discharge plan 10/08: Increase Lamictal 100 mg Abilify Maintena 400 mg hold modafinil unclear if was overly stimulating patient continues to present internally preoccupied. 10/09:Healthcare proxy invoked discharge planning continue Lamictal Abilify pending maintain a 10/10:Healthcare proxy invoked new CV signed discharge planning. 10/11 keep same treatment 10/12 keep same treatment 10/13: Continue plan of care Lamictal Abilify discharge planning sertraline 10/14: stable. continue current mgmt. 10/15: stable. continue current mgmt. 10/16: stable presentation. continue current mgmt. 10/17: as for yesterday. 10/18: no changes. 10/19: stabel, safe. no change. 10/20: no change in presentation. calm, cooperative. active on unit, social with select peers, attending groups. Pt reports feeling alright . denies SI/HI/VH/AH. Social work waiting to hear from possible placement location. Continue current tx plan. 10/21: continue current tx plan. awaiting placement. 10/22: calm, cooperative. active on unit, social with select peers, attending groups. Pt reports feeling good ; pt stated, I'm waiting to see where I'm going . denies SI/HI/VH/AH. Showered with encouragement. 10/23: continue current tx plan. 10/24: calm, cooperative. active on unit, social with select peers, attending groups. Pt reports feeling good ; pt stated, I just want a place to live . 10/25- likely at baseline for him- CTP 10/26 CTP likely needs placement 10/27: continue current tx plan. awaiting placement. 10/28: Similar to yesterday. No change in presentation. 10/29: Pt reports feeling good ;pt stated, just waiting for a place to live . denies any issues at this time. 10/30: calm, cooperative. active on unit, social with select peers, attending groups. Pt reports feeling worried about where I am going to live . denies any issues at this time. 10/21: no change in presentation. continue current tx plan. 11/01: continue current management and treatment plan. 11/02: Continue current management and treatment plan. 11/03: Continue current management and treatment plan. 11/04: Active on unit. calm, cooperative. social with select peers, attending groups. denies any issues at this time. He reports sleeping well. Pt reports he would be interested in applying for [facility] services; social work aware. 11/05: Active on unit. calm, cooperative. social with select peers, attending groups. denies any issues at this time. Pt reports feeling okay ; he reports anxiety regarding placement. Continue current tx plan. 11/07/23 [facility] referral has appropriate concerns re living stuation cont abilify lamictal 11/08/23 Pt cooperative with care d/c planning working with cont d/c planning cont lamictal abilify 11/12/23 Patient increasingly despairing aware of no clear discharge plan periods needs cuing for much functioning limited social engaged needs help regarding diabetes and medication compliance reportedly had been rejected by multiple rest homes patient not threatening intermittently hopeless helpless very limited family contact at this time 11/13/23 pt flat depressed hopeless helpless unable to fx without structure 11/15 continue tx. 11/16 continue tx. 11/18/2023 Continue plan of care referral to [facility] TSH low will decrease levothyroxine 11/19/23 Pt flat dysphor ic inc hopeless helpless lamictal 150 hs dec levothyroxine 150 d/c planning cont 11/20/23 lamictal inc d/c planning [facility] referral 12/02/2023 Continue Lamictal Abilify patient cooperative with care gets despairing at times regarding lack of family support problematic discharge planning in relationship to finding suitable structured place to live 12/02: Social with peers. Per nursing, pt did not sleep last night. Pt reports he did not sleeping because he wasn't tired but feel okay ; ordered Ativan 1mg PO bedtime for tonight, pt aware. 12/03: In bed sleeping, pt reports he is catching up on sleep from the night before. Calm, cooperative. T/W and insulation worker interior surface, Billie, with pt to discuss possibly going to the [facility]. Pt reports he would like to call his sister and speak to her before deciding. DC Ativan. 12/04: Active on unit, social with peers. attending groups. T/W and insulation worker interior surface, Billie, met with pt to discuss discharge plan. Pt reports he doesn't know if he would want to go to a homeless skilled nursing; he states he would rather live on the street because I've done it before . Pt encouraged to consider benefits of going to a skilled nursing with the winter months coming; he agreed to doing phone intake with social services specialist on Saturday with [facility]. 12/05: Pt presents similar to yesterday. Continues to perseverate about [facility] being a skilled nursing and not a program; He continues to agree to do phone intake on Saturday. Discussed VARGAS, pt reports he want time to consider d/t not liking needles . 12/08: Pt had phone interview with [facility], however, after multiple attempts at calling them, no one at [facility] picked up the phone to conduct interview. insulation worker interior surface to get into contact with them again. Pt denies any issues at this time. 12/09: Active on unit, social with peers. Pt denies any issues at this time. Patient agreed to receiving Abilify Maintena; risks/benefits reviewed. Waiting on placement. 12/10: Patient received Abilify Maintena yesterday. He denies any side effects. Pleasant. Waiting on placement. 12/11: continue current tx plan. 12/12: similar to days prior. waiting on placement. continue current tx plan. 12/13: appearing more depressed or demoralized. notes lots of people come and go. continue current mgmt. 12/14: same as for yesterday: find me a place to live? continue current mgmt. 12/15: out and about more. otherwise stable. continue current mgmt. 12/16: continue current tx plan. 12/17: continue current tx plan. 12/18: awaiting placement. denies any issues. 12/19: Pt reports feeling alright ; Social work continues to work on placement. Pt denies any issues at this time. Pt reports sleeping well. 12/20: Continue plan of care 12/21: Continue plan of care 12/22: continue current tx plan. 12/23: continue tx plan. 12/24: continue tx plan. 12/25: similar to days prior. waiting on placement. 12/26: Continue current tx plan. 12/27: Continue current management and treatment plan. 12/28: Continue current management and treatment plan. 12/29: In bed, tested positive for Covid. Vomited x1 per nursing. Pt reports feeling okay ; sleeping most of shift. Continue current tx plan. 12/30: Pt reports feeling okay ; continues on isolation d/t being Covid positive. Utilizing IPad. Pt reports sleeping well. denies SI/HI/VH/AH. Has not vomited today. 12/31: Pt reports feeling alright ; pt stated, I still have a stuffy nose, cough and headache but I'm starting to feel better . continues on isolation. denies other issues at this time. Continue current tx plan. 01/01: pt reports covid symptoms are improving. continues waiting on placement. 01/02: Continue tx plan. 01/05/24: no changes. 01/05: Active on unit. Pt reports feeling okay today; denies any issues at this time. pt had meeting with [facility] to be placed on list for temporary placement; pt declined. Dr. Gonzalez to speak to patient regarding this. 01/06: Discussed placement; pt reports he is thinking about saying yes to the motel . pt reports he does not believe his sister or social services specialist that he has money saved in the bank. Pt believes if he left to go to the motel he would be stuck there with no money . Social work to discuss with pt. 01/07: Active on unit. social with peers. denies any issues. Pt reports feeling okay ; reports he is still thinking about where he will go after discharge. 01/08: waiting on placement. continue current tx plan. 01/09: Patient continues to wait on placement. 119: Continue current management and treatment plan. 03/13: Continue current management and treatment plan. 01/12: waiting on placement. 01/13: continue current tx plan. 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 noted on the unit to fixate on certain female peers. 01/24 continues with impaired insight/judgement- risk to others requiring inpatient and 1;1 01/25 given poor insight and stalking behavior continues to need inpt level of stay 02/01/24 Patient with odd affect feels safe in this setting requires structured setting given neurocognitive behavioral difficulties Plan 1. Continue with same treatment. 2. Waiting for placement Reason for continued inpatient stay Substantial Risk for: inability to function, rapid decompensation and med/psych decompensation Time Spent With Patient Time: Total time managing care of this patient today _20___ minutes.
[2024-02-05] MEDS: metFORMIN HCl ER 500 MG TAB.ER.24H 1000 MG PO (17:31)
[2024-02-05 20:00] VITALS: BP 133/70; PULSE 81; RESP 16; TEMP 36.4; O2SAT 98
[2024-02-05] MEDS: lamoTRIgine 100 MG TABLET 150 MG PO (20:29)
[2024-02-05] MEDS: Insulin Glargine,Hum.rec.anlog 100 UNIT/ML 10 ML VIAL 20 UNIT SUBCUT (20:29)
[2024-02-05] MEDS: traZODone HCL 50 MG TABLET PO ×2 (20:37→23:17)
[2024-02-05] MEDS: hydrOXYzine HCL 25 MG TABLET PO (23:17)
[2024-02-06] MEDS: Levothyroxine Sodium 150 MCG TABLET PO (06:51)
[2024-02-06 07:00] VITALS: BMI 32.5
[2024-02-06 07:55] VITALS: BP 130/73; PULSE 90; RESP 18; TEMP 36.6; O2SAT 97
[2024-02-06] MEDS: Sertraline HCL 50 MG TABLET PO (08:11)
[2024-02-06] MEDS: Memantine HCl 5 MG TABLET PO ×2 (08:11→19:59)
[2024-02-06 09:00] LABS: Creatinine Clr Calc Pharmacy 83.5; Estimated Glomerular Filt Rate > 60
--- NOTE | 2024-02-06 14:14 | HO.PSYCHPN ---
Subjective Subjective Date of Service: 02/06/24 Reason For Visit: paranoia cognitive impairment Subjective Notes: Conditional Voluntary Interim History: The nursing staff reported the patient had been flat, declined to engage but later on he was social in the evening. Slept 7 hours. On interview the patient denies new symptoms, waiting for placement. Mental Status Exam Mental Status Exam Patient Appearance: Appropriate Patient Orientation: Person and Situation Level of Consciousness: Awake and Appropriate Patient Behavior: Guarded and Passive Mood Description: Withdrawn Affect Description: Constricted Patient Cognition Impaired: Yes Ability to Follow Directions: Good Speech Pattern: Clear 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: None Delusions: Not Present Thought Process: Distracted and Slowed Thinking Judgement: Poor Diagnostics Vital Signs (24Hr): Vital Signs - 24 hr 02/05/24 20:00 02/06/24 07:55 Temperature 97.6 F 97.9 F Pulse Rate 81 90 Respiratory Rate 16 18 Blood Pressure 133/70 130/73 Pulse Oximetry 98 97 Oxygen Delivery Method Room Air Room Air BMI result Body Mass Index 32.4 Labs 09/10/23 20:00 02/06/24 08:43 Labs: Laboratory Results - last 48 hr 02/05/24 02/06/24 06:53 08:43 Creatinine 1.10 Estim Creat Clear Calc 83.5 Estimated GFR > 60 POC Glucose 113 Imaging Radiology Impressions: ITS Impressions Brain MRI 09/19/23 20:33 IMPRESSION: 1. No demonstrated acute intracranial abnormalities. 2. Chronic mild to moderate nonspecific white matter changes, most notably in the deep white matter of the right frontal lobe. Mild to moderate generalized cerebral volume loss. Medications Medications Current Medications Acetaminophen (Acetaminophen 325 Mg Tablet) 650 mg PO Q6H PRN PRN Reason: Headache/Pain Mild Scale (1-3) Last Admin: 01/01/24 08:45 Dose: 650 mg Al Hydroxide/Mg Hydroxide (Magnesium Hydrox/Alum Hydrox 30 Ml Oral.Susp) 30 ml PO Q6H PRN PRN Reason: Heartburn/Nausea Last Admin: 11/27/23 10:48 Dose: 30 ml Aripiprazole (Aripiprazole Er 300 Mg Suser.Syr) 300 mg IM Q28D@0900 MANAS Last Admin: 02/05/24 10:14 Dose: 300 mg Benzocaine (Throat Lozenge, Medicated Lozenge) 1 lozenge MUCOUS MEM Q2H PRN PRN Reason: Sore Throat Last Admin: 12/30/23 20:59 Dose: 1 lozenge Benztropine Mesylate (Benztropine Mesylate 0.5 Mg Tablet) 0.5 mg PO TID PRN PRN Reason: Extrapyramidal Effects Glucose (Glucose Gel 15 Gm Gel..Gram.) 15 gm PO Q15M PRN; Protocol PRN Reason: per Hypoglycemia Standing Ord. Guaifenesin/Dextromethorphan (Guaifenesin Dm 100/10/5 Ml 5 Ml Syrup) 5 ml PO Q4H PRN PRN Reason: Cough Last Admin: 01/06/24 22:48 Dose: 5 ml Hydroxyzine HCl (Hydroxyzine Hcl 25 Mg Tablet) 25 mg PO Q6H PRN PRN Reason: Anxiety Last Admin: 02/05/24 23:17 Dose: 25 mg Dextrose (D10) 250 mls @ 750 mls/hr IV Q15M PRN; Protocol PRN Reason: per Hypoglycemia Standing Ord. Insulin Glargine (Insulin Glargine,Hum.Rec.Anlog 100 Unit/Ml 10 Ml Vial) 20 unit SUBCUT BEDTIME [facility] Last Admin: 02/05/24 20:29 Dose: 20 unit Lamotrigine (Lamotrigine 100 Mg Tablet) 150 mg PO BEDTIME [facility] Last Admin: 02/05/24 20:29 Dose: 150 mg Levothyroxine Sodium (Levothyroxine Sodium 150 Mcg Tablet) 150 mcg PO DAILY@0630 [facility] Last Admin: 02/06/24 06:51 Dose: 150 mcg Magnesium Hydroxide (Milk Of Magnesia 30 Ml Oral.Susp) 30 ml PO DAILY PRN PRN Reason: Constipation Memantine (Memantine Hcl 5 Mg Tablet) 5 mg PO BID [facility] Last Admin: 02/06/24 08:11 Dose: 5 mg Metformin HCl (Metformin Hcl Er 500 Mg Tab.Er.24h) 1,000 mg PO DAILY@1700 [facility] Last Admin: 02/05/24 17:31 Dose: 1,000 mg Ondansetron HCl (Ondansetron Odt 8 Mg Tab.Rapdis) 8 mg TRANSLINGU Q8H PRN PRN Reason: Nausea and Vomiting Last Admin: 12/31/23 08:39 Dose: 8 mg Sertraline HCl (Sertraline Hcl 50 Mg Tablet) 50 mg PO DAILY MANAS Last Admin: 02/06/24 08:11 Dose: 50 mg Simethicone (Simethicone 80 Mg Tab.Chew) 80 mg PO QIDWMHS PRN PRN Reason: Gas Trazodone HCl (Trazodone Hcl 50 Mg Tablet) 50 mg PO BEDTIME MRX1 PRN PRN Reason: Insomnia Last Admin: 02/05/24 23:17 Dose: 50 mg Allergies Allergies Allergy/AdvReac Type Severity Reaction Status Date / Time amoxicillin [AMOXICILLIN] Allergy Mild VOMITING/ABD Verified 09/10/23 19:44 PAIN Assessment & Plan Assessment & Plan (1) Schizoaffective disorder: Status: Acute Code(s): F25.9 - Schizoaffective disorder, unspecified (2) Hypothyroidism: Status: Acute Code(s): E03.9 - Hypothyroidism, unspecified (3) Type 2 diabetes mellitus: Status: Acute Code(s): E11.9 - Type 2 diabetes mellitus without complications (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 Plan: CV 15 minute safety checks Continue home medications: Haldol 10mg PO daily Synthroid 200mcg PO daily Obtain labs; A1C/POCs Obtain collateral from sister Obtain records from last hospitalization. MOCA Referral for [facility] services if patient is agreeable. encourage medication compliance;consider VARGAS discharge planning 09/11: Elevated fasting blood sugar elevated hemoglobin A1c 9.2 med consult placed put in point of care needed will start metformin Would benefit from clarity over recent hospitalization what this were done details regarding treatment continue Haldol unclear if patient has Healthcare proxy his [place] was low slowed cognition with poor details in depth at times during blankly regarding making judgments Unclear if any of this relates to past coma or 2 hypothyroidism. He does seem more impaired than when last seen unclear when last imaging was. Continue Haldol sitter neuro indira involvement regarding diagnostic picture. Patient does remain paranoid blunted suspicious apathetic. He might benefit from longer-term placement if available and appropriate at a later time involved [facility] involvement would be quite helpful 09/12: cont haldol get records ? hcp ? start antidep unclear hx 09/13: Keeping to self. More talkative today. Pt concerned he will be transferred to [facility]. Pt stated, The paper I signed yesterday. Are you going to send me back to the last hospital? That place was horrible . Pt was educated he signed a release of information with Dr. Gonzalez to obtain records from [facility]. Pt was given a copy of the release he signed. Despite this, pt continues to be anxious about being transferred. Pt denies SI/HI/VH/AH. 09/14: Keeping to self. active on unit. showered. Pt reports feeling alright today; pt reports he is worried about where I'm going to go . Pt continues concerned he will be transferred to [facility]. Pt denies SI/HI/VH/AH. 09/15:Pt reports feeling alright today; pt continues to report he is worried about where I'm going to go . Responding with brief responses. Guarded. Observed standing in one place for a long period of time. Appears confused. Pt denies SI/HI/VH/AH. T/W spoke to patient's sister, Ros, with patients verbal consent. Ros reports concerns regarding patients ability to make decisions regarding his mental and physical health. She plans on contacting legal advice on obtaining guardianship of patient. 09/16:Patient's presents similar to yesterday's presentation. Responding with brief responses. Guarded. Observed standing in one place for a long period of time, when asked what he is doing, pt stated, I don't know . Pt reports he plans on contacting his sister today and try to convince her for me to stay there . Pt denies SI/HI/VH/AH. Continue current tx plan. 09/17: brief responses. Guarded. 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 Pt denies SI/HI/VH/AH. T/W and Dr. Gonzalez spoke to patient's sister, Ros. Ros stated being [facility] HCP and plans on finding document. She plans on coming to the hospital on Saturday to be present for [facility] intake. 09/21: No changes 09/22:Patient flat apathetic difficult insight and judgment his sister is healthcare proxy if needed patient is accepting medical treatment [facility]erral [facility] 09/23:Considers starting Haldol Decanoate patient is agreeable superficially difficulty with exec fx was seen [facility] 09/24:Pt seen in f/u mood flat dysphoric difficulty engaging in conversation preoccupied with thought he wont be living with family thing slowed apathetic no clear response with namenda ? some improvement inc lamictal start low dose sertraline inc lamictal ck tsh 09/25:Start Abilify as augmentation with Haldol see if can be more stimulating regarding depressed mood apathetic limited engagement sertraline 50 mg Lamictal 25 b.i.d. referral to [facility] which would have structure unclear if patient can engage with this he remains quite depressed has delusional beliefs regarding housing and that things have been done he has repeatedly tried to reach out to his sister denies active SI needs much help dressing talking with others encouragement to eat severe thought blocking Abilify might be more stimulating than Haldol which can be more dulling 09/26:Abilify started sertraline Lamictal encouraged step-down to [facility] encourage reality orientation denies active SI 09/27: Continue current regimen and plans 09/28: Continue current regimen and plans. 09/29: Referral to [facility] increase Abilify to 5 mg daily eventually try and taper Haldol sertraline 50 mg daily 09/30:Increase Abilify to 10 mg lower Haldol to 7 mg continue sertraline and Lamictal 10/01:Abilify increased to 10 mg continue to taper Haldol sertraline 100 mg Lamictal increased to 75 mg patient apathetic withdrawn difficulty with placement some paranoia continues difficulty with decision making at times. Not physically aggressive internally preoccupied seems somewhat improved with Abilify sertraline Continue discharge planning 10/02:Patient somewhat blunted flat slowed thinking during the day times staring. Change Abilify to 10 mg at bedtime. Scheduled Haldol will lowered to 2.5 mg Continue sertraline 100 mg Namenda 5 b.i.d. 10/03:Haldol discontinued modafinil low-dose monitor for psychosis or agitation continue discharge planning 10/06: May need to firm healthcare proxy calls have been placed to sister to try to help in discharge planning. Referrals made. Patient cooperative with care 10/07:Pharmacy ordering Abilify maintain a increase modafinil 100 mg patient remains flat passive depressed some improvement noted no current paranoia noted continue discharge planning no current safe discharge plan 10/08: Increase Lamictal 100 mg Abilify Maintena 400 mg hold modafinil unclear if was overly stimulating patient continues to present internally preoccupied. 10/09:Healthcare proxy invoked discharge planning continue Lamictal Abilify pending maintain a 10/10:Healthcare proxy invoked new CV signed discharge planning. 10/11 keep same treatment 10/12 keep same treatment 10/13: Continue plan of care Lamictal Abilify discharge planning sertraline 10/14: stable. continue current mgmt. 10/15: stable. continue current mgmt. 10/16: stable presentation. continue current mgmt. 10/17: as for yesterday. 10/18: no changes. 10/19: stabel, safe. no change. 10/20: no change in presentation. calm, cooperative. active on unit, social with select peers, attending groups. Pt reports feeling alright . denies SI/HI/VH/AH. Social work waiting to hear from possible placement location. Continue current tx plan. 10/21: continue current tx plan. awaiting placement. 10/22: calm, cooperative. active on unit, social with select peers, attending groups. Pt reports feeling good ; pt stated, I'm waiting to see where I'm going . denies SI/HI/VH/AH. Showered with encouragement. 10/23: continue current tx plan. 10/24: calm, cooperative. active on unit, social with select peers, attending groups. Pt reports feeling good ; pt stated, I just want a place to live . 10/25- likely at baseline for him- CTP 10/26 CTP likely needs placement 10/27: continue current tx plan. awaiting placement. 10/28: Similar to yesterday. No change in presentation. 10/29: Pt reports feeling good ;pt stated, just waiting for a place to live . denies any issues at this time. 10/30: calm, cooperative. active on unit, social with select peers, attending groups. Pt reports feeling worried about where I am going to live . denies any issues at this time. 10/21: no change in presentation. continue current tx plan. 11/01: continue current management and treatment plan. 11/02: Continue current management and treatment plan. 11/03: Continue current management and treatment plan. 11/04: Active on unit. calm, cooperative. social with select peers, attending groups. denies any issues at this time. He reports sleeping well. Pt reports he would be interested in applying for [facility] services; social work aware. 11/05: Active on unit. calm, cooperative. social with select peers, attending groups. denies any issues at this time. Pt reports feeling okay ; he reports anxiety regarding placement. Continue current tx plan. 11/07/23 [facility] referral has appropriate concerns re living stuation cont abilify lamictal 11/08/23 Pt cooperative with care d/c planning working with cont d/c planning cont lamictal abilify 11/12/23 Patient increasingly despairing aware of no clear discharge plan periods needs cuing for much functioning limited social engaged needs help regarding diabetes and medication compliance reportedly had been rejected by multiple rest homes patient not threatening intermittently hopeless helpless very limited family contact at this time 11/13/23 pt flat depressed hopeless helpless unable to fx without structure 11/15 continue tx. 11/16 continue tx. 11/18/2023 Continue plan of care referral to [facility] TSH low will decrease levothyroxine 11/19/23 Pt flat dysphor ic inc hopeless helpless lamictal 150 hs dec levothyroxine 150 d/c planning cont 11/20/23 lamictal inc d/c planning [facility] referral 12/02/2023 Continue Lamictal Abilify patient cooperative with care gets despairing at times regarding lack of family support problematic discharge planning in relationship to finding suitable structured place to live 12/02: Social with peers. Per nursing, pt did not sleep last night. Pt reports he did not sleeping because he wasn't tired but feel okay ; ordered Ativan 1mg PO bedtime for tonight, pt aware. 12/03: In bed sleeping, pt reports he is catching up on sleep from the night before. Calm, cooperative. T/W and housekeeping laundry worker, Billie, with pt to discuss possibly going to the [facility]. Pt reports he would like to call his sister and speak to her before deciding. DC Ativan. 12/04: Active on unit, social with peers. attending groups. T/W and housekeeping laundry worker, Billie, met with pt to discuss discharge plan. Pt reports he doesn't know if he would want to go to a [place]; he states he would rather live on the street because I've done it before . Pt encouraged to consider benefits of going to a [place] with the winter months coming; he agreed to doing phone intake with [facility] on Saturday with Shaylee Moore. 12/05: Pt presents similar to yesterday. Continues to perseverate about [facility] being a [place] and not a program; He continues to agree to do phone intake on Saturday. Discussed VARGAS, pt reports he want time to consider d/t not liking needles . 12/08: Pt had phone interview with [facility], however, after multiple attempts at calling them, no one at [facility] picked up the phone to conduct interview. housekeeping laundry worker to get into contact with them again. Pt denies any issues at this time. 12/09: Active on unit, social with peers. Pt denies any issues at this time. Patient agreed to receiving Abilify Maintena; risks/benefits reviewed. Waiting on placement. 12/10: Patient received Abilify Maintena yesterday. He denies any side effects. Pleasant. Waiting on placement. 12/11: continue current tx plan. 12/12: similar to days prior. waiting on placement. continue current tx plan. 12/13: appearing more depressed or demoralized. notes lots of people come and go. continue current mgmt. 12/14: same as for yesterday: find me a place to live? continue current mgmt. 12/15: out and about more. otherwise stable. continue current mgmt. 12/16: continue current tx plan. 12/17: continue current tx plan. 12/18: awaiting placement. denies any issues. 12/19: Pt reports feeling alright ; Social work continues to work on placement. Pt denies any issues at this time. Pt reports sleeping well. 12/20: Continue plan of care 12/21: Continue plan of care 12/22: continue current tx plan. 12/23: continue tx plan. 12/24: continue tx plan. 12/25: similar to days prior. waiting on placement. 12/26: Continue current tx plan. 12/27: Continue current management and treatment plan. 12/28: Continue current management and treatment plan. 12/29: In bed, tested positive for Covid. Vomited x1 per nursing. Pt reports feeling okay ; sleeping most of shift. Continue current tx plan. 12/30: Pt reports feeling okay ; continues on isolation d/t being Covid positive. Utilizing IPad. Pt reports sleeping well. denies SI/HI/VH/AH. Has not vomited today. 12/31: Pt reports feeling alright ; pt stated, I still have a stuffy nose, cough and headache but I'm starting to feel better . continues on isolation. denies other issues at this time. Continue current tx plan. 01/01: pt reports covid symptoms are improving. continues waiting on placement. 01/02: Continue tx plan. 01/05/24: no changes. 01/05: Active on unit. Pt reports feeling okay today; denies any issues at this time. pt had meeting with [facility] to be placed on list for temporary placement; pt declined. Dr. Gonzalez to speak to patient regarding this. 01/06: Discussed placement; pt reports he is thinking about saying yes to the motel . pt reports he does not believe his sister or social media marketer that he has money saved in the bank. Pt believes if he left to go to the motel he would be stuck there with no money . Social work to discuss with pt. 01/07: Active on unit. social with peers. denies any issues. Pt reports feeling okay ; reports he is still thinking about where he will go after discharge. 01/08: waiting on placement. continue current tx plan. 01/09: Patient continues to wait on placement. 119: Continue current management and treatment plan. 03/13: Continue current management and treatment plan. 01/12: waiting on placement. 01/13: continue current tx plan. 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 noted on the unit to fixate on certain female peers. 01/24 continues with impaired insight/judgement- risk to others requiring inpatient and 1;1 01/25 given poor insight and stalking behavior continues to need inpt level of stay 02/01/24 Patient with odd affect feels safe in this setting requires structured setting given neurocognitive behavioral difficulties 02/02/24 Pt flat blunted not aggressive but can be intrusive needs help with medication and cueing Plan 1. Continue with same treatment. 2. Waiting for placement Reason for continued inpatient stay Substantial Risk for: inability to function, rapid decompensation and med/psych decompensation Time Spent With Patient Time: Total time managing care of this patient today __20__ minutes.
[2024-02-06 15:41] LABS: Glucose, Whole Blood 145 mg/dL (60-115)
[2024-02-06] MEDS: metFORMIN HCl ER 500 MG TAB.ER.24H 1000 MG PO (16:21)
[2024-02-06] MEDS: lamoTRIgine 100 MG TABLET 150 MG PO (19:59)
[2024-02-06 20:00] VITALS: BP 126/63; PULSE 77; RESP 16; TEMP 36; O2SAT 96
[2024-02-06] MEDS: Insulin Glargine,Hum.rec.anlog 100 UNIT/ML 10 ML VIAL 20 UNIT SUBCUT (20:01)
[2024-02-07] MEDS: Levothyroxine Sodium 150 MCG TABLET PO (05:56)
[2024-02-07 06:37] LABS: Glucose, Whole Blood 107 mg/dL (60-115)
[2024-02-07 08:00] VITALS: BP 156/72; PULSE 84; RESP 18; TEMP 37.1; O2SAT 96
--- NOTE | 2024-02-07 08:12 | P.PNPSI_ITS ---
Subjective Subjective Date of Service: 02/07/24 Reason For Visit: paranoia cognitive impairment Subjective Notes: Conditional Voluntary Interim History: The nursing staff reported the patient had been compliant with treatment, visible in the unit, no changes in mental status. On interview the patient denies new symptoms, waiting for placement. Mental Status Exam Mental Status Exam Patient Appearance: Appropriate Patient Orientation: Person and Situation Level of Consciousness: Awake and Appropriate Patient Behavior: Guarded and Passive Mood Description: Withdrawn Affect Description: Constricted Patient Cognition Impaired: Yes Ability to Follow Directions: Good Speech Pattern: Clear 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: None Delusions: Ideas of Reference Thought Process: Distracted and Slowed Thinking Thought Content: positive for [place] and positive for Poverty of Content Judgement: Fair Diagnostics Vital Signs (24Hr): Vital Signs - 24 hr 02/06/24 20:00 Temperature 96.8 F Pulse Rate 77 Respiratory Rate 16 Blood Pressure 126/63 Pulse Oximetry 96 Oxygen Delivery Method Room Air BMI result Body Mass Index 32.5 Labs 09/10/23 20:00 02/06/24 08:43 Labs: Laboratory Results - last 48 hr 02/06/24 02/06/24 02/07/24 08:43 15:33 05:55 Creatinine 1.10 Estim Creat Clear Calc 83.5 Estimated GFR > 60 POC Glucose 145 H 107 Imaging Radiology Impressions: ITS Impressions Brain MRI 09/19/23 20:33 IMPRESSION: 1. No demonstrated acute intracranial abnormalities. 2. Chronic mild to moderate nonspecific white matter changes, most notably in the deep white matter of the right frontal lobe. Mild to moderate generalized cerebral volume loss. Medications Medications Current Medications Acetaminophen (Acetaminophen 325 Mg Tablet) 650 mg PO Q6H PRN PRN Reason: Headache/Pain Mild Scale (1-3) Last Admin: 01/01/24 08:45 Dose: 650 mg Al Hydroxide/Mg Hydroxide (Magnesium Hydrox/Alum Hydrox 30 Ml Oral.Susp) 30 ml PO Q6H PRN PRN Reason: Heartburn/Nausea Last Admin: 11/27/23 10:48 Dose: 30 ml Aripiprazole (Aripiprazole Er 300 Mg Suser.Syr) 300 mg IM Q28D@0900 MANAS Last Admin: 02/05/24 10:14 Dose: 300 mg Benzocaine (Throat Lozenge, Medicated Lozenge) 1 lozenge MUCOUS MEM Q2H PRN PRN Reason: Sore Throat Last Admin: 12/30/23 20:59 Dose: 1 lozenge Benztropine Mesylate (Benztropine Mesylate 0.5 Mg Tablet) 0.5 mg PO TID PRN PRN Reason: Extrapyramidal Effects Glucose (Glucose Gel 15 Gm Gel..Gram.) 15 gm PO Q15M PRN; Protocol PRN Reason: per Hypoglycemia Standing Ord. Guaifenesin/Dextromethorphan (Guaifenesin Dm 100/10/5 Ml 5 Ml Syrup) 5 ml PO Q4H PRN PRN Reason: Cough Last Admin: 01/06/24 22:48 Dose: 5 ml Hydroxyzine HCl (Hydroxyzine Hcl 25 Mg Tablet) 25 mg PO Q6H PRN PRN Reason: Anxiety Last Admin: 02/05/24 23:17 Dose: 25 mg Dextrose (D10) 250 mls @ 750 mls/hr IV Q15M PRN; Protocol PRN Reason: per Hypoglycemia Standing Ord. Insulin Glargine (Insulin Glargine,Hum.Rec.Anlog 100 Unit/Ml 10 Ml Vial) 20 unit SUBCUT BEDTIME COUNTS INCLUDE 234 BEDS AT THE [facility] Last Admin: 02/06/24 20:01 Dose: 20 unit Lamotrigine (Lamotrigine 100 Mg Tablet) 150 mg PO BEDTIME COUNTS INCLUDE 234 BEDS AT THE [facility] Last Admin: 02/06/24 19:59 Dose: 150 mg Levothyroxine Sodium (Levothyroxine Sodium 150 Mcg Tablet) 150 mcg PO DAILY@0630 COUNTS INCLUDE 234 BEDS AT THE [facility] Last Admin: 02/07/24 05:56 Dose: 150 mcg Magnesium Hydroxide (Milk Of Magnesia 30 Ml Oral.Susp) 30 ml PO DAILY PRN PRN Reason: Constipation Memantine (Memantine Hcl 5 Mg Tablet) 5 mg PO BID COUNTS INCLUDE 234 BEDS AT THE [facility] Last Admin: 02/06/24 19:59 Dose: 5 mg Metformin HCl (Metformin Hcl Er 500 Mg Tab.Er.24h) 1,000 mg PO DAILY@1700 COUNTS INCLUDE 234 BEDS AT THE [facility] Last Admin: 02/06/24 16:21 Dose: 1,000 mg Ondansetron HCl (Ondansetron Odt 8 Mg Tab.Rapdis) 8 mg TRANSLINGU Q8H PRN PRN Reason: Nausea and Vomiting Last Admin: 12/31/23 08:39 Dose: 8 mg Sertraline HCl (Sertraline Hcl 50 Mg Tablet) 50 mg PO DAILY COUNTS INCLUDE 234 BEDS AT THE [facility] Last Admin: 02/06/24 08:11 Dose: 50 mg Simethicone (Simethicone 80 Mg Tab.Chew) 80 mg PO QIDWMHS PRN PRN Reason: Gas Trazodone HCl (Trazodone Hcl 50 Mg Tablet) 50 mg PO BEDTIME MRX1 PRN PRN Reason: Insomnia Last Admin: 02/05/24 23:17 Dose: 50 mg Allergies Allergies Allergy/AdvReac Type Severity Reaction Status Date / Time amoxicillin [AMOXICILLIN] Allergy Mild VOMITING/ABD Verified 09/10/23 19:44 PAIN Assessment & Plan Assessment & Plan (1) Schizoaffective disorder: Status: Acute Code(s): F25.9 - Schizoaffective disorder, unspecified (2) Hypothyroidism: Status: Acute Code(s): E03.9 - Hypothyroidism, unspecified (3) Type 2 diabetes mellitus: Status: Acute Code(s): E11.9 - Type 2 diabetes mellitus without complications (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 Plan: CV 15 minute safety checks Continue home medications: Haldol 10mg PO daily Synthroid 200mcg PO daily Obtain labs; A1C/POCs Obtain collateral from sister Obtain records from last hospitalization. MOCA Referral for [facility] services if patient is agreeable. encourage medication compliance;consider VARGAS discharge planning 09/11: Elevated fasting blood sugar elevated hemoglobin A1c 9.2 med consult placed put in point of care needed will start metformin Would benefit from clarity over recent hospitalization what this were done details regarding treatment continue Haldol unclear if patient has Healthcare proxy his Harney was low slowed cognition with poor details in depth at times during blankly regarding making judgments Unclear if any of this relates to past coma or 2 hypothyroidism. He does seem more impaired than when last seen unclear when last imaging was. Continue Haldol sitter neuro indira involvement regarding diagnostic picture. Patient does remain paranoid blunted suspicious apathetic. He might benefit from longer- term placement if available and appropriate at a later time involved H involvement would be quite helpful 09/12: cont haldol get records ? hcp ? start antidep unclear hx 09/13: Keeping to self. More talkative today. Pt concerned he will be transferred to [facility]. Pt stated, The paper I signed yesterday. Are you going to send me back to the last hospital? That place was horrible . Pt was educated he signed a release of information with Dr. Gonzalez to obtain records from [facility]. Pt was given a copy of the release he signed. Despite this, pt continues to be anxious about being transferred. Pt denies SI/HI/VH/AH. 09/14: Keeping to self. active on unit. showered. Pt reports feeling alright today; pt reports he is worried about where I'm going to go . Pt continues concerned he will be transferred to [facility]. Pt denies SI/HI/VH/AH. 09/15:Pt reports feeling alright today; pt continues to report he is worried about where I'm going to go . Responding with brief responses. Guarded. Observed standing in one place for a long period of time. Appears confused. Pt denies SI/HI/VH/AH. T/W spoke to patient's sister, Ros, with patients verbal consent. Ros reports concerns regarding patients ability to make decisions regarding his mental and physical health. She plans on contacting legal advice on obtaining guardianship of patient. 09/16:Patient's presents similar to yesterday's presentation. Responding with brief responses. Guarded. Observed standing in one place for a long period of time, when asked what he is doing, pt stated, I don't know . Pt reports he plans on contacting his sister today and try to convince her for me to stay there . Pt denies SI/HI/VH/AH. Continue current tx plan. 09/17: brief responses. Guarded. Continues to die sinker one place for a long period of time, when asked what he is doing, pt stated, I don't know . Pt denies SI/HI/VH/AH. T/W and Dr. Gonzalez spoke to patient's sister, Ros. Ros stated being [facility] HCP and plans on finding document. She plans on coming to the hospital on Saturday to be present for [facility] intake. 09/21: No changes 09/22:Patient flat apathetic difficult insight and judgment his sister is healthcare proxy if needed patient is accepting medical treatment [facility] 09/23:Considers starting Haldol Decanoate patient is agreeable superficially difficulty with exec fx was seen [facility] 09/24:Pt seen in f/u mood flat dysphoric difficulty engaging in conversation preoccupied with thought he wont be living with family thing slowed apathetic no clear response with namenda ? some improvement inc lamictal start low dose sertraline inc lamictal ck tsh 09/25:Start Abilify as augmentation with Haldol see if can be more stimulating regarding depressed mood apathetic limited engagement sertraline 50 mg Lamictal 25 b.i.d. referral to [facility] unclear if patient can engage with this he remains quite depressed has delusional beliefs regarding housing and that things have been done he has repeatedly tried to reach out to his sister denies active SI needs much help dressing talking with others encouragement to eat severe thought blocking Abilify might be more stimulating than Haldol which can be more dulling 09/26:Abilify started sertraline Lamictal encouraged step-down to [facility] encourage reality orientation denies active SI 09/27: Continue current regimen and plans 09/28: Continue current regimen and plans. 09/29: Referral to [facility] Salty increase Abilify to 5 mg daily eventually try and taper Haldol sertraline 50 mg daily 09/30:Increase Abilify to 10 mg lower Haldol to 7 mg continue sertraline and Lamictal 10/01:Abilify increased to 10 mg continue to taper Haldol sertraline 100 mg Lamictal increased to 75 mg patient apathetic withdrawn difficulty with placement some paranoia continues difficulty with decision making at times. Not physically aggressive internally preoccupied seems somewhat improved with Abilify sertraline Continue discharge planning 10/02:Patient somewhat blunted flat slowed thinking during the day times staring. Change Abilify to 10 mg at bedtime. Scheduled Haldol will lowered to 2.5 mg Continue sertraline 100 mg Namenda 5 b.i.d. 10/03:Haldol discontinued modafinil low-dose monitor for psychosis or agitation continue discharge planning 10/06: May need to firm healthcare proxy calls have been placed to sister to try to help in discharge planning. Referrals made. Patient cooperative with care 10/07:Pharmacy ordering Abilify maintain a increase modafinil 100 mg patient remains flat passive depressed some improvement noted no current paranoia noted continue discharge planning no current safe discharge plan 10/08: Increase Lamictal 100 mg Abilify Maintena 400 mg hold modafinil unclear if was overly stimulating patient continues to present internally preoccupied. 10/09:Healthcare proxy invoked discharge planning continue Lamictal Abilify pending maintain a 10/10:Healthcare proxy invoked new CV signed discharge planning. 10/11 keep same treatment 10/12 keep same treatment 10/13: Continue plan of care Lamictal Abilify discharge planning sertraline 10/14: stable. continue current mgmt. 10/15: stable. continue current mgmt. 10/16: stable presentation. continue current mgmt. 10/17: as for yesterday. 10/18: no changes. 10/19: stabel, safe. no change. 10/20: no change in presentation. calm, cooperative. active on unit, social with select peers, attending groups. Pt reports feeling alright . denies SI/HI/VH/AH. Social work waiting to hear from possible placement location. Continue current tx plan. 10/21: continue current tx plan. awaiting placement. 10/22: calm, cooperative. active on unit, social with select peers, attending groups. Pt reports feeling good ; pt stated, I'm waiting to see where I'm going . denies SI/HI/VH/AH. Showered with encouragement. 10/23: continue current tx plan. 10/24: calm, cooperative. active on unit, social with select peers, attending groups. Pt reports feeling good ; pt stated, I just want a place to live . 10/25- likely at baseline for him- CTP 10/26 CTP likely needs placement 10/27: continue current tx plan. awaiting placement. 10/28: Similar to yesterday. No change in presentation. 10/29: Pt reports feeling good ;pt stated, just waiting for a place to live . denies any issues at this time. 10/30: calm, cooperative. active on unit, social with select peers, attending groups. Pt reports feeling worried about where I am going to live . denies any issues at this time. 10/21: no change in presentation. continue current tx plan. 11/01: continue current management and treatment plan. 11/02: Continue current management and treatment plan. 11/03: Continue current management and treatment plan. 11/04: Active on unit. calm, cooperative. social with select peers, attending groups. denies any issues at this time. He reports sleeping well. Pt reports he would be interested in applying for [facility] services; social work aware. 11/05: Active on unit. calm, cooperative. social with select peers, attending groups. denies any issues at this time. Pt reports feeling okay ; he reports anxiety regarding placement. Continue current tx plan. 11/07/23 [facility] referral has appropriate concerns re living stuation cont abilify lamictal 11/08/23 Pt cooperative with care d/c planning working with cont d/c planning cont lamictal abilify 11/12/23 Patient increasingly despairing aware of no clear discharge plan periods needs cuing for much functioning limited social engaged needs help regarding diabetes and medication compliance reportedly had been rejected by multiple rest homes patient not threatening intermittently hopeless helpless very limited family contact at this time 11/13/23 pt flat depressed hopeless helpless unable to fx without structure 11/15 continue tx. 11/16 continue tx. 11/18/2023 Continue plan of care referral to [facility] TSH low will decrease levothyroxine 11/19/23 Pt flat dysphor ic inc hopeless helpless lamictal 150 hs dec levothyroxine 150 d/c planning cont 11/20/23 lamictal inc d/c planning [facility] referral 12/02/2023 Continue Lamictal Abilify patient cooperative with care gets despairing at times regarding lack of family support problematic discharge planning in relationship to finding suitable structured place to live 12/02: Social with peers. Per nursing, pt did not sleep last night. Pt reports he did not sleeping because he wasn't tired but feel okay ; ordered Ativan 1mg PO bedtime for tonight, pt aware. 12/03: In bed sleeping, pt reports he is catching up on sleep from the night before. Calm, cooperative. T/W and hospital food service worker, Billie, with pt to discuss possibly going to the [facility]. Pt reports he would like to call his sister and speak to her before deciding. DC Ativan. 12/04: Active on unit, social with peers. attending groups. T/W and hospital food service worker, Billie, met with pt to discuss discharge plan. Pt reports he doesn't know if he would want to go to a homeless fci; he states he would rather live on the street because I've done it before . Pt encouraged to consider benefits of going to a fci with the winter months coming; he agreed to doing phone intake with social media senior associate on Saturday with [facility]. 12/05: Pt presents similar to yesterday. Continues to perseverate about [facility] being a fci and not a program; He continues to agree to do phone intake on Saturday. Discussed VARGAS, pt reports he want time to consider d/t not liking needles . 12/08: Pt had phone interview with [facility], however, after multiple attempts at calling them, no one at [facility] picked up the phone to conduct interview. hospital food service worker to get into contact with them again. Pt denies any issues at this time. 12/09: Active on unit, social with peers. Pt denies any issues at this time. Patient agreed to receiving Abilify Maintena; risks/benefits reviewed. Waiting on placement. 12/10: Patient received Abilify Maintena yesterday. He denies any side effects. Pleasant. Waiting on placement. 12/11: continue current tx plan. 12/12: similar to days prior. waiting on placement. continue current tx plan. 12/13: appearing more depressed or demoralized. notes lots of people come and go. continue current mgmt. 12/14: same as for yesterday: find me a place to live? continue current mgmt. 12/15: out and about more. otherwise stable. continue current mgmt. 12/16: continue current tx plan. 12/17: continue current tx plan. 12/18: awaiting placement. denies any issues. 12/19: Pt reports feeling alright ; Social work continues to work on placement. Pt denies any issues at this time. Pt reports sleeping well. 12/20: Continue plan of care 12/21: Continue plan of care 12/22: continue current tx plan. 12/23: continue tx plan. 12/24: continue tx plan. 12/25: similar to days prior. waiting on placement. 12/26: Continue current tx plan. 12/27: Continue current management and treatment plan. 12/28: Continue current management and treatment plan. 12/29: In bed, tested positive for Covid. Vomited x1 per nursing. Pt reports feeling okay ; sleeping most of shift. Continue current tx plan. 12/30: Pt reports feeling okay ; continues on isolation d/t being Covid positive. Utilizing IPad. Pt reports sleeping well. denies SI/HI/VH/AH. Has not vomited today. 12/31: Pt reports feeling alright ; pt stated, I still have a stuffy nose, cough and headache but I'm starting to feel better . continues on isolation. denies other issues at this time. Continue current tx plan. 01/01: pt reports covid symptoms are improving. continues waiting on placement. 01/02: Continue tx plan. 01/05/24: no changes. 01/05: Active on unit. Pt reports feeling okay today; denies any issues at this time. pt had meeting with [facility] to be placed on list for temporary placement; pt declined. Dr. Gonzalez to speak to patient regarding this. 01/06: Discussed placement; pt reports he is thinking about saying yes to the motel . pt reports he does not believe his sister or social media senior associate that he has money saved in the bank. Pt believes if he left to go to the motel he would be stuck there with no money . Social work to discuss with pt. 01/07: Active on unit. social with peers. denies any issues. Pt reports feeling okay ; reports he is still thinking about where he will go after discharge. 01/08: waiting on placement. continue current tx plan. 01/09: Patient continues to wait on placement. 119: Continue current management and treatment plan. 03/13: Continue current management and treatment plan. 01/12: waiting on placement. 01/13: continue current tx plan. 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 noted on the unit to fixate on certain female peers. 01/24 continues with impaired insight/judgement- risk to others requiring inpatient and 1;1 01/25 given poor insight and stalking behavior continues to need inpt level of stay 02/01/24 Patient with odd affect feels safe in this setting requires structured setting given neurocognitive behavioral difficulties 02/02/24 Pt flat blunted not aggressive but can be intrusive needs help with medication and cueing Plan 1. Continue with same treatment. 2. Waiting for placement Reason for continued inpatient stay Substantial Risk for: inability to function, rapid decompensation and med/psych decompensation Time Spent With Patient Time: Total time managing care of this patient today __20__ minutes.
[2024-02-07] MEDS: Memantine HCl 5 MG TABLET PO ×2 (08:26→20:38)
[2024-02-07] MEDS: Sertraline HCL 50 MG TABLET PO (08:26)
[2024-02-07] MEDS: metFORMIN HCl ER 500 MG TAB.ER.24H 1000 MG PO (16:34)
[2024-02-07 20:00] VITALS: BP 121/57; PULSE 83; RESP 17; TEMP 36.4; O2SAT 96
[2024-02-07] MEDS: Insulin Glargine,Hum.rec.anlog 100 UNIT/ML 10 ML VIAL 20 UNIT SUBCUT (20:37)
[2024-02-07] MEDS: traZODone HCL 50 MG TABLET PO ×2 (20:38→22:24)
[2024-02-07] MEDS: lamoTRIgine 100 MG TABLET 150 MG PO (20:38)
[2024-02-08] MEDS: Levothyroxine Sodium 150 MCG TABLET PO (06:23)
[2024-02-08 06:48] LABS: Glucose, Whole Blood 109 mg/dL (60-115)
[2024-02-08 08:00] VITALS: BP 121/69; PULSE 91; RESP 18; TEMP 36.2; O2SAT 98
--- NOTE | 2024-02-08 08:02 | HO.PSYCHPN ---
Subjective Subjective Date of Service: 02/08/24 Reason For Visit: paranoia cognitive impairment Subjective Notes: Conditional Voluntary Healthcare Proxy: Yes Interim History: The nursing staff reported the patient had been compliant with treatment, visible in the unit, no changes in mental status. Overall no management issues. Visible in the milieu. Denies depression, SI, HI or psychosis. No med concerns. Medication Compliance: Yes Side effects from medications: No Attending Groups: Yes Review of Systems Acute medical concerns: No Review of Systems Review of Systems Unremarkable Mental Status Exam Mental Status Exam Patient Appearance: Appropriate Patient Orientation: Person and Situation Level of Consciousness: Awake and Appropriate Patient Behavior: Guarded and Passive Mood Description: Withdrawn Affect Description: Constricted Patient Cognition Impaired: Yes Ability to Follow Directions: Good Speech Pattern: Clear 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: Shift Mechanic Impaired Diagnostics Vital Signs (24Hr): Vital Signs - 24 hr 02/07/24 20:00 Temperature 97.6 F Pulse Rate 83 Respiratory Rate 17 Blood Pressure 121/57 L Pulse Oximetry 96 Oxygen Delivery Method Room Air BMI result Body Mass Index 32.5 Labs 09/10/23 20:00 02/06/24 08:43 Labs: Laboratory Results - last 48 hr 02/06/24 02/06/24 02/07/24 08:43 15:33 05:55 Creatinine 1.10 Estim Creat Clear Calc 83.5 Estimated GFR > 60 POC Glucose 145 H 107 02/08/24 06:32 Creatinine Estim Creat Clear Calc Estimated GFR POC Glucose 109 Imaging Radiology Impressions: ITS Impressions Brain MRI 09/19/23 20:33 IMPRESSION: 1. No demonstrated acute intracranial abnormalities. 2. Chronic mild to moderate nonspecific white matter changes, most notably in the deep white matter of the right frontal lobe. Mild to moderate generalized cerebral volume loss. Medications Medications Current Medications Acetaminophen (Acetaminophen 325 Mg Tablet) 650 mg PO Q6H PRN PRN Reason: Headache/Pain Mild Scale (1-3) Last Admin: 01/01/24 08:45 Dose: 650 mg Al Hydroxide/Mg Hydroxide (Magnesium Hydrox/Alum Hydrox 30 Ml Oral.Susp) 30 ml PO Q6H PRN PRN Reason: Heartburn/Nausea Last Admin: 11/27/23 10:48 Dose: 30 ml Aripiprazole (Aripiprazole Er 300 Mg Suser.Syr) 300 mg IM Q28D@0900 MANAS Last Admin: 02/05/24 10:14 Dose: 300 mg Benzocaine (Throat Lozenge, Medicated Lozenge) 1 lozenge MUCOUS MEM Q2H PRN PRN Reason: Sore Throat Last Admin: 12/30/23 20:59 Dose: 1 lozenge Benztropine Mesylate (Benztropine Mesylate 0.5 Mg Tablet) 0.5 mg PO TID PRN PRN Reason: Extrapyramidal Effects Glucose (Glucose Gel 15 Gm Gel..Gram.) 15 gm PO Q15M PRN; Protocol PRN Reason: per Hypoglycemia Standing Ord. Guaifenesin/Dextromethorphan (Guaifenesin Dm 100/10/5 Ml 5 Ml Syrup) 5 ml PO Q4H PRN PRN Reason: Cough Last Admin: 01/06/24 22:48 Dose: 5 ml Hydroxyzine HCl (Hydroxyzine Hcl 25 Mg Tablet) 25 mg PO Q6H PRN PRN Reason: Anxiety Last Admin: 02/05/24 23:17 Dose: 25 mg Dextrose (D10) 250 mls @ 750 mls/hr IV Q15M PRN; Protocol PRN Reason: per Hypoglycemia Standing Ord. Insulin Glargine (Insulin Glargine,Hum.Rec.Anlog 100 Unit/Ml 10 Ml Vial) 20 unit SUBCUT BEDTIME [facility] Last Admin: 02/07/24 20:37 Dose: 20 unit Lamotrigine (Lamotrigine 100 Mg Tablet) 150 mg PO BEDTIME [facility] Last Admin: 02/07/24 20:38 Dose: 150 mg Levothyroxine Sodium (Levothyroxine Sodium 150 Mcg Tablet) 150 mcg PO DAILY@0630 [facility] Last Admin: 02/08/24 06:23 Dose: 150 mcg Magnesium Hydroxide (Milk Of Magnesia 30 Ml Oral.Susp) 30 ml PO DAILY PRN PRN Reason: Constipation Memantine (Memantine Hcl 5 Mg Tablet) 5 mg PO BID [facility] Last Admin: 02/07/24 20:38 Dose: 5 mg Metformin HCl (Metformin Hcl Er 500 Mg Tab.Er.24h) 1,000 mg PO DAILY@1700 [facility] Last Admin: 02/07/24 16:34 Dose: 1,000 mg Ondansetron HCl (Ondansetron Odt 8 Mg Tab.Rapdis) 8 mg TRANSLINGU Q8H PRN PRN Reason: Nausea and Vomiting Last Admin: 12/31/23 08:39 Dose: 8 mg Sertraline HCl (Sertraline Hcl 50 Mg Tablet) 50 mg PO DAILY MANAS Last Admin: 02/07/24 08:26 Dose: 50 mg Simethicone (Simethicone 80 Mg Tab.Chew) 80 mg PO QIDWMHS PRN PRN Reason: Gas Trazodone HCl (Trazodone Hcl 50 Mg Tablet) 50 mg PO BEDTIME MRX1 PRN PRN Reason: Insomnia Last Admin: 02/07/24 22:24 Dose: 50 mg Allergies Allergies Allergy/AdvReac Type Severity Reaction Status Date / Time amoxicillin [AMOXICILLIN] Allergy Mild VOMITING/ABD Verified 09/10/23 19:44 PAIN Assessment & Plan Assessment & Plan (1) Schizoaffective disorder: Status: Acute Code(s): F25.9 - Schizoaffective disorder, unspecified (2) Hypothyroidism: Status: Acute Code(s): E03.9 - Hypothyroidism, unspecified (3) Type 2 diabetes mellitus: Status: Acute Code(s): E11.9 - Type 2 diabetes mellitus without complications (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 Plan: CV 15 minute safety checks Continue home medications: Haldol 10mg PO daily Synthroid 200mcg PO daily Obtain labs; A1C/POCs Obtain collateral from sister Obtain records from last hospitalization. MOCA Referral for [facility] services if patient is agreeable. encourage medication compliance;consider VARGAS discharge planning 09/11: Elevated fasting blood sugar elevated hemoglobin A1c 9.2 med consult placed put in point of care needed will start metformin Would benefit from clarity over recent hospitalization what this were done details regarding treatment continue Haldol unclear if patient has Healthcare proxy his [place] was low slowed cognition with poor details in depth at times during blankly regarding making judgments Unclear if any of this relates to past coma or 2 hypothyroidism. He does seem more impaired than when last seen unclear when last imaging was. Continue Haldol sitter neuro indira involvement regarding diagnostic picture. Patient does remain paranoid blunted suspicious apathetic. He might benefit from longer-term placement if available and appropriate at a later time involved [facility] involvement would be quite helpful 09/12: cont haldol get records ? hcp ? start antidep unclear hx 09/13: Keeping to self. More talkative today. Pt concerned he will be transferred to [facility]. Pt stated, The paper I signed yesterday. Are you going to send me back to the last hospital? That place was horrible . Pt was educated he signed a release of information with Dr. Gonzalez to obtain records from [facility]. Pt was given a copy of the release he signed. Despite this, pt continues to be anxious about being transferred. Pt denies SI/HI/VH/AH. 09/14: Keeping to self. active on unit. showered. Pt reports feeling alright today; pt reports he is worried about where I'm going to go . Pt continues concerned he will be transferred to [facility]. Pt denies SI/HI/VH/AH. 09/15:Pt reports feeling alright today; pt continues to report he is worried about where I'm going to go . Responding with brief responses. Guarded. Observed standing in one place for a long period of time. Appears confused. Pt denies SI/HI/VH/AH. T/W spoke to patient's sister, Ros, with patients verbal consent. Ros reports concerns regarding patients ability to make decisions regarding his mental and physical health. She plans on contacting legal advice on obtaining guardianship of patient. 09/16:Patient's presents similar to yesterday's presentation. Responding with brief responses. Guarded. Observed standing in one place for a long period of time, when asked what he is doing, pt stated, I don't know . Pt reports he plans on contacting his sister today and try to convince her for me to stay there . Pt denies SI/HI/VH/AH. Continue current tx plan. 09/17: brief responses. Guarded. Continues to newsstand vendor one place for a long period of time, when asked what he is doing, pt stated, I don't know . Pt denies SI/HI/VH/AH. T/W and Dr. Gonzalez spoke to patient's sister, Ros. Ros stated being [facility] HCP and plans on finding document. She plans on coming to the hospital on Saturday to be present for [facility] intake. 09/21: No changes 09/22:Patient flat apathetic difficult insight and judgment his sister is healthcare proxy if needed patient is accepting medical treatment Referral to [facility] 09/23:Considers starting Haldol Decanoate patient is agreeable superficially difficulty with exec fx was seen [facility] 09/24:Pt seen in f/u mood flat dysphoric difficulty engaging in conversation preoccupied with thought he wont be living with family thing slowed apathetic no clear response with namenda ? some improvement inc lamictal start low dose sertraline inc lamictal ck tsh 09/25:Start Abilify as augmentation with Haldol see if can be more stimulating regarding depressed mood apathetic limited engagement sertraline 50 mg Lamictal 25 b.i.d. referral to [facility] which would have structure unclear if patient can engage with this he remains quite depressed has delusional beliefs regarding housing and that things have been done he has repeatedly tried to reach out to his sister denies active SI needs much help dressing talking with others encouragement to eat severe thought blocking Abilify might be more stimulating than Haldol which can be more dulling 09/26:Abilify started sertraline Lamictal encouraged step-down to [facility] encourage reality orientation denies active SI 09/27: Continue current regimen and plans 09/28: Continue current regimen and plans. 09/29: Referral to [facility] increase Abilify to 5 mg daily eventually try and taper Haldol sertraline 50 mg daily 09/30:Increase Abilify to 10 mg lower Haldol to 7 mg continue sertraline and Lamictal 10/01:Abilify increased to 10 mg continue to taper Haldol sertraline 100 mg Lamictal increased to 75 mg patient apathetic withdrawn difficulty with placement some paranoia continues difficulty with decision making at times. Not physically aggressive internally preoccupied seems somewhat improved with Abilify sertraline Continue discharge planning 10/02:Patient somewhat blunted flat slowed thinking during the day times staring. Change Abilify to 10 mg at bedtime. Scheduled Haldol will lowered to 2.5 mg Continue sertraline 100 mg Namenda 5 b.i.d. 10/03:Haldol discontinued modafinil low-dose monitor for psychosis or agitation continue discharge planning 10/06: May need to firm healthcare proxy calls have been placed to sister to try to help in discharge planning. Referrals made. Patient cooperative with care 10/07:Pharmacy ordering Abilify maintain a increase modafinil 100 mg patient remains flat passive depressed some improvement noted no current paranoia noted continue discharge planning no current safe discharge plan 10/08: Increase Lamictal 100 mg Abilify Maintena 400 mg hold modafinil unclear if was overly stimulating patient continues to present internally preoccupied. 10/09:Healthcare proxy invoked discharge planning continue Lamictal Abilify pending maintain a 10/10:Healthcare proxy invoked new CV signed discharge planning. 10/11 keep same treatment 10/12 keep same treatment 10/13: Continue plan of care Lamictal Abilify discharge planning sertraline 10/14: stable. continue current mgmt. 10/15: stable. continue current mgmt. 10/16: stable presentation. continue current mgmt. 10/17: as for yesterday. 10/18: no changes. 10/19: stabel, safe. no change. 10/20: no change in presentation. calm, cooperative. active on unit, social with select peers, attending groups. Pt reports feeling alright . denies SI/HI/VH/AH. Social work waiting to hear from possible placement location. Continue current tx plan. 10/21: continue current tx plan. awaiting placement. 10/22: calm, cooperative. active on unit, social with select peers, attending groups. Pt reports feeling good ; pt stated, I'm waiting to see where I'm going . denies SI/HI/VH/AH. Showered with encouragement. 10/23: continue current tx plan. 10/24: calm, cooperative. active on unit, social with select peers, attending groups. Pt reports feeling good ; pt stated, I just want a place to live . 10/25- likely at baseline for him- CTP 10/26 CTP likely needs placement 10/27: continue current tx plan. awaiting placement. 10/28: Similar to yesterday. No change in presentation. 10/29: Pt reports feeling good ;pt stated, just waiting for a place to live . denies any issues at this time. 10/30: calm, cooperative. active on unit, social with select peers, attending groups. Pt reports feeling worried about where I am going to live . denies any issues at this time. 10/21: no change in presentation. continue current tx plan. 11/01: continue current management and treatment plan. 11/02: Continue current management and treatment plan. 11/03: Continue current management and treatment plan. 11/04: Active on unit. calm, cooperative. social with select peers, attending groups. denies any issues at this time. He reports sleeping well. Pt reports he would be interested in applying for [facility] services; social work aware. 11/05: Active on unit. calm, cooperative. social with select peers, attending groups. denies any issues at this time. Pt reports feeling okay ; he reports anxiety regarding placement. Continue current tx plan. 11/07/23 [facility] referral has appropriate concerns re living stuation cont abilify lamictal 11/08/23 Pt cooperative with care d/c planning working with cont d/c planning cont lamictal abilify 11/12/23 Patient increasingly despairing aware of no clear discharge plan periods needs cuing for much functioning limited social engaged needs help regarding diabetes and medication compliance reportedly had been rejected by multiple rest homes patient not threatening intermittently hopeless helpless very limited family contact at this time 11/13/23 pt flat depressed hopeless helpless unable to fx without structure 11/15 continue tx. 11/16 continue tx. 11/18/2023 Continue plan of care referral to [facility] TSH low will decrease levothyroxine 11/19/23 Pt flat dysphor ic inc hopeless helpless lamictal 150 hs dec levothyroxine 150 d/c planning cont 11/20/23 lamictal inc d/c planning dmh referral 12/02/2023 Continue Lamictal Abilify patient cooperative with care gets despairing at times regarding lack of family support problematic discharge planning in relationship to finding suitable structured place to live 12/02: Social with peers. Per nursing, pt did not sleep last night. Pt reports he did not sleeping because he wasn't tired but feel okay ; ordered Ativan 1mg PO bedtime for tonight, pt aware. 12/03: In bed sleeping, pt reports he is catching up on sleep from the night before. Calm, cooperative. T/W and cone worker, Billie, with pt to discuss possibly going to the [facility]. Pt reports he would like to call his sister and speak to her before deciding. DC Ativan. 12/04: Active on unit, social with peers. attending groups. T/W and cone worker, Billie, met with pt to discuss discharge plan. Pt reports he doesn't know if he would want to go to a homeless intermediate; he states he would rather live on the street because I've done it before . Pt encouraged to consider benefits of going to a intermediate with the winter months coming; he agreed to doing phone intake with school social worker on Saturday with [facility]. 12/05: Pt presents similar to yesterday. Continues to perseverate about [facility] being a intermediate and not a program; He continues to agree to do phone intake on Saturday. Discussed VARGAS, pt reports he want time to consider d/t not liking needles . 12/08: Pt had phone interview with [facility], however, after multiple attempts at calling them, no one at [facility] picked up the phone to conduct interview. cone worker to get into contact with them again. Pt denies any issues at this time. 12/09: Active on unit, social with peers. Pt denies any issues at this time. Patient agreed to receiving Abilify Maintena; risks/benefits reviewed. Waiting on placement. 12/10: Patient received Abilify Maintena yesterday. He denies any side effects. Pleasant. Waiting on placement. 12/11: continue current tx plan. 12/12: similar to days prior. waiting on placement. continue current tx plan. 12/13: appearing more depressed or demoralized. notes lots of people come and go. continue current mgmt. 12/14: same as for yesterday: find me a place to live? continue current mgmt. 12/15: out and about more. otherwise stable. continue current mgmt. 12/16: continue current tx plan. 12/17: continue current tx plan. 12/18: awaiting placement. denies any issues. 12/19: Pt reports feeling alright ; Social work continues to work on placement. Pt denies any issues at this time. Pt reports sleeping well. 12/20: Continue plan of care 12/21: Continue plan of care 12/22: continue current tx plan. 12/23: continue tx plan. 12/24: continue tx plan. 12/25: similar to days prior. waiting on placement. 12/26: Continue current tx plan. 12/27: Continue current management and treatment plan. 12/28: Continue current management and treatment plan. 12/29: In bed, tested positive for Covid. Vomited x1 per nursing. Pt reports feeling okay ; sleeping most of shift. Continue current tx plan. 12/30: Pt reports feeling okay ; continues on isolation d/t being Covid positive. Utilizing IPad. Pt reports sleeping well. denies SI/HI/VH/AH. Has not vomited today. 12/31: Pt reports feeling alright ; pt stated, I still have a stuffy nose, cough and headache but I'm starting to feel better . continues on isolation. denies other issues at this time. Continue current tx plan. 01/01: pt reports covid symptoms are improving. continues waiting on placement. 01/02: Continue tx plan. 01/05/24: no changes. 01/05: Active on unit. Pt reports feeling okay today; denies any issues at this time. pt had meeting with [facility] to be placed on list for temporary placement; pt declined. Dr. Gonzalez to speak to patient regarding this. 01/06: Discussed placement; pt reports he is thinking about saying yes to the motel . pt reports he does not believe his sister or school social worker that he has money saved in the bank. Pt believes if he left to go to the motel he would be stuck there with no money . Social work to discuss with pt. 01/07: Active on unit. social with peers. denies any issues. Pt reports feeling okay ; reports he is still thinking about where he will go after discharge. 01/08: waiting on placement. continue current tx plan. 01/09: Patient continues to wait on placement. 119: Continue current management and treatment plan. 03/13: Continue current management and treatment plan. 01/12: waiting on placement. 01/13: continue current tx plan. 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 noted on the unit to fixate on certain female peers. 01/24 continues with impaired insight/judgement- risk to others requiring inpatient and 101/25 given poor insight and stalking behavior continues to need inpt level of stay 02/01/24 Patient with odd affect feels safe in this setting requires structured setting given neurocognitive behavioral difficulties 02/02/24 Pt flat blunted not aggressive but can be intrusive needs help with medication and cueing 02/08/2024: Awaiting placement. Without appropriate placement, would lead to rapid decompensation and inability to care for self. Plan 1. Continue with same treatment. 2. Waiting for placement Reason for continued inpatient stay Substantial Risk for: rapid decompensation Time Spent With Patient Time: Total time managing care of this patient today ____ minutes.
[2024-02-08] MEDS: Sertraline HCL 50 MG TABLET PO (08:39)
[2024-02-08] MEDS: Memantine HCl 5 MG TABLET PO ×2 (08:39→20:25)
[2024-02-08] MEDS: metFORMIN HCl ER 500 MG TAB.ER.24H 1000 MG PO (16:45)
[2024-02-08 20:00] VITALS: BP 127/66; PULSE 81; RESP 6; TEMP 36.6; O2SAT 96
[2024-02-08] MEDS: Insulin Glargine,Hum.rec.anlog 100 UNIT/ML 10 ML VIAL 20 UNIT SUBCUT (20:24)
[2024-02-08] MEDS: lamoTRIgine 100 MG TABLET 150 MG PO (20:25)
[2024-02-09] MEDS: Levothyroxine Sodium 150 MCG TABLET PO (06:16)
[2024-02-09 06:37] LABS: Glucose, Whole Blood 123 mg/dL (60-115)
[2024-02-09 08:00] VITALS: BP 120/68; PULSE 68; RESP 18; TEMP 36; O2SAT 98
[2024-02-09] MEDS: Sertraline HCL 50 MG TABLET PO (08:57)
[2024-02-09] MEDS: Memantine HCl 5 MG TABLET PO ×2 (08:57→21:13)
--- NOTE | 2024-02-09 10:08 | HO.PSYCHPN ---
Subjective Subjective Date of Service: 02/09/24 Reason For Visit: paranoia cognitive impairment Subjective Notes: Conditional Voluntary Interim History: Overall no management issues- compliant with treatment, visible in the unit, no changes in mental status. Looking forward to disposition when same in place and denies depression, SI, HI or psychosis. No med concerns. Medication Compliance: Yes Side effects from medications: No Attending Groups: Intermittent Review of Systems Acute medical concerns: No Review of Systems Review of Systems Unremarkable Mental Status Exam Mental Status Exam Patient Appearance: Appropriate Patient Orientation: Person and Situation Level of Consciousness: Awake and Appropriate Patient Behavior: Guarded and Passive Mood Description: Withdrawn Affect Description: Constricted Patient Cognition Impaired: Yes Ability to Follow Directions: Good Speech Pattern: Clear 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: Dishwasher Impaired Diagnostics Vital Signs (24Hr): Vital Signs - 24 hr 02/08/24 20:00 02/09/24 08:00 Temperature 97.8 F 96.8 F Pulse Rate 81 68 Respiratory Rate 6 L 18 Blood Pressure 127/66 120/68 Pulse Oximetry 96 98 Oxygen Delivery Method Room Air Room Air BMI result Body Mass Index 32.5 Labs 09/10/23 20:00 02/06/24 08:43 Labs: Laboratory Results - last 48 hr 02/08/24 02/09/24 06:32 06:15 POC Glucose 109 123 H Imaging Radiology Impressions: ITS Impressions Brain MRI 09/19/23 20:33 IMPRESSION: 1. No demonstrated acute intracranial abnormalities. 2. Chronic mild to moderate nonspecific white matter changes, most notably in the deep white matter of the right frontal lobe. Mild to moderate generalized cerebral volume loss. Medications Medications Current Medications Acetaminophen (Acetaminophen 325 Mg Tablet) 650 mg PO Q6H PRN PRN Reason: Headache/Pain Mild Scale (1-3) Last Admin: 01/01/24 08:45 Dose: 650 mg Al Hydroxide/Mg Hydroxide (Magnesium Hydrox/Alum Hydrox 30 Ml Oral.Susp) 30 ml PO Q6H PRN PRN Reason: Heartburn/Nausea Last Admin: 11/27/23 10:48 Dose: 30 ml Aripiprazole (Aripiprazole Er 300 Mg Suser.Syr) 300 mg IM Q28D@0900 MANAS Last Admin: 02/05/24 10:14 Dose: 300 mg Benzocaine (Throat Lozenge, Medicated Lozenge) 1 lozenge MUCOUS MEM Q2H PRN PRN Reason: Sore Throat Last Admin: 12/30/23 20:59 Dose: 1 lozenge Benztropine Mesylate (Benztropine Mesylate 0.5 Mg Tablet) 0.5 mg PO TID PRN PRN Reason: Extrapyramidal Effects Glucose (Glucose Gel 15 Gm Gel..Gram.) 15 gm PO Q15M PRN; Protocol PRN Reason: per Hypoglycemia Standing Ord. Guaifenesin/Dextromethorphan (Guaifenesin Dm 100/10/5 Ml 5 Ml Syrup) 5 ml PO Q4H PRN PRN Reason: Cough Last Admin: 01/06/24 22:48 Dose: 5 ml Hydroxyzine HCl (Hydroxyzine Hcl 25 Mg Tablet) 25 mg PO Q6H PRN PRN Reason: Anxiety Last Admin: 02/05/24 23:17 Dose: 25 mg Dextrose (D10) 250 mls @ 750 mls/hr IV Q15M PRN; Protocol PRN Reason: per Hypoglycemia Standing Ord. Insulin Glargine (Insulin Glargine,Hum.Rec.Anlog 100 Unit/Ml 10 Ml Vial) 20 unit SUBCUT BEDTIME [facility] Last Admin: 02/08/24 20:24 Dose: 20 unit Lamotrigine (Lamotrigine 100 Mg Tablet) 150 mg PO BEDTIME [facility] Last Admin: 02/08/24 20:25 Dose: 150 mg Levothyroxine Sodium (Levothyroxine Sodium 150 Mcg Tablet) 150 mcg PO DAILY@0630 [facility] Last Admin: 02/09/24 06:16 Dose: 150 mcg Magnesium Hydroxide (Milk Of Magnesia 30 Ml Oral.Susp) 30 ml PO DAILY PRN PRN Reason: Constipation Memantine (Memantine Hcl 5 Mg Tablet) 5 mg PO BID [facility] Last Admin: 02/09/24 08:57 Dose: 5 mg Metformin HCl (Metformin Hcl Er 500 Mg Tab.Er.24h) 1,000 mg PO DAILY@1700 [facility] Last Admin: 02/08/24 16:45 Dose: 1,000 mg Ondansetron HCl (Ondansetron Odt 8 Mg Tab.Rapdis) 8 mg TRANSLINGU Q8H PRN PRN Reason: Nausea and Vomiting Last Admin: 12/31/23 08:39 Dose: 8 mg Sertraline HCl (Sertraline Hcl 50 Mg Tablet) 50 mg PO DAILY [facility] Last Admin: 02/09/24 08:57 Dose: 50 mg Simethicone (Simethicone 80 Mg Tab.Chew) 80 mg PO QIDWMHS PRN PRN Reason: Gas Trazodone HCl (Trazodone Hcl 50 Mg Tablet) 50 mg PO BEDTIME MRX1 PRN PRN Reason: Insomnia Last Admin: 02/07/24 22:24 Dose: 50 mg Allergies Allergies Allergy/AdvReac Type Severity Reaction Status Date / Time amoxicillin [AMOXICILLIN] Allergy Mild VOMITING/ABD Verified 09/10/23 19:44 PAIN Assessment & Plan Assessment & Plan (1) Schizoaffective disorder: Status: Acute Code(s): F25.9 - Schizoaffective disorder, unspecified (2) Hypothyroidism: Status: Acute Code(s): E03.9 - Hypothyroidism, unspecified (3) Type 2 diabetes mellitus: Status: Acute Code(s): E11.9 - Type 2 diabetes mellitus without complications (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 Plan: CV 15 minute safety checks Continue home medications: Haldol 10mg PO daily Synthroid 200mcg PO daily Obtain labs; A1C/POCs Obtain collateral from sister Obtain records from last hospitalization. MOCA Referral for [facility] services if patient is agreeable. encourage medication compliance;consider VARGAS discharge planning 09/11: Elevated fasting blood sugar elevated hemoglobin A1c 9.2 med consult placed put in point of care needed will start metformin Would benefit from clarity over recent hospitalization what this were done details regarding treatment continue Haldol unclear if patient has Healthcare proxy his Catron was low slowed cognition with poor details in depth at times during blankly regarding making judgments Unclear if any of this relates to past coma or 2 hypothyroidism. He does seem more impaired than when last seen unclear when last imaging was. [facility] regarding diagnostic picture. Patient does remain paranoid blunted suspicious apathetic. He might benefit from longer-term placement if available and appropriate at a later time involved H involvement would be quite helpful 09/12: cont haldol get records ? hcp ? start antidep unclear hx 09/13: Keeping to self. More talkative today. Pt concerned he will be transferred to [facility]. Pt stated, The paper I signed yesterday. Are you going to send me back to the last hospital? That place was horrible . Pt was educated he signed a release of information with Dr. Gonzalez to obtain records from [facility]. Pt was given a copy of the release he signed. Despite this, pt continues to be anxious about being transferred. Pt denies SI/HI/VH/AH. 09/14: Keeping to self. active on unit. showered. Pt reports feeling alright today; pt reports he is worried about where I'm going to go . Pt continues concerned he will be transferred to [facility]. Pt denies SI/HI/VH/AH. 09/15:Pt reports feeling alright today; pt continues to report he is worried about where I'm going to go . Responding with brief responses. Guarded. Observed standing in one place for a long period of time. Appears confused. Pt denies SI/HI/VH/AH. T/W spoke to patient's sister, Ros, with patients verbal consent. Ros reports concerns regarding patients ability to make decisions regarding his mental and physical health. She plans on contacting legal advice on obtaining guardianship of patient. 09/16:Patient's presents similar to yesterday's presentation. Responding with brief responses. Guarded. Observed standing in one place for a long period of time, when asked what he is doing, pt stated, I don't know . Pt reports he plans on contacting his sister today and try to convince her for me to stay there . Pt denies SI/HI/VH/AH. Continue current tx plan. 09/17: brief responses. Guarded. 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 Pt denies SI/HI/VH/AH. T/W and Dr. Gonzalez spoke to patient's sister, Ros. Ros stated being [facility] HCP and plans on finding document. She plans on coming to the hospital on Saturday to be present for [facility] intake. 09/21: No changes 09/22:Patient flat apathetic difficult insight and judgment his sister is healthcare proxy if needed patient is accepting medical treatment Referral to [facility] 09/23:Considers starting Haldol Decanoate patient is agreeable superficially difficulty with exec fx was seen [facility] 09/24:Pt seen in f/u mood flat dysphoric difficulty engaging in conversation preoccupied with thought he wont be living with family thing slowed apathetic no clear response with namenda ? some improvement inc lamictal start low dose sertraline inc lamictal ck tsh 09/25:Start Abilify as augmentation with Haldol see if can be more stimulating regarding depressed mood apathetic limited engagement sertraline 50 mg Lamictal 25 b.i.d. referral to [facility] which would have structure unclear if patient can engage with this he remains quite depressed has delusional beliefs regarding housing and that things have been done he has repeatedly tried to reach out to his sister denies active SI needs much help dressing talking with others encouragement to eat severe thought blocking Abilify might be more stimulating than Haldol which can be more dulling 09/26:Abilify started sertraline Lamictal encouraged step-down to [facility] encourage reality orientation denies active SI 09/27: Continue current regimen and plans 09/28: Continue current regimen and plans. 09/29: Referral to [facility] increase Abilify to 5 mg daily eventually try and taper Haldol sertraline 50 mg daily 09/30:Increase Abilify to 10 mg lower Haldol to 7 mg continue sertraline and Lamictal 10/01:Abilify increased to 10 mg continue to taper Haldol sertraline 100 mg Lamictal increased to 75 mg patient apathetic withdrawn difficulty with placement some paranoia continues difficulty with decision making at times. Not physically aggressive internally preoccupied seems somewhat improved with Abilify sertraline Continue discharge planning 10/02:Patient somewhat blunted flat slowed thinking during the day times staring. Change Abilify to 10 mg at bedtime. Scheduled Haldol will lowered to 2.5 mg Continue sertraline 100 mg Namenda 5 b.i.d. 10/03:Haldol discontinued modafinil low-dose monitor for psychosis or agitation continue discharge planning 10/06: May need to firm healthcare proxy calls have been placed to sister to try to help in discharge planning. Referrals made. Patient cooperative with care 10/07:Pharmacy ordering Abilify maintain a increase modafinil 100 mg patient remains flat passive depressed some improvement noted no current paranoia noted continue discharge planning no current safe discharge plan 10/08: Increase Lamictal 100 mg Abilify Maintena 400 mg hold modafinil unclear if was overly stimulating patient continues to present internally preoccupied. 10/09:Healthcare proxy invoked discharge planning continue Lamictal Abilify pending maintain a 10/10:Healthcare proxy invoked new CV signed discharge planning. 10/11 keep same treatment 10/12 keep same treatment 10/13: Continue plan of care Lamictal Abilify discharge planning sertraline 10/14: stable. continue current mgmt. 10/15: stable. continue current mgmt. 10/16: stable presentation. continue current mgmt. 10/17: as for yesterday. 10/18: no changes. 10/19: stabel, safe. no change. 10/20: no change in presentation. calm, cooperative. active on unit, social with select peers, attending groups. Pt reports feeling alright . denies SI/HI/VH/AH. Social work waiting to hear from possible placement location. Continue current tx plan. 10/21: continue current tx plan. awaiting placement. 10/22: calm, cooperative. active on unit, social with select peers, attending groups. Pt reports feeling good ; pt stated, I'm waiting to see where I'm going . denies SI/HI/VH/AH. Showered with encouragement. 10/23: continue current tx plan. 10/24: calm, cooperative. active on unit, social with select peers, attending groups. Pt reports feeling good ; pt stated, I just want a place to live . 10/25- likely at baseline for him- CTP 10/26 CTP likely needs placement 10/27: continue current tx plan. awaiting placement. 10/28: Similar to yesterday. No change in presentation. 10/29: Pt reports feeling good ;pt stated, just waiting for a place to live . denies any issues at this time. 10/30: calm, cooperative. active on unit, social with select peers, attending groups. Pt reports feeling worried about where I am going to live . denies any issues at this time. 10/21: no change in presentation. continue current tx plan. 11/01: continue current management and treatment plan. 11/02: Continue current management and treatment plan. 11/03: Continue current management and treatment plan. 11/04: Active on unit. calm, cooperative. social with select peers, attending groups. denies any issues at this time. He reports sleeping well. Pt reports he would be interested in applying for [facility] services; social work aware. 11/05: Active on unit. calm, cooperative. social with select peers, attending groups. denies any issues at this time. Pt reports feeling okay ; he reports anxiety regarding placement. Continue current tx plan. 11/07/23 [facility] referral has appropriate concerns re living stuation cont abilify lamictal 11/08/23 Pt cooperative with care d/c planning working with cont d/c planning cont lamictal abilify 11/12/23 Patient increasingly despairing aware of no clear discharge plan periods needs cuing for much functioning limited social engaged needs help regarding diabetes and medication compliance reportedly had been rejected by multiple rest homes patient not threatening intermittently hopeless helpless very limited family contact at this time 11/13/23 pt flat depressed hopeless helpless unable to fx without structure 11/15 continue tx. 11/16 continue tx. 11/18/2023 Continue plan of care referral to [facility] TSH low will decrease levothyroxine 11/19/23 Pt flat dysphor ic inc hopeless helpless lamictal 150 hs dec levothyroxine 150 d/c planning cont 11/20/23 lamictal inc d/c planning [facility] referral 12/02/2023 Continue Lamictal Abilify patient cooperative with care gets despairing at times regarding lack of family support problematic discharge planning in relationship to finding suitable structured place to live 12/02: Social with peers. Per nursing, pt did not sleep last night. Pt reports he did not sleeping because he wasn't tired but feel okay ; ordered Ativan 1mg PO bedtime for tonight, pt aware. 12/03: In bed sleeping, pt reports he is catching up on sleep from the night before. Calm, cooperative. T/W and formula room worker, Billie, with pt to discuss possibly going to the [facility]. Pt reports he would like to call his sister and speak to her before deciding. DC Ativan. 12/04: Active on unit, social with peers. attending groups. T/W and formula room worker, Billie, met with pt to discuss discharge plan. Pt reports he doesn't know if he would want to go to a homeless fdc; he states he would rather live on the street because I've done it before . Pt encouraged to consider benefits of going to a fdc with the winter months coming; he agreed to doing phone intake with social worker assistant on Saturday with [facility]. 12/05: Pt presents similar to yesterday. Continues to perseverate about [facility] being a fdc and not a program; He continues to agree to do phone intake on Saturday. Discussed VARGAS, pt reports he want time to consider d/t not liking needles . 12/08: Pt had phone interview with [facility], however, after multiple attempts at calling them, no one at [facility] picked up the phone to conduct interview. formula room worker to get into contact with them again. Pt denies any issues at this time. 12/09: Active on unit, social with peers. Pt denies any issues at this time. Patient agreed to receiving Abilify Maintena; risks/benefits reviewed. Waiting on placement. 12/10: Patient received Abilify Maintena yesterday. He denies any side effects. Pleasant. Waiting on placement. 12/11: continue current tx plan. 12/12: similar to days prior. waiting on placement. continue current tx plan. 12/13: appearing more depressed or demoralized. notes lots of people come and go. continue current mgmt. 12/14: same as for yesterday: find me a place to live? continue current mgmt. 12/15: out and about more. otherwise stable. continue current mgmt. 12/16: continue current tx plan. 12/17: continue current tx plan. 12/18: awaiting placement. denies any issues. 12/19: Pt reports feeling alright ; Social work continues to work on placement. Pt denies any issues at this time. Pt reports sleeping well. 12/20: Continue plan of care 12/21: Continue plan of care 12/22: continue current tx plan. 12/23: continue tx plan. 12/24: continue tx plan. 12/25: similar to days prior. waiting on placement. 12/26: Continue current tx plan. 12/27: Continue current management and treatment plan. 12/28: Continue current management and treatment plan. 12/29: In bed, tested positive for Covid. Vomited x1 per nursing. Pt reports feeling okay ; sleeping most of shift. Continue current tx plan. 12/30: Pt reports feeling okay ; continues on isolation d/t being Covid positive. Utilizing IPad. Pt reports sleeping well. denies SI/HI/VH/AH. Has not vomited today. 12/31: Pt reports feeling alright ; pt stated, I still have a stuffy nose, cough and headache but I'm starting to feel better . continues on isolation. denies other issues at this time. Continue current tx plan. 01/01: pt reports covid symptoms are improving. continues waiting on placement. 01/02: Continue tx plan. 01/05/24: no changes. 01/05: Active on unit. Pt reports feeling okay today; denies any issues at this time. pt had meeting with [facility] to be placed on list for temporary placement; pt declined. Dr. Gonzalez to speak to patient regarding this. 01/06: Discussed placement; pt reports he is thinking about saying yes to the motel . pt reports he does not believe his sister or social worker assistant that he has money saved in the bank. Pt believes if he left to go to the motel he would be stuck there with no money . Social work to discuss with pt. 01/07: Active on unit. social with peers. denies any issues. Pt reports feeling okay ; reports he is still thinking about where he will go after discharge. 01/08: waiting on placement. continue current tx plan. 01/09: Patient continues to wait on placement. 119: Continue current management and treatment plan. 03/13: Continue current management and treatment plan. 01/12: waiting on placement. 01/13: continue current tx plan. 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 noted on the unit to fixate on certain female peers. 01/24 continues with impaired insight/judgement- risk to others requiring inpatient and 1;1 01/25 given poor insight and stalking behavior continues to need inpt level of stay 02/01/24 Patient with odd affect feels safe in this setting requires structured setting given neurocognitive behavioral difficulties 02/02/24 Pt flat blunted not aggressive but can be intrusive needs help with medication and cueing 02/09/2024: Awaiting placement. Without appropriate placement, would lead to rapid decompensation and inability to care for self. Plan 1. Continue with same treatment. 2. Waiting for placement Reason for continued inpatient stay Substantial Risk for: rapid decompensation Time Spent With Patient Time: Total time managing care of this patient today ____ minutes.
[2024-02-09] MEDS: metFORMIN HCl ER 500 MG TAB.ER.24H 1000 MG PO (16:23)
[2024-02-09 20:00] VITALS: BP 121/66; PULSE 80; RESP 18; TEMP 36.8; O2SAT 96
[2024-02-09] MEDS: lamoTRIgine 100 MG TABLET 150 MG PO (21:13)
[2024-02-09] MEDS: Insulin Glargine,Hum.rec.anlog 100 UNIT/ML 10 ML VIAL 20 UNIT SUBCUT (21:15)
[2024-02-10] MEDS: Levothyroxine Sodium 150 MCG TABLET PO (06:43)
[2024-02-10 06:48] LABS: Glucose, Whole Blood 102 mg/dL (60-115)
[2024-02-10 08:00] VITALS: BP 139/71; PULSE 78; RESP 18; TEMP 36.2; O2SAT 98
[2024-02-10] MEDS: Sertraline HCL 50 MG TABLET PO (08:12)
[2024-02-10] MEDS: Memantine HCl 5 MG TABLET PO ×2 (08:12→20:38)
--- NOTE | 2024-02-10 10:52 | HO.PSYCHPN ---
Subjective Subjective Date of Service: 02/10/24 Reason For Visit: paranoia cognitive impairment Subjective Notes: Conditional Voluntary Interim History: The nursing staff reported no changes in his mental status compliant with treatment. He slept 8 hours. On interview the patient denies new symptoms, waiting for placement. Mental Status Exam Mental Status Exam Patient Appearance: Appropriate Patient Orientation: Person and Situation Level of Consciousness: Awake and Appropriate Patient Behavior: Guarded and Passive Mood Description: Withdrawn Affect Description: Constricted Patient Cognition Impaired: Yes Ability to Follow Directions: Good Speech Pattern: Clear 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: None Delusions: Ideas of Reference Thought Process: Distracted and Slowed Thinking Thought Content: positive for [place] and positive for Poverty of Content Judgement: Fair Diagnostics Vital Signs (24Hr): Vital Signs - 24 hr 02/09/24 20:00 Temperature 98.2 F Pulse Rate 80 Respiratory Rate 18 Blood Pressure 121/66 Pulse Oximetry 96 Oxygen Delivery Method Room Air BMI result Body Mass Index 32.5 Labs 09/10/23 20:00 02/06/24 08:43 Labs: Laboratory Results - last 48 hr 02/09/24 02/10/24 06:15 06:42 POC Glucose 123 H 102 Imaging Radiology Impressions: ITS Impressions Brain MRI 09/19/23 20:33 IMPRESSION: 1. No demonstrated acute intracranial abnormalities. 2. Chronic mild to moderate nonspecific white matter changes, most notably in the deep white matter of the right frontal lobe. Mild to moderate generalized cerebral volume loss. Medications Medications Current Medications Acetaminophen (Acetaminophen 325 Mg Tablet) 650 mg PO Q6H PRN PRN Reason: Headache/Pain Mild Scale (1-3) Last Admin: 01/01/24 08:45 Dose: 650 mg Al Hydroxide/Mg Hydroxide (Magnesium Hydrox/Alum Hydrox 30 Ml Oral.Susp) 30 ml PO Q6H PRN PRN Reason: Heartburn/Nausea Last Admin: 11/27/23 10:48 Dose: 30 ml Aripiprazole (Aripiprazole Er 300 Mg Suser.Syr) 300 mg IM Q28D@0900 MANAS Last Admin: 02/05/24 10:14 Dose: 300 mg Benzocaine (Throat Lozenge, Medicated Lozenge) 1 lozenge MUCOUS MEM Q2H PRN PRN Reason: Sore Throat Last Admin: 12/30/23 20:59 Dose: 1 lozenge Benztropine Mesylate (Benztropine Mesylate 0.5 Mg Tablet) 0.5 mg PO TID PRN PRN Reason: Extrapyramidal Effects Glucose (Glucose Gel 15 Gm Gel..Gram.) 15 gm PO Q15M PRN; Protocol PRN Reason: per Hypoglycemia Standing Ord. Guaifenesin/Dextromethorphan (Guaifenesin Dm 100/10/5 Ml 5 Ml Syrup) 5 ml PO Q4H PRN PRN Reason: Cough Last Admin: 01/06/24 22:48 Dose: 5 ml Hydroxyzine HCl (Hydroxyzine Hcl 25 Mg Tablet) 25 mg PO Q6H PRN PRN Reason: Anxiety Last Admin: 02/05/24 23:17 Dose: 25 mg Dextrose (D10) 250 mls @ 750 mls/hr IV Q15M PRN; Protocol PRN Reason: per Hypoglycemia Standing Ord. Insulin Glargine (Insulin Glargine,Hum.Rec.Anlog 100 Unit/Ml 10 Ml Vial) 20 unit SUBCUT BEDTIME [facility] Last Admin: 02/09/24 21:15 Dose: 20 unit Lamotrigine (Lamotrigine 100 Mg Tablet) 150 mg PO BEDTIME [facility] Last Admin: 02/09/24 21:13 Dose: 150 mg Levothyroxine Sodium (Levothyroxine Sodium 150 Mcg Tablet) 150 mcg PO DAILY@0630 [facility] Last Admin: 02/10/24 06:43 Dose: 150 mcg Magnesium Hydroxide (Milk Of Magnesia 30 Ml Oral.Susp) 30 ml PO DAILY PRN PRN Reason: Constipation Memantine (Memantine Hcl 5 Mg Tablet) 5 mg PO BID [facility] Last Admin: 02/10/24 08:12 Dose: 5 mg Metformin HCl (Metformin Hcl Er 500 Mg Tab.Er.24h) 1,000 mg PO DAILY@1700 [facility] Last Admin: 02/09/24 16:23 Dose: 1,000 mg Ondansetron HCl (Ondansetron Odt 8 Mg Tab.Rapdis) 8 mg TRANSLINGU Q8H PRN PRN Reason: Nausea and Vomiting Last Admin: 12/31/23 08:39 Dose: 8 mg Sertraline HCl (Sertraline Hcl 50 Mg Tablet) 50 mg PO DAILY [facility] Last Admin: 02/10/24 08:12 Dose: 50 mg Simethicone (Simethicone 80 Mg Tab.Chew) 80 mg PO QIDWMHS PRN PRN Reason: Gas Trazodone HCl (Trazodone Hcl 50 Mg Tablet) 50 mg PO BEDTIME MRX1 PRN PRN Reason: Insomnia Last Admin: 02/07/24 22:24 Dose: 50 mg Allergies Allergies Allergy/AdvReac Type Severity Reaction Status Date / Time amoxicillin [AMOXICILLIN] Allergy Mild VOMITING/ABD Verified 09/10/23 19:44 PAIN Assessment & Plan Assessment & Plan (1) Schizoaffective disorder: Status: Acute Code(s): F25.9 - Schizoaffective disorder, unspecified (2) Hypothyroidism: Status: Acute Code(s): E03.9 - Hypothyroidism, unspecified (3) Type 2 diabetes mellitus: Status: Acute Code(s): E11.9 - Type 2 diabetes mellitus without complications (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 Plan: CV 15 minute safety checks Continue home medications: Haldol 10mg PO daily Synthroid 200mcg PO daily Obtain labs; A1C/POCs Obtain collateral from sister Obtain records from last hospitalization. MOCA Referral for DMH services if patient is agreeable. encourage medication compliance;consider VARGAS discharge planning 09/11: Elevated fasting blood sugar elevated hemoglobin A1c 9.2 med consult placed put in point of care needed will start metformin Would benefit from clarity over recent hospitalization what this were done details regarding treatment continue Haldol unclear if patient has Healthcare proxy his [place] was low slowed cognition with poor details in depth at times during blankly regarding making judgments Unclear if any of this relates to past coma or 2 hypothyroidism. He does seem more impaired than when last seen unclear when last imaging was. Continue Haldol sitter neuro indira involvement regarding diagnostic picture. Patient does remain paranoid blunted suspicious apathetic. He might benefit from longer-term placement if available and appropriate at a later time involved DMH involvement would be quite helpful 09/12: cont haldol get records ? hcp ? start antidep unclear hx 09/13: Keeping to self. More talkative today. Pt concerned he will be transferred to [facility]. Pt stated, The paper I signed yesterday. Are you going to send me back to the last hospital? That place was horrible . Pt was educated he signed a release of information with Dr. Gonzalez to obtain records from [facility]. Pt was given a copy of the release he signed. Despite this, pt continues to be anxious about being transferred. Pt denies SI/HI/VH/AH. 09/14: Keeping to self. active on unit. showered. Pt reports feeling alright today; pt reports he is worried about where I'm going to go . Pt continues concerned he will be transferred to [facility]. Pt denies SI/HI/VH/AH. 09/15:Pt reports feeling alright today; pt continues to report he is worried about where I'm going to go . Responding with brief responses. Guarded. Observed standing in one place for a long period of time. Appears confused. Pt denies SI/HI/VH/AH. T/W spoke to patient's sister, Ros, with patients verbal consent. Ros reports concerns regarding patients ability to make decisions regarding his mental and physical health. She plans on contacting legal advice on obtaining guardianship of patient. 09/16:Patient's presents similar to yesterday's presentation. Responding with brief responses. Guarded. Observed standing in one place for a long period of time, when asked what he is doing, pt stated, I don't know . Pt reports he plans on contacting his sister today and try to convince her for me to stay there . Pt denies SI/HI/VH/AH. Continue current tx plan. 09/17: brief responses. Guarded. 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 Pt denies SI/HI/VH/AH. T/W and Dr. Gonzalez spoke to patient's sister, Ros. Ros stated being [facility] HCP and plans on finding document. She plans on coming to the hospital on Saturday to be present for [facility] intake. 09/21: No changes 09/22:Patient flat apathetic difficult insight and judgment his sister is healthcare proxy if needed patient is accepting medical treatment [facility] 09/23:Considers starting Haldol Decanoate patient is agreeable superficially difficulty with exec fx was [facility] 09/24:Pt seen in f/u mood flat dysphoric difficulty engaging in conversation preoccupied with thought he wont be living with family thing slowed apathetic no clear response with namenda ? some improvement inc lamictal start low dose sertraline inc lamictal ck tsh 09/25:Start Abilify as augmentation with Haldol see if can be more stimulating regarding depressed mood apathetic limited engagement sertraline 50 mg Lamictal 25 b.i.d. referral to [facility] which would have structure unclear if patient can engage with this he remains quite depressed has delusional beliefs regarding housing and that things have been done he has repeatedly tried to reach out to his sister denies active SI needs much help dressing talking with others encouragement to eat severe thought blocking Abilify might be more stimulating than Haldol which can be more dulling 09/26:Abilify started sertraline Lamictal encouraged step-down to [facility] encourage reality orientation denies active SI 09/27: Continue current regimen and plans 09/28: Continue current regimen and plans. 09/29: Referral to [facility] increase Abilify to 5 mg daily eventually try and taper Haldol sertraline 50 mg daily 09/30:Increase Abilify to 10 mg lower Haldol to 7 mg continue sertraline and Lamictal 10/01:Abilify increased to 10 mg continue to taper Haldol sertraline 100 mg Lamictal increased to 75 mg patient apathetic withdrawn difficulty with placement some paranoia continues difficulty with decision making at times. Not physically aggressive internally preoccupied seems somewhat improved with Abilify sertraline Continue discharge planning 10/02:Patient somewhat blunted flat slowed thinking during the day times staring. Change Abilify to 10 mg at bedtime. Scheduled Haldol will lowered to 2.5 mg Continue sertraline 100 mg Namenda 5 b.i.d. 10/03:Haldol discontinued modafinil low-dose monitor for psychosis or agitation continue discharge planning 10/06: May need to firm healthcare proxy calls have been placed to sister to try to help in discharge planning. Referrals made. Patient cooperative with care 10/07:Pharmacy ordering Abilify maintain a increase modafinil 100 mg patient remains flat passive depressed some improvement noted no current paranoia noted continue discharge planning no current safe discharge plan 10/08: Increase Lamictal 100 mg Abilify Maintena 400 mg hold modafinil unclear if was overly stimulating patient continues to present internally preoccupied. 10/09:Healthcare proxy invoked discharge planning continue Lamictal Abilify pending maintain a 10/10:Healthcare proxy invoked new CV signed discharge planning. 10/11 keep same treatment 10/12 keep same treatment 10/13: Continue plan of care Lamictal Abilify discharge planning sertraline 10/14: stable. continue current mgmt. 10/15: stable. continue current mgmt. 10/16: stable presentation. continue current mgmt. 10/17: as for yesterday. 10/18: no changes. 10/19: stabel, safe. no change. 10/20: no change in presentation. calm, cooperative. active on unit, social with select peers, attending groups. Pt reports feeling alright . denies SI/HI/VH/AH. Social work waiting to hear from possible placement location. Continue current tx plan. 10/21: continue current tx plan. awaiting placement. 10/22: calm, cooperative. active on unit, social with select peers, attending groups. Pt reports feeling good ; pt stated, I'm waiting to see where I'm going . denies SI/HI/VH/AH. Showered with encouragement. 10/23: continue current tx plan. 10/24: calm, cooperative. active on unit, social with select peers, attending groups. Pt reports feeling good ; pt stated, I just want a place to live . 10/25- likely at baseline for him- CTP 10/26 CTP likely needs placement 10/27: continue current tx plan. awaiting placement. 10/28: Similar to yesterday. No change in presentation. 10/29: Pt reports feeling good ;pt stated, just waiting for a place to live . denies any issues at this time. 10/30: calm, cooperative. active on unit, social with select peers, attending groups. Pt reports feeling worried about where I am going to live . denies any issues at this time. 10/21: no change in presentation. continue current tx plan. 11/01: continue current management and treatment plan. 11/02: Continue current management and treatment plan. 11/03: Continue current management and treatment plan. 11/04: Active on unit. calm, cooperative. social with select peers, attending groups. denies any issues at this time. He reports sleeping well. Pt reports he would be interested in applying for [facility] services; social work aware. 11/05: Active on unit. calm, cooperative. social with select peers, attending groups. denies any issues at this time. Pt reports feeling okay ; he reports anxiety regarding placement. Continue current tx plan. 11/07/23 DM referral has appropriate concerns re living stuation cont abilify lamictal 11/08/23 Pt cooperative with care d/c planning working with sw cont d/c planning cont lamictal abilify 11/12/23 Patient increasingly despairing aware of no clear discharge plan periods needs cuing for much functioning limited social engaged needs help regarding diabetes and medication compliance reportedly had been rejected by multiple rest homes patient not threatening intermittently hopeless helpless very limited family contact at this time 11/13/23 pt flat depressed hopeless helpless unable to fx without structure 11/15 continue tx. 11/16 continue tx. 11/18/2023 Continue plan of care referral to [facility] TSH low will decrease levothyroxine 11/19/23 Pt flat dysphor ic inc hopeless helpless lamictal 150 hs dec levothyroxine 150 d/c planning cont 11/20/23 lamictal inc d/c planning dmh referral 12/02/2023 Continue Lamictal Abilify patient cooperative with care gets despairing at times regarding lack of family support problematic discharge planning in relationship to finding suitable structured place to live 12/02: Social with peers. Per nursing, pt did not sleep last night. Pt reports he did not sleeping because he wasn't tired but feel okay ; ordered Ativan 1mg PO bedtime for tonight, pt aware. 12/03: In bed sleeping, pt reports he is catching up on sleep from the night before. Calm, cooperative. T/W and bilingual patient support caseworker, Billie, with pt to discuss possibly going to the [facility]. Pt reports he would like to call his sister and speak to her before deciding. DC Ativan. 12/04: Active on unit, social with peers. attending groups. T/W and bilingual patient support caseworker, Billie, met with pt to discuss discharge plan. Pt reports he doesn't know if he would want to go to a homeless skilled nursing; he states he would rather live on the street because I've done it before . Pt encouraged to consider benefits of going to a skilled nursing with the winter months coming; he agreed to doing phone intake with social research assistant on Saturday with [facility]. 12/05: Pt presents similar to yesterday. Continues to perseverate about [facility] being a skilled nursing and not a program; He continues to agree to do phone intake on Saturday. Discussed VARGAS, pt reports he want time to consider d/t not liking needles . 12/08: Pt had phone interview with [facility], however, after multiple attempts at calling them, no one at [facility] picked up the phone to conduct interview. bilingual patient support caseworker to get into contact with them again. Pt denies any issues at this time. 12/09: Active on unit, social with peers. Pt denies any issues at this time. Patient agreed to receiving Abilify Maintena; risks/benefits reviewed. Waiting on placement. 12/10: Patient received Abilify Maintena yesterday. He denies any side effects. Pleasant. Waiting on placement. 12/11: continue current tx plan. 12/12: similar to days prior. waiting on placement. continue current tx plan. 12/13: appearing more depressed or demoralized. notes lots of people come and go. continue current mgmt. 12/14: same as for yesterday: find me a place to live? continue current mgmt. 12/15: out and about more. otherwise stable. continue current mgmt. 12/16: continue current tx plan. 12/17: continue current tx plan. 12/18: awaiting placement. denies any issues. 12/19: Pt reports feeling alright ; Social work continues to work on placement. Pt denies any issues at this time. Pt reports sleeping well. 12/20: Continue plan of care 12/21: Continue plan of care 12/22: continue current tx plan. 12/23: continue tx plan. 12/24: continue tx plan. 12/25: similar to days prior. waiting on placement. 12/26: Continue current tx plan. 12/27: Continue current management and treatment plan. 12/28: Continue current management and treatment plan. 12/29: In bed, tested positive for Covid. Vomited x1 per nursing. Pt reports feeling okay ; sleeping most of shift. Continue current tx plan. 12/30: Pt reports feeling okay ; continues on isolation d/t being Covid positive. Utilizing IPad. Pt reports sleeping well. denies SI/HI/VH/AH. Has not vomited today. 12/31: Pt reports feeling alright ; pt stated, I still have a stuffy nose, cough and headache but I'm starting to feel better . continues on isolation. denies other issues at this time. Continue current tx plan. 01/01: pt reports covid symptoms are improving. continues waiting on placement. 01/02: Continue tx plan. 01/05/24: no changes. 01/05: Active on unit. Pt reports feeling okay today; denies any issues at this time. pt had meeting with [facility] to be placed on list for temporary placement; pt declined. Dr. Gonzalez to speak to patient regarding this. 01/06: Discussed placement; pt reports he is thinking about saying yes to the motel . pt reports he does not believe his sister or social research assistant that he has money saved in the bank. Pt believes if he left to go to the motel he would be stuck there with no money . Social work to discuss with pt. 01/07: Active on unit. social with peers. denies any issues. Pt reports feeling okay ; reports he is still thinking about where he will go after discharge. 01/08: waiting on placement. continue current tx plan. 01/09: Patient continues to wait on placement. 119: Continue current management and treatment plan. 03/13: Continue current management and treatment plan. 01/12: waiting on placement. 01/13: continue current tx plan. 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 noted on the unit to fixate on certain female peers. 01/24 continues with impaired insight/judgement- risk to others requiring inpatient and 01/25 given poor insight and stalking behavior continues to need inpt level of stay 02/01/24 Patient with odd affect feels safe in this setting requires structured setting given neurocognitive behavioral difficulties 02/02/24 Pt flat blunted not aggressive but can be intrusive needs help with medication and cueing 02/09/2024: Awaiting placement. Without appropriate placement, would lead to rapid decompensation and inability to care for self. Plan 1. Continue with same treatment. 2. Waiting for placement Reason for continued inpatient stay Substantial Risk for: inability to function, rapid decompensation and med/psych decompensation Time Spent With Patient Time: Total time managing care of this patient today __20__ minutes.
[2024-02-10] MEDS: metFORMIN HCl ER 500 MG TAB.ER.24H 1000 MG PO (16:14)
[2024-02-10 20:00] VITALS: BP 121/66; PULSE 74; RESP 18; TEMP 36.4; O2SAT 96
[2024-02-10 20:28] LABS: Glucose, Whole Blood 96 mg/dL (60-115)
[2024-02-10] MEDS: Insulin Glargine,Hum.rec.anlog 100 UNIT/ML 10 ML VIAL 20 UNIT SUBCUT (20:38)
[2024-02-10] MEDS: lamoTRIgine 100 MG TABLET 150 MG PO (20:39)
[2024-02-10] MEDS: traZODone HCL 50 MG TABLET PO (20:44)
[2024-02-11] MEDS: Levothyroxine Sodium 150 MCG TABLET PO (06:56)
[2024-02-11 07:06] LABS: Glucose, Whole Blood 104 mg/dL (60-115)
[2024-02-11] MEDS: Sertraline HCL 50 MG TABLET PO (07:46)
[2024-02-11] MEDS: Memantine HCl 5 MG TABLET PO ×2 (07:47→19:54)
[2024-02-11 08:00] VITALS: BP 131/79; PULSE 90; RESP 18; TEMP 36.3; O2SAT 95
--- NOTE | 2024-02-11 15:56 | HO.PSYCHPN ---
Subjective Subjective Date of Service: 02/11/24 Reason For Visit: paranoia cognitive impairment Subjective Notes: Conditional Voluntary Interim History: The nursing staff reported the patient remains pleasant cooperative intrusive at times but redirectable. No changes in his mental status. On interview the patient denies new symptoms, waiting for placement. Mental Status Exam Mental Status Exam Patient Appearance: Appropriate Patient Orientation: Person and Situation Level of Consciousness: Awake and Appropriate Patient Behavior: Guarded and Passive Mood Description: Calm Affect Description: Constricted Patient Cognition Impaired: Yes Ability to Follow Directions: Good Speech Pattern: Clear 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: None Delusions: Ideas of Reference Thought Process: Distracted and Slowed Thinking Thought Content: positive for [place] and positive for Poverty of Content Judgement: Fair Diagnostics Vital Signs (24Hr): Vital Signs - 24 hr 02/10/24 20:00 02/11/24 08:00 Temperature 97.5 F 97.4 F Pulse Rate 74 90 Respiratory Rate 18 18 Blood Pressure 121/66 131/79 Pulse Oximetry 96 95 Oxygen Delivery Method Room Air Room Air BMI result Body Mass Index 32.5 Labs 09/10/23 20:00 02/06/24 08:43 Labs: Laboratory Results - last 48 hr 02/10/24 02/10/24 02/11/24 06:42 20:23 06:59 POC Glucose 102 96 104 Imaging Radiology Impressions: ITS Impressions Brain MRI 09/19/23 20:33 IMPRESSION: 1. No demonstrated acute intracranial abnormalities. 2. Chronic mild to moderate nonspecific white matter changes, most notably in the deep white matter of the right frontal lobe. Mild to moderate generalized cerebral volume loss. Medications Medications Current Medications Acetaminophen (Acetaminophen 325 Mg Tablet) 650 mg PO Q6H PRN PRN Reason: Headache/Pain Mild Scale (1-3) Last Admin: 01/01/24 08:45 Dose: 650 mg Al Hydroxide/Mg Hydroxide (Magnesium Hydrox/Alum Hydrox 30 Ml Oral.Susp) 30 ml PO Q6H PRN PRN Reason: Heartburn/Nausea Last Admin: 11/27/23 10:48 Dose: 30 ml Aripiprazole (Aripiprazole Er 300 Mg Suser.Syr) 300 mg IM Q28D@0900 MANAS Last Admin: 02/05/24 10:14 Dose: 300 mg Benzocaine (Throat Lozenge, Medicated Lozenge) 1 lozenge MUCOUS MEM Q2H PRN PRN Reason: Sore Throat Last Admin: 12/30/23 20:59 Dose: 1 lozenge Benztropine Mesylate (Benztropine Mesylate 0.5 Mg Tablet) 0.5 mg PO TID PRN PRN Reason: Extrapyramidal Effects Glucose (Glucose Gel 15 Gm Gel..Gram.) 15 gm PO Q15M PRN; Protocol PRN Reason: per Hypoglycemia Standing Ord. Guaifenesin/Dextromethorphan (Guaifenesin Dm 100/10/5 Ml 5 Ml Syrup) 5 ml PO Q4H PRN PRN Reason: Cough Last Admin: 01/06/24 22:48 Dose: 5 ml Hydroxyzine HCl (Hydroxyzine Hcl 25 Mg Tablet) 25 mg PO Q6H PRN PRN Reason: Anxiety Last Admin: 02/05/24 23:17 Dose: 25 mg Dextrose (D10) 250 mls @ 750 mls/hr IV Q15M PRN; Protocol PRN Reason: per Hypoglycemia Standing Ord. Insulin Glargine (Insulin Glargine,Hum.Rec.Anlog 100 Unit/Ml 10 Ml Vial) 20 unit SUBCUT BEDTIME [facility] Last Admin: 02/10/24 20:38 Dose: 20 unit Lamotrigine (Lamotrigine 100 Mg Tablet) 150 mg PO BEDTIME [facility] Last Admin: 02/10/24 20:39 Dose: 150 mg Levothyroxine Sodium (Levothyroxine Sodium 150 Mcg Tablet) 150 mcg PO DAILY@0630 [facility] Last Admin: 02/11/24 06:56 Dose: 150 mcg Magnesium Hydroxide (Milk Of Magnesia 30 Ml Oral.Susp) 30 ml PO DAILY PRN PRN Reason: Constipation Memantine (Memantine Hcl 5 Mg Tablet) 5 mg PO BID [facility] Last Admin: 02/11/24 07:47 Dose: 5 mg Metformin HCl (Metformin Hcl Er 500 Mg Tab.Er.24h) 1,000 mg PO DAILY@1700 [facility] Last Admin: 02/10/24 16:14 Dose: 1,000 mg Ondansetron HCl (Ondansetron Odt 8 Mg Tab.Rapdis) 8 mg TRANSLINGU Q8H PRN PRN Reason: Nausea and Vomiting Last Admin: 12/31/23 08:39 Dose: 8 mg Sertraline HCl (Sertraline Hcl 50 Mg Tablet) 50 mg PO DAILY [facility] Last Admin: 02/11/24 07:46 Dose: 50 mg Simethicone (Simethicone 80 Mg Tab.Chew) 80 mg PO QIDWMHS PRN PRN Reason: Gas Trazodone HCl (Trazodone Hcl 50 Mg Tablet) 50 mg PO BEDTIME MRX1 PRN PRN Reason: Insomnia Last Admin: 02/10/24 20:44 Dose: 50 mg Allergies Allergies Allergy/AdvReac Type Severity Reaction Status Date / Time amoxicillin [AMOXICILLIN] Allergy Mild VOMITING/ABD Verified 09/10/23 19:44 PAIN Assessment & Plan Assessment & Plan (1) Schizoaffective disorder: Status: Acute Code(s): F25.9 - Schizoaffective disorder, unspecified (2) Hypothyroidism: Status: Acute Code(s): E03.9 - Hypothyroidism, unspecified (3) Type 2 diabetes mellitus: Status: Acute Code(s): E11.9 - Type 2 diabetes mellitus without complications (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 Plan: CV 15 minute safety checks Continue home medications: Haldol 10mg PO daily Synthroid 200mcg PO daily Obtain labs; A1C/POCs Obtain collateral from sister Obtain records from last hospitalization. MOCA Referral for [facility] services if patient is agreeable. encourage medication compliance;consider [facility]AS discharge planning 09/11: Elevated fasting blood sugar elevated hemoglobin A1c 9.2 med consult placed put in point of care needed will start metformin Would benefit from clarity over recent hospitalization what this were done details regarding treatment continue Haldol unclear if patient has Healthcare proxy his [place] was low slowed cognition with poor details in depth at times during blankly regarding making judgments Unclear if any of this relates to past coma or 2 hypothyroidism. He does seem more impaired than when last seen unclear when last imaging was. [facility] regarding diagnostic picture. Patient does remain paranoid blunted suspicious apathetic. He might benefit from longer-term placement if available and appropriate at a later time involved H involvement would be quite helpful 09/12: cont haldol get records ? hcp ? start antidep unclear hx 09/13: Keeping to self. More talkative today. Pt concerned he will be transferred to [facility]. Pt stated, The paper I signed yesterday. Are you going to send me back to the last hospital? That place was horrible . Pt was educated he signed a release of information with Dr. Gonzalez to obtain records from [facility]. Pt was given a copy of the release he signed. Despite this, pt continues to be anxious about being transferred. Pt denies SI/HI/VH/AH. 09/14: Keeping to self. active on unit. showered. Pt reports feeling alright today; pt reports he is worried about where I'm going to go . Pt continues concerned he will be transferred to [facility]. Pt denies SI/HI/VH/AH. 09/15:Pt reports feeling alright today; pt continues to report he is worried about where I'm going to go . Responding with brief responses. Guarded. Observed standing in one place for a long period of time. Appears confused. Pt denies SI/HI/VH/AH. T/W spoke to patient's sister, Ros, with patients verbal consent. Ros reports concerns regarding patients ability to make decisions regarding his mental and physical health. She plans on contacting legal advice on obtaining guardianship of patient. 09/16:Patient's presents similar to yesterday's presentation. Responding with brief responses. Guarded. Observed standing in one place for a long period of time, when asked what he is doing, pt stated, I don't know . Pt reports he plans on contacting his sister today and try to convince her for me to stay there . Pt denies SI/HI/VH/AH. Continue current tx plan. 09/17: brief responses. Guarded. 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 Pt denies SI/HI/VH/AH. T/W and Dr. Gonzalez spoke to patient's sister, Ros. Ros stated being [facility] HCP and plans on finding document. She plans on coming to the hospital on Saturday to be present for [facility] intake. 09/21: No changes 09/22:Patient flat apathetic difficult insight and judgment his sister is healthcare proxy if needed patient is accepting medical treatment Referral to [facility] 09/23:Considers starting Haldol Decanoate patient is agreeable superficially difficulty with exec fx was seen [facility] 09/24:Pt seen in f/u mood flat dysphoric difficulty engaging in conversation preoccupied with thought he wont be living with family thing slowed apathetic no clear response with namenda ? some improvement inc lamictal start low dose sertraline inc lamictal ck tsh 09/25:Start Abilify as augmentation with Haldol see if can be more stimulating regarding depressed mood apathetic limited engagement sertraline 50 mg Lamictal 25 b.i.d. referral to [facility] which would have structure unclear if patient can engage with this he remains quite depressed has delusional beliefs regarding housing and that things have been done he has repeatedly tried to reach out to his sister denies active SI needs much help dressing talking with others encouragement to eat severe thought blocking Abilify might be more stimulating than Haldol which can be more dulling 09/26:Abilify started sertraline Lamictal encouraged step-down to [facility] encourage reality orientation denies active SI 09/27: Continue current regimen and plans 09/28: Continue current regimen and plans. 09/29: Referral to [facility] increase Abilify to 5 mg daily eventually try and taper Haldol sertraline 50 mg daily 09/30:Increase Abilify to 10 mg lower Haldol to 7 mg continue sertraline and Lamictal 10/01:Abilify increased to 10 mg continue to taper Haldol sertraline 100 mg Lamictal increased to 75 mg patient apathetic withdrawn difficulty with placement some paranoia continues difficulty with decision making at times. Not physically aggressive internally preoccupied seems somewhat improved with Abilify sertraline Continue discharge planning 10/02:Patient somewhat blunted flat slowed thinking during the day times staring. Change Abilify to 10 mg at bedtime. Scheduled Haldol will lowered to 2.5 mg Continue sertraline 100 mg Namenda 5 b.i.d. 10/03:Haldol discontinued modafinil low-dose monitor for psychosis or agitation continue discharge planning 10/06: May need to firm healthcare proxy calls have been placed to sister to try to help in discharge planning. Referrals made. Patient cooperative with care 10/07:Pharmacy ordering Abilify maintain a increase modafinil 100 mg patient remains flat passive depressed some improvement noted no current paranoia noted continue discharge planning no current safe discharge plan 10/08: Increase Lamictal 100 mg Abilify Maintena 400 mg hold modafinil unclear if was overly stimulating patient continues to present internally preoccupied. 10/09:Healthcare proxy invoked discharge planning continue Lamictal Abilify pending maintain a 10/10:Healthcare proxy invoked new CV signed discharge planning. 10/11 keep same treatment 10/12 keep same treatment 10/13: Continue plan of care Lamictal Abilify discharge planning sertraline 10/14: stable. continue current mgmt. 10/15: stable. continue current mgmt. 10/16: stable presentation. continue current mgmt. 10/17: as for yesterday. 10/18: no changes. 10/19: stabel, safe. no change. 10/20: no change in presentation. calm, cooperative. active on unit, social with select peers, attending groups. Pt reports feeling alright . denies SI/HI/VH/AH. Social work waiting to hear from possible placement location. Continue current tx plan. 10/21: continue current tx plan. awaiting placement. 10/22: calm, cooperative. active on unit, social with select peers, attending groups. Pt reports feeling good ; pt stated, I'm waiting to see where I'm going . denies SI/HI/VH/AH. Showered with encouragement. 10/23: continue current tx plan. 10/24: calm, cooperative. active on unit, social with select peers, attending groups. Pt reports feeling good ; pt stated, I just want a place to live . 10/25- likely at baseline for him- CTP 10/26 CTP likely needs placement 10/27: continue current tx plan. awaiting placement. 10/28: Similar to yesterday. No change in presentation. 10/29: Pt reports feeling good ;pt stated, just waiting for a place to live . denies any issues at this time. 10/30: calm, cooperative. active on unit, social with select peers, attending groups. Pt reports feeling worried about where I am going to live . denies any issues at this time. 10/21: no change in presentation. continue current tx plan. 11/01: continue current management and treatment plan. 11/02: Continue current management and treatment plan. 11/03: Continue current management and treatment plan. 11/04: Active on unit. calm, cooperative. social with select peers, attending groups. denies any issues at this time. He reports sleeping well. Pt reports he would be interested in applying for [facility] services; social work aware. 11/05: Active on unit. calm, cooperative. social with select peers, attending groups. denies any issues at this time. Pt reports feeling okay ; he reports anxiety regarding placement. Continue current tx plan. 11/07/23 [facility] referral has appropriate concerns re living stuation cont abilify lamictal 11/08/23 Pt cooperative with care d/c planning working with cont d/c planning cont lamictal abilify 11/12/23 Patient increasingly despairing aware of no clear discharge plan periods needs cuing for much functioning limited social engaged needs help regarding diabetes and medication compliance reportedly had been rejected by multiple rest homes patient not threatening intermittently hopeless helpless very limited family contact at this time 11/13/23 pt flat depressed hopeless helpless unable to fx without structure 11/15 continue tx. 11/16 continue tx. 11/18/2023 Continue plan of care referral to [facility] TSH low will decrease levothyroxine 11/19/23 Pt flat dysphor ic inc hopeless helpless lamictal 150 hs dec levothyroxine 150 d/c planning cont 11/20/23 lamictal inc d/c planning [facility] referral 12/02/2023 Continue Lamictal Abilify patient cooperative with care gets despairing at times regarding lack of family support problematic discharge planning in relationship to finding suitable structured place to live 12/02: Social with peers. Per nursing, pt did not sleep last night. Pt reports he did not sleeping because he wasn't tired but feel okay ; ordered Ativan 1mg PO bedtime for tonight, pt aware. 12/03: In bed sleeping, pt reports he is catching up on sleep from the night before. Calm, cooperative. T/W and connection worker, Billie, with pt to discuss possibly going to the [facility]. Pt reports he would like to call his sister and speak to her before deciding. DC Ativan. 12/04: Active on unit, social with peers. attending groups. T/W and connection worker, Billie, met with pt to discuss discharge plan. Pt reports he doesn't know if he would want to go to a homeless ch[facility]; he states he would rather live on the street because I've done it before . Pt encouraged to consider benefits of going to a chcf with the winter months coming; he agreed to doing phone intake with social worker palliative care on Saturday with [facility]. 12/05: Pt presents similar to yesterday. Continues to perseverate about [facility] being a chcf and not a program; He continues to agree to do phone intake on Saturday. Discussed [facility]AS, pt reports he want time to consider d/t not liking needles . 12/08: Pt had phone interview with [facility], however, after multiple attempts at calling them, no one at [facility] picked up the phone to conduct interview. connection worker to get into contact with them again. Pt denies any issues at this time. 12/09: Active on unit, social with peers. Pt denies any issues at this time. Patient agreed to receiving Abilify Maintena; risks/benefits reviewed. Waiting on placement. 12/10: Patient received Abilify Maintena yesterday. He denies any side effects. Pleasant. Waiting on placement. 12/11: continue current tx plan. 12/12: similar to days prior. waiting on placement. continue current tx plan. 12/13: appearing more depressed or demoralized. notes lots of people come and go. continue current mgmt. 12/14: same as for yesterday: find me a place to live? continue current mgmt. 12/15: out and about more. otherwise stable. continue current mgmt. 12/16: continue current tx plan. 12/17: continue current tx plan. 12/18: awaiting placement. denies any issues. 12/19: Pt reports feeling alright ; Social work continues to work on placement. Pt denies any issues at this time. Pt reports sleeping well. 12/20: Continue plan of care 12/21: Continue plan of care 12/22: continue current tx plan. 12/23: continue tx plan. 12/24: continue tx plan. 12/25: similar to days prior. waiting on placement. 12/26: Continue current tx plan. 12/27: Continue current management and treatment plan. 12/28: Continue current management and treatment plan. 12/29: In bed, tested positive for Covid. Vomited x1 per nursing. Pt reports feeling okay ; sleeping most of shift. Continue current tx plan. 12/30: Pt reports feeling okay ; continues on isolation d/t being Covid positive. Utilizing IPad. Pt reports sleeping well. denies SI/HI/VH/AH. Has not vomited today. 12/31: Pt reports feeling alright ; pt stated, I still have a stuffy nose, cough and headache but I'm starting to feel better . continues on isolation. denies other issues at this time. Continue current tx plan. 01/01: pt reports covid symptoms are improving. continues waiting on placement. 01/02: Continue tx plan. 01/05/24: no changes. 01/05: Active on unit. Pt reports feeling okay today; denies any issues at this time. pt had meeting with [facility] to be placed on list for temporary placement; pt declined. Dr. Gonzalez to speak to patient regarding this. 01/06: Discussed placement; pt reports he is thinking about saying yes to the motel . pt reports he does not believe his sister or social worker palliative care that he has money saved in the bank. Pt believes if he left to go to the motel he would be stuck there with no money . Social work to discuss with pt. 01/07: Active on unit. social with peers. denies any issues. Pt reports feeling okay ; reports he is still thinking about where he will go after discharge. 01/08: waiting on placement. continue current tx plan. 01/09: Patient continues to wait on placement. 119: Continue current management and treatment plan. 03/13: Continue current management and treatment plan. 01/12: waiting on placement. 01/13: continue current tx plan. 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 noted on the unit to fixate on certain female peers. 01/24 continues with impaired insight/judgement- risk to others requiring inpatient and 1;01/25 given poor insight and stalking behavior continues to need inpt level of stay 02/01/24 Patient with odd affect feels safe in this setting requires structured setting given neurocognitive behavioral difficulties 02/02/24 Pt flat blunted not aggressive but can be intrusive needs help with medication and cueing 02/09/2024: Awaiting placement. Without appropriate placement, would lead to rapid decompensation and inability to care for self. Plan 1. Continue with same treatment. 2. Waiting for placement Reason for continued inpatient stay Substantial Risk for: inability to function, rapid decompensation and med/psych decompensation Time Spent With Patient Time: Total time managing care of this patient today __20__ minutes.
[2024-02-11] MEDS: metFORMIN HCl ER 500 MG TAB.ER.24H 1000 MG PO (16:24)
[2024-02-11] MEDS: lamoTRIgine 100 MG TABLET 150 MG PO (19:54)
[2024-02-11] MEDS: Insulin Glargine,Hum.rec.anlog 100 UNIT/ML 10 ML VIAL 20 UNIT SUBCUT (19:55)
[2024-02-11 20:00] VITALS: BP 129/73; PULSE 80; RESP 16; TEMP 36.9; O2SAT 96
[2024-02-11] MEDS: traZODone HCL 50 MG TABLET PO (20:20)
[2024-02-12] MEDS: Levothyroxine Sodium 150 MCG TABLET PO (05:48)
[2024-02-12 06:13] LABS: Glucose, Whole Blood 112 mg/dL (60-115)
[2024-02-12 08:00] VITALS: BP 125/75; PULSE 69; RESP 15; TEMP 36; O2SAT 97
[2024-02-12] MEDS: Memantine HCl 5 MG TABLET PO ×2 (08:11→20:00)
[2024-02-12] MEDS: Sertraline HCL 50 MG TABLET PO (08:11)
--- NOTE | 2024-02-12 15:20 | HO.PSYCHPN ---
Subjective Subjective Date of Service: 02/12/24 Reason For Visit: paranoia cognitive impairment Subjective Notes: Conditional Voluntary Interim History: The nursing staff reported the patient has been vomiting after breakfast. On interview the patient denies new symptoms compliant with treatment, waiting for placement. Mental Status Exam Mental Status Exam Patient Appearance: Appropriate Patient Orientation: Person and Situation Level of Consciousness: Awake and Appropriate Patient Behavior: Guarded and Passive Mood Description: Withdrawn Affect Description: Constricted Patient Cognition Impaired: Yes Ability to Follow Directions: Good Speech Pattern: Clear 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: None Delusions: Not Present Thought Process: Distracted and Slowed Thinking Thought Content: positive for [place] and positive for Poverty of Content Judgement: Fair Diagnostics Vital Signs (24Hr): Vital Signs - 24 hr 02/11/24 20:00 02/12/24 08:00 Temperature 98.5 F 96.8 F Pulse Rate 80 69 Respiratory Rate 16 15 Blood Pressure 129/73 125/75 Pulse Oximetry 96 97 Oxygen Delivery Method Room Air Room Air BMI result Body Mass Index 32.5 Labs 09/10/23 20:00 02/06/24 08:43 Labs: Laboratory Results - last 48 hr 02/10/24 02/11/24 02/12/24 20:23 06:59 05:58 POC Glucose 96 104 112 Imaging Radiology Impressions: ITS Impressions Brain MRI 09/19/23 20:33 IMPRESSION: 1. No demonstrated acute intracranial abnormalities. 2. Chronic mild to moderate nonspecific white matter changes, most notably in the deep white matter of the right frontal lobe. Mild to moderate generalized cerebral volume loss. Medications Medications Current Medications Acetaminophen (Acetaminophen 325 Mg Tablet) 650 mg PO Q6H PRN PRN Reason: Headache/Pain Mild Scale (1-3) Last Admin: 01/01/24 08:45 Dose: 650 mg Al Hydroxide/Mg Hydroxide (Magnesium Hydrox/Alum Hydrox 30 Ml Oral.Susp) 30 ml PO Q6H PRN PRN Reason: Heartburn/Nausea Last Admin: 11/27/23 10:48 Dose: 30 ml Aripiprazole (Aripiprazole Er 300 Mg Suser.Syr) 300 mg IM Q28D@0900 MANAS Last Admin: 02/05/24 10:14 Dose: 300 mg Benzocaine (Throat Lozenge, Medicated Lozenge) 1 lozenge MUCOUS MEM Q2H PRN PRN Reason: Sore Throat Last Admin: 12/30/23 20:59 Dose: 1 lozenge Benztropine Mesylate (Benztropine Mesylate 0.5 Mg Tablet) 0.5 mg PO TID PRN PRN Reason: Extrapyramidal Effects Glucose (Glucose Gel 15 Gm Gel..Gram.) 15 gm PO Q15M PRN; Protocol PRN Reason: per Hypoglycemia Standing Ord. Guaifenesin/Dextromethorphan (Guaifenesin Dm 100/10/5 Ml 5 Ml Syrup) 5 ml PO Q4H PRN PRN Reason: Cough Last Admin: 01/06/24 22:48 Dose: 5 ml Hydroxyzine HCl (Hydroxyzine Hcl 25 Mg Tablet) 25 mg PO Q6H PRN PRN Reason: Anxiety Last Admin: 02/05/24 23:17 Dose: 25 mg Dextrose (D10) 250 mls @ 750 mls/hr IV Q15M PRN; Protocol PRN Reason: per Hypoglycemia Standing Ord. Insulin Glargine (Insulin Glargine,Hum.Rec.Anlog 100 Unit/Ml 10 Ml Vial) 20 unit SUBCUT BEDTIME [facility] Last Admin: 02/11/24 19:55 Dose: 20 unit Lamotrigine (Lamotrigine 100 Mg Tablet) 150 mg PO BEDTIME [facility] Last Admin: 02/11/24 19:54 Dose: 150 mg Levothyroxine Sodium (Levothyroxine Sodium 150 Mcg Tablet) 150 mcg PO DAILY@0630 [facility] Last Admin: 02/12/24 05:48 Dose: 150 mcg Magnesium Hydroxide (Milk Of Magnesia 30 Ml Oral.Susp) 30 ml PO DAILY PRN PRN Reason: Constipation Memantine (Memantine Hcl 5 Mg Tablet) 5 mg PO BID [facility] Last Admin: 02/12/24 08:11 Dose: 5 mg Metformin HCl (Metformin Hcl Er 500 Mg Tab.Er.24h) 1,000 mg PO DAILY@1700 [facility] Last Admin: 02/11/24 16:24 Dose: 1,000 mg Ondansetron HCl (Ondansetron Odt 8 Mg Tab.Rapdis) 8 mg TRANSLINGU Q8H PRN PRN Reason: Nausea and Vomiting Last Admin: 12/31/23 08:39 Dose: 8 mg Sertraline HCl (Sertraline Hcl 50 Mg Tablet) 50 mg PO DAILY [facility] Last Admin: 02/12/24 08:11 Dose: 50 mg Simethicone (Simethicone 80 Mg Tab.Chew) 80 mg PO QIDWMHS PRN PRN Reason: Gas Trazodone HCl (Trazodone Hcl 50 Mg Tablet) 50 mg PO BEDTIME MRX1 PRN PRN Reason: Insomnia Last Admin: 02/11/24 20:20 Dose: 50 mg Allergies Allergies Allergy/AdvReac Type Severity Reaction Status Date / Time amoxicillin [AMOXICILLIN] Allergy Mild VOMITING/ABD Verified 09/10/23 19:44 PAIN Assessment & Plan Assessment & Plan (1) Schizoaffective disorder: Status: Acute Code(s): F25.9 - Schizoaffective disorder, unspecified (2) Hypothyroidism: Status: Acute Code(s): E03.9 - Hypothyroidism, unspecified (3) Type 2 diabetes mellitus: Status: Acute Code(s): E11.9 - Type 2 diabetes mellitus without complications (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 Plan: CV 15 minute safety checks Continue home medications: Haldol 10mg PO daily Synthroid 200mcg PO daily Obtain labs; A1C/POCs Obtain collateral from sister Obtain records from last hospitalization. MOCA Referral for DMH services if patient is agreeable. encourage medication compliance;consider VARGAS discharge planning 09/11: Elevated fasting blood sugar elevated hemoglobin A1c 9.2 med consult placed put in point of care needed will start metformin Would benefit from clarity over recent hospitalization what this were done details regarding treatment continue Haldol unclear if patient has Healthcare proxy his [place] was low slowed cognition with poor details in depth at times during blankly regarding making judgments Unclear if any of this relates to past coma or 2 hypothyroidism. He does seem more impaired than when last seen unclear when last imaging was. Continue Haldol sitter neuro indira involvement regarding diagnostic picture. Patient does remain paranoid blunted suspicious apathetic. He might benefit from longer-term placement if available and appropriate at a later time involved H involvement would be quite helpful 09/12: cont haldol get records ? hcp ? start antidep unclear hx 09/13: Keeping to self. More talkative today. Pt concerned he will be transferred to [facility]. Pt stated, The paper I signed yesterday. Are you going to send me back to the last hospital? That place was horrible . Pt was educated he signed a release of information with Dr. Gonzalez to obtain records from [facility]. Pt was given a copy of the release he signed. Despite this, pt continues to be anxious about being transferred. Pt denies SI/HI/VH/AH. 09/14: Keeping to self. active on unit. showered. Pt reports feeling alright today; pt reports he is worried about where I'm going to go . Pt continues concerned he will be transferred to [facility]. Pt denies SI/HI/VH/AH. 09/15:Pt reports feeling alright today; pt continues to report he is worried about where I'm going to go . Responding with brief responses. Guarded. Observed standing in one place for a long period of time. Appears confused. Pt denies SI/HI/VH/AH. T/W spoke to patient's sister, Ros, with patients verbal consent. Ros reports concerns regarding patients ability to make decisions regarding his mental and physical health. She plans on contacting legal advice on obtaining guardianship of patient. 09/16:Patient's presents similar to yesterday's presentation. Responding with brief responses. Guarded. Observed standing in one place for a long period of time, when asked what he is doing, pt stated, I don't know . Pt reports he plans on contacting his sister today and try to convince her for me to stay there . Pt denies SI/HI/VH/AH. Continue current tx plan. 09/17: brief responses. Guarded. Continues to transit planning manager one place for a long period of time, when asked what he is doing, pt stated, I don't know . Pt denies SI/HI/VH/AH. T/W and Dr. Gonzalez spoke to patient's sister, Ros. Ros stated being [facility] HCP and plans on finding document. She plans on coming to the hospital on Saturday to be present for [facility] intake. 09/21: No changes 09/22:Patient flat apathetic difficult insight and judgment his sister is healthcare proxy if needed patient is accepting medical treatment [facility] 09/23:Considers starting Haldol Decanoate patient is agreeable superficially difficulty with exec [facility] 09/24:Pt seen in f/u mood flat dysphoric difficulty engaging in conversation preoccupied with thought he wont be living with family thing slowed apathetic no clear response with namenda ? some improvement inc lamictal start low dose sertraline inc lamictal ck tsh 09/25:Start Abilify as augmentation with Haldol see if can be more stimulating regarding depressed mood apathetic limited engagement sertraline 50 mg Lamictal 25 b.i.d. [facility] which would have structure unclear if patient can engage with this he remains quite depressed has delusional beliefs regarding housing and that things have been done he has repeatedly tried to reach out to his sister denies active SI needs much help dressing talking with others encouragement to eat severe thought blocking Abilify might be more stimulating than Haldol which can be more dulling 09/26:Abilify started sertraline Lamictal encouraged step-down to [facility] encourage reality orientation denies active SI 09/27: Continue current regimen and plans 09/28: Continue current regimen and plans. 09/29: Referral to [facility] [place] increase Abilify to 5 mg daily eventually try and taper Haldol sertraline 50 mg daily 09/30:Increase Abilify to 10 mg lower Haldol to 7 mg continue sertraline and Lamictal 10/01:Abilify increased to 10 mg continue to taper Haldol sertraline 100 mg Lamictal increased to 75 mg patient apathetic withdrawn difficulty with placement some paranoia continues difficulty with decision making at times. Not physically aggressive internally preoccupied seems somewhat improved with Abilify sertraline Continue discharge planning 10/02:Patient somewhat blunted flat slowed thinking during the day times staring. Change Abilify to 10 mg at bedtime. Scheduled Haldol will lowered to 2.5 mg Continue sertraline 100 mg Namenda 5 b.i.d. 10/03:Haldol discontinued modafinil low-dose monitor for psychosis or agitation continue discharge planning 10/06: May need to firm healthcare proxy calls have been placed to sister to try to help in discharge planning. Referrals made. Patient cooperative with care 10/07:Pharmacy ordering Abilify maintain a increase modafinil 100 mg patient remains flat passive depressed some improvement noted no current paranoia noted continue discharge planning no current safe discharge plan 10/08: Increase Lamictal 100 mg Abilify Maintena 400 mg hold modafinil unclear if was overly stimulating patient continues to present internally preoccupied. 10/09:Healthcare proxy invoked discharge planning continue Lamictal Abilify pending maintain a 10/10:Healthcare proxy invoked new CV signed discharge planning. 10/11 keep same treatment 10/12 keep same treatment 10/13: Continue plan of care Lamictal Abilify discharge planning sertraline 10/14: stable. continue current mgmt. 10/15: stable. continue current mgmt. 10/16: stable presentation. continue current mgmt. 10/17: as for yesterday. 10/18: no changes. 10/19: stabel, safe. no change. 10/20: no change in presentation. calm, cooperative. active on unit, social with select peers, attending groups. Pt reports feeling alright . denies SI/HI/VH/AH. Social work waiting to hear from possible placement location. Continue current tx plan. 10/21: continue current tx plan. awaiting placement. 10/22: calm, cooperative. active on unit, social with select peers, attending groups. Pt reports feeling good ; pt stated, I'm waiting to see where I'm going . denies SI/HI/VH/AH. Showered with encouragement. 10/23: continue current tx plan. 10/24: calm, cooperative. active on unit, social with select peers, attending groups. Pt reports feeling good ; pt stated, I just want a place to live . 10/25- likely at baseline for him- CTP 10/26 CTP likely needs placement 10/27: continue current tx plan. awaiting placement. 10/28: Similar to yesterday. No change in presentation. 10/29: Pt reports feeling good ;pt stated, just waiting for a place to live . denies any issues at this time. 10/30: calm, cooperative. active on unit, social with select peers, attending groups. Pt reports feeling worried about where I am going to live . denies any issues at this time. 10/21: no change in presentation. continue current tx plan. 11/01: continue current management and treatment plan. 11/02: Continue current management and treatment plan. 11/03: Continue current management and treatment plan. 11/04: Active on unit. calm, cooperative. social with select peers, attending groups. denies any issues at this time. He reports sleeping well. Pt reports he would be interested in applying for [facility] services; social work aware. 11/05: Active on unit. calm, cooperative. social with select peers, attending groups. denies any issues at this time. Pt reports feeling okay ; he reports anxiety regarding placement. Continue current tx plan. 11/07/23 DM referral has appropriate concerns re living stuation cont abilify lamictal 11/08/23 Pt cooperative with care d/c planning working with cont d/c planning cont lamictal abilify 11/12/23 Patient increasingly despairing aware of no clear discharge plan periods needs cuing for much functioning limited social engaged needs help regarding diabetes and medication compliance reportedly had been rejected by multiple rest homes patient not threatening intermittently hopeless helpless very limited family contact at this time 11/13/23 pt flat depressed hopeless helpless unable to fx without structure 11/15 continue tx. 11/16 continue tx. 11/18/2023 Continue plan of care referral to [facility] TSH low will decrease levothyroxine 11/19/23 Pt flat dysphor ic inc hopeless helpless lamictal 150 hs dec levothyroxine 150 d/c planning cont 11/20/23 lamictal inc d/c planning [facility] referral 12/02/2023 Continue Lamictal Abilify patient cooperative with care gets despairing at times regarding lack of family support problematic discharge planning in relationship to finding suitable structured place to live 12/02: Social with peers. Per nursing, pt did not sleep last night. Pt reports he did not sleeping because he wasn't tired but feel okay ; ordered Ativan 1mg PO bedtime for tonight, pt aware. 12/03: In bed sleeping, pt reports he is catching up on sleep from the night before. Calm, cooperative. T/W and floor service worker spring, Billie, with pt to discuss possibly going to the [facility]. Pt reports he would like to call his sister and speak to her before deciding. DC Ativan. 12/04: Active on unit, social with peers. attending groups. T/W and floor service worker spring, Billie, met with pt to discuss discharge plan. Pt reports he doesn't know if he would want to go [place]; he states he would rather live on the street because I've done it before . Pt encouraged to consider benefits of going to a [place] with the winter months coming; he agreed to doing phone intake with pediatric social worker on Saturday with [facility]. 12/05: Pt presents similar to yesterday. Continues to perseverate about [facility] being a [place] and not a program; He continues to agree to do phone intake on Saturday. Discussed VARGAS, pt reports he want time to consider d/t not liking needles . 12/08: Pt had phone interview with [facility], however, after multiple attempts at calling them, no one at [facility] picked up the phone to conduct interview. floor service worker spring to get into contact with them again. Pt denies any issues at this time. 12/09: Active on unit, social with peers. Pt denies any issues at this time. Patient agreed to receiving Abilify Maintena; risks/benefits reviewed. Waiting on placement. 12/10: Patient received Abilify Maintena yesterday. He denies any side effects. Pleasant. Waiting on placement. 12/11: continue current tx plan. 12/12: similar to days prior. waiting on placement. continue current tx plan. 12/13: appearing more depressed or demoralized. notes lots of people come and go. continue current mgmt. 12/14: same as for yesterday: find me a place to live? continue current mgmt. 12/15: out and about more. otherwise stable. continue current mgmt. 12/16: continue current tx plan. 12/17: continue current tx plan. 12/18: awaiting placement. denies any issues. 12/19: Pt reports feeling alright ; Social work continues to work on placement. Pt denies any issues at this time. Pt reports sleeping well. 12/20: Continue plan of care 12/21: Continue plan of care 12/22: continue current tx plan. 12/23: continue tx plan. 12/24: continue tx plan. 12/25: similar to days prior. waiting on placement. 12/26: Continue current tx plan. 12/27: Continue current management and treatment plan. 12/28: Continue current management and treatment plan. 12/29: In bed, tested positive for Covid. Vomited x1 per nursing. Pt reports feeling okay ; sleeping most of shift. Continue current tx plan. 12/30: Pt reports feeling okay ; continues on isolation d/t being Covid positive. Utilizing IPad. Pt reports sleeping well. denies SI/HI/VH/AH. Has not vomited today. 12/31: Pt reports feeling alright ; pt stated, I still have a stuffy nose, cough and headache but I'm starting to feel better . continues on isolation. denies other issues at this time. Continue current tx plan. 01/01: pt reports covid symptoms are improving. continues waiting on placement. 01/02: Continue tx plan. 01/05/24: no changes. 01/05: Active on unit. Pt reports feeling okay today; denies any issues at this time. pt had meeting with [facility] to be placed on list for temporary placement; pt declined. Dr. Gonzalez to speak to patient regarding this. 01/06: Discussed placement; pt reports he is thinking about saying yes to the motel . pt reports he does not believe his sister or pediatric social worker that he has money saved in the bank. Pt believes if he left to go to the motel he would be stuck there with no money . Social work to discuss with pt. 01/07: Active on unit. social with peers. denies any issues. Pt reports feeling okay ; reports he is still thinking about where he will go after discharge. 01/08: waiting on placement. continue current tx plan. 01/09: Patient continues to wait on placement. 119: Continue current management and treatment plan. 03/13: Continue current management and treatment plan. 01/12: waiting on placement. 01/13: continue current tx plan. 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 noted on the unit to fixate on certain female peers. 01/24 continues with impaired insight/judgement- risk to others requiring inpatient and 1;1 01/25 given poor insight and stalking behavior continues to need inpt level of stay 02/01/24 Patient with odd affect feels safe in this setting requires structured setting given neurocognitive behavioral difficulties 02/02/24 Pt flat blunted not aggressive but can be intrusive needs help with medication and cueing 02/09/2024: Awaiting placement. Without appropriate placement, would lead to rapid decompensation and inability to care for self. Plan 1. Continue with same treatment. 2. Waiting for placement Reason for continued inpatient stay Substantial Risk for: inability to function, rapid decompensation and med/psych decompensation Time Spent With Patient Time: Total time managing care of this patient today __20__ minutes.
[2024-02-12] MEDS: metFORMIN HCl ER 500 MG TAB.ER.24H 1000 MG PO (15:59)
[2024-02-12] MEDS: lamoTRIgine 100 MG TABLET 150 MG PO (19:59)
[2024-02-12 20:00] VITALS: BP 118/72; PULSE 82; RESP 17; TEMP 36.2; O2SAT 96
[2024-02-12 20:01] LABS: Glucose, Whole Blood 101 mg/dL (60-115)
[2024-02-12] MEDS: Insulin Glargine,Hum.rec.anlog 100 UNIT/ML 10 ML VIAL 20 UNIT SUBCUT (20:01)
[2024-02-12] MEDS: traZODone HCL 50 MG TABLET PO (20:56)
[2024-02-13] MEDS: Levothyroxine Sodium 150 MCG TABLET PO (05:46)
[2024-02-13 07:33] LABS: Glucose, Whole Blood 123 mg/dL (60-115)
[2024-02-13 08:32] VITALS: BP 118/65; PULSE 75; RESP 17; TEMP 36; O2SAT 97
[2024-02-13] MEDS: Sertraline HCL 50 MG TABLET PO (08:34)
[2024-02-13] MEDS: Memantine HCl 5 MG TABLET PO ×2 (08:34→20:15)
[2024-02-13 09:05] LABS: Creatinine Clr Calc Pharmacy 104.5; Estimated Glomerular Filt Rate > 60
--- NOTE | 2024-02-13 15:10 | HO.PSYCHPN ---
Subjective Subjective Date of Service: 02/13/24 Reason For Visit: paranoia cognitive impairment Subjective Notes: Conditional Voluntary Interim History: The nursing staff reported no change on mental status. On interview, he denied new symptoms, waiting for placement. Mental Status Exam Mental Status Exam Patient Appearance: Appropriate Patient Orientation: Person and Situation Level of Consciousness: Awake and Appropriate Patient Behavior: Guarded and Passive Mood Description: Withdrawn Affect Description: Constricted Patient Cognition Impaired: Yes Ability to Follow Directions: Good Speech Pattern: Clear 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: None Delusions: Ideas of Reference Thought Process: Distracted and Slowed Thinking Thought Content: positive for Circumstantial Judgement: Fair Diagnostics Vital Signs (24Hr): Vital Signs - 24 hr 02/12/24 20:00 02/13/24 08:32 Temperature 97.1 F 96.8 F Pulse Rate 82 75 Respiratory Rate 17 17 Blood Pressure 118/72 118/65 Pulse Oximetry 96 97 Oxygen Delivery Method Room Air Room Air BMI result Body Mass Index 32.5 Labs 09/10/23 20:00 02/13/24 08:44 Labs: Laboratory Results - last 48 hr 02/12/24 02/12/24 02/13/24 05:58 19:51 06:29 Creatinine Estim Creat Clear Calc Estimated GFR POC Glucose 112 101 123 H 02/13/24 08:44 Creatinine 0.88 Estim Creat Clear Calc 104.5 Estimated GFR > 60 POC Glucose Imaging Radiology Impressions: ITS Impressions Brain MRI 09/19/23 20:33 IMPRESSION: 1. No demonstrated acute intracranial abnormalities. 2. Chronic mild to moderate nonspecific white matter changes, most notably in the deep white matter of the right frontal lobe. Mild to moderate generalized cerebral volume loss. Medications Medications Current Medications Acetaminophen (Acetaminophen 325 Mg Tablet) 650 mg PO Q6H PRN PRN Reason: Headache/Pain Mild Scale (1-3) Last Admin: 01/01/24 08:45 Dose: 650 mg Al Hydroxide/Mg Hydroxide (Magnesium Hydrox/Alum Hydrox 30 Ml Oral.Susp) 30 ml PO Q6H PRN PRN Reason: Heartburn/Nausea Last Admin: 11/27/23 10:48 Dose: 30 ml Aripiprazole (Aripiprazole Er 300 Mg Suser.Syr) 300 mg IM Q28D@0900 MANAS Last Admin: 02/05/24 10:14 Dose: 300 mg Benzocaine (Throat Lozenge, Medicated Lozenge) 1 lozenge MUCOUS MEM Q2H PRN PRN Reason: Sore Throat Last Admin: 12/30/23 20:59 Dose: 1 lozenge Benztropine Mesylate (Benztropine Mesylate 0.5 Mg Tablet) 0.5 mg PO TID PRN PRN Reason: Extrapyramidal Effects Glucose (Glucose Gel 15 Gm Gel..Gram.) 15 gm PO Q15M PRN; Protocol PRN Reason: per Hypoglycemia Standing Ord. Guaifenesin/Dextromethorphan (Guaifenesin Dm 100/10/5 Ml 5 Ml Syrup) 5 ml PO Q4H PRN PRN Reason: Cough Last Admin: 01/06/24 22:48 Dose: 5 ml Hydroxyzine HCl (Hydroxyzine Hcl 25 Mg Tablet) 25 mg PO Q6H PRN PRN Reason: Anxiety Last Admin: 02/05/24 23:17 Dose: 25 mg Dextrose (D10) 250 mls @ 750 mls/hr IV Q15M PRN; Protocol PRN Reason: per Hypoglycemia Standing Ord. Insulin Glargine (Insulin Glargine,Hum.Rec.Anlog 100 Unit/Ml 10 Ml Vial) 20 unit SUBCUT BEDTIME [facility] Last Admin: 02/12/24 20:01 Dose: 20 unit Lamotrigine (Lamotrigine 100 Mg Tablet) 150 mg PO BEDTIME [facility] Last Admin: 02/12/24 19:59 Dose: 150 mg Levothyroxine Sodium (Levothyroxine Sodium 150 Mcg Tablet) 150 mcg PO DAILY@0630 [facility] Last Admin: 02/13/24 05:46 Dose: 150 mcg Magnesium Hydroxide (Milk Of Magnesia 30 Ml Oral.Susp) 30 ml PO DAILY PRN PRN Reason: Constipation Memantine (Memantine Hcl 5 Mg Tablet) 5 mg PO BID [facility] Last Admin: 02/13/24 08:34 Dose: 5 mg Metformin HCl (Metformin Hcl Er 500 Mg Tab.Er.24h) 1,000 mg PO DAILY@1700 [facility] Last Admin: 02/12/24 15:59 Dose: 1,000 mg Ondansetron HCl (Ondansetron Odt 8 Mg Tab.Rapdis) 8 mg TRANSLINGU Q8H PRN PRN Reason: Nausea and Vomiting Last Admin: 12/31/23 08:39 Dose: 8 mg Sertraline HCl (Sertraline Hcl 50 Mg Tablet) 50 mg PO DAILY MANAS Last Admin: 02/13/24 08:34 Dose: 50 mg Simethicone (Simethicone 80 Mg Tab.Chew) 80 mg PO QIDWMHS PRN PRN Reason: Gas Trazodone HCl (Trazodone Hcl 50 Mg Tablet) 50 mg PO BEDTIME MRX1 PRN PRN Reason: Insomnia Last Admin: 02/12/24 20:56 Dose: 50 mg Allergies Allergies Allergy/AdvReac Type Severity Reaction Status Date / Time amoxicillin [AMOXICILLIN] Allergy Mild VOMITING/ABD Verified 09/10/23 19:44 PAIN Assessment & Plan Assessment & Plan (1) Schizoaffective disorder: Status: Acute Code(s): F25.9 - Schizoaffective disorder, unspecified (2) Hypothyroidism: Status: Acute Code(s): E03.9 - Hypothyroidism, unspecified (3) Type 2 diabetes mellitus: Status: Acute Code(s): E11.9 - Type 2 diabetes mellitus without complications (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 Plan: CV 15 minute safety checks Continue home medications: Haldol 10mg PO daily Synthroid 200mcg PO daily Obtain labs; A1C/POCs Obtain collateral from sister Obtain records from last hospitalization. MOCA Referral for DMH services if patient is agreeable. encourage medication compliance;consider VARGAS discharge planning 09/11: Elevated fasting blood sugar elevated hemoglobin A1c 9.2 med consult placed put in point of care needed will start metformin Would benefit from clarity over recent hospitalization what this were done details regarding treatment continue Haldol unclear if patient has Healthcare proxy his [place] was low slowed cognition with poor details in depth at times during blankly regarding making judgments Unclear if any of this relates to past coma or 2 hypothyroidism. He does seem more impaired than when last seen unclear when last imaging was. [facility] regarding diagnostic picture. Patient does remain paranoid blunted suspicious apathetic. He might benefit from longer-term placement if available and appropriate at a later time involved DM involvement would be quite helpful 09/12: cont haldol get records ? hcp ? start antidep unclear hx 09/13: Keeping to self. More talkative today. Pt concerned he will be transferred to [facility]. Pt stated, The paper I signed yesterday. Are you going to send me back to the last hospital? That place was horrible . Pt was educated he signed a release of information with Dr. Gonzalez to obtain records from [facility]. Pt was given a copy of the release he signed. Despite this, pt continues to be anxious about being transferred. Pt denies SI/HI/VH/AH. 09/14: Keeping to self. active on unit. showered. Pt reports feeling alright today; pt reports he is worried about where I'm going to go . Pt continues concerned he will be transferred to [facility]. Pt denies SI/HI/VH/AH. 09/15:Pt reports feeling alright today; pt continues to report he is worried about where I'm going to go . Responding with brief responses. Guarded. Observed standing in one place for a long period of time. Appears confused. Pt denies SI/HI/VH/AH. T/W spoke to patient's sister, Ros, with patients verbal consent. Ros reports concerns regarding patients ability to make decisions regarding his mental and physical health. She plans on contacting legal advice on obtaining guardianship of patient. 09/16:Patient's presents similar to yesterday's presentation. Responding with brief responses. Guarded. Observed standing in one place for a long period of time, when asked what he is doing, pt stated, I don't know . Pt reports he plans on contacting his sister today and try to convince her for me to stay there . Pt denies SI/HI/VH/AH. Continue current tx plan. 09/17: brief responses. Guarded. Continues to training mgr one place for a long period of time, when asked what he is doing, pt stated, I don't know . Pt denies SI/HI/VH/AH. T/W and Dr. Gonzalez spoke to patient's sister, Ros. Ros stated being [facility] HCP and plans on finding document. She plans on coming to the hospital on Saturday to be present for [facility] intake. 09/21: No changes 09/22:Patient flat apathetic difficult insight and judgment his sister is healthcare proxy if needed patient is accepting medical treatment Referral to [facility] 09/23:Considers starting Haldol Decanoate patient is agreeable superficially difficulty with exec fx was seen [facility] 09/24:Pt seen in f/u mood flat dysphoric difficulty engaging in conversation preoccupied with thought he wont be living with family thing slowed apathetic no clear response with namenda ? some improvement inc lamictal start low dose sertraline inc lamictal ck tsh 09/25:Start Abilify as augmentation with Haldol see if can be more stimulating regarding depressed mood apathetic limited engagement sertraline 50 mg Lamictal 25 b.i.d. referral to [facility] which would have structure unclear if patient can engage with this he remains quite depressed has delusional beliefs regarding housing and that things have been done he has repeatedly tried to reach out to his sister denies active SI needs much help dressing talking with others encouragement to eat severe thought blocking Abilify might be more stimulating than Haldol which can be more dulling 09/26:Abilify started sertraline Lamictal encouraged step-down to [facility] encourage reality orientation denies active SI 09/27: Continue current regimen and plans 09/28: Continue current regimen and plans. 09/29: Referral to [facility] increase Abilify to 5 mg daily eventually try and taper Haldol sertraline 50 mg daily 09/30:Increase Abilify to 10 mg lower Haldol to 7 mg continue sertraline and Lamictal 10/01:Abilify increased to 10 mg continue to taper Haldol sertraline 100 mg Lamictal increased to 75 mg patient apathetic withdrawn difficulty with placement some paranoia continues difficulty with decision making at times. Not physically aggressive internally preoccupied seems somewhat improved with Abilify sertraline Continue discharge planning 10/02:Patient somewhat blunted flat slowed thinking during the day times staring. Change Abilify to 10 mg at bedtime. Scheduled Haldol will lowered to 2.5 mg Continue sertraline 100 mg Namenda 5 b.i.d. 10/03:Haldol discontinued modafinil low-dose monitor for psychosis or agitation continue discharge planning 10/06: May need to firm healthcare proxy calls have been placed to sister to try to help in discharge planning. Referrals made. Patient cooperative with care 10/07:Pharmacy ordering Abilify maintain a increase modafinil 100 mg patient remains flat passive depressed some improvement noted no current paranoia noted continue discharge planning no current safe discharge plan 10/08: Increase Lamictal 100 mg Abilify Maintena 400 mg hold modafinil unclear if was overly stimulating patient continues to present internally preoccupied. 10/09:Healthcare proxy invoked discharge planning continue Lamictal Abilify pending maintain a 10/10:Healthcare proxy invoked new CV signed discharge planning. 10/11 keep same treatment 10/12 keep same treatment 10/13: Continue plan of care Lamictal Abilify discharge planning sertraline 10/14: stable. continue current mgmt. 10/15: stable. continue current mgmt. 10/16: stable presentation. continue current mgmt. 10/17: as for yesterday. 10/18: no changes. 10/19: stabel, safe. no change. 10/20: no change in presentation. calm, cooperative. active on unit, social with select peers, attending groups. Pt reports feeling alright . denies SI/HI/VH/AH. Social work waiting to hear from possible placement location. Continue current tx plan. 10/21: continue current tx plan. awaiting placement. 10/22: calm, cooperative. active on unit, social with select peers, attending groups. Pt reports feeling good ; pt stated, I'm waiting to see where I'm going . denies SI/HI/VH/AH. Showered with encouragement. 10/23: continue current tx plan. 10/24: calm, cooperative. active on unit, social with select peers, attending groups. Pt reports feeling good ; pt stated, I just want a place to live . 10/25- likely at baseline for him- CTP 10/26 CTP likely needs placement 10/27: continue current tx plan. awaiting placement. 10/28: Similar to yesterday. No change in presentation. 10/29: Pt reports feeling good ;pt stated, just waiting for a place to live . denies any issues at this time. 10/30: calm, cooperative. active on unit, social with select peers, attending groups. Pt reports feeling worried about where I am going to live . denies any issues at this time. 10/21: no change in presentation. continue current tx plan. 11/01: continue current management and treatment plan. 11/02: Continue current management and treatment plan. 11/03: Continue current management and treatment plan. 11/04: Active on unit. calm, cooperative. social with select peers, attending groups. denies any issues at this time. He reports sleeping well. Pt reports he would be interested in applying for [facility] services; social work aware. 11/05: Active on unit. calm, cooperative. social with select peers, attending groups. denies any issues at this time. Pt reports feeling okay ; he reports anxiety regarding placement. Continue current tx plan. 11/07/23 [facility] referral has appropriate concerns re living stuation cont abilify lamictal 11/08/23 Pt cooperative with care d/c planning working with cont d/c planning cont lamictal abilify 11/12/23 Patient increasingly despairing aware of no clear discharge plan periods needs cuing for much functioning limited social engaged needs help regarding diabetes and medication compliance reportedly had been rejected by multiple rest homes patient not threatening intermittently hopeless helpless very limited family contact at this time 11/13/23 pt flat depressed hopeless helpless unable to fx without structure 11/15 continue tx. 11/16 continue tx. 11/18/2023 Continue plan of care referral to [facility] TSH low will decrease levothyroxine 11/19/23 Pt flat dysphor ic inc hopeless helpless lamictal 150 hs dec levothyroxine 150 d/c planning cont 11/20/23 lamictal inc d/c planning h referral 12/02/2023 Continue Lamictal Abilify patient cooperative with care gets despairing at times regarding lack of family support problematic discharge planning in relationship to finding suitable structured place to live 12/02: Social with peers. Per nursing, pt did not sleep last night. Pt reports he did not sleeping because he wasn't tired but feel okay ; ordered Ativan 1mg PO bedtime for tonight, pt aware. 12/03: In bed sleeping, pt reports he is catching up on sleep from the night before. Calm, cooperative. T/W and weld lay out worker, Billie, with pt to discuss possibly going to the [facility]. Pt reports he would like to call his sister and speak to her before deciding. DC Ativan. 12/04: Active on unit, social with peers. attending groups. T/W and weld lay out worker, Billie, met with pt to discuss discharge plan. Pt reports he doesn't know if he would want to go to a homeless fdc; he states he would rather live on the street because I've done it before . Pt encouraged to consider benefits of going to a fdc with the winter months coming; he agreed to doing phone intake with social worker palliative care on Saturday with [facility]. 12/05: Pt presents similar to yesterday. Continues to perseverate about [facility] being a fdc and not a program; He continues to agree to do phone intake on Saturday. Discussed VARGAS, pt reports he want time to consider d/t not liking needles . 12/08: Pt had phone interview with [facility], however, after multiple attempts at calling them, no one at [facility] picked up the phone to conduct interview. weld lay out worker to get into contact with them again. Pt denies any issues at this time. 12/09: Active on unit, social with peers. Pt denies any issues at this time. Patient agreed to receiving Abilify Maintena; risks/benefits reviewed. Waiting on placement. 12/10: Patient received Abilify Maintena yesterday. He denies any side effects. Pleasant. Waiting on placement. 12/11: continue current tx plan. 12/12: similar to days prior. waiting on placement. continue current tx plan. 12/13: appearing more depressed or demoralized. notes lots of people come and go. continue current mgmt. 12/14: same as for yesterday: find me a place to live? continue current mgmt. 12/15: out and about more. otherwise stable. continue current mgmt. 15: continue current tx plan. 12/17: continue current tx plan. 12/18: awaiting placement. denies any issues. 12/19: Pt reports feeling alright ; Social work continues to work on placement. Pt denies any issues at this time. Pt reports sleeping well. 12/20: Continue plan of care 12/21: Continue plan of care 12/22: continue current tx plan. 12/23: continue tx plan. 12/24: continue tx plan. 12/25: similar to days prior. waiting on placement. 12/26: Continue current tx plan. 12/27: Continue current management and treatment plan. 12/28: Continue current management and treatment plan. 12/29: In bed, tested positive for Covid. Vomited x1 per nursing. Pt reports feeling okay ; sleeping most of shift. Continue current tx plan. 12/30: Pt reports feeling okay ; continues on isolation d/t being Covid positive. Utilizing IPad. Pt reports sleeping well. denies SI/HI/VH/AH. Has not vomited today. 12/31: Pt reports feeling alright ; pt stated, I still have a stuffy nose, cough and headache but I'm starting to feel better . continues on isolation. denies other issues at this time. Continue current tx plan. 01/01: pt reports covid symptoms are improving. continues waiting on placement. 01/02: Continue tx plan. 01/05/24: no changes. 01/05: Active on unit. Pt reports feeling okay today; denies any issues at this time. pt had meeting with [facility] to be placed on list for temporary placement; pt declined. Dr. Gonzalez to speak to patient regarding this. 01/06: Discussed placement; pt reports he is thinking about saying yes to the motel . pt reports he does not believe his sister or social worker palliative care that he has money saved in the bank. Pt believes if he left to go to the motel he would be stuck there with no money . Social work to discuss with pt. 01/07: Active on unit. social with peers. denies any issues. Pt reports feeling okay ; reports he is still thinking about where he will go after discharge. 01/08: waiting on placement. continue current tx plan. 01/09: Patient continues to wait on placement. 119: Continue current management and treatment plan. 03/13: Continue current management and treatment plan. 01/12: waiting on placement. 01/13: continue current tx plan. 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 noted on the unit to fixate on certain female peers. 01/24 continues with impaired insight/judgement- risk to others requiring inpatient and 1;1 01/25 given poor insight and stalking behavior continues to need inpt level of stay 02/01/24 Patient with odd affect feels safe in this setting requires structured setting given neurocognitive behavioral difficulties 02/02/24 Pt flat blunted not aggressive but can be intrusive needs help with medication and cueing 02/09/2024: Awaiting placement. Without appropriate placement, would lead to rapid decompensation and inability to care for self. Plan 1. Continue with same treatment. 2. Waiting for placement Reason for continued inpatient stay Substantial Risk for: inability to function, rapid decompensation and med/psych decompensation Time Spent With Patient Time: Total time managing care of this patient today __20__ minutes.
[2024-02-13] MEDS: metFORMIN HCl ER 500 MG TAB.ER.24H 1000 MG PO (17:20)
[2024-02-13 19:36] LABS: Glucose, Whole Blood 150 mg/dL (60-115)
[2024-02-13 20:00] VITALS: BP 131/68; PULSE 77; RESP 16; TEMP 36.9; O2SAT 98
[2024-02-13] MEDS: lamoTRIgine 100 MG TABLET 150 MG PO (20:14)
[2024-02-13] MEDS: traZODone HCL 50 MG TABLET PO (20:15)
[2024-02-13] MEDS: Insulin Glargine,Hum.rec.anlog 100 UNIT/ML 10 ML VIAL 20 UNIT SUBCUT (20:20)
[2024-02-14] MEDS: Levothyroxine Sodium 150 MCG TABLET PO (06:30)
[2024-02-14 06:55] LABS: Glucose, Whole Blood 110 mg/dL (60-115)
[2024-02-14 08:30] VITALS: BP 128/69; PULSE 79; RESP 16; TEMP 36.4; O2SAT 97
[2024-02-14] MEDS: Sertraline HCL 50 MG TABLET PO (08:38)
[2024-02-14] MEDS: Memantine HCl 5 MG TABLET PO ×2 (08:38→20:05)
--- NOTE | 2024-02-14 16:03 | HO.PSYCHPN ---
Subjective Subjective Date of Service: 02/14/24 Reason For Visit: paranoia cognitive impairment Subjective Notes: Conditional Voluntary Interim History: The nursing staff reported no changes in his mental status cooperative and pleasant. On interview the patient denies new symptoms, waiting for placement. Mental Status Exam Mental Status Exam Patient Appearance: Appropriate Patient Orientation: Person and Situation Level of Consciousness: Awake and Appropriate Patient Behavior: Guarded and Passive Mood Description: Withdrawn Affect Description: Constricted Patient Cognition Impaired: Yes Ability to Follow Directions: Good Speech Pattern: Clear 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: None Delusions: Not Present Thought Process: Distracted and Slowed Thinking Thought Content: positive for [place] and positive for Poverty of Content Judgement: Poor Diagnostics Vital Signs (24Hr): Vital Signs - 24 hr 02/13/24 20:00 02/14/24 08:30 Temperature 98.5 F 97.6 F Pulse Rate 77 79 Respiratory Rate 16 16 Blood Pressure 131/68 128/69 Pulse Oximetry 98 97 Oxygen Delivery Method Room Air Room Air BMI result Body Mass Index 32.5 Labs 09/10/23 20:00 02/13/24 08:44 Labs: Laboratory Results - last 48 hr 02/12/24 02/13/24 02/13/24 19:51 06:29 08:44 Creatinine 0.88 Estim Creat Clear Calc 104.5 Estimated GFR > 60 POC Glucose 101 123 H 02/13/24 02/14/24 19:30 06:30 Creatinine Estim Creat Clear Calc Estimated GFR POC Glucose 150 H 110 Imaging Radiology Impressions: ITS Impressions Brain MRI 09/19/23 20:33 IMPRESSION: 1. No demonstrated acute intracranial abnormalities. 2. Chronic mild to moderate nonspecific white matter changes, most notably in the deep white matter of the right frontal lobe. Mild to moderate generalized cerebral volume loss. Medications Medications Current Medications Acetaminophen (Acetaminophen 325 Mg Tablet) 650 mg PO Q6H PRN PRN Reason: Headache/Pain Mild Scale (1-3) Last Admin: 01/01/24 08:45 Dose: 650 mg Al Hydroxide/Mg Hydroxide (Magnesium Hydrox/Alum Hydrox 30 Ml Oral.Susp) 30 ml PO Q6H PRN PRN Reason: Heartburn/Nausea Last Admin: 11/27/23 10:48 Dose: 30 ml Aripiprazole (Aripiprazole Er 300 Mg Suser.Syr) 300 mg IM Q28D@0900 MANAS Last Admin: 02/05/24 10:14 Dose: 300 mg Benzocaine (Throat Lozenge, Medicated Lozenge) 1 lozenge MUCOUS MEM Q2H PRN PRN Reason: Sore Throat Last Admin: 12/30/23 20:59 Dose: 1 lozenge Benztropine Mesylate (Benztropine Mesylate 0.5 Mg Tablet) 0.5 mg PO TID PRN PRN Reason: Extrapyramidal Effects Glucose (Glucose Gel 15 Gm Gel..Gram.) 15 gm PO Q15M PRN; Protocol PRN Reason: per Hypoglycemia Standing Ord. Guaifenesin/Dextromethorphan (Guaifenesin Dm 100/10/5 Ml 5 Ml Syrup) 5 ml PO Q4H PRN PRN Reason: Cough Last Admin: 01/06/24 22:48 Dose: 5 ml Hydroxyzine HCl (Hydroxyzine Hcl 25 Mg Tablet) 25 mg PO Q6H PRN PRN Reason: Anxiety Last Admin: 02/05/24 23:17 Dose: 25 mg Dextrose (D10) 250 mls @ 750 mls/hr IV Q15M PRN; Protocol PRN Reason: per Hypoglycemia Standing Ord. Insulin Glargine (Insulin Glargine,Hum.Rec.Anlog 100 Unit/Ml 10 Ml Vial) 20 unit SUBCUT BEDTIME [facility] Last Admin: 02/13/24 20:20 Dose: 20 unit Lamotrigine (Lamotrigine 100 Mg Tablet) 150 mg PO BEDTIME [facility] Last Admin: 02/13/24 20:14 Dose: 150 mg Levothyroxine Sodium (Levothyroxine Sodium 150 Mcg Tablet) 150 mcg PO DAILY@0630 [facility] Last Admin: 02/14/24 06:30 Dose: 150 mcg Magnesium Hydroxide (Milk Of Magnesia 30 Ml Oral.Susp) 30 ml PO DAILY PRN PRN Reason: Constipation Memantine (Memantine Hcl 5 Mg Tablet) 5 mg PO BID [facility] Last Admin: 02/14/24 08:38 Dose: 5 mg Metformin HCl (Metformin Hcl Er 500 Mg Tab.Er.24h) 1,000 mg PO DAILY@1700 [facility] Last Admin: 02/13/24 17:20 Dose: 1,000 mg Ondansetron HCl (Ondansetron Odt 8 Mg Tab.Rapdis) 8 mg TRANSLINGU Q8H PRN PRN Reason: Nausea and Vomiting Last Admin: 12/31/23 08:39 Dose: 8 mg Sertraline HCl (Sertraline Hcl 50 Mg Tablet) 50 mg PO DAILY MANAS Last Admin: 02/14/24 08:38 Dose: 50 mg Simethicone (Simethicone 80 Mg Tab.Chew) 80 mg PO QIDWMHS PRN PRN Reason: Gas Trazodone HCl (Trazodone Hcl 50 Mg Tablet) 50 mg PO BEDTIME MRX1 PRN PRN Reason: Insomnia Last Admin: 02/13/24 20:15 Dose: 50 mg Allergies Allergies Allergy/AdvReac Type Severity Reaction Status Date / Time amoxicillin [AMOXICILLIN] Allergy Mild VOMITING/ABD Verified 09/10/23 19:44 PAIN Assessment & Plan Assessment & Plan (1) Schizoaffective disorder: Status: Acute Code(s): F25.9 - Schizoaffective disorder, unspecified (2) Hypothyroidism: Status: Acute Code(s): E03.9 - Hypothyroidism, unspecified (3) Type 2 diabetes mellitus: Status: Acute Code(s): E11.9 - Type 2 diabetes mellitus without complications (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 Plan: CV 15 minute safety checks Continue home medications: Haldol 10mg PO daily Synthroid 200mcg PO daily Obtain labs; A1C/POCs Obtain collateral from sister Obtain records from last hospitalization. MOCA Referral for [facility] services if patient is agreeable. encourage medication compliance;consider VARGAS discharge planning 09/11: Elevated fasting blood sugar elevated hemoglobin A1c 9.2 med consult placed put in point of care needed will start metformin Would benefit from clarity over recent hospitalization what this were done details regarding treatment continue Haldol unclear if patient has Healthcare proxy his [place] was low slowed cognition with poor details in depth at times during blankly regarding making judgments Unclear if any of this relates to past coma or 2 hypothyroidism. He does seem more impaired than when last seen unclear when last imaging was. Continue Haldol sitter neuro indira involvement regarding diagnostic picture. Patient does remain paranoid blunted suspicious apathetic. He might benefit from longer-term placement if available and appropriate at a later time involved [facility] involvement would be quite helpful 09/12: cont haldol get records ? hcp ? start antidep unclear hx 09/13: Keeping to self. More talkative today. Pt concerned he will be transferred to [facility]. Pt stated, The paper I signed yesterday. Are you going to send me back to the last hospital? That place was horrible . Pt was educated he signed a release of information with Dr. Gonzalez to obtain records from [facility]. Pt was given a copy of the release he signed. Despite this, pt continues to be anxious about being transferred. Pt denies SI/HI/VH/AH. 09/14: Keeping to self. active on unit. showered. Pt reports feeling alright today; pt reports he is worried about where I'm going to go . Pt continues concerned he will be transferred to [facility]. Pt denies SI/HI/VH/AH. 09/15:Pt reports feeling alright today; pt continues to report he is worried about where I'm going to go . Responding with brief responses. Guarded. Observed standing in one place for a long period of time. Appears confused. Pt denies SI/HI/VH/AH. T/W spoke to patient's sister, Ros, with patients verbal consent. Ros reports concerns regarding patients ability to make decisions regarding his mental and physical health. She plans on contacting legal advice on obtaining guardianship of patient. 09/16:Patient's presents similar to yesterday's presentation. Responding with brief responses. Guarded. Observed standing in one place for a long period of time, when asked what he is doing, pt stated, I don't know . Pt reports he plans on contacting his sister today and try to convince her for me to stay there . Pt denies SI/HI/VH/AH. Continue current tx plan. 09/17: brief responses. Guarded. Continues to sonar watchstander one place for a long period of time, when asked what he is doing, pt stated, I don't know . Pt denies SI/HI/VH/AH. T/W and Dr. Gonzalez spoke to patient's sister, Ros. Ros stated being [facility] HCP and plans on finding document. She plans on coming to the hospital on Saturday to be present for [facility] intake. 09/21: No changes 09/22:Patient flat apathetic difficult insight and judgment his sister is healthcare proxy if needed patient is accepting medical treatment Referral to [facility] 09/23:Considers starting Haldol Decanoate patient is agreeable superficially difficulty with exec fx was seen [facility] 09/24:Pt seen in f/u mood flat dysphoric difficulty engaging in conversation preoccupied with thought he wont be living with family thing slowed apathetic no clear response with namenda ? some improvement inc lamictal start low dose sertraline inc lamictal ck tsh 09/25:Start Abilify as augmentation with Haldol see if can be more stimulating regarding depressed mood apathetic limited engagement sertraline 50 mg Lamictal 25 b.i.d. referral to [facility] which would have structure unclear if patient can engage with this he remains quite depressed has delusional beliefs regarding housing and that things have been done he has repeatedly tried to reach out to his sister denies active SI needs much help dressing talking with others encouragement to eat severe thought blocking Abilify might be more stimulating than Haldol which can be more dulling 09/26:Abilify started sertraline Lamictal encouraged step-down to [facility] encourage reality orientation denies active SI 09/27: Continue current regimen and plans 09/28: Continue current regimen and plans. 09/29: Referral to [facility] increase Abilify to 5 mg daily eventually try and taper Haldol sertraline 50 mg daily 09/30:Increase Abilify to 10 mg lower Haldol to 7 mg continue sertraline and Lamictal 10/01:Abilify increased to 10 mg continue to taper Haldol sertraline 100 mg Lamictal increased to 75 mg patient apathetic withdrawn difficulty with placement some paranoia continues difficulty with decision making at times. Not physically aggressive internally preoccupied seems somewhat improved with Abilify sertraline Continue discharge planning 10/02:Patient somewhat blunted flat slowed thinking during the day times staring. Change Abilify to 10 mg at bedtime. Scheduled Haldol will lowered to 2.5 mg Continue sertraline 100 mg Namenda 5 b.i.d. 10/03:Haldol discontinued modafinil low-dose monitor for psychosis or agitation continue discharge planning 10/06: May need to firm healthcare proxy calls have been placed to sister to try to help in discharge planning. Referrals made. Patient cooperative with care 10/07:Pharmacy ordering Abilify maintain a increase modafinil 100 mg patient remains flat passive depressed some improvement noted no current paranoia noted continue discharge planning no current safe discharge plan 10/08: Increase Lamictal 100 mg Abilify Maintena 400 mg hold modafinil unclear if was overly stimulating patient continues to present internally preoccupied. 10/09:Healthcare proxy invoked discharge planning continue Lamictal Abilify pending maintain a 10/10:Healthcare proxy invoked new CV signed discharge planning. 10/11 keep same treatment 10/12 keep same treatment 10/13: Continue plan of care Lamictal Abilify discharge planning sertraline 10/14: stable. continue current mgmt. 10/15: stable. continue current mgmt. 10/16: stable presentation. continue current mgmt. 10/17: as for yesterday. 10/18: no changes. 10/19: stabel, safe. no change. 10/20: no change in presentation. calm, cooperative. active on unit, social with select peers, attending groups. Pt reports feeling alright . denies SI/HI/VH/AH. Social work waiting to hear from possible placement location. Continue current tx plan. 10/21: continue current tx plan. awaiting placement. 10/22: calm, cooperative. active on unit, social with select peers, attending groups. Pt reports feeling good ; pt stated, I'm waiting to see where I'm going . denies SI/HI/VH/AH. Showered with encouragement. 10/23: continue current tx plan. 10/24: calm, cooperative. active on unit, social with select peers, attending groups. Pt reports feeling good ; pt stated, I just want a place to live . 8/24- likely at baseline for him- CTP 10/26 CTP likely needs placement 10/27: continue current tx plan. awaiting placement. 10/28: Similar to yesterday. No change in presentation. 10/29: Pt reports feeling good ;pt stated, just waiting for a place to live . denies any issues at this time. 10/30: calm, cooperative. active on unit, social with select peers, attending groups. Pt reports feeling worried about where I am going to live . denies any issues at this time. 10/21: no change in presentation. continue current tx plan. 11/01: continue current management and treatment plan. 11/02: Continue current management and treatment plan. 11/03: Continue current management and treatment plan. 11/04: Active on unit. calm, cooperative. social with select peers, attending groups. denies any issues at this time. He reports sleeping well. Pt reports he would be interested in applying for [facility] services; social work aware. 11/05: Active on unit. calm, cooperative. social with select peers, attending groups. denies any issues at this time. Pt reports feeling okay ; he reports anxiety regarding placement. Continue current tx plan. 11/07/23 [facility] referral has appropriate concerns re living stuation cont abilify lamictal 11/08/23 Pt cooperative with care d/c planning working with cont d/c planning cont lamictal abilify 11/12/23 Patient increasingly despairing aware of no clear discharge plan periods needs cuing for much functioning limited social engaged needs help regarding diabetes and medication compliance reportedly had been rejected by multiple rest homes patient not threatening intermittently hopeless helpless very limited family contact at this time 11/13/23 pt flat depressed hopeless helpless unable to fx without structure 11/15 continue tx. 11/16 continue tx. 11/18/2023 Continue plan of care referral to [facility] TSH low will decrease levothyroxine 11/19/23 Pt flat dysphor ic inc hopeless helpless lamictal 150 hs dec levothyroxine 150 d/c planning cont 11/20/23 lamictal inc d/c planning dmh referral 12/02/2023 Continue Lamictal Abilify patient cooperative with care gets despairing at times regarding lack of family support problematic discharge planning in relationship to finding suitable structured place to live 12/02: Social with peers. Per nursing, pt did not sleep last night. Pt reports he did not sleeping because he wasn't tired but feel okay ; ordered Ativan 1mg PO bedtime for tonight, pt aware. 12/03: In bed sleeping, pt reports he is catching up on sleep from the night before. Calm, cooperative. T/W and workers' compensation mediator, Billie, with pt to discuss possibly going to the [facility]. Pt reports he would like to call his sister and speak to her before deciding. DC Ativan. 12/04: Active on unit, social with peers. attending groups. T/W and workers' compensation mediator, Billie, met with pt to discuss discharge plan. Pt reports he doesn't know if he would want to go to a homeless intermediate; he states he would rather live on the street because I've done it before . Pt encouraged to consider benefits of going to a intermediate with the winter months coming; he agreed to doing phone intake with 7th grade social studies teacher on Saturday with [facility]. 12/05: Pt presents similar to yesterday. Continues to perseverate about [facility] being a intermediate and not a program; He continues to agree to do phone intake on Saturday. Discussed VARGAS, pt reports he want time to consider d/t not liking needles . 12/08: Pt had phone interview with [facility], however, after multiple attempts at calling them, no one at [facility] picked up the phone to conduct interview. workers' compensation mediator to get into contact with them again. Pt denies any issues at this time. 12/09: Active on unit, social with peers. Pt denies any issues at this time. Patient agreed to receiving Abilify Maintena; risks/benefits reviewed. Waiting on placement. 12/10: Patient received Abilify Maintena yesterday. He denies any side effects. Pleasant. Waiting on placement. 12/11: continue current tx plan. 12/12: similar to days prior. waiting on placement. continue current tx plan. 12/13: appearing more depressed or demoralized. notes lots of people come and go. continue current mgmt. 12/14: same as for yesterday: find me a place to live? continue current mgmt. 12/15: out and about more. otherwise stable. continue current mgmt. 12/16: continue current tx plan. 12/17: continue current tx plan. 12/18: awaiting placement. denies any issues. 12/19: Pt reports feeling alright ; Social work continues to work on placement. Pt denies any issues at this time. Pt reports sleeping well. 12/20: Continue plan of care 12/21: Continue plan of care 12/22: continue current tx plan. 12/23: continue tx plan. 12/24: continue tx plan. 12/25: similar to days prior. waiting on placement. 12/26: Continue current tx plan. 12/27: Continue current management and treatment plan. 12/28: Continue current management and treatment plan. 12/29: In bed, tested positive for Covid. Vomited x1 per nursing. Pt reports feeling okay ; sleeping most of shift. Continue current tx plan. 12/30: Pt reports feeling okay ; continues on isolation d/t being Covid positive. Utilizing IPad. Pt reports sleeping well. denies SI/HI/VH/AH. Has not vomited today. 12/31: Pt reports feeling alright ; pt stated, I still have a stuffy nose, cough and headache but I'm starting to feel better . continues on isolation. denies other issues at this time. Continue current tx plan. 01/01: pt reports covid symptoms are improving. continues waiting on placement. 01/02: Continue tx plan. 01/05/24: no changes. 01/05: Active on unit. Pt reports feeling okay today; denies any issues at this time. pt had meeting with [facility] to be placed on list for temporary placement; pt declined. Dr. Gonzalez to speak to patient regarding this. 01/06: Discussed placement; pt reports he is thinking about saying yes to the motel . pt reports he does not believe his sister or 7th grade social studies teacher that he has money saved in the bank. Pt believes if he left to go to the motel he would be stuck there with no money . Social work to discuss with pt. 01/07: Active on unit. social with peers. denies any issues. Pt reports feeling okay ; reports he is still thinking about where he will go after discharge. 01/08: waiting on placement. continue current tx plan. 01/09: Patient continues to wait on placement. 119: Continue current management and treatment plan. 03/13: Continue current management and treatment plan. 01/12: waiting on placement. 01/13: continue current tx plan. 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 noted on the unit to fixate on certain female peers. 01/24 continues with impaired insight/judgement- risk to others requiring inpatient and 01/25 given poor insight and stalking behavior continues to need inpt level of stay 02/01/24 Patient with odd affect feels safe in this setting requires structured setting given neurocognitive behavioral difficulties 02/02/24 Pt flat blunted not aggressive but can be intrusive needs help with medication and cueing 02/09/2024: Awaiting placement. Without appropriate placement, would lead to rapid decompensation and inability to care for self. Plan 1. Continue with same treatment. 2. Waiting for placement Reason for continued inpatient stay Substantial Risk for: inability to function, rapid decompensation and med/psych decompensation Time Spent With Patient Time: Total time managing care of this patient today _20___ minutes.
[2024-02-14] MEDS: metFORMIN HCl ER 500 MG TAB.ER.24H 1000 MG PO (18:30)
[2024-02-14 19:53] VITALS: BP 118/76; PULSE 79; RESP 16; TEMP 37.1; O2SAT 96
[2024-02-14] MEDS: traZODone HCL 50 MG TABLET PO (20:04)
[2024-02-14] MEDS: Insulin Glargine,Hum.rec.anlog 100 UNIT/ML 10 ML VIAL 20 UNIT SUBCUT (20:04)
[2024-02-14] MEDS: lamoTRIgine 100 MG TABLET 150 MG PO (20:05)
[2024-02-15] MEDS: Levothyroxine Sodium 150 MCG TABLET PO (06:07)
--- NOTE | 2024-02-15 06:53 | HO.PSYCHPN ---
Subjective Subjective Date of Service: 02/15/24 Reason For Visit: paranoia cognitive impairment Subjective Notes: Conditional Voluntary Interim History: The nursing staff reported the patient had being visible in the unit no changes in mental status. On interview the patient denies new symptoms waiting for placement. Mental Status Exam Mental Status Exam Patient Appearance: Appropriate Patient Orientation: Person and Situation Level of Consciousness: Awake and Appropriate Patient Behavior: Guarded and Passive Mood Description: Calm Affect Description: Constricted Patient Cognition Impaired: Yes Ability to Follow Directions: Good Speech Pattern: Clear 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: None Delusions: Ideas of Reference Thought Process: Distracted and Slowed Thinking Thought Content: positive for [place] and positive for Poverty of Content Judgement: Fair Diagnostics Vital Signs (24Hr): Vital Signs - 24 hr 02/14/24 08:30 02/14/24 19:53 Temperature 97.6 F 98.7 F Pulse Rate 79 79 Respiratory Rate 16 16 Blood Pressure 128/69 118/76 Pulse Oximetry 97 96 Oxygen Delivery Method Room Air Room Air BMI result Body Mass Index 32.5 Labs 09/10/23 20:00 02/13/24 08:44 Labs: Laboratory Results - last 48 hr 02/13/24 02/13/24 02/13/24 06:29 08:44 19:30 Creatinine 0.88 Estim Creat Clear Calc 104.5 Estimated GFR > 60 POC Glucose 123 H 150 H 02/14/24 06:30 Creatinine Estim Creat Clear Calc Estimated GFR POC Glucose 110 Imaging Radiology Impressions: ITS Impressions Brain MRI 09/19/23 20:33 IMPRESSION: 1. No demonstrated acute intracranial abnormalities. 2. Chronic mild to moderate nonspecific white matter changes, most notably in the deep white matter of the right frontal lobe. Mild to moderate generalized cerebral volume loss. Medications Medications Current Medications Acetaminophen (Acetaminophen 325 Mg Tablet) 650 mg PO Q6H PRN PRN Reason: Headache/Pain Mild Scale (1-3) Last Admin: 01/01/24 08:45 Dose: 650 mg Al Hydroxide/Mg Hydroxide (Magnesium Hydrox/Alum Hydrox 30 Ml Oral.Susp) 30 ml PO Q6H PRN PRN Reason: Heartburn/Nausea Last Admin: 11/27/23 10:48 Dose: 30 ml Aripiprazole (Aripiprazole Er 300 Mg Suser.Syr) 300 mg IM Q28D@0900 MANAS Last Admin: 02/05/24 10:14 Dose: 300 mg Benzocaine (Throat Lozenge, Medicated Lozenge) 1 lozenge MUCOUS MEM Q2H PRN PRN Reason: Sore Throat Last Admin: 12/30/23 20:59 Dose: 1 lozenge Benztropine Mesylate (Benztropine Mesylate 0.5 Mg Tablet) 0.5 mg PO TID PRN PRN Reason: Extrapyramidal Effects Glucose (Glucose Gel 15 Gm Gel..Gram.) 15 gm PO Q15M PRN; Protocol PRN Reason: per Hypoglycemia Standing Ord. Guaifenesin/Dextromethorphan (Guaifenesin Dm 100/10/5 Ml 5 Ml Syrup) 5 ml PO Q4H PRN PRN Reason: Cough Last Admin: 01/06/24 22:48 Dose: 5 ml Hydroxyzine HCl (Hydroxyzine Hcl 25 Mg Tablet) 25 mg PO Q6H PRN PRN Reason: Anxiety Last Admin: 02/05/24 23:17 Dose: 25 mg Dextrose (D10) 250 mls @ 750 mls/hr IV Q15M PRN; Protocol PRN Reason: per Hypoglycemia Standing Ord. Insulin Glargine (Insulin Glargine,Hum.Rec.Anlog 100 Unit/Ml 10 Ml Vial) 20 unit SUBCUT BEDTIME [facility] Last Admin: 02/14/24 20:04 Dose: 20 unit Lamotrigine (Lamotrigine 100 Mg Tablet) 150 mg PO BEDTIME [facility] Last Admin: 02/14/24 20:05 Dose: 150 mg Levothyroxine Sodium (Levothyroxine Sodium 150 Mcg Tablet) 150 mcg PO DAILY@0630 [facility] Last Admin: 02/15/24 06:07 Dose: 150 mcg Magnesium Hydroxide (Milk Of Magnesia 30 Ml Oral.Susp) 30 ml PO DAILY PRN PRN Reason: Constipation Memantine (Memantine Hcl 5 Mg Tablet) 5 mg PO BID [facility] Last Admin: 02/14/24 20:05 Dose: 5 mg Metformin HCl (Metformin Hcl Er 500 Mg Tab.Er.24h) 1,000 mg PO DAILY@1700 [facility] Last Admin: 02/14/24 18:30 Dose: 1,000 mg Ondansetron HCl (Ondansetron Odt 8 Mg Tab.Rapdis) 8 mg TRANSLINGU Q8H PRN PRN Reason: Nausea and Vomiting Last Admin: 12/31/23 08:39 Dose: 8 mg Sertraline HCl (Sertraline Hcl 50 Mg Tablet) 50 mg PO DAILY MANAS Last Admin: 02/14/24 08:38 Dose: 50 mg Simethicone (Simethicone 80 Mg Tab.Chew) 80 mg PO QIDWMHS PRN PRN Reason: Gas Trazodone HCl (Trazodone Hcl 50 Mg Tablet) 50 mg PO BEDTIME MRX1 PRN PRN Reason: Insomnia Last Admin: 02/14/24 20:04 Dose: 50 mg Allergies Allergies Allergy/AdvReac Type Severity Reaction Status Date / Time amoxicillin [AMOXICILLIN] Allergy Mild VOMITING/ABD Verified 09/10/23 19:44 PAIN Assessment & Plan Assessment & Plan (1) Schizoaffective disorder: Status: Acute Code(s): F25.9 - Schizoaffective disorder, unspecified (2) Hypothyroidism: Status: Acute Code(s): E03.9 - Hypothyroidism, unspecified (3) Type 2 diabetes mellitus: Status: Acute Code(s): E11.9 - Type 2 diabetes mellitus without complications (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 Plan: CV 15 minute safety checks Continue home medications: Haldol 10mg PO daily Synthroid 200mcg PO daily Obtain labs; A1C/POCs Obtain collateral from sister Obtain records from last hospitalization. MOCA Referral for [facility] services if patient is agreeable. encourage medication compliance;consider VARGAS discharge planning 09/11: Elevated fasting blood sugar elevated hemoglobin A1c 9.2 med consult placed put in point of care needed will start metformin Would benefit from clarity over recent hospitalization what this were done details regarding treatment continue Haldol unclear if patient has Healthcare proxy his [place] was low slowed cognition with poor details in depth at times during blankly regarding making judgments Unclear if any of this relates to past coma or 2 hypothyroidism. He does seem more impaired than when last seen unclear when last imaging was. Continue Haldol [facility] neuro [facility]ira involvement regarding diagnostic picture. Patient does remain paranoid blunted suspicious apathetic. He might benefit from longer-term placement if available and appropriate at a later time involved [facility] involvement would be quite helpful 09/12: cont haldol get records ? hcp ? start antidep unclear hx 09/13: Keeping to self. More talkative today. Pt concerned he will be transferred to [facility]. Pt stated, The paper I signed yesterday. Are you going to send me back to the last hospital? That place was horrible . Pt was educated he signed a release of information with Dr. Gonzalez to obtain records from [facility]. Pt was given a copy of the release he signed. Despite this, pt continues to be anxious about being transferred. Pt denies SI/HI/VH/AH. 09/14: Keeping to self. active on unit. showered. Pt reports feeling alright today; pt reports he is worried about where I'm going to go . Pt continues concerned he will be transferred to [facility]. Pt denies SI/HI/VH/AH. 09/15:Pt reports feeling alright today; pt continues to report he is worried about where I'm going to go . Responding with brief responses. Guarded. Observed standing in one place for a long period of time. Appears confused. Pt denies SI/HI/VH/AH. T/W spoke to patient's sister, Ros, with patients verbal consent. Ros reports concerns regarding patients ability to make decisions regarding his mental and physical health. She plans on contacting legal advice on obtaining guardianship of patient. 09/16:Patient's presents similar to yesterday's presentation. Responding with brief responses. Guarded. Observed standing in one place for a long period of time, when asked what he is doing, pt stated, I don't know . Pt reports he plans on contacting his sister today and try to convince her for me to stay there . Pt denies SI/HI/VH/AH. Continue current tx plan. 09/17: brief responses. Guarded. Continues to mobility engineer one place for a long period of time, when asked what he is doing, pt stated, I don't know . Pt denies SI/HI/VH/AH. T/W and Dr. Gonzalez spoke to patient's sister, Ros. Ros stated being [facility] HCP and plans on finding document. She plans on coming to the hospital on Saturday to be present for [facility] intake. 09/21: No changes 09/22:Patient flat apathetic difficult insight and judgment his sister is healthcare proxy if needed patient is accepting medical treatment Referral to [facility] 09/23:Considers starting Haldol Decanoate patient is agreeable superficially difficulty with exec fx was seen [facility] 09/24:Pt seen in f/u mood flat dysphoric difficulty engaging in conversation preoccupied with thought he wont be living with family thing slowed apathetic no clear response with namenda ? some improvement inc lamictal start low dose sertraline inc lamictal ck tsh 09/25:Start Abilify as augmentation with Haldol see if can be more stimulating regarding depressed mood apathetic limited engagement sertraline 50 mg Lamictal 25 b.i.d. referral to [facility] which would have structure unclear if patient can engage with this he remains quite depressed has delusional beliefs regarding housing and that things have been done he has repeatedly tried to reach out to his sister denies active SI needs much help dressing talking with others encouragement to eat severe thought blocking Abilify might be more stimulating than Haldol which can be more dulling 09/26:Abilify started sertraline Lamictal encouraged step-down to [facility] encourage reality orientation denies active SI 09/27: Continue current regimen and plans 09/28: Continue current regimen and plans. 09/29: Referral to [facility] increase Abilify to 5 mg daily eventually try and taper Haldol sertraline 50 mg daily 09/30:Increase Abilify to 10 mg lower Haldol to 7 mg continue sertraline and Lamictal 10/01:Abilify increased to 10 mg continue to taper Haldol sertraline 100 mg Lamictal increased to 75 mg patient apathetic withdrawn difficulty with placement some paranoia continues difficulty with decision making at times. Not physically aggressive internally preoccupied seems somewhat improved with Abilify sertraline Continue discharge planning 10/02:Patient somewhat blunted flat slowed thinking during the day times staring. Change Abilify to 10 mg at bedtime. Scheduled Haldol will lowered to 2.5 mg Continue sertraline 100 mg Namenda 5 b.i.d. 10/03:Haldol discontinued modafinil low-dose monitor for psychosis or agitation continue discharge planning 10/06: May need to firm healthcare proxy calls have been placed to sister to try to help in discharge planning. Referrals made. Patient cooperative with care 10/07:Pharmacy ordering Abilify maintain a increase modafinil 100 mg patient remains flat passive depressed some improvement noted no current paranoia noted continue discharge planning no current safe discharge plan 10/08: Increase Lamictal 100 mg Abilify Maintena 400 mg hold modafinil unclear if was overly stimulating patient continues to present internally preoccupied. 10/09:Healthcare proxy invoked discharge planning continue Lamictal Abilify pending maintain a 10/10:Healthcare proxy invoked new CV signed discharge planning. 10/11 keep same treatment 10/12 keep same treatment 10/13: Continue plan of care Lamictal Abilify discharge planning sertraline 10/14: stable. continue current mgmt. 10/15: stable. continue current mgmt. 10/16: stable presentation. continue current mgmt. 10/17: as for yesterday. 10/18: no changes. 10/19: stabel, safe. no change. 10/20: no change in presentation. calm, cooperative. active on unit, social with select peers, attending groups. Pt reports feeling alright . denies SI/HI/VH/AH. Social work waiting to hear from possible placement location. Continue current tx plan. 10/21: continue current tx plan. awaiting placement. 10/22: calm, cooperative. active on unit, social with select peers, attending groups. Pt reports feeling good ; pt stated, I'm waiting to see where I'm going . denies SI/HI/VH/AH. Showered with encouragement. 10/23: continue current tx plan. 10/24: calm, cooperative. active on unit, social with select peers, attending groups. Pt reports feeling good ; pt stated, I just want a place to live . 10/25- likely at baseline for him- CTP 10/26 CTP likely needs placement 10/27: continue current tx plan. awaiting placement. 10/28: Similar to yesterday. No change in presentation. 10/29: Pt reports feeling good ;pt stated, just waiting for a place to live . denies any issues at this time. 10/30: calm, cooperative. active on unit, social with select peers, attending groups. Pt reports feeling worried about where I am going to live . denies any issues at this time. 10/21: no change in presentation. continue current tx plan. 11/01: continue current management and treatment plan. 11/02: Continue current management and treatment plan. 11/03: Continue current management and treatment plan. 11/04: Active on unit. calm, cooperative. social with select peers, attending groups. denies any issues at this time. He reports sleeping well. Pt reports he would be interested in applying for [facility] services; social work aware. 11/05: Active on unit. calm, cooperative. social with select peers, attending groups. denies any issues at this time. Pt reports feeling okay ; he reports anxiety regarding placement. Continue current tx plan. 11/07/23 [facility] referral has appropriate concerns re living stuation cont abilify lamictal 11/08/23 Pt cooperative with care d/c planning working with cont d/c planning cont lamictal abilify 11/12/23 Patient increasingly despairing aware of no clear discharge plan periods needs cuing for much functioning limited social engaged needs help regarding diabetes and medication compliance reportedly had been rejected by multiple rest homes patient not threatening intermittently hopeless helpless very limited family contact at this time 11/13/23 pt flat depressed hopeless helpless unable to fx without structure 11/15 continue tx. 11/16 continue tx. 11/18/2023 Continue plan of care referral to [facility] TSH low will decrease levothyroxine 11/19/23 Pt flat dysphor ic inc hopeless helpless lamictal 150 hs dec levothyroxine 150 d/c planning cont 11/20/23 lamictal inc d/c planning dmh referral 12/02/2023 Continue Lamictal Abilify patient cooperative with care gets despairing at times regarding lack of family support problematic discharge planning in relationship to finding suitable structured place to live 12/02: Social with peers. Per nursing, pt did not sleep last night. Pt reports he did not sleeping because he wasn't tired but feel okay ; ordered Ativan 1mg PO bedtime for tonight, pt aware. 12/03: In bed sleeping, pt reports he is catching up on sleep from the night before. Calm, cooperative. T/W and workers compensation specialist, Billie, with pt to discuss possibly going to the [facility]. Pt reports he would like to call his sister and speak to her before deciding. DC Ativan. 12/04: Active on unit, social with peers. attending groups. T/W and workers compensation specialist, Billie, met with pt to discuss discharge plan. Pt reports he doesn't know if he would want to go to a homeless long-term; he states he would rather live on the street because I've done it before . Pt encouraged to consider benefits of going to a long-term with the winter months coming; he agreed to doing phone intake with high school social studies tutor on Saturday with [facility]. 12/05: Pt presents similar to yesterday. Continues to perseverate about [facility] being a long-term and not a program; He continues to agree to do phone intake on Saturday. Discussed VARGAS, pt reports he want time to consider d/t not liking needles . 12/08: Pt had phone interview with [facility], however, after multiple attempts at calling them, no one at [facility] picked up the phone to conduct interview. workers compensation specialist to get into contact with them again. Pt denies any issues at this time. 12/09: Active on unit, social with peers. Pt denies any issues at this time. Patient agreed to receiving Abilify Maintena; risks/benefits reviewed. Waiting on placement. 12/10: Patient received Abilify Maintena yesterday. He denies any side effects. Pleasant. Waiting on placement. 12/11: continue current tx plan. 12/12: similar to days prior. waiting on placement. continue current tx plan. 12/13: appearing more depressed or demoralized. notes lots of people come and go. continue current mgmt. 12/14: same as for yesterday: find me a place to live? continue current mgmt. 12/15: out and about more. otherwise stable. continue current mgmt. 12/16: continue current tx plan. 12/17: continue current tx plan. 12/18: awaiting placement. denies any issues. 12/19: Pt reports feeling alright ; Social work continues to work on placement. Pt denies any issues at this time. Pt reports sleeping well. 12/20: Continue plan of care 12/21: Continue plan of care 12/22: continue current tx plan. 12/23: continue tx plan. 12/24: continue tx plan. 12/25: similar to days prior. waiting on placement. 12/26: Continue current tx plan. 12/27: Continue current management and treatment plan. 12/28: Continue current management and treatment plan. 12/29: In bed, tested positive for Covid. Vomited x1 per nursing. Pt reports feeling okay ; sleeping most of shift. Continue current tx plan. 12/30: Pt reports feeling okay ; continues on isolation d/t being Covid positive. Utilizing IPad. Pt reports sleeping well. denies SI/HI/VH/AH. Has not vomited today. 12/31: Pt reports feeling alright ; pt stated, I still have a stuffy nose, cough and headache but I'm starting to feel better . continues on isolation. denies other issues at this time. Continue current tx plan. 01/01: pt reports covid symptoms are improving. continues waiting on placement. 01/02: Continue tx plan. 01/05/24: no changes. 01/05: Active on unit. Pt reports feeling okay today; denies any issues at this time. pt had meeting with [facility] to be placed on list for temporary placement; pt declined. Dr. Gonzalez to speak to patient regarding this. 01/06: Discussed placement; pt reports he is thinking about saying yes to the motel . pt reports he does not believe his sister or high school social studies tutor that he has money saved in the bank. Pt believes if he left to go to the motel he would be stuck there with no money . Social work to discuss with pt. 01/07: Active on unit. social with peers. denies any issues. Pt reports feeling okay ; reports he is still thinking about where he will go after discharge. 01/08: waiting on placement. continue current tx plan. 01/09: Patient continues to wait on placement. 119: Continue current management and treatment plan. 03/13: Continue current management and treatment plan. 01/12: waiting on placement. 01/13: continue current tx plan. 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 noted on the unit to fixate on certain female peers. 01/24 continues with impaired insight/judgement- risk to others requiring inpatient and 101/25 given poor insight and stalking behavior continues to need inpt level of stay 02/01/24 Patient with odd affect feels safe in this setting requires structured setting given neurocognitive behavioral difficulties 02/02/24 Pt flat blunted not aggressive but can be intrusive needs help with medication and cueing 02/09/2024: Awaiting placement. Without appropriate placement, would lead to rapid decompensation and inability to care for self. Plan 1. Continue with same treatment. 2. Waiting for placement Reason for continued inpatient stay Substantial Risk for: inability to function, rapid decompensation and med/psych decompensation Time Spent With Patient Time: Total time managing care of this patient today __20__ minutes.
[2024-02-15 06:54] LABS: Glucose, Whole Blood 102 mg/dL (60-115)
[2024-02-15 07:57] VITALS: BP 113/71; PULSE 70; RESP 16; TEMP 36; O2SAT 99
[2024-02-15] MEDS: Sertraline HCL 50 MG TABLET PO (08:23)
[2024-02-15] MEDS: Memantine HCl 5 MG TABLET PO ×2 (08:23→19:53)
[2024-02-15] MEDS: metFORMIN HCl ER 500 MG TAB.ER.24H 1000 MG PO (16:25)
[2024-02-15 19:52] VITALS: BP 123/70; PULSE 80; RESP 16; TEMP 36.5; O2SAT 96
[2024-02-15] MEDS: lamoTRIgine 100 MG TABLET 150 MG PO (19:52)
[2024-02-15] MEDS: Insulin Glargine,Hum.rec.anlog 100 UNIT/ML 10 ML VIAL 20 UNIT SUBCUT (19:53)
[2024-02-16] MEDS: Levothyroxine Sodium 150 MCG TABLET PO (05:53)
[2024-02-16 06:14] LABS: Glucose, Whole Blood 102 mg/dL (60-115)
--- NOTE | 2024-02-16 06:53 | P.PNPSI_ITS ---
Subjective Subjective Date of Service: 02/16/24 Reason For Visit: paranoia cognitive impairment Subjective Notes: Conditional Voluntary Interim History: The nursing staff reported the patient had been compliant with treatment, no changes in mental status. On interview the patient reports feeling fine, waiting for placement. Mental Status Exam Mental Status Exam Patient Appearance: Well Grooomed Patient Orientation: Person and Situation Level of Consciousness: Awake and Appropriate Patient Behavior: Guarded and Passive Mood Description: Withdrawn Affect Description: Constricted Patient Cognition Impaired: Yes Ability to Follow Directions: Fair Speech Pattern: Clear 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: None Delusions: Not Present Thought Process: Distracted and Slowed Thinking Thought Content: positive for [place] and positive for Poverty of Content Judgement: Fair Diagnostics Vital Signs (24Hr): Vital Signs - 24 hr 02/15/24 07:57 02/15/24 19:52 Temperature 96.8 F 97.7 F Pulse Rate 70 80 Respiratory Rate 16 16 Blood Pressure 113/71 123/70 Pulse Oximetry 99 96 Oxygen Delivery Method Room Air Room Air BMI result Body Mass Index 32.5 Labs 09/10/23 20:00 02/13/24 08:44 Labs: Laboratory Results - last 48 hr 02/14/24 02/15/24 02/16/24 06:30 06:39 05:55 POC Glucose 110 102 102 Imaging Radiology Impressions: ITS Impressions Brain MRI 09/19/23 20:33 IMPRESSION: 1. No demonstrated acute intracranial abnormalities. 2. Chronic mild to moderate nonspecific white matter changes, most notably in the deep white matter of the right frontal lobe. Mild to moderate generalized cerebral volume loss. Medications Medications Current Medications Acetaminophen (Acetaminophen 325 Mg Tablet) 650 mg PO Q6H PRN PRN Reason: Headache/Pain Mild Scale (1-3) Last Admin: 01/01/24 08:45 Dose: 650 mg Al Hydroxide/Mg Hydroxide (Magnesium Hydrox/Alum Hydrox 30 Ml Oral.Susp) 30 ml PO Q6H PRN PRN Reason: Heartburn/Nausea Last Admin: 11/27/23 10:48 Dose: 30 ml Aripiprazole (Aripiprazole Er 300 Mg Suser.Syr) 300 mg IM Q28D@0900 MANAS Last Admin: 02/05/24 10:14 Dose: 300 mg Benzocaine (Throat Lozenge, Medicated Lozenge) 1 lozenge MUCOUS MEM Q2H PRN PRN Reason: Sore Throat Last Admin: 12/30/23 20:59 Dose: 1 lozenge Benztropine Mesylate (Benztropine Mesylate 0.5 Mg Tablet) 0.5 mg PO TID PRN PRN Reason: Extrapyramidal Effects Glucose (Glucose Gel 15 Gm Gel..Gram.) 15 gm PO Q15M PRN; Protocol PRN Reason: per Hypoglycemia Standing Ord. Guaifenesin/Dextromethorphan (Guaifenesin Dm 100/10/5 Ml 5 Ml Syrup) 5 ml PO Q4H PRN PRN Reason: Cough Last Admin: 01/06/24 22:48 Dose: 5 ml Hydroxyzine HCl (Hydroxyzine Hcl 25 Mg Tablet) 25 mg PO Q6H PRN PRN Reason: Anxiety Last Admin: 02/05/24 23:17 Dose: 25 mg Dextrose (D10) 250 mls @ 750 mls/hr IV Q15M PRN; Protocol PRN Reason: per Hypoglycemia Standing Ord. Insulin Glargine (Insulin Glargine,Hum.Rec.Anlog 100 Unit/Ml 10 Ml Vial) 20 unit SUBCUT BEDTIME [facility] Last Admin: 02/15/24 19:53 Dose: 20 unit Lamotrigine (Lamotrigine 100 Mg Tablet) 150 mg PO BEDTIME [facility] Last Admin: 02/15/24 19:52 Dose: 150 mg Levothyroxine Sodium (Levothyroxine Sodium 150 Mcg Tablet) 150 mcg PO DAILY@0630 [facility] Last Admin: 02/16/24 05:53 Dose: 150 mcg Magnesium Hydroxide (Milk Of Magnesia 30 Ml Oral.Susp) 30 ml PO DAILY PRN PRN Reason: Constipation Memantine (Memantine Hcl 5 Mg Tablet) 5 mg PO BID [facility] Last Admin: 02/15/24 19:53 Dose: 5 mg Metformin HCl (Metformin Hcl Er 500 Mg Tab.Er.24h) 1,000 mg PO DAILY@1700 [facility] Last Admin: 02/15/24 16:25 Dose: 1,000 mg Ondansetron HCl (Ondansetron Odt 8 Mg Tab.Rapdis) 8 mg TRANSLINGU Q8H PRN PRN Reason: Nausea and Vomiting Last Admin: 12/31/23 08:39 Dose: 8 mg Sertraline HCl (Sertraline Hcl 50 Mg Tablet) 50 mg PO DAILY [facility] Last Admin: 02/15/24 08:23 Dose: 50 mg Simethicone (Simethicone 80 Mg Tab.Chew) 80 mg PO QIDWMHS PRN PRN Reason: Gas Trazodone HCl (Trazodone Hcl 50 Mg Tablet) 50 mg PO BEDTIME MRX1 PRN PRN Reason: Insomnia Last Admin: 02/14/24 20:04 Dose: 50 mg Allergies Allergies Allergy/AdvReac Type Severity Reaction Status Date / Time amoxicillin [AMOXICILLIN] Allergy Mild VOMITING/ABD Verified 09/10/23 19:44 PAIN Assessment & Plan Assessment & Plan (1) Schizoaffective disorder: Status: Acute Code(s): F25.9 - Schizoaffective disorder, unspecified (2) Hypothyroidism: Status: Acute Code(s): E03.9 - Hypothyroidism, unspecified (3) Type 2 diabetes mellitus: Status: Acute Code(s): E11.9 - Type 2 diabetes mellitus without complications (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 Plan: CV 15 minute safety checks Continue home medications: Haldol 10mg PO daily Synthroid 200mcg PO daily Obtain labs; A1C/POCs Obtain collateral from sister Obtain records from last hospitalization. MOCA Referral for [facility] services if patient is agreeable. encourage medication compliance;consider VARGAS discharge planning 09/11: Elevated fasting blood sugar elevated hemoglobin A1c 9.2 med consult placed put in point of care needed will start metformin Would benefit from clarity over recent hospitalization what this were done details regarding treatment continue Haldol unclear if patient has Healthcare proxy his [place] was low slowed cognition with poor details in depth at times during blankly regarding making judgments Unclear if any of this relates to past coma or 2 hypothyroidism. He does seem more impaired than when last seen unclear when last imaging was. Continue Haldol sitter neuro indira involvement regarding diagnostic picture. Patient does remain paranoid blunted suspicious apathetic. He might benefit from longer- term placement if available and appropriate at a later time involved H involvement would be quite helpful 09/12: cont haldol get records ? hcp ? start antidep unclear hx 09/13: Keeping to self. More talkative today. Pt concerned he will be transferred to [facility]. Pt stated, The paper I signed yesterday. Are you going to send me back to the last hospital? That place was horrible . Pt was educated he signed a release of information with Dr. Gonzalez to obtain records from [facility]. Pt was given a copy of the release he signed. Despite this, pt continues to be anxious about being transferred. Pt denies SI/HI/VH/AH. 09/14: Keeping to self. active on unit. showered. Pt reports feeling alright today; pt reports he is worried about where I'm going to go . Pt continues concerned he will be transferred to [facility]. Pt denies SI/HI/VH/AH. 09/15:Pt reports feeling alright today; pt continues to report he is worried about where I'm going to go . Responding with brief responses. Guarded. Observed standing in one place for a long period of time. Appears confused. Pt denies SI/HI/VH/AH. T/W spoke to patient's sister, Ros, with patients verbal consent. Ros reports concerns regarding patients ability to make decisions regarding his mental and physical health. She plans on contacting legal advice on obtaining guardianship of patient. 09/16:Patient's presents similar to yesterday's presentation. Responding with brief responses. Guarded. Observed standing in one place for a long period of time, when asked what he is doing, pt stated, I don't know . Pt reports he plans on contacting his sister today and try to convince her for me to stay there . Pt denies SI/HI/VH/AH. Continue current tx plan. 09/17: brief responses. Guarded. 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 Pt denies SI/HI/VH/AH. T/W and Dr. Gonzalez spoke to patient's sister, Ros. Ros stated being [facility] HCP and plans on finding document. She plans on coming to the hospital on Saturday to be present for [facility] intake. 09/21: No changes 09/22:Patient flat apathetic difficult insight and judgment his sister is healthcare proxy if needed patient is accepting medical treatment [facility] 09/23:Considers starting Haldol Decanoate patient is agreeable superficially difficulty with exec fx was seen [facility] 09/24:Pt seen in f/u mood flat dysphoric difficulty engaging in conversation preoccupied with thought he wont be living with family thing slowed apathetic no clear response with namenda ? some improvement inc lamictal start low dose sertraline inc lamictal ck tsh 09/25:Start Abilify as augmentation with Haldol see if can be more stimulating regarding depressed mood apathetic limited engagement sertraline 50 mg Lamictal 25 b.i.d. referral [facility] which would have structure unclear if patient can engage with this he remains quite depressed has delusional beliefs regarding housing and that things have been done he has repeatedly tried to reach out to his sister denies active SI needs much help dressing talking with others encouragement to eat severe thought blocking Abilify might be more stimulating than Haldol which can be more dulling 09/26:Abilify started sertraline Lamictal encouraged step-down to [facility] encourage reality orientation denies active SI 09/27: Continue current regimen and plans 09/28: Continue current regimen and plans. 09/29: Referral to [facility] increase Abilify to 5 mg daily eventually try and taper Haldol sertraline 50 mg daily 09/30:Increase Abilify to 10 mg lower Haldol to 7 mg continue sertraline and Lamictal 10/01:Abilify increased to 10 mg continue to taper Haldol sertraline 100 mg Lamictal increased to 75 mg patient apathetic withdrawn difficulty with placement some paranoia continues difficulty with decision making at times. Not physically aggressive internally preoccupied seems somewhat improved with Abilify sertraline Continue discharge planning 10/02:Patient somewhat blunted flat slowed thinking during the day times staring. Change Abilify to 10 mg at bedtime. Scheduled Haldol will lowered to 2.5 mg Continue sertraline 100 mg Namenda 5 b.i.d. 10/03:Haldol discontinued modafinil low-dose monitor for psychosis or agitation continue discharge planning 10/06: May need to firm healthcare proxy calls have been placed to sister to try to help in discharge planning. Referrals made. Patient cooperative with care 10/07:Pharmacy ordering Abilify maintain a increase modafinil 100 mg patient remains flat passive depressed some improvement noted no current paranoia noted continue discharge planning no current safe discharge plan 10/08: Increase Lamictal 100 mg Abilify Maintena 400 mg hold modafinil unclear if was overly stimulating patient continues to present internally preoccupied. 10/09:Healthcare proxy invoked discharge planning continue Lamictal Abilify pending maintain a 10/10:Healthcare proxy invoked new CV signed discharge planning. 10/11 keep same treatment 10/12 keep same treatment 10/13: Continue plan of care Lamictal Abilify discharge planning sertraline 10/14: stable. continue current mgmt. 10/15: stable. continue current mgmt. 10/16: stable presentation. continue current mgmt. 10/17: as for yesterday. 10/18: no changes. 10/19: stabel, safe. no change. 10/20: no change in presentation. calm, cooperative. active on unit, social with select peers, attending groups. Pt reports feeling alright . denies SI/HI/VH/AH. Social work waiting to hear from possible placement location. Continue current tx plan. 10/21: continue current tx plan. awaiting placement. 10/22: calm, cooperative. active on unit, social with select peers, attending groups. Pt reports feeling good ; pt stated, I'm waiting to see where I'm going . denies SI/HI/VH/AH. Showered with encouragement. 10/23: continue current tx plan. 10/24: calm, cooperative. active on unit, social with select peers, attending groups. Pt reports feeling good ; pt stated, I just want a place to live . 10/25- likely at baseline for him- CTP 10/26 CTP likely needs placement 10/27: continue current tx plan. awaiting placement. 10/28: Similar to yesterday. No change in presentation. 10/29: Pt reports feeling good ;pt stated, just waiting for a place to live . denies any issues at this time. 10/30: calm, cooperative. active on unit, social with select peers, attending groups. Pt reports feeling worried about where I am going to live . denies any issues at this time. 10/21: no change in presentation. continue current tx plan. 11/01: continue current management and treatment plan. 11/02: Continue current management and treatment plan. 11/03: Continue current management and treatment plan. 11/04: Active on unit. calm, cooperative. social with select peers, attending groups. denies any issues at this time. He reports sleeping well. Pt reports he would be interested in applying for [facility] services; social work aware. 11/05: Active on unit. calm, cooperative. social with select peers, attending groups. denies any issues at this time. Pt reports feeling okay ; he reports anxiety regarding placement. Continue current tx plan. 11/07/23 [facility] referral has appropriate concerns re living stuation cont abilify lamictal 11/08/23 Pt cooperative with care d/c planning working with cont d/c planning cont lamictal abilify 11/12/23 Patient increasingly despairing aware of no clear discharge plan periods needs cuing for much functioning limited social engaged needs help regarding diabetes and medication compliance reportedly had been rejected by multiple rest homes patient not threatening intermittently hopeless helpless very limited family contact at this time 11/13/23 pt flat depressed hopeless helpless unable to fx without structure 11/15 continue tx. 11/16 continue tx. 11/18/2023 Continue plan of care referral to [facility] TSH low will decrease levothyroxine 11/19/23 Pt flat dysphor ic inc hopeless helpless lamictal 150 hs dec levothyroxine 150 d/c planning cont 11/20/23 lamictal inc d/c planning [facility] referral 12/02/2023 Continue Lamictal Abilify patient cooperative with care gets despairing at times regarding lack of family support problematic discharge planning in relationship to finding suitable structured place to live 12/02: Social with peers. Per nursing, pt did not sleep last night. Pt reports he did not sleeping because he wasn't tired but feel okay ; ordered Ativan 1mg PO bedtime for tonight, pt aware. 12/03: In bed sleeping, pt reports he is catching up on sleep from the night before. Calm, cooperative. T/W and medical case worker, Billie, with pt to discuss possibly going to the [facility]. Pt reports he would like to call his sister and speak to her before deciding. DC Ativan. 12/04: Active on unit, social with peers. attending groups. T/W and medical case worker, Billie, met with pt to discuss discharge plan. Pt reports he doesn't know if he would want to go [place] a [place]; he states he would rather live on the street because I've done it before . Pt encouraged to consider benefits of going to a [place] with the winter months coming; he agreed to doing phone intake with social services technician on Saturday with [facility]. 12/05: Pt presents similar to yesterday. Continues to perseverate about [facility] being a [place] and not a program; He continues to agree to do phone intake on Saturday. Discussed VARGAS, pt reports he want time to consider d/t not liking needles . 12/08: Pt had phone interview with [facility], however, after multiple attempts at calling them, no one at [facility] picked up the phone to conduct interview. medical case worker to get into contact with them again. Pt denies any issues at this time. 12/09: Active on unit, social with peers. Pt denies any issues at this time. Patient agreed to receiving Abilify Maintena; risks/benefits reviewed. Waiting on placement. 12/10: Patient received Abilify Maintena yesterday. He denies any side effects. Pleasant. Waiting on placement. 12/11: continue current tx plan. 12/12: similar to days prior. waiting on placement. continue current tx plan. 12/13: appearing more depressed or demoralized. notes lots of people come and go. continue current mgmt. 12/14: same as for yesterday: find me a place to live? continue current mgmt. 12/15: out and about more. otherwise stable. continue current mgmt. 12/16: continue current tx plan. 12/17: continue current tx plan. 12/18: awaiting placement. denies any issues. 12/19: Pt reports feeling alright ; Social work continues to work on placement. Pt denies any issues at this time. Pt reports sleeping well. 12/20: Continue plan of care 12/21: Continue plan of care 12/22: continue current tx plan. 12/23: continue tx plan. 12/24: continue tx plan. 12/25: similar to days prior. waiting on placement. 12/26: Continue current tx plan. 12/27: Continue current management and treatment plan. 12/28: Continue current management and treatment plan. 12/29: In bed, tested positive for Covid. Vomited x1 per nursing. Pt reports feeling okay ; sleeping most of shift. Continue current tx plan. 12/30: Pt reports feeling okay ; continues on isolation d/t being Covid positive. Utilizing IPad. Pt reports sleeping well. denies SI/HI/VH/AH. Has not vomited today. 12/31: Pt reports feeling alright ; pt stated, I still have a stuffy nose, cough and headache but I'm starting to feel better . continues on isolation. denies other issues at this time. Continue current tx plan. 01/01: pt reports covid symptoms are improving. continues waiting on placement. 01/02: Continue tx plan. 01/05/24: no changes. 01/05: Active on unit. Pt reports feeling okay today; denies any issues at this time. pt had meeting with [facility] to be placed on list for temporary placement; pt declined. Dr. Gonzalez to speak to patient regarding this. 01/06: Discussed placement; pt reports he is thinking about saying yes to the motel . pt reports he does not believe his sister or social services technician that he has money saved in the bank. Pt believes if he left to go to the motel he would be stuck there with no money . Social work to discuss with pt. 01/07: Active on unit. social with peers. denies any issues. Pt reports feeling okay ; reports he is still thinking about where he will go after discharge. 01/08: waiting on placement. continue current tx plan. 01/09: Patient continues to wait on placement. 119: Continue current management and treatment plan. 03/13: Continue current management and treatment plan. 01/12: waiting on placement. 01/13: continue current tx plan. 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 noted on the unit to fixate on certain female peers. 01/24 continues with impaired insight/judgement- risk to others requiring inpatient and 1;01/25 given poor insight and stalking behavior continues to need inpt level of stay 02/01/24 Patient with odd affect feels safe in this setting requires structured setting given neurocognitive behavioral difficulties 02/02/24 Pt flat blunted not aggressive but can be intrusive needs help with medication and cueing 02/09/2024: Awaiting placement. Without appropriate placement, would lead to rapid decompensation and inability to care for self. Plan 1. Continue with same treatment. 2. Waiting for placement Reason for continued inpatient stay Substantial Risk for: inability to function, rapid decompensation and med/psych decompensation Time Spent With Patient Time: Total time managing care of this patient today __20__ minutes.
[2024-02-16 07:45] VITALS: BP 130/77; PULSE 68; RESP 16; TEMP 36; O2SAT 99
[2024-02-16] MEDS: Memantine HCl 5 MG TABLET PO ×2 (08:19→19:56)
[2024-02-16] MEDS: Sertraline HCL 50 MG TABLET PO (08:19)
[2024-02-16] MEDS: metFORMIN HCl ER 500 MG TAB.ER.24H 1000 MG PO (16:22)
[2024-02-16] MEDS: Insulin Glargine,Hum.rec.anlog 100 UNIT/ML 10 ML VIAL 20 UNIT SUBCUT (19:56)
[2024-02-16] MEDS: lamoTRIgine 100 MG TABLET 150 MG PO (19:56)
[2024-02-16 19:59] VITALS: BP 124/75; PULSE 83; RESP 16; TEMP 36.8; O2SAT 97
[2024-02-17] MEDS: Levothyroxine Sodium 150 MCG TABLET PO (05:39)
[2024-02-17 05:51] LABS: Glucose, Whole Blood 109 mg/dL (60-115)
[2024-02-17] MEDS: Memantine HCl 5 MG TABLET PO ×2 (08:27→20:31)
[2024-02-17] MEDS: Sertraline HCL 50 MG TABLET PO (08:27)
[2024-02-17 08:41] VITALS: BP 130/71; PULSE 71; RESP 18; TEMP 36.2; O2SAT 98
[2024-02-17] MEDS: Ondansetron ODT 8 MG TAB.RAPDIS TRANSLINGU (10:06)
--- NOTE | 2024-02-17 14:05 | HO.PSYCHPN ---
Subjective Subjective Date of Service: 02/17/24 Reason For Visit: paranoia cognitive impairment Subjective Notes: Conditional Voluntary Interim History: The nursing staff reported not cancer mental status. On interview the patient denies new symptoms, waiting for placement. Mental Status Exam Mental Status Exam Patient Appearance: Appropriate Patient Orientation: Person and Situation Level of Consciousness: Awake and Appropriate Patient Behavior: Guarded and Passive Mood Description: Withdrawn Affect Description: Constricted Patient Cognition Impaired: Yes Ability to Follow Directions: Good Speech Pattern: Clear 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: None Delusions: Not Present Thought Process: Distracted and Slowed Thinking Thought Content: positive for [place] and positive for Poverty of Content Judgement: Fair Diagnostics Vital Signs (24Hr): Vital Signs - 24 hr 02/16/24 19:59 02/17/24 08:41 Temperature 98.2 F 97.2 F Pulse Rate 83 71 Respiratory Rate 16 18 Blood Pressure 124/75 130/71 Pulse Oximetry 97 98 Oxygen Delivery Method Room Air Room Air BMI result Body Mass Index 32.5 Labs 09/10/23 20:00 02/13/24 08:44 Labs: Laboratory Results - last 48 hr 02/16/24 02/17/24 05:55 05:41 POC Glucose 102 109 Imaging Radiology Impressions: ITS Impressions Brain MRI 09/19/23 20:33 IMPRESSION: 1. No demonstrated acute intracranial abnormalities. 2. Chronic mild to moderate nonspecific white matter changes, most notably in the deep white matter of the right frontal lobe. Mild to moderate generalized cerebral volume loss. Medications Medications Current Medications Acetaminophen (Acetaminophen 325 Mg Tablet) 650 mg PO Q6H PRN PRN Reason: Headache/Pain Mild Scale (1-3) Last Admin: 01/01/24 08:45 Dose: 650 mg Al Hydroxide/Mg Hydroxide (Magnesium Hydrox/Alum Hydrox 30 Ml Oral.Susp) 30 ml PO Q6H PRN PRN Reason: Heartburn/Nausea Last Admin: 11/27/23 10:48 Dose: 30 ml Aripiprazole (Aripiprazole Er 300 Mg Suser.Syr) 300 mg IM Q28D@0900 MANAS Last Admin: 02/05/24 10:14 Dose: 300 mg Benzocaine (Throat Lozenge, Medicated Lozenge) 1 lozenge MUCOUS MEM Q2H PRN PRN Reason: Sore Throat Last Admin: 12/30/23 20:59 Dose: 1 lozenge Benztropine Mesylate (Benztropine Mesylate 0.5 Mg Tablet) 0.5 mg PO TID PRN PRN Reason: Extrapyramidal Effects Glucose (Glucose Gel 15 Gm Gel..Gram.) 15 gm PO Q15M PRN; Protocol PRN Reason: per Hypoglycemia Standing Ord. Guaifenesin/Dextromethorphan (Guaifenesin Dm 100/10/5 Ml 5 Ml Syrup) 5 ml PO Q4H PRN PRN Reason: Cough Last Admin: 01/06/24 22:48 Dose: 5 ml Hydroxyzine HCl (Hydroxyzine Hcl 25 Mg Tablet) 25 mg PO Q6H PRN PRN Reason: Anxiety Last Admin: 02/05/24 23:17 Dose: 25 mg Dextrose (D10) 250 mls @ 750 mls/hr IV Q15M PRN; Protocol PRN Reason: per Hypoglycemia Standing Ord. Insulin Glargine (Insulin Glargine,Hum.Rec.Anlog 100 Unit/Ml 10 Ml Vial) 20 unit SUBCUT BEDTIME [facility] Last Admin: 02/16/24 19:56 Dose: 20 unit Lamotrigine (Lamotrigine 100 Mg Tablet) 150 mg PO BEDTIME [facility] Last Admin: 02/16/24 19:56 Dose: 150 mg Levothyroxine Sodium (Levothyroxine Sodium 150 Mcg Tablet) 150 mcg PO DAILY@0630 [facility] Last Admin: 02/17/24 05:39 Dose: 150 mcg Magnesium Hydroxide (Milk Of Magnesia 30 Ml Oral.Susp) 30 ml PO DAILY PRN PRN Reason: Constipation Memantine (Memantine Hcl 5 Mg Tablet) 5 mg PO BID [facility] Last Admin: 02/17/24 08:27 Dose: 5 mg Metformin HCl (Metformin Hcl Er 500 Mg Tab.Er.24h) 1,000 mg PO DAILY@1700 [facility] Last Admin: 02/16/24 16:22 Dose: 1,000 mg Ondansetron HCl (Ondansetron Odt 8 Mg Tab.Rapdis) 8 mg TRANSLINGU Q8H PRN PRN Reason: Nausea and Vomiting Last Admin: 02/17/24 10:06 Dose: 8 mg Sertraline HCl (Sertraline Hcl 50 Mg Tablet) 50 mg PO DAILY [facility] Last Admin: 02/17/24 08:27 Dose: 50 mg Simethicone (Simethicone 80 Mg Tab.Chew) 80 mg PO QIDWMHS PRN PRN Reason: Gas Trazodone HCl (Trazodone Hcl 50 Mg Tablet) 50 mg PO BEDTIME MRX1 PRN PRN Reason: Insomnia Last Admin: 02/14/24 20:04 Dose: 50 mg Allergies Allergies Allergy/AdvReac Type Severity Reaction Status Date / Time amoxicillin [AMOXICILLIN] Allergy Mild VOMITING/ABD Verified 09/10/23 19:44 PAIN Assessment & Plan Assessment & Plan (1) Schizoaffective disorder: Status: Acute Code(s): F25.9 - Schizoaffective disorder, unspecified (2) Hypothyroidism: Status: Acute Code(s): E03.9 - Hypothyroidism, unspecified (3) Type 2 diabetes mellitus: Status: Acute Code(s): E11.9 - Type 2 diabetes mellitus without complications (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 on a Section 12 d/t disorganized behavior, concern for his memory impairment, medications noncompliance and poor ADLs. Plan: CV 15 minute safety checks Continue home medications: Haldol 10mg PO daily Synthroid 200mcg PO daily Obtain labs; A1C/POCs Obtain collateral from sister Obtain records from last hospitalization. MOCA Referral for [facility] services if patient is agreeable. encourage medication compliance;consider VARGAS discharge planning 09/11: Elevated fasting blood sugar elevated hemoglobin A1c 9.2 med consult placed put in point of care needed will start metformin Would benefit from clarity over recent hospitalization what this were done details regarding treatment continue Haldol unclear if patient has Healthcare proxy his [place] was low slowed cognition with poor details in depth at times during blankly regarding making judgments Unclear if any of this relates to past coma or 2 hypothyroidism. He does seem more impaired than when last seen unclear when last imaging was. Continue Haldol sitter neuro indira involvement regarding diagnostic picture. Patient does remain paranoid blunted suspicious apathetic. He might benefit from longer-term placement if available and appropriate at a later time involved [facility] involvement would be quite helpful 09/12: cont haldol get records ? hcp ? start antidep unclear hx 09/13: Keeping to self. More talkative today. Pt concerned he will be transferred to [facility]. Pt stated, The paper I signed yesterday. Are you going to send me back to the last hospital? That place was horrible . Pt was educated he signed a release of information with Dr. Gonzalez to obtain records from [facility]. Pt was given a copy of the release he signed. Despite this, pt continues to be anxious about being transferred. Pt denies SI/HI/VH/AH. 09/14: Keeping to self. active on unit. showered. Pt reports feeling alright today; pt reports he is worried about where I'm going to go . Pt continues concerned he will be transferred to [facility]. Pt denies SI/HI/VH/AH. 09/15:Pt reports feeling alright today; pt continues to report he is worried about where I'm going to go . Responding with brief responses. Guarded. Observed standing in one place for a long period of time. Appears confused. Pt denies SI/HI/VH/AH. T/W spoke to patient's sister, Ros, with patients verbal consent. Ros reports concerns regarding patients ability to make decisions regarding his mental and physical health. She plans on contacting legal advice on obtaining guardianship of patient. 09/16:Patient's presents similar to yesterday's presentation. Responding with brief responses. Guarded. Observed standing in one place for a long period of time, when asked what he is doing, pt stated, I don't know . Pt reports he plans on contacting his sister today and try to convince her for me to stay there . Pt denies SI/HI/VH/AH. Continue current tx plan. 09/17: brief responses. Guarded. 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 Pt denies SI/HI/VH/AH. T/W and Dr. Gonzalez spoke to patient's sister, Ros. Ros stated being [facility] HCP and plans on finding document. She plans on coming to the hospital on Saturday to be present for [facility] intake. 09/21: No changes 09/22:Patient flat apathetic difficult insight and judgment his sister is healthcare proxy if needed patient is accepting medical treatment Referral to [facility] 09/23:Considers starting Haldol Dec[place] patient is agreeable superficially difficulty with exec fx was seen [facility] 09/24:Pt seen in f/u mood flat dysphoric difficulty engaging in conversation preoccupied with thought he wont be living with family thing slowed apathetic no clear response with namenda ? some improvement inc lamictal start low dose sertraline inc lamictal ck tsh 09/25:Start Abilify as augmentation with Haldol see if can be more stimulating regarding depressed mood apathetic limited engagement sertraline 50 mg Lamictal 25 b.i.d. referral to [facility] which would have structure unclear if patient can engage with this he remains quite depressed has delusional beliefs regarding housing and that things have been done he has repeatedly tried to reach out to his sister denies active SI needs much help dressing talking with others encouragement to eat severe thought blocking Abilify might be more stimulating than Haldol which can be more dulling 09/26:Abilify started sertraline Lamictal encouraged step-down to [facility] Salty encourage reality orientation denies active SI 09/27: Continue current regimen and plans 09/28: Continue current regimen and plans. 09/29: Referral to [facility] increase Abilify to 5 mg daily eventually try and taper Haldol sertraline 50 mg daily 09/30:Increase Abilify to 10 mg lower Haldol to 7 mg continue sertraline and Lamictal 10/01:Abilify increased to 10 mg continue to taper Haldol sertraline 100 mg Lamictal increased to 75 mg patient apathetic withdrawn difficulty with placement some paranoia continues difficulty with decision making at times. Not physically aggressive internally preoccupied seems somewhat improved with Abilify sertraline Continue discharge planning 10/02:Patient somewhat blunted flat slowed thinking during the day times staring. Change Abilify to 10 mg at bedtime. Scheduled Haldol will lowered to 2.5 mg Continue sertraline 100 mg Namenda 5 b.i.d. 10/03:Haldol discontinued modafinil low-dose monitor for psychosis or agitation continue discharge planning 10/06: May need to firm healthcare proxy calls have been placed to sister to try to help in discharge planning. Referrals made. Patient cooperative with care 10/07:Pharmacy ordering Abilify maintain a increase modafinil 100 mg patient remains flat passive depressed some improvement noted no current paranoia noted continue discharge planning no current safe discharge plan 10/08: Increase Lamictal 100 mg Abilify Maintena 400 mg hold modafinil unclear if was overly stimulating patient continues to present internally preoccupied. 10/09:Healthcare proxy invoked discharge planning continue Lamictal Abilify pending maintain a 10/10:Healthcare proxy invoked new CV signed discharge planning. 10/11 keep same treatment 10/12 keep same treatment 10/13: Continue plan of care Lamictal Abilify discharge planning sertraline 10/14: stable. continue current mgmt. 10/15: stable. continue current mgmt. 10/16: stable presentation. continue current mgmt. 10/17: as for yesterday. 10/18: no changes. 10/19: stabel, safe. no change. 10/20: no change in presentation. calm, cooperative. active on unit, social with select peers, attending groups. Pt reports feeling alright . denies SI/HI/VH/AH. Social work waiting to hear from possible placement location. Continue current tx plan. 10/21: continue current tx plan. awaiting placement. 10/22: calm, cooperative. active on unit, social with select peers, attending groups. Pt reports feeling good ; pt stated, I'm waiting to see where I'm going . denies SI/HI/VH/AH. Showered with encouragement. 10/23: continue current tx plan. 10/24: calm, cooperative. active on unit, social with select peers, attending groups. Pt reports feeling good ; pt stated, I just want a place to live . 10/25- likely at baseline for him- CTP 10/26 CTP likely needs placement 10/27: continue current tx plan. awaiting placement. 10/28: Similar to yesterday. No change in presentation. 10/29: Pt reports feeling good ;pt stated, just waiting for a place to live . denies any issues at this time. 10/30: calm, cooperative. active on unit, social with select peers, attending groups. Pt reports feeling worried about where I am going to live . denies any issues at this time. 10/21: no change in presentation. continue current tx plan. 11/01: continue current management and treatment plan. 11/02: Continue current management and treatment plan. 11/03: Continue current management and treatment plan. 11/04: Active on unit. calm, cooperative. social with select peers, attending groups. denies any issues at this time. He reports sleeping well. Pt reports he would be interested in applying for [facility] services; social work aware. 11/05: Active on unit. calm, cooperative. social with select peers, attending groups. denies any issues at this time. Pt reports feeling okay ; he reports anxiety regarding placement. Continue current tx plan. 11/07/23 [facility] referral has appropriate concerns re living stuation cont abilify lamictal 11/08/23 Pt cooperative with care d/c planning working with cont d/c planning cont lamictal abilify 11/12/23 Patient increasingly despairing aware of no clear discharge plan periods needs cuing for much functioning limited social engaged needs help regarding diabetes and medication compliance reportedly had been rejected by multiple rest homes patient not threatening intermittently hopeless helpless very limited family contact at this time 11/13/23 pt flat depressed hopeless helpless unable to fx without structure 11/15 continue tx. 11/16 continue tx. 11/18/2023 Continue plan of care referral to [facility] TSH low will decrease levothyroxine 11/19/23 Pt flat dysphor ic inc hopeless helpless lamictal 150 hs dec levothyroxine 150 d/c planning cont 11/20/23 lamictal inc d/c planning dmh referral 12/02/2023 Continue Lamictal Abilify patient cooperative with care gets despairing at times regarding lack of family support problematic discharge planning in relationship to finding suitable structured place to live 12/02: Social with peers. Per nursing, pt did not sleep last night. Pt reports he did not sleeping because he wasn't tired but feel okay ; ordered Ativan 1mg PO bedtime for tonight, pt aware. 12/03: In bed sleeping, pt reports he is catching up on sleep from the night before. Calm, cooperative. T/W and hold worker, Blilie, with pt to discuss possibly going to the [facility]. Pt reports he would like to call his sister and speak to her before deciding. DC Ativan. 12/04: Active on unit, social with peers. attending groups. T/W and hold worker, Billie, met with pt to discuss discharge plan. Pt reports he doesn't know if he would want to go to a homeless custodial; he states he would rather live on the street because I've done it before . Pt encouraged to consider benefits of going to a custodial with the winter months coming; he agreed to doing phone intake with social security assessor on Saturday with [facility]. 12/05: Pt presents similar to yesterday. Continues to perseverate about [facility] being a custodial and not a program; He continues to agree to do phone intake on Saturday. Discussed VARGAS, pt reports he want time to consider d/t not liking needles . 12/08: Pt had phone interview with [facility], however, after multiple attempts at calling them, no one at [facility] picked up the phone to conduct interview. hold worker to get into contact with them again. Pt denies any issues at this time. 12/09: Active on unit, social with peers. Pt denies any issues at this time. Patient agreed to receiving Abilify Maintena; risks/benefits reviewed. Waiting on placement. 12/10: Patient received Abilify Maintena yesterday. He denies any side effects. Pleasant. Waiting on placement. 12/11: continue current tx plan. 12/12: similar to days prior. waiting on placement. continue current tx plan. 12/13: appearing more depressed or demoralized. notes lots of people come and go. continue current mgmt. 12/14: same as for yesterday: find me a place to live? continue current mgmt. 12/15: out and about more. otherwise stable. continue current mgmt. 12/16: continue current tx plan. 12/17: continue current tx plan. 12/18: awaiting placement. denies any issues. 12/19: Pt reports feeling alright ; Social work continues to work on placement. Pt denies any issues at this time. Pt reports sleeping well. 12/20: Continue plan of care 12/21: Continue plan of care 12/22: continue current tx plan. 12/23: continue tx plan. 12/24: continue tx plan. 12/25: similar to days prior. waiting on placement. 12/26: Continue current tx plan. 12/27: Continue current management and treatment plan. 12/28: Continue current management and treatment plan. 12/29: In bed, tested positive for Covid. Vomited x1 per nursing. Pt reports feeling okay ; sleeping most of shift. Continue current tx plan. 12/30: Pt reports feeling okay ; continues on isolation d/t being Covid positive. Utilizing IPad. Pt reports sleeping well. denies SI/HI/VH/AH. Has not vomited today. 12/31: Pt reports feeling alright ; pt stated, I still have a stuffy nose, cough and headache but I'm starting to feel better . continues on isolation. denies other issues at this time. Continue current tx plan. 01/01: pt reports covid symptoms are improving. continues waiting on placement. 01/02: Continue tx plan. 01/05/24: no changes. 01/05: Active on unit. Pt reports feeling okay today; denies any issues at this time. pt had meeting with [facility] to be placed on list for temporary placement; pt declined. Dr. Gonzalez to speak to patient regarding this. 01/06: Discussed placement; pt reports he is thinking about saying yes to the motel . pt reports he does not believe his sister or social security assessor that he has money saved in the bank. Pt believes if he left to go to the motel he would be stuck there with no money . Social work to discuss with pt. 01/07: Active on unit. social with peers. denies any issues. Pt reports feeling okay ; reports he is still thinking about where he will go after discharge. 01/08: waiting on placement. continue current tx plan. 01/09: Patient continues to wait on placement. 119: Continue current management and treatment plan. 03/13: Continue current management and treatment plan. 01/12: waiting on placement. 01/13: continue current tx plan. 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 noted on the unit to fixate on certain female peers. 01/24 continues with impaired insight/judgement- risk to others requiring inpatient and 01/25 given poor insight and stalking behavior continues to need inpt level of stay 02/01/24 Patient with odd affect feels safe in this setting requires structured setting given neurocognitive behavioral difficulties 02/02/24 Pt flat blunted not aggressive but can be intrusive needs help with medication and cueing 02/09/2024: Awaiting placement. Without appropriate placement, would lead to rapid decompensation and inability to care for self. Plan 1. Continue with same treatment. 2. Waiting for placement Reason for continued inpatient stay Substantial Risk for: inability to function, rapid decompensation and med/psych decompensation Time Spent With Patient Time: Total time managing care of this patient today __20__ minutes.
[2024-02-17] MEDS: metFORMIN HCl ER 500 MG TAB.ER.24H 1000 MG PO (16:49)
[2024-02-17 20:00] VITALS: BP 119/69; PULSE 77; RESP 16; TEMP 36.4; O2SAT 94
[2024-02-17] MEDS: Insulin Glargine,Hum.rec.anlog 100 UNIT/ML 10 ML VIAL 20 UNIT SUBCUT (20:29)
[2024-02-17] MEDS: lamoTRIgine 100 MG TABLET 150 MG PO (20:30)
[2024-02-17] MEDS: traZODone HCL 50 MG TABLET PO (20:33)
[2024-02-18] MEDS: Levothyroxine Sodium 150 MCG TABLET PO (06:17)
[2024-02-18 06:24] LABS: Glucose, Whole Blood 117 mg/dL (60-115)
[2024-02-18 08:00] VITALS: BP 123/69; PULSE 74; RESP 16; TEMP 36; O2SAT 96
[2024-02-18] MEDS: Sertraline HCL 50 MG TABLET PO (08:14)
[2024-02-18] MEDS: Memantine HCl 5 MG TABLET PO ×2 (08:15→20:23)
[2024-02-18] MEDS: metFORMIN HCl ER 500 MG TAB.ER.24H 1000 MG PO (16:18)
--- NOTE | 2024-02-18 16:31 | P.PNPSI_ITS ---
Subjective Subjective Date of Service: 02/18/24 Reason For Visit: crisis Subjective Notes: Conditional Voluntary Interim History: The nursing staff reported the patient had been compliant with treatment, no changes in mental status. On interview the patient denies new symptoms. Mental Status Exam Mental Status Exam Patient Appearance: Appropriate Patient Orientation: Person and Situation Level of Consciousness: Awake Patient Behavior: Guarded and Passive Mood Description: Withdrawn Affect Description: Constricted Patient Cognition Impaired: Yes Ability to Follow Directions: Good Speech Pattern: Clear 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: None Delusions: Paranoid Ideation and Ideas of Reference Thought Process: Distracted and Slowed Thinking Thought Content: positive for [place] and positive for Poverty of Content Judgement: Fair Diagnostics Vital Signs (24Hr): Vital Signs - 24 hr 02/17/24 20:00 02/18/24 08:00 Temperature 97.5 F 96.8 F Pulse Rate 77 74 Respiratory Rate 16 16 Blood Pressure 119/69 123/69 Pulse Oximetry 94 96 Oxygen Delivery Method Room Air Room Air BMI result Body Mass Index 32.5 Labs 09/10/23 20:00 02/13/24 08:44 Labs: Laboratory Results - last 48 hr 02/17/24 02/18/24 05:41 06:18 POC Glucose 109 117 H Imaging Radiology Impressions: ITS Impressions Brain MRI 09/19/23 20:33 IMPRESSION: 1. No demonstrated acute intracranial abnormalities. 2. Chronic mild to moderate nonspecific white matter changes, most notably in the deep white matter of the right frontal lobe. Mild to moderate generalized cerebral volume loss. Medications Medications Current Medications Acetaminophen (Acetaminophen 325 Mg Tablet) 650 mg PO Q6H PRN PRN Reason: Headache/Pain Mild Scale (1-3) Last Admin: 01/01/24 08:45 Dose: 650 mg Al Hydroxide/Mg Hydroxide (Magnesium Hydrox/Alum Hydrox 30 Ml Oral.Susp) 30 ml PO Q6H PRN PRN Reason: Heartburn/Nausea Last Admin: 11/27/23 10:48 Dose: 30 ml Aripiprazole (Aripiprazole Er 300 Mg Suser.Syr) 300 mg IM Q28D@0900 MANAS Last Admin: 02/05/24 10:14 Dose: 300 mg Benzocaine (Throat Lozenge, Medicated Lozenge) 1 lozenge MUCOUS MEM Q2H PRN PRN Reason: Sore Throat Last Admin: 12/30/23 20:59 Dose: 1 lozenge Benztropine Mesylate (Benztropine Mesylate 0.5 Mg Tablet) 0.5 mg PO TID PRN PRN Reason: Extrapyramidal Effects Glucose (Glucose Gel 15 Gm Gel..Gram.) 15 gm PO Q15M PRN; Protocol PRN Reason: per Hypoglycemia Standing Ord. Guaifenesin/Dextromethorphan (Guaifenesin Dm 100/10/5 Ml 5 Ml Syrup) 5 ml PO Q4H PRN PRN Reason: Cough Last Admin: 01/06/24 22:48 Dose: 5 ml Hydroxyzine HCl (Hydroxyzine Hcl 25 Mg Tablet) 25 mg PO Q6H PRN PRN Reason: Anxiety Last Admin: 02/05/24 23:17 Dose: 25 mg Dextrose (D10) 250 mls @ 750 mls/hr IV Q15M PRN; Protocol PRN Reason: per Hypoglycemia Standing Ord. Insulin Glargine (Insulin Glargine,Hum.Rec.Anlog 100 Unit/Ml 10 Ml Vial) 20 unit SUBCUT BEDTIME [facility] Last Admin: 02/17/24 20:29 Dose: 20 unit Lamotrigine (Lamotrigine 100 Mg Tablet) 150 mg PO BEDTIME [facility] Last Admin: 02/17/24 20:30 Dose: 150 mg Levothyroxine Sodium (Levothyroxine Sodium 150 Mcg Tablet) 150 mcg PO DAILY@0630 [facility] Last Admin: 02/18/24 06:17 Dose: 150 mcg Magnesium Hydroxide (Milk Of Magnesia 30 Ml Oral.Susp) 30 ml PO DAILY PRN PRN Reason: Constipation Memantine (Memantine Hcl 5 Mg Tablet) 5 mg PO BID [facility] Last Admin: 02/18/24 08:15 Dose: 5 mg Metformin HCl (Metformin Hcl Er 500 Mg Tab.Er.24h) 1,000 mg PO DAILY@1700 [facility] Last Admin: 02/18/24 16:18 Dose: 1,000 mg Ondansetron HCl (Ondansetron Odt 8 Mg Tab.Rapdis) 8 mg TRANSLINGU Q8H PRN PRN Reason: Nausea and Vomiting Last Admin: 02/17/24 10:06 Dose: 8 mg Sertraline HCl (Sertraline Hcl 50 Mg Tablet) 50 mg PO DAILY [facility] Last Admin: 02/18/24 08:14 Dose: 50 mg Simethicone (Simethicone 80 Mg Tab.Chew) 80 mg PO QIDWMHS PRN PRN Reason: Gas Trazodone HCl (Trazodone Hcl 50 Mg Tablet) 50 mg PO BEDTIME MRX1 PRN PRN Reason: Insomnia Last Admin: 02/17/24 20:33 Dose: 50 mg Allergies Allergies Allergy/AdvReac Type Severity Reaction Status Date / Time amoxicillin [AMOXICILLIN] Allergy Mild VOMITING/ABD Verified 09/10/23 19:44 PAIN Assessment & Plan Assessment & Plan (1) Schizoaffective disorder: Status: Acute Code(s): F25.9 - Schizoaffective disorder, unspecified (2) Hypothyroidism: Status: Acute Code(s): E03.9 - Hypothyroidism, unspecified (3) Type 2 diabetes mellitus: Status: Acute Code(s): E11.9 - Type 2 diabetes mellitus without complications (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 Plan: CV 15 minute safety checks Continue home medications: Haldol 10mg PO daily Synthroid 200mcg PO daily Obtain labs; A1C/POCs Obtain collateral from sister Obtain records from last hospitalization. MOCA Referral for [facility] services if patient is agreeable. encourage medication compliance;consider VARGAS discharge planning 09/11: Elevated fasting blood sugar elevated hemoglobin A1c 9.2 med consult placed put in point of care needed will start metformin Would benefit from clarity over recent hospitalization what this were done details regarding treatment continue Haldol unclear if patient has Healthcare proxy his [place] was low slowed cognition with poor details in depth at times during blankly regarding making judgments Unclear if any of this relates to past coma or 2 hypothyroidism. He does seem more impaired than when last seen unclear when last imaging was. Continue Haldol sitter neuro indira involvement regarding diagnostic picture. Patient does remain paranoid blunted suspicious apathetic. He might benefit from longer- term placement if available and appropriate at a later time involved [facility] involvement would be quite helpful 09/12: cont haldol get records ? hcp ? start antidep unclear hx 09/13: Keeping to self. More talkative today. Pt concerned he will be transferred to [facility]. Pt stated, The paper I signed yesterday. Are you going to send me back to the last hospital? That place was horrible . Pt was educated he signed a release of information with Dr. Gonzalez to obtain records from [facility]. Pt was given a copy of the release he signed. Despite this, pt continues to be anxious about being transferred. Pt denies SI/HI/VH/AH. 09/14: Keeping to self. active on unit. showered. Pt reports feeling alright today; pt reports he is worried about where I'm going to go . Pt continues concerned he will be transferred to [facility]. Pt denies SI/HI/VH/AH. 09/15:Pt reports feeling alright today; pt continues to report he is worried about where I'm going to go . Responding with brief responses. Guarded. Observed standing in one place for a long period of time. Appears confused. Pt denies SI/HI/VH/AH. T/W spoke to patient's sister, Ros, with patients verbal consent. Ros reports concerns regarding patients ability to make decisions regarding his mental and physical health. She plans on contacting legal advice on obtaining guardianship of patient. 09/16:Patient's presents similar to yesterday's presentation. Responding with brief responses. Guarded. Observed standing in one place for a long period of time, when asked what he is doing, pt stated, I don't know . Pt reports he plans on contacting his sister today and try to convince her for me to stay there . Pt denies SI/HI/VH/AH. Continue current tx plan. 09/17: brief responses. Guarded. 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 Pt denies SI/HI/VH/AH. T/W and Dr. Gonzalez spoke to patient's sister, Ros. Ros stated being [facility] HCP and plans on finding document. She plans on coming to the hospital on Saturday to be present for [facility] intake. 09/21: No changes 09/22:Patient flat apathetic difficult insight and judgment his sister is healthcare proxy if needed patient is accepting medical treatment Referral to [facility] 09/23:Considers starting Haldol Decanoate patient is agreeable superficially difficulty with exec fx was seen [facility] 09/24:Pt seen in f/u mood flat dysphoric difficulty engaging in conversation preoccupied with thought he wont be living with family thing slowed apathetic no clear response with namenda ? some improvement inc lamictal start low dose sertraline inc lamictal ck tsh 09/25:Start Abilify as augmentation with Haldol see if can be more stimulating regarding depressed mood apathetic limited engagement sertraline 50 mg Lamictal 25 b.i.d. referral [facility] unclear if patient can engage with this he remains quite depressed has delusional beliefs regarding housing and that things have been done he has repeatedly tried to reach out to his sister denies active SI needs much help dressing talking with others encouragement to eat severe thought blocking Abilify might be more stimulating than Haldol which can be more dulling 09/26:Abilify started sertraline Lamictal encouraged step-down to [facility] encourage reality orientation denies active SI 09/27: Continue current regimen and plans 09/28: Continue current regimen and plans. 09/29: Referral to [facility] increase Abilify to 5 mg daily eventually try and taper Haldol sertraline 50 mg daily 09/30:Increase Abilify to 10 mg lower Haldol to 7 mg continue sertraline and Lamictal 10/01:Abilify increased to 10 mg continue to taper Haldol sertraline 100 mg Lamictal increased to 75 mg patient apathetic withdrawn difficulty with placement some paranoia continues difficulty with decision making at times. Not physically aggressive internally preoccupied seems somewhat improved with Abilify sertraline Continue discharge planning 10/02:Patient somewhat blunted flat slowed thinking during the day times staring. Change Abilify to 10 mg at bedtime. Scheduled Haldol will lowered to 2.5 mg Continue sertraline 100 mg Namenda 5 b.i.d. 10/03:Haldol discontinued modafinil low-dose monitor for psychosis or agitation continue discharge planning 10/06: May need to firm healthcare proxy calls have been placed to sister to try to help in discharge planning. Referrals made. Patient cooperative with care 10/07:Pharmacy ordering Abilify maintain a increase modafinil 100 mg patient remains flat passive depressed some improvement noted no current paranoia noted continue discharge planning no current safe discharge plan 10/08: Increase Lamictal 100 mg Abilify Maintena 400 mg hold modafinil unclear if was overly stimulating patient continues to present internally preoccupied. 10/09:Healthcare proxy invoked discharge planning continue Lamictal Abilify pending maintain a 10/10:Healthcare proxy invoked new CV signed discharge planning. 10/11 keep same treatment 10/12 keep same treatment 10/13: Continue plan of care Lamictal Abilify discharge planning sertraline 10/14: stable. continue current mgmt. 10/15: stable. continue current mgmt. 10/16: stable presentation. continue current mgmt. 10/17: as for yesterday. 10/18: no changes. 10/19: stabel, safe. no change. 10/20: no change in presentation. calm, cooperative. active on unit, social with select peers, attending groups. Pt reports feeling alright . denies SI/HI/VH/AH. Social work waiting to hear from possible placement location. Continue current tx plan. 10/21: continue current tx plan. awaiting placement. 10/22: calm, cooperative. active on unit, social with select peers, attending groups. Pt reports feeling good ; pt stated, I'm waiting to see where I'm going . denies SI/HI/VH/AH. Showered with encouragement. 10/23: continue current tx plan. 10/24: calm, cooperative. active on unit, social with select peers, attending groups. Pt reports feeling good ; pt stated, I just want a place to live . 10/25- likely at baseline for him- CTP 10/26 CTP likely needs placement 10/27: continue current tx plan. awaiting placement. 10/28: Similar to yesterday. No change in presentation. 10/29: Pt reports feeling good ;pt stated, just waiting for a place to live . denies any issues at this time. 10/30: calm, cooperative. active on unit, social with select peers, attending groups. Pt reports feeling worried about where I am going to live . denies any issues at this time. 10/21: no change in presentation. continue current tx plan. 11/01: continue current management and treatment plan. 11/02: Continue current management and treatment plan. 11/03: Continue current management and treatment plan. 11/04: Active on unit. calm, cooperative. social with select peers, attending groups. denies any issues at this time. He reports sleeping well. Pt reports he would be interested in applying for [facility] services; social work aware. 11/05: Active on unit. calm, cooperative. social with select peers, attending groups. denies any issues at this time. Pt reports feeling okay ; he reports anxiety regarding placement. Continue current tx plan. 11/07/23 [facility] referral has appropriate concerns re living stuation cont abilify lamictal 11/08/23 Pt cooperative with care d/c planning working with cont d/c planning cont lamictal abilify 11/12/23 Patient increasingly despairing aware of no clear discharge plan periods needs cuing for much functioning limited social engaged needs help regarding diabetes and medication compliance reportedly had been rejected by multiple rest homes patient not threatening intermittently hopeless helpless very limited family contact at this time 11/13/23 pt flat depressed hopeless helpless unable to fx without structure 11/15 continue tx. 11/16 continue tx. 11/18/2023 Continue plan of care referral to [facility] TSH low will decrease levothyroxine 11/19/23 Pt flat dysphor ic inc hopeless helpless lamictal 150 hs dec levothyroxine 150 d/c planning cont 11/20/23 lamictal inc d/c planning [facility] referral 12/02/2023 Continue Lamictal Abilify patient cooperative with care gets despairing at times regarding lack of family support problematic discharge planning in relationship to finding suitable structured place to live 12/02: Social with peers. Per nursing, pt did not sleep last night. Pt reports he did not sleeping because he wasn't tired but feel okay ; ordered Ativan 1mg PO bedtime for tonight, pt aware. 12/03: In bed sleeping, pt reports he is catching up on sleep from the night before. Calm, cooperative. T/W and dairy machine operator farmworker, Billie, with pt to discuss possibly going to the [facility]. Pt reports he would like to call his sister and speak to her before deciding. DC Ativan. 12/04: Active on unit, social with peers. attending groups. T/W and dairy machine operator farmworker, Billie, met with pt to discuss discharge plan. Pt reports he doesn't know if he would want to go to a homeless nursing home; he states he would rather live on the street because I've done it before . Pt encouraged to consider benefits of going to a nursing home with the winter months coming; he agreed to doing phone intake with director social service on Saturday with [facility]. 12/05: Pt presents similar to yesterday. Continues to perseverate about [facility] being a nursing home and not a program; He continues to agree to do phone intake on Saturday. Discussed VARGAS, pt reports he want time to consider d/t not liking needles . 12/08: Pt had phone interview with [facility], however, after multiple attempts at calling them, no one at [facility] picked up the phone to conduct interview. dairy machine operator farmworker to get into contact with them again. Pt denies any issues at this time. 12/09: Active on unit, social with peers. Pt denies any issues at this time. Patient agreed to receiving Abilify Maintena; risks/benefits reviewed. Waiting on placement. 12/10: Patient received Abilify Maintena yesterday. He denies any side effects. Pleasant. Waiting on placement. 12/11: continue current tx plan. 12/12: similar to days prior. waiting on placement. continue current tx plan. 12/13: appearing more depressed or demoralized. notes lots of people come and go. continue current mgmt. 12/14: same as for yesterday: find me a place to live? continue current mgmt. 12/15: out and about more. otherwise stable. continue current mgmt. 12/16: continue current tx plan. 12/17: continue current tx plan. 12/18: awaiting placement. denies any issues. 12/19: Pt reports feeling alright ; Social work continues to work on placement. Pt denies any issues at this time. Pt reports sleeping well. 12/20: Continue plan of care 12/21: Continue plan of care 12/22: continue current tx plan. 12/23: continue tx plan. 12/24: continue tx plan. 12/25: similar to days prior. waiting on placement. 12/26: Continue current tx plan. 12/27: Continue current management and treatment plan. 12/28: Continue current management and treatment plan. 12/29: In bed, tested positive for Covid. Vomited x1 per nursing. Pt reports feeling okay ; sleeping most of shift. Continue current tx plan. 12/30: Pt reports feeling okay ; continues on isolation d/t being Covid positive. Utilizing IPad. Pt reports sleeping well. denies SI/HI/VH/AH. Has not vomited today. 12/31: Pt reports feeling alright ; pt stated, I still have a stuffy nose, cough and headache but I'm starting to feel better . continues on isolation. denies other issues at this time. Continue current tx plan. 01/01: pt reports covid symptoms are improving. continues waiting on placement. 01/02: Continue tx plan. 01/05/24: no changes. 01/05: Active on unit. Pt reports feeling okay today; denies any issues at this time. pt had meeting with [facility] to be placed on list for temporary placement; pt declined. Dr. Gonzalez to speak to patient regarding this. 01/06: Discussed placement; pt reports he is thinking about saying yes to the motel . pt reports he does not believe his sister or director social service that he has money saved in the bank. Pt believes if he left to go to the motel he would be stuck there with no money . Social work to discuss with pt. 01/07: Active on unit. social with peers. denies any issues. Pt reports feeling okay ; reports he is still thinking about where he will go after discharge. 01/08: waiting on placement. continue current tx plan. 01/09: Patient continues to wait on placement. 119: Continue current management and treatment plan. 03/13: Continue current management and treatment plan. 01/12: waiting on placement. 01/13: continue current tx plan. 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 noted on the unit to fixate on certain female peers. 01/24 continues with impaired insight/judgement- risk to others requiring inpatient and 01/25 given poor insight and stalking behavior continues to need inpt level of stay 02/01/24 Patient with odd affect feels safe in this setting requires structured setting given neurocognitive behavioral difficulties 02/02/24 Pt flat blunted not aggressive but can be intrusive needs help with medication and cueing 02/09/2024: Awaiting placement. Without appropriate placement, would lead to rapid decompensation and inability to care for self. Plan 1. Continue with same treatment. 2. Waiting for placement Reason for continued inpatient stay Substantial Risk for: inability to function, rapid decompensation and med/psych decompensation Time Spent With Patient Time: Total time managing care of this patient today __20__ minutes.
[2024-02-18 20:00] VITALS: BP 121/71; PULSE 90; RESP 16; TEMP 36.2; O2SAT 96
[2024-02-18] MEDS: Insulin Glargine,Hum.rec.anlog 100 UNIT/ML 10 ML VIAL 20 UNIT SUBCUT (20:22)
[2024-02-18] MEDS: lamoTRIgine 100 MG TABLET 150 MG PO (20:23)
[2024-02-18] MEDS: traZODone HCL 50 MG TABLET PO (20:24)
[2024-02-19] MEDS: Levothyroxine Sodium 150 MCG TABLET PO (06:02)
[2024-02-19 06:41] LABS: Glucose, Whole Blood 114 mg/dL (60-115)
[2024-02-19 08:08] VITALS: BP 112/70; PULSE 73; RESP 17; TEMP 36.3; O2SAT 96
[2024-02-19] MEDS: Sertraline HCL 50 MG TABLET PO (08:10)
[2024-02-19] MEDS: Memantine HCl 5 MG TABLET PO ×2 (08:10→20:37)
--- NOTE | 2024-02-19 13:38 | HO.PSYCHPN ---
Subjective Subjective Date of Service: 02/19/24 Reason For Visit: crisis Subjective Notes: Conditional Voluntary Interim History: The nursing staff reported the patient had been compliant with treatment no changes in his mental status. On interview the patient denies new symptoms, waiting for placement. Mental Status Exam Mental Status Exam Patient Appearance: Appropriate Patient Orientation: Person and Situation Level of Consciousness: Awake and Appropriate Patient Behavior: Guarded and Passive Mood Description: Withdrawn Affect Description: Constricted Patient Cognition Impaired: Yes Ability to Follow Directions: Good Speech Pattern: Clear 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: None Delusions: Paranoid Ideation and Ideas of Reference Thought Process: Distracted and Slowed Thinking Thought Content: positive for [place] and positive for Poverty of Content Judgement: Fair Diagnostics Vital Signs (24Hr): Vital Signs - 24 hr 02/18/24 20:00 02/19/24 08:08 Temperature 97.1 F 97.4 F Pulse Rate 90 73 Respiratory Rate 16 17 Blood Pressure 121/71 112/70 Pulse Oximetry 96 96 Oxygen Delivery Method Room Air Room Air BMI result Body Mass Index 32.5 Labs 09/10/23 20:00 02/13/24 08:44 Labs: Laboratory Results - last 48 hr 02/18/24 02/19/24 06:18 06:23 POC Glucose 117 H 114 Imaging Radiology Impressions: ITS Impressions Brain MRI 09/19/23 20:33 IMPRESSION: 1. No demonstrated acute intracranial abnormalities. 2. Chronic mild to moderate nonspecific white matter changes, most notably in the deep white matter of the right frontal lobe. Mild to moderate generalized cerebral volume loss. Medications Medications Current Medications Acetaminophen (Acetaminophen 325 Mg Tablet) 650 mg PO Q6H PRN PRN Reason: Headache/Pain Mild Scale (1-3) Last Admin: 01/01/24 08:45 Dose: 650 mg Al Hydroxide/Mg Hydroxide (Magnesium Hydrox/Alum Hydrox 30 Ml Oral.Susp) 30 ml PO Q6H PRN PRN Reason: Heartburn/Nausea Last Admin: 11/27/23 10:48 Dose: 30 ml Aripiprazole (Aripiprazole Er 300 Mg Suser.Syr) 300 mg IM Q28D@0900 MANAS Last Admin: 02/05/24 10:14 Dose: 300 mg Benzocaine (Throat Lozenge, Medicated Lozenge) 1 lozenge MUCOUS MEM Q2H PRN PRN Reason: Sore Throat Last Admin: 12/30/23 20:59 Dose: 1 lozenge Benztropine Mesylate (Benztropine Mesylate 0.5 Mg Tablet) 0.5 mg PO TID PRN PRN Reason: Extrapyramidal Effects Glucose (Glucose Gel 15 Gm Gel..Gram.) 15 gm PO Q15M PRN; Protocol PRN Reason: per Hypoglycemia Standing Ord. Guaifenesin/Dextromethorphan (Guaifenesin Dm 100/10/5 Ml 5 Ml Syrup) 5 ml PO Q4H PRN PRN Reason: Cough Last Admin: 01/06/24 22:48 Dose: 5 ml Hydroxyzine HCl (Hydroxyzine Hcl 25 Mg Tablet) 25 mg PO Q6H PRN PRN Reason: Anxiety Last Admin: 02/05/24 23:17 Dose: 25 mg Dextrose (D10) 250 mls @ 750 mls/hr IV Q15M PRN; Protocol PRN Reason: per Hypoglycemia Standing Ord. Insulin Glargine (Insulin Glargine,Hum.Rec.Anlog 100 Unit/Ml 10 Ml Vial) 20 unit SUBCUT BEDTIME [facility] Last Admin: 02/18/24 20:22 Dose: 20 unit Lamotrigine (Lamotrigine 100 Mg Tablet) 150 mg PO BEDTIME [facility] Last Admin: 02/18/24 20:23 Dose: 150 mg Levothyroxine Sodium (Levothyroxine Sodium 150 Mcg Tablet) 150 mcg PO DAILY@0630 [facility] Last Admin: 02/19/24 06:02 Dose: 150 mcg Magnesium Hydroxide (Milk Of Magnesia 30 Ml Oral.Susp) 30 ml PO DAILY PRN PRN Reason: Constipation Memantine (Memantine Hcl 5 Mg Tablet) 5 mg PO BID [facility] Last Admin: 02/19/24 08:10 Dose: 5 mg Metformin HCl (Metformin Hcl Er 500 Mg Tab.Er.24h) 1,000 mg PO DAILY@1700 [facility] Last Admin: 02/18/24 16:18 Dose: 1,000 mg Ondansetron HCl (Ondansetron Odt 8 Mg Tab.Rapdis) 8 mg TRANSLINGU Q8H PRN PRN Reason: Nausea and Vomiting Last Admin: 02/17/24 10:06 Dose: 8 mg Sertraline HCl (Sertraline Hcl 50 Mg Tablet) 50 mg PO DAILY [facility] Last Admin: 02/19/24 08:10 Dose: 50 mg Simethicone (Simethicone 80 Mg Tab.Chew) 80 mg PO QIDWMHS PRN PRN Reason: Gas Trazodone HCl (Trazodone Hcl 50 Mg Tablet) 50 mg PO BEDTIME MRX1 PRN PRN Reason: Insomnia Last Admin: 02/18/24 20:24 Dose: 50 mg Allergies Allergies Allergy/AdvReac Type Severity Reaction Status Date / Time amoxicillin [AMOXICILLIN] Allergy Mild VOMITING/ABD Verified 09/10/23 19:44 PAIN Assessment & Plan Assessment & Plan (1) Schizoaffective disorder: Status: Acute Code(s): F25.9 - Schizoaffective disorder, unspecified (2) Hypothyroidism: Status: Acute Code(s): E03.9 - Hypothyroidism, unspecified (3) Type 2 diabetes mellitus: Status: Acute Code(s): E11.9 - Type 2 diabetes mellitus without complications (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 Plan: CV 15 minute safety checks Continue home medications: Haldol 10mg PO daily Synthroid 200mcg PO daily Obtain labs; A1C/POCs Obtain collateral from sister Obtain records from last hospitalization. MOCA Referral for [facility] services if patient is agreeable. encourage medication compliance;consider VARGAS discharge planning 09/11: Elevated fasting blood sugar elevated hemoglobin A1c 9.2 med consult placed put in point of care needed will start metformin Would benefit from clarity over recent hospitalization what this were done details regarding treatment continue Haldol unclear if patient has Healthcare proxy his Seltzer was low slowed cognition with poor details in depth at times during blankly regarding making judgments Unclear if any of this relates to past coma or 2 hypothyroidism. He does seem more impaired than when last seen unclear when last imaging was. Continue Haldol sitter neuro indira involvement regarding diagnostic picture. Patient does remain paranoid blunted suspicious apathetic. He might benefit from longer-term placement if available and appropriate at a later time involved H involvement would be quite helpful 09/12: cont haldol get records ? hcp ? start antidep unclear hx 09/13: Keeping to self. More talkative today. Pt concerned he will be transferred to [facility]. Pt stated, The paper I signed yesterday. Are you going to send me back to the last hospital? That place was horrible . Pt was educated he signed a release of information with Dr. Gonzalez to obtain records from [facility]. Pt was given a copy of the release he signed. Despite this, pt continues to be anxious about being transferred. Pt denies SI/HI/VH/AH. 09/14: Keeping to self. active on unit. showered. Pt reports feeling alright today; pt reports he is worried about where I'm going to go . Pt continues concerned he will be transferred to [facility]. Pt denies SI/HI/VH/AH. 09/15:Pt reports feeling alright today; pt continues to report he is worried about where I'm going to go . Responding with brief responses. Guarded. Observed standing in one place for a long period of time. Appears confused. Pt denies SI/HI/VH/AH. T/W spoke to patient's sister, Ros, with patients verbal consent. Ros reports concerns regarding patients ability to make decisions regarding his mental and physical health. She plans on contacting legal advice on obtaining guardianship of patient. 09/16:Patient's presents similar to yesterday's presentation. Responding with brief responses. Guarded. Observed standing in one place for a long period of time, when asked what he is doing, pt stated, I don't know . Pt reports he plans on contacting his sister today and try to convince her for me to stay there . Pt denies SI/HI/VH/AH. Continue current tx plan. 09/17: brief responses. Guarded. 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 Pt denies SI/HI/VH/AH. T/W and Dr. Gonzalez spoke to patient's sister, Ros. Ros stated being [facility] HCP and plans on finding document. She plans on coming to the hospital on Saturday to be present for [facility] intake. 09/21: No changes 09/22:Patient flat apathetic difficult insight and judgment his sister is healthcare proxy if needed patient is accepting medical treatment [facility] 09/23:Considers starting Haldol Decanoate patient is agreeable superficially difficulty with exec [facility]x [facility] 09/24:Pt seen in f/u mood flat dysphoric difficulty engaging in conversation preoccupied with thought he wont be living with family thing slowed apathetic no clear response with namenda ? some improvement inc lamictal start low dose sertraline inc lamictal ck tsh 09/25:Start Abilify as augmentation with Haldol see if can be more stimulating regarding depressed mood apathetic limited engagement sertraline 50 mg Lamictal 25 b.i.d. [facility] which would have structure unclear if patient can engage with this he remains quite depressed has delusional beliefs regarding housing and that things have been done he has repeatedly tried to reach out to his sister denies active SI needs much help dressing talking with others encouragement to eat severe thought blocking Abilify might be more stimulating than Haldol which can be more dulling 09/26:Abilify started sertraline Lamictal encouraged step-down to [facility] encourage reality orientation denies active SI 09/27: Continue current regimen and plans 09/28: Continue current regimen and plans. 09/29: Referral to [facility] increase Abilify to 5 mg daily eventually try and taper Haldol sertraline 50 mg daily 09/30:Increase Abilify to 10 mg lower Haldol to 7 mg continue sertraline and Lamictal 10/01:Abilify increased to 10 mg continue to taper Haldol sertraline 100 mg Lamictal increased to 75 mg patient apathetic withdrawn difficulty with placement some paranoia continues difficulty with decision making at times. Not physically aggressive internally preoccupied seems somewhat improved with Abilify sertraline Continue discharge planning 10/02:Patient somewhat blunted flat slowed thinking during the day times staring. Change Abilify to 10 mg at bedtime. Scheduled Haldol will lowered to 2.5 mg Continue sertraline 100 mg Namenda 5 b.i.d. 10/03:Haldol discontinued modafinil low-dose monitor for psychosis or agitation continue discharge planning 10/06: May need to firm healthcare proxy calls have been placed to sister to try to help in discharge planning. Referrals made. Patient cooperative with care 10/07:Pharmacy ordering Abilify maintain a increase modafinil 100 mg patient remains flat passive depressed some improvement noted no current paranoia noted continue discharge planning no current safe discharge plan 10/08: Increase Lamictal 100 mg Abilify Maintena 400 mg hold modafinil unclear if was overly stimulating patient continues to present internally preoccupied. 10/09:Healthcare proxy invoked discharge planning continue Lamictal Abilify pending maintain a 10/10:Healthcare proxy invoked new CV signed discharge planning. 10/11 keep same treatment 10/12 keep same treatment 10/13: Continue plan of care Lamictal Abilify discharge planning sertraline 10/14: stable. continue current mgmt. 10/15: stable. continue current mgmt. 10/16: stable presentation. continue current mgmt. 10/17: as for yesterday. 10/18: no changes. 10/19: stabel, safe. no change. 10/20: no change in presentation. calm, cooperative. active on unit, social with select peers, attending groups. Pt reports feeling alright . denies SI/HI/VH/AH. Social work waiting to hear from possible placement location. Continue current tx plan. 10/21: continue current tx plan. awaiting placement. 10/22: calm, cooperative. active on unit, social with select peers, attending groups. Pt reports feeling good ; pt stated, I'm waiting to see where I'm going . denies SI/HI/VH/AH. Showered with encouragement. 10/23: continue current tx plan. 10/24: calm, cooperative. active on unit, social with select peers, attending groups. Pt reports feeling good ; pt stated, I just want a place to live . 10/25- likely at baseline for him- CTP 10/26 CTP likely needs placement 10/27: continue current tx plan. awaiting placement. 10/28: Similar to yesterday. No change in presentation. 10/29: Pt reports feeling good ;pt stated, just waiting for a place to live . denies any issues at this time. 10/30: calm, cooperative. active on unit, social with select peers, attending groups. Pt reports feeling worried about where I am going to live . denies any issues at this time. 10/21: no change in presentation. continue current tx plan. 11/01: continue current management and treatment plan. 11/02: Continue current management and treatment plan. 11/03: Continue current management and treatment plan. 11/04: Active on unit. calm, cooperative. social with select peers, attending groups. denies any issues at this time. He reports sleeping well. Pt reports he would be interested in applying for [facility] services; social work aware. 11/05: Active on unit. calm, cooperative. social with select peers, attending groups. denies any issues at this time. Pt reports feeling okay ; he reports anxiety regarding placement. Continue current tx plan. 11/07/23 [facility] referral has appropriate concerns re living stuation cont abilify lamictal 11/08/23 Pt cooperative with care d/c planning working with cont d/c planning cont lamictal abilify 11/12/23 Patient increasingly despairing aware of no clear discharge plan periods needs cuing for much functioning limited social engaged needs help regarding diabetes and medication compliance reportedly had been rejected by multiple rest homes patient not threatening intermittently hopeless helpless very limited family contact at this time 11/13/23 pt flat depressed hopeless helpless unable to fx without structure 11/15 continue tx. 11/16 continue tx. 11/18/2023 Continue plan of care referral to [facility] TSH low will decrease levothyroxine 11/19/23 Pt flat dysphor ic inc hopeless helpless lamictal 150 hs dec levothyroxine 150 d/c planning cont 11/20/23 lamictal inc d/c planning [facility] referral 12/02/2023 Continue Lamictal Abilify patient cooperative with care gets despairing at times regarding lack of family support problematic discharge planning in relationship to finding suitable structured place to live 12/02: Social with peers. Per nursing, pt did not sleep last night. Pt reports he did not sleeping because he wasn't tired but feel okay ; ordered Ativan 1mg PO bedtime for tonight, pt aware. 12/03: In bed sleeping, pt reports he is catching up on sleep from the night before. Calm, cooperative. T/W and lumber yard worker, Billie, with pt to discuss possibly going to the [facility]. Pt reports he would like to call his sister and speak to her before deciding. DC Ativan. 12/04: Active on unit, social with peers. attending groups. T/W and lumber yard worker, Billie, met with pt to discuss discharge plan. Pt reports he doesn't know if he would want to go to a homeless longterm; he states he would rather live on the street because I've done it before . Pt encouraged to consider benefits of going to a longterm with the winter months coming; he agreed to doing phone intake with social and human services assistant on Saturday with [facility]. 12/05: Pt presents similar to yesterday. Continues to perseverate about [facility] being a longterm and not a program; He continues to agree to do phone intake on Saturday. Discussed VARGAS, pt reports he want time to consider d/t not liking needles . 12/08: Pt had phone interview with [facility], however, after multiple attempts at calling them, no one at [facility] picked up the phone to conduct interview. lumber yard worker to get into contact with them again. Pt denies any issues at this time. 12/09: Active on unit, social with peers. Pt denies any issues at this time. Patient agreed to receiving Abilify Maintena; risks/benefits reviewed. Waiting on placement. 12/10: Patient received Abilify Maintena yesterday. He denies any side effects. Pleasant. Waiting on placement. 12/11: continue current tx plan. 12/12: similar to days prior. waiting on placement. continue current tx plan. 12/13: appearing more depressed or demoralized. notes lots of people come and go. continue current mgmt. 12/14: same as for yesterday: find me a place to live? continue current mgmt. 12/15: out and about more. otherwise stable. continue current mgmt. 12/16: continue current tx plan. 12/17: continue current tx plan. 12/18: awaiting placement. denies any issues. 12/19: Pt reports feeling alright ; Social work continues to work on placement. Pt denies any issues at this time. Pt reports sleeping well. 12/20: Continue plan of care 12/21: Continue plan of care 12/22: continue current tx plan. 12/23: continue tx plan. 12/24: continue tx plan. 12/25: similar to days prior. waiting on placement. 12/26: Continue current tx plan. 12/27: Continue current management and treatment plan. 12/28: Continue current management and treatment plan. 12/29: In bed, tested positive for Covid. Vomited x1 per nursing. Pt reports feeling okay ; sleeping most of shift. Continue current tx plan. 12/30: Pt reports feeling okay ; continues on isolation d/t being Covid positive. Utilizing IPad. Pt reports sleeping well. denies SI/HI/VH/AH. Has not vomited today. 12/31: Pt reports feeling alright ; pt stated, I still have a stuffy nose, cough and headache but I'm starting to feel better . continues on isolation. denies other issues at this time. Continue current tx plan. 01/01: pt reports covid symptoms are improving. continues waiting on placement. 01/02: Continue tx plan. 01/05/24: no changes. 01/05: Active on unit. Pt reports feeling okay today; denies any issues at this time. pt had meeting with [facility] to be placed on list for temporary placement; pt declined. Dr. Gonzalez to speak to patient regarding this. 01/06: Discussed placement; pt reports he is thinking about saying yes to the motel . pt reports he does not believe his sister or social and human services assistant that he has money saved in the bank. Pt believes if he left to go to the motel he would be stuck there with no money . Social work to discuss with pt. 01/07: Active on unit. social with peers. denies any issues. Pt reports feeling okay ; reports he is still thinking about where he will go after discharge. 01/08: waiting on placement. continue current tx plan. 01/09: Patient continues to wait on placement. 119: Continue current management and treatment plan. 03/13: Continue current management and treatment plan. 01/12: waiting on placement. 01/13: continue current tx plan. 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 noted on the unit to fixate on certain female peers. 01/24 continues with impaired insight/judgement- risk to others requiring inpatient and 1;01/25 given poor insight and stalking behavior continues to need inpt level of stay 02/01/24 Patient with odd affect feels safe in this setting requires structured setting given neurocognitive behavioral difficulties 02/02/24 Pt flat blunted not aggressive but can be intrusive needs help with medication and cueing 02/09/2024: Awaiting placement. Without appropriate placement, would lead to rapid decompensation and inability to care for self. Plan 1. Continue with same treatment. 2. Waiting for placement Reason for continued inpatient stay Substantial Risk for: inability to function, rapid decompensation and med/psych decompensation Time Spent With Patient Time: Total time managing care of this patient today _20___ minutes.
[2024-02-19] MEDS: metFORMIN HCl ER 500 MG TAB.ER.24H 1000 MG PO (16:37)
[2024-02-19 19:50] VITALS: BP 126/71; PULSE 85; TEMP 36.5; O2SAT 97
[2024-02-19] MEDS: lamoTRIgine 100 MG TABLET 150 MG PO (20:36)
[2024-02-19] MEDS: traZODone HCL 50 MG TABLET PO ×2 (20:37→23:26)
[2024-02-19] MEDS: Insulin Glargine,Hum.rec.anlog 100 UNIT/ML 10 ML VIAL 20 UNIT SUBCUT (20:38)
[2024-02-20] MEDS: Levothyroxine Sodium 150 MCG TABLET PO (06:20)
[2024-02-20 06:53] LABS: Glucose, Whole Blood 98 mg/dL (60-115)
[2024-02-20 07:00] VITALS: BMI 31.8
--- NOTE | 2024-02-20 08:23 | P.PNPSI_ITS ---
Subjective Subjective Date of Service: 02/20/24 Reason For Visit: crisis Subjective Notes: Conditional Voluntary Interim History: Pt sleeping through the night. He is pleasant on approach but tendency to over fixates on peers (over protecting and caregiver role), especially female. No inappropriate behaviors, able to be redirected. No SI/HI. He denies any concerns. He reports likes it here. Taking medications as prescribed. No aggression. Medication Compliance: Yes Review of Systems Review of Systems Unremarkable Yes all other systems are reviewed and are negative and unobtainable due to endotracheal tube Constitutional: Reports as per HPI Eyes: Reports as per HPI Reports as per HPI Cardiovascular: Reports as per HPI Respiratory: Reports as per HPI Gastrointestinal: Reports as per HPI Genitourinary: Reports as per HPI Musculoskeletal: Reports as per HPI Skin/Breast: Reports as per HPI Reports as per HPI Psychiatric: Reports as per HPI Endocrine: Reports as per HPI Hematologic/Lymphatic: Reports as per HPI Allergic/Immunologic: Reports as per HPI Mental Status Exam Mental Status Exam Patient Appearance: Appropriate Patient Orientation: Person and Situation Level of Consciousness: Awake and Appropriate Patient Behavior: Guarded and Passive Mood Description: Withdrawn Affect Description: Constricted Patient Cognition Impaired: Yes Ability to Follow Directions: Good Speech Pattern: Clear 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: Silk Examiner Impaired Diagnostics Vital Signs (24Hr): Vital Signs - 24 hr 02/19/24 19:50 Temperature 97.7 F Pulse Rate 85 Blood Pressure 126/71 Pulse Oximetry 97 Oxygen Delivery Method Room Air BMI result Body Mass Index 32.5 Labs 09/10/23 20:00 02/20/24 08:38 Labs: Laboratory Results - last 48 hr 02/19/24 02/20/24 06:23 06:43 POC Glucose 114 98 Imaging Radiology Impressions: ITS Impressions Brain MRI 09/19/23 20:33 IMPRESSION: 1. No demonstrated acute intracranial abnormalities. 2. Chronic mild to moderate nonspecific white matter changes, most notably in the deep white matter of the right frontal lobe. Mild to moderate generalized cerebral volume loss. Medications Medications Current Medications Acetaminophen (Acetaminophen 325 Mg Tablet) 650 mg PO Q6H PRN PRN Reason: Headache/Pain Mild Scale (1-3) Last Admin: 01/01/24 08:45 Dose: 650 mg Al Hydroxide/Mg Hydroxide (Magnesium Hydrox/Alum Hydrox 30 Ml Oral.Susp) 30 ml PO Q6H PRN PRN Reason: Heartburn/Nausea Last Admin: 11/27/23 10:48 Dose: 30 ml Aripiprazole (Aripiprazole Er 300 Mg Suser.Syr) 300 mg IM Q28D@0900 [facility] Last Admin: 02/05/24 10:14 Dose: 300 mg Benzocaine (Throat Lozenge, Medicated Lozenge) 1 lozenge MUCOUS MEM Q2H PRN PRN Reason: Sore Throat Last Admin: 12/30/23 20:59 Dose: 1 lozenge Benztropine Mesylate (Benztropine Mesylate 0.5 Mg Tablet) 0.5 mg PO TID PRN PRN Reason: Extrapyramidal Effects Glucose (Glucose Gel 15 Gm Gel..Gram.) 15 gm PO Q15M PRN; Protocol PRN Reason: per Hypoglycemia Standing Ord. Guaifenesin/Dextromethorphan (Guaifenesin Dm 100/10/5 Ml 5 Ml Syrup) 5 ml PO Q4H PRN PRN Reason: Cough Last Admin: 01/06/24 22:48 Dose: 5 ml Hydroxyzine HCl (Hydroxyzine Hcl 25 Mg Tablet) 25 mg PO Q6H PRN PRN Reason: Anxiety Last Admin: 02/05/24 23:17 Dose: 25 mg Dextrose (D10) 250 mls @ 750 mls/hr IV Q15M PRN; Protocol PRN Reason: per Hypoglycemia Standing Ord. Insulin Glargine (Insulin Glargine,Hum.Rec.Anlog 100 Unit/Ml 10 Ml Vial) 20 unit SUBCUT BEDTIME [facility] Last Admin: 02/19/24 20:38 Dose: 20 unit Lamotrigine (Lamotrigine 100 Mg Tablet) 150 mg PO BEDTIME [facility] Last Admin: 02/19/24 20:36 Dose: 150 mg Levothyroxine Sodium (Levothyroxine Sodium 150 Mcg Tablet) 150 mcg PO DAILY@0630 [facility] Last Admin: 02/20/24 06:20 Dose: 150 mcg Magnesium Hydroxide (Milk Of Magnesia 30 Ml Oral.Susp) 30 ml PO DAILY PRN PRN Reason: Constipation Memantine (Memantine Hcl 5 Mg Tablet) 5 mg PO BID [facility] Last Admin: 02/19/24 20:37 Dose: 5 mg Metformin HCl (Metformin Hcl Er 500 Mg Tab.Er.24h) 1,000 mg PO DAILY@1700 [facility] Last Admin: 02/19/24 16:37 Dose: 1,000 mg Ondansetron HCl (Ondansetron Odt 8 Mg Tab.Rapdis) 8 mg TRANSLINGU Q8H PRN PRN Reason: Nausea and Vomiting Last Admin: 02/17/24 10:06 Dose: 8 mg Sertraline HCl (Sertraline Hcl 50 Mg Tablet) 50 mg PO DAILY [facility] Last Admin: 02/19/24 08:10 Dose: 50 mg Simethicone (Simethicone 80 Mg Tab.Chew) 80 mg PO QIDWMHS PRN PRN Reason: Gas Trazodone HCl (Trazodone Hcl 50 Mg Tablet) 50 mg PO BEDTIME MRX1 PRN PRN Reason: Insomnia Last Admin: 02/19/24 23:26 Dose: 50 mg Allergies Allergies Allergy/AdvReac Type Severity Reaction Status Date / Time amoxicillin [AMOXICILLIN] Allergy Mild VOMITING/ABD Verified 09/10/23 19:44 PAIN Assessment & Plan Assessment & Plan (1) Schizoaffective disorder: Status: Acute Code(s): F25.9 - Schizoaffective disorder, unspecified (2) Hypothyroidism: Status: Acute Code(s): E03.9 - Hypothyroidism, unspecified (3) Type 2 diabetes mellitus: Status: Acute Code(s): E11.9 - Type 2 diabetes mellitus without complications (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 Plan: CV 15 minute safety checks Continue home medications: Haldol 10mg PO daily Synthroid 200mcg PO daily Obtain labs; A1C/POCs Obtain collateral from sister Obtain records from last hospitalization. MOCA Referral for DMH services if patient is agreeable. encourage medication compliance;consider VARGAS discharge planning 09/11: Elevated fasting blood sugar elevated hemoglobin A1c 9.2 med consult placed put in point of care needed will start metformin Would benefit from clarity over recent hospitalization what this were done details regarding treatment continue Haldol unclear if patient has Healthcare proxy his Cotton was low slowed cognition with poor details in depth at times during blankly regarding making judgments Unclear if any of this relates to past coma or 2 hypothyroidism. He does seem more impaired than when last seen unclear when last imaging was. Continue Haldol sitter neuro indira involvement regarding diagnostic picture. Patient does remain paranoid blunted suspicious apathetic. He might benefit from longer- term placement if available and appropriate at a later time involved DMH involvement would be quite helpful 09/12: cont haldol get records ? hcp ? start antidep unclear hx 09/13: Keeping to self. More talkative today. Pt concerned he will be transferred to [facility]. Pt stated, The paper I signed yesterday. Are you going to send me back to the last hospital? That place was horrible . Pt was educated he signed a release of information with Dr. Gonzalez to obtain records from [facility]. Pt was given a copy of the release he signed. Despite this, pt continues to be anxious about being transferred. Pt denies SI/HI/VH/AH. 09/14: Keeping to self. active on unit. showered. Pt reports feeling alright today; pt reports he is worried about where I'm going to go . Pt continues concerned he will be transferred to [facility]. Pt denies SI/HI/VH/AH. 09/15:Pt reports feeling alright today; pt continues to report he is worried about where I'm going to go . Responding with brief responses. Guarded. Observed standing in one place for a long period of time. Appears confused. Pt denies SI/HI/VH/AH. T/W spoke to patient's sister, Ros, with patients verbal consent. Ros reports concerns regarding patients ability to make decisions regarding his mental and physical health. She plans on contacting legal advice on obtaining guardianship of patient. 09/16:Patient's presents similar to yesterday's presentation. Responding with brief responses. Guarded. Observed standing in one place for a long period of time, when asked what he is doing, pt stated, I don't know . Pt reports he plans on contacting his sister today and try to convince her for me to stay there . Pt denies SI/HI/VH/AH. Continue current tx plan. 09/17: brief responses. Guarded. 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 Pt denies SI/HI/VH/AH. T/W and Dr. Gonzalez spoke to patient's sister, oRs. Ros stated being [facility] HCP and plans on finding document. She plans on coming to the hospital on Saturday to be present for [facility] intake. 09/21: No changes 09/22:Patient flat apathetic difficult insight and judgment his sister is healthcare proxy if needed patient is accepting medical treatment Referral to [facility] 09/23:Considers starting Haldol Decanoate patient is agreeable superficially difficulty with exec fx was seen [facility] 09/24:Pt seen in f/u mood flat dysphoric difficulty engaging in conversation preoccupied with thought he wont be living with family thing slowed apathetic no clear response with namenda ? some improvement inc lamictal start low dose sertraline inc lamictal ck tsh 09/25:Start Abilify as augmentation with Haldol see if can be more stimulating regarding depressed mood apathetic limited engagement sertraline 50 mg Lamictal 25 b.i.d. referral to [facility] which would have structure unclear if patient can engage with this he remains quite depressed has delusional beliefs regarding housing and that things have been done he has repeatedly tried to reach out to his sister denies active SI needs much help dressing talking with others encouragement to eat severe thought blocking Abilify might be more stimulating than Haldol which can be more dulling 09/26:Abilify started sertraline Lamictal encouraged step-down to [facility] encourage reality orientation denies active SI 09/27: Continue current regimen and plans 09/28: Continue current regimen and plans. 09/29: Referral to [facility] increase Abilify to 5 mg daily eventually try and taper Haldol sertraline 50 mg daily 09/30:Increase Abilify to 10 mg lower Haldol to 7 mg continue sertraline and Lamictal 10/01:Abilify increased to 10 mg continue to taper Haldol sertraline 100 mg Lamictal increased to 75 mg patient apathetic withdrawn difficulty with placement some paranoia continues difficulty with decision making at times. Not physically aggressive internally preoccupied seems somewhat improved with Abilify sertraline Continue discharge planning 10/02:Patient somewhat blunted flat slowed thinking during the day times staring. Change Abilify to 10 mg at bedtime. Scheduled Haldol will lowered to 2.5 mg Continue sertraline 100 mg Namenda 5 b.i.d. 10/03:Haldol discontinued modafinil low-dose monitor for psychosis or agitation continue discharge planning 10/06: May need to firm healthcare proxy calls have been placed to sister to try to help in discharge planning. Referrals made. Patient cooperative with care 10/07:Pharmacy ordering Abilify maintain a increase modafinil 100 mg patient remains flat passive depressed some improvement noted no current paranoia noted continue discharge planning no current safe discharge plan 10/08: Increase Lamictal 100 mg Abilify Maintena 400 mg hold modafinil unclear if was overly stimulating patient continues to present internally preoccupied. 10/09:Healthcare proxy invoked discharge planning continue Lamictal Abilify pending maintain a 10/10:Healthcare proxy invoked new CV signed discharge planning. 10/11 keep same treatment 10/12 keep same treatment 10/13: Continue plan of care Lamictal Abilify discharge planning sertraline 10/14: stable. continue current mgmt. 10/15: stable. continue current mgmt. 10/16: stable presentation. continue current mgmt. 10/17: as for yesterday. 10/18: no changes. 10/19: stabel, safe. no change. 10/20: no change in presentation. calm, cooperative. active on unit, social with select peers, attending groups. Pt reports feeling alright . denies SI/HI/VH/AH. Social work waiting to hear from possible placement location. Continue current tx plan. 10/21: continue current tx plan. awaiting placement. 10/22: calm, cooperative. active on unit, social with select peers, attending groups. Pt reports feeling good ; pt stated, I'm waiting to see where I'm going . denies SI/HI/VH/AH. Showered with encouragement. 10/23: continue current tx plan. 10/24: calm, cooperative. active on unit, social with select peers, attending groups. Pt reports feeling good ; pt stated, I just want a place to live . 10/25- likely at baseline for him- CTP 10/26 CTP likely needs placement 10/27: continue current tx plan. awaiting placement. 10/28: Similar to yesterday. No change in presentation. 10/29: Pt reports feeling good ;pt stated, just waiting for a place to live . denies any issues at this time. 10/30: calm, cooperative. active on unit, social with select peers, attending groups. Pt reports feeling worried about where I am going to live . denies any issues at this time. 10/21: no change in presentation. continue current tx plan. 11/01: continue current management and treatment plan. 11/02: Continue current management and treatment plan. 11/03: Continue current management and treatment plan. 11/04: Active on unit. calm, cooperative. social with select peers, attending groups. denies any issues at this time. He reports sleeping well. Pt reports he would be interested in applying for [facility] services; social work aware. 11/05: Active on unit. calm, cooperative. social with select peers, attending groups. denies any issues at this time. Pt reports feeling okay ; he reports anxiety regarding placement. Continue current tx plan. 11/07/23 DM referral has appropriate concerns re living stuation cont abilify lamictal 11/08/23 Pt cooperative with care d/c planning working with cont d/c planning cont lamictal abilify 11/12/23 Patient increasingly despairing aware of no clear discharge plan periods needs cuing for much functioning limited social engaged needs help regarding diabetes and medication compliance reportedly had been rejected by multiple rest homes patient not threatening intermittently hopeless helpless very limited family contact at this time 11/13/23 pt flat depressed hopeless helpless unable to fx without structure 11/15 continue tx. 11/16 continue tx. 11/18/2023 Continue plan of care referral to DM TSH low will decrease levothyroxine 11/19/23 Pt flat dysphor ic inc hopeless helpless lamictal 150 hs dec levothyroxine 150 d/c planning cont 11/20/23 lamictal inc d/c planning [facility] referral 12[facility]02/2023 [facility] patient cooperative with care gets despairing at times regarding lack of family support problematic discharge planning in relationship to finding suitable structured place to live 12/02: Social with peers. Per nursing, pt did not sleep last night. Pt reports he did not sleeping because he wasn't tired but feel okay ; ordered Ativan 1mg PO bedtime for tonight, pt aware. 12/03: In bed sleeping, pt reports he is catching up on sleep from the night before. Calm, cooperative. T/W and stock house worker, Billie, with pt to discuss possibly going to the [facility]. Pt reports he would like to call his sister and speak to her before deciding. DC Ativan. 12/04: Active on unit, social with peers. attending groups. T/W and stock house worker, Billie, met with pt to discuss discharge plan. Pt reports he doesn't know if he would want to go to a homeless fpc; he states he would rather live on the street because I've done it before . Pt encouraged to consider benefits of going to a fpc with the winter months coming; he agreed to doing phone intake with social services counselor on Saturday with [facility]. 12/05: Pt presents similar to yesterday. Continues to perseverate about [facility] being a fpc and not a program; He continues to agree to do phone intake on Saturday. Discussed VARGAS, pt reports he want time to consider d/t not liking needles . 12/08: Pt had phone interview with [facility], however, after multiple attempts at calling them, no one at [facility] picked up the phone to conduct interview. stock house worker to get into contact with them again. Pt denies any issues at this time. 12/09: Active on unit, social with peers. Pt denies any issues at this time. Patient agreed to receiving Abilify Maintena; risks/benefits reviewed. Waiting on placement. 12/10: Patient received Abilify Maintena yesterday. He denies any side effects. Pleasant. Waiting on placement. 12/11: continue current tx plan. 12/12: similar to days prior. waiting on placement. continue current tx plan. 12/13: appearing more depressed or demoralized. notes lots of people come and go. continue current mgmt. 12/14: same as for yesterday: find me a place to live? continue current mgmt. 12/15: out and about more. otherwise stable. continue current mgmt. 12/16: continue current tx plan. 12/17: continue current tx plan. 12/18: awaiting placement. denies any issues. 12/19: Pt reports feeling alright ; Social work continues to work on placement. Pt denies any issues at this time. Pt reports sleeping well. 12/20: Continue plan of care 12/21: Continue plan of care 12/22: continue current tx plan. 12/23: continue tx plan. 12/24: continue tx plan. 12/25: similar to days prior. waiting on placement. 12/26: Continue current tx plan. 12/27: Continue current management and treatment plan. 12/28: Continue current management and treatment plan. 12/29: In bed, tested positive for Covid. Vomited x1 per nursing. Pt reports feeling okay ; sleeping most of shift. Continue current tx plan. 12/30: Pt reports feeling okay ; continues on isolation d/t being Covid positive. Utilizing IPad. Pt reports sleeping well. denies SI/HI/VH/AH. Has not vomited today. 12/31: Pt reports feeling alright ; pt stated, I still have a stuffy nose, cough and headache but I'm starting to feel better . continues on isolation. denies other issues at this time. Continue current tx plan. 01/01: pt reports covid symptoms are improving. continues waiting on placement. 01/02: Continue tx plan. 01/05/24: no changes. 01/05: Active on unit. Pt reports feeling okay today; denies any issues at this time. pt had meeting with [facility] to be placed on list for temporary placement; pt declined. Dr. Gonzalez to speak to patient regarding this. 01/06: Discussed placement; pt reports he is thinking about saying yes to the motel . pt reports he does not believe his sister or social services counselor that he has money saved in the bank. Pt believes if he left to go to the motel he would be stuck there with no money . Social work to discuss with pt. 01/07: Active on unit. social with peers. denies any issues. Pt reports feeling okay ; reports he is still thinking about where he will go after discharge. 01/08: waiting on placement. continue current tx plan. 01/09: Patient continues to wait on placement. 119: Continue current management and treatment plan. 03/13: Continue current management and treatment plan. 01/12: waiting on placement. 01/13: continue current tx plan. 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 noted on the unit to fixate on certain female peers. 01/24 continues with impaired insight/judgement- risk to others requiring inpatient and 01/25 given poor insight and stalking behavior continues to need inpt level of stay 02/01/24 Patient with odd affect feels safe in this setting requires structured setting given neurocognitive behavioral difficulties 02/02/24 Pt flat blunted not aggressive but can be intrusive needs help with medication and cueing 02/09/2024: Awaiting placement. Without appropriate placement, would lead to rapid decompensation and inability to care for self. 02/20/24 continue tx. Reason for continued inpatient stay Substantial Risk for: inability to function Time Spent With Patient Time: Total time managing care of this patient today ____ minutes.
[2024-02-20 08:49] VITALS: BP 143/69; PULSE 85; RESP 18; TEMP 37; O2SAT 98
[2024-02-20] MEDS: Memantine HCl 5 MG TABLET PO ×2 (08:49→20:43)
[2024-02-20] MEDS: Sertraline HCL 50 MG TABLET PO (08:50)
[2024-02-20 08:59] LABS: Creatinine Clr Calc Pharmacy 97.9; Estimated Glomerular Filt Rate > 60
[2024-02-20] MEDS: metFORMIN HCl ER 500 MG TAB.ER.24H 1000 MG PO (16:16)
[2024-02-20 19:21] VITALS: BP 105/69; PULSE 87; TEMP 36.9; O2SAT 95
[2024-02-20] MEDS: Insulin Glargine,Hum.rec.anlog 100 UNIT/ML 10 ML VIAL 20 UNIT SUBCUT (20:43)
[2024-02-20] MEDS: lamoTRIgine 100 MG TABLET 150 MG PO (20:43)
[2024-02-21] MEDS: Levothyroxine Sodium 150 MCG TABLET PO (05:44)
[2024-02-21 06:25] LABS: Glucose, Whole Blood 121 mg/dL (60-115)
[2024-02-21 08:00] VITALS: BP 120/70; PULSE 68; RESP 18; TEMP 36.6; O2SAT 95
[2024-02-21] MEDS: Sertraline HCL 50 MG TABLET PO (09:40)
[2024-02-21] MEDS: Memantine HCl 5 MG TABLET PO ×2 (09:43→20:23)
--- NOTE | 2024-02-21 13:22 | HO.PSYCHPN ---
Subjective Subjective Date of Service: 02/21/24 Reason For Visit: crisis Subjective Notes: Conditional Voluntary Interim History: The nursing staff reported no changes in her mental status compliant with treatment. On interview the patient denies new symptoms, waiting for placement Mental Status Exam Mental Status Exam Patient Appearance: Well Grooomed and Appropriate Patient Orientation: Person and Situation Level of Consciousness: Awake and Appropriate Patient Behavior: Guarded and Passive Mood Description: Withdrawn Affect Description: Calm Patient Cognition Impaired: Yes Ability to Follow Directions: Good Speech Pattern: Clear 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: None Delusions: Not Present Thought Process: Distracted and Slowed Thinking Thought Content: positive for [place] and positive for Poverty of Content Judgement: Fair Diagnostics Vital Signs (24Hr): Vital Signs - 24 hr 02/20/24 19:21 02/21/24 08:00 Temperature 98.5 F 97.9 F Pulse Rate 87 68 Respiratory Rate 18 Blood Pressure 105/69 120/70 Pulse Oximetry 95 95 Oxygen Delivery Method Room Air Room Air BMI result Body Mass Index 31.8 Labs 09/10/23 20:00 02/20/24 08:38 Labs: Laboratory Results - last 48 hr 02/20/24 02/20/24 02/21/24 06:43 08:38 05:45 Creatinine 0.94 Estim Creat Clear Calc 97.9 Estimated GFR > 60 POC Glucose 98 121 H Imaging Radiology Impressions: ITS Impressions Brain MRI 09/19/23 20:33 IMPRESSION: 1. No demonstrated acute intracranial abnormalities. 2. Chronic mild to moderate nonspecific white matter changes, most notably in the deep white matter of the right frontal lobe. Mild to moderate generalized cerebral volume loss. Medications Medications Current Medications Acetaminophen (Acetaminophen 325 Mg Tablet) 650 mg PO Q6H PRN PRN Reason: Headache/Pain Mild Scale (1-3) Last Admin: 01/01/24 08:45 Dose: 650 mg Al Hydroxide/Mg Hydroxide (Magnesium Hydrox/Alum Hydrox 30 Ml Oral.Susp) 30 ml PO Q6H PRN PRN Reason: Heartburn/Nausea Last Admin: 11/27/23 10:48 Dose: 30 ml Aripiprazole (Aripiprazole Er 300 Mg Suser.Syr) 300 mg IM Q28D@0900 MANAS Last Admin: 02/05/24 10:14 Dose: 300 mg Benzocaine (Throat Lozenge, Medicated Lozenge) 1 lozenge MUCOUS MEM Q2H PRN PRN Reason: Sore Throat Last Admin: 12/30/23 20:59 Dose: 1 lozenge Benztropine Mesylate (Benztropine Mesylate 0.5 Mg Tablet) 0.5 mg PO TID PRN PRN Reason: Extrapyramidal Effects Glucose (Glucose Gel 15 Gm Gel..Gram.) 15 gm PO Q15M PRN; Protocol PRN Reason: per Hypoglycemia Standing Ord. Guaifenesin/Dextromethorphan (Guaifenesin Dm 100/10/5 Ml 5 Ml Syrup) 5 ml PO Q4H PRN PRN Reason: Cough Last Admin: 01/06/24 22:48 Dose: 5 ml Hydroxyzine HCl (Hydroxyzine Hcl 25 Mg Tablet) 25 mg PO Q6H PRN PRN Reason: Anxiety Last Admin: 02/05/24 23:17 Dose: 25 mg Dextrose (D10) 250 mls @ 750 mls/hr IV Q15M PRN; Protocol PRN Reason: per Hypoglycemia Standing Ord. Insulin Glargine (Insulin Glargine,Hum.Rec.Anlog 100 Unit/Ml 10 Ml Vial) 20 unit SUBCUT BEDTIME [facility] Last Admin: 02/20/24 20:43 Dose: 20 unit Lamotrigine (Lamotrigine 100 Mg Tablet) 150 mg PO BEDTIME [facility] Last Admin: 02/20/24 20:43 Dose: 150 mg Levothyroxine Sodium (Levothyroxine Sodium 150 Mcg Tablet) 150 mcg PO DAILY@0630 [facility] Last Admin: 02/21/24 05:44 Dose: 150 mcg Magnesium Hydroxide (Milk Of Magnesia 30 Ml Oral.Susp) 30 ml PO DAILY PRN PRN Reason: Constipation Memantine (Memantine Hcl 5 Mg Tablet) 5 mg PO BID [facility] Last Admin: 02/21/24 09:43 Dose: 5 mg Metformin HCl (Metformin Hcl Er 500 Mg Tab.Er.24h) 1,000 mg PO DAILY@1700 [facility] Last Admin: 02/20/24 16:16 Dose: 1,000 mg Ondansetron HCl (Ondansetron Odt 8 Mg Tab.Rapdis) 8 mg TRANSLINGU Q8H PRN PRN Reason: Nausea and Vomiting Last Admin: 02/17/24 10:06 Dose: 8 mg Sertraline HCl (Sertraline Hcl 50 Mg Tablet) 50 mg PO DAILY [facility] Last Admin: 02/21/24 09:40 Dose: 50 mg Simethicone (Simethicone 80 Mg Tab.Chew) 80 mg PO QIDWMHS PRN PRN Reason: Gas Trazodone HCl (Trazodone Hcl 50 Mg Tablet) 50 mg PO BEDTIME MRX1 PRN PRN Reason: Insomnia Last Admin: 02/19/24 23:26 Dose: 50 mg Allergies Allergies Allergy/AdvReac Type Severity Reaction Status Date / Time amoxicillin [AMOXICILLIN] Allergy Mild VOMITING/ABD Verified 09/10/23 19:44 PAIN Assessment & Plan Assessment & Plan (1) Schizoaffective disorder: Status: Acute Code(s): F25.9 - Schizoaffective disorder, unspecified (2) Hypothyroidism: Status: Acute Code(s): E03.9 - Hypothyroidism, unspecified (3) Type 2 diabetes mellitus: Status: Acute Code(s): E11.9 - Type 2 diabetes mellitus without complications (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 Plan: CV 15 minute safety checks Continue home medications: Haldol 10mg PO daily Synthroid 200mcg PO daily Obtain labs; A1C/POCs Obtain collateral from sister Obtain records from last hospitalization. MOCA Referral for [facility] services if patient is agreeable. encourage medication compliance;consider VARGAS discharge planning 09/11: Elevated fasting blood sugar elevated hemoglobin A1c 9.2 med consult placed put in point of care needed will start metformin Would benefit from clarity over recent hospitalization what this were done details regarding treatment continue Haldol unclear if patient has Healthcare proxy his [place] was low slowed cognition with poor details in depth at times during blankly regarding making judgments Unclear if any of this relates to past coma or 2 hypothyroidism. He does seem more impaired than when last seen unclear when last imaging was. Continue Haldol sitter neuro indira involvement regarding diagnostic picture. Patient does remain paranoid blunted suspicious apathetic. He might benefit from longer-term placement if available and appropriate at a later time involved H involvement would be quite helpful 09/12: cont haldol get records ? hcp ? start antidep unclear hx 09/13: Keeping to self. More talkative today. Pt concerned he will be transferred to [facility]. Pt stated, The paper I signed yesterday. Are you going to send me back to the last hospital? That place was horrible . Pt was educated he signed a release of information with Dr. Gonzalez to obtain records from [facility]. Pt was given a copy of the release he signed. Despite this, pt continues to be anxious about being transferred. Pt denies SI/HI/VH/AH. 09/14: Keeping to self. active on unit. showered. Pt reports feeling alright today; pt reports he is worried about where I'm going to go . Pt continues concerned he will be transferred to [facility]. Pt denies SI/HI/VH/AH. 09/15:Pt reports feeling alright today; pt continues to report he is worried about where I'm going to go . Responding with brief responses. Guarded. Observed standing in one place for a long period of time. Appears confused. Pt denies SI/HI/VH/AH. T/W spoke to patient's sister, Ros, with patients verbal consent. Ros reports concerns regarding patients ability to make decisions regarding his mental and physical health. She plans on contacting legal advice on obtaining guardianship of patient. 09/16:Patient's presents similar to yesterday's presentation. Responding with brief responses. Guarded. Observed standing in one place for a long period of time, when asked what he is doing, pt stated, I don't know . Pt reports he plans on contacting his sister today and try to convince her for me to stay there . Pt denies SI/HI/VH/AH. Continue current tx plan. 09/17: brief responses. Guarded. Continues to pbx installer one place for a long period of time, when asked what he is doing, pt stated, I don't know . Pt denies SI/HI/VH/AH. T/W and Dr. Gonzalez spoke to patient's sister, Ros. Ros stated being [facility] HCP and plans on finding document. She plans on coming to the hospital on Saturday to be present for [facility] intake. 09/21: No changes 09/22:Patient flat apathetic difficult insight and judgment his sister is healthcare proxy if needed patient is accepting medical treatment Referral to [facility] 09/23:Considers starting Haldol Decanoate patient is agreeable superficially difficulty with exec fx was seen [facility] 09/24:Pt seen in f/u mood flat dysphoric difficulty engaging in conversation preoccupied with thought he wont be living with family thing slowed apathetic no clear response with namenda ? some improvement inc lamictal start low dose sertraline inc lamictal ck tsh 09/25:Start Abilify as augmentation with Haldol see if can be more stimulating regarding depressed mood apathetic limited engagement sertraline 50 mg Lamictal 25 b.i.d. referral to [facility] which would have structure unclear if patient can engage with this he remains quite depressed has delusional beliefs regarding housing and that things have been done he has repeatedly tried to reach out to his sister denies active SI needs much help dressing talking with others encouragement to eat severe thought blocking Abilify might be more stimulating than Haldol which can be more dulling 09/26:Abilify started sertraline Lamictal encouraged step-down to [facility] encourage reality orientation denies active SI 09/27: Continue current regimen and plans 09/28: Continue current regimen and plans. 09/29: Referral to [facility] increase Abilify to 5 mg daily eventually try and taper Haldol sertraline 50 mg daily 09/30:Increase Abilify to 10 mg lower Haldol to 7 mg continue sertraline and Lamictal 10/01:Abilify increased to 10 mg continue to taper Haldol sertraline 100 mg Lamictal increased to 75 mg patient apathetic withdrawn difficulty with placement some paranoia continues difficulty with decision making at times. Not physically aggressive internally preoccupied seems somewhat improved with Abilify sertraline Continue discharge planning 10/02:Patient somewhat blunted flat slowed thinking during the day times staring. Change Abilify to 10 mg at bedtime. Scheduled Haldol will lowered to 2.5 mg Continue sertraline 100 mg Namenda 5 b.i.d. 10/03:Haldol discontinued modafinil low-dose monitor for psychosis or agitation continue discharge planning 10/06: May need to firm healthcare proxy calls have been placed to sister to try to help in discharge planning. Referrals made. Patient cooperative with care 10/07:Pharmacy ordering Abilify maintain a increase modafinil 100 mg patient remains flat passive depressed some improvement noted no current paranoia noted continue discharge planning no current safe discharge plan 10/08: Increase Lamictal 100 mg Abilify Maintena 400 mg hold modafinil unclear if was overly stimulating patient continues to present internally preoccupied. 10/09:Healthcare proxy invoked discharge planning continue Lamictal Abilify pending maintain a 10/10:Healthcare proxy invoked new CV signed discharge planning. 10/11 keep same treatment 10/12 keep same treatment 10/13: Continue plan of care Lamictal Abilify discharge planning sertraline 10/14: stable. continue current mgmt. 10/15: stable. continue current mgmt. 10/16: stable presentation. continue current mgmt. 10/17: as for yesterday. 10/18: no changes. 10/19: stabel, safe. no change. 10/20: no change in presentation. calm, cooperative. active on unit, social with select peers, attending groups. Pt reports feeling alright . denies SI/HI/VH/AH. Social work waiting to hear from possible placement location. Continue current tx plan. 10/21: continue current tx plan. awaiting placement. 10/22: calm, cooperative. active on unit, social with select peers, attending groups. Pt reports feeling good ; pt stated, I'm waiting to see where I'm going . denies SI/HI/VH/AH. Showered with encouragement. 10/23: continue current tx plan. 10/24: calm, cooperative. active on unit, social with select peers, attending groups. Pt reports feeling good ; pt stated, I just want a place to live . 10/25- likely at baseline for him- CTP 10/26 CTP likely needs placement 10/27: continue current tx plan. awaiting placement. 08/27: Similar to yesterday. No change in presentation. 10/29: Pt reports feeling good ;pt stated, just waiting for a place to live . denies any issues at this time. 10/30: calm, cooperative. active on unit, social with select peers, attending groups. Pt reports feeling worried about where I am going to live . denies any issues at this time. 10/21: no change in presentation. continue current tx plan. 11/01: continue current management and treatment plan. 11/02: Continue current management and treatment plan. 11/03: Continue current management and treatment plan. 11/04: Active on unit. calm, cooperative. social with select peers, attending groups. denies any issues at this time. He reports sleeping well. Pt reports he would be interested in applying for [facility] services; social work aware. 11/05: Active on unit. calm, cooperative. social with select peers, attending groups. denies any issues at this time. Pt reports feeling okay ; he reports anxiety regarding placement. Continue current tx plan. 11/07/23 [facility] referral has appropriate concerns re living stuation cont abilify lamictal 11/08/23 Pt cooperative with care d/c planning working with cont d/c planning cont lamictal abilify 11/12/23 Patient increasingly despairing aware of no clear discharge plan periods needs cuing for much functioning limited social engaged needs help regarding diabetes and medication compliance reportedly had been rejected by multiple rest homes patient not threatening intermittently hopeless helpless very limited family contact at this time 11/13/23 pt flat depressed hopeless helpless unable to fx without structure 11/15 continue tx. 11/16 continue tx. 11/18/2023 Continue plan of care referral to [facility] TSH low will decrease levothyroxine 11/19/23 Pt flat dysphor ic inc hopeless helpless lamictal 150 hs dec levothyroxine 150 d/c planning cont 11/20/23 lamictal inc d/c planning [facility] referral 12/02/2023 Continue Lamictal Abilify patient cooperative with care gets despairing at times regarding lack of family support problematic discharge planning in relationship to finding suitable structured place to live 12/02: Social with peers. Per nursing, pt did not sleep last night. Pt reports he did not sleeping because he wasn't tired but feel okay ; ordered Ativan 1mg PO bedtime for tonight, pt aware. 12/03: In bed sleeping, pt reports he is catching up on sleep from the night before. Calm, cooperative. T/W and weigh and charge worker, Billie, with pt to discuss possibly going to the [facility]. Pt reports he would like to call his sister and speak to her before deciding. DC Ativan. 12/04: Active on unit, social with peers. attending groups. T/W and weigh and charge worker, Billie, met with pt to discuss discharge plan. Pt reports he doesn't know if he would want to go to a homeless assisted; he states he would rather live on the street because I've done it before . Pt encouraged to consider benefits of going to a assisted with the winter months coming; he agreed to doing phone intake with social worker aide on Saturday with [facility]. 12/05: Pt presents similar to yesterday. Continues to perseverate about [facility] being a assisted and not a program; He continues to agree to do phone intake on Saturday. Discussed VARGAS, pt reports he want time to consider d/t not liking needles . 12/08: Pt had phone interview with [facility], however, after multiple attempts at calling them, no one at [facility] picked up the phone to conduct interview. weigh and charge worker to get into contact with them again. Pt denies any issues at this time. 12/09: Active on unit, social with peers. Pt denies any issues at this time. Patient agreed to receiving Abilify Maintena; risks/benefits reviewed. Waiting on placement. 12/10: Patient received Abilify Maintena yesterday. He denies any side effects. Pleasant. Waiting on placement. 12/11: continue current tx plan. 12/12: similar to days prior. waiting on placement. continue current tx plan. 12/13: appearing more depressed or demoralized. notes lots of people come and go. continue current mgmt. 12/14: same as for yesterday: find me a place to live? continue current mgmt. 12/15: out and about more. otherwise stable. continue current mgmt. 12/16: continue current tx plan. 12/17: continue current tx plan. 12/18: awaiting placement. denies any issues. 12/19: Pt reports feeling alright ; Social work continues to work on placement. Pt denies any issues at this time. Pt reports sleeping well. 12/20: Continue plan of care 12/21: Continue plan of care 12/22: continue current tx plan. 12/23: continue tx plan. 12/24: continue tx plan. 12/25: similar to days prior. waiting on placement. 12/26: Continue current tx plan. 12/27: Continue current management and treatment plan. 12/28: Continue current management and treatment plan. 12/29: In bed, tested positive for Covid. Vomited x1 per nursing. Pt reports feeling okay ; sleeping most of shift. Continue current tx plan. 12/30: Pt reports feeling okay ; continues on isolation d/t being Covid positive. Utilizing IPad. Pt reports sleeping well. denies SI/HI/VH/AH. Has not vomited today. 12/31: Pt reports feeling alright ; pt stated, I still have a stuffy nose, cough and headache but I'm starting to feel better . continues on isolation. denies other issues at this time. Continue current tx plan. 01/01: pt reports covid symptoms are improving. continues waiting on placement. 01/02: Continue tx plan. 01/05/24: no changes. 01/05: Active on unit. Pt reports feeling okay today; denies any issues at this time. pt had meeting with [facility] to be placed on list for temporary placement; pt declined. Dr. Gonzalez to speak to patient regarding this. 01/06: Discussed placement; pt reports he is thinking about saying yes to the motel . pt reports he does not believe his sister or social worker aide that he has money saved in the bank. Pt believes if he left to go to the motel he would be stuck there with no money . Social work to discuss with pt. 01/07: Active on unit. social with peers. denies any issues. Pt reports feeling okay ; reports he is still thinking about where he will go after discharge. 01/08: waiting on placement. continue current tx plan. 01/09: Patient continues to wait on placement. 119: Continue current management and treatment plan. 03/13: Continue current management and treatment plan. 01/12: waiting on placement. 01/13: continue current tx plan. 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 noted on the unit to fixate on certain female peers. 01/24 continues with impaired insight/judgement- risk to others requiring inpatient and 101/25 given poor insight and stalking behavior continues to need inpt level of stay 02/01/24 Patient with odd affect feels safe in this setting requires structured setting given neurocognitive behavioral difficulties 02/02/24 Pt flat blunted not aggressive but can be intrusive needs help with medication and cueing 02/09/2024: Awaiting placement. Without appropriate placement, would lead to rapid decompensation and inability to care for self. 02/20/24 continue tx. 02/20 continue tx. Reason for continued inpatient stay Substantial Risk for: inability to function, rapid decompensation and med/psych decompensation Time Spent With Patient Time: Total time managing care of this patient today __20__ minutes.
[2024-02-21] MEDS: metFORMIN HCl ER 500 MG TAB.ER.24H 1000 MG PO (16:14)
[2024-02-21 20:00] VITALS: BP 135/76; PULSE 88; RESP 16; TEMP 36.5; O2SAT 95
[2024-02-21] MEDS: Insulin Glargine,Hum.rec.anlog 100 UNIT/ML 10 ML VIAL 20 UNIT SUBCUT (20:21)
[2024-02-21] MEDS: lamoTRIgine 100 MG TABLET 150 MG PO (20:22)
[2024-02-21] MEDS: traZODone HCL 50 MG TABLET PO ×2 (20:23→23:59)
[2024-02-21] MEDS: hydrOXYzine HCL 25 MG TABLET PO (23:59)
[2024-02-22] MEDS: Levothyroxine Sodium 150 MCG TABLET PO (06:33)
[2024-02-22 07:00] LABS: Glucose, Whole Blood 109 mg/dL (60-115)
[2024-02-22 08:00] VITALS: BP 116/58; PULSE 81; RESP 18; TEMP 36.4; O2SAT 98
[2024-02-22] MEDS: Memantine HCl 5 MG TABLET PO ×2 (09:24→20:43)
[2024-02-22] MEDS: Sertraline HCL 50 MG TABLET PO (09:24)
--- NOTE | 2024-02-22 11:05 | P.PNPSI_ITS ---
Subjective Subjective Date of Service: 02/22/24 Reason For Visit: crisis Subjective Notes: Conditional Voluntary Interim History: Pt slept through the night. He denies any concerns, pleasant on approach. [place] protective of female peers, but not harmful. No behavioral concerns. NO SI/HI. No overt psychosis or delusions. Review of Systems Review of Systems Unremarkable Yes all other systems are reviewed and are negative and unobtainable due to endotracheal tube Constitutional: Reports as per HPI Eyes: Reports as per HPI Reports as per HPI Cardiovascular: Reports as per HPI Respiratory: Reports as per HPI Gastrointestinal: Reports as per HPI Genitourinary: Reports as per HPI Musculoskeletal: Reports as per HPI Skin/Breast: Reports as per HPI Reports as per HPI Psychiatric: Reports as per HPI Endocrine: Reports as per HPI Hematologic/Lymphatic: Reports as per HPI Allergic/Immunologic: Reports as per HPI Mental Status Exam Mental Status Exam Patient Appearance: Well Grooomed and Appropriate Patient Orientation: Person and Situation Level of Consciousness: Awake and Appropriate Patient Behavior: Guarded and Passive Mood Description: Withdrawn Affect Description: Calm Patient Cognition Impaired: Yes Ability to Follow Directions: Good Speech Pattern: Clear 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: Mcfp Impaired Diagnostics Vital Signs (24Hr): Vital Signs - 24 hr 02/21/24 20:00 02/22/24 08:00 Temperature 97.7 F 97.6 F Pulse Rate 88 81 Respiratory Rate 16 18 Blood Pressure 135/76 116/58 L Pulse Oximetry 95 98 Oxygen Delivery Method Room Air Room Air BMI result Body Mass Index 31.8 Labs 09/10/23 20:00 02/20/24 08:38 Labs: Laboratory Results - last 48 hr 02/21/24 02/22/24 05:45 06:46 POC Glucose 121 H 109 Imaging Radiology Impressions: ITS Impressions Brain MRI 09/19/23 20:33 IMPRESSION: 1. No demonstrated acute intracranial abnormalities. 2. Chronic mild to moderate nonspecific white matter changes, most notably in the deep white matter of the right frontal lobe. Mild to moderate generalized cerebral volume loss. Medications Medications Current Medications Acetaminophen (Acetaminophen 325 Mg Tablet) 650 mg PO Q6H PRN PRN Reason: Headache/Pain Mild Scale (1-3) Last Admin: 01/01/24 08:45 Dose: 650 mg Al Hydroxide/Mg Hydroxide (Magnesium Hydrox/Alum Hydrox 30 Ml Oral.Susp) 30 ml PO Q6H PRN PRN Reason: Heartburn/Nausea Last Admin: 11/27/23 10:48 Dose: 30 ml Aripiprazole (Aripiprazole Er 300 Mg Suser.Syr) 300 mg IM Q28D@0900 [facility] Last Admin: 02/05/24 10:14 Dose: 300 mg Benzocaine (Throat Lozenge, Medicated Lozenge) 1 lozenge MUCOUS MEM Q2H PRN PRN Reason: Sore Throat Last Admin: 12/30/23 20:59 Dose: 1 lozenge Benztropine Mesylate (Benztropine Mesylate 0.5 Mg Tablet) 0.5 mg PO TID PRN PRN Reason: Extrapyramidal Effects Glucose (Glucose Gel 15 Gm Gel..Gram.) 15 gm PO Q15M PRN; Protocol PRN Reason: per Hypoglycemia Standing Ord. Guaifenesin/Dextromethorphan (Guaifenesin Dm 100/10/5 Ml 5 Ml Syrup) 5 ml PO Q4H PRN PRN Reason: Cough Last Admin: 01/06/24 22:48 Dose: 5 ml Hydroxyzine HCl (Hydroxyzine Hcl 25 Mg Tablet) 25 mg PO Q6H PRN PRN Reason: Anxiety Last Admin: 02/21/24 23:59 Dose: 25 mg Dextrose (D10) 250 mls @ 750 mls/hr IV Q15M PRN; Protocol PRN Reason: per Hypoglycemia Standing Ord. Insulin Glargine (Insulin Glargine,Hum.Rec.Anlog 100 Unit/Ml 10 Ml Vial) 20 unit SUBCUT BEDTIME [facility] Last Admin: 02/21/24 20:21 Dose: 20 unit Lamotrigine (Lamotrigine 100 Mg Tablet) 150 mg PO BEDTIME [facility] Last Admin: 02/21/24 20:22 Dose: 150 mg Levothyroxine Sodium (Levothyroxine Sodium 150 Mcg Tablet) 150 mcg PO DAILY@0630 [facility] Last Admin: 02/22/24 06:33 Dose: 150 mcg Magnesium Hydroxide (Milk Of Magnesia 30 Ml Oral.Susp) 30 ml PO DAILY PRN PRN Reason: Constipation Memantine (Memantine Hcl 5 Mg Tablet) 5 mg PO BID [facility] Last Admin: 02/22/24 09:24 Dose: 5 mg Metformin HCl (Metformin Hcl Er 500 Mg Tab.Er.24h) 1,000 mg PO DAILY@1700 [facility] Last Admin: 02/21/24 16:14 Dose: 1,000 mg Ondansetron HCl (Ondansetron Odt 8 Mg Tab.Rapdis) 8 mg TRANSLINGU Q8H PRN PRN Reason: Nausea and Vomiting Last Admin: 02/17/24 10:06 Dose: 8 mg Sertraline HCl (Sertraline Hcl 50 Mg Tablet) 50 mg PO DAILY [facility] Last Admin: 02/22/24 09:24 Dose: 50 mg Simethicone (Simethicone 80 Mg Tab.Chew) 80 mg PO QIDWMHS PRN PRN Reason: Gas Trazodone HCl (Trazodone Hcl 50 Mg Tablet) 50 mg PO BEDTIME MRX1 PRN PRN Reason: Insomnia Last Admin: 02/21/24 23:59 Dose: 50 mg Allergies Allergies Allergy/AdvReac Type Severity Reaction Status Date / Time amoxicillin [AMOXICILLIN] Allergy Mild VOMITING/ABD Verified 09/10/23 19:44 PAIN Assessment & Plan Assessment & Plan (1) Schizoaffective disorder: Status: Acute Code(s): F25.9 - Schizoaffective disorder, unspecified (2) Hypothyroidism: Status: Acute Code(s): E03.9 - Hypothyroidism, unspecified (3) Type 2 diabetes mellitus: Status: Acute Code(s): E11.9 - Type 2 diabetes mellitus without complications (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 Plan: CV 15 minute safety checks Continue home medications: Haldol 10mg PO daily Synthroid 200mcg PO daily Obtain labs; A1C/POCs Obtain collateral from sister Obtain records from last hospitalization. MOCA Referral for [facility] services if patient is agreeable. encourage medication compliance;consider VARGAS discharge planning 09/11: Elevated fasting blood sugar elevated hemoglobin A1c 9.2 med consult placed put in point of care needed will start metformin Would benefit from clarity over recent hospitalization what this were done details regarding treatment continue Haldol unclear if patient has Healthcare proxy his [place] was low slowed cognition with poor details in depth at times during blankly regarding making judgments Unclear if any of this relates to past coma or 2 hypothyroidism. He does seem more impaired than when last seen unclear when last imaging was. Continue Haldol sitter neuro indira involvement regarding diagnostic picture. Patient does remain paranoid blunted suspicious apathetic. He might benefit from longer- term placement if available and appropriate at a later time involved [facility] involvement would be quite helpful 09/12: cont haldol get records ? hcp ? start antidep unclear hx 09/13: Keeping to self. More talkative today. Pt concerned he will be transferred to [facility]. Pt stated, The paper I signed yesterday. Are you going to send me back to the last hospital? That place was horrible . Pt was educated he signed a release of information with Dr. Gonzalez to obtain records from [facility]. Pt was given a copy of the release he signed. Despite this, pt continues to be anxious about being transferred. Pt denies SI/HI/VH/AH. 09/14: Keeping to self. active on unit. showered. Pt reports feeling alright today; pt reports he is worried about where I'm going to go . Pt continues concerned he will be transferred to [facility]. Pt denies SI/HI/VH/AH. 09/15:Pt reports feeling alright today; pt continues to report he is worried about where I'm going to go . Responding with brief responses. Guarded. Observed standing in one place for a long period of time. Appears confused. Pt denies SI/HI/VH/AH. T/W spoke to patient's sister, Ros, with patients verbal consent. Ros reports concerns regarding patients ability to make decisions regarding his mental and physical health. She plans on contacting legal advice on obtaining guardianship of patient. 09/16:Patient's presents similar to yesterday's presentation. Responding with brief responses. Guarded. Observed standing in one place for a long period of time, when asked what he is doing, pt stated, I don't know . Pt reports he plans on contacting his sister today and try to convince her for me to stay there . Pt denies SI/HI/VH/AH. Continue current tx plan. 09/17: brief responses. Guarded. Continues to rehabilitation services coordinator one place for a long period of time, when asked what he is doing, pt stated, I don't know . Pt denies SI/HI/VH/AH. T/W and Dr. Gonzalez spoke to patient's sister, Ros. Ros stated being [facility] HCP and plans on finding document. She plans on coming to the hospital on Saturday to be present for [facility] intake. 09/21: No changes 09/22:Patient flat apathetic difficult insight and judgment his sister is healthcare proxy if needed patient is accepting medical treatment Referral to [facility] 09/23:Considers starting Haldol Decanoate patient is agreeable superficially difficulty with exec fx was seen [facility] 09/24:Pt seen in f/u mood flat dysphoric difficulty engaging in conversation preoccupied with thought he wont be living with family thing slowed apathetic no clear response with namenda ? some improvement inc lamictal start low dose sertraline inc lamictal ck tsh 09/25:Start Abilify as augmentation with Haldol see if can be more stimulating regarding depressed mood apathetic limited engagement sertraline 50 mg Lamictal 25 b.i.d. referral to [facility] which would have structure unclear if patient can engage with this he remains quite depressed has delusional beliefs regarding housing and that things have been done he has repeatedly tried to reach out to his sister denies active SI needs much help dressing talking with others encouragement to eat severe thought blocking Abilify might be more stimulating than Haldol which can be more dulling 09/26:Abilify started sertraline Lamictal encouraged step-down to [facility] encourage reality orientation denies active SI 09/27: Continue current regimen and plans 09/28: Continue current regimen and plans. 09/29: Referral to [facility] increase Abilify to 5 mg daily eventually try and taper Haldol sertraline 50 mg daily 09/30:Increase Abilify to 10 mg lower Haldol to 7 mg continue sertraline and Lamictal 10/01:Abilify increased to 10 mg continue to taper Haldol sertraline 100 mg Lamictal increased to 75 mg patient apathetic withdrawn difficulty with placement some paranoia continues difficulty with decision making at times. Not physically aggressive internally preoccupied seems somewhat improved with Abilify sertraline Continue discharge planning 10/02:Patient somewhat blunted flat slowed thinking during the day times staring. Change Abilify to 10 mg at bedtime. Scheduled Haldol will lowered to 2.5 mg Continue sertraline 100 mg Namenda 5 b.i.d. 10/03:Haldol discontinued modafinil low-dose monitor for psychosis or agitation continue discharge planning 10/06: May need to firm healthcare proxy calls have been placed to sister to try to help in discharge planning. Referrals made. Patient cooperative with care 10/07:Pharmacy ordering Abilify maintain a increase modafinil 100 mg patient remains flat passive depressed some improvement noted no current paranoia noted continue discharge planning no current safe discharge plan 10/08: Increase Lamictal 100 mg Abilify Maintena 400 mg hold modafinil unclear if was overly stimulating patient continues to present internally preoccupied. 10/09:Healthcare proxy invoked discharge planning continue Lamictal Abilify pending maintain a 10/10:Healthcare proxy invoked new CV signed discharge planning. 10/11 keep same treatment 10/12 keep same treatment 10/13: Continue plan of care Lamictal Abilify discharge planning sertraline 10/14: stable. continue current mgmt. 10/15: stable. continue current mgmt. 10/16: stable presentation. continue current mgmt. 10/17: as for yesterday. 10/18: no changes. 10/19: stabel, safe. no change. 10/20: no change in presentation. calm, cooperative. active on unit, social with select peers, attending groups. Pt reports feeling alright . denies SI/HI/VH/AH. Social work waiting to hear from possible placement location. Continue current tx plan. 10/21: continue current tx plan. awaiting placement. 10/22: calm, cooperative. active on unit, social with select peers, attending groups. Pt reports feeling good ; pt stated, I'm waiting to see where I'm going . denies SI/HI/VH/AH. Showered with encouragement. 10/23: continue current tx plan. 10/24: calm, cooperative. active on unit, social with select peers, attending groups. Pt reports feeling good ; pt stated, I just want a place to live . 10/25- likely at baseline for him- CTP 10/26 CTP likely needs placement 10/27: continue current tx plan. awaiting placement. 10/28: Similar to yesterday. No change in presentation. 10/29: Pt reports feeling good ;pt stated, just waiting for a place to live . denies any issues at this time. 10/30: calm, cooperative. active on unit, social with select peers, attending groups. Pt reports feeling worried about where I am going to live . denies any issues at this time. 10/21: no change in presentation. continue current tx plan. 11/01: continue current management and treatment plan. 11/02: Continue current management and treatment plan. 11/03: Continue current management and treatment plan. 11/04: Active on unit. calm, cooperative. social with select peers, attending groups. denies any issues at this time. He reports sleeping well. Pt reports he would be interested in applying for [facility] services; social work aware. 11/05: Active on unit. calm, cooperative. social with select peers, attending groups. denies any issues at this time. Pt reports feeling okay ; he reports anxiety regarding placement. Continue current tx plan. 11/07/23 [facility] referral has appropriate concerns re living stuation cont abilify lamictal 11/08/23 Pt cooperative with care d/c planning working with cont d/c planning cont lamictal abilify 11/12/23 Patient increasingly despairing aware of no clear discharge plan periods needs cuing for much functioning limited social engaged needs help regarding diabetes and medication compliance reportedly had been rejected by multiple rest homes patient not threatening intermittently hopeless helpless very limited family contact at this time 11/13/23 pt flat depressed hopeless helpless unable to fx without structure 11/15 continue tx. 11/16 continue tx. 11/18/2023 Continue plan of care referral to [facility] TSH low will decrease levothyroxine 11/19/23 Pt flat dysphor ic inc hopeless helpless lamictal 150 hs dec levothyroxine 150 d/c planning cont 11/20/23 lamictal inc d/c planning [facility] referral [facility]23 [facility] patient cooperative with care gets despairing at times regarding lack of family support problematic discharge planning in relationship to finding suitable structured place to live 12/02: Social with peers. Per nursing, pt did not sleep last night. Pt reports he did not sleeping because he wasn't tired but feel okay ; ordered Ativan 1mg PO bedtime for tonight, pt aware. 12/03: In bed sleeping, pt reports he is catching up on sleep from the night before. Calm, cooperative. T/W and wind turbine sheet metal worker, Billie, with pt to discuss possibly going to the [facility]. Pt reports he would like to call his sister and speak to her before deciding. DC Ativan. 12/04: Active on unit, social with peers. attending groups. T/W and wind turbine sheet metal worker, Billie, met with pt to discuss discharge plan. Pt reports he doesn't know if he would want to go to a homeless custodial; he states he would rather live on the street because I've done it before . Pt encouraged to consider benefits of going to a custodial with the winter months coming; he agreed to doing phone intake with director social service on Saturday with [facility]. 12/05: Pt presents similar to yesterday. Continues to perseverate about [facility] being a custodial and not a program; He continues to agree to do phone intake on Saturday. Discussed VARGAS, pt reports he want time to consider d/t not liking needles . 12/08: Pt had phone interview with [facility], however, after multiple attempts at calling them, no one at [facility] picked up the phone to conduct interview. wind turbine sheet metal worker to get into contact with them again. Pt denies any issues at this time. 12/09: Active on unit, social with peers. Pt denies any issues at this time. Patient agreed to receiving Abilify Maintena; risks/benefits reviewed. Waiting on placement. 12/10: Patient received Abilify Maintena yesterday. He denies any side effects. Pleasant. Waiting on placement. 12/11: continue current tx plan. 12/12: similar to days prior. waiting on placement. continue current tx plan. 12/13: appearing more depressed or demoralized. notes lots of people come and go. continue current mgmt. 12/14: same as for yesterday: find me a place to live? continue current mgmt. 12/15: out and about more. otherwise stable. continue current mgmt. 12/16: continue current tx plan. 12/17: continue current tx plan. 12/18: awaiting placement. denies any issues. 12/19: Pt reports feeling alright ; Social work continues to work on placement. Pt denies any issues at this time. Pt reports sleeping well. 12/20: Continue plan of care 12/21: Continue plan of care 12/22: continue current tx plan. 12/23: continue tx plan. 12/24: continue tx plan. 12/25: similar to days prior. waiting on placement. 12/26: Continue current tx plan. 12/27: Continue current management and treatment plan. 12/28: Continue current management and treatment plan. 12/29: In bed, tested positive for Covid. Vomited x1 per nursing. Pt reports feeling okay ; sleeping most of shift. Continue current tx plan. 12/30: Pt reports feeling okay ; continues on isolation d/t being Covid positive. Utilizing IPad. Pt reports sleeping well. denies SI/HI/VH/AH. Has not vomited today. 12/31: Pt reports feeling alright ; pt stated, I still have a stuffy nose, cough and headache but I'm starting to feel better . continues on isolation. denies other issues at this time. Continue current tx plan. 01/01: pt reports covid symptoms are improving. continues waiting on placement. 01/02: Continue tx plan. 01/05/24: no changes. 01/05: Active on unit. Pt reports feeling okay today; denies any issues at this time. pt had meeting with [facility] to be placed on list for temporary placement; pt declined. Dr. Gonzalez to speak to patient regarding this. 01/06: Discussed placement; pt reports he is thinking about saying yes to the motel . pt reports he does not believe his sister or director social service that he has money saved in the bank. Pt believes if he left to go to the motel he would be stuck there with no money . Social work to discuss with pt. 01/07: Active on unit. social with peers. denies any issues. Pt reports feeling okay ; reports he is still thinking about where he will go after discharge. 01/08: waiting on placement. continue current tx plan. 01/09: Patient continues to wait on placement. 119: Continue current management and treatment plan. 03/13: Continue current management and treatment plan. 01/12: waiting on placement. 01/13: continue current tx plan. 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 noted on the unit to fixate on certain female peers. 01/24 continues with impaired insight/judgement- risk to others requiring inpatient and 01/25 given poor insight and stalking behavior continues to need inpt level of stay 02/01/24 Patient with odd affect feels safe in this setting requires structured setting given neurocognitive behavioral difficulties 02/02/24 Pt flat blunted not aggressive but can be intrusive needs help with medication and cueing 02/09/2024: Awaiting placement. Without appropriate placement, would lead to rapid decompensation and inability to care for self. 02/20/24 continue tx. 02/20 continue tx. 02/21 continue tx. Reason for continued inpatient stay Substantial Risk for: inability to function Time Spent With Patient Time: Total time managing care of this patient today ____ minutes.
[2024-02-22] MEDS: metFORMIN HCl ER 500 MG TAB.ER.24H 1000 MG PO (16:42)
[2024-02-22 20:00] VITALS: BP 144/81; PULSE 77; RESP 18; TEMP 37; O2SAT 97
[2024-02-22] MEDS: Insulin Glargine,Hum.rec.anlog 100 UNIT/ML 10 ML VIAL 20 UNIT SUBCUT (20:43)
[2024-02-22] MEDS: lamoTRIgine 100 MG TABLET 150 MG PO (20:43)
[2024-02-22] MEDS: traZODone HCL 50 MG TABLET PO (20:43)
[2024-02-23] MEDS: traZODone HCL 50 MG TABLET PO ×2 (00:21→20:27)
[2024-02-23] MEDS: Levothyroxine Sodium 150 MCG TABLET PO (06:08)
[2024-02-23 06:33] LABS: Glucose, Whole Blood 135 mg/dL (60-115)
[2024-02-23] MEDS: Sertraline HCL 50 MG TABLET PO (09:29)
[2024-02-23] MEDS: Memantine HCl 5 MG TABLET PO ×2 (09:29→20:27)
--- NOTE | 2024-02-23 12:08 | P.PNPSI_ITS ---
Subjective Subjective Date of Service: 02/23/24 Reason For Visit: crisis Interim History: Pt slept through the night. He denies any concerns, pleasant on approach. [place] protective of female peers, but not harmful. No behavioral concerns. NO SI/HI. No overt psychosis or delusions. Review of Systems Review of Systems Unremarkable Yes all other systems are reviewed and are negative and unobtainable due to endotracheal tube Constitutional: Reports as per HPI Eyes: Reports as per HPI Reports as per HPI Cardiovascular: Reports as per HPI Respiratory: Reports as per HPI Gastrointestinal: Reports as per HPI Genitourinary: Reports as per HPI Musculoskeletal: Reports as per HPI Skin/Breast: Reports as per HPI Reports as per HPI Psychiatric: Reports as per HPI Endocrine: Reports as per HPI Hematologic/Lymphatic: Reports as per HPI Allergic/Immunologic: Reports as per HPI Mental Status Exam Mental Status Exam Patient Appearance: Well Grooomed and Appropriate Patient Orientation: Person and Situation Level of Consciousness: Awake and Appropriate Patient Behavior: Guarded and Passive Mood Description: Withdrawn Affect Description: Calm Patient Cognition Impaired: Yes Ability to Follow Directions: Good Speech Pattern: Clear 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 No demonstrated acute intracranial abnormalities. 2. Chronic mild to moderate nonspecific white matter changes, most notably in the deep white matter of the right frontal lobe. Mild to moderate generalized cerebral volume loss. Medications Medications Current Medications Acetaminophen (Acetaminophen 325 Mg Tablet) 650 mg PO Q6H PRN PRN Reason: Headache/Pain Mild Scale (1-3) Last Admin: 01/01/24 08:45 Dose: 650 mg Al Hydroxide/Mg Hydroxide (Magnesium Hydrox/Alum Hydrox 30 Ml Oral.Susp) 30 ml PO Q6H PRN PRN Reason: Heartburn/Nausea Last Admin: 11/27/23 10:48 Dose: 30 ml Aripiprazole (Aripiprazole Er 300 Mg Suser.Syr) 300 mg IM Q28D@0900 [facility] Last Admin: 02/05/24 10:14 Dose: 300 mg Benzocaine (Throat Lozenge, Medicated Lozenge) 1 lozenge MUCOUS MEM Q2H PRN PRN Reason: Sore Throat Last Admin: 12/30/23 20:59 Dose: 1 lozenge Benztropine Mesylate (Benztropine Mesylate 0.5 Mg Tablet) 0.5 mg PO TID PRN PRN Reason: Extrapyramidal Effects Glucose (Glucose Gel 15 Gm Gel..Gram.) 15 gm PO Q15M PRN; Protocol PRN Reason: per Hypoglycemia Standing Ord. Guaifenesin/Dextromethorphan (Guaifenesin Dm 100/10/5 Ml 5 Ml Syrup) 5 ml PO Q4H PRN PRN Reason: Cough Last Admin: 01/06/24 22:48 Dose: 5 ml Hydroxyzine HCl (Hydroxyzine Hcl 25 Mg Tablet) 25 mg PO Q6H PRN PRN Reason: Anxiety Last Admin: 02/21/24 23:59 Dose: 25 mg Dextrose (D10) 250 mls @ 750 mls/hr IV Q15M PRN; Protocol PRN Reason: per Hypoglycemia Standing Ord. Insulin Glargine (Insulin Glargine,Hum.Rec.Anlog 100 Unit/Ml 10 Ml Vial) 20 unit SUBCUT BEDTIME [facility] Last Admin: 02/22/24 20:43 Dose: 20 unit Lamotrigine (Lamotrigine 100 Mg Tablet) 150 mg PO BEDTIME [facility] Last Admin: 02/22/24 20:43 Dose: 150 mg Levothyroxine Sodium (Levothyroxine Sodium 150 Mcg Tablet) 150 mcg PO DAILY@0630 [facility] Last Admin: 02/23/24 06:08 Dose: 150 mcg Magnesium Hydroxide (Milk Of Magnesia 30 Ml Oral.Susp) 30 ml PO DAILY PRN PRN Reason: Constipation Memantine (Memantine Hcl 5 Mg Tablet) 5 mg PO BID [facility] Last Admin: 02/23/24 09:29 Dose: 5 mg Metformin HCl (Metformin Hcl Er 500 Mg Tab.Er.24h) 1,000 mg PO DAILY@1700 [facility] Last Admin: 02/22/24 16:42 Dose: 1,000 mg Ondansetron HCl (Ondansetron Odt 8 Mg Tab.Rapdis) 8 mg TRANSLINGU Q8H PRN PRN Reason: Nausea and Vomiting Last Admin: 02/17/24 10:06 Dose: 8 mg Sertraline HCl (Sertraline Hcl 50 Mg Tablet) 50 mg PO DAILY MANAS Last Admin: 02/23/24 09:29 Dose: 50 mg Simethicone (Simethicone 80 Mg Tab.Chew) 80 mg PO QIDWMHS PRN PRN Reason: Gas Trazodone HCl (Trazodone Hcl 50 Mg Tablet) 50 mg PO BEDTIME MRX1 PRN PRN Reason: Insomnia Last Admin: 02/23/24 00:21 Dose: 50 mg Allergies Allergies Allergy/AdvReac Type Severity Reaction Status Date / Time amoxicillin [AMOXICILLIN] Allergy Mild VOMITING/ABD Verified 09/10/23 19:44 PAIN Assessment & Plan Assessment & Plan (1) Schizoaffective disorder: Status: Acute Code(s): F25.9 - Schizoaffective disorder, unspecified (2) Hypothyroidism: Status: Acute Code(s): E03.9 - Hypothyroidism, unspecified (3) Type 2 diabetes mellitus: Status: Acute Code(s): E11.9 - Type 2 diabetes mellitus without complications (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 Plan: CV 15 minute safety checks Continue home medications: Haldol 10mg PO daily Synthroid 200mcg PO daily Obtain labs; A1C/POCs Obtain collateral from sister Obtain records from last hospitalization. MOCA Referral for [facility] services if patient is agreeable. encourage medication compliance;consider VARGAS discharge planning 09/11: Elevated fasting blood sugar elevated hemoglobin A1c 9.2 med consult placed put in point of care needed will start metformin Would benefit from clarity over recent hospitalization what this were done details regarding treatment continue Haldol unclear if patient has Healthcare proxy his [place] was low slowed cognition with poor details in depth at times during blankly regarding making judgments Unclear if any of this relates to past coma or 2 hypothyroidism. He does seem more impaired than when last seen unclear when last imaging was. Continue Haldol sitter neuro indira involvement regarding diagnostic picture. Patient does remain paranoid blunted suspicious apathetic. He might benefit from longer- term placement if available and appropriate at a later time involved [facility] involvement would be quite helpful 09/12: cont haldol get records ? hcp ? start antidep unclear hx 09/13: Keeping to self. More talkative today. Pt concerned he will be transferred to [facility]. Pt stated, The paper I signed yesterday. Are you going to send me back to the last hospital? That place was horrible . Pt was educated he signed a release of information with Dr. Gonzalez to obtain records from [facility]. Pt was given a copy of the release he signed. Despite this, pt continues to be anxious about being transferred. Pt denies SI/HI/VH/AH. 09/14: Keeping to self. active on unit. showered. Pt reports feeling alright today; pt reports he is worried about where I'm going to go . Pt continues concerned he will be transferred to [facility]. Pt denies SI/HI/VH/AH. 09/15:Pt reports feeling alright today; pt continues to report he is worried about where I'm going to go . Responding with brief responses. Guarded. Observed standing in one place for a long period of time. Appears confused. Pt denies SI/HI/VH/AH. T/W spoke to patient's sister, Ros, with patients verbal consent. Ros reports concerns regarding patients ability to make decisions regarding his mental and physical health. She plans on contacting legal advice on obtaining guardianship of patient. 09/16:Patient's presents similar to yesterday's presentation. Responding with brief responses. Guarded. Observed standing in one place for a long period of time, when asked what he is doing, pt stated, I don't know . Pt reports he plans on contacting his sister today and try to convince her for me to stay there . Pt denies SI/HI/VH/AH. Continue current tx plan. 09/17: brief responses. Guarded. 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 Pt denies SI/HI/VH/AH. T/W and Dr. Gonzalez spoke to patient's sister, Ros. Ros stated being [facility] HCP and plans on finding document. She plans on coming to the hospital on Saturday to be present for [facility] intake. 09/21: No changes 09/22:Patient flat apathetic difficult insight and judgment his sister is healthcare proxy if needed patient is accepting medical treatment Referral to [facility] 09/23:Considers starting Haldol Decanoate patient is agreeable superficially difficulty with exec fx was seen [facility] 09/24:Pt seen in f/u mood flat dysphoric difficulty engaging in conversation preoccupied with thought he wont be living with family thing slowed apathetic no clear response with namenda ? some improvement inc lamictal start low dose sertraline inc lamictal ck tsh 09/25:Start Abilify as augmentation with Haldol see if can be more stimulating regarding depressed mood apathetic limited engagement sertraline 50 mg Lamictal 25 b.i.d. referral to [facility] which would have structure unclear if patient can engage with this he remains quite depressed has delusional beliefs regarding housing and that things have been done he has repeatedly tried to reach out to his sister denies active SI needs much help dressing talking with others encouragement to eat severe thought blocking Abilify might be more stimulating than Haldol which can be more dulling 09/26:Abilify started sertraline Lamictal encouraged step-down to [facility] encourage reality orientation denies active SI 09/27: Continue current regimen and plans 09/28: Continue current regimen and plans. 09/29: Referral to [facility] increase Abilify to 5 mg daily eventually try and taper Haldol sertraline 50 mg daily 09/30:Increase Abilify to 10 mg lower Haldol to 7 mg continue sertraline and Lamictal 10/01:Abilify increased to 10 mg continue to taper Haldol sertraline 100 mg Lamictal increased to 75 mg patient apathetic withdrawn difficulty with placement some paranoia continues difficulty with decision making at times. Not physically aggressive internally preoccupied seems somewhat improved with Abilify sertraline Continue discharge planning 10/02:Patient somewhat blunted flat slowed thinking during the day times staring. Change Abilify to 10 mg at bedtime. Scheduled Haldol will lowered to 2.5 mg Continue sertraline 100 mg Namenda 5 b.i.d. 10/03:Haldol discontinued modafinil low-dose monitor for psychosis or agitation continue discharge planning 10/06: May need to firm healthcare proxy calls have been placed to sister to try to help in discharge planning. Referrals made. Patient cooperative with care 10/07:Pharmacy ordering Abilify maintain a increase modafinil 100 mg patient remains flat passive depressed some improvement noted no current paranoia noted continue discharge planning no current safe discharge plan 10/08: Increase Lamictal 100 mg Abilify Maintena 400 mg hold modafinil unclear if was overly stimulating patient continues to present internally preoccupied. 10/09:Healthcare proxy invoked discharge planning continue Lamictal Abilify pending maintain a 10/10:Healthcare proxy invoked new CV signed discharge planning. 10/11 keep same treatment 10/12 keep same treatment 10/13: Continue plan of care Lamictal Abilify discharge planning sertraline 10/14: stable. continue current mgmt. 10/15: stable. continue current mgmt. 10/16: stable presentation. continue current mgmt. 10/17: as for yesterday. 10/18: no changes. 10/19: stabel, safe. no change. 10/20: no change in presentation. calm, cooperative. active on unit, social with select peers, attending groups. Pt reports feeling alright . denies SI/HI/VH/AH. Social work waiting to hear from possible placement location. Continue current tx plan. 10/21: continue current tx plan. awaiting placement. 10/22: calm, cooperative. active on unit, social with select peers, attending groups. Pt reports feeling good ; pt stated, I'm waiting to see where I'm going . denies SI/HI/VH/AH. Showered with encouragement. 10/23: continue current tx plan. 10/24: calm, cooperative. active on unit, social with select peers, attending groups. Pt reports feeling good ; pt stated, I just want a place to live . 10/25- likely at baseline for him- CTP 10/26 CTP likely needs placement 10/27: continue current tx plan. awaiting placement. 10/28: Similar to yesterday. No change in presentation. 10/29: Pt reports feeling good ;pt stated, just waiting for a place to live . denies any issues at this time. 10/30: calm, cooperative. active on unit, social with select peers, attending groups. Pt reports feeling worried about where I am going to live . denies any issues at this time. 10/21: no change in presentation. continue current tx plan. 11/01: continue current management and treatment plan. 11/02: Continue current management and treatment plan. 11/03: Continue current management and treatment plan. 11/04: Active on unit. calm, cooperative. social with select peers, attending groups. denies any issues at this time. He reports sleeping well. Pt reports he would be interested in applying for [facility] services; social work aware. 11/05: Active on unit. calm, cooperative. social with select peers, attending groups. denies any issues at this time. Pt reports feeling okay ; he reports anxiety regarding placement. Continue current tx plan. 11/07/23 [facility] referral has appropriate concerns re living stuation cont abilify lamictal 11/08/23 Pt cooperative with care d/c planning working with cont d/c planning cont lamictal abilify 11/12/23 Patient increasingly despairing aware of no clear discharge plan periods needs cuing for much functioning limited social engaged needs help regarding diabetes and medication compliance reportedly had been rejected by multiple rest homes patient not threatening intermittently hopeless helpless very limited family contact at this time 11/13/23 pt flat depressed hopeless helpless unable to fx without structure 11/15 continue tx. 11/16 continue tx. 11/18/2023 Continue plan of care referral to [facility] TSH low will decrease levothyroxine 11/19/23 Pt flat dysphor ic inc hopeless helpless lamictal 150 hs dec levothyroxine 150 d/c planning cont 11/20/23 lamictal inc d/c planning dmh referral 12/02/2023 Continue Lamictal Abilify patient cooperative with care gets despairing at times regarding lack of family support problematic discharge planning in relationship to finding suitable structured place to live 12/02: Social with peers. Per nursing, pt did not sleep last night. Pt reports he did not sleeping because he wasn't tired but feel okay ; ordered Ativan 1mg PO bedtime for tonight, pt aware. 12/03: In bed sleeping, pt reports he is catching up on sleep from the night before. Calm, cooperative. T/W and utility worker production, Billie, with pt to discuss possibly going to the [facility]. Pt reports he would like to call his sister and speak to her before deciding. DC Ativan. 12/04: Active on unit, social with peers. attending groups. T/W and utility worker production, Billie, met with pt to discuss discharge plan. Pt reports he doesn't know if he would want to go to a homeless snf; he states he would rather live on the street because I've done it before . Pt encouraged to consider benefits of going to a snf with the winter months coming; he agreed to doing phone intake with social service manager on Saturday with [facility]. 12/05: Pt presents similar to yesterday. Continues to perseverate about [facility] being a snf and not a program; He continues to agree to do phone intake on Saturday. Discussed VARGAS, pt reports he want time to consider d/t not liking needles . 12/08: Pt had phone interview with [facility], however, after multiple attempts at calling them, no one at [facility] picked up the phone to conduct interview. utility worker production to get into contact with them again. Pt denies any issues at this time. 12/09: Active on unit, social with peers. Pt denies any issues at this time. Patient agreed to receiving Abilify Maintena; risks/benefits reviewed. Waiting on placement. 12/10: Patient received Abilify Maintena yesterday. He denies any side effects. Pleasant. Waiting on placement. 12/11: continue current tx plan. 12/12: similar to days prior. waiting on placement. continue current tx plan. 12/13: appearing more depressed or demoralized. notes lots of people come and go. continue current mgmt. 12/14: same as for yesterday: find me a place to live? continue current mgmt. 12/15: out and about more. otherwise stable. continue current mgmt. 12/16: continue current tx plan. 12/17: continue current tx plan. 12/18: awaiting placement. denies any issues. 12/19: Pt reports feeling alright ; Social work continues to work on placement. Pt denies any issues at this time. Pt reports sleeping well. 12/20: Continue plan of care 12/21: Continue plan of care 12/22: continue current tx plan. 12/23: continue tx plan. 12/24: continue tx plan. 12/25: similar to days prior. waiting on placement. 12/26: Continue current tx plan. 12/27: Continue current management and treatment plan. 12/28: Continue current management and treatment plan. 12/29: In bed, tested positive for Covid. Vomited x1 per nursing. Pt reports feeling okay ; sleeping most of shift. Continue current tx plan. 12/30: Pt reports feeling okay ; continues on isolation d/t being Covid positive. Utilizing IPad. Pt reports sleeping well. denies SI/HI/VH/AH. Has not vomited today. 12/31: Pt reports feeling alright ; pt stated, I still have a stuffy nose, cough and headache but I'm starting to feel better . continues on isolation. denies other issues at this time. Continue current tx plan. 01/01: pt reports covid symptoms are improving. continues waiting on placement. 01/02: Continue tx plan. 01/05/24: no changes. 01/05: Active on unit. Pt reports feeling okay today; denies any issues at this time. pt had meeting with [facility] to be placed on list for temporary placement; pt declined. Dr. Gonzalez to speak to patient regarding this. 01/06: Discussed placement; pt reports he is thinking about saying yes to the motel . pt reports he does not believe his sister or social service manager that he has money saved in the bank. Pt believes if he left to go to the motel he would be stuck there with no money . Social work to discuss with pt. 01/07: Active on unit. social with peers. denies any issues. Pt reports feeling okay ; reports he is still thinking about where he will go after discharge. 01/08: waiting on placement. continue current tx plan. 01/09: Patient continues to wait on placement. 119: Continue current management and treatment plan. 03/13: Continue current management and treatment plan. 01/12: waiting on placement. 01/13: continue current tx plan. 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 noted on the unit to fixate on certain female peers. 01/24 continues with impaired insight/judgement- risk to others requiring inpatient and 01/25 given poor insight and stalking behavior continues to need inpt level of stay 02/01/24 Patient with odd affect feels safe in this setting requires structured setting given neurocognitive behavioral difficulties 02/02/24 Pt flat blunted not aggressive but can be intrusive needs help with medication and cueing 02/09/2024: Awaiting placement. Without appropriate placement, would lead to rapid decompensation and inability to care for self. 02/20/24 continue tx. 02/20 continue tx. 02/21 continue tx. 02/22 continue tx. Reason for continued inpatient stay Substantial Risk for: inability to function Time Spent With Patient Time: Total time managing care of this patient today ____ minutes.
[2024-02-23 15:10] VITALS: BP 121/71; PULSE 77; RESP 16; TEMP 37.2; O2SAT 96
[2024-02-23] MEDS: metFORMIN HCl ER 500 MG TAB.ER.24H 1000 MG PO (17:58)
--- NOTE | 2024-02-23 18:26 | P.PNPSI_ITS ---
Subjective Subjective Reason For Visit: crisis Diagnostics Vital Signs (24Hr): Vital Signs - 24 hr 02/22/24 20:00 Temperature 98.6 F Pulse Rate 77 Respiratory Rate 18 Blood Pressure 144/81 H Pulse Oximetry 97 Oxygen Delivery Method Room Air BMI result Body Mass Index 31.8 Labs 09/10/23 20:00 02/20/24 08:38 Labs: Laboratory Results - last 48 hr 02/22/24 02/23/24 06:46 06:14 POC Glucose 109 135 H Imaging Radiology Impressions: ITS Impressions Brain MRI 09/19/23 20:33 IMPRESSION: 1. No demonstrated acute intracranial abnormalities. 2. Chronic mild to moderate nonspecific white matter changes, most notably in the deep white matter of the right frontal lobe. Mild to moderate generalized cerebral volume loss. Medications Medications Current Medications Acetaminophen (Acetaminophen 325 Mg Tablet) 650 mg PO Q6H PRN PRN Reason: Headache/Pain Mild Scale (1-3) Last Admin: 01/01/24 08:45 Dose: 650 mg Al Hydroxide/Mg Hydroxide (Magnesium Hydrox/Alum Hydrox 30 Ml Oral.Susp) 30 ml PO Q6H PRN PRN Reason: Heartburn/Nausea Last Admin: 11/27/23 10:48 Dose: 30 ml Aripiprazole (Aripiprazole Er 300 Mg Suser.Syr) 300 mg IM Q28D@0900 MANAS Last Admin: 02/05/24 10:14 Dose: 300 mg Benzocaine (Throat Lozenge, Medicated Lozenge) 1 lozenge MUCOUS MEM Q2H PRN PRN Reason: Sore Throat Last Admin: 12/30/23 20:59 Dose: 1 lozenge Benztropine Mesylate (Benztropine Mesylate 0.5 Mg Tablet) 0.5 mg PO TID PRN PRN Reason: Extrapyramidal Effects Glucose (Glucose Gel 15 Gm Gel..Gram.) 15 gm PO Q15M PRN; Protocol PRN Reason: per Hypoglycemia Standing Ord. Guaifenesin/Dextromethorphan (Guaifenesin Dm 100/10/5 Ml 5 Ml Syrup) 5 ml PO Q4H PRN PRN Reason: Cough Last Admin: 01/06/24 22:48 Dose: 5 ml Hydroxyzine HCl (Hydroxyzine Hcl 25 Mg Tablet) 25 mg PO Q6H PRN PRN Reason: Anxiety Last Admin: 02/21/24 23:59 Dose: 25 mg Dextrose (D10) 250 mls @ 750 mls/hr IV Q15M PRN; Protocol PRN Reason: per Hypoglycemia Standing Ord. Insulin Glargine (Insulin Glargine,Hum.Rec.Anlog 100 Unit/Ml 10 Ml Vial) 20 unit SUBCUT BEDTIME [facility] Last Admin: 02/22/24 20:43 Dose: 20 unit Lamotrigine (Lamotrigine 100 Mg Tablet) 150 mg PO BEDTIME [facility] Last Admin: 02/22/24 20:43 Dose: 150 mg Levothyroxine Sodium (Levothyroxine Sodium 150 Mcg Tablet) 150 mcg PO DAILY@0630 [facility] Last Admin: 02/23/24 06:08 Dose: 150 mcg Magnesium Hydroxide (Milk Of Magnesia 30 Ml Oral.Susp) 30 ml PO DAILY PRN PRN Reason: Constipation Memantine (Memantine Hcl 5 Mg Tablet) 5 mg PO BID [facility] Last Admin: 02/23/24 09:29 Dose: 5 mg Metformin HCl (Metformin Hcl Er 500 Mg Tab.Er.24h) 1,000 mg PO DAILY@1700 [facility] Last Admin: 02/23/24 17:58 Dose: 1,000 mg Ondansetron HCl (Ondansetron Odt 8 Mg Tab.Rapdis) 8 mg TRANSLINGU Q8H PRN PRN Reason: Nausea and Vomiting Last Admin: 02/17/24 10:06 Dose: 8 mg Sertraline HCl (Sertraline Hcl 50 Mg Tablet) 50 mg PO DAILY [facility] Last Admin: 02/23/24 09:29 Dose: 50 mg Simethicone (Simethicone 80 Mg Tab.Chew) 80 mg PO QIDWMHS PRN PRN Reason: Gas Trazodone HCl (Trazodone Hcl 50 Mg Tablet) 50 mg PO BEDTIME MRX1 PRN PRN Reason: Insomnia Last Admin: 02/23/24 00:21 Dose: 50 mg Allergies Allergies Allergy/AdvReac Type Severity Reaction Status Date / Time amoxicillin [AMOXICILLIN] Allergy Mild VOMITING/ABD Verified 09/10/23 19:44 PAIN Assessment & Plan Assessment & Plan (1) Schizoaffective disorder: Status: Acute Code(s): F25.9 - Schizoaffective disorder, unspecified (2) Hypothyroidism: Status: Acute Code(s): E03.9 - Hypothyroidism, unspecified (3) Type 2 diabetes mellitus: Status: Acute Code(s): E11.9 - Type 2 diabetes mellitus without complications (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 Plan: CV 15 minute safety checks Continue home medications: Haldol 10mg PO daily Synthroid 200mcg PO daily Obtain labs; A1C/POCs Obtain collateral from sister Obtain records from last hospitalization. MOCA Referral for DMH services if patient is agreeable. encourage medication compliance;consider VARGAS discharge planning 09/11: Elevated fasting blood sugar elevated hemoglobin A1c 9.2 med consult placed put in point of care needed will start metformin Would benefit from clarity over recent hospitalization what this were done details regarding treatment continue Haldol unclear if patient has Healthcare proxy his [place] was low slowed cognition with poor details in depth at times during blankly regarding making judgments Unclear if any of this relates to past coma or 2 hypothyroidism. He does seem more impaired than when last seen unclear when last imaging was. Continue Haldol sitter neuro indira involvement regarding diagnostic picture. Patient does remain paranoid blunted suspicious apathetic. He might benefit from longer- term placement if available and appropriate at a later time involved DMH involvement would be quite helpful 09/12: cont haldol get records ? hcp ? start antidep unclear hx 09/13: Keeping to self. More talkative today. Pt concerned he will be transferred to [facility]. Pt stated, The paper I signed yesterday. Are you going to send me back to the last hospital? That place was horrible . Pt was educated he signed a release of information with Dr. Gonzalez to obtain records from [facility]. Pt was given a copy of the release he signed. Despite this, pt continues to be anxious about being transferred. Pt denies SI/HI/VH/AH. 09/14: Keeping to self. active on unit. showered. Pt reports feeling alright today; pt reports he is worried about where I'm going to go . Pt continues concerned he will be transferred to [facility]. Pt denies SI/HI/VH/AH. 09/15:Pt reports feeling alright today; pt continues to report he is worried about where I'm going to go . Responding with brief responses. Guarded. Observed standing in one place for a long period of time. Appears confused. Pt denies SI/HI/VH/AH. T/W spoke to patient's sister, Ros, with patients verbal consent. Ros reports concerns regarding patients ability to make decisions regarding his mental and physical health. She plans on contacting legal advice on obtaining guardianship of patient. 09/16:Patient's presents similar to yesterday's presentation. Responding with brief responses. Guarded. Observed standing in one place for a long period of time, when asked what he is doing, pt stated, I don't know . Pt reports he plans on contacting his sister today and try to convince her for me to stay there . Pt denies SI/HI/VH/AH. Continue current tx plan. 09/17: brief responses. Guarded. 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 Pt denies SI/HI/VH/AH. T/W and Dr. Gonzalez spoke to patient's sister, Ros. Ros stated being [facility] HCP and plans on finding document. She plans on coming to the hospital on Saturday to be present for [facility] intake. 09/21: No changes 09/22:Patient flat apathetic difficult insight and judgment his sister is healthcare proxy if needed patient is accepting medical treatment Referral to [facility] 09/23:Considers starting Haldol Decanoate patient is agreeable superficially difficulty with exec fx was seen [facility] 09/24:Pt seen in f/u mood flat dysphoric difficulty engaging in conversation preoccupied with thought he wont be living with family thing slowed apathetic no clear response with namenda ? some improvement inc lamictal start low dose sertraline inc lamictal ck tsh 7/25:Start Abilify as augmentation with Haldol see if can be more stimulating regarding depressed mood apathetic limited engagement sertraline 50 mg Lamictal 25 b.i.d. referral to [facility] which would have structure unclear if patient can engage with this he remains quite depressed has delusional beliefs regarding housing and that things have been done he has repeatedly tried to reach out to his sister denies active SI needs much help dressing talking with others encouragement to eat severe thought blocking Abilify might be more stimulating than Haldol which can be more dulling 09/26:Abilify started sertraline Lamictal encouraged step-down to [facility] encourage reality orientation denies active SI 09/27: Continue current regimen and plans 09/28: Continue current regimen and plans. 09/29: Referral to [facility] increase Abilify to 5 mg daily eventually try and taper Haldol sertraline 50 mg daily 09/30:Increase Abilify to 10 mg lower Haldol to 7 mg continue sertraline and Lamictal 10/01:Abilify increased to 10 mg continue to taper Haldol sertraline 100 mg Lamictal increased to 75 mg patient apathetic withdrawn difficulty with placement some paranoia continues difficulty with decision making at times. Not physically aggressive internally preoccupied seems somewhat improved with Abilify sertraline Continue discharge planning 10/02:Patient somewhat blunted flat slowed thinking during the day times staring. Change Abilify to 10 mg at bedtime. Scheduled Haldol will lowered to 2.5 mg Continue sertraline 100 mg Namenda 5 b.i.d. 10/03:Haldol discontinued modafinil low-dose monitor for psychosis or agitation continue discharge planning 10/06: May need to firm healthcare proxy calls have been placed to sister to try to help in discharge planning. Referrals made. Patient cooperative with care 10/07:Pharmacy ordering Abilify maintain a increase modafinil 100 mg patient remains flat passive depressed some improvement noted no current paranoia noted continue discharge planning no current safe discharge plan 10/08: Increase Lamictal 100 mg Abilify Maintena 400 mg hold modafinil unclear if was overly stimulating patient continues to present internally preoccupied. 10/09:Healthcare proxy invoked discharge planning continue Lamictal Abilify pending maintain a 10/10:Healthcare proxy invoked new CV signed discharge planning. 10/11 keep same treatment 10/12 keep same treatment 10/13: Continue plan of care Lamictal Abilify discharge planning sertraline 10/14: stable. continue current mgmt. 10/15: stable. continue current mgmt. 10/16: stable presentation. continue current mgmt. 10/17: as for yesterday. 10/18: no changes. 10/19: stabel, safe. no change. 10/20: no change in presentation. calm, cooperative. active on unit, social with select peers, attending groups. Pt reports feeling alright . denies SI/HI/VH/AH. Social work waiting to hear from possible placement location. Continue current tx plan. 10/21: continue current tx plan. awaiting placement. 10/22: calm, cooperative. active on unit, social with select peers, attending groups. Pt reports feeling good ; pt stated, I'm waiting to see where I'm going . denies SI/HI/VH/AH. Showered with encouragement. 10/23: continue current tx plan. 10/24: calm, cooperative. active on unit, social with select peers, attending groups. Pt reports feeling good ; pt stated, I just want a place to live . 10/25- likely at baseline for him- CTP 10/26 CTP likely needs placement 10/27: continue current tx plan. awaiting placement. 10/28: Similar to yesterday. No change in presentation. 10/29: Pt reports feeling good ;pt stated, just waiting for a place to live . denies any issues at this time. 10/30: calm, cooperative. active on unit, social with select peers, attending groups. Pt reports feeling worried about where I am going to live . denies any issues at this time. 10/21: no change in presentation. continue current tx plan. 11/01: continue current management and treatment plan. 11/02: Continue current management and treatment plan. 11/03: Continue current management and treatment plan. 11/04: Active on unit. calm, cooperative. social with select peers, attending groups. denies any issues at this time. He reports sleeping well. Pt reports he would be interested in applying for [facility] services; social work aware. 11/05: Active on unit. calm, cooperative. social with select peers, attending groups. denies any issues at this time. Pt reports feeling okay ; he reports anxiety regarding placement. Continue current tx plan. 11/07/23 [facility] referral has appropriate concerns re living stuation cont abilify lamictal 11/08/23 Pt cooperative with care d/c planning working with sw cont d/c planning cont lamictal abilify 11/12/23 Patient increasingly despairing aware of no clear discharge plan periods needs cuing for much functioning limited social engaged needs help regarding diabetes and medication compliance reportedly had been rejected by multiple rest homes patient not threatening intermittently hopeless helpless very limited family contact at this time 11/13/23 pt flat depressed hopeless helpless unable to fx without structure 11/15 continue tx. 11/16 continue tx. 11/18/2023 Continue plan of care referral to [facility] TSH low will decrease levothyroxine 11/19/23 Pt flat dysphor ic inc hopeless helpless lamictal 150 hs dec levothyroxine 150 d/c planning cont 11/20/23 lamictal inc d/c planning [facility] referral 12/02/2023 Continue Lamictal Abilify patient cooperative with care gets despairing at times regarding lack of family support problematic discharge planning in relationship to finding suitable structured place to live 12/02: Social with peers. Per nursing, pt did not sleep last night. Pt reports he did not sleeping because he wasn't tired but feel okay ; ordered Ativan 1mg PO bedtime for tonight, pt aware. 12/03: In bed sleeping, pt reports he is catching up on sleep from the night before. Calm, cooperative. T/W and dry dip workerBillie, with pt to discuss possibly going to the [facility]. Pt reports he would like to call his sister and speak to her before deciding. DC Ativan. 12/04: Active on unit, social with peers. attending groups. T/W and dry dip workerBillie, met with pt to discuss discharge plan. Pt reports he doesn't know if he would want to go to a homeless fpc; he states he would rather live on the street because I've done it before . Pt encouraged to consider benefits of going to a fpc with the winter months coming; he agreed to doing phone intake with social sciences instructor on Saturday with [facility]. 12/05: Pt presents similar to yesterday. Continues to perseverate about [facility] being a fpc and not a program; He continues to agree to do phone intake on Saturday. Discussed VARGAS, pt reports he want time to consider d/t not liking needles . 12/08: Pt had phone interview with [facility], however, after multiple attempts at calling them, no one at [facility] picked up the phone to conduct interview. dry dip worker to get into contact with them again. Pt denies any issues at this time. 12/09: Active on unit, social with peers. Pt denies any issues at this time. Patient agreed to receiving Abilify Maintena; risks/benefits reviewed. Waiting on placement. 12/10: Patient received Abilify Maintena yesterday. He denies any side effects. Pleasant. Waiting on placement. 12/11: continue current tx plan. 12/12: similar to days prior. waiting on placement. continue current tx plan. 12/13: appearing more depressed or demoralized. notes lots of people come and go. continue current mgmt. 12/14: same as for yesterday: find me a place to live? continue current mgmt. 12/15: out and about more. otherwise stable. continue current mgmt. 12/16: continue current tx plan. 12/17: continue current tx plan. 12/18: awaiting placement. denies any issues. 12/19: Pt reports feeling alright ; Social work continues to work on placement. Pt denies any issues at this time. Pt reports sleeping well. 12/20: Continue plan of care 12/21: Continue plan of care 12/22: continue current tx plan. 12/23: continue tx plan. 12/24: continue tx plan. 12/25: similar to days prior. waiting on placement. 12/26: Continue current tx plan. 12/27: Continue current management and treatment plan. 12/28: Continue current management and treatment plan. 12/29: In bed, tested positive for Covid. Vomited x1 per nursing. Pt reports feeling okay ; sleeping most of shift. Continue current tx plan. 12/30: Pt reports feeling okay ; continues on isolation d/t being Covid positive. Utilizing IPad. Pt reports sleeping well. denies SI/HI/VH/AH. Has not vomited today. 12/31: Pt reports feeling alright ; pt stated, I still have a stuffy nose, cough and headache but I'm starting to feel better . continues on isolation. denies other issues at this time. Continue current tx plan. 01/01: pt reports covid symptoms are improving. continues waiting on placement. 01/02: Continue tx plan. 01/05/24: no changes. 01/05: Active on unit. Pt reports feeling okay today; denies any issues at this time. pt had meeting with [facility] to be placed on list for temporary placement; pt declined. Dr. Gonzalez to speak to patient regarding this. 01/06: Discussed placement; pt reports he is thinking about saying yes to the motel . pt reports he does not believe his sister or social sciences instructor that he has money saved in the bank. Pt believes if he left to go to the motel he would be stuck there with no money . Social work to discuss with pt. 01/07: Active on unit. social with peers. denies any issues. Pt reports feeling okay ; reports he is still thinking about where he will go after discharge. 01/08: waiting on placement. continue current tx plan. 01/09: Patient continues to wait on placement. 119: Continue current management and treatment plan. 03/13: Continue current management and treatment plan. 01/12: waiting on placement. 01/13: continue current tx plan. 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 noted on the unit to fixate on certain female peers. 01/24 continues with impaired insight/judgement- risk to others requiring inpatient and 01/25 given poor insight and stalking behavior continues to need inpt level of stay 02/01/24 Patient with odd affect feels safe in this setting requires structured setting given neurocognitive behavioral difficulties 02/02/24 Pt flat blunted not aggressive but can be intrusive needs help with medication and cueing 02/09/2024: Awaiting placement. Without appropriate placement, would lead to rapid decompensation and inability to care for self. 02/20/24 continue tx. 02/20 continue tx. 02/21 continue tx. 02/22 continue tx. Time Spent With Patient Time: Total time managing care of this patient today ____ minutes.
[2024-02-23 20:00] VITALS: BP 119/62; PULSE 79; RESP 18; TEMP 36.8; O2SAT 97
[2024-02-23] MEDS: lamoTRIgine 100 MG TABLET 150 MG PO (20:27)
[2024-02-23] MEDS: hydrOXYzine HCL 25 MG TABLET PO (20:27)
[2024-02-23] MEDS: Insulin Glargine,Hum.rec.anlog 100 UNIT/ML 10 ML VIAL 20 UNIT SUBCUT (20:28)
[2024-02-24] MEDS: Levothyroxine Sodium 150 MCG TABLET PO (06:44)
[2024-02-24 06:50] LABS: Glucose, Whole Blood 119 mg/dL (60-115)
[2024-02-24 08:00] VITALS: BP 118/72; PULSE 68; RESP 18; TEMP 36; O2SAT 96
[2024-02-24] MEDS: Memantine HCl 5 MG TABLET PO ×2 (08:34→20:10)
[2024-02-24] MEDS: Sertraline HCL 50 MG TABLET PO (08:34)
--- NOTE | 2024-02-24 15:02 | P.PNPSI_ITS ---
Subjective Subjective Date of Service: 02/24/24 Reason For Visit: crisis Subjective Notes: Conditional Voluntary Interim History: The nursing staff reported the patient had been compliant with treatment. 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 On interview the patient denies new symptoms, waiting for placement. Mental Status Exam Mental Status Exam Patient Appearance: Well Grooomed Patient Orientation: Person and Situation Level of Consciousness: Awake Patient Behavior: Cooperative Mood Description: Calm Affect Description: Constricted Patient Cognition Impaired: Yes Ability to Follow Directions: Good Speech Pattern: Clear 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: None Delusions: Ideas of Reference Thought Process: Distracted and Slowed Thinking Thought Content: positive for Circumstantial Judgement: Fair Diagnostics Vital Signs (24Hr): Vital Signs - 24 hr 02/23/24 15:10 02/23/24 20:00 02/24/24 08:00 Temperature 98.9 F 98.3 F 96.8 F Pulse Rate 77 79 68 Respiratory Rate 16 18 18 Blood Pressure 121/71 119/62 118/72 Pulse Oximetry 96 97 96 Oxygen Delivery Method Room Air Room Air Room Air BMI result Body Mass Index 31.8 Labs 09/10/23 20:00 02/20/24 08:38 Labs: Laboratory Results - last 48 hr 02/23/24 02/24/24 06:14 06:46 POC Glucose 135 H 119 H Imaging Radiology Impressions: ITS Impressions Brain MRI 09/19/23 20:33 IMPRESSION: 1. No demonstrated acute intracranial abnormalities. 2. Chronic mild to moderate nonspecific white matter changes, most notably in the deep white matter of the right frontal lobe. Mild to moderate generalized cerebral volume loss. Medications Medications Current Medications Acetaminophen (Acetaminophen 325 Mg Tablet) 650 mg PO Q6H PRN PRN Reason: Headache/Pain Mild Scale (1-3) Last Admin: 01/01/24 08:45 Dose: 650 mg Al Hydroxide/Mg Hydroxide (Magnesium Hydrox/Alum Hydrox 30 Ml Oral.Susp) 30 ml PO Q6H PRN PRN Reason: Heartburn/Nausea Last Admin: 11/27/23 10:48 Dose: 30 ml Aripiprazole (Aripiprazole Er 300 Mg Suser.Syr) 300 mg IM Q28D@0900 MANAS Last Admin: 02/05/24 10:14 Dose: 300 mg Benzocaine (Throat Lozenge, Medicated Lozenge) 1 lozenge MUCOUS MEM Q2H PRN PRN Reason: Sore Throat Last Admin: 12/30/23 20:59 Dose: 1 lozenge Benztropine Mesylate (Benztropine Mesylate 0.5 Mg Tablet) 0.5 mg PO TID PRN PRN Reason: Extrapyramidal Effects Glucose (Glucose Gel 15 Gm Gel..Gram.) 15 gm PO Q15M PRN; Protocol PRN Reason: per Hypoglycemia Standing Ord. Guaifenesin/Dextromethorphan (Guaifenesin Dm 100/10/5 Ml 5 Ml Syrup) 5 ml PO Q4H PRN PRN Reason: Cough Last Admin: 01/06/24 22:48 Dose: 5 ml Hydroxyzine HCl (Hydroxyzine Hcl 25 Mg Tablet) 25 mg PO Q6H PRN PRN Reason: Anxiety Last Admin: 02/23/24 20:27 Dose: 25 mg Dextrose (D10) 250 mls @ 750 mls/hr IV Q15M PRN; Protocol PRN Reason: per Hypoglycemia Standing Ord. Insulin Glargine (Insulin Glargine,Hum.Rec.Anlog 100 Unit/Ml 10 Ml Vial) 20 unit SUBCUT BEDTIME [facility] Last Admin: 02/23/24 20:28 Dose: 20 unit Lamotrigine (Lamotrigine 100 Mg Tablet) 150 mg PO BEDTIME [facility] Last Admin: 02/23/24 20:27 Dose: 150 mg Levothyroxine Sodium (Levothyroxine Sodium 150 Mcg Tablet) 150 mcg PO DAILY@0630 [facility] Last Admin: 02/24/24 06:44 Dose: 150 mcg Magnesium Hydroxide (Milk Of Magnesia 30 Ml Oral.Susp) 30 ml PO DAILY PRN PRN Reason: Constipation Memantine (Memantine Hcl 5 Mg Tablet) 5 mg PO BID [facility] Last Admin: 02/24/24 08:34 Dose: 5 mg Metformin HCl (Metformin Hcl Er 500 Mg Tab.Er.24h) 1,000 mg PO DAILY@1700 [facility] Last Admin: 02/23/24 17:58 Dose: 1,000 mg Ondansetron HCl (Ondansetron Odt 8 Mg Tab.Rapdis) 8 mg TRANSLINGU Q8H PRN PRN Reason: Nausea and Vomiting Last Admin: 02/17/24 10:06 Dose: 8 mg Sertraline HCl (Sertraline Hcl 50 Mg Tablet) 50 mg PO DAILY MANAS Last Admin: 02/24/24 08:34 Dose: 50 mg Simethicone (Simethicone 80 Mg Tab.Chew) 80 mg PO QIDWMHS PRN PRN Reason: Gas Trazodone HCl (Trazodone Hcl 50 Mg Tablet) 50 mg PO BEDTIME MRX1 PRN PRN Reason: Insomnia Last Admin: 02/23/24 20:27 Dose: 50 mg Allergies Allergies Allergy/AdvReac Type Severity Reaction Status Date / Time amoxicillin [AMOXICILLIN] Allergy Mild VOMITING/ABD Verified 09/10/23 19:44 PAIN Assessment & Plan Assessment & Plan (1) Schizoaffective disorder: Status: Acute Code(s): F25.9 - Schizoaffective disorder, unspecified (2) Hypothyroidism: Status: Acute Code(s): E03.9 - Hypothyroidism, unspecified (3) Type 2 diabetes mellitus: Status: Acute Code(s): E11.9 - Type 2 diabetes mellitus without complications (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 Continue with same medications. 2. Waiting for placement. Reason for continued inpatient stay Substantial Risk for: inability to function, rapid decompensation and med/psych decompensation Time Spent With Patient Time: Total time managing care of this patient today _20___ minutes.
[2024-02-24] MEDS: metFORMIN HCl ER 500 MG TAB.ER.24H 1000 MG PO (16:51)
[2024-02-24 20:00] VITALS: BP 128/61; PULSE 72; TEMP 36.7; O2SAT 97
[2024-02-24] MEDS: hydrOXYzine HCL 25 MG TABLET PO (20:09)
[2024-02-24] MEDS: traZODone HCL 50 MG TABLET PO (20:09)
[2024-02-24] MEDS: lamoTRIgine 100 MG TABLET 150 MG PO (20:10)
[2024-02-24] MEDS: Insulin Glargine,Hum.rec.anlog 100 UNIT/ML 10 ML VIAL 20 UNIT SUBCUT (20:14)
[2024-02-25] MEDS: Levothyroxine Sodium 150 MCG TABLET PO (06:01)
[2024-02-25 06:49] LABS: Glucose, Whole Blood 120 mg/dL (60-115)
[2024-02-25 07:42] VITALS: BP 120/70; PULSE 70; RESP 16; TEMP 36.1; O2SAT 97
[2024-02-25] MEDS: Sertraline HCL 50 MG TABLET PO (08:04)
[2024-02-25] MEDS: Memantine HCl 5 MG TABLET PO ×2 (08:04→21:09)
--- NOTE | 2024-02-25 13:03 | HO.PSYCHPN ---
Subjective Subjective Date of Service: 02/25/24 Reason For Visit: crisis Subjective Notes: Conditional Voluntary Interim History: The nursing staff reported no changes in his mental status compliant with treatment. On interview the patient denies new symptoms, waiting for placement. Mental Status Exam Mental Status Exam Patient Appearance: Appropriate Patient Orientation: Person and Situation Level of Consciousness: Awake and Appropriate Patient Behavior: Guarded and Passive Mood Description: Withdrawn Affect Description: Constricted Patient Cognition Impaired: Yes Ability to Follow Directions: Good Speech Pattern: Clear 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: None Delusions: Paranoid Ideation and Ideas of Reference Thought Process: Distracted and Slowed Thinking Thought Content: positive for [place] and positive for Poverty of Content Judgement: Fair Diagnostics Vital Signs (24Hr): Vital Signs - 24 hr 02/24/24 20:00 02/25/24 07:42 Temperature 98.1 F 97 F Pulse Rate 72 70 Respiratory Rate 16 Blood Pressure 128/61 120/70 Pulse Oximetry 97 97 Oxygen Delivery Method Room Air Room Air BMI result Body Mass Index 31.8 Labs 09/10/23 20:00 02/20/24 08:38 Labs: Laboratory Results - last 48 hr 02/24/24 02/25/24 06:46 06:23 POC Glucose 119 H 120 H Imaging Radiology Impressions: ITS Impressions Brain MRI 09/19/23 20:33 IMPRESSION: 1. No demonstrated acute intracranial abnormalities. 2. Chronic mild to moderate nonspecific white matter changes, most notably in the deep white matter of the right frontal lobe. Mild to moderate generalized cerebral volume loss. Medications Medications Current Medications Acetaminophen (Acetaminophen 325 Mg Tablet) 650 mg PO Q6H PRN PRN Reason: Headache/Pain Mild Scale (1-3) Last Admin: 01/01/24 08:45 Dose: 650 mg Al Hydroxide/Mg Hydroxide (Magnesium Hydrox/Alum Hydrox 30 Ml Oral.Susp) 30 ml PO Q6H PRN PRN Reason: Heartburn/Nausea Last Admin: 11/27/23 10:48 Dose: 30 ml Aripiprazole (Aripiprazole Er 300 Mg Suser.Syr) 300 mg IM Q28D@0900 MANAS Last Admin: 02/05/24 10:14 Dose: 300 mg Benzocaine (Throat Lozenge, Medicated Lozenge) 1 lozenge MUCOUS MEM Q2H PRN PRN Reason: Sore Throat Last Admin: 12/30/23 20:59 Dose: 1 lozenge Benztropine Mesylate (Benztropine Mesylate 0.5 Mg Tablet) 0.5 mg PO TID PRN PRN Reason: Extrapyramidal Effects Glucose (Glucose Gel 15 Gm Gel..Gram.) 15 gm PO Q15M PRN; Protocol PRN Reason: per Hypoglycemia Standing Ord. Guaifenesin/Dextromethorphan (Guaifenesin Dm 100/10/5 Ml 5 Ml Syrup) 5 ml PO Q4H PRN PRN Reason: Cough Last Admin: 01/06/24 22:48 Dose: 5 ml Hydroxyzine HCl (Hydroxyzine Hcl 25 Mg Tablet) 25 mg PO Q6H PRN PRN Reason: Anxiety Last Admin: 02/24/24 20:09 Dose: 25 mg Dextrose (D10) 250 mls @ 750 mls/hr IV Q15M PRN; Protocol PRN Reason: per Hypoglycemia Standing Ord. Insulin Glargine (Insulin Glargine,Hum.Rec.Anlog 100 Unit/Ml 10 Ml Vial) 20 unit SUBCUT BEDTIME [facility] Last Admin: 02/24/24 20:14 Dose: 20 unit Lamotrigine (Lamotrigine 100 Mg Tablet) 150 mg PO BEDTIME [facility] Last Admin: 02/24/24 20:10 Dose: 150 mg Levothyroxine Sodium (Levothyroxine Sodium 150 Mcg Tablet) 150 mcg PO DAILY@0630 [facility] Last Admin: 02/25/24 06:01 Dose: 150 mcg Magnesium Hydroxide (Milk Of Magnesia 30 Ml Oral.Susp) 30 ml PO DAILY PRN PRN Reason: Constipation Memantine (Memantine Hcl 5 Mg Tablet) 5 mg PO BID [facility] Last Admin: 02/25/24 08:04 Dose: 5 mg Metformin HCl (Metformin Hcl Er 500 Mg Tab.Er.24h) 1,000 mg PO DAILY@1700 [facility] Last Admin: 02/24/24 16:51 Dose: 1,000 mg Ondansetron HCl (Ondansetron Odt 8 Mg Tab.Rapdis) 8 mg TRANSLINGU Q8H PRN PRN Reason: Nausea and Vomiting Last Admin: 02/17/24 10:06 Dose: 8 mg Sertraline HCl (Sertraline Hcl 50 Mg Tablet) 50 mg PO DAILY [facility] Last Admin: 02/25/24 08:04 Dose: 50 mg Simethicone (Simethicone 80 Mg Tab.Chew) 80 mg PO QIDWMHS PRN PRN Reason: Gas Trazodone HCl (Trazodone Hcl 50 Mg Tablet) 50 mg PO BEDTIME MRX1 PRN PRN Reason: Insomnia Last Admin: 02/24/24 20:09 Dose: 50 mg Allergies Allergies Allergy/AdvReac Type Severity Reaction Status Date / Time amoxicillin [AMOXICILLIN] Allergy Mild VOMITING/ABD Verified 09/10/23 19:44 PAIN Assessment & Plan Assessment & Plan (1) Schizoaffective disorder: Status: Acute Code(s): F25.9 - Schizoaffective disorder, unspecified (2) Hypothyroidism: Status: Acute Code(s): E03.9 - Hypothyroidism, unspecified (3) Type 2 diabetes mellitus: Status: Acute Code(s): E11.9 - Type 2 diabetes mellitus without complications (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 Continue with same medications. 2. Waiting for placement. Reason for continued inpatient stay Substantial Risk for: inability to function, rapid decompensation and med/psych decompensation Time Spent With Patient Time: Total time managing care of this patient today __20__ minutes.
[2024-02-25] MEDS: metFORMIN HCl ER 500 MG TAB.ER.24H 1000 MG PO (16:10)
[2024-02-25 20:00] VITALS: BP 130/75; PULSE 80; RESP 16; TEMP 37.2; O2SAT 97
[2024-02-25] MEDS: lamoTRIgine 100 MG TABLET 150 MG PO (21:09)
[2024-02-25] MEDS: Insulin Glargine,Hum.rec.anlog 100 UNIT/ML 10 ML VIAL 20 UNIT SUBCUT (21:11)
[2024-02-26] MEDS: Levothyroxine Sodium 150 MCG TABLET PO (06:04)
[2024-02-26 06:12] LABS: Glucose, Whole Blood 113 mg/dL (60-115)
[2024-02-26 08:00] VITALS: BP 138/68; PULSE 66; RESP 16; TEMP 36.7; O2SAT 96
[2024-02-26] MEDS: Sertraline HCL 50 MG TABLET PO (08:58)
[2024-02-26] MEDS: Memantine HCl 5 MG TABLET PO ×2 (08:58→20:33)
--- NOTE | 2024-02-26 12:34 | P.PNPSI_ITS ---
Subjective Subjective Date of Service: 02/26/24 Reason For Visit: crisis Subjective Notes: Conditional Voluntary Interim History: Patient was seen and discussed in rounds today. Records and plans were reviewed. He has been stable and is doing okay. He had a good visit with the sister yesterday. He is compliant with treatment. Blood sugars have been stable. Eating and sleeping adequately. No changes were made today Review of Systems Review of Systems Yes all other systems are reviewed and are negative Mental Status Exam Mental Status Exam Patient Appearance: Appropriate Patient Orientation: Person and Situation Level of Consciousness: Awake and Appropriate Patient Behavior: Guarded and Passive Mood Description: Withdrawn Affect Description: Constricted Patient Cognition Impaired: Yes Ability to Follow Directions: Good Speech Pattern: Clear 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: None Delusions: Paranoid Ideation and Ideas of Reference Thought Process: Distracted and Slowed Thinking Thought Content: positive for [place] and positive for Poverty of Content Judgement: Fair Diagnostics Vital Signs (24Hr): Vital Signs - 24 hr 02/25/24 20:00 02/26/24 08:00 Temperature 98.9 F 98.0 F Pulse Rate 80 66 Respiratory Rate 16 16 Blood Pressure 130/75 138/68 Pulse Oximetry 97 96 Oxygen Delivery Method Room Air Room Air BMI result Body Mass Index 31.8 Labs 09/10/23 20:00 02/20/24 08:38 Labs: Laboratory Results - last 48 hr 02/25/24 02/26/24 06:23 06:06 POC Glucose 120 H 113 Imaging Radiology Impressions: ITS Impressions Brain MRI 09/19/23 20:33 IMPRESSION: 1. No demonstrated acute intracranial abnormalities. 2. Chronic mild to moderate nonspecific white matter changes, most notably in the deep white matter of the right frontal lobe. Mild to moderate generalized cerebral volume loss. Medications Medications Current Medications Acetaminophen (Acetaminophen 325 Mg Tablet) 650 mg PO Q6H PRN PRN Reason: Headache/Pain Mild Scale (1-3) Last Admin: 01/01/24 08:45 Dose: 650 mg Al Hydroxide/Mg Hydroxide (Magnesium Hydrox/Alum Hydrox 30 Ml Oral.Susp) 30 ml PO Q6H PRN PRN Reason: Heartburn/Nausea Last Admin: 11/27/23 10:48 Dose: 30 ml Aripiprazole (Aripiprazole Er 300 Mg Suser.Syr) 300 mg IM Q28D@0900 MANAS Last Admin: 02/05/24 10:14 Dose: 300 mg Benzocaine (Throat Lozenge, Medicated Lozenge) 1 lozenge MUCOUS MEM Q2H PRN PRN Reason: Sore Throat Last Admin: 12/30/23 20:59 Dose: 1 lozenge Benztropine Mesylate (Benztropine Mesylate 0.5 Mg Tablet) 0.5 mg PO TID PRN PRN Reason: Extrapyramidal Effects Glucose (Glucose Gel 15 Gm Gel..Gram.) 15 gm PO Q15M PRN; Protocol PRN Reason: per Hypoglycemia Standing Ord. Guaifenesin/Dextromethorphan (Guaifenesin Dm 100/10/5 Ml 5 Ml Syrup) 5 ml PO Q4H PRN PRN Reason: Cough Last Admin: 01/06/24 22:48 Dose: 5 ml Hydroxyzine HCl (Hydroxyzine Hcl 25 Mg Tablet) 25 mg PO Q6H PRN PRN Reason: Anxiety Last Admin: 02/24/24 20:09 Dose: 25 mg Dextrose (D10) 250 mls @ 750 mls/hr IV Q15M PRN; Protocol PRN Reason: per Hypoglycemia Standing Ord. Insulin Glargine (Insulin Glargine,Hum.Rec.Anlog 100 Unit/Ml 10 Ml Vial) 20 unit SUBCUT BEDTIME [facility] Last Admin: 02/25/24 21:11 Dose: 20 unit Lamotrigine (Lamotrigine 100 Mg Tablet) 150 mg PO BEDTIME [facility] Last Admin: 02/25/24 21:09 Dose: 150 mg Levothyroxine Sodium (Levothyroxine Sodium 150 Mcg Tablet) 150 mcg PO DAILY@0630 [facility] Last Admin: 02/26/24 06:04 Dose: 150 mcg Magnesium Hydroxide (Milk Of Magnesia 30 Ml Oral.Susp) 30 ml PO DAILY PRN PRN Reason: Constipation Memantine (Memantine Hcl 5 Mg Tablet) 5 mg PO BID [facility] Last Admin: 02/26/24 08:58 Dose: 5 mg Metformin HCl (Metformin Hcl Er 500 Mg Tab.Er.24h) 1,000 mg PO DAILY@1700 [facility] Last Admin: 02/25/24 16:10 Dose: 1,000 mg Ondansetron HCl (Ondansetron Odt 8 Mg Tab.Rapdis) 8 mg TRANSLINGU Q8H PRN PRN Reason: Nausea and Vomiting Last Admin: 02/17/24 10:06 Dose: 8 mg Sertraline HCl (Sertraline Hcl 50 Mg Tablet) 50 mg PO DAILY MANAS Last Admin: 02/26/24 08:58 Dose: 50 mg Simethicone (Simethicone 80 Mg Tab.Chew) 80 mg PO QIDWMHS PRN PRN Reason: Gas Trazodone HCl (Trazodone Hcl 50 Mg Tablet) 50 mg PO BEDTIME MRX1 PRN PRN Reason: Insomnia Last Admin: 02/24/24 20:09 Dose: 50 mg Allergies Allergies Allergy/AdvReac Type Severity Reaction Status Date / Time amoxicillin [AMOXICILLIN] Allergy Mild VOMITING/ABD Verified 09/10/23 19:44 PAIN Assessment & Plan Assessment & Plan (1) Schizoaffective disorder: Status: Acute Code(s): F25.9 - Schizoaffective disorder, unspecified (2) Hypothyroidism: Status: Acute Code(s): E03.9 - Hypothyroidism, unspecified (3) Type 2 diabetes mellitus: Status: Acute Code(s): E11.9 - Type 2 diabetes mellitus without complications (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 Continue with same medications. 2. Waiting for placement. 02/25: Continue current regimen and plans Reason for continued inpatient stay Substantial Risk for: med/psych decompensation Time Spent With Patient Time: Total time managing care of this patient today ____ minutes.
[2024-02-26] MEDS: metFORMIN HCl ER 500 MG TAB.ER.24H 1000 MG PO (16:30)
[2024-02-26 20:00] VITALS: BP 131/63; PULSE 83; RESP 16; TEMP 36.4; O2SAT 94
[2024-02-26] MEDS: Insulin Glargine,Hum.rec.anlog 100 UNIT/ML 10 ML VIAL 20 UNIT SUBCUT (20:32)
[2024-02-26] MEDS: lamoTRIgine 100 MG TABLET 150 MG PO (20:33)
[2024-02-27] MEDS: Levothyroxine Sodium 150 MCG TABLET PO (05:49)
[2024-02-27 06:08] LABS: Glucose, Whole Blood 112 mg/dL (60-115)
[2024-02-27 07:00] VITALS: BMI 31.7
[2024-02-27 08:24] VITALS: BP 129/80; PULSE 87; RESP 16; TEMP 36.8; O2SAT 96
[2024-02-27] MEDS: Sertraline HCL 50 MG TABLET PO (08:28)
[2024-02-27] MEDS: Memantine HCl 5 MG TABLET PO ×2 (08:28→21:04)
[2024-02-27] MEDS: guaiFENesin DM 100/10/5 ML 5 ML SYRUP PO (08:31)
[2024-02-27 09:34] LABS: Creatinine Clr Calc Pharmacy 96.8; Estimated Glomerular Filt Rate > 60
[2024-02-27] MEDS: Pseudoephedrine HCL 30 MG TABLET PO (13:49)
--- NOTE | 2024-02-27 15:07 | HO.PSYCHPN ---
Subjective Subjective Date of Service: 02/27/24 Reason For Visit: crisis Subjective Notes: Conditional Voluntary Interim History: The nursing staff reported no changes in mental status compliant with treatment. On interview the patient denies new symptoms. Mental Status Exam Mental Status Exam Patient Appearance: Appropriate Patient Orientation: Person and Situation Level of Consciousness: Awake and Appropriate Patient Behavior: Guarded Mood Description: Calm Affect Description: Constricted Patient Cognition Impaired: Yes Ability to Follow Directions: Good Speech Pattern: Clear 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: None Delusions: Not Present Thought Process: Distracted Thought Content: positive for [place] and positive for Poverty of Content Judgement: Fair Diagnostics Vital Signs (24Hr): Vital Signs - 24 hr 02/26/24 20:00 02/27/24 08:24 Temperature 97.5 F 98.3 F Pulse Rate 83 87 Respiratory Rate 16 16 Blood Pressure 131/63 129/80 Pulse Oximetry 94 96 Oxygen Delivery Method Room Air Nasal Cannula BMI result Body Mass Index 31.7 Labs 09/10/23 20:00 02/27/24 08:55 Labs: Laboratory Results - last 48 hr 02/26/24 02/27/24 02/27/24 06:06 05:52 08:55 Creatinine 0.94 Estim Creat Clear Calc 96.8 Estimated GFR > 60 POC Glucose 113 112 Imaging Radiology Impressions: ITS Impressions Brain MRI 09/19/23 20:33 IMPRESSION: 1. No demonstrated acute intracranial abnormalities. 2. Chronic mild to moderate nonspecific white matter changes, most notably in the deep white matter of the right frontal lobe. Mild to moderate generalized cerebral volume loss. Medications Medications Current Medications Acetaminophen (Acetaminophen 325 Mg Tablet) 650 mg PO Q6H PRN PRN Reason: Headache/Pain Mild Scale (1-3) Last Admin: 01/01/24 08:45 Dose: 650 mg Al Hydroxide/Mg Hydroxide (Magnesium Hydrox/Alum Hydrox 30 Ml Oral.Susp) 30 ml PO Q6H PRN PRN Reason: Heartburn/Nausea Last Admin: 11/27/23 10:48 Dose: 30 ml Aripiprazole (Aripiprazole Er 300 Mg Suser.Syr) 300 mg IM Q28D@0900 MANAS Last Admin: 02/05/24 10:14 Dose: 300 mg Benzocaine (Throat Lozenge, Medicated Lozenge) 1 lozenge MUCOUS MEM Q2H PRN PRN Reason: Sore Throat Last Admin: 12/30/23 20:59 Dose: 1 lozenge Benztropine Mesylate (Benztropine Mesylate 0.5 Mg Tablet) 0.5 mg PO TID PRN PRN Reason: Extrapyramidal Effects Glucose (Glucose Gel 15 Gm Gel..Gram.) 15 gm PO Q15M PRN; Protocol PRN Reason: per Hypoglycemia Standing Ord. Guaifenesin/Dextromethorphan (Guaifenesin Dm 100/10/5 Ml 5 Ml Syrup) 5 ml PO Q4H PRN PRN Reason: Cough Last Admin: 02/27/24 08:31 Dose: 5 ml Hydroxyzine HCl (Hydroxyzine Hcl 25 Mg Tablet) 25 mg PO Q6H PRN PRN Reason: Anxiety Last Admin: 02/24/24 20:09 Dose: 25 mg Dextrose (D10) 250 mls @ 750 mls/hr IV Q15M PRN; Protocol PRN Reason: per Hypoglycemia Standing Ord. Insulin Glargine (Insulin Glargine,Hum.Rec.Anlog 100 Unit/Ml 10 Ml Vial) 20 unit SUBCUT BEDTIME [facility] Last Admin: 02/26/24 20:32 Dose: 20 unit Lamotrigine (Lamotrigine 100 Mg Tablet) 150 mg PO BEDTIME [facility] Last Admin: 02/26/24 20:33 Dose: 150 mg Levothyroxine Sodium (Levothyroxine Sodium 150 Mcg Tablet) 150 mcg PO DAILY@0630 [facility] Last Admin: 02/27/24 05:49 Dose: 150 mcg Magnesium Hydroxide (Milk Of Magnesia 30 Ml Oral.Susp) 30 ml PO DAILY PRN PRN Reason: Constipation Memantine (Memantine Hcl 5 Mg Tablet) 5 mg PO BID [facility] Last Admin: 02/27/24 08:28 Dose: 5 mg Metformin HCl (Metformin Hcl Er 500 Mg Tab.Er.24h) 1,000 mg PO DAILY@1700 [facility] Last Admin: 02/26/24 16:30 Dose: 1,000 mg Ondansetron HCl (Ondansetron Odt 8 Mg Tab.Rapdis) 8 mg TRANSLINGU Q8H PRN PRN Reason: Nausea and Vomiting Last Admin: 02/17/24 10:06 Dose: 8 mg Pseudoephedrine HCl (Pseudoephedrine Hcl 30 Mg Tablet) 30 mg PO Q4H PRN PRN Reason: Nasal Congestion Last Admin: 02/27/24 13:49 Dose: 30 mg Sertraline HCl (Sertraline Hcl 50 Mg Tablet) 50 mg PO DAILY MANAS Last Admin: 02/27/24 08:28 Dose: 50 mg Simethicone (Simethicone 80 Mg Tab.Chew) 80 mg PO QIDWMHS PRN PRN Reason: Gas Trazodone HCl (Trazodone Hcl 50 Mg Tablet) 50 mg PO BEDTIME MRX1 PRN PRN Reason: Insomnia Last Admin: 02/24/24 20:09 Dose: 50 mg Allergies Allergies Allergy/AdvReac Type Severity Reaction Status Date / Time amoxicillin [AMOXICILLIN] Allergy Mild VOMITING/ABD Verified 09/10/23 19:44 PAIN Assessment & Plan Assessment & Plan (1) Schizoaffective disorder: Status: Acute Code(s): F25.9 - Schizoaffective disorder, unspecified (2) Hypothyroidism: Status: Acute Code(s): E03.9 - Hypothyroidism, unspecified (3) Type 2 diabetes mellitus: Status: Acute Code(s): E11.9 - Type 2 diabetes mellitus without complications (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 Continue with same medications. 2. Waiting for placement. 02/25: Continue current regimen and plans Reason for continued inpatient stay Substantial Risk for: inability to function, rapid decompensation and med/psych decompensation Time Spent With Patient Time: Total time managing care of this patient today _20___ minutes.
[2024-02-27] MEDS: metFORMIN HCl ER 500 MG TAB.ER.24H 1000 MG PO (16:23)
[2024-02-27 20:00] VITALS: BP 122/71; PULSE 84; RESP 16; TEMP 37.1; O2SAT 96
[2024-02-27] MEDS: Insulin Glargine,Hum.rec.anlog 100 UNIT/ML 10 ML VIAL 20 UNIT SUBCUT (21:02)
[2024-02-27] MEDS: lamoTRIgine 100 MG TABLET 150 MG PO (21:03)
[2024-02-28] MEDS: Levothyroxine Sodium 150 MCG TABLET PO (05:47)
[2024-02-28 06:50] LABS: Glucose, Whole Blood 158 mg/dL (60-115)
[2024-02-28 08:04] VITALS: BP 114/70; PULSE 81; RESP 18; TEMP 36.8; O2SAT 99
[2024-02-28] MEDS: Sertraline HCL 50 MG TABLET PO (08:34)
[2024-02-28] MEDS: Memantine HCl 5 MG TABLET PO ×2 (08:35→20:03)
--- NOTE | 2024-02-28 09:11 | P.PNPSI_ITS ---
Subjective Subjective Date of Service: 02/28/24 Reason For Visit: crisis Subjective Notes: Section 8 Interim History: Pt sleeping through the night. No behavioral concerns. he denies any concerns. No SI/HI. taking medications as prescribed. Review of Systems Review of Systems Unremarkable Yes all other systems are reviewed and are negative and unobtainable due to endotracheal tube Constitutional: Reports as per HPI Eyes: Reports as per HPI Reports as per HPI Cardiovascular: Reports as per HPI Respiratory: Reports as per HPI Gastrointestinal: Reports as per HPI Genitourinary: Reports as per HPI Musculoskeletal: Reports as per HPI Skin/Breast: Reports as per HPI Reports as per HPI Psychiatric: Reports as per HPI Endocrine: Reports as per HPI Hematologic/Lymphatic: Reports as per HPI Allergic/Immunologic: Reports as per HPI Mental Status Exam Mental Status Exam Patient Appearance: Appropriate Patient Orientation: Person and Situation Level of Consciousness: Awake and Appropriate Patient Behavior: Guarded Mood Description: Calm Affect Description: Constricted Patient Cognition Impaired: Yes Ability to Follow Directions: Good Speech Pattern: Clear 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: Safety Analyst Impaired Diagnostics Vital Signs (24Hr): Vital Signs - 24 hr 02/27/24 20:00 02/28/24 08:04 Temperature 98.7 F 98.2 F Pulse Rate 84 81 Respiratory Rate 16 18 Blood Pressure 122/71 114/70 Pulse Oximetry 96 99 Oxygen Delivery Method Room Air Room Air BMI result Body Mass Index 31.7 Labs 09/10/23 20:00 02/27/24 08:55 Labs: Laboratory Results - last 48 hr 02/27/24 02/27/24 02/28/24 05:52 08:55 05:49 Creatinine 0.94 Estim Creat Clear Calc 96.8 Estimated GFR > 60 POC Glucose 112 158 H Imaging Radiology Impressions: ITS Impressions Brain MRI 09/19/23 20:33 IMPRESSION: 1. No demonstrated acute intracranial abnormalities. 2. Chronic mild to moderate nonspecific white matter changes, most notably in the deep white matter of the right frontal lobe. Mild to moderate generalized cerebral volume loss. Medications Medications Current Medications Acetaminophen (Acetaminophen 325 Mg Tablet) 650 mg PO Q6H PRN PRN Reason: Headache/Pain Mild Scale (1-3) Last Admin: 01/01/24 08:45 Dose: 650 mg Al Hydroxide/Mg Hydroxide (Magnesium Hydrox/Alum Hydrox 30 Ml Oral.Susp) 30 ml PO Q6H PRN PRN Reason: Heartburn/Nausea Last Admin: 11/27/23 10:48 Dose: 30 ml Aripiprazole (Aripiprazole Er 300 Mg Suser.Syr) 300 mg IM Q28D@0900 [facility] Last Admin: 02/05/24 10:14 Dose: 300 mg Benzocaine (Throat Lozenge, Medicated Lozenge) 1 lozenge MUCOUS MEM Q2H PRN PRN Reason: Sore Throat Last Admin: 12/30/23 20:59 Dose: 1 lozenge Benztropine Mesylate (Benztropine Mesylate 0.5 Mg Tablet) 0.5 mg PO TID PRN PRN Reason: Extrapyramidal Effects Glucose (Glucose Gel 15 Gm Gel..Gram.) 15 gm PO Q15M PRN; Protocol PRN Reason: per Hypoglycemia Standing Ord. Guaifenesin/Dextromethorphan (Guaifenesin Dm 100/10/5 Ml 5 Ml Syrup) 5 ml PO Q4H PRN PRN Reason: Cough Last Admin: 02/27/24 08:31 Dose: 5 ml Hydroxyzine HCl (Hydroxyzine Hcl 25 Mg Tablet) 25 mg PO Q6H PRN PRN Reason: Anxiety Last Admin: 02/24/24 20:09 Dose: 25 mg Dextrose (D10) 250 mls @ 750 mls/hr IV Q15M PRN; Protocol PRN Reason: per Hypoglycemia Standing Ord. Insulin Glargine (Insulin Glargine,Hum.Rec.Anlog 100 Unit/Ml 10 Ml Vial) 20 unit SUBCUT BEDTIME [facility] Last Admin: 02/27/24 21:02 Dose: 20 unit Lamotrigine (Lamotrigine 100 Mg Tablet) 150 mg PO BEDTIME [facility] Last Admin: 02/27/24 21:03 Dose: 150 mg Levothyroxine Sodium (Levothyroxine Sodium 150 Mcg Tablet) 150 mcg PO DAILY@0630 [facility] Last Admin: 02/28/24 05:47 Dose: 150 mcg Magnesium Hydroxide (Milk Of Magnesia 30 Ml Oral.Susp) 30 ml PO DAILY PRN PRN Reason: Constipation Memantine (Memantine Hcl 5 Mg Tablet) 5 mg PO BID [facility] Last Admin: 02/28/24 08:35 Dose: 5 mg Metformin HCl (Metformin Hcl Er 500 Mg Tab.Er.24h) 1,000 mg PO DAILY@1700 [facility] Last Admin: 02/27/24 16:23 Dose: 1,000 mg Ondansetron HCl (Ondansetron Odt 8 Mg Tab.Rapdis) 8 mg TRANSLINGU Q8H PRN PRN Reason: Nausea and Vomiting Last Admin: 02/17/24 10:06 Dose: 8 mg Pseudoephedrine HCl (Pseudoephedrine Hcl 30 Mg Tablet) 30 mg PO Q4H PRN PRN Reason: Nasal Congestion Last Admin: 02/27/24 13:49 Dose: 30 mg Sertraline HCl (Sertraline Hcl 50 Mg Tablet) 50 mg PO DAILY [facility] Last Admin: 02/28/24 08:34 Dose: 50 mg Simethicone (Simethicone 80 Mg Tab.Chew) 80 mg PO QIDWMHS PRN PRN Reason: Gas Trazodone HCl (Trazodone Hcl 50 Mg Tablet) 50 mg PO BEDTIME MRX1 PRN PRN Reason: Insomnia Last Admin: 02/24/24 20:09 Dose: 50 mg Allergies Allergies Allergy/AdvReac Type Severity Reaction Status Date / Time amoxicillin [AMOXICILLIN] Allergy Mild VOMITING/ABD Verified 09/10/23 19:44 PAIN Assessment & Plan Assessment & Plan (1) Schizoaffective disorder: Status: Acute Code(s): F25.9 - Schizoaffective disorder, unspecified (2) Hypothyroidism: Status: Acute Code(s): E03.9 - Hypothyroidism, unspecified (3) Type 2 diabetes mellitus: Status: Acute Code(s): E11.9 - Type 2 diabetes mellitus without complications (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 Continue with same medications. 2. Waiting for placement. 02/25: Continue current regimen and plans 02/27. continue tx. Reason for continued inpatient stay Substantial Risk for: inability to function Time Spent With Patient Time: Total time managing care of this patient today ____ minutes.
[2024-02-28] MEDS: metFORMIN HCl ER 500 MG TAB.ER.24H 1000 MG PO (16:32)
[2024-02-28 20:00] VITALS: BP 128/78; PULSE 81; RESP 16; TEMP 36.6; O2SAT 97
[2024-02-28] MEDS: lamoTRIgine 100 MG TABLET 150 MG PO (20:02)
[2024-02-28] MEDS: Insulin Glargine,Hum.rec.anlog 100 UNIT/ML 10 ML VIAL 20 UNIT SUBCUT (20:03)
[2024-02-29] MEDS: Levothyroxine Sodium 150 MCG TABLET PO (06:05)
[2024-02-29 06:45] LABS: Glucose, Whole Blood 120 mg/dL (60-115)
[2024-02-29 08:00] VITALS: BP 126/78; PULSE 74; RESP 18; TEMP 36.7; O2SAT 97
[2024-02-29] MEDS: Memantine HCl 5 MG TABLET PO ×2 (08:42→20:17)
[2024-02-29] MEDS: Sertraline HCL 50 MG TABLET PO (08:42)
--- NOTE | 2024-02-29 10:47 | P.PNPSI_ITS ---
Subjective Subjective Date of Service: 02/29/24 Reason For Visit: crisis Interim History: Pt sleeping through the night. No behavioral concerns. he denies any concerns. No SI/HI. taking medications as prescribed. Review of Systems Review of Systems Unremarkable Yes all other systems are reviewed and are negative and unobtainable due to endotracheal tube Constitutional: Reports as per HPI Eyes: Reports as per HPI Reports as per HPI Cardiovascular: Reports as per HPI Respiratory: Reports as per HPI Gastrointestinal: Reports as per HPI Genitourinary: Reports as per HPI Musculoskeletal: Reports as per HPI Skin/Breast: Reports as per HPI Reports as per HPI Psychiatric: Reports as per HPI Endocrine: Reports as per HPI Hematologic/Lymphatic: Reports as per HPI Allergic/Immunologic: Reports as per HPI Mental Status Exam Mental Status Exam Narrative: Ante room. Mask. The patient is blunted with poverty of content. No overt suspiciousness. Denied hallucinations. Denied SI or HI. Difficulty with decision-making impaired insight judgment Patient Appearance: Appropriate Patient Orientation: Person and Situation Level of Consciousness: Awake and Appropriate Patient Behavior: Guarded Mood Description: Calm Affect Description: Constricted Patient Cognition Impaired: Yes Ability to Follow Directions: Good Speech Pattern: Clear 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: Business Operations Coordinator Impaired Diagnostics Vital Signs (24Hr): Vital Signs - 24 hr 02/28/24 20:00 Temperature 97.9 F Pulse Rate 81 Respiratory Rate 16 Blood Pressure 128/78 Pulse Oximetry 97 Oxygen Delivery Method Room Air BMI result Body Mass Index 31.7 Labs 09/10/23 20:00 02/27/24 08:55 Labs: Laboratory Results - last 48 hr 02/28/24 02/29/24 05:49 06:06 POC Glucose 158 H 120 H Imaging Radiology Impressions: ITS Impressions Brain MRI 09/19/23 20:33 IMPRESSION: 1. No demonstrated acute intracranial abnormalities. 2. Chronic mild to moderate nonspecific white matter changes, most notably in the deep white matter of the right frontal lobe. Mild to moderate generalized cerebral volume loss. Medications Medications Current Medications Acetaminophen (Acetaminophen 325 Mg Tablet) 650 mg PO Q6H PRN PRN Reason: Headache/Pain Mild Scale (1-3) Last Admin: 01/01/24 08:45 Dose: 650 mg Al Hydroxide/Mg Hydroxide (Magnesium Hydrox/Alum Hydrox 30 Ml Oral.Susp) 30 ml PO Q6H PRN PRN Reason: Heartburn/Nausea Last Admin: 11/27/23 10:48 Dose: 30 ml Aripiprazole (Aripiprazole Er 300 Mg Suser.Syr) 300 mg IM Q28D@0900 [facility] Last Admin: 02/05/24 10:14 Dose: 300 mg Benzocaine (Throat Lozenge, Medicated Lozenge) 1 lozenge MUCOUS MEM Q2H PRN PRN Reason: Sore Throat Last Admin: 12/30/23 20:59 Dose: 1 lozenge Benztropine Mesylate (Benztropine Mesylate 0.5 Mg Tablet) 0.5 mg PO TID PRN PRN Reason: Extrapyramidal Effects Glucose (Glucose Gel 15 Gm Gel..Gram.) 15 gm PO Q15M PRN; Protocol PRN Reason: per Hypoglycemia Standing Ord. Guaifenesin/Dextromethorphan (Guaifenesin Dm 100/10/5 Ml 5 Ml Syrup) 5 ml PO Q4H PRN PRN Reason: Cough Last Admin: 02/27/24 08:31 Dose: 5 ml Hydroxyzine HCl (Hydroxyzine Hcl 25 Mg Tablet) 25 mg PO Q6H PRN PRN Reason: Anxiety Last Admin: 02/24/24 20:09 Dose: 25 mg Dextrose (D10) 250 mls @ 750 mls/hr IV Q15M PRN; Protocol PRN Reason: per Hypoglycemia Standing Ord. Insulin Glargine (Insulin Glargine,Hum.Rec.Anlog 100 Unit/Ml 10 Ml Vial) 20 unit SUBCUT BEDTIME [facility] Last Admin: 02/28/24 20:03 Dose: 20 unit Lamotrigine (Lamotrigine 100 Mg Tablet) 150 mg PO BEDTIME [facility] Last Admin: 02/28/24 20:02 Dose: 150 mg Levothyroxine Sodium (Levothyroxine Sodium 150 Mcg Tablet) 150 mcg PO DAILY@0630 [facility] Last Admin: 02/29/24 06:05 Dose: 150 mcg Magnesium Hydroxide (Milk Of Magnesia 30 Ml Oral.Susp) 30 ml PO DAILY PRN PRN Reason: Constipation Memantine (Memantine Hcl 5 Mg Tablet) 5 mg PO BID [facility] Last Admin: 02/29/24 08:42 Dose: 5 mg Metformin HCl (Metformin Hcl Er 500 Mg Tab.Er.24h) 1,000 mg PO DAILY@1700 [facility] Last Admin: 02/28/24 16:32 Dose: 1,000 mg Ondansetron HCl (Ondansetron Odt 8 Mg Tab.Rapdis) 8 mg TRANSLINGU Q8H PRN PRN Reason: Nausea and Vomiting Last Admin: 02/17/24 10:06 Dose: 8 mg Pseudoephedrine HCl (Pseudoephedrine Hcl 30 Mg Tablet) 30 mg PO Q4H PRN PRN Reason: Nasal Congestion Last Admin: 02/27/24 13:49 Dose: 30 mg Sertraline HCl (Sertraline Hcl 50 Mg Tablet) 50 mg PO DAILY [facility] Last Admin: 02/29/24 08:42 Dose: 50 mg Simethicone (Simethicone 80 Mg Tab.Chew) 80 mg PO QIDWMHS PRN PRN Reason: Gas Trazodone HCl (Trazodone Hcl 50 Mg Tablet) 50 mg PO BEDTIME MRX1 PRN PRN Reason: Insomnia Last Admin: 02/24/24 20:09 Dose: 50 mg Allergies Allergies Allergy/AdvReac Type Severity Reaction Status Date / Time amoxicillin [AMOXICILLIN] Allergy Mild VOMITING/ABD Verified 09/10/23 19:44 PAIN Assessment & Plan Assessment & Plan (1) Schizoaffective disorder: Status: Acute Code(s): F25.9 - Schizoaffective disorder, unspecified (2) Hypothyroidism: Status: Acute Code(s): E03.9 - Hypothyroidism, unspecified (3) Type 2 diabetes mellitus: Status: Acute Code(s): E11.9 - Type 2 diabetes mellitus without complications (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 Continue with same medications. 2. Waiting for placement. 02/25: Continue current regimen and plans 02/27. continue tx. 02/28: Continue current management and treatment plan. Reason for continued inpatient stay Substantial Risk for: inability to function and rapid decompensation Time Spent With Patient Time: Total time managing care of this patient today ____ minutes.
[2024-02-29] MEDS: metFORMIN HCl ER 500 MG TAB.ER.24H 1000 MG PO (16:25)
[2024-02-29 19:39] VITALS: BP 138/75; PULSE 73; TEMP 36.6; O2SAT 96
[2024-02-29] MEDS: Insulin Glargine,Hum.rec.anlog 100 UNIT/ML 10 ML VIAL 20 UNIT SUBCUT (20:15)
[2024-02-29] MEDS: traZODone HCL 50 MG TABLET PO (20:16)
[2024-02-29] MEDS: lamoTRIgine 100 MG TABLET 150 MG PO (20:16)
[2024-03-01] MEDS: guaiFENesin DM 100/10/5 ML 5 ML SYRUP PO ×2 (01:59→08:16)
[2024-03-01] MEDS: Levothyroxine Sodium 150 MCG TABLET PO (06:45)
[2024-03-01 06:59] LABS: Glucose, Whole Blood 133 mg/dL (60-115)
[2024-03-01 07:51] VITALS: BP 136/85; PULSE 68; RESP 16; TEMP 36.1; O2SAT 97
[2024-03-01] MEDS: Memantine HCl 5 MG TABLET PO ×2 (08:17→20:35)
[2024-03-01] MEDS: Pseudoephedrine HCL 30 MG TABLET PO (08:17)
[2024-03-01] MEDS: Acetaminophen 325 MG TABLET 650 MG PO (08:17)
[2024-03-01] MEDS: Sertraline HCL 50 MG TABLET PO (08:17)
--- NOTE | 2024-03-01 10:10 | P.PNPSI_ITS ---
Subjective Subjective Date of Service: 03/01/24 Reason For Visit: crisis Interim History: Pt sleeping through the night. No behavioral concerns. he denies any concerns. No SI/HI. taking medications as prescribed. Review of Systems Review of Systems Unremarkable Yes all other systems are reviewed and are negative and unobtainable due to endotracheal tube Constitutional: Reports as per HPI Eyes: Reports as per HPI Reports as per HPI Cardiovascular: Reports as per HPI Respiratory: Reports as per HPI Gastrointestinal: Reports as per HPI Genitourinary: Reports as per HPI Musculoskeletal: Reports as per HPI Skin/Breast: Reports as per HPI Reports as per HPI Psychiatric: Reports as per HPI Endocrine: Reports as per HPI Hematologic/Lymphatic: Reports as per HPI Allergic/Immunologic: Reports as per HPI Mental Status Exam Mental Status Exam Narrative: Ante room. Mask. The patient is blunted with poverty of content. No overt suspiciousness. Denied hallucinations. Denied SI or HI. Difficulty with decision-making impaired insight judgment Patient Appearance: Appropriate Patient Orientation: Person and Situation Level of Consciousness: Awake and Appropriate Patient Behavior: Guarded Mood Description: Calm Affect Description: Constricted Patient Cognition Impaired: Yes Ability to Follow Directions: Good Speech Pattern: Clear 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: Commodity Industry Analyst Impaired Diagnostics Vital Signs (24Hr): Vital Signs - 24 hr 02/29/24 19:39 03/01/24 07:51 Temperature 98 F 96.9 F Pulse Rate 73 68 Respiratory Rate 16 Blood Pressure 138/75 136/85 Pulse Oximetry 96 97 Oxygen Delivery Method Room Air Room Air BMI result Body Mass Index 31.7 Labs 09/10/23 20:00 02/27/24 08:55 Labs: Laboratory Results - last 48 hr 02/29/24 03/01/24 06:06 06:47 POC Glucose 120 H 133 H Imaging Radiology Impressions: ITS Impressions Brain MRI 09/19/23 20:33 IMPRESSION: 1. No demonstrated acute intracranial abnormalities. 2. Chronic mild to moderate nonspecific white matter changes, most notably in the deep white matter of the right frontal lobe. Mild to moderate generalized cerebral volume loss. Medications Medications Current Medications Acetaminophen (Acetaminophen 325 Mg Tablet) 650 mg PO Q6H PRN PRN Reason: Headache/Pain Mild Scale (1-3) Last Admin: 03/01/24 08:17 Dose: 650 mg Al Hydroxide/Mg Hydroxide (Magnesium Hydrox/Alum Hydrox 30 Ml Oral.Susp) 30 ml PO Q6H PRN PRN Reason: Heartburn/Nausea Last Admin: 11/27/23 10:48 Dose: 30 ml Aripiprazole (Aripiprazole Er 300 Mg Suser.Syr) 300 mg IM Q28D@0900 [facility] Last Admin: 02/05/24 10:14 Dose: 300 mg Benzocaine (Throat Lozenge, Medicated Lozenge) 1 lozenge MUCOUS MEM Q2H PRN PRN Reason: Sore Throat Last Admin: 12/30/23 20:59 Dose: 1 lozenge Benztropine Mesylate (Benztropine Mesylate 0.5 Mg Tablet) 0.5 mg PO TID PRN PRN Reason: Extrapyramidal Effects Glucose (Glucose Gel 15 Gm Gel..Gram.) 15 gm PO Q15M PRN; Protocol PRN Reason: per Hypoglycemia Standing Ord. Guaifenesin/Dextromethorphan (Guaifenesin Dm 100/10/5 Ml 5 Ml Syrup) 5 ml PO Q4H PRN PRN Reason: Cough Last Admin: 03/01/24 08:16 Dose: 5 ml Hydroxyzine HCl (Hydroxyzine Hcl 25 Mg Tablet) 25 mg PO Q6H PRN PRN Reason: Anxiety Last Admin: 02/24/24 20:09 Dose: 25 mg Dextrose (D10) 250 mls @ 750 mls/hr IV Q15M PRN; Protocol PRN Reason: per Hypoglycemia Standing Ord. Insulin Glargine (Insulin Glargine,Hum.Rec.Anlog 100 Unit/Ml 10 Ml Vial) 20 unit SUBCUT BEDTIME [facility] Last Admin: 02/29/24 20:15 Dose: 20 unit Lamotrigine (Lamotrigine 100 Mg Tablet) 150 mg PO BEDTIME [facility] Last Admin: 02/29/24 20:16 Dose: 150 mg Levothyroxine Sodium (Levothyroxine Sodium 150 Mcg Tablet) 150 mcg PO DAILY@0630 [facility] Last Admin: 03/01/24 06:45 Dose: 150 mcg Magnesium Hydroxide (Milk Of Magnesia 30 Ml Oral.Susp) 30 ml PO DAILY PRN PRN Reason: Constipation Memantine (Memantine Hcl 5 Mg Tablet) 5 mg PO BID [facility] Last Admin: 03/01/24 08:17 Dose: 5 mg Metformin HCl (Metformin Hcl Er 500 Mg Tab.Er.24h) 1,000 mg PO DAILY@1700 [facility] Last Admin: 02/29/24 16:25 Dose: 1,000 mg Ondansetron HCl (Ondansetron Odt 8 Mg Tab.Rapdis) 8 mg TRANSLINGU Q8H PRN PRN Reason: Nausea and Vomiting Last Admin: 02/17/24 10:06 Dose: 8 mg Pseudoephedrine HCl (Pseudoephedrine Hcl 30 Mg Tablet) 30 mg PO Q4H PRN PRN Reason: Nasal Congestion Last Admin: 03/01/24 08:17 Dose: 30 mg Sertraline HCl (Sertraline Hcl 50 Mg Tablet) 50 mg PO DAILY [facility] Last Admin: 03/01/24 08:17 Dose: 50 mg Simethicone (Simethicone 80 Mg Tab.Chew) 80 mg PO QIDWMHS PRN PRN Reason: Gas Trazodone HCl (Trazodone Hcl 50 Mg Tablet) 50 mg PO BEDTIME MRX1 PRN PRN Reason: Insomnia Last Admin: 02/29/24 20:16 Dose: 50 mg Allergies Allergies Allergy/AdvReac Type Severity Reaction Status Date / Time amoxicillin [AMOXICILLIN] Allergy Mild VOMITING/ABD Verified 09/10/23 19:44 PAIN Assessment & Plan Assessment & Plan (1) Schizoaffective disorder: Status: Acute Code(s): F25.9 - Schizoaffective disorder, unspecified (2) Hypothyroidism: Status: Acute Code(s): E03.9 - Hypothyroidism, unspecified (3) Type 2 diabetes mellitus: Status: Acute Code(s): E11.9 - Type 2 diabetes mellitus without complications (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 Continue with same medications. 2. Waiting for placement. 02/25: Continue current regimen and plans 02/27. continue tx. 02/28: Continue current management and treatment plan. 03/01: Continue current management and treatment plan. Reason for continued inpatient stay Substantial Risk for: inability to function and rapid decompensation Time Spent With Patient Time: Total time managing care of this patient today ____ minutes.
[2024-03-01] MEDS: metFORMIN HCl ER 500 MG TAB.ER.24H 1000 MG PO (16:44)
[2024-03-01 20:00] VITALS: BP 122/73; PULSE 79; RESP 16; TEMP 36.1; O2SAT 97
[2024-03-01] MEDS: lamoTRIgine 100 MG TABLET 150 MG PO (20:35)
[2024-03-01] MEDS: Insulin Glargine,Hum.rec.anlog 100 UNIT/ML 10 ML VIAL 20 UNIT SUBCUT (20:36)
[2024-03-02] MEDS: Levothyroxine Sodium 150 MCG TABLET PO (06:12)
[2024-03-02 06:49] LABS: Glucose, Whole Blood 106 mg/dL (60-115)
[2024-03-02 07:55] VITALS: BP 122/74; PULSE 82; RESP 16; TEMP 36.9; O2SAT 94
[2024-03-02] MEDS: Sertraline HCL 50 MG TABLET PO (08:17)
[2024-03-02] MEDS: Memantine HCl 5 MG TABLET PO ×2 (08:17→20:46)
--- NOTE | 2024-03-02 14:35 | P.PNPSI_ITS ---
Subjective Subjective Date of Service: 03/02/24 Reason For Visit: crisis Subjective Notes: Conditional Voluntary Interim History: The nursing staff reported no changes in mental status fully compliant with treatment. On interview the patient denies new symptoms, waiting for placement. Mental Status Exam Mental Status Exam Patient Appearance: Appropriate Patient Orientation: Person and Situation Level of Consciousness: Awake Patient Behavior: Guarded and Passive Mood Description: Withdrawn Affect Description: Constricted Patient Cognition Impaired: Yes Ability to Follow Directions: Good Speech Pattern: Clear 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: None Delusions: Not Present Thought Process: Distracted and Slowed Thinking Thought Content: positive for [place] and positive for Poverty of Content Judgement: Fair Diagnostics Vital Signs (24Hr): Vital Signs - 24 hr 03/01/24 20:00 03/02/24 07:55 Temperature 97 F 98.4 F Pulse Rate 79 82 Respiratory Rate 16 16 Blood Pressure 122/73 122/74 Pulse Oximetry 97 94 Oxygen Delivery Method Room Air Room Air BMI result Body Mass Index 31.7 Labs 09/10/23 20:00 02/27/24 08:55 Labs: Laboratory Results - last 48 hr 03/01/24 03/02/24 06:47 06:32 POC Glucose 133 H 106 Imaging Radiology Impressions: ITS Impressions Brain MRI 09/19/23 20:33 IMPRESSION: 1. No demonstrated acute intracranial abnormalities. 2. Chronic mild to moderate nonspecific white matter changes, most notably in the deep white matter of the right frontal lobe. Mild to moderate generalized cerebral volume loss. Medications Medications Current Medications Acetaminophen (Acetaminophen 325 Mg Tablet) 650 mg PO Q6H PRN PRN Reason: Headache/Pain Mild Scale (1-3) Last Admin: 03/01/24 08:17 Dose: 650 mg Al Hydroxide/Mg Hydroxide (Magnesium Hydrox/Alum Hydrox 30 Ml Oral.Susp) 30 ml PO Q6H PRN PRN Reason: Heartburn/Nausea Last Admin: 11/27/23 10:48 Dose: 30 ml Aripiprazole (Aripiprazole Er 300 Mg Suser.Syr) 300 mg IM Q28D@0900 [facility] Last Admin: 02/05/24 10:14 Dose: 300 mg Benzocaine (Throat Lozenge, Medicated Lozenge) 1 lozenge MUCOUS MEM Q2H PRN PRN Reason: Sore Throat Last Admin: 12/30/23 20:59 Dose: 1 lozenge Benztropine Mesylate (Benztropine Mesylate 0.5 Mg Tablet) 0.5 mg PO TID PRN PRN Reason: Extrapyramidal Effects Glucose (Glucose Gel 15 Gm Gel..Gram.) 15 gm PO Q15M PRN; Protocol PRN Reason: per Hypoglycemia Standing Ord. Guaifenesin/Dextromethorphan (Guaifenesin Dm 100/10/5 Ml 5 Ml Syrup) 5 ml PO Q4H PRN PRN Reason: Cough Last Admin: 03/01/24 08:16 Dose: 5 ml Hydroxyzine HCl (Hydroxyzine Hcl 25 Mg Tablet) 25 mg PO Q6H PRN PRN Reason: Anxiety Last Admin: 02/24/24 20:09 Dose: 25 mg Dextrose (D10) 250 mls @ 750 mls/hr IV Q15M PRN; Protocol PRN Reason: per Hypoglycemia Standing Ord. Insulin Glargine (Insulin Glargine,Hum.Rec.Anlog 100 Unit/Ml 10 Ml Vial) 20 unit SUBCUT BEDTIME [facility] Last Admin: 03/01/24 20:36 Dose: 20 unit Lamotrigine (Lamotrigine 100 Mg Tablet) 150 mg PO BEDTIME [facility] Last Admin: 03/01/24 20:35 Dose: 150 mg Levothyroxine Sodium (Levothyroxine Sodium 150 Mcg Tablet) 150 mcg PO DAILY@0630 [facility] Last Admin: 03/02/24 06:12 Dose: 150 mcg Magnesium Hydroxide (Milk Of Magnesia 30 Ml Oral.Susp) 30 ml PO DAILY PRN PRN Reason: Constipation Memantine (Memantine Hcl 5 Mg Tablet) 5 mg PO BID [facility] Last Admin: 03/02/24 08:17 Dose: 5 mg Metformin HCl (Metformin Hcl Er 500 Mg Tab.Er.24h) 1,000 mg PO DAILY@1700 [facility] Last Admin: 03/01/24 16:44 Dose: 1,000 mg Ondansetron HCl (Ondansetron Odt 8 Mg Tab.Rapdis) 8 mg TRANSLINGU Q8H PRN PRN Reason: Nausea and Vomiting Last Admin: 02/17/24 10:06 Dose: 8 mg Pseudoephedrine HCl (Pseudoephedrine Hcl 30 Mg Tablet) 30 mg PO Q4H PRN PRN Reason: Nasal Congestion Last Admin: 03/01/24 08:17 Dose: 30 mg Sertraline HCl (Sertraline Hcl 50 Mg Tablet) 50 mg PO DAILY [facility] Last Admin: 03/02/24 08:17 Dose: 50 mg Simethicone (Simethicone 80 Mg Tab.Chew) 80 mg PO QIDWMHS PRN PRN Reason: Gas Trazodone HCl (Trazodone Hcl 50 Mg Tablet) 50 mg PO BEDTIME MRX1 PRN PRN Reason: Insomnia Last Admin: 02/29/24 20:16 Dose: 50 mg Allergies Allergies Allergy/AdvReac Type Severity Reaction Status Date / Time amoxicillin [AMOXICILLIN] Allergy Mild VOMITING/ABD Verified 09/10/23 19:44 PAIN Assessment & Plan Assessment & Plan (1) Schizoaffective disorder: Status: Acute Code(s): F25.9 - Schizoaffective disorder, unspecified (2) Hypothyroidism: Status: Acute Code(s): E03.9 - Hypothyroidism, unspecified (3) Type 2 diabetes mellitus: Status: Acute Code(s): E11.9 - Type 2 diabetes mellitus without complications (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 Continue with same medications. 2. Waiting for placement. Reason for continued inpatient stay Substantial Risk for: inability to function, rapid decompensation and med/psych decompensation Time Spent With Patient Time: Total time managing care of this patient today __20__ minutes.
[2024-03-02] MEDS: metFORMIN HCl ER 500 MG TAB.ER.24H 1000 MG PO (16:28)
[2024-03-02 20:00] VITALS: BP 136/72; PULSE 75; RESP 16; TEMP 36.8; O2SAT 96
[2024-03-02] MEDS: Insulin Glargine,Hum.rec.anlog 100 UNIT/ML 10 ML VIAL 20 UNIT SUBCUT (20:45)
[2024-03-02] MEDS: lamoTRIgine 100 MG TABLET 150 MG PO (20:46)
[2024-03-02] MEDS: traZODone HCL 50 MG TABLET PO ×2 (20:47→23:44)
[2024-03-02] MEDS: hydrOXYzine HCL 25 MG TABLET PO (23:44)
[2024-03-03] MEDS: Levothyroxine Sodium 150 MCG TABLET PO (06:17)
[2024-03-03 06:42] LABS: Glucose, Whole Blood 132 mg/dL (60-115)
[2024-03-03 08:43] VITALS: BP 122/71; PULSE 78; RESP 18; TEMP 36.7; O2SAT 96
[2024-03-03] MEDS: Sertraline HCL 50 MG TABLET PO (08:45)
[2024-03-03] MEDS: Memantine HCl 5 MG TABLET PO ×2 (08:45→21:01)
[2024-03-03] MEDS: Pseudoephedrine HCL 30 MG TABLET PO (08:45)
[2024-03-03] MEDS: Acetaminophen 325 MG TABLET 650 MG PO (08:45)
--- NOTE | 2024-03-03 15:29 | HO.PSYCHPN ---
Subjective Subjective Date of Service: 03/03/24 Reason For Visit: crisis Subjective Notes: Conditional Voluntary Interim History: The nursing staff reported no changes in his mental status compliant with treatment. On interview the patient denies new symptoms waiting for placement. Mental Status Exam Mental Status Exam Patient Appearance: Appropriate Patient Orientation: Person and Situation Level of Consciousness: Awake and Appropriate Patient Behavior: Guarded and Passive Mood Description: Withdrawn Affect Description: Constricted Patient Cognition Impaired: Yes Ability to Follow Directions: Good Speech Pattern: Clear 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: None Delusions: Paranoid Ideation Thought Process: Distracted and Slowed Thinking Thought Content: positive for [place] and positive for Poverty of Content Judgement: Fair Diagnostics Vital Signs (24Hr): Vital Signs - 24 hr 03/02/24 20:00 03/03/24 08:43 Temperature 98.3 F 98.0 F Pulse Rate 75 78 Respiratory Rate 16 18 Blood Pressure 136/72 122/71 Pulse Oximetry 96 96 Oxygen Delivery Method Room Air Room Air BMI result Body Mass Index 31.7 Labs 09/10/23 20:00 02/27/24 08:55 Labs: Laboratory Results - last 48 hr 03/02/24 03/03/24 06:32 06:36 POC Glucose 106 132 H Imaging Radiology Impressions: ITS Impressions Brain MRI 09/19/23 20:33 IMPRESSION: 1. No demonstrated acute intracranial abnormalities. 2. Chronic mild to moderate nonspecific white matter changes, most notably in the deep white matter of the right frontal lobe. Mild to moderate generalized cerebral volume loss. Medications Medications Current Medications Acetaminophen (Acetaminophen 325 Mg Tablet) 650 mg PO Q6H PRN PRN Reason: Headache/Pain Mild Scale (1-3) Last Admin: 03/03/24 08:45 Dose: 650 mg Al Hydroxide/Mg Hydroxide (Magnesium Hydrox/Alum Hydrox 30 Ml Oral.Susp) 30 ml PO Q6H PRN PRN Reason: Heartburn/Nausea Last Admin: 11/27/23 10:48 Dose: 30 ml Aripiprazole (Aripiprazole Er 300 Mg Suser.Syr) 300 mg IM Q28D@0900 MANAS Last Admin: 02/05/24 10:14 Dose: 300 mg Benzocaine (Throat Lozenge, Medicated Lozenge) 1 lozenge MUCOUS MEM Q2H PRN PRN Reason: Sore Throat Last Admin: 12/30/23 20:59 Dose: 1 lozenge Benztropine Mesylate (Benztropine Mesylate 0.5 Mg Tablet) 0.5 mg PO TID PRN PRN Reason: Extrapyramidal Effects Glucose (Glucose Gel 15 Gm Gel..Gram.) 15 gm PO Q15M PRN; Protocol PRN Reason: per Hypoglycemia Standing Ord. Guaifenesin/Dextromethorphan (Guaifenesin Dm 100/10/5 Ml 5 Ml Syrup) 5 ml PO Q4H PRN PRN Reason: Cough Last Admin: 03/01/24 08:16 Dose: 5 ml Hydroxyzine HCl (Hydroxyzine Hcl 25 Mg Tablet) 25 mg PO Q6H PRN PRN Reason: Anxiety Last Admin: 03/02/24 23:44 Dose: 25 mg Dextrose (D10) 250 mls @ 750 mls/hr IV Q15M PRN; Protocol PRN Reason: per Hypoglycemia Standing Ord. Insulin Glargine (Insulin Glargine,Hum.Rec.Anlog 100 Unit/Ml 10 Ml Vial) 20 unit SUBCUT BEDTIME [facility] Last Admin: 03/02/24 20:45 Dose: 20 unit Lamotrigine (Lamotrigine 100 Mg Tablet) 150 mg PO BEDTIME [facility] Last Admin: 03/02/24 20:46 Dose: 150 mg Levothyroxine Sodium (Levothyroxine Sodium 150 Mcg Tablet) 150 mcg PO DAILY@0630 [facility] Last Admin: 03/03/24 06:17 Dose: 150 mcg Magnesium Hydroxide (Milk Of Magnesia 30 Ml Oral.Susp) 30 ml PO DAILY PRN PRN Reason: Constipation Memantine (Memantine Hcl 5 Mg Tablet) 5 mg PO BID [facility] Last Admin: 03/03/24 08:45 Dose: 5 mg Metformin HCl (Metformin Hcl Er 500 Mg Tab.Er.24h) 1,000 mg PO DAILY@1700 [facility] Last Admin: 03/02/24 16:28 Dose: 1,000 mg Ondansetron HCl (Ondansetron Odt 8 Mg Tab.Rapdis) 8 mg TRANSLINGU Q8H PRN PRN Reason: Nausea and Vomiting Last Admin: 02/17/24 10:06 Dose: 8 mg Pseudoephedrine HCl (Pseudoephedrine Hcl 30 Mg Tablet) 30 mg PO Q4H PRN PRN Reason: Nasal Congestion Last Admin: 03/03/24 08:45 Dose: 30 mg Sertraline HCl (Sertraline Hcl 50 Mg Tablet) 50 mg PO DAILY [facility]NA[facility] Last Admin: 03/03/24 08:45 Dose: 50 mg Simethicone (Simethicone 80 Mg Tab.Chew) 80 mg PO QIDWMHS PRN PRN Reason: Gas Trazodone HCl (Trazodone Hcl 50 Mg Tablet) 50 mg PO BEDTIME MRX1 PRN PRN Reason: Insomnia Last Admin: 03/02/24 23:44 Dose: 50 mg Allergies Allergies Allergy/AdvReac Type Severity Reaction Status Date / Time amoxicillin [AMOXICILLIN] Allergy Mild VOMITING/ABD Verified 09/10/23 19:44 PAIN Assessment & Plan Assessment & Plan (1) Schizoaffective disorder: Status: Acute Code(s): F25.9 - Schizoaffective disorder, unspecified (2) Hypothyroidism: Status: Acute Code(s): E03.9 - Hypothyroidism, unspecified (3) Type 2 diabetes mellitus: Status: Acute Code(s): E11.9 - Type 2 diabetes mellitus without complications (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 Continue with same medications. 2. Waiting for placement. Reason for continued inpatient stay Substantial Risk for: inability to function, rapid decompensation and med/psych decompensation Time Spent With Patient Time: Total time managing care of this patient today __20__ minutes.
[2024-03-03] MEDS: metFORMIN HCl ER 500 MG TAB.ER.24H 1000 MG PO (16:12)
[2024-03-03 20:00] VITALS: BP 136/74; PULSE 88; RESP 18; TEMP 36.8; O2SAT 97
[2024-03-03] MEDS: Insulin Glargine,Hum.rec.anlog 100 UNIT/ML 10 ML VIAL 20 UNIT SUBCUT (20:59)
[2024-03-03] MEDS: lamoTRIgine 100 MG TABLET 150 MG PO (21:00)
[2024-03-03] MEDS: traZODone HCL 50 MG TABLET PO (21:01)
[2024-03-03] MEDS: hydrOXYzine HCL 25 MG TABLET PO (21:01)
[2024-03-04] MEDS: Levothyroxine Sodium 150 MCG TABLET PO (05:57)
[2024-03-04 06:30] LABS: Glucose, Whole Blood 114 mg/dL (60-115)
[2024-03-04 08:00] VITALS: BP 110/60; PULSE 64; RESP 16; TEMP 36; O2SAT 93
[2024-03-04] MEDS: Sertraline HCL 50 MG TABLET PO (09:29)
[2024-03-04] MEDS: Memantine HCl 5 MG TABLET PO ×2 (09:29→20:15)
[2024-03-04] MEDS: ARIPIPRAZOLE 300 MG IM (09:30)
--- NOTE | 2024-03-04 13:15 | P.PNPSI_ITS ---
Subjective Subjective Date of Service: 03/04/24 Reason For Visit: crisis Subjective Notes: Conditional Voluntary Healthcare Proxy: No Guardianship: No Medical Problems Affecting Mental Status: Yes (neurocognitive effect on behavior) Interim History: 59 yo with schizoaffective disorder compounded by neurocog events resulting in odd /risky interpersonal behavior making him hard to place in group or retirement=- watching moving, reports he is doing ok - no complaints denies si/s/e of meds- sleep ok, eating ok Medication Compliance: Yes Side effects from medications: No Attending Groups: Yes Review of Systems Acute medical concerns: No Medical Review of Systems: unchanged Mental Status Exam Mental Status Exam Patient Appearance: Unkempt Patient Orientation: Person, Place and Situation Level of Consciousness: Awake Patient Behavior: Appropriate, Passive and Good Eye Contact Mood Description: Apathetic Affect Description: Blunted Patient Cognition Impaired: Yes Ability to Follow Directions: Fair Speech Pattern: Clear 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: None Delusions: Paranoid Ideation (baseline) Thought Process: Intact Thought Content: positive for [place] and positive for Poverty of Content Judgement: Poor Diagnostics Vital Signs (24Hr): Vital Signs - 24 hr 03/03/24 20:00 03/04/24 08:00 Temperature 98.3 F 96.8 F Pulse Rate 88 64 Respiratory Rate 18 16 Blood Pressure 136/74 110/60 Pulse Oximetry 97 93 Oxygen Delivery Method Room Air Room Air BMI result Body Mass Index 31.7 Labs 09/10/23 20:00 03/05/24 09:13 Labs: Laboratory Results - last 48 hr 03/03/24 03/04/24 06:36 06:17 POC Glucose 132 H 114 Imaging Radiology Impressions: ITS Impressions Brain MRI 09/19/23 20:33 IMPRESSION: 1. No demonstrated acute intracranial abnormalities. 2. Chronic mild to moderate nonspecific white matter changes, most notably in the deep white matter of the right frontal lobe. Mild to moderate generalized cerebral volume loss. Medications Medications Current Medications Acetaminophen (Acetaminophen 325 Mg Tablet) 650 mg PO Q6H PRN PRN Reason: Headache/Pain Mild Scale (1-3) Last Admin: 03/03/24 08:45 Dose: 650 mg Al Hydroxide/Mg Hydroxide (Magnesium Hydrox/Alum Hydrox 30 Ml Oral.Susp) 30 ml PO Q6H PRN PRN Reason: Heartburn/Nausea Last Admin: 11/27/23 10:48 Dose: 30 ml Aripiprazole (Aripiprazole Er 300 Mg Suser.Syr) 300 mg IM Q28D@0900 [facility] Last Admin: 03/04/24 09:30 Dose: 300 mg Benzocaine (Throat Lozenge, Medicated Lozenge) 1 lozenge MUCOUS MEM Q2H PRN PRN Reason: Sore Throat Last Admin: 12/30/23 20:59 Dose: 1 lozenge Benztropine Mesylate (Benztropine Mesylate 0.5 Mg Tablet) 0.5 mg PO TID PRN PRN Reason: Extrapyramidal Effects Glucose (Glucose Gel 15 Gm Gel..Gram.) 15 gm PO Q15M PRN; Protocol PRN Reason: per Hypoglycemia Standing Ord. Guaifenesin/Dextromethorphan (Guaifenesin Dm 100/10/5 Ml 5 Ml Syrup) 5 ml PO Q4H PRN PRN Reason: Cough Last Admin: 03/01/24 08:16 Dose: 5 ml Hydroxyzine HCl (Hydroxyzine Hcl 25 Mg Tablet) 25 mg PO Q6H PRN PRN Reason: Anxiety Last Admin: 03/03/24 21:01 Dose: 25 mg Dextrose (D10) 250 mls @ 750 mls/hr IV Q15M PRN; Protocol PRN Reason: per Hypoglycemia Standing Ord. Insulin Glargine (Insulin Glargine,Hum.Rec.Anlog 100 Unit/Ml 10 Ml Vial) 20 unit SUBCUT BEDTIME [facility] Last Admin: 03/03/24 20:59 Dose: 20 unit Lamotrigine (Lamotrigine 100 Mg Tablet) 150 mg PO BEDTIME [facility] Last Admin: 03/03/24 21:00 Dose: 150 mg Levothyroxine Sodium (Levothyroxine Sodium 150 Mcg Tablet) 150 mcg PO DAILY@0630 [facility] Last Admin: 03/04/24 05:57 Dose: 150 mcg Magnesium Hydroxide (Milk Of Magnesia 30 Ml Oral.Susp) 30 ml PO DAILY PRN PRN Reason: Constipation Memantine (Memantine Hcl 5 Mg Tablet) 5 mg PO BID [facility] Last Admin: 03/04/24 09:29 Dose: 5 mg Metformin HCl (Metformin Hcl Er 500 Mg Tab.Er.24h) 1,000 mg PO DAILY@1700 [facility] Last Admin: 03/03/24 16:12 Dose: 1,000 mg Ondansetron HCl (Ondansetron Odt 8 Mg Tab.Rapdis) 8 mg TRANSLINGU Q8H PRN PRN Reason: Nausea and Vomiting Last Admin: 02/17/24 10:06 Dose: 8 mg Pseudoephedrine HCl (Pseudoephedrine Hcl 30 Mg Tablet) 30 mg PO Q4H PRN PRN Reason: Nasal Congestion Last Admin: 03/03/24 08:45 Dose: 30 mg Sertraline HCl (Sertraline Hcl 50 Mg Tablet) 50 mg PO DAILY [facility]NAS Last Admin: 03/04/24 09:29 Dose: 50 mg Simethicone (Simethicone 80 Mg Tab.Chew) 80 mg PO QIDWMHS PRN PRN Reason: Gas Trazodone HCl (Trazodone Hcl 50 Mg Tablet) 50 mg PO BEDTIME MRX1 PRN PRN Reason: Insomnia Last Admin: 03/03/24 21:01 Dose: 50 mg Allergies Allergies Allergy/AdvReac Type Severity Reaction Status Date / Time amoxicillin [AMOXICILLIN] Allergy Mild VOMITING/ABD Verified 09/10/23 19:44 PAIN Assessment & Plan Assessment & Plan (1) Schizoaffective disorder: Status: Acute Code(s): F25.9 - Schizoaffective disorder, unspecified (2) Hypothyroidism: Status: Acute Code(s): E03.9 - Hypothyroidism, unspecified (3) Type 2 diabetes mellitus: Status: Acute Code(s): E11.9 - Type 2 diabetes mellitus without complications (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 Continue with same medications. 2. Waiting for placement. 03/04/24- no change ongoing placement issues, unable to function independently Patient educated on: other (placement issues) Informed Consent: understands Reason for continued inpatient stay Substantial Risk for: harm to others, inability to function and rapid decompensation Time Spent With Patient Time: Total time managing care of this patient today ____ minutes.
[2024-03-04] MEDS: metFORMIN HCl ER 500 MG TAB.ER.24H 1000 MG PO (16:02)
[2024-03-04 19:42] VITALS: BP 128/66; PULSE 74; TEMP 36.8; O2SAT 97
[2024-03-04] MEDS: Insulin Glargine,Hum.rec.anlog 100 UNIT/ML 10 ML VIAL 20 UNIT SUBCUT (20:14)
[2024-03-04] MEDS: hydrOXYzine HCL 25 MG TABLET PO (20:15)
[2024-03-04] MEDS: lamoTRIgine 100 MG TABLET 150 MG PO (20:15)
[2024-03-04] MEDS: traZODone HCL 50 MG TABLET PO (20:15)
[2024-03-05] MEDS: Levothyroxine Sodium 150 MCG TABLET PO (06:36)
[2024-03-05 06:54] LABS: Glucose, Whole Blood 114 mg/dL (60-115)
[2024-03-05 08:00] VITALS: BP 133/84; PULSE 75; RESP 18; TEMP 36.7; O2SAT 95
[2024-03-05] MEDS: Sertraline HCL 50 MG TABLET PO (08:30)
[2024-03-05] MEDS: Memantine HCl 5 MG TABLET PO ×2 (08:30→19:56)
[2024-03-05 10:45] LABS: Creatinine Clr Calc Pharmacy 87.3; Estimated Glomerular Filt Rate > 60
--- NOTE | 2024-03-05 12:51 | HO.PSYCHPN ---
Subjective Subjective Date of Service: 03/05/24 Reason For Visit: crisis Subjective Notes: Conditional Voluntary Interim History: The nursing staff reported the patient had been fully compliant with treatment, no changes in mental status. On interview the patient denies new symptoms, waiting for placement. Mental Status Exam Mental Status Exam Patient Appearance: Appropriate Patient Orientation: Person and Situation Level of Consciousness: Awake and Appropriate Patient Behavior: Guarded and Passive Mood Description: Withdrawn Affect Description: Constricted Patient Cognition Impaired: Yes Ability to Follow Directions: Good Speech Pattern: Clear 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: None Delusions: Not Present Thought Process: Distracted and Slowed Thinking Thought Content: positive for [place] and positive for Poverty of Content Judgement: Fair Diagnostics Vital Signs (24Hr): Vital Signs - 24 hr 03/04/24 19:42 03/05/24 08:00 Temperature 98.2 F 98.1 F Pulse Rate 74 75 Respiratory Rate 18 Blood Pressure 128/66 133/84 Pulse Oximetry 97 95 Oxygen Delivery Method Room Air Room Air BMI result Body Mass Index 31.7 Labs 09/10/23 20:00 03/05/24 09:13 Labs: Laboratory Results - last 48 hr 03/04/24 03/05/24 03/05/24 06:17 06:38 09:13 Creatinine 1.04 Estim Creat Clear Calc 87.3 Estimated GFR > 60 POC Glucose 114 114 Imaging Radiology Impressions: ITS Impressions Brain MRI 09/19/23 20:33 IMPRESSION: 1. No demonstrated acute intracranial abnormalities. 2. Chronic mild to moderate nonspecific white matter changes, most notably in the deep white matter of the right frontal lobe. Mild to moderate generalized cerebral volume loss. Medications Medications Current Medications Acetaminophen (Acetaminophen 325 Mg Tablet) 650 mg PO Q6H PRN PRN Reason: Headache/Pain Mild Scale (1-3) Last Admin: 03/03/24 08:45 Dose: 650 mg Al Hydroxide/Mg Hydroxide (Magnesium Hydrox/Alum Hydrox 30 Ml Oral.Susp) 30 ml PO Q6H PRN PRN Reason: Heartburn/Nausea Last Admin: 11/27/23 10:48 Dose: 30 ml Aripiprazole (Aripiprazole Er 300 Mg Suser.Syr) 300 mg IM Q28D@0900 MANAS Last Admin: 03/04/24 09:30 Dose: 300 mg Benzocaine (Throat Lozenge, Medicated Lozenge) 1 lozenge MUCOUS MEM Q2H PRN PRN Reason: Sore Throat Last Admin: 12/30/23 20:59 Dose: 1 lozenge Benztropine Mesylate (Benztropine Mesylate 0.5 Mg Tablet) 0.5 mg PO TID PRN PRN Reason: Extrapyramidal Effects Glucose (Glucose Gel 15 Gm Gel..Gram.) 15 gm PO Q15M PRN; Protocol PRN Reason: per Hypoglycemia Standing Ord. Guaifenesin/Dextromethorphan (Guaifenesin Dm 100/10/5 Ml 5 Ml Syrup) 5 ml PO Q4H PRN PRN Reason: Cough Last Admin: 03/01/24 08:16 Dose: 5 ml Hydroxyzine HCl (Hydroxyzine Hcl 25 Mg Tablet) 25 mg PO Q6H PRN PRN Reason: Anxiety Last Admin: 03/04/24 20:15 Dose: 25 mg Dextrose (D10) 250 mls @ 750 mls/hr IV Q15M PRN; Protocol PRN Reason: per Hypoglycemia Standing Ord. Insulin Glargine (Insulin Glargine,Hum.Rec.Anlog 100 Unit/Ml 10 Ml Vial) 20 unit SUBCUT BEDTIME [facility] Last Admin: 03/04/24 20:14 Dose: 20 unit Lamotrigine (Lamotrigine 100 Mg Tablet) 150 mg PO BEDTIME [facility] Last Admin: 03/04/24 20:15 Dose: 150 mg Levothyroxine Sodium (Levothyroxine Sodium 150 Mcg Tablet) 150 mcg PO DAILY@0630 [facility] Last Admin: 03/05/24 06:36 Dose: 150 mcg Magnesium Hydroxide (Milk Of Magnesia 30 Ml Oral.Susp) 30 ml PO DAILY PRN PRN Reason: Constipation Memantine (Memantine Hcl 5 Mg Tablet) 5 mg PO BID [facility] Last Admin: 03/05/24 08:30 Dose: 5 mg Metformin HCl (Metformin Hcl Er 500 Mg Tab.Er.24h) 1,000 mg PO DAILY@1700 [facility] Last Admin: 03/04/24 16:02 Dose: 1,000 mg Ondansetron HCl (Ondansetron Odt 8 Mg Tab.Rapdis) 8 mg TRANSLINGU Q8H PRN PRN Reason: Nausea and Vomiting Last Admin: 02/17/24 10:06 Dose: 8 mg Pseudoephedrine HCl (Pseudoephedrine Hcl 30 Mg Tablet) 30 mg PO Q4H PRN PRN Reason: Nasal Congestion Last Admin: 03/03/24 08:45 Dose: 30 mg Sertraline HCl (Sertraline Hcl 50 Mg Tablet) 50 mg PO DAILY [facility]NAS Last Admin: 03/05/24 08:30 Dose: 50 mg Simethicone (Simethicone 80 Mg Tab.Chew) 80 mg PO QIDWMHS PRN PRN Reason: Gas Trazodone HCl (Trazodone Hcl 50 Mg Tablet) 50 mg PO BEDTIME MRX1 PRN PRN Reason: Insomnia Last Admin: 03/04/24 20:15 Dose: 50 mg Allergies Allergies Allergy/AdvReac Type Severity Reaction Status Date / Time amoxicillin [AMOXICILLIN] Allergy Mild VOMITING/ABD Verified 09/10/23 19:44 PAIN Assessment & Plan Assessment & Plan (1) Schizoaffective disorder: Status: Acute Code(s): F25.9 - Schizoaffective disorder, unspecified (2) Hypothyroidism: Status: Acute Code(s): E03.9 - Hypothyroidism, unspecified (3) Type 2 diabetes mellitus: Status: Acute Code(s): E11.9 - Type 2 diabetes mellitus without complications (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 Continue with same medications. 2. Waiting for placement. Reason for continued inpatient stay Substantial Risk for: inability to function, rapid decompensation and med/psych decompensation Time Spent With Patient Time: Total time managing care of this patient today _20___ minutes.
[2024-03-05 13:09] VITALS: BMI 31.8
[2024-03-05] MEDS: metFORMIN HCl ER 500 MG TAB.ER.24H 1000 MG PO (17:51)
[2024-03-05 19:23] VITALS: BP 110/72; PULSE 80; TEMP 36; O2SAT 95
[2024-03-05] MEDS: lamoTRIgine 100 MG TABLET 150 MG PO (19:56)
[2024-03-05] MEDS: Insulin Glargine,Hum.rec.anlog 100 UNIT/ML 10 ML VIAL 20 UNIT SUBCUT (19:59)
[2024-03-05 20:32] LABS: Glucose, Whole Blood 141 mg/dL (60-115)
[2024-03-06] MEDS: Levothyroxine Sodium 150 MCG TABLET PO (06:37)
[2024-03-06 06:42] LABS: Glucose, Whole Blood 103 mg/dL (60-115)
[2024-03-06 08:00] VITALS: BP 126/76; PULSE 71; RESP 18; TEMP 36.8; O2SAT 96
[2024-03-06] MEDS: Sertraline HCL 50 MG TABLET PO (08:38)
[2024-03-06] MEDS: Memantine HCl 5 MG TABLET PO ×2 (08:38→20:12)
--- NOTE | 2024-03-06 14:46 | P.PNPSI_ITS ---
Subjective Subjective Date of Service: 03/06/24 Reason For Visit: crisis Subjective Notes: Conditional Voluntary Interim History: The nursing staff reported no changes in his mental status compliant with treatment. The social media marketing manager reported that the program will come to see him for possible placement. On interview the patient denies new symptoms, waiting for placement. Mental Status Exam Mental Status Exam Patient Appearance: Appropriate Patient Orientation: Person and Situation Level of Consciousness: Awake and Appropriate Patient Behavior: Cooperative Mood Description: Calm Affect Description: Calm and Constricted Patient Cognition Impaired: Yes Ability to Follow Directions: Good Speech Pattern: Clear 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: None Delusions: Ideas of Reference Thought Process: Distracted and Slowed Thinking Thought Content: positive for [place] and positive for Poverty of Content Judgement: Fair Diagnostics Vital Signs (24Hr): Vital Signs - 24 hr 03/05/24 19:23 03/06/24 08:00 Temperature 96.8 F 98.2 F Pulse Rate 80 71 Respiratory Rate 18 Blood Pressure 110/72 126/76 Pulse Oximetry 95 96 Oxygen Delivery Method Room Air Room Air BMI result Body Mass Index 31.8 Labs 09/10/23 20:00 03/05/24 09:13 Labs: Laboratory Results - last 48 hr 03/05/24 03/05/24 03/05/24 06:38 09:13 20:28 Creatinine 1.04 Estim Creat Clear Calc 87.3 Estimated GFR > 60 POC Glucose 114 141 H 03/06/24 06:37 Creatinine Estim Creat Clear Calc Estimated GFR POC Glucose 103 Imaging Radiology Impressions: ITS Impressions Brain MRI 09/19/23 20:33 IMPRESSION: 1. No demonstrated acute intracranial abnormalities. 2. Chronic mild to moderate nonspecific white matter changes, most notably in the deep white matter of the right frontal lobe. Mild to moderate generalized cerebral volume loss. Medications Medications Current Medications Acetaminophen (Acetaminophen 325 Mg Tablet) 650 mg PO Q6H PRN PRN Reason: Headache/Pain Mild Scale (1-3) Last Admin: 03/03/24 08:45 Dose: 650 mg Al Hydroxide/Mg Hydroxide (Magnesium Hydrox/Alum Hydrox 30 Ml Oral.Susp) 30 ml PO Q6H PRN PRN Reason: Heartburn/Nausea Last Admin: 11/27/23 10:48 Dose: 30 ml Aripiprazole (Aripiprazole Er 300 Mg Suser.Syr) 300 mg IM Q28D@0900 [facility]NA[facility] Last Admin: 03/04/24 09:30 Dose: 300 mg Benzocaine (Throat Lozenge, Medicated Lozenge) 1 lozenge MUCOUS MEM Q2H PRN PRN Reason: Sore Throat Last Admin: 12/30/23 20:59 Dose: 1 lozenge Benztropine Mesylate (Benztropine Mesylate 0.5 Mg Tablet) 0.5 mg PO TID PRN PRN Reason: Extrapyramidal Effects Glucose (Glucose Gel 15 Gm Gel..Gram.) 15 gm PO Q15M PRN; Protocol PRN Reason: per Hypoglycemia Standing Ord. Guaifenesin/Dextromethorphan (Guaifenesin Dm 100/10/5 Ml 5 Ml Syrup) 5 ml PO Q4H PRN PRN Reason: Cough Last Admin: 03/01/24 08:16 Dose: 5 ml Hydroxyzine HCl (Hydroxyzine Hcl 25 Mg Tablet) 25 mg PO Q6H PRN PRN Reason: Anxiety Last Admin: 03/04/24 20:15 Dose: 25 mg Dextrose (D10) 250 mls @ 750 mls/hr IV Q15M PRN; Protocol PRN Reason: per Hypoglycemia Standing Ord. Insulin Glargine (Insulin Glargine,Hum.Rec.Anlog 100 Unit/Ml 10 Ml Vial) 20 unit SUBCUT BEDTIME [facility] Last Admin: 03/05/24 19:59 Dose: 20 unit Lamotrigine (Lamotrigine 100 Mg Tablet) 150 mg PO BEDTIME [facility] Last Admin: 03/05/24 19:56 Dose: 150 mg Levothyroxine Sodium (Levothyroxine Sodium 150 Mcg Tablet) 150 mcg PO DAILY@0630 [facility] Last Admin: 03/06/24 06:37 Dose: 150 mcg Magnesium Hydroxide (Milk Of Magnesia 30 Ml Oral.Susp) 30 ml PO DAILY PRN PRN Reason: Constipation Memantine (Memantine Hcl 5 Mg Tablet) 5 mg PO BID [facility] Last Admin: 03/06/24 08:38 Dose: 5 mg Metformin HCl (Metformin Hcl Er 500 Mg Tab.Er.24h) 1,000 mg PO DAILY@1700 [facility] Last Admin: 03/05/24 17:51 Dose: 1,000 mg Ondansetron HCl (Ondansetron Odt 8 Mg Tab.Rapdis) 8 mg TRANSLINGU Q8H PRN PRN Reason: Nausea and Vomiting Last Admin: 12/16/24 10:06 Dose: 8 mg Pseudoephedrine HCl (Pseudoephedrine Hcl 30 Mg Tablet) 30 mg PO Q4H PRN PRN Reason: Nasal Congestion Last Admin: 03/03/24 08:45 Dose: 30 mg Sertraline HCl (Sertraline Hcl 50 Mg Tablet) 50 mg PO DAILY [facility] Last Admin: 03/06/24 08:38 Dose: 50 mg Simethicone (Simethicone 80 Mg Tab.Chew) 80 mg PO QIDWMHS PRN PRN Reason: Gas Trazodone HCl (Trazodone Hcl 50 Mg Tablet) 50 mg PO BEDTIME MRX1 PRN PRN Reason: Insomnia Last Admin: 03/04/24 20:15 Dose: 50 mg Allergies Allergies Allergy/AdvReac Type Severity Reaction Status Date / Time amoxicillin [AMOXICILLIN] Allergy Mild VOMITING/ABD Verified 09/10/23 19:44 PAIN Assessment & Plan Assessment & Plan (1) Schizoaffective disorder: Status: Acute Code(s): F25.9 - Schizoaffective disorder, unspecified (2) Hypothyroidism: Status: Acute Code(s): E03.9 - Hypothyroidism, unspecified (3) Type 2 diabetes mellitus: Status: Acute Code(s): E11.9 - Type 2 diabetes mellitus without complications (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 Continue with same medications. 2. Waiting for placement. 03/04/24- no change ongoing placement issues, unable to function independently Reason for continued inpatient stay Substantial Risk for: inability to function, rapid decompensation and med/psych decompensation Time Spent With Patient Time: Total time managing care of this patient today _20___ minutes.
[2024-03-06] MEDS: metFORMIN HCl ER 500 MG TAB.ER.24H 1000 MG PO (16:01)
[2024-03-06 20:00] VITALS: BP 130/69; PULSE 86; TEMP 36.8
[2024-03-06] MEDS: Insulin Glargine,Hum.rec.anlog 100 UNIT/ML 10 ML VIAL 20 UNIT SUBCUT (20:09)
[2024-03-06] MEDS: lamoTRIgine 100 MG TABLET 150 MG PO (20:11)
[2024-03-06] MEDS: hydrOXYzine HCL 25 MG TABLET PO (20:12)
[2024-03-06] MEDS: traZODone HCL 50 MG TABLET PO ×2 (20:12→21:21)
[2024-03-07] MEDS: Levothyroxine Sodium 150 MCG TABLET PO (06:07)
[2024-03-07 06:39] LABS: Glucose, Whole Blood 103 mg/dL (60-115)
[2024-03-07 08:00] VITALS: BP 115/78; PULSE 69; RESP 18; TEMP 36.8; O2SAT 98
[2024-03-07] MEDS: Memantine HCl 5 MG TABLET PO ×2 (08:32→20:59)
[2024-03-07] MEDS: Sertraline HCL 50 MG TABLET PO (08:32)
--- NOTE | 2024-03-07 08:44 | P.PNPSI_ITS ---
Subjective Subjective Date of Service: 03/07/24 Reason For Visit: crisis Subjective Notes: Conditional Voluntary Healthcare Proxy: No Guardianship: No Medical Problems Affecting Mental Status: No (no change anyway) Interim History: 59 yo with neurocog decline on top of schizoaffective do waiting for placement- denies si/psychosis or med s/e- slept and eating ok - Medication Compliance: Yes Side effects from medications: No Attending Groups: Intermittent Review of Systems Acute medical concerns: No Medical Review of Systems: unchanged Mental Status Exam Mental Status Exam Patient Appearance: Unkempt Patient Orientation: Person, Place and Situation Level of Consciousness: Awake Patient Behavior: Appropriate, Cooperative and Passive Mood Description: Calm Affect Description: Flat Ability to Follow Directions: Fair Speech Pattern: Clear Thought Process: Intact and Goal Oriented Thought Content: positive for Poverty of Content Judgement: Fair Diagnostics Vital Signs (24Hr): Vital Signs - 24 hr 03/06/24 20:00 Temperature 98.2 F Pulse Rate 86 Blood Pressure 130/69 Oxygen Delivery Method Room Air BMI result Body Mass Index 31.8 Labs 09/10/23 20:00 03/05/24 09:13 Labs: Laboratory Results - last 48 hr 03/05/24 03/05/24 03/06/24 09:13 20:28 06:37 Creatinine 1.04 Estim Creat Clear Calc 87.3 Estimated GFR > 60 POC Glucose 141 H 103 03/07/24 06:33 Creatinine Estim Creat Clear Calc Estimated GFR POC Glucose 103 Imaging Radiology Impressions: ITS Impressions Brain MRI 09/19/23 20:33 IMPRESSION: 1. No demonstrated acute intracranial abnormalities. 2. Chronic mild to moderate nonspecific white matter changes, most notably in the deep white matter of the right frontal lobe. Mild to moderate generalized cerebral volume loss. Medications Medications Current Medications Acetaminophen (Acetaminophen 325 Mg Tablet) 650 mg PO Q6H PRN PRN Reason: Headache/Pain Mild Scale (1-3) Last Admin: 03/03/24 08:45 Dose: 650 mg Al Hydroxide/Mg Hydroxide (Magnesium Hydrox/Alum Hydrox 30 Ml Oral.Susp) 30 ml PO Q6H PRN PRN Reason: Heartburn/Nausea Last Admin: 11/27/23 10:48 Dose: 30 ml Aripiprazole (Aripiprazole Er 300 Mg Suser.Syr) 300 mg IM Q28D@0900 MANAS Last Admin: 03/04/24 09:30 Dose: 300 mg Benzocaine (Throat Lozenge, Medicated Lozenge) 1 lozenge MUCOUS MEM Q2H PRN PRN Reason: Sore Throat Last Admin: 12/30/23 20:59 Dose: 1 lozenge Benztropine Mesylate (Benztropine Mesylate 0.5 Mg Tablet) 0.5 mg PO TID PRN PRN Reason: Extrapyramidal Effects Glucose (Glucose Gel 15 Gm Gel..Gram.) 15 gm PO Q15M PRN; Protocol PRN Reason: per Hypoglycemia Standing Ord. Guaifenesin/Dextromethorphan (Guaifenesin Dm 100/10/5 Ml 5 Ml Syrup) 5 ml PO Q4H PRN PRN Reason: Cough Last Admin: 03/01/24 08:16 Dose: 5 ml Hydroxyzine HCl (Hydroxyzine Hcl 25 Mg Tablet) 25 mg PO Q6H PRN PRN Reason: Anxiety Last Admin: 03/06/24 20:12 Dose: 25 mg Dextrose (D10) 250 mls @ 750 mls/hr IV Q15M PRN; Protocol PRN Reason: per Hypoglycemia Standing Ord. Insulin Glargine (Insulin Glargine,Hum.Rec.Anlog 100 Unit/Ml 10 Ml Vial) 20 unit SUBCUT BEDTIME [facility] Last Admin: 03/06/24 20:09 Dose: 20 unit Lamotrigine (Lamotrigine 100 Mg Tablet) 150 mg PO BEDTIME [facility] Last Admin: 03/06/24 20:11 Dose: 150 mg Levothyroxine Sodium (Levothyroxine Sodium 150 Mcg Tablet) 150 mcg PO DAILY@0630 [facility] Last Admin: 03/07/24 06:07 Dose: 150 mcg Magnesium Hydroxide (Milk Of Magnesia 30 Ml Oral.Susp) 30 ml PO DAILY PRN PRN Reason: Constipation Memantine (Memantine Hcl 5 Mg Tablet) 5 mg PO BID [facility] Last Admin: 03/07/24 08:32 Dose: 5 mg Metformin HCl (Metformin Hcl Er 500 Mg Tab.Er.24h) 1,000 mg PO DAILY@1700 [facility] Last Admin: 03/06/24 16:01 Dose: 1,000 mg Ondansetron HCl (Ondansetron Odt 8 Mg Tab.Rapdis) 8 mg TRANSLINGU Q8H PRN PRN Reason: Nausea and Vomiting Last Admin: 12/16/24 10:06 Dose: 8 mg Pseudoephedrine HCl (Pseudoephedrine Hcl 30 Mg Tablet) 30 mg PO Q4H PRN PRN Reason: Nasal Congestion Last Admin: 03/03/24 08:45 Dose: 30 mg Sertraline HCl (Sertraline Hcl 50 Mg Tablet) 50 mg PO DAILY [facility] Last Admin: 03/07/24 08:32 Dose: 50 mg Simethicone (Simethicone 80 Mg Tab.Chew) 80 mg PO QIDWMHS PRN PRN Reason: Gas Trazodone HCl (Trazodone Hcl 50 Mg Tablet) 50 mg PO BEDTIME MRX1 PRN PRN Reason: Insomnia Last Admin: 03/06/24 21:21 Dose: 50 mg Allergies Allergies Allergy/AdvReac Type Severity Reaction Status Date / Time amoxicillin [AMOXICILLIN] Allergy Mild VOMITING/ABD Verified 09/10/23 19:44 PAIN Assessment & Plan Assessment & Plan (1) Schizoaffective disorder: Status: Acute Code(s): F25.9 - Schizoaffective disorder, unspecified (2) Hypothyroidism: Status: Acute Code(s): E03.9 - Hypothyroidism, unspecified (3) Type 2 diabetes mellitus: Status: Acute Code(s): E11.9 - Type 2 diabetes mellitus without complications (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 Continue with same medications. 2. Waiting for placement. 03/04/24- no change ongoing placement issues, unable to function independently 03/07/24 - awaiting placement unable to live independently Reason for continued inpatient stay Substantial Risk for: inability to function and rapid decompensation Time Spent With Patient Time: Total time managing care of this patient today ____ minutes.
[2024-03-07] MEDS: metFORMIN HCl ER 500 MG TAB.ER.24H 1000 MG PO (16:38)
[2024-03-07 20:00] VITALS: BP 105/75; PULSE 71; RESP 18; TEMP 36.6; O2SAT 100
[2024-03-07] MEDS: lamoTRIgine 100 MG TABLET 150 MG PO (20:58)
[2024-03-07] MEDS: traZODone HCL 50 MG TABLET PO (20:59)
[2024-03-07] MEDS: Insulin Glargine,Hum.rec.anlog 100 UNIT/ML 10 ML VIAL 20 UNIT SUBCUT (21:00)
[2024-03-08] MEDS: Levothyroxine Sodium 150 MCG TABLET PO (06:16)
[2024-03-08 06:27] LABS: Glucose, Whole Blood 116 mg/dL (60-115)
[2024-03-08 08:10] VITALS: BP 136/68; PULSE 84; RESP 16; TEMP 36.3; O2SAT 97
[2024-03-08] MEDS: Memantine HCl 5 MG TABLET PO ×2 (08:50→20:14)
[2024-03-08] MEDS: Sertraline HCL 50 MG TABLET PO (08:50)
--- NOTE | 2024-03-08 10:07 | PC.NURSE ---
Joe is noted to be quite intrusive with other peers and he was observed coming out of a peer's room. He was instructed to stay out of peer's rooms by this keno writer and Joe verbalized understanding. Dara Marquis notified and order for 5 minute checks placed.
--- NOTE | 2024-03-08 12:08 | HO.PSYCHPN ---
Subjective Subjective Date of Service: 03/08/24 Reason For Visit: crisis Subjective Notes: Conditional Voluntary Healthcare Proxy: No Guardianship: No Medical Problems Affecting Mental Status: Yes (neurocog do) Interim History: 59 yo intrusive into other patient's room, that he was worried about who had labile affect last pm -so put on 5 min checks- also tried to intrude on nursing intervention on another patient who was throwing himself on floor- Pt reports he is aware that staff need to take care but he says that is just the kind of person he is -caring/concerned worried about his friends Medication Compliance: Yes Side effects from medications: No Attending Groups: Yes Review of Systems Acute medical concerns: No Medical Review of Systems: unchanged Mental Status Exam Mental Status Exam Patient Appearance: Unkempt Patient Orientation: Person, Place, Time and Situation Level of Consciousness: Awake Patient Behavior: Invasion - Personal Space Mood Description: Apprehensive Affect Description: Blunted Patient Cognition Impaired: Yes Ability to Follow Directions: Fair Speech Pattern: Clear 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: None Delusions: Not Present Thought Process: Intact and Goal Oriented Thought Content: positive for Poverty of Content Judgement: Poor Diagnostics Vital Signs (24Hr): Vital Signs - 24 hr 03/07/24 20:00 03/08/24 08:10 Temperature 98 F 97.3 F Pulse Rate 71 84 Respiratory Rate 18 16 Blood Pressure 105/75 136/68 Pulse Oximetry 100 97 Oxygen Delivery Method Room Air Room Air BMI result Body Mass Index 31.8 Labs 09/10/23 20:00 03/05/24 09:13 Labs: Laboratory Results - last 48 hr 03/07/24 03/08/24 06:33 06:22 POC Glucose 103 116 H Imaging Radiology Impressions: ITS Impressions Brain MRI 09/19/23 20:33 IMPRESSION: 1. No demonstrated acute intracranial abnormalities. 2. Chronic mild to moderate nonspecific white matter changes, most notably in the deep white matter of the right frontal lobe. Mild to moderate generalized cerebral volume loss. Medications Medications Current Medications Acetaminophen (Acetaminophen 325 Mg Tablet) 650 mg PO Q6H PRN PRN Reason: Headache/Pain Mild Scale (1-3) Last Admin: 03/03/24 08:45 Dose: 650 mg Al Hydroxide/Mg Hydroxide (Magnesium Hydrox/Alum Hydrox 30 Ml Oral.Susp) 30 ml PO Q6H PRN PRN Reason: Heartburn/Nausea Last Admin: 11/27/23 10:48 Dose: 30 ml Aripiprazole (Aripiprazole Er 300 Mg Suser.Syr) 300 mg IM Q28D@0900 [facility] Last Admin: 03/04/24 09:30 Dose: 300 mg Benzocaine (Throat Lozenge, Medicated Lozenge) 1 lozenge MUCOUS MEM Q2H PRN PRN Reason: Sore Throat Last Admin: 12/30/23 20:59 Dose: 1 lozenge Benztropine Mesylate (Benztropine Mesylate 0.5 Mg Tablet) 0.5 mg PO TID PRN PRN Reason: Extrapyramidal Effects Glucose (Glucose Gel 15 Gm Gel..Gram.) 15 gm PO Q15M PRN; Protocol PRN Reason: per Hypoglycemia Standing Ord. Guaifenesin/Dextromethorphan (Guaifenesin Dm 100/10/5 Ml 5 Ml Syrup) 5 ml PO Q4H PRN PRN Reason: Cough Last Admin: 03/01/24 08:16 Dose: 5 ml Hydroxyzine HCl (Hydroxyzine Hcl 25 Mg Tablet) 25 mg PO Q6H PRN PRN Reason: Anxiety Last Admin: 03/06/24 20:12 Dose: 25 mg Dextrose (D10) 250 mls @ 750 mls/hr IV Q15M PRN; Protocol PRN Reason: per Hypoglycemia Standing Ord. Insulin Glargine (Insulin Glargine,Hum.Rec.Anlog 100 Unit/Ml 10 Ml Vial) 20 unit SUBCUT BEDTIME [facility] Last Admin: 03/07/24 21:00 Dose: 20 unit Lamotrigine (Lamotrigine 100 Mg Tablet) 150 mg PO BEDTIME [facility] Last Admin: 03/07/24 20:58 Dose: 150 mg Levothyroxine Sodium (Levothyroxine Sodium 150 Mcg Tablet) 150 mcg PO DAILY@0630 [facility] Last Admin: 03/08/24 06:16 Dose: 150 mcg Magnesium Hydroxide (Milk Of Magnesia 30 Ml Oral.Susp) 30 ml PO DAILY PRN PRN Reason: Constipation Memantine (Memantine Hcl 5 Mg Tablet) 5 mg PO BID [facility] Last Admin: 03/08/24 08:50 Dose: 5 mg Metformin HCl (Metformin Hcl Er 500 Mg Tab.Er.24h) 1,000 mg PO DAILY@1700 [facility] Last Admin: 03/07/24 16:38 Dose: 1,000 mg Ondansetron HCl (Ondansetron Odt 8 Mg Tab.Rapdis) 8 mg TRANSLINGU Q8H PRN PRN Reason: Nausea and Vomiting Last Admin: 02/17/24 10:06 Dose: 8 mg Pseudoephedrine HCl (Pseudoephedrine Hcl 30 Mg Tablet) 30 mg PO Q4H PRN PRN Reason: Nasal Congestion Last Admin: 03/03/24 08:45 Dose: 30 mg Sertraline HCl (Sertraline Hcl 50 Mg Tablet) 50 mg PO DAILY [facility] Last Admin: 03/08/24 08:50 Dose: 50 mg Simethicone (Simethicone 80 Mg Tab.Chew) 80 mg PO QIDWMHS PRN PRN Reason: Gas Trazodone HCl (Trazodone Hcl 50 Mg Tablet) 50 mg PO BEDTIME MRX1 PRN PRN Reason: Insomnia Last Admin: 03/07/24 20:59 Dose: 50 mg Allergies Allergies Allergy/AdvReac Type Severity Reaction Status Date / Time amoxicillin [AMOXICILLIN] Allergy Mild VOMITING/ABD Verified 09/10/23 19:44 PAIN Assessment & Plan Assessment & Plan (1) Schizoaffective disorder: Status: Acute Code(s): F25.9 - Schizoaffective disorder, unspecified (2) Hypothyroidism: Status: Acute Code(s): E03.9 - Hypothyroidism, unspecified (3) Type 2 diabetes mellitus: Status: Acute Code(s): E11.9 - Type 2 diabetes mellitus without complications (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 Continue with same medications. 2. Waiting for placement. 03/04/24- no change ongoing placement issues, unable to function independently 03/07/24 - awaiting placement unable to live independently 03/08/24 patient reminding us why he needs continued support/and impaired judgement intrussive in others care- Patient educated on: other (not to engage in other patient's care, boundaries) Informed Consent: understands and further education needed Reason for continued inpatient stay Substantial Risk for: inability to function and rapid decompensation Time Spent With Patient Time: Total time managing care of this patient today ____ minutes.
[2024-03-08] MEDS: metFORMIN HCl ER 500 MG TAB.ER.24H 1000 MG PO (16:34)
[2024-03-08 20:00] VITALS: BP 122/73; PULSE 73; RESP 18; TEMP 36.1; O2SAT 96
[2024-03-08] MEDS: Insulin Glargine,Hum.rec.anlog 100 UNIT/ML 10 ML VIAL 20 UNIT SUBCUT (20:13)
[2024-03-08] MEDS: lamoTRIgine 100 MG TABLET 150 MG PO (20:13)
[2024-03-08] MEDS: traZODone HCL 50 MG TABLET PO ×2 (20:14→23:31)
[2024-03-09] MEDS: Levothyroxine Sodium 150 MCG TABLET PO (06:01)
[2024-03-09 06:16] LABS: Glucose, Whole Blood 141 mg/dL (60-115)
[2024-03-09 08:00] VITALS: BP 116/73; PULSE 85; RESP 16; TEMP 36.4; O2SAT 96
[2024-03-09] MEDS: Sertraline HCL 50 MG TABLET PO (08:37)
[2024-03-09] MEDS: Memantine HCl 5 MG TABLET PO ×2 (08:37→20:22)
--- NOTE | 2024-03-09 15:01 | HO.PSYCHPN ---
Subjective Subjective Date of Service: 03/09/24 Reason For Visit: crisis Subjective Notes: Conditional Voluntary Interim History: The nursing staff reported the patient had been compliant with treatment no changes in his mental status. Interview the patient denies new symptoms waiting for placement. Mental Status Exam Mental Status Exam Patient Appearance: Appropriate Patient Orientation: Person and Situation Level of Consciousness: Awake and Appropriate Patient Behavior: Guarded and Passive Mood Description: Withdrawn Affect Description: Constricted Patient Cognition Impaired: Yes Ability to Follow Directions: Good Speech Pattern: Clear 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: None Delusions: Ideas of Reference Thought Process: Distracted and Slowed Thinking Thought Content: positive for [place] and positive for Poverty of Content Judgement: Fair Diagnostics Vital Signs (24Hr): Vital Signs - 24 hr 03/08/24 20:00 03/09/24 08:00 Temperature 97 F 97.6 F Pulse Rate 73 85 Respiratory Rate 18 16 Blood Pressure 122/73 116/73 Pulse Oximetry 96 96 Oxygen Delivery Method Room Air Room Air BMI result Body Mass Index 31.8 Labs 09/10/23 20:00 03/05/24 09:13 Labs: Laboratory Results - last 48 hr 03/08/24 03/09/24 06:22 06:11 POC Glucose 116 H 141 H Imaging Radiology Impressions: ITS Impressions Brain MRI 09/19/23 20:33 IMPRESSION: 1. No demonstrated acute intracranial abnormalities. 2. Chronic mild to moderate nonspecific white matter changes, most notably in the deep white matter of the right frontal lobe. Mild to moderate generalized cerebral volume loss. Medications Medications Current Medications Acetaminophen (Acetaminophen 325 Mg Tablet) 650 mg PO Q6H PRN PRN Reason: Headache/Pain Mild Scale (1-3) Last Admin: 03/03/24 08:45 Dose: 650 mg Al Hydroxide/Mg Hydroxide (Magnesium Hydrox/Alum Hydrox 30 Ml Oral.Susp) 30 ml PO Q6H PRN PRN Reason: Heartburn/Nausea Last Admin: 11/27/23 10:48 Dose: 30 ml Aripiprazole (Aripiprazole Er 300 Mg Suser.Syr) 300 mg IM Q28D@0900 [facility]NAS Last Admin: 03/04/24 09:30 Dose: 300 mg Benzocaine (Throat Lozenge, Medicated Lozenge) 1 lozenge MUCOUS MEM Q2H PRN PRN Reason: Sore Throat Last Admin: 12/30/23 20:59 Dose: 1 lozenge Benztropine Mesylate (Benztropine Mesylate 0.5 Mg Tablet) 0.5 mg PO TID PRN PRN Reason: Extrapyramidal Effects Glucose (Glucose Gel 15 Gm Gel..Gram.) 15 gm PO Q15M PRN; Protocol PRN Reason: per Hypoglycemia Standing Ord. Guaifenesin/Dextromethorphan (Guaifenesin Dm 100/10/5 Ml 5 Ml Syrup) 5 ml PO Q4H PRN PRN Reason: Cough Last Admin: 03/01/24 08:16 Dose: 5 ml Hydroxyzine HCl (Hydroxyzine Hcl 25 Mg Tablet) 25 mg PO Q6H PRN PRN Reason: Anxiety Last Admin: 03/06/24 20:12 Dose: 25 mg Dextrose (D10) 250 mls @ 750 mls/hr IV Q15M PRN; Protocol PRN Reason: per Hypoglycemia Standing Ord. Insulin Glargine (Insulin Glargine,Hum.Rec.Anlog 100 Unit/Ml 10 Ml Vial) 20 unit SUBCUT BEDTIME [facility] Last Admin: 03/08/24 20:13 Dose: 20 unit Lamotrigine (Lamotrigine 100 Mg Tablet) 150 mg PO BEDTIME [facility] Last Admin: 03/08/24 20:13 Dose: 150 mg Levothyroxine Sodium (Levothyroxine Sodium 150 Mcg Tablet) 150 mcg PO DAILY@0630 [facility] Last Admin: 03/09/24 06:01 Dose: 150 mcg Magnesium Hydroxide (Milk Of Magnesia 30 Ml Oral.Susp) 30 ml PO DAILY PRN PRN Reason: Constipation Memantine (Memantine Hcl 5 Mg Tablet) 5 mg PO BID [facility] Last Admin: 03/09/24 08:37 Dose: 5 mg Metformin HCl (Metformin Hcl Er 500 Mg Tab.Er.24h) 1,000 mg PO DAILY@1700 [facility] Last Admin: 03/08/24 16:34 Dose: 1,000 mg Ondansetron HCl (Ondansetron Odt 8 Mg Tab.Rapdis) 8 mg TRANSLINGU Q8H PRN PRN Reason: Nausea and Vomiting Last Admin: 02/17/24 10:06 Dose: 8 mg Pseudoephedrine HCl (Pseudoephedrine Hcl 30 Mg Tablet) 30 mg PO Q4H PRN PRN Reason: Nasal Congestion Last Admin: 03/03/24 08:45 Dose: 30 mg Sertraline HCl (Sertraline Hcl 50 Mg Tablet) 50 mg PO DAILY [facility] Last Admin: 03/09/24 08:37 Dose: 50 mg Simethicone (Simethicone 80 Mg Tab.Chew) 80 mg PO QIDWMHS PRN PRN Reason: Gas Trazodone HCl (Trazodone Hcl 50 Mg Tablet) 50 mg PO BEDTIME MRX1 PRN PRN Reason: Insomnia Last Admin: 03/08/24 23:31 Dose: 50 mg Allergies Allergies Allergy/AdvReac Type Severity Reaction Status Date / Time amoxicillin [AMOXICILLIN] Allergy Mild VOMITING/ABD Verified 09/10/23 19:44 PAIN Assessment & Plan Assessment & Plan (1) Schizoaffective disorder: Status: Acute Code(s): F25.9 - Schizoaffective disorder, unspecified (2) Hypothyroidism: Status: Acute Code(s): E03.9 - Hypothyroidism, unspecified (3) Type 2 diabetes mellitus: Status: Acute Code(s): E11.9 - Type 2 diabetes mellitus without complications (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 Continue with same medications. 2. Waiting for placement. Reason for continued inpatient stay Substantial Risk for: inability to function, rapid decompensation and med/psych decompensation Time Spent With Patient Time: Total time managing care of this patient today _20___ minutes.
[2024-03-09] MEDS: metFORMIN HCl ER 500 MG TAB.ER.24H 1000 MG PO (16:15)
[2024-03-09 20:00] VITALS: BP 127/68; PULSE 82; RESP 18; TEMP 36; O2SAT 98
[2024-03-09] MEDS: Insulin Glargine,Hum.rec.anlog 100 UNIT/ML 10 ML VIAL 20 UNIT SUBCUT (20:21)
[2024-03-09] MEDS: lamoTRIgine 100 MG TABLET 150 MG PO (20:22)
[2024-03-09] MEDS: traZODone HCL 50 MG TABLET PO (20:22)
[2024-03-09] MEDS: hydrOXYzine HCL 25 MG TABLET PO (20:22)
[2024-03-10] MEDS: Levothyroxine Sodium 150 MCG TABLET PO (06:07)
[2024-03-10 06:27] LABS: Glucose, Whole Blood 102 mg/dL (60-115)
[2024-03-10 08:21] VITALS: BP 125/72; PULSE 80; RESP 18; TEMP 36.6; O2SAT 97
[2024-03-10] MEDS: Memantine HCl 5 MG TABLET PO ×2 (09:03→19:42)
[2024-03-10] MEDS: Sertraline HCL 50 MG TABLET PO (09:03)
--- NOTE | 2024-03-10 15:00 | HO.PSYCHPN ---
Subjective Subjective Date of Service: 03/10/24 Reason For Visit: crisis Subjective Notes: Conditional Voluntary Interim History: The nursing staff reported no changes in mental status compliant with treatment. On interview the patient denies new symptoms, waiting for placement. Mental Status Exam Mental Status Exam Patient Appearance: Appropriate Patient Orientation: Person and Situation Level of Consciousness: Awake and Appropriate Patient Behavior: Guarded and Passive Mood Description: Withdrawn Affect Description: Constricted Patient Cognition Impaired: Yes Ability to Follow Directions: Good Speech Pattern: Clear 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: None Delusions: Ideas of Reference Thought Process: Distracted and Slowed Thinking Thought Content: positive for [place] and positive for Poverty of Content Judgement: Fair Diagnostics Vital Signs (24Hr): Vital Signs - 24 hr 03/09/24 20:00 03/10/24 08:21 Temperature 96.8 F 97.8 F Pulse Rate 82 80 Respiratory Rate 18 18 Blood Pressure 127/68 125/72 Pulse Oximetry 98 97 Oxygen Delivery Method Room Air Room Air BMI result Body Mass Index 31.8 Labs 09/10/23 20:00 03/05/24 09:13 Labs: Laboratory Results - last 48 hr 03/09/24 03/10/24 06:11 06:20 POC Glucose 141 H 102 Imaging Radiology Impressions: ITS Impressions Brain MRI 09/19/23 20:33 IMPRESSION: 1. No demonstrated acute intracranial abnormalities. 2. Chronic mild to moderate nonspecific white matter changes, most notably in the deep white matter of the right frontal lobe. Mild to moderate generalized cerebral volume loss. Medications Medications Current Medications Acetaminophen (Acetaminophen 325 Mg Tablet) 650 mg PO Q6H PRN PRN Reason: Headache/Pain Mild Scale (1-3) Last Admin: 03/03/24 08:45 Dose: 650 mg Al Hydroxide/Mg Hydroxide (Magnesium Hydrox/Alum Hydrox 30 Ml Oral.Susp) 30 ml PO Q6H PRN PRN Reason: Heartburn/Nausea Last Admin: 11/27/23 10:48 Dose: 30 ml Aripiprazole (Aripiprazole Er 300 Mg Suser.Syr) 300 mg IM Q28D@0900 [facility] Last Admin: 03/04/24 09:30 Dose: 300 mg Benzocaine (Throat Lozenge, Medicated Lozenge) 1 lozenge MUCOUS MEM Q2H PRN PRN Reason: Sore Throat Last Admin: 12/30/23 20:59 Dose: 1 lozenge Benztropine Mesylate (Benztropine Mesylate 0.5 Mg Tablet) 0.5 mg PO TID PRN PRN Reason: Extrapyramidal Effects Glucose (Glucose Gel 15 Gm Gel..Gram.) 15 gm PO Q15M PRN; Protocol PRN Reason: per Hypoglycemia Standing Ord. Guaifenesin/Dextromethorphan (Guaifenesin Dm 100/10/5 Ml 5 Ml Syrup) 5 ml PO Q4H PRN PRN Reason: Cough Last Admin: 03/01/24 08:16 Dose: 5 ml Hydroxyzine HCl (Hydroxyzine Hcl 25 Mg Tablet) 25 mg PO Q6H PRN PRN Reason: Anxiety Last Admin: 03/09/24 20:22 Dose: 25 mg Dextrose (D10) 250 mls @ 750 mls/hr IV Q15M PRN; Protocol PRN Reason: per Hypoglycemia Standing Ord. Insulin Glargine (Insulin Glargine,Hum.Rec.Anlog 100 Unit/Ml 10 Ml Vial) 20 unit SUBCUT BEDTIME [facility] Last Admin: 03/09/24 20:21 Dose: 20 unit Lamotrigine (Lamotrigine 100 Mg Tablet) 150 mg PO BEDTIME [facility] Last Admin: 03/09/24 20:22 Dose: 150 mg Levothyroxine Sodium (Levothyroxine Sodium 150 Mcg Tablet) 150 mcg PO DAILY@0630 [facility] Last Admin: 03/10/24 06:07 Dose: 150 mcg Magnesium Hydroxide (Milk Of Magnesia 30 Ml Oral.Susp) 30 ml PO DAILY PRN PRN Reason: Constipation Memantine (Memantine Hcl 5 Mg Tablet) 5 mg PO BID [facility] Last Admin: 03/10/24 09:03 Dose: 5 mg Metformin HCl (Metformin Hcl Er 500 Mg Tab.Er.24h) 1,000 mg PO DAILY@1700 [facility] Last Admin: 03/09/24 16:15 Dose: 1,000 mg Ondansetron HCl (Ondansetron Odt 8 Mg Tab.Rapdis) 8 mg TRANSLINGU Q8H PRN PRN Reason: Nausea and Vomiting Last Admin: 02/17/24 10:06 Dose: 8 mg Pseudoephedrine HCl (Pseudoephedrine Hcl 30 Mg Tablet) 30 mg PO Q4H PRN PRN Reason: Nasal Congestion Last Admin: 03/03/24 08:45 Dose: 30 mg Sertraline HCl (Sertraline Hcl 50 Mg Tablet) 50 mg PO DAILY [facility] Last Admin: 03/10/24 09:03 Dose: 50 mg Simethicone (Simethicone 80 Mg Tab.Chew) 80 mg PO QIDWMHS PRN PRN Reason: Gas Trazodone HCl (Trazodone Hcl 50 Mg Tablet) 50 mg PO BEDTIME MRX1 PRN PRN Reason: Insomnia Last Admin: 03/09/24 20:22 Dose: 50 mg Allergies Allergies Allergy/AdvReac Type Severity Reaction Status Date / Time amoxicillin [AMOXICILLIN] Allergy Mild VOMITING/ABD Verified 09/10/23 19:44 PAIN Assessment & Plan Assessment & Plan (1) Schizoaffective disorder: Status: Acute Code(s): F25.9 - Schizoaffective disorder, unspecified (2) Hypothyroidism: Status: Acute Code(s): E03.9 - Hypothyroidism, unspecified (3) Type 2 diabetes mellitus: Status: Acute Code(s): E11.9 - Type 2 diabetes mellitus without complications (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 Continue with same medications. 2. Waiting for placement. Reason for continued inpatient stay Substantial Risk for: inability to function, rapid decompensation and med/psych decompensation Time Spent With Patient Time: Total time managing care of this patient today __20__ minutes.
[2024-03-10] MEDS: metFORMIN HCl ER 500 MG TAB.ER.24H 1000 MG PO (16:10)
[2024-03-10] MEDS: lamoTRIgine 100 MG TABLET 150 MG PO (19:42)
[2024-03-10] MEDS: traZODone HCL 50 MG TABLET PO (19:42)
[2024-03-10] MEDS: hydrOXYzine HCL 25 MG TABLET PO (19:42)
[2024-03-10] MEDS: Insulin Glargine,Hum.rec.anlog 100 UNIT/ML 10 ML VIAL 20 UNIT SUBCUT (19:47)
[2024-03-10 20:00] VITALS: BP 112/63; PULSE 78; RESP 16; TEMP 36.6; O2SAT 97
[2024-03-11] MEDS: traZODone HCL 50 MG TABLET PO (00:04)
[2024-03-11] MEDS: Levothyroxine Sodium 150 MCG TABLET PO (06:35)
[2024-03-11 06:41] LABS: Glucose, Whole Blood 103 mg/dL (60-115)
[2024-03-11 08:00] VITALS: BP 134/71; PULSE 74; RESP 18; TEMP 36.8; O2SAT 99
[2024-03-11] MEDS: Memantine HCl 5 MG TABLET PO ×2 (08:40→19:58)
[2024-03-11] MEDS: Sertraline HCL 50 MG TABLET PO (08:40)
--- NOTE | 2024-03-11 13:16 | HO.PSYCHPN ---
Subjective Subjective Date of Service: 03/11/24 Reason For Visit: crisis Subjective Notes: Conditional Voluntary Interim History: The nursing staff reported the patient had been compliant with treatment, no changes in mental status. The information of the healthcare process still on process. On interview the patient denies new symptoms, waiting for placement. Mental Status Exam Mental Status Exam Patient Appearance: Appropriate Patient Orientation: Person and Situation Level of Consciousness: Awake and Appropriate Patient Behavior: Guarded and Passive Mood Description: Withdrawn Affect Description: Constricted Patient Cognition Impaired: Yes Ability to Follow Directions: Good Speech Pattern: Clear 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: None Delusions: Not Present Thought Process: Distracted and Slowed Thinking Thought Content: positive for [place] and positive for Poverty of Content Judgement: Fair Diagnostics Vital Signs (24Hr): Vital Signs - 24 hr 03/10/24 20:00 03/11/24 08:00 Temperature 97.9 F 98.2 F Pulse Rate 78 74 Respiratory Rate 16 18 Blood Pressure 112/63 134/71 Pulse Oximetry 97 99 Oxygen Delivery Method Room Air Room Air BMI result Body Mass Index 31.8 Labs 09/10/23 20:00 03/05/24 09:13 Labs: Laboratory Results - last 48 hr 03/10/24 03/11/24 06:20 06:33 POC Glucose 102 103 Imaging Radiology Impressions: ITS Impressions Brain MRI 09/19/23 20:33 IMPRESSION: 1. No demonstrated acute intracranial abnormalities. 2. Chronic mild to moderate nonspecific white matter changes, most notably in the deep white matter of the right frontal lobe. Mild to moderate generalized cerebral volume loss. Medications Medications Current Medications Acetaminophen (Acetaminophen 325 Mg Tablet) 650 mg PO Q6H PRN PRN Reason: Headache/Pain Mild Scale (1-3) Last Admin: 03/03/24 08:45 Dose: 650 mg Al Hydroxide/Mg Hydroxide (Magnesium Hydrox/Alum Hydrox 30 Ml Oral.Susp) 30 ml PO Q6H PRN PRN Reason: Heartburn/Nausea Last Admin: 11/27/23 10:48 Dose: 30 ml Aripiprazole (Aripiprazole Er 300 Mg Suser.Syr) 300 mg IM Q28D@0900 MANAS Last Admin: 03/04/24 09:30 Dose: 300 mg Benzocaine (Throat Lozenge, Medicated Lozenge) 1 lozenge MUCOUS MEM Q2H PRN PRN Reason: Sore Throat Last Admin: 12/30/23 20:59 Dose: 1 lozenge Benztropine Mesylate (Benztropine Mesylate 0.5 Mg Tablet) 0.5 mg PO TID PRN PRN Reason: Extrapyramidal Effects Glucose (Glucose Gel 15 Gm Gel..Gram.) 15 gm PO Q15M PRN; Protocol PRN Reason: per Hypoglycemia Standing Ord. Guaifenesin/Dextromethorphan (Guaifenesin Dm 100/10/5 Ml 5 Ml Syrup) 5 ml PO Q4H PRN PRN Reason: Cough Last Admin: 03/01/24 08:16 Dose: 5 ml Hydroxyzine HCl (Hydroxyzine Hcl 25 Mg Tablet) 25 mg PO Q6H PRN PRN Reason: Anxiety Last Admin: 03/10/24 19:42 Dose: 25 mg Dextrose (D10) 250 mls @ 750 mls/hr IV Q15M PRN; Protocol PRN Reason: per Hypoglycemia Standing Ord. Insulin Glargine (Insulin Glargine,Hum.Rec.Anlog 100 Unit/Ml 10 Ml Vial) 20 unit SUBCUT BEDTIME [facility] Last Admin: 03/10/24 19:47 Dose: 20 unit Lamotrigine (Lamotrigine 100 Mg Tablet) 150 mg PO BEDTIME [facility] Last Admin: 03/10/24 19:42 Dose: 150 mg Levothyroxine Sodium (Levothyroxine Sodium 150 Mcg Tablet) 150 mcg PO DAILY@0630 [facility] Last Admin: 03/11/24 06:35 Dose: 150 mcg Magnesium Hydroxide (Milk Of Magnesia 30 Ml Oral.Susp) 30 ml PO DAILY PRN PRN Reason: Constipation Memantine (Memantine Hcl 5 Mg Tablet) 5 mg PO BID [facility] Last Admin: 03/11/24 08:40 Dose: 5 mg Metformin HCl (Metformin Hcl Er 500 Mg Tab.Er.24h) 1,000 mg PO DAILY@1700 [facility] Last Admin: 03/10/24 16:10 Dose: 1,000 mg Ondansetron HCl (Ondansetron Odt 8 Mg Tab.Rapdis) 8 mg TRANSLINGU Q8H PRN PRN Reason: Nausea and Vomiting Last Admin: 02/17/24 10:06 Dose: 8 mg Pseudoephedrine HCl (Pseudoephedrine Hcl 30 Mg Tablet) 30 mg PO Q4H PRN PRN Reason: Nasal Congestion Last Admin: 03/03/24 08:45 Dose: 30 mg Sertraline HCl (Sertraline Hcl 50 Mg Tablet) 50 mg PO DAILY [facility]NAS Last Admin: 03/11/24 08:40 Dose: 50 mg Simethicone (Simethicone 80 Mg Tab.Chew) 80 mg PO QIDWMHS PRN PRN Reason: Gas Trazodone HCl (Trazodone Hcl 50 Mg Tablet) 50 mg PO BEDTIME MRX1 PRN PRN Reason: Insomnia Last Admin: 03/11/24 00:04 Dose: 50 mg Allergies Allergies Allergy/AdvReac Type Severity Reaction Status Date / Time amoxicillin [AMOXICILLIN] Allergy Mild VOMITING/ABD Verified 09/10/23 19:44 PAIN Assessment & Plan Assessment & Plan (1) Schizoaffective disorder: Status: Acute Code(s): F25.9 - Schizoaffective disorder, unspecified (2) Hypothyroidism: Status: Acute Code(s): E03.9 - Hypothyroidism, unspecified (3) Type 2 diabetes mellitus: Status: Acute Code(s): E11.9 - Type 2 diabetes mellitus without complications (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 Continue with same medications. 2. Waiting for placement. Reason for continued inpatient stay Substantial Risk for: inability to function, rapid decompensation and med/psych decompensation Time Spent With Patient Time: Total time managing care of this patient today __20__ minutes.
[2024-03-11] MEDS: metFORMIN HCl ER 500 MG TAB.ER.24H 1000 MG PO (16:10)
[2024-03-11] MEDS: lamoTRIgine 100 MG TABLET 150 MG PO (19:58)
[2024-03-11] MEDS: Insulin Glargine,Hum.rec.anlog 100 UNIT/ML 10 ML VIAL 20 UNIT SUBCUT (19:59)
[2024-03-11 20:25] VITALS: BP 128/76; PULSE 76; RESP 17; TEMP 36.2; O2SAT 95
[2024-03-12] MEDS: Levothyroxine Sodium 150 MCG TABLET PO (05:15)
[2024-03-12 05:46] LABS: Glucose, Whole Blood 109 mg/dL (60-115)
[2024-03-12 07:00] VITALS: BMI 30.8
[2024-03-12 08:00] VITALS: BP 128/80; PULSE 84; RESP 16; TEMP 36.5; O2SAT 98
[2024-03-12 08:29] LABS: Creatinine Clr Calc Pharmacy 104.6; Estimated Glomerular Filt Rate > 60
[2024-03-12] MEDS: Sertraline HCL 50 MG TABLET PO (08:47)
[2024-03-12] MEDS: Memantine HCl 5 MG TABLET PO ×2 (08:47→20:12)
[2024-03-12] MEDS: hydrOXYzine HCL 25 MG TABLET PO (12:37)
--- NOTE | 2024-03-12 14:33 | HO.PSYCHPN ---
Subjective Subjective Date of Service: 03/12/24 Reason For Visit: crisis Subjective Notes: Conditional Voluntary Interim History: The nursing staff no changes in mental status cooperative pleasant. The staff has to redirected him since he had being following a patient that this is a behavior that it seems to happen from time to time. The 7th grade social studies teacher reported that her sister is the healthcare proxy and the affirmation was 2 days ago but we did not have the legal paperwork yet. On interview the patient denies new symptoms, waiting for placement. Mental Status Exam Mental Status Exam Patient Appearance: Appropriate Patient Orientation: Person and Situation Level of Consciousness: Awake and Appropriate Patient Behavior: Guarded and Passive Mood Description: Withdrawn Affect Description: Constricted Patient Cognition Impaired: Yes Ability to Follow Directions: Good Speech Pattern: Clear 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: None Delusions: Not Present Thought Process: Distracted and Slowed Thinking Thought Content: positive for [place] and positive for Poverty of Content Judgement: Fair Diagnostics Vital Signs (24Hr): Vital Signs - 24 hr 03/11/24 20:25 03/12/24 08:00 Temperature 97.1 F 97.7 F Pulse Rate 76 84 Respiratory Rate 17 16 Blood Pressure 128/76 128/80 Pulse Oximetry 95 98 Oxygen Delivery Method Room Air Room Air BMI result Body Mass Index 30.8 Labs 09/10/23 20:00 03/12/24 07:27 Labs: Laboratory Results - last 48 hr 03/11/24 03/12/24 03/12/24 06:33 05:39 07:27 Creatinine 0.87 Estim Creat Clear Calc 104.6 Estimated GFR > 60 POC Glucose 103 109 Imaging Radiology Impressions: ITS Impressions Brain MRI 09/19/23 20:33 IMPRESSION: 1. No demonstrated acute intracranial abnormalities. 2. Chronic mild to moderate nonspecific white matter changes, most notably in the deep white matter of the right frontal lobe. Mild to moderate generalized cerebral volume loss. Medications Medications Current Medications Acetaminophen (Acetaminophen 325 Mg Tablet) 650 mg PO Q6H PRN PRN Reason: Headache/Pain Mild Scale (1-3) Last Admin: 03/03/24 08:45 Dose: 650 mg Al Hydroxide/Mg Hydroxide (Magnesium Hydrox/Alum Hydrox 30 Ml Oral.Susp) 30 ml PO Q6H PRN PRN Reason: Heartburn/Nausea Last Admin: 11/27/23 10:48 Dose: 30 ml Aripiprazole (Aripiprazole Er 300 Mg Suser.Syr) 300 mg IM Q28D@0900 [facility] Last Admin: 03/04/24 09:30 Dose: 300 mg Benzocaine (Throat Lozenge, Medicated Lozenge) 1 lozenge MUCOUS MEM Q2H PRN PRN Reason: Sore Throat Last Admin: 12/30/23 20:59 Dose: 1 lozenge Benztropine Mesylate (Benztropine Mesylate 0.5 Mg Tablet) 0.5 mg PO TID PRN PRN Reason: Extrapyramidal Effects Glucose (Glucose Gel 15 Gm Gel..Gram.) 15 gm PO Q15M PRN; Protocol PRN Reason: per Hypoglycemia Standing Ord. Guaifenesin/Dextromethorphan (Guaifenesin Dm 100/10/5 Ml 5 Ml Syrup) 5 ml PO Q4H PRN PRN Reason: Cough Last Admin: 03/01/24 08:16 Dose: 5 ml Hydroxyzine HCl (Hydroxyzine Hcl 25 Mg Tablet) 25 mg PO Q6H PRN PRN Reason: Anxiety Last Admin: 03/12/24 12:37 Dose: 25 mg Dextrose (D10) 250 mls @ 750 mls/hr IV Q15M PRN; Protocol PRN Reason: per Hypoglycemia Standing Ord. Insulin Glargine (Insulin Glargine,Hum.Rec.Anlog 100 Unit/Ml 10 Ml Vial) 20 unit SUBCUT BEDTIME [facility] Last Admin: 03/11/24 19:59 Dose: 20 unit Lamotrigine (Lamotrigine 100 Mg Tablet) 150 mg PO BEDTIME [facility] Last Admin: 03/11/24 19:58 Dose: 150 mg Levothyroxine Sodium (Levothyroxine Sodium 150 Mcg Tablet) 150 mcg PO DAILY@0630 [facility] Last Admin: 03/12/24 05:15 Dose: 150 mcg Magnesium Hydroxide (Milk Of Magnesia 30 Ml Oral.Susp) 30 ml PO DAILY PRN PRN Reason: Constipation Memantine (Memantine Hcl 5 Mg Tablet) 5 mg PO BID [facility] Last Admin: 03/12/24 08:47 Dose: 5 mg Metformin HCl (Metformin Hcl Er 500 Mg Tab.Er.24h) 1,000 mg PO DAILY@1700 [facility] Last Admin: 03/11/24 16:10 Dose: 1,000 mg Ondansetron HCl (Ondansetron Odt 8 Mg Tab.Rapdis) 8 mg TRANSLINGU Q8H PRN PRN Reason: Nausea and Vomiting Last Admin: 02/17/24 10:06 Dose: 8 mg Pseudoephedrine HCl (Pseudoephedrine Hcl 30 Mg Tablet) 30 mg PO Q4H PRN PRN Reason: Nasal Congestion Last Admin: 03/03/24 08:45 Dose: 30 mg Sertraline HCl (Sertraline Hcl 50 Mg Tablet) 50 mg PO DAILY [facility]NAS Last Admin: 03/12/24 08:47 Dose: 50 mg Simethicone (Simethicone 80 Mg Tab.Chew) 80 mg PO QIDWMHS PRN PRN Reason: Gas Trazodone HCl (Trazodone Hcl 50 Mg Tablet) 50 mg PO BEDTIME MRX1 PRN PRN Reason: Insomnia Last Admin: 03/11/24 00:04 Dose: 50 mg Allergies Allergies Allergy/AdvReac Type Severity Reaction Status Date / Time amoxicillin [AMOXICILLIN] Allergy Mild VOMITING/ABD Verified 09/10/23 19:44 PAIN Assessment & Plan Assessment & Plan (1) Schizoaffective disorder: Status: Acute Code(s): F25.9 - Schizoaffective disorder, unspecified (2) Hypothyroidism: Status: Acute Code(s): E03.9 - Hypothyroidism, unspecified (3) Type 2 diabetes mellitus: Status: Acute Code(s): E11.9 - Type 2 diabetes mellitus without complications (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 Continue with same medications. 2. Waiting for placement. Reason for continued inpatient stay Substantial Risk for: inability to function, rapid decompensation and med/psych decompensation Time Spent With Patient Time: Total time managing care of this patient today __20__ minutes.
[2024-03-12] MEDS: metFORMIN HCl ER 500 MG TAB.ER.24H 1000 MG PO (16:05)
[2024-03-12 20:00] VITALS: BP 130/69; PULSE 72; RESP 16; TEMP 36.1; O2SAT 96
[2024-03-12] MEDS: Insulin Glargine,Hum.rec.anlog 100 UNIT/ML 10 ML VIAL 20 UNIT SUBCUT (20:11)
[2024-03-12] MEDS: traZODone HCL 50 MG TABLET PO (20:12)
[2024-03-12] MEDS: lamoTRIgine 100 MG TABLET 150 MG PO (20:12)
[2024-03-13] MEDS: Levothyroxine Sodium 150 MCG TABLET PO (06:38)
[2024-03-13 06:50] LABS: Glucose, Whole Blood 103 mg/dL (60-115)
[2024-03-13 08:00] VITALS: BP 115/64; PULSE 70; RESP 16; TEMP 36.1; O2SAT 98
[2024-03-13] MEDS: Memantine HCl 5 MG TABLET PO ×2 (08:30→20:31)
[2024-03-13] MEDS: Sertraline HCL 50 MG TABLET PO (08:30)
--- NOTE | 2024-03-13 15:41 | HO.PSYCHPN ---
Subjective Subjective Date of Service: 03/13/24 Reason For Visit: crisis Subjective Notes: Conditional Voluntary Interim History: The nursing staff reported no changes in his mental status, usually he follows patient's and stocks but he is redirectable. On interview the patient denies new symptoms. Mental Status Exam Mental Status Exam Patient Appearance: Appropriate Patient Orientation: Person and Situation Level of Consciousness: Awake and Appropriate Patient Behavior: Guarded and Passive Mood Description: Withdrawn Affect Description: Constricted Patient Cognition Impaired: Yes Ability to Follow Directions: Good Speech Pattern: Clear 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: None Delusions: Ideas of Reference Thought Process: Distracted and Slowed Thinking Judgement: Fair Diagnostics Vital Signs (24Hr): Vital Signs - 24 hr 03/12/24 20:00 03/13/24 08:00 Temperature 97 F 97 F Pulse Rate 72 70 Respiratory Rate 16 16 Blood Pressure 130/69 115/64 Pulse Oximetry 96 98 Oxygen Delivery Method Room Air Room Air BMI result Body Mass Index 30.8 Labs 09/10/23 20:00 03/12/24 07:27 Labs: Laboratory Results - last 48 hr 03/12/24 03/12/24 03/13/24 05:39 07:27 06:37 Creatinine 0.87 Estim Creat Clear Calc 104.6 Estimated GFR > 60 POC Glucose 109 103 Imaging Radiology Impressions: ITS Impressions Brain MRI 09/19/23 20:33 IMPRESSION: 1. No demonstrated acute intracranial abnormalities. 2. Chronic mild to moderate nonspecific white matter changes, most notably in the deep white matter of the right frontal lobe. Mild to moderate generalized cerebral volume loss. Medications Medications Current Medications Acetaminophen (Acetaminophen 325 Mg Tablet) 650 mg PO Q6H PRN PRN Reason: Headache/Pain Mild Scale (1-3) Last Admin: 03/03/24 08:45 Dose: 650 mg Al Hydroxide/Mg Hydroxide (Magnesium Hydrox/Alum Hydrox 30 Ml Oral.Susp) 30 ml PO Q6H PRN PRN Reason: Heartburn/Nausea Last Admin: 11/27/23 10:48 Dose: 30 ml Aripiprazole (Aripiprazole Er 300 Mg Suser.Syr) 300 mg IM Q28D@0900 [facility]NAS Last Admin: 03/04/24 09:30 Dose: 300 mg Benzocaine (Throat Lozenge, Medicated Lozenge) 1 lozenge MUCOUS MEM Q2H PRN PRN Reason: Sore Throat Last Admin: 12/30/23 20:59 Dose: 1 lozenge Benztropine Mesylate (Benztropine Mesylate 0.5 Mg Tablet) 0.5 mg PO TID PRN PRN Reason: Extrapyramidal Effects Glucose (Glucose Gel 15 Gm Gel..Gram.) 15 gm PO Q15M PRN; Protocol PRN Reason: per Hypoglycemia Standing Ord. Guaifenesin/Dextromethorphan (Guaifenesin Dm 100/10/5 Ml 5 Ml Syrup) 5 ml PO Q4H PRN PRN Reason: Cough Last Admin: 03/01/24 08:16 Dose: 5 ml Hydroxyzine HCl (Hydroxyzine Hcl 25 Mg Tablet) 25 mg PO Q6H PRN PRN Reason: Anxiety Last Admin: 03/12/24 12:37 Dose: 25 mg Dextrose (D10) 250 mls @ 750 mls/hr IV Q15M PRN; Protocol PRN Reason: per Hypoglycemia Standing Ord. Insulin Glargine (Insulin Glargine,Hum.Rec.Anlog 100 Unit/Ml 10 Ml Vial) 20 unit SUBCUT BEDTIME [facility] Last Admin: 03/12/24 20:11 Dose: 20 unit Lamotrigine (Lamotrigine 100 Mg Tablet) 150 mg PO BEDTIME [facility] Last Admin: 03/12/24 20:12 Dose: 150 mg Levothyroxine Sodium (Levothyroxine Sodium 150 Mcg Tablet) 150 mcg PO DAILY@0630 [facility] Last Admin: 03/13/24 06:38 Dose: 150 mcg Magnesium Hydroxide (Milk Of Magnesia 30 Ml Oral.Susp) 30 ml PO DAILY PRN PRN Reason: Constipation Memantine (Memantine Hcl 5 Mg Tablet) 5 mg PO BID [facility] Last Admin: 03/13/24 08:30 Dose: 5 mg Metformin HCl (Metformin Hcl Er 500 Mg Tab.Er.24h) 1,000 mg PO DAILY@1700 [facility] Last Admin: 03/12/24 16:05 Dose: 1,000 mg Ondansetron HCl (Ondansetron Odt 8 Mg Tab.Rapdis) 8 mg TRANSLINGU Q8H PRN PRN Reason: Nausea and Vomiting Last Admin: 02/17/24 10:06 Dose: 8 mg Pseudoephedrine HCl (Pseudoephedrine Hcl 30 Mg Tablet) 30 mg PO Q4H PRN PRN Reason: Nasal Congestion Last Admin: 03/03/24 08:45 Dose: 30 mg Sertraline HCl (Sertraline Hcl 50 Mg Tablet) 50 mg PO DAILY [facility] Last Admin: 03/13/24 08:30 Dose: 50 mg Simethicone (Simethicone 80 Mg Tab.Chew) 80 mg PO QIDWMHS PRN PRN Reason: Gas Trazodone HCl (Trazodone Hcl 50 Mg Tablet) 50 mg PO BEDTIME MRX1 PRN PRN Reason: Insomnia Last Admin: 03/12/24 20:12 Dose: 50 mg Allergies Allergies Allergy/AdvReac Type Severity Reaction Status Date / Time amoxicillin [AMOXICILLIN] Allergy Mild VOMITING/ABD Verified 09/10/23 19:44 PAIN Assessment & Plan Assessment & Plan (1) Schizoaffective disorder: Status: Acute Code(s): F25.9 - Schizoaffective disorder, unspecified (2) Hypothyroidism: Status: Acute Code(s): E03.9 - Hypothyroidism, unspecified (3) Type 2 diabetes mellitus: Status: Acute Code(s): E11.9 - Type 2 diabetes mellitus without complications (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 Continue with same medications. 2. Waiting for placement. Reason for continued inpatient stay Substantial Risk for: inability to function, rapid decompensation and med/psych decompensation Time Spent With Patient Time: Total time managing care of this patient today _20___ minutes.
[2024-03-13] MEDS: metFORMIN HCl ER 500 MG TAB.ER.24H 1000 MG PO (16:12)
[2024-03-13 20:00] VITALS: BP 131/81; PULSE 81; RESP 18; TEMP 37.2; O2SAT 95
[2024-03-13] MEDS: lamoTRIgine 100 MG TABLET 150 MG PO (20:31)
[2024-03-13] MEDS: traZODone HCL 50 MG TABLET PO (20:31)
[2024-03-13] MEDS: Insulin Glargine,Hum.rec.anlog 100 UNIT/ML 10 ML VIAL 20 UNIT SUBCUT (20:32)
[2024-03-14] MEDS: Levothyroxine Sodium 150 MCG TABLET PO (06:35)
[2024-03-14 06:51] LABS: Glucose, Whole Blood 118 mg/dL (60-115)
[2024-03-14 08:02] VITALS: BP 122/70; PULSE 75; RESP 18; TEMP 36; O2SAT 99
[2024-03-14] MEDS: hydrOXYzine HCL 25 MG TABLET PO (08:12)
[2024-03-14] MEDS: Memantine HCl 5 MG TABLET PO ×2 (08:12→21:09)
[2024-03-14] MEDS: Sertraline HCL 50 MG TABLET PO (08:12)
--- NOTE | 2024-03-14 13:38 | P.PNPSI_ITS ---
Subjective Subjective Date of Service: 03/14/24 Reason For Visit: crisis Subjective Notes: Conditional Voluntary Interim History: Pt although attempts to help with pts does not realize that he is cross privacy boundaries, needs redirection which at times although he would say he agrees does not change his behaviors. He is pleasant on approach. no insight into his own impairments in terms of ability to care for himself and declines placement thinking he can live here on the unit. Medication Compliance: Yes Review of Systems Review of Systems Unremarkable Yes all other systems are reviewed and are negative and unobtainable due to endotracheal tube Constitutional: Reports as per HPI Eyes: Reports as per HPI Reports as per HPI Cardiovascular: Reports as per HPI Respiratory: Reports as per HPI Gastrointestinal: Reports as per HPI Genitourinary: Reports as per HPI Musculoskeletal: Reports as per HPI Skin/Breast: Reports as per HPI Reports as per HPI Psychiatric: Reports as per HPI Endocrine: Reports as per HPI Hematologic/Lymphatic: Reports as per HPI Allergic/Immunologic: Reports as per HPI Mental Status Exam Mental Status Exam Patient Appearance: Appropriate Patient Orientation: Person and Situation Level of Consciousness: Awake and Appropriate Patient Behavior: Guarded and Passive Mood Description: Withdrawn Affect Description: Constricted Patient Cognition Impaired: Yes Ability to Follow Directions: Good Speech Pattern: Clear 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: Mcfp Impaired Diagnostics Vital Signs (24Hr): Vital Signs - 24 hr 03/13/24 20:00 03/14/24 08:02 Temperature 99 F 96.8 F Pulse Rate 81 75 Respiratory Rate 18 18 Blood Pressure 131/81 122/70 Pulse Oximetry 95 99 Oxygen Delivery Method Room Air Room Air BMI result Body Mass Index 30.8 Labs 09/10/23 20:00 03/12/24 07:27 Labs: Laboratory Results - last 48 hr 03/13/24 03/14/24 06:37 06:35 POC Glucose 103 118 H Imaging Radiology Impressions: ITS Impressions Brain MRI 09/19/23 20:33 IMPRESSION: 1. No demonstrated acute intracranial abnormalities. 2. Chronic mild to moderate nonspecific white matter changes, most notably in the deep white matter of the right frontal lobe. Mild to moderate generalized cerebral volume loss. Medications Medications Current Medications Acetaminophen (Acetaminophen 325 Mg Tablet) 650 mg PO Q6H PRN PRN Reason: Headache/Pain Mild Scale (1-3) Last Admin: 03/03/24 08:45 Dose: 650 mg Al Hydroxide/Mg Hydroxide (Magnesium Hydrox/Alum Hydrox 30 Ml Oral.Susp) 30 ml PO Q6H PRN PRN Reason: Heartburn/Nausea Last Admin: 11/27/23 10:48 Dose: 30 ml Aripiprazole (Aripiprazole Er 300 Mg Suser.Syr) 300 mg IM Q28D@0900 [facility] Last Admin: 03/04/24 09:30 Dose: 300 mg Benzocaine (Throat Lozenge, Medicated Lozenge) 1 lozenge MUCOUS MEM Q2H PRN PRN Reason: Sore Throat Last Admin: 12/30/23 20:59 Dose: 1 lozenge Benztropine Mesylate (Benztropine Mesylate 0.5 Mg Tablet) 0.5 mg PO TID PRN PRN Reason: Extrapyramidal Effects Glucose (Glucose Gel 15 Gm Gel..Gram.) 15 gm PO Q15M PRN; Protocol PRN Reason: per Hypoglycemia Standing Ord. Guaifenesin/Dextromethorphan (Guaifenesin Dm 100/10/5 Ml 5 Ml Syrup) 5 ml PO Q4H PRN PRN Reason: Cough Last Admin: 03/01/24 08:16 Dose: 5 ml Hydroxyzine HCl (Hydroxyzine Hcl 25 Mg Tablet) 25 mg PO Q6H PRN PRN Reason: Anxiety Last Admin: 03/14/24 08:12 Dose: 25 mg Dextrose (D10) 250 mls @ 750 mls/hr IV Q15M PRN; Protocol PRN Reason: per Hypoglycemia Standing Ord. Insulin Glargine (Insulin Glargine,Hum.Rec.Anlog 100 Unit/Ml 10 Ml Vial) 20 unit SUBCUT BEDTIME [facility] Last Admin: 03/13/24 20:32 Dose: 20 unit Lamotrigine (Lamotrigine 100 Mg Tablet) 150 mg PO BEDTIME [facility] Last Admin: 03/13/24 20:31 Dose: 150 mg Levothyroxine Sodium (Levothyroxine Sodium 150 Mcg Tablet) 150 mcg PO DAILY@0630 [facility] Last Admin: 03/14/24 06:35 Dose: 150 mcg Magnesium Hydroxide (Milk Of Magnesia 30 Ml Oral.Susp) 30 ml PO DAILY PRN PRN Reason: Constipation Memantine (Memantine Hcl 5 Mg Tablet) 5 mg PO BID [facility] Last Admin: 03/14/24 08:12 Dose: 5 mg Metformin HCl (Metformin Hcl Er 500 Mg Tab.Er.24h) 1,000 mg PO DAILY@1700 [facility] Last Admin: 03/13/24 16:12 Dose: 1,000 mg Ondansetron HCl (Ondansetron Odt 8 Mg Tab.Rapdis) 8 mg TRANSLINGU Q8H PRN PRN Reason: Nausea and Vomiting Last Admin: 02/17/24 10:06 Dose: 8 mg Pseudoephedrine HCl (Pseudoephedrine Hcl 30 Mg Tablet) 30 mg PO Q4H PRN PRN Reason: Nasal Congestion Last Admin: 03/03/24 08:45 Dose: 30 mg Sertraline HCl (Sertraline Hcl 50 Mg Tablet) 50 mg PO DAILY [facility]NA[facility] Last Admin: 03/14/24 08:12 Dose: 50 mg Simethicone (Simethicone 80 Mg Tab.Chew) 80 mg PO QIDWMHS PRN PRN Reason: Gas Trazodone HCl (Trazodone Hcl 50 Mg Tablet) 50 mg PO BEDTIME MRX1 PRN PRN Reason: Insomnia Last Admin: 03/13/24 20:31 Dose: 50 mg Allergies Allergies Allergy/AdvReac Type Severity Reaction Status Date / Time amoxicillin [AMOXICILLIN] Allergy Mild VOMITING/ABD Verified 09/10/23 19:44 PAIN Assessment & Plan Assessment & Plan (1) Schizoaffective disorder: Status: Acute Code(s): F25.9 - Schizoaffective disorder, unspecified (2) Hypothyroidism: Status: Acute Code(s): E03.9 - Hypothyroidism, unspecified (3) Type 2 diabetes mellitus: Status: Acute Code(s): E11.9 - Type 2 diabetes mellitus without complications (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 Continue with same medications. 2. Waiting for placement. Reason for continued inpatient stay Substantial Risk for: inability to function Time Spent With Patient Time: Total time managing care of this patient today ____ minutes.
[2024-03-14] MEDS: metFORMIN HCl ER 500 MG TAB.ER.24H 1000 MG PO (17:03)
[2024-03-14 20:00] VITALS: BP 125/60; PULSE 84; RESP 16; TEMP 36.7; O2SAT 97
[2024-03-14] MEDS: lamoTRIgine 100 MG TABLET 150 MG PO (21:08)
[2024-03-14] MEDS: Insulin Glargine,Hum.rec.anlog 100 UNIT/ML 10 ML VIAL 20 UNIT SUBCUT (21:08)
[2024-03-14] MEDS: traZODone HCL 50 MG TABLET PO (21:09)
[2024-03-15] MEDS: Levothyroxine Sodium 150 MCG TABLET PO (06:11)
[2024-03-15 06:16] LABS: Glucose, Whole Blood 105 mg/dL (60-115)
[2024-03-15 08:00] VITALS: BP 125/70; PULSE 73; RESP 16; TEMP 37.1; O2SAT 94
[2024-03-15] MEDS: Sertraline HCL 50 MG TABLET PO (08:37)
[2024-03-15] MEDS: Memantine HCl 5 MG TABLET PO ×2 (08:37→20:57)
--- NOTE | 2024-03-15 12:18 | P.PNPSI_ITS ---
Subjective Subjective Date of Service: 03/15/24 Reason For Visit: crisis Subjective Notes: Conditional Voluntary Interim History: Pt although attempts to help with pts does not realize that he is cross privacy boundaries, needs redirection which at times although he would say he agrees does not change his behaviors. He is pleasant on approach. no insight into his own impairments in terms of ability to care for himself and declines placement thinking he can live here on the unit. Review of Systems Review of Systems Unremarkable Yes all other systems are reviewed and are negative and unobtainable due to endotracheal tube Constitutional: Reports as per HPI Eyes: Reports as per HPI Reports as per HPI Cardiovascular: Reports as per HPI Respiratory: Reports as per HPI Gastrointestinal: Reports as per HPI Genitourinary: Reports as per HPI Musculoskeletal: Reports as per HPI Skin/Breast: Reports as per HPI Reports as per HPI Psychiatric: Reports as per HPI Endocrine: Reports as per HPI Hematologic/Lymphatic: Reports as per HPI Allergic/Immunologic: Reports as per HPI Mental Status Exam Mental Status Exam Patient Appearance: Appropriate Patient Orientation: Person and Place Level of Consciousness: Awake, Appropriate and Inappropriate (boundaries with peers) Patient Behavior: Guarded and Passive Mood Description: Withdrawn Affect Description: Constricted Patient Cognition Impaired: Yes Ability to Follow Directions: Good Speech Pattern: Clear 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 No demonstrated acute intracranial abnormalities. 2. Chronic mild to moderate nonspecific white matter changes, most notably in the deep white matter of the right frontal lobe. Mild to moderate generalized cerebral volume loss. Medications Medications Current Medications Acetaminophen (Acetaminophen 325 Mg Tablet) 650 mg PO Q6H PRN PRN Reason: Headache/Pain Mild Scale (1-3) Last Admin: 03/03/24 08:45 Dose: 650 mg Al Hydroxide/Mg Hydroxide (Magnesium Hydrox/Alum Hydrox 30 Ml Oral.Susp) 30 ml PO Q6H PRN PRN Reason: Heartburn/Nausea Last Admin: 11/27/23 10:48 Dose: 30 ml Aripiprazole (Aripiprazole Er 300 Mg Suser.Syr) 300 mg IM Q28D@0900 [facility] Last Admin: 03/04/24 09:30 Dose: 300 mg Benzocaine (Throat Lozenge, Medicated Lozenge) 1 lozenge MUCOUS MEM Q2H PRN PRN Reason: Sore Throat Last Admin: 12/30/23 20:59 Dose: 1 lozenge Benztropine Mesylate (Benztropine Mesylate 0.5 Mg Tablet) 0.5 mg PO TID PRN PRN Reason: Extrapyramidal Effects Glucose (Glucose Gel 15 Gm Gel..Gram.) 15 gm PO Q15M PRN; Protocol PRN Reason: per Hypoglycemia Standing Ord. Guaifenesin/Dextromethorphan (Guaifenesin Dm 100/10/5 Ml 5 Ml Syrup) 5 ml PO Q4H PRN PRN Reason: Cough Last Admin: 03/01/24 08:16 Dose: 5 ml Hydroxyzine HCl (Hydroxyzine Hcl 25 Mg Tablet) 25 mg PO Q6H PRN PRN Reason: Anxiety Last Admin: 03/14/24 08:12 Dose: 25 mg Dextrose (D10) 250 mls @ 750 mls/hr IV Q15M PRN; Protocol PRN Reason: per Hypoglycemia Standing Ord. Insulin Glargine (Insulin Glargine,Hum.Rec.Anlog 100 Unit/Ml 10 Ml Vial) 20 unit SUBCUT BEDTIME [facility] Last Admin: 03/14/24 21:08 Dose: 20 unit Lamotrigine (Lamotrigine 100 Mg Tablet) 150 mg PO BEDTIME [facility] Last Admin: 03/14/24 21:08 Dose: 150 mg Levothyroxine Sodium (Levothyroxine Sodium 150 Mcg Tablet) 150 mcg PO DAILY@0630 [facility] Last Admin: 03/15/24 06:11 Dose: 150 mcg Magnesium Hydroxide (Milk Of Magnesia 30 Ml Oral.Susp) 30 ml PO DAILY PRN PRN Reason: Constipation Memantine (Memantine Hcl 5 Mg Tablet) 5 mg PO BID [facility] Last Admin: 03/15/24 08:37 Dose: 5 mg Metformin HCl (Metformin Hcl Er 500 Mg Tab.Er.24h) 1,000 mg PO DAILY@1700 [facility] Last Admin: 03/14/24 17:03 Dose: 1,000 mg Ondansetron HCl (Ondansetron Odt 8 Mg Tab.Rapdis) 8 mg TRANSLINGU Q8H PRN PRN Reason: Nausea and Vomiting Last Admin: 02/17/24 10:06 Dose: 8 mg Pseudoephedrine HCl (Pseudoephedrine Hcl 30 Mg Tablet) 30 mg PO Q4H PRN PRN Reason: Nasal Congestion Last Admin: 03/03/24 08:45 Dose: 30 mg Sertraline HCl (Sertraline Hcl 50 Mg Tablet) 50 mg PO DAILY [facility] Last Admin: 03/15/24 08:37 Dose: 50 mg Simethicone (Simethicone 80 Mg Tab.Chew) 80 mg PO QIDWMHS PRN PRN Reason: Gas Trazodone HCl (Trazodone Hcl 50 Mg Tablet) 50 mg PO BEDTIME MRX1 PRN PRN Reason: Insomnia Last Admin: 03/14/24 21:09 Dose: 50 mg Allergies Allergies Allergy/AdvReac Type Severity Reaction Status Date / Time amoxicillin [AMOXICILLIN] Allergy Mild VOMITING/ABD Verified 09/10/23 19:44 PAIN Assessment & Plan Assessment & Plan (1) Schizoaffective disorder: Status: Acute Code(s): F25.9 - Schizoaffective disorder, unspecified (2) Hypothyroidism: Status: Acute Code(s): E03.9 - Hypothyroidism, unspecified (3) Type 2 diabetes mellitus: Status: Acute Code(s): E11.9 - Type 2 diabetes mellitus without complications (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 Continue with same medications. 2. Waiting for placement. Reason for continued inpatient stay Substantial Risk for: inability to function Time Spent With Patient Time: Total time managing care of this patient today ____ minutes.
[2024-03-15] MEDS: metFORMIN HCl ER 500 MG TAB.ER.24H 1000 MG PO (16:03)
[2024-03-15 20:00] VITALS: BP 142/67; PULSE 88; RESP 18; TEMP 36.7; O2SAT 98
[2024-03-15] MEDS: traZODone HCL 50 MG TABLET PO ×2 (20:57→21:50)
[2024-03-15] MEDS: lamoTRIgine 100 MG TABLET 150 MG PO (20:57)
[2024-03-15] MEDS: hydrOXYzine HCL 25 MG TABLET PO (20:57)
[2024-03-15] MEDS: Insulin Glargine,Hum.rec.anlog 100 UNIT/ML 10 ML VIAL 20 UNIT SUBCUT (20:59)
[2024-03-16] MEDS: Levothyroxine Sodium 150 MCG TABLET PO (05:30)
[2024-03-16 05:37] LABS: Glucose, Whole Blood 106 mg/dL (60-115)
[2024-03-16 08:00] VITALS: BP 130/68; PULSE 81; RESP 18; TEMP 36.6; O2SAT 99
[2024-03-16] MEDS: Memantine HCl 5 MG TABLET PO ×2 (08:10→20:01)
[2024-03-16] MEDS: Sertraline HCL 50 MG TABLET PO (08:10)
--- NOTE | 2024-03-16 12:11 | HO.PSYCHPN ---
Subjective Subjective Date of Service: 03/16/24 Reason For Visit: crisis Subjective Notes: Conditional Voluntary Interim History: The nursing staff reported the patient had been compliant with treatment no changes in his mental status. On interview the patient denies new symptoms. Mental Status Exam Mental Status Exam Patient Appearance: Appropriate Patient Orientation: Person and Situation Level of Consciousness: Awake and Appropriate Patient Behavior: Guarded and Passive Mood Description: Withdrawn Affect Description: Constricted Patient Cognition Impaired: Yes Ability to Follow Directions: Good Speech Pattern: Clear 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: None Delusions: Not Present Thought Process: Distracted and Slowed Thinking Thought Content: positive for [place] and positive for Poverty of Content Judgement: Poor Diagnostics Vital Signs (24Hr): Vital Signs - 24 hr 03/15/24 20:00 03/16/24 08:00 Temperature 98.1 F 97.9 F Pulse Rate 88 81 Respiratory Rate 18 18 Blood Pressure 142/67 H 130/68 Pulse Oximetry 98 99 Oxygen Delivery Method Room Air Room Air BMI result Body Mass Index 30.8 Labs 09/10/23 20:00 03/12/24 07:27 Labs: Laboratory Results - last 48 hr 03/15/24 03/16/24 06:09 05:33 POC Glucose 105 106 Imaging Radiology Impressions: ITS Impressions Brain MRI 09/19/23 20:33 IMPRESSION: 1. No demonstrated acute intracranial abnormalities. 2. Chronic mild to moderate nonspecific white matter changes, most notably in the deep white matter of the right frontal lobe. Mild to moderate generalized cerebral volume loss. Medications Medications Current Medications Acetaminophen (Acetaminophen 325 Mg Tablet) 650 mg PO Q6H PRN PRN Reason: Headache/Pain Mild Scale (1-3) Last Admin: 03/03/24 08:45 Dose: 650 mg Al Hydroxide/Mg Hydroxide (Magnesium Hydrox/Alum Hydrox 30 Ml Oral.Susp) 30 ml PO Q6H PRN PRN Reason: Heartburn/Nausea Last Admin: 11/27/23 10:48 Dose: 30 ml Aripiprazole (Aripiprazole Er 300 Mg Suser.Syr) 300 mg IM Q28D@0900 [facility] Last Admin: 03/04/24 09:30 Dose: 300 mg Benzocaine (Throat Lozenge, Medicated Lozenge) 1 lozenge MUCOUS MEM Q2H PRN PRN Reason: Sore Throat Last Admin: 12/30/23 20:59 Dose: 1 lozenge Benztropine Mesylate (Benztropine Mesylate 0.5 Mg Tablet) 0.5 mg PO TID PRN PRN Reason: Extrapyramidal Effects Glucose (Glucose Gel 15 Gm Gel..Gram.) 15 gm PO Q15M PRN; Protocol PRN Reason: per Hypoglycemia Standing Ord. Guaifenesin/Dextromethorphan (Guaifenesin Dm 100/10/5 Ml 5 Ml Syrup) 5 ml PO Q4H PRN PRN Reason: Cough Last Admin: 03/01/24 08:16 Dose: 5 ml Hydroxyzine HCl (Hydroxyzine Hcl 25 Mg Tablet) 25 mg PO Q6H PRN PRN Reason: Anxiety Last Admin: 03/15/24 20:57 Dose: 25 mg Insulin Glargine (Insulin Glargine,Hum.Rec.Anlog 100 Unit/Ml 10 Ml Vial) 20 unit SUBCUT BEDTIME [facility] Last Admin: 03/15/24 20:59 Dose: 20 unit Lamotrigine (Lamotrigine 100 Mg Tablet) 150 mg PO BEDTIME [facility] Last Admin: 03/15/24 20:57 Dose: 150 mg Levothyroxine Sodium (Levothyroxine Sodium 150 Mcg Tablet) 150 mcg PO DAILY@0630 [facility] Last Admin: 03/16/24 05:30 Dose: 150 mcg Magnesium Hydroxide (Milk Of Magnesia 30 Ml Oral.Susp) 30 ml PO DAILY PRN PRN Reason: Constipation Memantine (Memantine Hcl 5 Mg Tablet) 5 mg PO BID [facility] Last Admin: 03/16/24 08:10 Dose: 5 mg Metformin HCl (Metformin Hcl Er 500 Mg Tab.Er.24h) 1,000 mg PO DAILY@1700 [facility] Last Admin: 03/15/24 16:03 Dose: 1,000 mg Ondansetron HCl (Ondansetron Odt 8 Mg Tab.Rapdis) 8 mg TRANSLINGU Q8H PRN PRN Reason: Nausea and Vomiting Last Admin: 02/17/24 10:06 Dose: 8 mg Pseudoephedrine HCl (Pseudoephedrine Hcl 30 Mg Tablet) 30 mg PO Q4H PRN PRN Reason: Nasal Congestion Last Admin: 03/03/24 08:45 Dose: 30 mg Sertraline HCl (Sertraline Hcl 50 Mg Tablet) 50 mg PO DAILY [facility] Last Admin: 03/16/24 08:10 Dose: 50 mg Simethicone (Simethicone 80 Mg Tab.Chew) 80 mg PO QIDWMHS PRN PRN Reason: Gas Trazodone HCl (Trazodone Hcl 50 Mg Tablet) 50 mg PO BEDTIME MRX1 PRN PRN Reason: Insomnia Last Admin: 03/15/24 21:50 Dose: 50 mg Allergies Allergies Allergy/AdvReac Type Severity Reaction Status Date / Time amoxicillin [AMOXICILLIN] Allergy Mild VOMITING/ABD Verified 09/10/23 19:44 PAIN Assessment & Plan Assessment & Plan (1) Schizoaffective disorder: Status: Acute Code(s): F25.9 - Schizoaffective disorder, unspecified (2) Hypothyroidism: Status: Acute Code(s): E03.9 - Hypothyroidism, unspecified (3) Type 2 diabetes mellitus: Status: Acute Code(s): E11.9 - Type 2 diabetes mellitus without complications (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 Continue with same medications. 2. Waiting for placement. Reason for continued inpatient stay Substantial Risk for: inability to function, rapid decompensation and med/psych decompensation Time Spent With Patient Time: Total time managing care of this patient today __20__ minutes.
[2024-03-16] MEDS: metFORMIN HCl ER 500 MG TAB.ER.24H 1000 MG PO (16:22)
[2024-03-16 20:00] VITALS: BP 120/64; PULSE 80; RESP 16; TEMP 36.5; O2SAT 97
[2024-03-16] MEDS: Insulin Glargine,Hum.rec.anlog 100 UNIT/ML 10 ML VIAL 20 UNIT SUBCUT (20:01)
[2024-03-16] MEDS: lamoTRIgine 100 MG TABLET 150 MG PO (20:01)
[2024-03-17] MEDS: Levothyroxine Sodium 150 MCG TABLET PO (05:17)
[2024-03-17 07:55] VITALS: BP 118/62; PULSE 80; RESP 18; TEMP 36.6; O2SAT 98
[2024-03-17] MEDS: Memantine HCl 5 MG TABLET PO ×2 (08:22→19:46)
[2024-03-17] MEDS: Sertraline HCL 50 MG TABLET PO (08:22)
--- NOTE | 2024-03-17 14:22 | P.PNPSI_ITS ---
Subjective Subjective Date of Service: 03/17/24 Reason For Visit: crisis Subjective Notes: Conditional Voluntary Interim History: The nursing staff reported no changes in his mental status cooperative pleasant, taking medications. Sometimes he has been following patient's but he is redirectable. On interview the patient denies new symptoms, waiting for placement. Mental Status Exam Mental Status Exam Patient Appearance: Appropriate Patient Orientation: Person and Situation Level of Consciousness: Awake and Appropriate Patient Behavior: Guarded and Passive Mood Description: Withdrawn Affect Description: Constricted Patient Cognition Impaired: Yes Ability to Follow Directions: Good Speech Pattern: Clear 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: None Delusions: Ideas of Reference Thought Process: Distracted and Slowed Thinking Thought Content: positive for [place] and positive for Poverty of Content Judgement: Poor Diagnostics Vital Signs (24Hr): Vital Signs - 24 hr 03/16/24 20:00 03/17/24 07:55 Temperature 97.7 F 97.9 F Pulse Rate 80 80 Respiratory Rate 16 18 Blood Pressure 120/64 118/62 Pulse Oximetry 97 98 Oxygen Delivery Method Room Air Room Air BMI result Body Mass Index 30.8 Labs 09/10/23 20:00 03/12/24 07:27 Labs: Laboratory Results - last 48 hr 03/16/24 05:33 POC Glucose 106 Imaging Radiology Impressions: ITS Impressions Brain MRI 09/19/23 20:33 IMPRESSION: 1. No demonstrated acute intracranial abnormalities. 2. Chronic mild to moderate nonspecific white matter changes, most notably in the deep white matter of the right frontal lobe. Mild to moderate generalized cerebral volume loss. Medications Medications Current Medications Acetaminophen (Acetaminophen 325 Mg Tablet) 650 mg PO Q6H PRN PRN Reason: Headache/Pain Mild Scale (1-3) Last Admin: 03/03/24 08:45 Dose: 650 mg Al Hydroxide/Mg Hydroxide (Magnesium Hydrox/Alum Hydrox 30 Ml Oral.Susp) 30 ml PO Q6H PRN PRN Reason: Heartburn/Nausea Last Admin: 11/27/23 10:48 Dose: 30 ml Aripiprazole (Aripiprazole Er 300 Mg Suser.Syr) 300 mg IM Q28D@0900 [facility] Last Admin: 03/04/24 09:30 Dose: 300 mg Benzocaine (Throat Lozenge, Medicated Lozenge) 1 lozenge MUCOUS MEM Q2H PRN PRN Reason: Sore Throat Last Admin: 10/28/24 20:59 Dose: 1 lozenge Benztropine Mesylate (Benztropine Mesylate 0.5 Mg Tablet) 0.5 mg PO TID PRN PRN Reason: Extrapyramidal Effects Glucose (Glucose Gel 15 Gm Gel..Gram.) 15 gm PO Q15M PRN; Protocol PRN Reason: per Hypoglycemia Standing Ord. Guaifenesin/Dextromethorphan (Guaifenesin Dm 100/10/5 Ml 5 Ml Syrup) 5 ml PO Q4H PRN PRN Reason: Cough Last Admin: 03/01/24 08:16 Dose: 5 ml Hydroxyzine HCl (Hydroxyzine Hcl 25 Mg Tablet) 25 mg PO Q6H PRN PRN Reason: Anxiety Last Admin: 03/15/24 20:57 Dose: 25 mg Insulin Glargine (Insulin Glargine,Hum.Rec.Anlog 100 Unit/Ml 10 Ml Vial) 20 unit SUBCUT BEDTIME [facility] Last Admin: 03/16/24 20:01 Dose: 20 unit Lamotrigine (Lamotrigine 100 Mg Tablet) 150 mg PO BEDTIME [facility] Last Admin: 03/16/24 20:01 Dose: 150 mg Levothyroxine Sodium (Levothyroxine Sodium 150 Mcg Tablet) 150 mcg PO DAILY@0630 [facility] Last Admin: 03/17/24 05:17 Dose: 150 mcg Magnesium Hydroxide (Milk Of Magnesia 30 Ml Oral.Susp) 30 ml PO DAILY PRN PRN Reason: Constipation Memantine (Memantine Hcl 5 Mg Tablet) 5 mg PO BID [facility] Last Admin: 03/17/24 08:22 Dose: 5 mg Metformin HCl (Metformin Hcl Er 500 Mg Tab.Er.24h) 1,000 mg PO DAILY@1700 [facility] Last Admin: 03/16/24 16:22 Dose: 1,000 mg Ondansetron HCl (Ondansetron Odt 8 Mg Tab.Rapdis) 8 mg TRANSLINGU Q8H PRN PRN Reason: Nausea and Vomiting Last Admin: 02/17/24 10:06 Dose: 8 mg Pseudoephedrine HCl (Pseudoephedrine Hcl 30 Mg Tablet) 30 mg PO Q4H PRN PRN Reason: Nasal Congestion Last Admin: 03/03/24 08:45 Dose: 30 mg Sertraline HCl (Sertraline Hcl 50 Mg Tablet) 50 mg PO DAILY [facility] Last Admin: 03/17/24 08:22 Dose: 50 mg Simethicone (Simethicone 80 Mg Tab.Chew) 80 mg PO QIDWMHS PRN PRN Reason: Gas Trazodone HCl (Trazodone Hcl 50 Mg Tablet) 50 mg PO BEDTIME MRX1 PRN PRN Reason: Insomnia Last Admin: 03/15/24 21:50 Dose: 50 mg Allergies Allergies Allergy/AdvReac Type Severity Reaction Status Date / Time amoxicillin [AMOXICILLIN] Allergy Mild VOMITING/ABD Verified 09/10/23 19:44 PAIN Assessment & Plan Assessment & Plan (1) Schizoaffective disorder: Status: Acute Code(s): F25.9 - Schizoaffective disorder, unspecified (2) Hypothyroidism: Status: Acute Code(s): E03.9 - Hypothyroidism, unspecified (3) Type 2 diabetes mellitus: Status: Acute Code(s): E11.9 - Type 2 diabetes mellitus without complications (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 Continue with same medications. 2. Waiting for placement. Reason for continued inpatient stay Substantial Risk for: inability to function, rapid decompensation and med/psych decompensation Time Spent With Patient Time: Total time managing care of this patient today __20__ minutes.
[2024-03-17] MEDS: metFORMIN HCl ER 500 MG TAB.ER.24H 1000 MG PO (16:36)
[2024-03-17 19:44] VITALS: BP 120/66; PULSE 75; RESP 16; TEMP 37; O2SAT 97
[2024-03-17] MEDS: lamoTRIgine 100 MG TABLET 150 MG PO (19:46)
[2024-03-17] MEDS: Insulin Glargine,Hum.rec.anlog 100 UNIT/ML 10 ML VIAL 20 UNIT SUBCUT (19:46)
[2024-03-18 00:07] LABS: Glucose, Whole Blood 117 mg/dL (60-115)
[2024-03-18] MEDS: Levothyroxine Sodium 150 MCG TABLET PO (05:24)
[2024-03-18 05:38] LABS: Glucose, Whole Blood 91 mg/dL (60-115)
[2024-03-18 08:00] VITALS: BP 142/66; PULSE 81; RESP 18; TEMP 36.6; O2SAT 96
[2024-03-18] MEDS: Sertraline HCL 50 MG TABLET PO (08:22)
[2024-03-18] MEDS: Memantine HCl 5 MG TABLET PO ×2 (08:22→20:02)
--- NOTE | 2024-03-18 12:06 | HO.PSYCHPN ---
Subjective Subjective Date of Service: 03/18/24 Reason For Visit: crisis Subjective Notes: Conditional Voluntary Interim History: The nursing staff reported the patient had been compliant with treatment no changes in his mental status. On interview the patient denies new symptoms, waiting for placement. Mental Status Exam Mental Status Exam Patient Appearance: Well Grooomed and Appropriate Patient Orientation: Person and Situation Level of Consciousness: Awake and Appropriate Patient Behavior: Appropriate Mood Description: Calm Affect Description: Constricted Patient Cognition Impaired: Yes Ability to Follow Directions: Good Speech Pattern: Clear 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: None Delusions: Not Present Thought Process: Distracted and Slowed Thinking Thought Content: positive for [place] and positive for Poverty of Content Judgement: Fair Diagnostics Vital Signs (24Hr): Vital Signs - 24 hr 03/17/24 19:44 03/18/24 08:00 Temperature 98.6 F 97.9 F Pulse Rate 75 81 Respiratory Rate 16 18 Blood Pressure 120/66 142/66 H Pulse Oximetry 97 96 Oxygen Delivery Method Room Air Room Air BMI result Body Mass Index 30.8 Labs 09/10/23 20:00 03/12/24 07:27 Labs: Laboratory Results - last 48 hr 03/17/24 03/18/24 05:19 05:31 POC Glucose 117 H 91 Imaging Radiology Impressions: ITS Impressions Brain MRI 09/19/23 20:33 IMPRESSION: 1. No demonstrated acute intracranial abnormalities. 2. Chronic mild to moderate nonspecific white matter changes, most notably in the deep white matter of the right frontal lobe. Mild to moderate generalized cerebral volume loss. Medications Medications Current Medications Acetaminophen (Acetaminophen 325 Mg Tablet) 650 mg PO Q6H PRN PRN Reason: Headache/Pain Mild Scale (1-3) Last Admin: 03/03/24 08:45 Dose: 650 mg Al Hydroxide/Mg Hydroxide (Magnesium Hydrox/Alum Hydrox 30 Ml Oral.Susp) 30 ml PO Q6H PRN PRN Reason: Heartburn/Nausea Last Admin: 11/27/23 10:48 Dose: 30 ml Aripiprazole (Aripiprazole Er 300 Mg Suser.Syr) 300 mg IM Q28D@0900 [facility] Last Admin: 03/04/24 09:30 Dose: 300 mg Benzocaine (Throat Lozenge, Medicated Lozenge) 1 lozenge MUCOUS MEM Q2H PRN PRN Reason: Sore Throat Last Admin: 12/30/23 20:59 Dose: 1 lozenge Benztropine Mesylate (Benztropine Mesylate 0.5 Mg Tablet) 0.5 mg PO TID PRN PRN Reason: Extrapyramidal Effects Glucose (Glucose Gel 15 Gm Gel..Gram.) 15 gm PO Q15M PRN; Protocol PRN Reason: per Hypoglycemia Standing Ord. Guaifenesin/Dextromethorphan (Guaifenesin Dm 100/10/5 Ml 5 Ml Syrup) 5 ml PO Q4H PRN PRN Reason: Cough Last Admin: 03/01/24 08:16 Dose: 5 ml Hydroxyzine HCl (Hydroxyzine Hcl 25 Mg Tablet) 25 mg PO Q6H PRN PRN Reason: Anxiety Last Admin: 03/15/24 20:57 Dose: 25 mg Insulin Glargine (Insulin Glargine,Hum.Rec.Anlog 100 Unit/Ml 10 Ml Vial) 20 unit SUBCUT BEDTIME [facility] Last Admin: 03/17/24 19:46 Dose: 20 unit Lamotrigine (Lamotrigine 100 Mg Tablet) 150 mg PO BEDTIME [facility] Last Admin: 03/17/24 19:46 Dose: 150 mg Levothyroxine Sodium (Levothyroxine Sodium 150 Mcg Tablet) 150 mcg PO DAILY@0630 [facility] Last Admin: 03/18/24 05:24 Dose: 150 mcg Magnesium Hydroxide (Milk Of Magnesia 30 Ml Oral.Susp) 30 ml PO DAILY PRN PRN Reason: Constipation Memantine (Memantine Hcl 5 Mg Tablet) 5 mg PO BID [facility] Last Admin: 03/18/24 08:22 Dose: 5 mg Metformin HCl (Metformin Hcl Er 500 Mg Tab.Er.24h) 1,000 mg PO DAILY@1700 [facility] Last Admin: 03/17/24 16:36 Dose: 1,000 mg Ondansetron HCl (Ondansetron Odt 8 Mg Tab.Rapdis) 8 mg TRANSLINGU Q8H PRN PRN Reason: Nausea and Vomiting Last Admin: 02/17/24 10:06 Dose: 8 mg Pseudoephedrine HCl (Pseudoephedrine Hcl 30 Mg Tablet) 30 mg PO Q4H PRN PRN Reason: Nasal Congestion Last Admin: 03/03/24 08:45 Dose: 30 mg Sertraline HCl (Sertraline Hcl 50 Mg Tablet) 50 mg PO DAILY [facility] Last Admin: 03/18/24 08:22 Dose: 50 mg Simethicone (Simethicone 80 Mg Tab.Chew) 80 mg PO QIDWMHS PRN PRN Reason: Gas Trazodone HCl (Trazodone Hcl 50 Mg Tablet) 50 mg PO BEDTIME MRX1 PRN PRN Reason: Insomnia Last Admin: 03/15/24 21:50 Dose: 50 mg Allergies Allergies Allergy/AdvReac Type Severity Reaction Status Date / Time amoxicillin [AMOXICILLIN] Allergy Mild VOMITING/ABD Verified 09/10/23 19:44 PAIN Assessment & Plan Assessment & Plan (1) Schizoaffective disorder: Status: Acute Code(s): F25.9 - Schizoaffective disorder, unspecified (2) Hypothyroidism: Status: Acute Code(s): E03.9 - Hypothyroidism, unspecified (3) Type 2 diabetes mellitus: Status: Acute Code(s): E11.9 - Type 2 diabetes mellitus without complications (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 Continue with same medications. 2. Waiting for placement. Reason for continued inpatient stay Substantial Risk for: inability to function, rapid decompensation and med/psych decompensation Time Spent With Patient Time: Total time managing care of this patient today __20__ minutes.
[2024-03-18] MEDS: metFORMIN HCl ER 500 MG TAB.ER.24H 1000 MG PO (16:27)
[2024-03-18 20:00] VITALS: BP 109/59; PULSE 87; TEMP 36.7; O2SAT 97
[2024-03-18] MEDS: Insulin Glargine,Hum.rec.anlog 100 UNIT/ML 10 ML VIAL 20 UNIT SUBCUT (20:00)
[2024-03-18] MEDS: lamoTRIgine 100 MG TABLET 150 MG PO (20:01)
[2024-03-18] MEDS: traZODone HCL 50 MG TABLET PO (20:03)
[2024-03-19] MEDS: Levothyroxine Sodium 150 MCG TABLET PO (06:17)
[2024-03-19 06:23] LABS: Glucose, Whole Blood 111 mg/dL (60-115)
[2024-03-19 08:33] VITALS: BP 129/75; PULSE 72; RESP 16; TEMP 36.1; O2SAT 96
[2024-03-19] MEDS: Memantine HCl 5 MG TABLET PO ×2 (08:35→21:19)
[2024-03-19] MEDS: Sertraline HCL 50 MG TABLET PO (08:35)
[2024-03-19 09:26] LABS: Creatinine Clr Calc Pharmacy 110.7; Estimated Glomerular Filt Rate > 60
[2024-03-19 14:37] VITALS: BMI 31.2
[2024-03-19] MEDS: metFORMIN HCl ER 500 MG TAB.ER.24H 1000 MG PO (16:36)
--- NOTE | 2024-03-19 16:41 | HO.PSYCHPN ---
Subjective Subjective Date of Service: 03/19/24 Reason For Visit: crisis Subjective Notes: Conditional Voluntary Interim History: The nursing staff reported no changes in her mental status cooperative pleasant. On interview the patient denies new symptoms, waiting for placement. Mental Status Exam Mental Status Exam Patient Appearance: Well Grooomed Patient Orientation: Person and Situation Level of Consciousness: Awake and Appropriate Patient Behavior: Guarded and Passive Mood Description: Calm Affect Description: Constricted Patient Cognition Impaired: Yes Ability to Follow Directions: Good Speech Pattern: Clear 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: None Delusions: Ideas of Reference Thought Process: Distracted Thought Content: positive for [place] and positive for Poverty of Content Judgement: Fair Diagnostics Vital Signs (24Hr): Vital Signs - 24 hr 03/18/24 20:00 03/19/24 08:33 Temperature 98.1 F 97.0 F Pulse Rate 87 72 Respiratory Rate 16 Blood Pressure 109/59 L 129/75 Pulse Oximetry 97 96 Oxygen Delivery Method Room Air Room Air BMI result Body Mass Index 31.2 Labs 09/10/23 20:00 03/19/24 08:27 Labs: Laboratory Results - last 48 hr 03/17/24 03/18/24 03/19/24 05:19 05:31 06:15 Creatinine Estim Creat Clear Calc Estimated GFR POC Glucose 117 H 91 111 03/19/24 08:27 Creatinine 0.81 Estim Creat Clear Calc 110.7 Estimated GFR > 60 POC Glucose Imaging Radiology Impressions: ITS Impressions Brain MRI 09/19/23 20:33 IMPRESSION: 1. No demonstrated acute intracranial abnormalities. 2. Chronic mild to moderate nonspecific white matter changes, most notably in the deep white matter of the right frontal lobe. Mild to moderate generalized cerebral volume loss. Medications Medications Current Medications Acetaminophen (Acetaminophen 325 Mg Tablet) 650 mg PO Q6H PRN PRN Reason: Headache/Pain Mild Scale (1-3) Last Admin: 03/03/24 08:45 Dose: 650 mg Al Hydroxide/Mg Hydroxide (Magnesium Hydrox/Alum Hydrox 30 Ml Oral.Susp) 30 ml PO Q6H PRN PRN Reason: Heartburn/Nausea Last Admin: 11/27/23 10:48 Dose: 30 ml Aripiprazole (Aripiprazole Er 300 Mg Suser.Syr) 300 mg IM Q28D@0900 MANAS Last Admin: 03/04/24 09:30 Dose: 300 mg Benzocaine (Throat Lozenge, Medicated Lozenge) 1 lozenge MUCOUS MEM Q2H PRN PRN Reason: Sore Throat Last Admin: 12/30/23 20:59 Dose: 1 lozenge Benztropine Mesylate (Benztropine Mesylate 0.5 Mg Tablet) 0.5 mg PO TID PRN PRN Reason: Extrapyramidal Effects Glucose (Glucose Gel 15 Gm Gel..Gram.) 15 gm PO Q15M PRN; Protocol PRN Reason: per Hypoglycemia Standing Ord. Guaifenesin/Dextromethorphan (Guaifenesin Dm 100/10/5 Ml 5 Ml Syrup) 5 ml PO Q4H PRN PRN Reason: Cough Last Admin: 03/01/24 08:16 Dose: 5 ml Hydroxyzine HCl (Hydroxyzine Hcl 25 Mg Tablet) 25 mg PO Q6H PRN PRN Reason: Anxiety Last Admin: 03/15/24 20:57 Dose: 25 mg Insulin Glargine (Insulin Glargine,Hum.Rec.Anlog 100 Unit/Ml 10 Ml Vial) 20 unit SUBCUT BEDTIME [facility] Last Admin: 03/18/24 20:00 Dose: 20 unit Lamotrigine (Lamotrigine 100 Mg Tablet) 150 mg PO BEDTIME [facility] Last Admin: 03/18/24 20:01 Dose: 150 mg Levothyroxine Sodium (Levothyroxine Sodium 150 Mcg Tablet) 150 mcg PO DAILY@0630 [facility] Last Admin: 03/19/24 06:17 Dose: 150 mcg Magnesium Hydroxide (Milk Of Magnesia 30 Ml Oral.Susp) 30 ml PO DAILY PRN PRN Reason: Constipation Memantine (Memantine Hcl 5 Mg Tablet) 5 mg PO BID [facility] Last Admin: 03/19/24 08:35 Dose: 5 mg Metformin HCl (Metformin Hcl Er 500 Mg Tab.Er.24h) 1,000 mg PO DAILY@1700 [facility] Last Admin: 03/19/24 16:36 Dose: 1,000 mg Ondansetron HCl (Ondansetron Odt 8 Mg Tab.Rapdis) 8 mg TRANSLINGU Q8H PRN PRN Reason: Nausea and Vomiting Last Admin: 02/17/24 10:06 Dose: 8 mg Pseudoephedrine HCl (Pseudoephedrine Hcl 30 Mg Tablet) 30 mg PO Q4H PRN PRN Reason: Nasal Congestion Last Admin: 03/03/24 08:45 Dose: 30 mg Sertraline HCl (Sertraline Hcl 50 Mg Tablet) 50 mg PO DAILY [facility]NAS Last Admin: 03/19/24 08:35 Dose: 50 mg Simethicone (Simethicone 80 Mg Tab.Chew) 80 mg PO QIDWMHS PRN PRN Reason: Gas Trazodone HCl (Trazodone Hcl 50 Mg Tablet) 50 mg PO BEDTIME MRX1 PRN PRN Reason: Insomnia Last Admin: 03/18/24 20:03 Dose: 50 mg Allergies Allergies Allergy/AdvReac Type Severity Reaction Status Date / Time amoxicillin [AMOXICILLIN] Allergy Mild VOMITING/ABD Verified 09/10/23 19:44 PAIN Assessment & Plan Assessment & Plan (1) Schizoaffective disorder: Status: Acute Code(s): F25.9 - Schizoaffective disorder, unspecified (2) Hypothyroidism: Status: Acute Code(s): E03.9 - Hypothyroidism, unspecified (3) Type 2 diabetes mellitus: Status: Acute Code(s): E11.9 - Type 2 diabetes mellitus without complications (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 Continue with same medications. 2. Waiting for placement. Reason for continued inpatient stay Substantial Risk for: inability to function, rapid decompensation and med/psych decompensation Time Spent With Patient Time: Total time managing care of this patient today __20__ minutes.
[2024-03-19 20:00] VITALS: BP 115/65; PULSE 75; RESP 18; TEMP 36.4; O2SAT 95
[2024-03-19] MEDS: hydrOXYzine HCL 25 MG TABLET PO (21:19)
[2024-03-19] MEDS: lamoTRIgine 100 MG TABLET 150 MG PO (21:20)
[2024-03-19] MEDS: traZODone HCL 50 MG TABLET PO (21:21)
[2024-03-19] MEDS: Insulin Glargine,Hum.rec.anlog 100 UNIT/ML 10 ML VIAL 20 UNIT SUBCUT (21:22)
[2024-03-20] MEDS: Levothyroxine Sodium 150 MCG TABLET PO (06:01)
[2024-03-20 06:18] LABS: Glucose, Whole Blood 113 mg/dL (60-115)
[2024-03-20 07:53] VITALS: BP 115/75; PULSE 91; RESP 18; TEMP 36.2; O2SAT 99
[2024-03-20] MEDS: Memantine HCl 5 MG TABLET PO ×2 (08:47→21:14)
[2024-03-20] MEDS: Sertraline HCL 50 MG TABLET PO (08:47)
[2024-03-20] MEDS: hydrOXYzine HCL 25 MG TABLET PO ×2 (08:47→21:14)
--- NOTE | 2024-03-20 10:13 | P.PNPSI_ITS ---
Subjective Subjective Date of Service: 03/20/24 Reason For Visit: crisis Subjective Notes: Conditional Voluntary Interim History: The nursing staff reported the patient had been compliant with treatment, no changes in mental status. On interview the patient denies new symptoms, waiting for placement. Mental Status Exam Mental Status Exam Patient Appearance: Appropriate Patient Orientation: Person and Situation Level of Consciousness: Awake and Appropriate Patient Behavior: Guarded and Passive Mood Description: Withdrawn Affect Description: Constricted Patient Cognition Impaired: Yes Ability to Follow Directions: Good Speech Pattern: Clear 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: None Delusions: Not Present Thought Process: Distracted and Linear Thought Content: positive for [place] and positive for Poverty of Content Judgement: Fair Diagnostics Vital Signs (24Hr): Vital Signs - 24 hr 03/19/24 20:00 03/20/24 07:53 Temperature 97.5 F 97.1 F Pulse Rate 75 91 Respiratory Rate 18 18 Blood Pressure 115/65 115/75 Pulse Oximetry 95 99 Oxygen Delivery Method Room Air Room Air BMI result Body Mass Index 31.2 Labs 09/10/23 20:00 03/19/24 08:27 Labs: Laboratory Results - last 48 hr 03/19/24 03/19/24 03/20/24 06:15 08:27 06:03 Creatinine 0.81 Estim Creat Clear Calc 110.7 Estimated GFR > 60 POC Glucose 111 113 Imaging Radiology Impressions: ITS Impressions Brain MRI 09/19/23 20:33 IMPRESSION: 1. No demonstrated acute intracranial abnormalities. 2. Chronic mild to moderate nonspecific white matter changes, most notably in the deep white matter of the right frontal lobe. Mild to moderate generalized cerebral volume loss. Medications Medications Current Medications Acetaminophen (Acetaminophen 325 Mg Tablet) 650 mg PO Q6H PRN PRN Reason: Headache/Pain Mild Scale (1-3) Last Admin: 03/03/24 08:45 Dose: 650 mg Al Hydroxide/Mg Hydroxide (Magnesium Hydrox/Alum Hydrox 30 Ml Oral.Susp) 30 ml PO Q6H PRN PRN Reason: Heartburn/Nausea Last Admin: 11/27/23 10:48 Dose: 30 ml Aripiprazole (Aripiprazole Er 300 Mg Suser.Syr) 300 mg IM Q28D@0900 MANAS Last Admin: 03/04/24 09:30 Dose: 300 mg Benzocaine (Throat Lozenge, Medicated Lozenge) 1 lozenge MUCOUS MEM Q2H PRN PRN Reason: Sore Throat Last Admin: 12/30/23 20:59 Dose: 1 lozenge Benztropine Mesylate (Benztropine Mesylate 0.5 Mg Tablet) 0.5 mg PO TID PRN PRN Reason: Extrapyramidal Effects Glucose (Glucose Gel 15 Gm Gel..Gram.) 15 gm PO Q15M PRN; Protocol PRN Reason: per Hypoglycemia Standing Ord. Guaifenesin/Dextromethorphan (Guaifenesin Dm 100/10/5 Ml 5 Ml Syrup) 5 ml PO Q4H PRN PRN Reason: Cough Last Admin: 03/01/24 08:16 Dose: 5 ml Hydroxyzine HCl (Hydroxyzine Hcl 25 Mg Tablet) 25 mg PO Q6H PRN PRN Reason: Anxiety Last Admin: 03/20/24 08:47 Dose: 25 mg Insulin Glargine (Insulin Glargine,Hum.Rec.Anlog 100 Unit/Ml 10 Ml Vial) 20 unit SUBCUT BEDTIME [facility] Last Admin: 03/19/24 21:22 Dose: 20 unit Lamotrigine (Lamotrigine 100 Mg Tablet) 150 mg PO BEDTIME [facility] Last Admin: 03/19/24 21:20 Dose: 150 mg Levothyroxine Sodium (Levothyroxine Sodium 150 Mcg Tablet) 150 mcg PO DAILY@0630 [facility] Last Admin: 03/20/24 06:01 Dose: 150 mcg Magnesium Hydroxide (Milk Of Magnesia 30 Ml Oral.Susp) 30 ml PO DAILY PRN PRN Reason: Constipation Memantine (Memantine Hcl 5 Mg Tablet) 5 mg PO BID [facility] Last Admin: 03/20/24 08:47 Dose: 5 mg Metformin HCl (Metformin Hcl Er 500 Mg Tab.Er.24h) 1,000 mg PO DAILY@1700 [facility] Last Admin: 03/19/24 16:36 Dose: 1,000 mg Ondansetron HCl (Ondansetron Odt 8 Mg Tab.Rapdis) 8 mg TRANSLINGU Q8H PRN PRN Reason: Nausea and Vomiting Last Admin: 02/17/24 10:06 Dose: 8 mg Pseudoephedrine HCl (Pseudoephedrine Hcl 30 Mg Tablet) 30 mg PO Q4H PRN PRN Reason: Nasal Congestion Last Admin: 03/03/24 08:45 Dose: 30 mg Sertraline HCl (Sertraline Hcl 50 Mg Tablet) 50 mg PO DAILY [facility] Last Admin: 03/20/24 08:47 Dose: 50 mg Simethicone (Simethicone 80 Mg Tab.Chew) 80 mg PO QIDWMHS PRN PRN Reason: Gas Trazodone HCl (Trazodone Hcl 50 Mg Tablet) 50 mg PO BEDTIME MRX1 PRN PRN Reason: Insomnia Last Admin: 03/19/24 21:21 Dose: 50 mg Allergies Allergies Allergy/AdvReac Type Severity Reaction Status Date / Time amoxicillin [AMOXICILLIN] Allergy Mild VOMITING/ABD Verified 09/10/23 19:44 PAIN Assessment & Plan Assessment & Plan (1) Schizoaffective disorder: Status: Acute Code(s): F25.9 - Schizoaffective disorder, unspecified (2) Hypothyroidism: Status: Acute Code(s): E03.9 - Hypothyroidism, unspecified (3) Type 2 diabetes mellitus: Status: Acute Code(s): E11.9 - Type 2 diabetes mellitus without complications (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 Continue with same medications. 2. Waiting for placement. Reason for continued inpatient stay Substantial Risk for: inability to function, rapid decompensation and med/psych decompensation Time Spent With Patient Time: Total time managing care of this patient today __20__ minutes.
[2024-03-20] MEDS: metFORMIN HCl ER 500 MG TAB.ER.24H 1000 MG PO (16:45)
[2024-03-20 19:47] VITALS: BP 132/80; PULSE 82; TEMP 36.9; O2SAT 98
[2024-03-20] MEDS: Insulin Glargine,Hum.rec.anlog 100 UNIT/ML 10 ML VIAL 20 UNIT SUBCUT (21:13)
[2024-03-20] MEDS: traZODone HCL 50 MG TABLET PO (21:14)
[2024-03-20] MEDS: lamoTRIgine 100 MG TABLET 150 MG PO (21:14)
[2024-03-21] MEDS: Levothyroxine Sodium 150 MCG TABLET PO (06:21)
[2024-03-21 06:45] LABS: Glucose, Whole Blood 126 mg/dL (60-115)
[2024-03-21 08:35] VITALS: BP 128/67; PULSE 70; RESP 17; TEMP 36.4; O2SAT 97
[2024-03-21] MEDS: Sertraline HCL 50 MG TABLET PO (08:42)
[2024-03-21] MEDS: Memantine HCl 5 MG TABLET PO ×2 (08:42→20:30)
--- NOTE | 2024-03-21 08:55 | HO.PSYCHPN ---
Subjective Subjective Date of Service: 03/21/24 Reason For Visit: crisis Subjective Notes: Conditional Voluntary Interim History: The nursing staff reported the patient had been compliant with treatment no changes in mental status. On interview the patient denies new symptoms waiting for placement. Mental Status Exam Mental Status Exam Patient Appearance: Appropriate Patient Orientation: Person and Situation Level of Consciousness: Awake Diagnostics Vital Signs (24Hr): Vital Signs - 24 hr 03/20/24 19:47 03/21/24 08:35 Temperature 98.4 F 97.5 F Pulse Rate 82 70 Respiratory Rate 17 Blood Pressure 132/80 128/67 Pulse Oximetry 98 97 Oxygen Delivery Method Room Air Room Air BMI result Body Mass Index 31.2 Labs 09/10/23 20:00 03/19/24 08:27 Labs: Laboratory Results - last 48 hr 03/19/24 03/20/24 03/21/24 08:27 06:03 06:20 Creatinine 0.81 Estim Creat Clear Calc 110.7 Estimated GFR > 60 POC Glucose 113 126 H Imaging Radiology Impressions: ITS Impressions Brain MRI 09/19/23 20:33 IMPRESSION: 1. No demonstrated acute intracranial abnormalities. 2. Chronic mild to moderate nonspecific white matter changes, most notably in the deep white matter of the right frontal lobe. Mild to moderate generalized cerebral volume loss. Medications Medications Current Medications Acetaminophen (Acetaminophen 325 Mg Tablet) 650 mg PO Q6H PRN PRN Reason: Headache/Pain Mild Scale (1-3) Last Admin: 03/03/24 08:45 Dose: 650 mg Al Hydroxide/Mg Hydroxide (Magnesium Hydrox/Alum Hydrox 30 Ml Oral.Susp) 30 ml PO Q6H PRN PRN Reason: Heartburn/Nausea Last Admin: 11/27/23 10:48 Dose: 30 ml Aripiprazole (Aripiprazole Er 300 Mg Suser.Syr) 300 mg IM Q28D@0900 [facility]NAS Last Admin: 03/04/24 09:30 Dose: 300 mg Benzocaine (Throat Lozenge, Medicated Lozenge) 1 lozenge MUCOUS MEM Q2H PRN PRN Reason: Sore Throat Last Admin: 12/30/23 20:59 Dose: 1 lozenge Benztropine Mesylate (Benztropine Mesylate 0.5 Mg Tablet) 0.5 mg PO TID PRN PRN Reason: Extrapyramidal Effects Glucose (Glucose Gel 15 Gm Gel..Gram.) 15 gm PO Q15M PRN; Protocol PRN Reason: per Hypoglycemia Standing Ord. Guaifenesin/Dextromethorphan (Guaifenesin Dm 100/10/5 Ml 5 Ml Syrup) 5 ml PO Q4H PRN PRN Reason: Cough Last Admin: 03/01/24 08:16 Dose: 5 ml Hydroxyzine HCl (Hydroxyzine Hcl 25 Mg Tablet) 25 mg PO Q6H PRN PRN Reason: Anxiety Last Admin: 03/20/24 21:14 Dose: 25 mg Insulin Glargine (Insulin Glargine,Hum.Rec.Anlog 100 Unit/Ml 10 Ml Vial) 20 unit SUBCUT BEDTIME [facility] Last Admin: 03/20/24 21:13 Dose: 20 unit Lamotrigine (Lamotrigine 100 Mg Tablet) 150 mg PO BEDTIME [facility] Last Admin: 03/20/24 21:14 Dose: 150 mg Levothyroxine Sodium (Levothyroxine Sodium 150 Mcg Tablet) 150 mcg PO DAILY@0630 [facility] Last Admin: 03/21/24 06:21 Dose: 150 mcg Magnesium Hydroxide (Milk Of Magnesia 30 Ml Oral.Susp) 30 ml PO DAILY PRN PRN Reason: Constipation Memantine (Memantine Hcl 5 Mg Tablet) 5 mg PO BID [facility] Last Admin: 03/21/24 08:42 Dose: 5 mg Metformin HCl (Metformin Hcl Er 500 Mg Tab.Er.24h) 1,000 mg PO DAILY@1700 [facility] Last Admin: 03/20/24 16:45 Dose: 1,000 mg Ondansetron HCl (Ondansetron Odt 8 Mg Tab.Rapdis) 8 mg TRANSLINGU Q8H PRN PRN Reason: Nausea and Vomiting Last Admin: 02/17/24 10:06 Dose: 8 mg Pseudoephedrine HCl (Pseudoephedrine Hcl 30 Mg Tablet) 30 mg PO Q4H PRN PRN Reason: Nasal Congestion Last Admin: 03/03/24 08:45 Dose: 30 mg Sertraline HCl (Sertraline Hcl 50 Mg Tablet) 50 mg PO DAILY [facility] Last Admin: 03/21/24 08:42 Dose: 50 mg Simethicone (Simethicone 80 Mg Tab.Chew) 80 mg PO QIDWMHS PRN PRN Reason: Gas Trazodone HCl (Trazodone Hcl 50 Mg Tablet) 50 mg PO BEDTIME MRX1 PRN PRN Reason: Insomnia Last Admin: 03/20/24 21:14 Dose: 50 mg Allergies Allergies Allergy/AdvReac Type Severity Reaction Status Date / Time amoxicillin [AMOXICILLIN] Allergy Mild VOMITING/ABD Verified 09/10/23 19:44 PAIN Assessment & Plan Assessment & Plan (1) Schizoaffective disorder: Status: Acute Code(s): F25.9 - Schizoaffective disorder, unspecified (2) Hypothyroidism: Status: Acute Code(s): E03.9 - Hypothyroidism, unspecified (3) Type 2 diabetes mellitus: Status: Acute Code(s): E11.9 - Type 2 diabetes mellitus without complications (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 Continue with same medications. 2. Waiting for placement. Reason for continued inpatient stay Substantial Risk for: inability to function, rapid decompensation and med/psych decompensation Time Spent With Patient Time: Total time managing care of this patient today ____ minutes.
[2024-03-21] MEDS: metFORMIN HCl ER 500 MG TAB.ER.24H 1000 MG PO (16:42)
[2024-03-21 20:00] VITALS: BP 129/76; PULSE 80; RESP 16; TEMP 36.7; O2SAT 97
[2024-03-21] MEDS: Insulin Glargine,Hum.rec.anlog 100 UNIT/ML 10 ML VIAL 20 UNIT SUBCUT (20:29)
[2024-03-21] MEDS: traZODone HCL 50 MG TABLET PO (20:30)
[2024-03-21] MEDS: lamoTRIgine 100 MG TABLET 150 MG PO (20:30)
[2024-03-22] MEDS: Levothyroxine Sodium 150 MCG TABLET PO (06:13)
[2024-03-22 06:27] LABS: Glucose, Whole Blood 114 mg/dL (60-115)
[2024-03-22 08:00] VITALS: BP 120/76; PULSE 78; RESP 18; TEMP 36.6; O2SAT 97
[2024-03-22] MEDS: Memantine HCl 5 MG TABLET PO ×2 (08:25→19:42)
[2024-03-22] MEDS: Sertraline HCL 50 MG TABLET PO (08:25)
--- NOTE | 2024-03-22 10:55 | P.PNPSI_ITS ---
Subjective Subjective Date of Service: 03/22/24 Reason For Visit: crisis Subjective Notes: Conditional Voluntary Interim History: The nursing staff reported the patient had been compliant with treatment no changes in his mental status. On interview the patient denies new symptoms, waiting for placement. Mental Status Exam Mental Status Exam Patient Appearance: Appropriate Patient Orientation: Person and Situation Level of Consciousness: Awake and Appropriate Patient Behavior: Guarded and Passive Mood Description: Withdrawn Affect Description: Constricted Patient Cognition Impaired: Yes Ability to Follow Directions: Good Speech Pattern: Clear 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: None Delusions: Not Present Thought Process: Distracted Thought Content: positive for [place] and positive for Poverty of Content Judgement: Fair Diagnostics Vital Signs (24Hr): Vital Signs - 24 hr 03/21/24 20:00 03/22/24 08:00 Temperature 98.0 F 97.9 F Pulse Rate 80 78 Respiratory Rate 16 18 Blood Pressure 129/76 120/76 Pulse Oximetry 97 97 Oxygen Delivery Method Room Air Room Air BMI result Body Mass Index 31.2 Labs 09/10/23 20:00 03/19/24 08:27 Labs: Laboratory Results - last 48 hr 03/21/24 03/22/24 06:20 06:14 POC Glucose 126 H 114 Imaging Radiology Impressions: ITS Impressions Brain MRI 09/19/23 20:33 IMPRESSION: 1. No demonstrated acute intracranial abnormalities. 2. Chronic mild to moderate nonspecific white matter changes, most notably in the deep white matter of the right frontal lobe. Mild to moderate generalized cerebral volume loss. Medications Medications Current Medications Acetaminophen (Acetaminophen 325 Mg Tablet) 650 mg PO Q6H PRN PRN Reason: Headache/Pain Mild Scale (1-3) Last Admin: 03/03/24 08:45 Dose: 650 mg Al Hydroxide/Mg Hydroxide (Magnesium Hydrox/Alum Hydrox 30 Ml Oral.Susp) 30 ml PO Q6H PRN PRN Reason: Heartburn/Nausea Last Admin: 11/27/23 10:48 Dose: 30 ml Aripiprazole (Aripiprazole Er 300 Mg Suser.Syr) 300 mg IM Q28D@0900 [facility]NA[facility] Last Admin: 03/04/24 09:30 Dose: 300 mg Benzocaine (Throat Lozenge, Medicated Lozenge) 1 lozenge MUCOUS MEM Q2H PRN PRN Reason: Sore Throat Last Admin: 12/30/23 20:59 Dose: 1 lozenge Benztropine Mesylate (Benztropine Mesylate 0.5 Mg Tablet) 0.5 mg PO TID PRN PRN Reason: Extrapyramidal Effects Glucose (Glucose Gel 15 Gm Gel..Gram.) 15 gm PO Q15M PRN; Protocol PRN Reason: per Hypoglycemia Standing Ord. Guaifenesin/Dextromethorphan (Guaifenesin Dm 100/10/5 Ml 5 Ml Syrup) 5 ml PO Q4H PRN PRN Reason: Cough Last Admin: 03/01/24 08:16 Dose: 5 ml Hydroxyzine HCl (Hydroxyzine Hcl 25 Mg Tablet) 25 mg PO Q6H PRN PRN Reason: Anxiety Last Admin: 03/20/24 21:14 Dose: 25 mg Insulin Glargine (Insulin Glargine,Hum.Rec.Anlog 100 Unit/Ml 10 Ml Vial) 20 unit SUBCUT BEDTIME [facility] [place] Last Admin: 03/21/24 20:29 Dose: 20 unit Lamotrigine (Lamotrigine 100 Mg Tablet) 150 mg PO BEDTIME [facility] [place] Last Admin: 03/21/24 20:30 Dose: 150 mg Levothyroxine Sodium (Levothyroxine Sodium 150 Mcg Tablet) 150 mcg PO DAILY@0630 [facility] [place] Last Admin: 03/22/24 06:13 Dose: 150 mcg Magnesium Hydroxide (Milk Of Magnesia 30 Ml Oral.Susp) 30 ml PO DAILY PRN PRN Reason: Constipation Memantine (Memantine Hcl 5 Mg Tablet) 5 mg PO BID [facility] [place] Last Admin: 03/22/24 08:25 Dose: 5 mg Metformin HCl (Metformin Hcl Er 500 Mg Tab.Er.24h) 1,000 mg PO DAILY@1700 [facility] [place] Last Admin: 03/21/24 16:42 Dose: 1,000 mg Ondansetron HCl (Ondansetron Odt 8 Mg Tab.Rapdis) 8 mg TRANSLINGU Q8H PRN PRN Reason: Nausea and Vomiting Last Admin: 02/17/24 10:06 Dose: 8 mg Pseudoephedrine HCl (Pseudoephedrine Hcl 30 Mg Tablet) 30 mg PO Q4H PRN PRN Reason: Nasal Congestion Last Admin: 03/03/24 08:45 Dose: 30 mg Sertraline HCl (Sertraline Hcl 50 Mg Tablet) 50 mg PO DAILY [facility] [place] Last Admin: 03/22/24 08:25 Dose: 50 mg Simethicone (Simethicone 80 Mg Tab.Chew) 80 mg PO QIDWMHS PRN PRN Reason: Gas Trazodone HCl (Trazodone Hcl 50 Mg Tablet) 50 mg PO BEDTIME MRX1 PRN PRN Reason: Insomnia Last Admin: 03/21/24 20:30 Dose: 50 mg Allergies Allergies Allergy/AdvReac Type Severity Reaction Status Date / Time amoxicillin [AMOXICILLIN] Allergy Mild VOMITING/ABD Verified 09/10/23 19:44 PAIN Assessment & Plan Assessment & Plan (1) Schizoaffective disorder: Status: Acute Code(s): F25.9 - Schizoaffective disorder, unspecified (2) Hypothyroidism: Status: Acute Code(s): E03.9 - Hypothyroidism, unspecified (3) Type 2 diabetes mellitus: Status: Acute Code(s): E11.9 - Type 2 diabetes mellitus without complications (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 Continue with same medications. 2. Waiting for placement. Reason for continued inpatient stay Substantial Risk for: inability to function, rapid decompensation and med/psych decompensation Time Spent With Patient Time: Total time managing care of this patient today __20__ minutes.
[2024-03-22] MEDS: metFORMIN HCl ER 500 MG TAB.ER.24H 1000 MG PO (16:30)
[2024-03-22 19:40] VITALS: BP 117/64; PULSE 77; RESP 15; TEMP 36.7; O2SAT 94
[2024-03-22] MEDS: lamoTRIgine 100 MG TABLET 150 MG PO (19:42)
[2024-03-22] MEDS: Insulin Glargine,Hum.rec.anlog 100 UNIT/ML 10 ML VIAL 20 UNIT SUBCUT (19:42)
[2024-03-23] MEDS: Levothyroxine Sodium 150 MCG TABLET PO (05:27)
[2024-03-23 05:45] LABS: Glucose, Whole Blood 113 mg/dL (60-115)
[2024-03-23 08:00] VITALS: BP 134/74; PULSE 80; RESP 18; TEMP 36.8; O2SAT 97
[2024-03-23] MEDS: Sertraline HCL 50 MG TABLET PO (08:02)
[2024-03-23] MEDS: Memantine HCl 5 MG TABLET PO ×2 (08:02→20:53)
--- NOTE | 2024-03-23 13:25 | HO.PSYCHPN ---
Subjective Subjective Date of Service: 03/23/24 Reason For Visit: crisis Subjective Notes: Conditional Voluntary Interim History: The nursing staff reported the patient had been fully compliant with treatment no changes in mental status. On interview the patient denies new symptoms, waiting for placement. Mental Status Exam Mental Status Exam Patient Appearance: Appropriate Patient Orientation: Person and Situation Level of Consciousness: Awake and Appropriate Patient Behavior: Guarded and Passive Mood Description: Withdrawn Affect Description: Constricted Patient Cognition Impaired: Yes Ability to Follow Directions: Good Speech Pattern: Clear 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: None Delusions: Not Present Thought Process: Distracted and Slowed Thinking Thought Content: positive for [place] and positive for Poverty of Content Judgement: Fair Diagnostics Vital Signs (24Hr): Vital Signs - 24 hr 03/22/24 19:40 03/23/24 08:00 Temperature 98.1 F 98.2 F Pulse Rate 77 80 Respiratory Rate 15 18 Blood Pressure 117/64 134/74 Pulse Oximetry 94 97 Oxygen Delivery Method Room Air Room Air BMI result Body Mass Index 31.2 Labs 09/10/23 20:00 03/19/24 08:27 Labs: Laboratory Results - last 48 hr 03/22/24 03/23/24 06:14 05:35 POC Glucose 114 113 Imaging Radiology Impressions: ITS Impressions Brain MRI 09/19/23 20:33 IMPRESSION: 1. No demonstrated acute intracranial abnormalities. 2. Chronic mild to moderate nonspecific white matter changes, most notably in the deep white matter of the right frontal lobe. Mild to moderate generalized cerebral volume loss. Medications Medications Current Medications Acetaminophen (Acetaminophen 325 Mg Tablet) 650 mg PO Q6H PRN PRN Reason: Headache/Pain Mild Scale (1-3) Last Admin: 03/03/24 08:45 Dose: 650 mg Al Hydroxide/Mg Hydroxide (Magnesium Hydrox/Alum Hydrox 30 Ml Oral.Susp) 30 ml PO Q6H PRN PRN Reason: Heartburn/Nausea Last Admin: 11/27/23 10:48 Dose: 30 ml Aripiprazole (Aripiprazole Er 300 Mg Suser.Syr) 300 mg IM Q28D@0900 MANAS Last Admin: 03/04/24 09:30 Dose: 300 mg Benzocaine (Throat Lozenge, Medicated Lozenge) 1 lozenge MUCOUS MEM Q2H PRN PRN Reason: Sore Throat Last Admin: 12/30/23 20:59 Dose: 1 lozenge Benztropine Mesylate (Benztropine Mesylate 0.5 Mg Tablet) 0.5 mg PO TID PRN PRN Reason: Extrapyramidal Effects Glucose (Glucose Gel 15 Gm Gel..Gram.) 15 gm PO Q15M PRN; Protocol PRN Reason: per Hypoglycemia Standing Ord. Guaifenesin/Dextromethorphan (Guaifenesin Dm 100/10/5 Ml 5 Ml Syrup) 5 ml PO Q4H PRN PRN Reason: Cough Last Admin: 03/01/24 08:16 Dose: 5 ml Hydroxyzine HCl (Hydroxyzine Hcl 25 Mg Tablet) 25 mg PO Q6H PRN PRN Reason: Anxiety Last Admin: 03/20/24 21:14 Dose: 25 mg Insulin Glargine (Insulin Glargine,Hum.Rec.Anlog 100 Unit/Ml 10 Ml Vial) 20 unit SUBCUT BEDTIME REPLACED BY [facility] Last Admin: 03/22/24 19:42 Dose: 20 unit Lamotrigine (Lamotrigine 100 Mg Tablet) 150 mg PO BEDTIME REPLACED BY [facility] Last Admin: 03/22/24 19:42 Dose: 150 mg Levothyroxine Sodium (Levothyroxine Sodium 150 Mcg Tablet) 150 mcg PO DAILY@0630 REPLACED BY [facility] Last Admin: 03/23/24 05:27 Dose: 150 mcg Magnesium Hydroxide (Milk Of Magnesia 30 Ml Oral.Susp) 30 ml PO DAILY PRN PRN Reason: Constipation Memantine (Memantine Hcl 5 Mg Tablet) 5 mg PO BID REPLACED BY [facility] Last Admin: 03/23/24 08:02 Dose: 5 mg Metformin HCl (Metformin Hcl Er 500 Mg Tab.Er.24h) 1,000 mg PO DAILY@1700 REPLACED BY [facility] Last Admin: 03/22/24 16:30 Dose: 1,000 mg Ondansetron HCl (Ondansetron Odt 8 Mg Tab.Rapdis) 8 mg TRANSLINGU Q8H PRN PRN Reason: Nausea and Vomiting Last Admin: 02/17/24 10:06 Dose: 8 mg Pseudoephedrine HCl (Pseudoephedrine Hcl 30 Mg Tablet) 30 mg PO Q4H PRN PRN Reason: Nasal Congestion Last Admin: 03/03/24 08:45 Dose: 30 mg Sertraline HCl (Sertraline Hcl 50 Mg Tablet) 50 mg PO DAILY REPLACED BY [facility] Last Admin: 03/23/24 08:02 Dose: 50 mg Simethicone (Simethicone 80 Mg Tab.Chew) 80 mg PO QIDWMHS PRN PRN Reason: Gas Trazodone HCl (Trazodone Hcl 50 Mg Tablet) 50 mg PO BEDTIME MRX1 PRN PRN Reason: Insomnia Last Admin: 03/21/24 20:30 Dose: 50 mg Allergies Allergies Allergy/AdvReac Type Severity Reaction Status Date / Time amoxicillin [AMOXICILLIN] Allergy Mild VOMITING/ABD Verified 09/10/23 19:44 PAIN Assessment & Plan Assessment & Plan (1) Schizoaffective disorder: Status: Acute Code(s): F25.9 - Schizoaffective disorder, unspecified (2) Hypothyroidism: Status: Acute Code(s): E03.9 - Hypothyroidism, unspecified (3) Type 2 diabetes mellitus: Status: Acute Code(s): E11.9 - Type 2 diabetes mellitus without complications (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 Continue with same medications. 2. Waiting for placement. Reason for continued inpatient stay Substantial Risk for: inability to function, rapid decompensation and med/psych decompensation Time Spent With Patient Time: Total time managing care of this patient today ____ minutes.
[2024-03-23] MEDS: metFORMIN HCl ER 500 MG TAB.ER.24H 1000 MG PO (17:05)
[2024-03-23 20:00] VITALS: BP 121/73; PULSE 79; TEMP 36.1; O2SAT 94
[2024-03-23] MEDS: Insulin Glargine,Hum.rec.anlog 100 UNIT/ML 10 ML VIAL 20 UNIT SUBCUT (20:51)
[2024-03-23] MEDS: lamoTRIgine 100 MG TABLET 150 MG PO (20:52)
[2024-03-23] MEDS: traZODone HCL 50 MG TABLET PO (20:52)
[2024-03-24 05:50] LABS: Glucose, Whole Blood 135 mg/dL (60-115)
[2024-03-24] MEDS: Levothyroxine Sodium 150 MCG TABLET PO (06:23)
[2024-03-24] MEDS: Memantine HCl 5 MG TABLET PO ×2 (09:07→20:46)
[2024-03-24] MEDS: Sertraline HCL 50 MG TABLET PO (09:07)
--- NOTE | 2024-03-24 11:01 | HO.PSYCHPN ---
Subjective Subjective Date of Service: 03/24/24 Reason For Visit: crisis Subjective Notes: Conditional Voluntary Interim History: The nursing staff reported the patient had been pleasant cooperative no changes in his mental status. 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 On interview the patient denies new symptoms, waiting for placement Mental Status Exam Mental Status Exam Patient Appearance: Appropriate Patient Orientation: Person and Situation Level of Consciousness: Awake and Appropriate Patient Behavior: Guarded and Passive Mood Description: Withdrawn Affect Description: Constricted Patient Cognition Impaired: Yes Ability to Follow Directions: Good Speech Pattern: Clear 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: None Delusions: Not Present Thought Process: Distracted and Slowed Thinking Thought Content: positive for [place] and positive for Poverty of Content Judgement: Fair Diagnostics Vital Signs (24Hr): Vital Signs - 24 hr 03/23/24 20:00 03/24/24 09:06 Temperature 97 F Pulse Rate 79 Blood Pressure 121/73 Pulse Oximetry 94 Oxygen Delivery Method Room Air Room Air BMI result Body Mass Index 31.2 Labs 09/10/23 20:00 03/19/24 08:27 Labs: Laboratory Results - last 48 hr 03/23/24 03/24/24 05:35 05:45 POC Glucose 113 135 H Imaging Radiology Impressions: ITS Impressions Brain MRI 09/19/23 20:33 IMPRESSION: 1. No demonstrated acute intracranial abnormalities. 2. Chronic mild to moderate nonspecific white matter changes, most notably in the deep white matter of the right frontal lobe. Mild to moderate generalized cerebral volume loss. Medications Medications Current Medications Acetaminophen (Acetaminophen 325 Mg Tablet) 650 mg PO Q6H PRN PRN Reason: Headache/Pain Mild Scale (1-3) Last Admin: 03/03/24 08:45 Dose: 650 mg Al Hydroxide/Mg Hydroxide (Magnesium Hydrox/Alum Hydrox 30 Ml Oral.Susp) 30 ml PO Q6H PRN PRN Reason: Heartburn/Nausea Last Admin: 11/27/23 10:48 Dose: 30 ml Aripiprazole (Aripiprazole Er 300 Mg Suser.Syr) 300 mg IM Q28D@0900 [facility]NA[facility] Last Admin: 03/04/24 09:30 Dose: 300 mg Benzocaine (Throat Lozenge, Medicated Lozenge) 1 lozenge MUCOUS MEM Q2H PRN PRN Reason: Sore Throat Last Admin: 12/30/23 20:59 Dose: 1 lozenge Benztropine Mesylate (Benztropine Mesylate 0.5 Mg Tablet) 0.5 mg PO TID PRN PRN Reason: Extrapyramidal Effects Glucose (Glucose Gel 15 Gm Gel..Gram.) 15 gm PO Q15M PRN; Protocol PRN Reason: per Hypoglycemia Standing Ord. Guaifenesin/Dextromethorphan (Guaifenesin Dm 100/10/5 Ml 5 Ml Syrup) 5 ml PO Q4H PRN PRN Reason: Cough Last Admin: 03/01/24 08:16 Dose: 5 ml Hydroxyzine HCl (Hydroxyzine Hcl 25 Mg Tablet) 25 mg PO Q6H PRN PRN Reason: Anxiety Last Admin: 03/20/24 21:14 Dose: 25 mg Insulin Glargine (Insulin Glargine,Hum.Rec.Anlog 100 Unit/Ml 10 Ml Vial) 20 unit SUBCUT BEDTIME [facility] Last Admin: 03/23/24 20:51 Dose: 20 unit Lamotrigine (Lamotrigine 100 Mg Tablet) 150 mg PO BEDTIME [facility] Last Admin: 03/23/24 20:52 Dose: 150 mg Levothyroxine Sodium (Levothyroxine Sodium 150 Mcg Tablet) 150 mcg PO DAILY@0630 [facility] Last Admin: 03/24/24 06:23 Dose: 150 mcg Magnesium Hydroxide (Milk Of Magnesia 30 Ml Oral.Susp) 30 ml PO DAILY PRN PRN Reason: Constipation Memantine (Memantine Hcl 5 Mg Tablet) 5 mg PO BID [facility] Last Admin: 03/24/24 09:07 Dose: 5 mg Metformin HCl (Metformin Hcl Er 500 Mg Tab.Er.24h) 1,000 mg PO DAILY@1700 [facility] Last Admin: 03/23/24 17:05 Dose: 1,000 mg Ondansetron HCl (Ondansetron Odt 8 Mg Tab.Rapdis) 8 mg TRANSLINGU Q8H PRN PRN Reason: Nausea and Vomiting Last Admin: 02/17/24 10:06 Dose: 8 mg Pseudoephedrine HCl (Pseudoephedrine Hcl 30 Mg Tablet) 30 mg PO Q4H PRN PRN Reason: Nasal Congestion Last Admin: 03/03/24 08:45 Dose: 30 mg Sertraline HCl (Sertraline Hcl 50 Mg Tablet) 50 mg PO DAILY [facility] Last Admin: 03/24/24 09:07 Dose: 50 mg Simethicone (Simethicone 80 Mg Tab.Chew) 80 mg PO QIDWMHS PRN PRN Reason: Gas Trazodone HCl (Trazodone Hcl 50 Mg Tablet) 50 mg PO BEDTIME MRX1 PRN PRN Reason: Insomnia Last Admin: 03/23/24 20:52 Dose: 50 mg Allergies Allergies Allergy/AdvReac Type Severity Reaction Status Date / Time amoxicillin [AMOXICILLIN] Allergy Mild VOMITING/ABD Verified 09/10/23 19:44 PAIN Assessment & Plan Assessment & Plan (1) Schizoaffective disorder: Status: Acute Code(s): F25.9 - Schizoaffective disorder, unspecified (2) Hypothyroidism: Status: Acute Code(s): E03.9 - Hypothyroidism, unspecified (3) Type 2 diabetes mellitus: Status: Acute Code(s): E11.9 - Type 2 diabetes mellitus without complications (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 Continue with same medications. 2. Waiting for placement. Reason for continued inpatient stay Substantial Risk for: inability to function, rapid decompensation and med/psych decompensation Time Spent With Patient Time: Total time managing care of this patient today __20__ minutes.
[2024-03-24] MEDS: metFORMIN HCl ER 500 MG TAB.ER.24H 1000 MG PO (16:44)
[2024-03-24 20:00] VITALS: BP 125/60; PULSE 72; RESP 14; TEMP 36.6; O2SAT 95
[2024-03-24] MEDS: traZODone HCL 50 MG TABLET PO (20:46)
[2024-03-24] MEDS: Insulin Glargine,Hum.rec.anlog 100 UNIT/ML 10 ML VIAL 20 UNIT SUBCUT (20:46)
[2024-03-24] MEDS: lamoTRIgine 100 MG TABLET 150 MG PO (20:47)
[2024-03-25] MEDS: Levothyroxine Sodium 150 MCG TABLET PO (06:13)
[2024-03-25 06:21] LABS: Glucose, Whole Blood 134 mg/dL (60-115)
[2024-03-25 08:01] VITALS: BP 136/65; PULSE 92; RESP 18; TEMP 36.9; O2SAT 97
[2024-03-25] MEDS: hydrOXYzine HCL 25 MG TABLET PO ×2 (08:28→22:46)
[2024-03-25] MEDS: Sertraline HCL 50 MG TABLET PO (08:28)
[2024-03-25] MEDS: Memantine HCl 5 MG TABLET PO ×2 (08:28→20:22)
--- NOTE | 2024-03-25 14:31 | HO.PSYCHPN ---
Subjective Subjective Date of Service: 03/25/24 Reason For Visit: crisis Subjective Notes: Conditional Voluntary Interim History: The nursing staff reported no changes in his mental status cooperative pleasant. On interview the patient denies new symptoms waiting for placement. Mental Status Exam Mental Status Exam Patient Appearance: Appropriate Patient Orientation: Person and Situation Level of Consciousness: Awake and Appropriate Patient Behavior: Guarded and Passive Mood Description: Withdrawn Affect Description: Constricted Patient Cognition Impaired: Yes Ability to Follow Directions: Good Speech Pattern: Clear 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: None Delusions: Not Present Thought Process: Distracted and Slowed Thinking Thought Content: positive for [place] and positive for Poverty of Content Judgement: Fair Diagnostics Vital Signs (24Hr): Vital Signs - 24 hr 03/24/24 20:00 03/25/24 08:01 Temperature 98 F 98.4 F Pulse Rate 72 92 Respiratory Rate 14 18 Blood Pressure 125/60 136/65 Pulse Oximetry 95 97 Oxygen Delivery Method Room Air Room Air BMI result Body Mass Index 31.2 Labs 09/10/23 20:00 03/19/24 08:27 Labs: Laboratory Results - last 48 hr 03/24/24 03/25/24 05:45 06:11 POC Glucose 135 H 134 H Imaging Radiology Impressions: ITS Impressions Brain MRI 09/19/23 20:33 IMPRESSION: 1. No demonstrated acute intracranial abnormalities. 2. Chronic mild to moderate nonspecific white matter changes, most notably in the deep white matter of the right frontal lobe. Mild to moderate generalized cerebral volume loss. Medications Medications Current Medications Acetaminophen (Acetaminophen 325 Mg Tablet) 650 mg PO Q6H PRN PRN Reason: Headache/Pain Mild Scale (1-3) Last Admin: 03/03/24 08:45 Dose: 650 mg Al Hydroxide/Mg Hydroxide (Magnesium Hydrox/Alum Hydrox 30 Ml Oral.Susp) 30 ml PO Q6H PRN PRN Reason: Heartburn/Nausea Last Admin: 11/27/23 10:48 Dose: 30 ml Aripiprazole (Aripiprazole Er 300 Mg Suser.Syr) 300 mg IM Q28D@0900 [facility]NAS Last Admin: 03/04/24 09:30 Dose: 300 mg Benzocaine (Throat Lozenge, Medicated Lozenge) 1 lozenge MUCOUS MEM Q2H PRN PRN Reason: Sore Throat Last Admin: 12/30/23 20:59 Dose: 1 lozenge Benztropine Mesylate (Benztropine Mesylate 0.5 Mg Tablet) 0.5 mg PO TID PRN PRN Reason: Extrapyramidal Effects Glucose (Glucose Gel 15 Gm Gel..Gram.) 15 gm PO Q15M PRN; Protocol PRN Reason: per Hypoglycemia Standing Ord. Guaifenesin/Dextromethorphan (Guaifenesin Dm 100/10/5 Ml 5 Ml Syrup) 5 ml PO Q4H PRN PRN Reason: Cough Last Admin: 03/01/24 08:16 Dose: 5 ml Hydroxyzine HCl (Hydroxyzine Hcl 25 Mg Tablet) 25 mg PO Q6H PRN PRN Reason: Anxiety Last Admin: 03/25/24 08:28 Dose: 25 mg Insulin Glargine (Insulin Glargine,Hum.Rec.Anlog 100 Unit/Ml 10 Ml Vial) 20 unit SUBCUT BEDTIME [facility] Last Admin: 03/24/24 20:46 Dose: 20 unit Lamotrigine (Lamotrigine 100 Mg Tablet) 150 mg PO BEDTIME [facility] Last Admin: 03/24/24 20:47 Dose: 150 mg Levothyroxine Sodium (Levothyroxine Sodium 150 Mcg Tablet) 150 mcg PO DAILY@0630 [facility] Last Admin: 03/25/24 06:13 Dose: 150 mcg Magnesium Hydroxide (Milk Of Magnesia 30 Ml Oral.Susp) 30 ml PO DAILY PRN PRN Reason: Constipation Memantine (Memantine Hcl 5 Mg Tablet) 5 mg PO BID [facility] Last Admin: 03/25/24 08:28 Dose: 5 mg Metformin HCl (Metformin Hcl Er 500 Mg Tab.Er.24h) 1,000 mg PO DAILY@1700 [facility] Last Admin: 03/24/24 16:44 Dose: 1,000 mg Ondansetron HCl (Ondansetron Odt 8 Mg Tab.Rapdis) 8 mg TRANSLINGU Q8H PRN PRN Reason: Nausea and Vomiting Last Admin: 02/17/24 10:06 Dose: 8 mg Pseudoephedrine HCl (Pseudoephedrine Hcl 30 Mg Tablet) 30 mg PO Q4H PRN PRN Reason: Nasal Congestion Last Admin: 03/03/24 08:45 Dose: 30 mg Sertraline HCl (Sertraline Hcl 50 Mg Tablet) 50 mg PO DAILY [facility] Last Admin: 03/25/24 08:28 Dose: 50 mg Simethicone (Simethicone 80 Mg Tab.Chew) 80 mg PO QIDWMHS PRN PRN Reason: Gas Trazodone HCl (Trazodone Hcl 50 Mg Tablet) 50 mg PO BEDTIME MRX1 PRN PRN Reason: Insomnia Last Admin: 03/24/24 20:46 Dose: 50 mg Allergies Allergies Allergy/AdvReac Type Severity Reaction Status Date / Time amoxicillin [AMOXICILLIN] Allergy Mild VOMITING/ABD Verified 09/10/23 19:44 PAIN Assessment & Plan Assessment & Plan (1) Schizoaffective disorder: Status: Acute Code(s): F25.9 - Schizoaffective disorder, unspecified (2) Hypothyroidism: Status: Acute Code(s): E03.9 - Hypothyroidism, unspecified (3) Type 2 diabetes mellitus: Status: Acute Code(s): E11.9 - Type 2 diabetes mellitus without complications (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 Continue with same medications. 2. Waiting for placement. Reason for continued inpatient stay Substantial Risk for: inability to function, rapid decompensation and med/psych decompensation Time Spent With Patient Time: Total time managing care of this patient today __20__ minutes.
[2024-03-25] MEDS: metFORMIN HCl ER 500 MG TAB.ER.24H 1000 MG PO (16:40)
[2024-03-25 20:00] VITALS: BP 121/67; PULSE 81; RESP 16; TEMP 36.9; O2SAT 94
[2024-03-25] MEDS: Insulin Glargine,Hum.rec.anlog 100 UNIT/ML 10 ML VIAL 20 UNIT SUBCUT (20:19)
[2024-03-25] MEDS: lamoTRIgine 100 MG TABLET 150 MG PO (20:20)
[2024-03-25] MEDS: traZODone HCL 50 MG TABLET PO (22:46)
[2024-03-26] MEDS: Levothyroxine Sodium 150 MCG TABLET PO (05:52)
[2024-03-26 06:07] LABS: Glucose, Whole Blood 119 mg/dL (60-115)
[2024-03-26 06:07] LABS: Glucose, Whole Blood 61 mg/dL (60-115)
[2024-03-26 07:00] VITALS: BMI 31.8
[2024-03-26 08:00] VITALS: BP 120/69; PULSE 83; RESP 16; TEMP 36; O2SAT 96
[2024-03-26] MEDS: Sertraline HCL 50 MG TABLET PO (08:09)
[2024-03-26] MEDS: Memantine HCl 5 MG TABLET PO ×2 (08:09→20:12)
[2024-03-26 09:15] LABS: Creatinine Clr Calc Pharmacy 103.6; Estimated Glomerular Filt Rate > 60
--- NOTE | 2024-03-26 16:16 | HO.PSYCHPN ---
Subjective Subjective Date of Service: 03/26/24 Reason For Visit: crisis Subjective Notes: Conditional Voluntary Interim History: The nursing staff reported no changes in mental status On interview the patient reported he is doing fine. Mental Status Exam Mental Status Exam Patient Appearance: Well Grooomed and Appropriate Patient Orientation: Person and Situation Level of Consciousness: Awake and Appropriate Patient Behavior: Guarded and Passive Mood Description: Withdrawn Affect Description: Constricted Patient Cognition Impaired: Yes Ability to Follow Directions: Good Speech Pattern: Clear 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: None Delusions: Not Present Thought Process: Distracted and Slowed Thinking Thought Content: positive for [place] and positive for Poverty of Content Judgement: Fair Diagnostics Vital Signs (24Hr): Vital Signs - 24 hr 03/25/24 20:00 03/26/24 08:00 Temperature 98.4 F 96.8 F Pulse Rate 81 83 Respiratory Rate 16 16 Blood Pressure 121/67 120/69 Pulse Oximetry 94 96 Oxygen Delivery Method Room Air Room Air BMI result Body Mass Index 31.8 Labs 09/10/23 20:00 03/26/24 08:49 Labs: Laboratory Results - last 48 hr 03/25/24 03/26/24 03/26/24 06:11 05:48 05:50 Creatinine Estim Creat Clear Calc Estimated GFR POC Glucose 134 H 61 119 H 03/26/24 08:49 Creatinine 0.87 Estim Creat Clear Calc 103.6 Estimated GFR > 60 POC Glucose Imaging Radiology Impressions: ITS Impressions Brain MRI 09/19/23 20:33 IMPRESSION: 1. No demonstrated acute intracranial abnormalities. 2. Chronic mild to moderate nonspecific white matter changes, most notably in the deep white matter of the right frontal lobe. Mild to moderate generalized cerebral volume loss. Medications Medications Current Medications Acetaminophen (Acetaminophen 325 Mg Tablet) 650 mg PO Q6H PRN PRN Reason: Headache/Pain Mild Scale (1-3) Last Admin: 03/03/24 08:45 Dose: 650 mg Al Hydroxide/Mg Hydroxide (Magnesium Hydrox/Alum Hydrox 30 Ml Oral.Susp) 30 ml PO Q6H PRN PRN Reason: Heartburn/Nausea Last Admin: 11/27/23 10:48 Dose: 30 ml Aripiprazole (Aripiprazole Er 300 Mg Suser.Syr) 300 mg IM Q28D@0900 [facility] Last Admin: 03/04/24 09:30 Dose: 300 mg Benzocaine (Throat Lozenge, Medicated Lozenge) 1 lozenge MUCOUS MEM Q2H PRN PRN Reason: Sore Throat Last Admin: 12/30/23 20:59 Dose: 1 lozenge Benztropine Mesylate (Benztropine Mesylate 0.5 Mg Tablet) 0.5 mg PO TID PRN PRN Reason: Extrapyramidal Effects Glucose (Glucose Gel 15 Gm Gel..Gram.) 15 gm PO Q15M PRN; Protocol PRN Reason: per Hypoglycemia Standing Ord. Guaifenesin/Dextromethorphan (Guaifenesin Dm 100/10/5 Ml 5 Ml Syrup) 5 ml PO Q4H PRN PRN Reason: Cough Last Admin: 03/01/24 08:16 Dose: 5 ml Hydroxyzine HCl (Hydroxyzine Hcl 25 Mg Tablet) 25 mg PO Q6H PRN PRN Reason: Anxiety Last Admin: 03/25/24 22:46 Dose: 25 mg Insulin Glargine (Insulin Glargine,Hum.Rec.Anlog 100 Unit/Ml 10 Ml Vial) 20 unit SUBCUT BEDTIME [facility] Last Admin: 03/25/24 20:19 Dose: 20 unit Lamotrigine (Lamotrigine 100 Mg Tablet) 150 mg PO BEDTIME [facility] Last Admin: 03/25/24 20:20 Dose: 150 mg Levothyroxine Sodium (Levothyroxine Sodium 150 Mcg Tablet) 150 mcg PO DAILY@0630 [facility] Last Admin: 03/26/24 05:52 Dose: 150 mcg Magnesium Hydroxide (Milk Of Magnesia 30 Ml Oral.Susp) 30 ml PO DAILY PRN PRN Reason: Constipation Memantine (Memantine Hcl 5 Mg Tablet) 5 mg PO BID [facility] Last Admin: 03/26/24 08:09 Dose: 5 mg Metformin HCl (Metformin Hcl Er 500 Mg Tab.Er.24h) 1,000 mg PO DAILY@1700 [facility] Last Admin: 03/25/24 16:40 Dose: 1,000 mg Ondansetron HCl (Ondansetron Odt 8 Mg Tab.Rapdis) 8 mg TRANSLINGU Q8H PRN PRN Reason: Nausea and Vomiting Last Admin: 02/17/24 10:06 Dose: 8 mg Pseudoephedrine HCl (Pseudoephedrine Hcl 30 Mg Tablet) 30 mg PO Q4H PRN PRN Reason: Nasal Congestion Last Admin: 03/03/24 08:45 Dose: 30 mg Sertraline HCl (Sertraline Hcl 50 Mg Tablet) 50 mg PO DAILY [facility] Last Admin: 03/26/24 08:09 Dose: 50 mg Simethicone (Simethicone 80 Mg Tab.Chew) 80 mg PO QIDWMHS PRN PRN Reason: Gas Trazodone HCl (Trazodone Hcl 50 Mg Tablet) 50 mg PO BEDTIME MRX1 PRN PRN Reason: Insomnia Last Admin: 03/25/24 22:46 Dose: 50 mg Allergies Allergies Allergy/AdvReac Type Severity Reaction Status Date / Time amoxicillin [AMOXICILLIN] Allergy Mild VOMITING/ABD Verified 09/10/23 19:44 PAIN Assessment & Plan Assessment & Plan (1) Schizoaffective disorder: Status: Acute Code(s): F25.9 - Schizoaffective disorder, unspecified (2) Hypothyroidism: Status: Acute Code(s): E03.9 - Hypothyroidism, unspecified (3) Type 2 diabetes mellitus: Status: Acute Code(s): E11.9 - Type 2 diabetes mellitus without complications (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 Continue with same medications. 2. Waiting for placement. Reason for continued inpatient stay Substantial Risk for: inability to function, rapid decompensation and med/psych decompensation Time Spent With Patient Time: Total time managing care of this patient today __30__ minutes.
[2024-03-26] MEDS: metFORMIN HCl ER 500 MG TAB.ER.24H 1000 MG PO (17:20)
[2024-03-26 20:00] VITALS: BP 138/73; PULSE 77; RESP 16; TEMP 36.9; O2SAT 98
[2024-03-26] MEDS: lamoTRIgine 100 MG TABLET 150 MG PO (20:12)
[2024-03-26] MEDS: Insulin Glargine,Hum.rec.anlog 100 UNIT/ML 10 ML VIAL 20 UNIT SUBCUT (20:13)
[2024-03-26] MEDS: traZODone HCL 50 MG TABLET PO (20:22)
[2024-03-27] MEDS: Levothyroxine Sodium 150 MCG TABLET PO (06:09)
[2024-03-27 06:20] LABS: Glucose, Whole Blood 126 mg/dL (60-115)
[2024-03-27 08:00] VITALS: BP 120/69; PULSE 70; RESP 18; TEMP 36.1; O2SAT 98
[2024-03-27] MEDS: Sertraline HCL 50 MG TABLET PO (08:54)
[2024-03-27] MEDS: Memantine HCl 5 MG TABLET PO ×2 (08:54→21:04)
--- NOTE | 2024-03-27 09:41 | HO.PSYCHPN ---
Subjective Subjective Date of Service: 03/27/24 Reason For Visit: crisis Subjective Notes: Section 8 Interim History: Pt slept through the night. He is pleasant on approach. He denies any concerns. He is taking medications as prescribed. No intrusive behaviors. Review of Systems Review of Systems Unremarkable Yes all other systems are reviewed and are negative and unobtainable due to endotracheal tube Constitutional: Reports as per HPI Eyes: Reports as per HPI Reports as per HPI Cardiovascular: Reports as per HPI Respiratory: Reports as per HPI Gastrointestinal: Reports as per HPI Genitourinary: Reports as per HPI Musculoskeletal: Reports as per HPI Skin/Breast: Reports as per HPI Reports as per HPI Psychiatric: Reports as per HPI Endocrine: Reports as per HPI Hematologic/Lymphatic: Reports as per HPI Allergic/Immunologic: Reports as per HPI Mental Status Exam Mental Status Exam Patient Appearance: Well Grooomed and Appropriate Patient Orientation: Person and Situation Level of Consciousness: Awake and Appropriate Patient Behavior: Guarded and Passive Mood Description: Withdrawn Affect Description: Constricted Patient Cognition Impaired: Yes Ability to Follow Directions: Good Speech Pattern: Clear 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: Emergency Operator Impaired Diagnostics Vital Signs (24Hr): Vital Signs - 24 hr 03/26/24 20:00 Temperature 98.5 F Pulse Rate 77 Respiratory Rate 16 Blood Pressure 138/73 Pulse Oximetry 98 Oxygen Delivery Method Room Air BMI result Body Mass Index 31.8 Labs 09/10/23 20:00 03/26/24 08:49 Labs: Laboratory Results - last 48 hr 03/26/24 03/26/24 03/26/24 05:48 05:50 08:49 Creatinine 0.87 Estim Creat Clear Calc 103.6 Estimated GFR > 60 POC Glucose 61 119 H 03/27/24 06:15 Creatinine Estim Creat Clear Calc Estimated GFR POC Glucose 126 H Imaging Radiology Impressions: ITS Impressions Brain MRI 09/19/23 20:33 IMPRESSION: 1. No demonstrated acute intracranial abnormalities. 2. Chronic mild to moderate nonspecific white matter changes, most notably in the deep white matter of the right frontal lobe. Mild to moderate generalized cerebral volume loss. Medications Medications Current Medications Acetaminophen (Acetaminophen 325 Mg Tablet) 650 mg PO Q6H PRN PRN Reason: Headache/Pain Mild Scale (1-3) Last Admin: 03/03/24 08:45 Dose: 650 mg Al Hydroxide/Mg Hydroxide (Magnesium Hydrox/Alum Hydrox 30 Ml Oral.Susp) 30 ml PO Q6H PRN PRN Reason: Heartburn/Nausea Last Admin: 11/27/23 10:48 Dose: 30 ml Aripiprazole (Aripiprazole Er 300 Mg Suser.Syr) 300 mg IM Q28D@0900 [facility] Last Admin: 03/04/24 09:30 Dose: 300 mg Benzocaine (Throat Lozenge, Medicated Lozenge) 1 lozenge MUCOUS MEM Q2H PRN PRN Reason: Sore Throat Last Admin: 12/30/23 20:59 Dose: 1 lozenge Benztropine Mesylate (Benztropine Mesylate 0.5 Mg Tablet) 0.5 mg PO TID PRN PRN Reason: Extrapyramidal Effects Glucose (Glucose Gel 15 Gm Gel..Gram.) 15 gm PO Q15M PRN; Protocol PRN Reason: per Hypoglycemia Standing Ord. Guaifenesin/Dextromethorphan (Guaifenesin Dm 100/10/5 Ml 5 Ml Syrup) 5 ml PO Q4H PRN PRN Reason: Cough Last Admin: 03/01/24 08:16 Dose: 5 ml Hydroxyzine HCl (Hydroxyzine Hcl 25 Mg Tablet) 25 mg PO Q6H PRN PRN Reason: Anxiety Last Admin: 03/25/24 22:46 Dose: 25 mg Insulin Glargine (Insulin Glargine,Hum.Rec.Anlog 100 Unit/Ml 10 Ml Vial) 20 unit SUBCUT BEDTIME [facility] Last Admin: 03/26/24 20:13 Dose: 20 unit Lamotrigine (Lamotrigine 100 Mg Tablet) 150 mg PO BEDTIME [facility] Last Admin: 03/26/24 20:12 Dose: 150 mg Levothyroxine Sodium (Levothyroxine Sodium 150 Mcg Tablet) 150 mcg PO DAILY@0630 [facility] Last Admin: 03/27/24 06:09 Dose: 150 mcg Magnesium Hydroxide (Milk Of Magnesia 30 Ml Oral.Susp) 30 ml PO DAILY PRN PRN Reason: Constipation Memantine (Memantine Hcl 5 Mg Tablet) 5 mg PO BID [facility] Last Admin: 03/27/24 08:54 Dose: 5 mg Metformin HCl (Metformin Hcl Er 500 Mg Tab.Er.24h) 1,000 mg PO DAILY@1700 [facility] Last Admin: 03/26/24 17:20 Dose: 1,000 mg Ondansetron HCl (Ondansetron Odt 8 Mg Tab.Rapdis) 8 mg TRANSLINGU Q8H PRN PRN Reason: Nausea and Vomiting Last Admin: 02/17/24 10:06 Dose: 8 mg Pseudoephedrine HCl (Pseudoephedrine Hcl 30 Mg Tablet) 30 mg PO Q4H PRN PRN Reason: Nasal Congestion Last Admin: 03/03/24 08:45 Dose: 30 mg Sertraline HCl (Sertraline Hcl 50 Mg Tablet) 50 mg PO DAILY [facility] Last Admin: 03/27/24 08:54 Dose: 50 mg Simethicone (Simethicone 80 Mg Tab.Chew) 80 mg PO QIDWMHS PRN PRN Reason: Gas Trazodone HCl (Trazodone Hcl 50 Mg Tablet) 50 mg PO BEDTIME MRX1 PRN PRN Reason: Insomnia Last Admin: 03/26/24 20:22 Dose: 50 mg Allergies Allergies Allergy/AdvReac Type Severity Reaction Status Date / Time amoxicillin [AMOXICILLIN] Allergy Mild VOMITING/ABD Verified 09/10/23 19:44 PAIN Assessment & Plan Assessment & Plan (1) Schizoaffective disorder: Status: Acute Code(s): F25.9 - Schizoaffective disorder, unspecified (2) Hypothyroidism: Status: Acute Code(s): E03.9 - Hypothyroidism, unspecified (3) Type 2 diabetes mellitus: Status: Acute Code(s): E11.9 - Type 2 diabetes mellitus without complications (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 Continue with same medications. 2. Waiting for placement. Reason for continued inpatient stay Substantial Risk for: inability to function Time Spent With Patient Time: Total time managing care of this patient today ____ minutes.
[2024-03-27] MEDS: metFORMIN HCl ER 500 MG TAB.ER.24H 1000 MG PO (17:27)
[2024-03-27 20:00] VITALS: BP 129/60; PULSE 75; RESP 18; TEMP 36.7; O2SAT 95
[2024-03-27] MEDS: hydrOXYzine HCL 25 MG TABLET PO (21:04)
[2024-03-27] MEDS: lamoTRIgine 100 MG TABLET 150 MG PO (21:04)
[2024-03-27] MEDS: Insulin Glargine,Hum.rec.anlog 100 UNIT/ML 10 ML VIAL 20 UNIT SUBCUT (21:04)
[2024-03-27] MEDS: traZODone HCL 50 MG TABLET PO (21:04)
[2024-03-28] MEDS: Levothyroxine Sodium 150 MCG TABLET PO (06:16)
[2024-03-28 06:25] LABS: Glucose, Whole Blood 139 mg/dL (60-115)
[2024-03-28 08:00] VITALS: BP 129/78; PULSE 82; RESP 18; TEMP 36.8; O2SAT 95
[2024-03-28] MEDS: Memantine HCl 5 MG TABLET PO ×2 (08:35→20:34)
[2024-03-28] MEDS: Sertraline HCL 50 MG TABLET PO (08:35)
--- NOTE | 2024-03-28 10:34 | P.PNPSI_ITS ---
Subjective Subjective Date of Service: 03/28/24 Reason For Visit: crisis Interim History: He is pleasant on approach.No behavioral outbursts. Calm and coopedative. He denies any concerns. He is adherent to medications as prescribed. Denies SI. Review of Systems Review of Systems Unremarkable Yes all other systems are reviewed and are negative and unobtainable due to endotracheal tube Constitutional: Reports as per HPI Eyes: Reports as per HPI Reports as per HPI Cardiovascular: Reports as per HPI Respiratory: Reports as per HPI Gastrointestinal: Reports as per HPI Genitourinary: Reports as per HPI Musculoskeletal: Reports as per HPI Skin/Breast: Reports as per HPI Reports as per HPI Psychiatric: Reports as per HPI Endocrine: Reports as per HPI Hematologic/Lymphatic: Reports as per HPI Allergic/Immunologic: Reports as per HPI Mental Status Exam Mental Status Exam Narrative: Ante room. Mask. The patient is blunted with poverty of content. No overt suspiciousness. Denied hallucinations. Denied SI or HI. Difficulty with decision-making impaired insight judgment Patient Appearance: Well Grooomed and Appropriate Patient Orientation: Person and Situation Level of Consciousness: Awake and Appropriate Patient Behavior: Guarded and Passive Mood Description: Withdrawn Affect Description: Constricted Patient Cognition Impaired: Yes Ability to Follow Directions: Good Speech Pattern: Clear 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: Chcf Impaired Diagnostics Vital Signs (24Hr): Vital Signs - 24 hr 03/27/24 20:00 03/28/24 08:00 Temperature 98.0 F 98.3 F Pulse Rate 75 82 Respiratory Rate 18 18 Blood Pressure 129/60 129/78 Pulse Oximetry 95 95 Oxygen Delivery Method Room Air Room Air BMI result Body Mass Index 31.8 Labs 09/10/23 20:00 03/26/24 08:49 Labs: Laboratory Results - last 48 hr 03/27/24 03/28/24 06:15 06:19 POC Glucose 126 H 139 H Imaging Radiology Impressions: ITS Impressions Brain MRI 09/19/23 20:33 IMPRESSION: 1. No demonstrated acute intracranial abnormalities. 2. Chronic mild to moderate nonspecific white matter changes, most notably in the deep white matter of the right frontal lobe. Mild to moderate generalized cerebral volume loss. Medications Medications Current Medications Acetaminophen (Acetaminophen 325 Mg Tablet) 650 mg PO Q6H PRN PRN Reason: Headache/Pain Mild Scale (1-3) Last Admin: 03/03/24 08:45 Dose: 650 mg Al Hydroxide/Mg Hydroxide (Magnesium Hydrox/Alum Hydrox 30 Ml Oral.Susp) 30 ml PO Q6H PRN PRN Reason: Heartburn/Nausea Last Admin: 11/27/23 10:48 Dose: 30 ml Aripiprazole (Aripiprazole Er 300 Mg Suser.Syr) 300 mg IM Q28D@0900 [facility] Last Admin: 03/04/24 09:30 Dose: 300 mg Benzocaine (Throat Lozenge, Medicated Lozenge) 1 lozenge MUCOUS MEM Q2H PRN PRN Reason: Sore Throat Last Admin: 12/30/23 20:59 Dose: 1 lozenge Benztropine Mesylate (Benztropine Mesylate 0.5 Mg Tablet) 0.5 mg PO TID PRN PRN Reason: Extrapyramidal Effects Glucose (Glucose Gel 15 Gm Gel..Gram.) 15 gm PO Q15M PRN; Protocol PRN Reason: per Hypoglycemia Standing Ord. Guaifenesin/Dextromethorphan (Guaifenesin Dm 100/10/5 Ml 5 Ml Syrup) 5 ml PO Q4H PRN PRN Reason: Cough Last Admin: 03/01/24 08:16 Dose: 5 ml Hydroxyzine HCl (Hydroxyzine Hcl 25 Mg Tablet) 25 mg PO Q6H PRN PRN Reason: Anxiety Last Admin: 03/27/24 21:04 Dose: 25 mg Insulin Glargine (Insulin Glargine,Hum.Rec.Anlog 100 Unit/Ml 10 Ml Vial) 20 unit SUBCUT BEDTIME [facility] Last Admin: 03/27/24 21:04 Dose: 20 unit Lamotrigine (Lamotrigine 100 Mg Tablet) 150 mg PO BEDTIME [facility] Last Admin: 03/27/24 21:04 Dose: 150 mg Levothyroxine Sodium (Levothyroxine Sodium 150 Mcg Tablet) 150 mcg PO DAILY@0630 [facility] Last Admin: 03/28/24 06:16 Dose: 150 mcg Magnesium Hydroxide (Milk Of Magnesia 30 Ml Oral.Susp) 30 ml PO DAILY PRN PRN Reason: Constipation Memantine (Memantine Hcl 5 Mg Tablet) 5 mg PO BID [facility] Last Admin: 03/28/24 08:35 Dose: 5 mg Metformin HCl (Metformin Hcl Er 500 Mg Tab.Er.24h) 1,000 mg PO DAILY@1700 [facility] Last Admin: 03/27/24 17:27 Dose: 1,000 mg Ondansetron HCl (Ondansetron Odt 8 Mg Tab.Rapdis) 8 mg TRANSLINGU Q8H PRN PRN Reason: Nausea and Vomiting Last Admin: 02/17/24 10:06 Dose: 8 mg Pseudoephedrine HCl (Pseudoephedrine Hcl 30 Mg Tablet) 30 mg PO Q4H PRN PRN Reason: Nasal Congestion Last Admin: 03/03/24 08:45 Dose: 30 mg Sertraline HCl (Sertraline Hcl 50 Mg Tablet) 50 mg PO DAILY [facility] Last Admin: 03/28/24 08:35 Dose: 50 mg Simethicone (Simethicone 80 Mg Tab.Chew) 80 mg PO QIDWMHS PRN PRN Reason: Gas Trazodone HCl (Trazodone Hcl 50 Mg Tablet) 50 mg PO BEDTIME MRX1 PRN PRN Reason: Insomnia Last Admin: 03/27/24 21:04 Dose: 50 mg Allergies Allergies Allergy/AdvReac Type Severity Reaction Status Date / Time amoxicillin [AMOXICILLIN] Allergy Mild VOMITING/ABD Verified 09/10/23 19:44 PAIN Assessment & Plan Assessment & Plan (1) Schizoaffective disorder: Status: Acute Code(s): F25.9 - Schizoaffective disorder, unspecified (2) Hypothyroidism: Status: Acute Code(s): E03.9 - Hypothyroidism, unspecified (3) Type 2 diabetes mellitus: Status: Acute Code(s): E11.9 - Type 2 diabetes mellitus without complications (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 Continue with same medications. 2. Waiting for placement. 03/28: Continue current management and treatment plan. Reason for continued inpatient stay Substantial Risk for: harm to self, inability to function, rapid decompensation and med/psych decompensation Time Spent With Patient Time: Total time managing care of this patient today ____ minutes.
[2024-03-28] MEDS: metFORMIN HCl ER 500 MG TAB.ER.24H 1000 MG PO (16:04)
[2024-03-28 20:00] VITALS: BP 150/72; PULSE 74; TEMP 36.8; O2SAT 98
[2024-03-28] MEDS: lamoTRIgine 100 MG TABLET 150 MG PO (20:34)
[2024-03-28] MEDS: traZODone HCL 50 MG TABLET PO (20:35)
[2024-03-28] MEDS: Insulin Glargine,Hum.rec.anlog 100 UNIT/ML 10 ML VIAL 20 UNIT SUBCUT (20:35)
[2024-03-28] MEDS: hydrOXYzine HCL 25 MG TABLET PO (20:35)
[2024-03-29] MEDS: Levothyroxine Sodium 150 MCG TABLET PO (06:10)
[2024-03-29 06:56] LABS: Glucose, Whole Blood 119 mg/dL (60-115)
[2024-03-29 08:00] VITALS: BP 133/74; PULSE 77; RESP 18; TEMP 36.9; O2SAT 98
[2024-03-29] MEDS: Memantine HCl 5 MG TABLET PO ×2 (08:21→22:26)
[2024-03-29] MEDS: Sertraline HCL 50 MG TABLET PO (08:21)
--- NOTE | 2024-03-29 10:22 | P.PNPSI_ITS ---
Subjective Subjective Date of Service: 03/29/24 Reason For Visit: crisis Interim History: He is pleasant on approach.No behavioral outbursts. Calm and cooperative. He denies any concerns. He is adherent to medications as prescribed. Denies SI. Review of Systems Review of Systems Unremarkable Yes all other systems are reviewed and are negative and unobtainable due to endotracheal tube Constitutional: Reports as per HPI Eyes: Reports as per HPI Reports as per HPI Cardiovascular: Reports as per HPI Respiratory: Reports as per HPI Gastrointestinal: Reports as per HPI Genitourinary: Reports as per HPI Musculoskeletal: Reports as per HPI Skin/Breast: Reports as per HPI Reports as per HPI Psychiatric: Reports as per HPI Endocrine: Reports as per HPI Hematologic/Lymphatic: Reports as per HPI Allergic/Immunologic: Reports as per HPI Mental Status Exam Mental Status Exam Narrative: Ante room. Mask. The patient is blunted with poverty of content. No overt suspiciousness. Denied hallucinations. Denied SI or HI. Difficulty with decision-making impaired insight judgment Patient Appearance: Well Grooomed and Appropriate Patient Orientation: Person and Situation Level of Consciousness: Awake and Appropriate Patient Behavior: Guarded and Passive Mood Description: Withdrawn Affect Description: Constricted Patient Cognition Impaired: Yes Ability to Follow Directions: Good Speech Pattern: Clear 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: Mcfp Impaired Diagnostics Vital Signs (24Hr): Vital Signs - 24 hr 03/28/24 20:00 03/29/24 08:00 Temperature 98.2 F 98.4 F Pulse Rate 74 77 Respiratory Rate 18 Blood Pressure 150/72 H 133/74 Pulse Oximetry 98 98 Oxygen Delivery Method Room Air Room Air BMI result Body Mass Index 31.8 Labs 09/10/23 20:00 03/26/24 08:49 Labs: Laboratory Results - last 48 hr 03/28/24 03/29/24 06:19 06:15 POC Glucose 139 H 119 H Imaging Radiology Impressions: ITS Impressions Brain MRI 09/19/23 20:33 IMPRESSION: 1. No demonstrated acute intracranial abnormalities. 2. Chronic mild to moderate nonspecific white matter changes, most notably in the deep white matter of the right frontal lobe. Mild to moderate generalized cerebral volume loss. Medications Medications Current Medications Acetaminophen (Acetaminophen 325 Mg Tablet) 650 mg PO Q6H PRN PRN Reason: Headache/Pain Mild Scale (1-3) Last Admin: 03/03/24 08:45 Dose: 650 mg Al Hydroxide/Mg Hydroxide (Magnesium Hydrox/Alum Hydrox 30 Ml Oral.Susp) 30 ml PO Q6H PRN PRN Reason: Heartburn/Nausea Last Admin: 11/27/23 10:48 Dose: 30 ml Aripiprazole (Aripiprazole Er 300 Mg Suser.Syr) 300 mg IM Q28D@0900 [facility] Last Admin: 03/04/24 09:30 Dose: 300 mg Benzocaine (Throat Lozenge, Medicated Lozenge) 1 lozenge MUCOUS MEM Q2H PRN PRN Reason: Sore Throat Last Admin: 12/30/23 20:59 Dose: 1 lozenge Benztropine Mesylate (Benztropine Mesylate 0.5 Mg Tablet) 0.5 mg PO TID PRN PRN Reason: Extrapyramidal Effects Glucose (Glucose Gel 15 Gm Gel..Gram.) 15 gm PO Q15M PRN; Protocol PRN Reason: per Hypoglycemia Standing Ord. Guaifenesin/Dextromethorphan (Guaifenesin Dm 100/10/5 Ml 5 Ml Syrup) 5 ml PO Q4H PRN PRN Reason: Cough Last Admin: 03/01/24 08:16 Dose: 5 ml Hydroxyzine HCl (Hydroxyzine Hcl 25 Mg Tablet) 25 mg PO Q6H PRN PRN Reason: Anxiety Last Admin: 03/28/24 20:35 Dose: 25 mg Insulin Glargine (Insulin Glargine,Hum.Rec.Anlog 100 Unit/Ml 10 Ml Vial) 20 unit SUBCUT BEDTIME [facility] Last Admin: 03/28/24 20:35 Dose: 20 unit Lamotrigine (Lamotrigine 100 Mg Tablet) 150 mg PO BEDTIME [facility] Last Admin: 03/28/24 20:34 Dose: 150 mg Levothyroxine Sodium (Levothyroxine Sodium 150 Mcg Tablet) 150 mcg PO DAILY@0630 [facility] Last Admin: 03/29/24 06:10 Dose: 150 mcg Magnesium Hydroxide (Milk Of Magnesia 30 Ml Oral.Susp) 30 ml PO DAILY PRN PRN Reason: Constipation Memantine (Memantine Hcl 5 Mg Tablet) 5 mg PO BID [facility] Last Admin: 03/29/24 08:21 Dose: 5 mg Metformin HCl (Metformin Hcl Er 500 Mg Tab.Er.24h) 1,000 mg PO DAILY@1700 [facility] Last Admin: 03/28/24 16:04 Dose: 1,000 mg Ondansetron HCl (Ondansetron Odt 8 Mg Tab.Rapdis) 8 mg TRANSLINGU Q8H PRN PRN Reason: Nausea and Vomiting Last Admin: 02/17/24 10:06 Dose: 8 mg Pseudoephedrine HCl (Pseudoephedrine Hcl 30 Mg Tablet) 30 mg PO Q4H PRN PRN Reason: Nasal Congestion Last Admin: 03/03/24 08:45 Dose: 30 mg Sertraline HCl (Sertraline Hcl 50 Mg Tablet) 50 mg PO DAILY [facility] Last Admin: 03/29/24 08:21 Dose: 50 mg Simethicone (Simethicone 80 Mg Tab.Chew) 80 mg PO QIDWMHS PRN PRN Reason: Gas Trazodone HCl (Trazodone Hcl 50 Mg Tablet) 50 mg PO BEDTIME MRX1 PRN PRN Reason: Insomnia Last Admin: 03/28/24 20:35 Dose: 50 mg Allergies Allergies Allergy/AdvReac Type Severity Reaction Status Date / Time amoxicillin [AMOXICILLIN] Allergy Mild VOMITING/ABD Verified 09/10/23 19:44 PAIN Assessment & Plan Assessment & Plan (1) Schizoaffective disorder: Status: Acute Code(s): F25.9 - Schizoaffective disorder, unspecified (2) Hypothyroidism: Status: Acute Code(s): E03.9 - Hypothyroidism, unspecified (3) Type 2 diabetes mellitus: Status: Acute Code(s): E11.9 - Type 2 diabetes mellitus without complications (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 Continue with same medications. 2. Waiting for placement. 03/28: Continue current management and treatment plan. 03/29: Continue current management and treatment plan. Reason for continued inpatient stay Substantial Risk for: inability to function, rapid decompensation and med/psych decompensation Time Spent With Patient Time: Total time managing care of this patient today ____ minutes.
[2024-03-29] MEDS: metFORMIN HCl ER 500 MG TAB.ER.24H 1000 MG PO (16:00)
[2024-03-29 20:00] VITALS: BP 125/69; PULSE 79; TEMP 36.8; O2SAT 96
[2024-03-29] MEDS: traZODone HCL 50 MG TABLET PO (22:26)
[2024-03-29] MEDS: hydrOXYzine HCL 25 MG TABLET PO (22:26)
[2024-03-29] MEDS: lamoTRIgine 100 MG TABLET 150 MG PO (22:26)
[2024-03-29] MEDS: Insulin Glargine,Hum.rec.anlog 100 UNIT/ML 10 ML VIAL 20 UNIT SUBCUT (22:29)
[2024-03-30] MEDS: Levothyroxine Sodium 150 MCG TABLET PO (06:55)
[2024-03-30 07:03] LABS: Glucose, Whole Blood 130 mg/dL (60-115)
[2024-03-30 08:47] VITALS: BP 139/81; PULSE 78; RESP 16; TEMP 36.8; O2SAT 97
[2024-03-30] MEDS: Memantine HCl 5 MG TABLET PO ×2 (08:48→20:21)
[2024-03-30] MEDS: Sertraline HCL 50 MG TABLET PO (08:48)
--- NOTE | 2024-03-30 10:10 | HO.PSYCHPN ---
Subjective Subjective Date of Service: 03/30/24 Reason For Visit: crisis Subjective Notes: Conditional Voluntary Interim History: The nursing staff reported the patient had been compliant with treatment, no changes in his mental status. The social sciences instructor reported that he was already accepted at [facility] nursing [facility]. On interview the patient denies new symptoms, waiting for placement. Mental Status Exam Mental Status Exam Patient Appearance: Appropriate Patient Orientation: Person and Situation Level of Consciousness: Awake and Appropriate Patient Behavior: Guarded and Passive Mood Description: Withdrawn Affect Description: Constricted Patient Cognition Impaired: Yes Ability to Follow Directions: Good Speech Pattern: Clear 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: None Delusions: Ideas of Reference Thought Process: Distracted and Slowed Thinking Thought Content: positive for Marana and positive for Poverty of Content Judgement: Fair Diagnostics Vital Signs (24Hr): Vital Signs - 24 hr 03/29/24 20:00 03/30/24 08:47 Temperature 98.2 F 98.2 F Pulse Rate 79 78 Respiratory Rate 16 Blood Pressure 125/69 139/81 Pulse Oximetry 96 97 Oxygen Delivery Method Room Air Room Air BMI result Body Mass Index 31.8 Labs 09/10/23 20:00 03/26/24 08:49 Labs: Laboratory Results - last 48 hr 03/29/24 03/30/24 06:15 06:57 POC Glucose 119 H 130 H Imaging Radiology Impressions: ITS Impressions Brain MRI 09/19/23 20:33 IMPRESSION: 1. No demonstrated acute intracranial abnormalities. 2. Chronic mild to moderate nonspecific white matter changes, most notably in the deep white matter of the right frontal lobe. Mild to moderate generalized cerebral volume loss. Medications Medications Current Medications Acetaminophen (Acetaminophen 325 Mg Tablet) 650 mg PO Q6H PRN PRN Reason: Headache/Pain Mild Scale (1-3) Last Admin: 03/03/24 08:45 Dose: 650 mg Al Hydroxide/Mg Hydroxide (Magnesium Hydrox/Alum Hydrox 30 Ml Oral.Susp) 30 ml PO Q6H PRN PRN Reason: Heartburn/Nausea Last Admin: 11/27/23 10:48 Dose: 30 ml Aripiprazole (Aripiprazole Er 300 Mg Suser.Syr) 300 mg IM Q28D@0900 [facility] Last Admin: 03/04/24 09:30 Dose: 300 mg Benzocaine (Throat Lozenge, Medicated Lozenge) 1 lozenge MUCOUS MEM Q2H PRN PRN Reason: Sore Throat Last Admin: 12/30/23 20:59 Dose: 1 lozenge Benztropine Mesylate (Benztropine Mesylate 0.5 Mg Tablet) 0.5 mg PO TID PRN PRN Reason: Extrapyramidal Effects Glucose (Glucose Gel 15 Gm Gel..Gram.) 15 gm PO Q15M PRN; Protocol PRN Reason: per Hypoglycemia Standing Ord. Guaifenesin/Dextromethorphan (Guaifenesin Dm 100/10/5 Ml 5 Ml Syrup) 5 ml PO Q4H PRN PRN Reason: Cough Last Admin: 03/01/24 08:16 Dose: 5 ml Hydroxyzine HCl (Hydroxyzine Hcl 25 Mg Tablet) 25 mg PO Q6H PRN PRN Reason: Anxiety Last Admin: 03/29/24 22:26 Dose: 25 mg Insulin Glargine (Insulin Glargine,Hum.Rec.Anlog 100 Unit/Ml 10 Ml Vial) 20 unit SUBCUT BEDTIME [facility] Last Admin: 03/29/24 22:29 Dose: 20 unit Lamotrigine (Lamotrigine 100 Mg Tablet) 150 mg PO BEDTIME [facility] Last Admin: 03/29/24 22:26 Dose: 150 mg Levothyroxine Sodium (Levothyroxine Sodium 150 Mcg Tablet) 150 mcg PO DAILY@0630 [facility] Last Admin: 03/30/24 06:55 Dose: 150 mcg Magnesium Hydroxide (Milk Of Magnesia 30 Ml Oral.Susp) 30 ml PO DAILY PRN PRN Reason: Constipation Memantine (Memantine Hcl 5 Mg Tablet) 5 mg PO BID [facility] Last Admin: 03/30/24 08:48 Dose: 5 mg Metformin HCl (Metformin Hcl Er 500 Mg Tab.Er.24h) 1,000 mg PO DAILY@1700 [facility] Last Admin: 03/29/24 16:00 Dose: 1,000 mg Ondansetron HCl (Ondansetron Odt 8 Mg Tab.Rapdis) 8 mg TRANSLINGU Q8H PRN PRN Reason: Nausea and Vomiting Last Admin: 02/17/24 10:06 Dose: 8 mg Pseudoephedrine HCl (Pseudoephedrine Hcl 30 Mg Tablet) 30 mg PO Q4H PRN PRN Reason: Nasal Congestion Last Admin: 03/03/24 08:45 Dose: 30 mg Sertraline HCl (Sertraline Hcl 50 Mg Tablet) 50 mg PO DAILY [facility] Last Admin: 03/30/24 08:48 Dose: 50 mg Simethicone (Simethicone 80 Mg Tab.Chew) 80 mg PO QIDWMHS PRN PRN Reason: Gas Trazodone HCl (Trazodone Hcl 50 Mg Tablet) 50 mg PO BEDTIME MRX1 PRN PRN Reason: Insomnia Last Admin: 03/29/24 22:26 Dose: 50 mg Allergies Allergies Allergy/AdvReac Type Severity Reaction Status Date / Time amoxicillin [AMOXICILLIN] Allergy Mild VOMITING/ABD Verified 09/10/23 19:44 PAIN Assessment & Plan Assessment & Plan (1) Schizoaffective disorder: Status: Acute Code(s): F25.9 - Schizoaffective disorder, unspecified (2) Hypothyroidism: Status: Acute Code(s): E03.9 - Hypothyroidism, unspecified (3) Type 2 diabetes mellitus: Status: Acute Code(s): E11.9 - Type 2 diabetes mellitus without complications (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 Continue with same medications. 2. Waiting for placement. Reason for continued inpatient stay Substantial Risk for: inability to function, rapid decompensation and med/psych decompensation Time Spent With Patient Time: Total time managing care of this patient today __20__ minutes.
[2024-03-30] MEDS: metFORMIN HCl ER 500 MG TAB.ER.24H 1000 MG PO (16:16)
[2024-03-30 20:00] VITALS: BP 112/73; PULSE 76; RESP 18; TEMP 37; O2SAT 96
[2024-03-30] MEDS: Insulin Glargine,Hum.rec.anlog 100 UNIT/ML 10 ML VIAL 20 UNIT SUBCUT (20:20)
[2024-03-30] MEDS: lamoTRIgine 100 MG TABLET 150 MG PO (20:21)
[2024-03-30] MEDS: traZODone HCL 50 MG TABLET PO ×2 (20:22→22:06)
[2024-03-30] MEDS: hydrOXYzine HCL 25 MG TABLET PO (22:06)
[2024-03-31] MEDS: Levothyroxine Sodium 150 MCG TABLET PO (06:24)
[2024-03-31 06:34] LABS: Glucose, Whole Blood 121 mg/dL (60-115)
[2024-03-31 07:55] VITALS: BP 139/73; PULSE 70; RESP 18; TEMP 36.4; O2SAT 97
[2024-03-31] MEDS: Memantine HCl 5 MG TABLET PO ×2 (08:29→20:36)
[2024-03-31] MEDS: Sertraline HCL 50 MG TABLET PO (08:29)
--- NOTE | 2024-03-31 11:29 | HO.PSYCHPN ---
Subjective Subjective Date of Service: 03/31/24 Reason For Visit: crisis Subjective Notes: Conditional Voluntary Interim History: The nursing staff reported the patient had been compliant with treatment, no changes in his mental status. On interview the patient denies new symptoms, waiting for placement. Mental Status Exam Mental Status Exam Patient Appearance: Appropriate Patient Orientation: Person and Situation Level of Consciousness: Awake and Appropriate Patient Behavior: Guarded and Passive Mood Description: Withdrawn Affect Description: Constricted Patient Cognition Impaired: Yes Ability to Follow Directions: Good Speech Pattern: Clear 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: None Delusions: Paranoid Ideation and Ideas of Reference Thought Process: Distracted and Slowed Thinking Thought Content: positive for [place] and positive for Poverty of Content Judgement: Fair Diagnostics Vital Signs (24Hr): Vital Signs - 24 hr 03/30/24 20:00 03/31/24 07:55 Temperature 98.6 F 97.6 F Pulse Rate 76 70 Respiratory Rate 18 18 Blood Pressure 112/73 139/73 Pulse Oximetry 96 97 Oxygen Delivery Method Room Air Room Air BMI result Body Mass Index 31.8 Labs 09/10/23 20:00 03/26/24 08:49 Labs: Laboratory Results - last 48 hr 03/30/24 03/31/24 06:57 06:26 POC Glucose 130 H 121 H Imaging Radiology Impressions: ITS Impressions Brain MRI 09/19/23 20:33 IMPRESSION: 1. No demonstrated acute intracranial abnormalities. 2. Chronic mild to moderate nonspecific white matter changes, most notably in the deep white matter of the right frontal lobe. Mild to moderate generalized cerebral volume loss. Medications Medications Current Medications Acetaminophen (Acetaminophen 325 Mg Tablet) 650 mg PO Q6H PRN PRN Reason: Headache/Pain Mild Scale (1-3) Last Admin: 03/03/24 08:45 Dose: 650 mg Al Hydroxide/Mg Hydroxide (Magnesium Hydrox/Alum Hydrox 30 Ml Oral.Susp) 30 ml PO Q6H PRN PRN Reason: Heartburn/Nausea Last Admin: 11/27/23 10:48 Dose: 30 ml Aripiprazole (Aripiprazole Er 300 Mg Suser.Syr) 300 mg IM Q28D@0900 [facility] Last Admin: 03/04/24 09:30 Dose: 300 mg Benzocaine (Throat Lozenge, Medicated Lozenge) 1 lozenge MUCOUS MEM Q2H PRN PRN Reason: Sore Throat Last Admin: 12/30/23 20:59 Dose: 1 lozenge Benztropine Mesylate (Benztropine Mesylate 0.5 Mg Tablet) 0.5 mg PO TID PRN PRN Reason: Extrapyramidal Effects Glucose (Glucose Gel 15 Gm Gel..Gram.) 15 gm PO Q15M PRN; Protocol PRN Reason: per Hypoglycemia Standing Ord. Guaifenesin/Dextromethorphan (Guaifenesin Dm 100/10/5 Ml 5 Ml Syrup) 5 ml PO Q4H PRN PRN Reason: Cough Last Admin: 03/01/24 08:16 Dose: 5 ml Hydroxyzine HCl (Hydroxyzine Hcl 25 Mg Tablet) 25 mg PO Q6H PRN PRN Reason: Anxiety Last Admin: 03/30/24 22:06 Dose: 25 mg Insulin Glargine (Insulin Glargine,Hum.Rec.Anlog 100 Unit/Ml 10 Ml Vial) 20 unit SUBCUT BEDTIME [facility] Last Admin: 03/30/24 20:20 Dose: 20 unit Lamotrigine (Lamotrigine 100 Mg Tablet) 150 mg PO BEDTIME [facility] Last Admin: 03/30/24 20:21 Dose: 150 mg Levothyroxine Sodium (Levothyroxine Sodium 150 Mcg Tablet) 150 mcg PO DAILY@0630 [facility] Last Admin: 03/31/24 06:24 Dose: 150 mcg Magnesium Hydroxide (Milk Of Magnesia 30 Ml Oral.Susp) 30 ml PO DAILY PRN PRN Reason: Constipation Memantine (Memantine Hcl 5 Mg Tablet) 5 mg PO BID [facility] Last Admin: 03/31/24 08:29 Dose: 5 mg Metformin HCl (Metformin Hcl Er 500 Mg Tab.Er.24h) 1,000 mg PO DAILY@1700 [facility] Last Admin: 03/30/24 16:16 Dose: 1,000 mg Ondansetron HCl (Ondansetron Odt 8 Mg Tab.Rapdis) 8 mg TRANSLINGU Q8H PRN PRN Reason: Nausea and Vomiting Last Admin: 02/17/24 10:06 Dose: 8 mg Pseudoephedrine HCl (Pseudoephedrine Hcl 30 Mg Tablet) 30 mg PO Q4H PRN PRN Reason: Nasal Congestion Last Admin: 03/03/24 08:45 Dose: 30 mg Sertraline HCl (Sertraline Hcl 50 Mg Tablet) 50 mg PO DAILY [facility] Last Admin: 03/31/24 08:29 Dose: 50 mg Simethicone (Simethicone 80 Mg Tab.Chew) 80 mg PO QIDWMHS PRN PRN Reason: Gas Trazodone HCl (Trazodone Hcl 50 Mg Tablet) 50 mg PO BEDTIME MRX1 PRN PRN Reason: Insomnia Last Admin: 03/30/24 22:06 Dose: 50 mg Allergies Allergies Allergy/AdvReac Type Severity Reaction Status Date / Time amoxicillin [AMOXICILLIN] Allergy Mild VOMITING/ABD Verified 09/10/23 19:44 PAIN Assessment & Plan Assessment & Plan (1) Schizoaffective disorder: Status: Acute Code(s): F25.9 - Schizoaffective disorder, unspecified (2) Hypothyroidism: Status: Acute Code(s): E03.9 - Hypothyroidism, unspecified (3) Type 2 diabetes mellitus: Status: Acute Code(s): E11.9 - Type 2 diabetes mellitus without complications (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 Continue with same medications. 2. Waiting for placement. Reason for continued inpatient stay Substantial Risk for: inability to function, rapid decompensation and med/psych decompensation Time Spent With Patient Time: Total time managing care of this patient today __20__ minutes.
[2024-03-31] MEDS: metFORMIN HCl ER 500 MG TAB.ER.24H 1000 MG PO (16:25)
[2024-03-31 20:00] VITALS: BP 116/61; PULSE 80; RESP 16; TEMP 36.8; O2SAT 96
[2024-03-31] MEDS: traZODone HCL 50 MG TABLET PO (20:35)
[2024-03-31] MEDS: lamoTRIgine 100 MG TABLET 150 MG PO (20:35)
[2024-03-31] MEDS: hydrOXYzine HCL 25 MG TABLET PO (20:36)
[2024-03-31] MEDS: Insulin Glargine,Hum.rec.anlog 100 UNIT/ML 10 ML VIAL 20 UNIT SUBCUT (20:36)
[2024-04-01] MEDS: Levothyroxine Sodium 150 MCG TABLET PO (06:15)
[2024-04-01 06:22] LABS: Glucose, Whole Blood 110 mg/dL (60-115)
[2024-04-01] MEDS: Sertraline HCL 50 MG TABLET PO (08:19)
[2024-04-01] MEDS: hydrOXYzine HCL 25 MG TABLET PO (08:19)
[2024-04-01] MEDS: Memantine HCl 5 MG TABLET PO ×2 (08:19→19:35)
[2024-04-01 08:30] VITALS: BP 135/75; PULSE 72; RESP 18; TEMP 36.8; O2SAT 99
[2024-04-01] MEDS: ARIPIPRAZOLE 300 MG IM (12:16)
--- NOTE | 2024-04-01 15:31 | HO.PSYCHPN ---
Subjective Subjective Date of Service: 04/01/24 Reason For Visit: crisis Subjective Notes: Conditional Voluntary Interim History: The nursing staff reported no changes in her mental status cooperative pleasant, compliant with treatment. On interview the patient denies new symptoms seen in the group area. Waiting for placement. Mental Status Exam Mental Status Exam Patient Appearance: Appropriate Patient Orientation: Person and Situation Level of Consciousness: Alert Patient Behavior: Appropriate and Cooperative Mood Description: Calm Affect Description: Constricted Patient Cognition Impaired: Yes Ability to Follow Directions: Good Speech Pattern: Clear 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: None Delusions: Not Present Thought Process: Distracted and Slowed Thinking Thought Content: positive for [place] and positive for Poverty of Content Judgement: Fair Diagnostics Vital Signs (24Hr): Vital Signs - 24 hr 03/31/24 20:00 04/01/24 08:30 Temperature 98.2 F 98.2 F Pulse Rate 80 72 Respiratory Rate 16 18 Blood Pressure 116/61 135/75 Pulse Oximetry 96 99 Oxygen Delivery Method Room Air Room Air BMI result Body Mass Index 31.8 Labs 09/10/23 20:00 03/26/24 08:49 Labs: Laboratory Results - last 48 hr 03/31/24 04/01/24 06:26 06:14 POC Glucose 121 H 110 Imaging Radiology Impressions: ITS Impressions Brain MRI 09/19/23 20:33 IMPRESSION: 1. No demonstrated acute intracranial abnormalities. 2. Chronic mild to moderate nonspecific white matter changes, most notably in the deep white matter of the right frontal lobe. Mild to moderate generalized cerebral volume loss. Medications Medications Current Medications Acetaminophen (Acetaminophen 325 Mg Tablet) 650 mg PO Q6H PRN PRN Reason: Headache/Pain Mild Scale (1-3) Last Admin: 03/03/24 08:45 Dose: 650 mg Al Hydroxide/Mg Hydroxide (Magnesium Hydrox/Alum Hydrox 30 Ml Oral.Susp) 30 ml PO Q6H PRN PRN Reason: Heartburn/Nausea Last Admin: 11/27/23 10:48 Dose: 30 ml Aripiprazole (Aripiprazole Er 300 Mg Suser.Syr) 300 mg IM Q28D@0900 [facility] Last Admin: 04/01/24 12:16 Dose: 300 mg Benzocaine (Throat Lozenge, Medicated Lozenge) 1 lozenge MUCOUS MEM Q2H PRN PRN Reason: Sore Throat Last Admin: 12/30/23 20:59 Dose: 1 lozenge Benztropine Mesylate (Benztropine Mesylate 0.5 Mg Tablet) 0.5 mg PO TID PRN PRN Reason: Extrapyramidal Effects Glucose (Glucose Gel 15 Gm Gel..Gram.) 15 gm PO Q15M PRN; Protocol PRN Reason: per Hypoglycemia Standing Ord. Guaifenesin/Dextromethorphan (Guaifenesin Dm 100/10/5 Ml 5 Ml Syrup) 5 ml PO Q4H PRN PRN Reason: Cough Last Admin: 03/01/24 08:16 Dose: 5 ml Hydroxyzine HCl (Hydroxyzine Hcl 25 Mg Tablet) 25 mg PO Q6H PRN PRN Reason: Anxiety Last Admin: 04/01/24 08:19 Dose: 25 mg Insulin Glargine (Insulin Glargine,Hum.Rec.Anlog 100 Unit/Ml 10 Ml Vial) 20 unit SUBCUT BEDTIME [facility] Last Admin: 03/31/24 20:36 Dose: 20 unit Lamotrigine (Lamotrigine 100 Mg Tablet) 150 mg PO BEDTIME [facility] Last Admin: 03/31/24 20:35 Dose: 150 mg Levothyroxine Sodium (Levothyroxine Sodium 150 Mcg Tablet) 150 mcg PO DAILY@0630 [facility] Last Admin: 04/01/24 06:15 Dose: 150 mcg Magnesium Hydroxide (Milk Of Magnesia 30 Ml Oral.Susp) 30 ml PO DAILY PRN PRN Reason: Constipation Memantine (Memantine Hcl 5 Mg Tablet) 5 mg PO BID [facility] Last Admin: 04/01/24 08:19 Dose: 5 mg Metformin HCl (Metformin Hcl Er 500 Mg Tab.Er.24h) 1,000 mg PO DAILY@1700 [facility] Last Admin: 03/31/24 16:25 Dose: 1,000 mg Ondansetron HCl (Ondansetron Odt 8 Mg Tab.Rapdis) 8 mg TRANSLINGU Q8H PRN PRN Reason: Nausea and Vomiting Last Admin: 02/17/24 10:06 Dose: 8 mg Pseudoephedrine HCl (Pseudoephedrine Hcl 30 Mg Tablet) 30 mg PO Q4H PRN PRN Reason: Nasal Congestion Last Admin: 03/03/24 08:45 Dose: 30 mg Sertraline HCl (Sertraline Hcl 50 Mg Tablet) 50 mg PO DAILY [facility] Last Admin: 04/01/24 08:19 Dose: 50 mg Simethicone (Simethicone 80 Mg Tab.Chew) 80 mg PO QIDWMHS PRN PRN Reason: Gas Trazodone HCl (Trazodone Hcl 50 Mg Tablet) 50 mg PO BEDTIME MRX1 PRN PRN Reason: Insomnia Last Admin: 03/31/24 20:35 Dose: 50 mg Allergies Allergies Allergy/AdvReac Type Severity Reaction Status Date / Time amoxicillin [AMOXICILLIN] Allergy Mild VOMITING/ABD Verified 09/10/23 19:44 PAIN Assessment & Plan Assessment & Plan (1) Schizoaffective disorder: Status: Acute Code(s): F25.9 - Schizoaffective disorder, unspecified (2) Hypothyroidism: Status: Acute Code(s): E03.9 - Hypothyroidism, unspecified (3) Type 2 diabetes mellitus: Status: Acute Code(s): E11.9 - Type 2 diabetes mellitus without complications (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 Continue with same medications. 2. Waiting for placement. Reason for continued inpatient stay Substantial Risk for: inability to function, rapid decompensation and med/psych decompensation Time Spent With Patient Time: Total time managing care of this patient today _20___ minutes.
[2024-04-01] MEDS: metFORMIN HCl ER 500 MG TAB.ER.24H 1000 MG PO (16:30)
[2024-04-01 19:33] VITALS: BP 125/64; PULSE 77; RESP 16; TEMP 36.8; O2SAT 98
[2024-04-01] MEDS: lamoTRIgine 100 MG TABLET 150 MG PO (19:35)
[2024-04-01] MEDS: Insulin Glargine,Hum.rec.anlog 100 UNIT/ML 10 ML VIAL 20 UNIT SUBCUT (19:36)
[2024-04-02] MEDS: Levothyroxine Sodium 150 MCG TABLET PO (05:34)
[2024-04-02 05:42] LABS: Glucose, Whole Blood 83 mg/dL (60-115)
[2024-04-02 08:08] VITALS: BP 148/75; PULSE 76; RESP 18; TEMP 35.9; O2SAT 98
[2024-04-02 08:35] LABS: Creatinine Clr Calc Pharmacy 118.2; Estimated Glomerular Filt Rate > 60
[2024-04-02] MEDS: Sertraline HCL 50 MG TABLET PO (08:35)
[2024-04-02] MEDS: Memantine HCl 5 MG TABLET PO ×2 (08:35→19:45)
[2024-04-02 10:27] VITALS: BMI 31.4
--- NOTE | 2024-04-02 16:24 | HO.PSYCHPN ---
Subjective Subjective Date of Service: 04/02/24 Reason For Visit: crisis Subjective Notes: Conditional Voluntary Interim History: The nursing staff reported no changes in his mental status compliant with treatment. Mental Status Exam Mental Status Exam Patient Appearance: Appropriate Patient Orientation: Person and Situation Level of Consciousness: Awake and Appropriate Patient Behavior: Guarded and Passive Mood Description: Withdrawn Affect Description: Constricted Patient Cognition Impaired: Yes Ability to Follow Directions: Good Speech Pattern: Clear 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: None Delusions: Not Present Thought Process: Distracted and Slowed Thinking Thought Content: positive for [place] and positive for Poverty of Content Judgement: Poor Diagnostics Vital Signs (24Hr): Vital Signs - 24 hr 04/01/24 19:33 04/02/24 08:08 Temperature 98.3 F 96.6 F L Pulse Rate 77 76 Respiratory Rate 16 18 Blood Pressure 125/64 148/75 H Pulse Oximetry 98 98 Oxygen Delivery Method Room Air Room Air BMI result Body Mass Index 31.4 Labs 09/10/23 20:00 04/02/24 08:09 Labs: Laboratory Results - last 48 hr 04/01/24 04/02/24 04/02/24 06:14 05:36 08:09 Creatinine 0.77 Estim Creat Clear Calc 118.2 Estimated GFR > 60 POC Glucose 110 83 Imaging Radiology Impressions: ITS Impressions Brain MRI 09/19/23 20:33 IMPRESSION: 1. No demonstrated acute intracranial abnormalities. 2. Chronic mild to moderate nonspecific white matter changes, most notably in the deep white matter of the right frontal lobe. Mild to moderate generalized cerebral volume loss. Chest X-Ray 04/02/24 14:30 IMPRESSION: Moderate biapical pleural thickening. The lungs are clear. Electronically signed by: Matias Cormier MD 04/02/2024 03:12 [place] [facility] [place] Medications Current Medications Acetaminophen (Acetaminophen 325 Mg Tablet) 650 mg PO Q6H PRN PRN Reason: Headache/Pain Mild Scale (1-3) Last Admin: 03/03/24 08:45 Dose: 650 mg Al Hydroxide/Mg Hydroxide (Magnesium Hydrox/Alum Hydrox 30 Ml Oral.Susp) 30 ml PO Q6H PRN PRN Reason: Heartburn/Nausea Last Admin: 11/27/23 10:48 Dose: 30 ml Aripiprazole (Aripiprazole Er 300 Mg Suser.Syr) 300 mg IM Q28D@0900 [facility] Last Admin: 04/01/24 12:16 Dose: 300 mg Benzocaine (Throat Lozenge, Medicated Lozenge) 1 lozenge MUCOUS MEM Q2H PRN PRN Reason: Sore Throat Last Admin: 12/30/23 20:59 Dose: 1 lozenge Benztropine Mesylate (Benztropine Mesylate 0.5 Mg Tablet) 0.5 mg PO TID PRN PRN Reason: Extrapyramidal Effects Glucose (Glucose Gel 15 Gm Gel..Gram.) 15 gm PO Q15M PRN; Protocol PRN Reason: per Hypoglycemia Standing Ord. Guaifenesin/Dextromethorphan (Guaifenesin Dm 100/10/5 Ml 5 Ml Syrup) 5 ml PO Q4H PRN PRN Reason: Cough Last Admin: 03/01/24 08:16 Dose: 5 ml Hydroxyzine HCl (Hydroxyzine Hcl 25 Mg Tablet) 25 mg PO Q6H PRN PRN Reason: Anxiety Last Admin: 04/01/24 08:19 Dose: 25 mg Insulin Glargine (Insulin Glargine,Hum.Rec.Anlog 100 Unit/Ml 10 Ml Vial) 20 unit SUBCUT BEDTIME [facility] Last Admin: 04/01/24 19:36 Dose: 20 unit Lamotrigine (Lamotrigine 100 Mg Tablet) 150 mg PO BEDTIME [facility] Last Admin: 04/01/24 19:35 Dose: 150 mg Levothyroxine Sodium (Levothyroxine Sodium 150 Mcg Tablet) 150 mcg PO DAILY@0630 [facility] Last Admin: 04/02/24 05:34 Dose: 150 mcg Magnesium Hydroxide (Milk Of Magnesia 30 Ml Oral.Susp) 30 ml PO DAILY PRN PRN Reason: Constipation Memantine (Memantine Hcl 5 Mg Tablet) 5 mg PO BID [facility] Last Admin: 04/02/24 08:35 Dose: 5 mg Metformin HCl (Metformin Hcl Er 500 Mg Tab.Er.24h) 1,000 mg PO DAILY@1700 [facility] Last Admin: 04/01/24 16:30 Dose: 1,000 mg Ondansetron HCl (Ondansetron Odt 8 Mg Tab.Rapdis) 8 mg TRANSLINGU Q8H PRN PRN Reason: Nausea and Vomiting Last Admin: 02/17/24 10:06 Dose: 8 mg Pseudoephedrine HCl (Pseudoephedrine Hcl 30 Mg Tablet) 30 mg PO Q4H PRN PRN Reason: Nasal Congestion Last Admin: 03/03/24 08:45 Dose: 30 mg Sertraline HCl (Sertraline Hcl 50 Mg Tablet) 50 mg PO DAILY [facility] Last Admin: 04/02/24 08:35 Dose: 50 mg Simethicone (Simethicone 80 Mg Tab.Chew) 80 mg PO QIDWMHS PRN PRN Reason: Gas Trazodone HCl (Trazodone Hcl 50 Mg Tablet) 50 mg PO BEDTIME MRX1 PRN PRN Reason: Insomnia Last Admin: 03/31/24 20:35 Dose: 50 mg Allergies Allergies Allergy/AdvReac Type Severity Reaction Status Date / Time amoxicillin [AMOXICILLIN] Allergy Mild VOMITING/ABD Verified 09/10/23 19:44 PAIN Assessment & Plan Assessment & Plan (1) Schizoaffective disorder: Status: Acute Code(s): F25.9 - Schizoaffective disorder, unspecified (2) Hypothyroidism: Status: Acute Code(s): E03.9 - Hypothyroidism, unspecified (3) Type 2 diabetes mellitus: Status: Acute Code(s): E11.9 - Type 2 diabetes mellitus without complications (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 Continue with same medications. 2. Waiting for placement. Reason for continued inpatient stay Substantial Risk for: inability to function, rapid decompensation and med/psych decompensation Time Spent With Patient Time: Total time managing care of this patient today __20__ minutes.
[2024-04-02] MEDS: metFORMIN HCl ER 500 MG TAB.ER.24H 1000 MG PO (16:33)
[2024-04-02] MEDS: lamoTRIgine 100 MG TABLET 150 MG PO (19:45)
[2024-04-02] MEDS: Insulin Glargine,Hum.rec.anlog 100 UNIT/ML 10 ML VIAL 20 UNIT SUBCUT (19:45)
[2024-04-02 19:47] VITALS: BP 125/61; PULSE 81; RESP 16; TEMP 36.9; O2SAT 97
[2024-04-02] MEDS: traZODone HCL 50 MG TABLET PO (23:56)
[2024-04-03] MEDS: Levothyroxine Sodium 150 MCG TABLET PO (05:52)
[2024-04-03 06:36] LABS: Glucose, Whole Blood 120 mg/dL (60-115)
[2024-04-03 08:21] VITALS: BP 137/84; PULSE 86; RESP 16; TEMP 36.8; O2SAT 98
[2024-04-03] MEDS: Sertraline HCL 50 MG TABLET PO (08:23)
[2024-04-03] MEDS: Memantine HCl 5 MG TABLET PO ×2 (08:23→20:48)
--- NOTE | 2024-04-03 14:10 | HO.PSYCHPN ---
Subjective Subjective Date of Service: 04/03/24 Reason For Visit: crisis Subjective Notes: Conditional Voluntary Interim History: The nursing staff reported no changes in her mental status cooperative pleasant. On interview the patient denies new symptoms waiting for placement. Mental Status Exam Mental Status Exam Patient Appearance: Appropriate Patient Orientation: Person Level of Consciousness: Awake Patient Behavior: Guarded and Passive Mood Description: Withdrawn Affect Description: Constricted Patient Cognition Impaired: Yes Ability to Follow Directions: Good Speech Pattern: Clear 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: None Delusions: Ideas of Reference Thought Process: Distracted Thought Content: positive for [place] and positive for Poverty of Content Judgement: Fair Diagnostics Vital Signs (24Hr): Vital Signs - 24 hr 04/02/24 19:47 04/03/24 08:21 Temperature 98.5 F 98.2 F Pulse Rate 81 86 Respiratory Rate 16 16 Blood Pressure 125/61 137/84 Pulse Oximetry 97 98 Oxygen Delivery Method Room Air Room Air BMI result Body Mass Index 31.4 Labs 09/10/23 20:00 04/02/24 08:09 Labs: Laboratory Results - last 48 hr 04/02/24 04/02/24 04/03/24 05:36 08:09 05:52 Creatinine 0.77 Estim Creat Clear Calc 118.2 Estimated GFR > 60 POC Glucose 83 120 H Imaging Radiology Impressions: ITS Impressions Brain MRI 09/19/23 20:33 IMPRESSION: 1. No demonstrated acute intracranial abnormalities. 2. Chronic mild to moderate nonspecific white matter changes, most notably in the deep white matter of the right frontal lobe. Mild to moderate generalized cerebral volume loss. Chest X-Ray 04/02/24 14:30 IMPRESSION: Moderate biapical pleural thickening. The lungs are clear. Electronically signed by: Matias Cormier MD 04/02/2024 03:12 [place] [facility] [place] Medications Current Medications Acetaminophen (Acetaminophen 325 Mg Tablet) 650 mg PO Q6H PRN PRN Reason: Headache/Pain Mild Scale (1-3) Last Admin: 03/03/24 08:45 Dose: 650 mg Al Hydroxide/Mg Hydroxide (Magnesium Hydrox/Alum Hydrox 30 Ml Oral.Susp) 30 ml PO Q6H PRN PRN Reason: Heartburn/Nausea Last Admin: 11/27/23 10:48 Dose: 30 ml Aripiprazole (Aripiprazole Er 300 Mg Suser.Syr) 300 mg IM Q28D@0900 [facility] Last Admin: 04/01/24 12:16 Dose: 300 mg Benzocaine (Throat Lozenge, Medicated Lozenge) 1 lozenge MUCOUS MEM Q2H PRN PRN Reason: Sore Throat Last Admin: 12/30/23 20:59 Dose: 1 lozenge Benztropine Mesylate (Benztropine Mesylate 0.5 Mg Tablet) 0.5 mg PO TID PRN PRN Reason: Extrapyramidal Effects Glucose (Glucose Gel 15 Gm Gel..Gram.) 15 gm PO Q15M PRN; Protocol PRN Reason: per Hypoglycemia Standing Ord. Guaifenesin/Dextromethorphan (Guaifenesin Dm 100/10/5 Ml 5 Ml Syrup) 5 ml PO Q4H PRN PRN Reason: Cough Last Admin: 03/01/24 08:16 Dose: 5 ml Hydroxyzine HCl (Hydroxyzine Hcl 25 Mg Tablet) 25 mg PO Q6H PRN PRN Reason: Anxiety Last Admin: 04/01/24 08:19 Dose: 25 mg Insulin Glargine (Insulin Glargine,Hum.Rec.Anlog 100 Unit/Ml 10 Ml Vial) 20 unit SUBCUT BEDTIME [facility] Last Admin: 04/02/24 19:45 Dose: 20 unit Lamotrigine (Lamotrigine 100 Mg Tablet) 150 mg PO BEDTIME [facility] Last Admin: 04/02/24 19:45 Dose: 150 mg Levothyroxine Sodium (Levothyroxine Sodium 150 Mcg Tablet) 150 mcg PO DAILY@0630 [facility] Last Admin: 04/03/24 05:52 Dose: 150 mcg Magnesium Hydroxide (Milk Of Magnesia 30 Ml Oral.Susp) 30 ml PO DAILY PRN PRN Reason: Constipation Memantine (Memantine Hcl 5 Mg Tablet) 5 mg PO BID [facility] Last Admin: 04/03/24 08:23 Dose: 5 mg Metformin HCl (Metformin Hcl Er 500 Mg Tab.Er.24h) 1,000 mg PO DAILY@1700 [facility] Last Admin: 04/02/24 16:33 Dose: 1,000 mg Ondansetron HCl (Ondansetron Odt 8 Mg Tab.Rapdis) 8 mg TRANSLINGU Q8H PRN PRN Reason: Nausea and Vomiting Last Admin: 02/17/24 10:06 Dose: 8 mg Pseudoephedrine HCl (Pseudoephedrine Hcl 30 Mg Tablet) 30 mg PO Q4H PRN PRN Reason: Nasal Congestion Last Admin: 03/03/24 08:45 Dose: 30 mg Sertraline HCl (Sertraline Hcl 50 Mg Tablet) 50 mg PO DAILY [facility] Last Admin: 04/03/24 08:23 Dose: 50 mg Simethicone (Simethicone 80 Mg Tab.Chew) 80 mg PO QIDWMHS PRN PRN Reason: Gas Trazodone HCl (Trazodone Hcl 50 Mg Tablet) 50 mg PO BEDTIME MRX1 PRN PRN Reason: Insomnia Last Admin: 04/02/24 23:56 Dose: 50 mg Allergies Allergies Allergy/AdvReac Type Severity Reaction Status Date / Time amoxicillin [AMOXICILLIN] Allergy Mild VOMITING/ABD Verified 09/10/23 19:44 PAIN Assessment & Plan Assessment & Plan (1) Schizoaffective disorder: Status: Acute Code(s): F25.9 - Schizoaffective disorder, unspecified (2) Hypothyroidism: Status: Acute Code(s): E03.9 - Hypothyroidism, unspecified (3) Type 2 diabetes mellitus: Status: Acute Code(s): E11.9 - Type 2 diabetes mellitus without complications (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 Continue with same medications. 2. Waiting for placement. Reason for continued inpatient stay Substantial Risk for: inability to function, rapid decompensation and med/psych decompensation Time Spent With Patient Time: Total time managing care of this patient today __20__ minutes.
[2024-04-03] MEDS: metFORMIN HCl ER 500 MG TAB.ER.24H 1000 MG PO (16:16)
[2024-04-03 19:25] VITALS: BP 115/70; PULSE 86; TEMP 36.9; O2SAT 97
[2024-04-03] MEDS: lamoTRIgine 100 MG TABLET 150 MG PO (20:48)
[2024-04-03] MEDS: traZODone HCL 50 MG TABLET PO (20:49)
[2024-04-03] MEDS: Insulin Glargine,Hum.rec.anlog 100 UNIT/ML 10 ML VIAL 20 UNIT SUBCUT (20:49)
[2024-04-04] MEDS: Levothyroxine Sodium 150 MCG TABLET PO (06:19)
[2024-04-04 06:39] LABS: Glucose, Whole Blood 141 mg/dL (60-115)
[2024-04-04 08:45] VITALS: BP 118/67; PULSE 89; RESP 19; TEMP 36.6; O2SAT 96
[2024-04-04] MEDS: Memantine HCl 5 MG TABLET PO ×2 (08:48→21:24)
[2024-04-04] MEDS: Sertraline HCL 50 MG TABLET PO (08:48)
[2024-04-04] MEDS: metFORMIN HCl ER 500 MG TAB.ER.24H 1000 MG PO (16:44)
--- NOTE | 2024-04-04 19:03 | HO.PSYCHPN ---
Subjective Subjective Date of Service: 04/04/24 Reason For Visit: crisis Subjective Notes: Conditional Voluntary Healthcare Proxy: Yes Interim History: Pt calm cooperative pt has refused outpt placement dependant fearful passive case revied with nursing staff Mental Status Exam Mental Status Exam Patient Appearance: Appropriate Patient Orientation: Person and Place Level of Consciousness: Awake Patient Behavior: Guarded and Passive Mood Description: Withdrawn and Flat Affect Description: Constricted Patient Cognition Impaired: Yes Ability to Follow Directions: Good Speech Pattern: Clear 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: None Delusions: Ideas of Reference Thought Process: Distracted Thought Content: positive for [place] and positive for Poverty of Content Judgement: Poor Diagnostics Vital Signs (24Hr): Vital Signs - 24 hr 04/03/24 19:25 04/04/24 08:45 Temperature 98.4 F 97.9 F Pulse Rate 86 89 Respiratory Rate 19 Blood Pressure 115/70 118/67 Pulse Oximetry 97 96 Oxygen Delivery Method Room Air Room Air BMI result Body Mass Index 31.4 Labs 09/10/23 20:00 04/02/24 08:09 Labs: Laboratory Results - last 48 hr 04/03/24 04/04/24 05:52 06:18 POC Glucose 120 H 141 H Imaging Radiology Impressions: ITS Impressions Brain MRI 09/19/23 20:33 IMPRESSION: 1. No demonstrated acute intracranial abnormalities. 2. Chronic mild to moderate nonspecific white matter changes, most notably in the deep white matter of the right frontal lobe. Mild to moderate generalized cerebral volume loss. Chest X-Ray 04/02/24 14:30 IMPRESSION: Moderate biapical pleural thickening. The lungs are clear. Electronically signed by: Matias Cormier MD 04/02/2024 03:12 [facility] Medic[facility] Medications Current Medications Acetaminophen (Acetaminophen 325 Mg Tablet) 650 mg PO Q6H PRN PRN Reason: Headache/Pain Mild Scale (1-3) Last Admin: 03/03/24 08:45 Dose: 650 mg Al Hydroxide/Mg Hydroxide (Magnesium Hydrox/Alum Hydrox 30 Ml Oral.Susp) 30 ml PO Q6H PRN PRN Reason: Heartburn/Nausea Last Admin: 11/27/23 10:48 Dose: 30 ml Aripiprazole (Aripiprazole Er 300 Mg Suser.Syr) 300 mg IM Q28D@0900 [facility]NAS Last Admin: 04/01/24 12:16 Dose: 300 mg Benzocaine (Throat Lozenge, Medicated Lozenge) 1 lozenge MUCOUS MEM Q2H PRN PRN Reason: Sore Throat Last Admin: 12/30/23 20:59 Dose: 1 lozenge Benztropine Mesylate (Benztropine Mesylate 0.5 Mg Tablet) 0.5 mg PO TID PRN PRN Reason: Extrapyramidal Effects Glucose (Glucose Gel 15 Gm Gel..Gram.) 15 gm PO Q15M PRN; Protocol PRN Reason: per Hypoglycemia Standing Ord. Guaifenesin/Dextromethorphan (Guaifenesin Dm 100/10/5 Ml 5 Ml Syrup) 5 ml PO Q4H PRN PRN Reason: Cough Last Admin: 03/01/24 08:16 Dose: 5 ml Hydroxyzine HCl (Hydroxyzine Hcl 25 Mg Tablet) 25 mg PO Q6H PRN PRN Reason: Anxiety Last Admin: 04/01/24 08:19 Dose: 25 mg Insulin Glargine (Insulin Glargine,Hum.Rec.Anlog 100 Unit/Ml 10 Ml Vial) 20 unit SUBCUT BEDTIME [facility] Last Admin: 04/03/24 20:49 Dose: 20 unit Lamotrigine (Lamotrigine 100 Mg Tablet) 150 mg PO BEDTIME [facility] Last Admin: 04/03/24 20:48 Dose: 150 mg Levothyroxine Sodium (Levothyroxine Sodium 150 Mcg Tablet) 150 mcg PO DAILY@0630 [facility] Last Admin: 04/04/24 06:19 Dose: 150 mcg Magnesium Hydroxide (Milk Of Magnesia 30 Ml Oral.Susp) 30 ml PO DAILY PRN PRN Reason: Constipation Memantine (Memantine Hcl 5 Mg Tablet) 5 mg PO BID [facility] Last Admin: 04/04/24 08:48 Dose: 5 mg Metformin HCl (Metformin Hcl Er 500 Mg Tab.Er.24h) 1,000 mg PO DAILY@1700 [facility] Last Admin: 04/04/24 16:44 Dose: 1,000 mg Ondansetron HCl (Ondansetron Odt 8 Mg Tab.Rapdis) 8 mg TRANSLINGU Q8H PRN PRN Reason: Nausea and Vomiting Last Admin: 02/17/24 10:06 Dose: 8 mg Pseudoephedrine HCl (Pseudoephedrine Hcl 30 Mg Tablet) 30 mg PO Q4H PRN PRN Reason: Nasal Congestion Last Admin: 03/03/24 08:45 Dose: 30 mg Sertraline HCl (Sertraline Hcl 50 Mg Tablet) 50 mg PO DAILY [facility] Last Admin: 04/04/24 08:48 Dose: 50 mg Simethicone (Simethicone 80 Mg Tab.Chew) 80 mg PO QIDWMHS PRN PRN Reason: Gas Trazodone HCl (Trazodone Hcl 50 Mg Tablet) 50 mg PO BEDTIME MRX1 PRN PRN Reason: Insomnia Last Admin: 04/03/24 20:49 Dose: 50 mg Allergies Allergies Allergy/AdvReac Type Severity Reaction Status Date / Time amoxicillin [AMOXICILLIN] Allergy Mild VOMITING/ABD Verified 09/10/23 19:44 PAIN Assessment & Plan Assessment & Plan (1) Schizoaffective disorder: Status: Acute Code(s): F25.9 - Schizoaffective disorder, unspecified (2) Hypothyroidism: Status: Acute Code(s): E03.9 - Hypothyroidism, unspecified (3) Type 2 diabetes mellitus: Status: Acute Code(s): E11.9 - Type 2 diabetes mellitus without complications (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 Continue with same medications. 2. Waiting for placement. 04/04/23 complex d/c s/p brain injury dependant diffulty with judgement and fearful of not being in safe setting Patient educated on: therapeutic strategies Reason for continued inpatient stay Substantial Risk for: inability to function, rapid decompensation and med/psych decompensation Time Spent With Patient Time: Total time managing care of this patient today ____ minutes.
[2024-04-04 20:00] VITALS: BP 121/68; PULSE 82; RESP 16; TEMP 36; O2SAT 97
[2024-04-04] MEDS: lamoTRIgine 100 MG TABLET 150 MG PO (21:23)
[2024-04-04] MEDS: traZODone HCL 50 MG TABLET PO (21:23)
[2024-04-04] MEDS: Insulin Glargine,Hum.rec.anlog 100 UNIT/ML 10 ML VIAL 20 UNIT SUBCUT (21:25)
[2024-04-05] MEDS: Levothyroxine Sodium 150 MCG TABLET PO (06:56)
[2024-04-05 07:08] LABS: Glucose, Whole Blood 126 mg/dL (60-115)
[2024-04-05 08:40] VITALS: BP 123/71; PULSE 80; RESP 18; TEMP 36.1; O2SAT 98
[2024-04-05] MEDS: Memantine HCl 5 MG TABLET PO ×2 (08:51→20:01)
[2024-04-05] MEDS: Sertraline HCL 50 MG TABLET PO (08:51)
[2024-04-05 14:30] VITALS: BP 123/63; PULSE 51; RESP 18; TEMP 36.1; O2SAT 99
[2024-04-05] MEDS: metFORMIN HCl ER 500 MG TAB.ER.24H 1000 MG PO (16:11)
[2024-04-05 19:59] VITALS: BP 124/64; PULSE 74; RESP 16; TEMP 36.6; O2SAT 97
[2024-04-05] MEDS: hydrOXYzine HCL 25 MG TABLET PO (20:01)
[2024-04-05] MEDS: lamoTRIgine 100 MG TABLET 150 MG PO (20:01)
[2024-04-05] MEDS: Insulin Glargine,Hum.rec.anlog 100 UNIT/ML 10 ML VIAL 20 UNIT SUBCUT (20:01)
[2024-04-05] MEDS: traZODone HCL 50 MG TABLET PO (20:04)
--- NOTE | 2024-04-06 00:41 | P.PNPSI_ITS ---
Subjective Subjective Date of Service: 04/05/24 Reason For Visit: crisis Subjective Notes: Conditional Voluntary Healthcare Proxy: Yes Interim History: Pt flat passive cooperative limited insight Medication Compliance: Yes Side effects from medications: No Attending Groups: Yes Mental Status Exam Mental Status Exam Patient Appearance: Appropriate Patient Orientation: Person and Situation Level of Consciousness: Awake and Appropriate Patient Behavior: Guarded and Passive Mood Description: Withdrawn Affect Description: Blunted Patient Cognition Impaired: Yes Ability to Follow Directions: Good Speech Pattern: Clear 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: None Delusions: Paranoid Ideation and Ideas of Reference Thought Process: Distracted and Slowed Thinking Thought Content: positive for [place] and positive for Poverty of Content Judgement: Fair Judgement and Insight: able to say i dont want to go to [facility] Diagnostics Vital Signs (24Hr): Vital Signs - 24 hr 04/05/24 08:40 04/05/24 14:30 04/05/24 19:59 Temperature 96.9 F 97 F 98 F Pulse Rate 80 51 74 Respiratory Rate 18 18 16 Blood Pressure 123/71 123/63 124/64 Pulse Oximetry 98 99 97 Oxygen Delivery Method Room Air Room Air Room Air BMI result Body Mass Index 31.4 Labs 09/10/23 20:00 04/02/24 08:09 Labs: Laboratory Results - last 48 hr 04/04/24 04/05/24 06:18 06:59 POC Glucose 141 H 126 H Imaging Radiology Impressions: ITS Impressions Brain MRI 09/19/23 20:33 IMPRESSION: 1. No demonstrated acute intracranial abnormalities. 2. Chronic mild to moderate nonspecific white matter changes, most notably in the deep white matter of the right frontal lobe. Mild to moderate generalized cerebral volume loss. Chest X-Ray 04/02/24 14:30 IMPRESSION: Moderate biapical pleural thickening. The lungs are clear. Electronically signed by: Matias Cormier MD 04/02/2024 03:12 PM [facility] Medications Medications Current Medications Acetaminophen (Acetaminophen 325 Mg Tablet) 650 mg PO Q6H PRN PRN Reason: Headache/Pain Mild Scale (1-3) Last Admin: 03/03/24 08:45 Dose: 650 mg Al Hydroxide/Mg Hydroxide (Magnesium Hydrox/Alum Hydrox 30 Ml Oral.Susp) 30 ml PO Q6H PRN PRN Reason: Heartburn/Nausea Last Admin: 11/27/23 10:48 Dose: 30 ml Aripiprazole (Aripiprazole Er 300 Mg Suser.Syr) 300 mg IM Q28D@0900 [facility] Last Admin: 04/01/24 12:16 Dose: 300 mg Benzocaine (Throat Lozenge, Medicated Lozenge) 1 lozenge MUCOUS MEM Q2H PRN PRN Reason: Sore Throat Last Admin: 12/30/23 20:59 Dose: 1 lozenge Benztropine Mesylate (Benztropine Mesylate 0.5 Mg Tablet) 0.5 mg PO TID PRN PRN Reason: Extrapyramidal Effects Glucose (Glucose Gel 15 Gm Gel..Gram.) 15 gm PO Q15M PRN; Protocol PRN Reason: per Hypoglycemia Standing Ord. Guaifenesin/Dextromethorphan (Guaifenesin Dm 100/10/5 Ml 5 Ml Syrup) 5 ml PO Q4H PRN PRN Reason: Cough Last Admin: 03/01/24 08:16 Dose: 5 ml Hydroxyzine HCl (Hydroxyzine Hcl 25 Mg Tablet) 25 mg PO Q6H PRN PRN Reason: Anxiety Last Admin: 04/05/24 20:01 Dose: 25 mg Insulin Glargine (Insulin Glargine,Hum.Rec.Anlog 100 Unit/Ml 10 Ml Vial) 20 unit SUBCUT BEDTIME [facility] Last Admin: 04/05/24 20:01 Dose: 20 unit Lamotrigine (Lamotrigine 100 Mg Tablet) 150 mg PO BEDTIME [facility] Last Admin: 04/05/24 20:01 Dose: 150 mg Levothyroxine Sodium (Levothyroxine Sodium 150 Mcg Tablet) 150 mcg PO DAILY@0630 [facility] Last Admin: 04/05/24 06:56 Dose: 150 mcg Magnesium Hydroxide (Milk Of Magnesia 30 Ml Oral.Susp) 30 ml PO DAILY PRN PRN Reason: Constipation Memantine (Memantine Hcl 5 Mg Tablet) 5 mg PO BID [facility] Last Admin: 04/05/24 20:01 Dose: 5 mg Metformin HCl (Metformin Hcl Er 500 Mg Tab.Er.24h) 1,000 mg PO DAILY@1700 [facility] Last Admin: 04/05/24 16:11 Dose: 1,000 mg Ondansetron HCl (Ondansetron Odt 8 Mg Tab.Rapdis) 8 mg TRANSLINGU Q8H PRN PRN Reason: Nausea and Vomiting Last Admin: 02/17/24 10:06 Dose: 8 mg Pseudoephedrine HCl (Pseudoephedrine Hcl 30 Mg Tablet) 30 mg PO Q4H PRN PRN Reason: Nasal Congestion Last Admin: 03/03/24 08:45 Dose: 30 mg Sertraline HCl (Sertraline Hcl 50 Mg Tablet) 50 mg PO DAILY [facility] Last Admin: 04/05/24 08:51 Dose: 50 mg Simethicone (Simethicone 80 Mg Tab.Chew) 80 mg PO QIDWMHS PRN PRN Reason: Gas Trazodone HCl (Trazodone Hcl 50 Mg Tablet) 50 mg PO BEDTIME MRX1 PRN PRN Reason: Insomnia Last Admin: 04/05/24 20:04 Dose: 50 mg Allergies Allergies Allergy/AdvReac Type Severity Reaction Status Date / Time amoxicillin [AMOXICILLIN] Allergy Mild VOMITING/ABD Verified 09/10/23 19:44 PAIN Assessment & Plan Assessment & Plan (1) Schizoaffective disorder: Status: Acute Code(s): F25.9 - Schizoaffective disorder, unspecified (2) Hypothyroidism: Status: Acute Code(s): E03.9 - Hypothyroidism, unspecified (3) Type 2 diabetes mellitus: Status: Acute Code(s): E11.9 - Type 2 diabetes mellitus without complications (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 Continue with same medications. 2. Waiting for placement. 04/04/23 complex d/c s/p brain injury dependant diffulty with judgement and fearful of not being in safe setting Informed Consent: further education needed Reason for continued inpatient stay Substantial Risk for: inability to function, rapid decompensation and med/psych decompensation Time Spent With Patient Time: Total time managing care of this patient today ____ minutes.
[2024-04-06] MEDS: Levothyroxine Sodium 150 MCG TABLET PO (06:10)
[2024-04-06 06:22] LABS: Glucose, Whole Blood 114 mg/dL (60-115)
[2024-04-06 09:03] VITALS: BP 139/68; PULSE 84; RESP 16; TEMP 36.8; O2SAT 97
[2024-04-06] MEDS: Memantine HCl 5 MG TABLET PO ×2 (09:07→20:21)
[2024-04-06] MEDS: Sertraline HCL 50 MG TABLET PO (09:07)
--- NOTE | 2024-04-06 15:00 | HO.PSYCHPN ---
Subjective Subjective Date of Service: 04/06/24 Reason For Visit: crisis Subjective Notes: Conditional Voluntary Interim History: The nursing staff reported no changes in mental status compliant with treatment. On interview the patient denies new symptoms. Mental Status Exam Mental Status Exam Patient Appearance: Appropriate Patient Orientation: Person and Situation Level of Consciousness: Awake and Appropriate Patient Behavior: Guarded and Passive Mood Description: Withdrawn Affect Description: Blunted Patient Cognition Impaired: Yes Ability to Follow Directions: Good Speech Pattern: Clear 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: None Delusions: Paranoid Ideation and Ideas of Reference Thought Process: Distracted and Slowed Thinking Thought Content: positive for [place] and positive for Poverty of Content Judgement: Fair Diagnostics Vital Signs (24Hr): Vital Signs - 24 hr 04/05/24 19:59 04/06/24 09:03 Temperature 98 F 98.2 F Pulse Rate 74 84 Respiratory Rate 16 16 Blood Pressure 124/64 139/68 Pulse Oximetry 97 97 Oxygen Delivery Method Room Air Room Air BMI result Body Mass Index 31.4 Labs 09/10/23 20:00 04/02/24 08:09 Labs: Laboratory Results - last 48 hr 04/05/24 04/06/24 06:59 06:11 POC Glucose 126 H 114 Imaging Radiology Impressions: ITS Impressions Brain MRI 09/19/23 20:33 IMPRESSION: 1. No demonstrated acute intracranial abnormalities. 2. Chronic mild to moderate nonspecific white matter changes, most notably in the deep white matter of the right frontal lobe. Mild to moderate generalized cerebral volume loss. Chest X-Ray 04/02/24 14:30 IMPRESSION: Moderate biapical pleural thickening. The lungs are clear. Electronically signed by: Matias Cormier MD 04/02/2024 03:12 PM [facility] Medications Medications Current Medications Acetaminophen (Acetaminophen 325 Mg Tablet) 650 mg PO Q6H PRN PRN Reason: Headache/Pain Mild Scale (1-3) Last Admin: 03/03/24 08:45 Dose: 650 mg Al Hydroxide/Mg Hydroxide (Magnesium Hydrox/Alum Hydrox 30 Ml Oral.Susp) 30 ml PO Q6H PRN PRN Reason: Heartburn/Nausea Last Admin: 11/27/23 10:48 Dose: 30 ml Aripiprazole (Aripiprazole Er 300 Mg Suser.Syr) 300 mg IM Q28D@0900 [facility] Last Admin: 04/01/24 12:16 Dose: 300 mg Benzocaine (Throat Lozenge, Medicated Lozenge) 1 lozenge MUCOUS MEM Q2H PRN PRN Reason: Sore Throat Last Admin: 12/30/23 20:59 Dose: 1 lozenge Benztropine Mesylate (Benztropine Mesylate 0.5 Mg Tablet) 0.5 mg PO TID PRN PRN Reason: Extrapyramidal Effects Glucose (Glucose Gel 15 Gm Gel..Gram.) 15 gm PO Q15M PRN; Protocol PRN Reason: per Hypoglycemia Standing Ord. Guaifenesin/Dextromethorphan (Guaifenesin Dm 100/10/5 Ml 5 Ml Syrup) 5 ml PO Q4H PRN PRN Reason: Cough Last Admin: 03/01/24 08:16 Dose: 5 ml Hydroxyzine HCl (Hydroxyzine Hcl 25 Mg Tablet) 25 mg PO Q6H PRN PRN Reason: Anxiety Last Admin: 04/05/24 20:01 Dose: 25 mg Insulin Glargine (Insulin Glargine,Hum.Rec.Anlog 100 Unit/Ml 10 Ml Vial) 20 unit SUBCUT BEDTIME [facility] Last Admin: 04/05/24 20:01 Dose: 20 unit Lamotrigine (Lamotrigine 100 Mg Tablet) 150 mg PO BEDTIME [facility] Last Admin: 04/05/24 20:01 Dose: 150 mg Levothyroxine Sodium (Levothyroxine Sodium 150 Mcg Tablet) 150 mcg PO DAILY@0630 [facility] Last Admin: 04/06/24 06:10 Dose: 150 mcg Magnesium Hydroxide (Milk Of Magnesia 30 Ml Oral.Susp) 30 ml PO DAILY PRN PRN Reason: Constipation Memantine (Memantine Hcl 5 Mg Tablet) 5 mg PO BID [facility] Last Admin: 04/06/24 09:07 Dose: 5 mg Metformin HCl (Metformin Hcl Er 500 Mg Tab.Er.24h) 1,000 mg PO DAILY@1700 [facility] Last Admin: 04/05/24 16:11 Dose: 1,000 mg Ondansetron HCl (Ondansetron Odt 8 Mg Tab.Rapdis) 8 mg TRANSLINGU Q8H PRN PRN Reason: Nausea and Vomiting Last Admin: 02/17/24 10:06 Dose: 8 mg Pseudoephedrine HCl (Pseudoephedrine Hcl 30 Mg Tablet) 30 mg PO Q4H PRN PRN Reason: Nasal Congestion Last Admin: 03/03/24 08:45 Dose: 30 mg Sertraline HCl (Sertraline Hcl 50 Mg Tablet) 50 mg PO DAILY [facility] Last Admin: 04/06/24 09:07 Dose: 50 mg Simethicone (Simethicone 80 Mg Tab.Chew) 80 mg PO QIDWMHS PRN PRN Reason: Gas Trazodone HCl (Trazodone Hcl 50 Mg Tablet) 50 mg PO BEDTIME MRX1 PRN PRN Reason: Insomnia Last Admin: 04/05/24 20:04 Dose: 50 mg Allergies Allergies Allergy/AdvReac Type Severity Reaction Status Date / Time amoxicillin [AMOXICILLIN] Allergy Mild VOMITING/ABD Verified 09/10/23 19:44 PAIN Assessment & Plan Assessment & Plan (1) Schizoaffective disorder: Status: Acute Code(s): F25.9 - Schizoaffective disorder, unspecified (2) Hypothyroidism: Status: Acute Code(s): E03.9 - Hypothyroidism, unspecified (3) Type 2 diabetes mellitus: Status: Acute Code(s): E11.9 - Type 2 diabetes mellitus without complications (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 Continue with same medications. 2. Waiting for placement. 3. The patient is on Abilify Maintena on maintenance of antipsychotics Reason for continued inpatient stay Substantial Risk for: inability to function, rapid decompensation and med/psych decompensation Time Spent With Patient Time: Total time managing care of this patient today __20__ minutes.
[2024-04-06] MEDS: metFORMIN HCl ER 500 MG TAB.ER.24H 1000 MG PO (16:34)
[2024-04-06 20:00] VITALS: BP 122/72; PULSE 74; TEMP 36.6; O2SAT 93
[2024-04-06] MEDS: lamoTRIgine 100 MG TABLET 150 MG PO (20:20)
[2024-04-06] MEDS: traZODone HCL 50 MG TABLET PO (20:20)
[2024-04-06] MEDS: Insulin Glargine,Hum.rec.anlog 100 UNIT/ML 10 ML VIAL 20 UNIT SUBCUT (20:21)
[2024-04-06] MEDS: hydrOXYzine HCL 25 MG TABLET PO (20:21)
[2024-04-07] MEDS: Levothyroxine Sodium 150 MCG TABLET PO (06:18)
[2024-04-07 06:36] LABS: Glucose, Whole Blood 112 mg/dL (60-115)
[2024-04-07 08:00] VITALS: BP 125/63; PULSE 71; RESP 16; TEMP 37; O2SAT 96
[2024-04-07] MEDS: Sertraline HCL 50 MG TABLET PO (08:25)
[2024-04-07] MEDS: Memantine HCl 5 MG TABLET PO ×2 (08:25→21:20)
--- NOTE | 2024-04-07 15:51 | HO.PSYCHPN ---
Subjective Subjective Date of Service: 04/07/24 Reason For Visit: crisis Subjective Notes: Conditional Voluntary Interim History: The nursing staff reported the patient had been pleasant cooperative no changes in his mental status. On interview the patient denies new symptoms waiting for placement. The older adult social work specialist reported that [facility] application is still in process. Mental Status Exam Mental Status Exam Patient Appearance: Appropriate Patient Orientation: Person and Situation Level of Consciousness: Awake and Appropriate Patient Behavior: Guarded and Passive Mood Description: Calm Affect Description: Constricted Patient Cognition Impaired: Yes Ability to Follow Directions: Good Speech Pattern: Clear 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: None Delusions: Not Present Thought Process: Distracted and Slowed Thinking Thought Content: positive for [place] and positive for Poverty of Content Judgement: Fair Diagnostics Vital Signs (24Hr): Vital Signs - 24 hr 04/06/24 20:00 04/07/24 08:00 Temperature 97.9 F 98.6 F Pulse Rate 74 71 Respiratory Rate 16 Blood Pressure 122/72 125/63 Pulse Oximetry 93 96 Oxygen Delivery Method Room Air Room Air BMI result Body Mass Index 31.4 Labs 09/10/23 20:00 04/02/24 08:09 Labs: Laboratory Results - last 48 hr 04/06/24 04/07/24 06:11 06:19 POC Glucose 114 112 Imaging Radiology Impressions: ITS Impressions Brain MRI 09/19/23 20:33 IMPRESSION: 1. No demonstrated acute intracranial abnormalities. 2. Chronic mild to moderate nonspecific white matter changes, most notably in the deep white matter of the right frontal lobe. Mild to moderate generalized cerebral volume loss. Chest X-Ray 04/02/24 14:30 IMPRESSION: Moderate biapical pleural thickening. The lungs are clear. Electronically signed by: Matias Cormier MD 04/02/2024 03:12 PM [facility] Medications Medications Current Medications Acetaminophen (Acetaminophen 325 Mg Tablet) 650 mg PO Q6H PRN PRN Reason: Headache/Pain Mild Scale (1-3) Last Admin: 03/03/24 08:45 Dose: 650 mg Al Hydroxide/Mg Hydroxide (Magnesium Hydrox/Alum Hydrox 30 Ml Oral.Susp) 30 ml PO Q6H PRN PRN Reason: Heartburn/Nausea Last Admin: 11/27/23 10:48 Dose: 30 ml Aripiprazole (Aripiprazole Er 300 Mg Suser.Syr) 300 mg IM Q28D@0900 [facility] Last Admin: 04/01/24 12:16 Dose: 300 mg Benzocaine (Throat Lozenge, Medicated Lozenge) 1 lozenge MUCOUS MEM Q2H PRN PRN Reason: Sore Throat Last Admin: 12/30/23 20:59 Dose: 1 lozenge Benztropine Mesylate (Benztropine Mesylate 0.5 Mg Tablet) 0.5 mg PO TID PRN PRN Reason: Extrapyramidal Effects Glucose (Glucose Gel 15 Gm Gel..Gram.) 15 gm PO Q15M PRN; Protocol PRN Reason: per Hypoglycemia Standing Ord. Guaifenesin/Dextromethorphan (Guaifenesin Dm 100/10/5 Ml 5 Ml Syrup) 5 ml PO Q4H PRN PRN Reason: Cough Last Admin: 03/01/24 08:16 Dose: 5 ml Hydroxyzine HCl (Hydroxyzine Hcl 25 Mg Tablet) 25 mg PO Q6H PRN PRN Reason: Anxiety Last Admin: 04/06/24 20:21 Dose: 25 mg Insulin Glargine (Insulin Glargine,Hum.Rec.Anlog 100 Unit/Ml 10 Ml Vial) 20 unit SUBCUT BEDTIME [facility] Last Admin: 04/06/24 20:21 Dose: 20 unit Lamotrigine (Lamotrigine 100 Mg Tablet) 150 mg PO BEDTIME [facility] Last Admin: 04/06/24 20:20 Dose: 150 mg Levothyroxine Sodium (Levothyroxine Sodium 150 Mcg Tablet) 150 mcg PO DAILY@0630 [facility] Last Admin: 04/07/24 06:18 Dose: 150 mcg Magnesium Hydroxide (Milk Of Magnesia 30 Ml Oral.Susp) 30 ml PO DAILY PRN PRN Reason: Constipation Memantine (Memantine Hcl 5 Mg Tablet) 5 mg PO BID [facility] Last Admin: 04/07/24 08:25 Dose: 5 mg Metformin HCl (Metformin Hcl Er 500 Mg Tab.Er.24h) 1,000 mg PO DAILY@1700 [facility] Last Admin: 04/06/24 16:34 Dose: 1,000 mg Ondansetron HCl (Ondansetron Odt 8 Mg Tab.Rapdis) 8 mg TRANSLINGU Q8H PRN PRN Reason: Nausea and Vomiting Last Admin: 02/17/24 10:06 Dose: 8 mg Pseudoephedrine HCl (Pseudoephedrine Hcl 30 Mg Tablet) 30 mg PO Q4H PRN PRN Reason: Nasal Congestion Last Admin: 03/03/24 08:45 Dose: 30 mg Sertraline HCl (Sertraline Hcl 50 Mg Tablet) 50 mg PO DAILY [facility] Last Admin: 04/07/24 08:25 Dose: 50 mg Simethicone (Simethicone 80 Mg Tab.Chew) 80 mg PO QIDWMHS PRN PRN Reason: Gas Trazodone HCl (Trazodone Hcl 50 Mg Tablet) 50 mg PO BEDTIME MRX1 PRN PRN Reason: Insomnia Last Admin: 04/06/24 20:20 Dose: 50 mg Allergies Allergies Allergy/AdvReac Type Severity Reaction Status Date / Time amoxicillin [AMOXICILLIN] Allergy Mild VOMITING/ABD Verified 09/10/23 19:44 PAIN Assessment & Plan Assessment & Plan (1) Schizoaffective disorder: Status: Acute Code(s): F25.9 - Schizoaffective disorder, unspecified (2) Hypothyroidism: Status: Acute Code(s): E03.9 - Hypothyroidism, unspecified (3) Type 2 diabetes mellitus: Status: Acute Code(s): E11.9 - Type 2 diabetes mellitus without complications (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 Continue with same medications. 2. Waiting for placement. Reason for continued inpatient stay Substantial Risk for: inability to function, rapid decompensation and med/psych decompensation Time Spent With Patient Time: Total time managing care of this patient today __20__ minutes.
[2024-04-07] MEDS: metFORMIN HCl ER 500 MG TAB.ER.24H 1000 MG PO (17:21)
[2024-04-07 20:00] VITALS: BP 118/69; PULSE 76; RESP 18; TEMP 36.1; O2SAT 96
[2024-04-07 21:03] LABS: Glucose, Whole Blood 178 mg/dL (60-115)
[2024-04-07] MEDS: Insulin Glargine,Hum.rec.anlog 100 UNIT/ML 10 ML VIAL 20 UNIT SUBCUT (21:18)
[2024-04-07] MEDS: lamoTRIgine 100 MG TABLET 150 MG PO (21:19)
[2024-04-07] MEDS: hydrOXYzine HCL 25 MG TABLET PO (21:25)
[2024-04-07] MEDS: traZODone HCL 50 MG TABLET PO (21:25)
[2024-04-08] MEDS: Levothyroxine Sodium 150 MCG TABLET PO (06:14)
[2024-04-08 06:35] LABS: Glucose, Whole Blood 127 mg/dL (60-115)
[2024-04-08 08:00] VITALS: BP 118/62; PULSE 89; RESP 18; TEMP 37.1; O2SAT 97
[2024-04-08] MEDS: Memantine HCl 5 MG TABLET PO ×2 (08:58→20:11)
[2024-04-08] MEDS: Sertraline HCL 50 MG TABLET PO (08:58)
--- NOTE | 2024-04-08 15:56 | HO.PSYCHPN ---
Subjective Subjective Date of Service: 04/08/24 Reason For Visit: crisis Subjective Notes: Conditional Voluntary Interim History: The nursing staff reported the patient had been compliant with treatment no changes in his mental status. On interview the patient denies new symptoms, waiting for placement. The oncology social work reported that the application for [employer] still in process. Mental Status Exam Mental Status Exam Patient Appearance: Appropriate Patient Orientation: Person and Situation Level of Consciousness: Awake and Appropriate Patient Behavior: Appropriate Mood Description: Calm Affect Description: Constricted Patient Cognition Impaired: Yes Ability to Follow Directions: Good Speech Pattern: Clear 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: None Delusions: Ideas of Reference Thought Process: Distracted and Slowed Thinking Thought Content: positive for [place] and positive for Poverty of Content Judgement: Fair Diagnostics Vital Signs (24Hr): Vital Signs - 24 hr 04/07/24 20:00 04/08/24 08:00 Temperature 97 F 98.8 F Pulse Rate 76 89 Respiratory Rate 18 18 Blood Pressure 118/69 118/62 Pulse Oximetry 96 97 Oxygen Delivery Method Room Air Room Air BMI result Body Mass Index 31.4 Labs 09/10/23 20:00 04/02/24 08:09 Labs: Laboratory Results - last 48 hr 04/07/24 04/07/24 04/08/24 06:19 20:59 06:13 POC Glucose 112 178 H 127 H Imaging Radiology Impressions: ITS Impressions Brain MRI 09/19/23 20:33 IMPRESSION: 1. No demonstrated acute intracranial abnormalities. 2. Chronic mild to moderate nonspecific white matter changes, most notably in the deep white matter of the right frontal lobe. Mild to moderate generalized cerebral volume loss. Chest X-Ray 04/02/24 14:30 IMPRESSION: Moderate biapical pleural thickening. The lungs are clear. Electronically signed by: Matias Cormier MD 04/02/2024 03:12 PM [facility] Medications Medications Current Medications Acetaminophen (Acetaminophen 325 Mg Tablet) 650 mg PO Q6H PRN PRN Reason: Headache/Pain Mild Scale (1-3) Last Admin: 03/03/24 08:45 Dose: 650 mg Al Hydroxide/Mg Hydroxide (Magnesium Hydrox/Alum Hydrox 30 Ml Oral.Susp) 30 ml PO Q6H PRN PRN Reason: Heartburn/Nausea Last Admin: 11/27/23 10:48 Dose: 30 ml Aripiprazole (Aripiprazole Er 300 Mg Suser.Syr) 300 mg IM Q28D@0900 [facility] Last Admin: 04/01/24 12:16 Dose: 300 mg Benzocaine (Throat Lozenge, Medicated Lozenge) 1 lozenge MUCOUS MEM Q2H PRN PRN Reason: Sore Throat Last Admin: 12/30/23 20:59 Dose: 1 lozenge Benztropine Mesylate (Benztropine Mesylate 0.5 Mg Tablet) 0.5 mg PO TID PRN PRN Reason: Extrapyramidal Effects Glucose (Glucose Gel 15 Gm Gel..Gram.) 15 gm PO Q15M PRN; Protocol PRN Reason: per Hypoglycemia Standing Ord. Guaifenesin/Dextromethorphan (Guaifenesin Dm 100/10/5 Ml 5 Ml Syrup) 5 ml PO Q4H PRN PRN Reason: Cough Last Admin: 03/01/24 08:16 Dose: 5 ml Hydroxyzine HCl (Hydroxyzine Hcl 25 Mg Tablet) 25 mg PO Q6H PRN PRN Reason: Anxiety Last Admin: 04/07/24 21:25 Dose: 25 mg Insulin Glargine (Insulin Glargine,Hum.Rec.Anlog 100 Unit/Ml 10 Ml Vial) 20 unit SUBCUT BEDTIME [facility] Last Admin: 04/07/24 21:18 Dose: 20 unit Lamotrigine (Lamotrigine 100 Mg Tablet) 150 mg PO BEDTIME [facility] Last Admin: 04/07/24 21:19 Dose: 150 mg Levothyroxine Sodium (Levothyroxine Sodium 150 Mcg Tablet) 150 mcg PO DAILY@0630 [facility] Last Admin: 04/08/24 06:14 Dose: 150 mcg Magnesium Hydroxide (Milk Of Magnesia 30 Ml Oral.Susp) 30 ml PO DAILY PRN PRN Reason: Constipation Memantine (Memantine Hcl 5 Mg Tablet) 5 mg PO BID [facility] Last Admin: 04/08/24 08:58 Dose: 5 mg Metformin HCl (Metformin Hcl Er 500 Mg Tab.Er.24h) 1,000 mg PO DAILY@1700 [facility] Last Admin: 04/07/24 17:21 Dose: 1,000 mg Ondansetron HCl (Ondansetron Odt 8 Mg Tab.Rapdis) 8 mg TRANSLINGU Q8H PRN PRN Reason: Nausea and Vomiting Last Admin: 02/17/24 10:06 Dose: 8 mg Pseudoephedrine HCl (Pseudoephedrine Hcl 30 Mg Tablet) 30 mg PO Q4H PRN PRN Reason: Nasal Congestion Last Admin: 03/03/24 08:45 Dose: 30 mg Sertraline HCl (Sertraline Hcl 50 Mg Tablet) 50 mg PO DAILY [facility] Last Admin: 04/08/24 08:58 Dose: 50 mg Simethicone (Simethicone 80 Mg Tab.Chew) 80 mg PO QIDWMHS PRN PRN Reason: Gas Trazodone HCl (Trazodone Hcl 50 Mg Tablet) 50 mg PO BEDTIME MRX1 PRN PRN Reason: Insomnia Last Admin: 04/07/24 21:25 Dose: 50 mg Allergies Allergies Allergy/AdvReac Type Severity Reaction Status Date / Time amoxicillin [AMOXICILLIN] Allergy Mild VOMITING/ABD Verified 09/10/23 19:44 PAIN Assessment & Plan Assessment & Plan (1) Schizoaffective disorder: Status: Acute Code(s): F25.9 - Schizoaffective disorder, unspecified (2) Hypothyroidism: Status: Acute Code(s): E03.9 - Hypothyroidism, unspecified (3) Type 2 diabetes mellitus: Status: Acute Code(s): E11.9 - Type 2 diabetes mellitus without complications (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 Continue with same medications. 2. Waiting for placement. Reason for continued inpatient stay Substantial Risk for: inability to function, rapid decompensation and med/psych decompensation Time Spent With Patient Time: Total time managing care of this patient today __20__ minutes.
[2024-04-08] MEDS: metFORMIN HCl ER 500 MG TAB.ER.24H 1000 MG PO (17:43)
[2024-04-08 20:00] VITALS: BP 127/65; PULSE 85; TEMP 36.2; O2SAT 95
[2024-04-08] MEDS: lamoTRIgine 100 MG TABLET 150 MG PO (20:11)
[2024-04-08] MEDS: traZODone HCL 50 MG TABLET PO (20:11)
[2024-04-08] MEDS: Insulin Glargine,Hum.rec.anlog 100 UNIT/ML 10 ML VIAL 20 UNIT SUBCUT (20:11)
[2024-04-09] MEDS: Levothyroxine Sodium 150 MCG TABLET PO (06:28)
[2024-04-09 07:03] LABS: Glucose, Whole Blood 108 mg/dL (60-115)
[2024-04-09 08:00] VITALS: BP 129/66; PULSE 76; RESP 20; TEMP 36.6; O2SAT 96
[2024-04-09] MEDS: Memantine HCl 5 MG TABLET PO ×2 (08:43→20:45)
[2024-04-09] MEDS: Sertraline HCL 50 MG TABLET PO (08:43)
[2024-04-09 09:39] LABS: Creatinine Clr Calc Pharmacy 90.5; Estimated Glomerular Filt Rate > 60
--- NOTE | 2024-04-09 15:47 | HO.PSYCHPN ---
Subjective Subjective Date of Service: 04/09/24 Reason For Visit: crisis Subjective Notes: Conditional Voluntary Interim History: The nursing staff reported no changes in his mental status compliant with treatment. On interview the patient denies new symptoms. Waiting for placement. Mental Status Exam Mental Status Exam Patient Appearance: Appropriate Patient Orientation: Person and Situation Level of Consciousness: Awake and Appropriate Patient Behavior: Guarded and Passive Mood Description: Withdrawn Affect Description: Constricted Patient Cognition Impaired: Yes Ability to Follow Directions: Good Speech Pattern: Clear 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: None Delusions: Ideas of Reference Thought Process: Distracted and Slowed Thinking Thought Content: positive for [place] and positive for Poverty of Content Judgement: Fair Diagnostics Vital Signs (24Hr): Vital Signs - 24 hr 04/08/24 20:00 04/09/24 08:00 Temperature 97.2 F 97.8 F Pulse Rate 85 76 Respiratory Rate 20 Blood Pressure 127/65 129/66 Pulse Oximetry 95 96 Oxygen Delivery Method Room Air Room Air BMI result Body Mass Index 31.4 Labs 09/10/23 20:00 04/09/24 08:54 Labs: Laboratory Results - last 48 hr 04/07/24 04/08/24 04/09/24 20:59 06:13 06:29 Creatinine Estim Creat Clear Calc Estimated GFR POC Glucose 178 H 127 H 108 04/09/24 08:54 Creatinine 1.00 Estim Creat Clear Calc 90.5 Estimated GFR > 60 POC Glucose Imaging Radiology Impressions: ITS Impressions Brain MRI 09/19/23 20:33 IMPRESSION: 1. No demonstrated acute intracranial abnormalities. 2. Chronic mild to moderate nonspecific white matter changes, most notably in the deep white matter of the right frontal lobe. Mild to moderate generalized cerebral volume loss. Chest X-Ray 04/02/24 14:30 IMPRESSION: Moderate biapical pleural thickening. The lungs are clear. Electronically signed by: Matias Cormier MD 04/02/2024 03:12 PM [facility] [place] Medications Medications Current Medications Acetaminophen (Acetaminophen 325 Mg Tablet) 650 mg PO Q6H PRN PRN Reason: Headache/Pain Mild Scale (1-3) Last Admin: 03/03/24 08:45 Dose: 650 mg Al Hydroxide/Mg Hydroxide (Magnesium Hydrox/Alum Hydrox 30 Ml Oral.Susp) 30 ml PO Q6H PRN PRN Reason: Heartburn/Nausea Last Admin: 11/27/23 10:48 Dose: 30 ml Aripiprazole (Aripiprazole Er 300 Mg Suser.Syr) 300 mg IM Q28D@0900 [facility] Last Admin: 04/01/24 12:16 Dose: 300 mg Benzocaine (Throat Lozenge, Medicated Lozenge) 1 lozenge MUCOUS MEM Q2H PRN PRN Reason: Sore Throat Last Admin: 12/30/23 20:59 Dose: 1 lozenge Benztropine Mesylate (Benztropine Mesylate 0.5 Mg Tablet) 0.5 mg PO TID PRN PRN Reason: Extrapyramidal Effects Glucose (Glucose Gel 15 Gm Gel..Gram.) 15 gm PO Q15M PRN; Protocol PRN Reason: per Hypoglycemia Standing Ord. Guaifenesin/Dextromethorphan (Guaifenesin Dm 100/10/5 Ml 5 Ml Syrup) 5 ml PO Q4H PRN PRN Reason: Cough Last Admin: 03/01/24 08:16 Dose: 5 ml Hydroxyzine HCl (Hydroxyzine Hcl 25 Mg Tablet) 25 mg PO Q6H PRN PRN Reason: Anxiety Last Admin: 04/07/24 21:25 Dose: 25 mg Insulin Glargine (Insulin Glargine,Hum.Rec.Anlog 100 Unit/Ml 10 Ml Vial) 20 unit SUBCUT BEDTIME [facility] Last Admin: 04/08/24 20:11 Dose: 20 unit Lamotrigine (Lamotrigine 100 Mg Tablet) 150 mg PO BEDTIME [facility] Last Admin: 04/08/24 20:11 Dose: 150 mg Levothyroxine Sodium (Levothyroxine Sodium 150 Mcg Tablet) 150 mcg PO DAILY@0630 [facility] Last Admin: 04/09/24 06:28 Dose: 150 mcg Magnesium Hydroxide (Milk Of Magnesia 30 Ml Oral.Susp) 30 ml PO DAILY PRN PRN Reason: Constipation Memantine (Memantine Hcl 5 Mg Tablet) 5 mg PO BID [facility] Last Admin: 04/09/24 08:43 Dose: 5 mg Metformin HCl (Metformin Hcl Er 500 Mg Tab.Er.24h) 1,000 mg PO DAILY@1700 [facility] Last Admin: 04/08/24 17:43 Dose: 1,000 mg Ondansetron HCl (Ondansetron Odt 8 Mg Tab.Rapdis) 8 mg TRANSLINGU Q8H PRN PRN Reason: Nausea and Vomiting Last Admin: 02/17/24 10:06 Dose: 8 mg Pseudoephedrine HCl (Pseudoephedrine Hcl 30 Mg Tablet) 30 mg PO Q4H PRN PRN Reason: Nasal Congestion Last Admin: 03/03/24 08:45 Dose: 30 mg Sertraline HCl (Sertraline Hcl 50 Mg Tablet) 50 mg PO DAILY [facility] Last Admin: 04/09/24 08:43 Dose: 50 mg Simethicone (Simethicone 80 Mg Tab.Chew) 80 mg PO QIDWMHS PRN PRN Reason: Gas Trazodone HCl (Trazodone Hcl 50 Mg Tablet) 50 mg PO BEDTIME MRX1 PRN PRN Reason: Insomnia Last Admin: 04/08/24 20:11 Dose: 50 mg Allergies Allergies Allergy/AdvReac Type Severity Reaction Status Date / Time amoxicillin [AMOXICILLIN] Allergy Mild VOMITING/ABD Verified 09/10/23 19:44 PAIN Assessment & Plan Assessment & Plan (1) Schizoaffective disorder: Status: Acute Code(s): F25.9 - Schizoaffective disorder, unspecified (2) Hypothyroidism: Status: Acute Code(s): E03.9 - Hypothyroidism, unspecified (3) Type 2 diabetes mellitus: Status: Acute Code(s): E11.9 - Type 2 diabetes mellitus without complications (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 Continue with same medications. 2. Waiting for placement. Reason for continued inpatient stay Substantial Risk for: inability to function, rapid decompensation and med/psych decompensation Time Spent With Patient Time: Total time managing care of this patient today __20__ minutes.
[2024-04-09] MEDS: metFORMIN HCl ER 500 MG TAB.ER.24H 1000 MG PO (16:34)
[2024-04-09 20:00] VITALS: BP 122/72; PULSE 80; RESP 16; TEMP 36.8; O2SAT 96
[2024-04-09] MEDS: lamoTRIgine 100 MG TABLET 150 MG PO (20:44)
[2024-04-09] MEDS: traZODone HCL 50 MG TABLET PO (20:44)
[2024-04-09] MEDS: Insulin Glargine,Hum.rec.anlog 100 UNIT/ML 10 ML VIAL 20 UNIT SUBCUT (20:45)
[2024-04-10] MEDS: Levothyroxine Sodium 150 MCG TABLET PO (06:29)
[2024-04-10 06:42] LABS: Glucose, Whole Blood 103 mg/dL (60-115)
[2024-04-10 08:00] VITALS: BP 139/78; PULSE 85; RESP 18; TEMP 36; O2SAT 94
[2024-04-10] MEDS: Sertraline HCL 50 MG TABLET PO (08:33)
[2024-04-10] MEDS: Memantine HCl 5 MG TABLET PO ×2 (08:33→20:02)
--- NOTE | 2024-04-10 10:35 | HO.PSYCHPN ---
Subjective Subjective Date of Service: 04/10/24 Reason For Visit: crisis Subjective Notes: Section 8 Interim History: Slept through the night. VS-stable. Eating well. He is taking medications as prescribed. No concerning behaviors. He is pleasant on approach. No overt signs of psychosis or delusional content. Review of Systems Review of Systems Unremarkable Yes all other systems are reviewed and are negative and unobtainable due to endotracheal tube Constitutional: Reports as per HPI Eyes: Reports as per HPI Reports as per HPI Cardiovascular: Reports as per HPI Respiratory: Reports as per HPI Gastrointestinal: Reports as per HPI Genitourinary: Reports as per HPI Musculoskeletal: Reports as per HPI Skin/Breast: Reports as per HPI Reports as per HPI Psychiatric: Reports as per HPI Endocrine: Reports as per HPI Hematologic/Lymphatic: Reports as per HPI Allergic/Immunologic: Reports as per HPI Mental Status Exam Mental Status Exam Patient Appearance: Appropriate Patient Orientation: Person and Situation Level of Consciousness: Awake and Appropriate Patient Behavior: Guarded and Passive Mood Description: Withdrawn Affect Description: Constricted Patient Cognition Impaired: Yes Ability to Follow Directions: Good Speech Pattern: Clear 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: Pathology Supervisor Impaired Diagnostics Vital Signs (24Hr): Vital Signs - 24 hr 04/09/24 20:00 04/10/24 08:00 Temperature 98.2 F 96.8 F Pulse Rate 80 85 Respiratory Rate 16 18 Blood Pressure 122/72 139/78 Pulse Oximetry 96 94 Oxygen Delivery Method Room Air Room Air BMI result Body Mass Index 31.4 Labs 09/10/23 20:00 04/09/24 08:54 Labs: Laboratory Results - last 48 hr 04/09/24 04/09/24 04/10/24 06:29 08:54 06:29 Creatinine 1.00 Estim Creat Clear Calc 90.5 Estimated GFR > 60 POC Glucose 108 103 Imaging Radiology Impressions: ITS Impressions Brain MRI 09/19/23 20:33 IMPRESSION: 1. No demonstrated acute intracranial abnormalities. 2. Chronic mild to moderate nonspecific white matter changes, most notably in the deep white matter of the right frontal lobe. Mild to moderate generalized cerebral volume loss. Chest X-Ray 04/02/24 14:30 IMPRESSION: Moderate biapical pleural thickening. The lungs are clear. Electronically signed by: Matias Cormier MD 04/02/2024 03:12 PM [facility] Medications Medications Current Medications Acetaminophen (Acetaminophen 325 Mg Tablet) 650 mg PO Q6H PRN PRN Reason: Headache/Pain Mild Scale (1-3) Last Admin: 03/03/24 08:45 Dose: 650 mg Al Hydroxide/Mg Hydroxide (Magnesium Hydrox/Alum Hydrox 30 Ml Oral.Susp) 30 ml PO Q6H PRN PRN Reason: Heartburn/Nausea Last Admin: 11/27/23 10:48 Dose: 30 ml Aripiprazole (Aripiprazole Er 300 Mg Suser.Syr) 300 mg IM Q28D@0900 [facility] Last Admin: 04/01/24 12:16 Dose: 300 mg Benzocaine (Throat Lozenge, Medicated Lozenge) 1 lozenge MUCOUS MEM Q2H PRN PRN Reason: Sore Throat Last Admin: 12/30/23 20:59 Dose: 1 lozenge Benztropine Mesylate (Benztropine Mesylate 0.5 Mg Tablet) 0.5 mg PO TID PRN PRN Reason: Extrapyramidal Effects Glucose (Glucose Gel 15 Gm Gel..Gram.) 15 gm PO Q15M PRN; Protocol PRN Reason: per Hypoglycemia Standing Ord. Guaifenesin/Dextromethorphan (Guaifenesin Dm 100/10/5 Ml 5 Ml Syrup) 5 ml PO Q4H PRN PRN Reason: Cough Last Admin: 03/01/24 08:16 Dose: 5 ml Hydroxyzine HCl (Hydroxyzine Hcl 25 Mg Tablet) 25 mg PO Q6H PRN PRN Reason: Anxiety Last Admin: 04/07/24 21:25 Dose: 25 mg Insulin Glargine (Insulin Glargine,Hum.Rec.Anlog 100 Unit/Ml 10 Ml Vial) 20 unit SUBCUT BEDTIME [facility] Last Admin: 04/09/24 20:45 Dose: 20 unit Lamotrigine (Lamotrigine 100 Mg Tablet) 150 mg PO BEDTIME [facility] Last Admin: 04/09/24 20:44 Dose: 150 mg Levothyroxine Sodium (Levothyroxine Sodium 150 Mcg Tablet) 150 mcg PO DAILY@0630 [facility] Last Admin: 04/10/24 06:29 Dose: 150 mcg Magnesium Hydroxide (Milk Of Magnesia 30 Ml Oral.Susp) 30 ml PO DAILY PRN PRN Reason: Constipation Memantine (Memantine Hcl 5 Mg Tablet) 5 mg PO BID [facility] Last Admin: 04/10/24 08:33 Dose: 5 mg Metformin HCl (Metformin Hcl Er 500 Mg Tab.Er.24h) 1,000 mg PO DAILY@1700 [facility] Last Admin: 04/09/24 16:34 Dose: 1,000 mg Ondansetron HCl (Ondansetron Odt 8 Mg Tab.Rapdis) 8 mg TRANSLINGU Q8H PRN PRN Reason: Nausea and Vomiting Last Admin: 02/17/24 10:06 Dose: 8 mg Pseudoephedrine HCl (Pseudoephedrine Hcl 30 Mg Tablet) 30 mg PO Q4H PRN PRN Reason: Nasal Congestion Last Admin: 03/03/24 08:45 Dose: 30 mg Sertraline HCl (Sertraline Hcl 50 Mg Tablet) 50 mg PO DAILY [facility] Last Admin: 04/10/24 08:33 Dose: 50 mg Simethicone (Simethicone 80 Mg Tab.Chew) 80 mg PO QIDWMHS PRN PRN Reason: Gas Trazodone HCl (Trazodone Hcl 50 Mg Tablet) 50 mg PO BEDTIME MRX1 PRN PRN Reason: Insomnia Last Admin: 04/09/24 20:44 Dose: 50 mg Allergies Allergies Allergy/AdvReac Type Severity Reaction Status Date / Time amoxicillin [AMOXICILLIN] Allergy Mild VOMITING/ABD Verified 09/10/23 19:44 PAIN Assessment & Plan Assessment & Plan (1) Schizoaffective disorder: Status: Acute Code(s): F25.9 - Schizoaffective disorder, unspecified (2) Hypothyroidism: Status: Acute Code(s): E03.9 - Hypothyroidism, unspecified (3) Type 2 diabetes mellitus: Status: Acute Code(s): E11.9 - Type 2 diabetes mellitus without complications (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 Continue with same medications. 2. Waiting for placement. Reason for continued inpatient stay Substantial Risk for: inability to function Time Spent With Patient Time: Total time managing care of this patient today ____ minutes.
[2024-04-10] MEDS: metFORMIN HCl ER 500 MG TAB.ER.24H 1000 MG PO (16:11)
[2024-04-10 19:41] VITALS: BP 122/69; PULSE 74; RESP 16; TEMP 36.7; O2SAT 97
[2024-04-10] MEDS: lamoTRIgine 100 MG TABLET 150 MG PO (20:02)
[2024-04-10] MEDS: traZODone HCL 50 MG TABLET PO (20:02)
[2024-04-10] MEDS: hydrOXYzine HCL 25 MG TABLET PO (20:02)
[2024-04-10] MEDS: Insulin Glargine,Hum.rec.anlog 100 UNIT/ML 10 ML VIAL 20 UNIT SUBCUT (20:02)
[2024-04-11] MEDS: Levothyroxine Sodium 150 MCG TABLET PO (06:08)
[2024-04-11 06:49] LABS: Glucose, Whole Blood 117 mg/dL (60-115)
[2024-04-11 08:00] VITALS: BP 123/71; PULSE 66; RESP 15; TEMP 36.8; O2SAT 98
[2024-04-11] MEDS: Sertraline HCL 50 MG TABLET PO (08:13)
[2024-04-11] MEDS: Memantine HCl 5 MG TABLET PO ×2 (08:14→20:47)
--- NOTE | 2024-04-11 08:33 | HO.PSYCHPN ---
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) Interim History: 59 yo reports he is fine except old age complaints getting out of bed joint aches in am- Denies si/hi/psychosis no s/e of medications- Medication Compliance: Yes Side effects from medications: No Attending Groups: Yes Review of Systems Acute medical concerns: No Medical Review of Systems: unchanged Mental Status Exam Mental Status Exam Patient Appearance: Unkempt Patient Orientation: Person, Place and Situation Level of Consciousness: Awake Patient Behavior: Appropriate, Cooperative and Good Eye Contact Mood Description: Calm Affect Description: Blunted Patient Cognition Impaired: Yes Ability to Follow Directions: Fair Speech Pattern: Clear 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: None Delusions: Not Present Thought Process: Intact and Goal Oriented Thought Content: positive for [place] and positive for Poverty of Content Judgement: Fair Diagnostics Vital Signs (24Hr): Vital Signs - 24 hr 04/10/24 19:41 04/11/24 08:00 Temperature 98.0 F 98.2 F Pulse Rate 74 66 Respiratory Rate 16 15 Blood Pressure 122/69 123/71 Pulse Oximetry 97 98 Oxygen Delivery Method Room Air Room Air BMI result Body Mass Index 31.4 Labs 09/10/23 20:00 04/09/24 08:54 Labs: Laboratory Results - last 48 hr 04/09/24 04/10/24 04/11/24 08:54 06:29 05:41 Creatinine 1.00 Estim Creat Clear Calc 90.5 Estimated GFR > 60 POC Glucose 103 117 H Imaging Radiology Impressions: ITS Impressions Brain MRI 09/19/23 20:33 IMPRESSION: 1. No demonstrated acute intracranial abnormalities. 2. Chronic mild to moderate nonspecific white matter changes, most notably in the deep white matter of the right frontal lobe. Mild to moderate generalized cerebral volume loss. Chest X-Ray 04/02/24 14:30 IMPRESSION: Moderate biapical pleural thickening. The lungs are clear. Electronically signed by: Matias Cormier MD 04/02/2024 03:12 PM [facility] Medications Medications Current Medications Acetaminophen (Acetaminophen 325 Mg Tablet) 650 mg PO Q6H PRN PRN Reason: Headache/Pain Mild Scale (1-3) Last Admin: 03/03/24 08:45 Dose: 650 mg Al Hydroxide/Mg Hydroxide (Magnesium Hydrox/Alum Hydrox 30 Ml Oral.Susp) 30 ml PO Q6H PRN PRN Reason: Heartburn/Nausea Last Admin: 11/27/23 10:48 Dose: 30 ml Aripiprazole (Aripiprazole Er 300 Mg Suser.Syr) 300 mg IM Q28D@0900 [facility] Last Admin: 04/01/24 12:16 Dose: 300 mg Benzocaine (Throat Lozenge, Medicated Lozenge) 1 lozenge MUCOUS MEM Q2H PRN PRN Reason: Sore Throat Last Admin: 12/30/23 20:59 Dose: 1 lozenge Benztropine Mesylate (Benztropine Mesylate 0.5 Mg Tablet) 0.5 mg PO TID PRN PRN Reason: Extrapyramidal Effects Glucose (Glucose Gel 15 Gm Gel..Gram.) 15 gm PO Q15M PRN; Protocol PRN Reason: per Hypoglycemia Standing Ord. Guaifenesin/Dextromethorphan (Guaifenesin Dm 100/10/5 Ml 5 Ml Syrup) 5 ml PO Q4H PRN PRN Reason: Cough Last Admin: 03/01/24 08:16 Dose: 5 ml Hydroxyzine HCl (Hydroxyzine Hcl 25 Mg Tablet) 25 mg PO Q6H PRN PRN Reason: Anxiety Last Admin: 04/10/24 20:02 Dose: 25 mg Insulin Glargine (Insulin Glargine,Hum.Rec.Anlog 100 Unit/Ml 10 Ml Vial) 20 unit SUBCUT BEDTIME [facility] Last Admin: 04/10/24 20:02 Dose: 20 unit Lamotrigine (Lamotrigine 100 Mg Tablet) 150 mg PO BEDTIME [facility] Last Admin: 04/10/24 20:02 Dose: 150 mg Levothyroxine Sodium (Levothyroxine Sodium 150 Mcg Tablet) 150 mcg PO DAILY@0630 [facility] Last Admin: 04/11/24 06:08 Dose: 150 mcg Magnesium Hydroxide (Milk Of Magnesia 30 Ml Oral.Susp) 30 ml PO DAILY PRN PRN Reason: Constipation Memantine (Memantine Hcl 5 Mg Tablet) 5 mg PO BID [facility] Last Admin: 04/11/24 08:14 Dose: 5 mg Metformin HCl (Metformin Hcl Er 500 Mg Tab.Er.24h) 1,000 mg PO DAILY@1700 [facility] Last Admin: 04/10/24 16:11 Dose: 1,000 mg Ondansetron HCl (Ondansetron Odt 8 Mg Tab.Rapdis) 8 mg TRANSLINGU Q8H PRN PRN Reason: Nausea and Vomiting Last Admin: 02/17/24 10:06 Dose: 8 mg Pseudoephedrine HCl (Pseudoephedrine Hcl 30 Mg Tablet) 30 mg PO Q4H PRN PRN Reason: Nasal Congestion Last Admin: 03/03/24 08:45 Dose: 30 mg Sertraline HCl (Sertraline Hcl 50 Mg Tablet) 50 mg PO DAILY [facility] Last Admin: 04/11/24 08:13 Dose: 50 mg Simethicone (Simethicone 80 Mg Tab.Chew) 80 mg PO QIDWMHS PRN PRN Reason: Gas Trazodone HCl (Trazodone Hcl 50 Mg Tablet) 50 mg PO BEDTIME MRX1 PRN PRN Reason: Insomnia Last Admin: 04/10/24 20:02 Dose: 50 mg Allergies Allergies Allergy/AdvReac Type Severity Reaction Status Date / Time amoxicillin [AMOXICILLIN] Allergy Mild VOMITING/ABD Verified 09/10/23 19:44 PAIN Assessment & Plan Assessment & Plan (1) Schizoaffective disorder: Status: Acute Code(s): F25.9 - Schizoaffective disorder, unspecified (2) Hypothyroidism: Status: Acute Code(s): E03.9 - Hypothyroidism, unspecified (3) Type 2 diabetes mellitus: Status: Acute Code(s): E11.9 - Type 2 diabetes mellitus without complications (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 Continue with same medications. 2. Waiting for placement. Reason for continued inpatient stay Substantial Risk for: inability to function Time Spent With Patient Time: Total time managing care of this patient today ____ minutes.
[2024-04-11] MEDS: metFORMIN HCl ER 500 MG TAB.ER.24H 1000 MG PO (16:04)
[2024-04-11 20:00] VITALS: BP 126/73; PULSE 79; RESP 18; TEMP 36.4; O2SAT 97
[2024-04-11] MEDS: lamoTRIgine 100 MG TABLET 150 MG PO (20:46)
[2024-04-11] MEDS: traZODone HCL 50 MG TABLET PO (20:47)
[2024-04-11] MEDS: hydrOXYzine HCL 25 MG TABLET PO (20:47)
[2024-04-11] MEDS: Insulin Glargine,Hum.rec.anlog 100 UNIT/ML 10 ML VIAL 20 UNIT SUBCUT (20:48)
[2024-04-12] MEDS: Levothyroxine Sodium 150 MCG TABLET PO (06:10)
[2024-04-12 06:13] LABS: Glucose, Whole Blood 174 mg/dL (60-115)
[2024-04-12 08:10] VITALS: BP 127/78; PULSE 75; RESP 18; TEMP 36.5; O2SAT 99
[2024-04-12] MEDS: Memantine HCl 5 MG TABLET PO ×2 (08:20→20:20)
[2024-04-12] MEDS: hydrOXYzine HCL 25 MG TABLET PO ×2 (08:20→22:35)
[2024-04-12] MEDS: Sertraline HCL 50 MG TABLET PO (08:20)
--- NOTE | 2024-04-12 11:44 | P.PNPSI_ITS ---
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 is staff and fee other patients food when he shouldn't- tries to get involved in others care no recent impulsive following patients and going into other rooms Medication Compliance: Yes Side effects from medications: No Attending Groups: Yes Review of Systems Acute medical concerns: No Medical Review of Systems: unchanged Mental Status Exam Mental Status Exam Patient Appearance: Disheveled Patient Orientation: Person, Place and Situation Level of Consciousness: Awake Patient Behavior: Appropriate and Cooperative Mood Description: Calm Affect Description: Blunted Speech Pattern: Clear 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: None Delusions: Not Present Thought Process: Intact Thought Content: positive for [place] Judgement: Poor Diagnostics Vital Signs (24Hr): Vital Signs - 24 hr 04/11/24 20:00 04/12/24 08:10 Temperature 97.5 F 97.7 F Pulse Rate 79 75 Respiratory Rate 18 18 Blood Pressure 126/73 127/78 Pulse Oximetry 97 99 Oxygen Delivery Method Room Air Room Air BMI result Body Mass Index 31.4 Labs 09/10/23 20:00 04/09/24 08:54 Labs: Laboratory Results - last 48 hr 04/11/24 04/12/24 05:41 05:57 POC Glucose 117 H 174 H Imaging Radiology Impressions: ITS Impressions Brain MRI 09/19/23 20:33 IMPRESSION: 1. No demonstrated acute intracranial abnormalities. 2. Chronic mild to moderate nonspecific white matter changes, most notably in the deep white matter of the right frontal lobe. Mild to moderate generalized cerebral volume loss. Chest X-Ray 04/02/24 14:30 IMPRESSION: Moderate biapical pleural thickening. The lungs are clear. Electronically signed by: Matias Cormier MD 04/02/2024 03:12 PM [facility] Medications Medications Current Medications Acetaminophen (Acetaminophen 325 Mg Tablet) 650 mg PO Q6H PRN PRN Reason: Headache/Pain Mild Scale (1-3) Last Admin: 03/03/24 08:45 Dose: 650 mg Al Hydroxide/Mg Hydroxide (Magnesium Hydrox/Alum Hydrox 30 Ml Oral.Susp) 30 ml PO Q6H PRN PRN Reason: Heartburn/Nausea Last Admin: 11/27/23 10:48 Dose: 30 ml Aripiprazole (Aripiprazole Er 300 Mg Suser.Syr) 300 mg IM Q28D@0900 [facility] Last Admin: 04/01/24 12:16 Dose: 300 mg Benzocaine (Throat Lozenge, Medicated Lozenge) 1 lozenge MUCOUS MEM Q2H PRN PRN Reason: Sore Throat Last Admin: 12/30/23 20:59 Dose: 1 lozenge Benztropine Mesylate (Benztropine Mesylate 0.5 Mg Tablet) 0.5 mg PO TID PRN PRN Reason: Extrapyramidal Effects Glucose (Glucose Gel 15 Gm Gel..Gram.) 15 gm PO Q15M PRN; Protocol PRN Reason: per Hypoglycemia Standing Ord. Guaifenesin/Dextromethorphan (Guaifenesin Dm 100/10/5 Ml 5 Ml Syrup) 5 ml PO Q4H PRN PRN Reason: Cough Last Admin: 03/01/24 08:16 Dose: 5 ml Hydroxyzine HCl (Hydroxyzine Hcl 25 Mg Tablet) 25 mg PO Q6H PRN PRN Reason: Anxiety Last Admin: 04/12/24 08:20 Dose: 25 mg Insulin Glargine (Insulin Glargine,Hum.Rec.Anlog 100 Unit/Ml 10 Ml Vial) 20 unit SUBCUT BEDTIME [facility] Last Admin: 04/11/24 20:48 Dose: 20 unit Lamotrigine (Lamotrigine 100 Mg Tablet) 150 mg PO BEDTIME [facility] Last Admin: 04/11/24 20:46 Dose: 150 mg Levothyroxine Sodium (Levothyroxine Sodium 150 Mcg Tablet) 150 mcg PO DAILY@0630 [facility] Last Admin: 04/12/24 06:10 Dose: 150 mcg Magnesium Hydroxide (Milk Of Magnesia 30 Ml Oral.Susp) 30 ml PO DAILY PRN PRN Reason: Constipation Memantine (Memantine Hcl 5 Mg Tablet) 5 mg PO BID [facility] Last Admin: 04/12/24 08:20 Dose: 5 mg Metformin HCl (Metformin Hcl Er 500 Mg Tab.Er.24h) 1,000 mg PO DAILY@1700 [facility] Last Admin: 04/11/24 16:04 Dose: 1,000 mg Ondansetron HCl (Ondansetron Odt 8 Mg Tab.Rapdis) 8 mg TRANSLINGU Q8H PRN PRN Reason: Nausea and Vomiting Last Admin: 02/17/24 10:06 Dose: 8 mg Pseudoephedrine HCl (Pseudoephedrine Hcl 30 Mg Tablet) 30 mg PO Q4H PRN PRN Reason: Nasal Congestion Last Admin: 03/03/24 08:45 Dose: 30 mg Sertraline HCl (Sertraline Hcl 50 Mg Tablet) 50 mg PO DAILY MANAS Last Admin: 04/12/24 08:20 Dose: 50 mg Simethicone (Simethicone 80 Mg Tab.Chew) 80 mg PO QIDWMHS PRN PRN Reason: Gas Trazodone HCl (Trazodone Hcl 50 Mg Tablet) 50 mg PO BEDTIME MRX1 PRN PRN Reason: Insomnia Last Admin: 04/11/24 20:47 Dose: 50 mg Allergies Allergies Allergy/AdvReac Type Severity Reaction Status Date / Time amoxicillin [AMOXICILLIN] Allergy Mild VOMITING/ABD Verified 09/10/23 19:44 PAIN Assessment & Plan Assessment & Plan (1) Schizoaffective disorder: Status: Acute Code(s): F25.9 - Schizoaffective disorder, unspecified (2) Hypothyroidism: Status: Acute Code(s): E03.9 - Hypothyroidism, unspecified (3) Type 2 diabetes mellitus: Status: Acute Code(s): E11.9 - Type 2 diabetes mellitus without complications (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 Continue with same medications. 2. Waiting for placement. Reason for continued inpatient stay Substantial Risk for: inability to function Time Spent With Patient Time: Total time managing care of this patient today ____ minutes.
[2024-04-12] MEDS: metFORMIN HCl ER 500 MG TAB.ER.24H 1000 MG PO (16:39)
[2024-04-12 20:00] VITALS: BP 129/69; PULSE 81; RESP 18; TEMP 36.3; O2SAT 98
[2024-04-12] MEDS: lamoTRIgine 100 MG TABLET 150 MG PO (20:20)
[2024-04-12] MEDS: Insulin Glargine,Hum.rec.anlog 100 UNIT/ML 10 ML VIAL 20 UNIT SUBCUT (20:22)
[2024-04-13] MEDS: Levothyroxine Sodium 150 MCG TABLET PO (06:25)
[2024-04-13 06:52] LABS: Glucose, Whole Blood 114 mg/dL (60-115)
[2024-04-13 08:00] VITALS: BP 126/72; PULSE 85; RESP 17; TEMP 36.3; O2SAT 96
[2024-04-13] MEDS: Memantine HCl 5 MG TABLET PO ×2 (09:23→20:35)
[2024-04-13] MEDS: Sertraline HCL 50 MG TABLET PO (09:23)
[2024-04-13] MEDS: metFORMIN HCl ER 500 MG TAB.ER.24H 1000 MG PO (17:24)
[2024-04-13 19:56] VITALS: BP 122/68; PULSE 71; RESP 12; TEMP 36.1; O2SAT 98
[2024-04-13] MEDS: Insulin Glargine,Hum.rec.anlog 100 UNIT/ML 10 ML VIAL 20 UNIT SUBCUT (20:35)
[2024-04-13] MEDS: lamoTRIgine 100 MG TABLET 150 MG PO (20:35)
[2024-04-13] MEDS: traZODone HCL 50 MG TABLET PO (20:36)
[2024-04-13] MEDS: hydrOXYzine HCL 25 MG TABLET PO (20:36)
--- NOTE | 2024-04-13 22:27 | P.PNPSI_ITS ---
Subjective Subjective Date of Service: 04/13/24 Reason For Visit: crisis Subjective Notes: Conditional Voluntary (by hcp) Healthcare Proxy: Yes Interim History: pt calm flat tries to help others at times intrusive more agreeable to d/c planning Medication Compliance: Yes Side effects from medications: No Attending Groups: Intermittent Review of Systems chronic cognitive concerns Medical Review of Systems: unchanged Mental Status Exam Mental Status Exam Patient Appearance: Disheveled and Appropriate Patient Orientation: Person, Place and Situation Level of Consciousness: Awake Patient Behavior: Appropriate and Cooperative Mood Description: Calm and Appropriate Affect Description: Blunted and Flat Speech Pattern: Clear 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: None Delusions: Not Present Thought Process: Intact and Slowed Thinking Thought Content: positive for [place] Judgement: Poor Judgement and Insight: impulse control intact Diagnostics Vital Signs (24Hr): Vital Signs - 24 hr 04/13/24 08:00 04/13/24 19:56 Temperature 97.4 F 97 F Pulse Rate 85 71 Respiratory Rate 17 12 Blood Pressure 126/72 122/68 Pulse Oximetry 96 98 Oxygen Delivery Method Room Air Room Air BMI result Body Mass Index 31.4 Labs 09/10/23 20:00 04/09/24 08:54 Labs: Laboratory Results - last 48 hr 04/09/24 04/09/24 04/10/24 06:29 08:54 06:29 Creatinine 1.00 Estim Creat Clear Calc 90.5 Estimated GFR > 60 POC Glucose 108 103 04/12/24 04/13/24 05:57 06:48 Creatinine Estim Creat Clear Calc Estimated GFR POC Glucose 174 H 114 Imaging Radiology Impressions: ITS Impressions Brain MRI 09/19/23 20:33 IMPRESSION: 1. No demonstrated acute intracranial abnormalities. 2. Chronic mild to moderate nonspecific white matter changes, most notably in the deep white matter of the right frontal lobe. Mild to moderate generalized cerebral volume loss. Chest X-Ray 04/02/24 14:30 IMPRESSION: Moderate biapical pleural thickening. The lungs are clear. Electronically signed by: Matias Cormier MD 04/02/2024 03:12 PM [facility] [place] Medications Medications Current Medications Acetaminophen (Acetaminophen 325 Mg Tablet) 650 mg PO Q6H PRN PRN Reason: Headache/Pain Mild Scale (1-3) Last Admin: 03/03/24 08:45 Dose: 650 mg Al Hydroxide/Mg Hydroxide (Magnesium Hydrox/Alum Hydrox 30 Ml Oral.Susp) 30 ml PO Q6H PRN PRN Reason: Heartburn/Nausea Last Admin: 11/27/23 10:48 Dose: 30 ml Aripiprazole (Aripiprazole Er 300 Mg Suser.Syr) 300 mg IM Q28D@0900 [facility] Last Admin: 04/01/24 12:16 Dose: 300 mg Benzocaine (Throat Lozenge, Medicated Lozenge) 1 lozenge MUCOUS MEM Q2H PRN PRN Reason: Sore Throat Last Admin: 12/30/23 20:59 Dose: 1 lozenge Benztropine Mesylate (Benztropine Mesylate 0.5 Mg Tablet) 0.5 mg PO TID PRN PRN Reason: Extrapyramidal Effects Glucose (Glucose Gel 15 Gm Gel..Gram.) 15 gm PO Q15M PRN; Protocol PRN Reason: per Hypoglycemia Standing Ord. Guaifenesin/Dextromethorphan (Guaifenesin Dm 100/10/5 Ml 5 Ml Syrup) 5 ml PO Q4H PRN PRN Reason: Cough Last Admin: 03/01/24 08:16 Dose: 5 ml Hydroxyzine HCl (Hydroxyzine Hcl 25 Mg Tablet) 25 mg PO Q6H PRN PRN Reason: Anxiety Last Admin: 04/13/24 20:36 Dose: 25 mg Insulin Glargine (Insulin Glargine,Hum.Rec.Anlog 100 Unit/Ml 10 Ml Vial) 20 unit SUBCUT BEDTIME [facility] Last Admin: 04/13/24 20:35 Dose: 20 unit Lamotrigine (Lamotrigine 100 Mg Tablet) 150 mg PO BEDTIME [facility] Last Admin: 04/13/24 20:35 Dose: 150 mg Levothyroxine Sodium (Levothyroxine Sodium 150 Mcg Tablet) 150 mcg PO DAILY@0630 [facility] Last Admin: 04/13/24 06:25 Dose: 150 mcg Magnesium Hydroxide (Milk Of Magnesia 30 Ml Oral.Susp) 30 ml PO DAILY PRN PRN Reason: Constipation Memantine (Memantine Hcl 5 Mg Tablet) 5 mg PO BID [facility] Last Admin: 04/13/24 20:35 Dose: 5 mg Metformin HCl (Metformin Hcl Er 500 Mg Tab.Er.24h) 1,000 mg PO DAILY@1700 [facility] Last Admin: 04/13/24 17:24 Dose: 1,000 mg Ondansetron HCl (Ondansetron Odt 8 Mg Tab.Rapdis) 8 mg TRANSLINGU Q8H PRN PRN Reason: Nausea and Vomiting Last Admin: 02/17/24 10:06 Dose: 8 mg Pseudoephedrine HCl (Pseudoephedrine Hcl 30 Mg Tablet) 30 mg PO Q4H PRN PRN Reason: Nasal Congestion Last Admin: 03/03/24 08:45 Dose: 30 mg Sertraline HCl (Sertraline Hcl 50 Mg Tablet) 50 mg PO DAILY MANAS Last Admin: 04/13/24 09:23 Dose: 50 mg Simethicone (Simethicone 80 Mg Tab.Chew) 80 mg PO QIDWMHS PRN PRN Reason: Gas Trazodone HCl (Trazodone Hcl 50 Mg Tablet) 50 mg PO BEDTIME MRX1 PRN PRN Reason: Insomnia Last Admin: 04/13/24 20:36 Dose: 50 mg Allergies Allergies Allergy/AdvReac Type Severity Reaction Status Date / Time amoxicillin [AMOXICILLIN] Allergy Mild VOMITING/ABD Verified 09/10/23 19:44 PAIN Assessment & Plan Assessment & Plan (1) Schizoaffective disorder: Status: Acute Code(s): F25.9 - Schizoaffective disorder, unspecified (2) Hypothyroidism: Status: Acute Code(s): E03.9 - Hypothyroidism, unspecified (3) Type 2 diabetes mellitus: Status: Acute Code(s): E11.9 - Type 2 diabetes mellitus without complications (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 Continue with same medications. 2. Waiting for placement. 04/13/23 d/c planning working at placement with structure Patient educated on: therapeutic strategies and medical condition Informed Consent: further education needed Reason for continued inpatient stay Substantial Risk for: inability to function, rapid decompensation and med/psych decompensation Time Spent With Patient Time: Total time managing care of this patient today ____ minutes.
[2024-04-14] MEDS: Levothyroxine Sodium 150 MCG TABLET PO (05:52)
[2024-04-14 06:54] LABS: Glucose, Whole Blood 121 mg/dL (60-115)
[2024-04-14 08:00] VITALS: BP 122/74; PULSE 73; RESP 18; TEMP 36.8; O2SAT 94
[2024-04-14] MEDS: Memantine HCl 5 MG TABLET PO ×2 (08:36→20:25)
[2024-04-14] MEDS: Sertraline HCL 50 MG TABLET PO (08:37)
--- NOTE | 2024-04-14 11:38 | HO.PSYCHPN ---
Subjective Subjective Date of Service: 04/14/24 Reason For Visit: crisis Subjective Notes: Conditional Voluntary Interim History: The nursing staff reported no changes in mental status cooperative and pleasant. On interview the patient denies new symptoms, waiting for placement. Mental Status Exam Mental Status Exam Patient Appearance: Appropriate Patient Orientation: Person and Situation Level of Consciousness: Awake and Appropriate Patient Behavior: Guarded and Passive Mood Description: Withdrawn Affect Description: Constricted Patient Cognition Impaired: Yes Ability to Follow Directions: Good Speech Pattern: Clear 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: None Delusions: Paranoid Ideation and Ideas of Reference Thought Process: Distracted and Slowed Thinking Thought Content: positive for [place] and positive for Poverty of Content Judgement: Fair Diagnostics Vital Signs (24Hr): Vital Signs - 24 hr 04/13/24 19:56 04/14/24 08:00 Temperature 97 F 98.2 F Pulse Rate 71 73 Respiratory Rate 12 18 Blood Pressure 122/68 122/74 Pulse Oximetry 98 94 Oxygen Delivery Method Room Air Room Air BMI result Body Mass Index 31.4 Labs 09/10/23 20:00 04/09/24 08:54 Labs: Laboratory Results - last 48 hr 04/09/24 04/09/24 04/10/24 06:29 08:54 06:29 Creatinine 1.00 Estim Creat Clear Calc 90.5 Estimated GFR > 60 POC Glucose 108 103 04/13/24 04/14/24 06:48 06:34 Creatinine Estim Creat Clear Calc Estimated GFR POC Glucose 114 121 H Imaging Radiology Impressions: ITS Impressions Brain MRI 09/19/23 20:33 IMPRESSION: 1. No demonstrated acute intracranial abnormalities. 2. Chronic mild to moderate nonspecific white matter changes, most notably in the deep white matter of the right frontal lobe. Mild to moderate generalized cerebral volume loss. Chest X-Ray 04/02/24 14:30 IMPRESSION: Moderate biapical pleural thickening. The lungs are clear. Electronically signed by: Matias Cormier MD 04/02/2024 03:12 [place] [facility] [place] Medications Current Medications Acetaminophen (Acetaminophen 325 Mg Tablet) 650 mg PO Q6H PRN PRN Reason: Headache/Pain Mild Scale (1-3) Last Admin: 03/03/24 08:45 Dose: 650 mg Al Hydroxide/Mg Hydroxide (Magnesium Hydrox/Alum Hydrox 30 Ml Oral.Susp) 30 ml PO Q6H PRN PRN Reason: Heartburn/Nausea Last Admin: 11/27/23 10:48 Dose: 30 ml Aripiprazole (Aripiprazole Er 300 Mg Suser.Syr) 300 mg IM Q28D@0900 [facility] Last Admin: 04/01/24 12:16 Dose: 300 mg Benzocaine (Throat Lozenge, Medicated Lozenge) 1 lozenge MUCOUS MEM Q2H PRN PRN Reason: Sore Throat Last Admin: 12/30/23 20:59 Dose: 1 lozenge Benztropine Mesylate (Benztropine Mesylate 0.5 Mg Tablet) 0.5 mg PO TID PRN PRN Reason: Extrapyramidal Effects Glucose (Glucose Gel 15 Gm Gel..Gram.) 15 gm PO Q15M PRN; Protocol PRN Reason: per Hypoglycemia Standing Ord. Guaifenesin/Dextromethorphan (Guaifenesin Dm 100/10/5 Ml 5 Ml Syrup) 5 ml PO Q4H PRN PRN Reason: Cough Last Admin: 03/01/24 08:16 Dose: 5 ml Hydroxyzine HCl (Hydroxyzine Hcl 25 Mg Tablet) 25 mg PO Q6H PRN PRN Reason: Anxiety Last Admin: 04/13/24 20:36 Dose: 25 mg Insulin Glargine (Insulin Glargine,Hum.Rec.Anlog 100 Unit/Ml 10 Ml Vial) 20 unit SUBCUT BEDTIME [facility] Last Admin: 04/13/24 20:35 Dose: 20 unit Lamotrigine (Lamotrigine 100 Mg Tablet) 150 mg PO BEDTIME [facility] Last Admin: 04/13/24 20:35 Dose: 150 mg Levothyroxine Sodium (Levothyroxine Sodium 150 Mcg Tablet) 150 mcg PO DAILY@0630 [facility] Last Admin: 04/14/24 05:52 Dose: 150 mcg Magnesium Hydroxide (Milk Of Magnesia 30 Ml Oral.Susp) 30 ml PO DAILY PRN PRN Reason: Constipation Memantine (Memantine Hcl 5 Mg Tablet) 5 mg PO BID [facility] Last Admin: 04/14/24 08:36 Dose: 5 mg Metformin HCl (Metformin Hcl Er 500 Mg Tab.Er.24h) 1,000 mg PO DAILY@1700 [facility] Last Admin: 04/13/24 17:24 Dose: 1,000 mg Ondansetron HCl (Ondansetron Odt 8 Mg Tab.Rapdis) 8 mg TRANSLINGU Q8H PRN PRN Reason: Nausea and Vomiting Last Admin: 02/17/24 10:06 Dose: 8 mg Pseudoephedrine HCl (Pseudoephedrine Hcl 30 Mg Tablet) 30 mg PO Q4H PRN PRN Reason: Nasal Congestion Last Admin: 03/03/24 08:45 Dose: 30 mg Sertraline HCl (Sertraline Hcl 50 Mg Tablet) 50 mg PO DAILY MANAS Last Admin: 04/14/24 08:37 Dose: 50 mg Simethicone (Simethicone 80 Mg Tab.Chew) 80 mg PO QIDWMHS PRN PRN Reason: Gas Trazodone HCl (Trazodone Hcl 50 Mg Tablet) 50 mg PO BEDTIME MRX1 PRN PRN Reason: Insomnia Last Admin: 04/13/24 20:36 Dose: 50 mg Allergies Allergies Allergy/AdvReac Type Severity Reaction Status Date / Time amoxicillin [AMOXICILLIN] Allergy Mild VOMITING/ABD Verified 09/10/23 19:44 PAIN Assessment & Plan Assessment & Plan (1) Schizoaffective disorder: Status: Acute Code(s): F25.9 - Schizoaffective disorder, unspecified (2) Hypothyroidism: Status: Acute Code(s): E03.9 - Hypothyroidism, unspecified (3) Type 2 diabetes mellitus: Status: Acute Code(s): E11.9 - Type 2 diabetes mellitus without complications (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 Continue with same medications. 2. Waiting for placement. Reason for continued inpatient stay Substantial Risk for: inability to function, rapid decompensation and med/psych decompensation Time Spent With Patient Time: Total time managing care of this patient today __20__ minutes.
[2024-04-14] MEDS: metFORMIN HCl ER 500 MG TAB.ER.24H 1000 MG PO (17:20)
[2024-04-14 20:00] VITALS: BP 130/64; PULSE 89; TEMP 36.6; O2SAT 96
[2024-04-14] MEDS: lamoTRIgine 100 MG TABLET 150 MG PO (20:25)
[2024-04-14] MEDS: Insulin Glargine,Hum.rec.anlog 100 UNIT/ML 10 ML VIAL 20 UNIT SUBCUT (20:25)
[2024-04-14] MEDS: traZODone HCL 50 MG TABLET PO (20:25)
[2024-04-15] MEDS: Levothyroxine Sodium 150 MCG TABLET PO (05:30)
[2024-04-15 07:01] LABS: Glucose, Whole Blood 96 mg/dL (60-115)
[2024-04-15] MEDS: Sertraline HCL 50 MG TABLET PO (07:59)
[2024-04-15 08:00] VITALS: BP 134/69; PULSE 80; RESP 18; TEMP 36.8; O2SAT 100
[2024-04-15] MEDS: Memantine HCl 5 MG TABLET PO ×2 (08:00→20:09)
--- NOTE | 2024-04-15 15:03 | P.PNPSI_ITS ---
Subjective Subjective Date of Service: 04/15/24 Reason For Visit: crisis Subjective Notes: Conditional Voluntary Interim History: The nursisng staff reported compliance with treatment, no new behaviors besides intrusiveness with peers that it is his usual behavior, redirectable. On interview, he denied new symptoms. Waiting for placement. Mental Status Exam Mental Status Exam Patient Appearance: Well Grooomed Patient Orientation: Person and Situation Level of Consciousness: Awake Patient Behavior: Guarded and Cooperative Mood Description: Calm Affect Description: Constricted Patient Cognition Impaired: Yes Ability to Follow Directions: Good Speech Pattern: Clear 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: None Delusions: Ideas of Reference Thought Process: Distracted and Slowed Thinking Thought Content: positive for [place] and positive for Poverty of Content Judgement: Fair Diagnostics Vital Signs (24Hr): Vital Signs - 24 hr 04/14/24 20:00 04/15/24 08:00 Temperature 97.9 F 98.2 F Pulse Rate 89 80 Respiratory Rate 18 Blood Pressure 130/64 134/69 Pulse Oximetry 96 100 Oxygen Delivery Method Room Air Room Air BMI result Body Mass Index 31.4 Labs 09/10/23 20:00 04/09/24 08:54 Labs: Laboratory Results - last 48 hr 04/14/24 04/15/24 06:34 06:43 POC Glucose 121 H 96 Imaging Radiology Impressions: ITS Impressions Brain MRI 09/19/23 20:33 IMPRESSION: 1. No demonstrated acute intracranial abnormalities. 2. Chronic mild to moderate nonspecific white matter changes, most notably in the deep white matter of the right frontal lobe. Mild to moderate generalized cerebral volume loss. Chest X-Ray 04/02/24 14:30 IMPRESSION: Moderate biapical pleural thickening. The lungs are clear. Electronically signed by: Matias Cormier MD 04/02/2024 03:12 PM [facility] [place] Medications Current Medications Acetaminophen (Acetaminophen 325 Mg Tablet) 650 mg PO Q6H PRN PRN Reason: Headache/Pain Mild Scale (1-3) Last Admin: 03/03/24 08:45 Dose: 650 mg Al Hydroxide/Mg Hydroxide (Magnesium Hydrox/Alum Hydrox 30 Ml Oral.Susp) 30 ml PO Q6H PRN PRN Reason: Heartburn/Nausea Last Admin: 11/27/23 10:48 Dose: 30 ml Aripiprazole (Aripiprazole Er 300 Mg Suser.Syr) 300 mg IM Q28D@0900 [facility] Last Admin: 04/01/24 12:16 Dose: 300 mg Benzocaine (Throat Lozenge, Medicated Lozenge) 1 lozenge MUCOUS MEM Q2H PRN PRN Reason: Sore Throat Last Admin: 12/30/23 20:59 Dose: 1 lozenge Benztropine Mesylate (Benztropine Mesylate 0.5 Mg Tablet) 0.5 mg PO TID PRN PRN Reason: Extrapyramidal Effects Glucose (Glucose Gel 15 Gm Gel..Gram.) 15 gm PO Q15M PRN; Protocol PRN Reason: per Hypoglycemia Standing Ord. Guaifenesin/Dextromethorphan (Guaifenesin Dm 100/10/5 Ml 5 Ml Syrup) 5 ml PO Q4H PRN PRN Reason: Cough Last Admin: 03/01/24 08:16 Dose: 5 ml Hydroxyzine HCl (Hydroxyzine Hcl 25 Mg Tablet) 25 mg PO Q6H PRN PRN Reason: Anxiety Last Admin: 04/13/24 20:36 Dose: 25 mg Insulin Glargine (Insulin Glargine,Hum.Rec.Anlog 100 Unit/Ml 10 Ml Vial) 20 unit SUBCUT BEDTIME [facility] Last Admin: 04/14/24 20:25 Dose: 20 unit Lamotrigine (Lamotrigine 100 Mg Tablet) 150 mg PO BEDTIME [facility] Last Admin: 04/14/24 20:25 Dose: 150 mg Levothyroxine Sodium (Levothyroxine Sodium 150 Mcg Tablet) 150 mcg PO DAILY@0630 [facility] Last Admin: 04/15/24 05:30 Dose: 150 mcg Magnesium Hydroxide (Milk Of Magnesia 30 Ml Oral.Susp) 30 ml PO DAILY PRN PRN Reason: Constipation Memantine (Memantine Hcl 5 Mg Tablet) 5 mg PO BID [facility] Last Admin: 04/15/24 08:00 Dose: 5 mg Metformin HCl (Metformin Hcl Er 500 Mg Tab.Er.24h) 1,000 mg PO DAILY@1700 [facility] Last Admin: 04/14/24 17:20 Dose: 1,000 mg Ondansetron HCl (Ondansetron Odt 8 Mg Tab.Rapdis) 8 mg TRANSLINGU Q8H PRN PRN Reason: Nausea and Vomiting Last Admin: 02/17/24 10:06 Dose: 8 mg Pseudoephedrine HCl (Pseudoephedrine Hcl 30 Mg Tablet) 30 mg PO Q4H PRN PRN Reason: Nasal Congestion Last Admin: 03/03/24 08:45 Dose: 30 mg Sertraline HCl (Sertraline Hcl 50 Mg Tablet) 50 mg PO DAILY [facility]NAS Last Admin: 04/15/24 07:59 Dose: 50 mg Simethicone (Simethicone 80 Mg Tab.Chew) 80 mg PO QIDWMHS PRN PRN Reason: Gas Trazodone HCl (Trazodone Hcl 50 Mg Tablet) 50 mg PO BEDTIME MRX1 PRN PRN Reason: Insomnia Last Admin: 04/14/24 20:25 Dose: 50 mg Allergies Allergies Allergy/AdvReac Type Severity Reaction Status Date / Time amoxicillin [AMOXICILLIN] Allergy Mild VOMITING/ABD Verified 09/10/23 19:44 PAIN Assessment & Plan Assessment & Plan (1) Schizoaffective disorder: Status: Acute Code(s): F25.9 - Schizoaffective disorder, unspecified (2) Hypothyroidism: Status: Acute Code(s): E03.9 - Hypothyroidism, unspecified (3) Type 2 diabetes mellitus: Status: Acute Code(s): E11.9 - Type 2 diabetes mellitus without complications (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 Continue with same medications. 2. Waiting for placement. Reason for continued inpatient stay Substantial Risk for: inability to function, rapid decompensation and med/psych decompensation Time Spent With Patient Time: Total time managing care of this patient today __20__ minutes.
[2024-04-15] MEDS: metFORMIN HCl ER 500 MG TAB.ER.24H 1000 MG PO (16:19)
[2024-04-15 20:00] VITALS: BP 143/64; PULSE 86; RESP 18; TEMP 36.3; O2SAT 97
[2024-04-15] MEDS: traZODone HCL 50 MG TABLET PO (20:09)
[2024-04-15] MEDS: Insulin Glargine,Hum.rec.anlog 100 UNIT/ML 10 ML VIAL 20 UNIT SUBCUT (20:09)
[2024-04-15] MEDS: lamoTRIgine 100 MG TABLET 150 MG PO (20:09)
[2024-04-16] MEDS: Levothyroxine Sodium 150 MCG TABLET PO (06:25)
[2024-04-16 06:59] LABS: Glucose, Whole Blood 95 mg/dL (60-115)
[2024-04-16] MEDS: Memantine HCl 5 MG TABLET PO ×2 (09:54→21:20)
[2024-04-16] MEDS: Sertraline HCL 50 MG TABLET PO (09:54)
[2024-04-16 09:55] VITALS: BP 110/68; PULSE 80; RESP 20; TEMP 527.7; TEMP 982; O2SAT 96
[2024-04-16 10:15] LABS: Creatinine Clr Calc Pharmacy 96.2; Estimated Glomerular Filt Rate > 60
--- NOTE | 2024-04-16 12:18 | P.PNPSI_ITS ---
Subjective Subjective Date of Service: 04/16/24 Reason For Visit: crisis Subjective Notes: Conditional Voluntary Interim History: The nursing staff reported no changes in his mental status compliant with treatment. On interview the patient denies new symptoms, waiting for placement Mental Status Exam Mental Status Exam Patient Appearance: Well Grooomed and Appropriate Patient Orientation: Person and Situation Level of Consciousness: Awake and Appropriate Patient Behavior: Guarded and Passive Mood Description: Calm Affect Description: Constricted Patient Cognition Impaired: Yes Ability to Follow Directions: Good Speech Pattern: Clear 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: None Delusions: Not Present Thought Process: Distracted and Slowed Thinking Thought Content: positive for [place] and positive for Poverty of Content Judgement: Fair Diagnostics Vital Signs (24Hr): Vital Signs - 24 hr 04/15/24 20:00 04/16/24 09:55 Temperature 97.4 F 982 F H Pulse Rate 86 80 Respiratory Rate 18 20 Blood Pressure 143/64 H 110/68 Pulse Oximetry 97 96 Oxygen Delivery Method Room Air Room Air BMI result Body Mass Index 31.4 Labs 09/10/23 20:00 04/16/24 09:51 Labs: Laboratory Results - last 48 hr 04/15/24 04/16/24 04/16/24 06:43 06:46 09:51 Creatinine 0.94 Estim Creat Clear Calc 96.2 Estimated GFR > 60 POC Glucose 96 95 Imaging Radiology Impressions: ITS Impressions Brain MRI 09/19/23 20:33 IMPRESSION: 1. No demonstrated acute intracranial abnormalities. 2. Chronic mild to moderate nonspecific white matter changes, most notably in the deep white matter of the right frontal lobe. Mild to moderate generalized cerebral volume loss. Chest X-Ray 04/02/24 14:30 IMPRESSION: Moderate biapical pleural thickening. The lungs are clear. Electronically signed by: Matias Cormier MD 04/02/2024 03:12 [place] [facility] [place] Medic[place] Current Medications Acetaminophen (Acetaminophen 325 Mg Tablet) 650 mg PO Q6H PRN PRN Reason: Headache/Pain Mild Scale (1-3) Last Admin: 03/03/24 08:45 Dose: 650 mg Al Hydroxide/Mg Hydroxide (Magnesium Hydrox/Alum Hydrox 30 Ml Oral.Susp) 30 ml PO Q6H PRN PRN Reason: Heartburn/Nausea Last Admin: 11/27/23 10:48 Dose: 30 ml Aripiprazole (Aripiprazole Er 300 Mg Suser.Syr) 300 mg IM Q28D@0900 [facility] Last Admin: 04/01/24 12:16 Dose: 300 mg Benzocaine (Throat Lozenge, Medicated Lozenge) 1 lozenge MUCOUS MEM Q2H PRN PRN Reason: Sore Throat Last Admin: 12/30/23 20:59 Dose: 1 lozenge Benztropine Mesylate (Benztropine Mesylate 0.5 Mg Tablet) 0.5 mg PO TID PRN PRN Reason: Extrapyramidal Effects Glucose (Glucose Gel 15 Gm Gel..Gram.) 15 gm PO Q15M PRN; Protocol PRN Reason: per Hypoglycemia Standing Ord. Guaifenesin/Dextromethorphan (Guaifenesin Dm 100/10/5 Ml 5 Ml Syrup) 5 ml PO Q4H PRN PRN Reason: Cough Last Admin: 03/01/24 08:16 Dose: 5 ml Hydroxyzine HCl (Hydroxyzine Hcl 25 Mg Tablet) 25 mg PO Q6H PRN PRN Reason: Anxiety Last Admin: 04/13/24 20:36 Dose: 25 mg Insulin Glargine (Insulin Glargine,Hum.Rec.Anlog 100 Unit/Ml 10 Ml Vial) 20 unit SUBCUT BEDTIME [facility] Last Admin: 04/15/24 20:09 Dose: 20 unit Lamotrigine (Lamotrigine 100 Mg Tablet) 150 mg PO BEDTIME [facility] Last Admin: 04/15/24 20:09 Dose: 150 mg Levothyroxine Sodium (Levothyroxine Sodium 150 Mcg Tablet) 150 mcg PO DAILY@0630 [facility] Last Admin: 04/16/24 06:25 Dose: 150 mcg Magnesium Hydroxide (Milk Of Magnesia 30 Ml Oral.Susp) 30 ml PO DAILY PRN PRN Reason: Constipation Memantine (Memantine Hcl 5 Mg Tablet) 5 mg PO BID [facility] Last Admin: 04/16/24 09:54 Dose: 5 mg Metformin HCl (Metformin Hcl Er 500 Mg Tab.Er.24h) 1,000 mg PO DAILY@1700 [facility] Last Admin: 04/15/24 16:19 Dose: 1,000 mg Ondansetron HCl (Ondansetron Odt 8 Mg Tab.Rapdis) 8 mg TRANSLINGU Q8H PRN PRN Reason: Nausea and Vomiting Last Admin: 02/17/24 10:06 Dose: 8 mg Pseudoephedrine HCl (Pseudoephedrine Hcl 30 Mg Tablet) 30 mg PO Q4H PRN PRN Reason: Nasal Congestion Last Admin: 03/03/24 08:45 Dose: 30 mg Sertraline HCl (Sertraline Hcl 50 Mg Tablet) 50 mg PO DAILY [facility] Last Admin: 04/16/24 09:54 Dose: 50 mg Simethicone (Simethicone 80 Mg Tab.Chew) 80 mg PO QIDWMHS PRN PRN Reason: Gas Trazodone HCl (Trazodone Hcl 50 Mg Tablet) 50 mg PO BEDTIME MRX1 PRN PRN Reason: Insomnia Last Admin: 04/15/24 20:09 Dose: 50 mg Allergies Allergies Allergy/AdvReac Type Severity Reaction Status Date / Time amoxicillin [AMOXICILLIN] Allergy Mild VOMITING/ABD Verified 09/10/23 19:44 PAIN Assessment & Plan Assessment & Plan (1) Schizoaffective disorder: Status: Acute Code(s): F25.9 - Schizoaffective disorder, unspecified (2) Hypothyroidism: Status: Acute Code(s): E03.9 - Hypothyroidism, unspecified (3) Type 2 diabetes mellitus: Status: Acute Code(s): E11.9 - Type 2 diabetes mellitus without complications (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 Continue with same medications. 2. Waiting for placement. Reason for continued inpatient stay Substantial Risk for: inability to function, rapid decompensation and med/psych decompensation Time Spent With Patient Time: Total time managing care of this patient today __20__ minutes.
[2024-04-16] MEDS: metFORMIN HCl ER 500 MG TAB.ER.24H 1000 MG PO (16:54)
[2024-04-16 20:00] VITALS: BP 130/73; PULSE 76; RESP 16; TEMP 36.4; O2SAT 98
[2024-04-16] MEDS: lamoTRIgine 100 MG TABLET 150 MG PO (21:20)
[2024-04-16] MEDS: Insulin Glargine,Hum.rec.anlog 100 UNIT/ML 10 ML VIAL 20 UNIT SUBCUT (21:21)
[2024-04-17] MEDS: Levothyroxine Sodium 150 MCG TABLET PO (05:34)
[2024-04-17 05:48] LABS: Glucose, Whole Blood 114 mg/dL (60-115)
[2024-04-17 08:10] VITALS: BP 135/79; PULSE 77; RESP 18; O2SAT 97
[2024-04-17] MEDS: Memantine HCl 5 MG TABLET PO ×2 (08:13→20:47)
[2024-04-17] MEDS: Sertraline HCL 50 MG TABLET PO (08:13)
--- NOTE | 2024-04-17 13:28 | P.PNPSI_ITS ---
Subjective Subjective Date of Service: 04/17/24 Reason For Visit: crisis Subjective Notes: Conditional Voluntary Interim History: The nursing staff reported no changes in mental status. On interview the patient denies new symptoms, waiting for placement. Mental Status Exam Mental Status Exam Patient Appearance: Appropriate Patient Orientation: Person and Situation Level of Consciousness: Awake and Appropriate Patient Behavior: Guarded and Passive Mood Description: Withdrawn Affect Description: Constricted Patient Cognition Impaired: Yes Ability to Follow Directions: Good Speech Pattern: Clear 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: None Delusions: Paranoid Ideation and Ideas of Reference Thought Process: Distracted and Slowed Thinking Thought Content: positive for [place] and positive for Poverty of Content Judgement: Fair Diagnostics Vital Signs (24Hr): Vital Signs - 24 hr 04/16/24 20:00 04/17/24 08:10 Temperature 97.5 F Pulse Rate 76 77 Respiratory Rate 16 18 Blood Pressure 130/73 135/79 Pulse Oximetry 98 97 Oxygen Delivery Method Room Air BMI result Body Mass Index 31.4 Labs 09/10/23 20:00 04/16/24 09:51 Labs: Laboratory Results - last 48 hr 04/16/24 04/16/24 04/17/24 06:46 09:51 05:36 Creatinine 0.94 Estim Creat Clear Calc 96.2 Estimated GFR > 60 POC Glucose 95 114 Imaging Radiology Impressions: ITS Impressions Brain MRI 09/19/23 20:33 IMPRESSION: 1. No demonstrated acute intracranial abnormalities. 2. Chronic mild to moderate nonspecific white matter changes, most notably in the deep white matter of the right frontal lobe. Mild to moderate generalized cerebral volume loss. Chest X-Ray 04/02/24 14:30 IMPRESSION: Moderate biapical pleural thickening. The lungs are clear. Electronically signed by: Matias Cormier MD 04/02/2024 03:12 PM [facility] Medications Medications Current Medications Acetaminophen (Acetaminophen 325 Mg Tablet) 650 mg PO Q6H PRN PRN Reason: Headache/Pain Mild Scale (1-3) Last Admin: 03/03/24 08:45 Dose: 650 mg Al Hydroxide/Mg Hydroxide (Magnesium Hydrox/Alum Hydrox 30 Ml Oral.Susp) 30 ml PO Q6H PRN PRN Reason: Heartburn/Nausea Last Admin: 11/27/23 10:48 Dose: 30 ml Aripiprazole (Aripiprazole Er 300 Mg Suser.Syr) 300 mg IM Q28D@0900 [facility] Last Admin: 04/01/24 12:16 Dose: 300 mg Benzocaine (Throat Lozenge, Medicated Lozenge) 1 lozenge MUCOUS MEM Q2H PRN PRN Reason: Sore Throat Last Admin: 12/30/23 20:59 Dose: 1 lozenge Benztropine Mesylate (Benztropine Mesylate 0.5 Mg Tablet) 0.5 mg PO TID PRN PRN Reason: Extrapyramidal Effects Glucose (Glucose Gel 15 Gm Gel..Gram.) 15 gm PO Q15M PRN; Protocol PRN Reason: per Hypoglycemia Standing Ord. Guaifenesin/Dextromethorphan (Guaifenesin Dm 100/10/5 Ml 5 Ml Syrup) 5 ml PO Q4H PRN PRN Reason: Cough Last Admin: 03/01/24 08:16 Dose: 5 ml Hydroxyzine HCl (Hydroxyzine Hcl 25 Mg Tablet) 25 mg PO Q6H PRN PRN Reason: Anxiety Last Admin: 04/13/24 20:36 Dose: 25 mg Insulin Glargine (Insulin Glargine,Hum.Rec.Anlog 100 Unit/Ml 10 Ml Vial) 20 unit SUBCUT BEDTIME [facility] Last Admin: 04/16/24 21:21 Dose: 20 unit Lamotrigine (Lamotrigine 100 Mg Tablet) 150 mg PO BEDTIME [facility] Last Admin: 04/16/24 21:20 Dose: 150 mg Levothyroxine Sodium (Levothyroxine Sodium 150 Mcg Tablet) 150 mcg PO DAILY@0630 [facility] Last Admin: 04/17/24 05:34 Dose: 150 mcg Magnesium Hydroxide (Milk Of Magnesia 30 Ml Oral.Susp) 30 ml PO DAILY PRN PRN Reason: Constipation Memantine (Memantine Hcl 5 Mg Tablet) 5 mg PO BID [facility] Last Admin: 04/17/24 08:13 Dose: 5 mg Metformin HCl (Metformin Hcl Er 500 Mg Tab.Er.24h) 1,000 mg PO DAILY@1700 [facility] Last Admin: 04/16/24 16:54 Dose: 1,000 mg Ondansetron HCl (Ondansetron Odt 8 Mg Tab.Rapdis) 8 mg TRANSLINGU Q8H PRN PRN Reason: Nausea and Vomiting Last Admin: 02/17/24 10:06 Dose: 8 mg Pseudoephedrine HCl (Pseudoephedrine Hcl 30 Mg Tablet) 30 mg PO Q4H PRN PRN Reason: Nasal Congestion Last Admin: 03/03/24 08:45 Dose: 30 mg Sertraline HCl (Sertraline Hcl 50 Mg Tablet) 50 mg PO DAILY [facility] Last Admin: 04/17/24 08:13 Dose: 50 mg Simethicone (Simethicone 80 Mg Tab.Chew) 80 mg PO QIDWMHS PRN PRN Reason: Gas Trazodone HCl (Trazodone Hcl 50 Mg Tablet) 50 mg PO BEDTIME MRX1 PRN PRN Reason: Insomnia Last Admin: 04/15/24 20:09 Dose: 50 mg Allergies Allergies Allergy/AdvReac Type Severity Reaction Status Date / Time amoxicillin [AMOXICILLIN] Allergy Mild VOMITING/ABD Verified 09/10/23 19:44 PAIN Assessment & Plan Assessment & Plan (1) Schizoaffective disorder: Status: Acute Code(s): F25.9 - Schizoaffective disorder, unspecified (2) Hypothyroidism: Status: Acute Code(s): E03.9 - Hypothyroidism, unspecified (3) Type 2 diabetes mellitus: Status: Acute Code(s): E11.9 - Type 2 diabetes mellitus without complications (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 Continue with same medications. 2. Waiting for placement. Reason for continued inpatient stay Substantial Risk for: inability to function, rapid decompensation and med/psych decompensation Time Spent With Patient Time: Total time managing care of this patient today _20___ minutes.
[2024-04-17] MEDS: metFORMIN HCl ER 500 MG TAB.ER.24H 1000 MG PO (17:24)
[2024-04-17 20:00] VITALS: BP 132/73; PULSE 86; RESP 16; TEMP 36.9; O2SAT 97
[2024-04-17] MEDS: lamoTRIgine 100 MG TABLET 150 MG PO (20:47)
[2024-04-17] MEDS: Insulin Glargine,Hum.rec.anlog 100 UNIT/ML 10 ML VIAL 20 UNIT SUBCUT (21:17)
[2024-04-18] MEDS: Levothyroxine Sodium 150 MCG TABLET PO (05:50)
[2024-04-18 05:59] LABS: Glucose, Whole Blood 115 mg/dL (60-115)
[2024-04-18 08:00] VITALS: BP 101/58; PULSE 76; RESP 18; TEMP 36.8; O2SAT 97
[2024-04-18] MEDS: Sertraline HCL 50 MG TABLET PO (08:54)
[2024-04-18] MEDS: Memantine HCl 5 MG TABLET PO ×2 (08:54→20:19)
--- NOTE | 2024-04-18 11:01 | HO.PSYCHPN ---
Subjective Subjective Date of Service: 04/18/24 Reason For Visit: crisis Subjective Notes: Conditional Voluntary Interim History: Patient was seen and discussed in rounds today. Records and plans were reviewed. He has been mostly stable, awaiting placement. He has been more intrusive and at times not easy to redirect. No dangerous behaviors. Eating and sleeping adequately. No changes were made today Review of Systems Review of Systems Yes all other systems are reviewed and are negative Mental Status Exam Mental Status Exam Patient Appearance: Appropriate Patient Orientation: Person and Situation Level of Consciousness: Awake and Appropriate Patient Behavior: Guarded and Passive Mood Description: Withdrawn Affect Description: Constricted Patient Cognition Impaired: Yes Ability to Follow Directions: Good Speech Pattern: Clear 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: None Delusions: Paranoid Ideation and Ideas of Reference Thought Process: Distracted and Slowed Thinking Thought Content: positive for [place] and positive for Poverty of Content Judgement: Fair Diagnostics Vital Signs (24Hr): Vital Signs - 24 hr 04/17/24 20:00 04/18/24 08:00 Temperature 98.4 F 98.2 F Pulse Rate 86 76 Respiratory Rate 16 18 Blood Pressure 132/73 101/58 L Pulse Oximetry 97 97 Oxygen Delivery Method Room Air Room Air BMI result Body Mass Index 31.4 Labs 09/10/23 20:00 04/16/24 09:51 Labs: Laboratory Results - last 48 hr 04/17/24 04/18/24 05:36 05:52 POC Glucose 114 115 Imaging Radiology Impressions: ITS Impressions Brain MRI 09/19/23 20:33 IMPRESSION: 1. No demonstrated acute intracranial abnormalities. 2. Chronic mild to moderate nonspecific white matter changes, most notably in the deep white matter of the right frontal lobe. Mild to moderate generalized cerebral volume loss. Chest X-Ray 04/02/24 14:30 IMPRESSION: Moderate biapical pleural thickening. The lungs are clear. Electronically signed by: Matias Cormier MD 04/02/2024 03:[address] [facility] [place] Medications Medications Current Medications Acetaminophen (Acetaminophen 325 Mg Tablet) 650 mg PO Q6H PRN PRN Reason: Headache/Pain Mild Scale (1-3) Last Admin: 03/03/24 08:45 Dose: 650 mg Al Hydroxide/Mg Hydroxide (Magnesium Hydrox/Alum Hydrox 30 Ml Oral.Susp) 30 ml PO Q6H PRN PRN Reason: Heartburn/Nausea Last Admin: 11/27/23 10:48 Dose: 30 ml Aripiprazole (Aripiprazole Er 300 Mg Suser.Syr) 300 mg IM Q28D@0900 [facility] Last Admin: 04/01/24 12:16 Dose: 300 mg Benzocaine (Throat Lozenge, Medicated Lozenge) 1 lozenge MUCOUS MEM Q2H PRN PRN Reason: Sore Throat Last Admin: 12/30/23 20:59 Dose: 1 lozenge Benztropine Mesylate (Benztropine Mesylate 0.5 Mg Tablet) 0.5 mg PO TID PRN PRN Reason: Extrapyramidal Effects Glucose (Glucose Gel 15 Gm Gel..Gram.) 15 gm PO Q15M PRN; Protocol PRN Reason: per Hypoglycemia Standing Ord. Guaifenesin/Dextromethorphan (Guaifenesin Dm 100/10/5 Ml 5 Ml Syrup) 5 ml PO Q4H PRN PRN Reason: Cough Last Admin: 03/01/24 08:16 Dose: 5 ml Hydroxyzine HCl (Hydroxyzine Hcl 25 Mg Tablet) 25 mg PO Q6H PRN PRN Reason: Anxiety Last Admin: 04/13/24 20:36 Dose: 25 mg Insulin Glargine (Insulin Glargine,Hum.Rec.Anlog 100 Unit/Ml 10 Ml Vial) 20 unit SUBCUT BEDTIME [facility] Last Admin: 04/17/24 21:17 Dose: 20 unit Lamotrigine (Lamotrigine 100 Mg Tablet) 150 mg PO BEDTIME [facility] Last Admin: 04/17/24 20:47 Dose: 150 mg Magnesium Hydroxide (Milk Of Magnesia 30 Ml Oral.Susp) 30 ml PO DAILY PRN PRN Reason: Constipation Memantine (Memantine Hcl 5 Mg Tablet) 5 mg PO BID [facility] Last Admin: 04/18/24 08:54 Dose: 5 mg Metformin HCl (Metformin Hcl Er 500 Mg Tab.Er.24h) 1,000 mg PO DAILY@1700 [facility] Last Admin: 04/17/24 17:24 Dose: 1,000 mg Ondansetron HCl (Ondansetron Odt 8 Mg Tab.Rapdis) 8 mg TRANSLINGU Q8H PRN PRN Reason: Nausea and Vomiting Last Admin: 02/17/24 10:06 Dose: 8 mg Pseudoephedrine HCl (Pseudoephedrine Hcl 30 Mg Tablet) 30 mg PO Q4H PRN PRN Reason: Nasal Congestion Last Admin: 03/03/24 08:45 Dose: 30 mg Sertraline HCl (Sertraline Hcl 50 Mg Tablet) 50 mg PO DAILY [facility] Last Admin: 04/18/24 08:54 Dose: 50 mg Simethicone (Simethicone 80 Mg Tab.Chew) 80 mg PO QIDWMHS PRN PRN Reason: Gas Trazodone HCl (Trazodone Hcl 50 Mg Tablet) 50 mg PO BEDTIME MRX1 PRN PRN Reason: Insomnia Last Admin: 04/15/24 20:09 Dose: 50 mg Allergies Allergies Allergy/AdvReac Type Severity Reaction Status Date / Time amoxicillin [AMOXICILLIN] Allergy Mild VOMITING/ABD Verified 09/10/23 19:44 PAIN Assessment & Plan Assessment & Plan (1) Schizoaffective disorder: Status: Acute Code(s): F25.9 - Schizoaffective disorder, unspecified (2) Hypothyroidism: Status: Acute Code(s): E03.9 - Hypothyroidism, unspecified (3) Type 2 diabetes mellitus: Status: Acute Code(s): E11.9 - Type 2 diabetes mellitus without complications (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 Continue with same medications. 2. Waiting for placement. 04/18 continue current plans and regimen Reason for continued inpatient stay Substantial Risk for: med/psych decompensation Time Spent With Patient Time: Total time managing care of this patient today ____ minutes.
[2024-04-18] MEDS: metFORMIN HCl ER 500 MG TAB.ER.24H 1000 MG PO (16:47)
[2024-04-18 20:00] VITALS: BP 137/66; PULSE 77; RESP 16; TEMP 37.1; O2SAT 96
[2024-04-18] MEDS: lamoTRIgine 100 MG TABLET 150 MG PO (20:19)
[2024-04-18] MEDS: Insulin Glargine,Hum.rec.anlog 100 UNIT/ML 10 ML VIAL 20 UNIT SUBCUT (20:20)
[2024-04-19] MEDS: Levothyroxine Sodium 150 MCG TABLET PO (05:56)
[2024-04-19 06:18] LABS: Glucose, Whole Blood 110 mg/dL (60-115)
[2024-04-19 08:00] VITALS: BP 140/80; PULSE 74; RESP 18; TEMP 36.4; O2SAT 97
[2024-04-19] MEDS: Memantine HCl 5 MG TABLET PO ×2 (08:10→20:42)
[2024-04-19] MEDS: Sertraline HCL 50 MG TABLET PO (08:11)
--- NOTE | 2024-04-19 11:03 | P.PNPSI_ITS ---
Subjective Subjective Date of Service: 04/19/24 Reason For Visit: crisis Subjective Notes: Conditional Voluntary Interim History: Patient was seen and discussed in rounds today. Records and plans were reviewed. He is doing better and has been much less intrusive and redirectable. Eating and sleeping adequately. No overt depression. No SI. No changes were made today Review of Systems Review of Systems Yes all other systems are reviewed and are negative Mental Status Exam Mental Status Exam Patient Appearance: Appropriate Patient Orientation: Person and Situation Level of Consciousness: Awake and Appropriate Patient Behavior: Guarded and Passive Mood Description: Withdrawn Affect Description: Constricted Patient Cognition Impaired: Yes Ability to Follow Directions: Good Speech Pattern: Clear 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: None Delusions: Paranoid Ideation and Ideas of Reference Thought Process: Distracted and Slowed Thinking Thought Content: positive for [place] and positive for Poverty of Content Judgement: Fair Diagnostics Vital Signs (24Hr): Vital Signs - 24 hr 04/18/24 20:00 04/19/24 08:00 Temperature 98.7 F 97.5 F Pulse Rate 77 74 Respiratory Rate 16 18 Blood Pressure 137/66 140/80 H Pulse Oximetry 96 97 Oxygen Delivery Method Room Air Room Air BMI result Body Mass Index 31.4 Labs 09/10/23 20:00 04/16/24 09:51 Labs: Laboratory Results - last 48 hr 04/18/24 04/19/24 05:52 05:58 POC Glucose 115 110 Imaging Radiology Impressions: ITS Impressions Brain MRI 09/19/23 20:33 IMPRESSION: 1. No demonstrated acute intracranial abnormalities. 2. Chronic mild to moderate nonspecific white matter changes, most notably in the deep white matter of the right frontal lobe. Mild to moderate generalized cerebral volume loss. Chest X-Ray 04/02/24 14:30 IMPRESSION: Moderate biapical pleural thickening. The lungs are clear. Electronically signed by: Matias Cormier MD 04/02/2024 03:12 PM [facility] Medications Medications Current Medications Acetaminophen (Acetaminophen 325 Mg Tablet) 650 mg PO Q6H PRN PRN Reason: Headache/Pain Mild Scale (1-3) Last Admin: 03/03/24 08:45 Dose: 650 mg Al Hydroxide/Mg Hydroxide (Magnesium Hydrox/Alum Hydrox 30 Ml Oral.Susp) 30 ml PO Q6H PRN PRN Reason: Heartburn/Nausea Last Admin: 11/27/23 10:48 Dose: 30 ml Aripiprazole (Aripiprazole Er 300 Mg Suser.Syr) 300 mg IM Q28D@0900 [facility] Last Admin: 04/01/24 12:16 Dose: 300 mg Benzocaine (Throat Lozenge, Medicated Lozenge) 1 lozenge MUCOUS MEM Q2H PRN PRN Reason: Sore Throat Last Admin: 12/30/23 20:59 Dose: 1 lozenge Benztropine Mesylate (Benztropine Mesylate 0.5 Mg Tablet) 0.5 mg PO TID PRN PRN Reason: Extrapyramidal Effects Glucose (Glucose Gel 15 Gm Gel..Gram.) 15 gm PO Q15M PRN; Protocol PRN Reason: per Hypoglycemia Standing Ord. Guaifenesin/Dextromethorphan (Guaifenesin Dm 100/10/5 Ml 5 Ml Syrup) 5 ml PO Q4H PRN PRN Reason: Cough Last Admin: 03/01/24 08:16 Dose: 5 ml Hydroxyzine HCl (Hydroxyzine Hcl 25 Mg Tablet) 25 mg PO Q6H PRN PRN Reason: Anxiety Last Admin: 04/13/24 20:36 Dose: 25 mg Insulin Glargine (Insulin Glargine,Hum.Rec.Anlog 100 Unit/Ml 10 Ml Vial) 20 unit SUBCUT BEDTIME [facility] Last Admin: 04/18/24 20:20 Dose: 20 unit Lamotrigine (Lamotrigine 100 Mg Tablet) 150 mg PO BEDTIME [facility] Last Admin: 04/18/24 20:19 Dose: 150 mg Levothyroxine Sodium (Levothyroxine Sodium 150 Mcg Tablet) 150 mcg PO DAILY@0600 [facility] Last Admin: 04/19/24 05:56 Dose: 150 mcg Magnesium Hydroxide (Milk Of Magnesia 30 Ml Oral.Susp) 30 ml PO DAILY PRN PRN Reason: Constipation Memantine (Memantine Hcl 5 Mg Tablet) 5 mg PO BID [facility] Last Admin: 04/19/24 08:10 Dose: 5 mg Metformin HCl (Metformin Hcl Er 500 Mg Tab.Er.24h) 1,000 mg PO DAILY@1700 [facility] Last Admin: 04/18/24 16:47 Dose: 1,000 mg Ondansetron HCl (Ondansetron Odt 8 Mg Tab.Rapdis) 8 mg TRANSLINGU Q8H PRN PRN Reason: Nausea and Vomiting Last Admin: 02/17/24 10:06 Dose: 8 mg Pseudoephedrine HCl (Pseudoephedrine Hcl 30 Mg Tablet) 30 mg PO Q4H PRN PRN Reason: Nasal Congestion Last Admin: 03/03/24 08:45 Dose: 30 mg Sertraline HCl (Sertraline Hcl 50 Mg Tablet) 50 mg PO DAILY [facility] Last Admin: 04/19/24 08:11 Dose: 50 mg Simethicone (Simethicone 80 Mg Tab.Chew) 80 mg PO QIDWMHS PRN PRN Reason: Gas Trazodone HCl (Trazodone Hcl 50 Mg Tablet) 50 mg PO BEDTIME MRX1 PRN PRN Reason: Insomnia Last Admin: 04/15/24 20:09 Dose: 50 mg Allergies Allergies Allergy/AdvReac Type Severity Reaction Status Date / Time amoxicillin [AMOXICILLIN] Allergy Mild VOMITING/ABD Verified 09/10/23 19:44 PAIN Assessment & Plan Assessment & Plan (1) Schizoaffective disorder: Status: Acute Code(s): F25.9 - Schizoaffective disorder, unspecified (2) Hypothyroidism: Status: Acute Code(s): E03.9 - Hypothyroidism, unspecified (3) Type 2 diabetes mellitus: Status: Acute Code(s): E11.9 - Type 2 diabetes mellitus without complications (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 Continue with same medications. 2. Waiting for placement. 04/18 continue current plans and regimen 04/19: Continue current regimen and plans. Reason for continued inpatient stay Substantial Risk for: med/psych decompensation Time Spent With Patient Time: Total time managing care of this patient today ____ minutes.
[2024-04-19] MEDS: metFORMIN HCl ER 500 MG TAB.ER.24H 1000 MG PO (16:53)
[2024-04-19 19:24] VITALS: BP 126/67; PULSE 83; RESP 16; TEMP 36.4; O2SAT 94
[2024-04-19] MEDS: lamoTRIgine 100 MG TABLET 150 MG PO (20:42)
[2024-04-19] MEDS: traZODone HCL 50 MG TABLET PO (20:42)
[2024-04-19] MEDS: hydrOXYzine HCL 25 MG TABLET PO (20:42)
[2024-04-19] MEDS: Insulin Glargine,Hum.rec.anlog 100 UNIT/ML 10 ML VIAL 20 UNIT SUBCUT (20:44)
[2024-04-20] MEDS: Levothyroxine Sodium 150 MCG TABLET PO (06:02)
[2024-04-20 06:19] LABS: Glucose, Whole Blood 113 mg/dL (60-115)
[2024-04-20 08:07] VITALS: BP 127/75; PULSE 72; RESP 18; TEMP 36.9; O2SAT 97
[2024-04-20] MEDS: hydrOXYzine HCL 25 MG TABLET PO (08:09)
[2024-04-20] MEDS: Memantine HCl 5 MG TABLET PO ×2 (08:09→20:58)
[2024-04-20] MEDS: Sertraline HCL 50 MG TABLET PO (08:09)
--- NOTE | 2024-04-20 12:19 | HO.PSYCHPN ---
Subjective Subjective Date of Service: 04/20/24 Reason For Visit: crisis Subjective Notes: Conditional Voluntary Interim History: Patient was seen and discussed in rounds today. Records and plans were reviewed. He fairly stable and is doing well awaiting placement. No complaints or side effects. Eating and sleeping adequately. Has been less intrusive and mostly isolative. No SI. Review of Systems Review of Systems Yes all other systems are reviewed and are negative Mental Status Exam Mental Status Exam Patient Appearance: Appropriate Patient Orientation: Person and Situation Level of Consciousness: Awake and Appropriate Patient Behavior: Guarded and Passive Mood Description: Withdrawn Affect Description: Constricted Patient Cognition Impaired: Yes Ability to Follow Directions: Good Speech Pattern: Clear 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: None Delusions: Paranoid Ideation and Ideas of Reference Thought Process: Distracted and Slowed Thinking Thought Content: positive for [place] and positive for Poverty of Content Judgement: Fair Diagnostics Vital Signs (24Hr): Vital Signs - 24 hr 04/19/24 19:24 04/20/24 08:07 Temperature 97.6 F 98.4 F Pulse Rate 83 72 Respiratory Rate 16 18 Blood Pressure 126/67 127/75 Pulse Oximetry 94 97 Oxygen Delivery Method Room Air Room Air BMI result Body Mass Index 31.4 Labs 09/10/23 20:00 04/16/24 09:51 Labs: Laboratory Results - last 48 hr 04/19/24 04/20/24 05:58 06:04 POC Glucose 110 113 Imaging Radiology Impressions: ITS Impressions Brain MRI 09/19/23 20:33 IMPRESSION: 1. No demonstrated acute intracranial abnormalities. 2. Chronic mild to moderate nonspecific white matter changes, most notably in the deep white matter of the right frontal lobe. Mild to moderate generalized cerebral volume loss. Chest X-Ray 04/02/24 14:30 IMPRESSION: Moderate biapical pleural thickening. The lungs are clear. Electronically signed by: Matias Cormier MD 04/02/2024 03:12 PM [facility] Medications Medications Current Medications Acetaminophen (Acetaminophen 325 Mg Tablet) 650 mg PO Q6H PRN PRN Reason: Headache/Pain Mild Scale (1-3) Last Admin: 03/03/24 08:45 Dose: 650 mg Al Hydroxide/Mg Hydroxide (Magnesium Hydrox/Alum Hydrox 30 Ml Oral.Susp) 30 ml PO Q6H PRN PRN Reason: Heartburn/Nausea Last Admin: 11/27/23 10:48 Dose: 30 ml Aripiprazole (Aripiprazole Er 300 Mg Suser.Syr) 300 mg IM Q28D@0900 [facility] Last Admin: 04/01/24 12:16 Dose: 300 mg Benzocaine (Throat Lozenge, Medicated Lozenge) 1 lozenge MUCOUS MEM Q2H PRN PRN Reason: Sore Throat Last Admin: 12/30/23 20:59 Dose: 1 lozenge Benztropine Mesylate (Benztropine Mesylate 0.5 Mg Tablet) 0.5 mg PO TID PRN PRN Reason: Extrapyramidal Effects Glucose (Glucose Gel 15 Gm Gel..Gram.) 15 gm PO Q15M PRN; Protocol PRN Reason: per Hypoglycemia Standing Ord. Guaifenesin/Dextromethorphan (Guaifenesin Dm 100/10/5 Ml 5 Ml Syrup) 5 ml PO Q4H PRN PRN Reason: Cough Last Admin: 03/01/24 08:16 Dose: 5 ml Hydroxyzine HCl (Hydroxyzine Hcl 25 Mg Tablet) 25 mg PO Q6H PRN PRN Reason: Anxiety Last Admin: 04/20/24 08:09 Dose: 25 mg Insulin Glargine (Insulin Glargine,Hum.Rec.Anlog 100 Unit/Ml 10 Ml Vial) 20 unit SUBCUT BEDTIME [facility] Last Admin: 04/19/24 20:44 Dose: 20 unit Lamotrigine (Lamotrigine 100 Mg Tablet) 150 mg PO BEDTIME [facility] Last Admin: 04/19/24 20:42 Dose: 150 mg Levothyroxine Sodium (Levothyroxine Sodium 150 Mcg Tablet) 150 mcg PO DAILY@0600 [facility] Last Admin: 04/20/24 06:02 Dose: 150 mcg Magnesium Hydroxide (Milk Of Magnesia 30 Ml Oral.Susp) 30 ml PO DAILY PRN PRN Reason: Constipation Memantine (Memantine Hcl 5 Mg Tablet) 5 mg PO BID [facility] Last Admin: 04/20/24 08:09 Dose: 5 mg Metformin HCl (Metformin Hcl Er 500 Mg Tab.Er.24h) 1,000 mg PO DAILY@1700 [facility] Last Admin: 04/19/24 16:53 Dose: 1,000 mg Ondansetron HCl (Ondansetron Odt 8 Mg Tab.Rapdis) 8 mg TRANSLINGU Q8H PRN PRN Reason: Nausea and Vomiting Last Admin: 02/17/24 10:06 Dose: 8 mg Pseudoephedrine HCl (Pseudoephedrine Hcl 30 Mg Tablet) 30 mg PO Q4H PRN PRN Reason: Nasal Congestion Last Admin: 03/03/24 08:45 Dose: 30 mg Sertraline HCl (Sertraline Hcl 50 Mg Tablet) 50 mg PO DAILY [facility] Last Admin: 04/20/24 08:09 Dose: 50 mg Simethicone (Simethicone 80 Mg Tab.Chew) 80 mg PO QIDWMHS PRN PRN Reason: Gas Trazodone HCl (Trazodone Hcl 50 Mg Tablet) 50 mg PO BEDTIME MRX1 PRN PRN Reason: Insomnia Last Admin: 04/19/24 20:42 Dose: 50 mg Allergies Allergies Allergy/AdvReac Type Severity Reaction Status Date / Time amoxicillin [AMOXICILLIN] Allergy Mild VOMITING/ABD Verified 09/10/23 19:44 PAIN Assessment & Plan Assessment & Plan (1) Schizoaffective disorder: Status: Acute Code(s): F25.9 - Schizoaffective disorder, unspecified (2) Hypothyroidism: Status: Acute Code(s): E03.9 - Hypothyroidism, unspecified (3) Type 2 diabetes mellitus: Status: Acute Code(s): E11.9 - Type 2 diabetes mellitus without complications (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 Continue with same medications. 2. Waiting for placement. 04/18 continue current plans and regimen 04/19: Continue current regimen and plans. 04/20: Continue current regimen and plans Reason for continued inpatient stay Substantial Risk for: med/psych decompensation Time Spent With Patient Time: Total time managing care of this patient today ____ minutes.
[2024-04-20] MEDS: metFORMIN HCl ER 500 MG TAB.ER.24H 1000 MG PO (16:39)
[2024-04-20 20:00] VITALS: BP 132/77; PULSE 76; RESP 16; TEMP 36.6; O2SAT 95
[2024-04-20] MEDS: Insulin Glargine,Hum.rec.anlog 100 UNIT/ML 10 ML VIAL 20 UNIT SUBCUT (20:56)
[2024-04-20] MEDS: lamoTRIgine 100 MG TABLET 150 MG PO (20:57)
[2024-04-20] MEDS: traZODone HCL 50 MG TABLET PO (20:58)
[2024-04-21] MEDS: Levothyroxine Sodium 150 MCG TABLET PO (06:32)
[2024-04-21 06:46] LABS: Glucose, Whole Blood 111 mg/dL (60-115)
[2024-04-21 08:00] VITALS: BP 112/57; PULSE 60; RESP 18; TEMP 36.7; O2SAT 98
[2024-04-21] MEDS: Memantine HCl 5 MG TABLET PO ×2 (08:20→21:01)
[2024-04-21] MEDS: Sertraline HCL 50 MG TABLET PO (08:20)
--- NOTE | 2024-04-21 11:59 | P.PNPSI_ITS ---
Subjective Subjective Date of Service: 04/21/24 Reason For Visit: crisis Subjective Notes: Conditional Voluntary Interim History: The nursing staff reported no changes in his mental status compliant with treatment. On interview the patient denies new symptoms, waiting for placement Mental Status Exam Mental Status Exam Patient Appearance: Appropriate Patient Orientation: Person and Situation Level of Consciousness: Awake and Appropriate Patient Behavior: Guarded and Passive Mood Description: Withdrawn Affect Description: Blunted Patient Cognition Impaired: Yes Ability to Follow Directions: Good Speech Pattern: Clear 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: None Delusions: Ideas of Reference Thought Process: Distracted and Slowed Thinking Thought Content: positive for [place] and positive for Poverty of Content Judgement: Fair Diagnostics Vital Signs (24Hr): Vital Signs - 24 hr 04/20/24 20:00 04/21/24 08:00 Temperature 97.8 F 98.1 F Pulse Rate 76 60 Respiratory Rate 16 18 Blood Pressure 132/77 112/57 L Pulse Oximetry 95 98 Oxygen Delivery Method Room Air Room Air BMI result Body Mass Index 31.4 Labs 09/10/23 20:00 04/16/24 09:51 Labs: Laboratory Results - last 48 hr 04/20/24 04/21/24 06:04 06:30 POC Glucose 113 111 Imaging Radiology Impressions: ITS Impressions Brain MRI 09/19/23 20:33 IMPRESSION: 1. No demonstrated acute intracranial abnormalities. 2. Chronic mild to moderate nonspecific white matter changes, most notably in the deep white matter of the right frontal lobe. Mild to moderate generalized cerebral volume loss. Chest X-Ray 04/02/24 14:30 IMPRESSION: Moderate biapical pleural thickening. The lungs are clear. Electronically signed by: Matias Cormier MD 04/02/2024 03:12 PM [facility] Medications Medications Current Medications Acetaminophen (Acetaminophen 325 Mg Tablet) 650 mg PO Q6H PRN PRN Reason: Headache/Pain Mild Scale (1-3) Last Admin: 03/03/24 08:45 Dose: 650 mg Al Hydroxide/Mg Hydroxide (Magnesium Hydrox/Alum Hydrox 30 Ml Oral.Susp) 30 ml PO Q6H PRN PRN Reason: Heartburn/Nausea Last Admin: 11/27/23 10:48 Dose: 30 ml Aripiprazole (Aripiprazole Er 300 Mg Suser.Syr) 300 mg IM Q28D@0900 [facility] Last Admin: 04/01/24 12:16 Dose: 300 mg Benzocaine (Throat Lozenge, Medicated Lozenge) 1 lozenge MUCOUS MEM Q2H PRN PRN Reason: Sore Throat Last Admin: 12/30/23 20:59 Dose: 1 lozenge Benztropine Mesylate (Benztropine Mesylate 0.5 Mg Tablet) 0.5 mg PO TID PRN PRN Reason: Extrapyramidal Effects Glucose (Glucose Gel 15 Gm Gel..Gram.) 15 gm PO Q15M PRN; Protocol PRN Reason: per Hypoglycemia Standing Ord. Guaifenesin/Dextromethorphan (Guaifenesin Dm 100/10/5 Ml 5 Ml Syrup) 5 ml PO Q4H PRN PRN Reason: Cough Last Admin: 03/01/24 08:16 Dose: 5 ml Hydroxyzine HCl (Hydroxyzine Hcl 25 Mg Tablet) 25 mg PO Q6H PRN PRN Reason: Anxiety Last Admin: 04/20/24 08:09 Dose: 25 mg Insulin Glargine (Insulin Glargine,Hum.Rec.Anlog 100 Unit/Ml 10 Ml Vial) 20 unit SUBCUT BEDTIME [facility] Last Admin: 04/20/24 20:56 Dose: 20 unit Lamotrigine (Lamotrigine 100 Mg Tablet) 150 mg PO BEDTIME [facility] Last Admin: 04/20/24 20:57 Dose: 150 mg Levothyroxine Sodium (Levothyroxine Sodium 150 Mcg Tablet) 150 mcg PO DAILY@0600 [facility] Last Admin: 04/21/24 06:32 Dose: 150 mcg Magnesium Hydroxide (Milk Of Magnesia 30 Ml Oral.Susp) 30 ml PO DAILY PRN PRN Reason: Constipation Memantine (Memantine Hcl 5 Mg Tablet) 5 mg PO BID [facility] Last Admin: 04/21/24 08:20 Dose: 5 mg Metformin HCl (Metformin Hcl Er 500 Mg Tab.Er.24h) 1,000 mg PO DAILY@1700 [facility] Last Admin: 04/20/24 16:39 Dose: 1,000 mg Ondansetron HCl (Ondansetron Odt 8 Mg Tab.Rapdis) 8 mg TRANSLINGU Q8H PRN PRN Reason: Nausea and Vomiting Last Admin: 02/17/24 10:06 Dose: 8 mg Pseudoephedrine HCl (Pseudoephedrine Hcl 30 Mg Tablet) 30 mg PO Q4H PRN PRN Reason: Nasal Congestion Last Admin: 03/03/24 08:45 Dose: 30 mg Sertraline HCl (Sertraline Hcl 50 Mg Tablet) 50 mg PO DAILY [facility] Last Admin: 04/21/24 08:20 Dose: 50 mg Simethicone (Simethicone 80 Mg Tab.Chew) 80 mg PO QIDWMHS PRN PRN Reason: Gas Trazodone HCl (Trazodone Hcl 50 Mg Tablet) 50 mg PO BEDTIME MRX1 PRN PRN Reason: Insomnia Last Admin: 04/20/24 20:58 Dose: 50 mg Allergies Allergies Allergy/AdvReac Type Severity Reaction Status Date / Time amoxicillin [AMOXICILLIN] Allergy Mild VOMITING/ABD Verified 09/10/23 19:44 PAIN Assessment & Plan Assessment & Plan (1) Schizoaffective disorder: Status: Acute Code(s): F25.9 - Schizoaffective disorder, unspecified (2) Hypothyroidism: Status: Acute Code(s): E03.9 - Hypothyroidism, unspecified (3) Type 2 diabetes mellitus: Status: Acute Code(s): E11.9 - Type 2 diabetes mellitus without complications (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 Continue with same medications. 2. Waiting for placement. Reason for continued inpatient stay Substantial Risk for: inability to function, rapid decompensation and med/psych decompensation Time Spent With Patient Time: Total time managing care of this patient today __20__ minutes.
[2024-04-21] MEDS: metFORMIN HCl ER 500 MG TAB.ER.24H 1000 MG PO (16:46)
[2024-04-21 20:00] VITALS: BP 126/66; PULSE 92; RESP 18; TEMP 36.7; O2SAT 97
[2024-04-21] MEDS: Insulin Glargine,Hum.rec.anlog 100 UNIT/ML 10 ML VIAL 20 UNIT SUBCUT (21:01)
[2024-04-21] MEDS: traZODone HCL 50 MG TABLET PO (21:01)
[2024-04-21] MEDS: lamoTRIgine 100 MG TABLET 150 MG PO (21:02)
[2024-04-22 06:02] LABS: Glucose, Whole Blood 109 mg/dL (60-115)
[2024-04-22] MEDS: Sertraline HCL 50 MG TABLET PO (08:12)
[2024-04-22] MEDS: Memantine HCl 5 MG TABLET PO ×2 (08:12→20:53)
[2024-04-22 08:17] VITALS: BP 121/79; PULSE 84; RESP 18; TEMP 36.9; O2SAT 97
--- NOTE | 2024-04-22 13:49 | P.PNPSI_ITS ---
Subjective Subjective Date of Service: 04/22/24 Reason For Visit: crisis Subjective Notes: Conditional Voluntary Interim History: The nursing staff reported no changes on mental status. On interview, he reported that he is doing well, waiting for placement. Mental Status Exam Mental Status Exam Patient Appearance: Appropriate Patient Orientation: Person and Situation Level of Consciousness: Awake and Appropriate Patient Behavior: Guarded and Passive Mood Description: Calm Affect Description: Constricted Patient Cognition Impaired: Yes Ability to Follow Directions: Good Speech Pattern: Clear 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: None Delusions: Not Present Thought Process: Distracted and Slowed Thinking Thought Content: positive for [place] and positive for Poverty of Content Judgement: Fair Diagnostics Vital Signs (24Hr): Vital Signs - 24 hr 04/21/24 20:00 04/22/24 08:17 Temperature 98.1 F 98.5 F Pulse Rate 92 84 Respiratory Rate 18 18 Blood Pressure 126/66 121/79 Pulse Oximetry 97 97 Oxygen Delivery Method Room Air Room Air BMI result Body Mass Index 31.4 Labs 09/10/23 20:00 04/16/24 09:51 Labs: Laboratory Results - last 48 hr 04/21/24 04/22/24 06:30 05:56 POC Glucose 111 109 Imaging Radiology Impressions: ITS Impressions Brain MRI 09/19/23 20:33 IMPRESSION: 1. No demonstrated acute intracranial abnormalities. 2. Chronic mild to moderate nonspecific white matter changes, most notably in the deep white matter of the right frontal lobe. Mild to moderate generalized cerebral volume loss. Chest X-Ray 04/02/24 14:30 IMPRESSION: Moderate biapical pleural thickening. The lungs are clear. Electronically signed by: Matias Cormier MD 04/02/2024 03:12 PM [facility] Medications Medications Current Medications Acetaminophen (Acetaminophen 325 Mg Tablet) 650 mg PO Q6H PRN PRN Reason: Headache/Pain Mild Scale (1-3) Last Admin: 03/03/24 08:45 Dose: 650 mg Al Hydroxide/Mg Hydroxide (Magnesium Hydrox/Alum Hydrox 30 Ml Oral.Susp) 30 ml PO Q6H PRN PRN Reason: Heartburn/Nausea Last Admin: 11/27/23 10:48 Dose: 30 ml Aripiprazole (Aripiprazole Er 300 Mg Suser.Syr) 300 mg IM Q28D@0900 [facility] Last Admin: 04/01/24 12:16 Dose: 300 mg Benzocaine (Throat Lozenge, Medicated Lozenge) 1 lozenge MUCOUS MEM Q2H PRN PRN Reason: Sore Throat Last Admin: 12/30/23 20:59 Dose: 1 lozenge Benztropine Mesylate (Benztropine Mesylate 0.5 Mg Tablet) 0.5 mg PO TID PRN PRN Reason: Extrapyramidal Effects Glucose (Glucose Gel 15 Gm Gel..Gram.) 15 gm PO Q15M PRN; Protocol PRN Reason: per Hypoglycemia Standing Ord. Guaifenesin/Dextromethorphan (Guaifenesin Dm 100/10/5 Ml 5 Ml Syrup) 5 ml PO Q4H PRN PRN Reason: Cough Last Admin: 03/01/24 08:16 Dose: 5 ml Hydroxyzine HCl (Hydroxyzine Hcl 25 Mg Tablet) 25 mg PO Q6H PRN PRN Reason: Anxiety Last Admin: 04/20/24 08:09 Dose: 25 mg Insulin Glargine (Insulin Glargine,Hum.Rec.Anlog 100 Unit/Ml 10 Ml Vial) 20 unit SUBCUT BEDTIME [facility] Last Admin: 04/21/24 21:01 Dose: 20 unit Lamotrigine (Lamotrigine 100 Mg Tablet) 150 mg PO BEDTIME [facility] Last Admin: 04/21/24 21:02 Dose: 150 mg Levothyroxine Sodium (Levothyroxine Sodium 150 Mcg Tablet) 150 mcg PO DAILY@0600 [facility] Last Admin: 04/22/24 08:16 Dose: Not Given Magnesium Hydroxide (Milk Of Magnesia 30 Ml Oral.Susp) 30 ml PO DAILY PRN PRN Reason: Constipation Memantine (Memantine Hcl 5 Mg Tablet) 5 mg PO BID [facility] Last Admin: 04/22/24 08:12 Dose: 5 mg Metformin HCl (Metformin Hcl Er 500 Mg Tab.Er.24h) 1,000 mg PO DAILY@1700 [facility] Last Admin: 04/21/24 16:46 Dose: 1,000 mg Ondansetron HCl (Ondansetron Odt 8 Mg Tab.Rapdis) 8 mg TRANSLINGU Q8H PRN PRN Reason: Nausea and Vomiting Last Admin: 02/17/24 10:06 Dose: 8 mg Pseudoephedrine HCl (Pseudoephedrine Hcl 30 Mg Tablet) 30 mg PO Q4H PRN PRN Reason: Nasal Congestion Last Admin: 03/03/24 08:45 Dose: 30 mg Sertraline HCl (Sertraline Hcl 50 Mg Tablet) 50 mg PO DAILY [facility] Last Admin: 04/22/24 08:12 Dose: 50 mg Simethicone (Simethicone 80 Mg Tab.Chew) 80 mg PO QIDWMHS PRN PRN Reason: Gas Trazodone HCl (Trazodone Hcl 50 Mg Tablet) 50 mg PO BEDTIME MRX1 PRN PRN Reason: Insomnia Last Admin: 04/21/24 21:01 Dose: 50 mg Allergies Allergies Allergy/AdvReac Type Severity Reaction Status Date / Time amoxicillin [AMOXICILLIN] Allergy Mild VOMITING/ABD Verified 09/10/23 19:44 PAIN Assessment & Plan Assessment & Plan (1) Schizoaffective disorder: Status: Acute Code(s): F25.9 - Schizoaffective disorder, unspecified (2) Hypothyroidism: Status: Acute Code(s): E03.9 - Hypothyroidism, unspecified (3) Type 2 diabetes mellitus: Status: Acute Code(s): E11.9 - Type 2 diabetes mellitus without complications (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 Continue with same medications. 2. Waiting for placement. Reason for continued inpatient stay Substantial Risk for: inability to function, rapid decompensation and med/psych decompensation Time Spent With Patient Time: Total time managing care of this patient today __20__ minutes.
[2024-04-22] MEDS: metFORMIN HCl ER 500 MG TAB.ER.24H 1000 MG PO (16:41)
[2024-04-22 20:00] VITALS: BP 131/61; PULSE 77; RESP 16; TEMP 36.7; O2SAT 97
[2024-04-22] MEDS: lamoTRIgine 100 MG TABLET 150 MG PO (20:53)
[2024-04-22] MEDS: Insulin Glargine,Hum.rec.anlog 100 UNIT/ML 10 ML VIAL 20 UNIT SUBCUT (20:55)
[2024-04-23] MEDS: Levothyroxine Sodium 150 MCG TABLET PO (06:14)
[2024-04-23 06:49] LABS: Glucose, Whole Blood 118 mg/dL (60-115)
[2024-04-23 08:10] VITALS: BP 129/70; PULSE 77; RESP 20; TEMP 36.6; O2SAT 99
[2024-04-23] MEDS: Sertraline HCL 50 MG TABLET PO (08:13)
[2024-04-23] MEDS: Memantine HCl 5 MG TABLET PO ×2 (08:13→21:42)
[2024-04-23 09:06] LABS: Creatinine Clr Calc Pharmacy 106.4; Estimated Glomerular Filt Rate > 60
--- NOTE | 2024-04-23 16:31 | HO.PSYCHPN ---
Subjective Subjective Date of Service: 04/23/24 Reason For Visit: crisis Subjective Notes: Conditional Voluntary Interim History: The nursing staff reported no changes in his mental status compliant with treatment. On interview the patient denies new symptoms, waiting for placement. Mental Status Exam Mental Status Exam Patient Appearance: Appropriate Patient Orientation: Person and Situation Level of Consciousness: Awake and Appropriate Patient Behavior: Guarded and Passive Mood Description: Withdrawn Affect Description: Constricted Patient Cognition Impaired: Yes Ability to Follow Directions: Good Speech Pattern: Clear 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: None Delusions: Ideas of Reference Thought Process: Distracted and Slowed Thinking Thought Content: positive for [place] and positive for Poverty of Content Judgement: Fair Diagnostics Vital Signs (24Hr): Vital Signs - 24 hr 04/22/24 20:00 04/23/24 08:10 Temperature 98.1 F 97.9 F Pulse Rate 77 77 Respiratory Rate 16 20 Blood Pressure 131/61 129/70 Pulse Oximetry 97 99 Oxygen Delivery Method Room Air Room Air BMI result Body Mass Index 31.4 Labs 09/10/23 20:00 04/23/24 08:21 Labs: Laboratory Results - last 48 hr 04/22/24 04/23/24 04/23/24 05:56 06:15 08:21 Creatinine 0.85 Estim Creat Clear Calc 106.4 Estimated GFR > 60 POC Glucose 109 118 H Imaging Radiology Impressions: ITS Impressions Brain MRI 09/19/23 20:33 IMPRESSION: 1. No demonstrated acute intracranial abnormalities. 2. Chronic mild to moderate nonspecific white matter changes, most notably in the deep white matter of the right frontal lobe. Mild to moderate generalized cerebral volume loss. Chest X-Ray 04/02/24 14:30 IMPRESSION: Moderate biapical pleural thickening. The lungs are clear. Electronically signed by: Matias Cormier MD 04/02/2024 03:12 PM [facility] Medications Medications Current Medications Acetaminophen (Acetaminophen 325 Mg Tablet) 650 mg PO Q6H PRN PRN Reason: Headache/Pain Mild Scale (1-3) Last Admin: 03/03/24 08:45 Dose: 650 mg Al Hydroxide/Mg Hydroxide (Magnesium Hydrox/Alum Hydrox 30 Ml Oral.Susp) 30 ml PO Q6H PRN PRN Reason: Heartburn/Nausea Last Admin: 11/27/23 10:48 Dose: 30 ml Aripiprazole (Aripiprazole Er 300 Mg Suser.Syr) 300 mg IM Q28D@0900 [facility] Last Admin: 04/01/24 12:16 Dose: 300 mg Benzocaine (Throat Lozenge, Medicated Lozenge) 1 lozenge MUCOUS MEM Q2H PRN PRN Reason: Sore Throat Last Admin: 12/30/23 20:59 Dose: 1 lozenge Benztropine Mesylate (Benztropine Mesylate 0.5 Mg Tablet) 0.5 mg PO TID PRN PRN Reason: Extrapyramidal Effects Glucose (Glucose Gel 15 Gm Gel..Gram.) 15 gm PO Q15M PRN; Protocol PRN Reason: per Hypoglycemia Standing Ord. Guaifenesin/Dextromethorphan (Guaifenesin Dm 100/10/5 Ml 5 Ml Syrup) 5 ml PO Q4H PRN PRN Reason: Cough Last Admin: 03/01/24 08:16 Dose: 5 ml Hydroxyzine HCl (Hydroxyzine Hcl 25 Mg Tablet) 25 mg PO Q6H PRN PRN Reason: Anxiety Last Admin: 04/20/24 08:09 Dose: 25 mg Insulin Glargine (Insulin Glargine,Hum.Rec.Anlog 100 Unit/Ml 10 Ml Vial) 20 unit SUBCUT BEDTIME [facility] Last Admin: 04/22/24 20:55 Dose: 20 unit Lamotrigine (Lamotrigine 100 Mg Tablet) 150 mg PO BEDTIME [facility] Last Admin: 04/22/24 20:53 Dose: 150 mg Levothyroxine Sodium (Levothyroxine Sodium 150 Mcg Tablet) 150 mcg PO DAILY@0600 [facility] Last Admin: 04/23/24 06:14 Dose: 150 mcg Magnesium Hydroxide (Milk Of Magnesia 30 Ml Oral.Susp) 30 ml PO DAILY PRN PRN Reason: Constipation Memantine (Memantine Hcl 5 Mg Tablet) 5 mg PO BID [facility] Last Admin: 04/23/24 08:13 Dose: 5 mg Metformin HCl (Metformin Hcl Er 500 Mg Tab.Er.24h) 1,000 mg PO DAILY@1700 [facility] Last Admin: 04/22/24 16:41 Dose: 1,000 mg Ondansetron HCl (Ondansetron Odt 8 Mg Tab.Rapdis) 8 mg TRANSLINGU Q8H PRN PRN Reason: Nausea and Vomiting Last Admin: 02/17/24 10:06 Dose: 8 mg Pseudoephedrine HCl (Pseudoephedrine Hcl 30 Mg Tablet) 30 mg PO Q4H PRN PRN Reason: Nasal Congestion Last Admin: 03/03/24 08:45 Dose: 30 mg Sertraline HCl (Sertraline Hcl 50 Mg Tablet) 50 mg PO DAILY [facility] Last Admin: 04/23/24 08:13 Dose: 50 mg Simethicone (Simethicone 80 Mg Tab.Chew) 80 mg PO QIDWMHS PRN PRN Reason: Gas Trazodone HCl (Trazodone Hcl 50 Mg Tablet) 50 mg PO BEDTIME MRX1 PRN PRN Reason: Insomnia Last Admin: 04/21/24 21:01 Dose: 50 mg Allergies Allergies Allergy/AdvReac Type Severity Reaction Status Date / Time amoxicillin [AMOXICILLIN] Allergy Mild VOMITING/ABD Verified 09/10/23 19:44 PAIN Assessment & Plan Assessment & Plan (1) Schizoaffective disorder: Status: Acute Code(s): F25.9 - Schizoaffective disorder, unspecified (2) Hypothyroidism: Status: Acute Code(s): E03.9 - Hypothyroidism, unspecified (3) Type 2 diabetes mellitus: Status: Acute Code(s): E11.9 - Type 2 diabetes mellitus without complications (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 Continue with same medications. 2. Waiting for placement. Reason for continued inpatient stay Substantial Risk for: inability to function, rapid decompensation and med/psych decompensation Time Spent With Patient Time: Total time managing care of this patient today __20__ minutes.
[2024-04-23] MEDS: metFORMIN HCl ER 500 MG TAB.ER.24H 1000 MG PO (16:46)
[2024-04-23 20:00] VITALS: BP 126/65; PULSE 76; RESP 16; TEMP 36.5; O2SAT 96
[2024-04-23] MEDS: traZODone HCL 50 MG TABLET PO (21:41)
[2024-04-23] MEDS: lamoTRIgine 100 MG TABLET 150 MG PO (21:41)
[2024-04-23] MEDS: Insulin Glargine,Hum.rec.anlog 100 UNIT/ML 10 ML VIAL 20 UNIT SUBCUT (21:42)
[2024-04-24] MEDS: Levothyroxine Sodium 150 MCG TABLET PO (06:10)
[2024-04-24 06:16] LABS: Glucose, Whole Blood 121 mg/dL (60-115)
[2024-04-24] MEDS: Memantine HCl 5 MG TABLET PO ×2 (08:08→20:09)
[2024-04-24] MEDS: Sertraline HCL 50 MG TABLET PO (08:08)
[2024-04-24 08:55] VITALS: BP 125/60; PULSE 79; RESP 17; TEMP 36.4; O2SAT 99
--- NOTE | 2024-04-24 16:26 | HO.PSYCHPN ---
Subjective Subjective Date of Service: 04/24/24 Reason For Visit: crisis Subjective Notes: Conditional Voluntary Interim History: The nursing staff reported the patient had been pleasant, cooperative compliant with treatment. On interview the patient denies new symptoms, waiting for placement Mental Status Exam Mental Status Exam Patient Appearance: Appropriate Patient Orientation: Person and Situation Level of Consciousness: Awake and Appropriate Patient Behavior: Guarded and Passive Mood Description: Withdrawn Affect Description: Constricted Patient Cognition Impaired: Yes Ability to Follow Directions: Good Speech Pattern: Clear 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: None Delusions: Ideas of Reference Thought Process: Distracted and Slowed Thinking Thought Content: positive for [place] and positive for [place] of Content Judgement: Fair Diagnostics Vital Signs (24Hr): Vital Signs - 24 hr 04/23/24 20:00 04/24/24 08:55 Temperature 97.7 F 97.6 F Pulse Rate 76 79 Respiratory Rate 16 17 Blood Pressure 126/65 125/60 Pulse Oximetry 96 99 Oxygen Delivery Method Room Air Room Air BMI result Body Mass Index 31.4 Labs 09/10/23 20:00 04/23/24 08:21 Labs: Laboratory Results - last 48 hr 04/23/24 04/23/24 04/24/24 06:15 08:21 06:10 Creatinine 0.85 Estim Creat Clear Calc 106.4 Estimated GFR > 60 POC Glucose 118 H 121 H Imaging Radiology Impressions: ITS Impressions Brain MRI 09/19/23 20:33 IMPRESSION: 1. No demonstrated acute intracranial abnormalities. 2. Chronic mild to moderate nonspecific white matter changes, most notably in the deep white matter of the right frontal lobe. Mild to moderate generalized cerebral volume loss. Chest X-Ray 04/02/24 14:30 IMPRESSION: Moderate biapical pleural thickening. The lungs are clear. Electronically signed by: Matias Cormier MD 04/02/2024 03:12 PM [facility] [place] Medications Current Medications Acetaminophen (Acetaminophen 325 Mg Tablet) 650 mg PO Q6H PRN PRN Reason: Headache/Pain Mild Scale (1-3) Last Admin: 03/03/24 08:45 Dose: 650 mg Al Hydroxide/Mg Hydroxide (Magnesium Hydrox/Alum Hydrox 30 Ml Oral.Susp) 30 ml PO Q6H PRN PRN Reason: Heartburn/Nausea Last Admin: 11/27/23 10:48 Dose: 30 ml Aripiprazole (Aripiprazole Er 300 Mg Suser.Syr) 300 mg IM Q28D@0900 [facility] Last Admin: 04/01/24 12:16 Dose: 300 mg Benzocaine (Throat Lozenge, Medicated Lozenge) 1 lozenge MUCOUS MEM Q2H PRN PRN Reason: Sore Throat Last Admin: 12/30/23 20:59 Dose: 1 lozenge Benztropine Mesylate (Benztropine Mesylate 0.5 Mg Tablet) 0.5 mg PO TID PRN PRN Reason: Extrapyramidal Effects Glucose (Glucose Gel 15 Gm Gel..Gram.) 15 gm PO Q15M PRN; Protocol PRN Reason: per Hypoglycemia Standing Ord. Guaifenesin/Dextromethorphan (Guaifenesin Dm 100/10/5 Ml 5 Ml Syrup) 5 ml PO Q4H PRN PRN Reason: Cough Last Admin: 03/01/24 08:16 Dose: 5 ml Hydroxyzine HCl (Hydroxyzine Hcl 25 Mg Tablet) 25 mg PO Q6H PRN PRN Reason: Anxiety Last Admin: 04/20/24 08:09 Dose: 25 mg Insulin Glargine (Insulin Glargine,Hum.Rec.Anlog 100 Unit/Ml 10 Ml Vial) 20 unit SUBCUT BEDTIME [facility] Last Admin: 04/23/24 21:42 Dose: 20 unit Lamotrigine (Lamotrigine 100 Mg Tablet) 150 mg PO BEDTIME [facility] Last Admin: 04/23/24 21:41 Dose: 150 mg Levothyroxine Sodium (Levothyroxine Sodium 150 Mcg Tablet) 150 mcg PO DAILY@0600 [facility] Last Admin: 04/24/24 06:10 Dose: 150 mcg Magnesium Hydroxide (Milk Of Magnesia 30 Ml Oral.Susp) 30 ml PO DAILY PRN PRN Reason: Constipation Memantine (Memantine Hcl 5 Mg Tablet) 5 mg PO BID [facility] Last Admin: 04/24/24 08:08 Dose: 5 mg Metformin HCl (Metformin Hcl Er 500 Mg Tab.Er.24h) 1,000 mg PO DAILY@1700 [facility] Last Admin: 04/23/24 16:46 Dose: 1,000 mg Ondansetron HCl (Ondansetron Odt 8 Mg Tab.Rapdis) 8 mg TRANSLINGU Q8H PRN PRN Reason: Nausea and Vomiting Last Admin: 02/17/24 10:06 Dose: 8 mg Pseudoephedrine HCl (Pseudoephedrine Hcl 30 Mg Tablet) 30 mg PO Q4H PRN PRN Reason: Nasal Congestion Last Admin: 03/03/24 08:45 Dose: 30 mg Sertraline HCl (Sertraline Hcl 50 Mg Tablet) 50 mg PO DAILY [facility] Last Admin: 04/24/24 08:08 Dose: 50 mg Simethicone (Simethicone 80 Mg Tab.Chew) 80 mg PO QIDWMHS PRN PRN Reason: Gas Trazodone HCl (Trazodone Hcl 50 Mg Tablet) 50 mg PO BEDTIME MRX1 PRN PRN Reason: Insomnia Last Admin: 04/23/24 21:41 Dose: 50 mg Allergies Allergies Allergy/AdvReac Type Severity Reaction Status Date / Time amoxicillin [AMOXICILLIN] Allergy Mild VOMITING/ABD Verified 09/10/23 19:44 PAIN Assessment & Plan Assessment & Plan (1) Schizoaffective disorder: Status: Acute Code(s): F25.9 - Schizoaffective disorder, unspecified (2) Hypothyroidism: Status: Acute Code(s): E03.9 - Hypothyroidism, unspecified (3) Type 2 diabetes mellitus: Status: Acute Code(s): E11.9 - Type 2 diabetes mellitus without complications (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 Continue with same medications. 2. Waiting for placement. Reason for continued inpatient stay Substantial Risk for: inability to function, rapid decompensation and med/psych decompensation Time Spent With Patient Time: Total time managing care of this patient today _20___ minutes.
[2024-04-24] MEDS: metFORMIN HCl ER 500 MG TAB.ER.24H 1000 MG PO (16:53)
[2024-04-24] MEDS: lamoTRIgine 100 MG TABLET 150 MG PO (20:07)
[2024-04-24] MEDS: Insulin Glargine,Hum.rec.anlog 100 UNIT/ML 10 ML VIAL 20 UNIT SUBCUT (20:07)
[2024-04-24 20:23] VITALS: BP 123/71; PULSE 77; RESP 18; TEMP 36.9; O2SAT 96
[2024-04-25] MEDS: Levothyroxine Sodium 150 MCG TABLET PO (05:30)
[2024-04-25 05:59] LABS: Glucose, Whole Blood 85 mg/dL (60-115)
[2024-04-25 08:26] VITALS: BP 109/66; PULSE 74; RESP 18; TEMP 36.5; O2SAT 95
[2024-04-25] MEDS: hydrOXYzine HCL 25 MG TABLET PO (08:33)
[2024-04-25] MEDS: Memantine HCl 5 MG TABLET PO ×2 (08:33→19:48)
[2024-04-25] MEDS: Sertraline HCL 50 MG TABLET PO (08:33)
--- NOTE | 2024-04-25 12:15 | P.PNPSI_ITS ---
Subjective Subjective Date of Service: 04/25/24 Reason For Visit: crisis Interim History: The nursing staff reported the patient had been pleasant, cooperative compliant with treatment. On interview the patient denies new symptoms, waiting for placement Review of Systems Review of Systems Unremarkable Yes all other systems are reviewed and are negative and unobtainable due to endotracheal tube Constitutional: Reports as per HPI Eyes: Reports as per HPI Reports as per HPI Cardiovascular: Reports as per HPI Respiratory: Reports as per HPI Gastrointestinal: Reports as per HPI Genitourinary: Reports as per HPI Musculoskeletal: Reports as per HPI Skin/Breast: Reports as per HPI Reports as per HPI Psychiatric: Reports as per HPI Endocrine: Reports as per HPI Hematologic/Lymphatic: Reports as per HPI Allergic/Immunologic: Reports as per HPI Mental Status Exam Mental Status Exam Narrative: Ante room. Mask. The patient is blunted with poverty of content. No overt suspiciousness. Denied hallucinations. Denied SI or HI. Difficulty with decision-making impaired insight judgment Patient Appearance: Appropriate Patient Orientation: Person and Situation Level of Consciousness: Awake and Appropriate Patient Behavior: Guarded and Passive Mood Description: Withdrawn Affect Description: Constricted Patient Cognition Impaired: Yes Ability to Follow Directions: Good Speech Pattern: Clear 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: Transport Rn Impaired Diagnostics Vital Signs (24Hr): Vital Signs - 24 hr 04/24/24 20:23 04/25/24 08:26 Temperature 98.4 F 97.7 F Pulse Rate 77 74 Respiratory Rate 18 18 Blood Pressure 123/71 109/66 Pulse Oximetry 96 95 Oxygen Delivery Method Room Air Room Air BMI result Body Mass Index 31.4 Labs 09/10/23 20:00 04/23/24 08:21 Labs: Laboratory Results - last 48 hr 04/24/24 04/25/24 06:10 05:32 POC Glucose 121 H 85 Imaging Radiology Impressions: ITS Impressions Brain MRI 09/19/23 20:33 IMPRESSION: 1. No demonstrated acute intracranial abnormalities. 2. Chronic mild to moderate nonspecific white matter changes, most notably in the deep white matter of the right frontal lobe. Mild to moderate generalized cerebral volume loss. Chest X-Ray 04/02/24 14:30 IMPRESSION: Moderate biapical pleural thickening. The lungs are clear. Electronically signed by: Matias Cormier MD 04/02/2024 03:12 PM [facility] Medications Medications Current Medications Acetaminophen (Acetaminophen 325 Mg Tablet) 650 mg PO Q6H PRN PRN Reason: Headache/Pain Mild Scale (1-3) Last Admin: 03/03/24 08:45 Dose: 650 mg Al Hydroxide/Mg Hydroxide (Magnesium Hydrox/Alum Hydrox 30 Ml Oral.Susp) 30 ml PO Q6H PRN PRN Reason: Heartburn/Nausea Last Admin: 11/27/23 10:48 Dose: 30 ml Aripiprazole (Aripiprazole Er 300 Mg Suser.Syr) 300 mg IM Q28D@0900 [facility] Last Admin: 04/01/24 12:16 Dose: 300 mg Benzocaine (Throat Lozenge, Medicated Lozenge) 1 lozenge MUCOUS MEM Q2H PRN PRN Reason: Sore Throat Last Admin: 12/30/23 20:59 Dose: 1 lozenge Benztropine Mesylate (Benztropine Mesylate 0.5 Mg Tablet) 0.5 mg PO TID PRN PRN Reason: Extrapyramidal Effects Glucose (Glucose Gel 15 Gm Gel..Gram.) 15 gm PO Q15M PRN; Protocol PRN Reason: per Hypoglycemia Standing Ord. Guaifenesin/Dextromethorphan (Guaifenesin Dm 100/10/5 Ml 5 Ml Syrup) 5 ml PO Q4H PRN PRN Reason: Cough Last Admin: 03/01/24 08:16 Dose: 5 ml Hydroxyzine HCl (Hydroxyzine Hcl 25 Mg Tablet) 25 mg PO Q6H PRN PRN Reason: Anxiety Last Admin: 04/25/24 08:33 Dose: 25 mg Insulin Glargine (Insulin Glargine,Hum.Rec.Anlog 100 Unit/Ml 10 Ml Vial) 20 unit SUBCUT BEDTIME [facility] Last Admin: 04/24/24 20:07 Dose: 20 unit Lamotrigine (Lamotrigine 100 Mg Tablet) 150 mg PO BEDTIME [facility] Last Admin: 04/24/24 20:07 Dose: 150 mg Levothyroxine Sodium (Levothyroxine Sodium 150 Mcg Tablet) 150 mcg PO DAILY@0600 [facility] Last Admin: 04/25/24 05:30 Dose: 150 mcg Magnesium Hydroxide (Milk Of Magnesia 30 Ml Oral.Susp) 30 ml PO DAILY PRN PRN Reason: Constipation Memantine (Memantine Hcl 5 Mg Tablet) 5 mg PO BID [facility] Last Admin: 04/25/24 08:33 Dose: 5 mg Metformin HCl (Metformin Hcl Er 500 Mg Tab.Er.24h) 1,000 mg PO DAILY@1700 [facility] Last Admin: 04/24/24 16:53 Dose: 1,000 mg Ondansetron HCl (Ondansetron Odt 8 Mg Tab.Rapdis) 8 mg TRANSLINGU Q8H PRN PRN Reason: Nausea and Vomiting Last Admin: 02/17/24 10:06 Dose: 8 mg Pseudoephedrine HCl (Pseudoephedrine Hcl 30 Mg Tablet) 30 mg PO Q4H PRN PRN Reason: Nasal Congestion Last Admin: 03/03/24 08:45 Dose: 30 mg Sertraline HCl (Sertraline Hcl 50 Mg Tablet) 50 mg PO DAILY [facility] Last Admin: 04/25/24 08:33 Dose: 50 mg Simethicone (Simethicone 80 Mg Tab.Chew) 80 mg PO QIDWMHS PRN PRN Reason: Gas Trazodone HCl (Trazodone Hcl 50 Mg Tablet) 50 mg PO BEDTIME MRX1 PRN PRN Reason: Insomnia Last Admin: 04/23/24 21:41 Dose: 50 mg Allergies Allergies Allergy/AdvReac Type Severity Reaction Status Date / Time amoxicillin [AMOXICILLIN] Allergy Mild VOMITING/ABD Verified 09/10/23 19:44 PAIN Assessment & Plan Assessment & Plan (1) Schizoaffective disorder: Status: Acute Code(s): F25.9 - Schizoaffective disorder, unspecified (2) Hypothyroidism: Status: Acute Code(s): E03.9 - Hypothyroidism, unspecified (3) Type 2 diabetes mellitus: Status: Acute Code(s): E11.9 - Type 2 diabetes mellitus without complications (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 Continue with same medications. 2. Waiting for placement. 04/25: Continue current management and treatment plan. Reason for continued inpatient stay Substantial Risk for: inability to function and rapid decompensation Time Spent With Patient Time: Total time managing care of this patient today ____ minutes.
[2024-04-25] MEDS: metFORMIN HCl ER 500 MG TAB.ER.24H 1000 MG PO (16:57)
[2024-04-25 19:46] VITALS: BP 129/73; PULSE 80; RESP 16; TEMP 36.1; O2SAT 99
[2024-04-25] MEDS: Insulin Glargine,Hum.rec.anlog 100 UNIT/ML 10 ML VIAL 20 UNIT SUBCUT (19:48)
[2024-04-25] MEDS: lamoTRIgine 100 MG TABLET 150 MG PO (19:48)
[2024-04-26] MEDS: Levothyroxine Sodium 150 MCG TABLET PO (05:38)
[2024-04-26 06:06] LABS: Glucose, Whole Blood 103 mg/dL (60-115)
[2024-04-26 07:46] VITALS: BP 116/78; PULSE 69; RESP 18; TEMP 36.9; O2SAT 98
[2024-04-26] MEDS: Sertraline HCL 50 MG TABLET PO (08:03)
[2024-04-26] MEDS: Memantine HCl 5 MG TABLET PO ×2 (08:03→19:46)
[2024-04-26] MEDS: hydrOXYzine HCL 25 MG TABLET PO (08:03)
--- NOTE | 2024-04-26 11:13 | P.PNPSI_ITS ---
Subjective Subjective Date of Service: 04/26/24 Reason For Visit: crisis Interim History: The nursing staff reported the patient had been pleasant, cooperative compliant with treatment. On interview the patient denies new symptoms, waiting for placement. He is visible on the unit. He is calm and pleasant. Eating and drinking well. Sleep is good. Review of Systems Review of Systems Unremarkable Yes all other systems are reviewed and are negative and unobtainable due to endotracheal tube Constitutional: Reports as per HPI Eyes: Reports as per HPI Reports as per HPI Cardiovascular: Reports as per HPI Respiratory: Reports as per HPI Gastrointestinal: Reports as per HPI Genitourinary: Reports as per HPI Musculoskeletal: Reports as per HPI Skin/Breast: Reports as per HPI Reports as per HPI Psychiatric: Reports as per HPI Endocrine: Reports as per HPI Hematologic/Lymphatic: Reports as per HPI Allergic/Immunologic: Reports as per HPI Mental Status Exam Mental Status Exam Narrative: Ante room. Mask. The patient is blunted with poverty of content. No overt suspiciousness. Denied hallucinations. Denied SI or HI. Difficulty with decision-making impaired insight judgment Patient Appearance: Appropriate Patient Orientation: Person and Situation Level of Consciousness: Awake and Appropriate Patient Behavior: Guarded and Passive Mood Description: Withdrawn Affect Description: Constricted Patient Cognition Impaired: Yes Ability to Follow Directions: Good Speech Pattern: Clear 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: Usp Impaired Diagnostics Vital Signs (24Hr): Vital Signs - 24 hr 04/25/24 19:46 04/26/24 07:46 Temperature 97 F 98.4 F Pulse Rate 80 69 Respiratory Rate 16 18 Blood Pressure 129/73 116/78 Pulse Oximetry 99 98 Oxygen Delivery Method Room Air Room Air BMI result Body Mass Index 31.4 Labs 09/10/23 20:00 04/23/24 08:21 Labs: Laboratory Results - last 48 hr 04/25/24 04/26/24 05:32 05:36 POC Glucose 85 103 Imaging Radiology Impressions: ITS Impressions Brain MRI 09/19/23 20:33 IMPRESSION: 1. No demonstrated acute intracranial abnormalities. 2. Chronic mild to moderate nonspecific white matter changes, most notably in the deep white matter of the right frontal lobe. Mild to moderate generalized cerebral volume loss. Chest X-Ray 04/02/24 14:30 IMPRESSION: Moderate biapical pleural thickening. The lungs are clear. Electronically signed by: Matias Cormier MD 04/02/2024 03:12 PM [facility] Medications Medications Current Medications Acetaminophen (Acetaminophen 325 Mg Tablet) 650 mg PO Q6H PRN PRN Reason: Headache/Pain Mild Scale (1-3) Last Admin: 03/03/24 08:45 Dose: 650 mg Al Hydroxide/Mg Hydroxide (Magnesium Hydrox/Alum Hydrox 30 Ml Oral.Susp) 30 ml PO Q6H PRN PRN Reason: Heartburn/Nausea Last Admin: 11/27/23 10:48 Dose: 30 ml Aripiprazole (Aripiprazole Er 300 Mg Suser.Syr) 300 mg IM Q28D@0900 [facility] Last Admin: 04/01/24 12:16 Dose: 300 mg Benzocaine (Throat Lozenge, Medicated Lozenge) 1 lozenge MUCOUS MEM Q2H PRN PRN Reason: Sore Throat Last Admin: 12/30/23 20:59 Dose: 1 lozenge Benztropine Mesylate (Benztropine Mesylate 0.5 Mg Tablet) 0.5 mg PO TID PRN PRN Reason: Extrapyramidal Effects Glucose (Glucose Gel 15 Gm Gel..Gram.) 15 gm PO Q15M PRN; Protocol PRN Reason: per Hypoglycemia Standing Ord. Guaifenesin/Dextromethorphan (Guaifenesin Dm 100/10/5 Ml 5 Ml Syrup) 5 ml PO Q4H PRN PRN Reason: Cough Last Admin: 03/01/24 08:16 Dose: 5 ml Hydroxyzine HCl (Hydroxyzine Hcl 25 Mg Tablet) 25 mg PO Q6H PRN PRN Reason: Anxiety Last Admin: 04/26/24 08:03 Dose: 25 mg Insulin Glargine (Insulin Glargine,Hum.Rec.Anlog 100 Unit/Ml 10 Ml Vial) 20 unit SUBCUT BEDTIME [facility] Last Admin: 04/25/24 19:48 Dose: 20 unit Lamotrigine (Lamotrigine 100 Mg Tablet) 150 mg PO BEDTIME [facility] Last Admin: 04/25/24 19:48 Dose: 150 mg Levothyroxine Sodium (Levothyroxine Sodium 150 Mcg Tablet) 150 mcg PO DAILY@0600 [facility] Last Admin: 04/26/24 05:38 Dose: 150 mcg Magnesium Hydroxide (Milk Of Magnesia 30 Ml Oral.Susp) 30 ml PO DAILY PRN PRN Reason: Constipation Memantine (Memantine Hcl 5 Mg Tablet) 5 mg PO BID [facility] Last Admin: 04/26/24 08:03 Dose: 5 mg Metformin HCl (Metformin Hcl Er 500 Mg Tab.Er.24h) 1,000 mg PO DAILY@1700 [facility] Last Admin: 04/25/24 16:57 Dose: 1,000 mg Ondansetron HCl (Ondansetron Odt 8 Mg Tab.Rapdis) 8 mg TRANSLINGU Q8H PRN PRN Reason: Nausea and Vomiting Last Admin: 02/17/24 10:06 Dose: 8 mg Pseudoephedrine HCl (Pseudoephedrine Hcl 30 Mg Tablet) 30 mg PO Q4H PRN PRN Reason: Nasal Congestion Last Admin: 03/03/24 08:45 Dose: 30 mg Sertraline HCl (Sertraline Hcl 50 Mg Tablet) 50 mg PO DAILY [facility] Last Admin: 04/26/24 08:03 Dose: 50 mg Simethicone (Simethicone 80 Mg Tab.Chew) 80 mg PO QIDWMHS PRN PRN Reason: Gas Trazodone HCl (Trazodone Hcl 50 Mg Tablet) 50 mg PO BEDTIME MRX1 PRN PRN Reason: Insomnia Last Admin: 04/23/24 21:41 Dose: 50 mg Allergies Allergies Allergy/AdvReac Type Severity Reaction Status Date / Time amoxicillin [AMOXICILLIN] Allergy Mild VOMITING/ABD Verified 09/10/23 19:44 PAIN Assessment & Plan Assessment & Plan (1) Schizoaffective disorder: Status: Acute Code(s): F25.9 - Schizoaffective disorder, unspecified (2) Hypothyroidism: Status: Acute Code(s): E03.9 - Hypothyroidism, unspecified (3) Type 2 diabetes mellitus: Status: Acute Code(s): E11.9 - Type 2 diabetes mellitus without complications (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 Continue with same medications. 2. Waiting for placement. 04/25: Continue current management and treatment plan. 04/26: continue current management and treatment plan. Reason for continued inpatient stay Substantial Risk for: inability to function, rapid decompensation and med/psych decompensation Time Spent With Patient Time: Total time managing care of this patient today ____ minutes.
[2024-04-26] MEDS: metFORMIN HCl ER 500 MG TAB.ER.24H 1000 MG PO (16:37)
[2024-04-26] MEDS: lamoTRIgine 100 MG TABLET 150 MG PO (19:45)
[2024-04-26] MEDS: Insulin Glargine,Hum.rec.anlog 100 UNIT/ML 10 ML VIAL 20 UNIT SUBCUT (19:46)
[2024-04-26 20:00] VITALS: BP 136/75; PULSE 76; TEMP 36.3; O2SAT 97
[2024-04-27] MEDS: Levothyroxine Sodium 150 MCG TABLET PO (05:23)
[2024-04-27 05:47] LABS: Glucose, Whole Blood 145 mg/dL (60-115)
[2024-04-27 09:01] VITALS: BP 119/74; PULSE 72; RESP 15; TEMP 36.8; O2SAT 94
[2024-04-27] MEDS: Sertraline HCL 50 MG TABLET PO (09:02)
[2024-04-27] MEDS: Memantine HCl 5 MG TABLET PO ×2 (09:02→20:58)
--- NOTE | 2024-04-27 09:47 | P.PNPSI_ITS ---
Subjective Subjective Date of Service: 04/27/24 Reason For Visit: crisis Subjective Notes: Conditional Voluntary Interim History: The nursing staff reported no changes in mental status compliant with treatment. On interview the patient denies new symptoms, waiting for placement. Mental Status Exam Mental Status Exam Patient Appearance: Appropriate Patient Orientation: Person and Situation Level of Consciousness: Awake and Appropriate Patient Behavior: Guarded and Passive Mood Description: Withdrawn Affect Description: Constricted Patient Cognition Impaired: Yes Ability to Follow Directions: Good Speech Pattern: Clear 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: None Delusions: Ideas of Reference Thought Process: Distracted and Slowed Thinking Thought Content: positive for [place] and positive for Poverty of Content Judgement: Fair Diagnostics Vital Signs (24Hr): Vital Signs - 24 hr 04/26/24 20:00 04/27/24 09:01 Temperature 97.3 F 98.2 F Pulse Rate 76 72 Respiratory Rate 15 Blood Pressure 136/75 119/74 Pulse Oximetry 97 94 Oxygen Delivery Method Room Air Room Air BMI result Body Mass Index 31.4 Labs 09/10/23 20:00 04/23/24 08:21 Labs: Laboratory Results - last 48 hr 04/26/24 04/27/24 05:36 05:21 POC Glucose 103 145 H Imaging Radiology Impressions: ITS Impressions Brain MRI 09/19/23 20:33 IMPRESSION: 1. No demonstrated acute intracranial abnormalities. 2. Chronic mild to moderate nonspecific white matter changes, most notably in the deep white matter of the right frontal lobe. Mild to moderate generalized cerebral volume loss. Chest X-Ray 04/02/24 14:30 IMPRESSION: Moderate biapical pleural thickening. The lungs are clear. Electronically signed by: Matias Cormier MD 04/02/2024 03:12 PM [facility] Medications Medications Current Medications Acetaminophen (Acetaminophen 325 Mg Tablet) 650 mg PO Q6H PRN PRN Reason: Headache/Pain Mild Scale (1-3) Last Admin: 03/03/24 08:45 Dose: 650 mg Al Hydroxide/Mg Hydroxide (Magnesium Hydrox/Alum Hydrox 30 Ml Oral.Susp) 30 ml PO Q6H PRN PRN Reason: Heartburn/Nausea Last Admin: 11/27/23 10:48 Dose: 30 ml Aripiprazole (Aripiprazole Er 300 Mg Suser.Syr) 300 mg IM Q28D@0900 [facility] Last Admin: 04/01/24 12:16 Dose: 300 mg Benzocaine (Throat Lozenge, Medicated Lozenge) 1 lozenge MUCOUS MEM Q2H PRN PRN Reason: Sore Throat Last Admin: 12/30/23 20:59 Dose: 1 lozenge Benztropine Mesylate (Benztropine Mesylate 0.5 Mg Tablet) 0.5 mg PO TID PRN PRN Reason: Extrapyramidal Effects Glucose (Glucose Gel 15 Gm Gel..Gram.) 15 gm PO Q15M PRN; Protocol PRN Reason: per Hypoglycemia Standing Ord. Guaifenesin/Dextromethorphan (Guaifenesin Dm 100/10/5 Ml 5 Ml Syrup) 5 ml PO Q4H PRN PRN Reason: Cough Last Admin: 03/01/24 08:16 Dose: 5 ml Hydroxyzine HCl (Hydroxyzine Hcl 25 Mg Tablet) 25 mg PO Q6H PRN PRN Reason: Anxiety Last Admin: 04/26/24 08:03 Dose: 25 mg Insulin Glargine (Insulin Glargine,Hum.Rec.Anlog 100 Unit/Ml 10 Ml Vial) 20 unit SUBCUT BEDTIME [facility] Last Admin: 04/26/24 19:46 Dose: 20 unit Lamotrigine (Lamotrigine 100 Mg Tablet) 150 mg PO BEDTIME [facility] Last Admin: 04/26/24 19:45 Dose: 150 mg Levothyroxine Sodium (Levothyroxine Sodium 150 Mcg Tablet) 150 mcg PO DAILY@0600 [facility] Last Admin: 04/27/24 05:23 Dose: 150 mcg Magnesium Hydroxide (Milk Of Magnesia 30 Ml Oral.Susp) 30 ml PO DAILY PRN PRN Reason: Constipation Memantine (Memantine Hcl 5 Mg Tablet) 5 mg PO BID [facility] Last Admin: 04/27/24 09:02 Dose: 5 mg Metformin HCl (Metformin Hcl Er 500 Mg Tab.Er.24h) 1,000 mg PO DAILY@1700 [facility] Last Admin: 04/26/24 16:37 Dose: 1,000 mg Ondansetron HCl (Ondansetron Odt 8 Mg Tab.Rapdis) 8 mg TRANSLINGU Q8H PRN PRN Reason: Nausea and Vomiting Last Admin: 02/17/24 10:06 Dose: 8 mg Pseudoephedrine HCl (Pseudoephedrine Hcl 30 Mg Tablet) 30 mg PO Q4H PRN PRN Reason: Nasal Congestion Last Admin: 03/03/24 08:45 Dose: 30 mg Sertraline HCl (Sertraline Hcl 50 Mg Tablet) 50 mg PO DAILY [facility] Last Admin: 04/27/24 09:02 Dose: 50 mg Simethicone (Simethicone 80 Mg Tab.Chew) 80 mg PO QIDWMHS PRN PRN Reason: Gas Trazodone HCl (Trazodone Hcl 50 Mg Tablet) 50 mg PO BEDTIME MRX1 PRN PRN Reason: Insomnia Last Admin: 04/23/24 21:41 Dose: 50 mg Allergies Allergies Allergy/AdvReac Type Severity Reaction Status Date / Time amoxicillin [AMOXICILLIN] Allergy Mild VOMITING/ABD Verified 09/10/23 19:44 PAIN Assessment & Plan Assessment & Plan (1) Schizoaffective disorder: Status: Acute Code(s): F25.9 - Schizoaffective disorder, unspecified (2) Hypothyroidism: Status: Acute Code(s): E03.9 - Hypothyroidism, unspecified (3) Type 2 diabetes mellitus: Status: Acute Code(s): E11.9 - Type 2 diabetes mellitus without complications (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 Continue with same medications. 2. Waiting for placement. Reason for continued inpatient stay Substantial Risk for: inability to function, rapid decompensation and med/psych decompensation Time Spent With Patient Time: Total time managing care of this patient today __20__ minutes.
[2024-04-27] MEDS: metFORMIN HCl ER 500 MG TAB.ER.24H 1000 MG PO (17:11)
[2024-04-27 20:00] VITALS: BP 115/61; PULSE 78; RESP 16; TEMP 37; O2SAT 95
[2024-04-27] MEDS: lamoTRIgine 100 MG TABLET 150 MG PO (20:58)
[2024-04-27] MEDS: Insulin Glargine,Hum.rec.anlog 100 UNIT/ML 10 ML VIAL 20 UNIT SUBCUT (21:00)
[2024-04-28] MEDS: Levothyroxine Sodium 150 MCG TABLET PO (05:51)
[2024-04-28 05:58] LABS: Glucose, Whole Blood 115 mg/dL (60-115)
[2024-04-28 09:11] VITALS: BP 112/60; PULSE 82; RESP 16; TEMP 36.8; O2SAT 94
[2024-04-28] MEDS: Memantine HCl 5 MG TABLET PO ×2 (09:12→21:41)
[2024-04-28] MEDS: Sertraline HCL 50 MG TABLET PO (09:12)
--- NOTE | 2024-04-28 10:26 | HO.PSYCHPN ---
Subjective Subjective Date of Service: 04/28/24 Reason For Visit: crisis Subjective Notes: Conditional Voluntary Interim History: The nursing staff reported no changes in his mental status compliant with treatment. On interview the patient denies new symptoms, waiting for placement. Mental Status Exam Mental Status Exam Patient Appearance: Appropriate Patient Orientation: Person and Situation Level of Consciousness: Awake and Appropriate Patient Behavior: Guarded and Passive Mood Description: Calm Affect Description: Constricted Patient Cognition Impaired: Yes Ability to Follow Directions: Good Speech Pattern: Clear 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: None Delusions: Ideas of Reference Thought Process: Distracted and Slowed Thinking Thought Content: positive for [place] and positive for Poverty of Content Judgement: Fair Diagnostics Vital Signs (24Hr): Vital Signs - 24 hr 04/27/24 20:00 04/28/24 09:11 Temperature 98.6 F 98.2 F Pulse Rate 78 82 Respiratory Rate 16 16 Blood Pressure 115/61 112/60 Pulse Oximetry 95 94 Oxygen Delivery Method Room Air Room Air BMI result Body Mass Index 31.4 Labs 09/10/23 20:00 04/23/24 08:21 Labs: Laboratory Results - last 48 hr 04/27/24 04/28/24 05:21 05:52 POC Glucose 145 H 115 Imaging Radiology Impressions: ITS Impressions Brain MRI 09/19/23 20:33 IMPRESSION: 1. No demonstrated acute intracranial abnormalities. 2. Chronic mild to moderate nonspecific white matter changes, most notably in the deep white matter of the right frontal lobe. Mild to moderate generalized cerebral volume loss. Chest X-Ray 04/02/24 14:30 IMPRESSION: Moderate biapical pleural thickening. The lungs are clear. Electronically signed by: Matias Cormier MD 04/02/2024 03:12 PM [facility] Medications Medications Current Medications Acetaminophen (Acetaminophen 325 Mg Tablet) 650 mg PO Q6H PRN PRN Reason: Headache/Pain Mild Scale (1-3) Last Admin: 03/03/24 08:45 Dose: 650 mg Al Hydroxide/Mg Hydroxide (Magnesium Hydrox/Alum Hydrox 30 Ml Oral.Susp) 30 ml PO Q6H PRN PRN Reason: Heartburn/Nausea Last Admin: 11/27/23 10:48 Dose: 30 ml Aripiprazole (Aripiprazole Er 300 Mg Suser.Syr) 300 mg IM Q28D@0900 MANAS Last Admin: 04/01/24 12:16 Dose: 300 mg Benzocaine (Throat Lozenge, Medicated Lozenge) 1 lozenge MUCOUS MEM Q2H PRN PRN Reason: Sore Throat Last Admin: 12/30/23 20:59 Dose: 1 lozenge Benztropine Mesylate (Benztropine Mesylate 0.5 Mg Tablet) 0.5 mg PO TID PRN PRN Reason: Extrapyramidal Effects Glucose (Glucose Gel 15 Gm Gel..Gram.) 15 gm PO Q15M PRN; Protocol PRN Reason: per Hypoglycemia Standing Ord. Guaifenesin/Dextromethorphan (Guaifenesin Dm 100/10/5 Ml 5 Ml Syrup) 5 ml PO Q4H PRN PRN Reason: Cough Last Admin: 03/01/24 08:16 Dose: 5 ml Hydroxyzine HCl (Hydroxyzine Hcl 25 Mg Tablet) 25 mg PO Q6H PRN PRN Reason: Anxiety Last Admin: 04/26/24 08:03 Dose: 25 mg Insulin Glargine (Insulin Glargine,Hum.Rec.Anlog 100 Unit/Ml 10 Ml Vial) 20 unit SUBCUT BEDTIME [facility] Last Admin: 04/27/24 21:00 Dose: 20 unit Lamotrigine (Lamotrigine 100 Mg Tablet) 150 mg PO BEDTIME [facility] Last Admin: 04/27/24 20:58 Dose: 150 mg Levothyroxine Sodium (Levothyroxine Sodium 150 Mcg Tablet) 150 mcg PO DAILY@0600 [facility] Last Admin: 04/28/24 05:51 Dose: 150 mcg Magnesium Hydroxide (Milk Of Magnesia 30 Ml Oral.Susp) 30 ml PO DAILY PRN PRN Reason: Constipation Memantine (Memantine Hcl 5 Mg Tablet) 5 mg PO BID [facility] Last Admin: 04/28/24 09:12 Dose: 5 mg Metformin HCl (Metformin Hcl Er 500 Mg Tab.Er.24h) 1,000 mg PO DAILY@1700 [facility] Last Admin: 04/27/24 17:11 Dose: 1,000 mg Ondansetron HCl (Ondansetron Odt 8 Mg Tab.Rapdis) 8 mg TRANSLINGU Q8H PRN PRN Reason: Nausea and Vomiting Last Admin: 02/17/24 10:06 Dose: 8 mg Pseudoephedrine HCl (Pseudoephedrine Hcl 30 Mg Tablet) 30 mg PO Q4H PRN PRN Reason: Nasal Congestion Last Admin: 03/03/24 08:45 Dose: 30 mg Sertraline HCl (Sertraline Hcl 50 Mg Tablet) 50 mg PO DAILY [facility] Last Admin: 04/28/24 09:12 Dose: 50 mg Simethicone (Simethicone 80 Mg Tab.Chew) 80 mg PO QIDWMHS PRN PRN Reason: Gas Trazodone HCl (Trazodone Hcl 50 Mg Tablet) 50 mg PO BEDTIME MRX1 PRN PRN Reason: Insomnia Last Admin: 04/23/24 21:41 Dose: 50 mg Allergies Allergies Allergy/AdvReac Type Severity Reaction Status Date / Time amoxicillin [AMOXICILLIN] Allergy Mild VOMITING/ABD Verified 09/10/23 19:44 PAIN Assessment & Plan Assessment & Plan (1) Schizoaffective disorder: Status: Acute Code(s): F25.9 - Schizoaffective disorder, unspecified (2) Hypothyroidism: Status: Acute Code(s): E03.9 - Hypothyroidism, unspecified (3) Type 2 diabetes mellitus: Status: Acute Code(s): E11.9 - Type 2 diabetes mellitus without complications (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 Continue with same medications. 2. Waiting for placement. Reason for continued inpatient stay Substantial Risk for: inability to function, rapid decompensation and med/psych decompensation Time Spent With Patient Time: Total time managing care of this patient today __20__ minutes.
[2024-04-28] MEDS: metFORMIN HCl ER 500 MG TAB.ER.24H 1000 MG PO (16:09)
[2024-04-28 20:00] VITALS: BP 114/72; PULSE 75; RESP 18; TEMP 36.4; O2SAT 94
[2024-04-28] MEDS: traZODone HCL 50 MG TABLET PO (21:41)
[2024-04-28] MEDS: Insulin Glargine,Hum.rec.anlog 100 UNIT/ML 10 ML VIAL 20 UNIT SUBCUT (21:41)
[2024-04-28] MEDS: lamoTRIgine 100 MG TABLET 150 MG PO (21:41)
[2024-04-29] MEDS: Levothyroxine Sodium 150 MCG TABLET PO (05:54)
[2024-04-29 06:09] LABS: Glucose, Whole Blood 95 mg/dL (60-115)
[2024-04-29 08:00] VITALS: BP 127/82; PULSE 64; TEMP 36.7; O2SAT 97
[2024-04-29] MEDS: Sertraline HCL 50 MG TABLET PO (08:32)
[2024-04-29] MEDS: Memantine HCl 5 MG TABLET PO ×2 (08:32→20:43)
[2024-04-29] MEDS: ARIPIPRAZOLE 300 MG IM (09:58)
--- NOTE | 2024-04-29 10:54 | P.PNPSI_ITS ---
Subjective Subjective Date of Service: 04/29/24 Reason For Visit: crisis Subjective Notes: Conditional Voluntary Interim History: The nursing staff reported the patient had been compliant with treatment no change in mental status. The criminal justice social worker reported [facility], most likely he could be discharged pretty soon. On interview the patient denies new symptoms waiting for placement. Mental Status Exam Mental Status Exam Patient Appearance: Well Grooomed and Appropriate Patient Orientation: Person and Situation Level of Consciousness: Awake and Appropriate Patient Behavior: Appropriate and Cooperative Mood Description: Calm Affect Description: Constricted Patient Cognition Impaired: Yes Ability to Follow Directions: Good Speech Pattern: Clear 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: None Delusions: Not Present Thought Process: Distracted and Slowed Thinking Thought Content: positive for [place] and positive for Poverty of Content Judgement: Fair Diagnostics Vital Signs (24Hr): Vital Signs - 24 hr 04/28/24 20:00 04/29/24 08:00 Temperature 97.5 F 98.1 F Pulse Rate 75 64 Respiratory Rate 18 Blood Pressure 114/72 127/82 Pulse Oximetry 94 97 Oxygen Delivery Method Room Air Room Air BMI result Body Mass Index 31.4 Labs 09/10/23 20:00 04/23/24 08:21 Labs: Laboratory Results - last 48 hr 04/28/24 04/29/24 05:52 05:53 POC Glucose 115 95 Imaging Radiology Impressions: ITS Impressions Brain MRI 09/19/23 20:33 IMPRESSION: 1. No demonstrated acute intracranial abnormalities. 2. Chronic mild to moderate nonspecific white matter changes, most notably in the deep white matter of the right frontal lobe. Mild to moderate generalized cerebral volume loss. Chest X-Ray 04/02/24 14:30 IMPRESSION: Moderate biapical pleural thickening. The lungs are clear. Electronically signed by: Matias Cormier MD 04/02/2024 03:12 PM [facility] [place] Medications Current Medications Acetaminophen (Acetaminophen 325 Mg Tablet) 650 mg PO Q6H PRN PRN Reason: Headache/Pain Mild Scale (1-3) Last Admin: 03/03/24 08:45 Dose: 650 mg Al Hydroxide/Mg Hydroxide (Magnesium Hydrox/Alum Hydrox 30 Ml Oral.Susp) 30 ml PO Q6H PRN PRN Reason: Heartburn/Nausea Last Admin: 11/27/23 10:48 Dose: 30 ml Aripiprazole (Aripiprazole Er 300 Mg Suser.Syr) 300 mg IM Q28D@0900 [facility] Last Admin: 04/29/24 09:58 Dose: 300 mg Benzocaine (Throat Lozenge, Medicated Lozenge) 1 lozenge MUCOUS MEM Q2H PRN PRN Reason: Sore Throat Last Admin: 12/30/23 20:59 Dose: 1 lozenge Benztropine Mesylate (Benztropine Mesylate 0.5 Mg Tablet) 0.5 mg PO TID PRN PRN Reason: Extrapyramidal Effects Glucose (Glucose Gel 15 Gm Gel..Gram.) 15 gm PO Q15M PRN; Protocol PRN Reason: per Hypoglycemia Standing Ord. Guaifenesin/Dextromethorphan (Guaifenesin Dm 100/10/5 Ml 5 Ml Syrup) 5 ml PO Q4H PRN PRN Reason: Cough Last Admin: 03/01/24 08:16 Dose: 5 ml Hydroxyzine HCl (Hydroxyzine Hcl 25 Mg Tablet) 25 mg PO Q6H PRN PRN Reason: Anxiety Last Admin: 04/26/24 08:03 Dose: 25 mg Insulin Glargine (Insulin Glargine,Hum.Rec.Anlog 100 Unit/Ml 10 Ml Vial) 20 unit SUBCUT BEDTIME [facility] Last Admin: 04/28/24 21:41 Dose: 20 unit Lamotrigine (Lamotrigine 100 Mg Tablet) 150 mg PO BEDTIME [facility] Last Admin: 04/28/24 21:41 Dose: 150 mg Levothyroxine Sodium (Levothyroxine Sodium 150 Mcg Tablet) 150 mcg PO DAILY@0600 [facility] Last Admin: 04/29/24 05:54 Dose: 150 mcg Magnesium Hydroxide (Milk Of Magnesia 30 Ml Oral.Susp) 30 ml PO DAILY PRN PRN Reason: Constipation Memantine (Memantine Hcl 5 Mg Tablet) 5 mg PO BID [facility] Last Admin: 04/29/24 08:32 Dose: 5 mg Metformin HCl (Metformin Hcl Er 500 Mg Tab.Er.24h) 1,000 mg PO DAILY@1700 [facility] Last Admin: 04/28/24 16:09 Dose: 1,000 mg Ondansetron HCl (Ondansetron Odt 8 Mg Tab.Rapdis) 8 mg TRANSLINGU Q8H PRN PRN Reason: Nausea and Vomiting Last Admin: 02/17/24 10:06 Dose: 8 mg Pseudoephedrine HCl (Pseudoephedrine Hcl 30 Mg Tablet) 30 mg PO Q4H PRN PRN Reason: Nasal Congestion Last Admin: 03/03/24 08:45 Dose: 30 mg Sertraline HCl (Sertraline Hcl 50 Mg Tablet) 50 mg PO DAILY [facility] Last Admin: 04/29/24 08:32 Dose: 50 mg Simethicone (Simethicone 80 Mg Tab.Chew) 80 mg PO QIDWMHS PRN PRN Reason: Gas Trazodone HCl (Trazodone Hcl 50 Mg Tablet) 50 mg PO BEDTIME MRX1 PRN PRN Reason: Insomnia Last Admin: 04/28/24 21:41 Dose: 50 mg Allergies Allergies Allergy/AdvReac Type Severity Reaction Status Date / Time amoxicillin [AMOXICILLIN] Allergy Mild VOMITING/ABD Verified 09/10/23 19:44 PAIN Assessment & Plan Assessment & Plan (1) Schizoaffective disorder: Status: Acute Code(s): F25.9 - Schizoaffective disorder, unspecified (2) Hypothyroidism: Status: Acute Code(s): E03.9 - Hypothyroidism, unspecified (3) Type 2 diabetes mellitus: Status: Acute Code(s): E11.9 - Type 2 diabetes mellitus without complications (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 Continue with same medications. 2. Waiting for placement. Reason for continued inpatient stay Substantial Risk for: inability to function, rapid decompensation and med/psych decompensation Time Spent With Patient Time: Total time managing care of this patient today __20__ minutes.
[2024-04-29] MEDS: metFORMIN HCl ER 500 MG TAB.ER.24H 1000 MG PO (16:33)
[2024-04-29 20:00] VITALS: BP 126/69; PULSE 76; RESP 17; TEMP 36.9; O2SAT 94
[2024-04-29] MEDS: Insulin Glargine,Hum.rec.anlog 100 UNIT/ML 10 ML VIAL 20 UNIT SUBCUT (20:41)
[2024-04-29] MEDS: lamoTRIgine 100 MG TABLET 150 MG PO (20:42)
[2024-04-29] MEDS: traZODone HCL 50 MG TABLET PO (20:43)
[2024-04-30] MEDS: Levothyroxine Sodium 150 MCG TABLET PO (06:07)
[2024-04-30 06:50] LABS: Glucose, Whole Blood 125 mg/dL (60-115)
[2024-04-30 08:00] VITALS: BP 130/75; PULSE 86; RESP 15; TEMP 36.2; O2SAT 96
[2024-04-30] MEDS: Sertraline HCL 50 MG TABLET PO (08:21)
[2024-04-30] MEDS: Memantine HCl 5 MG TABLET PO ×2 (08:21→20:55)
[2024-04-30 09:10] LABS: Creatinine Clr Calc Pharmacy 97.3; Estimated Glomerular Filt Rate > 60
--- NOTE | 2024-04-30 11:11 | P.PNPSI_ITS ---
Subjective Subjective Date of Service: 04/30/24 Reason For Visit: crisis Subjective Notes: Conditional Voluntary Mental Status Exam Mental Status Exam Patient Appearance: Appropriate Patient Orientation: Person and Situation Level of Consciousness: Awake and Appropriate Patient Behavior: Guarded and Passive Mood Description: Withdrawn Affect Description: Constricted Patient Cognition Impaired: Yes Ability to Follow Directions: Good Speech Pattern: Clear 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: None Delusions: Not Present Thought Process: Distracted and Slowed Thinking Thought Content: positive for [place] and positive for Poverty of Content Judgement: Fair Diagnostics Vital Signs (24Hr): Vital Signs - 24 hr 04/29/24 20:00 04/30/24 08:00 Temperature 98.4 F Pulse Rate 76 86 Respiratory Rate 17 15 Blood Pressure 126/69 130/75 Pulse Oximetry 94 96 Oxygen Delivery Method Room Air Room Air BMI result Body Mass Index 31.4 Labs 09/10/23 20:00 04/30/24 08:52 Labs: Laboratory Results - last 48 hr 04/29/24 04/30/24 04/30/24 05:53 06:45 08:52 Creatinine 0.93 Estim Creat Clear Calc 97.3 Estimated GFR > 60 POC Glucose 95 125 H Imaging Radiology Impressions: ITS Impressions Brain MRI 09/19/23 20:33 IMPRESSION: 1. No demonstrated acute intracranial abnormalities. 2. Chronic mild to moderate nonspecific white matter changes, most notably in the deep white matter of the right frontal lobe. Mild to moderate generalized cerebral volume loss. Chest X-Ray 04/02/24 14:30 IMPRESSION: Moderate biapical pleural thickening. The lungs are clear. Electronically signed by: Matias Cormier MD 04/02/2024 03:12 [place] [facility] [place] Medications Current Medications Acetaminophen (Acetaminophen 325 Mg Tablet) 650 mg PO Q6H PRN PRN Reason: Headache/Pain Mild Scale (1-3) Last Admin: 03/03/24 08:45 Dose: 650 mg Al Hydroxide/Mg Hydroxide (Magnesium Hydrox/Alum Hydrox 30 Ml Oral.Susp) 30 ml PO Q6H PRN PRN Reason: Heartburn/Nausea Last Admin: 11/27/23 10:48 Dose: 30 ml Aripiprazole (Aripiprazole Er 300 Mg Suser.Syr) 300 mg IM Q28D@0900 [facility] Last Admin: 04/29/24 09:58 Dose: 300 mg Benzocaine (Throat Lozenge, Medicated Lozenge) 1 lozenge MUCOUS MEM Q2H PRN PRN Reason: Sore Throat Last Admin: 12/30/23 20:59 Dose: 1 lozenge Benztropine Mesylate (Benztropine Mesylate 0.5 Mg Tablet) 0.5 mg PO TID PRN PRN Reason: Extrapyramidal Effects Glucose (Glucose Gel 15 Gm Gel..Gram.) 15 gm PO Q15M PRN; Protocol PRN Reason: per Hypoglycemia Standing Ord. Guaifenesin/Dextromethorphan (Guaifenesin Dm 100/10/5 Ml 5 Ml Syrup) 5 ml PO Q4H PRN PRN Reason: Cough Last Admin: 03/01/24 08:16 Dose: 5 ml Hydroxyzine HCl (Hydroxyzine Hcl 25 Mg Tablet) 25 mg PO Q6H PRN PRN Reason: Anxiety Last Admin: 04/26/24 08:03 Dose: 25 mg Insulin Glargine (Insulin Glargine,Hum.Rec.Anlog 100 Unit/Ml 10 Ml Vial) 20 unit SUBCUT BEDTIME [facility] Last Admin: 04/29/24 20:41 Dose: 20 unit Lamotrigine (Lamotrigine 100 Mg Tablet) 150 mg PO BEDTIME [facility] Last Admin: 04/29/24 20:42 Dose: 150 mg Levothyroxine Sodium (Levothyroxine Sodium 150 Mcg Tablet) 150 mcg PO DAILY@0600 [facility] Last Admin: 04/30/24 06:07 Dose: 150 mcg Magnesium Hydroxide (Milk Of Magnesia 30 Ml Oral.Susp) 30 ml PO DAILY PRN PRN Reason: Constipation Memantine (Memantine Hcl 5 Mg Tablet) 5 mg PO BID [facility] Last Admin: 04/30/24 08:21 Dose: 5 mg Metformin HCl (Metformin Hcl Er 500 Mg Tab.Er.24h) 1,000 mg PO DAILY@1700 [facility] Last Admin: 04/29/24 16:33 Dose: 1,000 mg Ondansetron HCl (Ondansetron Odt 8 Mg Tab.Rapdis) 8 mg TRANSLINGU Q8H PRN PRN Reason: Nausea and Vomiting Last Admin: 02/17/24 10:06 Dose: 8 mg Pseudoephedrine HCl (Pseudoephedrine Hcl 30 Mg Tablet) 30 mg PO Q4H PRN PRN Reason: Nasal Congestion Last Admin: 03/03/24 08:45 Dose: 30 mg Sertraline HCl (Sertraline Hcl 50 Mg Tablet) 50 mg PO DAILY [facility] Last Admin: 04/30/24 08:21 Dose: 50 mg Simethicone (Simethicone 80 Mg Tab.Chew) 80 mg PO QIDWMHS PRN PRN Reason: Gas Trazodone HCl (Trazodone Hcl 50 Mg Tablet) 50 mg PO BEDTIME MRX1 PRN PRN Reason: Insomnia Last Admin: 04/29/24 20:43 Dose: 50 mg Allergies Allergies Allergy/AdvReac Type Severity Reaction Status Date / Time amoxicillin [AMOXICILLIN] Allergy Mild VOMITING/ABD Verified 09/10/23 19:44 PAIN Assessment & Plan Assessment & Plan (1) Schizoaffective disorder: Status: Acute Code(s): F25.9 - Schizoaffective disorder, unspecified (2) Hypothyroidism: Status: Acute Code(s): E03.9 - Hypothyroidism, unspecified (3) Type 2 diabetes mellitus: Status: Acute Code(s): E11.9 - Type 2 diabetes mellitus without complications (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 Continue with same medications. 2. Waiting for placement. Reason for continued inpatient stay Substantial Risk for: inability to function, rapid decompensation and med/psych decompensation Time Spent With Patient Time: Total time managing care of this patient today __20__ minutes.
[2024-04-30 13:28] VITALS: BMI 31.8
[2024-04-30] MEDS: metFORMIN HCl ER 500 MG TAB.ER.24H 1000 MG PO (17:23)
[2024-04-30 20:00] VITALS: BP 121/72; PULSE 79; RESP 16; TEMP 36.6; O2SAT 94
[2024-04-30] MEDS: lamoTRIgine 100 MG TABLET 150 MG PO (20:55)
[2024-04-30] MEDS: Insulin Glargine,Hum.rec.anlog 100 UNIT/ML 10 ML VIAL 20 UNIT SUBCUT (20:57)
[2024-05-01] MEDS: Levothyroxine Sodium 150 MCG TABLET PO (06:08)
[2024-05-01 06:15] LABS: Glucose, Whole Blood 126 mg/dL (60-115)
[2024-05-01 08:00] VITALS: BP 140/71; PULSE 90; RESP 19; TEMP 36.9; O2SAT 97
[2024-05-01] MEDS: Memantine HCl 5 MG TABLET PO ×2 (09:40→20:31)
[2024-05-01] MEDS: Sertraline HCL 50 MG TABLET PO (09:40)
--- NOTE | 2024-05-01 15:35 | P.PNPSI_ITS ---
Subjective Subjective Date of Service: 05/01/24 Reason For Visit: crisis Subjective Notes: Conditional Voluntary Interim History: The nursing staff reported the patient had been compliant with treatment no changes in his mental status. The social media executive reported that he will be transferred to facility next Saturday. On interview the patient denies new symptoms, waiting for placement. Mental Status Exam Mental Status Exam Patient Appearance: Appropriate Patient Orientation: Person and Situation Level of Consciousness: Awake and Appropriate Patient Behavior: Guarded and Passive Mood Description: Withdrawn Affect Description: Constricted Patient Cognition Impaired: Yes Ability to Follow Directions: Good Speech Pattern: Clear 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: None Delusions: Not Present Thought Process: Distracted and Slowed Thinking Thought Content: positive for [place] and positive for Poverty of Content Judgement: Fair Diagnostics Vital Signs (24Hr): Vital Signs - 24 hr 04/30/24 20:00 05/01/24 08:00 Temperature 97.8 F 98.5 F Pulse Rate 79 90 Respiratory Rate 16 19 Blood Pressure 121/72 140/71 H Pulse Oximetry 94 97 Oxygen Delivery Method Room Air Room Air BMI result Body Mass Index 31.8 Labs 09/10/23 20:00 04/30/24 08:52 Labs: Laboratory Results - last 48 hr 04/30/24 04/30/24 05/01/24 06:45 08:52 06:09 Creatinine 0.93 Estim Creat Clear Calc 97.3 Estimated GFR > 60 POC Glucose 125 H 126 H Imaging Radiology Impressions: ITS Impressions Brain MRI 09/19/23 20:33 IMPRESSION: 1. No demonstrated acute intracranial abnormalities. 2. Chronic mild to moderate nonspecific white matter changes, most notably in the deep white matter of the right frontal lobe. Mild to moderate generalized cerebral volume loss. Chest X-Ray 04/02/24 14:30 IMPRESSION: Moderate biapical pleural thickening. The lungs are clear. Electronically signed by: Matias Cormier MD 04/02/2024 03:12 PM [facility] [place] Medications Medications Current Medications Acetaminophen (Acetaminophen 325 Mg Tablet) 650 mg PO Q6H PRN PRN Reason: Headache/Pain Mild Scale (1-3) Last Admin: 03/03/24 08:45 Dose: 650 mg Al Hydroxide/Mg Hydroxide (Magnesium Hydrox/Alum Hydrox 30 Ml Oral.Susp) 30 ml PO Q6H PRN PRN Reason: Heartburn/Nausea Last Admin: 11/27/23 10:48 Dose: 30 ml Aripiprazole (Aripiprazole Er 300 Mg Suser.Syr) 300 mg IM Q28D@0900 [facility] Last Admin: 04/29/24 09:58 Dose: 300 mg Benzocaine (Throat Lozenge, Medicated Lozenge) 1 lozenge MUCOUS MEM Q2H PRN PRN Reason: Sore Throat Last Admin: 12/30/23 20:59 Dose: 1 lozenge Benztropine Mesylate (Benztropine Mesylate 0.5 Mg Tablet) 0.5 mg PO TID PRN PRN Reason: Extrapyramidal Effects Glucose (Glucose Gel 15 Gm Gel..Gram.) 15 gm PO Q15M PRN; Protocol PRN Reason: per Hypoglycemia Standing Ord. Guaifenesin/Dextromethorphan (Guaifenesin Dm 100/10/5 Ml 5 Ml Syrup) 5 ml PO Q4H PRN PRN Reason: Cough Last Admin: 03/01/24 08:16 Dose: 5 ml Hydroxyzine HCl (Hydroxyzine Hcl 25 Mg Tablet) 25 mg PO Q6H PRN PRN Reason: Anxiety Last Admin: 04/26/24 08:03 Dose: 25 mg Insulin Glargine (Insulin Glargine,Hum.Rec.Anlog 100 Unit/Ml 10 Ml Vial) 20 unit SUBCUT BEDTIME [facility] Last Admin: 04/30/24 20:57 Dose: 20 unit Lamotrigine (Lamotrigine 100 Mg Tablet) 150 mg PO BEDTIME [facility] Last Admin: 04/30/24 20:55 Dose: 150 mg Levothyroxine Sodium (Levothyroxine Sodium 150 Mcg Tablet) 150 mcg PO DAILY@0600 [facility] Last Admin: 05/01/24 06:08 Dose: 150 mcg Magnesium Hydroxide (Milk Of Magnesia 30 Ml Oral.Susp) 30 ml PO DAILY PRN PRN Reason: Constipation Memantine (Memantine Hcl 5 Mg Tablet) 5 mg PO BID [facility] Last Admin: 05/01/24 09:40 Dose: 5 mg Metformin HCl (Metformin Hcl Er 500 Mg Tab.Er.24h) 1,000 mg PO DAILY@1700 [facility] Last Admin: 04/30/24 17:23 Dose: 1,000 mg Ondansetron HCl (Ondansetron Odt 8 Mg Tab.Rapdis) 8 mg TRANSLINGU Q8H PRN PRN Reason: Nausea and Vomiting Last Admin: 02/17/24 10:06 Dose: 8 mg Pseudoephedrine HCl (Pseudoephedrine Hcl 30 Mg Tablet) 30 mg PO Q4H PRN PRN Reason: Nasal Congestion Last Admin: 03/03/24 08:45 Dose: 30 mg Sertraline HCl (Sertraline Hcl 50 Mg Tablet) 50 mg PO DAILY [facility]NAS Last Admin: 05/01/24 09:40 Dose: 50 mg Simethicone (Simethicone 80 Mg Tab.Chew) 80 mg PO QIDWMHS PRN PRN Reason: Gas Trazodone HCl (Trazodone Hcl 50 Mg Tablet) 50 mg PO BEDTIME MRX1 PRN PRN Reason: Insomnia Last Admin: 04/29/24 20:43 Dose: 50 mg Allergies Allergies Allergy/AdvReac Type Severity Reaction Status Date / Time amoxicillin [AMOXICILLIN] Allergy Mild VOMITING/ABD Verified 09/10/23 19:44 PAIN Assessment & Plan Assessment & Plan (1) Schizoaffective disorder: Status: Acute Code(s): F25.9 - Schizoaffective disorder, unspecified (2) Hypothyroidism: Status: Acute Code(s): E03.9 - Hypothyroidism, unspecified (3) Type 2 diabetes mellitus: Status: Acute Code(s): E11.9 - Type 2 diabetes mellitus without complications (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 Continue with same medications. 2. Waiting for placement. Reason for continued inpatient stay Substantial Risk for: inability to function, rapid decompensation and med/psych decompensation Time Spent With Patient Time: Total time managing care of this patient today ___20_ minutes.
[2024-05-01] MEDS: metFORMIN HCl ER 500 MG TAB.ER.24H 1000 MG PO (16:44)
[2024-05-01 20:00] VITALS: BP 124/69; PULSE 85; RESP 16; TEMP 36.3; O2SAT 97
[2024-05-01] MEDS: lamoTRIgine 100 MG TABLET 150 MG PO (20:31)
[2024-05-01] MEDS: traZODone HCL 50 MG TABLET PO (20:32)
[2024-05-01] MEDS: Insulin Glargine,Hum.rec.anlog 100 UNIT/ML 10 ML VIAL 20 UNIT SUBCUT (20:37)
[2024-05-02] MEDS: Levothyroxine Sodium 150 MCG TABLET PO (06:17)
[2024-05-02 06:40] LABS: Glucose, Whole Blood 115 mg/dL (60-115)
[2024-05-02 08:00] VITALS: BP 138/72; PULSE 80; RESP 18; TEMP 36.6; O2SAT 97
[2024-05-02] MEDS: Sertraline HCL 50 MG TABLET PO (09:13)
[2024-05-02] MEDS: Memantine HCl 5 MG TABLET PO ×2 (09:14→20:54)
[2024-05-02] MEDS: Throat Lozenge, Medicated LOZENGE 1 LOZENGE MUCOUS MEM (12:11)
[2024-05-02] MEDS: guaiFENesin DM 100/10/5 ML 5 ML SYRUP PO (12:11)
[2024-05-02] MEDS: Acetaminophen 325 MG TABLET 650 MG PO (12:24)
[2024-05-02] MEDS: metFORMIN HCl ER 500 MG TAB.ER.24H 1000 MG PO (16:16)
--- NOTE | 2024-05-02 17:09 | HO.PSYCHPN ---
Subjective Subjective Date of Service: 05/02/24 Reason For Visit: crisis Interim History: calm, cooperative, pleasant. no questions or complaints. per staff, some anxiety re DC saturday. calm, pleasant, cooperative. Mental Status Exam Mental Status Exam Patient Appearance: Appropriate Patient Orientation: Person and Situation Level of Consciousness: Awake and Appropriate Patient Behavior: Guarded and Passive Mood Description: Withdrawn Affect Description: Constricted Patient Cognition Impaired: Yes Ability to Follow Directions: Good Speech Pattern: Clear 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: None Delusions: Not Present Thought Process: Distracted and Slowed Thinking Thought Content: positive for [place] and positive for Poverty of Content Judgement: Fair Diagnostics Vital Signs (24Hr): Vital Signs - 24 hr 05/01/24 20:00 05/02/24 08:00 Temperature 97.3 F 98 F Pulse Rate 85 80 Respiratory Rate 16 18 Blood Pressure 124/69 138/72 Pulse Oximetry 97 97 Oxygen Delivery Method Room Air Room Air BMI result Body Mass Index 31.8 Labs 09/10/23 20:00 04/30/24 08:52 Labs: Laboratory Results - last 48 hr 05/01/24 05/02/24 06:09 06:34 POC Glucose 126 H 115 Imaging Radiology Impressions: ITS Impressions Brain MRI 09/19/23 20:33 IMPRESSION: 1. No demonstrated acute intracranial abnormalities. 2. Chronic mild to moderate nonspecific white matter changes, most notably in the deep white matter of the right frontal lobe. Mild to moderate generalized cerebral volume loss. Chest X-Ray 04/02/24 14:30 IMPRESSION: Moderate biapical pleural thickening. The lungs are clear. Electronically signed by: Matias Cormier MD 04/02/2024 03:12 PM [facility] Medications Medications Current Medications Acetaminophen (Acetaminophen 325 Mg Tablet) 650 mg PO Q6H PRN PRN Reason: Headache/Pain Mild Scale (1-3) Last Admin: 05/02/24 12:24 Dose: 650 mg Al Hydroxide/Mg Hydroxide (Magnesium Hydrox/Alum Hydrox 30 Ml Oral.Susp) 30 ml PO Q6H PRN PRN Reason: Heartburn/Nausea Last Admin: 11/27/23 10:48 Dose: 30 ml Aripiprazole (Aripiprazole Er 300 Mg Suser.Syr) 300 mg IM Q28D@0900 MANAS Last Admin: 04/29/24 09:58 Dose: 300 mg Benzocaine (Throat Lozenge, Medicated Lozenge) 1 lozenge MUCOUS MEM Q2H PRN PRN Reason: Sore Throat Last Admin: 05/02/24 12:11 Dose: 1 lozenge Benztropine Mesylate (Benztropine Mesylate 0.5 Mg Tablet) 0.5 mg PO TID PRN PRN Reason: Extrapyramidal Effects Glucose (Glucose Gel 15 Gm Gel..Gram.) 15 gm PO Q15M PRN; Protocol PRN Reason: per Hypoglycemia Standing Ord. Guaifenesin/Dextromethorphan (Guaifenesin Dm 100/10/5 Ml 5 Ml Syrup) 5 ml PO Q4H PRN PRN Reason: Cough Last Admin: 05/02/24 12:11 Dose: 5 ml Hydroxyzine HCl (Hydroxyzine Hcl 25 Mg Tablet) 25 mg PO Q6H PRN PRN Reason: Anxiety Last Admin: 04/26/24 08:03 Dose: 25 mg Insulin Glargine (Insulin Glargine,Hum.Rec.Anlog 100 Unit/Ml 10 Ml Vial) 20 unit SUBCUT BEDTIME [facility] Last Admin: 05/01/24 20:37 Dose: 20 unit Lamotrigine (Lamotrigine 100 Mg Tablet) 150 mg PO BEDTIME [facility] Last Admin: 05/01/24 20:31 Dose: 150 mg Levothyroxine Sodium (Levothyroxine Sodium 150 Mcg Tablet) 150 mcg PO DAILY@0600 [facility] Last Admin: 05/02/24 06:17 Dose: 150 mcg Magnesium Hydroxide (Milk Of Magnesia 30 Ml Oral.Susp) 30 ml PO DAILY PRN PRN Reason: Constipation Memantine (Memantine Hcl 5 Mg Tablet) 5 mg PO BID [facility] Last Admin: 05/02/24 09:14 Dose: 5 mg Metformin HCl (Metformin Hcl Er 500 Mg Tab.Er.24h) 1,000 mg PO DAILY@1700 [facility] Last Admin: 05/02/24 16:16 Dose: 1,000 mg Ondansetron HCl (Ondansetron Odt 8 Mg Tab.Rapdis) 8 mg TRANSLINGU Q8H PRN PRN Reason: Nausea and Vomiting Last Admin: 02/17/24 10:06 Dose: 8 mg Pseudoephedrine HCl (Pseudoephedrine Hcl 30 Mg Tablet) 30 mg PO Q4H PRN PRN Reason: Nasal Congestion Last Admin: 03/03/24 08:45 Dose: 30 mg Sertraline HCl (Sertraline Hcl 50 Mg Tablet) 50 mg PO DAILY MANAS Last Admin: 05/02/24 09:13 Dose: 50 mg Simethicone (Simethicone 80 Mg Tab.Chew) 80 mg PO QIDWMHS PRN PRN Reason: Gas Trazodone HCl (Trazodone Hcl 50 Mg Tablet) 50 mg PO BEDTIME MRX1 PRN PRN Reason: Insomnia Last Admin: 05/01/24 20:32 Dose: 50 mg Allergies Allergies Allergy/AdvReac Type Severity Reaction Status Date / Time amoxicillin [AMOXICILLIN] Allergy Mild VOMITING/ABD Verified 09/10/23 19:44 PAIN Assessment & Plan Assessment & Plan (1) Schizoaffective disorder: Status: Acute Code(s): F25.9 - Schizoaffective disorder, unspecified (2) Hypothyroidism: Status: Acute Code(s): E03.9 - Hypothyroidism, unspecified (3) Type 2 diabetes mellitus: Status: Acute Code(s): E11.9 - Type 2 diabetes mellitus without complications (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 Continue with same medications. 2. Waiting for placement. Reason for continued inpatient stay Substantial Risk for: inability to function Time Spent With Patient Time: Total time managing care of this patient today ____ minutes.
[2024-05-02 20:00] VITALS: BP 129/74; PULSE 82; RESP 16; TEMP 36.3; O2SAT 97
[2024-05-02] MEDS: Insulin Glargine,Hum.rec.anlog 100 UNIT/ML 10 ML VIAL 20 UNIT SUBCUT (20:52)
[2024-05-02] MEDS: lamoTRIgine 100 MG TABLET 150 MG PO (20:53)
[2024-05-02] MEDS: traZODone HCL 50 MG TABLET PO (20:54)
[2024-05-03] MEDS: Levothyroxine Sodium 150 MCG TABLET PO (06:10)
[2024-05-03 06:43] LABS: Glucose, Whole Blood 125 mg/dL (60-115)
[2024-05-03 08:00] VITALS: BP 118/70; PULSE 84; RESP 18; TEMP 36.4; O2SAT 95
[2024-05-03] MEDS: Memantine HCl 5 MG TABLET PO ×2 (09:03→20:54)
[2024-05-03] MEDS: Sertraline HCL 50 MG TABLET PO (09:03)
--- NOTE | 2024-05-03 13:13 | P.PNPSI_ITS ---
Subjective Subjective Date of Service: 05/03/24 Reason For Visit: crisis Interim History: stable, discharging tomorrow. no questions or complaints. per staff, no change in presentation. taking meds, D?C tomorrow. Mental Status Exam Mental Status Exam Patient Appearance: Appropriate Patient Orientation: Person and Situation Level of Consciousness: Awake and Appropriate Patient Behavior: Guarded and Passive Mood Description: Withdrawn Affect Description: Constricted Patient Cognition Impaired: Yes Ability to Follow Directions: Good Speech Pattern: Clear 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: None Delusions: Not Present Thought Process: Distracted and Slowed Thinking Thought Content: positive for [place] and positive for Poverty of Content Judgement: Fair Diagnostics Vital Signs (24Hr): Vital Signs - 24 hr 05/02/24 20:00 05/03/24 08:00 Temperature 97.3 F 97.6 F Pulse Rate 82 84 Respiratory Rate 16 18 Blood Pressure 129/74 118/70 Pulse Oximetry 97 95 Oxygen Delivery Method Room Air Room Air BMI result Body Mass Index 31.8 Labs 09/10/23 20:00 04/30/24 08:52 Labs: Laboratory Results - last 48 hr 05/02/24 05/03/24 06:34 06:39 POC Glucose 115 125 H Imaging Radiology Impressions: ITS Impressions Brain MRI 09/19/23 20:33 IMPRESSION: 1. No demonstrated acute intracranial abnormalities. 2. Chronic mild to moderate nonspecific white matter changes, most notably in the deep white matter of the right frontal lobe. Mild to moderate generalized cerebral volume loss. Chest X-Ray 04/02/24 14:30 IMPRESSION: Moderate biapical pleural thickening. The lungs are clear. Electronically signed by: Matias Cormier MD 04/02/2024 03:12 PM [facility] Medications Medications Current Medications Acetaminophen (Acetaminophen 325 Mg Tablet) 650 mg PO Q6H PRN PRN Reason: Headache/Pain Mild Scale (1-3) Last Admin: 05/02/24 12:24 Dose: 650 mg Al Hydroxide/Mg Hydroxide (Magnesium Hydrox/Alum Hydrox 30 Ml Oral.Susp) 30 ml PO Q6H PRN PRN Reason: Heartburn/Nausea Last Admin: 11/27/23 10:48 Dose: 30 ml Aripiprazole (Aripiprazole Er 300 Mg Suser.Syr) 300 mg IM Q28D@0900 MANAS Last Admin: 04/29/24 09:58 Dose: 300 mg Benzocaine (Throat Lozenge, Medicated Lozenge) 1 lozenge MUCOUS MEM Q2H PRN PRN Reason: Sore Throat Last Admin: 05/02/24 12:11 Dose: 1 lozenge Benztropine Mesylate (Benztropine Mesylate 0.5 Mg Tablet) 0.5 mg PO TID PRN PRN Reason: Extrapyramidal Effects Glucose (Glucose Gel 15 Gm Gel..Gram.) 15 gm PO Q15M PRN; Protocol PRN Reason: per Hypoglycemia Standing Ord. Guaifenesin/Dextromethorphan (Guaifenesin Dm 100/10/5 Ml 5 Ml Syrup) 5 ml PO Q4H PRN PRN Reason: Cough Last Admin: 05/02/24 12:11 Dose: 5 ml Hydroxyzine HCl (Hydroxyzine Hcl 25 Mg Tablet) 25 mg PO Q6H PRN PRN Reason: Anxiety Last Admin: 04/26/24 08:03 Dose: 25 mg Insulin Glargine (Insulin Glargine,Hum.Rec.Anlog 100 Unit/Ml 10 Ml Vial) 20 unit SUBCUT BEDTIME [facility] Last Admin: 05/02/24 20:52 Dose: 20 unit Lamotrigine (Lamotrigine 100 Mg Tablet) 150 mg PO BEDTIME [facility] Last Admin: 05/02/24 20:53 Dose: 150 mg Levothyroxine Sodium (Levothyroxine Sodium 150 Mcg Tablet) 150 mcg PO DAILY@0600 [facility] Last Admin: 05/03/24 06:10 Dose: 150 mcg Magnesium Hydroxide (Milk Of Magnesia 30 Ml Oral.Susp) 30 ml PO DAILY PRN PRN Reason: Constipation Memantine (Memantine Hcl 5 Mg Tablet) 5 mg PO BID [facility] Last Admin: 05/03/24 09:03 Dose: 5 mg Metformin HCl (Metformin Hcl Er 500 Mg Tab.Er.24h) 1,000 mg PO DAILY@1700 [facility] Last Admin: 05/02/24 16:16 Dose: 1,000 mg Ondansetron HCl (Ondansetron Odt 8 Mg Tab.Rapdis) 8 mg TRANSLINGU Q8H PRN PRN Reason: Nausea and Vomiting Last Admin: 02/17/24 10:06 Dose: 8 mg Pseudoephedrine HCl (Pseudoephedrine Hcl 30 Mg Tablet) 30 mg PO Q4H PRN PRN Reason: Nasal Congestion Last Admin: 03/03/24 08:45 Dose: 30 mg Sertraline HCl (Sertraline Hcl 50 Mg Tablet) 50 mg PO DAILY MANAS Last Admin: 05/03/24 09:03 Dose: 50 mg Simethicone (Simethicone 80 Mg Tab.Chew) 80 mg PO QIDWMHS PRN PRN Reason: Gas Trazodone HCl (Trazodone Hcl 50 Mg Tablet) 50 mg PO BEDTIME MRX1 PRN PRN Reason: Insomnia Last Admin: 05/02/24 20:54 Dose: 50 mg Allergies Allergies Allergy/AdvReac Type Severity Reaction Status Date / Time amoxicillin [AMOXICILLIN] Allergy Mild VOMITING/ABD Verified 09/10/23 19:44 PAIN Assessment & Plan Assessment & Plan (1) Schizoaffective disorder: Status: Acute Code(s): F25.9 - Schizoaffective disorder, unspecified (2) Hypothyroidism: Status: Acute Code(s): E03.9 - Hypothyroidism, unspecified (3) Type 2 diabetes mellitus: Status: Acute Code(s): E11.9 - Type 2 diabetes mellitus without complications (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 Continue with same medications. 2. awaiting placement. Reason for continued inpatient stay Substantial Risk for: inability to function and rapid decompensation Time Spent With Patient Time: Total time managing care of this patient today ____ minutes.
[2024-05-03 13:28] VITALS: BMI 31.5
[2024-05-03] MEDS: metFORMIN HCl ER 500 MG TAB.ER.24H 1000 MG PO (16:17)
[2024-05-03 19:51] VITALS: BP 116/66; PULSE 82; RESP 18; TEMP 35.9; O2SAT 95
[2024-05-03] MEDS: Insulin Glargine,Hum.rec.anlog 100 UNIT/ML 10 ML VIAL 20 UNIT SUBCUT (20:54)
[2024-05-03] MEDS: hydrOXYzine HCL 25 MG TABLET PO (20:54)
[2024-05-03] MEDS: traZODone HCL 50 MG TABLET PO (20:54)
[2024-05-03] MEDS: lamoTRIgine 100 MG TABLET 150 MG PO (20:54)
[2024-05-04] MEDS: Levothyroxine Sodium 150 MCG TABLET PO (06:21)
[2024-05-04 06:28] LABS: Glucose, Whole Blood 115 mg/dL (60-115)
--- NOTE | 2024-05-04 08:10 | PM.PSYDC ---
DS: Providers Provider Date of Service: 05/04/24 Date of admission: 09/11/23 11:13 Date of discharge: 05/04/24 Primary care physician: Luigi Hatfield MD Consults: 09/12/23 16:28 Consult to Hospitalist Routine Comment: Consulting Provider: [facility] Reason For Exam: new onset diabetes severe hypothyroidism cognitive 09/19/23 10:47 Consult to Neurology Routine Consulting Provider: [facility] Reason for consultation: worsening cognition see past consult see [facility] mri?rec Has provider been notified: No DS: Diagnosis Discharge Diagnosis (1) Schizoaffective disorder: Status: Acute (2) Hypothyroidism: Status: Acute (3) Type 2 diabetes mellitus: Status: Acute (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 intramuscular syringe (Radha Campbell) benzocaine 15 mg-menthol 3.6 mg 1 jeniffer mucous membrane Q2H PRN Sore 05/04/24 lozenges (Sore Throat (benzocaine Throat 30 days #30 ea with menthol)) dextromethorphan-guaifenesin 10 5 ml PO Q4H PRN Cough #237 mL 05/04/24 mg-100 mg/5 mL oral syrup hydroxyzine HCl 25 mg tablet 25 mg PO Q6H PRN Anxiety 30 days 05/04/24 #60 tabs insulin glargine 100 unit/mL 20 unit (0.2 mL) subcut BEDTIME 30 05/04/24 subcutaneous solution (Lantus days #6 mL U-100 Insulin) lamotrigine 100 mg tablet 150 mg (1.5 x 100 mg) PO BEDTIME 05/04/24 30 days #45 tabs levothyroxine 150 mcg tablet 150 mcg PO DAILY@00 30 days #30 05/04/24 tabs memantine 5 mg tablet 5 mg PO BID 30 days #60 tabs 05/04/24 metformin 500 mg tablet,extended 1,000 mg (2 x 500 mg) PO 05/04/24 release 24 hr DAILY@1700 30 days #60 tabs sertraline 50 mg tablet 50 mg PO DAILY 30 days #30 tabs 05/04/24 trazodone 50 mg tablet 50 mg PO BEDTIME MRX1 PRN Insomnia 05/04/24 30 days #30 tabs Mental Status Exam Mental Status Exam Patient Appearance: Well Grooomed and Appropriate Patient Orientation: Person and Situation Level of Consciousness: Awake and Appropriate Patient Behavior: Guarded and Passive Mood Description: Calm Affect Description: Constricted Patient Cognition Impaired: Yes Ability to Follow Directions: Good Speech Pattern: Clear 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: None Delusions: Not Present Thought Process: Distracted and Slowed Thinking Thought Content: positive for [place] and positive for Poverty of Content Judgement: Fair Data Data Completed and Pending Completed studies during hospitalization [Text1]: 04/28/24 04/29/24 04/30/24 05:52 05:53 06:45 Creatinine Estim Creat Clear Calc Estimated GFR POC Glucose 115 95 125 H 04/30/24 05/01/24 05/02/24 08:52 06:09 06:34 Creatinine 0.93 Estim Creat Clear Calc 97.3 Estimated GFR > 60 POC Glucose 126 H 115 05/03/24 05/04/24 06:39 06:20 Creatinine Estim Creat Clear Calc Estimated GFR POC Glucose 125 H 115 Imaging Diagnostic Imaging Impressions Brain MRI 09/19/23 20:33 IMPRESSION: 1. No demonstrated acute intracranial abnormalities. 2. Chronic mild to moderate nonspecific white matter changes, most notably in the deep white matter of the right frontal lobe. Mild to moderate generalized cerebral volume loss. Chest X-Ray 04/02/24 14:30 IMPRESSION: Moderate biapical pleural thickening. The lungs are clear. Electronically signed by: Matias oCrmier MD 04/02/2024 03:12 PM [facility] DS: Summary Hospital Course Hospital Course: The patient is a 59-year-old male with a past history of psychosis and traumatic brain injury who was initially admitted into the hospital to the adult unit for the compensation. He was taking in the community Haldol 10 mg at bedtime. The patient initially was assessed by crisis and transferred to the adult unit for psychiatric stabilization. The patient was transferred from the adult unit to the geriatric psychiatric unit since the patient needed more nursing services. The patient is ambulatory, easily redirectable but due to his cognitive impairment due to the traumatic brain injury, he needed constant redirection. While he was admitted, his antipsychotic was changed from Haldol to Abilify Maintena to ensure compliance. Also, due to his cognitive impairment he was started on amantadine titrated up to 5 mg p.o. b.i.d.. The patient had a very lengthy admission since his disposition plan was very complicated. He was mildly dysphoric so we started on Zoloft 50 mg p.o. q.a.m. and Lamictal 100 mg at night with for tolerability. At baseline, the patient is intrusive at times but easily redirectable. He has a cognitive impairment and there is no evidence of psychotic symptoms. Since there were no safety concerns the patient was discharged to a correction facility. Since the patient does not have capacity to take informed decisions we needed to filed for court for guardianship and other legal paperwork. Time spent discussing smoking cessation with patient: 3 to 10 minutes Status at Discharge Cognitive/behavioral status at discharge: At baseline impaired Functional status at discharge: independent ambulation Overall status at discharge: patient is back to baseline Time Spent with Patient Time attestation: Total time managing care of this patient today __30__ minutes. Time spent: Less than 30 minutes Discharge Plan Discharge Anticipated Discharge Date/Time: 05/04/24 10:00 Patient Disposition: Xfer SNF Discharge Diagnosis: Schizoaffective disorder bipolar type Traumatic brain injury Diabetes type 2 Hypothyroidism Referrals: Luigi Hatfield MD [Primary Care Provider] - 1 Week Discharge Medications: New acetaminophen 325 mg Tablet 650 mg PO Q6H PRN (Reason: Headache/Pain Mild Scale (1-3)) 30 Days Qty: 30 0RF Abilify Maintena 300 mg Suspension,Extended Rel Syring 300 mg IM Q28D@0900 Qty: 1 0RF Rx Instructions: Next dose on 05/27 insulin glargine [Lantus U-100 Insulin] 100 unit/mL Solution 20 unit subcut BEDTIME 30 Days Qty: 6 0RF trazodone 50 mg Tablet 50 mg PO BEDTIME MRX1 PRN (Reason: Insomnia) 30 Days Qty: 30 0RF dextromethorphan-guaifenesin 10-100 mg/5 mL Syrup 5 ml PO Q4H PRN (Reason: Cough) Qty: 237 0RF levothyroxine 150 mcg Tablet 150 mcg PO DAILY@0600 30 Days Qty: 30 0RF hydroxyzine HCl 25 mg Tablet 25 mg PO Q6H PRN (Reason: Anxiety) 30 Days Qty: 60 0RF metformin 500 mg Tablet Extended Release 24 Hr 1,000 mg PO DAILY@1700 30 Days Qty: 60 0RF sertraline 50 mg Tablet 50 mg PO DAILY 30 Days Qty: 30 0RF lamotrigine 100 mg Tablet 150 mg PO BEDTIME 30 Days Qty: 45 0RF memantine 5 mg Tablet 5 mg PO BID 30 Days Qty: 60 0RF Sore Throat (benzocaine-menth) 15-3.6 mg Lozenge 1 jeniffer mucous membrane Q2H PRN (Reason: Sore Throat) 30 Days Qty: 30 0RF Discontinued haloperidol 10 mg tablet 10 mg PO BEDTIME 30 Days Qty: 30 1RF levothyroxine 200 mcg tablet 200 mcg PO DAILY 30 Days Qty: 30 1RF Discharge Orders: Discharge Order (Routine); Ordered 05/04/24 Ordered By: Deion Light Diet: Advance to usual diet Activity on Discharge: As tolerated Stand Alone Forms: Patient Portal Discharge page Print Language: German Care Plan Goals: Care plan goals achieved in this admission Health Concerns: Continue treatment as an outpatient by primary caregiver and other outpatient providers. Plan of Treatment: Continue psychiatric treatment as an outpatient. Assessment: The patient is a middle-aged male with a past history schizoaffective disorder, traumatic brain injury, diabetes and hypothyroidism who was initially admitted for psychosis. He also has cognitive impairment and he was started on Abilify Maintena for psychosis with good tolerability. Also the patient received other psychotropics that were very well tolerated. At this moment the patient does not have safety concerns ready to be discharged to correction facility.
[2024-05-04] MEDS: Memantine HCl 5 MG TABLET PO (08:13)
[2024-05-04] MEDS: Sertraline HCL 50 MG TABLET PO (08:13)
== END 2024-05-04 10:45 | disposition skilled nursing facility (03) | DRG 750 ==
LOC: HO.ED 22:58 → HO.PADLT16 09-11 11:37 → HO.PGERI 01-15 13:46
PROVIDERS: Physician Assistant; Physician Assistant Medical; Psychiatry & Neurology Psychiatry; Social Worker; Student in an Organized Health Care Education/Training Program; Admitting Provider Registered Nurse; Emergency Provider Emergency Medicine; PCP Internal Medicine; Responsible Provider Psychiatry & Neurology Psychiatry; Visit Provider Psychiatry & Neurology Psychiatry
DX: F25.9 Schizoaffective disorder, unspecified (principal); G92.8 Other toxic encephalopathy; U07.1 COVID-19; S06.9XAS Unspecified intracranial injury with loss of consciousness status unknown, sequela; G31.89 Other specified degenerative diseases of nervous system; Z75.1 Person awaiting admission to adequate facility elsewhere; Z91.148 Patient's other noncompliance with medication regimen for other reason; F09 Unspecified mental disorder due to known physiological condition; E03.9 Hypothyroidism, unspecified; E11.65 Type 2 diabetes mellitus with hyperglycemia; Z59.02 Unsheltered homelessness; Z87.891 Personal history of nicotine dependence; Z79.890 Hormone replacement therapy; Z79.899 Other long term (current) drug therapy
CPT/HCPCS: 0241U; 36415; 70551; 71046; 76377; 80053; 80061; 80307; 81001; 82565; 82947; 83036; 83735; 84439; 84443; 85025; 85652; 86140; 86780; 87635; 93005; 99285; J0401; S9485

== ENCOUNTER → 2023-09-11 08:57 | Outpatient (BNV) | payer OTHER, SELFPAY | PROVIDERS: Admitting Provider Registered Nurse; Emergency Provider Emergency Medicine; PCP Internal Medicine; Visit Provider Internal Medicine Cardiovascular Disease | DX: R94.31 Abnormal electrocardiogram [ECG] [EKG] (principal) | CPT/HCPCS: 93010 ==

== ENCOUNTER 2023-09-11 11:13 | Outpatient (BNV) | payer OTHER, SELFPAY | END 2024-04-02 14:30 | PROVIDERS: Admitting Provider Registered Nurse; Emergency Provider Emergency Medicine; PCP Internal Medicine; Responsible Provider Psychiatry & Neurology Psychiatry; Visit Provider Radiology Diagnostic Radiology | DX: J92.9 Pleural plaque without asbestos (principal) | CPT/HCPCS: 71046 ==

== ENCOUNTER → 2023-09-11 11:13 | Outpatient (BNV) | payer OTHER, SELFPAY | PROVIDERS: Admitting Provider Registered Nurse; Emergency Provider Emergency Medicine; PCP Internal Medicine; Responsible Provider Registered Nurse; Visit Provider Psychiatry & Neurology Psychiatry | DX: F25.0 Schizoaffective disorder, bipolar type (principal); E03.9 Hypothyroidism, unspecified; E11.9 Type 2 diabetes mellitus without complications; G31.89 Other specified degenerative diseases of nervous system | CPT/HCPCS: 99231; 99232; 99499 ==

== ENCOUNTER → 2023-09-11 11:13 | Outpatient (BNV) | payer OTHER, SELFPAY | PROVIDERS: Admitting Provider Registered Nurse; Emergency Provider Emergency Medicine; PCP Internal Medicine; Responsible Provider Registered Nurse; Visit Provider Registered Nurse | DX: F25.0 Schizoaffective disorder, bipolar type (principal); E03.9 Hypothyroidism, unspecified; E11.9 Type 2 diabetes mellitus without complications; G31.89 Other specified degenerative diseases of nervous system | CPT/HCPCS: 99231; 99232; 99233 ==

== ENCOUNTER → 2023-09-11 11:13 | Outpatient (BNV) | payer OTHER, SELFPAY | PROVIDERS: Admitting Provider Registered Nurse; Emergency Provider Emergency Medicine; PCP Internal Medicine; Visit Provider Psychiatry & Neurology Neurology | DX: G92.8 Other toxic encephalopathy (principal) | CPT/HCPCS: 99222 ==